=== PATIENT | male | born 1945 | race Hispanic/Latino ===

== ENCOUNTER 2018-07-27 11:45 | Inpatient (IN) | payer BC, MEDICARE ==
[2018-07-27] MEDS ORDERED: CARDIZEM IV ONE ×2 (12:07→12:38)
[2018-07-27] MEDS ORDERED: NACL 0.9% 1000 ML 1,000 ML ONE (12:19)
[2018-07-27 13:26] LABS: Hematocrit 40.7 % (35.5-45.6); Hemoglobin 13.1 gm/dl (11.8-15.2); Mean Corpuscular HGB Conc 32 % (32-34); Mean Corpuscular Volume 104 fl (84-94); Platelet Count 242 K/mm3 (140-440); Red Blood Count 3.91 M/mm3 (3.65-5.03); Red Cell Distribution Width 16.3 % (13.2-15.2)
[2018-07-27 13:32] LABS: INR 1.34 (0.87-1.13)
[2018-07-27 13:33] LABS: Partial Thromboplastin Time 34.3 Sec. (24.2-36.6)
[2018-07-27 13:53] LABS: Alanine Aminotransferase 16 units/L (7-56); Albumin 3.6 g/dL (3.9-5); BUN/Creatinine Ratio 24; Blood Urea Nitrogen 38 mg/dL (9-20); Calcium 9.9 mg/dL (8.4-10.2); Hemolysis Index 16
[2018-07-27] MEDS ORDERED: NACL 0.9% 1000 ML 1,000 ML IV ONE (13:55)
[2018-07-27] MEDS ORDERED: CARDIZEM/D5W 100MG/100ML 100 MG/100 ML BAG IV SCH (14:00)
[2018-07-27 14:11] LABS: Basophils % (Manual) 0 % (0.0-1.8); Eosinophils % (Manual) 0 % (0.0-4.3); Myelocytes # (Manual) 0.6 K/mm3; Total Cells Counted 100
[2018-07-27 14:12] LABS: Anisocytosis 1+; Platelet Estimate Consistent w Auto; Toxic Vacuolation Few
--- NOTE | 2018-07-27 14:32 | Emergency Department Report ---
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 Patient states for the last 2 days he's been short of breath and fatigue. Patient states he was at his steam frame operator's office today and received an echogram along with blood work and was told to come to the emergency department. Patient denies any chest pain, abdominal pain, headache. -: Gradual Severity scale (0 -10): 0 Consistency: constant Improves with: none Worsens with: none Associated Symptoms: denies other symptoms Treatments Prior to Arrival: none - Related Data Home Medications Medication Instructions Recorded Confirmed Last Taken Pravastatin Sodium 40 mg PO DAILY 12/12/13 07/27/18 07/27/18 Fluticasone/Salmeterol [Advair 1 puff IH BID 12/31/15 07/27/18 07/27/18 Diskus 250-50 mcg] ALBUTEROL Inhaler (OR & NICU) 2 puff IH QID PRN 07/27/18 07/27/18 Unknown [Proair] Aspirin [Aspirin BABY CHEW TAB] 81 mg PO DAILY 07/27/18 07/27/18 07/27/18 Cyanocobalamin (Vitamin B-12) 2,500 mcg PO DAILY 07/27/18 07/27/18 07/27/18 [Vitamin B12] [place]-3S/Dha/Epa/Fish Oil/D3 [Fish 1 each PO DAILY 07/27/18 07/27/18 07/27/18 Mie-Ycavi-2-Vit D Softgel] Previous Rx's Medication Instructions Recorded Last Taken Type Clopidogrel [Plavix] 75 mg PO DAILY #30 tablet 04/03/15 07/27/18 Rx amLODIPine [Norvasc] 10 mg PO DAILY #30 tablet 04/03/15 07/27/18 Rx Allergies Allergy/AdvReac Type Severity Reaction Status Date / Time No Known Allergies Allergy Verified 12/12/13 06:46 ED Review of Systems ROS: Stated complaint: SOB Other details as noted in HPI Constitutional: denies: chills, fever Eyes: denies: eye pain, eye discharge, vision change ENT: denies: ear pain, throat pain Respiratory: shortness of breath. denies: cough, wheezing Cardiovascular: palpitations. denies: chest pain Endocrine: no symptoms reported Gastrointestinal: denies: abdominal pain, nausea, diarrhea Genitourinary: denies: urgency, dysuria Musculoskeletal: denies: back pain, joint swelling, arthralgia Skin: denies: rash, lesions Neurological: denies: headache, weakness, paresthesias Psychiatric: denies: anxiety, depression Hematological/Lymphatic: denies: easy bleeding, easy bruising ED Past Medical Hx - Past Medical History Hx Hypertension: Yes (9yrs ago) Hx Heart Attack/AMI: No Hx Deep Vein Thrombosis: Yes Hx Liver Disease: No Hx Renal Disease: No Hx Sickle Cell Disease: No Hx Arthritis: Yes Hx Seizures: No Hx Asthma: No Hx COPD: Yes Additional medical history: Skin cancer - Surgical History Hx Pacemaker: No Hx Internal Defibrillator: No Additional Surgical History: Vein bypass- Right Leg - Social History Smoking Status: Former Smoker Substance Use Type: None - Medications Home Medications: Home Medications Medication Instructions Recorded Confirmed Last Taken Type Pravastatin Sodium 40 mg PO DAILY 12/12/13 07/27/18 07/27/18 History Clopidogrel [Plavix] 75 mg PO DAILY #30 tablet 04/03/15 07/27/18 07/27/18 Rx amLODIPine [Norvasc] 10 mg PO DAILY #30 tablet 04/03/15 07/27/18 07/27/18 Rx Fluticasone/Salmeterol [Advair 1 puff IH BID 12/31/15 07/27/18 07/27/18 History Diskus 250-50 mcg] ALBUTEROL Inhaler (OR & NICU) 2 puff IH QID PRN 07/27/18 07/27/18 Unknown History [Proair] Aspirin [Aspirin BABY CHEW TAB] 81 mg PO DAILY 07/27/18 07/27/18 07/27/18 History Cyanocobalamin (Vitamin B-12) 2,500 mcg PO DAILY 07/27/18 07/27/18 07/27/18 History [Vitamin B12] [place]-3S/Dha/Epa/Fish Oil/D3 [Fish 1 each PO DAILY 07/27/18 07/27/18 07/27/18 History Jfu-Jbvxq-0-Vit D Softgel] ED Physical Exam - General Limitations: No Limitations General appearance: alert, in no apparent distress - Head Head exam: Present: atraumatic, normocephalic - Eye Eye exam: Present: normal appearance, PERRL, EOMI - ENT ENT exam: Present: mucous membranes moist - Neck Neck exam: Present: normal inspection - Respiratory Respiratory exam: Present: normal lung sounds bilaterally. Absent: respiratory distress, wheezes, rales - Cardiovascular Cardiovascular Exam: Present: normal rhythm, tachycardia, other (irregularly irregular). Absent: systolic murmur, diastolic murmur, rubs, gallop - GI/Abdominal GI/Abdominal exam: Present: soft, normal bowel sounds. Absent: distended, tenderness - Rectal Rectal exam: Present: deferred - Extremities Exam Extremities exam: Present: normal inspection - Back Exam Back exam: Present: normal inspection - Neurological Exam Neurological exam: Present: alert, oriented X3, CN II-XII intact. Absent: motor sensory deficit - Psychiatric Psychiatric exam: Present: normal affect, normal mood - Skin Skin exam: Present: warm, dry, intact, normal color. Absent: rash ED Course Vital Signs 07/27/18 07/27/18 07/27/18 11:54 12:00 12:08 Temperature 98.0 F Pulse Rate 163 H 166 H Respiratory 35 H Rate Blood Pressure 111/89 111/89 O2 Sat by Pulse 87 81 L 78 L Oximetry 07/27/18 07/27/18 07/27/18 12:16 12:30 12:46 Temperature Pulse Rate 147 H 134 H 146 H Respiratory 34 H 32 H 30 H Rate Blood Pressure 98/53 98/53 98/53 O2 Sat by Pulse 73 L 73 L 74 L Oximetry 07/27/18 12:57 Temperature Pulse Rate 142 H Respiratory Rate Blood Pressure 98/61 O2 Sat by Pulse Oximetry ED Medical Decision Making - Lab Data Result diagrams: 07/27/18 12:59 07/27/18 12:59 Lab Results 07/27/18 07/27/18 07/27/18 Range/Units 12:59 12:59 12:59 WBC 15.8 H (4.5-11.0) K/mm3 RBC 3.91 (3.65-5.03) M/mm3 Hgb 13.1 (11.8-15.2) gm/dl Hct 40.7 (35.5-45.6) % MCV 104 H (84-94) fl MCH 34 H (28-32) pg MCHC 32 (32-34) % RDW 16.3 H (13.2-15.2) % Plt Count 242 (140-440) K/mm3 Add Manual Diff Complete Total Counted 100 Seg Neutrophils % Layout Operator Seg Neuts % (Manual) 88.0 H (40.0-70.0) % Band Neutrophils % 0 % Lymphocytes % (Manual) 3.0 L (13.4-35.0) % Reactive Lymphs % (Man) 0 % Monocytes % (Manual) 3.0 (0.0-7.3) % Eosinophils % (Manual) 0 (0.0-4.3) % Basophils % (Manual) 0 (0.0-1.8) % Metamyelocytes % 2.0 % Myelocytes % 4.0 % Promyelocytes % 0 % Blast Cells % 0 % Nucleated RBC % Not Reportable Seg Neutrophils # Man 13.9 H (1.8-7.7) K/mm3 Band Neutrophils # 0.0 K/mm3 Lymphocytes # (Manual) 0.5 L (1.2-5.4) K/mm3 Abs React Lymphs (Man) 0.0 K/mm3 Monocytes # (Manual) 0.5 (0.0-0.8) K/mm3 Eosinophils # (Manual) 0.0 (0.0-0.4) K/mm3 Basophils # (Manual) 0.0 (0.0-0.1) K/mm3 Metamyelocytes # 0.3 K/mm3 Myelocytes # 0.6 K/mm3 Promyelocytes # 0.0 K/mm3 Blast Cells # 0.0 K/mm3 WBC Morphology Not Reportable Hypersegmented Neuts Not Reportable Hyposegmented Neuts Not Reportable Hypogranular Neuts Not Reportable Smudge Cells Not Reportable Toxic Granulation Not Reportable Toxic Vacuolation Few Dohle Bodies Not Reportable Pelger-Huet Anomaly Not Reportable Janiya Rods Not Reportable Platelet Estimate Consistent w auto Clumped Platelets Not Reportable Plt Clumps, EDTA Not Reportable Large Platelets Not Reportable Giant Platelets Not Reportable Platelet Satelliting Not Reportable Plt Morphology Comment Not Reportable RBC Morphology Not Reportable Dimorphic RBCs Not Reportable Polychromasia Not Reportable Hypochromasia Not Reportable Poikilocytosis Not Reportable Anisocytosis 1+ Microcytosis Not Reportable Macrocytosis Not Reportable Spherocytes Not Reportable Pappenheimer Bodies Not Reportable Sickle Cells Not Reportable Target Cells Not Reportable Tear Drop Cells Not Reportable Ovalocytes Not Reportable Helmet Cells Not Reportable Lr-[place] Bodies Not Reportable [place] Rings Not Reportable [place] Cells Not Reportable Bite Cells Not Reportable Crenated Cell Not Reportable Elliptocytes Not Reportable Acanthocytes (Spur) Not Reportable Rouleaux Not Reportable Hemoglobin C Crystals Not Reportable Schistocytes Not Reportable Malaria parasites Not Reportable Jigar Bodies Not Reportable Hem Pathologist Commnt No PT 17.0 H (12.2-14.9) Sec. INR 1.34 H (0.87-1.13) APTT 34.3 (24.2-36.6) Sec. Sodium 139 (137-145) mmol/L Potassium 5.0 (3.6-5.0) mmol/L Chloride 100.0 (98-107) mmol/L Carbon Dioxide 21 L (22-30) mmol/L Anion Gap 23 mmol/L BUN 38 H (9-20) mg/dL Creatinine 1.6 H (0.8-1.5) mg/dL Estimated GFR 42 ml/min BUN/Creatinine Ratio 24 % Glucose 78 (75-100) mg/dL Calcium 9.9 (8.4-10.2) mg/dL Total Bilirubin 1.30 H (0.1-1.2) mg/dL AST 15 (5-40) units/L ALT 16 (7-56) units/L Alkaline Phosphatase 62 (35-129) units/L Troponin T < 0.010 (0.00-0.029) ng/mL NT-Pro-B Natriuret Pep 3913 H (0-900) pg/mL Total Protein 6.2 L (6.3-8.2) g/dL Albumin 3.6 L (3.9-5) g/dL Albumin/Globulin Ratio 1.4 % - EKG Data -: EKG Interpreted by Me Rate: tachycardia (irregularly irregular) - Medical Decision Making Patient given 2 boluses of Cardizem at 20 mg's heart rate decreasing from 180 to 130 patient was placed on a Cardizem drip Patient given Lasix IV Critical care attestation.: If time is entered above; I have spent that time in minutes in the direct care of this critically ill patient, excluding procedure time. ED Disposition Clinical Impression: Atrial fibrillation with RVR Disposition: OP ADMIT IP TO THIS HOSP Is pt being admited?: Yes Does the pt Need Aspirin: Yes Condition: Fair Referrals: PRIMARY CARE, [Primary Care Provider] - 3-5 Days
[2018-07-27] MEDS ORDERED: LASIX IV ONE (14:52)
[2018-07-27] MEDS ORDERED: BABY ASPIRIN PO ONE (15:16)
--- NOTE | 2018-07-27 15:38 | History and Physical Report ---
History of Present Illness Chief complaint: My chest is hurting, and my heart is beating fast History of present illness: 73 YO Male with H/O COPD, PVD, HTN, HLD, Seizure Disorder, Skin Cancer presents to ED for evaluation. Pt states that he has experienced shortness and chest palpitations over the past 2 days with worsening symptoms over the past 1 day. Pt acknowledges decreased exercise tolerance, as well as dypsnea on exertion. 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 Pt denies fever, chills, leg swelling, calf pain, CP with deep breathing, hemoptysis, Prolonged air/car travel, or immobility, Back Pain, Syncope, Lightheadedness, recent ill contacts, unintentional weight loss, night sweats, or bone pain. Pt seen and evaluated in ED and found to have Atrial Fib with RVR refractory to cardizem drip, but improved with Amiodarone Drip, Acute Hypoxemic Respiratory Failure, SIRS. Pt admitted to ICU. Cardiology consulted in ED. Pulmonary team consulted in ED. Past History Past Medical History: cancer, COPD, hypertension, PVD Past Surgical History: Other (Right leg surgery) Social history: , lives with family. denies: smoking, alcohol abuse, prescription drug abuse Family history: hypertension Medications and Allergies Allergies Allergy/AdvReac Type Severity Reaction Status Date / Time No Known Allergies Allergy Verified 12/12/13 06:46 Home Medications Medication Instructions Recorded Confirmed Last Taken Type Pravastatin Sodium 40 mg PO DAILY 12/12/13 07/27/18 07/27/18 History Clopidogrel [Plavix] 75 mg PO DAILY #30 tablet 04/03/15 07/27/18 07/27/18 Rx amLODIPine [Norvasc] 10 mg PO DAILY #30 tablet 04/03/15 07/27/18 07/27/18 Rx Fluticasone/Salmeterol [Advair 1 puff IH BID 12/31/15 07/27/18 07/27/18 History Diskus 250-50 mcg] ALBUTEROL Inhaler (OR & NICU) 2 puff IH QID PRN 07/27/18 07/27/18 Unknown Hi story [Proair] Aspirin [Aspirin BABY CHEW TAB] 81 mg PO DAILY 12/12/18 12/12/18 12/12/18 His tory Cyanocobalamin (Vitamin B-12) 2,500 mcg PO DAILY 07/27/18 07/27/18 07/27/18 History [Vitamin B12] [place]-3S/Dha/Epa/Fish Oil/D3 [Fish 1 each PO DAILY 07/27/18 07/27/18 07/27/18 History [place]-7-Vit D Softgel] Active Meds: Active Medications Diltiazem HCl (Cardizem/D5w 100mg/100ml) 100 mg in 100 mls @ 5 mls/hr IV DIRECT IGNACIO; Protocol Last Admin: 07/27/18 13:48 Dose: 5 mg/hr, 5 mls/hr Documented by: Review of Systems Constitutional: no weight loss, no weight gain, no fever Ears, nose, mouth and throat: no ear pain, no ear discharge, no tinnitis, no decreased hearing, no nose pain Cardiovascular: chest pain, palpitations, rapid/irregular heart beat, shortness of breath, decreased exercise tolerance Respiratory: no cough, no cough with sputum, no excessive sputum, no hemoptysis Gastrointestinal: no nausea, no vomiting, no diarrhea, no constipation Genitourinary Male: no hematuria, no flank pain, no discharge, no urinary frequency Rectal: no pain, no incontinence, no bleeding Musculoskeletal: no neck stiffness, no neck pain, no arm numbness/tingling, no low back pain Integumentary: no rash, no pruritis, no redness, no sores, no wounds Neurological: no paralysis, no weakness, no parathesias, no numbness, no tingling, no seizures Psychiatric: no anxiety, no memory loss, no change in sleep habits, no sleep disturbances, no insomnia, no hypersomnia, no change in appetite Endocrine: no cold intolerance, no heat intolerance, no polyphagia, no excessive thirst, no polydipsia, no polyuria Hematologic/Lymphatic: no easy bruising, no easy bleeding, no lymphadenopathy, no lymphedema Allergic/Immunologic: no urticaria, no allergic rhinitis, no wheezing, no pers istent infections, no anaphylaxis, no angioedema Exam - Constitutional Vitals: Temp Pulse Resp BP Pulse Ox 98.0 F 157 H 37 H 118/64 60 L 07/27/18 12:08 07/27/18 15:00 07/27/18 15:16 07/27/18 15:16 07/27/18 15:16 General appearance: Present: mild distress - EENT Eyes: Present: PERRL ENT: hearing intact, clear oral mucosa - Neck Neck: Present: supple, normal ROM - Respiratory Respiratory effort: normal Respiratory: bilateral: CTA - Cardiovascular Rhythm: irregularly irregular Heart Sounds: Present: S1 & S2. Absent: rub, click - Extremities Extremities: pulses symmetrical, No edema Peripheral Pulses: within normal limits - Abdominal General gastrointestinal: Present: soft, non-tender, non-distended, normal bowel sounds Male genitourinary: Present: normal - Integumentary Integumentary: Present: clear, warm, dry - Musculoskeletal Musculoskeletal: gait normal, strength equal bilaterally - Psychiatric Psychiatric: appropriate mood/affect, intact judgment & insight - Neurologic Neurologic: CNII-XII intact, moves all extremities Results - Labs CBC & Chem 7: 07/27/18 17:59 07/27/18 12:59 Labs: Abnormal lab results 07/27/18 07/27/18 07/27/18 Range/Units 12:59 12:59 12:59 WBC 15.8 H (4.5-11.0) K/mm3 MCV 104 H (84-94) fl MCH 34 H (28-32) pg RDW 16.3 H (13.2-15.2) % Seg Neuts % (Manual) 88.0 H (40.0-70.0) % Lymphocytes % (Manual) 3.0 L (13.4-35.0) % Seg Neutrophils # Man 13.9 H (1.8-7.7) K/mm3 Lymphocytes # (Manual) 0.5 L (1.2-5.4) K/mm3 PT 17.0 H (12.2-14.9) Sec. INR 1.34 H (0.87-1.13) Carbon Dioxide 21 L (22-30) mmol/L BUN 38 H (9-20) mg/dL Creatinine 1.6 H (0.8-1.5) mg/dL Total Bilirubin 1.30 H (0.1-1.2) mg/dL NT-Pro-B Natriuret Pep 3913 H (0-900) pg/mL Total Protein 6.2 L (6.3-8.2) g/dL Albumin 3.6 L (3.9-5) g/dL Assessment and Plan - Patient Problems (1) Acute respiratory failure Current Visit: No Status: Acute Qualifiers: Respiratory failure complication: hypoxia Qualified Code(s): J96.01 - Acute respiratory failure with hypoxia Plan to address problem: Admit to ICU, chest x ray, bnp, heparin drip, supplemental oxygen, pulse oximetry, ABG, NIPPV as clinically indicated, xopenex nebs, Pulmonary consulted in ED. The high probability of a clinically significant, sudden or life threatening deterioration of the [pulmonary, cardiac, renal] system(s) required my full and direct attention, intervention and personal management. The aggregate critical care time was [65] minutes. This time is in addition to time spent performing reported procedures but includes the following: [x] Data Review and interpretation [x] Patient assessment and monitoring of vital signs [x] Documentation [x] Medication orders and management (2) ARF (acute renal failure) with tubular necrosis Current Visit: Yes Status: Acute Plan to address problem: IVF resuscitation therapy as tolerated, serial bmp, monitor uop q shift, monitor serum creatnine (3) Atrial fibrillation Current Visit: Yes Status: Acute Qualifiers: Atrial fibrillation type: persistent Qualified Code(s): I48.1 - Persistent atrial fibrillation Plan to address problem: IV antiarrythmic therpay with amiodarone, supportive care, therapeutic anticoagulation, (4) CHF (congestive heart failure) Current Visit: Yes Status: Acute Qualifiers: Heart failure type: systolic Heart failure chronicity: acute Qualified Code(s): I50.21 - Acute systolic (congestive) heart failure Plan to address problem: Admit to ICU, supportive care, strict I/o, daily weight, cardiology consulted in ED, afterload reduction, (5) Sepsis Current Visit: Yes Status: Acute Qualifiers: Sepsis type: sepsis due to unspecified organism Qualified Code(s): A41.9 - Sepsis, unspecified organism Plan to address problem: IV antibiotic therpay, monitor uop q shift, gentle IVF resuscitation secondary to CHF, serial lactic acid level, chest x ray, urinalysis, blood cultures, (6) Acidosis Current Visit: Yes Status: Acute Plan to address problem: IVF resuscitation therapy, serial lactic acid level (7) DVT prophylaxis Current Visit: Yes Status: Acute Plan to address problem: SCD to BLE while in bed.
[2018-07-27] MEDS ORDERED: SODIUM CHLORIDE FLUSH SYRINGE 10 ML IV PRN (15:59)
--- NOTE | 2018-07-27 16:04 | XRay Report ---
FINAL REPORT EXAM: XR CHEST 1V AP HISTORY: SOB. TECHNIQUE: Frontal chest x-ray. PRIORS: None currently available. FINDINGS: Hypoaerated lungs accentuate the pulmonary markings and cardiac silhouette. Mild cardiomegaly. Aortic calcifications. Prominent central pulmonary markings. Ill-defined opacity left lung base suggest effusion with adjace nt infiltrate or subsegmental atelectasis. No pneumothorax. Focal infiltrate or subsegmental atelecta sis at the right lung base. There are no suspicious osseous lesions. IMPRESSION: Mild cardiomegaly. Pulmonary findings suggest pulmonary vascular congestion with edema. Please correlate for CHF. Small left pleural effusion. Mild bibasilar subsegmental atelectasis and or infiltrates.
[2018-07-27 16:35] LABS: Free T4 (Free Thyroxine) 1.28 ng/dL (0.76-1.46)
--- NOTE | 2018-07-27 16:36 | Event Note ---
Date: 07/27/18 Pt sent from our office for eval/management of atrial fibrillation with RVR. Pt reports SOB since Wednesday evening, no chest pain or SOB. Agree with amio gtt. Initiate PO cardizem. Initiate heparin gtt. Tx to CCU. Pt underwent echo in our office this AM - will obtain report. Pete WILLIAMSON NP / DR. SOLARES
[2018-07-27] MEDS: CORDARONE 900 MG in D5W 482 ML IV SCH (16:42)
[2018-07-27] MEDS ORDERED: CORDARONE 150 MG in D5W 97 ML IV ONE (16:58)
[2018-07-27] MEDS ORDERED: NACL 0.45% 1000 ML 2,000 ML IV SCH (17:00)
[2018-07-27] MEDS ORDERED: HEPARIN 10,000 UNITS/10 ML IV ONE (17:37)
[2018-07-27 17:52] LABS: INR 1.24 (0.87-1.13); Partial Thromboplastin Time 31.9 Sec. (24.2-36.6)
[2018-07-27 18:10] LABS: Hemoglobin 13.5 gm/dl (11.8-15.2)
[2018-07-27] MEDS: HEPARIN/ 0.45% NACL-25,000 UNIT/500 ML 25,000 UNIT/500 ML BAG IV SCH (18:10)
[2018-07-27] MEDS ORDERED: XOPENEX IH ONE ×2 (18:17→18:45)
[2018-07-27] MEDS ORDERED: DIPRIVAN 10 MG/ML 1,000 MG/100 ML BOTTLE IV ONE (20:06)
[2018-07-27] MEDS ORDERED: AMIDATE IV ONE ×2 (20:06→23:00)
[2018-07-27] MEDS ORDERED: ARTIFICIAL TEARS OPHTH OINT OU PRN (20:09)
[2018-07-27] MEDS ORDERED: QUELICIN IV ONE (20:13)
--- NOTE | 2018-07-27 20:16 | Procedure Note ---
Date of procedure: 07/27/18 Pre-op diagnosis: hypoxia. resp distress. Post-op diagnosis: same Procedure: Patient satting 60-70% on a nonrebreather. Patient having increased work to breathe. Patient having retractions. Discussed case with hospitalist. Hospitalist requested the patient to be intubated. Procedure note: 20 mg of etomidate and 100 mg succinylcholine given. Patient intubated with a fiberoptic scope. 7.5 tube placed at 22 at the lip. Patient today without problems. No difficulties or palpitations. Patient's oxygen saturation immediately increased after intubation. Patient satting 97% post procedure. Patient placed on sedation. Placement confirmation with chest x-ray. Disposition: ICU
[2018-07-27] MEDS: DIPRIVAN 10 MG/ML 1,000 MG/100 ML BOTTLE IV SCH (20:20)
[2018-07-27] MEDS: SODIUM CHLORIDE FLUSH SYRINGE 10 ML IV SCH (21:30)
[2018-07-27] MEDS: CARDIZEM PO SCH (21:37)
[2018-07-27] MEDS: PULMICORT IH SCH (21:46)
[2018-07-27] MEDS: BROVANA NEBU IH SCH (21:46)
[2018-07-27] MEDS ORDERED: NON-FORMULARY (Fluticasone/Salmeterol [Advair Diskus 250-50 Mcg] 1 PUFF) IH SCH (22:00)
--- NOTE | 2018-07-27 22:03 | XRay Report ---
FINAL REPORT EXAM: XR CHEST 1V AP HISTORY: ETT placement TECHNIQUE: AP portable view of the chest. PRIORS: Chest x-ray performed earlier on the same day FINDINGS: There is an endotracheal tube in place which appears adequately positioned in the distal trachea. The re is an NG tube in place which courses below the diaphragm and below the lower margin of the film. The cardiomediastinal silhouette appears normal. There is prominence of the bilateral interstitial ma rkings without change. There is a left basilar opacity consistent with pleural effusion without eric e. The bones and soft tissues are unremarkable. IMPRESSION: The endotracheal tube appears adequately positioned. There is a left basilar opacity consistent with a pleural effusion. Prominent interstitial markings suspicious for pulmonary edema.
[2018-07-27] MEDS ORDERED: QUELICIN ONE (23:00)
[2018-07-27] MEDS ORDERED: NACL 0.45% 1000 ML 1,000 ML IV SCH (23:15)
[2018-07-27] MEDS ORDERED: LASIX IV STA (23:18)
[2018-07-27] MEDS: ROCEPHIN/NS 2 GM/100 ML 2 GM/100 ML BAG IV SCH (23:51)
--- NOTE | 2018-07-28 03:34 | XRay Report ---
FINAL REPORT PROCEDURE: XR CHEST 1V AP TECHNIQUE: Chest radiograph anteroposterior view. CPT 88807 HISTORY: follow up respiratory failure COMPARISON: 07/27/2018 FINDINGS: Heart: Normal. Mediastinum/Vessels: Normal. Lungs/Pleural space: Left lower lobe infiltrates and effusion unchanged from prior study. Lungs are o therwise expanded. There are mild fibrotic changes. There is pleural thickening at the right lung ape x. There is no pneumothorax.. Bony thorax: No acute osseous abnormality. Life support devices: ET tube is in the distal trachea. NG tube is in the stomach.. IMPRESSION: The heart size is normal.. Left lower lobe infiltrates and effusion unchanged from prior study. Lungs are otherwise expanded. Th ere are mild fibrotic changes. There is pleural thickening at the right lung apex. There is no pneumo thorax.. ET tube is in the distal trachea. NG tube is in the stomach..
[2018-07-28] MEDS ORDERED: TYLENOL PR PRN (04:34)
[2018-07-28] MEDS: DIPRIVAN 10 MG/ML 1,000 MG/100 ML BOTTLE IV SCH ×2 (04:45→17:39)
[2018-07-28] MEDS ORDERED: NACL 0.9% 250ML 250 ML IV ONE ×2 (04:53→10:30)
[2018-07-28] MEDS ORDERED: VANCOMYCIN PHARMACY TO DOSE IV SCH (05:00)
[2018-07-28] MEDS ORDERED: VANCOMYCIN 1,750 MG in NACL 0.9% 500 ML 500 ML IV ONE (05:00)
[2018-07-28] MEDS: CARDIZEM PO SCH ×4 (05:29→17:40)
[2018-07-28] MEDS: CORDARONE 900 MG in D5W 482 ML IV SCH (05:46)
[2018-07-28 06:33] LABS: Hematocrit 36.4 % (35.5-45.6); Hemoglobin 11.5 gm/dl (11.8-15.2); Mean Corpuscular HGB Conc 32 % (32-34); Mean Corpuscular Volume 104 fl (84-94); Platelet Count 275 K/mm3 (140-440); Red Blood Count 3.51 M/mm3 (3.65-5.03); Red Cell Distribution Width 16.6 % (13.2-15.2)
[2018-07-28 06:44] LABS: Calcium 9.3 mg/dL (8.4-10.2)
[2018-07-28] MEDS: BROVANA NEBU IH SCH ×2 (08:22→20:06)
[2018-07-28] MEDS: PULMICORT IH SCH ×3 (08:23→20:06)
[2018-07-28 09:18] LABS: Band Neutrophils # (Manual) 3.4 K/mm3; Basophils % (Manual) 0 % (0.0-1.8); Eosinophils % (Manual) 0 % (0.0-4.3); Total Cells Counted 100
[2018-07-28 09:19] LABS: Anisocytosis 1+; Dohle Bodies 1+
[2018-07-28 09:20] LABS: Giant Platelets Few; Platelet Estimate Consistent w Auto
[2018-07-28] MEDS ORDERED: NON-FORMULARY (Cyanocobalamin (Vitamin B-12) [Vitamin B12] 2,500 MCG) PO SCH (10:00)
[2018-07-28] MEDS ORDERED: EPA PO SCH (10:00)
[2018-07-28] MEDS ORDERED: FISH OIL PO SCH (10:00)
[2018-07-28] MEDS ORDERED: D3 PO SCH (10:00)
[2018-07-28] MEDS ORDERED: OMEGA PO SCH (10:00)
[2018-07-28] MEDS ORDERED: DHA PO SCH (10:00)
--- NOTE | 2018-07-28 10:58 | Consultation ---
History of Present Illness Consult date: 07/28/18 Requesting physician: NARCISA MEJIA Reason for consult: other (Acute Hypoxemic Respiratory Failure; Sepsis Syndrome) History of present illness: PULMONARY/CCM CONSULT NOTE (Full dictation # [id number]) Please see dictated notes for full details Past History Past Medical History: cancer, COPD, hypertension, PVD Past Surgical History: Other (Right leg surgery) Social history: , lives with family. denies: smoking, alcohol abuse, prescription drug abuse Family history: hypertension Medications and Allergies Allergies Allergy/AdvReac Type Severity Reaction Status Date / Time No Known Allergies Allergy Verified 12/12/13 06:46 Home Medications Medication Instructions Recorded Confirmed Last Taken Type Pravastatin Sodium 40 mg PO DAILY 12/12/13 07/27/18 07/27/18 History Clopidogrel [Plavix] 75 mg PO DAILY #30 tablet 04/03/15 07/27/18 07/27/18 Rx amLODIPine [Norvasc] 10 mg PO DAILY #30 tablet 04/03/15 07/27/18 07/27/18 Rx Fluticasone/Salmeterol [Advair 1 puff IH BID 12/31/15 07/27/18 07/27/18 History Diskus 250-50 mcg] ALBUTEROL Inhaler (OR & NICU) 2 puff IH QID PRN 07/27/18 07/27/18 Unknown History [Proair] Aspirin [Aspirin BABY CHEW TAB] 81 mg PO DAILY 07/27/18 07/27/18 07/27/18 History Cyanocobalamin (Vitamin B-12) 2,500 mcg PO DAILY 07/27/18 07/27/18 07/27/18 History [Vitamin B12] [place]-3S/Dha/Epa/Fish Oil/D3 [Fish 1 each PO DAILY 07/27/18 07/27/18 07/27/18 History Bjx-Akjen-3-Vit D Softgel] Active Meds: Active Medications Acetaminophen (Tylenol) 650 mg ND Q4H PRN PRN Reason: Fever >101 Last Admin: 07/28/18 05:29 Dose: 650 mg Documented by: Amlodipine Besylate (Norvasc) 10 mg PO DAILY [facility] Arformoterol Tartrate (Brovana Nebu) 15 mcg IH Q12HRT [facility] Last Admin: 07/28/18 08:22 Dose: 15 mcg Documented by: Aspirin (Baby Aspirin) 81 mg PO DAILY [facility] Budesonide (Pulmicort) 0.5 mg IH Q12HRT [facility] Last Admin: 07/28/18 08:23 Dose: 0.5 mg Documented by: Clopidogrel Bisulfate (Plavix) 75 mg PO DAILY [facility] Cyanocobalamin (Vitamin B-12) 2,500 mcg PO QDAY [facility] Diltiazem HCl (Cardizem) 60 mg PO Q6HR [facility] Last Admin: 07/28/18 05:29 Dose: Not Given Documented by: Famotidine (Pepcid) 20 mg IV DAILY [facility] Hydrophilic Ointment (Vaseline Lip Therapy) 1 applic TP Q2HR PRN PRN Reason: Dry Lips Amiodarone HCl 900 mg/ (Dextrose) 500 mls @ 33.33 mls/hr IV DIRECT [facility]; Protocol Last Titration: 07/28/18 07:20 Dose: 0.5 mg/min, 16.67 mls/hr Documented by: Ceftriaxone Sodium (Rocephin/Ns 2 Gm/100 Ml) 2 gm in 100 mls @ 200 mls/hr IV Q24H [facility]; Protocol Last Infusion: 07/28/18 00:21 Dose: Infused Documented by: Heparin Sodium/Sodium Chloride (Heparin/ 0.45% Nacl-25,000 Unit/500 Ml) 25,000 unit in 500 mls @ 24 mls/hr IV TITR [facility]; Protocol Last Titration: 07/28/18 09:10 Dose: 1,450 units/hr, 29 mls/hr Documented by: Propofol (Diprivan 10 Mg/Ml) 1,000 mg in 100 mls @ 2.531 mls/hr IV TITR [facility]; Protocol Last Admin: 07/28/18 04:45 Dose: 15 mcg/kg/min, 7.593 mls/hr Documented by: Sodium Chloride (Nacl 0.45% 1000 Ml) 1,000 mls @ 20 mls/hr IV DIRECT [facility] Last Infusion: 07/28/18 00:21 Dose: 20 mls/hr Documented by: Multi-Ingred Cream/Lotion/Oil/Oint (Artificial Tears Ophth Oint) 1 applic OU Q4HR PRN PRN Reason: Dry Eye(s) Pravastatin Sodium (Pravachol) 40 mg PO DAILY [facility] Sodium Chloride (Sodium Chloride Flush Syringe 10 Ml) 10 ml IV BID [facility] Last Admin: 07/27/18 21:30 Dose: Not Given Documented by: Sodium Chloride (Sodium Chloride Flush Syringe 10 Ml) 10 ml IV PRN PRN PRN Reason: LINE FLUSH Physical Examination Vital signs: Vital Signs Pulse Ox 87 07/27/18 11:54 Results - Laboratory Findings CBC and BMP: 07/28/18 06:01 07/28/18 06:01 ABG POC ABG pH 7.186 (7.35-7.45) L 07/28/18 05:40 POC ABG pCO2 60.1 (35-45) H 07/28/18 05:40 POC ABG pO2 68 (80-105) L 07/28/18 05:40 POC ABG HCO3 22.7 07/28/18 05:40 POC ABG Total CO2 25 07/28/18 05:40 POC ABG O2 Sat 88 07/28/18 05:40 PT/INR, D-dimer PT 16.0 Sec. (12.2-14.9) H 07/27/18 17:09 INR 1.24 (0.87-1.13) H 07/27/18 17:09 D-Dimer 798.17 ng/mlDDU (0-234) H 07/27/18 15:52 Abnormal lab findings: Abnormal Labs 07/27/18 07/27/18 07/27/18 12:59 12:59 12:59 WBC 15.8 H RBC Hgb MCV 104 H MCH 34 H RDW 16.3 H Seg Neuts % (Manual) 88.0 H Lymphocytes % (Manual) 3.0 L Seg Neutrophils # Man 13.9 H Lymphocytes # (Manual) 0.5 L PT 17.0 H INR 1.34 H D-Dimer Heparin Anti-Xa Level POC ABG pH POC ABG pCO2 POC ABG pO2 Sodium Potassium Chloride Carbon Dioxide 21 L BUN 38 H Creatinine 1.6 H Lactic Acid Total Bilirubin 1.30 H NT-Pro-B Natriuret Pep 3913 H Total Protein 6.2 L Albumin 3.6 L 07/27/18 07/27/18 07/27/18 15:52 16:12 17:09 WBC RBC Hgb MCV MCH RDW Seg Neuts % (Manual) Lymphocytes % (Manual) Seg Neutrophils # Man Lymphocytes # (Manual) PT 16.0 H INR 1.24 H D-Dimer 798.17 H Heparin Anti-Xa Level POC ABG pH POC ABG pCO2 POC ABG pO2 Sodium Potassium Chloride Carbon Dioxide BUN Creatinine Lactic Acid 5.00 H* Total Bilirubin NT-Pro-B Natriuret Pep Total Protein Albumin 07/27/18 07/27/18 07/27/18 17:59 18:07 21:31 WBC RBC Hgb MCV MCH RDW Seg Neuts % (Manual) Lymphocytes % (Manual) Seg Neutrophils # Man Lymphocytes # (Manual) PT INR D-Dimer Heparin Anti-Xa Level POC ABG pH 7.344 L POC ABG pCO2 POC ABG pO2 36 L Sodium Potassium Chloride Carbon Dioxide BUN Creatinine Lactic Acid 5.20 H* 5.00 H* Total Bilirubin NT-Pro-B Natriuret Pep Total Protein Albumin 07/27/18 07/27/18 07/27/18 21:57 22:42 23:26 WBC RBC Hgb MCV MCH RDW Seg Neuts % (Manual) Lymphocytes % (Manual) Seg Neutrophils # Man Lymphocytes # (Manual) PT INR D-Dimer Heparin Anti-Xa Level POC ABG pH 7.199 L POC ABG pCO2 62.0 H POC ABG pO2 Sodium Potassium Chloride Carbon Dioxide BUN Creatinine Lactic Acid 4.70 H* 5.00 H* Total Bilirubin NT-Pro-B Natriuret Pep Total Protein Albumin 07/28/18 07/28/18 07/28/18 00:45 05:40 05:58 WBC RBC Hgb MCV MCH RDW Seg Neuts % (Manual) Lymphocytes % (Manual) Seg Neutrophils # Man Lymphocytes # (Manual) PT INR D-Dimer Heparin Anti-Xa Level 0.11 L POC ABG pH 7.186 L POC ABG pCO2 60.1 H POC ABG pO2 68 L Sodium Potassium Chloride Carbon Dioxide BUN Creatinine Lactic Acid 4.70 H* Total Bilirubin NT-Pro-B Natriuret Pep Total Protein Albumin 07/28/18 07/28/18 07/28/18 06:01 06:01 07:19 WBC 12.5 H RBC 3.51 L Hgb 11.5 L MCV 104 H MCH 33 H RDW 16.6 H Seg Neuts % (Manual) Lymphocytes % (Manual) Seg Neutrophils # Man Lymphocytes # (Manual) PT INR D-Dimer Heparin Anti-Xa Level 0.14 L POC ABG pH POC ABG pCO2 POC ABG pO2 Sodium 135 L Potassium 5.1 H Chloride 95.0 L Carbon Dioxide 21 L BUN 54 H Creatinine 2.6 H D Lactic Acid Total Bilirubin NT-Pro-B Natriuret Pep Total Protein Albumin 07/28/18 07/28/18 07:19 09:20 WBC RBC Hgb MCV MCH RDW Seg Neuts % (Manual) Lymphocytes % (Manual) Seg Neutrophils # Man Lymphocytes # (Manual) PT INR D-Dimer Heparin Anti-Xa Level POC ABG pH POC ABG pCO2 POC ABG pO2 Sodium Potassium Chloride Carbon Dioxide BUN Creatinine Lactic Acid 4.00 H* 3.90 H* Total Bilirubin NT-Pro-B Natriuret Pep Total Protein Albumin
[2018-07-28] MEDS: BABY ASPIRIN PO SCH (11:21)
[2018-07-28] MEDS: NORVASC PO SCH (11:21)
[2018-07-28] MEDS: PLAVIX PO SCH (11:22)
[2018-07-28] MEDS: PRAVACHOL PO SCH (11:22)
[2018-07-28] MEDS: VITAMIN B-12 PO SCH (11:22)
[2018-07-28] MEDS: SODIUM CHLORIDE FLUSH SYRINGE 10 ML IV SCH ×2 (12:10→21:51)
[2018-07-28] MEDS: PEPCID IV SCH (12:10)
--- NOTE | 2018-07-28 12:34 | Consultation ---
History of Present Illness Consult date: 07/28/18 Requesting physician: NARCISA MEJIA Consult reason: congestive heart failure History of present illness: The pt is a 73 YO male with a past medical history of PVD, COPD, on O2 at nighttime, nonobstructive CAD, HTN, HLP. He is followed in our office by Dr. Bender. Pt presented to our office yesterday for cardiac testing and c/o extreme SOB x 3 days. He was then sent from our office for further eval/management. Yesterday, pt was A&O on evaluation with c/o SOB, no chest pain or palpitations. Pt was noted to be in AFib with RVR and was initiated on amio and heparin gtts and tx to CCU. He developed respiratory failure overnight and was intubated. This AM, he remained intubated and sedated. He converted to NSR overnight. He remains on amio and heparin gtt. LHC done 12/2015 showed nonobstructive CAD, LAD calcified mid 60%, Diagonal 1 patent with mild LI, circ and OM2 patent, OM1 ostial 60% lesion, RCA mid 30% to rtuosity, normal LV function. Treat medically. Echo done 05/2017 showed EF 55-60%, grade 1 diastolic dysfunction, mild TR, RVSP 22mmHg. Past History Past Medical History: CAD, COPD, hypertension, hyperlipidemia, PVD Past Surgical History: Other (Right leg surgery) Social history: , lives with family. denies: smoking, alcohol abuse, prescription drug abuse Family history: hypertension Medications and Allergies Allergies Allergy/AdvReac Type Severity Reaction Status Date / Time No Known Allergies Allergy Verified 12/12/13 06:46 Home Medications Medication Instructions Recorded Confirmed Last Taken Type Pravastatin Sodium 40 mg PO DAILY 12/12/13 07/27/18 07/27/18 History Clopidogrel [Plavix] 75 mg PO DAILY #30 tablet 04/03/15 07/27/18 07/27/18 Rx amLODIPine [Norvasc] 10 mg PO DAILY #30 tablet 04/03/15 07/27/18 07/27/18 Rx Fluticasone/Salmeterol [Advair 1 puff IH BID 12/31/15 07/27/18 07/27/18 History Diskus 250-50 mcg] ALBUTEROL Inhaler (OR & NICU) 2 puff IH QID PRN 07/27/18 07/27/18 Unknown History [Proair] Aspirin [Aspirin BABY CHEW TAB] 81 mg PO DAILY 07/27/18 07/27/18 07/27/18 History Cyanocobalamin (Vitamin B-12) 2,500 mcg PO DAILY 07/27/18 07/27/18 07/27/18 History [Vitamin B12] [place]-3S/Dha/Epa/Fish Oil/D3 [Fish 1 each PO DAILY 07/27/18 07/27/18 07/27/18 History [place]by-Xucov-1-Vit D Softgel] Active Meds: Active Medications Acetaminophen (Tylenol) 650 mg NC Q4H PRN PRN Reason: Fever >101 Last Admin: 07/28/18 05:29 Dose: 650 mg Documented by: Amlodipine Besylate (Norvasc) 10 mg PO DAILY [facility] Last Admin: 07/28/18 11:21 Dose: Not Given Documented by: Arformoterol Tartrate (Brovana Nebu) 15 mcg IH Q12HRT [facility] Last Admin: 07/28/18 08:22 Dose: 15 mcg Documented by: Aspirin (Baby Aspirin) 81 mg PO DAILY [facility] Last Admin: 07/28/18 11:21 Dose: Not Given Documented by: Budesonide (Pulmicort) 0.5 mg IH Q12HRT [facility] Last Admin: 07/28/18 08:23 Dose: 0.5 mg Documented by: Clopidogrel Bisulfate (Plavix) 75 mg PO DAILY [facility] Last Admin: 07/28/18 11:22 Dose: Not Given Documented by: Cyanocobalamin (Vitamin B-12) 2,500 mcg PO QDAY [facility] Last Admin: 07/28/18 11:22 Dose: Not Given Documented by: Diltiazem HCl (Cardizem) 60 mg PO Q6HR [facility] Last Admin: 07/28/18 11:22 Dose: Not Given Documented by: Famotidine (Pepcid) 20 mg IV DAILY [facility] Hydrophilic Ointment (Vaseline Lip Therapy) 1 applic TP Q2HR PRN PRN Reason: Dry Lips Amiodarone HCl 900 mg/ (Dextrose) 500 mls @ 33.33 mls/hr IV DIRECT [facility]; Protocol Last Titration: 07/28/18 07:20 Dose: 0.5 mg/min, 16.67 mls/hr Documented by: Ceftriaxone Sodium (Rocephin/Ns 2 Gm/100 Ml) 2 gm in 100 mls @ 200 mls/hr IV Q 24H [facility]; Protocol Last Infusion: 07/28/18 00:21 Dose: Infused Documented by: Heparin Sodium/Sodium Chloride (Heparin/ 0.45% Nacl-25,000 Unit/500 Ml) 25,000 unit in 500 mls @ 24 mls/hr IV TITR [facility]; Protocol Last Titration: 07/28/18 09:10 Dose: 1,450 units/hr, 29 mls/hr Documented by: Propofol (Diprivan 10 Mg/Ml) 1,000 mg in 100 mls @ 2.531 mls/hr IV TITR [facility]; Protocol Last Admin: 07/28/18 04:45 Dose: 15 mcg/kg/min, 7.593 mls/hr Documented by: Azithromycin 500 mg/ Sodium (Chloride) 250 mls @ 250 mls/hr IV Q24HR [facility] Sodium Chloride (Nacl 0.9% 1000 Ml) 1,000 mls @ 75 mls/hr IV DIRECT [facility] Stop: 07/30/18 02:19 Multi-Ingred Cream/Lotion/Oil/Oint (Artificial Tears Ophth Oint) 1 applic OU Q4HR PRN PRN Reason: Dry Eye(s) Pravastatin Sodium (Pravachol) 40 mg PO DAILY [facility] Last Admin: 07/28/18 11:22 Dose: Not Given Documented by: Sodium Chloride (Sodium Chloride Flush Syringe 10 Ml) 10 ml IV BID [facility] Last Admin: 07/27/18 21:30 Dose: Not Given Documented by: Sodium Chloride (Sodium Chloride Flush Syringe 10 Ml) 10 ml IV PRN PRN PRN Reason: LINE FLUSH Review of Systems Constitutional: no fever, no chills, no sweats Ears, nose, mouth and throat: no ear pain, no nose pain, no sinus pressure, no sinus pain Cardiovascular: shortness of breath, no chest pain, no orthopnea, no palpitations, no rapid/irregular heart beat, no edema, no syncope, no lightheadedness Respiratory: shortness of breath, no cough, no congestion, no wheezing, no pain on inspiration Gastrointestinal: no abdominal pain, no nausea, no vomiting, no diarrhea, no constipation, no change in bowel habits Genitourinary Male: no dysuria, no hematuria, no flank pain, no discharge, no urinary frequency, no urinary hesitancy Musculoskeletal: no neck stiffness, no neck pain, no shooting arm pain, no arm numbness/tingling, no low back pain, no shooting leg pain Integumentary: no rash, no pruritis, no redness, no sores, no wounds Neurological: no head injury, no paralysis, no weakness, no parathesias, no numbness, no tingling, no seizures, no syncope Psychiatric: no anxiety Endocrine: no cold intolerance, no heat intolerance Hematologic/Lymphatic: no easy bruising, no easy bleeding Allergic/Immunologic: no urticaria, no wheezing Physical Examination Vital Signs Pulse Ox 87 07/27/18 11:54 General appearance: other (intubated, sedated) HEENT: Positive: Normocephaly, Mucus Membranes Moist Neck: Positive: neck supple, trachea midline Cardiac: Positive: Regular Rhythm, S1/S2 Lungs: Positive: Decreased Breath Sounds, Rhonchi, Oxygen, Ventilated Respirations Neuro: Positive: Other (intubated, sedated ) Skin: Negative: Rash, Wound Musculoskeletal: No Pain Extremities: Absent: edema Results 07/28/18 06:01 07/28/18 06:01 Cardiac Enzymes 07/27/18 Range/Units 12:59 AST 15 (5-40) units/L Coagulation 07/27/18 07/27/18 Range/Units 12:59 17:09 PT 17.0 H 16.0 H (12.2-14.9) Sec. INR 1.34 H 1.24 H (0.87-1.13) APTT 34.3 31.9 (24.2-36.6) Sec. CBC 07/27/18 07/27/18 07/28/18 Range/Units 12:59 17:59 06:01 WBC 15.8 H 12.5 H (4.5-11.0) K/mm3 RBC 3.91 3.51 L (3.65-5.03) M/mm3 Hgb 13.1 13.5 11.5 L (11.8-15.2) gm/dl Hct 40.7 42.0 36.4 (35.5-45.6) % Plt Count 242 276 275 (140-440) K/mm3 Comprehensive Metabolic Panel 07/27/18 07/28/18 Range/Units 12:59 06:01 Sodium 139 135 L (137-145) mmol/L Potassium 5.0 5.1 H (3.6-5.0) mmol/L Chloride 100.0 95.0 L (98-107) mmol/L Carbon Dioxide 21 L 21 L (22-30) mmol/L BUN 38 H 54 H (9-20) mg/dL Creatinine 1.6 H 2.6 H D (0.8-1.5) mg/dL Glucose 78 82 (75-100) mg/dL Calcium 9.9 9.3 (8.4-10.2) mg/dL AST 15 (5-40) units/L ALT 16 (7-56) units/L Alkaline Phosphatase 62 (35-129) units/L Total Protein 6.2 L (6.3-8.2) g/dL Albumin 3.6 L (3.9-5) g/dL - Imaging and Cardiology Echo: report reviewed (05/2017 showed EF 55-60%, grade 1 diastolic dysfunction, mild TR, RVSP 22mmHg. 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 Treat medically. ) EKG: report reviewed, image reviewed EKG interpretations - Telemetry EKG Rhythm: Sinus Rhythm - EKG Supraventricular dysrhythmia: atrial fibrillation Assessment and Plan Cont present cardiac management and supportive measures. Vent weaning per pulmonary. Pt underwent echo in our office yesterday AM. Will retrieve report. The patient has been seen in conjunction with Dr. Goodwin who agrees with the assessment and plan of care. - Patient Problems (1) Transient atrial fibrillation Current Visit: Yes Status: Acute (2) Acute respiratory failure Current Visit: Yes Status: Acute Qualifiers: Respiratory failure complication: hypoxia Qualified Code(s): J96.01 - Acute respiratory failure with hypoxia (3) COPD (chronic obstructive pulmonary disease) Current Visit: Yes Status: Chronic (4) Pneumonia Current Visit: Yes Status: Acute (5) Nonobstructive atherosclerosis of coronary artery Current Visit: Yes Status: Chronic (6) Hypertension Current Visit: Yes Status: Chronic Qualifiers: Hypertension type: essential hypertension (7) Hyperlipemia Current Visit: Yes Status: Chronic Qualifiers: Hyperlipidemia type: Mixed hyperlipidemia Qualified Code(s): E78.2 - Mixed hyperlipidemia (8) Peripheral vascular disease Current Visit: Yes Status: Chronic (9) CARLEE (acute kidney injury) Current Visit: Yes Status: Acute (10) Lactic acid acidosis Current Visit: Yes Status: Acute
--- NOTE | 2018-07-28 12:56 | Progress Note ---
Assessment and Plan Assessment and plan: Sepsis. Continue IV antibiotics and follow-up blood cultures. Patient with lactic acid levels in the 5 range but now trending downward. Left lower lobe pneumonia. Continue antibiotics and follow chest x-ray. Acute hypoxemic respiratory failure. Etiology secondary to above. Continue on mechanical ventilation and weaning per pulmonary. Follow-up serial chest x-ray and ABGs. Atrial fibrillation. Patient currently on IV amiodarone. Cardiology consultation pending. Check echocardiogram. Acute renal failure. Etiology likely secondary to sepsis/ATN. Check renal ultrasound. COPD exacerbation. Continue bronchodilators/nebulizers. Consider steroids if okay with pulmonary. Hypertension. Resume antihypertensive medications as needed. Hyperlipidemia. Peripheral vascular disease. The high probability of a clinically significant, sudden or life threatening deterioration of the [respiratory] system(s) required my full and direct attention, intervention and personal management. The aggregate critical care time was [32] minutes. This time is in addition to time spent performing rep orted procedures but includes the following: [x] Data Review and interpretation [x] Patient assessment and monitoring of vital signs [x] Documentation [x] Medication orders and management History Interval history: 73 YO Male with H/O COPD, PVD, HTN, HLD, Seizure Disorder, Skin Cancer presents to ED for evaluation. Pt states that he has experienced shortness and chest palpitations over the past 2 days with worsening symptoms over the past 1 day. P t acknowledges decreased exercise tolerance, as well as dyspnea on exertion. Pt was seen and evaluated by his digital product manager today and was sent to [facility] ED for further care and evaluation. Pt denies fever, chills, leg swelling, calf pain, CP with deep breathing, hemoptysis, Prolonged air/car travel, or immobility, Back Pain, Syncope, Lightheadedness, recent ill contacts, unintentional weight loss, night sweats, or bone pain. Pt seen and evaluated in ED and found to have Atrial Fib with RVR refractory to cardizem drip, but improved with Amiodarone Drip, Acute Hypoxemic Respiratory Failure, SIRS. Pt admitted to ICU. The patient later after admission had further decompensation with respiratory dis tress. Patient reportedly was satting 60-70% on a nonrebreather and had to be emergently intubated. The patient remains intubated on mechanical ventilation and to prevent drip. Patient also on amiodarone drip. Hospitalist Physical - Constitutional Vitals: Temp Pulse Resp BP Pulse Ox 99.7 F H 103 H 27 H 116/54 95 07/28/18 08:00 07/28/18 11:06 07/28/18 10:30 07/28/18 11:06 07/28/18 11:06 General appearance: Present: mild distress, other (intubated on mechanical ventilation) - EENT Eyes: Present: PERRL, EOM intact ENT: hearing intact, clear oral mucosa, dentition normal - Neck Neck: Present: supple, normal ROM - Respiratory Respiratory effort: normal Respiratory: bilateral: diminished, rales, rhonchi - Cardiovascular Rhythm: regular Heart Sounds: Present: S1 & S2. Absent: gallop, rub - Extremities Extremities: no ischemia, No edema, Full ROM - Abdominal General gastrointestinal: soft, non-tender, non-distended, normal bowel sounds - Integumentary Integumentary: Present: clear, warm, dry - Neurologic Neurologic: CNII-XII intact, moves all extremities Results - Labs CBC & Chem 7: 07/28/18 06:01 07/28/18 06:01 Labs: Laboratory Last Values WBC 12.5 K/mm3 (4.5-11.0) H 07/28/18 06:01 RBC 3.51 M/mm3 (3.65-5.03) L 07/28/18 06:01 Hgb 11.5 gm/dl (11.8-15.2) L 07/28/18 06:01 Hct 36.4 % (35.5-45.6) 07/28/18 06:01 MCV 104 fl (84-94) H 07/28/18 06:01 MCH 33 pg (28-32) H 07/28/18 06:01 MCHC 32 % (32-34) 07/28/18 06:01 RDW 16.6 % (13.2-15.2) H 07/28/18 06:01 Plt Count 275 K/mm3 (140-440) 07/28/18 06:01 Add Manual Diff Complete 07/28/18 06:01 Total Counted 100 07/28/18 06:01 Seg Neutrophils % Industrial Renderer 07/28/18 06:01 Seg Neuts % (Manual) 47.0 % (40.0-70.0) 07/28/18 06:01 Band Neutrophils % 27.0 % 07/28/18 06:01 Lymphocytes % (Manual) 16.0 % (13.4-35.0) 07/28/18 06:01 Reactive Lymphs % (Man) 0 % 07/28/18 06:01 Monocytes % (Manual) 1.0 % (0.0-7.3) 07/28/18 06:01 Eosinophils % (Manual) 0 % (0.0-4.3) 07/28/18 06:01 Basophils % (Manual) 0 % (0.0-1.8) 07/28/18 06:01 Metamyelocytes % 1.0 % 07/28/18 06:01 Myelocytes % 8.0 % 07/28/18 06:01 Promyelocytes % 0 % 07/28/18 06:01 Blast Cells % 0 % 07/28/18 06:01 Nucleated RBC % Not Reportable 07/28/18 06:01 Seg Neutrophils # Man 5.9 K/mm3 (1.8-7.7) 07/28/18 06:01 Band Neutrophils # 3.4 K/mm3 07/28/18 06:01 Lymphocytes # (Manual) 2.0 K/mm3 (1.2-5.4) 07/28/18 06:01 Abs React Lymphs (Man) 0.0 K/mm3 07/28/18 06:01 Monocytes # (Manual) 0.1 K/mm3 (0.0-0.8) 07/28/18 06:01 Eosinophils # (Manual) 0.0 K/mm3 (0.0-0.4) 07/28/18 06:01 Basophils # (Manual) 0.0 K/mm3 (0.0-0.1) 07/28/18 06:01 Metamyelocytes # 0.1 K/mm3 07/28/18 06:01 Myelocytes # 1.0 K/mm3 07/28/18 06:01 Promyelocytes # 0.0 K/mm3 07/28/18 06:01 Blast Cells # 0.0 K/mm3 07/28/18 06:01 Pathologist Review 07/28/18 06:01 WBC Morphology Not Reportable 07/28/18 06:01 Hypersegmented Neuts Not Reportable 07/28/18 06:01 Hyposegmented Neuts Not Reportable 07/28/18 06:01 Hypogranular Neuts Not Reportable 07/28/18 06:01 Smudge Cells Not Reportable 07/28/18 06:01 Toxic Granulation Not Reportable 07/28/18 06:01 Toxic Vacuolation Not Reportable 07/28/18 06:01 Dohle Bodies 1+ 07/28/18 06:01 Pelger-Huet Anomaly Not Reportable 07/28/18 06:01 Janiya Rods Not Reportable 07/28/18 06:01 Platelet Estimate Consistent w auto 07/28/18 06:01 Clumped Platelets Not Reportable 07/28/18 06:01 Plt Clumps, EDTA Not Reportable 07/28/18 06:01 Large Platelets Not Reportable 07/28/18 06:01 Giant Platelets Few 07/28/18 06:01 Platelet Satelliting Not Reportable 07/28/18 06:01 Plt Morphology Comment Not Reportable 07/28/18 06:01 RBC Morphology Not Reportable 07/28/18 06:01 Dimorphic RBCs Not Reportable 07/28/18 06:01 Polychromasia Not Reportable 07/28/18 06:01 Hypochromasia Not Reportable 07/28/18 06:01 Poikilocytosis Not Reportable 07/28/18 06:01 Anisocytosis 1+ 07/28/18 06:01 Microcytosis Not Reportable 07/28/18 06:01 Macrocytosis Not Reportable 07/28/18 06:01 Spherocytes Not Reportable 07/28/18 06:01 Pappenheimer Bodies Not Reportable 07/28/18 06:01 Sickle Cells Not Reportable 07/28/18 06:01 Target Cells Not Reportable 07/28/18 06:01 Tear Drop Cells Not Reportable 07/28/18 06:01 Ovalocytes Not Reportable 07/28/18 06:01 Helmet Cells Not Reportable 07/28/18 06:01 Lr-[place] Bodies Not Reportable 07/28/18 06:01 [place] Rings Not Reportable 07/28/18 06:01 [place] Cells Not Reportable 07/28/18 06:01 Bite Cells Not Reportable 07/28/18 06:01 Crenated Cell Not Reportable 07/28/18 06:01 Elliptocytes Not Reportable 07/28/18 06:01 Acanthocytes (Spur) Not Reportable 07/28/18 06:01 Rouleaux Not Reportable 07/28/18 06:01 Hemoglobin C Crystals Not Reportable 07/28/18 06:01 Schistocytes Not Reportable 07/28/18 06:01 Malaria parasites Not Reportable 07/28/18 06:01 Jigar Bodies Not Reportable 07/28/18 06:01 Hem Pathologist Commnt Sent to pathology 07/28/18 06:01 PT 16.0 Sec. (12.2-14.9) H 07/27/18 17:09 INR 1.24 (0.87-1.13) H 07/27/18 17:09 APTT 31.9 Sec. (24.2-36.6) 07/27/18 17:09 D-Dimer 798.17 ng/mlDDU (0-234) H 07/27/18 15:52 Heparin Anti-Xa Level 0.14 U.I./ml (0.3-0.7) L 07/28/18 07:19 POC ABG pH 7.266 (7.35-7.45) L 07/28/18 11:06 POC ABG pCO2 49.7 (35-45) H 07/28/18 11:06 POC ABG pO2 74 (80-105) L 07/28/18 11:06 POC ABG HCO3 22.6 07/28/18 11:06 POC ABG Total CO2 24 07/28/18 11:06 POC ABG O2 Sat 92 07/28/18 11:06 POC ABG Base Excess -4 07/28/18 11:06 FiO2 80 % 07/28/18 11:06 Sodium 135 mmol/L (137-145) L 07/28/18 06:01 Potassium 5.1 mmol/L (3.6-5.0) H 07/28/18 06:01 Chloride 95.0 mmol/L (98-107) L 07/28/18 06:01 Carbon Dioxide 21 mmol/L (22-30) L 07/28/18 06:01 Anion Gap 24 mmol/L 07/28/18 06:01 BUN 54 mg/dL (9-20) H 07/28/18 06:01 Creatinine 2.6 mg/dL (0.8-1.5) H D 07/28/18 06:01 Estimated GFR 24 ml/min 07/28/18 06:01 BUN/Creatinine Ratio 21 % 07/28/18 06:01 Glucose 82 mg/dL (75-100) 07/28/18 06:01 Lactic Acid 3.90 mmol/L (0.7-2.0) H* 07/28/18 09:20 Calcium 9.3 mg/dL (8.4-10.2) 07/28/18 06:01 Magnesium 1.80 mg/dL (1.7-2.3) 07/27/18 15:52 Total Bilirubin 1.30 mg/dL (0.1-1.2) H 07/27/18 12:59 AST 15 units/L (5-40) 07/27/18 12:59 ALT 16 units/L (7-56) 07/27/18 12:59 Alkaline Phosphatase 62 units/L (35-129) 07/27/18 12:59 Troponin T < 0.010 ng/mL (0.00-0.029) 07/27/18 12:59 NT-Pro-B Natriuret Pep 3913 pg/mL (0-900) H 07/27/18 12:59 Total Protein 6.2 g/dL (6.3-8.2) L 07/27/18 12:59 Albumin 3.6 g/dL (3.9-5) L 07/27/18 12:59 Albumin/Globulin Ratio 1.4 % 07/27/18 12:59 TSH 1.180 mlU/mL (0.270-4.200) 07/27/18 15:52 Free T4 1.28 ng/dL (0.76-1.46) 07/27/18 15:52 Nutrition/Malnutrition Assess - Dietary Evaluation Nutrition/Malnutrition Findings: Nutrition Notes Start: 07/28/18 10:54 Freq: Status: Active Protocol: Document 07/28/18 10:54 TW (Rec: 07/28/18 11:11 TW [id number]) Co-Sign 07/28/18 10:54 LP Nutrition Notes Need for Assessment generated from: MD Order Initial or Follow up Assessment Current Diagnoses Acute Kidney Injury COPD Sepsis Hypertension Heart Failure Respiratory Failure Other Pertinent Diagnosis Hx of Skin Cancer Current Diet NPO Labs/Tests Na: 135 K: 5.1 BUN: 54 Cr: 2.6 Medications Propofol Height 5 ft 8 in Weight 84.368 kg [place] Body Weight (lbs) 154.0 BMI 28.3 Subjective/Other Information MD consult for evaluation of nutritional intake. Pt on vent . Per pt friend in room, pt ate at [facility] 07/26. Burn Absent Trauma Absent #1 Nutrition Diagnoses Inadequate oral intake Etiology Mechanical Ventilation As Evidenced by Signs and Symptoms NPO Is patient on ventilator? Yes Is Patient Ambulatory and/or Out of Bed No [facility] 1870.008 Calculation Used for Recommendations [facility] Additional Notes Fluid needs: 1ml/kcal Protein needs (1.2-2 kg/g) 102 -169 g/day Nutrition Intervention Change Diet Order: Advance when medically feasible. Goal #1 Diet Advancement or TF Anticipated Discharge Needs: Unable to determine at this time Follow-Up By: 08/01/18 Additional Comments F/U for POC
[2018-07-28] MEDS: NACL 0.9% 1000 ML 1,000 ML IV SCH ×2 (13:30→21:52)
[2018-07-28] MEDS: ZITHROMAX 500 MG in NACL 0.9% 250ML 250 ML IV SCH (13:38)
[2018-07-28] MEDS ORDERED: PANCREAZE DR 10,500 UNIT FEEDTUBE PRN (13:57)
[2018-07-28] MEDS ORDERED: SODIUM BICARBONATE FEEDTUBE PRN (13:57)
[2018-07-28] MEDS ORDERED: SIMPLE SYRUP FEEDTUBE PRN ×2 (13:57)
--- NOTE | 2018-07-28 14:11 | Consultation ---
History of Present Illness - Reason for Consult Consult date: 07/28/18 acute renal failure, hyperkalemia - History of Present Illness The patient is a 73 YO male with history significant for HTN, HLD, PVD, COPD on O2 at nighttime, nonobstructive CAD and ?DM who presented from the Director Digital [employer] office with c/o extreme SOB. Pt was noted to be in AFib with RVR and was initiated on IV Amio and Heparin drip. He developed respiratory failure overnight and was intubated. He was converted to NSR overnight. BP is low. Creatinine increased from 1.6 to 2.6 today. Patient was not able to provide any history. Past History Past Medical History: CAD, COPD, hypertension, hyperlipidemia, PVD Past Surgical History: Other (Right leg surgery) Social history: , lives with family. denies: smoking, alcohol abuse, prescription drug abuse Family history: hypertension Medications and Allergies Allergies Allergy/AdvReac Type Severity Reaction Status Date / Time No Known Allergies Allergy Verified 12/12/13 06:46 Home Medications Medication Instructions Recorded Confirmed Last Taken Type Pravastatin Sodium 40 mg PO DAILY 12/12/13 07/27/18 07/27/18 History Clopidogrel [Plavix] 75 mg PO DAILY #30 tablet 04/03/15 07/27/18 07/27/18 Rx amLODIPine [Norvasc] 10 mg PO DAILY #30 tablet 04/03/15 07/27/18 07/27/18 Rx Fluticasone/Salmeterol [Advair 1 puff IH BID 12/31/15 07/27/18 07/27/18 History Diskus 250-50 mcg] ALBUTEROL Inhaler (OR & NICU) 2 puff IH QID PRN 07/27/18 07/27/18 Unknown History [Proair] Aspirin [Aspirin BABY CHEW TAB] 81 mg PO DAILY 07/27/18 07/27/18 07/27/18 History Cyanocobalamin (Vitamin B-12) 2,500 mcg PO DAILY 07/27/18 07/27/18 07/27/18 History [Vitamin B12] Adams-3S/Dha/Epa/Fish Oil/D3 [Fish 1 each PO DAILY 07/27/18 07/27/18 07/27/18 History Yar-Bcgnn-5-Vit D Softgel] Active Meds: Active Medications Acetaminophen (Tylenol) 650 mg IL Q4H PRN PRN Reason: Fever >101 Last Admin: 07/28/18 05:29 Dose: 650 mg Documented by: Amlodipine Besylate (Norvasc) 10 mg PO DAILY [facility] Last Admin: 07/28/18 11:21 Dose: Not Given Documented by: Lipase/Protease/Amylase (Sergo Mccarthy 10,500 Unit) 1 each FEEDTUBE PRN PRN PRN Reason: For Clogged Feeding Tube Arformoterol Tartrate (Brovana Nebu) 15 mcg IH Q12HRT [facility] Last Admin: 07/28/18 08:22 Dose: 15 mcg Documented by: Aspirin (Baby Aspirin) 81 mg PO DAILY [facility] Last Admin: 07/28/18 11:21 Dose: Not Given Documented by: Budesonide (Pulmicort) 0.5 mg IH Q12HRT [facility] Last Admin: 07/28/18 08:23 Dose: 0.5 mg Documented by: Clopidogrel Bisulfate (Plavix) 75 mg PO DAILY [facility] Last Admin: 07/28/18 11:22 Dose: Not Given Documented by: Cyanocobalamin (Vitamin B-12) 2,500 mcg PO QDAY [facility] Last Admin: 07/28/18 11:22 Dose: Not Given Documented by: Diltiazem HCl (Cardizem) 60 mg PO Q6HR [facility] Last Admin: 07/28/18 11:22 Dose: Not Given Documented by: Famotidine (Pepcid) 20 mg IV DAILY [facility] Last Admin: 07/28/18 12:10 Dose: 20 mg Documented by: Hydrophilic Ointment (Vaseline Lip Therapy) 1 applic TP Q2HR PRN PRN Reason: Dry Lips Amiodarone HCl 900 mg/ (Dextrose) 500 mls @ 33.33 mls/hr IV DIRECT IGNACIO; Protocol Last Titration: 07/28/18 07:20 Dose: 0.5 mg/min, 16.67 mls/hr Documented by: Ceftriaxone Sodium (Rocephin/Ns 2 Gm/100 Ml) 2 gm in 100 mls @ 200 mls/hr IV Q24H [facility]; Protocol Last Infusion: 07/28/18 00:21 Dose: Infused Documented by: Heparin Sodium/Sodium Chloride (Heparin/ 0.45% Nacl-25,000 Unit/500 Ml) 25,000 unit in 500 mls @ 24 mls/hr IV TITR IGNACIO; Protocol Last Titration: 07/28/18 09:10 Dose: 1,450 units/hr, 29 mls/hr Documented by: Propofol (Diprivan 10 Mg/Ml) 1,000 mg in 100 mls @ 2.531 mls/hr IV TITR IGNACIO; Protocol Last Admin: 07/28/18 04:45 Dose: 15 mcg/kg/min, 7.593 mls/hr Documented by: Azithromycin 500 mg/ Sodium (Chloride) 250 mls @ 250 mls/hr IV Q24HR IGNACIO Last Admin: 07/28/18 13:38 Dose: 250 mls/hr Documented by: Sodium Chloride (Nacl 0.9% 1000 Ml) 1,000 mls @ 75 mls/hr IV DIRECT IGNACIO Stop: 07/30/18 02:19 Last Admin: 07/28/18 13:30 Dose: 75 mls/hr Documented by: Methylprednisolone Sodium Succinate (Solu-Medrol) 40 mg IV Q8HR IGNACIO Multi-Ingred Cream/Lotion/Oil/Oint (Artificial Tears Ophth Oint) 1 applic OU Q4HR PRN PRN Reason: Dry Eye(s) Pravastatin Sodium (Pravachol) 40 mg PO DAILY [facility] Last Admin: 07/28/18 11:22 Dose: Not Given Documented by: Simple Syrup (Simple Syrup) 15 ml FEEDTUBE PRN PRN PRN Reason: Hypoglycemia Simple Syrup (Simple Syrup) 30 ml FEEDTUBE PRN PRN PRN Reason: Hypoglycemia Sodium Bicarbonate (Sodium Bicarbonate) 325 mg FEEDTUBE PRN PRN PRN Reason: For Clogged Feeding Tube Sodium Chloride (Sodium Chloride Flush Syringe 10 Ml) 10 ml IV BID [facility] Last Admin: 07/28/18 12:10 Dose: 10 ml Documented by: Sodium Chloride (Sodium Chloride Flush Syringe 10 Ml) 10 ml IV PRN PRN PRN Reason: LINE FLUSH Review of Systems ROS unobtainable: due to endotracheal tube Exam - Vital Signs Vital signs: Vital Signs Pulse Ox 87 07/27/18 11:54 - General Appearance General appearance: well-developed, appears stated age, intubated, other (on vent) EENT: ATNC, PERRL Neck: Present: neck supple, trachea midline Respiratory: Clear to Ascultation Heart: regular, tachycardia, S1S2, no murmurs Gastrointestinal: Present: normoactive bowel sounds. Absent: tenderness, distended Integumentary: no rash, warm and dry Neurologic: obtunded Musculoskeletal: Present: other (no edema) Results - Lab Results 07/29/18 04:21 07/29/18 04:21 Most recent lab results Calcium 9.3 mg/dL (8.4-10.2) 07/28/18 06:01 Magnesium 1.80 mg/dL (1.7-2.3) 07/27/18 15:52 - Image Kidney/bladder ultrasound: pending Assessment and Plan 1. Acute kidney injury: Likely Vasomotor / hemodynamic CARLEE in the setting of A.fib with RVR. Continue IV fluids. Urine studies and Renal US. Renal prognosis is guarded. 2. Hyperkalemia: Kayexalate ordered. Monitor. 3. A.fib with RVR. 4. Respiratory failure: On vent. 5. Sepsis. D/w his at the bedside.
[2018-07-28] MEDS: SOLU-Medrol IV SCH ×2 (15:00→21:53)
[2018-07-28] MEDS: HEPARIN/ 0.45% NACL-25,000 UNIT/500 ML 25,000 UNIT/500 ML BAG IV SCH (16:35)
--- NOTE | 2018-07-28 17:11 | Ultrasound Report ---
FINAL REPORT EXAM: US RENAL BILAT HISTORY: ARF TECHNIQUE: Ultrasound examination of the kidneys PRIORS: None. FINDINGS: Visualized right kidney: 11.8 x 6.9 x 6.9 cm. Visualized left kidney: 12.2 x 5.4 x 6.6 cm. Renal cortical thickness is 13 mm on the right and 17 mm on the left. Technologist reports suboptimal imaging due to patient position, body habitus, and difficulty positioning patient due to ventilator. No definite renal parenchymal abnormality noted after accounting for technical difficulties. Focal lesion: None visible Calculus: None visible Hydronephrosis: None Perinephric fluid: None Urinary bladder: No evidence of focal abnormality in visible portion. IMPRESSION: No definite sonographic evidence of renal pathology
[2018-07-28] MEDS: ROCEPHIN/NS 2 GM/100 ML 2 GM/100 ML BAG IV SCH (17:39)
--- NOTE | 2018-07-28 17:43 | Consultation ---
PULMONARY CRITICAL CARE NOTE CONSULTING PHYSICIAN: Dr. Birmingham. REASON FOR CONSULTATION: 1. Atrial fibrillation with rapid ventricular response. 2. Acute hypoxemic respiratory failure, on mechanical ventilatory support. 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 It had been going on for a couple of days. He apparently received an echocardiogram at the pulp bleacher's office and was told to come into the Emergency Room. Results are unclear. He had denied fevers, denied chills, denied new onset leg swelling or pain. He has a history of prior deep venous thrombosis, but no similar tongue symptoms. He denied any pleuritic or other chest pain. He denied hemoptysis. He denied upper respiratory tract type symptoms. He denied any significant immobility. In the Emergency Room, he was found to be in atrial fibrillation with a rapid ventricular response and ICU admission was requested and granted. Late yesterday evening, the Emergency Room physician was called up to the intensive care unit due to desaturations on 100% nonrebreather mask. He required rapid sequence intubation at the bedside and when I stopped by to see him today, he remained on mechanical ventilator. Assist control mode of ventilation, tidal volumes 500 mL, 6 on the PEEP and rate of 30. He was not breathing over the set rate. He did not have any history of vomiting or overt aspiration. The above is as much of the history of presentation as I have. PAST MEDICAL HISTORY: Again, significant for a diagnosis of chronic obstructive lung disease, hypertension, peripheral vascular disease, history of deep venous thrombosis, history of arthritis, history of skin cancer. PAST SURGICAL HISTORY: He has had bypass surgery to the right lower extremity. MEDICATIONS: He was on at the time I stopped by to see him were reviewed. Pertinent medications included the following: He was on amiodarone drip going at 0.5 mg per minute. He was on amlodipine 10 mg p.o. daily. All p.o. meds were via the feeding tube. Brovana 15 mcg nebulized q. 12 hours, aspirin 81 mg p.o. daily, Pulmicort 0.5 mg inhaled q. 12 hours. Rocephin 2 g IV daily, Plavix 75 mg p.o. daily, vitamin B12 2.5 mg p.o. daily, diltiazem 60 mg p.o. q. 6 hours, Pepcid 20 mg IV daily. IV heparin drip was going at 1200 units per hour titrated to the factor Xa level. Artificial tears to each eye p.r.n., pravastatin 40 mg p.o. daily, propofol drip was going at 5 mcg per kilogram per minute and half NS at 20 mL per hour TKVO. ALLERGIES: No known drug allergies. DIET: Well-built gentleman. Acute weight loss or gain history is unknown. FAMILY AND SOCIAL HISTORY: Apparently he lives in the community. He is and lives with his family. He had denied tobacco, alcohol, or illicit drug abuse or use at presentation. There is a family history of hypertension. REVIEW OF SYSTEMS: Difficult to obtain secondary to his medical and mental condition. He is able to shake his head, yes or no. Denied gross hematochezia or melena. Denied gross hematuria or dysuria. No hematemesis. No hemoptysis. He had shortness of breath. He had palpitations. He had dyspnea on exertion. Denied any new rash on his body. Denied polydipsia. Denied polyuria. Denied heat or cold intolerance. No new swelling. No new focal weakness. No new seizures. Complete 13-system review of systems is obtained. Pertinent positives and/or negatives as in the body of history above, otherwise they are noncontributory. PHYSICAL EXAMINATION: VITAL SIGNS: At presentation, he was afebrile, temperature 98 degrees Fahrenheit with a pulse of 163, respiratory rate of 35, blood pressure of 111/89, O2 sats were 81% at that time, inspired oxygen concentration was not recorded. Early this morning, his mean arterial pressure has dropped below 60. He also had a T-max of 101 degrees Fahrenheit. GENERAL: He is an elderly looking male, normocephalic, atraumatic, on the mechanical ventilator without significant patient-ventilator asynchrony. HEAD, EYES, EARS, NOSE, AND THROAT: He is anicteric. No conjunctival erythema. No gross jugular venous distention, no thyromegaly. Endotracheal tube is taped to the lips around 23-24 cm. Oropharynx is moist. LUNGS: Auscultation of both lung brooks, bibasilar inspiratory rales. No wheezing. CARDIOVASCULAR: Heart sounds 1 and 2 are heard. Irregular in rate and rhythm at the time of my evaluation without rubs or murmurs. ABDOMEN: Soft, full, bowel sounds are positive, nontender. No palpable hepatosplenomegaly. EXTREMITIES: Without overt digital clubbing or cyanosis and no pedal edema. Dorsalis pedis pulses are weakly palpable bilaterally. NEUROLOGIC: Pupils are equal, round, about 2-3 mm, reactive to light. Extraocular muscle movements are intact. He moves all 4 extremities spontaneously. SKIN: Poor turgor without overt cellulitis or rash and no pedal edema again. Neurologically as mentioned above. LABORATORY DATA: From my review are as follows: Admission white cell count 15,800 with a hemoglobin of 13.1, hematocrit of 40.7, platelet count of 242. No band forms are reported. INR was 1.34 at presentation. D-dimer was elevated at 798. Arterial blood gas at presentation showed a pH of 7.34, pCO2 of 43, pO2 of 36 that was on 4 liters nasal cannula. Serum sodium was 139, potassium 5.0, chloride 100, bicarbonate 21, BUN 38, creatinine 1.6, and glucose was 78. Lactic acid level was 5.2 at presentation. Total bilirubin 1.3. Otherwise, liver function tests essentially within normal limits. TSH and free T4 were within normal limits. Most recent blood gas shows a pH of 7.27, this is increased from 7.19 earlier this morning. PCO2 is at 50, this is down from 60 earlier this morning. PO2 is 74 on 80% FiO2 and the above-mentioned ventilator settings. Lactic acid level is down to 3.9. Blood cultures 4 sets have been drawn, no growth to date. A 2D echocardiogram is pending. Chest x-ray has been reviewed. Presentation chest x-ray essentially shows borderline cardiomegaly, likely small bilateral pleural effusions, left greater than right, increased interstitial markings with cephalization suggesting moderate to severe pulmonary edema. I cannot rule out an element of chronic lung disease. Most recent chest x-ray, endotracheal tube is in place, tip below the clavicular heads. It is a lordotic film. There appears to be some improvement in the interstitial edema pattern, but still a chronic looking interstitial markings are present. A CT angio has not been done. A V/Q scan was ordered, but cannot be done with him on the mechanical ventilator at this time. BUN is now 54 and creatinine is 2.6. ASSESSMENT: 1. Acute hypoxemic respiratory failure, on mechanical ventilatory support. 2. Atrial fibrillation with rapid ventricular response. 3. Possible congestive heart failure with an acute exacerbation. Certainly a cardiomyopathy. 4. 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 5. Elevated D-dimer. 6. Leukocytosis. 7. Sepsis syndrome with hypotension and fevers this morning. 8. Again, atrial fibrillation with rapid ventricular response. 9. Chronic obstructive lung disease with an acute exacerbation. 10. Hypertension. 11. Peripheral vascular disease. 12. Mixed acidosis, respiratory and metabolic. 13. Acute kidney injury. 14. Lactic acidosis. 15. Elevated BNP level of 3913. 16. History of hypertension. 17. History of arthritis. PLAN: We will keep him on full mechanical ventilatory support acutely. I will keep him on high minute ventilation. We will keep the rate at 30. I will, however, reduce the tidal volumes to 450. We will continue bronchodilators, both long and short acting bronchodilators. Oxygen will be weaned to keep sats greater than or equal to about 90%. Aspiration precautions will be maintained. Ventilator-associated pneumonia bundle has been instituted. We will begin daily spontaneous breathing trials as soon as possible. We will continue daily sedation assessment trials. We will titrate sedatives to RASS scale of 0 to -1. We have begun titrating down his propofol to improve the blood pressures. I do feel they were responsible for some of the hypotension. I do feel overall that clinically, he is euvolemic or dry and despite possible CHF history and the pulmonary edema in the septic state, we will continue with gentle hydration. We will continue IV normal saline at about 75 mL an hour just for about a couple of more liters while keeping an eye on the lactic acid levels and adjusting as necessary. We will continue empiric antibiotic therapy. He is on Rocephin. We will, however, go ahead and add azithromycin for community-acquired pneumonia treatment. Respiratory cultures will be sent and addressed as necessary. I will defer to Cardiology for further acute coronary syndrome workup. Bilateral lower extremity Dopplers will be ordered pulse or minus V/Q scan and once he is off the ventilator. He is on full anticoagulation. He is appropriately on GI prophylaxis. I will increase to double dose Pepcid while on the full anticoagulation. Flu and pneumonia vaccination will be addressed per protocol. The acute kidney injury is noted. Await on the results of the 2D echocardiogram. A Nephrology evaluation will be requested. Thank you very much for the consult, Dr. Birmingham. We will follow along. We will make further recommendations as picture progresses/becomes clearer. He is critically ill, on life-sustaining interventions including mechanical ventilatory support at high risk for deterioration in the cardiovascular and respiratory systems including the risk of . At this time, I spent about 40-45 minutes of critical care time without overlap and excluding any procedural time that may be necessary. JOB# [id number] SHERON/JIAN MORGAN
--- NOTE | 2018-07-28 18:44 | XRay Report ---
FINAL REPORT EXAM: XR ABDOMEN 1V AP HISTORY: gastric tube placement prior to feeding TECHNIQUE: KUB was performed Comparison: Chest x-ray earlier same day FINDINGS: The nasogastric tube tip projects at the GE junction. The side port projects approximately 8 centimet ers proximal to the GE junction. There is a layering left pleural effusion and bilateral fine reticular interface still Power infiltr ates. IMPRESSION: Nasogastric tube needs to be advanced 10 centimeters to be completely within the stomach including t he side port. Layering left pleural effusion with basal consolidation. Bilateral incompletely imaged fine reticular interstitial infiltrates or fibrosis.
[2018-07-28 21:24] LABS: Calcium 9.5 mg/dL (8.4-10.2)
--- NOTE | 2018-07-28 21:46 | XRay Report ---
FINAL REPORT PROCEDURE: XR ABDOMEN 1V AP TECHNIQUE: AP supine portable radiograph of the abdomen was obtained at 07/28/2018 20:58 (EST) . HISTORY: Confirm placement of OG tube COMPARISON: No prior studies are available for comparison. FINDINGS: Bowel gas pattern: Nonobstructive. Masses or calcifications: None. Bony structures: Normal. Other: There is an NG tube in the stomach.. There is a small left pleural effusion. IMPRESSION: No acute abnormality. NG tube is in the stomach.
[2018-07-28] MEDS ORDERED: KIONEX PO ONE (22:00)
[2018-07-29] MEDS: CARDIZEM PO SCH ×5 (00:03→23:32)
[2018-07-29] MEDS: DIPRIVAN 10 MG/ML 1,000 MG/100 ML BOTTLE IV SCH ×2 (03:34→15:33)
[2018-07-29 04:36] LABS: Hemoglobin 10.8 gm/dl (11.8-15.2); Mean Corpuscular HGB Conc 33 % (32-34); Mean Corpuscular Volume 103 fl (84-94); Platelet Count 260 K/mm3 (140-440); Red Blood Count 3.21 M/mm3 (3.65-5.03); Red Cell Distribution Width 16.4 % (13.2-15.2)
[2018-07-29 04:50] LABS: Calcium 9.9 mg/dL (8.4-10.2)
[2018-07-29] MEDS: SOLU-Medrol IV SCH ×3 (05:40→21:04)
[2018-07-29] MEDS ORDERED: VANCOMYCIN 1,250 MG in NACL 0.9% 250ML 250 ML IV SCH (06:00)
[2018-07-29] MEDS: HumaLOG SUB-Q SCH ×5 (06:23→21:42)
[2018-07-29 06:40] LABS: Basophils % (Manual) 0 % (0.0-1.8); Eosinophils % (Manual) 0 % (0.0-4.3); Myelocytes # (Manual) 0.2 K/mm3; Total Cells Counted 100
[2018-07-29 06:41] LABS: Anisocytosis 1+; Dohle Bodies 1+; Hypochromasia Few
--- NOTE | 2018-07-29 08:10 | XRay Report ---
Single view chest: Compared to 07/28/18. History: Followup of respiratory failure. Findings: Borderline cardiomegaly. Stable support system. Bilateral airspace opacities be more pronounced on the left side with left pleural effusion. No significant interval change. Impression: No significant interval change.
[2018-07-29] MEDS: PULMICORT IH SCH ×2 (08:15→20:07)
[2018-07-29] MEDS: BROVANA NEBU IH SCH ×2 (08:15→20:07)
[2018-07-29] MEDS ORDERED: VANCOMYCIN 1,250 MG in NACL 0.9% 250ML 250 ML IV ONE (10:00)
[2018-07-29] MEDS: PEPCID IV SCH (10:04)
[2018-07-29] MEDS: PRAVACHOL PO SCH (10:04)
[2018-07-29] MEDS: VITAMIN B-12 PO SCH (10:04)
[2018-07-29] MEDS: BABY ASPIRIN PO SCH (10:04)
[2018-07-29] MEDS: NORVASC PO SCH (10:36)
[2018-07-29] MEDS: SODIUM CHLORIDE FLUSH SYRINGE 10 ML IV SCH ×2 (10:36→21:04)
[2018-07-29] MEDS: PLAVIX PO SCH (10:37)
[2018-07-29] MEDS: ZITHROMAX 500 MG in NACL 0.9% 250ML 250 ML IV SCH (10:37)
[2018-07-29 10:38] LABS: Bacteria,Urine 1+ /HPF (Negative); Bilirubin,Urine NEG (Negative); Blood,Urine MOD (Negative); Color,Urine Yellow (Yellow); Mucus,Urine FEW /HPF; Urobilinogen,Urine < 2.0 mg/dL (<2.0)
[2018-07-29 10:45] LABS: Creatinine,Urine 72.3 mg/dL (0.1-20.0)
[2018-07-29] MEDS: CORDARONE 900 MG in D5W 482 ML IV SCH (10:47)
--- NOTE | 2018-07-29 12:19 | Progress Note ---
Assessment and Plan Assessment and plan: Sepsis. Continue IV antibiotics and follow-up blood cultures. Patient with lactic acid levels in the 5 range but now trending downward. Left lower lobe pneumonia. Continue antibiotics and follow chest x-ray. Acute hypoxemic respiratory failure. Etiology secondary to above. Continue on mechanical ventilation and weaning per pulmonary. Follow-up serial chest x-ray and ABGs. Continue sedation holidays --patient currently with Diprivan Atrial fibrillation. Patient currently on IV amiodarone and IV heparin. Cardiology following. Continue po diltiazem. Wean amiodarone drip. Check echocardiogram. Acute renal failure. Etiology likely secondary to sepsis/ATN. Renal ultrasound unremarkable. COPD exacerbation. Continue bronchodilators/nebulizers. IV steroids. Hypertension. Resume antihypertensive medications as needed. Hyperlipidemia. Peripheral vascular disease. The high probability of a clinically significant, sudden or life threatening deterioration of the [respiratory] system(s) required my full and direct attention, intervention and personal management. The aggregate critical care time was [31] minutes. This time is in addition to time spent performing reported procedures but includes the following: [x] Data Review and interpretation [x] Patient assessment and monitoring of vital signs [x] Documentation [x] Medication orders and management History Interval history: 73 YO Male with H/O COPD, PVD, HTN, HLD, Seizure Disorder, Skin Cancer presents to ED for evaluation. Pt states that he has experienced shortness and chest palpitations over the past 2 days with worsening symptoms over the past 1 day. Pt acknowledges decreased exercise tolerance, as well as dyspnea on exertion. 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 Pt denies fever, chills, leg swelling, calf pain, CP with deep breathing, hemoptysis, Prolonged air/car travel, or immobility, Back Pain, Syncope, Lightheadedness, recent ill contacts, unintentional weight loss, night sweats, or bone pain. Pt seen and evaluated in ED and found to have Atrial Fib with RVR refractory to cardizem drip, but improved with Amiodarone Drip, Acute Hypoxemic Respiratory Failure, SIRS. Pt admitted to ICU. The patient later after admission had further decompensation with respiratory distress. Patient reportedly was satting 60-70% on a nonrebreather and had to be emergently intubated. The patient remains intubated on mechanical ventilation and to prevent drip. Patient also on amiodarone drip. Hospitalist Physical - Constitutional Vitals: Temp Pulse Resp BP Pulse Ox 98.7 F 111 H 30 H 118/76 96 07/29/18 08:00 07/29/18 11:54 07/29/18 11:00 07/29/18 11:54 07/29/18 11:54 General appearance: Present: mild distress, other (intubated on mechanical ventilation) - EENT Eyes: Present: PERRL, EOM intact ENT: hearing intact, clear oral mucosa, dentition normal - Neck Neck: Present: supple, normal ROM - Respiratory Respiratory effort: normal Respiratory: bilateral: CTA - Cardiovascular Rhythm: regular Heart Sounds: Present: S1 & S2. Absent: gallop, rub - Extremities Extremities: no ischemia, No edema, Full ROM - Abdominal General gastrointestinal: soft, non-tender, non-distended, normal bowel sounds - Integumentary Integumentary: Present: clear, warm, dry - Neurologic Neurologic: CNII-XII intact, moves all extremities Results - Labs CBC & Chem 7: 07/29/18 04:21 07/29/18 04:21 Labs: Laboratory Last Values WBC 9.0 K/mm3 (4.5-11.0) 07/29/18 04:21 RBC 3.21 M/mm3 (3.65-5.03) L 07/29/18 04:21 Hgb 10.8 gm/dl (11.8-15.2) L 07/29/18 04:21 Hct 33.0 % (35.5-45.6) L 07/29/18 04:21 MCV 103 fl (84-94) H 07/29/18 04:21 MCH 34 pg (28-32) H 07/29/18 04:21 MCHC 33 % (32-34) 07/29/18 04:21 RDW 16.4 % (13.2-15.2) H 07/29/18 04:21 Plt Count 260 K/mm3 (140-440) 07/29/18 04:21 Add Manual Diff Complete 07/29/18 04:21 Total Counted 100 07/29/18 04:21 Seg Neutrophils % Repair Tech 07/29/18 04:21 Seg Neuts % (Manual) 59.0 % (40.0-70.0) 07/29/18 04:21 Band Neutrophils % 22.0 % 07/29/18 04:21 Lymphocytes % (Manual) 11.0 % (13.4-35.0) L 07/29/18 04:21 Reactive Lymphs % (Man) 0 % 07/29/18 04:21 Monocytes % (Manual) 6.0 % (0.0-7.3) 07/29/18 04:21 Eosinophils % (Manual) 0 % (0.0-4.3) 07/29/18 04:21 Basophils % (Manual) 0 % (0.0-1.8) 07/29/18 04:21 Metamyelocytes % 0 % 07/29/18 04:21 Myelocytes % 2.0 % 07/29/18 04:21 Promyelocytes % 0 % 07/29/18 04:21 Blast Cells % 0 % 07/29/18 04:21 Nucleated RBC % Not Reportable 07/29/18 04:21 Seg Neutrophils # Man 5.3 K/mm3 (1.8-7.7) 07/29/18 04:21 Band Neutrophils # 2.0 K/mm3 07/29/18 04:21 Lymphocytes # (Manual) 1.0 K/mm3 (1.2-5.4) L 07/29/18 04:21 Abs React Lymphs (Man) 0.0 K/mm3 07/29/18 04:21 Monocytes # (Manual) 0.5 K/mm3 (0.0-0.8) 07/29/18 04:21 Eosinophils # (Manual) 0.0 K/mm3 (0.0-0.4) 07/29/18 04:21 Basophils # (Manual) 0.0 K/mm3 (0.0-0.1) 07/29/18 04:21 Metamyelocytes # 0.0 K/mm3 07/29/18 04:21 Myelocytes # 0.2 K/mm3 07/29/18 04:21 Promyelocytes # 0.0 K/mm3 07/29/18 04:21 Blast Cells # 0.0 K/mm3 07/29/18 04:21 Pathologist Review 07/28/18 06:01 WBC Morphology Not Reportable 07/29/18 04:21 Hypersegmented Neuts Not Reportable 07/29/18 04:21 Hyposegmented Neuts Not Reportable 07/29/18 04:21 Hypogranular Neuts Not Reportable 07/29/18 04:21 Smudge Cells Not Reportable 07/29/18 04:21 Toxic Granulation Not Reportable 07/29/18 04:21 Toxic Vacuolation Not Reportable 07/29/18 04:21 Dohle Bodies 1+ 07/29/18 04:21 Pelger-Huet Anomaly Not Reportable 07/29/18 04:21 Janiya Rods Not Reportable 07/29/18 04:21 Platelet Estimate Appears normal 07/29/18 04:21 Clumped Platelets Not Reportable 07/29/18 04:21 Plt Clumps, EDTA Not Reportable 07/29/18 04:21 Large Platelets Not Reportable 07/29/18 04:21 Giant Platelets Not Reportable 07/29/18 04:21 Platelet Satelliting Not Reportable 07/29/18 04:21 Plt Morphology Comment Not Reportable 07/29/18 04:21 RBC Morphology Not Reportable 07/29/18 04:21 Dimorphic RBCs Not Reportable 07/29/18 04:21 Polychromasia Not Reportable 07/29/18 04:21 Hypochromasia Few 07/29/18 04:21 Poikilocytosis Not Reportable 07/29/18 04:21 Anisocytosis 1+ 07/29/18 04:21 Microcytosis Not Reportable 07/29/18 04:21 Macrocytosis Not Reportable 07/29/18 04:21 Spherocytes Not Reportable 07/29/18 04:21 Pappenheimer Bodies Not Reportable 07/29/18 04:21 Sickle Cells Not Reportable 07/29/18 04:21 Target Cells Not Reportable 07/29/18 04:21 Tear Drop Cells Not Reportable 07/29/18 04:21 Ovalocytes Not Reportable 07/29/18 04:21 Helmet Cells Not Reportable 07/29/18 04:21 [place] Bodies Not Reportable 07/29/18 04:21 [place] Rings Not Reportable 07/29/18 04:21 [place] Cells Not Reportable 07/29/18 04:21 Bite Cells Not Reportable 07/29/18 04:21 Crenated Cell Not Reportable 07/29/18 04:21 Elliptocytes Not Reportable 07/29/18 04:21 Acanthocytes (Spur) Not Reportable 07/29/18 04:21 Rouleaux Not Reportable 07/29/18 04:21 Hemoglobin C Crystals Not Reportable 07/29/18 04:21 Schistocytes Not Reportable 07/29/18 04:21 Malaria parasites Not Reportable 07/29/18 04:21 Jigar Bodies Not Reportable 07/29/18 04:21 Hem Pathologist Commnt No 07/29/18 04:21 PT 16.0 Sec. (12.2-14.9) H 07/27/18 17:09 INR 1.24 (0.87-1.13) H 07/27/18 17:09 APTT 31.9 Sec. (24.2-36.6) 07/27/18 17:09 D-Dimer 798.17 ng/mlDDU (0-234) H 07/27/18 15:52 Heparin Anti-Xa Level 0.25 U.I./ml (0.3-0.7) L 07/29/18 08:16 POC ABG pH 7.266 (7.35-7.45) L 07/28/18 11:06 POC ABG pCO2 49.7 (35-45) H 07/28/18 11:06 POC ABG pO2 74 (80-105) L 07/28/18 11:06 POC ABG HCO3 22.6 07/28/18 11:06 POC ABG Total CO2 24 07/28/18 11:06 POC ABG O2 Sat 92 07/28/18 11:06 POC ABG Base Excess -4 07/28/18 11:06 FiO2 80 % 07/28/18 11:06 Sodium 138 mmol/L (137-145) 07/29/18 04:21 Potassium 4.8 mmol/L (3.6-5.0) 07/29/18 04:21 Chloride 101.8 mmol/L (98-107) 07/29/18 04:21 Carbon Dioxide 24 mmol/L (22-30) 07/29/18 04:21 Anion Gap 17 mmol/L 07/29/18 04:21 BUN 48 mg/dL (9-20) H 07/29/18 04:21 Creatinine 1.6 mg/dL (0.8-1.5) H 07/29/18 04:21 Estimated GFR 42 ml/min 07/29/18 04:21 BUN/Creatinine Ratio 30 % 07/29/18 04:21 Glucose 166 mg/dL (75-100) H 07/29/18 04:21 POC Glucose 195 (70-105) H 07/29/18 10:00 Lactic Acid 3.90 mmol/L (0.7-2.0) H* 07/28/18 09:20 Calcium 9.9 mg/dL (8.4-10.2) 07/29/18 04:21 Magnesium 1.80 mg/dL (1.7-2.3) 07/27/18 15:52 Total Bilirubin 1.30 mg/dL (0.1-1.2) H 07/27/18 12:59 AST 15 units/L (5-40) 07/27/18 12:59 ALT 16 units/L (7-56) 07/27/18 12:59 Alkaline Phosphatase 62 units/L (35-129) 07/27/18 12:59 Troponin T < 0.010 ng/mL (0.00-0.029) 07/27/18 12:59 NT-Pro-B Natriuret Pep 3913 pg/mL (0-900) H 07/27/18 12:59 Total Protein 6.2 g/dL (6.3-8.2) L 07/27/18 12:59 Albumin 3.6 g/dL (3.9-5) L 07/27/18 12:59 Albumin/Globulin Ratio 1.4 % 07/27/18 12:59 TSH 1.180 mlU/mL (0.270-4.200) 07/27/18 15:52 Free T4 1.28 ng/dL (0.76-1.46) 07/27/18 15:52 Urine Color Yellow (Yellow) 07/29/18 09:24 Urine Turbidity Cloudy (Clear) 07/29/18 09:24 Urine pH 5.0 (5.0-7.0) 07/29/18 09:24 Ur Specific [place] 1.017 (1.003-1.030) 07/29/18 09:24 Urine Protein 30 mg/dl mg/dL (Negative) 07/29/18 09:24 Urine Glucose (UA) Neg mg/dL (Negative) 07/29/18 09:24 Urine Ketones Neg mg/dL (Negative) 07/29/18 09:24 Urine Blood Mod (Negative) 07/29/18 09:24 Urine Nitrite Neg (Negative) 07/29/18 09:24 Urine Bilirubin Neg (Negative) 07/29/18 09:24 Urine Urobilinogen < 2.0 mg/dL (<2.0) 07/29/18 09:24 Ur Leukocyte Esterase Mod (Negative) 07/29/18 09:24 Urine WBC (Auto) 29.0 /HPF (0.0-6.0) H 07/29/18 09:24 Urine RBC (Auto) 7.0 /HPF (0.0-6.0) 07/29/18 09:24 U Epithel Cells (Auto) 2.0 /HPF (0-13.0) 07/29/18 09:24 Urine Bacteria (Auto) 1+ /HPF (Negative) 07/29/18 09:24 Urine Mucus Few /HPF 07/29/18 09:24 Urine Yeast (Budding) 1+ /HPF 07/29/18 09:24 Urine Creatinine 72.3 mg/dL (0.1-20.0) H 07/29/18 09:24 Urine Sodium 12 mmol/L 07/29/18 09:24 Random Vancomycin 9.2 ug/mL (0-40.0) 07/29/18 04:21 Nutrition/Malnutrition Assess - Dietary Evaluation Nutrition/Malnutrition Findings: Nutrition Notes Start: 07/28/18 10:54 Freq: Status: Active Protocol: Document 07/28/18 10:54 TW (Rec: 07/28/18 11:11 TW [id number]) Co-Sign 07/28/18 10:54 LP Nutrition Notes Need for Assessment generated from: MD Order Initial or Follow up Assessment Current Diagnoses Acute Kidney Injury COPD Sepsis Hypertension Heart Failure Respiratory Failure Other Pertinent Diagnosis Hx of Skin Cancer Current Diet NPO Labs/Tests Na: 135 K: 5.1 BUN: 54 Cr: 2.6 Medications Propofol Height 5 ft 8 in Weight 84.368 kg [place] Body Weight (lbs) 154.0 BMI 28.3 Subjective/Other Information MD consult for evaluation of nutritional intake. Pt on vent . Per pt friend in room, pt ate at [facility] 07/26. verbally ordered TF. Burn Absent Trauma Absent #1 Nutrition Diagnoses Inadequate oral intake Etiology Mechanical Ventilation As Evidenced by Signs and Symptoms NPO Is patient on ventilator? Yes Is Patient Ambulatory and/or Out of Bed No REE-([facility]-confined to bed) 1870.008 Calculation Used for Recommendations [facility] Additional Notes Fluid needs: 1ml/kcal Protein needs (1.2-2 kg/g) 102 -169 g/day Nutrition Intervention Change Diet Order: TF Nutrition Support: Nepro at 45 ml/hr Water Flush: 200ml q4h. Kcal 1,944 Protein (gm) 87 Fluid (mL) 785 Goal #1 TF tolerance Goal #2 Meet at least 80% of kcal needs and 80-100% of protein needs. Follow-Up By: 07/29/18 Additional Comments F/U new TF
--- NOTE | 2018-07-29 13:57 | Progress Note ---
Assessment and Plan Echo from our office reviewed - 07/27/2018 EF 60-65%, asymmetric septal hypertrophy, mild TR. Initiate PO amio and d/c amio gtt following 2nd PO dose. Cont PO cardizem Q6H. Cont heparin gtt and plan to convert to OAC prior to hospital discharge. Pt's home medication regimen included ASA 81 and plavix for PAD. D/c ASA and consider discontinuation of Plavix once OAC is initiated. Vent weaning per pulmonary. The patient has been seen in conjunction with Dr. Goodwin who agrees with the assessment and plan of care. - Patient Problems (1) Transient atrial fibrillation Current Visit: Yes Status: Acute (2) Acute respiratory failure Current Visit: Yes Status: Acute Qualifiers: Respiratory failure complication: hypoxia Qualified Code(s): J96.01 - Acute respiratory failure with hypoxia (3) COPD (chronic obstructive pulmonary disease) Current Visit: Yes Status: Chronic (4) Pneumonia Current Visit: Yes Status: Acute (5) Nonobstructive atherosclerosis of coronary artery Current Visit: Yes Status: Chronic (6) Hypertension Current Visit: Yes Status: Chronic Qualifiers: Hypertension type: essential hypertension Qualified Code(s): I10 - Essential (primary) hypertension (7) Hyperlipemia Current Visit: Yes Status: Chronic Qualifiers: Hyperlipidemia type: Mixed hyperlipidemia (8) Peripheral vascular disease Current Visit: Yes Status: Chronic (9) CARLEE (acute kidney injury) Current Visit: Yes Status: Acute (10) Lactic acid acidosis Current Visit: Yes Status: Acute Subjective Date of service: 07/29/18 Principal diagnosis: AFib Interval history: pt remains intubated, in SR with freq PACs on telemetry. amio and heparin gtts infusing. Objective Last Vital Signs Temp 98.9 F 07/29/18 12:00 Pulse 97 H 07/29/18 13:30 Resp 34 H 07/29/18 13:30 BP 129/70 07/29/18 13:30 Pulse Ox 92 07/29/18 13:30 - Physical Examination General: Other (intubated, sedated) HEENT: Positive: Normocephaly, Mucus Membranes Moist Neck: Positive: neck supple, trachea midline Cardiac: Positive: Reg Rate and Rhythm, S1/S2 Lungs: Positive: Rhonchi, Oxygen, Ventilated Respirations Neuro: Positive: Other (intubated, sedated ) Skin: Negative: Rash, Wound Musculoskeletal: No Pain Extremities: Absent: edema - Labs and Meds CBC 07/29/18 Range/Units 04:21 WBC 9.0 (4.5-11.0) K/mm3 RBC 3.21 L (3.65-5.03) M/mm3 Hgb 10.8 L (11.8-15.2) gm/dl Hct 33.0 L (35.5-45.6) % Plt Count 260 (140-440) K/mm3 Comprehensive Metabolic Panel 07/28/18 07/29/18 Range/Units 20:45 04:21 Sodium 134 L 138 (137-145) mmol/L Potassium 5.2 H 4.8 (3.6-5.0) mmol/L Chloride 98.6 101.8 (98-107) mmol/L Carbon Dioxide 22 24 (22-30) mmol/L BUN 58 H 48 H (9-20) mg/dL Creatinine 2.1 H 1.6 H (0.8-1.5) mg/dL Glucose 110 H 166 H (75-100) mg/dL Calcium 9.5 9.9 (8.4-10.2) mg/dL - Imaging and Cardiology EKG: report reviewed, image reviewed Echo: report reviewed ( 07/27/2018 EF 60-65%, asymmetric septal hypertrophy, mild TR. 05/2017 showed EF 55-60%, grade 1 diastolic dysfunction, mild TR, RVSP 22mmHg. 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 Treat medically. ) - Telemetry EKG Rhythm: Sinus Rhythm
--- NOTE | 2018-07-29 14:12 | Progress Note ---
Assessment and Plan Acute hypoxemic respiratory failure, on mechanical ventilatory support. Atrial fibrillation with rapid ventricular response. Possible congestive heart failure with an acute exacerbation. 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 Elevated D-dimer. Leukocytosis. Sepsis syndrome with hypotension and fevers this morning. Chronic obstructive lung disease with an acute exacerbation. Hypertension. Peripheral vascular disease. Mixed acidosis, respiratory and metabolic. Acute kidney injury. Lactic acidosis. Elevated BNP level of 3913. History of hypertension. History of arthritis. - reduce set rate to 12 cmH20 and repeat ABG - begin daily SBT's from tomorrow if tolerates change - VAP bundle addressed - titrate sedatives for RASS 0 to -1 - continue enteral nutrition as tolerated - continue supplemental oxygen to keep sats > 90% - aspiration precautions - continue bronchodilators with pulmonary hygiene per RT - continue therapeutic anticoagulation - continue stress ulcer prophylaxis - continue Antibiotics to complete course - continue Mobility protocol for pressure ulcer prevention - continue pother care per attending / other consultants .... re-evaluate in am & prn FULL CODE STATUS CONDITION: CRITICAL The high probability of a clinically significant, sudden or life-threatening deterioration of the [respiratory, cardiovascular, renal] system(s) required my full and direct attention, intervention and personal management. The aggregate critical care time was [32] minutes without overlap. Time includes spent on; [x] Data Review and interpretation [x] Patient assessment and monitoring of vital signs [x] Documentation [x] Medication orders and management Subjective Date of service: 07/29/18 Principal diagnosis: AFib Interval history: Patient is seen today for: Acute hypoxemic respiratory failure on MVS; Atrial fibrillation with RVR; Possible congestive heart failure with an acute exacerbation; History of deep venous thrombosis; Elevated D-dimer. Seen and examined at bedside; 24hour events reviewed; nursing and respiratory care staff consulted; no adverse overnight events reported to me; remains on MVS; tolerating reduced rate of 12/min well so far; remains in Atrial Fibrillation but rate better controlled; no emesis or overt aspiration and tolerating tube feeds; no new issues otherwise Objective Vital Signs - 12hr 07/29/18 07/29/18 07/29/18 02:30 03:00 03:25 Temperature 99.3 F Pulse Rate 87 87 Pulse Rate [ Anterior Bilateral Throughout] Pulse Rate [ Apical] Pulse Rate [ From Monitor] Respiratory 30 H 19 Rate Respiratory Rate [Anterior Bilateral Throughout] Blood Pressure 136/70 138/68 O2 Sat by Pulse 97 97 Oximetry 07/29/18 07/29/18 07/29/18 03:30 03:54 03:57 Temperature Pulse Rate 90 91 H Pulse Rate [ Anterior Bilateral Throughout] Pulse Rate [ Apical] Pulse Rate [ 89 From Monitor] Respiratory 19 28 H Rate Respiratory Rate [Anterior Bilateral Throughout] Blood Pressure 131/70 O2 Sat by Pulse 97 97 Oximetry 07/29/18 07/29/18 07/29/18 04:00 04:30 05:00 Temperature 98.6 F Pulse Rate 90 85 82 Pulse Rate [ Anterior Bilateral Throughout] Pulse Rate [ Apical] Pulse Rate [ From Monitor] Respiratory 30 H 26 H 30 H Rate Respiratory Rate [Anterior Bilateral Throughout] Blood Pressure 135/70 128/70 113/64 O2 Sat by Pulse 96 97 97 Oximetry 07/29/18 07/29/18 07/29/18 05:04 05:30 05:37 Temperature Pulse Rate 82 83 83 Pulse Rate [ Anterior Bilateral Throughout] Pulse Rate [ Apical] Pulse Rate [ From Monitor] Respiratory 30 H Rate Respiratory Rate [Anterior Bilateral Throughout] Blood Pressure 113/64 132/68 131/71 O2 Sat by Pulse 97 98 Oximetry 07/29/18 07/29/18 07/29/18 06:00 06:30 07:00 Temperature Pulse Rate 82 84 84 Pulse Rate [ Anterior Bilateral Throughout] Pulse Rate [ Apical] Pulse Rate [ From Monitor] Respiratory 24 14 29 H Rate Respiratory Rate [Anterior Bilateral Throughout] Blood Pressure 126/64 126/63 129/67 O2 Sat by Pulse 96 95 94 Oximetry 07/29/18 07/29/18 07/29/18 07:30 08:00 08:01 Temperature 98.7 F Pulse Rate 78 81 81 Pulse Rate [ Anterior Bilateral Throughout] Pulse Rate [ 81 Apical] Pulse Rate [ 81 From Monitor] Respiratory 30 H 25 H 25 H Rate Respiratory Rate [Anterior Bilateral Throughout] Blood Pressure 110/65 129/66 O2 Sat by Pulse 95 93 93 Oximetry 07/29/18 07/29/18 07/29/18 08:10 08:15 08:30 Temperature Pulse Rate 108 H 101 H Pulse Rate [ 103 H Anterior Bilateral Throughout] Pulse Rate [ Apical] Pulse Rate [ From Monitor] Respiratory 30 H Rate Respiratory 30 H Rate [Anterior Bilateral Throughout] Blood Pressure 129/66 106/61 O2 Sat by Pulse 94 96 Oximetry 07/29/18 07/29/18 07/29/18 08:34 09:00 09:30 Temperature Pulse Rate 110 H 93 H Pulse Rate [ 95 H Anterior Bilateral Throughout] Pulse Rate [ Apical] Pulse Rate [ From Monitor] Respiratory 30 H 30 H Rate Respiratory 30 H Rate [Anterior Bilateral Throughout] Blood Pressure 107/65 114/65 O2 Sat by Pulse 95 96 Oximetry 07/29/18 07/29/18 07/29/18 10:00 10:01 10:31 Temperature Pulse Rate 113 H 113 H 118 H Pulse Rate [ Anterior Bilateral Throughout] Pulse Rate [ Apical] Pulse Rate [ From Monitor] Respiratory 30 H 29 H Rate Respiratory Rate [Anterior Bilateral Throughout] Blood Pressure 97/76 113/77 O2 Sat by Pulse 97 95 Oximetry 07/29/18 07/29/18 07/29/18 10:36 11:00 11:30 Temperature Pulse Rate 106 H 105 H 106 H Pulse Rate [ Anterior Bilateral Throughout] Pulse Rate [ Apical] Pulse Rate [ From Monitor] Respiratory 30 H 23 Rate Respiratory Rate [Anterior Bilateral Throughout] Blood Pressure 113/77 122/62 117/72 O2 Sat by Pulse 95 94 Oximetry 07/29/18 07/29/18 07/29/18 11:54 12:00 12:30 Temperature 98.9 F Pulse Rate 111 H 105 H 98 H Pulse Rate [ Anterior Bilateral Throughout] Pulse Rate [ 110 H Apical] Pulse Rate [ 110 H From Monitor] Respiratory 30 H 30 H Rate Respiratory Rate [Anterior Bilateral Throughout] Blood Pressure 118/76 104/65 109/63 O2 Sat by Pulse 96 93 94 Oximetry 07/29/18 07/29/18 07/29/18 12:32 13:01 13:30 Temperature Pulse Rate 102 H 98 H 97 H Pulse Rate [ Anterior Bilateral Throughout] Pulse Rate [ Apical] Pulse Rate [ From Monitor] Respiratory 35 H 34 H Rate Respiratory Rate [Anterior Bilateral Throughout] Blood Pressure 109/63 94/73 129/70 O2 Sat by Pulse 90 92 Oximetry Constitutional: appears uncomfortable, other (elderly looking CM, normocephalic and atraumatic with mildly increased respiratory effort) Eyes: non-icteric ENT: oropharynx moist, other (ETT 23 cm SUHAS) Neck: supple, no lymphadenopathy, no JVD, other (No thyromegaly) Effort: mildly labored Ascultation: Bilateral: diminished breath sounds, rhonchi Percussion: Bilateral: not dull Cardiovascular: irregular rhythm, other (+ systolic murmur) Gastrointestinal: hypoactive bowel sounds, soft, non-tender, non-distended, other (No palpable HSM) Integumentary: rash, other (poor [place]) Extremities: no cyanosis, pink and warm, pulses normal, no ischemia or petechiae Neurologic: normal mental status, non-focal exam (grossly), pupils equal and round, CN II-XII normal, motor strength normal and Psychiatric: mood appropriate, affect normal CBC and BMP: 07/31/18 03:14 08/01/18 04:13 ABG, PT/INR, D-dimer: ABG POC ABG pH 7.266 (7.35-7.45) L 07/28/18 11:06 POC ABG pCO2 49.7 (35-45) H 07/28/18 11:06 POC ABG pO2 74 (80-105) L 07/28/18 11:06 POC ABG HCO3 22.6 07/28/18 11:06 POC ABG Total CO2 24 07/28/18 11:06 POC ABG O2 Sat 92 07/28/18 11:06 PT/INR, D-dimer PT 16.0 Sec. (12.2-14.9) H 07/27/18 17:09 INR 1.24 (0.87-1.13) H 07/27/18 17:09 D-Dimer 798.17 ng/mlDDU (0-234) H 07/27/18 15:52 Abnormal lab findings: Abnormal Labs 07/27/18 07/27/18 07/27/18 12:59 12:59 12:59 WBC 15.8 H RBC Hgb Hct MCV 104 H MCH 34 H RDW 16.3 H Seg Neuts % (Manual) 88.0 H Lymphocytes % (Manual) 3.0 L Seg Neutrophils # Man 13.9 H Lymphocytes # (Manual) 0.5 L PT 17.0 H INR 1.34 H D-Dimer Heparin Anti-Xa Level POC ABG pH POC ABG pCO2 POC ABG pO2 Sodium Potassium Chloride Carbon Dioxide 21 L BUN 38 H Creatinine 1.6 H Glucose POC Glucose Lactic Acid Total Bilirubin 1.30 H NT-Pro-B Natriuret Pep 3913 H Total Protein 6.2 L Albumin 3.6 L Urine WBC (Auto) Urine Creatinine 07/27/18 07/27/18 07/27/18 15:52 16:12 17:09 WBC RBC Hgb Hct MCV MCH RDW Seg Neuts % (Manual) Lymphocytes % (Manual) Seg Neutrophils # Man Lymphocytes # (Manual) PT 16.0 H INR 1.24 H D-Dimer 798.17 H Heparin Anti-Xa Level POC ABG pH POC ABG pCO2 POC ABG pO2 Sodium Potassium Chloride Carbon Dioxide BUN Creatinine Glucose POC Glucose Lactic Acid 5.00 H* Total Bilirubin NT-Pro-B Natriuret Pep Total Protein Albumin Urine WBC (Auto) Urine Creatinine 07/27/18 07/27/18 07/27/18 17:59 18:07 21:31 WBC RBC Hgb Hct MCV MCH RDW Seg Neuts % (Manual) Lymphocytes % (Manual) Seg Neutrophils # Man Lymphocytes # (Manual) PT INR D-Dimer Heparin Anti-Xa Level POC ABG pH 7.344 L POC ABG pCO2 POC ABG pO2 36 L Sodium Potassium Chloride Carbon Dioxide BUN Creatinine Glucose POC Glucose Lactic Acid 5.20 H* 5.00 H* Total Bilirubin NT-Pro-B Natriuret Pep Total Protein Albumin Urine WBC (Auto) Urine Creatinine 07/27/18 07/27/18 07/27/18 21:57 22:42 23:26 WBC RBC Hgb Hct MCV MCH RDW Seg Neuts % (Manual) Lymphocytes % (Manual) Seg Neutrophils # Man Lymphocytes # (Manual) PT INR D-Dimer Heparin Anti-Xa Level POC ABG pH 7.199 L POC ABG pCO2 62.0 H POC ABG pO2 Sodium Potassium Chloride Carbon Dioxide BUN Creatinine Glucose POC Glucose Lactic Acid 4.70 H* 5.00 H* Total Bilirubin NT-Pro-B Natriuret Pep Total Protein Albumin Urine WBC (Auto) Urine Creatinine 07/28/18 07/28/18 07/28/18 00:45 05:40 05:58 WBC RBC Hgb Hct MCV MCH RDW Seg Neuts % (Manual) Lymphocytes % (Manual) Seg Neutrophils # Man Lymphocytes # (Manual) PT INR D-Dimer Heparin Anti-Xa Level 0.11 L POC ABG pH 7.186 L POC ABG pCO2 60.1 H POC ABG pO2 68 L Sodium Potassium Chloride Carbon Dioxide BUN Creatinine Glucose POC Glucose Lactic Acid 4.70 H* Total Bilirubin NT-Pro-B Natriuret Pep Total Protein Albumin Urine WBC (Auto) Urine Creatinine 07/28/18 07/28/18 07/28/18 06:01 06:01 07:19 WBC 12.5 H RBC 3.51 L Hgb 11.5 L Hct MCV 104 H MCH 33 H RDW 16.6 H Seg Neuts % (Manual) Lymphocytes % (Manual) Seg Neutrophils # Man Lymphocytes # (Manual) PT INR D-Dimer Heparin Anti-Xa Level 0.14 L POC ABG pH POC ABG pCO2 POC ABG pO2 Sodium 135 L Potassium 5.1 H Chloride 95.0 L Carbon Dioxide 21 L BUN 54 H Creatinine 2.6 H D Glucose POC Glucose Lactic Acid Total Bilirubin NT-Pro-B Natriuret Pep Total Protein Albumin Urine WBC (Auto) Urine Creatinine 07/28/18 07/28/18 07/28/18 07:19 09:20 11:06 WBC RBC Hgb Hct MCV MCH RDW Seg Neuts % (Manual) Lymphocytes % (Manual) Seg Neutrophils # Man Lymphocytes # (Manual) PT INR D-Dimer Heparin Anti-Xa Level POC ABG pH 7.266 L POC ABG pCO2 49.7 H POC ABG pO2 74 L Sodium Potassium Chloride Carbon Dioxide BUN Creatinine Glucose POC Glucose Lactic Acid 4.00 H* 3.90 H* Total Bilirubin NT-Pro-B Natriuret Pep Total Protein Albumin Urine WBC (Auto) Urine Creatinine 07/28/18 07/28/18 07/28/18 15:06 20:45 23:36 WBC RBC Hgb Hct MCV MCH RDW Seg Neuts % (Manual) Lymphocytes % (Manual) Seg Neutrophils # Man Lymphocytes # (Manual) PT INR D-Dimer Heparin Anti-Xa Level 0.15 L POC ABG pH POC ABG pCO2 POC ABG pO2 Sodium 134 L Potassium 5.2 H Chloride Carbon Dioxide BUN 58 H Creatinine 2.1 H Glucose 110 H POC Glucose 125 H Lactic Acid Total Bilirubin NT-Pro-B Natriuret Pep Total Protein Albumin Urine WBC (Auto) Urine Creatinine 07/29/18 07/29/18 07/29/18 01:12 04:21 04:21 WBC RBC 3.21 L Hgb 10.8 L Hct 33.0 L MCV 103 H MCH 34 H RDW 16.4 H Seg Neuts % (Manual) Lymphocytes % (Manual) 11.0 L Seg Neutrophils # Man Lymphocytes # (Manual) 1.0 L PT INR D-Dimer Heparin Anti-Xa Level 0.21 L POC ABG pH POC ABG pCO2 POC ABG pO2 Sodium Potassium Chloride Carbon Dioxide BUN 48 H Creatinine 1.6 H Glucose 166 H POC Glucose Lactic Acid Total Bilirubin NT-Pro-B Natriuret Pep Total Protein Albumin Urine WBC (Auto) Urine Creatinine 07/29/18 07/29/18 07/29/18 05:19 08:16 09:24 WBC RBC Hgb Hct MCV MCH RDW Seg Neuts % (Manual) Lymphocytes % (Manual) Seg Neutrophils # Man Lymphocytes # (Manual) PT INR D-Dimer Heparin Anti-Xa Level 0.25 L POC ABG pH POC ABG pCO2 POC ABG pO2 Sodium Potassium Chloride Carbon Dioxide BUN Creatinine Glucose POC Glucose 181 H Lactic Acid Total Bilirubin NT-Pro-B Natriuret Pep Total Protein Albumin Urine WBC (Auto) 29.0 H Urine Creatinine 07/29/18 07/29/18 09:24 10:00 WBC RBC Hgb Hct MCV MCH RDW Seg Neuts % (Manual) Lymphocytes % (Manual) Seg Neutrophils # Man Lymphocytes # (Manual) PT INR D-Dimer Heparin Anti-Xa Level POC ABG pH POC ABG pCO2 POC ABG pO2 Sodium Potassium Chloride Carbon Dioxide BUN Creatinine Glucose POC Glucose 195 H Lactic Acid Total Bilirubin NT-Pro-B Natriuret Pep Total Protein Albumin Urine WBC (Auto) Urine Creatinine 72.3 H Chest x-ray: image reviewed (stable patchy bilateral infiltrates; left pleral effusion; elevated right eliel-diaphragm likely) Allied health notes reviewed: nursing
[2018-07-29] MEDS: CORDARONE PO SCH ×2 (14:59→21:03)
[2018-07-29] MEDS: NACL 0.9% 1000 ML 1,000 ML IV SCH (15:29)
[2018-07-29] MEDS: ROCEPHIN/NS 2 GM/100 ML 2 GM/100 ML BAG IV SCH (20:17)
[2018-07-29] MEDS: HEPARIN/ 0.45% NACL-25,000 UNIT/500 ML 25,000 UNIT/500 ML BAG IV SCH (21:47)
--- NOTE | 2018-07-29 23:13 | Progress Note ---
Assessment and Plan 1. Acute kidney injury: Likely Vasomotor / hemodynamic CARLEE in the setting of A.fib with RVR. Continue IV fluids. Renal function is improving. 2. Hyperkalemia: Improved. Monitor. 3. A.fib: Amiodarone and Heparin drip. 4. Respiratory failure: On vent. 5. Sepsis. D/w his at the bedside. Subjective Date of service: 07/29/18 Principal diagnosis: AFib Interval history: Patient was seen and examined at the bedside. Objective - Vital Signs Vital signs: Vital Signs - 12hr 07/29/18 07/29/18 07/29/18 11:30 11:54 12:00 Temperature 98.9 F Pulse Rate 106 H 111 H 105 H Pulse Rate [ Anterior Bilateral Throughout] Pulse Rate [ 110 H Apical] Pulse Rate [ 110 H From Monitor] Respiratory 23 30 H Rate Respiratory Rate [Anterior Bilateral Throughout] Blood Pressure 117/72 118/76 104/65 O2 Sat by Pulse 94 96 93 Oximetry 07/29/18 07/29/18 07/29/18 12:30 12:32 13:01 Temperature Pulse Rate 98 H 102 H 98 H Pulse Rate [ Anterior Bilateral Throughout] Pulse Rate [ Apical] Pulse Rate [ From Monitor] Respiratory 30 H 35 H Rate Respiratory Rate [Anterior Bilateral Throughout] Blood Pressure 109/63 109/63 94/73 O2 Sat by Pulse 94 90 Oximetry 07/29/18 07/29/18 07/29/18 13:30 14:00 14:31 Temperature Pulse Rate 97 H 100 H 100 H Pulse Rate [ Anterior Bilateral Throughout] Pulse Rate [ Apical] Pulse Rate [ From Monitor] Respiratory 34 H 26 H 31 H Rate Respiratory Rate [Anterior Bilateral Throughout] Blood Pressure 129/70 129/75 109/63 O2 Sat by Pulse 92 93 94 Oximetry 07/29/18 07/29/18 07/29/18 15:00 15:30 16:00 Temperature Pulse Rate 95 H 96 H 91 H Pulse Rate [ Anterior Bilateral Throughout] Pulse Rate [ 97 H Apical] Pulse Rate [ 110 H From Monitor] Respiratory 30 H 30 H 30 H Rate Respiratory Rate [Anterior Bilateral Throughout] Blood Pressure 113/68 113/72 114/66 O2 Sat by Pulse 95 93 93 Oximetry 07/29/18 07/29/18 07/29/18 16:30 16:44 17:00 Temperature Pulse Rate 99 H 89 97 H Pulse Rate [ Anterior Bilateral Throughout] Pulse Rate [ Apical] Pulse Rate [ From Monitor] Respiratory 30 H 30 H Rate Respiratory Rate [Anterior Bilateral Throughout] Blood Pressure 118/71 120/79 121/72 O2 Sat by Pulse 93 94 93 Oximetry 07/29/18 07/29/18 07/29/18 17:30 18:00 18:03 Temperature Pulse Rate 97 H 108 H 95 H Pulse Rate [ Anterior Bilateral Throughout] Pulse Rate [ Apical] Pulse Rate [ From Monitor] Respiratory 30 H 30 H Rate Respiratory Rate [Anterior Bilateral Throughout] Blood Pressure 119/71 130/67 130/67 O2 Sat by Pulse 93 92 Oximetry 07/29/18 07/29/18 07/29/18 18:30 19:00 19:30 Temperature Pulse Rate 96 H 79 86 Pulse Rate [ Anterior Bilateral Throughout] Pulse Rate [ Apical] Pulse Rate [ From Monitor] Respiratory 28 H 30 H 30 H Rate Respiratory Rate [Anterior Bilateral Throughout] Blood Pressure 125/65 116/62 118/63 O2 Sat by Pulse 89 89 90 Oximetry 07/29/18 07/29/18 07/29/18 19:45 20:00 20:02 Temperature 98.4 F Pulse Rate 94 H Pulse Rate [ 92 H Anterior Bilateral Throughout] Pulse Rate [ Apical] Pulse Rate [ 97 H From Monitor] Respiratory 30 H 30 H Rate Respiratory 30 H Rate [Anterior Bilateral Throughout] Blood Pressure 118/66 O2 Sat by Pulse 92 92 Oximetry 07/29/18 07/29/18 07/29/18 20:10 20:30 21:00 Temperature Pulse Rate 103 H 95 H 90 Pulse Rate [ Anterior Bilateral Throughout] Pulse Rate [ Apical] Pulse Rate [ From Monitor] Respiratory 30 H 30 H Rate Respiratory Rate [Anterior Bilateral Throughout] Blood Pressure 118/66 113/69 111/70 O2 Sat by Pulse 93 93 92 Oximetry 07/29/18 07/29/18 07/29/18 21:30 22:00 22:30 Temperature Pulse Rate 88 74 76 Pulse Rate [ Anterior Bilateral Throughout] Pulse Rate [ Apical] Pulse Rate [ 74 From Monitor] Respiratory 30 H 30 H 30 H Rate Respiratory Rate [Anterior Bilateral Throughout] Blood Pressure 96/66 107/62 109/61 O2 Sat by Pulse 92 93 92 Oximetry 07/29/18 23:00 Temperature Pulse Rate 76 Pulse Rate [ Anterior Bilateral Throughout] Pulse Rate [ Apical] Pulse Rate [ From Monitor] Respiratory 30 H Rate Respiratory Rate [Anterior Bilateral Throughout] Blood Pressure 108/58 O2 Sat by Pulse 93 Oximetry - General Appearance General appearance: well-developed, well-nourished, appears stated age, intubated, other (on vent) EENT: ATNC Neck: supple Respiratory: Present: Clear to Ascultation Cardiology: regular, S1S2, no murmurs Gastrointestinal: normoactive bowel sounds, no tenderness, no distended Integumentary: no rash, warm and dry Neurologic: other (sedated) Musculoskeletal: other (no edema) - Lab 07/29/18 04:21 07/30/18 03:21 Most recent lab results Calcium 9.9 mg/dL (8.4-10.2) 07/29/18 04:21 Magnesium 1.80 mg/dL (1.7-2.3) 07/27/18 15:52 Urine Creatinine 72.3 mg/dL (0.1-20.0) H 07/29/18 09:24 Urine Sodium 12 mmol/L 07/29/18 09:24 Medications & Allergies - Medications Allergies/Adverse Reactions: Allergies No Known Allergies Allergy (Verified 12/12/13 06:46) Home Medications: Home Medications Medication Instructions Recorded Confirmed Last Taken Type Pravastatin Sodium 40 mg PO DAILY 12/12/13 07/27/18 07/27/18 History Clopidogrel [Plavix] 75 mg PO DAILY #30 tablet 04/03/15 07/27/18 07/27/18 Rx amLODIPine [Norvasc] 10 mg PO DAILY #30 tablet 04/03/15 07/27/18 07/27/18 Rx Fluticasone/Salmeterol [Advair 1 puff IH BID 12/31/15 07/27/18 07/27/18 History Diskus 250-50 mcg] ALBUTEROL Inhaler (OR & NICU) 2 puff IH QID PRN 07/27/18 07/27/18 Unknown Histo ry [Proair] Aspirin [Aspirin BABY CHEW TAB] 81 mg PO DAILY 07/27/18 07/27/18 07/27/18 Histor y Cyanocobalamin (Vitamin B-12) 2,500 mcg PO DAILY 07/27/18 07/27/18 07/27/18 History [Vitamin B12] [place]-3S/Dha/Epa/Fish Oil/D3 [Fish 1 each PO DAILY 07/27/18 07/27/18 07/27/18 History Eqs-Xomko-6-Vit D Softgel] Active Medications: Generic Name Dose Route Start Last Admin Trade Name Freq PRN Reason Stop Dose Admin Acetaminophen 650 mg 07/28/18 04:34 07/28/18 05:29 Tylenol [place] 650 mg Q4H PRN Administration Fever >101 Amiodarone HCl 200 mg 07/29/18 14:00 07/29/18 21:03 Cordarone PO 200 mg BID IGNACIO Administration Lipase/Protease/Amylase 1 each 07/28/18 13:57 Pancreaze 10,500 Unit FEEDTUBE PRN PRN For Clogged Feeding Tube Arformoterol Tartrate 15 mcg 07/27/18 20:00 07/29/18 20:07 Brovana Nebu IH 15 mcg Q12HRT IGNACIO Administration Budesonide 0.5 mg 07/27/18 20:00 07/29/18 20:07 Pulmicort IH 0.5 mg Q12HRT IGNACIO Administration Clopidogrel Bisulfate 75 mg 07/28/18 10:00 07/29/18 10:37 Plavix PO 75 mg DAILY IGNACIO Administration Cyanocobalamin 2,500 mcg 07/28/18 10:00 07/29/18 10:04 Vitamin B-12 PO 2,500 mcg QDAY IGNACIO Administration Diltiazem HCl 60 mg 07/27/18 18:00 07/29/18 18:03 Cardizem PO 60 mg Q6HR IGNACIO Administration Famotidine 20 mg 07/28/18 10:00 07/29/18 10:04 Pepcid IV 20 mg DAILY IGNACIO Administration Hydrophilic Ointment 1 applic 07/27/18 20:09 Vaseline Lip Therapy TP Q2HR PRN Dry Lips Amiodarone HCl 900 mg/ 500 mls @ 33.33 mls/hr 07/27/18 17:00 07/29/18 10:47 Dextrose IV 07/30/18 02:00 0.5 mg/min DIRECT IGNACIO 16.67 mls/hr Administration Protocol 1 MG/MIN Ceftriaxone Sodium 2 gm in 100 mls @ 200 mls/hr 07/27/18 18:00 07/29/18 20:17 Rocephin/Ns 2 Gm/100 Ml IV 200 mls/hr Q24H IGNACIO Administration Protocol Heparin Sodium/Sodium Chloride 25,000 unit in 500 mls @ 24 mls/hr 07/27/18 17:00 07/29/18 21:47 Heparin/ 0.45% Nacl-25,000 Unit/500 Ml IV 1,800 units/hr TITR IGNACIO 36 mls/hr Administration Protocol 1,200 UNITS/HR Propofol 1,000 mg in 100 mls @ 2.531 mls/hr 07/27/18 21:00 07/29/18 20:24 Diprivan 10 Mg/Ml IV 20 mcg/kg/min TITR IGNACIO 10.124 mls/hr Titration Protocol 5 MCG/KG/MIN Azithromycin 500 mg/ Sodium 250 mls @ 250 mls/hr 07/28/18 13:00 07/29/18 10:37 Chloride IV 250 mls/hr Q24HR IGNACIO Administration Sodium Chloride 1,000 mls @ 75 mls/hr 07/28/18 13:00 07/28/18 13:30 Nacl 0.9% 1000 Ml IV 07/30/18 02:19 75 mls/hr DIRECT IGNACIO Administration Sodium Chloride 1,000 mls @ 100 mls/hr 07/28/18 22:00 07/29/18 15:29 Nacl 0.9% 1000 Ml IV 100 mls/hr DIRECT IGNACIO Administration Insulin Human Lispro 0 unit 07/29/18 07:00 07/29/18 21:42 Humalog SUB-Q 2 unit Q4HR IGNACIO Administration Protocol Methylprednisolone Sodium Succinate 40 mg 07/28/18 14:00 07/29/18 21:04 Solu-Medrol IV 40 mg Q8HR IGNACIO Administration Multi-Ingred Cream/Lotion/Oil/Oint 1 applic 07/27/18 20:09 Artificial Tears Ophth Oint OU Q4HR PRN Dry Eye(s) Pravastatin Sodium 40 mg 07/28/18 10:00 07/29/18 10:04 Pravachol PO 40 mg DAILY IGNACIO Administration Simple Syrup 15 ml 07/28/18 13:57 Simple Syrup FEEDTUBE PRN PRN Hypoglycemia Simple Syrup 30 ml 07/28/18 13:57 Simple Syrup FEEDTUBE PRN PRN Hypoglycemia Sodium Bicarbonate 325 mg 07/28/18 13:57 Sodium Bicarbonate FEEDTUBE PRN PRN For Clogged Feeding Tube Sodium Chloride 10 ml 07/27/18 22:00 07/29/18 21:04 Sodium Chloride Flush Syringe 10 Ml IV 10 ml BID IGNACIO Administration Sodium Chloride 10 ml 07/27/18 15:59 Sodium Chloride Flush Syringe 10 Ml IV PRN PRN LINE FLUSH
[2018-07-30] MEDS: DIPRIVAN 10 MG/ML 1,000 MG/100 ML BOTTLE IV SCH ×3 (01:42→19:30)
[2018-07-30] MEDS: NACL 0.9% 1000 ML 1,000 ML IV SCH (02:09)
[2018-07-30] MEDS: HumaLOG SUB-Q SCH ×6 (02:10→22:05)
[2018-07-30] MEDS: CARDIZEM PO SCH ×3 (05:19→19:28)
[2018-07-30] MEDS: SOLU-Medrol IV SCH ×3 (05:22→22:29)
[2018-07-30 06:06] LABS: BUN/Creatinine Ratio 46; Blood Urea Nitrogen 41 mg/dL (9-20); Calcium 9.8 mg/dL (8.4-10.2); Hemolysis Index 10
[2018-07-30] MEDS: BROVANA NEBU IH SCH ×2 (07:14→21:02)
[2018-07-30] MEDS: PULMICORT IH SCH ×2 (07:14→21:02)
--- NOTE | 2018-07-30 09:35 | XRay Report ---
FINAL REPORT EXAM: XR CHEST 1V AP HISTORY: follow up respiratory failure TECHNIQUE: Chest, portable PRIORS: 07/28/2018 FINDINGS: No endotracheal tube tip is about 4.5 cm above the madi. A nasogastric tube extends below the GE ju nction. There is left lower lobe infiltrate and small left pleural effusion which is unchanged. There is a ri ght apical pleural and parenchymal opacity which remains stable. There is no pneumothorax. IMPRESSION: Unchanged left lower lobe infiltrate and small left pleural effusion. Unchanged pleural/parenchymal o pacity in right apex.
--- NOTE | 2018-07-30 10:21 | Progress Note ---
Assessment and Plan 1. Acute kidney injury: Likely Vasomotor / hemodynamic CARLEE in the setting of A.fib with RVR. Continue IV fluids. Renal function is better. 2. FEN: Hyperkalemia, improved. Appears euvolemic. On tube feeding. Monitor. 3. A.fib: Rate controlled. Amiodarone and Heparin drip. 4. Respiratory failure: On vent. 5. Sepsis. D/w his at the bedside. Subjective Date of service: 07/30/18 Principal diagnosis: AFib Interval history: Patient was seen and examined at the bedside. Objective - Vital Signs Vital signs: Vital Signs - 12hr 07/29/18 07/29/18 07/29/18 22:30 23:00 23:05 Temperature Pulse Rate 76 76 71 Pulse Rate [ Anterior Bilateral Throughout] Pulse Rate [ From Monitor] Respiratory 30 H 30 H 30 H Rate Respiratory Rate [Anterior Bilateral Throughout] Blood Pressure 109/61 108/58 108/58 O2 Sat by Pulse 92 93 94 Oximetry 07/29/18 07/29/18 07/29/18 23:30 23:32 23:42 Temperature Pulse Rate 70 72 Pulse Rate [ Anterior Bilateral Throughout] Pulse Rate [ 71 From Monitor] Respiratory 30 H 30 H Rate Respiratory Rate [Anterior Bilateral Throughout] Blood Pressure 111/64 111/64 O2 Sat by Pulse 93 94 Oximetry 07/29/18 07/30/18 07/30/18 23:57 00:00 00:31 Temperature Pulse Rate 83 82 82 Pulse Rate [ Anterior Bilateral Throughout] Pulse Rate [ From Monitor] Respiratory 30 H 32 H Rate Respiratory Rate [Anterior Bilateral Throughout] Blood Pressure 124/65 124/65 132/75 O2 Sat by Pulse 92 92 91 Oximetry 07/30/18 07/30/18 07/30/18 01:00 01:30 02:00 Temperature Pulse Rate 78 78 78 Pulse Rate [ Anterior Bilateral Throughout] Pulse Rate [ From Monitor] Respiratory 32 H 32 H 30 H Rate Respiratory Rate [Anterior Bilateral Throughout] Blood Pressure 149/75 140/67 138/69 O2 Sat by Pulse 92 91 92 Oximetry 07/30/18 07/30/18 07/30/18 02:30 03:00 03:16 Temperature Pulse Rate 69 76 Pulse Rate [ Anterior Bilateral Throughout] Pulse Rate [ 70 From Monitor] Respiratory 10 L 30 H 30 H Rate Respiratory Rate [Anterior Bilateral Throughout] Blood Pressure 103/60 121/66 O2 Sat by Pulse 93 95 94 Oximetry 07/30/18 07/30/18 07/30/18 03:30 03:59 04:00 Temperature Pulse Rate 65 78 68 Pulse Rate [ Anterior Bilateral Throughout] Pulse Rate [ 67 From Monitor] Respiratory 30 H 30 H Rate Respiratory Rate [Anterior Bilateral Throughout] Blood Pressure 107/66 117/67 O2 Sat by Pulse 94 94 Oximetry 07/30/18 07/30/18 07/30/18 04:30 05:00 05:19 Temperature Pulse Rate 68 70 72 Pulse Rate [ Anterior Bilateral Throughout] Pulse Rate [ From Monitor] Respiratory 30 H 30 H Rate Respiratory Rate [Anterior Bilateral Throughout] Blood Pressure 115/66 118/64 122/61 O2 Sat by Pulse 95 95 Oximetry 07/30/18 07/30/18 07/30/18 05:30 06:01 06:30 Temperature Pulse Rate 71 70 78 Pulse Rate [ Anterior Bilateral Throughout] Pulse Rate [ From Monitor] Respiratory 30 H 21 31 H Rate Respiratory Rate [Anterior Bilateral Throughout] Blood Pressure 125/68 128/70 108/66 O2 Sat by Pulse 94 90 91 Oximetry 07/30/18 07/30/18 07/30/18 07:14 07:15 07:25 Temperature Pulse Rate 71 Pulse Rate [ 67 62 Anterior Bilateral Throughout] Pulse Rate [ From Monitor] Respiratory Rate Respiratory 30 H 30 H Rate [Anterior Bilateral Throughout] Blood Pressure 117/65 O2 Sat by Pulse 93 Oximetry 07/30/18 08:01 Temperature 97.5 F L Pulse Rate Pulse Rate [ Anterior Bilateral Throughout] Pulse Rate [ From Monitor] Respiratory Rate Respiratory Rate [Anterior Bilateral Throughout] Blood Pressure O2 Sat by Pulse Oximetry - General Appearance General appearance: well-developed, well-nourished, appears stated age, sedated on ventilator, intubated EENT: ATNC Neck: supple Respiratory: Present: Clear to Ascultation Cardiology: irregular, S1S2, no murmurs Gastrointestinal: normoactive bowel sounds, no tenderness, no distended Integumentary: no rash, warm and dry Neurologic: other (sedated) Musculoskeletal: other (no edema) - Lab 07/29/18 04:21 07/30/18 03:21 Most recent lab results Calcium 9.8 mg/dL (8.4-10.2) 07/30/18 03:21 Magnesium 1.80 mg/dL (1.7-2.3) 07/27/18 15:52 Urine Creatinine 72.3 mg/dL (0.1-20.0) H 07/29/18 09:24 Urine Sodium 12 mmol/L 07/29/18 09:24 Medications & Allergies - Medications Allergies/Adverse Reactions: Allergies No Known Allergies Allergy (Verified 12/12/13 06:46) Home Medications: Home Medications Medication Instructions Recorded Confirmed Last Taken Type Pravastatin Sodium 40 mg PO DAILY 12/12/13 07/27/18 07/27/18 History Clopidogrel [Plavix] 75 mg PO DAILY #30 tablet 04/03/15 07/27/18 07/27/18 Rx amLODIPine [Norvasc] 10 mg PO DAILY #30 tablet 04/03/15 07/27/18 07/27/18 Rx Fluticasone/Salmeterol [Advair 1 puff IH BID 12/31/15 07/27/18 07/27/18 History Diskus 250-50 mcg] ALBUTEROL Inhaler (OR & NICU) 2 puff IH QID PRN 07/27/18 07/27/18 Unknown History [Proair] Aspirin [Aspirin BABY CHEW TAB] 81 mg PO DAILY 07/27/18 07/27/18 07/27/18 History Cyanocobalamin (Vitamin B-12) 2,500 mcg PO DAILY 07/27/18 07/27/18 07/27/18 History [Vitamin B12] [place]-3S/Dha/Epa/Fish Oil/D3 [Fish 1 each PO DAILY 07/27/18 07/27/18 07/27/18 History Sca-Hsrtq-6-Vit D Softgel] Active Medications: Generic Name Dose Route Start Last Admin Trade Name Freq PRN Reason Stop Dose Admin Acetaminophen 650 mg 07/28/18 04:34 07/28/18 05:29 Tylenol [place] 650 mg Q4H PRN Administration Fever >101 Amiodarone HCl 200 mg 07/29/18 14:00 07/29/18 21:03 Cordarone PO 200 mg BID IGNACIO Administration Lipase/Protease/Amylase 1 each 07/28/18 13:57 Pancreana [place] 10,500 Unit FEEDTUBE PRN PRN For Clogged Feeding Tube Arformoterol Tartrate 15 mcg 07/27/18 20:00 07/30/18 07:14 Brovana Nebu IH 15 mcg Q12HRT IGNACIO Administration Budesonide 0.5 mg 07/27/18 20:00 07/30/18 07:14 Pulmicort IH 0.5 mg Q12HRT IGNACIO Administration Clopidogrel Bisulfate 75 mg 07/28/18 10:00 07/29/18 10:37 Plavix PO 75 mg DAILY IGNACIO Administration Cyanocobalamin 2,500 mcg 07/28/18 10:00 07/29/18 10:04 Vitamin B-12 PO 2,500 mcg QDAY IGNACIO Administration Diltiazem HCl 60 mg 07/27/18 18:00 07/30/18 05:19 Cardizem PO 60 mg Q6HR IGNACIO Administration Famotidine 20 mg 07/30/18 10:00 Pepcid IV BID IGNACIO Hydrophilic Ointment 1 applic 07/27/18 20:09 Vaseline Lip Therapy TP Q2HR PRN Dry Lips Ceftriaxone Sodium 2 gm in 100 mls @ 200 mls/hr 07/27/18 18:00 07/29/18 20:17 Rocephin/Ns 2 Gm/100 Ml IV 200 mls/hr Q24H IGNACIO Administration Protocol Heparin Sodium/Sodium Chloride 25,000 unit in 500 mls @ 24 mls/hr 07/27/18 17:00 07/29/18 21:47 Heparin/ 0.45% Nacl-25,000 Unit/500 Ml IV 1,800 units/hr TITR IGNACIO 36 mls/hr Administration Protocol 1,200 UNITS/HR Propofol 1,000 mg in 100 mls @ 2.531 mls/hr 07/27/18 21:00 07/30/18 01:42 Diprivan 10 Mg/Ml IV 20 mcg/kg/min TITR IGNACIO 10.124 mls/hr Administration Protocol 5 MCG/KG/MIN Azithromycin 500 mg/ Sodium 250 mls @ 250 mls/hr 07/28/18 13:00 07/29/18 10:37 Chloride IV 250 mls/hr Q24HR IGNACIO Administration Sodium Chloride 1,000 mls @ 100 mls/hr 07/28/18 22:00 07/29/18 15:29 Nacl 0.9% 1000 Ml IV 100 mls/hr DIRECT IGNACIO Administration Vancomycin HCl 1,250 mg/ 275 mls @ 166.667 mls/hr 07/30/18 10:00 Sodium Chloride IV Q18H [facility] Insulin Human Lispro 0 unit 07/29/18 07:00 07/30/18 05:23 Humalog SUB-Q 1 unit Q4HR IGNACIO Administration Protocol Methylprednisolone Sodium Succinate 40 mg 07/28/18 14:00 07/30/18 05:22 Solu-Medrol IV 40 mg Q8HR IGNACIO Administration Multi-Ingred Cream/Lotion/Oil/Oint 1 applic 07/27/18 20:09 Artificial Tears Ophth Oint OU Q4HR PRN Dry Eye(s) Pravastatin Sodium 40 mg 07/28/18 10:00 07/29/18 10:04 Pravachol PO 40 mg DAILY IGNACIO Administration Simple Syrup 15 ml 07/28/18 13:57 Simple Syrup FEEDTUBE PRN PRN Hypoglycemia Simple Syrup 30 ml 07/28/18 13:57 Simple Syrup FEEDTUBE PRN PRN Hypoglycemia Sodium Bicarbonate 325 mg 07/28/18 13:57 Sodium Bicarbonate FEEDTUBE PRN PRN For Clogged Feeding Tube Sodium Chloride 10 ml 07/27/18 22:00 07/29/18 21:04 Sodium Chloride Flush Syringe 10 Ml IV 10 ml BID IGNACIO Administration Sodium Chloride 10 ml 07/27/18 15:59 Sodium Chloride Flush Syringe 10 Ml IV PRN PRN LINE FLUSH
[2018-07-30] MEDS: PEPCID IV SCH ×2 (10:33→22:29)
[2018-07-30] MEDS: VITAMIN B-12 PO SCH (10:33)
[2018-07-30] MEDS: CORDARONE PO SCH ×2 (10:34→22:29)
[2018-07-30] MEDS: SODIUM CHLORIDE FLUSH SYRINGE 10 ML IV SCH (10:35)
[2018-07-30] MEDS: ZITHROMAX 500 MG in NACL 0.9% 250ML 250 ML IV SCH (10:36)
[2018-07-30] MEDS: PLAVIX PO SCH (10:41)
[2018-07-30] MEDS: PRAVACHOL PO SCH (10:41)
--- NOTE | 2018-07-30 13:05 | Progress Note ---
Assessment and Plan clinically improved afib w/rvr --> sr cont amio/cardizem/heparin tte reviewed - nl lv fxn vent wean per pulm discussed with family at length - Patient Problems (1) CARLEE (acute kidney injury) Current Visit: Yes Status: Acute (2) ARF (acute renal failure) with tubular necrosis Current Visit: Yes Status: Acute (3) Acidosis Current Visit: Yes Status: Acute (4) Acute respiratory failure Current Visit: Yes Status: Acute Qualifiers: Respiratory failure complication: hypoxia Qualified Code(s): J96.01 - Acute respiratory failure with hypoxia (5) Atrial fibrillation with RVR Current Visit: Yes Status: Acute (6) SIRS (systemic inflammatory response syndrome) Current Visit: Yes Status: Acute (7) COPD (chronic obstructive pulmonary disease) Current Visit: Yes Status: Chronic (8) Nonobstructive atherosclerosis of coronary artery Current Visit: Yes Status: Chronic (9) Peripheral vascular disease Current Visit: Yes Status: Chronic (10) Hypoxemia Current Visit: No Status: Acute (11) S/P vascular surgery Current Visit: No Status: Acute Subjective Date of service: 07/30/18 Principal diagnosis: AFib Interval history: intubated/sedated family at bedside Objective Vital Signs Temp Pulse Pulse Pulse Pulse Resp Resp 07/30/18 10:30 84 07/30/18 08:01 97.5 F L 07/30/18 07:25 62 30 H 07/30/18 07:15 71 07/30/18 07:14 67 30 H 07/30/18 06:30 78 31 H 07/30/18 06:01 70 21 07/30/18 05:30 71 30 H 07/30/18 05:19 72 07/30/18 05:00 70 30 H 07/30/18 04:30 68 30 H 07/30/18 04:00 68 67 30 H 07/30/18 03:59 78 07/30/18 03:30 65 30 H 07/30/18 03:16 70 30 H 07/30/18 03:00 76 30 H 07/30/18 02:30 69 10 L 07/30/18 02:00 78 30 H 07/30/18 01:30 78 32 H 07/30/18 01:00 78 32 H 07/30/18 00:31 82 32 H 12/15/18 00:00 82 30 H 14/18 23:57 83 14/18 23:42 71 30 H 14/18 23:32 72 14/18 23:30 70 30 H 14/18 23:05 71 30 H 14/18 23:00 76 30 H 14/18 22:30 76 30 H 14/18 22:00 74 74 30 H 14/18 21:30 88 30 H 14/18 21:00 90 30 H 14/18 20:30 95 H 30 H 14/18 20:10 103 H 1418 20:02 97 H 30 H 14/18 20:00 94 H 92 H 30 H 30 H 14/18 19:45 98.4 F 1418 19:30 86 30 H 14/18 19:00 79 30 H 14/18 18:30 96 H 28 H 14/18 18:03 95 H 14/18 18:00 108 H 30 H 1418 17:30 97 H 30 H 14/18 17:00 97 H 30 H 14/18 16:44 89 14/18 16:30 99 H 30 H 14/18 16:00 91 H 97 H 110 H 30 H 14/18 15:30 96 H 30 H 14/18 15:00 95 H 30 H 14/18 14:31 100 H 31 H 14/18 14:00 100 H 26 H 14/18 13:30 97 H 34 H BP Pulse Ox 07/30/18 10:30 124/67 91 18 08:01 07/30/18 07:25 07/30/18 07:15 117/65 93 07/30/18 07:14 07/30/18 06:30 108/66 91 07/30/18 06:01 128/70 90 07/30/18 05:30 125/68 94 07/30/18 05:19 122/61 07/30/18 05:00 118/64 95 07/30/18 04:30 115/66 95 07/30/18 04:00 117/67 94 07/30/18 03:59 12/15/18 03:30 107/66 94 12/15/18 03:16 94 07/30/18 03:00 121/66 95 07/30/18 02:30 103/60 93 07/30/18 02:00 138/69 92 07/30/18 01:30 140/67 91 07/30/18 01:00 149/75 92 07/30/18 00:31 132/75 91 07/30/18 00:00 124/65 92 07/29/18 23:57 124/65 92 07/29/18 23:42 94 07/29/18 23:32 111/64 07/29/18 23:30 111/64 93 07/29/18 23:05 108/58 94 07/29/18 23:00 108/58 93 07/29/18 22:30 109/61 92 07/29/18 22:00 107/62 93 07/29/18 21:30 96/66 92 07/29/18 21:00 111/70 92 07/29/18 20:30 113/69 93 07/29/18 20:10 118/66 93 18 20:02 92 07/29/18 20:00 118/66 92 18 19:45 07/29/18 19:30 118/63 90 18 19:00 116/62 89 18 18:30 125/65 89 18 18:03 130/67 18 18:00 130/67 92 18 17:30 119/71 93 18 17:00 121/72 93 18 16:44 120/79 94 18 16:30 118/71 93 18 16:00 114/66 93 1418 15:30 113/72 93 14/18 15:00 113/68 95 1418 14:31 109/63 94 18 14:00 129/75 93 1418 13:30 129/70 92 - Physical Examination General: Other (intubated, sedated) HEENT: Positive: Normocephaly, Mucus Membranes Moist Neck: Positive: neck supple, trachea midline Neuro: Positive: Other (intubated, sedated ) Skin: Negative: Rash, Wound Musculoskeletal: No Pain Extremities: Absent: edema - Labs and Meds Comprehensive Metabolic Panel 07/30/18 Range/Units 03:21 Sodium 140 (137-145) mmol/L Potassium 4.6 (3.6-5.0) mmol/L Chloride 103.9 (98-107) mmol/L Carbon Dioxide 26 (22-30) mmol/L BUN 41 H (9-20) mg/dL Creatinine 0.9 (0.8-1.5) mg/dL Glucose 202 H (75-100) mg/dL Calcium 9.8 (8.4-10.2) mg/dL - Imaging and Cardiology EKG: report reviewed, image reviewed Echo: report reviewed ( 07/27/2018 EF 60-65%, asymmetric septal hypertrophy, mild TR. 05/2017 showed EF 55-60%, grade 1 diastolic dysfunction, mild TR, RVSP 22mmHg. 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 Treat medically. ) - Allied health notes Allied health notes reviewed: nursing
--- NOTE | 2018-07-30 13:36 | Progress Note ---
Assessment and Plan Acute hypoxemic respiratory failure, on mechanical ventilatory support. Atrial fibrillation with rapid ventricular response, now sinus. 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 Elevated D-dimer. Leukocytosis. Sepsis Chronic obstructive lung disease-acute exacerbation. Hypertension. Peripheral vascular disease. Mixed acidosis, respiratory and metabolic. Acute kidney injury. Lactic acidosis. Elevated BNP level of 3913. History of hypertension. History of arthritis. - reduce set rate to 12 cmH20 and PEEP to 6 - Daily SAT and SBT, initiate today, discussed with RT and RN at the bedside - VAP bundle addressed - titrate sedation for RASS 0 to -1 - continue enteric nutrition as tolerated - continue supplemental oxygen to keep sats > 90% - aspiration precautions - continue bronchodilators with pulmonary hygiene per RT -Therapeutic anticoagulation -Stress ulcer prophylaxis -Antibiotics to complete course -Mobility for pressure ulcer prevention Discussed extensively with girlfriend, sister and brother in law at the bedside. All their questions were answered FULL CODE CONDITION: CRITICAL The high probability of a clinically significant, sudden or life-threatening deterioration of the [respiratory, cardiovascular, renal] system(s) required my full and direct attention, intervention and personal management. The aggregate critical care time was [35] minutes without overlap. Time includes spent on; [x] Data Review and interpretation [x] Patient assessment and monitoring of vital signs [x] Documentation [x] Medication orders and management Subjective Date of service: 07/30/18 Principal diagnosis: AFib Interval history: Patient is seen today for: Acute hypoxemic respiratory failure on MVS; Atrial fibrillation with RVR; Possible congestive heart failure with an acute exacerbation; History of deep venous thrombosis; Elevated D-dimer. Seen and examined at bedside; 24hour events reviewed; vitals, labs, medications, chart notes reviewed; nursing and respiratory care staff consulted; no adverse overnight events reported to me; remains on MVS;currently in sinus rhythm; no emesis or overt aspiration and tolerating tube feeds; no new issues otherwise Family at the bedside. Vent settings: AC-VC 30/450/8/55% ABG 7.351/50/78/27.8 Echo: report reviewed ( 07/27/2018 EF 60-65%, asymmetric septal hypertrophy, mild TR. 05/2017 showed EF 55-60%, grade 1 diastolic dysfunction, mild TR, RVSP 22mmHg. ) Cardiac cath: per Cardiology documentation (12/2015 showed non obstructive CAD, LAD calcified mid 60%, Diagonal 1 patent with mild LI, circ and OM2 patent, OM1 ostial 60% lesion, RCA mid 30% tortuosity, normal LV function. Treat medically. ) Objective Vital Signs - 12hr 07/30/18 07/30/18 07/30/18 02:00 02:30 03:00 Temperature Pulse Rate 78 69 76 Pulse Rate [ Anterior Bilateral Throughout] Pulse Rate [ From Monitor] Respiratory 30 H 10 L 30 H Rate Respiratory Rate [Anterior Bilateral Throughout] Blood Pressure 138/69 103/60 121/66 O2 Sat by Pulse 92 93 95 Oximetry 07/30/18 07/30/18 07/30/18 03:16 03:30 03:59 Temperature Pulse Rate 65 78 Pulse Rate [ Anterior Bilateral Throughout] Pulse Rate [ 70 From Monitor] Respiratory 30 H 30 H Rate Respiratory Rate [Anterior Bilateral Throughout] Blood Pressure 107/66 O2 Sat by Pulse 94 94 Oximetry 07/30/18 07/30/18 07/30/18 04:00 04:30 05:00 Temperature Pulse Rate 68 68 70 Pulse Rate [ Anterior Bilateral Throughout] Pulse Rate [ 67 From Monitor] Respiratory 30 H 30 H 30 H Rate Respiratory Rate [Anterior Bilateral Throughout] Blood Pressure 117/67 115/66 118/64 O2 Sat by Pulse 94 95 95 Oximetry 07/30/18 07/30/18 07/30/18 05:19 05:30 06:01 Temperature Pulse Rate 72 71 70 Pulse Rate [ Anterior Bilateral Throughout] Pulse Rate [ From Monitor] Respiratory 30 H 21 Rate Respiratory Rate [Anterior Bilateral Throughout] Blood Pressure 122/61 125/68 128/70 O2 Sat by Pulse 94 90 Oximetry 07/30/18 07/30/18 07/30/18 06:30 07:14 07:15 Temperature Pulse Rate 78 71 Pulse Rate [ 67 Anterior Bilateral Throughout] Pulse Rate [ From Monitor] Respiratory 31 H Rate Respiratory 30 H Rate [Anterior Bilateral Throughout] Blood Pressure 108/66 117/65 O2 Sat by Pulse 91 93 Oximetry 07/30/18 07/30/18 07/30/18 07:25 08:01 10:30 Temperature 97.5 F L Pulse Rate 84 Pulse Rate [ 62 Anterior Bilateral Throughout] Pulse Rate [ From Monitor] Respiratory Rate Respiratory 30 H Rate [Anterior Bilateral Throughout] Blood Pressure 124/67 O2 Sat by Pulse 91 Oximetry 07/30/18 12:00 Temperature 99.6 F Pulse Rate Pulse Rate [ Anterior Bilateral Throughout] Pulse Rate [ From Monitor] Respiratory Rate Respiratory Rate [Anterior Bilateral Throughout] Blood Pressure O2 Sat by Pulse Oximetry Constitutional: appears uncomfortable, other (elderly looking CM, normocephalic and atraumatic with mildly increased respiratory effort) Eyes: non-icteric ENT: oropharynx moist, other (ETT 23 cm SUHAS) Neck: supple, no lymphadenopathy, no JVD, other (No thyromegaly) Effort: mildly labored Ascultation: Bilateral: diminished breath sounds, rhonchi Percussion: Bilateral: not dull Cardiovascular: regular rate and rhythm, other (+ systolic murmur) Gastrointestinal: hypoactive bowel sounds, soft, non-tender, non-distended, other (No palpable HSM) Integumentary: rash, other (poor turgor) Extremities: no cyanosis, pink and warm, pulses normal, no ischemia or petechiae Neurologic: non-focal exam, pupils equal and round, other (sedated, moves lower extremities) Psychiatric: other (unable to assess) CBC and BMP: 07/29/18 04:21 07/30/18 03:21 ABG, PT/INR, D-dimer: ABG POC ABG pH 7.351 (7.35-7.45) 07/30/18 10:18 POC ABG pCO2 50.3 (35-45) H 07/30/18 10:18 POC ABG pO2 78 (80-105) L 07/30/18 10:18 POC ABG HCO3 27.8 07/30/18 10:18 POC ABG Total CO2 29 07/30/18 10:18 POC ABG O2 Sat 95 07/30/18 10:18 PT/INR, D-dimer PT 16.0 Sec. (12.2-14.9) H 07/27/18 17:09 INR 1.24 (0.87-1.13) H 07/27/18 17:09 D-Dimer 798.17 ng/mlDDU (0-234) H 07/27/18 15:52 Abnormal lab findings: Abnormal Labs 07/27/18 07/27/18 07/27/18 12:59 12:59 12:59 WBC 15.8 H RBC Hgb Hct MCV 104 H MCH 34 H RDW 16.3 H Seg Neuts % (Manual) 88.0 H Lymphocytes % (Manual) 3.0 L Seg Neutrophils # Man 13.9 H Lymphocytes # (Manual) 0.5 L PT 17.0 H INR 1.34 H D-Dimer Heparin Anti-Xa Level POC ABG pH POC ABG pCO2 POC ABG pO2 Sodium Potassium Chloride Carbon Dioxide 21 L BUN 38 H Creatinine 1.6 H Glucose POC Glucose Lactic Acid Total Bilirubin 1.30 H NT-Pro-B Natriuret Pep 3913 H Total Protein 6.2 L Albumin 3.6 L Urine WBC (Auto) Urine Creatinine 07/27/18 07/27/18 07/27/18 15:52 16:12 17:09 WBC RBC Hgb Hct MCV MCH RDW Seg Neuts % (Manual) Lymphocytes % (Manual) Seg Neutrophils # Man Lymphocytes # (Manual) PT 16.0 H INR 1.24 H D-Dimer 798.17 H Heparin Anti-Xa Level POC ABG pH POC ABG pCO2 POC ABG pO2 Sodium Potassium Chloride Carbon Dioxide BUN Creatinine Glucose POC Glucose Lactic Acid 5.00 H* Total Bilirubin NT-Pro-B Natriuret Pep Total Protein Albumin Urine WBC (Auto) Urine Creatinine 07/27/18 07/27/18 07/27/18 17:59 18:07 21:31 WBC RBC Hgb Hct MCV MCH RDW Seg Neuts % (Manual) Lymphocytes % (Manual) Seg Neutrophils # Man Lymphocytes # (Manual) PT INR D-Dimer Heparin Anti-Xa Level POC ABG pH 7.344 L POC ABG pCO2 POC ABG pO2 36 L Sodium Potassium Chloride Carbon Dioxide BUN Creatinine Glucose POC Glucose Lactic Acid 5.20 H* 5.00 H* Total Bilirubin NT-Pro-B Natriuret Pep Total Protein Albumin Urine WBC (Auto) Urine Creatinine 07/27/18 07/27/18 07/27/18 21:57 22:42 23:26 WBC RBC Hgb Hct MCV MCH RDW Seg Neuts % (Manual) Lymphocytes % (Manual) Seg Neutrophils # Man Lymphocytes # (Manual) PT INR D-Dimer Heparin Anti-Xa Level POC ABG pH 7.199 L POC ABG pCO2 62.0 H POC ABG pO2 Sodium Potassium Chloride Carbon Dioxide BUN Creatinine Glucose POC Glucose Lactic Acid 4.70 H* 5.00 H* Total Bilirubin NT-Pro-B Natriuret Pep Total Protein Albumin Urine WBC (Auto) Urine Creatinine 07/28/18 07/28/18 07/28/18 00:45 05:40 05:58 WBC RBC Hgb Hct MCV MCH RDW Seg Neuts % (Manual) Lymphocytes % (Manual) Seg Neutrophils # Man Lymphocytes # (Manual) PT INR D-Dimer Heparin Anti-Xa Level 0.11 L POC ABG pH 7.186 L POC ABG pCO2 60.1 H POC ABG pO2 68 L Sodium Potassium Chloride Carbon Dioxide BUN Creatinine Glucose POC Glucose Lactic Acid 4.70 H* Total Bilirubin NT-Pro-B Natriuret Pep Total Protein Albumin Urine WBC (Auto) Urine Creatinine 07/28/18 07/28/18 07/28/18 06:01 06:01 07:19 WBC 12.5 H RBC 3.51 L Hgb 11.5 L Hct MCV 104 H MCH 33 H RDW 16.6 H Seg Neuts % (Manual) Lymphocytes % (Manual) Seg Neutrophils # Man Lymphocytes # (Manual) PT INR D-Dimer Heparin Anti-Xa Level 0.14 L POC ABG pH POC ABG pCO2 POC ABG pO2 Sodium 135 L Potassium 5.1 H Chloride 95.0 L Carbon Dioxide 21 L BUN 54 H Creatinine 2.6 H D Glucose POC Glucose Lactic Acid Total Bilirubin NT-Pro-B Natriuret Pep Total Protein Albumin Urine WBC (Auto) Urine Creatinine 07/28/18 07/28/18 07/28/18 07:19 09:20 11:06 WBC RBC Hgb Hct MCV MCH RDW Seg Neuts % (Manual) Lymphocytes % (Manual) Seg Neutrophils # Man Lymphocytes # (Manual) PT INR D-Dimer Heparin Anti-Xa Level POC ABG pH 7.266 L POC ABG pCO2 49.7 H POC ABG pO2 74 L Sodium Potassium Chloride Carbon Dioxide BUN Creatinine Glucose POC Glucose Lactic Acid 4.00 H* 3.90 H* Total Bilirubin NT-Pro-B Natriuret Pep Total Protein Albumin Urine WBC (Auto) Urine Creatinine 07/28/18 07/28/18 07/28/18 15:06 20:45 23:36 WBC RBC Hgb Hct MCV MCH RDW Seg Neuts % (Manual) Lymphocytes % (Manual) Seg Neutrophils # Man Lymphocytes # (Manual) PT INR D-Dimer Heparin Anti-Xa Level 0.15 L POC ABG pH POC ABG pCO2 POC ABG pO2 Sodium 134 L Potassium 5.2 H Chloride Carbon Dioxide BUN 58 H Creatinine 2.1 H Glucose 110 H POC Glucose 125 H Lactic Acid Total Bilirubin NT-Pro-B Natriuret Pep Total Protein Albumin Urine WBC (Auto) Urine Creatinine 07/29/18 07/29/18 07/29/18 01:12 04:21 04:21 WBC RBC 3.21 L Hgb 10.8 L Hct 33.0 L MCV 103 H MCH 34 H RDW 16.4 H Seg Neuts % (Manual) Lymphocytes % (Manual) 11.0 L Seg Neutrophils # Man Lymphocytes # (Manual) 1.0 L PT INR D-Dimer Heparin Anti-Xa Level 0.21 L POC ABG pH POC ABG pCO2 POC ABG pO2 Sodium Potassium Chloride Carbon Dioxide BUN 48 H Creatinine 1.6 H Glucose 166 H POC Glucose Lactic Acid Total Bilirubin NT-Pro-B Natriuret Pep Total Protein Albumin Urine WBC (Auto) Urine Creatinine 07/29/18 07/29/18 07/29/18 05:19 08:16 09:24 WBC RBC Hgb Hct MCV MCH RDW Seg Neuts % (Manual) Lymphocytes % (Manual) Seg Neutrophils # Man Lymphocytes # (Manual) PT INR D-Dimer Heparin Anti-Xa Level 0.25 L POC ABG pH POC ABG pCO2 POC ABG pO2 Sodium Potassium Chloride Carbon Dioxide BUN Creatinine Glucose POC Glucose 181 H Lactic Acid Total Bilirubin NT-Pro-B Natriuret Pep Total Protein Albumin Urine WBC (Auto) 29.0 H Urine Creatinine 07/29/18 07/29/18 07/29/18 09:24 10:00 15:03 WBC RBC Hgb Hct MCV MCH RDW Seg Neuts % (Manual) Lymphocytes % (Manual) Seg Neutrophils # Man Lymphocytes # (Manual) PT INR D-Dimer Heparin Anti-Xa Level POC ABG pH POC ABG pCO2 POC ABG pO2 Sodium Potassium Chloride Carbon Dioxide BUN Creatinine Glucose POC Glucose 195 H 167 H Lactic Acid Total Bilirubin NT-Pro-B Natriuret Pep Total Protein Albumin Urine WBC (Auto) Urine Creatinine 72.3 H 07/29/18 07/29/18 07/30/18 17:51 21:32 01:38 WBC RBC Hgb Hct MCV MCH RDW Seg Neuts % (Manual) Lymphocytes % (Manual) Seg Neutrophils # Man Lymphocytes # (Manual) PT INR D-Dimer Heparin Anti-Xa Level POC ABG pH POC ABG pCO2 POC ABG pO2 Sodium Potassium Chloride Carbon Dioxide BUN Creatinine Glucose POC Glucose 167 H 217 H 194 H Lactic Acid Total Bilirubin NT-Pro-B Natriuret Pep Total Protein Albumin Urine WBC (Auto) Urine Creatinine 07/30/18 07/30/18 07/30/18 03:21 05:13 10:18 WBC RBC Hgb Hct MCV MCH RDW Seg Neuts % (Manual) Lymphocytes % (Manual) Seg Neutrophils # Man Lymphocytes # (Manual) PT INR D-Dimer Heparin Anti-Xa Level POC ABG pH POC ABG pCO2 50.3 H POC ABG pO2 78 L Sodium Potassium Chloride Carbon Dioxide BUN 41 H Creatinine Glucose 202 H POC Glucose 151 H Lactic Acid Total Bilirubin NT-Pro-B Natriuret Pep Total Protein Albumin Urine WBC (Auto) Urine Creatinine 07/30/18 11:29 WBC RBC Hgb Hct MCV MCH RDW Seg Neuts % (Manual) Lymphocytes % (Manual) Seg Neutrophils # Man Lymphocytes # (Manual) PT INR D-Dimer Heparin Anti-Xa Level POC ABG pH POC ABG pCO2 POC ABG pO2 Sodium Potassium Chloride Carbon Dioxide BUN Creatinine Glucose POC Glucose 247 H Lactic Acid Total Bilirubin NT-Pro-B Natriuret Pep Total Protein Albumin Urine WBC (Auto) Urine Creatinine Chest x-ray: image reviewed Allied health notes reviewed: RT
--- NOTE | 2018-07-30 13:51 | Progress Note ---
Assessment and Plan Assessment and plan: Sepsis. Continue IV antibiotics and follow-up blood cultures. Patient with lactic acid levels in the 5 range but now trending downward. Left lower lobe pneumonia. Continue antibiotics and follow chest x-ray. Acute hypoxemic respiratory failure. Etiology secondary to above. Continue on mechanical ventilation and weaning per pulmonary. Follow-up serial chest x-ray and ABGs. Continue sedation holidays --patient currently with Diprivan Atrial fibrillation. Patient currently on IV amiodarone and IV heparin. Cardiology following. Continue po diltiazem. Wean amiodarone drip. Check echocardiogram. Acute renal failure. Etiology likely secondary to sepsis/ATN. Renal ultrasound unremarkable. COPD exacerbation. Continue bronchodilators/nebulizers. IV steroids. Hypertension. Resume antihypertensive medications as needed. Hyperlipidemia. Peripheral vascular disease. The high probability of a clinically significant, sudden or life threatening deterioration of the [respiratory] system(s) required my full and direct attention, intervention and personal management. The aggregate critical care time was [33] minutes. This time is in addition to time spent performing reported procedures but includes the following: [x] Data Review and interpretation [x] Patient assessment and monitoring of vital signs [x] Documentation [x] Medication orders and management History Interval history: 73 YO Male with H/O COPD, PVD, HTN, HLD, Seizure Disorder, Skin Cancer presents to ED for evaluation. Pt states that he has experienced shortness and chest palpitations over the past 2 days with worsening symptoms over the past 1 day. Pt acknowledges decreased exercise tolerance, as well as dyspnea on exertion. 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 Pt denies fever, chills, leg swelling, calf pain, CP with deep breathing, hemoptysis, Prolonged air/car travel, or immobility, Back Pain, Syncope, Lightheadedness, recent ill contacts, unintentional weight loss, night sweats, or bone pain. Pt seen and evaluated in ED and found to have Atrial Fib with RVR refractory to cardizem drip, but improved with Amiodarone Drip, Acute Hypoxemic Respiratory Failure, SIRS. Pt admitted to ICU. The patient later after admission had further decompensation with respiratory distress. Patient reportedly was satting 60-70% on a nonrebreather and had to be emergently intubated. The patient remains intubated on mechanical ventilation and to prevent drip. Patient also on amiodarone drip. Hospitalist Physical - Constitutional Vitals: Temp Pulse Resp BP Pulse Ox 99.6 F 84 30 H 124/67 91 07/30/18 12:00 07/30/18 10:30 07/30/18 07:25 07/30/18 10:30 07/30/18 10:30 General appearance: Present: mild distress, other (intubated on mechanical ventilation) - EENT Eyes: Present: PERRL, EOM intact ENT: hearing intact, clear oral mucosa, dentition normal - Neck Neck: Present: supple, normal ROM - Respiratory Respiratory effort: normal Respiratory: bilateral: CTA - Cardiovascular Rhythm: regular Heart Sounds: Present: S1 & S2. Absent: gallop, rub - Extremities Extremities: no ischemia, No edema, Full ROM - Abdominal General gastrointestinal: soft, non-tender, non-distended, normal bowel sounds - Integumentary Integumentary: Present: clear, warm, dry - Neurologic Neurologic: CNII-XII intact, moves all extremities Results - Labs CBC & Chem 7: 07/29/18 04:21 07/30/18 03:21 Labs: Laboratory Last Values WBC 9.0 K/mm3 (4.5-11.0) 07/29/18 04:21 RBC 3.21 M/mm3 (3.65-5.03) L 07/29/18 04:21 Hgb 10.8 gm/dl (11.8-15.2) L 07/29/18 04:21 Hct 33.0 % (35.5-45.6) L 07/29/18 04:21 MCV 103 fl (84-94) H 07/29/18 04:21 MCH 34 pg (28-32) H 07/29/18 04:21 MCHC 33 % (32-34) 07/29/18 04:21 RDW 16.4 % (13.2-15.2) H 07/29/18 04:21 Plt Count 260 K/mm3 (140-440) 07/29/18 04:21 Add Manual Diff Complete 07/29/18 04:21 Total Counted 100 07/29/18 04:21 Seg Neutrophils % Hydro Excavation Operator 07/29/18 04:21 Seg Neuts % (Manual) 59.0 % (40.0-70.0) 07/29/18 04:21 Band Neutrophils % 22.0 % 07/29/18 04:21 Lymphocytes % (Manual) 11.0 % (13.4-35.0) L 07/29/18 04:21 Reactive Lymphs % (Man) 0 % 07/29/18 04:21 Monocytes % (Manual) 6.0 % (0.0-7.3) 07/29/18 04:21 Eosinophils % (Manual) 0 % (0.0-4.3) 07/29/18 04:21 Basophils % (Manual) 0 % (0.0-1.8) 07/29/18 04:21 Metamyelocytes % 0 % 07/29/18 04:21 Myelocytes % 2.0 % 07/29/18 04:21 Promyelocytes % 0 % 07/29/18 04:21 Blast Cells % 0 % 07/29/18 04:21 Nucleated RBC % Not Reportable 07/29/18 04:21 Seg Neutrophils # Man 5.3 K/mm3 (1.8-7.7) 07/29/18 04:21 Band Neutrophils # 2.0 K/mm3 07/29/18 04:21 Lymphocytes # (Manual) 1.0 K/mm3 (1.2-5.4) L 07/29/18 04:21 Abs React Lymphs (Man) 0.0 K/mm3 07/29/18 04:21 Monocytes # (Manual) 0.5 K/mm3 (0.0-0.8) 07/29/18 04:21 Eosinophils # (Manual) 0.0 K/mm3 (0.0-0.4) 07/29/18 04:21 Basophils # (Manual) 0.0 K/mm3 (0.0-0.1) 07/29/18 04:21 Metamyelocytes # 0.0 K/mm3 07/29/18 04:21 Myelocytes # 0.2 K/mm3 07/29/18 04:21 Promyelocytes # 0.0 K/mm3 07/29/18 04:21 Blast Cells # 0.0 K/mm3 07/29/18 04:21 Pathologist Review 07/28/18 06:01 WBC Morphology Not Reportable 07/29/18 04:21 Hypersegmented Neuts Not Reportable 07/29/18 04:21 Hyposegmented Neuts Not Reportable 07/29/18 04:21 Hypogranular Neuts Not Reportable 07/29/18 04:21 Smudge Cells Not Reportable 07/29/18 04:21 Toxic Granulation Not Reportable 07/29/18 04:21 Toxic Vacuolation Not Reportable 07/29/18 04:21 Dohle Bodies 1+ 07/29/18 04:21 Pelger-Huet Anomaly Not Reportable 07/29/18 04:21 Janiya Rods Not Reportable 07/29/18 04:21 Platelet Estimate Appears normal 07/29/18 04:21 Clumped Platelets Not Reportable 07/29/18 04:21 Plt Clumps, EDTA Not Reportable 07/29/18 04:21 Large Platelets Not Reportable 07/29/18 04:21 Giant Platelets Not Reportable 07/29/18 04:21 Platelet Satelliting Not Reportable 07/29/18 04:21 Plt Morphology Comment Not Reportable 07/29/18 04:21 RBC Morphology Not Reportable 07/29/18 04:21 Dimorphic RBCs Not Reportable 07/29/18 04:21 Polychromasia Not Reportable 07/29/18 04:21 Hypochromasia Few 07/29/18 04:21 Poikilocytosis Not Reportable 07/29/18 04:21 Anisocytosis 1+ 07/29/18 04:21 Microcytosis Not Reportable 07/29/18 04:21 Macrocytosis Not Reportable 07/29/18 04:21 Spherocytes Not Reportable 07/29/18 04:21 Pappenheimer Bodies Not Reportable 07/29/18 04:21 Sickle Cells Not Reportable 07/29/18 04:21 Target Cells Not Reportable 07/29/18 04:21 Tear Drop Cells Not Reportable 07/29/18 04:21 Ovalocytes Not Reportable 07/29/18 04:21 Helmet Cells Not Reportable 07/29/18 04:21 Lr-[place] Bodies Not Reportable 07/29/18 04:21 Fallentimber Rings Not Reportable 07/29/18 04:21 Guston Cells Not Reportable 07/29/18 04:21 Bite Cells Not Reportable 07/29/18 04:21 Crenated Cell Not Reportable 07/29/18 04:21 Elliptocytes Not Reportable 07/29/18 04:21 Acanthocytes (Spur) Not Reportable 07/29/18 04:21 Rouleaux Not Reportable 07/29/18 04:21 Hemoglobin C Crystals Not Reportable 07/29/18 04:21 Schistocytes Not Reportable 07/29/18 04:21 Malaria parasites Not Reportable 07/29/18 04:21 Jigar Bodies Not Reportable 07/29/18 04:21 Hem Pathologist Commnt No 07/29/18 04:21 PT 16.0 Sec. (12.2-14.9) H 07/27/18 17:09 INR 1.24 (0.87-1.13) H 07/27/18 17:09 APTT 31.9 Sec. (24.2-36.6) 07/27/18 17:09 D-Dimer 798.17 ng/mlDDU (0-234) H 07/27/18 15:52 Heparin Anti-Xa Level 0.34 U.I./ml (0.3-0.7) 07/30/18 09:25 POC ABG pH 7.351 (7.35-7.45) 07/30/18 10:18 POC ABG pCO2 50.3 (35-45) H 07/30/18 10:18 POC ABG pO2 78 (80-105) L 07/30/18 10:18 POC ABG HCO3 27.8 07/30/18 10:18 POC ABG Total CO2 29 07/30/18 10:18 POC ABG O2 Sat 95 07/30/18 10:18 POC ABG Base Excess 2 07/30/18 10:18 FiO2 60 % 07/30/18 10:18 Sodium 140 mmol/L (137-145) 07/30/18 03:21 Potassium 4.6 mmol/L (3.6-5.0) 07/30/18 03:21 Chloride 103.9 mmol/L (98-107) 07/30/18 03:21 Carbon Dioxide 26 mmol/L (22-30) 07/30/18 03:21 Anion Gap 15 mmol/L 07/30/18 03:21 BUN 41 mg/dL (9-20) H 07/30/18 03:21 Creatinine 0.9 mg/dL (0.8-1.5) 07/30/18 03:21 Estimated GFR > 60 ml/min 07/30/18 03:21 BUN/Creatinine Ratio 46 % 07/30/18 03:21 Glucose 202 mg/dL (75-100) H 07/30/18 03:21 POC Glucose 247 (70-105) H 07/30/18 11:29 Lactic Acid 3.90 mmol/L (0.7-2.0) H* 07/28/18 09:20 Calcium 9.8 mg/dL (8.4-10.2) 07/30/18 03:21 Magnesium 1.80 mg/dL (1.7-2.3) 07/27/18 15:52 Total Bilirubin 1.30 mg/dL (0.1-1.2) H 07/27/18 12:59 AST 15 units/L (5-40) 07/27/18 12:59 ALT 16 units/L (7-56) 07/27/18 12:59 Alkaline Phosphatase 62 units/L (35-129) 07/27/18 12:59 Troponin T < 0.010 ng/mL (0.00-0.029) 07/27/18 12:59 NT-Pro-B Natriuret Pep 3913 pg/mL (0-900) H 07/27/18 12:59 Total Protein 6.2 g/dL (6.3-8.2) L 07/27/18 12:59 Albumin 3.6 g/dL (3.9-5) L 07/27/18 12:59 Albumin/Globulin Ratio 1.4 % 07/27/18 12:59 TSH 1.180 mlU/mL (0.270-4.200) 07/27/18 15:52 Free T4 1.28 ng/dL (0.76-1.46) 07/27/18 15:52 Urine Color Yellow (Yellow) 07/29/18 09:24 Urine Turbidity Cloudy (Clear) 07/29/18 09:24 Urine pH 5.0 (5.0-7.0) 07/29/18 09:24 Ur Specific [place] 1.017 (1.003-1.030) 07/29/18 09:24 Urine Protein 30 mg/dl mg/dL (Negative) 07/29/18 09:24 Urine Glucose (UA) Neg mg/dL (Negative) 07/29/18 09:24 Urine Ketones Neg mg/dL (Negative) 07/29/18 09:24 Urine Blood Mod (Negative) 07/29/18 09:24 Urine Nitrite Neg (Negative) 07/29/18 09:24 Urine Bilirubin Neg (Negative) 07/29/18 09:24 Urine Urobilinogen < 2.0 mg/dL (<2.0) 07/29/18 09:24 Ur Leukocyte Esterase Mod (Negative) 07/29/18 09:24 Urine WBC (Auto) 29.0 /HPF (0.0-6.0) H 07/29/18 09:24 Urine RBC (Auto) 7.0 /HPF (0.0-6.0) 07/29/18 09:24 U Epithel Cells (Auto) 2.0 /HPF (0-13.0) 07/29/18 09:24 Urine Bacteria (Auto) 1+ /HPF (Negative) 07/29/18 09:24 Urine Mucus Few /HPF 07/29/18 09:24 Urine Yeast (Budding) 1+ /HPF 07/29/18 09:24 Urine Creatinine 72.3 mg/dL (0.1-20.0) H 07/29/18 09:24 Urine Sodium 12 mmol/L 07/29/18 09:24 Random Vancomycin 9.2 ug/mL (0-40.0) 07/29/18 04:21 Nutrition/Malnutrition Assess - Dietary Evaluation Nutrition/Malnutrition Findings: Nutrition Notes Start: 07/28/18 10:54 Freq: Status: Active Protocol: Document 07/29/18 11:56 TW (Rec: 07/29/18 12:47 TW [id number]) Co-Sign 07/29/18 11:56 OL Nutrition Notes Need for Assessment generated from: MD Order Initial or Follow up Reassessment Current Diagnoses Acute Kidney Injury COPD Sepsis Hypertension Heart Failure Respiratory Failure Other Pertinent Diagnosis Hx of Skin Cancer Current Diet Nepro at 50ml/hr Labs/Tests BUN: 60 Cr: 1.6 B Medications Propofol at 10.124 ml/hr (267 kcal) Solu-Medrol Height 5 ft 8 in Weight 88.1 kg [place] Body Weight (lbs) 154.0 BMI 29.5 Subjective/Other Information Observed Nepro at 20ml/hr. Per RN, pt tolerating TF well. Pt . still on vent. Percent of energy/protein needs met: 45%/38% Burn Absent Trauma Absent #1 Nutrition Diagnoses Inadequate oral intake Diagnosis Progress(for reassessment Continues documentation) Is patient on ventilator? Yes Is Patient Ambulatory and/or Out of Bed No REE-([facility]-confined to bed) 6064.194 Calculation Used for Recommendations [facility] Additional Notes Fluid needs: 1ml/kcal Protein needs (1.2-2 kg/g) 106 -176 g/day Nutrition Intervention Change Diet Order: TF Nutrition Support: Nepro at 45 ml/hr Water Flush: 200ml q4h. Kcal 1,944 Protein (gm) 87 Fluid (mL) 785 Goal #1 TF tolerance and rate Goal #2 Meet at least 80% of kcal needs and 80-100% of protein needs. Follow-Up By: 08/01/18 Additional Comments F/U for TF to goal
[2018-07-30] MEDS: VANCOMYCIN 1,250 MG in NACL 0.9% 250ML 250 ML IV SCH (14:49)
[2018-07-30] MEDS: ROCEPHIN/NS 2 GM/100 ML 2 GM/100 ML BAG IV SCH (19:29)
[2018-07-31] MEDS: HEPARIN/ 0.45% NACL-25,000 UNIT/500 ML 25,000 UNIT/500 ML BAG IV SCH ×2 (02:56→19:06)
[2018-07-31] MEDS: SODIUM CHLORIDE FLUSH SYRINGE 10 ML IV SCH ×2 (02:59→14:34)
[2018-07-31] MEDS: CARDIZEM PO SCH ×4 (02:59→21:42)
[2018-07-31] MEDS: HumaLOG SUB-Q SCH ×4 (03:14→14:38)
[2018-07-31 04:11] LABS: BUN/Creatinine Ratio 51; Blood Urea Nitrogen 36 mg/dL (9-20); Calcium 10.3 mg/dL (8.4-10.2); Hemolysis Index 11
[2018-07-31 04:20] LABS: Hematocrit 33.2 % (35.5-45.6); Hemoglobin 10.6 gm/dl (11.8-15.2)
[2018-07-31] MEDS: SOLU-Medrol IV SCH ×3 (06:46→21:43)
[2018-07-31] MEDS: VANCOMYCIN 1,250 MG in NACL 0.9% 250ML 250 ML IV SCH ×2 (06:46→21:49)
[2018-07-31] MEDS: BROVANA NEBU IH SCH ×2 (07:29→20:27)
[2018-07-31] MEDS: PULMICORT IH SCH ×2 (07:29→20:27)
[2018-07-31] MEDS ORDERED: LASIX IV ONE (09:05)
--- NOTE | 2018-07-31 09:20 | Progress Note ---
Assessment and Plan Acute hypoxemic respiratory failure, on mechanical ventilatory support. Atrial fibrillation with rapid ventricular response, now sinus. 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 Elevated D-dimer. Leukocytosis. Sepsis Chronic obstructive lung disease-acute exacerbation. Hypertension. Peripheral vascular disease. Mixed acidosis, respiratory and metabolic. Acute kidney injury. Lactic acidosis. Elevated BNP level of 3913. History of hypertension. History of arthritis. Not tolerating SBT this morning, CXR shows pulmonary edema and effusion. Will initiate gentle diuresis, while monitoring renal function, hemodynamics and electrolyte profile. Place back on full support for today - Daily SAT and SBTas tolerated - VAP bundle addressed - titrate sedation for RASS 0 to -1 - continue enteric nutrition as tolerated - continue supplemental oxygen to keep sats > 90% - aspiration precautions - continue bronchodilators with pulmonary hygiene per RT -Therapeutic anticoagulation -Stress ulcer prophylaxis -Antibiotics to complete course -Mobility for pressure ulcer prevention FULL CODE CONDITION: CRITICAL PROGNOSIS: GUARDED The high probability of a clinically significant, sudden or life-threatening deterioration of the [respiratory, cardiovascular, renal] system(s) required my full and direct attention, intervention and personal management. The aggregate critical care time was [35] minutes without overlap. Time includes spent on; [x] Data Review and interpretation [x] Patient assessment and monitoring of vital signs [x] Documentation [x] Medication orders and management Subjective Date of service: 07/31/18 Principal diagnosis: AFib Interval history: Patient is seen today for: Acute hypoxemic respiratory failure on MVS; Atrial fibrillation with RVR; Possible congestive heart failure with an acute exacerbation; History of deep venous thrombosis; Elevated D-dimer. Seen and examined at bedside; 24hour events reviewed; vitals, labs, medications, chart notes reviewed; nursing and respiratory care staff consulted; no adverse overnight events reported to me; remains on MVS;currently in sinus rhythm; no emesis or overt aspiration and tolerating tube feeds; no new issues otherwise Currently on PSV trial, but tachypnic and hypertensive. In moderate respiratory distress Objective Vital Signs - 12hr 07/30/18 07/30/18 07/30/18 21:30 21:45 22:00 Temperature Pulse Rate 73 77 80 Pulse Rate [ Anterior Bilateral Throughout] Respiratory 12 12 15 Rate Respiratory Rate [Anterior Bilateral Throughout] Blood Pressure 115/57 118/59 131/60 O2 Sat by Pulse 97 92 93 Oximetry 07/30/18 07/30/18 07/30/18 22:15 22:30 22:45 Temperature Pulse Rate 83 83 84 Pulse Rate [ Anterior Bilateral Throughout] Respiratory 31 H 26 H 31 H Rate Respiratory Rate [Anterior Bilateral Throughout] Blood Pressure 138/63 135/58 144/65 O2 Sat by Pulse 93 93 93 Oximetry 07/30/18 07/30/18 07/30/18 23:00 23:16 23:30 Temperature Pulse Rate 81 86 83 Pulse Rate [ Anterior Bilateral Throughout] Respiratory 32 H 28 H 24 Rate Respiratory Rate [Anterior Bilateral Throughout] Blood Pressure 137/60 137/69 142/75 O2 Sat by Pulse 93 93 93 Oximetry 07/30/18 07/30/18 07/31/18 23:45 23:46 00:00 Temperature 99.1 F Pulse Rate 85 81 82 Pulse Rate [ Anterior Bilateral Throughout] Respiratory 29 H 27 H Rate Respiratory Rate [Anterior Bilateral Throughout] Blood Pressure 137/65 137/65 140/63 O2 Sat by Pulse 93 94 94 Oximetry 07/31/18 07/31/18 07/31/18 00:08 00:15 00:30 Temperature Pulse Rate 85 85 85 Pulse Rate [ Anterior Bilateral Throughout] Respiratory 10 L 31 H 34 H Rate Respiratory Rate [Anterior Bilateral Throughout] Blood Pressure 140/63 139/67 144/69 O2 Sat by Pulse 94 94 93 Oximetry 07/31/18 07/31/18 07/31/18 00:46 01:00 01:16 Temperature Pulse Rate 85 86 91 H Pulse Rate [ Anterior Bilateral Throughout] Respiratory 32 H 30 H 33 H Rate Respiratory Rate [Anterior Bilateral Throughout] Blood Pressure 140/64 145/70 136/63 O2 Sat by Pulse 94 94 94 Oximetry 07/31/18 07/31/18 07/31/18 01:30 01:46 02:00 Temperature Pulse Rate 81 93 H 89 Pulse Rate [ Anterior Bilateral Throughout] Respiratory 22 33 H 30 H Rate Respiratory Rate [Anterior Bilateral Throughout] Blood Pressure 141/65 138/64 138/64 O2 Sat by Pulse 94 94 94 Oximetry 07/31/18 07/31/18 07/31/18 02:15 02:30 02:46 Temperature Pulse Rate 90 94 H 81 Pulse Rate [ Anterior Bilateral Throughout] Respiratory 32 H 33 H 24 Rate Respiratory Rate [Anterior Bilateral Throughout] Blood Pressure 136/64 147/65 128/61 O2 Sat by Pulse 94 94 94 Oximetry 07/31/18 07/31/18 07/31/18 02:59 03:00 03:15 Temperature Pulse Rate 81 76 83 Pulse Rate [ Anterior Bilateral Throughout] Respiratory 18 20 Rate Respiratory Rate [Anterior Bilateral Throughout] Blood Pressure 128/61 129/61 126/65 O2 Sat by Pulse 95 95 Oximetry 07/31/18 07/31/18 07/31/18 03:30 03:45 04:00 Temperature 99.4 F Pulse Rate 81 77 76 Pulse Rate [ Anterior Bilateral Throughout] Respiratory 20 20 20 Rate Respiratory Rate [Anterior Bilateral Throughout] Blood Pressure 127/60 122/60 126/64 O2 Sat by Pulse 93 94 94 Oximetry 07/31/18 07/31/18 07/31/18 04:15 04:30 04:42 Temperature Pulse Rate 74 76 73 Pulse Rate [ Anterior Bilateral Throughout] Respiratory 19 21 Rate Respiratory Rate [Anterior Bilateral Throughout] Blood Pressure 120/59 124/62 124/62 O2 Sat by Pulse 94 94 94 Oximetry 07/31/18 07/31/18 07/31/18 04:45 05:00 05:15 Temperature Pulse Rate 77 75 75 Pulse Rate [ Anterior Bilateral Throughout] Respiratory 20 18 18 Rate Respiratory Rate [Anterior Bilateral Throughout] Blood Pressure 127/68 126/64 117/63 O2 Sat by Pulse 95 94 94 Oximetry 07/31/18 07/31/18 07/31/18 05:30 05:45 06:00 Temperature Pulse Rate 70 74 74 Pulse Rate [ Anterior Bilateral Throughout] Respiratory 18 19 21 Rate Respiratory Rate [Anterior Bilateral Throughout] Blood Pressure 125/61 122/62 126/62 O2 Sat by Pulse 94 94 94 Oximetry 07/31/18 07/31/18 07/31/18 06:15 06:30 06:45 Temperature Pulse Rate 76 78 77 Pulse Rate [ Anterior Bilateral Throughout] Respiratory 20 16 25 H Rate Respiratory Rate [Anterior Bilateral Throughout] Blood Pressure 132/67 133/72 143/68 O2 Sat by Pulse 95 94 95 Oximetry 07/31/18 07/31/18 07/31/18 07:00 07:13 07:16 Temperature Pulse Rate 86 83 83 Pulse Rate [ Anterior Bilateral Throughout] Respiratory 33 H 34 H Rate Respiratory Rate [Anterior Bilateral Throughout] Blood Pressure 153/73 147/71 147/71 O2 Sat by Pulse 94 94 94 Oximetry 07/31/18 07/31/18 07:29 08:00 Temperature 99 F Pulse Rate Pulse Rate [ 83 Anterior Bilateral Throughout] Respiratory Rate Respiratory 15 Rate [Anterior Bilateral Throughout] Blood Pressure O2 Sat by Pulse Oximetry Constitutional: appears uncomfortable, other (elderly looking CM, normocephalic and atraumatic with mildly increased respiratory effort) Eyes: non-icteric ENT: oropharynx moist, other (ETT 23 cm SUHAS) Neck: supple, no lymphadenopathy, no JVD, other (No thyromegaly) Effort: mildly labored Ascultation: Bilateral: diminished breath sounds, rhonchi Percussion: Bilateral: not dull Cardiovascular: regular rate and rhythm, other (+ systolic murmur) Gastrointestinal: hypoactive bowel sounds, soft, non-tender, non-distended, other (No palpable HSM) Integumentary: rash, other (poor turgor) Extremities: no cyanosis, pink and warm, pulses normal, no ischemia or petechiae Neurologic: non-focal exam, pupils equal and round, other (awake, alert, moves lower extremities) Psychiatric: other (unable to assess) CBC and BMP: 07/31/18 03:14 07/31/18 03:14 ABG, PT/INR, D-dimer: ABG POC ABG pH 7.331 (7.35-7.45) L 07/31/18 04:55 POC ABG pCO2 67.1 (35-45) H 07/31/18 04:55 POC ABG pO2 87 (80-105) 07/31/18 04:55 POC ABG HCO3 35.4 07/31/18 04:55 POC ABG Total CO2 37 07/31/18 04:55 POC ABG O2 Sat 95 07/31/18 04:55 PT/INR, D-dimer PT 16.0 Sec. (12.2-14.9) H 07/27/18 17:09 INR 1.24 (0.87-1.13) H 07/27/18 17:09 D-Dimer 798.17 ng/mlDDU (0-234) H 07/27/18 15:52 Abnormal lab findings: Abnormal Labs 07/27/18 07/27/18 07/27/18 12:59 12:59 12:59 WBC 15.8 H RBC Hgb Hct MCV 104 H MCH 34 H RDW 16.3 H Seg Neuts % (Manual) 88.0 H Lymphocytes % (Manual) 3.0 L Seg Neutrophils # Man 13.9 H Lymphocytes # (Manual) 0.5 L PT 17.0 H INR 1.34 H D-Dimer Heparin Anti-Xa Level POC ABG pH POC ABG pCO2 POC ABG pO2 Sodium Potassium Chloride Carbon Dioxide 21 L BUN 38 H Creatinine 1.6 H Glucose POC Glucose Lactic Acid Calcium Phosphorus Total Bilirubin 1.30 H NT-Pro-B Natriuret Pep 3913 H Total Protein 6.2 L Albumin 3.6 L Urine WBC (Auto) Urine Creatinine 07/27/18 07/27/18 07/27/18 15:52 16:12 17:09 WBC RBC Hgb Hct MCV MCH RDW Seg Neuts % (Manual) Lymphocytes % (Manual) Seg Neutrophils # Man Lymphocytes # (Manual) PT 16.0 H INR 1.24 H D-Dimer 798.17 H Heparin Anti-Xa Level POC ABG pH POC ABG pCO2 POC ABG pO2 Sodium Potassium Chloride Carbon Dioxide BUN Creatinine Glucose POC Glucose Lactic Acid 5.00 H* Calcium Phosphorus Total Bilirubin NT-Pro-B Natriuret Pep Total Protein Albumin Urine WBC (Auto) Urine Creatinine 07/27/18 07/27/18 07/27/18 17:59 18:07 21:31 WBC RBC Hgb Hct MCV MCH RDW Seg Neuts % (Manual) Lymphocytes % (Manual) Seg Neutrophils # Man Lymphocytes # (Manual) PT INR D-Dimer Heparin Anti-Xa Level POC ABG pH 7.344 L POC ABG pCO2 POC ABG pO2 36 L Sodium Potassium Chloride Carbon Dioxide BUN Creatinine Glucose POC Glucose Lactic Acid 5.20 H* 5.00 H* Calcium Phosphorus Total Bilirubin NT-Pro-B Natriuret Pep Total Protein Albumin Urine WBC (Auto) Urine Creatinine 07/27/18 07/27/18 07/27/18 21:57 22:42 23:26 WBC RBC Hgb Hct MCV MCH RDW Seg Neuts % (Manual) Lymphocytes % (Manual) Seg Neutrophils # Man Lymphocytes # (Manual) PT INR D-Dimer Heparin Anti-Xa Level POC ABG pH 7.199 L POC ABG pCO2 62.0 H POC ABG pO2 Sodium Potassium Chloride Carbon Dioxide BUN Creatinine Glucose POC Glucose Lactic Acid 4.70 H* 5.00 H* Calcium Phosphorus Total Bilirubin NT-Pro-B Natriuret Pep Total Protein Albumin Urine WBC (Auto) Urine Creatinine 07/28/18 07/28/18 07/28/18 00:45 05:40 05:58 WBC RBC Hgb Hct MCV MCH RDW Seg Neuts % (Manual) Lymphocytes % (Manual) Seg Neutrophils # Man Lymphocytes # (Manual) PT INR D-Dimer Heparin Anti-Xa Level 0.11 L POC ABG pH 7.186 L POC ABG pCO2 60.1 H POC ABG pO2 68 L Sodium Potassium Chloride Carbon Dioxide BUN Creatinine Glucose POC Glucose Lactic Acid 4.70 H* Calcium Phosphorus Total Bilirubin NT-Pro-B Natriuret Pep Total Protein Albumin Urine WBC (Auto) Urine Creatinine 07/28/18 07/28/18 07/28/18 06:01 06:01 07:19 WBC 12.5 H RBC 3.51 L Hgb 11.5 L Hct MCV 104 H MCH 33 H RDW 16.6 H Seg Neuts % (Manual) Lymphocytes % (Manual) Seg Neutrophils # Man Lymphocytes # (Manual) PT INR D-Dimer Heparin Anti-Xa Level 0.14 L POC ABG pH POC ABG pCO2 POC ABG pO2 Sodium 135 L Potassium 5.1 H Chloride 95.0 L Carbon Dioxide 21 L BUN 54 H Creatinine 2.6 H D Glucose POC Glucose Lactic Acid Calcium Phosphorus Total Bilirubin NT-Pro-B Natriuret Pep Total Protein Albumin Urine WBC (Auto) Urine Creatinine 07/28/18 07/28/18 07/28/18 07:19 09:20 11:06 WBC RBC Hgb Hct MCV MCH RDW Seg Neuts % (Manual) Lymphocytes % (Manual) Seg Neutrophils # Man Lymphocytes # (Manual) PT INR D-Dimer Heparin Anti-Xa Level POC ABG pH 7.266 L POC ABG pCO2 49.7 H POC ABG pO2 74 L Sodium Potassium Chloride Carbon Dioxide BUN Creatinine Glucose POC Glucose Lactic Acid 4.00 H* 3.90 H* Calcium Phosphorus Total Bilirubin NT-Pro-B Natriuret Pep Total Protein Albumin Urine WBC (Auto) Urine Creatinine 07/28/18 07/28/18 07/28/18 15:06 20:45 23:36 WBC RBC Hgb Hct MCV MCH RDW Seg Neuts % (Manual) Lymphocytes % (Manual) Seg Neutrophils # Man Lymphocytes # (Manual) PT INR D-Dimer Heparin Anti-Xa Level 0.15 L POC ABG pH POC ABG pCO2 POC ABG pO2 Sodium 134 L Potassium 5.2 H Chloride Carbon Dioxide BUN 58 H Creatinine 2.1 H Glucose 110 H POC Glucose 125 H Lactic Acid Calcium Phosphorus Total Bilirubin NT-Pro-B Natriuret Pep Total Protein Albumin Urine WBC (Auto) Urine Creatinine 07/29/18 07/29/18 07/29/18 01:12 04:21 04:21 WBC RBC 3.21 L Hgb 10.8 L Hct 33.0 L MCV 103 H MCH 34 H RDW 16.4 H Seg Neuts % (Manual) Lymphocytes % (Manual) 11.0 L Seg Neutrophils # Man Lymphocytes # (Manual) 1.0 L PT INR D-Dimer Heparin Anti-Xa Level 0.21 L POC ABG pH POC ABG pCO2 POC ABG pO2 Sodium Potassium Chloride Carbon Dioxide BUN 48 H Creatinine 1.6 H Glucose 166 H POC Glucose Lactic Acid Calcium Phosphorus Total Bilirubin NT-Pro-B Natriuret Pep Total Protein Albumin Urine WBC (Auto) Urine Creatinine 07/29/18 07/29/18 07/29/18 05:19 08:16 09:24 WBC RBC Hgb Hct MCV MCH RDW Seg Neuts % (Manual) Lymphocytes % (Manual) Seg Neutrophils # Man Lymphocytes # (Manual) PT INR D-Dimer Heparin Anti-Xa Level 0.25 L POC ABG pH POC ABG pCO2 POC ABG pO2 Sodium Potassium Chloride Carbon Dioxide BUN Creatinine Glucose POC Glucose 181 H Lactic Acid Calcium Phosphorus Total Bilirubin NT-Pro-B Natriuret Pep Total Protein Albumin Urine WBC (Auto) 29.0 H Urine Creatinine 07/29/18 07/29/18 07/29/18 09:24 10:00 15:03 WBC RBC Hgb Hct MCV MCH RDW Seg Neuts % (Manual) Lymphocytes % (Manual) Seg Neutrophils # Man Lymphocytes # (Manual) PT INR D-Dimer Heparin Anti-Xa Level POC ABG pH POC ABG pCO2 POC ABG pO2 Sodium Potassium Chloride Carbon Dioxide BUN Creatinine Glucose POC Glucose 195 H 167 H Lactic Acid Calcium Phosphorus Total Bilirubin NT-Pro-B Natriuret Pep Total Protein Albumin Urine WBC (Auto) Urine Creatinine 72.3 H 07/29/18 07/29/18 07/30/18 17:51 21:32 01:38 WBC RBC Hgb Hct MCV MCH RDW Seg Neuts % (Manual) Lymphocytes % (Manual) Seg Neutrophils # Man Lymphocytes # (Manual) PT INR D-Dimer Heparin Anti-Xa Level POC ABG pH POC ABG pCO2 POC ABG pO2 Sodium Potassium Chloride Carbon Dioxide BUN Creatinine Glucose POC Glucose 167 H 217 H 194 H Lactic Acid Calcium Phosphorus Total Bilirubin NT-Pro-B Natriuret Pep Total Protein Albumin Urine WBC (Auto) Urine Creatinine 07/30/18 07/30/18 07/30/18 03:21 05:13 10:18 WBC RBC Hgb Hct MCV MCH RDW Seg Neuts % (Manual) Lymphocytes % (Manual) Seg Neutrophils # Man Lymphocytes # (Manual) PT INR D-Dimer Heparin Anti-Xa Level POC ABG pH POC ABG pCO2 50.3 H POC ABG pO2 78 L Sodium Potassium Chloride Carbon Dioxide BUN 41 H Creatinine Glucose 202 H POC Glucose 151 H Lactic Acid Calcium Phosphorus Total Bilirubin NT-Pro-B Natriuret Pep Total Protein Albumin Urine WBC (Auto) Urine Creatinine 07/30/18 07/30/18 07/30/18 11:29 16:28 18:12 WBC RBC Hgb Hct MCV MCH RDW Seg Neuts % (Manual) Lymphocytes % (Manual) Seg Neutrophils # Man Lymphocytes # (Manual) PT INR D-Dimer Heparin Anti-Xa Level POC ABG pH 7.326 L POC ABG pCO2 53.2 H POC ABG pO2 70 L Sodium Potassium Chloride Carbon Dioxide BUN Creatinine Glucose POC Glucose 247 H 212 H Lactic Acid Calcium Phosphorus Total Bilirubin NT-Pro-B Natriuret Pep Total Protein Albumin Urine WBC (Auto) Urine Creatinine 07/30/18 07/30/18 07/31/18 20:08 21:52 01:59 WBC RBC Hgb Hct MCV MCH RDW Seg Neuts % (Manual) Lymphocytes % (Manual) Seg Neutrophils # Man Lymphocytes # (Manual) PT INR D-Dimer Heparin Anti-Xa Level POC ABG pH POC ABG pCO2 POC ABG pO2 Sodium Potassium Chloride Carbon Dioxide BUN Creatinine Glucose POC Glucose 205 H 215 H 242 H Lactic Acid Calcium Phosphorus Total Bilirubin NT-Pro-B Natriuret Pep Total Protein Albumin Urine WBC (Auto) Urine Creatinine 07/31/18 07/31/18 07/31/18 03:14 03:14 04:55 WBC RBC Hgb 10.6 L Hct 33.2 L MCV MCH RDW Seg Neuts % (Manual) Lymphocytes % (Manual) Seg Neutrophils # Man Lymphocytes # (Manual) PT INR D-Dimer Heparin Anti-Xa Level POC ABG pH 7.331 L POC ABG pCO2 67.1 H POC ABG pO2 Sodium Potassium Chloride Carbon Dioxide BUN 36 H Creatinine 0.7 L Glucose 242 H POC Glucose Lactic Acid Calcium 10.3 H Phosphorus 2.30 L Total Bilirubin NT-Pro-B Natriuret Pep Total Protein Albumin Urine WBC (Auto) Urine Creatinine 07/31/18 05:37 WBC RBC Hgb Hct MCV MCH RDW Seg Neuts % (Manual) Lymphocytes % (Manual) Seg Neutrophils # Man Lymphocytes # (Manual) PT INR D-Dimer Heparin Anti-Xa Level POC ABG pH POC ABG pCO2 POC ABG pO2 Sodium Potassium Chloride Carbon Dioxide BUN Creatinine Glucose POC Glucose 193 H Lactic Acid Calcium Phosphorus Total Bilirubin NT-Pro-B Natriuret Pep Total Protein Albumin Urine WBC (Auto) Urine Creatinine Allied health notes reviewed: RT
[2018-07-31] MEDS: PRAVACHOL PO SCH (11:00)
--- NOTE | 2018-07-31 11:31 | Progress Note ---
Assessment and Plan Assessment and plan: Sepsis. Continue IV antibiotics and follow-up blood cultures. Patient with lactic acid levels in the 5 range but now trending downward. Left lower lobe pneumonia. Continue antibiotics and follow chest x-ray. Acute hypoxemic respiratory failure. Etiology secondary to above. Continue on mechanical ventilation and weaning per pulmonary. Follow-up serial chest x-ray and ABGs. Atrial fibrillation. Continue amiodarone and diltiazem. Cardiology following. Check echocardiogram. Acute renal failure. Etiology likely secondary to sepsis/ATN. Renal ultrasound unremarkable. COPD exacerbation. Continue bronchodilators/nebulizers. IV steroids. Hypertension. Resume antihypertensive medications as needed. Hyperlipidemia. Peripheral vascular disease. The high probability of a clinically significant, sudden or life threatening deterioration of the [respiratory] system(s) required my full and direct attention, intervention and personal management. The aggregate critical care time was [32] minutes. This time is in addition to time spent performing reported procedures but includes the following: [x] Data Review and interpretation [x] Patient assessment and monitoring of vital signs [x] Documentation [x] Medication orders and management History Interval history: 73 YO Male with H/O COPD, PVD, HTN, HLD, Seizure Disorder, Skin Cancer presents to ED for evaluation. Pt states that he has experienced shortness and chest palpitations over the past 2 days with worsening symptoms over the past 1 day. Pt acknowledges decreased exercise tolerance, as well as dyspnea on exertion. Pt was seen and evaluated by his assistant manager of operations today and was sent to [facility] ED for further care and evaluation. Pt denies fever, chills, leg swelling, calf pain, CP with deep breathing, hemoptysis, Prolonged air/car travel, or immobility, Back Pain, Syncope, Lightheadedness, recent ill contacts, unintentional weight loss, night sweats, or bone pain. Pt seen and evaluated in ED and found to have Atrial Fib with RVR refractory to cardizem drip, but improved with Amiodarone Drip, Acute Hypoxemic Respiratory Failure, SIRS. Pt admitted to ICU. The patient later after admission had further decompensation with respiratory distress. Patient reportedly was satting 60-70% on a nonrebreather and had to be emergently intubated. The patient remains intubated on mechanical ventilation and to prevent drip. Patient also on amiodarone drip. Hospitalist Physical - Constitutional Vitals: Temp Pulse Resp BP Pulse Ox 99 F 76 24 143/71 95 07/31/18 08:00 07/31/18 10:15 07/31/18 10:15 07/31/18 10:15 07/31/18 10:15 General appearance: Present: no acute distress, other (intubated on mechanical ventilation) - EENT Eyes: Present: PERRL, EOM intact ENT: hearing intact, clear oral mucosa, dentition normal - Neck Neck: Present: supple, normal ROM - Respiratory Respiratory effort: normal Respiratory: bilateral: CTA - Cardiovascular Rhythm: regular Heart Sounds: Present: S1 & S2. Absent: gallop, rub - Extremities Extremities: no ischemia, No edema, Full ROM - Abdominal General gastrointestinal: soft, non-tender, non-distended, normal bowel sounds - Integumentary Integumentary: Present: clear, warm, dry - Neurologic Neurologic: CNII-XII intact, moves all extremities Results - Labs CBC & Chem 7: 07/31/18 03:14 07/31/18 03:14 Labs: Laboratory Last Values WBC 9.0 K/mm3 (4.5-11.0) 07/29/18 04:21 RBC 3.21 M/mm3 (3.65-5.03) L 07/29/18 04:21 Hgb 10.6 gm/dl (11.8-15.2) L 07/31/18 03:14 Hct 33.2 % (35.5-45.6) L 07/31/18 03:14 MCV 103 fl (84-94) H 07/29/18 04:21 MCH 34 pg (28-32) H 07/29/18 04:21 MCHC 33 % (32-34) 07/29/18 04:21 RDW 16.4 % (13.2-15.2) H 07/29/18 04:21 Plt Count 235 K/mm3 (140-440) 07/31/18 03:14 Add Manual Diff Complete 07/29/18 04:21 Total Counted 100 07/29/18 04:21 Seg Neutrophils % Application Development Intern 07/29/18 04:21 Seg Neuts % (Manual) 59.0 % (40.0-70.0) 07/29/18 04:21 Band Neutrophils % 22.0 % 07/29/18 04:21 Lymphocytes % (Manual) 11.0 % (13.4-35.0) L 07/29/18 04:21 Reactive Lymphs % (Man) 0 % 07/29/18 04:21 Monocytes % (Manual) 6.0 % (0.0-7.3) 07/29/18 04:21 Eosinophils % (Manual) 0 % (0.0-4.3) 07/29/18 04:21 Basophils % (Manual) 0 % (0.0-1.8) 07/29/18 04:21 Metamyelocytes % 0 % 07/29/18 04:21 Myelocytes % 2.0 % 07/29/18 04:21 Promyelocytes % 0 % 07/29/18 04:21 Blast Cells % 0 % 07/29/18 04:21 Nucleated RBC % Not Reportable 07/29/18 04:21 Seg Neutrophils # Man 5.3 K/mm3 (1.8-7.7) 07/29/18 04:21 Band Neutrophils # 2.0 K/mm3 07/29/18 04:21 Lymphocytes # (Manual) 1.0 K/mm3 (1.2-5.4) L 07/29/18 04:21 Abs React Lymphs (Man) 0.0 K/mm3 07/29/18 04:21 Monocytes # (Manual) 0.5 K/mm3 (0.0-0.8) 07/29/18 04:21 Eosinophils # (Manual) 0.0 K/mm3 (0.0-0.4) 07/29/18 04:21 Basophils # (Manual) 0.0 K/mm3 (0.0-0.1) 07/29/18 04:21 Metamyelocytes # 0.0 K/mm3 07/29/18 04:21 Myelocytes # 0.2 K/mm3 07/29/18 04:21 Promyelocytes # 0.0 K/mm3 07/29/18 04:21 Blast Cells # 0.0 K/mm3 07/29/18 04:21 Pathologist Review 07/28/18 06:01 WBC Morphology Not Reportable 07/29/18 04:21 Hypersegmented Neuts Not Reportable 07/29/18 04:21 Hyposegmented Neuts Not Reportable 07/29/18 04:21 Hypogranular Neuts Not Reportable 07/29/18 04:21 Smudge Cells Not Reportable 07/29/18 04:21 Toxic Granulation Not Reportable 07/29/18 04:21 Toxic Vacuolation Not Reportable 07/29/18 04:21 Dohle Bodies 1+ 07/29/18 04:21 Pelger-Huet Anomaly Not Reportable 07/29/18 04:21 Janiya Rods Not Reportable 07/29/18 04:21 Platelet Estimate Appears normal 07/29/18 04:21 Clumped Platelets Not Reportable 07/29/18 04:21 Plt Clumps, EDTA Not Reportable 07/29/18 04:21 Large Platelets Not Reportable 07/29/18 04:21 Giant Platelets Not Reportable 07/29/18 04:21 Platelet Satelliting Not Reportable 07/29/18 04:21 Plt Morphology Comment Not Reportable 07/29/18 04:21 RBC Morphology Not Reportable 07/29/18 04:21 Dimorphic RBCs Not Reportable 07/29/18 04:21 Polychromasia Not Reportable 07/29/18 04:21 Hypochromasia Few 07/29/18 04:21 Poikilocytosis Not Reportable 07/29/18 04:21 Anisocytosis 1+ 07/29/18 04:21 Microcytosis Not Reportable 07/29/18 04:21 Macrocytosis Not Reportable 07/29/18 04:21 Spherocytes Not Reportable 07/29/18 04:21 Pappenheimer Bodies Not Reportable 07/29/18 04:21 Sickle Cells Not Reportable 07/29/18 04:21 Target Cells Not Reportable 07/29/18 04:21 Tear Drop Cells Not Reportable 07/29/18 04:21 Ovalocytes Not Reportable 07/29/18 04:21 Helmet Cells Not Reportable 07/29/18 04:21 Lr-[place] Bodies Not Reportable 07/29/18 04:21 Phillips Rings Not Reportable 07/29/18 04:21 Armando Cells Not Reportable 07/29/18 04:21 Bite Cells Not Reportable 07/29/18 04:21 Crenated Cell Not Reportable 07/29/18 04:21 Elliptocytes Not Reportable 07/29/18 04:21 Acanthocytes (Spur) Not Reportable 07/29/18 04:21 Rouleaux Not Reportable 07/29/18 04:21 Hemoglobin C Crystals Not Reportable 07/29/18 04:21 Schistocytes Not Reportable 07/29/18 04:21 Malaria parasites Not Reportable 07/29/18 04:21 Jigar Bodies Not Reportable 07/29/18 04:21 Hem Pathologist Commnt No 07/29/18 04:21 PT 16.0 Sec. (12.2-14.9) H 07/27/18 17:09 INR 1.24 (0.87-1.13) H 07/27/18 17:09 APTT 31.9 Sec. (24.2-36.6) 07/27/18 17:09 D-Dimer 798.17 ng/mlDDU (0-234) H 07/27/18 15:52 Heparin Anti-Xa Level 0.34 U.I./ml (0.3-0.7) 07/30/18 09:25 POC ABG pH 7.331 (7.35-7.45) L 07/31/18 04:55 POC ABG pCO2 67.1 (35-45) H 07/31/18 04:55 POC ABG pO2 87 (80-105) 07/31/18 04:55 POC ABG HCO3 35.4 07/31/18 04:55 POC ABG Total CO2 37 07/31/18 04:55 POC ABG O2 Sat 95 07/31/18 04:55 POC ABG Base Excess 10 07/31/18 04:55 FiO2 55 % 07/31/18 04:55 Sodium 140 mmol/L (137-145) 07/31/18 03:14 Potassium 4.9 mmol/L (3.6-5.0) 07/31/18 03:14 Chloride 103.2 mmol/L (98-107) 07/31/18 03:14 Carbon Dioxide 28 mmol/L (22-30) 07/31/18 03:14 Anion Gap 14 mmol/L 07/31/18 03:14 BUN 36 mg/dL (9-20) H 07/31/18 03:14 Creatinine 0.7 mg/dL (0.8-1.5) L 07/31/18 03:14 Estimated GFR > 60 ml/min 07/31/18 03:14 BUN/Creatinine Ratio 51 % 07/31/18 03:14 Glucose 242 mg/dL (75-100) H 07/31/18 03:14 POC Glucose 247 (70-105) H 07/31/18 10:08 Lactic Acid 3.90 mmol/L (0.7-2.0) H* 07/28/18 09:20 Calcium 10.3 mg/dL (8.4-10.2) H 07/31/18 03:14 Phosphorus 2.30 mg/dL (2.5-4.5) L 07/31/18 03:14 Magnesium 2.20 mg/dL (1.7-2.3) 07/31/18 03:14 Total Bilirubin 1.30 mg/dL (0.1-1.2) H 07/27/18 12:59 AST 15 units/L (5-40) 07/27/18 12:59 ALT 16 units/L (7-56) 07/27/18 12:59 Alkaline Phosphatase 62 units/L (35-129) 07/27/18 12:59 Troponin T < 0.010 ng/mL (0.00-0.029) 07/27/18 12:59 NT-Pro-B Natriuret Pep 3913 pg/mL (0-900) H 07/27/18 12:59 Total Protein 6.2 g/dL (6.3-8.2) L 07/27/18 12:59 Albumin 3.6 g/dL (3.9-5) L 07/27/18 12:59 Albumin/Globulin Ratio 1.4 % 07/27/18 12:59 TSH 1.180 mlU/mL (0.270-4.200) 07/27/18 15:52 Free T4 1.28 ng/dL (0.76-1.46) 07/27/18 15:52 Urine Color Yellow (Yellow) 07/29/18 09:24 Urine Turbidity Cloudy (Clear) 07/29/18 09:24 Urine pH 5.0 (5.0-7.0) 07/29/18 09:24 Ur Specific [place] 1.017 (1.003-1.030) 07/29/18 09:24 Urine Protein 30 mg/dl mg/dL (Negative) 07/29/18 09:24 Urine Glucose (UA) Neg mg/dL (Negative) 07/29/18 09:24 Urine Ketones Neg mg/dL (Negative) 07/29/18 09:24 Urine Blood Mod (Negative) 07/29/18 09:24 Urine Nitrite Neg (Negative) 07/29/18 09:24 Urine Bilirubin Neg (Negative) 07/29/18 09:24 Urine Urobilinogen < 2.0 mg/dL (<2.0) 07/29/18 09:24 Ur Leukocyte Esterase Mod (Negative) 07/29/18 09:24 Urine WBC (Auto) 29.0 /HPF (0.0-6.0) H 07/29/18 09:24 Urine RBC (Auto) 7.0 /HPF (0.0-6.0) 07/29/18 09:24 U Epithel Cells (Auto) 2.0 /HPF (0-13.0) 07/29/18 09:24 Urine Bacteria (Auto) 1+ /HPF (Negative) 07/29/18 09:24 Urine Mucus Few /HPF 07/29/18 09:24 Urine Yeast (Budding) 1+ /HPF 07/29/18 09:24 Urine Creatinine 72.3 mg/dL (0.1-20.0) H 07/29/18 09:24 Urine Sodium 12 mmol/L 07/29/18 09:24 Random Vancomycin 9.2 ug/mL (0-40.0) 07/29/18 04:21 Nutrition/Malnutrition Assess - Dietary Evaluation Nutrition/Malnutrition Findings: Nutrition Notes Start: 07/28/18 10:54 Freq: Status: Active Protocol: Document 07/29/18 11:56 TW (Rec: 07/29/18 12:47 TW [id number]) Co-Sign 07/29/18 11:56 OL Nutrition Notes Need for Assessment generated from: MD Order Initial or Follow up Reassessment Current Diagnoses Acute Kidney Injury COPD Sepsis Hypertension Heart Failure Respiratory Failure Other Pertinent Diagnosis Hx of Skin Cancer Current Diet Nepro at 50ml/hr Labs/Tests BUN: 60 Cr: 1.6 B Medications Propofol at 10.124 ml/hr (267 kcal) Solu-Medrol Height 5 ft 8 in Weight 88.1 kg [place] Body Weight (lbs) 154.0 BMI 29.5 Subjective/Other Information Observed Nepro at 20ml/hr. Per RN, pt tolerating TF well. Pt . still on vent. Percent of energy/protein needs met: 45%/38% Burn Absent Trauma Absent #1 Nutrition Diagnoses Inadequate oral intake Diagnosis Progress(for reassessment Continues documentation) Is patient on ventilator? Yes Is Patient Ambulatory and/or Out of Bed No REE-([facility]-confined to bed) [phone] Calculation Used for Recommendations [facility] Additional Notes Fluid needs: 1ml/kcal Protein needs (1.2-2 kg/g) 106 -176 g/day Nutrition Intervention Change Diet Order: TF Nutrition Support: Nepro at 45 ml/hr Water Flush: 200ml q4h. Kcal 1,944 Protein (gm) 87 Fluid (mL) 785 Goal #1 TF tolerance and rate Goal #2 Meet at least 80% of kcal needs and 80-100% of protein needs. Follow-Up By: 08/01/18 Additional Comments F/U for TF to goal
--- NOTE | 2018-07-31 11:47 | Progress Note ---
Assessment and Plan clinically improved afib w/rvr --> sr cont amio/cardizem/heparin tte reviewed - nl lv fxn vent wean per pulm discussed with family at length - Patient Problems (1) CARLEE (acute kidney injury) Current Visit: Yes Status: Acute (2) ARF (acute renal failure) with tubular necrosis Current Visit: Yes Status: Acute (3) Acidosis Current Visit: Yes Status: Acute (4) Acute respiratory failure Current Visit: Yes Status: Acute Qualifiers: Respiratory failure complication: hypoxia Qualified Code(s): J96.01 - Acute respiratory failure with hypoxia (5) Atrial fibrillation with RVR Current Visit: Yes Status: Acute (6) SIRS (systemic inflammatory response syndrome) Current Visit: Yes Status: Acute (7) COPD (chronic obstructive pulmonary disease) Current Visit: Yes Status: Chronic (8) Nonobstructive atherosclerosis of coronary artery Current Visit: Yes Status: Chronic (9) Peripheral vascular disease Current Visit: Yes Status: Chronic (10) Hypoxemia Current Visit: No Status: Acute (11) S/P vascular surgery Current Visit: No Status: Acute Subjective Date of service: 07/31/18 Principal diagnosis: AFib Interval history: intubated/sedated family at bedside Objective Vital Signs Temp Pulse Pulse Pulse Resp Resp BP 07/31/18 10:15 76 24 143/71 07/31/18 10:00 72 20 133/67 07/31/18 09:45 82 35 H 150/80 07/31/18 09:30 80 35 H 154/78 07/31/18 09:15 71 20 130/65 07/31/18 09:00 91 H 37 H 161/76 07/31/18 08:46 87 40 H 150/75 07/31/18 08:30 92 H 33 H 138/65 07/31/18 08:16 91 H 37 H 143/67 07/31/18 08:00 99 F 79 35 H 146/72 07/31/18 07:45 81 20 141/69 07/31/18 07:30 90 35 H 147/71 07/31/18 07:29 83 15 07/31/18 07:16 83 34 H 147/71 07/31/18 07:13 83 147/71 07/31/18 07:00 86 33 H 153/73 07/31/18 06:45 77 25 H 143/68 12/16/18 06:30 78 16 133/72 1618 06:15 76 20 132/67 1618 06:00 74 21 126/62 1618 05:45 74 19 122/62 16/18 05:30 70 18 125/61 1618 05:15 75 18 117/63 1618 05:00 75 18 126/64 1618 04:45 77 20 127/68 1618 04:42 73 124/62 16/18 04:30 76 21 124/62 16/18 04:15 74 19 120/59 16/18 04:00 99.4 F 76 20 126/64 1618 03:45 77 20 122/60 18 03:30 81 20 127/60 18 03:15 83 20 126/65 18 03:00 76 18 129/61 18 02:59 81 128/61 18 02:46 81 24 128/61 18 02:30 94 H 33 H 147/65 18 02:15 90 32 H 136/64 18 02:00 89 30 H 138/64 18 01:46 93 H 33 H 138/64 18 01:30 81 22 141/65 07/31/18 01:16 91 H 33 H 136/63 18 01:00 86 30 H 145/70 07/31/18 00:46 85 32 H 140/64 1618 00:30 85 34 H 144/69 1618 00:15 85 31 H 139/67 1618 00:08 85 10 L 140/63 1618 00:00 99.1 F 82 27 H 140/63 18 23:46 81 29 H 137/65 18 23:45 85 137/65 1518 23:30 83 24 142/75 18 23:16 86 28 H 137/69 18 23:00 81 32 H 137/60 18 22:45 84 31 H 144/65 18 22:30 83 26 H 135/58 1518 22:15 83 31 H 138/63 1518 22:00 80 15 131/60 15/18 21:45 77 12 118/59 15/18 21:30 73 12 115/57 15/18 21:15 75 12 118/61 15/18 21:14 82 15 1518 21:02 76 79 15 127/62 15/18 21:00 73 20 121/56 1518 20:45 74 16 121/56 15/18 20:30 77 20 121/63 15/18 20:15 76 20 120/58 1518 20:01 86 34 H 119/62 15/18 20:00 98.8 F 18 19:30 78 24 131/61 1518 19:00 79 26 H 136/66 1518 18:31 85 21 139/73 18 18:00 82 31 H 139/73 18 17:30 82 36 H 138/72 1518 17:01 90 41 H 144/66 15/18 16:30 77 36 H 141/69 15/18 16:01 84 31 H 136/65 15/18 16:00 99.3 F 75 72 22 141/69 15/18 15:31 75 22 122/57 18 15:01 76 33 H 137/69 15/18 14:30 71 21 130/62 1518 14:01 75 28 H 130/61 18 13:30 69 103/67 1518 13:15 79 143/66 18 13:00 69 30 H 122/64 15/18 12:30 71 30 H 121/64 18 12:00 99.6 F 74 72 22 124/67 Pulse Ox 07/31/18 10:15 95 18 10:00 95 18 09:45 95 16/18 09:30 95 1618 09:15 95 18 09:00 95 18 08:46 95 18 08:30 94 12/16/18 08:16 93 12/16/18 08:00 94 12/16/18 07:45 97 12/16/18 07:30 94 12/16/18 07:29 12/16/18 07:16 94 12/16/18 07:13 94 12/16/18 07:00 94 12/16/18 06:45 95 12/16/18 06:30 94 12/16/18 06:15 95 12/16/18 06:00 94 12/16/18 05:45 94 12/16/18 05:30 94 12/16/18 05:15 94 12/16/18 05:00 94 12/16/18 04:45 95 12/16/18 04:42 94 12/16/18 04:30 94 12/16/18 04:15 94 12/16/18 04:00 94 12/16/18 03:45 94 12/16/18 03:30 93 12/16/18 03:15 95 12/16/18 03:00 95 12/16/18 02:59 12/16/18 02:46 94 12/16/18 02:30 94 12/16/18 02:15 94 12/16/18 02:00 94 12/16/18 01:46 94 12/16/18 01:30 94 12/16/18 01:16 94 12/16/18 01:00 94 12/16/18 00:46 94 12/16/18 00:30 93 12/16/18 00:15 94 12/16/18 00:08 94 12/16/18 00:00 94 12/15/18 23:46 94 12/15/18 23:45 93 12/15/18 23:30 93 12/15/18 23:16 93 12/15/18 23:00 93 12/15/18 22:45 93 12/15/18 22:30 93 12/15/18 22:15 93 12/15/18 22:00 93 12/15/18 21:45 92 12/15/18 21:30 97 12/15/18 21:15 97 12/15/18 21:14 12/15/18 21:02 93 12/15/18 21:00 94 12/15/18 20:45 95 12/15/18 20:30 94 12/15/18 20:15 94 07/30/18 20:01 94 07/30/18 20:00 07/30/18 19:30 95 07/30/18 19:00 94 07/30/18 18:31 92 07/30/18 18:00 91 07/30/18 17:30 91 07/30/18 17:01 92 07/30/18 16:30 92 07/30/18 16:01 92 07/30/18 16:00 92 07/30/18 15:31 91 07/30/18 15:01 92 07/30/18 14:30 92 07/30/18 14:01 92 07/30/18 13:30 90 07/30/18 13:15 93 07/30/18 13:00 93 07/30/18 12:30 92 07/30/18 12:00 92 - Physical Examination General: Other (intubated, sedated) HEENT: Positive: Normocephaly, Mucus Membranes Moist Neck: Positive: neck supple, trachea midline Neuro: Positive: Other (intubated, sedated ) Skin: Negative: Rash, Wound Musculoskeletal: No Pain Extremities: Absent: edema - Labs and Meds CBC 07/31/18 Range/Units 03:14 Hgb 10.6 L (11.8-15.2) gm/dl Hct 33.2 L (35.5-45.6) % Plt Count 235 (140-440) K/mm3 Comprehensive Metabolic Panel 07/31/18 Range/Units 03:14 Sodium 140 (137-145) mmol/L Potassium 4.9 (3.6-5.0) mmol/L Chloride 103.2 (98-107) mmol/L Carbon Dioxide 28 (22-30) mmol/L BUN 36 H (9-20) mg/dL Creatinine 0.7 L (0.8-1.5) mg/dL Glucose 242 H (75-100) mg/dL Calcium 10.3 H (8.4-10.2) mg/dL - Imaging and Cardiology EKG: report reviewed, image reviewed Echo: report reviewed ( 07/27/2018 EF 60-65%, asymmetric septal hypertrophy, mild TR. 05/2017 showed EF 55-60%, grade 1 diastolic dysfunction, mild TR, RVSP 22mmHg. 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 Treat medically. ) - Allied health notes Allied health notes reviewed: RT
[2018-07-31] MEDS: PLAVIX PO SCH (12:21)
[2018-07-31] MEDS: CORDARONE PO SCH ×2 (12:21→21:42)
[2018-07-31] MEDS: VITAMIN B-12 PO SCH (12:22)
[2018-07-31] MEDS: ZITHROMAX 500 MG in NACL 0.9% 250ML 250 ML IV SCH (12:23)
[2018-07-31] MEDS ORDERED: LASIX ONE (14:20)
[2018-07-31] MEDS: PEPCID IV SCH ×2 (14:34→21:43)
--- NOTE | 2018-07-31 15:29 | Progress Note ---
Assessment and Plan 1. Acute kidney injury: Likely Vasomotor / hemodynamic CARLEE in the setting of A.fib with RVR. Continue IV fluids. Renal function is better. 2. FEN: Hyperkalemia, improved. Appears euvolemic. On tube feeding. Monitor. 3. A.fib: Rate controlled. Amiodarone and Heparin drip. 4. Respiratory failure: On vent. 5. Sepsis. Subjective Date of service: 07/31/18 Principal diagnosis: AFib Interval history: Patient was seen and examined at the bedside. Objective - Vital Signs Vital signs: Vital Signs - 12hr 07/31/18 07/31/18 07/31/18 03:30 03:45 04:00 Temperature 99.4 F Pulse Rate 81 77 76 Pulse Rate [ Anterior Bilateral Throughout] Respiratory 20 20 20 Rate Respiratory Rate [Anterior Bilateral Throughout] Blood Pressure 127/60 122/60 126/64 O2 Sat by Pulse 93 94 94 Oximetry 07/31/18 07/31/18 07/31/18 04:15 04:30 04:42 Temperature Pulse Rate 74 76 73 Pulse Rate [ Anterior Bilateral Throughout] Respiratory 19 21 Rate Respiratory Rate [Anterior Bilateral Throughout] Blood Pressure 120/59 124/62 124/62 O2 Sat by Pulse 94 94 94 Oximetry 07/31/18 07/31/18 07/31/18 04:45 05:00 05:15 Temperature Pulse Rate 77 75 75 Pulse Rate [ Anterior Bilateral Throughout] Respiratory 20 18 18 Rate Respiratory Rate [Anterior Bilateral Throughout] Blood Pressure 127/68 126/64 117/63 O2 Sat by Pulse 95 94 94 Oximetry 07/31/18 07/31/18 07/31/18 05:30 05:45 06:00 Temperature Pulse Rate 70 74 74 Pulse Rate [ Anterior Bilateral Throughout] Respiratory 18 19 21 Rate Respiratory Rate [Anterior Bilateral Throughout] Blood Pressure 125/61 122/62 126/62 O2 Sat by Pulse 94 94 94 Oximetry 07/31/18 07/31/18 07/31/18 06:15 06:30 06:45 Temperature Pulse Rate 76 78 77 Pulse Rate [ Anterior Bilateral Throughout] Respiratory 20 16 25 H Rate Respiratory Rate [Anterior Bilateral Throughout] Blood Pressure 132/67 133/72 143/68 O2 Sat by Pulse 95 94 95 Oximetry 07/31/18 07/31/18 07/31/18 07:00 07:13 07:16 Temperature Pulse Rate 86 83 83 Pulse Rate [ Anterior Bilateral Throughout] Respiratory 33 H 34 H Rate Respiratory Rate [Anterior Bilateral Throughout] Blood Pressure 153/73 147/71 147/71 O2 Sat by Pulse 94 94 94 Oximetry 07/31/18 07/31/18 07/31/18 07:29 07:30 07:45 Temperature Pulse Rate 90 81 Pulse Rate [ 83 Anterior Bilateral Throughout] Respiratory 35 H 20 Rate Respiratory 15 Rate [Anterior Bilateral Throughout] Blood Pressure 147/71 141/69 O2 Sat by Pulse 94 97 Oximetry 07/31/18 07/31/18 07/31/18 08:00 08:16 08:30 Temperature 99 F Pulse Rate 79 91 H 92 H Pulse Rate [ Anterior Bilateral Throughout] Respiratory 35 H 37 H 33 H Rate Respiratory Rate [Anterior Bilateral Throughout] Blood Pressure 146/72 143/67 138/65 O2 Sat by Pulse 94 93 94 Oximetry 07/31/18 07/31/18 07/31/18 08:46 09:00 09:15 Temperature Pulse Rate 87 91 H 71 Pulse Rate [ Anterior Bilateral Throughout] Respiratory 40 H 37 H 20 Rate Respiratory Rate [Anterior Bilateral Throughout] Blood Pressure 150/75 161/76 130/65 O2 Sat by Pulse 95 95 95 Oximetry 07/31/18 07/31/18 07/31/18 09:30 09:45 10:00 Temperature Pulse Rate 80 82 72 Pulse Rate [ Anterior Bilateral Throughout] Respiratory 37 H 35 H 20 Rate Respiratory Rate [Anterior Bilateral Throughout] Blood Pressure 154/78 150/80 133/67 O2 Sat by Pulse 95 95 95 Oximetry 07/31/18 07/31/18 07/31/18 10:15 10:30 10:45 Temperature Pulse Rate 76 90 80 Pulse Rate [ Anterior Bilateral Throughout] Respiratory 24 33 H 22 Rate Respiratory Rate [Anterior Bilateral Throughout] Blood Pressure 143/71 142/76 142/73 O2 Sat by Pulse 95 95 95 Oximetry 07/31/18 07/31/18 07/31/18 11:00 11:16 11:30 Temperature Pulse Rate 80 86 78 Pulse Rate [ Anterior Bilateral Throughout] Respiratory 28 H 33 H 28 H Rate Respiratory Rate [Anterior Bilateral Throughout] Blood Pressure 138/73 129/108 145/76 O2 Sat by Pulse 94 96 96 Oximetry 07/31/18 07/31/18 07/31/18 11:46 12:00 12:21 Temperature 98.7 F Pulse Rate 98 H 86 Pulse Rate [ Anterior Bilateral Throughout] Respiratory 33 H Rate Respiratory Rate [Anterior Bilateral Throughout] Blood Pressure 107/85 145/75 O2 Sat by Pulse 96 Oximetry 07/31/18 13:00 Temperature Pulse Rate 77 Pulse Rate [ Anterior Bilateral Throughout] Respiratory Rate Respiratory Rate [Anterior Bilateral Throughout] Blood Pressure 132/73 O2 Sat by Pulse 96 Oximetry - General Appearance General appearance: well-developed, appears stated age, sedated on ventilator, intubated EENT: ATNC Neck: supple Respiratory: Present: Clear to Ascultation Cardiology: regular, S1S2, no murmurs Gastrointestinal: normoactive bowel sounds, no tenderness, no distended Integumentary: no rash, warm and dry Neurologic: other (grimaces) Musculoskeletal: other (no edema) - Lab 07/31/18 03:14 07/31/18 03:14 Most recent lab results Calcium 10.3 mg/dL (8.4-10.2) H 07/31/18 03:14 Phosphorus 2.30 mg/dL (2.5-4.5) L 07/31/18 03:14 Magnesium 2.20 mg/dL (1.7-2.3) 07/31/18 03:14 Urine Creatinine 72.3 mg/dL (0.1-20.0) H 07/29/18 09:24 Urine Sodium 12 mmol/L 07/29/18 09:24 Medications & Allergies - Medications Allergies/Adverse Reactions: Allergies No Known Allergies Allergy (Verified 12/12/13 06:46) Home Medications: Home Medications Medication Instructions Recorded Confirmed Last Taken Type Pravastatin Sodium 40 mg PO DAILY 12/12/13 07/27/18 07/27/18 History Clopidogrel [Plavix] 75 mg PO DAILY #30 tablet 04/03/15 07/27/18 07/27/18 Rx amLODIPine [Norvasc] 10 mg PO DAILY #30 tablet 04/03/15 07/27/18 07/27/18 Rx Fluticasone/Salmeterol [Advair 1 puff IH BID 12/31/15 07/27/18 07/27/18 History Diskus 250-50 mcg] ALBUTEROL Inhaler (OR & NICU) 2 puff IH QID PRN 07/27/18 07/27/18 Unknown History [Proair] Aspirin [Aspirin BABY CHEW TAB] 81 mg PO DAILY 07/27/18 07/27/18 07/27/18 History Cyanocobalamin (Vitamin B-12) 2,500 mcg PO DAILY 07/27/18 07/27/18 07/27/18 History [Vitamin B12] [place]-3S/Dha/Epa/Fish Oil/D3 [Fish 1 each PO DAILY 07/27/18 07/27/18 07/27/18 History Ppe-[id number]-0-Vit D Softgel] Active Medications: Generic Name Dose Route Start Last Admin Trade Name Freq PRN Reason Stop Dose Admin Acetaminophen 650 mg 07/28/18 04:34 07/28/18 05:29 Tylenol MS 650 mg Q4H PRN Administration Fever >101 Amiodarone HCl 200 mg 07/29/18 14:00 07/31/18 12:21 Cordarone PO 200 mg BID IGNACIO Administration Lipase/Protease/Amylase 1 each 07/28/18 13:57 Pancreazchava Mccarthy 10,500 Unit FEEDTUBE PRN PRN For Clogged Feeding Tube Arformoterol Tartrate 15 mcg 07/27/18 20:00 07/31/18 07:29 Brovana Nebu IH 15 mcg Q12HRT IGNACIO Administration Budesonide 0.5 mg 07/27/18 20:00 07/31/18 07:29 Pulmicort IH 0.5 mg Q12HRT IGNACIO Administration Clopidogrel Bisulfate 75 mg 07/28/18 10:00 07/31/18 12:21 Plavix PO 75 mg DAILY IGNACIO Administration Cyanocobalamin 2,500 mcg 07/28/18 10:00 07/31/18 12:22 Vitamin B-12 PO 2,500 mcg QDAY IGNACIO Administration Diltiazem HCl 60 mg 07/27/18 18:00 07/31/18 12:21 Cardizem PO 60 mg Q6HR IGNACIO Administration Famotidine 20 mg 07/30/18 10:00 07/31/18 14:34 Pepcid IV 20 mg BID IGNACIO Administration Hydrophilic Ointment 1 applic 07/27/18 20:09 Vaseline Lip Therapy TP Q2HR PRN Dry Lips Ceftriaxone Sodium 2 gm in 100 mls @ 200 mls/hr 07/27/18 18:00 07/30/18 19:29 Rocephin/Ns 2 Gm/100 Ml IV 200 mls/hr Q24H IGNACIO Administration Protocol Heparin Sodium/Sodium Chloride 25,000 unit in 500 mls @ 24 mls/hr 07/27/18 17:00 07/31/18 02:56 Heparin/ 0.45% Nacl-25,000 Unit/500 Ml IV 1,800 units/hr TITR IGNACIO 36 mls/hr Administration Protocol 1,200 UNITS/HR Propofol 1,000 mg in 100 mls @ 2.531 mls/hr 07/27/18 21:00 07/31/18 06:46 Diprivan 10 Mg/Ml IV Infused TITR IGNACIO Titration Protocol 5 MCG/KG/MIN Azithromycin 500 mg/ Sodium 250 mls @ 250 mls/hr 07/28/18 13:00 07/31/18 12:23 Chloride IV 250 mls/hr Q24HR IGNACIO Administration Sodium Chloride 1,000 mls @ 100 mls/hr 07/28/18 22:00 07/29/18 15:29 Nacl 0.9% 1000 Ml IV 100 mls/hr DIRECT IGNACIO Administration Vancomycin HCl 1,250 mg/ 275 mls @ 166.667 mls/hr 07/30/18 10:00 07/31/18 06:46 Sodium Chloride IV 166.667 mls/hr Q18H IGNACIO Administration Insulin Human Lispro 0 unit 07/29/18 07:00 07/31/18 14:38 Humalog SUB-Q 2 unit Q4HR IGNACIO Administration Protocol Methylprednisolone Sodium Succinate 40 mg 07/28/18 14:00 07/31/18 14:33 Solu-Medrol IV 40 mg Q8HR IGNACIO Administration Multi-Ingred Cream/Lotion/Oil/Oint 1 applic 07/27/18 20:09 Artificial Tears Ophth Oint OU Q4HR PRN Dry Eye(s) Pravastatin Sodium 40 mg 07/28/18 10:00 07/31/18 11:00 Pravachol PO 40 mg DAILY IGNACIO Administration Simple Syrup 15 ml 07/28/18 13:57 Simple Syrup FEEDTUBE PRN PRN Hypoglycemia Simple Syrup 30 ml 07/28/18 13:57 Simple Syrup FEEDTUBE PRN PRN Hypoglycemia Sodium Bicarbonate 325 mg 07/28/18 13:57 Sodium Bicarbonate FEEDTUBE PRN PRN For Clogged Feeding Tube Sodium Chloride 10 ml 07/27/18 22:00 07/31/18 14:34 Sodium Chloride Flush Syringe 10 Ml IV 10 ml BID IGNACIO Administration Sodium Chloride 10 ml 07/27/18 15:59 Sodium Chloride Flush Syringe 10 Ml IV PRN PRN LINE FLUSH
--- NOTE | 2018-07-31 16:23 | XRay Report ---
FINAL REPORT PROCEDURE: XR CHEST 1V AP TECHNIQUE: Chest radiograph anteroposterior view. CPT 16806 HISTORY: follow up respiratory failure COMPARISON: 07/30/2018 FINDINGS: Heart: Normal. Mediastinum/Vessels: Normal. Lungs/Pleural space: Stable left lower lobe airspace infiltrate and left pleural effusion. There is a gain seen right apical pleural thickening or fluid. Bony thorax: No acute osseous abnormality. Life support devices: The nasogastric tube tip is at the gastroesophageal junction and should be adva nced approximately 10 centimeters. The endotracheal tube tip is in the mid trachea. IMPRESSION: Stable left lower lobe airspace infiltrate and left pleural effusion. There is again seen right apica l pleural thickening or fluid Nasogastric tube tip is at the gastroesophageal junction and should be advanced approximately 10 cent imeters.
[2018-07-31] MEDS ORDERED: PHOS-NAK FEEDTUBE ONE ×2 (18:00→22:00)
[2018-07-31] MEDS: ROCEPHIN/NS 2 GM/100 ML 2 GM/100 ML BAG IV SCH (21:38)
[2018-08-01] MEDS: DIPRIVAN 10 MG/ML 1,000 MG/100 ML BOTTLE IV SCH ×3 (00:30→23:19)
--- NOTE | 2018-08-01 01:21 | XRay Report ---
FINAL REPORT EXAM: XR CXR CLINICAL INDICATIONS: ETT PLACEMENT FINDINGS: Single frontal view of the chest was acquired and compared to the prior examination of July 31. There is no endotracheal tube with its tip in appropriate position. There is a nasogastric tube whic h is coiled upon itself in the stomach and which terminates in the gastric fundus. There is a left m idlung and basilar infiltrate, similar to the prior exam. There is a right apical pleural-based dens ity, pleural thickening versus loculated pleural effusion, unchanged. IMPRESSION: THE ENDOTRACHEAL TUBE LIES IN APPROPRIATE POSITION
[2018-08-01] MEDS: HumaLOG SUB-Q SCH ×6 (03:03→21:57)
[2018-08-01 05:08] LABS: BUN/Creatinine Ratio 62; Blood Urea Nitrogen 37 mg/dL (9-20); Calcium 9.8 mg/dL (8.4-10.2); Hemolysis Index 4
[2018-08-01] MEDS: SODIUM CHLORIDE FLUSH SYRINGE 10 ML IV SCH ×3 (06:46→21:31)
[2018-08-01] MEDS: SOLU-Medrol IV SCH ×3 (06:53→21:32)
[2018-08-01] MEDS: CARDIZEM PO SCH ×4 (06:53→23:21)
[2018-08-01] MEDS: BROVANA NEBU IH SCH ×2 (07:30→20:00)
[2018-08-01] MEDS: PULMICORT IH SCH ×2 (07:30→19:59)
--- NOTE | 2018-08-01 07:54 | Progress Note ---
Assessment and Plan 1. Acute kidney injury: Likely Vasomotor / hemodynamic CARLEE in the setting of A.fib with RVR. Continue IV fluids. Renal function is better. 2. FEN: Hypernatremia, water flushes. Appears euvolemic. On tube feeding. Monitor. 3. A.fib: Rate controlled. Amiodarone and Heparin. 4. Respiratory failure: On vent. 5. Sepsis. Subjective Date of service: 08/01/18 Principal diagnosis: AFib Interval history: Patient was seen and examined at the bedside. Objective - Vital Signs Vital signs: Vital Signs - 12hr 07/31/18 07/31/18 07/31/18 20:00 20:15 20:30 Temperature 99.3 F Pulse Rate 84 94 H 83 Pulse Rate [ Anterior Bilateral Throughout] Pulse Rate [ 74 From Monitor] Respiratory 33 H 33 H 16 Rate Respiratory Rate [Anterior Bilateral Throughout] Blood Pressure 158/88 167/86 142/74 O2 Sat by Pulse 95 95 95 Oximetry 07/31/18 07/31/18 07/31/18 20:37 20:45 21:00 Temperature Pulse Rate 82 83 75 Pulse Rate [ 85 Anterior Bilateral Throughout] Pulse Rate [ From Monitor] Respiratory 12 12 Rate Respiratory 19 Rate [Anterior Bilateral Throughout] Blood Pressure 142/74 127/74 129/67 O2 Sat by Pulse 94 98 98 Oximetry 07/31/18 07/31/18 07/31/18 21:02 21:15 21:18 Temperature Pulse Rate 74 76 74 Pulse Rate [ Anterior Bilateral Throughout] Pulse Rate [ From Monitor] Respiratory 12 12 12 Rate Respiratory Rate [Anterior Bilateral Throughout] Blood Pressure 144/82 132/70 132/70 O2 Sat by Pulse 99 99 99 Oximetry 07/31/18 07/31/18 07/31/18 21:30 21:42 21:45 Temperature Pulse Rate 88 75 71 Pulse Rate [ Anterior Bilateral Throughout] Pulse Rate [ From Monitor] Respiratory 13 14 Rate Respiratory Rate [Anterior Bilateral Throughout] Blood Pressure 137/78 137/78 127/72 O2 Sat by Pulse 100 99 Oximetry 07/31/18 07/31/18 07/31/18 22:00 22:15 22:30 Temperature Pulse Rate 77 82 68 Pulse Rate [ Anterior Bilateral Throughout] Pulse Rate [ From Monitor] Respiratory 13 12 12 Rate Respiratory Rate [Anterior Bilateral Throughout] Blood Pressure 134/75 130/77 124/64 O2 Sat by Pulse 99 97 98 Oximetry 07/31/18 07/31/18 07/31/18 22:45 23:00 23:15 Temperature Pulse Rate 72 72 76 Pulse Rate [ Anterior Bilateral Throughout] Pulse Rate [ From Monitor] Respiratory 12 12 12 Rate Respiratory Rate [Anterior Bilateral Throughout] Blood Pressure 127/68 118/68 121/75 O2 Sat by Pulse 98 97 98 Oximetry 07/31/18 07/31/18 07/31/18 23:30 23:32 23:46 Temperature Pulse Rate 79 79 80 Pulse Rate [ Anterior Bilateral Throughout] Pulse Rate [ From Monitor] Respiratory 15 25 H Rate Respiratory Rate [Anterior Bilateral Throughout] Blood Pressure 138/77 138/77 142/80 O2 Sat by Pulse 97 95 92 Oximetry 08/01/18 08/01/18 08/01/18 00:00 00:15 00:30 Temperature 98.8 F Pulse Rate 82 87 72 Pulse Rate [ Anterior Bilateral Throughout] Pulse Rate [ 73 From Monitor] Respiratory 24 30 H 13 Rate Respiratory Rate [Anterior Bilateral Throughout] Blood Pressure 142/80 152/82 121/63 O2 Sat by Pulse 93 94 92 Oximetry 08/01/18 08/01/18 08/01/18 00:45 01:00 01:15 Temperature Pulse Rate 74 70 73 Pulse Rate [ Anterior Bilateral Throughout] Pulse Rate [ From Monitor] Respiratory 14 17 16 Rate Respiratory Rate [Anterior Bilateral Throughout] Blood Pressure 133/70 133/70 128/63 O2 Sat by Pulse 98 99 99 Oximetry 08/01/18 08/01/18 08/01/18 01:30 01:45 02:00 Temperature Pulse Rate 73 72 71 Pulse Rate [ Anterior Bilateral Throughout] Pulse Rate [ From Monitor] Respiratory 16 16 18 Rate Respiratory Rate [Anterior Bilateral Throughout] Blood Pressure 124/63 126/66 131/65 O2 Sat by Pulse 99 99 100 Oximetry 08/01/18 08/01/18 08/01/18 02:15 02:30 02:45 Temperature Pulse Rate 70 72 75 Pulse Rate [ Anterior Bilateral Throughout] Pulse Rate [ From Monitor] Respiratory 24 22 26 H Rate Respiratory Rate [Anterior Bilateral Throughout] Blood Pressure 135/70 138/69 140/74 O2 Sat by Pulse 99 100 99 Oximetry 08/01/18 08/01/18 08/01/18 03:00 03:16 03:30 Temperature Pulse Rate 76 76 70 Pulse Rate [ Anterior Bilateral Throughout] Pulse Rate [ From Monitor] Respiratory 24 16 17 Rate Respiratory Rate [Anterior Bilateral Throughout] Blood Pressure 140/76 131/70 134/64 O2 Sat by Pulse 99 98 99 Oximetry 08/01/18 08/01/18 08/01/18 03:45 03:57 04:00 Temperature 97.9 F Pulse Rate 69 68 Pulse Rate [ Anterior Bilateral Throughout] Pulse Rate [ 71 From Monitor] Respiratory 15 17 Rate Respiratory Rate [Anterior Bilateral Throughout] Blood Pressure 122/64 121/59 O2 Sat by Pulse 99 99 Oximetry 08/01/18 08/01/18 08/01/18 04:15 04:30 04:33 Temperature Pulse Rate 74 71 71 Pulse Rate [ Anterior Bilateral Throughout] Pulse Rate [ From Monitor] Respiratory 17 16 Rate Respiratory Rate [Anterior Bilateral Throughout] Blood Pressure 131/71 126/65 126/65 O2 Sat by Pulse 99 100 99 Oximetry 08/01/18 08/01/18 08/01/18 04:45 05:00 05:15 Temperature Pulse Rate 70 72 68 Pulse Rate [ Anterior Bilateral Throughout] Pulse Rate [ From Monitor] Respiratory 14 17 16 Rate Respiratory Rate [Anterior Bilateral Throughout] Blood Pressure 124/62 127/62 124/59 O2 Sat by Pulse 99 99 99 Oximetry 08/01/18 08/01/18 08/01/18 05:30 05:45 06:00 Temperature Pulse Rate 67 68 70 Pulse Rate [ Anterior Bilateral Throughout] Pulse Rate [ From Monitor] Respiratory 15 14 15 Rate Respiratory Rate [Anterior Bilateral Throughout] Blood Pressure 122/60 115/58 119/63 O2 Sat by Pulse 99 100 99 Oximetry 08/01/18 08/01/18 08/01/18 06:15 06:30 06:53 Temperature Pulse Rate 68 66 76 Pulse Rate [ Anterior Bilateral Throughout] Pulse Rate [ From Monitor] Respiratory 15 16 Rate Respiratory Rate [Anterior Bilateral Throughout] Blood Pressure 125/59 119/57 137/69 O2 Sat by Pulse 99 99 Oximetry 08/01/18 08/01/18 07:30 07:32 Temperature Pulse Rate 79 Pulse Rate [ 77 Anterior Bilateral Throughout] Pulse Rate [ From Monitor] Respiratory Rate Respiratory 20 Rate [Anterior Bilateral Throughout] Blood Pressure 143/77 O2 Sat by Pulse 93 Oximetry - General Appearance General appearance: well-developed, appears stated age, sedated on ventilator, intubated EENT: ATNC, PERRL Neck: supple Respiratory: Present: Clear to Ascultation Cardiology: S1S2, no murmurs Gastrointestinal: normoactive bowel sounds, no tenderness, no distended Integumentary: no rash, warm and dry Neurologic: other (barely arousable) Musculoskeletal: other (no edema) - Lab 07/31/18 03:14 08/01/18 04:13 Most recent lab results Calcium 9.8 mg/dL (8.4-10.2) 08/01/18 04:13 Phosphorus 2.30 mg/dL (2.5-4.5) L 07/31/18 03:14 Magnesium 2.20 mg/dL (1.7-2.3) 07/31/18 03:14 Urine Creatinine 72.3 mg/dL (0.1-20.0) H 07/29/18 09:24 Urine Sodium 12 mmol/L 07/29/18 09:24 Medications & Allergies - Medications Allergies/Adverse Reactions: Allergies No Known Allergies Allergy (Verified 12/12/13 06:46) Home Medications: Home Medications Medication Instructions Recorded Confirmed Last Taken Type Pravastatin Sodium 40 mg PO DAILY 12/12/13 07/27/18 07/27/18 History Clopidogrel [Plavix] 75 mg PO DAILY #30 tablet 04/03/15 07/27/18 07/27/18 Rx amLODIPine [Norvasc] 10 mg PO DAILY #30 tablet 04/03/15 07/27/18 07/27/18 Rx Fluticasone/Salmeterol [Advair 1 puff IH BID 12/31/15 07/27/18 07/27/18 History Diskus 250-50 mcg] ALBUTEROL Inhaler (OR & NICU) 2 puff IH QID PRN 07/27/18 07/27/18 Unknown History [Proair] Aspirin [Aspirin BABY CHEW TAB] 81 mg PO DAILY 07/27/18 07/27/18 07/27/18 History Cyanocobalamin (Vitamin B-12) 2,500 mcg PO DAILY 07/27/18 07/27/18 07/27/18 History [Vitamin B12] [place]-3S/Dha/Epa/Fish Oil/D3 [Fish 1 each PO DAILY 07/27/18 07/27/18 07/27/18 History Wtc-Ptgsa-2-Vit D Softgel] Active Medications: Generic Name Dose Route Start Last Admin Trade Name Freq PRN Reason Stop Dose Admin Acetaminophen 650 mg 07/28/18 04:34 07/28/18 05:29 Tylenol [place] 650 mg Q4H PRN Administration Fever >101 Amiodarone HCl 200 mg 07/29/18 14:00 07/31/18 21:42 Cordarone PO 200 mg BID IGNACIO Administration Lipase/Protease/Amylase 1 each 07/28/18 13:57 Pancreaze 10,500 Unit FEEDTUBE PRN PRN For Clogged Feeding Tube Arformoterol Tartrate 15 mcg 07/27/18 20:00 08/01/18 07:30 Brovana Nebu IH 15 mcg Q12HRT IGNACIO Administration Budesonide 0.5 mg 07/27/18 20:00 08/01/18 07:30 Pulmicort IH 0.5 mg Q12HRT IGNACIO Administration Clopidogrel Bisulfate 75 mg 07/28/18 10:00 07/31/18 12:21 Plavix PO 75 mg DAILY IGNACIO Administration Cyanocobalamin 2,500 mcg 07/28/18 10:00 07/31/18 12:22 Vitamin B-12 PO 2,500 mcg QDAY IGNACIO Administration Diltiazem HCl 60 mg 07/27/18 18:00 08/01/18 06:53 Cardizem PO 60 mg Q6HR IGNACIO Administration Famotidine 20 mg 07/30/18 10:00 07/31/18 21:43 Pepcid IV 20 mg BID IGNACIO Administration Hydrophilic Ointment 1 applic 07/27/18 20:09 Vaseline Lip Therapy TP Q2HR PRN Dry Lips Ceftriaxone Sodium 2 gm in 100 mls @ 200 mls/hr 07/27/18 18:00 07/31/18 21:38 Rocephin/Ns 2 Gm/100 Ml IV 200 mls/hr Q24H IGNACIO Administration Protocol Heparin Sodium/Sodium Chloride 25,000 unit in 500 mls @ 24 mls/hr 07/27/18 17:00 07/31/18 19:06 Heparin/ 0.45% Nacl-25,000 Unit/500 Ml IV 1,800 units/hr TITR IGNACIO 36 mls/hr Administration Protocol 1,200 UNITS/HR Propofol 1,000 mg in 100 mls @ 2.531 mls/hr 07/27/18 21:00 08/01/18 01:30 Diprivan 10 Mg/Ml IV 10 mcg/kg/min TITR IGNACIO 5.062 mls/hr Titration Protocol 5 MCG/KG/MIN Azithromycin 500 mg/ Sodium 250 mls @ 250 mls/hr 07/28/18 13:00 07/31/18 12:23 Chloride IV 250 mls/hr Q24HR IGNACIO Administration Sodium Chloride 1,000 mls @ 100 mls/hr 07/28/18 22:00 07/29/18 15:29 Nacl 0.9% 1000 Ml IV 100 mls/hr DIRECT IGNACIO Administration Vancomycin HCl 1,250 mg/ 275 mls @ 166.667 mls/hr 07/30/18 10:00 07/31/18 21:49 Sodium Chloride IV 166.667 mls/hr Q18H IGNACIO Administration Insulin Human Lispro 0 unit 07/29/18 07:00 08/01/18 03:03 Humalog SUB-Q 2 unit Q4HR IGNACIO Administration Protocol Methylprednisolone Sodium Succinate 40 mg 07/28/18 14:00 08/01/18 06:53 Solu-Medrol IV 40 mg Q8HR IGNACIO Administration Multi-Ingred Cream/Lotion/Oil/Oint 1 applic 07/27/18 20:09 Artificial Tears Ophth Oint OU Q4HR PRN Dry Eye(s) Pravastatin Sodium 40 mg 07/28/18 10:00 07/31/18 11:00 Pravachol PO 40 mg DAILY IGNACIO Administration Simple Syrup 15 ml 07/28/18 13:57 Simple Syrup FEEDTUBE PRN PRN Hypoglycemia Simple Syrup 30 ml 07/28/18 13:57 Simple Syrup FEEDTUBE PRN PRN Hypoglycemia Sodium Bicarbonate 325 mg 07/28/18 13:57 Sodium Bicarbonate FEEDTUBE PRN PRN For Clogged Feeding Tube Sodium Chloride 10 ml 07/27/18 22:00 08/01/18 06:46 Sodium Chloride Flush Syringe 10 Ml IV 10 ml BID IGNACIO Administration Sodium Chloride 10 ml 07/27/18 15:59 Sodium Chloride Flush Syringe 10 Ml IV PRN PRN LINE FLUSH
[2018-08-01] MEDS: HEPARIN/ 0.45% NACL-25,000 UNIT/500 ML 25,000 UNIT/500 ML BAG IV SCH ×2 (08:19→23:18)
--- NOTE | 2018-08-01 10:47 | Progress Note ---
Assessment and Plan Assessment and plan: Sepsis. Blood cultures reveal Streptococcus anginosus. Consult ID for further evaluation. Left lower lobe pneumonia. Continue antibiotics and follow chest x-ray. Sputum culture revealed Pseudomonas and staph Acute hypoxemic respiratory failure. Etiology secondary to above. Continue on mechanical ventilation and weaning per pulmonary. Follow-up serial chest x-ray and ABGs. Atrial fibrillation. Continue amiodarone and diltiazem. Cardiology following. Check echocardiogram. Acute renal failure. Etiology likely secondary to sepsis/ATN. Renal ultrasound unremarkable. COPD exacerbation. Continue bronchodilators/nebulizers. IV steroids. Hypertension. Resume antihypertensive medications as needed. Hyperlipidemia. Peripheral vascular disease. The high probability of a clinically significant, sudden or life threatening deterioration of the [respiratory] system(s) required my full and direct attention, intervention and personal management. The aggregate critical care time was [32] minutes. This time is in addition to time spent performing reported procedures but includes the following: [x] Data Review and interpretation [x] Patient assessment and monitoring of vital signs [x] Documentation [x] Medication orders and management History Interval history: 73 YO Male with H/O COPD, PVD, HTN, HLD, Seizure Disorder, Skin Cancer presents to ED for evaluation. Pt states that he has experienced shortness and chest palpitations over the past 2 days with worsening symptoms over the past 1 day. Pt acknowledges decreased exercise tolerance, as well as dyspnea on exertion. 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 Pt denies fever, chills, leg swelling, calf pain, CP with deep breathing, hemoptysis, Prolonged air/car travel, or immobility, Back Pain, Syncope, Lightheadedness, recent ill contacts, unintentional weight loss, night sweats, or bone pain. Pt seen and evaluated in ED and found to have Atrial Fib with RVR refractory to cardizem drip, but improved with Amiodarone Drip, Acute Hypoxemic Respiratory Failure, SIRS. Pt admitted to ICU. The patient later after admission had further decompensation with respiratory distress. Patient reportedly was satting 60-70% on a nonrebreather and had to be emergently intubated. The patient remains intubated on mechanical ventilation Hospitalist Physical - Constitutional Vitals: Temp Pulse Resp BP Pulse Ox 97.9 F 79 20 143/77 93 08/01/18 03:57 08/01/18 07:32 08/01/18 07:30 08/01/18 07:32 08/01/18 07:32 General appearance: Present: no acute distress, other (intubated on mechanical ventilation) - EENT Eyes: Present: PERRL, EOM intact ENT: hearing intact, clear oral mucosa, dentition normal - Neck Neck: Present: supple, normal ROM - Respiratory Respiratory effort: normal Respiratory: bilateral: CTA - Cardiovascular Rhythm: regular Heart Sounds: Present: S1 & S2. Absent: gallop, rub - Extremities Extremities: no ischemia, No edema, Full ROM - Abdominal General gastrointestinal: soft, non-tender, non-distended, normal bowel sounds - Integumentary Integumentary: Present: clear, warm, dry - Neurologic Neurologic: CNII-XII intact, moves all extremities Results - Labs CBC & Chem 7: 07/31/18 03:14 08/01/18 04:13 Labs: Laboratory Last Values WBC 9.0 K/mm3 (4.5-11.0) 07/29/18 04:21 RBC 3.21 M/mm3 (3.65-5.03) L 07/29/18 04:21 Hgb 10.6 gm/dl (11.8-15.2) L 07/31/18 03:14 Hct 33.2 % (35.5-45.6) L 07/31/18 03:14 MCV 103 fl (84-94) H 07/29/18 04:21 MCH 34 pg (28-32) H 07/29/18 04:21 MCHC 33 % (32-34) 07/29/18 04:21 RDW 16.4 % (13.2-15.2) H 07/29/18 04:21 Plt Count 235 K/mm3 (140-440) 07/31/18 03:14 Add Manual Diff Complete 07/29/18 04:21 Total Counted 100 07/29/18 04:21 Seg Neutrophils % Operator Lights 07/29/18 04:21 Seg Neuts % (Manual) 59.0 % (40.0-70.0) 07/29/18 04:21 Band Neutrophils % 22.0 % 07/29/18 04:21 Lymphocytes % (Manual) 11.0 % (13.4-35.0) L 07/29/18 04:21 Reactive Lymphs % (Man) 0 % 07/29/18 04:21 Monocytes % (Manual) 6.0 % (0.0-7.3) 07/29/18 04:21 Eosinophils % (Manual) 0 % (0.0-4.3) 07/29/18 04:21 Basophils % (Manual) 0 % (0.0-1.8) 07/29/18 04:21 Metamyelocytes % 0 % 07/29/18 04:21 Myelocytes % 2.0 % 07/29/18 04:21 Promyelocytes % 0 % 07/29/18 04:21 Blast Cells % 0 % 07/29/18 04:21 Nucleated RBC % Not Reportable 07/29/18 04:21 Seg Neutrophils # Man 5.3 K/mm3 (1.8-7.7) 07/29/18 04:21 Band Neutrophils # 2.0 K/mm3 07/29/18 04:21 Lymphocytes # (Manual) 1.0 K/mm3 (1.2-5.4) L 07/29/18 04:21 Abs React Lymphs (Man) 0.0 K/mm3 07/29/18 04:21 Monocytes # (Manual) 0.5 K/mm3 (0.0-0.8) 07/29/18 04:21 Eosinophils # (Manual) 0.0 K/mm3 (0.0-0.4) 07/29/18 04:21 Basophils # (Manual) 0.0 K/mm3 (0.0-0.1) 07/29/18 04:21 Metamyelocytes # 0.0 K/mm3 07/29/18 04:21 Myelocytes # 0.2 K/mm3 07/29/18 04:21 Promyelocytes # 0.0 K/mm3 07/29/18 04:21 Blast Cells # 0.0 K/mm3 07/29/18 04:21 Pathologist Review 07/28/18 06:01 WBC Morphology Not Reportable 07/29/18 04:21 Hypersegmented Neuts Not Reportable 07/29/18 04:21 Hyposegmented Neuts Not Reportable 07/29/18 04:21 Hypogranular Neuts Not Reportable 07/29/18 04:21 Smudge Cells Not Reportable 07/29/18 04:21 Toxic Granulation Not Reportable 07/29/18 04:21 Toxic Vacuolation Not Reportable 07/29/18 04:21 Dohle Bodies 1+ 07/29/18 04:21 Pelger-Huet Anomaly Not Reportable 07/29/18 04:21 Janiya Rods Not Reportable 07/29/18 04:21 Platelet Estimate Appears normal 07/29/18 04:21 Clumped Platelets Not Reportable 07/29/18 04:21 Plt Clumps, EDTA Not Reportable 07/29/18 04:21 Large Platelets Not Reportable 07/29/18 04:21 Giant Platelets Not Reportable 07/29/18 04:21 Platelet Satelliting Not Reportable 07/29/18 04:21 Plt Morphology Comment Not Reportable 07/29/18 04:21 RBC Morphology Not Reportable 07/29/18 04:21 Dimorphic RBCs Not Reportable 07/29/18 04:21 Polychromasia Not Reportable 07/29/18 04:21 Hypochromasia Few 07/29/18 04:21 Poikilocytosis Not Reportable 07/29/18 04:21 Anisocytosis 1+ 07/29/18 04:21 Microcytosis Not Reportable 07/29/18 04:21 Macrocytosis Not Reportable 07/29/18 04:21 Spherocytes Not Reportable 07/29/18 04:21 Pappenheimer Bodies Not Reportable 07/29/18 04:21 Sickle Cells Not Reportable 07/29/18 04:21 Target Cells Not Reportable 07/29/18 04:21 Tear Drop Cells Not Reportable 07/29/18 04:21 Ovalocytes Not Reportable 07/29/18 04:21 Helmet Cells Not Reportable 07/29/18 04:21 Lr-[place] Bodies Not Reportable 07/29/18 04:21 [place] Rings Not Reportable 07/29/18 04:21 Armando Cells Not Reportable 07/29/18 04:21 Bite Cells Not Reportable 07/29/18 04:21 Crenated Cell Not Reportable 07/29/18 04:21 Elliptocytes Not Reportable 07/29/18 04:21 Acanthocytes (Spur) Not Reportable 07/29/18 04:21 Rouleaux Not Reportable 07/29/18 04:21 Hemoglobin C Crystals Not Reportable 07/29/18 04:21 Schistocytes Not Reportable 07/29/18 04:21 Malaria parasites Not Reportable 07/29/18 04:21 Jigar Bodies Not Reportable 07/29/18 04:21 Hem Pathologist Commnt No 07/29/18 04:21 PT 16.0 Sec. (12.2-14.9) H 07/27/18 17:09 INR 1.24 (0.87-1.13) H 07/27/18 17:09 APTT 31.9 Sec. (24.2-36.6) 07/27/18 17:09 D-Dimer 798.17 ng/mlDDU (0-234) H 07/27/18 15:52 Heparin Anti-Xa Level 0.30 U.I./ml (0.3-0.7) 07/31/18 23:34 POC ABG pH 7.426 (7.35-7.45) 08/01/18 09:28 POC ABG pCO2 61.2 (35-45) H 08/01/18 09:28 POC ABG pO2 69 (80-105) L 08/01/18 09:28 POC ABG HCO3 40.3 08/01/18 09:28 POC ABG Total CO2 42 08/01/18 09:28 POC ABG O2 Sat 93 08/01/18 09:28 POC ABG Base Excess 16 08/01/18 09:28 FiO2 50 % 08/01/18 09:28 Sodium 150 mmol/L (137-145) H D 08/01/18 04:13 Potassium 4.4 mmol/L (3.6-5.0) 08/01/18 04:13 Chloride 105.3 mmol/L (98-107) 08/01/18 04:13 Carbon Dioxide 37 mmol/L (22-30) H D 08/01/18 04:13 Anion Gap 12 mmol/L 08/01/18 04:13 BUN 37 mg/dL (9-20) H 08/01/18 04:13 Creatinine 0.6 mg/dL (0.8-1.5) L 08/01/18 04:13 Estimated GFR > 60 ml/min 08/01/18 04:13 BUN/Creatinine Ratio 62 % 08/01/18 04:13 Glucose 223 mg/dL (75-100) H 08/01/18 04:13 POC Glucose 219 (70-105) H 08/01/18 05:29 Lactic Acid 3.90 mmol/L (0.7-2.0) H* 07/28/18 09:20 Calcium 9.8 mg/dL (8.4-10.2) 08/01/18 04:13 Phosphorus 2.30 mg/dL (2.5-4.5) L 07/31/18 03:14 Magnesium 2.20 mg/dL (1.7-2.3) 07/31/18 03:14 Total Bilirubin 1.30 mg/dL (0.1-1.2) H 07/27/18 12:59 AST 15 units/L (5-40) 07/27/18 12:59 ALT 16 units/L (7-56) 07/27/18 12:59 Alkaline Phosphatase 62 units/L (35-129) 07/27/18 12:59 Troponin T < 0.010 ng/mL (0.00-0.029) 07/27/18 12:59 NT-Pro-B Natriuret Pep 3913 pg/mL (0-900) H 07/27/18 12:59 Total Protein 6.2 g/dL (6.3-8.2) L 07/27/18 12:59 Albumin 3.6 g/dL (3.9-5) L 07/27/18 12:59 Albumin/Globulin Ratio 1.4 % 07/27/18 12:59 Triglycerides 142 mg/dL (2-149) 08/01/18 04:13 TSH 1.180 mlU/mL (0.270-4.200) 07/27/18 15:52 Free T4 1.28 ng/dL (0.76-1.46) 07/27/18 15:52 Urine Color Yellow (Yellow) 07/29/18 09:24 Urine Turbidity Cloudy (Clear) 07/29/18 09:24 Urine pH 5.0 (5.0-7.0) 07/29/18 09:24 Ur Specific [place] 1.017 (1.003-1.030) 07/29/18 09:24 Urine Protein 30 mg/dl mg/dL (Negative) 07/29/18 09:24 Urine Glucose (UA) Neg mg/dL (Negative) 07/29/18 09:24 Urine Ketones Neg mg/dL (Negative) 07/29/18 09:24 Urine Blood Mod (Negative) 07/29/18 09:24 Urine Nitrite Neg (Negative) 07/29/18 09:24 Urine Bilirubin Neg (Negative) 07/29/18 09:24 Urine Urobilinogen < 2.0 mg/dL (<2.0) 07/29/18 09:24 Ur Leukocyte Esterase Mod (Negative) 07/29/18 09:24 Urine WBC (Auto) 29.0 /HPF (0.0-6.0) H 07/29/18 09:24 Urine RBC (Auto) 7.0 /HPF (0.0-6.0) 07/29/18 09:24 U Epithel Cells (Auto) 2.0 /HPF (0-13.0) 07/29/18 09:24 Urine Bacteria (Auto) 1+ /HPF (Negative) 07/29/18 09:24 Urine Mucus Few /HPF 07/29/18 09:24 Urine Yeast (Budding) 1+ /HPF 07/29/18 09:24 Urine Creatinine 72.3 mg/dL (0.1-20.0) H 07/29/18 09:24 Urine Sodium 12 mmol/L 07/29/18 09:24 Random Vancomycin 9.2 ug/mL (0-40.0) 07/29/18 04:21 Nutrition/Malnutrition Assess - Dietary Evaluation Nutrition/Malnutrition Findings: Nutrition Notes Start: 07/28/18 10:54 Freq: Status: Active Protocol: Document 07/29/18 11:56 TW (Rec: 07/29/18 12:47 TW [id number]) Co-Sign 07/29/18 11:56 OL Nutrition Notes Need for Assessment generated from: MD Order Initial or Follow up Reassessment Current Diagnoses Acute Kidney Injury COPD Sepsis Hypertension Heart Failure Respiratory Failure Other Pertinent Diagnosis Hx of Skin Cancer Current Diet Nepro at 50ml/hr Labs/Tests BUN: 60 Cr: 1.6 B Medications Propofol at 10.124 ml/hr (267 kcal) Solu-Medrol Height 5 ft 8 in Weight 88.1 kg [place] Body Weight (lbs) 154.0 BMI 29.5 Subjective/Other Information Observed Nepro at 20ml/hr. Per RN, pt tolerating TF well. Pt . still on vent. Percent of energy/protein needs met: 45%/38% Burn Absent Trauma Absent #1 Nutrition Diagnoses Inadequate oral intake Diagnosis Progress(for reassessment Continues documentation) Is patient on ventilator? Yes Is Patient Ambulatory and/or Out of Bed No REE-([facility]-confined to bed) [phone] Calculation Used for Recommendations [facility] Additional Notes Fluid needs: 1ml/kcal Protein needs (1.2-2 kg/g) 106 -176 g/day Nutrition Intervention Change Diet Order: TF Nutrition Support: Nepro at 45 ml/hr Water Flush: 200ml q4h. Kcal 1,944 Protein (gm) 87 Fluid (mL) 785 Goal #1 TF tolerance and rate Goal #2 Meet at least 80% of kcal needs and 80-100% of protein needs. Follow-Up By: 08/01/18 Additional Comments F/U for TF to goal
[2018-08-01] MEDS: CORDARONE PO SCH ×2 (10:54→21:31)
[2018-08-01] MEDS: PRAVACHOL PO SCH (10:54)
[2018-08-01] MEDS: PEPCID PO SCH ×2 (10:54→21:31)
[2018-08-01] MEDS: PLAVIX PO SCH (10:54)
[2018-08-01] MEDS: ZITHROMAX 500 MG in NACL 0.9% 250ML 250 ML IV SCH (10:54)
[2018-08-01] MEDS: VITAMIN B-12 PO SCH (10:55)
--- NOTE | 2018-08-01 11:47 | Progress Note ---
Assessment and Plan Acute hypoxemic respiratory failure, on mechanical ventilatory support. Atrial fibrillation with rapid ventricular response. Possible congestive heart failure with an acute exacerbation. 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 Elevated D-dimer. Leukocytosis. Sepsis syndrome with hypotension and fevers this morning. Chronic obstructive lung disease with an acute exacerbation. Hypertension. Peripheral vascular disease. Mixed acidosis, respiratory and metabolic. Acute kidney injury. Lactic acidosis. Elevated BNP level of 3913. History of hypertension. History of arthritis. - continue set rate to 12 cmH20 and repeat ABG prn - free water started for hypernatremia - consider adding seroquel re: agitation / delirium - continue daily SBT's as tolerated (did not tolerate today) - VAP bundle addressed - titrate sedatives for RASS 0 to -1 - PT/OT consulted - continue enteral nutrition as tolerated - continue supplemental oxygen to keep sats > 90% - aspiration precautions - continue bronchodilators with pulmonary hygiene per RT - continue therapeutic anticoagulation - continue stress ulcer prophylaxis - continue Antibiotics to complete course - continue Mobility protocol for pressure ulcer prevention - continue pother care per attending / other consultants .... re-evaluate in am & prn FULL CODE STATUS CONDITION: CRITICAL The high probability of a clinically significant, sudden or life-threatening deterioration of the [respiratory, cardiovascular, renal] system(s) required my full and direct attention, intervention and personal management. The aggregate critical care time was [35] minutes without overlap. Time includes spent on; [x] Data Review and interpretation [x] Patient assessment and monitoring of vital signs [x] Documentation [x] Medication orders and management Subjective Date of service: 08/01/18 Principal diagnosis: Acute hypoxemic respiratory failure; A-fib with RVR; Possible CHF; H/O DVT Interval history: Patient is seen today for: Acute hypoxemic respiratory failure on MVS; Atrial fibrillation with RVR; Possible congestive heart failure with an acute exacerbation; History of deep venous thrombosis; Elevated D-dimer. Seen and examined at bedside; 24hour events reviewed; nursing and respiratory care staff consulted; no adverse overnight events reported to me; remains on MVS; remains a difficult wean; agitated during sedation holidays; now with hypernatremia also; no N/V/F/C otherwise Objective Vital Signs - 12hr 08/01/18 08/01/18 08/01/18 00:00 00:15 00:30 Temperature 98.8 F Pulse Rate 82 87 72 Pulse Rate [ Anterior Bilateral Throughout] Pulse Rate [ 73 From Monitor] Respiratory 24 30 H 13 Rate Respiratory Rate [Anterior Bilateral Throughout] Blood Pressure 142/80 152/82 121/63 O2 Sat by Pulse 93 94 92 Oximetry 08/01/18 08/01/18 08/01/18 00:45 01:00 01:15 Temperature Pulse Rate 74 70 73 Pulse Rate [ Anterior Bilateral Throughout] Pulse Rate [ From Monitor] Respiratory 14 17 16 Rate Respiratory Rate [Anterior Bilateral Throughout] Blood Pressure 133/70 133/70 128/63 O2 Sat by Pulse 98 99 99 Oximetry 08/01/18 08/01/18 08/01/18 01:30 01:45 02:00 Temperature Pulse Rate 73 72 71 Pulse Rate [ Anterior Bilateral Throughout] Pulse Rate [ From Monitor] Respiratory 16 16 18 Rate Respiratory Rate [Anterior Bilateral Throughout] Blood Pressure 124/63 126/66 131/65 O2 Sat by Pulse 99 99 100 Oximetry 08/01/18 08/01/18 08/01/18 02:15 02:30 02:45 Temperature Pulse Rate 70 72 75 Pulse Rate [ Anterior Bilateral Throughout] Pulse Rate [ From Monitor] Respiratory 24 22 26 H Rate Respiratory Rate [Anterior Bilateral Throughout] Blood Pressure 135/70 138/69 140/74 O2 Sat by Pulse 99 100 99 Oximetry 08/01/18 08/01/18 08/01/18 03:00 03:16 03:30 Temperature Pulse Rate 76 76 70 Pulse Rate [ Anterior Bilateral Throughout] Pulse Rate [ From Monitor] Respiratory 24 16 17 Rate Respiratory Rate [Anterior Bilateral Throughout] Blood Pressure 140/76 131/70 134/64 O2 Sat by Pulse 99 98 99 Oximetry 08/01/18 08/01/18 08/01/18 03:45 03:57 04:00 Temperature 97.9 F Pulse Rate 69 68 Pulse Rate [ Anterior Bilateral Throughout] Pulse Rate [ 71 From Monitor] Respiratory 15 17 Rate Respiratory Rate [Anterior Bilateral Throughout] Blood Pressure 122/64 121/59 O2 Sat by Pulse 99 99 Oximetry 08/01/18 08/01/18 08/01/18 04:15 04:30 04:33 Temperature Pulse Rate 74 71 71 Pulse Rate [ Anterior Bilateral Throughout] Pulse Rate [ From Monitor] Respiratory 17 16 Rate Respiratory Rate [Anterior Bilateral Throughout] Blood Pressure 131/71 126/65 126/65 O2 Sat by Pulse 99 100 99 Oximetry 08/01/18 08/01/18 08/01/18 04:45 05:00 05:15 Temperature Pulse Rate 70 72 68 Pulse Rate [ Anterior Bilateral Throughout] Pulse Rate [ From Monitor] Respiratory 14 17 16 Rate Respiratory Rate [Anterior Bilateral Throughout] Blood Pressure 124/62 127/62 124/59 O2 Sat by Pulse 99 99 99 Oximetry 08/01/18 08/01/18 08/01/18 05:30 05:45 06:00 Temperature Pulse Rate 67 68 70 Pulse Rate [ Anterior Bilateral Throughout] Pulse Rate [ From Monitor] Respiratory 15 14 15 Rate Respiratory Rate [Anterior Bilateral Throughout] Blood Pressure 122/60 115/58 119/63 O2 Sat by Pulse 99 100 99 Oximetry 08/01/18 08/01/18 08/01/18 06:15 06:30 06:53 Temperature Pulse Rate 68 66 76 Pulse Rate [ Anterior Bilateral Throughout] Pulse Rate [ From Monitor] Respiratory 15 16 Rate Respiratory Rate [Anterior Bilateral Throughout] Blood Pressure 125/59 119/57 137/69 O2 Sat by Pulse 99 99 Oximetry 08/01/18 08/01/18 07:30 07:32 Temperature Pulse Rate 79 Pulse Rate [ 77 Anterior Bilateral Throughout] Pulse Rate [ From Monitor] Respiratory Rate Respiratory 20 Rate [Anterior Bilateral Throughout] Blood Pressure 143/77 O2 Sat by Pulse 93 Oximetry Constitutional: appears uncomfortable, other (elderly looking CM, normocephalic and atraumatic with mildly increased respiratory effort) Eyes: non-icteric ENT: oropharynx moist, other (ETT 23 cm SUHAS) Neck: supple, no lymphadenopathy, no JVD, other (No thyromegaly) Effort: mildly labored Ascultation: Bilateral: diminished breath sounds, rhonchi Percussion: Bilateral: not dull Cardiovascular: irregular rhythm, other (+ systolic murmur) Gastrointestinal: hypoactive bowel sounds, soft, non-tender, non-distended, other (No palpable HSM) Integumentary: rash, other (poor [place]) Extremities: no cyanosis, pink and warm, pulses normal, no ischemia or petechiae Neurologic: normal mental status, non-focal exam (grossly), pupils equal and round, CN II-XII normal, motor strength normal and Psychiatric: mood appropriate, affect normal CBC and BMP: 08/02/18 04:45 08/02/18 04:45 ABG, PT/INR, D-dimer: ABG POC ABG pH 7.426 (7.35-7.45) 08/01/18 09:28 POC ABG pCO2 61.2 (35-45) H 08/01/18 09:28 POC ABG pO2 69 (80-105) L 08/01/18 09:28 POC ABG HCO3 40.3 08/01/18 09:28 POC ABG Total CO2 42 08/01/18 09:28 POC ABG O2 Sat 93 08/01/18 09:28 PT/INR, D-dimer PT 16.0 Sec. (12.2-14.9) H 07/27/18 17:09 INR 1.24 (0.87-1.13) H 07/27/18 17:09 D-Dimer 798.17 ng/mlDDU (0-234) H 07/27/18 15:52 Abnormal lab findings: Abnormal Labs 07/27/18 07/27/18 07/27/18 12:59 12:59 12:59 WBC 15.8 H RBC Hgb Hct MCV 104 H MCH 34 H RDW 16.3 H Seg Neuts % (Manual) 88.0 H Lymphocytes % (Manual) 3.0 L Seg Neutrophils # Man 13.9 H Lymphocytes # (Manual) 0.5 L PT 17.0 H INR 1.34 H D-Dimer Heparin Anti-Xa Level POC ABG pH POC ABG pCO2 POC ABG pO2 Sodium Potassium Chloride Carbon Dioxide 21 L BUN 38 H Creatinine 1.6 H Glucose POC Glucose Lactic Acid Calcium Phosphorus Total Bilirubin 1.30 H NT-Pro-B Natriuret Pep 3913 H Total Protein 6.2 L Albumin 3.6 L Urine WBC (Auto) Urine Creatinine 07/27/18 07/27/18 07/27/18 15:52 16:12 17:09 WBC RBC Hgb Hct MCV MCH RDW Seg Neuts % (Manual) Lymphocytes % (Manual) Seg Neutrophils # Man Lymphocytes # (Manual) PT 16.0 H INR 1.24 H D-Dimer 798.17 H Heparin Anti-Xa Level POC ABG pH POC ABG pCO2 POC ABG pO2 Sodium Potassium Chloride Carbon Dioxide BUN Creatinine Glucose POC Glucose Lactic Acid 5.00 H* Calcium Phosphorus Total Bilirubin NT-Pro-B Natriuret Pep Total Protein Albumin Urine WBC (Auto) Urine Creatinine 07/27/18 07/27/18 07/27/18 17:59 18:07 21:31 WBC RBC Hgb Hct MCV MCH RDW Seg Neuts % (Manual) Lymphocytes % (Manual) Seg Neutrophils # Man Lymphocytes # (Manual) PT INR D-Dimer Heparin Anti-Xa Level POC ABG pH 7.344 L POC ABG pCO2 POC ABG pO2 36 L Sodium Potassium Chloride Carbon Dioxide BUN Creatinine Glucose POC Glucose Lactic Acid 5.20 H* 5.00 H* Calcium Phosphorus Total Bilirubin NT-Pro-B Natriuret Pep Total Protein Albumin Urine WBC (Auto) Urine Creatinine 07/27/18 07/27/18 07/27/18 21:57 22:42 23:26 WBC RBC Hgb Hct MCV MCH RDW Seg Neuts % (Manual) Lymphocytes % (Manual) Seg Neutrophils # Man Lymphocytes # (Manual) PT INR D-Dimer Heparin Anti-Xa Level POC ABG pH 7.199 L POC ABG pCO2 62.0 H POC ABG pO2 Sodium Potassium Chloride Carbon Dioxide BUN Creatinine Glucose POC Glucose Lactic Acid 4.70 H* 5.00 H* Calcium Phosphorus Total Bilirubin NT-Pro-B Natriuret Pep Total Protein Albumin Urine WBC (Auto) Urine Creatinine 07/28/18 07/28/18 07/28/18 00:45 05:40 05:58 WBC RBC Hgb Hct MCV MCH RDW Seg Neuts % (Manual) Lymphocytes % (Manual) Seg Neutrophils # Man Lymphocytes # (Manual) PT INR D-Dimer Heparin Anti-Xa Level 0.11 L POC ABG pH 7.186 L POC ABG pCO2 60.1 H POC ABG pO2 68 L Sodium Potassium Chloride Carbon Dioxide BUN Creatinine Glucose POC Glucose Lactic Acid 4.70 H* Calcium Phosphorus Total Bilirubin NT-Pro-B Natriuret Pep Total Protein Albumin Urine WBC (Auto) Urine Creatinine 07/28/18 07/28/18 07/28/18 06:01 06:01 07:19 WBC 12.5 H RBC 3.51 L Hgb 11.5 L Hct MCV 104 H MCH 33 H RDW 16.6 H Seg Neuts % (Manual) Lymphocytes % (Manual) Seg Neutrophils # Man Lymphocytes # (Manual) PT INR D-Dimer Heparin Anti-Xa Level 0.14 L POC ABG pH POC ABG pCO2 POC ABG pO2 Sodium 135 L Potassium 5.1 H Chloride 95.0 L Carbon Dioxide 21 L BUN 54 H Creatinine 2.6 H D Glucose POC Glucose Lactic Acid Calcium Phosphorus Total Bilirubin NT-Pro-B Natriuret Pep Total Protein Albumin Urine WBC (Auto) Urine Creatinine 07/28/18 07/28/18 07/28/18 07:19 09:20 11:06 WBC RBC Hgb Hct MCV MCH RDW Seg Neuts % (Manual) Lymphocytes % (Manual) Seg Neutrophils # Man Lymphocytes # (Manual) PT INR D-Dimer Heparin Anti-Xa Level POC ABG pH 7.266 L POC ABG pCO2 49.7 H POC ABG pO2 74 L Sodium Potassium Chloride Carbon Dioxide BUN Creatinine Glucose POC Glucose Lactic Acid 4.00 H* 3.90 H* Calcium Phosphorus Total Bilirubin NT-Pro-B Natriuret Pep Total Protein Albumin Urine WBC (Auto) Urine Creatinine 07/28/18 07/28/18 07/28/18 15:06 20:45 23:36 WBC RBC Hgb Hct MCV MCH RDW Seg Neuts % (Manual) Lymphocytes % (Manual) Seg Neutrophils # Man Lymphocytes # (Manual) PT INR D-Dimer Heparin Anti-Xa Level 0.15 L POC ABG pH POC ABG pCO2 POC ABG pO2 Sodium 134 L Potassium 5.2 H Chloride Carbon Dioxide BUN 58 H Creatinine 2.1 H Glucose 110 H POC Glucose 125 H Lactic Acid Calcium Phosphorus Total Bilirubin NT-Pro-B Natriuret Pep Total Protein Albumin Urine WBC (Auto) Urine Creatinine 07/29/18 07/29/18 07/29/18 01:12 04:21 04:21 WBC RBC 3.21 L Hgb 10.8 L Hct 33.0 L MCV 103 H MCH 34 H RDW 16.4 H Seg Neuts % (Manual) Lymphocytes % (Manual) 11.0 L Seg Neutrophils # Man Lymphocytes # (Manual) 1.0 L PT INR D-Dimer Heparin Anti-Xa Level 0.21 L POC ABG pH POC ABG pCO2 POC ABG pO2 Sodium Potassium Chloride Carbon Dioxide BUN 48 H Creatinine 1.6 H Glucose 166 H POC Glucose Lactic Acid Calcium Phosphorus Total Bilirubin NT-Pro-B Natriuret Pep Total Protein Albumin Urine WBC (Auto) Urine Creatinine 07/29/18 07/29/18 07/29/18 05:19 08:16 09:24 WBC RBC Hgb Hct MCV MCH RDW Seg Neuts % (Manual) Lymphocytes % (Manual) Seg Neutrophils # Man Lymphocytes # (Manual) PT INR D-Dimer Heparin Anti-Xa Level 0.25 L POC ABG pH POC ABG pCO2 POC ABG pO2 Sodium Potassium Chloride Carbon Dioxide BUN Creatinine Glucose POC Glucose 181 H Lactic Acid Calcium Phosphorus Total Bilirubin NT-Pro-B Natriuret Pep Total Protein Albumin Urine WBC (Auto) 29.0 H Urine Creatinine 07/29/18 07/29/18 07/29/18 09:24 10:00 15:03 WBC RBC Hgb Hct MCV MCH RDW Seg Neuts % (Manual) Lymphocytes % (Manual) Seg Neutrophils # Man Lymphocytes # (Manual) PT INR D-Dimer Heparin Anti-Xa Level POC ABG pH POC ABG pCO2 POC ABG pO2 Sodium Potassium Chloride Carbon Dioxide BUN Creatinine Glucose POC Glucose 195 H 167 H Lactic Acid Calcium Phosphorus Total Bilirubin NT-Pro-B Natriuret Pep Total Protein Albumin Urine WBC (Auto) Urine Creatinine 72.3 H 07/29/18 07/29/18 07/30/18 17:51 21:32 01:38 WBC RBC Hgb Hct MCV MCH RDW Seg Neuts % (Manual) Lymphocytes % (Manual) Seg Neutrophils # Man Lymphocytes # (Manual) PT INR D-Dimer Heparin Anti-Xa Level POC ABG pH POC ABG pCO2 POC ABG pO2 Sodium Potassium Chloride Carbon Dioxide BUN Creatinine Glucose POC Glucose 167 H 217 H 194 H Lactic Acid Calcium Phosphorus Total Bilirubin NT-Pro-B Natriuret Pep Total Protein Albumin Urine WBC (Auto) Urine Creatinine 07/30/18 07/30/18 07/30/18 03:21 05:13 10:18 WBC RBC Hgb Hct MCV MCH RDW Seg Neuts % (Manual) Lymphocytes % (Manual) Seg Neutrophils # Man Lymphocytes # (Manual) PT INR D-Dimer Heparin Anti-Xa Level POC ABG pH POC ABG pCO2 50.3 H POC ABG pO2 78 L Sodium Potassium Chloride Carbon Dioxide BUN 41 H Creatinine Glucose 202 H POC Glucose 151 H Lactic Acid Calcium Phosphorus Total Bilirubin NT-Pro-B Natriuret Pep Total Protein Albumin Urine WBC (Auto) Urine Creatinine 07/30/18 07/30/18 07/30/18 11:29 16:28 18:12 WBC RBC Hgb Hct MCV MCH RDW Seg Neuts % (Manual) Lymphocytes % (Manual) Seg Neutrophils # Man Lymphocytes # (Manual) PT INR D-Dimer Heparin Anti-Xa Level POC ABG pH 7.326 L POC ABG pCO2 53.2 H POC ABG pO2 70 L Sodium Potassium Chloride Carbon Dioxide BUN Creatinine Glucose POC Glucose 247 H 212 H Lactic Acid Calcium Phosphorus Total Bilirubin NT-Pro-B Natriuret Pep Total Protein Albumin Urine WBC (Auto) Urine Creatinine 07/30/18 07/30/18 07/31/18 20:08 21:52 01:59 WBC RBC Hgb Hct MCV MCH RDW Seg Neuts % (Manual) Lymphocytes % (Manual) Seg Neutrophils # Man Lymphocytes # (Manual) PT INR D-Dimer Heparin Anti-Xa Level POC ABG pH POC ABG pCO2 POC ABG pO2 Sodium Potassium Chloride Carbon Dioxide BUN Creatinine Glucose POC Glucose 205 H 215 H 242 H Lactic Acid Calcium Phosphorus Total Bilirubin NT-Pro-B Natriuret Pep Total Protein Albumin Urine WBC (Auto) Urine Creatinine 07/31/18 07/31/18 07/31/18 03:14 03:14 04:55 WBC RBC Hgb 10.6 L Hct 33.2 L MCV MCH RDW Seg Neuts % (Manual) Lymphocytes % (Manual) Seg Neutrophils # Man Lymphocytes # (Manual) PT INR D-Dimer Heparin Anti-Xa Level POC ABG pH 7.331 L POC ABG pCO2 67.1 H POC ABG pO2 Sodium Potassium Chloride Carbon Dioxide BUN 36 H Creatinine 0.7 L Glucose 242 H POC Glucose Lactic Acid Calcium 10.3 H Phosphorus 2.30 L Total Bilirubin NT-Pro-B Natriuret Pep Total Protein Albumin Urine WBC (Auto) Urine Creatinine 07/31/18 07/31/18 07/31/18 05:37 10:08 14:07 WBC RBC Hgb Hct MCV MCH RDW Seg Neuts % (Manual) Lymphocytes % (Manual) Seg Neutrophils # Man Lymphocytes # (Manual) PT INR D-Dimer Heparin Anti-Xa Level POC ABG pH POC ABG pCO2 POC ABG pO2 Sodium Potassium Chloride Carbon Dioxide BUN Creatinine Glucose POC Glucose 193 H 247 H 225 H Lactic Acid Calcium Phosphorus Total Bilirubin NT-Pro-B Natriuret Pep Total Protein Albumin Urine WBC (Auto) Urine Creatinine 07/31/18 07/31/18 08/01/18 18:12 21:34 02:00 WBC RBC Hgb Hct MCV MCH RDW Seg Neuts % (Manual) Lymphocytes % (Manual) Seg Neutrophils # Man Lymphocytes # (Manual) PT INR D-Dimer Heparin Anti-Xa Level POC ABG pH POC ABG pCO2 POC ABG pO2 Sodium Potassium Chloride Carbon Dioxide BUN Creatinine Glucose POC Glucose 197 H 204 H 239 H Lactic Acid Calcium Phosphorus Total Bilirubin NT-Pro-B Natriuret Pep Total Protein Albumin Urine WBC (Auto) Urine Creatinine 08/01/18 08/01/18 08/01/18 04:13 04:37 05:29 WBC RBC Hgb Hct MCV MCH RDW Seg Neuts % (Manual) Lymphocytes % (Manual) Seg Neutrophils # Man Lymphocytes # (Manual) PT INR D-Dimer Heparin Anti-Xa Level POC ABG pH 7.296 L POC ABG pCO2 81.9 H POC ABG pO2 190 H Sodium 150 H D Potassium Chloride Carbon Dioxide 37 H D BUN 37 H Creatinine 0.6 L Glucose 223 H POC Glucose 219 H Lactic Acid Calcium Phosphorus Total Bilirubin NT-Pro-B Natriuret Pep Total Protein Albumin Urine WBC (Auto) Urine Creatinine 08/01/18 08/01/18 09:28 11:00 WBC RBC Hgb Hct MCV MCH RDW Seg Neuts % (Manual) Lymphocytes % (Manual) Seg Neutrophils # Man Lymphocytes # (Manual) PT INR D-Dimer Heparin Anti-Xa Level POC ABG pH POC ABG pCO2 61.2 H POC ABG pO2 69 L Sodium Potassium Chloride Carbon Dioxide BUN Creatinine Glucose POC Glucose 185 H Lactic Acid Calcium Phosphorus Total Bilirubin NT-Pro-B Natriuret Pep Total Protein Albumin Urine WBC (Auto) Urine Creatinine Chest x-ray: image reviewed (LLL infitrate; elevated right hemidiaphragm stable; ETT in good position) Allied health notes reviewed: nursing
--- NOTE | 2018-08-01 12:24 | Consultation ---
History of Present Illness - Reason for Consult Consult date: 08/01/18 Antibiotic management Requesting physician: ASTRID TATE - History of Present Illness The patient is a 73-year-old male with COPD, peripheral vascular disease, hypertension, hyperlipidemia, seizure disorder presented to the emergency room on 07/27/2018 with complaints of shortness of breath and chest palpitations. The symptoms had developed over 1-2 days prior to admission. Here, patient was noted to be in atrial fibrillation with rapid ventricular rate, had signs and symptoms suggestive of possible sepsis. He developed progressive respiratory failure requiring intubation and mechanical ventilation. He was initially started on ceftriaxone and vancomycin. Infectious diseases was consulted today for antibiotic recommendations. Patient was noted to have fevers up to 102F initially in the hospital stay, now afebrile. Patient is currently intubated on the ventilator, unable to provide history and review of systems. Chart was reviewed in detail and summarized. History was obtained also from his significant other at the bedside. Review of Systems: cannot be obtained due to sedation, intubation. Past History Past Medical History: CAD, COPD, hypertension, hyperlipidemia, PVD Past Surgical History: Other (Right leg surgery) Social history: , lives with family. denies: smoking, alcohol abuse, prescription drug abuse Family history: hypertension Medications and Allergies Allergies Allergy/AdvReac Type Severity Reaction Status Date / Time No Known Allergies Allergy Verified 12/12/13 06:46 Home Medications Medication Instructions Recorded Confirmed Last Taken Type Pravastatin Sodium 40 mg PO DAILY 12/12/13 07/27/18 07/27/18 History Clopidogrel [Plavix] 75 mg PO DAILY #30 tablet 04/03/15 07/27/18 07/27/18 Rx amLODIPine [Norvasc] 10 mg PO DAILY #30 tablet 04/03/15 07/27/18 07/27/18 Rx Fluticasone/Salmeterol [Advair 1 puff IH BID 12/31/15 07/27/18 07/27/18 History Diskus 250-50 mcg] ALBUTEROL Inhaler (OR & NICU) 2 puff IH QID PRN 07/27/18 07/27/18 Unknown History [Proair] Aspirin [Aspirin BABY CHEW TAB] 81 mg PO DAILY 07/27/18 07/27/18 07/27/18 History Cyanocobalamin (Vitamin B-12) 2,500 mcg PO DAILY 07/27/18 07/27/18 07/27/18 History [Vitamin B12] [place]-3S/Dha/Epa/Fish Oil/D3 [Fish 1 each PO DAILY 07/27/18 07/27/18 07/27/18 History Dbe-Zeuwq-2-Vit D Softgel] Active Meds: Active Medications Acetaminophen (Tylenol) 650 mg HI Q4H PRN PRN Reason: Fever >101 Last Admin: 07/28/18 05:29 Dose: 650 mg Documented by: Amiodarone HCl (Cordarone) 200 mg PO BID [facility] Last Admin: 08/01/18 10:54 Dose: 200 mg Documented by: Lipase/Protease/Amylase (Pancreaze Dr 10,500 Unit) 1 each FEEDTUBE PRN PRN PRN Reason: For Clogged Feeding Tube Arformoterol Tartrate (Brovana Nebu) 15 mcg IH Q12HRT [facility] Last Admin: 08/01/18 07:30 Dose: 15 mcg Documented by: Budesonide (Pulmicort) 0.5 mg IH Q12HRT [facility] Last Admin: 08/01/18 07:30 Dose: 0.5 mg Documented by: Clopidogrel Bisulfate (Plavix) 75 mg PO DAILY [facility] Last Admin: 08/01/18 10:54 Dose: 75 mg Documented by: Cyanocobalamin (Vitamin B-12) 2,500 mcg PO QDAY [facility] Last Admin: 08/01/18 10:55 Dose: 2,500 mcg Documented by: Diltiazem HCl (Cardizem) 60 mg PO Q6HR [facility] Last Admin: 08/01/18 06:53 Dose: 60 mg Documented by: Famotidine (Pepcid) 20 mg PO BID [facility] Last Admin: 08/01/18 10:54 Dose: 20 mg Documented by: Hydrophilic Ointment (Vaseline Lip Therapy) 1 applic TP Q2HR PRN PRN Reason: Dry Lips Heparin Sodium/Sodium Chloride (Heparin/ 0.45% Nacl-25,000 Unit/500 Ml) 25,000 unit in 500 mls @ 24 mls/hr IV TITR [facility]; Protocol Last Admin: 08/01/18 08:19 Dose: 1,800 units/hr, 36 mls/hr Documented by: Propofol (Diprivan 10 Mg/Ml) 1,000 mg in 100 mls @ 2.531 mls/hr IV TITR [facility]; Protocol Last Titration: 08/01/18 01:30 Dose: 10 mcg/kg/min, 5.062 mls/hr Documented by: Azithromycin 500 mg/ Sodium (Chloride) 250 mls @ 250 mls/hr IV Q24HR [facility] Last Admin: 08/01/18 10:54 Dose: 250 mls/hr Documented by: Cefepime HCl (Maxipime/Ns 2 Gm/100 Ml) 2 gm in 100 mls @ 200 mls/hr IV Q12HR [facility]; Protocol Insulin Human Lispro (Humalog) 0 unit SUB-Q Q4HR [facility]; Protocol Last Admin: 08/01/18 10:59 Dose: 1 unit Documented by: Methylprednisolone Sodium Succinate (Solu-Medrol) 40 mg IV Q8HR [facility] Last Admin: 08/01/18 06:53 Dose: 40 mg Documented by: Multi-Ingred Cream/Lotion/Oil/Oint (Artificial Tears Ophth Oint) 1 applic OU Q4HR PRN PRN Reason: Dry Eye(s) Pravastatin Sodium (Pravachol) 40 mg PO DAILY [facility] Last Admin: 08/01/18 10:54 Dose: 40 mg Documented by: Simple Syrup (Simple Syrup) 15 ml FEEDTUBE PRN PRN PRN Reason: Hypoglycemia Simple Syrup (Simple Syrup) 30 ml FEEDTUBE PRN PRN PRN Reason: Hypoglycemia Sodium Bicarbonate (Sodium Bicarbonate) 325 mg FEEDTUBE PRN PRN PRN Reason: For Clogged Feeding Tube Sodium Chloride (Sodium Chloride Flush Syringe 10 Ml) 10 ml IV BID [facility] Last Admin: 08/01/18 10:55 Dose: 10 ml Documented by: Sodium Chloride (Sodium Chloride Flush Syringe 10 Ml) 10 ml IV PRN PRN PRN Reason: LINE FLUSH Physical Examination - Physical Exam Narrative exam: Physical Exam: Constitutional: sedated, intubated Head, Ears, Nose: Normocephalic, atraumatic. External ears, nose normal Eyes: Conjunctivae/corneas clear. No icterus. No ptosis. Neck: Supple, no meningeal signs Oral: intubated Cardiovascular: S1, S2 normal. Respiratory: Good air entry, clear to auscultation bilaterally GI: Soft, non-tender; bowel sounds normal. No peritoneal signs Musculoskeletal: No pedal edema, no cyanosis. Skin: No rash or abscess Hem/Lymphatic: No palpable cervical or supraclavicular nodes. No lymphangitis Psych: sedated. no agitation Neurological: sedated, intubated, exam limited - Constitutional Vitals: Vital Signs Temp Pulse Resp BP Pulse Ox 97.9 F 76 20 143/77 93 08/01/18 03:57 08/01/18 08:52 08/01/18 07:30 08/01/18 07:32 08/01/18 07:32 Temperature -Last 24 Hours Temperature 97.9 F Temperature 98.8 F Temperature 99.3 F Temperature 99.4 F Results - Labs CBC & Chem 7: 07/31/18 03:14 08/01/18 04:13 Labs: Abnormal lab results 07/31/18 07/31/18 07/31/18 Range/Units 14:07 18:12 21:34 POC ABG pH (7.35-7.45) POC ABG pCO2 (35-45) POC ABG pO2 (80-105) Sodium (137-145) mmol/L Carbon Dioxide (22-30) mmol/L BUN (9-20) mg/dL Creatinine (0.8-1.5) mg/dL Glucose (75-100) mg/dL POC Glucose 225 H 197 H 204 H (70-105) 08/01/18 08/01/18 08/01/18 Range/Units 02:00 04:13 04:37 POC ABG pH 7.296 L (7.35-7.45) POC ABG pCO2 81.9 H (35-45) POC ABG pO2 190 H (80-105) Sodium 150 H D (137-145) mmol/L Carbon Dioxide 37 H D (22-30) mmol/L BUN 37 H (9-20) mg/dL Creatinine 0.6 L (0.8-1.5) mg/dL Glucose 223 H (75-100) mg/dL POC Glucose 239 H (70-105) 08/01/18 08/01/18 08/01/18 Range/Units 05:29 09:28 11:00 POC ABG pH (7.35-7.45) POC ABG pCO2 61.2 H (35-45) POC ABG pO2 69 L (80-105) Sodium (137-145) mmol/L Carbon Dioxide (22-30) mmol/L BUN (9-20) mg/dL Creatinine (0.8-1.5) mg/dL Glucose (75-100) mg/dL POC Glucose 219 H 185 H (70-105) - Imaging and Cardiology EKG: report reviewed, image reviewed Chest x-ray: report reviewed, image reviewed (ET tube +, shows evidence of CHF and also left sided pneumonia) Assessment and Plan Cultures: 08/04/2018 tracheal aspirate culture: Pseudomonas aeruginosa, MSSA 07/28/2018 blood culture: 4 out of 4 bottles positive for Streptococcus anginosus 07/28/2018 fungal blood culture: In progress 07/29/2018 urine culture: No growth A/P: 73-year-old male with COPD, peripheral vascular disease, hypertension, hyperlipidemia, seizure disorder admitted with: 1) Sepsis secondary to Streptococcus anginosus bacteremia: Present on admission. Source is unclear. Patient does have evidence of pneumonia however sputum cultures are not concordant and are growing pseudomonas aeruginosa and MSSA. 4 out of 4 bottles were positive, hence, recommend REGAN to evaluate heart valves. 2) Acute respiratory failure secondary to congestive heart failure and pneumonia: Will switch antibiotics to IV cefepime. Discontinue ceftriaxone and vancomycin. 3) CRALEE, present on admission, now resolved. Recs: Discontinue ceftriaxone and vancomycin Started IV cefepime 2 g every 12 hours repeat blood cultures ordered Recommend REGAN to evaluate heart valves given the high-grade bacteremia and unclear source Plan discussed with Dr. Tate. Will follow along. MD Ruth [facility] C: [phone] O: [phone] F: [phone]
--- NOTE | 2018-08-01 13:57 | Progress Note ---
Assessment and Plan Cont present cardiac management. Cont heparin gtt and plan to convert to OAC prior to hospital discharge. Vent weaning per pulmonary. The patient has been seen in conjunction with Dr. Echols who agrees with the assessment and plan of care. - Patient Problems (1) Atrial fibrillation with RVR Current Visit: Yes Status: Acute (2) Acute respiratory failure Current Visit: Yes Status: Acute Qualifiers: Respiratory failure complication: hypoxia Qualified Code(s): J96.01 - Acute respiratory failure with hypoxia (3) COPD (chronic obstructive pulmonary disease) Current Visit: Yes Status: Chronic (4) Pneumonia Current Visit: Yes Status: Acute (5) Nonobstructive atherosclerosis of coronary artery Current Visit: Yes Status: Chronic (6) Hypertension Current Visit: Yes Status: Chronic Qualifiers: Hypertension type: essential hypertension Qualified Code(s): I10 - Essential (primary) hypertension (7) Hyperlipemia Current Visit: Yes Status: Chronic Qualifiers: Hyperlipidemia type: Mixed hyperlipidemia (8) Peripheral vascular disease Current Visit: Yes Status: Chronic (9) CARLEE (acute kidney injury) Current Visit: Yes Status: Acute (10) Lactic acid acidosis Current Visit: Yes Status: Acute Subjective Date of service: 08/01/18 Principal diagnosis: Acute hypoxemic respiratory failure; A-fib with RVR; Possible CHF; H/O DVT Interval history: pt remains intubated, [facility]. heparin gtt infusing. Objective Last Vital Signs Temp 97.9 F 08/01/18 03:57 Pulse 76 08/01/18 08:52 Resp 20 08/01/18 07:30 BP 143/77 08/01/18 07:32 Pulse Ox 93 08/01/18 07:32 - Physical Examination General: Other (intubated, sedated) HEENT: Positive: Normocephaly, Mucus Membranes Moist Neck: Positive: neck supple, trachea midline Cardiac: Positive: Reg Rate and Rhythm, S1/S2 Lungs: Positive: Ventilated Respirations Neuro: Positive: Other (intubated, sedated ) Skin: Negative: Rash, Wound Musculoskeletal: No Pain Extremities: Absent: edema - Labs and Meds Lipids 08/01/18 Range/Units 04:13 Triglycerides 142 (2-149) mg/dL Comprehensive Metabolic Panel 08/01/18 Range/Units 04:13 Sodium 150 H D (137-145) mmol/L Potassium 4.4 (3.6-5.0) mmol/L Chloride 105.3 (98-107) mmol/L Carbon Dioxide 37 H D (22-30) mmol/L BUN 37 H (9-20) mg/dL Creatinine 0.6 L (0.8-1.5) mg/dL Glucose 223 H (75-100) mg/dL Calcium 9.8 (8.4-10.2) mg/dL - Imaging and Cardiology EKG: report reviewed, image reviewed Echo: report reviewed ( 07/27/2018 EF 60-65%, asymmetric septal hypertrophy, mi ld TR. 05/2017 showed EF 55-60%, grade 1 diastolic dysfunction, mild TR, RVSP 22mmHg. 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 Treat medically. ) - Telemetry EKG Rhythm: Sinus Rhythm - Allied health notes Allied health notes reviewed: nursing
[2018-08-01] MEDS: MAXIPIME/NS 2 GM/100 ML 2 GM/100 ML BAG IV SCH ×2 (16:20→21:31)
[2018-08-01] MEDS: fentaNYL DRIP Premix 2,000 MCG/100 ML BAG IV SCH (20:36)
[2018-08-01] MEDS ORDERED: LANTUS SUB-Q SCH (22:00)
--- NOTE | 2018-08-02 02:40 | XRay Report ---
FINAL REPORT EXAM: XR CHEST 1V AP HISTORY: follow up respiratory failure TECHNIQUE: A portable upright view the chest was obtained and compared to the study of 08/01/2018. FINDINGS: The heart is mildly enlarged. The lungs remain diffusely congested with bilateral effusions. There is stable right apical pleural thickening. The tip of the ET tube is 4 cm above the madi. The tip of the NG tube is in the upper stomach. The bones and soft tissues otherwise are unchanged IMPRESSION: Stable cardiomegaly with pulmonary vascular congestion and bilateral small effusions. Stable right apical pleural thickening.
[2018-08-02] MEDS: HumaLOG SUB-Q SCH ×6 (02:46→22:37)
[2018-08-02 05:13] LABS: Hematocrit 33.7 % (35.5-45.6); Hemoglobin 10.7 gm/dl (11.8-15.2)
[2018-08-02 05:39] LABS: BUN/Creatinine Ratio 63; Blood Urea Nitrogen 38 mg/dL (9-20); Calcium 9.8 mg/dL (8.4-10.2); Hemolysis Index 2
[2018-08-02] MEDS: CARDIZEM PO SCH ×3 (06:27→18:07)
[2018-08-02] MEDS: SOLU-Medrol IV SCH ×3 (06:32→22:29)
[2018-08-02] MEDS: PULMICORT IH SCH ×2 (07:28→20:30)
[2018-08-02] MEDS: BROVANA NEBU IH SCH ×2 (07:28→20:30)
--- NOTE | 2018-08-02 09:29 | Progress Note ---
Assessment and Plan 1. Acute kidney injury: Likely Vasomotor / hemodynamic CARLEE in the setting of A.fib with RVR. Continue IV fluids. Renal function is better. 2. FEN: Hypernatremia, continue water flushes. Appears euvolemic. On tube feeding. Monitor. 3. A.fib: Rate controlled. Amiodarone and Heparin. 4. Respiratory failure: On vent. 5. Sepsis. Subjective Date of service: 08/02/18 Principal diagnosis: AFib Interval history: Patient was seen and examined at the bedside. Objective - Vital Signs Vital signs: Vital Signs - 12hr 08/01/18 08/01/18 08/01/18 21:30 21:45 22:00 Pulse Rate 63 65 65 Pulse Rate [ Anterior Bilateral Throughout] Respiratory 12 12 12 Rate Respiratory Rate [Anterior Bilateral Throughout] Blood Pressure 106/54 108/55 106/53 O2 Sat by Pulse 97 96 97 Oximetry 08/01/18 08/01/18 08/01/18 22:15 22:30 22:45 Pulse Rate 66 64 64 Pulse Rate [ Anterior Bilateral Throughout] Respiratory 12 12 12 Rate Respiratory Rate [Anterior Bilateral Throughout] Blood Pressure 114/55 114/53 110/55 O2 Sat by Pulse 96 96 96 Oximetry 08/01/18 08/01/18 08/01/18 23:00 23:04 23:21 Pulse Rate 65 66 66 Pulse Rate [ Anterior Bilateral Throughout] Respiratory 12 12 Rate Respiratory Rate [Anterior Bilateral Throughout] Blood Pressure 110/54 110/54 110/54 O2 Sat by Pulse 96 96 Oximetry 08/01/18 08/01/18 08/02/18 23:30 23:48 00:00 Pulse Rate 66 70 75 Pulse Rate [ Anterior Bilateral Throughout] Respiratory 12 20 Rate Respiratory Rate [Anterior Bilateral Throughout] Blood Pressure 113/55 113/55 102/60 O2 Sat by Pulse 96 93 91 Oximetry 08/02/18 08/02/18 08/02/18 00:13 00:30 01:00 Pulse Rate 81 75 72 Pulse Rate [ Anterior Bilateral Throughout] Respiratory 22 21 Rate Respiratory Rate [Anterior Bilateral Throughout] Blood Pressure 102/60 131/62 O2 Sat by Pulse 90 90 Oximetry 08/02/18 08/02/18 08/02/18 01:30 02:00 02:30 Pulse Rate 72 69 65 Pulse Rate [ Anterior Bilateral Throughout] Respiratory 18 19 16 Rate Respiratory Rate [Anterior Bilateral Throughout] Blood Pressure 123/60 136/66 121/60 O2 Sat by Pulse 91 91 91 Oximetry 08/02/18 08/02/18 08/02/18 03:00 03:30 04:00 Pulse Rate 65 64 64 Pulse Rate [ Anterior Bilateral Throughout] Respiratory 19 16 15 Rate Respiratory Rate [Anterior Bilateral Throughout] Blood Pressure 117/58 117/58 115/60 O2 Sat by Pulse 92 91 91 Oximetry 08/02/18 08/02/18 08/02/18 04:30 05:00 05:30 Pulse Rate 64 63 64 Pulse Rate [ Anterior Bilateral Throughout] Respiratory 16 18 16 Rate Respiratory Rate [Anterior Bilateral Throughout] Blood Pressure 115/61 118/61 118/62 O2 Sat by Pulse 92 92 92 Oximetry 08/02/18 08/02/18 08/02/18 06:00 06:27 07:29 Pulse Rate 65 65 Pulse Rate [ 64 Anterior Bilateral Throughout] Respiratory 17 Rate Respiratory 13 Rate [Anterior Bilateral Throughout] Blood Pressure 121/63 121/63 O2 Sat by Pulse 93 Oximetry 08/02/18 07:32 Pulse Rate 65 Pulse Rate [ Anterior Bilateral Throughout] Respiratory Rate Respiratory Rate [Anterior Bilateral Throughout] Blood Pressure 121/63 O2 Sat by Pulse 952 H Oximetry - General Appearance General appearance: well-developed, appears stated age, sedated on ventilator, intubated EENT: ATNC, PERRL Neck: supple Respiratory: Present: Clear to Ascultation Cardiology: regular, S1S2, no murmurs Gastrointestinal: normoactive bowel sounds, no tenderness, no distended Integumentary: no rash, warm and dry Neurologic: other (sedated) Musculoskeletal: other (no edema) - Lab 08/02/18 04:45 08/02/18 04:45 Most recent lab results Calcium 9.8 mg/dL (8.4-10.2) 08/02/18 04:45 Phosphorus 3.60 mg/dL (2.5-4.5) 08/02/18 04:45 Magnesium 2.20 mg/dL (1.7-2.3) 07/31/18 03:14 Urine Creatinine 72.3 mg/dL (0.1-20.0) H 07/29/18 09:24 Urine Sodium 12 mmol/L 07/29/18 09:24 Medications & Allergies - Medications Allergies/Adverse Reactions: Allergies No Known Allergies Allergy (Verified 12/12/13 06:46) Home Medications: Home Medications Medication Instructions Recorded Confirmed Last Taken Type Pravastatin Sodium 40 mg PO DAILY 12/12/13 07/27/18 07/27/18 History Clopidogrel [Plavix] 75 mg PO DAILY #30 tablet 04/03/15 07/27/18 07/27/18 Rx amLODIPine [Norvasc] 10 mg PO DAILY #30 tablet 04/03/15 07/27/18 07/27/18 Rx Fluticasone/Salmeterol [Advair 1 puff IH BID 12/31/15 07/27/18 07/27/18 History Diskus 250-50 mcg] ALBUTEROL Inhaler (OR & NICU) 2 puff IH QID PRN 07/27/18 07/27/18 Unknown History [Proair] Aspirin [Aspirin BABY CHEW TAB] 81 mg PO DAILY 07/27/18 07/27/18 07/27/18 History Cyanocobalamin (Vitamin B-12) 2,500 mcg PO DAILY 07/27/18 07/27/18 07/27/18 History [Vitamin B12] [place]-3S/Dha/Epa/Fish Oil/D3 [Fish 1 each PO DAILY 07/27/18 07/27/18 07/27/18 History Sfj-Oekvk-1-Vit D Softgel] Active Medications: Generic Name Dose Route Start Last Admin Trade Name Freq PRN Reason Stop Dose Admin Acetaminophen 650 mg 07/28/18 04:34 07/28/18 05:29 Tylenol SC 650 mg Q4H PRN Administration Fever >101 Amiodarone HCl 200 mg 07/29/18 14:00 08/01/18 21:31 Cordarone PO 200 mg BID [facility] Administration Lipase/Protease/Amylase 1 each 07/28/18 13:57 Pancreana [place] 10,500 Unit FEEDTUBE PRN PRN For Clogged Feeding Tube Arformoterol Tartrate 15 mcg 07/27/18 20:00 08/02/18 07:28 Brovana Nebu IH 15 mcg Q12HRT [facility] Administration Budesonide 0.5 mg 07/27/18 20:00 08/02/18 07:28 Pulmicort IH 0.5 mg Q12HRT [facility] Administration Clopidogrel Bisulfate 75 mg 07/28/18 10:00 08/01/18 10:54 Plavix PO 75 mg DAILY [facility] Administration Cyanocobalamin 2,500 mcg 07/28/18 10:00 08/01/18 10:55 Vitamin B-12 PO 2,500 mcg QDAY [facility] Administration Diltiazem HCl 60 mg 07/27/18 18:00 08/02/18 06:27 Cardizem PO 60 mg Q6HR [facility] Administration Famotidine 20 mg 08/01/18 10:00 08/01/18 21:31 Pepcid PO 20 mg BID [facility] Administration Hydrophilic Ointment 1 applic 07/27/18 20:09 Vaseline Lip Therapy TP Q2HR PRN Dry Lips Heparin Sodium/Sodium Chloride 25,000 unit in 500 mls @ 24 mls/hr 07/27/18 17:00 08/02/18 01:50 Heparin/ 0.45% Nacl-25,000 Unit/500 Ml IV 2,000 units/hr TITR [facility] 40 mls/hr Titration Protocol 1,200 UNITS/HR Propofol 1,000 mg in 100 mls @ 2.531 mls/hr 07/27/18 21:00 08/01/18 23:19 Diprivan 10 Mg/Ml IV 10 mcg/kg/min TITR [facility] 5.062 mls/hr Administration Protocol 5 MCG/KG/MIN Azithromycin 500 mg/ Sodium 250 mls @ 250 mls/hr 07/28/18 13:00 08/01/18 10:54 Chloride IV 250 mls/hr Q24HR [facility] Administration Cefepime HCl 2 gm in 100 mls @ 200 mls/hr 08/01/18 14:00 08/01/18 21:31 Maxipime/Ns 2 Gm/100 Ml IV 200 mls/hr Q12HR [facility] Administration Protocol Fentanyl Citrate 2,000 mcg in 100 mls @ 2.285 mls/hr 08/01/18 14:00 08/02/18 00:14 Fentanyl Drip Premix IV 1 mcg/kg/hr TITR [facility] 4.57 mls/hr Titration Protocol 0.5 MCG/KG/HR Insulin Glargine 5 units 08/01/18 22:00 08/01/18 21:55 Lantus SUB-Q 5 units QHS [facility] Administration Insulin Human Lispro 0 unit 07/29/18 07:00 08/02/18 05:52 Humalog SUB-Q Not Given Q4HR [facility] Protocol Methylprednisolone Sodium Succinate 40 mg 07/28/18 14:00 08/02/18 06:32 Solu-Medrol IV 40 mg Q8HR [facility] Administration Multi-Ingred Cream/Lotion/Oil/Oint 1 applic 07/27/18 20:09 Artificial Tears Ophth Oint OU Q4HR PRN Dry Eye(s) Pravastatin Sodium 40 mg 07/28/18 10:00 08/01/18 10:54 Pravachol PO 40 mg DAILY [facility] Administration Simple Syrup 15 ml 07/28/18 13:57 Simple Syrup FEEDTUBE PRN PRN Hypoglycemia Simple Syrup 30 ml 07/28/18 13:57 Simple Syrup FEEDTUBE PRN PRN Hypoglycemia Sodium Bicarbonate 325 mg 07/28/18 13:57 Sodium Bicarbonate FEEDTUBE PRN PRN For Clogged Feeding Tube Sodium Chloride 10 ml 07/27/18 22:00 08/01/18 21:31 Sodium Chloride Flush Syringe 10 Ml IV 10 ml BID [facility] Administration Sodium Chloride 10 ml 07/27/18 15:59 Sodium Chloride Flush Syringe 10 Ml IV PRN PRN LINE FLUSH
[2018-08-02] MEDS ORDERED: HURRICAINE ONE 20% TOPICAL SPRAY MM SCH (11:00)
[2018-08-02] MEDS: MAXIPIME/NS 2 GM/100 ML 2 GM/100 ML BAG IV SCH ×2 (11:55→22:38)
[2018-08-02] MEDS: PLAVIX PO SCH (11:56)
[2018-08-02] MEDS: PEPCID PO SCH ×2 (11:56→22:27)
[2018-08-02] MEDS: VITAMIN B-12 PO SCH (11:56)
[2018-08-02] MEDS: ZITHROMAX 500 MG in NACL 0.9% 250ML 250 ML IV SCH (12:02)
--- NOTE | 2018-08-02 12:11 | Progress Note ---
Assessment and Plan S/p REGAN this AM which was negative for endocarditis. Cont present cardiac management. Cont heparin gtt and plan to convert to OAC prior to hospital discharge. Vent weaning per pulmonary. The patient has been seen in conjunction with Dr. Echols who agrees with the assessment and plan of care. - Patient Problems (1) Atrial fibrillation with RVR Current Visit: Yes Status: Acute (2) Acute respiratory failure Current Visit: Yes Status: Acute Qualifiers: Respiratory failure complication: hypoxia Qualified Code(s): J96.01 - Acute respiratory failure with hypoxia (3) COPD (chronic obstructive pulmonary disease) Current Visit: Yes Status: Chronic (4) Pneumonia Current Visit: Yes Status: Acute (5) Nonobstructive atherosclerosis of coronary artery Current Visit: Yes Status: Chronic (6) Hypertension Current Visit: Yes Status: Chronic Qualifiers: Hypertension type: essential hypertension Qualified Code(s): I10 - Essential (primary) hypertension (7) Hyperlipemia Current Visit: Yes Status: Chronic Qualifiers: Hyperlipidemia type: Mixed hyperlipidemia (8) Peripheral vascular disease Current Visit: Yes Status: Chronic (9) CARLEE (acute kidney injury) Current Visit: Yes Status: Acute (10) Lactic acid acidosis Current Visit: Yes Status: Acute Subjective Date of service: 08/02/18 Principal diagnosis: AFib Interval history: pt remains intubated, in SR with freq PACs on telemetry. heparin gtt infusing. Objective Last Vital Signs Temp 97.9 F 08/01/18 03:57 Pulse 66 08/02/18 11:48 Resp 16 08/02/18 11:48 BP 127/64 08/02/18 11:48 Pulse Ox 98 08/02/18 11:48 - Physical Examination General: Other (intubated, sedated) HEENT: Positive: Normocephaly, Mucus Membranes Moist Neck: Positive: neck supple, trachea midline Cardiac: Positive: Reg Rate and Rhythm, S1/S2 Lungs: Positive: Decreased Breath Sounds, Oxygen, Ventilated Respirations Neuro: Positive: Other (intubated, sedated ) Skin: Negative: Rash, Wound Musculoskeletal: No Pain Extremities: Absent: edema - Labs and Meds CBC 08/02/18 Range/Units 04:45 Hgb 10.7 L (11.8-15.2) gm/dl Hct 33.7 L (35.5-45.6) % Plt Count 261 (140-440) K/mm3 Comprehensive Metabolic Panel 08/02/18 Range/Units 04:45 Sodium 152 H (137-145) mmol/L Potassium 4.8 (3.6-5.0) mmol/L Chloride 108.1 H (98-107) mmol/L Carbon Dioxide 39 H (22-30) mmol/L BUN 38 H (9-20) mg/dL Creatinine 0.6 L (0.8-1.5) mg/dL Glucose 226 H (75-100) mg/dL Calcium 9.8 (8.4-10.2) mg/dL - Imaging and Cardiology EKG: report reviewed, image reviewed Echo: report reviewed ( 07/27/2018 EF 60-65%, asymmetric septal hypertrophy, mild TR. 05/2017 showed EF 55-60%, grade 1 diastolic dysfunction, mild TR, RVSP 22mmHg. 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 Treat medically. ) - Allied health notes Allied health notes reviewed: nursing
[2018-08-02] MEDS: CORDARONE PO SCH ×2 (12:12→22:27)
[2018-08-02] MEDS ORDERED: LANTUS SUB-Q ONE (13:00)
[2018-08-02] MEDS: DIPRIVAN 10 MG/ML 1,000 MG/100 ML BOTTLE IV SCH (13:30)
--- NOTE | 2018-08-02 14:02 | XRay Report ---
AP ABDOMEN: HISTORY: Dobbhoff tube placement. The nasogastric tube has been replaced with a Dobbhoff tube which terminates in the antrum of the stomach. The abdominal gas pattern is unremarkable. No masses or organomegaly is identified and there is no gross evidence of free air or fluid. No significant soft tissue calcifications are noted. IMPRESSION: Unremarkable abdomen. Dobbhoff tube as described.
--- NOTE | 2018-08-02 14:18 | Progress Note ---
Assessment and Plan Acute hypoxemic respiratory failure, on mechanical ventilatory support. Atrial fibrillation with rapid ventricular response. Possible congestive heart failure with an acute exacerbation. 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 Elevated D-dimer. Leukocytosis. Sepsis syndrome with hypotension and fevers this morning. Chronic obstructive lung disease with an acute exacerbation. Hypernatremia Peripheral vascular disease. Mixed acidosis, respiratory and metabolic. Acute kidney injury. Lactic acidosis. Elevated BNP level of 3913. History of hypertension. History of arthritis. - continue set rate to 12 cmH20 and repeat ABG prn - continue daily SBT's as tolerated (did not tolerate today) - continue free water started for hypernatremia (250 mls q4h X 72 hours) - Added seroquel re: agitation / delirium (100 mg bid) - VAP bundle addressed - titrate sedatives for RASS 0 to -1 - PT/OT evaluation ongoing (unable to treat today) - continue enteral nutrition as tolerated - continue supplemental oxygen to keep sats > 90% - aspiration precautions - continue bronchodilators with pulmonary hygiene per RT - continue therapeutic anticoagulation - continue stress ulcer prophylaxis - continue Antibiotics to complete course - continue Mobility protocol for pressure ulcer prevention - continue pother care per attending / other consultants .... re-evaluate in am & prn FULL CODE STATUS CONDITION: CRITICAL The high probability of a clinically significant, sudden or life-threatening deterioration of the [respiratory, cardiovascular, renal] system(s) required my full and direct attention, intervention and personal management. The aggregate critical care time was [32] minutes without overlap. Time includes spent on; [x] Data Review and interpretation [x] Patient assessment and monitoring of vital signs [x] Documentation [x] Medication orders and management Subjective Date of service: 08/01/18 Principal diagnosis: Acute hypoxemic respiratory failure; A-fib with RVR; Possible CHF; H/O DVT Interval history: Subjective Date of service: 08/02/18 Principal diagnosis: Acute hypoxemic respiratory failure; A-fib with RVR; Possible CHF; H/O DVT Interval history: Patient is seen today for: Acute hypoxemic respiratory failure on MVS; Atrial fibrillation with RVR; Possible congestive heart failure with an acute exacerbation; History of deep venous thrombosis; Elevated D-dimer. Seen and examined at bedside; 24hour events reviewed; nursing and respiratory care staff consulted; no adverse overnight events reported to me; remains on MVS; remains a difficult wean; continues to remains agitated during sedation holidays; tolerating tube feeds; No N/V/F/C reported Objective Vital Signs - 12hr 08/02/18 08/02/18 08/02/18 02:30 03:00 03:30 Pulse Rate 65 65 64 Pulse Rate [ Anterior Bilateral Throughout] Respiratory 16 19 16 Rate Respiratory Rate [Anterior Bilateral Throughout] Blood Pressure 121/60 117/58 117/58 O2 Sat by Pulse 91 92 91 Oximetry 08/02/18 08/02/18 08/02/18 04:00 04:30 05:00 Pulse Rate 64 64 63 Pulse Rate [ Anterior Bilateral Throughout] Respiratory 15 16 18 Rate Respiratory Rate [Anterior Bilateral Throughout] Blood Pressure 115/60 115/61 118/61 O2 Sat by Pulse 91 92 92 Oximetry 08/02/18 08/02/18 08/02/18 05:30 06:00 06:27 Pulse Rate 64 65 65 Pulse Rate [ Anterior Bilateral Throughout] Respiratory 16 17 Rate Respiratory Rate [Anterior Bilateral Throughout] Blood Pressure 118/62 121/63 121/63 O2 Sat by Pulse 92 93 Oximetry 08/02/18 08/02/18 08/02/18 06:30 07:00 07:29 Pulse Rate 65 64 Pulse Rate [ 64 Anterior Bilateral Throughout] Respiratory 16 16 Rate Respiratory 13 Rate [Anterior Bilateral Throughout] Blood Pressure 121/61 116/59 O2 Sat by Pulse 93 91 Oximetry 08/02/18 08/02/18 08/02/18 07:30 07:32 08:00 Pulse Rate 62 65 60 Pulse Rate [ Anterior Bilateral Throughout] Respiratory 12 12 Rate Respiratory Rate [Anterior Bilateral Throughout] Blood Pressure 115/59 121/63 102/56 O2 Sat by Pulse 94 95 94 Oximetry 08/02/18 08/02/18 08/02/18 08:30 09:00 09:30 Pulse Rate 62 61 61 Pulse Rate [ Anterior Bilateral Throughout] Respiratory 14 15 18 Rate Respiratory Rate [Anterior Bilateral Throughout] Blood Pressure 105/57 118/61 117/60 O2 Sat by Pulse 91 91 91 Oximetry 08/02/18 08/02/18 08/02/18 10:00 10:30 11:00 Pulse Rate 66 73 66 Pulse Rate [ Anterior Bilateral Throughout] Respiratory 21 29 H 12 Rate Respiratory Rate [Anterior Bilateral Throughout] Blood Pressure 117/60 117/60 127/64 O2 Sat by Pulse 93 89 98 Oximetry 08/02/18 08/02/18 08/02/18 11:48 12:13 13:44 Pulse Rate 66 65 65 Pulse Rate [ Anterior Bilateral Throughout] Respiratory Rate Respiratory Rate [Anterior Bilateral Throughout] Blood Pressure 127/64 140/65 140/65 O2 Sat by Pulse 98 98 Oximetry Constitutional: appears uncomfortable, other (elderly looking CM, normocephalic and atraumatic with mildly increased respiratory effort) Eyes: non-icteric ENT: oropharynx moist, other (ETT 23 cm SUHAS) Neck: supple, no lymphadenopathy, no JVD, other (No thyromegaly) Effort: mildly labored Ascultation: Bilateral: diminished breath sounds, rhonchi Percussion: Bilateral: not dull Cardiovascular: irregular rhythm, other (+ systolic murmur) Gastrointestinal: hypoactive bowel sounds, soft, non-tender, non-distended, other (No palpable HSM) Integumentary: rash, other (poor [place]) Extremities: no cyanosis, pink and warm, pulses normal, no ischemia or petechiae Neurologic: normal mental status, non-focal exam (grossly), pupils equal and round, CN II-XII normal, motor strength normal and Psychiatric: mood appropriate, affect normal CBC and BMP: 08/02/18 04:45 08/02/18 04:45 ABG, PT/INR, D-dimer: ABG POC ABG pH 7.378 (7.35-7.45) 08/02/18 00:44 POC ABG pCO2 66.4 (35-45) H 08/02/18 00:44 POC ABG pO2 64 (80-105) L 08/02/18 00:44 POC ABG HCO3 39.1 08/02/18 00:44 POC ABG Total CO2 41 08/02/18 00:44 POC ABG O2 Sat 91 08/02/18 00:44 PT/INR, D-dimer PT 16.0 Sec. (12.2-14.9) H 07/27/18 17:09 INR 1.24 (0.87-1.13) H 07/27/18 17:09 D-Dimer 798.17 ng/mlDDU (0-234) H 07/27/18 15:52 Abnormal lab findings: Abnormal Labs 07/27/1818 18 12:59 12:59 12:59 WBC 15.8 H RBC Hgb Hct MCV 104 H MCH 34 H RDW 16.3 H Seg Neuts % (Manual) 88.0 H Lymphocytes % (Manual) 3.0 L Seg Neutrophils # Man 13.9 H Lymphocytes # (Manual) 0.5 L PT 17.0 H INR 1.34 H D-Dimer Heparin Anti-Xa Level POC ABG pH POC ABG pCO2 POC ABG pO2 Sodium Potassium Chloride Carbon Dioxide 21 L BUN 38 H Creatinine 1.6 H Glucose POC Glucose Lactic Acid Calcium Phosphorus Total Bilirubin 1.30 H NT-Pro-B Natriuret Pep 3913 H Total Protein 6.2 L Albumin 3.6 L Urine WBC (Auto) Urine Creatinine 07/27/18 07/27/18 07/27/18 15:52 16:12 17:09 WBC RBC Hgb Hct MCV MCH RDW Seg Neuts % (Manual) Lymphocytes % (Manual) Seg Neutrophils # Man Lymphocytes # (Manual) PT 16.0 H INR 1.24 H D-Dimer 798.17 H Heparin Anti-Xa Level POC ABG pH POC ABG pCO2 POC ABG pO2 Sodium Potassium Chloride Carbon Dioxide BUN Creatinine Glucose POC Glucose Lactic Acid 5.00 H* Calcium Phosphorus Total Bilirubin NT-Pro-B Natriuret Pep Total Protein Albumin Urine WBC (Auto) Urine Creatinine 07/27/18 07/27/18 07/27/18 17:59 18:07 21:31 WBC RBC Hgb Hct MCV MCH RDW Seg Neuts % (Manual) Lymphocytes % (Manual) Seg Neutrophils # Man Lymphocytes # (Manual) PT INR D-Dimer Heparin Anti-Xa Level POC ABG pH 7.344 L POC ABG pCO2 POC ABG pO2 36 L Sodium Potassium Chloride Carbon Dioxide BUN Creatinine Glucose POC Glucose Lactic Acid 5.20 H* 5.00 H* Calcium Phosphorus Total Bilirubin NT-Pro-B Natriuret Pep Total Protein Albumin Urine WBC (Auto) Urine Creatinine 07/27/18 07/27/18 07/27/18 21:57 22:42 23:26 WBC RBC Hgb Hct MCV MCH RDW Seg Neuts % (Manual) Lymphocytes % (Manual) Seg Neutrophils # Man Lymphocytes # (Manual) PT INR D-Dimer Heparin Anti-Xa Level POC ABG pH 7.199 L POC ABG pCO2 62.0 H POC ABG pO2 Sodium Potassium Chloride Carbon Dioxide BUN Creatinine Glucose POC Glucose Lactic Acid 4.70 H* 5.00 H* Calcium Phosphorus Total Bilirubin NT-Pro-B Natriuret Pep Total Protein Albumin Urine WBC (Auto) Urine Creatinine 07/28/18 07/28/18 07/28/18 00:45 05:40 05:58 WBC RBC Hgb Hct MCV MCH RDW Seg Neuts % (Manual) Lymphocytes % (Manual) Seg Neutrophils # Man Lymphocytes # (Manual) PT INR D-Dimer Heparin Anti-Xa Level 0.11 L POC ABG pH 7.186 L POC ABG pCO2 60.1 H POC ABG pO2 68 L Sodium Potassium Chloride Carbon Dioxide BUN Creatinine Glucose POC Glucose Lactic Acid 4.70 H* Calcium Phosphorus Total Bilirubin NT-Pro-B Natriuret Pep Total Protein Albumin Urine WBC (Auto) Urine Creatinine 07/28/18 07/28/18 07/28/18 06:01 06:01 07:19 WBC 12.5 H RBC 3.51 L Hgb 11.5 L Hct MCV 104 H MCH 33 H RDW 16.6 H Seg Neuts % (Manual) Lymphocytes % (Manual) Seg Neutrophils # Man Lymphocytes # (Manual) PT INR D-Dimer Heparin Anti-Xa Level 0.14 L POC ABG pH POC ABG pCO2 POC ABG pO2 Sodium 135 L Potassium 5.1 H Chloride 95.0 L Carbon Dioxide 21 L BUN 54 H Creatinine 2.6 H D Glucose POC Glucose Lactic Acid Calcium Phosphorus Total Bilirubin NT-Pro-B Natriuret Pep Total Protein Albumin Urine WBC (Auto) Urine Creatinine 07/28/18 07/28/18 07/28/18 07:19 09:20 11:06 WBC RBC Hgb Hct MCV MCH RDW Seg Neuts % (Manual) Lymphocytes % (Manual) Seg Neutrophils # Man Lymphocytes # (Manual) PT INR D-Dimer Heparin Anti-Xa Level POC ABG pH 7.266 L POC ABG pCO2 49.7 H POC ABG pO2 74 L Sodium Potassium Chloride Carbon Dioxide BUN Creatinine Glucose POC Glucose Lactic Acid 4.00 H* 3.90 H* Calcium Phosphorus Total Bilirubin NT-Pro-B Natriuret Pep Total Protein Albumin Urine WBC (Auto) Urine Creatinine 07/28/18 07/28/18 07/28/18 15:06 20:45 23:36 WBC RBC Hgb Hct MCV MCH RDW Seg Neuts % (Manual) Lymphocytes % (Manual) Seg Neutrophils # Man Lymphocytes # (Manual) PT INR D-Dimer Heparin Anti-Xa Level 0.15 L POC ABG pH POC ABG pCO2 POC ABG pO2 Sodium 134 L Potassium 5.2 H Chloride Carbon Dioxide BUN 58 H Creatinine 2.1 H Glucose 110 H POC Glucose 125 H Lactic Acid Calcium Phosphorus Total Bilirubin NT-Pro-B Natriuret Pep Total Protein Albumin Urine WBC (Auto) Urine Creatinine 07/29/18 07/29/18 07/29/18 01:12 04:21 04:21 WBC RBC 3.21 L Hgb 10.8 L Hct 33.0 L MCV 103 H MCH 34 H RDW 16.4 H Seg Neuts % (Manual) Lymphocytes % (Manual) 11.0 L Seg Neutrophils # Man Lymphocytes # (Manual) 1.0 L PT INR D-Dimer Heparin Anti-Xa Level 0.21 L POC ABG pH POC ABG pCO2 POC ABG pO2 Sodium Potassium Chloride Carbon Dioxide BUN 48 H Creatinine 1.6 H Glucose 166 H POC Glucose Lactic Acid Calcium Phosphorus Total Bilirubin NT-Pro-B Natriuret Pep Total Protein Albumin Urine WBC (Auto) Urine Creatinine 07/29/18 07/29/18 07/29/18 05:19 08:16 09:24 WBC RBC Hgb Hct MCV MCH RDW Seg Neuts % (Manual) Lymphocytes % (Manual) Seg Neutrophils # Man Lymphocytes # (Manual) PT INR D-Dimer Heparin Anti-Xa Level 0.25 L POC ABG pH POC ABG pCO2 POC ABG pO2 Sodium Potassium Chloride Carbon Dioxide BUN Creatinine Glucose POC Glucose 181 H Lactic Acid Calcium Phosphorus Total Bilirubin NT-Pro-B Natriuret Pep Total Protein Albumin Urine WBC (Auto) 29.0 H Urine Creatinine 07/29/18 07/29/18 07/29/18 09:24 10:00 15:03 WBC RBC Hgb Hct MCV MCH RDW Seg Neuts % (Manual) Lymphocytes % (Manual) Seg Neutrophils # Man Lymphocytes # (Manual) PT INR D-Dimer Heparin Anti-Xa Level POC ABG pH POC ABG pCO2 POC ABG pO2 Sodium Potassium Chloride Carbon Dioxide BUN Creatinine Glucose POC Glucose 195 H 167 H Lactic Acid Calcium Phosphorus Total Bilirubin NT-Pro-B Natriuret Pep Total Protein Albumin Urine WBC (Auto) Urine Creatinine 72.3 H 07/29/18 07/29/1807/30/18 17:51 21:32 01:38 WBC RBC Hgb Hct MCV MCH RDW Seg Neuts % (Manual) Lymphocytes % (Manual) Seg Neutrophils # Man Lymphocytes # (Manual) PT INR D-Dimer Heparin Anti-Xa Level POC ABG pH POC ABG pCO2 POC ABG pO2 Sodium Potassium Chloride Carbon Dioxide BUN Creatinine Glucose POC Glucose 167 H 217 H 194 H Lactic Acid Calcium Phosphorus Total Bilirubin NT-Pro-B Natriuret Pep Total Protein Albumin Urine WBC (Auto) Urine Creatinine 07/30/18 07/30/18 07/30/18 03:21 05:13 10:18 WBC RBC Hgb Hct MCV MCH RDW Seg Neuts % (Manual) Lymphocytes % (Manual) Seg Neutrophils # Man Lymphocytes # (Manual) PT INR D-Dimer Heparin Anti-Xa Level POC ABG pH POC ABG pCO2 50.3 H POC ABG pO2 78 L Sodium Potassium Chloride Carbon Dioxide BUN 41 H Creatinine Glucose 202 H POC Glucose 151 H Lactic Acid Calcium Phosphorus Total Bilirubin NT-Pro-B Natriuret Pep Total Protein Albumin Urine WBC (Auto) Urine Creatinine 07/30/18 07/30/18 07/30/18 11:29 16:28 18:12 WBC RBC Hgb Hct MCV MCH RDW Seg Neuts % (Manual) Lymphocytes % (Manual) Seg Neutrophils # Man Lymphocytes # (Manual) PT INR D-Dimer Heparin Anti-Xa Level POC ABG pH 7.326 L POC ABG pCO2 53.2 H POC ABG pO2 70 L Sodium Potassium Chloride Carbon Dioxide BUN Creatinine Glucose POC Glucose 247 H 212 H Lactic Acid Calcium Phosphorus Total Bilirubin NT-Pro-B Natriuret Pep Total Protein Albumin Urine WBC (Auto) Urine Creatinine 07/30/18 07/30/18 07/31/18 20:08 21:52 01:59 WBC RBC Hgb Hct MCV MCH RDW Seg Neuts % (Manual) Lymphocytes % (Manual) Seg Neutrophils # Man Lymphocytes # (Manual) PT INR D-Dimer Heparin Anti-Xa Level POC ABG pH POC ABG pCO2 POC ABG pO2 Sodium Potassium Chloride Carbon Dioxide BUN Creatinine Glucose POC Glucose 205 H 215 H 242 H Lactic Acid Calcium Phosphorus Total Bilirubin NT-Pro-B Natriuret Pep Total Protein Albumin Urine WBC (Auto) Urine Creatinine 07/31/18 07/31/18 07/31/18 03:14 03:14 04:55 WBC RBC Hgb 10.6 L Hct 33.2 L MCV MCH RDW Seg Neuts % (Manual) Lymphocytes % (Manual) Seg Neutrophils # Man Lymphocytes # (Manual) PT INR D-Dimer Heparin Anti-Xa Level POC ABG pH 7.331 L POC ABG pCO2 67.1 H POC ABG pO2 Sodium Potassium Chloride Carbon Dioxide BUN 36 H Creatinine 0.7 L Glucose 242 H POC Glucose Lactic Acid Calcium 10.3 H Phosphorus 2.30 L Total Bilirubin NT-Pro-B Natriuret Pep Total Protein Albumin Urine WBC (Auto) Urine Creatinine 07/31/18 07/31/18 07/31/18 05:37 10:08 14:07 WBC RBC Hgb Hct MCV MCH RDW Seg Neuts % (Manual) Lymphocytes % (Manual) Seg Neutrophils # Man Lymphocytes # (Manual) PT INR D-Dimer Heparin Anti-Xa Level POC ABG pH POC ABG pCO2 POC ABG pO2 Sodium Potassium Chloride Carbon Dioxide BUN Creatinine Glucose POC Glucose 193 H 247 H 225 H Lactic Acid Calcium Phosphorus Total Bilirubin NT-Pro-B Natriuret Pep Total Protein Albumin Urine WBC (Auto) Urine Creatinine 07/31/18 07/31/18 08/01/18 18:12 21:34 02:00 WBC RBC Hgb Hct MCV MCH RDW Seg Neuts % (Manual) Lymphocytes % (Manual) Seg Neutrophils # Man Lymphocytes # (Manual) PT INR D-Dimer Heparin Anti-Xa Level POC ABG pH POC ABG pCO2 POC ABG pO2 Sodium Potassium Chloride Carbon Dioxide BUN Creatinine Glucose POC Glucose 197 H 204 H 239 H Lactic Acid Calcium Phosphorus Total Bilirubin NT-Pro-B Natriuret Pep Total Protein Albumin Urine WBC (Auto) Urine Creatinine 08/01/18 08/01/18 08/01/18 04:13 04:37 05:29 WBC RBC Hgb Hct MCV MCH RDW Seg Neuts % (Manual) Lymphocytes % (Manual) Seg Neutrophils # Man Lymphocytes # (Manual) PT INR D-Dimer Heparin Anti-Xa Level POC ABG pH 7.296 L POC ABG pCO2 81.9 H POC ABG pO2 190 H Sodium 150 H D Potassium Chloride Carbon Dioxide 37 H D BUN 37 H Creatinine 0.6 L Glucose 223 H POC Glucose 219 H Lactic Acid Calcium Phosphorus Total Bilirubin NT-Pro-B Natriuret Pep Total Protein Albumin Urine WBC (Auto) Urine Creatinine 08/01/18 08/01/18 08/01/18 09:28 11:00 17:36 WBC RBC Hgb Hct MCV MCH RDW Seg Neuts % (Manual) Lymphocytes % (Manual) Seg Neutrophils # Man Lymphocytes # (Manual) PT INR D-Dimer Heparin Anti-Xa Level POC ABG pH POC ABG pCO2 61.2 H POC ABG pO2 69 L Sodium Potassium Chloride Carbon Dioxide BUN Creatinine Glucose POC Glucose 185 H 234 H Lactic Acid Calcium Phosphorus Total Bilirubin NT-Pro-B Natriuret Pep Total Protein Albumin Urine WBC (Auto) Urine Creatinine 08/01/18 08/02/18 08/02/18 21:54 00:08 00:44 WBC RBC Hgb Hct MCV MCH RDW Seg Neuts % (Manual) Lymphocytes % (Manual) Seg Neutrophils # Man Lymphocytes # (Manual) PT INR D-Dimer Heparin Anti-Xa Level 0.77 H POC ABG pH POC ABG pCO2 66.4 H POC ABG pO2 64 L Sodium Potassium Chloride Carbon Dioxide BUN Creatinine Glucose POC Glucose 242 H Lactic Acid Calcium Phosphorus Total Bilirubin NT-Pro-B Natriuret Pep Total Protein Albumin Urine WBC (Auto) Urine Creatinine 08/02/18 08/02/18 08/02/18 02:46 04:45 04:45 WBC RBC Hgb 10.7 L Hct 33.7 L MCV MCH RDW Seg Neuts % (Manual) Lymphocytes % (Manual) Seg Neutrophils # Man Lymphocytes # (Manual) PT INR D-Dimer Heparin Anti-Xa Level POC ABG pH POC ABG pCO2 POC ABG pO2 Sodium 152 H Potassium Chloride 108.1 H Carbon Dioxide 39 H BUN 38 H Creatinine 0.6 L Glucose 226 H POC Glucose 206 H Lactic Acid Calcium Phosphorus Total Bilirubin NT-Pro-B Natriuret Pep Total Protein Albumin Urine WBC (Auto) Urine Creatinine 08/02/18 08/02/18 05:31 09:46 WBC RBC Hgb Hct MCV MCH RDW Seg Neuts % (Manual) Lymphocytes % (Manual) Seg Neutrophils # Man Lymphocytes # (Manual) PT INR D-Dimer Heparin Anti-Xa Level 0.91 H POC ABG pH POC ABG pCO2 POC ABG pO2 Sodium Potassium Chloride Carbon Dioxide BUN Creatinine Glucose POC Glucose 214 H Lactic Acid Calcium Phosphorus Total Bilirubin NT-Pro-B Natriuret Pep Total Protein Albumin Urine WBC (Auto) Urine Creatinine Allied health notes reviewed: nursing
--- NOTE | 2018-08-02 14:52 | Progress Note ---
Assessment and Plan Cultures: 07/27/2018 tracheal aspirate culture: Pseudomonas aeruginosa, MSSA 07/28/2018 blood culture: 4 out of 4 bottles positive for Streptococcus anginosus 07/28/2018 fungal blood culture: In progress but no growth thus far 07/29/2018 urine culture: No growth 08/01/2018 blood culture: negative thus far A/P: 73-year-old male with COPD, peripheral vascular disease, hypertension, hyperlipidemia, seizure disorder admitted with: 1) Sepsis secondary to Streptococcus anginosus bacteremia: Present on admission. Source is unclear. Patient does have evidence of pneumonia however sputum cultures are not concordant and are growing pseudomonas aeruginosa and MSSA. Reviewed cardiology note, REGAN was reportedly negative. Continue abx. 2) Acute respiratory failure secondary to congestive heart failure and pneumonia: Will switch antibiotics to IV cefepime. Discontinue ceftriaxone and vancomycin. 3) CARLEE, present on admission, now resolved. Recs: continue IV cefepime 2 g every 12 hours follow up repeat blood cultures, if remain negative, would complete 7 days of abx therapy, ending 08/08/2018 Will follow along. Rhea Ro MD [facility] C: [phone] O: [phone] F: [phone] Subjective Date of service: 08/02/18 Principal diagnosis: Acute hypoxemic respiratory failure; A-fib with RVR; Possible CHF; H/O DVT Interval history: No fever. Remains intubated, on the vent. Unable to provide history. Objective - Exam Narrative Exam: Physical Exam: Constitutional: sedated, intubated Head, Ears, Nose: Normocephalic, atraumatic. External ears, nose normal Eyes: Conjunctivae/corneas clear. No icterus. No ptosis. Neck: Supple, no meningeal signs Oral: intubated. Cardiovascular: S1, S2 normal. Respiratory: Good air entry, clear to auscultation bilaterally GI: Soft, non-tender; bowel sounds normal. No peritoneal signs Musculoskeletal: No pedal edema, no cyanosis. Skin: No rash or abscess Hem/Lymphatic: No palpable cervical or supraclavicular nodes. No lymphangitis Psych: calm, no agitation Neurological: sedated, intubated, exam limited - Constitutional Vitals: Vital Signs Temp Pulse Resp BP Pulse Ox 97.9 F 65 12 140/65 98 08/01/18 03:57 08/02/18 13:44 08/02/18 11:00 08/02/18 13:44 08/02/18 13:44 - Labs CBC & Chem 7: 08/02/18 04:45 08/02/18 04:45 Labs: Abnormal lab results 08/01/18 08/01/18 08/02/18 Range/Units 17:36 21:54 00:08 Hgb (11.8-15.2) gm/dl Hct (35.5-45.6) % Heparin Anti-Xa Level 0.77 H (0.3-0.7) U.I./ml POC ABG pCO2 (35-45) POC ABG pO2 (80-105) Sodium (137-145) mmol/L Chloride (98-107) mmol/L Carbon Dioxide (22-30) mmol/L BUN (9-20) mg/dL Creatinine (0.8-1.5) mg/dL Glucose (75-100) mg/dL POC Glucose 234 H 242 H (70-105) 08/02/18 08/02/18 08/02/18 Range/Units 00:44 02:46 04:45 Hgb 10.7 L (11.8-15.2) gm/dl Hct 33.7 L (35.5-45.6) % Heparin Anti-Xa Level (0.3-0.7) U.I./ml POC ABG pCO2 66.4 H (35-45) POC ABG pO2 64 L (80-105) Sodium (137-145) mmol/L Chloride (98-107) mmol/L Carbon Dioxide (22-30) mmol/L BUN (9-20) mg/dL Creatinine (0.8-1.5) mg/dL Glucose (75-100) mg/dL POC Glucose 206 H (70-105) 08/02/18 08/02/18 08/02/18 Range/Units 04:45 05:31 09:46 Hgb (11.8-15.2) gm/dl Hct (35.5-45.6) % Heparin Anti-Xa Level 0.91 H (0.3-0.7) U.I./ml POC ABG pCO2 (35-45) POC ABG pO2 (80-105) Sodium 152 H (137-145) mmol/L Chloride 108.1 H (98-107) mmol/L Carbon Dioxide 39 H (22-30) mmol/L BUN 38 H (9-20) mg/dL Creatinine 0.6 L (0.8-1.5) mg/dL Glucose 226 H (75-100) mg/dL POC Glucose 214 H (70-105) 12/18/18 Range/Units 14:23 Hgb (11.8-15.2) gm/dl Hct (35.5-45.6) % Heparin Anti-Xa Level (0.3-0.7) U.I./ml POC ABG pCO2 (35-45) POC ABG pO2 (80-105) Sodium (137-145) mmol/L Chloride (98-107) mmol/L Carbon Dioxide (22-30) mmol/L BUN (9-20) mg/dL Creatinine (0.8-1.5) mg/dL Glucose (75-100) mg/dL POC Glucose 210 H (70-105)
[2018-08-02] MEDS: HEPARIN/ 0.45% NACL-25,000 UNIT/500 ML 25,000 UNIT/500 ML BAG IV SCH (15:32)
[2018-08-02] MEDS: PRAVACHOL PO SCH (15:33)
[2018-08-02] MEDS: SODIUM CHLORIDE FLUSH SYRINGE 10 ML IV SCH ×2 (15:33→22:29)
--- NOTE | 2018-08-02 16:33 | Progress Note ---
Assessment and Plan Assessment and plan: Sepsis; - Blood cultures reveal Streptococcus anginosus. - ID consulted and change antibiotics to cefepime Left lower lobe pneumonia; - Continue antibiotics. - Sputum culture revealed Pseudomonas and staph Acute hypoxemic respiratory failure - Continue on mechanical ventilation and weaning per pulmonary - CXR showed vascular congestion Atrial fibrillation - Continue amiodarone and diltiazem. - Cardiology following. - Check echocardiogram. Acute renal failure - Etiology likely secondary to sepsis/ATN. - Renal ultrasound unremarkable. COPD exacerbation. - Continue bronchodilators/nebulizers. - IV steroids. Hypertension. - Resume antihypertensive medications as needed. Hyperlipidemia. - Peripheral vascular disease. The high probability of a clinically significant, sudden or life threatening deterioration of the [respiratory] system(s) required my full and direct attenti on, intervention and personal management. The aggregate critical care time was [32] minutes. This time is in addition to time spent performing reported procedures but includes the following: [x] Data Review and interpretation [x] Patient assessment and monitoring of vital signs [x] Documentation [x] Medication orders and management History Interval history: 73 YO Male with H/O COPD, PVD, HTN, HLD, Seizure Disorder, Skin Cancer presents to ED for evaluation. Pt states that he has experienced shortness and chest palpitations over the past 2 days with worsening symptoms over the past 1 day. Pt acknowledges decreased exercise tolerance, as well as dyspnea on exertion. 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 Pt denies fever, chills, leg swelling, calf pain, CP with deep breathing, hemoptysis, Prolonged air/car travel, or immobility, Back Pain, Syncope, Lightheadedness, recent ill contacts, unintentional weight loss, night sweats, or bone pain. Pt seen and evaluated in ED and found to have Atrial Fib with RVR refractory to cardizem drip, but improved with Amiodarone Drip, Acute Hypoxemic Respiratory Failure, SIRS. Pt admitted to ICU. The patient later after admission had further decompensation with respiratory distress. Patient reportedly was satting 60-70% on a nonrebreather and had to be emergently intubated. The patient remains intubated on mechanical ventilation History Interval history: Patient was seen and divided this morning, patient was not able to communicate. Intubated and on mechanical ventilation. Hospitalist Physical - Physical exam Narrative exam: Patient is intubated and on mechanical ventilation. The patient is obese. Vital signs as documented. Head exam is unremarkable. No scleral icterus . Neck is without jugular venous distension, thyromegaly, or carotid bruits. Lungs are clear to auscultation. Cardiac exam reveals regular rate and Rhythm. Abdominal exam reveals normal bowel sounds. Extremities are nonedematous and both femoral and pedal pulses are normal. 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 - Constitutional Vitals: Temp Pulse Resp BP Pulse Ox 97.9 F 65 12 140/65 98 08/01/18 03:57 08/02/18 15:48 08/02/18 11:00 08/02/18 15:48 08/02/18 15:48 General appearance: Present: no acute distress, other (intubated on mechanical ventilation) Results - Labs CBC & Chem 7: 08/02/18 04:45 08/02/18 04:45 Labs: Laboratory Last Values WBC 9.0 K/mm3 (4.5-11.0) 07/29/18 04:21 RBC 3.21 M/mm3 (3.65-5.03) L 07/29/18 04:21 Hgb 10.7 gm/dl (11.8-15.2) L 08/02/18 04:45 Hct 33.7 % (35.5-45.6) L 08/02/18 04:45 MCV 103 fl (84-94) H 07/29/18 04:21 MCH 34 pg (28-32) H 07/29/18 04:21 MCHC 33 % (32-34) 07/29/18 04:21 RDW 16.4 % (13.2-15.2) H 07/29/18 04:21 Plt Count 261 K/mm3 (140-440) 08/02/18 04:45 Add Manual Diff Complete 07/29/18 04:21 Total Counted 100 07/29/18 04:21 Seg Neutrophils % Director Emergency Services 07/29/18 04:21 Seg Neuts % (Manual) 59.0 % (40.0-70.0) 07/29/18 04:21 Band Neutrophils % 22.0 % 07/29/18 04:21 Lymphocytes % (Manual) 11.0 % (13.4-35.0) L 07/29/18 04:21 Reactive Lymphs % (Man) 0 % 07/29/18 04:21 Monocytes % (Manual) 6.0 % (0.0-7.3) 07/29/18 04:21 Eosinophils % (Manual) 0 % (0.0-4.3) 07/29/18 04:21 Basophils % (Manual) 0 % (0.0-1.8) 07/29/18 04:21 Metamyelocytes % 0 % 07/29/18 04:21 Myelocytes % 2.0 % 07/29/18 04:21 Promyelocytes % 0 % 07/29/18 04:21 Blast Cells % 0 % 07/29/18 04:21 Nucleated RBC % Not Reportable 07/29/18 04:21 Seg Neutrophils # Man 5.3 K/mm3 (1.8-7.7) 07/29/18 04:21 Band Neutrophils # 2.0 K/mm3 07/29/18 04:21 Lymphocytes # (Manual) 1.0 K/mm3 (1.2-5.4) L 07/29/18 04:21 Abs React Lymphs (Man) 0.0 K/mm3 07/29/18 04:21 Monocytes # (Manual) 0.5 K/mm3 (0.0-0.8) 07/29/18 04:21 Eosinophils # (Manual) 0.0 K/mm3 (0.0-0.4) 07/29/18 04:21 Basophils # (Manual) 0.0 K/mm3 (0.0-0.1) 07/29/18 04:21 Metamyelocytes # 0.0 K/mm3 07/29/18 04:21 Myelocytes # 0.2 K/mm3 07/29/18 04:21 Promyelocytes # 0.0 K/mm3 07/29/18 04:21 Blast Cells # 0.0 K/mm3 07/29/18 04:21 Pathologist Review 07/28/18 06:01 WBC Morphology Not Reportable 07/29/18 04:21 Hypersegmented Neuts Not Reportable 07/29/18 04:21 Hyposegmented Neuts Not Reportable 07/29/18 04:21 Hypogranular Neuts Not Reportable 07/29/18 04:21 Smudge Cells Not Reportable 07/29/18 04:21 Toxic Granulation Not Reportable 07/29/18 04:21 Toxic Vacuolation Not Reportable 07/29/18 04:21 Dohle Bodies 1+ 07/29/18 04:21 Pelger-Huet Anomaly Not Reportable 07/29/18 04:21 Janiya Rods Not Reportable 07/29/18 04:21 Platelet Estimate Appears normal 07/29/18 04:21 Clumped Platelets Not Reportable 07/29/18 04:21 Plt Clumps, EDTA Not Reportable 07/29/18 04:21 Large Platelets Not Reportable 07/29/18 04:21 Giant Platelets Not Reportable 07/29/18 04:21 Platelet Satelliting Not Reportable 07/29/18 04:21 Plt Morphology Comment Not Reportable 07/29/18 04:21 RBC Morphology Not Reportable 07/29/18 04:21 Dimorphic RBCs Not Reportable 07/29/18 04:21 Polychromasia Not Reportable 07/29/18 04:21 Hypochromasia Few 07/29/18 04:21 Poikilocytosis Not Reportable 07/29/18 04:21 Anisocytosis 1+ 07/29/18 04:21 Microcytosis Not Reportable 07/29/18 04:21 Macrocytosis Not Reportable 07/29/18 04:21 Spherocytes Not Reportable 07/29/18 04:21 Pappenheimer Bodies Not Reportable 07/29/18 04:21 Sickle Cells Not Reportable 07/29/18 04:21 Target Cells Not Reportable 07/29/18 04:21 Tear Drop Cells Not Reportable 07/29/18 04:21 Ovalocytes Not Reportable 07/29/18 04:21 Helmet Cells Not Reportable 07/29/18 04:21 Lr-[place] Bodies Not Reportable 07/29/18 04:21 [place] Rings Not Reportable 07/29/18 04:21 Armando Cells Not Reportable 07/29/18 04:21 Bite Cells Not Reportable 07/29/18 04:21 Crenated Cell Not Reportable 07/29/18 04:21 Elliptocytes Not Reportable 07/29/18 04:21 Acanthocytes (Spur) Not Reportable 07/29/18 04:21 Rouleaux Not Reportable 07/29/18 04:21 Hemoglobin C Crystals Not Reportable 07/29/18 04:21 Schistocytes Not Reportable 07/29/18 04:21 Malaria parasites Not Reportable 07/29/18 04:21 Jigar Bodies Not Reportable 07/29/18 04:21 Hem Pathologist Commnt No 07/29/18 04:21 PT 16.0 Sec. (12.2-14.9) H 07/27/18 17:09 INR 1.24 (0.87-1.13) H 07/27/18 17:09 APTT 31.9 Sec. (24.2-36.6) 07/27/18 17:09 D-Dimer 798.17 ng/mlDDU (0-234) H 07/27/18 15:52 Heparin Anti-Xa Level 0.99 U.I./ml (0.3-0.7) H 08/02/18 15:46 POC ABG pH 7.378 (7.35-7.45) 08/02/18 00:44 POC ABG pCO2 66.4 (35-45) H 08/02/18 00:44 POC ABG pO2 64 (80-105) L 08/02/18 00:44 POC ABG HCO3 39.1 08/02/18 00:44 POC ABG Total CO2 41 08/02/18 00:44 POC ABG O2 Sat 91 08/02/18 00:44 POC ABG Base Excess 14 08/02/18 00:44 FiO2 40 % 08/02/18 00:44 Sodium 152 mmol/L (137-145) H 08/02/18 04:45 Potassium 4.8 mmol/L (3.6-5.0) 08/02/18 04:45 Chloride 108.1 mmol/L (98-107) H 08/02/18 04:45 Carbon Dioxide 39 mmol/L (22-30) H 08/02/18 04:45 Anion Gap 10 mmol/L 08/02/18 04:45 BUN 38 mg/dL (9-20) H 08/02/18 04:45 Creatinine 0.6 mg/dL (0.8-1.5) L 08/02/18 04:45 Estimated GFR > 60 ml/min 08/02/18 04:45 BUN/Creatinine Ratio 63 % 08/02/18 04:45 Glucose 226 mg/dL (75-100) H 08/02/18 04:45 POC Glucose 210 (70-105) H 08/02/18 14:23 Lactic Acid 3.90 mmol/L (0.7-2.0) H* 07/28/18 09:20 Calcium 9.8 mg/dL (8.4-10.2) 08/02/18 04:45 Phosphorus 3.60 mg/dL (2.5-4.5) 08/02/18 04:45 Magnesium 2.20 mg/dL (1.7-2.3) 07/31/18 03:14 Total Bilirubin 1.30 mg/dL (0.1-1.2) H 07/27/18 12:59 AST 15 units/L (5-40) 07/27/18 12:59 ALT 16 units/L (7-56) 07/27/18 12:59 Alkaline Phosphatase 62 units/L (35-129) 07/27/18 12:59 Troponin T < 0.010 ng/mL (0.00-0.029) 07/27/18 12:59 NT-Pro-B Natriuret Pep 3913 pg/mL (0-900) H 07/27/18 12:59 Total Protein 6.2 g/dL (6.3-8.2) L 07/27/18 12:59 Albumin 3.6 g/dL (3.9-5) L 07/27/18 12:59 Albumin/Globulin Ratio 1.4 % 07/27/18 12:59 Triglycerides 142 mg/dL (2-149) 08/01/18 04:13 TSH 1.180 mlU/mL (0.270-4.200) 07/27/18 15:52 Free T4 1.28 ng/dL (0.76-1.46) 07/27/18 15:52 Urine Color Yellow (Yellow) 07/29/18 09:24 Urine Turbidity Cloudy (Clear) 07/29/18 09:24 Urine pH 5.0 (5.0-7.0) 07/29/18 09:24 Ur Specific [place] 1.017 (1.003-1.030) 07/29/18 09:24 Urine Protein 30 mg/dl mg/dL (Negative) 07/29/18 09:24 Urine Glucose (UA) Neg mg/dL (Negative) 07/29/18 09:24 Urine Ketones Neg mg/dL (Negative) 07/29/18 09:24 Urine Blood Mod (Negative) 07/29/18 09:24 Urine Nitrite Neg (Negative) 07/29/18 09:24 Urine Bilirubin Neg (Negative) 07/29/18 09:24 Urine Urobilinogen < 2.0 mg/dL (<2.0) 07/29/18 09:24 Ur Leukocyte Esterase Mod (Negative) 07/29/18 09:24 Urine WBC (Auto) 29.0 /HPF (0.0-6.0) H 07/29/18 09:24 Urine RBC (Auto) 7.0 /HPF (0.0-6.0) 07/29/18 09:24 U Epithel Cells (Auto) 2.0 /HPF (0-13.0) 07/29/18 09:24 Urine Bacteria (Auto) 1+ /HPF (Negative) 07/29/18 09:24 Urine Mucus Few /HPF 07/29/18 09:24 Urine Yeast (Budding) 1+ /HPF 07/29/18 09:24 Urine Creatinine 72.3 mg/dL (0.1-20.0) H 07/29/18 09:24 Urine Sodium 12 mmol/L 07/29/18 09:24 Random Vancomycin 9.2 ug/mL (0-40.0) 07/29/18 04:21 Nutrition/Malnutrition Assess - Dietary Evaluation Nutrition/Malnutrition Findings: Nutrition Notes Start: 07/28/18 10:54 Freq: Status: Active Protocol: Document 08/01/18 15:16 OL (Rec: 08/01/18 15:21 OL [id number]) Nutrition Notes Initial or Follow up Reassessment Current Diagnoses Acute Kidney Injury COPD Sepsis Hypertension Heart Failure Respiratory Failure Other Pertinent Diagnosis Hx of Skin Cancer Current Diet Nepro at 50ml/hr Labs/Tests BUN 37 Cr 0.6 Medications Propofol at 5.062mL/hr (113.64 lipid kcal) Solumedrol Height 5 ft 8 in Weight 91.4 kg [place] Body Weight (lbs) 154.0 BMI 30.6 Weight change and time frame Wt. change noted. Subjective/Other Information Nepro infusing at goal rate of 50mL/hr. Per RN, pt. tolerating TF well. Percent of energy/protein needs met: 100%/69% Burn Absent Trauma Absent #1 Nutrition Diagnoses Inadequate oral intake Diagnosis Progress(for reassessment Continues documentation) Is patient on ventilator? Yes Is Patient Ambulatory and/or Out of Bed No REE-([facility]-confined to bed) 1953.308 Kcal/Kg value to use for calculation 14 Approximate Energy Requirements Using 1280 kcal/Kg Calculation Used for Recommendations [facility] Additional Notes protein (2g/kg IBW): 140g daily fluid: 1mL/kcal or per MD Nutrition Intervention Change Diet Order: Continue TF Nutrition Support: Nepro at 50mL/hr 200mL free water flush q4h or per MD. Kcal 2,160 Protein (gm) 97 Fluid (mL) 872 Goal #1 TF tolerance and rate Goal #2 Meet at least 80% of kcal needs and 80-100% of protein needs. Follow-Up By: 08/04/18 Additional Comments f/u: stable TF
[2018-08-02] MEDS: fentaNYL DRIP Premix 2,000 MCG/100 ML BAG IV SCH (20:08)
[2018-08-02] MEDS ORDERED: LANTUS SUB-Q SCH (22:00)
[2018-08-03] MEDS: CARDIZEM PO SCH ×3 (00:31→12:51)
[2018-08-03] MEDS: DIPRIVAN 10 MG/ML 1,000 MG/100 ML BOTTLE IV SCH ×2 (00:32→19:21)
--- NOTE | 2018-08-03 02:28 | XRay Report ---
FINAL REPORT EXAM: XR CHEST 1V AP HISTORY: follow up respiratory failure TECHNIQUE: A portable upright view the chest was obtained and compared to the study of 08/02/2018. FINDINGS: The heart is mildly enlarged. There is stable pulmonary congestion with bilateral small effusions. Th e endotracheal tube and NG tube appear in good position. There is stable right-sided apical pleural t hickening. There are EKG leads overlying the chest wall. The bones and soft tissues otherwise are unc hanged. IMPRESSION: Stable pulmonary vascular congestion and bilateral pleural effusions. Satisfactory position of the ET tube and NG tube.
[2018-08-03] MEDS: HumaLOG SUB-Q SCH ×8 (02:33→22:14)
[2018-08-03] MEDS: HEPARIN/ 0.45% NACL-25,000 UNIT/500 ML 25,000 UNIT/500 ML BAG IV SCH ×2 (06:29→19:21)
[2018-08-03] MEDS: SOLU-Medrol IV SCH ×2 (06:41→22:05)
[2018-08-03] MEDS: BROVANA NEBU IH SCH ×2 (07:18→20:14)
[2018-08-03] MEDS: PULMICORT IH SCH ×2 (07:18→20:15)
[2018-08-03 07:25] LABS: BUN/Creatinine Ratio 70; Blood Urea Nitrogen 42 mg/dL (9-20); Calcium 9.8 mg/dL (8.4-10.2); Hemolysis Index 9
--- NOTE | 2018-08-03 09:29 | Progress Note ---
Assessment and Plan 1. Acute kidney injury: Likely Vasomotor / hemodynamic CARLEE in the setting of A.fib with RVR. Renal function is better. 2. FEN: Hypernatremia, continue water flushes. Appears euvolemic. On tube feeding. Monitor. 3. A.fib: Rate controlled. Amiodarone and Heparin. 4. Respiratory failure: On vent. 5. Sepsis. Subjective Date of service: 08/03/18 Principal diagnosis: AFib Interval history: Patient was seen and examined at the bedside. Objective - Vital Signs Vital signs: Vital Signs - 12hr 08/02/18 08/02/18 08/02/18 21:30 22:00 22:30 Temperature Pulse Rate 59 L 56 L 56 L Pulse Rate [ Anterior Bilateral Throughout] Pulse Rate [ Bilateral] Respiratory 12 12 12 Rate Respiratory Rate [Anterior Bilateral Throughout] Respiratory Rate [Bilateral ] Blood Pressure 103/56 99/54 96/58 O2 Sat by Pulse 98 98 98 Oximetry 08/02/18 08/02/18 08/02/18 23:00 23:22 23:30 Temperature Pulse Rate 58 L 58 L 60 Pulse Rate [ Anterior Bilateral Throughout] Pulse Rate [ Bilateral] Respiratory 12 12 Rate Respiratory Rate [Anterior Bilateral Throughout] Respiratory Rate [Bilateral ] Blood Pressure 97/54 97/54 101/56 O2 Sat by Pulse 98 94 91 Oximetry 08/03/18 08/03/18 08/03/18 00:00 00:06 00:30 Temperature 97.6 F Pulse Rate 66 68 75 Pulse Rate [ Anterior Bilateral Throughout] Pulse Rate [ Bilateral] Respiratory 17 16 19 Rate Respiratory Rate [Anterior Bilateral Throughout] Respiratory Rate [Bilateral ] Blood Pressure 118/55 101/56 113/59 O2 Sat by Pulse 93 93 91 Oximetry 08/03/18 08/03/18 08/03/18 00:31 01:00 01:30 Temperature Pulse Rate 74 69 68 Pulse Rate [ Anterior Bilateral Throughout] Pulse Rate [ Bilateral] Respiratory 17 16 Rate Respiratory Rate [Anterior Bilateral Throughout] Respiratory Rate [Bilateral ] Blood Pressure 113/59 118/56 115/57 O2 Sat by Pulse 91 88 Oximetry 08/03/18 08/03/18 08/03/18 02:00 02:30 03:00 Temperature Pulse Rate 68 67 70 Pulse Rate [ Anterior Bilateral Throughout] Pulse Rate [ Bilateral] Respiratory 19 16 18 Rate Respiratory Rate [Anterior Bilateral Throughout] Respiratory Rate [Bilateral ] Blood Pressure 114/56 116/57 111/59 O2 Sat by Pulse 91 92 91 Oximetry 08/03/18 08/03/18 08/03/18 03:30 03:54 04:00 Temperature 97.8 F Pulse Rate 68 69 Pulse Rate [ Anterior Bilateral Throughout] Pulse Rate [ Bilateral] Respiratory 18 17 Rate Respiratory Rate [Anterior Bilateral Throughout] Respiratory Rate [Bilateral ] Blood Pressure 122/58 119/61 O2 Sat by Pulse 91 92 Oximetry 08/03/18 08/03/18 08/03/18 04:30 05:00 05:30 Temperature Pulse Rate 69 66 69 Pulse Rate [ Anterior Bilateral Throughout] Pulse Rate [ Bilateral] Respiratory 19 17 17 Rate Respiratory Rate [Anterior Bilateral Throughout] Respiratory Rate [Bilateral ] Blood Pressure 119/58 128/61 117/56 O2 Sat by Pulse 92 91 90 Oximetry 08/03/18 08/03/18 08/03/18 06:00 06:29 06:30 Temperature Pulse Rate 69 70 75 Pulse Rate [ Anterior Bilateral Throughout] Pulse Rate [ Bilateral] Respiratory 17 18 Rate Respiratory Rate [Anterior Bilateral Throughout] Respiratory Rate [Bilateral ] Blood Pressure 117/58 117/58 121/59 O2 Sat by Pulse 90 91 Oximetry 08/03/18 08/03/18 08/03/18 07:00 07:20 07:21 Temperature Pulse Rate 69 69 Pulse Rate [ 74 Anterior Bilateral Throughout] Pulse Rate [ 70 Bilateral] Respiratory 18 Rate Respiratory 16 Rate [Anterior Bilateral Throughout] Respiratory 16 Rate [Bilateral ] Blood Pressure 125/57 125/57 O2 Sat by Pulse 92 92 Oximetry 08/03/18 08/03/18 08/03/18 07:30 08:00 08:30 Temperature Pulse Rate 69 70 72 Pulse Rate [ Anterior Bilateral Throughout] Pulse Rate [ Bilateral] Respiratory 12 17 18 Rate Respiratory Rate [Anterior Bilateral Throughout] Respiratory Rate [Bilateral ] Blood Pressure 114/54 126/52 121/55 O2 Sat by Pulse 96 91 90 Oximetry 08/03/18 08/03/18 09:00 09:14 Temperature 98.5 F Pulse Rate 72 Pulse Rate [ Anterior Bilateral Throughout] Pulse Rate [ Bilateral] Respiratory 19 Rate Respiratory Rate [Anterior Bilateral Throughout] Respiratory Rate [Bilateral ] Blood Pressure 127/56 O2 Sat by Pulse 90 Oximetry - General Appearance General appearance: well-developed, appears stated age, sedated on ventilator, intubated EENT: ATNC Neck: supple Respiratory: Present: Clear to Ascultation Cardiology: regular, S1S2, no murmurs Gastrointestinal: normoactive bowel sounds, no tenderness, no distended Integumentary: no rash, warm and dry Neurologic: other (sedated / not responding) Musculoskeletal: other (no edema) - Lab 08/02/18 04:45 08/03/18 05:25 Most recent lab results Calcium 9.8 mg/dL (8.4-10.2) 08/03/18 05:25 Phosphorus 3.60 mg/dL (2.5-4.5) 08/02/18 04:45 Magnesium 2.20 mg/dL (1.7-2.3) 07/31/18 03:14 Urine Creatinine 72.3 mg/dL (0.1-20.0) H 07/29/18 09:24 Urine Sodium 12 mmol/L 07/29/18 09:24 Medications & Allergies - Medications Allergies/Adverse Reactions: Allergies No Known Allergies Allergy (Verified 12/12/13 06:46) Home Medications: Home Medications Medication Instructions Recorded Confirmed Last Taken Type Pravastatin Sodium 40 mg PO DAILY 12/12/13 07/27/18 07/27/18 History Clopidogrel [Plavix] 75 mg PO DAILY #30 tablet 04/03/15 07/27/18 07/27/18 Rx amLODIPine [Norvasc] 10 mg PO DAILY #30 tablet 04/03/15 07/27/18 07/27/18 Rx Fluticasone/Salmeterol [Advair 1 puff IH BID 12/31/15 07/27/18 07/27/18 History Diskus 250-50 mcg] ALBUTEROL Inhaler (OR & NICU) 2 puff IH QID PRN 07/27/18 07/27/18 Unknown History [Proair] Aspirin [Aspirin BABY CHEW TAB] 81 mg PO DAILY 07/27/18 07/27/18 07/27/18 History Cyanocobalamin (Vitamin B-12) 2,500 mcg PO DAILY 07/27/18 07/27/18 07/27/18 History [Vitamin B12] [place]-3S/Dha/Epa/Fish Oil/D3 [Fish 1 each PO DAILY 07/27/18 07/27/18 07/27/18 Hi story [id number] D Softgel] Active Medications: Generic Name Dose Route Start Last Admin Trade Name Freq PRN Reason Stop Dose Admin Acetaminophen 650 mg 07/28/18 04:34 07/28/18 05:29 Tylenol [place] 650 mg Q4H PRN Administration Fever >101 Amiodarone HCl 200 mg 07/29/18 14:00 08/02/18 22:27 Cordarone PO 200 mg BID IGNACIO Administration Lipase/Protease/Amylase 1 each 07/28/18 13:57 Pancreaze 10,500 Unit FEEDTUBE PRN PRN For Clogged Feeding Tube Arformoterol Tartrate 15 mcg 07/27/18 20:00 08/03/18 07:18 Brovana Nebu IH 15 mcg Q12HRT IGNACIO Administration Benzocaine 1 spray 08/02/18 11:00 Hurricaine One 20% Topical [place] MM 08/04/18 11:01 PREOP IGNACIO Budesonide 0.5 mg 07/27/18 20:00 08/03/18 07:18 Pulmicort IH 0.5 mg Q12HRT IGNACIO Administration Clopidogrel Bisulfate 75 mg 07/28/18 10:00 08/02/18 11:56 Plavix PO 75 mg DAILY [facility] Administration Cyanocobalamin 2,500 mcg 07/28/18 10:00 08/02/18 11:56 Vitamin B-12 PO 2,500 mcg QDAY IGNACIO Administration Diltiazem HCl 60 mg 07/27/18 18:00 08/03/18 06:29 Cardizem PO 60 mg Q6HR IGNACIO Administration Famotidine 20 mg 08/01/18 10:00 08/02/18 22:27 Pepcid PO 20 mg BID [facility] Administration Hydrophilic Ointment 1 applic 07/27/18 20:09 Vaseline Lip Therapy TP Q2HR PRN Dry Lips Heparin Sodium/Sodium Chloride 25,000 unit in 500 mls @ 24 mls/hr 07/27/18 17:00 08/03/18 06:29 Heparin/ 0.45% Nacl-25,000 Unit/500 Ml IV 1,800 units/hr TITR IGNACIO 36 mls/hr Administration Protocol 1,200 UNITS/HR Propofol 1,000 mg in 100 mls @ 2.531 mls/hr 07/27/18 21:00 08/03/18 07:24 Diprivan 10 Mg/Ml IV 10 mcg/kg/min TITR IGNACIO 5.062 mls/hr Titration Protocol 5 MCG/KG/MIN Cefepime HCl 2 gm in 100 mls @ 200 mls/hr 08/01/18 14:00 08/02/18 22:38 Maxipime/Ns 2 Gm/100 Ml IV 200 mls/hr Q12HR IGNACIO Administration Protocol Fentanyl Citrate 2,000 mcg in 100 mls @ 2.285 mls/hr 08/01/18 14:00 08/03/18 07:25 Fentanyl Drip Premix IV 1 mcg/kg/hr TITR IGNACIO 4.57 mls/hr Titration Protocol 0.5 MCG/KG/HR Insulin Glargine 10 units 08/02/18 22:00 08/02/18 22:32 Lantus SUB-Q 10 units QHS IGNACIO Administration Insulin Human Lispro 0 unit 07/29/18 07:00 08/03/18 06:28 Humalog SUB-Q 2 unit Q4HR IGNACIO Administration Protocol Methylprednisolone Sodium Succinate 40 mg 07/28/18 14:00 08/03/18 06:41 Solu-Medrol IV 40 mg Q8HR IGNACIO Administration Multi-Ingred Cream/Lotion/Oil/Oint 1 applic 07/27/18 20:09 Artificial Tears Ophth Oint OU Q4HR PRN Dry Eye(s) Pravastatin Sodium 40 mg 07/28/18 10:00 08/02/18 15:33 Pravachol PO 40 mg DAILY IGNACIO Administration Quetiapine Fumarate 100 mg 08/02/18 15:00 08/02/18 22:28 Seroquel PO 100 mg BID IGNACIO Administration Simple Syrup 15 ml 07/28/18 13:57 Simple Syrup FEEDTUBE PRN PRN Hypoglycemia Simple Syrup 30 ml 07/28/18 13:57 Simple Syrup FEEDTUBE PRN PRN Hypoglycemia Sodium Bicarbonate 325 mg 07/28/18 13:57 Sodium Bicarbonate FEEDTUBE PRN PRN For Clogged Feeding Tube Sodium Chloride 10 ml 07/27/18 22:00 08/02/18 22:29 Sodium Chloride Flush Syringe 10 Ml IV 10 ml BID IGNACIO Administration Sodium Chloride 10 ml 07/27/18 15:59 Sodium Chloride Flush Syringe 10 Ml IV PRN PRN LINE FLUSH
[2018-08-03] MEDS: PEPCID PO SCH ×2 (09:52→22:06)
[2018-08-03] MEDS: CORDARONE PO SCH ×2 (09:52→22:06)
[2018-08-03] MEDS: PRAVACHOL PO SCH (09:52)
[2018-08-03] MEDS: PLAVIX PO SCH (09:53)
[2018-08-03] MEDS: VITAMIN B-12 PO SCH (09:53)
[2018-08-03] MEDS: MAXIPIME/NS 2 GM/100 ML 2 GM/100 ML BAG IV SCH ×2 (09:54→22:14)
[2018-08-03] MEDS: SODIUM CHLORIDE FLUSH SYRINGE 10 ML IV SCH ×2 (09:55→22:07)
--- NOTE | 2018-08-03 10:37 | Progress Note ---
Assessment and Plan Cultures: 07/27/2018 tracheal aspirate culture: Pseudomonas aeruginosa, MSSA 07/28/2018 blood culture: 4 out of 4 bottles positive for Streptococcus anginosus 07/28/2018 fungal blood culture: In progress but no growth thus far 07/29/2018 urine culture: No growth 08/01/2018 blood culture: negative thus far A/P: 73-year-old male with COPD, peripheral vascular disease, hypertension, hyperlipidemia, seizure disorder admitted with: 1) Sepsis secondary to Streptococcus anginosus bacteremia: Present on admission. Source is unclear. Patient does have evidence of pneumonia however sputum cultures are not concordant and are growing pseudomonas aeruginosa and MSSA. Reviewed cardiology note, REGAN was reportedly negative. Continue abx, previously received Ceftriaxone and Vancomycin, now Cefepime. 2) Acute respiratory failure secondary to congestive heart failure and pneumonia: Continue IV cefepime to cover both MSSA and Pseudomonas. 3) CARLEE, present on admission, now resolved. Recs: Continue IV cefepime 2 g every 12 hours, ending 08/08/2018 Will follow along. Rhea Ro MD [facility] C: [phone] O: [phone] F: [phone] Subjective Date of service: 08/03/18 Principal diagnosis: AFib Interval history: Remains on the vent. No fever. Hemodynamically stable. Objective - Exam Narrative Exam: Physical Exam: Constitutional: sedated, intubated Head, Ears, Nose: Normocephalic, atraumatic. External ears, nose normal Eyes: Conjunctivae/corneas clear. No icterus. No ptosis. Neck: Supple, no meningeal signs Oral: intubated. Cardiovascular: S1, S2 normal. Respiratory: Good air entry, clear to auscultation bilaterally, no rhonchi or crackles GI: Soft, non-tender; bowel sounds normal. No peritoneal signs Musculoskeletal: No pedal edema, no cyanosis. Skin: No rash or abscess Hem/Lymphatic: No palpable cervical or supraclavicular nodes. No lymphangitis Psych: no agitation Neurological: sedated, intubated, exam limited - Constitutional Vitals: Vital Signs Temp Pulse Resp BP Pulse Ox 98.5 F 72 19 127/56 90 08/03/18 09:14 08/03/18 09:00 08/03/18 09:00 08/03/18 09:00 08/03/18 09:00 Temperature -Last 24 Hours Temperature 98.5 F Temperature 97.8 F Temperature 97.6 F Temperature 97.7 F Temperature 98.4 F Temperature 98.3 F - Labs CBC & Chem 7: 08/02/18 04:45 08/03/18 05:25 Labs: Abnormal lab results 08/02/18 08/02/18 08/02/18 Range/Units 14:23 15:46 17:56 Heparin Anti-Xa Level 0.99 H (0.3-0.7) U.I./ml Sodium (137-145) mmol/L Chloride (98-107) mmol/L Carbon Dioxide (22-30) mmol/L BUN (9-20) mg/dL Creatinine (0.8-1.5) mg/dL Glucose (75-100) mg/dL POC Glucose 210 H 252 H (70-105) 08/02/18 08/03/18 08/03/18 Range/Units 21:50 02:18 05:21 Heparin Anti-Xa Level (0.3-0.7) U.I./ml Sodium (137-145) mmol/L Chloride (98-107) mmol/L Carbon Dioxide (22-30) mmol/L BUN (9-20) mg/dL Creatinine (0.8-1.5) mg/dL Glucose (75-100) mg/dL POC Glucose 222 H 241 H 241 H (70-105) 08/03/18 08/03/18 Range/Units 05:25 09:11 Heparin Anti-Xa Level (0.3-0.7) U.I./ml Sodium 151 H (137-145) mmol/L Chloride 107.3 H (98-107) mmol/L Carbon Dioxide 37 H (22-30) mmol/L BUN 42 H (9-20) mg/dL Creatinine 0.6 L (0.8-1.5) mg/dL Glucose 263 H (75-100) mg/dL POC Glucose 272 H (70-105) - Imaging and cardiology Chest x-ray: report reviewed, image reviewed (pulmonary vascular congestion, ET +, NG tube +, small b/l pleural effusions.)
--- NOTE | 2018-08-03 11:31 | Progress Note ---
Assessment and Plan Acute hypoxemic respiratory failure, on mechanical ventilatory support. Atrial fibrillation with rapid ventricular response. Possible congestive heart failure with an acute exacerbation. 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 Elevated D-dimer. Leukocytosis. Sepsis syndrome with hypotension and fevers this morning. Chronic obstructive lung disease with an acute exacerbation. Hypernatremia Peripheral vascular disease. Mixed acidosis, respiratory and metabolic. Acute kidney injury. Lactic acidosis. Elevated BNP level of 3913. History of hypertension. History of arthritis. (Discussed possible need for tracheostomy with caregiver in room who stated that she will talk to his sister as no or kids) - continue set rate of 12 cmH20 - ABG in am - continue daily SBT's as tolerated (did not tolerate today also) - increased free water started for hypernatremia (300 mls q4h X 72 hours) - continue seroquel re: agitation/delirium (increased to 200 mg bid) - increased Lantus insulin dose - reduced solumedrol frequency to 40 mg bid - VAP bundle addressed - titrate sedatives for RASS 0 to -1 (on propofol) - PT/OT evaluation ongoing (unable to treat today also) - continue enteral nutrition as tolerated - continue supplemental oxygen to keep sats >/= 90% - aspiration precautions - continue bronchodilators with pulmonary hygiene per RT - continue therapeutic anticoagulation - continue stress ulcer prophylaxis - continue Antibiotics to complete course - continue mobility protocol for pressure ulcer prevention - continue pother care per attending / other consultants .... re-evaluate in am & prn FULL CODE STATUS CONDITION: CRITICAL The high probability of a clinically significant, sudden or life-threatening deterioration of the [respiratory, cardiovascular, renal] system(s) required my full and direct attention, intervention and personal management. The aggregate critical care time was [40] minutes without overlap. Time includes spent on; [x] Data Review and interpretation [x] Patient assessment and monitoring of vital signs [x] Documentation [x] Medication orders and management Subjective Date of service: 08/03/18 Principal diagnosis: Acute hypoxemic respiratory failure; A-fib with RVR; Possible CHF; H/O DVT Interval history: Patient is seen today for: Acute hypoxemic respiratory failure on MVS; Atrial fibrillation with RVR; Possible congestive heart failure with an acute exacerbation; History of deep venous thrombosis; Elevated D-dimer. Seen and examined at bedside; 24hour events reviewed; nursing and respiratory care staff consulted; no adverse overnight events reported to me; remains on MVS; remains on MVS; still with some delirium; just about to begin daily sedation vacation; sugars running high Objective Vital Signs - 12hr 08/03/18 08/03/18 08/03/18 00:00 00:06 00:30 Temperature 97.6 F Pulse Rate 66 68 75 Pulse Rate [ Anterior Bilateral Throughout] Pulse Rate [ Bilateral] Respiratory 17 16 19 Rate Respiratory Rate [Anterior Bilateral Throughout] Respiratory Rate [Bilateral ] Blood Pressure 118/55 101/56 113/59 O2 Sat by Pulse 93 93 91 Oximetry 08/03/18 08/03/18 08/03/18 00:31 01:00 01:30 Temperature Pulse Rate 74 69 68 Pulse Rate [ Anterior Bilateral Throughout] Pulse Rate [ Bilateral] Respiratory 17 16 Rate Respiratory Rate [Anterior Bilateral Throughout] Respiratory Rate [Bilateral ] Blood Pressure 113/59 118/56 115/57 O2 Sat by Pulse 91 88 Oximetry 08/03/18 08/03/18 08/03/18 02:00 02:30 03:00 Temperature Pulse Rate 68 67 70 Pulse Rate [ Anterior Bilateral Throughout] Pulse Rate [ Bilateral] Respiratory 19 16 18 Rate Respiratory Rate [Anterior Bilateral Throughout] Respiratory Rate [Bilateral ] Blood Pressure 114/56 116/57 111/59 O2 Sat by Pulse 91 92 91 Oximetry 08/03/18 08/03/18 08/03/18 03:30 03:54 04:00 Temperature 97.8 F Pulse Rate 68 69 Pulse Rate [ Anterior Bilateral Throughout] Pulse Rate [ Bilateral] Respiratory 18 17 Rate Respiratory Rate [Anterior Bilateral Throughout] Respiratory Rate [Bilateral ] Blood Pressure 122/58 119/61 O2 Sat by Pulse 91 92 Oximetry 08/03/18 08/03/18 08/03/18 04:30 05:00 05:30 Temperature Pulse Rate 69 66 69 Pulse Rate [ Anterior Bilateral Throughout] Pulse Rate [ Bilateral] Respiratory 19 17 17 Rate Respiratory Rate [Anterior Bilateral Throughout] Respiratory Rate [Bilateral ] Blood Pressure 119/58 128/61 117/56 O2 Sat by Pulse 92 91 90 Oximetry 08/03/18 08/03/18 08/03/18 06:00 06:29 06:30 Temperature Pulse Rate 69 70 75 Pulse Rate [ Anterior Bilateral Throughout] Pulse Rate [ Bilateral] Respiratory 17 18 Rate Respiratory Rate [Anterior Bilateral Throughout] Respiratory Rate [Bilateral ] Blood Pressure 117/58 117/58 121/59 O2 Sat by Pulse 90 91 Oximetry 08/03/18 08/03/18 08/03/18 07:00 07:20 07:21 Temperature Pulse Rate 69 69 Pulse Rate [ 74 Anterior Bilateral Throughout] Pulse Rate [ 70 Bilateral] Respiratory 18 Rate Respiratory 16 Rate [Anterior Bilateral Throughout] Respiratory 16 Rate [Bilateral ] Blood Pressure 125/57 125/57 O2 Sat by Pulse 92 92 Oximetry 08/03/18 08/03/18 08/03/18 07:30 08:00 08:30 Temperature Pulse Rate 69 70 72 Pulse Rate [ Anterior Bilateral Throughout] Pulse Rate [ Bilateral] Respiratory 12 17 18 Rate Respiratory Rate [Anterior Bilateral Throughout] Respiratory Rate [Bilateral ] Blood Pressure 114/54 126/52 121/55 O2 Sat by Pulse 96 91 90 Oximetry 08/03/18 08/03/18 09:00 09:14 Temperature 98.5 F Pulse Rate 72 Pulse Rate [ Anterior Bilateral Throughout] Pulse Rate [ Bilateral] Respiratory 19 Rate Respiratory Rate [Anterior Bilateral Throughout] Respiratory Rate [Bilateral ] Blood Pressure 127/56 O2 Sat by Pulse 90 Oximetry Constitutional: appears uncomfortable, other (elderly looking CM, normocephalic and atraumatic with mildly increased respiratory effort) Eyes: non-icteric ENT: oropharynx moist, other (ETT 23 cm SUHAS) Neck: supple, no lymphadenopathy, no JVD, other (No thyromegaly) Effort: mildly labored Ascultation: Bilateral: diminished breath sounds, rhonchi Percussion: Bilateral: not dull Cardiovascular: irregular rhythm, other (+ systolic murmur) Gastrointestinal: hypoactive bowel sounds, soft, non-tender, non-distended, other (No palpable HSM) Integumentary: rash, other (poor [place]) Extremities: no cyanosis, pink and warm, pulses normal, no ischemia or petechiae Neurologic: normal mental status, non-focal exam (grossly), pupils equal and round, CN II-XII normal, motor strength normal and Psychiatric: mood appropriate, affect normal CBC and BMP: 08/02/18 04:45 08/03/18 05:25 ABG, PT/INR, D-dimer: ABG POC ABG pH 7.378 (7.35-7.45) 08/02/18 00:44 POC ABG pCO2 66.4 (35-45) H 08/02/18 00:44 POC ABG pO2 64 (80-105) L 08/02/18 00:44 POC ABG HCO3 39.1 08/02/18 00:44 POC ABG Total CO2 41 08/02/18 00:44 POC ABG O2 Sat 91 08/02/18 00:44 PT/INR, D-dimer PT 16.0 Sec. (12.2-14.9) H 07/27/18 17:09 INR 1.24 (0.87-1.13) H 07/27/18 17:09 D-Dimer 798.17 ng/mlDDU (0-234) H 07/27/18 15:52 Abnormal lab findings: Abnormal Labs 07/27/18 07/27/18 07/27/18 12:59 12:59 12:59 WBC 15.8 H RBC Hgb Hct MCV 104 H MCH 34 H RDW 16.3 H Seg Neuts % (Manual) 88.0 H Lymphocytes % (Manual) 3.0 L Seg Neutrophils # Man 13.9 H Lymphocytes # (Manual) 0.5 L PT 17.0 H INR 1.34 H D-Dimer Heparin Anti-Xa Level POC ABG pH POC ABG pCO2 POC ABG pO2 Sodium Potassium Chloride Carbon Dioxide 21 L BUN 38 H Creatinine 1.6 H Glucose POC Glucose Lactic Acid Calcium Phosphorus Total Bilirubin 1.30 H NT-Pro-B Natriuret Pep 3913 H Total Protein 6.2 L Albumin 3.6 L Urine WBC (Auto) Urine Creatinine 07/27/18 07/27/18 07/27/18 15:52 16:12 17:09 WBC RBC Hgb Hct MCV MCH RDW Seg Neuts % (Manual) Lymphocytes % (Manual) Seg Neutrophils # Man Lymphocytes # (Manual) PT 16.0 H INR 1.24 H D-Dimer 798.17 H Heparin Anti-Xa Level POC ABG pH POC ABG pCO2 POC ABG pO2 Sodium Potassium Chloride Carbon Dioxide BUN Creatinine Glucose POC Glucose Lactic Acid 5.00 H* Calcium Phosphorus Total Bilirubin NT-Pro-B Natriuret Pep Total Protein Albumin Urine WBC (Auto) Urine Creatinine 07/27/18 07/27/18 07/27/18 17:59 18:07 21:31 WBC RBC Hgb Hct MCV MCH RDW Seg Neuts % (Manual) Lymphocytes % (Manual) Seg Neutrophils # Man Lymphocytes # (Manual) PT INR D-Dimer Heparin Anti-Xa Level POC ABG pH 7.344 L POC ABG pCO2 POC ABG pO2 36 L Sodium Potassium Chloride Carbon Dioxide BUN Creatinine Glucose POC Glucose Lactic Acid 5.20 H* 5.00 H* Calcium Phosphorus Total Bilirubin NT-Pro-B Natriuret Pep Total Protein Albumin Urine WBC (Auto) Urine Creatinine 07/27/18 07/27/18 07/27/18 21:57 22:42 23:26 WBC RBC Hgb Hct MCV MCH RDW Seg Neuts % (Manual) Lymphocytes % (Manual) Seg Neutrophils # Man Lymphocytes # (Manual) PT INR D-Dimer Heparin Anti-Xa Level POC ABG pH 7.199 L POC ABG pCO2 62.0 H POC ABG pO2 Sodium Potassium Chloride Carbon Dioxide BUN Creatinine Glucose POC Glucose Lactic Acid 4.70 H* 5.00 H* Calcium Phosphorus Total Bilirubin NT-Pro-B Natriuret Pep Total Protein Albumin Urine WBC (Auto) Urine Creatinine 07/28/18 07/28/18 07/28/18 00:45 05:40 05:58 WBC RBC Hgb Hct MCV MCH RDW Seg Neuts % (Manual) Lymphocytes % (Manual) Seg Neutrophils # Man Lymphocytes # (Manual) PT INR D-Dimer Heparin Anti-Xa Level 0.11 L POC ABG pH 7.186 L POC ABG pCO2 60.1 H POC ABG pO2 68 L Sodium Potassium Chloride Carbon Dioxide BUN Creatinine Glucose POC Glucose Lactic Acid 4.70 H* Calcium Phosphorus Total Bilirubin NT-Pro-B Natriuret Pep Total Protein Albumin Urine WBC (Auto) Urine Creatinine 07/28/18 07/28/18 07/28/18 06:01 06:01 07:19 WBC 12.5 H RBC 3.51 L Hgb 11.5 L Hct MCV 104 H MCH 33 H RDW 16.6 H Seg Neuts % (Manual) Lymphocytes % (Manual) Seg Neutrophils # Man Lymphocytes # (Manual) PT INR D-Dimer Heparin Anti-Xa Level 0.14 L POC ABG pH POC ABG pCO2 POC ABG pO2 Sodium 135 L Potassium 5.1 H Chloride 95.0 L Carbon Dioxide 21 L BUN 54 H Creatinine 2.6 H D Glucose POC Glucose Lactic Acid Calcium Phosphorus Total Bilirubin NT-Pro-B Natriuret Pep Total Protein Albumin Urine WBC (Auto) Urine Creatinine 12/13/18 12/13/18 12/13/18 07:19 09:20 11:06 WBC RBC Hgb Hct MCV MCH RDW Seg Neuts % (Manual) Lymphocytes % (Manual) Seg Neutrophils # Man Lymphocytes # (Manual) PT INR D-Dimer Heparin Anti-Xa Level POC ABG pH 7.266 L POC ABG pCO2 49.7 H POC ABG pO2 74 L Sodium Potassium Chloride Carbon Dioxide BUN Creatinine Glucose POC Glucose Lactic Acid 4.00 H* 3.90 H* Calcium Phosphorus Total Bilirubin NT-Pro-B Natriuret Pep Total Protein Albumin Urine WBC (Auto) Urine Creatinine 07/28/18 07/28/18 07/28/18 15:06 20:45 23:36 WBC RBC Hgb Hct MCV MCH RDW Seg Neuts % (Manual) Lymphocytes % (Manual) Seg Neutrophils # Man Lymphocytes # (Manual) PT INR D-Dimer Heparin Anti-Xa Level 0.15 L POC ABG pH POC ABG pCO2 POC ABG pO2 Sodium 134 L Potassium 5.2 H Chloride Carbon Dioxide BUN 58 H Creatinine 2.1 H Glucose 110 H POC Glucose 125 H Lactic Acid Calcium Phosphorus Total Bilirubin NT-Pro-B Natriuret Pep Total Protein Albumin Urine WBC (Auto) Urine Creatinine 07/29/18 07/29/18 07/29/18 01:12 04:21 04:21 WBC RBC 3.21 L Hgb 10.8 L Hct 33.0 L MCV 103 H MCH 34 H RDW 16.4 H Seg Neuts % (Manual) Lymphocytes % (Manual) 11.0 L Seg Neutrophils # Man Lymphocytes # (Manual) 1.0 L PT INR D-Dimer Heparin Anti-Xa Level 0.21 L POC ABG pH POC ABG pCO2 POC ABG pO2 Sodium Potassium Chloride Carbon Dioxide BUN 48 H Creatinine 1.6 H Glucose 166 H POC Glucose Lactic Acid Calcium Phosphorus Total Bilirubin NT-Pro-B Natriuret Pep Total Protein Albumin Urine WBC (Auto) Urine Creatinine 07/29/18 07/29/18 07/29/18 05:19 08:16 09:24 WBC RBC Hgb Hct MCV MCH RDW Seg Neuts % (Manual) Lymphocytes % (Manual) Seg Neutrophils # Man Lymphocytes # (Manual) PT INR D-Dimer Heparin Anti-Xa Level 0.25 L POC ABG pH POC ABG pCO2 POC ABG pO2 Sodium Potassium Chloride Carbon Dioxide BUN Creatinine Glucose POC Glucose 181 H Lactic Acid Calcium Phosphorus Total Bilirubin NT-Pro-B Natriuret Pep Total Protein Albumin Urine WBC (Auto) 29.0 H Urine Creatinine 07/29/18 07/29/18 07/29/18 09:24 10:00 15:03 WBC RBC Hgb Hct MCV MCH RDW Seg Neuts % (Manual) Lymphocytes % (Manual) Seg Neutrophils # Man Lymphocytes # (Manual) PT INR D-Dimer Heparin Anti-Xa Level POC ABG pH POC ABG pCO2 POC ABG pO2 Sodium Potassium Chloride Carbon Dioxide BUN Creatinine Glucose POC Glucose 195 H 167 H Lactic Acid Calcium Phosphorus Total Bilirubin NT-Pro-B Natriuret Pep Total Protein Albumin Urine WBC (Auto) Urine Creatinine 72.3 H 07/29/18 07/29/18 07/30/18 17:51 21:32 01:38 WBC RBC Hgb Hct MCV MCH RDW Seg Neuts % (Manual) Lymphocytes % (Manual) Seg Neutrophils # Man Lymphocytes # (Manual) PT INR D-Dimer Heparin Anti-Xa Level POC ABG pH POC ABG pCO2 POC ABG pO2 Sodium Potassium Chloride Carbon Dioxide BUN Creatinine Glucose POC Glucose 167 H 217 H 194 H Lactic Acid Calcium Phosphorus Total Bilirubin NT-Pro-B Natriuret Pep Total Protein Albumin Urine WBC (Auto) Urine Creatinine 07/30/18 07/30/18 07/30/18 03:21 05:13 10:18 WBC RBC Hgb Hct MCV MCH RDW Seg Neuts % (Manual) Lymphocytes % (Manual) Seg Neutrophils # Man Lymphocytes # (Manual) PT INR D-Dimer Heparin Anti-Xa Level POC ABG pH POC ABG pCO2 50.3 H POC ABG pO2 78 L Sodium Potassium Chloride Carbon Dioxide BUN 41 H Creatinine Glucose 202 H POC Glucose 151 H Lactic Acid Calcium Phosphorus Total Bilirubin NT-Pro-B Natriuret Pep Total Protein Albumin Urine WBC (Auto) Urine Creatinine 07/30/18 07/30/18 07/30/18 11:29 16:28 18:12 WBC RBC Hgb Hct MCV MCH RDW Seg Neuts % (Manual) Lymphocytes % (Manual) Seg Neutrophils # Man Lymphocytes # (Manual) PT INR D-Dimer Heparin Anti-Xa Level POC ABG pH 7.326 L POC ABG pCO2 53.2 H POC ABG pO2 70 L Sodium Potassium Chloride Carbon Dioxide BUN Creatinine Glucose POC Glucose 247 H 212 H Lactic Acid Calcium Phosphorus Total Bilirubin NT-Pro-B Natriuret Pep Total Protein Albumin Urine WBC (Auto) Urine Creatinine 07/30/18 07/30/18 07/31/18 20:08 21:52 01:59 WBC RBC Hgb Hct MCV MCH RDW Seg Neuts % (Manual) Lymphocytes % (Manual) Seg Neutrophils # Man Lymphocytes # (Manual) PT INR D-Dimer Heparin Anti-Xa Level POC ABG pH POC ABG pCO2 POC ABG pO2 Sodium Potassium Chloride Carbon Dioxide BUN Creatinine Glucose POC Glucose 205 H 215 H 242 H Lactic Acid Calcium Phosphorus Total Bilirubin NT-Pro-B Natriuret Pep Total Protein Albumin Urine WBC (Auto) Urine Creatinine 07/31/18 07/31/18 07/31/18 03:14 03:14 04:55 WBC RBC Hgb 10.6 L Hct 33.2 L MCV MCH RDW Seg Neuts % (Manual) Lymphocytes % (Manual) Seg Neutrophils # Man Lymphocytes # (Manual) PT INR D-Dimer Heparin Anti-Xa Level POC ABG pH 7.331 L POC ABG pCO2 67.1 H POC ABG pO2 Sodium Potassium Chloride Carbon Dioxide BUN 36 H Creatinine 0.7 L Glucose 242 H POC Glucose Lactic Acid Calcium 10.3 H Phosphorus 2.30 L Total Bilirubin NT-Pro-B Natriuret Pep Total Protein Albumin Urine WBC (Auto) Urine Creatinine 07/31/18 07/31/18 07/31/18 05:37 10:08 14:07 WBC RBC Hgb Hct MCV MCH RDW Seg Neuts % (Manual) Lymphocytes % (Manual) Seg Neutrophils # Man Lymphocytes # (Manual) PT INR D-Dimer Heparin Anti-Xa Level POC ABG pH POC ABG pCO2 POC ABG pO2 Sodium Potassium Chloride Carbon Dioxide BUN Creatinine Glucose POC Glucose 193 H 247 H 225 H Lactic Acid Calcium Phosphorus Total Bilirubin NT-Pro-B Natriuret Pep Total Protein Albumin Urine WBC (Auto) Urine Creatinine 07/31/18 07/31/18 08/01/18 18:12 21:34 02:00 WBC RBC Hgb Hct MCV MCH RDW Seg Neuts % (Manual) Lymphocytes % (Manual) Seg Neutrophils # Man Lymphocytes # (Manual) PT INR D-Dimer Heparin Anti-Xa Level POC ABG pH POC ABG pCO2 POC ABG pO2 Sodium Potassium Chloride Carbon Dioxide BUN Creatinine Glucose POC Glucose 197 H 204 H 239 H Lactic Acid Calcium Phosphorus Total Bilirubin NT-Pro-B Natriuret Pep Total Protein Albumin Urine WBC (Auto) Urine Creatinine 08/01/18 08/01/18 08/01/18 04:13 04:37 05:29 WBC RBC Hgb Hct MCV MCH RDW Seg Neuts % (Manual) Lymphocytes % (Manual) Seg Neutrophils # Man Lymphocytes # (Manual) PT INR D-Dimer Heparin Anti-Xa Level POC ABG pH 7.296 L POC ABG pCO2 81.9 H POC ABG pO2 190 H Sodium 150 H D Potassium Chloride Carbon Dioxide 37 H D BUN 37 H Creatinine 0.6 L Glucose 223 H POC Glucose 219 H Lactic Acid Calcium Phosphorus Total Bilirubin NT-Pro-B Natriuret Pep Total Protein Albumin Urine WBC (Auto) Urine Creatinine 08/01/18 08/01/18 08/01/18 09:28 11:00 17:36 WBC RBC Hgb Hct MCV MCH RDW Seg Neuts % (Manual) Lymphocytes % (Manual) Seg Neutrophils # Man Lymphocytes # (Manual) PT INR D-Dimer Heparin Anti-Xa Level POC ABG pH POC ABG pCO2 61.2 H POC ABG pO2 69 L Sodium Potassium Chloride Carbon Dioxide BUN Creatinine Glucose POC Glucose 185 H 234 H Lactic Acid Calcium Phosphorus Total Bilirubin NT-Pro-B Natriuret Pep Total Protein Albumin Urine WBC (Auto) Urine Creatinine 08/01/18 08/02/18 08/02/18 21:54 00:08 00:44 WBC RBC Hgb Hct MCV MCH RDW Seg Neuts % (Manual) Lymphocytes % (Manual) Seg Neutrophils # Man Lymphocytes # (Manual) PT INR D-Dimer Heparin Anti-Xa Level 0.77 H POC ABG pH POC ABG pCO2 66.4 H POC ABG pO2 64 L Sodium Potassium Chloride Carbon Dioxide BUN Creatinine Glucose POC Glucose 242 H Lactic Acid Calcium Phosphorus Total Bilirubin NT-Pro-B Natriuret Pep Total Protein Albumin Urine WBC (Auto) Urine Creatinine 08/02/18 08/02/18 08/02/18 02:46 04:45 04:45 WBC RBC Hgb 10.7 L Hct 33.7 L MCV MCH RDW Seg Neuts % (Manual) Lymphocytes % (Manual) Seg Neutrophils # Man Lymphocytes # (Manual) PT INR D-Dimer Heparin Anti-Xa Level POC ABG pH POC ABG pCO2 POC ABG pO2 Sodium 152 H Potassium Chloride 108.1 H Carbon Dioxide 39 H BUN 38 H Creatinine 0.6 L Glucose 226 H POC Glucose 206 H Lactic Acid Calcium Phosphorus Total Bilirubin NT-Pro-B Natriuret Pep Total Protein Albumin Urine WBC (Auto) Urine Creatinine 08/02/18 08/02/18 08/02/18 05:31 09:46 14:23 WBC RBC Hgb Hct MCV MCH RDW Seg Neuts % (Manual) Lymphocytes % (Manual) Seg Neutrophils # Man Lymphocytes # (Manual) PT INR D-Dimer Heparin Anti-Xa Level 0.91 H POC ABG pH POC ABG pCO2 POC ABG pO2 Sodium Potassium Chloride Carbon Dioxide BUN Creatinine Glucose POC Glucose 214 H 210 H Lactic Acid Calcium Phosphorus Total Bilirubin NT-Pro-B Natriuret Pep Total Protein Albumin Urine WBC (Auto) Urine Creatinine 08/02/18 08/02/18 08/02/18 15:46 17:56 21:50 WBC RBC Hgb Hct MCV MCH RDW Seg Neuts % (Manual) Lymphocytes % (Manual) Seg Neutrophils # Man Lymphocytes # (Manual) PT INR D-Dimer Heparin Anti-Xa Level 0.99 H POC ABG pH POC ABG pCO2 POC ABG pO2 Sodium Potassium Chloride Carbon Dioxide BUN Creatinine Glucose POC Glucose 252 H 222 H Lactic Acid Calcium Phosphorus Total Bilirubin NT-Pro-B Natriuret Pep Total Protein Albumin Urine WBC (Auto) Urine Creatinine 08/03/18 08/03/18 08/03/18 02:18 05:21 05:25 WBC RBC Hgb Hct MCV MCH RDW Seg Neuts % (Manual) Lymphocytes % (Manual) Seg Neutrophils # Man Lymphocytes # (Manual) PT INR D-Dimer Heparin Anti-Xa Level POC ABG pH POC ABG pCO2 POC ABG pO2 Sodium 151 H Potassium Chloride 107.3 H Carbon Dioxide 37 H BUN 42 H Creatinine 0.6 L Glucose 263 H POC Glucose 241 H 241 H Lactic Acid Calcium Phosphorus Total Bilirubin NT-Pro-B Natriuret Pep Total Protein Albumin Urine WBC (Auto) Urine Creatinine 08/03/18 09:11 WBC RBC Hgb Hct MCV MCH RDW Seg Neuts % (Manual) Lymphocytes % (Manual) Seg Neutrophils # Man Lymphocytes # (Manual) PT INR D-Dimer Heparin Anti-Xa Level POC ABG pH POC ABG pCO2 POC ABG pO2 Sodium Potassium Chloride Carbon Dioxide BUN Creatinine Glucose POC Glucose 272 H Lactic Acid Calcium Phosphorus Total Bilirubin NT-Pro-B Natriuret Pep Total Protein Albumin Urine WBC (Auto) Urine Creatinine Chest x-ray: image reviewed (stable to slightly improved basilar infiltrates) Allied health notes reviewed: nursing
--- NOTE | 2018-08-03 11:31 | Progress Note ---
Assessment and Plan Cont present cardiac management. Cont heparin gtt and plan to convert to OAC prior to hospital discharge. Vent weaning per pulmonary. The patient has been seen in conjunction with Dr. Echols who agrees with the assessment and plan of care. - Patient Problems (1) Atrial fibrillation with RVR Current Visit: Yes Status: Acute (2) Acute respiratory failure Current Visit: Yes Status: Acute Qualifiers: Respiratory failure complication: hypoxia Qualified Code(s): J96.01 - Acute respiratory failure with hypoxia (3) COPD (chronic obstructive pulmonary disease) Current Visit: Yes Status: Chronic (4) Pneumonia Current Visit: Yes Status: Acute (5) Nonobstructive atherosclerosis of coronary artery Current Visit: Yes Status: Chronic (6) Hypertension Current Visit: Yes Status: Chronic Qualifiers: Hypertension type: essential hypertension Qualified Code(s): I10 - Essential (primary) hypertension (7) Hyperlipemia Current Visit: Yes Status: Chronic Qualifiers: Hyperlipidemia type: Mixed hyperlipidemia (8) Peripheral vascular disease Current Visit: Yes Status: Chronic (9) CARLEE (acute kidney injury) Current Visit: Yes Status: Acute (10) Lactic acid acidosis Current Visit: Yes Status: Acute Subjective Date of service: 08/03/18 Principal diagnosis: AFib Interval history: pt remains intubated, in SR with freq PACs on telemetry. heparin gtt infusing. Objective Last Vital Signs Temp 98.5 F 08/03/18 09:14 Pulse 72 08/03/18 09:00 Resp 19 08/03/18 09:00 BP 127/56 08/03/18 09:00 Pulse Ox 90 08/03/18 09:00 - Physical Examination General: Other (intubated, sedated) HEENT: Positive: Normocephaly, Mucus Membranes Moist Neck: Positive: neck supple, trachea midline Cardiac: Positive: Reg Rate and Rhythm, S1/S2 Lungs: Positive: Decreased Breath Sounds, Ventilated Respirations Neuro: Positive: Other (intubated, sedated ) Skin: Negative: Rash, Wound Musculoskeletal: No Pain Extremities: Absent: edema - Labs and Meds Comprehensive Metabolic Panel 08/03/18 Range/Units 05:25 Sodium 151 H (137-145) mmol/L Potassium 4.5 (3.6-5.0) mmol/L Chloride 107.3 H (98-107) mmol/L Carbon Dioxide 37 H (22-30) mmol/L BUN 42 H (9-20) mg/dL Creatinine 0.6 L (0.8-1.5) mg/dL Glucose 263 H (75-100) mg/dL Calcium 9.8 (8.4-10.2) mg/dL - Imaging and Cardiology EKG: report reviewed, image reviewed Echo: report reviewed ( 07/27/2018 EF 60-65%, asymmetric septal hypertrophy, mild TR. 05/2017 showed EF 55-60%, grade 1 diastolic dysfunction, mild TR, RVSP 22mmHg. 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 Treat medically. ) - Allied health notes Allied health notes reviewed: nursing
[2018-08-03] MEDS ORDERED: LANTUS SUB-Q ONE (12:00)
[2018-08-03] MEDS ORDERED: DIURIL IV ONE (13:00)
--- NOTE | 2018-08-03 16:19 | Progress Note ---
Assessment and Plan Assessment and plan: Sepsis; - Blood cultures reveal Streptococcus anginosus. - ID consulted and change antibiotics to cefepime Left lower lobe pneumonia; - Continue antibiotics. - Sputum culture revealed Pseudomonas and staph Acute hypoxemic respiratory failure - Continue on mechanical ventilation and weaning per pulmonary - CXR showed vascular congestion Atrial fibrillation - Continue amiodarone and diltiazem. - Cardiology following. - Check echocardiogram. Acute renal failure - Etiology likely secondary to sepsis/ATN. - Renal ultrasound unremarkable. COPD exacerbation. - Continue bronchodilators/nebulizers. - IV steroids. Hypertension. - Resume antihypertensive medications as needed. Hyperlipidemia. - Peripheral vascular disease. The high probability of a clinically significant, sudden or life threatening deterioration of the [respiratory] system(s) required my full and direct attenti on, intervention and personal management. The aggregate critical care time was [32] minutes. This time is in addition to time spent performing reported procedures but includes the following: [x] Data Review and interpretation [x] Patient assessment and monitoring of vital signs [x] Documentation [x] Medication orders and management History Interval history: 73 YO Male with H/O COPD, PVD, HTN, HLD, Seizure Disorder, Skin Cancer presents to ED for evaluation. Pt states that he has experienced shortness and chest palpitations over the past 2 days with worsening symptoms over the past 1 day. Pt acknowledges decreased exercise tolerance, as well as dyspnea on exertion. Pt was seen and evaluated by his support manager today and was sent to [facility] ED for further care and evaluation. Pt denies fever, chills, leg swelling, calf pain, CP with deep breathing, hemoptysis, Prolonged air/car travel, or immobility, Back Pain, Syncope, Lightheadedness, recent ill contacts, unintentional weight loss, night sweats, or bone pain. Pt seen and evaluated in ED and found to have Atrial Fib with RVR refractory to cardizem drip, but improved with Amiodarone Drip, Acute Hypoxemic Respiratory Failure, SIRS. Pt admitted to ICU. The patient later after admission had further decompensation with respiratory distress. Patient reportedly was satting 60-70% on a nonrebreather and had to be emergently intubated. The patient remains intubated on mechanical ventilation History Interval history: Patient was seen and divided this morning, patient was not able to communicate. Intubated and on mechanical ventilation. His significant other was in the room by the time of examination. Hospitalist Physical - Physical exam Narrative exam: Patient is intubated and on mechanical ventilation. The patient is obese. Vital signs as documented. Head exam is unremarkable. No scleral icterus . Neck is without jugular venous distension, thyromegaly, or carotid bruits. Lungs are clear to auscultation. Cardiac exam reveals regular rate and Rhythm. Abdominal exam reveals normal bowel sounds. Extremities are nonedematous and both femoral and pedal pulses are normal. 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 - Constitutional Vitals: Temp Pulse Resp BP Pulse Ox 99.6 F 75 20 127/56 95 08/03/18 12:00 08/03/18 16:00 08/03/18 15:30 08/03/18 16:00 08/03/18 16:00 General appearance: Present: no acute distress, other (intubated on mechanical ventilation) Results - Labs CBC & Chem 7: 08/02/18 04:45 08/03/18 05:25 Labs: Laboratory Last Values WBC 9.0 K/mm3 (4.5-11.0) 07/29/18 04:21 RBC 3.21 M/mm3 (3.65-5.03) L 07/29/18 04:21 Hgb 10.7 gm/dl (11.8-15.2) L 08/02/18 04:45 Hct 33.7 % (35.5-45.6) L 08/02/18 04:45 MCV 103 fl (84-94) H 07/29/18 04:21 MCH 34 pg (28-32) H 07/29/18 04:21 MCHC 33 % (32-34) 07/29/18 04:21 RDW 16.4 % (13.2-15.2) H 07/29/18 04:21 Plt Count 261 K/mm3 (140-440) 08/02/18 04:45 Add Manual Diff Complete 07/29/18 04:21 Total Counted 100 07/29/18 04:21 Seg Neutrophils % Scooter Mechanic 07/29/18 04:21 Seg Neuts % (Manual) 59.0 % (40.0-70.0) 07/29/18 04:21 Band Neutrophils % 22.0 % 07/29/18 04:21 Lymphocytes % (Manual) 11.0 % (13.4-35.0) L 07/29/18 04:21 Reactive Lymphs % (Man) 0 % 07/29/18 04:21 Monocytes % (Manual) 6.0 % (0.0-7.3) 07/29/18 04:21 Eosinophils % (Manual) 0 % (0.0-4.3) 07/29/18 04:21 Basophils % (Manual) 0 % (0.0-1.8) 07/29/18 04:21 Metamyelocytes % 0 % 07/29/18 04:21 Myelocytes % 2.0 % 07/29/18 04:21 Promyelocytes % 0 % 07/29/18 04:21 Blast Cells % 0 % 07/29/18 04:21 Nucleated RBC % Not Reportable 07/29/18 04:21 Seg Neutrophils # Man 5.3 K/mm3 (1.8-7.7) 07/29/18 04:21 Band Neutrophils # 2.0 K/mm3 07/29/18 04:21 Lymphocytes # (Manual) 1.0 K/mm3 (1.2-5.4) L 07/29/18 04:21 Abs React Lymphs (Man) 0.0 K/mm3 07/29/18 04:21 Monocytes # (Manual) 0.5 K/mm3 (0.0-0.8) 07/29/18 04:21 Eosinophils # (Manual) 0.0 K/mm3 (0.0-0.4) 07/29/18 04:21 Basophils # (Manual) 0.0 K/mm3 (0.0-0.1) 07/29/18 04:21 Metamyelocytes # 0.0 K/mm3 07/29/18 04:21 Myelocytes # 0.2 K/mm3 07/29/18 04:21 Promyelocytes # 0.0 K/mm3 07/29/18 04:21 Blast Cells # 0.0 K/mm3 07/29/18 04:21 Pathologist Review 07/28/18 06:01 WBC Morphology Not Reportable 07/29/18 04:21 Hypersegmented Neuts Not Reportable 07/29/18 04:21 Hyposegmented Neuts Not Reportable 07/29/18 04:21 Hypogranular Neuts Not Reportable 07/29/18 04:21 Smudge Cells Not Reportable 07/29/18 04:21 Toxic Granulation Not Reportable 07/29/18 04:21 Toxic Vacuolation Not Reportable 07/29/18 04:21 Dohle Bodies 1+ 07/29/18 04:21 Pelger-Huet Anomaly Not Reportable 07/29/18 04:21 Janiya Rods Not Reportable 07/29/18 04:21 Platelet Estimate Appears normal 07/29/18 04:21 Clumped Platelets Not Reportable 07/29/18 04:21 Plt Clumps, EDTA Not Reportable 07/29/18 04:21 Large Platelets Not Reportable 07/29/18 04:21 Giant Platelets Not Reportable 07/29/18 04:21 Platelet Satelliting Not Reportable 07/29/18 04:21 Plt Morphology Comment Not Reportable 07/29/18 04:21 RBC Morphology Not Reportable 07/29/18 04:21 Dimorphic RBCs Not Reportable 07/29/18 04:21 Polychromasia Not Reportable 07/29/18 04:21 Hypochromasia Few 07/29/18 04:21 Poikilocytosis Not Reportable 07/29/18 04:21 Anisocytosis 1+ 07/29/18 04:21 Microcytosis Not Reportable 07/29/18 04:21 Macrocytosis Not Reportable 07/29/18 04:21 Spherocytes Not Reportable 07/29/18 04:21 Pappenheimer Bodies Not Reportable 07/29/18 04:21 Sickle Cells Not Reportable 07/29/18 04:21 Target Cells Not Reportable 07/29/18 04:21 Tear Drop Cells Not Reportable 07/29/18 04:21 Ovalocytes Not Reportable 07/29/18 04:21 Helmet Cells Not Reportable 07/29/18 04:21 Lr[place] Bodies Not Reportable 07/29/18 04:21 Argillite Rings Not Reportable 07/29/18 04:21 Parlin Cells Not Reportable 07/29/18 04:21 Bite Cells Not Reportable 07/29/18 04:21 Crenated Cell Not Reportable 07/29/18 04:21 Elliptocytes Not Reportable 07/29/18 04:21 Acanthocytes (Spur) Not Reportable 07/29/18 04:21 Rouleaux Not Reportable 07/29/18 04:21 Hemoglobin C Crystals Not Reportable 07/29/18 04:21 Schistocytes Not Reportable 07/29/18 04:21 Malaria parasites Not Reportable 07/29/18 04:21 Jigar Bodies Not Reportable 07/29/18 04:21 Hem Pathologist Commnt No 07/29/18 04:21 PT 16.0 Sec. (12.2-14.9) H 07/27/18 17:09 INR 1.24 (0.87-1.13) H 07/27/18 17:09 APTT 31.9 Sec. (24.2-36.6) 07/27/18 17:09 D-Dimer 798.17 ng/mlDDU (0-234) H 07/27/18 15:52 Heparin Anti-Xa Level 0.65 U.I./ml (0.3-0.7) 08/03/18 01:34 POC ABG pH 7.378 (7.35-7.45) 08/02/18 00:44 POC ABG pCO2 66.4 (35-45) H 08/02/18 00:44 POC ABG pO2 64 (80-105) L 08/02/18 00:44 POC ABG HCO3 39.1 08/02/18 00:44 POC ABG Total CO2 41 08/02/18 00:44 POC ABG O2 Sat 91 08/02/18 00:44 POC ABG Base Excess 14 08/02/18 00:44 FiO2 40 % 08/02/18 00:44 Sodium 151 mmol/L (137-145) H 08/03/18 05:25 Potassium 4.5 mmol/L (3.6-5.0) 08/03/18 05:25 Chloride 107.3 mmol/L (98-107) H 08/03/18 05:25 Carbon Dioxide 37 mmol/L (22-30) H 08/03/18 05:25 Anion Gap 11 mmol/L 08/03/18 05:25 BUN 42 mg/dL (9-20) H 08/03/18 05:25 Creatinine 0.6 mg/dL (0.8-1.5) L 08/03/18 05:25 Estimated GFR > 60 ml/min 08/03/18 05:25 BUN/Creatinine Ratio 70 % 08/03/18 05:25 Glucose 263 mg/dL (75-100) H 08/03/18 05:25 POC Glucose 247 (70-105) H 08/03/18 14:33 Lactic Acid 3.90 mmol/L (0.7-2.0) H* 07/28/18 09:20 Calcium 9.8 mg/dL (8.4-10.2) 08/03/18 05:25 Phosphorus 3.60 mg/dL (2.5-4.5) 08/02/18 04:45 Magnesium 2.20 mg/dL (1.7-2.3) 07/31/18 03:14 Total Bilirubin 1.30 mg/dL (0.1-1.2) H 07/27/18 12:59 AST 15 units/L (5-40) 07/27/18 12:59 ALT 16 units/L (7-56) 07/27/18 12:59 Alkaline Phosphatase 62 units/L (35-129) 07/27/18 12:59 Troponin T < 0.010 ng/mL (0.00-0.029) 07/27/18 12:59 NT-Pro-B Natriuret Pep 3913 pg/mL (0-900) H 07/27/18 12:59 Total Protein 6.2 g/dL (6.3-8.2) L 07/27/18 12:59 Albumin 3.6 g/dL (3.9-5) L 07/27/18 12:59 Albumin/Globulin Ratio 1.4 % 07/27/18 12:59 Triglycerides 142 mg/dL (2-149) 08/01/18 04:13 TSH 1.180 mlU/mL (0.270-4.200) 07/27/18 15:52 Free T4 1.28 ng/dL (0.76-1.46) 07/27/18 15:52 Urine Color Yellow (Yellow) 07/29/18 09:24 Urine Turbidity Cloudy (Clear) 07/29/18 09:24 Urine pH 5.0 (5.0-7.0) 07/29/18 09:24 Ur Specific [place] 1.017 (1.003-1.030) 07/29/18 09:24 Urine Protein 30 mg/dl mg/dL (Negative) 07/29/18 09:24 Urine Glucose (UA) Neg mg/dL (Negative) 07/29/18 09:24 Urine Ketones Neg mg/dL (Negative) 07/29/18 09:24 Urine Blood Mod (Negative) 07/29/18 09:24 Urine Nitrite Neg (Negative) 07/29/18 09:24 Urine Bilirubin Neg (Negative) 07/29/18 09:24 Urine Urobilinogen < 2.0 mg/dL (<2.0) 07/29/18 09:24 Ur Leukocyte Esterase Mod (Negative) 07/29/18 09:24 Urine WBC (Auto) 29.0 /HPF (0.0-6.0) H 07/29/18 09:24 Urine RBC (Auto) 7.0 /HPF (0.0-6.0) 07/29/18 09:24 U Epithel Cells (Auto) 2.0 /HPF (0-13.0) 07/29/18 09:24 Urine Bacteria (Auto) 1+ /HPF (Negative) 07/29/18 09:24 Urine Mucus Few /HPF 07/29/18 09:24 Urine Yeast (Budding) 1+ /HPF 07/29/18 09:24 Urine Creatinine 72.3 mg/dL (0.1-20.0) H 07/29/18 09:24 Urine Sodium 12 mmol/L 07/29/18 09:24 Random Vancomycin 9.2 ug/mL (0-40.0) 07/29/18 04:21 Nutrition/Malnutrition Assess - Dietary Evaluation Nutrition/Malnutrition Findings: Nutrition Notes Start: 07/28/18 10:54 Freq: Status: Active Protocol: Document 08/01/18 15:16 OL (Rec: 08/01/18 15:21 OL [id number]) Nutrition Notes Initial or Follow up Reassessment Current Diagnoses Acute Kidney Injury COPD Sepsis Hypertension Heart Failure Respiratory Failure Other Pertinent Diagnosis Hx of Skin Cancer Current Diet Nepro at 50ml/hr Labs/Tests BUN 37 Cr 0.6 Medications Propofol at 5.062mL/hr (113.64 lipid kcal) Solumedrol Height 5 ft 8 in Weight 91.4 kg [place] Body Weight (lbs) 154.0 BMI 30.6 Weight change and time frame Wt. change noted. Subjective/Other Information Nepro infusing at goal rate of 50mL/hr. Per RN, pt. tolerating TF well. Percent of energy/protein needs met: 100%/69% Burn Absent Trauma Absent #1 Nutrition Diagnoses Inadequate oral intake Diagnosis Progress(for reassessment Continues documentation) Is patient on ventilator? Yes Is Patient Ambulatory and/or Out of Bed No REE-([facility]-confined to bed) 1953.308 Kcal/Kg value to use for calculation 14 Approximate Energy Requirements Using 1280 kcal/Kg Calculation Used for Recommendations [facility] Additional Notes protein (2g/kg IBW): 140g daily fluid: 1mL/kcal or per MD Nutrition Intervention Change Diet Order: Continue TF Nutrition Support: Nepro at 50mL/hr 200mL free water flush q4h or per MD. Kcal 2,160 Protein (gm) 97 Fluid (mL) 872 Goal #1 TF tolerance and rate Goal #2 Meet at least 80% of kcal needs and 80-100% of protein needs. Follow-Up By: 08/04/18 Additional Comments f/u: stable TF
[2018-08-03] MEDS: fentaNYL DRIP Premix 2,000 MCG/100 ML BAG IV SCH (19:13)
[2018-08-03] MEDS: LANTUS SUB-Q SCH (22:12)
[2018-08-04] MEDS: CARDIZEM PO SCH ×4 (00:27→18:10)
[2018-08-04] MEDS: HumaLOG SUB-Q SCH ×7 (02:05→22:15)
[2018-08-04 05:12] LABS: Hematocrit 34.1 % (35.5-45.6); Hemoglobin 10.8 gm/dl (11.8-15.2); Mean Corpuscular HGB Conc 32 % (32-34); Mean Corpuscular Volume 103 fl (84-94); Platelet Count 260 K/mm3 (140-440); Red Blood Count 3.31 M/mm3 (3.65-5.03)
[2018-08-04 05:37] LABS: BUN/Creatinine Ratio 58; Blood Urea Nitrogen 35 mg/dL (9-20); Calcium 9.4 mg/dL (8.4-10.2); Hemolysis Index 52
[2018-08-04 06:58] LABS: Anisocytosis 1+; Band Neutrophils # (Manual) 6.1 K/mm3; Basophils % (Manual) 0 % (0.0-1.8); Eosinophils % (Manual) 0 % (0.0-4.3); Total Cells Counted 100
[2018-08-04 06:59] LABS: Hypochromasia 1+; Smudge Cells Few
--- NOTE | 2018-08-04 08:00 | Progress Note ---
Assessment and Plan 1. Acute kidney injury: Likely Vasomotor / hemodynamic CARLEE in the setting of A.fib with RVR. Renal function is better. 2. FEN: Hypernatremia, continue water flushes. Diuril for volume overload. On tube feeding. Monitor. 3. A.fib: Amiodarone and Heparin. 4. Respiratory failure: On vent. 5. Sepsis. Subjective Date of service: 08/04/18 Principal diagnosis: AFib Interval history: Patient was seen and examined at the bedside. Objective - Vital Signs Vital signs: Vital Signs - 12hr 08/03/18 08/03/18 08/03/18 20:15 20:18 20:30 Temperature Pulse Rate 75 74 Pulse Rate [ 74 Anterior Bilateral Throughout] Pulse Rate [ 77 Bilateral] Pulse Rate [ From Monitor] Respiratory 18 Rate Respiratory 19 Rate [Anterior Bilateral Throughout] Respiratory 19 Rate [Bilateral ] Blood Pressure 148/59 128/56 O2 Sat by Pulse 94 91 Oximetry 08/03/18 08/03/18 08/03/18 21:00 21:31 22:01 Temperature Pulse Rate 81 Pulse Rate [ Anterior Bilateral Throughout] Pulse Rate [ Bilateral] Pulse Rate [ From Monitor] Respiratory 17 Rate Respiratory Rate [Anterior Bilateral Throughout] Respiratory Rate [Bilateral ] Blood Pressure 128/56 154/70 125/55 O2 Sat by Pulse 92 89 89 Oximetry 08/03/18 08/03/18 08/03/18 22:05 22:30 22:37 Temperature Pulse Rate 82 79 75 Pulse Rate [ Anterior Bilateral Throughout] Pulse Rate [ Bilateral] Pulse Rate [ From Monitor] Respiratory 16 16 Rate Respiratory Rate [Anterior Bilateral Throughout] Respiratory Rate [Bilateral ] Blood Pressure 131/55 131/55 O2 Sat by Pulse 90 90 90 Oximetry 08/03/18 08/03/18 08/03/18 23:00 23:30 23:49 Temperature Pulse Rate 79 85 90 Pulse Rate [ Anterior Bilateral Throughout] Pulse Rate [ Bilateral] Pulse Rate [ From Monitor] Respiratory 19 18 Rate Respiratory Rate [Anterior Bilateral Throughout] Respiratory Rate [Bilateral ] Blood Pressure 127/55 133/57 133/57 O2 Sat by Pulse 89 91 93 Oximetry 08/03/18 08/04/18 08/04/18 23:56 00:00 00:27 Temperature 98.5 F Pulse Rate 82 82 Pulse Rate [ Anterior Bilateral Throughout] Pulse Rate [ Bilateral] Pulse Rate [ 75 From Monitor] Respiratory 19 Rate Respiratory Rate [Anterior Bilateral Throughout] Respiratory Rate [Bilateral ] Blood Pressure 121/55 121/55 O2 Sat by Pulse 90 Oximetry 08/04/18 08/04/18 08/04/18 00:30 01:00 01:30 Temperature Pulse Rate 82 82 85 Pulse Rate [ Anterior Bilateral Throughout] Pulse Rate [ Bilateral] Pulse Rate [ From Monitor] Respiratory 19 20 22 Rate Respiratory Rate [Anterior Bilateral Throughout] Respiratory Rate [Bilateral ] Blood Pressure 122/55 120/54 125/55 O2 Sat by Pulse 90 90 91 Oximetry 08/04/18 08/04/18 08/04/18 02:00 02:30 03:00 Temperature Pulse Rate 82 84 84 Pulse Rate [ Anterior Bilateral Throughout] Pulse Rate [ Bilateral] Pulse Rate [ 85 From Monitor] Respiratory 22 21 21 Rate Respiratory Rate [Anterior Bilateral Throughout] Respiratory Rate [Bilateral ] Blood Pressure 125/57 124/54 124/54 O2 Sat by Pulse 90 90 91 Oximetry 08/04/18 08/04/18 08/04/18 03:30 03:48 04:00 Temperature 99.1 F Pulse Rate 82 81 Pulse Rate [ Anterior Bilateral Throughout] Pulse Rate [ Bilateral] Pulse Rate [ 85 From Monitor] Respiratory 19 19 Rate Respiratory Rate [Anterior Bilateral Throughout] Respiratory Rate [Bilateral ] Blood Pressure 123/57 121/54 O2 Sat by Pulse 91 91 Oximetry 08/04/18 08/04/18 08/04/18 04:30 04:44 05:00 Temperature Pulse Rate 80 83 80 Pulse Rate [ Anterior Bilateral Throughout] Pulse Rate [ Bilateral] Pulse Rate [ From Monitor] Respiratory 19 20 Rate Respiratory Rate [Anterior Bilateral Throughout] Respiratory Rate [Bilateral ] Blood Pressure 122/54 122/54 121/57 O2 Sat by Pulse 91 92 91 Oximetry 08/04/18 08/04/18 08/04/18 05:30 05:32 06:00 Temperature Pulse Rate 77 80 87 Pulse Rate [ Anterior Bilateral Throughout] Pulse Rate [ Bilateral] Pulse Rate [ 85 From Monitor] Respiratory 22 24 Rate Respiratory Rate [Anterior Bilateral Throughout] Respiratory Rate [Bilateral ] Blood Pressure 127/57 127/57 143/62 O2 Sat by Pulse 91 89 Oximetry 08/04/18 06:31 Temperature Pulse Rate 93 H Pulse Rate [ Anterior Bilateral Throughout] Pulse Rate [ Bilateral] Pulse Rate [ From Monitor] Respiratory 31 H Rate Respiratory Rate [Anterior Bilateral Throughout] Respiratory Rate [Bilateral ] Blood Pressure 138/64 O2 Sat by Pulse 86 Oximetry - General Appearance General appearance: well-developed, appears stated age, sedated on ventilator, intubated EENT: ATNC Neck: supple Respiratory: Present: Clear to Ascultation Cardiology: regular, S1S2, no murmurs Gastrointestinal: normoactive bowel sounds, no tenderness, no distended Integumentary: no rash Neurologic: other (sedated) Musculoskeletal: other (dependent edema noted) - Lab 08/04/18 05:05 08/04/18 05:05 Most recent lab results Calcium 9.4 mg/dL (8.4-10.2) 08/04/18 05:05 Phosphorus 3.60 mg/dL (2.5-4.5) 08/02/18 04:45 Magnesium 2.20 mg/dL (1.7-2.3) 07/31/18 03:14 Urine Creatinine 72.3 mg/dL (0.1-20.0) H 07/29/18 09:24 Urine Sodium 12 mmol/L 07/29/18 09:24 Medications & Allergies - Medications Allergies/Adverse Reactions: Allergies No Known Allergies Allergy (Verified 12/12/13 06:46) Home Medications: Home Medications Medication Instructions Recorded Confirmed Last Taken Type Pravastatin Sodium 40 mg PO DAILY 12/12/13 07/27/18 07/27/18 History Clopidogrel [Plavix] 75 mg PO DAILY #30 tablet 04/03/15 07/27/18 07/27/18 Rx amLODIPine [Norvasc] 10 mg PO DAILY #30 tablet 04/03/15 07/27/18 07/27/18 Rx Fluticasone/Salmeterol [Advair 1 puff IH BID 12/31/15 07/27/18 07/27/18 History Diskus 250-50 mcg] ALBUTEROL Inhaler (OR & NICU) 2 puff IH QID PRN 07/27/18 07/27/18 Unknown History [Proair] Aspirin [Aspirin BABY CHEW TAB] 81 mg PO DAILY 07/27/18 07/27/18 07/27/18 History Cyanocobalamin (Vitamin B-12) 2,500 mcg PO DAILY 07/27/18 07/27/18 07/27/18 History [Vitamin B12] Vinegar [place]-3S/Dha/Epa/Fish Oil/D3 [Fish 1 each PO DAILY 07/27/18 07/27/18 07/27/18 H istory Woo-[place]-8-Vit D Softgel] Active Medications: Generic Name Dose Route Start Last Admin Trade Name Freq PRN Reason Stop Dose Admin Acetaminophen 650 mg 07/28/18 04:34 07/28/18 05:29 Tylenol SC 650 mg Q4H PRN Administration Fever >101 Amiodarone HCl 200 mg 07/29/18 14:00 08/03/18 22:06 Cordarone PO 200 mg BID IGNACIO Administration Lipase/Protease/Amylase 1 each 07/28/18 13:57 Pancreaze 10,500 Unit FEEDTUBE PRN PRN For Clogged Feeding Tube Arformoterol Tartrate 15 mcg 07/27/18 20:00 08/03/18 20:14 Brovana Nebu IH 15 mcg Q12HRT IGNACIO Administration Benzocaine 1 spray 08/02/18 11:00 Hurricaine One 20% Topical [place] MM 08/04/18 11:01 PREOP IGNACIO Budesonide 0.5 mg 07/27/18 20:00 08/03/18 20:15 Pulmicort IH 0.5 mg Q12HRT IGNACIO Administration Clopidogrel Bisulfate 75 mg 07/28/18 10:00 08/03/18 09:53 Plavix PO 75 mg DAILY IGNACIO Administration Cyanocobalamin 2,500 mcg 07/28/18 10:00 08/03/18 09:53 Vitamin B-12 PO 2,500 mcg QDAY IGNACIO Administration Diltiazem HCl 60 mg 07/27/18 18:00 08/04/18 05:32 Cardizem PO 60 mg Q6HR IGNACIO Administration Famotidine 20 mg 08/01/18 10:00 08/03/18 22:06 Pepcid PO 20 mg BID IGNCAIO Administration Hydrophilic Ointment 1 applic 07/27/18 20:09 Vaseline Lip Therapy TP Q2HR PRN Dry Lips Heparin Sodium/Sodium Chloride 25,000 unit in 500 mls @ 24 mls/hr 07/27/18 17:00 08/04/18 02:46 Heparin/ 0.45% Nacl-25,000 Unit/500 Ml IV 1,700 units/hr TITR IGNACIO 34 mls/hr Titration Protocol 1,200 UNITS/HR Propofol 1,000 mg in 100 mls @ 2.531 mls/hr 07/27/18 21:00 08/03/18 19:21 Diprivan 10 Mg/Ml IV 5 mcg/kg/min TITR IGNACIO 2.531 mls/hr Administration Protocol 5 MCG/KG/MIN Cefepime HCl 2 gm in 100 mls @ 200 mls/hr 08/01/18 14:00 08/03/18 22:14 Maxipime/Ns 2 Gm/100 Ml IV 200 mls/hr Q12HR IGNACIO Administration Protocol Fentanyl Citrate 2,000 mcg in 100 mls @ 2.285 mls/hr 08/01/18 14:00 08/03/18 19:13 Fentanyl Drip Premix IV 1 mcg/kg/hr TITR IGNACIO 4.57 mls/hr Administration Protocol 0.5 MCG/KG/HR Insulin Glargine 15 units 08/03/18 22:00 08/03/18 22:12 Lantus SUB-Q 15 units QHS IGNACIO Administration Insulin Human Lispro 0 unit 07/29/18 07:00 08/04/18 05:33 Humalog SUB-Q 1 unit Q4HR IGNACIO Administration Protocol Methylprednisolone Sodium Succinate 40 mg 08/03/18 22:00 08/03/18 22:05 Solu-Medrol IV 40 mg Q12HR IGNACIO Administration Multi-Ingred Cream/Lotion/Oil/Oint 1 applic 07/27/18 20:09 Artificial Tears Ophth Oint OU Q4HR PRN Dry Eye(s) Pravastatin Sodium 40 mg 07/28/18 10:00 08/03/18 09:52 Pravachol PO 40 mg DAILY IGNACIO Administration Quetiapine Fumarate 100 mg 08/03/18 10:00 08/03/18 22:06 Seroquel PO 100 mg BID IGNACIO Administration Simple Syrup 15 ml 07/28/18 13:57 Simple Syrup FEEDTUBE PRN PRN Hypoglycemia Simple Syrup 30 ml 07/28/18 13:57 Simple Syrup FEEDTUBE PRN PRN Hypoglycemia Sodium Bicarbonate 325 mg 07/28/18 13:57 Sodium Bicarbonate FEEDTUBE PRN PRN For Clogged Feeding Tube Sodium Chloride 10 ml 07/27/18 22:00 08/03/18 22:07 Sodium Chloride Flush Syringe 10 Ml IV 10 ml BID IGNACIO Administration Sodium Chloride 10 ml 12/12/18 15:59 Sodium Chloride Flush Syringe 10 Ml IV PRN PRN LINE FLUSH
[2018-08-04] MEDS: BROVANA NEBU IH SCH ×2 (08:26→20:08)
[2018-08-04] MEDS: PULMICORT IH SCH ×2 (08:26→20:08)
--- NOTE | 2018-08-04 09:05 | Progress Note ---
Assessment and Plan Acute hypoxemic respiratory failure, on mechanical ventilatory support. Atrial fibrillation with rapid ventricular response, now sinus. 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 Elevated D-dimer. Leukocytosis. Sepsis Chronic obstructive lung disease-acute exacerbation. Hypertension. Peripheral vascular disease. Mixed acidosis, respiratory and metabolic. Acute kidney injury. Lactic acidosis. Elevated BNP level of 3913. History of hypertension. History of arthritis. - Daily SAT and SBTas tolerated - VAP bundle addressed - titrate sedation for RASS 0 to -1 -Avoid delirium - continue enteric nutrition as tolerated - continue supplemental oxygen to keep sats > 90% - aspiration precautions - continue bronchodilators with pulmonary hygiene per RT -Therapeutic anticoagulation -Stress ulcer prophylaxis -Antibiotics to complete course -Mobility for pressure ulcer prevention -PT/OT to treat Discussed in ICU-IDT rounds FULL CODE CONDITION: CRITICAL PROGNOSIS: GUARDED The high probability of a clinically significant, sudden or life-threatening deterioration of the [respiratory, cardiovascular, renal] system(s) required my full and direct attention, intervention and personal management. The aggregate critical care time was [35] minutes without overlap. Time includes spent on; [x] Data Review and interpretation [x] Patient assessment and monitoring of vital signs [x] Documentation [x] Medication orders and management Subjective Date of service: 08/04/18 Principal diagnosis: AFib Interval history: Patient is seen today for: Acute hypoxemic respiratory failure on MVS; Atrial fibrillation with RVR; Possible congestive heart failure with an acute exacerbation; History of deep venous thrombosis; Elevated D-dimer. Seen and examined at bedside; 24hour events reviewed; vitals, labs, medications, chart notes reviewed; nursing and respiratory care staff consulted; no adverse overnight events reported to me; remains on MVS;currently in sinus rhythm; no emesis or overt aspiration and tolerating tube feeds; no new issues otherwise, some agitation during the day Objective Vital Signs - 12hr 08/03/18 08/03/18 08/03/18 21:31 22:01 22:05 Temperature Pulse Rate 81 82 Pulse Rate [ Bilateral] Pulse Rate [ From Monitor] Respiratory 17 Rate Respiratory Rate [Bilateral ] Blood Pressure 154/70 125/55 O2 Sat by Pulse 89 89 90 Oximetry 08/03/18 08/03/18 08/03/18 22:30 22:37 23:00 Temperature Pulse Rate 79 75 79 Pulse Rate [ Bilateral] Pulse Rate [ From Monitor] Respiratory 16 16 19 Rate Respiratory Rate [Bilateral ] Blood Pressure 131/55 131/55 127/55 O2 Sat by Pulse 90 90 89 Oximetry 08/03/18 08/03/18 08/03/18 23:30 23:49 23:56 Temperature 98.5 F Pulse Rate 85 90 Pulse Rate [ Bilateral] Pulse Rate [ From Monitor] Respiratory 18 Rate Respiratory Rate [Bilateral ] Blood Pressure 133/57 133/57 O2 Sat by Pulse 91 93 Oximetry 08/04/18 08/04/18 08/04/18 00:00 00:27 00:30 Temperature Pulse Rate 82 82 82 Pulse Rate [ Bilateral] Pulse Rate [ 75 From Monitor] Respiratory 19 19 Rate Respiratory Rate [Bilateral ] Blood Pressure 121/55 121/55 122/55 O2 Sat by Pulse 90 90 Oximetry 08/04/18 08/04/18 08/04/18 01:00 01:30 02:00 Temperature Pulse Rate 82 85 82 Pulse Rate [ Bilateral] Pulse Rate [ 85 From Monitor] Respiratory 20 22 22 Rate Respiratory Rate [Bilateral ] Blood Pressure 120/54 125/55 125/57 O2 Sat by Pulse 90 91 90 Oximetry 08/04/18 08/04/18 08/04/18 02:30 03:00 03:30 Temperature Pulse Rate 84 84 82 Pulse Rate [ Bilateral] Pulse Rate [ From Monitor] Respiratory 21 21 19 Rate Respiratory Rate [Bilateral ] Blood Pressure 124/54 124/54 123/57 O2 Sat by Pulse 90 91 91 Oximetry 08/04/18 08/04/18 08/04/18 03:48 04:00 04:30 Temperature 99.1 F Pulse Rate 81 80 Pulse Rate [ Bilateral] Pulse Rate [ 85 From Monitor] Respiratory 19 19 Rate Respiratory Rate [Bilateral ] Blood Pressure 121/54 122/54 O2 Sat by Pulse 91 91 Oximetry 08/04/18 08/04/18 08/04/18 04:44 05:00 05:30 Temperature Pulse Rate 83 80 77 Pulse Rate [ Bilateral] Pulse Rate [ From Monitor] Respiratory 20 22 Rate Respiratory Rate [Bilateral ] Blood Pressure 122/54 121/57 127/57 O2 Sat by Pulse 92 91 91 Oximetry 08/04/18 08/04/18 08/04/18 05:32 06:00 06:31 Temperature Pulse Rate 80 87 93 H Pulse Rate [ Bilateral] Pulse Rate [ 85 From Monitor] Respiratory 24 31 H Rate Respiratory Rate [Bilateral ] Blood Pressure 127/57 143/62 138/64 O2 Sat by Pulse 89 86 Oximetry 08/04/18 08/04/18 08:26 08:33 Temperature Pulse Rate 90 Pulse Rate [ 82 Bilateral] Pulse Rate [ From Monitor] Respiratory Rate Respiratory 13 Rate [Bilateral ] Blood Pressure 138/76 O2 Sat by Pulse 90 Oximetry Constitutional: appears uncomfortable, other (elderly looking CM, normocephalic and atraumatic with mildly increased respiratory effort) Eyes: non-icteric ENT: oropharynx moist, other (ETT 23 cm SUHAS) Neck: supple, no lymphadenopathy, no JVD, other (No thyromegaly) Effort: mildly labored Ascultation: Bilateral: diminished breath sounds, rhonchi Percussion: Bilateral: not dull Cardiovascular: irregular rhythm, other (+ systolic murmur) Gastrointestinal: hypoactive bowel sounds, soft, non-tender, non-distended, other (No palpable HSM) Integumentary: rash, other (upper extremity edema) Extremities: no cyanosis, pink and warm, pulses normal, no ischemia or petechiae Neurologic: non-focal exam (grossly), pupils equal and round, other (moves all extemities, was able to tolerate sitting up at the bedside with PT) Psychiatric: mood appropriate, affect normal CBC and BMP: 08/04/18 05:05 08/04/18 05:05 ABG, PT/INR, D-dimer: ABG POC ABG pH 7.422 (7.35-7.45) 08/04/18 05:33 POC ABG pCO2 65.7 (35-45) H 08/04/18 05:33 POC ABG pO2 63 (80-105) L 08/04/18 05:33 POC ABG HCO3 42.8 08/04/18 05:33 POC ABG Total CO2 45 08/04/18 05:33 POC ABG O2 Sat 91 08/04/18 05:33 PT/INR, D-dimer PT 16.0 Sec. (12.2-14.9) H 07/27/18 17:09 INR 1.24 (0.87-1.13) H 07/27/18 17:09 D-Dimer 798.17 ng/mlDDU (0-234) H 07/27/18 15:52 Abnormal lab findings: Abnormal Labs 07/27/1818 07/27/18 12:59 12:59 12:59 WBC 15.8 H RBC Hgb Hct MCV 104 H MCH 34 H RDW 16.3 H Seg Neuts % (Manual) 88.0 H Lymphocytes % (Manual) 3.0 L Nucleated RBC % Seg Neutrophils # Man 13.9 H Lymphocytes # (Manual) 0.5 L Monocytes # (Manual) PT 17.0 H INR 1.34 H D-Dimer Heparin Anti-Xa Level POC ABG pH POC ABG pCO2 POC ABG pO2 Sodium Potassium Chloride Carbon Dioxide 21 L BUN 38 H Creatinine 1.6 H Glucose POC Glucose Lactic Acid Calcium Phosphorus Total Bilirubin 1.30 H C-Reactive Protein NT-Pro-B Natriuret Pep 3913 H Total Protein 6.2 L Albumin 3.6 L Urine WBC (Auto) Urine Creatinine 07/27/18 07/27/18 07/27/18 15:52 16:12 17:09 WBC RBC Hgb Hct MCV MCH RDW Seg Neuts % (Manual) Lymphocytes % (Manual) Nucleated RBC % Seg Neutrophils # Man Lymphocytes # (Manual) Monocytes # (Manual) PT 16.0 H INR 1.24 H D-Dimer 798.17 H Heparin Anti-Xa Level POC ABG pH POC ABG pCO2 POC ABG pO2 Sodium Potassium Chloride Carbon Dioxide BUN Creatinine Glucose POC Glucose Lactic Acid 5.00 H* Calcium Phosphorus Total Bilirubin C-Reactive Protein NT-Pro-B Natriuret Pep Total Protein Albumin Urine WBC (Auto) Urine Creatinine 07/27/18 07/27/18 07/27/18 17:59 18:07 21:31 WBC RBC Hgb Hct MCV MCH RDW Seg Neuts % (Manual) Lymphocytes % (Manual) Nucleated RBC % Seg Neutrophils # Man Lymphocytes # (Manual) Monocytes # (Manual) PT INR D-Dimer Heparin Anti-Xa Level POC ABG pH 7.344 L POC ABG pCO2 POC ABG pO2 36 L Sodium Potassium Chloride Carbon Dioxide BUN Creatinine Glucose POC Glucose Lactic Acid 5.20 H* 5.00 H* Calcium Phosphorus Total Bilirubin C-Reactive Protein NT-Pro-B Natriuret Pep Total Protein Albumin Urine WBC (Auto) Urine Creatinine 07/27/18 07/27/18 07/27/18 21:57 22:42 23:26 WBC RBC Hgb Hct MCV MCH RDW Seg Neuts % (Manual) Lymphocytes % (Manual) Nucleated RBC % Seg Neutrophils # Man Lymphocytes # (Manual) Monocytes # (Manual) PT INR D-Dimer Heparin Anti-Xa Level POC ABG pH 7.199 L POC ABG pCO2 62.0 H POC ABG pO2 Sodium Potassium Chloride Carbon Dioxide BUN Creatinine Glucose POC Glucose Lactic Acid 4.70 H* 5.00 H* Calcium Phosphorus Total Bilirubin C-Reactive Protein NT-Pro-B Natriuret Pep Total Protein Albumin Urine WBC (Auto) Urine Creatinine 07/28/18 07/28/18 07/28/18 00:45 05:40 05:58 WBC RBC Hgb Hct MCV MCH RDW Seg Neuts % (Manual) Lymphocytes % (Manual) Nucleated RBC % Seg Neutrophils # Man Lymphocytes # (Manual) Monocytes # (Manual) PT INR D-Dimer Heparin Anti-Xa Level 0.11 L POC ABG pH 7.186 L POC ABG pCO2 60.1 H POC ABG pO2 68 L Sodium Potassium Chloride Carbon Dioxide BUN Creatinine Glucose POC Glucose Lactic Acid 4.70 H* Calcium Phosphorus Total Bilirubin C-Reactive Protein NT-Pro-B Natriuret Pep Total Protein Albumin Urine WBC (Auto) Urine Creatinine 07/28/18 07/28/18 07/28/18 06:01 06:01 07:19 WBC 12.5 H RBC 3.51 L Hgb 11.5 L Hct MCV 104 H MCH 33 H RDW 16.6 H Seg Neuts % (Manual) Lymphocytes % (Manual) Nucleated RBC % Seg Neutrophils # Man Lymphocytes # (Manual) Monocytes # (Manual) PT INR D-Dimer Heparin Anti-Xa Level 0.14 L POC ABG pH POC ABG pCO2 POC ABG pO2 Sodium 135 L Potassium 5.1 H Chloride 95.0 L Carbon Dioxide 21 L BUN 54 H Creatinine 2.6 H D Glucose POC Glucose Lactic Acid Calcium Phosphorus Total Bilirubin C-Reactive Protein NT-Pro-B Natriuret Pep Total Protein Albumin Urine WBC (Auto) Urine Creatinine 07/28/18 07/28/18 07/28/18 07:19 09:20 11:06 WBC RBC Hgb Hct MCV MCH RDW Seg Neuts % (Manual) Lymphocytes % (Manual) Nucleated RBC % Seg Neutrophils # Man Lymphocytes # (Manual) Monocytes # (Manual) PT INR D-Dimer Heparin Anti-Xa Level POC ABG pH 7.266 L POC ABG pCO2 49.7 H POC ABG pO2 74 L Sodium Potassium Chloride Carbon Dioxide BUN Creatinine Glucose POC Glucose Lactic Acid 4.00 H* 3.90 H* Calcium Phosphorus Total Bilirubin C-Reactive Protein NT-Pro-B Natriuret Pep Total Protein Albumin Urine WBC (Auto) Urine Creatinine 07/28/18 07/28/18 07/28/18 15:06 20:45 23:36 WBC RBC Hgb Hct MCV MCH RDW Seg Neuts % (Manual) Lymphocytes % (Manual) Nucleated RBC % Seg Neutrophils # Man Lymphocytes # (Manual) Monocytes # (Manual) PT INR D-Dimer Heparin Anti-Xa Level 0.15 L POC ABG pH POC ABG pCO2 POC ABG pO2 Sodium 134 L Potassium 5.2 H Chloride Carbon Dioxide BUN 58 H Creatinine 2.1 H Glucose 110 H POC Glucose 125 H Lactic Acid Calcium Phosphorus Total Bilirubin C-Reactive Protein NT-Pro-B Natriuret Pep Total Protein Albumin Urine WBC (Auto) Urine Creatinine 07/29/18 07/29/18 07/29/18 01:12 04:21 04:21 WBC RBC 3.21 L Hgb 10.8 L Hct 33.0 L MCV 103 H MCH 34 H RDW 16.4 H Seg Neuts % (Manual) Lymphocytes % (Manual) 11.0 L Nucleated RBC % Seg Neutrophils # Man Lymphocytes # (Manual) 1.0 L Monocytes # (Manual) PT INR D-Dimer Heparin Anti-Xa Level 0.21 L POC ABG pH POC ABG pCO2 POC ABG pO2 Sodium Potassium Chloride Carbon Dioxide BUN 48 H Creatinine 1.6 H Glucose 166 H POC Glucose Lactic Acid Calcium Phosphorus Total Bilirubin C-Reactive Protein NT-Pro-B Natriuret Pep Total Protein Albumin Urine WBC (Auto) Urine Creatinine 07/29/18 07/29/18 07/29/18 05:19 08:16 09:24 WBC RBC Hgb Hct MCV MCH RDW Seg Neuts % (Manual) Lymphocytes % (Manual) Nucleated RBC % Seg Neutrophils # Man Lymphocytes # (Manual) Monocytes # (Manual) PT INR D-Dimer Heparin Anti-Xa Level 0.25 L POC ABG pH POC ABG pCO2 POC ABG pO2 Sodium Potassium Chloride Carbon Dioxide BUN Creatinine Glucose POC Glucose 181 H Lactic Acid Calcium Phosphorus Total Bilirubin C-Reactive Protein NT-Pro-B Natriuret Pep Total Protein Albumin Urine WBC (Auto) 29.0 H Urine Creatinine 07/29/18 07/29/18 07/29/18 09:24 10:00 15:03 WBC RBC Hgb Hct MCV MCH RDW Seg Neuts % (Manual) Lymphocytes % (Manual) Nucleated RBC % Seg Neutrophils # Man Lymphocytes # (Manual) Monocytes # (Manual) PT INR D-Dimer Heparin Anti-Xa Level POC ABG pH POC ABG pCO2 POC ABG pO2 Sodium Potassium Chloride Carbon Dioxide BUN Creatinine Glucose POC Glucose 195 H 167 H Lactic Acid Calcium Phosphorus Total Bilirubin C-Reactive Protein NT-Pro-B Natriuret Pep Total Protein Albumin Urine WBC (Auto) Urine Creatinine 72.3 H 07/29/18 07/29/18 07/30/18 17:51 21:32 01:38 WBC RBC Hgb Hct MCV MCH RDW Seg Neuts % (Manual) Lymphocytes % (Manual) Nucleated RBC % Seg Neutrophils # Man Lymphocytes # (Manual) Monocytes # (Manual) PT INR D-Dimer Heparin Anti-Xa Level POC ABG pH POC ABG pCO2 POC ABG pO2 Sodium Potassium Chloride Carbon Dioxide BUN Creatinine Glucose POC Glucose 167 H 217 H 194 H Lactic Acid Calcium Phosphorus Total Bilirubin C-Reactive Protein NT-Pro-B Natriuret Pep Total Protein Albumin Urine WBC (Auto) Urine Creatinine 07/30/18 07/30/18 07/30/18 03:21 05:13 10:18 WBC RBC Hgb Hct MCV MCH RDW Seg Neuts % (Manual) Lymphocytes % (Manual) Nucleated RBC % Seg Neutrophils # Man Lymphocytes # (Manual) Monocytes # (Manual) PT INR D-Dimer Heparin Anti-Xa Level POC ABG pH POC ABG pCO2 50.3 H POC ABG pO2 78 L Sodium Potassium Chloride Carbon Dioxide BUN 41 H Creatinine Glucose 202 H POC Glucose 151 H Lactic Acid Calcium Phosphorus Total Bilirubin C-Reactive Protein NT-Pro-B Natriuret Pep Total Protein Albumin Urine WBC (Auto) Urine Creatinine 07/30/18 07/30/18 07/30/18 11:29 16:28 18:12 WBC RBC Hgb Hct MCV MCH RDW Seg Neuts % (Manual) Lymphocytes % (Manual) Nucleated RBC % Seg Neutrophils # Man Lymphocytes # (Manual) Monocytes # (Manual) PT INR D-Dimer Heparin Anti-Xa Level POC ABG pH 7.326 L POC ABG pCO2 53.2 H POC ABG pO2 70 L Sodium Potassium Chloride Carbon Dioxide BUN Creatinine Glucose POC Glucose 247 H 212 H Lactic Acid Calcium Phosphorus Total Bilirubin C-Reactive Protein NT-Pro-B Natriuret Pep Total Protein Albumin Urine WBC (Auto) Urine Creatinine 07/30/18 07/30/18 07/31/18 20:08 21:52 01:59 WBC RBC Hgb Hct MCV MCH RDW Seg Neuts % (Manual) Lymphocytes % (Manual) Nucleated RBC % Seg Neutrophils # Man Lymphocytes # (Manual) Monocytes # (Manual) PT INR D-Dimer Heparin Anti-Xa Level POC ABG pH POC ABG pCO2 POC ABG pO2 Sodium Potassium Chloride Carbon Dioxide BUN Creatinine Glucose POC Glucose 205 H 215 H 242 H Lactic Acid Calcium Phosphorus Total Bilirubin C-Reactive Protein NT-Pro-B Natriuret Pep Total Protein Albumin Urine WBC (Auto) Urine Creatinine 07/31/18 07/31/18 07/31/18 03:14 03:14 04:55 WBC RBC Hgb 10.6 L Hct 33.2 L MCV MCH RDW Seg Neuts % (Manual) Lymphocytes % (Manual) Nucleated RBC % Seg Neutrophils # Man Lymphocytes # (Manual) Monocytes # (Manual) PT INR D-Dimer Heparin Anti-Xa Level POC ABG pH 7.331 L POC ABG pCO2 67.1 H POC ABG pO2 Sodium Potassium Chloride Carbon Dioxide BUN 36 H Creatinine 0.7 L Glucose 242 H POC Glucose Lactic Acid Calcium 10.3 H Phosphorus 2.30 L Total Bilirubin C-Reactive Protein NT-Pro-B Natriuret Pep Total Protein Albumin Urine WBC (Auto) Urine Creatinine 07/31/18 07/31/18 07/31/18 05:37 10:08 14:07 WBC RBC Hgb Hct MCV MCH RDW Seg Neuts % (Manual) Lymphocytes % (Manual) Nucleated RBC % Seg Neutrophils # Man Lymphocytes # (Manual) Monocytes # (Manual) PT INR D-Dimer Heparin Anti-Xa Level POC ABG pH POC ABG pCO2 POC ABG pO2 Sodium Potassium Chloride Carbon Dioxide BUN Creatinine Glucose POC Glucose 193 H 247 H 225 H Lactic Acid Calcium Phosphorus Total Bilirubin C-Reactive Protein NT-Pro-B Natriuret Pep Total Protein Albumin Urine WBC (Auto) Urine Creatinine 07/31/18 07/31/18 08/01/18 18:12 21:34 02:00 WBC RBC Hgb Hct MCV MCH RDW Seg Neuts % (Manual) Lymphocytes % (Manual) Nucleated RBC % Seg Neutrophils # Man Lymphocytes # (Manual) Monocytes # (Manual) PT INR D-Dimer Heparin Anti-Xa Level POC ABG pH POC ABG pCO2 POC ABG pO2 Sodium Potassium Chloride Carbon Dioxide BUN Creatinine Glucose POC Glucose 197 H 204 H 239 H Lactic Acid Calcium Phosphorus Total Bilirubin C-Reactive Protein NT-Pro-B Natriuret Pep Total Protein Albumin Urine WBC (Auto) Urine Creatinine 08/01/18 08/01/18 08/01/18 04:13 04:37 05:29 WBC RBC Hgb Hct MCV MCH RDW Seg Neuts % (Manual) Lymphocytes % (Manual) Nucleated RBC % Seg Neutrophils # Man Lymphocytes # (Manual) Monocytes # (Manual) PT INR D-Dimer Heparin Anti-Xa Level POC ABG pH 7.296 L POC ABG pCO2 81.9 H POC ABG pO2 190 H Sodium 150 H D Potassium Chloride Carbon Dioxide 37 H D BUN 37 H Creatinine 0.6 L Glucose 223 H POC Glucose 219 H Lactic Acid Calcium Phosphorus Total Bilirubin C-Reactive Protein NT-Pro-B Natriuret Pep Total Protein Albumin Urine WBC (Auto) Urine Creatinine 08/01/18 08/01/18 08/01/18 09:28 11:00 17:36 WBC RBC Hgb Hct MCV MCH RDW Seg Neuts % (Manual) Lymphocytes % (Manual) Nucleated RBC % Seg Neutrophils # Man Lymphocytes # (Manual) Monocytes # (Manual) PT INR D-Dimer Heparin Anti-Xa Level POC ABG pH POC ABG pCO2 61.2 H POC ABG pO2 69 L Sodium Potassium Chloride Carbon Dioxide BUN Creatinine Glucose POC Glucose 185 H 234 H Lactic Acid Calcium Phosphorus Total Bilirubin C-Reactive Protein NT-Pro-B Natriuret Pep Total Protein Albumin Urine WBC (Auto) Urine Creatinine 08/01/18 08/02/18 08/02/18 21:54 00:08 00:44 WBC RBC Hgb Hct MCV MCH RDW Seg Neuts % (Manual) Lymphocytes % (Manual) Nucleated RBC % Seg Neutrophils # Man Lymphocytes # (Manual) Monocytes # (Manual) PT INR D-Dimer Heparin Anti-Xa Level 0.77 H POC ABG pH POC ABG pCO2 66.4 H POC ABG pO2 64 L Sodium Potassium Chloride Carbon Dioxide BUN Creatinine Glucose POC Glucose 242 H Lactic Acid Calcium Phosphorus Total Bilirubin C-Reactive Protein NT-Pro-B Natriuret Pep Total Protein Albumin Urine WBC (Auto) Urine Creatinine 08/02/18 08/02/18 08/02/18 02:46 04:45 04:45 WBC RBC Hgb 10.7 L Hct 33.7 L MCV MCH RDW Seg Neuts % (Manual) Lymphocytes % (Manual) Nucleated RBC % Seg Neutrophils # Man Lymphocytes # (Manual) Monocytes # (Manual) PT INR D-Dimer Heparin Anti-Xa Level POC ABG pH POC ABG pCO2 POC ABG pO2 Sodium 152 H Potassium Chloride 108.1 H Carbon Dioxide 39 H BUN 38 H Creatinine 0.6 L Glucose 226 H POC Glucose 206 H Lactic Acid Calcium Phosphorus Total Bilirubin C-Reactive Protein NT-Pro-B Natriuret Pep Total Protein Albumin Urine WBC (Auto) Urine Creatinine 08/02/18 08/02/18 08/02/18 05:31 09:46 14:23 WBC RBC Hgb Hct MCV MCH RDW Seg Neuts % (Manual) Lymphocytes % (Manual) Nucleated RBC % Seg Neutrophils # Man Lymphocytes # (Manual) Monocytes # (Manual) PT INR D-Dimer Heparin Anti-Xa Level 0.91 H POC ABG pH POC ABG pCO2 POC ABG pO2 Sodium Potassium Chloride Carbon Dioxide BUN Creatinine Glucose POC Glucose 214 H 210 H Lactic Acid Calcium Phosphorus Total Bilirubin C-Reactive Protein NT-Pro-B Natriuret Pep Total Protein Albumin Urine WBC (Auto) Urine Creatinine 08/02/18 08/02/18 08/02/18 15:46 17:56 21:50 WBC RBC Hgb Hct MCV MCH RDW Seg Neuts % (Manual) Lymphocytes % (Manual) Nucleated RBC % Seg Neutrophils # Man Lymphocytes # (Manual) Monocytes # (Manual) PT INR D-Dimer Heparin Anti-Xa Level 0.99 H POC ABG pH POC ABG pCO2 POC ABG pO2 Sodium Potassium Chloride Carbon Dioxide BUN Creatinine Glucose POC Glucose 252 H 222 H Lactic Acid Calcium Phosphorus Total Bilirubin C-Reactive Protein NT-Pro-B Natriuret Pep Total Protein Albumin Urine WBC (Auto) Urine Creatinine 08/03/18 08/03/18 08/03/18 02:18 05:21 05:25 WBC RBC Hgb Hct MCV MCH RDW Seg Neuts % (Manual) Lymphocytes % (Manual) Nucleated RBC % Seg Neutrophils # Man Lymphocytes # (Manual) Monocytes # (Manual) PT INR D-Dimer Heparin Anti-Xa Level POC ABG pH POC ABG pCO2 POC ABG pO2 Sodium 151 H Potassium Chloride 107.3 H Carbon Dioxide 37 H BUN 42 H Creatinine 0.6 L Glucose 263 H POC Glucose 241 H 241 H Lactic Acid Calcium Phosphorus Total Bilirubin C-Reactive Protein NT-Pro-B Natriuret Pep Total Protein Albumin Urine WBC (Auto) Urine Creatinine 08/03/18 08/03/18 08/03/18 09:11 12:20 14:33 WBC RBC Hgb Hct MCV MCH RDW Seg Neuts % (Manual) Lymphocytes % (Manual) Nucleated RBC % Seg Neutrophils # Man Lymphocytes # (Manual) Monocytes # (Manual) PT INR D-Dimer Heparin Anti-Xa Level POC ABG pH POC ABG pCO2 POC ABG pO2 Sodium Potassium Chloride Carbon Dioxide BUN Creatinine Glucose POC Glucose 272 H 234 H 247 H Lactic Acid Calcium Phosphorus Total Bilirubin C-Reactive Protein NT-Pro-B Natriuret Pep Total Protein Albumin Urine WBC (Auto) Urine Creatinine 08/03/18 08/03/18 08/04/18 16:48 21:21 01:56 WBC RBC Hgb Hct MCV MCH RDW Seg Neuts % (Manual) Lymphocytes % (Manual) Nucleated RBC % Seg Neutrophils # Man Lymphocytes # (Manual) Monocytes # (Manual) PT INR D-Dimer Heparin Anti-Xa Level POC ABG pH POC ABG pCO2 POC ABG pO2 Sodium Potassium Chloride Carbon Dioxide BUN Creatinine Glucose POC Glucose 180 H 189 H Lactic Acid Calcium Phosphorus Total Bilirubin C-Reactive Protein 2.30 H NT-Pro-B Natriuret Pep Total Protein Albumin Urine WBC (Auto) Urine Creatinine 08/04/18 08/04/18 08/04/18 01:58 05:05 05:05 WBC 25.5 H RBC 3.31 L Hgb 10.8 L Hct 34.1 L MCV 103 H MCH 33 H RDW 16.0 H Seg Neuts % (Manual) Lymphocytes % (Manual) 8.0 L Nucleated RBC % 2.0 H Seg Neutrophils # Man 16.3 H Lymphocytes # (Manual) Monocytes # (Manual) 1.0 H PT INR D-Dimer Heparin Anti-Xa Level 0.79 H POC ABG pH POC ABG pCO2 POC ABG pO2 Sodium 148 H Potassium Chloride Carbon Dioxide 36 H BUN 35 H Creatinine 0.6 L Glucose 160 H POC Glucose Lactic Acid Calcium Phosphorus Total Bilirubin C-Reactive Protein NT-Pro-B Natriuret Pep Total Protein Albumin Urine WBC (Auto) Urine Creatinine 08/04/18 08/04/18 05:24 05:33 WBC RBC Hgb Hct MCV MCH RDW Seg Neuts % (Manual) Lymphocytes % (Manual) Nucleated RBC % Seg Neutrophils # Man Lymphocytes # (Manual) Monocytes # (Manual) PT INR D-Dimer Heparin Anti-Xa Level POC ABG pH POC ABG pCO2 65.7 H POC ABG pO2 63 L Sodium Potassium Chloride Carbon Dioxide BUN Creatinine Glucose POC Glucose 159 H Lactic Acid Calcium Phosphorus Total Bilirubin C-Reactive Protein NT-Pro-B Natriuret Pep Total Protein Albumin Urine WBC (Auto) Urine Creatinine Chest x-ray: image reviewed (right lower lobe infiltrate, right upper lobe atelectasis, ET in good position) Allied health notes reviewed: nursing
[2018-08-04] MEDS ORDERED: DIURIL IV ONE (10:00)
[2018-08-04] MEDS: SOLU-Medrol IV SCH ×2 (10:19→21:18)
[2018-08-04] MEDS: PRAVACHOL PO SCH (10:20)
[2018-08-04] MEDS: PLAVIX PO SCH (10:20)
[2018-08-04] MEDS: SODIUM CHLORIDE FLUSH SYRINGE 10 ML IV SCH ×2 (10:20→21:19)
[2018-08-04] MEDS: VITAMIN B-12 PO SCH (10:21)
[2018-08-04] MEDS: CORDARONE PO SCH ×2 (10:22→21:18)
[2018-08-04] MEDS: MAXIPIME/NS 2 GM/100 ML 2 GM/100 ML BAG IV SCH ×2 (10:24→21:17)
[2018-08-04] MEDS: PEPCID PO SCH ×2 (10:24→21:19)
--- NOTE | 2018-08-04 11:29 | Progress Note ---
Assessment and Plan Cultures: 07/27/2018 tracheal aspirate culture: Pseudomonas aeruginosa, MSSA 07/28/2018 blood culture: 4 out of 4 bottles positive for Streptococcus anginosus 07/28/2018 fungal blood culture: In progress but no growth thus far 07/29/2018 urine culture: No growth 08/01/2018 blood culture: negative thus far A/P: 73-year-old male with COPD, peripheral vascular disease, hypertension, hyperlipidemia, seizure disorder admitted with: 1) Sepsis secondary to Streptococcus anginosus bacteremia: Present on admission. Source is unclear. Patient does have evidence of pneumonia however sputum cultures are not concordant and are growing pseudomonas aeruginosa and MSSA. Reviewed cardiology note, REGAN was reportedly negative. Continue abx, previously received Ceftriaxone and Vancomycin, now Cefepime. 2) Acute respiratory failure secondary to congestive heart failure and pneumonia: Continue IV cefepime to cover both MSSA and Pseudomonas. 3) CARLEE, present on admission, now resolved. 4) Leucocytosis: ?multifactorial. patient on steroids. No new fever. Recs: Continue IV cefepime 2 g every 12 hours, ending 08/08/2018 Monitor WBC Will follow along. Rhea Ro MD [facility] C: [phone] O: [phone] F: [phone] Subjective Date of service: 08/04/18 Principal diagnosis: AFib Interval history: More awake, on the vent. No fever. Denies abdominal pain. Objective - Exam Narrative Exam: Physical Exam: Constitutional: more awake, intubated Head, Ears, Nose: Normocephalic, atraumatic. External ears, nose normal Eyes: Conjunctivae/corneas clear. No icterus. No ptosis. Neck: Supple, no meningeal signs Oral: intubated Cardiovascular: S1, S2 normal Respiratory: Good air entry, clear to auscultation bilaterally, no rhonchi or crackles GI: Soft, non-tender; bowel sounds normal. No peritoneal signs Musculoskeletal: trace pedal edema, b/l UE with edema, no cyanosis. Skin: No rash or abscess Hem/Lymphatic: No palpable cervical or supraclavicular nodes. No lymphangitis Psych: no agitation Neurological: more awake, intubated, exam limited - Constitutional Vitals: Vital Signs Temp Pulse Resp BP Pulse Ox 97.4 F L 85 10 L 137/64 95 08/04/18 08:00 08/04/18 11:00 08/04/18 11:00 08/04/18 11:00 08/04/18 11:00 Temperature -Last 24 Hours Temperature 97.4 F Temperature 99.1 F Temperature 98.5 F Temperature 98.7 F Temperature 98.5 F Temperature 99.6 F - Labs CBC & Chem 7: 08/04/18 05:05 08/04/18 05:05 Labs: Abnormal lab results 08/03/18 08/03/18 08/03/18 Range/Units 12:20 14:33 16:48 WBC (4.5-11.0) K/mm3 RBC (3.65-5.03) M/mm3 Hgb (11.8-15.2) gm/dl Hct (35.5-45.6) % MCV (84-94) fl MCH (28-32) pg RDW (13.2-15.2) % Lymphocytes % (Manual) (13.4-35.0) % Nucleated RBC % (0.0-0.9) % Seg Neutrophils # Man (1.8-7.7) K/mm3 Monocytes # (Manual) (0.0-0.8) K/mm3 Heparin Anti-Xa Level (0.3-0.7) U.I./ml POC ABG pCO2 (35-45) POC ABG pO2 (80-105) Sodium (137-145) mmol/L Carbon Dioxide (22-30) mmol/L BUN (9-20) mg/dL Creatinine (0.8-1.5) mg/dL Glucose (75-100) mg/dL POC Glucose 234 H 247 H (70-105) C-Reactive Protein 2.30 H (0.00-1.30) mg/dL 08/03/18 08/04/18 08/04/18 Range/Units 21:21 01:56 01:58 WBC (4.5-11.0) K/mm3 RBC (3.65-5.03) M/mm3 Hgb (11.8-15.2) gm/dl Hct (35.5-45.6) % MCV (84-94) fl MCH (28-32) pg RDW (13.2-15.2) % Lymphocytes % (Manual) (13.4-35.0) % Nucleated RBC % (0.0-0.9) % Seg Neutrophils # Man (1.8-7.7) K/mm3 Monocytes # (Manual) (0.0-0.8) K/mm3 Heparin Anti-Xa Level 0.79 H (0.3-0.7) U.I./ml POC ABG pCO2 (35-45) POC ABG pO2 (80-105) Sodium (137-145) mmol/L Carbon Dioxide (22-30) mmol/L BUN (9-20) mg/dL Creatinine (0.8-1.5) mg/dL Glucose (75-100) mg/dL POC Glucose 180 H 189 H (70-105) C-Reactive Protein (0.00-1.30) mg/dL 08/04/18 08/04/18 08/04/18 Range/Units 05:05 05:05 05:24 WBC 25.5 H (4.5-11.0) K/mm3 RBC 3.31 L (3.65-5.03) M/mm3 Hgb 10.8 L (11.8-15.2) gm/dl Hct 34.1 L (35.5-45.6) % MCV 103 H (84-94) fl MCH 33 H (28-32) pg RDW 16.0 H (13.2-15.2) % Lymphocytes % (Manual) 8.0 L (13.4-35.0) % Nucleated RBC % 2.0 H (0.0-0.9) % Seg Neutrophils # Man 16.3 H (1.8-7.7) K/mm3 Monocytes # (Manual) 1.0 H (0.0-0.8) K/mm3 Heparin Anti-Xa Level (0.3-0.7) U.I./ml POC ABG pCO2 (35-45) POC ABG pO2 (80-105) Sodium 148 H (137-145) mmol/L Carbon Dioxide 36 H (22-30) mmol/L BUN 35 H (9-20) mg/dL Creatinine 0.6 L (0.8-1.5) mg/dL Glucose 160 H (75-100) mg/dL POC Glucose 159 H (70-105) C-Reactive Protein (0.00-1.30) mg/dL 08/04/18 08/04/18 08/04/18 Range/Units 05:33 08:46 09:12 WBC (4.5-11.0) K/mm3 RBC (3.65-5.03) M/mm3 Hgb (11.8-15.2) gm/dl Hct (35.5-45.6) % MCV (84-94) fl MCH (28-32) pg RDW (13.2-15.2) % Lymphocytes % (Manual) (13.4-35.0) % Nucleated RBC % (0.0-0.9) % Seg Neutrophils # Man (1.8-7.7) K/mm3 Monocytes # (Manual) (0.0-0.8) K/mm3 Heparin Anti-Xa Level 0.76 H (0.3-0.7) U.I./ml POC ABG pCO2 65.7 H (35-45) POC ABG pO2 63 L (80-105) Sodium (137-145) mmol/L Carbon Dioxide (22-30) mmol/L BUN (9-20) mg/dL Creatinine (0.8-1.5) mg/dL Glucose (75-100) mg/dL POC Glucose 140 H (70-105) C-Reactive Protein (0.00-1.30) mg/dL - Imaging and cardiology Chest x-ray: report reviewed, image reviewed (stable findings.)
[2018-08-04] MEDS ORDERED: BUMEX IV ONE (12:30)
--- NOTE | 2018-08-04 14:03 | Progress Note ---
Assessment and Plan Cont present cardiac management. Cont heparin gtt and plan to convert to OAC prior to hospital discharge. Vent weaning per pulmonary. The patient has been seen in conjunction with Dr. Echols who agrees with the assessment and plan of care. - Patient Problems (1) Atrial fibrillation with RVR Current Visit: Yes Status: Acute (2) Acute respiratory failure Current Visit: Yes Status: Acute Qualifiers: Respiratory failure complication: hypoxia Qualified Code(s): J96.01 - Acute respiratory failure with hypoxia (3) COPD (chronic obstructive pulmonary disease) Current Visit: Yes Status: Chronic (4) Pneumonia Current Visit: Yes Status: Acute (5) Nonobstructive atherosclerosis of coronary artery Current Visit: Yes Status: Chronic (6) Hypertension Current Visit: Yes Status: Chronic Qualifiers: Hypertension type: essential hypertension Qualified Code(s): I10 - Essential (primary) hypertension (7) Hyperlipemia Current Visit: Yes Status: Chronic Qualifiers: Hyperlipidemia type: Mixed hyperlipidemia (8) Peripheral vascular disease Current Visit: Yes Status: Chronic (9) CARLEE (acute kidney injury) Current Visit: Yes Status: Acute (10) Lactic acid acidosis Current Visit: Yes Status: Acute Subjective Date of service: 08/04/18 Principal diagnosis: AFib Interval history: pt remains intubated, in SR with freq PACs on telemetry. heparin gtt infusing. Objective Last Vital Signs Temp 97.4 F L 08/04/18 08:00 Pulse 85 08/04/18 11:00 Resp 10 L 08/04/18 11:00 BP 137/64 08/04/18 11:00 Pulse Ox 95 08/04/18 11:00 - Physical Examination General: Other (intubated, sedated) HEENT: Positive: Normocephaly, Mucus Membranes Moist Neck: Positive: neck supple, trachea midline Cardiac: Positive: Reg Rate and Rhythm, S1/S2 Lungs: Positive: Decreased Breath Sounds, Ventilated Respirations Neuro: Positive: Other (intubated, sedated ) Skin: Negative: Rash, Wound Musculoskeletal: No Pain Extremities: Absent: edema - Labs and Meds CBC 08/04/18 Range/Units 05:05 WBC 25.5 H (4.5-11.0) K/mm3 RBC 3.31 L (3.65-5.03) M/mm3 Hgb 10.8 L (11.8-15.2) gm/dl Hct 34.1 L (35.5-45.6) % Plt Count 260 (140-440) K/mm3 Comprehensive Metabolic Panel 08/04/18 Range/Units 05:05 Sodium 148 H (137-145) mmol/L Potassium 4.8 (3.6-5.0) mmol/L Chloride 105.7 (98-107) mmol/L Carbon Dioxide 36 H (22-30) mmol/L BUN 35 H (9-20) mg/dL Creatinine 0.6 L (0.8-1.5) mg/dL Glucose 160 H (75-100) mg/dL Calcium 9.4 (8.4-10.2) mg/dL - Imaging and Cardiology EKG: report reviewed, image reviewed Echo: report reviewed ( 07/27/2018 EF 60-65%, asymmetric septal hypertrophy, mild TR. 05/2017 showed EF 55-60%, grade 1 diastolic dysfunction, mild TR, RVSP 22mmHg. 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 Treat medically. ) - Telemetry EKG Rhythm: Sinus Rhythm - Allied health notes Allied health notes reviewed: nursing
[2018-08-04] MEDS ORDERED: WATER FOR INJ Sterile (PF) 10 ML ONE (16:17)
--- NOTE | 2018-08-04 17:27 | Progress Note ---
Assessment and Plan Assessment and plan: Sepsis; - Blood cultures reveal Streptococcus anginosus. - ID consulted and change antibiotics to cefepime Left lower lobe pneumonia; - Continue antibiotics. - Sputum culture revealed Pseudomonas and staph Acute hypoxemic respiratory failure - Continue on mechanical ventilation and weaning per pulmonary - CXR showed vascular congestion Atrial fibrillation - Continue amiodarone and diltiazem. - Cardiology following. - Check echocardiogram. Acute renal failure - Etiology likely secondary to sepsis/ATN. - Renal ultrasound unremarkable. COPD exacerbation. - Continue bronchodilators/nebulizers. - IV steroids. Hypertension. - Resume antihypertensive medications as needed. Hyperlipidemia. - Peripheral vascular disease. The high probability of a clinically significant, sudden or life threatening deterioration of the [respiratory] system(s) required my full and direct attenti on, intervention and personal management. The aggregate critical care time was [32] minutes. This time is in addition to time spent performing reported procedures but includes the following: [x] Data Review and interpretation [x] Patient assessment and monitoring of vital signs [x] Documentation [x] Medication orders and management History Interval history: 73 YO Male with H/O COPD, PVD, HTN, HLD, Seizure Disorder, Skin Cancer presents to ED for evaluation. Pt states that he has experienced shortness and chest palpitations over the past 2 days with worsening symptoms over the past 1 day. Pt acknowledges decreased exercise tolerance, as well as dyspnea on exertion. Pt was seen and evaluated by his tear down matcher today and was sent to [facility] ED for further care and evaluation. Pt denies fever, chills, leg swelling, calf pain, CP with deep breathing, hemoptysis, Prolonged air/car travel, or immobility, Back Pain, Syncope, Lightheadedness, recent ill contacts, unintentional weight loss, night sweats, or bone pain. Pt seen and evaluated in ED and found to have Atrial Fib with RVR refractory to cardizem drip, but improved with Amiodarone Drip, Acute Hypoxemic Respiratory Failure, SIRS. Pt admitted to ICU. The patient later after admission had further decompensation with respiratory distress. Patient reportedly was satting 60-70% on a nonrebreather and had to be emergently intubated. The patient remains intubated on mechanical ventilation History Interval history: Patient was seen and divided this morning, patient was not able to communicate. Intubated and on mechanical ventilation. His significant other was in the room by the time of examination. Hospitalist Physical - Physical exam Narrative exam: Patient is intubated and on mechanical ventilation. The patient is obese. Vital signs as documented. Head exam is unremarkable. No scleral icterus . Neck is without jugular venous distension, thyromegaly, or carotid bruits. Lungs are clear to auscultation. Cardiac exam reveals regular rate and Rhythm. Abdominal exam reveals normal bowel sounds. Extremities are nonedematous and both femoral and pedal pulses are normal. 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 - Constitutional Vitals: Temp Pulse Resp BP Pulse Ox 99.7 F H 99 H 32 H 154/92 96 08/04/18 16:00 08/04/18 16:00 08/04/18 16:00 08/04/18 16:00 08/04/18 16:00 General appearance: Present: no acute distress, other (intubated on mechanical ventilation) Results - Labs CBC & Chem 7: 08/04/18 05:05 08/04/18 05:05 Labs: Laboratory Last Values WBC 25.5 K/mm3 (4.5-11.0) H 08/04/18 05:05 RBC 3.31 M/mm3 (3.65-5.03) L 08/04/18 05:05 Hgb 10.8 gm/dl (11.8-15.2) L 08/04/18 05:05 Hct 34.1 % (35.5-45.6) L 08/04/18 05:05 MCV 103 fl (84-94) H 08/04/18 05:05 MCH 33 pg (28-32) H 08/04/18 05:05 MCHC 32 % (32-34) 08/04/18 05:05 RDW 16.0 % (13.2-15.2) H 08/04/18 05:05 Plt Count 260 K/mm3 (140-440) 08/04/18 05:05 Add Manual Diff Complete 08/04/18 05:05 Total Counted 100 08/04/18 05:05 Seg Neutrophils % [place] 08/04/18 05:05 Seg Neuts % (Manual) 64.0 % (40.0-70.0) 08/04/18 05:05 Band Neutrophils % 24.0 % 08/04/18 05:05 Lymphocytes % (Manual) 8.0 % (13.4-35.0) L 08/04/18 05:05 Reactive Lymphs % (Man) 0 % 08/04/18 05:05 Monocytes % (Manual) 4.0 % (0.0-7.3) 08/04/18 05:05 Eosinophils % (Manual) 0 % (0.0-4.3) 08/04/18 05:05 Basophils % (Manual) 0 % (0.0-1.8) 08/04/18 05:05 Metamyelocytes % 0 % 08/04/18 05:05 Myelocytes % 0 % 08/04/18 05:05 Promyelocytes % 0 % 08/04/18 05:05 Blast Cells % 0 % 08/04/18 05:05 Nucleated RBC % 2.0 % (0.0-0.9) H 08/04/18 05:05 Seg Neutrophils # Man 16.3 K/mm3 (1.8-7.7) H 08/04/18 05:05 Band Neutrophils # 6.1 K/mm3 08/04/18 05:05 Lymphocytes # (Manual) 2.0 K/mm3 (1.2-5.4) 08/04/18 05:05 Abs React Lymphs (Man) 0.0 K/mm3 08/04/18 05:05 Monocytes # (Manual) 1.0 K/mm3 (0.0-0.8) H 08/04/18 05:05 Eosinophils # (Manual) 0.0 K/mm3 (0.0-0.4) 08/04/18 05:05 Basophils # (Manual) 0.0 K/mm3 (0.0-0.1) 08/04/18 05:05 Metamyelocytes # 0.0 K/mm3 08/04/18 05:05 Myelocytes # 0.0 K/mm3 08/04/18 05:05 Promyelocytes # 0.0 K/mm3 08/04/18 05:05 Blast Cells # 0.0 K/mm3 08/04/18 05:05 Pathologist Review 07/28/18 06:01 WBC Morphology Not Reportable 08/04/18 05:05 Hypersegmented Neuts Not Reportable 08/04/18 05:05 Hyposegmented Neuts Not Reportable 08/04/18 05:05 Hypogranular Neuts Not Reportable 08/04/18 05:05 Smudge Cells Few 08/04/18 05:05 Toxic Granulation Not Reportable 08/04/18 05:05 Toxic Vacuolation Not Reportable 08/04/18 05:05 Dohle Bodies Not Reportable 08/04/18 05:05 Pelger-Huet Anomaly Not Reportable 08/04/18 05:05 Janiya Rods Not Reportable 08/04/18 05:05 Platelet Estimate Appears normal 08/04/18 05:05 Clumped Platelets Not Reportable 08/04/18 05:05 Plt Clumps, EDTA Not Reportable 08/04/18 05:05 Large Platelets Not Reportable 08/04/18 05:05 Giant Platelets Not Reportable 08/04/18 05:05 Platelet Satelliting Not Reportable 08/04/18 05:05 Plt Morphology Comment Not Reportable 08/04/18 05:05 RBC Morphology Not Reportable 08/04/18 05:05 Dimorphic RBCs Not Reportable 08/04/18 05:05 Polychromasia Few 08/04/18 05:05 Hypochromasia 1+ 08/04/18 05:05 Poikilocytosis Not Reportable 08/04/18 05:05 Anisocytosis 1+ 08/04/18 05:05 Microcytosis Not Reportable 08/04/18 05:05 Macrocytosis Not Reportable 08/04/18 05:05 Spherocytes Not Reportable 08/04/18 05:05 Pappenheimer Bodies Not Reportable 08/04/18 05:05 Sickle Cells Not Reportable 08/04/18 05:05 Target Cells Not Reportable 08/04/18 05:05 Tear Drop Cells Not Reportable 08/04/18 05:05 Ovalocytes Not Reportable 08/04/18 05:05 Helmet Cells Not Reportable 08/04/18 05:05 Lr-Ezel Bodies Not Reportable 08/04/18 05:05 [place] Rings Not Reportable 08/04/18 05:05 [place] Cells Not Reportable 08/04/18 05:05 Bite Cells Not Reportable 08/04/18 05:05 Crenated Cell Not Reportable 08/04/18 05:05 Elliptocytes Not Reportable 08/04/18 05:05 Acanthocytes (Spur) Not Reportable 08/04/18 05:05 Rouleaux Not Reportable 08/04/18 05:05 Hemoglobin C Crystals Not Reportable 08/04/18 05:05 Schistocytes Not Reportable 08/04/18 05:05 Malaria parasites Not Reportable 08/04/18 05:05 Jigar Bodies Not Reportable 08/04/18 05:05 Hem Pathologist Commnt No 08/04/18 05:05 PT 16.0 Sec. (12.2-14.9) H 07/27/18 17:09 INR 1.24 (0.87-1.13) H 07/27/18 17:09 APTT 31.9 Sec. (24.2-36.6) 07/27/18 17:09 D-Dimer 798.17 ng/mlDDU (0-234) H 07/27/18 15:52 Heparin Anti-Xa Level 0.76 U.I./ml (0.3-0.7) H 08/04/18 08:46 POC ABG pH 7.422 (7.35-7.45) 08/04/18 05:33 POC ABG pCO2 65.7 (35-45) H 08/04/18 05:33 POC ABG pO2 63 (80-105) L 08/04/18 05:33 POC ABG HCO3 42.8 08/04/18 05:33 POC ABG Total CO2 45 08/04/18 05:33 POC ABG O2 Sat 91 08/04/18 05:33 POC ABG Base Excess 18 08/04/18 05:33 FiO2 45 % 08/04/18 05:33 Sodium 148 mmol/L (137-145) H 08/04/18 05:05 Potassium 4.8 mmol/L (3.6-5.0) 08/04/18 05:05 Chloride 105.7 mmol/L (98-107) 08/04/18 05:05 Carbon Dioxide 36 mmol/L (22-30) H 08/04/18 05:05 Anion Gap 11 mmol/L 08/04/18 05:05 BUN 35 mg/dL (9-20) H 08/04/18 05:05 Creatinine 0.6 mg/dL (0.8-1.5) L 08/04/18 05:05 Estimated GFR > 60 ml/min 08/04/18 05:05 BUN/Creatinine Ratio 58 % 08/04/18 05:05 Glucose 160 mg/dL (75-100) H 08/04/18 05:05 POC Glucose 267 (70-105) H 08/04/18 15:38 Lactic Acid 1.30 mmol/L (0.7-2.0) 08/03/18 16:48 Calcium 9.4 mg/dL (8.4-10.2) 08/04/18 05:05 Phosphorus 3.60 mg/dL (2.5-4.5) 08/02/18 04:45 Magnesium 2.20 mg/dL (1.7-2.3) 07/31/18 03:14 Total Bilirubin 1.30 mg/dL (0.1-1.2) H 07/27/18 12:59 AST 15 units/L (5-40) 07/27/18 12:59 ALT 16 units/L (7-56) 07/27/18 12:59 Alkaline Phosphatase 62 units/L (35-129) 07/27/18 12:59 Troponin T < 0.010 ng/mL (0.00-0.029) 07/27/18 12:59 C-Reactive Protein 2.30 mg/dL (0.00-1.30) H 08/03/18 16:48 NT-Pro-B Natriuret Pep 3913 pg/mL (0-900) H 07/27/18 12:59 Total Protein 6.2 g/dL (6.3-8.2) L 07/27/18 12:59 Albumin 3.6 g/dL (3.9-5) L 07/27/18 12:59 Albumin/Globulin Ratio 1.4 % 07/27/18 12:59 Triglycerides 142 mg/dL (2-149) 08/01/18 04:13 TSH 1.180 mlU/mL (0.270-4.200) 07/27/18 15:52 Free T4 1.28 ng/dL (0.76-1.46) 07/27/18 15:52 Urine Color Yellow (Yellow) 07/29/18 09:24 Urine Turbidity Cloudy (Clear) 07/29/18 09:24 Urine pH 5.0 (5.0-7.0) 07/29/18 09:24 Ur Specific Christopher 1.017 (1.003-1.030) 07/29/18 09:24 Urine Protein 30 mg/dl mg/dL (Negative) 07/29/18 09:24 Urine Glucose (UA) Neg mg/dL (Negative) 07/29/18 09:24 Urine Ketones Neg mg/dL (Negative) 07/29/18 09:24 Urine Blood Mod (Negative) 07/29/18 09:24 Urine Nitrite Neg (Negative) 07/29/18 09:24 Urine Bilirubin Neg (Negative) 07/29/18 09:24 Urine Urobilinogen < 2.0 mg/dL (<2.0) 07/29/18 09:24 Ur Leukocyte Esterase Mod (Negative) 07/29/18 09:24 Urine WBC (Auto) 29.0 /HPF (0.0-6.0) H 07/29/18 09:24 Urine RBC (Auto) 7.0 /HPF (0.0-6.0) 07/29/18 09:24 U Epithel Cells (Auto) 2.0 /HPF (0-13.0) 07/29/18 09:24 Urine Bacteria (Auto) 1+ /HPF (Negative) 07/29/18 09:24 Urine Mucus Few /HPF 07/29/18 09:24 Urine Yeast (Budding) 1+ /HPF 07/29/18 09:24 Urine Creatinine 72.3 mg/dL (0.1-20.0) H 07/29/18 09:24 Urine Sodium 12 mmol/L 07/29/18 09:24 Random Vancomycin 9.2 ug/mL (0-40.0) 07/29/18 04:21 Nutrition/Malnutrition Assess - Dietary Evaluation Nutrition/Malnutrition Findings: Nutrition Notes Start: 07/28/18 10:54 Freq: Status: Active Protocol: Document 08/04/18 10:13 TW (Rec: 08/04/18 10:46 TW [id number]) Co-Sign 08/04/18 10:13 LP Nutrition Notes Initial or Follow up Reassessment Current Diagnoses Acute Kidney Injury COPD Sepsis Hypertension Heart Failure Respiratory Failure Other Pertinent Diagnosis Hx of Skin Cancer Current Diet Nepro at 50ml/hr Labs/Tests BUN: 35 Cr: 0.6 Medications Propofol at 2.53mL/hr (67 lipid kcal) Solumedrol Height 5 ft 8 in Weight 87.6 kg [place] Body Weight (lbs) 154.0 BMI 29.3 Weight change and time frame Wt. change noted. Subjective/Other Information Nepro infusing at goal rate of 50mL/hr. Per RN, pt. tolerating TF well. Percent of energy/protein needs met: 100%/69% Burn Absent Trauma Absent #1 Nutrition Diagnoses Inadequate oral intake Diagnosis Progress(for reassessment Continues documentation) Is patient on ventilator? Yes Is Patient Ambulatory and/or Out of Bed No REE-([place]-confined to bed) 9050.958 Calculation Used for Recommendations [place] Additional Notes protein (2g/kg IBW): 140g daily fluid: 1mL/kcal Nutrition Intervention Change Diet Order: Continue TF Nutrition Support: Nepro at 50mL/hr 250 mL free water flush q4h or per MD. Kcal 2,160 Protein (gm) 97 Fluid (mL) 872 Goal #1 TF tolerance and rate Goal #2 Meet at least 80% of kcal needs and 80-100% of protein needs. Anticipated Discharge Needs: unable to determine at this time Follow-Up By: 08/10/18 Additional Comments F/U for stable TF
[2018-08-04] MEDS: LANTUS SUB-Q SCH (21:20)
[2018-08-04] MEDS: DIPRIVAN 10 MG/ML 1,000 MG/100 ML BOTTLE IV SCH (23:39)
[2018-08-05] MEDS ORDERED: WATER FOR IRRIG STERILE IR ONE
[2018-08-05] MEDS: CARDIZEM PO SCH ×7 (00:06→22:20)
[2018-08-05] MEDS: HEPARIN/ 0.45% NACL-25,000 UNIT/500 ML 25,000 UNIT/500 ML BAG IV SCH (01:56)
[2018-08-05] MEDS: HumaLOG SUB-Q SCH ×5 (02:30→18:37)
[2018-08-05] MEDS: PULMICORT IH SCH ×2 (08:56→19:53)
[2018-08-05] MEDS: BROVANA NEBU IH SCH ×2 (08:56→19:53)
--- NOTE | 2018-08-05 09:14 | Progress Note ---
Assessment and Plan Acute hypoxemic respiratory failure, on mechanical ventilatory support. Atrial fibrillation with rapid ventricular response, now sinus. 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 Elevated D-dimer. Leukocytosis, worsening Hematuria. Sepsis Chronic obstructive lung disease-acute exacerbation. Hypertension. Peripheral vascular disease. Mixed acidosis, respiratory and metabolic. Acute kidney injury. Lactic acidosis. Elevated BNP level of 3913. History of hypertension. History of arthritis. - Daily SAT and SBTas tolerated - VAP bundle addressed - titrate sedation for RASS 0 to -1 -Avoid delirium - continue enteric nutrition as tolerated - continue supplemental oxygen to keep sats > 90% - aspiration precautions - continue bronchodilators with pulmonary hygiene per RT -Therapeutic anticoagulation, will hold in view of hematuria Urology consult ordered, get bladder scan. Patient appears to have urinary retention on clinical exam -Stress ulcer prophylaxis -Antibiotics to complete course -Mobility for pressure ulcer prevention -PT/OT to treat Discussed in ICU-IDT rounds FULL CODE CONDITION: CRITICAL PROGNOSIS: GUARDED The high probability of a clinically significant, sudden or life-threatening deterioration of the [respiratory, cardiovascular, renal] system(s) required my full and direct attention, intervention and personal management. The aggregate critical care time was [35] minutes without overlap. Time includes spent on; [x] Data Review and interpretation [x] Patient assessment and monitoring of vital signs [x] Documentation [x] Medication orders and management Subjective Date of service: 08/05/18 Principal diagnosis: AFib Interval history: Patient is seen today for: Acute hypoxemic respiratory failure on MVS; Atrial fibrillation with RVR; Possible congestive heart failure with an acute exacerbation; History of deep venous thrombosis; Elevated D-dimer. Seen and examined at bedside; 24hour events reviewed; vitals, labs, medications, chart notes reviewed; nursing and respiratory care staff consulted; no adverse overnight events reported to me; remains on MVS;currently in sinus rhythm; no emesis or overt aspiration and tolerating tube feeds; hematuria today. More awak e and alert. Objective Vital Signs - 12hr 08/04/18 08/04/18 08/04/18 21:30 22:00 22:18 Temperature Pulse Rate 81 77 85 Pulse Rate [ From Monitor] Respiratory 31 H 28 H Rate Respiratory 15 Rate [Head] Blood Pressure 142/64 145/66 O2 Sat by Pulse 94 94 Oximetry 08/04/18 08/04/18 08/04/18 22:30 23:00 23:30 Temperature Pulse Rate 79 79 83 Pulse Rate [ From Monitor] Respiratory 26 H 28 H 29 H Rate Respiratory Rate [Head] Blood Pressure 123/53 123/60 150/64 O2 Sat by Pulse 94 95 94 Oximetry 08/04/18 08/05/18 08/05/18 23:49 00:00 00:01 Temperature 98.5 F Pulse Rate 83 82 80 Pulse Rate [ 75 From Monitor] Respiratory 24 Rate Respiratory Rate [Head] Blood Pressure 137/64 O2 Sat by Pulse 95 95 Oximetry 08/05/18 08/05/18 08/05/18 00:06 00:30 01:00 Temperature Pulse Rate 80 76 75 Pulse Rate [ From Monitor] Respiratory 21 26 H Rate Respiratory Rate [Head] Blood Pressure 137/64 124/60 137/64 O2 Sat by Pulse 96 93 Oximetry 08/05/18 08/05/18 08/05/18 01:31 02:00 02:30 Temperature Pulse Rate 73 78 76 Pulse Rate [ From Monitor] Respiratory 24 26 H 29 H Rate Respiratory Rate [Head] Blood Pressure 137/64 137/64 137/66 O2 Sat by Pulse 96 93 93 Oximetry 08/05/18 08/05/18 08/05/18 03:00 03:30 04:00 Temperature 98.9 F Pulse Rate 75 73 73 Pulse Rate [ 79 From Monitor] Respiratory 28 H 25 H 23 Rate Respiratory Rate [Head] Blood Pressure 125/67 122/60 124/64 O2 Sat by Pulse 93 91 98 Oximetry 08/05/18 08/05/18 08/05/18 04:30 04:50 05:00 Temperature Pulse Rate 75 79 88 Pulse Rate [ From Monitor] Respiratory 25 H 30 H Rate Respiratory Rate [Head] Blood Pressure 111/69 111/69 136/67 O2 Sat by Pulse 89 95 97 Oximetry 08/05/18 08/05/18 08/05/18 05:22 05:30 06:00 Temperature Pulse Rate 86 82 70 Pulse Rate [ From Monitor] Respiratory 30 H 24 Rate Respiratory Rate [Head] Blood Pressure 136/67 147/70 117/61 O2 Sat by Pulse 93 96 Oximetry 08/05/18 08:00 Temperature Pulse Rate 71 Pulse Rate [ From Monitor] Respiratory Rate Respiratory Rate [Head] Blood Pressure 135/64 O2 Sat by Pulse 95 Oximetry Constitutional: appears uncomfortable, other (elderly looking CM, normocephalic and atraumatic with mildly increased respiratory effort) Eyes: non-icteric ENT: oropharynx moist, other (ETT 23 cm SUHAS) Neck: supple, no lymphadenopathy, no JVD, other (No thyromegaly) Effort: mildly labored Ascultation: Bilateral: diminished breath sounds, rhonchi Percussion: Bilateral: not dull Cardiovascular: irregular rhythm, other (+ systolic murmur) Gastrointestinal: hypoactive bowel sounds, soft, non-tender, non-distended, other (No palpable HSM) Integumentary: rash, other (upper extremity edema) Extremities: no cyanosis, pink and warm, pulses normal, no ischemia or petechiae Neurologic: non-focal exam (grossly), pupils equal and round, other (moves all extemities) Psychiatric: mood appropriate, affect normal CBC and BMP: 08/04/18 05:05 08/04/18 05:05 ABG, PT/INR, D-dimer: ABG POC ABG pH 7.506 (7.35-7.45) H 08/05/18 04:55 POC ABG pCO2 56.0 (35-45) H 08/05/18 04:55 POC ABG pO2 63 (80-105) L 08/05/18 04:55 POC ABG HCO3 44.3 08/05/18 04:55 POC ABG Total CO2 46 08/05/18 04:55 POC ABG O2 Sat 93 08/05/18 04:55 PT/INR, D-dimer PT 16.0 Sec. (12.2-14.9) H 07/27/18 17:09 INR 1.24 (0.87-1.13) H 07/27/18 17:09 D-Dimer 798.17 ng/mlDDU (0-234) H 07/27/18 15:52 Abnormal lab findings: Abnormal Labs 07/27/18 07/27/18 07/27/18 12:59 12:59 12:59 WBC 15.8 H RBC Hgb Hct MCV 104 H MCH 34 H RDW 16.3 H Seg Neuts % (Manual) 88.0 H Lymphocytes % (Manual) 3.0 L Nucleated RBC % Seg Neutrophils # Man 13.9 H Lymphocytes # (Manual) 0.5 L Monocytes # (Manual) PT 17.0 H INR 1.34 H D-Dimer Heparin Anti-Xa Level POC ABG pH POC ABG pCO2 POC ABG pO2 Sodium Potassium Chloride Carbon Dioxide 21 L BUN 38 H Creatinine 1.6 H Glucose POC Glucose Lactic Acid Calcium Phosphorus Total Bilirubin 1.30 H C-Reactive Protein NT-Pro-B Natriuret Pep 3913 H Total Protein 6.2 L Albumin 3.6 L Urine WBC (Auto) Urine Creatinine 07/27/18 07/27/18 07/27/18 15:52 16:12 17:09 WBC RBC Hgb Hct MCV MCH RDW Seg Neuts % (Manual) Lymphocytes % (Manual) Nucleated RBC % Seg Neutrophils # Man Lymphocytes # (Manual) Monocytes # (Manual) PT 16.0 H INR 1.24 H D-Dimer 798.17 H Heparin Anti-Xa Level POC ABG pH POC ABG pCO2 POC ABG pO2 Sodium Potassium Chloride Carbon Dioxide BUN Creatinine Glucose POC Glucose Lactic Acid 5.00 H* Calcium Phosphorus Total Bilirubin C-Reactive Protein NT-Pro-B Natriuret Pep Total Protein Albumin Urine WBC (Auto) Urine Creatinine 07/27/18 07/27/18 07/27/18 17:59 18:07 21:31 WBC RBC Hgb Hct MCV MCH RDW Seg Neuts % (Manual) Lymphocytes % (Manual) Nucleated RBC % Seg Neutrophils # Man Lymphocytes # (Manual) Monocytes # (Manual) PT INR D-Dimer Heparin Anti-Xa Level POC ABG pH 7.344 L POC ABG pCO2 POC ABG pO2 36 L Sodium Potassium Chloride Carbon Dioxide BUN Creatinine Glucose POC Glucose Lactic Acid 5.20 H* 5.00 H* Calcium Phosphorus Total Bilirubin C-Reactive Protein NT-Pro-B Natriuret Pep Total Protein Albumin Urine WBC (Auto) Urine Creatinine 07/27/18 07/27/18 07/27/18 21:57 22:42 23:26 WBC RBC Hgb Hct MCV MCH RDW Seg Neuts % (Manual) Lymphocytes % (Manual) Nucleated RBC % Seg Neutrophils # Man Lymphocytes # (Manual) Monocytes # (Manual) PT INR D-Dimer Heparin Anti-Xa Level POC ABG pH 7.199 L POC ABG pCO2 62.0 H POC ABG pO2 Sodium Potassium Chloride Carbon Dioxide BUN Creatinine Glucose POC Glucose Lactic Acid 4.70 H* 5.00 H* Calcium Phosphorus Total Bilirubin C-Reactive Protein NT-Pro-B Natriuret Pep Total Protein Albumin Urine WBC (Auto) Urine Creatinine 07/28/18 07/28/18 07/28/18 00:45 05:40 05:58 WBC RBC Hgb Hct MCV MCH RDW Seg Neuts % (Manual) Lymphocytes % (Manual) Nucleated RBC % Seg Neutrophils # Man Lymphocytes # (Manual) Monocytes # (Manual) PT INR D-Dimer Heparin Anti-Xa Level 0.11 L POC ABG pH 7.186 L POC ABG pCO2 60.1 H POC ABG pO2 68 L Sodium Potassium Chloride Carbon Dioxide BUN Creatinine Glucose POC Glucose Lactic Acid 4.70 H* Calcium Phosphorus Total Bilirubin C-Reactive Protein NT-Pro-B Natriuret Pep Total Protein Albumin Urine WBC (Auto) Urine Creatinine 07/28/18 07/28/18 07/28/18 06:01 06:01 07:19 WBC 12.5 H RBC 3.51 L Hgb 11.5 L Hct MCV 104 H MCH 33 H RDW 16.6 H Seg Neuts % (Manual) Lymphocytes % (Manual) Nucleated RBC % Seg Neutrophils # Man Lymphocytes # (Manual) Monocytes # (Manual) PT INR D-Dimer Heparin Anti-Xa Level 0.14 L POC ABG pH POC ABG pCO2 POC ABG pO2 Sodium 135 L Potassium 5.1 H Chloride 95.0 L Carbon Dioxide 21 L BUN 54 H Creatinine 2.6 H D Glucose POC Glucose Lactic Acid Calcium Phosphorus Total Bilirubin C-Reactive Protein NT-Pro-B Natriuret Pep Total Protein Albumin Urine WBC (Auto) Urine Creatinine 07/28/18 07/28/18 07/28/18 07:19 09:20 11:06 WBC RBC Hgb Hct MCV MCH RDW Seg Neuts % (Manual) Lymphocytes % (Manual) Nucleated RBC % Seg Neutrophils # Man Lymphocytes # (Manual) Monocytes # (Manual) PT INR D-Dimer Heparin Anti-Xa Level POC ABG pH 7.266 L POC ABG pCO2 49.7 H POC ABG pO2 74 L Sodium Potassium Chloride Carbon Dioxide BUN Creatinine Glucose POC Glucose Lactic Acid 4.00 H* 3.90 H* Calcium Phosphorus Total Bilirubin C-Reactive Protein NT-Pro-B Natriuret Pep Total Protein Albumin Urine WBC (Auto) Urine Creatinine 07/28/18 07/28/18 07/28/18 15:06 20:45 23:36 WBC RBC Hgb Hct MCV MCH RDW Seg Neuts % (Manual) Lymphocytes % (Manual) Nucleated RBC % Seg Neutrophils # Man Lymphocytes # (Manual) Monocytes # (Manual) PT INR D-Dimer Heparin Anti-Xa Level 0.15 L POC ABG pH POC ABG pCO2 POC ABG pO2 Sodium 134 L Potassium 5.2 H Chloride Carbon Dioxide BUN 58 H Creatinine 2.1 H Glucose 110 H POC Glucose 125 H Lactic Acid Calcium Phosphorus Total Bilirubin C-Reactive Protein NT-Pro-B Natriuret Pep Total Protein Albumin Urine WBC (Auto) Urine Creatinine 07/29/18 07/29/18 07/29/18 01:12 04:21 04:21 WBC RBC 3.21 L Hgb 10.8 L Hct 33.0 L MCV 103 H MCH 34 H RDW 16.4 H Seg Neuts % (Manual) Lymphocytes % (Manual) 11.0 L Nucleated RBC % Seg Neutrophils # Man Lymphocytes # (Manual) 1.0 L Monocytes # (Manual) PT INR D-Dimer Heparin Anti-Xa Level 0.21 L POC ABG pH POC ABG pCO2 POC ABG pO2 Sodium Potassium Chloride Carbon Dioxide BUN 48 H Creatinine 1.6 H Glucose 166 H POC Glucose Lactic Acid Calcium Phosphorus Total Bilirubin C-Reactive Protein NT-Pro-B Natriuret Pep Total Protein Albumin Urine WBC (Auto) Urine Creatinine 07/29/18 07/29/18 07/29/18 05:19 08:16 09:24 WBC RBC Hgb Hct MCV MCH RDW Seg Neuts % (Manual) Lymphocytes % (Manual) Nucleated RBC % Seg Neutrophils # Man Lymphocytes # (Manual) Monocytes # (Manual) PT INR D-Dimer Heparin Anti-Xa Level 0.25 L POC ABG pH POC ABG pCO2 POC ABG pO2 Sodium Potassium Chloride Carbon Dioxide BUN Creatinine Glucose POC Glucose 181 H Lactic Acid Calcium Phosphorus Total Bilirubin C-Reactive Protein NT-Pro-B Natriuret Pep Total Protein Albumin Urine WBC (Auto) 29.0 H Urine Creatinine 07/29/18 07/29/18 07/29/18 09:24 10:00 15:03 WBC RBC Hgb Hct MCV MCH RDW Seg Neuts % (Manual) Lymphocytes % (Manual) Nucleated RBC % Seg Neutrophils # Man Lymphocytes # (Manual) Monocytes # (Manual) PT INR D-Dimer Heparin Anti-Xa Level POC ABG pH POC ABG pCO2 POC ABG pO2 Sodium Potassium Chloride Carbon Dioxide BUN Creatinine Glucose POC Glucose 195 H 167 H Lactic Acid Calcium Phosphorus Total Bilirubin C-Reactive Protein NT-Pro-B Natriuret Pep Total Protein Albumin Urine WBC (Auto) Urine Creatinine 72.3 H 07/29/18 07/29/18 07/30/18 17:51 21:32 01:38 WBC RBC Hgb Hct MCV MCH RDW Seg Neuts % (Manual) Lymphocytes % (Manual) Nucleated RBC % Seg Neutrophils # Man Lymphocytes # (Manual) Monocytes # (Manual) PT INR D-Dimer Heparin Anti-Xa Level POC ABG pH POC ABG pCO2 POC ABG pO2 Sodium Potassium Chloride Carbon Dioxide BUN Creatinine Glucose POC Glucose 167 H 217 H 194 H Lactic Acid Calcium Phosphorus Total Bilirubin C-Reactive Protein NT-Pro-B Natriuret Pep Total Protein Albumin Urine WBC (Auto) Urine Creatinine 07/30/18 07/30/18 07/30/18 03:21 05:13 10:18 WBC RBC Hgb Hct MCV MCH RDW Seg Neuts % (Manual) Lymphocytes % (Manual) Nucleated RBC % Seg Neutrophils # Man Lymphocytes # (Manual) Monocytes # (Manual) PT INR D-Dimer Heparin Anti-Xa Level POC ABG pH POC ABG pCO2 50.3 H POC ABG pO2 78 L Sodium Potassium Chloride Carbon Dioxide BUN 41 H Creatinine Glucose 202 H POC Glucose 151 H Lactic Acid Calcium Phosphorus Total Bilirubin C-Reactive Protein NT-Pro-B Natriuret Pep Total Protein Albumin Urine WBC (Auto) Urine Creatinine 07/30/18 07/30/18 07/30/18 11:29 16:28 18:12 WBC RBC Hgb Hct MCV MCH RDW Seg Neuts % (Manual) Lymphocytes % (Manual) Nucleated RBC % Seg Neutrophils # Man Lymphocytes # (Manual) Monocytes # (Manual) PT INR D-Dimer Heparin Anti-Xa Level POC ABG pH 7.326 L POC ABG pCO2 53.2 H POC ABG pO2 70 L Sodium Potassium Chloride Carbon Dioxide BUN Creatinine Glucose POC Glucose 247 H 212 H Lactic Acid Calcium Phosphorus Total Bilirubin C-Reactive Protein NT-Pro-B Natriuret Pep Total Protein Albumin Urine WBC (Auto) Urine Creatinine 07/30/18 07/30/18 07/31/18 20:08 21:52 01:59 WBC RBC Hgb Hct MCV MCH RDW Seg Neuts % (Manual) Lymphocytes % (Manual) Nucleated RBC % Seg Neutrophils # Man Lymphocytes # (Manual) Monocytes # (Manual) PT INR D-Dimer Heparin Anti-Xa Level POC ABG pH POC ABG pCO2 POC ABG pO2 Sodium Potassium Chloride Carbon Dioxide BUN Creatinine Glucose POC Glucose 205 H 215 H 242 H Lactic Acid Calcium Phosphorus Total Bilirubin C-Reactive Protein NT-Pro-B Natriuret Pep Total Protein Albumin Urine WBC (Auto) Urine Creatinine 07/31/18 07/31/18 07/31/18 03:14 03:14 04:55 WBC RBC Hgb 10.6 L Hct 33.2 L MCV MCH RDW Seg Neuts % (Manual) Lymphocytes % (Manual) Nucleated RBC % Seg Neutrophils # Man Lymphocytes # (Manual) Monocytes # (Manual) PT INR D-Dimer Heparin Anti-Xa Level POC ABG pH 7.331 L POC ABG pCO2 67.1 H POC ABG pO2 Sodium Potassium Chloride Carbon Dioxide BUN 36 H Creatinine 0.7 L Glucose 242 H POC Glucose Lactic Acid Calcium 10.3 H Phosphorus 2.30 L Total Bilirubin C-Reactive Protein NT-Pro-B Natriuret Pep Total Protein Albumin Urine WBC (Auto) Urine Creatinine 07/31/18 07/31/18 07/31/18 05:37 10:08 14:07 WBC RBC Hgb Hct MCV MCH RDW Seg Neuts % (Manual) Lymphocytes % (Manual) Nucleated RBC % Seg Neutrophils # Man Lymphocytes # (Manual) Monocytes # (Manual) PT INR D-Dimer Heparin Anti-Xa Level POC ABG pH POC ABG pCO2 POC ABG pO2 Sodium Potassium Chloride Carbon Dioxide BUN Creatinine Glucose POC Glucose 193 H 247 H 225 H Lactic Acid Calcium Phosphorus Total Bilirubin C-Reactive Protein NT-Pro-B Natriuret Pep Total Protein Albumin Urine WBC (Auto) Urine Creatinine 07/31/18 07/31/18 08/01/18 18:12 21:34 02:00 WBC RBC Hgb Hct MCV MCH RDW Seg Neuts % (Manual) Lymphocytes % (Manual) Nucleated RBC % Seg Neutrophils # Man Lymphocytes # (Manual) Monocytes # (Manual) PT INR D-Dimer Heparin Anti-Xa Level POC ABG pH POC ABG pCO2 POC ABG pO2 Sodium Potassium Chloride Carbon Dioxide BUN Creatinine Glucose POC Glucose 197 H 204 H 239 H Lactic Acid Calcium Phosphorus Total Bilirubin C-Reactive Protein NT-Pro-B Natriuret Pep Total Protein Albumin Urine WBC (Auto) Urine Creatinine 08/01/18 08/01/18 08/01/18 04:13 04:37 05:29 WBC RBC Hgb Hct MCV MCH RDW Seg Neuts % (Manual) Lymphocytes % (Manual) Nucleated RBC % Seg Neutrophils # Man Lymphocytes # (Manual) Monocytes # (Manual) PT INR D-Dimer Heparin Anti-Xa Level POC ABG pH 7.296 L POC ABG pCO2 81.9 H POC ABG pO2 190 H Sodium 150 H D Potassium Chloride Carbon Dioxide 37 H D BUN 37 H Creatinine 0.6 L Glucose 223 H POC Glucose 219 H Lactic Acid Calcium Phosphorus Total Bilirubin C-Reactive Protein NT-Pro-B Natriuret Pep Total Protein Albumin Urine WBC (Auto) Urine Creatinine 08/01/18 08/01/18 08/01/18 09:28 11:00 17:36 WBC RBC Hgb Hct MCV MCH RDW Seg Neuts % (Manual) Lymphocytes % (Manual) Nucleated RBC % Seg Neutrophils # Man Lymphocytes # (Manual) Monocytes # (Manual) PT INR D-Dimer Heparin Anti-Xa Level POC ABG pH POC ABG pCO2 61.2 H POC ABG pO2 69 L Sodium Potassium Chloride Carbon Dioxide BUN Creatinine Glucose POC Glucose 185 H 234 H Lactic Acid Calcium Phosphorus Total Bilirubin C-Reactive Protein NT-Pro-B Natriuret Pep Total Protein Albumin Urine WBC (Auto) Urine Creatinine 08/01/18 08/02/18 08/02/18 21:54 00:08 00:44 WBC RBC Hgb Hct MCV MCH RDW Seg Neuts % (Manual) Lymphocytes % (Manual) Nucleated RBC % Seg Neutrophils # Man Lymphocytes # (Manual) Monocytes # (Manual) PT INR D-Dimer Heparin Anti-Xa Level 0.77 H POC ABG pH POC ABG pCO2 66.4 H POC ABG pO2 64 L Sodium Potassium Chloride Carbon Dioxide BUN Creatinine Glucose POC Glucose 242 H Lactic Acid Calcium Phosphorus Total Bilirubin C-Reactive Protein NT-Pro-B Natriuret Pep Total Protein Albumin Urine WBC (Auto) Urine Creatinine 08/02/18 08/02/18 08/02/18 02:46 04:45 04:45 WBC RBC Hgb 10.7 L Hct 33.7 L MCV MCH RDW Seg Neuts % (Manual) Lymphocytes % (Manual) Nucleated RBC % Seg Neutrophils # Man Lymphocytes # (Manual) Monocytes # (Manual) PT INR D-Dimer Heparin Anti-Xa Level POC ABG pH POC ABG pCO2 POC ABG pO2 Sodium 152 H Potassium Chloride 108.1 H Carbon Dioxide 39 H BUN 38 H Creatinine 0.6 L Glucose 226 H POC Glucose 206 H Lactic Acid Calcium Phosphorus Total Bilirubin C-Reactive Protein NT-Pro-B Natriuret Pep Total Protein Albumin Urine WBC (Auto) Urine Creatinine 08/02/18 08/02/18 08/02/18 05:31 09:46 14:23 WBC RBC Hgb Hct MCV MCH RDW Seg Neuts % (Manual) Lymphocytes % (Manual) Nucleated RBC % Seg Neutrophils # Man Lymphocytes # (Manual) Monocytes # (Manual) PT INR D-Dimer Heparin Anti-Xa Level 0.91 H POC ABG pH POC ABG pCO2 POC ABG pO2 Sodium Potassium Chloride Carbon Dioxide BUN Creatinine Glucose POC Glucose 214 H 210 H Lactic Acid Calcium Phosphorus Total Bilirubin C-Reactive Protein NT-Pro-B Natriuret Pep Total Protein Albumin Urine WBC (Auto) Urine Creatinine 08/02/18 08/02/18 08/02/18 15:46 17:56 21:50 WBC RBC Hgb Hct MCV MCH RDW Seg Neuts % (Manual) Lymphocytes % (Manual) Nucleated RBC % Seg Neutrophils # Man Lymphocytes # (Manual) Monocytes # (Manual) PT INR D-Dimer Heparin Anti-Xa Level 0.99 H POC ABG pH POC ABG pCO2 POC ABG pO2 Sodium Potassium Chloride Carbon Dioxide BUN Creatinine Glucose POC Glucose 252 H 222 H Lactic Acid Calcium Phosphorus Total Bilirubin C-Reactive Protein NT-Pro-B Natriuret Pep Total Protein Albumin Urine WBC (Auto) Urine Creatinine 08/03/18 08/03/18 08/03/18 02:18 05:21 05:25 WBC RBC Hgb Hct MCV MCH RDW Seg Neuts % (Manual) Lymphocytes % (Manual) Nucleated RBC % Seg Neutrophils # Man Lymphocytes # (Manual) Monocytes # (Manual) PT INR D-Dimer Heparin Anti-Xa Level POC ABG pH POC ABG pCO2 POC ABG pO2 Sodium 151 H Potassium Chloride 107.3 H Carbon Dioxide 37 H BUN 42 H Creatinine 0.6 L Glucose 263 H POC Glucose 241 H 241 H Lactic Acid Calcium Phosphorus Total Bilirubin C-Reactive Protein NT-Pro-B Natriuret Pep Total Protein Albumin Urine WBC (Auto) Urine Creatinine 08/03/18 08/03/18 08/03/18 09:11 12:20 14:33 WBC RBC Hgb Hct MCV MCH RDW Seg Neuts % (Manual) Lymphocytes % (Manual) Nucleated RBC % Seg Neutrophils # Man Lymphocytes # (Manual) Monocytes # (Manual) PT INR D-Dimer Heparin Anti-Xa Level POC ABG pH POC ABG pCO2 POC ABG pO2 Sodium Potassium Chloride Carbon Dioxide BUN Creatinine Glucose POC Glucose 272 H 234 H 247 H Lactic Acid Calcium Phosphorus Total Bilirubin C-Reactive Protein NT-Pro-B Natriuret Pep Total Protein Albumin Urine WBC (Auto) Urine Creatinine 08/03/18 08/03/18 08/04/18 16:48 21:21 01:56 WBC RBC Hgb Hct MCV MCH RDW Seg Neuts % (Manual) Lymphocytes % (Manual) Nucleated RBC % Seg Neutrophils # Man Lymphocytes # (Manual) Monocytes # (Manual) PT INR D-Dimer Heparin Anti-Xa Level POC ABG pH POC ABG pCO2 POC ABG pO2 Sodium Potassium Chloride Carbon Dioxide BUN Creatinine Glucose POC Glucose 180 H 189 H Lactic Acid Calcium Phosphorus Total Bilirubin C-Reactive Protein 2.30 H NT-Pro-B Natriuret Pep Total Protein Albumin Urine WBC (Auto) Urine Creatinine 08/04/18 08/04/18 08/04/18 01:58 05:05 05:05 WBC 25.5 H RBC 3.31 L Hgb 10.8 L Hct 34.1 L MCV 103 H MCH 33 H RDW 16.0 H Seg Neuts % (Manual) Lymphocytes % (Manual) 8.0 L Nucleated RBC % 2.0 H Seg Neutrophils # Man 16.3 H Lymphocytes # (Manual) Monocytes # (Manual) 1.0 H PT INR D-Dimer Heparin Anti-Xa Level 0.79 H POC ABG pH POC ABG pCO2 POC ABG pO2 Sodium 148 H Potassium Chloride Carbon Dioxide 36 H BUN 35 H Creatinine 0.6 L Glucose 160 H POC Glucose Lactic Acid Calcium Phosphorus Total Bilirubin C-Reactive Protein NT-Pro-B Natriuret Pep Total Protein Albumin Urine WBC (Auto) Urine Creatinine 08/04/18 08/04/18 08/04/18 05:24 05:33 08:46 WBC RBC Hgb Hct MCV MCH RDW Seg Neuts % (Manual) Lymphocytes % (Manual) Nucleated RBC % Seg Neutrophils # Man Lymphocytes # (Manual) Monocytes # (Manual) PT INR D-Dimer Heparin Anti-Xa Level 0.76 H POC ABG pH POC ABG pCO2 65.7 H POC ABG pO2 63 L Sodium Potassium Chloride Carbon Dioxide BUN Creatinine Glucose POC Glucose 159 H Lactic Acid Calcium Phosphorus Total Bilirubin C-Reactive Protein NT-Pro-B Natriuret Pep Total Protein Albumin Urine WBC (Auto) Urine Creatinine 08/04/18 08/04/18 08/04/18 09:12 15:38 18:20 WBC RBC Hgb Hct MCV MCH RDW Seg Neuts % (Manual) Lymphocytes % (Manual) Nucleated RBC % Seg Neutrophils # Man Lymphocytes # (Manual) Monocytes # (Manual) PT INR D-Dimer Heparin Anti-Xa Level POC ABG pH POC ABG pCO2 POC ABG pO2 Sodium Potassium Chloride Carbon Dioxide BUN Creatinine Glucose POC Glucose 140 H 267 H 252 H Lactic Acid Calcium Phosphorus Total Bilirubin C-Reactive Protein NT-Pro-B Natriuret Pep Total Protein Albumin Urine WBC (Auto) Urine Creatinine 08/04/18 08/05/18 08/05/18 21:17 02:51 04:36 WBC RBC Hgb Hct MCV MCH RDW Seg Neuts % (Manual) Lymphocytes % (Manual) Nucleated RBC % Seg Neutrophils # Man Lymphocytes # (Manual) Monocytes # (Manual) PT INR D-Dimer Heparin Anti-Xa Level POC ABG pH POC ABG pCO2 POC ABG pO2 Sodium Potassium Chloride Carbon Dioxide BUN Creatinine Glucose POC Glucose 181 H 240 H 255 H Lactic Acid Calcium Phosphorus Total Bilirubin C-Reactive Protein NT-Pro-B Natriuret Pep Total Protein Albumin Urine WBC (Auto) Urine Creatinine 08/05/18 04:55 WBC RBC Hgb Hct MCV MCH RDW Seg Neuts % (Manual) Lymphocytes % (Manual) Nucleated RBC % Seg Neutrophils # Man Lymphocytes # (Manual) Monocytes # (Manual) PT INR D-Dimer Heparin Anti-Xa Level POC ABG pH 7.506 H POC ABG pCO2 56.0 H POC ABG pO2 63 L Sodium Potassium Chloride Carbon Dioxide BUN Creatinine Glucose POC Glucose Lactic Acid Calcium Phosphorus Total Bilirubin C-Reactive Protein NT-Pro-B Natriuret Pep Total Protein Albumin Urine WBC (Auto) Urine Creatinine Allied health notes reviewed: nursing
[2018-08-05] MEDS: MAXIPIME/NS 2 GM/100 ML 2 GM/100 ML BAG IV SCH ×2 (10:00→22:00)
[2018-08-05] MEDS ORDERED: LANTUS SUB-Q ONE (10:00)
--- NOTE | 2018-08-05 10:20 | Progress Note ---
Assessment and Plan 1. Acute kidney injury: Likely Vasomotor / hemodynamic CARLEE in the setting of A.fib with RVR. Renal function is better. 2. FEN: Hypernatremia, continue water flushes. Monitor. 3. A.fib: On Amiodarone. Heparin drip on hold. 4. Respiratory failure: On vent. 5. Hematuria: S/p Cysto. Subjective Date of service: 08/05/18 Principal diagnosis: AFib Interval history: Patient was seen and examined at the bedside. Objective - Vital Signs Vital signs: Vital Signs - 12hr 08/04/18 08/04/18 08/04/18 22:30 23:00 23:30 Temperature Pulse Rate 79 79 83 Pulse Rate [ Anterior Bilateral Throughout] Pulse Rate [ From Monitor] Respiratory 26 H 28 H 29 H Rate Respiratory Rate [Anterior Bilateral Throughout] Blood Pressure 123/53 123/60 150/64 O2 Sat by Pulse 94 95 94 Oximetry 08/04/18 08/05/18 08/05/18 23:49 00:00 00:01 Temperature 98.5 F Pulse Rate 83 82 80 Pulse Rate [ Anterior Bilateral Throughout] Pulse Rate [ 75 From Monitor] Respiratory 24 Rate Respiratory Rate [Anterior Bilateral Throughout] Blood Pressure 137/64 O2 Sat by Pulse 95 95 Oximetry 08/05/18 08/05/18 08/05/18 00:06 00:30 01:00 Temperature Pulse Rate 80 76 75 Pulse Rate [ Anterior Bilateral Throughout] Pulse Rate [ From Monitor] Respiratory 21 26 H Rate Respiratory Rate [Anterior Bilateral Throughout] Blood Pressure 137/64 124/60 137/64 O2 Sat by Pulse 96 93 Oximetry 08/05/18 08/05/18 08/05/18 01:31 02:00 02:30 Temperature Pulse Rate 73 78 76 Pulse Rate [ Anterior Bilateral Throughout] Pulse Rate [ From Monitor] Respiratory 24 26 H 29 H Rate Respiratory Rate [Anterior Bilateral Throughout] Blood Pressure 137/64 137/64 137/66 O2 Sat by Pulse 96 93 93 Oximetry 08/05/18 08/05/18 08/05/18 03:00 03:30 04:00 Temperature 98.9 F Pulse Rate 75 73 73 Pulse Rate [ Anterior Bilateral Throughout] Pulse Rate [ 79 From Monitor] Respiratory 28 H 25 H 23 Rate Respiratory Rate [Anterior Bilateral Throughout] Blood Pressure 125/67 122/60 124/64 O2 Sat by Pulse 93 91 98 Oximetry 08/05/18 08/05/18 08/05/18 04:30 04:50 05:00 Temperature Pulse Rate 75 79 88 Pulse Rate [ Anterior Bilateral Throughout] Pulse Rate [ From Monitor] Respiratory 25 H 30 H Rate Respiratory Rate [Anterior Bilateral Throughout] Blood Pressure 111/69 111/69 136/67 O2 Sat by Pulse 89 95 97 Oximetry 08/05/18 08/05/18 08/05/18 05:22 05:30 06:00 Temperature Pulse Rate 86 82 70 Pulse Rate [ Anterior Bilateral Throughout] Pulse Rate [ From Monitor] Respiratory 30 H 24 Rate Respiratory Rate [Anterior Bilateral Throughout] Blood Pressure 136/67 147/70 117/61 O2 Sat by Pulse 93 96 Oximetry 08/05/18 08/05/18 08/05/18 06:30 07:00 07:30 Temperature Pulse Rate 67 76 78 Pulse Rate [ Anterior Bilateral Throughout] Pulse Rate [ From Monitor] Respiratory 24 29 H 31 H Rate Respiratory Rate [Anterior Bilateral Throughout] Blood Pressure 126/62 137/71 147/72 O2 Sat by Pulse 94 92 91 Oximetry 08/05/18 08/05/18 08/05/18 08:00 08:30 08:56 Temperature 98.7 F Pulse Rate 78 76 Pulse Rate [ 83 Anterior Bilateral Throughout] Pulse Rate [ From Monitor] Respiratory 28 H 30 H Rate Respiratory 20 Rate [Anterior Bilateral Throughout] Blood Pressure 136/57 145/67 O2 Sat by Pulse 93 92 Oximetry 08/05/18 09:00 Temperature Pulse Rate 75 Pulse Rate [ Anterior Bilateral Throughout] Pulse Rate [ From Monitor] Respiratory 27 H Rate Respiratory Rate [Anterior Bilateral Throughout] Blood Pressure 135/64 O2 Sat by Pulse 93 Oximetry - General Appearance General appearance: well-developed, appears stated age, intubated, other (on vent) EENT: ATNC, PERRL Respiratory: Present: Clear to Ascultation Cardiology: regular, S1S2, no murmurs Gastrointestinal: normoactive bowel sounds, no tenderness, no distended Integumentary: no rash Neurologic: other (restless, appears agitated) Musculoskeletal: other (tarce LE edema noted) - Lab 08/05/18 12:39 08/05/18 12:39 Most recent lab results Calcium 9.4 mg/dL (8.4-10.2) 08/04/18 05:05 Phosphorus 3.60 mg/dL (2.5-4.5) 08/02/18 04:45 Magnesium 2.20 mg/dL (1.7-2.3) 07/31/18 03:14 Urine Creatinine 72.3 mg/dL (0.1-20.0) H 07/29/18 09:24 Urine Sodium 12 mmol/L 07/29/18 09:24 Medications & Allergies - Medications Allergies/Adverse Reactions: Allergies No Known Allergies Allergy (Verified 12/12/13 06:46) Home Medications: Home Medications Medication Instructions Recorded Confirmed Last Taken Type Pravastatin Sodium 40 mg PO DAILY 12/12/13 07/27/18 07/27/18 History Clopidogrel [Plavix] 75 mg PO DAILY #30 tablet 04/03/15 07/27/18 07/27/18 Rx amLODIPine [Norvasc] 10 mg PO DAILY #30 tablet 04/03/15 07/27/18 07/27/18 Rx Fluticasone/Salmeterol [Advair 1 puff IH BID 12/31/15 07/27/18 07/27/18 History Diskus 250-50 mcg] ALBUTEROL Inhaler (OR & NICU) 2 puff IH QID PRN 07/27/18 07/27/18 Unknown History [Proair] Aspirin [Aspirin BABY CHEW TAB] 81 mg PO DAILY 07/27/18 07/27/18 07/27/18 History Cyanocobalamin (Vitamin B-12) 2,500 mcg PO DAILY 07/27/18 07/27/18 07/27/18 History [Vitamin B12] [place]-3S/Dha/Epa/Fish Oil/D3 [Fish 1 each PO DAILY 07/27/18 07/27/18 07/27/18 History [id number]-Vit D Softgel] Active Medications: Generic Name Dose Route Start Last Admin Trade Name Freq PRN Reason Stop Dose Admin Acetaminophen 650 mg 07/28/18 04:34 07/28/18 05:29 Tylenol [place] 650 mg Q4H PRN Administration Fever >101 Amiodarone HCl 200 mg 07/29/18 14:00 08/04/18 21:18 Cordarone PO 200 mg BID IGNACIO Administration Lipase/Protease/Amylase 1 each 07/28/18 13:[address] 10,500 Unit FEEDTUBE PRN PRN For Clogged Feeding Tube Arformoterol Tartrate 15 mcg 07/27/18 20:00 08/05/18 08:56 Brovana Nebu IH 15 mcg Q12HRT IGNACIO Administration Budesonide 0.5 mg 07/27/18 20:00 08/05/18 08:56 Pulmicort IH 0.5 mg Q12HRT IGNACIO Administration Clopidogrel Bisulfate 75 mg 07/28/18 10:00 08/04/18 10:20 Plavix PO 75 mg DAILY IGNACIO Administration Cyanocobalamin 2,500 mcg 07/28/18 10:00 08/04/18 10:21 Vitamin B-12 PO 2,500 mcg QDAY IGNACIO Administration Diltiazem HCl 60 mg 07/27/18 18:00 08/05/18 10:11 Cardizem PO Not Given Q6HR IGNACIO Famotidine 20 mg 08/01/18 10:00 08/04/18 21:19 Pepcid PO 20 mg BID IGNACIO Administration Hydrophilic Ointment 1 applic 07/27/18 20:09 Vaseline Lip Therapy TP Q2HR PRN Dry Lips Heparin Sodium/Sodium Chloride 25,000 unit in 500 mls @ 24 mls/hr 07/27/18 17 :00 08/05/18 01:56 Heparin/ 0.45% Nacl-25,000 Unit/500 Ml IV 1,600 units/hr TITR IGNACIO 32 mls/hr Administration Protocol 1,200 UNITS/HR Propofol 1,000 mg in 100 mls @ 2.531 mls/hr 07/27/18 21:00 08/05/18 08:40 Diprivan 10 Mg/Ml IV 0 mcg/kg/min TITR IGNACIO 0 mls/hr Titration Protocol 5 MCG/KG/MIN Cefepime HCl 2 gm in 100 mls @ 200 mls/hr 08/01/18 14:00 18 21:17 Maxipime/Ns 2 Gm/100 Ml IV 200 mls/hr Q12HR IGNACIO Administration Protocol Fentanyl Citrate 2,000 mcg in 100 mls @ 2.285 mls/hr 08/01/18 14:00 08/03/18 19:13 Fentanyl Drip Premix IV 1 mcg/kg/hr TITR IGNACIO 4.57 mls/hr Administration Protocol 0.5 MCG/KG/HR Insulin Glargine 20 units 08/05/18 22:00 Lantus SUB-Q QHS IGNACIO Insulin Human Lispro 0 unit 07/29/18 07:00 08/05/18 05:25 Humalog SUB-Q 3 unit Q4HR IGNACIO Administration Protocol Methylprednisolone Sodium Succinate 40 mg 08/03/18 22:00 08/04/18 21:18 Solu-Medrol IV 40 mg Q12HR IGNACIO Administration Multi-Ingred Cream/Lotion/Oil/Oint 1 applic 07/27/18 20:09 Artificial Tears Ophth Oint OU Q4HR PRN Dry Eye(s) Pravastatin Sodium 40 mg 07/28/18 10:00 08/04/18 10:20 Pravachol PO 40 mg DAILY IGNACIO Administration Quetiapine Fumarate 100 mg 08/03/18 10:00 08/04/18 21:18 Seroquel PO 100 mg BID IGNACIO Administration Simple Syrup 15 ml 07/28/18 13:57 Simple Syrup FEEDTUBE PRN PRN Hypoglycemia Simple Syrup 30 ml 07/28/18 13:57 Simple Syrup FEEDTUBE PRN PRN Hypoglycemia Sodium Bicarbonate 325 mg 07/28/18 13:57 Sodium Bicarbonate FEEDTUBE PRN PRN For Clogged Feeding Tube Sodium Chloride 10 ml 07/27/18 22:00 08/04/18 21:19 Sodium Chloride Flush Syringe 10 Ml IV 10 ml BID IGNACIO Administration Sodium Chloride 10 ml 07/27/18 15:59 Sodium Chloride Flush Syringe 10 Ml IV PRN PRN LINE FLUSH
[2018-08-05] MEDS: VITAMIN B-12 PO SCH (10:36)
[2018-08-05] MEDS: PLAVIX PO SCH (10:37)
[2018-08-05] MEDS: PEPCID PO SCH ×2 (10:37→22:10)
[2018-08-05] MEDS: CORDARONE PO SCH ×2 (10:37→22:10)
[2018-08-05] MEDS: SODIUM CHLORIDE FLUSH SYRINGE 10 ML IV SCH ×2 (10:38→22:00)
[2018-08-05] MEDS: SOLU-Medrol IV SCH (10:38)
[2018-08-05] MEDS: PRAVACHOL PO SCH (10:38)
--- NOTE | 2018-08-05 10:51 | Progress Note ---
Assessment and Plan Optimize BPs - increase cardizem. Pt with new development of hematuria today. Hold heparin gtt and recommend further eval/management per primary. Follow up CBC. Consider initiation of NOAC once hematuria resolved. Vent weaning per pulmonary. The patient has been seen in conjunction with Dr. Echols who agrees with the assessment and plan of care. - Patient Problems (1) Atrial fibrillation with RVR Current Visit: Yes Status: Acute (2) Acute respiratory failure Current Visit: Yes Status: Acute Qualifiers: Respiratory failure complication: hypoxia Qualified Code(s): J96.01 - Acute respiratory failure with hypoxia (3) COPD (chronic obstructive pulmonary disease) Current Visit: Yes Status: Chronic (4) Pneumonia Current Visit: Yes Status: Acute (5) Nonobstructive atherosclerosis of coronary artery Current Visit: Yes Status: Chronic (6) Hypertension Current Visit: Yes Status: Chronic Qualifiers: Hypertension type: essential hypertension Qualified Code(s): I10 - Essential (primary) hypertension (7) Hyperlipemia Current Visit: Yes Status: Chronic Qualifiers: Hyperlipidemia type: Mixed hyperlipidemia (8) Peripheral vascular disease Current Visit: Yes Status: Chronic (9) CARLEE (acute kidney injury) Current Visit: Yes Status: Acute (10) Lactic acid acidosis Current Visit: Yes Status: Acute (11) Hematuria Current Visit: Yes Status: Acute Subjective Date of service: 08/05/18 Principal diagnosis: AFib Interval history: pt remains intubated, alert, in SR with freq PACs on telemetry. heparin gtt infusing. Objective Last Vital Signs Temp 98.7 F 08/05/18 08:00 Pulse 75 08/05/18 09:00 Resp 27 H 08/05/18 09:00 BP 135/64 08/05/18 09:00 Pulse Ox 93 08/05/18 09:00 - Physical Examination General: Other (intubated, alert) HEENT: Positive: Normocephaly, Mucus Membranes Moist Neck: Positive: neck supple, trachea midline Cardiac: Positive: Reg Rate and Rhythm, S1/S2 Lungs: Positive: Decreased Breath Sounds, Ventilated Respirations Neuro: Positive: Other (intubated, alert) Skin: Negative: Rash, Wound Musculoskeletal: No Pain Extremities: Absent: edema - Imaging and Cardiology EKG: report reviewed, image reviewed Echo: report reviewed ( 07/27/2018 EF 60-65%, asymmetric septal hypertrophy, mild TR. 05/2017 showed EF 55-60%, grade 1 diastolic dysfunction, mild TR, RVSP 22mmHg. 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 Treat medically. ) - Telemetry EKG Rhythm: Sinus Rhythm - Allied health notes Allied health notes reviewed: nursing
--- NOTE | 2018-08-05 11:00 | Progress Note ---
Assessment and Plan Cultures: 07/27/2018 tracheal aspirate culture: Pseudomonas aeruginosa, MSSA 07/28/2018 blood culture: 4 out of 4 bottles positive for Streptococcus anginosus 07/28/2018 fungal blood culture: In progress but no growth thus far 07/29/2018 urine culture: No growth 08/01/2018 blood culture: negative thus far A/P: 73-year-old male with COPD, peripheral vascular disease, hypertension, hyperlipidemia, seizure disorder admitted with: 1) Sepsis secondary to Streptococcus anginosus bacteremia: Present on admission. Source is unclear. Patient does have evidence of pneumonia however sputum cultures are not concordant and are growing pseudomonas aeruginosa and MSSA. Reviewed cardiology note, REGAN was reportedly negative. Continue abx, previously received Ceftriaxone and Vancomycin, now Cefepime. 2) Acute respiratory failure secondary to congestive heart failure and pneumonia: Continue IV cefepime to cover both MSSA and Pseudomonas. 3) CARLEE, present on admission, now resolved. 4) Leucocytosis: ?multifactorial. patient on steroids. No new fever. Recs: Continue IV cefepime 2 g every 12 hours, ending 08/08/2018 repeat CBC ordered Will follow along. Rhea Ro MD [facility] C: [phone] O: [phone] F: [phone] Subjective Date of service: 08/05/18 Principal diagnosis: AFib Interval history: No fever. More awake, still on the vent. Discussed with RN, reports of hematuria. No diarrhea. Objective - Exam Narrative Exam: Physical Exam: Constitutional: awake, remains intubated Head, Ears, Nose: Normocephalic, atraumatic. External ears, nose normal Eyes: Conjunctivae/corneas clear. No icterus. No ptosis. Neck: Supple, no meningeal signs Oral: intubated Cardiovascular: S1, S2 normal Respiratory: Good air entry, clear to auscultation bilaterally, no rhonchi or crackles GI: Soft, non-tender; bowel sounds normal. No peritoneal signs Musculoskeletal: trace pedal edema, no cyanosis. Skin: No rash or abscess Hem/Lymphatic: No palpable cervical or supraclavicular nodes. No lymphangitis Psych: no agitation Neurological: more awake, intubated, exam limited - Constitutional Vitals: Vital Signs Temp Pulse Resp BP Pulse Ox 98.7 F 75 27 H 135/64 93 08/05/18 08:00 08/05/18 09:00 08/05/18 09:00 08/05/18 09:00 08/05/18 09:00 Temperature -Last 24 Hours Temperature 98.7 F Temperature 98.9 F Temperature 98.5 F Temperature 98.5 F Temperature 98.5 F Temperature 99.7 F Temperature 99.7 F - Labs CBC & Chem 7: 08/04/18 05:05 08/04/18 05:05 Labs: Abnormal lab results 08/04/18 08/04/18 08/04/18 Range/Units 15:38 18:20 21:17 POC ABG pH (7.35-7.45) POC ABG pCO2 (35-45) POC ABG pO2 (80-105) POC Glucose 267 H 252 H 181 H (70-105) 08/05/18 08/05/18 08/05/18 Range/Units 02:51 04:36 04:55 POC ABG pH 7.506 H (7.35-7.45) POC ABG pCO2 56.0 H (35-45) POC ABG pO2 63 L (80-105) POC Glucose 240 H 255 H (70-105) 08/05/18 Range/Units 10:21 POC ABG pH (7.35-7.45) POC ABG pCO2 (35-45) POC ABG pO2 (80-105) POC Glucose 227 H (70-105)
[2018-08-05] MEDS: DIPRIVAN 10 MG/ML 1,000 MG/100 ML BOTTLE IV SCH (11:45)
[2018-08-05 12:55] LABS: Hematocrit 32.6 % (35.5-45.6); Hemoglobin 10.3 gm/dl (11.8-15.2); Mean Corpuscular HGB Conc 32 % (32-34); Mean Corpuscular Volume 103 fl (84-94); Platelet Count 245 K/mm3 (140-440); Red Blood Count 3.18 M/mm3 (3.65-5.03); Red Cell Distribution Width 16.3 % (13.2-15.2)
[2018-08-05 13:13] LABS: BUN/Creatinine Ratio 60; Blood Urea Nitrogen 36 mg/dL (9-20); Calcium 9.4 mg/dL (8.4-10.2); Hemolysis Index 11
[2018-08-05 14:02] LABS: Band Neutrophils # (Manual) 0.4 K/mm3; Basophils % (Manual) 0 % (0.0-1.8); Eosinophils % (Manual) 0 % (0.0-4.3); Myelocytes # (Manual) 0.2 K/mm3; Total Cells Counted 100
[2018-08-05 14:04] LABS: Anisocytosis 1+; Hypochromasia 1+; Macrocytosis 1+; Platelet Estimate Consistent w Auto; Target Cells Few
--- NOTE | 2018-08-05 14:31 | Anesthesia Consultation ---
Anesthesia Consult and Med Hx Date of service: 08/05/18 - Pre-Operative Health Status ASA Pre-Surgery Classification: ASA3, Emergency Proposed Anesthetic Plan: General - Pulmonary Hx Smoking: Yes (Quit 2011) Hx Asthma: No Hx Respiratory Symptoms: No SOB: Yes COPD: Yes Hx Pneumonia: Yes (03/2014, currently also, per POA) Hx Sleep Apnea: No - Cardiovascular System Hx Hypertension: Yes Hx Coronary Artery Disease: No Hx Heart Attack/AMI: No Hx Angina: No Hx Percutaneous Transluminal Coronary Angioplasty (PTCA): No Hx Cardia Arrhythmia: No Hx Pacemaker: No Hx Internal Defibrillator: No Hx Valvular Heart Disease: Yes (moderate TR) Hx Heart Murmur: No Hx Peripheral Vascular Disease: Yes (lower extremities) - Central Nervous System Hx Neuromuscular Disorder: No Hx Seizures: No CVA: No Hx Back Pain: No Hx Psychiatric Problems: No - Gastrointestinal Hx Ulcer: No Hx Gastroesophageal Reflux Disease: Yes (food related) - Endocrine Hx Renal Disease: No Hx End Stage Renal Disease: No Hx Cirrhosis: No Hx Liver Disease: No Hx Insulin Dependent Diabetes: No Hx Non-Insulin Dependent Diabetes: No Hx Thyroid Disease: No Hx Hypothyroidism: No Hx Hyperthyroidism: No - Hematic Hx Anemia: No Hx Sickle Cell Disease: No - Other Systems Hx Alcohol Use: Yes Hx Substance Use: No Hx Cancer: Yes (SKIN(FACE,CHIN, NECK, NOSE, ARMS) REMOVED) Hx Obesity: No - Additional Comments Anesthesia Medical History Comments: Hx clots, per POA (could not specify where).
--- NOTE | 2018-08-05 15:16 | Progress Note ---
Assessment and Plan Assessment and plan: Sepsis; - Blood cultures reveal Streptococcus anginosus. - ID consulted and change antibiotics to cefepime to be completed on08/08 Left lower lobe pneumonia; - Continue antibiotics. - Sputum culture revealed Pseudomonas and staph Acute hypoxemic respiratory failure - Continue on mechanical ventilation and weaning per pulmonary - CXR showed vascular congestion Atrial fibrillation - Continue amiodarone and diltiazem. - Cardiology following. - Check echocardiogram. Acute renal failure - Etiology likely secondary to sepsis/ATN. - Renal ultrasound unremarkable. COPD exacerbation. - Continue bronchodilators/nebulizers. - IV steroids. Hypertension. - Resume antihypertensive medications as needed. Hyperlipidemia. - Peripheral vascular disease. The high probability of a clinically significant, sudden or life threatening deterioration of the [respiratory] system(s) required my full and direct attention, intervention and personal management. The aggregate critical care time was [32] minutes. This time is in addition to time spent performing reported procedures but includes the following: [x] Data Review and interpretation [x] Patient assessment and monitoring of vital signs [x] Documentation [x] Medication orders and management History Interval history: 73 YO Male with H/O COPD, PVD, HTN, HLD, Seizure Disorder, Skin Cancer presents to ED for evaluation. Pt states that he has experienced shortness and chest palpitations over the past 2 days with worsening symptoms over the past 1 day. Pt acknowledges decreased exercise tolerance, as well as dyspnea on exertion. 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 Pt denies fever, chills, leg swelling, calf pain, CP with deep breathing, hemoptysis, Prolonged air/car travel, or immobility, Back Pain, Syncope, Lightheadedness, recent ill contacts, unintentional weight loss, night sweats, or bone pain. Pt seen and evaluated in ED and found to have Atrial Fib with RVR refractory to cardizem drip, but improved with Amiodarone Drip, Acute Hypoxemic Respiratory Failure, SIRS. Pt admitted to ICU. The patient later after admission had further decompensation with respiratory distress. Patient reportedly was satting 60-70% on a nonrebreather and had to be emergently intubated. The patient remains intubated on mechanical ventilation History Interval history: Patient was seen and evaluated this morning, patient was not able to communicate. Intubated and on mechanical ventilation. Hospitalist Physical - Physical exam Narrative exam: Patient is intubated and on mechanical ventilation. The patient is obese. Vital signs as documented. Head exam is unremarkable. No scleral icterus . Neck is without jugular venous distension, thyromegaly, or carotid bruits. Lungs are clear to auscultation. Cardiac exam reveals regular rate and Rhythm. Abdominal exam reveals normal bowel sounds. Extremities are nonedematous and both femoral and pedal pulses are normal. SKEIN BANDER: Sedated. - Constitutional Vitals: Temp Pulse Resp BP Pulse Ox 98.5 F 69 22 113/53 91 08/05/18 12:00 08/05/18 14:00 08/05/18 14:00 08/05/18 14:00 08/05/18 14:00 General appearance: Present: no acute distress, other (intubated on mechanical ventilation) Results - Labs CBC & Chem 7: 08/05/18 12:39 08/05/18 12:39 Labs: Laboratory Last Values WBC 21.8 K/mm3 (4.5-11.0) H 08/05/18 12:39 RBC 3.18 M/mm3 (3.65-5.03) L 08/05/18 12:39 Hgb 10.3 gm/dl (11.8-15.2) L 08/05/18 12:39 Hct 32.6 % (35.5-45.6) L 08/05/18 12:39 MCV 103 fl (84-94) H 08/05/18 12:39 MCH 33 pg (28-32) H 08/05/18 12:39 MCHC 32 % (32-34) 08/05/18 12:39 RDW 16.3 % (13.2-15.2) H 08/05/18 12:39 Plt Count 245 K/mm3 (140-440) 08/05/18 12:39 Add Manual Diff Complete 08/05/18 12:39 Total Counted 100 08/05/18 12:39 Seg Neutrophils % Yarn Weigher 08/05/18 12:39 Seg Neuts % (Manual) 88.0 % (40.0-70.0) H 08/05/18 12:39 Band Neutrophils % 2.0 % 08/05/18 12:39 Lymphocytes % (Manual) 4.0 % (13.4-35.0) L 08/05/18 12:39 Reactive Lymphs % (Man) 0 % 08/05/18 12:39 Monocytes % (Manual) 3.0 % (0.0-7.3) 08/05/18 12:39 Eosinophils % (Manual) 0 % (0.0-4.3) 08/05/18 12:39 Basophils % (Manual) 0 % (0.0-1.8) 08/05/18 12:39 Metamyelocytes % 2.0 % 08/05/18 12:39 Myelocytes % 1.0 % 08/05/18 12:39 Promyelocytes % 0 % 08/05/18 12:39 Blast Cells % 0 % 08/05/18 12:39 Nucleated RBC % Not Reportable 08/05/18 12:39 Seg Neutrophils # Man 19.2 K/mm3 (1.8-7.7) H 08/05/18 12:39 Band Neutrophils # 0.4 K/mm3 08/05/18 12:39 Lymphocytes # (Manual) 0.9 K/mm3 (1.2-5.4) L 08/05/18 12:39 Abs React Lymphs (Man) 0.0 K/mm3 08/05/18 12:39 Monocytes # (Manual) 0.7 K/mm3 (0.0-0.8) 08/05/18 12:39 Eosinophils # (Manual) 0.0 K/mm3 (0.0-0.4) 08/05/18 12:39 Basophils # (Manual) 0.0 K/mm3 (0.0-0.1) 08/05/18 12:39 Metamyelocytes # 0.4 K/mm3 08/05/18 12:39 Myelocytes # 0.2 K/mm3 08/05/18 12:39 Promyelocytes # 0.0 K/mm3 08/05/18 12:39 Blast Cells # 0.0 K/mm3 08/05/18 12:39 Pathologist Review 07/28/18 06:01 WBC Morphology Not Reportable 08/05/18 12:39 Hypersegmented Neuts Not Reportable 08/05/18 12:39 Hyposegmented Neuts Not Reportable 08/05/18 12:39 Hypogranular Neuts Not Reportable 08/05/18 12:39 Smudge Cells Not Reportable 08/05/18 12:39 Toxic Granulation Not Reportable 08/05/18 12:39 Toxic Vacuolation Not Reportable 08/05/18 12:39 Dohle Bodies Not Reportable 08/05/18 12:39 Pelger-Huet Anomaly Not Reportable 08/05/18 12:39 Janiya Rods Not Reportable 08/05/18 12:39 Platelet Estimate Consistent w auto 08/05/18 12:39 Clumped Platelets Not Reportable 08/05/18 12:39 Plt Clumps, EDTA Not Reportable 08/05/18 12:39 Large Platelets Not Reportable 08/05/18 12:39 Giant Platelets Not Reportable 08/05/18 12:39 Platelet Satelliting Not Reportable 08/05/18 12:39 Plt Morphology Comment Not Reportable 08/05/18 12:39 RBC Morphology Not Reportable 08/05/18 12:39 Dimorphic RBCs Not Reportable 08/05/18 12:39 Polychromasia Not Reportable 08/05/18 12:39 Hypochromasia 1+ 08/05/18 12:39 Poikilocytosis Not Reportable 08/05/18 12:39 Anisocytosis 1+ 08/05/18 12:39 Microcytosis Not Reportable 08/05/18 12:39 Macrocytosis 1+ 08/05/18 12:39 Spherocytes Not Reportable 08/05/18 12:39 Pappenheimer Bodies Not Reportable 08/05/18 12:39 Sickle Cells Not Reportable 08/05/18 12:39 Target Cells Few 08/05/18 12:39 Tear Drop Cells Not Reportable 08/05/18 12:39 Ovalocytes Not Reportable 08/05/18 12:39 Helmet Cells Not Reportable 08/05/18 12:39 Lr-[place] Bodies Not Reportable 08/05/18 12:39 Sand[place] Rings Not Reportable 08/05/18 12:39 Drums Cells Not Reportable 08/05/18 12:39 Bite Cells Not Reportable 08/05/18 12:39 Crenated Cell Not Reportable 08/05/18 12:39 Elliptocytes Not Reportable 08/05/18 12:39 Acanthocytes (Spur) Not Reportable 08/05/18 12:39 Rouleaux Not Reportable 08/05/18 12:39 Hemoglobin C Crystals Not Reportable 08/05/18 12:39 Schistocytes Not Reportable 08/05/18 12:39 Malaria parasites Not Reportable 08/05/18 12:39 Jigar Bodies Not Reportable 08/05/18 12:39 Hem Pathologist Commnt No 08/05/18 12:39 PT 16.0 Sec. (12.2-14.9) H 07/27/18 17:09 INR 1.24 (0.87-1.13) H 07/27/18 17:09 APTT 31.9 Sec. (24.2-36.6) 07/27/18 17:09 D-Dimer 798.17 ng/mlDDU (0-234) H 07/27/18 15:52 Heparin Anti-Xa Level 0.58 U.I./ml (0.3-0.7) 08/04/18 17:58 POC ABG pH 7.506 (7.35-7.45) H 08/05/18 04:55 POC ABG pCO2 56.0 (35-45) H 08/05/18 04:55 POC ABG pO2 63 (80-105) L 08/05/18 04:55 POC ABG HCO3 44.3 08/05/18 04:55 POC ABG Total CO2 46 08/05/18 04:55 POC ABG O2 Sat 93 08/05/18 04:55 POC ABG Base Excess 21 08/05/18 04:55 FiO2 40 % 08/05/18 04:55 Sodium 143 mmol/L (137-145) 08/05/18 12:39 Potassium 4.2 mmol/L (3.6-5.0) 08/05/18 12:39 Chloride 96.8 mmol/L (98-107) L 08/05/18 12:39 Carbon Dioxide 38 mmol/L (22-30) H 08/05/18 12:39 Anion Gap 12 mmol/L 08/05/18 12:39 BUN 36 mg/dL (9-20) H 08/05/18 12:39 Creatinine 0.6 mg/dL (0.8-1.5) L 08/05/18 12:39 Estimated GFR > 60 ml/min 08/05/18 12:39 BUN/Creatinine Ratio 60 % 08/05/18 12:39 Glucose 218 mg/dL (75-100) H 08/05/18 12:39 POC Glucose 221 (70-105) H 08/05/18 14:10 Lactic Acid 1.30 mmol/L (0.7-2.0) 08/03/18 16:48 Calcium 9.4 mg/dL (8.4-10.2) 08/05/18 12:39 Phosphorus 3.60 mg/dL (2.5-4.5) 08/02/18 04:45 Magnesium 2.20 mg/dL (1.7-2.3) 07/31/18 03:14 Total Bilirubin 1.30 mg/dL (0.1-1.2) H 07/27/18 12:59 AST 15 units/L (5-40) 07/27/18 12:59 ALT 16 units/L (7-56) 07/27/18 12:59 Alkaline Phosphatase 62 units/L (35-129) 07/27/18 12:59 Troponin T < 0.010 ng/mL (0.00-0.029) 07/27/18 12:59 C-Reactive Protein 2.30 mg/dL (0.00-1.30) H 08/03/18 16:48 NT-Pro-B Natriuret Pep 3913 pg/mL (0-900) H 07/27/18 12:59 Total Protein 6.2 g/dL (6.3-8.2) L 07/27/18 12:59 Albumin 3.6 g/dL (3.9-5) L 07/27/18 12:59 Albumin/Globulin Ratio 1.4 % 07/27/18 12:59 Triglycerides 142 mg/dL (2-149) 08/01/18 04:13 TSH 1.180 mlU/mL (0.270-4.200) 07/27/18 15:52 Free T4 1.28 ng/dL (0.76-1.46) 07/27/18 15:52 Urine Color Yellow (Yellow) 07/29/18 09:24 Urine Turbidity Cloudy (Clear) 07/29/18 09:24 Urine pH 5.0 (5.0-7.0) 07/29/18 09:24 Ur Specific [place] 1.017 (1.003-1.030) 07/29/18 09:24 Urine Protein 30 mg/dl mg/dL (Negative) 07/29/18 09:24 Urine Glucose (UA) Neg mg/dL (Negative) 07/29/18 09:24 Urine Ketones Neg mg/dL (Negative) 07/29/18 09:24 Urine Blood Mod (Negative) 07/29/18 09:24 Urine Nitrite Neg (Negative) 07/29/18 09:24 Urine Bilirubin Neg (Negative) 07/29/18 09:24 Urine Urobilinogen < 2.0 mg/dL (<2.0) 07/29/18 09:24 Ur Leukocyte Esterase Mod (Negative) 07/29/18 09:24 Urine WBC (Auto) 29.0 /HPF (0.0-6.0) H 07/29/18 09:24 Urine RBC (Auto) 7.0 /HPF (0.0-6.0) 07/29/18 09:24 U Epithel Cells (Auto) 2.0 /HPF (0-13.0) 07/29/18 09:24 Urine Bacteria (Auto) 1+ /HPF (Negative) 07/29/18 09:24 Urine Mucus Few /HPF 07/29/18 09:24 Urine Yeast (Budding) 1+ /HPF 07/29/18 09:24 Urine Creatinine 72.3 mg/dL (0.1-20.0) H 07/29/18 09:24 Urine Sodium 12 mmol/L 07/29/18 09:24 Random Vancomycin 9.2 ug/mL (0-40.0) 07/29/18 04:21 Nutrition/Malnutrition Assess - Dietary Evaluation Nutrition/Malnutrition Findings: Nutrition Notes Start: 07/28/18 10:54 Freq: Status: Active Protocol: Document 08/04/18 10:13 TW (Rec: 08/04/18 10:46 TW [id number]) Co-Sign 08/04/18 10:13 LP Nutrition Notes Initial or Follow up Reassessment Current Diagnoses Acute Kidney Injury COPD Sepsis Hypertension Heart Failure Respiratory Failure Other Pertinent Diagnosis Hx of Skin Cancer Current Diet Nepro at 50ml/hr Labs/Tests BUN: 35 Cr: 0.6 Medications Propofol at 2.53mL/hr (67 lipid kcal) Solumedrol Height 5 ft 8 in Weight 87.6 kg [place] Body Weight (lbs) 154.0 BMI 29.3 Weight change and time frame Wt. change noted. Subjective/Other Information Nepro infusing at goal rate of 50mL/hr. Per RN, pt. tolerating TF well. Percent of energy/protein needs met: 100%/69% Burn Absent Trauma Absent #1 Nutrition Diagnoses Inadequate oral intake Diagnosis Progress(for reassessment Continues documentation) Is patient on ventilator? Yes Is Patient Ambulatory and/or Out of Bed No REE-([facility]-confined to bed) [phone] Calculation Used for Recommendations [facility] Additional Notes protein (2g/kg IBW): 140g daily fluid: 1mL/kcal Nutrition Intervention Change Diet Order: Continue TF Nutrition Support: Nepro at 50mL/hr 250 mL free water flush q4h or per MD. Kcal 2,160 Protein (gm) 97 Fluid (mL) 872 Goal #1 TF tolerance and rate Goal #2 Meet at least 80% of kcal needs and 80-100% of protein needs. Anticipated Discharge Needs: unable to determine at this time Follow-Up By: 08/10/18 Additional Comments F/U for stable TF
--- NOTE | 2018-08-05 15:55 | Post Operative Note ---
Date of procedure: 08/05/18 Pre-op diagnosis: gross hematuria, stricture Procedure: cysto, cystogram, 16 F [place] tip cath Surgeon: JOMAR ROBERTS Condition: stable Disposition: ICU
[2018-08-05] MEDS ORDERED: NACL 0.9% 1000 ML 1,000 ML ONE (16:03)
[2018-08-05] MEDS: LANTUS SUB-Q SCH (22:10)
[2018-08-06] MEDS: CARDIZEM PO SCH ×5 (01:09→17:00)
[2018-08-06] MEDS: HumaLOG SUB-Q SCH ×6 (02:00→18:19)
[2018-08-06 05:37] LABS: Hematocrit 31.3 % (35.5-45.6); Hemoglobin 10.2 gm/dl (11.8-15.2); Mean Corpuscular HGB Conc 33 % (32-34); Mean Corpuscular Volume 102 fl (84-94); Platelet Count 237 K/mm3 (140-440); Red Blood Count 3.06 M/mm3 (3.65-5.03); Red Cell Distribution Width 16.1 % (13.2-15.2)
[2018-08-06 06:01] LABS: BUN/Creatinine Ratio 74; Blood Urea Nitrogen 37 mg/dL (9-20); Calcium 9.4 mg/dL (8.4-10.2); Hemolysis Index 15
[2018-08-06] MEDS: fentaNYL DRIP Premix 2,000 MCG/100 ML BAG IV SCH (07:59)
[2018-08-06] MEDS: BROVANA NEBU IH SCH ×2 (09:01→19:46)
[2018-08-06] MEDS: PULMICORT IH SCH ×2 (09:01→19:46)
--- NOTE | 2018-08-06 09:20 | Progress Note ---
Assessment and Plan Acute hypoxemic respiratory failure, on mechanical ventilatory support. Atrial fibrillation with rapid ventricular response, now sinus. 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 Elevated D-dimer. Leukocytosis, worsening Hematuria. Sepsis Chronic obstructive lung disease-acute exacerbation. Hypertension. Peripheral vascular disease. Mixed acidosis, respiratory and metabolic. Acute kidney injury. Lactic acidosis. Elevated BNP level of 3913. History of hypertension. History of arthritis. - Daily SAT and SBTas tolerated - VAP bundle addressed - titrate sedation for RASS 0 to -1 -Avoid delirium - continue enteric nutrition as tolerated - continue supplemental oxygen to keep sats > 90% - aspiration precautions - continue bronchodilators with pulmonary hygiene per RT -Therapeutic anticoagulation- per Cardiology. Statr VTE prophylaxis with heparin -Stress ulcer prophylaxis -Antibiotics to complete course -Mobility for pressure ulcer prevention -Continue PT/OT Discussed with sister at the bedside, family is OK with tracheostomy placement. Will get General surgery consult for trachesotomy FULL CODE CONDITION: CRITICAL PROGNOSIS: GUARDED The high probability of a clinically significant, sudden or life-threatening deterioration of the [respiratory, cardiovascular, renal] system(s) required my full and direct attention, intervention and personal management. The aggregate critical care time was [35] minutes without overlap. Time includes spent on; [x] Data Review and interpretation [x] Patient assessment and monitoring of vital signs [x] Documentation [x] Medication orders and management Subjective Date of service: 08/06/18 Principal diagnosis: AFib Interval history: Patient is seen today for: Acute hypoxemic respiratory failure on MVS; Atrial fibrillation with RVR; Possible congestive heart failure with an acute exacerbation; History of deep venous thrombosis; Elevated D-dimer. Seen and examined at bedside; 24hour events reviewed; vitals, labs, medications, chart notes reviewed; nursing and respiratory care staff consulted; no adverse overnight events reported to me; remains on MVS;currently in sinus rhythm; no emesis or overt aspiration and tolerating tube feeds; hematuria today s/p zuniga placement in OR by urology. Currently has clear urine with zuniga in place. More awake and alert. Family at the bedside Objective Vital Signs - 12hr 08/05/18 08/05/18 08/05/18 21:30 22:00 22:20 Temperature Pulse Rate 64 67 76 Pulse Rate [ Bilateral] Pulse Rate [ From Monitor] Respiratory 22 26 H Rate Respiratory Rate [Bilateral ] Blood Pressure 116/62 116/59 129/66 O2 Sat by Pulse 93 93 Oximetry 08/05/18 08/05/18 08/05/18 22:30 23:00 23:19 Temperature Pulse Rate 66 74 72 Pulse Rate [ Bilateral] Pulse Rate [ From Monitor] Respiratory 22 19 Rate Respiratory Rate [Bilateral ] Blood Pressure 136/58 139/55 123/59 O2 Sat by Pulse 94 93 94 Oximetry 08/05/18 08/06/18 08/06/18 23:30 00:00 00:30 Temperature 98.3 F Pulse Rate 71 84 85 Pulse Rate [ Bilateral] Pulse Rate [ 86 From Monitor] Respiratory 18 30 H 33 H Rate Respiratory Rate [Bilateral ] Blood Pressure 128/62 134/63 151/46 O2 Sat by Pulse 94 93 91 Oximetry 08/06/18 08/06/18 08/06/18 01:00 01:09 01:30 Temperature Pulse Rate 82 86 71 Pulse Rate [ Bilateral] Pulse Rate [ From Monitor] Respiratory 19 22 Rate Respiratory Rate [Bilateral ] Blood Pressure 128/60 145/75 119/56 O2 Sat by Pulse 91 92 Oximetry 08/06/18 08/06/18 08/06/18 02:00 02:30 03:00 Temperature Pulse Rate 77 75 79 Pulse Rate [ Bilateral] Pulse Rate [ From Monitor] Respiratory 19 25 H 17 Rate Respiratory Rate [Bilateral ] Blood Pressure 121/56 125/62 112/56 O2 Sat by Pulse 92 93 95 Oximetry 08/06/18 08/06/18 08/06/18 03:30 04:00 04:05 Temperature 98.5 F Pulse Rate 70 78 75 Pulse Rate [ Bilateral] Pulse Rate [ 76 From Monitor] Respiratory 21 18 Rate Respiratory Rate [Bilateral ] Blood Pressure 120/55 141/54 141/54 O2 Sat by Pulse 94 92 93 Oximetry 08/06/18 08/06/18 08/06/18 04:30 05:00 05:30 Temperature Pulse Rate 72 75 74 Pulse Rate [ Bilateral] Pulse Rate [ From Monitor] Respiratory 21 25 H 26 H Rate Respiratory Rate [Bilateral ] Blood Pressure 123/55 124/57 125/58 O2 Sat by Pulse 93 93 92 Oximetry 08/06/18 08/06/18 08/06/18 06:00 06:30 07:00 Temperature Pulse Rate 72 70 74 Pulse Rate [ Bilateral] Pulse Rate [ From Monitor] Respiratory 25 H 24 23 Rate Respiratory Rate [Bilateral ] Blood Pressure 118/59 124/60 136/64 O2 Sat by Pulse 91 92 92 Oximetry 08/06/18 08/06/18 08/06/18 07:30 07:58 08:00 Temperature Pulse Rate 82 94 H 77 Pulse Rate [ Bilateral] Pulse Rate [ From Monitor] Respiratory 26 H 31 H Rate Respiratory Rate [Bilateral ] Blood Pressure 150/63 137/71 128/57 O2 Sat by Pulse 91 92 Oximetry 08/06/18 08/06/18 08:30 09:00 Temperature Pulse Rate 81 75 Pulse Rate [ 77 Bilateral] Pulse Rate [ From Monitor] Respiratory 22 25 H Rate Respiratory 29 H Rate [Bilateral ] Blood Pressure 142/58 128/57 O2 Sat by Pulse 90 90 Oximetry Constitutional: appears uncomfortable, other (elderly looking CM, normocephalic and atraumatic with normal increased respiratory effort) Eyes: non-icteric ENT: oropharynx moist, other (ETT 23 cm SUHAS) Neck: supple, no lymphadenopathy, no JVD, other (No thyromegaly) Effort: mildly labored Ascultation: Bilateral: diminished breath sounds, rhonchi Percussion: Bilateral: not dull Cardiovascular: irregular rhythm, other (+ systolic murmur) Gastrointestinal: hypoactive bowel sounds, soft, non-tender, non-distended, other (No palpable HSM) Integumentary: rash, other (upper extremity edema) Extremities: no cyanosis, pink and warm, pulses normal, no ischemia or petechiae Neurologic: non-focal exam (grossly), pupils equal and round, other (moves all extemities) Psychiatric: mood appropriate, affect normal CBC and BMP: 08/06/18 05:17 08/06/18 05:17 ABG, PT/INR, D-dimer: ABG POC ABG pH 7.468 (7.35-7.45) H 08/06/18 05:32 POC ABG pCO2 59.5 (35-45) H 08/06/18 05:32 POC ABG pO2 64 (80-105) L 08/06/18 05:32 POC ABG HCO3 43.1 08/06/18 05:32 POC ABG Total CO2 45 08/06/18 05:32 POC ABG O2 Sat 93 08/06/18 05:32 PT/INR, D-dimer PT 16.0 Sec. (12.2-14.9) H 07/27/18 17:09 INR 1.24 (0.87-1.13) H 07/27/18 17:09 D-Dimer 798.17 ng/mlDDU (0-234) H 07/27/18 15:52 Abnormal lab findings: Abnormal Labs 07/27/18 07/27/18 07/27/18 12:59 12:59 12:59 WBC 15.8 H RBC Hgb Hct MCV 104 H MCH 34 H RDW 16.3 H Seg Neuts % (Manual) 88.0 H Lymphocytes % (Manual) 3.0 L Nucleated RBC % Seg Neutrophils # Man 13.9 H Lymphocytes # (Manual) 0.5 L Monocytes # (Manual) PT 17.0 H INR 1.34 H D-Dimer Heparin Anti-Xa Level POC ABG pH POC ABG pCO2 POC ABG pO2 Sodium Potassium Chloride Carbon Dioxide 21 L BUN 38 H Creatinine 1.6 H Glucose POC Glucose Lactic Acid Calcium Phosphorus Total Bilirubin 1.30 H C-Reactive Protein NT-Pro-B Natriuret Pep 3913 H Total Protein 6.2 L Albumin 3.6 L Urine WBC (Auto) Urine Creatinine 07/27/18 07/27/18 07/27/18 15:52 16:12 17:09 WBC RBC Hgb Hct MCV MCH RDW Seg Neuts % (Manual) Lymphocytes % (Manual) Nucleated RBC % Seg Neutrophils # Man Lymphocytes # (Manual) Monocytes # (Manual) PT 16.0 H INR 1.24 H D-Dimer 798.17 H Heparin Anti-Xa Level POC ABG pH POC ABG pCO2 POC ABG pO2 Sodium Potassium Chloride Carbon Dioxide BUN Creatinine Glucose POC Glucose Lactic Acid 5.00 H* Calcium Phosphorus Total Bilirubin C-Reactive Protein NT-Pro-B Natriuret Pep Total Protein Albumin Urine WBC (Auto) Urine Creatinine 07/27/1818 07/27/18 17:59 18:07 21:31 WBC RBC Hgb Hct MCV MCH RDW Seg Neuts % (Manual) Lymphocytes % (Manual) Nucleated RBC % Seg Neutrophils # Man Lymphocytes # (Manual) Monocytes # (Manual) PT INR D-Dimer Heparin Anti-Xa Level POC ABG pH 7.344 L POC ABG pCO2 POC ABG pO2 36 L Sodium Potassium Chloride Carbon Dioxide BUN Creatinine Glucose POC Glucose Lactic Acid 5.20 H* 5.00 H* Calcium Phosphorus Total Bilirubin C-Reactive Protein NT-Pro-B Natriuret Pep Total Protein Albumin Urine WBC (Auto) Urine Creatinine 07/27/18 07/27/18 07/27/18 21:57 22:42 23:26 WBC RBC Hgb Hct MCV MCH RDW Seg Neuts % (Manual) Lymphocytes % (Manual) Nucleated RBC % Seg Neutrophils # Man Lymphocytes # (Manual) Monocytes # (Manual) PT INR D-Dimer Heparin Anti-Xa Level POC ABG pH 7.199 L POC ABG pCO2 62.0 H POC ABG pO2 Sodium Potassium Chloride Carbon Dioxide BUN Creatinine Glucose POC Glucose Lactic Acid 4.70 H* 5.00 H* Calcium Phosphorus Total Bilirubin C-Reactive Protein NT-Pro-B Natriuret Pep Total Protein Albumin Urine WBC (Auto) Urine Creatinine 07/28/18 07/28/18 07/28/18 00:45 05:40 05:58 WBC RBC Hgb Hct MCV MCH RDW Seg Neuts % (Manual) Lymphocytes % (Manual) Nucleated RBC % Seg Neutrophils # Man Lymphocytes # (Manual) Monocytes # (Manual) PT INR D-Dimer Heparin Anti-Xa Level 0.11 L POC ABG pH 7.186 L POC ABG pCO2 60.1 H POC ABG pO2 68 L Sodium Potassium Chloride Carbon Dioxide BUN Creatinine Glucose POC Glucose Lactic Acid 4.70 H* Calcium Phosphorus Total Bilirubin C-Reactive Protein NT-Pro-B Natriuret Pep Total Protein Albumin Urine WBC (Auto) Urine Creatinine 07/28/18 07/28/18 07/28/18 06:01 06:01 07:19 WBC 12.5 H RBC 3.51 L Hgb 11.5 L Hct MCV 104 H MCH 33 H RDW 16.6 H Seg Neuts % (Manual) Lymphocytes % (Manual) Nucleated RBC % Seg Neutrophils # Man Lymphocytes # (Manual) Monocytes # (Manual) PT INR D-Dimer Heparin Anti-Xa Level 0.14 L POC ABG pH POC ABG pCO2 POC ABG pO2 Sodium 135 L Potassium 5.1 H Chloride 95.0 L Carbon Dioxide 21 L BUN 54 H Creatinine 2.6 H D Glucose POC Glucose Lactic Acid Calcium Phosphorus Total Bilirubin C-Reactive Protein NT-Pro-B Natriuret Pep Total Protein Albumin Urine WBC (Auto) Urine Creatinine 07/28/18 07/28/18 07/28/18 07:19 09:20 11:06 WBC RBC Hgb Hct MCV MCH RDW Seg Neuts % (Manual) Lymphocytes % (Manual) Nucleated RBC % Seg Neutrophils # Man Lymphocytes # (Manual) Monocytes # (Manual) PT INR D-Dimer Heparin Anti-Xa Level POC ABG pH 7.266 L POC ABG pCO2 49.7 H POC ABG pO2 74 L Sodium Potassium Chloride Carbon Dioxide BUN Creatinine Glucose POC Glucose Lactic Acid 4.00 H* 3.90 H* Calcium Phosphorus Total Bilirubin C-Reactive Protein NT-Pro-B Natriuret Pep Total Protein Albumin Urine WBC (Auto) Urine Creatinine 07/28/18 07/28/18 07/28/18 15:06 20:45 23:36 WBC RBC Hgb Hct MCV MCH RDW Seg Neuts % (Manual) Lymphocytes % (Manual) Nucleated RBC % Seg Neutrophils # Man Lymphocytes # (Manual) Monocytes # (Manual) PT INR D-Dimer Heparin Anti-Xa Level 0.15 L POC ABG pH POC ABG pCO2 POC ABG pO2 Sodium 134 L Potassium 5.2 H Chloride Carbon Dioxide BUN 58 H Creatinine 2.1 H Glucose 110 H POC Glucose 125 H Lactic Acid Calcium Phosphorus Total Bilirubin C-Reactive Protein NT-Pro-B Natriuret Pep Total Protein Albumin Urine WBC (Auto) Urine Creatinine 07/29/18 07/29/18 07/29/18 01:12 04:21 04:21 WBC RBC 3.21 L Hgb 10.8 L Hct 33.0 L MCV 103 H MCH 34 H RDW 16.4 H Seg Neuts % (Manual) Lymphocytes % (Manual) 11.0 L Nucleated RBC % Seg Neutrophils # Man Lymphocytes # (Manual) 1.0 L Monocytes # (Manual) PT INR D-Dimer Heparin Anti-Xa Level 0.21 L POC ABG pH POC ABG pCO2 POC ABG pO2 Sodium Potassium Chloride Carbon Dioxide BUN 48 H Creatinine 1.6 H Glucose 166 H POC Glucose Lactic Acid Calcium Phosphorus Total Bilirubin C-Reactive Protein NT-Pro-B Natriuret Pep Total Protein Albumin Urine WBC (Auto) Urine Creatinine 07/29/18 07/29/18 07/29/18 05:19 08:16 09:24 WBC RBC Hgb Hct MCV MCH RDW Seg Neuts % (Manual) Lymphocytes % (Manual) Nucleated RBC % Seg Neutrophils # Man Lymphocytes # (Manual) Monocytes # (Manual) PT INR D-Dimer Heparin Anti-Xa Level 0.25 L POC ABG pH POC ABG pCO2 POC ABG pO2 Sodium Potassium Chloride Carbon Dioxide BUN Creatinine Glucose POC Glucose 181 H Lactic Acid Calcium Phosphorus Total Bilirubin C-Reactive Protein NT-Pro-B Natriuret Pep Total Protein Albumin Urine WBC (Auto) 29.0 H Urine Creatinine 07/29/18 07/29/18 07/29/18 09:24 10:00 15:03 WBC RBC Hgb Hct MCV MCH RDW Seg Neuts % (Manual) Lymphocytes % (Manual) Nucleated RBC % Seg Neutrophils # Man Lymphocytes # (Manual) Monocytes # (Manual) PT INR D-Dimer Heparin Anti-Xa Level POC ABG pH POC ABG pCO2 POC ABG pO2 Sodium Potassium Chloride Carbon Dioxide BUN Creatinine Glucose POC Glucose 195 H 167 H Lactic Acid Calcium Phosphorus Total Bilirubin C-Reactive Protein NT-Pro-B Natriuret Pep Total Protein Albumin Urine WBC (Auto) Urine Creatinine 72.3 H 07/29/18 07/29/18 07/30/18 17:51 21:32 01:38 WBC RBC Hgb Hct MCV MCH RDW Seg Neuts % (Manual) Lymphocytes % (Manual) Nucleated RBC % Seg Neutrophils # Man Lymphocytes # (Manual) Monocytes # (Manual) PT INR D-Dimer Heparin Anti-Xa Level POC ABG pH POC ABG pCO2 POC ABG pO2 Sodium Potassium Chloride Carbon Dioxide BUN Creatinine Glucose POC Glucose 167 H 217 H 194 H Lactic Acid Calcium Phosphorus Total Bilirubin C-Reactive Protein NT-Pro-B Natriuret Pep Total Protein Albumin Urine WBC (Auto) Urine Creatinine 07/30/18 07/30/18 07/30/18 03:21 05:13 10:18 WBC RBC Hgb Hct MCV MCH RDW Seg Neuts % (Manual) Lymphocytes % (Manual) Nucleated RBC % Seg Neutrophils # Man Lymphocytes # (Manual) Monocytes # (Manual) PT INR D-Dimer Heparin Anti-Xa Level POC ABG pH POC ABG pCO2 50.3 H POC ABG pO2 78 L Sodium Potassium Chloride Carbon Dioxide BUN 41 H Creatinine Glucose 202 H POC Glucose 151 H Lactic Acid Calcium Phosphorus Total Bilirubin C-Reactive Protein NT-Pro-B Natriuret Pep Total Protein Albumin Urine WBC (Auto) Urine Creatinine 07/30/18 07/30/18 07/30/18 11:29 16:28 18:12 WBC RBC Hgb Hct MCV MCH RDW Seg Neuts % (Manual) Lymphocytes % (Manual) Nucleated RBC % Seg Neutrophils # Man Lymphocytes # (Manual) Monocytes # (Manual) PT INR D-Dimer Heparin Anti-Xa Level POC ABG pH 7.326 L POC ABG pCO2 53.2 H POC ABG pO2 70 L Sodium Potassium Chloride Carbon Dioxide BUN Creatinine Glucose POC Glucose 247 H 212 H Lactic Acid Calcium Phosphorus Total Bilirubin C-Reactive Protein NT-Pro-B Natriuret Pep Total Protein Albumin Urine WBC (Auto) Urine Creatinine 07/30/18 07/30/18 07/31/18 20:08 21:52 01:59 WBC RBC Hgb Hct MCV MCH RDW Seg Neuts % (Manual) Lymphocytes % (Manual) Nucleated RBC % Seg Neutrophils # Man Lymphocytes # (Manual) Monocytes # (Manual) PT INR D-Dimer Heparin Anti-Xa Level POC ABG pH POC ABG pCO2 POC ABG pO2 Sodium Potassium Chloride Carbon Dioxide BUN Creatinine Glucose POC Glucose 205 H 215 H 242 H Lactic Acid Calcium Phosphorus Total Bilirubin C-Reactive Protein NT-Pro-B Natriuret Pep Total Protein Albumin Urine WBC (Auto) Urine Creatinine 07/31/18 07/31/18 07/31/18 03:14 03:14 04:55 WBC RBC Hgb 10.6 L Hct 33.2 L MCV MCH RDW Seg Neuts % (Manual) Lymphocytes % (Manual) Nucleated RBC % Seg Neutrophils # Man Lymphocytes # (Manual) Monocytes # (Manual) PT INR D-Dimer Heparin Anti-Xa Level POC ABG pH 7.331 L POC ABG pCO2 67.1 H POC ABG pO2 Sodium Potassium Chloride Carbon Dioxide BUN 36 H Creatinine 0.7 L Glucose 242 H POC Glucose Lactic Acid Calcium 10.3 H Phosphorus 2.30 L Total Bilirubin C-Reactive Protein NT-Pro-B Natriuret Pep Total Protein Albumin Urine WBC (Auto) Urine Creatinine 07/31/18 07/31/18 07/31/18 05:37 10:08 14:07 WBC RBC Hgb Hct MCV MCH RDW Seg Neuts % (Manual) Lymphocytes % (Manual) Nucleated RBC % Seg Neutrophils # Man Lymphocytes # (Manual) Monocytes # (Manual) PT INR D-Dimer Heparin Anti-Xa Level POC ABG pH POC ABG pCO2 POC ABG pO2 Sodium Potassium Chloride Carbon Dioxide BUN Creatinine Glucose POC Glucose 193 H 247 H 225 H Lactic Acid Calcium Phosphorus Total Bilirubin C-Reactive Protein NT-Pro-B Natriuret Pep Total Protein Albumin Urine WBC (Auto) Urine Creatinine 07/31/18 07/31/18 08/01/18 18:12 21:34 02:00 WBC RBC Hgb Hct MCV MCH RDW Seg Neuts % (Manual) Lymphocytes % (Manual) Nucleated RBC % Seg Neutrophils # Man Lymphocytes # (Manual) Monocytes # (Manual) PT INR D-Dimer Heparin Anti-Xa Level POC ABG pH POC ABG pCO2 POC ABG pO2 Sodium Potassium Chloride Carbon Dioxide BUN Creatinine Glucose POC Glucose 197 H 204 H 239 H Lactic Acid Calcium Phosphorus Total Bilirubin C-Reactive Protein NT-Pro-B Natriuret Pep Total Protein Albumin Urine WBC (Auto) Urine Creatinine 08/01/18 08/01/18 08/01/18 04:13 04:37 05:29 WBC RBC Hgb Hct MCV MCH RDW Seg Neuts % (Manual) Lymphocytes % (Manual) Nucleated RBC % Seg Neutrophils # Man Lymphocytes # (Manual) Monocytes # (Manual) PT INR D-Dimer Heparin Anti-Xa Level POC ABG pH 7.296 L POC ABG pCO2 81.9 H POC ABG pO2 190 H Sodium 150 H D Potassium Chloride Carbon Dioxide 37 H D BUN 37 H Creatinine 0.6 L Glucose 223 H POC Glucose 219 H Lactic Acid Calcium Phosphorus Total Bilirubin C-Reactive Protein NT-Pro-B Natriuret Pep Total Protein Albumin Urine WBC (Auto) Urine Creatinine 08/01/18 08/01/18 08/01/18 09:28 11:00 17:36 WBC RBC Hgb Hct MCV MCH RDW Seg Neuts % (Manual) Lymphocytes % (Manual) Nucleated RBC % Seg Neutrophils # Man Lymphocytes # (Manual) Monocytes # (Manual) PT INR D-Dimer Heparin Anti-Xa Level POC ABG pH POC ABG pCO2 61.2 H POC ABG pO2 69 L Sodium Potassium Chloride Carbon Dioxide BUN Creatinine Glucose POC Glucose 185 H 234 H Lactic Acid Calcium Phosphorus Total Bilirubin C-Reactive Protein NT-Pro-B Natriuret Pep Total Protein Albumin Urine WBC (Auto) Urine Creatinine 08/01/18 08/02/18 08/02/18 21:54 00:08 00:44 WBC RBC Hgb Hct MCV MCH RDW Seg Neuts % (Manual) Lymphocytes % (Manual) Nucleated RBC % Seg Neutrophils # Man Lymphocytes # (Manual) Monocytes # (Manual) PT INR D-Dimer Heparin Anti-Xa Level 0.77 H POC ABG pH POC ABG pCO2 66.4 H POC ABG pO2 64 L Sodium Potassium Chloride Carbon Dioxide BUN Creatinine Glucose POC Glucose 242 H Lactic Acid Calcium Phosphorus Total Bilirubin C-Reactive Protein NT-Pro-B Natriuret Pep Total Protein Albumin Urine WBC (Auto) Urine Creatinine 08/02/18 08/02/18 08/02/18 02:46 04:45 04:45 WBC RBC Hgb 10.7 L Hct 33.7 L MCV MCH RDW Seg Neuts % (Manual) Lymphocytes % (Manual) Nucleated RBC % Seg Neutrophils # Man Lymphocytes # (Manual) Monocytes # (Manual) PT INR D-Dimer Heparin Anti-Xa Level POC ABG pH POC ABG pCO2 POC ABG pO2 Sodium 152 H Potassium Chloride 108.1 H Carbon Dioxide 39 H BUN 38 H Creatinine 0.6 L Glucose 226 H POC Glucose 206 H Lactic Acid Calcium Phosphorus Total Bilirubin C-Reactive Protein NT-Pro-B Natriuret Pep Total Protein Albumin Urine WBC (Auto) Urine Creatinine 08/02/18 08/02/18 08/02/18 05:31 09:46 14:23 WBC RBC Hgb Hct MCV MCH RDW Seg Neuts % (Manual) Lymphocytes % (Manual) Nucleated RBC % Seg Neutrophils # Man Lymphocytes # (Manual) Monocytes # (Manual) PT INR D-Dimer Heparin Anti-Xa Level 0.91 H POC ABG pH POC ABG pCO2 POC ABG pO2 Sodium Potassium Chloride Carbon Dioxide BUN Creatinine Glucose POC Glucose 214 H 210 H Lactic Acid Calcium Phosphorus Total Bilirubin C-Reactive Protein NT-Pro-B Natriuret Pep Total Protein Albumin Urine WBC (Auto) Urine Creatinine 08/02/18 08/02/18 08/02/18 15:46 17:56 21:50 WBC RBC Hgb Hct MCV MCH RDW Seg Neuts % (Manual) Lymphocytes % (Manual) Nucleated RBC % Seg Neutrophils # Man Lymphocytes # (Manual) Monocytes # (Manual) PT INR D-Dimer Heparin Anti-Xa Level 0.99 H POC ABG pH POC ABG pCO2 POC ABG pO2 Sodium Potassium Chloride Carbon Dioxide BUN Creatinine Glucose POC Glucose 252 H 222 H Lactic Acid Calcium Phosphorus Total Bilirubin C-Reactive Protein NT-Pro-B Natriuret Pep Total Protein Albumin Urine WBC (Auto) Urine Creatinine 08/03/18 08/03/18 08/03/18 02:18 05:21 05:25 WBC RBC Hgb Hct MCV MCH RDW Seg Neuts % (Manual) Lymphocytes % (Manual) Nucleated RBC % Seg Neutrophils # Man Lymphocytes # (Manual) Monocytes # (Manual) PT INR D-Dimer Heparin Anti-Xa Level POC ABG pH POC ABG pCO2 POC ABG pO2 Sodium 151 H Potassium Chloride 107.3 H Carbon Dioxide 37 H BUN 42 H Creatinine 0.6 L Glucose 263 H POC Glucose 241 H 241 H Lactic Acid Calcium Phosphorus Total Bilirubin C-Reactive Protein NT-Pro-B Natriuret Pep Total Protein Albumin Urine WBC (Auto) Urine Creatinine 08/03/18 08/03/18 08/03/18 09:11 12:20 14:33 WBC RBC Hgb Hct MCV MCH RDW Seg Neuts % (Manual) Lymphocytes % (Manual) Nucleated RBC % Seg Neutrophils # Man Lymphocytes # (Manual) Monocytes # (Manual) PT INR D-Dimer Heparin Anti-Xa Level POC ABG pH POC ABG pCO2 POC ABG pO2 Sodium Potassium Chloride Carbon Dioxide BUN Creatinine Glucose POC Glucose 272 H 234 H 247 H Lactic Acid Calcium Phosphorus Total Bilirubin C-Reactive Protein NT-Pro-B Natriuret Pep Total Protein Albumin Urine WBC (Auto) Urine Creatinine 08/03/18 08/03/18 08/04/18 16:48 21:21 01:56 WBC RBC Hgb Hct MCV MCH RDW Seg Neuts % (Manual) Lymphocytes % (Manual) Nucleated RBC % Seg Neutrophils # Man Lymphocytes # (Manual) Monocytes # (Manual) PT INR D-Dimer Heparin Anti-Xa Level POC ABG pH POC ABG pCO2 POC ABG pO2 Sodium Potassium Chloride Carbon Dioxide BUN Creatinine Glucose POC Glucose 180 H 189 H Lactic Acid Calcium Phosphorus Total Bilirubin C-Reactive Protein 2.30 H NT-Pro-B Natriuret Pep Total Protein Albumin Urine WBC (Auto) Urine Creatinine 08/04/18 08/04/18 08/04/18 01:58 05:05 05:05 WBC 25.5 H RBC 3.31 L Hgb 10.8 L Hct 34.1 L MCV 103 H MCH 33 H RDW 16.0 H Seg Neuts % (Manual) Lymphocytes % (Manual) 8.0 L Nucleated RBC % 2.0 H Seg Neutrophils # Man 16.3 H Lymphocytes # (Manual) Monocytes # (Manual) 1.0 H PT INR D-Dimer Heparin Anti-Xa Level 0.79 H POC ABG pH POC ABG pCO2 POC ABG pO2 Sodium 148 H Potassium Chloride Carbon Dioxide 36 H BUN 35 H Creatinine 0.6 L Glucose 160 H POC Glucose Lactic Acid Calcium Phosphorus Total Bilirubin C-Reactive Protein NT-Pro-B Natriuret Pep Total Protein Albumin Urine WBC (Auto) Urine Creatinine 08/04/18 08/04/18 08/04/18 05:24 05:33 08:46 WBC RBC Hgb Hct MCV MCH RDW Seg Neuts % (Manual) Lymphocytes % (Manual) Nucleated RBC % Seg Neutrophils # Man Lymphocytes # (Manual) Monocytes # (Manual) PT INR D-Dimer Heparin Anti-Xa Level 0.76 H POC ABG pH POC ABG pCO2 65.7 H POC ABG pO2 63 L Sodium Potassium Chloride Carbon Dioxide BUN Creatinine Glucose POC Glucose 159 H Lactic Acid Calcium Phosphorus Total Bilirubin C-Reactive Protein NT-Pro-B Natriuret Pep Total Protein Albumin Urine WBC (Auto) Urine Creatinine 08/04/18 08/04/18 08/04/18 09:12 15:38 18:20 WBC RBC Hgb Hct MCV MCH RDW Seg Neuts % (Manual) Lymphocytes % (Manual) Nucleated RBC % Seg Neutrophils # Man Lymphocytes # (Manual) Monocytes # (Manual) PT INR D-Dimer Heparin Anti-Xa Level POC ABG pH POC ABG pCO2 POC ABG pO2 Sodium Potassium Chloride Carbon Dioxide BUN Creatinine Glucose POC Glucose 140 H 267 H 252 H Lactic Acid Calcium Phosphorus Total Bilirubin C-Reactive Protein NT-Pro-B Natriuret Pep Total Protein Albumin Urine WBC (Auto) Urine Creatinine 08/04/18 08/05/18 08/05/18 21:17 02:51 04:36 WBC RBC Hgb Hct MCV MCH RDW Seg Neuts % (Manual) Lymphocytes % (Manual) Nucleated RBC % Seg Neutrophils # Man Lymphocytes # (Manual) Monocytes # (Manual) PT INR D-Dimer Heparin Anti-Xa Level POC ABG pH POC ABG pCO2 POC ABG pO2 Sodium Potassium Chloride Carbon Dioxide BUN Creatinine Glucose POC Glucose 181 H 240 H 255 H Lactic Acid Calcium Phosphorus Total Bilirubin C-Reactive Protein NT-Pro-B Natriuret Pep Total Protein Albumin Urine WBC (Auto) Urine Creatinine 08/05/18 08/05/18 08/05/18 04:55 10:21 12:39 WBC 21.8 H RBC 3.18 L Hgb 10.3 L Hct 32.6 L MCV 103 H MCH 33 H RDW 16.3 H Seg Neuts % (Manual) 88.0 H Lymphocytes % (Manual) 4.0 L Nucleated RBC % Seg Neutrophils # Man 19.2 H Lymphocytes # (Manual) 0.9 L Monocytes # (Manual) PT INR D-Dimer Heparin Anti-Xa Level POC ABG pH 7.506 H POC ABG pCO2 56.0 H POC ABG pO2 63 L Sodium Potassium Chloride Carbon Dioxide BUN Creatinine Glucose POC Glucose 227 H Lactic Acid Calcium Phosphorus Total Bilirubin C-Reactive Protein NT-Pro-B Natriuret Pep Total Protein Albumin Urine WBC (Auto) Urine Creatinine 08/05/18 08/05/18 08/05/18 12:39 14:10 17:30 WBC RBC Hgb Hct MCV MCH RDW Seg Neuts % (Manual) Lymphocytes % (Manual) Nucleated RBC % Seg Neutrophils # Man Lymphocytes # (Manual) Monocytes # (Manual) PT INR D-Dimer Heparin Anti-Xa Level < 0.10 L POC ABG pH POC ABG pCO2 POC ABG pO2 Sodium Potassium Chloride 96.8 L Carbon Dioxide 38 H BUN 36 H Creatinine 0.6 L Glucose 218 H POC Glucose 221 H Lactic Acid Calcium Phosphorus Total Bilirubin C-Reactive Protein NT-Pro-B Natriuret Pep Total Protein Albumin Urine WBC (Auto) Urine Creatinine 08/05/18 08/05/18 08/06/18 18:32 23:32 02:26 WBC RBC Hgb Hct MCV MCH RDW Seg Neuts % (Manual) Lymphocytes % (Manual) Nucleated RBC % Seg Neutrophils # Man Lymphocytes # (Manual) Monocytes # (Manual) PT INR D-Dimer Heparin Anti-Xa Level POC ABG pH POC ABG pCO2 POC ABG pO2 Sodium Potassium Chloride Carbon Dioxide BUN Creatinine Glucose POC Glucose 253 H 215 H 227 H Lactic Acid Calcium Phosphorus Total Bilirubin C-Reactive Protein NT-Pro-B Natriuret Pep Total Protein Albumin Urine WBC (Auto) Urine Creatinine 08/06/18 08/06/18 08/06/18 05:17 05:17 05:32 WBC 18.9 H RBC 3.06 L Hgb 10.2 L Hct 31.3 L MCV 102 H MCH 33 H RDW 16.1 H Seg Neuts % (Manual) Lymphocytes % (Manual) Nucleated RBC % Seg Neutrophils # Man Lymphocytes # (Manual) Monocytes # (Manual) PT INR D-Dimer Heparin Anti-Xa Level POC ABG pH 7.468 H POC ABG pCO2 59.5 H POC ABG pO2 64 L Sodium Potassium Chloride Carbon Dioxide 37 H BUN 37 H Creatinine 0.5 L Glucose 226 H POC Glucose Lactic Acid Calcium Phosphorus Total Bilirubin C-Reactive Protein NT-Pro-B Natriuret Pep Total Protein Albumin Urine WBC (Auto) Urine Creatinine Allied health notes reviewed: nursing
--- NOTE | 2018-08-06 09:37 | Progress Note ---
Assessment and Plan 1. Acute kidney injury: Likely Vasomotor / hemodynamic CARLEE in the setting of A.fib with RVR. Renal function is better. 2. FEN: Hypernatremia, improved. Continue water flushes. Monitor. 3. A.fib: On Cardizem. 4. Respiratory failure: On vent. 5. Hematuria: S/p Cysto. Subjective Date of service: 08/06/18 Principal diagnosis: AFib Interval history: Patient was seen and examined at the bedside. Objective - Vital Signs Vital signs: Vital Signs - 12hr 08/05/18 08/05/18 08/05/18 22:00 22:20 22:30 Temperature Pulse Rate 67 76 66 Pulse Rate [ Bilateral] Pulse Rate [ From Monitor] Respiratory 26 H 22 Rate Respiratory Rate [Bilateral ] Blood Pressure 116/59 129/66 136/58 O2 Sat by Pulse 93 94 Oximetry 08/05/18 08/05/18 08/05/18 23:00 23:19 23:30 Temperature Pulse Rate 74 72 71 Pulse Rate [ Bilateral] Pulse Rate [ From Monitor] Respiratory 19 18 Rate Respiratory Rate [Bilateral ] Blood Pressure 139/55 123/59 128/62 O2 Sat by Pulse 93 94 94 Oximetry 08/06/18 08/06/18 08/06/18 00:00 00:30 01:00 Temperature 98.3 F Pulse Rate 84 85 82 Pulse Rate [ Bilateral] Pulse Rate [ 86 From Monitor] Respiratory 30 H 33 H 19 Rate Respiratory Rate [Bilateral ] Blood Pressure 134/63 151/46 128/60 O2 Sat by Pulse 93 91 91 Oximetry 08/06/18 08/06/18 08/06/18 01:09 01:30 02:00 Temperature Pulse Rate 86 71 77 Pulse Rate [ Bilateral] Pulse Rate [ From Monitor] Respiratory 22 19 Rate Respiratory Rate [Bilateral ] Blood Pressure 145/75 119/56 121/56 O2 Sat by Pulse 92 92 Oximetry 08/06/18 08/06/18 08/06/18 02:30 03:00 03:30 Temperature Pulse Rate 75 79 70 Pulse Rate [ Bilateral] Pulse Rate [ From Monitor] Respiratory 25 H 17 21 Rate Respiratory Rate [Bilateral ] Blood Pressure 125/62 112/56 120/55 O2 Sat by Pulse 93 95 94 Oximetry 08/06/18 08/06/18 08/06/18 04:00 04:05 04:30 Temperature 98.5 F Pulse Rate 78 75 72 Pulse Rate [ Bilateral] Pulse Rate [ 76 From Monitor] Respiratory 18 21 Rate Respiratory Rate [Bilateral ] Blood Pressure 141/54 141/54 123/55 O2 Sat by Pulse 92 93 93 Oximetry 08/06/18 08/06/18 08/06/18 05:00 05:30 06:00 Temperature Pulse Rate 75 74 72 Pulse Rate [ Bilateral] Pulse Rate [ From Monitor] Respiratory 25 H 26 H 25 H Rate Respiratory Rate [Bilateral ] Blood Pressure 124/57 125/58 118/59 O2 Sat by Pulse 93 92 91 Oximetry 08/06/18 08/06/18 08/06/18 06:30 07:00 07:30 Temperature Pulse Rate 70 74 82 Pulse Rate [ Bilateral] Pulse Rate [ From Monitor] Respiratory 24 23 26 H Rate Respiratory Rate [Bilateral ] Blood Pressure 124/60 136/64 150/63 O2 Sat by Pulse 92 92 91 Oximetry 08/06/18 08/06/18 08/06/18 07:58 08:00 08:30 Temperature 98.9 F Pulse Rate 94 H 77 81 Pulse Rate [ Bilateral] Pulse Rate [ From Monitor] Respiratory 31 H 22 Rate Respiratory Rate [Bilateral ] Blood Pressure 137/71 128/57 142/58 O2 Sat by Pulse 92 90 Oximetry 08/06/18 08/06/18 08/06/18 09:00 09:21 09:23 Temperature Pulse Rate 75 75 Pulse Rate [ 77 75 Bilateral] Pulse Rate [ From Monitor] Respiratory 25 H Rate Respiratory 29 H 13 Rate [Bilateral ] Blood Pressure 128/57 138/61 O2 Sat by Pulse 90 97 Oximetry - General Appearance General appearance: well-developed, appears stated age, intubated, other (on vent, agitated) EENT: ATNC Neck: supple Respiratory: Present: Clear to Ascultation Cardiology: regular, S1S2, no murmurs Gastrointestinal: normoactive bowel sounds, no tenderness, no distended Integumentary: no rash, warm and dry Neurologic: other (not following any command) Musculoskeletal: other (trace LE edema noted) - Lab 08/06/18 05:17 08/06/18 05:17 Most recent lab results Calcium 9.4 mg/dL (8.4-10.2) 08/06/18 05:17 Phosphorus 2.80 mg/dL (2.5-4.5) 08/06/18 05:17 Magnesium 2.30 mg/dL (1.7-2.3) 08/06/18 05:17 Urine Creatinine 72.3 mg/dL (0.1-20.0) H 07/29/18 09:24 Urine Sodium 12 mmol/L 07/29/18 09:24 Medications & Allergies - Medications Allergies/Adverse Reactions: Allergies No Known Allergies Allergy (Verified 12/12/13 06:46) Home Medications: Home Medications Medication Instructions Recorded Confirmed Last Taken Type Pravastatin Sodium 40 mg PO DAILY 12/12/13 07/27/18 07/27/18 History Clopidogrel [Plavix] 75 mg PO DAILY #30 tablet 04/03/15 07/27/18 07/27/18 Rx amLODIPine [Norvasc] 10 mg PO DAILY #30 tablet 04/03/15 07/27/18 07/27/18 Rx Fluticasone/Salmeterol [Advair 1 puff IH BID 12/31/15 07/27/18 07/27/18 History Diskus 250-50 mcg] ALBUTEROL Inhaler (OR & NICU) 2 puff IH QID PRN 07/27/18 07/27/18 Unknown History [Proair] Aspirin [Aspirin BABY CHEW TAB] 81 mg PO DAILY 07/27/18 07/27/18 07/27/18 History Cyanocobalamin (Vitamin B-12) 2,500 mcg PO DAILY 07/27/18 07/27/18 07/27/18 History [Vitamin B12] Sumpter-3S/Dha/Epa/Fish Oil/D3 [Fish 1 each PO DAILY 07/27/18 07/27/18 07/27/18 History [id number]-Vit D Softgel] Active Medications: Generic Name Dose Route Start Last Admin Trade Name Freq PRN Reason Stop Dose Admin Acetaminophen 650 mg 07/28/18 04:34 07/28/18 05:29 Tylenol VT 650 mg Q4H PRN Administration Fever >101 Amiodarone HCl 200 mg 07/29/18 14:00 08/05/18 22:10 Cordarone PO 200 mg BID IGNACIO Administration Lipase/Protease/Amylase 1 each 07/28/18 13:[address] 10,500 Unit FEEDTUBE PRN PRN For Clogged Feeding Tube Arformoterol Tartrate 15 mcg 07/27/18 20:00 08/06/18 09:01 Brovana Nebu IH 15 mcg Q12HRT IGNACIO Administration Budesonide 0.5 mg 07/27/18 20:00 08/06/18 09:01 Pulmicort IH 0.5 mg Q12HRT IGNACIO Administration Clopidogrel Bisulfate 75 mg 07/28/18 10:00 08/05/18 10:37 Plavix PO 75 mg DAILY IGNACIO Administration Cyanocobalamin 2,500 mcg 07/28/18 10:00 08/05/18 10:36 Vitamin B-12 PO 2,500 mcg QDAY IGNACIO Administration Diltiazem HCl 60 mg 08/05/18 12:00 08/06/18 07:58 Cardizem PO 60 mg Q4H IGNACIO Administration Famotidine 20 mg 08/01/18 10:00 08/05/18 22:10 Pepcid PO 20 mg BID IGNACIO Administration Hydrophilic Ointment 1 applic 07/27/18 20:09 Vaseline Lip Therapy TP Q2HR PRN Dry Lips Propofol 1,000 mg in 100 mls @ 2.531 mls/hr 07/27/18 21:00 08/06/18 05:50 Diprivan 10 Mg/Ml IV 8 mcg/kg/min TITR IGNACIO 4.05 mls/hr Titration Protocol 5 MCG/KG/MIN Cefepime HCl 2 gm in 100 mls @ 200 mls/hr 08/01/18 14:00 08/05/18 22:00 Maxipime/Ns 2 Gm/100 Ml IV 200 mls/hr Q12HR IGNACIO Administration Protocol Fentanyl Citrate 2,000 mcg in 100 mls @ 2.285 mls/hr 08/01/18 14:00 08/06/18 07:59 Fentanyl Drip Premix IV 1 mcg/kg/hr TITR IGNACIO 4.57 mls/hr Administration Protocol 0.5 MCG/KG/HR Insulin Glargine 20 units 08/05/18 22:00 08/05/18 22:10 Lantus SUB-Q 20 units QHS IGNACIO Administration Insulin Human Lispro 0 unit 07/29/18 07:00 08/06/18 07:58 Humalog SUB-Q 2 unit Q4HR [facility] Administration Protocol Multi-Ingred Cream/Lotion/Oil/Oint 1 applic 07/27/18 20:09 Artificial Tears Ophth Oint OU Q4HR PRN Dry Eye(s) Pravastatin Sodium 40 mg 07/28/18 10:00 08/05/18 10:38 Pravachol PO 40 mg DAILY IGNACIO Administration Prednisone 20 mg 08/06/18 10:00 Deltasone PO 08/06/18 10:01 QDAY IGNACIO Prednisone 10 mg 08/07/18 10:00 Deltasone PO 08/07/18 10:01 QDAY IGNACIO Prednisone 5 mg 08/08/18 10:00 Deltasone PO 08/08/18 10:01 QDAY IGNACIO Quetiapine Fumarate 100 mg 08/03/18 10:00 08/06/18 01:11 Seroquel PO 100 mg BID IGNACIO Administration Simple Syrup 15 ml 07/28/18 13:57 Simple Syrup FEEDTUBE PRN PRN Hypoglycemia Simple Syrup 30 ml 07/28/18 13:57 Simple Syrup FEEDTUBE PRN PRN Hypoglycemia Sodium Bicarbonate 325 mg 07/28/18 13:57 Sodium Bicarbonate FEEDTUBE PRN PRN For Clogged Feeding Tube Sodium Chloride 10 ml 07/27/18 22:00 08/05/18 22:00 Sodium Chloride Flush Syringe 10 Ml IV 10 ml BID IGNACIO Administration Sodium Chloride 10 ml 07/27/18 15:59 Sodium Chloride Flush Syringe 10 Ml IV PRN PRN LINE FLUSH
[2018-08-06] MEDS ORDERED: DELTASONE PO SCH (10:00)
[2018-08-06] MEDS: CORDARONE PO SCH ×2 (10:23→22:00)
[2018-08-06] MEDS: PEPCID PO SCH ×2 (10:23→22:00)
[2018-08-06] MEDS: VITAMIN B-12 PO SCH (10:23)
[2018-08-06] MEDS: PLAVIX PO SCH (10:23)
[2018-08-06] MEDS: SODIUM CHLORIDE FLUSH SYRINGE 10 ML IV SCH ×2 (10:25→22:00)
[2018-08-06] MEDS: PRAVACHOL PO SCH (10:25)
[2018-08-06] MEDS: MAXIPIME/NS 2 GM/100 ML 2 GM/100 ML BAG IV SCH ×2 (10:43→22:00)
--- NOTE | 2018-08-06 15:25 | Progress Note ---
Assessment and Plan Present management. ventilatory support.Anticoagulation (NOAC) if there is no more hematuria. - Patient Problems (1) CARLEE (acute kidney injury) Current Visit: Yes Status: Resolved (2) Acidosis Current Visit: Yes Status: Resolved (3) Acute respiratory failure Current Visit: Yes Status: Acute Qualifiers: Respiratory failure complication: hypoxia Qualified Code(s): J96.01 - Acute respiratory failure with hypoxia (4) Atrial fibrillation Current Visit: Yes Status: Resolved Qualifiers: Atrial fibrillation type: persistent Qualified Code(s): I48.1 - Persistent atrial fibrillation (5) CHF (congestive heart failure) Current Visit: Yes Status: Acute Qualifiers: Heart failure type: systolic Heart failure chronicity: acute Qualified Code(s): I50.21 - Acute systolic (congestive) heart failure (6) Hematuria Current Visit: Yes Status: Resolved (7) Lactic acid acidosis Current Visit: Yes Status: Resolved (8) Pneumonia Current Visit: Yes Status: Acute (9) SIRS (systemic inflammatory response syndrome) Current Visit: Yes Status: Acute (10) COPD (chronic obstructive pulmonary disease) Current Visit: Yes Status: Chronic (11) Hyperlipemia Current Visit: Yes Status: Chronic Qualifiers: Hyperlipidemia type: Mixed hyperlipidemia (12) Hypertension Current Visit: Yes Status: Chronic Qualifiers: Hypertension type: essential hypertension Qualified Code(s): I10 - Essential (primary) hypertension (13) Nonobstructive atherosclerosis of coronary artery Current Visit: Yes Status: Chronic (14) Peripheral vascular disease Current Visit: Yes Status: Chronic (15) Acute blood loss anemia Current Visit: No Status: Acute (16) COPD exacerbation Current Visit: No Status: Acute (17) Cavitary pneumonia Current Visit: No Status: Acute (18) Respiratory failure Current Visit: No Status: Acute (19) S/P vascular surgery Current Visit: No Status: Acute (20) Atherosclerosis of [place] arteries of the extremities with intermittent claudication Current Visit: No Status: Chronic Subjective Date of service: 08/06/18 Principal diagnosis: AFib Interval history: Intubated,sedated. Rhythm: NSR with frequent APCs. Hematuria - clearing. Objective Vital Signs Temp Pulse Pulse Pulse Resp Resp BP 08/06/18 15:03 83 131/62 08/06/18 13:33 86 152/68 08/06/18 12:30 84 28 H 138/63 08/06/18 12:00 98.9 F 77 76 27 H 133/60 08/06/18 11:30 76 19 114/55 08/06/18 11:00 85 31 H 132/57 08/06/18 10:30 79 28 H 158/69 08/06/18 10:00 74 11 L 114/61 08/06/18 09:30 78 9 L 122/64 08/06/18 09:23 75 13 08/06/18 09:21 75 138/61 08/06/18 09:00 75 77 25 H 29 H 128/57 08/06/18 08:30 81 22 142/58 08/06/18 08:00 98.9 F 77 76 31 H 128/57 08/06/18 07:58 94 H 137/71 08/06/18 07:30 82 26 H 150/63 08/06/18 07:00 74 23 136/64 08/06/18 06:30 70 24 124/60 08/06/18 06:00 72 25 H 118/59 08/06/18 05:30 74 26 H 125/58 08/06/18 05:00 75 25 H 124/57 08/06/18 04:30 72 21 123/55 08/06/18 04:05 75 141/54 08/06/18 04:00 98.5 F 78 76 18 141/54 08/06/18 03:30 70 21 120/55 08/06/18 03:00 79 17 112/56 08/06/18 02:30 75 25 H 125/62 08/06/18 02:00 77 19 121/56 08/06/18 01:30 71 22 119/56 08/06/18 01:09 86 145/75 08/06/18 01:00 82 19 128/60 08/06/18 00:30 85 33 H 151/46 08/06/18 00:00 98.3 F 84 86 30 H 134/63 08/05/18 23:30 71 18 128/62 18 23:19 72 123/59 18 23:00 74 19 139/55 18 22:30 66 22 136/58 08/05/18 22:20 76 129/66 08/05/18 22:00 67 26 H 116/59 18 21:30 64 22 116/62 12/21/18 21:00 64 22 112/58 08/05/18 20:30 64 24 113/56 08/05/18 20:05 68 19 08/05/18 20:00 97.1 F L 67 66 12 102/54 18 19:53 66 66 19 111/57 08/05/18 19:38 64 20 110/54 18 19:30 66 21 110/54 08/05/18 19:00 75 28 H 148/70 18 18:37 74 136/65 18 18:30 71 20 136/65 18 18:00 74 24 144/68 08/05/18 17:30 79 27 H 154/71 08/05/18 17:00 71 24 156/69 08/05/18 16:40 69 152/70 08/05/18 16:30 66 23 152/70 08/05/18 16:14 67 21 128/65 08/05/18 16:00 98.9 F 86 20 Pulse Ox 08/06/18 15:03 08/06/18 13:33 93 08/06/18 12:30 91 08/06/18 12:00 92 08/06/18 11:30 91 08/06/18 11:00 90 08/06/18 10:30 93 08/06/18 10:00 94 08/06/18 09:30 93 08/06/18 09:23 08/06/18 09:21 97 08/06/18 09:00 90 08/06/18 08:30 90 08/06/18 08:00 92 08/06/18 07:58 18 07:30 91 08/06/18 07:00 92 08/06/18 06:30 92 08/06/18 06:00 91 08/06/18 05:30 92 08/06/18 05:00 93 08/06/18 04:30 93 08/06/18 04:05 93 08/06/18 04:00 92 08/06/18 03:30 94 08/06/18 03:00 95 08/06/18 02:30 93 08/06/18 02:00 92 08/06/18 01:30 92 08/06/18 01:09 08/06/18 01:00 91 08/06/18 00:30 91 08/06/18 00:00 93 08/05/18 23:30 94 08/05/18 23:19 94 08/05/18 23:00 93 08/05/18 22:30 94 08/05/18 22:20 08/05/18 22:00 93 08/05/18 21:30 93 08/05/18 21:00 93 08/05/18 20:30 93 08/05/18 20:05 08/05/18 20:00 96 08/05/18 19:53 95 08/05/18 19:38 94 08/05/18 19:30 93 08/05/18 19:00 95 08/05/18 18:37 08/05/18 18:30 93 08/05/18 18:00 93 08/05/18 17:30 90 08/05/18 17:00 89 08/05/18 16:40 93 08/05/18 16:30 08/05/18 16:14 98 08/05/18 16:00 93 - Physical Examination General: Other (intubated, sedated) HEENT: Positive: EOMI, Normocephaly, Mucus Membranes Moist Neck: Positive: neck supple, trachea midline Cardiac: Positive: Irregularly Regular, Other (ApCs) Lungs: Positive: clear to auscultation, No Wheeze, Rales, Rhonchi Neuro: Positive: Other (intubated, sedated) Abdomen: Positive: Soft, Active Bowel Sounds Skin: Negative: Rash, Wound Musculoskeletal: No Fluid Collection, No Pain, Normal Range of Motion Extremities: Present: upper extr. pulses, lower extr. pulses. Absent: edema - Labs and Meds CBC 08/06/18 Range/Units 05:17 WBC 18.9 H (4.5-11.0) K/mm3 RBC 3.06 L (3.65-5.03) M/mm3 Hgb 10.2 L (11.8-15.2) gm/dl Hct 31.3 L (35.5-45.6) % Plt Count 237 (140-440) K/mm3 Comprehensive Metabolic Panel 08/06/18 Range/Units 05:17 Sodium 142 (137-145) mmol/L Potassium 4.1 (3.6-5.0) mmol/L Chloride 98.0 (98-107) mmol/L Carbon Dioxide 37 H (22-30) mmol/L BUN 37 H (9-20) mg/dL Creatinine 0.5 L (0.8-1.5) mg/dL Glucose 226 H (75-100) mg/dL Calcium 9.4 (8.4-10.2) mg/dL - Imaging and Cardiology EKG: report reviewed, image reviewed Echo: report reviewed ( 07/27/2018 EF 60-65%, asymmetric septal hypertrophy, mild TR. 05/2017 showed EF 55-60%, grade 1 diastolic dysfunction, mild TR, RVSP 22mmHg. 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 Treat medically. ) - Telemetry EKG Rhythm: Sinus Rhythm - EKG Supraventricular dysrhythmia: atrial premature complexe - Allied health notes Allied health notes reviewed: nursing
--- NOTE | 2018-08-06 16:12 | Progress Note ---
Assessment and Plan Assessment and plan: Sepsis; - Blood cultures reveal Streptococcus anginosus. - ID consulted and change antibiotics to cefepime to be completed on08/08 Left lower lobe pneumonia; - Continue antibiotics. - Sputum culture revealed Pseudomonas and staph Acute hypoxemic respiratory failure - Continue on mechanical ventilation and weaning per pulmonary - CXR showed vascular congestion Atrial fibrillation - Continue amiodarone and diltiazem. - Cardiology following. - Check echocardiogram. Acute renal failure - Etiology likely secondary to sepsis/ATN. - Renal ultrasound unremarkable. COPD exacerbation. - Continue bronchodilators/nebulizers. - IV steroids. Hypertension. - Resume antihypertensive medications as needed. Hyperlipidemia. - Peripheral vascular disease. The high probability of a clinically significant, sudden or life threatening deterioration of the [respiratory] system(s) required my full and direct attention, intervention and personal management. The aggregate critical care time was [32] minutes. This time is in addition to time spent performing reported procedures but includes the following: [x] Data Review and interpretation [x] Patient assessment and monitoring of vital signs [x] Documentation [x] Medication orders and management History Interval history: 73 YO Male with H/O COPD, PVD, HTN, HLD, Seizure Disorder, Skin Cancer presents to ED for evaluation. Pt states that he has experienced shortness and chest palpitations over the past 2 days with worsening symptoms over the past 1 day. Pt acknowledges decreased exercise tolerance, as well as dyspnea on exertion. Pt was seen and evaluated by his public health aide today and was sent to [facility] ED for further care and evaluation. Pt denies fever, chills, leg swelling, calf pain, CP with deep breathing, hemoptysis, Prolonged air/car travel, or immobility, Back Pain, Syncope, Lightheadedness, recent ill contacts, unintentional weight loss, night sweats, or bone pain. Pt seen and evaluated in ED and found to have Atrial Fib with RVR refractory to cardizem drip, but improved with Amiodarone Drip, Acute Hypoxemic Respiratory Failure, SIRS. Pt admitted to ICU. The patient later after admission had further decompensation with respiratory distress. Patient reportedly was satting 60-70% on a nonrebreather and had to be emergently intubated. The patient remains intubated on mechanical ventilation History Interval history: Patient was seen and evaluated this morning, patient was not able to communicate. Intubated and on mechanical ventilation. Hospitalist Physical - Physical exam Narrative exam: Patient is intubated and on mechanical ventilation. The patient is obese. Vital signs as documented. Head exam is unremarkable. No scleral icterus . Neck is without jugular venous distension, thyromegaly, or carotid bruits. Lungs are clear to auscultation. Cardiac exam reveals regular rate and Rhythm. Abdominal exam reveals normal bowel sounds. Extremities are nonedematous and both femoral and pedal pulses are normal. 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 - Constitutional Vitals: Temp Pulse Resp BP Pulse Ox 98.9 F 83 28 H 131/62 93 08/06/18 12:00 08/06/18 15:03 08/06/18 12:30 08/06/18 15:03 08/06/18 13:33 General appearance: Present: no acute distress, other (intubated on mechanical ventilation) Results - Labs CBC & Chem 7: 08/06/18 05:17 08/06/18 05:17 Labs: Laboratory Last Values WBC 18.9 K/mm3 (4.5-11.0) H 08/06/18 05:17 RBC 3.06 M/mm3 (3.65-5.03) L 08/06/18 05:17 Hgb 10.2 gm/dl (11.8-15.2) L 08/06/18 05:17 Hct 31.3 % (35.5-45.6) L 08/06/18 05:17 MCV 102 fl (84-94) H 08/06/18 05:17 MCH 33 pg (28-32) H 08/06/18 05:17 MCHC 33 % (32-34) 08/06/18 05:17 RDW 16.1 % (13.2-15.2) H 08/06/18 05:17 Plt Count 237 K/mm3 (140-440) 08/06/18 05:17 Add Manual Diff Complete 08/05/18 12:39 Total Counted 100 08/05/18 12:39 Seg Neutrophils % Jumpbasting Armhole Baster 08/05/18 12:39 Seg Neuts % (Manual) 88.0 % (40.0-70.0) H 08/05/18 12:39 Band Neutrophils % 2.0 % 08/05/18 12:39 Lymphocytes % (Manual) 4.0 % (13.4-35.0) L 08/05/18 12:39 Reactive Lymphs % (Man) 0 % 08/05/18 12:39 Monocytes % (Manual) 3.0 % (0.0-7.3) 08/05/18 12:39 Eosinophils % (Manual) 0 % (0.0-4.3) 08/05/18 12:39 Basophils % (Manual) 0 % (0.0-1.8) 08/05/18 12:39 Metamyelocytes % 2.0 % 08/05/18 12:39 Myelocytes % 1.0 % 08/05/18 12:39 Promyelocytes % 0 % 08/05/18 12:39 Blast Cells % 0 % 08/05/18 12:39 Nucleated RBC % Not Reportable 08/05/18 12:39 Seg Neutrophils # Man 19.2 K/mm3 (1.8-7.7) H 08/05/18 12:39 Band Neutrophils # 0.4 K/mm3 08/05/18 12:39 Lymphocytes # (Manual) 0.9 K/mm3 (1.2-5.4) L 08/05/18 12:39 Abs React Lymphs (Man) 0.0 K/mm3 08/05/18 12:39 Monocytes # (Manual) 0.7 K/mm3 (0.0-0.8) 08/05/18 12:39 Eosinophils # (Manual) 0.0 K/mm3 (0.0-0.4) 08/05/18 12:39 Basophils # (Manual) 0.0 K/mm3 (0.0-0.1) 08/05/18 12:39 Metamyelocytes # 0.4 K/mm3 08/05/18 12:39 Myelocytes # 0.2 K/mm3 08/05/18 12:39 Promyelocytes # 0.0 K/mm3 08/05/18 12:39 Blast Cells # 0.0 K/mm3 08/05/18 12:39 Pathologist Review 07/28/18 06:01 WBC Morphology Not Reportable 08/05/18 12:39 Hypersegmented Neuts Not Reportable 08/05/18 12:39 Hyposegmented Neuts Not Reportable 08/05/18 12:39 Hypogranular Neuts Not Reportable 08/05/18 12:39 Smudge Cells Not Reportable 08/05/18 12:39 Toxic Granulation Not Reportable 08/05/18 12:39 Toxic Vacuolation Not Reportable 08/05/18 12:39 Dohle Bodies Not Reportable 08/05/18 12:39 Pelger-Huet Anomaly Not Reportable 08/05/18 12:39 Janiya Rods Not Reportable 08/05/18 12:39 Platelet Estimate Consistent w auto 08/05/18 12:39 Clumped Platelets Not Reportable 08/05/18 12:39 Plt Clumps, EDTA Not Reportable 08/05/18 12:39 Large Platelets Not Reportable 08/05/18 12:39 Giant Platelets Not Reportable 08/05/18 12:39 Platelet Satelliting Not Reportable 08/05/18 12:39 Plt Morphology Comment Not Reportable 08/05/18 12:39 RBC Morphology Not Reportable 08/05/18 12:39 Dimorphic RBCs Not Reportable 08/05/18 12:39 Polychromasia Not Reportable 08/05/18 12:39 Hypochromasia 1+ 08/05/18 12:39 Poikilocytosis Not Reportable 08/05/18 12:39 Anisocytosis 1+ 08/05/18 12:39 Microcytosis Not Reportable 08/05/18 12:39 Macrocytosis 1+ 08/05/18 12:39 Spherocytes Not Reportable 08/05/18 12:39 Pappenheimer Bodies Not Reportable 08/05/18 12:39 Sickle Cells Not Reportable 08/05/18 12:39 Target Cells Few 08/05/18 12:39 Tear Drop Cells Not Reportable 08/05/18 12:39 Ovalocytes Not Reportable 08/05/18 12:39 Helmet Cells Not Reportable 08/05/18 12:39 Lr-[place] Bodies Not Reportable 08/05/18 12:39 [place] Rings Not Reportable 08/05/18 12:39 Armando Cells Not Reportable 08/05/18 12:39 Bite Cells Not Reportable 08/05/18 12:39 Crenated Cell Not Reportable 08/05/18 12:39 Elliptocytes Not Reportable 08/05/18 12:39 Acanthocytes (Spur) Not Reportable 08/05/18 12:39 Rouleaux Not Reportable 08/05/18 12:39 Hemoglobin C Crystals Not Reportable 08/05/18 12:39 Schistocytes Not Reportable 08/05/18 12:39 Malaria parasites Not Reportable 08/05/18 12:39 Jigar Bodies Not Reportable 08/05/18 12:39 Hem Pathologist Commnt No 08/05/18 12:39 PT 16.0 Sec. (12.2-14.9) H 07/27/18 17:09 INR 1.24 (0.87-1.13) H 07/27/18 17:09 APTT 31.9 Sec. (24.2-36.6) 07/27/18 17:09 D-Dimer 798.17 ng/mlDDU (0-234) H 07/27/18 15:52 Heparin Anti-Xa Level < 0.10 U.I./ml (0.3-0.7) L 08/05/18 17:30 POC ABG pH 7.468 (7.35-7.45) H 08/06/18 05:32 POC ABG pCO2 59.5 (35-45) H 08/06/18 05:32 POC ABG pO2 64 (80-105) L 08/06/18 05:32 POC ABG HCO3 43.1 08/06/18 05:32 POC ABG Total CO2 45 08/06/18 05:32 POC ABG O2 Sat 93 08/06/18 05:32 POC ABG Base Excess 19 08/06/18 05:32 FiO2 40 % 08/06/18 05:32 Sodium 142 mmol/L (137-145) 08/06/18 05:17 Potassium 4.1 mmol/L (3.6-5.0) 08/06/18 05:17 Chloride 98.0 mmol/L (98-107) 08/06/18 05:17 Carbon Dioxide 37 mmol/L (22-30) H 08/06/18 05:17 Anion Gap 11 mmol/L 08/06/18 05:17 BUN 37 mg/dL (9-20) H 08/06/18 05:17 Creatinine 0.5 mg/dL (0.8-1.5) L 08/06/18 05:17 Estimated GFR > 60 ml/min 08/06/18 05:17 BUN/Creatinine Ratio 74 % 08/06/18 05:17 Glucose 226 mg/dL (75-100) H 08/06/18 05:17 POC Glucose 229 (70-105) H 08/06/18 15:03 Lactic Acid 1.30 mmol/L (0.7-2.0) 08/03/18 16:48 Calcium 9.4 mg/dL (8.4-10.2) 08/06/18 05:17 Phosphorus 2.80 mg/dL (2.5-4.5) 08/06/18 05:17 Magnesium 2.30 mg/dL (1.7-2.3) 08/06/18 05:17 Total Bilirubin 1.30 mg/dL (0.1-1.2) H 07/27/18 12:59 AST 15 units/L (5-40) 07/27/18 12:59 ALT 16 units/L (7-56) 07/27/18 12:59 Alkaline Phosphatase 62 units/L (35-129) 07/27/18 12:59 Troponin T < 0.010 ng/mL (0.00-0.029) 07/27/18 12:59 C-Reactive Protein 2.30 mg/dL (0.00-1.30) H 08/03/18 16:48 NT-Pro-B Natriuret Pep 3913 pg/mL (0-900) H 07/27/18 12:59 Total Protein 6.2 g/dL (6.3-8.2) L 07/27/18 12:59 Albumin 3.6 g/dL (3.9-5) L 07/27/18 12:59 Albumin/Globulin Ratio 1.4 % 07/27/18 12:59 Triglycerides 142 mg/dL (2-149) 08/01/18 04:13 TSH 1.180 mlU/mL (0.270-4.200) 07/27/18 15:52 Free T4 1.28 ng/dL (0.76-1.46) 07/27/18 15:52 Urine Color Yellow (Yellow) 07/29/18 09:24 Urine Turbidity Cloudy (Clear) 07/29/18 09:24 Urine pH 5.0 (5.0-7.0) 07/29/18 09:24 Ur Specific [place] 1.017 (1.003-1.030) 07/29/18 09:24 Urine Protein 30 mg/dl mg/dL (Negative) 07/29/18 09:24 Urine Glucose (UA) Neg mg/dL (Negative) 07/29/18 09:24 Urine Ketones Neg mg/dL (Negative) 07/29/18 09:24 Urine Blood Mod (Negative) 07/29/18 09:24 Urine Nitrite Neg (Negative) 07/29/18 09:24 Urine Bilirubin Neg (Negative) 07/29/18 09:24 Urine Urobilinogen < 2.0 mg/dL (<2.0) 07/29/18 09:24 Ur Leukocyte Esterase Mod (Negative) 07/29/18 09:24 Urine WBC (Auto) 29.0 /HPF (0.0-6.0) H 07/29/18 09:24 Urine RBC (Auto) 7.0 /HPF (0.0-6.0) 07/29/18 09:24 U Epithel Cells (Auto) 2.0 /HPF (0-13.0) 07/29/18 09:24 Urine Bacteria (Auto) 1+ /HPF (Negative) 07/29/18 09:24 Urine Mucus Few /HPF 07/29/18 09:24 Urine Yeast (Budding) 1+ /HPF 07/29/18 09:24 Urine Creatinine 72.3 mg/dL (0.1-20.0) H 07/29/18 09:24 Urine Sodium 12 mmol/L 07/29/18 09:24 Random Vancomycin 9.2 ug/mL (0-40.0) 07/29/18 04:21 Nutrition/Malnutrition Assess - Dietary Evaluation Nutrition/Malnutrition Findings: Nutrition Notes Start: 07/28/18 10:54 Freq: Status: Active Protocol: Document 08/04/18 10:13 TW (Rec: 08/04/18 10:46 TW [id number]) Co-Sign 08/04/18 10:13 LP Nutrition Notes Initial or Follow up Reassessment Current Diagnoses Acute Kidney Injury COPD Sepsis Hypertension Heart Failure Respiratory Failure Other Pertinent Diagnosis Hx of Skin Cancer Current Diet Nepro at 50ml/hr Labs/Tests BUN: 35 Cr: 0.6 Medications Propofol at 2.53mL/hr (67 lipid kcal) Solumedrol Height 5 ft 8 in Weight 87.6 kg [place] Body Weight (lbs) 154.0 BMI 29.3 Weight change and time frame Wt. change noted. Subjective/Other Information Nepro infusing at goal rate of 50mL/hr. Per RN, pt. tolerating TF well. Percent of energy/protein needs met: 100%/69% Burn Absent Trauma Absent #1 Nutrition Diagnoses Inadequate oral intake Diagnosis Progress(for reassessment Continues documentation) Is patient on ventilator? Yes Is Patient Ambulatory and/or Out of Bed No REE-([facility]-confined to bed) 0869.348 Calculation Used for Recommendations [facility] Additional Notes protein (2g/kg IBW): 140g daily fluid: 1mL/kcal Nutrition Intervention Change Diet Order: Continue TF Nutrition Support: Nepro at 50mL/hr 250 mL free water flush q4h or per MD. Kcal 2,160 Protein (gm) 97 Fluid (mL) 872 Goal #1 TF tolerance and rate Goal #2 Meet at least 80% of kcal needs and 80-100% of protein needs. Anticipated Discharge Needs: unable to determine at this time Follow-Up By: 08/10/18 Additional Comments F/U for stable TF
--- NOTE | 2018-08-06 16:12 | Consultation ---
History of Present Illness Consult date: 08/06/18 Reason for consult: other (trach/PEG eval) Requesting physician: LATONYA CORDOBA Chief complaint: Respiratory Failure - History of present illness History of present illness: 73yo M with multiple medical problems was admitted for SOB. Pt ultimately required intubation. He is unable to be extubated safely at this time. We are being asked to see the patient for trach/PEG placement. Past History Past Medical History: CAD, COPD, hypertension, hyperlipidemia, PVD Past Surgical History: Other (Right leg surgery) Social history: , lives with family. denies: smoking, alcohol abuse, prescription drug abuse Family history: hypertension Medications and Allergies Allergies Allergy/AdvReac Type Severity Reaction Status Date / Time No Known Allergies Allergy Verified 12/12/13 06:46 Home Medications Medication Instructions Recorded Confirmed Last Taken Type Pravastatin Sodium 40 mg PO DAILY 12/12/13 07/27/18 07/27/18 History Clopidogrel [Plavix] 75 mg PO DAILY #30 tablet 04/03/15 07/27/18 07/27/18 Rx amLODIPine [Norvasc] 10 mg PO DAILY #30 tablet 04/03/15 07/27/18 07/27/18 Rx Fluticasone/Salmeterol [Advair 1 puff IH BID 12/31/15 07/27/18 07/27/18 History Diskus 250-50 mcg] ALBUTEROL Inhaler (OR & NICU) 2 puff IH QID PRN 07/27/18 07/27/18 Unknown History [Proair] Aspirin [Aspirin BABY CHEW TAB] 81 mg PO DAILY 07/27/18 07/27/18 07/27/18 H istory Cyanocobalamin (Vitamin B-12) 2,500 mcg PO DAILY 07/27/18 07/27/18 07/27/18 History [Vitamin B12] [place]-3S/Dha/Epa/Fish Oil/D3 [Fish 1 each PO DAILY 07/27/18 07/27/18 07/27/18 History Hji-Crrbs-2-Vit D Softgel] Active Meds: Active Medications Acetaminophen (Tylenol) 650 mg [place] Q4H PRN PRN Reason: Fever >101 Last Admin: 07/28/18 05:29 Dose: 650 mg Documented by: Amiodarone HCl (Cordarone) 200 mg PO BID [facility] Last Admin: 08/06/18 10:23 Dose: 200 mg Documented by: Lipase/Protease/Amylase (Pancreaze Dr 10,500 Unit) 1 each FEEDTUBE PRN PRN PRN Reason: For Clogged Feeding Tube Arformoterol Tartrate (Brovana Nebu) 15 mcg IH Q12HRT IGNACIO Last Admin: 08/06/18 09:01 Dose: 15 mcg Documented by: Budesonide (Pulmicort) 0.5 mg IH Q12HRT IGNACIO Last Admin: 08/06/18 09:01 Dose: 0.5 mg Documented by: Cyanocobalamin (Vitamin B-12) 2,500 mcg PO QDAY [facility] Last Admin: 08/06/18 10:23 Dose: 2,500 mcg Documented by: Diltiazem HCl (Cardizem) 60 mg PO Q4H [facility] Last Admin: 08/06/18 15:03 Dose: 60 mg Documented by: Famotidine (Pepcid) 20 mg PO BID [facility] Last Admin: 08/06/18 10:23 Dose: 20 mg Documented by: Hydrophilic Ointment (Vaseline Lip Therapy) 1 applic TP Q2HR PRN PRN Reason: Dry Lips Propofol (Diprivan 10 Mg/Ml) 1,000 mg in 100 mls @ 2.531 mls/hr IV TITR [facility]; Protocol Last Titration: 08/06/18 05:50 Dose: 8 mcg/kg/min, 4.05 mls/hr Documented by: Cefepime HCl (Maxipime/Ns 2 Gm/100 Ml) 2 gm in 100 mls @ 200 mls/hr IV Q12HR IGNACIO; Protocol Last Admin: 08/06/18 10:43 Dose: 200 mls/hr Documented by: Fentanyl Citrate (Fentanyl Drip Premix) 2,000 mcg in 100 mls @ 2.285 mls/hr IV TITR [facility]; Protocol Last Admin: 08/06/18 07:59 Dose: 1 mcg/kg/hr, 4.57 mls/hr Documented by: Insulin Glargine (Lantus) 20 units SUB-Q QHS [facility] Last Admin: 08/05/18 22:10 Dose: 20 units Documented by: Insulin Human Lispro (Humalog) 0 unit SUB-Q Q4HR [facility]; Protocol Last Admin: 08/06/18 15:05 Dose: 2 unit Documented by: Multi-Ingred Cream/Lotion/Oil/Oint (Artificial Tears Ophth Oint) 1 applic OU Q4HR PRN PRN Reason: Dry Eye(s) Pravastatin Sodium (Pravachol) 40 mg PO DAILY [facility] Last Admin: 08/06/18 10:25 Dose: 40 mg Documented by: Prednisone (Deltasone) 10 mg PO QDAY [facility] Stop: 08/07/18 10:01 Prednisone (Deltasone) 5 mg PO QDAY [facility] Stop: 08/08/18 10:01 Quetiapine Fumarate (Seroquel) 100 mg PO BID [facility] Last Admin: 08/06/18 10:23 Dose: 100 mg Documented by: Simple Syrup (Simple Syrup) 15 ml FEEDTUBE PRN PRN PRN Reason: Hypoglycemia Simple Syrup (Simple Syrup) 30 ml FEEDTUBE PRN PRN PRN Reason: Hypoglycemia Sodium Bicarbonate (Sodium Bicarbonate) 325 mg FEEDTUBE PRN PRN PRN Reason: For Clogged Feeding Tube Sodium Chloride (Sodium Chloride Flush Syringe 10 Ml) 10 ml IV BID [facility] Last Admin: 08/06/18 10:25 Dose: 10 ml Documented by: Sodium Chloride (Sodium Chloride Flush Syringe 10 Ml) 10 ml IV PRN PRN PRN Reason: LINE FLUSH Review of Systems ROS unobtainable: due to endotracheal tube Exam Vital Signs Pulse Ox 87 07/27/18 11:54 - General physical appearance Positive: no distress, no pain - Neck Positive: no masses, trachea midline, no lymphadectomy, no venous distension, other (no incisions or infections. trachea dives down near sternal notch. ) - Respiratory Positive: normal expansion, normal respiratory effort - Cardiovascular Rhythm: irregularly irregular - Abdomen Abdomen: Present: soft. Absent: distended, surgical scars - Integumentary no rash, no growths, no abnormal pigmentation Results - Labs 08/06/18 05:17 08/06/18 05:17 Abnormal lab results 08/05/18 08/05/18 08/05/18 Range/Units 17:30 18:32 23:32 WBC (4.5-11.0) K/mm3 RBC (3.65-5.03) M/mm3 Hgb (11.8-15.2) gm/dl Hct (35.5-45.6) % MCV (84-94) fl MCH (28-32) pg RDW (13.2-15.2) % Heparin Anti-Xa Level < 0.10 L (0.3-0.7) U.I./ml POC ABG pH (7.35-7.45) POC ABG pCO2 (35-45) POC ABG pO2 (80-105) Carbon Dioxide (22-30) mmol/L BUN (9-20) mg/dL Creatinine (0.8-1.5) mg/dL Glucose (75-100) mg/dL POC Glucose 253 H 215 H (70-105) 08/06/18 08/06/18 08/06/18 Range/Units 02:26 05:17 05:17 WBC 18.9 H (4.5-11.0) K/mm3 RBC 3.06 L (3.65-5.03) M/mm3 Hgb 10.2 L (11.8-15.2) gm/dl Hct 31.3 L (35.5-45.6) % MCV 102 H (84-94) fl MCH 33 H (28-32) pg RDW 16.1 H (13.2-15.2) % Heparin Anti-Xa Level (0.3-0.7) U.I./ml POC ABG pH (7.35-7.45) POC ABG pCO2 (35-45) POC ABG pO2 (80-105) Carbon Dioxide 37 H (22-30) mmol/L BUN 37 H (9-20) mg/dL Creatinine 0.5 L (0.8-1.5) mg/dL Glucose 226 H (75-100) mg/dL POC Glucose 227 H (70-105) 08/06/18 08/06/18 08/06/18 Range/Units 05:32 10:11 15:03 WBC (4.5-11.0) K/mm3 RBC (3.65-5.03) M/mm3 Hgb (11.8-15.2) gm/dl Hct (35.5-45.6) % MCV (84-94) fl MCH (28-32) pg RDW (13.2-15.2) % Heparin Anti-Xa Level (0.3-0.7) U.I./ml POC ABG pH 7.468 H (7.35-7.45) POC ABG pCO2 59.5 H (35-45) POC ABG pO2 64 L (80-105) Carbon Dioxide (22-30) mmol/L BUN (9-20) mg/dL Creatinine (0.8-1.5) mg/dL Glucose (75-100) mg/dL POC Glucose 207 H 229 H (70-105) Diabetes panel 08/06/18 Range/Units 05:17 Sodium 142 (137-145) mmol/L Potassium 4.1 (3.6-5.0) mmol/L Chloride 98.0 (98-107) mmol/L Carbon Dioxide 37 H (22-30) mmol/L BUN 37 H (9-20) mg/dL Creatinine 0.5 L (0.8-1.5) mg/dL Glucose 226 H (75-100) mg/dL Calcium 9.4 (8.4-10.2) mg/dL Calcium panel 08/06/18 Range/Units 05:17 Calcium 9.4 (8.4-10.2) mg/dL Phosphorus 2.80 (2.5-4.5) mg/dL Pituitary panel 08/06/18 Range/Units 05:17 Sodium 142 (137-145) mmol/L Potassium 4.1 (3.6-5.0) mmol/L Chloride 98.0 (98-107) mmol/L Carbon Dioxide 37 H (22-30) mmol/L BUN 37 H (9-20) mg/dL Creatinine 0.5 L (0.8-1.5) mg/dL Glucose 226 H (75-100) mg/dL Calcium 9.4 (8.4-10.2) mg/dL Adrenal panel 08/06/18 Range/Units 05:17 Sodium 142 (137-145) mmol/L Potassium 4.1 (3.6-5.0) mmol/L Chloride 98.0 (98-107) mmol/L Carbon Dioxide 37 H (22-30) mmol/L BUN 37 H (9-20) mg/dL Creatinine 0.5 L (0.8-1.5) mg/dL Glucose 226 H (75-100) mg/dL Calcium 9.4 (8.4-10.2) mg/dL - Imaging Chest x-ray: report reviewed, image reviewed Assessment and Plan - Patient Problems (1) Acute respiratory failure Current Visit: Yes Status: Acute Qualifiers: Respiratory failure complication: hypoxia Qualified Code(s): J96.01 - Acute respiratory failure with hypoxia Plan to address problem: Pt in need of custodial vent support. Slightly increased risk for open procedure as trachea dives down near sternal notch. May need proximal XLT trach. Discussed with sister (Surekha Morin - [phone]). Indications, procedures, risks, benefits discussed. all questions answered. Ok will proceeding. Will get telephone consent tomorrow as she is in [place] right now. Need to hold plavix. Discussed Dr. Cordoba. She was ok with holding it. Will try to schedule on the . Please call with questions. time=45min
[2018-08-06] MEDS: DIPRIVAN 10 MG/ML 1,000 MG/100 ML BOTTLE IV SCH (19:15)
[2018-08-06] MEDS: LANTUS SUB-Q SCH (22:00)
[2018-08-07] MEDS: CARDIZEM PO SCH ×7 (00:20→21:40)
[2018-08-07] MEDS: HumaLOG SUB-Q SCH ×7 (01:42→22:00)
[2018-08-07] MEDS: DIPRIVAN 10 MG/ML 1,000 MG/100 ML BOTTLE IV SCH (04:32)
[2018-08-07] MEDS: PULMICORT IH SCH ×2 (08:45→19:30)
[2018-08-07] MEDS: BROVANA NEBU IH SCH ×2 (08:45→19:30)
[2018-08-07] MEDS: MAXIPIME/NS 2 GM/100 ML 2 GM/100 ML BAG IV SCH ×2 (10:00→22:00)
[2018-08-07] MEDS ORDERED: DELTASONE PO SCH (10:00)
[2018-08-07] MEDS: PRAVACHOL PO SCH (10:01)
[2018-08-07] MEDS: VITAMIN B-12 PO SCH (10:01)
[2018-08-07] MEDS: PEPCID PO SCH ×2 (10:02→22:00)
[2018-08-07] MEDS: CORDARONE PO SCH ×2 (10:16→21:41)
[2018-08-07] MEDS: SODIUM CHLORIDE FLUSH SYRINGE 10 ML IV SCH ×2 (10:28→22:00)
--- NOTE | 2018-08-07 10:34 | Progress Note ---
Assessment and Plan 1. Acute kidney injury: Likely Vasomotor / hemodynamic CARLEE in the setting of A.fib with RVR. Renal function is better. 2. FEN: Hypernatremia, improved. Continue water flushes. Monitor. 3. A.fib: On Amiodarone and Cardizem. 4. Respiratory failure: On vent. 5. Hematuria: S/p Cysto. Subjective Date of service: 08/07/18 Principal diagnosis: AFib Interval history: Patient was seen and examined at the bedside. Objective - Vital Signs Vital signs: Vital Signs - 12hr 08/06/18 08/06/18 08/06/18 23:00 23:05 23:30 Temperature Pulse Rate 68 69 65 Pulse Rate [ Bilateral] Pulse Rate [ From Monitor] Pulse Rate [ Right Radial] Respiratory 19 23 Rate Respiratory Rate [Bilateral ] Blood Pressure 113/58 113/58 120/57 O2 Sat by Pulse 94 93 93 Oximetry 08/07/18 08/07/18 08/07/18 00:00 00:20 00:30 Temperature 98.3 F Pulse Rate 68 67 67 Pulse Rate [ Bilateral] Pulse Rate [ 67 From Monitor] Pulse Rate [ 67 Right Radial] Respiratory 19 16 Rate Respiratory Rate [Bilateral ] Blood Pressure 126/54 122/57 122/59 O2 Sat by Pulse 92 91 Oximetry 08/07/18 08/07/18 08/07/18 01:00 01:30 01:40 Temperature Pulse Rate 66 67 72 Pulse Rate [ Bilateral] Pulse Rate [ From Monitor] Pulse Rate [ Right Radial] Respiratory 19 17 Rate Respiratory Rate [Bilateral ] Blood Pressure 122/61 122/57 136/64 O2 Sat by Pulse 92 92 Oximetry 08/07/18 08/07/18 08/07/18 02:00 02:30 03:00 Temperature Pulse Rate 67 68 67 Pulse Rate [ Bilateral] Pulse Rate [ From Monitor] Pulse Rate [ Right Radial] Respiratory 19 20 18 Rate Respiratory Rate [Bilateral ] Blood Pressure 120/58 119/62 116/60 O2 Sat by Pulse 89 91 92 Oximetry 08/07/18 08/07/18 08/07/18 03:30 04:00 04:30 Temperature 98.3 F Pulse Rate 66 68 68 Pulse Rate [ Bilateral] Pulse Rate [ 84 From Monitor] Pulse Rate [ 84 Right Radial] Respiratory 14 18 22 Rate Respiratory Rate [Bilateral ] Blood Pressure 114/59 115/60 128/61 O2 Sat by Pulse 93 95 91 Oximetry 08/07/18 08/07/18 08/07/18 05:00 05:02 05:30 Temperature Pulse Rate 67 68 Pulse Rate [ Bilateral] Pulse Rate [ From Monitor] Pulse Rate [ Right Radial] Respiratory 18 16 18 Rate Respiratory Rate [Bilateral ] Blood Pressure 110/58 112/58 O2 Sat by Pulse 92 Oximetry 08/07/18 08/07/18 08/07/18 06:00 06:30 07:00 Temperature Pulse Rate 68 69 69 Pulse Rate [ Bilateral] Pulse Rate [ From Monitor] Pulse Rate [ Right Radial] Respiratory 14 22 20 Rate Respiratory Rate [Bilateral ] Blood Pressure 113/59 110/58 118/53 O2 Sat by Pulse 92 97 94 Oximetry 08/07/18 08/07/18 08/07/18 07:30 08:00 08:35 Temperature 98.2 F Pulse Rate 71 74 75 Pulse Rate [ Bilateral] Pulse Rate [ 72 From Monitor] Pulse Rate [ Right Radial] Respiratory 21 16 Rate Respiratory Rate [Bilateral ] Blood Pressure 121/56 121/52 124/61 O2 Sat by Pulse 97 97 Oximetry 08/07/18 08:48 Temperature Pulse Rate Pulse Rate [ 76 Bilateral] Pulse Rate [ From Monitor] Pulse Rate [ Right Radial] Respiratory Rate Respiratory 21 Rate [Bilateral ] Blood Pressure O2 Sat by Pulse Oximetry - General Appearance General appearance: well-developed, appears stated age, intubated, other (on restrains) EENT: ATNC, PERRL Neck: supple Respiratory: Present: Clear to Ascultation Cardiology: S1S2, no murmurs Gastrointestinal: normoactive bowel sounds, no tenderness, no distended Integumentary: no rash, warm and dry Neurologic: other (not following any command) Musculoskeletal: other (trace LE edema) - Lab 08/08/18 02:09 08/08/18 02:09 Most recent lab results Calcium 9.4 mg/dL (8.4-10.2) 08/06/18 05:17 Phosphorus 2.80 mg/dL (2.5-4.5) 08/06/18 05:17 Magnesium 2.30 mg/dL (1.7-2.3) 08/06/18 05:17 Urine Creatinine 72.3 mg/dL (0.1-20.0) H 07/29/18 09:24 Urine Sodium 12 mmol/L 07/29/18 09:24 Medications & Allergies - Medications Allergies/Adverse Reactions: Allergies No Known Allergies Allergy (Verified 12/12/13 06:46) Home Medications: Home Medications Medication Instructions Recorded Confirmed Last Taken Type Pravastatin Sodium 40 mg PO DAILY 12/12/13 07/27/18 07/27/18 History Clopidogrel [Plavix] 75 mg PO DAILY #30 tablet 04/03/15 07/27/18 07/27/18 Rx amLODIPine [Norvasc] 10 mg PO DAILY #30 tablet 04/03/15 07/27/18 07/27/18 Rx Fluticasone/Salmeterol [Advair 1 puff IH BID 12/31/15 07/27/18 07/27/18 History Diskus 250-50 mcg] ALBUTEROL Inhaler (OR & NICU) 2 puff IH QID PRN 07/27/18 07/27/18 Unknown History [Proair] Aspirin [Aspirin BABY CHEW TAB] 81 mg PO DAILY 07/27/18 07/27/18 07/27/18 History Cyanocobalamin (Vitamin B-12) 2,500 mcg PO DAILY 07/27/18 07/27/18 07/27/18 History [Vitamin B12] Seymour-3S/Dha/Epa/Fish Oil/D3 [Fish 1 each PO DAILY 07/27/18 07/27/18 07/27/18 History [id number]-Vit D Softgel] Active Medications: Generic Name Dose Route Start Last Admin Trade Name Freq PRN Reason Stop Dose Admin Acetaminophen 650 mg 07/28/18 04:34 07/28/18 05:29 Tylenol NV 650 mg Q4H PRN Administration Fever >101 Amiodarone HCl 200 mg 07/29/18 14:00 08/07/18 10:16 Cordarone PO 200 mg BID IGNACIO Administration Lipase/Protease/Amylase 1 each 07/28/18 13:57 Pancreana Mccarthy 10,500 Unit FEEDTUBE PRN PRN For Clogged Feeding Tube Arformoterol Tartrate 15 mcg 07/27/18 20:00 08/07/18 08:45 Brovana Nebu IH 15 mcg Q12HRT IGNACIO Administration Budesonide 0.5 mg 07/27/18 20:00 08/07/18 08:45 Pulmicort IH 0.5 mg Q12HRT IGNACIO Administration Cyanocobalamin 2,500 mcg 07/28/18 10:00 08/07/18 10:01 Vitamin B-12 PO 2,500 mcg QDAY IGNACIO Administration Diltiazem HCl 60 mg 08/05/18 12:00 08/07/18 08:35 Cardizem PO 60 mg Q4H IGNACIO Administration Famotidine 20 mg 08/01/18 10:00 08/07/18 10:02 Pepcid PO 20 mg BID IGNACIO Administration Hydrophilic Ointment 1 applic 07/27/18 20:09 Vaseline Lip Therapy TP Q2HR PRN Dry Lips Propofol 1,000 mg in 100 mls @ 2.531 mls/hr 07/27/18 21:00 08/07/18 08:58 Diprivan 10 Mg/Ml IV 0 mcg/kg/min TITR IGNACIO 0 mls/hr Titration Protocol 5 MCG/KG/MIN Cefepime HCl 2 gm in 100 mls @ 200 mls/hr 08/01/18 14:00 08/06/18 22:00 Maxipime/Ns 2 Gm/100 Ml IV 200 mls/hr Q12HR IGNACIO Administration Protocol Fentanyl Citrate 2,000 mcg in 100 mls @ 2.285 mls/hr 08/01/18 14:00 08/07/18 08:30 Fentanyl Drip Premix IV Infused TITR [facility] Titration Protocol 0.5 MCG/KG/HR Insulin Glargine 20 units 08/05/18 22:00 08/06/18 22:00 Lantus SUB-Q 20 units QHS IGNACIO Administration Insulin Human Lispro 0 unit 07/29/18 07:00 08/07/18 10:16 Humalog SUB-Q 1 unit Q4HR [facility] Administration Protocol Multi-Ingred Cream/Lotion/Oil/Oint 1 applic 07/27/18 20:09 Artificial Tears Ophth Oint OU Q4HR PRN Dry Eye(s) Pravastatin Sodium 40 mg 07/28/18 10:00 08/07/18 10:01 Pravachol PO 40 mg DAILY IGNACIO Administration Prednisone 5 mg 08/08/18 10:00 Deltasone PO 08/08/18 10:01 QDAY IGNACIO Quetiapine Fumarate 100 mg 08/03/18 10:00 08/07/18 10:02 Seroquel PO 100 mg BID IGNACIO Administration Simple Syrup 15 ml 07/28/18 13:57 Simple Syrup FEEDTUBE PRN PRN Hypoglycemia Simple Syrup 30 ml 07/28/18 13:57 Simple Syrup FEEDTUBE PRN PRN Hypoglycemia Sodium Bicarbonate 325 mg 07/28/18 13:57 Sodium Bicarbonate FEEDTUBE PRN PRN For Clogged Feeding Tube Sodium Chloride 10 ml 07/27/18 22:00 08/07/18 10:28 Sodium Chloride Flush Syringe 10 Ml IV 10 ml BID IGNACIO Administration Sodium Chloride 10 ml 07/27/18 15:59 Sodium Chloride Flush Syringe 10 Ml IV PRN PRN LINE FLUSH
--- NOTE | 2018-08-07 11:18 | Progress Note ---
Assessment and Plan Acute hypoxemic respiratory failure, on mechanical ventilatory support. Atrial fibrillation with rapid ventricular response, now sinus. 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 Elevated D-dimer. Leukocytosis Hematuria, resolved. Sepsis Chronic obstructive lung disease-acute exacerbation. Hypertension. Peripheral vascular disease. Mixed acidosis, respiratory and metabolic. Acute kidney injury. Lactic acidosis. Elevated BNP level of 3913. - Daily SAT and SBT as tolerated - VAP bundle addressed - titrate sedation for RASS 0 to -1 -Avoid delirium - continue enteric nutrition as tolerated - continue supplemental oxygen to keep sats > 90% - aspiration precautions - continue bronchodilators with pulmonary hygiene per RT -Therapeutic anticoagulation, resume heparin infusion and monitor for bleeding -Stress ulcer prophylaxis -Antibiotics to complete course -Mobility for pressure ulcer prevention -Continue PT/OT Discussed with girlfriend at the bedside, OK with tracheostomy and PEG placement. Discussed with General surgery--plans for trachesotomy and PEG on 07/31/18. Plavix currently on hold. FULL CODE CONDITION: CRITICAL PROGNOSIS: GUARDED The high probability of a clinically significant, sudden or life-threatening deterioration of the [respiratory, cardiovascular, renal] system(s) required my full and direct attention, intervention and personal management. The aggregate critical care time was [35] minutes without overlap. Time includes spent on; [x] Data Review and interpretation [x] Patient assessment and monitoring of vital signs [x] Documentation [x] Medication orders and management Subjective Date of service: 08/07/18 Principal diagnosis: AFib Interval history: Patient is seen today for: Acute hypoxemic respiratory failure on MVS; Atrial fibrillation with RVR; Possible congestive heart failure with an acute exacerbation; History of deep venous thrombosis; Elevated D-dimer. Seen and examined at bedside; 24hour events reviewed; vitals, labs, medications, chart notes reviewed; nursing and respiratory care staff consulted; no adverse overnight events reported to me; remains on MVS;currently in sinus rhythm; no emesis or overt aspiration and tolerating tube feeds; hematuria s/p zuniga placement in OR by urology. Currently has clear urine with zuniga in place. More awake and alert, participating in PT. Girlfriend at the bedside Objective Vital Signs - 12hr 08/06/18 08/07/18 08/07/18 23:30 00:00 00:20 Temperature 98.3 F Pulse Rate 65 68 67 Pulse Rate [ Bilateral] Pulse Rate [ 67 From Monitor] Pulse Rate [ 67 Right Radial] Respiratory 23 19 Rate Respiratory Rate [Bilateral ] Respiratory Rate [Head] Blood Pressure 120/57 126/54 122/57 O2 Sat by Pulse 93 92 Oximetry 08/07/18 08/07/18 08/07/18 00:30 01:00 01:30 Temperature Pulse Rate 67 66 67 Pulse Rate [ Bilateral] Pulse Rate [ From Monitor] Pulse Rate [ Right Radial] Respiratory 16 19 17 Rate Respiratory Rate [Bilateral ] Respiratory Rate [Head] Blood Pressure 122/59 122/61 122/57 O2 Sat by Pulse 91 92 92 Oximetry 08/07/18 08/07/18 08/07/18 01:40 02:00 02:30 Temperature Pulse Rate 72 67 68 Pulse Rate [ Bilateral] Pulse Rate [ From Monitor] Pulse Rate [ Right Radial] Respiratory 19 20 Rate Respiratory Rate [Bilateral ] Respiratory Rate [Head] Blood Pressure 136/64 120/58 119/62 O2 Sat by Pulse 89 91 Oximetry 08/07/18 08/07/18 08/07/18 03:00 03:30 04:00 Temperature 98.3 F Pulse Rate 67 66 68 Pulse Rate [ Bilateral] Pulse Rate [ 84 From Monitor] Pulse Rate [ 84 Right Radial] Respiratory 18 14 18 Rate Respiratory Rate [Bilateral ] Respiratory Rate [Head] Blood Pressure 116/60 114/59 115/60 O2 Sat by Pulse 92 93 95 Oximetry 08/07/18 08/07/18 08/07/18 04:30 05:00 05:02 Temperature Pulse Rate 68 67 Pulse Rate [ Bilateral] Pulse Rate [ From Monitor] Pulse Rate [ Right Radial] Respiratory 22 18 16 Rate Respiratory Rate [Bilateral ] Respiratory Rate [Head] Blood Pressure 128/61 110/58 O2 Sat by Pulse 91 Oximetry 08/07/18 08/07/18 08/07/18 05:30 06:00 06:30 Temperature Pulse Rate 68 68 69 Pulse Rate [ Bilateral] Pulse Rate [ From Monitor] Pulse Rate [ Right Radial] Respiratory 18 14 22 Rate Respiratory Rate [Bilateral ] Respiratory Rate [Head] Blood Pressure 112/58 113/59 110/58 O2 Sat by Pulse 92 92 97 Oximetry 08/07/18 08/07/18 08/07/18 07:00 07:30 08:00 Temperature 98.2 F Pulse Rate 69 71 74 Pulse Rate [ Bilateral] Pulse Rate [ 72 From Monitor] Pulse Rate [ Right Radial] Respiratory 20 21 16 Rate Respiratory Rate [Bilateral ] Respiratory Rate [Head] Blood Pressure 118/53 121/56 121/52 O2 Sat by Pulse 94 97 97 Oximetry 08/07/18 08/07/18 08/07/18 08:30 08:35 08:48 Temperature Pulse Rate 74 75 Pulse Rate [ 76 Bilateral] Pulse Rate [ From Monitor] Pulse Rate [ Right Radial] Respiratory 23 Rate Respiratory 21 Rate [Bilateral ] Respiratory Rate [Head] Blood Pressure 124/61 124/61 O2 Sat by Pulse 89 Oximetry 08/07/18 08/07/18 08/07/18 09:00 09:30 10:00 Temperature Pulse Rate 73 67 81 Pulse Rate [ Bilateral] Pulse Rate [ From Monitor] Pulse Rate [ Right Radial] Respiratory 16 16 30 H Rate Respiratory Rate [Bilateral ] Respiratory 19 Rate [Head] Blood Pressure 104/51 103/52 113/54 O2 Sat by Pulse 96 93 Oximetry 08/07/18 08/07/18 10:30 11:00 Temperature Pulse Rate 86 91 H Pulse Rate [ Bilateral] Pulse Rate [ From Monitor] Pulse Rate [ Right Radial] Respiratory 32 H 33 H Rate Respiratory Rate [Bilateral ] Respiratory Rate [Head] Blood Pressure 139/64 140/62 O2 Sat by Pulse 91 91 Oximetry Constitutional: appears uncomfortable, other (elderly looking CM, normocephalic and atraumatic with normal respiratory effort) Eyes: non-icteric ENT: oropharynx moist, other (ETT 23 cm SUHAS) Neck: supple, no lymphadenopathy, no JVD, other (No thyromegaly) Effort: mildly labored Ascultation: Bilateral: diminished breath sounds, rhonchi Percussion: Bilateral: not dull Cardiovascular: irregular rhythm, other (+ systolic murmur) Gastrointestinal: hypoactive bowel sounds, soft, non-tender, non-distended, other (No palpable HSM) Integumentary: rash, other (upper extremity edema) Extremities: no cyanosis, pink and warm, pulses normal, no ischemia or petechiae Neurologic: non-focal exam (grossly), pupils equal and round, other (moves all extemities) Psychiatric: mood appropriate, affect normal CBC and BMP: 08/07/18 15:08 08/06/18 05:17 ABG, PT/INR, D-dimer: ABG POC ABG pH 7.410 (7.35-7.45) 08/07/18 05:30 POC ABG pCO2 69.6 (35-45) H 08/07/18 05:30 POC ABG pO2 64 (80-105) L 08/07/18 05:30 POC ABG HCO3 44.1 08/07/18 05:30 POC ABG Total CO2 46 08/07/18 05:30 POC ABG O2 Sat 91 08/07/18 05:30 PT/INR, D-dimer PT 16.0 Sec. (12.2-14.9) H 07/27/18 17:09 INR 1.24 (0.87-1.13) H 07/27/18 17:09 D-Dimer 798.17 ng/mlDDU (0-234) H 07/27/18 15:52 Abnormal lab findings: Abnormal Labs 07/27/18 07/27/18 07/27/18 12:59 12:59 12:59 WBC 15.8 H RBC Hgb Hct MCV 104 H MCH 34 H RDW 16.3 H Seg Neuts % (Manual) 88.0 H Lymphocytes % (Manual) 3.0 L Nucleated RBC % Seg Neutrophils # Man 13.9 H Lymphocytes # (Manual) 0.5 L Monocytes # (Manual) PT 17.0 H INR 1.34 H D-Dimer Heparin Anti-Xa Level POC ABG pH POC ABG pCO2 POC ABG pO2 Sodium Potassium Chloride Carbon Dioxide 21 L BUN 38 H Creatinine 1.6 H Glucose POC Glucose Lactic Acid Calcium Phosphorus Total Bilirubin 1.30 H C-Reactive Protein NT-Pro-B Natriuret Pep 3913 H Total Protein 6.2 L Albumin 3.6 L Urine WBC (Auto) Urine Creatinine 07/27/18 07/27/18 07/27/18 15:52 16:12 17:09 WBC RBC Hgb Hct MCV MCH RDW Seg Neuts % (Manual) Lymphocytes % (Manual) Nucleated RBC % Seg Neutrophils # Man Lymphocytes # (Manual) Monocytes # (Manual) PT 16.0 H INR 1.24 H D-Dimer 798.17 H Heparin Anti-Xa Level POC ABG pH POC ABG pCO2 POC ABG pO2 Sodium Potassium Chloride Carbon Dioxide BUN Creatinine Glucose POC Glucose Lactic Acid 5.00 H* Calcium Phosphorus Total Bilirubin C-Reactive Protein NT-Pro-B Natriuret Pep Total Protein Albumin Urine WBC (Auto) Urine Creatinine 07/27/18 07/27/18 07/27/18 17:59 18:07 21:31 WBC RBC Hgb Hct MCV MCH RDW Seg Neuts % (Manual) Lymphocytes % (Manual) Nucleated RBC % Seg Neutrophils # Man Lymphocytes # (Manual) Monocytes # (Manual) PT INR D-Dimer Heparin Anti-Xa Level POC ABG pH 7.344 L POC ABG pCO2 POC ABG pO2 36 L Sodium Potassium Chloride Carbon Dioxide BUN Creatinine Glucose POC Glucose Lactic Acid 5.20 H* 5.00 H* Calcium Phosphorus Total Bilirubin C-Reactive Protein NT-Pro-B Natriuret Pep Total Protein Albumin Urine WBC (Auto) Urine Creatinine 07/27/18 07/27/18 07/27/18 21:57 22:42 23:26 WBC RBC Hgb Hct MCV MCH RDW Seg Neuts % (Manual) Lymphocytes % (Manual) Nucleated RBC % Seg Neutrophils # Man Lymphocytes # (Manual) Monocytes # (Manual) PT INR D-Dimer Heparin Anti-Xa Level POC ABG pH 7.199 L POC ABG pCO2 62.0 H POC ABG pO2 Sodium Potassium Chloride Carbon Dioxide BUN Creatinine Glucose POC Glucose Lactic Acid 4.70 H* 5.00 H* Calcium Phosphorus Total Bilirubin C-Reactive Protein NT-Pro-B Natriuret Pep Total Protein Albumin Urine WBC (Auto) Urine Creatinine 07/28/18 07/28/18 07/28/18 00:45 05:40 05:58 WBC RBC Hgb Hct MCV MCH RDW Seg Neuts % (Manual) Lymphocytes % (Manual) Nucleated RBC % Seg Neutrophils # Man Lymphocytes # (Manual) Monocytes # (Manual) PT INR D-Dimer Heparin Anti-Xa Level 0.11 L POC ABG pH 7.186 L POC ABG pCO2 60.1 H POC ABG pO2 68 L Sodium Potassium Chloride Carbon Dioxide BUN Creatinine Glucose POC Glucose Lactic Acid 4.70 H* Calcium Phosphorus Total Bilirubin C-Reactive Protein NT-Pro-B Natriuret Pep Total Protein Albumin Urine WBC (Auto) Urine Creatinine 07/28/18 07/28/18 07/28/18 06:01 06:01 07:19 WBC 12.5 H RBC 3.51 L Hgb 11.5 L Hct MCV 104 H MCH 33 H RDW 16.6 H Seg Neuts % (Manual) Lymphocytes % (Manual) Nucleated RBC % Seg Neutrophils # Man Lymphocytes # (Manual) Monocytes # (Manual) PT INR D-Dimer Heparin Anti-Xa Level 0.14 L POC ABG pH POC ABG pCO2 POC ABG pO2 Sodium 135 L Potassium 5.1 H Chloride 95.0 L Carbon Dioxide 21 L BUN 54 H Creatinine 2.6 H D Glucose POC Glucose Lactic Acid Calcium Phosphorus Total Bilirubin C-Reactive Protein NT-Pro-B Natriuret Pep Total Protein Albumin Urine WBC (Auto) Urine Creatinine 07/28/18 07/28/18 07/28/18 07:19 09:20 11:06 WBC RBC Hgb Hct MCV MCH RDW Seg Neuts % (Manual) Lymphocytes % (Manual) Nucleated RBC % Seg Neutrophils # Man Lymphocytes # (Manual) Monocytes # (Manual) PT INR D-Dimer Heparin Anti-Xa Level POC ABG pH 7.266 L POC ABG pCO2 49.7 H POC ABG pO2 74 L Sodium Potassium Chloride Carbon Dioxide BUN Creatinine Glucose POC Glucose Lactic Acid 4.00 H* 3.90 H* Calcium Phosphorus Total Bilirubin C-Reactive Protein NT-Pro-B Natriuret Pep Total Protein Albumin Urine WBC (Auto) Urine Creatinine 07/28/18 07/28/18 07/28/18 15:06 20:45 23:36 WBC RBC Hgb Hct MCV MCH RDW Seg Neuts % (Manual) Lymphocytes % (Manual) Nucleated RBC % Seg Neutrophils # Man Lymphocytes # (Manual) Monocytes # (Manual) PT INR D-Dimer Heparin Anti-Xa Level 0.15 L POC ABG pH POC ABG pCO2 POC ABG pO2 Sodium 134 L Potassium 5.2 H Chloride Carbon Dioxide BUN 58 H Creatinine 2.1 H Glucose 110 H POC Glucose 125 H Lactic Acid Calcium Phosphorus Total Bilirubin C-Reactive Protein NT-Pro-B Natriuret Pep Total Protein Albumin Urine WBC (Auto) Urine Creatinine 07/29/18 07/29/18 07/29/18 01:12 04:21 04:21 WBC RBC 3.21 L Hgb 10.8 L Hct 33.0 L MCV 103 H MCH 34 H RDW 16.4 H Seg Neuts % (Manual) Lymphocytes % (Manual) 11.0 L Nucleated RBC % Seg Neutrophils # Man Lymphocytes # (Manual) 1.0 L Monocytes # (Manual) PT INR D-Dimer Heparin Anti-Xa Level 0.21 L POC ABG pH POC ABG pCO2 POC ABG pO2 Sodium Potassium Chloride Carbon Dioxide BUN 48 H Creatinine 1.6 H Glucose 166 H POC Glucose Lactic Acid Calcium Phosphorus Total Bilirubin C-Reactive Protein NT-Pro-B Natriuret Pep Total Protein Albumin Urine WBC (Auto) Urine Creatinine 07/29/18 07/29/18 07/29/18 05:19 08:16 09:24 WBC RBC Hgb Hct MCV MCH RDW Seg Neuts % (Manual) Lymphocytes % (Manual) Nucleated RBC % Seg Neutrophils # Man Lymphocytes # (Manual) Monocytes # (Manual) PT INR D-Dimer Heparin Anti-Xa Level 0.25 L POC ABG pH POC ABG pCO2 POC ABG pO2 Sodium Potassium Chloride Carbon Dioxide BUN Creatinine Glucose POC Glucose 181 H Lactic Acid Calcium Phosphorus Total Bilirubin C-Reactive Protein NT-Pro-B Natriuret Pep Total Protein Albumin Urine WBC (Auto) 29.0 H Urine Creatinine 07/29/18 07/29/18 07/29/18 09:24 10:00 15:03 WBC RBC Hgb Hct MCV MCH RDW Seg Neuts % (Manual) Lymphocytes % (Manual) Nucleated RBC % Seg Neutrophils # Man Lymphocytes # (Manual) Monocytes # (Manual) PT INR D-Dimer Heparin Anti-Xa Level POC ABG pH POC ABG pCO2 POC ABG pO2 Sodium Potassium Chloride Carbon Dioxide BUN Creatinine Glucose POC Glucose 195 H 167 H Lactic Acid Calcium Phosphorus Total Bilirubin C-Reactive Protein NT-Pro-B Natriuret Pep Total Protein Albumin Urine WBC (Auto) Urine Creatinine 72.3 H 07/29/18 07/29/18 07/30/18 17:51 21:32 01:38 WBC RBC Hgb Hct MCV MCH RDW Seg Neuts % (Manual) Lymphocytes % (Manual) Nucleated RBC % Seg Neutrophils # Man Lymphocytes # (Manual) Monocytes # (Manual) PT INR D-Dimer Heparin Anti-Xa Level POC ABG pH POC ABG pCO2 POC ABG pO2 Sodium Potassium Chloride Carbon Dioxide BUN Creatinine Glucose POC Glucose 167 H 217 H 194 H Lactic Acid Calcium Phosphorus Total Bilirubin C-Reactive Protein NT-Pro-B Natriuret Pep Total Protein Albumin Urine WBC (Auto) Urine Creatinine 07/30/18 07/30/18 07/30/18 03:21 05:13 10:18 WBC RBC Hgb Hct MCV MCH RDW Seg Neuts % (Manual) Lymphocytes % (Manual) Nucleated RBC % Seg Neutrophils # Man Lymphocytes # (Manual) Monocytes # (Manual) PT INR D-Dimer Heparin Anti-Xa Level POC ABG pH POC ABG pCO2 50.3 H POC ABG pO2 78 L Sodium Potassium Chloride Carbon Dioxide BUN 41 H Creatinine Glucose 202 H POC Glucose 151 H Lactic Acid Calcium Phosphorus Total Bilirubin C-Reactive Protein NT-Pro-B Natriuret Pep Total Protein Albumin Urine WBC (Auto) Urine Creatinine 07/30/18 07/30/18 07/30/18 11:29 16:28 18:12 WBC RBC Hgb Hct MCV MCH RDW Seg Neuts % (Manual) Lymphocytes % (Manual) Nucleated RBC % Seg Neutrophils # Man Lymphocytes # (Manual) Monocytes # (Manual) PT INR D-Dimer Heparin Anti-Xa Level POC ABG pH 7.326 L POC ABG pCO2 53.2 H POC ABG pO2 70 L Sodium Potassium Chloride Carbon Dioxide BUN Creatinine Glucose POC Glucose 247 H 212 H Lactic Acid Calcium Phosphorus Total Bilirubin C-Reactive Protein NT-Pro-B Natriuret Pep Total Protein Albumin Urine WBC (Auto) Urine Creatinine 07/30/18 07/30/18 07/31/18 20:08 21:52 01:59 WBC RBC Hgb Hct MCV MCH RDW Seg Neuts % (Manual) Lymphocytes % (Manual) Nucleated RBC % Seg Neutrophils # Man Lymphocytes # (Manual) Monocytes # (Manual) PT INR D-Dimer Heparin Anti-Xa Level POC ABG pH POC ABG pCO2 POC ABG pO2 Sodium Potassium Chloride Carbon Dioxide BUN Creatinine Glucose POC Glucose 205 H 215 H 242 H Lactic Acid Calcium Phosphorus Total Bilirubin C-Reactive Protein NT-Pro-B Natriuret Pep Total Protein Albumin Urine WBC (Auto) Urine Creatinine 07/31/18 07/31/18 07/31/18 03:14 03:14 04:55 WBC RBC Hgb 10.6 L Hct 33.2 L MCV MCH RDW Seg Neuts % (Manual) Lymphocytes % (Manual) Nucleated RBC % Seg Neutrophils # Man Lymphocytes # (Manual) Monocytes # (Manual) PT INR D-Dimer Heparin Anti-Xa Level POC ABG pH 7.331 L POC ABG pCO2 67.1 H POC ABG pO2 Sodium Potassium Chloride Carbon Dioxide BUN 36 H Creatinine 0.7 L Glucose 242 H POC Glucose Lactic Acid Calcium 10.3 H Phosphorus 2.30 L Total Bilirubin C-Reactive Protein NT-Pro-B Natriuret Pep Total Protein Albumin Urine WBC (Auto) Urine Creatinine 07/31/18 07/31/18 07/31/18 05:37 10:08 14:07 WBC RBC Hgb Hct MCV MCH RDW Seg Neuts % (Manual) Lymphocytes % (Manual) Nucleated RBC % Seg Neutrophils # Man Lymphocytes # (Manual) Monocytes # (Manual) PT INR D-Dimer Heparin Anti-Xa Level POC ABG pH POC ABG pCO2 POC ABG pO2 Sodium Potassium Chloride Carbon Dioxide BUN Creatinine Glucose POC Glucose 193 H 247 H 225 H Lactic Acid Calcium Phosphorus Total Bilirubin C-Reactive Protein NT-Pro-B Natriuret Pep Total Protein Albumin Urine WBC (Auto) Urine Creatinine 07/31/18 07/31/18 08/01/18 18:12 21:34 02:00 WBC RBC Hgb Hct MCV MCH RDW Seg Neuts % (Manual) Lymphocytes % (Manual) Nucleated RBC % Seg Neutrophils # Man Lymphocytes # (Manual) Monocytes # (Manual) PT INR D-Dimer Heparin Anti-Xa Level POC ABG pH POC ABG pCO2 POC ABG pO2 Sodium Potassium Chloride Carbon Dioxide BUN Creatinine Glucose POC Glucose 197 H 204 H 239 H Lactic Acid Calcium Phosphorus Total Bilirubin C-Reactive Protein NT-Pro-B Natriuret Pep Total Protein Albumin Urine WBC (Auto) Urine Creatinine 08/01/18 08/01/18 08/01/18 04:13 04:37 05:29 WBC RBC Hgb Hct MCV MCH RDW Seg Neuts % (Manual) Lymphocytes % (Manual) Nucleated RBC % Seg Neutrophils # Man Lymphocytes # (Manual) Monocytes # (Manual) PT INR D-Dimer Heparin Anti-Xa Level POC ABG pH 7.296 L POC ABG pCO2 81.9 H POC ABG pO2 190 H Sodium 150 H D Potassium Chloride Carbon Dioxide 37 H D BUN 37 H Creatinine 0.6 L Glucose 223 H POC Glucose 219 H Lactic Acid Calcium Phosphorus Total Bilirubin C-Reactive Protein NT-Pro-B Natriuret Pep Total Protein Albumin Urine WBC (Auto) Urine Creatinine 08/01/18 08/01/18 08/01/18 09:28 11:00 17:36 WBC RBC Hgb Hct MCV MCH RDW Seg Neuts % (Manual) Lymphocytes % (Manual) Nucleated RBC % Seg Neutrophils # Man Lymphocytes # (Manual) Monocytes # (Manual) PT INR D-Dimer Heparin Anti-Xa Level POC ABG pH POC ABG pCO2 61.2 H POC ABG pO2 69 L Sodium Potassium Chloride Carbon Dioxide BUN Creatinine Glucose POC Glucose 185 H 234 H Lactic Acid Calcium Phosphorus Total Bilirubin C-Reactive Protein NT-Pro-B Natriuret Pep Total Protein Albumin Urine WBC (Auto) Urine Creatinine 08/01/18 08/02/18 08/02/18 21:54 00:08 00:44 WBC RBC Hgb Hct MCV MCH RDW Seg Neuts % (Manual) Lymphocytes % (Manual) Nucleated RBC % Seg Neutrophils # Man Lymphocytes # (Manual) Monocytes # (Manual) PT INR D-Dimer Heparin Anti-Xa Level 0.77 H POC ABG pH POC ABG pCO2 66.4 H POC ABG pO2 64 L Sodium Potassium Chloride Carbon Dioxide BUN Creatinine Glucose POC Glucose 242 H Lactic Acid Calcium Phosphorus Total Bilirubin C-Reactive Protein NT-Pro-B Natriuret Pep Total Protein Albumin Urine WBC (Auto) Urine Creatinine 08/02/18 08/02/18 08/02/18 02:46 04:45 04:45 WBC RBC Hgb 10.7 L Hct 33.7 L MCV MCH RDW Seg Neuts % (Manual) Lymphocytes % (Manual) Nucleated RBC % Seg Neutrophils # Man Lymphocytes # (Manual) Monocytes # (Manual) PT INR D-Dimer Heparin Anti-Xa Level POC ABG pH POC ABG pCO2 POC ABG pO2 Sodium 152 H Potassium Chloride 108.1 H Carbon Dioxide 39 H BUN 38 H Creatinine 0.6 L Glucose 226 H POC Glucose 206 H Lactic Acid Calcium Phosphorus Total Bilirubin C-Reactive Protein NT-Pro-B Natriuret Pep Total Protein Albumin Urine WBC (Auto) Urine Creatinine 08/02/18 08/02/18 08/02/18 05:31 09:46 14:23 WBC RBC Hgb Hct MCV MCH RDW Seg Neuts % (Manual) Lymphocytes % (Manual) Nucleated RBC % Seg Neutrophils # Man Lymphocytes # (Manual) Monocytes # (Manual) PT INR D-Dimer Heparin Anti-Xa Level 0.91 H POC ABG pH POC ABG pCO2 POC ABG pO2 Sodium Potassium Chloride Carbon Dioxide BUN Creatinine Glucose POC Glucose 214 H 210 H Lactic Acid Calcium Phosphorus Total Bilirubin C-Reactive Protein NT-Pro-B Natriuret Pep Total Protein Albumin Urine WBC (Auto) Urine Creatinine 08/02/18 08/02/18 08/02/18 15:46 17:56 21:50 WBC RBC Hgb Hct MCV MCH RDW Seg Neuts % (Manual) Lymphocytes % (Manual) Nucleated RBC % Seg Neutrophils # Man Lymphocytes # (Manual) Monocytes # (Manual) PT INR D-Dimer Heparin Anti-Xa Level 0.99 H POC ABG pH POC ABG pCO2 POC ABG pO2 Sodium Potassium Chloride Carbon Dioxide BUN Creatinine Glucose POC Glucose 252 H 222 H Lactic Acid Calcium Phosphorus Total Bilirubin C-Reactive Protein NT-Pro-B Natriuret Pep Total Protein Albumin Urine WBC (Auto) Urine Creatinine 08/03/18 08/03/18 08/03/18 02:18 05:21 05:25 WBC RBC Hgb Hct MCV MCH RDW Seg Neuts % (Manual) Lymphocytes % (Manual) Nucleated RBC % Seg Neutrophils # Man Lymphocytes # (Manual) Monocytes # (Manual) PT INR D-Dimer Heparin Anti-Xa Level POC ABG pH POC ABG pCO2 POC ABG pO2 Sodium 151 H Potassium Chloride 107.3 H Carbon Dioxide 37 H BUN 42 H Creatinine 0.6 L Glucose 263 H POC Glucose 241 H 241 H Lactic Acid Calcium Phosphorus Total Bilirubin C-Reactive Protein NT-Pro-B Natriuret Pep Total Protein Albumin Urine WBC (Auto) Urine Creatinine 08/03/18 08/03/18 08/03/18 09:11 12:20 14:33 WBC RBC Hgb Hct MCV MCH RDW Seg Neuts % (Manual) Lymphocytes % (Manual) Nucleated RBC % Seg Neutrophils # Man Lymphocytes # (Manual) Monocytes # (Manual) PT INR D-Dimer Heparin Anti-Xa Level POC ABG pH POC ABG pCO2 POC ABG pO2 Sodium Potassium Chloride Carbon Dioxide BUN Creatinine Glucose POC Glucose 272 H 234 H 247 H Lactic Acid Calcium Phosphorus Total Bilirubin C-Reactive Protein NT-Pro-B Natriuret Pep Total Protein Albumin Urine WBC (Auto) Urine Creatinine 08/03/18 08/03/18 08/04/18 16:48 21:21 01:56 WBC RBC Hgb Hct MCV MCH RDW Seg Neuts % (Manual) Lymphocytes % (Manual) Nucleated RBC % Seg Neutrophils # Man Lymphocytes # (Manual) Monocytes # (Manual) PT INR D-Dimer Heparin Anti-Xa Level POC ABG pH POC ABG pCO2 POC ABG pO2 Sodium Potassium Chloride Carbon Dioxide BUN Creatinine Glucose POC Glucose 180 H 189 H Lactic Acid Calcium Phosphorus Total Bilirubin C-Reactive Protein 2.30 H NT-Pro-B Natriuret Pep Total Protein Albumin Urine WBC (Auto) Urine Creatinine 08/04/18 08/04/1818 01:58 05:05 05:05 WBC 25.5 H RBC 3.31 L Hgb 10.8 L Hct 34.1 L MCV 103 H MCH 33 H RDW 16.0 H Seg Neuts % (Manual) Lymphocytes % (Manual) 8.0 L Nucleated RBC % 2.0 H Seg Neutrophils # Man 16.3 H Lymphocytes # (Manual) Monocytes # (Manual) 1.0 H PT INR D-Dimer Heparin Anti-Xa Level 0.79 H POC ABG pH POC ABG pCO2 POC ABG pO2 Sodium 148 H Potassium Chloride Carbon Dioxide 36 H BUN 35 H Creatinine 0.6 L Glucose 160 H POC Glucose Lactic Acid Calcium Phosphorus Total Bilirubin C-Reactive Protein NT-Pro-B Natriuret Pep Total Protein Albumin Urine WBC (Auto) Urine Creatinine 08/04/18 08/04/18 08/04/18 05:24 05:33 08:46 WBC RBC Hgb Hct MCV MCH RDW Seg Neuts % (Manual) Lymphocytes % (Manual) Nucleated RBC % Seg Neutrophils # Man Lymphocytes # (Manual) Monocytes # (Manual) PT INR D-Dimer Heparin Anti-Xa Level 0.76 H POC ABG pH POC ABG pCO2 65.7 H POC ABG pO2 63 L Sodium Potassium Chloride Carbon Dioxide BUN Creatinine Glucose POC Glucose 159 H Lactic Acid Calcium Phosphorus Total Bilirubin C-Reactive Protein NT-Pro-B Natriuret Pep Total Protein Albumin Urine WBC (Auto) Urine Creatinine 08/04/18 08/04/18 08/04/18 09:12 15:38 18:20 WBC RBC Hgb Hct MCV MCH RDW Seg Neuts % (Manual) Lymphocytes % (Manual) Nucleated RBC % Seg Neutrophils # Man Lymphocytes # (Manual) Monocytes # (Manual) PT INR D-Dimer Heparin Anti-Xa Level POC ABG pH POC ABG pCO2 POC ABG pO2 Sodium Potassium Chloride Carbon Dioxide BUN Creatinine Glucose POC Glucose 140 H 267 H 252 H Lactic Acid Calcium Phosphorus Total Bilirubin C-Reactive Protein NT-Pro-B Natriuret Pep Total Protein Albumin Urine WBC (Auto) Urine Creatinine 08/04/18 08/05/18 08/05/18 21:17 02:51 04:36 WBC RBC Hgb Hct MCV MCH RDW Seg Neuts % (Manual) Lymphocytes % (Manual) Nucleated RBC % Seg Neutrophils # Man Lymphocytes # (Manual) Monocytes # (Manual) PT INR D-Dimer Heparin Anti-Xa Level POC ABG pH POC ABG pCO2 POC ABG pO2 Sodium Potassium Chloride Carbon Dioxide BUN Creatinine Glucose POC Glucose 181 H 240 H 255 H Lactic Acid Calcium Phosphorus Total Bilirubin C-Reactive Protein NT-Pro-B Natriuret Pep Total Protein Albumin Urine WBC (Auto) Urine Creatinine 08/05/18 08/05/18 08/05/18 04:55 10:21 12:39 WBC 21.8 H RBC 3.18 L Hgb 10.3 L Hct 32.6 L MCV 103 H MCH 33 H RDW 16.3 H Seg Neuts % (Manual) 88.0 H Lymphocytes % (Manual) 4.0 L Nucleated RBC % Seg Neutrophils # Man 19.2 H Lymphocytes # (Manual) 0.9 L Monocytes # (Manual) PT INR D-Dimer Heparin Anti-Xa Level POC ABG pH 7.506 H POC ABG pCO2 56.0 H POC ABG pO2 63 L Sodium Potassium Chloride Carbon Dioxide BUN Creatinine Glucose POC Glucose 227 H Lactic Acid Calcium Phosphorus Total Bilirubin C-Reactive Protein NT-Pro-B Natriuret Pep Total Protein Albumin Urine WBC (Auto) Urine Creatinine 08/05/18 08/05/18 08/05/18 12:39 14:10 17:30 WBC RBC Hgb Hct MCV MCH RDW Seg Neuts % (Manual) Lymphocytes % (Manual) Nucleated RBC % Seg Neutrophils # Man Lymphocytes # (Manual) Monocytes # (Manual) PT INR D-Dimer Heparin Anti-Xa Level < 0.10 L POC ABG pH POC ABG pCO2 POC ABG pO2 Sodium Potassium Chloride 96.8 L Carbon Dioxide 38 H BUN 36 H Creatinine 0.6 L Glucose 218 H POC Glucose 221 H Lactic Acid Calcium Phosphorus Total Bilirubin C-Reactive Protein NT-Pro-B Natriuret Pep Total Protein Albumin Urine WBC (Auto) Urine Creatinine 08/05/18 08/05/18 08/06/18 18:32 23:32 02:26 WBC RBC Hgb Hct MCV MCH RDW Seg Neuts % (Manual) Lymphocytes % (Manual) Nucleated RBC % Seg Neutrophils # Man Lymphocytes # (Manual) Monocytes # (Manual) PT INR D-Dimer Heparin Anti-Xa Level POC ABG pH POC ABG pCO2 POC ABG pO2 Sodium Potassium Chloride Carbon Dioxide BUN Creatinine Glucose POC Glucose 253 H 215 H 227 H Lactic Acid Calcium Phosphorus Total Bilirubin C-Reactive Protein NT-Pro-B Natriuret Pep Total Protein Albumin Urine WBC (Auto) Urine Creatinine 08/06/18 08/06/18 08/06/18 05:17 05:17 05:32 WBC 18.9 H RBC 3.06 L Hgb 10.2 L Hct 31.3 L MCV 102 H MCH 33 H RDW 16.1 H Seg Neuts % (Manual) Lymphocytes % (Manual) Nucleated RBC % Seg Neutrophils # Man Lymphocytes # (Manual) Monocytes # (Manual) PT INR D-Dimer Heparin Anti-Xa Level POC ABG pH 7.468 H POC ABG pCO2 59.5 H POC ABG pO2 64 L Sodium Potassium Chloride Carbon Dioxide 37 H BUN 37 H Creatinine 0.5 L Glucose 226 H POC Glucose Lactic Acid Calcium Phosphorus Total Bilirubin C-Reactive Protein NT-Pro-B Natriuret Pep Total Protein Albumin Urine WBC (Auto) Urine Creatinine 08/06/18 08/06/18 08/06/18 10:11 15:03 17:48 WBC RBC Hgb Hct MCV MCH RDW Seg Neuts % (Manual) Lymphocytes % (Manual) Nucleated RBC % Seg Neutrophils # Man Lymphocytes # (Manual) Monocytes # (Manual) PT INR D-Dimer Heparin Anti-Xa Level POC ABG pH POC ABG pCO2 POC ABG pO2 Sodium Potassium Chloride Carbon Dioxide BUN Creatinine Glucose POC Glucose 207 H 229 H 188 H Lactic Acid Calcium Phosphorus Total Bilirubin C-Reactive Protein NT-Pro-B Natriuret Pep Total Protein Albumin Urine WBC (Auto) Urine Creatinine 08/06/18 08/07/18 08/07/18 22:53 01:55 05:30 WBC RBC Hgb Hct MCV MCH RDW Seg Neuts % (Manual) Lymphocytes % (Manual) Nucleated RBC % Seg Neutrophils # Man Lymphocytes # (Manual) Monocytes # (Manual) PT INR D-Dimer Heparin Anti-Xa Level POC ABG pH POC ABG pCO2 69.6 H POC ABG pO2 64 L Sodium Potassium Chloride Carbon Dioxide BUN Creatinine Glucose POC Glucose 146 H 143 H Lactic Acid Calcium Phosphorus Total Bilirubin C-Reactive Protein NT-Pro-B Natriuret Pep Total Protein Albumin Urine WBC (Auto) Urine Creatinine 08/07/18 09:59 WBC RBC Hgb Hct MCV MCH RDW Seg Neuts % (Manual) Lymphocytes % (Manual) Nucleated RBC % Seg Neutrophils # Man Lymphocytes # (Manual) Monocytes # (Manual) PT INR D-Dimer Heparin Anti-Xa Level POC ABG pH POC ABG pCO2 POC ABG pO2 Sodium Potassium Chloride Carbon Dioxide BUN Creatinine Glucose POC Glucose 188 H Lactic Acid Calcium Phosphorus Total Bilirubin C-Reactive Protein NT-Pro-B Natriuret Pep Total Protein Albumin Urine WBC (Auto) Urine Creatinine Allied health notes reviewed: PT
--- NOTE | 2018-08-07 11:24 | Consultation ---
History of Present Illness - Reason for Consult Consult date: 08/05/18 - History of Present Illness 73 YO Male with H/O COPD, PVD, HTN, HLD, Seizure Disorder, Skin Cancer presents to ED for evaluation. Pt states that he has experienced shortness and chest palpitations over the past 2 days with worsening symptoms over the past 1 day. Pt acknowledges decreased exercise tolerance, as well as dyspnea on exertion. . The patient remains intubated on mechanical ventilation abd soft condom cath A/P gross hematuria anticoagulated needs cysto in operating room (clot evacuation) consent obtained from family Past History Past Medical History: CAD, COPD, hypertension, hyperlipidemia, PVD Past Surgical History: Other (Right leg surgery) Social history: , lives with family. denies: smoking, alcohol abuse, prescription drug abuse Family history: hypertension Medications and Allergies Allergies Allergy/AdvReac Type Severity Reaction Status Date / Time No Known Allergies Allergy Verified 12/12/13 06:46 Home Medications Medication Instructions Recorded Confirmed Last Taken Type Pravastatin Sodium 40 mg PO DAILY 12/12/13 07/27/18 07/27/18 History Clopidogrel [Plavix] 75 mg PO DAILY #30 tablet 04/03/15 07/27/18 07/27/18 Rx amLODIPine [Norvasc] 10 mg PO DAILY #30 tablet 04/03/15 07/27/18 07/27/18 Rx Fluticasone/Salmeterol [Advair 1 puff IH BID 12/31/15 07/27/18 07/27/18 History Diskus 250-50 mcg] ALBUTEROL Inhaler (OR & NICU) 2 puff IH QID PRN 07/27/18 07/27/18 Unknown History [Proair] Aspirin [Aspirin BABY CHEW TAB] 81 mg PO DAILY 07/27/18 07/27/18 07/27/18 History Cyanocobalamin (Vitamin B-12) 2,500 mcg PO DAILY 07/27/18 07/27/18 07/27/18 History [Vitamin B12] [place]-3S/Dha/Epa/Fish Oil/D3 [Fish 1 each PO DAILY 07/27/18 07/27/18 07/27/18 History Ixn-Rtrur-1-Vit D Softgel] Active Meds: Active Medications Acetaminophen (Tylenol) 650 mg OK Q4H PRN PRN Reason: Fever >101 Last Admin: 07/28/18 05:29 Dose: 650 mg Documented by: Amiodarone HCl (Cordarone) 200 mg PO BID [facility] Last Admin: 08/07/18 10:16 Dose: 200 mg Documented by: Lipase/Protease/Amylase (Pancreaze Dr 10,500 Unit) 1 each FEEDTUBE PRN PRN PRN Reason: For Clogged Feeding Tube Arformoterol Tartrate (Brovana Nebu) 15 mcg IH Q12HRT [facility] Last Admin: 08/07/18 08:45 Dose: 15 mcg Documented by: Budesonide (Pulmicort) 0.5 mg IH Q12HRT [facility] Last Admin: 08/07/18 08:45 Dose: 0.5 mg Documented by: Cyanocobalamin (Vitamin B-12) 2,500 mcg PO QDAY [facility] Last Admin: 08/07/18 10:01 Dose: 2,500 mcg Documented by: Diltiazem HCl (Cardizem) 60 mg PO Q4H [facility] Last Admin: 08/07/18 08:35 Dose: 60 mg Documented by: Famotidine (Pepcid) 20 mg PO BID [facility] Last Admin: 08/07/18 10:02 Dose: 20 mg Documented by: Hydrophilic Ointment (Vaseline Lip Therapy) 1 applic TP Q2HR PRN PRN Reason: Dry Lips Propofol (Diprivan 10 Mg/Ml) 1,000 mg in 100 mls @ 2.531 mls/hr IV TITR [facility]; Protocol Last Titration: 08/07/18 08:58 Dose: 0 mcg/kg/min, 0 mls/hr Documented by: Cefepime HCl (Maxipime/Ns 2 Gm/100 Ml) 2 gm in 100 mls @ 200 mls/hr IV Q12HR [facility]; Protocol Last Admin: 08/06/18 22:00 Dose: 200 mls/hr Documented by: Fentanyl Citrate (Fentanyl Drip Premix) 2,000 mcg in 100 mls @ 2.285 mls/hr IV TITR [facility]; Protocol Last Titration: 08/07/18 08:30 Dose: Infused Documented by: Insulin Glargine (Lantus) 20 units SUB-Q QHS [facility] Last Admin: 08/06/18 22:00 Dose: 20 units Documented by: Insulin Human Lispro (Humalog) 0 unit SUB-Q Q4HR [facility]; Protocol Last Admin: 08/07/18 10:16 Dose: 1 unit Documented by: Multi-Ingred Cream/Lotion/Oil/Oint (Artificial Tears Ophth Oint) 1 applic OU Q4HR PRN PRN Reason: Dry Eye(s) Pravastatin Sodium (Pravachol) 40 mg PO DAILY [facility] Last Admin: 08/07/18 10:01 Dose: 40 mg Documented by: Prednisone (Deltasone) 5 mg PO QDAY [facility] Stop: 08/08/18 10:01 Quetiapine Fumarate (Seroquel) 100 mg PO BID [facility] Last Admin: 08/07/18 10:02 Dose: 100 mg Documented by: Simple Syrup (Simple Syrup) 15 ml FEEDTUBE PRN PRN PRN Reason: Hypoglycemia Simple Syrup (Simple Syrup) 30 ml FEEDTUBE PRN PRN PRN Reason: Hypoglycemia Sodium Bicarbonate (Sodium Bicarbonate) 325 mg FEEDTUBE PRN PRN PRN Reason: For Clogged Feeding Tube Sodium Chloride (Sodium Chloride Flush Syringe 10 Ml) 10 ml IV BID [facility] Last Admin: 08/07/18 10:28 Dose: 10 ml Documented by: Sodium Chloride (Sodium Chloride Flush Syringe 10 Ml) 10 ml IV PRN PRN PRN Reason: LINE FLUSH Exam - Constitutional Vitals: Temp Pulse Resp BP Pulse Ox 98.2 F 91 H 33 H 140/62 91 08/07/18 08:00 08/07/18 11:00 08/07/18 11:00 08/07/18 11:00 08/07/18 11:00 Results - Labs CBC & Chem 7: 08/06/18 05:17 08/06/18 05:17 Labs: Abnormal lab results 08/06/18 08/06/18 08/06/18 Range/Units 15:03 17:48 22:53 POC ABG pCO2 (35-45) POC ABG pO2 (80-105) POC Glucose 229 H 188 H 146 H (70-105) 08/07/18 08/07/18 08/07/18 Range/Units 01:55 05:30 09:59 POC ABG pCO2 69.6 H (35-45) POC ABG pO2 64 L (80-105) POC Glucose 143 H 188 H (70-105)
[2018-08-07] MEDS: fentaNYL DRIP Premix 2,000 MCG/100 ML BAG IV SCH (12:05)
--- NOTE | 2018-08-07 13:08 | Progress Note ---
Assessment and Plan - Patient Problems (1) Acute respiratory failure Current Visit: Yes Status: Acute Qualifiers: Respiratory failure complication: hypoxia Qualified Code(s): J96.01 - Acute respiratory failure with hypoxia Plan to address problem: 08/06 - Pt in need of jail vent support. Slightly increased risk for open procedure as trachea dives down near sternal notch. May need proximal XLT trach. Discussed with sister (Surekha Morin - [phone]). Indications, procedures, risks, benefits discussed. all questions answered. Ok will proceeding. Will get telephone consent tomorrow as she is in [place] right now. Need to hold plavix. Discussed Dr. Frederick. She was ok with holding it. Will try to schedule on the . No new events today. Unable to reach sister today for phone consent. Will try again another time. Briefly discussed plan with Rosario (girlfriend). She had no objections. Still trying to make arrangements for Wednesday. Please call with questions. time=10min Subjective Date of service: 08/07/18 Patient Reports: Positive: other (no new events) Objective Vital Signs - 12hr 08/07/18 08/07/18 08/07/18 01:30 01:40 02:00 Temperature Pulse Rate 67 72 67 Pulse Rate [ Bilateral] Pulse Rate [ From Monitor] Pulse Rate [ Right Radial] Respiratory 17 19 Rate Respiratory Rate [Bilateral ] Respiratory Rate [Head] Blood Pressure 122/57 136/64 120/58 O2 Sat by Pulse 92 89 Oximetry 08/07/18 08/07/18 08/07/18 02:30 03:00 03:30 Temperature Pulse Rate 68 67 66 Pulse Rate [ Bilateral] Pulse Rate [ From Monitor] Pulse Rate [ Right Radial] Respiratory 20 18 14 Rate Respiratory Rate [Bilateral ] Respiratory Rate [Head] Blood Pressure 119/62 116/60 114/59 O2 Sat by Pulse 91 92 93 Oximetry 08/07/18 08/07/18 08/07/18 04:00 04:30 05:00 Temperature 98.3 F Pulse Rate 68 68 67 Pulse Rate [ Bilateral] Pulse Rate [ 84 From Monitor] Pulse Rate [ 84 Right Radial] Respiratory 18 22 18 Rate Respiratory Rate [Bilateral ] Respiratory Rate [Head] Blood Pressure 115/60 128/61 110/58 O2 Sat by Pulse 95 91 Oximetry 12/08/07/18 08/07/18 05:02 05:30 06:00 Temperature Pulse Rate 68 68 Pulse Rate [ Bilateral] Pulse Rate [ From Monitor] Pulse Rate [ Right Radial] Respiratory 16 18 14 Rate Respiratory Rate [Bilateral ] Respiratory Rate [Head] Blood Pressure 112/58 113/59 O2 Sat by Pulse 92 92 Oximetry 08/07/18 08/07/18 08/07/18 06:30 07:00 07:30 Temperature Pulse Rate 69 69 71 Pulse Rate [ Bilateral] Pulse Rate [ From Monitor] Pulse Rate [ Right Radial] Respiratory 22 20 21 Rate Respiratory Rate [Bilateral ] Respiratory Rate [Head] Blood Pressure 110/58 118/53 121/56 O2 Sat by Pulse 97 94 97 Oximetry 08/07/18 08/07/18 08/07/18 08:00 08:30 08:35 Temperature 98.2 F Pulse Rate 74 74 75 Pulse Rate [ Bilateral] Pulse Rate [ 72 From Monitor] Pulse Rate [ Right Radial] Respiratory 16 23 Rate Respiratory Rate [Bilateral ] Respiratory Rate [Head] Blood Pressure 121/52 124/61 124/61 O2 Sat by Pulse 97 89 Oximetry 08/07/18 08/07/18 08/07/18 08:48 09:00 09:30 Temperature Pulse Rate 73 67 Pulse Rate [ 76 Bilateral] Pulse Rate [ From Monitor] Pulse Rate [ Right Radial] Respiratory 16 16 Rate Respiratory 21 Rate [Bilateral ] Respiratory Rate [Head] Blood Pressure 104/51 103/52 O2 Sat by Pulse 96 Oximetry 08/07/18 08/07/18 08/07/18 10:00 10:30 11:00 Temperature Pulse Rate 81 86 91 H Pulse Rate [ Bilateral] Pulse Rate [ From Monitor] Pulse Rate [ Right Radial] Respiratory 30 H 32 H 33 H Rate Respiratory Rate [Bilateral ] Respiratory 19 Rate [Head] Blood Pressure 113/54 139/64 140/62 O2 Sat by Pulse 93 91 91 Oximetry 08/07/18 12:00 Temperature 99.4 F Pulse Rate Pulse Rate [ Bilateral] Pulse Rate [ From Monitor] Pulse Rate [ Right Radial] Respiratory Rate Respiratory Rate [Bilateral ] Respiratory Rate [Head] Blood Pressure O2 Sat by Pulse Oximetry - General physical appearance no distress, no pain - ENT other (ETT and feeding tubes in place) - Respiratory normal expansion, normal respiratory effort - Abdomen soft - Labs 08/06/18 05:17 08/06/18 05:17
--- NOTE | 2018-08-07 14:00 | Progress Note ---
Assessment and Plan Awaiting PEG and trach. No anticoagulation at this time. - Patient Problems (1) CARLEE (acute kidney injury) Current Visit: Yes Status: Resolved (2) Acidosis Current Visit: Yes Status: Resolved (3) Acute respiratory failure Current Visit: Yes Status: Acute Qualifiers: Respiratory failure complication: hypoxia Qualified Code(s): J96.01 - Acute respiratory failure with hypoxia (4) Atrial fibrillation Current Visit: Yes Status: Resolved Qualifiers: Atrial fibrillation type: persistent Qualified Code(s): I48.1 - Persistent atrial fibrillation (5) CHF (congestive heart failure) Current Visit: Yes Status: Acute Qualifiers: Heart failure type: systolic Heart failure chronicity: acute Qualified Code(s): I50.21 - Acute systolic (congestive) heart failure (6) Hematuria Current Visit: Yes Status: Resolved (7) Lactic acid acidosis Current Visit: Yes Status: Resolved (8) Pneumonia Current Visit: Yes Status: Acute (9) SIRS (systemic inflammatory response syndrome) Current Visit: Yes Status: Acute (10) COPD (chronic obstructive pulmonary disease) Current Visit: Yes Status: Chronic (11) Hyperlipemia Current Visit: Yes Status: Chronic Qualifiers: Hyperlipidemia type: Mixed hyperlipidemia (12) Hypertension Current Visit: Yes Status: Chronic Qualifiers: Hypertension type: essential hypertension Qualified Code(s): I10 - Essential (primary) hypertension (13) Nonobstructive atherosclerosis of coronary artery Current Visit: Yes Status: Chronic (14) Peripheral vascular disease Current Visit: Yes Status: Chronic (15) Acute blood loss anemia Current Visit: No Status: Acute (16) COPD exacerbation Current Visit: No Status: Acute (17) Cavitary pneumonia Current Visit: No Status: Acute (18) Respiratory failure Current Visit: No Status: Acute (19) S/P vascular surgery Current Visit: No Status: Acute (20) Atherosclerosis of [place] arteries of the extremities with intermittent claudication Current Visit: No Status: Chronic Subjective Date of service: 08/07/18 Principal diagnosis: AFib Interval history: Intubated,sedated, NSR with APCs. Evaluated by Surgeryfor PEG and Tracheostomy. Objective Vital Signs Temp Pulse Pulse Pulse Pulse Resp Resp 08/07/18 13:30 80 08/07/18 12:00 99.4 F 08/07/18 11:00 91 H 33 H 08/07/18 10:30 86 32 H 08/07/18 10:00 81 30 H 18 09:30 67 16 18 09:00 73 16 18 08:48 76 21 18 08:35 75 18 08:30 74 23 18 08:00 98.2 F 74 72 16 08/07/18 07:30 71 21 08/07/18 07:00 69 20 08/07/18 06:30 69 22 08/07/18 06:00 68 14 08/07/18 05:30 68 18 08/07/18 05:02 16 08/07/18 05:00 67 18 08/07/18 04:30 68 22 08/07/18 04:00 98.3 F 68 84 84 18 08/07/18 03:30 66 14 08/07/18 03:00 67 18 08/07/18 02:30 68 20 08/07/18 02:00 67 19 08/07/18 01:40 72 08/07/18 01:30 67 17 08/07/18 01:00 66 19 08/07/18 00:30 67 16 08/07/18 00:20 67 08/07/18 00:00 98.3 F 68 67 67 19 18 23:30 65 23 18 23:05 69 08/06/18 23:00 68 19 18 22:30 74 21 18 22:00 67 22 18 21:30 71 20 18 21:00 70 14 18 20:30 78 27 H 08/06/18 20:00 99.3 F 75 84 84 18 08/06/18 19:56 83 18 18 19:46 81 81 18 08/06/18 19:45 19 08/06/18 19:30 67 12 08/06/18 19:00 73 21 08/06/18 18:30 75 17 08/06/18 18:10 76 20 08/06/18 18:00 73 19 18 17:30 75 23 08/06/18 17:12 74 08/06/18 17:00 76 24 08/06/18 16:30 79 21 18 16:00 98.2 F 82 76 18 08/06/18 15:30 80 20 08/06/18 15:00 85 22 08/06/18 14:30 84 16 08/06/18 14:00 86 29 H Resp BP Pulse Ox 08/07/18 13:30 121/57 08/07/18 12:00 08/07/18 11:00 140/62 91 08/07/18 10:30 139/64 91 08/07/18 10:00 19 113/54 93 08/07/18 09:30 103/52 08/07/18 09:00 104/51 96 08/07/18 08:48 08/07/18 08:35 124/61 08/07/18 08:30 124/61 89 08/07/18 08:00 121/52 97 08/07/18 07:30 121/56 97 08/07/18 07:00 118/53 94 08/07/18 06:30 110/58 97 08/07/18 06:00 113/59 92 08/07/18 05:30 112/58 92 08/07/18 05:02 08/07/18 05:00 110/58 08/07/18 04:30 128/61 91 08/07/18 04:00 115/60 95 08/07/18 03:30 114/59 93 08/07/18 03:00 116/60 92 08/07/18 02:30 119/62 91 08/07/18 02:00 120/58 89 08/07/18 01:40 136/64 08/07/18 01:30 122/57 92 08/07/18 01:00 122/61 92 08/07/18 00:30 122/59 91 18 00:20 122/57 08/07/18 00:00 126/54 92 18 23:30 120/57 93 18 23:05 113/58 93 18 23:00 113/58 94 08/06/18 22:30 116/52 92 18 22:00 107/51 95 08/06/18 21:30 109/50 94 18 21:00 114/57 95 08/06/18 20:30 140/61 97 08/06/18 20:00 138/67 95 08/06/18 19:56 08/06/18 19:46 116/53 95 08/06/18 19:45 08/06/18 19:30 117/53 95 08/06/18 19:00 117/48 92 08/06/18 18:30 103/48 92 08/06/18 18:10 109/50 93 08/06/18 18:00 109/50 92 08/06/18 17:30 110/53 92 08/06/18 17:12 113/52 93 08/06/18 17:00 113/52 92 08/06/18 16:30 120/54 95 08/06/18 16:00 114/53 93 08/06/18 15:30 126/56 93 08/06/18 15:00 131/62 92 08/06/18 14:30 120/59 93 08/06/18 14:00 134/59 93 - Physical Examination General: Other (intubated, sedated) HEENT: Positive: EOMI, Normocephaly, Mucus Membranes Moist Neck: Positive: neck supple, trachea midline Cardiac: Positive: Reg Rate and Rhythm Lungs: Positive: clear to auscultation, Normal Breath Sounds, Other (On vent 40% FIO2, PEEP 8) Neuro: Positive: Other (intubated, sedated) Abdomen: Positive: Soft, Active Bowel Sounds Skin: Negative: Rash, Wound Musculoskeletal: No Fluid Collection, No Pain, Normal Range of Motion Extremities: Present: upper extr. pulses, lower extr. pulses. Absent: edema - Imaging and Cardiology EKG: report reviewed, image reviewed Echo: report reviewed ( 07/27/2018 EF 60-65%, asymmetric septal hypertrophy, mild TR. 05/2017 showed EF 55-60%, grade 1 diastolic dysfunction, mild TR, RVSP 22mmHg. 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 Treat medically. ) - Telemetry EKG Rhythm: Sinus Rhythm - EKG Supraventricular dysrhythmia: atrial premature complexe - Allied health notes Allied health notes reviewed: nursing
--- NOTE | 2018-08-07 14:33 | Event Note ---
Date: 08/07/18 Able to reach sister (Lucretia). Telephone consent completed. Consent on chart.
[2018-08-07 15:18] LABS: Hematocrit 32.2 % (35.5-45.6); Hemoglobin 10.3 gm/dl (11.8-15.2)
[2018-08-07 15:28] LABS: INR 0.98 (0.87-1.13)
[2018-08-07 15:29] LABS: Partial Thromboplastin Time 23.2 Sec. (24.2-36.6)
[2018-08-07] MEDS: HEPARIN/ 0.45% NACL-25,000 UNIT/500 ML 25,000 UNIT/500 ML BAG IV SCH (16:32)
--- NOTE | 2018-08-07 16:57 | Progress Note ---
Assessment and Plan Assessment and plan: Sepsis; - Blood cultures reveal Streptococcus anginosus. - ID consulted and change antibiotics to cefepime to be completed on08/08 Left lower lobe pneumonia; - Continue antibiotics. - Sputum culture revealed Pseudomonas and staph Acute hypoxemic respiratory failure - Continue on mechanical ventilation and weaning per pulmonary - CXR showed vascular congestion Atrial fibrillation - Continue amiodarone and diltiazem. - Cardiology following. - Check echocardiogram. Acute renal failure - Etiology likely secondary to sepsis/ATN. - Renal ultrasound unremarkable. COPD exacerbation. - Continue bronchodilators/nebulizers. - IV steroids. Hypertension. - Resume antihypertensive medications as needed. Hyperlipidemia. - Peripheral vascular disease. The high probability of a clinically significant, sudden or life threatening deterioration of the [respiratory] system(s) required my full and direct attention, intervention and personal management. The aggregate critical care time was [32] minutes. This time is in addition to time spent performing reported procedures but includes the following: [x] Data Review and interpretation [x] Patient assessment and monitoring of vital signs [x] Documentation [x] Medication orders and management History Interval history: 73 YO Male with H/O COPD, PVD, HTN, HLD, Seizure Disorder, Skin Cancer presents to ED for evaluation. Pt states that he has experienced shortness and chest palpitations over the past 2 days with worsening symptoms over the past 1 day. Pt acknowledges decreased exercise tolerance, as well as dyspnea on exertion. Pt was seen and evaluated by his magnetic locater today and was sent to [facility] ED for further care and evaluation. Pt denies fever, chills, leg swelling, calf pain, CP with deep breathing, hemoptysis, Prolonged air/car travel, or immobility, Back Pain, Syncope, Lightheadedness, recent ill contacts, unintentional weight loss, night sweats, or bone pain. Pt seen and evaluated in ED and found to have Atrial Fib with RVR refractory to cardizem drip, but improved with Amiodarone Drip, Acute Hypoxemic Respiratory Failure, SIRS. Pt admitted to ICU. The patient later after admission had further decompensation with respiratory distress. Patient reportedly was satting 60-70% on a nonrebreather and had to be emergently intubated. The patient remains intubated on mechanical ventilation History Interval history: Patient was seen and evaluated this morning, patient was not able to communicate. Intubated and on mechanical ventilation. Hospitalist Physical - Physical exam Narrative exam: Patient is intubated and on mechanical ventilation. The patient is obese. Vital signs as documented. Head exam is unremarkable. No scleral icterus . Neck is without jugular venous distension, thyromegaly, or carotid bruits. Lungs are clear to auscultation. Cardiac exam reveals regular rate and Rhythm. Abdominal exam reveals normal bowel sounds. Extremities are nonedematous and both femoral and pedal pulses are normal. 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 - Constitutional Vitals: Temp Pulse Resp BP Pulse Ox 99 F 82 30 H 118/55 95 08/07/18 16:00 08/07/18 16:46 08/07/18 12:00 08/07/18 16:46 08/07/18 12:50 General appearance: Present: no acute distress, other (intubated on mechanical ventilation) Results - Labs CBC & Chem 7: 08/07/18 15:08 08/06/18 05:17 Labs: Laboratory Last Values WBC 18.9 K/mm3 (4.5-11.0) H 08/06/18 05:17 RBC 3.06 M/mm3 (3.65-5.03) L 08/06/18 05:17 Hgb 10.3 gm/dl (11.8-15.2) L 08/07/18 15:08 Hct 32.2 % (35.5-45.6) L 08/07/18 15:08 MCV 102 fl (84-94) H 08/06/18 05:17 MCH 33 pg (28-32) H 08/06/18 05:17 MCHC 33 % (32-34) 08/06/18 05:17 RDW 16.1 % (13.2-15.2) H 08/06/18 05:17 Plt Count 221 K/mm3 (140-440) 08/07/18 15:08 Add Manual Diff Complete 08/05/18 12:39 Total Counted 100 08/05/18 12:39 Seg Neutrophils % Pc Analyst 08/05/18 12:39 Seg Neuts % (Manual) 88.0 % (40.0-70.0) H 08/05/18 12:39 Band Neutrophils % 2.0 % 08/05/18 12:39 Lymphocytes % (Manual) 4.0 % (13.4-35.0) L 08/05/18 12:39 Reactive Lymphs % (Man) 0 % 08/05/18 12:39 Monocytes % (Manual) 3.0 % (0.0-7.3) 08/05/18 12:39 Eosinophils % (Manual) 0 % (0.0-4.3) 08/05/18 12:39 Basophils % (Manual) 0 % (0.0-1.8) 08/05/18 12:39 Metamyelocytes % 2.0 % 08/05/18 12:39 Myelocytes % 1.0 % 08/05/18 12:39 Promyelocytes % 0 % 08/05/18 12:39 Blast Cells % 0 % 08/05/18 12:39 Nucleated RBC % Not Reportable 08/05/18 12:39 Seg Neutrophils # Man 19.2 K/mm3 (1.8-7.7) H 08/05/18 12:39 Band Neutrophils # 0.4 K/mm3 08/05/18 12:39 Lymphocytes # (Manual) 0.9 K/mm3 (1.2-5.4) L 08/05/18 12:39 Abs React Lymphs (Man) 0.0 K/mm3 08/05/18 12:39 Monocytes # (Manual) 0.7 K/mm3 (0.0-0.8) 08/05/18 12:39 Eosinophils # (Manual) 0.0 K/mm3 (0.0-0.4) 08/05/18 12:39 Basophils # (Manual) 0.0 K/mm3 (0.0-0.1) 08/05/18 12:39 Metamyelocytes # 0.4 K/mm3 08/05/18 12:39 Myelocytes # 0.2 K/mm3 08/05/18 12:39 Promyelocytes # 0.0 K/mm3 08/05/18 12:39 Blast Cells # 0.0 K/mm3 08/05/18 12:39 Pathologist Review 07/28/18 06:01 WBC Morphology Not Reportable 08/05/18 12:39 Hypersegmented Neuts Not Reportable 08/05/18 12:39 Hyposegmented Neuts Not Reportable 08/05/18 12:39 Hypogranular Neuts Not Reportable 08/05/18 12:39 Smudge Cells Not Reportable 08/05/18 12:39 Toxic Granulation Not Reportable 08/05/18 12:39 Toxic Vacuolation Not Reportable 08/05/18 12:39 Dohle Bodies Not Reportable 08/05/18 12:39 Pelger-Huet Anomaly Not Reportable 08/05/18 12:39 Janiya Rods Not Reportable 08/05/18 12:39 Platelet Estimate Consistent w auto 08/05/18 12:39 Clumped Platelets Not Reportable 08/05/18 12:39 Plt Clumps, EDTA Not Reportable 08/05/18 12:39 Large Platelets Not Reportable 08/05/18 12:39 Giant Platelets Not Reportable 08/05/18 12:39 Platelet Satelliting Not Reportable 08/05/18 12:39 Plt Morphology Comment Not Reportable 08/05/18 12:39 RBC Morphology Not Reportable 08/05/18 12:39 Dimorphic RBCs Not Reportable 08/05/18 12:39 Polychromasia Not Reportable 08/05/18 12:39 Hypochromasia 1+ 08/05/18 12:39 Poikilocytosis Not Reportable 08/05/18 12:39 Anisocytosis 1+ 08/05/18 12:39 Microcytosis Not Reportable 08/05/18 12:39 Macrocytosis 1+ 08/05/18 12:39 Spherocytes Not Reportable 08/05/18 12:39 Pappenheimer Bodies Not Reportable 08/05/18 12:39 Sickle Cells Not Reportable 08/05/18 12:39 Target Cells Few 08/05/18 12:39 Tear Drop Cells Not Reportable 08/05/18 12:39 Ovalocytes Not Reportable 08/05/18 12:39 Helmet Cells Not Reportable 08/05/18 12:39 Lr-[place] Bodies Not Reportable 08/05/18 12:39 [place] Rings Not Reportable 08/05/18 12:39 [place] Cells Not Reportable 08/05/18 12:39 Bite Cells Not Reportable 08/05/18 12:39 Crenated Cell Not Reportable 08/05/18 12:39 Elliptocytes Not Reportable 08/05/18 12:39 Acanthocytes (Spur) Not Reportable 08/05/18 12:39 Rouleaux Not Reportable 08/05/18 12:39 Hemoglobin C Crystals Not Reportable 08/05/18 12:39 Schistocytes Not Reportable 08/05/18 12:39 Malaria parasites Not Reportable 08/05/18 12:39 Jigar Bodies Not Reportable 08/05/18 12:39 Hem Pathologist Commnt No 08/05/18 12:39 PT 13.4 Sec. (12.2-14.9) 08/07/18 15:08 INR 0.98 (0.87-1.13) 08/07/18 15:08 APTT 23.2 Sec. (24.2-36.6) L 08/07/18 15:08 D-Dimer 798.17 ng/mlDDU (0-234) H 07/27/18 15:52 Heparin Anti-Xa Level < 0.10 U.I./ml (0.3-0.7) L 08/05/18 17:30 POC ABG pH 7.410 (7.35-7.45) 08/07/18 05:30 POC ABG pCO2 69.6 (35-45) H 08/07/18 05:30 POC ABG pO2 64 (80-105) L 08/07/18 05:30 POC ABG HCO3 44.1 08/07/18 05:30 POC ABG Total CO2 46 08/07/18 05:30 POC ABG O2 Sat 91 08/07/18 05:30 POC ABG Base Excess 19 08/07/18 05:30 FiO2 40 % 08/07/18 05:30 Sodium 142 mmol/L (137-145) 08/06/18 05:17 Potassium 4.1 mmol/L (3.6-5.0) 08/06/18 05:17 Chloride 98.0 mmol/L (98-107) 08/06/18 05:17 Carbon Dioxide 37 mmol/L (22-30) H 08/06/18 05:17 Anion Gap 11 mmol/L 08/06/18 05:17 BUN 37 mg/dL (9-20) H 08/06/18 05:17 Creatinine 0.5 mg/dL (0.8-1.5) L 08/06/18 05:17 Estimated GFR > 60 ml/min 08/06/18 05:17 BUN/Creatinine Ratio 74 % 08/06/18 05:17 Glucose 226 mg/dL (75-100) H 08/06/18 05:17 POC Glucose 223 (70-105) H 08/07/18 14:16 Lactic Acid 1.30 mmol/L (0.7-2.0) 08/03/18 16:48 Calcium 9.4 mg/dL (8.4-10.2) 08/06/18 05:17 Phosphorus 2.80 mg/dL (2.5-4.5) 08/06/18 05:17 Magnesium 2.30 mg/dL (1.7-2.3) 08/06/18 05:17 Total Bilirubin 1.30 mg/dL (0.1-1.2) H 07/27/18 12:59 AST 15 units/L (5-40) 07/27/18 12:59 ALT 16 units/L (7-56) 07/27/18 12:59 Alkaline Phosphatase 62 units/L (35-129) 07/27/18 12:59 Troponin T < 0.010 ng/mL (0.00-0.029) 07/27/18 12:59 C-Reactive Protein 2.30 mg/dL (0.00-1.30) H 08/03/18 16:48 NT-Pro-B Natriuret Pep 3913 pg/mL (0-900) H 07/27/18 12:59 Total Protein 6.2 g/dL (6.3-8.2) L 07/27/18 12:59 Albumin 3.6 g/dL (3.9-5) L 07/27/18 12:59 Albumin/Globulin Ratio 1.4 % 07/27/18 12:59 Triglycerides 142 mg/dL (2-149) 08/01/18 04:13 TSH 1.180 mlU/mL (0.270-4.200) 07/27/18 15:52 Free T4 1.28 ng/dL (0.76-1.46) 07/27/18 15:52 Urine Color Yellow (Yellow) 07/29/18 09:24 Urine Turbidity Cloudy (Clear) 07/29/18 09:24 Urine pH 5.0 (5.0-7.0) 07/29/18 09:24 Ur Specific [place] 1.017 (1.003-1.030) 07/29/18 09:24 Urine Protein 30 mg/dl mg/dL (Negative) 07/29/18 09:24 Urine Glucose (UA) Neg mg/dL (Negative) 07/29/18 09:24 Urine Ketones Neg mg/dL (Negative) 07/29/18 09:24 Urine Blood Mod (Negative) 07/29/18 09:24 Urine Nitrite Neg (Negative) 07/29/18 09:24 Urine Bilirubin Neg (Negative) 07/29/18 09:24 Urine Urobilinogen < 2.0 mg/dL (<2.0) 07/29/18 09:24 Ur Leukocyte Esterase Mod (Negative) 07/29/18 09:24 Urine WBC (Auto) 29.0 /HPF (0.0-6.0) H 07/29/18 09:24 Urine RBC (Auto) 7.0 /HPF (0.0-6.0) 07/29/18 09:24 U Epithel Cells (Auto) 2.0 /HPF (0-13.0) 07/29/18 09:24 Urine Bacteria (Auto) 1+ /HPF (Negative) 07/29/18 09:24 Urine Mucus Few /HPF 07/29/18 09:24 Urine Yeast (Budding) 1+ /HPF 07/29/18 09:24 Urine Creatinine 72.3 mg/dL (0.1-20.0) H 07/29/18 09:24 Urine Sodium 12 mmol/L 07/29/18 09:24 Random Vancomycin 9.2 ug/mL (0-40.0) 07/29/18 04:21 Nutrition/Malnutrition Assess - Dietary Evaluation Nutrition/Malnutrition Findings: Nutrition Notes Start: 07/28/18 10:54 Freq: Status: Active Protocol: Document 08/04/18 10:13 TW (Rec: 08/04/18 10:46 TW [id number]) Co-Sign 08/04/18 10:13 LP Nutrition Notes Initial or Follow up Reassessment Current Diagnoses Acute Kidney Injury COPD Sepsis Hypertension Heart Failure Respiratory Failure Other Pertinent Diagnosis Hx of Skin Cancer Current Diet Nepro at 50ml/hr Labs/Tests BUN: 35 Cr: 0.6 Medications Propofol at 2.53mL/hr (67 lipid kcal) Solumedrol Height 5 ft 8 in Weight 87.6 kg [place] Body Weight (lbs) 154.0 BMI 29.3 Weight change and time frame Wt. change noted. Subjective/Other Information Nepro infusing at goal rate of 50mL/hr. Per RN, pt. tolerating TF well. Percent of energy/protein needs met: 100%/69% Burn Absent Trauma Absent #1 Nutrition Diagnoses Inadequate oral intake Diagnosis Progress(for reassessment Continues documentation) Is patient on ventilator? Yes Is Patient Ambulatory and/or Out of Bed No REE-([facility]-confined to bed) [phone] Calculation Used for Recommendations [facility] Additional Notes protein (2g/kg IBW): 140g daily fluid: 1mL/kcal Nutrition Intervention Change Diet Order: Continue TF Nutrition Support: Nepro at 50mL/hr 250 mL free water flush q4h or per MD. Kcal 2,160 Protein (gm) 97 Fluid (mL) 872 Goal #1 TF tolerance and rate Goal #2 Meet at least 80% of kcal needs and 80-100% of protein needs. Anticipated Discharge Needs: unable to determine at this time Follow-Up By: 08/10/18 Additional Comments F/U for stable TF
[2018-08-08] MEDS: CARDIZEM PO SCH ×6 (00:10→22:23)
[2018-08-08] MEDS: LANTUS SUB-Q SCH ×2 (00:38→22:24)
[2018-08-08] MEDS: HumaLOG SUB-Q SCH ×5 (02:00→18:00)
[2018-08-08 02:50] LABS: Hematocrit 29.9 % (35.5-45.6); Hemoglobin 9.5 gm/dl (11.8-15.2); Mean Corpuscular HGB Conc 32 % (32-34); Mean Corpuscular Volume 104 fl (84-94); Platelet Count 205 K/mm3 (140-440); Red Blood Count 2.88 M/mm3 (3.65-5.03); Red Cell Distribution Width 16.8 % (13.2-15.2)
[2018-08-08 03:11] LABS: BUN/Creatinine Ratio 58; Blood Urea Nitrogen 29 mg/dL (9-20); Calcium 8.9 mg/dL (8.4-10.2); Hemolysis Index 23
[2018-08-08 07:02] LABS: Band Neutrophils # (Manual) 0.7 K/mm3; Eosinophils % (Manual) 0 % (0.0-4.3); Total Cells Counted 100
[2018-08-08 07:03] LABS: Anisocytosis 1+; Basophils % (Manual) 0 % (0.0-1.8); Hypochromasia Few; Stomatocytes Few
[2018-08-08] MEDS: PULMICORT IH SCH ×2 (07:20→19:55)
[2018-08-08] MEDS: BROVANA NEBU IH SCH ×2 (07:20→19:55)
--- NOTE | 2018-08-08 08:13 | Fluoroscopy Report ---
Static cystogram in OR: Gross hematuria. The initial images demonstrate what appears to be a pelvic mass like area centrally. Following placement of a transurethral catheter injection of contrast was made filling a distended bladder consistent with the pelvic opacity seen on the initial image. There is some overlying bowel gas but no other filling defect is identified on this rather limited visualization. A post drainage image demonstrates a significant residual of contrast with moderate bladder distention. Impressions: Bladder distention with significant drainage residual.
--- NOTE | 2018-08-08 08:34 | Progress Note ---
Assessment and Plan 1. Acute kidney injury: Likely Vasomotor / hemodynamic CARLEE in the setting of A.fib with RVR. Renal function has improved and stable. 2. FEN: Hypernatremia, improved. Continue water flushes. Monitor. 3. A.fib: On Amiodarone and Cardizem. 4. Respiratory failure: On vent. 5. Hematuria: S/p Cysto. Will see him again as needed. Subjective Date of service: 08/08/18 Principal diagnosis: AFib Interval history: Patient was seen and examined at the bedside. Objective - Vital Signs Vital signs: Vital Signs - 12hr 08/07/18 08/07/18 08/07/18 20:45 21:00 21:15 Temperature Pulse Rate 77 82 82 Pulse Rate [ Anterior Bilateral Throughout] Pulse Rate [ From Monitor] Respiratory 27 H 29 H 28 H Rate Respiratory Rate [Anterior Bilateral Throughout] Blood Pressure 109/47 110/48 107/51 O2 Sat by Pulse 87 87 87 Oximetry 08/07/18 08/07/18 08/07/18 21:30 21:40 21:45 Temperature Pulse Rate 83 70 81 Pulse Rate [ Anterior Bilateral Throughout] Pulse Rate [ From Monitor] Respiratory 25 H 21 Rate Respiratory Rate [Anterior Bilateral Throughout] Blood Pressure 110/50 109/64 105/51 O2 Sat by Pulse 88 89 Oximetry 08/07/18 08/07/18 08/07/18 22:00 22:15 22:30 Temperature Pulse Rate 86 85 81 Pulse Rate [ Anterior Bilateral Throughout] Pulse Rate [ From Monitor] Respiratory 25 H 24 26 H Rate Respiratory Rate [Anterior Bilateral Throughout] Blood Pressure 107/55 117/54 111/54 O2 Sat by Pulse 90 91 92 Oximetry 08/07/18 08/07/18 08/07/18 22:45 23:00 23:15 Temperature Pulse Rate 80 83 82 Pulse Rate [ Anterior Bilateral Throughout] Pulse Rate [ From Monitor] Respiratory 21 18 21 Rate Respiratory Rate [Anterior Bilateral Throughout] Blood Pressure 115/51 112/52 121/55 O2 Sat by Pulse 93 93 92 Oximetry 08/07/18 08/07/18 08/07/18 23:23 23:30 23:45 Temperature 100 F H Pulse Rate 79 83 Pulse Rate [ Anterior Bilateral Throughout] Pulse Rate [ From Monitor] Respiratory 22 21 Rate Respiratory Rate [Anterior Bilateral Throughout] Blood Pressure 119/57 127/53 O2 Sat by Pulse 91 92 Oximetry 12/23/18 12/23/18 12/24/18 23:47 23:50 00:00 Temperature Pulse Rate 86 85 Pulse Rate [ Anterior Bilateral Throughout] Pulse Rate [ 67 From Monitor] Respiratory 22 18 22 Rate Respiratory Rate [Anterior Bilateral Throughout] Blood Pressure 127/53 124/53 O2 Sat by Pulse 94 93 92 Oximetry 08/08/18 08/08/18 08/08/18 00:06 00:10 00:15 Temperature Pulse Rate 84 68 84 Pulse Rate [ Anterior Bilateral Throughout] Pulse Rate [ From Monitor] Respiratory 22 23 Rate Respiratory Rate [Anterior Bilateral Throughout] Blood Pressure 124/53 124/65 122/53 O2 Sat by Pulse 93 91 Oximetry 08/08/18 08/08/18 08/08/18 00:30 00:35 00:46 Temperature Pulse Rate 81 82 85 Pulse Rate [ Anterior Bilateral Throughout] Pulse Rate [ From Monitor] Respiratory 24 26 H Rate Respiratory Rate [Anterior Bilateral Throughout] Blood Pressure 128/57 115/51 132/56 O2 Sat by Pulse 92 94 93 Oximetry 08/08/18 08/08/18 08/08/18 01:00 01:15 01:30 Temperature Pulse Rate 87 85 87 Pulse Rate [ Anterior Bilateral Throughout] Pulse Rate [ From Monitor] Respiratory 24 21 23 Rate Respiratory Rate [Anterior Bilateral Throughout] Blood Pressure 124/50 125/50 121/57 O2 Sat by Pulse 93 92 91 Oximetry 08/08/18 08/08/18 08/08/18 01:45 02:00 02:15 Temperature Pulse Rate 84 82 84 Pulse Rate [ Anterior Bilateral Throughout] Pulse Rate [ From Monitor] Respiratory 17 22 24 Rate Respiratory Rate [Anterior Bilateral Throughout] Blood Pressure 124/57 125/54 124/57 O2 Sat by Pulse 91 90 91 Oximetry 08/08/18 08/08/18 08/08/18 02:30 02:45 03:00 Temperature Pulse Rate 83 82 83 Pulse Rate [ Anterior Bilateral Throughout] Pulse Rate [ From Monitor] Respiratory 22 18 20 Rate Respiratory Rate [Anterior Bilateral Throughout] Blood Pressure 121/57 124/58 122/57 O2 Sat by Pulse 91 93 92 Oximetry 08/08/18 08/08/18 08/08/18 03:14 03:15 03:30 Temperature 100.2 F H Pulse Rate 83 81 Pulse Rate [ Anterior Bilateral Throughout] Pulse Rate [ From Monitor] Respiratory 20 21 Rate Respiratory Rate [Anterior Bilateral Throughout] Blood Pressure 123/57 117/54 O2 Sat by Pulse 92 92 Oximetry 08/08/18 08/08/18 08/08/18 03:45 04:00 04:05 Temperature Pulse Rate 81 81 82 Pulse Rate [ Anterior Bilateral Throughout] Pulse Rate [ 88 From Monitor] Respiratory 19 18 Rate Respiratory Rate [Anterior Bilateral Throughout] Blood Pressure 120/59 124/58 124/58 O2 Sat by Pulse 91 91 92 Oximetry 08/08/18 08/08/18 08/08/18 04:15 04:19 04:30 Temperature Pulse Rate 81 85 85 Pulse Rate [ Anterior Bilateral Throughout] Pulse Rate [ From Monitor] Respiratory 22 27 H Rate Respiratory Rate [Anterior Bilateral Throughout] Blood Pressure 117/68 117/68 128/61 O2 Sat by Pulse 90 91 Oximetry 08/08/18 08/08/18 08/08/18 04:45 05:00 05:15 Temperature Pulse Rate 89 90 86 Pulse Rate [ Anterior Bilateral Throughout] Pulse Rate [ From Monitor] Respiratory 27 H 17 28 H Rate Respiratory Rate [Anterior Bilateral Throughout] Blood Pressure 128/61 131/62 126/63 O2 Sat by Pulse 90 89 91 Oximetry 08/08/18 08/08/18 08/08/18 05:30 05:45 06:00 Temperature Pulse Rate 85 82 82 Pulse Rate [ Anterior Bilateral Throughout] Pulse Rate [ From Monitor] Respiratory 21 24 20 Rate Respiratory Rate [Anterior Bilateral Throughout] Blood Pressure 111/55 117/55 116/54 O2 Sat by Pulse 90 89 Oximetry 08/08/18 08/08/18 08/08/18 06:15 06:30 06:45 Temperature Pulse Rate 81 82 82 Pulse Rate [ Anterior Bilateral Throughout] Pulse Rate [ From Monitor] Respiratory 20 21 22 Rate Respiratory Rate [Anterior Bilateral Throughout] Blood Pressure 119/56 113/56 120/57 O2 Sat by Pulse 89 89 88 Oximetry 08/08/18 08/08/18 07:20 08:27 Temperature Pulse Rate 85 86 Pulse Rate [ 83 Anterior Bilateral Throughout] Pulse Rate [ From Monitor] Respiratory Rate Respiratory 20 Rate [Anterior Bilateral Throughout] Blood Pressure 135/61 115/58 O2 Sat by Pulse 94 Oximetry - General Appearance General appearance: well-developed, appears stated age, intubated, other (on vent) EENT: ATNC, PERRL Neck: supple Respiratory: Present: Clear to Ascultation Cardiology: S1S2, no murmurs Gastrointestinal: normoactive bowel sounds, no tenderness, no distended Integumentary: no rash, warm and dry Neurologic: other (on restrains, not following any command) Musculoskeletal: other (no edema) - Lab 08/08/18 02:09 08/08/18 02:09 Most recent lab results Calcium 8.9 mg/dL (8.4-10.2) 08/08/18 02:09 Phosphorus 2.80 mg/dL (2.5-4.5) 08/06/18 05:17 Magnesium 2.30 mg/dL (1.7-2.3) 08/06/18 05:17 Urine Creatinine 72.3 mg/dL (0.1-20.0) H 07/29/18 09:24 Urine Sodium 12 mmol/L 07/29/18 09:24 Medications & Allergies - Medications Allergies/Adverse Reactions: Allergies No Known Allergies Allergy (Verified 12/12/13 06:46) Home Medications: Home Medications Medication Instructions Recorded Confirmed Last Taken Type Pravastatin Sodium 40 mg PO DAILY 12/12/13 07/27/18 07/27/18 History Clopidogrel [Plavix] 75 mg PO DAILY #30 tablet 04/03/15 07/27/18 07/27/18 Rx amLODIPine [Norvasc] 10 mg PO DAILY #30 tablet 04/03/15 07/27/18 07/27/18 Rx Fluticasone/Salmeterol [Advair 1 puff IH BID 12/31/15 07/27/18 07/27/18 History Diskus 250-50 mcg] ALBUTEROL Inhaler (OR & NICU) 2 puff IH QID PRN 07/27/18 07/27/18 Unknown History [Proair] Aspirin [Aspirin BABY CHEW TAB] 81 mg PO DAILY 07/27/18 07/27/18 07/27/18 History Cyanocobalamin (Vitamin B-12) 2,500 mcg PO DAILY 07/27/18 07/27/18 07/27/18 History [Vitamin B12] [place]-3S/Dha/Epa/Fish Oil/D3 [Fish 1 each PO DAILY 07/27/18 07/27/18 07/27/18 History Juc-Wvooi-0-Vit D Softgel] Active Medications: Generic Name Dose Route Start Last Admin Trade Name Fre PRN Reason Stop Dose Admin Acetaminophen 650 mg 07/28/18 04:34 07/28/18 05:[address] 650 mg Q4H PRN Administration Fever >101 Amiodarone HCl 200 mg 07/29/18 14:00 08/07/18 21:41 Cordarone PO 200 mg BID IGNACIO Administration Lipase/Protease/Amylase 1 each 07/28/18 13:[address] 10,500 Unit FEEDTUBE PRN PRN For Clogged Feeding Tube Arformoterol Tartrate 15 mcg 07/27/18 20:00 08/08/18 07:20 Brovana Nebu IH 15 mcg Q12HRT IGNACIO Administration Budesonide 0.5 mg 07/27/18 20:00 08/08/18 07:20 Pulmicort IH 0.5 mg Q12HRT IGNACIO Administration Cyanocobalamin 2,500 mcg 07/28/18 10:00 08/07/18 10:01 Vitamin B-12 PO 2,500 mcg QDAY IGNACIO Administration Diltiazem HCl 60 mg 08/05/18 12:00 08/08/18 08:27 Cardizem PO 60 mg Q4H IGNACIO Administration Famotidine 20 mg 08/01/18 10:00 08/07/18 22:00 Pepcid PO 20 mg BID IGNACIO Administration Hydrophilic Ointment 1 applic 07/27/18 20:09 Vaseline Lip Therapy TP Q2HR PRN Dry Lips Propofol 1,000 mg in 100 mls @ 2.531 mls/hr 07/27/18 21:00 08/08/18 07:55 Diprivan 10 Mg/Ml IV 0 mcg/kg/min TITR IGNACIO 0 mls/hr Titration Protocol 5 MCG/KG/MIN Cefepime HCl 2 gm in 100 mls @ 200 mls/hr 08/01/18 14:00 08/07/18 22:00 Maxipime/Ns 2 Gm/100 Ml IV 200 mls/hr Q12HR IGNACIO Administration Protocol Fentanyl Citrate 2,000 mcg in 100 mls @ 2.285 mls/hr 08/01/18 14:00 08/08/18 07:55 Fentanyl Drip Premix IV 0 mcg/kg/hr TITR IGNACIO 0 mls/hr Titration Protocol 0.5 MCG/KG/HR Heparin Sodium/Sodium Chloride 25,000 unit in 500 mls @ 26 mls/hr 08/07/18 15:00 08/08/18 00:31 Heparin/ 0.45% Nacl-25,000 Unit/500 Ml IV 1,400 units/hr TITR IGNACIO 28 mls/hr Titration Protocol 1,300 UNITS/HR Insulin Glargine 20 units 08/05/18 22:00 08/08/18 00:38 Lantus SUB-Q 20 units QHS IGNACIO Administration Insulin Human Lispro 0 unit 07/29/18 07:00 08/08/18 06:00 Humalog SUB-Q Not Given Q4HR [facility] Protocol Multi-Ingred Cream/Lotion/Oil/Oint 1 applic 07/27/18 20:09 Artificial Tears Ophth Oint OU Q4HR PRN Dry Eye(s) Pravastatin Sodium 40 mg 07/28/18 10:00 08/07/18 10:01 Pravachol PO 40 mg DAILY IGNACIO Administration Prednisone 5 mg 08/08/18 10:00 Deltasone PO 08/08/18 10:01 QDAY IGNACIO Quetiapine Fumarate 100 mg 08/03/18 10:00 08/07/18 22:00 Seroquel PO 100 mg BID IGNACIO Administration Simple Syrup 15 ml 07/28/18 13:57 Simple Syrup FEEDTUBE PRN PRN Hypoglycemia Simple Syrup 30 ml 07/28/18 13:57 Simple Syrup FEEDTUBE PRN PRN Hypoglycemia Sodium Bicarbonate 325 mg 07/28/18 13:57 Sodium Bicarbonate FEEDTUBE PRN PRN For Clogged Feeding Tube Sodium Chloride 10 ml 07/27/18 22:00 08/07/18 22:00 Sodium Chloride Flush Syringe 10 Ml IV 10 ml BID IGNACIO Administration Sodium Chloride 10 ml 07/27/18 15:59 Sodium Chloride Flush Syringe 10 Ml IV PRN PRN LINE FLUSH
[2018-08-08] MEDS ORDERED: DELTASONE PO SCH (10:00)
[2018-08-08] MEDS: VITAMIN B-12 PO SCH (10:14)
[2018-08-08] MEDS: PRAVACHOL PO SCH (10:15)
[2018-08-08] MEDS: PEPCID PO SCH ×2 (10:15→22:19)
[2018-08-08] MEDS: CORDARONE PO SCH ×2 (10:15→22:20)
[2018-08-08] MEDS: MAXIPIME/NS 2 GM/100 ML 2 GM/100 ML BAG IV SCH (10:18)
[2018-08-08] MEDS: SODIUM CHLORIDE FLUSH SYRINGE 10 ML IV SCH (10:26)
--- NOTE | 2018-08-08 11:02 | Progress Note ---
Assessment and Plan Cultures: 07/27/2018 tracheal aspirate culture: Pseudomonas aeruginosa, MSSA 07/28/2018 blood culture: 4 out of 4 bottles positive for Streptococcus anginosus 07/28/2018 fungal blood culture: In progress but no growth thus far 07/29/2018 urine culture: No growth 08/01/2018 blood culture: negative thus far A/P: 73-year-old male with COPD, peripheral vascular disease, hypertension, hyperlipidemia, seizure disorder admitted with: 1) Sepsis secondary to Streptococcus anginosus bacteremia: Present on admission. Source is unclear. Patient does have evidence of pneumonia however sputum cultures are not concordant and are growing pseudomonas aeruginosa and MSSA. Reviewed cardiology note, REGAN was reportedly negative. Continue abx, previously received Ceftriaxone and Vancomycin, now Cefepime, completes abx today. 2) Acute respiratory failure secondary to congestive heart failure and pneumonia: completes IV cefepime to cover both MSSA and Pseudomonas today. Awaiting trach. 3) CARLEE, present on admission, now resolved. 4) Leucocytosis: ?multifactorial. patient on steroids. No new fever. Recs: discontinued Cefepime today monitor off antibiotics awaiting trach Will follow along. Rhea Ro MD [facility] C: [phone] O: [phone] F: [phone] Subjective Date of service: 08/08/18 Principal diagnosis: AFib Interval history: More awake, still on vent, awaiting trach. Able to respond. Denies any specific complaints. No diarrhea or fever per RN. Objective - Exam Narrative Exam: Physical Exam: Constitutional: awake, remains intubated, more responsive Head, Ears, Nose: Normocephalic, atraumatic. External ears, nose normal Eyes: Conjunctivae/corneas clear. No icterus. No ptosis. Neck: Supple, no meningeal signs Oral: intubated Cardiovascular: S1, S2 normal Respiratory: Good air entry, clear to auscultation bilaterally, no rhonchi or crackles GI: Soft, non-tender; bowel sounds normal. No peritoneal signs Musculoskeletal: trace pedal edema, no cyanosis. Skin: No rash or abscess Hem/Lymphatic: No palpable cervical or supraclavicular nodes. No lymphangitis Psych: no agitation Neurological: more awake, responsive, intubated, exam limited - Constitutional Vitals: Vital Signs Temp Pulse Resp BP Pulse Ox 100.2 F H 86 20 115/58 94 08/08/18 03:14 08/08/18 08:27 08/08/18 07:20 08/08/18 08:27 08/08/18 07:20 Temperature -Last 24 Hours Temperature 100.2 F Temperature 100 F Temperature 99.9 F Temperature 99 F Temperature 99.4 F - Labs CBC & Chem 7: 08/08/18 02:09 08/08/18 02:09 Labs: Abnormal lab results 08/07/18 08/07/18 08/07/18 Range/Units 14:16 15:08 15:08 WBC (4.5-11.0) K/mm3 RBC (3.65-5.03) M/mm3 Hgb 10.3 L (11.8-15.2) gm/dl Hct 32.2 L (35.5-45.6) % MCV (84-94) fl MCH (28-32) pg RDW (13.2-15.2) % Seg Neuts % (Manual) (40.0-70.0) % Lymphocytes % (Manual) (13.4-35.0) % Monocytes % (Manual) (0.0-7.3) % Seg Neutrophils # Man (1.8-7.7) K/mm3 Monocytes # (Manual) (0.0-0.8) K/mm3 APTT 23.2 L (24.2-36.6) Sec. Heparin Anti-Xa Level (0.3-0.7) U.I./ml POC ABG pH (7.35-7.45) POC ABG pCO2 (35-45) POC ABG pO2 (80-105) Carbon Dioxide (22-30) mmol/L BUN (9-20) mg/dL Creatinine (0.8-1.5) mg/dL Glucose (75-100) mg/dL POC Glucose 223 H (70-105) 08/07/18 08/07/18 08/07/18 Range/Units 17:39 22:04 22:30 WBC (4.5-11.0) K/mm3 RBC (3.65-5.03) M/mm3 Hgb (11.8-15.2) gm/dl Hct (35.5-45.6) % MCV (84-94) fl MCH (28-32) pg RDW (13.2-15.2) % Seg Neuts % (Manual) (40.0-70.0) % Lymphocytes % (Manual) (13.4-35.0) % Monocytes % (Manual) (0.0-7.3) % Seg Neutrophils # Man (1.8-7.7) K/mm3 Monocytes # (Manual) (0.0-0.8) K/mm3 APTT (24.2-36.6) Sec. Heparin Anti-Xa Level 0.25 L (0.3-0.7) U.I./ml POC ABG pH (7.35-7.45) POC ABG pCO2 (35-45) POC ABG pO2 (80-105) Carbon Dioxide (22-30) mmol/L BUN (9-20) mg/dL Creatinine (0.8-1.5) mg/dL Glucose (75-100) mg/dL POC Glucose 208 H 163 H (70-105) 08/08/18 08/08/18 08/08/18 Range/Units 01:57 02:09 02:09 WBC 14.6 H (4.5-11.0) K/mm3 RBC 2.88 L (3.65-5.03) M/mm3 Hgb 9.5 L (11.8-15.2) gm/dl Hct 29.9 L (35.5-45.6) % MCV 104 H (84-94) fl MCH 33 H (28-32) pg RDW 16.8 H (13.2-15.2) % Seg Neuts % (Manual) 73.0 H (40.0-70.0) % Lymphocytes % (Manual) 9.0 L (13.4-35.0) % Monocytes % (Manual) 10.0 H (0.0-7.3) % Seg Neutrophils # Man 10.7 H (1.8-7.7) K/mm3 Monocytes # (Manual) 1.5 H (0.0-0.8) K/mm3 APTT (24.2-36.6) Sec. Heparin Anti-Xa Level (0.3-0.7) U.I./ml POC ABG pH (7.35-7.45) POC ABG pCO2 (35-45) POC ABG pO2 (80-105) Carbon Dioxide 39 H (22-30) mmol/L BUN 29 H (9-20) mg/dL Creatinine 0.5 L (0.8-1.5) mg/dL Glucose 124 H (75-100) mg/dL POC Glucose 120 H (70-105) 08/08/18 08/08/18 08/08/18 Range/Units 04:58 05:19 10:22 WBC (4.5-11.0) K/mm3 RBC (3.65-5.03) M/mm3 Hgb (11.8-15.2) gm/dl Hct (35.5-45.6) % MCV (84-94) fl MCH (28-32) pg RDW (13.2-15.2) % Seg Neuts % (Manual) (40.0-70.0) % Lymphocytes % (Manual) (13.4-35.0) % Monocytes % (Manual) (0.0-7.3) % Seg Neutrophils # Man (1.8-7.7) K/mm3 Monocytes # (Manual) (0.0-0.8) K/mm3 APTT (24.2-36.6) Sec. Heparin Anti-Xa Level (0.3-0.7) U.I./ml POC ABG pH 7.461 H (7.35-7.45) POC ABG pCO2 57.3 H (35-45) POC ABG pO2 62 L (80-105) Carbon Dioxide (22-30) mmol/L BUN (9-20) mg/dL Creatinine (0.8-1.5) mg/dL Glucose (75-100) mg/dL POC Glucose 139 H 169 H (70-105)
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
[2018-08-08] MEDS: HEPARIN/ 0.45% NACL-25,000 UNIT/500 ML 25,000 UNIT/500 ML BAG IV SCH (12:04)
--- NOTE | 2018-08-08 12:28 | Progress Note ---
Assessment and Plan Acute hypoxemic respiratory failure, on mechanical ventilatory support. Atrial fibrillation with rapid ventricular response. Possible congestive heart failure with an acute exacerbation. 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 Elevated D-dimer. Leukocytosis. Sepsis syndrome with hypotension and fevers this morning. Chronic obstructive lung disease with an acute exacerbation. Hypernatremia Peripheral vascular disease. Mixed acidosis, respiratory and metabolic. Acute kidney injury. Lactic acidosis. Elevated BNP level of 3913. History of hypertension. History of arthritis. (Discussed possible need for tracheostomy with caregiver in room who stated that she will talk to his sister as no or kids) - continue MVS while awaiting tracheostomy - continue daily SBT's as tolerated (should do better post trach) - continue free water started for hypernatremia - continue seroquel re: agitation/delirium (increased to 200 mg bid) - increased Lantus insulin dose - contiue solumedrol - VAP bundle addressed - titrate sedatives for RASS 0 to -1 - continue seroquel - PT/OT evaluation ongoing (unable to treat today also) - continue enteral nutrition as tolerated - continue supplemental oxygen to keep sats >/= 90% - aspiration precautions - continue bronchodilators with pulmonary hygiene per RT - continue therapeutic anticoagulation - continue stress ulcer prophylaxis - continue Antibiotics to complete course - continue mobility protocol for pressure ulcer prevention - continue pother care per attending / other consultants .... re-evaluate in am & prn FULL CODE STATUS CONDITION: CRITICAL The high probability of a clinically significant, sudden or life-threatening deterioration of the [respiratory, cardiovascular, renal] system(s) required my full and direct attention, intervention and personal management. The aggregate c ritical care time was [32] minutes without overlap. Time includes spent on; [x] Data Review and interpretation [x] Patient assessment and monitoring of vital signs [x] Documentation [x] Medication orders and management Subjective Date of service: 08/08/18 Principal diagnosis: Acute hypoxemic respiratory failure; A-fib with RVR; Possible CHF; H/O DVT Interval history: Patient is seen today for: Acute hypoxemic respiratory failure on MVS; Atrial fibrillation with RVR; Possible congestive heart failure with an acute exacerbation; History of deep venous thrombosis; Elevated D-dimer. Seen and examined at bedside; 24hour events reviewed; nursing and respiratory care staff consulted; no adverse overnight events reported to me; remains on MVS; still not tolerating weaning well; confused still; no emesis or overt aspiration; remains in A-fib Objective Vital Signs - 12hr 08/08/18 08/08/18 08/08/18 00:30 00:35 00:46 Temperature Pulse Rate 81 82 85 Pulse Rate [ Anterior Bilateral Throughout] Pulse Rate [ From Monitor] Respiratory 24 26 H Rate Respiratory Rate [Anterior Bilateral Throughout] Blood Pressure 128/57 115/51 132/56 O2 Sat by Pulse 92 94 93 Oximetry 08/08/18 08/08/18 08/08/18 01:00 01:15 01:30 Temperature Pulse Rate 87 85 87 Pulse Rate [ Anterior Bilateral Throughout] Pulse Rate [ From Monitor] Respiratory 24 21 23 Rate Respiratory Rate [Anterior Bilateral Throughout] Blood Pressure 124/50 125/50 121/57 O2 Sat by Pulse 93 92 91 Oximetry 08/08/18 08/08/18 08/08/18 01:45 02:00 02:15 Temperature Pulse Rate 84 82 84 Pulse Rate [ Anterior Bilateral Throughout] Pulse Rate [ From Monitor] Respiratory 17 22 24 Rate Respiratory Rate [Anterior Bilateral Throughout] Blood Pressure 124/57 125/54 124/57 O2 Sat by Pulse 91 90 91 Oximetry 08/08/18 08/08/18 08/08/18 02:30 02:45 03:00 Temperature Pulse Rate 83 82 83 Pulse Rate [ Anterior Bilateral Throughout] Pulse Rate [ From Monitor] Respiratory 22 18 20 Rate Respiratory Rate [Anterior Bilateral Throughout] Blood Pressure 121/57 124/58 122/57 O2 Sat by Pulse 91 93 92 Oximetry 08/08/18 08/08/18 08/08/18 03:14 03:15 03:30 Temperature 100.2 F H Pulse Rate 83 81 Pulse Rate [ Anterior Bilateral Throughout] Pulse Rate [ From Monitor] Respiratory 20 21 Rate Respiratory Rate [Anterior Bilateral Throughout] Blood Pressure 123/57 117/54 O2 Sat by Pulse 92 92 Oximetry 08/08/18 08/08/18 08/08/18 03:45 04:00 04:05 Temperature Pulse Rate 81 81 82 Pulse Rate [ Anterior Bilateral Throughout] Pulse Rate [ 88 From Monitor] Respiratory 19 18 Rate Respiratory Rate [Anterior Bilateral Throughout] Blood Pressure 120/59 124/58 124/58 O2 Sat by Pulse 91 91 92 Oximetry 12/24/18 12/24/18 12/24/18 04:15 04:19 04:30 Temperature Pulse Rate 81 85 85 Pulse Rate [ Anterior Bilateral Throughout] Pulse Rate [ From Monitor] Respiratory 22 27 H Rate Respiratory Rate [Anterior Bilateral Throughout] Blood Pressure 117/68 117/68 128/61 O2 Sat by Pulse 90 91 Oximetry 08/08/18 08/08/18 08/08/18 04:45 05:00 05:15 Temperature Pulse Rate 89 90 86 Pulse Rate [ Anterior Bilateral Throughout] Pulse Rate [ From Monitor] Respiratory 27 H 17 28 H Rate Respiratory Rate [Anterior Bilateral Throughout] Blood Pressure 128/61 131/62 126/63 O2 Sat by Pulse 90 89 91 Oximetry 08/08/18 08/08/18 08/08/18 05:30 05:45 06:00 Temperature Pulse Rate 85 82 82 Pulse Rate [ Anterior Bilateral Throughout] Pulse Rate [ From Monitor] Respiratory 21 24 20 Rate Respiratory Rate [Anterior Bilateral Throughout] Blood Pressure 111/55 117/55 116/54 O2 Sat by Pulse 90 89 Oximetry 08/08/18 08/08/18 08/08/18 06:15 06:30 06:45 Temperature Pulse Rate 81 82 82 Pulse Rate [ Anterior Bilateral Throughout] Pulse Rate [ From Monitor] Respiratory 20 21 22 Rate Respiratory Rate [Anterior Bilateral Throughout] Blood Pressure 119/56 113/56 120/57 O2 Sat by Pulse 89 89 88 Oximetry 08/08/18 08/08/18 08/08/18 07:20 08:20 08:27 Temperature Pulse Rate 85 90 86 Pulse Rate [ 83 Anterior Bilateral Throughout] Pulse Rate [ From Monitor] Respiratory 45 H Rate Respiratory 20 Rate [Anterior Bilateral Throughout] Blood Pressure 135/61 115/58 O2 Sat by Pulse 94 85 Oximetry Constitutional: appears uncomfortable, other (elderly looking CM, normocephalic and atraumatic with normal respiratory effort) Eyes: non-icteric ENT: oropharynx moist, other (ETT 23 cm SUHAS) Neck: supple, no lymphadenopathy, no JVD, other (No thyromegaly) Effort: mildly labored Ascultation: Bilateral: diminished breath sounds, rhonchi Percussion: Bilateral: not dull Cardiovascular: irregular rhythm, other (+ systolic murmur) Gastrointestinal: hypoactive bowel sounds, soft, non-tender, non-distended, other (No palpable HSM) Integumentary: rash, other (upper extremity edema) Extremities: no cyanosis, pink and warm, pulses normal, no ischemia or petechiae Neurologic: non-focal exam (grossly), pupils equal and round, other (moves all extemities) Psychiatric: mood appropriate, affect normal CBC and BMP: 08/09/18 03:52 08/09/18 03:52 ABG, PT/INR, D-dimer: ABG POC ABG pH 7.461 (7.35-7.45) H 08/08/18 05:19 POC ABG pCO2 57.3 (35-45) H 08/08/18 05:19 POC ABG pO2 62 (80-105) L 08/08/18 05:19 POC ABG HCO3 40.8 08/08/18 05:19 POC ABG Total CO2 43 08/08/18 05:19 POC ABG O2 Sat 92 08/08/18 05:19 PT/INR, D-dimer PT 13.4 Sec. (12.2-14.9) 08/07/18 15:08 INR 0.98 (0.87-1.13) 08/07/18 15:08 D-Dimer 798.17 ng/mlDDU (0-234) H 07/27/18 15:52 Abnormal lab findings: Abnormal Labs 07/27/18 07/27/18 07/27/18 12:59 12:59 12:59 WBC 15.8 H RBC Hgb Hct MCV 104 H MCH 34 H RDW 16.3 H Seg Neuts % (Manual) 88.0 H Lymphocytes % (Manual) 3.0 L Monocytes % (Manual) Nucleated RBC % Seg Neutrophils # Man 13.9 H Lymphocytes # (Manual) 0.5 L Monocytes # (Manual) PT 17.0 H INR 1.34 H APTT D-Dimer Heparin Anti-Xa Level POC ABG pH POC ABG pCO2 POC ABG pO2 Sodium Potassium Chloride Carbon Dioxide 21 L BUN 38 H Creatinine 1.6 H Glucose POC Glucose Lactic Acid Calcium Phosphorus Total Bilirubin 1.30 H C-Reactive Protein NT-Pro-B Natriuret Pep 3913 H Total Protein 6.2 L Albumin 3.6 L Urine WBC (Auto) Urine Creatinine 07/27/18 07/27/18 07/27/18 15:52 16:12 17:09 WBC RBC Hgb Hct MCV MCH RDW Seg Neuts % (Manual) Lymphocytes % (Manual) Monocytes % (Manual) Nucleated RBC % Seg Neutrophils # Man Lymphocytes # (Manual) Monocytes # (Manual) PT 16.0 H INR 1.24 H APTT D-Dimer 798.17 H Heparin Anti-Xa Level POC ABG pH POC ABG pCO2 POC ABG pO2 Sodium Potassium Chloride Carbon Dioxide BUN Creatinine Glucose POC Glucose Lactic Acid 5.00 H* Calcium Phosphorus Total Bilirubin C-Reactive Protein NT-Pro-B Natriuret Pep Total Protein Albumin Urine WBC (Auto) Urine Creatinine 07/27/18 07/27/18 07/27/18 17:59 18:07 21:31 WBC RBC Hgb Hct MCV MCH RDW Seg Neuts % (Manual) Lymphocytes % (Manual) Monocytes % (Manual) Nucleated RBC % Seg Neutrophils # Man Lymphocytes # (Manual) Monocytes # (Manual) PT INR APTT D-Dimer Heparin Anti-Xa Level POC ABG pH 7.344 L POC ABG pCO2 POC ABG pO2 36 L Sodium Potassium Chloride Carbon Dioxide BUN Creatinine Glucose POC Glucose Lactic Acid 5.20 H* 5.00 H* Calcium Phosphorus Total Bilirubin C-Reactive Protein NT-Pro-B Natriuret Pep Total Protein Albumin Urine WBC (Auto) Urine Creatinine 07/27/18 07/27/18 07/27/18 21:57 22:42 23:26 WBC RBC Hgb Hct MCV MCH RDW Seg Neuts % (Manual) Lymphocytes % (Manual) Monocytes % (Manual) Nucleated RBC % Seg Neutrophils # Man Lymphocytes # (Manual) Monocytes # (Manual) PT INR APTT D-Dimer Heparin Anti-Xa Level POC ABG pH 7.199 L POC ABG pCO2 62.0 H POC ABG pO2 Sodium Potassium Chloride Carbon Dioxide BUN Creatinine Glucose POC Glucose Lactic Acid 4.70 H* 5.00 H* Calcium Phosphorus Total Bilirubin C-Reactive Protein NT-Pro-B Natriuret Pep Total Protein Albumin Urine WBC (Auto) Urine Creatinine 07/28/18 07/28/18 07/28/18 00:45 05:40 05:58 WBC RBC Hgb Hct MCV MCH RDW Seg Neuts % (Manual) Lymphocytes % (Manual) Monocytes % (Manual) Nucleated RBC % Seg Neutrophils # Man Lymphocytes # (Manual) Monocytes # (Manual) PT INR APTT D-Dimer Heparin Anti-Xa Level 0.11 L POC ABG pH 7.186 L POC ABG pCO2 60.1 H POC ABG pO2 68 L Sodium Potassium Chloride Carbon Dioxide BUN Creatinine Glucose POC Glucose Lactic Acid 4.70 H* Calcium Phosphorus Total Bilirubin C-Reactive Protein NT-Pro-B Natriuret Pep Total Protein Albumin Urine WBC (Auto) Urine Creatinine 07/28/18 07/28/18 07/28/18 06:01 06:01 07:19 WBC 12.5 H RBC 3.51 L Hgb 11.5 L Hct MCV 104 H MCH 33 H RDW 16.6 H Seg Neuts % (Manual) Lymphocytes % (Manual) Monocytes % (Manual) Nucleated RBC % Seg Neutrophils # Man Lymphocytes # (Manual) Monocytes # (Manual) PT INR APTT D-Dimer Heparin Anti-Xa Level 0.14 L POC ABG pH POC ABG pCO2 POC ABG pO2 Sodium 135 L Potassium 5.1 H Chloride 95.0 L Carbon Dioxide 21 L BUN 54 H Creatinine 2.6 H D Glucose POC Glucose Lactic Acid Calcium Phosphorus Total Bilirubin C-Reactive Protein NT-Pro-B Natriuret Pep Total Protein Albumin Urine WBC (Auto) Urine Creatinine 07/28/18 07/28/18 07/28/18 07:19 09:20 11:06 WBC RBC Hgb Hct MCV MCH RDW Seg Neuts % (Manual) Lymphocytes % (Manual) Monocytes % (Manual) Nucleated RBC % Seg Neutrophils # Man Lymphocytes # (Manual) Monocytes # (Manual) PT INR APTT D-Dimer Heparin Anti-Xa Level POC ABG pH 7.266 L POC ABG pCO2 49.7 H POC ABG pO2 74 L Sodium Potassium Chloride Carbon Dioxide BUN Creatinine Glucose POC Glucose Lactic Acid 4.00 H* 3.90 H* Calcium Phosphorus Total Bilirubin C-Reactive Protein NT-Pro-B Natriuret Pep Total Protein Albumin Urine WBC (Auto) Urine Creatinine 07/28/18 07/28/18 07/28/18 15:06 20:45 23:36 WBC RBC Hgb Hct MCV MCH RDW Seg Neuts % (Manual) Lymphocytes % (Manual) Monocytes % (Manual) Nucleated RBC % Seg Neutrophils # Man Lymphocytes # (Manual) Monocytes # (Manual) PT INR APTT D-Dimer Heparin Anti-Xa Level 0.15 L POC ABG pH POC ABG pCO2 POC ABG pO2 Sodium 134 L Potassium 5.2 H Chloride Carbon Dioxide BUN 58 H Creatinine 2.1 H Glucose 110 H POC Glucose 125 H Lactic Acid Calcium Phosphorus Total Bilirubin C-Reactive Protein NT-Pro-B Natriuret Pep Total Protein Albumin Urine WBC (Auto) Urine Creatinine 07/29/18 07/29/18 07/29/18 01:12 04:21 04:21 WBC RBC 3.21 L Hgb 10.8 L Hct 33.0 L MCV 103 H MCH 34 H RDW 16.4 H Seg Neuts % (Manual) Lymphocytes % (Manual) 11.0 L Monocytes % (Manual) Nucleated RBC % Seg Neutrophils # Man Lymphocytes # (Manual) 1.0 L Monocytes # (Manual) PT INR APTT D-Dimer Heparin Anti-Xa Level 0.21 L POC ABG pH POC ABG pCO2 POC ABG pO2 Sodium Potassium Chloride Carbon Dioxide BUN 48 H Creatinine 1.6 H Glucose 166 H POC Glucose Lactic Acid Calcium Phosphorus Total Bilirubin C-Reactive Protein NT-Pro-B Natriuret Pep Total Protein Albumin Urine WBC (Auto) Urine Creatinine 07/29/18 07/29/18 07/29/18 05:19 08:16 09:24 WBC RBC Hgb Hct MCV MCH RDW Seg Neuts % (Manual) Lymphocytes % (Manual) Monocytes % (Manual) Nucleated RBC % Seg Neutrophils # Man Lymphocytes # (Manual) Monocytes # (Manual) PT INR APTT D-Dimer Heparin Anti-Xa Level 0.25 L POC ABG pH POC ABG pCO2 POC ABG pO2 Sodium Potassium Chloride Carbon Dioxide BUN Creatinine Glucose POC Glucose 181 H Lactic Acid Calcium Phosphorus Total Bilirubin C-Reactive Protein NT-Pro-B Natriuret Pep Total Protein Albumin Urine WBC (Auto) 29.0 H Urine Creatinine 07/29/18 07/29/18 07/29/18 09:24 10:00 15:03 WBC RBC Hgb Hct MCV MCH RDW Seg Neuts % (Manual) Lymphocytes % (Manual) Monocytes % (Manual) Nucleated RBC % Seg Neutrophils # Man Lymphocytes # (Manual) Monocytes # (Manual) PT INR APTT D-Dimer Heparin Anti-Xa Level POC ABG pH POC ABG pCO2 POC ABG pO2 Sodium Potassium Chloride Carbon Dioxide BUN Creatinine Glucose POC Glucose 195 H 167 H Lactic Acid Calcium Phosphorus Total Bilirubin C-Reactive Protein NT-Pro-B Natriuret Pep Total Protein Albumin Urine WBC (Auto) Urine Creatinine 72.3 H 07/29/18 07/29/18 07/30/18 17:51 21:32 01:38 WBC RBC Hgb Hct MCV MCH RDW Seg Neuts % (Manual) Lymphocytes % (Manual) Monocytes % (Manual) Nucleated RBC % Seg Neutrophils # Man Lymphocytes # (Manual) Monocytes # (Manual) PT INR APTT D-Dimer Heparin Anti-Xa Level POC ABG pH POC ABG pCO2 POC ABG pO2 Sodium Potassium Chloride Carbon Dioxide BUN Creatinine Glucose POC Glucose 167 H 217 H 194 H Lactic Acid Calcium Phosphorus Total Bilirubin C-Reactive Protein NT-Pro-B Natriuret Pep Total Protein Albumin Urine WBC (Auto) Urine Creatinine 07/30/18 07/30/18 07/30/18 03:21 05:13 10:18 WBC RBC Hgb Hct MCV MCH RDW Seg Neuts % (Manual) Lymphocytes % (Manual) Monocytes % (Manual) Nucleated RBC % Seg Neutrophils # Man Lymphocytes # (Manual) Monocytes # (Manual) PT INR APTT D-Dimer Heparin Anti-Xa Level POC ABG pH POC ABG pCO2 50.3 H POC ABG pO2 78 L Sodium Potassium Chloride Carbon Dioxide BUN 41 H Creatinine Glucose 202 H POC Glucose 151 H Lactic Acid Calcium Phosphorus Total Bilirubin C-Reactive Protein NT-Pro-B Natriuret Pep Total Protein Albumin Urine WBC (Auto) Urine Creatinine 07/30/18 07/30/18 07/30/18 11:29 16:28 18:12 WBC RBC Hgb Hct MCV MCH RDW Seg Neuts % (Manual) Lymphocytes % (Manual) Monocytes % (Manual) Nucleated RBC % Seg Neutrophils # Man Lymphocytes # (Manual) Monocytes # (Manual) PT INR APTT D-Dimer Heparin Anti-Xa Level POC ABG pH 7.326 L POC ABG pCO2 53.2 H POC ABG pO2 70 L Sodium Potassium Chloride Carbon Dioxide BUN Creatinine Glucose POC Glucose 247 H 212 H Lactic Acid Calcium Phosphorus Total Bilirubin C-Reactive Protein NT-Pro-B Natriuret Pep Total Protein Albumin Urine WBC (Auto) Urine Creatinine 07/30/18 07/30/18 07/31/18 20:08 21:52 01:59 WBC RBC Hgb Hct MCV MCH RDW Seg Neuts % (Manual) Lymphocytes % (Manual) Monocytes % (Manual) Nucleated RBC % Seg Neutrophils # Man Lymphocytes # (Manual) Monocytes # (Manual) PT INR APTT D-Dimer Heparin Anti-Xa Level POC ABG pH POC ABG pCO2 POC ABG pO2 Sodium Potassium Chloride Carbon Dioxide BUN Creatinine Glucose POC Glucose 205 H 215 H 242 H Lactic Acid Calcium Phosphorus Total Bilirubin C-Reactive Protein NT-Pro-B Natriuret Pep Total Protein Albumin Urine WBC (Auto) Urine Creatinine 07/31/18 07/31/18 07/31/18 03:14 03:14 04:55 WBC RBC Hgb 10.6 L Hct 33.2 L MCV MCH RDW Seg Neuts % (Manual) Lymphocytes % (Manual) Monocytes % (Manual) Nucleated RBC % Seg Neutrophils # Man Lymphocytes # (Manual) Monocytes # (Manual) PT INR APTT D-Dimer Heparin Anti-Xa Level POC ABG pH 7.331 L POC ABG pCO2 67.1 H POC ABG pO2 Sodium Potassium Chloride Carbon Dioxide BUN 36 H Creatinine 0.7 L Glucose 242 H POC Glucose Lactic Acid Calcium 10.3 H Phosphorus 2.30 L Total Bilirubin C-Reactive Protein NT-Pro-B Natriuret Pep Total Protein Albumin Urine WBC (Auto) Urine Creatinine 07/31/18 07/31/18 07/31/18 05:37 10:08 14:07 WBC RBC Hgb Hct MCV MCH RDW Seg Neuts % (Manual) Lymphocytes % (Manual) Monocytes % (Manual) Nucleated RBC % Seg Neutrophils # Man Lymphocytes # (Manual) Monocytes # (Manual) PT INR APTT D-Dimer Heparin Anti-Xa Level POC ABG pH POC ABG pCO2 POC ABG pO2 Sodium Potassium Chloride Carbon Dioxide BUN Creatinine Glucose POC Glucose 193 H 247 H 225 H Lactic Acid Calcium Phosphorus Total Bilirubin C-Reactive Protein NT-Pro-B Natriuret Pep Total Protein Albumin Urine WBC (Auto) Urine Creatinine 07/31/18 07/31/18 08/01/18 18:12 21:34 02:00 WBC RBC Hgb Hct MCV MCH RDW Seg Neuts % (Manual) Lymphocytes % (Manual) Monocytes % (Manual) Nucleated RBC % Seg Neutrophils # Man Lymphocytes # (Manual) Monocytes # (Manual) PT INR APTT D-Dimer Heparin Anti-Xa Level POC ABG pH POC ABG pCO2 POC ABG pO2 Sodium Potassium Chloride Carbon Dioxide BUN Creatinine Glucose POC Glucose 197 H 204 H 239 H Lactic Acid Calcium Phosphorus Total Bilirubin C-Reactive Protein NT-Pro-B Natriuret Pep Total Protein Albumin Urine WBC (Auto) Urine Creatinine 08/01/18 08/01/18 08/01/18 04:13 04:37 05:29 WBC RBC Hgb Hct MCV MCH RDW Seg Neuts % (Manual) Lymphocytes % (Manual) Monocytes % (Manual) Nucleated RBC % Seg Neutrophils # Man Lymphocytes # (Manual) Monocytes # (Manual) PT INR APTT D-Dimer Heparin Anti-Xa Level POC ABG pH 7.296 L POC ABG pCO2 81.9 H POC ABG pO2 190 H Sodium 150 H D Potassium Chloride Carbon Dioxide 37 H D BUN 37 H Creatinine 0.6 L Glucose 223 H POC Glucose 219 H Lactic Acid Calcium Phosphorus Total Bilirubin C-Reactive Protein NT-Pro-B Natriuret Pep Total Protein Albumin Urine WBC (Auto) Urine Creatinine 08/01/18 08/01/18 08/01/18 09:28 11:00 17:36 WBC RBC Hgb Hct MCV MCH RDW Seg Neuts % (Manual) Lymphocytes % (Manual) Monocytes % (Manual) Nucleated RBC % Seg Neutrophils # Man Lymphocytes # (Manual) Monocytes # (Manual) PT INR APTT D-Dimer Heparin Anti-Xa Level POC ABG pH POC ABG pCO2 61.2 H POC ABG pO2 69 L Sodium Potassium Chloride Carbon Dioxide BUN Creatinine Glucose POC Glucose 185 H 234 H Lactic Acid Calcium Phosphorus Total Bilirubin C-Reactive Protein NT-Pro-B Natriuret Pep Total Protein Albumin Urine WBC (Auto) Urine Creatinine 08/01/18 08/02/18 08/02/18 21:54 00:08 00:44 WBC RBC Hgb Hct MCV MCH RDW Seg Neuts % (Manual) Lymphocytes % (Manual) Monocytes % (Manual) Nucleated RBC % Seg Neutrophils # Man Lymphocytes # (Manual) Monocytes # (Manual) PT INR APTT D-Dimer Heparin Anti-Xa Level 0.77 H POC ABG pH POC ABG pCO2 66.4 H POC ABG pO2 64 L Sodium Potassium Chloride Carbon Dioxide BUN Creatinine Glucose POC Glucose 242 H Lactic Acid Calcium Phosphorus Total Bilirubin C-Reactive Protein NT-Pro-B Natriuret Pep Total Protein Albumin Urine WBC (Auto) Urine Creatinine 08/02/18 08/02/18 08/02/18 02:46 04:45 04:45 WBC RBC Hgb 10.7 L Hct 33.7 L MCV MCH RDW Seg Neuts % (Manual) Lymphocytes % (Manual) Monocytes % (Manual) Nucleated RBC % Seg Neutrophils # Man Lymphocytes # (Manual) Monocytes # (Manual) PT INR APTT D-Dimer Heparin Anti-Xa Level POC ABG pH POC ABG pCO2 POC ABG pO2 Sodium 152 H Potassium Chloride 108.1 H Carbon Dioxide 39 H BUN 38 H Creatinine 0.6 L Glucose 226 H POC Glucose 206 H Lactic Acid Calcium Phosphorus Total Bilirubin C-Reactive Protein NT-Pro-B Natriuret Pep Total Protein Albumin Urine WBC (Auto) Urine Creatinine 08/02/18 08/02/18 08/02/18 05:31 09:46 14:23 WBC RBC Hgb Hct MCV MCH RDW Seg Neuts % (Manual) Lymphocytes % (Manual) Monocytes % (Manual) Nucleated RBC % Seg Neutrophils # Man Lymphocytes # (Manual) Monocytes # (Manual) PT INR APTT D-Dimer Heparin Anti-Xa Level 0.91 H POC ABG pH POC ABG pCO2 POC ABG pO2 Sodium Potassium Chloride Carbon Dioxide BUN Creatinine Glucose POC Glucose 214 H 210 H Lactic Acid Calcium Phosphorus Total Bilirubin C-Reactive Protein NT-Pro-B Natriuret Pep Total Protein Albumin Urine WBC (Auto) Urine Creatinine 08/02/18 08/02/18 08/02/18 15:46 17:56 21:50 WBC RBC Hgb Hct MCV MCH RDW Seg Neuts % (Manual) Lymphocytes % (Manual) Monocytes % (Manual) Nucleated RBC % Seg Neutrophils # Man Lymphocytes # (Manual) Monocytes # (Manual) PT INR APTT D-Dimer Heparin Anti-Xa Level 0.99 H POC ABG pH POC ABG pCO2 POC ABG pO2 Sodium Potassium Chloride Carbon Dioxide BUN Creatinine Glucose POC Glucose 252 H 222 H Lactic Acid Calcium Phosphorus Total Bilirubin C-Reactive Protein NT-Pro-B Natriuret Pep Total Protein Albumin Urine WBC (Auto) Urine Creatinine 08/03/18 08/03/18 08/03/18 02:18 05:21 05:25 WBC RBC Hgb Hct MCV MCH RDW Seg Neuts % (Manual) Lymphocytes % (Manual) Monocytes % (Manual) Nucleated RBC % Seg Neutrophils # Man Lymphocytes # (Manual) Monocytes # (Manual) PT INR APTT D-Dimer Heparin Anti-Xa Level POC ABG pH POC ABG pCO2 POC ABG pO2 Sodium 151 H Potassium Chloride 107.3 H Carbon Dioxide 37 H BUN 42 H Creatinine 0.6 L Glucose 263 H POC Glucose 241 H 241 H Lactic Acid Calcium Phosphorus Total Bilirubin C-Reactive Protein NT-Pro-B Natriuret Pep Total Protein Albumin Urine WBC (Auto) Urine Creatinine 08/03/18 08/03/18 08/03/18 09:11 12:20 14:33 WBC RBC Hgb Hct MCV MCH RDW Seg Neuts % (Manual) Lymphocytes % (Manual) Monocytes % (Manual) Nucleated RBC % Seg Neutrophils # Man Lymphocytes # (Manual) Monocytes # (Manual) PT INR APTT D-Dimer Heparin Anti-Xa Level POC ABG pH POC ABG pCO2 POC ABG pO2 Sodium Potassium Chloride Carbon Dioxide BUN Creatinine Glucose POC Glucose 272 H 234 H 247 H Lactic Acid Calcium Phosphorus Total Bilirubin C-Reactive Protein NT-Pro-B Natriuret Pep Total Protein Albumin Urine WBC (Auto) Urine Creatinine 08/03/18 08/03/18 08/04/18 16:48 21:21 01:56 WBC RBC Hgb Hct MCV MCH RDW Seg Neuts % (Manual) Lymphocytes % (Manual) Monocytes % (Manual) Nucleated RBC % Seg Neutrophils # Man Lymphocytes # (Manual) Monocytes # (Manual) PT INR APTT D-Dimer Heparin Anti-Xa Level POC ABG pH POC ABG pCO2 POC ABG pO2 Sodium Potassium Chloride Carbon Dioxide BUN Creatinine Glucose POC Glucose 180 H 189 H Lactic Acid Calcium Phosphorus Total Bilirubin C-Reactive Protein 2.30 H NT-Pro-B Natriuret Pep Total Protein Albumin Urine WBC (Auto) Urine Creatinine 08/04/18 08/04/18 08/04/18 01:58 05:05 05:05 WBC 25.5 H RBC 3.31 L Hgb 10.8 L Hct 34.1 L MCV 103 H MCH 33 H RDW 16.0 H Seg Neuts % (Manual) Lymphocytes % (Manual) 8.0 L Monocytes % (Manual) Nucleated RBC % 2.0 H Seg Neutrophils # Man 16.3 H Lymphocytes # (Manual) Monocytes # (Manual) 1.0 H PT INR APTT D-Dimer Heparin Anti-Xa Level 0.79 H POC ABG pH POC ABG pCO2 POC ABG pO2 Sodium 148 H Potassium Chloride Carbon Dioxide 36 H BUN 35 H Creatinine 0.6 L Glucose 160 H POC Glucose Lactic Acid Calcium Phosphorus Total Bilirubin C-Reactive Protein NT-Pro-B Natriuret Pep Total Protein Albumin Urine WBC (Auto) Urine Creatinine 08/04/18 08/04/18 08/04/18 05:24 05:33 08:46 WBC RBC Hgb Hct MCV MCH RDW Seg Neuts % (Manual) Lymphocytes % (Manual) Monocytes % (Manual) Nucleated RBC % Seg Neutrophils # Man Lymphocytes # (Manual) Monocytes # (Manual) PT INR APTT D-Dimer Heparin Anti-Xa Level 0.76 H POC ABG pH POC ABG pCO2 65.7 H POC ABG pO2 63 L Sodium Potassium Chloride Carbon Dioxide BUN Creatinine Glucose POC Glucose 159 H Lactic Acid Calcium Phosphorus Total Bilirubin C-Reactive Protein NT-Pro-B Natriuret Pep Total Protein Albumin Urine WBC (Auto) Urine Creatinine 08/04/18 08/04/18 08/04/18 09:12 15:38 18:20 WBC RBC Hgb Hct MCV MCH RDW Seg Neuts % (Manual) Lymphocytes % (Manual) Monocytes % (Manual) Nucleated RBC % Seg Neutrophils # Man Lymphocytes # (Manual) Monocytes # (Manual) PT INR APTT D-Dimer Heparin Anti-Xa Level POC ABG pH POC ABG pCO2 POC ABG pO2 Sodium Potassium Chloride Carbon Dioxide BUN Creatinine Glucose POC Glucose 140 H 267 H 252 H Lactic Acid Calcium Phosphorus Total Bilirubin C-Reactive Protein NT-Pro-B Natriuret Pep Total Protein Albumin Urine WBC (Auto) Urine Creatinine 08/04/18 08/05/18 08/05/18 21:17 02:51 04:36 WBC RBC Hgb Hct MCV MCH RDW Seg Neuts % (Manual) Lymphocytes % (Manual) Monocytes % (Manual) Nucleated RBC % Seg Neutrophils # Man Lymphocytes # (Manual) Monocytes # (Manual) PT INR APTT D-Dimer Heparin Anti-Xa Level POC ABG pH POC ABG pCO2 POC ABG pO2 Sodium Potassium Chloride Carbon Dioxide BUN Creatinine Glucose POC Glucose 181 H 240 H 255 H Lactic Acid Calcium Phosphorus Total Bilirubin C-Reactive Protein NT-Pro-B Natriuret Pep Total Protein Albumin Urine WBC (Auto) Urine Creatinine 08/05/18 08/05/18 08/05/18 04:55 10:21 12:39 WBC 21.8 H RBC 3.18 L Hgb 10.3 L Hct 32.6 L MCV 103 H MCH 33 H RDW 16.3 H Seg Neuts % (Manual) 88.0 H Lymphocytes % (Manual) 4.0 L Monocytes % (Manual) Nucleated RBC % Seg Neutrophils # Man 19.2 H Lymphocytes # (Manual) 0.9 L Monocytes # (Manual) PT INR APTT D-Dimer Heparin Anti-Xa Level POC ABG pH 7.506 H POC ABG pCO2 56.0 H POC ABG pO2 63 L Sodium Potassium Chloride Carbon Dioxide BUN Creatinine Glucose POC Glucose 227 H Lactic Acid Calcium Phosphorus Total Bilirubin C-Reactive Protein NT-Pro-B Natriuret Pep Total Protein Albumin Urine WBC (Auto) Urine Creatinine 08/05/18 08/05/18 08/05/18 12:39 14:10 17:30 WBC RBC Hgb Hct MCV MCH RDW Seg Neuts % (Manual) Lymphocytes % (Manual) Monocytes % (Manual) Nucleated RBC % Seg Neutrophils # Man Lymphocytes # (Manual) Monocytes # (Manual) PT INR APTT D-Dimer Heparin Anti-Xa Level < 0.10 L POC ABG pH POC ABG pCO2 POC ABG pO2 Sodium Potassium Chloride 96.8 L Carbon Dioxide 38 H BUN 36 H Creatinine 0.6 L Glucose 218 H POC Glucose 221 H Lactic Acid Calcium Phosphorus Total Bilirubin C-Reactive Protein NT-Pro-B Natriuret Pep Total Protein Albumin Urine WBC (Auto) Urine Creatinine 08/05/18 08/05/18 08/06/18 18:32 23:32 02:26 WBC RBC Hgb Hct MCV MCH RDW Seg Neuts % (Manual) Lymphocytes % (Manual) Monocytes % (Manual) Nucleated RBC % Seg Neutrophils # Man Lymphocytes # (Manual) Monocytes # (Manual) PT INR APTT D-Dimer Heparin Anti-Xa Level POC ABG pH POC ABG pCO2 POC ABG pO2 Sodium Potassium Chloride Carbon Dioxide BUN Creatinine Glucose POC Glucose 253 H 215 H 227 H Lactic Acid Calcium Phosphorus Total Bilirubin C-Reactive Protein NT-Pro-B Natriuret Pep Total Protein Albumin Urine WBC (Auto) Urine Creatinine 08/06/18 08/06/18 08/06/18 05:17 05:17 05:32 WBC 18.9 H RBC 3.06 L Hgb 10.2 L Hct 31.3 L MCV 102 H MCH 33 H RDW 16.1 H Seg Neuts % (Manual) Lymphocytes % (Manual) Monocytes % (Manual) Nucleated RBC % Seg Neutrophils # Man Lymphocytes # (Manual) Monocytes # (Manual) PT INR APTT D-Dimer Heparin Anti-Xa Level POC ABG pH 7.468 H POC ABG pCO2 59.5 H POC ABG pO2 64 L Sodium Potassium Chloride Carbon Dioxide 37 H BUN 37 H Creatinine 0.5 L Glucose 226 H POC Glucose Lactic Acid Calcium Phosphorus Total Bilirubin C-Reactive Protein NT-Pro-B Natriuret Pep Total Protein Albumin Urine WBC (Auto) Urine Creatinine 08/06/18 08/06/18 08/06/18 10:11 15:03 17:48 WBC RBC Hgb Hct MCV MCH RDW Seg Neuts % (Manual) Lymphocytes % (Manual) Monocytes % (Manual) Nucleated RBC % Seg Neutrophils # Man Lymphocytes # (Manual) Monocytes # (Manual) PT INR APTT D-Dimer Heparin Anti-Xa Level POC ABG pH POC ABG pCO2 POC ABG pO2 Sodium Potassium Chloride Carbon Dioxide BUN Creatinine Glucose POC Glucose 207 H 229 H 188 H Lactic Acid Calcium Phosphorus Total Bilirubin C-Reactive Protein NT-Pro-B Natriuret Pep Total Protein Albumin Urine WBC (Auto) Urine Creatinine 08/06/18 08/07/18 08/07/18 22:53 01:55 05:30 WBC RBC Hgb Hct MCV MCH RDW Seg Neuts % (Manual) Lymphocytes % (Manual) Monocytes % (Manual) Nucleated RBC % Seg Neutrophils # Man Lymphocytes # (Manual) Monocytes # (Manual) PT INR APTT D-Dimer Heparin Anti-Xa Level POC ABG pH POC ABG pCO2 69.6 H POC ABG pO2 64 L Sodium Potassium Chloride Carbon Dioxide BUN Creatinine Glucose POC Glucose 146 H 143 H Lactic Acid Calcium Phosphorus Total Bilirubin C-Reactive Protein NT-Pro-B Natriuret Pep Total Protein Albumin Urine WBC (Auto) Urine Creatinine 08/07/18 08/07/18 08/07/18 09:59 14:16 15:08 WBC RBC Hgb 10.3 L Hct 32.2 L MCV MCH RDW Seg Neuts % (Manual) Lymphocytes % (Manual) Monocytes % (Manual) Nucleated RBC % Seg Neutrophils # Man Lymphocytes # (Manual) Monocytes # (Manual) PT INR APTT D-Dimer Heparin Anti-Xa Level POC ABG pH POC ABG pCO2 POC ABG pO2 Sodium Potassium Chloride Carbon Dioxide BUN Creatinine Glucose POC Glucose 188 H 223 H Lactic Acid Calcium Phosphorus Total Bilirubin C-Reactive Protein NT-Pro-B Natriuret Pep Total Protein Albumin Urine WBC (Auto) Urine Creatinine 08/07/18 08/07/18 08/07/18 15:08 17:39 22:04 WBC RBC Hgb Hct MCV MCH RDW Seg Neuts % (Manual) Lymphocytes % (Manual) Monocytes % (Manual) Nucleated RBC % Seg Neutrophils # Man Lymphocytes # (Manual) Monocytes # (Manual) PT INR APTT 23.2 L D-Dimer Heparin Anti-Xa Level POC ABG pH POC ABG pCO2 POC ABG pO2 Sodium Potassium Chloride Carbon Dioxide BUN Creatinine Glucose POC Glucose 208 H 163 H Lactic Acid Calcium Phosphorus Total Bilirubin C-Reactive Protein NT-Pro-B Natriuret Pep Total Protein Albumin Urine WBC (Auto) Urine Creatinine 08/07/18 08/08/18 08/08/18 22:30 01:57 02:09 WBC 14.6 H RBC 2.88 L Hgb 9.5 L Hct 29.9 L MCV 104 H MCH 33 H RDW 16.8 H Seg Neuts % (Manual) 73.0 H Lymphocytes % (Manual) 9.0 L Monocytes % (Manual) 10.0 H Nucleated RBC % Seg Neutrophils # Man 10.7 H Lymphocytes # (Manual) Monocytes # (Manual) 1.5 H PT INR APTT D-Dimer Heparin Anti-Xa Level 0.25 L POC ABG pH POC ABG pCO2 POC ABG pO2 Sodium Potassium Chloride Carbon Dioxide BUN Creatinine Glucose POC Glucose 120 H Lactic Acid Calcium Phosphorus Total Bilirubin C-Reactive Protein NT-Pro-B Natriuret Pep Total Protein Albumin Urine WBC (Auto) Urine Creatinine 08/08/18 08/08/18 08/08/18 02:09 04:58 05:19 WBC RBC Hgb Hct MCV MCH RDW Seg Neuts % (Manual) Lymphocytes % (Manual) Monocytes % (Manual) Nucleated RBC % Seg Neutrophils # Man Lymphocytes # (Manual) Monocytes # (Manual) PT INR APTT D-Dimer Heparin Anti-Xa Level POC ABG pH 7.461 H POC ABG pCO2 57.3 H POC ABG pO2 62 L Sodium Potassium Chloride Carbon Dioxide 39 H BUN 29 H Creatinine 0.5 L Glucose 124 H POC Glucose 139 H Lactic Acid Calcium Phosphorus Total Bilirubin C-Reactive Protein NT-Pro-B Natriuret Pep Total Protein Albumin Urine WBC (Auto) Urine Creatinine 08/08/18 10:22 WBC RBC Hgb Hct MCV MCH RDW Seg Neuts % (Manual) Lymphocytes % (Manual) Monocytes % (Manual) Nucleated RBC % Seg Neutrophils # Man Lymphocytes # (Manual) Monocytes # (Manual) PT INR APTT D-Dimer Heparin Anti-Xa Level POC ABG pH POC ABG pCO2 POC ABG pO2 Sodium Potassium Chloride Carbon Dioxide BUN Creatinine Glucose POC Glucose 169 H Lactic Acid Calcium Phosphorus Total Bilirubin C-Reactive Protein NT-Pro-B Natriuret Pep Total Protein Albumin Urine WBC (Auto) Urine Creatinine Chest x-ray: image reviewed Allied health notes reviewed: PT
--- NOTE | 2018-08-08 12:48 | Progress Note ---
Assessment and Plan No change in his overall condition. Awaiting PEG and tracheostomy. Hold IV heparin 4 hours before the procedure.Will follow. - Patient Problems (1) CARLEE (acute kidney injury) Current Visit: Yes Status: Resolved (2) Acidosis Current Visit: Yes Status: Resolved (3) Acute respiratory failure Current Visit: Yes Status: Acute Qualifiers: Respiratory failure complication: hypoxia Qualified Code(s): J96.01 - Acute respiratory failure with hypoxia (4) Atrial fibrillation Current Visit: Yes Status: Resolved Qualifiers: Atrial fibrillation type: persistent Qualified Code(s): I48.1 - Persistent atrial fibrillation (5) CHF (congestive heart failure) Current Visit: Yes Status: Acute Qualifiers: Heart failure type: systolic Heart failure chronicity: acute Qualified Code(s): I50.21 - Acute systolic (congestive) heart failure (6) Hematuria Current Visit: Yes Status: Resolved (7) Lactic acid acidosis Current Visit: Yes Status: Resolved (8) Pneumonia Current Visit: Yes Status: Acute (9) SIRS (systemic inflammatory response syndrome) Current Visit: Yes Status: Acute (10) COPD (chronic obstructive pulmonary disease) Current Visit: Yes Status: Chronic (11) Hyperlipemia Current Visit: Yes Status: Chronic Qualifiers: Hyperlipidemia type: Mixed hyperlipidemia (12) Hypertension Current Visit: Yes Status: Chronic Qualifiers: Hypertension type: essential hypertension Qualified Code(s): I10 - Essential (primary) hypertension (13) Nonobstructive atherosclerosis of coronary artery Current Visit: Yes Status: Chronic (14) Peripheral vascular disease Current Visit: Yes Status: Chronic (15) Acute blood loss anemia Current Visit: No Status: Acute (16) COPD exacerbation Current Visit: No Status: Acute (17) Cavitary pneumonia Current Visit: No Status: Acute (18) Respiratory failure Current Visit: No Status: Acute (19) S/P vascular surgery Current Visit: No Status: Acute (20) Atherosclerosis of [place] arteries of the extremities with intermittent claudication Current Visit: No Status: Chronic Subjective Date of service: 08/08/18 Principal diagnosis: Acute hypoxemic respiratory failure; A-fib with RVR; Possible CHF; H/O DVT Interval history: Intubated,sedated, NSR with APCs.Awaiting PEG and Tracheostomy.BP stable. Objective Vital Signs Temp Pulse Pulse Pulse Pulse Resp Resp 08/08/18 12:21 81 08/08/18 08:27 86 18 08:20 90 45 H 08/08/18 07:20 85 83 20 08/08/18 06:45 82 22 08/08/18 06:30 82 21 08/08/18 06:15 81 20 08/08/18 06:00 82 20 08/08/18 05:45 82 24 08/08/18 05:30 85 21 08/08/18 05:15 86 28 H 08/08/18 05:00 90 17 08/08/18 04:45 89 27 H 08/08/18 04:30 85 27 H 08/08/18 04:19 85 08/08/18 04:15 81 22 08/08/18 04:05 82 08/08/18 04:00 81 88 18 08/08/18 03:45 81 19 08/08/18 03:30 81 21 08/08/18 03:15 83 20 08/08/18 03:14 100.2 F H 08/08/18 03:00 83 20 08/08/18 02:45 82 18 08/08/18 02:30 83 22 08/08/18 02:15 84 24 08/08/18 02:00 82 22 08/08/18 01:45 84 17 08/08/18 01:30 87 23 08/08/18 01:15 85 21 08/08/18 01:00 87 24 08/08/18 00:46 85 26 H 08/08/18 00:35 82 08/08/18 00:30 81 24 08/08/18 00:15 84 23 08/08/18 00:10 68 08/08/18 00:06 84 22 08/08/18 00:00 85 22 18 23:50 67 18 08/07/18 23:47 86 22 18 23:45 83 21 08/07/18 23:30 79 22 08/07/18 23:23 100 F H 08/07/18 23:15 82 21 08/07/18 23:00 83 18 08/07/18 22:45 80 21 08/07/18 22:30 81 26 H 08/07/18 22:15 85 24 08/07/18 22:00 86 25 H 08/07/18 21:45 81 21 08/07/18 21:40 70 08/07/18 21:30 83 25 H 08/07/18 21:15 82 28 H 08/07/18 21:00 82 29 H 08/07/18 20:45 77 27 H 08/07/18 20:30 82 26 H 08/07/18 20:15 74 23 08/07/18 20:00 99.9 F H 76 74 24 08/07/18 19:45 69 16 08/07/18 19:38 76 08/07/18 19:30 76 74 24 08/07/18 19:25 74 08/07/18 19:15 77 27 H 08/07/18 19:00 73 24 08/07/18 18:46 80 31 H 08/07/18 18:30 85 25 H 08/07/18 18:15 71 17 08/07/18 18:00 69 21 08/07/18 17:45 72 20 08/07/18 17:30 72 25 H 08/07/18 17:15 74 23 08/07/18 17:00 76 21 08/07/18 16:50 77 08/07/18 16:46 82 08/07/18 16:45 80 20 08/07/18 16:30 76 19 08/07/18 16:15 77 18 08/07/18 16:00 99 F 74 82 20 08/07/18 15:45 74 19 08/07/18 15:30 75 22 08/07/18 15:15 76 24 08/07/18 15:00 75 25 H 08/07/18 14:45 76 23 08/07/18 14:30 82 24 08/07/18 14:15 82 22 08/07/18 14:00 88 22 08/07/18 13:45 85 24 08/07/18 13:30 91 H 24 08/07/18 13:15 88 28 H 08/07/18 13:00 98 H 36 H 08/07/18 12:50 97 H 08/07/18 12:45 94 H 33 H Resp BP Pulse Ox 08/08/18 12:21 109/54 92 08/08/18 08:27 115/58 08/08/18 08:20 85 08/08/18 07:20 135/61 94 08/08/18 06:45 120/57 88 12/24/18 06:30 113/56 89 12/24/18 06:15 119/56 89 18 06:00 116/54 89 18 05:45 117/55 18 05:30 111/55 90 18 05:15 126/63 91 18 05:00 131/62 89 18 04:45 128/61 90 18 04:30 128/61 91 18 04:19 117/68 18 04:15 117/68 90 18 04:05 124/58 92 18 04:00 124/58 91 18 03:45 120/59 91 08/08/18 03:30 117/54 92 18 03:15 123/57 92 18 03:14 08/08/18 03:00 122/57 92 18 02:45 124/58 93 08/08/18 02:30 121/57 91 18 02:15 124/57 91 18 02:00 125/54 90 18 01:45 124/57 91 18 01:30 121/57 91 18 01:15 125/50 92 18 01:00 124/50 93 18 00:46 132/56 93 18 00:35 115/51 94 18 00:30 128/57 92 18 00:15 122/53 91 18 00:10 124/65 18 00:06 124/53 93 18 00:00 124/53 92 08/07/18 23:50 93 23/18 23:47 127/53 94 23/18 23:45 127/53 92 23/18 23:30 119/57 91 08/07/18 23:23 08/07/18 23:15 121/55 92 08/07/18 23:00 112/52 93 23/18 22:45 115/51 93 23/18 22:30 111/54 92 08/07/18 22:15 117/54 91 18 22:00 107/55 90 18 21:45 105/51 89 18 21:40 109/64 18 21:30 110/50 88 18 21:15 107/51 87 18 21:00 110/48 87 18 20:45 109/47 87 18 20:30 107/59 92 18 20:15 114/55 93 18 20:00 117/54 95 18 19:45 104/51 95 18 19:38 25 H 08/07/18 19:30 25 H 117/52 93 08/07/18 19:25 122/61 94 08/07/18 19:15 122/61 91 08/07/18 19:00 118/52 92 18 18:46 116/57 92 18 18:30 121/51 94 18 18:15 111/53 08/07/18 18:00 118/54 93 08/07/18 17:45 114/53 92 08/07/18 17:30 120/56 93 08/07/18 17:15 114/57 93 08/07/18 17:00 116/56 93 08/07/18 16:50 118/55 95 08/07/18 16:46 118/55 08/07/18 16:45 118/55 93 08/07/18 16:30 114/59 92 18 16:15 114/57 93 18 16:00 118/57 95 08/07/18 15:45 116/60 93 18 15:30 118/57 92 18 15:15 116/57 92 18 15:00 117/55 97 18 14:45 119/57 91 18 14:30 119/60 90 18 14:15 117/52 91 18 14:00 116/58 92 18 13:45 112/52 89 18 13:30 121/57 88 18 13:15 127/64 93 18 13:00 123/58 91 08/07/18 12:50 132/56 95 08/07/18 12:45 132/56 92 - Physical Examination General: Other (intubated, sedated) HEENT: Positive: EOMI, Normocephaly, Mucus Membranes Moist Neck: Positive: neck supple, trachea midline. Negative: JVD/HJR Cardiac: Positive: Reg Rate and Rhythm Lungs: Positive: clear to auscultation Neuro: Positive: Other (intubated, sedated) Abdomen: Positive: Soft, Active Bowel Sounds Skin: Positive: Clear. Negative: Rash, Wound Musculoskeletal: No Fluid Collection, Normal Range of Motion Extremities: Present: upper extr. pulses, lower extr. pulses. Absent: edema - Labs and Meds Coagulation 08/07/18 Range/Units 15:08 PT 13.4 (12.2-14.9) Sec. INR 0.98 (0.87-1.13) APTT 23.2 L (24.2-36.6) Sec. CBC 08/07/18 08/08/18 Range/Units 15:08 02:09 WBC 14.6 H (4.5-11.0) K/mm3 RBC 2.88 L (3.65-5.03) M/mm3 Hgb 10.3 L 9.5 L (11.8-15.2) gm/dl Hct 32.2 L 29.9 L (35.5-45.6) % Plt Count 221 205 (140-440) K/mm3 Comprehensive Metabolic Panel 08/08/18 Range/Units 02:09 Sodium 145 (137-145) mmol/L Potassium 4.1 (3.6-5.0) mmol/L Chloride 100.4 (98-107) mmol/L Carbon Dioxide 39 H (22-30) mmol/L BUN 29 H (9-20) mg/dL Creatinine 0.5 L (0.8-1.5) mg/dL Glucose 124 H (75-100) mg/dL Calcium 8.9 (8.4-10.2) mg/dL - Imaging and Cardiology EKG: report reviewed, image reviewed Echo: report reviewed ( 07/27/2018 EF 60-65%, asymmetric septal hypertrophy, mild TR. 05/2017 showed EF 55-60%, grade 1 diastolic dysfunction, mild TR, RVSP 22mmHg. 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 Treat medically. ) - Telemetry EKG Rhythm: Sinus Rhythm - EKG Supraventricular dysrhythmia: atrial premature complexe - Allied health notes Allied health notes reviewed: PT
[2018-08-08] MEDS: fentaNYL DRIP Premix 2,000 MCG/100 ML BAG IV SCH (14:04)
[2018-08-08] MEDS: DIPRIVAN 10 MG/ML 1,000 MG/100 ML BOTTLE IV SCH (14:05)
--- NOTE | 2018-08-08 16:14 | Progress Note ---
Assessment and Plan Assessment and plan: 73 YO Male with H/O COPD, PVD, HTN, HLD, Seizure Disorder, Skin Cancer presents to ED for evaluation. Pt states that he has experienced shortness and chest palpitations over the past 2 days with worsening symptoms over the past 1 day. Pt acknowledges decreased exercise tolerance, as well as dyspnea on exertion. Pt was seen and evaluated by his unit technician today and was sent to [facility] ED for further care and evaluation. Pt denies fever, chills, leg swelling, calf pain, CP with deep breathing, hemoptysis, Prolonged air/car travel, or immobility, Back Pain, Syncope, Lightheadedness, recent ill contacts, unintentional weight loss, night sweats, or bone pain. Pt seen and evaluated in ED and found to have Atrial Fib with RVR refractory to cardizem drip, but improved with Amiodarone Drip, Acute Hypoxemic Respiratory Failure, SIRS. Pt admitted to ICU. The patient later after admission had further decompensation with respiratory distress. Patient reportedly was satting 60-70% on a nonrebreather and had to be emergently intubated. The patient remains intubated on mechanical ventilation Sepsis; - Blood cultures reveal Streptococcus anginosus. - ID consulted and change antibiotics to cefepime completed today 08/08 Left lower lobe pneumonia; - Continue antibiotics. - Sputum culture revealed Pseudomonas and MSSA Acute hypoxemic respiratory failure - Continue on mechanical ventilation and weaning per pulmonary - CXR showed vascular congestion Atrial fibrillation - Continue amiodarone - Cardiology following. - REGAN negative Acute renal failure - Etiology likely secondary to sepsis/ATN. - Renal ultrasound unremarkable. - Resolved Hypernatremia - increase tubefeeding COPD exacerbation. - Continue bronchodilators/nebulizers. - D/C steroids Hypertension. - Resume antihypertensive medications as needed. Hyperlipidemia. - Peripheral vascular disease. The high probability of a clinically significant, sudden or life threatening deterioration of the [respiratory] system(s) required my full and direct attention, intervention and personal management. The aggregate critical care time was [32] minutes. This time is in addition to time spent performing reported procedures but includes the following: [x] Data Review and interpretation [x] Patient assessment and monitoring of vital signs [x] Documentation [x] Medication orders and management History Interval history: Patient was seen and evaluated this morning, patient was alert and sitting on the chair. Intubated and on mechanical ventilation. Hospitalist Physical - Physical exam Narrative exam: Patient is intubated and on mechanical ventilation. The patient is obese. Vital signs as documented. Head exam is unremarkable. No scleral icterus . Neck is without jugular venous distension, thyromegaly, or carotid bruits. Lungs are clear to auscultation. Cardiac exam reveals regular rate and Rhythm. Abdominal exam reveals normal bowel sounds. Extremities are nonedematous and both femoral and pedal pulses are normal. 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 - Constitutional Vitals: Temp Pulse Resp BP Pulse Ox 99.2 F 74 21 108/57 90 08/08/18 12:00 08/08/18 15:30 08/08/18 15:30 08/08/18 15:30 08/08/18 15:30 General appearance: Present: no acute distress, other (intubated on mechanical ventilation) Results - Labs CBC & Chem 7: 08/08/18 02:09 08/08/18 02:09 Labs: Laboratory Last Values WBC 14.6 K/mm3 (4.5-11.0) H 08/08/18 02:09 RBC 2.88 M/mm3 (3.65-5.03) L 08/08/18 02:09 Hgb 9.5 gm/dl (11.8-15.2) L 08/08/18 02:09 Hct 29.9 % (35.5-45.6) L 08/08/18 02:09 MCV 104 fl (84-94) H 08/08/18 02:09 MCH 33 pg (28-32) H 08/08/18 02:09 MCHC 32 % (32-34) 08/08/18 02:09 RDW 16.8 % (13.2-15.2) H 08/08/18 02:09 Plt Count 205 K/mm3 (140-440) 08/08/18 02:09 Add Manual Diff Complete 08/08/18 02:09 Total Counted 100 08/08/18 02:09 Seg Neutrophils % Irrigator Head 08/05/18 12:39 Seg Neuts % (Manual) 73.0 % (40.0-70.0) H 08/08/18 02:09 Band Neutrophils % 5.0 % 08/08/18 02:09 Lymphocytes % (Manual) 9.0 % (13.4-35.0) L 08/08/18 02:09 Reactive Lymphs % (Man) 0 % 08/08/18 02:09 Monocytes % (Manual) 10.0 % (0.0-7.3) H 08/08/18 02:09 Eosinophils % (Manual) 0 % (0.0-4.3) 08/08/18 02:09 Basophils % (Manual) 0 % (0.0-1.8) 08/08/18 02:09 Metamyelocytes % 3.0 % 08/08/18 02:09 Myelocytes % 0 % 08/08/18 02:09 Promyelocytes % 0 % 08/08/18 02:09 Blast Cells % 0 % 08/08/18 02:09 Nucleated RBC % Not Reportable 08/08/18 02:09 Seg Neutrophils # Man 10.7 K/mm3 (1.8-7.7) H 08/08/18 02:09 Band Neutrophils # 0.7 K/mm3 08/08/18 02:09 Lymphocytes # (Manual) 1.3 K/mm3 (1.2-5.4) 08/08/18 02:09 Abs React Lymphs (Man) 0.0 K/mm3 08/08/18 02:09 Monocytes # (Manual) 1.5 K/mm3 (0.0-0.8) H 08/08/18 02:09 Eosinophils # (Manual) 0.0 K/mm3 (0.0-0.4) 08/08/18 02:09 Basophils # (Manual) 0.0 K/mm3 (0.0-0.1) 08/08/18 02:09 Metamyelocytes # 0.4 K/mm3 08/08/18 02:09 Myelocytes # 0.0 K/mm3 08/08/18 02:09 Promyelocytes # 0.0 K/mm3 08/08/18 02:09 Blast Cells # 0.0 K/mm3 08/08/18 02:09 Pathologist Review 07/28/18 06:01 WBC Morphology Not Reportable 08/08/18 02:09 Hypersegmented Neuts Not Reportable 08/08/18 02:09 Hyposegmented Neuts Not Reportable 08/08/18 02:09 Hypogranular Neuts Not Reportable 08/08/18 02:09 Smudge Cells Not Reportable 08/08/18 02:09 Toxic Granulation Not Reportable 08/08/18 02:09 Toxic Vacuolation Not Reportable 08/08/18 02:09 Dohle Bodies Not Reportable 08/08/18 02:09 Pelger-Huet Anomaly Not Reportable 08/08/18 02:09 Janiya Rods Not Reportable 08/08/18 02:09 Platelet Estimate Appears normal 08/08/18 02:09 Clumped Platelets Not Reportable 08/08/18 02:09 Plt Clumps, EDTA Not Reportable 08/08/18 02:09 Large Platelets Not Reportable 08/08/18 02:09 Giant Platelets Not Reportable 08/08/18 02:09 Platelet Satelliting Not Reportable 08/08/18 02:09 Plt Morphology Comment Not Reportable 08/08/18 02:09 RBC Morphology Not Reportable 08/08/18 02:09 Dimorphic RBCs Not Reportable 08/08/18 02:09 Polychromasia Not Reportable 08/08/18 02:09 Hypochromasia Few 08/08/18 02:09 Poikilocytosis Not Reportable 08/08/18 02:09 Anisocytosis 1+ 08/08/18 02:09 Microcytosis Not Reportable 08/08/18 02:09 Macrocytosis Not Reportable 08/08/18 02:09 Spherocytes Not Reportable 08/08/18 02:09 Pappenheimer Bodies Not Reportable 08/08/18 02:09 Sickle Cells Not Reportable 08/08/18 02:09 Target Cells Not Reportable 08/08/18 02:09 Tear Drop Cells Not Reportable 08/08/18 02:09 Ovalocytes Not Reportable 08/08/18 02:09 Stomatocytes Few 08/08/18 02:09 Helmet Cells Not Reportable 08/08/18 02:09 [place] Bodies Not Reportable 08/08/18 02:09 [place] Rings Not Reportable 08/08/18 02:09 [place] Cells Not Reportable 08/08/18 02:09 Bite Cells Not Reportable 08/08/18 02:09 Crenated Cell Not Reportable 08/08/18 02:09 Elliptocytes Not Reportable 08/08/18 02:09 Acanthocytes (Spur) Not Reportable 08/08/18 02:09 Rouleaux Not Reportable 08/08/18 02:09 Hemoglobin C Crystals Not Reportable 08/08/18 02:09 Schistocytes Not Reportable 08/08/18 02:09 Malaria parasites Not Reportable 08/08/18 02:09 Jigar Bodies Not Reportable 08/08/18 02:09 Hem Pathologist Commnt No 08/08/18 02:09 PT 13.4 Sec. (12.2-14.9) 08/07/18 15:08 INR 0.98 (0.87-1.13) 08/07/18 15:08 APTT 23.2 Sec. (24.2-36.6) L 08/07/18 15:08 D-Dimer 798.17 ng/mlDDU (0-234) H 07/27/18 15:52 Heparin Anti-Xa Level 0.35 U.I./ml (0.3-0.7) 08/08/18 07:12 POC ABG pH 7.461 (7.35-7.45) H 08/08/18 05:19 POC ABG pCO2 57.3 (35-45) H 08/08/18 05:19 POC ABG pO2 62 (80-105) L 08/08/18 05:19 POC ABG HCO3 40.8 08/08/18 05:19 POC ABG Total CO2 43 08/08/18 05:19 POC ABG O2 Sat 92 08/08/18 05:19 POC ABG Base Excess 17 08/08/18 05:19 FiO2 40 % 08/08/18 05:19 Sodium 145 mmol/L (137-145) 08/08/18 02:09 Potassium 4.1 mmol/L (3.6-5.0) 08/08/18 02:09 Chloride 100.4 mmol/L (98-107) 08/08/18 02:09 Carbon Dioxide 39 mmol/L (22-30) H 08/08/18 02:09 Anion Gap 10 mmol/L 08/08/18 02:09 BUN 29 mg/dL (9-20) H 08/08/18 02:09 Creatinine 0.5 mg/dL (0.8-1.5) L 08/08/18 02:09 Estimated GFR > 60 ml/min 08/08/18 02:09 BUN/Creatinine Ratio 58 % 08/08/18 02:09 Glucose 124 mg/dL (75-100) H 08/08/18 02:09 POC Glucose 149 (70-105) H 08/08/18 14:52 Lactic Acid 1.30 mmol/L (0.7-2.0) 08/03/18 16:48 Calcium 8.9 mg/dL (8.4-10.2) 08/08/18 02:09 Phosphorus 2.80 mg/dL (2.5-4.5) 08/06/18 05:17 Magnesium 2.30 mg/dL (1.7-2.3) 08/06/18 05:17 Total Bilirubin 1.30 mg/dL (0.1-1.2) H 07/27/18 12:59 AST 15 units/L (5-40) 07/27/18 12:59 ALT 16 units/L (7-56) 07/27/18 12:59 Alkaline Phosphatase 62 units/L (35-129) 07/27/18 12:59 Troponin T < 0.010 ng/mL (0.00-0.029) 07/27/18 12:59 C-Reactive Protein 2.30 mg/dL (0.00-1.30) H 08/03/18 16:48 NT-Pro-B Natriuret Pep 3913 pg/mL (0-900) H 07/27/18 12:59 Total Protein 6.2 g/dL (6.3-8.2) L 07/27/18 12:59 Albumin 3.6 g/dL (3.9-5) L 07/27/18 12:59 Albumin/Globulin Ratio 1.4 % 07/27/18 12:59 Triglycerides 64 mg/dL (2-149) 08/08/18 14:02 TSH 1.180 mlU/mL (0.270-4.200) 07/27/18 15:52 Free T4 1.28 ng/dL (0.76-1.46) 07/27/18 15:52 Urine Color Yellow (Yellow) 07/29/18 09:24 Urine Turbidity Cloudy (Clear) 07/29/18 09:24 Urine pH 5.0 (5.0-7.0) 07/29/18 09:24 Ur Specific [place] 1.017 (1.003-1.030) 07/29/18 09:24 Urine Protein 30 mg/dl mg/dL (Negative) 07/29/18 09:24 Urine Glucose (UA) Neg mg/dL (Negative) 07/29/18 09:24 Urine Ketones Neg mg/dL (Negative) 07/29/18 09:24 Urine Blood Mod (Negative) 07/29/18 09:24 Urine Nitrite Neg (Negative) 07/29/18 09:24 Urine Bilirubin Neg (Negative) 07/29/18 09:24 Urine Urobilinogen < 2.0 mg/dL (<2.0) 07/29/18 09:24 Ur Leukocyte Esterase Mod (Negative) 07/29/18 09:24 Urine WBC (Auto) 29.0 /HPF (0.0-6.0) H 07/29/18 09:24 Urine RBC (Auto) 7.0 /HPF (0.0-6.0) 07/29/18 09:24 U Epithel Cells (Auto) 2.0 /HPF (0-13.0) 07/29/18 09:24 Urine Bacteria (Auto) 1+ /HPF (Negative) 07/29/18 09:24 Urine Mucus Few /HPF 07/29/18 09:24 Urine Yeast (Budding) 1+ /HPF 07/29/18 09:24 Urine Creatinine 72.3 mg/dL (0.1-20.0) H 07/29/18 09:24 Urine Sodium 12 mmol/L 07/29/18 09:24 Random Vancomycin 9.2 ug/mL (0-40.0) 07/29/18 04:21 Nutrition/Malnutrition Assess - Dietary Evaluation Nutrition/Malnutrition Findings: Nutrition Notes Start: 07/28/18 10:54 Freq: Status: Active Protocol: Document 08/04/18 10:13 TW (Rec: 08/04/18 10:46 TW [id number]) Co-Sign 08/04/18 10:13 LP Nutrition Notes Initial or Follow up Reassessment Current Diagnoses Acute Kidney Injury COPD Sepsis Hypertension Heart Failure Respiratory Failure Other Pertinent Diagnosis Hx of Skin Cancer Current Diet Nepro at 50ml/hr Labs/Tests BUN: 35 Cr: 0.6 Medications Propofol at 2.53mL/hr (67 lipid kcal) Solumedrol Height 5 ft 8 in Weight 87.6 kg [place] Body Weight (lbs) 154.0 BMI 29.3 Weight change and time frame Wt. change noted. Subjective/Other Information Nepro infusing at goal rate of 50mL/hr. Per RN, pt. tolerating TF well. Percent of energy/protein needs met: 100%/69% Burn Absent Trauma Absent #1 Nutrition Diagnoses Inadequate oral intake Diagnosis Progress(for reassessment Continues documentation) Is patient on ventilator? Yes Is Patient Ambulatory and/or Out of Bed No REE-([place]-confined to bed) 7838.428 Calculation Used [facility] Recommendations [facility] Additional Notes protein (2g/kg IBW): 140g daily fluid: 1mL/kcal Nutrition Intervention Change Diet Order: Continue TF Nutrition Support: Nepro at 50mL/hr 250 mL free water flush q4h or per MD. Kcal 2,160 Protein (gm) 97 Fluid (mL) 872 Goal #1 TF tolerance and rate Goal #2 Meet at least 80% of kcal needs and 80-100% of protein needs. Anticipated Discharge Needs: unable to determine at this time Follow-Up By: 08/10/18 Additional Comments F/U for stable TF
[2018-08-09] MEDS: HumaLOG SUB-Q SCH ×7 (00:24→23:40)
[2018-08-09] MEDS: CARDIZEM PO SCH ×6 (00:25→23:40)
[2018-08-09] MEDS: SODIUM CHLORIDE FLUSH SYRINGE 10 ML IV SCH ×3 (00:26→23:06)
[2018-08-09 05:00] LABS: Basophils % (Auto) 0.1 % (0.0-1.8); Eosinophils # (Auto) 0.1 K/mm3 (0.0-0.4); Eosinophils % (Auto) 0.8 % (0.0-4.3); Hematocrit 30.7 % (35.5-45.6); Hemoglobin 9.6 gm/dl (11.8-15.2); Lymphocytes # (Auto) 0.6 K/mm3 (1.2-5.4); Lymphocytes % (Auto) 3.9 % (13.4-35.0); Mean Corpuscular HGB Conc 31 % (32-34); Mean Corpuscular Volume 107 fl (84-94); Monocytes # (Auto) 1.3 K/mm3 (0.0-0.8); Monocytes % (Auto) 8.1 % (0.0-7.3); Platelet Count 205 K/mm3 (140-440); Red Blood Count 2.87 M/mm3 (3.65-5.03); Red Cell Distribution Width 17.8 % (13.2-15.2)
[2018-08-09 05:15] LABS: BUN/Creatinine Ratio 52; Blood Urea Nitrogen 26 mg/dL (9-20); Calcium 8.7 mg/dL (8.4-10.2); Hemolysis Index 10
[2018-08-09] MEDS: DIPRIVAN 10 MG/ML 1,000 MG/100 ML BOTTLE IV SCH (06:58)
[2018-08-09] MEDS: BROVANA NEBU IH SCH ×2 (07:53→19:50)
[2018-08-09] MEDS: PULMICORT IH SCH ×2 (07:53→19:50)
[2018-08-09] MEDS: HEPARIN/ 0.45% NACL-25,000 UNIT/500 ML 25,000 UNIT/500 ML BAG IV SCH ×2 (08:30→23:36)
[2018-08-09] MEDS: CORDARONE PO SCH ×2 (09:55→23:06)
[2018-08-09] MEDS: PRAVACHOL PO SCH (09:55)
[2018-08-09] MEDS: VITAMIN B-12 PO SCH (09:56)
[2018-08-09] MEDS: PEPCID PO SCH ×2 (10:00→23:06)
--- NOTE | 2018-08-09 11:21 | Progress Note ---
Assessment and Plan Cultures: 07/27/2018 tracheal aspirate culture: Pseudomonas aeruginosa, MSSA 07/28/2018 blood culture: 4 out of 4 bottles positive for Streptococcus anginosus 07/28/2018 fungal blood culture: In progress but no growth thus far 07/29/2018 urine culture: No growth 08/01/2018 blood culture: negative thus far A/P: 73-year-old male with COPD, peripheral vascular disease, hypertension, hyperlipidemia, seizure disorder admitted with: 1) Sepsis secondary to Streptococcus anginosus bacteremia: Present on admission. Source is unclear. Patient does have evidence of pneumonia however sputum cultures are not concordant and are growing pseudomonas aeruginosa and MSSA. Reviewed cardiology note, REGAN was reportedly negative. Continue abx, previously received Ceftriaxone and Vancomycin, now Cefepime, completes abx today. 2) Acute respiratory failure secondary to congestive heart failure and pneumonia: completed IV cefepime to cover both MSSA and Pseudomonas. Awaiting trach. 3) CARLEE, present on admission, now resolved. 4) Leucocytosis: ?multifactorial. patient was on steroids. No new fever. Will monitor for now. Recs: monitor off antibiotics awaiting trach/PEG Will follow along. d/w Dr. Stewart. Rhea Ro MD [facility] C: [phone] O: [phone] F: [phone] Subjective Date of service: 08/09/18 Principal diagnosis: AFib Interval history: Low grade temperatures +, no high fever. no new complaints. Remains on the vent, awaiting trach/PEG. Objective - Exam Narrative Exam: Physical Exam: Constitutional: drowsy but can easily be awakened, still intubated Head, Ears, Nose: Normocephalic, atraumatic. External ears, nose normal Eyes: Conjunctivae/corneas clear. No icterus. No ptosis. Neck: Supple, no meningeal signs Oral: intubated Cardiovascular: S1, S2 normal Respiratory: no rhonchi or crackles GI: Soft, non-tender; bowel sounds normal. No peritoneal signs Musculoskeletal: trace pedal edema, no cyanosis. Skin: No rash or abscess Hem/Lymphatic: No palpable cervical or supraclavicular nodes. No lymphangitis Psych: no agitation Neurological: drowsy but can easily be awakened, intubated - Constitutional Vitals: Vital Signs Temp Pulse Resp BP Pulse Ox 99.2 F 83 28 H 138/57 93 08/09/18 08:00 08/09/18 08:51 08/09/18 07:53 08/09/18 08:51 08/09/18 07:56 Temperature -Last 24 Hours Temperature 99.2 F Temperature 100.4 F Temperature 99 F Temperature 98.8 F Temperature 99.2 F - Labs CBC & Chem 7: 08/09/18 03:52 08/09/18 03:52 Labs: Abnormal lab results 08/08/18 08/08/18 08/09/18 Range/Units 14:52 16:12 02:26 WBC (4.5-11.0) K/mm3 RBC (3.65-5.03) M/mm3 Hgb (11.8-15.2) gm/dl Hct (35.5-45.6) % MCV (84-94) fl MCH (28-32) pg MCHC (32-34) % RDW (13.2-15.2) % Lymph % (Auto) (13.4-35.0) % [place] % (Auto) (0.0-7.3) % Lymph # (1.2-5.4) K/mm3 [place] # (0.0-0.8) K/mm3 Seg Neutrophils % (40.0-70.0) % Seg Neutrophils # (1.8-7.7) K/mm3 Heparin Anti-Xa Level (0.3-0.7) U.I./ml POC ABG pCO2 (35-45) POC ABG pO2 (80-105) Carbon Dioxide (22-30) mmol/L BUN (9-20) mg/dL Creatinine (0.8-1.5) mg/dL Glucose (75-100) mg/dL POC Glucose 149 H 136 H 126 H (70-105) 08/09/18 08/09/18 08/09/18 Range/Units 03:52 03:52 03:52 WBC 15.9 H (4.5-11.0) K/mm3 RBC 2.87 L (3.65-5.03) M/mm3 Hgb 9.6 L (11.8-15.2) gm/dl Hct 30.7 L (35.5-45.6) % MCV 107 H (84-94) fl MCH 34 H (28-32) pg MCHC 31 L (32-34) % RDW 17.8 H (13.2-15.2) % Lymph % (Auto) 3.9 L (13.4-35.0) % [place] % (Auto) 8.1 H (0.0-7.3) % Lymph # 0.6 L (1.2-5.4) K/mm3 [place] # 1.3 H (0.0-0.8) K/mm3 Seg Neutrophils % 87.1 H (40.0-70.0) % Seg Neutrophils # 13.9 H (1.8-7.7) K/mm3 Heparin Anti-Xa Level 0.25 L (0.3-0.7) U.I./ml POC ABG pCO2 (35-45) POC ABG pO2 (80-105) Carbon Dioxide 39 H (22-30) mmol/L BUN 26 H (9-20) mg/dL Creatinine 0.5 L (0.8-1.5) mg/dL Glucose 128 H (75-100) mg/dL POC Glucose (70-105) 08/09/18 08/09/18 08/09/18 Range/Units 05:34 06:48 09:28 WBC (4.5-11.0) K/mm3 RBC (3.65-5.03) M/mm3 Hgb (11.8-15.2) gm/dl Hct (35.5-45.6) % MCV (84-94) fl MCH (28-32) pg MCHC (32-34) % RDW (13.2-15.2) % Lymph % (Auto) (13.4-35.0) % [place] % (Auto) (0.0-7.3) % Lymph # (1.2-5.4) K/mm3 [place] # (0.0-0.8) K/mm3 Seg Neutrophils % (40.0-70.0) % Seg Neutrophils # (1.8-7.7) K/mm3 Heparin Anti-Xa Level (0.3-0.7) U.I./ml POC ABG pCO2 57.5 H (35-45) POC ABG pO2 58 L (80-105) Carbon Dioxide (22-30) mmol/L BUN (9-20) mg/dL Creatinine (0.8-1.5) mg/dL Glucose (75-100) mg/dL POC Glucose 171 H 183 H (70-105) //18 Range/Units 09:36 WBC (4.5-11.0) K/mm3 RBC (3.65-5.03) M/mm3 Hgb (11.8-15.2) gm/dl Hct (35.5-45.6) % MCV (84-94) fl MCH (28-32) pg MCHC (32-34) % RDW (13.2-15.2) % Lymph % (Auto) (13.4-35.0) % [place] % (Auto) (0.0-7.3) % Lymph # (1.2-5.4) K/mm3 [place] # (0.0-0.8) K/mm3 Seg Neutrophils % (40.0-70.0) % Seg Neutrophils # (1.8-7.7) K/mm3 Heparin Anti-Xa Level 0.26 L (0.3-0.7) U.I./ml POC ABG pCO2 (35-45) POC ABG pO2 (80-105) Carbon Dioxide (22-30) mmol/L BUN (9-20) mg/dL Creatinine (0.8-1.5) mg/dL Glucose (75-100) mg/dL POC Glucose (70-105)
--- NOTE | 2018-08-09 11:25 | Event Note ---
Date: 08/09/18 Pt is scheduled for tracheostomy and PEG tube placement tomorrow 08/10/18 at 11am. Chart reviewed. VSS. Vent settings: AC RR:16 TV:450 Fio2:40 PEEP:8. Orders placed to obtain tracheostomy tray, hold TF after midnight tonight, and to hold heparin gtt at 5am on 07/31/18. Consent on chart. Please call with questions.
--- NOTE | 2018-08-09 11:54 | Progress Note ---
Assessment and Plan No change in his overall condition. Awaiting PEG and tracheostomy. Hold IV heparin 4 hours before the procedure.Will follow. - Patient Problems (1) CARLEE (acute kidney injury) Current Visit: Yes Status: Resolved (2) Acidosis Current Visit: Yes Status: Resolved (3) Acute respiratory failure Current Visit: Yes Status: Acute Qualifiers: Respiratory failure complication: hypoxia Qualified Code(s): J96.01 - Acute respiratory failure with hypoxia (4) Atrial fibrillation Current Visit: Yes Status: Resolved Qualifiers: Atrial fibrillation type: persistent Qualified Code(s): I48.1 - Persistent atrial fibrillation (5) CHF (congestive heart failure) Current Visit: Yes Status: Acute Qualifiers: Heart failure type: systolic Heart failure chronicity: acute Qualified Code(s): I50.21 - Acute systolic (congestive) heart failure (6) Hematuria Current Visit: Yes Status: Resolved (7) Lactic acid acidosis Current Visit: Yes Status: Resolved (8) Pneumonia Current Visit: Yes Status: Acute (9) SIRS (systemic inflammatory response syndrome) Current Visit: Yes Status: Chronic (10) COPD (chronic obstructive pulmonary disease) Current Visit: Yes Status: Chronic (11) Hyperlipemia Current Visit: Yes Status: Chronic Qualifiers: Hyperlipidemia type: Mixed hyperlipidemia (12) Hypertension Current Visit: Yes Status: Chronic Qualifiers: Hypertension type: essential hypertension Qualified Code(s): I10 - Essential (primary) hypertension (13) Nonobstructive atherosclerosis of coronary artery Current Visit: Yes Status: Chronic (14) Peripheral vascular disease Current Visit: Yes Status: Chronic (15) Acute blood loss anemia Current Visit: No Status: Acute (16) COPD exacerbation Current Visit: No Status: Acute (17) Cavitary pneumonia Current Visit: No Status: Acute (18) Respiratory failure Current Visit: No Status: Acute (19) S/P vascular surgery Current Visit: No Status: Acute (20) 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 Objective Vital Signs Temp Pulse Pulse Pulse Resp Resp BP 08/09/18 08:51 83 138/57 08/09/18 08:00 99.2 F 08/09/18 07:56 73 120/56 12/25/18 07:53 70 28 H 08/09/18 06:30 70 19 102/54 08/09/18 06:15 67 17 106/56 08/09/18 06:00 66 21 105/54 18 05:45 68 22 94/57 18 05:30 72 15 118/59 18 05:21 72 105/49 08/09/18 05:15 74 25 H 105/49 18 05:00 70 22 112/56 18 04:45 73 21 113/56 08/09/18 04:41 76 114/53 08/09/18 04:30 71 21 114/53 08/09/18 04:15 75 22 111/52 08/09/18 04:00 100.4 F H 71 74 19 113/53 18 03:45 69 20 115/56 08/09/18 03:30 78 20 106/51 08/09/18 03:15 74 22 106/52 08/09/18 03:00 69 21 108/55 18 02:45 70 20 107/54 08/09/18 02:30 68 22 121/52 08/09/18 02:15 75 22 117/55 08/09/18 02:00 77 21 112/52 08/09/18 01:45 73 21 106/49 18 01:30 76 22 106/54 08/09/18 01:15 77 26 H 106/50 18 01:00 87 24 99/49 18 00:45 94 H 20 99/49 18 00:30 84 22 106/52 18 00:25 83 106/52 18 00:15 85 27 H 106/52 18 00:00 99 F 74 74 30 H 125/53 18 23:46 76 30 H 120/57 18 23:30 82 26 H 114/55 18 23:26 77 108/49 18 23:15 76 27 H 108/49 18 23:00 79 25 H 101/52 18 22:45 74 18 107/47 12/24/18 22:36 72 22 102/60 18 22:30 80 19 102/60 18 22:28 69 19 101/56 18 22:23 78 104/51 18 22:15 81 25 H 104/51 18 22:00 70 21 111/60 18 21:45 71 20 104/53 18 21:30 73 28 H 112/56 18 21:15 71 20 113/52 18 21:00 73 21 103/53 18 20:45 74 23 107/55 18 20:30 66 16 101/52 18 20:15 66 16 101/56 18 20:10 86 17 18 20:00 70 70 16 113/53 18 19:56 84 105/57 18 19:55 84 17 08/08/18 19:45 68 19 105/57 18 19:30 69 19 103/54 18 19:15 68 19 111/58 18 19:00 69 19 104/53 18 18:45 72 18 103/53 18 18:30 68 18 98/53 18 18:15 67 20 103/54 18 18:00 69 21 106/56 18 17:45 72 19 104/55 18 17:30 68 22 107/56 18 17:27 71 107/56 18 17:15 72 19 101/55 18 17:00 71 18 106/53 18 16:45 83 17 100/50 18 16:30 70 20 101/54 18 16:15 75 20 103/58 18 16:00 98.8 F 74 70 20 99/49 18 15:45 75 21 102/59 18 15:30 74 21 108/57 18 15:15 72 19 108/55 18 15:00 74 20 105/56 18 14:45 78 22 106/54 08/08/18 14:30 80 22 122/57 08/08/18 14:15 82 24 122/57 08/08/18 14:00 81 26 H 129/55 08/08/18 13:45 87 23 121/67 08/08/18 13:30 78 24 119/58 08/08/18 13:15 78 24 116/56 08/08/18 13:00 78 21 112/57 08/08/18 12:45 76 22 110/58 08/08/18 12:30 78 22 109/54 08/08/18 12:21 81 109/54 08/08/18 12:15 79 22 109/54 08/08/18 12:00 99.2 F 78 86 21 101/51 Pulse Ox 08/09/18 08:51 08/09/18 08:00 08/09/18 07:56 93 08/09/18 07:53 08/09/18 06:30 95 08/09/18 06:15 95 08/09/18 06:00 08/09/18 05:45 95 08/09/18 05:30 100 08/09/18 05:21 92 08/09/18 05:15 92 08/09/18 05:00 95 08/09/18 04:45 93 08/09/18 04:41 08/09/18 04:30 94 08/09/18 04:15 94 08/09/18 04:00 100 08/09/18 03:45 100 08/09/18 03:30 100 08/09/18 03:15 96 08/09/18 03:00 97 08/09/18 02:45 96 08/09/18 02:30 96 08/09/18 02:15 100 08/09/18 02:00 95 08/09/18 01:45 95 08/09/18 01:30 95 08/09/18 01:15 95 08/09/18 01:00 93 08/09/18 00:45 94 08/09/18 00:30 08/09/18 00:25 08/09/18 00:15 92 08/09/18 00:00 87 08/08/18 23:46 88 08/08/18 23:30 95 08/08/18 23:26 96 08/08/18 23:15 90 08/08/18 23:00 89 08/08/18 22:45 93 08/08/18 22:36 92 08/08/18 22:30 92 08/08/18 22:28 91 08/08/18 22:23 08/08/18 22:15 89 08/08/18 22:00 90 08/08/18 21:45 90 08/08/18 21:30 90 08/08/18 21:15 92 08/08/18 21:00 91 08/08/18 20:45 90 08/08/18 20:30 91 08/08/18 20:15 96 08/08/18 20:10 08/08/18 20:00 96 08/08/18 19:56 92 08/08/18 19:55 08/08/18 19:45 90 08/08/18 19:30 92 08/08/18 19:15 08/08/18 19:00 91 08/08/18 18:45 91 08/08/18 18:30 91 08/08/18 18:15 90 08/08/18 18:00 90 08/08/18 17:45 91 08/08/18 17:30 94 08/08/18 17:27 92 08/08/18 17:15 90 08/08/18 17:00 89 08/08/18 16:45 91 08/08/18 16:30 90 08/08/18 16:15 89 08/08/18 16:00 90 08/08/18 15:45 91 08/08/18 15:30 90 08/08/18 15:15 93 08/08/18 15:00 08/08/18 14:45 90 08/08/18 14:30 08/08/18 14:15 89 08/08/18 14:00 89 08/08/18 13:45 90 08/08/18 13:30 90 08/08/18 13:15 90 08/08/18 13:00 90 08/08/18 12:45 90 08/08/18 12:30 08/08/18 12:21 92 08/08/18 12:15 08/08/18 12:00 89 - Physical Examination General: Other (intubated, sedated) HEENT: Positive: EOMI, Normocephaly, Mucus Membranes Moist Neck: Positive: neck supple, trachea midline. Negative: JVD/HJR Cardiac: Positive: Reg Rate and Rhythm Lungs: Positive: clear to auscultation Neuro: Positive: Other (intubated, sedated) Abdomen: Positive: Soft, Active Bowel Sounds Skin: Positive: Clear. Negative: Rash, Wound Musculoskeletal: No Fluid Collection, Normal Range of Motion Extremities: Present: upper extr. pulses, lower extr. pulses. Absent: edema - Labs and Meds Lipids 08/08/18 Range/Units 14:02 Triglycerides 64 (2-149) mg/dL CBC 08/09/18 Range/Units 03:52 WBC 15.9 H (4.5-11.0) K/mm3 RBC 2.87 L (3.65-5.03) M/mm3 Hgb 9.6 L (11.8-15.2) gm/dl Hct 30.7 L (35.5-45.6) % Plt Count 205 (140-440) K/mm3 Lymph # 0.6 L (1.2-5.4) K/mm3 [place] # 1.3 H (0.0-0.8) K/mm3 Eos # 0.1 (0.0-0.4) K/mm3 Baso # 0.0 (0.0-0.1) K/mm3 Comprehensive Metabolic Panel 08/09/18 Range/Units 03:52 Sodium 142 (137-145) mmol/L Potassium 4.3 (3.6-5.0) mmol/L Chloride 99.2 (98-107) mmol/L Carbon Dioxide 39 H (22-30) mmol/L BUN 26 H (9-20) mg/dL Creatinine 0.5 L (0.8-1.5) mg/dL Glucose 128 H (75-100) mg/dL Calcium 8.7 (8.4-10.2) mg/dL - Imaging and Cardiology EKG: report reviewed, image reviewed Echo: report reviewed ( 07/27/2018 EF 60-65%, asymmetric septal hypertrophy, mild TR. 05/2017 showed EF 55-60%, grade 1 diastolic dysfunction, mild TR, RVSP 22mmHg. 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 Treat medically. ) - Telemetry EKG Rhythm: Sinus Rhythm - EKG Supraventricular dysrhythmia: atrial fibrillation - Allied health notes Allied health notes reviewed: PT
--- NOTE | 2018-08-09 11:56 | Progress Note ---
Assessment and Plan Assessment and plan: Sepsis. Blood cultures reveal Streptococcus anginosus. Continue antibiotics per ID--completed cefepime Acute kidney injury. Etiology secondary to above. Continue to monitor creatinine. Left lower lobe pneumonia. Continue antibiotics and follow chest x-ray. Sputum culture revealed Pseudomonas and MSSA Acute hypoxemic respiratory failure. Etiology secondary to above. Continue on mechanical ventilation and weaning per pulmonary. Follow-up serial chest x-ray and ABGs. Pt is scheduled for tracheostomy and PEG tube placement tomorrow 08/10/18 at 11am. Atrial fibrillation. Continue amiodarone and diltiazem. Cardiology following. REGAN negative Acute renal failure. Etiology likely secondary to sepsis/ATN. Renal ultrasound unremarkable. COPD exacerbation. Continue bronchodilators/nebulizers. IV steroids. Hypertension. Resume antihypertensive medications as needed. Hyperlipidemia. Peripheral vascular disease. The high probability of a clinically significant, sudden or life threatening deterioration of the [respiratory] system(s) required my full and direct attention, intervention and personal management. The aggregate critical care time was [32] minutes. This time is in addition to time spent performing reported procedures but includes the following: [x] Data Review and interpretation [x] Patient assessment and monitoring of vital signs [x] Documentation [x] Medication orders and management History Interval history: 73 YO Male with H/O COPD, PVD, HTN, HLD, Seizure Disorder, Skin Cancer presents to ED for evaluation. Pt states that he has experienced shortness and chest palpitations over the past 2 days with worsening symptoms over the past 1 day. Pt acknowledges decreased exercise tolerance, as well as dyspnea on exertion. 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 Pt denies fever, chills, leg swelling, calf pain, CP with deep breathing, hemoptysis, Prolonged air/car travel, or immobility, Back Pain, Syncope, Lightheadedness, recent ill contacts, unintentional weight loss, night sweats, or bone pain. Pt seen and evaluated in ED and found to have Atrial Fib with RVR refractory to cardizem drip, but improved with Amiodarone Drip, Acute Hypoxemic Respiratory Failure, SIRS. Pt admitted to ICU. The patient later after admission had further decompensation with respiratory distress. Patient reportedly was satting 60-70% on a nonrebreather and had to be emergently intubated. The patient remains intubated on mechanical ventilation Hospitalist Physical - Constitutional Vitals: Temp Pulse Resp BP Pulse Ox 99.2 F 83 28 H 138/57 93 08/09/18 08:00 08/09/18 08:51 08/09/18 07:53 08/09/18 08:51 08/09/18 07:56 General appearance: Present: no acute distress, other (intubated on mechanical ventilation) - EENT Eyes: Present: PERRL, EOM intact ENT: hearing intact, clear oral mucosa, dentition normal - Neck Neck: Present: supple, normal ROM - Respiratory Respiratory effort: normal Respiratory: bilateral: CTA - Cardiovascular Rhythm: regular Heart Sounds: Present: S1 & S2. Absent: gallop, rub - Extremities Extremities: no ischemia, No edema, Full ROM - Abdominal General gastrointestinal: soft, non-tender, non-distended, normal bowel sounds - Integumentary Integumentary: Present: clear, warm, dry - Neurologic Neurologic: CNII-XII intact, moves all extremities Results - Labs CBC & Chem 7: 08/09/18 03:52 08/09/18 03:52 Labs: Laboratory Last Values WBC 15.9 K/mm3 (4.5-11.0) H 08/09/18 03:52 RBC 2.87 M/mm3 (3.65-5.03) L 08/09/18 03:52 Hgb 9.6 gm/dl (11.8-15.2) L 08/09/18 03:52 Hct 30.7 % (35.5-45.6) L 08/09/18 03:52 MCV 107 fl (84-94) H 08/09/18 03:52 MCH 34 pg (28-32) H 08/09/18 03:52 MCHC 31 % (32-34) L 08/09/18 03:52 RDW 17.8 % (13.2-15.2) H 08/09/18 03:52 Plt Count 205 K/mm3 (140-440) 08/09/18 03:52 Lymph % (Auto) 3.9 % (13.4-35.0) L 08/09/18 03:52 [place] % (Auto) 8.1 % (0.0-7.3) H 08/09/18 03:52 Eos % (Auto) 0.8 % (0.0-4.3) 08/09/18 03:52 Baso % (Auto) 0.1 % (0.0-1.8) 08/09/18 03:52 Lymph # 0.6 K/mm3 (1.2-5.4) L 08/09/18 03:52 [place] # 1.3 K/mm3 (0.0-0.8) H 08/09/18 03:52 Eos # 0.1 K/mm3 (0.0-0.4) 08/09/18 03:52 Baso # 0.0 K/mm3 (0.0-0.1) 08/09/18 03:52 Add Manual Diff Complete 08/08/18 02:09 Total Counted 100 08/08/18 02:09 Seg Neutrophils % 87.1 % (40.0-70.0) H 08/09/18 03:52 Seg Neuts % (Manual) 73.0 % (40.0-70.0) H 08/08/18 02:09 Band Neutrophils % 5.0 % 08/08/18 02:09 Lymphocytes % (Manual) 9.0 % (13.4-35.0) L 08/08/18 02:09 Reactive Lymphs % (Man) 0 % 08/08/18 02:09 Monocytes % (Manual) 10.0 % (0.0-7.3) H 08/08/18 02:09 Eosinophils % (Manual) 0 % (0.0-4.3) 08/08/18 02:09 Basophils % (Manual) 0 % (0.0-1.8) 08/08/18 02:09 Metamyelocytes % 3.0 % 08/08/18 02:09 Myelocytes % 0 % 08/08/18 02:09 Promyelocytes % 0 % 08/08/18 02:09 Blast Cells % 0 % 08/08/18 02:09 Nucleated RBC % Not Reportable 08/08/18 02:09 Seg Neutrophils # 13.9 K/mm3 (1.8-7.7) H 08/09/18 03:52 Seg Neutrophils # Man 10.7 K/mm3 (1.8-7.7) H 08/08/18 02:09 Band Neutrophils # 0.7 K/mm3 08/08/18 02:09 Lymphocytes # (Manual) 1.3 K/mm3 (1.2-5.4) 08/08/18 02:09 Abs React Lymphs (Man) 0.0 K/mm3 08/08/18 02:09 Monocytes # (Manual) 1.5 K/mm3 (0.0-0.8) H 08/08/18 02:09 Eosinophils # (Manual) 0.0 K/mm3 (0.0-0.4) 08/08/18 02:09 Basophils # (Manual) 0.0 K/mm3 (0.0-0.1) 08/08/18 02:09 Metamyelocytes # 0.4 K/mm3 08/08/18 02:09 Myelocytes # 0.0 K/mm3 08/08/18 02:09 Promyelocytes # 0.0 K/mm3 08/08/18 02:09 Blast Cells # 0.0 K/mm3 08/08/18 02:09 Pathologist Review 07/28/18 06:01 WBC Morphology Not Reportable 08/08/18 02:09 Hypersegmented Neuts Not Reportable 08/08/18 02:09 Hyposegmented Neuts Not Reportable 08/08/18 02:09 Hypogranular Neuts Not Reportable 08/08/18 02:09 Smudge Cells Not Reportable 08/08/18 02:09 Toxic Granulation Not Reportable 08/08/18 02:09 Toxic Vacuolation Not Reportable 08/08/18 02:09 Dohle Bodies Not Reportable 08/08/18 02:09 Pelger-Huet Anomaly Not Reportable 08/08/18 02:09 Janiya Rods Not Reportable 08/08/18 02:09 Platelet Estimate Appears normal 08/08/18 02:09 Clumped Platelets Not Reportable 08/08/18 02:09 Plt Clumps, EDTA Not Reportable 08/08/18 02:09 Large Platelets Not Reportable 08/08/18 02:09 Giant Platelets Not Reportable 08/08/18 02:09 Platelet Satelliting Not Reportable 08/08/18 02:09 Plt Morphology Comment Not Reportable 08/08/18 02:09 RBC Morphology Not Reportable 08/08/18 02:09 Dimorphic RBCs Not Reportable 08/08/18 02:09 Polychromasia Not Reportable 08/08/18 02:09 Hypochromasia Few 08/08/18 02:09 Poikilocytosis Not Reportable 08/08/18 02:09 Anisocytosis 1+ 08/08/18 02:09 Microcytosis Not Reportable 08/08/18 02:09 Macrocytosis Not Reportable 08/08/18 02:09 Spherocytes Not Reportable 08/08/18 02:09 Pappenheimer Bodies Not Reportable 08/08/18 02:09 Sickle Cells Not Reportable 08/08/18 02:09 Target Cells Not Reportable 08/08/18 02:09 Tear Drop Cells Not Reportable 08/08/18 02:09 Ovalocytes Not Reportable 08/08/18 02:09 Stomatocytes Few 08/08/18 02:09 Helmet Cells Not Reportable 08/08/18 02:09 Lr-Homer C Jones Bodies Not Reportable 08/08/18 02:09 [place] Rings Not Reportable 08/08/18 02:09 Armando Cells Not Reportable 08/08/18 02:09 Bite Cells Not Reportable 08/08/18 02:09 Crenated Cell Not Reportable 08/08/18 02:09 Elliptocytes Not Reportable 08/08/18 02:09 Acanthocytes (Spur) Not Reportable 08/08/18 02:09 Rouleaux Not Reportable 08/08/18 02:09 Hemoglobin C Crystals Not Reportable 08/08/18 02:09 Schistocytes Not Reportable 08/08/18 02:09 Malaria parasites Not Reportable 08/08/18 02:09 Jigar Bodies Not Reportable 08/08/18 02:09 Hem Pathologist Commnt No 08/08/18 02:09 PT 13.4 Sec. (12.2-14.9) 08/07/18 15:08 INR 0.98 (0.87-1.13) 08/07/18 15:08 APTT 23.2 Sec. (24.2-36.6) L 08/07/18 15:08 D-Dimer 798.17 ng/mlDDU (0-234) H 07/27/18 15:52 Heparin Anti-Xa Level 0.26 U.I./ml (0.3-0.7) L 08/09/18 09:36 POC ABG pH 7.428 (7.35-7.45) 08/09/18 05:34 POC ABG pCO2 57.5 (35-45) H 08/09/18 05:34 POC ABG pO2 58 (80-105) L 08/09/18 05:34 POC ABG HCO3 38.0 08/09/18 05:34 POC ABG Total CO2 40 08/09/18 05:34 POC ABG O2 Sat 90 08/09/18 05:34 POC ABG Base Excess 14 08/09/18 05:34 FiO2 40 % 08/08/18 05:19 Sodium 142 mmol/L (137-145) 08/09/18 03:52 Potassium 4.3 mmol/L (3.6-5.0) 08/09/18 03:52 Chloride 99.2 mmol/L (98-107) 08/09/18 03:52 Carbon Dioxide 39 mmol/L (22-30) H 08/09/18 03:52 Anion Gap 8 mmol/L 08/09/18 03:52 BUN 26 mg/dL (9-20) H 08/09/18 03:52 Creatinine 0.5 mg/dL (0.8-1.5) L 08/09/18 03:52 Estimated GFR > 60 ml/min 08/09/18 03:52 BUN/Creatinine Ratio 52 % 08/09/18 03:52 Glucose 128 mg/dL (75-100) H 08/09/18 03:52 POC Glucose 183 (70-105) H 08/09/18 09:28 Lactic Acid 1.30 mmol/L (0.7-2.0) 08/03/18 16:48 Calcium 8.7 mg/dL (8.4-10.2) 08/09/18 03:52 Phosphorus 2.80 mg/dL (2.5-4.5) 08/06/18 05:17 Magnesium 2.30 mg/dL (1.7-2.3) 08/06/18 05:17 Total Bilirubin 1.30 mg/dL (0.1-1.2) H 07/27/18 12:59 AST 15 units/L (5-40) 07/27/18 12:59 ALT 16 units/L (7-56) 07/27/18 12:59 Alkaline Phosphatase 62 units/L (35-129) 07/27/18 12:59 Troponin T < 0.010 ng/mL (0.00-0.029) 07/27/18 12:59 C-Reactive Protein 2.30 mg/dL (0.00-1.30) H 08/03/18 16:48 NT-Pro-B Natriuret Pep 3913 pg/mL (0-900) H 07/27/18 12:59 Total Protein 6.2 g/dL (6.3-8.2) L 07/27/18 12:59 Albumin 3.6 g/dL (3.9-5) L 07/27/18 12:59 Albumin/Globulin Ratio 1.4 % 07/27/18 12:59 Triglycerides 64 mg/dL (2-149) 08/08/18 14:02 TSH 1.180 mlU/mL (0.270-4.200) 07/27/18 15:52 Free T4 1.28 ng/dL (0.76-1.46) 07/27/18 15:52 Urine Color Yellow (Yellow) 07/29/18 09:24 Urine Turbidity Cloudy (Clear) 07/29/18 09:24 Urine pH 5.0 (5.0-7.0) 07/29/18 09:24 Ur Specific [place] 1.017 (1.003-1.030) 07/29/18 09:24 Urine Protein 30 mg/dl mg/dL (Negative) 07/29/18 09:24 Urine Glucose (UA) Neg mg/dL (Negative) 07/29/18 09:24 Urine Ketones Neg mg/dL (Negative) 07/29/18 09:24 Urine Blood Mod (Negative) 07/29/18 09:24 Urine Nitrite Neg (Negative) 07/29/18 09:24 Urine Bilirubin Neg (Negative) 07/29/18 09:24 Urine Urobilinogen < 2.0 mg/dL (<2.0) 07/29/18 09:24 Ur Leukocyte Esterase Mod (Negative) 07/29/18 09:24 Urine WBC (Auto) 29.0 /HPF (0.0-6.0) H 07/29/18 09:24 Urine RBC (Auto) 7.0 /HPF (0.0-6.0) 07/29/18 09:24 U Epithel Cells (Auto) 2.0 /HPF (0-13.0) 07/29/18 09:24 Urine Bacteria (Auto) 1+ /HPF (Negative) 07/29/18 09:24 Urine Mucus Few /HPF 07/29/18 09:24 Urine Yeast (Budding) 1+ /HPF 07/29/18 09:24 Urine Creatinine 72.3 mg/dL (0.1-20.0) H 07/29/18 09:24 Urine Sodium 12 mmol/L 07/29/18 09:24 Random Vancomycin 9.2 ug/mL (0-40.0) 07/29/18 04:21 Nutrition/Malnutrition Assess - Dietary Evaluation Nutrition/Malnutrition Findings: Nutrition Notes Start: 07/28/18 10:54 Freq: Status: Active Protocol: Document 08/04/18 10:13 TW (Rec: 08/04/18 10:46 TW [id number]) Co-Sign 08/04/18 10:13 LP Nutrition Notes Initial or Follow up Reassessment Current Diagnoses Acute Kidney Injury COPD Sepsis Hypertension Heart Failure Respiratory Failure Other Pertinent Diagnosis Hx of Skin Cancer Current Diet Nepro at 50ml/hr Labs/Tests BUN: 35 Cr: 0.6 Medications Propofol at 2.53mL/hr (67 lipid kcal) Solumedrol Height 5 ft 8 in Weight 87.6 kg [place] Body Weight (lbs) 154.0 BMI 29.3 Weight change and time frame Wt. change noted. Subjective/Other Information Nepro infusing at goal rate of 50mL/hr. Per RN, pt. tolerating TF well. Percent of energy/protein needs met: 100%/69% Burn Absent Trauma Absent #1 Nutrition Diagnoses Inadequate oral intake Diagnosis Progress(for reassessment Continues documentation) Is patient on ventilator? Yes Is Patient Ambulatory and/or Out of Bed No REE-([facility]-confined to bed) 9612.354 Calculation Used for Recommendations [facility] Additional Notes protein (2g/kg IBW): 140g daily fluid: 1mL/kcal Nutrition Intervention Change Diet Order: Continue TF Nutrition Support: Nepro at 50mL/hr 250 mL free water flush q4h or per MD. Kcal 2,160 Protein (gm) 97 Fluid (mL) 872 Goal #1 TF tolerance and rate Goal #2 Meet at least 80% of kcal needs and 80-100% of protein needs. Anticipated Discharge Needs: unable to determine at this time Follow-Up By: 08/10/18 Additional Comments F/U for stable TF
[2018-08-09] MEDS: fentaNYL DRIP Premix 2,000 MCG/100 ML BAG IV SCH (13:16)
--- NOTE | 2018-08-09 17:48 | Progress Note ---
Assessment and Plan Acute hypoxemic respiratory failure, on mechanical ventilatory support. Atrial fibrillation with rapid ventricular response. Possible congestive heart failure with an acute exacerbation. 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 Elevated D-dimer. Leukocytosis. Sepsis syndrome with hypotension and fevers this morning. Chronic obstructive lung disease with an acute exacerbation. Hypernatremia Peripheral vascular disease. Mixed acidosis, respiratory and metabolic. Acute kidney injury. Lactic acidosis. Elevated BNP level of 3913. History of hypertension. History of arthritis. (Discussed possible need for tracheostomy with caregiver in room who stated that she will talk to his sister as no or kids) - continue MVS while awaiting tracheostomy - continue daily SBT's as tolerated (should do better post trach) - continue free water started for hypernatremia - continue seroquel re: agitation/delirium (increased to 200 mg bid) - increased Lantus insulin dose - continue solumedrol - VAP bundle addressed - titrate sedatives for RASS 0 to -1 - continue seroquel - PT/OT evaluation ongoing (unable to treat today also) - continue enteral nutrition as tolerated - continue supplemental oxygen to keep sats >/= 90% - aspiration precautions - continue bronchodilators with pulmonary hygiene per RT - continue therapeutic anticoagulation - continue stress ulcer prophylaxis - continue Antibiotics to complete course - continue mobility protocol for pressure ulcer prevention - continue pother care per attending / other consultants .... re-evaluate in am & prn FULL CODE STATUS CONDITION: CRITICAL The high probability of a clinically significant, sudden or life-threatening deterioration of the [respiratory, cardiovascular, renal] system(s) required my full and direct attention, intervention and personal management. The aggregate critical care time was [32] minutes without overlap. Time includes spent on; [x] Data Review and interpretation [x] Patient assessment and monitoring of vital signs [x] Documentation [x] Medication orders and management Subjective Date of service: 08/09/18 Principal diagnosis: Acute hypoxemic respiratory failure; A-fib with RVR; Possible CHF; H/O DVT Interval history: Patient is seen today for: Acute hypoxemic respiratory failure on MVS; Atrial fibrillation with RVR; Possible congestive heart failure with an acute exacerbation; History of deep venous thrombosis; Elevated D-dimer. Seen and examined at bedside; 24hour events reviewed; nursing and respiratory care staff consulted; no adverse overnight events reported to me; remains on MVS; awaiting tracheostomy; still weaning tenuously; no new issues otherwise Objective Vital Signs - 12hr 08/09/18 08/09/18 08/09/18 06:00 06:15 06:30 Temperature Pulse Rate 66 67 70 Pulse Rate [ Bilateral] Pulse Rate [ From Monitor] Respiratory 21 17 19 Rate Respiratory Rate [Bilateral ] Respiratory Rate [Head] Blood Pressure 105/54 106/56 102/54 O2 Sat by Pulse 95 95 Oximetry 08/09/18 08/09/18 08/09/18 06:45 07:00 07:15 Temperature Pulse Rate 71 73 69 Pulse Rate [ Bilateral] Pulse Rate [ From Monitor] Respiratory 21 24 20 Rate Respiratory Rate [Bilateral ] Respiratory Rate [Head] Blood Pressure 93/57 121/57 121/54 O2 Sat by Pulse 96 95 98 Oximetry 08/09/18 08/09/18 08/09/18 07:30 07:45 07:53 Temperature Pulse Rate 74 71 Pulse Rate [ 70 Bilateral] Pulse Rate [ From Monitor] Respiratory 24 27 H Rate Respiratory 28 H Rate [Bilateral ] Respiratory Rate [Head] Blood Pressure 125/60 120/56 O2 Sat by Pulse 95 93 Oximetry 08/09/18 08/09/18 08/09/18 07:56 08:00 08:10 Temperature 99.2 F Pulse Rate 73 74 Pulse Rate [ 76 Bilateral] Pulse Rate [ 73 From Monitor] Respiratory 23 Rate Respiratory 24 Rate [Bilateral ] Respiratory Rate [Head] Blood Pressure 120/56 116/58 O2 Sat by Pulse 93 93 Oximetry 08/09/18 08/09/18 08/09/18 08:16 08:30 08:46 Temperature Pulse Rate 71 70 79 Pulse Rate [ Bilateral] Pulse Rate [ From Monitor] Respiratory 31 H 12 21 Rate Respiratory Rate [Bilateral ] Respiratory Rate [Head] Blood Pressure 120/60 112/54 112/54 O2 Sat by Pulse 94 94 96 Oximetry 08/09/18 08/09/18 08/09/18 08:51 09:00 09:16 Temperature Pulse Rate 83 81 98 H Pulse Rate [ Bilateral] Pulse Rate [ From Monitor] Respiratory 22 37 H Rate Respiratory Rate [Bilateral ] Respiratory Rate [Head] Blood Pressure 138/57 112/54 150/66 O2 Sat by Pulse 89 91 Oximetry 08/09/18 08/09/18 08/09/18 09:30 09:45 10:00 Temperature Pulse Rate 94 H 84 81 Pulse Rate [ Bilateral] Pulse Rate [ From Monitor] Respiratory 20 30 H 24 Rate Respiratory Rate [Bilateral ] Respiratory 23 Rate [Head] Blood Pressure 148/67 125/57 117/55 O2 Sat by Pulse 91 90 89 Oximetry 08/09/18 08/09/18 08/09/18 10:15 10:30 10:45 Temperature Pulse Rate 77 77 77 Pulse Rate [ Bilateral] Pulse Rate [ From Monitor] Respiratory 21 20 21 Rate Respiratory Rate [Bilateral ] Respiratory Rate [Head] Blood Pressure 109/50 109/50 114/51 O2 Sat by Pulse 89 91 91 Oximetry 08/09/18 08/09/18 08/09/18 11:00 11:15 11:30 Temperature Pulse Rate 78 78 77 Pulse Rate [ Bilateral] Pulse Rate [ From Monitor] Respiratory 21 26 H 23 Rate Respiratory Rate [Bilateral ] Respiratory Rate [Head] Blood Pressure 114/56 116/53 122/57 O2 Sat by Pulse 93 93 95 Oximetry 08/09/18 08/09/18 08/09/18 11:45 12:00 12:13 Temperature 99.8 F H Pulse Rate 83 74 73 Pulse Rate [ Bilateral] Pulse Rate [ 82 From Monitor] Respiratory 24 22 Rate Respiratory Rate [Bilateral ] Respiratory Rate [Head] Blood Pressure 129/58 110/52 110/52 O2 Sat by Pulse 97 92 94 Oximetry 08/09/18 08/09/18 08/09/18 12:15 12:30 12:46 Temperature Pulse Rate 84 82 87 Pulse Rate [ Bilateral] Pulse Rate [ From Monitor] Respiratory 17 22 18 Rate Respiratory Rate [Bilateral ] Respiratory Rate [Head] Blood Pressure 107/48 106/50 112/48 O2 Sat by Pulse 91 94 94 Oximetry 08/09/18 08/09/18 08/09/18 13:00 13:16 13:30 Temperature Pulse Rate 85 80 78 Pulse Rate [ Bilateral] Pulse Rate [ From Monitor] Respiratory 22 18 21 Rate Respiratory Rate [Bilateral ] Respiratory Rate [Head] Blood Pressure 112/48 111/46 107/54 O2 Sat by Pulse 93 94 94 Oximetry 08/09/18 08/09/18 08/09/18 13:45 14:00 14:15 Temperature Pulse Rate 88 86 77 Pulse Rate [ Bilateral] Pulse Rate [ From Monitor] Respiratory 19 21 21 Rate Respiratory Rate [Bilateral ] Respiratory Rate [Head] Blood Pressure 115/51 109/49 118/54 O2 Sat by Pulse 94 93 93 Oximetry 08/09/18 08/09/18 08/09/18 14:30 14:45 15:00 Temperature Pulse Rate 72 73 71 Pulse Rate [ Bilateral] Pulse Rate [ From Monitor] Respiratory 21 20 18 Rate Respiratory Rate [Bilateral ] Respiratory Rate [Head] Blood Pressure 111/56 108/51 108/54 O2 Sat by Pulse 94 95 95 Oximetry 08/09/18 08/09/18 08/09/18 15:15 15:30 15:45 Temperature Pulse Rate 70 75 71 Pulse Rate [ Bilateral] Pulse Rate [ From Monitor] Respiratory 20 20 20 Rate Respiratory Rate [Bilateral ] Respiratory Rate [Head] Blood Pressure 111/52 114/50 113/55 O2 Sat by Pulse 94 92 95 Oximetry 08/09/18 08/09/18 08/09/18 16:00 16:15 16:30 Temperature 98.8 F Pulse Rate 73 73 78 Pulse Rate [ Bilateral] Pulse Rate [ 71 From Monitor] Respiratory 21 25 H 25 H Rate Respiratory Rate [Bilateral ] Respiratory Rate [Head] Blood Pressure 114/55 117/57 119/58 O2 Sat by Pulse 92 94 92 Oximetry 08/09/18 08/09/18 08/09/18 16:36 16:46 16:47 Temperature Pulse Rate 77 81 78 Pulse Rate [ Bilateral] Pulse Rate [ From Monitor] Respiratory 22 Rate Respiratory Rate [Bilateral ] Respiratory Rate [Head] Blood Pressure 119/58 119/57 119/57 O2 Sat by Pulse 93 94 Oximetry Constitutional: appears uncomfortable, other (elderly looking CM, normocephalic and atraumatic with normal respiratory effort) Eyes: non-icteric ENT: oropharynx moist, other (ETT 23 cm SUHAS) Neck: supple, no lymphadenopathy, no JVD, other (No thyromegaly) Effort: mildly labored Ascultation: Bilateral: diminished breath sounds, rhonchi Percussion: Bilateral: not dull Cardiovascular: irregular rhythm, other (+ systolic murmur) Gastrointestinal: hypoactive bowel sounds, soft, non-tender, non-distended, other (No palpable HSM) Integumentary: rash, other (upper extremity edema) Extremities: no cyanosis, pink and warm, pulses normal, no ischemia or petechiae Neurologic: non-focal exam (grossly), pupils equal and round, other (moves all extemities) Psychiatric: mood appropriate, affect normal CBC and BMP: 08/11/18 04:17 08/09/18 03:52 ABG, PT/INR, D-dimer: ABG POC ABG pH 7.428 (7.35-7.45) 08/09/18 05:34 POC ABG pCO2 57.5 (35-45) H 08/09/18 05:34 POC ABG pO2 58 (80-105) L 08/09/18 05:34 POC ABG HCO3 38.0 08/09/18 05:34 POC ABG Total CO2 40 08/09/18 05:34 POC ABG O2 Sat 90 08/09/18 05:34 PT/INR, D-dimer PT 13.4 Sec. (12.2-14.9) 08/07/18 15:08 INR 0.98 (0.87-1.13) 08/07/18 15:08 D-Dimer 798.17 ng/mlDDU (0-234) H 07/27/18 15:52 Abnormal lab findings: Abnormal Labs 07/27/18 07/27/18 07/27/18 12:59 12:59 12:59 WBC 15.8 H RBC Hgb Hct MCV 104 H MCH 34 H MCHC RDW 16.3 H Lymph % (Auto) [place] % (Auto) Lymph # [place] # Seg Neutrophils % Seg Neuts % (Manual) 88.0 H Lymphocytes % (Manual) 3.0 L Monocytes % (Manual) Nucleated RBC % Seg Neutrophils # Seg Neutrophils # Man 13.9 H Lymphocytes # (Manual) 0.5 L Monocytes # (Manual) PT 17.0 H INR 1.34 H APTT D-Dimer Heparin Anti-Xa Level POC ABG pH POC ABG pCO2 POC ABG pO2 Sodium Potassium Chloride Carbon Dioxide 21 L BUN 38 H Creatinine 1.6 H Glucose POC Glucose Lactic Acid Calcium Phosphorus Total Bilirubin 1.30 H C-Reactive Protein NT-Pro-B Natriuret Pep 3913 H Total Protein 6.2 L Albumin 3.6 L Urine WBC (Auto) Urine Creatinine 07/27/18 07/27/18 07/27/18 15:52 16:12 17:09 WBC RBC Hgb Hct MCV MCH MCHC RDW Lymph % (Auto) [place] % (Auto) Lymph # [place] # Seg Neutrophils % Seg Neuts % (Manual) Lymphocytes % (Manual) Monocytes % (Manual) Nucleated RBC % Seg Neutrophils # Seg Neutrophils # Man Lymphocytes # (Manual) Monocytes # (Manual) PT 16.0 H INR 1.24 H APTT D-Dimer 798.17 H Heparin Anti-Xa Level POC ABG pH POC ABG pCO2 POC ABG pO2 Sodium Potassium Chloride Carbon Dioxide BUN Creatinine Glucose POC Glucose Lactic Acid 5.00 H* Calcium Phosphorus Total Bilirubin C-Reactive Protein NT-Pro-B Natriuret Pep Total Protein Albumin Urine WBC (Auto) Urine Creatinine 07/27/18 07/27/18 07/27/18 17:59 18:07 21:31 WBC RBC Hgb Hct MCV MCH MCHC RDW Lymph % (Auto) [place] % (Auto) Lymph # [place] # Seg Neutrophils % Seg Neuts % (Manual) Lymphocytes % (Manual) Monocytes % (Manual) Nucleated RBC % Seg Neutrophils # Seg Neutrophils # Man Lymphocytes # (Manual) Monocytes # (Manual) PT INR APTT D-Dimer Heparin Anti-Xa Level POC ABG pH 7.344 L POC ABG pCO2 POC ABG pO2 36 L Sodium Potassium Chloride Carbon Dioxide BUN Creatinine Glucose POC Glucose Lactic Acid 5.20 H* 5.00 H* Calcium Phosphorus Total Bilirubin C-Reactive Protein NT-Pro-B Natriuret Pep Total Protein Albumin Urine WBC (Auto) Urine Creatinine 07/27/18 07/27/18 07/27/18 21:57 22:42 23:26 WBC RBC Hgb Hct MCV MCH MCHC RDW Lymph % (Auto) [place] % (Auto) Lymph # [place] # Seg Neutrophils % Seg Neuts % (Manual) Lymphocytes % (Manual) Monocytes % (Manual) Nucleated RBC % Seg Neutrophils # Seg Neutrophils # Man Lymphocytes # (Manual) Monocytes # (Manual) PT INR APTT D-Dimer Heparin Anti-Xa Level POC ABG pH 7.199 L POC ABG pCO2 62.0 H POC ABG pO2 Sodium Potassium Chloride Carbon Dioxide BUN Creatinine Glucose POC Glucose Lactic Acid 4.70 H* 5.00 H* Calcium Phosphorus Total Bilirubin C-Reactive Protein NT-Pro-B Natriuret Pep Total Protein Albumin Urine WBC (Auto) Urine Creatinine 07/28/18 07/28/18 07/28/18 00:45 05:40 05:58 WBC RBC Hgb Hct MCV MCH MCHC RDW Lymph % (Auto) [place] % (Auto) Lymph # [place] # Seg Neutrophils % Seg Neuts % (Manual) Lymphocytes % (Manual) Monocytes % (Manual) Nucleated RBC % Seg Neutrophils # Seg Neutrophils # Man Lymphocytes # (Manual) Monocytes # (Manual) PT INR APTT D-Dimer Heparin Anti-Xa Level 0.11 L POC ABG pH 7.186 L POC ABG pCO2 60.1 H POC ABG pO2 68 L Sodium Potassium Chloride Carbon Dioxide BUN Creatinine Glucose POC Glucose Lactic Acid 4.70 H* Calcium Phosphorus Total Bilirubin C-Reactive Protein NT-Pro-B Natriuret Pep Total Protein Albumin Urine WBC (Auto) Urine Creatinine 07/28/18 07/28/18 07/28/18 06:01 06:01 07:19 WBC 12.5 H RBC 3.51 L Hgb 11.5 L Hct MCV 104 H MCH 33 H MCHC RDW 16.6 H Lymph % (Auto) [place] % (Auto) Lymph # [place] # Seg Neutrophils % Seg Neuts % (Manual) Lymphocytes % (Manual) Monocytes % (Manual) Nucleated RBC % Seg Neutrophils # Seg Neutrophils # Man Lymphocytes # (Manual) Monocytes # (Manual) PT INR APTT D-Dimer Heparin Anti-Xa Level 0.14 L POC ABG pH POC ABG pCO2 POC ABG pO2 Sodium 135 L Potassium 5.1 H Chloride 95.0 L Carbon Dioxide 21 L BUN 54 H Creatinine 2.6 H D Glucose POC Glucose Lactic Acid Calcium Phosphorus Total Bilirubin C-Reactive Protein NT-Pro-B Natriuret Pep Total Protein Albumin Urine WBC (Auto) Urine Creatinine 07/28/18 07/28/18 07/28/18 07:19 09:20 11:06 WBC RBC Hgb Hct MCV MCH MCHC RDW Lymph % (Auto) [place] % (Auto) Lymph # [place] # Seg Neutrophils % Seg Neuts % (Manual) Lymphocytes % (Manual) Monocytes % (Manual) Nucleated RBC % Seg Neutrophils # Seg Neutrophils # Man Lymphocytes # (Manual) Monocytes # (Manual) PT INR APTT D-Dimer Heparin Anti-Xa Level POC ABG pH 7.266 L POC ABG pCO2 49.7 H POC ABG pO2 74 L Sodium Potassium Chloride Carbon Dioxide BUN Creatinine Glucose POC Glucose Lactic Acid 4.00 H* 3.90 H* Calcium Phosphorus Total Bilirubin C-Reactive Protein NT-Pro-B Natriuret Pep Total Protein Albumin Urine WBC (Auto) Urine Creatinine 07/28/18 07/28/18 07/28/18 15:06 20:45 23:36 WBC RBC Hgb Hct MCV MCH MCHC RDW Lymph % (Auto) [place] % (Auto) Lymph # [place] # Seg Neutrophils % Seg Neuts % (Manual) Lymphocytes % (Manual) Monocytes % (Manual) Nucleated RBC % Seg Neutrophils # Seg Neutrophils # Man Lymphocytes # (Manual) Monocytes # (Manual) PT INR APTT D-Dimer Heparin Anti-Xa Level 0.15 L POC ABG pH POC ABG pCO2 POC ABG pO2 Sodium 134 L Potassium 5.2 H Chloride Carbon Dioxide BUN 58 H Creatinine 2.1 H Glucose 110 H POC Glucose 125 H Lactic Acid Calcium Phosphorus Total Bilirubin C-Reactive Protein NT-Pro-B Natriuret Pep Total Protein Albumin Urine WBC (Auto) Urine Creatinine 07/29/18 07/29/18 07/29/18 01:12 04:21 04:21 WBC RBC 3.21 L Hgb 10.8 L Hct 33.0 L MCV 103 H MCH 34 H MCHC RDW 16.4 H Lymph % (Auto) [place] % (Auto) Lymph # [place] # Seg Neutrophils % Seg Neuts % (Manual) Lymphocytes % (Manual) 11.0 L Monocytes % (Manual) Nucleated RBC % Seg Neutrophils # Seg Neutrophils # Man Lymphocytes # (Manual) 1.0 L Monocytes # (Manual) PT INR APTT D-Dimer Heparin Anti-Xa Level 0.21 L POC ABG pH POC ABG pCO2 POC ABG pO2 Sodium Potassium Chloride Carbon Dioxide BUN 48 H Creatinine 1.6 H Glucose 166 H POC Glucose Lactic Acid Calcium Phosphorus Total Bilirubin C-Reactive Protein NT-Pro-B Natriuret Pep Total Protein Albumin Urine WBC (Auto) Urine Creatinine 07/29/18 07/29/18 07/29/18 05:19 08:16 09:24 WBC RBC Hgb Hct MCV MCH MCHC RDW Lymph % (Auto) [place] % (Auto) Lymph # [place] # Seg Neutrophils % Seg Neuts % (Manual) Lymphocytes % (Manual) Monocytes % (Manual) Nucleated RBC % Seg Neutrophils # Seg Neutrophils # Man Lymphocytes # (Manual) Monocytes # (Manual) PT INR APTT D-Dimer Heparin Anti-Xa Level 0.25 L POC ABG pH POC ABG pCO2 POC ABG pO2 Sodium Potassium Chloride Carbon Dioxide BUN Creatinine Glucose POC Glucose 181 H Lactic Acid Calcium Phosphorus Total Bilirubin C-Reactive Protein NT-Pro-B Natriuret Pep Total Protein Albumin Urine WBC (Auto) 29.0 H Urine Creatinine 07/29/18 07/29/18 07/29/18 09:24 10:00 15:03 WBC RBC Hgb Hct MCV MCH MCHC RDW Lymph % (Auto) [place] % (Auto) Lymph # [place] # Seg Neutrophils % Seg Neuts % (Manual) Lymphocytes % (Manual) Monocytes % (Manual) Nucleated RBC % Seg Neutrophils # Seg Neutrophils # Man Lymphocytes # (Manual) Monocytes # (Manual) PT INR APTT D-Dimer Heparin Anti-Xa Level POC ABG pH POC ABG pCO2 POC ABG pO2 Sodium Potassium Chloride Carbon Dioxide BUN Creatinine Glucose POC Glucose 195 H 167 H Lactic Acid Calcium Phosphorus Total Bilirubin C-Reactive Protein NT-Pro-B Natriuret Pep Total Protein Albumin Urine WBC (Auto) Urine Creatinine 72.3 H 07/29/18 07/29/18 07/30/18 17:51 21:32 01:38 WBC RBC Hgb Hct MCV MCH MCHC RDW Lymph % (Auto) [place] % (Auto) Lymph # [place] # Seg Neutrophils % Seg Neuts % (Manual) Lymphocytes % (Manual) Monocytes % (Manual) Nucleated RBC % Seg Neutrophils # Seg Neutrophils # Man Lymphocytes # (Manual) Monocytes # (Manual) PT INR APTT D-Dimer Heparin Anti-Xa Level POC ABG pH POC ABG pCO2 POC ABG pO2 Sodium Potassium Chloride Carbon Dioxide BUN Creatinine Glucose POC Glucose 167 H 217 H 194 H Lactic Acid Calcium Phosphorus Total Bilirubin C-Reactive Protein NT-Pro-B Natriuret Pep Total Protein Albumin Urine WBC (Auto) Urine Creatinine 07/30/18 07/30/18 07/30/18 03:21 05:13 10:18 WBC RBC Hgb Hct MCV MCH MCHC RDW Lymph % (Auto) [place] % (Auto) Lymph # [place] # Seg Neutrophils % Seg Neuts % (Manual) Lymphocytes % (Manual) Monocytes % (Manual) Nucleated RBC % Seg Neutrophils # Seg Neutrophils # Man Lymphocytes # (Manual) Monocytes # (Manual) PT INR APTT D-Dimer Heparin Anti-Xa Level POC ABG pH POC ABG pCO2 50.3 H POC ABG pO2 78 L Sodium Potassium Chloride Carbon Dioxide BUN 41 H Creatinine Glucose 202 H POC Glucose 151 H Lactic Acid Calcium Phosphorus Total Bilirubin C-Reactive Protein NT-Pro-B Natriuret Pep Total Protein Albumin Urine WBC (Auto) Urine Creatinine 07/30/18 07/30/18 07/30/18 11:29 16:28 18:12 WBC RBC Hgb Hct MCV MCH MCHC RDW Lymph % (Auto) [place] % (Auto) Lymph # [place] # Seg Neutrophils % Seg Neuts % (Manual) Lymphocytes % (Manual) Monocytes % (Manual) Nucleated RBC % Seg Neutrophils # Seg Neutrophils # Man Lymphocytes # (Manual) Monocytes # (Manual) PT INR APTT D-Dimer Heparin Anti-Xa Level POC ABG pH 7.326 L POC ABG pCO2 53.2 H POC ABG pO2 70 L Sodium Potassium Chloride Carbon Dioxide BUN Creatinine Glucose POC Glucose 247 H 212 H Lactic Acid Calcium Phosphorus Total Bilirubin C-Reactive Protein NT-Pro-B Natriuret Pep Total Protein Albumin Urine WBC (Auto) Urine Creatinine 07/30/18 07/30/18 07/31/18 20:08 21:52 01:59 WBC RBC Hgb Hct MCV MCH MCHC RDW Lymph % (Auto) [place] % (Auto) Lymph # [place] # Seg Neutrophils % Seg Neuts % (Manual) Lymphocytes % (Manual) Monocytes % (Manual) Nucleated RBC % Seg Neutrophils # Seg Neutrophils # Man Lymphocytes # (Manual) Monocytes # (Manual) PT INR APTT D-Dimer Heparin Anti-Xa Level POC ABG pH POC ABG pCO2 POC ABG pO2 Sodium Potassium Chloride Carbon Dioxide BUN Creatinine Glucose POC Glucose 205 H 215 H 242 H Lactic Acid Calcium Phosphorus Total Bilirubin C-Reactive Protein NT-Pro-B Natriuret Pep Total Protein Albumin Urine WBC (Auto) Urine Creatinine 07/31/18 07/31/18 07/31/18 03:14 03:14 04:55 WBC RBC Hgb 10.6 L Hct 33.2 L MCV MCH MCHC RDW Lymph % (Auto) [place] % (Auto) Lymph # [place] # Seg Neutrophils % Seg Neuts % (Manual) Lymphocytes % (Manual) Monocytes % (Manual) Nucleated RBC % Seg Neutrophils # Seg Neutrophils # Man Lymphocytes # (Manual) Monocytes # (Manual) PT INR APTT D-Dimer Heparin Anti-Xa Level POC ABG pH 7.331 L POC ABG pCO2 67.1 H POC ABG pO2 Sodium Potassium Chloride Carbon Dioxide BUN 36 H Creatinine 0.7 L Glucose 242 H POC Glucose Lactic Acid Calcium 10.3 H Phosphorus 2.30 L Total Bilirubin C-Reactive Protein NT-Pro-B Natriuret Pep Total Protein Albumin Urine WBC (Auto) Urine Creatinine 07/31/18 07/31/18 07/31/18 05:37 10:08 14:07 WBC RBC Hgb Hct MCV MCH MCHC RDW Lymph % (Auto) [place] % (Auto) Lymph # [place] # Seg Neutrophils % Seg Neuts % (Manual) Lymphocytes % (Manual) Monocytes % (Manual) Nucleated RBC % Seg Neutrophils # Seg Neutrophils # Man Lymphocytes # (Manual) Monocytes # (Manual) PT INR APTT D-Dimer Heparin Anti-Xa Level POC ABG pH POC ABG pCO2 POC ABG pO2 Sodium Potassium Chloride Carbon Dioxide BUN Creatinine Glucose POC Glucose 193 H 247 H 225 H Lactic Acid Calcium Phosphorus Total Bilirubin C-Reactive Protein NT-Pro-B Natriuret Pep Total Protein Albumin Urine WBC (Auto) Urine Creatinine 07/31/1818 08/01/18 18:12 21:34 02:00 WBC RBC Hgb Hct MCV MCH MCHC RDW Lymph % (Auto) [place] % (Auto) Lymph # [place] # Seg Neutrophils % Seg Neuts % (Manual) Lymphocytes % (Manual) Monocytes % (Manual) Nucleated RBC % Seg Neutrophils # Seg Neutrophils # Man Lymphocytes # (Manual) Monocytes # (Manual) PT INR APTT D-Dimer Heparin Anti-Xa Level POC ABG pH POC ABG pCO2 POC ABG pO2 Sodium Potassium Chloride Carbon Dioxide BUN Creatinine Glucose POC Glucose 197 H 204 H 239 H Lactic Acid Calcium Phosphorus Total Bilirubin C-Reactive Protein NT-Pro-B Natriuret Pep Total Protein Albumin Urine WBC (Auto) Urine Creatinine 08/01/18 08/01/18 08/01/18 04:13 04:37 05:29 WBC RBC Hgb Hct MCV MCH MCHC RDW Lymph % (Auto) [place] % (Auto) Lymph # [place] # Seg Neutrophils % Seg Neuts % (Manual) Lymphocytes % (Manual) Monocytes % (Manual) Nucleated RBC % Seg Neutrophils # Seg Neutrophils # Man Lymphocytes # (Manual) Monocytes # (Manual) PT INR APTT D-Dimer Heparin Anti-Xa Level POC ABG pH 7.296 L POC ABG pCO2 81.9 H POC ABG pO2 190 H Sodium 150 H D Potassium Chloride Carbon Dioxide 37 H D BUN 37 H Creatinine 0.6 L Glucose 223 H POC Glucose 219 H Lactic Acid Calcium Phosphorus Total Bilirubin C-Reactive Protein NT-Pro-B Natriuret Pep Total Protein Albumin Urine WBC (Auto) Urine Creatinine 08/01/18 08/01/18 08/01/18 09:28 11:00 17:36 WBC RBC Hgb Hct MCV MCH MCHC RDW Lymph % (Auto) [place] % (Auto) Lymph # [place] # Seg Neutrophils % Seg Neuts % (Manual) Lymphocytes % (Manual) Monocytes % (Manual) Nucleated RBC % Seg Neutrophils # Seg Neutrophils # Man Lymphocytes # (Manual) Monocytes # (Manual) PT INR APTT D-Dimer Heparin Anti-Xa Level POC ABG pH POC ABG pCO2 61.2 H POC ABG pO2 69 L Sodium Potassium Chloride Carbon Dioxide BUN Creatinine Glucose POC Glucose 185 H 234 H Lactic Acid Calcium Phosphorus Total Bilirubin C-Reactive Protein NT-Pro-B Natriuret Pep Total Protein Albumin Urine WBC (Auto) Urine Creatinine 08/01/18 08/02/18 08/02/18 21:54 00:08 00:44 WBC RBC Hgb Hct MCV MCH MCHC RDW Lymph % (Auto) [place] % (Auto) Lymph # [place] # Seg Neutrophils % Seg Neuts % (Manual) Lymphocytes % (Manual) Monocytes % (Manual) Nucleated RBC % Seg Neutrophils # Seg Neutrophils # Man Lymphocytes # (Manual) Monocytes # (Manual) PT INR APTT D-Dimer Heparin Anti-Xa Level 0.77 H POC ABG pH POC ABG pCO2 66.4 H POC ABG pO2 64 L Sodium Potassium Chloride Carbon Dioxide BUN Creatinine Glucose POC Glucose 242 H Lactic Acid Calcium Phosphorus Total Bilirubin C-Reactive Protein NT-Pro-B Natriuret Pep Total Protein Albumin Urine WBC (Auto) Urine Creatinine 08/02/18 08/02/18 08/02/18 02:46 04:45 04:45 WBC RBC Hgb 10.7 L Hct 33.7 L MCV MCH MCHC RDW Lymph % (Auto) [place] % (Auto) Lymph # [place] # Seg Neutrophils % Seg Neuts % (Manual) Lymphocytes % (Manual) Monocytes % (Manual) Nucleated RBC % Seg Neutrophils # Seg Neutrophils # Man Lymphocytes # (Manual) Monocytes # (Manual) PT INR APTT D-Dimer Heparin Anti-Xa Level POC ABG pH POC ABG pCO2 POC ABG pO2 Sodium 152 H Potassium Chloride 108.1 H Carbon Dioxide 39 H BUN 38 H Creatinine 0.6 L Glucose 226 H POC Glucose 206 H Lactic Acid Calcium Phosphorus Total Bilirubin C-Reactive Protein NT-Pro-B Natriuret Pep Total Protein Albumin Urine WBC (Auto) Urine Creatinine 08/02/18 08/02/18 08/02/18 05:31 09:46 14:23 WBC RBC Hgb Hct MCV MCH MCHC RDW Lymph % (Auto) [place] % (Auto) Lymph # [place] # Seg Neutrophils % Seg Neuts % (Manual) Lymphocytes % (Manual) Monocytes % (Manual) Nucleated RBC % Seg Neutrophils # Seg Neutrophils # Man Lymphocytes # (Manual) Monocytes # (Manual) PT INR APTT D-Dimer Heparin Anti-Xa Level 0.91 H POC ABG pH POC ABG pCO2 POC ABG pO2 Sodium Potassium Chloride Carbon Dioxide BUN Creatinine Glucose POC Glucose 214 H 210 H Lactic Acid Calcium Phosphorus Total Bilirubin C-Reactive Protein NT-Pro-B Natriuret Pep Total Protein Albumin Urine WBC (Auto) Urine Creatinine 08/02/18 08/02/18 08/02/18 15:46 17:56 21:50 WBC RBC Hgb Hct MCV MCH MCHC RDW Lymph % (Auto) [place] % (Auto) Lymph # [place] # Seg Neutrophils % Seg Neuts % (Manual) Lymphocytes % (Manual) Monocytes % (Manual) Nucleated RBC % Seg Neutrophils # Seg Neutrophils # Man Lymphocytes # (Manual) Monocytes # (Manual) PT INR APTT D-Dimer Heparin Anti-Xa Level 0.99 H POC ABG pH POC ABG pCO2 POC ABG pO2 Sodium Potassium Chloride Carbon Dioxide BUN Creatinine Glucose POC Glucose 252 H 222 H Lactic Acid Calcium Phosphorus Total Bilirubin C-Reactive Protein NT-Pro-B Natriuret Pep Total Protein Albumin Urine WBC (Auto) Urine Creatinine 08/03/18 08/03/18 08/03/18 02:18 05:21 05:25 WBC RBC Hgb Hct MCV MCH MCHC RDW Lymph % (Auto) [place] % (Auto) Lymph # [place] # Seg Neutrophils % Seg Neuts % (Manual) Lymphocytes % (Manual) Monocytes % (Manual) Nucleated RBC % Seg Neutrophils # Seg Neutrophils # Man Lymphocytes # (Manual) Monocytes # (Manual) PT INR APTT D-Dimer Heparin Anti-Xa Level POC ABG pH POC ABG pCO2 POC ABG pO2 Sodium 151 H Potassium Chloride 107.3 H Carbon Dioxide 37 H BUN 42 H Creatinine 0.6 L Glucose 263 H POC Glucose 241 H 241 H Lactic Acid Calcium Phosphorus Total Bilirubin C-Reactive Protein NT-Pro-B Natriuret Pep Total Protein Albumin Urine WBC (Auto) Urine Creatinine 12/19/18 12/19/18 12/19/18 09:11 12:20 14:33 WBC RBC Hgb Hct MCV MCH MCHC RDW Lymph % (Auto) [place] % (Auto) Lymph # [place] # Seg Neutrophils % Seg Neuts % (Manual) Lymphocytes % (Manual) Monocytes % (Manual) Nucleated RBC % Seg Neutrophils # Seg Neutrophils # Man Lymphocytes # (Manual) Monocytes # (Manual) PT INR APTT D-Dimer Heparin Anti-Xa Level POC ABG pH POC ABG pCO2 POC ABG pO2 Sodium Potassium Chloride Carbon Dioxide BUN Creatinine Glucose POC Glucose 272 H 234 H 247 H Lactic Acid Calcium Phosphorus Total Bilirubin C-Reactive Protein NT-Pro-B Natriuret Pep Total Protein Albumin Urine WBC (Auto) Urine Creatinine 08/03/18 08/03/18 08/04/18 16:48 21:21 01:56 WBC RBC Hgb Hct MCV MCH MCHC RDW Lymph % (Auto) [place] % (Auto) Lymph # [place] # Seg Neutrophils % Seg Neuts % (Manual) Lymphocytes % (Manual) Monocytes % (Manual) Nucleated RBC % Seg Neutrophils # Seg Neutrophils # Man Lymphocytes # (Manual) Monocytes # (Manual) PT INR APTT D-Dimer Heparin Anti-Xa Level POC ABG pH POC ABG pCO2 POC ABG pO2 Sodium Potassium Chloride Carbon Dioxide BUN Creatinine Glucose POC Glucose 180 H 189 H Lactic Acid Calcium Phosphorus Total Bilirubin C-Reactive Protein 2.30 H NT-Pro-B Natriuret Pep Total Protein Albumin Urine WBC (Auto) Urine Creatinine 08/04/18 08/04/18 08/04/18 01:58 05:05 05:05 WBC 25.5 H RBC 3.31 L Hgb 10.8 L Hct 34.1 L MCV 103 H MCH 33 H MCHC RDW 16.0 H Lymph % (Auto) [place] % (Auto) Lymph # [place] # Seg Neutrophils % Seg Neuts % (Manual) Lymphocytes % (Manual) 8.0 L Monocytes % (Manual) Nucleated RBC % 2.0 H Seg Neutrophils # Seg Neutrophils # Man 16.3 H Lymphocytes # (Manual) Monocytes # (Manual) 1.0 H PT INR APTT D-Dimer Heparin Anti-Xa Level 0.79 H POC ABG pH POC ABG pCO2 POC ABG pO2 Sodium 148 H Potassium Chloride Carbon Dioxide 36 H BUN 35 H Creatinine 0.6 L Glucose 160 H POC Glucose Lactic Acid Calcium Phosphorus Total Bilirubin C-Reactive Protein NT-Pro-B Natriuret Pep Total Protein Albumin Urine WBC (Auto) Urine Creatinine 08/04/18 08/04/18 08/04/18 05:24 05:33 08:46 WBC RBC Hgb Hct MCV MCH MCHC RDW Lymph % (Auto) [place] % (Auto) Lymph # [place] # Seg Neutrophils % Seg Neuts % (Manual) Lymphocytes % (Manual) Monocytes % (Manual) Nucleated RBC % Seg Neutrophils # Seg Neutrophils # Man Lymphocytes # (Manual) Monocytes # (Manual) PT INR APTT D-Dimer Heparin Anti-Xa Level 0.76 H POC ABG pH POC ABG pCO2 65.7 H POC ABG pO2 63 L Sodium Potassium Chloride Carbon Dioxide BUN Creatinine Glucose POC Glucose 159 H Lactic Acid Calcium Phosphorus Total Bilirubin C-Reactive Protein NT-Pro-B Natriuret Pep Total Protein Albumin Urine WBC (Auto) Urine Creatinine 08/04/18 08/04/18 08/04/18 09:12 15:38 18:20 WBC RBC Hgb Hct MCV MCH MCHC RDW Lymph % (Auto) [place] % (Auto) Lymph # [place] # Seg Neutrophils % Seg Neuts % (Manual) Lymphocytes % (Manual) Monocytes % (Manual) Nucleated RBC % Seg Neutrophils # Seg Neutrophils # Man Lymphocytes # (Manual) Monocytes # (Manual) PT INR APTT D-Dimer Heparin Anti-Xa Level POC ABG pH POC ABG pCO2 POC ABG pO2 Sodium Potassium Chloride Carbon Dioxide BUN Creatinine Glucose POC Glucose 140 H 267 H 252 H Lactic Acid Calcium Phosphorus Total Bilirubin C-Reactive Protein NT-Pro-B Natriuret Pep Total Protein Albumin Urine WBC (Auto) Urine Creatinine 08/04/18 08/05/18 08/05/18 21:17 02:51 04:36 WBC RBC Hgb Hct MCV MCH MCHC RDW Lymph % (Auto) [place] % (Auto) Lymph # [place] # Seg Neutrophils % Seg Neuts % (Manual) Lymphocytes % (Manual) Monocytes % (Manual) Nucleated RBC % Seg Neutrophils # Seg Neutrophils # Man Lymphocytes # (Manual) Monocytes # (Manual) PT INR APTT D-Dimer Heparin Anti-Xa Level POC ABG pH POC ABG pCO2 POC ABG pO2 Sodium Potassium Chloride Carbon Dioxide BUN Creatinine Glucose POC Glucose 181 H 240 H 255 H Lactic Acid Calcium Phosphorus Total Bilirubin C-Reactive Protein NT-Pro-B Natriuret Pep Total Protein Albumin Urine WBC (Auto) Urine Creatinine 08/05/18 08/05/18 08/05/18 04:55 10:21 12:39 WBC 21.8 H RBC 3.18 L Hgb 10.3 L Hct 32.6 L MCV 103 H MCH 33 H MCHC RDW 16.3 H Lymph % (Auto) [place] % (Auto) Lymph # [place] # Seg Neutrophils % Seg Neuts % (Manual) 88.0 H Lymphocytes % (Manual) 4.0 L Monocytes % (Manual) Nucleated RBC % Seg Neutrophils # Seg Neutrophils # Man 19.2 H Lymphocytes # (Manual) 0.9 L Monocytes # (Manual) PT INR APTT D-Dimer Heparin Anti-Xa Level POC ABG pH 7.506 H POC ABG pCO2 56.0 H POC ABG pO2 63 L Sodium Potassium Chloride Carbon Dioxide BUN Creatinine Glucose POC Glucose 227 H Lactic Acid Calcium Phosphorus Total Bilirubin C-Reactive Protein NT-Pro-B Natriuret Pep Total Protein Albumin Urine WBC (Auto) Urine Creatinine 08/05/18 08/05/18 08/05/18 12:39 14:10 17:30 WBC RBC Hgb Hct MCV MCH MCHC RDW Lymph % (Auto) [place] % (Auto) Lymph # [place] # Seg Neutrophils % Seg Neuts % (Manual) Lymphocytes % (Manual) Monocytes % (Manual) Nucleated RBC % Seg Neutrophils # Seg Neutrophils # Man Lymphocytes # (Manual) Monocytes # (Manual) PT INR APTT D-Dimer Heparin Anti-Xa Level < 0.10 L POC ABG pH POC ABG pCO2 POC ABG pO2 Sodium Potassium Chloride 96.8 L Carbon Dioxide 38 H BUN 36 H Creatinine 0.6 L Glucose 218 H POC Glucose 221 H Lactic Acid Calcium Phosphorus Total Bilirubin C-Reactive Protein NT-Pro-B Natriuret Pep Total Protein Albumin Urine WBC (Auto) Urine Creatinine 08/05/18 08/05/18 08/06/18 18:32 23:32 02:26 WBC RBC Hgb Hct MCV MCH MCHC RDW Lymph % (Auto) [place] % (Auto) Lymph # [place] # Seg Neutrophils % Seg Neuts % (Manual) Lymphocytes % (Manual) Monocytes % (Manual) Nucleated RBC % Seg Neutrophils # Seg Neutrophils # Man Lymphocytes # (Manual) Monocytes # (Manual) PT INR APTT D-Dimer Heparin Anti-Xa Level POC ABG pH POC ABG pCO2 POC ABG pO2 Sodium Potassium Chloride Carbon Dioxide BUN Creatinine Glucose POC Glucose 253 H 215 H 227 H Lactic Acid Calcium Phosphorus Total Bilirubin C-Reactive Protein NT-Pro-B Natriuret Pep Total Protein Albumin Urine WBC (Auto) Urine Creatinine 08/06/18 08/06/18 08/06/18 05:17 05:17 05:32 WBC 18.9 H RBC 3.06 L Hgb 10.2 L Hct 31.3 L MCV 102 H MCH 33 H MCHC RDW 16.1 H Lymph % (Auto) [place] % (Auto) Lymph # [place] # Seg Neutrophils % Seg Neuts % (Manual) Lymphocytes % (Manual) Monocytes % (Manual) Nucleated RBC % Seg Neutrophils # Seg Neutrophils # Man Lymphocytes # (Manual) Monocytes # (Manual) PT INR APTT D-Dimer Heparin Anti-Xa Level POC ABG pH 7.468 H POC ABG pCO2 59.5 H POC ABG pO2 64 L Sodium Potassium Chloride Carbon Dioxide 37 H BUN 37 H Creatinine 0.5 L Glucose 226 H POC Glucose Lactic Acid Calcium Phosphorus Total Bilirubin C-Reactive Protein NT-Pro-B Natriuret Pep Total Protein Albumin Urine WBC (Auto) Urine Creatinine 08/06/18 08/06/18 08/06/18 10:11 15:03 17:48 WBC RBC Hgb Hct MCV MCH MCHC RDW Lymph % (Auto) [place] % (Auto) Lymph # [place] # Seg Neutrophils % Seg Neuts % (Manual) Lymphocytes % (Manual) Monocytes % (Manual) Nucleated RBC % Seg Neutrophils # Seg Neutrophils # Man Lymphocytes # (Manual) Monocytes # (Manual) PT INR APTT D-Dimer Heparin Anti-Xa Level POC ABG pH POC ABG pCO2 POC ABG pO2 Sodium Potassium Chloride Carbon Dioxide BUN Creatinine Glucose POC Glucose 207 H 229 H 188 H Lactic Acid Calcium Phosphorus Total Bilirubin C-Reactive Protein NT-Pro-B Natriuret Pep Total Protein Albumin Urine WBC (Auto) Urine Creatinine 08/06/18 08/07/18 08/07/18 22:53 01:55 05:30 WBC RBC Hgb Hct MCV MCH MCHC RDW Lymph % (Auto) [place] % (Auto) Lymph # [place] # Seg Neutrophils % Seg Neuts % (Manual) Lymphocytes % (Manual) Monocytes % (Manual) Nucleated RBC % Seg Neutrophils # Seg Neutrophils # Man Lymphocytes # (Manual) Monocytes # (Manual) PT INR APTT D-Dimer Heparin Anti-Xa Level POC ABG pH POC ABG pCO2 69.6 H POC ABG pO2 64 L Sodium Potassium Chloride Carbon Dioxide BUN Creatinine Glucose POC Glucose 146 H 143 H Lactic Acid Calcium Phosphorus Total Bilirubin C-Reactive Protein NT-Pro-B Natriuret Pep Total Protein Albumin Urine WBC (Auto) Urine Creatinine 08/07/18 08/07/18 08/07/18 09:59 14:16 15:08 WBC RBC Hgb 10.3 L Hct 32.2 L MCV MCH MCHC RDW Lymph % (Auto) [place] % (Auto) Lymph # [place] # Seg Neutrophils % Seg Neuts % (Manual) Lymphocytes % (Manual) Monocytes % (Manual) Nucleated RBC % Seg Neutrophils # Seg Neutrophils # Man Lymphocytes # (Manual) Monocytes # (Manual) PT INR APTT D-Dimer Heparin Anti-Xa Level POC ABG pH POC ABG pCO2 POC ABG pO2 Sodium Potassium Chloride Carbon Dioxide BUN Creatinine Glucose POC Glucose 188 H 223 H Lactic Acid Calcium Phosphorus Total Bilirubin C-Reactive Protein NT-Pro-B Natriuret Pep Total Protein Albumin Urine WBC (Auto) Urine Creatinine 08/07/18 08/07/18 08/07/18 15:08 17:39 22:04 WBC RBC Hgb Hct MCV MCH MCHC RDW Lymph % (Auto) [place] % (Auto) Lymph # [place] # Seg Neutrophils % Seg Neuts % (Manual) Lymphocytes % (Manual) Monocytes % (Manual) Nucleated RBC % Seg Neutrophils # Seg Neutrophils # Man Lymphocytes # (Manual) Monocytes # (Manual) PT INR APTT 23.2 L D-Dimer Heparin Anti-Xa Level POC ABG pH POC ABG pCO2 POC ABG pO2 Sodium Potassium Chloride Carbon Dioxide BUN Creatinine Glucose POC Glucose 208 H 163 H Lactic Acid Calcium Phosphorus Total Bilirubin C-Reactive Protein NT-Pro-B Natriuret Pep Total Protein Albumin Urine WBC (Auto) Urine Creatinine 08/07/18 08/08/18 08/08/18 22:30 01:57 02:09 WBC 14.6 H RBC 2.88 L Hgb 9.5 L Hct 29.9 L MCV 104 H MCH 33 H MCHC RDW 16.8 H Lymph % (Auto) [place] % (Auto) Lymph # [place] # Seg Neutrophils % Seg Neuts % (Manual) 73.0 H Lymphocytes % (Manual) 9.0 L Monocytes % (Manual) 10.0 H Nucleated RBC % Seg Neutrophils # Seg Neutrophils # Man 10.7 H Lymphocytes # (Manual) Monocytes # (Manual) 1.5 H PT INR APTT D-Dimer Heparin Anti-Xa Level 0.25 L POC ABG pH POC ABG pCO2 POC ABG pO2 Sodium Potassium Chloride Carbon Dioxide BUN Creatinine Glucose POC Glucose 120 H Lactic Acid Calcium Phosphorus Total Bilirubin C-Reactive Protein NT-Pro-B Natriuret Pep Total Protein Albumin Urine WBC (Auto) Urine Creatinine 08/08/18 08/08/18 08/08/18 02:09 04:58 05:19 WBC RBC Hgb Hct MCV MCH MCHC RDW Lymph % (Auto) [place] % (Auto) Lymph # [place] # Seg Neutrophils % Seg Neuts % (Manual) Lymphocytes % (Manual) Monocytes % (Manual) Nucleated RBC % Seg Neutrophils # Seg Neutrophils # Man Lymphocytes # (Manual) Monocytes # (Manual) PT INR APTT D-Dimer Heparin Anti-Xa Level POC ABG pH 7.461 H POC ABG pCO2 57.3 H POC ABG pO2 62 L Sodium Potassium Chloride Carbon Dioxide 39 H BUN 29 H Creatinine 0.5 L Glucose 124 H POC Glucose 139 H Lactic Acid Calcium Phosphorus Total Bilirubin C-Reactive Protein NT-Pro-B Natriuret Pep Total Protein Albumin Urine WBC (Auto) Urine Creatinine 08/08/18 08/08/18 08/08/18 10:22 14:52 16:12 WBC RBC Hgb Hct MCV MCH MCHC RDW Lymph % (Auto) [place] % (Auto) Lymph # [place] # Seg Neutrophils % Seg Neuts % (Manual) Lymphocytes % (Manual) Monocytes % (Manual) Nucleated RBC % Seg Neutrophils # Seg Neutrophils # Man Lymphocytes # (Manual) Monocytes # (Manual) PT INR APTT D-Dimer Heparin Anti-Xa Level POC ABG pH POC ABG pCO2 POC ABG pO2 Sodium Potassium Chloride Carbon Dioxide BUN Creatinine Glucose POC Glucose 169 H 149 H 136 H Lactic Acid Calcium Phosphorus Total Bilirubin C-Reactive Protein NT-Pro-B Natriuret Pep Total Protein Albumin Urine WBC (Auto) Urine Creatinine 08/09/18 08/09/18 08/09/18 02:26 03:52 03:52 WBC 15.9 H RBC 2.87 L Hgb 9.6 L Hct 30.7 L MCV 107 H MCH 34 H MCHC 31 L RDW 17.8 H Lymph % (Auto) 3.9 L [place] % (Auto) 8.1 H Lymph # 0.6 L [place] # 1.3 H Seg Neutrophils % 87.1 H Seg Neuts % (Manual) Lymphocytes % (Manual) Monocytes % (Manual) Nucleated RBC % Seg Neutrophils # 13.9 H Seg Neutrophils # Man Lymphocytes # (Manual) Monocytes # (Manual) PT INR APTT D-Dimer Heparin Anti-Xa Level 0.25 L POC ABG pH POC ABG pCO2 POC ABG pO2 Sodium Potassium Chloride Carbon Dioxide BUN Creatinine Glucose POC Glucose 126 H Lactic Acid Calcium Phosphorus Total Bilirubin C-Reactive Protein NT-Pro-B Natriuret Pep Total Protein Albumin Urine WBC (Auto) Urine Creatinine 08/09/18 08/09/18 08/09/18 03:52 05:34 06:48 WBC RBC Hgb Hct MCV MCH MCHC RDW Lymph % (Auto) [place] % (Auto) Lymph # [place] # Seg Neutrophils % Seg Neuts % (Manual) Lymphocytes % (Manual) Monocytes % (Manual) Nucleated RBC % Seg Neutrophils # Seg Neutrophils # Man Lymphocytes # (Manual) Monocytes # (Manual) PT INR APTT D-Dimer Heparin Anti-Xa Level POC ABG pH POC ABG pCO2 57.5 H POC ABG pO2 58 L Sodium Potassium Chloride Carbon Dioxide 39 H BUN 26 H Creatinine 0.5 L Glucose 128 H POC Glucose 171 H Lactic Acid Calcium Phosphorus Total Bilirubin C-Reactive Protein NT-Pro-B Natriuret Pep Total Protein Albumin Urine WBC (Auto) Urine Creatinine 08/09/18 08/09/18 08/09/18 09:28 09:36 13:44 WBC RBC Hgb Hct MCV MCH MCHC RDW Lymph % (Auto) [place] % (Auto) Lymph # [place] # Seg Neutrophils % Seg Neuts % (Manual) Lymphocytes % (Manual) Monocytes % (Manual) Nucleated RBC % Seg Neutrophils # Seg Neutrophils # Man Lymphocytes # (Manual) Monocytes # (Manual) PT INR APTT D-Dimer Heparin Anti-Xa Level 0.26 L POC ABG pH POC ABG pCO2 POC ABG pO2 Sodium Potassium Chloride Carbon Dioxide BUN Creatinine Glucose POC Glucose 183 H 184 H Lactic Acid Calcium Phosphorus Total Bilirubin C-Reactive Protein NT-Pro-B Natriuret Pep Total Protein Albumin Urine WBC (Auto) Urine Creatinine Allied health notes reviewed: PT
[2018-08-09] MEDS: LANTUS SUB-Q SCH (23:39)
[2018-08-10] MEDS: CARDIZEM PO SCH ×6 (01:24→22:36)
[2018-08-10] MEDS: DIPRIVAN 10 MG/ML 1,000 MG/100 ML BOTTLE IV SCH ×2 (01:25→14:00)
[2018-08-10] MEDS: HumaLOG SUB-Q SCH ×6 (04:04→22:30)
[2018-08-10] MEDS ORDERED: D50W (25GM) Syringe IV ONE (05:23)
[2018-08-10] MEDS ORDERED: D50W (25GM) Syringe IV PRN (05:31)
[2018-08-10] MEDS: BROVANA NEBU IH SCH ×2 (08:18→21:02)
[2018-08-10] MEDS: PULMICORT IH SCH ×2 (08:18→21:02)
[2018-08-10] MEDS ORDERED: ZEMURON IV ONE (10:19)
[2018-08-10] MEDS ORDERED: NEO SYNEPHRINE/NS Syringe(OR USE) IV ONE (10:20)
[2018-08-10] MEDS ORDERED: WATER FOR IRRIG STERILE IR ONE (10:33)
[2018-08-10] MEDS ORDERED: NACL 0.9% 1000 ML 1,000 ML ONE (10:34)
[2018-08-10] MEDS ORDERED: SUBLIMAZE ONE (10:45)
[2018-08-10] MEDS: PRAVACHOL PO SCH (10:46)
[2018-08-10] MEDS: PEPCID PO SCH ×2 (10:46→21:15)
[2018-08-10] MEDS: CORDARONE PO SCH ×2 (10:46→21:15)
[2018-08-10] MEDS: VITAMIN B-12 PO SCH (10:46)
--- NOTE | 2018-08-10 10:56 | Progress Note ---
Assessment and Plan Currently stable cardiac status. Pt for trach and PEG today. Heparin gtt held. The patient has been seen in conjunction with Dr. JULIA Kearney who agrees with the assessment and plan of care. - Patient Problems (1) Atrial fibrillation with RVR Current Visit: Yes Status: Acute (2) Acute respiratory failure Current Visit: Yes Status: Acute Qualifiers: Respiratory failure complication: hypoxia Qualified Code(s): J96.01 - Acute respiratory failure with hypoxia (3) COPD (chronic obstructive pulmonary disease) Current Visit: Yes Status: Chronic (4) Pneumonia Current Visit: Yes Status: Acute (5) Nonobstructive atherosclerosis of coronary artery Current Visit: Yes Status: Chronic (6) Hypertension Current Visit: Yes Status: Chronic Qualifiers: Hypertension type: essential hypertension Qualified Code(s): I10 - Essential (primary) hypertension (7) Hyperlipemia Current Visit: Yes Status: Chronic Qualifiers: Hyperlipidemia type: Mixed hyperlipidemia (8) Peripheral vascular disease Current Visit: Yes Status: Chronic (9) CARLEE (acute kidney injury) Current Visit: Yes Status: Resolved (10) Lactic acid acidosis Current Visit: Yes Status: Resolved (11) Hematuria Current Visit: Yes Status: Resolved Subjective Date of service: 08/10/18 Principal diagnosis: Acute hypoxemic respiratory failure; A-fib with RVR; Possible CHF; H/O DVT Interval history: pt remains intubated, alert, in SR with fre PACs on telemetry. Objective Last Vital Signs Temp 98.9 F 08/10/18 03:43 Pulse 78 08/10/18 10:30 Resp 23 08/10/18 10:30 BP 119/51 08/10/18 10:30 Pulse Ox 90 08/10/18 10:30 - Physical Examination General: Other (intubated, sedated) HEENT: Positive: EOMI, Normocephaly, Mucus Membranes Moist Neck: Positive: neck supple, trachea midline. Negative: JVD/HJR Cardiac: Positive: Reg Rate and Rhythm, S1/S2 Lungs: Positive: Decreased Breath Sounds, Ventilated Respirations Neuro: Positive: Other (intubated, sedated) Abdomen: Positive: Soft, Active Bowel Sounds Skin: Positive: Clear. Negative: Rash, Wound Musculoskeletal: No Fluid Collection, Normal Range of Motion Extremities: Present: upper extr. pulses, lower extr. pulses. Absent: edema - Imaging and Cardiology EKG: report reviewed, image reviewed Echo: report reviewed ( 07/27/2018 EF 60-65%, asymmetric septal hypertrophy, mild TR. 05/2017 showed EF 55-60%, grade 1 diastolic dysfunction, mild TR, RVSP 22mmHg. 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 Treat medically. ) - Telemetry EKG Rhythm: Sinus Rhythm - Allied health notes Allied health notes reviewed: PT
--- NOTE | 2018-08-10 11:02 | Progress Note ---
Assessment and Plan Acute hypoxemic respiratory failure, on mechanical ventilatory support. Atrial fibrillation with rapid ventricular response, now sinus. 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 Elevated D-dimer. Leukocytosis Hematuria, resolved. Sepsis Chronic obstructive lung disease-acute exacerbation. Hypertension. Peripheral vascular disease. Mixed acidosis, respiratory and metabolic. Acute kidney injury. Lactic acidosis. Elevated BNP level of 3913. - Daily SAT and SBT as tolerated - VAP bundle addressed - titrate sedation for RASS 0 to -1 -Avoid delirium - continue enteric nutrition as tolerated - continue supplemental oxygen to keep sats > 90% - aspiration precautions - continue bronchodilators with pulmonary hygiene per RT -Therapeutic anticoagulation, resume heparin infusion and monitor for bleeding -Stress ulcer prophylaxis -Antibiotics to complete course -Mobility for pressure ulcer prevention Trachesotomy and PEG today Plavix currently on hold, will resume 24 hhours post tracheostomy FULL CODE CONDITION: CRITICAL PROGNOSIS: GUARDED The high probability of a clinically significant, sudden or life-threatening deterioration of the [respiratory, cardiovascular, renal] system(s) required my full and direct attention, intervention and personal management. The aggregate critical care time was [35] minutes without overlap. Time includes spent on; [x] Data Review and interpretation [x] Patient assessment and monitoring of vital signs [x] Documentation [x] Medication orders and management Subjective Date of service: 08/10/18 Principal diagnosis: Acute hypoxemic respiratory failure; A-fib with RVR; Possible CHF; H/O DVT Interval history: Patient is seen today for: Acute hypoxemic respiratory failure on MVS; Atrial fibrillation with RVR; Possible congestive heart failure with an acute exacerbation; History of deep venous thrombosis; Elevated D-dimer. Seen and examined at bedside; 24hour events reviewed; vitals, labs, medications, chart notes reviewed; nursing and respiratory care staff consulted; no adverse overnight events reported to me; remains on MVS;currently in sinus rhythm; no emesis or overt aspiration and tolerating tube feeds; hematuria s/p zuniga placement in OR by urology. Currently has clear urine with zuniga in place. More awake and alert, participating in PT. For trachesotomy and PEG placement today Objective Vital Signs - 12hr 08/09/18 08/09/18 08/09/18 23:15 23:18 23:30 Temperature Pulse Rate 74 75 74 Pulse Rate [ Bilateral] Pulse Rate [ From Monitor] Respiratory 21 21 22 Rate Respiratory Rate [Bilateral ] Blood Pressure 122/57 122/57 111/52 O2 Sat by Pulse 96 95 97 Oximetry 08/09/18 08/09/18 08/10/18 23:40 23:45 00:00 Temperature 98.1 F Pulse Rate 75 79 Pulse Rate [ Bilateral] Pulse Rate [ 71 From Monitor] Respiratory 22 24 Rate Respiratory Rate [Bilateral ] Blood Pressure 111/52 113/53 111/52 O2 Sat by Pulse 96 95 Oximetry 08/10/18 08/10/18 08/10/18 00:16 00:30 00:31 Temperature Pulse Rate 83 84 82 Pulse Rate [ Bilateral] Pulse Rate [ From Monitor] Respiratory 28 H 31 H Rate Respiratory Rate [Bilateral ] Blood Pressure 111/52 126/60 126/60 O2 Sat by Pulse 90 96 94 Oximetry 08/10/18 08/10/18 08/10/18 00:46 01:00 01:16 Temperature Pulse Rate 78 79 77 Pulse Rate [ Bilateral] Pulse Rate [ From Monitor] Respiratory 24 13 22 Rate Respiratory Rate [Bilateral ] Blood Pressure 126/60 107/50 107/50 O2 Sat by Pulse 93 100 88 Oximetry 08/10/18 08/10/18 08/10/18 01:30 02:00 02:30 Temperature Pulse Rate 79 77 77 Pulse Rate [ Bilateral] Pulse Rate [ From Monitor] Respiratory 25 H 23 16 Rate Respiratory Rate [Bilateral ] Blood Pressure 101/50 102/47 95/46 O2 Sat by Pulse 88 94 Oximetry 08/10/18 08/10/18 08/10/18 03:00 03:30 03:43 Temperature 98.9 F Pulse Rate 77 75 Pulse Rate [ Bilateral] Pulse Rate [ From Monitor] Respiratory 20 21 Rate Respiratory Rate [Bilateral ] Blood Pressure 97/50 94/48 O2 Sat by Pulse 92 92 Oximetry 08/10/18 08/10/18 08/10/18 04:00 04:30 04:45 Temperature Pulse Rate 76 74 76 Pulse Rate [ Bilateral] Pulse Rate [ 71 From Monitor] Respiratory 18 19 Rate Respiratory Rate [Bilateral ] Blood Pressure 95/45 95/45 95/45 O2 Sat by Pulse 92 92 93 Oximetry 08/10/18 08/10/18 08/10/18 05:00 05:30 06:00 Temperature Pulse Rate 76 74 78 Pulse Rate [ Bilateral] Pulse Rate [ From Monitor] Respiratory 21 17 20 Rate Respiratory Rate [Bilateral ] Blood Pressure 97/46 104/48 94/45 O2 Sat by Pulse 92 95 92 Oximetry 08/10/18 08/10/18 08/10/18 06:30 07:00 07:30 Temperature Pulse Rate 76 76 76 Pulse Rate [ Bilateral] Pulse Rate [ From Monitor] Respiratory 20 18 20 Rate Respiratory Rate [Bilateral ] Blood Pressure 100/49 95/45 92/45 O2 Sat by Pulse 92 92 93 Oximetry 08/10/18 08/10/18 08/10/18 08:00 08:18 08:19 Temperature 100.1 F H Pulse Rate 74 72 Pulse Rate [ 74 Bilateral] Pulse Rate [ From Monitor] Respiratory 20 Rate Respiratory 18 Rate [Bilateral ] Blood Pressure 93/48 93/48 O2 Sat by Pulse 94 96 Oximetry 08/10/18 08/10/18 08/10/18 08:30 08:35 09:00 Temperature Pulse Rate 75 74 Pulse Rate [ 80 Bilateral] Pulse Rate [ From Monitor] Respiratory 16 22 Rate Respiratory 18 Rate [Bilateral ] Blood Pressure 92/47 112/47 O2 Sat by Pulse 97 93 Oximetry 08/10/18 08/10/18 08/10/18 09:30 10:00 10:30 Temperature Pulse Rate 77 84 78 Pulse Rate [ Bilateral] Pulse Rate [ From Monitor] Respiratory 20 25 H 23 Rate Respiratory Rate [Bilateral ] Blood Pressure 115/52 105/52 119/51 O2 Sat by Pulse 92 94 90 Oximetry Constitutional: appears uncomfortable, other (elderly looking CM, normocephalic and atraumatic with normal respiratory effort) Eyes: non-icteric ENT: oropharynx moist, other (ETT 23 cm SUHAS) Neck: supple, no lymphadenopathy, no JVD, other (No thyromegaly) Effort: mildly labored Ascultation: Bilateral: diminished breath sounds, rhonchi Percussion: Bilateral: not dull Cardiovascular: irregular rhythm, other (+ systolic murmur) Gastrointestinal: hypoactive bowel sounds, soft, non-tender, non-distended, other (No palpable HSM) Integumentary: rash, other (upper extremity edema) Extremities: no cyanosis, pink and warm, pulses normal, no ischemia or petechiae Neurologic: non-focal exam (grossly), pupils equal and round, other (moves all extemities) Psychiatric: mood appropriate, affect normal CBC and BMP: 08/11/18 Unknown 08/11/18 Unknown ABG, PT/INR, D-dimer: ABG POC ABG pH 7.416 (7.35-7.45) 08/10/18 04:49 POC ABG pCO2 59.9 (35-45) H 08/10/18 04:49 POC ABG pO2 59 (80-105) L 08/10/18 04:49 POC ABG HCO3 38.5 08/10/18 04:49 POC ABG Total CO2 40 08/10/18 04:49 POC ABG O2 Sat 90 08/10/18 04:49 PT/INR, D-dimer PT 13.4 Sec. (12.2-14.9) 08/07/18 15:08 INR 0.98 (0.87-1.13) 08/07/18 15:08 D-Dimer 798.17 ng/mlDDU (0-234) H 07/27/18 15:52 Abnormal lab findings: Abnormal Labs 07/27/18 07/27/18 07/27/18 12:59 12:59 12:59 WBC 15.8 H RBC Hgb Hct MCV 104 H MCH 34 H MCHC RDW 16.3 H Lymph % (Auto) [place] % (Auto) Lymph # [place] # Seg Neutrophils % Seg Neuts % (Manual) 88.0 H Lymphocytes % (Manual) 3.0 L Monocytes % (Manual) Nucleated RBC % Seg Neutrophils # Seg Neutrophils # Man 13.9 H Lymphocytes # (Manual) 0.5 L Monocytes # (Manual) PT 17.0 H INR 1.34 H APTT D-Dimer Heparin Anti-Xa Level POC ABG pH POC ABG pCO2 POC ABG pO2 Sodium Potassium Chloride Carbon Dioxide 21 L BUN 38 H Creatinine 1.6 H Glucose POC Glucose Lactic Acid Calcium Phosphorus Total Bilirubin 1.30 H C-Reactive Protein NT-Pro-B Natriuret Pep 3913 H Total Protein 6.2 L Albumin 3.6 L Urine WBC (Auto) Urine Creatinine 07/27/18 07/27/18 07/27/18 15:52 16:12 17:09 WBC RBC Hgb Hct MCV MCH MCHC RDW Lymph % (Auto) [place] % (Auto) Lymph # [place] # Seg Neutrophils % Seg Neuts % (Manual) Lymphocytes % (Manual) Monocytes % (Manual) Nucleated RBC % Seg Neutrophils # Seg Neutrophils # Man Lymphocytes # (Manual) Monocytes # (Manual) PT 16.0 H INR 1.24 H APTT D-Dimer 798.17 H Heparin Anti-Xa Level POC ABG pH POC ABG pCO2 POC ABG pO2 Sodium Potassium Chloride Carbon Dioxide BUN Creatinine Glucose POC Glucose Lactic Acid 5.00 H* Calcium Phosphorus Total Bilirubin C-Reactive Protein NT-Pro-B Natriuret Pep Total Protein Albumin Urine WBC (Auto) Urine Creatinine 07/27/18 07/27/18 07/27/18 17:59 18:07 21:31 WBC RBC Hgb Hct MCV MCH MCHC RDW Lymph % (Auto) [place] % (Auto) Lymph # [place] # Seg Neutrophils % Seg Neuts % (Manual) Lymphocytes % (Manual) Monocytes % (Manual) Nucleated RBC % Seg Neutrophils # Seg Neutrophils # Man Lymphocytes # (Manual) Monocytes # (Manual) PT INR APTT D-Dimer Heparin Anti-Xa Level POC ABG pH 7.344 L POC ABG pCO2 POC ABG pO2 36 L Sodium Potassium Chloride Carbon Dioxide BUN Creatinine Glucose POC Glucose Lactic Acid 5.20 H* 5.00 H* Calcium Phosphorus Total Bilirubin C-Reactive Protein NT-Pro-B Natriuret Pep Total Protein Albumin Urine WBC (Auto) Urine Creatinine 07/27/18 07/27/18 07/27/18 21:57 22:42 23:26 WBC RBC Hgb Hct MCV MCH MCHC RDW Lymph % (Auto) [place] % (Auto) Lymph # [place] # Seg Neutrophils % Seg Neuts % (Manual) Lymphocytes % (Manual) Monocytes % (Manual) Nucleated RBC % Seg Neutrophils # Seg Neutrophils # Man Lymphocytes # (Manual) Monocytes # (Manual) PT INR APTT D-Dimer Heparin Anti-Xa Level POC ABG pH 7.199 L POC ABG pCO2 62.0 H POC ABG pO2 Sodium Potassium Chloride Carbon Dioxide BUN Creatinine Glucose POC Glucose Lactic Acid 4.70 H* 5.00 H* Calcium Phosphorus Total Bilirubin C-Reactive Protein NT-Pro-B Natriuret Pep Total Protein Albumin Urine WBC (Auto) Urine Creatinine 07/28/18 07/28/18 07/28/18 00:45 05:40 05:58 WBC RBC Hgb Hct MCV MCH MCHC RDW Lymph % (Auto) [place] % (Auto) Lymph # [place] # Seg Neutrophils % Seg Neuts % (Manual) Lymphocytes % (Manual) Monocytes % (Manual) Nucleated RBC % Seg Neutrophils # Seg Neutrophils # Man Lymphocytes # (Manual) Monocytes # (Manual) PT INR APTT D-Dimer Heparin Anti-Xa Level 0.11 L POC ABG pH 7.186 L POC ABG pCO2 60.1 H POC ABG pO2 68 L Sodium Potassium Chloride Carbon Dioxide BUN Creatinine Glucose POC Glucose Lactic Acid 4.70 H* Calcium Phosphorus Total Bilirubin C-Reactive Protein NT-Pro-B Natriuret Pep Total Protein Albumin Urine WBC (Auto) Urine Creatinine 07/28/18 07/28/18 07/28/18 06:01 06:01 07:19 WBC 12.5 H RBC 3.51 L Hgb 11.5 L Hct MCV 104 H MCH 33 H MCHC RDW 16.6 H Lymph % (Auto) [place] % (Auto) Lymph # [place] # Seg Neutrophils % Seg Neuts % (Manual) Lymphocytes % (Manual) Monocytes % (Manual) Nucleated RBC % Seg Neutrophils # Seg Neutrophils # Man Lymphocytes # (Manual) Monocytes # (Manual) PT INR APTT D-Dimer Heparin Anti-Xa Level 0.14 L POC ABG pH POC ABG pCO2 POC ABG pO2 Sodium 135 L Potassium 5.1 H Chloride 95.0 L Carbon Dioxide 21 L BUN 54 H Creatinine 2.6 H D Glucose POC Glucose Lactic Acid Calcium Phosphorus Total Bilirubin C-Reactive Protein NT-Pro-B Natriuret Pep Total Protein Albumin Urine WBC (Auto) Urine Creatinine 07/28/18 07/28/18 07/28/18 07:19 09:20 11:06 WBC RBC Hgb Hct MCV MCH MCHC RDW Lymph % (Auto) [place] % (Auto) Lymph # [place] # Seg Neutrophils % Seg Neuts % (Manual) Lymphocytes % (Manual) Monocytes % (Manual) Nucleated RBC % Seg Neutrophils # Seg Neutrophils # Man Lymphocytes # (Manual) Monocytes # (Manual) PT INR APTT D-Dimer Heparin Anti-Xa Level POC ABG pH 7.266 L POC ABG pCO2 49.7 H POC ABG pO2 74 L Sodium Potassium Chloride Carbon Dioxide BUN Creatinine Glucose POC Glucose Lactic Acid 4.00 H* 3.90 H* Calcium Phosphorus Total Bilirubin C-Reactive Protein NT-Pro-B Natriuret Pep Total Protein Albumin Urine WBC (Auto) Urine Creatinine 07/28/18 07/28/18 07/28/18 15:06 20:45 23:36 WBC RBC Hgb Hct MCV MCH MCHC RDW Lymph % (Auto) [place] % (Auto) Lymph # [place] # Seg Neutrophils % Seg Neuts % (Manual) Lymphocytes % (Manual) Monocytes % (Manual) Nucleated RBC % Seg Neutrophils # Seg Neutrophils # Man Lymphocytes # (Manual) Monocytes # (Manual) PT INR APTT D-Dimer Heparin Anti-Xa Level 0.15 L POC ABG pH POC ABG pCO2 POC ABG pO2 Sodium 134 L Potassium 5.2 H Chloride Carbon Dioxide BUN 58 H Creatinine 2.1 H Glucose 110 H POC Glucose 125 H Lactic Acid Calcium Phosphorus Total Bilirubin C-Reactive Protein NT-Pro-B Natriuret Pep Total Protein Albumin Urine WBC (Auto) Urine Creatinine 07/29/18 07/29/18 07/29/18 01:12 04:21 04:21 WBC RBC 3.21 L Hgb 10.8 L Hct 33.0 L MCV 103 H MCH 34 H MCHC RDW 16.4 H Lymph % (Auto) [place] % (Auto) Lymph # [place] # Seg Neutrophils % Seg Neuts % (Manual) Lymphocytes % (Manual) 11.0 L Monocytes % (Manual) Nucleated RBC % Seg Neutrophils # Seg Neutrophils # Man Lymphocytes # (Manual) 1.0 L Monocytes # (Manual) PT INR APTT D-Dimer Heparin Anti-Xa Level 0.21 L POC ABG pH POC ABG pCO2 POC ABG pO2 Sodium Potassium Chloride Carbon Dioxide BUN 48 H Creatinine 1.6 H Glucose 166 H POC Glucose Lactic Acid Calcium Phosphorus Total Bilirubin C-Reactive Protein NT-Pro-B Natriuret Pep Total Protein Albumin Urine WBC (Auto) Urine Creatinine 07/29/18 07/29/18 07/29/18 05:19 08:16 09:24 WBC RBC Hgb Hct MCV MCH MCHC RDW Lymph % (Auto) [place] % (Auto) Lymph # [place] # Seg Neutrophils % Seg Neuts % (Manual) Lymphocytes % (Manual) Monocytes % (Manual) Nucleated RBC % Seg Neutrophils # Seg Neutrophils # Man Lymphocytes # (Manual) Monocytes # (Manual) PT INR APTT D-Dimer Heparin Anti-Xa Level 0.25 L POC ABG pH POC ABG pCO2 POC ABG pO2 Sodium Potassium Chloride Carbon Dioxide BUN Creatinine Glucose POC Glucose 181 H Lactic Acid Calcium Phosphorus Total Bilirubin C-Reactive Protein NT-Pro-B Natriuret Pep Total Protein Albumin Urine WBC (Auto) 29.0 H Urine Creatinine 07/29/18 07/29/18 07/29/18 09:24 10:00 15:03 WBC RBC Hgb Hct MCV MCH MCHC RDW Lymph % (Auto) [place] % (Auto) Lymph # [place] # Seg Neutrophils % Seg Neuts % (Manual) Lymphocytes % (Manual) Monocytes % (Manual) Nucleated RBC % Seg Neutrophils # Seg Neutrophils # Man Lymphocytes # (Manual) Monocytes # (Manual) PT INR APTT D-Dimer Heparin Anti-Xa Level POC ABG pH POC ABG pCO2 POC ABG pO2 Sodium Potassium Chloride Carbon Dioxide BUN Creatinine Glucose POC Glucose 195 H 167 H Lactic Acid Calcium Phosphorus Total Bilirubin C-Reactive Protein NT-Pro-B Natriuret Pep Total Protein Albumin Urine WBC (Auto) Urine Creatinine 72.3 H 07/29/18 07/29/18 07/30/18 17:51 21:32 01:38 WBC RBC Hgb Hct MCV MCH MCHC RDW Lymph % (Auto) [place] % (Auto) Lymph # [place] # Seg Neutrophils % Seg Neuts % (Manual) Lymphocytes % (Manual) Monocytes % (Manual) Nucleated RBC % Seg Neutrophils # Seg Neutrophils # Man Lymphocytes # (Manual) Monocytes # (Manual) PT INR APTT D-Dimer Heparin Anti-Xa Level POC ABG pH POC ABG pCO2 POC ABG pO2 Sodium Potassium Chloride Carbon Dioxide BUN Creatinine Glucose POC Glucose 167 H 217 H 194 H Lactic Acid Calcium Phosphorus Total Bilirubin C-Reactive Protein NT-Pro-B Natriuret Pep Total Protein Albumin Urine WBC (Auto) Urine Creatinine 07/30/18 07/30/18 07/30/18 03:21 05:13 10:18 WBC RBC Hgb Hct MCV MCH MCHC RDW Lymph % (Auto) [place] % (Auto) Lymph # [place] # Seg Neutrophils % Seg Neuts % (Manual) Lymphocytes % (Manual) Monocytes % (Manual) Nucleated RBC % Seg Neutrophils # Seg Neutrophils # Man Lymphocytes # (Manual) Monocytes # (Manual) PT INR APTT D-Dimer Heparin Anti-Xa Level POC ABG pH POC ABG pCO2 50.3 H POC ABG pO2 78 L Sodium Potassium Chloride Carbon Dioxide BUN 41 H Creatinine Glucose 202 H POC Glucose 151 H Lactic Acid Calcium Phosphorus Total Bilirubin C-Reactive Protein NT-Pro-B Natriuret Pep Total Protein Albumin Urine WBC (Auto) Urine Creatinine 07/30/18 07/30/18 07/30/18 11:29 16:28 18:12 WBC RBC Hgb Hct MCV MCH MCHC RDW Lymph % (Auto) [place] % (Auto) Lymph # [place] # Seg Neutrophils % Seg Neuts % (Manual) Lymphocytes % (Manual) Monocytes % (Manual) Nucleated RBC % Seg Neutrophils # Seg Neutrophils # Man Lymphocytes # (Manual) Monocytes # (Manual) PT INR APTT D-Dimer Heparin Anti-Xa Level POC ABG pH 7.326 L POC ABG pCO2 53.2 H POC ABG pO2 70 L Sodium Potassium Chloride Carbon Dioxide BUN Creatinine Glucose POC Glucose 247 H 212 H Lactic Acid Calcium Phosphorus Total Bilirubin C-Reactive Protein NT-Pro-B Natriuret Pep Total Protein Albumin Urine WBC (Auto) Urine Creatinine 07/30/18 07/30/18 07/31/18 20:08 21:52 01:59 WBC RBC Hgb Hct MCV MCH MCHC RDW Lymph % (Auto) [place] % (Auto) Lymph # [place] # Seg Neutrophils % Seg Neuts % (Manual) Lymphocytes % (Manual) Monocytes % (Manual) Nucleated RBC % Seg Neutrophils # Seg Neutrophils # Man Lymphocytes # (Manual) Monocytes # (Manual) PT INR APTT D-Dimer Heparin Anti-Xa Level POC ABG pH POC ABG pCO2 POC ABG pO2 Sodium Potassium Chloride Carbon Dioxide BUN Creatinine Glucose POC Glucose 205 H 215 H 242 H Lactic Acid Calcium Phosphorus Total Bilirubin C-Reactive Protein NT-Pro-B Natriuret Pep Total Protein Albumin Urine WBC (Auto) Urine Creatinine 07/31/18 07/31/18 07/31/18 03:14 03:14 04:55 WBC RBC Hgb 10.6 L Hct 33.2 L MCV MCH MCHC RDW Lymph % (Auto) [place] % (Auto) Lymph # [place] # Seg Neutrophils % Seg Neuts % (Manual) Lymphocytes % (Manual) Monocytes % (Manual) Nucleated RBC % Seg Neutrophils # Seg Neutrophils # Man Lymphocytes # (Manual) Monocytes # (Manual) PT INR APTT D-Dimer Heparin Anti-Xa Level POC ABG pH 7.331 L POC ABG pCO2 67.1 H POC ABG pO2 Sodium Potassium Chloride Carbon Dioxide BUN 36 H Creatinine 0.7 L Glucose 242 H POC Glucose Lactic Acid Calcium 10.3 H Phosphorus 2.30 L Total Bilirubin C-Reactive Protein NT-Pro-B Natriuret Pep Total Protein Albumin Urine WBC (Auto) Urine Creatinine 07/31/18 07/31/1818 05:37 10:08 14:07 WBC RBC Hgb Hct MCV MCH MCHC RDW Lymph % (Auto) [place] % (Auto) Lymph # [place] # Seg Neutrophils % Seg Neuts % (Manual) Lymphocytes % (Manual) Monocytes % (Manual) Nucleated RBC % Seg Neutrophils # Seg Neutrophils # Man Lymphocytes # (Manual) Monocytes # (Manual) PT INR APTT D-Dimer Heparin Anti-Xa Level POC ABG pH POC ABG pCO2 POC ABG pO2 Sodium Potassium Chloride Carbon Dioxide BUN Creatinine Glucose POC Glucose 193 H 247 H 225 H Lactic Acid Calcium Phosphorus Total Bilirubin C-Reactive Protein NT-Pro-B Natriuret Pep Total Protein Albumin Urine WBC (Auto) Urine Creatinine 07/31/18 07/31/18 08/01/18 18:12 21:34 02:00 WBC RBC Hgb Hct MCV MCH MCHC RDW Lymph % (Auto) [place] % (Auto) Lymph # [place] # Seg Neutrophils % Seg Neuts % (Manual) Lymphocytes % (Manual) Monocytes % (Manual) Nucleated RBC % Seg Neutrophils # Seg Neutrophils # Man Lymphocytes # (Manual) Monocytes # (Manual) PT INR APTT D-Dimer Heparin Anti-Xa Level POC ABG pH POC ABG pCO2 POC ABG pO2 Sodium Potassium Chloride Carbon Dioxide BUN Creatinine Glucose POC Glucose 197 H 204 H 239 H Lactic Acid Calcium Phosphorus Total Bilirubin C-Reactive Protein NT-Pro-B Natriuret Pep Total Protein Albumin Urine WBC (Auto) Urine Creatinine 08/01/18 08/01/18 08/01/18 04:13 04:37 05:29 WBC RBC Hgb Hct MCV MCH MCHC RDW Lymph % (Auto) [place] % (Auto) Lymph # [place] # Seg Neutrophils % Seg Neuts % (Manual) Lymphocytes % (Manual) Monocytes % (Manual) Nucleated RBC % Seg Neutrophils # Seg Neutrophils # Man Lymphocytes # (Manual) Monocytes # (Manual) PT INR APTT D-Dimer Heparin Anti-Xa Level POC ABG pH 7.296 L POC ABG pCO2 81.9 H POC ABG pO2 190 H Sodium 150 H D Potassium Chloride Carbon Dioxide 37 H D BUN 37 H Creatinine 0.6 L Glucose 223 H POC Glucose 219 H Lactic Acid Calcium Phosphorus Total Bilirubin C-Reactive Protein NT-Pro-B Natriuret Pep Total Protein Albumin Urine WBC (Auto) Urine Creatinine 08/01/18 08/01/18 08/01/18 09:28 11:00 17:36 WBC RBC Hgb Hct MCV MCH MCHC RDW Lymph % (Auto) [place] % (Auto) Lymph # [place] # Seg Neutrophils % Seg Neuts % (Manual) Lymphocytes % (Manual) Monocytes % (Manual) Nucleated RBC % Seg Neutrophils # Seg Neutrophils # Man Lymphocytes # (Manual) Monocytes # (Manual) PT INR APTT D-Dimer Heparin Anti-Xa Level POC ABG pH POC ABG pCO2 61.2 H POC ABG pO2 69 L Sodium Potassium Chloride Carbon Dioxide BUN Creatinine Glucose POC Glucose 185 H 234 H Lactic Acid Calcium Phosphorus Total Bilirubin C-Reactive Protein NT-Pro-B Natriuret Pep Total Protein Albumin Urine WBC (Auto) Urine Creatinine 08/01/18 08/02/18 08/02/18 21:54 00:08 00:44 WBC RBC Hgb Hct MCV MCH MCHC RDW Lymph % (Auto) [place] % (Auto) Lymph # [place] # Seg Neutrophils % Seg Neuts % (Manual) Lymphocytes % (Manual) Monocytes % (Manual) Nucleated RBC % Seg Neutrophils # Seg Neutrophils # Man Lymphocytes # (Manual) Monocytes # (Manual) PT INR APTT D-Dimer Heparin Anti-Xa Level 0.77 H POC ABG pH POC ABG pCO2 66.4 H POC ABG pO2 64 L Sodium Potassium Chloride Carbon Dioxide BUN Creatinine Glucose POC Glucose 242 H Lactic Acid Calcium Phosphorus Total Bilirubin C-Reactive Protein NT-Pro-B Natriuret Pep Total Protein Albumin Urine WBC (Auto) Urine Creatinine 08/02/18 08/02/18 08/02/18 02:46 04:45 04:45 WBC RBC Hgb 10.7 L Hct 33.7 L MCV MCH MCHC RDW Lymph % (Auto) [place] % (Auto) Lymph # [place] # Seg Neutrophils % Seg Neuts % (Manual) Lymphocytes % (Manual) Monocytes % (Manual) Nucleated RBC % Seg Neutrophils # Seg Neutrophils # Man Lymphocytes # (Manual) Monocytes # (Manual) PT INR APTT D-Dimer Heparin Anti-Xa Level POC ABG pH POC ABG pCO2 POC ABG pO2 Sodium 152 H Potassium Chloride 108.1 H Carbon Dioxide 39 H BUN 38 H Creatinine 0.6 L Glucose 226 H POC Glucose 206 H Lactic Acid Calcium Phosphorus Total Bilirubin C-Reactive Protein NT-Pro-B Natriuret Pep Total Protein Albumin Urine WBC (Auto) Urine Creatinine 08/02/18 08/02/18 08/02/18 05:31 09:46 14:23 WBC RBC Hgb Hct MCV MCH MCHC RDW Lymph % (Auto) [place] % (Auto) Lymph # [place] # Seg Neutrophils % Seg Neuts % (Manual) Lymphocytes % (Manual) Monocytes % (Manual) Nucleated RBC % Seg Neutrophils # Seg Neutrophils # Man Lymphocytes # (Manual) Monocytes # (Manual) PT INR APTT D-Dimer Heparin Anti-Xa Level 0.91 H POC ABG pH POC ABG pCO2 POC ABG pO2 Sodium Potassium Chloride Carbon Dioxide BUN Creatinine Glucose POC Glucose 214 H 210 H Lactic Acid Calcium Phosphorus Total Bilirubin C-Reactive Protein NT-Pro-B Natriuret Pep Total Protein Albumin Urine WBC (Auto) Urine Creatinine 08/02/18 08/02/18 08/02/18 15:46 17:56 21:50 WBC RBC Hgb Hct MCV MCH MCHC RDW Lymph % (Auto) [place] % (Auto) Lymph # [place] # Seg Neutrophils % Seg Neuts % (Manual) Lymphocytes % (Manual) Monocytes % (Manual) Nucleated RBC % Seg Neutrophils # Seg Neutrophils # Man Lymphocytes # (Manual) Monocytes # (Manual) PT INR APTT D-Dimer Heparin Anti-Xa Level 0.99 H POC ABG pH POC ABG pCO2 POC ABG pO2 Sodium Potassium Chloride Carbon Dioxide BUN Creatinine Glucose POC Glucose 252 H 222 H Lactic Acid Calcium Phosphorus Total Bilirubin C-Reactive Protein NT-Pro-B Natriuret Pep Total Protein Albumin Urine WBC (Auto) Urine Creatinine 08/03/18 08/03/18 08/03/18 02:18 05:21 05:25 WBC RBC Hgb Hct MCV MCH MCHC RDW Lymph % (Auto) [place] % (Auto) Lymph # [place] # Seg Neutrophils % Seg Neuts % (Manual) Lymphocytes % (Manual) Monocytes % (Manual) Nucleated RBC % Seg Neutrophils # Seg Neutrophils # Man Lymphocytes # (Manual) Monocytes # (Manual) PT INR APTT D-Dimer Heparin Anti-Xa Level POC ABG pH POC ABG pCO2 POC ABG pO2 Sodium 151 H Potassium Chloride 107.3 H Carbon Dioxide 37 H BUN 42 H Creatinine 0.6 L Glucose 263 H POC Glucose 241 H 241 H Lactic Acid Calcium Phosphorus Total Bilirubin C-Reactive Protein NT-Pro-B Natriuret Pep Total Protein Albumin Urine WBC (Auto) Urine Creatinine 12/19/18 12/19/18 12/19/18 09:11 12:20 14:33 WBC RBC Hgb Hct MCV MCH MCHC RDW Lymph % (Auto) [place] % (Auto) Lymph # [place] # Seg Neutrophils % Seg Neuts % (Manual) Lymphocytes % (Manual) Monocytes % (Manual) Nucleated RBC % Seg Neutrophils # Seg Neutrophils # Man Lymphocytes # (Manual) Monocytes # (Manual) PT INR APTT D-Dimer Heparin Anti-Xa Level POC ABG pH POC ABG pCO2 POC ABG pO2 Sodium Potassium Chloride Carbon Dioxide BUN Creatinine Glucose POC Glucose 272 H 234 H 247 H Lactic Acid Calcium Phosphorus Total Bilirubin C-Reactive Protein NT-Pro-B Natriuret Pep Total Protein Albumin Urine WBC (Auto) Urine Creatinine 08/03/18 08/03/18 08/04/18 16:48 21:21 01:56 WBC RBC Hgb Hct MCV MCH MCHC RDW Lymph % (Auto) [place] % (Auto) Lymph # [place] # Seg Neutrophils % Seg Neuts % (Manual) Lymphocytes % (Manual) Monocytes % (Manual) Nucleated RBC % Seg Neutrophils # Seg Neutrophils # Man Lymphocytes # (Manual) Monocytes # (Manual) PT INR APTT D-Dimer Heparin Anti-Xa Level POC ABG pH POC ABG pCO2 POC ABG pO2 Sodium Potassium Chloride Carbon Dioxide BUN Creatinine Glucose POC Glucose 180 H 189 H Lactic Acid Calcium Phosphorus Total Bilirubin C-Reactive Protein 2.30 H NT-Pro-B Natriuret Pep Total Protein Albumin Urine WBC (Auto) Urine Creatinine 08/04/18 08/04/18 08/04/18 01:58 05:05 05:05 WBC 25.5 H RBC 3.31 L Hgb 10.8 L Hct 34.1 L MCV 103 H MCH 33 H MCHC RDW 16.0 H Lymph % (Auto) [place] % (Auto) Lymph # [place] # Seg Neutrophils % Seg Neuts % (Manual) Lymphocytes % (Manual) 8.0 L Monocytes % (Manual) Nucleated RBC % 2.0 H Seg Neutrophils # Seg Neutrophils # Man 16.3 H Lymphocytes # (Manual) Monocytes # (Manual) 1.0 H PT INR APTT D-Dimer Heparin Anti-Xa Level 0.79 H POC ABG pH POC ABG pCO2 POC ABG pO2 Sodium 148 H Potassium Chloride Carbon Dioxide 36 H BUN 35 H Creatinine 0.6 L Glucose 160 H POC Glucose Lactic Acid Calcium Phosphorus Total Bilirubin C-Reactive Protein NT-Pro-B Natriuret Pep Total Protein Albumin Urine WBC (Auto) Urine Creatinine 08/04/18 08/04/18 08/04/18 05:24 05:33 08:46 WBC RBC Hgb Hct MCV MCH MCHC RDW Lymph % (Auto) [place] % (Auto) Lymph # [place] # Seg Neutrophils % Seg Neuts % (Manual) Lymphocytes % (Manual) Monocytes % (Manual) Nucleated RBC % Seg Neutrophils # Seg Neutrophils # Man Lymphocytes # (Manual) Monocytes # (Manual) PT INR APTT D-Dimer Heparin Anti-Xa Level 0.76 H POC ABG pH POC ABG pCO2 65.7 H POC ABG pO2 63 L Sodium Potassium Chloride Carbon Dioxide BUN Creatinine Glucose POC Glucose 159 H Lactic Acid Calcium Phosphorus Total Bilirubin C-Reactive Protein NT-Pro-B Natriuret Pep Total Protein Albumin Urine WBC (Auto) Urine Creatinine 08/04/18 08/04/18 08/04/18 09:12 15:38 18:20 WBC RBC Hgb Hct MCV MCH MCHC RDW Lymph % (Auto) [place] % (Auto) Lymph # [place] # Seg Neutrophils % Seg Neuts % (Manual) Lymphocytes % (Manual) Monocytes % (Manual) Nucleated RBC % Seg Neutrophils # Seg Neutrophils # Man Lymphocytes # (Manual) Monocytes # (Manual) PT INR APTT D-Dimer Heparin Anti-Xa Level POC ABG pH POC ABG pCO2 POC ABG pO2 Sodium Potassium Chloride Carbon Dioxide BUN Creatinine Glucose POC Glucose 140 H 267 H 252 H Lactic Acid Calcium Phosphorus Total Bilirubin C-Reactive Protein NT-Pro-B Natriuret Pep Total Protein Albumin Urine WBC (Auto) Urine Creatinine 08/04/18 08/05/18 08/05/18 21:17 02:51 04:36 WBC RBC Hgb Hct MCV MCH MCHC RDW Lymph % (Auto) [place] % (Auto) Lymph # [place] # Seg Neutrophils % Seg Neuts % (Manual) Lymphocytes % (Manual) Monocytes % (Manual) Nucleated RBC % Seg Neutrophils # Seg Neutrophils # Man Lymphocytes # (Manual) Monocytes # (Manual) PT INR APTT D-Dimer Heparin Anti-Xa Level POC ABG pH POC ABG pCO2 POC ABG pO2 Sodium Potassium Chloride Carbon Dioxide BUN Creatinine Glucose POC Glucose 181 H 240 H 255 H Lactic Acid Calcium Phosphorus Total Bilirubin C-Reactive Protein NT-Pro-B Natriuret Pep Total Protein Albumin Urine WBC (Auto) Urine Creatinine 08/05/18 08/05/18 08/05/18 04:55 10:21 12:39 WBC 21.8 H RBC 3.18 L Hgb 10.3 L Hct 32.6 L MCV 103 H MCH 33 H MCHC RDW 16.3 H Lymph % (Auto) [place] % (Auto) Lymph # [place] # Seg Neutrophils % Seg Neuts % (Manual) 88.0 H Lymphocytes % (Manual) 4.0 L Monocytes % (Manual) Nucleated RBC % Seg Neutrophils # Seg Neutrophils # Man 19.2 H Lymphocytes # (Manual) 0.9 L Monocytes # (Manual) PT INR APTT D-Dimer Heparin Anti-Xa Level POC ABG pH 7.506 H POC ABG pCO2 56.0 H POC ABG pO2 63 L Sodium Potassium Chloride Carbon Dioxide BUN Creatinine Glucose POC Glucose 227 H Lactic Acid Calcium Phosphorus Total Bilirubin C-Reactive Protein NT-Pro-B Natriuret Pep Total Protein Albumin Urine WBC (Auto) Urine Creatinine 08/05/18 08/05/18 08/05/18 12:39 14:10 17:30 WBC RBC Hgb Hct MCV MCH MCHC RDW Lymph % (Auto) [place] % (Auto) Lymph # [place] # Seg Neutrophils % Seg Neuts % (Manual) Lymphocytes % (Manual) Monocytes % (Manual) Nucleated RBC % Seg Neutrophils # Seg Neutrophils # Man Lymphocytes # (Manual) Monocytes # (Manual) PT INR APTT D-Dimer Heparin Anti-Xa Level < 0.10 L POC ABG pH POC ABG pCO2 POC ABG pO2 Sodium Potassium Chloride 96.8 L Carbon Dioxide 38 H BUN 36 H Creatinine 0.6 L Glucose 218 H POC Glucose 221 H Lactic Acid Calcium Phosphorus Total Bilirubin C-Reactive Protein NT-Pro-B Natriuret Pep Total Protein Albumin Urine WBC (Auto) Urine Creatinine 08/05/18 08/05/18 08/06/18 18:32 23:32 02:26 WBC RBC Hgb Hct MCV MCH MCHC RDW Lymph % (Auto) [place] % (Auto) Lymph # [place] # Seg Neutrophils % Seg Neuts % (Manual) Lymphocytes % (Manual) Monocytes % (Manual) Nucleated RBC % Seg Neutrophils # Seg Neutrophils # Man Lymphocytes # (Manual) Monocytes # (Manual) PT INR APTT D-Dimer Heparin Anti-Xa Level POC ABG pH POC ABG pCO2 POC ABG pO2 Sodium Potassium Chloride Carbon Dioxide BUN Creatinine Glucose POC Glucose 253 H 215 H 227 H Lactic Acid Calcium Phosphorus Total Bilirubin C-Reactive Protein NT-Pro-B Natriuret Pep Total Protein Albumin Urine WBC (Auto) Urine Creatinine 08/06/18 08/06/18 08/06/18 05:17 05:17 05:32 WBC 18.9 H RBC 3.06 L Hgb 10.2 L Hct 31.3 L MCV 102 H MCH 33 H MCHC RDW 16.1 H Lymph % (Auto) [place] % (Auto) Lymph # [place] # Seg Neutrophils % Seg Neuts % (Manual) Lymphocytes % (Manual) Monocytes % (Manual) Nucleated RBC % Seg Neutrophils # Seg Neutrophils # Man Lymphocytes # (Manual) Monocytes # (Manual) PT INR APTT D-Dimer Heparin Anti-Xa Level POC ABG pH 7.468 H POC ABG pCO2 59.5 H POC ABG pO2 64 L Sodium Potassium Chloride Carbon Dioxide 37 H BUN 37 H Creatinine 0.5 L Glucose 226 H POC Glucose Lactic Acid Calcium Phosphorus Total Bilirubin C-Reactive Protein NT-Pro-B Natriuret Pep Total Protein Albumin Urine WBC (Auto) Urine Creatinine 08/06/18 08/06/18 08/06/18 10:11 15:03 17:48 WBC RBC Hgb Hct MCV MCH MCHC RDW Lymph % (Auto) [place] % (Auto) Lymph # [place] # Seg Neutrophils % Seg Neuts % (Manual) Lymphocytes % (Manual) Monocytes % (Manual) Nucleated RBC % Seg Neutrophils # Seg Neutrophils # Man Lymphocytes # (Manual) Monocytes # (Manual) PT INR APTT D-Dimer Heparin Anti-Xa Level POC ABG pH POC ABG pCO2 POC ABG pO2 Sodium Potassium Chloride Carbon Dioxide BUN Creatinine Glucose POC Glucose 207 H 229 H 188 H Lactic Acid Calcium Phosphorus Total Bilirubin C-Reactive Protein NT-Pro-B Natriuret Pep Total Protein Albumin Urine WBC (Auto) Urine Creatinine 08/06/18 08/07/18 08/07/18 22:53 01:55 05:30 WBC RBC Hgb Hct MCV MCH MCHC RDW Lymph % (Auto) [place] % (Auto) Lymph # [place] # Seg Neutrophils % Seg Neuts % (Manual) Lymphocytes % (Manual) Monocytes % (Manual) Nucleated RBC % Seg Neutrophils # Seg Neutrophils # Man Lymphocytes # (Manual) Monocytes # (Manual) PT INR APTT D-Dimer Heparin Anti-Xa Level POC ABG pH POC ABG pCO2 69.6 H POC ABG pO2 64 L Sodium Potassium Chloride Carbon Dioxide BUN Creatinine Glucose POC Glucose 146 H 143 H Lactic Acid Calcium Phosphorus Total Bilirubin C-Reactive Protein NT-Pro-B Natriuret Pep Total Protein Albumin Urine WBC (Auto) Urine Creatinine 08/07/18 08/07/18 08/07/18 09:59 14:16 15:08 WBC RBC Hgb 10.3 L Hct 32.2 L MCV MCH MCHC RDW Lymph % (Auto) [place] % (Auto) Lymph # [place] # Seg Neutrophils % Seg Neuts % (Manual) Lymphocytes % (Manual) Monocytes % (Manual) Nucleated RBC % Seg Neutrophils # Seg Neutrophils # Man Lymphocytes # (Manual) Monocytes # (Manual) PT INR APTT D-Dimer Heparin Anti-Xa Level POC ABG pH POC ABG pCO2 POC ABG pO2 Sodium Potassium Chloride Carbon Dioxide BUN Creatinine Glucose POC Glucose 188 H 223 H Lactic Acid Calcium Phosphorus Total Bilirubin C-Reactive Protein NT-Pro-B Natriuret Pep Total Protein Albumin Urine WBC (Auto) Urine Creatinine 08/07/18 08/07/18 08/07/18 15:08 17:39 22:04 WBC RBC Hgb Hct MCV MCH MCHC RDW Lymph % (Auto) [place] % (Auto) Lymph # [place] # Seg Neutrophils % Seg Neuts % (Manual) Lymphocytes % (Manual) Monocytes % (Manual) Nucleated RBC % Seg Neutrophils # Seg Neutrophils # Man Lymphocytes # (Manual) Monocytes # (Manual) PT INR APTT 23.2 L D-Dimer Heparin Anti-Xa Level POC ABG pH POC ABG pCO2 POC ABG pO2 Sodium Potassium Chloride Carbon Dioxide BUN Creatinine Glucose POC Glucose 208 H 163 H Lactic Acid Calcium Phosphorus Total Bilirubin C-Reactive Protein NT-Pro-B Natriuret Pep Total Protein Albumin Urine WBC (Auto) Urine Creatinine 08/07/18 08/08/18 08/08/18 22:30 01:57 02:09 WBC 14.6 H RBC 2.88 L Hgb 9.5 L Hct 29.9 L MCV 104 H MCH 33 H MCHC RDW 16.8 H Lymph % (Auto) [place] % (Auto) Lymph # [place] # Seg Neutrophils % Seg Neuts % (Manual) 73.0 H Lymphocytes % (Manual) 9.0 L Monocytes % (Manual) 10.0 H Nucleated RBC % Seg Neutrophils # Seg Neutrophils # Man 10.7 H Lymphocytes # (Manual) Monocytes # (Manual) 1.5 H PT INR APTT D-Dimer Heparin Anti-Xa Level 0.25 L POC ABG pH POC ABG pCO2 POC ABG pO2 Sodium Potassium Chloride Carbon Dioxide BUN Creatinine Glucose POC Glucose 120 H Lactic Acid Calcium Phosphorus Total Bilirubin C-Reactive Protein NT-Pro-B Natriuret Pep Total Protein Albumin Urine WBC (Auto) Urine Creatinine 08/08/18 08/08/18 08/08/18 02:09 04:58 05:19 WBC RBC Hgb Hct MCV MCH MCHC RDW Lymph % (Auto) [place] % (Auto) Lymph # [place] # Seg Neutrophils % Seg Neuts % (Manual) Lymphocytes % (Manual) Monocytes % (Manual) Nucleated RBC % Seg Neutrophils # Seg Neutrophils # Man Lymphocytes # (Manual) Monocytes # (Manual) PT INR APTT D-Dimer Heparin Anti-Xa Level POC ABG pH 7.461 H POC ABG pCO2 57.3 H POC ABG pO2 62 L Sodium Potassium Chloride Carbon Dioxide 39 H BUN 29 H Creatinine 0.5 L Glucose 124 H POC Glucose 139 H Lactic Acid Calcium Phosphorus Total Bilirubin C-Reactive Protein NT-Pro-B Natriuret Pep Total Protein Albumin Urine WBC (Auto) Urine Creatinine 08/08/18 08/08/18 08/08/18 10:22 14:52 16:12 WBC RBC Hgb Hct MCV MCH MCHC RDW Lymph % (Auto) [place] % (Auto) Lymph # [place] # Seg Neutrophils % Seg Neuts % (Manual) Lymphocytes % (Manual) Monocytes % (Manual) Nucleated RBC % Seg Neutrophils # Seg Neutrophils # Man Lymphocytes # (Manual) Monocytes # (Manual) PT INR APTT D-Dimer Heparin Anti-Xa Level POC ABG pH POC ABG pCO2 POC ABG pO2 Sodium Potassium Chloride Carbon Dioxide BUN Creatinine Glucose POC Glucose 169 H 149 H 136 H Lactic Acid Calcium Phosphorus Total Bilirubin C-Reactive Protein NT-Pro-B Natriuret Pep Total Protein Albumin Urine WBC (Auto) Urine Creatinine 08/09/18 08/09/18 08/09/18 02:26 03:52 03:52 WBC 15.9 H RBC 2.87 L Hgb 9.6 L Hct 30.7 L MCV 107 H MCH 34 H MCHC 31 L RDW 17.8 H Lymph % (Auto) 3.9 L [place] % (Auto) 8.1 H Lymph # 0.6 L [place] # 1.3 H Seg Neutrophils % 87.1 H Seg Neuts % (Manual) Lymphocytes % (Manual) Monocytes % (Manual) Nucleated RBC % Seg Neutrophils # 13.9 H Seg Neutrophils # Man Lymphocytes # (Manual) Monocytes # (Manual) PT INR APTT D-Dimer Heparin Anti-Xa Level 0.25 L POC ABG pH POC ABG pCO2 POC ABG pO2 Sodium Potassium Chloride Carbon Dioxide BUN Creatinine Glucose POC Glucose 126 H Lactic Acid Calcium Phosphorus Total Bilirubin C-Reactive Protein NT-Pro-B Natriuret Pep Total Protein Albumin Urine WBC (Auto) Urine Creatinine 08/09/18 08/09/18 08/09/18 03:52 05:34 06:48 WBC RBC Hgb Hct MCV MCH MCHC RDW Lymph % (Auto) [place] % (Auto) Lymph # [place] # Seg Neutrophils % Seg Neuts % (Manual) Lymphocytes % (Manual) Monocytes % (Manual) Nucleated RBC % Seg Neutrophils # Seg Neutrophils # Man Lymphocytes # (Manual) Monocytes # (Manual) PT INR APTT D-Dimer Heparin Anti-Xa Level POC ABG pH POC ABG pCO2 57.5 H POC ABG pO2 58 L Sodium Potassium Chloride Carbon Dioxide 39 H BUN 26 H Creatinine 0.5 L Glucose 128 H POC Glucose 171 H Lactic Acid Calcium Phosphorus Total Bilirubin C-Reactive Protein NT-Pro-B Natriuret Pep Total Protein Albumin Urine WBC (Auto) Urine Creatinine 08/09/18 08/09/18 08/09/18 09:28 09:36 13:44 WBC RBC Hgb Hct MCV MCH MCHC RDW Lymph % (Auto) [place] % (Auto) Lymph # [place] # Seg Neutrophils % Seg Neuts % (Manual) Lymphocytes % (Manual) Monocytes % (Manual) Nucleated RBC % Seg Neutrophils # Seg Neutrophils # Man Lymphocytes # (Manual) Monocytes # (Manual) PT INR APTT D-Dimer Heparin Anti-Xa Level 0.26 L POC ABG pH POC ABG pCO2 POC ABG pO2 Sodium Potassium Chloride Carbon Dioxide BUN Creatinine Glucose POC Glucose 183 H 184 H Lactic Acid Calcium Phosphorus Total Bilirubin C-Reactive Protein NT-Pro-B Natriuret Pep Total Protein Albumin Urine WBC (Auto) Urine Creatinine 08/09/18 08/10/18 08/10/18 17:55 04:49 05:20 WBC RBC Hgb Hct MCV MCH MCHC RDW Lymph % (Auto) [place] % (Auto) Lymph # [place] # Seg Neutrophils % Seg Neuts % (Manual) Lymphocytes % (Manual) Monocytes % (Manual) Nucleated RBC % Seg Neutrophils # Seg Neutrophils # Man Lymphocytes # (Manual) Monocytes # (Manual) PT INR APTT D-Dimer Heparin Anti-Xa Level POC ABG pH POC ABG pCO2 59.9 H POC ABG pO2 59 L Sodium Potassium Chloride Carbon Dioxide BUN Creatinine Glucose POC Glucose 148 H 59 L Lactic Acid Calcium Phosphorus Total Bilirubin C-Reactive Protein NT-Pro-B Natriuret Pep Total Protein Albumin Urine WBC (Auto) Urine Creatinine 08/10/18 05:53 WBC RBC Hgb Hct MCV MCH MCHC RDW Lymph % (Auto) [place] % (Auto) Lymph # [place] # Seg Neutrophils % Seg Neuts % (Manual) Lymphocytes % (Manual) Monocytes % (Manual) Nucleated RBC % Seg Neutrophils # Seg Neutrophils # Man Lymphocytes # (Manual) Monocytes # (Manual) PT INR APTT D-Dimer Heparin Anti-Xa Level POC ABG pH POC ABG pCO2 POC ABG pO2 Sodium Potassium Chloride Carbon Dioxide BUN Creatinine Glucose POC Glucose 128 H Lactic Acid Calcium Phosphorus Total Bilirubin C-Reactive Protein NT-Pro-B Natriuret Pep Total Protein Albumin Urine WBC (Auto) Urine Creatinine Allied health notes reviewed: RT
--- NOTE | 2018-08-10 11:55 | Procedure Note ---
Date of procedure: 08/10/18 Pre-op diagnosis: VDRF Post-op diagnosis: same Procedure: PEG tube placement Findings: Pt positioned in supine postion. Time out performed at the start of the procedure. The endoscope was placed through the patient's mouth and into the esophagus under direct visualization. The dobhoff tube was used a guide and seen throughout. The endoscope was advanced into the stomach and a position in the body of the stomach was chosen for PEG placement as there was good transillumination through the abdominal wall. The abdominal skin was prepped and draped in the usual sterile fashion. Dr. Soto performed this part of the procedure. The skin was anesthetized with 1% lidocaine and a small incision was made in the skin. The introducer needle and sheath were inserted under direct endoscopic visualization into the stomach. The needle was withdrawn and the wire threaded into the stomach. This was grasped using a snare and pulled out through the mouth along with the endoscope. The PEG tube was attached in the usual fashion and then pulled through the mouth and into the stomach. The outer bumper was positioned at 3.5cm at the skin. The endoscope was once again passed through the mouth and into the stomach. The stomach, pylorus, duodenum were examined and unremarkable. The dobhoff tube was removed. The PEG tube inner bumper was seen to lay flush against the stomach wall without tension. The stomach was desufflated and the endoscope withdrawn into the esophagus. The entire esophagus was examined and was unremarkable. The endoscope was withdrawn from the mouth. The dobhoff tube was removed. The PEG tube was assembled and secured in the usual fashion. The patient tolerated the procedure well. All sharps were disposed of appropriately. Implants: PEG tube Anesthesia: ALBERT, local Surgeon: NATI OWUSU Industrial Refrigeration Mechanic: ANIKA SOTO (cosurgeon) Estimated blood loss: minimal Pathology: none Condition: stable Disposition: ICU
--- NOTE | 2018-08-10 11:55 | Procedure Note ---
Date of procedure: 08/10/18 Pre-op diagnosis: Respiratory Failure Post-op diagnosis: same Procedure: Perc Trach Consent was on the chart. Time out was performed. Sterile prep and drape was done. Anesthesia was managed by anesthesia provider. Lidocaine was used to anesthetize an area about two finger breadths above the sternal notch. Transverse incision was made. Blunt dissection was carried down to trachea. Under bronchoscopic guidance, a finder needle was used to enter the trachea. Thereafter, the introducer needle was inserted. It was approximately at the second tracheal ring. Tract was dilated and tracheostomy tube was inserted. Balloon was inflated. Position was rechecked via bronchoscopy through the tracheostomy tube. We were at least 1 cm above the madi. We had good inspiratory and expiratory volumes. CXR shows the tube to be in good position (unofficial read). There were no apparent complications at the end of the case. Anesthesia: MAC Surgeon: ANIKA SOTO Pumper Head: NATI OWUSU (Bronchoscopy) Estimated blood loss: minimal Pathology: none Condition: stable Disposition: ICU
--- NOTE | 2018-08-10 11:57 | Procedure Note ---
Date of procedure: 08/10/18 Pre-op diagnosis: VDRF Post-op diagnosis: same Procedure: Fiberoptic bronchoscopy Findings: Time out taken. The patient was in supine position. The bronchoscope was passed through the adapter attached to the endotracheal tube. The madi was visualized. There was some frothy white sputum in the mainstem bronchi which was suctioned. Otherwise, the airway was clean without inflammation. Dr. Palacio performed the tracheostomy (please see separate report). The endotracheal tube was withdrawn slowly by the respiratory therapist. The percutaneous tracheostomy was performed under direct visualization. Once the tracheostomy was placed, the bronchoscope was withdrawn from the ET tube and placed through the tracheostomy. The tip of the tracheostomy tube was 2 cm from the madi. There was no bleeding. There was some thick sputum in the mainstem bronchi which was suctioned. The bronchoscope was withdrawn and the patient was hooked up to the ventilator. Tidal volumes were satisfactory. The patient tolerated the procedure well. Implants: 8F proximal XLT Anesthesia: LEROYA, local Surgeon: NATI OWUSU Estimated blood loss: minimal Pathology: none Condition: stable Disposition: ICU
--- NOTE | 2018-08-10 12:33 | Progress Note ---
Assessment and Plan Assessment and plan: Sepsis. Blood cultures reveal Streptococcus anginosus. Continue antibiotics per ID--completed cefepime Acute kidney injury. Etiology secondary to above. Continue to monitor creatinine. Left lower lobe pneumonia. Continue antibiotics and follow chest x-ray. Sputum culture revealed Pseudomonas and MSSA Acute hypoxemic respiratory failure. Etiology secondary to above. Continue on mechanical ventilation and weaning per pulmonary. Follow-up serial chest x-ray and ABGs. Pt is scheduled for tracheostomy and PEG tube placement this am Atrial fibrillation. Continue amiodarone and diltiazem. Cardiology following. REGAN negative Acute renal failure. Etiology likely secondary to sepsis/ATN. Renal ultrasound unremarkable. COPD exacerbation. Continue bronchodilators/nebulizers. IV steroids. Hypertension. Resume antihypertensive medications as needed. Hyperlipidemia. Peripheral vascular disease. The high probability of a clinically significant, sudden or life threatening deterioration of the [respiratory] system(s) required my full and direct attention, intervention and personal management. The aggregate critical care time was [33] minutes. This time is in addition to time spent performing reported procedures but includes the following: [x] Data Review and interpretation [x] Patient assessment and monitoring of vital signs [x] Documentation [x] Medication orders and management History Interval history: 73 YO Male with H/O COPD, PVD, HTN, HLD, Seizure Disorder, Skin Cancer presents to ED for evaluation. Pt states that he has experienced shortness and chest palpitations over the past 2 days with worsening symptoms over the past 1 day. Pt acknowledges decreased exercise tolerance, as well as dyspnea on exertion. Pt was seen and evaluated by his training executive today and was sent to [facility] ED for further care and evaluation. Pt denies fever, chills, leg swelling, calf pain, CP with deep breathing, hemoptysis, Prolonged air/car travel, or immobility, Back Pain, Syncope, Lightheadedness, recent ill contacts, unintentional weight loss, night sweats, or bone pain. Pt seen and evaluated in ED and found to have Atrial Fib with RVR refractory to cardizem drip, but improved with Amiodarone Drip, Acute Hypoxemic Respiratory Failure, SIRS. Pt admitted to ICU. The patient later after admission had further decompensation with respiratory distress. Patient reportedly was satting 60-70% on a nonrebreather and had to be emergently intubated. The patient remains intubated on mechanical ventilation Hospitalist Physical - Constitutional Vitals: Temp Pulse Resp BP Pulse Ox 100.1 F H 73 23 95/50 100 08/10/18 08:00 08/10/18 12:04 08/10/18 10:30 08/10/18 12:04 08/10/18 12:04 General appearance: Present: no acute distress, other (intubated on mechanical ventilation) - EENT Eyes: Present: PERRL, EOM intact ENT: hearing intact, clear oral mucosa, dentition normal - Neck Neck: Present: supple, normal ROM - Respiratory Respiratory effort: normal Respiratory: bilateral: CTA - Cardiovascular Rhythm: regular Heart Sounds: Present: S1 & S2. Absent: gallop, rub - Extremities Extremities: no ischemia, No edema, Full ROM - Abdominal General gastrointestinal: soft, non-tender, non-distended, normal bowel sounds - Integumentary Integumentary: Present: clear, warm, dry - Neurologic Neurologic: CNII-XII intact, moves all extremities Results - Labs CBC & Chem 7: 08/09/18 03:52 08/09/18 03:52 Labs: Laboratory Last Values WBC 15.9 K/mm3 (4.5-11.0) H 08/09/18 03:52 RBC 2.87 M/mm3 (3.65-5.03) L 08/09/18 03:52 Hgb 9.6 gm/dl (11.8-15.2) L 08/09/18 03:52 Hct 30.7 % (35.5-45.6) L 08/09/18 03:52 MCV 107 fl (84-94) H 08/09/18 03:52 MCH 34 pg (28-32) H 08/09/18 03:52 MCHC 31 % (32-34) L 08/09/18 03:52 RDW 17.8 % (13.2-15.2) H 08/09/18 03:52 Plt Count 205 K/mm3 (140-440) 08/09/18 03:52 Lymph % (Auto) 3.9 % (13.4-35.0) L 08/09/18 03:52 [place] % (Auto) 8.1 % (0.0-7.3) H 08/09/18 03:52 Eos % (Auto) 0.8 % (0.0-4.3) 08/09/18 03:52 Baso % (Auto) 0.1 % (0.0-1.8) 08/09/18 03:52 Lymph # 0.6 K/mm3 (1.2-5.4) L 08/09/18 03:52 [place] # 1.3 K/mm3 (0.0-0.8) H 08/09/18 03:52 Eos # 0.1 K/mm3 (0.0-0.4) 08/09/18 03:52 Baso # 0.0 K/mm3 (0.0-0.1) 08/09/18 03:52 Add Manual Diff Complete 08/08/18 02:09 Total Counted 100 08/08/18 02:09 Seg Neutrophils % 87.1 % (40.0-70.0) H 08/09/18 03:52 Seg Neuts % (Manual) 73.0 % (40.0-70.0) H 08/08/18 02:09 Band Neutrophils % 5.0 % 08/08/18 02:09 Lymphocytes % (Manual) 9.0 % (13.4-35.0) L 08/08/18 02:09 Reactive Lymphs % (Man) 0 % 08/08/18 02:09 Monocytes % (Manual) 10.0 % (0.0-7.3) H 08/08/18 02:09 Eosinophils % (Manual) 0 % (0.0-4.3) 08/08/18 02:09 Basophils % (Manual) 0 % (0.0-1.8) 08/08/18 02:09 Metamyelocytes % 3.0 % 08/08/18 02:09 Myelocytes % 0 % 08/08/18 02:09 Promyelocytes % 0 % 08/08/18 02:09 Blast Cells % 0 % 08/08/18 02:09 Nucleated RBC % Not Reportable 08/08/18 02:09 Seg Neutrophils # 13.9 K/mm3 (1.8-7.7) H 08/09/18 03:52 Seg Neutrophils # Man 10.7 K/mm3 (1.8-7.7) H 08/08/18 02:09 Band Neutrophils # 0.7 K/mm3 08/08/18 02:09 Lymphocytes # (Manual) 1.3 K/mm3 (1.2-5.4) 08/08/18 02:09 Abs React Lymphs (Man) 0.0 K/mm3 08/08/18 02:09 Monocytes # (Manual) 1.5 K/mm3 (0.0-0.8) H 08/08/18 02:09 Eosinophils # (Manual) 0.0 K/mm3 (0.0-0.4) 08/08/18 02:09 Basophils # (Manual) 0.0 K/mm3 (0.0-0.1) 08/08/18 02:09 Metamyelocytes # 0.4 K/mm3 08/08/18 02:09 Myelocytes # 0.0 K/mm3 08/08/18 02:09 Promyelocytes # 0.0 K/mm3 08/08/18 02:09 Blast Cells # 0.0 K/mm3 08/08/18 02:09 Pathologist Review 07/28/18 06:01 WBC Morphology Not Reportable 08/08/18 02:09 Hypersegmented Neuts Not Reportable 08/08/18 02:09 Hyposegmented Neuts Not Reportable 08/08/18 02:09 Hypogranular Neuts Not Reportable 08/08/18 02:09 Smudge Cells Not Reportable 08/08/18 02:09 Toxic Granulation Not Reportable 08/08/18 02:09 Toxic Vacuolation Not Reportable 08/08/18 02:09 Dohle Bodies Not Reportable 08/08/18 02:09 Pelger-Huet Anomaly Not Reportable 08/08/18 02:09 Janiya Rods Not Reportable 08/08/18 02:09 Platelet Estimate Appears normal 08/08/18 02:09 Clumped Platelets Not Reportable 08/08/18 02:09 Plt Clumps, EDTA Not Reportable 08/08/18 02:09 Large Platelets Not Reportable 08/08/18 02:09 Giant Platelets Not Reportable 08/08/18 02:09 Platelet Satelliting Not Reportable 08/08/18 02:09 Plt Morphology Comment Not Reportable 08/08/18 02:09 RBC Morphology Not Reportable 08/08/18 02:09 Dimorphic RBCs Not Reportable 08/08/18 02:09 Polychromasia Not Reportable 08/08/18 02:09 Hypochromasia Few 08/08/18 02:09 Poikilocytosis Not Reportable 08/08/18 02:09 Anisocytosis 1+ 08/08/18 02:09 Microcytosis Not Reportable 08/08/18 02:09 Macrocytosis Not Reportable 08/08/18 02:09 Spherocytes Not Reportable 08/08/18 02:09 Pappenheimer Bodies Not Reportable 08/08/18 02:09 Sickle Cells Not Reportable 08/08/18 02:09 Target Cells Not Reportable 08/08/18 02:09 Tear Drop Cells Not Reportable 08/08/18 02:09 Ovalocytes Not Reportable 08/08/18 02:09 Stomatocytes Few 08/08/18 02:09 Helmet Cells Not Reportable 08/08/18 02:09 [place] Bodies Not Reportable 08/08/18 02:09 [place] Rings Not Reportable 08/08/18 02:09 Elkins Cells Not Reportable 08/08/18 02:09 Bite Cells Not Reportable 08/08/18 02:09 Crenated Cell Not Reportable 08/08/18 02:09 Elliptocytes Not Reportable 08/08/18 02:09 Acanthocytes (Spur) Not Reportable 08/08/18 02:09 Rouleaux Not Reportable 08/08/18 02:09 Hemoglobin C Crystals Not Reportable 08/08/18 02:09 Schistocytes Not Reportable 08/08/18 02:09 Malaria parasites Not Reportable 08/08/18 02:09 Jigar Bodies Not Reportable 08/08/18 02:09 Hem Pathologist Commnt No 08/08/18 02:09 PT 13.4 Sec. (12.2-14.9) 08/07/18 15:08 INR 0.98 (0.87-1.13) 08/07/18 15:08 APTT 23.2 Sec. (24.2-36.6) L 08/07/18 15:08 D-Dimer 798.17 ng/mlDDU (0-234) H 07/27/18 15:52 Heparin Anti-Xa Level 0.38 U.I./ml (0.3-0.7) 08/09/18 18:26 POC ABG pH 7.416 (7.35-7.45) 08/10/18 04:49 POC ABG pCO2 59.9 (35-45) H 08/10/18 04:49 POC ABG pO2 59 (80-105) L 08/10/18 04:49 POC ABG HCO3 38.5 08/10/18 04:49 POC ABG Total CO2 40 08/10/18 04:49 POC ABG O2 Sat 90 08/10/18 04:49 POC ABG Base Excess 14 08/10/18 04:49 FiO2 40 % 08/10/18 04:49 Sodium 142 mmol/L (137-145) 08/09/18 03:52 Potassium 4.3 mmol/L (3.6-5.0) 08/09/18 03:52 Chloride 99.2 mmol/L (98-107) 08/09/18 03:52 Carbon Dioxide 39 mmol/L (22-30) H 08/09/18 03:52 Anion Gap 8 mmol/L 08/09/18 03:52 BUN 26 mg/dL (9-20) H 08/09/18 03:52 Creatinine 0.5 mg/dL (0.8-1.5) L 08/09/18 03:52 Estimated GFR > 60 ml/min 08/09/18 03:52 BUN/Creatinine Ratio 52 % 08/09/18 03:52 Glucose 128 mg/dL (75-100) H 08/09/18 03:52 POC Glucose 82 (70-105) 08/10/18 09:32 Lactic Acid 1.30 mmol/L (0.7-2.0) 08/03/18 16:48 Calcium 8.7 mg/dL (8.4-10.2) 08/09/18 03:52 Phosphorus 2.80 mg/dL (2.5-4.5) 08/06/18 05:17 Magnesium 2.30 mg/dL (1.7-2.3) 08/06/18 05:17 Total Bilirubin 1.30 mg/dL (0.1-1.2) H 07/27/18 12:59 AST 15 units/L (5-40) 07/27/18 12:59 ALT 16 units/L (7-56) 07/27/18 12:59 Alkaline Phosphatase 62 units/L (35-129) 07/27/18 12:59 Troponin T < 0.010 ng/mL (0.00-0.029) 07/27/18 12:59 C-Reactive Protein 2.30 mg/dL (0.00-1.30) H 08/03/18 16:48 NT-Pro-B Natriuret Pep 3913 pg/mL (0-900) H 07/27/18 12:59 Total Protein 6.2 g/dL (6.3-8.2) L 07/27/18 12:59 Albumin 3.6 g/dL (3.9-5) L 07/27/18 12:59 Albumin/Globulin Ratio 1.4 % 07/27/18 12:59 Triglycerides 64 mg/dL (2-149) 08/08/18 14:02 TSH 1.180 mlU/mL (0.270-4.200) 07/27/18 15:52 Free T4 1.28 ng/dL (0.76-1.46) 07/27/18 15:52 Urine Color Yellow (Yellow) 07/29/18 09:24 Urine Turbidity Cloudy (Clear) 07/29/18 09:24 Urine pH 5.0 (5.0-7.0) 07/29/18 09:24 Ur Specific [place] 1.017 (1.003-1.030) 07/29/18 09:24 Urine Protein 30 mg/dl mg/dL (Negative) 07/29/18 09:24 Urine Glucose (UA) Neg mg/dL (Negative) 07/29/18 09:24 Urine Ketones Neg mg/dL (Negative) 07/29/18 09:24 Urine Blood Mod (Negative) 07/29/18 09:24 Urine Nitrite Neg (Negative) 07/29/18 09:24 Urine Bilirubin Neg (Negative) 07/29/18 09:24 Urine Urobilinogen < 2.0 mg/dL (<2.0) 07/29/18 09:24 Ur Leukocyte Esterase Mod (Negative) 07/29/18 09:24 Urine WBC (Auto) 29.0 /HPF (0.0-6.0) H 07/29/18 09:24 Urine RBC (Auto) 7.0 /HPF (0.0-6.0) 07/29/18 09:24 U Epithel Cells (Auto) 2.0 /HPF (0-13.0) 07/29/18 09:24 Urine Bacteria (Auto) 1+ /HPF (Negative) 07/29/18 09:24 Urine Mucus Few /HPF 07/29/18 09:24 Urine Yeast (Budding) 1+ /HPF 07/29/18 09:24 Urine Creatinine 72.3 mg/dL (0.1-20.0) H 07/29/18 09:24 Urine Sodium 12 mmol/L 07/29/18 09:24 Random Vancomycin 9.2 ug/mL (0-40.0) 07/29/18 04:21 Nutrition/Malnutrition Assess - Dietary Evaluation Nutrition/Malnutrition Findings: Nutrition Notes Start: 07/28/18 10:54 Freq: Status: Active Protocol: Document 08/04/18 10:13 TW (Rec: 08/04/18 10:46 TW [id number]) Co-Sign 08/04/18 10:13 LP Nutrition Notes Initial or Follow up Reassessment Current Diagnoses Acute Kidney Injury COPD Sepsis Hypertension Heart Failure Respiratory Failure Other Pertinent Diagnosis Hx of Skin Cancer Current Diet Nepro at 50ml/hr Labs/Tests BUN: 35 Cr: 0.6 Medications Propofol at 2.53mL/hr (67 lipid kcal) Solumedrol Height 5 ft 8 in Weight 87.6 kg [place] Body Weight (lbs) 154.0 BMI 29.3 Weight change and time frame Wt. change noted. Subjective/Other Information Nepro infusing at goal rate of 50mL/hr. Per RN, pt. tolerating TF well. Percent of energy/protein needs met: 100%/69% Burn Absent Trauma Absent #1 Nutrition Diagnoses Inadequate oral intake Diagnosis Progress(for reassessment Continues documentation) Is patient on ventilator? Yes Is Patient Ambulatory and/or Out of Bed No REE-([place] Jeor-confined to bed) 9320.733 Calculation Used for Recommendations [place] Jeor Additional Notes protein (2g/kg IBW): 140g daily fluid: 1mL/kcal Nutrition Intervention Change Diet Order: Continue TF Nutrition Support: Nepro at 50mL/hr 250 mL free water flush q4h or per MD. Kcal 2,160 Protein (gm) 97 Fluid (mL) 872 Goal #1 TF tolerance and rate Goal #2 Meet at least 80% of kcal needs and 80-100% of protein needs. Anticipated Discharge Needs: unable to determine at this time Follow-Up By: 08/10/18 Additional Comments F/U for stable TF
--- NOTE | 2018-08-10 13:39 | XRay Report ---
AP CHEST 08/10/18 12:19 CLINICAL: Tracheostomy placement. COMPARISON:08/03/18 FINDINGS: Since the last exam, an endotracheal tube has been removed and a tracheostomy tube has been inserted. The tracheostomy tube is in satisfactory position above the madi. No other tubes or lines. The heart and lungs are unchanged. No pneumothorax. IMPRESSION: Satisfactory placement of tracheostomy tube.
--- NOTE | 2018-08-10 13:51 | Anesthesia Consultation ---
Anesthesia Consult and Med Hx Date of service: 08/10/18 - Airway ROM Head & Neck: Adequate Mental/Hyoid Distance: Adequate Intubation Access Assessment: Good - Pulmonary Exam CTA: Yes - Cardiac Exam Cardiac Exam: RRR - Pre-Operative Health Status ASA Pre-Surgery Classification: ASA4 Proposed Anesthetic Plan: General - Pulmonary Hx Smoking: Yes (Quit 2011) Hx Asthma: No Hx Respiratory Symptoms: No SOB: Yes COPD: Yes Hx Pneumonia: Yes (03/2014, currently also, per POA) Hx Sleep Apnea: No - Cardiovascular System Hx Hypertension: Yes Hx Coronary Artery Disease: No Hx Heart Attack/AMI: No Hx Angina: No Hx Percutaneous Transluminal Coronary Angioplasty (PTCA): No Hx Cardia Arrhythmia: No Hx Pacemaker: No Hx Internal Defibrillator: No Hx Valvular Heart Disease: Yes (moderate TR) Hx Heart Murmur: No Hx Peripheral Vascular Disease: Yes (lower extremities) - Central Nervous System Hx Neuromuscular Disorder: No Hx Seizures: No CVA: No Hx Back Pain: No Hx Psychiatric Problems: No - Gastrointestinal Hx Ulcer: No Hx Gastroesophageal Reflux Disease: Yes (food related) - Endocrine Hx Renal Disease: No Hx End Stage Renal Disease: No Hx Cirrhosis: No Hx Liver Disease: No Hx Insulin Dependent Diabetes: No Hx Non-Insulin Dependent Diabetes: No Hx Thyroid Disease: No Hx Hypothyroidism: No Hx Hyperthyroidism: No - Hematic Hx Anemia: No Hx Sickle Cell Disease: No - Other Systems Hx Alcohol Use: Yes Hx Substance Use: No Hx Cancer: Yes (SKIN(FACE,CHIN, NECK, NOSE, ARMS) REMOVED) Hx Obesity: No - Additional Comments Anesthesia Medical History Comments: Hx clots, per POA (could not specify where).
--- NOTE | 2018-08-10 13:51 | Anesthesia Day of Surgery ---
Anesthesia Day of Surgery - Day of Surgery Patient Examined: Yes Patient H&P Reviewed: Yes Patient is NPO: Yes
[2018-08-10] MEDS: fentaNYL DRIP Premix 2,000 MCG/100 ML BAG IV SCH (14:02)
[2018-08-10] MEDS: SODIUM CHLORIDE FLUSH SYRINGE 10 ML IV SCH ×2 (14:03→21:15)
--- NOTE | 2018-08-10 14:53 | Progress Note ---
Assessment and Plan Cultures: 07/27/2018 tracheal aspirate culture: Pseudomonas aeruginosa, MSSA 07/28/2018 blood culture: 4 out of 4 bottles positive for Streptococcus anginosus 07/28/2018 fungal blood culture: In progress but no growth thus far 07/29/2018 urine culture: No growth 08/01/2018 blood culture: negative thus far A/P: 73-year-old male with COPD, peripheral vascular disease, hypertension, hyperlipidemia, seizure disorder admitted with: 1) Sepsis secondary to Streptococcus anginosus bacteremia: Present on admission. Source is unclear. Patient does have evidence of pneumonia however sputum cultures are not concordant and are growing pseudomonas aeruginosa and MSSA. Reviewed cardiology note, REGAN was reportedly negative. Continue abx, previously received Ceftriaxone and Vancomycin, followed by Cefepime, completed and now off abx. 2) Acute respiratory failure secondary to congestive heart failure and pneumonia: completed IV cefepime to cover both MSSA and Pseudomonas. now s/p trach and PEG. 3) CARLEE, present on admission, now resolved. 4) Leucocytosis: ?reactive. stable. No new fever. Will monitor for now. Off abx. Recs: monitor off antibiotics Rhea Ro MD [facility] C: [phone] O: [phone] F: [phone] Subjective Date of service: 08/10/18 Principal diagnosis: Acute hypoxemic respiratory failure; A-fib with RVR; Possible CHF; H/O DVT Interval history: Had trach and PEG today. Doing well. Low grade fevers +. currently sleepy. Objective - Exam Narrative Exam: Physical Exam: Constitutional: drowsy but can easily be awakened, on vent Head, Ears, Nose: Normocephalic, atraumatic. External ears, nose normal Eyes: Conjunctivae/corneas clear. No icterus. No ptosis. Neck: trach + Oral:no thrush, no ulcers Cardiovascular: S1, S2 normal Respiratory: no rhonchi or crackles GI: Soft, non-tender; bowel sounds normal. No peritoneal signs. PEG tube + Musculoskeletal: trace pedal edema, no cyanosis. Skin: No rash or abscess Hem/Lymphatic: No palpable cervical or supraclavicular nodes. No lymphangitis Psych: no agitation Neurological: drowsy but can easily be awakened, on vent - Constitutional Vitals: Vital Signs Temp Pulse Resp BP Pulse Ox 98.2 F 75 16 100/53 100 08/10/18 12:00 08/10/18 14:00 08/10/18 14:00 08/10/18 14:00 08/10/18 14:00 Temperature -Last 24 Hours Temperature 98.2 F Temperature 100.1 F Temperature 98.9 F Temperature 98.1 F Temperature 98.8 F Temperature 98.8 F - Labs CBC & Chem 7: 08/09/18 03:52 08/09/18 03:52 Labs: Abnormal lab results 08/09/18 08/10/18 08/10/18 Range/Units 17:55 04:49 05:20 POC ABG pCO2 59.9 H (35-45) POC ABG pO2 59 L (80-105) POC Glucose 148 H 59 L (70-105) 08/10/18 Range/Units 05:53 POC ABG pCO2 (35-45) POC ABG pO2 (80-105) POC Glucose 128 H (70-105)
[2018-08-10] MEDS: LANTUS SUB-Q SCH (21:35)
[2018-08-11] MEDS: CARDIZEM PO SCH ×6 (00:38→22:30)
[2018-08-11] MEDS: HumaLOG SUB-Q SCH ×5 (04:04→22:31)
[2018-08-11] MEDS: HEPARIN/ 0.45% NACL-25,000 UNIT/500 ML 25,000 UNIT/500 ML BAG IV SCH ×3 (04:15→19:20)
[2018-08-11 04:31] LABS: Hematocrit 24.1 % (35.5-45.6); Hemoglobin 7.8 gm/dl (11.8-15.2)
[2018-08-11] MEDS: DIPRIVAN 10 MG/ML 1,000 MG/100 ML BOTTLE IV SCH ×2 (04:47→22:31)
[2018-08-11] MEDS: BROVANA NEBU IH SCH ×2 (09:14→20:42)
[2018-08-11] MEDS: PULMICORT IH SCH ×2 (09:14→20:41)
--- NOTE | 2018-08-11 09:18 | Progress Note ---
Assessment and Plan - Patient Problems (1) Acute respiratory failure Current Visit: Yes Status: Acute Qualifiers: Respiratory failure complication: hypoxia Qualified Code(s): J96.01 - Acute respiratory failure with hypoxia Plan to address problem: Pt stable. s/p trach/PEG - 08/11/18 - POD#1. No signs of complications to account for drop in hemoglobin. Very minimal bleeding during procedure. If there is a concern for bleeding from the PEG, would aspirate stomach and check for gross blood. No bleeding noted from PEG at time of surgery. Please call with questions. Subjective Date of service: 08/11/18 Patient Reports: Positive: other (no events related to trach/PEG) Objective Vital Signs - 12hr 08/10/18 08/10/18 08/10/18 21:30 22:00 22:30 Temperature Pulse Rate 92 H 90 92 H Pulse Rate [ Bilateral] Pulse Rate [ From Monitor] Respiratory 21 18 26 H Rate Respiratory Rate [Bilateral ] Blood Pressure 138/67 116/52 114/54 O2 Sat by Pulse 100 95 97 Oximetry 08/10/18 08/10/18 08/10/18 22:36 23:00 23:30 Temperature Pulse Rate 88 82 93 H Pulse Rate [ Bilateral] Pulse Rate [ From Monitor] Respiratory 20 20 Rate Respiratory Rate [Bilateral ] Blood Pressure 114/52 105/51 111/58 O2 Sat by Pulse 98 Oximetry 08/11/18 08/11/18 08/11/18 00:00 00:30 00:38 Temperature 100.0 F H Pulse Rate 79 77 77 Pulse Rate [ Bilateral] Pulse Rate [ 76 From Monitor] Respiratory 17 18 Rate Respiratory Rate [Bilateral ] Blood Pressure 98/49 100/50 103/52 O2 Sat by Pulse 100 Oximetry 08/11/18 08/11/18 08/11/18 01:00 01:30 02:00 Temperature Pulse Rate 77 76 77 Pulse Rate [ Bilateral] Pulse Rate [ From Monitor] Respiratory 18 18 20 Rate Respiratory Rate [Bilateral ] Blood Pressure 100/48 104/49 104/46 O2 Sat by Pulse 98 98 98 Oximetry 08/11/18 08/11/18 08/11/18 02:30 03:00 03:30 Temperature Pulse Rate 75 78 77 Pulse Rate [ Bilateral] Pulse Rate [ From Monitor] Respiratory 18 17 17 Rate Respiratory Rate [Bilateral ] Blood Pressure 99/50 101/48 98/49 O2 Sat by Pulse 97 99 97 Oximetry 08/11/18 08/11/18 08/11/18 03:45 04:00 04:30 Temperature 99.1 F Pulse Rate 75 72 78 Pulse Rate [ Bilateral] Pulse Rate [ 73 From Monitor] Respiratory 18 15 Rate Respiratory Rate [Bilateral ] Blood Pressure 99/51 95/46 106/52 O2 Sat by Pulse 99 97 95 Oximetry 08/11/18 08/11/18 08/11/18 05:00 05:30 06:00 Temperature Pulse Rate 74 72 72 Pulse Rate [ Bilateral] Pulse Rate [ From Monitor] Respiratory 20 19 20 Rate Respiratory Rate [Bilateral ] Blood Pressure 99/48 97/50 107/51 O2 Sat by Pulse 92 95 97 Oximetry 08/11/18 08/11/18 08/11/18 08:00 09:06 09:14 Temperature 100.9 F H Pulse Rate 82 Pulse Rate [ 83 Bilateral] Pulse Rate [ From Monitor] Respiratory 21 Rate Respiratory 12 Rate [Bilateral ] Blood Pressure 117/49 O2 Sat by Pulse 94 Oximetry - General physical appearance no distress, no pain - Neck no masses, trachea midline, other (Trach in place. No bleeding or hematoma formation) - Respiratory normal expansion, other (equal breath sounds) - Abdomen soft, distended (slight), other (PEG in place. No drainage. Tube feeds currently running. ) - Labs 08/11/18 04:17 08/09/18 03:52 - Imaging Chest x-ray: report reviewed, image reviewed
[2018-08-11] MEDS: PEPCID PO SCH ×2 (09:37→22:30)
[2018-08-11] MEDS: VITAMIN B-12 PO SCH (09:37)
[2018-08-11] MEDS: PRAVACHOL PO SCH (09:37)
[2018-08-11] MEDS: CORDARONE PO SCH ×2 (09:37→22:29)
[2018-08-11] MEDS: SODIUM CHLORIDE FLUSH SYRINGE 10 ML IV SCH ×2 (09:38→22:42)
[2018-08-11] MEDS: fentaNYL DRIP Premix 2,000 MCG/100 ML BAG IV SCH (11:26)
--- NOTE | 2018-08-11 11:27 | Progress Note ---
Assessment and Plan Cultures: 07/27/2018 tracheal aspirate culture: Pseudomonas aeruginosa, MSSA 07/28/2018 blood culture: 4 out of 4 bottles positive for Streptococcus anginosus 07/28/2018 fungal blood culture: In progress but no growth thus far 07/29/2018 urine culture: No growth 08/01/2018 blood culture: negative thus far A/P: 73-year-old male with COPD, peripheral vascular disease, hypertension, hyperlipidemia, seizure disorder admitted with: 1) Sepsis secondary to Streptococcus anginosus bacteremia: 4/4 bottles, present on admission. Source unclear. Patient does have evidence of pneumonia however sputum cultures not concordant and grew pseudomonas aeruginosa and MSSA. Reviewed cardiology note, REGAN was negative. Previously received Ceftriaxone and Vancomycin, followed by Cefepime, completed. 2) Acute respiratory failure secondary to congestive heart failure and pneumonia: completed IV cefepime x 10 days to cover both MSSA and Pseudomonas. now s/p trach and PEG. 3) CARLEE, present on admission, now resolved. 4) New fever today with leucocytosis: Unclear etiology. Will order CXR, UA, urine culture, blood cultures. Patient also dropped Hb, monitor off abx for now. Recs: new fever today, also dropped Hb Will order CXR, UA, urine culture, blood cultures x 2 along with CBC monitor off antibiotics. If patient develops any hemodynamic instability and another fever >101.5F, start empiric IV Cefepime and vancomycin Will follow. Dr. Mathur will be rounding tomorrow Rhea Ro MD [facility] C: [phone] O: [phone] F: [phone] Subjective Date of service: 08/11/18 Principal diagnosis: Acute hypoxemic respiratory failure; A-fib with RVR; Possible CHF; H/O DVT Interval history: More sleepy today. Remains on the vent via trach. No report of diarrhea per discussion with RN. Dropped Hb. Objective - Exam Narrative Exam: Physical Exam: Constitutional: drowsy, on vent Head, Ears, Nose: Normocephalic, atraumatic. External ears, nose normal Eyes: Conjunctivae/corneas clear. No icterus. No ptosis. Neck: trach + Oral:no thrush, no ulcers Cardiovascular: S1, S2 normal Respiratory: few scattered rhonchi, no crackles or wheeze GI: Soft, bowel sounds normal. No peritoneal signs. PEG tube + Musculoskeletal: trace pedal edema, no cyanosis. Skin: No rash or abscess Hem/Lymphatic: No palpable cervical or supraclavicular nodes. No lymphangitis Psych: no agitation Neurological: drowsy, on vent - Constitutional Vitals: Vital Signs Temp Pulse Resp BP Pulse Ox 100.9 F H 82 12 117/55 94 08/11/18 08:00 08/11/18 09:38 08/11/18 09:32 08/11/18 09:38 08/11/18 09:33 Temperature -Last 24 Hours Temperature 100.9 F Temperature 99.1 F Temperature 100.0 F Temperature 99.3 F Temperature 98.6 F Temperature 98.2 F Temperature 98.7 F - Labs CBC & Chem 7: 08/11/18 04:17 08/09/18 03:52 Labs: Abnormal lab results 08/10/18 08/10/18 08/11/18 Range/Units 17:12 21:17 00:54 Hgb (11.8-15.2) gm/dl Hct (35.5-45.6) % Heparin Anti-Xa Level 0.19 L (0.3-0.7) U.I./ml POC Glucose 110 H 109 H (70-105) 08/11/18 08/11/18 08/11/18 Range/Units 02:28 04:17 05:10 Hgb 7.8 L (11.8-15.2) gm/dl Hct 24.1 L D (35.5-45.6) % Heparin Anti-Xa Level (0.3-0.7) U.I./ml POC Glucose 124 H 150 H (70-105) 08/11/18 08/11/18 Range/Units 07:42 10:27 Hgb (11.8-15.2) gm/dl Hct (35.5-45.6) % Heparin Anti-Xa Level 0.20 L (0.3-0.7) U.I./ml POC Glucose 156 H (70-105)
--- NOTE | 2018-08-11 11:38 | Progress Note ---
Assessment and Plan Currently stable cardiac status. S/p trach and PEG. H/H noted to be trending downwards - monitor closely. Recommend d/c heparin gtt and initiate NOAC (Eliquis) when okay per general surgery. The patient has been seen in conjunction with Dr. JULIA Kearney who agrees with the assessment and plan of care. - Patient Problems (1) Atrial fibrillation with RVR Current Visit: Yes Status: Acute (2) Acute respiratory failure Current Visit: Yes Status: Acute Qualifiers: Respiratory failure complication: hypoxia Qualified Code(s): J96.01 - Acute respiratory failure with hypoxia (3) COPD (chronic obstructive pulmonary disease) Current Visit: Yes Status: Chronic (4) Pneumonia Current Visit: Yes Status: Acute (5) Nonobstructive atherosclerosis of coronary artery Current Visit: Yes Status: Chronic (6) Hypertension Current Visit: Yes Status: Chronic Qualifiers: Hypertension type: essential hypertension Qualified Code(s): I10 - Essential (primary) hypertension (7) Hyperlipemia Current Visit: Yes Status: Chronic Qualifiers: Hyperlipidemia type: Mixed hyperlipidemia (8) Peripheral vascular disease Current Visit: Yes Status: Chronic (9) CARLEE (acute kidney injury) Current Visit: Yes Status: Resolved (10) Bacteremia Current Visit: Yes Status: Acute (11) Sepsis Current Visit: Yes Status: Acute Qualifiers: Sepsis type: sepsis due to unspecified organism Qualified Code(s): A41.9 - Sepsis, unspecified organism Subjective Date of service: 08/11/18 Principal diagnosis: Acute hypoxemic respiratory failure; A-fib with RVR; Possible CHF; H/O DVT Interval history: pt trached, sedated but arousable, in SR with freq PACs on telemetry. heparin gtt infusing. Objective Last Vital Signs Temp 100.9 F H 08/11/18 08:00 Pulse 82 08/11/18 09:38 Resp 12 08/11/18 09:32 BP 117/55 08/11/18 09:38 Pulse Ox 94 08/11/18 09:33 - Physical Examination General: No Apparent Distress, Other (trached, sedated) HEENT: Positive: EOMI, Normocephaly, Mucus Membranes Moist Neck: Positive: neck supple, trachea midline. Negative: JVD/HJR Cardiac: Positive: Reg Rate and Rhythm, S1/S2 Lungs: Positive: Decreased Breath Sounds Neuro: Positive: Other (trached, sedated) Abdomen: Positive: Soft, Active Bowel Sounds Skin: Positive: Clear. Negative: Rash, Wound Musculoskeletal: No Fluid Collection, Normal Range of Motion Extremities: Present: upper extr. pulses, lower extr. pulses. Absent: edema - Labs and Meds CBC 08/11/18 Range/Units 04:17 Hgb 7.8 L (11.8-15.2) gm/dl Hct 24.1 L D (35.5-45.6) % Plt Count 244 (140-440) K/mm3 - Imaging and Cardiology EKG: report reviewed, image reviewed Echo: report reviewed ( 07/27/2018 EF 60-65%, asymmetric septal hypertrophy, mild TR. 05/2017 showed EF 55-60%, grade 1 diastolic dysfunction, mild TR, RVSP 22mmHg. 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 Treat medically. ) - Telemetry EKG Rhythm: Sinus Rhythm - Allied health notes Allied health notes reviewed: PT
--- NOTE | 2018-08-11 12:23 | Progress Note ---
Assessment and Plan Assessment and plan: Sepsis. Blood cultures reveal Streptococcus anginosus. Continue antibiotics per ID--completed cefepime. Patient with no fever today. ID to perform CXR, UA, urine culture, blood cultures x 2 along with CBC Acute kidney injury. Etiology secondary to above. Continue to monitor creatinine. Left lower lobe pneumonia. Continue antibiotics and follow chest x-ray. Sputum culture revealed Pseudomonas and MSSA Acute hypoxemic respiratory failure. Etiology secondary to above. Continue on mechanical ventilation and weaning per pulmonary. Follow-up serial chest x-ray and ABGs. Pt is scheduled for tracheostomy and PEG tube placement this am Atrial fibrillation. Continue amiodarone and diltiazem. Cardiology following. REGAN negative Acute renal failure. Etiology likely secondary to sepsis/ATN. Renal ultrasound unremarkable. COPD exacerbation. Continue bronchodilators/nebulizers. IV steroids. Hypertension. Resume antihypertensive medications as needed. Hyperlipidemia. Peripheral vascular disease. The high probability of a clinically significant, sudden or life threatening d eterioration of the [respiratory] system(s) required my full and direct attention, intervention and personal management. The aggregate critical care time was [32] minutes. This time is in addition to time spent performing reported procedures but includes the following: [x] Data Review and interpretation [x] Patient assessment and monitoring of vital signs [x] Documentation [x] Medication orders and management History Interval history: 73 YO Male with H/O COPD, PVD, HTN, HLD, Seizure Disorder, Skin Cancer presents to ED for evaluation. Pt states that he has experienced shortness and chest palpitations over the past 2 days with worsening symptoms over the past 1 day. Pt acknowledges decreased exercise tolerance, as well as dyspnea on exertion. Pt was seen and evaluated by his floral designer today and was sent to [facility] ED for further care and evaluation. Pt denies fever, chills, leg swelling, calf pain, CP with deep breathing, hemoptysis, Prolonged air/car travel, or immobility, Back Pain, Syncope, Lightheadedness, recent ill contacts, unintentional weight loss, night sweats, or bone pain. Pt seen and evaluated in ED and found to have Atrial Fib with RVR refractory to cardizem drip, but improved with Amiodarone Drip, Acute Hypoxemic Respiratory Failure, SIRS. Pt admitted to ICU. The patient later after admission had further decompensation with respiratory distress. Patient reportedly was satting 60-70% on a nonrebreather and had to be emergently intubated. The patient remains intubated on mechanical ventilation Hospitalist Physical - Constitutional Vitals: Temp Pulse Resp BP Pulse Ox 101.7 F H 82 24 108/50 91 08/11/18 12:00 08/11/18 12:00 08/11/18 12:00 08/11/18 12:00 08/11/18 12:00 General appearance: Present: no acute distress, other (intubated on mechanical ventilation) - EENT Eyes: Present: PERRL, EOM intact ENT: hearing intact, clear oral mucosa, dentition normal - Neck Neck: Present: supple, normal ROM - Respiratory Respiratory effort: normal Respiratory: bilateral: CTA - Cardiovascular Rhythm: regular Heart Sounds: Present: S1 & S2. Absent: gallop, rub - Extremities Extremities: no ischemia, No edema, Full ROM - Abdominal General gastrointestinal: soft, non-tender, non-distended, normal bowel sounds - Integumentary Integumentary: Present: clear, warm, dry - Neurologic Neurologic: CNII-XII intact, moves all extremities Results - Labs CBC & Chem 7: 08/11/18 04:17 08/09/18 03:52 Labs: Laboratory Last Values WBC 15.9 K/mm3 (4.5-11.0) H 08/09/18 03:52 RBC 2.87 M/mm3 (3.65-5.03) L 08/09/18 03:52 Hgb 7.8 gm/dl (11.8-15.2) L 08/11/18 04:17 Hct 24.1 % (35.5-45.6) L D 08/11/18 04:17 MCV 107 fl (84-94) H 08/09/18 03:52 MCH 34 pg (28-32) H 08/09/18 03:52 MCHC 31 % (32-34) L 08/09/18 03:52 RDW 17.8 % (13.2-15.2) H 08/09/18 03:52 Plt Count 244 K/mm3 (140-440) 08/11/18 04:17 Lymph % (Auto) 3.9 % (13.4-35.0) L 08/09/18 03:52 [place] % (Auto) 8.1 % (0.0-7.3) H 08/09/18 03:52 Eos % (Auto) 0.8 % (0.0-4.3) 08/09/18 03:52 Baso % (Auto) 0.1 % (0.0-1.8) 08/09/18 03:52 Lymph # 0.6 K/mm3 (1.2-5.4) L 08/09/18 03:52 [place] # 1.3 K/mm3 (0.0-0.8) H 08/09/18 03:52 Eos # 0.1 K/mm3 (0.0-0.4) 08/09/18 03:52 Baso # 0.0 K/mm3 (0.0-0.1) 08/09/18 03:52 Add Manual Diff Complete 08/08/18 02:09 Total Counted 100 08/08/18 02:09 Seg Neutrophils % 87.1 % (40.0-70.0) H 08/09/18 03:52 Seg Neuts % (Manual) 73.0 % (40.0-70.0) H 08/08/18 02:09 Band Neutrophils % 5.0 % 08/08/18 02:09 Lymphocytes % (Manual) 9.0 % (13.4-35.0) L 08/08/18 02:09 Reactive Lymphs % (Man) 0 % 08/08/18 02:09 Monocytes % (Manual) 10.0 % (0.0-7.3) H 08/08/18 02:09 Eosinophils % (Manual) 0 % (0.0-4.3) 08/08/18 02:09 Basophils % (Manual) 0 % (0.0-1.8) 08/08/18 02:09 Metamyelocytes % 3.0 % 08/08/18 02:09 Myelocytes % 0 % 08/08/18 02:09 Promyelocytes % 0 % 08/08/18 02:09 Blast Cells % 0 % 08/08/18 02:09 Nucleated RBC % Not Reportable 08/08/18 02:09 Seg Neutrophils # 13.9 K/mm3 (1.8-7.7) H 08/09/18 03:52 Seg Neutrophils # Man 10.7 K/mm3 (1.8-7.7) H 08/08/18 02:09 Band Neutrophils # 0.7 K/mm3 08/08/18 02:09 Lymphocytes # (Manual) 1.3 K/mm3 (1.2-5.4) 08/08/18 02:09 Abs React Lymphs (Man) 0.0 K/mm3 08/08/18 02:09 Monocytes # (Manual) 1.5 K/mm3 (0.0-0.8) H 08/08/18 02:09 Eosinophils # (Manual) 0.0 K/mm3 (0.0-0.4) 08/08/18 02:09 Basophils # (Manual) 0.0 K/mm3 (0.0-0.1) 08/08/18 02:09 Metamyelocytes # 0.4 K/mm3 08/08/18 02:09 Myelocytes # 0.0 K/mm3 08/08/18 02:09 Promyelocytes # 0.0 K/mm3 08/08/18 02:09 Blast Cells # 0.0 K/mm3 08/08/18 02:09 Pathologist Review 07/28/18 06:01 WBC Morphology Not Reportable 08/08/18 02:09 Hypersegmented Neuts Not Reportable 08/08/18 02:09 Hyposegmented Neuts Not Reportable 08/08/18 02:09 Hypogranular Neuts Not Reportable 08/08/18 02:09 Smudge Cells Not Reportable 08/08/18 02:09 Toxic Granulation Not Reportable 08/08/18 02:09 Toxic Vacuolation Not Reportable 08/08/18 02:09 Dohle Bodies Not Reportable 08/08/18 02:09 Pelger-Huet Anomaly Not Reportable 08/08/18 02:09 Janiya Rods Not Reportable 08/08/18 02:09 Platelet Estimate Appears normal 08/08/18 02:09 Clumped Platelets Not Reportable 08/08/18 02:09 Plt Clumps, EDTA Not Reportable 08/08/18 02:09 Large Platelets Not Reportable 08/08/18 02:09 Giant Platelets Not Reportable 08/08/18 02:09 Platelet Satelliting Not Reportable 08/08/18 02:09 Plt Morphology Comment Not Reportable 08/08/18 02:09 RBC Morphology Not Reportable 08/08/18 02:09 Dimorphic RBCs Not Reportable 08/08/18 02:09 Polychromasia Not Reportable 08/08/18 02:09 Hypochromasia Few 08/08/18 02:09 Poikilocytosis Not Reportable 08/08/18 02:09 Anisocytosis 1+ 08/08/18 02:09 Microcytosis Not Reportable 08/08/18 02:09 Macrocytosis Not Reportable 08/08/18 02:09 Spherocytes Not Reportable 08/08/18 02:09 Pappenheimer Bodies Not Reportable 08/08/18 02:09 Sickle Cells Not Reportable 08/08/18 02:09 Target Cells Not Reportable 08/08/18 02:09 Tear Drop Cells Not Reportable 08/08/18 02:09 Ovalocytes Not Reportable 08/08/18 02:09 Stomatocytes Few 08/08/18 02:09 Helmet Cells Not Reportable 08/08/18 02:09 Lr-[place] Bodies Not Reportable 08/08/18 02:09 [place] Rings Not Reportable 08/08/18 02:09 [place] Cells Not Reportable 08/08/18 02:09 Bite Cells Not Reportable 08/08/18 02:09 Crenated Cell Not Reportable 08/08/18 02:09 Elliptocytes Not Reportable 08/08/18 02:09 Acanthocytes (Spur) Not Reportable 08/08/18 02:09 Rouleaux Not Reportable 08/08/18 02:09 Hemoglobin C Crystals Not Reportable 08/08/18 02:09 Schistocytes Not Reportable 08/08/18 02:09 Malaria parasites Not Reportable 08/08/18 02:09 Jigar Bodies Not Reportable 08/08/18 02:09 Hem Pathologist Commnt No 08/08/18 02:09 PT 13.4 Sec. (12.2-14.9) 08/07/18 15:08 INR 0.98 (0.87-1.13) 08/07/18 15:08 APTT 23.2 Sec. (24.2-36.6) L 08/07/18 15:08 D-Dimer 798.17 ng/mlDDU (0-234) H 07/27/18 15:52 Heparin Anti-Xa Level 0.20 U.I./ml (0.3-0.7) L 08/11/18 07:42 POC ABG pH 7.416 (7.35-7.45) 08/10/18 04:49 POC ABG pCO2 59.9 (35-45) H 08/10/18 04:49 POC ABG pO2 59 (80-105) L 08/10/18 04:49 POC ABG HCO3 38.5 08/10/18 04:49 POC ABG Total CO2 40 08/10/18 04:49 POC ABG O2 Sat 90 08/10/18 04:49 POC ABG Base Excess 14 08/10/18 04:49 FiO2 40 % 08/10/18 04:49 Sodium 142 mmol/L (137-145) 08/09/18 03:52 Potassium 4.3 mmol/L (3.6-5.0) 08/09/18 03:52 Chloride 99.2 mmol/L (98-107) 08/09/18 03:52 Carbon Dioxide 39 mmol/L (22-30) H 08/09/18 03:52 Anion Gap 8 mmol/L 08/09/18 03:52 BUN 26 mg/dL (9-20) H 08/09/18 03:52 Creatinine 0.5 mg/dL (0.8-1.5) L 08/09/18 03:52 Estimated GFR > 60 ml/min 08/09/18 03:52 BUN/Creatinine Ratio 52 % 08/09/18 03:52 Glucose 128 mg/dL (75-100) H 08/09/18 03:52 POC Glucose 156 (70-105) H 08/11/18 10:27 Lactic Acid 1.30 mmol/L (0.7-2.0) 08/03/18 16:48 Calcium 8.7 mg/dL (8.4-10.2) 08/09/18 03:52 Phosphorus 2.80 mg/dL (2.5-4.5) 08/06/18 05:17 Magnesium 2.30 mg/dL (1.7-2.3) 08/06/18 05:17 Total Bilirubin 1.30 mg/dL (0.1-1.2) H 07/27/18 12:59 AST 15 units/L (5-40) 07/27/18 12:59 ALT 16 units/L (7-56) 07/27/18 12:59 Alkaline Phosphatase 62 units/L (35-129) 07/27/18 12:59 Troponin T < 0.010 ng/mL (0.00-0.029) 07/27/18 12:59 C-Reactive Protein 2.30 mg/dL (0.00-1.30) H 08/03/18 16:48 NT-Pro-B Natriuret Pep 3913 pg/mL (0-900) H 07/27/18 12:59 Total Protein 6.2 g/dL (6.3-8.2) L 07/27/18 12:59 Albumin 3.6 g/dL (3.9-5) L 07/27/18 12:59 Albumin/Globulin Ratio 1.4 % 07/27/18 12:59 Triglycerides 64 mg/dL (2-149) 08/08/18 14:02 TSH 1.180 mlU/mL (0.270-4.200) 07/27/18 15:52 Free T4 1.28 ng/dL (0.76-1.46) 07/27/18 15:52 Urine Color Yellow (Yellow) 07/29/18 09:24 Urine Turbidity Cloudy (Clear) 07/29/18 09:24 Urine pH 5.0 (5.0-7.0) 07/29/18 09:24 Ur Specific [place] 1.017 (1.003-1.030) 07/29/18 09:24 Urine Protein 30 mg/dl mg/dL (Negative) 07/29/18 09:24 Urine Glucose (UA) Neg mg/dL (Negative) 07/29/18 09:24 Urine Ketones Neg mg/dL (Negative) 07/29/18 09:24 Urine Blood Mod (Negative) 07/29/18 09:24 Urine Nitrite Neg (Negative) 07/29/18 09:24 Urine Bilirubin Neg (Negative) 07/29/18 09:24 Urine Urobilinogen < 2.0 mg/dL (<2.0) 07/29/18 09:24 Ur Leukocyte Esterase Mod (Negative) 07/29/18 09:24 Urine WBC (Auto) 29.0 /HPF (0.0-6.0) H 07/29/18 09:24 Urine RBC (Auto) 7.0 /HPF (0.0-6.0) 07/29/18 09:24 U Epithel Cells (Auto) 2.0 /HPF (0-13.0) 07/29/18 09:24 Urine Bacteria (Auto) 1+ /HPF (Negative) 07/29/18 09:24 Urine Mucus Few /HPF 07/29/18 09:24 Urine Yeast (Budding) 1+ /HPF 07/29/18 09:24 Urine Creatinine 72.3 mg/dL (0.1-20.0) H 07/29/18 09:24 Urine Sodium 12 mmol/L 07/29/18 09:24 Random Vancomycin 9.2 ug/mL (0-40.0) 07/29/18 04:21 Nutrition/Malnutrition Assess - Dietary Evaluation Nutrition/Malnutrition Findings: Nutrition Notes Start: 07/28/18 10:54 Freq: Status: Active Protocol: Document 08/10/18 15:05 OL (Rec: 08/10/18 15:09 OL [id number]) Nutrition Notes Initial or Follow up Reassessment Current Diagnoses Acute Kidney Injury COPD Sepsis Hypertension Heart Failure Respiratory Failure Other Pertinent Diagnosis Hx of Skin Cancer Current Diet Nepro at 50ml/hr Labs/Tests BUN 26 Cr 0.5 Medications propofol at 5.062mL/hr (113.64 lipid kcal ) Height 5 ft 8 in Weight 84.1 kg Kyle Body Weight (lbs) 154.0 BMI 28.1 Subjective/Other Information Nepro on hold at time of visit 2/2 pt. having PEG placed. TF to restart later this afternoon. Per RN, pt. had been tolerating TF well at goal rate prior to PEG placement. Burn Absent Trauma Absent #1 Nutrition Diagnoses Inadequate oral intake Diagnosis Progress(for reassessment Continues documentation) Is patient on ventilator? Yes Is Patient Ambulatory and/or Out of Bed No REE-([facility]-confined to bed) 1224.312 Calculation Used for Recommendations [facility] Additional Notes protein (1.2-2g/kg): 101-168g fluid: 1mL/kcal Nutrition Intervention Change Diet Order: Continue TF Nutrition Support: Nepro at 50mL/hr 250 mL free water flush q4h or per MD. Kcal 2,160 Protein (gm) 97 Fluid (mL) 872 Goal #1 TF tolerance and rate Goal #2 Meet at least 80% of kcal needs and 80-100% of protein needs. Follow-Up By: 08/16/18 Additional Comments Peg and Trach done. Patient remain in stable condition
--- NOTE | 2018-08-11 12:24 | Progress Note ---
Assessment and Plan Acute hypoxemic respiratory failure, on mechanical ventilatory support. Atrial fibrillation with rapid ventricular response. Possible congestive heart failure with an acute exacerbation. 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 Elevated D-dimer. Leukocytosis. Sepsis syndrome with hypotension and fevers this morning. Chronic obstructive lung disease with an acute exacerbation. Hypernatremia Peripheral vascular disease. Mixed acidosis, respiratory and metabolic. Acute kidney injury. Lactic acidosis. Elevated BNP level of 3913. History of hypertension. History of arthritis. (Discussed possible need for tracheostomy with caregiver in room who stated that she will talk to his sister as no or kids) - continue daily SBT's as tolerated (should do better post trach) - ABG after 2 hours on PSV today - continue seroquel but increase dose slightly - repeat CBC in am +/- transfusion - reduce free water (started for hypernatremia) - continue Lantus insulin with SSI for glycemic control - tapered off solumedrol - VAP bundle addressed - titrate sedatives for RASS 0 to -1 - PT/OT evaluation ongoing (unable to treat today also) - continue enteral nutrition as tolerated - continue supplemental oxygen to keep sats >/= 90% - aspiration precautions - continue bronchodilators with pulmonary hygiene per RT - continue therapeutic anticoagulation - continue stress ulcer prophylaxis - continue Antibiotics to complete course - continue mobility protocol for pressure ulcer prevention - continue pother care per attending / other consultants .... re-evaluate in am & prn ... care plan discussed with patient and caregiver in room FULL CODE STATUS CONDITION: CRITICAL The high probability of a clinically significant, sudden or life-threatening deterioration of the [respiratory, cardiovascular, renal] system(s) required my full and direct attention, intervention and personal management. The aggregate critical care time was [36] minutes without overlap. Time includes spent on; [x] Data Review and interpretation [x] Patient assessment and monitoring of vital signs [x] Documentation [x] Medication orders and management Subjective Date of service: 08/11/18 Principal diagnosis: Acute hypoxemic respiratory failure; A-fib with RVR; Possible CHF; H/O DVT Interval history: Patient is seen today for: Acute hypoxemic respiratory failure on MVS; Atrial fibrillation with RVR; Possible congestive heart failure with an acute exacerbation; History of deep venous thrombosis; Elevated D-dimer. Seen and examined at bedside; 24hour events reviewed; nursing and respiratory care staff consulted; no adverse overnight events reported to me; remains on MVS; remains ventilator dependent; s/p trach and PEG and tolerating PSV trial now; he is responsive and denies chest pain or palpitations Objective Vital Signs - 12hr 08/11/18 08/11/18 08/11/18 00:30 00:38 01:00 Temperature Pulse Rate 77 77 77 Pulse Rate [ Bilateral] Pulse Rate [ From Monitor] Respiratory 18 18 Rate Respiratory Rate [Bilateral ] Blood Pressure 100/50 103/52 100/48 O2 Sat by Pulse 98 Oximetry 08/11/18 08/11/18 08/11/18 01:30 02:00 02:30 Temperature Pulse Rate 76 77 75 Pulse Rate [ Bilateral] Pulse Rate [ From Monitor] Respiratory 18 20 18 Rate Respiratory Rate [Bilateral ] Blood Pressure 104/49 104/46 99/50 O2 Sat by Pulse 98 98 97 Oximetry 08/11/18 08/11/18 08/11/18 03:00 03:30 03:45 Temperature Pulse Rate 78 77 75 Pulse Rate [ Bilateral] Pulse Rate [ From Monitor] Respiratory 17 17 Rate Respiratory Rate [Bilateral ] Blood Pressure 101/48 98/49 99/51 O2 Sat by Pulse 99 97 99 Oximetry 08/11/18 08/11/18 08/11/18 04:00 04:30 05:00 Temperature 99.1 F Pulse Rate 72 78 74 Pulse Rate [ Bilateral] Pulse Rate [ 73 From Monitor] Respiratory 18 15 20 Rate Respiratory Rate [Bilateral ] Blood Pressure 95/46 106/52 99/48 O2 Sat by Pulse 97 95 92 Oximetry 08/11/18 08/11/18 08/11/18 05:30 06:00 06:30 Temperature Pulse Rate 72 72 73 Pulse Rate [ Bilateral] Pulse Rate [ From Monitor] Respiratory 19 20 19 Rate Respiratory Rate [Bilateral ] Blood Pressure 97/50 107/51 108/50 O2 Sat by Pulse 95 97 97 Oximetry 08/11/18 08/11/18 08/11/18 07:00 07:30 08:00 Temperature 100.9 F H Pulse Rate 72 81 77 Pulse Rate [ Bilateral] Pulse Rate [ From Monitor] Respiratory 21 21 21 Rate Respiratory Rate [Bilateral ] Blood Pressure 109/50 110/50 110/49 O2 Sat by Pulse 96 93 94 Oximetry 08/11/18 08/11/18 08/11/18 08:30 09:00 09:06 Temperature Pulse Rate 78 78 82 Pulse Rate [ Bilateral] Pulse Rate [ From Monitor] Respiratory 25 H 21 21 Rate Respiratory Rate [Bilateral ] Blood Pressure 109/53 112/51 117/49 O2 Sat by Pulse 95 96 94 Oximetry 08/11/18 08/11/18 08/11/18 09:14 09:30 09:32 Temperature Pulse Rate 77 Pulse Rate [ 83 80 Bilateral] Pulse Rate [ From Monitor] Respiratory 9 L Rate Respiratory 12 12 Rate [Bilateral ] Blood Pressure 98/51 O2 Sat by Pulse 94 Oximetry 08/11/18 08/11/18 08/11/18 09:33 09:38 10:00 Temperature Pulse Rate 84 82 84 Pulse Rate [ Bilateral] Pulse Rate [ From Monitor] Respiratory 24 Rate Respiratory Rate [Bilateral ] Blood Pressure 115/52 117/55 115/51 O2 Sat by Pulse 94 92 Oximetry 08/11/18 08/11/18 08/11/18 10:30 11:00 11:30 Temperature Pulse Rate 83 85 90 Pulse Rate [ Bilateral] Pulse Rate [ From Monitor] Respiratory 29 H 31 H 31 H Rate Respiratory Rate [Bilateral ] Blood Pressure 111/52 111/52 119/52 O2 Sat by Pulse 90 92 91 Oximetry 08/11/18 08/11/18 11:51 12:00 Temperature 101.7 F H Pulse Rate 81 82 Pulse Rate [ Bilateral] Pulse Rate [ From Monitor] Respiratory 24 Rate Respiratory Rate [Bilateral ] Blood Pressure 106/50 108/50 O2 Sat by Pulse 90 91 Oximetry Constitutional: appears uncomfortable, other (elderly looking CM, normocephalic and atraumatic with normal respiratory effort) Eyes: non-icteric ENT: oropharynx moist, other (ETT 23 cm SUHAS) Neck: supple, no lymphadenopathy, no JVD, other (No thyromegaly) Effort: mildly labored Ascultation: Bilateral: diminished breath sounds, rhonchi Percussion: Bilateral: not dull Cardiovascular: irregular rhythm, other (+ systolic murmur) Gastrointestinal: hypoactive bowel sounds, soft, non-tender, non-distended, other (No palpable HSM) Integumentary: rash, other (upper extremity edema) Extremities: no cyanosis, pink and warm, pulses normal, no ischemia or petechiae Neurologic: non-focal exam (grossly), pupils equal and round, other (moves all extemities) Psychiatric: mood appropriate, affect normal CBC and BMP: 08/11/18 Unknown 08/11/18 Unknown ABG, PT/INR, D-dimer: ABG POC ABG pH 7.416 (7.35-7.45) 08/10/18 04:49 POC ABG pCO2 59.9 (35-45) H 08/10/18 04:49 POC ABG pO2 59 (80-105) L 08/10/18 04:49 POC ABG HCO3 38.5 08/10/18 04:49 POC ABG Total CO2 40 08/10/18 04:49 POC ABG O2 Sat 90 08/10/18 04:49 PT/INR, D-dimer PT 13.4 Sec. (12.2-14.9) 08/07/18 15:08 INR 0.98 (0.87-1.13) 08/07/18 15:08 D-Dimer 798.17 ng/mlDDU (0-234) H 07/27/18 15:52 Abnormal lab findings: Abnormal Labs 07/27/18 07/27/18 07/27/18 12:59 12:59 12:59 WBC 15.8 H RBC Hgb Hct MCV 104 H MCH 34 H MCHC RDW 16.3 H Lymph % (Auto) Roberts % (Auto) Lymph # Roberts # Seg Neutrophils % Seg Neuts % (Manual) 88.0 H Lymphocytes % (Manual) 3.0 L Monocytes % (Manual) Nucleated RBC % Seg Neutrophils # Seg Neutrophils # Man 13.9 H Lymphocytes # (Manual) 0.5 L Monocytes # (Manual) PT 17.0 H INR 1.34 H APTT D-Dimer Heparin Anti-Xa Level POC ABG pH POC ABG pCO2 POC ABG pO2 Sodium Potassium Chloride Carbon Dioxide 21 L BUN 38 H Creatinine 1.6 H Glucose POC Glucose Lactic Acid Calcium Phosphorus Total Bilirubin 1.30 H C-Reactive Protein NT-Pro-B Natriuret Pep 3913 H Total Protein 6.2 L Albumin 3.6 L Urine WBC (Auto) Urine Creatinine 07/27/18 07/27/18 07/27/18 15:52 16:12 17:09 WBC RBC Hgb Hct MCV MCH MCHC RDW Lymph % (Auto) Roberts % (Auto) Lymph # Roberts # Seg Neutrophils % Seg Neuts % (Manual) Lymphocytes % (Manual) Monocytes % (Manual) Nucleated RBC % Seg Neutrophils # Seg Neutrophils # Man Lymphocytes # (Manual) Monocytes # (Manual) PT 16.0 H INR 1.24 H APTT D-Dimer 798.17 H Heparin Anti-Xa Level POC ABG pH POC ABG pCO2 POC ABG pO2 Sodium Potassium Chloride Carbon Dioxide BUN Creatinine Glucose POC Glucose Lactic Acid 5.00 H* Calcium Phosphorus Total Bilirubin C-Reactive Protein NT-Pro-B Natriuret Pep Total Protein Albumin Urine WBC (Auto) Urine Creatinine 07/27/18 07/27/18 07/27/18 17:59 18:07 21:31 WBC RBC Hgb Hct MCV MCH MCHC RDW Lymph % (Auto) Roberts % (Auto) Lymph # Roberts # Seg Neutrophils % Seg Neuts % (Manual) Lymphocytes % (Manual) Monocytes % (Manual) Nucleated RBC % Seg Neutrophils # Seg Neutrophils # Man Lymphocytes # (Manual) Monocytes # (Manual) PT INR APTT D-Dimer Heparin Anti-Xa Level POC ABG pH 7.344 L POC ABG pCO2 POC ABG pO2 36 L Sodium Potassium Chloride Carbon Dioxide BUN Creatinine Glucose POC Glucose Lactic Acid 5.20 H* 5.00 H* Calcium Phosphorus Total Bilirubin C-Reactive Protein NT-Pro-B Natriuret Pep Total Protein Albumin Urine WBC (Auto) Urine Creatinine 07/27/18 07/27/18 07/27/18 21:57 22:42 23:26 WBC RBC Hgb Hct MCV MCH MCHC RDW Lymph % (Auto) Roberts % (Auto) Lymph # Roberts # Seg Neutrophils % Seg Neuts % (Manual) Lymphocytes % (Manual) Monocytes % (Manual) Nucleated RBC % Seg Neutrophils # Seg Neutrophils # Man Lymphocytes # (Manual) Monocytes # (Manual) PT INR APTT D-Dimer Heparin Anti-Xa Level POC ABG pH 7.199 L POC ABG pCO2 62.0 H POC ABG pO2 Sodium Potassium Chloride Carbon Dioxide BUN Creatinine Glucose POC Glucose Lactic Acid 4.70 H* 5.00 H* Calcium Phosphorus Total Bilirubin C-Reactive Protein NT-Pro-B Natriuret Pep Total Protein Albumin Urine WBC (Auto) Urine Creatinine 07/28/18 07/28/18 07/28/18 00:45 05:40 05:58 WBC RBC Hgb Hct MCV MCH MCHC RDW Lymph % (Auto) Roberts % (Auto) Lymph # Roberts # Seg Neutrophils % Seg Neuts % (Manual) Lymphocytes % (Manual) Monocytes % (Manual) Nucleated RBC % Seg Neutrophils # Seg Neutrophils # Man Lymphocytes # (Manual) Monocytes # (Manual) PT INR APTT D-Dimer Heparin Anti-Xa Level 0.11 L POC ABG pH 7.186 L POC ABG pCO2 60.1 H POC ABG pO2 68 L Sodium Potassium Chloride Carbon Dioxide BUN Creatinine Glucose POC Glucose Lactic Acid 4.70 H* Calcium Phosphorus Total Bilirubin C-Reactive Protein NT-Pro-B Natriuret Pep Total Protein Albumin Urine WBC (Auto) Urine Creatinine 07/28/18 07/28/18 07/28/18 06:01 06:01 07:19 WBC 12.5 H RBC 3.51 L Hgb 11.5 L Hct MCV 104 H MCH 33 H MCHC RDW 16.6 H Lymph % (Auto) Roberts % (Auto) Lymph # Roberts # Seg Neutrophils % Seg Neuts % (Manual) Lymphocytes % (Manual) Monocytes % (Manual) Nucleated RBC % Seg Neutrophils # Seg Neutrophils # Man Lymphocytes # (Manual) Monocytes # (Manual) PT INR APTT D-Dimer Heparin Anti-Xa Level 0.14 L POC ABG pH POC ABG pCO2 POC ABG pO2 Sodium 135 L Potassium 5.1 H Chloride 95.0 L Carbon Dioxide 21 L BUN 54 H Creatinine 2.6 H D Glucose POC Glucose Lactic Acid Calcium Phosphorus Total Bilirubin C-Reactive Protein NT-Pro-B Natriuret Pep Total Protein Albumin Urine WBC (Auto) Urine Creatinine 07/28/18 07/28/18 07/28/18 07:19 09:20 11:06 WBC RBC Hgb Hct MCV MCH MCHC RDW Lymph % (Auto) Roberts % (Auto) Lymph # Roberts # Seg Neutrophils % Seg Neuts % (Manual) Lymphocytes % (Manual) Monocytes % (Manual) Nucleated RBC % Seg Neutrophils # Seg Neutrophils # Man Lymphocytes # (Manual) Monocytes # (Manual) PT INR APTT D-Dimer Heparin Anti-Xa Level POC ABG pH 7.266 L POC ABG pCO2 49.7 H POC ABG pO2 74 L Sodium Potassium Chloride Carbon Dioxide BUN Creatinine Glucose POC Glucose Lactic Acid 4.00 H* 3.90 H* Calcium Phosphorus Total Bilirubin C-Reactive Protein NT-Pro-B Natriuret Pep Total Protein Albumin Urine WBC (Auto) Urine Creatinine 07/28/18 07/28/1807/28/18 15:06 20:45 23:36 WBC RBC Hgb Hct MCV MCH MCHC RDW Lymph % (Auto) Roberts % (Auto) Lymph # Roberts # Seg Neutrophils % Seg Neuts % (Manual) Lymphocytes % (Manual) Monocytes % (Manual) Nucleated RBC % Seg Neutrophils # Seg Neutrophils # Man Lymphocytes # (Manual) Monocytes # (Manual) PT INR APTT D-Dimer Heparin Anti-Xa Level 0.15 L POC ABG pH POC ABG pCO2 POC ABG pO2 Sodium 134 L Potassium 5.2 H Chloride Carbon Dioxide BUN 58 H Creatinine 2.1 H Glucose 110 H POC Glucose 125 H Lactic Acid Calcium Phosphorus Total Bilirubin C-Reactive Protein NT-Pro-B Natriuret Pep Total Protein Albumin Urine WBC (Auto) Urine Creatinine 07/29/18 07/29/18 07/29/18 01:12 04:21 04:21 WBC RBC 3.21 L Hgb 10.8 L Hct 33.0 L MCV 103 H MCH 34 H MCHC RDW 16.4 H Lymph % (Auto) Roberts % (Auto) Lymph # Roberts # Seg Neutrophils % Seg Neuts % (Manual) Lymphocytes % (Manual) 11.0 L Monocytes % (Manual) Nucleated RBC % Seg Neutrophils # Seg Neutrophils # Man Lymphocytes # (Manual) 1.0 L Monocytes # (Manual) PT INR APTT D-Dimer Heparin Anti-Xa Level 0.21 L POC ABG pH POC ABG pCO2 POC ABG pO2 Sodium Potassium Chloride Carbon Dioxide BUN 48 H Creatinine 1.6 H Glucose 166 H POC Glucose Lactic Acid Calcium Phosphorus Total Bilirubin C-Reactive Protein NT-Pro-B Natriuret Pep Total Protein Albumin Urine WBC (Auto) Urine Creatinine 07/29/18 07/29/18 07/29/18 05:19 08:16 09:24 WBC RBC Hgb Hct MCV MCH MCHC RDW Lymph % (Auto) Roberts % (Auto) Lymph # Roberts # Seg Neutrophils % Seg Neuts % (Manual) Lymphocytes % (Manual) Monocytes % (Manual) Nucleated RBC % Seg Neutrophils # Seg Neutrophils # Man Lymphocytes # (Manual) Monocytes # (Manual) PT INR APTT D-Dimer Heparin Anti-Xa Level 0.25 L POC ABG pH POC ABG pCO2 POC ABG pO2 Sodium Potassium Chloride Carbon Dioxide BUN Creatinine Glucose POC Glucose 181 H Lactic Acid Calcium Phosphorus Total Bilirubin C-Reactive Protein NT-Pro-B Natriuret Pep Total Protein Albumin Urine WBC (Auto) 29.0 H Urine Creatinine 07/29/18 07/29/18 07/29/18 09:24 10:00 15:03 WBC RBC Hgb Hct MCV MCH MCHC RDW Lymph % (Auto) Roberts % (Auto) Lymph # Roberts # Seg Neutrophils % Seg Neuts % (Manual) Lymphocytes % (Manual) Monocytes % (Manual) Nucleated RBC % Seg Neutrophils # Seg Neutrophils # Man Lymphocytes # (Manual) Monocytes # (Manual) PT INR APTT D-Dimer Heparin Anti-Xa Level POC ABG pH POC ABG pCO2 POC ABG pO2 Sodium Potassium Chloride Carbon Dioxide BUN Creatinine Glucose POC Glucose 195 H 167 H Lactic Acid Calcium Phosphorus Total Bilirubin C-Reactive Protein NT-Pro-B Natriuret Pep Total Protein Albumin Urine WBC (Auto) Urine Creatinine 72.3 H 07/29/18 07/29/18 07/30/18 17:51 21:32 01:38 WBC RBC Hgb Hct MCV MCH MCHC RDW Lymph % (Auto) Roberts % (Auto) Lymph # Roberts # Seg Neutrophils % Seg Neuts % (Manual) Lymphocytes % (Manual) Monocytes % (Manual) Nucleated RBC % Seg Neutrophils # Seg Neutrophils # Man Lymphocytes # (Manual) Monocytes # (Manual) PT INR APTT D-Dimer Heparin Anti-Xa Level POC ABG pH POC ABG pCO2 POC ABG pO2 Sodium Potassium Chloride Carbon Dioxide BUN Creatinine Glucose POC Glucose 167 H 217 H 194 H Lactic Acid Calcium Phosphorus Total Bilirubin C-Reactive Protein NT-Pro-B Natriuret Pep Total Protein Albumin Urine WBC (Auto) Urine Creatinine 07/30/18 07/30/18 07/30/18 03:21 05:13 10:18 WBC RBC Hgb Hct MCV MCH MCHC RDW Lymph % (Auto) Roberts % (Auto) Lymph # Roberts # Seg Neutrophils % Seg Neuts % (Manual) Lymphocytes % (Manual) Monocytes % (Manual) Nucleated RBC % Seg Neutrophils # Seg Neutrophils # Man Lymphocytes # (Manual) Monocytes # (Manual) PT INR APTT D-Dimer Heparin Anti-Xa Level POC ABG pH POC ABG pCO2 50.3 H POC ABG pO2 78 L Sodium Potassium Chloride Carbon Dioxide BUN 41 H Creatinine Glucose 202 H POC Glucose 151 H Lactic Acid Calcium Phosphorus Total Bilirubin C-Reactive Protein NT-Pro-B Natriuret Pep Total Protein Albumin Urine WBC (Auto) Urine Creatinine 07/30/18 07/30/18 07/30/18 11:29 16:28 18:12 WBC RBC Hgb Hct MCV MCH MCHC RDW Lymph % (Auto) Roberts % (Auto) Lymph # Roberts # Seg Neutrophils % Seg Neuts % (Manual) Lymphocytes % (Manual) Monocytes % (Manual) Nucleated RBC % Seg Neutrophils # Seg Neutrophils # Man Lymphocytes # (Manual) Monocytes # (Manual) PT INR APTT D-Dimer Heparin Anti-Xa Level POC ABG pH 7.326 L POC ABG pCO2 53.2 H POC ABG pO2 70 L Sodium Potassium Chloride Carbon Dioxide BUN Creatinine Glucose POC Glucose 247 H 212 H Lactic Acid Calcium Phosphorus Total Bilirubin C-Reactive Protein NT-Pro-B Natriuret Pep Total Protein Albumin Urine WBC (Auto) Urine Creatinine 07/30/18 07/30/18 07/31/18 20:08 21:52 01:59 WBC RBC Hgb Hct MCV MCH MCHC RDW Lymph % (Auto) Roberts % (Auto) Lymph # Roberts # Seg Neutrophils % Seg Neuts % (Manual) Lymphocytes % (Manual) Monocytes % (Manual) Nucleated RBC % Seg Neutrophils # Seg Neutrophils # Man Lymphocytes # (Manual) Monocytes # (Manual) PT INR APTT D-Dimer Heparin Anti-Xa Level POC ABG pH POC ABG pCO2 POC ABG pO2 Sodium Potassium Chloride Carbon Dioxide BUN Creatinine Glucose POC Glucose 205 H 215 H 242 H Lactic Acid Calcium Phosphorus Total Bilirubin C-Reactive Protein NT-Pro-B Natriuret Pep Total Protein Albumin Urine WBC (Auto) Urine Creatinine 07/31/18 07/31/18 07/31/18 03:14 03:14 04:55 WBC RBC Hgb 10.6 L Hct 33.2 L MCV MCH MCHC RDW Lymph % (Auto) Roberts % (Auto) Lymph # Roberts # Seg Neutrophils % Seg Neuts % (Manual) Lymphocytes % (Manual) Monocytes % (Manual) Nucleated RBC % Seg Neutrophils # Seg Neutrophils # Man Lymphocytes # (Manual) Monocytes # (Manual) PT INR APTT D-Dimer Heparin Anti-Xa Level POC ABG pH 7.331 L POC ABG pCO2 67.1 H POC ABG pO2 Sodium Potassium Chloride Carbon Dioxide BUN 36 H Creatinine 0.7 L Glucose 242 H POC Glucose Lactic Acid Calcium 10.3 H Phosphorus 2.30 L Total Bilirubin C-Reactive Protein NT-Pro-B Natriuret Pep Total Protein Albumin Urine WBC (Auto) Urine Creatinine 07/31/18 07/31/18 07/31/18 05:37 10:08 14:07 WBC RBC Hgb Hct MCV MCH MCHC RDW Lymph % (Auto) Roberts % (Auto) Lymph # Roberts # Seg Neutrophils % Seg Neuts % (Manual) Lymphocytes % (Manual) Monocytes % (Manual) Nucleated RBC % Seg Neutrophils # Seg Neutrophils # Man Lymphocytes # (Manual) Monocytes # (Manual) PT INR APTT D-Dimer Heparin Anti-Xa Level POC ABG pH POC ABG pCO2 POC ABG pO2 Sodium Potassium Chloride Carbon Dioxide BUN Creatinine Glucose POC Glucose 193 H 247 H 225 H Lactic Acid Calcium Phosphorus Total Bilirubin C-Reactive Protein NT-Pro-B Natriuret Pep Total Protein Albumin Urine WBC (Auto) Urine Creatinine 07/31/18 07/31/18 08/01/18 18:12 21:34 02:00 WBC RBC Hgb Hct MCV MCH MCHC RDW Lymph % (Auto) Roberts % (Auto) Lymph # Roberts # Seg Neutrophils % Seg Neuts % (Manual) Lymphocytes % (Manual) Monocytes % (Manual) Nucleated RBC % Seg Neutrophils # Seg Neutrophils # Man Lymphocytes # (Manual) Monocytes # (Manual) PT INR APTT D-Dimer Heparin Anti-Xa Level POC ABG pH POC ABG pCO2 POC ABG pO2 Sodium Potassium Chloride Carbon Dioxide BUN Creatinine Glucose POC Glucose 197 H 204 H 239 H Lactic Acid Calcium Phosphorus Total Bilirubin C-Reactive Protein NT-Pro-B Natriuret Pep Total Protein Albumin Urine WBC (Auto) Urine Creatinine 08/01/18 08/01/18 08/01/18 04:13 04:37 05:29 WBC RBC Hgb Hct MCV MCH MCHC RDW Lymph % (Auto) Roberts % (Auto) Lymph # Roberts # Seg Neutrophils % Seg Neuts % (Manual) Lymphocytes % (Manual) Monocytes % (Manual) Nucleated RBC % Seg Neutrophils # Seg Neutrophils # Man Lymphocytes # (Manual) Monocytes # (Manual) PT INR APTT D-Dimer Heparin Anti-Xa Level POC ABG pH 7.296 L POC ABG pCO2 81.9 H POC ABG pO2 190 H Sodium 150 H D Potassium Chloride Carbon Dioxide 37 H D BUN 37 H Creatinine 0.6 L Glucose 223 H POC Glucose 219 H Lactic Acid Calcium Phosphorus Total Bilirubin C-Reactive Protein NT-Pro-B Natriuret Pep Total Protein Albumin Urine WBC (Auto) Urine Creatinine 08/01/18 08/01/18 08/01/18 09:28 11:00 17:36 WBC RBC Hgb Hct MCV MCH MCHC RDW Lymph % (Auto) Roberts % (Auto) Lymph # Roberts # Seg Neutrophils % Seg Neuts % (Manual) Lymphocytes % (Manual) Monocytes % (Manual) Nucleated RBC % Seg Neutrophils # Seg Neutrophils # Man Lymphocytes # (Manual) Monocytes # (Manual) PT INR APTT D-Dimer Heparin Anti-Xa Level POC ABG pH POC ABG pCO2 61.2 H POC ABG pO2 69 L Sodium Potassium Chloride Carbon Dioxide BUN Creatinine Glucose POC Glucose 185 H 234 H Lactic Acid Calcium Phosphorus Total Bilirubin C-Reactive Protein NT-Pro-B Natriuret Pep Total Protein Albumin Urine WBC (Auto) Urine Creatinine 08/01/18 08/02/18 08/02/18 21:54 00:08 00:44 WBC RBC Hgb Hct MCV MCH MCHC RDW Lymph % (Auto) Roberts % (Auto) Lymph # Roberts # Seg Neutrophils % Seg Neuts % (Manual) Lymphocytes % (Manual) Monocytes % (Manual) Nucleated RBC % Seg Neutrophils # Seg Neutrophils # Man Lymphocytes # (Manual) Monocytes # (Manual) PT INR APTT D-Dimer Heparin Anti-Xa Level 0.77 H POC ABG pH POC ABG pCO2 66.4 H POC ABG pO2 64 L Sodium Potassium Chloride Carbon Dioxide BUN Creatinine Glucose POC Glucose 242 H Lactic Acid Calcium Phosphorus Total Bilirubin C-Reactive Protein NT-Pro-B Natriuret Pep Total Protein Albumin Urine WBC (Auto) Urine Creatinine 08/02/18 08/02/18 08/02/18 02:46 04:45 04:45 WBC RBC Hgb 10.7 L Hct 33.7 L MCV MCH MCHC RDW Lymph % (Auto) Roberts % (Auto) Lymph # Roberts # Seg Neutrophils % Seg Neuts % (Manual) Lymphocytes % (Manual) Monocytes % (Manual) Nucleated RBC % Seg Neutrophils # Seg Neutrophils # Man Lymphocytes # (Manual) Monocytes # (Manual) PT INR APTT D-Dimer Heparin Anti-Xa Level POC ABG pH POC ABG pCO2 POC ABG pO2 Sodium 152 H Potassium Chloride 108.1 H Carbon Dioxide 39 H BUN 38 H Creatinine 0.6 L Glucose 226 H POC Glucose 206 H Lactic Acid Calcium Phosphorus Total Bilirubin C-Reactive Protein NT-Pro-B Natriuret Pep Total Protein Albumin Urine WBC (Auto) Urine Creatinine 08/02/18 08/02/18 08/02/18 05:31 09:46 14:23 WBC RBC Hgb Hct MCV MCH MCHC RDW Lymph % (Auto) Roberts % (Auto) Lymph # Roberts # Seg Neutrophils % Seg Neuts % (Manual) Lymphocytes % (Manual) Monocytes % (Manual) Nucleated RBC % Seg Neutrophils # Seg Neutrophils # Man Lymphocytes # (Manual) Monocytes # (Manual) PT INR APTT D-Dimer Heparin Anti-Xa Level 0.91 H POC ABG pH POC ABG pCO2 POC ABG pO2 Sodium Potassium Chloride Carbon Dioxide BUN Creatinine Glucose POC Glucose 214 H 210 H Lactic Acid Calcium Phosphorus Total Bilirubin C-Reactive Protein NT-Pro-B Natriuret Pep Total Protein Albumin Urine WBC (Auto) Urine Creatinine 08/02/18 08/02/18 08/02/18 15:46 17:56 21:50 WBC RBC Hgb Hct MCV MCH MCHC RDW Lymph % (Auto) Roberts % (Auto) Lymph # Roberts # Seg Neutrophils % Seg Neuts % (Manual) Lymphocytes % (Manual) Monocytes % (Manual) Nucleated RBC % Seg Neutrophils # Seg Neutrophils # Man Lymphocytes # (Manual) Monocytes # (Manual) PT INR APTT D-Dimer Heparin Anti-Xa Level 0.99 H POC ABG pH POC ABG pCO2 POC ABG pO2 Sodium Potassium Chloride Carbon Dioxide BUN Creatinine Glucose POC Glucose 252 H 222 H Lactic Acid Calcium Phosphorus Total Bilirubin C-Reactive Protein NT-Pro-B Natriuret Pep Total Protein Albumin Urine WBC (Auto) Urine Creatinine 08/03/18 08/03/18 08/03/18 02:18 05:21 05:25 WBC RBC Hgb Hct MCV MCH MCHC RDW Lymph % (Auto) Roberts % (Auto) Lymph # Roberts # Seg Neutrophils % Seg Neuts % (Manual) Lymphocytes % (Manual) Monocytes % (Manual) Nucleated RBC % Seg Neutrophils # Seg Neutrophils # Man Lymphocytes # (Manual) Monocytes # (Manual) PT INR APTT D-Dimer Heparin Anti-Xa Level POC ABG pH POC ABG pCO2 POC ABG pO2 Sodium 151 H Potassium Chloride 107.3 H Carbon Dioxide 37 H BUN 42 H Creatinine 0.6 L Glucose 263 H POC Glucose 241 H 241 H Lactic Acid Calcium Phosphorus Total Bilirubin C-Reactive Protein NT-Pro-B Natriuret Pep Total Protein Albumin Urine WBC (Auto) Urine Creatinine 08/03/18 08/03/18 08/03/18 09:11 12:20 14:33 WBC RBC Hgb Hct MCV MCH MCHC RDW Lymph % (Auto) Roberts % (Auto) Lymph # Roberts # Seg Neutrophils % Seg Neuts % (Manual) Lymphocytes % (Manual) Monocytes % (Manual) Nucleated RBC % Seg Neutrophils # Seg Neutrophils # Man Lymphocytes # (Manual) Monocytes # (Manual) PT INR APTT D-Dimer Heparin Anti-Xa Level POC ABG pH POC ABG pCO2 POC ABG pO2 Sodium Potassium Chloride Carbon Dioxide BUN Creatinine Glucose POC Glucose 272 H 234 H 247 H Lactic Acid Calcium Phosphorus Total Bilirubin C-Reactive Protein NT-Pro-B Natriuret Pep Total Protein Albumin Urine WBC (Auto) Urine Creatinine 08/03/18 08/03/18 08/04/18 16:48 21:21 01:56 WBC RBC Hgb Hct MCV MCH MCHC RDW Lymph % (Auto) Roberts % (Auto) Lymph # Roberts # Seg Neutrophils % Seg Neuts % (Manual) Lymphocytes % (Manual) Monocytes % (Manual) Nucleated RBC % Seg Neutrophils # Seg Neutrophils # Man Lymphocytes # (Manual) Monocytes # (Manual) PT INR APTT D-Dimer Heparin Anti-Xa Level POC ABG pH POC ABG pCO2 POC ABG pO2 Sodium Potassium Chloride Carbon Dioxide BUN Creatinine Glucose POC Glucose 180 H 189 H Lactic Acid Calcium Phosphorus Total Bilirubin C-Reactive Protein 2.30 H NT-Pro-B Natriuret Pep Total Protein Albumin Urine WBC (Auto) Urine Creatinine 08/04/18 08/04/18 08/04/18 01:58 05:05 05:05 WBC 25.5 H RBC 3.31 L Hgb 10.8 L Hct 34.1 L MCV 103 H MCH 33 H MCHC RDW 16.0 H Lymph % (Auto) Roberts % (Auto) Lymph # Roberts # Seg Neutrophils % Seg Neuts % (Manual) Lymphocytes % (Manual) 8.0 L Monocytes % (Manual) Nucleated RBC % 2.0 H Seg Neutrophils # Seg Neutrophils # Man 16.3 H Lymphocytes # (Manual) Monocytes # (Manual) 1.0 H PT INR APTT D-Dimer Heparin Anti-Xa Level 0.79 H POC ABG pH POC ABG pCO2 POC ABG pO2 Sodium 148 H Potassium Chloride Carbon Dioxide 36 H BUN 35 H Creatinine 0.6 L Glucose 160 H POC Glucose Lactic Acid Calcium Phosphorus Total Bilirubin C-Reactive Protein NT-Pro-B Natriuret Pep Total Protein Albumin Urine WBC (Auto) Urine Creatinine 08/04/18 08/04/18 08/04/18 05:24 05:33 08:46 WBC RBC Hgb Hct MCV MCH MCHC RDW Lymph % (Auto) Roberts % (Auto) Lymph # Roberts # Seg Neutrophils % Seg Neuts % (Manual) Lymphocytes % (Manual) Monocytes % (Manual) Nucleated RBC % Seg Neutrophils # Seg Neutrophils # Man Lymphocytes # (Manual) Monocytes # (Manual) PT INR APTT D-Dimer Heparin Anti-Xa Level 0.76 H POC ABG pH POC ABG pCO2 65.7 H POC ABG pO2 63 L Sodium Potassium Chloride Carbon Dioxide BUN Creatinine Glucose POC Glucose 159 H Lactic Acid Calcium Phosphorus Total Bilirubin C-Reactive Protein NT-Pro-B Natriuret Pep Total Protein Albumin Urine WBC (Auto) Urine Creatinine 08/04/18 08/04/18 08/04/18 09:12 15:38 18:20 WBC RBC Hgb Hct MCV MCH MCHC RDW Lymph % (Auto) Roberts % (Auto) Lymph # Roberts # Seg Neutrophils % Seg Neuts % (Manual) Lymphocytes % (Manual) Monocytes % (Manual) Nucleated RBC % Seg Neutrophils # Seg Neutrophils # Man Lymphocytes # (Manual) Monocytes # (Manual) PT INR APTT D-Dimer Heparin Anti-Xa Level POC ABG pH POC ABG pCO2 POC ABG pO2 Sodium Potassium Chloride Carbon Dioxide BUN Creatinine Glucose POC Glucose 140 H 267 H 252 H Lactic Acid Calcium Phosphorus Total Bilirubin C-Reactive Protein NT-Pro-B Natriuret Pep Total Protein Albumin Urine WBC (Auto) Urine Creatinine 08/04/18 08/05/18 08/05/18 21:17 02:51 04:36 WBC RBC Hgb Hct MCV MCH MCHC RDW Lymph % (Auto) Roberts % (Auto) Lymph # Roberts # Seg Neutrophils % Seg Neuts % (Manual) Lymphocytes % (Manual) Monocytes % (Manual) Nucleated RBC % Seg Neutrophils # Seg Neutrophils # Man Lymphocytes # (Manual) Monocytes # (Manual) PT INR APTT D-Dimer Heparin Anti-Xa Level POC ABG pH POC ABG pCO2 POC ABG pO2 Sodium Potassium Chloride Carbon Dioxide BUN Creatinine Glucose POC Glucose 181 H 240 H 255 H Lactic Acid Calcium Phosphorus Total Bilirubin C-Reactive Protein NT-Pro-B Natriuret Pep Total Protein Albumin Urine WBC (Auto) Urine Creatinine 12/21/18 12/21/18 12/21/18 04:55 10:21 12:39 WBC 21.8 H RBC 3.18 L Hgb 10.3 L Hct 32.6 L MCV 103 H MCH 33 H MCHC RDW 16.3 H Lymph % (Auto) Roberts % (Auto) Lymph # Roberts # Seg Neutrophils % Seg Neuts % (Manual) 88.0 H Lymphocytes % (Manual) 4.0 L Monocytes % (Manual) Nucleated RBC % Seg Neutrophils # Seg Neutrophils # Man 19.2 H Lymphocytes # (Manual) 0.9 L Monocytes # (Manual) PT INR APTT D-Dimer Heparin Anti-Xa Level POC ABG pH 7.506 H POC ABG pCO2 56.0 H POC ABG pO2 63 L Sodium Potassium Chloride Carbon Dioxide BUN Creatinine Glucose POC Glucose 227 H Lactic Acid Calcium Phosphorus Total Bilirubin C-Reactive Protein NT-Pro-B Natriuret Pep Total Protein Albumin Urine WBC (Auto) Urine Creatinine 08/05/18 08/05/18 08/05/18 12:39 14:10 17:30 WBC RBC Hgb Hct MCV MCH MCHC RDW Lymph % (Auto) Roberts % (Auto) Lymph # Roberts # Seg Neutrophils % Seg Neuts % (Manual) Lymphocytes % (Manual) Monocytes % (Manual) Nucleated RBC % Seg Neutrophils # Seg Neutrophils # Man Lymphocytes # (Manual) Monocytes # (Manual) PT INR APTT D-Dimer Heparin Anti-Xa Level < 0.10 L POC ABG pH POC ABG pCO2 POC ABG pO2 Sodium Potassium Chloride 96.8 L Carbon Dioxide 38 H BUN 36 H Creatinine 0.6 L Glucose 218 H POC Glucose 221 H Lactic Acid Calcium Phosphorus Total Bilirubin C-Reactive Protein NT-Pro-B Natriuret Pep Total Protein Albumin Urine WBC (Auto) Urine Creatinine 08/05/18 08/05/18 08/06/18 18:32 23:32 02:26 WBC RBC Hgb Hct MCV MCH MCHC RDW Lymph % (Auto) Roberts % (Auto) Lymph # Roberts # Seg Neutrophils % Seg Neuts % (Manual) Lymphocytes % (Manual) Monocytes % (Manual) Nucleated RBC % Seg Neutrophils # Seg Neutrophils # Man Lymphocytes # (Manual) Monocytes # (Manual) PT INR APTT D-Dimer Heparin Anti-Xa Level POC ABG pH POC ABG pCO2 POC ABG pO2 Sodium Potassium Chloride Carbon Dioxide BUN Creatinine Glucose POC Glucose 253 H 215 H 227 H Lactic Acid Calcium Phosphorus Total Bilirubin C-Reactive Protein NT-Pro-B Natriuret Pep Total Protein Albumin Urine WBC (Auto) Urine Creatinine 08/06/18 08/06/18 08/06/18 05:17 05:17 05:32 WBC 18.9 H RBC 3.06 L Hgb 10.2 L Hct 31.3 L MCV 102 H MCH 33 H MCHC RDW 16.1 H Lymph % (Auto) Roberts % (Auto) Lymph # Roberts # Seg Neutrophils % Seg Neuts % (Manual) Lymphocytes % (Manual) Monocytes % (Manual) Nucleated RBC % Seg Neutrophils # Seg Neutrophils # Man Lymphocytes # (Manual) Monocytes # (Manual) PT INR APTT D-Dimer Heparin Anti-Xa Level POC ABG pH 7.468 H POC ABG pCO2 59.5 H POC ABG pO2 64 L Sodium Potassium Chloride Carbon Dioxide 37 H BUN 37 H Creatinine 0.5 L Glucose 226 H POC Glucose Lactic Acid Calcium Phosphorus Total Bilirubin C-Reactive Protein NT-Pro-B Natriuret Pep Total Protein Albumin Urine WBC (Auto) Urine Creatinine 08/06/18 08/06/18 08/06/18 10:11 15:03 17:48 WBC RBC Hgb Hct MCV MCH MCHC RDW Lymph % (Auto) Roberts % (Auto) Lymph # Roberts # Seg Neutrophils % Seg Neuts % (Manual) Lymphocytes % (Manual) Monocytes % (Manual) Nucleated RBC % Seg Neutrophils # Seg Neutrophils # Man Lymphocytes # (Manual) Monocytes # (Manual) PT INR APTT D-Dimer Heparin Anti-Xa Level POC ABG pH POC ABG pCO2 POC ABG pO2 Sodium Potassium Chloride Carbon Dioxide BUN Creatinine Glucose POC Glucose 207 H 229 H 188 H Lactic Acid Calcium Phosphorus Total Bilirubin C-Reactive Protein NT-Pro-B Natriuret Pep Total Protein Albumin Urine WBC (Auto) Urine Creatinine 08/06/18 08/07/18 08/07/18 22:53 01:55 05:30 WBC RBC Hgb Hct MCV MCH MCHC RDW Lymph % (Auto) Roberts % (Auto) Lymph # Roberts # Seg Neutrophils % Seg Neuts % (Manual) Lymphocytes % (Manual) Monocytes % (Manual) Nucleated RBC % Seg Neutrophils # Seg Neutrophils # Man Lymphocytes # (Manual) Monocytes # (Manual) PT INR APTT D-Dimer Heparin Anti-Xa Level POC ABG pH POC ABG pCO2 69.6 H POC ABG pO2 64 L Sodium Potassium Chloride Carbon Dioxide BUN Creatinine Glucose POC Glucose 146 H 143 H Lactic Acid Calcium Phosphorus Total Bilirubin C-Reactive Protein NT-Pro-B Natriuret Pep Total Protein Albumin Urine WBC (Auto) Urine Creatinine 08/07/18 08/07/18 08/07/18 09:59 14:16 15:08 WBC RBC Hgb 10.3 L Hct 32.2 L MCV MCH MCHC RDW Lymph % (Auto) Roberts % (Auto) Lymph # Roberts # Seg Neutrophils % Seg Neuts % (Manual) Lymphocytes % (Manual) Monocytes % (Manual) Nucleated RBC % Seg Neutrophils # Seg Neutrophils # Man Lymphocytes # (Manual) Monocytes # (Manual) PT INR APTT D-Dimer Heparin Anti-Xa Level POC ABG pH POC ABG pCO2 POC ABG pO2 Sodium Potassium Chloride Carbon Dioxide BUN Creatinine Glucose POC Glucose 188 H 223 H Lactic Acid Calcium Phosphorus Total Bilirubin C-Reactive Protein NT-Pro-B Natriuret Pep Total Protein Albumin Urine WBC (Auto) Urine Creatinine 08/07/18 08/07/18 08/07/18 15:08 17:39 22:04 WBC RBC Hgb Hct MCV MCH MCHC RDW Lymph % (Auto) Roberts % (Auto) Lymph # Roberts # Seg Neutrophils % Seg Neuts % (Manual) Lymphocytes % (Manual) Monocytes % (Manual) Nucleated RBC % Seg Neutrophils # Seg Neutrophils # Man Lymphocytes # (Manual) Monocytes # (Manual) PT INR APTT 23.2 L D-Dimer Heparin Anti-Xa Level POC ABG pH POC ABG pCO2 POC ABG pO2 Sodium Potassium Chloride Carbon Dioxide BUN Creatinine Glucose POC Glucose 208 H 163 H Lactic Acid Calcium Phosphorus Total Bilirubin C-Reactive Protein NT-Pro-B Natriuret Pep Total Protein Albumin Urine WBC (Auto) Urine Creatinine 08/07/18 08/08/18 08/08/18 22:30 01:57 02:09 WBC 14.6 H RBC 2.88 L Hgb 9.5 L Hct 29.9 L MCV 104 H MCH 33 H MCHC RDW 16.8 H Lymph % (Auto) Roberts % (Auto) Lymph # Roberts # Seg Neutrophils % Seg Neuts % (Manual) 73.0 H Lymphocytes % (Manual) 9.0 L Monocytes % (Manual) 10.0 H Nucleated RBC % Seg Neutrophils # Seg Neutrophils # Man 10.7 H Lymphocytes # (Manual) Monocytes # (Manual) 1.5 H PT INR APTT D-Dimer Heparin Anti-Xa Level 0.25 L POC ABG pH POC ABG pCO2 POC ABG pO2 Sodium Potassium Chloride Carbon Dioxide BUN Creatinine Glucose POC Glucose 120 H Lactic Acid Calcium Phosphorus Total Bilirubin C-Reactive Protein NT-Pro-B Natriuret Pep Total Protein Albumin Urine WBC (Auto) Urine Creatinine 08/08/18 08/08/18 08/08/18 02:09 04:58 05:19 WBC RBC Hgb Hct MCV MCH MCHC RDW Lymph % (Auto) Roberts % (Auto) Lymph # Roberts # Seg Neutrophils % Seg Neuts % (Manual) Lymphocytes % (Manual) Monocytes % (Manual) Nucleated RBC % Seg Neutrophils # Seg Neutrophils # Man Lymphocytes # (Manual) Monocytes # (Manual) PT INR APTT D-Dimer Heparin Anti-Xa Level POC ABG pH 7.461 H POC ABG pCO2 57.3 H POC ABG pO2 62 L Sodium Potassium Chloride Carbon Dioxide 39 H BUN 29 H Creatinine 0.5 L Glucose 124 H POC Glucose 139 H Lactic Acid Calcium Phosphorus Total Bilirubin C-Reactive Protein NT-Pro-B Natriuret Pep Total Protein Albumin Urine WBC (Auto) Urine Creatinine 08/08/18 08/08/18 08/08/18 10:22 14:52 16:12 WBC RBC Hgb Hct MCV MCH MCHC RDW Lymph % (Auto) Roberts % (Auto) Lymph # Roberts # Seg Neutrophils % Seg Neuts % (Manual) Lymphocytes % (Manual) Monocytes % (Manual) Nucleated RBC % Seg Neutrophils # Seg Neutrophils # Man Lymphocytes # (Manual) Monocytes # (Manual) PT INR APTT D-Dimer Heparin Anti-Xa Level POC ABG pH POC ABG pCO2 POC ABG pO2 Sodium Potassium Chloride Carbon Dioxide BUN Creatinine Glucose POC Glucose 169 H 149 H 136 H Lactic Acid Calcium Phosphorus Total Bilirubin C-Reactive Protein NT-Pro-B Natriuret Pep Total Protein Albumin Urine WBC (Auto) Urine Creatinine 08/09/18 08/09/18 08/09/18 02:26 03:52 03:52 WBC 15.9 H RBC 2.87 L Hgb 9.6 L Hct 30.7 L MCV 107 H MCH 34 H MCHC 31 L RDW 17.8 H Lymph % (Auto) 3.9 L Roberts % (Auto) 8.1 H Lymph # 0.6 L Roberts # 1.3 H Seg Neutrophils % 87.1 H Seg Neuts % (Manual) Lymphocytes % (Manual) Monocytes % (Manual) Nucleated RBC % Seg Neutrophils # 13.9 H Seg Neutrophils # Man Lymphocytes # (Manual) Monocytes # (Manual) PT INR APTT D-Dimer Heparin Anti-Xa Level 0.25 L POC ABG pH POC ABG pCO2 POC ABG pO2 Sodium Potassium Chloride Carbon Dioxide BUN Creatinine Glucose POC Glucose 126 H Lactic Acid Calcium Phosphorus Total Bilirubin C-Reactive Protein NT-Pro-B Natriuret Pep Total Protein Albumin Urine WBC (Auto) Urine Creatinine 08/09/18 08/09/18 08/09/18 03:52 05:34 06:48 WBC RBC Hgb Hct MCV MCH MCHC RDW Lymph % (Auto) Roberts % (Auto) Lymph # Roberts # Seg Neutrophils % Seg Neuts % (Manual) Lymphocytes % (Manual) Monocytes % (Manual) Nucleated RBC % Seg Neutrophils # Seg Neutrophils # Man Lymphocytes # (Manual) Monocytes # (Manual) PT INR APTT D-Dimer Heparin Anti-Xa Level POC ABG pH POC ABG pCO2 57.5 H POC ABG pO2 58 L Sodium Potassium Chloride Carbon Dioxide 39 H BUN 26 H Creatinine 0.5 L Glucose 128 H POC Glucose 171 H Lactic Acid Calcium Phosphorus Total Bilirubin C-Reactive Protein NT-Pro-B Natriuret Pep Total Protein Albumin Urine WBC (Auto) Urine Creatinine 08/09/18 08/09/18 08/09/18 09:28 09:36 13:44 WBC RBC Hgb Hct MCV MCH MCHC RDW Lymph % (Auto) Roberts % (Auto) Lymph # Roberts # Seg Neutrophils % Seg Neuts % (Manual) Lymphocytes % (Manual) Monocytes % (Manual) Nucleated RBC % Seg Neutrophils # Seg Neutrophils # Man Lymphocytes # (Manual) Monocytes # (Manual) PT INR APTT D-Dimer Heparin Anti-Xa Level 0.26 L POC ABG pH POC ABG pCO2 POC ABG pO2 Sodium Potassium Chloride Carbon Dioxide BUN Creatinine Glucose POC Glucose 183 H 184 H Lactic Acid Calcium Phosphorus Total Bilirubin C-Reactive Protein NT-Pro-B Natriuret Pep Total Protein Albumin Urine WBC (Auto) Urine Creatinine 08/09/18 08/10/18 08/10/18 17:55 04:49 05:20 WBC RBC Hgb Hct MCV MCH MCHC RDW Lymph % (Auto) Roberts % (Auto) Lymph # Roberts # Seg Neutrophils % Seg Neuts % (Manual) Lymphocytes % (Manual) Monocytes % (Manual) Nucleated RBC % Seg Neutrophils # Seg Neutrophils # Man Lymphocytes # (Manual) Monocytes # (Manual) PT INR APTT D-Dimer Heparin Anti-Xa Level POC ABG pH POC ABG pCO2 59.9 H POC ABG pO2 59 L Sodium Potassium Chloride Carbon Dioxide BUN Creatinine Glucose POC Glucose 148 H 59 L Lactic Acid Calcium Phosphorus Total Bilirubin C-Reactive Protein NT-Pro-B Natriuret Pep Total Protein Albumin Urine WBC (Auto) Urine Creatinine 08/10/18 08/10/18 08/10/18 05:53 17:12 21:17 WBC RBC Hgb Hct MCV MCH MCHC RDW Lymph % (Auto) Roberts % (Auto) Lymph # Roberts # Seg Neutrophils % Seg Neuts % (Manual) Lymphocytes % (Manual) Monocytes % (Manual) Nucleated RBC % Seg Neutrophils # Seg Neutrophils # Man Lymphocytes # (Manual) Monocytes # (Manual) PT INR APTT D-Dimer Heparin Anti-Xa Level POC ABG pH POC ABG pCO2 POC ABG pO2 Sodium Potassium Chloride Carbon Dioxide BUN Creatinine Glucose POC Glucose 128 H 110 H 109 H Lactic Acid Calcium Phosphorus Total Bilirubin C-Reactive Protein NT-Pro-B Natriuret Pep Total Protein Albumin Urine WBC (Auto) Urine Creatinine 08/11/18 08/11/18 08/11/18 00:54 02:28 04:17 WBC RBC Hgb 7.8 L Hct 24.1 L D MCV MCH MCHC RDW Lymph % (Auto) Roberts % (Auto) Lymph # Roberts # Seg Neutrophils % Seg Neuts % (Manual) Lymphocytes % (Manual) Monocytes % (Manual) Nucleated RBC % Seg Neutrophils # Seg Neutrophils # Man Lymphocytes # (Manual) Monocytes # (Manual) PT INR APTT D-Dimer Heparin Anti-Xa Level 0.19 L POC ABG pH POC ABG pCO2 POC ABG pO2 Sodium Potassium Chloride Carbon Dioxide BUN Creatinine Glucose POC Glucose 124 H Lactic Acid Calcium Phosphorus Total Bilirubin C-Reactive Protein NT-Pro-B Natriuret Pep Total Protein Albumin Urine WBC (Auto) Urine Creatinine 08/11/18 08/11/18 08/11/18 05:10 07:42 10:27 WBC RBC Hgb Hct MCV MCH MCHC RDW Lymph % (Auto) Roberts % (Auto) Lymph # Roberts # Seg Neutrophils % Seg Neuts % (Manual) Lymphocytes % (Manual) Monocytes % (Manual) Nucleated RBC % Seg Neutrophils # Seg Neutrophils # Man Lymphocytes # (Manual) Monocytes # (Manual) PT INR APTT D-Dimer Heparin Anti-Xa Level 0.20 L POC ABG pH POC ABG pCO2 POC ABG pO2 Sodium Potassium Chloride Carbon Dioxide BUN Creatinine Glucose POC Glucose 150 H 156 H Lactic Acid Calcium Phosphorus Total Bilirubin C-Reactive Protein NT-Pro-B Natriuret Pep Total Protein Albumin Urine WBC (Auto) Urine Creatinine Allied health notes reviewed: PT
[2018-08-11] MEDS: TYLENOL FEEDTUBE PRN (12:41)
--- NOTE | 2018-08-11 13:09 | XRay Report ---
AP CHEST: HISTORY: Fever on ventilator Tracheostomy is unchanged since 08/10/18. Heart size remains within normal limits. Pulmonary venous congestion has decreased and is near normal. Mild bibasilar atelectatic changes are suspected but no obvious infiltrate. Pleural thickening at the right apex is unchanged. IMPRESSION: No acute cardiopulmonary process is identified. Decreased pulmonary venous congestion since yesterday's exam. Mild bibasilar atelectasis.
[2018-08-11 13:17] LABS: Bacteria,Urine 1+ /HPF (Negative); Bilirubin,Urine NEG (Negative); Blood,Urine NEG (Negative); Color,Urine Yellow (Yellow); Mucus,Urine FEW /HPF; Protein,Urine <15 mg/dL mg/dL (Negative)
[2018-08-11 14:22] LABS: Basophils % (Auto) 0.3 % (0.0-1.8); Eosinophils % (Auto) 0.3 % (0.0-4.3); Hematocrit 25.7 % (35.5-45.6); Hemoglobin 8.2 gm/dl (11.8-15.2); Lymphocytes # (Auto) 0.6 K/mm3 (1.2-5.4); Lymphocytes % (Auto) 5.1 % (13.4-35.0); Mean Corpuscular HGB Conc 32 % (32-34); Mean Corpuscular Volume 103 fl (84-94); Monocytes # (Auto) 1.2 K/mm3 (0.0-0.8); Monocytes % (Auto) 9.5 % (0.0-7.3); Platelet Count 259 K/mm3 (140-440)
[2018-08-11 14:32] LABS: BUN/Creatinine Ratio 32; Blood Urea Nitrogen 16 mg/dL (9-20); Calcium 8.4 mg/dL (8.4-10.2); Hemolysis Index 1
[2018-08-11] MEDS: LANTUS SUB-Q SCH (22:29)
[2018-08-12] MEDS: CARDIZEM PO SCH ×6 (01:13→20:05)
[2018-08-12] MEDS: HumaLOG SUB-Q SCH ×7 (03:01→22:21)
[2018-08-12] MEDS: HEPARIN/ 0.45% NACL-25,000 UNIT/500 ML 25,000 UNIT/500 ML BAG IV SCH (07:13)
[2018-08-12] MEDS: PULMICORT IH SCH ×2 (08:02→20:20)
[2018-08-12] MEDS: BROVANA NEBU IH SCH ×2 (08:02→20:20)
[2018-08-12] MEDS: PRAVACHOL PO SCH (09:17)
[2018-08-12] MEDS: TYLENOL FEEDTUBE PRN ×2 (09:17→16:52)
[2018-08-12] MEDS: PEPCID PO SCH ×2 (09:18→22:19)
[2018-08-12] MEDS: VITAMIN B-12 PO SCH (09:18)
[2018-08-12] MEDS: CORDARONE PO SCH ×2 (09:18→22:19)
[2018-08-12] MEDS: SODIUM CHLORIDE FLUSH SYRINGE 10 ML IV SCH ×2 (09:19→22:23)
--- NOTE | 2018-08-12 11:32 | Progress Note ---
Assessment and Plan Acute hypoxemic respiratory failure, on mechanical ventilatory support. Atrial fibrillation with rapid ventricular response. Possible congestive heart failure with an acute exacerbation. 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 Elevated D-dimer. Leukocytosis. Sepsis syndrome with hypotension and fevers this morning. Chronic obstructive lung disease with an acute exacerbation. Hypernatremia Peripheral vascular disease. Mixed acidosis, respiratory and metabolic. Acute kidney injury. Lactic acidosis. Elevated BNP level of 3913. History of hypertension. History of arthritis. - continue daily SBT's as tolerated - ABG prn at this point - continue seroquel but increased dose slightly - reduce free water (started for hypernatremia) - continue Lantus insulin with SSI for glycemic control - tapered off solumedrol - VAP bundle addressed - titrate sedatives for RASS 0 to -1 - PT/OT evaluation ongoing (unable to treat today also) - continue enteral nutrition as tolerated - continue supplemental oxygen to keep sats >/= 90% - aspiration precautions - continue bronchodilators with pulmonary hygiene per RT - continue therapeutic anticoagulation - continue stress ulcer prophylaxis - continue Antibiotics to complete course - continue mobility protocol for pressure ulcer prevention - continue pother care per attending / other consultants .... re-evaluate in am & prn ... care plan discussed with patient and caregiver in room FULL CODE STATUS CONDITION: CRITICAL The high probability of a clinically significant, sudden or life-threatening deterioration of the [respiratory, cardiovascular, renal] system(s) required my full and direct attention, intervention and personal management. The aggregate critical care time was [32] minutes without overlap. Time includes spent on; [x] Data Review and interpretation [x] Patient assessment and monitoring of vital signs [x] Documentation [x] Medication orders and management Subjective Date of service: 08/12/18 Principal diagnosis: Acute hypoxemic respiratory failure; A-fib with RVR; Possible CHF; H/O DVT Interval history: Patient is seen today for: Acute hypoxemic respiratory failure on MVS; Atrial fibrillation with RVR; Possible congestive heart failure with an acute exacerbation; History of deep venous thrombosis; Elevated D-dimer. 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 Objective Vital Signs - 12hr 08/11/18 08/12/18 08/12/18 23:44 00:00 00:30 Temperature Pulse Rate 82 79 76 Pulse Rate [ Bilateral] Pulse Rate [ 79 From Monitor] Respiratory 21 21 21 Rate Respiratory Rate [Bilateral ] Blood Pressure 112/53 98/48 96/47 O2 Sat by Pulse 93 93 92 Oximetry O2 Sat by Pulse Oximetry [ Assessment] 08/12/18 08/12/18 08/12/18 01:00 01:30 01:45 Temperature Pulse Rate 76 76 75 Pulse Rate [ Bilateral] Pulse Rate [ From Monitor] Respiratory 22 19 22 Rate Respiratory Rate [Bilateral ] Blood Pressure 100/48 100/47 98/48 O2 Sat by Pulse 95 95 91 Oximetry O2 Sat by Pulse Oximetry [ Assessment] 08/12/18 08/12/18 08/12/18 02:00 02:16 02:30 Temperature Pulse Rate 81 77 76 Pulse Rate [ Bilateral] Pulse Rate [ From Monitor] Respiratory 22 23 20 Rate Respiratory Rate [Bilateral ] Blood Pressure 116/54 106/50 106/50 O2 Sat by Pulse 94 93 94 Oximetry O2 Sat by Pulse Oximetry [ Assessment] 08/12/18 08/12/18 08/12/18 02:46 03:00 03:16 Temperature Pulse Rate 75 75 74 Pulse Rate [ Bilateral] Pulse Rate [ From Monitor] Respiratory 20 21 21 Rate Respiratory Rate [Bilateral ] Blood Pressure 106/50 103/52 108/57 O2 Sat by Pulse 98 93 93 Oximetry O2 Sat by Pulse Oximetry [ Assessment] 08/12/18 08/12/18 08/12/18 03:24 03:30 03:46 Temperature 99.9 F H Pulse Rate 79 Pulse Rate [ Bilateral] Pulse Rate [ From Monitor] Respiratory 28 H Rate Respiratory Rate [Bilateral ] Blood Pressure 108/57 108/57 O2 Sat by Pulse 95 94 Oximetry O2 Sat by Pulse Oximetry [ Assessment] 08/12/18 08/12/18 08/12/18 04:00 04:15 04:28 Temperature Pulse Rate 75 75 80 Pulse Rate [ Bilateral] Pulse Rate [ 75 From Monitor] Respiratory 23 23 Rate Respiratory Rate [Bilateral ] Blood Pressure 104/53 103/52 99/53 O2 Sat by Pulse 96 93 Oximetry O2 Sat by Pulse Oximetry [ Assessment] 08/12/18 08/12/18 08/12/18 04:30 04:45 05:00 Temperature Pulse Rate 74 73 71 Pulse Rate [ Bilateral] Pulse Rate [ From Monitor] Respiratory 21 25 H 26 H Rate Respiratory Rate [Bilateral ] Blood Pressure 104/55 100/53 100/53 O2 Sat by Pulse 94 95 96 Oximetry O2 Sat by Pulse Oximetry [ Assessment] 08/12/18 08/12/18 08/12/18 05:16 05:30 05:45 Temperature Pulse Rate 74 72 71 Pulse Rate [ Bilateral] Pulse Rate [ From Monitor] Respiratory 24 24 25 H Rate Respiratory Rate [Bilateral ] Blood Pressure 100/53 101/53 105/53 O2 Sat by Pulse 97 95 Oximetry O2 Sat by Pulse Oximetry [ Assessment] 08/12/18 08/12/18 08/12/18 06:00 06:15 06:30 Temperature Pulse Rate 71 71 73 Pulse Rate [ Bilateral] Pulse Rate [ From Monitor] Respiratory 26 H 27 H 25 H Rate Respiratory Rate [Bilateral ] Blood Pressure 101/53 101/52 104/55 O2 Sat by Pulse 97 98 95 Oximetry O2 Sat by Pulse Oximetry [ Assessment] 08/12/18 08/12/18 08/12/18 06:45 07:00 07:15 Temperature Pulse Rate 72 72 74 Pulse Rate [ Bilateral] Pulse Rate [ From Monitor] Respiratory 21 24 26 H Rate Respiratory Rate [Bilateral ] Blood Pressure 100/51 104/53 107/51 O2 Sat by Pulse 99 95 Oximetry O2 Sat by Pulse Oximetry [ Assessment] 08/12/18 08/12/18 08/12/18 07:30 07:38 07:45 Temperature 99.5 F Pulse Rate 80 77 Pulse Rate [ Bilateral] Pulse Rate [ From Monitor] Respiratory 28 H 24 Rate Respiratory Rate [Bilateral ] Blood Pressure 106/53 109/48 O2 Sat by Pulse 95 89 Oximetry O2 Sat by Pulse Oximetry [ Assessment] 08/12/18 08/12/18 08/12/18 08:00 08:03 08:15 Temperature 99.5 F Pulse Rate 75 75 75 Pulse Rate [ 76 72 Bilateral] Pulse Rate [ 72 From Monitor] Respiratory 16 16 Rate Respiratory 25 H 16 Rate [Bilateral ] Blood Pressure 105/49 105/49 102/51 O2 Sat by Pulse 98 93 92 Oximetry O2 Sat by Pulse Oximetry [ Assessment] 08/12/18 08/12/18 08/12/18 08:30 08:45 09:00 Temperature Pulse Rate 72 72 71 Pulse Rate [ Bilateral] Pulse Rate [ From Monitor] Respiratory 16 16 16 Rate Respiratory Rate [Bilateral ] Blood Pressure 99/49 97/48 110/53 O2 Sat by Pulse 97 98 100 Oximetry O2 Sat by Pulse Oximetry [ Assessment] 08/12/18 08/12/18 08/12/18 09:14 09:15 09:17 Temperature Pulse Rate 77 76 Pulse Rate [ Bilateral] Pulse Rate [ From Monitor] Respiratory 17 Rate Respiratory Rate [Bilateral ] Blood Pressure 111/54 111/54 O2 Sat by Pulse 100 96 Oximetry O2 Sat by Pulse 94 Oximetry [ Assessment] 08/12/18 08/12/18 08/12/18 09:30 09:45 10:00 Temperature Pulse Rate 76 80 82 Pulse Rate [ Bilateral] Pulse Rate [ From Monitor] Respiratory 10 L 15 12 Rate Respiratory Rate [Bilateral ] Blood Pressure 109/49 99/47 102/50 O2 Sat by Pulse 91 93 92 Oximetry O2 Sat by Pulse Oximetry [ Assessment] 08/12/18 08/12/18 08/12/18 10:16 10:30 10:46 Temperature Pulse Rate 88 86 80 Pulse Rate [ Bilateral] Pulse Rate [ From Monitor] Respiratory 15 33 H 17 Rate Respiratory Rate [Bilateral ] Blood Pressure 106/55 112/58 114/49 O2 Sat by Pulse 87 91 88 Oximetry O2 Sat by Pulse Oximetry [ Assessment] 08/12/18 11:00 Temperature Pulse Rate 73 Pulse Rate [ Bilateral] Pulse Rate [ From Monitor] Respiratory 12 Rate Respiratory Rate [Bilateral ] Blood Pressure 105/50 O2 Sat by Pulse 90 Oximetry O2 Sat by Pulse Oximetry [ Assessment] Constitutional: appears uncomfortable, other (elderly looking CM, normocephalic and atraumatic with normal respiratory effort) Eyes: non-icteric ENT: oropharynx moist, other (ETT 23 cm SUHAS) Neck: supple, no lymphadenopathy, no JVD, other (No thyromegaly) Effort: mildly labored Ascultation: Bilateral: diminished breath sounds, rhonchi Percussion: Bilateral: not dull Cardiovascular: irregular rhythm, other (+ systolic murmur) Gastrointestinal: hypoactive bowel sounds, soft, non-tender, non-distended, other (No palpable HSM) Integumentary: rash, other (upper extremity edema) Extremities: no cyanosis, pink and warm, pulses normal, no ischemia or petechiae Neurologic: non-focal exam (grossly), pupils equal and round, other (moves all extemities) Psychiatric: mood appropriate, affect normal CBC and BMP: 08/13/18 05:20 08/14/18 05:22 ABG, PT/INR, D-dimer: ABG POC ABG pH 7.471 (7.35-7.45) H 08/11/18 15:06 POC ABG pCO2 45.5 (35-45) H 08/11/18 15:06 POC ABG pO2 79 (80-105) L 08/11/18 15:06 POC ABG HCO3 33.2 08/11/18 15:06 POC ABG Total CO2 35 08/11/18 15:06 POC ABG O2 Sat 96 08/11/18 15:06 PT/INR, D-dimer PT 13.4 Sec. (12.2-14.9) 08/07/18 15:08 INR 0.98 (0.87-1.13) 08/07/18 15:08 D-Dimer 798.17 ng/mlDDU (0-234) H 07/27/18 15:52 Abnormal lab findings: Abnormal Labs 07/27/18 07/27/18 07/27/18 12:59 12:59 12:59 WBC 15.8 H RBC Hgb Hct MCV 104 H MCH 34 H MCHC RDW 16.3 H Lymph % (Auto) [place] % (Auto) Lymph # [place] # Seg Neutrophils % Seg Neuts % (Manual) 88.0 H Lymphocytes % (Manual) 3.0 L Monocytes % (Manual) Nucleated RBC % Seg Neutrophils # Seg Neutrophils # Man 13.9 H Lymphocytes # (Manual) 0.5 L Monocytes # (Manual) PT 17.0 H INR 1.34 H APTT D-Dimer Heparin Anti-Xa Level POC ABG pH POC ABG pCO2 POC ABG pO2 Sodium Potassium Chloride Carbon Dioxide 21 L BUN 38 H Creatinine 1.6 H Glucose POC Glucose Lactic Acid Calcium Phosphorus Total Bilirubin 1.30 H C-Reactive Protein NT-Pro-B Natriuret Pep 3913 H Total Protein 6.2 L Albumin 3.6 L Urine WBC (Auto) Urine Creatinine 07/27/18 07/27/18 07/27/18 15:52 16:12 17:09 WBC RBC Hgb Hct MCV MCH MCHC RDW Lymph % (Auto) [place] % (Auto) Lymph # [place] # Seg Neutrophils % Seg Neuts % (Manual) Lymphocytes % (Manual) Monocytes % (Manual) Nucleated RBC % Seg Neutrophils # Seg Neutrophils # Man Lymphocytes # (Manual) Monocytes # (Manual) PT 16.0 H INR 1.24 H APTT D-Dimer 798.17 H Heparin Anti-Xa Level POC ABG pH POC ABG pCO2 POC ABG pO2 Sodium Potassium Chloride Carbon Dioxide BUN Creatinine Glucose POC Glucose Lactic Acid 5.00 H* Calcium Phosphorus Total Bilirubin C-Reactive Protein NT-Pro-B Natriuret Pep Total Protein Albumin Urine WBC (Auto) Urine Creatinine 07/27/18 07/27/18 07/27/18 17:59 18:07 21:31 WBC RBC Hgb Hct MCV MCH MCHC RDW Lymph % (Auto) [place] % (Auto) Lymph # [place] # Seg Neutrophils % Seg Neuts % (Manual) Lymphocytes % (Manual) Monocytes % (Manual) Nucleated RBC % Seg Neutrophils # Seg Neutrophils # Man Lymphocytes # (Manual) Monocytes # (Manual) PT INR APTT D-Dimer Heparin Anti-Xa Level POC ABG pH 7.344 L POC ABG pCO2 POC ABG pO2 36 L Sodium Potassium Chloride Carbon Dioxide BUN Creatinine Glucose POC Glucose Lactic Acid 5.20 H* 5.00 H* Calcium Phosphorus Total Bilirubin C-Reactive Protein NT-Pro-B Natriuret Pep Total Protein Albumin Urine WBC (Auto) Urine Creatinine 07/27/18 07/27/18 07/27/18 21:57 22:42 23:26 WBC RBC Hgb Hct MCV MCH MCHC RDW Lymph % (Auto) [place] % (Auto) Lymph # [place] # Seg Neutrophils % Seg Neuts % (Manual) Lymphocytes % (Manual) Monocytes % (Manual) Nucleated RBC % Seg Neutrophils # Seg Neutrophils # Man Lymphocytes # (Manual) Monocytes # (Manual) PT INR APTT D-Dimer Heparin Anti-Xa Level POC ABG pH 7.199 L POC ABG pCO2 62.0 H POC ABG pO2 Sodium Potassium Chloride Carbon Dioxide BUN Creatinine Glucose POC Glucose Lactic Acid 4.70 H* 5.00 H* Calcium Phosphorus Total Bilirubin C-Reactive Protein NT-Pro-B Natriuret Pep Total Protein Albumin Urine WBC (Auto) Urine Creatinine 07/28/18 07/28/18 07/28/18 00:45 05:40 05:58 WBC RBC Hgb Hct MCV MCH MCHC RDW Lymph % (Auto) [place] % (Auto) Lymph # [place] # Seg Neutrophils % Seg Neuts % (Manual) Lymphocytes % (Manual) Monocytes % (Manual) Nucleated RBC % Seg Neutrophils # Seg Neutrophils # Man Lymphocytes # (Manual) Monocytes # (Manual) PT INR APTT D-Dimer Heparin Anti-Xa Level 0.11 L POC ABG pH 7.186 L POC ABG pCO2 60.1 H POC ABG pO2 68 L Sodium Potassium Chloride Carbon Dioxide BUN Creatinine Glucose POC Glucose Lactic Acid 4.70 H* Calcium Phosphorus Total Bilirubin C-Reactive Protein NT-Pro-B Natriuret Pep Total Protein Albumin Urine WBC (Auto) Urine Creatinine 07/28/18 07/28/18 07/28/18 06:01 06:01 07:19 WBC 12.5 H RBC 3.51 L Hgb 11.5 L Hct MCV 104 H MCH 33 H MCHC RDW 16.6 H Lymph % (Auto) [place] % (Auto) Lymph # [place] # Seg Neutrophils % Seg Neuts % (Manual) Lymphocytes % (Manual) Monocytes % (Manual) Nucleated RBC % Seg Neutrophils # Seg Neutrophils # Man Lymphocytes # (Manual) Monocytes # (Manual) PT INR APTT D-Dimer Heparin Anti-Xa Level 0.14 L POC ABG pH POC ABG pCO2 POC ABG pO2 Sodium 135 L Potassium 5.1 H Chloride 95.0 L Carbon Dioxide 21 L BUN 54 H Creatinine 2.6 H D Glucose POC Glucose Lactic Acid Calcium Phosphorus Total Bilirubin C-Reactive Protein NT-Pro-B Natriuret Pep Total Protein Albumin Urine WBC (Auto) Urine Creatinine 07/28/18 07/28/18 07/28/18 07:19 09:20 11:06 WBC RBC Hgb Hct MCV MCH MCHC RDW Lymph % (Auto) [place] % (Auto) Lymph # [place] # Seg Neutrophils % Seg Neuts % (Manual) Lymphocytes % (Manual) Monocytes % (Manual) Nucleated RBC % Seg Neutrophils # Seg Neutrophils # Man Lymphocytes # (Manual) Monocytes # (Manual) PT INR APTT D-Dimer Heparin Anti-Xa Level POC ABG pH 7.266 L POC ABG pCO2 49.7 H POC ABG pO2 74 L Sodium Potassium Chloride Carbon Dioxide BUN Creatinine Glucose POC Glucose Lactic Acid 4.00 H* 3.90 H* Calcium Phosphorus Total Bilirubin C-Reactive Protein NT-Pro-B Natriuret Pep Total Protein Albumin Urine WBC (Auto) Urine Creatinine 07/28/18 07/28/18 07/28/18 15:06 20:45 23:36 WBC RBC Hgb Hct MCV MCH MCHC RDW Lymph % (Auto) [place] % (Auto) Lymph # [place] # Seg Neutrophils % Seg Neuts % (Manual) Lymphocytes % (Manual) Monocytes % (Manual) Nucleated RBC % Seg Neutrophils # Seg Neutrophils # Man Lymphocytes # (Manual) Monocytes # (Manual) PT INR APTT D-Dimer Heparin Anti-Xa Level 0.15 L POC ABG pH POC ABG pCO2 POC ABG pO2 Sodium 134 L Potassium 5.2 H Chloride Carbon Dioxide BUN 58 H Creatinine 2.1 H Glucose 110 H POC Glucose 125 H Lactic Acid Calcium Phosphorus Total Bilirubin C-Reactive Protein NT-Pro-B Natriuret Pep Total Protein Albumin Urine WBC (Auto) Urine Creatinine 07/29/18 07/29/18 07/29/18 01:12 04:21 04:21 WBC RBC 3.21 L Hgb 10.8 L Hct 33.0 L MCV 103 H MCH 34 H MCHC RDW 16.4 H Lymph % (Auto) [place] % (Auto) Lymph # [place] # Seg Neutrophils % Seg Neuts % (Manual) Lymphocytes % (Manual) 11.0 L Monocytes % (Manual) Nucleated RBC % Seg Neutrophils # Seg Neutrophils # Man Lymphocytes # (Manual) 1.0 L Monocytes # (Manual) PT INR APTT D-Dimer Heparin Anti-Xa Level 0.21 L POC ABG pH POC ABG pCO2 POC ABG pO2 Sodium Potassium Chloride Carbon Dioxide BUN 48 H Creatinine 1.6 H Glucose 166 H POC Glucose Lactic Acid Calcium Phosphorus Total Bilirubin C-Reactive Protein NT-Pro-B Natriuret Pep Total Protein Albumin Urine WBC (Auto) Urine Creatinine 07/29/18 07/29/18 07/29/18 05:19 08:16 09:24 WBC RBC Hgb Hct MCV MCH MCHC RDW Lymph % (Auto) [place] % (Auto) Lymph # [place] # Seg Neutrophils % Seg Neuts % (Manual) Lymphocytes % (Manual) Monocytes % (Manual) Nucleated RBC % Seg Neutrophils # Seg Neutrophils # Man Lymphocytes # (Manual) Monocytes # (Manual) PT INR APTT D-Dimer Heparin Anti-Xa Level 0.25 L POC ABG pH POC ABG pCO2 POC ABG pO2 Sodium Potassium Chloride Carbon Dioxide BUN Creatinine Glucose POC Glucose 181 H Lactic Acid Calcium Phosphorus Total Bilirubin C-Reactive Protein NT-Pro-B Natriuret Pep Total Protein Albumin Urine WBC (Auto) 29.0 H Urine Creatinine 07/29/18 07/29/18 07/29/18 09:24 10:00 15:03 WBC RBC Hgb Hct MCV MCH MCHC RDW Lymph % (Auto) [place] % (Auto) Lymph # [place] # Seg Neutrophils % Seg Neuts % (Manual) Lymphocytes % (Manual) Monocytes % (Manual) Nucleated RBC % Seg Neutrophils # Seg Neutrophils # Man Lymphocytes # (Manual) Monocytes # (Manual) PT INR APTT D-Dimer Heparin Anti-Xa Level POC ABG pH POC ABG pCO2 POC ABG pO2 Sodium Potassium Chloride Carbon Dioxide BUN Creatinine Glucose POC Glucose 195 H 167 H Lactic Acid Calcium Phosphorus Total Bilirubin C-Reactive Protein NT-Pro-B Natriuret Pep Total Protein Albumin Urine WBC (Auto) Urine Creatinine 72.3 H 07/29/18 07/29/18 07/30/18 17:51 21:32 01:38 WBC RBC Hgb Hct MCV MCH MCHC RDW Lymph % (Auto) [place] % (Auto) Lymph # [place] # Seg Neutrophils % Seg Neuts % (Manual) Lymphocytes % (Manual) Monocytes % (Manual) Nucleated RBC % Seg Neutrophils # Seg Neutrophils # Man Lymphocytes # (Manual) Monocytes # (Manual) PT INR APTT D-Dimer Heparin Anti-Xa Level POC ABG pH POC ABG pCO2 POC ABG pO2 Sodium Potassium Chloride Carbon Dioxide BUN Creatinine Glucose POC Glucose 167 H 217 H 194 H Lactic Acid Calcium Phosphorus Total Bilirubin C-Reactive Protein NT-Pro-B Natriuret Pep Total Protein Albumin Urine WBC (Auto) Urine Creatinine 07/30/18 07/30/18 07/30/18 03:21 05:13 10:18 WBC RBC Hgb Hct MCV MCH MCHC RDW Lymph % (Auto) [place] % (Auto) Lymph # [place] # Seg Neutrophils % Seg Neuts % (Manual) Lymphocytes % (Manual) Monocytes % (Manual) Nucleated RBC % Seg Neutrophils # Seg Neutrophils # Man Lymphocytes # (Manual) Monocytes # (Manual) PT INR APTT D-Dimer Heparin Anti-Xa Level POC ABG pH POC ABG pCO2 50.3 H POC ABG pO2 78 L Sodium Potassium Chloride Carbon Dioxide BUN 41 H Creatinine Glucose 202 H POC Glucose 151 H Lactic Acid Calcium Phosphorus Total Bilirubin C-Reactive Protein NT-Pro-B Natriuret Pep Total Protein Albumin Urine WBC (Auto) Urine Creatinine 07/30/18 07/30/18 07/30/18 11:29 16:28 18:12 WBC RBC Hgb Hct MCV MCH MCHC RDW Lymph % (Auto) [place] % (Auto) Lymph # [place] # Seg Neutrophils % Seg Neuts % (Manual) Lymphocytes % (Manual) Monocytes % (Manual) Nucleated RBC % Seg Neutrophils # Seg Neutrophils # Man Lymphocytes # (Manual) Monocytes # (Manual) PT INR APTT D-Dimer Heparin Anti-Xa Level POC ABG pH 7.326 L POC ABG pCO2 53.2 H POC ABG pO2 70 L Sodium Potassium Chloride Carbon Dioxide BUN Creatinine Glucose POC Glucose 247 H 212 H Lactic Acid Calcium Phosphorus Total Bilirubin C-Reactive Protein NT-Pro-B Natriuret Pep Total Protein Albumin Urine WBC (Auto) Urine Creatinine 07/30/18 07/30/18 07/31/18 20:08 21:52 01:59 WBC RBC Hgb Hct MCV MCH MCHC RDW Lymph % (Auto) [place] % (Auto) Lymph # [place] # Seg Neutrophils % Seg Neuts % (Manual) Lymphocytes % (Manual) Monocytes % (Manual) Nucleated RBC % Seg Neutrophils # Seg Neutrophils # Man Lymphocytes # (Manual) Monocytes # (Manual) PT INR APTT D-Dimer Heparin Anti-Xa Level POC ABG pH POC ABG pCO2 POC ABG pO2 Sodium Potassium Chloride Carbon Dioxide BUN Creatinine Glucose POC Glucose 205 H 215 H 242 H Lactic Acid Calcium Phosphorus Total Bilirubin C-Reactive Protein NT-Pro-B Natriuret Pep Total Protein Albumin Urine WBC (Auto) Urine Creatinine 07/31/18 07/31/18 07/31/18 03:14 03:14 04:55 WBC RBC Hgb 10.6 L Hct 33.2 L MCV MCH MCHC RDW Lymph % (Auto) [place] % (Auto) Lymph # [place] # Seg Neutrophils % Seg Neuts % (Manual) Lymphocytes % (Manual) Monocytes % (Manual) Nucleated RBC % Seg Neutrophils # Seg Neutrophils # Man Lymphocytes # (Manual) Monocytes # (Manual) PT INR APTT D-Dimer Heparin Anti-Xa Level POC ABG pH 7.331 L POC ABG pCO2 67.1 H POC ABG pO2 Sodium Potassium Chloride Carbon Dioxide BUN 36 H Creatinine 0.7 L Glucose 242 H POC Glucose Lactic Acid Calcium 10.3 H Phosphorus 2.30 L Total Bilirubin C-Reactive Protein NT-Pro-B Natriuret Pep Total Protein Albumin Urine WBC (Auto) Urine Creatinine 07/31/18 07/31/18 07/31/18 05:37 10:08 14:07 WBC RBC Hgb Hct MCV MCH MCHC RDW Lymph % (Auto) [place] % (Auto) Lymph # [place] # Seg Neutrophils % Seg Neuts % (Manual) Lymphocytes % (Manual) Monocytes % (Manual) Nucleated RBC % Seg Neutrophils # Seg Neutrophils # Man Lymphocytes # (Manual) Monocytes # (Manual) PT INR APTT D-Dimer Heparin Anti-Xa Level POC ABG pH POC ABG pCO2 POC ABG pO2 Sodium Potassium Chloride Carbon Dioxide BUN Creatinine Glucose POC Glucose 193 H 247 H 225 H Lactic Acid Calcium Phosphorus Total Bilirubin C-Reactive Protein NT-Pro-B Natriuret Pep Total Protein Albumin Urine WBC (Auto) Urine Creatinine 07/31/18 07/31/18 08/01/18 18:12 21:34 02:00 WBC RBC Hgb Hct MCV MCH MCHC RDW Lymph % (Auto) [place] % (Auto) Lymph # [place] # Seg Neutrophils % Seg Neuts % (Manual) Lymphocytes % (Manual) Monocytes % (Manual) Nucleated RBC % Seg Neutrophils # Seg Neutrophils # Man Lymphocytes # (Manual) Monocytes # (Manual) PT INR APTT D-Dimer Heparin Anti-Xa Level POC ABG pH POC ABG pCO2 POC ABG pO2 Sodium Potassium Chloride Carbon Dioxide BUN Creatinine Glucose POC Glucose 197 H 204 H 239 H Lactic Acid Calcium Phosphorus Total Bilirubin C-Reactive Protein NT-Pro-B Natriuret Pep Total Protein Albumin Urine WBC (Auto) Urine Creatinine 08/01/18 08/01/18 08/01/18 04:13 04:37 05:29 WBC RBC Hgb Hct MCV MCH MCHC RDW Lymph % (Auto) [place] % (Auto) Lymph # [place] # Seg Neutrophils % Seg Neuts % (Manual) Lymphocytes % (Manual) Monocytes % (Manual) Nucleated RBC % Seg Neutrophils # Seg Neutrophils # Man Lymphocytes # (Manual) Monocytes # (Manual) PT INR APTT D-Dimer Heparin Anti-Xa Level POC ABG pH 7.296 L POC ABG pCO2 81.9 H POC ABG pO2 190 H Sodium 150 H D Potassium Chloride Carbon Dioxide 37 H D BUN 37 H Creatinine 0.6 L Glucose 223 H POC Glucose 219 H Lactic Acid Calcium Phosphorus Total Bilirubin C-Reactive Protein NT-Pro-B Natriuret Pep Total Protein Albumin Urine WBC (Auto) Urine Creatinine 08/01/18 08/01/18 08/01/18 09:28 11:00 17:36 WBC RBC Hgb Hct MCV MCH MCHC RDW Lymph % (Auto) [place] % (Auto) Lymph # [place] # Seg Neutrophils % Seg Neuts % (Manual) Lymphocytes % (Manual) Monocytes % (Manual) Nucleated RBC % Seg Neutrophils # Seg Neutrophils # Man Lymphocytes # (Manual) Monocytes # (Manual) PT INR APTT D-Dimer Heparin Anti-Xa Level POC ABG pH POC ABG pCO2 61.2 H POC ABG pO2 69 L Sodium Potassium Chloride Carbon Dioxide BUN Creatinine Glucose POC Glucose 185 H 234 H Lactic Acid Calcium Phosphorus Total Bilirubin C-Reactive Protein NT-Pro-B Natriuret Pep Total Protein Albumin Urine WBC (Auto) Urine Creatinine 08/01/18 08/02/18 08/02/18 21:54 00:08 00:44 WBC RBC Hgb Hct MCV MCH MCHC RDW Lymph % (Auto) [place] % (Auto) Lymph # [place] # Seg Neutrophils % Seg Neuts % (Manual) Lymphocytes % (Manual) Monocytes % (Manual) Nucleated RBC % Seg Neutrophils # Seg Neutrophils # Man Lymphocytes # (Manual) Monocytes # (Manual) PT INR APTT D-Dimer Heparin Anti-Xa Level 0.77 H POC ABG pH POC ABG pCO2 66.4 H POC ABG pO2 64 L Sodium Potassium Chloride Carbon Dioxide BUN Creatinine Glucose POC Glucose 242 H Lactic Acid Calcium Phosphorus Total Bilirubin C-Reactive Protein NT-Pro-B Natriuret Pep Total Protein Albumin Urine WBC (Auto) Urine Creatinine 08/02/18 08/02/18 08/02/18 02:46 04:45 04:45 WBC RBC Hgb 10.7 L Hct 33.7 L MCV MCH MCHC RDW Lymph % (Auto) [place] % (Auto) Lymph # [place] # Seg Neutrophils % Seg Neuts % (Manual) Lymphocytes % (Manual) Monocytes % (Manual) Nucleated RBC % Seg Neutrophils # Seg Neutrophils # Man Lymphocytes # (Manual) Monocytes # (Manual) PT INR APTT D-Dimer Heparin Anti-Xa Level POC ABG pH POC ABG pCO2 POC ABG pO2 Sodium 152 H Potassium Chloride 108.1 H Carbon Dioxide 39 H BUN 38 H Creatinine 0.6 L Glucose 226 H POC Glucose 206 H Lactic Acid Calcium Phosphorus Total Bilirubin C-Reactive Protein NT-Pro-B Natriuret Pep Total Protein Albumin Urine WBC (Auto) Urine Creatinine 08/02/18 08/02/18 08/02/18 05:31 09:46 14:23 WBC RBC Hgb Hct MCV MCH MCHC RDW Lymph % (Auto) [place] % (Auto) Lymph # [place] # Seg Neutrophils % Seg Neuts % (Manual) Lymphocytes % (Manual) Monocytes % (Manual) Nucleated RBC % Seg Neutrophils # Seg Neutrophils # Man Lymphocytes # (Manual) Monocytes # (Manual) PT INR APTT D-Dimer Heparin Anti-Xa Level 0.91 H POC ABG pH POC ABG pCO2 POC ABG pO2 Sodium Potassium Chloride Carbon Dioxide BUN Creatinine Glucose POC Glucose 214 H 210 H Lactic Acid Calcium Phosphorus Total Bilirubin C-Reactive Protein NT-Pro-B Natriuret Pep Total Protein Albumin Urine WBC (Auto) Urine Creatinine 08/02/18 08/02/18 08/02/18 15:46 17:56 21:50 WBC RBC Hgb Hct MCV MCH MCHC RDW Lymph % (Auto) [place] % (Auto) Lymph # [place] # Seg Neutrophils % Seg Neuts % (Manual) Lymphocytes % (Manual) Monocytes % (Manual) Nucleated RBC % Seg Neutrophils # Seg Neutrophils # Man Lymphocytes # (Manual) Monocytes # (Manual) PT INR APTT D-Dimer Heparin Anti-Xa Level 0.99 H POC ABG pH POC ABG pCO2 POC ABG pO2 Sodium Potassium Chloride Carbon Dioxide BUN Creatinine Glucose POC Glucose 252 H 222 H Lactic Acid Calcium Phosphorus Total Bilirubin C-Reactive Protein NT-Pro-B Natriuret Pep Total Protein Albumin Urine WBC (Auto) Urine Creatinine 08/03/18 08/03/18 08/03/18 02:18 05:21 05:25 WBC RBC Hgb Hct MCV MCH MCHC RDW Lymph % (Auto) [place] % (Auto) Lymph # [place] # Seg Neutrophils % Seg Neuts % (Manual) Lymphocytes % (Manual) Monocytes % (Manual) Nucleated RBC % Seg Neutrophils # Seg Neutrophils # Man Lymphocytes # (Manual) Monocytes # (Manual) PT INR APTT D-Dimer Heparin Anti-Xa Level POC ABG pH POC ABG pCO2 POC ABG pO2 Sodium 151 H Potassium Chloride 107.3 H Carbon Dioxide 37 H BUN 42 H Creatinine 0.6 L Glucose 263 H POC Glucose 241 H 241 H Lactic Acid Calcium Phosphorus Total Bilirubin C-Reactive Protein NT-Pro-B Natriuret Pep Total Protein Albumin Urine WBC (Auto) Urine Creatinine 08/03/18 08/03/18 08/03/18 09:11 12:20 14:33 WBC RBC Hgb Hct MCV MCH MCHC RDW Lymph % (Auto) [place] % (Auto) Lymph # [place] # Seg Neutrophils % Seg Neuts % (Manual) Lymphocytes % (Manual) Monocytes % (Manual) Nucleated RBC % Seg Neutrophils # Seg Neutrophils # Man Lymphocytes # (Manual) Monocytes # (Manual) PT INR APTT D-Dimer Heparin Anti-Xa Level POC ABG pH POC ABG pCO2 POC ABG pO2 Sodium Potassium Chloride Carbon Dioxide BUN Creatinine Glucose POC Glucose 272 H 234 H 247 H Lactic Acid Calcium Phosphorus Total Bilirubin C-Reactive Protein NT-Pro-B Natriuret Pep Total Protein Albumin Urine WBC (Auto) Urine Creatinine 08/03/18 08/03/18 08/04/18 16:48 21:21 01:56 WBC RBC Hgb Hct MCV MCH MCHC RDW Lymph % (Auto) [place] % (Auto) Lymph # [place] # Seg Neutrophils % Seg Neuts % (Manual) Lymphocytes % (Manual) Monocytes % (Manual) Nucleated RBC % Seg Neutrophils # Seg Neutrophils # Man Lymphocytes # (Manual) Monocytes # (Manual) PT INR APTT D-Dimer Heparin Anti-Xa Level POC ABG pH POC ABG pCO2 POC ABG pO2 Sodium Potassium Chloride Carbon Dioxide BUN Creatinine Glucose POC Glucose 180 H 189 H Lactic Acid Calcium Phosphorus Total Bilirubin C-Reactive Protein 2.30 H NT-Pro-B Natriuret Pep Total Protein Albumin Urine WBC (Auto) Urine Creatinine 08/04/18 08/04/18 08/04/18 01:58 05:05 05:05 WBC 25.5 H RBC 3.31 L Hgb 10.8 L Hct 34.1 L MCV 103 H MCH 33 H MCHC RDW 16.0 H Lymph % (Auto) [place] % (Auto) Lymph # [place] # Seg Neutrophils % Seg Neuts % (Manual) Lymphocytes % (Manual) 8.0 L Monocytes % (Manual) Nucleated RBC % 2.0 H Seg Neutrophils # Seg Neutrophils # Man 16.3 H Lymphocytes # (Manual) Monocytes # (Manual) 1.0 H PT INR APTT D-Dimer Heparin Anti-Xa Level 0.79 H POC ABG pH POC ABG pCO2 POC ABG pO2 Sodium 148 H Potassium Chloride Carbon Dioxide 36 H BUN 35 H Creatinine 0.6 L Glucose 160 H POC Glucose Lactic Acid Calcium Phosphorus Total Bilirubin C-Reactive Protein NT-Pro-B Natriuret Pep Total Protein Albumin Urine WBC (Auto) Urine Creatinine 08/04/18 08/04/18 08/04/18 05:24 05:33 08:46 WBC RBC Hgb Hct MCV MCH MCHC RDW Lymph % (Auto) [place] % (Auto) Lymph # [place] # Seg Neutrophils % Seg Neuts % (Manual) Lymphocytes % (Manual) Monocytes % (Manual) Nucleated RBC % Seg Neutrophils # Seg Neutrophils # Man Lymphocytes # (Manual) Monocytes # (Manual) PT INR APTT D-Dimer Heparin Anti-Xa Level 0.76 H POC ABG pH POC ABG pCO2 65.7 H POC ABG pO2 63 L Sodium Potassium Chloride Carbon Dioxide BUN Creatinine Glucose POC Glucose 159 H Lactic Acid Calcium Phosphorus Total Bilirubin C-Reactive Protein NT-Pro-B Natriuret Pep Total Protein Albumin Urine WBC (Auto) Urine Creatinine 08/04/18 08/04/18 08/04/18 09:12 15:38 18:20 WBC RBC Hgb Hct MCV MCH MCHC RDW Lymph % (Auto) [place] % (Auto) Lymph # [place] # Seg Neutrophils % Seg Neuts % (Manual) Lymphocytes % (Manual) Monocytes % (Manual) Nucleated RBC % Seg Neutrophils # Seg Neutrophils # Man Lymphocytes # (Manual) Monocytes # (Manual) PT INR APTT D-Dimer Heparin Anti-Xa Level POC ABG pH POC ABG pCO2 POC ABG pO2 Sodium Potassium Chloride Carbon Dioxide BUN Creatinine Glucose POC Glucose 140 H 267 H 252 H Lactic Acid Calcium Phosphorus Total Bilirubin C-Reactive Protein NT-Pro-B Natriuret Pep Total Protein Albumin Urine WBC (Auto) Urine Creatinine 08/04/18 08/05/18 08/05/18 21:17 02:51 04:36 WBC RBC Hgb Hct MCV MCH MCHC RDW Lymph % (Auto) [place] % (Auto) Lymph # [place] # Seg Neutrophils % Seg Neuts % (Manual) Lymphocytes % (Manual) Monocytes % (Manual) Nucleated RBC % Seg Neutrophils # Seg Neutrophils # Man Lymphocytes # (Manual) Monocytes # (Manual) PT INR APTT D-Dimer Heparin Anti-Xa Level POC ABG pH POC ABG pCO2 POC ABG pO2 Sodium Potassium Chloride Carbon Dioxide BUN Creatinine Glucose POC Glucose 181 H 240 H 255 H Lactic Acid Calcium Phosphorus Total Bilirubin C-Reactive Protein NT-Pro-B Natriuret Pep Total Protein Albumin Urine WBC (Auto) Urine Creatinine 08/05/18 08/05/18 08/05/18 04:55 10:21 12:39 WBC 21.8 H RBC 3.18 L Hgb 10.3 L Hct 32.6 L MCV 103 H MCH 33 H MCHC RDW 16.3 H Lymph % (Auto) [place] % (Auto) Lymph # [place] # Seg Neutrophils % Seg Neuts % (Manual) 88.0 H Lymphocytes % (Manual) 4.0 L Monocytes % (Manual) Nucleated RBC % Seg Neutrophils # Seg Neutrophils # Man 19.2 H Lymphocytes # (Manual) 0.9 L Monocytes # (Manual) PT INR APTT D-Dimer Heparin Anti-Xa Level POC ABG pH 7.506 H POC ABG pCO2 56.0 H POC ABG pO2 63 L Sodium Potassium Chloride Carbon Dioxide BUN Creatinine Glucose POC Glucose 227 H Lactic Acid Calcium Phosphorus Total Bilirubin C-Reactive Protein NT-Pro-B Natriuret Pep Total Protein Albumin Urine WBC (Auto) Urine Creatinine 08/05/18 08/05/18 08/05/18 12:39 14:10 17:30 WBC RBC Hgb Hct MCV MCH MCHC RDW Lymph % (Auto) [place] % (Auto) Lymph # [place] # Seg Neutrophils % Seg Neuts % (Manual) Lymphocytes % (Manual) Monocytes % (Manual) Nucleated RBC % Seg Neutrophils # Seg Neutrophils # Man Lymphocytes # (Manual) Monocytes # (Manual) PT INR APTT D-Dimer Heparin Anti-Xa Level < 0.10 L POC ABG pH POC ABG pCO2 POC ABG pO2 Sodium Potassium Chloride 96.8 L Carbon Dioxide 38 H BUN 36 H Creatinine 0.6 L Glucose 218 H POC Glucose 221 H Lactic Acid Calcium Phosphorus Total Bilirubin C-Reactive Protein NT-Pro-B Natriuret Pep Total Protein Albumin Urine WBC (Auto) Urine Creatinine 08/05/18 08/05/18 08/06/18 18:32 23:32 02:26 WBC RBC Hgb Hct MCV MCH MCHC RDW Lymph % (Auto) [place] % (Auto) Lymph # [place] # Seg Neutrophils % Seg Neuts % (Manual) Lymphocytes % (Manual) Monocytes % (Manual) Nucleated RBC % Seg Neutrophils # Seg Neutrophils # Man Lymphocytes # (Manual) Monocytes # (Manual) PT INR APTT D-Dimer Heparin Anti-Xa Level POC ABG pH POC ABG pCO2 POC ABG pO2 Sodium Potassium Chloride Carbon Dioxide BUN Creatinine Glucose POC Glucose 253 H 215 H 227 H Lactic Acid Calcium Phosphorus Total Bilirubin C-Reactive Protein NT-Pro-B Natriuret Pep Total Protein Albumin Urine WBC (Auto) Urine Creatinine 08/06/18 08/06/18 08/06/18 05:17 05:17 05:32 WBC 18.9 H RBC 3.06 L Hgb 10.2 L Hct 31.3 L MCV 102 H MCH 33 H MCHC RDW 16.1 H Lymph % (Auto) [place] % (Auto) Lymph # [place] # Seg Neutrophils % Seg Neuts % (Manual) Lymphocytes % (Manual) Monocytes % (Manual) Nucleated RBC % Seg Neutrophils # Seg Neutrophils # Man Lymphocytes # (Manual) Monocytes # (Manual) PT INR APTT D-Dimer Heparin Anti-Xa Level POC ABG pH 7.468 H POC ABG pCO2 59.5 H POC ABG pO2 64 L Sodium Potassium Chloride Carbon Dioxide 37 H BUN 37 H Creatinine 0.5 L Glucose 226 H POC Glucose Lactic Acid Calcium Phosphorus Total Bilirubin C-Reactive Protein NT-Pro-B Natriuret Pep Total Protein Albumin Urine WBC (Auto) Urine Creatinine 08/06/18 08/06/18 08/06/18 10:11 15:03 17:48 WBC RBC Hgb Hct MCV MCH MCHC RDW Lymph % (Auto) [place] % (Auto) Lymph # [place] # Seg Neutrophils % Seg Neuts % (Manual) Lymphocytes % (Manual) Monocytes % (Manual) Nucleated RBC % Seg Neutrophils # Seg Neutrophils # Man Lymphocytes # (Manual) Monocytes # (Manual) PT INR APTT D-Dimer Heparin Anti-Xa Level POC ABG pH POC ABG pCO2 POC ABG pO2 Sodium Potassium Chloride Carbon Dioxide BUN Creatinine Glucose POC Glucose 207 H 229 H 188 H Lactic Acid Calcium Phosphorus Total Bilirubin C-Reactive Protein NT-Pro-B Natriuret Pep Total Protein Albumin Urine WBC (Auto) Urine Creatinine 08/06/18 08/07/18 08/07/18 22:53 01:55 05:30 WBC RBC Hgb Hct MCV MCH MCHC RDW Lymph % (Auto) [place] % (Auto) Lymph # [place] # Seg Neutrophils % Seg Neuts % (Manual) Lymphocytes % (Manual) Monocytes % (Manual) Nucleated RBC % Seg Neutrophils # Seg Neutrophils # Man Lymphocytes # (Manual) Monocytes # (Manual) PT INR APTT D-Dimer Heparin Anti-Xa Level POC ABG pH POC ABG pCO2 69.6 H POC ABG pO2 64 L Sodium Potassium Chloride Carbon Dioxide BUN Creatinine Glucose POC Glucose 146 H 143 H Lactic Acid Calcium Phosphorus Total Bilirubin C-Reactive Protein NT-Pro-B Natriuret Pep Total Protein Albumin Urine WBC (Auto) Urine Creatinine 08/07/18 08/07/18 08/07/18 09:59 14:16 15:08 WBC RBC Hgb 10.3 L Hct 32.2 L MCV MCH MCHC RDW Lymph % (Auto) [place] % (Auto) Lymph # [place] # Seg Neutrophils % Seg Neuts % (Manual) Lymphocytes % (Manual) Monocytes % (Manual) Nucleated RBC % Seg Neutrophils # Seg Neutrophils # Man Lymphocytes # (Manual) Monocytes # (Manual) PT INR APTT D-Dimer Heparin Anti-Xa Level POC ABG pH POC ABG pCO2 POC ABG pO2 Sodium Potassium Chloride Carbon Dioxide BUN Creatinine Glucose POC Glucose 188 H 223 H Lactic Acid Calcium Phosphorus Total Bilirubin C-Reactive Protein NT-Pro-B Natriuret Pep Total Protein Albumin Urine WBC (Auto) Urine Creatinine 08/07/18 08/07/18 08/07/18 15:08 17:39 22:04 WBC RBC Hgb Hct MCV MCH MCHC RDW Lymph % (Auto) [place] % (Auto) Lymph # [place] # Seg Neutrophils % Seg Neuts % (Manual) Lymphocytes % (Manual) Monocytes % (Manual) Nucleated RBC % Seg Neutrophils # Seg Neutrophils # Man Lymphocytes # (Manual) Monocytes # (Manual) PT INR APTT 23.2 L D-Dimer Heparin Anti-Xa Level POC ABG pH POC ABG pCO2 POC ABG pO2 Sodium Potassium Chloride Carbon Dioxide BUN Creatinine Glucose POC Glucose 208 H 163 H Lactic Acid Calcium Phosphorus Total Bilirubin C-Reactive Protein NT-Pro-B Natriuret Pep Total Protein Albumin Urine WBC (Auto) Urine Creatinine 08/07/18 08/08/18 08/08/18 22:30 01:57 02:09 WBC 14.6 H RBC 2.88 L Hgb 9.5 L Hct 29.9 L MCV 104 H MCH 33 H MCHC RDW 16.8 H Lymph % (Auto) [place] % (Auto) Lymph # [place] # Seg Neutrophils % Seg Neuts % (Manual) 73.0 H Lymphocytes % (Manual) 9.0 L Monocytes % (Manual) 10.0 H Nucleated RBC % Seg Neutrophils # Seg Neutrophils # Man 10.7 H Lymphocytes # (Manual) Monocytes # (Manual) 1.5 H PT INR APTT D-Dimer Heparin Anti-Xa Level 0.25 L POC ABG pH POC ABG pCO2 POC ABG pO2 Sodium Potassium Chloride Carbon Dioxide BUN Creatinine Glucose POC Glucose 120 H Lactic Acid Calcium Phosphorus Total Bilirubin C-Reactive Protein NT-Pro-B Natriuret Pep Total Protein Albumin Urine WBC (Auto) Urine Creatinine 08/08/18 08/08/18 08/08/18 02:09 04:58 05:19 WBC RBC Hgb Hct MCV MCH MCHC RDW Lymph % (Auto) [place] % (Auto) Lymph # [place] # Seg Neutrophils % Seg Neuts % (Manual) Lymphocytes % (Manual) Monocytes % (Manual) Nucleated RBC % Seg Neutrophils # Seg Neutrophils # Man Lymphocytes # (Manual) Monocytes # (Manual) PT INR APTT D-Dimer Heparin Anti-Xa Level POC ABG pH 7.461 H POC ABG pCO2 57.3 H POC ABG pO2 62 L Sodium Potassium Chloride Carbon Dioxide 39 H BUN 29 H Creatinine 0.5 L Glucose 124 H POC Glucose 139 H Lactic Acid Calcium Phosphorus Total Bilirubin C-Reactive Protein NT-Pro-B Natriuret Pep Total Protein Albumin Urine WBC (Auto) Urine Creatinine 08/08/18 08/08/18 08/08/18 10:22 14:52 16:12 WBC RBC Hgb Hct MCV MCH MCHC RDW Lymph % (Auto) [place] % (Auto) Lymph # [place] # Seg Neutrophils % Seg Neuts % (Manual) Lymphocytes % (Manual) Monocytes % (Manual) Nucleated RBC % Seg Neutrophils # Seg Neutrophils # Man Lymphocytes # (Manual) Monocytes # (Manual) PT INR APTT D-Dimer Heparin Anti-Xa Level POC ABG pH POC ABG pCO2 POC ABG pO2 Sodium Potassium Chloride Carbon Dioxide BUN Creatinine Glucose POC Glucose 169 H 149 H 136 H Lactic Acid Calcium Phosphorus Total Bilirubin C-Reactive Protein NT-Pro-B Natriuret Pep Total Protein Albumin Urine WBC (Auto) Urine Creatinine 08/09/18 08/09/18 08/09/18 02:26 03:52 03:52 WBC 15.9 H RBC 2.87 L Hgb 9.6 L Hct 30.7 L MCV 107 H MCH 34 H MCHC 31 L RDW 17.8 H Lymph % (Auto) 3.9 L [place] % (Auto) 8.1 H Lymph # 0.6 L [place] # 1.3 H Seg Neutrophils % 87.1 H Seg Neuts % (Manual) Lymphocytes % (Manual) Monocytes % (Manual) Nucleated RBC % Seg Neutrophils # 13.9 H Seg Neutrophils # Man Lymphocytes # (Manual) Monocytes # (Manual) PT INR APTT D-Dimer Heparin Anti-Xa Level 0.25 L POC ABG pH POC ABG pCO2 POC ABG pO2 Sodium Potassium Chloride Carbon Dioxide BUN Creatinine Glucose POC Glucose 126 H Lactic Acid Calcium Phosphorus Total Bilirubin C-Reactive Protein NT-Pro-B Natriuret Pep Total Protein Albumin Urine WBC (Auto) Urine Creatinine 08/09/18 08/09/18 08/09/18 03:52 05:34 06:48 WBC RBC Hgb Hct MCV MCH MCHC RDW Lymph % (Auto) [place] % (Auto) Lymph # [place] # Seg Neutrophils % Seg Neuts % (Manual) Lymphocytes % (Manual) Monocytes % (Manual) Nucleated RBC % Seg Neutrophils # Seg Neutrophils # Man Lymphocytes # (Manual) Monocytes # (Manual) PT INR APTT D-Dimer Heparin Anti-Xa Level POC ABG pH POC ABG pCO2 57.5 H POC ABG pO2 58 L Sodium Potassium Chloride Carbon Dioxide 39 H BUN 26 H Creatinine 0.5 L Glucose 128 H POC Glucose 171 H Lactic Acid Calcium Phosphorus Total Bilirubin C-Reactive Protein NT-Pro-B Natriuret Pep Total Protein Albumin Urine WBC (Auto) Urine Creatinine 08/09/18 08/09/18 08/09/18 09:28 09:36 13:44 WBC RBC Hgb Hct MCV MCH MCHC RDW Lymph % (Auto) [place] % (Auto) Lymph # [place] # Seg Neutrophils % Seg Neuts % (Manual) Lymphocytes % (Manual) Monocytes % (Manual) Nucleated RBC % Seg Neutrophils # Seg Neutrophils # Man Lymphocytes # (Manual) Monocytes # (Manual) PT INR APTT D-Dimer Heparin Anti-Xa Level 0.26 L POC ABG pH POC ABG pCO2 POC ABG pO2 Sodium Potassium Chloride Carbon Dioxide BUN Creatinine Glucose POC Glucose 183 H 184 H Lactic Acid Calcium Phosphorus Total Bilirubin C-Reactive Protein NT-Pro-B Natriuret Pep Total Protein Albumin Urine WBC (Auto) Urine Creatinine 08/09/18 08/10/18 08/10/18 17:55 04:49 05:20 WBC RBC Hgb Hct MCV MCH MCHC RDW Lymph % (Auto) [place] % (Auto) Lymph # [place] # Seg Neutrophils % Seg Neuts % (Manual) Lymphocytes % (Manual) Monocytes % (Manual) Nucleated RBC % Seg Neutrophils # Seg Neutrophils # Man Lymphocytes # (Manual) Monocytes # (Manual) PT INR APTT D-Dimer Heparin Anti-Xa Level POC ABG pH POC ABG pCO2 59.9 H POC ABG pO2 59 L Sodium Potassium Chloride Carbon Dioxide BUN Creatinine Glucose POC Glucose 148 H 59 L Lactic Acid Calcium Phosphorus Total Bilirubin C-Reactive Protein NT-Pro-B Natriuret Pep Total Protein Albumin Urine WBC (Auto) Urine Creatinine 08/10/18 08/10/18 08/10/18 05:53 17:12 21:17 WBC RBC Hgb Hct MCV MCH MCHC RDW Lymph % (Auto) [place] % (Auto) Lymph # [place] # Seg Neutrophils % Seg Neuts % (Manual) Lymphocytes % (Manual) Monocytes % (Manual) Nucleated RBC % Seg Neutrophils # Seg Neutrophils # Man Lymphocytes # (Manual) Monocytes # (Manual) PT INR APTT D-Dimer Heparin Anti-Xa Level POC ABG pH POC ABG pCO2 POC ABG pO2 Sodium Potassium Chloride Carbon Dioxide BUN Creatinine Glucose POC Glucose 128 H 110 H 109 H Lactic Acid Calcium Phosphorus Total Bilirubin C-Reactive Protein NT-Pro-B Natriuret Pep Total Protein Albumin Urine WBC (Auto) Urine Creatinine 08/11/18 08/11/18 08/11/18 00:54 02:28 04:17 WBC RBC Hgb 7.8 L Hct 24.1 L D MCV MCH MCHC RDW Lymph % (Auto) [place] % (Auto) Lymph # [place] # Seg Neutrophils % Seg Neuts % (Manual) Lymphocytes % (Manual) Monocytes % (Manual) Nucleated RBC % Seg Neutrophils # Seg Neutrophils # Man Lymphocytes # (Manual) Monocytes # (Manual) PT INR APTT D-Dimer Heparin Anti-Xa Level 0.19 L POC ABG pH POC ABG pCO2 POC ABG pO2 Sodium Potassium Chloride Carbon Dioxide BUN Creatinine Glucose POC Glucose 124 H Lactic Acid Calcium Phosphorus Total Bilirubin C-Reactive Protein NT-Pro-B Natriuret Pep Total Protein Albumin Urine WBC (Auto) Urine Creatinine 08/11/18 08/11/18 08/11/18 05:10 07:42 10:27 WBC RBC Hgb Hct MCV MCH MCHC RDW Lymph % (Auto) [place] % (Auto) Lymph # [place] # Seg Neutrophils % Seg Neuts % (Manual) Lymphocytes % (Manual) Monocytes % (Manual) Nucleated RBC % Seg Neutrophils # Seg Neutrophils # Man Lymphocytes # (Manual) Monocytes # (Manual) PT INR APTT D-Dimer Heparin Anti-Xa Level 0.20 L POC ABG pH POC ABG pCO2 POC ABG pO2 Sodium Potassium Chloride Carbon Dioxide BUN Creatinine Glucose POC Glucose 150 H 156 H Lactic Acid Calcium Phosphorus Total Bilirubin C-Reactive Protein NT-Pro-B Natriuret Pep Total Protein Albumin Urine WBC (Auto) Urine Creatinine 08/11/18 08/11/18 08/11/18 13:54 15:06 18:13 WBC RBC Hgb Hct MCV MCH MCHC RDW Lymph % (Auto) [place] % (Auto) Lymph # [place] # Seg Neutrophils % Seg Neuts % (Manual) Lymphocytes % (Manual) Monocytes % (Manual) Nucleated RBC % Seg Neutrophils # Seg Neutrophils # Man Lymphocytes # (Manual) Monocytes # (Manual) PT INR APTT D-Dimer Heparin Anti-Xa Level POC ABG pH 7.471 H POC ABG pCO2 45.5 H POC ABG pO2 79 L Sodium Potassium Chloride Carbon Dioxide BUN Creatinine Glucose POC Glucose 177 H 143 H Lactic Acid Calcium Phosphorus Total Bilirubin C-Reactive Protein NT-Pro-B Natriuret Pep Total Protein Albumin Urine WBC (Auto) Urine Creatinine 08/11/18 08/11/18 08/11/18 18:33 21:22 Unknown WBC RBC Hgb Hct MCV MCH MCHC RDW Lymph % (Auto) [place] % (Auto) Lymph # [place] # Seg Neutrophils % Seg Neuts % (Manual) Lymphocytes % (Manual) Monocytes % (Manual) Nucleated RBC % Seg Neutrophils # Seg Neutrophils # Man Lymphocytes # (Manual) Monocytes # (Manual) PT INR APTT D-Dimer Heparin Anti-Xa Level 0.29 L POC ABG pH POC ABG pCO2 POC ABG pO2 Sodium 136 L Potassium Chloride 96.5 L Carbon Dioxide 32 H D BUN Creatinine 0.5 L Glucose 186 H POC Glucose 151 H Lactic Acid Calcium Phosphorus Total Bilirubin C-Reactive Protein NT-Pro-B Natriuret Pep Total Protein Albumin Urine WBC (Auto) Urine Creatinine 08/11/18 08/12/18 08/12/18 Unknown 02:09 05:29 WBC 12.1 H RBC 2.50 L Hgb 8.2 L Hct 25.7 L MCV 103 H MCH 33 H MCHC RDW 17.0 H Lymph % (Auto) 5.1 L [place] % (Auto) 9.5 H Lymph # 0.6 L [place] # 1.2 H Seg Neutrophils % 84.8 H Seg Neuts % (Manual) Lymphocytes % (Manual) Monocytes % (Manual) Nucleated RBC % Seg Neutrophils # 10.3 H Seg Neutrophils # Man Lymphocytes # (Manual) Monocytes # (Manual) PT INR APTT D-Dimer Heparin Anti-Xa Level POC ABG pH POC ABG pCO2 POC ABG pO2 Sodium Potassium Chloride Carbon Dioxide BUN Creatinine Glucose POC Glucose 159 H 136 H Lactic Acid Calcium Phosphorus Total Bilirubin C-Reactive Protein NT-Pro-B Natriuret Pep Total Protein Albumin Urine WBC (Auto) Urine Creatinine 08/12/18 08/12/18 07:33 09:59 WBC RBC Hgb Hct MCV MCH MCHC RDW Lymph % (Auto) [place] % (Auto) Lymph # [place] # Seg Neutrophils % Seg Neuts % (Manual) Lymphocytes % (Manual) Monocytes % (Manual) Nucleated RBC % Seg Neutrophils # Seg Neutrophils # Man Lymphocytes # (Manual) Monocytes # (Manual) PT INR APTT D-Dimer Heparin Anti-Xa Level POC ABG pH POC ABG pCO2 POC ABG pO2 Sodium Potassium Chloride Carbon Dioxide BUN Creatinine Glucose POC Glucose 138 H 157 H Lactic Acid Calcium Phosphorus Total Bilirubin C-Reactive Protein NT-Pro-B Natriuret Pep Total Protein Albumin Urine WBC (Auto) Urine Creatinine Allied health notes reviewed: RT
--- NOTE | 2018-08-12 12:23 | Progress Note ---
Assessment and Plan Patient is comfortable today and more alert. Denies any cardiac symptoms. Cardiac rhythm is stable cardiac status is stable. Heparin can be changed to a elliquis5 mg by mouth twice a day. - Patient Problems (1) Atrial fibrillation with RVR Status: Acute (2) CHF (congestive heart failure) Status: Acute Qualifiers: Heart failure type: systolic Heart failure chronicity: acute Qualified Code(s): I50.21 - Acute systolic (congestive) heart failure (3) COPD (chronic obstructive pulmonary disease) Status: Chronic (4) Hyperlipemia Status: Chronic Qualifiers: Hyperlipidemia type: Mixed hyperlipidemia (5) Hypertension Status: Chronic Qualifiers: Hypertension type: essential hypertension Qualified Code(s): I10 - Essential (primary) hypertension Subjective Date of service: 08/12/18 Principal diagnosis: Acute hypoxemic respiratory failure; A-fib with RVR; Possible CHF; H/O DVT Interval history: Patient is alert in no distress. No significant cardiac symptoms. Objective Vital Signs Temp Pulse Pulse Pulse Resp Resp BP 08/12/18 12:13 74 106/53 08/12/18 12:00 72 74 12 106/53 08/12/18 11:45 71 10 L 105/50 08/12/18 11:30 81 14 116/55 08/12/18 11:15 74 13 108/52 08/12/18 11:00 73 12 105/50 08/12/18 10:46 80 17 114/49 08/12/18 10:30 86 33 H 112/58 08/12/18 10:16 88 15 106/55 08/12/18 10:00 82 12 102/50 08/12/18 09:45 80 15 99/47 08/12/18 09:30 76 10 L 109/49 08/12/18 09:17 76 111/54 08/12/18 09:15 77 17 111/54 08/12/18 09:14 08/12/18 09:00 71 16 110/53 08/12/18 08:45 72 16 97/48 08/12/18 08:30 72 16 99/49 08/12/18 08:15 75 72 16 16 102/51 08/12/18 08:03 75 76 25 H 105/49 08/12/18 08:00 99.5 F 75 72 16 105/49 08/12/18 07:45 77 24 109/48 08/12/18 07:38 99.5 F 08/12/18 07:30 80 28 H 106/53 08/12/18 07:15 74 26 H 107/51 08/12/18 07:00 72 24 104/53 08/12/18 06:45 72 21 100/51 08/12/18 06:30 73 25 H 104/55 08/12/18 06:15 71 27 H 101/52 08/12/18 06:00 71 26 H 101/53 08/12/18 05:45 71 25 H 105/53 08/12/18 05:30 72 24 101/53 08/12/18 05:16 74 24 100/53 08/12/18 05:00 71 26 H 100/53 08/12/18 04:45 73 25 H 100/53 08/12/18 04:30 74 21 104/55 08/12/18 04:28 80 99/53 08/12/18 04:15 75 23 103/52 08/12/18 04:00 75 75 23 104/53 08/12/18 03:46 79 28 H 108/57 08/12/18 03:30 108/57 08/12/18 03:24 99.9 F H 08/12/18 03:16 74 21 108/57 08/12/18 03:00 75 21 103/52 08/12/18 02:46 75 20 106/50 08/12/18 02:30 76 20 106/50 08/12/18 02:16 77 23 106/50 08/12/18 02:00 81 22 116/54 08/12/18 01:45 75 22 98/48 08/12/18 01:30 76 19 100/47 08/12/18 01:00 76 22 100/48 08/12/18 00:30 76 21 96/47 08/12/18 00:00 79 79 21 98/48 08/11/18 23:44 82 21 112/53 08/11/18 23:30 84 25 H 106/49 08/11/18 23:26 84 25 H 104/49 08/11/18 23:00 93 H 25 H 118/54 08/11/18 22:42 101.6 F H 08/11/18 22:30 91 H 12 115/56 08/11/18 22:00 8 L 118/79 08/11/18 21:52 88 14 08/11/18 21:30 109 H 15 124/71 08/11/18 21:00 108 H 26 H 141/64 08/11/18 20:42 87 87 12 12 124/69 08/11/18 20:30 121 H 22 166/58 08/11/18 20:00 101 F H 85 90 10 L 113/52 08/11/18 19:41 87 08/11/18 19:30 87 12 137/30 08/11/18 19:00 87 18 112/62 08/11/18 18:30 80 10 L 114/54 08/11/18 18:00 78 9 L 112/51 08/11/18 17:37 82 16 116/53 08/11/18 17:36 08/11/18 17:30 83 14 111/53 08/11/18 17:00 80 11 L 114/53 08/11/18 16:30 77 12 102/51 08/11/18 16:00 99.7 F H 76 8 L 107/48 08/11/18 15:51 99.7 F H 08/11/18 15:30 78 9 L 101/47 08/11/18 15:00 83 8 L 109/49 08/11/18 14:30 83 10 L 111/45 08/11/18 14:00 80 10 L 102/46 08/11/18 13:30 85 13 115/52 08/11/18 13:07 89 14 124/52 08/11/18 13:00 82 23 103/51 08/11/18 12:30 81 21 100/48 Pulse Ox Pulse Ox 08/12/18 12:13 92 08/12/18 12:00 95 08/12/18 11:45 91 08/12/18 11:30 91 08/12/18 11:15 90 08/12/18 11:00 90 08/12/18 10:46 88 08/12/18 10:30 91 08/12/18 10:16 87 08/12/18 10:00 92 08/12/18 09:45 93 08/12/18 09:30 91 08/12/18 09:17 96 08/12/18 09:15 100 08/12/18 09:14 94 08/12/18 09:00 100 08/12/18 08:45 98 08/12/18 08:30 97 08/12/18 08:15 92 08/12/18 08:03 93 08/12/18 08:00 98 08/12/18 07:45 89 08/12/18 07:38 08/12/18 07:30 95 08/12/18 07:15 08/12/18 07:00 95 08/12/18 06:45 99 08/12/18 06:30 95 08/12/18 06:15 98 08/12/18 06:00 97 08/12/18 05:45 95 08/12/18 05:30 08/12/18 05:16 97 08/12/18 05:00 96 08/12/18 04:45 95 08/12/18 04:30 94 08/12/18 04:28 08/12/18 04:15 93 08/12/18 04:00 96 08/12/18 03:46 94 08/12/18 03:30 95 08/12/18 03:24 08/12/18 03:16 93 08/12/18 03:00 93 08/12/18 02:46 98 08/12/18 02:30 94 08/12/18 02:16 93 08/12/18 02:00 94 08/12/18 01:45 91 08/12/18 01:30 95 08/12/18 01:00 95 08/12/18 00:30 92 08/12/18 00:00 93 08/11/18 23:44 93 08/11/18 23:30 08/11/18 23:26 92 08/11/18 23:00 97 08/11/18 22:42 08/11/18 22:30 98 08/11/18 22:00 95 08/11/18 21:52 08/11/18 21:30 93 08/11/18 21:00 93 08/11/18 20:42 92 08/11/18 20:30 86 08/11/18 20:00 94 08/11/18 19:41 08/11/18 19:30 94 08/11/18 19:00 93 08/11/18 18:30 96 08/11/18 18:00 94 08/11/18 17:37 94 08/11/18 17:36 93 08/11/18 17:30 95 08/11/18 17:00 94 08/11/18 16:30 95 08/11/18 16:00 95 08/11/18 15:51 08/11/18 15:30 94 08/11/18 15:00 93 08/11/18 14:30 91 08/11/18 14:00 91 08/11/18 13:30 92 08/11/18 13:07 92 08/11/18 13:00 93 08/11/18 12:30 93 - Physical Examination General: No Apparent Distress, Other (tracheostomy in place. Patient is alert and appears comfortable) HEENT: Positive: EOMI, Normocephaly, Mucus Membranes Moist Neck: Positive: neck supple, trachea midline. Negative: JVD/HJR Cardiac: Positive: Regular Rhythm Lungs: Positive: clear to auscultation Neuro: Positive: Other (trached, sedated) Abdomen: Positive: Soft, Active Bowel Sounds Skin: Positive: Clear. Negative: Rash, Wound Musculoskeletal: No Fluid Collection, Normal Range of Motion Extremities: Present: upper extr. pulses, lower extr. pulses. Absent: edema - Labs and Meds CBC 08/11/18 Range/Units Unknown WBC 12.1 H (4.5-11.0) K/mm3 RBC 2.50 L (3.65-5.03) M/mm3 Hgb 8.2 L (11.8-15.2) gm/dl Hct 25.7 L (35.5-45.6) % Plt Count 259 (140-440) K/mm3 Lymph # 0.6 L (1.2-5.4) K/mm3 [place] # 1.2 H (0.0-0.8) K/mm3 Eos # 0.0 (0.0-0.4) K/mm3 Baso # 0.0 (0.0-0.1) K/mm3 Comprehensive Metabolic Panel 08/11/18 Range/Units Unknown Sodium 136 L (137-145) mmol/L Potassium 4.1 (3.6-5.0) mmol/L Chloride 96.5 L (98-107) mmol/L Carbon Dioxide 32 H D (22-30) mmol/L BUN 16 (9-20) mg/dL Creatinine 0.5 L (0.8-1.5) mg/dL Glucose 186 H (75-100) mg/dL Calcium 8.4 (8.4-10.2) mg/dL - Imaging and Cardiology EKG: report reviewed, image reviewed Echo: report reviewed ( 07/27/2018 EF 60-65%, asymmetric septal hypertrophy, mild TR. 05/2017 showed EF 55-60%, grade 1 diastolic dysfunction, mild TR, RVSP 22mmHg. 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 Treat medically. ) - Allied health notes Allied health notes reviewed: RT
--- NOTE | 2018-08-12 12:27 | Progress Note ---
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 Source unclear. Patient does have evidence of pneumonia however sputum cultures not concordant and grew pseudomonas aeruginosa and MSSA. R charles cardiology note, REGAN was negative. Previously received Ceftriaxone and Vancomycin, followed by Cefepime, completed. 2) Acute respiratory failure secondary to congestive heart failure and pneu monia: completed IV cefepime x 10 days to cover both MSSA and Pseudomonas. now s/p trach and PEG. 3) CARLEE, present on admission, now resolved. 4) New sepsis, fever with leucocytosis: Unclear etiology. UA without infection, CXR unchanged, WBC stable to slightly improving, blood cultures negative thus far. Continue to monitor off abx for now. Recs: clinically appears stable UA without infection, CXR unchanged, WBC stable to slightly improving, blood cultures negative thus far. Continue to monitor off abx for now. Will follow. Rhea Ro MD [facility] C: [phone] O: [phone] F: [phone] Subjective Date of service: 08/12/18 Principal diagnosis: Acute hypoxemic respiratory failure; A-fib with RVR; Possible CHF; H/O DVT Interval history: appears more awake today. Low grade temps +, on tylenol. Denies any pain, able to respond to basic commands. Objective - Exam Narrative Exam: Physical Exam: Constitutional: more awake, on vent Head, Ears, Nose: Normocephalic, atraumatic. External ears, nose normal Eyes: Conjunctivae/corneas clear. No icterus. No ptosis. Neck: trach + Oral:no thrush, no ulcers Cardiovascular: S1, S2 normal Respiratory: rare scattered rhonchi, no crackles or wheeze GI: Soft, bowel sounds normal. No peritoneal signs. PEG tube + Musculoskeletal: trace pedal edema, no cyanosis. Skin: No rash or abscess Hem/Lymphatic: No palpable cervical or supraclavicular nodes. No lymphangitis Psych: calm, no agitation Neurological: more awake, on vent, able to follow basic commands - Constitutional Vitals: Vital Signs Temp Pulse Resp BP Pulse Ox 99.5 F 74 28 H 106/53 92 08/12/18 08:00 08/12/18 12:13 08/12/18 12:00 08/12/18 12:13 08/12/18 12:13 Temperature -Last 24 Hours Temperature 99.5 F Temperature 99.5 F Temperature 99.9 F Temperature 101.6 F Temperature 101 F Temperature 99.7 F Temperature 99.7 F - Labs CBC & Chem 7: 08/11/18 Unknown 08/11/18 Unknown Labs: Abnormal lab results 08/11/18 08/11/18 08/11/18 Range/Units 13:54 15:06 18:13 WBC (4.5-11.0) K/mm3 RBC (3.65-5.03) M/mm3 Hgb (11.8-15.2) gm/dl Hct (35.5-45.6) % MCV (84-94) fl MCH (28-32) pg RDW (13.2-15.2) % Lymph % (Auto) (13.4-35.0) % [place] % (Auto) (0.0-7.3) % Lymph # (1.2-5.4) K/mm3 [place] # (0.0-0.8) K/mm3 Seg Neutrophils % (40.0-70.0) % Seg Neutrophils # (1.8-7.7) K/mm3 Heparin Anti-Xa Level (0.3-0.7) U.I./ml POC ABG pH 7.471 H (7.35-7.45) POC ABG pCO2 45.5 H (35-45) POC ABG pO2 79 L (80-105) Sodium (137-145) mmol/L Chloride (98-107) mmol/L Carbon Dioxide (22-30) mmol/L Creatinine (0.8-1.5) mg/dL Glucose (75-100) mg/dL POC Glucose 177 H 143 H (70-105) 08/11/18 08/11/18 08/11/18 Range/Units 18:33 21:22 Unknown WBC (4.5-11.0) K/mm3 RBC (3.65-5.03) M/mm3 Hgb (11.8-15.2) gm/dl Hct (35.5-45.6) % MCV (84-94) fl MCH (28-32) pg RDW (13.2-15.2) % Lymph % (Auto) (13.4-35.0) % [place] % (Auto) (0.0-7.3) % Lymph # (1.2-5.4) K/mm3 [place] # (0.0-0.8) K/mm3 Seg Neutrophils % (40.0-70.0) % Seg Neutrophils # (1.8-7.7) K/mm3 Heparin Anti-Xa Level 0.29 L (0.3-0.7) U.I./ml POC ABG pH (7.35-7.45) POC ABG pCO2 (35-45) POC ABG pO2 (80-105) Sodium 136 L (137-145) mmol/L Chloride 96.5 L (98-107) mmol/L Carbon Dioxide 32 H D (22-30) mmol/L Creatinine 0.5 L (0.8-1.5) mg/dL Glucose 186 H (75-100) mg/dL POC Glucose 151 H (70-105) 08/11/18 08/12/18 08/12/18 Range/Units Unknown 02:09 05:29 WBC 12.1 H (4.5-11.0) K/mm3 RBC 2.50 L (3.65-5.03) M/mm3 Hgb 8.2 L (11.8-15.2) gm/dl Hct 25.7 L (35.5-45.6) % MCV 103 H (84-94) fl MCH 33 H (28-32) pg RDW 17.0 H (13.2-15.2) % Lymph % (Auto) 5.1 L (13.4-35.0) % [place] % (Auto) 9.5 H (0.0-7.3) % Lymph # 0.6 L (1.2-5.4) K/mm3 [place] # 1.2 H (0.0-0.8) K/mm3 Seg Neutrophils % 84.8 H (40.0-70.0) % Seg Neutrophils # 10.3 H (1.8-7.7) K/mm3 Heparin Anti-Xa Level (0.3-0.7) U.I./ml POC ABG pH (7.35-7.45) POC ABG pCO2 (35-45) POC ABG pO2 (80-105) Sodium (137-145) mmol/L Chloride (98-107) mmol/L Carbon Dioxide (22-30) mmol/L Creatinine (0.8-1.5) mg/dL Glucose (75-100) mg/dL POC Glucose 159 H 136 H (70-105) 08/12/18 08/12/18 Range/Units 07:33 09:59 WBC (4.5-11.0) K/mm3 RBC (3.65-5.03) M/mm3 Hgb (11.8-15.2) gm/dl Hct (35.5-45.6) % MCV (84-94) fl MCH (28-32) pg RDW (13.2-15.2) % Lymph % (Auto) (13.4-35.0) % [place] % (Auto) (0.0-7.3) % Lymph # (1.2-5.4) K/mm3 [place] # (0.0-0.8) K/mm3 Seg Neutrophils % (40.0-70.0) % Seg Neutrophils # (1.8-7.7) K/mm3 Heparin Anti-Xa Level (0.3-0.7) U.I./ml POC ABG pH (7.35-7.45) POC ABG pCO2 (35-45) POC ABG pO2 (80-105) Sodium (137-145) mmol/L Chloride (98-107) mmol/L Carbon Dioxide (22-30) mmol/L Creatinine (0.8-1.5) mg/dL Glucose (75-100) mg/dL POC Glucose 138 H 157 H (70-105) - Imaging and cardiology Chest x-ray: report reviewed, image reviewed (stable findings, trach +)
--- NOTE | 2018-08-12 13:57 | Progress Note ---
Assessment and Plan Assessment and plan: Sepsis. Previous Blood cultures reveal Streptococcus anginosus. New sepsis, fever with leucocytosis: Unclear etiology. UA without infection, CXR unchanged, WBC stable to slightly improving, blood cultures negative thus far. Continue to monitor off abx for now. Acute kidney injury. Etiology secondary to above. Continue to monitor creatinine. Left lower lobe pneumonia. Continue antibiotics and follow chest x-ray. Sputum culture revealed Pseudomonas and MSSA Acute hypoxemic respiratory failure. Etiology secondary to above. Continue on mechanical ventilation and weaning per pulmonary. Follow-up serial chest x-ray and ABGs. Pt is scheduled for tracheostomy and PEG tube placement this am Atrial fibrillation. Continue amiodarone and diltiazem. Cardiology following. REGAN negative Acute renal failure. Etiology likely secondary to sepsis/ATN. Renal ultrasound unremarkable. COPD exacerbation. Continue bronchodilators/nebulizers. IV steroids. Hypertension. Resume antihypertensive medications as needed. Hyperlipidemia. Peripheral vascular disease. The high probability of a clinically significant, sudden or life threatening deterioration of the [respiratory] system(s) required my full and direct attention, intervention and personal management. The aggregate critical care time was [33] minutes. This time is in addition to time spent performing reported procedures but includes the following: [x] Data Review and interpretation [x] Patient assessment and monitoring of vital signs [x] Documentation [x] Medication orders and management History Interval history: 73 YO Male with H/O COPD, PVD, HTN, HLD, Seizure Disorder, Skin Cancer presents to ED for evaluation. Pt states that he has experienced shortness and chest pa lpitations over the past 2 days with worsening symptoms over the past 1 day. Pt acknowledges decreased exercise tolerance, as well as dyspnea on exertion. Pt was seen and evaluated by his nail kegger today and was sent to [facility] ED for further care and evaluation. Pt denies fever, chills, leg swelling, calf pain, CP with deep breathing, hemoptysis, Prolonged air/car travel, or immobility, Back Pain, Syncope, Lightheadedness, recent ill contacts, unintentional weight loss, night sweats, or bone pain. Pt seen and evaluated in ED and found to have Atrial Fib with RVR refractory to cardizem drip, but improved with Amiodarone Drip, Acute Hypoxemic Respiratory Failure, SIRS. Pt admitted to ICU. The patient later after admission had further decompensation with respiratory distress. Patient reportedly was satting 60-70% on a nonrebreather and had to be emergently intubated. The patient remains intubated on mechanical ventilation Hospitalist Physical - Constitutional Vitals: Temp Pulse Resp BP Pulse Ox 99.5 F 76 28 H 110/54 92 08/12/18 08:00 08/12/18 12:38 08/12/18 12:00 08/12/18 12:38 08/12/18 12:13 General appearance: Present: other (intubated on mechanical ventilation) - Neck Neck: Present: supple, normal ROM - Respiratory Respiratory effort: normal Respiratory: bilateral: CTA - Cardiovascular Rhythm: regular Heart Sounds: Present: S1 & S2. Absent: gallop, rub - Extremities Extremities: no ischemia, No edema, Full ROM - Abdominal General gastrointestinal: soft, non-tender, non-distended, normal bowel sounds - Integumentary Integumentary: Present: clear, warm, dry Results - Labs CBC & Chem 7: 08/11/18 Unknown 08/11/18 Unknown Labs: Laboratory Last Values WBC 12.1 K/mm3 (4.5-11.0) H 08/11/18 Unknown RBC 2.50 M/mm3 (3.65-5.03) L 08/11/18 Unknown Hgb 8.2 gm/dl (11.8-15.2) L 08/11/18 Unknown Hct 25.7 % (35.5-45.6) L 08/11/18 Unknown MCV 103 fl (84-94) H 08/11/18 Unknown MCH 33 pg (28-32) H 08/11/18 Unknown MCHC 32 % (32-34) 08/11/18 Unknown RDW 17.0 % (13.2-15.2) H 08/11/18 Unknown Plt Count 259 K/mm3 (140-440) 08/11/18 Unknown Lymph % (Auto) 5.1 % (13.4-35.0) L 08/11/18 Unknown Hamblen % (Auto) 9.5 % (0.0-7.3) H 08/11/18 Unknown Eos % (Auto) 0.3 % (0.0-4.3) 08/11/18 Unknown Baso % (Auto) 0.3 % (0.0-1.8) 08/11/18 Unknown Lymph # 0.6 K/mm3 (1.2-5.4) L 08/11/18 Unknown Hamblen # 1.2 K/mm3 (0.0-0.8) H 08/11/18 Unknown Eos # 0.0 K/mm3 (0.0-0.4) 08/11/18 Unknown Baso # 0.0 K/mm3 (0.0-0.1) 08/11/18 Unknown Add Manual Diff Complete 08/08/18 02:09 Total Counted 100 08/08/18 02:09 Seg Neutrophils % 84.8 % (40.0-70.0) H 08/11/18 Unknown Seg Neuts % (Manual) 73.0 % (40.0-70.0) H 08/08/18 02:09 Band Neutrophils % 5.0 % 08/08/18 02:09 Lymphocytes % (Manual) 9.0 % (13.4-35.0) L 08/08/18 02:09 Reactive Lymphs % (Man) 0 % 08/08/18 02:09 Monocytes % (Manual) 10.0 % (0.0-7.3) H 08/08/18 02:09 Eosinophils % (Manual) 0 % (0.0-4.3) 08/08/18 02:09 Basophils % (Manual) 0 % (0.0-1.8) 08/08/18 02:09 Metamyelocytes % 3.0 % 08/08/18 02:09 Myelocytes % 0 % 08/08/18 02:09 Promyelocytes % 0 % 08/08/18 02:09 Blast Cells % 0 % 08/08/18 02:09 Nucleated RBC % Not Reportable 08/08/18 02:09 Seg Neutrophils # 10.3 K/mm3 (1.8-7.7) H 08/11/18 Unknown Seg Neutrophils # Man 10.7 K/mm3 (1.8-7.7) H 08/08/18 02:09 Band Neutrophils # 0.7 K/mm3 08/08/18 02:09 Lymphocytes # (Manual) 1.3 K/mm3 (1.2-5.4) 08/08/18 02:09 Abs React Lymphs (Man) 0.0 K/mm3 08/08/18 02:09 Monocytes # (Manual) 1.5 K/mm3 (0.0-0.8) H 08/08/18 02:09 Eosinophils # (Manual) 0.0 K/mm3 (0.0-0.4) 08/08/18 02:09 Basophils # (Manual) 0.0 K/mm3 (0.0-0.1) 08/08/18 02:09 Metamyelocytes # 0.4 K/mm3 08/08/18 02:09 Myelocytes # 0.0 K/mm3 08/08/18 02:09 Promyelocytes # 0.0 K/mm3 08/08/18 02:09 Blast Cells # 0.0 K/mm3 08/08/18 02:09 Pathologist Review 07/28/18 06:01 WBC Morphology Not Reportable 08/08/18 02:09 Hypersegmented Neuts Not Reportable 08/08/18 02:09 Hyposegmented Neuts Not Reportable 08/08/18 02:09 Hypogranular Neuts Not Reportable 08/08/18 02:09 Smudge Cells Not Reportable 08/08/18 02:09 Toxic Granulation Not Reportable 08/08/18 02:09 Toxic Vacuolation Not Reportable 08/08/18 02:09 Dohle Bodies Not Reportable 08/08/18 02:09 Pelger-Huet Anomaly Not Reportable 08/08/18 02:09 Janiya Rods Not Reportable 08/08/18 02:09 Platelet Estimate Appears normal 08/08/18 02:09 Clumped Platelets Not Reportable 08/08/18 02:09 Plt Clumps, EDTA Not Reportable 08/08/18 02:09 Large Platelets Not Reportable 08/08/18 02:09 Giant Platelets Not Reportable 08/08/18 02:09 Platelet Satelliting Not Reportable 08/08/18 02:09 Plt Morphology Comment Not Reportable 08/08/18 02:09 RBC Morphology Not Reportable 08/08/18 02:09 Dimorphic RBCs Not Reportable 08/08/18 02:09 Polychromasia Not Reportable 08/08/18 02:09 Hypochromasia Few 08/08/18 02:09 Poikilocytosis Not Reportable 08/08/18 02:09 Anisocytosis 1+ 08/08/18 02:09 Microcytosis Not Reportable 08/08/18 02:09 Macrocytosis Not Reportable 08/08/18 02:09 Spherocytes Not Reportable 08/08/18 02:09 Pappenheimer Bodies Not Reportable 08/08/18 02:09 Sickle Cells Not Reportable 08/08/18 02:09 Target Cells Not Reportable 08/08/18 02:09 Tear Drop Cells Not Reportable 08/08/18 02:09 Ovalocytes Not Reportable 08/08/18 02:09 Stomatocytes Few 08/08/18 02:09 Helmet Cells Not Reportable 08/08/18 02:09 Lr-[place] Bodies Not Reportable 08/08/18 02:09 Sieper Rings Not Reportable 08/08/18 02:09 Armando Cells Not Reportable 08/08/18 02:09 Bite Cells Not Reportable 08/08/18 02:09 Crenated Cell Not Reportable 08/08/18 02:09 Elliptocytes Not Reportable 08/08/18 02:09 Acanthocytes (Spur) Not Reportable 08/08/18 02:09 Rouleaux Not Reportable 08/08/18 02:09 Hemoglobin C Crystals Not Reportable 08/08/18 02:09 Schistocytes Not Reportable 08/08/18 02:09 Malaria parasites Not Reportable 08/08/18 02:09 Jigar Bodies Not Reportable 08/08/18 02:09 Hem Pathologist Commnt No 08/08/18 02:09 PT 13.4 Sec. (12.2-14.9) 08/07/18 15:08 INR 0.98 (0.87-1.13) 08/07/18 15:08 APTT 23.2 Sec. (24.2-36.6) L 08/07/18 15:08 D-Dimer 798.17 ng/mlDDU (0-234) H 07/27/18 15:52 Heparin Anti-Xa Level 0.30 U.I./ml (0.3-0.7) 08/12/18 01:44 POC ABG pH 7.471 (7.35-7.45) H 08/11/18 15:06 POC ABG pCO2 45.5 (35-45) H 08/11/18 15:06 POC ABG pO2 79 (80-105) L 08/11/18 15:06 POC ABG HCO3 33.2 08/11/18 15:06 POC ABG Total CO2 35 08/11/18 15:06 POC ABG O2 Sat 96 08/11/18 15:06 POC ABG Base Excess 10 08/11/18 15:06 FiO2 45 % 08/11/18 15:06 Sodium 136 mmol/L (137-145) L 08/11/18 Unknown Potassium 4.1 mmol/L (3.6-5.0) 08/11/18 Unknown Chloride 96.5 mmol/L (98-107) L 08/11/18 Unknown Carbon Dioxide 32 mmol/L (22-30) H D 08/11/18 Unknown Anion Gap 12 mmol/L 08/11/18 Unknown BUN 16 mg/dL (9-20) 08/11/18 Unknown Creatinine 0.5 mg/dL (0.8-1.5) L 08/11/18 Unknown Estimated GFR > 60 ml/min 08/11/18 Unknown BUN/Creatinine Ratio 32 % 08/11/18 Unknown Glucose 186 mg/dL (75-100) H 08/11/18 Unknown POC Glucose 157 (70-105) H 08/12/18 09:59 Lactic Acid 1.30 mmol/L (0.7-2.0) 08/03/18 16:48 Calcium 8.4 mg/dL (8.4-10.2) 08/11/18 Unknown Phosphorus 2.80 mg/dL (2.5-4.5) 08/06/18 05:17 Magnesium 2.30 mg/dL (1.7-2.3) 08/06/18 05:17 Total Bilirubin 1.30 mg/dL (0.1-1.2) H 07/27/18 12:59 AST 15 units/L (5-40) 07/27/18 12:59 ALT 16 units/L (7-56) 07/27/18 12:59 Alkaline Phosphatase 62 units/L (35-129) 07/27/18 12:59 Troponin T < 0.010 ng/mL (0.00-0.029) 07/27/18 12:59 C-Reactive Protein 2.30 mg/dL (0.00-1.30) H 08/03/18 16:48 NT-Pro-B Natriuret Pep 3913 pg/mL (0-900) H 07/27/18 12:59 Total Protein 6.2 g/dL (6.3-8.2) L 07/27/18 12:59 Albumin 3.6 g/dL (3.9-5) L 07/27/18 12:59 Albumin/Globulin Ratio 1.4 % 07/27/18 12:59 Triglycerides 64 mg/dL (2-149) 08/08/18 14:02 TSH 1.180 mlU/mL (0.270-4.200) 07/27/18 15:52 Free T4 1.28 ng/dL (0.76-1.46) 07/27/18 15:52 Urine Color Yellow (Yellow) 08/11/18 12:50 Urine Turbidity Clear (Clear) 08/11/18 12:50 Urine pH 6.0 (5.0-7.0) 08/11/18 12:50 Ur Specific Aston 1.015 (1.003-1.030) 08/11/18 12:50 Urine Protein <15 mg/dl mg/dL (Negative) 08/11/18 12:50 Urine Glucose (UA) 50 mg/dL (Negative) 08/11/18 12:50 Urine Ketones Neg mg/dL (Negative) 08/11/18 12:50 Urine Blood Neg (Negative) 08/11/18 12:50 Urine Nitrite Neg (Negative) 08/11/18 12:50 Urine Bilirubin Neg (Negative) 08/11/18 12:50 Urine Urobilinogen 4.0 mg/dL (<2.0) 08/11/18 12:50 Ur Leukocyte Esterase Neg (Negative) 08/11/18 12:50 Urine WBC (Auto) 2.0 /HPF (0.0-6.0) 08/11/18 12:50 Urine RBC (Auto) 2.0 /HPF (0.0-6.0) 08/11/18 12:50 U Epithel Cells (Auto) 2.0 /HPF (0-13.0) 07/29/18 09:24 Urine Bacteria (Auto) 1+ /HPF (Negative) 08/11/18 12:50 Urine Mucus Few /HPF 08/11/18 12:50 Urine Yeast (Budding) 1+ /HPF 07/29/18 09:24 Urine Creatinine 72.3 mg/dL (0.1-20.0) H 07/29/18 09:24 Urine Sodium 12 mmol/L 07/29/18 09:24 Random Vancomycin 9.2 ug/mL (0-40.0) 07/29/18 04:21 Nutrition/Malnutrition Assess - Dietary Evaluation Nutrition/Malnutrition Findings: Nutrition Notes Start: 07/28/18 10:54 Freq: Status: Active Protocol: Document 08/10/18 15:05 OL (Rec: 08/10/18 15:09 OL [id number]) Nutrition Notes Initial or Follow up Reassessment Current Diagnoses Acute Kidney Injury COPD Sepsis Hypertension Heart Failure Respiratory Failure Other Pertinent Diagnosis Hx of Skin Cancer Current Diet Nepro at 50ml/hr Labs/Tests BUN 26 Cr 0.5 Medications propofol at 5.062mL/hr (113.64 lipid kcal ) Height 5 ft 8 in Weight 84.1 kg [place] Body Weight (lbs) 154.0 BMI 28.1 Subjective/Other Information Nepro on hold at time of visit 2/2 pt. having PEG placed. TF to restart later this afternoon. Per RN, pt. had been tolerating TF well at goal rate prior to PEG placement. Burn Absent Trauma Absent #1 Nutrition Diagnoses Inadequate oral intake Diagnosis Progress(for reassessment Continues documentation) Is patient on ventilator? Yes Is Patient Ambulatory and/or Out of Bed No REE-([facility]-confined to bed) [phone] Calculation Used for Recommendations [facility] Additional Notes protein (1.2-2g/kg): 101-168g fluid: 1mL/kcal Nutrition Intervention Change Diet Order: Continue TF Nutrition Support: Nepro at 50mL/hr 250 mL free water flush q4h or per MD. Kcal 2,160 Protein (gm) 97 Fluid (mL) 872 Goal #1 TF tolerance and rate Goal #2 Meet at least 80% of kcal needs and 80-100% of protein needs. Follow-Up By: 08/16/18 Additional Comments Peg and Trach done. Patient remain in stable condition
[2018-08-12] MEDS: ELIQUIS PO SCH (14:05)
[2018-08-12] MEDS ORDERED: SIMPLE SYRUP FEEDTUBE PRN ×2 (14:11)
[2018-08-12] MEDS ORDERED: PANCREAZE DR 10,500 UNIT FEEDTUBE PRN (14:11)
[2018-08-12] MEDS ORDERED: SODIUM BICARBONATE FEEDTUBE PRN (14:11)
--- NOTE | 2018-08-12 16:01 | Progress Note ---
Assessment and Plan - Patient Problems (1) Acute respiratory failure Current Visit: Yes Status: Acute Qualifiers: Respiratory failure complication: hypoxia Qualified Code(s): J96.01 - Acute respiratory failure with hypoxia Plan to address problem: Pt stable. s/p trach/PEG - 08/11/18 - POD#2. No signs of complications. Hgb stable while on anticoagulation. Ok for full anticoagulation from our standpoint. Will sign off. Please call with questions. Subjective Date of service: 08/12/18 Patient Reports: Positive: other (no new events) Objective Vital Signs - 12hr 08/12/18 08/12/18 08/12/18 04:15 04:28 04:30 Temperature Pulse Rate 75 80 74 Pulse Rate [ Bilateral] Pulse Rate [ From Monitor] Respiratory 23 21 Rate Respiratory Rate [Bilateral ] Blood Pressure 103/52 99/53 104/55 O2 Sat by Pulse 93 94 Oximetry O2 Sat by Pulse Oximetry [ Assessment] 08/12/18 08/12/18 08/12/18 04:45 05:00 05:16 Temperature Pulse Rate 73 71 74 Pulse Rate [ Bilateral] Pulse Rate [ From Monitor] Respiratory 25 H 26 H 24 Rate Respiratory Rate [Bilateral ] Blood Pressure 100/53 100/53 100/53 O2 Sat by Pulse 95 96 97 Oximetry O2 Sat by Pulse Oximetry [ Assessment] 08/12/18 08/12/18 08/12/18 05:30 05:45 06:00 Temperature Pulse Rate 72 71 71 Pulse Rate [ Bilateral] Pulse Rate [ From Monitor] Respiratory 24 25 H 26 H Rate Respiratory Rate [Bilateral ] Blood Pressure 101/53 105/53 101/53 O2 Sat by Pulse 95 97 Oximetry O2 Sat by Pulse Oximetry [ Assessment] 08/12/18 08/12/18 08/12/18 06:15 06:30 06:45 Temperature Pulse Rate 71 73 72 Pulse Rate [ Bilateral] Pulse Rate [ From Monitor] Respiratory 27 H 25 H 21 Rate Respiratory Rate [Bilateral ] Blood Pressure 101/52 104/55 100/51 O2 Sat by Pulse 98 95 99 Oximetry O2 Sat by Pulse Oximetry [ Assessment] 08/12/18 08/12/18 08/12/18 07:00 07:15 07:30 Temperature Pulse Rate 72 74 80 Pulse Rate [ Bilateral] Pulse Rate [ From Monitor] Respiratory 24 26 H 28 H Rate Respiratory Rate [Bilateral ] Blood Pressure 104/53 107/51 106/53 O2 Sat by Pulse 95 95 Oximetry O2 Sat by Pulse Oximetry [ Assessment] 08/12/18 08/12/18 08/12/18 07:38 07:45 08:00 Temperature 99.5 F 99.5 F Pulse Rate 77 75 Pulse Rate [ Bilateral] Pulse Rate [ 72 From Monitor] Respiratory 24 16 Rate Respiratory Rate [Bilateral ] Blood Pressure 109/48 105/49 O2 Sat by Pulse 89 98 Oximetry O2 Sat by Pulse Oximetry [ Assessment] 08/12/18 08/12/18 08/12/18 08:03 08:15 08:30 Temperature Pulse Rate 75 75 72 Pulse Rate [ 76 72 Bilateral] Pulse Rate [ From Monitor] Respiratory 16 16 Rate Respiratory 25 H 16 Rate [Bilateral ] Blood Pressure 105/49 102/51 99/49 O2 Sat by Pulse 93 92 97 Oximetry O2 Sat by Pulse Oximetry [ Assessment] 08/12/18 08/12/18 08/12/18 08:45 09:00 09:14 Temperature Pulse Rate 72 71 Pulse Rate [ Bilateral] Pulse Rate [ From Monitor] Respiratory 16 16 Rate Respiratory Rate [Bilateral ] Blood Pressure 97/48 110/53 O2 Sat by Pulse 98 100 Oximetry O2 Sat by Pulse 94 Oximetry [ Assessment] 08/12/18 08/12/18 08/12/18 09:15 09:17 09:30 Temperature Pulse Rate 77 76 76 Pulse Rate [ Bilateral] Pulse Rate [ From Monitor] Respiratory 17 10 L Rate Respiratory Rate [Bilateral ] Blood Pressure 111/54 111/54 109/49 O2 Sat by Pulse 100 96 91 Oximetry O2 Sat by Pulse Oximetry [ Assessment] 08/12/18 08/12/18 08/12/18 09:45 10:00 10:16 Temperature Pulse Rate 80 82 88 Pulse Rate [ Bilateral] Pulse Rate [ From Monitor] Respiratory 15 12 15 Rate Respiratory Rate [Bilateral ] Blood Pressure 99/47 102/50 106/55 O2 Sat by Pulse 93 92 87 Oximetry O2 Sat by Pulse Oximetry [ Assessment] 08/12/18 08/12/18 08/12/18 10:30 10:46 11:00 Temperature Pulse Rate 86 80 73 Pulse Rate [ Bilateral] Pulse Rate [ From Monitor] Respiratory 33 H 17 12 Rate Respiratory Rate [Bilateral ] Blood Pressure 112/58 114/49 105/50 O2 Sat by Pulse 91 88 90 Oximetry O2 Sat by Pulse Oximetry [ Assessment] 08/12/18 08/12/18 08/12/18 11:15 11:30 11:45 Temperature Pulse Rate 74 81 71 Pulse Rate [ Bilateral] Pulse Rate [ From Monitor] Respiratory 13 14 10 L Rate Respiratory Rate [Bilateral ] Blood Pressure 108/52 116/55 105/50 O2 Sat by Pulse 90 91 91 Oximetry O2 Sat by Pulse Oximetry [ Assessment] 08/12/18 08/12/18 08/12/18 12:00 12:13 12:15 Temperature 98.4 F Pulse Rate 72 74 74 Pulse Rate [ Bilateral] Pulse Rate [ 74 From Monitor] Respiratory 12 29 H Rate Respiratory Rate [Bilateral ] Blood Pressure 106/53 106/53 115/52 O2 Sat by Pulse 95 92 93 Oximetry O2 Sat by Pulse Oximetry [ Assessment] 08/12/18 08/12/18 08/12/18 12:30 12:38 12:45 Temperature Pulse Rate 76 76 75 Pulse Rate [ Bilateral] Pulse Rate [ From Monitor] Respiratory 30 H 31 H Rate Respiratory Rate [Bilateral ] Blood Pressure 110/54 110/54 116/54 O2 Sat by Pulse 92 91 Oximetry O2 Sat by Pulse Oximetry [ Assessment] 08/12/18 08/12/18 08/12/18 13:00 13:15 13:30 Temperature Pulse Rate 78 80 75 Pulse Rate [ Bilateral] Pulse Rate [ From Monitor] Respiratory 31 H 24 29 H Rate Respiratory Rate [Bilateral ] Blood Pressure 115/54 116/64 107/53 O2 Sat by Pulse 91 90 89 Oximetry O2 Sat by Pulse Oximetry [ Assessment] 08/12/18 08/12/18 08/12/18 13:46 14:09 14:15 Temperature Pulse Rate 80 78 77 Pulse Rate [ Bilateral] Pulse Rate [ From Monitor] Respiratory 29 H 34 H 33 H Rate Respiratory Rate [Bilateral ] Blood Pressure 117/57 121/57 O2 Sat by Pulse 92 92 89 Oximetry O2 Sat by Pulse Oximetry [ Assessment] 08/12/18 08/12/18 08/12/18 14:27 14:30 14:45 Temperature Pulse Rate 77 81 79 Pulse Rate [ Bilateral] Pulse Rate [ From Monitor] Respiratory 26 H 34 H Rate Respiratory Rate [Bilateral ] Blood Pressure 121/57 124/56 116/54 O2 Sat by Pulse 92 93 88 Oximetry O2 Sat by Pulse Oximetry [ Assessment] 08/12/18 15:00 Temperature Pulse Rate 76 Pulse Rate [ Bilateral] Pulse Rate [ From Monitor] Respiratory 33 H Rate Respiratory Rate [Bilateral ] Blood Pressure 119/53 O2 Sat by Pulse 92 Oximetry O2 Sat by Pulse Oximetry [ Assessment] - General physical appearance no distress, no pain, other (awake) - Neck trachea midline, other (trach in place. No drainage. no hematoma/bleeding noted) - Respiratory normal expansion, normal respiratory effort - Abdomen soft, not tender, not distended, other (PEG in place. No drainage. No bleeding) - Labs 08/11/18 Unknown 08/11/18 Unknown
[2018-08-12] MEDS: SUBLIMAZE IV PRN ×2 (20:05→22:45)
[2018-08-12] MEDS: VASELINE LIP THERAPY TP PRN ×2 (20:15→22:46)
[2018-08-12] MEDS: LANTUS SUB-Q SCH (22:21)
[2018-08-13] MEDS: CARDIZEM PO SCH ×6 (00:44→19:23)
[2018-08-13] MEDS: DIPRIVAN 10 MG/ML 1,000 MG/100 ML BOTTLE IV SCH (00:56)
[2018-08-13] MEDS: ELIQUIS PO SCH ×3 (01:18→22:01)
[2018-08-13] MEDS: HumaLOG SUB-Q SCH ×6 (02:17→22:26)
[2018-08-13] MEDS: VASELINE LIP THERAPY TP PRN (04:25)
[2018-08-13 05:53] LABS: Hematocrit 24.5 % (35.5-45.6)
[2018-08-13] MEDS: BROVANA NEBU IH SCH ×2 (08:27→19:39)
[2018-08-13] MEDS: PULMICORT IH SCH ×2 (08:28→19:39)
--- NOTE | 2018-08-13 09:18 | Progress Note ---
Assessment and Plan cont current cardiac meds, awaiting ltac - Patient Problems (1) ARF (acute renal failure) with tubular necrosis Current Visit: Yes Status: Acute (2) Acute respiratory failure Current Visit: Yes Status: Acute Qualifiers: Respiratory failure complication: hypoxia Qualified Code(s): J96.01 - Acute respiratory failure with hypoxia (3) DVT prophylaxis Current Visit: Yes Status: Acute (4) Transient atrial fibrillation Current Visit: Yes Status: Acute (5) COPD (chronic obstructive pulmonary disease) Current Visit: Yes Status: Chronic (6) Hyperlipemia Current Visit: Yes Status: Chronic Qualifiers: Hyperlipidemia type: Mixed hyperlipidemia (7) Hypertension Current Visit: Yes Status: Chronic Qualifiers: Hypertension type: essential hypertension Qualified Code(s): I10 - Essential (primary) hypertension (8) Nonobstructive atherosclerosis of coronary artery Current Visit: Yes Status: Chronic (9) Peripheral vascular disease Current Visit: Yes Status: Chronic Subjective Date of service: 08/13/18 Principal diagnosis: Acute hypoxemic respiratory failure; A-fib with RVR; Possible CHF; H/O DVT Interval history: pt on sedation Objective Vital Signs Temp Pulse Pulse Pulse Resp Resp BP 08/13/18 08:34 78 26 H 08/13/18 08:29 75 28 H 08/13/18 08:00 92 H 76 21 127/53 08/13/18 07:54 08/13/18 07:48 90 30 H 08/13/18 07:46 95 H 15 117/64 08/13/18 07:30 95 H 13 117/64 08/13/18 07:16 89 28 H 127/53 08/13/18 07:00 90 35 H 103/44 08/13/18 06:45 76 14 103/44 08/13/18 06:30 76 27 H 102/46 08/13/18 06:17 74 19 100/49 08/13/18 06:15 74 19 100/49 08/13/18 06:00 99.2 F 74 22 95/46 08/13/18 05:45 73 19 100/44 08/13/18 05:30 74 21 101/42 08/13/18 05:15 74 24 96/44 08/13/18 05:00 75 22 99/45 08/13/18 04:45 76 23 103/42 12/29/18 04:30 89 29 H 123/51 08/13/18 04:24 94 H 125/47 08/13/18 04:16 91 H 21 106/45 08/13/18 04:08 75 103/46 08/13/18 04:00 74 74 18 102/46 08/13/18 03:00 74 25 H 103/48 08/13/18 02:00 76 23 104/52 08/13/18 01:26 30 H 08/13/18 01:00 106 H 36 H 155/62 08/13/18 00:44 107 H 155/62 08/13/18 00:27 99.4 F 08/13/18 00:11 54 L 08/13/18 00:00 100 H 100 H 44 H 116/53 08/12/18 23:00 83 32 H 116/53 08/12/18 22:54 81 08/12/18 22:45 35 H 08/12/18 22:08 84 22 138/77 08/12/18 22:00 84 27 H 138/77 08/12/18 21:51 81 25 H 138/77 08/12/18 21:00 92 H 33 H 121/57 08/12/18 20:35 16 08/12/18 20:31 78 21 08/12/18 20:21 82 85 23 121/57 08/12/18 20:05 85 24 137/63 08/12/18 20:00 99.2 F 86 75 35 H 130/60 08/12/18 19:30 88 21 123/56 08/12/18 19:00 79 19 121/56 08/12/18 18:30 88 28 H 120/58 08/12/18 18:00 79 33 H 130/57 08/12/18 17:45 87 38 H 130/57 08/12/18 17:30 93 H 27 H 110/56 08/12/18 17:15 72 33 H 110/56 08/12/18 17:00 71 31 H 108/54 08/12/18 16:45 82 36 H 122/59 08/12/18 16:43 08/12/18 16:34 83 125/63 08/12/18 16:31 82 125/63 08/12/18 16:30 81 33 H 125/63 08/12/18 16:15 83 35 H 119/60 08/12/18 16:00 101.4 F H 78 84 33 H 117/55 08/12/18 15:45 77 33 H 114/54 08/12/18 15:30 76 32 H 113/54 08/12/18 15:15 78 32 H 123/56 08/12/18 15:00 76 33 H 119/53 08/12/18 14:45 79 34 H 116/54 08/12/18 14:30 81 26 H 124/56 08/12/18 14:27 77 121/57 08/12/18 14:15 77 33 H 121/57 08/12/18 14:09 78 34 H 08/12/18 13:46 80 29 H 117/57 08/12/18 13:30 75 29 H 107/53 08/12/18 13:15 80 24 116/64 08/12/18 13:00 78 31 H 115/54 08/12/18 12:45 75 31 H 116/54 08/12/18 12:38 76 110/54 08/12/18 12:30 76 30 H 110/54 08/12/18 12:15 74 29 H 115/52 08/12/18 12:13 74 106/53 08/12/18 12:00 98.4 F 72 74 12 106/53 08/12/18 11:45 71 10 L 105/50 08/12/18 11:30 81 14 116/55 08/12/18 11:15 74 13 108/52 08/12/18 11:00 73 12 105/50 08/12/18 10:46 80 17 114/49 08/12/18 10:30 86 33 H 112/58 08/12/18 10:16 88 15 106/55 08/12/18 10:00 82 12 102/50 08/12/18 09:45 80 15 99/47 08/12/18 09:30 76 10 L 109/49 08/12/18 09:17 76 111/54 Pulse Ox Pulse Ox 08/13/18 08:34 08/13/18 08:29 08/13/18 08:00 95 08/13/18 07:54 95 08/13/18 07:48 95 08/13/18 07:46 96 08/13/18 07:30 95 08/13/18 07:16 97 08/13/18 07:00 96 08/13/18 06:45 97 08/13/18 06:30 96 08/13/18 06:17 96 08/13/18 06:15 97 08/13/18 06:00 97 08/13/18 05:45 96 08/13/18 05:30 96 08/13/18 05:15 96 08/13/18 05:00 96 08/13/18 04:45 96 08/13/18 04:30 96 08/13/18 04:24 08/13/18 04:16 96 08/13/18 04:08 99 08/13/18 04:00 98 08/13/18 03:00 98 08/13/18 02:00 96 08/13/18 01:26 08/13/18 01:00 97 08/13/18 00:44 08/13/18 00:27 08/13/18 00:11 96 08/13/18 00:00 96 08/12/18 23:00 94 08/12/18 22:54 08/12/18 22:45 08/12/18 22:08 95 08/12/18 22:00 97 08/12/18 21:51 96 08/12/18 21:00 95 08/12/18 20:35 08/12/18 20:31 08/12/18 20:21 95 100 08/12/18 20:05 08/12/18 20:00 96 08/12/18 19:30 95 08/12/18 19:00 94 08/12/18 18:30 96 08/12/18 18:00 96 08/12/18 17:45 08/12/18 17:30 96 08/12/18 17:15 96 08/12/18 17:00 94 08/12/18 16:45 94 08/12/18 16:43 96 08/12/18 16:34 95 08/12/18 16:31 08/12/18 16:30 95 08/12/18 16:15 93 08/12/18 16:00 92 08/12/18 15:45 93 08/12/18 15:30 93 08/12/18 15:15 91 08/12/18 15:00 92 08/12/18 14:45 88 08/12/18 14:30 93 08/12/18 14:27 92 08/12/18 14:15 89 08/12/18 14:09 92 08/12/18 13:46 92 08/12/18 13:30 89 08/12/18 13:15 90 08/12/18 13:00 91 08/12/18 12:45 91 08/12/18 12:38 08/12/18 12:30 92 08/12/18 12:15 93 08/12/18 12:13 92 08/12/18 12:00 95 08/12/18 11:45 91 08/12/18 11:30 91 08/12/18 11:15 90 08/12/18 11:00 90 08/12/18 10:46 88 08/12/18 10:30 91 08/12/18 10:16 87 08/12/18 10:00 92 08/12/18 09:45 93 08/12/18 09:30 91 08/12/18 09:17 96 - Physical Examination General: No Apparent Distress, Other (tracheostomy in place. Patient is alert and appears comfortable) HEENT: Positive: EOMI, Normocephaly, Mucus Membranes Moist Neck: Positive: neck supple, trachea midline. Negative: JVD/HJR Cardiac: Positive: Reg Rate and Rhythm Lungs: Positive: Decreased Breath Sounds Neuro: Positive: Other (trached, sedated) Abdomen: Positive: Soft, Active Bowel Sounds Skin: Positive: Clear. Negative: Rash, Wound Musculoskeletal: No Fluid Collection, Normal Range of Motion Extremities: Present: upper extr. pulses, lower extr. pulses. Absent: edema - Labs and Meds CBC 08/13/18 Range/Units 05:20 Hgb 8.0 L (11.8-15.2) gm/dl Hct 24.5 L (35.5-45.6) % Plt Count 246 (140-440) K/mm3 - Imaging and Cardiology EKG: report reviewed, image reviewed Echo: report reviewed ( 07/27/2018 EF 60-65%, asymmetric septal hypertrophy, mild TR. 05/2017 showed EF 55-60%, grade 1 diastolic dysfunction, mild TR, RVSP 22mmHg. ) REGAN: report reviewed (normal lv function no vegatations) Cardiac cath: report reviewed (12/2015 showed nonobstructive CAD, LAD calcified mid 60%, Diagonal 1 patent with mild LI, circ and OM2 patent, OM1 ostial 60% lesion, RCA mid 30% tortuosity, normal LV function. Treat medically. ) - Telemetry EKG Rhythm: Sinus Rhythm - Allied health notes Allied health notes reviewed: RT
[2018-08-13] MEDS: VITAMIN B-12 PO SCH (09:34)
[2018-08-13] MEDS: CORDARONE PO SCH ×2 (09:35→22:01)
[2018-08-13] MEDS: PRAVACHOL PO SCH (09:35)
[2018-08-13] MEDS: PEPCID PO SCH ×2 (09:36→22:02)
[2018-08-13] MEDS: SODIUM CHLORIDE FLUSH SYRINGE 10 ML IV SCH (10:21)
--- NOTE | 2018-08-13 13:44 | Progress Note ---
Assessment and Plan Assessment and plan: Sepsis. Previous Blood cultures reveal Streptococcus anginosus. New sepsis, fever with leucocytosis: Unclear etiology. UA without infection, CXR unchanged, WBC stable to slightly improving, blood cultures negative thus far. Continue to monitor off abx for now. Acute kidney injury. Etiology secondary to above. Continue to monitor creatinine. Left lower lobe pneumonia. Continue antibiotics and follow chest x-ray. Sputum culture revealed Pseudomonas and MSSA Acute hypoxemic respiratory failure. Etiology secondary to above. Continue on mechanical ventilation and weaning per pulmonary. Follow-up serial chest x-ray and ABGs. Pt is scheduled for tracheostomy and PEG tube placement this am Atrial fibrillation. Continue amiodarone and diltiazem. Cardiology following. REGAN negative Acute renal failure. Etiology likely secondary to sepsis/ATN. Renal ultrasound unremarkable. COPD exacerbation. Continue bronchodilators/nebulizers. IV steroids. Hypertension. Resume antihypertensive medications as needed. Hyperlipidemia. Peripheral vascular disease. The high probability of a clinically significant, sudden or life threatening deterioration of the [respiratory] system(s) required my full and direct attention, intervention and personal management. The aggregate critical care time was [33] minutes. This time is in addition to time spent performing reported procedures but includes the following: [x] Data Review and interpretation [x] Patient assessment and monitoring of vital signs [x] Documentation [x] Medication orders and management History Interval history: 73 YO Male with H/O COPD, PVD, HTN, HLD, Seizure Disorder, Skin Cancer presents to ED for evaluation. Pt states that he has experienced shortness and chest pa lpitations over the past 2 days with worsening symptoms over the past 1 day. Pt acknowledges decreased exercise tolerance, as well as dyspnea on exertion. Pt was seen and evaluated by his senior revenue accountant today and was sent to [facility] ED for further care and evaluation. Pt denies fever, chills, leg swelling, calf pain, CP with deep breathing, hemoptysis, Prolonged air/car travel, or immobility, Back Pain, Syncope, Lightheadedness, recent ill contacts, unintentional weight loss, night sweats, or bone pain. Pt seen and evaluated in ED and found to have Atrial Fib with RVR refractory to cardizem drip, but improved with Amiodarone Drip, Acute Hypoxemic Respiratory Failure, SIRS. Pt admitted to ICU. The patient later after admission had further decompensation with respiratory distress. Patient reportedly was satting 60-70% on a nonrebreather and had to be emergently intubated. The patient remains intubated on mechanical ventilation Hospitalist Physical - Constitutional Vitals: Temp Pulse Resp BP Pulse Ox 97.6 F 63 21 104/47 97 08/13/18 12:00 08/13/18 12:00 08/13/18 12:00 08/13/18 12:00 08/13/18 12:00 General appearance: Present: other (intubated on mechanical ventilation) - EENT Eyes: Present: PERRL, EOM intact ENT: hearing intact, clear oral mucosa, dentition normal - Neck Neck: Present: supple, normal ROM - Respiratory Respiratory effort: normal Respiratory: bilateral: CTA - Cardiovascular Rhythm: regular Heart Sounds: Present: S1 & S2. Absent: gallop, rub - Extremities Extremities: no ischemia, No edema, Full ROM - Abdominal General gastrointestinal: soft, non-tender, non-distended, normal bowel sounds - Integumentary Integumentary: Present: clear, warm, dry - Neurologic Neurologic: CNII-XII intact, moves all extremities Results - Labs CBC & Chem 7: 08/13/18 05:20 08/11/18 Unknown Labs: Laboratory Last Values WBC 12.1 K/mm3 (4.5-11.0) H 08/11/18 Unknown RBC 2.50 M/mm3 (3.65-5.03) L 08/11/18 Unknown Hgb 8.0 gm/dl (11.8-15.2) L 08/13/18 05:20 Hct 24.5 % (35.5-45.6) L 08/13/18 05:20 MCV 103 fl (84-94) H 08/11/18 Unknown MCH 33 pg (28-32) H 08/11/18 Unknown MCHC 32 % (32-34) 08/11/18 Unknown RDW 17.0 % (13.2-15.2) H 08/11/18 Unknown Plt Count 246 K/mm3 (140-440) 08/13/18 05:20 Lymph % (Auto) 5.1 % (13.4-35.0) L 08/11/18 Unknown [place] % (Auto) 9.5 % (0.0-7.3) H 08/11/18 Unknown Eos % (Auto) 0.3 % (0.0-4.3) 08/11/18 Unknown Baso % (Auto) 0.3 % (0.0-1.8) 08/11/18 Unknown Lymph # 0.6 K/mm3 (1.2-5.4) L 08/11/18 Unknown [place] # 1.2 K/mm3 (0.0-0.8) H 08/11/18 Unknown Eos # 0.0 K/mm3 (0.0-0.4) 08/11/18 Unknown Baso # 0.0 K/mm3 (0.0-0.1) 08/11/18 Unknown Add Manual Diff Complete 08/08/18 02:09 Total Counted 100 08/08/18 02:09 Seg Neutrophils % 84.8 % (40.0-70.0) H 08/11/18 Unknown Seg Neuts % (Manual) 73.0 % (40.0-70.0) H 08/08/18 02:09 Band Neutrophils % 5.0 % 08/08/18 02:09 Lymphocytes % (Manual) 9.0 % (13.4-35.0) L 08/08/18 02:09 Reactive Lymphs % (Man) 0 % 08/08/18 02:09 Monocytes % (Manual) 10.0 % (0.0-7.3) H 08/08/18 02:09 Eosinophils % (Manual) 0 % (0.0-4.3) 08/08/18 02:09 Basophils % (Manual) 0 % (0.0-1.8) 08/08/18 02:09 Metamyelocytes % 3.0 % 08/08/18 02:09 Myelocytes % 0 % 08/08/18 02:09 Promyelocytes % 0 % 08/08/18 02:09 Blast Cells % 0 % 08/08/18 02:09 Nucleated RBC % Not Reportable 08/08/18 02:09 Seg Neutrophils # 10.3 K/mm3 (1.8-7.7) H 08/11/18 Unknown Seg Neutrophils # Man 10.7 K/mm3 (1.8-7.7) H 08/08/18 02:09 Band Neutrophils # 0.7 K/mm3 08/08/18 02:09 Lymphocytes # (Manual) 1.3 K/mm3 (1.2-5.4) 08/08/18 02:09 Abs React Lymphs (Man) 0.0 K/mm3 08/08/18 02:09 Monocytes # (Manual) 1.5 K/mm3 (0.0-0.8) H 08/08/18 02:09 Eosinophils # (Manual) 0.0 K/mm3 (0.0-0.4) 08/08/18 02:09 Basophils # (Manual) 0.0 K/mm3 (0.0-0.1) 08/08/18 02:09 Metamyelocytes # 0.4 K/mm3 08/08/18 02:09 Myelocytes # 0.0 K/mm3 08/08/18 02:09 Promyelocytes # 0.0 K/mm3 08/08/18 02:09 Blast Cells # 0.0 K/mm3 08/08/18 02:09 Pathologist Review 07/28/18 06:01 WBC Morphology Not Reportable 08/08/18 02:09 Hypersegmented Neuts Not Reportable 08/08/18 02:09 Hyposegmented Neuts Not Reportable 08/08/18 02:09 Hypogranular Neuts Not Reportable 08/08/18 02:09 Smudge Cells Not Reportable 08/08/18 02:09 Toxic Granulation Not Reportable 08/08/18 02:09 Toxic Vacuolation Not Reportable 08/08/18 02:09 Dohle Bodies Not Reportable 08/08/18 02:09 Pelger-Huet Anomaly Not Reportable 08/08/18 02:09 Janiya Rods Not Reportable 08/08/18 02:09 Platelet Estimate Appears normal 08/08/18 02:09 Clumped Platelets Not Reportable 08/08/18 02:09 Plt Clumps, EDTA Not Reportable 08/08/18 02:09 Large Platelets Not Reportable 08/08/18 02:09 Giant Platelets Not Reportable 08/08/18 02:09 Platelet Satelliting Not Reportable 08/08/18 02:09 Plt Morphology Comment Not Reportable 08/08/18 02:09 RBC Morphology Not Reportable 08/08/18 02:09 Dimorphic RBCs Not Reportable 08/08/18 02:09 Polychromasia Not Reportable 08/08/18 02:09 Hypochromasia Few 08/08/18 02:09 Poikilocytosis Not Reportable 08/08/18 02:09 Anisocytosis 1+ 08/08/18 02:09 Microcytosis Not Reportable 08/08/18 02:09 Macrocytosis Not Reportable 08/08/18 02:09 Spherocytes Not Reportable 08/08/18 02:09 Pappenheimer Bodies Not Reportable 08/08/18 02:09 Sickle Cells Not Reportable 08/08/18 02:09 Target Cells Not Reportable 08/08/18 02:09 Tear Drop Cells Not Reportable 08/08/18 02:09 Ovalocytes Not Reportable 08/08/18 02:09 Stomatocytes Few 08/08/18 02:09 Helmet Cells Not Reportable 08/08/18 02:09 Lr-[place] Bodies Not Reportable 08/08/18 02:09 [place] Rings Not Reportable 08/08/18 02:09 [place] Cells Not Reportable 08/08/18 02:09 Bite Cells Not Reportable 08/08/18 02:09 Crenated Cell Not Reportable 08/08/18 02:09 Elliptocytes Not Reportable 08/08/18 02:09 Acanthocytes (Spur) Not Reportable 08/08/18 02:09 Rouleaux Not Reportable 08/08/18 02:09 Hemoglobin C Crystals Not Reportable 08/08/18 02:09 Schistocytes Not Reportable 08/08/18 02:09 Malaria parasites Not Reportable 08/08/18 02:09 Jigar Bodies Not Reportable 08/08/18 02:09 Hem Pathologist Commnt No 08/08/18 02:09 PT 13.4 Sec. (12.2-14.9) 08/07/18 15:08 INR 0.98 (0.87-1.13) 08/07/18 15:08 APTT 23.2 Sec. (24.2-36.6) L 08/07/18 15:08 D-Dimer 798.17 ng/mlDDU (0-234) H 07/27/18 15:52 Heparin Anti-Xa Level 1.18 U.I./ml (0.3-0.7) H 08/12/18 14:56 POC ABG pH 7.453 (7.35-7.45) H 08/13/18 09:28 POC ABG pCO2 47.5 (35-45) H 08/13/18 09:28 POC ABG pO2 84 (80-105) 08/13/18 09:28 POC ABG HCO3 33.3 08/13/18 09:28 POC ABG Total CO2 35 08/13/18 09:28 POC ABG O2 Sat 97 08/13/18 09:28 POC ABG Base Excess 9 08/13/18 09:28 FiO2 45 % 08/13/18 09:28 Sodium 136 mmol/L (137-145) L 08/11/18 Unknown Potassium 4.1 mmol/L (3.6-5.0) 08/11/18 Unknown Chloride 96.5 mmol/L (98-107) L 08/11/18 Unknown Carbon Dioxide 32 mmol/L (22-30) H D 08/11/18 Unknown Anion Gap 12 mmol/L 08/11/18 Unknown BUN 16 mg/dL (9-20) 08/11/18 Unknown Creatinine 0.5 mg/dL (0.8-1.5) L 08/11/18 Unknown Estimated GFR > 60 ml/min 08/11/18 Unknown BUN/Creatinine Ratio 32 % 08/11/18 Unknown Glucose 186 mg/dL (75-100) H 08/11/18 Unknown POC Glucose 177 (70-105) H 08/13/18 10:07 Lactic Acid 1.30 mmol/L (0.7-2.0) 08/03/18 16:48 Calcium 8.4 mg/dL (8.4-10.2) 08/11/18 Unknown Phosphorus 2.80 mg/dL (2.5-4.5) 08/06/18 05:17 Magnesium 2.30 mg/dL (1.7-2.3) 08/06/18 05:17 Total Bilirubin 1.30 mg/dL (0.1-1.2) H 07/27/18 12:59 AST 15 units/L (5-40) 07/27/18 12:59 ALT 16 units/L (7-56) 07/27/18 12:59 Alkaline Phosphatase 62 units/L (35-129) 07/27/18 12:59 Troponin T < 0.010 ng/mL (0.00-0.029) 07/27/18 12:59 C-Reactive Protein 2.30 mg/dL (0.00-1.30) H 08/03/18 16:48 NT-Pro-B Natriuret Pep 3913 pg/mL (0-900) H 07/27/18 12:59 Total Protein 6.2 g/dL (6.3-8.2) L 07/27/18 12:59 Albumin 3.6 g/dL (3.9-5) L 07/27/18 12:59 Albumin/Globulin Ratio 1.4 % 07/27/18 12:59 Triglycerides 64 mg/dL (2-149) 08/08/18 14:02 TSH 1.180 mlU/mL (0.270-4.200) 07/27/18 15:52 Free T4 1.28 ng/dL (0.76-1.46) 07/27/18 15:52 Urine Color Yellow (Yellow) 08/11/18 12:50 Urine Turbidity Clear (Clear) 08/11/18 12:50 Urine pH 6.0 (5.0-7.0) 08/11/18 12:50 Ur Specific [place] 1.015 (1.003-1.030) 08/11/18 12:50 Urine Protein <15 mg/dl mg/dL (Negative) 08/11/18 12:50 Urine Glucose (UA) 50 mg/dL (Negative) 08/11/18 12:50 Urine Ketones Neg mg/dL (Negative) 08/11/18 12:50 Urine Blood Neg (Negative) 08/11/18 12:50 Urine Nitrite Neg (Negative) 08/11/18 12:50 Urine Bilirubin Neg (Negative) 08/11/18 12:50 Urine Urobilinogen 4.0 mg/dL (<2.0) 08/11/18 12:50 Ur Leukocyte Esterase Neg (Negative) 08/11/18 12:50 Urine WBC (Auto) 2.0 /HPF (0.0-6.0) 08/11/18 12:50 Urine RBC (Auto) 2.0 /HPF (0.0-6.0) 08/11/18 12:50 U Epithel Cells (Auto) 2.0 /HPF (0-13.0) 07/29/18 09:24 Urine Bacteria (Auto) 1+ /HPF (Negative) 08/11/18 12:50 Urine Mucus Few /HPF 08/11/18 12:50 Urine Yeast (Budding) 1+ /HPF 07/29/18 09:24 Urine Creatinine 72.3 mg/dL (0.1-20.0) H 07/29/18 09:24 Urine Sodium 12 mmol/L 07/29/18 09:24 Random Vancomycin 9.2 ug/mL (0-40.0) 07/29/18 04:21 Nutrition/Malnutrition Assess - Dietary Evaluation Nutrition/Malnutrition Findings: Nutrition Notes Start: 07/28/18 10:54 Freq: Status: Active Protocol: Document 08/10/18 15:05 OL (Rec: 08/10/18 15:09 OL [id number]) Nutrition Notes Initial or Follow up Reassessment Current Diagnoses Acute Kidney Injury COPD Sepsis Hypertension Heart Failure Respiratory Failure Other Pertinent Diagnosis Hx of Skin Cancer Current Diet Nepro at 50ml/hr Labs/Tests BUN 26 Cr 0.5 Medications propofol at 5.062mL/hr (113.64 lipid kcal ) Height 5 ft 8 in Weight 84.1 kg [place] Body Weight (lbs) 154.0 BMI 28.1 Subjective/Other Information Nepro on hold at time of visit 2/2 pt. having PEG placed. TF to restart later this afternoon. Per RN, pt. had been tolerating TF well at goal rate prior to PEG placement. Burn Absent Trauma Absent #1 Nutrition Diagnoses Inadequate oral intake Diagnosis Progress(for reassessment Continues documentation) Is patient on ventilator? Yes Is Patient Ambulatory and/or Out of Bed No REE-([facility]-confined to bed) 0197.738 Calculation Used for Recommendations [facility] Additional Notes protein (1.2-2g/kg): 101-168g fluid: 1mL/kcal Nutrition Intervention Change Diet Order: Continue TF Nutrition Support: Nepro at 50mL/hr 250 mL free water flush q4h or per MD. Kcal 2,160 Protein (gm) 97 Fluid (mL) 872 Goal #1 TF tolerance and rate Goal #2 Meet at least 80% of kcal needs and 80-100% of protein needs. Follow-Up By: 08/16/18 Additional Comments Peg and Trach done. Patient remain in stable condition
[2018-08-13] MEDS: SUBLIMAZE IV PRN ×2 (14:00→18:15)
[2018-08-13] MEDS ORDERED: HALDOL IV PRN (17:55)
--- NOTE | 2018-08-13 17:55 | Progress Note ---
Assessment and Plan Acute hypoxemic respiratory failure, on mechanical ventilatory support. Atrial fibrillation with rapid ventricular response. Possible congestive heart failure with an acute exacerbation. 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 Elevated D-dimer. Leukocytosis. Sepsis syndrome with hypotension and fevers this morning. Chronic obstructive lung disease with an acute exacerbation. Hypernatremia Peripheral vascular disease. Mixed acidosis, respiratory and metabolic. Acute kidney injury. Lactic acidosis. Elevated BNP level of 3913. History of hypertension. History of arthritis. (Discussed possible need for tracheostomy with caregiver in room who stated that she will talk to his sister as no or kids) - continue daily SBT's as tolerated (should do better post trach) - continue seroquel at current dose - repeat CBC acceptable and no need for transfusion - reduced free water flushes (started for hypernatremia) - continue Lantus insulin with SSI for glycemic control - tapered off solumedrol - VAP bundle addressed - titrate sedatives for RASS 0 to -1 - PT/OT evaluation ongoing (unable to treat today also) - continue enteral nutrition as tolerated - continue supplemental oxygen to keep sats >/= 90% - aspiration precautions - continue bronchodilators with pulmonary hygiene per RT - continue therapeutic anticoagulation - continue stress ulcer prophylaxis - continue Antibiotics to complete course - continue mobility protocol for pressure ulcer prevention - continue pother care per attending / other consultants .... re-evaluate in am & prn ... care plan discussed with patient and caregiver in room FULL CODE STATUS CONDITION: CRITICAL The high probability of a clinically significant, sudden or life-threatening deterioration of the [respiratory, cardiovascular, renal] system(s) required my full and direct attention, intervention and personal management. The aggregate critical care time was [32] minutes without overlap. Time includes spent on; [x] Data Review and interpretation [x] Patient assessment and monitoring of vital signs [x] Documentation [x] Medication orders and management Subjective Date of service: 08/13/18 Principal diagnosis: Acute hypoxemic respiratory failure; A-fib with RVR; Possible CHF; H/O DVT Interval history: Patient is seen today for: Acute hypoxemic respiratory failure on MVS; Atrial fibrillation with RVR; Possible congestive heart failure with an acute e xacerbation; History of deep venous thrombosis; Elevated D-dimer. Seen and examined at bedside; 24hour events reviewed; nursing and respiratory care staff consulted; no adverse overnight events reported to me; remains on MVS; still a tenuous wean; less agitated; No N/V/F/C Objective Vital Signs - 12hr 08/13/18 08/13/18 08/13/18 06:00 06:15 06:17 Temperature 99.2 F Pulse Rate 74 74 74 Pulse Rate [ Bilateral] Pulse Rate [ From Monitor] Respiratory 22 19 19 Rate Respiratory Rate [Bilateral ] Blood Pressure 95/46 100/49 100/49 O2 Sat by Pulse 97 97 96 Oximetry O2 Sat by Pulse Oximetry [ Assessment] 08/13/18 08/13/18 08/13/18 06:30 06:45 07:00 Temperature Pulse Rate 76 76 90 Pulse Rate [ Bilateral] Pulse Rate [ From Monitor] Respiratory 27 H 14 35 H Rate Respiratory Rate [Bilateral ] Blood Pressure 102/46 103/44 103/44 O2 Sat by Pulse 96 97 96 Oximetry O2 Sat by Pulse Oximetry [ Assessment] 08/13/18 08/13/18 08/13/18 07:16 07:30 07:46 Temperature Pulse Rate 89 95 H 95 H Pulse Rate [ Bilateral] Pulse Rate [ From Monitor] Respiratory 28 H 13 15 Rate Respiratory Rate [Bilateral ] Blood Pressure 127/53 117/64 117/64 O2 Sat by Pulse 97 95 96 Oximetry O2 Sat by Pulse Oximetry [ Assessment] 08/13/18 08/13/18 08/13/18 07:48 07:54 08:00 Temperature 97.6 F Pulse Rate 90 92 H Pulse Rate [ Bilateral] Pulse Rate [ 76 From Monitor] Respiratory 30 H 21 Rate Respiratory Rate [Bilateral ] Blood Pressure 127/53 O2 Sat by Pulse 95 95 Oximetry O2 Sat by Pulse 95 Oximetry [ Assessment] 08/13/18 08/13/18 08/13/18 08:16 08:29 08:30 Temperature Pulse Rate 77 75 Pulse Rate [ 75 Bilateral] Pulse Rate [ From Monitor] Respiratory 17 23 Rate Respiratory 28 H Rate [Bilateral ] Blood Pressure 112/54 112/54 O2 Sat by Pulse 94 98 Oximetry O2 Sat by Pulse Oximetry [ Assessment] 08/13/18 08/13/18 08/13/18 08:34 08:46 09:00 Temperature Pulse Rate 74 75 Pulse Rate [ 78 Bilateral] Pulse Rate [ From Monitor] Respiratory 18 31 H Rate Respiratory 26 H Rate [Bilateral ] Blood Pressure 112/54 112/54 O2 Sat by Pulse 97 96 Oximetry O2 Sat by Pulse Oximetry [ Assessment] 08/13/18 08/13/18 08/13/18 09:16 09:30 09:35 Temperature Pulse Rate 73 72 70 Pulse Rate [ Bilateral] Pulse Rate [ From Monitor] Respiratory 22 13 Rate Respiratory Rate [Bilateral ] Blood Pressure 102/46 102/46 102/46 O2 Sat by Pulse 97 96 Oximetry O2 Sat by Pulse Oximetry [ Assessment] 08/13/18 08/13/18 08/13/18 09:46 10:00 10:16 Temperature Pulse Rate 69 69 66 Pulse Rate [ Bilateral] Pulse Rate [ From Monitor] Respiratory 19 14 32 H Rate Respiratory Rate [Bilateral ] Blood Pressure 102/46 102/46 91/44 O2 Sat by Pulse 97 96 96 Oximetry O2 Sat by Pulse Oximetry [ Assessment] 08/13/18 08/13/18 08/13/18 10:30 10:46 11:00 Temperature Pulse Rate 79 68 77 Pulse Rate [ Bilateral] Pulse Rate [ From Monitor] Respiratory 29 H 32 H 32 H Rate Respiratory Rate [Bilateral ] Blood Pressure 91/44 91/44 102/49 O2 Sat by Pulse 93 93 95 Oximetry O2 Sat by Pulse Oximetry [ Assessment] 08/13/18 08/13/18 08/13/18 11:15 11:16 11:30 Temperature Pulse Rate 84 82 77 Pulse Rate [ Bilateral] Pulse Rate [ From Monitor] Respiratory 25 H 32 H 32 H Rate Respiratory Rate [Bilateral ] Blood Pressure 102/49 102/49 O2 Sat by Pulse 95 95 94 Oximetry O2 Sat by Pulse Oximetry [ Assessment] 08/13/18 08/13/18 08/13/18 11:46 11:59 12:00 Temperature 97.6 F Pulse Rate 67 67 66 Pulse Rate [ Bilateral] Pulse Rate [ 63 From Monitor] Respiratory 26 H 27 H Rate Respiratory Rate [Bilateral ] Blood Pressure 102/49 102/49 104/47 O2 Sat by Pulse 96 96 Oximetry O2 Sat by Pulse Oximetry [ Assessment] 08/13/18 08/13/18 08/13/18 12:16 12:30 12:46 Temperature Pulse Rate 65 66 63 Pulse Rate [ Bilateral] Pulse Rate [ From Monitor] Respiratory 20 31 H 32 H Rate Respiratory Rate [Bilateral ] Blood Pressure 104/47 104/47 104/47 O2 Sat by Pulse 96 96 96 Oximetry O2 Sat by Pulse Oximetry [ Assessment] 08/13/18 08/13/18 08/13/18 13:00 13:16 13:30 Temperature Pulse Rate 100 H 92 H 86 Pulse Rate [ Bilateral] Pulse Rate [ From Monitor] Respiratory 22 17 28 H Rate Respiratory Rate [Bilateral ] Blood Pressure 104/47 104/47 104/47 O2 Sat by Pulse 87 88 92 Oximetry O2 Sat by Pulse Oximetry [ Assessment] 08/13/18 08/13/18 08/13/18 13:46 14:00 14:16 Temperature Pulse Rate 79 76 69 Pulse Rate [ Bilateral] Pulse Rate [ From Monitor] Respiratory 28 H 25 H 25 H Rate Respiratory Rate [Bilateral ] Blood Pressure 104/47 113/48 113/48 O2 Sat by Pulse 95 94 96 Oximetry O2 Sat by Pulse Oximetry [ Assessment] 08/13/18 08/13/18 08/13/18 14:30 14:46 15:00 Temperature Pulse Rate 68 67 66 Pulse Rate [ Bilateral] Pulse Rate [ From Monitor] Respiratory 25 H 26 H 24 Rate Respiratory Rate [Bilateral ] Blood Pressure 113/48 113/48 113/48 O2 Sat by Pulse 96 97 98 Oximetry O2 Sat by Pulse Oximetry [ Assessment] 08/13/18 08/13/18 08/13/18 15:15 15:16 15:30 Temperature Pulse Rate 64 65 Pulse Rate [ Bilateral] Pulse Rate [ From Monitor] Respiratory 23 23 Rate Respiratory Rate [Bilateral ] Blood Pressure 112/49 112/49 O2 Sat by Pulse 98 98 Oximetry O2 Sat by Pulse 95 Oximetry [ Assessment] 08/13/18 08/13/18 08/13/18 15:46 16:00 16:16 Temperature 98.3 F Pulse Rate 66 65 66 Pulse Rate [ Bilateral] Pulse Rate [ 80 From Monitor] Respiratory 27 H 23 22 Rate Respiratory Rate [Bilateral ] Blood Pressure 112/49 112/49 110/48 O2 Sat by Pulse 95 96 98 Oximetry O2 Sat by Pulse Oximetry [ Assessment] 08/13/18 08/13/18 08/13/18 16:30 16:46 17:00 Temperature Pulse Rate 65 71 67 Pulse Rate [ Bilateral] Pulse Rate [ From Monitor] Respiratory 26 H 25 H 28 H Rate Respiratory Rate [Bilateral ] Blood Pressure 110/48 110/48 108/49 O2 Sat by Pulse 96 97 95 Oximetry O2 Sat by Pulse Oximetry [ Assessment] Constitutional: appears uncomfortable, other (elderly looking CM, normocephalic and atraumatic with normal respiratory effort) Eyes: non-icteric ENT: oropharynx moist, other (ETT 23 cm SUHAS) Neck: supple, no lymphadenopathy, no JVD, other (No thyromegaly) Effort: mildly labored Ascultation: Bilateral: diminished breath sounds, rhonchi Percussion: Bilateral: not dull Cardiovascular: irregular rhythm, other (+ systolic murmur) Gastrointestinal: hypoactive bowel sounds, soft, non-tender, non-distended, other (No palpable HSM) Integumentary: rash, other (upper extremity edema) Extremities: no cyanosis, pink and warm, pulses normal, no ischemia or petechiae Neurologic: non-focal exam (grossly), pupils equal and round, other (moves all extemities) Psychiatric: mood appropriate, affect normal CBC and BMP: 08/15/18 11:45 08/14/18 05:22 ABG, PT/INR, D-dimer: ABG POC ABG pH 7.453 (7.35-7.45) H 08/13/18 09:28 POC ABG pCO2 47.5 (35-45) H 08/13/18 09:28 POC ABG pO2 84 (80-105) 08/13/18 09:28 POC ABG HCO3 33.3 08/13/18 09:28 POC ABG Total CO2 35 08/13/18 09:28 POC ABG O2 Sat 97 08/13/18 09:28 PT/INR, D-dimer PT 13.4 Sec. (12.2-14.9) 08/07/18 15:08 INR 0.98 (0.87-1.13) 08/07/18 15:08 D-Dimer 798.17 ng/mlDDU (0-234) H 07/27/18 15:52 Abnormal lab findings: Abnormal Labs 07/27/18 07/27/18 07/27/18 12:59 12:59 12:59 WBC 15.8 H RBC Hgb Hct MCV 104 H MCH 34 H MCHC RDW 16.3 H Lymph % (Auto) [place] % (Auto) Lymph # [place] # Seg Neutrophils % Seg Neuts % (Manual) 88.0 H Lymphocytes % (Manual) 3.0 L Monocytes % (Manual) Nucleated RBC % Seg Neutrophils # Seg Neutrophils # Man 13.9 H Lymphocytes # (Manual) 0.5 L Monocytes # (Manual) PT 17.0 H INR 1.34 H APTT D-Dimer Heparin Anti-Xa Level POC ABG pH POC ABG pCO2 POC ABG pO2 Sodium Potassium Chloride Carbon Dioxide 21 L BUN 38 H Creatinine 1.6 H Glucose POC Glucose Lactic Acid Calcium Phosphorus Total Bilirubin 1.30 H C-Reactive Protein NT-Pro-B Natriuret Pep 3913 H Total Protein 6.2 L Albumin 3.6 L Urine WBC (Auto) Urine Creatinine 07/27/18 07/27/18 07/27/18 15:52 16:12 17:09 WBC RBC Hgb Hct MCV MCH MCHC RDW Lymph % (Auto) [place] % (Auto) Lymph # [place] # Seg Neutrophils % Seg Neuts % (Manual) Lymphocytes % (Manual) Monocytes % (Manual) Nucleated RBC % Seg Neutrophils # Seg Neutrophils # Man Lymphocytes # (Manual) Monocytes # (Manual) PT 16.0 H INR 1.24 H APTT D-Dimer 798.17 H Heparin Anti-Xa Level POC ABG pH POC ABG pCO2 POC ABG pO2 Sodium Potassium Chloride Carbon Dioxide BUN Creatinine Glucose POC Glucose Lactic Acid 5.00 H* Calcium Phosphorus Total Bilirubin C-Reactive Protein NT-Pro-B Natriuret Pep Total Protein Albumin Urine WBC (Auto) Urine Creatinine 07/27/18 07/27/18 07/27/18 17:59 18:07 21:31 WBC RBC Hgb Hct MCV MCH MCHC RDW Lymph % (Auto) [place] % (Auto) Lymph # [place] # Seg Neutrophils % Seg Neuts % (Manual) Lymphocytes % (Manual) Monocytes % (Manual) Nucleated RBC % Seg Neutrophils # Seg Neutrophils # Man Lymphocytes # (Manual) Monocytes # (Manual) PT INR APTT D-Dimer Heparin Anti-Xa Level POC ABG pH 7.344 L POC ABG pCO2 POC ABG pO2 36 L Sodium Potassium Chloride Carbon Dioxide BUN Creatinine Glucose POC Glucose Lactic Acid 5.20 H* 5.00 H* Calcium Phosphorus Total Bilirubin C-Reactive Protein NT-Pro-B Natriuret Pep Total Protein Albumin Urine WBC (Auto) Urine Creatinine 07/27/18 07/27/18 07/27/18 21:57 22:42 23:26 WBC RBC Hgb Hct MCV MCH MCHC RDW Lymph % (Auto) [place] % (Auto) Lymph # [place] # Seg Neutrophils % Seg Neuts % (Manual) Lymphocytes % (Manual) Monocytes % (Manual) Nucleated RBC % Seg Neutrophils # Seg Neutrophils # Man Lymphocytes # (Manual) Monocytes # (Manual) PT INR APTT D-Dimer Heparin Anti-Xa Level POC ABG pH 7.199 L POC ABG pCO2 62.0 H POC ABG pO2 Sodium Potassium Chloride Carbon Dioxide BUN Creatinine Glucose POC Glucose Lactic Acid 4.70 H* 5.00 H* Calcium Phosphorus Total Bilirubin C-Reactive Protein NT-Pro-B Natriuret Pep Total Protein Albumin Urine WBC (Auto) Urine Creatinine 07/28/18 07/28/18 07/28/18 00:45 05:40 05:58 WBC RBC Hgb Hct MCV MCH MCHC RDW Lymph % (Auto) [place] % (Auto) Lymph # [place] # Seg Neutrophils % Seg Neuts % (Manual) Lymphocytes % (Manual) Monocytes % (Manual) Nucleated RBC % Seg Neutrophils # Seg Neutrophils # Man Lymphocytes # (Manual) Monocytes # (Manual) PT INR APTT D-Dimer Heparin Anti-Xa Level 0.11 L POC ABG pH 7.186 L POC ABG pCO2 60.1 H POC ABG pO2 68 L Sodium Potassium Chloride Carbon Dioxide BUN Creatinine Glucose POC Glucose Lactic Acid 4.70 H* Calcium Phosphorus Total Bilirubin C-Reactive Protein NT-Pro-B Natriuret Pep Total Protein Albumin Urine WBC (Auto) Urine Creatinine 07/28/18 07/28/18 07/28/18 06:01 06:01 07:19 WBC 12.5 H RBC 3.51 L Hgb 11.5 L Hct MCV 104 H MCH 33 H MCHC RDW 16.6 H Lymph % (Auto) [place] % (Auto) Lymph # [place] # Seg Neutrophils % Seg Neuts % (Manual) Lymphocytes % (Manual) Monocytes % (Manual) Nucleated RBC % Seg Neutrophils # Seg Neutrophils # Man Lymphocytes # (Manual) Monocytes # (Manual) PT INR APTT D-Dimer Heparin Anti-Xa Level 0.14 L POC ABG pH POC ABG pCO2 POC ABG pO2 Sodium 135 L Potassium 5.1 H Chloride 95.0 L Carbon Dioxide 21 L BUN 54 H Creatinine 2.6 H D Glucose POC Glucose Lactic Acid Calcium Phosphorus Total Bilirubin C-Reactive Protein NT-Pro-B Natriuret Pep Total Protein Albumin Urine WBC (Auto) Urine Creatinine 07/28/18 07/28/18 07/28/18 07:19 09:20 11:06 WBC RBC Hgb Hct MCV MCH MCHC RDW Lymph % (Auto) [place] % (Auto) Lymph # [place] # Seg Neutrophils % Seg Neuts % (Manual) Lymphocytes % (Manual) Monocytes % (Manual) Nucleated RBC % Seg Neutrophils # Seg Neutrophils # Man Lymphocytes # (Manual) Monocytes # (Manual) PT INR APTT D-Dimer Heparin Anti-Xa Level POC ABG pH 7.266 L POC ABG pCO2 49.7 H POC ABG pO2 74 L Sodium Potassium Chloride Carbon Dioxide BUN Creatinine Glucose POC Glucose Lactic Acid 4.00 H* 3.90 H* Calcium Phosphorus Total Bilirubin C-Reactive Protein NT-Pro-B Natriuret Pep Total Protein Albumin Urine WBC (Auto) Urine Creatinine 07/28/18 07/28/18 07/28/18 15:06 20:45 23:36 WBC RBC Hgb Hct MCV MCH MCHC RDW Lymph % (Auto) [place] % (Auto) Lymph # [place] # Seg Neutrophils % Seg Neuts % (Manual) Lymphocytes % (Manual) Monocytes % (Manual) Nucleated RBC % Seg Neutrophils # Seg Neutrophils # Man Lymphocytes # (Manual) Monocytes # (Manual) PT INR APTT D-Dimer Heparin Anti-Xa Level 0.15 L POC ABG pH POC ABG pCO2 POC ABG pO2 Sodium 134 L Potassium 5.2 H Chloride Carbon Dioxide BUN 58 H Creatinine 2.1 H Glucose 110 H POC Glucose 125 H Lactic Acid Calcium Phosphorus Total Bilirubin C-Reactive Protein NT-Pro-B Natriuret Pep Total Protein Albumin Urine WBC (Auto) Urine Creatinine 07/29/18 07/29/18 07/29/18 01:12 04:21 04:21 WBC RBC 3.21 L Hgb 10.8 L Hct 33.0 L MCV 103 H MCH 34 H MCHC RDW 16.4 H Lymph % (Auto) [place] % (Auto) Lymph # [place] # Seg Neutrophils % Seg Neuts % (Manual) Lymphocytes % (Manual) 11.0 L Monocytes % (Manual) Nucleated RBC % Seg Neutrophils # Seg Neutrophils # Man Lymphocytes # (Manual) 1.0 L Monocytes # (Manual) PT INR APTT D-Dimer Heparin Anti-Xa Level 0.21 L POC ABG pH POC ABG pCO2 POC ABG pO2 Sodium Potassium Chloride Carbon Dioxide BUN 48 H Creatinine 1.6 H Glucose 166 H POC Glucose Lactic Acid Calcium Phosphorus Total Bilirubin C-Reactive Protein NT-Pro-B Natriuret Pep Total Protein Albumin Urine WBC (Auto) Urine Creatinine 07/29/18 07/29/18 07/29/18 05:19 08:16 09:24 WBC RBC Hgb Hct MCV MCH MCHC RDW Lymph % (Auto) [place] % (Auto) Lymph # [place] # Seg Neutrophils % Seg Neuts % (Manual) Lymphocytes % (Manual) Monocytes % (Manual) Nucleated RBC % Seg Neutrophils # Seg Neutrophils # Man Lymphocytes # (Manual) Monocytes # (Manual) PT INR APTT D-Dimer Heparin Anti-Xa Level 0.25 L POC ABG pH POC ABG pCO2 POC ABG pO2 Sodium Potassium Chloride Carbon Dioxide BUN Creatinine Glucose POC Glucose 181 H Lactic Acid Calcium Phosphorus Total Bilirubin C-Reactive Protein NT-Pro-B Natriuret Pep Total Protein Albumin Urine WBC (Auto) 29.0 H Urine Creatinine 07/29/18 07/29/18 07/29/18 09:24 10:00 15:03 WBC RBC Hgb Hct MCV MCH MCHC RDW Lymph % (Auto) [place] % (Auto) Lymph # [place] # Seg Neutrophils % Seg Neuts % (Manual) Lymphocytes % (Manual) Monocytes % (Manual) Nucleated RBC % Seg Neutrophils # Seg Neutrophils # Man Lymphocytes # (Manual) Monocytes # (Manual) PT INR APTT D-Dimer Heparin Anti-Xa Level POC ABG pH POC ABG pCO2 POC ABG pO2 Sodium Potassium Chloride Carbon Dioxide BUN Creatinine Glucose POC Glucose 195 H 167 H Lactic Acid Calcium Phosphorus Total Bilirubin C-Reactive Protein NT-Pro-B Natriuret Pep Total Protein Albumin Urine WBC (Auto) Urine Creatinine 72.3 H 07/29/18 07/29/18 07/30/18 17:51 21:32 01:38 WBC RBC Hgb Hct MCV MCH MCHC RDW Lymph % (Auto) [place] % (Auto) Lymph # [place] # Seg Neutrophils % Seg Neuts % (Manual) Lymphocytes % (Manual) Monocytes % (Manual) Nucleated RBC % Seg Neutrophils # Seg Neutrophils # Man Lymphocytes # (Manual) Monocytes # (Manual) PT INR APTT D-Dimer Heparin Anti-Xa Level POC ABG pH POC ABG pCO2 POC ABG pO2 Sodium Potassium Chloride Carbon Dioxide BUN Creatinine Glucose POC Glucose 167 H 217 H 194 H Lactic Acid Calcium Phosphorus Total Bilirubin C-Reactive Protein NT-Pro-B Natriuret Pep Total Protein Albumin Urine WBC (Auto) Urine Creatinine 07/30/18 07/30/18 07/30/18 03:21 05:13 10:18 WBC RBC Hgb Hct MCV MCH MCHC RDW Lymph % (Auto) [place] % (Auto) Lymph # [place] # Seg Neutrophils % Seg Neuts % (Manual) Lymphocytes % (Manual) Monocytes % (Manual) Nucleated RBC % Seg Neutrophils # Seg Neutrophils # Man Lymphocytes # (Manual) Monocytes # (Manual) PT INR APTT D-Dimer Heparin Anti-Xa Level POC ABG pH POC ABG pCO2 50.3 H POC ABG pO2 78 L Sodium Potassium Chloride Carbon Dioxide BUN 41 H Creatinine Glucose 202 H POC Glucose 151 H Lactic Acid Calcium Phosphorus Total Bilirubin C-Reactive Protein NT-Pro-B Natriuret Pep Total Protein Albumin Urine WBC (Auto) Urine Creatinine 07/30/18 07/30/18 07/30/18 11:29 16:28 18:12 WBC RBC Hgb Hct MCV MCH MCHC RDW Lymph % (Auto) [place] % (Auto) Lymph # [place] # Seg Neutrophils % Seg Neuts % (Manual) Lymphocytes % (Manual) Monocytes % (Manual) Nucleated RBC % Seg Neutrophils # Seg Neutrophils # Man Lymphocytes # (Manual) Monocytes # (Manual) PT INR APTT D-Dimer Heparin Anti-Xa Level POC ABG pH 7.326 L POC ABG pCO2 53.2 H POC ABG pO2 70 L Sodium Potassium Chloride Carbon Dioxide BUN Creatinine Glucose POC Glucose 247 H 212 H Lactic Acid Calcium Phosphorus Total Bilirubin C-Reactive Protein NT-Pro-B Natriuret Pep Total Protein Albumin Urine WBC (Auto) Urine Creatinine 07/30/18 07/30/18 07/31/18 20:08 21:52 01:59 WBC RBC Hgb Hct MCV MCH MCHC RDW Lymph % (Auto) [place] % (Auto) Lymph # [place] # Seg Neutrophils % Seg Neuts % (Manual) Lymphocytes % (Manual) Monocytes % (Manual) Nucleated RBC % Seg Neutrophils # Seg Neutrophils # Man Lymphocytes # (Manual) Monocytes # (Manual) PT INR APTT D-Dimer Heparin Anti-Xa Level POC ABG pH POC ABG pCO2 POC ABG pO2 Sodium Potassium Chloride Carbon Dioxide BUN Creatinine Glucose POC Glucose 205 H 215 H 242 H Lactic Acid Calcium Phosphorus Total Bilirubin C-Reactive Protein NT-Pro-B Natriuret Pep Total Protein Albumin Urine WBC (Auto) Urine Creatinine 07/31/18 07/31/18 07/31/18 03:14 03:14 04:55 WBC RBC Hgb 10.6 L Hct 33.2 L MCV MCH MCHC RDW Lymph % (Auto) [place] % (Auto) Lymph # [place] # Seg Neutrophils % Seg Neuts % (Manual) Lymphocytes % (Manual) Monocytes % (Manual) Nucleated RBC % Seg Neutrophils # Seg Neutrophils # Man Lymphocytes # (Manual) Monocytes # (Manual) PT INR APTT D-Dimer Heparin Anti-Xa Level POC ABG pH 7.331 L POC ABG pCO2 67.1 H POC ABG pO2 Sodium Potassium Chloride Carbon Dioxide BUN 36 H Creatinine 0.7 L Glucose 242 H POC Glucose Lactic Acid Calcium 10.3 H Phosphorus 2.30 L Total Bilirubin C-Reactive Protein NT-Pro-B Natriuret Pep Total Protein Albumin Urine WBC (Auto) Urine Creatinine 07/31/18 07/31/18 07/31/18 05:37 10:08 14:07 WBC RBC Hgb Hct MCV MCH MCHC RDW Lymph % (Auto) [place] % (Auto) Lymph # [place] # Seg Neutrophils % Seg Neuts % (Manual) Lymphocytes % (Manual) Monocytes % (Manual) Nucleated RBC % Seg Neutrophils # Seg Neutrophils # Man Lymphocytes # (Manual) Monocytes # (Manual) PT INR APTT D-Dimer Heparin Anti-Xa Level POC ABG pH POC ABG pCO2 POC ABG pO2 Sodium Potassium Chloride Carbon Dioxide BUN Creatinine Glucose POC Glucose 193 H 247 H 225 H Lactic Acid Calcium Phosphorus Total Bilirubin C-Reactive Protein NT-Pro-B Natriuret Pep Total Protein Albumin Urine WBC (Auto) Urine Creatinine 07/31/18 07/31/18 08/01/18 18:12 21:34 02:00 WBC RBC Hgb Hct MCV MCH MCHC RDW Lymph % (Auto) [place] % (Auto) Lymph # [place] # Seg Neutrophils % Seg Neuts % (Manual) Lymphocytes % (Manual) Monocytes % (Manual) Nucleated RBC % Seg Neutrophils # Seg Neutrophils # Man Lymphocytes # (Manual) Monocytes # (Manual) PT INR APTT D-Dimer Heparin Anti-Xa Level POC ABG pH POC ABG pCO2 POC ABG pO2 Sodium Potassium Chloride Carbon Dioxide BUN Creatinine Glucose POC Glucose 197 H 204 H 239 H Lactic Acid Calcium Phosphorus Total Bilirubin C-Reactive Protein NT-Pro-B Natriuret Pep Total Protein Albumin Urine WBC (Auto) Urine Creatinine 08/01/18 08/01/18 08/01/18 04:13 04:37 05:29 WBC RBC Hgb Hct MCV MCH MCHC RDW Lymph % (Auto) [place] % (Auto) Lymph # [place] # Seg Neutrophils % Seg Neuts % (Manual) Lymphocytes % (Manual) Monocytes % (Manual) Nucleated RBC % Seg Neutrophils # Seg Neutrophils # Man Lymphocytes # (Manual) Monocytes # (Manual) PT INR APTT D-Dimer Heparin Anti-Xa Level POC ABG pH 7.296 L POC ABG pCO2 81.9 H POC ABG pO2 190 H Sodium 150 H D Potassium Chloride Carbon Dioxide 37 H D BUN 37 H Creatinine 0.6 L Glucose 223 H POC Glucose 219 H Lactic Acid Calcium Phosphorus Total Bilirubin C-Reactive Protein NT-Pro-B Natriuret Pep Total Protein Albumin Urine WBC (Auto) Urine Creatinine 08/01/18 08/01/18 08/01/18 09:28 11:00 17:36 WBC RBC Hgb Hct MCV MCH MCHC RDW Lymph % (Auto) [place] % (Auto) Lymph # [place] # Seg Neutrophils % Seg Neuts % (Manual) Lymphocytes % (Manual) Monocytes % (Manual) Nucleated RBC % Seg Neutrophils # Seg Neutrophils # Man Lymphocytes # (Manual) Monocytes # (Manual) PT INR APTT D-Dimer Heparin Anti-Xa Level POC ABG pH POC ABG pCO2 61.2 H POC ABG pO2 69 L Sodium Potassium Chloride Carbon Dioxide BUN Creatinine Glucose POC Glucose 185 H 234 H Lactic Acid Calcium Phosphorus Total Bilirubin C-Reactive Protein NT-Pro-B Natriuret Pep Total Protein Albumin Urine WBC (Auto) Urine Creatinine 08/01/18 08/02/18 08/02/18 21:54 00:08 00:44 WBC RBC Hgb Hct MCV MCH MCHC RDW Lymph % (Auto) [place] % (Auto) Lymph # [place] # Seg Neutrophils % Seg Neuts % (Manual) Lymphocytes % (Manual) Monocytes % (Manual) Nucleated RBC % Seg Neutrophils # Seg Neutrophils # Man Lymphocytes # (Manual) Monocytes # (Manual) PT INR APTT D-Dimer Heparin Anti-Xa Level 0.77 H POC ABG pH POC ABG pCO2 66.4 H POC ABG pO2 64 L Sodium Potassium Chloride Carbon Dioxide BUN Creatinine Glucose POC Glucose 242 H Lactic Acid Calcium Phosphorus Total Bilirubin C-Reactive Protein NT-Pro-B Natriuret Pep Total Protein Albumin Urine WBC (Auto) Urine Creatinine 08/02/18 08/02/18 08/02/18 02:46 04:45 04:45 WBC RBC Hgb 10.7 L Hct 33.7 L MCV MCH MCHC RDW Lymph % (Auto) [place] % (Auto) Lymph # [place] # Seg Neutrophils % Seg Neuts % (Manual) Lymphocytes % (Manual) Monocytes % (Manual) Nucleated RBC % Seg Neutrophils # Seg Neutrophils # Man Lymphocytes # (Manual) Monocytes # (Manual) PT INR APTT D-Dimer Heparin Anti-Xa Level POC ABG pH POC ABG pCO2 POC ABG pO2 Sodium 152 H Potassium Chloride 108.1 H Carbon Dioxide 39 H BUN 38 H Creatinine 0.6 L Glucose 226 H POC Glucose 206 H Lactic Acid Calcium Phosphorus Total Bilirubin C-Reactive Protein NT-Pro-B Natriuret Pep Total Protein Albumin Urine WBC (Auto) Urine Creatinine 08/02/18 08/02/18 08/02/18 05:31 09:46 14:23 WBC RBC Hgb Hct MCV MCH MCHC RDW Lymph % (Auto) [place] % (Auto) Lymph # [place] # Seg Neutrophils % Seg Neuts % (Manual) Lymphocytes % (Manual) Monocytes % (Manual) Nucleated RBC % Seg Neutrophils # Seg Neutrophils # Man Lymphocytes # (Manual) Monocytes # (Manual) PT INR APTT D-Dimer Heparin Anti-Xa Level 0.91 H POC ABG pH POC ABG pCO2 POC ABG pO2 Sodium Potassium Chloride Carbon Dioxide BUN Creatinine Glucose POC Glucose 214 H 210 H Lactic Acid Calcium Phosphorus Total Bilirubin C-Reactive Protein NT-Pro-B Natriuret Pep Total Protein Albumin Urine WBC (Auto) Urine Creatinine 08/02/18 08/02/18 08/02/18 15:46 17:56 21:50 WBC RBC Hgb Hct MCV MCH MCHC RDW Lymph % (Auto) [place] % (Auto) Lymph # [place] # Seg Neutrophils % Seg Neuts % (Manual) Lymphocytes % (Manual) Monocytes % (Manual) Nucleated RBC % Seg Neutrophils # Seg Neutrophils # Man Lymphocytes # (Manual) Monocytes # (Manual) PT INR APTT D-Dimer Heparin Anti-Xa Level 0.99 H POC ABG pH POC ABG pCO2 POC ABG pO2 Sodium Potassium Chloride Carbon Dioxide BUN Creatinine Glucose POC Glucose 252 H 222 H Lactic Acid Calcium Phosphorus Total Bilirubin C-Reactive Protein NT-Pro-B Natriuret Pep Total Protein Albumin Urine WBC (Auto) Urine Creatinine 08/03/18 08/03/18 08/03/18 02:18 05:21 05:25 WBC RBC Hgb Hct MCV MCH MCHC RDW Lymph % (Auto) [place] % (Auto) Lymph # [place] # Seg Neutrophils % Seg Neuts % (Manual) Lymphocytes % (Manual) Monocytes % (Manual) Nucleated RBC % Seg Neutrophils # Seg Neutrophils # Man Lymphocytes # (Manual) Monocytes # (Manual) PT INR APTT D-Dimer Heparin Anti-Xa Level POC ABG pH POC ABG pCO2 POC ABG pO2 Sodium 151 H Potassium Chloride 107.3 H Carbon Dioxide 37 H BUN 42 H Creatinine 0.6 L Glucose 263 H POC Glucose 241 H 241 H Lactic Acid Calcium Phosphorus Total Bilirubin C-Reactive Protein NT-Pro-B Natriuret Pep Total Protein Albumin Urine WBC (Auto) Urine Creatinine 08/03/18 08/03/18 08/03/18 09:11 12:20 14:33 WBC RBC Hgb Hct MCV MCH MCHC RDW Lymph % (Auto) [place] % (Auto) Lymph # [place] # Seg Neutrophils % Seg Neuts % (Manual) Lymphocytes % (Manual) Monocytes % (Manual) Nucleated RBC % Seg Neutrophils # Seg Neutrophils # Man Lymphocytes # (Manual) Monocytes # (Manual) PT INR APTT D-Dimer Heparin Anti-Xa Level POC ABG pH POC ABG pCO2 POC ABG pO2 Sodium Potassium Chloride Carbon Dioxide BUN Creatinine Glucose POC Glucose 272 H 234 H 247 H Lactic Acid Calcium Phosphorus Total Bilirubin C-Reactive Protein NT-Pro-B Natriuret Pep Total Protein Albumin Urine WBC (Auto) Urine Creatinine 08/03/18 08/03/18 08/04/18 16:48 21:21 01:56 WBC RBC Hgb Hct MCV MCH MCHC RDW Lymph % (Auto) [place] % (Auto) Lymph # [place] # Seg Neutrophils % Seg Neuts % (Manual) Lymphocytes % (Manual) Monocytes % (Manual) Nucleated RBC % Seg Neutrophils # Seg Neutrophils # Man Lymphocytes # (Manual) Monocytes # (Manual) PT INR APTT D-Dimer Heparin Anti-Xa Level POC ABG pH POC ABG pCO2 POC ABG pO2 Sodium Potassium Chloride Carbon Dioxide BUN Creatinine Glucose POC Glucose 180 H 189 H Lactic Acid Calcium Phosphorus Total Bilirubin C-Reactive Protein 2.30 H NT-Pro-B Natriuret Pep Total Protein Albumin Urine WBC (Auto) Urine Creatinine 08/04/18 08/04/18 08/04/18 01:58 05:05 05:05 WBC 25.5 H RBC 3.31 L Hgb 10.8 L Hct 34.1 L MCV 103 H MCH 33 H MCHC RDW 16.0 H Lymph % (Auto) [place] % (Auto) Lymph # [place] # Seg Neutrophils % Seg Neuts % (Manual) Lymphocytes % (Manual) 8.0 L Monocytes % (Manual) Nucleated RBC % 2.0 H Seg Neutrophils # Seg Neutrophils # Man 16.3 H Lymphocytes # (Manual) Monocytes # (Manual) 1.0 H PT INR APTT D-Dimer Heparin Anti-Xa Level 0.79 H POC ABG pH POC ABG pCO2 POC ABG pO2 Sodium 148 H Potassium Chloride Carbon Dioxide 36 H BUN 35 H Creatinine 0.6 L Glucose 160 H POC Glucose Lactic Acid Calcium Phosphorus Total Bilirubin C-Reactive Protein NT-Pro-B Natriuret Pep Total Protein Albumin Urine WBC (Auto) Urine Creatinine 08/04/18 08/04/18 08/04/18 05:24 05:33 08:46 WBC RBC Hgb Hct MCV MCH MCHC RDW Lymph % (Auto) [place] % (Auto) Lymph # [place] # Seg Neutrophils % Seg Neuts % (Manual) Lymphocytes % (Manual) Monocytes % (Manual) Nucleated RBC % Seg Neutrophils # Seg Neutrophils # Man Lymphocytes # (Manual) Monocytes # (Manual) PT INR APTT D-Dimer Heparin Anti-Xa Level 0.76 H POC ABG pH POC ABG pCO2 65.7 H POC ABG pO2 63 L Sodium Potassium Chloride Carbon Dioxide BUN Creatinine Glucose POC Glucose 159 H Lactic Acid Calcium Phosphorus Total Bilirubin C-Reactive Protein NT-Pro-B Natriuret Pep Total Protein Albumin Urine WBC (Auto) Urine Creatinine 08/04/18 08/04/18 08/04/18 09:12 15:38 18:20 WBC RBC Hgb Hct MCV MCH MCHC RDW Lymph % (Auto) [place] % (Auto) Lymph # [place] # Seg Neutrophils % Seg Neuts % (Manual) Lymphocytes % (Manual) Monocytes % (Manual) Nucleated RBC % Seg Neutrophils # Seg Neutrophils # Man Lymphocytes # (Manual) Monocytes # (Manual) PT INR APTT D-Dimer Heparin Anti-Xa Level POC ABG pH POC ABG pCO2 POC ABG pO2 Sodium Potassium Chloride Carbon Dioxide BUN Creatinine Glucose POC Glucose 140 H 267 H 252 H Lactic Acid Calcium Phosphorus Total Bilirubin C-Reactive Protein NT-Pro-B Natriuret Pep Total Protein Albumin Urine WBC (Auto) Urine Creatinine 08/04/18 08/05/18 08/05/18 21:17 02:51 04:36 WBC RBC Hgb Hct MCV MCH MCHC RDW Lymph % (Auto) [place] % (Auto) Lymph # [place] # Seg Neutrophils % Seg Neuts % (Manual) Lymphocytes % (Manual) Monocytes % (Manual) Nucleated RBC % Seg Neutrophils # Seg Neutrophils # Man Lymphocytes # (Manual) Monocytes # (Manual) PT INR APTT D-Dimer Heparin Anti-Xa Level POC ABG pH POC ABG pCO2 POC ABG pO2 Sodium Potassium Chloride Carbon Dioxide BUN Creatinine Glucose POC Glucose 181 H 240 H 255 H Lactic Acid Calcium Phosphorus Total Bilirubin C-Reactive Protein NT-Pro-B Natriuret Pep Total Protein Albumin Urine WBC (Auto) Urine Creatinine 08/05/18 08/05/18 08/05/18 04:55 10:21 12:39 WBC 21.8 H RBC 3.18 L Hgb 10.3 L Hct 32.6 L MCV 103 H MCH 33 H MCHC RDW 16.3 H Lymph % (Auto) [place] % (Auto) Lymph # [place] # Seg Neutrophils % Seg Neuts % (Manual) 88.0 H Lymphocytes % (Manual) 4.0 L Monocytes % (Manual) Nucleated RBC % Seg Neutrophils # Seg Neutrophils # Man 19.2 H Lymphocytes # (Manual) 0.9 L Monocytes # (Manual) PT INR APTT D-Dimer Heparin Anti-Xa Level POC ABG pH 7.506 H POC ABG pCO2 56.0 H POC ABG pO2 63 L Sodium Potassium Chloride Carbon Dioxide BUN Creatinine Glucose POC Glucose 227 H Lactic Acid Calcium Phosphorus Total Bilirubin C-Reactive Protein NT-Pro-B Natriuret Pep Total Protein Albumin Urine WBC (Auto) Urine Creatinine 08/05/18 08/05/18 08/05/18 12:39 14:10 17:30 WBC RBC Hgb Hct MCV MCH MCHC RDW Lymph % (Auto) [place] % (Auto) Lymph # [place] # Seg Neutrophils % Seg Neuts % (Manual) Lymphocytes % (Manual) Monocytes % (Manual) Nucleated RBC % Seg Neutrophils # Seg Neutrophils # Man Lymphocytes # (Manual) Monocytes # (Manual) PT INR APTT D-Dimer Heparin Anti-Xa Level < 0.10 L POC ABG pH POC ABG pCO2 POC ABG pO2 Sodium Potassium Chloride 96.8 L Carbon Dioxide 38 H BUN 36 H Creatinine 0.6 L Glucose 218 H POC Glucose 221 H Lactic Acid Calcium Phosphorus Total Bilirubin C-Reactive Protein NT-Pro-B Natriuret Pep Total Protein Albumin Urine WBC (Auto) Urine Creatinine 08/05/18 08/05/18 08/06/18 18:32 23:32 02:26 WBC RBC Hgb Hct MCV MCH MCHC RDW Lymph % (Auto) [place] % (Auto) Lymph # [place] # Seg Neutrophils % Seg Neuts % (Manual) Lymphocytes % (Manual) Monocytes % (Manual) Nucleated RBC % Seg Neutrophils # Seg Neutrophils # Man Lymphocytes # (Manual) Monocytes # (Manual) PT INR APTT D-Dimer Heparin Anti-Xa Level POC ABG pH POC ABG pCO2 POC ABG pO2 Sodium Potassium Chloride Carbon Dioxide BUN Creatinine Glucose POC Glucose 253 H 215 H 227 H Lactic Acid Calcium Phosphorus Total Bilirubin C-Reactive Protein NT-Pro-B Natriuret Pep Total Protein Albumin Urine WBC (Auto) Urine Creatinine 08/06/18 08/06/18 08/06/18 05:17 05:17 05:32 WBC 18.9 H RBC 3.06 L Hgb 10.2 L Hct 31.3 L MCV 102 H MCH 33 H MCHC RDW 16.1 H Lymph % (Auto) [place] % (Auto) Lymph # [place] # Seg Neutrophils % Seg Neuts % (Manual) Lymphocytes % (Manual) Monocytes % (Manual) Nucleated RBC % Seg Neutrophils # Seg Neutrophils # Man Lymphocytes # (Manual) Monocytes # (Manual) PT INR APTT D-Dimer Heparin Anti-Xa Level POC ABG pH 7.468 H POC ABG pCO2 59.5 H POC ABG pO2 64 L Sodium Potassium Chloride Carbon Dioxide 37 H BUN 37 H Creatinine 0.5 L Glucose 226 H POC Glucose Lactic Acid Calcium Phosphorus Total Bilirubin C-Reactive Protein NT-Pro-B Natriuret Pep Total Protein Albumin Urine WBC (Auto) Urine Creatinine 08/06/18 08/06/18 08/06/18 10:11 15:03 17:48 WBC RBC Hgb Hct MCV MCH MCHC RDW Lymph % (Auto) [place] % (Auto) Lymph # [place] # Seg Neutrophils % Seg Neuts % (Manual) Lymphocytes % (Manual) Monocytes % (Manual) Nucleated RBC % Seg Neutrophils # Seg Neutrophils # Man Lymphocytes # (Manual) Monocytes # (Manual) PT INR APTT D-Dimer Heparin Anti-Xa Level POC ABG pH POC ABG pCO2 POC ABG pO2 Sodium Potassium Chloride Carbon Dioxide BUN Creatinine Glucose POC Glucose 207 H 229 H 188 H Lactic Acid Calcium Phosphorus Total Bilirubin C-Reactive Protein NT-Pro-B Natriuret Pep Total Protein Albumin Urine WBC (Auto) Urine Creatinine 08/06/18 08/07/18 08/07/18 22:53 01:55 05:30 WBC RBC Hgb Hct MCV MCH MCHC RDW Lymph % (Auto) [place] % (Auto) Lymph # [place] # Seg Neutrophils % Seg Neuts % (Manual) Lymphocytes % (Manual) Monocytes % (Manual) Nucleated RBC % Seg Neutrophils # Seg Neutrophils # Man Lymphocytes # (Manual) Monocytes # (Manual) PT INR APTT D-Dimer Heparin Anti-Xa Level POC ABG pH POC ABG pCO2 69.6 H POC ABG pO2 64 L Sodium Potassium Chloride Carbon Dioxide BUN Creatinine Glucose POC Glucose 146 H 143 H Lactic Acid Calcium Phosphorus Total Bilirubin C-Reactive Protein NT-Pro-B Natriuret Pep Total Protein Albumin Urine WBC (Auto) Urine Creatinine 08/07/18 08/07/18 08/07/18 09:59 14:16 15:08 WBC RBC Hgb 10.3 L Hct 32.2 L MCV MCH MCHC RDW Lymph % (Auto) [place] % (Auto) Lymph # [place] # Seg Neutrophils % Seg Neuts % (Manual) Lymphocytes % (Manual) Monocytes % (Manual) Nucleated RBC % Seg Neutrophils # Seg Neutrophils # Man Lymphocytes # (Manual) Monocytes # (Manual) PT INR APTT D-Dimer Heparin Anti-Xa Level POC ABG pH POC ABG pCO2 POC ABG pO2 Sodium Potassium Chloride Carbon Dioxide BUN Creatinine Glucose POC Glucose 188 H 223 H Lactic Acid Calcium Phosphorus Total Bilirubin C-Reactive Protein NT-Pro-B Natriuret Pep Total Protein Albumin Urine WBC (Auto) Urine Creatinine 08/07/18 08/07/18 08/07/18 15:08 17:39 22:04 WBC RBC Hgb Hct MCV MCH MCHC RDW Lymph % (Auto) [place] % (Auto) Lymph # [place] # Seg Neutrophils % Seg Neuts % (Manual) Lymphocytes % (Manual) Monocytes % (Manual) Nucleated RBC % Seg Neutrophils # Seg Neutrophils # Man Lymphocytes # (Manual) Monocytes # (Manual) PT INR APTT 23.2 L D-Dimer Heparin Anti-Xa Level POC ABG pH POC ABG pCO2 POC ABG pO2 Sodium Potassium Chloride Carbon Dioxide BUN Creatinine Glucose POC Glucose 208 H 163 H Lactic Acid Calcium Phosphorus Total Bilirubin C-Reactive Protein NT-Pro-B Natriuret Pep Total Protein Albumin Urine WBC (Auto) Urine Creatinine 08/07/18 08/08/18 08/08/18 22:30 01:57 02:09 WBC 14.6 H RBC 2.88 L Hgb 9.5 L Hct 29.9 L MCV 104 H MCH 33 H MCHC RDW 16.8 H Lymph % (Auto) [place] % (Auto) Lymph # [place] # Seg Neutrophils % Seg Neuts % (Manual) 73.0 H Lymphocytes % (Manual) 9.0 L Monocytes % (Manual) 10.0 H Nucleated RBC % Seg Neutrophils # Seg Neutrophils # Man 10.7 H Lymphocytes # (Manual) Monocytes # (Manual) 1.5 H PT INR APTT D-Dimer Heparin Anti-Xa Level 0.25 L POC ABG pH POC ABG pCO2 POC ABG pO2 Sodium Potassium Chloride Carbon Dioxide BUN Creatinine Glucose POC Glucose 120 H Lactic Acid Calcium Phosphorus Total Bilirubin C-Reactive Protein NT-Pro-B Natriuret Pep Total Protein Albumin Urine WBC (Auto) Urine Creatinine 08/08/18 08/08/18 08/08/18 02:09 04:58 05:19 WBC RBC Hgb Hct MCV MCH MCHC RDW Lymph % (Auto) [place] % (Auto) Lymph # [place] # Seg Neutrophils % Seg Neuts % (Manual) Lymphocytes % (Manual) Monocytes % (Manual) Nucleated RBC % Seg Neutrophils # Seg Neutrophils # Man Lymphocytes # (Manual) Monocytes # (Manual) PT INR APTT D-Dimer Heparin Anti-Xa Level POC ABG pH 7.461 H POC ABG pCO2 57.3 H POC ABG pO2 62 L Sodium Potassium Chloride Carbon Dioxide 39 H BUN 29 H Creatinine 0.5 L Glucose 124 H POC Glucose 139 H Lactic Acid Calcium Phosphorus Total Bilirubin C-Reactive Protein NT-Pro-B Natriuret Pep Total Protein Albumin Urine WBC (Auto) Urine Creatinine 08/08/18 08/08/18 08/08/18 10:22 14:52 16:12 WBC RBC Hgb Hct MCV MCH MCHC RDW Lymph % (Auto) [place] % (Auto) Lymph # [place] # Seg Neutrophils % Seg Neuts % (Manual) Lymphocytes % (Manual) Monocytes % (Manual) Nucleated RBC % Seg Neutrophils # Seg Neutrophils # Man Lymphocytes # (Manual) Monocytes # (Manual) PT INR APTT D-Dimer Heparin Anti-Xa Level POC ABG pH POC ABG pCO2 POC ABG pO2 Sodium Potassium Chloride Carbon Dioxide BUN Creatinine Glucose POC Glucose 169 H 149 H 136 H Lactic Acid Calcium Phosphorus Total Bilirubin C-Reactive Protein NT-Pro-B Natriuret Pep Total Protein Albumin Urine WBC (Auto) Urine Creatinine 08/09/18 08/09/18 08/09/18 02:26 03:52 03:52 WBC 15.9 H RBC 2.87 L Hgb 9.6 L Hct 30.7 L MCV 107 H MCH 34 H MCHC 31 L RDW 17.8 H Lymph % (Auto) 3.9 L [place] % (Auto) 8.1 H Lymph # 0.6 L [place] # 1.3 H Seg Neutrophils % 87.1 H Seg Neuts % (Manual) Lymphocytes % (Manual) Monocytes % (Manual) Nucleated RBC % Seg Neutrophils # 13.9 H Seg Neutrophils # Man Lymphocytes # (Manual) Monocytes # (Manual) PT INR APTT D-Dimer Heparin Anti-Xa Level 0.25 L POC ABG pH POC ABG pCO2 POC ABG pO2 Sodium Potassium Chloride Carbon Dioxide BUN Creatinine Glucose POC Glucose 126 H Lactic Acid Calcium Phosphorus Total Bilirubin C-Reactive Protein NT-Pro-B Natriuret Pep Total Protein Albumin Urine WBC (Auto) Urine Creatinine 08/09/18 08/09/18 08/09/18 03:52 05:34 06:48 WBC RBC Hgb Hct MCV MCH MCHC RDW Lymph % (Auto) [place] % (Auto) Lymph # [place] # Seg Neutrophils % Seg Neuts % (Manual) Lymphocytes % (Manual) Monocytes % (Manual) Nucleated RBC % Seg Neutrophils # Seg Neutrophils # Man Lymphocytes # (Manual) Monocytes # (Manual) PT INR APTT D-Dimer Heparin Anti-Xa Level POC ABG pH POC ABG pCO2 57.5 H POC ABG pO2 58 L Sodium Potassium Chloride Carbon Dioxide 39 H BUN 26 H Creatinine 0.5 L Glucose 128 H POC Glucose 171 H Lactic Acid Calcium Phosphorus Total Bilirubin C-Reactive Protein NT-Pro-B Natriuret Pep Total Protein Albumin Urine WBC (Auto) Urine Creatinine 08/09/18 08/09/18 08/09/18 09:28 09:36 13:44 WBC RBC Hgb Hct MCV MCH MCHC RDW Lymph % (Auto) [place] % (Auto) Lymph # [place] # Seg Neutrophils % Seg Neuts % (Manual) Lymphocytes % (Manual) Monocytes % (Manual) Nucleated RBC % Seg Neutrophils # Seg Neutrophils # Man Lymphocytes # (Manual) Monocytes # (Manual) PT INR APTT D-Dimer Heparin Anti-Xa Level 0.26 L POC ABG pH POC ABG pCO2 POC ABG pO2 Sodium Potassium Chloride Carbon Dioxide BUN Creatinine Glucose POC Glucose 183 H 184 H Lactic Acid Calcium Phosphorus Total Bilirubin C-Reactive Protein NT-Pro-B Natriuret Pep Total Protein Albumin Urine WBC (Auto) Urine Creatinine 08/09/18 08/10/18 08/10/18 17:55 04:49 05:20 WBC RBC Hgb Hct MCV MCH MCHC RDW Lymph % (Auto) [place] % (Auto) Lymph # [place] # Seg Neutrophils % Seg Neuts % (Manual) Lymphocytes % (Manual) Monocytes % (Manual) Nucleated RBC % Seg Neutrophils # Seg Neutrophils # Man Lymphocytes # (Manual) Monocytes # (Manual) PT INR APTT D-Dimer Heparin Anti-Xa Level POC ABG pH POC ABG pCO2 59.9 H POC ABG pO2 59 L Sodium Potassium Chloride Carbon Dioxide BUN Creatinine Glucose POC Glucose 148 H 59 L Lactic Acid Calcium Phosphorus Total Bilirubin C-Reactive Protein NT-Pro-B Natriuret Pep Total Protein Albumin Urine WBC (Auto) Urine Creatinine 08/10/18 08/10/18 08/10/18 05:53 17:12 21:17 WBC RBC Hgb Hct MCV MCH MCHC RDW Lymph % (Auto) [place] % (Auto) Lymph # [place] # Seg Neutrophils % Seg Neuts % (Manual) Lymphocytes % (Manual) Monocytes % (Manual) Nucleated RBC % Seg Neutrophils # Seg Neutrophils # Man Lymphocytes # (Manual) Monocytes # (Manual) PT INR APTT D-Dimer Heparin Anti-Xa Level POC ABG pH POC ABG pCO2 POC ABG pO2 Sodium Potassium Chloride Carbon Dioxide BUN Creatinine Glucose POC Glucose 128 H 110 H 109 H Lactic Acid Calcium Phosphorus Total Bilirubin C-Reactive Protein NT-Pro-B Natriuret Pep Total Protein Albumin Urine WBC (Auto) Urine Creatinine 08/11/18 08/11/18 08/11/18 00:54 02:28 04:17 WBC RBC Hgb 7.8 L Hct 24.1 L D MCV MCH MCHC RDW Lymph % (Auto) [place] % (Auto) Lymph # [place] # Seg Neutrophils % Seg Neuts % (Manual) Lymphocytes % (Manual) Monocytes % (Manual) Nucleated RBC % Seg Neutrophils # Seg Neutrophils # Man Lymphocytes # (Manual) Monocytes # (Manual) PT INR APTT D-Dimer Heparin Anti-Xa Level 0.19 L POC ABG pH POC ABG pCO2 POC ABG pO2 Sodium Potassium Chloride Carbon Dioxide BUN Creatinine Glucose POC Glucose 124 H Lactic Acid Calcium Phosphorus Total Bilirubin C-Reactive Protein NT-Pro-B Natriuret Pep Total Protein Albumin Urine WBC (Auto) Urine Creatinine 08/11/18 08/11/18 08/11/18 05:10 07:42 10:27 WBC RBC Hgb Hct MCV MCH MCHC RDW Lymph % (Auto) [place] % (Auto) Lymph # [place] # Seg Neutrophils % Seg Neuts % (Manual) Lymphocytes % (Manual) Monocytes % (Manual) Nucleated RBC % Seg Neutrophils # Seg Neutrophils # Man Lymphocytes # (Manual) Monocytes # (Manual) PT INR APTT D-Dimer Heparin Anti-Xa Level 0.20 L POC ABG pH POC ABG pCO2 POC ABG pO2 Sodium Potassium Chloride Carbon Dioxide BUN Creatinine Glucose POC Glucose 150 H 156 H Lactic Acid Calcium Phosphorus Total Bilirubin C-Reactive Protein NT-Pro-B Natriuret Pep Total Protein Albumin Urine WBC (Auto) Urine Creatinine 08/11/18 08/11/18 08/11/18 13:54 15:06 18:13 WBC RBC Hgb Hct MCV MCH MCHC RDW Lymph % (Auto) [place] % (Auto) Lymph # [place] # Seg Neutrophils % Seg Neuts % (Manual) Lymphocytes % (Manual) Monocytes % (Manual) Nucleated RBC % Seg Neutrophils # Seg Neutrophils # Man Lymphocytes # (Manual) Monocytes # (Manual) PT INR APTT D-Dimer Heparin Anti-Xa Level POC ABG pH 7.471 H POC ABG pCO2 45.5 H POC ABG pO2 79 L Sodium Potassium Chloride Carbon Dioxide BUN Creatinine Glucose POC Glucose 177 H 143 H Lactic Acid Calcium Phosphorus Total Bilirubin C-Reactive Protein NT-Pro-B Natriuret Pep Total Protein Albumin Urine WBC (Auto) Urine Creatinine 08/11/18 08/11/18 08/11/18 18:33 21:22 Unknown WBC RBC Hgb Hct MCV MCH MCHC RDW Lymph % (Auto) [place] % (Auto) Lymph # [place] # Seg Neutrophils % Seg Neuts % (Manual) Lymphocytes % (Manual) Monocytes % (Manual) Nucleated RBC % Seg Neutrophils # Seg Neutrophils # Man Lymphocytes # (Manual) Monocytes # (Manual) PT INR APTT D-Dimer Heparin Anti-Xa Level 0.29 L POC ABG pH POC ABG pCO2 POC ABG pO2 Sodium 136 L Potassium Chloride 96.5 L Carbon Dioxide 32 H D BUN Creatinine 0.5 L Glucose 186 H POC Glucose 151 H Lactic Acid Calcium Phosphorus Total Bilirubin C-Reactive Protein NT-Pro-B Natriuret Pep Total Protein Albumin Urine WBC (Auto) Urine Creatinine 08/11/18 08/12/18 08/12/18 Unknown 02:09 05:29 WBC 12.1 H RBC 2.50 L Hgb 8.2 L Hct 25.7 L MCV 103 H MCH 33 H MCHC RDW 17.0 H Lymph % (Auto) 5.1 L [place] % (Auto) 9.5 H Lymph # 0.6 L [place] # 1.2 H Seg Neutrophils % 84.8 H Seg Neuts % (Manual) Lymphocytes % (Manual) Monocytes % (Manual) Nucleated RBC % Seg Neutrophils # 10.3 H Seg Neutrophils # Man Lymphocytes # (Manual) Monocytes # (Manual) PT INR APTT D-Dimer Heparin Anti-Xa Level POC ABG pH POC ABG pCO2 POC ABG pO2 Sodium Potassium Chloride Carbon Dioxide BUN Creatinine Glucose POC Glucose 159 H 136 H Lactic Acid Calcium Phosphorus Total Bilirubin C-Reactive Protein NT-Pro-B Natriuret Pep Total Protein Albumin Urine WBC (Auto) Urine Creatinine 08/12/18 08/12/18 08/12/18 07:33 09:59 13:59 WBC RBC Hgb Hct MCV MCH MCHC RDW Lymph % (Auto) [place] % (Auto) Lymph # [place] # Seg Neutrophils % Seg Neuts % (Manual) Lymphocytes % (Manual) Monocytes % (Manual) Nucleated RBC % Seg Neutrophils # Seg Neutrophils # Man Lymphocytes # (Manual) Monocytes # (Manual) PT INR APTT D-Dimer Heparin Anti-Xa Level POC ABG pH POC ABG pCO2 POC ABG pO2 Sodium Potassium Chloride Carbon Dioxide BUN Creatinine Glucose POC Glucose 138 H 157 H 167 H Lactic Acid Calcium Phosphorus Total Bilirubin C-Reactive Protein NT-Pro-B Natriuret Pep Total Protein Albumin Urine WBC (Auto) Urine Creatinine 08/12/18 08/12/18 08/12/18 14:31 14:56 17:39 WBC RBC Hgb Hct MCV MCH MCHC RDW Lymph % (Auto) [place] % (Auto) Lymph # [place] # Seg Neutrophils % Seg Neuts % (Manual) Lymphocytes % (Manual) Monocytes % (Manual) Nucleated RBC % Seg Neutrophils # Seg Neutrophils # Man Lymphocytes # (Manual) Monocytes # (Manual) PT INR APTT D-Dimer Heparin Anti-Xa Level 1.18 H POC ABG pH 7.466 H POC ABG pCO2 POC ABG pO2 58 L Sodium Potassium Chloride Carbon Dioxide BUN Creatinine Glucose POC Glucose 168 H Lactic Acid Calcium Phosphorus Total Bilirubin C-Reactive Protein NT-Pro-B Natriuret Pep Total Protein Albumin Urine WBC (Auto) Urine Creatinine 08/12/18 08/13/18 08/13/18 21:38 02:17 05:20 WBC RBC Hgb 8.0 L Hct 24.5 L MCV MCH MCHC RDW Lymph % (Auto) [place] % (Auto) Lymph # [place] # Seg Neutrophils % Seg Neuts % (Manual) Lymphocytes % (Manual) Monocytes % (Manual) Nucleated RBC % Seg Neutrophils # Seg Neutrophils # Man Lymphocytes # (Manual) Monocytes # (Manual) PT INR APTT D-Dimer Heparin Anti-Xa Level POC ABG pH POC ABG pCO2 POC ABG pO2 Sodium Potassium Chloride Carbon Dioxide BUN Creatinine Glucose POC Glucose 168 H 157 H Lactic Acid Calcium Phosphorus Total Bilirubin C-Reactive Protein NT-Pro-B Natriuret Pep Total Protein Albumin Urine WBC (Auto) Urine Creatinine 08/13/18 08/13/18 09:28 10:07 WBC RBC Hgb Hct MCV MCH MCHC RDW Lymph % (Auto) [place] % (Auto) Lymph # [place] # Seg Neutrophils % Seg Neuts % (Manual) Lymphocytes % (Manual) Monocytes % (Manual) Nucleated RBC % Seg Neutrophils # Seg Neutrophils # Man Lymphocytes # (Manual) Monocytes # (Manual) PT INR APTT D-Dimer Heparin Anti-Xa Level POC ABG pH 7.453 H POC ABG pCO2 47.5 H POC ABG pO2 Sodium Potassium Chloride Carbon Dioxide BUN Creatinine Glucose POC Glucose 177 H Lactic Acid Calcium Phosphorus Total Bilirubin C-Reactive Protein NT-Pro-B Natriuret Pep Total Protein Albumin Urine WBC (Auto) Urine Creatinine Allied health notes reviewed: RT
[2018-08-13] MEDS: LANTUS SUB-Q SCH (22:02)
[2018-08-14] MEDS: CARDIZEM PO SCH ×5 (00:26→19:50)
[2018-08-14] MEDS: SODIUM CHLORIDE FLUSH SYRINGE 10 ML IV SCH ×2 (00:28→22:25)
[2018-08-14] MEDS: HumaLOG SUB-Q SCH ×5 (04:19→22:19)
[2018-08-14 06:04] LABS: BUN/Creatinine Ratio 22; Blood Urea Nitrogen 11 mg/dL (9-20); Calcium 8.7 mg/dL (8.4-10.2); Hemolysis Index 3
--- NOTE | 2018-08-14 08:48 | Progress Note ---
Assessment and Plan cont current cardiac meds, awaiting ltac, pt awake today and responding, discuss with yesterday, ltac placement - Patient Problems (1) ARF (acute renal failure) with tubular necrosis Current Visit: Yes Status: Acute (2) Acute respiratory failure Current Visit: Yes Status: Acute Qualifiers: Respiratory failure complication: hypoxia Qualified Code(s): J96.01 - Acute respiratory failure with hypoxia (3) DVT prophylaxis Current Visit: Yes Status: Acute (4) Transient atrial fibrillation Current Visit: Yes Status: Acute (5) COPD (chronic obstructive pulmonary disease) Current Visit: Yes Status: Chronic (6) Hyperlipemia Current Visit: Yes Status: Chronic Qualifiers: Hyperlipidemia type: Mixed hyperlipidemia (7) Hypertension Current Visit: Yes Status: Chronic Qualifiers: Hypertension type: essential hypertension Qualified Code(s): I10 - Essential (primary) hypertension (8) Nonobstructive atherosclerosis of coronary artery Current Visit: Yes Status: Chronic (9) Peripheral vascular disease Current Visit: Yes Status: Chronic Subjective Date of service: 08/14/18 Principal diagnosis: Acute hypoxemic respiratory failure; A-fib with RVR; Possible CHF; H/O DVT Interval history: pt is awake today, on vent , no compliants Objective Vital Signs Temp Pulse Pulse Pulse Resp Resp BP 08/14/18 08:00 99.3 F 91 H 21 114/75 08/14/18 07:46 86 30 H 114/75 08/14/18 07:30 89 27 H 114/75 08/14/18 07:16 96 H 28 H 114/75 08/14/18 07:00 101 H 22 128/81 08/14/18 06:46 101 H 14 128/81 08/14/18 06:30 98 H 22 128/81 08/14/18 06:16 87 25 H 08/14/18 06:00 95 H 31 H 145/71 08/14/18 05:46 101 H 24 145/71 08/14/18 05:30 97 H 34 H 145/71 08/14/18 05:16 95 H 28 H 145/71 08/14/18 05:00 85 24 145/71 08/14/18 04:46 85 24 145/70 08/14/18 04:30 84 22 145/70 08/14/18 04:20 86 145/70 08/14/18 04:16 84 26 H 112/56 08/14/18 04:00 99.4 F 93 H 24 141/74 08/14/18 03:54 88 141/74 08/14/18 03:46 96 H 16 141/74 08/14/18 03:30 86 27 H 141/74 08/14/18 03:16 90 18 141/74 08/14/18 03:00 96 H 19 132/61 08/14/18 02:46 91 H 30 H 132/61 08/14/18 02:30 80 28 H 132/61 08/14/18 02:16 86 21 132/61 08/14/18 02:00 82 25 H 132/61 08/14/18 01:46 81 26 H 123/59 08/14/18 01:30 82 27 H 123/59 08/14/18 01:16 82 25 H 123/59 08/14/18 01:00 84 26 H 123/59 08/14/18 00:46 85 26 H 125/68 08/14/18 00:30 87 84 21 125/68 08/14/18 00:26 88 125/68 08/14/18 00:16 87 25 H 125/84 08/14/18 00:14 87 08/14/18 00:04 08/14/18 00:00 100.0 F H 88 17 118/52 08/13/18 23:46 91 H 18 118/52 08/13/18 23:30 89 25 H 118/52 18 23:16 87 22 118/52 08/13/18 23:03 87 27 H 118/52 08/13/18 23:00 98 H 28 H 140/65 18 22:57 98 H 140/65 08/13/18 22:46 89 33 H 140/65 08/13/18 22:36 90 26 H 140/65 08/13/18 22:30 89 34 H 140/65 08/13/18 22:16 82 21 140/65 08/13/18 22:00 89 28 H 133/61 08/13/18 21:46 87 30 H 133/61 18 21:30 92 H 20 133/61 08/13/18 21:16 91 H 18 133/61 08/13/18 21:00 83 25 H 110/56 08/13/18 20:46 83 31 H 110/56 08/13/18 20:30 83 36 H 114/49 08/13/18 20:16 80 28 H 114/49 08/13/18 20:00 99.2 F 76 29 H 114/49 08/13/18 19:46 79 26 H 114/49 08/13/18 19:42 80 79 19 114/49 08/13/18 19:30 76 26 H 114/49 08/13/18 19:23 74 114/49 08/13/18 19:16 72 25 H 101/57 08/13/18 19:11 74 74 24 08/13/18 19:00 76 27 H 101/57 08/13/18 18:46 72 28 H 101/57 08/13/18 18:30 72 26 H 101/57 08/13/18 18:15 78 25 H 101/57 08/13/18 18:00 77 25 H 108/49 08/13/18 17:46 84 31 H 108/49 08/13/18 17:30 72 30 H 108/49 08/13/18 17:16 64 26 H 108/49 08/13/18 17:00 67 28 H 108/49 08/13/18 16:46 71 25 H 110/48 08/13/18 16:30 65 26 H 110/48 08/13/18 16:16 66 22 110/48 08/13/18 16:00 98.3 F 65 80 23 112/49 08/13/18 15:46 66 27 H 112/49 08/13/18 15:30 65 23 112/49 08/13/18 15:16 64 23 112/49 08/13/18 15:15 08/13/18 15:00 66 24 113/48 08/13/18 14:46 67 26 H 113/48 08/13/18 14:30 68 25 H 113/48 08/13/18 14:16 69 25 H 113/48 08/13/18 14:00 76 25 H 113/48 08/13/18 13:46 79 28 H 104/47 08/13/18 13:30 86 28 H 104/47 08/13/18 13:16 92 H 17 104/47 08/13/18 13:00 100 H 22 104/47 08/13/18 12:46 63 32 H 104/47 08/13/18 12:30 66 31 H 104/47 08/13/18 12:16 65 20 104/47 08/13/18 12:00 97.6 F 66 63 27 H 104/47 08/13/18 11:59 67 102/49 08/13/18 11:46 67 26 H 102/49 08/13/18 11:30 77 32 H 102/49 08/13/18 11:16 82 32 H 102/49 08/13/18 11:15 84 25 H 08/13/18 11:00 77 32 H 102/49 08/13/18 10:46 68 32 H 91/44 08/13/18 10:30 79 29 H 91/44 08/13/18 10:16 66 32 H 91/44 08/13/18 10:00 69 14 102/46 08/13/18 09:46 69 19 102/46 08/13/18 09:35 70 102/46 08/13/18 09:30 72 13 102/46 08/13/18 09:16 73 22 102/46 08/13/18 09:00 75 31 H 112/54 Pulse Ox Pulse Ox 08/14/18 08:00 96 08/14/18 07:46 94 08/14/18 07:30 95 08/14/18 07:16 91 08/14/18 07:00 08/14/18 06:46 08/14/18 06:30 08/14/18 06:16 08/14/18 06:00 08/14/18 05:46 91 08/14/18 05:30 93 08/14/18 05:16 95 08/14/18 05:00 96 08/14/18 04:46 97 08/14/18 04:30 97 08/14/18 04:20 08/14/18 04:16 96 08/14/18 04:00 99 08/14/18 03:54 95 08/14/18 03:46 97 08/14/18 03:30 95 08/14/18 03:16 96 08/14/18 03:00 94 08/14/18 02:46 94 08/14/18 02:30 96 08/14/18 02:16 97 08/14/18 02:00 96 08/14/18 01:46 98 08/14/18 01:30 98 08/14/18 01:16 98 08/14/18 01:00 98 08/14/18 00:46 99 08/14/18 00:30 98 08/14/18 00:26 08/14/18 00:16 98 08/14/18 00:14 08/14/18 00:04 100 08/14/18 00:00 96 08/13/18 23:46 85 08/13/18 23:30 97 08/13/18 23:16 97 08/13/18 23:03 98 08/13/18 23:00 97 100 08/13/18 22:57 97 08/13/18 22:46 95 08/13/18 22:36 54 L 08/13/18 22:30 92 08/13/18 22:16 91 08/13/18 22:00 91 08/13/18 21:46 90 08/13/18 21:30 93 08/13/18 21:16 92 08/13/18 21:00 96 08/13/18 20:46 93 08/13/18 20:30 95 08/13/18 20:16 93 08/13/18 20:00 95 08/13/18 19:46 93 08/13/18 19:42 94 08/13/18 19:30 95 08/13/18 19:23 08/13/18 19:16 94 08/13/18 19:11 94 08/13/18 19:00 95 08/13/18 18:46 95 08/13/18 18:30 96 08/13/18 18:15 94 08/13/18 18:00 95 08/13/18 17:46 93 08/13/18 17:30 95 08/13/18 17:16 94 08/13/18 17:00 95 08/13/18 16:46 97 08/13/18 16:30 96 08/13/18 16:16 98 08/13/18 16:00 96 08/13/18 15:46 95 08/13/18 15:30 98 18 15:16 98 08/13/18 15:15 95 08/13/18 15:00 98 08/13/18 14:46 97 08/13/18 14:30 96 08/13/18 14:16 96 08/13/18 14:00 94 08/13/18 13:46 95 08/13/18 13:30 92 08/13/18 13:16 88 08/13/18 13:00 87 08/13/18 12:46 96 08/13/18 12:30 96 08/13/18 12:16 96 08/13/18 12:00 96 08/13/18 11:59 08/13/18 11:46 96 08/13/18 11:30 94 08/13/18 11:16 95 08/13/18 11:15 95 08/13/18 11:00 95 08/13/18 10:46 93 08/13/18 10:30 93 08/13/18 10:16 96 08/13/18 10:00 96 08/13/18 09:46 97 08/13/18 09:35 08/13/18 09:30 96 08/13/18 09:16 97 08/13/18 09:00 96 - Physical Examination General: No Apparent Distress, Other (tracheostomy in place. Patient is alert and appears comfortable) HEENT: Positive: EOMI, Normocephaly, Mucus Membranes Moist Neck: Positive: neck supple, trachea midline. Negative: JVD/HJR Cardiac: Positive: Reg Rate and Rhythm Lungs: Positive: Decreased Breath Sounds Neuro: Positive: Grossly Intact Abdomen: Positive: Soft, Active Bowel Sounds Skin: Positive: Clear. Negative: Rash, Wound Musculoskeletal: No Fluid Collection, Normal Range of Motion Extremities: Present: upper extr. pulses, lower extr. pulses. Absent: edema - Labs and Meds Comprehensive Metabolic Panel 08/14/18 Range/Units 05:22 Sodium 140 (137-145) mmol/L Potassium 3.7 (3.6-5.0) mmol/L Chloride 99.3 (98-107) mmol/L Carbon Dioxide 30 (22-30) mmol/L BUN 11 (9-20) mg/dL Creatinine 0.5 L (0.8-1.5) mg/dL Glucose 125 H (75-100) mg/dL Calcium 8.7 (8.4-10.2) mg/dL - Imaging and Cardiology EKG: report reviewed, image reviewed Echo: report reviewed ( 07/27/2018 EF 60-65%, asymmetric septal hypertrophy, mild TR. 05/2017 showed EF 55-60%, grade 1 diastolic dysfunction, mild TR, RVSP 22mmHg. 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 Treat medically. ) - Telemetry EKG Rhythm: Sinus Rhythm - Allied health notes Allied health notes reviewed: RT
[2018-08-14] MEDS: PULMICORT IH SCH ×2 (09:07→20:02)
[2018-08-14] MEDS: BROVANA NEBU IH SCH ×2 (09:07→20:02)
[2018-08-14] MEDS: PEPCID PO SCH ×2 (10:07→21:39)
[2018-08-14] MEDS: VITAMIN B-12 PO SCH (10:07)
[2018-08-14] MEDS: CORDARONE PO SCH ×2 (10:08→21:39)
[2018-08-14] MEDS: PRAVACHOL PO SCH (10:08)
[2018-08-14] MEDS: ELIQUIS PO SCH ×2 (10:08→21:39)
--- NOTE | 2018-08-14 11:37 | Progress Note ---
Assessment and Plan Assessment and plan: Sepsis. Previous Blood cultures reveal Streptococcus anginosus. New sepsis, fever with leucocytosis: Unclear etiology. UA without infection, CXR unchanged, WBC stable to slightly improving, blood cultures negative thus far. Continue to monitor off abx for now. Acute kidney injury. Etiology secondary to above. Continue to monitor creatinine. Left lower lobe pneumonia. Continue antibiotics and follow chest x-ray. Sputum culture revealed Pseudomonas and MSSA Acute hypoxemic respiratory failure. Etiology secondary to above. Continue on mechanical ventilation and weaning per pulmonary. Patient is status post trach and PEG on 08/11/18. Patient tolerating CPAP this morning. Atrial fibrillation. Continue amiodarone and diltiazem. Cardiology following. REGAN negative. Cont. Eliquis Acute renal failure. Etiology likely secondary to sepsis/ATN. Renal ultrasound unremarkable. COPD exacerbation. Continue bronchodilators/nebulizers. IV steroids. Hypertension. Resume antihypertensive medications as needed. Hyperlipidemia. Peripheral vascular disease. The high probability of a clinically significant, sudden or life threatening deterioration of the [respiratory] system(s) required my full and direct attention, intervention and personal management. The aggregate critical care time was [32] minutes. This time is in addition to time spent performing reported procedures but includes the following: [x] Data Review and interpretation [x] Patient assessment and monitoring of vital signs [x] Documentation [x] Medication orders and management History Interval history: 73 YO Male with H/O COPD, PVD, HTN, HLD, Seizure Disorder, Skin Cancer presents to ED for evaluation. Pt states that he has experienced shortness and chest p alpitations over the past 2 days with worsening symptoms over the past 1 day. Pt acknowledges decreased exercise tolerance, as well as dyspnea on exertion. 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 Pt denies fever, chills, leg swelling, calf pain, CP with deep breathing, hemoptysis, Prolonged air/car travel, or immobility, Back Pain, Syncope, Lightheadedness, recent ill contacts, unintentional weight loss, night sweats, or bone pain. Pt seen and evaluated in ED and found to have Atrial Fib with RVR refractory to cardizem drip, but improved with Amiodarone Drip, Acute Hypoxemic Respiratory Failure, SIRS. Pt admitted to ICU. The patient later after admission had further decompensation with respiratory distress. Patient reportedly was satting 60-70% on a nonrebreather and had to be emergently intubated. The patient remains intubated on mechanical ventilation Hospitalist Physical - Constitutional Vitals: Temp Pulse Resp BP Pulse Ox 99.3 F 77 13 110/62 97 08/14/18 08:00 08/14/18 11:23 08/14/18 11:23 08/14/18 11:23 08/14/18 11:23 General appearance: Present: other (intubated on mechanical ventilation) - EENT Eyes: Present: PERRL, EOM intact ENT: hearing intact, clear oral mucosa, dentition normal - Neck Neck: Present: supple, normal ROM - Respiratory Respiratory effort: normal Respiratory: bilateral: CTA - Cardiovascular Rhythm: regular Heart Sounds: Present: S1 & S2. Absent: gallop, rub - Extremities Extremities: no ischemia, No edema, Full ROM - Abdominal General gastrointestinal: soft, non-tender, non-distended, normal bowel sounds - Integumentary Integumentary: Present: clear, warm, dry - Neurologic Neurologic: CNII-XII intact, moves all extremities Results - Labs CBC & Chem 7: 08/13/18 05:20 08/14/18 05:22 Labs: Laboratory Last Values WBC 12.1 K/mm3 (4.5-11.0) H 08/11/18 Unknown RBC 2.50 M/mm3 (3.65-5.03) L 08/11/18 Unknown Hgb 8.0 gm/dl (11.8-15.2) L 08/13/18 05:20 Hct 24.5 % (35.5-45.6) L 08/13/18 05:20 MCV 103 fl (84-94) H 08/11/18 Unknown MCH 33 pg (28-32) H 08/11/18 Unknown MCHC 32 % (32-34) 08/11/18 Unknown RDW 17.0 % (13.2-15.2) H 08/11/18 Unknown Plt Count 246 K/mm3 (140-440) 08/13/18 05:20 Lymph % (Auto) 5.1 % (13.4-35.0) L 08/11/18 Unknown [place] % (Auto) 9.5 % (0.0-7.3) H 08/11/18 Unknown Eos % (Auto) 0.3 % (0.0-4.3) 08/11/18 Unknown Baso % (Auto) 0.3 % (0.0-1.8) 08/11/18 Unknown Lymph # 0.6 K/mm3 (1.2-5.4) L 08/11/18 Unknown [place] # 1.2 K/mm3 (0.0-0.8) H 08/11/18 Unknown Eos # 0.0 K/mm3 (0.0-0.4) 08/11/18 Unknown Baso # 0.0 K/mm3 (0.0-0.1) 08/11/18 Unknown Add Manual Diff Complete 08/08/18 02:09 Total Counted 100 08/08/18 02:09 Seg Neutrophils % 84.8 % (40.0-70.0) H 08/11/18 Unknown Seg Neuts % (Manual) 73.0 % (40.0-70.0) H 08/08/18 02:09 Band Neutrophils % 5.0 % 08/08/18 02:09 Lymphocytes % (Manual) 9.0 % (13.4-35.0) L 08/08/18 02:09 Reactive Lymphs % (Man) 0 % 08/08/18 02:09 Monocytes % (Manual) 10.0 % (0.0-7.3) H 08/08/18 02:09 Eosinophils % (Manual) 0 % (0.0-4.3) 08/08/18 02:09 Basophils % (Manual) 0 % (0.0-1.8) 08/08/18 02:09 Metamyelocytes % 3.0 % 08/08/18 02:09 Myelocytes % 0 % 08/08/18 02:09 Promyelocytes % 0 % 08/08/18 02:09 Blast Cells % 0 % 08/08/18 02:09 Nucleated RBC % Not Reportable 08/08/18 02:09 Seg Neutrophils # 10.3 K/mm3 (1.8-7.7) H 08/11/18 Unknown Seg Neutrophils # Man 10.7 K/mm3 (1.8-7.7) H 08/08/18 02:09 Band Neutrophils # 0.7 K/mm3 08/08/18 02:09 Lymphocytes # (Manual) 1.3 K/mm3 (1.2-5.4) 08/08/18 02:09 Abs React Lymphs (Man) 0.0 K/mm3 08/08/18 02:09 Monocytes # (Manual) 1.5 K/mm3 (0.0-0.8) H 08/08/18 02:09 Eosinophils # (Manual) 0.0 K/mm3 (0.0-0.4) 08/08/18 02:09 Basophils # (Manual) 0.0 K/mm3 (0.0-0.1) 08/08/18 02:09 Metamyelocytes # 0.4 K/mm3 08/08/18 02:09 Myelocytes # 0.0 K/mm3 08/08/18 02:09 Promyelocytes # 0.0 K/mm3 08/08/18 02:09 Blast Cells # 0.0 K/mm3 08/08/18 02:09 Pathologist Review 07/28/18 06:01 WBC Morphology Not Reportable 08/08/18 02:09 Hypersegmented Neuts Not Reportable 08/08/18 02:09 Hyposegmented Neuts Not Reportable 08/08/18 02:09 Hypogranular Neuts Not Reportable 08/08/18 02:09 Smudge Cells Not Reportable 08/08/18 02:09 Toxic Granulation Not Reportable 08/08/18 02:09 Toxic Vacuolation Not Reportable 08/08/18 02:09 Dohle Bodies Not Reportable 08/08/18 02:09 Pelger-Huet Anomaly Not Reportable 08/08/18 02:09 Janiya Rods Not Reportable 08/08/18 02:09 Platelet Estimate Appears normal 08/08/18 02:09 Clumped Platelets Not Reportable 08/08/18 02:09 Plt Clumps, EDTA Not Reportable 08/08/18 02:09 Large Platelets Not Reportable 08/08/18 02:09 Giant Platelets Not Reportable 08/08/18 02:09 Platelet Satelliting Not Reportable 08/08/18 02:09 Plt Morphology Comment Not Reportable 08/08/18 02:09 RBC Morphology Not Reportable 08/08/18 02:09 Dimorphic RBCs Not Reportable 08/08/18 02:09 Polychromasia Not Reportable 08/08/18 02:09 Hypochromasia Few 08/08/18 02:09 Poikilocytosis Not Reportable 08/08/18 02:09 Anisocytosis 1+ 08/08/18 02:09 Microcytosis Not Reportable 08/08/18 02:09 Macrocytosis Not Reportable 08/08/18 02:09 Spherocytes Not Reportable 08/08/18 02:09 Pappenheimer Bodies Not Reportable 08/08/18 02:09 Sickle Cells Not Reportable 08/08/18 02:09 Target Cells Not Reportable 08/08/18 02:09 Tear Drop Cells Not Reportable 08/08/18 02:09 Ovalocytes Not Reportable 08/08/18 02:09 Stomatocytes Few 08/08/18 02:09 Helmet Cells Not Reportable 08/08/18 02:09 Lr-[place] Bodies Not Reportable 08/08/18 02:09 Jber Rings Not Reportable 08/08/18 02:09 [place] Cells Not Reportable 08/08/18 02:09 Bite Cells Not Reportable 08/08/18 02:09 Crenated Cell Not Reportable 08/08/18 02:09 Elliptocytes Not Reportable 08/08/18 02:09 Acanthocytes (Spur) Not Reportable 08/08/18 02:09 Rouleaux Not Reportable 08/08/18 02:09 Hemoglobin C Crystals Not Reportable 08/08/18 02:09 Schistocytes Not Reportable 08/08/18 02:09 Malaria parasites Not Reportable 08/08/18 02:09 Jigar Bodies Not Reportable 08/08/18 02:09 Hem Pathologist Commnt No 08/08/18 02:09 PT 13.4 Sec. (12.2-14.9) 08/07/18 15:08 INR 0.98 (0.87-1.13) 08/07/18 15:08 APTT 23.2 Sec. (24.2-36.6) L 08/07/18 15:08 D-Dimer 798.17 ng/mlDDU (0-234) H 07/27/18 15:52 Heparin Anti-Xa Level 1.18 U.I./ml (0.3-0.7) H 08/12/18 14:56 POC ABG pH 7.453 (7.35-7.45) H 08/13/18 09:28 POC ABG pCO2 47.5 (35-45) H 08/13/18 09:28 POC ABG pO2 84 (80-105) 08/13/18 09:28 POC ABG HCO3 33.3 08/13/18 09:28 POC ABG Total CO2 35 08/13/18 09:28 POC ABG O2 Sat 97 08/13/18 09:28 POC ABG Base Excess 9 08/13/18 09:28 FiO2 45 % 08/13/18 09:28 Sodium 140 mmol/L (137-145) 08/14/18 05:22 Potassium 3.7 mmol/L (3.6-5.0) 08/14/18 05:22 Chloride 99.3 mmol/L (98-107) 08/14/18 05:22 Carbon Dioxide 30 mmol/L (22-30) 08/14/18 05:22 Anion Gap 14 mmol/L 08/14/18 05:22 BUN 11 mg/dL (9-20) 08/14/18 05:22 Creatinine 0.5 mg/dL (0.8-1.5) L 08/14/18 05:22 Estimated GFR > 60 ml/min 08/14/18 05:22 BUN/Creatinine Ratio 22 % 08/14/18 05:22 Glucose 125 mg/dL (75-100) H 08/14/18 05:22 POC Glucose 107 (70-105) H 08/14/18 09:59 Lactic Acid 1.30 mmol/L (0.7-2.0) 08/03/18 16:48 Calcium 8.7 mg/dL (8.4-10.2) 08/14/18 05:22 Phosphorus 2.80 mg/dL (2.5-4.5) 08/06/18 05:17 Magnesium 2.30 mg/dL (1.7-2.3) 08/06/18 05:17 Total Bilirubin 1.30 mg/dL (0.1-1.2) H 07/27/18 12:59 AST 15 units/L (5-40) 07/27/18 12:59 ALT 16 units/L (7-56) 07/27/18 12:59 Alkaline Phosphatase 62 units/L (35-129) 07/27/18 12:59 Troponin T < 0.010 ng/mL (0.00-0.029) 07/27/18 12:59 C-Reactive Protein 2.30 mg/dL (0.00-1.30) H 08/03/18 16:48 NT-Pro-B Natriuret Pep 3913 pg/mL (0-900) H 07/27/18 12:59 Total Protein 6.2 g/dL (6.3-8.2) L 07/27/18 12:59 Albumin 3.6 g/dL (3.9-5) L 07/27/18 12:59 Albumin/Globulin Ratio 1.4 % 07/27/18 12:59 Triglycerides 64 mg/dL (2-149) 08/08/18 14:02 TSH 1.180 mlU/mL (0.270-4.200) 07/27/18 15:52 Free T4 1.28 ng/dL (0.76-1.46) 07/27/18 15:52 Urine Color Yellow (Yellow) 08/11/18 12:50 Urine Turbidity Clear (Clear) 08/11/18 12:50 Urine pH 6.0 (5.0-7.0) 08/11/18 12:50 Ur Specific [place] 1.015 (1.003-1.030) 08/11/18 12:50 Urine Protein <15 mg/dl mg/dL (Negative) 08/11/18 12:50 Urine Glucose (UA) 50 mg/dL (Negative) 08/11/18 12:50 Urine Ketones Neg mg/dL (Negative) 08/11/18 12:50 Urine Blood Neg (Negative) 08/11/18 12:50 Urine Nitrite Neg (Negative) 08/11/18 12:50 Urine Bilirubin Neg (Negative) 08/11/18 12:50 Urine Urobilinogen 4.0 mg/dL (<2.0) 08/11/18 12:50 Ur Leukocyte Esterase Neg (Negative) 08/11/18 12:50 Urine WBC (Auto) 2.0 /HPF (0.0-6.0) 08/11/18 12:50 Urine RBC (Auto) 2.0 /HPF (0.0-6.0) 08/11/18 12:50 U Epithel Cells (Auto) 2.0 /HPF (0-13.0) 07/29/18 09:24 Urine Bacteria (Auto) 1+ /HPF (Negative) 08/11/18 12:50 Urine Mucus Few /HPF 08/11/18 12:50 Urine Yeast (Budding) 1+ /HPF 07/29/18 09:24 Urine Creatinine 72.3 mg/dL (0.1-20.0) H 07/29/18 09:24 Urine Sodium 12 mmol/L 07/29/18 09:24 Random Vancomycin 9.2 ug/mL (0-40.0) 07/29/18 04:21 Nutrition/Malnutrition Assess - Dietary Evaluation Nutrition/Malnutrition Findings: Nutrition Notes Start: 07/28/18 10:54 Freq: Status: Active Protocol: Document 08/10/18 15:05 OL (Rec: 08/10/18 15:09 OL [id number]) Nutrition Notes Initial or Follow up Reassessment Current Diagnoses Acute Kidney Injury COPD Sepsis Hypertension Heart Failure Respiratory Failure Other Pertinent Diagnosis Hx of Skin Cancer Current Diet Nepro at 50ml/hr Labs/Tests BUN 26 Cr 0.5 Medications propofol at 5.062mL/hr (113.64 lipid kcal ) Height 5 ft 8 in Weight 84.1 kg [place] Body Weight (lbs) 154.0 BMI 28.1 Subjective/Other Information Nepro on hold at time of visit 2/2 pt. having PEG placed. TF to restart later this afternoon. Per RN, pt. had been tolerating TF well at goal rate prior to PEG placement. Burn Absent Trauma Absent #1 Nutrition Diagnoses Inadequate oral intake Diagnosis Progress(for reassessment Continues documentation) Is patient on ventilator? Yes Is Patient Ambulatory and/or Out of Bed No REE-(Dighton-St. Jeor-confined to bed) 4802.665 Calculation Used for Recommendations Dighton-St Jeor Additional Notes protein (1.2-2g/kg): 101-168g fluid: 1mL/kcal Nutrition Intervention Change Diet Order: Continue TF Nutrition Support: Nepro at 50mL/hr 250 mL free water flush q4h or per MD. Kcal 2,160 Protein (gm) 97 Fluid (mL) 872 Goal #1 TF tolerance and rate Goal #2 Meet at least 80% of kcal needs and 80-100% of protein needs. Follow-Up By: 08/16/18 Additional Comments Peg and Trach done. Patient remain in stable condition
--- NOTE | 2018-08-14 12:49 | Progress Note ---
Assessment and Plan 1. Acute kidney injury: Likely Vasomotor / hemodynamic CARLEE in the setting of A.fib with RVR. Renal function has improved and stable. 2. FEN: Hypernatremia, improved. Continue water flushes. Replete K. Monitor. 3. A.fib: On Amiodarone and Cardizem. 4. Respiratory failure: On vent. 5. Hematuria: S/p Cysto. Subjective Date of service: 08/14/18 Principal diagnosis: Acute hypoxemic respiratory failure; A-fib with RVR; P ossible CHF; H/O DVT Interval history: Patient was seen and examined at the bedside. Objective - Vital Signs Vital signs: Vital Signs - 12hr 08/14/18 08/14/18 08/14/18 01:00 01:16 01:30 Temperature Pulse Rate 84 82 82 Pulse Rate [ Bilateral] Respiratory 26 H 25 H 27 H Rate Respiratory Rate [Bilateral ] Blood Pressure 123/59 123/59 123/59 O2 Sat by Pulse 98 98 98 Oximetry O2 Sat by Pulse Oximetry [ Assessment] 08/14/18 08/14/18 08/14/18 01:46 02:00 02:16 Temperature Pulse Rate 81 82 86 Pulse Rate [ Bilateral] Respiratory 26 H 25 H 21 Rate Respiratory Rate [Bilateral ] Blood Pressure 123/59 132/61 132/61 O2 Sat by Pulse 98 96 97 Oximetry O2 Sat by Pulse Oximetry [ Assessment] 08/14/18 08/14/18 08/14/18 02:30 02:46 03:00 Temperature Pulse Rate 80 91 H 96 H Pulse Rate [ Bilateral] Respiratory 28 H 30 H 19 Rate Respiratory Rate [Bilateral ] Blood Pressure 132/61 132/61 132/61 O2 Sat by Pulse 96 94 94 Oximetry O2 Sat by Pulse Oximetry [ Assessment] 08/14/18 08/14/18 08/14/18 03:16 03:30 03:46 Temperature Pulse Rate 90 86 96 H Pulse Rate [ Bilateral] Respiratory 18 27 H 16 Rate Respiratory Rate [Bilateral ] Blood Pressure 141/74 141/74 141/74 O2 Sat by Pulse 96 95 97 Oximetry O2 Sat by Pulse Oximetry [ Assessment] 08/14/18 08/14/18 08/14/18 03:54 04:00 04:16 Temperature 99.4 F Pulse Rate 88 93 H 84 Pulse Rate [ Bilateral] Respiratory 24 26 H Rate Respiratory Rate [Bilateral ] Blood Pressure 141/74 141/74 112/56 O2 Sat by Pulse 95 99 96 Oximetry O2 Sat by Pulse Oximetry [ Assessment] 08/14/18 08/14/18 08/14/18 04:20 04:30 04:46 Temperature Pulse Rate 86 84 85 Pulse Rate [ Bilateral] Respiratory 22 24 Rate Respiratory Rate [Bilateral ] Blood Pressure 145/70 145/70 145/70 O2 Sat by Pulse 97 97 Oximetry O2 Sat by Pulse Oximetry [ Assessment] 08/14/18 08/14/18 08/14/18 05:00 05:16 05:30 Temperature Pulse Rate 85 95 H 97 H Pulse Rate [ Bilateral] Respiratory 24 28 H 34 H Rate Respiratory Rate [Bilateral ] Blood Pressure 145/71 145/71 145/71 O2 Sat by Pulse 96 95 93 Oximetry O2 Sat by Pulse Oximetry [ Assessment] 08/14/18 08/14/18 08/14/18 05:46 06:00 06:16 Temperature Pulse Rate 101 H 95 H 87 Pulse Rate [ Bilateral] Respiratory 24 31 H 25 H Rate Respiratory Rate [Bilateral ] Blood Pressure 145/71 145/71 O2 Sat by Pulse 91 Oximetry O2 Sat by Pulse Oximetry [ Assessment] 08/14/18 08/14/18 08/14/18 06:30 06:46 07:00 Temperature Pulse Rate 98 H 101 H 101 H Pulse Rate [ Bilateral] Respiratory 22 14 22 Rate Respiratory Rate [Bilateral ] Blood Pressure 128/81 128/81 128/81 O2 Sat by Pulse Oximetry O2 Sat by Pulse Oximetry [ Assessment] 08/14/18 08/14/18 08/14/18 07:16 07:30 07:46 Temperature Pulse Rate 96 H 89 86 Pulse Rate [ Bilateral] Respiratory 28 H 27 H 30 H Rate Respiratory Rate [Bilateral ] Blood Pressure 114/75 114/75 114/75 O2 Sat by Pulse 91 95 94 Oximetry O2 Sat by Pulse Oximetry [ Assessment] 08/14/18 08/14/18 08/14/18 08:00 08:16 08:30 Temperature 99.3 F Pulse Rate 91 H 84 83 Pulse Rate [ Bilateral] Respiratory 21 22 24 Rate Respiratory Rate [Bilateral ] Blood Pressure 114/75 130/90 130/90 O2 Sat by Pulse 96 96 97 Oximetry O2 Sat by Pulse Oximetry [ Assessment] 08/14/18 08/14/18 08/14/18 08:46 08:58 08:59 Temperature Pulse Rate 89 90 Pulse Rate [ Bilateral] Respiratory 25 H Rate Respiratory Rate [Bilateral ] Blood Pressure 130/90 153/71 O2 Sat by Pulse 96 96 Oximetry O2 Sat by Pulse 96 Oximetry [ Assessment] 08/14/18 08/14/18 08/14/18 09:00 09:03 09:07 Temperature Pulse Rate 92 H 85 Pulse Rate [ 86 Bilateral] Respiratory 21 16 Rate Respiratory 12 Rate [Bilateral ] Blood Pressure 130/90 153/71 O2 Sat by Pulse 96 96 Oximetry O2 Sat by Pulse Oximetry [ Assessment] 08/14/18 08/14/18 08/14/18 09:16 09:29 09:30 Temperature Pulse Rate 84 80 Pulse Rate [ 80 Bilateral] Respiratory 10 L 10 L Rate Respiratory 12 Rate [Bilateral ] Blood Pressure 153/71 153/71 O2 Sat by Pulse 97 98 Oximetry O2 Sat by Pulse Oximetry [ Assessment] 08/14/18 08/14/18 08/14/18 10:00 10:07 11:00 Temperature Pulse Rate 82 82 86 Pulse Rate [ Bilateral] Respiratory 11 L 12 Rate Respiratory Rate [Bilateral ] Blood Pressure 130/66 130/66 153/71 O2 Sat by Pulse 96 97 Oximetry O2 Sat by Pulse Oximetry [ Assessment] 08/14/18 08/14/18 11:23 12:00 Temperature 99.3 F Pulse Rate 77 Pulse Rate [ Bilateral] Respiratory 13 Rate Respiratory Rate [Bilateral ] Blood Pressure 110/62 O2 Sat by Pulse 97 Oximetry O2 Sat by Pulse Oximetry [ Assessment] - General Appearance General appearance: well-developed, appears stated age, other (not in distress) EENT: ATNC, PERRL, hearing intact Neck: other (Trached) Respiratory: Present: Clear to Ascultation Cardiology: S1S2 Gastrointestinal: normoactive bowel sounds, no tenderness, no distended, other (PEG tube noted) Integumentary: no rash Neurologic: other (able to move extremities) Musculoskeletal: other (no edema) - Lab 08/13/18 05:20 08/14/18 05:22 Most recent lab results Calcium 8.7 mg/dL (8.4-10.2) 08/14/18 05:22 Phosphorus 2.80 mg/dL (2.5-4.5) 08/06/18 05:17 Magnesium 2.30 mg/dL (1.7-2.3) 08/06/18 05:17 Urine Creatinine 72.3 mg/dL (0.1-20.0) H 07/29/18 09:24 Urine Sodium 12 mmol/L 07/29/18 09:24 Medications & Allergies - Medications Allergies/Adverse Reactions: Allergies No Known Allergies Allergy (Verified 12/12/13 06:46) Home Medications: Home Medications Medication Instructions Recorded Confirmed Last Taken Type Pravastatin Sodium 40 mg PO DAILY 12/12/13 07/27/18 07/27/18 History Clopidogrel [Plavix] 75 mg PO DAILY #30 tablet 04/03/15 07/27/18 07/27/18 Rx amLODIPine [Norvasc] 10 mg PO DAILY #30 tablet 04/03/15 07/27/18 07/27/18 Rx Fluticasone/Salmeterol [Advair 1 puff IH BID 12/31/15 07/27/18 07/27/18 History Diskus 250-50 mcg] ALBUTEROL Inhaler (OR & NICU) 2 puff IH QID PRN 07/27/18 07/27/18 Unknown History [Proair] Aspirin [Aspirin BABY CHEW TAB] 81 mg PO DAILY 07/27/18 07/27/18 07/27/18 History Cyanocobalamin (Vitamin B-12) 2,500 mcg PO DAILY 07/27/18 07/27/18 07/27/18 History [Vitamin B12] [place]-3S/Dha/Epa/Fish Oil/D3 [Fish 1 each PO DAILY 07/27/18 07/27/18 07/27/18 History Lya-Cdvap-4-Vit D Softgel] Active Medications: Generic Name Dose Route Start Last Admin Trade Name Freq PRN Reason Stop Dose Admin Acetaminophen 650 mg 08/11/18 12:07 08/12/18 16:52 Tylenol FEEDTUBE 650 mg Q6H PRN Administration Temp > or = 100.4 Amiodarone HCl 200 mg 07/29/18 14:00 08/14/18 10:08 Cordarone PO 200 mg BID IGNACIO Administration Lipase/Protease/Amylase 1 each 08/12/18 14:11 Pancreana Mccarthy 10,500 Unit FEEDTUBE PRN PRN For Clogged Feeding Tube Apixaban 5 mg 08/12/18 14:00 08/14/18 10:08 Eliquis PO 5 mg Q12HR IGNACIO Administration Protocol Arformoterol Tartrate 15 mcg 07/27/18 20:00 08/14/18 09:07 Brovana Nebu IH 15 mcg Q12HRT IGNACIO Administration Budesonide 0.5 mg 07/27/18 20:00 08/14/18 09:07 Pulmicort IH 0.5 mg Q12HRT IGNACIO Administration Cyanocobalamin 2,500 mcg 07/28/18 10:00 08/14/18 10:07 Vitamin B-12 PO 2,500 mcg QDAY IGNACIO Administration Dextrose 50 ml 08/10/18 05:31 08/10/18 05:23 D50w (25gm) Syringe IV 50 ml PRN PRN Administration Hypoglycemia Diltiazem HCl 60 mg 08/05/18 12:00 08/14/18 10:07 Cardizem PO 60 mg Q4H IGNACIO Administration Famotidine 20 mg 08/01/18 10:00 08/14/18 10:07 Pepcid PO 20 mg BID IGNACIO Administration Fentanyl 50 mcg 08/12/18 13:01 08/13/18 18:15 Sublimaze IV 50 mcg Q2H PRN Administration Pain , Severe (7-10) Haloperidol Lactate 5 mg 08/13/18 17:55 Haldol IV 08/16/18 17:54 Q6H PRN Agitation Hydrophilic Ointment 1 applic 07/27/18 20:09 08/13/18 04:25 Vaseline Lip Therapy TP 1 applic Q2HR PRN Administration Dry Lips Fentanyl Citrate 2,000 mcg in 100 mls @ 2.285 mls/hr 08/01/18 14:00 08/12/18 10:50 Fentanyl Drip Premix IV Infused TITR IGNACIO Titration Protocol 0.5 MCG/KG/HR Heparin Sodium/Sodium Chloride 25,000 unit in 500 mls @ 26 mls/hr 08/07/18 15:00 08/12/18 14:12 Heparin/ 0.45% Nacl-25,000 Unit/500 Ml IV 0 units/hr TITR IGNACIO 0 mls/hr Titration Protocol 1,300 UNITS/HR Insulin Glargine 20 units 08/05/18 22:00 08/13/18 22:02 Lantus SUB-Q 20 units QHS IGNACIO Administration Insulin Human Lispro 0 unit 07/29/18 07:00 08/14/18 06:49 Humalog SUB-Q Not Given Q4HR [facility] Protocol Multi-Ingred Cream/Lotion/Oil/Oint 1 applic 07/27/18 20:09 Artificial Tears Ophth Oint OU Q4HR PRN Dry Eye(s) Pravastatin Sodium 40 mg 07/28/18 10:00 08/14/18 10:08 Pravachol PO 40 mg DAILY IGNACIO Administration Quetiapine Fumarate 200 mg 08/13/18 22:00 08/14/18 10:07 Seroquel PO 200 mg BID IGNACIO Administration Quetiapine Fumarate 100 mg 08/13/18 22:00 08/13/18 22:01 Seroquel PO 100 mg QHS IGNACIO Administration Simple Syrup 15 ml 08/12/18 14:11 Simple Syrup FEEDTUBE PRN PRN Hypoglycemia Simple Syrup 30 ml 08/12/18 14:11 Simple Syrup FEEDTUBE PRN PRN Hypoglycemia Sodium Bicarbonate 325 mg 08/12/18 14:11 Sodium Bicarbonate FEEDTUBE PRN PRN For Clogged Feeding Tube Sodium Chloride 10 ml 07/27/18 22:00 08/14/18 00:28 Sodium Chloride Flush Syringe 10 Ml IV 10 ml BID IGNACIO Administration Sodium Chloride 10 ml 07/27/18 15:59 Sodium Chloride Flush Syringe 10 Ml IV PRN PRN LINE FLUSH
[2018-08-14] MEDS ORDERED: POTASSIUM CHLORIDE FEEDTUBE ONE ×3 (13:00→23:00)
--- NOTE | 2018-08-14 15:12 | Progress Note ---
Assessment and Plan Acute hypoxemic respiratory failure, on mechanical ventilatory support. s/p trachesotomy Atrial fibrillation with rapid ventricular response, now sinus. 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 Elevated D-dimer. Leukocytosis Hematuria, resolved. Sepsis Chronic obstructive lung disease-acute exacerbation. Hypertension. Peripheral vascular disease. Mixed acidosis, respiratory and metabolic. Acute kidney injury. Lactic acidosis. Elevated BNP level of 3913. - Daily SAT and SBT as tolerated -Trach care, airway clearance, secretion managmenet - VAP bundle addressed - titrate sedation for RASS 0 to -1 -Avoid delirium - continue enteric nutrition as tolerated - continue supplemental oxygen to keep sats > 90% - aspiration precautions - continue bronchodilators with pulmonary hygiene per RT -Therapeutic anticoagulation, resume heparin infusion and monitor for bleeding -Stress ulcer prophylaxis -Antibiotics to complete course -Mobility for pressure ulcer prevention Evaluation for LTACH for weaning and low level rehab Updated girlfriend at the bedside FULL CODE CONDITION: CRITICAL PROGNOSIS: GUARDED The high probability of a clinically significant, sudden or life-threatening deterioration of the [respiratory, cardiovascular, renal] system(s) required my full and direct attention, intervention and personal management. The aggregate critical care time was [31] minutes without overlap. Time includes spent on; [x] Data Review and interpretation [x] Patient assessment and monitoring of vital signs [x] Documentation [x] Medication orders and management Subjective Date of service: 08/14/18 Principal diagnosis: Acute hypoxemic respiratory failure; A-fib with RVR; Possible CHF; H/O DVT Interval history: Patient is seen today for: Acute hypoxemic respiratory failure on MVS; Atrial fibrillation with RVR; Possible congestive heart failure with an acute exacerbation; History of deep venous thrombosis; Elevated D-dimer. Seen and examined at bedside; 24hour events reviewed; vitals, labs, medications, chart notes reviewed; nursing and respiratory care staff consulted; no adverse overnight events reported to me; remains on MVS;currently in sinus rhythm; no emesis or overt aspiration and tolerating tube feeds; hematuria s/p zuniga placement in OR by urology. s/p trachesotomy and PEG placement Girlfriend at the bedside Objective Vital Signs - 12hr 08/14/18 08/14/18 08/14/18 03:16 03:30 03:46 Temperature Pulse Rate 90 86 96 H Pulse Rate [ Bilateral] Respiratory 18 27 H 16 Rate Respiratory Rate [Bilateral ] Blood Pressure 141/74 141/74 141/74 O2 Sat by Pulse 96 95 97 Oximetry O2 Sat by Pulse Oximetry [ Assessment] 08/14/18 08/14/18 08/14/18 03:54 04:00 04:16 Temperature 99.4 F Pulse Rate 88 93 H 84 Pulse Rate [ Bilateral] Respiratory 24 26 H Rate Respiratory Rate [Bilateral ] Blood Pressure 141/74 141/74 112/56 O2 Sat by Pulse 95 99 96 Oximetry O2 Sat by Pulse Oximetry [ Assessment] 08/14/18 08/14/18 08/14/18 04:20 04:30 04:46 Temperature Pulse Rate 86 84 85 Pulse Rate [ Bilateral] Respiratory 22 24 Rate Respiratory Rate [Bilateral ] Blood Pressure 145/70 145/70 145/70 O2 Sat by Pulse 97 97 Oximetry O2 Sat by Pulse Oximetry [ Assessment] 08/14/18 08/14/18 08/14/18 05:00 05:16 05:30 Temperature Pulse Rate 85 95 H 97 H Pulse Rate [ Bilateral] Respiratory 24 28 H 34 H Rate Respiratory Rate [Bilateral ] Blood Pressure 145/71 145/71 145/71 O2 Sat by Pulse 96 95 93 Oximetry O2 Sat by Pulse Oximetry [ Assessment] 08/14/18 08/14/18 08/14/18 05:46 06:00 06:16 Temperature Pulse Rate 101 H 95 H 87 Pulse Rate [ Bilateral] Respiratory 24 31 H 25 H Rate Respiratory Rate [Bilateral ] Blood Pressure 145/71 145/71 O2 Sat by Pulse 91 Oximetry O2 Sat by Pulse Oximetry [ Assessment] 08/14/18 08/14/18 08/14/18 06:30 06:46 07:00 Temperature Pulse Rate 98 H 101 H 101 H Pulse Rate [ Bilateral] Respiratory 22 14 22 Rate Respiratory Rate [Bilateral ] Blood Pressure 128/81 128/81 128/81 O2 Sat by Pulse Oximetry O2 Sat by Pulse Oximetry [ Assessment] 08/14/18 08/14/18 08/14/18 07:16 07:30 07:46 Temperature Pulse Rate 96 H 89 86 Pulse Rate [ Bilateral] Respiratory 28 H 27 H 30 H Rate Respiratory Rate [Bilateral ] Blood Pressure 114/75 114/75 114/75 O2 Sat by Pulse 91 95 94 Oximetry O2 Sat by Pulse Oximetry [ Assessment] 08/14/18 08/14/18 08/14/18 08:00 08:16 08:30 Temperature 99.3 F Pulse Rate 91 H 84 83 Pulse Rate [ Bilateral] Respiratory 21 22 24 Rate Respiratory Rate [Bilateral ] Blood Pressure 114/75 130/90 130/90 O2 Sat by Pulse 96 96 97 Oximetry O2 Sat by Pulse Oximetry [ Assessment] 08/14/18 08/14/18 08/14/18 08:46 08:58 08:59 Temperature Pulse Rate 89 90 Pulse Rate [ Bilateral] Respiratory 25 H Rate Respiratory Rate [Bilateral ] Blood Pressure 130/90 153/71 O2 Sat by Pulse 96 96 Oximetry O2 Sat by Pulse 96 Oximetry [ Assessment] 08/14/18 08/14/18 08/14/18 09:00 09:03 09:07 Temperature Pulse Rate 92 H 85 Pulse Rate [ 86 Bilateral] Respiratory 21 16 Rate Respiratory 12 Rate [Bilateral ] Blood Pressure 130/90 153/71 O2 Sat by Pulse 96 96 Oximetry O2 Sat by Pulse Oximetry [ Assessment] 08/14/18 08/14/18 08/14/18 09:16 09:29 09:30 Temperature Pulse Rate 84 80 Pulse Rate [ 80 Bilateral] Respiratory 10 L 10 L Rate Respiratory 12 Rate [Bilateral ] Blood Pressure 153/71 153/71 O2 Sat by Pulse 97 98 Oximetry O2 Sat by Pulse Oximetry [ Assessment] 08/14/18 08/14/18 08/14/18 10:00 10:07 11:00 Temperature Pulse Rate 82 82 86 Pulse Rate [ Bilateral] Respiratory 11 L 12 Rate Respiratory Rate [Bilateral ] Blood Pressure 130/66 130/66 153/71 O2 Sat by Pulse 96 97 Oximetry O2 Sat by Pulse Oximetry [ Assessment] 08/14/18 08/14/18 08/14/18 11:23 12:00 13:00 Temperature 99.3 F Pulse Rate 77 78 75 Pulse Rate [ Bilateral] Respiratory 13 15 13 Rate Respiratory Rate [Bilateral ] Blood Pressure 110/62 99/60 99/60 O2 Sat by Pulse 97 94 97 Oximetry O2 Sat by Pulse Oximetry [ Assessment] 08/14/18 08/14/18 14:00 15:00 Temperature Pulse Rate 78 84 Pulse Rate [ Bilateral] Respiratory 13 11 L Rate Respiratory Rate [Bilateral ] Blood Pressure 99/60 133/55 O2 Sat by Pulse 98 97 Oximetry O2 Sat by Pulse Oximetry [ Assessment] Constitutional: appears uncomfortable, other (elderly looking CM, normocephalic and atraumatic with normal respiratory effort) Eyes: non-icteric ENT: oropharynx moist, other (s/p trachesotomy to MVS) Neck: supple, no lymphadenopathy, no JVD, other (No thyromegaly) Effort: mildly labored Ascultation: Bilateral: diminished breath sounds, rhonchi Percussion: Bilateral: not dull Cardiovascular: irregular rhythm, other (+ systolic murmur) Gastrointestinal: hypoactive bowel sounds, soft, non-tender, non-distended, other (No palpable HSM, PEG in place) Integumentary: rash, other (upper extremity edema) Extremities: no cyanosis, pink and warm, pulses normal, no ischemia or petechiae Neurologic: non-focal exam (grossly), pupils equal and round, other (moves all extemities) Psychiatric: other CBC and BMP: 08/15/18 11:45 08/14/18 05:22 ABG, PT/INR, D-dimer: ABG POC ABG pH 7.453 (7.35-7.45) H 08/13/18 09:28 POC ABG pCO2 47.5 (35-45) H 08/13/18 09:28 POC ABG pO2 84 (80-105) 08/13/18 09:28 POC ABG HCO3 33.3 08/13/18 09:28 POC ABG Total CO2 35 08/13/18 09:28 POC ABG O2 Sat 97 08/13/18 09:28 PT/INR, D-dimer PT 13.4 Sec. (12.2-14.9) 08/07/18 15:08 INR 0.98 (0.87-1.13) 08/07/18 15:08 D-Dimer 798.17 ng/mlDDU (0-234) H 07/27/18 15:52 Abnormal lab findings: Abnormal Labs 07/27/18 07/27/18 07/27/18 12:59 12:59 12:59 WBC 15.8 H RBC Hgb Hct MCV 104 H MCH 34 H MCHC RDW 16.3 H Lymph % (Auto) [place] % (Auto) Lymph # [place] # Seg Neutrophils % Seg Neuts % (Manual) 88.0 H Lymphocytes % (Manual) 3.0 L Monocytes % (Manual) Nucleated RBC % Seg Neutrophils # Seg Neutrophils # Man 13.9 H Lymphocytes # (Manual) 0.5 L Monocytes # (Manual) PT 17.0 H INR 1.34 H APTT D-Dimer Heparin Anti-Xa Level POC ABG pH POC ABG pCO2 POC ABG pO2 Sodium Potassium Chloride Carbon Dioxide 21 L BUN 38 H Creatinine 1.6 H Glucose POC Glucose Lactic Acid Calcium Phosphorus Total Bilirubin 1.30 H C-Reactive Protein NT-Pro-B Natriuret Pep 3913 H Total Protein 6.2 L Albumin 3.6 L Urine WBC (Auto) Urine Creatinine 07/27/18 07/27/18 07/27/18 15:52 16:12 17:09 WBC RBC Hgb Hct MCV MCH MCHC RDW Lymph % (Auto) [place] % (Auto) Lymph # [place] # Seg Neutrophils % Seg Neuts % (Manual) Lymphocytes % (Manual) Monocytes % (Manual) Nucleated RBC % Seg Neutrophils # Seg Neutrophils # Man Lymphocytes # (Manual) Monocytes # (Manual) PT 16.0 H INR 1.24 H APTT D-Dimer 798.17 H Heparin Anti-Xa Level POC ABG pH POC ABG pCO2 POC ABG pO2 Sodium Potassium Chloride Carbon Dioxide BUN Creatinine Glucose POC Glucose Lactic Acid 5.00 H* Calcium Phosphorus Total Bilirubin C-Reactive Protein NT-Pro-B Natriuret Pep Total Protein Albumin Urine WBC (Auto) Urine Creatinine 07/27/18 07/27/18 07/27/18 17:59 18:07 21:31 WBC RBC Hgb Hct MCV MCH MCHC RDW Lymph % (Auto) [place] % (Auto) Lymph # [place] # Seg Neutrophils % Seg Neuts % (Manual) Lymphocytes % (Manual) Monocytes % (Manual) Nucleated RBC % Seg Neutrophils # Seg Neutrophils # Man Lymphocytes # (Manual) Monocytes # (Manual) PT INR APTT D-Dimer Heparin Anti-Xa Level POC ABG pH 7.344 L POC ABG pCO2 POC ABG pO2 36 L Sodium Potassium Chloride Carbon Dioxide BUN Creatinine Glucose POC Glucose Lactic Acid 5.20 H* 5.00 H* Calcium Phosphorus Total Bilirubin C-Reactive Protein NT-Pro-B Natriuret Pep Total Protein Albumin Urine WBC (Auto) Urine Creatinine 07/27/18 07/27/18 07/27/18 21:57 22:42 23:26 WBC RBC Hgb Hct MCV MCH MCHC RDW Lymph % (Auto) [place] % (Auto) Lymph # [place] # Seg Neutrophils % Seg Neuts % (Manual) Lymphocytes % (Manual) Monocytes % (Manual) Nucleated RBC % Seg Neutrophils # Seg Neutrophils # Man Lymphocytes # (Manual) Monocytes # (Manual) PT INR APTT D-Dimer Heparin Anti-Xa Level POC ABG pH 7.199 L POC ABG pCO2 62.0 H POC ABG pO2 Sodium Potassium Chloride Carbon Dioxide BUN Creatinine Glucose POC Glucose Lactic Acid 4.70 H* 5.00 H* Calcium Phosphorus Total Bilirubin C-Reactive Protein NT-Pro-B Natriuret Pep Total Protein Albumin Urine WBC (Auto) Urine Creatinine 07/28/18 07/28/18 07/28/18 00:45 05:40 05:58 WBC RBC Hgb Hct MCV MCH MCHC RDW Lymph % (Auto) [place] % (Auto) Lymph # [place] # Seg Neutrophils % Seg Neuts % (Manual) Lymphocytes % (Manual) Monocytes % (Manual) Nucleated RBC % Seg Neutrophils # Seg Neutrophils # Man Lymphocytes # (Manual) Monocytes # (Manual) PT INR APTT D-Dimer Heparin Anti-Xa Level 0.11 L POC ABG pH 7.186 L POC ABG pCO2 60.1 H POC ABG pO2 68 L Sodium Potassium Chloride Carbon Dioxide BUN Creatinine Glucose POC Glucose Lactic Acid 4.70 H* Calcium Phosphorus Total Bilirubin C-Reactive Protein NT-Pro-B Natriuret Pep Total Protein Albumin Urine WBC (Auto) Urine Creatinine 07/28/18 07/28/18 07/28/18 06:01 06:01 07:19 WBC 12.5 H RBC 3.51 L Hgb 11.5 L Hct MCV 104 H MCH 33 H MCHC RDW 16.6 H Lymph % (Auto) [place] % (Auto) Lymph # [place] # Seg Neutrophils % Seg Neuts % (Manual) Lymphocytes % (Manual) Monocytes % (Manual) Nucleated RBC % Seg Neutrophils # Seg Neutrophils # Man Lymphocytes # (Manual) Monocytes # (Manual) PT INR APTT D-Dimer Heparin Anti-Xa Level 0.14 L POC ABG pH POC ABG pCO2 POC ABG pO2 Sodium 135 L Potassium 5.1 H Chloride 95.0 L Carbon Dioxide 21 L BUN 54 H Creatinine 2.6 H D Glucose POC Glucose Lactic Acid Calcium Phosphorus Total Bilirubin C-Reactive Protein NT-Pro-B Natriuret Pep Total Protein Albumin Urine WBC (Auto) Urine Creatinine 07/28/18 07/28/18 07/28/18 07:19 09:20 11:06 WBC RBC Hgb Hct MCV MCH MCHC RDW Lymph % (Auto) [place] % (Auto) Lymph # [place] # Seg Neutrophils % Seg Neuts % (Manual) Lymphocytes % (Manual) Monocytes % (Manual) Nucleated RBC % Seg Neutrophils # Seg Neutrophils # Man Lymphocytes # (Manual) Monocytes # (Manual) PT INR APTT D-Dimer Heparin Anti-Xa Level POC ABG pH 7.266 L POC ABG pCO2 49.7 H POC ABG pO2 74 L Sodium Potassium Chloride Carbon Dioxide BUN Creatinine Glucose POC Glucose Lactic Acid 4.00 H* 3.90 H* Calcium Phosphorus Total Bilirubin C-Reactive Protein NT-Pro-B Natriuret Pep Total Protein Albumin Urine WBC (Auto) Urine Creatinine 07/28/18 07/28/18 07/28/18 15:06 20:45 23:36 WBC RBC Hgb Hct MCV MCH MCHC RDW Lymph % (Auto) [place] % (Auto) Lymph # [place] # Seg Neutrophils % Seg Neuts % (Manual) Lymphocytes % (Manual) Monocytes % (Manual) Nucleated RBC % Seg Neutrophils # Seg Neutrophils # Man Lymphocytes # (Manual) Monocytes # (Manual) PT INR APTT D-Dimer Heparin Anti-Xa Level 0.15 L POC ABG pH POC ABG pCO2 POC ABG pO2 Sodium 134 L Potassium 5.2 H Chloride Carbon Dioxide BUN 58 H Creatinine 2.1 H Glucose 110 H POC Glucose 125 H Lactic Acid Calcium Phosphorus Total Bilirubin C-Reactive Protein NT-Pro-B Natriuret Pep Total Protein Albumin Urine WBC (Auto) Urine Creatinine 07/29/18 07/29/18 07/29/18 01:12 04:21 04:21 WBC RBC 3.21 L Hgb 10.8 L Hct 33.0 L MCV 103 H MCH 34 H MCHC RDW 16.4 H Lymph % (Auto) [place] % (Auto) Lymph # [place] # Seg Neutrophils % Seg Neuts % (Manual) Lymphocytes % (Manual) 11.0 L Monocytes % (Manual) Nucleated RBC % Seg Neutrophils # Seg Neutrophils # Man Lymphocytes # (Manual) 1.0 L Monocytes # (Manual) PT INR APTT D-Dimer Heparin Anti-Xa Level 0.21 L POC ABG pH POC ABG pCO2 POC ABG pO2 Sodium Potassium Chloride Carbon Dioxide BUN 48 H Creatinine 1.6 H Glucose 166 H POC Glucose Lactic Acid Calcium Phosphorus Total Bilirubin C-Reactive Protein NT-Pro-B Natriuret Pep Total Protein Albumin Urine WBC (Auto) Urine Creatinine 07/29/18 07/29/18 07/29/18 05:19 08:16 09:24 WBC RBC Hgb Hct MCV MCH MCHC RDW Lymph % (Auto) [place] % (Auto) Lymph # [place] # Seg Neutrophils % Seg Neuts % (Manual) Lymphocytes % (Manual) Monocytes % (Manual) Nucleated RBC % Seg Neutrophils # Seg Neutrophils # Man Lymphocytes # (Manual) Monocytes # (Manual) PT INR APTT D-Dimer Heparin Anti-Xa Level 0.25 L POC ABG pH POC ABG pCO2 POC ABG pO2 Sodium Potassium Chloride Carbon Dioxide BUN Creatinine Glucose POC Glucose 181 H Lactic Acid Calcium Phosphorus Total Bilirubin C-Reactive Protein NT-Pro-B Natriuret Pep Total Protein Albumin Urine WBC (Auto) 29.0 H Urine Creatinine 07/29/18 07/29/18 07/29/18 09:24 10:00 15:03 WBC RBC Hgb Hct MCV MCH MCHC RDW Lymph % (Auto) [place] % (Auto) Lymph # [place] # Seg Neutrophils % Seg Neuts % (Manual) Lymphocytes % (Manual) Monocytes % (Manual) Nucleated RBC % Seg Neutrophils # Seg Neutrophils # Man Lymphocytes # (Manual) Monocytes # (Manual) PT INR APTT D-Dimer Heparin Anti-Xa Level POC ABG pH POC ABG pCO2 POC ABG pO2 Sodium Potassium Chloride Carbon Dioxide BUN Creatinine Glucose POC Glucose 195 H 167 H Lactic Acid Calcium Phosphorus Total Bilirubin C-Reactive Protein NT-Pro-B Natriuret Pep Total Protein Albumin Urine WBC (Auto) Urine Creatinine 72.3 H 07/29/18 07/29/18 07/30/18 17:51 21:32 01:38 WBC RBC Hgb Hct MCV MCH MCHC RDW Lymph % (Auto) [place] % (Auto) Lymph # [place] # Seg Neutrophils % Seg Neuts % (Manual) Lymphocytes % (Manual) Monocytes % (Manual) Nucleated RBC % Seg Neutrophils # Seg Neutrophils # Man Lymphocytes # (Manual) Monocytes # (Manual) PT INR APTT D-Dimer Heparin Anti-Xa Level POC ABG pH POC ABG pCO2 POC ABG pO2 Sodium Potassium Chloride Carbon Dioxide BUN Creatinine Glucose POC Glucose 167 H 217 H 194 H Lactic Acid Calcium Phosphorus Total Bilirubin C-Reactive Protein NT-Pro-B Natriuret Pep Total Protein Albumin Urine WBC (Auto) Urine Creatinine 07/30/18 07/30/18 07/30/18 03:21 05:13 10:18 WBC RBC Hgb Hct MCV MCH MCHC RDW Lymph % (Auto) [place] % (Auto) Lymph # [place] # Seg Neutrophils % Seg Neuts % (Manual) Lymphocytes % (Manual) Monocytes % (Manual) Nucleated RBC % Seg Neutrophils # Seg Neutrophils # Man Lymphocytes # (Manual) Monocytes # (Manual) PT INR APTT D-Dimer Heparin Anti-Xa Level POC ABG pH POC ABG pCO2 50.3 H POC ABG pO2 78 L Sodium Potassium Chloride Carbon Dioxide BUN 41 H Creatinine Glucose 202 H POC Glucose 151 H Lactic Acid Calcium Phosphorus Total Bilirubin C-Reactive Protein NT-Pro-B Natriuret Pep Total Protein Albumin Urine WBC (Auto) Urine Creatinine 07/30/18 07/30/18 07/30/18 11:29 16:28 18:12 WBC RBC Hgb Hct MCV MCH MCHC RDW Lymph % (Auto) [place] % (Auto) Lymph # [place] # Seg Neutrophils % Seg Neuts % (Manual) Lymphocytes % (Manual) Monocytes % (Manual) Nucleated RBC % Seg Neutrophils # Seg Neutrophils # Man Lymphocytes # (Manual) Monocytes # (Manual) PT INR APTT D-Dimer Heparin Anti-Xa Level POC ABG pH 7.326 L POC ABG pCO2 53.2 H POC ABG pO2 70 L Sodium Potassium Chloride Carbon Dioxide BUN Creatinine Glucose POC Glucose 247 H 212 H Lactic Acid Calcium Phosphorus Total Bilirubin C-Reactive Protein NT-Pro-B Natriuret Pep Total Protein Albumin Urine WBC (Auto) Urine Creatinine 07/30/18 07/30/18 07/31/18 20:08 21:52 01:59 WBC RBC Hgb Hct MCV MCH MCHC RDW Lymph % (Auto) [place] % (Auto) Lymph # [place] # Seg Neutrophils % Seg Neuts % (Manual) Lymphocytes % (Manual) Monocytes % (Manual) Nucleated RBC % Seg Neutrophils # Seg Neutrophils # Man Lymphocytes # (Manual) Monocytes # (Manual) PT INR APTT D-Dimer Heparin Anti-Xa Level POC ABG pH POC ABG pCO2 POC ABG pO2 Sodium Potassium Chloride Carbon Dioxide BUN Creatinine Glucose POC Glucose 205 H 215 H 242 H Lactic Acid Calcium Phosphorus Total Bilirubin C-Reactive Protein NT-Pro-B Natriuret Pep Total Protein Albumin Urine WBC (Auto) Urine Creatinine 07/31/18 07/31/18 07/31/18 03:14 03:14 04:55 WBC RBC Hgb 10.6 L Hct 33.2 L MCV MCH MCHC RDW Lymph % (Auto) [place] % (Auto) Lymph # [place] # Seg Neutrophils % Seg Neuts % (Manual) Lymphocytes % (Manual) Monocytes % (Manual) Nucleated RBC % Seg Neutrophils # Seg Neutrophils # Man Lymphocytes # (Manual) Monocytes # (Manual) PT INR APTT D-Dimer Heparin Anti-Xa Level POC ABG pH 7.331 L POC ABG pCO2 67.1 H POC ABG pO2 Sodium Potassium Chloride Carbon Dioxide BUN 36 H Creatinine 0.7 L Glucose 242 H POC Glucose Lactic Acid Calcium 10.3 H Phosphorus 2.30 L Total Bilirubin C-Reactive Protein NT-Pro-B Natriuret Pep Total Protein Albumin Urine WBC (Auto) Urine Creatinine 07/31/18 07/31/18 07/31/18 05:37 10:08 14:07 WBC RBC Hgb Hct MCV MCH MCHC RDW Lymph % (Auto) [place] % (Auto) Lymph # [place] # Seg Neutrophils % Seg Neuts % (Manual) Lymphocytes % (Manual) Monocytes % (Manual) Nucleated RBC % Seg Neutrophils # Seg Neutrophils # Man Lymphocytes # (Manual) Monocytes # (Manual) PT INR APTT D-Dimer Heparin Anti-Xa Level POC ABG pH POC ABG pCO2 POC ABG pO2 Sodium Potassium Chloride Carbon Dioxide BUN Creatinine Glucose POC Glucose 193 H 247 H 225 H Lactic Acid Calcium Phosphorus Total Bilirubin C-Reactive Protein NT-Pro-B Natriuret Pep Total Protein Albumin Urine WBC (Auto) Urine Creatinine 07/31/18 07/31/18 08/01/18 18:12 21:34 02:00 WBC RBC Hgb Hct MCV MCH MCHC RDW Lymph % (Auto) [place] % (Auto) Lymph # [place] # Seg Neutrophils % Seg Neuts % (Manual) Lymphocytes % (Manual) Monocytes % (Manual) Nucleated RBC % Seg Neutrophils # Seg Neutrophils # Man Lymphocytes # (Manual) Monocytes # (Manual) PT INR APTT D-Dimer Heparin Anti-Xa Level POC ABG pH POC ABG pCO2 POC ABG pO2 Sodium Potassium Chloride Carbon Dioxide BUN Creatinine Glucose POC Glucose 197 H 204 H 239 H Lactic Acid Calcium Phosphorus Total Bilirubin C-Reactive Protein NT-Pro-B Natriuret Pep Total Protein Albumin Urine WBC (Auto) Urine Creatinine 08/01/18 08/01/18 08/01/18 04:13 04:37 05:29 WBC RBC Hgb Hct MCV MCH MCHC RDW Lymph % (Auto) [place] % (Auto) Lymph # [place] # Seg Neutrophils % Seg Neuts % (Manual) Lymphocytes % (Manual) Monocytes % (Manual) Nucleated RBC % Seg Neutrophils # Seg Neutrophils # Man Lymphocytes # (Manual) Monocytes # (Manual) PT INR APTT D-Dimer Heparin Anti-Xa Level POC ABG pH 7.296 L POC ABG pCO2 81.9 H POC ABG pO2 190 H Sodium 150 H D Potassium Chloride Carbon Dioxide 37 H D BUN 37 H Creatinine 0.6 L Glucose 223 H POC Glucose 219 H Lactic Acid Calcium Phosphorus Total Bilirubin C-Reactive Protein NT-Pro-B Natriuret Pep Total Protein Albumin Urine WBC (Auto) Urine Creatinine 08/01/18 08/01/18 08/01/18 09:28 11:00 17:36 WBC RBC Hgb Hct MCV MCH MCHC RDW Lymph % (Auto) [place] % (Auto) Lymph # [place] # Seg Neutrophils % Seg Neuts % (Manual) Lymphocytes % (Manual) Monocytes % (Manual) Nucleated RBC % Seg Neutrophils # Seg Neutrophils # Man Lymphocytes # (Manual) Monocytes # (Manual) PT INR APTT D-Dimer Heparin Anti-Xa Level POC ABG pH POC ABG pCO2 61.2 H POC ABG pO2 69 L Sodium Potassium Chloride Carbon Dioxide BUN Creatinine Glucose POC Glucose 185 H 234 H Lactic Acid Calcium Phosphorus Total Bilirubin C-Reactive Protein NT-Pro-B Natriuret Pep Total Protein Albumin Urine WBC (Auto) Urine Creatinine 08/01/18 08/02/18 08/02/18 21:54 00:08 00:44 WBC RBC Hgb Hct MCV MCH MCHC RDW Lymph % (Auto) [place] % (Auto) Lymph # [place] # Seg Neutrophils % Seg Neuts % (Manual) Lymphocytes % (Manual) Monocytes % (Manual) Nucleated RBC % Seg Neutrophils # Seg Neutrophils # Man Lymphocytes # (Manual) Monocytes # (Manual) PT INR APTT D-Dimer Heparin Anti-Xa Level 0.77 H POC ABG pH POC ABG pCO2 66.4 H POC ABG pO2 64 L Sodium Potassium Chloride Carbon Dioxide BUN Creatinine Glucose POC Glucose 242 H Lactic Acid Calcium Phosphorus Total Bilirubin C-Reactive Protein NT-Pro-B Natriuret Pep Total Protein Albumin Urine WBC (Auto) Urine Creatinine 08/02/18 08/02/18 08/02/18 02:46 04:45 04:45 WBC RBC Hgb 10.7 L Hct 33.7 L MCV MCH MCHC RDW Lymph % (Auto) [place] % (Auto) Lymph # [place] # Seg Neutrophils % Seg Neuts % (Manual) Lymphocytes % (Manual) Monocytes % (Manual) Nucleated RBC % Seg Neutrophils # Seg Neutrophils # Man Lymphocytes # (Manual) Monocytes # (Manual) PT INR APTT D-Dimer Heparin Anti-Xa Level POC ABG pH POC ABG pCO2 POC ABG pO2 Sodium 152 H Potassium Chloride 108.1 H Carbon Dioxide 39 H BUN 38 H Creatinine 0.6 L Glucose 226 H POC Glucose 206 H Lactic Acid Calcium Phosphorus Total Bilirubin C-Reactive Protein NT-Pro-B Natriuret Pep Total Protein Albumin Urine WBC (Auto) Urine Creatinine 08/02/18 08/02/18 08/02/18 05:31 09:46 14:23 WBC RBC Hgb Hct MCV MCH MCHC RDW Lymph % (Auto) [place] % (Auto) Lymph # [place] # Seg Neutrophils % Seg Neuts % (Manual) Lymphocytes % (Manual) Monocytes % (Manual) Nucleated RBC % Seg Neutrophils # Seg Neutrophils # Man Lymphocytes # (Manual) Monocytes # (Manual) PT INR APTT D-Dimer Heparin Anti-Xa Level 0.91 H POC ABG pH POC ABG pCO2 POC ABG pO2 Sodium Potassium Chloride Carbon Dioxide BUN Creatinine Glucose POC Glucose 214 H 210 H Lactic Acid Calcium Phosphorus Total Bilirubin C-Reactive Protein NT-Pro-B Natriuret Pep Total Protein Albumin Urine WBC (Auto) Urine Creatinine 08/02/18 08/02/18 08/02/18 15:46 17:56 21:50 WBC RBC Hgb Hct MCV MCH MCHC RDW Lymph % (Auto) [place] % (Auto) Lymph # [place] # Seg Neutrophils % Seg Neuts % (Manual) Lymphocytes % (Manual) Monocytes % (Manual) Nucleated RBC % Seg Neutrophils # Seg Neutrophils # Man Lymphocytes # (Manual) Monocytes # (Manual) PT INR APTT D-Dimer Heparin Anti-Xa Level 0.99 H POC ABG pH POC ABG pCO2 POC ABG pO2 Sodium Potassium Chloride Carbon Dioxide BUN Creatinine Glucose POC Glucose 252 H 222 H Lactic Acid Calcium Phosphorus Total Bilirubin C-Reactive Protein NT-Pro-B Natriuret Pep Total Protein Albumin Urine WBC (Auto) Urine Creatinine 12/19/18 12/19/18 12/19/18 02:18 05:21 05:25 WBC RBC Hgb Hct MCV MCH MCHC RDW Lymph % (Auto) [place] % (Auto) Lymph # [place] # Seg Neutrophils % Seg Neuts % (Manual) Lymphocytes % (Manual) Monocytes % (Manual) Nucleated RBC % Seg Neutrophils # Seg Neutrophils # Man Lymphocytes # (Manual) Monocytes # (Manual) PT INR APTT D-Dimer Heparin Anti-Xa Level POC ABG pH POC ABG pCO2 POC ABG pO2 Sodium 151 H Potassium Chloride 107.3 H Carbon Dioxide 37 H BUN 42 H Creatinine 0.6 L Glucose 263 H POC Glucose 241 H 241 H Lactic Acid Calcium Phosphorus Total Bilirubin C-Reactive Protein NT-Pro-B Natriuret Pep Total Protein Albumin Urine WBC (Auto) Urine Creatinine 08/03/18 08/03/18 08/03/18 09:11 12:20 14:33 WBC RBC Hgb Hct MCV MCH MCHC RDW Lymph % (Auto) [place] % (Auto) Lymph # [place] # Seg Neutrophils % Seg Neuts % (Manual) Lymphocytes % (Manual) Monocytes % (Manual) Nucleated RBC % Seg Neutrophils # Seg Neutrophils # Man Lymphocytes # (Manual) Monocytes # (Manual) PT INR APTT D-Dimer Heparin Anti-Xa Level POC ABG pH POC ABG pCO2 POC ABG pO2 Sodium Potassium Chloride Carbon Dioxide BUN Creatinine Glucose POC Glucose 272 H 234 H 247 H Lactic Acid Calcium Phosphorus Total Bilirubin C-Reactive Protein NT-Pro-B Natriuret Pep Total Protein Albumin Urine WBC (Auto) Urine Creatinine 08/03/18 08/03/18 08/04/18 16:48 21:21 01:56 WBC RBC Hgb Hct MCV MCH MCHC RDW Lymph % (Auto) [place] % (Auto) Lymph # [place] # Seg Neutrophils % Seg Neuts % (Manual) Lymphocytes % (Manual) Monocytes % (Manual) Nucleated RBC % Seg Neutrophils # Seg Neutrophils # Man Lymphocytes # (Manual) Monocytes # (Manual) PT INR APTT D-Dimer Heparin Anti-Xa Level POC ABG pH POC ABG pCO2 POC ABG pO2 Sodium Potassium Chloride Carbon Dioxide BUN Creatinine Glucose POC Glucose 180 H 189 H Lactic Acid Calcium Phosphorus Total Bilirubin C-Reactive Protein 2.30 H NT-Pro-B Natriuret Pep Total Protein Albumin Urine WBC (Auto) Urine Creatinine 1208/04/18 08/04/18 01:58 05:05 05:05 WBC 25.5 H RBC 3.31 L Hgb 10.8 L Hct 34.1 L MCV 103 H MCH 33 H MCHC RDW 16.0 H Lymph % (Auto) [place] % (Auto) Lymph # [place] # Seg Neutrophils % Seg Neuts % (Manual) Lymphocytes % (Manual) 8.0 L Monocytes % (Manual) Nucleated RBC % 2.0 H Seg Neutrophils # Seg Neutrophils # Man 16.3 H Lymphocytes # (Manual) Monocytes # (Manual) 1.0 H PT INR APTT D-Dimer Heparin Anti-Xa Level 0.79 H POC ABG pH POC ABG pCO2 POC ABG pO2 Sodium 148 H Potassium Chloride Carbon Dioxide 36 H BUN 35 H Creatinine 0.6 L Glucose 160 H POC Glucose Lactic Acid Calcium Phosphorus Total Bilirubin C-Reactive Protein NT-Pro-B Natriuret Pep Total Protein Albumin Urine WBC (Auto) Urine Creatinine 08/04/18 08/04/18 08/04/18 05:24 05:33 08:46 WBC RBC Hgb Hct MCV MCH MCHC RDW Lymph % (Auto) [place] % (Auto) Lymph # [place] # Seg Neutrophils % Seg Neuts % (Manual) Lymphocytes % (Manual) Monocytes % (Manual) Nucleated RBC % Seg Neutrophils # Seg Neutrophils # Man Lymphocytes # (Manual) Monocytes # (Manual) PT INR APTT D-Dimer Heparin Anti-Xa Level 0.76 H POC ABG pH POC ABG pCO2 65.7 H POC ABG pO2 63 L Sodium Potassium Chloride Carbon Dioxide BUN Creatinine Glucose POC Glucose 159 H Lactic Acid Calcium Phosphorus Total Bilirubin C-Reactive Protein NT-Pro-B Natriuret Pep Total Protein Albumin Urine WBC (Auto) Urine Creatinine 08/04/18 08/04/18 08/04/18 09:12 15:38 18:20 WBC RBC Hgb Hct MCV MCH MCHC RDW Lymph % (Auto) [place] % (Auto) Lymph # [place] # Seg Neutrophils % Seg Neuts % (Manual) Lymphocytes % (Manual) Monocytes % (Manual) Nucleated RBC % Seg Neutrophils # Seg Neutrophils # Man Lymphocytes # (Manual) Monocytes # (Manual) PT INR APTT D-Dimer Heparin Anti-Xa Level POC ABG pH POC ABG pCO2 POC ABG pO2 Sodium Potassium Chloride Carbon Dioxide BUN Creatinine Glucose POC Glucose 140 H 267 H 252 H Lactic Acid Calcium Phosphorus Total Bilirubin C-Reactive Protein NT-Pro-B Natriuret Pep Total Protein Albumin Urine WBC (Auto) Urine Creatinine 08/04/18 08/05/18 08/05/18 21:17 02:51 04:36 WBC RBC Hgb Hct MCV MCH MCHC RDW Lymph % (Auto) [place] % (Auto) Lymph # [place] # Seg Neutrophils % Seg Neuts % (Manual) Lymphocytes % (Manual) Monocytes % (Manual) Nucleated RBC % Seg Neutrophils # Seg Neutrophils # Man Lymphocytes # (Manual) Monocytes # (Manual) PT INR APTT D-Dimer Heparin Anti-Xa Level POC ABG pH POC ABG pCO2 POC ABG pO2 Sodium Potassium Chloride Carbon Dioxide BUN Creatinine Glucose POC Glucose 181 H 240 H 255 H Lactic Acid Calcium Phosphorus Total Bilirubin C-Reactive Protein NT-Pro-B Natriuret Pep Total Protein Albumin Urine WBC (Auto) Urine Creatinine 08/05/18 08/05/18 08/05/18 04:55 10:21 12:39 WBC 21.8 H RBC 3.18 L Hgb 10.3 L Hct 32.6 L MCV 103 H MCH 33 H MCHC RDW 16.3 H Lymph % (Auto) [place] % (Auto) Lymph # [place] # Seg Neutrophils % Seg Neuts % (Manual) 88.0 H Lymphocytes % (Manual) 4.0 L Monocytes % (Manual) Nucleated RBC % Seg Neutrophils # Seg Neutrophils # Man 19.2 H Lymphocytes # (Manual) 0.9 L Monocytes # (Manual) PT INR APTT D-Dimer Heparin Anti-Xa Level POC ABG pH 7.506 H POC ABG pCO2 56.0 H POC ABG pO2 63 L Sodium Potassium Chloride Carbon Dioxide BUN Creatinine Glucose POC Glucose 227 H Lactic Acid Calcium Phosphorus Total Bilirubin C-Reactive Protein NT-Pro-B Natriuret Pep Total Protein Albumin Urine WBC (Auto) Urine Creatinine 08/05/18 08/05/18 08/05/18 12:39 14:10 17:30 WBC RBC Hgb Hct MCV MCH MCHC RDW Lymph % (Auto) [place] % (Auto) Lymph # [place] # Seg Neutrophils % Seg Neuts % (Manual) Lymphocytes % (Manual) Monocytes % (Manual) Nucleated RBC % Seg Neutrophils # Seg Neutrophils # Man Lymphocytes # (Manual) Monocytes # (Manual) PT INR APTT D-Dimer Heparin Anti-Xa Level < 0.10 L POC ABG pH POC ABG pCO2 POC ABG pO2 Sodium Potassium Chloride 96.8 L Carbon Dioxide 38 H BUN 36 H Creatinine 0.6 L Glucose 218 H POC Glucose 221 H Lactic Acid Calcium Phosphorus Total Bilirubin C-Reactive Protein NT-Pro-B Natriuret Pep Total Protein Albumin Urine WBC (Auto) Urine Creatinine 08/05/18 08/05/18 08/06/18 18:32 23:32 02:26 WBC RBC Hgb Hct MCV MCH MCHC RDW Lymph % (Auto) [place] % (Auto) Lymph # [place] # Seg Neutrophils % Seg Neuts % (Manual) Lymphocytes % (Manual) Monocytes % (Manual) Nucleated RBC % Seg Neutrophils # Seg Neutrophils # Man Lymphocytes # (Manual) Monocytes # (Manual) PT INR APTT D-Dimer Heparin Anti-Xa Level POC ABG pH POC ABG pCO2 POC ABG pO2 Sodium Potassium Chloride Carbon Dioxide BUN Creatinine Glucose POC Glucose 253 H 215 H 227 H Lactic Acid Calcium Phosphorus Total Bilirubin C-Reactive Protein NT-Pro-B Natriuret Pep Total Protein Albumin Urine WBC (Auto) Urine Creatinine 08/06/18 08/06/18 08/06/18 05:17 05:17 05:32 WBC 18.9 H RBC 3.06 L Hgb 10.2 L Hct 31.3 L MCV 102 H MCH 33 H MCHC RDW 16.1 H Lymph % (Auto) [place] % (Auto) Lymph # [place] # Seg Neutrophils % Seg Neuts % (Manual) Lymphocytes % (Manual) Monocytes % (Manual) Nucleated RBC % Seg Neutrophils # Seg Neutrophils # Man Lymphocytes # (Manual) Monocytes # (Manual) PT INR APTT D-Dimer Heparin Anti-Xa Level POC ABG pH 7.468 H POC ABG pCO2 59.5 H POC ABG pO2 64 L Sodium Potassium Chloride Carbon Dioxide 37 H BUN 37 H Creatinine 0.5 L Glucose 226 H POC Glucose Lactic Acid Calcium Phosphorus Total Bilirubin C-Reactive Protein NT-Pro-B Natriuret Pep Total Protein Albumin Urine WBC (Auto) Urine Creatinine 08/06/18 08/06/18 08/06/18 10:11 15:03 17:48 WBC RBC Hgb Hct MCV MCH MCHC RDW Lymph % (Auto) [place] % (Auto) Lymph # [place] # Seg Neutrophils % Seg Neuts % (Manual) Lymphocytes % (Manual) Monocytes % (Manual) Nucleated RBC % Seg Neutrophils # Seg Neutrophils # Man Lymphocytes # (Manual) Monocytes # (Manual) PT INR APTT D-Dimer Heparin Anti-Xa Level POC ABG pH POC ABG pCO2 POC ABG pO2 Sodium Potassium Chloride Carbon Dioxide BUN Creatinine Glucose POC Glucose 207 H 229 H 188 H Lactic Acid Calcium Phosphorus Total Bilirubin C-Reactive Protein NT-Pro-B Natriuret Pep Total Protein Albumin Urine WBC (Auto) Urine Creatinine 08/06/18 08/07/18 08/07/18 22:53 01:55 05:30 WBC RBC Hgb Hct MCV MCH MCHC RDW Lymph % (Auto) [place] % (Auto) Lymph # [place] # Seg Neutrophils % Seg Neuts % (Manual) Lymphocytes % (Manual) Monocytes % (Manual) Nucleated RBC % Seg Neutrophils # Seg Neutrophils # Man Lymphocytes # (Manual) Monocytes # (Manual) PT INR APTT D-Dimer Heparin Anti-Xa Level POC ABG pH POC ABG pCO2 69.6 H POC ABG pO2 64 L Sodium Potassium Chloride Carbon Dioxide BUN Creatinine Glucose POC Glucose 146 H 143 H Lactic Acid Calcium Phosphorus Total Bilirubin C-Reactive Protein NT-Pro-B Natriuret Pep Total Protein Albumin Urine WBC (Auto) Urine Creatinine 08/07/18 08/07/18 08/07/18 09:59 14:16 15:08 WBC RBC Hgb 10.3 L Hct 32.2 L MCV MCH MCHC RDW Lymph % (Auto) [place] % (Auto) Lymph # [place] # Seg Neutrophils % Seg Neuts % (Manual) Lymphocytes % (Manual) Monocytes % (Manual) Nucleated RBC % Seg Neutrophils # Seg Neutrophils # Man Lymphocytes # (Manual) Monocytes # (Manual) PT INR APTT D-Dimer Heparin Anti-Xa Level POC ABG pH POC ABG pCO2 POC ABG pO2 Sodium Potassium Chloride Carbon Dioxide BUN Creatinine Glucose POC Glucose 188 H 223 H Lactic Acid Calcium Phosphorus Total Bilirubin C-Reactive Protein NT-Pro-B Natriuret Pep Total Protein Albumin Urine WBC (Auto) Urine Creatinine 08/07/18 08/07/18 08/07/18 15:08 17:39 22:04 WBC RBC Hgb Hct MCV MCH MCHC RDW Lymph % (Auto) [place] % (Auto) Lymph # [place] # Seg Neutrophils % Seg Neuts % (Manual) Lymphocytes % (Manual) Monocytes % (Manual) Nucleated RBC % Seg Neutrophils # Seg Neutrophils # Man Lymphocytes # (Manual) Monocytes # (Manual) PT INR APTT 23.2 L D-Dimer Heparin Anti-Xa Level POC ABG pH POC ABG pCO2 POC ABG pO2 Sodium Potassium Chloride Carbon Dioxide BUN Creatinine Glucose POC Glucose 208 H 163 H Lactic Acid Calcium Phosphorus Total Bilirubin C-Reactive Protein NT-Pro-B Natriuret Pep Total Protein Albumin Urine WBC (Auto) Urine Creatinine 08/07/18 08/08/18 08/08/18 22:30 01:57 02:09 WBC 14.6 H RBC 2.88 L Hgb 9.5 L Hct 29.9 L MCV 104 H MCH 33 H MCHC RDW 16.8 H Lymph % (Auto) [place] % (Auto) Lymph # [place] # Seg Neutrophils % Seg Neuts % (Manual) 73.0 H Lymphocytes % (Manual) 9.0 L Monocytes % (Manual) 10.0 H Nucleated RBC % Seg Neutrophils # Seg Neutrophils # Man 10.7 H Lymphocytes # (Manual) Monocytes # (Manual) 1.5 H PT INR APTT D-Dimer Heparin Anti-Xa Level 0.25 L POC ABG pH POC ABG pCO2 POC ABG pO2 Sodium Potassium Chloride Carbon Dioxide BUN Creatinine Glucose POC Glucose 120 H Lactic Acid Calcium Phosphorus Total Bilirubin C-Reactive Protein NT-Pro-B Natriuret Pep Total Protein Albumin Urine WBC (Auto) Urine Creatinine 08/08/18 08/08/18 08/08/18 02:09 04:58 05:19 WBC RBC Hgb Hct MCV MCH MCHC RDW Lymph % (Auto) [place] % (Auto) Lymph # [place] # Seg Neutrophils % Seg Neuts % (Manual) Lymphocytes % (Manual) Monocytes % (Manual) Nucleated RBC % Seg Neutrophils # Seg Neutrophils # Man Lymphocytes # (Manual) Monocytes # (Manual) PT INR APTT D-Dimer Heparin Anti-Xa Level POC ABG pH 7.461 H POC ABG pCO2 57.3 H POC ABG pO2 62 L Sodium Potassium Chloride Carbon Dioxide 39 H BUN 29 H Creatinine 0.5 L Glucose 124 H POC Glucose 139 H Lactic Acid Calcium Phosphorus Total Bilirubin C-Reactive Protein NT-Pro-B Natriuret Pep Total Protein Albumin Urine WBC (Auto) Urine Creatinine 08/08/18 08/08/18 08/08/18 10:22 14:52 16:12 WBC RBC Hgb Hct MCV MCH MCHC RDW Lymph % (Auto) [place] % (Auto) Lymph # [place] # Seg Neutrophils % Seg Neuts % (Manual) Lymphocytes % (Manual) Monocytes % (Manual) Nucleated RBC % Seg Neutrophils # Seg Neutrophils # Man Lymphocytes # (Manual) Monocytes # (Manual) PT INR APTT D-Dimer Heparin Anti-Xa Level POC ABG pH POC ABG pCO2 POC ABG pO2 Sodium Potassium Chloride Carbon Dioxide BUN Creatinine Glucose POC Glucose 169 H 149 H 136 H Lactic Acid Calcium Phosphorus Total Bilirubin C-Reactive Protein NT-Pro-B Natriuret Pep Total Protein Albumin Urine WBC (Auto) Urine Creatinine 08/09/18 08/09/18 08/09/18 02:26 03:52 03:52 WBC 15.9 H RBC 2.87 L Hgb 9.6 L Hct 30.7 L MCV 107 H MCH 34 H MCHC 31 L RDW 17.8 H Lymph % (Auto) 3.9 L [place] % (Auto) 8.1 H Lymph # 0.6 L [place] # 1.3 H Seg Neutrophils % 87.1 H Seg Neuts % (Manual) Lymphocytes % (Manual) Monocytes % (Manual) Nucleated RBC % Seg Neutrophils # 13.9 H Seg Neutrophils # Man Lymphocytes # (Manual) Monocytes # (Manual) PT INR APTT D-Dimer Heparin Anti-Xa Level 0.25 L POC ABG pH POC ABG pCO2 POC ABG pO2 Sodium Potassium Chloride Carbon Dioxide BUN Creatinine Glucose POC Glucose 126 H Lactic Acid Calcium Phosphorus Total Bilirubin C-Reactive Protein NT-Pro-B Natriuret Pep Total Protein Albumin Urine WBC (Auto) Urine Creatinine 08/09/18 08/09/18 08/09/18 03:52 05:34 06:48 WBC RBC Hgb Hct MCV MCH MCHC RDW Lymph % (Auto) [place] % (Auto) Lymph # [place] # Seg Neutrophils % Seg Neuts % (Manual) Lymphocytes % (Manual) Monocytes % (Manual) Nucleated RBC % Seg Neutrophils # Seg Neutrophils # Man Lymphocytes # (Manual) Monocytes # (Manual) PT INR APTT D-Dimer Heparin Anti-Xa Level POC ABG pH POC ABG pCO2 57.5 H POC ABG pO2 58 L Sodium Potassium Chloride Carbon Dioxide 39 H BUN 26 H Creatinine 0.5 L Glucose 128 H POC Glucose 171 H Lactic Acid Calcium Phosphorus Total Bilirubin C-Reactive Protein NT-Pro-B Natriuret Pep Total Protein Albumin Urine WBC (Auto) Urine Creatinine 08/09/18 08/09/18 08/09/18 09:28 09:36 13:44 WBC RBC Hgb Hct MCV MCH MCHC RDW Lymph % (Auto) [place] % (Auto) Lymph # [place] # Seg Neutrophils % Seg Neuts % (Manual) Lymphocytes % (Manual) Monocytes % (Manual) Nucleated RBC % Seg Neutrophils # Seg Neutrophils # Man Lymphocytes # (Manual) Monocytes # (Manual) PT INR APTT D-Dimer Heparin Anti-Xa Level 0.26 L POC ABG pH POC ABG pCO2 POC ABG pO2 Sodium Potassium Chloride Carbon Dioxide BUN Creatinine Glucose POC Glucose 183 H 184 H Lactic Acid Calcium Phosphorus Total Bilirubin C-Reactive Protein NT-Pro-B Natriuret Pep Total Protein Albumin Urine WBC (Auto) Urine Creatinine 08/09/18 08/10/18 08/10/18 17:55 04:49 05:20 WBC RBC Hgb Hct MCV MCH MCHC RDW Lymph % (Auto) [place] % (Auto) Lymph # [place] # Seg Neutrophils % Seg Neuts % (Manual) Lymphocytes % (Manual) Monocytes % (Manual) Nucleated RBC % Seg Neutrophils # Seg Neutrophils # Man Lymphocytes # (Manual) Monocytes # (Manual) PT INR APTT D-Dimer Heparin Anti-Xa Level POC ABG pH POC ABG pCO2 59.9 H POC ABG pO2 59 L Sodium Potassium Chloride Carbon Dioxide BUN Creatinine Glucose POC Glucose 148 H 59 L Lactic Acid Calcium Phosphorus Total Bilirubin C-Reactive Protein NT-Pro-B Natriuret Pep Total Protein Albumin Urine WBC (Auto) Urine Creatinine 08/10/18 08/10/18 08/10/18 05:53 17:12 21:17 WBC RBC Hgb Hct MCV MCH MCHC RDW Lymph % (Auto) [place] % (Auto) Lymph # [place] # Seg Neutrophils % Seg Neuts % (Manual) Lymphocytes % (Manual) Monocytes % (Manual) Nucleated RBC % Seg Neutrophils # Seg Neutrophils # Man Lymphocytes # (Manual) Monocytes # (Manual) PT INR APTT D-Dimer Heparin Anti-Xa Level POC ABG pH POC ABG pCO2 POC ABG pO2 Sodium Potassium Chloride Carbon Dioxide BUN Creatinine Glucose POC Glucose 128 H 110 H 109 H Lactic Acid Calcium Phosphorus Total Bilirubin C-Reactive Protein NT-Pro-B Natriuret Pep Total Protein Albumin Urine WBC (Auto) Urine Creatinine 08/11/18 08/11/18 08/11/18 00:54 02:28 04:17 WBC RBC Hgb 7.8 L Hct 24.1 L D MCV MCH MCHC RDW Lymph % (Auto) [place] % (Auto) Lymph # [place] # Seg Neutrophils % Seg Neuts % (Manual) Lymphocytes % (Manual) Monocytes % (Manual) Nucleated RBC % Seg Neutrophils # Seg Neutrophils # Man Lymphocytes # (Manual) Monocytes # (Manual) PT INR APTT D-Dimer Heparin Anti-Xa Level 0.19 L POC ABG pH POC ABG pCO2 POC ABG pO2 Sodium Potassium Chloride Carbon Dioxide BUN Creatinine Glucose POC Glucose 124 H Lactic Acid Calcium Phosphorus Total Bilirubin C-Reactive Protein NT-Pro-B Natriuret Pep Total Protein Albumin Urine WBC (Auto) Urine Creatinine 08/11/18 08/11/18 08/11/18 05:10 07:42 10:27 WBC RBC Hgb Hct MCV MCH MCHC RDW Lymph % (Auto) [place] % (Auto) Lymph # [place] # Seg Neutrophils % Seg Neuts % (Manual) Lymphocytes % (Manual) Monocytes % (Manual) Nucleated RBC % Seg Neutrophils # Seg Neutrophils # Man Lymphocytes # (Manual) Monocytes # (Manual) PT INR APTT D-Dimer Heparin Anti-Xa Level 0.20 L POC ABG pH POC ABG pCO2 POC ABG pO2 Sodium Potassium Chloride Carbon Dioxide BUN Creatinine Glucose POC Glucose 150 H 156 H Lactic Acid Calcium Phosphorus Total Bilirubin C-Reactive Protein NT-Pro-B Natriuret Pep Total Protein Albumin Urine WBC (Auto) Urine Creatinine 08/11/18 08/11/18 08/11/18 13:54 15:06 18:13 WBC RBC Hgb Hct MCV MCH MCHC RDW Lymph % (Auto) [place] % (Auto) Lymph # [place] # Seg Neutrophils % Seg Neuts % (Manual) Lymphocytes % (Manual) Monocytes % (Manual) Nucleated RBC % Seg Neutrophils # Seg Neutrophils # Man Lymphocytes # (Manual) Monocytes # (Manual) PT INR APTT D-Dimer Heparin Anti-Xa Level POC ABG pH 7.471 H POC ABG pCO2 45.5 H POC ABG pO2 79 L Sodium Potassium Chloride Carbon Dioxide BUN Creatinine Glucose POC Glucose 177 H 143 H Lactic Acid Calcium Phosphorus Total Bilirubin C-Reactive Protein NT-Pro-B Natriuret Pep Total Protein Albumin Urine WBC (Auto) Urine Creatinine 08/11/18 08/11/18 08/11/18 18:33 21:22 Unknown WBC RBC Hgb Hct MCV MCH MCHC RDW Lymph % (Auto) [place] % (Auto) Lymph # [place] # Seg Neutrophils % Seg Neuts % (Manual) Lymphocytes % (Manual) Monocytes % (Manual) Nucleated RBC % Seg Neutrophils # Seg Neutrophils # Man Lymphocytes # (Manual) Monocytes # (Manual) PT INR APTT D-Dimer Heparin Anti-Xa Level 0.29 L POC ABG pH POC ABG pCO2 POC ABG pO2 Sodium 136 L Potassium Chloride 96.5 L Carbon Dioxide 32 H D BUN Creatinine 0.5 L Glucose 186 H POC Glucose 151 H Lactic Acid Calcium Phosphorus Total Bilirubin C-Reactive Protein NT-Pro-B Natriuret Pep Total Protein Albumin Urine WBC (Auto) Urine Creatinine 08/11/18 08/12/18 08/12/18 Unknown 02:09 05:29 WBC 12.1 H RBC 2.50 L Hgb 8.2 L Hct 25.7 L MCV 103 H MCH 33 H MCHC RDW 17.0 H Lymph % (Auto) 5.1 L [place] % (Auto) 9.5 H Lymph # 0.6 L [place] # 1.2 H Seg Neutrophils % 84.8 H Seg Neuts % (Manual) Lymphocytes % (Manual) Monocytes % (Manual) Nucleated RBC % Seg Neutrophils # 10.3 H Seg Neutrophils # Man Lymphocytes # (Manual) Monocytes # (Manual) PT INR APTT D-Dimer Heparin Anti-Xa Level POC ABG pH POC ABG pCO2 POC ABG pO2 Sodium Potassium Chloride Carbon Dioxide BUN Creatinine Glucose POC Glucose 159 H 136 H Lactic Acid Calcium Phosphorus Total Bilirubin C-Reactive Protein NT-Pro-B Natriuret Pep Total Protein Albumin Urine WBC (Auto) Urine Creatinine 08/12/18 08/12/18 08/12/18 07:33 09:59 13:59 WBC RBC Hgb Hct MCV MCH MCHC RDW Lymph % (Auto) [place] % (Auto) Lymph # [place] # Seg Neutrophils % Seg Neuts % (Manual) Lymphocytes % (Manual) Monocytes % (Manual) Nucleated RBC % Seg Neutrophils # Seg Neutrophils # Man Lymphocytes # (Manual) Monocytes # (Manual) PT INR APTT D-Dimer Heparin Anti-Xa Level POC ABG pH POC ABG pCO2 POC ABG pO2 Sodium Potassium Chloride Carbon Dioxide BUN Creatinine Glucose POC Glucose 138 H 157 H 167 H Lactic Acid Calcium Phosphorus Total Bilirubin C-Reactive Protein NT-Pro-B Natriuret Pep Total Protein Albumin Urine WBC (Auto) Urine Creatinine 08/12/18 08/12/18 08/12/18 14:31 14:56 17:39 WBC RBC Hgb Hct MCV MCH MCHC RDW Lymph % (Auto) [place] % (Auto) Lymph # [place] # Seg Neutrophils % Seg Neuts % (Manual) Lymphocytes % (Manual) Monocytes % (Manual) Nucleated RBC % Seg Neutrophils # Seg Neutrophils # Man Lymphocytes # (Manual) Monocytes # (Manual) PT INR APTT D-Dimer Heparin Anti-Xa Level 1.18 H POC ABG pH 7.466 H POC ABG pCO2 POC ABG pO2 58 L Sodium Potassium Chloride Carbon Dioxide BUN Creatinine Glucose POC Glucose 168 H Lactic Acid Calcium Phosphorus Total Bilirubin C-Reactive Protein NT-Pro-B Natriuret Pep Total Protein Albumin Urine WBC (Auto) Urine Creatinine 08/12/18 08/13/18 08/13/18 21:38 02:17 05:20 WBC RBC Hgb 8.0 L Hct 24.5 L MCV MCH MCHC RDW Lymph % (Auto) [place] % (Auto) Lymph # [place] # Seg Neutrophils % Seg Neuts % (Manual) Lymphocytes % (Manual) Monocytes % (Manual) Nucleated RBC % Seg Neutrophils # Seg Neutrophils # Man Lymphocytes # (Manual) Monocytes # (Manual) PT INR APTT D-Dimer Heparin Anti-Xa Level POC ABG pH POC ABG pCO2 POC ABG pO2 Sodium Potassium Chloride Carbon Dioxide BUN Creatinine Glucose POC Glucose 168 H 157 H Lactic Acid Calcium Phosphorus Total Bilirubin C-Reactive Protein NT-Pro-B Natriuret Pep Total Protein Albumin Urine WBC (Auto) Urine Creatinine 08/13/18 08/13/18 08/13/18 09:28 10:07 14:09 WBC RBC Hgb Hct MCV MCH MCHC RDW Lymph % (Auto) [place] % (Auto) Lymph # [place] # Seg Neutrophils % Seg Neuts % (Manual) Lymphocytes % (Manual) Monocytes % (Manual) Nucleated RBC % Seg Neutrophils # Seg Neutrophils # Man Lymphocytes # (Manual) Monocytes # (Manual) PT INR APTT D-Dimer Heparin Anti-Xa Level POC ABG pH 7.453 H POC ABG pCO2 47.5 H POC ABG pO2 Sodium Potassium Chloride Carbon Dioxide BUN Creatinine Glucose POC Glucose 177 H 178 H Lactic Acid Calcium Phosphorus Total Bilirubin C-Reactive Protein NT-Pro-B Natriuret Pep Total Protein Albumin Urine WBC (Auto) Urine Creatinine 08/13/18 08/13/18 08/14/18 17:33 21:28 01:58 WBC RBC Hgb Hct MCV MCH MCHC RDW Lymph % (Auto) [place] % (Auto) Lymph # [place] # Seg Neutrophils % Seg Neuts % (Manual) Lymphocytes % (Manual) Monocytes % (Manual) Nucleated RBC % Seg Neutrophils # Seg Neutrophils # Man Lymphocytes # (Manual) Monocytes # (Manual) PT INR APTT D-Dimer Heparin Anti-Xa Level POC ABG pH POC ABG pCO2 POC ABG pO2 Sodium Potassium Chloride Carbon Dioxide BUN Creatinine Glucose POC Glucose 130 H 145 H 161 H Lactic Acid Calcium Phosphorus Total Bilirubin C-Reactive Protein NT-Pro-B Natriuret Pep Total Protein Albumin Urine WBC (Auto) Urine Creatinine 08/14/18 08/14/18 08/14/18 05:22 06:10 09:59 WBC RBC Hgb Hct MCV MCH MCHC RDW Lymph % (Auto) [place] % (Auto) Lymph # [place] # Seg Neutrophils % Seg Neuts % (Manual) Lymphocytes % (Manual) Monocytes % (Manual) Nucleated RBC % Seg Neutrophils # Seg Neutrophils # Man Lymphocytes # (Manual) Monocytes # (Manual) PT INR APTT D-Dimer Heparin Anti-Xa Level POC ABG pH POC ABG pCO2 POC ABG pO2 Sodium Potassium Chloride Carbon Dioxide BUN Creatinine 0.5 L Glucose 125 H POC Glucose 117 H 107 H Lactic Acid Calcium Phosphorus Total Bilirubin C-Reactive Protein NT-Pro-B Natriuret Pep Total Protein Albumin Urine WBC (Auto) Urine Creatinine 08/14/18 14:04 WBC RBC Hgb Hct MCV MCH MCHC RDW Lymph % (Auto) [place] % (Auto) Lymph # [place] # Seg Neutrophils % Seg Neuts % (Manual) Lymphocytes % (Manual) Monocytes % (Manual) Nucleated RBC % Seg Neutrophils # Seg Neutrophils # Man Lymphocytes # (Manual) Monocytes # (Manual) PT INR APTT D-Dimer Heparin Anti-Xa Level POC ABG pH POC ABG pCO2 POC ABG pO2 Sodium Potassium Chloride Carbon Dioxide BUN Creatinine Glucose POC Glucose 137 H Lactic Acid Calcium Phosphorus Total Bilirubin C-Reactive Protein NT-Pro-B Natriuret Pep Total Protein Albumin Urine WBC (Auto) Urine Creatinine Chest x-ray: image reviewed Allied health notes reviewed: RT
[2018-08-14] MEDS: LANTUS SUB-Q SCH (21:42)
[2018-08-14 22:18] LABS: Hematocrit 28.6 % (35.5-45.6); Hemoglobin 9.3 gm/dl (11.8-15.2); Mean Corpuscular HGB Conc 33 % (32-34); Mean Corpuscular Volume 102 fl (84-94); Platelet Count 318 K/mm3 (140-440); Red Blood Count 2.79 M/mm3 (3.65-5.03); Red Cell Distribution Width 16.6 % (13.2-15.2)
[2018-08-14] MEDS: SUBLIMAZE IV PRN (22:46)
[2018-08-14] MEDS ORDERED: CARDIZEM/D5W 100MG/100ML 100 MG/100 ML BAG IV SCH (23:00)
[2018-08-15] MEDS: HumaLOG SUB-Q SCH ×5 (03:03→22:05)
[2018-08-15 04:21] LABS: Hematocrit 25.7 % (35.5-45.6); Hemoglobin 8.4 gm/dl (11.8-15.2)
[2018-08-15] MEDS: PULMICORT IH SCH ×2 (07:27→19:39)
[2018-08-15] MEDS: BROVANA NEBU IH SCH ×2 (07:27→19:40)
--- NOTE | 2018-08-15 09:27 | Progress Note ---
Addendum entered and electronically signed by ASHTYN-EULALIO DOWNING MD 08/15/18 10:22: Patient is S/P Tracheostomy and PEG placement. Original Note: <CLAYKELSI SMITH - Last Filed: 08/15/18 10:17> Assessment and Plan cont current cardiac meds, awaiting ltac. The patient has been seen in conjunction with Dr. Downing who agrees with the assessment and plan of care. - Patient Problems (1) Atrial fibrillation with RVR Current Visit: Yes Status: Acute (2) Acute respiratory failure Current Visit: Yes Status: Acute Qualifiers: Respiratory failure complication: hypoxia Qualified Code(s): J96.01 - Acute respiratory failure with hypoxia (3) COPD (chronic obstructive pulmonary disease) Current Visit: Yes Status: Chronic (4) Pneumonia Current Visit: Yes Status: Acute (5) Nonobstructive atherosclerosis of coronary artery Current Visit: Yes Status: Chronic (6) Hypertension Current Visit: Yes Status: Chronic Qualifiers: Hypertension type: essential hypertension Qualified Code(s): I10 - Essential (primary) hypertension (7) Hyperlipemia Current Visit: Yes Status: Chronic Qualifiers: Hyperlipidemia type: Mixed hyperlipidemia (8) Peripheral vascular disease Current Visit: Yes Status: Chronic (9) CARLEE (acute kidney injury) Current Visit: Yes Status: Resolved (10) Bacteremia Current Visit: Yes Status: Acute (11) Sepsis Current Visit: Yes Status: Acute Qualifiers: Sepsis type: sepsis due to unspecified organism Qualified Code(s): A41.9 - Sepsis, unspecified organism Subjective Date of service: 08/15/18 Principal diagnosis: Acute hypoxemic respiratory failure; A-fib with RVR; Possible CHF; H/O DVT Interval history: pt trached, no apparent distress, in SR with freq PACs on telemetry. Objective Last Vital Signs Temp 99 F 08/15/18 08:00 Pulse 73 08/15/18 08:30 Resp 20 08/15/18 08:30 BP 101/52 08/15/18 08:30 Pulse Ox 99 08/15/18 08:30 - Physical Examination General: No Apparent Distress, Other (tracheostomy in place. Patient is alert and appears comfortable) HEENT: Positive: EOMI, Normocephaly, Mucus Membranes Moist Neck: Positive: neck supple, trachea midline. Negative: JVD/HJR Cardiac: Positive: Reg Rate and Rhythm, S1/S2 Lungs: Positive: Decreased Breath Sounds Neuro: Positive: Grossly Intact Abdomen: Positive: Soft, Active Bowel Sounds Skin: Positive: Clear. Negative: Rash, Wound Musculoskeletal: No Fluid Collection, Normal Range of Motion Extremities: Present: upper extr. pulses, lower extr. pulses. Absent: edema - Labs and Meds CBC 08/14/18 08/15/18 Range/Units 21:55 03:12 WBC 13.3 H (4.5-11.0) K/mm3 RBC 2.79 L (3.65-5.03) M/mm3 Hgb 9.3 L 8.4 L (11.8-15.2) gm/dl Hct 28.6 L 25.7 L (35.5-45.6) % Plt Count 318 293 (140-440) K/mm3 - Imaging and Cardiology EKG: report reviewed, image reviewed Echo: report reviewed ( 07/27/2018 EF 60-65%, asymmetric septal hypertrophy, mild TR. 05/2017 showed EF 55-60%, grade 1 diastolic dysfunction, mild TR, RVSP 22mmHg. 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 Treat medically. ) - Allied health notes Allied health notes reviewed: RT <EULALIO CASTRO N - Last Filed: 08/15/18 10:21> Assessment and Plan - Patient Problems (1) CARLEE (acute kidney injury) Current Visit: Yes Status: Resolved (2) Acidosis Current Visit: Yes Status: Resolved (3) Acute respiratory failure Current Visit: Yes Status: Acute Qualifiers: Respiratory failure complication: hypoxia Qualified Code(s): J96.01 - Acute respiratory failure with hypoxia (4) Atrial fibrillation Current Visit: Yes Status: Resolved Qualifiers: Atrial fibrillation type: persistent Qualified Code(s): I48.1 - Persistent atrial fibrillation (5) CHF (congestive heart failure) Current Visit: Yes Status: Acute Qualifiers: Heart failure type: systolic Heart failure chronicity: acute Qualified Code(s): I50.21 - Acute systolic (congestive) heart failure (6) Hematuria Current Visit: Yes Status: Resolved (7) Lactic acid acidosis Current Visit: Yes Status: Resolved (8) Pneumonia Current Visit: Yes Status: Acute (9) SIRS (systemic inflammatory response syndrome) Current Visit: Yes Status: Chronic (10) COPD (chronic obstructive pulmonary disease) Current Visit: Yes Status: Chronic (11) Hyperlipemia Current Visit: Yes Status: Chronic Qualifiers: Hyperlipidemia type: Mixed hyperlipidemia (12) Hypertension Current Visit: Yes Status: Chronic Qualifiers: Hypertension type: essential hypertension Qualified Code(s): I10 - Essential (primary) hypertension (13) Nonobstructive atherosclerosis of coronary artery Current Visit: Yes Status: Chronic (14) Peripheral vascular disease Current Visit: Yes Status: Chronic (15) Acute blood loss anemia Current Visit: No Status: Acute (16) COPD exacerbation Current Visit: No Status: Acute (17) Cavitary pneumonia Current Visit: No Status: Acute (18) Respiratory failure Current Visit: No Status: Acute (19) S/P vascular surgery Current Visit: No Status: Acute (20) Atherosclerosis of [place] arteries of the extremities with intermittent claudication Current Visit: No Status: Chronic (21) Status post tracheostomy Current Visit: Yes Status: Acute (22) S/P percutaneous endoscopic gastrostomy (PEG) tube placement Current Visit: Yes Status: Acute Objective Vital Signs Temp Pulse Pulse Pulse Resp Resp Resp 08/15/18 08:30 73 20 08/15/18 08:00 99 F 73 21 08/15/18 07:43 08/15/18 07:28 75 76 20 20 08/15/18 07:00 71 16 08/15/18 06:00 75 22 08/15/18 05:00 71 22 08/15/18 04:00 99.2 F 101 H 26 H 08/15/18 03:00 95 H 24 08/15/18 02:00 126 H 22 08/15/18 01:00 142 H 19 08/15/18 00:00 101.7 F H 142 H 22 08/14/18 23:38 08/14/18 23:30 87 25 H 08/14/18 23:00 147 H 29 H 08/14/18 22:36 145 H 28 H 08/14/18 22:00 94 H 25 H 08/14/18 21:00 92 H 18 08/14/18 20:00 99.6 F 99 H 34 H 08/14/18 19:57 96 H 30 H 08/14/18 19:50 100 H 08/14/18 19:00 96 H 14 08/14/18 18:00 93 H 26 H 08/14/18 17:00 97 H 32 H 08/14/18 16:42 87 15 08/14/18 16:41 08/14/18 16:00 99.8 F H 94 H 14 08/14/18 15:00 99.8 F H 84 11 L 08/14/18 14:00 78 13 08/14/18 13:00 75 13 08/14/18 12:00 99.3 F 78 15 08/14/18 11:23 77 13 08/14/18 11:00 86 12 BP Pulse Ox Pulse Ox 08/15/18 08:30 101/52 99 08/15/18 08:00 101/52 99 08/15/18 07:43 97 08/15/18 07:28 08/15/18 07:00 105/54 99 08/15/18 06:00 101/52 97 08/15/18 05:00 93/52 98 08/15/18 04:00 102/54 99 08/15/18 03:00 100/53 98 08/15/18 02:00 118/67 97 08/15/18 01:00 123/74 94 08/15/18 00:00 121/68 96 08/14/18 23:38 97 08/14/18 23:30 117/63 142 H 08/14/18 23:00 117/63 95 08/14/18 22:36 121/68 95 08/14/18 22:00 135/61 96 08/14/18 21:00 143/63 100 08/14/18 20:00 143/63 96 08/14/18 19:57 08/14/18 19:50 125/109 08/14/18 19:00 132/83 98 08/14/18 18:00 142/83 97 08/14/18 17:00 142/83 96 08/14/18 16:42 142/49 97 08/14/18 16:41 96 08/14/18 16:00 143/63 97 08/14/18 15:00 133/55 97 08/14/18 14:00 99/60 98 08/14/18 13:00 99/60 97 08/14/18 12:00 99/60 94 08/14/18 11:23 110/62 97 08/14/18 11:00 153/71 97 - Labs and Meds CBC 08/14/18 08/15/18 Range/Units 21:55 03:12 WBC 13.3 H (4.5-11.0) K/mm3 RBC 2.79 L (3.65-5.03) M/mm3 Hgb 9.3 L 8.4 L (11.8-15.2) gm/dl Hct 28.6 L 25.7 L (35.5-45.6) % Plt Count 318 293 (140-440) K/mm3
[2018-08-15] MEDS: SODIUM CHLORIDE FLUSH SYRINGE 10 ML IV SCH (09:46)
[2018-08-15] MEDS: ELIQUIS PO SCH ×2 (09:46→22:03)
[2018-08-15] MEDS: PEPCID PO SCH ×2 (09:47→22:03)
[2018-08-15] MEDS: CORDARONE PO SCH ×2 (09:47→22:03)
[2018-08-15] MEDS: VITAMIN B-12 PO SCH (09:47)
[2018-08-15] MEDS: PRAVACHOL PO SCH (09:47)
--- NOTE | 2018-08-15 11:42 | Progress Note ---
Assessment and Plan Assessment and plan: Sepsis. Previous Blood cultures reveal Streptococcus anginosus. New sepsis, fever with leucocytosis: Unclear etiology. UA without infection, CXR unchanged, WBC stable to slightly improving, blood cultures negative thus far. Continue to monitor off abx for now. Acute kidney injury. Etiology secondary to above. Continue to monitor creatinine. Left lower lobe pneumonia. Continue antibiotics and follow chest x-ray. Sputum culture revealed Pseudomonas and MSSA Acute hypoxemic respiratory failure. Etiology secondary to above. Continue on mechanical ventilation and weaning per pulmonary. Patient is status post trach and PEG on 08/11/18. Patient tolerating CPAP this morning. Atrial fibrillation. Continue amiodarone and diltiazem. Cardiology following. REGAN negative. Cont. Eliquis Acute renal failure. Etiology likely secondary to sepsis/ATN. Renal ultrasound unremarkable. COPD exacerbation. Continue bronchodilators/nebulizers. IV steroids. Hypertension. Resume antihypertensive medications as needed. Hyperlipidemia. Peripheral vascular disease. The high probability of a clinically significant, sudden or life threatening deterioration of the [respiratory] system(s) required my full and direct attention, intervention and personal management. The aggregate critical care time was [34] minutes. This time is in addition to time spent performing reported procedures but includes the following: [x] Data Review and interpretation [x] Patient assessment and monitoring of vital signs [x] Documentation [x] Medication orders and management History Interval history: 73 YO Male with H/O COPD, PVD, HTN, HLD, Seizure Disorder, Skin Cancer presents to ED for evaluation. Pt states that he has experienced shortness and chest p alpitations over the past 2 days with worsening symptoms over the past 1 day. Pt acknowledges decreased exercise tolerance, as well as dyspnea on exertion. Pt was seen and evaluated by his biomed tech today and was sent to [facility] ED for further care and evaluation. Pt denies fever, chills, leg swelling, calf pain, CP with deep breathing, hemoptysis, Prolonged air/car travel, or immobility, Back Pain, Syncope, Lightheadedness, recent ill contacts, unintentional weight loss, night sweats, or bone pain. Pt seen and evaluated in ED and found to have Atrial Fib with RVR refractory to cardizem drip, but improved with Amiodarone Drip, Acute Hypoxemic Respiratory Failure, SIRS. Pt admitted to ICU. The patient later after admission had further decompensation with respiratory distress. Patient reportedly was satting 60-70% on a nonrebreather and had to be emergently intubated. Hospitalist Physical - Constitutional Vitals: Temp Pulse Resp BP Pulse Ox 99 F 73 20 101/52 99 08/15/18 08:00 08/15/18 08:30 08/15/18 08:30 08/15/18 08:30 08/15/18 08:30 General appearance: Present: other (intubated on mechanical ventilation) - EENT Eyes: Present: PERRL, EOM intact ENT: hearing intact, clear oral mucosa, dentition normal - Neck Neck: Present: supple, normal ROM - Respiratory Respiratory effort: normal Respiratory: bilateral: CTA - Cardiovascular Rhythm: regular Heart Sounds: Present: S1 & S2. Absent: gallop, rub - Extremities Extremities: no ischemia, No edema, Full ROM - Abdominal General gastrointestinal: soft, non-tender, non-distended, normal bowel sounds - Integumentary Integumentary: Present: clear, warm, dry - Neurologic Neurologic: CNII-XII intact, moves all extremities Results - Labs CBC & Chem 7: 08/15/18 03:12 08/14/18 05:22 Labs: Laboratory Last Values WBC 13.3 K/mm3 (4.5-11.0) H 08/14/18 21:55 RBC 2.79 M/mm3 (3.65-5.03) L 08/14/18 21:55 Hgb 8.4 gm/dl (11.8-15.2) L 08/15/18 03:12 Hct 25.7 % (35.5-45.6) L 08/15/18 03:12 MCV 102 fl (84-94) H 08/14/18 21:55 MCH 33 pg (28-32) H 08/14/18 21:55 MCHC 33 % (32-34) 08/14/18 21:55 RDW 16.6 % (13.2-15.2) H 08/14/18 21:55 Plt Count 293 K/mm3 (140-440) 08/15/18 03:12 Lymph % (Auto) 5.1 % (13.4-35.0) L 08/11/18 Unknown [place] % (Auto) 9.5 % (0.0-7.3) H 08/11/18 Unknown Eos % (Auto) 0.3 % (0.0-4.3) 08/11/18 Unknown Baso % (Auto) 0.3 % (0.0-1.8) 08/11/18 Unknown Lymph # 0.6 K/mm3 (1.2-5.4) L 08/11/18 Unknown [place] # 1.2 K/mm3 (0.0-0.8) H 08/11/18 Unknown Eos # 0.0 K/mm3 (0.0-0.4) 08/11/18 Unknown Baso # 0.0 K/mm3 (0.0-0.1) 08/11/18 Unknown Add Manual Diff Complete 08/08/18 02:09 Total Counted 100 08/08/18 02:09 Seg Neutrophils % 84.8 % (40.0-70.0) H 08/11/18 Unknown Seg Neuts % (Manual) 73.0 % (40.0-70.0) H 08/08/18 02:09 Band Neutrophils % 5.0 % 08/08/18 02:09 Lymphocytes % (Manual) 9.0 % (13.4-35.0) L 08/08/18 02:09 Reactive Lymphs % (Man) 0 % 08/08/18 02:09 Monocytes % (Manual) 10.0 % (0.0-7.3) H 08/08/18 02:09 Eosinophils % (Manual) 0 % (0.0-4.3) 08/08/18 02:09 Basophils % (Manual) 0 % (0.0-1.8) 08/08/18 02:09 Metamyelocytes % 3.0 % 08/08/18 02:09 Myelocytes % 0 % 08/08/18 02:09 Promyelocytes % 0 % 08/08/18 02:09 Blast Cells % 0 % 08/08/18 02:09 Nucleated RBC % Not Reportable 08/08/18 02:09 Seg Neutrophils # 10.3 K/mm3 (1.8-7.7) H 08/11/18 Unknown Seg Neutrophils # Man 10.7 K/mm3 (1.8-7.7) H 08/08/18 02:09 Band Neutrophils # 0.7 K/mm3 08/08/18 02:09 Lymphocytes # (Manual) 1.3 K/mm3 (1.2-5.4) 08/08/18 02:09 Abs React Lymphs (Man) 0.0 K/mm3 08/08/18 02:09 Monocytes # (Manual) 1.5 K/mm3 (0.0-0.8) H 08/08/18 02:09 Eosinophils # (Manual) 0.0 K/mm3 (0.0-0.4) 08/08/18 02:09 Basophils # (Manual) 0.0 K/mm3 (0.0-0.1) 08/08/18 02:09 Metamyelocytes # 0.4 K/mm3 08/08/18 02:09 Myelocytes # 0.0 K/mm3 08/08/18 02:09 Promyelocytes # 0.0 K/mm3 08/08/18 02:09 Blast Cells # 0.0 K/mm3 08/08/18 02:09 Pathologist Review 07/28/18 06:01 WBC Morphology Not Reportable 08/08/18 02:09 Hypersegmented Neuts Not Reportable 08/08/18 02:09 Hyposegmented Neuts Not Reportable 08/08/18 02:09 Hypogranular Neuts Not Reportable 08/08/18 02:09 Smudge Cells Not Reportable 08/08/18 02:09 Toxic Granulation Not Reportable 08/08/18 02:09 Toxic Vacuolation Not Reportable 08/08/18 02:09 Dohle Bodies Not Reportable 08/08/18 02:09 Pelger-Huet Anomaly Not Reportable 08/08/18 02:09 Janiya Rods Not Reportable 08/08/18 02:09 Platelet Estimate Appears normal 08/08/18 02:09 Clumped Platelets Not Reportable 08/08/18 02:09 Plt Clumps, EDTA Not Reportable 08/08/18 02:09 Large Platelets Not Reportable 08/08/18 02:09 Giant Platelets Not Reportable 08/08/18 02:09 Platelet Satelliting Not Reportable 08/08/18 02:09 Plt Morphology Comment Not Reportable 08/08/18 02:09 RBC Morphology Not Reportable 08/08/18 02:09 Dimorphic RBCs Not Reportable 08/08/18 02:09 Polychromasia Not Reportable 08/08/18 02:09 Hypochromasia Few 08/08/18 02:09 Poikilocytosis Not Reportable 08/08/18 02:09 Anisocytosis 1+ 08/08/18 02:09 Microcytosis Not Reportable 08/08/18 02:09 Macrocytosis Not Reportable 08/08/18 02:09 Spherocytes Not Reportable 08/08/18 02:09 Pappenheimer Bodies Not Reportable 08/08/18 02:09 Sickle Cells Not Reportable 08/08/18 02:09 Target Cells Not Reportable 08/08/18 02:09 Tear Drop Cells Not Reportable 08/08/18 02:09 Ovalocytes Not Reportable 08/08/18 02:09 Stomatocytes Few 08/08/18 02:09 Helmet Cells Not Reportable 08/08/18 02:09 Lr-[place] Bodies Not Reportable 08/08/18 02:09 [place] Rings Not Reportable 08/08/18 02:09 [place] Cells Not Reportable 08/08/18 02:09 Bite Cells Not Reportable 08/08/18 02:09 Crenated Cell Not Reportable 08/08/18 02:09 Elliptocytes Not Reportable 08/08/18 02:09 Acanthocytes (Spur) Not Reportable 08/08/18 02:09 Rouleaux Not Reportable 08/08/18 02:09 Hemoglobin C Crystals Not Reportable 08/08/18 02:09 Schistocytes Not Reportable 08/08/18 02:09 [place] parasites Not Reportable 08/08/18 02:09 Jigar Bodies Not Reportable 08/08/18 02:09 Hem Pathologist Commnt No 08/08/18 02:09 PT 13.4 Sec. (12.2-14.9) 08/07/18 15:08 INR 0.98 (0.87-1.13) 08/07/18 15:08 APTT 23.2 Sec. (24.2-36.6) L 08/07/18 15:08 D-Dimer 798.17 ng/mlDDU (0-234) H 07/27/18 15:52 Heparin Anti-Xa Level 1.18 U.I./ml (0.3-0.7) H 08/12/18 14:56 POC ABG pH 7.453 (7.35-7.45) H 08/13/18 09:28 POC ABG pCO2 47.5 (35-45) H 08/13/18 09:28 POC ABG pO2 84 (80-105) 08/13/18 09:28 POC ABG HCO3 33.3 08/13/18 09:28 POC ABG Total CO2 35 08/13/18 09:28 POC ABG O2 Sat 97 08/13/18 09:28 POC ABG Base Excess 9 08/13/18 09:28 FiO2 45 % 08/13/18 09:28 Sodium 140 mmol/L (137-145) 08/14/18 05:22 Potassium 3.7 mmol/L (3.6-5.0) 08/14/18 05:22 Chloride 99.3 mmol/L (98-107) 08/14/18 05:22 Carbon Dioxide 30 mmol/L (22-30) 08/14/18 05:22 Anion Gap 14 mmol/L 08/14/18 05:22 BUN 11 mg/dL (9-20) 08/14/18 05:22 Creatinine 0.5 mg/dL (0.8-1.5) L 08/14/18 05:22 Estimated GFR > 60 ml/min 08/14/18 05:22 BUN/Creatinine Ratio 22 % 08/14/18 05:22 Glucose 125 mg/dL (75-100) H 08/14/18 05:22 POC Glucose 133 (70-105) H 08/15/18 09:55 Lactic Acid 1.30 mmol/L (0.7-2.0) 08/03/18 16:48 Calcium 8.7 mg/dL (8.4-10.2) 08/14/18 05:22 Phosphorus 2.80 mg/dL (2.5-4.5) 08/06/18 05:17 Magnesium 2.30 mg/dL (1.7-2.3) 08/06/18 05:17 Total Bilirubin 1.30 mg/dL (0.1-1.2) H 07/27/18 12:59 AST 15 units/L (5-40) 07/27/18 12:59 ALT 16 units/L (7-56) 07/27/18 12:59 Alkaline Phosphatase 62 units/L (35-129) 07/27/18 12:59 Troponin T < 0.010 ng/mL (0.00-0.029) 07/27/18 12:59 C-Reactive Protein 2.30 mg/dL (0.00-1.30) H 08/03/18 16:48 NT-Pro-B Natriuret Pep 3913 pg/mL (0-900) H 07/27/18 12:59 Total Protein 6.2 g/dL (6.3-8.2) L 07/27/18 12:59 Albumin 3.6 g/dL (3.9-5) L 07/27/18 12:59 Albumin/Globulin Ratio 1.4 % 07/27/18 12:59 Triglycerides 64 mg/dL (2-149) 08/08/18 14:02 TSH 1.180 mlU/mL (0.270-4.200) 07/27/18 15:52 Free T4 1.28 ng/dL (0.76-1.46) 07/27/18 15:52 Urine Color Yellow (Yellow) 08/11/18 12:50 Urine Turbidity Clear (Clear) 08/11/18 12:50 Urine pH 6.0 (5.0-7.0) 08/11/18 12:50 Ur Specific [place] 1.015 (1.003-1.030) 08/11/18 12:50 Urine Protein <15 mg/dl mg/dL (Negative) 08/11/18 12:50 Urine Glucose (UA) 50 mg/dL (Negative) 08/11/18 12:50 Urine Ketones Neg mg/dL (Negative) 08/11/18 12:50 Urine Blood Neg (Negative) 08/11/18 12:50 Urine Nitrite Neg (Negative) 08/11/18 12:50 Urine Bilirubin Neg (Negative) 08/11/18 12:50 Urine Urobilinogen 4.0 mg/dL (<2.0) 08/11/18 12:50 Ur Leukocyte Esterase Neg (Negative) 08/11/18 12:50 Urine WBC (Auto) 2.0 /HPF (0.0-6.0) 08/11/18 12:50 Urine RBC (Auto) 2.0 /HPF (0.0-6.0) 08/11/18 12:50 U Epithel Cells (Auto) 2.0 /HPF (0-13.0) 07/29/18 09:24 Urine Bacteria (Auto) 1+ /HPF (Negative) 08/11/18 12:50 Urine Mucus Few /HPF 08/11/18 12:50 Urine Yeast ([place]) 1+ /HPF 07/29/18 09:24 Urine Creatinine 72.3 mg/dL (0.1-20.0) H 07/29/18 09:24 Urine Sodium 12 mmol/L 07/29/18 09:24 Random Vancomycin 9.2 ug/mL (0-40.0) 07/29/18 04:21 Nutrition/Malnutrition Assess - Dietary Evaluation Nutrition/Malnutrition Findings: Nutrition Notes Start: 07/28/18 10:54 Freq: Status: Active Protocol: Document 08/10/18 15:05 OL (Rec: 08/10/18 15:09 OL [id number]) Nutrition Notes Initial or Follow up Reassessment Current Diagnoses Acute Kidney Injury COPD Sepsis Hypertension Heart Failure Respiratory Failure Other Pertinent Diagnosis Hx of Skin Cancer Current Diet Nepro at 50ml/hr Labs/Tests BUN 26 Cr 0.5 Medications propofol at 5.062mL/hr (113.64 lipid kcal ) Height 5 ft 8 in Weight 84.1 kg [place] Body Weight (lbs) 154.0 BMI 28.1 Subjective/Other Information Nepro on hold at time of visit 2/2 pt. having PEG placed. TF to restart later this afternoon. Per RN, pt. had been tolerating TF well at goal rate prior to PEG placement. Burn Absent Trauma Absent #1 Nutrition Diagnoses Inadequate oral intake Diagnosis Progress(for reassessment Continues documentation) Is patient on ventilator? Yes Is Patient Ambulatory and/or Out of Bed No REE-([place]-St[place] Jeor-confined to bed) [phone] Calculation Used for Recommendations [place] Jeor Additional Notes protein (1.2-2g/kg): 101-168g fluid: 1mL/kcal Nutrition Intervention Change Diet Order: Continue TF Nutrition Support: Nepro at 50mL/hr 250 mL free water flush q4h or per MD. Kcal 2,160 Protein (gm) 97 Fluid (mL) 872 Goal #1 TF tolerance and rate Goal #2 Meet at least 80% of kcal needs and 80-100% of protein needs. Follow-Up By: 08/16/18 Additional Comments Peg and Trach done. Patient remain in stable condition
--- NOTE | 2018-08-15 12:09 | Progress Note ---
Assessment and Plan Acute hypoxemic respiratory failure, on mechanical ventilatory support. Atrial fibrillation with rapid ventricular response. Possible congestive heart failure with an acute exacerbation. 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 Elevated D-dimer. Leukocytosis. Sepsis syndrome with hypotension and fevers this morning. Chronic obstructive lung disease with an acute exacerbation. Hypernatremia Peripheral vascular disease. Mixed acidosis, respiratory and metabolic. Acute kidney injury. Lactic acidosis. Elevated BNP level of 3913. History of hypertension. History of arthritis. - continue daily SBT's as tolerated now s/post tracheostomy - ABG on t-piece once tolerating - continue seroquel at increased dose - repeat CBC prn - hypernatremia resolved - continue Lantus insulin with SSI for glycemic control - tapered off solumedrol - VAP bundle addressed - titrate sedatives for RASS 0 to -1 - PT/OT evaluation ongoing (up in chair daily) - continue enteral nutrition as tolerated - continue supplemental oxygen to keep sats >/= 90% - aspiration precautions - continue bronchodilators with routine trach care and pulmonary hygiene per RT - continue therapeutic anticoagulation - continue stress ulcer prophylaxis - continue Antibiotics to complete course - continue mobility protocol for pressure ulcer prevention - continue pother care per attending / other consultants .... re-evaluate in am & prn ... care plan discussed with patient and caregiver in room FULL CODE STATUS CONDITION: CRITICAL The high probability of a clinically significant, sudden or life-threatening deterioration of the [respiratory, cardiovascular, renal] system(s) required my full and direct attention, intervention and personal management. The aggregate critical care time was [32] minutes without overlap. Time includes spent on; [x] Data Review and interpretation [x] Patient assessment and monitoring of vital signs [x] Documentation [x] Medication orders and management Subjective Date of service: 08/15/18 Principal diagnosis: Acute hypoxemic respiratory failure; A-fib with RVR; Possible CHF; H/O DVT Interval history: Patient is seen today for: Acute hypoxemic respiratory failure on MVS; Atrial fibrillation with RVR; Possible congestive heart failure with an acute exacerbation; History of deep venous thrombosis; Elevated D-dimer. Seen and examined at bedside; 24hour events reviewed; nursing and respiratory care staff consulted; no adverse overnight events reported to me; remains on MVS; more coherent and less agitated overall; denies acute chest pains or palpitations; on PSV trial and tolerating well; No N/V/F/C; no tracheostomy dysfunction Objective Vital Signs - 12hr 08/15/18 08/15/18 08/15/18 01:00 02:00 03:00 Temperature Pulse Rate 142 H 126 H 95 H Pulse Rate [ Anterior Bilateral Throughout] Pulse Rate [ Bilateral] Respiratory 19 22 24 Rate Respiratory Rate [Anterior Bilateral Throughout] Respiratory Rate [Bilateral ] Blood Pressure 123/74 118/67 100/53 O2 Sat by Pulse 94 97 98 Oximetry O2 Sat by Pulse Oximetry [ Assessment] 08/15/18 08/15/18 08/15/18 04:00 05:00 06:00 Temperature 99.2 F Pulse Rate 101 H 71 75 Pulse Rate [ Anterior Bilateral Throughout] Pulse Rate [ Bilateral] Respiratory 26 H 22 22 Rate Respiratory Rate [Anterior Bilateral Throughout] Respiratory Rate [Bilateral ] Blood Pressure 102/54 93/52 101/52 O2 Sat by Pulse 99 98 97 Oximetry O2 Sat by Pulse Oximetry [ Assessment] 08/15/18 08/15/18 08/15/18 07:00 07:28 07:43 Temperature Pulse Rate 71 Pulse Rate [ 75 Anterior Bilateral Throughout] Pulse Rate [ 76 Bilateral] Respiratory 16 Rate Respiratory 20 Rate [Anterior Bilateral Throughout] Respiratory 20 Rate [Bilateral ] Blood Pressure 105/54 O2 Sat by Pulse 99 Oximetry O2 Sat by Pulse 97 Oximetry [ Assessment] 08/15/18 08/15/18 08:00 08:30 Temperature 99 F Pulse Rate 73 73 Pulse Rate [ Anterior Bilateral Throughout] Pulse Rate [ Bilateral] Respiratory 21 20 Rate Respiratory Rate [Anterior Bilateral Throughout] Respiratory Rate [Bilateral ] Blood Pressure 101/52 101/52 O2 Sat by Pulse 99 99 Oximetry O2 Sat by Pulse Oximetry [ Assessment] Constitutional: appears uncomfortable, other (elderly looking CM, normocephalic and atraumatic with normal respiratory effort) Eyes: non-icteric ENT: oropharynx moist, other (s/p tracheostomy) Neck: supple, no lymphadenopathy, no JVD, other (No thyromegaly) Effort: mildly labored Ascultation: Bilateral: diminished breath sounds, rhonchi Percussion: Bilateral: not dull Cardiovascular: irregular rhythm, other (+ systolic murmur) Gastrointestinal: hypoactive bowel sounds, soft, non-tender, non-distended, other (No palpable HSM) Integumentary: rash, other (upper extremity edema) Extremities: no cyanosis, pink and warm, pulses normal, no ischemia or petechiae Neurologic: normal mental status, non-focal exam (grossly), pupils equal and round, other (moves all extemities) Psychiatric: mood appropriate, affect normal CBC and BMP: 08/16/18 11:06 08/14/18 05:22 ABG, PT/INR, D-dimer: ABG POC ABG pH 7.453 (7.35-7.45) H 08/13/18 09:28 POC ABG pCO2 47.5 (35-45) H 08/13/18 09:28 POC ABG pO2 84 (80-105) 08/13/18 09:28 POC ABG HCO3 33.3 08/13/18 09:28 POC ABG Total CO2 35 08/13/18 09:28 POC ABG O2 Sat 97 08/13/18 09:28 PT/INR, D-dimer PT 13.4 Sec. (12.2-14.9) 08/07/18 15:08 INR 0.98 (0.87-1.13) 08/07/18 15:08 D-Dimer 798.17 ng/mlDDU (0-234) H 07/27/18 15:52 Abnormal lab findings: Abnormal Labs 07/27/18 07/27/18 07/27/18 12:59 12:59 12:59 WBC 15.8 H RBC Hgb Hct MCV 104 H MCH 34 H MCHC RDW 16.3 H Lymph % (Auto) Bell % (Auto) Lymph # Bell # Seg Neutrophils % Seg Neuts % (Manual) 88.0 H Lymphocytes % (Manual) 3.0 L Monocytes % (Manual) Nucleated RBC % Seg Neutrophils # Seg Neutrophils # Man 13.9 H Lymphocytes # (Manual) 0.5 L Monocytes # (Manual) PT 17.0 H INR 1.34 H APTT D-Dimer Heparin Anti-Xa Level POC ABG pH POC ABG pCO2 POC ABG pO2 Sodium Potassium Chloride Carbon Dioxide 21 L BUN 38 H Creatinine 1.6 H Glucose POC Glucose Lactic Acid Calcium Phosphorus Total Bilirubin 1.30 H C-Reactive Protein NT-Pro-B Natriuret Pep 3913 H Total Protein 6.2 L Albumin 3.6 L Urine WBC (Auto) Urine Creatinine 07/27/18 07/27/18 07/27/18 15:52 16:12 17:09 WBC RBC Hgb Hct MCV MCH MCHC RDW Lymph % (Auto) Bell % (Auto) Lymph # Bell # Seg Neutrophils % Seg Neuts % (Manual) Lymphocytes % (Manual) Monocytes % (Manual) Nucleated RBC % Seg Neutrophils # Seg Neutrophils # Man Lymphocytes # (Manual) Monocytes # (Manual) PT 16.0 H INR 1.24 H APTT D-Dimer 798.17 H Heparin Anti-Xa Level POC ABG pH POC ABG pCO2 POC ABG pO2 Sodium Potassium Chloride Carbon Dioxide BUN Creatinine Glucose POC Glucose Lactic Acid 5.00 H* Calcium Phosphorus Total Bilirubin C-Reactive Protein NT-Pro-B Natriuret Pep Total Protein Albumin Urine WBC (Auto) Urine Creatinine 07/27/18 07/27/18 07/27/18 17:59 18:07 21:31 WBC RBC Hgb Hct MCV MCH MCHC RDW Lymph % (Auto) Bell % (Auto) Lymph # Bell # Seg Neutrophils % Seg Neuts % (Manual) Lymphocytes % (Manual) Monocytes % (Manual) Nucleated RBC % Seg Neutrophils # Seg Neutrophils # Man Lymphocytes # (Manual) Monocytes # (Manual) PT INR APTT D-Dimer Heparin Anti-Xa Level POC ABG pH 7.344 L POC ABG pCO2 POC ABG pO2 36 L Sodium Potassium Chloride Carbon Dioxide BUN Creatinine Glucose POC Glucose Lactic Acid 5.20 H* 5.00 H* Calcium Phosphorus Total Bilirubin C-Reactive Protein NT-Pro-B Natriuret Pep Total Protein Albumin Urine WBC (Auto) Urine Creatinine 07/27/18 07/27/18 07/27/18 21:57 22:42 23:26 WBC RBC Hgb Hct MCV MCH MCHC RDW Lymph % (Auto) Bell % (Auto) Lymph # Bell # Seg Neutrophils % Seg Neuts % (Manual) Lymphocytes % (Manual) Monocytes % (Manual) Nucleated RBC % Seg Neutrophils # Seg Neutrophils # Man Lymphocytes # (Manual) Monocytes # (Manual) PT INR APTT D-Dimer Heparin Anti-Xa Level POC ABG pH 7.199 L POC ABG pCO2 62.0 H POC ABG pO2 Sodium Potassium Chloride Carbon Dioxide BUN Creatinine Glucose POC Glucose Lactic Acid 4.70 H* 5.00 H* Calcium Phosphorus Total Bilirubin C-Reactive Protein NT-Pro-B Natriuret Pep Total Protein Albumin Urine WBC (Auto) Urine Creatinine 07/28/18 07/28/18 07/28/18 00:45 05:40 05:58 WBC RBC Hgb Hct MCV MCH MCHC RDW Lymph % (Auto) Bell % (Auto) Lymph # Bell # Seg Neutrophils % Seg Neuts % (Manual) Lymphocytes % (Manual) Monocytes % (Manual) Nucleated RBC % Seg Neutrophils # Seg Neutrophils # Man Lymphocytes # (Manual) Monocytes # (Manual) PT INR APTT D-Dimer Heparin Anti-Xa Level 0.11 L POC ABG pH 7.186 L POC ABG pCO2 60.1 H POC ABG pO2 68 L Sodium Potassium Chloride Carbon Dioxide BUN Creatinine Glucose POC Glucose Lactic Acid 4.70 H* Calcium Phosphorus Total Bilirubin C-Reactive Protein NT-Pro-B Natriuret Pep Total Protein Albumin Urine WBC (Auto) Urine Creatinine 07/28/18 07/28/18 07/28/18 06:01 06:01 07:19 WBC 12.5 H RBC 3.51 L Hgb 11.5 L Hct MCV 104 H MCH 33 H MCHC RDW 16.6 H Lymph % (Auto) Bell % (Auto) Lymph # Bell # Seg Neutrophils % Seg Neuts % (Manual) Lymphocytes % (Manual) Monocytes % (Manual) Nucleated RBC % Seg Neutrophils # Seg Neutrophils # Man Lymphocytes # (Manual) Monocytes # (Manual) PT INR APTT D-Dimer Heparin Anti-Xa Level 0.14 L POC ABG pH POC ABG pCO2 POC ABG pO2 Sodium 135 L Potassium 5.1 H Chloride 95.0 L Carbon Dioxide 21 L BUN 54 H Creatinine 2.6 H D Glucose POC Glucose Lactic Acid Calcium Phosphorus Total Bilirubin C-Reactive Protein NT-Pro-B Natriuret Pep Total Protein Albumin Urine WBC (Auto) Urine Creatinine 07/28/18 07/28/18 07/28/18 07:19 09:20 11:06 WBC RBC Hgb Hct MCV MCH MCHC RDW Lymph % (Auto) Bell % (Auto) Lymph # Bell # Seg Neutrophils % Seg Neuts % (Manual) Lymphocytes % (Manual) Monocytes % (Manual) Nucleated RBC % Seg Neutrophils # Seg Neutrophils # Man Lymphocytes # (Manual) Monocytes # (Manual) PT INR APTT D-Dimer Heparin Anti-Xa Level POC ABG pH 7.266 L POC ABG pCO2 49.7 H POC ABG pO2 74 L Sodium Potassium Chloride Carbon Dioxide BUN Creatinine Glucose POC Glucose Lactic Acid 4.00 H* 3.90 H* Calcium Phosphorus Total Bilirubin C-Reactive Protein NT-Pro-B Natriuret Pep Total Protein Albumin Urine WBC (Auto) Urine Creatinine 07/28/18 07/28/18 07/28/18 15:06 20:45 23:36 WBC RBC Hgb Hct MCV MCH MCHC RDW Lymph % (Auto) Bell % (Auto) Lymph # Bell # Seg Neutrophils % Seg Neuts % (Manual) Lymphocytes % (Manual) Monocytes % (Manual) Nucleated RBC % Seg Neutrophils # Seg Neutrophils # Man Lymphocytes # (Manual) Monocytes # (Manual) PT INR APTT D-Dimer Heparin Anti-Xa Level 0.15 L POC ABG pH POC ABG pCO2 POC ABG pO2 Sodium 134 L Potassium 5.2 H Chloride Carbon Dioxide BUN 58 H Creatinine 2.1 H Glucose 110 H POC Glucose 125 H Lactic Acid Calcium Phosphorus Total Bilirubin C-Reactive Protein NT-Pro-B Natriuret Pep Total Protein Albumin Urine WBC (Auto) Urine Creatinine 07/29/18 07/29/18 07/29/18 01:12 04:21 04:21 WBC RBC 3.21 L Hgb 10.8 L Hct 33.0 L MCV 103 H MCH 34 H MCHC RDW 16.4 H Lymph % (Auto) Bell % (Auto) Lymph # Bell # Seg Neutrophils % Seg Neuts % (Manual) Lymphocytes % (Manual) 11.0 L Monocytes % (Manual) Nucleated RBC % Seg Neutrophils # Seg Neutrophils # Man Lymphocytes # (Manual) 1.0 L Monocytes # (Manual) PT INR APTT D-Dimer Heparin Anti-Xa Level 0.21 L POC ABG pH POC ABG pCO2 POC ABG pO2 Sodium Potassium Chloride Carbon Dioxide BUN 48 H Creatinine 1.6 H Glucose 166 H POC Glucose Lactic Acid Calcium Phosphorus Total Bilirubin C-Reactive Protein NT-Pro-B Natriuret Pep Total Protein Albumin Urine WBC (Auto) Urine Creatinine 07/29/18 07/29/18 07/29/18 05:19 08:16 09:24 WBC RBC Hgb Hct MCV MCH MCHC RDW Lymph % (Auto) Bell % (Auto) Lymph # Bell # Seg Neutrophils % Seg Neuts % (Manual) Lymphocytes % (Manual) Monocytes % (Manual) Nucleated RBC % Seg Neutrophils # Seg Neutrophils # Man Lymphocytes # (Manual) Monocytes # (Manual) PT INR APTT D-Dimer Heparin Anti-Xa Level 0.25 L POC ABG pH POC ABG pCO2 POC ABG pO2 Sodium Potassium Chloride Carbon Dioxide BUN Creatinine Glucose POC Glucose 181 H Lactic Acid Calcium Phosphorus Total Bilirubin C-Reactive Protein NT-Pro-B Natriuret Pep Total Protein Albumin Urine WBC (Auto) 29.0 H Urine Creatinine 07/29/18 07/29/18 07/29/18 09:24 10:00 15:03 WBC RBC Hgb Hct MCV MCH MCHC RDW Lymph % (Auto) Bell % (Auto) Lymph # Bell # Seg Neutrophils % Seg Neuts % (Manual) Lymphocytes % (Manual) Monocytes % (Manual) Nucleated RBC % Seg Neutrophils # Seg Neutrophils # Man Lymphocytes # (Manual) Monocytes # (Manual) PT INR APTT D-Dimer Heparin Anti-Xa Level POC ABG pH POC ABG pCO2 POC ABG pO2 Sodium Potassium Chloride Carbon Dioxide BUN Creatinine Glucose POC Glucose 195 H 167 H Lactic Acid Calcium Phosphorus Total Bilirubin C-Reactive Protein NT-Pro-B Natriuret Pep Total Protein Albumin Urine WBC (Auto) Urine Creatinine 72.3 H 07/29/18 07/29/18 07/30/18 17:51 21:32 01:38 WBC RBC Hgb Hct MCV MCH MCHC RDW Lymph % (Auto) Bell % (Auto) Lymph # Bell # Seg Neutrophils % Seg Neuts % (Manual) Lymphocytes % (Manual) Monocytes % (Manual) Nucleated RBC % Seg Neutrophils # Seg Neutrophils # Man Lymphocytes # (Manual) Monocytes # (Manual) PT INR APTT D-Dimer Heparin Anti-Xa Level POC ABG pH POC ABG pCO2 POC ABG pO2 Sodium Potassium Chloride Carbon Dioxide BUN Creatinine Glucose POC Glucose 167 H 217 H 194 H Lactic Acid Calcium Phosphorus Total Bilirubin C-Reactive Protein NT-Pro-B Natriuret Pep Total Protein Albumin Urine WBC (Auto) Urine Creatinine 07/30/18 07/30/18 07/30/18 03:21 05:13 10:18 WBC RBC Hgb Hct MCV MCH MCHC RDW Lymph % (Auto) Bell % (Auto) Lymph # Bell # Seg Neutrophils % Seg Neuts % (Manual) Lymphocytes % (Manual) Monocytes % (Manual) Nucleated RBC % Seg Neutrophils # Seg Neutrophils # Man Lymphocytes # (Manual) Monocytes # (Manual) PT INR APTT D-Dimer Heparin Anti-Xa Level POC ABG pH POC ABG pCO2 50.3 H POC ABG pO2 78 L Sodium Potassium Chloride Carbon Dioxide BUN 41 H Creatinine Glucose 202 H POC Glucose 151 H Lactic Acid Calcium Phosphorus Total Bilirubin C-Reactive Protein NT-Pro-B Natriuret Pep Total Protein Albumin Urine WBC (Auto) Urine Creatinine 07/30/18 07/30/18 07/30/18 11:29 16:28 18:12 WBC RBC Hgb Hct MCV MCH MCHC RDW Lymph % (Auto) Bell % (Auto) Lymph # Bell # Seg Neutrophils % Seg Neuts % (Manual) Lymphocytes % (Manual) Monocytes % (Manual) Nucleated RBC % Seg Neutrophils # Seg Neutrophils # Man Lymphocytes # (Manual) Monocytes # (Manual) PT INR APTT D-Dimer Heparin Anti-Xa Level POC ABG pH 7.326 L POC ABG pCO2 53.2 H POC ABG pO2 70 L Sodium Potassium Chloride Carbon Dioxide BUN Creatinine Glucose POC Glucose 247 H 212 H Lactic Acid Calcium Phosphorus Total Bilirubin C-Reactive Protein NT-Pro-B Natriuret Pep Total Protein Albumin Urine WBC (Auto) Urine Creatinine 07/30/18 07/30/18 07/31/18 20:08 21:52 01:59 WBC RBC Hgb Hct MCV MCH MCHC RDW Lymph % (Auto) Bell % (Auto) Lymph # Bell # Seg Neutrophils % Seg Neuts % (Manual) Lymphocytes % (Manual) Monocytes % (Manual) Nucleated RBC % Seg Neutrophils # Seg Neutrophils # Man Lymphocytes # (Manual) Monocytes # (Manual) PT INR APTT D-Dimer Heparin Anti-Xa Level POC ABG pH POC ABG pCO2 POC ABG pO2 Sodium Potassium Chloride Carbon Dioxide BUN Creatinine Glucose POC Glucose 205 H 215 H 242 H Lactic Acid Calcium Phosphorus Total Bilirubin C-Reactive Protein NT-Pro-B Natriuret Pep Total Protein Albumin Urine WBC (Auto) Urine Creatinine 07/31/18 07/31/18 07/31/18 03:14 03:14 04:55 WBC RBC Hgb 10.6 L Hct 33.2 L MCV MCH MCHC RDW Lymph % (Auto) Bell % (Auto) Lymph # Bell # Seg Neutrophils % Seg Neuts % (Manual) Lymphocytes % (Manual) Monocytes % (Manual) Nucleated RBC % Seg Neutrophils # Seg Neutrophils # Man Lymphocytes # (Manual) Monocytes # (Manual) PT INR APTT D-Dimer Heparin Anti-Xa Level POC ABG pH 7.331 L POC ABG pCO2 67.1 H POC ABG pO2 Sodium Potassium Chloride Carbon Dioxide BUN 36 H Creatinine 0.7 L Glucose 242 H POC Glucose Lactic Acid Calcium 10.3 H Phosphorus 2.30 L Total Bilirubin C-Reactive Protein NT-Pro-B Natriuret Pep Total Protein Albumin Urine WBC (Auto) Urine Creatinine 07/31/18 07/31/18 07/31/18 05:37 10:08 14:07 WBC RBC Hgb Hct MCV MCH MCHC RDW Lymph % (Auto) Bell % (Auto) Lymph # Bell # Seg Neutrophils % Seg Neuts % (Manual) Lymphocytes % (Manual) Monocytes % (Manual) Nucleated RBC % Seg Neutrophils # Seg Neutrophils # Man Lymphocytes # (Manual) Monocytes # (Manual) PT INR APTT D-Dimer Heparin Anti-Xa Level POC ABG pH POC ABG pCO2 POC ABG pO2 Sodium Potassium Chloride Carbon Dioxide BUN Creatinine Glucose POC Glucose 193 H 247 H 225 H Lactic Acid Calcium Phosphorus Total Bilirubin C-Reactive Protein NT-Pro-B Natriuret Pep Total Protein Albumin Urine WBC (Auto) Urine Creatinine 07/31/18 07/31/18 08/01/18 18:12 21:34 02:00 WBC RBC Hgb Hct MCV MCH MCHC RDW Lymph % (Auto) Bell % (Auto) Lymph # Bell # Seg Neutrophils % Seg Neuts % (Manual) Lymphocytes % (Manual) Monocytes % (Manual) Nucleated RBC % Seg Neutrophils # Seg Neutrophils # Man Lymphocytes # (Manual) Monocytes # (Manual) PT INR APTT D-Dimer Heparin Anti-Xa Level POC ABG pH POC ABG pCO2 POC ABG pO2 Sodium Potassium Chloride Carbon Dioxide BUN Creatinine Glucose POC Glucose 197 H 204 H 239 H Lactic Acid Calcium Phosphorus Total Bilirubin C-Reactive Protein NT-Pro-B Natriuret Pep Total Protein Albumin Urine WBC (Auto) Urine Creatinine 08/01/18 08/01/18 08/01/18 04:13 04:37 05:29 WBC RBC Hgb Hct MCV MCH MCHC RDW Lymph % (Auto) Bell % (Auto) Lymph # Bell # Seg Neutrophils % Seg Neuts % (Manual) Lymphocytes % (Manual) Monocytes % (Manual) Nucleated RBC % Seg Neutrophils # Seg Neutrophils # Man Lymphocytes # (Manual) Monocytes # (Manual) PT INR APTT D-Dimer Heparin Anti-Xa Level POC ABG pH 7.296 L POC ABG pCO2 81.9 H POC ABG pO2 190 H Sodium 150 H D Potassium Chloride Carbon Dioxide 37 H D BUN 37 H Creatinine 0.6 L Glucose 223 H POC Glucose 219 H Lactic Acid Calcium Phosphorus Total Bilirubin C-Reactive Protein NT-Pro-B Natriuret Pep Total Protein Albumin Urine WBC (Auto) Urine Creatinine 08/01/18 08/01/18 08/01/18 09:28 11:00 17:36 WBC RBC Hgb Hct MCV MCH MCHC RDW Lymph % (Auto) Bell % (Auto) Lymph # Bell # Seg Neutrophils % Seg Neuts % (Manual) Lymphocytes % (Manual) Monocytes % (Manual) Nucleated RBC % Seg Neutrophils # Seg Neutrophils # Man Lymphocytes # (Manual) Monocytes # (Manual) PT INR APTT D-Dimer Heparin Anti-Xa Level POC ABG pH POC ABG pCO2 61.2 H POC ABG pO2 69 L Sodium Potassium Chloride Carbon Dioxide BUN Creatinine Glucose POC Glucose 185 H 234 H Lactic Acid Calcium Phosphorus Total Bilirubin C-Reactive Protein NT-Pro-B Natriuret Pep Total Protein Albumin Urine WBC (Auto) Urine Creatinine 08/01/18 08/02/18 08/02/18 21:54 00:08 00:44 WBC RBC Hgb Hct MCV MCH MCHC RDW Lymph % (Auto) Bell % (Auto) Lymph # Bell # Seg Neutrophils % Seg Neuts % (Manual) Lymphocytes % (Manual) Monocytes % (Manual) Nucleated RBC % Seg Neutrophils # Seg Neutrophils # Man Lymphocytes # (Manual) Monocytes # (Manual) PT INR APTT D-Dimer Heparin Anti-Xa Level 0.77 H POC ABG pH POC ABG pCO2 66.4 H POC ABG pO2 64 L Sodium Potassium Chloride Carbon Dioxide BUN Creatinine Glucose POC Glucose 242 H Lactic Acid Calcium Phosphorus Total Bilirubin C-Reactive Protein NT-Pro-B Natriuret Pep Total Protein Albumin Urine WBC (Auto) Urine Creatinine 08/02/18 08/02/18 08/02/18 02:46 04:45 04:45 WBC RBC Hgb 10.7 L Hct 33.7 L MCV MCH MCHC RDW Lymph % (Auto) Bell % (Auto) Lymph # Bell # Seg Neutrophils % Seg Neuts % (Manual) Lymphocytes % (Manual) Monocytes % (Manual) Nucleated RBC % Seg Neutrophils # Seg Neutrophils # Man Lymphocytes # (Manual) Monocytes # (Manual) PT INR APTT D-Dimer Heparin Anti-Xa Level POC ABG pH POC ABG pCO2 POC ABG pO2 Sodium 152 H Potassium Chloride 108.1 H Carbon Dioxide 39 H BUN 38 H Creatinine 0.6 L Glucose 226 H POC Glucose 206 H Lactic Acid Calcium Phosphorus Total Bilirubin C-Reactive Protein NT-Pro-B Natriuret Pep Total Protein Albumin Urine WBC (Auto) Urine Creatinine 08/02/18 08/02/18 08/02/18 05:31 09:46 14:23 WBC RBC Hgb Hct MCV MCH MCHC RDW Lymph % (Auto) Bell % (Auto) Lymph # Bell # Seg Neutrophils % Seg Neuts % (Manual) Lymphocytes % (Manual) Monocytes % (Manual) Nucleated RBC % Seg Neutrophils # Seg Neutrophils # Man Lymphocytes # (Manual) Monocytes # (Manual) PT INR APTT D-Dimer Heparin Anti-Xa Level 0.91 H POC ABG pH POC ABG pCO2 POC ABG pO2 Sodium Potassium Chloride Carbon Dioxide BUN Creatinine Glucose POC Glucose 214 H 210 H Lactic Acid Calcium Phosphorus Total Bilirubin C-Reactive Protein NT-Pro-B Natriuret Pep Total Protein Albumin Urine WBC (Auto) Urine Creatinine 08/02/18 08/02/18 08/02/18 15:46 17:56 21:50 WBC RBC Hgb Hct MCV MCH MCHC RDW Lymph % (Auto) Bell % (Auto) Lymph # Bell # Seg Neutrophils % Seg Neuts % (Manual) Lymphocytes % (Manual) Monocytes % (Manual) Nucleated RBC % Seg Neutrophils # Seg Neutrophils # Man Lymphocytes # (Manual) Monocytes # (Manual) PT INR APTT D-Dimer Heparin Anti-Xa Level 0.99 H POC ABG pH POC ABG pCO2 POC ABG pO2 Sodium Potassium Chloride Carbon Dioxide BUN Creatinine Glucose POC Glucose 252 H 222 H Lactic Acid Calcium Phosphorus Total Bilirubin C-Reactive Protein NT-Pro-B Natriuret Pep Total Protein Albumin Urine WBC (Auto) Urine Creatinine 08/03/18 08/03/18 08/03/18 02:18 05:21 05:25 WBC RBC Hgb Hct MCV MCH MCHC RDW Lymph % (Auto) Bell % (Auto) Lymph # Bell # Seg Neutrophils % Seg Neuts % (Manual) Lymphocytes % (Manual) Monocytes % (Manual) Nucleated RBC % Seg Neutrophils # Seg Neutrophils # Man Lymphocytes # (Manual) Monocytes # (Manual) PT INR APTT D-Dimer Heparin Anti-Xa Level POC ABG pH POC ABG pCO2 POC ABG pO2 Sodium 151 H Potassium Chloride 107.3 H Carbon Dioxide 37 H BUN 42 H Creatinine 0.6 L Glucose 263 H POC Glucose 241 H 241 H Lactic Acid Calcium Phosphorus Total Bilirubin C-Reactive Protein NT-Pro-B Natriuret Pep Total Protein Albumin Urine WBC (Auto) Urine Creatinine 08/03/18 08/03/18 08/03/18 09:11 12:20 14:33 WBC RBC Hgb Hct MCV MCH MCHC RDW Lymph % (Auto) Bell % (Auto) Lymph # Bell # Seg Neutrophils % Seg Neuts % (Manual) Lymphocytes % (Manual) Monocytes % (Manual) Nucleated RBC % Seg Neutrophils # Seg Neutrophils # Man Lymphocytes # (Manual) Monocytes # (Manual) PT INR APTT D-Dimer Heparin Anti-Xa Level POC ABG pH POC ABG pCO2 POC ABG pO2 Sodium Potassium Chloride Carbon Dioxide BUN Creatinine Glucose POC Glucose 272 H 234 H 247 H Lactic Acid Calcium Phosphorus Total Bilirubin C-Reactive Protein NT-Pro-B Natriuret Pep Total Protein Albumin Urine WBC (Auto) Urine Creatinine 08/03/18 08/03/18 08/04/18 16:48 21:21 01:56 WBC RBC Hgb Hct MCV MCH MCHC RDW Lymph % (Auto) Bell % (Auto) Lymph # Bell # Seg Neutrophils % Seg Neuts % (Manual) Lymphocytes % (Manual) Monocytes % (Manual) Nucleated RBC % Seg Neutrophils # Seg Neutrophils # Man Lymphocytes # (Manual) Monocytes # (Manual) PT INR APTT D-Dimer Heparin Anti-Xa Level POC ABG pH POC ABG pCO2 POC ABG pO2 Sodium Potassium Chloride Carbon Dioxide BUN Creatinine Glucose POC Glucose 180 H 189 H Lactic Acid Calcium Phosphorus Total Bilirubin C-Reactive Protein 2.30 H NT-Pro-B Natriuret Pep Total Protein Albumin Urine WBC (Auto) Urine Creatinine 08/04/18 08/04/18 08/04/18 01:58 05:05 05:05 WBC 25.5 H RBC 3.31 L Hgb 10.8 L Hct 34.1 L MCV 103 H MCH 33 H MCHC RDW 16.0 H Lymph % (Auto) Bell % (Auto) Lymph # Bell # Seg Neutrophils % Seg Neuts % (Manual) Lymphocytes % (Manual) 8.0 L Monocytes % (Manual) Nucleated RBC % 2.0 H Seg Neutrophils # Seg Neutrophils # Man 16.3 H Lymphocytes # (Manual) Monocytes # (Manual) 1.0 H PT INR APTT D-Dimer Heparin Anti-Xa Level 0.79 H POC ABG pH POC ABG pCO2 POC ABG pO2 Sodium 148 H Potassium Chloride Carbon Dioxide 36 H BUN 35 H Creatinine 0.6 L Glucose 160 H POC Glucose Lactic Acid Calcium Phosphorus Total Bilirubin C-Reactive Protein NT-Pro-B Natriuret Pep Total Protein Albumin Urine WBC (Auto) Urine Creatinine 08/04/18 08/04/18 08/04/18 05:24 05:33 08:46 WBC RBC Hgb Hct MCV MCH MCHC RDW Lymph % (Auto) Bell % (Auto) Lymph # Bell # Seg Neutrophils % Seg Neuts % (Manual) Lymphocytes % (Manual) Monocytes % (Manual) Nucleated RBC % Seg Neutrophils # Seg Neutrophils # Man Lymphocytes # (Manual) Monocytes # (Manual) PT INR APTT D-Dimer Heparin Anti-Xa Level 0.76 H POC ABG pH POC ABG pCO2 65.7 H POC ABG pO2 63 L Sodium Potassium Chloride Carbon Dioxide BUN Creatinine Glucose POC Glucose 159 H Lactic Acid Calcium Phosphorus Total Bilirubin C-Reactive Protein NT-Pro-B Natriuret Pep Total Protein Albumin Urine WBC (Auto) Urine Creatinine 08/04/18 08/04/18 08/04/18 09:12 15:38 18:20 WBC RBC Hgb Hct MCV MCH MCHC RDW Lymph % (Auto) Bell % (Auto) Lymph # Bell # Seg Neutrophils % Seg Neuts % (Manual) Lymphocytes % (Manual) Monocytes % (Manual) Nucleated RBC % Seg Neutrophils # Seg Neutrophils # Man Lymphocytes # (Manual) Monocytes # (Manual) PT INR APTT D-Dimer Heparin Anti-Xa Level POC ABG pH POC ABG pCO2 POC ABG pO2 Sodium Potassium Chloride Carbon Dioxide BUN Creatinine Glucose POC Glucose 140 H 267 H 252 H Lactic Acid Calcium Phosphorus Total Bilirubin C-Reactive Protein NT-Pro-B Natriuret Pep Total Protein Albumin Urine WBC (Auto) Urine Creatinine 08/04/18 08/05/18 08/05/18 21:17 02:51 04:36 WBC RBC Hgb Hct MCV MCH MCHC RDW Lymph % (Auto) Bell % (Auto) Lymph # Bell # Seg Neutrophils % Seg Neuts % (Manual) Lymphocytes % (Manual) Monocytes % (Manual) Nucleated RBC % Seg Neutrophils # Seg Neutrophils # Man Lymphocytes # (Manual) Monocytes # (Manual) PT INR APTT D-Dimer Heparin Anti-Xa Level POC ABG pH POC ABG pCO2 POC ABG pO2 Sodium Potassium Chloride Carbon Dioxide BUN Creatinine Glucose POC Glucose 181 H 240 H 255 H Lactic Acid Calcium Phosphorus Total Bilirubin C-Reactive Protein NT-Pro-B Natriuret Pep Total Protein Albumin Urine WBC (Auto) Urine Creatinine 08/05/18 08/05/18 08/05/18 04:55 10:21 12:39 WBC 21.8 H RBC 3.18 L Hgb 10.3 L Hct 32.6 L MCV 103 H MCH 33 H MCHC RDW 16.3 H Lymph % (Auto) Bell % (Auto) Lymph # Bell # Seg Neutrophils % Seg Neuts % (Manual) 88.0 H Lymphocytes % (Manual) 4.0 L Monocytes % (Manual) Nucleated RBC % Seg Neutrophils # Seg Neutrophils # Man 19.2 H Lymphocytes # (Manual) 0.9 L Monocytes # (Manual) PT INR APTT D-Dimer Heparin Anti-Xa Level POC ABG pH 7.506 H POC ABG pCO2 56.0 H POC ABG pO2 63 L Sodium Potassium Chloride Carbon Dioxide BUN Creatinine Glucose POC Glucose 227 H Lactic Acid Calcium Phosphorus Total Bilirubin C-Reactive Protein NT-Pro-B Natriuret Pep Total Protein Albumin Urine WBC (Auto) Urine Creatinine 08/05/18 08/05/18 08/05/18 12:39 14:10 17:30 WBC RBC Hgb Hct MCV MCH MCHC RDW Lymph % (Auto) Bell % (Auto) Lymph # Bell # Seg Neutrophils % Seg Neuts % (Manual) Lymphocytes % (Manual) Monocytes % (Manual) Nucleated RBC % Seg Neutrophils # Seg Neutrophils # Man Lymphocytes # (Manual) Monocytes # (Manual) PT INR APTT D-Dimer Heparin Anti-Xa Level < 0.10 L POC ABG pH POC ABG pCO2 POC ABG pO2 Sodium Potassium Chloride 96.8 L Carbon Dioxide 38 H BUN 36 H Creatinine 0.6 L Glucose 218 H POC Glucose 221 H Lactic Acid Calcium Phosphorus Total Bilirubin C-Reactive Protein NT-Pro-B Natriuret Pep Total Protein Albumin Urine WBC (Auto) Urine Creatinine 08/05/18 08/05/18 08/06/18 18:32 23:32 02:26 WBC RBC Hgb Hct MCV MCH MCHC RDW Lymph % (Auto) Bell % (Auto) Lymph # Bell # Seg Neutrophils % Seg Neuts % (Manual) Lymphocytes % (Manual) Monocytes % (Manual) Nucleated RBC % Seg Neutrophils # Seg Neutrophils # Man Lymphocytes # (Manual) Monocytes # (Manual) PT INR APTT D-Dimer Heparin Anti-Xa Level POC ABG pH POC ABG pCO2 POC ABG pO2 Sodium Potassium Chloride Carbon Dioxide BUN Creatinine Glucose POC Glucose 253 H 215 H 227 H Lactic Acid Calcium Phosphorus Total Bilirubin C-Reactive Protein NT-Pro-B Natriuret Pep Total Protein Albumin Urine WBC (Auto) Urine Creatinine 08/06/18 08/06/18 08/06/18 05:17 05:17 05:32 WBC 18.9 H RBC 3.06 L Hgb 10.2 L Hct 31.3 L MCV 102 H MCH 33 H MCHC RDW 16.1 H Lymph % (Auto) Bell % (Auto) Lymph # Bell # Seg Neutrophils % Seg Neuts % (Manual) Lymphocytes % (Manual) Monocytes % (Manual) Nucleated RBC % Seg Neutrophils # Seg Neutrophils # Man Lymphocytes # (Manual) Monocytes # (Manual) PT INR APTT D-Dimer Heparin Anti-Xa Level POC ABG pH 7.468 H POC ABG pCO2 59.5 H POC ABG pO2 64 L Sodium Potassium Chloride Carbon Dioxide 37 H BUN 37 H Creatinine 0.5 L Glucose 226 H POC Glucose Lactic Acid Calcium Phosphorus Total Bilirubin C-Reactive Protein NT-Pro-B Natriuret Pep Total Protein Albumin Urine WBC (Auto) Urine Creatinine 08/06/18 08/06/18 08/06/18 10:11 15:03 17:48 WBC RBC Hgb Hct MCV MCH MCHC RDW Lymph % (Auto) Bell % (Auto) Lymph # Bell # Seg Neutrophils % Seg Neuts % (Manual) Lymphocytes % (Manual) Monocytes % (Manual) Nucleated RBC % Seg Neutrophils # Seg Neutrophils # Man Lymphocytes # (Manual) Monocytes # (Manual) PT INR APTT D-Dimer Heparin Anti-Xa Level POC ABG pH POC ABG pCO2 POC ABG pO2 Sodium Potassium Chloride Carbon Dioxide BUN Creatinine Glucose POC Glucose 207 H 229 H 188 H Lactic Acid Calcium Phosphorus Total Bilirubin C-Reactive Protein NT-Pro-B Natriuret Pep Total Protein Albumin Urine WBC (Auto) Urine Creatinine 08/06/18 08/07/18 08/07/18 22:53 01:55 05:30 WBC RBC Hgb Hct MCV MCH MCHC RDW Lymph % (Auto) Bell % (Auto) Lymph # Bell # Seg Neutrophils % Seg Neuts % (Manual) Lymphocytes % (Manual) Monocytes % (Manual) Nucleated RBC % Seg Neutrophils # Seg Neutrophils # Man Lymphocytes # (Manual) Monocytes # (Manual) PT INR APTT D-Dimer Heparin Anti-Xa Level POC ABG pH POC ABG pCO2 69.6 H POC ABG pO2 64 L Sodium Potassium Chloride Carbon Dioxide BUN Creatinine Glucose POC Glucose 146 H 143 H Lactic Acid Calcium Phosphorus Total Bilirubin C-Reactive Protein NT-Pro-B Natriuret Pep Total Protein Albumin Urine WBC (Auto) Urine Creatinine 08/07/18 08/07/18 08/07/18 09:59 14:16 15:08 WBC RBC Hgb 10.3 L Hct 32.2 L MCV MCH MCHC RDW Lymph % (Auto) Bell % (Auto) Lymph # Bell # Seg Neutrophils % Seg Neuts % (Manual) Lymphocytes % (Manual) Monocytes % (Manual) Nucleated RBC % Seg Neutrophils # Seg Neutrophils # Man Lymphocytes # (Manual) Monocytes # (Manual) PT INR APTT D-Dimer Heparin Anti-Xa Level POC ABG pH POC ABG pCO2 POC ABG pO2 Sodium Potassium Chloride Carbon Dioxide BUN Creatinine Glucose POC Glucose 188 H 223 H Lactic Acid Calcium Phosphorus Total Bilirubin C-Reactive Protein NT-Pro-B Natriuret Pep Total Protein Albumin Urine WBC (Auto) Urine Creatinine 08/07/18 08/07/18 08/07/18 15:08 17:39 22:04 WBC RBC Hgb Hct MCV MCH MCHC RDW Lymph % (Auto) Bell % (Auto) Lymph # Bell # Seg Neutrophils % Seg Neuts % (Manual) Lymphocytes % (Manual) Monocytes % (Manual) Nucleated RBC % Seg Neutrophils # Seg Neutrophils # Man Lymphocytes # (Manual) Monocytes # (Manual) PT INR APTT 23.2 L D-Dimer Heparin Anti-Xa Level POC ABG pH POC ABG pCO2 POC ABG pO2 Sodium Potassium Chloride Carbon Dioxide BUN Creatinine Glucose POC Glucose 208 H 163 H Lactic Acid Calcium Phosphorus Total Bilirubin C-Reactive Protein NT-Pro-B Natriuret Pep Total Protein Albumin Urine WBC (Auto) Urine Creatinine 08/07/18 08/08/18 08/08/18 22:30 01:57 02:09 WBC 14.6 H RBC 2.88 L Hgb 9.5 L Hct 29.9 L MCV 104 H MCH 33 H MCHC RDW 16.8 H Lymph % (Auto) Bell % (Auto) Lymph # Bell # Seg Neutrophils % Seg Neuts % (Manual) 73.0 H Lymphocytes % (Manual) 9.0 L Monocytes % (Manual) 10.0 H Nucleated RBC % Seg Neutrophils # Seg Neutrophils # Man 10.7 H Lymphocytes # (Manual) Monocytes # (Manual) 1.5 H PT INR APTT D-Dimer Heparin Anti-Xa Level 0.25 L POC ABG pH POC ABG pCO2 POC ABG pO2 Sodium Potassium Chloride Carbon Dioxide BUN Creatinine Glucose POC Glucose 120 H Lactic Acid Calcium Phosphorus Total Bilirubin C-Reactive Protein NT-Pro-B Natriuret Pep Total Protein Albumin Urine WBC (Auto) Urine Creatinine 08/08/18 08/08/18 08/08/18 02:09 04:58 05:19 WBC RBC Hgb Hct MCV MCH MCHC RDW Lymph % (Auto) Bell % (Auto) Lymph # Bell # Seg Neutrophils % Seg Neuts % (Manual) Lymphocytes % (Manual) Monocytes % (Manual) Nucleated RBC % Seg Neutrophils # Seg Neutrophils # Man Lymphocytes # (Manual) Monocytes # (Manual) PT INR APTT D-Dimer Heparin Anti-Xa Level POC ABG pH 7.461 H POC ABG pCO2 57.3 H POC ABG pO2 62 L Sodium Potassium Chloride Carbon Dioxide 39 H BUN 29 H Creatinine 0.5 L Glucose 124 H POC Glucose 139 H Lactic Acid Calcium Phosphorus Total Bilirubin C-Reactive Protein NT-Pro-B Natriuret Pep Total Protein Albumin Urine WBC (Auto) Urine Creatinine 08/08/18 08/08/18 08/08/18 10:22 14:52 16:12 WBC RBC Hgb Hct MCV MCH MCHC RDW Lymph % (Auto) Bell % (Auto) Lymph # Bell # Seg Neutrophils % Seg Neuts % (Manual) Lymphocytes % (Manual) Monocytes % (Manual) Nucleated RBC % Seg Neutrophils # Seg Neutrophils # Man Lymphocytes # (Manual) Monocytes # (Manual) PT INR APTT D-Dimer Heparin Anti-Xa Level POC ABG pH POC ABG pCO2 POC ABG pO2 Sodium Potassium Chloride Carbon Dioxide BUN Creatinine Glucose POC Glucose 169 H 149 H 136 H Lactic Acid Calcium Phosphorus Total Bilirubin C-Reactive Protein NT-Pro-B Natriuret Pep Total Protein Albumin Urine WBC (Auto) Urine Creatinine 08/09/18 08/09/18 08/09/18 02:26 03:52 03:52 WBC 15.9 H RBC 2.87 L Hgb 9.6 L Hct 30.7 L MCV 107 H MCH 34 H MCHC 31 L RDW 17.8 H Lymph % (Auto) 3.9 L Bell % (Auto) 8.1 H Lymph # 0.6 L Bell # 1.3 H Seg Neutrophils % 87.1 H Seg Neuts % (Manual) Lymphocytes % (Manual) Monocytes % (Manual) Nucleated RBC % Seg Neutrophils # 13.9 H Seg Neutrophils # Man Lymphocytes # (Manual) Monocytes # (Manual) PT INR APTT D-Dimer Heparin Anti-Xa Level 0.25 L POC ABG pH POC ABG pCO2 POC ABG pO2 Sodium Potassium Chloride Carbon Dioxide BUN Creatinine Glucose POC Glucose 126 H Lactic Acid Calcium Phosphorus Total Bilirubin C-Reactive Protein NT-Pro-B Natriuret Pep Total Protein Albumin Urine WBC (Auto) Urine Creatinine 08/09/18 08/09/18 08/09/18 03:52 05:34 06:48 WBC RBC Hgb Hct MCV MCH MCHC RDW Lymph % (Auto) Bell % (Auto) Lymph # Bell # Seg Neutrophils % Seg Neuts % (Manual) Lymphocytes % (Manual) Monocytes % (Manual) Nucleated RBC % Seg Neutrophils # Seg Neutrophils # Man Lymphocytes # (Manual) Monocytes # (Manual) PT INR APTT D-Dimer Heparin Anti-Xa Level POC ABG pH POC ABG pCO2 57.5 H POC ABG pO2 58 L Sodium Potassium Chloride Carbon Dioxide 39 H BUN 26 H Creatinine 0.5 L Glucose 128 H POC Glucose 171 H Lactic Acid Calcium Phosphorus Total Bilirubin C-Reactive Protein NT-Pro-B Natriuret Pep Total Protein Albumin Urine WBC (Auto) Urine Creatinine 08/09/18 08/09/18 08/09/18 09:28 09:36 13:44 WBC RBC Hgb Hct MCV MCH MCHC RDW Lymph % (Auto) Bell % (Auto) Lymph # Bell # Seg Neutrophils % Seg Neuts % (Manual) Lymphocytes % (Manual) Monocytes % (Manual) Nucleated RBC % Seg Neutrophils # Seg Neutrophils # Man Lymphocytes # (Manual) Monocytes # (Manual) PT INR APTT D-Dimer Heparin Anti-Xa Level 0.26 L POC ABG pH POC ABG pCO2 POC ABG pO2 Sodium Potassium Chloride Carbon Dioxide BUN Creatinine Glucose POC Glucose 183 H 184 H Lactic Acid Calcium Phosphorus Total Bilirubin C-Reactive Protein NT-Pro-B Natriuret Pep Total Protein Albumin Urine WBC (Auto) Urine Creatinine 08/09/18 08/10/18 08/10/18 17:55 04:49 05:20 WBC RBC Hgb Hct MCV MCH MCHC RDW Lymph % (Auto) Bell % (Auto) Lymph # Bell # Seg Neutrophils % Seg Neuts % (Manual) Lymphocytes % (Manual) Monocytes % (Manual) Nucleated RBC % Seg Neutrophils # Seg Neutrophils # Man Lymphocytes # (Manual) Monocytes # (Manual) PT INR APTT D-Dimer Heparin Anti-Xa Level POC ABG pH POC ABG pCO2 59.9 H POC ABG pO2 59 L Sodium Potassium Chloride Carbon Dioxide BUN Creatinine Glucose POC Glucose 148 H 59 L Lactic Acid Calcium Phosphorus Total Bilirubin C-Reactive Protein NT-Pro-B Natriuret Pep Total Protein Albumin Urine WBC (Auto) Urine Creatinine 08/10/18 08/10/18 08/10/18 05:53 17:12 21:17 WBC RBC Hgb Hct MCV MCH MCHC RDW Lymph % (Auto) Bell % (Auto) Lymph # Bell # Seg Neutrophils % Seg Neuts % (Manual) Lymphocytes % (Manual) Monocytes % (Manual) Nucleated RBC % Seg Neutrophils # Seg Neutrophils # Man Lymphocytes # (Manual) Monocytes # (Manual) PT INR APTT D-Dimer Heparin Anti-Xa Level POC ABG pH POC ABG pCO2 POC ABG pO2 Sodium Potassium Chloride Carbon Dioxide BUN Creatinine Glucose POC Glucose 128 H 110 H 109 H Lactic Acid Calcium Phosphorus Total Bilirubin C-Reactive Protein NT-Pro-B Natriuret Pep Total Protein Albumin Urine WBC (Auto) Urine Creatinine 08/11/18 08/11/18 08/11/18 00:54 02:28 04:17 WBC RBC Hgb 7.8 L Hct 24.1 L D MCV MCH MCHC RDW Lymph % (Auto) Bell % (Auto) Lymph # Bell # Seg Neutrophils % Seg Neuts % (Manual) Lymphocytes % (Manual) Monocytes % (Manual) Nucleated RBC % Seg Neutrophils # Seg Neutrophils # Man Lymphocytes # (Manual) Monocytes # (Manual) PT INR APTT D-Dimer Heparin Anti-Xa Level 0.19 L POC ABG pH POC ABG pCO2 POC ABG pO2 Sodium Potassium Chloride Carbon Dioxide BUN Creatinine Glucose POC Glucose 124 H Lactic Acid Calcium Phosphorus Total Bilirubin C-Reactive Protein NT-Pro-B Natriuret Pep Total Protein Albumin Urine WBC (Auto) Urine Creatinine 12/08/11/18 08/11/18 05:10 07:42 10:27 WBC RBC Hgb Hct MCV MCH MCHC RDW Lymph % (Auto) Bell % (Auto) Lymph # Bell # Seg Neutrophils % Seg Neuts % (Manual) Lymphocytes % (Manual) Monocytes % (Manual) Nucleated RBC % Seg Neutrophils # Seg Neutrophils # Man Lymphocytes # (Manual) Monocytes # (Manual) PT INR APTT D-Dimer Heparin Anti-Xa Level 0.20 L POC ABG pH POC ABG pCO2 POC ABG pO2 Sodium Potassium Chloride Carbon Dioxide BUN Creatinine Glucose POC Glucose 150 H 156 H Lactic Acid Calcium Phosphorus Total Bilirubin C-Reactive Protein NT-Pro-B Natriuret Pep Total Protein Albumin Urine WBC (Auto) Urine Creatinine 08/11/18 08/11/18 08/11/18 13:54 15:06 18:13 WBC RBC Hgb Hct MCV MCH MCHC RDW Lymph % (Auto) Bell % (Auto) Lymph # Bell # Seg Neutrophils % Seg Neuts % (Manual) Lymphocytes % (Manual) Monocytes % (Manual) Nucleated RBC % Seg Neutrophils # Seg Neutrophils # Man Lymphocytes # (Manual) Monocytes # (Manual) PT INR APTT D-Dimer Heparin Anti-Xa Level POC ABG pH 7.471 H POC ABG pCO2 45.5 H POC ABG pO2 79 L Sodium Potassium Chloride Carbon Dioxide BUN Creatinine Glucose POC Glucose 177 H 143 H Lactic Acid Calcium Phosphorus Total Bilirubin C-Reactive Protein NT-Pro-B Natriuret Pep Total Protein Albumin Urine WBC (Auto) Urine Creatinine 08/11/18 08/11/18 08/11/18 18:33 21:22 Unknown WBC RBC Hgb Hct MCV MCH MCHC RDW Lymph % (Auto) Bell % (Auto) Lymph # Bell # Seg Neutrophils % Seg Neuts % (Manual) Lymphocytes % (Manual) Monocytes % (Manual) Nucleated RBC % Seg Neutrophils # Seg Neutrophils # Man Lymphocytes # (Manual) Monocytes # (Manual) PT INR APTT D-Dimer Heparin Anti-Xa Level 0.29 L POC ABG pH POC ABG pCO2 POC ABG pO2 Sodium 136 L Potassium Chloride 96.5 L Carbon Dioxide 32 H D BUN Creatinine 0.5 L Glucose 186 H POC Glucose 151 H Lactic Acid Calcium Phosphorus Total Bilirubin C-Reactive Protein NT-Pro-B Natriuret Pep Total Protein Albumin Urine WBC (Auto) Urine Creatinine 08/11/18 08/12/1818 Unknown 02:09 05:29 WBC 12.1 H RBC 2.50 L Hgb 8.2 L Hct 25.7 L MCV 103 H MCH 33 H MCHC RDW 17.0 H Lymph % (Auto) 5.1 L Bell % (Auto) 9.5 H Lymph # 0.6 L Bell # 1.2 H Seg Neutrophils % 84.8 H Seg Neuts % (Manual) Lymphocytes % (Manual) Monocytes % (Manual) Nucleated RBC % Seg Neutrophils # 10.3 H Seg Neutrophils # Man Lymphocytes # (Manual) Monocytes # (Manual) PT INR APTT D-Dimer Heparin Anti-Xa Level POC ABG pH POC ABG pCO2 POC ABG pO2 Sodium Potassium Chloride Carbon Dioxide BUN Creatinine Glucose POC Glucose 159 H 136 H Lactic Acid Calcium Phosphorus Total Bilirubin C-Reactive Protein NT-Pro-B Natriuret Pep Total Protein Albumin Urine WBC (Auto) Urine Creatinine 08/12/18 08/12/18 08/12/18 07:33 09:59 13:59 WBC RBC Hgb Hct MCV MCH MCHC RDW Lymph % (Auto) Bell % (Auto) Lymph # Bell # Seg Neutrophils % Seg Neuts % (Manual) Lymphocytes % (Manual) Monocytes % (Manual) Nucleated RBC % Seg Neutrophils # Seg Neutrophils # Man Lymphocytes # (Manual) Monocytes # (Manual) PT INR APTT D-Dimer Heparin Anti-Xa Level POC ABG pH POC ABG pCO2 POC ABG pO2 Sodium Potassium Chloride Carbon Dioxide BUN Creatinine Glucose POC Glucose 138 H 157 H 167 H Lactic Acid Calcium Phosphorus Total Bilirubin C-Reactive Protein NT-Pro-B Natriuret Pep Total Protein Albumin Urine WBC (Auto) Urine Creatinine 08/12/18 08/12/18 08/12/18 14:31 14:56 17:39 WBC RBC Hgb Hct MCV MCH MCHC RDW Lymph % (Auto) Bell % (Auto) Lymph # Bell # Seg Neutrophils % Seg Neuts % (Manual) Lymphocytes % (Manual) Monocytes % (Manual) Nucleated RBC % Seg Neutrophils # Seg Neutrophils # Man Lymphocytes # (Manual) Monocytes # (Manual) PT INR APTT D-Dimer Heparin Anti-Xa Level 1.18 H POC ABG pH 7.466 H POC ABG pCO2 POC ABG pO2 58 L Sodium Potassium Chloride Carbon Dioxide BUN Creatinine Glucose POC Glucose 168 H Lactic Acid Calcium Phosphorus Total Bilirubin C-Reactive Protein NT-Pro-B Natriuret Pep Total Protein Albumin Urine WBC (Auto) Urine Creatinine 08/12/18 08/13/18 08/13/18 21:38 02:17 05:20 WBC RBC Hgb 8.0 L Hct 24.5 L MCV MCH MCHC RDW Lymph % (Auto) Bell % (Auto) Lymph # Bell # Seg Neutrophils % Seg Neuts % (Manual) Lymphocytes % (Manual) Monocytes % (Manual) Nucleated RBC % Seg Neutrophils # Seg Neutrophils # Man Lymphocytes # (Manual) Monocytes # (Manual) PT INR APTT D-Dimer Heparin Anti-Xa Level POC ABG pH POC ABG pCO2 POC ABG pO2 Sodium Potassium Chloride Carbon Dioxide BUN Creatinine Glucose POC Glucose 168 H 157 H Lactic Acid Calcium Phosphorus Total Bilirubin C-Reactive Protein NT-Pro-B Natriuret Pep Total Protein Albumin Urine WBC (Auto) Urine Creatinine 08/13/18 08/13/18 08/13/18 09:28 10:07 14:09 WBC RBC Hgb Hct MCV MCH MCHC RDW Lymph % (Auto) Bell % (Auto) Lymph # Bell # Seg Neutrophils % Seg Neuts % (Manual) Lymphocytes % (Manual) Monocytes % (Manual) Nucleated RBC % Seg Neutrophils # Seg Neutrophils # Man Lymphocytes # (Manual) Monocytes # (Manual) PT INR APTT D-Dimer Heparin Anti-Xa Level POC ABG pH 7.453 H POC ABG pCO2 47.5 H POC ABG pO2 Sodium Potassium Chloride Carbon Dioxide BUN Creatinine Glucose POC Glucose 177 H 178 H Lactic Acid Calcium Phosphorus Total Bilirubin C-Reactive Protein NT-Pro-B Natriuret Pep Total Protein Albumin Urine WBC (Auto) Urine Creatinine 08/13/18 08/13/18 08/14/18 17:33 21:28 01:58 WBC RBC Hgb Hct MCV MCH MCHC RDW Lymph % (Auto) Bell % (Auto) Lymph # Bell # Seg Neutrophils % Seg Neuts % (Manual) Lymphocytes % (Manual) Monocytes % (Manual) Nucleated RBC % Seg Neutrophils # Seg Neutrophils # Man Lymphocytes # (Manual) Monocytes # (Manual) PT INR APTT D-Dimer Heparin Anti-Xa Level POC ABG pH POC ABG pCO2 POC ABG pO2 Sodium Potassium Chloride Carbon Dioxide BUN Creatinine Glucose POC Glucose 130 H 145 H 161 H Lactic Acid Calcium Phosphorus Total Bilirubin C-Reactive Protein NT-Pro-B Natriuret Pep Total Protein Albumin Urine WBC (Auto) Urine Creatinine 08/14/18 08/14/18 08/14/18 05:22 06:10 09:59 WBC RBC Hgb Hct MCV MCH MCHC RDW Lymph % (Auto) Bell % (Auto) Lymph # Bell # Seg Neutrophils % Seg Neuts % (Manual) Lymphocytes % (Manual) Monocytes % (Manual) Nucleated RBC % Seg Neutrophils # Seg Neutrophils # Man Lymphocytes # (Manual) Monocytes # (Manual) PT INR APTT D-Dimer Heparin Anti-Xa Level POC ABG pH POC ABG pCO2 POC ABG pO2 Sodium Potassium Chloride Carbon Dioxide BUN Creatinine 0.5 L Glucose 125 H POC Glucose 117 H 107 H Lactic Acid Calcium Phosphorus Total Bilirubin C-Reactive Protein NT-Pro-B Natriuret Pep Total Protein Albumin Urine WBC (Auto) Urine Creatinine 08/14/18 08/14/18 08/14/18 14:04 17:49 21:27 WBC RBC Hgb Hct MCV MCH MCHC RDW Lymph % (Auto) Bell % (Auto) Lymph # Bell # Seg Neutrophils % Seg Neuts % (Manual) Lymphocytes % (Manual) Monocytes % (Manual) Nucleated RBC % Seg Neutrophils # Seg Neutrophils # Man Lymphocytes # (Manual) Monocytes # (Manual) PT INR APTT D-Dimer Heparin Anti-Xa Level POC ABG pH POC ABG pCO2 POC ABG pO2 Sodium Potassium Chloride Carbon Dioxide BUN Creatinine Glucose POC Glucose 137 H 150 H 149 H Lactic Acid Calcium Phosphorus Total Bilirubin C-Reactive Protein NT-Pro-B Natriuret Pep Total Protein Albumin Urine WBC (Auto) Urine Creatinine 08/14/18 08/15/18 08/15/18 21:55 01:50 03:12 WBC 13.3 H RBC 2.79 L Hgb 9.3 L 8.4 L Hct 28.6 L 25.7 L MCV 102 H MCH 33 H MCHC RDW 16.6 H Lymph % (Auto) Bell % (Auto) Lymph # Bell # Seg Neutrophils % Seg Neuts % (Manual) Lymphocytes % (Manual) Monocytes % (Manual) Nucleated RBC % Seg Neutrophils # Seg Neutrophils # Man Lymphocytes # (Manual) Monocytes # (Manual) PT INR APTT D-Dimer Heparin Anti-Xa Level POC ABG pH POC ABG pCO2 POC ABG pO2 Sodium Potassium Chloride Carbon Dioxide BUN Creatinine Glucose POC Glucose 186 H Lactic Acid Calcium Phosphorus Total Bilirubin C-Reactive Protein NT-Pro-B Natriuret Pep Total Protein Albumin Urine WBC (Auto) Urine Creatinine 08/15/18 09:55 WBC RBC Hgb Hct MCV MCH MCHC RDW Lymph % (Auto) Bell % (Auto) Lymph # Bell # Seg Neutrophils % Seg Neuts % (Manual) Lymphocytes % (Manual) Monocytes % (Manual) Nucleated RBC % Seg Neutrophils # Seg Neutrophils # Man Lymphocytes # (Manual) Monocytes # (Manual) PT INR APTT D-Dimer Heparin Anti-Xa Level POC ABG pH POC ABG pCO2 POC ABG pO2 Sodium Potassium Chloride Carbon Dioxide BUN Creatinine Glucose POC Glucose 133 H Lactic Acid Calcium Phosphorus Total Bilirubin C-Reactive Protein NT-Pro-B Natriuret Pep Total Protein Albumin Urine WBC (Auto) Urine Creatinine Chest x-ray: image reviewed (Trach in good position) Allied health notes reviewed: RT
--- NOTE | 2018-08-15 16:13 | Progress Note ---
Assessment and Plan Cultures: 07/27/2018 tracheal aspirate culture: Pseudomonas aeruginosa, MSSA 07/28/2018 blood culture: 4 out of 4 bottles positive for Streptococcus anginosus 07/28/2018 fungal blood culture: In progress but no growth thus far 07/29/2018 urine culture: No growth 08/01/2018 blood culture: negative thus far 08/11/2018 blood culture: in process 08/11/2018 urine culture: no growth A/P: 73-year-old male with COPD, peripheral vascular disease, hypertension, hyperlipidemia, seizure disorder admitted with: 1) Streptococcus anginosus bacteremia: 4/4 bottles, present on admission. Source unclear. Patient does have evidence of pneumonia however sputum cultures not concordant and grew pseudomonas aeruginosa and MSSA. REGAN was negative. Pre viously received Ceftriaxone and Vancomycin, followed by Cefepime, completed. 2) Acute respiratory failure secondary to congestive heart failure and pneumonia: completed IV cefepime x 10 days to cover both MSSA and Pseudomonas. now s/p trach and PEG. 3) CARLEE, present on admission, now resolved. 4) New sepsis, fever with leucocytosis: Unclear etiology. UA without infection, CXR unchanged, WBC elevated, blood cultures negative thus far. Will order repeat CXR and sputum culture and start empiric IV Cefepime and assess response. Recs: Will order repeat CXR and sputum culture started empiric IV Cefepime and will assess response Will follow. Rhea Ro MD [facility] C: [phone] O: [phone] F: [phone] Subjective Date of service: 08/15/18 Principal diagnosis: Acute hypoxemic respiratory failure; A-fib with RVR; Possible CHF; H/O DVT Interval history: new fever today. Is up sitting in a chair. Reports some headache, no other complaints. Objective - Exam Narrative Exam: Physical Exam: Constitutional: awake, communicative Head, Ears, Nose: Normocephalic, atraumatic. External ears, nose normal Eyes: Conjunctivae/corneas clear. No icterus. No ptosis. Neck: trach + Oral:no thrush, no ulcers Cardiovascular: S1, S2 normal Respiratory: few scattered rhonchi, no crackles GI: Soft, bowel sounds normal. No peritoneal signs. PEG tube + Musculoskeletal: no pedal edema, no cyanosis. Skin: No rash or abscess Hem/Lymphatic: No palpable cervical or supraclavicular nodes. No lymphangitis Psych: calm, no agitation Neurological: awake, able to communicate, follow commands - Constitutional Vitals: Vital Signs Temp Pulse Resp BP Pulse Ox 98.9 F 87 20 113/52 98 08/15/18 12:00 08/15/18 12:10 08/15/18 12:10 08/15/18 12:10 08/15/18 12:10 Temperature -Last 24 Hours Temperature 98.9 F Temperature 99 F Temperature 99.2 F Temperature 101.7 F Temperature 99.6 F - Labs CBC & Chem 7: 08/15/18 03:12 08/14/18 05:22 Labs: Abnormal lab results 08/14/18 08/14/18 08/14/18 Range/Units 17:49 21:27 21:55 WBC 13.3 H (4.5-11.0) K/mm3 RBC 2.79 L (3.65-5.03) M/mm3 Hgb 9.3 L (11.8-15.2) gm/dl Hct 28.6 L (35.5-45.6) % MCV 102 H (84-94) fl MCH 33 H (28-32) pg RDW 16.6 H (13.2-15.2) % POC Glucose 150 H 149 H (70-105) 08/15/18 08/15/18 08/15/18 Range/Units 01:50 03:12 09:55 WBC (4.5-11.0) K/mm3 RBC (3.65-5.03) M/mm3 Hgb 8.4 L (11.8-15.2) gm/dl Hct 25.7 L (35.5-45.6) % MCV (84-94) fl MCH (28-32) pg RDW (13.2-15.2) % POC Glucose 186 H 133 H (70-105) 08/15/18 Range/Units 13:47 WBC (4.5-11.0) K/mm3 RBC (3.65-5.03) M/mm3 Hgb (11.8-15.2) gm/dl Hct (35.5-45.6) % MCV (84-94) fl MCH (28-32) pg RDW (13.2-15.2) % POC Glucose 142 H (70-105)
[2018-08-15] MEDS: MAXIPIME/NS 2 GM/100 ML 2 GM/100 ML BAG IV SCH ×2 (19:26→22:03)
[2018-08-15 20:08] LABS: Basophils % (Auto) 0.4 % (0.0-1.8); Eosinophils % (Auto) 0.4 % (0.0-4.3); Hematocrit 24.5 % (35.5-45.6); Lymphocytes # (Auto) 0.5 K/mm3 (1.2-5.4); Lymphocytes % (Auto) 4.9 % (13.4-35.0); Mean Corpuscular HGB Conc 33 % (32-34); Mean Corpuscular Volume 103 fl (84-94); Monocytes # (Auto) 0.7 K/mm3 (0.0-0.8); Monocytes % (Auto) 6.2 % (0.0-7.3); Platelet Count 269 K/mm3 (140-440); Red Blood Count 2.38 M/mm3 (3.65-5.03); Red Cell Distribution Width 16.8 % (13.2-15.2)
[2018-08-15] MEDS: LANTUS SUB-Q SCH (22:05)
--- NOTE | 2018-08-16 00:03 | XRay Report ---
FINAL REPORT EXAM: XR CHEST 1V AP HISTORY: fever and leucocytosis. TECHNIQUE: Frontal portable view of the chest Comparison: Chest x-ray dated August 03, 2018 FINDINGS: There has been interval placement of a tracheostomy tube. There is elevation the right hemidiaphragm similar in appearance to the previous study. There are areas of pulmonary consolidation in the right upper lung field and left lung base suggestiv e of pulmonary infiltrates. There is the appearance of pleural effusion or pleural thickening in the right lung apex. The cardiac silhouette appears to be normal size. The thoracic aorta and bony structures are unremarkable. Visualization detail of the thoracic spine i s limited. IMPRESSION: 1. Areas of pulmonary consolidation suggestive of pulmonary infiltrates right upper lung field and le ft lung base. The left lung base pulmonary consolidation was demonstrated on the previous study. The right upper lung field pulmonary consolidation is new in the interval. 2. Loculated pleural effusion versus pleural thickening right lung apex. 3. Interval placement of tracheostomy tube.
[2018-08-16] MEDS: SODIUM CHLORIDE FLUSH SYRINGE 10 ML IV SCH ×4 (00:30→22:09)
[2018-08-16] MEDS: HumaLOG SUB-Q SCH ×3 (02:00→22:06)
[2018-08-16] MEDS: MAXIPIME/NS 2 GM/100 ML 2 GM/100 ML BAG IV SCH ×3 (05:56→22:07)
[2018-08-16] MEDS: BROVANA NEBU IH SCH ×2 (07:54→20:12)
[2018-08-16] MEDS: PULMICORT IH SCH ×2 (07:54→20:12)
[2018-08-16] MEDS: TYLENOL FEEDTUBE PRN (09:01)
[2018-08-16] MEDS: VITAMIN B-12 PO SCH (09:02)
[2018-08-16] MEDS: PRAVACHOL PO SCH (09:03)
[2018-08-16] MEDS: CORDARONE PO SCH ×2 (09:03→22:08)
[2018-08-16] MEDS: PEPCID PO SCH ×2 (09:03→22:08)
[2018-08-16] MEDS: ELIQUIS PO SCH ×2 (09:03→22:07)
--- NOTE | 2018-08-16 12:05 | Progress Note ---
Assessment and Plan Acute hypoxemic respiratory failure, on mechanical ventilatory support. Atrial fibrillation with rapid ventricular response. Possible congestive heart failure with an acute exacerbation. 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 Elevated D-dimer. Leukocytosis. Sepsis syndrome with hypotension and fevers this morning. Chronic obstructive lung disease with an acute exacerbation. Hypernatremia Peripheral vascular disease. Mixed acidosis, respiratory and metabolic. Acute kidney injury. Lactic acidosis. Elevated BNP level of 3913. History of hypertension. History of arthritis. - continue daily SBT's as tolerated now s/post tracheostomy - ABG on t-piece acceptable and continues on t-piece - rest on AC overnight then RTC t-piece as tolerated from tomorrow - continue seroquel at current dose - hypernatremia resolved - continue Lantus insulin with SSI for glycemic control - tapered off solumedrol - VAP bundle addressed - titrate sedatives for RASS 0 to -1 - PT/OT evaluation ongoing (up in chair daily) - continue enteral nutrition as tolerated - continue supplemental oxygen to keep sats >/= 90% - aspiration precautions - continue bronchodilators with routine trach care and pulmonary hygiene per RT - continue therapeutic anticoagulation - continue stress ulcer prophylaxis - continue Antibiotics to complete course - continue mobility protocol for pressure ulcer prevention - continue pother care per attending / other consultants - d/c planning for LTAC care is appropriate .... re-evaluate in am & prn ... care plan discussed with patient and caregiver in room FULL CODE STATUS CONDITION: CRITICAL The high probability of a clinically significant, sudden or life-threatening deterioration of the [respiratory, cardiovascular, renal] system(s) required my full and direct attention, intervention and personal management. The aggregate critical care time was [35] minutes without overlap. Time includes spent on; [x] Data Review and interpretation [x] Patient assessment and monitoring of vital signs [x] Documentation [x] Medication orders and management Subjective Date of service: 08/16/18 Principal diagnosis: Acute hypoxemic respiratory failure; A-fib with RVR; Possible CHF; H/O DVT Interval history: Patient is seen today for: Acute hypoxemic respiratory failure on MVS; Atrial fibrillation with RVR; Possible congestive heart failure with an acute exacerbation; History of deep venous thrombosis; Elevated D-dimer. Seen and examined at bedside; 24hour events reviewed; nursing and respiratory care staff consulted; no adverse overnight events reported to me; remains on MVS; remains more coherent and less agitated overall; up in chair and tolerating t-piece well; smiling and in good spirits; no emesis or overt aspiration; no gross bleeding Objective Vital Signs - 12hr 08/16/18 08/16/18 08/16/18 01:00 02:00 03:00 Temperature Pulse Rate 83 85 87 Pulse Rate [ Anterior Bilateral Throughout] Pulse Rate [ Bilateral] Respiratory 20 20 27 H Rate Respiratory Rate [Anterior Bilateral Throughout] Respiratory Rate [Bilateral ] Blood Pressure 113/58 116/63 113/60 O2 Sat by Pulse 100 98 96 Oximetry O2 Sat by Pulse Oximetry [ Assessment] 08/16/18 08/16/18 08/16/18 03:51 04:00 05:00 Temperature 99.2 F Pulse Rate 91 H 88 Pulse Rate [ Anterior Bilateral Throughout] Pulse Rate [ Bilateral] Respiratory 27 H 15 Rate Respiratory Rate [Anterior Bilateral Throughout] Respiratory Rate [Bilateral ] Blood Pressure 118/60 118/60 O2 Sat by Pulse 97 99 Oximetry O2 Sat by Pulse Oximetry [ Assessment] 08/16/18 08/16/18 08/16/18 06:00 07:00 07:55 Temperature Pulse Rate 88 92 H Pulse Rate [ 88 Anterior Bilateral Throughout] Pulse Rate [ 87 Bilateral] Respiratory 15 18 Rate Respiratory 16 Rate [Anterior Bilateral Throughout] Respiratory 16 Rate [Bilateral ] Blood Pressure 119/59 119/59 O2 Sat by Pulse 98 98 Oximetry O2 Sat by Pulse Oximetry [ Assessment] 08/16/18 08/16/18 08/16/18 08:00 08:28 09:00 Temperature 99.3 F Pulse Rate 89 97 H Pulse Rate [ Anterior Bilateral Throughout] Pulse Rate [ Bilateral] Respiratory 12 11 L Rate Respiratory Rate [Anterior Bilateral Throughout] Respiratory Rate [Bilateral ] Blood Pressure 117/67 120/63 O2 Sat by Pulse 99 96 93 Oximetry O2 Sat by Pulse 96 Oximetry [ Assessment] 08/16/18 08/16/18 10:00 11:00 Temperature Pulse Rate 106 H 92 H Pulse Rate [ Anterior Bilateral Throughout] Pulse Rate [ Bilateral] Respiratory 21 Rate Respiratory Rate [Anterior Bilateral Throughout] Respiratory Rate [Bilateral ] Blood Pressure 142/74 115/58 O2 Sat by Pulse 94 96 Oximetry O2 Sat by Pulse Oximetry [ Assessment] Constitutional: appears uncomfortable, other (elderly looking CM, normocephalic and atraumatic with normal respiratory effort) Eyes: non-icteric ENT: oropharynx moist, other (s/p tracheosomy) Neck: supple, no lymphadenopathy, no JVD, other (No thyromegaly) Effort: mildly labored Ascultation: Bilateral: diminished breath sounds, rhonchi Percussion: Bilateral: not dull Cardiovascular: irregular rhythm, other (+ systolic murmur) Gastrointestinal: hypoactive bowel sounds, soft, non-tender, non-distended, other (No palpable HSM) Integumentary: rash, other (upper extremity edema) Extremities: no cyanosis, pink and warm, pulses normal, no ischemia or petechiae Neurologic: normal mental status, non-focal exam (grossly), pupils equal and round, other (moves all extemities) Psychiatric: mood appropriate, affect normal CBC and BMP: 08/16/18 11:06 08/14/18 05:22 ABG, PT/INR, D-dimer: ABG POC ABG pH 7.432 (7.35-7.45) 08/16/18 10:23 POC ABG pCO2 44.9 (35-45) 08/16/18 10:23 POC ABG pO2 63 (80-105) L 08/16/18 10:23 POC ABG HCO3 29.9 08/16/18 10:23 POC ABG Total CO2 31 08/16/18 10:23 POC ABG O2 Sat 92 08/16/18 10:23 PT/INR, D-dimer PT 13.4 Sec. (12.2-14.9) 08/07/18 15:08 INR 0.98 (0.87-1.13) 08/07/18 15:08 D-Dimer 798.17 ng/mlDDU (0-234) H 07/27/18 15:52 Abnormal lab findings: Abnormal Labs 07/27/18 07/27/18 07/27/18 12:59 12:59 12:59 WBC 15.8 H RBC Hgb Hct MCV 104 H MCH 34 H MCHC RDW 16.3 H Lymph % (Auto) [place] % (Auto) Lymph # [place] # Seg Neutrophils % Seg Neuts % (Manual) 88.0 H Lymphocytes % (Manual) 3.0 L Monocytes % (Manual) Nucleated RBC % Seg Neutrophils # Seg Neutrophils # Man 13.9 H Lymphocytes # (Manual) 0.5 L Monocytes # (Manual) PT 17.0 H INR 1.34 H APTT D-Dimer Heparin Anti-Xa Level POC ABG pH POC ABG pCO2 POC ABG pO2 Sodium Potassium Chloride Carbon Dioxide 21 L BUN 38 H Creatinine 1.6 H Glucose POC Glucose Lactic Acid Calcium Phosphorus Total Bilirubin 1.30 H C-Reactive Protein NT-Pro-B Natriuret Pep 3913 H Total Protein 6.2 L Albumin 3.6 L Urine WBC (Auto) Urine Creatinine 07/27/18 07/27/18 07/27/18 15:52 16:12 17:09 WBC RBC Hgb Hct MCV MCH MCHC RDW Lymph % (Auto) [place] % (Auto) Lymph # [place] # Seg Neutrophils % Seg Neuts % (Manual) Lymphocytes % (Manual) Monocytes % (Manual) Nucleated RBC % Seg Neutrophils # Seg Neutrophils # Man Lymphocytes # (Manual) Monocytes # (Manual) PT 16.0 H INR 1.24 H APTT D-Dimer 798.17 H Heparin Anti-Xa Level POC ABG pH POC ABG pCO2 POC ABG pO2 Sodium Potassium Chloride Carbon Dioxide BUN Creatinine Glucose POC Glucose Lactic Acid 5.00 H* Calcium Phosphorus Total Bilirubin C-Reactive Protein NT-Pro-B Natriuret Pep Total Protein Albumin Urine WBC (Auto) Urine Creatinine 07/27/18 07/27/18 07/27/18 17:59 18:07 21:31 WBC RBC Hgb Hct MCV MCH MCHC RDW Lymph % (Auto) [place] % (Auto) Lymph # [place] # Seg Neutrophils % Seg Neuts % (Manual) Lymphocytes % (Manual) Monocytes % (Manual) Nucleated RBC % Seg Neutrophils # Seg Neutrophils # Man Lymphocytes # (Manual) Monocytes # (Manual) PT INR APTT D-Dimer Heparin Anti-Xa Level POC ABG pH 7.344 L POC ABG pCO2 POC ABG pO2 36 L Sodium Potassium Chloride Carbon Dioxide BUN Creatinine Glucose POC Glucose Lactic Acid 5.20 H* 5.00 H* Calcium Phosphorus Total Bilirubin C-Reactive Protein NT-Pro-B Natriuret Pep Total Protein Albumin Urine WBC (Auto) Urine Creatinine 07/27/18 07/27/18 07/27/18 21:57 22:42 23:26 WBC RBC Hgb Hct MCV MCH MCHC RDW Lymph % (Auto) [place] % (Auto) Lymph # [place] # Seg Neutrophils % Seg Neuts % (Manual) Lymphocytes % (Manual) Monocytes % (Manual) Nucleated RBC % Seg Neutrophils # Seg Neutrophils # Man Lymphocytes # (Manual) Monocytes # (Manual) PT INR APTT D-Dimer Heparin Anti-Xa Level POC ABG pH 7.199 L POC ABG pCO2 62.0 H POC ABG pO2 Sodium Potassium Chloride Carbon Dioxide BUN Creatinine Glucose POC Glucose Lactic Acid 4.70 H* 5.00 H* Calcium Phosphorus Total Bilirubin C-Reactive Protein NT-Pro-B Natriuret Pep Total Protein Albumin Urine WBC (Auto) Urine Creatinine 07/28/18 07/28/18 07/28/18 00:45 05:40 05:58 WBC RBC Hgb Hct MCV MCH MCHC RDW Lymph % (Auto) [place] % (Auto) Lymph # [place] # Seg Neutrophils % Seg Neuts % (Manual) Lymphocytes % (Manual) Monocytes % (Manual) Nucleated RBC % Seg Neutrophils # Seg Neutrophils # Man Lymphocytes # (Manual) Monocytes # (Manual) PT INR APTT D-Dimer Heparin Anti-Xa Level 0.11 L POC ABG pH 7.186 L POC ABG pCO2 60.1 H POC ABG pO2 68 L Sodium Potassium Chloride Carbon Dioxide BUN Creatinine Glucose POC Glucose Lactic Acid 4.70 H* Calcium Phosphorus Total Bilirubin C-Reactive Protein NT-Pro-B Natriuret Pep Total Protein Albumin Urine WBC (Auto) Urine Creatinine 07/28/18 07/28/18 07/28/18 06:01 06:01 07:19 WBC 12.5 H RBC 3.51 L Hgb 11.5 L Hct MCV 104 H MCH 33 H MCHC RDW 16.6 H Lymph % (Auto) [place] % (Auto) Lymph # [place] # Seg Neutrophils % Seg Neuts % (Manual) Lymphocytes % (Manual) Monocytes % (Manual) Nucleated RBC % Seg Neutrophils # Seg Neutrophils # Man Lymphocytes # (Manual) Monocytes # (Manual) PT INR APTT D-Dimer Heparin Anti-Xa Level 0.14 L POC ABG pH POC ABG pCO2 POC ABG pO2 Sodium 135 L Potassium 5.1 H Chloride 95.0 L Carbon Dioxide 21 L BUN 54 H Creatinine 2.6 H D Glucose POC Glucose Lactic Acid Calcium Phosphorus Total Bilirubin C-Reactive Protein NT-Pro-B Natriuret Pep Total Protein Albumin Urine WBC (Auto) Urine Creatinine 07/28/18 07/28/18 07/28/18 07:19 09:20 11:06 WBC RBC Hgb Hct MCV MCH MCHC RDW Lymph % (Auto) [place] % (Auto) Lymph # [place] # Seg Neutrophils % Seg Neuts % (Manual) Lymphocytes % (Manual) Monocytes % (Manual) Nucleated RBC % Seg Neutrophils # Seg Neutrophils # Man Lymphocytes # (Manual) Monocytes # (Manual) PT INR APTT D-Dimer Heparin Anti-Xa Level POC ABG pH 7.266 L POC ABG pCO2 49.7 H POC ABG pO2 74 L Sodium Potassium Chloride Carbon Dioxide BUN Creatinine Glucose POC Glucose Lactic Acid 4.00 H* 3.90 H* Calcium Phosphorus Total Bilirubin C-Reactive Protein NT-Pro-B Natriuret Pep Total Protein Albumin Urine WBC (Auto) Urine Creatinine 07/28/18 07/28/18 07/28/18 15:06 20:45 23:36 WBC RBC Hgb Hct MCV MCH MCHC RDW Lymph % (Auto) [place] % (Auto) Lymph # [place] # Seg Neutrophils % Seg Neuts % (Manual) Lymphocytes % (Manual) Monocytes % (Manual) Nucleated RBC % Seg Neutrophils # Seg Neutrophils # Man Lymphocytes # (Manual) Monocytes # (Manual) PT INR APTT D-Dimer Heparin Anti-Xa Level 0.15 L POC ABG pH POC ABG pCO2 POC ABG pO2 Sodium 134 L Potassium 5.2 H Chloride Carbon Dioxide BUN 58 H Creatinine 2.1 H Glucose 110 H POC Glucose 125 H Lactic Acid Calcium Phosphorus Total Bilirubin C-Reactive Protein NT-Pro-B Natriuret Pep Total Protein Albumin Urine WBC (Auto) Urine Creatinine 07/29/18 07/29/18 07/29/18 01:12 04:21 04:21 WBC RBC 3.21 L Hgb 10.8 L Hct 33.0 L MCV 103 H MCH 34 H MCHC RDW 16.4 H Lymph % (Auto) [place] % (Auto) Lymph # [place] # Seg Neutrophils % Seg Neuts % (Manual) Lymphocytes % (Manual) 11.0 L Monocytes % (Manual) Nucleated RBC % Seg Neutrophils # Seg Neutrophils # Man Lymphocytes # (Manual) 1.0 L Monocytes # (Manual) PT INR APTT D-Dimer Heparin Anti-Xa Level 0.21 L POC ABG pH POC ABG pCO2 POC ABG pO2 Sodium Potassium Chloride Carbon Dioxide BUN 48 H Creatinine 1.6 H Glucose 166 H POC Glucose Lactic Acid Calcium Phosphorus Total Bilirubin C-Reactive Protein NT-Pro-B Natriuret Pep Total Protein Albumin Urine WBC (Auto) Urine Creatinine 07/29/18 07/29/18 07/29/18 05:19 08:16 09:24 WBC RBC Hgb Hct MCV MCH MCHC RDW Lymph % (Auto) [place] % (Auto) Lymph # [place] # Seg Neutrophils % Seg Neuts % (Manual) Lymphocytes % (Manual) Monocytes % (Manual) Nucleated RBC % Seg Neutrophils # Seg Neutrophils # Man Lymphocytes # (Manual) Monocytes # (Manual) PT INR APTT D-Dimer Heparin Anti-Xa Level 0.25 L POC ABG pH POC ABG pCO2 POC ABG pO2 Sodium Potassium Chloride Carbon Dioxide BUN Creatinine Glucose POC Glucose 181 H Lactic Acid Calcium Phosphorus Total Bilirubin C-Reactive Protein NT-Pro-B Natriuret Pep Total Protein Albumin Urine WBC (Auto) 29.0 H Urine Creatinine 07/29/18 07/29/18 07/29/18 09:24 10:00 15:03 WBC RBC Hgb Hct MCV MCH MCHC RDW Lymph % (Auto) [place] % (Auto) Lymph # [place] # Seg Neutrophils % Seg Neuts % (Manual) Lymphocytes % (Manual) Monocytes % (Manual) Nucleated RBC % Seg Neutrophils # Seg Neutrophils # Man Lymphocytes # (Manual) Monocytes # (Manual) PT INR APTT D-Dimer Heparin Anti-Xa Level POC ABG pH POC ABG pCO2 POC ABG pO2 Sodium Potassium Chloride Carbon Dioxide BUN Creatinine Glucose POC Glucose 195 H 167 H Lactic Acid Calcium Phosphorus Total Bilirubin C-Reactive Protein NT-Pro-B Natriuret Pep Total Protein Albumin Urine WBC (Auto) Urine Creatinine 72.3 H 07/29/18 07/29/18 07/30/18 17:51 21:32 01:38 WBC RBC Hgb Hct MCV MCH MCHC RDW Lymph % (Auto) [place] % (Auto) Lymph # [place] # Seg Neutrophils % Seg Neuts % (Manual) Lymphocytes % (Manual) Monocytes % (Manual) Nucleated RBC % Seg Neutrophils # Seg Neutrophils # Man Lymphocytes # (Manual) Monocytes # (Manual) PT INR APTT D-Dimer Heparin Anti-Xa Level POC ABG pH POC ABG pCO2 POC ABG pO2 Sodium Potassium Chloride Carbon Dioxide BUN Creatinine Glucose POC Glucose 167 H 217 H 194 H Lactic Acid Calcium Phosphorus Total Bilirubin C-Reactive Protein NT-Pro-B Natriuret Pep Total Protein Albumin Urine WBC (Auto) Urine Creatinine 07/30/18 07/30/18 07/30/18 03:21 05:13 10:18 WBC RBC Hgb Hct MCV MCH MCHC RDW Lymph % (Auto) [place] % (Auto) Lymph # [place] # Seg Neutrophils % Seg Neuts % (Manual) Lymphocytes % (Manual) Monocytes % (Manual) Nucleated RBC % Seg Neutrophils # Seg Neutrophils # Man Lymphocytes # (Manual) Monocytes # (Manual) PT INR APTT D-Dimer Heparin Anti-Xa Level POC ABG pH POC ABG pCO2 50.3 H POC ABG pO2 78 L Sodium Potassium Chloride Carbon Dioxide BUN 41 H Creatinine Glucose 202 H POC Glucose 151 H Lactic Acid Calcium Phosphorus Total Bilirubin C-Reactive Protein NT-Pro-B Natriuret Pep Total Protein Albumin Urine WBC (Auto) Urine Creatinine 07/30/18 07/30/18 07/30/18 11:29 16:28 18:12 WBC RBC Hgb Hct MCV MCH MCHC RDW Lymph % (Auto) [place] % (Auto) Lymph # [place] # Seg Neutrophils % Seg Neuts % (Manual) Lymphocytes % (Manual) Monocytes % (Manual) Nucleated RBC % Seg Neutrophils # Seg Neutrophils # Man Lymphocytes # (Manual) Monocytes # (Manual) PT INR APTT D-Dimer Heparin Anti-Xa Level POC ABG pH 7.326 L POC ABG pCO2 53.2 H POC ABG pO2 70 L Sodium Potassium Chloride Carbon Dioxide BUN Creatinine Glucose POC Glucose 247 H 212 H Lactic Acid Calcium Phosphorus Total Bilirubin C-Reactive Protein NT-Pro-B Natriuret Pep Total Protein Albumin Urine WBC (Auto) Urine Creatinine 07/30/18 07/30/18 07/31/18 20:08 21:52 01:59 WBC RBC Hgb Hct MCV MCH MCHC RDW Lymph % (Auto) [place] % (Auto) Lymph # [place] # Seg Neutrophils % Seg Neuts % (Manual) Lymphocytes % (Manual) Monocytes % (Manual) Nucleated RBC % Seg Neutrophils # Seg Neutrophils # Man Lymphocytes # (Manual) Monocytes # (Manual) PT INR APTT D-Dimer Heparin Anti-Xa Level POC ABG pH POC ABG pCO2 POC ABG pO2 Sodium Potassium Chloride Carbon Dioxide BUN Creatinine Glucose POC Glucose 205 H 215 H 242 H Lactic Acid Calcium Phosphorus Total Bilirubin C-Reactive Protein NT-Pro-B Natriuret Pep Total Protein Albumin Urine WBC (Auto) Urine Creatinine 07/31/18 07/31/18 07/31/18 03:14 03:14 04:55 WBC RBC Hgb 10.6 L Hct 33.2 L MCV MCH MCHC RDW Lymph % (Auto) [place] % (Auto) Lymph # [place] # Seg Neutrophils % Seg Neuts % (Manual) Lymphocytes % (Manual) Monocytes % (Manual) Nucleated RBC % Seg Neutrophils # Seg Neutrophils # Man Lymphocytes # (Manual) Monocytes # (Manual) PT INR APTT D-Dimer Heparin Anti-Xa Level POC ABG pH 7.331 L POC ABG pCO2 67.1 H POC ABG pO2 Sodium Potassium Chloride Carbon Dioxide BUN 36 H Creatinine 0.7 L Glucose 242 H POC Glucose Lactic Acid Calcium 10.3 H Phosphorus 2.30 L Total Bilirubin C-Reactive Protein NT-Pro-B Natriuret Pep Total Protein Albumin Urine WBC (Auto) Urine Creatinine 07/31/18 07/31/18 07/31/18 05:37 10:08 14:07 WBC RBC Hgb Hct MCV MCH MCHC RDW Lymph % (Auto) [place] % (Auto) Lymph # [place] # Seg Neutrophils % Seg Neuts % (Manual) Lymphocytes % (Manual) Monocytes % (Manual) Nucleated RBC % Seg Neutrophils # Seg Neutrophils # Man Lymphocytes # (Manual) Monocytes # (Manual) PT INR APTT D-Dimer Heparin Anti-Xa Level POC ABG pH POC ABG pCO2 POC ABG pO2 Sodium Potassium Chloride Carbon Dioxide BUN Creatinine Glucose POC Glucose 193 H 247 H 225 H Lactic Acid Calcium Phosphorus Total Bilirubin C-Reactive Protein NT-Pro-B Natriuret Pep Total Protein Albumin Urine WBC (Auto) Urine Creatinine 07/31/18 07/31/18 08/01/18 18:12 21:34 02:00 WBC RBC Hgb Hct MCV MCH MCHC RDW Lymph % (Auto) [place] % (Auto) Lymph # [place] # Seg Neutrophils % Seg Neuts % (Manual) Lymphocytes % (Manual) Monocytes % (Manual) Nucleated RBC % Seg Neutrophils # Seg Neutrophils # Man Lymphocytes # (Manual) Monocytes # (Manual) PT INR APTT D-Dimer Heparin Anti-Xa Level POC ABG pH POC ABG pCO2 POC ABG pO2 Sodium Potassium Chloride Carbon Dioxide BUN Creatinine Glucose POC Glucose 197 H 204 H 239 H Lactic Acid Calcium Phosphorus Total Bilirubin C-Reactive Protein NT-Pro-B Natriuret Pep Total Protein Albumin Urine WBC (Auto) Urine Creatinine 08/01/18 08/01/18 08/01/18 04:13 04:37 05:29 WBC RBC Hgb Hct MCV MCH MCHC RDW Lymph % (Auto) [place] % (Auto) Lymph # [place] # Seg Neutrophils % Seg Neuts % (Manual) Lymphocytes % (Manual) Monocytes % (Manual) Nucleated RBC % Seg Neutrophils # Seg Neutrophils # Man Lymphocytes # (Manual) Monocytes # (Manual) PT INR APTT D-Dimer Heparin Anti-Xa Level POC ABG pH 7.296 L POC ABG pCO2 81.9 H POC ABG pO2 190 H Sodium 150 H D Potassium Chloride Carbon Dioxide 37 H D BUN 37 H Creatinine 0.6 L Glucose 223 H POC Glucose 219 H Lactic Acid Calcium Phosphorus Total Bilirubin C-Reactive Protein NT-Pro-B Natriuret Pep Total Protein Albumin Urine WBC (Auto) Urine Creatinine 08/01/18 08/01/18 08/01/18 09:28 11:00 17:36 WBC RBC Hgb Hct MCV MCH MCHC RDW Lymph % (Auto) [place] % (Auto) Lymph # [place] # Seg Neutrophils % Seg Neuts % (Manual) Lymphocytes % (Manual) Monocytes % (Manual) Nucleated RBC % Seg Neutrophils # Seg Neutrophils # Man Lymphocytes # (Manual) Monocytes # (Manual) PT INR APTT D-Dimer Heparin Anti-Xa Level POC ABG pH POC ABG pCO2 61.2 H POC ABG pO2 69 L Sodium Potassium Chloride Carbon Dioxide BUN Creatinine Glucose POC Glucose 185 H 234 H Lactic Acid Calcium Phosphorus Total Bilirubin C-Reactive Protein NT-Pro-B Natriuret Pep Total Protein Albumin Urine WBC (Auto) Urine Creatinine 08/01/18 08/02/18 08/02/18 21:54 00:08 00:44 WBC RBC Hgb Hct MCV MCH MCHC RDW Lymph % (Auto) [place] % (Auto) Lymph # [place] # Seg Neutrophils % Seg Neuts % (Manual) Lymphocytes % (Manual) Monocytes % (Manual) Nucleated RBC % Seg Neutrophils # Seg Neutrophils # Man Lymphocytes # (Manual) Monocytes # (Manual) PT INR APTT D-Dimer Heparin Anti-Xa Level 0.77 H POC ABG pH POC ABG pCO2 66.4 H POC ABG pO2 64 L Sodium Potassium Chloride Carbon Dioxide BUN Creatinine Glucose POC Glucose 242 H Lactic Acid Calcium Phosphorus Total Bilirubin C-Reactive Protein NT-Pro-B Natriuret Pep Total Protein Albumin Urine WBC (Auto) Urine Creatinine 1208/02/18 08/02/18 02:46 04:45 04:45 WBC RBC Hgb 10.7 L Hct 33.7 L MCV MCH MCHC RDW Lymph % (Auto) [place] % (Auto) Lymph # [place] # Seg Neutrophils % Seg Neuts % (Manual) Lymphocytes % (Manual) Monocytes % (Manual) Nucleated RBC % Seg Neutrophils # Seg Neutrophils # Man Lymphocytes # (Manual) Monocytes # (Manual) PT INR APTT D-Dimer Heparin Anti-Xa Level POC ABG pH POC ABG pCO2 POC ABG pO2 Sodium 152 H Potassium Chloride 108.1 H Carbon Dioxide 39 H BUN 38 H Creatinine 0.6 L Glucose 226 H POC Glucose 206 H Lactic Acid Calcium Phosphorus Total Bilirubin C-Reactive Protein NT-Pro-B Natriuret Pep Total Protein Albumin Urine WBC (Auto) Urine Creatinine 08/02/18 08/02/18 08/02/18 05:31 09:46 14:23 WBC RBC Hgb Hct MCV MCH MCHC RDW Lymph % (Auto) [place] % (Auto) Lymph # [place] # Seg Neutrophils % Seg Neuts % (Manual) Lymphocytes % (Manual) Monocytes % (Manual) Nucleated RBC % Seg Neutrophils # Seg Neutrophils # Man Lymphocytes # (Manual) Monocytes # (Manual) PT INR APTT D-Dimer Heparin Anti-Xa Level 0.91 H POC ABG pH POC ABG pCO2 POC ABG pO2 Sodium Potassium Chloride Carbon Dioxide BUN Creatinine Glucose POC Glucose 214 H 210 H Lactic Acid Calcium Phosphorus Total Bilirubin C-Reactive Protein NT-Pro-B Natriuret Pep Total Protein Albumin Urine WBC (Auto) Urine Creatinine 08/02/18 08/02/18 08/02/18 15:46 17:56 21:50 WBC RBC Hgb Hct MCV MCH MCHC RDW Lymph % (Auto) [place] % (Auto) Lymph # [place] # Seg Neutrophils % Seg Neuts % (Manual) Lymphocytes % (Manual) Monocytes % (Manual) Nucleated RBC % Seg Neutrophils # Seg Neutrophils # Man Lymphocytes # (Manual) Monocytes # (Manual) PT INR APTT D-Dimer Heparin Anti-Xa Level 0.99 H POC ABG pH POC ABG pCO2 POC ABG pO2 Sodium Potassium Chloride Carbon Dioxide BUN Creatinine Glucose POC Glucose 252 H 222 H Lactic Acid Calcium Phosphorus Total Bilirubin C-Reactive Protein NT-Pro-B Natriuret Pep Total Protein Albumin Urine WBC (Auto) Urine Creatinine 08/03/18 08/03/1808/03/18 02:18 05:21 05:25 WBC RBC Hgb Hct MCV MCH MCHC RDW Lymph % (Auto) [place] % (Auto) Lymph # [place] # Seg Neutrophils % Seg Neuts % (Manual) Lymphocytes % (Manual) Monocytes % (Manual) Nucleated RBC % Seg Neutrophils # Seg Neutrophils # Man Lymphocytes # (Manual) Monocytes # (Manual) PT INR APTT D-Dimer Heparin Anti-Xa Level POC ABG pH POC ABG pCO2 POC ABG pO2 Sodium 151 H Potassium Chloride 107.3 H Carbon Dioxide 37 H BUN 42 H Creatinine 0.6 L Glucose 263 H POC Glucose 241 H 241 H Lactic Acid Calcium Phosphorus Total Bilirubin C-Reactive Protein NT-Pro-B Natriuret Pep Total Protein Albumin Urine WBC (Auto) Urine Creatinine 08/03/18 08/03/18 08/03/18 09:11 12:20 14:33 WBC RBC Hgb Hct MCV MCH MCHC RDW Lymph % (Auto) [place] % (Auto) Lymph # [place] # Seg Neutrophils % Seg Neuts % (Manual) Lymphocytes % (Manual) Monocytes % (Manual) Nucleated RBC % Seg Neutrophils # Seg Neutrophils # Man Lymphocytes # (Manual) Monocytes # (Manual) PT INR APTT D-Dimer Heparin Anti-Xa Level POC ABG pH POC ABG pCO2 POC ABG pO2 Sodium Potassium Chloride Carbon Dioxide BUN Creatinine Glucose POC Glucose 272 H 234 H 247 H Lactic Acid Calcium Phosphorus Total Bilirubin C-Reactive Protein NT-Pro-B Natriuret Pep Total Protein Albumin Urine WBC (Auto) Urine Creatinine 08/03/18 08/03/18 08/04/18 16:48 21:21 01:56 WBC RBC Hgb Hct MCV MCH MCHC RDW Lymph % (Auto) [place] % (Auto) Lymph # [place] # Seg Neutrophils % Seg Neuts % (Manual) Lymphocytes % (Manual) Monocytes % (Manual) Nucleated RBC % Seg Neutrophils # Seg Neutrophils # Man Lymphocytes # (Manual) Monocytes # (Manual) PT INR APTT D-Dimer Heparin Anti-Xa Level POC ABG pH POC ABG pCO2 POC ABG pO2 Sodium Potassium Chloride Carbon Dioxide BUN Creatinine Glucose POC Glucose 180 H 189 H Lactic Acid Calcium Phosphorus Total Bilirubin C-Reactive Protein 2.30 H NT-Pro-B Natriuret Pep Total Protein Albumin Urine WBC (Auto) Urine Creatinine 08/04/18 08/04/18 08/04/18 01:58 05:05 05:05 WBC 25.5 H RBC 3.31 L Hgb 10.8 L Hct 34.1 L MCV 103 H MCH 33 H MCHC RDW 16.0 H Lymph % (Auto) [place] % (Auto) Lymph # [place] # Seg Neutrophils % Seg Neuts % (Manual) Lymphocytes % (Manual) 8.0 L Monocytes % (Manual) Nucleated RBC % 2.0 H Seg Neutrophils # Seg Neutrophils # Man 16.3 H Lymphocytes # (Manual) Monocytes # (Manual) 1.0 H PT INR APTT D-Dimer Heparin Anti-Xa Level 0.79 H POC ABG pH POC ABG pCO2 POC ABG pO2 Sodium 148 H Potassium Chloride Carbon Dioxide 36 H BUN 35 H Creatinine 0.6 L Glucose 160 H POC Glucose Lactic Acid Calcium Phosphorus Total Bilirubin C-Reactive Protein NT-Pro-B Natriuret Pep Total Protein Albumin Urine WBC (Auto) Urine Creatinine 08/04/18 08/04/18 08/04/18 05:24 05:33 08:46 WBC RBC Hgb Hct MCV MCH MCHC RDW Lymph % (Auto) [place] % (Auto) Lymph # [place] # Seg Neutrophils % Seg Neuts % (Manual) Lymphocytes % (Manual) Monocytes % (Manual) Nucleated RBC % Seg Neutrophils # Seg Neutrophils # Man Lymphocytes # (Manual) Monocytes # (Manual) PT INR APTT D-Dimer Heparin Anti-Xa Level 0.76 H POC ABG pH POC ABG pCO2 65.7 H POC ABG pO2 63 L Sodium Potassium Chloride Carbon Dioxide BUN Creatinine Glucose POC Glucose 159 H Lactic Acid Calcium Phosphorus Total Bilirubin C-Reactive Protein NT-Pro-B Natriuret Pep Total Protein Albumin Urine WBC (Auto) Urine Creatinine 08/04/18 08/04/18 08/04/18 09:12 15:38 18:20 WBC RBC Hgb Hct MCV MCH MCHC RDW Lymph % (Auto) [place] % (Auto) Lymph # [place] # Seg Neutrophils % Seg Neuts % (Manual) Lymphocytes % (Manual) Monocytes % (Manual) Nucleated RBC % Seg Neutrophils # Seg Neutrophils # Man Lymphocytes # (Manual) Monocytes # (Manual) PT INR APTT D-Dimer Heparin Anti-Xa Level POC ABG pH POC ABG pCO2 POC ABG pO2 Sodium Potassium Chloride Carbon Dioxide BUN Creatinine Glucose POC Glucose 140 H 267 H 252 H Lactic Acid Calcium Phosphorus Total Bilirubin C-Reactive Protein NT-Pro-B Natriuret Pep Total Protein Albumin Urine WBC (Auto) Urine Creatinine 08/04/18 08/05/18 08/05/18 21:17 02:51 04:36 WBC RBC Hgb Hct MCV MCH MCHC RDW Lymph % (Auto) [place] % (Auto) Lymph # [place] # Seg Neutrophils % Seg Neuts % (Manual) Lymphocytes % (Manual) Monocytes % (Manual) Nucleated RBC % Seg Neutrophils # Seg Neutrophils # Man Lymphocytes # (Manual) Monocytes # (Manual) PT INR APTT D-Dimer Heparin Anti-Xa Level POC ABG pH POC ABG pCO2 POC ABG pO2 Sodium Potassium Chloride Carbon Dioxide BUN Creatinine Glucose POC Glucose 181 H 240 H 255 H Lactic Acid Calcium Phosphorus Total Bilirubin C-Reactive Protein NT-Pro-B Natriuret Pep Total Protein Albumin Urine WBC (Auto) Urine Creatinine 08/05/18 08/05/18 08/05/18 04:55 10:21 12:39 WBC 21.8 H RBC 3.18 L Hgb 10.3 L Hct 32.6 L MCV 103 H MCH 33 H MCHC RDW 16.3 H Lymph % (Auto) [place] % (Auto) Lymph # [place] # Seg Neutrophils % Seg Neuts % (Manual) 88.0 H Lymphocytes % (Manual) 4.0 L Monocytes % (Manual) Nucleated RBC % Seg Neutrophils # Seg Neutrophils # Man 19.2 H Lymphocytes # (Manual) 0.9 L Monocytes # (Manual) PT INR APTT D-Dimer Heparin Anti-Xa Level POC ABG pH 7.506 H POC ABG pCO2 56.0 H POC ABG pO2 63 L Sodium Potassium Chloride Carbon Dioxide BUN Creatinine Glucose POC Glucose 227 H Lactic Acid Calcium Phosphorus Total Bilirubin C-Reactive Protein NT-Pro-B Natriuret Pep Total Protein Albumin Urine WBC (Auto) Urine Creatinine 08/05/18 08/05/18 08/05/18 12:39 14:10 17:30 WBC RBC Hgb Hct MCV MCH MCHC RDW Lymph % (Auto) [place] % (Auto) Lymph # [place] # Seg Neutrophils % Seg Neuts % (Manual) Lymphocytes % (Manual) Monocytes % (Manual) Nucleated RBC % Seg Neutrophils # Seg Neutrophils # Man Lymphocytes # (Manual) Monocytes # (Manual) PT INR APTT D-Dimer Heparin Anti-Xa Level < 0.10 L POC ABG pH POC ABG pCO2 POC ABG pO2 Sodium Potassium Chloride 96.8 L Carbon Dioxide 38 H BUN 36 H Creatinine 0.6 L Glucose 218 H POC Glucose 221 H Lactic Acid Calcium Phosphorus Total Bilirubin C-Reactive Protein NT-Pro-B Natriuret Pep Total Protein Albumin Urine WBC (Auto) Urine Creatinine 08/05/18 08/05/18 08/06/18 18:32 23:32 02:26 WBC RBC Hgb Hct MCV MCH MCHC RDW Lymph % (Auto) [place] % (Auto) Lymph # [place] # Seg Neutrophils % Seg Neuts % (Manual) Lymphocytes % (Manual) Monocytes % (Manual) Nucleated RBC % Seg Neutrophils # Seg Neutrophils # Man Lymphocytes # (Manual) Monocytes # (Manual) PT INR APTT D-Dimer Heparin Anti-Xa Level POC ABG pH POC ABG pCO2 POC ABG pO2 Sodium Potassium Chloride Carbon Dioxide BUN Creatinine Glucose POC Glucose 253 H 215 H 227 H Lactic Acid Calcium Phosphorus Total Bilirubin C-Reactive Protein NT-Pro-B Natriuret Pep Total Protein Albumin Urine WBC (Auto) Urine Creatinine 08/06/18 08/06/18 08/06/18 05:17 05:17 05:32 WBC 18.9 H RBC 3.06 L Hgb 10.2 L Hct 31.3 L MCV 102 H MCH 33 H MCHC RDW 16.1 H Lymph % (Auto) [place] % (Auto) Lymph # [place] # Seg Neutrophils % Seg Neuts % (Manual) Lymphocytes % (Manual) Monocytes % (Manual) Nucleated RBC % Seg Neutrophils # Seg Neutrophils # Man Lymphocytes # (Manual) Monocytes # (Manual) PT INR APTT D-Dimer Heparin Anti-Xa Level POC ABG pH 7.468 H POC ABG pCO2 59.5 H POC ABG pO2 64 L Sodium Potassium Chloride Carbon Dioxide 37 H BUN 37 H Creatinine 0.5 L Glucose 226 H POC Glucose Lactic Acid Calcium Phosphorus Total Bilirubin C-Reactive Protein NT-Pro-B Natriuret Pep Total Protein Albumin Urine WBC (Auto) Urine Creatinine 08/06/18 08/06/18 08/06/18 10:11 15:03 17:48 WBC RBC Hgb Hct MCV MCH MCHC RDW Lymph % (Auto) [place] % (Auto) Lymph # [place] # Seg Neutrophils % Seg Neuts % (Manual) Lymphocytes % (Manual) Monocytes % (Manual) Nucleated RBC % Seg Neutrophils # Seg Neutrophils # Man Lymphocytes # (Manual) Monocytes # (Manual) PT INR APTT D-Dimer Heparin Anti-Xa Level POC ABG pH POC ABG pCO2 POC ABG pO2 Sodium Potassium Chloride Carbon Dioxide BUN Creatinine Glucose POC Glucose 207 H 229 H 188 H Lactic Acid Calcium Phosphorus Total Bilirubin C-Reactive Protein NT-Pro-B Natriuret Pep Total Protein Albumin Urine WBC (Auto) Urine Creatinine 08/06/18 08/07/18 08/07/18 22:53 01:55 05:30 WBC RBC Hgb Hct MCV MCH MCHC RDW Lymph % (Auto) [place] % (Auto) Lymph # [place] # Seg Neutrophils % Seg Neuts % (Manual) Lymphocytes % (Manual) Monocytes % (Manual) Nucleated RBC % Seg Neutrophils # Seg Neutrophils # Man Lymphocytes # (Manual) Monocytes # (Manual) PT INR APTT D-Dimer Heparin Anti-Xa Level POC ABG pH POC ABG pCO2 69.6 H POC ABG pO2 64 L Sodium Potassium Chloride Carbon Dioxide BUN Creatinine Glucose POC Glucose 146 H 143 H Lactic Acid Calcium Phosphorus Total Bilirubin C-Reactive Protein NT-Pro-B Natriuret Pep Total Protein Albumin Urine WBC (Auto) Urine Creatinine 08/07/18 08/07/18 08/07/18 09:59 14:16 15:08 WBC RBC Hgb 10.3 L Hct 32.2 L MCV MCH MCHC RDW Lymph % (Auto) [place] % (Auto) Lymph # [place] # Seg Neutrophils % Seg Neuts % (Manual) Lymphocytes % (Manual) Monocytes % (Manual) Nucleated RBC % Seg Neutrophils # Seg Neutrophils # Man Lymphocytes # (Manual) Monocytes # (Manual) PT INR APTT D-Dimer Heparin Anti-Xa Level POC ABG pH POC ABG pCO2 POC ABG pO2 Sodium Potassium Chloride Carbon Dioxide BUN Creatinine Glucose POC Glucose 188 H 223 H Lactic Acid Calcium Phosphorus Total Bilirubin C-Reactive Protein NT-Pro-B Natriuret Pep Total Protein Albumin Urine WBC (Auto) Urine Creatinine 08/07/18 08/07/18 08/07/18 15:08 17:39 22:04 WBC RBC Hgb Hct MCV MCH MCHC RDW Lymph % (Auto) [place] % (Auto) Lymph # [place] # Seg Neutrophils % Seg Neuts % (Manual) Lymphocytes % (Manual) Monocytes % (Manual) Nucleated RBC % Seg Neutrophils # Seg Neutrophils # Man Lymphocytes # (Manual) Monocytes # (Manual) PT INR APTT 23.2 L D-Dimer Heparin Anti-Xa Level POC ABG pH POC ABG pCO2 POC ABG pO2 Sodium Potassium Chloride Carbon Dioxide BUN Creatinine Glucose POC Glucose 208 H 163 H Lactic Acid Calcium Phosphorus Total Bilirubin C-Reactive Protein NT-Pro-B Natriuret Pep Total Protein Albumin Urine WBC (Auto) Urine Creatinine 08/07/18 08/08/18 08/08/18 22:30 01:57 02:09 WBC 14.6 H RBC 2.88 L Hgb 9.5 L Hct 29.9 L MCV 104 H MCH 33 H MCHC RDW 16.8 H Lymph % (Auto) [place] % (Auto) Lymph # [place] # Seg Neutrophils % Seg Neuts % (Manual) 73.0 H Lymphocytes % (Manual) 9.0 L Monocytes % (Manual) 10.0 H Nucleated RBC % Seg Neutrophils # Seg Neutrophils # Man 10.7 H Lymphocytes # (Manual) Monocytes # (Manual) 1.5 H PT INR APTT D-Dimer Heparin Anti-Xa Level 0.25 L POC ABG pH POC ABG pCO2 POC ABG pO2 Sodium Potassium Chloride Carbon Dioxide BUN Creatinine Glucose POC Glucose 120 H Lactic Acid Calcium Phosphorus Total Bilirubin C-Reactive Protein NT-Pro-B Natriuret Pep Total Protein Albumin Urine WBC (Auto) Urine Creatinine 08/08/18 08/08/18 08/08/18 02:09 04:58 05:19 WBC RBC Hgb Hct MCV MCH MCHC RDW Lymph % (Auto) [place] % (Auto) Lymph # [place] # Seg Neutrophils % Seg Neuts % (Manual) Lymphocytes % (Manual) Monocytes % (Manual) Nucleated RBC % Seg Neutrophils # Seg Neutrophils # Man Lymphocytes # (Manual) Monocytes # (Manual) PT INR APTT D-Dimer Heparin Anti-Xa Level POC ABG pH 7.461 H POC ABG pCO2 57.3 H POC ABG pO2 62 L Sodium Potassium Chloride Carbon Dioxide 39 H BUN 29 H Creatinine 0.5 L Glucose 124 H POC Glucose 139 H Lactic Acid Calcium Phosphorus Total Bilirubin C-Reactive Protein NT-Pro-B Natriuret Pep Total Protein Albumin Urine WBC (Auto) Urine Creatinine 08/08/18 08/08/18 08/08/18 10:22 14:52 16:12 WBC RBC Hgb Hct MCV MCH MCHC RDW Lymph % (Auto) [place] % (Auto) Lymph # [place] # Seg Neutrophils % Seg Neuts % (Manual) Lymphocytes % (Manual) Monocytes % (Manual) Nucleated RBC % Seg Neutrophils # Seg Neutrophils # Man Lymphocytes # (Manual) Monocytes # (Manual) PT INR APTT D-Dimer Heparin Anti-Xa Level POC ABG pH POC ABG pCO2 POC ABG pO2 Sodium Potassium Chloride Carbon Dioxide BUN Creatinine Glucose POC Glucose 169 H 149 H 136 H Lactic Acid Calcium Phosphorus Total Bilirubin C-Reactive Protein NT-Pro-B Natriuret Pep Total Protein Albumin Urine WBC (Auto) Urine Creatinine 08/09/18 08/09/18 08/09/18 02:26 03:52 03:52 WBC 15.9 H RBC 2.87 L Hgb 9.6 L Hct 30.7 L MCV 107 H MCH 34 H MCHC 31 L RDW 17.8 H Lymph % (Auto) 3.9 L [place] % (Auto) 8.1 H Lymph # 0.6 L [place] # 1.3 H Seg Neutrophils % 87.1 H Seg Neuts % (Manual) Lymphocytes % (Manual) Monocytes % (Manual) Nucleated RBC % Seg Neutrophils # 13.9 H Seg Neutrophils # Man Lymphocytes # (Manual) Monocytes # (Manual) PT INR APTT D-Dimer Heparin Anti-Xa Level 0.25 L POC ABG pH POC ABG pCO2 POC ABG pO2 Sodium Potassium Chloride Carbon Dioxide BUN Creatinine Glucose POC Glucose 126 H Lactic Acid Calcium Phosphorus Total Bilirubin C-Reactive Protein NT-Pro-B Natriuret Pep Total Protein Albumin Urine WBC (Auto) Urine Creatinine 08/09/18 08/09/18 08/09/18 03:52 05:34 06:48 WBC RBC Hgb Hct MCV MCH MCHC RDW Lymph % (Auto) [place] % (Auto) Lymph # [place] # Seg Neutrophils % Seg Neuts % (Manual) Lymphocytes % (Manual) Monocytes % (Manual) Nucleated RBC % Seg Neutrophils # Seg Neutrophils # Man Lymphocytes # (Manual) Monocytes # (Manual) PT INR APTT D-Dimer Heparin Anti-Xa Level POC ABG pH POC ABG pCO2 57.5 H POC ABG pO2 58 L Sodium Potassium Chloride Carbon Dioxide 39 H BUN 26 H Creatinine 0.5 L Glucose 128 H POC Glucose 171 H Lactic Acid Calcium Phosphorus Total Bilirubin C-Reactive Protein NT-Pro-B Natriuret Pep Total Protein Albumin Urine WBC (Auto) Urine Creatinine 08/09/18 08/09/18 08/09/18 09:28 09:36 13:44 WBC RBC Hgb Hct MCV MCH MCHC RDW Lymph % (Auto) [place] % (Auto) Lymph # [place] # Seg Neutrophils % Seg Neuts % (Manual) Lymphocytes % (Manual) Monocytes % (Manual) Nucleated RBC % Seg Neutrophils # Seg Neutrophils # Man Lymphocytes # (Manual) Monocytes # (Manual) PT INR APTT D-Dimer Heparin Anti-Xa Level 0.26 L POC ABG pH POC ABG pCO2 POC ABG pO2 Sodium Potassium Chloride Carbon Dioxide BUN Creatinine Glucose POC Glucose 183 H 184 H Lactic Acid Calcium Phosphorus Total Bilirubin C-Reactive Protein NT-Pro-B Natriuret Pep Total Protein Albumin Urine WBC (Auto) Urine Creatinine 08/09/18 08/10/18 08/10/18 17:55 04:49 05:20 WBC RBC Hgb Hct MCV MCH MCHC RDW Lymph % (Auto) [place] % (Auto) Lymph # [place] # Seg Neutrophils % Seg Neuts % (Manual) Lymphocytes % (Manual) Monocytes % (Manual) Nucleated RBC % Seg Neutrophils # Seg Neutrophils # Man Lymphocytes # (Manual) Monocytes # (Manual) PT INR APTT D-Dimer Heparin Anti-Xa Level POC ABG pH POC ABG pCO2 59.9 H POC ABG pO2 59 L Sodium Potassium Chloride Carbon Dioxide BUN Creatinine Glucose POC Glucose 148 H 59 L Lactic Acid Calcium Phosphorus Total Bilirubin C-Reactive Protein NT-Pro-B Natriuret Pep Total Protein Albumin Urine WBC (Auto) Urine Creatinine 08/10/18 08/10/18 08/10/18 05:53 17:12 21:17 WBC RBC Hgb Hct MCV MCH MCHC RDW Lymph % (Auto) [place] % (Auto) Lymph # [place] # Seg Neutrophils % Seg Neuts % (Manual) Lymphocytes % (Manual) Monocytes % (Manual) Nucleated RBC % Seg Neutrophils # Seg Neutrophils # Man Lymphocytes # (Manual) Monocytes # (Manual) PT INR APTT D-Dimer Heparin Anti-Xa Level POC ABG pH POC ABG pCO2 POC ABG pO2 Sodium Potassium Chloride Carbon Dioxide BUN Creatinine Glucose POC Glucose 128 H 110 H 109 H Lactic Acid Calcium Phosphorus Total Bilirubin C-Reactive Protein NT-Pro-B Natriuret Pep Total Protein Albumin Urine WBC (Auto) Urine Creatinine 08/11/18 08/11/18 08/11/18 00:54 02:28 04:17 WBC RBC Hgb 7.8 L Hct 24.1 L D MCV MCH MCHC RDW Lymph % (Auto) [place] % (Auto) Lymph # [place] # Seg Neutrophils % Seg Neuts % (Manual) Lymphocytes % (Manual) Monocytes % (Manual) Nucleated RBC % Seg Neutrophils # Seg Neutrophils # Man Lymphocytes # (Manual) Monocytes # (Manual) PT INR APTT D-Dimer Heparin Anti-Xa Level 0.19 L POC ABG pH POC ABG pCO2 POC ABG pO2 Sodium Potassium Chloride Carbon Dioxide BUN Creatinine Glucose POC Glucose 124 H Lactic Acid Calcium Phosphorus Total Bilirubin C-Reactive Protein NT-Pro-B Natriuret Pep Total Protein Albumin Urine WBC (Auto) Urine Creatinine 08/11/18 08/11/18 08/11/18 05:10 07:42 10:27 WBC RBC Hgb Hct MCV MCH MCHC RDW Lymph % (Auto) [place] % (Auto) Lymph # [place] # Seg Neutrophils % Seg Neuts % (Manual) Lymphocytes % (Manual) Monocytes % (Manual) Nucleated RBC % Seg Neutrophils # Seg Neutrophils # Man Lymphocytes # (Manual) Monocytes # (Manual) PT INR APTT D-Dimer Heparin Anti-Xa Level 0.20 L POC ABG pH POC ABG pCO2 POC ABG pO2 Sodium Potassium Chloride Carbon Dioxide BUN Creatinine Glucose POC Glucose 150 H 156 H Lactic Acid Calcium Phosphorus Total Bilirubin C-Reactive Protein NT-Pro-B Natriuret Pep Total Protein Albumin Urine WBC (Auto) Urine Creatinine 08/11/18 08/11/18 08/11/18 13:54 15:06 18:13 WBC RBC Hgb Hct MCV MCH MCHC RDW Lymph % (Auto) [place] % (Auto) Lymph # [place] # Seg Neutrophils % Seg Neuts % (Manual) Lymphocytes % (Manual) Monocytes % (Manual) Nucleated RBC % Seg Neutrophils # Seg Neutrophils # Man Lymphocytes # (Manual) Monocytes # (Manual) PT INR APTT D-Dimer Heparin Anti-Xa Level POC ABG pH 7.471 H POC ABG pCO2 45.5 H POC ABG pO2 79 L Sodium Potassium Chloride Carbon Dioxide BUN Creatinine Glucose POC Glucose 177 H 143 H Lactic Acid Calcium Phosphorus Total Bilirubin C-Reactive Protein NT-Pro-B Natriuret Pep Total Protein Albumin Urine WBC (Auto) Urine Creatinine 08/11/18 08/11/18 08/11/18 18:33 21:22 Unknown WBC RBC Hgb Hct MCV MCH MCHC RDW Lymph % (Auto) [place] % (Auto) Lymph # [place] # Seg Neutrophils % Seg Neuts % (Manual) Lymphocytes % (Manual) Monocytes % (Manual) Nucleated RBC % Seg Neutrophils # Seg Neutrophils # Man Lymphocytes # (Manual) Monocytes # (Manual) PT INR APTT D-Dimer Heparin Anti-Xa Level 0.29 L POC ABG pH POC ABG pCO2 POC ABG pO2 Sodium 136 L Potassium Chloride 96.5 L Carbon Dioxide 32 H D BUN Creatinine 0.5 L Glucose 186 H POC Glucose 151 H Lactic Acid Calcium Phosphorus Total Bilirubin C-Reactive Protein NT-Pro-B Natriuret Pep Total Protein Albumin Urine WBC (Auto) Urine Creatinine 08/11/18 08/12/18 08/12/18 Unknown 02:09 05:29 WBC 12.1 H RBC 2.50 L Hgb 8.2 L Hct 25.7 L MCV 103 H MCH 33 H MCHC RDW 17.0 H Lymph % (Auto) 5.1 L [place] % (Auto) 9.5 H Lymph # 0.6 L [place] # 1.2 H Seg Neutrophils % 84.8 H Seg Neuts % (Manual) Lymphocytes % (Manual) Monocytes % (Manual) Nucleated RBC % Seg Neutrophils # 10.3 H Seg Neutrophils # Man Lymphocytes # (Manual) Monocytes # (Manual) PT INR APTT D-Dimer Heparin Anti-Xa Level POC ABG pH POC ABG pCO2 POC ABG pO2 Sodium Potassium Chloride Carbon Dioxide BUN Creatinine Glucose POC Glucose 159 H 136 H Lactic Acid Calcium Phosphorus Total Bilirubin C-Reactive Protein NT-Pro-B Natriuret Pep Total Protein Albumin Urine WBC (Auto) Urine Creatinine 08/12/18 08/12/18 08/12/18 07:33 09:59 13:59 WBC RBC Hgb Hct MCV MCH MCHC RDW Lymph % (Auto) [place] % (Auto) Lymph # [place] # Seg Neutrophils % Seg Neuts % (Manual) Lymphocytes % (Manual) Monocytes % (Manual) Nucleated RBC % Seg Neutrophils # Seg Neutrophils # Man Lymphocytes # (Manual) Monocytes # (Manual) PT INR APTT D-Dimer Heparin Anti-Xa Level POC ABG pH POC ABG pCO2 POC ABG pO2 Sodium Potassium Chloride Carbon Dioxide BUN Creatinine Glucose POC Glucose 138 H 157 H 167 H Lactic Acid Calcium Phosphorus Total Bilirubin C-Reactive Protein NT-Pro-B Natriuret Pep Total Protein Albumin Urine WBC (Auto) Urine Creatinine 08/12/18 08/12/18 08/12/18 14:31 14:56 17:39 WBC RBC Hgb Hct MCV MCH MCHC RDW Lymph % (Auto) [place] % (Auto) Lymph # [place] # Seg Neutrophils % Seg Neuts % (Manual) Lymphocytes % (Manual) Monocytes % (Manual) Nucleated RBC % Seg Neutrophils # Seg Neutrophils # Man Lymphocytes # (Manual) Monocytes # (Manual) PT INR APTT D-Dimer Heparin Anti-Xa Level 1.18 H POC ABG pH 7.466 H POC ABG pCO2 POC ABG pO2 58 L Sodium Potassium Chloride Carbon Dioxide BUN Creatinine Glucose POC Glucose 168 H Lactic Acid Calcium Phosphorus Total Bilirubin C-Reactive Protein NT-Pro-B Natriuret Pep Total Protein Albumin Urine WBC (Auto) Urine Creatinine 08/12/18 08/13/18 08/13/18 21:38 02:17 05:20 WBC RBC Hgb 8.0 L Hct 24.5 L MCV MCH MCHC RDW Lymph % (Auto) [place] % (Auto) Lymph # [place] # Seg Neutrophils % Seg Neuts % (Manual) Lymphocytes % (Manual) Monocytes % (Manual) Nucleated RBC % Seg Neutrophils # Seg Neutrophils # Man Lymphocytes # (Manual) Monocytes # (Manual) PT INR APTT D-Dimer Heparin Anti-Xa Level POC ABG pH POC ABG pCO2 POC ABG pO2 Sodium Potassium Chloride Carbon Dioxide BUN Creatinine Glucose POC Glucose 168 H 157 H Lactic Acid Calcium Phosphorus Total Bilirubin C-Reactive Protein NT-Pro-B Natriuret Pep Total Protein Albumin Urine WBC (Auto) Urine Creatinine 08/13/18 08/13/18 08/13/18 09:28 10:07 14:09 WBC RBC Hgb Hct MCV MCH MCHC RDW Lymph % (Auto) [place] % (Auto) Lymph # [place] # Seg Neutrophils % Seg Neuts % (Manual) Lymphocytes % (Manual) Monocytes % (Manual) Nucleated RBC % Seg Neutrophils # Seg Neutrophils # Man Lymphocytes # (Manual) Monocytes # (Manual) PT INR APTT D-Dimer Heparin Anti-Xa Level POC ABG pH 7.453 H POC ABG pCO2 47.5 H POC ABG pO2 Sodium Potassium Chloride Carbon Dioxide BUN Creatinine Glucose POC Glucose 177 H 178 H Lactic Acid Calcium Phosphorus Total Bilirubin C-Reactive Protein NT-Pro-B Natriuret Pep Total Protein Albumin Urine WBC (Auto) Urine Creatinine 08/13/18 08/13/18 08/14/18 17:33 21:28 01:58 WBC RBC Hgb Hct MCV MCH MCHC RDW Lymph % (Auto) [place] % (Auto) Lymph # [place] # Seg Neutrophils % Seg Neuts % (Manual) Lymphocytes % (Manual) Monocytes % (Manual) Nucleated RBC % Seg Neutrophils # Seg Neutrophils # Man Lymphocytes # (Manual) Monocytes # (Manual) PT INR APTT D-Dimer Heparin Anti-Xa Level POC ABG pH POC ABG pCO2 POC ABG pO2 Sodium Potassium Chloride Carbon Dioxide BUN Creatinine Glucose POC Glucose 130 H 145 H 161 H Lactic Acid Calcium Phosphorus Total Bilirubin C-Reactive Protein NT-Pro-B Natriuret Pep Total Protein Albumin Urine WBC (Auto) Urine Creatinine 08/14/18 08/14/18 08/14/18 05:22 06:10 09:59 WBC RBC Hgb Hct MCV MCH MCHC RDW Lymph % (Auto) [place] % (Auto) Lymph # [place] # Seg Neutrophils % Seg Neuts % (Manual) Lymphocytes % (Manual) Monocytes % (Manual) Nucleated RBC % Seg Neutrophils # Seg Neutrophils # Man Lymphocytes # (Manual) Monocytes # (Manual) PT INR APTT D-Dimer Heparin Anti-Xa Level POC ABG pH POC ABG pCO2 POC ABG pO2 Sodium Potassium Chloride Carbon Dioxide BUN Creatinine 0.5 L Glucose 125 H POC Glucose 117 H 107 H Lactic Acid Calcium Phosphorus Total Bilirubin C-Reactive Protein NT-Pro-B Natriuret Pep Total Protein Albumin Urine WBC (Auto) Urine Creatinine 08/14/18 08/14/18 08/14/18 14:04 17:49 21:27 WBC RBC Hgb Hct MCV MCH MCHC RDW Lymph % (Auto) [place] % (Auto) Lymph # [place] # Seg Neutrophils % Seg Neuts % (Manual) Lymphocytes % (Manual) Monocytes % (Manual) Nucleated RBC % Seg Neutrophils # Seg Neutrophils # Man Lymphocytes # (Manual) Monocytes # (Manual) PT INR APTT D-Dimer Heparin Anti-Xa Level POC ABG pH POC ABG pCO2 POC ABG pO2 Sodium Potassium Chloride Carbon Dioxide BUN Creatinine Glucose POC Glucose 137 H 150 H 149 H Lactic Acid Calcium Phosphorus Total Bilirubin C-Reactive Protein NT-Pro-B Natriuret Pep Total Protein Albumin Urine WBC (Auto) Urine Creatinine 08/14/18 08/15/18 08/15/18 21:55 01:50 03:12 WBC 13.3 H RBC 2.79 L Hgb 9.3 L 8.4 L Hct 28.6 L 25.7 L MCV 102 H MCH 33 H MCHC RDW 16.6 H Lymph % (Auto) [place] % (Auto) Lymph # [place] # Seg Neutrophils % Seg Neuts % (Manual) Lymphocytes % (Manual) Monocytes % (Manual) Nucleated RBC % Seg Neutrophils # Seg Neutrophils # Man Lymphocytes # (Manual) Monocytes # (Manual) PT INR APTT D-Dimer Heparin Anti-Xa Level POC ABG pH POC ABG pCO2 POC ABG pO2 Sodium Potassium Chloride Carbon Dioxide BUN Creatinine Glucose POC Glucose 186 H Lactic Acid Calcium Phosphorus Total Bilirubin C-Reactive Protein NT-Pro-B Natriuret Pep Total Protein Albumin Urine WBC (Auto) Urine Creatinine 08/15/18 08/15/18 08/15/18 09:55 11:45 13:47 WBC RBC 2.38 L Hgb 8.0 L Hct 24.5 L MCV 103 H MCH 34 H MCHC RDW 16.8 H Lymph % (Auto) 4.9 L [place] % (Auto) Lymph # 0.5 L [place] # Seg Neutrophils % 88.1 H Seg Neuts % (Manual) Lymphocytes % (Manual) Monocytes % (Manual) Nucleated RBC % Seg Neutrophils # 9.6 H Seg Neutrophils # Man Lymphocytes # (Manual) Monocytes # (Manual) PT INR APTT D-Dimer Heparin Anti-Xa Level POC ABG pH POC ABG pCO2 POC ABG pO2 Sodium Potassium Chloride Carbon Dioxide BUN Creatinine Glucose POC Glucose 133 H 142 H Lactic Acid Calcium Phosphorus Total Bilirubin C-Reactive Protein NT-Pro-B Natriuret Pep Total Protein Albumin Urine WBC (Auto) Urine Creatinine 08/15/18 08/15/18 08/16/18 17:54 21:58 02:20 WBC RBC Hgb Hct MCV MCH MCHC RDW Lymph % (Auto) [place] % (Auto) Lymph # [place] # Seg Neutrophils % Seg Neuts % (Manual) Lymphocytes % (Manual) Monocytes % (Manual) Nucleated RBC % Seg Neutrophils # Seg Neutrophils # Man Lymphocytes # (Manual) Monocytes # (Manual) PT INR APTT D-Dimer Heparin Anti-Xa Level POC ABG pH POC ABG pCO2 POC ABG pO2 Sodium Potassium Chloride Carbon Dioxide BUN Creatinine Glucose POC Glucose 131 H 157 H 108 H Lactic Acid Calcium Phosphorus Total Bilirubin C-Reactive Protein NT-Pro-B Natriuret Pep Total Protein Albumin Urine WBC (Auto) Urine Creatinine 08/16/18 08/16/18 08/16/18 05:16 10:20 10:23 WBC RBC Hgb Hct MCV MCH MCHC RDW Lymph % (Auto) [place] % (Auto) Lymph # [place] # Seg Neutrophils % Seg Neuts % (Manual) Lymphocytes % (Manual) Monocytes % (Manual) Nucleated RBC % Seg Neutrophils # Seg Neutrophils # Man Lymphocytes # (Manual) Monocytes # (Manual) PT INR APTT D-Dimer Heparin Anti-Xa Level POC ABG pH POC ABG pCO2 POC ABG pO2 63 L Sodium Potassium Chloride Carbon Dioxide BUN Creatinine Glucose POC Glucose 115 H 146 H Lactic Acid Calcium Phosphorus Total Bilirubin C-Reactive Protein NT-Pro-B Natriuret Pep Total Protein Albumin Urine WBC (Auto) Urine Creatinine Chest x-ray: image reviewed (stable RUL apical scarring and riht mid lung infiltrate) Allied health notes reviewed: RT
--- NOTE | 2018-08-16 12:49 | Progress Note ---
Assessment and Plan Assessment and plan: Sepsis. Previous Blood cultures reveal Streptococcus anginosus. New sepsis, fever with leucocytosis. ID started empiric IV Cefepime and will assess response Acute kidney injury. Etiology secondary to above. Continue to monitor creatinine. Left lower lobe pneumonia. Continue antibiotics and follow repeat chest x-ray. Sputum culture revealed Pseudomonas and MSSA Acute hypoxemic respiratory failure. Etiology secondary to above. Continue on mechanical ventilation and weaning per pulmonary. Patient is status post trach and PEG on 08/11/18. Patient tolerating CPAP this morning. Atrial fibrillation. Continue amiodarone and diltiazem. Cardiology following. REGAN negative. Cont. Eliquis Acute renal failure. Etiology likely secondary to sepsis/ATN. Renal ultrasound unremarkable. COPD exacerbation. Continue bronchodilators/nebulizers. IV steroids. Hypertension. Resume antihypertensive medications as needed. Hyperlipidemia. Peripheral vascular disease. The high probability of a clinically significant, sudden or life threatening deterioration of the [respiratory] system(s) required my full and direct attention, intervention and personal management. The aggregate critical care time was [32] minutes. This time is in addition to time spent performing reported procedures but includes the following: [x] Data Review and interpretation [x] Patient assessment and monitoring of vital signs [x] Documentation [x] Medication orders and management History Interval history: 73 YO Male with H/O COPD, PVD, HTN, HLD, Seizure Disorder, Skin Cancer presents to ED for evaluation. Pt states that he has experienced shortness and chest palpitations over the past 2 days with worsening symptoms over the past 1 day. Pt acknowledges decreased exercise tolerance, as well as dyspnea on exertion. 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 Pt denies fever, chills, leg swelling, calf pain, CP with deep breathing, hemoptysis, Prolonged air/car travel, or immobility, Back Pain, Syncope, Lightheadedness, recent ill contacts, unintentional weight loss, night sweats, or bone pain. Pt seen and evaluated in ED and found to have Atrial Fib with RVR refractory to cardizem drip, but improved with Amiodarone Drip, Acute Hypoxemic Respiratory Failure, SIRS. Pt admitted to ICU. The patient later after admission had further decompensation with respiratory distress. Patient reportedly was satting 60-70% on a nonrebreather and had to be emergently intubated. Hospitalist Physical - Constitutional Vitals: Temp Pulse Resp BP Pulse Ox 98.9 F 92 H 21 115/58 96 08/16/18 12:00 08/16/18 11:00 08/16/18 10:00 08/16/18 11:00 08/16/18 11:00 General appearance: Present: other (intubated on mechanical ventilation) - EENT Eyes: Present: PERRL, EOM intact ENT: hearing intact, clear oral mucosa, dentition normal - Neck Neck: Present: supple, normal ROM - Respiratory Respiratory effort: normal Respiratory: bilateral: CTA - Cardiovascular Rhythm: regular Heart Sounds: Present: S1 & S2. Absent: gallop, rub - Extremities Extremities: no ischemia, No edema, Full ROM - Abdominal General gastrointestinal: soft, non-tender, non-distended, normal bowel sounds - Integumentary Integumentary: Present: clear, warm, dry - Neurologic Neurologic: CNII-XII intact, moves all extremities Results - Labs CBC & Chem 7: 08/15/18 11:45 08/14/18 05:22 Labs: Laboratory Last Values WBC 10.9 K/mm3 (4.5-11.0) 08/15/18 11:45 RBC 2.38 M/mm3 (3.65-5.03) L 08/15/18 11:45 Hgb 8.0 gm/dl (11.8-15.2) L 08/15/18 11:45 Hct 24.5 % (35.5-45.6) L 08/15/18 11:45 MCV 103 fl (84-94) H 08/15/18 11:45 MCH 34 pg (28-32) H 08/15/18 11:45 MCHC 33 % (32-34) 08/15/18 11:45 RDW 16.8 % (13.2-15.2) H 08/15/18 11:45 Plt Count 269 K/mm3 (140-440) 08/15/18 11:45 Lymph % (Auto) 4.9 % (13.4-35.0) L 08/15/18 11:45 [place] % (Auto) 6.2 % (0.0-7.3) 08/15/18 11:45 Eos % (Auto) 0.4 % (0.0-4.3) 08/15/18 11:45 Baso % (Auto) 0.4 % (0.0-1.8) 08/15/18 11:45 Lymph # 0.5 K/mm3 (1.2-5.4) L 08/15/18 11:45 [place] # 0.7 K/mm3 (0.0-0.8) 08/15/18 11:45 Eos # 0.0 K/mm3 (0.0-0.4) 08/15/18 11:45 Baso # 0.0 K/mm3 (0.0-0.1) 08/15/18 11:45 Add Manual Diff Complete 08/08/18 02:09 Total Counted 100 08/08/18 02:09 Seg Neutrophils % 88.1 % (40.0-70.0) H 08/15/18 11:45 Seg Neuts % (Manual) 73.0 % (40.0-70.0) H 08/08/18 02:09 Band Neutrophils % 5.0 % 08/08/18 02:09 Lymphocytes % (Manual) 9.0 % (13.4-35.0) L 08/08/18 02:09 Reactive Lymphs % (Man) 0 % 08/08/18 02:09 Monocytes % (Manual) 10.0 % (0.0-7.3) H 08/08/18 02:09 Eosinophils % (Manual) 0 % (0.0-4.3) 08/08/18 02:09 Basophils % (Manual) 0 % (0.0-1.8) 08/08/18 02:09 Metamyelocytes % 3.0 % 08/08/18 02:09 Myelocytes % 0 % 08/08/18 02:09 Promyelocytes % 0 % 08/08/18 02:09 Blast Cells % 0 % 08/08/18 02:09 Nucleated RBC % Not Reportable 08/08/18 02:09 Seg Neutrophils # 9.6 K/mm3 (1.8-7.7) H 08/15/18 11:45 Seg Neutrophils # Man 10.7 K/mm3 (1.8-7.7) H 08/08/18 02:09 Band Neutrophils # 0.7 K/mm3 08/08/18 02:09 Lymphocytes # (Manual) 1.3 K/mm3 (1.2-5.4) 08/08/18 02:09 Abs React Lymphs (Man) 0.0 K/mm3 08/08/18 02:09 Monocytes # (Manual) 1.5 K/mm3 (0.0-0.8) H 08/08/18 02:09 Eosinophils # (Manual) 0.0 K/mm3 (0.0-0.4) 08/08/18 02:09 Basophils # (Manual) 0.0 K/mm3 (0.0-0.1) 08/08/18 02:09 Metamyelocytes # 0.4 K/mm3 08/08/18 02:09 Myelocytes # 0.0 K/mm3 08/08/18 02:09 Promyelocytes # 0.0 K/mm3 08/08/18 02:09 Blast Cells # 0.0 K/mm3 08/08/18 02:09 Pathologist Review 07/28/18 06:01 WBC Morphology Not Reportable 08/08/18 02:09 Hypersegmented Neuts Not Reportable 08/08/18 02:09 Hyposegmented Neuts Not Reportable 08/08/18 02:09 Hypogranular Neuts Not Reportable 08/08/18 02:09 Smudge Cells Not Reportable 08/08/18 02:09 Toxic Granulation Not Reportable 08/08/18 02:09 Toxic Vacuolation Not Reportable 08/08/18 02:09 Dohle Bodies Not Reportable 08/08/18 02:09 Pelger-Huet Anomaly Not Reportable 08/08/18 02:09 Janiya Rods Not Reportable 08/08/18 02:09 Platelet Estimate Appears normal 08/08/18 02:09 Clumped Platelets Not Reportable 08/08/18 02:09 Plt Clumps, EDTA Not Reportable 08/08/18 02:09 Large Platelets Not Reportable 08/08/18 02:09 Giant Platelets Not Reportable 08/08/18 02:09 Platelet Satelliting Not Reportable 08/08/18 02:09 Plt Morphology Comment Not Reportable 08/08/18 02:09 RBC Morphology Not Reportable 08/08/18 02:09 Dimorphic RBCs Not Reportable 08/08/18 02:09 Polychromasia Not Reportable 08/08/18 02:09 Hypochromasia Few 08/08/18 02:09 Poikilocytosis Not Reportable 08/08/18 02:09 Anisocytosis 1+ 08/08/18 02:09 Microcytosis Not Reportable 08/08/18 02:09 Macrocytosis Not Reportable 08/08/18 02:09 Spherocytes Not Reportable 08/08/18 02:09 Pappenheimer Bodies Not Reportable 08/08/18 02:09 Sickle Cells Not Reportable 08/08/18 02:09 Target Cells Not Reportable 08/08/18 02:09 Tear Drop Cells Not Reportable 08/08/18 02:09 Ovalocytes Not Reportable 08/08/18 02:09 Stomatocytes Few 08/08/18 02:09 Helmet Cells Not Reportable 08/08/18 02:09 Lr-[place] Bodies Not Reportable 08/08/18 02:09 [place] Rings Not Reportable 08/08/18 02:09 [place] Cells Not Reportable 08/08/18 02:09 Bite Cells Not Reportable 08/08/18 02:09 Crenated Cell Not Reportable 08/08/18 02:09 Elliptocytes Not Reportable 08/08/18 02:09 Acanthocytes (Spur) Not Reportable 08/08/18 02:09 Rouleaux Not Reportable 08/08/18 02:09 Hemoglobin C Crystals Not Reportable 08/08/18 02:09 Schistocytes Not Reportable 08/08/18 02:09 Malaria parasites Not Reportable 08/08/18 02:09 Jigar Bodies Not Reportable 08/08/18 02:09 Hem Pathologist Commnt No 08/08/18 02:09 PT 13.4 Sec. (12.2-14.9) 08/07/18 15:08 INR 0.98 (0.87-1.13) 08/07/18 15:08 APTT 23.2 Sec. (24.2-36.6) L 08/07/18 15:08 D-Dimer 798.17 ng/mlDDU (0-234) H 07/27/18 15:52 Heparin Anti-Xa Level 1.18 U.I./ml (0.3-0.7) H 08/12/18 14:56 POC ABG pH 7.432 (7.35-7.45) 08/16/18 10:23 POC ABG pCO2 44.9 (35-45) 08/16/18 10:23 POC ABG pO2 63 (80-105) L 08/16/18 10:23 POC ABG HCO3 29.9 08/16/18 10:23 POC ABG Total CO2 31 08/16/18 10:23 POC ABG O2 Sat 92 08/16/18 10:23 POC ABG Base Excess 6 08/16/18 10:23 FiO2 45 % 08/13/18 09:28 Sodium 140 mmol/L (137-145) 08/14/18 05:22 Potassium 3.7 mmol/L (3.6-5.0) 08/14/18 05:22 Chloride 99.3 mmol/L (98-107) 08/14/18 05:22 Carbon Dioxide 30 mmol/L (22-30) 08/14/18 05:22 Anion Gap 14 mmol/L 08/14/18 05:22 BUN 11 mg/dL (9-20) 08/14/18 05:22 Creatinine 0.5 mg/dL (0.8-1.5) L 08/14/18 05:22 Estimated GFR > 60 ml/min 08/14/18 05:22 BUN/Creatinine Ratio 22 % 08/14/18 05:22 Glucose 125 mg/dL (75-100) H 08/14/18 05:22 POC Glucose 146 (70-105) H 08/16/18 10:20 Lactic Acid 1.30 mmol/L (0.7-2.0) 08/03/18 16:48 Calcium 8.7 mg/dL (8.4-10.2) 08/14/18 05:22 Phosphorus 2.80 mg/dL (2.5-4.5) 08/06/18 05:17 Magnesium 2.30 mg/dL (1.7-2.3) 08/06/18 05:17 Total Bilirubin 1.30 mg/dL (0.1-1.2) H 07/27/18 12:59 AST 15 units/L (5-40) 07/27/18 12:59 ALT 16 units/L (7-56) 07/27/18 12:59 Alkaline Phosphatase 62 units/L (35-129) 07/27/18 12:59 Troponin T < 0.010 ng/mL (0.00-0.029) 07/27/18 12:59 C-Reactive Protein 2.30 mg/dL (0.00-1.30) H 08/03/18 16:48 NT-Pro-B Natriuret Pep 3913 pg/mL (0-900) H 07/27/18 12:59 Total Protein 6.2 g/dL (6.3-8.2) L 07/27/18 12:59 Albumin 3.6 g/dL (3.9-5) L 07/27/18 12:59 Albumin/Globulin Ratio 1.4 % 07/27/18 12:59 Triglycerides 64 mg/dL (2-149) 08/08/18 14:02 TSH 1.180 mlU/mL (0.270-4.200) 07/27/18 15:52 Free T4 1.28 ng/dL (0.76-1.46) 07/27/18 15:52 Urine Color Yellow (Yellow) 08/11/18 12:50 Urine Turbidity Clear (Clear) 08/11/18 12:50 Urine pH 6.0 (5.0-7.0) 08/11/18 12:50 Ur Specific [place] 1.015 (1.003-1.030) 08/11/18 12:50 Urine Protein <15 mg/dl mg/dL (Negative) 08/11/18 12:50 Urine Glucose (UA) 50 mg/dL (Negative) 08/11/18 12:50 Urine Ketones Neg mg/dL (Negative) 08/11/18 12:50 Urine Blood Neg (Negative) 08/11/18 12:50 Urine Nitrite Neg (Negative) 08/11/18 12:50 Urine Bilirubin Neg (Negative) 08/11/18 12:50 Urine Urobilinogen 4.0 mg/dL (<2.0) 08/11/18 12:50 Ur Leukocyte Esterase Neg (Negative) 08/11/18 12:50 Urine WBC (Auto) 2.0 /HPF (0.0-6.0) 08/11/18 12:50 Urine RBC (Auto) 2.0 /HPF (0.0-6.0) 08/11/18 12:50 U Epithel Cells (Auto) 2.0 /HPF (0-13.0) 07/29/18 09:24 Urine Bacteria (Auto) 1+ /HPF (Negative) 08/11/18 12:50 Urine Mucus Few /HPF 08/11/18 12:50 Urine Yeast (Budding) 1+ /HPF 07/29/18 09:24 Urine Creatinine 72.3 mg/dL (0.1-20.0) H 07/29/18 09:24 Urine Sodium 12 mmol/L 07/29/18 09:24 Random Vancomycin 9.2 ug/mL (0-40.0) 07/29/18 04:21 Nutrition/Malnutrition Assess - Dietary Evaluation Nutrition/Malnutrition Findings: Nutrition Notes Start: 07/28/18 10:54 Freq: Status: Active Protocol: Document 08/16/18 10:40 OL (Rec: 08/16/18 10:42 OL [id number]) Nutrition Notes Initial or Follow up Reassessment Current Diagnoses Acute Kidney Injury COPD Sepsis Hypertension Heart Failure Respiratory Failure Other Pertinent Diagnosis Hx of Skin Cancer Current Diet Nepro at 50ml/hr Labs/Tests Reviewed Medications Reviewed Height 5 ft 8 in Weight 85.1 kg [place] Body Weight (lbs) 154.0 BMI 28.5 Subjective/Other Information Nepro infusing at goal rate of 50mL/hr, well tolerated Burn Absent Trauma Absent #1 Nutrition Diagnoses Inadequate oral intake Diagnosis Progress(for reassessment Continues documentation) Is patient on ventilator? Yes Is Patient Ambulatory and/or Out of Bed No REE-([facility]-confined to bed) [phone] Calculation Used for Recommendations [facility] Additional Notes protein (1.2-2g/kg): 102-170g fluid: 1mL/kcal Nutrition Intervention Change Diet Order: Continue TF Nutrition Support: Nepro at 50mL/hr 250 mL free water flush q4h or per MD. Kcal 2,160 Protein (gm) 97 Fluid (mL) 872 Goal #1 TF tolerance and rate Goal #2 Meet at least 80% of kcal needs and 80-100% of protein needs. Follow-Up By: 08/23/18 Additional Comments f/u: stable TF
[2018-08-16 12:56] LABS: Basophils % (Auto) 0.4 % (0.0-1.8); Eosinophils # (Auto) 0.1 K/mm3 (0.0-0.4); Eosinophils % (Auto) 0.6 % (0.0-4.3); Hematocrit 28.8 % (35.5-45.6); Hemoglobin 9.2 gm/dl (11.8-15.2); Lymphocytes # (Auto) 0.4 K/mm3 (1.2-5.4); Lymphocytes % (Auto) 3.8 % (13.4-35.0); Mean Corpuscular HGB Conc 32 % (32-34); Mean Corpuscular Volume 102 fl (84-94); Monocytes # (Auto) 0.6 K/mm3 (0.0-0.8); Monocytes % (Auto) 5.7 % (0.0-7.3); Platelet Count 292 K/mm3 (140-440); Red Blood Count 2.82 M/mm3 (3.65-5.03); Red Cell Distribution Width 16.4 % (13.2-15.2)
--- NOTE | 2018-08-16 13:24 | Event Note ---
Date: 08/16/18 no new cardiac complaints/issues vss chest diminished breath sounds cor rrr cardiac status stable awaiting ltac no new cardiac rec at this time. per pulmonary
--- NOTE | 2018-08-16 14:40 | Progress Note ---
Assessment and Plan Cultures: 07/27/2018 tracheal aspirate culture: Pseudomonas aeruginosa, MSSA 07/28/2018 blood culture: 4 out of 4 bottles positive for Streptococcus anginosus 07/28/2018 fungal blood culture: In progress but no growth thus far 07/29/2018 urine culture: No growth 08/01/2018 blood culture: negative thus far 08/11/2018 blood culture: in process 08/11/2018 urine culture: no growth 08/15/2018 sputum culture: pending. A/P: 73-year-old male with COPD, peripheral vascular disease, hypertension, hyperlipidemia, seizure disorder admitted with: 1) Streptococcus anginosus bacteremia: 4/4 bottles, present on admission. Source unclear. Patient does have evidence of pneumonia however sputum cultures not concordant and grew pseudomonas aeruginosa and MSSA. REGAN was negative. Previously received Ceftriaxone and Vancomycin, followed by Cefepime, completed. 2) Acute respiratory failure secondary to congestive heart failure and pneumonia: completed IV cefepime x 10 days to cover both MSSA and Pseudomonas. now s/p trach and PEG. 3) CARLEE, present on admission, now resolved. 4) New sepsis, fever with leucocytosis: Likely from new right sided pneumonia. Continue empiric IV Cefepime and follow up sputum culture results. WBC and fever improving. Recs: Continue empiric IV Cefepime and follow up sputum culture results WBC and fever improving. Will follow. Rhea Ro MD [facility] C: [phone] O: [phone] F: [phone] Subjective Date of service: 08/16/18 Principal diagnosis: Acute hypoxemic respiratory failure; A-fib with RVR; Possible CHF; H/O DVT Interval history: Up sitting in a chair. Feeling better. Cough +, trach secretions +. Objective - Exam Narrative Exam: Physical Exam: Constitutional: awake, communicative, sitting in a chair. Head, Ears, Nose: Normocephalic, atraumatic. External ears, nose normal Eyes: Conjunctivae/corneas clear. No icterus. No ptosis. Neck: trach + Oral:no thrush, no ulcers Cardiovascular: S1, S2 normal Respiratory: few scattered rhonchi, no crackles GI: Soft, bowel sounds normal. No peritoneal signs. PEG tube + Musculoskeletal: no pedal edema, no cyanosis. Skin: No rash or abscess Hem/Lymphatic: No palpable cervical or supraclavicular nodes. No lymphangitis Psych: no agitation Neurological: awake, able to communicate, follow commands - Constitutional Vitals: Vital Signs Temp Pulse Resp BP Pulse Ox 98.9 F 92 H 21 115/58 96 08/16/18 12:00 08/16/18 11:00 08/16/18 10:00 08/16/18 11:00 08/16/18 11:00 Temperature -Last 24 Hours Temperature 98.9 F Temperature 99.3 F Temperature 99.2 F Temperature 98.9 F Temperature 99.4 F Temperature 98.8 F Temperature 98.8 F - Labs CBC & Chem 7: 08/16/18 11:06 08/14/18 05:22 Labs: Abnormal lab results 08/15/18 08/15/18 08/15/18 Range/Units 11:45 17:54 21:58 RBC 2.38 L (3.65-5.03) M/mm3 Hgb 8.0 L (11.8-15.2) gm/dl Hct 24.5 L (35.5-45.6) % MCV 103 H (84-94) fl MCH 34 H (28-32) pg RDW 16.8 H (13.2-15.2) % Lymph % (Auto) 4.9 L (13.4-35.0) % Lymph # 0.5 L (1.2-5.4) K/mm3 Seg Neutrophils % 88.1 H (40.0-70.0) % Seg Neutrophils # 9.6 H (1.8-7.7) K/mm3 POC ABG pO2 (80-105) POC Glucose 131 H 157 H (70-105) 08/16/18 08/16/18 08/16/18 Range/Units 02:20 05:16 10:20 RBC (3.65-5.03) M/mm3 Hgb (11.8-15.2) gm/dl Hct (35.5-45.6) % MCV (84-94) fl MCH (28-32) pg RDW (13.2-15.2) % Lymph % (Auto) (13.4-35.0) % Lymph # (1.2-5.4) K/mm3 Seg Neutrophils % (40.0-70.0) % Seg Neutrophils # (1.8-7.7) K/mm3 POC ABG pO2 (80-105) POC Glucose 108 H 115 H 146 H (70-105) 08/16/18 08/16/18 08/16/18 Range/Units 10:23 11:06 14:05 RBC 2.82 L (3.65-5.03) M/mm3 Hgb 9.2 L (11.8-15.2) gm/dl Hct 28.8 L (35.5-45.6) % MCV 102 H (84-94) fl MCH 33 H (28-32) pg RDW 16.4 H (13.2-15.2) % Lymph % (Auto) 3.8 L (13.4-35.0) % Lymph # 0.4 L (1.2-5.4) K/mm3 Seg Neutrophils % 89.5 H (40.0-70.0) % Seg Neutrophils # 9.1 H (1.8-7.7) K/mm3 POC ABG pO2 63 L (80-105) POC Glucose 139 H (70-105) - Imaging and cardiology Chest x-ray: report reviewed, image reviewed (bilateral pneumonia, right seems new.)
[2018-08-16] MEDS: LANTUS SUB-Q SCH (22:05)
[2018-08-17 05:38] LABS: BUN/Creatinine Ratio 28; Blood Urea Nitrogen 14 mg/dL (9-20); Calcium 8.9 mg/dL (8.4-10.2); Hemolysis Index 5
[2018-08-17] MEDS: HumaLOG SUB-Q SCH ×6 (06:49→22:08)
[2018-08-17] MEDS: MAXIPIME/NS 2 GM/100 ML 2 GM/100 ML BAG IV SCH ×3 (06:50→21:59)
[2018-08-17] MEDS: PULMICORT IH SCH ×2 (09:45→19:50)
[2018-08-17] MEDS: BROVANA NEBU IH SCH ×2 (09:45→19:50)
--- NOTE | 2018-08-17 09:50 | Progress Note ---
Assessment and Plan 1. Acute kidney injury: Likely Vasomotor / hemodynamic CARLEE in the setting of A.fib with RVR. Renal function has improved and stable. 2. FEN: Hypernatremia, improved. Continue water flushes. Monitor. 3. A.fib: On Amiodarone and Cardizem. 4. Respiratory failure: S/p Trach. 5. Hematuria: S/p Cysto. Subjective Date of service: 08/17/18 Principal diagnosis: Acute hypoxemic respiratory failure; A-fib with RVR; Possible CHF; H/O DVT Interval history: Patient was seen and examined at the bedside. Objective - Vital Signs Vital signs: Vital Signs - 12hr 08/16/18 08/16/18 08/16/18 22:00 22:46 23:00 Temperature Pulse Rate 81 78 93 H Pulse Rate [ Bilateral] Pulse Rate [ From Monitor] Respiratory 20 18 25 H Rate Respiratory Rate [Bilateral ] Blood Pressure 104/56 104/56 136/71 O2 Sat by Pulse 94 96 97 Oximetry 08/16/18 08/16/18 08/17/18 23:40 23:47 00:00 Temperature 99 F Pulse Rate 93 H 81 Pulse Rate [ Bilateral] Pulse Rate [ From Monitor] Respiratory 20 Rate Respiratory Rate [Bilateral ] Blood Pressure 104/56 112/59 O2 Sat by Pulse 98 95 Oximetry 08/17/18 08/17/18 08/17/18 00:25 01:00 02:00 Temperature Pulse Rate 81 79 Pulse Rate [ Bilateral] Pulse Rate [ 81 From Monitor] Respiratory 19 22 19 Rate Respiratory Rate [Bilateral ] Blood Pressure 117/61 110/58 O2 Sat by Pulse 96 95 96 Oximetry 08/17/18 08/17/18 08/17/18 03:00 03:20 03:29 Temperature 98.7 F Pulse Rate 80 97 H Pulse Rate [ Bilateral] Pulse Rate [ From Monitor] Respiratory 20 Rate Respiratory Rate [Bilateral ] Blood Pressure 113/61 113/61 O2 Sat by Pulse 95 97 Oximetry 08/17/18 08/17/18 08/17/18 04:00 05:00 06:00 Temperature Pulse Rate 79 114 H 117 H Pulse Rate [ Bilateral] Pulse Rate [ 79 From Monitor] Respiratory 19 22 25 H Rate Respiratory Rate [Bilateral ] Blood Pressure 119/60 118/63 117/65 O2 Sat by Pulse 95 93 94 Oximetry 01/10/0408/17/18 08/17/18 07:54 09:45 09:46 Temperature 99.3 F Pulse Rate 86 Pulse Rate [ 88 Bilateral] Pulse Rate [ From Monitor] Respiratory Rate Respiratory 12 Rate [Bilateral ] Blood Pressure 118/67 O2 Sat by Pulse 96 Oximetry - General Appearance General appearance: well-developed, appears stated age, other (trached, on T- piece) EENT: ATNC, PERRL, hearing intact Neck: supple Respiratory: Present: Clear to Ascultation Cardiology: regular, S1S2, no murmurs Gastrointestinal: normoactive bowel sounds, no tenderness, no distended, other (PEG tube) Integumentary: other (no edema) Neurologic: other (able to move extremities) Musculoskeletal: other (no edema) - Lab 08/16/18 11:06 08/17/18 03:51 Most recent lab results Calcium 8.9 mg/dL (8.4-10.2) 08/17/18 03:51 Phosphorus 2.80 mg/dL (2.5-4.5) 08/06/18 05:17 Magnesium 2.30 mg/dL (1.7-2.3) 08/06/18 05:17 Urine Creatinine 72.3 mg/dL (0.1-20.0) H 07/29/18 09:24 Urine Sodium 12 mmol/L 07/29/18 09:24 Medications & Allergies - Medications Allergies/Adverse Reactions: Allergies No Known Allergies Allergy (Verified 12/12/13 06:46) Home Medications: Home Medications Medication Instructions Recorded Confirmed Last Taken Type Pravastatin Sodium 40 mg PO DAILY 12/12/13 07/27/18 07/27/18 History Clopidogrel [Plavix] 75 mg PO DAILY #30 tablet 04/03/15 07/27/18 07/27/18 Rx amLODIPine [Norvasc] 10 mg PO DAILY #30 tablet 04/03/15 07/27/18 07/27/18 Rx Fluticasone/Salmeterol [Advair 1 puff IH BID 12/31/15 07/27/18 07/27/18 History Diskus 250-50 mcg] ALBUTEROL Inhaler (OR & NICU) 2 puff IH QID PRN 07/27/18 07/27/18 Unknown History [Proair] Aspirin [Aspirin BABY CHEW TAB] 81 mg PO DAILY 07/27/18 07/27/18 07/27/18 History Cyanocobalamin (Vitamin B-12) 2,500 mcg PO DAILY 07/27/18 07/27/18 07/27/18 History [Vitamin B12] [place]-3S/Dha/Epa/Fish Oil/D3 [Fish 1 each PO DAILY 07/27/18 07/27/18 07/27/18 History Nuq-Sizty-0-Vit D Softgel] Active Medications: Generic Name Dose Route Start Last Admin Trade Name Freq PRN Reason Stop Dose Admin Acetaminophen 650 mg 08/11/18 12:07 08/16/18 09:01 Tylenol FEEDTUBE 650 mg Q6H PRN Administration Temp > or = 100.4 Amiodarone HCl 200 mg 07/29/18 14:00 08/16/18 22:08 Cordarone PO 200 mg BID IGNACIO Administration Lipase/Protease/Amylase 1 each 08/12/18 14:11 Pancreazchava Mccarthy 10,500 Unit FEEDTUBE PRN PRN For Clogged Feeding Tube Apixaban 5 mg 08/12/18 14:00 08/16/18 22:07 Eliquis PO 5 mg Q12HR IGNACIO Administration Protocol Arformoterol Tartrate 15 mcg 07/27/18 20:00 08/17/18 09:45 Brovana Nebu IH 15 mcg Q12HRT IGNACIO Administration Budesonide 0.5 mg 07/27/18 20:00 08/17/18 09:45 Pulmicort IH 0.5 mg Q12HRT IGNACIO Administration Cyanocobalamin 2,500 mcg 07/28/18 10:00 08/16/18 09:02 Vitamin B-12 PO 2,500 mcg QDAY IGNACIO Administration Dextrose 50 ml 08/10/18 05:31 08/10/18 05:23 D50w (25gm) Syringe IV 50 ml PRN PRN Administration Hypoglycemia Diltiazem HCl 60 mg 08/05/18 12:00 08/14/18 19:50 Cardizem PO 60 mg Q4H IGNACIO Administration Famotidine 20 mg 08/01/18 10:00 08/16/18 22:08 Pepcid PO 20 mg BID IGNACIO Administration Fentanyl 50 mcg 08/12/18 13:01 08/14/18 22:46 Sublimaze IV 50 mcg Q2H PRN Administration Pain , Severe (7-10) Hydrophilic Ointment 1 applic 07/27/18 20:09 08/13/18 04:25 Vaseline Lip Therapy TP 1 applic Q2HR PRN Administration Dry Lips Cefepime HCl 2 gm in 100 mls @ 200 mls/hr 08/15/18 17:00 08/17/18 06:50 Maxipime/Ns 2 Gm/100 Ml IV 200 mls/hr Q8HR IGNACIO Administration Protocol Insulin Glargine 20 units 08/05/18 22:00 08/16/18 22:05 Lantus SUB-Q 20 units QHS IGNACIO Administration Insulin Human Lispro 0 unit 07/29/18 07:00 08/17/18 06:50 Humalog SUB-Q Not Given Q4HR [facility] Protocol Multi-Ingred Cream/Lotion/Oil/Oint 1 applic 07/27/18 20:09 Artificial Tears Ophth Oint OU Q4HR PRN Dry Eye(s) Pravastatin Sodium 40 mg 07/28/18 10:00 08/16/18 09:03 Pravachol PO 40 mg DAILY IGNACIO Administration Quetiapine Fumarate 200 mg 08/13/18 22:00 08/16/18 22:08 Seroquel PO 200 mg BID IGNACIO Administration Quetiapine Fumarate 100 mg 08/13/18 22:00 08/16/18 22:08 Seroquel PO 100 mg QHS IGNACIO Administration Simple Syrup 15 ml 08/12/18 14:11 Simple Syrup FEEDTUBE PRN PRN Hypoglycemia Simple Syrup 30 ml 08/12/18 14:11 Simple Syrup FEEDTUBE PRN PRN Hypoglycemia Sodium Bicarbonate 325 mg 08/12/18 14:11 Sodium Bicarbonate FEEDTUBE PRN PRN For Clogged Feeding Tube Sodium Chloride 10 ml 07/27/18 22:00 08/16/18 22:09 Sodium Chloride Flush Syringe 10 Ml IV 10 ml BID IGNACIO Administration Sodium Chloride 10 ml 07/27/18 15:59 Sodium Chloride Flush Syringe 10 Ml IV PRN PRN LINE FLUSH
--- NOTE | 2018-08-17 11:16 | Progress Note ---
Assessment and Plan Acute hypoxemic respiratory failure, on mechanical ventilatory support. Atrial fibrillation with rapid ventricular response. Possible congestive heart failure with an acute exacerbation. 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 Elevated D-dimer. Leukocytosis. Sepsis syndrome with hypotension and fevers this morning. Chronic obstructive lung disease with an acute exacerbation. Hypernatremia Peripheral vascular disease. Mixed acidosis, respiratory and metabolic. Acute kidney injury. Lactic acidosis. Elevated BNP level of 3913. History of hypertension. History of arthritis. - continue RTC t-piece as tolerated henceforth - rest on MVS if tires out - continue seroquel at current dose - hypernatremia resolved - continue Lantus insulin with SSI for glycemic control - tapered off solumedrol - VAP bundle addressed - titrate sedatives for RASS 0 to -1 - PT/OT evaluation ongoing (up in chair daily) - continue enteral nutrition as tolerated - continue supplemental oxygen to keep sats >/= 90% - aspiration precautions - continue bronchodilators with routine trach care and pulmonary hygiene per RT - continue therapeutic anticoagulation - continue stress ulcer prophylaxis - continue Antibiotics to complete course - continue mobility protocol for pressure ulcer prevention - continue pother care per attending / other consultants - d/c planning for LTAC care is appropriate .... re-evaluate in am & prn ... care plan discussed with patient and caregiver in room FULL CODE STATUS CONDITION: CRITICAL The high probability of a clinically significant, sudden or life-threatening deterioration of the [respiratory, cardiovascular, renal] system(s) required my full and direct attention, intervention and personal management. The aggregate critical care time was [32] minutes without overlap. Time includes spent on; [x] Data Review and interpretation [x] Patient assessment and monitoring of vital signs [x] Documentation [x] Medication orders and management Subjective Date of service: 08/17/18 Principal diagnosis: Acute hypoxemic respiratory failure; A-fib with RVR; Possible CHF; H/O DVT Interval history: Patient is seen today for: Acute hypoxemic respiratory failure on MVS; Atrial fibrillation with RVR; Possible congestive heart failure with an acute exacerbation; History of deep venous thrombosis; Elevated D-dimer. Seen and examined at bedside; 24hour events reviewed; nursing and respiratory care staff consulted; no adverse overnight events reported to me; placed on t-pi juan r and tolerating well so far; denies acute chest pains or palpitations; no gross bleeding Objective Vital Signs - 12hr 08/16/18 08/16/18 08/17/18 23:40 23:47 00:00 Temperature 99 F Pulse Rate 93 H 81 Pulse Rate [ Bilateral] Pulse Rate [ From Monitor] Respiratory 20 Rate Respiratory Rate [Bilateral ] Blood Pressure 104/56 112/59 O2 Sat by Pulse 98 95 Oximetry 08/17/18 08/17/18 08/17/18 00:25 01:00 02:00 Temperature Pulse Rate 81 79 Pulse Rate [ Bilateral] Pulse Rate [ 81 From Monitor] Respiratory 19 22 19 Rate Respiratory Rate [Bilateral ] Blood Pressure 117/61 110/58 O2 Sat by Pulse 96 95 96 Oximetry 08/17/18 08/17/18 08/17/18 03:00 03:20 03:29 Temperature 98.7 F Pulse Rate 80 97 H Pulse Rate [ Bilateral] Pulse Rate [ From Monitor] Respiratory 20 Rate Respiratory Rate [Bilateral ] Blood Pressure 113/61 113/61 O2 Sat by Pulse 95 97 Oximetry 08/17/18 08/17/18 08/17/18 04:00 05:00 06:00 Temperature Pulse Rate 79 114 H 117 H Pulse Rate [ Bilateral] Pulse Rate [ 79 From Monitor] Respiratory 19 22 25 H Rate Respiratory Rate [Bilateral ] Blood Pressure 119/60 118/63 117/65 O2 Sat by Pulse 95 93 94 Oximetry 08/17/18 08/17/18 08/17/18 07:00 07:54 08:00 Temperature 99.3 F Pulse Rate 85 88 Pulse Rate [ Bilateral] Pulse Rate [ From Monitor] Respiratory 18 13 Rate Respiratory Rate [Bilateral ] Blood Pressure 109/61 121/64 O2 Sat by Pulse 98 94 Oximetry 08/17/18 08/17/18 08/17/18 09:00 09:45 09:46 Temperature Pulse Rate 85 86 Pulse Rate [ 88 Bilateral] Pulse Rate [ From Monitor] Respiratory 19 Rate Respiratory 12 Rate [Bilateral ] Blood Pressure 118/67 118/67 O2 Sat by Pulse 96 Oximetry 08/17/18 08/17/18 09:53 10:00 Temperature Pulse Rate 89 Pulse Rate [ Bilateral] Pulse Rate [ From Monitor] Respiratory 36 H Rate Respiratory Rate [Bilateral ] Blood Pressure 130/66 O2 Sat by Pulse 96 94 Oximetry Constitutional: appears uncomfortable, other (elderly looking CM, normocephalic and atraumatic with normal respiratory effort) Eyes: non-icteric ENT: oropharynx moist, other (s/p tracheosomy) Neck: supple, no lymphadenopathy, no JVD, other (No thyromegaly) Effort: mildly labored Ascultation: Bilateral: diminished breath sounds, rhonchi Percussion: Bilateral: not dull Cardiovascular: irregular rhythm, other (+ systolic murmur) Gastrointestinal: hypoactive bowel sounds, soft, non-tender, non-distended, other (No palpable HSM) Integumentary: rash, other (upper extremity edema) Extremities: no cyanosis, pink and warm, pulses normal, no ischemia or petechiae Neurologic: normal mental status, non-focal exam (grossly), pupils equal and round, other (moves all extemities) Psychiatric: mood appropriate, affect normal CBC and BMP: 08/19/18 04:55 08/19/18 04:55 ABG, PT/INR, D-dimer: ABG POC ABG pH 7.432 (7.35-7.45) 08/16/18 10:23 POC ABG pCO2 44.9 (35-45) 08/16/18 10:23 POC ABG pO2 63 (80-105) L 08/16/18 10:23 POC ABG HCO3 29.9 08/16/18 10:23 POC ABG Total CO2 31 08/16/18 10:23 POC ABG O2 Sat 92 08/16/18 10:23 PT/INR, D-dimer PT 13.4 Sec. (12.2-14.9) 08/07/18 15:08 INR 0.98 (0.87-1.13) 08/07/18 15:08 D-Dimer 798.17 ng/mlDDU (0-234) H 07/27/18 15:52 Abnormal lab findings: Abnormal Labs 07/27/18 07/27/18 07/27/18 12:59 12:59 12:59 WBC 15.8 H RBC Hgb Hct MCV 104 H MCH 34 H MCHC RDW 16.3 H Lymph % (Auto) [place] % (Auto) Lymph # [place] # Seg Neutrophils % Seg Neuts % (Manual) 88.0 H Lymphocytes % (Manual) 3.0 L Monocytes % (Manual) Nucleated RBC % Seg Neutrophils # Seg Neutrophils # Man 13.9 H Lymphocytes # (Manual) 0.5 L Monocytes # (Manual) PT 17.0 H INR 1.34 H APTT D-Dimer Heparin Anti-Xa Level POC ABG pH POC ABG pCO2 POC ABG pO2 Sodium Potassium Chloride Carbon Dioxide 21 L BUN 38 H Creatinine 1.6 H Glucose POC Glucose Lactic Acid Calcium Phosphorus Total Bilirubin 1.30 H C-Reactive Protein NT-Pro-B Natriuret Pep 3913 H Total Protein 6.2 L Albumin 3.6 L Urine WBC (Auto) Urine Creatinine 07/27/18 07/27/18 07/27/18 15:52 16:12 17:09 WBC RBC Hgb Hct MCV MCH MCHC RDW Lymph % (Auto) [place] % (Auto) Lymph # [place] # Seg Neutrophils % Seg Neuts % (Manual) Lymphocytes % (Manual) Monocytes % (Manual) Nucleated RBC % Seg Neutrophils # Seg Neutrophils # Man Lymphocytes # (Manual) Monocytes # (Manual) PT 16.0 H INR 1.24 H APTT D-Dimer 798.17 H Heparin Anti-Xa Level POC ABG pH POC ABG pCO2 POC ABG pO2 Sodium Potassium Chloride Carbon Dioxide BUN Creatinine Glucose POC Glucose Lactic Acid 5.00 H* Calcium Phosphorus Total Bilirubin C-Reactive Protein NT-Pro-B Natriuret Pep Total Protein Albumin Urine WBC (Auto) Urine Creatinine 07/27/18 07/27/18 07/27/18 17:59 18:07 21:31 WBC RBC Hgb Hct MCV MCH MCHC RDW Lymph % (Auto) [place] % (Auto) Lymph # [place] # Seg Neutrophils % Seg Neuts % (Manual) Lymphocytes % (Manual) Monocytes % (Manual) Nucleated RBC % Seg Neutrophils # Seg Neutrophils # Man Lymphocytes # (Manual) Monocytes # (Manual) PT INR APTT D-Dimer Heparin Anti-Xa Level POC ABG pH 7.344 L POC ABG pCO2 POC ABG pO2 36 L Sodium Potassium Chloride Carbon Dioxide BUN Creatinine Glucose POC Glucose Lactic Acid 5.20 H* 5.00 H* Calcium Phosphorus Total Bilirubin C-Reactive Protein NT-Pro-B Natriuret Pep Total Protein Albumin Urine WBC (Auto) Urine Creatinine 07/27/18 07/27/18 07/27/18 21:57 22:42 23:26 WBC RBC Hgb Hct MCV MCH MCHC RDW Lymph % (Auto) [place] % (Auto) Lymph # [place] # Seg Neutrophils % Seg Neuts % (Manual) Lymphocytes % (Manual) Monocytes % (Manual) Nucleated RBC % Seg Neutrophils # Seg Neutrophils # Man Lymphocytes # (Manual) Monocytes # (Manual) PT INR APTT D-Dimer Heparin Anti-Xa Level POC ABG pH 7.199 L POC ABG pCO2 62.0 H POC ABG pO2 Sodium Potassium Chloride Carbon Dioxide BUN Creatinine Glucose POC Glucose Lactic Acid 4.70 H* 5.00 H* Calcium Phosphorus Total Bilirubin C-Reactive Protein NT-Pro-B Natriuret Pep Total Protein Albumin Urine WBC (Auto) Urine Creatinine 07/28/18 07/28/18 07/28/18 00:45 05:40 05:58 WBC RBC Hgb Hct MCV MCH MCHC RDW Lymph % (Auto) [place] % (Auto) Lymph # [place] # Seg Neutrophils % Seg Neuts % (Manual) Lymphocytes % (Manual) Monocytes % (Manual) Nucleated RBC % Seg Neutrophils # Seg Neutrophils # Man Lymphocytes # (Manual) Monocytes # (Manual) PT INR APTT D-Dimer Heparin Anti-Xa Level 0.11 L POC ABG pH 7.186 L POC ABG pCO2 60.1 H POC ABG pO2 68 L Sodium Potassium Chloride Carbon Dioxide BUN Creatinine Glucose POC Glucose Lactic Acid 4.70 H* Calcium Phosphorus Total Bilirubin C-Reactive Protein NT-Pro-B Natriuret Pep Total Protein Albumin Urine WBC (Auto) Urine Creatinine 07/28/18 07/28/18 07/28/18 06:01 06:01 07:19 WBC 12.5 H RBC 3.51 L Hgb 11.5 L Hct MCV 104 H MCH 33 H MCHC RDW 16.6 H Lymph % (Auto) [place] % (Auto) Lymph # [place] # Seg Neutrophils % Seg Neuts % (Manual) Lymphocytes % (Manual) Monocytes % (Manual) Nucleated RBC % Seg Neutrophils # Seg Neutrophils # Man Lymphocytes # (Manual) Monocytes # (Manual) PT INR APTT D-Dimer Heparin Anti-Xa Level 0.14 L POC ABG pH POC ABG pCO2 POC ABG pO2 Sodium 135 L Potassium 5.1 H Chloride 95.0 L Carbon Dioxide 21 L BUN 54 H Creatinine 2.6 H D Glucose POC Glucose Lactic Acid Calcium Phosphorus Total Bilirubin C-Reactive Protein NT-Pro-B Natriuret Pep Total Protein Albumin Urine WBC (Auto) Urine Creatinine 07/28/18 07/28/18 07/28/18 07:19 09:20 11:06 WBC RBC Hgb Hct MCV MCH MCHC RDW Lymph % (Auto) [place] % (Auto) Lymph # [place] # Seg Neutrophils % Seg Neuts % (Manual) Lymphocytes % (Manual) Monocytes % (Manual) Nucleated RBC % Seg Neutrophils # Seg Neutrophils # Man Lymphocytes # (Manual) Monocytes # (Manual) PT INR APTT D-Dimer Heparin Anti-Xa Level POC ABG pH 7.266 L POC ABG pCO2 49.7 H POC ABG pO2 74 L Sodium Potassium Chloride Carbon Dioxide BUN Creatinine Glucose POC Glucose Lactic Acid 4.00 H* 3.90 H* Calcium Phosphorus Total Bilirubin C-Reactive Protein NT-Pro-B Natriuret Pep Total Protein Albumin Urine WBC (Auto) Urine Creatinine 07/28/18 07/28/18 07/28/18 15:06 20:45 23:36 WBC RBC Hgb Hct MCV MCH MCHC RDW Lymph % (Auto) [place] % (Auto) Lymph # [place] # Seg Neutrophils % Seg Neuts % (Manual) Lymphocytes % (Manual) Monocytes % (Manual) Nucleated RBC % Seg Neutrophils # Seg Neutrophils # Man Lymphocytes # (Manual) Monocytes # (Manual) PT INR APTT D-Dimer Heparin Anti-Xa Level 0.15 L POC ABG pH POC ABG pCO2 POC ABG pO2 Sodium 134 L Potassium 5.2 H Chloride Carbon Dioxide BUN 58 H Creatinine 2.1 H Glucose 110 H POC Glucose 125 H Lactic Acid Calcium Phosphorus Total Bilirubin C-Reactive Protein NT-Pro-B Natriuret Pep Total Protein Albumin Urine WBC (Auto) Urine Creatinine 07/29/18 07/29/18 07/29/18 01:12 04:21 04:21 WBC RBC 3.21 L Hgb 10.8 L Hct 33.0 L MCV 103 H MCH 34 H MCHC RDW 16.4 H Lymph % (Auto) [place] % (Auto) Lymph # [place] # Seg Neutrophils % Seg Neuts % (Manual) Lymphocytes % (Manual) 11.0 L Monocytes % (Manual) Nucleated RBC % Seg Neutrophils # Seg Neutrophils # Man Lymphocytes # (Manual) 1.0 L Monocytes # (Manual) PT INR APTT D-Dimer Heparin Anti-Xa Level 0.21 L POC ABG pH POC ABG pCO2 POC ABG pO2 Sodium Potassium Chloride Carbon Dioxide BUN 48 H Creatinine 1.6 H Glucose 166 H POC Glucose Lactic Acid Calcium Phosphorus Total Bilirubin C-Reactive Protein NT-Pro-B Natriuret Pep Total Protein Albumin Urine WBC (Auto) Urine Creatinine 07/29/18 07/29/18 07/29/18 05:19 08:16 09:24 WBC RBC Hgb Hct MCV MCH MCHC RDW Lymph % (Auto) [place] % (Auto) Lymph # [place] # Seg Neutrophils % Seg Neuts % (Manual) Lymphocytes % (Manual) Monocytes % (Manual) Nucleated RBC % Seg Neutrophils # Seg Neutrophils # Man Lymphocytes # (Manual) Monocytes # (Manual) PT INR APTT D-Dimer Heparin Anti-Xa Level 0.25 L POC ABG pH POC ABG pCO2 POC ABG pO2 Sodium Potassium Chloride Carbon Dioxide BUN Creatinine Glucose POC Glucose 181 H Lactic Acid Calcium Phosphorus Total Bilirubin C-Reactive Protein NT-Pro-B Natriuret Pep Total Protein Albumin Urine WBC (Auto) 29.0 H Urine Creatinine 07/29/18 07/29/18 07/29/18 09:24 10:00 15:03 WBC RBC Hgb Hct MCV MCH MCHC RDW Lymph % (Auto) [place] % (Auto) Lymph # [place] # Seg Neutrophils % Seg Neuts % (Manual) Lymphocytes % (Manual) Monocytes % (Manual) Nucleated RBC % Seg Neutrophils # Seg Neutrophils # Man Lymphocytes # (Manual) Monocytes # (Manual) PT INR APTT D-Dimer Heparin Anti-Xa Level POC ABG pH POC ABG pCO2 POC ABG pO2 Sodium Potassium Chloride Carbon Dioxide BUN Creatinine Glucose POC Glucose 195 H 167 H Lactic Acid Calcium Phosphorus Total Bilirubin C-Reactive Protein NT-Pro-B Natriuret Pep Total Protein Albumin Urine WBC (Auto) Urine Creatinine 72.3 H 07/29/18 07/29/18 07/30/18 17:51 21:32 01:38 WBC RBC Hgb Hct MCV MCH MCHC RDW Lymph % (Auto) [place] % (Auto) Lymph # [place] # Seg Neutrophils % Seg Neuts % (Manual) Lymphocytes % (Manual) Monocytes % (Manual) Nucleated RBC % Seg Neutrophils # Seg Neutrophils # Man Lymphocytes # (Manual) Monocytes # (Manual) PT INR APTT D-Dimer Heparin Anti-Xa Level POC ABG pH POC ABG pCO2 POC ABG pO2 Sodium Potassium Chloride Carbon Dioxide BUN Creatinine Glucose POC Glucose 167 H 217 H 194 H Lactic Acid Calcium Phosphorus Total Bilirubin C-Reactive Protein NT-Pro-B Natriuret Pep Total Protein Albumin Urine WBC (Auto) Urine Creatinine 07/30/18 07/30/18 07/30/18 03:21 05:13 10:18 WBC RBC Hgb Hct MCV MCH MCHC RDW Lymph % (Auto) [place] % (Auto) Lymph # [place] # Seg Neutrophils % Seg Neuts % (Manual) Lymphocytes % (Manual) Monocytes % (Manual) Nucleated RBC % Seg Neutrophils # Seg Neutrophils # Man Lymphocytes # (Manual) Monocytes # (Manual) PT INR APTT D-Dimer Heparin Anti-Xa Level POC ABG pH POC ABG pCO2 50.3 H POC ABG pO2 78 L Sodium Potassium Chloride Carbon Dioxide BUN 41 H Creatinine Glucose 202 H POC Glucose 151 H Lactic Acid Calcium Phosphorus Total Bilirubin C-Reactive Protein NT-Pro-B Natriuret Pep Total Protein Albumin Urine WBC (Auto) Urine Creatinine 07/30/18 07/30/18 07/30/18 11:29 16:28 18:12 WBC RBC Hgb Hct MCV MCH MCHC RDW Lymph % (Auto) [place] % (Auto) Lymph # [place] # Seg Neutrophils % Seg Neuts % (Manual) Lymphocytes % (Manual) Monocytes % (Manual) Nucleated RBC % Seg Neutrophils # Seg Neutrophils # Man Lymphocytes # (Manual) Monocytes # (Manual) PT INR APTT D-Dimer Heparin Anti-Xa Level POC ABG pH 7.326 L POC ABG pCO2 53.2 H POC ABG pO2 70 L Sodium Potassium Chloride Carbon Dioxide BUN Creatinine Glucose POC Glucose 247 H 212 H Lactic Acid Calcium Phosphorus Total Bilirubin C-Reactive Protein NT-Pro-B Natriuret Pep Total Protein Albumin Urine WBC (Auto) Urine Creatinine 07/30/18 07/30/18 07/31/18 20:08 21:52 01:59 WBC RBC Hgb Hct MCV MCH MCHC RDW Lymph % (Auto) [place] % (Auto) Lymph # [place] # Seg Neutrophils % Seg Neuts % (Manual) Lymphocytes % (Manual) Monocytes % (Manual) Nucleated RBC % Seg Neutrophils # Seg Neutrophils # Man Lymphocytes # (Manual) Monocytes # (Manual) PT INR APTT D-Dimer Heparin Anti-Xa Level POC ABG pH POC ABG pCO2 POC ABG pO2 Sodium Potassium Chloride Carbon Dioxide BUN Creatinine Glucose POC Glucose 205 H 215 H 242 H Lactic Acid Calcium Phosphorus Total Bilirubin C-Reactive Protein NT-Pro-B Natriuret Pep Total Protein Albumin Urine WBC (Auto) Urine Creatinine 07/31/18 07/31/18 07/31/18 03:14 03:14 04:55 WBC RBC Hgb 10.6 L Hct 33.2 L MCV MCH MCHC RDW Lymph % (Auto) [place] % (Auto) Lymph # [place] # Seg Neutrophils % Seg Neuts % (Manual) Lymphocytes % (Manual) Monocytes % (Manual) Nucleated RBC % Seg Neutrophils # Seg Neutrophils # Man Lymphocytes # (Manual) Monocytes # (Manual) PT INR APTT D-Dimer Heparin Anti-Xa Level POC ABG pH 7.331 L POC ABG pCO2 67.1 H POC ABG pO2 Sodium Potassium Chloride Carbon Dioxide BUN 36 H Creatinine 0.7 L Glucose 242 H POC Glucose Lactic Acid Calcium 10.3 H Phosphorus 2.30 L Total Bilirubin C-Reactive Protein NT-Pro-B Natriuret Pep Total Protein Albumin Urine WBC (Auto) Urine Creatinine 07/31/18 07/31/18 07/31/18 05:37 10:08 14:07 WBC RBC Hgb Hct MCV MCH MCHC RDW Lymph % (Auto) [place] % (Auto) Lymph # [place] # Seg Neutrophils % Seg Neuts % (Manual) Lymphocytes % (Manual) Monocytes % (Manual) Nucleated RBC % Seg Neutrophils # Seg Neutrophils # Man Lymphocytes # (Manual) Monocytes # (Manual) PT INR APTT D-Dimer Heparin Anti-Xa Level POC ABG pH POC ABG pCO2 POC ABG pO2 Sodium Potassium Chloride Carbon Dioxide BUN Creatinine Glucose POC Glucose 193 H 247 H 225 H Lactic Acid Calcium Phosphorus Total Bilirubin C-Reactive Protein NT-Pro-B Natriuret Pep Total Protein Albumin Urine WBC (Auto) Urine Creatinine 07/31/18 07/31/18 08/01/18 18:12 21:34 02:00 WBC RBC Hgb Hct MCV MCH MCHC RDW Lymph % (Auto) [place] % (Auto) Lymph # [place] # Seg Neutrophils % Seg Neuts % (Manual) Lymphocytes % (Manual) Monocytes % (Manual) Nucleated RBC % Seg Neutrophils # Seg Neutrophils # Man Lymphocytes # (Manual) Monocytes # (Manual) PT INR APTT D-Dimer Heparin Anti-Xa Level POC ABG pH POC ABG pCO2 POC ABG pO2 Sodium Potassium Chloride Carbon Dioxide BUN Creatinine Glucose POC Glucose 197 H 204 H 239 H Lactic Acid Calcium Phosphorus Total Bilirubin C-Reactive Protein NT-Pro-B Natriuret Pep Total Protein Albumin Urine WBC (Auto) Urine Creatinine 08/01/18 08/01/18 08/01/18 04:13 04:37 05:29 WBC RBC Hgb Hct MCV MCH MCHC RDW Lymph % (Auto) [place] % (Auto) Lymph # [place] # Seg Neutrophils % Seg Neuts % (Manual) Lymphocytes % (Manual) Monocytes % (Manual) Nucleated RBC % Seg Neutrophils # Seg Neutrophils # Man Lymphocytes # (Manual) Monocytes # (Manual) PT INR APTT D-Dimer Heparin Anti-Xa Level POC ABG pH 7.296 L POC ABG pCO2 81.9 H POC ABG pO2 190 H Sodium 150 H D Potassium Chloride Carbon Dioxide 37 H D BUN 37 H Creatinine 0.6 L Glucose 223 H POC Glucose 219 H Lactic Acid Calcium Phosphorus Total Bilirubin C-Reactive Protein NT-Pro-B Natriuret Pep Total Protein Albumin Urine WBC (Auto) Urine Creatinine 08/01/18 08/01/18 08/01/18 09:28 11:00 17:36 WBC RBC Hgb Hct MCV MCH MCHC RDW Lymph % (Auto) [place] % (Auto) Lymph # [place] # Seg Neutrophils % Seg Neuts % (Manual) Lymphocytes % (Manual) Monocytes % (Manual) Nucleated RBC % Seg Neutrophils # Seg Neutrophils # Man Lymphocytes # (Manual) Monocytes # (Manual) PT INR APTT D-Dimer Heparin Anti-Xa Level POC ABG pH POC ABG pCO2 61.2 H POC ABG pO2 69 L Sodium Potassium Chloride Carbon Dioxide BUN Creatinine Glucose POC Glucose 185 H 234 H Lactic Acid Calcium Phosphorus Total Bilirubin C-Reactive Protein NT-Pro-B Natriuret Pep Total Protein Albumin Urine WBC (Auto) Urine Creatinine 08/01/18 08/02/18 08/02/18 21:54 00:08 00:44 WBC RBC Hgb Hct MCV MCH MCHC RDW Lymph % (Auto) [place] % (Auto) Lymph # [place] # Seg Neutrophils % Seg Neuts % (Manual) Lymphocytes % (Manual) Monocytes % (Manual) Nucleated RBC % Seg Neutrophils # Seg Neutrophils # Man Lymphocytes # (Manual) Monocytes # (Manual) PT INR APTT D-Dimer Heparin Anti-Xa Level 0.77 H POC ABG pH POC ABG pCO2 66.4 H POC ABG pO2 64 L Sodium Potassium Chloride Carbon Dioxide BUN Creatinine Glucose POC Glucose 242 H Lactic Acid Calcium Phosphorus Total Bilirubin C-Reactive Protein NT-Pro-B Natriuret Pep Total Protein Albumin Urine WBC (Auto) Urine Creatinine 08/02/18 08/02/18 08/02/18 02:46 04:45 04:45 WBC RBC Hgb 10.7 L Hct 33.7 L MCV MCH MCHC RDW Lymph % (Auto) [place] % (Auto) Lymph # [place] # Seg Neutrophils % Seg Neuts % (Manual) Lymphocytes % (Manual) Monocytes % (Manual) Nucleated RBC % Seg Neutrophils # Seg Neutrophils # Man Lymphocytes # (Manual) Monocytes # (Manual) PT INR APTT D-Dimer Heparin Anti-Xa Level POC ABG pH POC ABG pCO2 POC ABG pO2 Sodium 152 H Potassium Chloride 108.1 H Carbon Dioxide 39 H BUN 38 H Creatinine 0.6 L Glucose 226 H POC Glucose 206 H Lactic Acid Calcium Phosphorus Total Bilirubin C-Reactive Protein NT-Pro-B Natriuret Pep Total Protein Albumin Urine WBC (Auto) Urine Creatinine 08/02/18 08/02/18 08/02/18 05:31 09:46 14:23 WBC RBC Hgb Hct MCV MCH MCHC RDW Lymph % (Auto) [place] % (Auto) Lymph # [place] # Seg Neutrophils % Seg Neuts % (Manual) Lymphocytes % (Manual) Monocytes % (Manual) Nucleated RBC % Seg Neutrophils # Seg Neutrophils # Man Lymphocytes # (Manual) Monocytes # (Manual) PT INR APTT D-Dimer Heparin Anti-Xa Level 0.91 H POC ABG pH POC ABG pCO2 POC ABG pO2 Sodium Potassium Chloride Carbon Dioxide BUN Creatinine Glucose POC Glucose 214 H 210 H Lactic Acid Calcium Phosphorus Total Bilirubin C-Reactive Protein NT-Pro-B Natriuret Pep Total Protein Albumin Urine WBC (Auto) Urine Creatinine 08/02/18 08/02/18 08/02/18 15:46 17:56 21:50 WBC RBC Hgb Hct MCV MCH MCHC RDW Lymph % (Auto) [place] % (Auto) Lymph # [place] # Seg Neutrophils % Seg Neuts % (Manual) Lymphocytes % (Manual) Monocytes % (Manual) Nucleated RBC % Seg Neutrophils # Seg Neutrophils # Man Lymphocytes # (Manual) Monocytes # (Manual) PT INR APTT D-Dimer Heparin Anti-Xa Level 0.99 H POC ABG pH POC ABG pCO2 POC ABG pO2 Sodium Potassium Chloride Carbon Dioxide BUN Creatinine Glucose POC Glucose 252 H 222 H Lactic Acid Calcium Phosphorus Total Bilirubin C-Reactive Protein NT-Pro-B Natriuret Pep Total Protein Albumin Urine WBC (Auto) Urine Creatinine 08/03/18 08/03/18 08/03/18 02:18 05:21 05:25 WBC RBC Hgb Hct MCV MCH MCHC RDW Lymph % (Auto) [place] % (Auto) Lymph # [place] # Seg Neutrophils % Seg Neuts % (Manual) Lymphocytes % (Manual) Monocytes % (Manual) Nucleated RBC % Seg Neutrophils # Seg Neutrophils # Man Lymphocytes # (Manual) Monocytes # (Manual) PT INR APTT D-Dimer Heparin Anti-Xa Level POC ABG pH POC ABG pCO2 POC ABG pO2 Sodium 151 H Potassium Chloride 107.3 H Carbon Dioxide 37 H BUN 42 H Creatinine 0.6 L Glucose 263 H POC Glucose 241 H 241 H Lactic Acid Calcium Phosphorus Total Bilirubin C-Reactive Protein NT-Pro-B Natriuret Pep Total Protein Albumin Urine WBC (Auto) Urine Creatinine 08/03/18 08/03/18 08/03/18 09:11 12:20 14:33 WBC RBC Hgb Hct MCV MCH MCHC RDW Lymph % (Auto) [place] % (Auto) Lymph # [place] # Seg Neutrophils % Seg Neuts % (Manual) Lymphocytes % (Manual) Monocytes % (Manual) Nucleated RBC % Seg Neutrophils # Seg Neutrophils # Man Lymphocytes # (Manual) Monocytes # (Manual) PT INR APTT D-Dimer Heparin Anti-Xa Level POC ABG pH POC ABG pCO2 POC ABG pO2 Sodium Potassium Chloride Carbon Dioxide BUN Creatinine Glucose POC Glucose 272 H 234 H 247 H Lactic Acid Calcium Phosphorus Total Bilirubin C-Reactive Protein NT-Pro-B Natriuret Pep Total Protein Albumin Urine WBC (Auto) Urine Creatinine 08/03/18 08/03/18 08/04/18 16:48 21:21 01:56 WBC RBC Hgb Hct MCV MCH MCHC RDW Lymph % (Auto) [place] % (Auto) Lymph # [place] # Seg Neutrophils % Seg Neuts % (Manual) Lymphocytes % (Manual) Monocytes % (Manual) Nucleated RBC % Seg Neutrophils # Seg Neutrophils # Man Lymphocytes # (Manual) Monocytes # (Manual) PT INR APTT D-Dimer Heparin Anti-Xa Level POC ABG pH POC ABG pCO2 POC ABG pO2 Sodium Potassium Chloride Carbon Dioxide BUN Creatinine Glucose POC Glucose 180 H 189 H Lactic Acid Calcium Phosphorus Total Bilirubin C-Reactive Protein 2.30 H NT-Pro-B Natriuret Pep Total Protein Albumin Urine WBC (Auto) Urine Creatinine 08/04/18 08/04/18 08/04/18 01:58 05:05 05:05 WBC 25.5 H RBC 3.31 L Hgb 10.8 L Hct 34.1 L MCV 103 H MCH 33 H MCHC RDW 16.0 H Lymph % (Auto) [place] % (Auto) Lymph # [place] # Seg Neutrophils % Seg Neuts % (Manual) Lymphocytes % (Manual) 8.0 L Monocytes % (Manual) Nucleated RBC % 2.0 H Seg Neutrophils # Seg Neutrophils # Man 16.3 H Lymphocytes # (Manual) Monocytes # (Manual) 1.0 H PT INR APTT D-Dimer Heparin Anti-Xa Level 0.79 H POC ABG pH POC ABG pCO2 POC ABG pO2 Sodium 148 H Potassium Chloride Carbon Dioxide 36 H BUN 35 H Creatinine 0.6 L Glucose 160 H POC Glucose Lactic Acid Calcium Phosphorus Total Bilirubin C-Reactive Protein NT-Pro-B Natriuret Pep Total Protein Albumin Urine WBC (Auto) Urine Creatinine 08/04/18 08/04/18 08/04/18 05:24 05:33 08:46 WBC RBC Hgb Hct MCV MCH MCHC RDW Lymph % (Auto) [place] % (Auto) Lymph # [place] # Seg Neutrophils % Seg Neuts % (Manual) Lymphocytes % (Manual) Monocytes % (Manual) Nucleated RBC % Seg Neutrophils # Seg Neutrophils # Man Lymphocytes # (Manual) Monocytes # (Manual) PT INR APTT D-Dimer Heparin Anti-Xa Level 0.76 H POC ABG pH POC ABG pCO2 65.7 H POC ABG pO2 63 L Sodium Potassium Chloride Carbon Dioxide BUN Creatinine Glucose POC Glucose 159 H Lactic Acid Calcium Phosphorus Total Bilirubin C-Reactive Protein NT-Pro-B Natriuret Pep Total Protein Albumin Urine WBC (Auto) Urine Creatinine 08/04/18 08/04/18 08/04/18 09:12 15:38 18:20 WBC RBC Hgb Hct MCV MCH MCHC RDW Lymph % (Auto) [place] % (Auto) Lymph # [place] # Seg Neutrophils % Seg Neuts % (Manual) Lymphocytes % (Manual) Monocytes % (Manual) Nucleated RBC % Seg Neutrophils # Seg Neutrophils # Man Lymphocytes # (Manual) Monocytes # (Manual) PT INR APTT D-Dimer Heparin Anti-Xa Level POC ABG pH POC ABG pCO2 POC ABG pO2 Sodium Potassium Chloride Carbon Dioxide BUN Creatinine Glucose POC Glucose 140 H 267 H 252 H Lactic Acid Calcium Phosphorus Total Bilirubin C-Reactive Protein NT-Pro-B Natriuret Pep Total Protein Albumin Urine WBC (Auto) Urine Creatinine 08/04/18 08/05/18 08/05/18 21:17 02:51 04:36 WBC RBC Hgb Hct MCV MCH MCHC RDW Lymph % (Auto) [place] % (Auto) Lymph # [place] # Seg Neutrophils % Seg Neuts % (Manual) Lymphocytes % (Manual) Monocytes % (Manual) Nucleated RBC % Seg Neutrophils # Seg Neutrophils # Man Lymphocytes # (Manual) Monocytes # (Manual) PT INR APTT D-Dimer Heparin Anti-Xa Level POC ABG pH POC ABG pCO2 POC ABG pO2 Sodium Potassium Chloride Carbon Dioxide BUN Creatinine Glucose POC Glucose 181 H 240 H 255 H Lactic Acid Calcium Phosphorus Total Bilirubin C-Reactive Protein NT-Pro-B Natriuret Pep Total Protein Albumin Urine WBC (Auto) Urine Creatinine 08/05/18 08/05/18 08/05/18 04:55 10:21 12:39 WBC 21.8 H RBC 3.18 L Hgb 10.3 L Hct 32.6 L MCV 103 H MCH 33 H MCHC RDW 16.3 H Lymph % (Auto) [place] % (Auto) Lymph # [place] # Seg Neutrophils % Seg Neuts % (Manual) 88.0 H Lymphocytes % (Manual) 4.0 L Monocytes % (Manual) Nucleated RBC % Seg Neutrophils # Seg Neutrophils # Man 19.2 H Lymphocytes # (Manual) 0.9 L Monocytes # (Manual) PT INR APTT D-Dimer Heparin Anti-Xa Level POC ABG pH 7.506 H POC ABG pCO2 56.0 H POC ABG pO2 63 L Sodium Potassium Chloride Carbon Dioxide BUN Creatinine Glucose POC Glucose 227 H Lactic Acid Calcium Phosphorus Total Bilirubin C-Reactive Protein NT-Pro-B Natriuret Pep Total Protein Albumin Urine WBC (Auto) Urine Creatinine 08/05/18 08/05/18 08/05/18 12:39 14:10 17:30 WBC RBC Hgb Hct MCV MCH MCHC RDW Lymph % (Auto) [place] % (Auto) Lymph # [place] # Seg Neutrophils % Seg Neuts % (Manual) Lymphocytes % (Manual) Monocytes % (Manual) Nucleated RBC % Seg Neutrophils # Seg Neutrophils # Man Lymphocytes # (Manual) Monocytes # (Manual) PT INR APTT D-Dimer Heparin Anti-Xa Level < 0.10 L POC ABG pH POC ABG pCO2 POC ABG pO2 Sodium Potassium Chloride 96.8 L Carbon Dioxide 38 H BUN 36 H Creatinine 0.6 L Glucose 218 H POC Glucose 221 H Lactic Acid Calcium Phosphorus Total Bilirubin C-Reactive Protein NT-Pro-B Natriuret Pep Total Protein Albumin Urine WBC (Auto) Urine Creatinine 08/05/18 08/05/18 08/06/18 18:32 23:32 02:26 WBC RBC Hgb Hct MCV MCH MCHC RDW Lymph % (Auto) [place] % (Auto) Lymph # [place] # Seg Neutrophils % Seg Neuts % (Manual) Lymphocytes % (Manual) Monocytes % (Manual) Nucleated RBC % Seg Neutrophils # Seg Neutrophils # Man Lymphocytes # (Manual) Monocytes # (Manual) PT INR APTT D-Dimer Heparin Anti-Xa Level POC ABG pH POC ABG pCO2 POC ABG pO2 Sodium Potassium Chloride Carbon Dioxide BUN Creatinine Glucose POC Glucose 253 H 215 H 227 H Lactic Acid Calcium Phosphorus Total Bilirubin C-Reactive Protein NT-Pro-B Natriuret Pep Total Protein Albumin Urine WBC (Auto) Urine Creatinine 08/06/18 08/06/18 08/06/18 05:17 05:17 05:32 WBC 18.9 H RBC 3.06 L Hgb 10.2 L Hct 31.3 L MCV 102 H MCH 33 H MCHC RDW 16.1 H Lymph % (Auto) [place] % (Auto) Lymph # [place] # Seg Neutrophils % Seg Neuts % (Manual) Lymphocytes % (Manual) Monocytes % (Manual) Nucleated RBC % Seg Neutrophils # Seg Neutrophils # Man Lymphocytes # (Manual) Monocytes # (Manual) PT INR APTT D-Dimer Heparin Anti-Xa Level POC ABG pH 7.468 H POC ABG pCO2 59.5 H POC ABG pO2 64 L Sodium Potassium Chloride Carbon Dioxide 37 H BUN 37 H Creatinine 0.5 L Glucose 226 H POC Glucose Lactic Acid Calcium Phosphorus Total Bilirubin C-Reactive Protein NT-Pro-B Natriuret Pep Total Protein Albumin Urine WBC (Auto) Urine Creatinine 08/06/18 08/06/18 08/06/18 10:11 15:03 17:48 WBC RBC Hgb Hct MCV MCH MCHC RDW Lymph % (Auto) [place] % (Auto) Lymph # [place] # Seg Neutrophils % Seg Neuts % (Manual) Lymphocytes % (Manual) Monocytes % (Manual) Nucleated RBC % Seg Neutrophils # Seg Neutrophils # Man Lymphocytes # (Manual) Monocytes # (Manual) PT INR APTT D-Dimer Heparin Anti-Xa Level POC ABG pH POC ABG pCO2 POC ABG pO2 Sodium Potassium Chloride Carbon Dioxide BUN Creatinine Glucose POC Glucose 207 H 229 H 188 H Lactic Acid Calcium Phosphorus Total Bilirubin C-Reactive Protein NT-Pro-B Natriuret Pep Total Protein Albumin Urine WBC (Auto) Urine Creatinine 08/06/18 08/07/18 08/07/18 22:53 01:55 05:30 WBC RBC Hgb Hct MCV MCH MCHC RDW Lymph % (Auto) [place] % (Auto) Lymph # [place] # Seg Neutrophils % Seg Neuts % (Manual) Lymphocytes % (Manual) Monocytes % (Manual) Nucleated RBC % Seg Neutrophils # Seg Neutrophils # Man Lymphocytes # (Manual) Monocytes # (Manual) PT INR APTT D-Dimer Heparin Anti-Xa Level POC ABG pH POC ABG pCO2 69.6 H POC ABG pO2 64 L Sodium Potassium Chloride Carbon Dioxide BUN Creatinine Glucose POC Glucose 146 H 143 H Lactic Acid Calcium Phosphorus Total Bilirubin C-Reactive Protein NT-Pro-B Natriuret Pep Total Protein Albumin Urine WBC (Auto) Urine Creatinine 08/07/18 08/07/18 08/07/18 09:59 14:16 15:08 WBC RBC Hgb 10.3 L Hct 32.2 L MCV MCH MCHC RDW Lymph % (Auto) [place] % (Auto) Lymph # [place] # Seg Neutrophils % Seg Neuts % (Manual) Lymphocytes % (Manual) Monocytes % (Manual) Nucleated RBC % Seg Neutrophils # Seg Neutrophils # Man Lymphocytes # (Manual) Monocytes # (Manual) PT INR APTT D-Dimer Heparin Anti-Xa Level POC ABG pH POC ABG pCO2 POC ABG pO2 Sodium Potassium Chloride Carbon Dioxide BUN Creatinine Glucose POC Glucose 188 H 223 H Lactic Acid Calcium Phosphorus Total Bilirubin C-Reactive Protein NT-Pro-B Natriuret Pep Total Protein Albumin Urine WBC (Auto) Urine Creatinine 08/07/18 08/07/18 08/07/18 15:08 17:39 22:04 WBC RBC Hgb Hct MCV MCH MCHC RDW Lymph % (Auto) [place] % (Auto) Lymph # [place] # Seg Neutrophils % Seg Neuts % (Manual) Lymphocytes % (Manual) Monocytes % (Manual) Nucleated RBC % Seg Neutrophils # Seg Neutrophils # Man Lymphocytes # (Manual) Monocytes # (Manual) PT INR APTT 23.2 L D-Dimer Heparin Anti-Xa Level POC ABG pH POC ABG pCO2 POC ABG pO2 Sodium Potassium Chloride Carbon Dioxide BUN Creatinine Glucose POC Glucose 208 H 163 H Lactic Acid Calcium Phosphorus Total Bilirubin C-Reactive Protein NT-Pro-B Natriuret Pep Total Protein Albumin Urine WBC (Auto) Urine Creatinine 08/07/18 08/08/18 08/08/18 22:30 01:57 02:09 WBC 14.6 H RBC 2.88 L Hgb 9.5 L Hct 29.9 L MCV 104 H MCH 33 H MCHC RDW 16.8 H Lymph % (Auto) [place] % (Auto) Lymph # [place] # Seg Neutrophils % Seg Neuts % (Manual) 73.0 H Lymphocytes % (Manual) 9.0 L Monocytes % (Manual) 10.0 H Nucleated RBC % Seg Neutrophils # Seg Neutrophils # Man 10.7 H Lymphocytes # (Manual) Monocytes # (Manual) 1.5 H PT INR APTT D-Dimer Heparin Anti-Xa Level 0.25 L POC ABG pH POC ABG pCO2 POC ABG pO2 Sodium Potassium Chloride Carbon Dioxide BUN Creatinine Glucose POC Glucose 120 H Lactic Acid Calcium Phosphorus Total Bilirubin C-Reactive Protein NT-Pro-B Natriuret Pep Total Protein Albumin Urine WBC (Auto) Urine Creatinine 08/08/18 08/08/18 08/08/18 02:09 04:58 05:19 WBC RBC Hgb Hct MCV MCH MCHC RDW Lymph % (Auto) [place] % (Auto) Lymph # [place] # Seg Neutrophils % Seg Neuts % (Manual) Lymphocytes % (Manual) Monocytes % (Manual) Nucleated RBC % Seg Neutrophils # Seg Neutrophils # Man Lymphocytes # (Manual) Monocytes # (Manual) PT INR APTT D-Dimer Heparin Anti-Xa Level POC ABG pH 7.461 H POC ABG pCO2 57.3 H POC ABG pO2 62 L Sodium Potassium Chloride Carbon Dioxide 39 H BUN 29 H Creatinine 0.5 L Glucose 124 H POC Glucose 139 H Lactic Acid Calcium Phosphorus Total Bilirubin C-Reactive Protein NT-Pro-B Natriuret Pep Total Protein Albumin Urine WBC (Auto) Urine Creatinine 08/08/18 08/08/18 08/08/18 10:22 14:52 16:12 WBC RBC Hgb Hct MCV MCH MCHC RDW Lymph % (Auto) [place] % (Auto) Lymph # [place] # Seg Neutrophils % Seg Neuts % (Manual) Lymphocytes % (Manual) Monocytes % (Manual) Nucleated RBC % Seg Neutrophils # Seg Neutrophils # Man Lymphocytes # (Manual) Monocytes # (Manual) PT INR APTT D-Dimer Heparin Anti-Xa Level POC ABG pH POC ABG pCO2 POC ABG pO2 Sodium Potassium Chloride Carbon Dioxide BUN Creatinine Glucose POC Glucose 169 H 149 H 136 H Lactic Acid Calcium Phosphorus Total Bilirubin C-Reactive Protein NT-Pro-B Natriuret Pep Total Protein Albumin Urine WBC (Auto) Urine Creatinine 08/09/18 08/09/18 08/09/18 02:26 03:52 03:52 WBC 15.9 H RBC 2.87 L Hgb 9.6 L Hct 30.7 L MCV 107 H MCH 34 H MCHC 31 L RDW 17.8 H Lymph % (Auto) 3.9 L [place] % (Auto) 8.1 H Lymph # 0.6 L [place] # 1.3 H Seg Neutrophils % 87.1 H Seg Neuts % (Manual) Lymphocytes % (Manual) Monocytes % (Manual) Nucleated RBC % Seg Neutrophils # 13.9 H Seg Neutrophils # Man Lymphocytes # (Manual) Monocytes # (Manual) PT INR APTT D-Dimer Heparin Anti-Xa Level 0.25 L POC ABG pH POC ABG pCO2 POC ABG pO2 Sodium Potassium Chloride Carbon Dioxide BUN Creatinine Glucose POC Glucose 126 H Lactic Acid Calcium Phosphorus Total Bilirubin C-Reactive Protein NT-Pro-B Natriuret Pep Total Protein Albumin Urine WBC (Auto) Urine Creatinine 08/09/18 08/09/18 08/09/18 03:52 05:34 06:48 WBC RBC Hgb Hct MCV MCH MCHC RDW Lymph % (Auto) [place] % (Auto) Lymph # [place] # Seg Neutrophils % Seg Neuts % (Manual) Lymphocytes % (Manual) Monocytes % (Manual) Nucleated RBC % Seg Neutrophils # Seg Neutrophils # Man Lymphocytes # (Manual) Monocytes # (Manual) PT INR APTT D-Dimer Heparin Anti-Xa Level POC ABG pH POC ABG pCO2 57.5 H POC ABG pO2 58 L Sodium Potassium Chloride Carbon Dioxide 39 H BUN 26 H Creatinine 0.5 L Glucose 128 H POC Glucose 171 H Lactic Acid Calcium Phosphorus Total Bilirubin C-Reactive Protein NT-Pro-B Natriuret Pep Total Protein Albumin Urine WBC (Auto) Urine Creatinine 08/09/18 08/09/18 08/09/18 09:28 09:36 13:44 WBC RBC Hgb Hct MCV MCH MCHC RDW Lymph % (Auto) [place] % (Auto) Lymph # [place] # Seg Neutrophils % Seg Neuts % (Manual) Lymphocytes % (Manual) Monocytes % (Manual) Nucleated RBC % Seg Neutrophils # Seg Neutrophils # Man Lymphocytes # (Manual) Monocytes # (Manual) PT INR APTT D-Dimer Heparin Anti-Xa Level 0.26 L POC ABG pH POC ABG pCO2 POC ABG pO2 Sodium Potassium Chloride Carbon Dioxide BUN Creatinine Glucose POC Glucose 183 H 184 H Lactic Acid Calcium Phosphorus Total Bilirubin C-Reactive Protein NT-Pro-B Natriuret Pep Total Protein Albumin Urine WBC (Auto) Urine Creatinine 08/09/18 08/10/18 08/10/18 17:55 04:49 05:20 WBC RBC Hgb Hct MCV MCH MCHC RDW Lymph % (Auto) [place] % (Auto) Lymph # [place] # Seg Neutrophils % Seg Neuts % (Manual) Lymphocytes % (Manual) Monocytes % (Manual) Nucleated RBC % Seg Neutrophils # Seg Neutrophils # Man Lymphocytes # (Manual) Monocytes # (Manual) PT INR APTT D-Dimer Heparin Anti-Xa Level POC ABG pH POC ABG pCO2 59.9 H POC ABG pO2 59 L Sodium Potassium Chloride Carbon Dioxide BUN Creatinine Glucose POC Glucose 148 H 59 L Lactic Acid Calcium Phosphorus Total Bilirubin C-Reactive Protein NT-Pro-B Natriuret Pep Total Protein Albumin Urine WBC (Auto) Urine Creatinine 08/10/18 08/10/18 08/10/18 05:53 17:12 21:17 WBC RBC Hgb Hct MCV MCH MCHC RDW Lymph % (Auto) [place] % (Auto) Lymph # [place] # Seg Neutrophils % Seg Neuts % (Manual) Lymphocytes % (Manual) Monocytes % (Manual) Nucleated RBC % Seg Neutrophils # Seg Neutrophils # Man Lymphocytes # (Manual) Monocytes # (Manual) PT INR APTT D-Dimer Heparin Anti-Xa Level POC ABG pH POC ABG pCO2 POC ABG pO2 Sodium Potassium Chloride Carbon Dioxide BUN Creatinine Glucose POC Glucose 128 H 110 H 109 H Lactic Acid Calcium Phosphorus Total Bilirubin C-Reactive Protein NT-Pro-B Natriuret Pep Total Protein Albumin Urine WBC (Auto) Urine Creatinine 08/11/18 08/11/18 08/11/18 00:54 02:28 04:17 WBC RBC Hgb 7.8 L Hct 24.1 L D MCV MCH MCHC RDW Lymph % (Auto) [place] % (Auto) Lymph # [place] # Seg Neutrophils % Seg Neuts % (Manual) Lymphocytes % (Manual) Monocytes % (Manual) Nucleated RBC % Seg Neutrophils # Seg Neutrophils # Man Lymphocytes # (Manual) Monocytes # (Manual) PT INR APTT D-Dimer Heparin Anti-Xa Level 0.19 L POC ABG pH POC ABG pCO2 POC ABG pO2 Sodium Potassium Chloride Carbon Dioxide BUN Creatinine Glucose POC Glucose 124 H Lactic Acid Calcium Phosphorus Total Bilirubin C-Reactive Protein NT-Pro-B Natriuret Pep Total Protein Albumin Urine WBC (Auto) Urine Creatinine 08/11/18 08/11/18 08/11/18 05:10 07:42 10:27 WBC RBC Hgb Hct MCV MCH MCHC RDW Lymph % (Auto) [place] % (Auto) Lymph # [place] # Seg Neutrophils % Seg Neuts % (Manual) Lymphocytes % (Manual) Monocytes % (Manual) Nucleated RBC % Seg Neutrophils # Seg Neutrophils # Man Lymphocytes # (Manual) Monocytes # (Manual) PT INR APTT D-Dimer Heparin Anti-Xa Level 0.20 L POC ABG pH POC ABG pCO2 POC ABG pO2 Sodium Potassium Chloride Carbon Dioxide BUN Creatinine Glucose POC Glucose 150 H 156 H Lactic Acid Calcium Phosphorus Total Bilirubin C-Reactive Protein NT-Pro-B Natriuret Pep Total Protein Albumin Urine WBC (Auto) Urine Creatinine 08/11/18 08/11/18 08/11/18 13:54 15:06 18:13 WBC RBC Hgb Hct MCV MCH MCHC RDW Lymph % (Auto) [place] % (Auto) Lymph # [place] # Seg Neutrophils % Seg Neuts % (Manual) Lymphocytes % (Manual) Monocytes % (Manual) Nucleated RBC % Seg Neutrophils # Seg Neutrophils # Man Lymphocytes # (Manual) Monocytes # (Manual) PT INR APTT D-Dimer Heparin Anti-Xa Level POC ABG pH 7.471 H POC ABG pCO2 45.5 H POC ABG pO2 79 L Sodium Potassium Chloride Carbon Dioxide BUN Creatinine Glucose POC Glucose 177 H 143 H Lactic Acid Calcium Phosphorus Total Bilirubin C-Reactive Protein NT-Pro-B Natriuret Pep Total Protein Albumin Urine WBC (Auto) Urine Creatinine 08/11/18 08/11/18 08/11/18 18:33 21:22 Unknown WBC RBC Hgb Hct MCV MCH MCHC RDW Lymph % (Auto) [place] % (Auto) Lymph # [place] # Seg Neutrophils % Seg Neuts % (Manual) Lymphocytes % (Manual) Monocytes % (Manual) Nucleated RBC % Seg Neutrophils # Seg Neutrophils # Man Lymphocytes # (Manual) Monocytes # (Manual) PT INR APTT D-Dimer Heparin Anti-Xa Level 0.29 L POC ABG pH POC ABG pCO2 POC ABG pO2 Sodium 136 L Potassium Chloride 96.5 L Carbon Dioxide 32 H D BUN Creatinine 0.5 L Glucose 186 H POC Glucose 151 H Lactic Acid Calcium Phosphorus Total Bilirubin C-Reactive Protein NT-Pro-B Natriuret Pep Total Protein Albumin Urine WBC (Auto) Urine Creatinine 08/11/18 08/12/18 08/12/18 Unknown 02:09 05:29 WBC 12.1 H RBC 2.50 L Hgb 8.2 L Hct 25.7 L MCV 103 H MCH 33 H MCHC RDW 17.0 H Lymph % (Auto) 5.1 L [place] % (Auto) 9.5 H Lymph # 0.6 L [place] # 1.2 H Seg Neutrophils % 84.8 H Seg Neuts % (Manual) Lymphocytes % (Manual) Monocytes % (Manual) Nucleated RBC % Seg Neutrophils # 10.3 H Seg Neutrophils # Man Lymphocytes # (Manual) Monocytes # (Manual) PT INR APTT D-Dimer Heparin Anti-Xa Level POC ABG pH POC ABG pCO2 POC ABG pO2 Sodium Potassium Chloride Carbon Dioxide BUN Creatinine Glucose POC Glucose 159 H 136 H Lactic Acid Calcium Phosphorus Total Bilirubin C-Reactive Protein NT-Pro-B Natriuret Pep Total Protein Albumin Urine WBC (Auto) Urine Creatinine 08/12/18 08/12/18 08/12/18 07:33 09:59 13:59 WBC RBC Hgb Hct MCV MCH MCHC RDW Lymph % (Auto) [place] % (Auto) Lymph # [place] # Seg Neutrophils % Seg Neuts % (Manual) Lymphocytes % (Manual) Monocytes % (Manual) Nucleated RBC % Seg Neutrophils # Seg Neutrophils # Man Lymphocytes # (Manual) Monocytes # (Manual) PT INR APTT D-Dimer Heparin Anti-Xa Level POC ABG pH POC ABG pCO2 POC ABG pO2 Sodium Potassium Chloride Carbon Dioxide BUN Creatinine Glucose POC Glucose 138 H 157 H 167 H Lactic Acid Calcium Phosphorus Total Bilirubin C-Reactive Protein NT-Pro-B Natriuret Pep Total Protein Albumin Urine WBC (Auto) Urine Creatinine 08/12/18 08/12/18 08/12/18 14:31 14:56 17:39 WBC RBC Hgb Hct MCV MCH MCHC RDW Lymph % (Auto) [place] % (Auto) Lymph # [place] # Seg Neutrophils % Seg Neuts % (Manual) Lymphocytes % (Manual) Monocytes % (Manual) Nucleated RBC % Seg Neutrophils # Seg Neutrophils # Man Lymphocytes # (Manual) Monocytes # (Manual) PT INR APTT D-Dimer Heparin Anti-Xa Level 1.18 H POC ABG pH 7.466 H POC ABG pCO2 POC ABG pO2 58 L Sodium Potassium Chloride Carbon Dioxide BUN Creatinine Glucose POC Glucose 168 H Lactic Acid Calcium Phosphorus Total Bilirubin C-Reactive Protein NT-Pro-B Natriuret Pep Total Protein Albumin Urine WBC (Auto) Urine Creatinine 08/12/18 08/13/18 08/13/18 21:38 02:17 05:20 WBC RBC Hgb 8.0 L Hct 24.5 L MCV MCH MCHC RDW Lymph % (Auto) [place] % (Auto) Lymph # [place] # Seg Neutrophils % Seg Neuts % (Manual) Lymphocytes % (Manual) Monocytes % (Manual) Nucleated RBC % Seg Neutrophils # Seg Neutrophils # Man Lymphocytes # (Manual) Monocytes # (Manual) PT INR APTT D-Dimer Heparin Anti-Xa Level POC ABG pH POC ABG pCO2 POC ABG pO2 Sodium Potassium Chloride Carbon Dioxide BUN Creatinine Glucose POC Glucose 168 H 157 H Lactic Acid Calcium Phosphorus Total Bilirubin C-Reactive Protein NT-Pro-B Natriuret Pep Total Protein Albumin Urine WBC (Auto) Urine Creatinine 08/13/18 08/13/18 08/13/18 09:28 10:07 14:09 WBC RBC Hgb Hct MCV MCH MCHC RDW Lymph % (Auto) [place] % (Auto) Lymph # [place] # Seg Neutrophils % Seg Neuts % (Manual) Lymphocytes % (Manual) Monocytes % (Manual) Nucleated RBC % Seg Neutrophils # Seg Neutrophils # Man Lymphocytes # (Manual) Monocytes # (Manual) PT INR APTT D-Dimer Heparin Anti-Xa Level POC ABG pH 7.453 H POC ABG pCO2 47.5 H POC ABG pO2 Sodium Potassium Chloride Carbon Dioxide BUN Creatinine Glucose POC Glucose 177 H 178 H Lactic Acid Calcium Phosphorus Total Bilirubin C-Reactive Protein NT-Pro-B Natriuret Pep Total Protein Albumin Urine WBC (Auto) Urine Creatinine 08/13/18 08/13/18 08/14/18 17:33 21:28 01:58 WBC RBC Hgb Hct MCV MCH MCHC RDW Lymph % (Auto) [place] % (Auto) Lymph # [place] # Seg Neutrophils % Seg Neuts % (Manual) Lymphocytes % (Manual) Monocytes % (Manual) Nucleated RBC % Seg Neutrophils # Seg Neutrophils # Man Lymphocytes # (Manual) Monocytes # (Manual) PT INR APTT D-Dimer Heparin Anti-Xa Level POC ABG pH POC ABG pCO2 POC ABG pO2 Sodium Potassium Chloride Carbon Dioxide BUN Creatinine Glucose POC Glucose 130 H 145 H 161 H Lactic Acid Calcium Phosphorus Total Bilirubin C-Reactive Protein NT-Pro-B Natriuret Pep Total Protein Albumin Urine WBC (Auto) Urine Creatinine 08/14/18 08/14/18 08/14/18 05:22 06:10 09:59 WBC RBC Hgb Hct MCV MCH MCHC RDW Lymph % (Auto) [place] % (Auto) Lymph # [place] # Seg Neutrophils % Seg Neuts % (Manual) Lymphocytes % (Manual) Monocytes % (Manual) Nucleated RBC % Seg Neutrophils # Seg Neutrophils # Man Lymphocytes # (Manual) Monocytes # (Manual) PT INR APTT D-Dimer Heparin Anti-Xa Level POC ABG pH POC ABG pCO2 POC ABG pO2 Sodium Potassium Chloride Carbon Dioxide BUN Creatinine 0.5 L Glucose 125 H POC Glucose 117 H 107 H Lactic Acid Calcium Phosphorus Total Bilirubin C-Reactive Protein NT-Pro-B Natriuret Pep Total Protein Albumin Urine WBC (Auto) Urine Creatinine 08/14/18 08/14/18 08/14/18 14:04 17:49 21:27 WBC RBC Hgb Hct MCV MCH MCHC RDW Lymph % (Auto) [place] % (Auto) Lymph # [place] # Seg Neutrophils % Seg Neuts % (Manual) Lymphocytes % (Manual) Monocytes % (Manual) Nucleated RBC % Seg Neutrophils # Seg Neutrophils # Man Lymphocytes # (Manual) Monocytes # (Manual) PT INR APTT D-Dimer Heparin Anti-Xa Level POC ABG pH POC ABG pCO2 POC ABG pO2 Sodium Potassium Chloride Carbon Dioxide BUN Creatinine Glucose POC Glucose 137 H 150 H 149 H Lactic Acid Calcium Phosphorus Total Bilirubin C-Reactive Protein NT-Pro-B Natriuret Pep Total Protein Albumin Urine WBC (Auto) Urine Creatinine 08/14/18 08/15/18 08/15/18 21:55 01:50 03:12 WBC 13.3 H RBC 2.79 L Hgb 9.3 L 8.4 L Hct 28.6 L 25.7 L MCV 102 H MCH 33 H MCHC RDW 16.6 H Lymph % (Auto) [place] % (Auto) Lymph # [place] # Seg Neutrophils % Seg Neuts % (Manual) Lymphocytes % (Manual) Monocytes % (Manual) Nucleated RBC % Seg Neutrophils # Seg Neutrophils # Man Lymphocytes # (Manual) Monocytes # (Manual) PT INR APTT D-Dimer Heparin Anti-Xa Level POC ABG pH POC ABG pCO2 POC ABG pO2 Sodium Potassium Chloride Carbon Dioxide BUN Creatinine Glucose POC Glucose 186 H Lactic Acid Calcium Phosphorus Total Bilirubin C-Reactive Protein NT-Pro-B Natriuret Pep Total Protein Albumin Urine WBC (Auto) Urine Creatinine 08/15/18 08/15/18 08/15/18 09:55 11:45 13:47 WBC RBC 2.38 L Hgb 8.0 L Hct 24.5 L MCV 103 H MCH 34 H MCHC RDW 16.8 H Lymph % (Auto) 4.9 L [place] % (Auto) Lymph # 0.5 L [place] # Seg Neutrophils % 88.1 H Seg Neuts % (Manual) Lymphocytes % (Manual) Monocytes % (Manual) Nucleated RBC % Seg Neutrophils # 9.6 H Seg Neutrophils # Man Lymphocytes # (Manual) Monocytes # (Manual) PT INR APTT D-Dimer Heparin Anti-Xa Level POC ABG pH POC ABG pCO2 POC ABG pO2 Sodium Potassium Chloride Carbon Dioxide BUN Creatinine Glucose POC Glucose 133 H 142 H Lactic Acid Calcium Phosphorus Total Bilirubin C-Reactive Protein NT-Pro-B Natriuret Pep Total Protein Albumin Urine WBC (Auto) Urine Creatinine 08/15/18 08/15/18 08/16/18 17:54 21:58 02:20 WBC RBC Hgb Hct MCV MCH MCHC RDW Lymph % (Auto) [place] % (Auto) Lymph # [place] # Seg Neutrophils % Seg Neuts % (Manual) Lymphocytes % (Manual) Monocytes % (Manual) Nucleated RBC % Seg Neutrophils # Seg Neutrophils # Man Lymphocytes # (Manual) Monocytes # (Manual) PT INR APTT D-Dimer Heparin Anti-Xa Level POC ABG pH POC ABG pCO2 POC ABG pO2 Sodium Potassium Chloride Carbon Dioxide BUN Creatinine Glucose POC Glucose 131 H 157 H 108 H Lactic Acid Calcium Phosphorus Total Bilirubin C-Reactive Protein NT-Pro-B Natriuret Pep Total Protein Albumin Urine WBC (Auto) Urine Creatinine 08/16/18 08/16/18 08/16/18 05:16 10:20 10:23 WBC RBC Hgb Hct MCV MCH MCHC RDW Lymph % (Auto) [place] % (Auto) Lymph # [place] # Seg Neutrophils % Seg Neuts % (Manual) Lymphocytes % (Manual) Monocytes % (Manual) Nucleated RBC % Seg Neutrophils # Seg Neutrophils # Man Lymphocytes # (Manual) Monocytes # (Manual) PT INR APTT D-Dimer Heparin Anti-Xa Level POC ABG pH POC ABG pCO2 POC ABG pO2 63 L Sodium Potassium Chloride Carbon Dioxide BUN Creatinine Glucose POC Glucose 115 H 146 H Lactic Acid Calcium Phosphorus Total Bilirubin C-Reactive Protein NT-Pro-B Natriuret Pep Total Protein Albumin Urine WBC (Auto) Urine Creatinine 08/16/18 08/16/18 08/16/18 11:06 14:05 18:04 WBC RBC 2.82 L Hgb 9.2 L Hct 28.8 L MCV 102 H MCH 33 H MCHC RDW 16.4 H Lymph % (Auto) 3.8 L [place] % (Auto) Lymph # 0.4 L [place] # Seg Neutrophils % 89.5 H Seg Neuts % (Manual) Lymphocytes % (Manual) Monocytes % (Manual) Nucleated RBC % Seg Neutrophils # 9.1 H Seg Neutrophils # Man Lymphocytes # (Manual) Monocytes # (Manual) PT INR APTT D-Dimer Heparin Anti-Xa Level POC ABG pH POC ABG pCO2 POC ABG pO2 Sodium Potassium Chloride Carbon Dioxide BUN Creatinine Glucose POC Glucose 139 H 144 H Lactic Acid Calcium Phosphorus Total Bilirubin C-Reactive Protein NT-Pro-B Natriuret Pep Total Protein Albumin Urine WBC (Auto) Urine Creatinine 08/16/18 08/17/18 08/17/18 21:50 03:51 04:59 WBC RBC Hgb Hct MCV MCH MCHC RDW Lymph % (Auto) [place] % (Auto) Lymph # [place] # Seg Neutrophils % Seg Neuts % (Manual) Lymphocytes % (Manual) Monocytes % (Manual) Nucleated RBC % Seg Neutrophils # Seg Neutrophils # Man Lymphocytes # (Manual) Monocytes # (Manual) PT INR APTT D-Dimer Heparin Anti-Xa Level POC ABG pH POC ABG pCO2 POC ABG pO2 Sodium Potassium Chloride Carbon Dioxide BUN Creatinine 0.5 L Glucose 134 H POC Glucose 147 H 135 H Lactic Acid Calcium Phosphorus Total Bilirubin C-Reactive Protein NT-Pro-B Natriuret Pep Total Protein Albumin Urine WBC (Auto) Urine Creatinine Allied health notes reviewed: RT
[2018-08-17] MEDS: SODIUM CHLORIDE FLUSH SYRINGE 10 ML IV SCH (12:58)
[2018-08-17] MEDS: ELIQUIS PO SCH ×2 (12:59→21:58)
[2018-08-17] MEDS: CORDARONE PO SCH ×2 (13:00→21:59)
[2018-08-17] MEDS: PRAVACHOL PO SCH (13:00)
[2018-08-17] MEDS: VITAMIN B-12 PO SCH (13:05)
[2018-08-17] MEDS: PEPCID PO SCH ×2 (13:12→21:59)
--- NOTE | 2018-08-17 16:58 | Progress Note ---
Assessment and Plan Assessment and plan: Sepsis. Previous Blood cultures reveal Streptococcus anginosus. New sepsis, fever with leucocytosis. ID started empiric IV Cefepime and will assess response Acute kidney injury. Etiology secondary to above. Continue to monitor creatinine. Left lower lobe pneumonia. Continue antibiotics and follow repeat chest x-ray. Sputum culture revealed Pseudomonas and MSSA Acute hypoxemic respiratory failure. Etiology secondary to above. Continue on mechanical ventilation and weaning per pulmonary. Patient is status post trach and PEG on 08/11/18. Patient tolerating CPAP this morning. Atrial fibrillation. Continue amiodarone and diltiazem. Cardiology following. REGAN negative. Cont. Eliquis Acute renal failure due to vasomotor nephropathy, Resolved. COPD exacerbation. Continue bronchodilators/nebulizers. IV steroids. Hypertension. Resume antihypertensive medications as needed. Hyperlipidemia. Peripheral vascular disease. The high probability of a clinically significant, sudden or life threatening deterioration of the [respiratory] system(s) required my full and direct attent ion, intervention and personal management. The aggregate critical care time was [31] minutes. This time is in addition to time spent performing reported procedures but includes the following: [x] Data Review and interpretation [x] Patient assessment and monitoring of vital signs [x] Documentation [x] Medication orders and management History Interval history: No fever for 2 days Hospitalist Physical - Physical exam Narrative exam: GEN: Not in acute distress, HEENT: Normocephalic, atraumatic, Neck: supple, No JVD. Tracheostomy Lungs: Clear to auscultation, no wheeze Heart:S1 and S2 regular, no murmurs, rubs or gallop, Abd:soft, non tender, non distended, normal bowel sounds Ext: No edema, no clubbing or cyanosis Neuro: Opens eyes, - Constitutional Vitals: Temp Pulse Resp BP Pulse Ox 98.3 F 95 H 42 H 139/66 97 08/17/18 12:00 08/17/18 14:00 08/17/18 14:00 08/17/18 14:00 08/17/18 16:44 General appearance: Present: other (intubated on mechanical ventilation) Results - Labs CBC & Chem 7: 08/16/18 11:06 08/17/18 03:51 Labs: Laboratory Last Values WBC 10.1 K/mm3 (4.5-11.0) 08/16/18 11:06 RBC 2.82 M/mm3 (3.65-5.03) L 08/16/18 11:06 Hgb 9.2 gm/dl (11.8-15.2) L 08/16/18 11:06 Hct 28.8 % (35.5-45.6) L 08/16/18 11:06 MCV 102 fl (84-94) H 08/16/18 11:06 MCH 33 pg (28-32) H 08/16/18 11:06 MCHC 32 % (32-34) 08/16/18 11:06 RDW 16.4 % (13.2-15.2) H 08/16/18 11:06 Plt Count 292 K/mm3 (140-440) 08/16/18 11:06 Lymph % (Auto) 3.8 % (13.4-35.0) L 08/16/18 11:06 [place] % (Auto) 5.7 % (0.0-7.3) 08/16/18 11:06 Eos % (Auto) 0.6 % (0.0-4.3) 08/16/18 11:06 Baso % (Auto) 0.4 % (0.0-1.8) 08/16/18 11:06 Lymph # 0.4 K/mm3 (1.2-5.4) L 08/16/18 11:06 [place] # 0.6 K/mm3 (0.0-0.8) 08/16/18 11:06 Eos # 0.1 K/mm3 (0.0-0.4) 08/16/18 11:06 Baso # 0.0 K/mm3 (0.0-0.1) 08/16/18 11:06 Add Manual Diff Complete 08/08/18 02:09 Total Counted 100 08/08/18 02:09 Seg Neutrophils % 89.5 % (40.0-70.0) H 08/16/18 11:06 Seg Neuts % (Manual) 73.0 % (40.0-70.0) H 08/08/18 02:09 Band Neutrophils % 5.0 % 08/08/18 02:09 Lymphocytes % (Manual) 9.0 % (13.4-35.0) L 08/08/18 02:09 Reactive Lymphs % (Man) 0 % 08/08/18 02:09 Monocytes % (Manual) 10.0 % (0.0-7.3) H 08/08/18 02:09 Eosinophils % (Manual) 0 % (0.0-4.3) 08/08/18 02:09 Basophils % (Manual) 0 % (0.0-1.8) 08/08/18 02:09 Metamyelocytes % 3.0 % 08/08/18 02:09 Myelocytes % 0 % 08/08/18 02:09 Promyelocytes % 0 % 08/08/18 02:09 Blast Cells % 0 % 08/08/18 02:09 Nucleated RBC % Not Reportable 08/08/18 02:09 Seg Neutrophils # 9.1 K/mm3 (1.8-7.7) H 08/16/18 11:06 Seg Neutrophils # Man 10.7 K/mm3 (1.8-7.7) H 08/08/18 02:09 Band Neutrophils # 0.7 K/mm3 08/08/18 02:09 Lymphocytes # (Manual) 1.3 K/mm3 (1.2-5.4) 08/08/18 02:09 Abs React Lymphs (Man) 0.0 K/mm3 08/08/18 02:09 Monocytes # (Manual) 1.5 K/mm3 (0.0-0.8) H 08/08/18 02:09 Eosinophils # (Manual) 0.0 K/mm3 (0.0-0.4) 08/08/18 02:09 Basophils # (Manual) 0.0 K/mm3 (0.0-0.1) 08/08/18 02:09 Metamyelocytes # 0.4 K/mm3 08/08/18 02:09 Myelocytes # 0.0 K/mm3 08/08/18 02:09 Promyelocytes # 0.0 K/mm3 08/08/18 02:09 Blast Cells # 0.0 K/mm3 08/08/18 02:09 Pathologist Review 07/28/18 06:01 WBC Morphology Not Reportable 08/08/18 02:09 Hypersegmented Neuts Not Reportable 08/08/18 02:09 Hyposegmented Neuts Not Reportable 08/08/18 02:09 Hypogranular Neuts Not Reportable 08/08/18 02:09 Smudge Cells Not Reportable 08/08/18 02:09 Toxic Granulation Not Reportable 08/08/18 02:09 Toxic Vacuolation Not Reportable 08/08/18 02:09 Dohle Bodies Not Reportable 08/08/18 02:09 Pelger-Huet Anomaly Not Reportable 08/08/18 02:09 Janiya Rods Not Reportable 08/08/18 02:09 Platelet Estimate Appears normal 08/08/18 02:09 Clumped Platelets Not Reportable 08/08/18 02:09 Plt Clumps, EDTA Not Reportable 08/08/18 02:09 Large Platelets Not Reportable 08/08/18 02:09 Giant Platelets Not Reportable 08/08/18 02:09 Platelet Satelliting Not Reportable 08/08/18 02:09 Plt Morphology Comment Not Reportable 08/08/18 02:09 RBC Morphology Not Reportable 08/08/18 02:09 Dimorphic RBCs Not Reportable 08/08/18 02:09 Polychromasia Not Reportable 08/08/18 02:09 Hypochromasia Few 08/08/18 02:09 Poikilocytosis Not Reportable 08/08/18 02:09 Anisocytosis 1+ 08/08/18 02:09 Microcytosis Not Reportable 08/08/18 02:09 Macrocytosis Not Reportable 08/08/18 02:09 Spherocytes Not Reportable 08/08/18 02:09 Pappenheimer Bodies Not Reportable 08/08/18 02:09 Sickle Cells Not Reportable 08/08/18 02:09 Target Cells Not Reportable 08/08/18 02:09 Tear Drop Cells Not Reportable 08/08/18 02:09 Ovalocytes Not Reportable 08/08/18 02:09 Stomatocytes Few 08/08/18 02:09 Helmet Cells Not Reportable 08/08/18 02:09 Lr-[place] Bodies Not Reportable 08/08/18 02:09 [place] Rings Not Reportable 08/08/18 02:09 [place] Cells Not Reportable 08/08/18 02:09 Bite Cells Not Reportable 08/08/18 02:09 Crenated Cell Not Reportable 08/08/18 02:09 Elliptocytes Not Reportable 08/08/18 02:09 Acanthocytes (Spur) Not Reportable 08/08/18 02:09 Rouleaux Not Reportable 08/08/18 02:09 Hemoglobin C Crystals Not Reportable 08/08/18 02:09 Schistocytes Not Reportable 08/08/18 02:09 Malaria parasites Not Reportable 08/08/18 02:09 Jigar Bodies Not Reportable 08/08/18 02:09 Hem Pathologist Commnt No 08/08/18 02:09 PT 13.4 Sec. (12.2-14.9) 08/07/18 15:08 INR 0.98 (0.87-1.13) 08/07/18 15:08 APTT 23.2 Sec. (24.2-36.6) L 08/07/18 15:08 D-Dimer 798.17 ng/mlDDU (0-234) H 07/27/18 15:52 Heparin Anti-Xa Level 1.18 U.I./ml (0.3-0.7) H 08/12/18 14:56 POC ABG pH 7.432 (7.35-7.45) 08/16/18 10:23 POC ABG pCO2 44.9 (35-45) 08/16/18 10:23 POC ABG pO2 63 (80-105) L 08/16/18 10:23 POC ABG HCO3 29.9 08/16/18 10:23 POC ABG Total CO2 31 08/16/18 10:23 POC ABG O2 Sat 92 08/16/18 10:23 POC ABG Base Excess 6 08/16/18 10:23 FiO2 45 % 08/13/18 09:28 Sodium 140 mmol/L (137-145) 08/17/18 03:51 Potassium 4.4 mmol/L (3.6-5.0) 08/17/18 03:51 Chloride 100.9 mmol/L (98-107) 08/17/18 03:51 Carbon Dioxide 30 mmol/L (22-30) 08/17/18 03:51 Anion Gap 14 mmol/L 08/17/18 03:51 BUN 14 mg/dL (9-20) 08/17/18 03:51 Creatinine 0.5 mg/dL (0.8-1.5) L 08/17/18 03:51 Estimated GFR > 60 ml/min 08/17/18 03:51 BUN/Creatinine Ratio 28 % 08/17/18 03:51 Glucose 134 mg/dL (75-100) H 08/17/18 03:51 POC Glucose 160 (70-105) H 08/17/18 12:07 Lactic Acid 1.30 mmol/L (0.7-2.0) 08/03/18 16:48 Calcium 8.9 mg/dL (8.4-10.2) 08/17/18 03:51 Phosphorus 2.80 mg/dL (2.5-4.5) 08/06/18 05:17 Magnesium 2.30 mg/dL (1.7-2.3) 08/06/18 05:17 Total Bilirubin 1.30 mg/dL (0.1-1.2) H 07/27/18 12:59 AST 15 units/L (5-40) 07/27/18 12:59 ALT 16 units/L (7-56) 07/27/18 12:59 Alkaline Phosphatase 62 units/L (35-129) 07/27/18 12:59 Troponin T < 0.010 ng/mL (0.00-0.029) 07/27/18 12:59 C-Reactive Protein 2.30 mg/dL (0.00-1.30) H 08/03/18 16:48 NT-Pro-B Natriuret Pep 3913 pg/mL (0-900) H 07/27/18 12:59 Total Protein 6.2 g/dL (6.3-8.2) L 07/27/18 12:59 Albumin 3.6 g/dL (3.9-5) L 07/27/18 12:59 Albumin/Globulin Ratio 1.4 % 07/27/18 12:59 Triglycerides 64 mg/dL (2-149) 08/08/18 14:02 TSH 1.180 mlU/mL (0.270-4.200) 07/27/18 15:52 Free T4 1.28 ng/dL (0.76-1.46) 07/27/18 15:52 Urine Color Yellow (Yellow) 08/11/18 12:50 Urine Turbidity Clear (Clear) 08/11/18 12:50 Urine pH 6.0 (5.0-7.0) 08/11/18 12:50 Ur Specific [place] 1.015 (1.003-1.030) 08/11/18 12:50 Urine Protein <15 mg/dl mg/dL (Negative) 08/11/18 12:50 Urine Glucose (UA) 50 mg/dL (Negative) 08/11/18 12:50 Urine Ketones Neg mg/dL (Negative) 08/11/18 12:50 Urine Blood Neg (Negative) 08/11/18 12:50 Urine Nitrite Neg (Negative) 08/11/18 12:50 Urine Bilirubin Neg (Negative) 08/11/18 12:50 Urine Urobilinogen 4.0 mg/dL (<2.0) 08/11/18 12:50 Ur Leukocyte Esterase Neg (Negative) 08/11/18 12:50 Urine WBC (Auto) 2.0 /HPF (0.0-6.0) 08/11/18 12:50 Urine RBC (Auto) 2.0 /HPF (0.0-6.0) 08/11/18 12:50 U Epithel Cells (Auto) 2.0 /HPF (0-13.0) 07/29/18 09:24 Urine Bacteria (Auto) 1+ /HPF (Negative) 08/11/18 12:50 Urine Mucus Few /HPF 08/11/18 12:50 Urine Yeast ([place]) 1+ /HPF 07/29/18 09:24 Urine Creatinine 72.3 mg/dL (0.1-20.0) H 07/29/18 09:24 Urine Sodium 12 mmol/L 07/29/18 09:24 Random Vancomycin 9.2 ug/mL (0-40.0) 07/29/18 04:21 Nutrition/Malnutrition Assess - Dietary Evaluation Nutrition/Malnutrition Findings: Nutrition Notes Start: 07/28/18 10:54 Freq: Status: Active Protocol: Document 08/16/18 10:40 OL (Rec: 08/16/18 10:42 OL [facility]-[id number]) Nutrition Notes Initial or Follow up Reassessment Current Diagnoses Acute Kidney Injury COPD Sepsis Hypertension Heart Failure Respiratory Failure Other Pertinent Diagnosis Hx of Skin Cancer Current Diet Nepro at 50ml/hr Labs/Tests Reviewed Medications Reviewed Height 5 ft 8 in Weight 85.1 kg [place] Body Weight (lbs) 154.0 BMI 28.5 Subjective/Other Information Nepro infusing at goal rate of 50mL/hr, well tolerated Burn Absent Trauma Absent #1 Nutrition Diagnoses Inadequate oral intake Diagnosis Progress(for reassessment Continues documentation) Is patient on ventilator? Yes Is Patient Ambulatory and/or Out of Bed No REE-([facility]-confined to bed) [phone] Calculation Used for Recommendations [facility] Additional Notes protein (1.2-2g/kg): 102-170g fluid: 1mL/kcal Nutrition Intervention Change Diet Order: Continue TF Nutrition Support: Nepro at 50mL/hr 250 mL free water flush q4h or per MD. Kcal 2,160 Protein (gm) 97 Fluid (mL) 872 Goal #1 TF tolerance and rate Goal #2 Meet at least 80% of kcal needs and 80-100% of protein needs. Follow-Up By: 08/23/18 Additional Comments f/u: stable TF
--- NOTE | 2018-08-17 18:08 | Progress Note ---
Assessment and Plan Cultures: 07/27/2018 tracheal aspirate culture: Pseudomonas aeruginosa, MSSA 07/28/2018 blood culture: 4 out of 4 bottles positive for Streptococcus anginosus 07/28/2018 fungal blood culture: In progress but no growth thus far 07/29/2018 urine culture: No growth 08/01/2018 blood culture: negative thus far 08/11/2018 blood culture: in process 08/11/2018 urine culture: no growth 08/15/2018 sputum culture: Staph aureus, GNR x 2 A/P: 73-year-old male with COPD, peripheral vascular disease, hypertension, hyperlipidemia, seizure disorder admitted with: 1) New sepsis, fever with leucocytosis secondary to pneumonia: Responding well to IV Cefepime. Follow up final sputum cultures, growing GNRx 2 and Staph. 2) Streptococcus anginosus bacteremia: 4/4 bottles, REGAN was negative. completed treatment. 3) Acute respiratory failure secondary to congestive heart failure and pneumonia: now s/p trach and PEG. 4) CARLEE, present on admission, now resolved. Recs: Continue IV Cefepime WBC and fever improving f/u sputum culture Will follow. Rhea Ro MD [facility] C: [phone] O: [phone] F: [phone] Subjective Date of service: 08/17/18 Principal diagnosis: Acute hypoxemic respiratory failure; A-fib with RVR; Possible CHF; H/O DVT Interval history: No fever. Awake, alert. Trach +. Breathing slowly getting better. No rash. Objective - Exam Narrative Exam: Physical Exam: Constitutional: awake, communicative, lying in bed. Head, Ears, Nose: Normocephalic, atraumatic. External ears, nose normal Eyes: Conjunctivae/corneas clear. No icterus. No ptosis. Neck: trach + Oral:no thrush, no ulcers Cardiovascular: S1, S2 normal Respiratory: b/l scattered rhonchi, no crackles GI: Soft, bowel sounds normal. No peritoneal signs. PEG tube + Musculoskeletal: no pedal edema, no cyanosis. Skin: No rash or abscess Hem/Lymphatic: No palpable cervical or supraclavicular nodes. No lymphangitis Psych: calm Neurological: awake, able to communicate, follow commands - Constitutional Vitals: Vital Signs Temp Pulse Resp BP Pulse Ox 98.3 F 95 H 42 H 139/66 97 08/17/18 12:00 08/17/18 14:00 08/17/18 14:00 08/17/18 14:00 08/17/18 16:44 Temperature -Last 24 Hours Temperature 98.3 F Temperature 99.3 F Temperature 98.7 F Temperature 99 F Temperature 99.6 F - Labs CBC & Chem 7: 08/16/18 11:06 08/17/18 03:51 Labs: Abnormal lab results 08/16/18 08/16/18 08/17/18 Range/Units 18:04 21:50 03:51 Creatinine 0.5 L (0.8-1.5) mg/dL Glucose 134 H (75-100) mg/dL POC Glucose 144 H 147 H (70-105) 08/17/18 08/17/18 Range/Units 04:59 12:07 Creatinine (0.8-1.5) mg/dL Glucose (75-100) mg/dL POC Glucose 135 H 160 H (70-105)
[2018-08-17] MEDS: TYLENOL FEEDTUBE PRN (20:26)
[2018-08-17] MEDS: LANTUS SUB-Q SCH (21:59)
[2018-08-18] MEDS: HumaLOG SUB-Q SCH ×5 (02:21→23:25)
[2018-08-18] MEDS: SODIUM CHLORIDE FLUSH SYRINGE 10 ML IV SCH ×3 (04:52→21:31)
[2018-08-18] MEDS: MAXIPIME/NS 2 GM/100 ML 2 GM/100 ML BAG IV SCH ×3 (05:00→21:08)
--- NOTE | 2018-08-18 08:26 | Progress Note ---
Assessment and Plan Assessment and plan: Sepsis. Previous Blood cultures reveal Streptococcus anginosus. New sepsis, fever with leucocytosis. ID started empiric IV Cefepime and will assess response Acute kidney injury. Etiology secondary to above. Continue to monitor creatinine. Left lower lobe pneumonia. Continue antibiotics and follow repeat chest x-ray. Sputum culture revealed Pseudomonas and MSSA Acute hypoxemic respiratory failure. Etiology secondary to above. Continue on mechanical ventilation and weaning per pulmonary. Patient is status post trach and PEG on 08/11/18. Patient tolerating CPAP this morning. Atrial fibrillation. Continue amiodarone and diltiazem. Cardiology following. REGAN negative. Cont. Eliquis Acute renal failure due to vasomotor nephropathy, Resolved. COPD exacerbation. Continue bronchodilators/nebulizers. IV steroids. Hypertension. Resume antihypertensive medications as needed. Hyperlipidemia. Peripheral vascular disease. Plan is for LTAC placement The high probability of a clinically significant, sudden or life threatening deterioration of the [respiratory] system(s) required my full and direct attention, intervention and personal management. The aggregate critical care t jovan was [32] minutes. This time is in addition to time spent performing reported procedures but includes the following: [x] Data Review and interpretation [x] Patient assessment and monitoring of vital signs [x] Documentation [x] Medication orders and management History Interval history: No fever for 2 days Hospitalist Physical - Physical exam Narrative exam: GEN: Not in acute distress, HEENT: Normocephalic, atraumatic, Neck: supple, No JVD. Tracheostomy Lungs: Clear to auscultation, no wheeze Heart:S1 and S2 regular, no murmurs, rubs or gallop, Abd:soft, non tender, non distended, normal bowel sounds, PEG tube Ext: No edema, no clubbing or cyanosis Neuro: Opens eyes, - Constitutional Vitals: Temp Pulse Resp BP Pulse Ox 98.8 F 80 30 H 118/68 96 08/18/18 04:00 08/18/18 08:00 08/18/18 08:00 08/18/18 08:00 08/18/18 08:00 General appearance: Present: other (intubated on mechanical ventilation) Results - Labs CBC & Chem 7: 08/16/18 11:06 08/17/18 03:51 Labs: Laboratory Last Values WBC 10.1 K/mm3 (4.5-11.0) 08/16/18 11:06 RBC 2.82 M/mm3 (3.65-5.03) L 08/16/18 11:06 Hgb 9.2 gm/dl (11.8-15.2) L 08/16/18 11:06 Hct 28.8 % (35.5-45.6) L 08/16/18 11:06 MCV 102 fl (84-94) H 08/16/18 11:06 MCH 33 pg (28-32) H 08/16/18 11:06 MCHC 32 % (32-34) 08/16/18 11:06 RDW 16.4 % (13.2-15.2) H 08/16/18 11:06 Plt Count 292 K/mm3 (140-440) 08/16/18 11:06 Lymph % (Auto) 3.8 % (13.4-35.0) L 08/16/18 11:06 [place] % (Auto) 5.7 % (0.0-7.3) 08/16/18 11:06 Eos % (Auto) 0.6 % (0.0-4.3) 08/16/18 11:06 Baso % (Auto) 0.4 % (0.0-1.8) 08/16/18 11:06 Lymph # 0.4 K/mm3 (1.2-5.4) L 08/16/18 11:06 [place] # 0.6 K/mm3 (0.0-0.8) 08/16/18 11:06 Eos # 0.1 K/mm3 (0.0-0.4) 08/16/18 11:06 Baso # 0.0 K/mm3 (0.0-0.1) 08/16/18 11:06 Add Manual Diff Complete 08/08/18 02:09 Total Counted 100 08/08/18 02:09 Seg Neutrophils % 89.5 % (40.0-70.0) H 08/16/18 11:06 Seg Neuts % (Manual) 73.0 % (40.0-70.0) H 08/08/18 02:09 Band Neutrophils % 5.0 % 08/08/18 02:09 Lymphocytes % (Manual) 9.0 % (13.4-35.0) L 08/08/18 02:09 Reactive Lymphs % (Man) 0 % 08/08/18 02:09 Monocytes % (Manual) 10.0 % (0.0-7.3) H 08/08/18 02:09 Eosinophils % (Manual) 0 % (0.0-4.3) 08/08/18 02:09 Basophils % (Manual) 0 % (0.0-1.8) 08/08/18 02:09 Metamyelocytes % 3.0 % 08/08/18 02:09 Myelocytes % 0 % 08/08/18 02:09 Promyelocytes % 0 % 08/08/18 02:09 Blast Cells % 0 % 08/08/18 02:09 Nucleated RBC % Not Reportable 08/08/18 02:09 Seg Neutrophils # 9.1 K/mm3 (1.8-7.7) H 08/16/18 11:06 Seg Neutrophils # Man 10.7 K/mm3 (1.8-7.7) H 08/08/18 02:09 Band Neutrophils # 0.7 K/mm3 08/08/18 02:09 Lymphocytes # (Manual) 1.3 K/mm3 (1.2-5.4) 08/08/18 02:09 Abs React Lymphs (Man) 0.0 K/mm3 08/08/18 02:09 Monocytes # (Manual) 1.5 K/mm3 (0.0-0.8) H 08/08/18 02:09 Eosinophils # (Manual) 0.0 K/mm3 (0.0-0.4) 08/08/18 02:09 Basophils # (Manual) 0.0 K/mm3 (0.0-0.1) 08/08/18 02:09 Metamyelocytes # 0.4 K/mm3 08/08/18 02:09 Myelocytes # 0.0 K/mm3 08/08/18 02:09 Promyelocytes # 0.0 K/mm3 08/08/18 02:09 Blast Cells # 0.0 K/mm3 08/08/18 02:09 Pathologist Review 07/28/18 06:01 WBC Morphology Not Reportable 08/08/18 02:09 Hypersegmented Neuts Not Reportable 08/08/18 02:09 Hyposegmented Neuts Not Reportable 08/08/18 02:09 Hypogranular Neuts Not Reportable 08/08/18 02:09 Smudge Cells Not Reportable 08/08/18 02:09 Toxic Granulation Not Reportable 08/08/18 02:09 Toxic Vacuolation Not Reportable 08/08/18 02:09 Dohle Bodies Not Reportable 08/08/18 02:09 Pelger-Huet Anomaly Not Reportable 08/08/18 02:09 Janiya Rods Not Reportable 08/08/18 02:09 Platelet Estimate Appears normal 08/08/18 02:09 Clumped Platelets Not Reportable 08/08/18 02:09 Plt Clumps, EDTA Not Reportable 08/08/18 02:09 Large Platelets Not Reportable 08/08/18 02:09 Giant Platelets Not Reportable 08/08/18 02:09 Platelet Satelliting Not Reportable 08/08/18 02:09 Plt Morphology Comment Not Reportable 08/08/18 02:09 RBC Morphology Not Reportable 08/08/18 02:09 Dimorphic RBCs Not Reportable 08/08/18 02:09 Polychromasia Not Reportable 08/08/18 02:09 Hypochromasia Few 08/08/18 02:09 Poikilocytosis Not Reportable 08/08/18 02:09 Anisocytosis 1+ 08/08/18 02:09 Microcytosis Not Reportable 08/08/18 02:09 Macrocytosis Not Reportable 08/08/18 02:09 Spherocytes Not Reportable 08/08/18 02:09 Pappenheimer Bodies Not Reportable 08/08/18 02:09 Sickle Cells Not Reportable 08/08/18 02:09 Target Cells Not Reportable 08/08/18 02:09 Tear Drop Cells Not Reportable 08/08/18 02:09 Ovalocytes Not Reportable 08/08/18 02:09 Stomatocytes Few 08/08/18 02:09 Helmet Cells Not Reportable 08/08/18 02:09 Lr-[place] Bodies Not Reportable 08/08/18 02:09 [place] Rings Not Reportable 08/08/18 02:09 [place] Cells Not Reportable 08/08/18 02:09 Bite Cells Not Reportable 08/08/18 02:09 Crenated Cell Not Reportable 08/08/18 02:09 Elliptocytes Not Reportable 08/08/18 02:09 Acanthocytes (Spur) Not Reportable 08/08/18 02:09 Rouleaux Not Reportable 08/08/18 02:09 Hemoglobin C Crystals Not Reportable 08/08/18 02:09 Schistocytes Not Reportable 08/08/18 02:09 Malaria parasites Not Reportable 08/08/18 02:09 Jigar Bodies Not Reportable 08/08/18 02:09 Hem Pathologist Commnt No 08/08/18 02:09 PT 13.4 Sec. (12.2-14.9) 08/07/18 15:08 INR 0.98 (0.87-1.13) 08/07/18 15:08 APTT 23.2 Sec. (24.2-36.6) L 08/07/18 15:08 D-Dimer 798.17 ng/mlDDU (0-234) H 07/27/18 15:52 Heparin Anti-Xa Level 1.18 U.I./ml (0.3-0.7) H 08/12/18 14:56 POC ABG pH 7.388 (7.35-7.45) 08/17/18 21:38 POC ABG pCO2 55.6 (35-45) H 08/17/18 21:38 POC ABG pO2 65 (80-105) L 08/17/18 21:38 POC ABG HCO3 33.5 08/17/18 21:38 POC ABG Total CO2 35 08/17/18 21:38 POC ABG O2 Sat 92 08/17/18 21:38 POC ABG Base Excess 9 08/17/18 21:38 FiO2 45 % 08/17/18 21:38 Sodium 140 mmol/L (137-145) 08/17/18 03:51 Potassium 4.4 mmol/L (3.6-5.0) 08/17/18 03:51 Chloride 100.9 mmol/L (98-107) 08/17/18 03:51 Carbon Dioxide 30 mmol/L (22-30) 08/17/18 03:51 Anion Gap 14 mmol/L 08/17/18 03:51 BUN 14 mg/dL (9-20) 08/17/18 03:51 Creatinine 0.5 mg/dL (0.8-1.5) L 08/17/18 03:51 Estimated GFR > 60 ml/min 08/17/18 03:51 BUN/Creatinine Ratio 28 % 08/17/18 03:51 Glucose 134 mg/dL (75-100) H 08/17/18 03:51 POC Glucose 127 (70-105) H 08/18/18 05:42 Lactic Acid 1.30 mmol/L (0.7-2.0) 08/03/18 16:48 Calcium 8.9 mg/dL (8.4-10.2) 08/17/18 03:51 Phosphorus 2.80 mg/dL (2.5-4.5) 08/06/18 05:17 Magnesium 2.30 mg/dL (1.7-2.3) 08/06/18 05:17 Total Bilirubin 1.30 mg/dL (0.1-1.2) H 07/27/18 12:59 AST 15 units/L (5-40) 07/27/18 12:59 ALT 16 units/L (7-56) 07/27/18 12:59 Alkaline Phosphatase 62 units/L (35-129) 07/27/18 12:59 Troponin T < 0.010 ng/mL (0.00-0.029) 07/27/18 12:59 C-Reactive Protein 2.30 mg/dL (0.00-1.30) H 08/03/18 16:48 NT-Pro-B Natriuret Pep 3913 pg/mL (0-900) H 07/27/18 12:59 Total Protein 6.2 g/dL (6.3-8.2) L 07/27/18 12:59 Albumin 3.6 g/dL (3.9-5) L 07/27/18 12:59 Albumin/Globulin Ratio 1.4 % 07/27/18 12:59 Triglycerides 64 mg/dL (2-149) 08/08/18 14:02 TSH 1.180 mlU/mL (0.270-4.200) 07/27/18 15:52 Free T4 1.28 ng/dL (0.76-1.46) 07/27/18 15:52 Urine Color Yellow (Yellow) 08/11/18 12:50 Urine Turbidity Clear (Clear) 08/11/18 12:50 Urine pH 6.0 (5.0-7.0) 08/11/18 12:50 Ur Specific [place] 1.015 (1.003-1.030) 08/11/18 12:50 Urine Protein <15 mg/dl mg/dL (Negative) 08/11/18 12:50 Urine Glucose (UA) 50 mg/dL (Negative) 08/11/18 12:50 Urine Ketones Neg mg/dL (Negative) 08/11/18 12:50 Urine Blood Neg (Negative) 08/11/18 12:50 Urine Nitrite Neg (Negative) 08/11/18 12:50 Urine Bilirubin Neg (Negative) 08/11/18 12:50 Urine Urobilinogen 4.0 mg/dL (<2.0) 08/11/18 12:50 Ur Leukocyte Esterase Neg (Negative) 08/11/18 12:50 Urine WBC (Auto) 2.0 /HPF (0.0-6.0) 08/11/18 12:50 Urine RBC (Auto) 2.0 /HPF (0.0-6.0) 08/11/18 12:50 U Epithel Cells (Auto) 2.0 /HPF (0-13.0) 07/29/18 09:24 Urine Bacteria (Auto) 1+ /HPF (Negative) 08/11/18 12:50 Urine Mucus Few /HPF 08/11/18 12:50 Urine Yeast (Budding) 1+ /HPF 07/29/18 09:24 Urine Creatinine 72.3 mg/dL (0.1-20.0) H 07/29/18 09:24 Urine Sodium 12 mmol/L 07/29/18 09:24 Random Vancomycin 9.2 ug/mL (0-40.0) 07/29/18 04:21 Nutrition/Malnutrition Assess - Dietary Evaluation Nutrition/Malnutrition Findings: Nutrition Notes Start: 07/28/18 10:54 Freq: Status: Active Protocol: Document 08/16/18 10:40 OL (Rec: 08/16/18 10:42 OL [id number]) Nutrition Notes Initial or Follow up Reassessment Current Diagnoses Acute Kidney Injury COPD Sepsis Hypertension Heart Failure Respiratory Failure Other Pertinent Diagnosis Hx of Skin Cancer Current Diet Nepro at 50ml/hr Labs/Tests Reviewed Medications Reviewed Height 5 ft 8 in Weight 85.1 kg [place] Body Weight (lbs) 154.0 BMI 28.5 Subjective/Other Information Nepro infusing at goal rate of 50mL/hr, well tolerated Burn Absent Trauma Absent #1 Nutrition Diagnoses Inadequate oral intake Diagnosis Progress(for reassessment Continues documentation) Is patient on ventilator? Yes Is Patient Ambulatory and/or Out of Bed No REE-([facility]-confined to bed) 4962.070 Calculation Used for Recommendations [facility] Additional Notes protein (1.2-2g/kg): 102-170g fluid: 1mL/kcal Nutrition Intervention Change Diet Order: Continue TF Nutrition Support: Nepro at 50mL/hr 250 mL free water flush q4h or per MD. Kcal 2,160 Protein (gm) 97 Fluid (mL) 872 Goal #1 TF tolerance and rate Goal #2 Meet at least 80% of kcal needs and 80-100% of protein needs. Follow-Up By: 08/23/18 Additional Comments f/u: stable TF - Attestation Statement I have reviewed and agreed w/ Malnutrition eval & tx plan: Yes
[2018-08-18] MEDS: VITAMIN B-12 PO SCH (09:22)
[2018-08-18] MEDS: PRAVACHOL PO SCH (09:23)
[2018-08-18] MEDS: CORDARONE PO SCH ×2 (09:23→21:06)
[2018-08-18] MEDS: ELIQUIS PO SCH ×2 (09:23→21:07)
[2018-08-18] MEDS: PEPCID PO SCH ×2 (09:23→21:07)
[2018-08-18] MEDS: TYLENOL FEEDTUBE PRN (09:28)
--- NOTE | 2018-08-18 09:41 | Progress Note ---
Assessment and Plan Acute hypoxemic respiratory failure, on mechanical ventilatory support. s/p trachesotomy Atrial fibrillation with rapid ventricular response, now sinus. 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 Elevated D-dimer. Leukocytosis Hematuria, resolved. Sepsis Chronic obstructive lung disease-acute exacerbation. Hypertension. Peripheral vascular disease. Mixed acidosis, respiratory and metabolic. Acute kidney injury. Lactic acidosis. Elevated BNP level of 3913. - Conitnue ATP trials, get ABG at the 24 hour surekha to ensure adequate gas exchange -Trach care, airway clearance, secretion management - VAP bundle addressed -Avoid delirium - continue enteric nutrition as tolerated - continue supplemental oxygen to keep sats > 90% - aspiration precautions - continue bronchodilators with pulmonary hygiene per RT -Therapeutic anticoagulation -Stress ulcer prophylaxis -Antibiotics to complete course -Mobility for pressure ulcer prevention Evaluation for LTACH for weaning and low level rehab Updated girlfriend at the bedside FULL CODE CONDITION: CRITICAL PROGNOSIS: GUARDED The high probability of a clinically significant, sudden or life-threatening deterioration of the [respiratory, cardiovascular, renal] system(s) required my full and direct attention, intervention and personal management. The aggregate critical care time was [31] minutes without overlap. Time includes spent on; [x] Data Review and interpretation [x] Patient assessment and monitoring of vital signs [x] Documentation [x] Medication orders and management Subjective Date of service: 08/18/18 Principal diagnosis: Acute hypoxemic respiratory failure; A-fib with RVR; Possible CHF; H/O DVT Interval history: Patient is seen today for: Acute hypoxemic respiratory failure on MVS; Atrial fibrillation with RVR; Possible congestive heart failure with an acute exacerbation; History of deep venous thrombosis; Elevated D-dimer. Seen and examined at bedside; 24hour events reviewed; vitals, labs, medications, chart notes reviewed; nursing and respiratory care staff consulted; no adverse overnight events reported to me; remains on MVS;currently in sinus rhythm; no emesis or overt aspiration and tolerating tube feeds; s/p trachesotomy and PEG placement. Tolerating ATP trials Girlfriend at the bedside Objective Vital Signs - 12hr 08/17/18 08/17/18 08/17/18 22:00 22:17 23:00 Temperature Pulse Rate 83 83 82 Pulse Rate [ From Monitor] Respiratory 28 H 30 H 27 H Rate Blood Pressure 117/58 117/58 120/58 O2 Sat by Pulse 92 91 89 Oximetry O2 Sat by Pulse Oximetry [ Assessment] 08/17/18 08/17/18 08/18/18 23:25 23:39 00:00 Temperature 98.6 F Pulse Rate 87 Pulse Rate [ 97 H From Monitor] Respiratory 33 H Rate Blood Pressure 117/58 O2 Sat by Pulse 94 94 Oximetry O2 Sat by Pulse 92 Oximetry [ Assessment] 08/18/18 08/18/18 08/18/18 00:01 01:01 02:00 Temperature Pulse Rate 100 H 87 86 Pulse Rate [ From Monitor] Respiratory 29 H 30 H 30 H Rate Blood Pressure 114/64 114/64 103/56 O2 Sat by Pulse 90 93 96 Oximetry O2 Sat by Pulse Oximetry [ Assessment] 08/18/18 08/18/18 08/18/18 02:07 03:00 03:26 Temperature Pulse Rate 84 84 81 Pulse Rate [ From Monitor] Respiratory 32 H Rate Blood Pressure 108/56 O2 Sat by Pulse 98 Oximetry O2 Sat by Pulse Oximetry [ Assessment] 08/18/18 08/18/18 08/18/18 04:00 05:00 06:00 Temperature 98.8 F Pulse Rate 88 78 84 Pulse Rate [ 81 From Monitor] Respiratory 30 H 31 H 35 H Rate Blood Pressure 111/66 106/54 107/61 O2 Sat by Pulse 96 89 93 Oximetry O2 Sat by Pulse Oximetry [ Assessment] 08/18/18 08/18/18 08/18/18 07:00 07:50 08:00 Temperature Pulse Rate 85 80 Pulse Rate [ 111 H From Monitor] Respiratory 31 H 30 H 30 H Rate Blood Pressure 128/84 118/68 O2 Sat by Pulse 95 95 96 Oximetry O2 Sat by Pulse Oximetry [ Assessment] Constitutional: appears uncomfortable, other (elderly looking CM, normocephalic and atraumatic with normal respiratory effort) Eyes: non-icteric ENT: oropharynx moist, other (s/p tracheostomy to ATP) Neck: supple, no lymphadenopathy, no JVD, other (No thyromegaly) Effort: mildly labored Ascultation: Bilateral: diminished breath sounds, rhonchi Percussion: Bilateral: not dull Cardiovascular: regular rate and rhythm, other (+ systolic murmur) Gastrointestinal: hypoactive bowel sounds, soft, non-tender, non-distended, other (No palpable HSM, PEG in place) Integumentary: rash, other (upper extremity edema) Extremities: no cyanosis, pink and warm, pulses normal, no ischemia or petechiae Neurologic: normal mental status, non-focal exam (grossly), pupils equal and round, other (moves all extemities, obeys simple commands) Psychiatric: mood appropriate, affect normal CBC and BMP: 08/19/18 04:55 08/19/18 04:55 ABG, PT/INR, D-dimer: ABG POC ABG pH 7.388 (7.35-7.45) 08/17/18 21:38 POC ABG pCO2 55.6 (35-45) H 08/17/18 21:38 POC ABG pO2 65 (80-105) L 08/17/18 21:38 POC ABG HCO3 33.5 08/17/18 21:38 POC ABG Total CO2 35 08/17/18 21:38 POC ABG O2 Sat 92 08/17/18 21:38 PT/INR, D-dimer PT 13.4 Sec. (12.2-14.9) 08/07/18 15:08 INR 0.98 (0.87-1.13) 08/07/18 15:08 D-Dimer 798.17 ng/mlDDU (0-234) H 07/27/18 15:52 Abnormal lab findings: Abnormal Labs 07/27/18 07/27/18 07/27/18 12:59 12:59 12:59 WBC 15.8 H RBC Hgb Hct MCV 104 H MCH 34 H MCHC RDW 16.3 H Lymph % (Auto) [place] % (Auto) Lymph # [place] # Seg Neutrophils % Seg Neuts % (Manual) 88.0 H Lymphocytes % (Manual) 3.0 L Monocytes % (Manual) Nucleated RBC % Seg Neutrophils # Seg Neutrophils # Man 13.9 H Lymphocytes # (Manual) 0.5 L Monocytes # (Manual) PT 17.0 H INR 1.34 H APTT D-Dimer Heparin Anti-Xa Level POC ABG pH POC ABG pCO2 POC ABG pO2 Sodium Potassium Chloride Carbon Dioxide 21 L BUN 38 H Creatinine 1.6 H Glucose POC Glucose Lactic Acid Calcium Phosphorus Total Bilirubin 1.30 H C-Reactive Protein NT-Pro-B Natriuret Pep 3913 H Total Protein 6.2 L Albumin 3.6 L Urine WBC (Auto) Urine Creatinine 07/27/18 07/27/18 07/27/18 15:52 16:12 17:09 WBC RBC Hgb Hct MCV MCH MCHC RDW Lymph % (Auto) [place] % (Auto) Lymph # [place] # Seg Neutrophils % Seg Neuts % (Manual) Lymphocytes % (Manual) Monocytes % (Manual) Nucleated RBC % Seg Neutrophils # Seg Neutrophils # Man Lymphocytes # (Manual) Monocytes # (Manual) PT 16.0 H INR 1.24 H APTT D-Dimer 798.17 H Heparin Anti-Xa Level POC ABG pH POC ABG pCO2 POC ABG pO2 Sodium Potassium Chloride Carbon Dioxide BUN Creatinine Glucose POC Glucose Lactic Acid 5.00 H* Calcium Phosphorus Total Bilirubin C-Reactive Protein NT-Pro-B Natriuret Pep Total Protein Albumin Urine WBC (Auto) Urine Creatinine 07/27/18 07/27/18 07/27/18 17:59 18:07 21:31 WBC RBC Hgb Hct MCV MCH MCHC RDW Lymph % (Auto) [place] % (Auto) Lymph # [place] # Seg Neutrophils % Seg Neuts % (Manual) Lymphocytes % (Manual) Monocytes % (Manual) Nucleated RBC % Seg Neutrophils # Seg Neutrophils # Man Lymphocytes # (Manual) Monocytes # (Manual) PT INR APTT D-Dimer Heparin Anti-Xa Level POC ABG pH 7.344 L POC ABG pCO2 POC ABG pO2 36 L Sodium Potassium Chloride Carbon Dioxide BUN Creatinine Glucose POC Glucose Lactic Acid 5.20 H* 5.00 H* Calcium Phosphorus Total Bilirubin C-Reactive Protein NT-Pro-B Natriuret Pep Total Protein Albumin Urine WBC (Auto) Urine Creatinine 07/27/18 07/27/18 07/27/18 21:57 22:42 23:26 WBC RBC Hgb Hct MCV MCH MCHC RDW Lymph % (Auto) [place] % (Auto) Lymph # [place] # Seg Neutrophils % Seg Neuts % (Manual) Lymphocytes % (Manual) Monocytes % (Manual) Nucleated RBC % Seg Neutrophils # Seg Neutrophils # Man Lymphocytes # (Manual) Monocytes # (Manual) PT INR APTT D-Dimer Heparin Anti-Xa Level POC ABG pH 7.199 L POC ABG pCO2 62.0 H POC ABG pO2 Sodium Potassium Chloride Carbon Dioxide BUN Creatinine Glucose POC Glucose Lactic Acid 4.70 H* 5.00 H* Calcium Phosphorus Total Bilirubin C-Reactive Protein NT-Pro-B Natriuret Pep Total Protein Albumin Urine WBC (Auto) Urine Creatinine 07/28/18 07/28/18 07/28/18 00:45 05:40 05:58 WBC RBC Hgb Hct MCV MCH MCHC RDW Lymph % (Auto) [place] % (Auto) Lymph # [place] # Seg Neutrophils % Seg Neuts % (Manual) Lymphocytes % (Manual) Monocytes % (Manual) Nucleated RBC % Seg Neutrophils # Seg Neutrophils # Man Lymphocytes # (Manual) Monocytes # (Manual) PT INR APTT D-Dimer Heparin Anti-Xa Level 0.11 L POC ABG pH 7.186 L POC ABG pCO2 60.1 H POC ABG pO2 68 L Sodium Potassium Chloride Carbon Dioxide BUN Creatinine Glucose POC Glucose Lactic Acid 4.70 H* Calcium Phosphorus Total Bilirubin C-Reactive Protein NT-Pro-B Natriuret Pep Total Protein Albumin Urine WBC (Auto) Urine Creatinine 07/28/18 07/28/18 07/28/18 06:01 06:01 07:19 WBC 12.5 H RBC 3.51 L Hgb 11.5 L Hct MCV 104 H MCH 33 H MCHC RDW 16.6 H Lymph % (Auto) [place] % (Auto) Lymph # [place] # Seg Neutrophils % Seg Neuts % (Manual) Lymphocytes % (Manual) Monocytes % (Manual) Nucleated RBC % Seg Neutrophils # Seg Neutrophils # Man Lymphocytes # (Manual) Monocytes # (Manual) PT INR APTT D-Dimer Heparin Anti-Xa Level 0.14 L POC ABG pH POC ABG pCO2 POC ABG pO2 Sodium 135 L Potassium 5.1 H Chloride 95.0 L Carbon Dioxide 21 L BUN 54 H Creatinine 2.6 H D Glucose POC Glucose Lactic Acid Calcium Phosphorus Total Bilirubin C-Reactive Protein NT-Pro-B Natriuret Pep Total Protein Albumin Urine WBC (Auto) Urine Creatinine 07/28/18 07/28/18 07/28/18 07:19 09:20 11:06 WBC RBC Hgb Hct MCV MCH MCHC RDW Lymph % (Auto) [place] % (Auto) Lymph # [place] # Seg Neutrophils % Seg Neuts % (Manual) Lymphocytes % (Manual) Monocytes % (Manual) Nucleated RBC % Seg Neutrophils # Seg Neutrophils # Man Lymphocytes # (Manual) Monocytes # (Manual) PT INR APTT D-Dimer Heparin Anti-Xa Level POC ABG pH 7.266 L POC ABG pCO2 49.7 H POC ABG pO2 74 L Sodium Potassium Chloride Carbon Dioxide BUN Creatinine Glucose POC Glucose Lactic Acid 4.00 H* 3.90 H* Calcium Phosphorus Total Bilirubin C-Reactive Protein NT-Pro-B Natriuret Pep Total Protein Albumin Urine WBC (Auto) Urine Creatinine 07/28/18 07/28/18 07/28/18 15:06 20:45 23:36 WBC RBC Hgb Hct MCV MCH MCHC RDW Lymph % (Auto) [place] % (Auto) Lymph # [place] # Seg Neutrophils % Seg Neuts % (Manual) Lymphocytes % (Manual) Monocytes % (Manual) Nucleated RBC % Seg Neutrophils # Seg Neutrophils # Man Lymphocytes # (Manual) Monocytes # (Manual) PT INR APTT D-Dimer Heparin Anti-Xa Level 0.15 L POC ABG pH POC ABG pCO2 POC ABG pO2 Sodium 134 L Potassium 5.2 H Chloride Carbon Dioxide BUN 58 H Creatinine 2.1 H Glucose 110 H POC Glucose 125 H Lactic Acid Calcium Phosphorus Total Bilirubin C-Reactive Protein NT-Pro-B Natriuret Pep Total Protein Albumin Urine WBC (Auto) Urine Creatinine 07/29/18 07/29/18 07/29/18 01:12 04:21 04:21 WBC RBC 3.21 L Hgb 10.8 L Hct 33.0 L MCV 103 H MCH 34 H MCHC RDW 16.4 H Lymph % (Auto) [place] % (Auto) Lymph # [place] # Seg Neutrophils % Seg Neuts % (Manual) Lymphocytes % (Manual) 11.0 L Monocytes % (Manual) Nucleated RBC % Seg Neutrophils # Seg Neutrophils # Man Lymphocytes # (Manual) 1.0 L Monocytes # (Manual) PT INR APTT D-Dimer Heparin Anti-Xa Level 0.21 L POC ABG pH POC ABG pCO2 POC ABG pO2 Sodium Potassium Chloride Carbon Dioxide BUN 48 H Creatinine 1.6 H Glucose 166 H POC Glucose Lactic Acid Calcium Phosphorus Total Bilirubin C-Reactive Protein NT-Pro-B Natriuret Pep Total Protein Albumin Urine WBC (Auto) Urine Creatinine 07/29/18 07/29/18 07/29/18 05:19 08:16 09:24 WBC RBC Hgb Hct MCV MCH MCHC RDW Lymph % (Auto) [place] % (Auto) Lymph # [place] # Seg Neutrophils % Seg Neuts % (Manual) Lymphocytes % (Manual) Monocytes % (Manual) Nucleated RBC % Seg Neutrophils # Seg Neutrophils # Man Lymphocytes # (Manual) Monocytes # (Manual) PT INR APTT D-Dimer Heparin Anti-Xa Level 0.25 L POC ABG pH POC ABG pCO2 POC ABG pO2 Sodium Potassium Chloride Carbon Dioxide BUN Creatinine Glucose POC Glucose 181 H Lactic Acid Calcium Phosphorus Total Bilirubin C-Reactive Protein NT-Pro-B Natriuret Pep Total Protein Albumin Urine WBC (Auto) 29.0 H Urine Creatinine 07/29/18 07/29/18 07/29/18 09:24 10:00 15:03 WBC RBC Hgb Hct MCV MCH MCHC RDW Lymph % (Auto) [place] % (Auto) Lymph # [place] # Seg Neutrophils % Seg Neuts % (Manual) Lymphocytes % (Manual) Monocytes % (Manual) Nucleated RBC % Seg Neutrophils # Seg Neutrophils # Man Lymphocytes # (Manual) Monocytes # (Manual) PT INR APTT D-Dimer Heparin Anti-Xa Level POC ABG pH POC ABG pCO2 POC ABG pO2 Sodium Potassium Chloride Carbon Dioxide BUN Creatinine Glucose POC Glucose 195 H 167 H Lactic Acid Calcium Phosphorus Total Bilirubin C-Reactive Protein NT-Pro-B Natriuret Pep Total Protein Albumin Urine WBC (Auto) Urine Creatinine 72.3 H 07/29/18 07/29/18 07/30/18 17:51 21:32 01:38 WBC RBC Hgb Hct MCV MCH MCHC RDW Lymph % (Auto) [place] % (Auto) Lymph # [place] # Seg Neutrophils % Seg Neuts % (Manual) Lymphocytes % (Manual) Monocytes % (Manual) Nucleated RBC % Seg Neutrophils # Seg Neutrophils # Man Lymphocytes # (Manual) Monocytes # (Manual) PT INR APTT D-Dimer Heparin Anti-Xa Level POC ABG pH POC ABG pCO2 POC ABG pO2 Sodium Potassium Chloride Carbon Dioxide BUN Creatinine Glucose POC Glucose 167 H 217 H 194 H Lactic Acid Calcium Phosphorus Total Bilirubin C-Reactive Protein NT-Pro-B Natriuret Pep Total Protein Albumin Urine WBC (Auto) Urine Creatinine 07/30/18 07/30/18 07/30/18 03:21 05:13 10:18 WBC RBC Hgb Hct MCV MCH MCHC RDW Lymph % (Auto) [place] % (Auto) Lymph # [place] # Seg Neutrophils % Seg Neuts % (Manual) Lymphocytes % (Manual) Monocytes % (Manual) Nucleated RBC % Seg Neutrophils # Seg Neutrophils # Man Lymphocytes # (Manual) Monocytes # (Manual) PT INR APTT D-Dimer Heparin Anti-Xa Level POC ABG pH POC ABG pCO2 50.3 H POC ABG pO2 78 L Sodium Potassium Chloride Carbon Dioxide BUN 41 H Creatinine Glucose 202 H POC Glucose 151 H Lactic Acid Calcium Phosphorus Total Bilirubin C-Reactive Protein NT-Pro-B Natriuret Pep Total Protein Albumin Urine WBC (Auto) Urine Creatinine 07/30/18 07/30/18 07/30/18 11:29 16:28 18:12 WBC RBC Hgb Hct MCV MCH MCHC RDW Lymph % (Auto) [place] % (Auto) Lymph # [place] # Seg Neutrophils % Seg Neuts % (Manual) Lymphocytes % (Manual) Monocytes % (Manual) Nucleated RBC % Seg Neutrophils # Seg Neutrophils # Man Lymphocytes # (Manual) Monocytes # (Manual) PT INR APTT D-Dimer Heparin Anti-Xa Level POC ABG pH 7.326 L POC ABG pCO2 53.2 H POC ABG pO2 70 L Sodium Potassium Chloride Carbon Dioxide BUN Creatinine Glucose POC Glucose 247 H 212 H Lactic Acid Calcium Phosphorus Total Bilirubin C-Reactive Protein NT-Pro-B Natriuret Pep Total Protein Albumin Urine WBC (Auto) Urine Creatinine 07/30/18 07/30/18 07/31/18 20:08 21:52 01:59 WBC RBC Hgb Hct MCV MCH MCHC RDW Lymph % (Auto) [place] % (Auto) Lymph # [place] # Seg Neutrophils % Seg Neuts % (Manual) Lymphocytes % (Manual) Monocytes % (Manual) Nucleated RBC % Seg Neutrophils # Seg Neutrophils # Man Lymphocytes # (Manual) Monocytes # (Manual) PT INR APTT D-Dimer Heparin Anti-Xa Level POC ABG pH POC ABG pCO2 POC ABG pO2 Sodium Potassium Chloride Carbon Dioxide BUN Creatinine Glucose POC Glucose 205 H 215 H 242 H Lactic Acid Calcium Phosphorus Total Bilirubin C-Reactive Protein NT-Pro-B Natriuret Pep Total Protein Albumin Urine WBC (Auto) Urine Creatinine 07/31/18 07/31/18 07/31/18 03:14 03:14 04:55 WBC RBC Hgb 10.6 L Hct 33.2 L MCV MCH MCHC RDW Lymph % (Auto) [place] % (Auto) Lymph # [place] # Seg Neutrophils % Seg Neuts % (Manual) Lymphocytes % (Manual) Monocytes % (Manual) Nucleated RBC % Seg Neutrophils # Seg Neutrophils # Man Lymphocytes # (Manual) Monocytes # (Manual) PT INR APTT D-Dimer Heparin Anti-Xa Level POC ABG pH 7.331 L POC ABG pCO2 67.1 H POC ABG pO2 Sodium Potassium Chloride Carbon Dioxide BUN 36 H Creatinine 0.7 L Glucose 242 H POC Glucose Lactic Acid Calcium 10.3 H Phosphorus 2.30 L Total Bilirubin C-Reactive Protein NT-Pro-B Natriuret Pep Total Protein Albumin Urine WBC (Auto) Urine Creatinine 07/31/18 07/31/18 07/31/18 05:37 10:08 14:07 WBC RBC Hgb Hct MCV MCH MCHC RDW Lymph % (Auto) [place] % (Auto) Lymph # [place] # Seg Neutrophils % Seg Neuts % (Manual) Lymphocytes % (Manual) Monocytes % (Manual) Nucleated RBC % Seg Neutrophils # Seg Neutrophils # Man Lymphocytes # (Manual) Monocytes # (Manual) PT INR APTT D-Dimer Heparin Anti-Xa Level POC ABG pH POC ABG pCO2 POC ABG pO2 Sodium Potassium Chloride Carbon Dioxide BUN Creatinine Glucose POC Glucose 193 H 247 H 225 H Lactic Acid Calcium Phosphorus Total Bilirubin C-Reactive Protein NT-Pro-B Natriuret Pep Total Protein Albumin Urine WBC (Auto) Urine Creatinine 07/31/18 07/31/18 08/01/18 18:12 21:34 02:00 WBC RBC Hgb Hct MCV MCH MCHC RDW Lymph % (Auto) [place] % (Auto) Lymph # [place] # Seg Neutrophils % Seg Neuts % (Manual) Lymphocytes % (Manual) Monocytes % (Manual) Nucleated RBC % Seg Neutrophils # Seg Neutrophils # Man Lymphocytes # (Manual) Monocytes # (Manual) PT INR APTT D-Dimer Heparin Anti-Xa Level POC ABG pH POC ABG pCO2 POC ABG pO2 Sodium Potassium Chloride Carbon Dioxide BUN Creatinine Glucose POC Glucose 197 H 204 H 239 H Lactic Acid Calcium Phosphorus Total Bilirubin C-Reactive Protein NT-Pro-B Natriuret Pep Total Protein Albumin Urine WBC (Auto) Urine Creatinine 08/01/18 08/01/18 08/01/18 04:13 04:37 05:29 WBC RBC Hgb Hct MCV MCH MCHC RDW Lymph % (Auto) [place] % (Auto) Lymph # [place] # Seg Neutrophils % Seg Neuts % (Manual) Lymphocytes % (Manual) Monocytes % (Manual) Nucleated RBC % Seg Neutrophils # Seg Neutrophils # Man Lymphocytes # (Manual) Monocytes # (Manual) PT INR APTT D-Dimer Heparin Anti-Xa Level POC ABG pH 7.296 L POC ABG pCO2 81.9 H POC ABG pO2 190 H Sodium 150 H D Potassium Chloride Carbon Dioxide 37 H D BUN 37 H Creatinine 0.6 L Glucose 223 H POC Glucose 219 H Lactic Acid Calcium Phosphorus Total Bilirubin C-Reactive Protein NT-Pro-B Natriuret Pep Total Protein Albumin Urine WBC (Auto) Urine Creatinine 08/01/18 08/01/18 08/01/18 09:28 11:00 17:36 WBC RBC Hgb Hct MCV MCH MCHC RDW Lymph % (Auto) [place] % (Auto) Lymph # [place] # Seg Neutrophils % Seg Neuts % (Manual) Lymphocytes % (Manual) Monocytes % (Manual) Nucleated RBC % Seg Neutrophils # Seg Neutrophils # Man Lymphocytes # (Manual) Monocytes # (Manual) PT INR APTT D-Dimer Heparin Anti-Xa Level POC ABG pH POC ABG pCO2 61.2 H POC ABG pO2 69 L Sodium Potassium Chloride Carbon Dioxide BUN Creatinine Glucose POC Glucose 185 H 234 H Lactic Acid Calcium Phosphorus Total Bilirubin C-Reactive Protein NT-Pro-B Natriuret Pep Total Protein Albumin Urine WBC (Auto) Urine Creatinine 08/01/18 08/02/18 08/02/18 21:54 00:08 00:44 WBC RBC Hgb Hct MCV MCH MCHC RDW Lymph % (Auto) [place] % (Auto) Lymph # [place] # Seg Neutrophils % Seg Neuts % (Manual) Lymphocytes % (Manual) Monocytes % (Manual) Nucleated RBC % Seg Neutrophils # Seg Neutrophils # Man Lymphocytes # (Manual) Monocytes # (Manual) PT INR APTT D-Dimer Heparin Anti-Xa Level 0.77 H POC ABG pH POC ABG pCO2 66.4 H POC ABG pO2 64 L Sodium Potassium Chloride Carbon Dioxide BUN Creatinine Glucose POC Glucose 242 H Lactic Acid Calcium Phosphorus Total Bilirubin C-Reactive Protein NT-Pro-B Natriuret Pep Total Protein Albumin Urine WBC (Auto) Urine Creatinine 08/02/18 08/02/18 08/02/18 02:46 04:45 04:45 WBC RBC Hgb 10.7 L Hct 33.7 L MCV MCH MCHC RDW Lymph % (Auto) [place] % (Auto) Lymph # [place] # Seg Neutrophils % Seg Neuts % (Manual) Lymphocytes % (Manual) Monocytes % (Manual) Nucleated RBC % Seg Neutrophils # Seg Neutrophils # Man Lymphocytes # (Manual) Monocytes # (Manual) PT INR APTT D-Dimer Heparin Anti-Xa Level POC ABG pH POC ABG pCO2 POC ABG pO2 Sodium 152 H Potassium Chloride 108.1 H Carbon Dioxide 39 H BUN 38 H Creatinine 0.6 L Glucose 226 H POC Glucose 206 H Lactic Acid Calcium Phosphorus Total Bilirubin C-Reactive Protein NT-Pro-B Natriuret Pep Total Protein Albumin Urine WBC (Auto) Urine Creatinine 08/02/18 08/02/18 08/02/18 05:31 09:46 14:23 WBC RBC Hgb Hct MCV MCH MCHC RDW Lymph % (Auto) [place] % (Auto) Lymph # [place] # Seg Neutrophils % Seg Neuts % (Manual) Lymphocytes % (Manual) Monocytes % (Manual) Nucleated RBC % Seg Neutrophils # Seg Neutrophils # Man Lymphocytes # (Manual) Monocytes # (Manual) PT INR APTT D-Dimer Heparin Anti-Xa Level 0.91 H POC ABG pH POC ABG pCO2 POC ABG pO2 Sodium Potassium Chloride Carbon Dioxide BUN Creatinine Glucose POC Glucose 214 H 210 H Lactic Acid Calcium Phosphorus Total Bilirubin C-Reactive Protein NT-Pro-B Natriuret Pep Total Protein Albumin Urine WBC (Auto) Urine Creatinine 08/02/18 08/02/18 08/02/18 15:46 17:56 21:50 WBC RBC Hgb Hct MCV MCH MCHC RDW Lymph % (Auto) [place] % (Auto) Lymph # [place] # Seg Neutrophils % Seg Neuts % (Manual) Lymphocytes % (Manual) Monocytes % (Manual) Nucleated RBC % Seg Neutrophils # Seg Neutrophils # Man Lymphocytes # (Manual) Monocytes # (Manual) PT INR APTT D-Dimer Heparin Anti-Xa Level 0.99 H POC ABG pH POC ABG pCO2 POC ABG pO2 Sodium Potassium Chloride Carbon Dioxide BUN Creatinine Glucose POC Glucose 252 H 222 H Lactic Acid Calcium Phosphorus Total Bilirubin C-Reactive Protein NT-Pro-B Natriuret Pep Total Protein Albumin Urine WBC (Auto) Urine Creatinine 08/03/18 08/03/18 08/03/18 02:18 05:21 05:25 WBC RBC Hgb Hct MCV MCH MCHC RDW Lymph % (Auto) [place] % (Auto) Lymph # [place] # Seg Neutrophils % Seg Neuts % (Manual) Lymphocytes % (Manual) Monocytes % (Manual) Nucleated RBC % Seg Neutrophils # Seg Neutrophils # Man Lymphocytes # (Manual) Monocytes # (Manual) PT INR APTT D-Dimer Heparin Anti-Xa Level POC ABG pH POC ABG pCO2 POC ABG pO2 Sodium 151 H Potassium Chloride 107.3 H Carbon Dioxide 37 H BUN 42 H Creatinine 0.6 L Glucose 263 H POC Glucose 241 H 241 H Lactic Acid Calcium Phosphorus Total Bilirubin C-Reactive Protein NT-Pro-B Natriuret Pep Total Protein Albumin Urine WBC (Auto) Urine Creatinine 08/03/18 08/03/18 08/03/18 09:11 12:20 14:33 WBC RBC Hgb Hct MCV MCH MCHC RDW Lymph % (Auto) [place] % (Auto) Lymph # [place] # Seg Neutrophils % Seg Neuts % (Manual) Lymphocytes % (Manual) Monocytes % (Manual) Nucleated RBC % Seg Neutrophils # Seg Neutrophils # Man Lymphocytes # (Manual) Monocytes # (Manual) PT INR APTT D-Dimer Heparin Anti-Xa Level POC ABG pH POC ABG pCO2 POC ABG pO2 Sodium Potassium Chloride Carbon Dioxide BUN Creatinine Glucose POC Glucose 272 H 234 H 247 H Lactic Acid Calcium Phosphorus Total Bilirubin C-Reactive Protein NT-Pro-B Natriuret Pep Total Protein Albumin Urine WBC (Auto) Urine Creatinine 08/03/18 08/03/18 08/04/18 16:48 21:21 01:56 WBC RBC Hgb Hct MCV MCH MCHC RDW Lymph % (Auto) [place] % (Auto) Lymph # [place] # Seg Neutrophils % Seg Neuts % (Manual) Lymphocytes % (Manual) Monocytes % (Manual) Nucleated RBC % Seg Neutrophils # Seg Neutrophils # Man Lymphocytes # (Manual) Monocytes # (Manual) PT INR APTT D-Dimer Heparin Anti-Xa Level POC ABG pH POC ABG pCO2 POC ABG pO2 Sodium Potassium Chloride Carbon Dioxide BUN Creatinine Glucose POC Glucose 180 H 189 H Lactic Acid Calcium Phosphorus Total Bilirubin C-Reactive Protein 2.30 H NT-Pro-B Natriuret Pep Total Protein Albumin Urine WBC (Auto) Urine Creatinine 08/04/18 08/04/18 08/04/18 01:58 05:05 05:05 WBC 25.5 H RBC 3.31 L Hgb 10.8 L Hct 34.1 L MCV 103 H MCH 33 H MCHC RDW 16.0 H Lymph % (Auto) [place] % (Auto) Lymph # [place] # Seg Neutrophils % Seg Neuts % (Manual) Lymphocytes % (Manual) 8.0 L Monocytes % (Manual) Nucleated RBC % 2.0 H Seg Neutrophils # Seg Neutrophils # Man 16.3 H Lymphocytes # (Manual) Monocytes # (Manual) 1.0 H PT INR APTT D-Dimer Heparin Anti-Xa Level 0.79 H POC ABG pH POC ABG pCO2 POC ABG pO2 Sodium 148 H Potassium Chloride Carbon Dioxide 36 H BUN 35 H Creatinine 0.6 L Glucose 160 H POC Glucose Lactic Acid Calcium Phosphorus Total Bilirubin C-Reactive Protein NT-Pro-B Natriuret Pep Total Protein Albumin Urine WBC (Auto) Urine Creatinine 08/04/18 08/04/18 08/04/18 05:24 05:33 08:46 WBC RBC Hgb Hct MCV MCH MCHC RDW Lymph % (Auto) [place] % (Auto) Lymph # [place] # Seg Neutrophils % Seg Neuts % (Manual) Lymphocytes % (Manual) Monocytes % (Manual) Nucleated RBC % Seg Neutrophils # Seg Neutrophils # Man Lymphocytes # (Manual) Monocytes # (Manual) PT INR APTT D-Dimer Heparin Anti-Xa Level 0.76 H POC ABG pH POC ABG pCO2 65.7 H POC ABG pO2 63 L Sodium Potassium Chloride Carbon Dioxide BUN Creatinine Glucose POC Glucose 159 H Lactic Acid Calcium Phosphorus Total Bilirubin C-Reactive Protein NT-Pro-B Natriuret Pep Total Protein Albumin Urine WBC (Auto) Urine Creatinine 08/04/18 08/04/18 08/04/18 09:12 15:38 18:20 WBC RBC Hgb Hct MCV MCH MCHC RDW Lymph % (Auto) [place] % (Auto) Lymph # [place] # Seg Neutrophils % Seg Neuts % (Manual) Lymphocytes % (Manual) Monocytes % (Manual) Nucleated RBC % Seg Neutrophils # Seg Neutrophils # Man Lymphocytes # (Manual) Monocytes # (Manual) PT INR APTT D-Dimer Heparin Anti-Xa Level POC ABG pH POC ABG pCO2 POC ABG pO2 Sodium Potassium Chloride Carbon Dioxide BUN Creatinine Glucose POC Glucose 140 H 267 H 252 H Lactic Acid Calcium Phosphorus Total Bilirubin C-Reactive Protein NT-Pro-B Natriuret Pep Total Protein Albumin Urine WBC (Auto) Urine Creatinine 08/04/18 08/05/18 08/05/18 21:17 02:51 04:36 WBC RBC Hgb Hct MCV MCH MCHC RDW Lymph % (Auto) [place] % (Auto) Lymph # [place] # Seg Neutrophils % Seg Neuts % (Manual) Lymphocytes % (Manual) Monocytes % (Manual) Nucleated RBC % Seg Neutrophils # Seg Neutrophils # Man Lymphocytes # (Manual) Monocytes # (Manual) PT INR APTT D-Dimer Heparin Anti-Xa Level POC ABG pH POC ABG pCO2 POC ABG pO2 Sodium Potassium Chloride Carbon Dioxide BUN Creatinine Glucose POC Glucose 181 H 240 H 255 H Lactic Acid Calcium Phosphorus Total Bilirubin C-Reactive Protein NT-Pro-B Natriuret Pep Total Protein Albumin Urine WBC (Auto) Urine Creatinine 08/05/18 08/05/18 08/05/18 04:55 10:21 12:39 WBC 21.8 H RBC 3.18 L Hgb 10.3 L Hct 32.6 L MCV 103 H MCH 33 H MCHC RDW 16.3 H Lymph % (Auto) [place] % (Auto) Lymph # [place] # Seg Neutrophils % Seg Neuts % (Manual) 88.0 H Lymphocytes % (Manual) 4.0 L Monocytes % (Manual) Nucleated RBC % Seg Neutrophils # Seg Neutrophils # Man 19.2 H Lymphocytes # (Manual) 0.9 L Monocytes # (Manual) PT INR APTT D-Dimer Heparin Anti-Xa Level POC ABG pH 7.506 H POC ABG pCO2 56.0 H POC ABG pO2 63 L Sodium Potassium Chloride Carbon Dioxide BUN Creatinine Glucose POC Glucose 227 H Lactic Acid Calcium Phosphorus Total Bilirubin C-Reactive Protein NT-Pro-B Natriuret Pep Total Protein Albumin Urine WBC (Auto) Urine Creatinine 08/05/18 08/05/18 08/05/18 12:39 14:10 17:30 WBC RBC Hgb Hct MCV MCH MCHC RDW Lymph % (Auto) [place] % (Auto) Lymph # [place] # Seg Neutrophils % Seg Neuts % (Manual) Lymphocytes % (Manual) Monocytes % (Manual) Nucleated RBC % Seg Neutrophils # Seg Neutrophils # Man Lymphocytes # (Manual) Monocytes # (Manual) PT INR APTT D-Dimer Heparin Anti-Xa Level < 0.10 L POC ABG pH POC ABG pCO2 POC ABG pO2 Sodium Potassium Chloride 96.8 L Carbon Dioxide 38 H BUN 36 H Creatinine 0.6 L Glucose 218 H POC Glucose 221 H Lactic Acid Calcium Phosphorus Total Bilirubin C-Reactive Protein NT-Pro-B Natriuret Pep Total Protein Albumin Urine WBC (Auto) Urine Creatinine 08/05/18 08/05/18 08/06/18 18:32 23:32 02:26 WBC RBC Hgb Hct MCV MCH MCHC RDW Lymph % (Auto) [place] % (Auto) Lymph # [place] # Seg Neutrophils % Seg Neuts % (Manual) Lymphocytes % (Manual) Monocytes % (Manual) Nucleated RBC % Seg Neutrophils # Seg Neutrophils # Man Lymphocytes # (Manual) Monocytes # (Manual) PT INR APTT D-Dimer Heparin Anti-Xa Level POC ABG pH POC ABG pCO2 POC ABG pO2 Sodium Potassium Chloride Carbon Dioxide BUN Creatinine Glucose POC Glucose 253 H 215 H 227 H Lactic Acid Calcium Phosphorus Total Bilirubin C-Reactive Protein NT-Pro-B Natriuret Pep Total Protein Albumin Urine WBC (Auto) Urine Creatinine 08/06/18 08/06/18 08/06/18 05:17 05:17 05:32 WBC 18.9 H RBC 3.06 L Hgb 10.2 L Hct 31.3 L MCV 102 H MCH 33 H MCHC RDW 16.1 H Lymph % (Auto) [place] % (Auto) Lymph # [place] # Seg Neutrophils % Seg Neuts % (Manual) Lymphocytes % (Manual) Monocytes % (Manual) Nucleated RBC % Seg Neutrophils # Seg Neutrophils # Man Lymphocytes # (Manual) Monocytes # (Manual) PT INR APTT D-Dimer Heparin Anti-Xa Level POC ABG pH 7.468 H POC ABG pCO2 59.5 H POC ABG pO2 64 L Sodium Potassium Chloride Carbon Dioxide 37 H BUN 37 H Creatinine 0.5 L Glucose 226 H POC Glucose Lactic Acid Calcium Phosphorus Total Bilirubin C-Reactive Protein NT-Pro-B Natriuret Pep Total Protein Albumin Urine WBC (Auto) Urine Creatinine 08/06/18 08/06/18 08/06/18 10:11 15:03 17:48 WBC RBC Hgb Hct MCV MCH MCHC RDW Lymph % (Auto) [place] % (Auto) Lymph # [place] # Seg Neutrophils % Seg Neuts % (Manual) Lymphocytes % (Manual) Monocytes % (Manual) Nucleated RBC % Seg Neutrophils # Seg Neutrophils # Man Lymphocytes # (Manual) Monocytes # (Manual) PT INR APTT D-Dimer Heparin Anti-Xa Level POC ABG pH POC ABG pCO2 POC ABG pO2 Sodium Potassium Chloride Carbon Dioxide BUN Creatinine Glucose POC Glucose 207 H 229 H 188 H Lactic Acid Calcium Phosphorus Total Bilirubin C-Reactive Protein NT-Pro-B Natriuret Pep Total Protein Albumin Urine WBC (Auto) Urine Creatinine 08/06/18 08/07/18 08/07/18 22:53 01:55 05:30 WBC RBC Hgb Hct MCV MCH MCHC RDW Lymph % (Auto) [place] % (Auto) Lymph # [place] # Seg Neutrophils % Seg Neuts % (Manual) Lymphocytes % (Manual) Monocytes % (Manual) Nucleated RBC % Seg Neutrophils # Seg Neutrophils # Man Lymphocytes # (Manual) Monocytes # (Manual) PT INR APTT D-Dimer Heparin Anti-Xa Level POC ABG pH POC ABG pCO2 69.6 H POC ABG pO2 64 L Sodium Potassium Chloride Carbon Dioxide BUN Creatinine Glucose POC Glucose 146 H 143 H Lactic Acid Calcium Phosphorus Total Bilirubin C-Reactive Protein NT-Pro-B Natriuret Pep Total Protein Albumin Urine WBC (Auto) Urine Creatinine 08/07/18 08/07/18 08/07/18 09:59 14:16 15:08 WBC RBC Hgb 10.3 L Hct 32.2 L MCV MCH MCHC RDW Lymph % (Auto) [place] % (Auto) Lymph # [place] # Seg Neutrophils % Seg Neuts % (Manual) Lymphocytes % (Manual) Monocytes % (Manual) Nucleated RBC % Seg Neutrophils # Seg Neutrophils # Man Lymphocytes # (Manual) Monocytes # (Manual) PT INR APTT D-Dimer Heparin Anti-Xa Level POC ABG pH POC ABG pCO2 POC ABG pO2 Sodium Potassium Chloride Carbon Dioxide BUN Creatinine Glucose POC Glucose 188 H 223 H Lactic Acid Calcium Phosphorus Total Bilirubin C-Reactive Protein NT-Pro-B Natriuret Pep Total Protein Albumin Urine WBC (Auto) Urine Creatinine 08/07/18 08/07/18 08/07/18 15:08 17:39 22:04 WBC RBC Hgb Hct MCV MCH MCHC RDW Lymph % (Auto) [place] % (Auto) Lymph # [place] # Seg Neutrophils % Seg Neuts % (Manual) Lymphocytes % (Manual) Monocytes % (Manual) Nucleated RBC % Seg Neutrophils # Seg Neutrophils # Man Lymphocytes # (Manual) Monocytes # (Manual) PT INR APTT 23.2 L D-Dimer Heparin Anti-Xa Level POC ABG pH POC ABG pCO2 POC ABG pO2 Sodium Potassium Chloride Carbon Dioxide BUN Creatinine Glucose POC Glucose 208 H 163 H Lactic Acid Calcium Phosphorus Total Bilirubin C-Reactive Protein NT-Pro-B Natriuret Pep Total Protein Albumin Urine WBC (Auto) Urine Creatinine 08/07/18 08/08/18 08/08/18 22:30 01:57 02:09 WBC 14.6 H RBC 2.88 L Hgb 9.5 L Hct 29.9 L MCV 104 H MCH 33 H MCHC RDW 16.8 H Lymph % (Auto) [place] % (Auto) Lymph # [place] # Seg Neutrophils % Seg Neuts % (Manual) 73.0 H Lymphocytes % (Manual) 9.0 L Monocytes % (Manual) 10.0 H Nucleated RBC % Seg Neutrophils # Seg Neutrophils # Man 10.7 H Lymphocytes # (Manual) Monocytes # (Manual) 1.5 H PT INR APTT D-Dimer Heparin Anti-Xa Level 0.25 L POC ABG pH POC ABG pCO2 POC ABG pO2 Sodium Potassium Chloride Carbon Dioxide BUN Creatinine Glucose POC Glucose 120 H Lactic Acid Calcium Phosphorus Total Bilirubin C-Reactive Protein NT-Pro-B Natriuret Pep Total Protein Albumin Urine WBC (Auto) Urine Creatinine 08/08/18 08/08/18 08/08/18 02:09 04:58 05:19 WBC RBC Hgb Hct MCV MCH MCHC RDW Lymph % (Auto) [place] % (Auto) Lymph # [place] # Seg Neutrophils % Seg Neuts % (Manual) Lymphocytes % (Manual) Monocytes % (Manual) Nucleated RBC % Seg Neutrophils # Seg Neutrophils # Man Lymphocytes # (Manual) Monocytes # (Manual) PT INR APTT D-Dimer Heparin Anti-Xa Level POC ABG pH 7.461 H POC ABG pCO2 57.3 H POC ABG pO2 62 L Sodium Potassium Chloride Carbon Dioxide 39 H BUN 29 H Creatinine 0.5 L Glucose 124 H POC Glucose 139 H Lactic Acid Calcium Phosphorus Total Bilirubin C-Reactive Protein NT-Pro-B Natriuret Pep Total Protein Albumin Urine WBC (Auto) Urine Creatinine 08/08/18 08/08/18 08/08/18 10:22 14:52 16:12 WBC RBC Hgb Hct MCV MCH MCHC RDW Lymph % (Auto) [place] % (Auto) Lymph # [place] # Seg Neutrophils % Seg Neuts % (Manual) Lymphocytes % (Manual) Monocytes % (Manual) Nucleated RBC % Seg Neutrophils # Seg Neutrophils # Man Lymphocytes # (Manual) Monocytes # (Manual) PT INR APTT D-Dimer Heparin Anti-Xa Level POC ABG pH POC ABG pCO2 POC ABG pO2 Sodium Potassium Chloride Carbon Dioxide BUN Creatinine Glucose POC Glucose 169 H 149 H 136 H Lactic Acid Calcium Phosphorus Total Bilirubin C-Reactive Protein NT-Pro-B Natriuret Pep Total Protein Albumin Urine WBC (Auto) Urine Creatinine 12/25/18 12/25/18 12/25/18 02:26 03:52 03:52 WBC 15.9 H RBC 2.87 L Hgb 9.6 L Hct 30.7 L MCV 107 H MCH 34 H MCHC 31 L RDW 17.8 H Lymph % (Auto) 3.9 L [place] % (Auto) 8.1 H Lymph # 0.6 L [place] # 1.3 H Seg Neutrophils % 87.1 H Seg Neuts % (Manual) Lymphocytes % (Manual) Monocytes % (Manual) Nucleated RBC % Seg Neutrophils # 13.9 H Seg Neutrophils # Man Lymphocytes # (Manual) Monocytes # (Manual) PT INR APTT D-Dimer Heparin Anti-Xa Level 0.25 L POC ABG pH POC ABG pCO2 POC ABG pO2 Sodium Potassium Chloride Carbon Dioxide BUN Creatinine Glucose POC Glucose 126 H Lactic Acid Calcium Phosphorus Total Bilirubin C-Reactive Protein NT-Pro-B Natriuret Pep Total Protein Albumin Urine WBC (Auto) Urine Creatinine 08/09/18 08/09/18 08/09/18 03:52 05:34 06:48 WBC RBC Hgb Hct MCV MCH MCHC RDW Lymph % (Auto) [place] % (Auto) Lymph # [place] # Seg Neutrophils % Seg Neuts % (Manual) Lymphocytes % (Manual) Monocytes % (Manual) Nucleated RBC % Seg Neutrophils # Seg Neutrophils # Man Lymphocytes # (Manual) Monocytes # (Manual) PT INR APTT D-Dimer Heparin Anti-Xa Level POC ABG pH POC ABG pCO2 57.5 H POC ABG pO2 58 L Sodium Potassium Chloride Carbon Dioxide 39 H BUN 26 H Creatinine 0.5 L Glucose 128 H POC Glucose 171 H Lactic Acid Calcium Phosphorus Total Bilirubin C-Reactive Protein NT-Pro-B Natriuret Pep Total Protein Albumin Urine WBC (Auto) Urine Creatinine 08/09/18 08/09/18 08/09/18 09:28 09:36 13:44 WBC RBC Hgb Hct MCV MCH MCHC RDW Lymph % (Auto) [place] % (Auto) Lymph # [place] # Seg Neutrophils % Seg Neuts % (Manual) Lymphocytes % (Manual) Monocytes % (Manual) Nucleated RBC % Seg Neutrophils # Seg Neutrophils # Man Lymphocytes # (Manual) Monocytes # (Manual) PT INR APTT D-Dimer Heparin Anti-Xa Level 0.26 L POC ABG pH POC ABG pCO2 POC ABG pO2 Sodium Potassium Chloride Carbon Dioxide BUN Creatinine Glucose POC Glucose 183 H 184 H Lactic Acid Calcium Phosphorus Total Bilirubin C-Reactive Protein NT-Pro-B Natriuret Pep Total Protein Albumin Urine WBC (Auto) Urine Creatinine 08/09/18 08/10/18 08/10/18 17:55 04:49 05:20 WBC RBC Hgb Hct MCV MCH MCHC RDW Lymph % (Auto) [place] % (Auto) Lymph # [place] # Seg Neutrophils % Seg Neuts % (Manual) Lymphocytes % (Manual) Monocytes % (Manual) Nucleated RBC % Seg Neutrophils # Seg Neutrophils # Man Lymphocytes # (Manual) Monocytes # (Manual) PT INR APTT D-Dimer Heparin Anti-Xa Level POC ABG pH POC ABG pCO2 59.9 H POC ABG pO2 59 L Sodium Potassium Chloride Carbon Dioxide BUN Creatinine Glucose POC Glucose 148 H 59 L Lactic Acid Calcium Phosphorus Total Bilirubin C-Reactive Protein NT-Pro-B Natriuret Pep Total Protein Albumin Urine WBC (Auto) Urine Creatinine 08/10/18 08/10/18 08/10/18 05:53 17:12 21:17 WBC RBC Hgb Hct MCV MCH MCHC RDW Lymph % (Auto) [place] % (Auto) Lymph # [place] # Seg Neutrophils % Seg Neuts % (Manual) Lymphocytes % (Manual) Monocytes % (Manual) Nucleated RBC % Seg Neutrophils # Seg Neutrophils # Man Lymphocytes # (Manual) Monocytes # (Manual) PT INR APTT D-Dimer Heparin Anti-Xa Level POC ABG pH POC ABG pCO2 POC ABG pO2 Sodium Potassium Chloride Carbon Dioxide BUN Creatinine Glucose POC Glucose 128 H 110 H 109 H Lactic Acid Calcium Phosphorus Total Bilirubin C-Reactive Protein NT-Pro-B Natriuret Pep Total Protein Albumin Urine WBC (Auto) Urine Creatinine 08/11/18 08/11/18 08/11/18 00:54 02:28 04:17 WBC RBC Hgb 7.8 L Hct 24.1 L D MCV MCH MCHC RDW Lymph % (Auto) [place] % (Auto) Lymph # [place] # Seg Neutrophils % Seg Neuts % (Manual) Lymphocytes % (Manual) Monocytes % (Manual) Nucleated RBC % Seg Neutrophils # Seg Neutrophils # Man Lymphocytes # (Manual) Monocytes # (Manual) PT INR APTT D-Dimer Heparin Anti-Xa Level 0.19 L POC ABG pH POC ABG pCO2 POC ABG pO2 Sodium Potassium Chloride Carbon Dioxide BUN Creatinine Glucose POC Glucose 124 H Lactic Acid Calcium Phosphorus Total Bilirubin C-Reactive Protein NT-Pro-B Natriuret Pep Total Protein Albumin Urine WBC (Auto) Urine Creatinine 08/11/18 08/11/18 08/11/18 05:10 07:42 10:27 WBC RBC Hgb Hct MCV MCH MCHC RDW Lymph % (Auto) [place] % (Auto) Lymph # [place] # Seg Neutrophils % Seg Neuts % (Manual) Lymphocytes % (Manual) Monocytes % (Manual) Nucleated RBC % Seg Neutrophils # Seg Neutrophils # Man Lymphocytes # (Manual) Monocytes # (Manual) PT INR APTT D-Dimer Heparin Anti-Xa Level 0.20 L POC ABG pH POC ABG pCO2 POC ABG pO2 Sodium Potassium Chloride Carbon Dioxide BUN Creatinine Glucose POC Glucose 150 H 156 H Lactic Acid Calcium Phosphorus Total Bilirubin C-Reactive Protein NT-Pro-B Natriuret Pep Total Protein Albumin Urine WBC (Auto) Urine Creatinine 08/11/18 08/11/18 08/11/18 13:54 15:06 18:13 WBC RBC Hgb Hct MCV MCH MCHC RDW Lymph % (Auto) [place] % (Auto) Lymph # [place] # Seg Neutrophils % Seg Neuts % (Manual) Lymphocytes % (Manual) Monocytes % (Manual) Nucleated RBC % Seg Neutrophils # Seg Neutrophils # Man Lymphocytes # (Manual) Monocytes # (Manual) PT INR APTT D-Dimer Heparin Anti-Xa Level POC ABG pH 7.471 H POC ABG pCO2 45.5 H POC ABG pO2 79 L Sodium Potassium Chloride Carbon Dioxide BUN Creatinine Glucose POC Glucose 177 H 143 H Lactic Acid Calcium Phosphorus Total Bilirubin C-Reactive Protein NT-Pro-B Natriuret Pep Total Protein Albumin Urine WBC (Auto) Urine Creatinine 08/11/18 08/11/18 08/11/18 18:33 21:22 Unknown WBC RBC Hgb Hct MCV MCH MCHC RDW Lymph % (Auto) [place] % (Auto) Lymph # [place] # Seg Neutrophils % Seg Neuts % (Manual) Lymphocytes % (Manual) Monocytes % (Manual) Nucleated RBC % Seg Neutrophils # Seg Neutrophils # Man Lymphocytes # (Manual) Monocytes # (Manual) PT INR APTT D-Dimer Heparin Anti-Xa Level 0.29 L POC ABG pH POC ABG pCO2 POC ABG pO2 Sodium 136 L Potassium Chloride 96.5 L Carbon Dioxide 32 H D BUN Creatinine 0.5 L Glucose 186 H POC Glucose 151 H Lactic Acid Calcium Phosphorus Total Bilirubin C-Reactive Protein NT-Pro-B Natriuret Pep Total Protein Albumin Urine WBC (Auto) Urine Creatinine 12/27/18 12/28/18 12/28/18 Unknown 02:09 05:29 WBC 12.1 H RBC 2.50 L Hgb 8.2 L Hct 25.7 L MCV 103 H MCH 33 H MCHC RDW 17.0 H Lymph % (Auto) 5.1 L [place] % (Auto) 9.5 H Lymph # 0.6 L [place] # 1.2 H Seg Neutrophils % 84.8 H Seg Neuts % (Manual) Lymphocytes % (Manual) Monocytes % (Manual) Nucleated RBC % Seg Neutrophils # 10.3 H Seg Neutrophils # Man Lymphocytes # (Manual) Monocytes # (Manual) PT INR APTT D-Dimer Heparin Anti-Xa Level POC ABG pH POC ABG pCO2 POC ABG pO2 Sodium Potassium Chloride Carbon Dioxide BUN Creatinine Glucose POC Glucose 159 H 136 H Lactic Acid Calcium Phosphorus Total Bilirubin C-Reactive Protein NT-Pro-B Natriuret Pep Total Protein Albumin Urine WBC (Auto) Urine Creatinine 08/12/18 08/12/18 08/12/18 07:33 09:59 13:59 WBC RBC Hgb Hct MCV MCH MCHC RDW Lymph % (Auto) [place] % (Auto) Lymph # [place] # Seg Neutrophils % Seg Neuts % (Manual) Lymphocytes % (Manual) Monocytes % (Manual) Nucleated RBC % Seg Neutrophils # Seg Neutrophils # Man Lymphocytes # (Manual) Monocytes # (Manual) PT INR APTT D-Dimer Heparin Anti-Xa Level POC ABG pH POC ABG pCO2 POC ABG pO2 Sodium Potassium Chloride Carbon Dioxide BUN Creatinine Glucose POC Glucose 138 H 157 H 167 H Lactic Acid Calcium Phosphorus Total Bilirubin C-Reactive Protein NT-Pro-B Natriuret Pep Total Protein Albumin Urine WBC (Auto) Urine Creatinine 08/12/18 08/12/18 08/12/18 14:31 14:56 17:39 WBC RBC Hgb Hct MCV MCH MCHC RDW Lymph % (Auto) [place] % (Auto) Lymph # [place] # Seg Neutrophils % Seg Neuts % (Manual) Lymphocytes % (Manual) Monocytes % (Manual) Nucleated RBC % Seg Neutrophils # Seg Neutrophils # Man Lymphocytes # (Manual) Monocytes # (Manual) PT INR APTT D-Dimer Heparin Anti-Xa Level 1.18 H POC ABG pH 7.466 H POC ABG pCO2 POC ABG pO2 58 L Sodium Potassium Chloride Carbon Dioxide BUN Creatinine Glucose POC Glucose 168 H Lactic Acid Calcium Phosphorus Total Bilirubin C-Reactive Protein NT-Pro-B Natriuret Pep Total Protein Albumin Urine WBC (Auto) Urine Creatinine 08/12/18 08/13/18 08/13/18 21:38 02:17 05:20 WBC RBC Hgb 8.0 L Hct 24.5 L MCV MCH MCHC RDW Lymph % (Auto) [place] % (Auto) Lymph # [place] # Seg Neutrophils % Seg Neuts % (Manual) Lymphocytes % (Manual) Monocytes % (Manual) Nucleated RBC % Seg Neutrophils # Seg Neutrophils # Man Lymphocytes # (Manual) Monocytes # (Manual) PT INR APTT D-Dimer Heparin Anti-Xa Level POC ABG pH POC ABG pCO2 POC ABG pO2 Sodium Potassium Chloride Carbon Dioxide BUN Creatinine Glucose POC Glucose 168 H 157 H Lactic Acid Calcium Phosphorus Total Bilirubin C-Reactive Protein NT-Pro-B Natriuret Pep Total Protein Albumin Urine WBC (Auto) Urine Creatinine 08/13/18 08/13/18 08/13/18 09:28 10:07 14:09 WBC RBC Hgb Hct MCV MCH MCHC RDW Lymph % (Auto) [place] % (Auto) Lymph # [place] # Seg Neutrophils % Seg Neuts % (Manual) Lymphocytes % (Manual) Monocytes % (Manual) Nucleated RBC % Seg Neutrophils # Seg Neutrophils # Man Lymphocytes # (Manual) Monocytes # (Manual) PT INR APTT D-Dimer Heparin Anti-Xa Level POC ABG pH 7.453 H POC ABG pCO2 47.5 H POC ABG pO2 Sodium Potassium Chloride Carbon Dioxide BUN Creatinine Glucose POC Glucose 177 H 178 H Lactic Acid Calcium Phosphorus Total Bilirubin C-Reactive Protein NT-Pro-B Natriuret Pep Total Protein Albumin Urine WBC (Auto) Urine Creatinine 08/13/18 08/13/18 08/14/18 17:33 21:28 01:58 WBC RBC Hgb Hct MCV MCH MCHC RDW Lymph % (Auto) [place] % (Auto) Lymph # [place] # Seg Neutrophils % Seg Neuts % (Manual) Lymphocytes % (Manual) Monocytes % (Manual) Nucleated RBC % Seg Neutrophils # Seg Neutrophils # Man Lymphocytes # (Manual) Monocytes # (Manual) PT INR APTT D-Dimer Heparin Anti-Xa Level POC ABG pH POC ABG pCO2 POC ABG pO2 Sodium Potassium Chloride Carbon Dioxide BUN Creatinine Glucose POC Glucose 130 H 145 H 161 H Lactic Acid Calcium Phosphorus Total Bilirubin C-Reactive Protein NT-Pro-B Natriuret Pep Total Protein Albumin Urine WBC (Auto) Urine Creatinine 08/14/18 08/14/18 08/14/18 05:22 06:10 09:59 WBC RBC Hgb Hct MCV MCH MCHC RDW Lymph % (Auto) [place] % (Auto) Lymph # [place] # Seg Neutrophils % Seg Neuts % (Manual) Lymphocytes % (Manual) Monocytes % (Manual) Nucleated RBC % Seg Neutrophils # Seg Neutrophils # Man Lymphocytes # (Manual) Monocytes # (Manual) PT INR APTT D-Dimer Heparin Anti-Xa Level POC ABG pH POC ABG pCO2 POC ABG pO2 Sodium Potassium Chloride Carbon Dioxide BUN Creatinine 0.5 L Glucose 125 H POC Glucose 117 H 107 H Lactic Acid Calcium Phosphorus Total Bilirubin C-Reactive Protein NT-Pro-B Natriuret Pep Total Protein Albumin Urine WBC (Auto) Urine Creatinine 08/14/18 08/14/18 08/14/18 14:04 17:49 21:27 WBC RBC Hgb Hct MCV MCH MCHC RDW Lymph % (Auto) [place] % (Auto) Lymph # [place] # Seg Neutrophils % Seg Neuts % (Manual) Lymphocytes % (Manual) Monocytes % (Manual) Nucleated RBC % Seg Neutrophils # Seg Neutrophils # Man Lymphocytes # (Manual) Monocytes # (Manual) PT INR APTT D-Dimer Heparin Anti-Xa Level POC ABG pH POC ABG pCO2 POC ABG pO2 Sodium Potassium Chloride Carbon Dioxide BUN Creatinine Glucose POC Glucose 137 H 150 H 149 H Lactic Acid Calcium Phosphorus Total Bilirubin C-Reactive Protein NT-Pro-B Natriuret Pep Total Protein Albumin Urine WBC (Auto) Urine Creatinine 08/14/18 08/15/18 08/15/18 21:55 01:50 03:12 WBC 13.3 H RBC 2.79 L Hgb 9.3 L 8.4 L Hct 28.6 L 25.7 L MCV 102 H MCH 33 H MCHC RDW 16.6 H Lymph % (Auto) [place] % (Auto) Lymph # [place] # Seg Neutrophils % Seg Neuts % (Manual) Lymphocytes % (Manual) Monocytes % (Manual) Nucleated RBC % Seg Neutrophils # Seg Neutrophils # Man Lymphocytes # (Manual) Monocytes # (Manual) PT INR APTT D-Dimer Heparin Anti-Xa Level POC ABG pH POC ABG pCO2 POC ABG pO2 Sodium Potassium Chloride Carbon Dioxide BUN Creatinine Glucose POC Glucose 186 H Lactic Acid Calcium Phosphorus Total Bilirubin C-Reactive Protein NT-Pro-B Natriuret Pep Total Protein Albumin Urine WBC (Auto) Urine Creatinine 08/15/18 08/15/18 08/15/18 09:55 11:45 13:47 WBC RBC 2.38 L Hgb 8.0 L Hct 24.5 L MCV 103 H MCH 34 H MCHC RDW 16.8 H Lymph % (Auto) 4.9 L [place] % (Auto) Lymph # 0.5 L [place] # Seg Neutrophils % 88.1 H Seg Neuts % (Manual) Lymphocytes % (Manual) Monocytes % (Manual) Nucleated RBC % Seg Neutrophils # 9.6 H Seg Neutrophils # Man Lymphocytes # (Manual) Monocytes # (Manual) PT INR APTT D-Dimer Heparin Anti-Xa Level POC ABG pH POC ABG pCO2 POC ABG pO2 Sodium Potassium Chloride Carbon Dioxide BUN Creatinine Glucose POC Glucose 133 H 142 H Lactic Acid Calcium Phosphorus Total Bilirubin C-Reactive Protein NT-Pro-B Natriuret Pep Total Protein Albumin Urine WBC (Auto) Urine Creatinine 08/15/18 08/15/18 08/16/18 17:54 21:58 02:20 WBC RBC Hgb Hct MCV MCH MCHC RDW Lymph % (Auto) [place] % (Auto) Lymph # [place] # Seg Neutrophils % Seg Neuts % (Manual) Lymphocytes % (Manual) Monocytes % (Manual) Nucleated RBC % Seg Neutrophils # Seg Neutrophils # Man Lymphocytes # (Manual) Monocytes # (Manual) PT INR APTT D-Dimer Heparin Anti-Xa Level POC ABG pH POC ABG pCO2 POC ABG pO2 Sodium Potassium Chloride Carbon Dioxide BUN Creatinine Glucose POC Glucose 131 H 157 H 108 H Lactic Acid Calcium Phosphorus Total Bilirubin C-Reactive Protein NT-Pro-B Natriuret Pep Total Protein Albumin Urine WBC (Auto) Urine Creatinine 08/16/18 08/16/18 08/16/18 05:16 10:20 10:23 WBC RBC Hgb Hct MCV MCH MCHC RDW Lymph % (Auto) [place] % (Auto) Lymph # [place] # Seg Neutrophils % Seg Neuts % (Manual) Lymphocytes % (Manual) Monocytes % (Manual) Nucleated RBC % Seg Neutrophils # Seg Neutrophils # Man Lymphocytes # (Manual) Monocytes # (Manual) PT INR APTT D-Dimer Heparin Anti-Xa Level POC ABG pH POC ABG pCO2 POC ABG pO2 63 L Sodium Potassium Chloride Carbon Dioxide BUN Creatinine Glucose POC Glucose 115 H 146 H Lactic Acid Calcium Phosphorus Total Bilirubin C-Reactive Protein NT-Pro-B Natriuret Pep Total Protein Albumin Urine WBC (Auto) Urine Creatinine 08/16/18 08/16/18 08/16/18 11:06 14:05 18:04 WBC RBC 2.82 L Hgb 9.2 L Hct 28.8 L MCV 102 H MCH 33 H MCHC RDW 16.4 H Lymph % (Auto) 3.8 L [place] % (Auto) Lymph # 0.4 L [place] # Seg Neutrophils % 89.5 H Seg Neuts % (Manual) Lymphocytes % (Manual) Monocytes % (Manual) Nucleated RBC % Seg Neutrophils # 9.1 H Seg Neutrophils # Man Lymphocytes # (Manual) Monocytes # (Manual) PT INR APTT D-Dimer Heparin Anti-Xa Level POC ABG pH POC ABG pCO2 POC ABG pO2 Sodium Potassium Chloride Carbon Dioxide BUN Creatinine Glucose POC Glucose 139 H 144 H Lactic Acid Calcium Phosphorus Total Bilirubin C-Reactive Protein NT-Pro-B Natriuret Pep Total Protein Albumin Urine WBC (Auto) Urine Creatinine 08/16/18 08/17/18 08/17/18 21:50 03:51 04:59 WBC RBC Hgb Hct MCV MCH MCHC RDW Lymph % (Auto) [place] % (Auto) Lymph # [place] # Seg Neutrophils % Seg Neuts % (Manual) Lymphocytes % (Manual) Monocytes % (Manual) Nucleated RBC % Seg Neutrophils # Seg Neutrophils # Man Lymphocytes # (Manual) Monocytes # (Manual) PT INR APTT D-Dimer Heparin Anti-Xa Level POC ABG pH POC ABG pCO2 POC ABG pO2 Sodium Potassium Chloride Carbon Dioxide BUN Creatinine 0.5 L Glucose 134 H POC Glucose 147 H 135 H Lactic Acid Calcium Phosphorus Total Bilirubin C-Reactive Protein NT-Pro-B Natriuret Pep Total Protein Albumin Urine WBC (Auto) Urine Creatinine 08/17/18 08/17/18 08/17/18 12:07 18:04 21:38 WBC RBC Hgb Hct MCV MCH MCHC RDW Lymph % (Auto) [place] % (Auto) Lymph # [place] # Seg Neutrophils % Seg Neuts % (Manual) Lymphocytes % (Manual) Monocytes % (Manual) Nucleated RBC % Seg Neutrophils # Seg Neutrophils # Man Lymphocytes # (Manual) Monocytes # (Manual) PT INR APTT D-Dimer Heparin Anti-Xa Level POC ABG pH POC ABG pCO2 55.6 H POC ABG pO2 65 L Sodium Potassium Chloride Carbon Dioxide BUN Creatinine Glucose POC Glucose 160 H 115 H Lactic Acid Calcium Phosphorus Total Bilirubin C-Reactive Protein NT-Pro-B Natriuret Pep Total Protein Albumin Urine WBC (Auto) Urine Creatinine 08/17/18 08/18/18 08/18/18 21:47 01:42 05:42 WBC RBC Hgb Hct MCV MCH MCHC RDW Lymph % (Auto) [place] % (Auto) Lymph # [place] # Seg Neutrophils % Seg Neuts % (Manual) Lymphocytes % (Manual) Monocytes % (Manual) Nucleated RBC % Seg Neutrophils # Seg Neutrophils # Man Lymphocytes # (Manual) Monocytes # (Manual) PT INR APTT D-Dimer Heparin Anti-Xa Level POC ABG pH POC ABG pCO2 POC ABG pO2 Sodium Potassium Chloride Carbon Dioxide BUN Creatinine Glucose POC Glucose 110 H 124 H 127 H Lactic Acid Calcium Phosphorus Total Bilirubin C-Reactive Protein NT-Pro-B Natriuret Pep Total Protein Albumin Urine WBC (Auto) Urine Creatinine Chest x-ray: image reviewed Allied health notes reviewed: RT
[2018-08-18] MEDS: PULMICORT IH SCH ×2 (09:57→20:53)
[2018-08-18] MEDS: BROVANA NEBU IH SCH ×2 (09:58→20:53)
--- NOTE | 2018-08-18 16:44 | Progress Note ---
Assessment and Plan Cultures: 07/27/2018 tracheal aspirate culture: Pseudomonas aeruginosa, MSSA 07/28/2018 blood culture: 4 out of 4 bottles positive for Streptococcus anginosus 07/28/2018 fungal blood culture: In progress but no growth thus far 07/29/2018 urine culture: No growth 08/01/2018 blood culture: negative thus far 08/11/2018 blood culture: in process 08/11/2018 urine culture: no growth 08/15/2018 sputum culture: Staph aureus, E.coli, another GNR pending A/P: 73-year-old male with COPD, peripheral vascular disease, hypertension, hyperlipidemia, seizure disorder admitted with: 1) New sepsis, fever with leucocytosis secondary to pneumonia: Responding well to IV Cefepime. Follow up final sputum cultures, growing E.coli, another GNR and Staph. 2) Streptococcus anginosus bacteremia: 4/4 bottles, REGAN was negative. completed treatment. 3) Acute respiratory failure secondary to congestive heart failure and pneumonia: now s/p trach and PEG. 4) CARLEE, present on admission, now resolved. Recs: Continue IV Cefepime ordered CBC for AM monitor fever f/u sputum culture Will follow. Rhea Ro MD [facility] C: [phone] O: [phone] F: [phone] Subjective Date of service: 08/18/18 Principal diagnosis: Acute hypoxemic respiratory failure; A-fib with RVR; Possible CHF; H/O DVT Interval history: No fever. Feels well. Breathing slowly improving. Denies any complains. trach + Objective - Exam Narrative Exam: Physical Exam: Constitutional: awake, communicative, comfortable, no distress Head, Ears, Nose: Normocephalic, atraumatic. External ears, nose normal Eyes: Conjunctivae/corneas clear. No icterus. No ptosis. Neck: trach + Oral:no thrush, no ulcers Cardiovascular: S1, S2 normal Respiratory: air entry good bilaterally, no crackles GI: Soft, bowel sounds normal. No peritoneal signs. PEG tube + Musculoskeletal: no pedal edema, no cyanosis. Skin: No rash or abscess Hem/Lymphatic: No palpable cervical or supraclavicular nodes. No lymphangitis Psych: calm Neurological: awake, able to communicate, follow commands - Constitutional Vitals: Vital Signs Temp Pulse Resp BP Pulse Ox 98 F 86 17 117/63 98 08/18/18 12:00 08/18/18 16:00 08/18/18 16:00 08/18/18 16:00 08/18/18 16:00 Temperature -Last 24 Hours Temperature 98 F Temperature 98 F Temperature 98.8 F Temperature 98.6 F Temperature 98.7 F - Labs CBC & Chem 7: 08/16/18 11:06 08/17/18 03:51 Labs: Abnormal lab results 08/17/18 08/17/18 08/17/18 Range/Units 18:04 21:38 21:47 POC ABG pCO2 55.6 H (35-45) POC ABG pO2 65 L (80-105) POC Glucose 115 H 110 H (70-105) 08/18/18 08/18/18 08/18/18 Range/Units 01:42 05:42 09:51 POC ABG pCO2 (35-45) POC ABG pO2 (80-105) POC Glucose 124 H 127 H 162 H (70-105) 08/18/18 Range/Units 14:37 POC ABG pCO2 (35-45) POC ABG pO2 (80-105) POC Glucose 130 H (70-105)
[2018-08-18] MEDS: LANTUS SUB-Q SCH (21:08)
[2018-08-19] MEDS: TYLENOL FEEDTUBE PRN ×2 (00:49→14:45)
[2018-08-19] MEDS: MAXIPIME/NS 2 GM/100 ML 2 GM/100 ML BAG IV SCH ×3 (05:01→21:51)
[2018-08-19 05:42] LABS: Hematocrit 28.6 % (35.5-45.6); Hemoglobin 9.4 gm/dl (11.8-15.2); Mean Corpuscular HGB Conc 33 % (32-34); Mean Corpuscular Volume 100 fl (84-94); Platelet Count 301 K/mm3 (140-440); Red Blood Count 2.86 M/mm3 (3.65-5.03); Red Cell Distribution Width 16.6 % (13.2-15.2)
[2018-08-19] MEDS: HumaLOG SUB-Q SCH ×3 (05:43→21:52)
[2018-08-19 06:04] LABS: BUN/Creatinine Ratio 30; Blood Urea Nitrogen 12 mg/dL (9-20); Hemolysis Index 1
[2018-08-19] MEDS: BROVANA NEBU IH SCH ×3 (08:23→21:42)
[2018-08-19] MEDS: PULMICORT IH SCH ×3 (08:24→21:41)
--- NOTE | 2018-08-19 08:59 | Progress Note ---
Assessment and Plan Acute hypoxemic respiratory failure s/p trachesotomy Atrial fibrillation with rapid ventricular response, now sinus. 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 Elevated D-dimer. Leukocytosis Hematuria, resolved. Sepsis Chronic obstructive lung disease-acute exacerbation. Hypertension. Peripheral vascular disease. Mixed acidosis, respiratory and metabolic. Acute kidney injury. Lactic acidosis. Elevated BNP level of 3913. - Continue ATP trials as tolerated, per protocol -Trach care, airway clearance, secretion management -complete antibiotics per ID service - continue enteric nutrition as tolerated - continue supplemental oxygen to keep sats > 90% - aspiration precautions - continue bronchodilators with pulmonary hygiene per RT -Therapeutic anticoagulation -Mobility for pressure ulcer prevention Evaluation for LTACH for weaning and low level rehab Updated girlfriend FULL CODE CONDITION:FAIR PROGNOSIS: FAIR Subjective Date of service: 08/19/18 Principal diagnosis: Acute hypoxemic respiratory failure; A-fib with RVR; Pos sible CHF; H/O DVT Interval history: Patient is seen today for: Acute hypoxemic respiratory failure s/p tracheostomy ; Atrial fibrillation with RVR; Possible congestive heart failure with an acute exacerbation; History of deep venous thrombosis; Elevated D-dimer. Seen and examined at bedside; 24hour events reviewed; vitals, labs, medications, chart notes reviewed; nursing and respiratory care staff consulted; no adverse overnight events reported to me;;currently in sinus rhythm; no emesis or overt aspiration and tolerating tube feeds; tolerating ATP, tolerating PT Objective Vital Signs - 12hr 08/18/18 08/18/18 08/18/18 21:00 21:01 21:03 Temperature Pulse Rate 87 84 Pulse Rate [ 84 Bilateral] Pulse Rate [ From Monitor] Respiratory 21 Rate Respiratory 32 H Rate [Bilateral ] Blood Pressure 131/78 131/78 O2 Sat by Pulse 93 96 Oximetry O2 Sat by Pulse 96 Oximetry [ Assessment] 08/18/18 08/18/18 08/18/18 22:00 23:00 23:44 Temperature Pulse Rate 90 88 87 Pulse Rate [ Bilateral] Pulse Rate [ From Monitor] Respiratory 32 H 35 H 42 H Rate Respiratory Rate [Bilateral ] Blood Pressure 120/59 117/63 117/63 O2 Sat by Pulse 70 L 92 94 Oximetry O2 Sat by Pulse Oximetry [ Assessment] 08/19/18 08/19/18 08/19/18 00:00 00:09 00:15 Temperature 98.7 F Pulse Rate 89 96 H Pulse Rate [ Bilateral] Pulse Rate [ 81 From Monitor] Respiratory 22 Rate Respiratory Rate [Bilateral ] Blood Pressure 124/63 O2 Sat by Pulse 96 93 Oximetry O2 Sat by Pulse Oximetry [ Assessment] 08/19/18 08/19/18 08/19/18 01:00 02:00 03:00 Temperature Pulse Rate 88 85 82 Pulse Rate [ Bilateral] Pulse Rate [ From Monitor] Respiratory 24 29 H 35 H Rate Respiratory Rate [Bilateral ] Blood Pressure 123/58 121/65 127/60 O2 Sat by Pulse 94 95 95 Oximetry O2 Sat by Pulse Oximetry [ Assessment] 08/19/18 08/19/18 08/19/18 04:00 04:17 05:00 Temperature 98.8 F Pulse Rate 81 78 83 Pulse Rate [ Bilateral] Pulse Rate [ 78 From Monitor] Respiratory 24 15 Rate Respiratory Rate [Bilateral ] Blood Pressure 136/65 136/65 O2 Sat by Pulse 96 93 Oximetry O2 Sat by Pulse Oximetry [ Assessment] 08/19/18 08/19/18 08/19/18 06:00 07:00 08:00 Temperature 98.9 F Pulse Rate 81 79 83 Pulse Rate [ Bilateral] Pulse Rate [ From Monitor] Respiratory 25 H 33 H 36 H Rate Respiratory Rate [Bilateral ] Blood Pressure 137/64 130/63 130/63 O2 Sat by Pulse 95 93 92 Oximetry O2 Sat by Pulse Oximetry [ Assessment] 08/19/18 08/19/18 08:12 08:27 Temperature Pulse Rate Pulse Rate [ 86 Bilateral] Pulse Rate [ From Monitor] Respiratory Rate Respiratory 29 H Rate [Bilateral ] Blood Pressure O2 Sat by Pulse 94 Oximetry O2 Sat by Pulse Oximetry [ Assessment] Constitutional: appears uncomfortable, other (elderly looking CM, normocephalic and atraumatic with normal respiratory effort) Eyes: non-icteric ENT: oropharynx moist, other (s/p tracheosomy) Neck: supple, no lymphadenopathy, no JVD, other (No thyromegaly) Effort: mildly labored Ascultation: Bilateral: diminished breath sounds, rhonchi Percussion: Bilateral: not dull Cardiovascular: regular rate and rhythm, irregular rhythm, other (+ systolic murmur) Gastrointestinal: hypoactive bowel sounds, soft, non-tender, non-distended, other (No palpable HSM, PEG in place) Integumentary: rash, other (upper extremity edema) Extremities: no cyanosis, pink and warm, pulses normal, no ischemia or petechiae Neurologic: normal mental status, non-focal exam (grossly), pupils equal and round, other (moves all extemities, obeys commands) Psychiatric: mood appropriate, affect normal CBC and BMP: 08/19/18 04:55 08/19/18 04:55 ABG, PT/INR, D-dimer: ABG POC ABG pH 7.370 (7.35-7.45) 08/19/18 05:16 POC ABG pCO2 57.5 (35-45) H 08/19/18 05:16 POC ABG pO2 65 (80-105) L 08/19/18 05:16 POC ABG HCO3 33.2 08/19/18 05:16 POC ABG Total CO2 35 08/19/18 05:16 POC ABG O2 Sat 91 08/19/18 05:16 PT/INR, D-dimer PT 13.4 Sec. (12.2-14.9) 08/07/18 15:08 INR 0.98 (0.87-1.13) 08/07/18 15:08 D-Dimer 798.17 ng/mlDDU (0-234) H 07/27/18 15:52 Abnormal lab findings: Abnormal Labs 07/27/18 07/27/18 07/27/18 12:59 12:59 12:59 WBC 15.8 H RBC Hgb Hct MCV 104 H MCH 34 H MCHC RDW 16.3 H Lymph % (Auto) [place] % (Auto) Lymph # [place] # Seg Neutrophils % Seg Neuts % (Manual) 88.0 H Lymphocytes % (Manual) 3.0 L Monocytes % (Manual) Nucleated RBC % Seg Neutrophils # Seg Neutrophils # Man 13.9 H Lymphocytes # (Manual) 0.5 L Monocytes # (Manual) PT 17.0 H INR 1.34 H APTT D-Dimer Heparin Anti-Xa Level POC ABG pH POC ABG pCO2 POC ABG pO2 Sodium Potassium Chloride Carbon Dioxide 21 L BUN 38 H Creatinine 1.6 H Glucose POC Glucose Lactic Acid Calcium Phosphorus Total Bilirubin 1.30 H C-Reactive Protein NT-Pro-B Natriuret Pep 3913 H Total Protein 6.2 L Albumin 3.6 L Urine WBC (Auto) Urine Creatinine 12/12/18 12/12/18 12/12/18 15:52 16:12 17:09 WBC RBC Hgb Hct MCV MCH MCHC RDW Lymph % (Auto) [place] % (Auto) Lymph # [place] # Seg Neutrophils % Seg Neuts % (Manual) Lymphocytes % (Manual) Monocytes % (Manual) Nucleated RBC % Seg Neutrophils # Seg Neutrophils # Man Lymphocytes # (Manual) Monocytes # (Manual) PT 16.0 H INR 1.24 H APTT D-Dimer 798.17 H Heparin Anti-Xa Level POC ABG pH POC ABG pCO2 POC ABG pO2 Sodium Potassium Chloride Carbon Dioxide BUN Creatinine Glucose POC Glucose Lactic Acid 5.00 H* Calcium Phosphorus Total Bilirubin C-Reactive Protein NT-Pro-B Natriuret Pep Total Protein Albumin Urine WBC (Auto) Urine Creatinine 07/27/18 07/27/18 07/27/18 17:59 18:07 21:31 WBC RBC Hgb Hct MCV MCH MCHC RDW Lymph % (Auto) [place] % (Auto) Lymph # [place] # Seg Neutrophils % Seg Neuts % (Manual) Lymphocytes % (Manual) Monocytes % (Manual) Nucleated RBC % Seg Neutrophils # Seg Neutrophils # Man Lymphocytes # (Manual) Monocytes # (Manual) PT INR APTT D-Dimer Heparin Anti-Xa Level POC ABG pH 7.344 L POC ABG pCO2 POC ABG pO2 36 L Sodium Potassium Chloride Carbon Dioxide BUN Creatinine Glucose POC Glucose Lactic Acid 5.20 H* 5.00 H* Calcium Phosphorus Total Bilirubin C-Reactive Protein NT-Pro-B Natriuret Pep Total Protein Albumin Urine WBC (Auto) Urine Creatinine 07/27/18 07/27/18 07/27/18 21:57 22:42 23:26 WBC RBC Hgb Hct MCV MCH MCHC RDW Lymph % (Auto) [place] % (Auto) Lymph # [place] # Seg Neutrophils % Seg Neuts % (Manual) Lymphocytes % (Manual) Monocytes % (Manual) Nucleated RBC % Seg Neutrophils # Seg Neutrophils # Man Lymphocytes # (Manual) Monocytes # (Manual) PT INR APTT D-Dimer Heparin Anti-Xa Level POC ABG pH 7.199 L POC ABG pCO2 62.0 H POC ABG pO2 Sodium Potassium Chloride Carbon Dioxide BUN Creatinine Glucose POC Glucose Lactic Acid 4.70 H* 5.00 H* Calcium Phosphorus Total Bilirubin C-Reactive Protein NT-Pro-B Natriuret Pep Total Protein Albumin Urine WBC (Auto) Urine Creatinine 07/28/18 07/28/18 07/28/18 00:45 05:40 05:58 WBC RBC Hgb Hct MCV MCH MCHC RDW Lymph % (Auto) [place] % (Auto) Lymph # [place] # Seg Neutrophils % Seg Neuts % (Manual) Lymphocytes % (Manual) Monocytes % (Manual) Nucleated RBC % Seg Neutrophils # Seg Neutrophils # Man Lymphocytes # (Manual) Monocytes # (Manual) PT INR APTT D-Dimer Heparin Anti-Xa Level 0.11 L POC ABG pH 7.186 L POC ABG pCO2 60.1 H POC ABG pO2 68 L Sodium Potassium Chloride Carbon Dioxide BUN Creatinine Glucose POC Glucose Lactic Acid 4.70 H* Calcium Phosphorus Total Bilirubin C-Reactive Protein NT-Pro-B Natriuret Pep Total Protein Albumin Urine WBC (Auto) Urine Creatinine 07/28/18 07/28/18 07/28/18 06:01 06:01 07:19 WBC 12.5 H RBC 3.51 L Hgb 11.5 L Hct MCV 104 H MCH 33 H MCHC RDW 16.6 H Lymph % (Auto) [place] % (Auto) Lymph # [place] # Seg Neutrophils % Seg Neuts % (Manual) Lymphocytes % (Manual) Monocytes % (Manual) Nucleated RBC % Seg Neutrophils # Seg Neutrophils # Man Lymphocytes # (Manual) Monocytes # (Manual) PT INR APTT D-Dimer Heparin Anti-Xa Level 0.14 L POC ABG pH POC ABG pCO2 POC ABG pO2 Sodium 135 L Potassium 5.1 H Chloride 95.0 L Carbon Dioxide 21 L BUN 54 H Creatinine 2.6 H D Glucose POC Glucose Lactic Acid Calcium Phosphorus Total Bilirubin C-Reactive Protein NT-Pro-B Natriuret Pep Total Protein Albumin Urine WBC (Auto) Urine Creatinine 07/28/18 07/28/18 07/28/18 07:19 09:20 11:06 WBC RBC Hgb Hct MCV MCH MCHC RDW Lymph % (Auto) [place] % (Auto) Lymph # [place] # Seg Neutrophils % Seg Neuts % (Manual) Lymphocytes % (Manual) Monocytes % (Manual) Nucleated RBC % Seg Neutrophils # Seg Neutrophils # Man Lymphocytes # (Manual) Monocytes # (Manual) PT INR APTT D-Dimer Heparin Anti-Xa Level POC ABG pH 7.266 L POC ABG pCO2 49.7 H POC ABG pO2 74 L Sodium Potassium Chloride Carbon Dioxide BUN Creatinine Glucose POC Glucose Lactic Acid 4.00 H* 3.90 H* Calcium Phosphorus Total Bilirubin C-Reactive Protein NT-Pro-B Natriuret Pep Total Protein Albumin Urine WBC (Auto) Urine Creatinine 07/28/18 07/28/18 07/28/18 15:06 20:45 23:36 WBC RBC Hgb Hct MCV MCH MCHC RDW Lymph % (Auto) [place] % (Auto) Lymph # [place] # Seg Neutrophils % Seg Neuts % (Manual) Lymphocytes % (Manual) Monocytes % (Manual) Nucleated RBC % Seg Neutrophils # Seg Neutrophils # Man Lymphocytes # (Manual) Monocytes # (Manual) PT INR APTT D-Dimer Heparin Anti-Xa Level 0.15 L POC ABG pH POC ABG pCO2 POC ABG pO2 Sodium 134 L Potassium 5.2 H Chloride Carbon Dioxide BUN 58 H Creatinine 2.1 H Glucose 110 H POC Glucose 125 H Lactic Acid Calcium Phosphorus Total Bilirubin C-Reactive Protein NT-Pro-B Natriuret Pep Total Protein Albumin Urine WBC (Auto) Urine Creatinine 07/29/18 07/29/18 07/29/18 01:12 04:21 04:21 WBC RBC 3.21 L Hgb 10.8 L Hct 33.0 L MCV 103 H MCH 34 H MCHC RDW 16.4 H Lymph % (Auto) [place] % (Auto) Lymph # [place] # Seg Neutrophils % Seg Neuts % (Manual) Lymphocytes % (Manual) 11.0 L Monocytes % (Manual) Nucleated RBC % Seg Neutrophils # Seg Neutrophils # Man Lymphocytes # (Manual) 1.0 L Monocytes # (Manual) PT INR APTT D-Dimer Heparin Anti-Xa Level 0.21 L POC ABG pH POC ABG pCO2 POC ABG pO2 Sodium Potassium Chloride Carbon Dioxide BUN 48 H Creatinine 1.6 H Glucose 166 H POC Glucose Lactic Acid Calcium Phosphorus Total Bilirubin C-Reactive Protein NT-Pro-B Natriuret Pep Total Protein Albumin Urine WBC (Auto) Urine Creatinine 07/29/18 07/29/18 07/29/18 05:19 08:16 09:24 WBC RBC Hgb Hct MCV MCH MCHC RDW Lymph % (Auto) [place] % (Auto) Lymph # [place] # Seg Neutrophils % Seg Neuts % (Manual) Lymphocytes % (Manual) Monocytes % (Manual) Nucleated RBC % Seg Neutrophils # Seg Neutrophils # Man Lymphocytes # (Manual) Monocytes # (Manual) PT INR APTT D-Dimer Heparin Anti-Xa Level 0.25 L POC ABG pH POC ABG pCO2 POC ABG pO2 Sodium Potassium Chloride Carbon Dioxide BUN Creatinine Glucose POC Glucose 181 H Lactic Acid Calcium Phosphorus Total Bilirubin C-Reactive Protein NT-Pro-B Natriuret Pep Total Protein Albumin Urine WBC (Auto) 29.0 H Urine Creatinine 07/29/18 07/29/18 07/29/18 09:24 10:00 15:03 WBC RBC Hgb Hct MCV MCH MCHC RDW Lymph % (Auto) [place] % (Auto) Lymph # [place] # Seg Neutrophils % Seg Neuts % (Manual) Lymphocytes % (Manual) Monocytes % (Manual) Nucleated RBC % Seg Neutrophils # Seg Neutrophils # Man Lymphocytes # (Manual) Monocytes # (Manual) PT INR APTT D-Dimer Heparin Anti-Xa Level POC ABG pH POC ABG pCO2 POC ABG pO2 Sodium Potassium Chloride Carbon Dioxide BUN Creatinine Glucose POC Glucose 195 H 167 H Lactic Acid Calcium Phosphorus Total Bilirubin C-Reactive Protein NT-Pro-B Natriuret Pep Total Protein Albumin Urine WBC (Auto) Urine Creatinine 72.3 H 07/29/18 07/29/18 07/30/18 17:51 21:32 01:38 WBC RBC Hgb Hct MCV MCH MCHC RDW Lymph % (Auto) [place] % (Auto) Lymph # [place] # Seg Neutrophils % Seg Neuts % (Manual) Lymphocytes % (Manual) Monocytes % (Manual) Nucleated RBC % Seg Neutrophils # Seg Neutrophils # Man Lymphocytes # (Manual) Monocytes # (Manual) PT INR APTT D-Dimer Heparin Anti-Xa Level POC ABG pH POC ABG pCO2 POC ABG pO2 Sodium Potassium Chloride Carbon Dioxide BUN Creatinine Glucose POC Glucose 167 H 217 H 194 H Lactic Acid Calcium Phosphorus Total Bilirubin C-Reactive Protein NT-Pro-B Natriuret Pep Total Protein Albumin Urine WBC (Auto) Urine Creatinine 07/30/18 07/30/18 07/30/18 03:21 05:13 10:18 WBC RBC Hgb Hct MCV MCH MCHC RDW Lymph % (Auto) [place] % (Auto) Lymph # [place] # Seg Neutrophils % Seg Neuts % (Manual) Lymphocytes % (Manual) Monocytes % (Manual) Nucleated RBC % Seg Neutrophils # Seg Neutrophils # Man Lymphocytes # (Manual) Monocytes # (Manual) PT INR APTT D-Dimer Heparin Anti-Xa Level POC ABG pH POC ABG pCO2 50.3 H POC ABG pO2 78 L Sodium Potassium Chloride Carbon Dioxide BUN 41 H Creatinine Glucose 202 H POC Glucose 151 H Lactic Acid Calcium Phosphorus Total Bilirubin C-Reactive Protein NT-Pro-B Natriuret Pep Total Protein Albumin Urine WBC (Auto) Urine Creatinine 07/30/18 07/30/18 07/30/18 11:29 16:28 18:12 WBC RBC Hgb Hct MCV MCH MCHC RDW Lymph % (Auto) [place] % (Auto) Lymph # [place] # Seg Neutrophils % Seg Neuts % (Manual) Lymphocytes % (Manual) Monocytes % (Manual) Nucleated RBC % Seg Neutrophils # Seg Neutrophils # Man Lymphocytes # (Manual) Monocytes # (Manual) PT INR APTT D-Dimer Heparin Anti-Xa Level POC ABG pH 7.326 L POC ABG pCO2 53.2 H POC ABG pO2 70 L Sodium Potassium Chloride Carbon Dioxide BUN Creatinine Glucose POC Glucose 247 H 212 H Lactic Acid Calcium Phosphorus Total Bilirubin C-Reactive Protein NT-Pro-B Natriuret Pep Total Protein Albumin Urine WBC (Auto) Urine Creatinine 07/30/18 07/30/18 07/31/18 20:08 21:52 01:59 WBC RBC Hgb Hct MCV MCH MCHC RDW Lymph % (Auto) [place] % (Auto) Lymph # [place] # Seg Neutrophils % Seg Neuts % (Manual) Lymphocytes % (Manual) Monocytes % (Manual) Nucleated RBC % Seg Neutrophils # Seg Neutrophils # Man Lymphocytes # (Manual) Monocytes # (Manual) PT INR APTT D-Dimer Heparin Anti-Xa Level POC ABG pH POC ABG pCO2 POC ABG pO2 Sodium Potassium Chloride Carbon Dioxide BUN Creatinine Glucose POC Glucose 205 H 215 H 242 H Lactic Acid Calcium Phosphorus Total Bilirubin C-Reactive Protein NT-Pro-B Natriuret Pep Total Protein Albumin Urine WBC (Auto) Urine Creatinine 07/31/18 07/31/18 07/31/18 03:14 03:14 04:55 WBC RBC Hgb 10.6 L Hct 33.2 L MCV MCH MCHC RDW Lymph % (Auto) [place] % (Auto) Lymph # [place] # Seg Neutrophils % Seg Neuts % (Manual) Lymphocytes % (Manual) Monocytes % (Manual) Nucleated RBC % Seg Neutrophils # Seg Neutrophils # Man Lymphocytes # (Manual) Monocytes # (Manual) PT INR APTT D-Dimer Heparin Anti-Xa Level POC ABG pH 7.331 L POC ABG pCO2 67.1 H POC ABG pO2 Sodium Potassium Chloride Carbon Dioxide BUN 36 H Creatinine 0.7 L Glucose 242 H POC Glucose Lactic Acid Calcium 10.3 H Phosphorus 2.30 L Total Bilirubin C-Reactive Protein NT-Pro-B Natriuret Pep Total Protein Albumin Urine WBC (Auto) Urine Creatinine 07/31/18 07/31/18 07/31/18 05:37 10:08 14:07 WBC RBC Hgb Hct MCV MCH MCHC RDW Lymph % (Auto) [place] % (Auto) Lymph # [place] # Seg Neutrophils % Seg Neuts % (Manual) Lymphocytes % (Manual) Monocytes % (Manual) Nucleated RBC % Seg Neutrophils # Seg Neutrophils # Man Lymphocytes # (Manual) Monocytes # (Manual) PT INR APTT D-Dimer Heparin Anti-Xa Level POC ABG pH POC ABG pCO2 POC ABG pO2 Sodium Potassium Chloride Carbon Dioxide BUN Creatinine Glucose POC Glucose 193 H 247 H 225 H Lactic Acid Calcium Phosphorus Total Bilirubin C-Reactive Protein NT-Pro-B Natriuret Pep Total Protein Albumin Urine WBC (Auto) Urine Creatinine 07/31/18 07/31/18 08/01/18 18:12 21:34 02:00 WBC RBC Hgb Hct MCV MCH MCHC RDW Lymph % (Auto) [place] % (Auto) Lymph # [place] # Seg Neutrophils % Seg Neuts % (Manual) Lymphocytes % (Manual) Monocytes % (Manual) Nucleated RBC % Seg Neutrophils # Seg Neutrophils # Man Lymphocytes # (Manual) Monocytes # (Manual) PT INR APTT D-Dimer Heparin Anti-Xa Level POC ABG pH POC ABG pCO2 POC ABG pO2 Sodium Potassium Chloride Carbon Dioxide BUN Creatinine Glucose POC Glucose 197 H 204 H 239 H Lactic Acid Calcium Phosphorus Total Bilirubin C-Reactive Protein NT-Pro-B Natriuret Pep Total Protein Albumin Urine WBC (Auto) Urine Creatinine 08/01/18 08/01/18 08/01/18 04:13 04:37 05:29 WBC RBC Hgb Hct MCV MCH MCHC RDW Lymph % (Auto) [place] % (Auto) Lymph # [place] # Seg Neutrophils % Seg Neuts % (Manual) Lymphocytes % (Manual) Monocytes % (Manual) Nucleated RBC % Seg Neutrophils # Seg Neutrophils # Man Lymphocytes # (Manual) Monocytes # (Manual) PT INR APTT D-Dimer Heparin Anti-Xa Level POC ABG pH 7.296 L POC ABG pCO2 81.9 H POC ABG pO2 190 H Sodium 150 H D Potassium Chloride Carbon Dioxide 37 H D BUN 37 H Creatinine 0.6 L Glucose 223 H POC Glucose 219 H Lactic Acid Calcium Phosphorus Total Bilirubin C-Reactive Protein NT-Pro-B Natriuret Pep Total Protein Albumin Urine WBC (Auto) Urine Creatinine 08/01/18 08/01/18 08/01/18 09:28 11:00 17:36 WBC RBC Hgb Hct MCV MCH MCHC RDW Lymph % (Auto) [place] % (Auto) Lymph # [place] # Seg Neutrophils % Seg Neuts % (Manual) Lymphocytes % (Manual) Monocytes % (Manual) Nucleated RBC % Seg Neutrophils # Seg Neutrophils # Man Lymphocytes # (Manual) Monocytes # (Manual) PT INR APTT D-Dimer Heparin Anti-Xa Level POC ABG pH POC ABG pCO2 61.2 H POC ABG pO2 69 L Sodium Potassium Chloride Carbon Dioxide BUN Creatinine Glucose POC Glucose 185 H 234 H Lactic Acid Calcium Phosphorus Total Bilirubin C-Reactive Protein NT-Pro-B Natriuret Pep Total Protein Albumin Urine WBC (Auto) Urine Creatinine 08/01/18 08/02/18 08/02/18 21:54 00:08 00:44 WBC RBC Hgb Hct MCV MCH MCHC RDW Lymph % (Auto) [place] % (Auto) Lymph # [place] # Seg Neutrophils % Seg Neuts % (Manual) Lymphocytes % (Manual) Monocytes % (Manual) Nucleated RBC % Seg Neutrophils # Seg Neutrophils # Man Lymphocytes # (Manual) Monocytes # (Manual) PT INR APTT D-Dimer Heparin Anti-Xa Level 0.77 H POC ABG pH POC ABG pCO2 66.4 H POC ABG pO2 64 L Sodium Potassium Chloride Carbon Dioxide BUN Creatinine Glucose POC Glucose 242 H Lactic Acid Calcium Phosphorus Total Bilirubin C-Reactive Protein NT-Pro-B Natriuret Pep Total Protein Albumin Urine WBC (Auto) Urine Creatinine 08/02/18 08/02/18 08/02/18 02:46 04:45 04:45 WBC RBC Hgb 10.7 L Hct 33.7 L MCV MCH MCHC RDW Lymph % (Auto) [place] % (Auto) Lymph # [place] # Seg Neutrophils % Seg Neuts % (Manual) Lymphocytes % (Manual) Monocytes % (Manual) Nucleated RBC % Seg Neutrophils # Seg Neutrophils # Man Lymphocytes # (Manual) Monocytes # (Manual) PT INR APTT D-Dimer Heparin Anti-Xa Level POC ABG pH POC ABG pCO2 POC ABG pO2 Sodium 152 H Potassium Chloride 108.1 H Carbon Dioxide 39 H BUN 38 H Creatinine 0.6 L Glucose 226 H POC Glucose 206 H Lactic Acid Calcium Phosphorus Total Bilirubin C-Reactive Protein NT-Pro-B Natriuret Pep Total Protein Albumin Urine WBC (Auto) Urine Creatinine 08/02/18 08/02/18 08/02/18 05:31 09:46 14:23 WBC RBC Hgb Hct MCV MCH MCHC RDW Lymph % (Auto) [place] % (Auto) Lymph # [place] # Seg Neutrophils % Seg Neuts % (Manual) Lymphocytes % (Manual) Monocytes % (Manual) Nucleated RBC % Seg Neutrophils # Seg Neutrophils # Man Lymphocytes # (Manual) Monocytes # (Manual) PT INR APTT D-Dimer Heparin Anti-Xa Level 0.91 H POC ABG pH POC ABG pCO2 POC ABG pO2 Sodium Potassium Chloride Carbon Dioxide BUN Creatinine Glucose POC Glucose 214 H 210 H Lactic Acid Calcium Phosphorus Total Bilirubin C-Reactive Protein NT-Pro-B Natriuret Pep Total Protein Albumin Urine WBC (Auto) Urine Creatinine 08/02/18 08/02/18 08/02/18 15:46 17:56 21:50 WBC RBC Hgb Hct MCV MCH MCHC RDW Lymph % (Auto) [place] % (Auto) Lymph # [place] # Seg Neutrophils % Seg Neuts % (Manual) Lymphocytes % (Manual) Monocytes % (Manual) Nucleated RBC % Seg Neutrophils # Seg Neutrophils # Man Lymphocytes # (Manual) Monocytes # (Manual) PT INR APTT D-Dimer Heparin Anti-Xa Level 0.99 H POC ABG pH POC ABG pCO2 POC ABG pO2 Sodium Potassium Chloride Carbon Dioxide BUN Creatinine Glucose POC Glucose 252 H 222 H Lactic Acid Calcium Phosphorus Total Bilirubin C-Reactive Protein NT-Pro-B Natriuret Pep Total Protein Albumin Urine WBC (Auto) Urine Creatinine 08/03/18 08/03/18 08/03/18 02:18 05:21 05:25 WBC RBC Hgb Hct MCV MCH MCHC RDW Lymph % (Auto) [place] % (Auto) Lymph # [place] # Seg Neutrophils % Seg Neuts % (Manual) Lymphocytes % (Manual) Monocytes % (Manual) Nucleated RBC % Seg Neutrophils # Seg Neutrophils # Man Lymphocytes # (Manual) Monocytes # (Manual) PT INR APTT D-Dimer Heparin Anti-Xa Level POC ABG pH POC ABG pCO2 POC ABG pO2 Sodium 151 H Potassium Chloride 107.3 H Carbon Dioxide 37 H BUN 42 H Creatinine 0.6 L Glucose 263 H POC Glucose 241 H 241 H Lactic Acid Calcium Phosphorus Total Bilirubin C-Reactive Protein NT-Pro-B Natriuret Pep Total Protein Albumin Urine WBC (Auto) Urine Creatinine 08/03/18 08/03/18 08/03/18 09:11 12:20 14:33 WBC RBC Hgb Hct MCV MCH MCHC RDW Lymph % (Auto) [place] % (Auto) Lymph # [place] # Seg Neutrophils % Seg Neuts % (Manual) Lymphocytes % (Manual) Monocytes % (Manual) Nucleated RBC % Seg Neutrophils # Seg Neutrophils # Man Lymphocytes # (Manual) Monocytes # (Manual) PT INR APTT D-Dimer Heparin Anti-Xa Level POC ABG pH POC ABG pCO2 POC ABG pO2 Sodium Potassium Chloride Carbon Dioxide BUN Creatinine Glucose POC Glucose 272 H 234 H 247 H Lactic Acid Calcium Phosphorus Total Bilirubin C-Reactive Protein NT-Pro-B Natriuret Pep Total Protein Albumin Urine WBC (Auto) Urine Creatinine 08/03/18 08/03/18 08/04/18 16:48 21:21 01:56 WBC RBC Hgb Hct MCV MCH MCHC RDW Lymph % (Auto) [place] % (Auto) Lymph # [place] # Seg Neutrophils % Seg Neuts % (Manual) Lymphocytes % (Manual) Monocytes % (Manual) Nucleated RBC % Seg Neutrophils # Seg Neutrophils # Man Lymphocytes # (Manual) Monocytes # (Manual) PT INR APTT D-Dimer Heparin Anti-Xa Level POC ABG pH POC ABG pCO2 POC ABG pO2 Sodium Potassium Chloride Carbon Dioxide BUN Creatinine Glucose POC Glucose 180 H 189 H Lactic Acid Calcium Phosphorus Total Bilirubin C-Reactive Protein 2.30 H NT-Pro-B Natriuret Pep Total Protein Albumin Urine WBC (Auto) Urine Creatinine 08/04/18 08/04/18 08/04/18 01:58 05:05 05:05 WBC 25.5 H RBC 3.31 L Hgb 10.8 L Hct 34.1 L MCV 103 H MCH 33 H MCHC RDW 16.0 H Lymph % (Auto) [place] % (Auto) Lymph # [place] # Seg Neutrophils % Seg Neuts % (Manual) Lymphocytes % (Manual) 8.0 L Monocytes % (Manual) Nucleated RBC % 2.0 H Seg Neutrophils # Seg Neutrophils # Man 16.3 H Lymphocytes # (Manual) Monocytes # (Manual) 1.0 H PT INR APTT D-Dimer Heparin Anti-Xa Level 0.79 H POC ABG pH POC ABG pCO2 POC ABG pO2 Sodium 148 H Potassium Chloride Carbon Dioxide 36 H BUN 35 H Creatinine 0.6 L Glucose 160 H POC Glucose Lactic Acid Calcium Phosphorus Total Bilirubin C-Reactive Protein NT-Pro-B Natriuret Pep Total Protein Albumin Urine WBC (Auto) Urine Creatinine 08/04/18 08/04/18 08/04/18 05:24 05:33 08:46 WBC RBC Hgb Hct MCV MCH MCHC RDW Lymph % (Auto) [place] % (Auto) Lymph # [place] # Seg Neutrophils % Seg Neuts % (Manual) Lymphocytes % (Manual) Monocytes % (Manual) Nucleated RBC % Seg Neutrophils # Seg Neutrophils # Man Lymphocytes # (Manual) Monocytes # (Manual) PT INR APTT D-Dimer Heparin Anti-Xa Level 0.76 H POC ABG pH POC ABG pCO2 65.7 H POC ABG pO2 63 L Sodium Potassium Chloride Carbon Dioxide BUN Creatinine Glucose POC Glucose 159 H Lactic Acid Calcium Phosphorus Total Bilirubin C-Reactive Protein NT-Pro-B Natriuret Pep Total Protein Albumin Urine WBC (Auto) Urine Creatinine 08/04/18 08/04/18 08/04/18 09:12 15:38 18:20 WBC RBC Hgb Hct MCV MCH MCHC RDW Lymph % (Auto) Mcleod % (Auto) Lymph # Mcleod # Seg Neutrophils % Seg Neuts % (Manual) Lymphocytes % (Manual) Monocytes % (Manual) Nucleated RBC % Seg Neutrophils # Seg Neutrophils # Man Lymphocytes # (Manual) Monocytes # (Manual) PT INR APTT D-Dimer Heparin Anti-Xa Level POC ABG pH POC ABG pCO2 POC ABG pO2 Sodium Potassium Chloride Carbon Dioxide BUN Creatinine Glucose POC Glucose 140 H 267 H 252 H Lactic Acid Calcium Phosphorus Total Bilirubin C-Reactive Protein NT-Pro-B Natriuret Pep Total Protein Albumin Urine WBC (Auto) Urine Creatinine 08/04/18 08/05/18 08/05/18 21:17 02:51 04:36 WBC RBC Hgb Hct MCV MCH MCHC RDW Lymph % (Auto) [place] % (Auto) Lymph # [place] # Seg Neutrophils % Seg Neuts % (Manual) Lymphocytes % (Manual) Monocytes % (Manual) Nucleated RBC % Seg Neutrophils # Seg Neutrophils # Man Lymphocytes # (Manual) Monocytes # (Manual) PT INR APTT D-Dimer Heparin Anti-Xa Level POC ABG pH POC ABG pCO2 POC ABG pO2 Sodium Potassium Chloride Carbon Dioxide BUN Creatinine Glucose POC Glucose 181 H 240 H 255 H Lactic Acid Calcium Phosphorus Total Bilirubin C-Reactive Protein NT-Pro-B Natriuret Pep Total Protein Albumin Urine WBC (Auto) Urine Creatinine 08/05/18 08/05/18 08/05/18 04:55 10:21 12:39 WBC 21.8 H RBC 3.18 L Hgb 10.3 L Hct 32.6 L MCV 103 H MCH 33 H MCHC RDW 16.3 H Lymph % (Auto) [place] % (Auto) Lymph # [place] # Seg Neutrophils % Seg Neuts % (Manual) 88.0 H Lymphocytes % (Manual) 4.0 L Monocytes % (Manual) Nucleated RBC % Seg Neutrophils # Seg Neutrophils # Man 19.2 H Lymphocytes # (Manual) 0.9 L Monocytes # (Manual) PT INR APTT D-Dimer Heparin Anti-Xa Level POC ABG pH 7.506 H POC ABG pCO2 56.0 H POC ABG pO2 63 L Sodium Potassium Chloride Carbon Dioxide BUN Creatinine Glucose POC Glucose 227 H Lactic Acid Calcium Phosphorus Total Bilirubin C-Reactive Protein NT-Pro-B Natriuret Pep Total Protein Albumin Urine WBC (Auto) Urine Creatinine 08/05/18 08/05/18 08/05/18 12:39 14:10 17:30 WBC RBC Hgb Hct MCV MCH MCHC RDW Lymph % (Auto) [place] % (Auto) Lymph # [place] # Seg Neutrophils % Seg Neuts % (Manual) Lymphocytes % (Manual) Monocytes % (Manual) Nucleated RBC % Seg Neutrophils # Seg Neutrophils # Man Lymphocytes # (Manual) Monocytes # (Manual) PT INR APTT D-Dimer Heparin Anti-Xa Level < 0.10 L POC ABG pH POC ABG pCO2 POC ABG pO2 Sodium Potassium Chloride 96.8 L Carbon Dioxide 38 H BUN 36 H Creatinine 0.6 L Glucose 218 H POC Glucose 221 H Lactic Acid Calcium Phosphorus Total Bilirubin C-Reactive Protein NT-Pro-B Natriuret Pep Total Protein Albumin Urine WBC (Auto) Urine Creatinine 08/05/18 08/05/18 08/06/18 18:32 23:32 02:26 WBC RBC Hgb Hct MCV MCH MCHC RDW Lymph % (Auto) [place] % (Auto) Lymph # [place] # Seg Neutrophils % Seg Neuts % (Manual) Lymphocytes % (Manual) Monocytes % (Manual) Nucleated RBC % Seg Neutrophils # Seg Neutrophils # Man Lymphocytes # (Manual) Monocytes # (Manual) PT INR APTT D-Dimer Heparin Anti-Xa Level POC ABG pH POC ABG pCO2 POC ABG pO2 Sodium Potassium Chloride Carbon Dioxide BUN Creatinine Glucose POC Glucose 253 H 215 H 227 H Lactic Acid Calcium Phosphorus Total Bilirubin C-Reactive Protein NT-Pro-B Natriuret Pep Total Protein Albumin Urine WBC (Auto) Urine Creatinine 08/06/18 08/06/18 08/06/18 05:17 05:17 05:32 WBC 18.9 H RBC 3.06 L Hgb 10.2 L Hct 31.3 L MCV 102 H MCH 33 H MCHC RDW 16.1 H Lymph % (Auto) [place] % (Auto) Lymph # [place] # Seg Neutrophils % Seg Neuts % (Manual) Lymphocytes % (Manual) Monocytes % (Manual) Nucleated RBC % Seg Neutrophils # Seg Neutrophils # Man Lymphocytes # (Manual) Monocytes # (Manual) PT INR APTT D-Dimer Heparin Anti-Xa Level POC ABG pH 7.468 H POC ABG pCO2 59.5 H POC ABG pO2 64 L Sodium Potassium Chloride Carbon Dioxide 37 H BUN 37 H Creatinine 0.5 L Glucose 226 H POC Glucose Lactic Acid Calcium Phosphorus Total Bilirubin C-Reactive Protein NT-Pro-B Natriuret Pep Total Protein Albumin Urine WBC (Auto) Urine Creatinine 08/06/18 08/06/18 08/06/18 10:11 15:03 17:48 WBC RBC Hgb Hct MCV MCH MCHC RDW Lymph % (Auto) [place] % (Auto) Lymph # [place] # Seg Neutrophils % Seg Neuts % (Manual) Lymphocytes % (Manual) Monocytes % (Manual) Nucleated RBC % Seg Neutrophils # Seg Neutrophils # Man Lymphocytes # (Manual) Monocytes # (Manual) PT INR APTT D-Dimer Heparin Anti-Xa Level POC ABG pH POC ABG pCO2 POC ABG pO2 Sodium Potassium Chloride Carbon Dioxide BUN Creatinine Glucose POC Glucose 207 H 229 H 188 H Lactic Acid Calcium Phosphorus Total Bilirubin C-Reactive Protein NT-Pro-B Natriuret Pep Total Protein Albumin Urine WBC (Auto) Urine Creatinine 08/06/18 08/07/18 08/07/18 22:53 01:55 05:30 WBC RBC Hgb Hct MCV MCH MCHC RDW Lymph % (Auto) [place] % (Auto) Lymph # [place] # Seg Neutrophils % Seg Neuts % (Manual) Lymphocytes % (Manual) Monocytes % (Manual) Nucleated RBC % Seg Neutrophils # Seg Neutrophils # Man Lymphocytes # (Manual) Monocytes # (Manual) PT INR APTT D-Dimer Heparin Anti-Xa Level POC ABG pH POC ABG pCO2 69.6 H POC ABG pO2 64 L Sodium Potassium Chloride Carbon Dioxide BUN Creatinine Glucose POC Glucose 146 H 143 H Lactic Acid Calcium Phosphorus Total Bilirubin C-Reactive Protein NT-Pro-B Natriuret Pep Total Protein Albumin Urine WBC (Auto) Urine Creatinine 08/07/18 08/07/18 08/07/18 09:59 14:16 15:08 WBC RBC Hgb 10.3 L Hct 32.2 L MCV MCH MCHC RDW Lymph % (Auto) [place] % (Auto) Lymph # [place] # Seg Neutrophils % Seg Neuts % (Manual) Lymphocytes % (Manual) Monocytes % (Manual) Nucleated RBC % Seg Neutrophils # Seg Neutrophils # Man Lymphocytes # (Manual) Monocytes # (Manual) PT INR APTT D-Dimer Heparin Anti-Xa Level POC ABG pH POC ABG pCO2 POC ABG pO2 Sodium Potassium Chloride Carbon Dioxide BUN Creatinine Glucose POC Glucose 188 H 223 H Lactic Acid Calcium Phosphorus Total Bilirubin C-Reactive Protein NT-Pro-B Natriuret Pep Total Protein Albumin Urine WBC (Auto) Urine Creatinine 08/07/18 08/07/18 08/07/18 15:08 17:39 22:04 WBC RBC Hgb Hct MCV MCH MCHC RDW Lymph % (Auto) [place] % (Auto) Lymph # [place] # Seg Neutrophils % Seg Neuts % (Manual) Lymphocytes % (Manual) Monocytes % (Manual) Nucleated RBC % Seg Neutrophils # Seg Neutrophils # Man Lymphocytes # (Manual) Monocytes # (Manual) PT INR APTT 23.2 L D-Dimer Heparin Anti-Xa Level POC ABG pH POC ABG pCO2 POC ABG pO2 Sodium Potassium Chloride Carbon Dioxide BUN Creatinine Glucose POC Glucose 208 H 163 H Lactic Acid Calcium Phosphorus Total Bilirubin C-Reactive Protein NT-Pro-B Natriuret Pep Total Protein Albumin Urine WBC (Auto) Urine Creatinine 08/07/18 08/08/18 08/08/18 22:30 01:57 02:09 WBC 14.6 H RBC 2.88 L Hgb 9.5 L Hct 29.9 L MCV 104 H MCH 33 H MCHC RDW 16.8 H Lymph % (Auto) [place] % (Auto) Lymph # [place] # Seg Neutrophils % Seg Neuts % (Manual) 73.0 H Lymphocytes % (Manual) 9.0 L Monocytes % (Manual) 10.0 H Nucleated RBC % Seg Neutrophils # Seg Neutrophils # Man 10.7 H Lymphocytes # (Manual) Monocytes # (Manual) 1.5 H PT INR APTT D-Dimer Heparin Anti-Xa Level 0.25 L POC ABG pH POC ABG pCO2 POC ABG pO2 Sodium Potassium Chloride Carbon Dioxide BUN Creatinine Glucose POC Glucose 120 H Lactic Acid Calcium Phosphorus Total Bilirubin C-Reactive Protein NT-Pro-B Natriuret Pep Total Protein Albumin Urine WBC (Auto) Urine Creatinine 08/08/18 08/08/18 08/08/18 02:09 04:58 05:19 WBC RBC Hgb Hct MCV MCH MCHC RDW Lymph % (Auto) [place] % (Auto) Lymph # [place] # Seg Neutrophils % Seg Neuts % (Manual) Lymphocytes % (Manual) Monocytes % (Manual) Nucleated RBC % Seg Neutrophils # Seg Neutrophils # Man Lymphocytes # (Manual) Monocytes # (Manual) PT INR APTT D-Dimer Heparin Anti-Xa Level POC ABG pH 7.461 H POC ABG pCO2 57.3 H POC ABG pO2 62 L Sodium Potassium Chloride Carbon Dioxide 39 H BUN 29 H Creatinine 0.5 L Glucose 124 H POC Glucose 139 H Lactic Acid Calcium Phosphorus Total Bilirubin C-Reactive Protein NT-Pro-B Natriuret Pep Total Protein Albumin Urine WBC (Auto) Urine Creatinine 08/08/18 08/08/18 08/08/18 10:22 14:52 16:12 WBC RBC Hgb Hct MCV MCH MCHC RDW Lymph % (Auto) [place] % (Auto) Lymph # [place] # Seg Neutrophils % Seg Neuts % (Manual) Lymphocytes % (Manual) Monocytes % (Manual) Nucleated RBC % Seg Neutrophils # Seg Neutrophils # Man Lymphocytes # (Manual) Monocytes # (Manual) PT INR APTT D-Dimer Heparin Anti-Xa Level POC ABG pH POC ABG pCO2 POC ABG pO2 Sodium Potassium Chloride Carbon Dioxide BUN Creatinine Glucose POC Glucose 169 H 149 H 136 H Lactic Acid Calcium Phosphorus Total Bilirubin C-Reactive Protein NT-Pro-B Natriuret Pep Total Protein Albumin Urine WBC (Auto) Urine Creatinine 08/09/18 08/09/18 08/09/18 02:26 03:52 03:52 WBC 15.9 H RBC 2.87 L Hgb 9.6 L Hct 30.7 L MCV 107 H MCH 34 H MCHC 31 L RDW 17.8 H Lymph % (Auto) 3.9 L [place] % (Auto) 8.1 H Lymph # 0.6 L [place] # 1.3 H Seg Neutrophils % 87.1 H Seg Neuts % (Manual) Lymphocytes % (Manual) Monocytes % (Manual) Nucleated RBC % Seg Neutrophils # 13.9 H Seg Neutrophils # Man Lymphocytes # (Manual) Monocytes # (Manual) PT INR APTT D-Dimer Heparin Anti-Xa Level 0.25 L POC ABG pH POC ABG pCO2 POC ABG pO2 Sodium Potassium Chloride Carbon Dioxide BUN Creatinine Glucose POC Glucose 126 H Lactic Acid Calcium Phosphorus Total Bilirubin C-Reactive Protein NT-Pro-B Natriuret Pep Total Protein Albumin Urine WBC (Auto) Urine Creatinine 08/09/18 08/09/18 08/09/18 03:52 05:34 06:48 WBC RBC Hgb Hct MCV MCH MCHC RDW Lymph % (Auto) [place] % (Auto) Lymph # [place] # Seg Neutrophils % Seg Neuts % (Manual) Lymphocytes % (Manual) Monocytes % (Manual) Nucleated RBC % Seg Neutrophils # Seg Neutrophils # Man Lymphocytes # (Manual) Monocytes # (Manual) PT INR APTT D-Dimer Heparin Anti-Xa Level POC ABG pH POC ABG pCO2 57.5 H POC ABG pO2 58 L Sodium Potassium Chloride Carbon Dioxide 39 H BUN 26 H Creatinine 0.5 L Glucose 128 H POC Glucose 171 H Lactic Acid Calcium Phosphorus Total Bilirubin C-Reactive Protein NT-Pro-B Natriuret Pep Total Protein Albumin Urine WBC (Auto) Urine Creatinine 08/09/18 08/09/18 08/09/18 09:28 09:36 13:44 WBC RBC Hgb Hct MCV MCH MCHC RDW Lymph % (Auto) [place] % (Auto) Lymph # [place] # Seg Neutrophils % Seg Neuts % (Manual) Lymphocytes % (Manual) Monocytes % (Manual) Nucleated RBC % Seg Neutrophils # Seg Neutrophils # Man Lymphocytes # (Manual) Monocytes # (Manual) PT INR APTT D-Dimer Heparin Anti-Xa Level 0.26 L POC ABG pH POC ABG pCO2 POC ABG pO2 Sodium Potassium Chloride Carbon Dioxide BUN Creatinine Glucose POC Glucose 183 H 184 H Lactic Acid Calcium Phosphorus Total Bilirubin C-Reactive Protein NT-Pro-B Natriuret Pep Total Protein Albumin Urine WBC (Auto) Urine Creatinine 08/09/18 08/10/18 08/10/18 17:55 04:49 05:20 WBC RBC Hgb Hct MCV MCH MCHC RDW Lymph % (Auto) [place] % (Auto) Lymph # [place] # Seg Neutrophils % Seg Neuts % (Manual) Lymphocytes % (Manual) Monocytes % (Manual) Nucleated RBC % Seg Neutrophils # Seg Neutrophils # Man Lymphocytes # (Manual) Monocytes # (Manual) PT INR APTT D-Dimer Heparin Anti-Xa Level POC ABG pH POC ABG pCO2 59.9 H POC ABG pO2 59 L Sodium Potassium Chloride Carbon Dioxide BUN Creatinine Glucose POC Glucose 148 H 59 L Lactic Acid Calcium Phosphorus Total Bilirubin C-Reactive Protein NT-Pro-B Natriuret Pep Total Protein Albumin Urine WBC (Auto) Urine Creatinine 08/10/18 08/10/18 08/10/18 05:53 17:12 21:17 WBC RBC Hgb Hct MCV MCH MCHC RDW Lymph % (Auto) [place] % (Auto) Lymph # [place] # Seg Neutrophils % Seg Neuts % (Manual) Lymphocytes % (Manual) Monocytes % (Manual) Nucleated RBC % Seg Neutrophils # Seg Neutrophils # Man Lymphocytes # (Manual) Monocytes # (Manual) PT INR APTT D-Dimer Heparin Anti-Xa Level POC ABG pH POC ABG pCO2 POC ABG pO2 Sodium Potassium Chloride Carbon Dioxide BUN Creatinine Glucose POC Glucose 128 H 110 H 109 H Lactic Acid Calcium Phosphorus Total Bilirubin C-Reactive Protein NT-Pro-B Natriuret Pep Total Protein Albumin Urine WBC (Auto) Urine Creatinine 08/11/18 08/11/18 08/11/18 00:54 02:28 04:17 WBC RBC Hgb 7.8 L Hct 24.1 L D MCV MCH MCHC RDW Lymph % (Auto) [place] % (Auto) Lymph # [place] # Seg Neutrophils % Seg Neuts % (Manual) Lymphocytes % (Manual) Monocytes % (Manual) Nucleated RBC % Seg Neutrophils # Seg Neutrophils # Man Lymphocytes # (Manual) Monocytes # (Manual) PT INR APTT D-Dimer Heparin Anti-Xa Level 0.19 L POC ABG pH POC ABG pCO2 POC ABG pO2 Sodium Potassium Chloride Carbon Dioxide BUN Creatinine Glucose POC Glucose 124 H Lactic Acid Calcium Phosphorus Total Bilirubin C-Reactive Protein NT-Pro-B Natriuret Pep Total Protein Albumin Urine WBC (Auto) Urine Creatinine 08/11/18 08/11/18 08/11/18 05:10 07:42 10:27 WBC RBC Hgb Hct MCV MCH MCHC RDW Lymph % (Auto) [place] % (Auto) Lymph # [place] # Seg Neutrophils % Seg Neuts % (Manual) Lymphocytes % (Manual) Monocytes % (Manual) Nucleated RBC % Seg Neutrophils # Seg Neutrophils # Man Lymphocytes # (Manual) Monocytes # (Manual) PT INR APTT D-Dimer Heparin Anti-Xa Level 0.20 L POC ABG pH POC ABG pCO2 POC ABG pO2 Sodium Potassium Chloride Carbon Dioxide BUN Creatinine Glucose POC Glucose 150 H 156 H Lactic Acid Calcium Phosphorus Total Bilirubin C-Reactive Protein NT-Pro-B Natriuret Pep Total Protein Albumin Urine WBC (Auto) Urine Creatinine 08/11/18 08/11/18 08/11/18 13:54 15:06 18:13 WBC RBC Hgb Hct MCV MCH MCHC RDW Lymph % (Auto) [place] % (Auto) Lymph # [place] # Seg Neutrophils % Seg Neuts % (Manual) Lymphocytes % (Manual) Monocytes % (Manual) Nucleated RBC % Seg Neutrophils # Seg Neutrophils # Man Lymphocytes # (Manual) Monocytes # (Manual) PT INR APTT D-Dimer Heparin Anti-Xa Level POC ABG pH 7.471 H POC ABG pCO2 45.5 H POC ABG pO2 79 L Sodium Potassium Chloride Carbon Dioxide BUN Creatinine Glucose POC Glucose 177 H 143 H Lactic Acid Calcium Phosphorus Total Bilirubin C-Reactive Protein NT-Pro-B Natriuret Pep Total Protein Albumin Urine WBC (Auto) Urine Creatinine 08/11/18 08/11/18 08/11/18 18:33 21:22 Unknown WBC RBC Hgb Hct MCV MCH MCHC RDW Lymph % (Auto) [place] % (Auto) Lymph # [place] # Seg Neutrophils % Seg Neuts % (Manual) Lymphocytes % (Manual) Monocytes % (Manual) Nucleated RBC % Seg Neutrophils # Seg Neutrophils # Man Lymphocytes # (Manual) Monocytes # (Manual) PT INR APTT D-Dimer Heparin Anti-Xa Level 0.29 L POC ABG pH POC ABG pCO2 POC ABG pO2 Sodium 136 L Potassium Chloride 96.5 L Carbon Dioxide 32 H D BUN Creatinine 0.5 L Glucose 186 H POC Glucose 151 H Lactic Acid Calcium Phosphorus Total Bilirubin C-Reactive Protein NT-Pro-B Natriuret Pep Total Protein Albumin Urine WBC (Auto) Urine Creatinine 08/11/18 08/12/18 08/12/18 Unknown 02:09 05:29 WBC 12.1 H RBC 2.50 L Hgb 8.2 L Hct 25.7 L MCV 103 H MCH 33 H MCHC RDW 17.0 H Lymph % (Auto) 5.1 L [place] % (Auto) 9.5 H Lymph # 0.6 L [place] # 1.2 H Seg Neutrophils % 84.8 H Seg Neuts % (Manual) Lymphocytes % (Manual) Monocytes % (Manual) Nucleated RBC % Seg Neutrophils # 10.3 H Seg Neutrophils # Man Lymphocytes # (Manual) Monocytes # (Manual) PT INR APTT D-Dimer Heparin Anti-Xa Level POC ABG pH POC ABG pCO2 POC ABG pO2 Sodium Potassium Chloride Carbon Dioxide BUN Creatinine Glucose POC Glucose 159 H 136 H Lactic Acid Calcium Phosphorus Total Bilirubin C-Reactive Protein NT-Pro-B Natriuret Pep Total Protein Albumin Urine WBC (Auto) Urine Creatinine 08/12/18 08/12/18 08/12/18 07:33 09:59 13:59 WBC RBC Hgb Hct MCV MCH MCHC RDW Lymph % (Auto) [place] % (Auto) Lymph # [place] # Seg Neutrophils % Seg Neuts % (Manual) Lymphocytes % (Manual) Monocytes % (Manual) Nucleated RBC % Seg Neutrophils # Seg Neutrophils # Man Lymphocytes # (Manual) Monocytes # (Manual) PT INR APTT D-Dimer Heparin Anti-Xa Level POC ABG pH POC ABG pCO2 POC ABG pO2 Sodium Potassium Chloride Carbon Dioxide BUN Creatinine Glucose POC Glucose 138 H 157 H 167 H Lactic Acid Calcium Phosphorus Total Bilirubin C-Reactive Protein NT-Pro-B Natriuret Pep Total Protein Albumin Urine WBC (Auto) Urine Creatinine 08/12/18 08/12/18 08/12/18 14:31 14:56 17:39 WBC RBC Hgb Hct MCV MCH MCHC RDW Lymph % (Auto) [place] % (Auto) Lymph # [place] # Seg Neutrophils % Seg Neuts % (Manual) Lymphocytes % (Manual) Monocytes % (Manual) Nucleated RBC % Seg Neutrophils # Seg Neutrophils # Man Lymphocytes # (Manual) Monocytes # (Manual) PT INR APTT D-Dimer Heparin Anti-Xa Level 1.18 H POC ABG pH 7.466 H POC ABG pCO2 POC ABG pO2 58 L Sodium Potassium Chloride Carbon Dioxide BUN Creatinine Glucose POC Glucose 168 H Lactic Acid Calcium Phosphorus Total Bilirubin C-Reactive Protein NT-Pro-B Natriuret Pep Total Protein Albumin Urine WBC (Auto) Urine Creatinine 08/12/18 08/13/18 08/13/18 21:38 02:17 05:20 WBC RBC Hgb 8.0 L Hct 24.5 L MCV MCH MCHC RDW Lymph % (Auto) [place] % (Auto) Lymph # [place] # Seg Neutrophils % Seg Neuts % (Manual) Lymphocytes % (Manual) Monocytes % (Manual) Nucleated RBC % Seg Neutrophils # Seg Neutrophils # Man Lymphocytes # (Manual) Monocytes # (Manual) PT INR APTT D-Dimer Heparin Anti-Xa Level POC ABG pH POC ABG pCO2 POC ABG pO2 Sodium Potassium Chloride Carbon Dioxide BUN Creatinine Glucose POC Glucose 168 H 157 H Lactic Acid Calcium Phosphorus Total Bilirubin C-Reactive Protein NT-Pro-B Natriuret Pep Total Protein Albumin Urine WBC (Auto) Urine Creatinine 08/13/18 08/13/18 08/13/18 09:28 10:07 14:09 WBC RBC Hgb Hct MCV MCH MCHC RDW Lymph % (Auto) [place] % (Auto) Lymph # [place] # Seg Neutrophils % Seg Neuts % (Manual) Lymphocytes % (Manual) Monocytes % (Manual) Nucleated RBC % Seg Neutrophils # Seg Neutrophils # Man Lymphocytes # (Manual) Monocytes # (Manual) PT INR APTT D-Dimer Heparin Anti-Xa Level POC ABG pH 7.453 H POC ABG pCO2 47.5 H POC ABG pO2 Sodium Potassium Chloride Carbon Dioxide BUN Creatinine Glucose POC Glucose 177 H 178 H Lactic Acid Calcium Phosphorus Total Bilirubin C-Reactive Protein NT-Pro-B Natriuret Pep Total Protein Albumin Urine WBC (Auto) Urine Creatinine 08/13/18 08/13/18 08/14/18 17:33 21:28 01:58 WBC RBC Hgb Hct MCV MCH MCHC RDW Lymph % (Auto) [place] % (Auto) Lymph # [place] # Seg Neutrophils % Seg Neuts % (Manual) Lymphocytes % (Manual) Monocytes % (Manual) Nucleated RBC % Seg Neutrophils # Seg Neutrophils # Man Lymphocytes # (Manual) Monocytes # (Manual) PT INR APTT D-Dimer Heparin Anti-Xa Level POC ABG pH POC ABG pCO2 POC ABG pO2 Sodium Potassium Chloride Carbon Dioxide BUN Creatinine Glucose POC Glucose 130 H 145 H 161 H Lactic Acid Calcium Phosphorus Total Bilirubin C-Reactive Protein NT-Pro-B Natriuret Pep Total Protein Albumin Urine WBC (Auto) Urine Creatinine 08/14/18 08/14/18 08/14/18 05:22 06:10 09:59 WBC RBC Hgb Hct MCV MCH MCHC RDW Lymph % (Auto) [place] % (Auto) Lymph # [place] # Seg Neutrophils % Seg Neuts % (Manual) Lymphocytes % (Manual) Monocytes % (Manual) Nucleated RBC % Seg Neutrophils # Seg Neutrophils # Man Lymphocytes # (Manual) Monocytes # (Manual) PT INR APTT D-Dimer Heparin Anti-Xa Level POC ABG pH POC ABG pCO2 POC ABG pO2 Sodium Potassium Chloride Carbon Dioxide BUN Creatinine 0.5 L Glucose 125 H POC Glucose 117 H 107 H Lactic Acid Calcium Phosphorus Total Bilirubin C-Reactive Protein NT-Pro-B Natriuret Pep Total Protein Albumin Urine WBC (Auto) Urine Creatinine 08/14/18 08/14/18 08/14/18 14:04 17:49 21:27 WBC RBC Hgb Hct MCV MCH MCHC RDW Lymph % (Auto) [place] % (Auto) Lymph # [place] # Seg Neutrophils % Seg Neuts % (Manual) Lymphocytes % (Manual) Monocytes % (Manual) Nucleated RBC % Seg Neutrophils # Seg Neutrophils # Man Lymphocytes # (Manual) Monocytes # (Manual) PT INR APTT D-Dimer Heparin Anti-Xa Level POC ABG pH POC ABG pCO2 POC ABG pO2 Sodium Potassium Chloride Carbon Dioxide BUN Creatinine Glucose POC Glucose 137 H 150 H 149 H Lactic Acid Calcium Phosphorus Total Bilirubin C-Reactive Protein NT-Pro-B Natriuret Pep Total Protein Albumin Urine WBC (Auto) Urine Creatinine 08/14/18 08/15/18 08/15/18 21:55 01:50 03:12 WBC 13.3 H RBC 2.79 L Hgb 9.3 L 8.4 L Hct 28.6 L 25.7 L MCV 102 H MCH 33 H MCHC RDW 16.6 H Lymph % (Auto) [place] % (Auto) Lymph # [place] # Seg Neutrophils % Seg Neuts % (Manual) Lymphocytes % (Manual) Monocytes % (Manual) Nucleated RBC % Seg Neutrophils # Seg Neutrophils # Man Lymphocytes # (Manual) Monocytes # (Manual) PT INR APTT D-Dimer Heparin Anti-Xa Level POC ABG pH POC ABG pCO2 POC ABG pO2 Sodium Potassium Chloride Carbon Dioxide BUN Creatinine Glucose POC Glucose 186 H Lactic Acid Calcium Phosphorus Total Bilirubin C-Reactive Protein NT-Pro-B Natriuret Pep Total Protein Albumin Urine WBC (Auto) Urine Creatinine 08/15/18 08/15/18 08/15/18 09:55 11:45 13:47 WBC RBC 2.38 L Hgb 8.0 L Hct 24.5 L MCV 103 H MCH 34 H MCHC RDW 16.8 H Lymph % (Auto) 4.9 L [place] % (Auto) Lymph # 0.5 L [place] # Seg Neutrophils % 88.1 H Seg Neuts % (Manual) Lymphocytes % (Manual) Monocytes % (Manual) Nucleated RBC % Seg Neutrophils # 9.6 H Seg Neutrophils # Man Lymphocytes # (Manual) Monocytes # (Manual) PT INR APTT D-Dimer Heparin Anti-Xa Level POC ABG pH POC ABG pCO2 POC ABG pO2 Sodium Potassium Chloride Carbon Dioxide BUN Creatinine Glucose POC Glucose 133 H 142 H Lactic Acid Calcium Phosphorus Total Bilirubin C-Reactive Protein NT-Pro-B Natriuret Pep Total Protein Albumin Urine WBC (Auto) Urine Creatinine 08/15/18 08/15/18 08/16/18 17:54 21:58 02:20 WBC RBC Hgb Hct MCV MCH MCHC RDW Lymph % (Auto) [place] % (Auto) Lymph # [place] # Seg Neutrophils % Seg Neuts % (Manual) Lymphocytes % (Manual) Monocytes % (Manual) Nucleated RBC % Seg Neutrophils # Seg Neutrophils # Man Lymphocytes # (Manual) Monocytes # (Manual) PT INR APTT D-Dimer Heparin Anti-Xa Level POC ABG pH POC ABG pCO2 POC ABG pO2 Sodium Potassium Chloride Carbon Dioxide BUN Creatinine Glucose POC Glucose 131 H 157 H 108 H Lactic Acid Calcium Phosphorus Total Bilirubin C-Reactive Protein NT-Pro-B Natriuret Pep Total Protein Albumin Urine WBC (Auto) Urine Creatinine 08/16/18 08/16/18 08/16/18 05:16 10:20 10:23 WBC RBC Hgb Hct MCV MCH MCHC RDW Lymph % (Auto) [place] % (Auto) Lymph # [place] # Seg Neutrophils % Seg Neuts % (Manual) Lymphocytes % (Manual) Monocytes % (Manual) Nucleated RBC % Seg Neutrophils # Seg Neutrophils # Man Lymphocytes # (Manual) Monocytes # (Manual) PT INR APTT D-Dimer Heparin Anti-Xa Level POC ABG pH POC ABG pCO2 POC ABG pO2 63 L Sodium Potassium Chloride Carbon Dioxide BUN Creatinine Glucose POC Glucose 115 H 146 H Lactic Acid Calcium Phosphorus Total Bilirubin C-Reactive Protein NT-Pro-B Natriuret Pep Total Protein Albumin Urine WBC (Auto) Urine Creatinine 08/16/18 08/16/18 08/16/18 11:06 14:05 18:04 WBC RBC 2.82 L Hgb 9.2 L Hct 28.8 L MCV 102 H MCH 33 H MCHC RDW 16.4 H Lymph % (Auto) 3.8 L [place] % (Auto) Lymph # 0.4 L [place] # Seg Neutrophils % 89.5 H Seg Neuts % (Manual) Lymphocytes % (Manual) Monocytes % (Manual) Nucleated RBC % Seg Neutrophils # 9.1 H Seg Neutrophils # Man Lymphocytes # (Manual) Monocytes # (Manual) PT INR APTT D-Dimer Heparin Anti-Xa Level POC ABG pH POC ABG pCO2 POC ABG pO2 Sodium Potassium Chloride Carbon Dioxide BUN Creatinine Glucose POC Glucose 139 H 144 H Lactic Acid Calcium Phosphorus Total Bilirubin C-Reactive Protein NT-Pro-B Natriuret Pep Total Protein Albumin Urine WBC (Auto) Urine Creatinine 08/16/18 08/17/18 08/17/18 21:50 03:51 04:59 WBC RBC Hgb Hct MCV MCH MCHC RDW Lymph % (Auto) [place] % (Auto) Lymph # [place] # Seg Neutrophils % Seg Neuts % (Manual) Lymphocytes % (Manual) Monocytes % (Manual) Nucleated RBC % Seg Neutrophils # Seg Neutrophils # Man Lymphocytes # (Manual) Monocytes # (Manual) PT INR APTT D-Dimer Heparin Anti-Xa Level POC ABG pH POC ABG pCO2 POC ABG pO2 Sodium Potassium Chloride Carbon Dioxide BUN Creatinine 0.5 L Glucose 134 H POC Glucose 147 H 135 H Lactic Acid Calcium Phosphorus Total Bilirubin C-Reactive Protein NT-Pro-B Natriuret Pep Total Protein Albumin Urine WBC (Auto) Urine Creatinine 08/17/18 08/17/18 08/17/18 12:07 18:04 21:38 WBC RBC Hgb Hct MCV MCH MCHC RDW Lymph % (Auto) [place] % (Auto) Lymph # [place] # Seg Neutrophils % Seg Neuts % (Manual) Lymphocytes % (Manual) Monocytes % (Manual) Nucleated RBC % Seg Neutrophils # Seg Neutrophils # Man Lymphocytes # (Manual) Monocytes # (Manual) PT INR APTT D-Dimer Heparin Anti-Xa Level POC ABG pH POC ABG pCO2 55.6 H POC ABG pO2 65 L Sodium Potassium Chloride Carbon Dioxide BUN Creatinine Glucose POC Glucose 160 H 115 H Lactic Acid Calcium Phosphorus Total Bilirubin C-Reactive Protein NT-Pro-B Natriuret Pep Total Protein Albumin Urine WBC (Auto) Urine Creatinine 08/17/18 08/18/18 08/18/18 21:47 01:42 05:42 WBC RBC Hgb Hct MCV MCH MCHC RDW Lymph % (Auto) [place] % (Auto) Lymph # [place] # Seg Neutrophils % Seg Neuts % (Manual) Lymphocytes % (Manual) Monocytes % (Manual) Nucleated RBC % Seg Neutrophils # Seg Neutrophils # Man Lymphocytes # (Manual) Monocytes # (Manual) PT INR APTT D-Dimer Heparin Anti-Xa Level POC ABG pH POC ABG pCO2 POC ABG pO2 Sodium Potassium Chloride Carbon Dioxide BUN Creatinine Glucose POC Glucose 110 H 124 H 127 H Lactic Acid Calcium Phosphorus Total Bilirubin C-Reactive Protein NT-Pro-B Natriuret Pep Total Protein Albumin Urine WBC (Auto) Urine Creatinine 08/18/18 08/18/18 08/18/18 09:51 14:37 21:37 WBC RBC Hgb Hct MCV MCH MCHC RDW Lymph % (Auto) [place] % (Auto) Lymph # [place]od # Seg Neutrophils % Seg Neuts % (Manual) Lymphocytes % (Manual) Monocytes % (Manual) Nucleated RBC % Seg Neutrophils # Seg Neutrophils # Man Lymphocytes # (Manual) Monocytes # (Manual) PT INR APTT D-Dimer Heparin Anti-Xa Level POC ABG pH POC ABG pCO2 POC ABG pO2 Sodium Potassium Chloride Carbon Dioxide BUN Creatinine Glucose POC Glucose 162 H 130 H 133 H Lactic Acid Calcium Phosphorus Total Bilirubin C-Reactive Protein NT-Pro-B Natriuret Pep Total Protein Albumin Urine WBC (Auto) Urine Creatinine 08/19/18 08/19/18 08/19/18 01:47 04:55 04:55 WBC RBC 2.86 L Hgb 9.4 L Hct 28.6 L MCV 100 H MCH 33 H MCHC RDW 16.6 H Lymph % (Auto) [place]od % (Auto) Lymph # [place] # Seg Neutrophils % Seg Neuts % (Manual) Lymphocytes % (Manual) Monocytes % (Manual) Nucleated RBC % Seg Neutrophils # Seg Neutrophils # Man Lymphocytes # (Manual) Monocytes # (Manual) PT INR APTT D-Dimer Heparin Anti-Xa Level POC ABG pH POC ABG pCO2 POC ABG pO2 Sodium Potassium Chloride 97.8 L Carbon Dioxide 32 H BUN Creatinine 0.4 L Glucose 116 H POC Glucose 136 H Lactic Acid Calcium Phosphorus Total Bilirubin C-Reactive Protein NT-Pro-B Natriuret Pep Total Protein Albumin Urine WBC (Auto) Urine Creatinine 08/19/18 08/19/18 05:16 05:41 WBC RBC Hgb Hct MCV MCH MCHC RDW Lymph % (Auto) [place] % (Auto) Lymph # [place] # Seg Neutrophils % Seg Neuts % (Manual) Lymphocytes % (Manual) Monocytes % (Manual) Nucleated RBC % Seg Neutrophils # Seg Neutrophils # Man Lymphocytes # (Manual) Monocytes # (Manual) PT INR APTT D-Dimer Heparin Anti-Xa Level POC ABG pH POC ABG pCO2 57.5 H POC ABG pO2 65 L Sodium Potassium Chloride Carbon Dioxide BUN Creatinine Glucose POC Glucose 119 H Lactic Acid Calcium Phosphorus Total Bilirubin C-Reactive Protein NT-Pro-B Natriuret Pep Total Protein Albumin Urine WBC (Auto) Urine Creatinine Allied health notes reviewed: RT
[2018-08-19] MEDS: PEPCID PO SCH ×2 (09:25→21:52)
[2018-08-19] MEDS: PRAVACHOL PO SCH (09:25)
[2018-08-19] MEDS: VITAMIN B-12 PO SCH (09:25)
[2018-08-19] MEDS: CORDARONE PO SCH ×2 (09:25→21:52)
[2018-08-19] MEDS: ELIQUIS PO SCH ×2 (09:25→21:52)
[2018-08-19] MEDS: SODIUM CHLORIDE FLUSH SYRINGE 10 ML IV SCH ×2 (09:26→21:53)
--- NOTE | 2018-08-19 10:56 | Progress Note ---
Assessment and Plan Assessment and plan: Sepsis. Previous Blood cultures reveal Streptococcus anginosus. New sepsis, fever with leucocytosis. ID started empiric IV Cefepime and will assess response Acute kidney injury. Etiology secondary to above. Continue to monitor creatinine. Left lower lobe pneumonia. Continue antibiotics and follow repeat chest x-ray. Sputum culture revealed Pseudomonas and MSSA Acute hypoxemic respiratory failure. Etiology secondary to above. Continue on mechanical ventilation and weaning per pulmonary. Patient is status post trach and PEG on 08/11/18. Patient tolerating CPAP this morning. Atrial fibrillation. Continue amiodarone and diltiazem. Cardiology following. REGAN negative. Cont. Eliquis Acute renal failure due to vasomotor nephropathy, Resolved. COPD exacerbation. Continue bronchodilators/nebulizers. IV steroids. Hypertension. Resume antihypertensive medications as needed. Hyperlipidemia. Peripheral vascular disease. Plan is for LTAC placement The high probability of a clinically significant, sudden or life threatening deterioration of the [respiratory] system(s) required my full and direct attention, intervention and personal management. The aggregate critical care t jovan was [31] minutes. This time is in addition to time spent performing reported procedures but includes the following: [x] Data Review and interpretation [x] Patient assessment and monitoring of vital signs [x] Documentation [x] Medication orders and management History Interval history: No new complaints no more fever Hospitalist Physical - Physical exam Narrative exam: GEN: Not in acute distress, HEENT: Normocephalic, atraumatic, Neck: supple, No JVD. Tracheostomy Lungs: Clear to auscultation, no wheeze Heart:S1 and S2 regular, no murmurs, rubs or gallop, Abd:soft, non tender, non distended, normal bowel sounds, PEG tube Ext: No edema, no clubbing or cyanosis Neuro: Opens eyes, - Constitutional Vitals: Temp Pulse Resp BP Pulse Ox 98.9 F 86 29 H 130/63 94 08/19/18 08:00 08/19/18 08:27 08/19/18 08:27 08/19/18 08:00 08/19/18 08:12 General appearance: Present: other (intubated on mechanical ventilation) Results - Labs CBC & Chem 7: 08/19/18 04:55 08/19/18 04:55 Labs: Laboratory Last Values WBC 7.8 K/mm3 (4.5-11.0) 08/19/18 04:55 RBC 2.86 M/mm3 (3.65-5.03) L 08/19/18 04:55 Hgb 9.4 gm/dl (11.8-15.2) L 08/19/18 04:55 Hct 28.6 % (35.5-45.6) L 08/19/18 04:55 MCV 100 fl (84-94) H 08/19/18 04:55 MCH 33 pg (28-32) H 08/19/18 04:55 MCHC 33 % (32-34) 08/19/18 04:55 RDW 16.6 % (13.2-15.2) H 08/19/18 04:55 Plt Count 301 K/mm3 (140-440) 08/19/18 04:55 Lymph % (Auto) 3.8 % (13.4-35.0) L 08/16/18 11:06 Stanley % (Auto) 5.7 % (0.0-7.3) 08/16/18 11:06 Eos % (Auto) 0.6 % (0.0-4.3) 08/16/18 11:06 Baso % (Auto) 0.4 % (0.0-1.8) 08/16/18 11:06 Lymph # 0.4 K/mm3 (1.2-5.4) L 08/16/18 11:06 Stanley # 0.6 K/mm3 (0.0-0.8) 08/16/18 11:06 Eos # 0.1 K/mm3 (0.0-0.4) 08/16/18 11:06 Baso # 0.0 K/mm3 (0.0-0.1) 08/16/18 11:06 Add Manual Diff Complete 08/08/18 02:09 Total Counted 100 08/08/18 02:09 Seg Neutrophils % 89.5 % (40.0-70.0) H 08/16/18 11:06 Seg Neuts % (Manual) 73.0 % (40.0-70.0) H 08/08/18 02:09 Band Neutrophils % 5.0 % 08/08/18 02:09 Lymphocytes % (Manual) 9.0 % (13.4-35.0) L 08/08/18 02:09 Reactive Lymphs % (Man) 0 % 08/08/18 02:09 Monocytes % (Manual) 10.0 % (0.0-7.3) H 08/08/18 02:09 Eosinophils % (Manual) 0 % (0.0-4.3) 08/08/18 02:09 Basophils % (Manual) 0 % (0.0-1.8) 08/08/18 02:09 Metamyelocytes % 3.0 % 08/08/18 02:09 Myelocytes % 0 % 08/08/18 02:09 Promyelocytes % 0 % 08/08/18 02:09 Blast Cells % 0 % 08/08/18 02:09 Nucleated RBC % Not Reportable 08/08/18 02:09 Seg Neutrophils # 9.1 K/mm3 (1.8-7.7) H 08/16/18 11:06 Seg Neutrophils # Man 10.7 K/mm3 (1.8-7.7) H 08/08/18 02:09 Band Neutrophils # 0.7 K/mm3 08/08/18 02:09 Lymphocytes # (Manual) 1.3 K/mm3 (1.2-5.4) 08/08/18 02:09 Abs React Lymphs (Man) 0.0 K/mm3 08/08/18 02:09 Monocytes # (Manual) 1.5 K/mm3 (0.0-0.8) H 08/08/18 02:09 Eosinophils # (Manual) 0.0 K/mm3 (0.0-0.4) 08/08/18 02:09 Basophils # (Manual) 0.0 K/mm3 (0.0-0.1) 08/08/18 02:09 Metamyelocytes # 0.4 K/mm3 08/08/18 02:09 Myelocytes # 0.0 K/mm3 08/08/18 02:09 Promyelocytes # 0.0 K/mm3 08/08/18 02:09 Blast Cells # 0.0 K/mm3 08/08/18 02:09 Pathologist Review 07/28/18 06:01 WBC Morphology Not Reportable 08/08/18 02:09 Hypersegmented Neuts Not Reportable 08/08/18 02:09 Hyposegmented Neuts Not Reportable 08/08/18 02:09 Hypogranular Neuts Not Reportable 08/08/18 02:09 Smudge Cells Not Reportable 08/08/18 02:09 Toxic Granulation Not Reportable 08/08/18 02:09 Toxic Vacuolation Not Reportable 08/08/18 02:09 Dohle Bodies Not Reportable 08/08/18 02:09 Pelger-Huet Anomaly Not Reportable 08/08/18 02:09 Janiya Rods Not Reportable 08/08/18 02:09 Platelet Estimate Appears normal 08/08/18 02:09 Clumped Platelets Not Reportable 08/08/18 02:09 Plt Clumps, EDTA Not Reportable 08/08/18 02:09 Large Platelets Not Reportable 08/08/18 02:09 Giant Platelets Not Reportable 08/08/18 02:09 Platelet Satelliting Not Reportable 08/08/18 02:09 Plt Morphology Comment Not Reportable 08/08/18 02:09 RBC Morphology Not Reportable 08/08/18 02:09 Dimorphic RBCs Not Reportable 08/08/18 02:09 Polychromasia Not Reportable 08/08/18 02:09 Hypochromasia Few 08/08/18 02:09 Poikilocytosis Not Reportable 08/08/18 02:09 Anisocytosis 1+ 08/08/18 02:09 Microcytosis Not Reportable 08/08/18 02:09 Macrocytosis Not Reportable 08/08/18 02:09 Spherocytes Not Reportable 08/08/18 02:09 Pappenheimer Bodies Not Reportable 08/08/18 02:09 Sickle Cells Not Reportable 08/08/18 02:09 Target Cells Not Reportable 08/08/18 02:09 Tear Drop Cells Not Reportable 08/08/18 02:09 Ovalocytes Not Reportable 08/08/18 02:09 Stomatocytes Few 08/08/18 02:09 Helmet Cells Not Reportable 08/08/18 02:09 Lr-[place] Bodies Not Reportable 08/08/18 02:09 [place] Rings Not Reportable 08/08/18 02:09 [place] Cells Not Reportable 08/08/18 02:09 Bite Cells Not Reportable 08/08/18 02:09 Crenated Cell Not Reportable 08/08/18 02:09 Elliptocytes Not Reportable 08/08/18 02:09 Acanthocytes (Spur) Not Reportable 08/08/18 02:09 Rouleaux Not Reportable 08/08/18 02:09 Hemoglobin C Crystals Not Reportable 08/08/18 02:09 Schistocytes Not Reportable 08/08/18 02:09 Malaria parasites Not Reportable 08/08/18 02:09 Jigar Bodies Not Reportable 08/08/18 02:09 Hem Pathologist Commnt No 08/08/18 02:09 PT 13.4 Sec. (12.2-14.9) 08/07/18 15:08 INR 0.98 (0.87-1.13) 08/07/18 15:08 APTT 23.2 Sec. (24.2-36.6) L 08/07/18 15:08 D-Dimer 798.17 ng/mlDDU (0-234) H 07/27/18 15:52 Heparin Anti-Xa Level 1.18 U.I./ml (0.3-0.7) H 08/12/18 14:56 POC ABG pH 7.370 (7.35-7.45) 08/19/18 05:16 POC ABG pCO2 57.5 (35-45) H 08/19/18 05:16 POC ABG pO2 65 (80-105) L 08/19/18 05:16 POC ABG HCO3 33.2 08/19/18 05:16 POC ABG Total CO2 35 08/19/18 05:16 POC ABG O2 Sat 91 08/19/18 05:16 POC ABG Base Excess 8 08/19/18 05:16 FiO2 40 % 08/19/18 05:16 Sodium 140 mmol/L (137-145) 08/19/18 04:55 Potassium 4.3 mmol/L (3.6-5.0) 08/19/18 04:55 Chloride 97.8 mmol/L (98-107) L 08/19/18 04:55 Carbon Dioxide 32 mmol/L (22-30) H 08/19/18 04:55 Anion Gap 15 mmol/L 08/19/18 04:55 BUN 12 mg/dL (9-20) 08/19/18 04:55 Creatinine 0.4 mg/dL (0.8-1.5) L 08/19/18 04:55 Estimated GFR > 60 ml/min 08/19/18 04:55 BUN/Creatinine Ratio 30 % 08/19/18 04:55 Glucose 116 mg/dL (75-100) H 08/19/18 04:55 POC Glucose 119 (70-105) H 08/19/18 05:41 Lactic Acid 1.30 mmol/L (0.7-2.0) 08/03/18 16:48 Calcium 9.0 mg/dL (8.4-10.2) 08/19/18 04:55 Phosphorus 3.30 mg/dL (2.5-4.5) 08/19/18 04:55 Magnesium 2.30 mg/dL (1.7-2.3) 08/19/18 04:55 Total Bilirubin 1.30 mg/dL (0.1-1.2) H 07/27/18 12:59 AST 15 units/L (5-40) 07/27/18 12:59 ALT 16 units/L (7-56) 07/27/18 12:59 Alkaline Phosphatase 62 units/L (35-129) 07/27/18 12:59 Troponin T < 0.010 ng/mL (0.00-0.029) 07/27/18 12:59 C-Reactive Protein 2.30 mg/dL (0.00-1.30) H 08/03/18 16:48 NT-Pro-B Natriuret Pep 3913 pg/mL (0-900) H 07/27/18 12:59 Total Protein 6.2 g/dL (6.3-8.2) L 07/27/18 12:59 Albumin 3.6 g/dL (3.9-5) L 07/27/18 12:59 Albumin/Globulin Ratio 1.4 % 07/27/18 12:59 Triglycerides 64 mg/dL (2-149) 08/08/18 14:02 TSH 1.180 mlU/mL (0.270-4.200) 07/27/18 15:52 Free T4 1.28 ng/dL (0.76-1.46) 07/27/18 15:52 Urine Color Yellow (Yellow) 08/11/18 12:50 Urine Turbidity Clear (Clear) 08/11/18 12:50 Urine pH 6.0 (5.0-7.0) 08/11/18 12:50 Ur Specific [place] 1.015 (1.003-1.030) 08/11/18 12:50 Urine Protein <15 mg/dl mg/dL (Negative) 08/11/18 12:50 Urine Glucose (UA) 50 mg/dL (Negative) 08/11/18 12:50 Urine Ketones Neg mg/dL (Negative) 08/11/18 12:50 Urine Blood Neg (Negative) 08/11/18 12:50 Urine Nitrite Neg (Negative) 08/11/18 12:50 Urine Bilirubin Neg (Negative) 08/11/18 12:50 Urine Urobilinogen 4.0 mg/dL (<2.0) 08/11/18 12:50 Ur Leukocyte Esterase Neg (Negative) 08/11/18 12:50 Urine WBC (Auto) 2.0 /HPF (0.0-6.0) 08/11/18 12:50 Urine RBC (Auto) 2.0 /HPF (0.0-6.0) 08/11/18 12:50 U Epithel Cells (Auto) 2.0 /HPF (0-13.0) 07/29/18 09:24 Urine Bacteria (Auto) 1+ /HPF (Negative) 08/11/18 12:50 Urine Mucus Few /HPF 08/11/18 12:50 Urine Yeast (Budding) 1+ /HPF 07/29/18 09:24 Urine Creatinine 72.3 mg/dL (0.1-20.0) H 07/29/18 09:24 Urine Sodium 12 mmol/L 07/29/18 09:24 Random Vancomycin 9.2 ug/mL (0-40.0) 07/29/18 04:21 Nutrition/Malnutrition Assess - Dietary Evaluation Nutrition/Malnutrition Findings: Nutrition Notes Start: 07/28/18 10:54 Freq: Status: Active Protocol: Document 08/16/18 10:40 OL (Rec: 08/16/18 10:42 OL [id number]) Nutrition Notes Initial or Follow up Reassessment Current Diagnoses Acute Kidney Injury COPD Sepsis Hypertension Heart Failure Respiratory Failure Other Pertinent Diagnosis Hx of Skin Cancer Current Diet Nepro at 50ml/hr Labs/Tests Reviewed Medications Reviewed Height 5 ft 8 in Weight 85.1 kg [place] Body Weight (lbs) 154.0 BMI 28.5 Subjective/Other Information Nepro infusing at goal rate of 50mL/hr, well tolerated Burn Absent Trauma Absent #1 Nutrition Diagnoses Inadequate oral intake Diagnosis Progress(for reassessment Continues documentation) Is patient on ventilator? Yes Is Patient Ambulatory and/or Out of Bed No REE-([facility]-confined to bed) 3499.564 Calculation Used for Recommendations [facility] Additional Notes protein (1.2-2g/kg): 102-170g fluid: 1mL/kcal Nutrition Intervention Change Diet Order: Continue TF Nutrition Support: Nepro at 50mL/hr 250 mL free water flush q4h or per MD. Kcal 2,160 Protein (gm) 97 Fluid (mL) 872 Goal #1 TF tolerance and rate Goal #2 Meet at least 80% of kcal needs and 80-100% of protein needs. Follow-Up By: 08/23/18 Additional Comments f/u: stable TF
--- NOTE | 2018-08-19 11:09 | Progress Note ---
Assessment and Plan Cultures: 07/27/2018 tracheal aspirate culture: Pseudomonas aeruginosa, MSSA 07/28/2018 blood culture: 4 out of 4 bottles positive for Streptococcus anginosus 07/28/2018 fungal blood culture: In progress but no growth thus far 07/29/2018 urine culture: No growth 08/01/2018 blood culture: negative thus far 08/11/2018 blood culture: in process 08/11/2018 urine culture: no growth 08/15/2018 sputum culture: Staph aureus, E.coli, another GNR pending A/P: 73-year-old male with COPD, peripheral vascular disease, hypertension, hyperlipidemia, seizure disorder admitted with: 1) New sepsis, fever with leucocytosis secondary to pneumonia: Responding well to IV Cefepime. Follow up final sputum cultures, growing E.coli, another GNR and Staph. 2) Streptococcus anginosus bacteremia: 4/4 bottles, REGAN was negative. completed treatment. 3) Acute respiratory failure secondary to congestive heart failure and pneumonia: now s/p trach and PEG. 4) CARLEE, present on admission, now resolved. Recs: Continue IV Cefepime Continue to monitor fever f/u sputum culture Subjective Date of service: 08/19/18 Principal diagnosis: Acute hypoxemic respiratory failure; A-fib with RVR; Po ssible CHF; H/O DVT Interval history: Patient seen and examined. No fevers, Sitting up in bed, at bedside. Trach +, reports no complaints. Objective - Exam Narrative Exam: Constitutional: awake, communicative, comfortable, no distress Head, Ears, Nose: Normocephalic, atraumatic. External ears, nose normal Eyes: Conjunctivae/corneas clear. No icterus. No ptosis. Neck: trach + Oral:no thrush, no ulcers Cardiovascular: S1, S2 normal Respiratory: air entry good bilaterally, no crackles GI: Soft, bowel sounds normal. No peritoneal signs. PEG tube + Musculoskeletal: no pedal edema, no cyanosis. Skin: No rash or abscess Hem/Lymphatic: No palpable cervical or supraclavicular nodes. No lymphangitis Psych: calm Neurological: awake, able to communicate, follow commands - Constitutional Vitals: Vital Signs Temp Pulse Resp BP Pulse Ox 98.9 F 86 29 H 130/63 94 08/19/18 08:00 08/19/18 08:27 08/19/18 08:27 08/19/18 08:00 08/19/18 08:12 Temperature -Last 24 Hours Temperature 98.9 F Temperature 98.8 F Temperature 98.7 F Temperature 98.8 F Temperature 98.3 F Temperature 98 F - Labs CBC & Chem 7: 08/19/18 04:55 08/19/18 04:55 Labs: Abnormal lab results 08/18/18 08/18/18 08/19/18 Range/Units 14:37 21:37 01:47 RBC (3.65-5.03) M/mm3 Hgb (11.8-15.2) gm/dl Hct (35.5-45.6) % MCV (84-94) fl MCH (28-32) pg RDW (13.2-15.2) % POC ABG pCO2 (35-45) POC ABG pO2 (80-105) Chloride (98-107) mmol/L Carbon Dioxide (22-30) mmol/L Creatinine (0.8-1.5) mg/dL Glucose (75-100) mg/dL POC Glucose 130 H 133 H 136 H (70-105) 08/19/18 08/19/18 08/19/18 Range/Units 04:55 04:55 05:16 RBC 2.86 L (3.65-5.03) M/mm3 Hgb 9.4 L (11.8-15.2) gm/dl Hct 28.6 L (35.5-45.6) % MCV 100 H (84-94) fl MCH 33 H (28-32) pg RDW 16.6 H (13.2-15.2) % POC ABG pCO2 57.5 H (35-45) POC ABG pO2 65 L (80-105) Chloride 97.8 L (98-107) mmol/L Carbon Dioxide 32 H (22-30) mmol/L Creatinine 0.4 L (0.8-1.5) mg/dL Glucose 116 H (75-100) mg/dL POC Glucose (70-105) 08/19/18 Range/Units 05:41 RBC (3.65-5.03) M/mm3 Hgb (11.8-15.2) gm/dl Hct (35.5-45.6) % MCV (84-94) fl MCH (28-32) pg RDW (13.2-15.2) % POC ABG pCO2 (35-45) POC ABG pO2 (80-105) Chloride (98-107) mmol/L Carbon Dioxide (22-30) mmol/L Creatinine (0.8-1.5) mg/dL Glucose (75-100) mg/dL POC Glucose 119 H (70-105)
[2018-08-19] MEDS: LANTUS SUB-Q SCH (21:52)
[2018-08-20] MEDS: TYLENOL FEEDTUBE PRN ×2 (02:58→22:22)
[2018-08-20] MEDS: SUBLIMAZE IV PRN (04:00)
[2018-08-20] MEDS: HumaLOG SUB-Q SCH ×3 (07:13→22:13)
[2018-08-20] MEDS: MAXIPIME/NS 2 GM/100 ML 2 GM/100 ML BAG IV SCH ×3 (07:52→22:11)
--- NOTE | 2018-08-20 08:35 | Progress Note ---
Assessment and Plan Assessment and plan: Sepsis. Previous Blood cultures reveal Streptococcus anginosus. New sepsis, fever with leucocytosis. ID started empiric IV Cefepime and will assess response Acute kidney injury. Etiology secondary to above. Continue to monitor creatinine. Left lower lobe pneumonia. Continue antibiotics and follow repeat chest x-ray. Sputum culture revealed Pseudomonas and MSSA Acute hypoxemic respiratory failure. Etiology secondary to above. Continue on mechanical ventilation and weaning per pulmonary. Patient is status post trach and PEG on 08/11/18. Atrial fibrillation. Continue Amiodarone and Diltiazem. Cardiology following. REGAN negative. Cont. Eliquis Acute renal failure due to vasomotor nephropathy, Resolved. COPD exacerbation. Continue bronchodilators/nebulizers. IV steroids. Hypertension. Resume antihypertensive medications as needed. Hyperlipidemia. Peripheral vascular disease. Plan is for LTAC placement The high probability of a clinically significant, sudden or life threatening deterioration of the [respiratory] system(s) required my full and direct attention, intervention and personal management. The aggregate critical care time was [32] minutes. This time is in addition to time spent performing reported procedures but includes the following: [x] Data Review and interpretation [x] Patient assessment and monitoring of vital signs [x] Documentation [x] Medication orders and management History Interval history: No new complaints no more fever Hospitalist Physical - Physical exam Narrative exam: GEN: Not in acute distress, HEENT: Normocephalic, atraumatic, Neck: supple, No JVD. Tracheostomy Lungs: Clear to auscultation, no wheeze Heart:S1 and S2 regular, no murmurs, rubs or gallop, Abd:soft, non tender, non distended, normal bowel sounds, PEG tube Ext: No edema, no clubbing or cyanosis Neuro: Opens eyes, - Constitutional Vitals: Temp Pulse Resp BP Pulse Ox 99 F 99 H 16 162/95 51 L 08/20/18 03:04 08/20/18 07:00 08/20/18 07:00 08/20/18 07:00 08/20/18 07:00 General appearance: Present: other (intubated on mechanical ventilation) Results - Labs CBC & Chem 7: 08/19/18 04:55 08/19/18 04:55 Labs: Laboratory Last Values WBC 7.8 K/mm3 (4.5-11.0) 08/19/18 04:55 RBC 2.86 M/mm3 (3.65-5.03) L 08/19/18 04:55 Hgb 9.4 gm/dl (11.8-15.2) L 08/19/18 04:55 Hct 28.6 % (35.5-45.6) L 08/19/18 04:55 MCV 100 fl (84-94) H 08/19/18 04:55 MCH 33 pg (28-32) H 08/19/18 04:55 MCHC 33 % (32-34) 08/19/18 04:55 RDW 16.6 % (13.2-15.2) H 08/19/18 04:55 Plt Count 301 K/mm3 (140-440) 08/19/18 04:55 Lymph % (Auto) 3.8 % (13.4-35.0) L 08/16/18 11:06 [place] % (Auto) 5.7 % (0.0-7.3) 08/16/18 11:06 Eos % (Auto) 0.6 % (0.0-4.3) 08/16/18 11:06 Baso % (Auto) 0.4 % (0.0-1.8) 08/16/18 11:06 Lymph # 0.4 K/mm3 (1.2-5.4) L 08/16/18 11:06 [place] # 0.6 K/mm3 (0.0-0.8) 08/16/18 11:06 Eos # 0.1 K/mm3 (0.0-0.4) 08/16/18 11:06 Baso # 0.0 K/mm3 (0.0-0.1) 08/16/18 11:06 Add Manual Diff Complete 08/08/18 02:09 Total Counted 100 08/08/18 02:09 Seg Neutrophils % 89.5 % (40.0-70.0) H 08/16/18 11:06 Seg Neuts % (Manual) 73.0 % (40.0-70.0) H 08/08/18 02:09 Band Neutrophils % 5.0 % 08/08/18 02:09 Lymphocytes % (Manual) 9.0 % (13.4-35.0) L 08/08/18 02:09 Reactive Lymphs % (Man) 0 % 08/08/18 02:09 Monocytes % (Manual) 10.0 % (0.0-7.3) H 08/08/18 02:09 Eosinophils % (Manual) 0 % (0.0-4.3) 08/08/18 02:09 Basophils % (Manual) 0 % (0.0-1.8) 08/08/18 02:09 Metamyelocytes % 3.0 % 08/08/18 02:09 Myelocytes % 0 % 08/08/18 02:09 Promyelocytes % 0 % 08/08/18 02:09 Blast Cells % 0 % 08/08/18 02:09 Nucleated RBC % Not Reportable 08/08/18 02:09 Seg Neutrophils # 9.1 K/mm3 (1.8-7.7) H 08/16/18 11:06 Seg Neutrophils # Man 10.7 K/mm3 (1.8-7.7) H 08/08/18 02:09 Band Neutrophils # 0.7 K/mm3 08/08/18 02:09 Lymphocytes # (Manual) 1.3 K/mm3 (1.2-5.4) 08/08/18 02:09 Abs React Lymphs (Man) 0.0 K/mm3 08/08/18 02:09 Monocytes # (Manual) 1.5 K/mm3 (0.0-0.8) H 08/08/18 02:09 Eosinophils # (Manual) 0.0 K/mm3 (0.0-0.4) 08/08/18 02:09 Basophils # (Manual) 0.0 K/mm3 (0.0-0.1) 08/08/18 02:09 Metamyelocytes # 0.4 K/mm3 08/08/18 02:09 Myelocytes # 0.0 K/mm3 08/08/18 02:09 Promyelocytes # 0.0 K/mm3 08/08/18 02:09 Blast Cells # 0.0 K/mm3 08/08/18 02:09 Pathologist Review 07/28/18 06:01 WBC Morphology Not Reportable 08/08/18 02:09 Hypersegmented Neuts Not Reportable 08/08/18 02:09 Hyposegmented Neuts Not Reportable 08/08/18 02:09 Hypogranular Neuts Not Reportable 08/08/18 02:09 Smudge Cells Not Reportable 08/08/18 02:09 Toxic Granulation Not Reportable 08/08/18 02:09 Toxic Vacuolation Not Reportable 08/08/18 02:09 Dohle Bodies Not Reportable 08/08/18 02:09 Pelger-Huet Anomaly Not Reportable 08/08/18 02:09 Janiya Rods Not Reportable 08/08/18 02:09 Platelet Estimate Appears normal 08/08/18 02:09 Clumped Platelets Not Reportable 08/08/18 02:09 Plt Clumps, EDTA Not Reportable 08/08/18 02:09 Large Platelets Not Reportable 08/08/18 02:09 Giant Platelets Not Reportable 08/08/18 02:09 Platelet Satelliting Not Reportable 08/08/18 02:09 Plt Morphology Comment Not Reportable 08/08/18 02:09 RBC Morphology Not Reportable 08/08/18 02:09 Dimorphic RBCs Not Reportable 08/08/18 02:09 Polychromasia Not Reportable 08/08/18 02:09 Hypochromasia Few 08/08/18 02:09 Poikilocytosis Not Reportable 08/08/18 02:09 Anisocytosis 1+ 08/08/18 02:09 Microcytosis Not Reportable 08/08/18 02:09 Macrocytosis Not Reportable 08/08/18 02:09 Spherocytes Not Reportable 08/08/18 02:09 Pappenheimer Bodies Not Reportable 08/08/18 02:09 Sickle Cells Not Reportable 08/08/18 02:09 Target Cells Not Reportable 08/08/18 02:09 Tear Drop Cells Not Reportable 08/08/18 02:09 Ovalocytes Not Reportable 08/08/18 02:09 Stomatocytes Few 08/08/18 02:09 Helmet Cells Not Reportable 08/08/18 02:09 Lr-[place] Bodies Not Reportable 08/08/18 02:09 [place] Rings Not Reportable 08/08/18 02:09 [place] Cells Not Reportable 08/08/18 02:09 Bite Cells Not Reportable 08/08/18 02:09 Crenated Cell Not Reportable 08/08/18 02:09 Elliptocytes Not Reportable 08/08/18 02:09 Acanthocytes (Spur) Not Reportable 08/08/18 02:09 Rouleaux Not Reportable 08/08/18 02:09 Hemoglobin C Crystals Not Reportable 08/08/18 02:09 Schistocytes Not Reportable 08/08/18 02:09 Malaria parasites Not Reportable 08/08/18 02:09 Jigar Bodies Not Reportable 08/08/18 02:09 Hem Pathologist Commnt No 08/08/18 02:09 PT 13.4 Sec. (12.2-14.9) 08/07/18 15:08 INR 0.98 (0.87-1.13) 08/07/18 15:08 APTT 23.2 Sec. (24.2-36.6) L 08/07/18 15:08 D-Dimer 798.17 ng/mlDDU (0-234) H 07/27/18 15:52 Heparin Anti-Xa Level 1.18 U.I./ml (0.3-0.7) H 08/12/18 14:56 POC ABG pH 7.370 (7.35-7.45) 08/19/18 05:16 POC ABG pCO2 57.5 (35-45) H 08/19/18 05:16 POC ABG pO2 65 (80-105) L 08/19/18 05:16 POC ABG HCO3 33.2 08/19/18 05:16 POC ABG Total CO2 35 08/19/18 05:16 POC ABG O2 Sat 91 08/19/18 05:16 POC ABG Base Excess 8 08/19/18 05:16 FiO2 40 % 08/19/18 05:16 Sodium 140 mmol/L (137-145) 08/19/18 04:55 Potassium 4.3 mmol/L (3.6-5.0) 08/19/18 04:55 Chloride 97.8 mmol/L (98-107) L 08/19/18 04:55 Carbon Dioxide 32 mmol/L (22-30) H 08/19/18 04:55 Anion Gap 15 mmol/L 08/19/18 04:55 BUN 12 mg/dL (9-20) 08/19/18 04:55 Creatinine 0.4 mg/dL (0.8-1.5) L 08/19/18 04:55 Estimated GFR > 60 ml/min 08/19/18 04:55 BUN/Creatinine Ratio 30 % 08/19/18 04:55 Glucose 116 mg/dL (75-100) H 08/19/18 04:55 POC Glucose 160 (70-105) H 08/20/18 06:03 Lactic Acid 1.30 mmol/L (0.7-2.0) 08/03/18 16:48 Calcium 9.0 mg/dL (8.4-10.2) 08/19/18 04:55 Phosphorus 3.30 mg/dL (2.5-4.5) 08/19/18 04:55 Magnesium 2.30 mg/dL (1.7-2.3) 08/19/18 04:55 Total Bilirubin 1.30 mg/dL (0.1-1.2) H 07/27/18 12:59 AST 15 units/L (5-40) 07/27/18 12:59 ALT 16 units/L (7-56) 07/27/18 12:59 Alkaline Phosphatase 62 units/L (35-129) 07/27/18 12:59 Troponin T < 0.010 ng/mL (0.00-0.029) 07/27/18 12:59 C-Reactive Protein 2.30 mg/dL (0.00-1.30) H 08/03/18 16:48 NT-Pro-B Natriuret Pep 3913 pg/mL (0-900) H 07/27/18 12:59 Total Protein 6.2 g/dL (6.3-8.2) L 07/27/18 12:59 Albumin 3.6 g/dL (3.9-5) L 07/27/18 12:59 Albumin/Globulin Ratio 1.4 % 07/27/18 12:59 Triglycerides 64 mg/dL (2-149) 08/08/18 14:02 TSH 1.180 mlU/mL (0.270-4.200) 07/27/18 15:52 Free T4 1.28 ng/dL (0.76-1.46) 07/27/18 15:52 Urine Color Yellow (Yellow) 08/11/18 12:50 Urine Turbidity Clear (Clear) 08/11/18 12:50 Urine pH 6.0 (5.0-7.0) 08/11/18 12:50 Ur Specific [place] 1.015 (1.003-1.030) 08/11/18 12:50 Urine Protein <15 mg/dl mg/dL (Negative) 08/11/18 12:50 Urine Glucose (UA) 50 mg/dL (Negative) 08/11/18 12:50 Urine Ketones Neg mg/dL (Negative) 08/11/18 12:50 Urine Blood Neg (Negative) 08/11/18 12:50 Urine Nitrite Neg (Negative) 08/11/18 12:50 Urine Bilirubin Neg (Negative) 08/11/18 12:50 Urine Urobilinogen 4.0 mg/dL (<2.0) 08/11/18 12:50 Ur Leukocyte Esterase Neg (Negative) 08/11/18 12:50 Urine WBC (Auto) 2.0 /HPF (0.0-6.0) 08/11/18 12:50 Urine RBC (Auto) 2.0 /HPF (0.0-6.0) 08/11/18 12:50 U Epithel Cells (Auto) 2.0 /HPF (0-13.0) 07/29/18 09:24 Urine Bacteria (Auto) 1+ /HPF (Negative) 08/11/18 12:50 Urine Mucus Few /HPF 08/11/18 12:50 Urine Yeast ([place]) 1+ /HPF 07/29/18 09:24 Urine Creatinine 72.3 mg/dL (0.1-20.0) H 07/29/18 09:24 Urine Sodium 12 mmol/L 07/29/18 09:24 Random Vancomycin 9.2 ug/mL (0-40.0) 07/29/18 04:21 Nutrition/Malnutrition Assess - Dietary Evaluation Nutrition/Malnutrition Findings: Nutrition Notes Start: 07/28/18 10:54 Freq: Status: Active Protocol: Document 08/16/18 10:40 OL (Rec: 08/16/18 10:42 OL [id number]) Nutrition Notes Initial or Follow up Reassessment Current Diagnoses Acute Kidney Injury COPD Sepsis Hypertension Heart Failure Respiratory Failure Other Pertinent Diagnosis Hx of Skin Cancer Current Diet Nepro at 50ml/hr Labs/Tests Reviewed Medications Reviewed Height 5 ft 8 in Weight 85.1 kg [place] Body Weight (lbs) 154.0 BMI 28.5 Subjective/Other Information Nepro infusing at goal rate of 50mL/hr, well tolerated Burn Absent Trauma Absent #1 Nutrition Diagnoses Inadequate oral intake Diagnosis Progress(for reassessment Continues documentation) Is patient on ventilator? Yes Is Patient Ambulatory and/or Out of Bed No REE-([facility]-confined to bed) [phone] Calculation Used for Recommendations [facility] Additional Notes protein (1.2-2g/kg): 102-170g fluid: 1mL/kcal Nutrition Intervention Change Diet Order: Continue TF Nutrition Support: Nepro at 50mL/hr 250 mL free water flush q4h or per MD. Kcal 2,160 Protein (gm) 97 Fluid (mL) 872 Goal #1 TF tolerance and rate Goal #2 Meet at least 80% of kcal needs and 80-100% of protein needs. Follow-Up By: 08/23/18 Additional Comments f/u: stable TF
[2018-08-20] MEDS: BROVANA NEBU IH SCH ×2 (08:36→21:02)
[2018-08-20] MEDS: PULMICORT IH SCH ×2 (08:36→21:02)
[2018-08-20] MEDS: ELIQUIS PO SCH ×2 (09:57→22:12)
[2018-08-20] MEDS: PEPCID PO SCH ×2 (09:57→22:13)
[2018-08-20] MEDS: CORDARONE PO SCH ×2 (09:57→22:12)
[2018-08-20] MEDS: VITAMIN B-12 PO SCH (09:57)
[2018-08-20] MEDS: SODIUM CHLORIDE FLUSH SYRINGE 10 ML IV SCH ×2 (09:57→22:14)
[2018-08-20] MEDS: PRAVACHOL PO SCH (09:57)
--- NOTE | 2018-08-20 14:04 | Progress Note ---
Assessment and Plan Acute hypoxemic respiratory failure, on mechanical ventilatory support. Atrial fibrillation with rapid ventricular response. Possible congestive heart failure with an acute exacerbation. 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 Elevated D-dimer. Leukocytosis. Sepsis syndrome with hypotension and fevers this morning. Chronic obstructive lung disease with an acute exacerbation. Hypernatremia Peripheral vascular disease. Mixed acidosis, respiratory and metabolic. Acute kidney injury. Lactic acidosis. Elevated BNP level of 3913. History of hypertension. History of arthritis. - continue RTC t-piece as tolerated henceforth - continue seroquel at current dose - hypernatremia resolved - continue Lantus insulin with SSI for glycemic control - tapered off solumedrol - PT/OT evaluation ongoing (up in chair daily) - continue enteral nutrition as tolerated - swallow evaluation next 24-48 hours - continue supplemental oxygen to keep sats >/= 90% - continue aspiration precautions - continue bronchodilators with routine trach care and pulmonary hygiene per RT - continue therapeutic anticoagulation - continue stress ulcer prophylaxis - continue Antibiotics to complete course - continue mobility protocol for pressure ulcer prevention - continue pother care per attending / other consultants - d/c planning for LTAC care is appropriate .... re-evaluate in am & prn ... care plan discussed with patient and caregiver in room ..... transfer to [facility] ok FULL CODE STATUS Subjective Date of service: 08/20/18 Principal diagnosis: Acute hypoxemic respiratory failure; A-fib with RVR; Possible CHF; H/O DVT Interval history: Patient is seen today for: Acute hypoxemic respiratory failure on MVS; Atrial fibrillation with RVR; Possible congestive heart failure with an acute exacerbation; History of deep venous thrombosis; Elevated D-dimer. Seen and examined at bedside; 24hour events reviewed; nursing and respiratory care staff consulted; no adverse overnight events reported to me; doing much better; on T-piece; was up in chair; No N/V/F/C Objective Vital Signs - 12hr 08/20/18 08/20/18 08/20/18 03:00 03:04 04:00 Temperature 99 F Pulse Rate 91 H 95 H Pulse Rate [ Anterior Bilateral Throughout] Pulse Rate [ 95 H From Monitor] Respiratory 35 H 27 H Rate Respiratory Rate [Anterior Bilateral Throughout] Blood Pressure 131/74 131/74 O2 Sat by Pulse 92 95 Oximetry O2 Sat by Pulse Oximetry [ Assessment] 08/20/18 08/20/18 08/20/18 05:00 06:00 07:00 Temperature Pulse Rate 89 89 99 H Pulse Rate [ Anterior Bilateral Throughout] Pulse Rate [ From Monitor] Respiratory 15 26 H 16 Rate Respiratory Rate [Anterior Bilateral Throughout] Blood Pressure 162/95 162/95 162/95 O2 Sat by Pulse 51 L Oximetry O2 Sat by Pulse Oximetry [ Assessment] 08/20/18 08/20/18 08/20/18 08:00 08:36 08:46 Temperature 98.6 F Pulse Rate 81 Pulse Rate [ 88 85 Anterior Bilateral Throughout] Pulse Rate [ 93 H From Monitor] Respiratory 34 H Rate Respiratory 32 H 37 H Rate [Anterior Bilateral Throughout] Blood Pressure 131/65 O2 Sat by Pulse 96 95 Oximetry O2 Sat by Pulse 95 Oximetry [ Assessment] 08/20/18 08/20/18 08/20/18 09:00 10:00 11:00 Temperature Pulse Rate 82 86 86 Pulse Rate [ Anterior Bilateral Throughout] Pulse Rate [ From Monitor] Respiratory 35 H 30 H 34 H Rate Respiratory Rate [Anterior Bilateral Throughout] Blood Pressure 140/69 140/69 140/69 O2 Sat by Pulse 92 90 94 Oximetry O2 Sat by Pulse Oximetry [ Assessment] 08/20/18 08/20/18 12:00 13:00 Temperature 97.9 F Pulse Rate 108 H 87 Pulse Rate [ Anterior Bilateral Throughout] Pulse Rate [ 96 H From Monitor] Respiratory 16 24 Rate Respiratory Rate [Anterior Bilateral Throughout] Blood Pressure 138/78 148/64 O2 Sat by Pulse 97 97 Oximetry O2 Sat by Pulse Oximetry [ Assessment] Constitutional: appears uncomfortable, other (elderly looking CM, normocephalic and atraumatic with normal respiratory effort) Eyes: non-icteric ENT: oropharynx moist, other (s/p tracheosomy) Neck: supple, no lymphadenopathy, no JVD, other (No thyromegaly) Effort: mildly labored Ascultation: Bilateral: diminished breath sounds, rhonchi Percussion: Bilateral: not dull Cardiovascular: irregular rhythm, other (+ systolic murmur) Gastrointestinal: normoactive bowel sounds, soft, non-tender, non-distended, other (No palpable HSM) Integumentary: rash, other (upper extremity edema) Extremities: no cyanosis, pink and warm, pulses normal, no ischemia or petechiae Neurologic: normal mental status, non-focal exam (grossly), pupils equal and round, CN II-XII normal, other (moves all extemities) Psychiatric: mood appropriate, affect normal CBC and BMP: 08/19/18 04:55 08/19/18 04:55 ABG, PT/INR, D-dimer: ABG POC ABG pH 7.370 (7.35-7.45) 08/19/18 05:16 POC ABG pCO2 57.5 (35-45) H 08/19/18 05:16 POC ABG pO2 65 (80-105) L 08/19/18 05:16 POC ABG HCO3 33.2 08/19/18 05:16 POC ABG Total CO2 35 08/19/18 05:16 POC ABG O2 Sat 91 08/19/18 05:16 PT/INR, D-dimer PT 13.4 Sec. (12.2-14.9) 08/07/18 15:08 INR 0.98 (0.87-1.13) 08/07/18 15:08 D-Dimer 798.17 ng/mlDDU (0-234) H 07/27/18 15:52 Abnormal lab findings: Abnormal Labs 07/27/18 07/27/18 07/27/18 12:59 12:59 12:59 WBC 15.8 H RBC Hgb Hct MCV 104 H MCH 34 H MCHC RDW 16.3 H Lymph % (Auto) [place] % (Auto) Lymph # [place] # Seg Neutrophils % Seg Neuts % (Manual) 88.0 H Lymphocytes % (Manual) 3.0 L Monocytes % (Manual) Nucleated RBC % Seg Neutrophils # Seg Neutrophils # Man 13.9 H Lymphocytes # (Manual) 0.5 L Monocytes # (Manual) PT 17.0 H INR 1.34 H APTT D-Dimer Heparin Anti-Xa Level POC ABG pH POC ABG pCO2 POC ABG pO2 Sodium Potassium Chloride Carbon Dioxide 21 L BUN 38 H Creatinine 1.6 H Glucose POC Glucose Lactic Acid Calcium Phosphorus Total Bilirubin 1.30 H C-Reactive Protein NT-Pro-B Natriuret Pep 3913 H Total Protein 6.2 L Albumin 3.6 L Urine WBC (Auto) Urine Creatinine 07/27/18 07/27/18 07/27/18 15:52 16:12 17:09 WBC RBC Hgb Hct MCV MCH MCHC RDW Lymph % (Auto) [place] % (Auto) Lymph # [place] # Seg Neutrophils % Seg Neuts % (Manual) Lymphocytes % (Manual) Monocytes % (Manual) Nucleated RBC % Seg Neutrophils # Seg Neutrophils # Man Lymphocytes # (Manual) Monocytes # (Manual) PT 16.0 H INR 1.24 H APTT D-Dimer 798.17 H Heparin Anti-Xa Level POC ABG pH POC ABG pCO2 POC ABG pO2 Sodium Potassium Chloride Carbon Dioxide BUN Creatinine Glucose POC Glucose Lactic Acid 5.00 H* Calcium Phosphorus Total Bilirubin C-Reactive Protein NT-Pro-B Natriuret Pep Total Protein Albumin Urine WBC (Auto) Urine Creatinine 07/27/18 07/27/18 07/27/18 17:59 18:07 21:31 WBC RBC Hgb Hct MCV MCH MCHC RDW Lymph % (Auto) [place] % (Auto) Lymph # [place] # Seg Neutrophils % Seg Neuts % (Manual) Lymphocytes % (Manual) Monocytes % (Manual) Nucleated RBC % Seg Neutrophils # Seg Neutrophils # Man Lymphocytes # (Manual) Monocytes # (Manual) PT INR APTT D-Dimer Heparin Anti-Xa Level POC ABG pH 7.344 L POC ABG pCO2 POC ABG pO2 36 L Sodium Potassium Chloride Carbon Dioxide BUN Creatinine Glucose POC Glucose Lactic Acid 5.20 H* 5.00 H* Calcium Phosphorus Total Bilirubin C-Reactive Protein NT-Pro-B Natriuret Pep Total Protein Albumin Urine WBC (Auto) Urine Creatinine 07/27/18 07/27/18 07/27/18 21:57 22:42 23:26 WBC RBC Hgb Hct MCV MCH MCHC RDW Lymph % (Auto) [place] % (Auto) Lymph # [place] # Seg Neutrophils % Seg Neuts % (Manual) Lymphocytes % (Manual) Monocytes % (Manual) Nucleated RBC % Seg Neutrophils # Seg Neutrophils # Man Lymphocytes # (Manual) Monocytes # (Manual) PT INR APTT D-Dimer Heparin Anti-Xa Level POC ABG pH 7.199 L POC ABG pCO2 62.0 H POC ABG pO2 Sodium Potassium Chloride Carbon Dioxide BUN Creatinine Glucose POC Glucose Lactic Acid 4.70 H* 5.00 H* Calcium Phosphorus Total Bilirubin C-Reactive Protein NT-Pro-B Natriuret Pep Total Protein Albumin Urine WBC (Auto) Urine Creatinine 07/28/18 07/28/18 07/28/18 00:45 05:40 05:58 WBC RBC Hgb Hct MCV MCH MCHC RDW Lymph % (Auto) [place] % (Auto) Lymph # [place] # Seg Neutrophils % Seg Neuts % (Manual) Lymphocytes % (Manual) Monocytes % (Manual) Nucleated RBC % Seg Neutrophils # Seg Neutrophils # Man Lymphocytes # (Manual) Monocytes # (Manual) PT INR APTT D-Dimer Heparin Anti-Xa Level 0.11 L POC ABG pH 7.186 L POC ABG pCO2 60.1 H POC ABG pO2 68 L Sodium Potassium Chloride Carbon Dioxide BUN Creatinine Glucose POC Glucose Lactic Acid 4.70 H* Calcium Phosphorus Total Bilirubin C-Reactive Protein NT-Pro-B Natriuret Pep Total Protein Albumin Urine WBC (Auto) Urine Creatinine 07/28/18 07/28/18 07/28/18 06:01 06:01 07:19 WBC 12.5 H RBC 3.51 L Hgb 11.5 L Hct MCV 104 H MCH 33 H MCHC RDW 16.6 H Lymph % (Auto) [place] % (Auto) Lymph # [place] # Seg Neutrophils % Seg Neuts % (Manual) Lymphocytes % (Manual) Monocytes % (Manual) Nucleated RBC % Seg Neutrophils # Seg Neutrophils # Man Lymphocytes # (Manual) Monocytes # (Manual) PT INR APTT D-Dimer Heparin Anti-Xa Level 0.14 L POC ABG pH POC ABG pCO2 POC ABG pO2 Sodium 135 L Potassium 5.1 H Chloride 95.0 L Carbon Dioxide 21 L BUN 54 H Creatinine 2.6 H D Glucose POC Glucose Lactic Acid Calcium Phosphorus Total Bilirubin C-Reactive Protein NT-Pro-B Natriuret Pep Total Protein Albumin Urine WBC (Auto) Urine Creatinine 07/28/18 07/28/18 07/28/18 07:19 09:20 11:06 WBC RBC Hgb Hct MCV MCH MCHC RDW Lymph % (Auto) [place] % (Auto) Lymph # [place] # Seg Neutrophils % Seg Neuts % (Manual) Lymphocytes % (Manual) Monocytes % (Manual) Nucleated RBC % Seg Neutrophils # Seg Neutrophils # Man Lymphocytes # (Manual) Monocytes # (Manual) PT INR APTT D-Dimer Heparin Anti-Xa Level POC ABG pH 7.266 L POC ABG pCO2 49.7 H POC ABG pO2 74 L Sodium Potassium Chloride Carbon Dioxide BUN Creatinine Glucose POC Glucose Lactic Acid 4.00 H* 3.90 H* Calcium Phosphorus Total Bilirubin C-Reactive Protein NT-Pro-B Natriuret Pep Total Protein Albumin Urine WBC (Auto) Urine Creatinine 07/28/18 07/28/18 07/28/18 15:06 20:45 23:36 WBC RBC Hgb Hct MCV MCH MCHC RDW Lymph % (Auto) [place] % (Auto) Lymph # [place] # Seg Neutrophils % Seg Neuts % (Manual) Lymphocytes % (Manual) Monocytes % (Manual) Nucleated RBC % Seg Neutrophils # Seg Neutrophils # Man Lymphocytes # (Manual) Monocytes # (Manual) PT INR APTT D-Dimer Heparin Anti-Xa Level 0.15 L POC ABG pH POC ABG pCO2 POC ABG pO2 Sodium 134 L Potassium 5.2 H Chloride Carbon Dioxide BUN 58 H Creatinine 2.1 H Glucose 110 H POC Glucose 125 H Lactic Acid Calcium Phosphorus Total Bilirubin C-Reactive Protein NT-Pro-B Natriuret Pep Total Protein Albumin Urine WBC (Auto) Urine Creatinine 07/29/18 07/29/18 07/29/18 01:12 04:21 04:21 WBC RBC 3.21 L Hgb 10.8 L Hct 33.0 L MCV 103 H MCH 34 H MCHC RDW 16.4 H Lymph % (Auto) [place] % (Auto) Lymph # [place] # Seg Neutrophils % Seg Neuts % (Manual) Lymphocytes % (Manual) 11.0 L Monocytes % (Manual) Nucleated RBC % Seg Neutrophils # Seg Neutrophils # Man Lymphocytes # (Manual) 1.0 L Monocytes # (Manual) PT INR APTT D-Dimer Heparin Anti-Xa Level 0.21 L POC ABG pH POC ABG pCO2 POC ABG pO2 Sodium Potassium Chloride Carbon Dioxide BUN 48 H Creatinine 1.6 H Glucose 166 H POC Glucose Lactic Acid Calcium Phosphorus Total Bilirubin C-Reactive Protein NT-Pro-B Natriuret Pep Total Protein Albumin Urine WBC (Auto) Urine Creatinine 07/29/18 07/29/18 07/29/18 05:19 08:16 09:24 WBC RBC Hgb Hct MCV MCH MCHC RDW Lymph % (Auto) [place] % (Auto) Lymph # [place] # Seg Neutrophils % Seg Neuts % (Manual) Lymphocytes % (Manual) Monocytes % (Manual) Nucleated RBC % Seg Neutrophils # Seg Neutrophils # Man Lymphocytes # (Manual) Monocytes # (Manual) PT INR APTT D-Dimer Heparin Anti-Xa Level 0.25 L POC ABG pH POC ABG pCO2 POC ABG pO2 Sodium Potassium Chloride Carbon Dioxide BUN Creatinine Glucose POC Glucose 181 H Lactic Acid Calcium Phosphorus Total Bilirubin C-Reactive Protein NT-Pro-B Natriuret Pep Total Protein Albumin Urine WBC (Auto) 29.0 H Urine Creatinine 07/29/18 07/29/18 07/29/18 09:24 10:00 15:03 WBC RBC Hgb Hct MCV MCH MCHC RDW Lymph % (Auto) [place] % (Auto) Lymph # [place] # Seg Neutrophils % Seg Neuts % (Manual) Lymphocytes % (Manual) Monocytes % (Manual) Nucleated RBC % Seg Neutrophils # Seg Neutrophils # Man Lymphocytes # (Manual) Monocytes # (Manual) PT INR APTT D-Dimer Heparin Anti-Xa Level POC ABG pH POC ABG pCO2 POC ABG pO2 Sodium Potassium Chloride Carbon Dioxide BUN Creatinine Glucose POC Glucose 195 H 167 H Lactic Acid Calcium Phosphorus Total Bilirubin C-Reactive Protein NT-Pro-B Natriuret Pep Total Protein Albumin Urine WBC (Auto) Urine Creatinine 72.3 H 07/29/18 07/29/18 07/30/18 17:51 21:32 01:38 WBC RBC Hgb Hct MCV MCH MCHC RDW Lymph % (Auto) [place] % (Auto) Lymph # [place] # Seg Neutrophils % Seg Neuts % (Manual) Lymphocytes % (Manual) Monocytes % (Manual) Nucleated RBC % Seg Neutrophils # Seg Neutrophils # Man Lymphocytes # (Manual) Monocytes # (Manual) PT INR APTT D-Dimer Heparin Anti-Xa Level POC ABG pH POC ABG pCO2 POC ABG pO2 Sodium Potassium Chloride Carbon Dioxide BUN Creatinine Glucose POC Glucose 167 H 217 H 194 H Lactic Acid Calcium Phosphorus Total Bilirubin C-Reactive Protein NT-Pro-B Natriuret Pep Total Protein Albumin Urine WBC (Auto) Urine Creatinine 07/30/18 07/30/18 07/30/18 03:21 05:13 10:18 WBC RBC Hgb Hct MCV MCH MCHC RDW Lymph % (Auto) [place] % (Auto) Lymph # [place] # Seg Neutrophils % Seg Neuts % (Manual) Lymphocytes % (Manual) Monocytes % (Manual) Nucleated RBC % Seg Neutrophils # Seg Neutrophils # Man Lymphocytes # (Manual) Monocytes # (Manual) PT INR APTT D-Dimer Heparin Anti-Xa Level POC ABG pH POC ABG pCO2 50.3 H POC ABG pO2 78 L Sodium Potassium Chloride Carbon Dioxide BUN 41 H Creatinine Glucose 202 H POC Glucose 151 H Lactic Acid Calcium Phosphorus Total Bilirubin C-Reactive Protein NT-Pro-B Natriuret Pep Total Protein Albumin Urine WBC (Auto) Urine Creatinine 07/30/18 07/30/18 07/30/18 11:29 16:28 18:12 WBC RBC Hgb Hct MCV MCH MCHC RDW Lymph % (Auto) [place] % (Auto) Lymph # [place] # Seg Neutrophils % Seg Neuts % (Manual) Lymphocytes % (Manual) Monocytes % (Manual) Nucleated RBC % Seg Neutrophils # Seg Neutrophils # Man Lymphocytes # (Manual) Monocytes # (Manual) PT INR APTT D-Dimer Heparin Anti-Xa Level POC ABG pH 7.326 L POC ABG pCO2 53.2 H POC ABG pO2 70 L Sodium Potassium Chloride Carbon Dioxide BUN Creatinine Glucose POC Glucose 247 H 212 H Lactic Acid Calcium Phosphorus Total Bilirubin C-Reactive Protein NT-Pro-B Natriuret Pep Total Protein Albumin Urine WBC (Auto) Urine Creatinine 07/30/18 07/30/18 07/31/18 20:08 21:52 01:59 WBC RBC Hgb Hct MCV MCH MCHC RDW Lymph % (Auto) [place] % (Auto) Lymph # [place] # Seg Neutrophils % Seg Neuts % (Manual) Lymphocytes % (Manual) Monocytes % (Manual) Nucleated RBC % Seg Neutrophils # Seg Neutrophils # Man Lymphocytes # (Manual) Monocytes # (Manual) PT INR APTT D-Dimer Heparin Anti-Xa Level POC ABG pH POC ABG pCO2 POC ABG pO2 Sodium Potassium Chloride Carbon Dioxide BUN Creatinine Glucose POC Glucose 205 H 215 H 242 H Lactic Acid Calcium Phosphorus Total Bilirubin C-Reactive Protein NT-Pro-B Natriuret Pep Total Protein Albumin Urine WBC (Auto) Urine Creatinine 07/31/18 07/31/18 07/31/18 03:14 03:14 04:55 WBC RBC Hgb 10.6 L Hct 33.2 L MCV MCH MCHC RDW Lymph % (Auto) [place] % (Auto) Lymph # [place] # Seg Neutrophils % Seg Neuts % (Manual) Lymphocytes % (Manual) Monocytes % (Manual) Nucleated RBC % Seg Neutrophils # Seg Neutrophils # Man Lymphocytes # (Manual) Monocytes # (Manual) PT INR APTT D-Dimer Heparin Anti-Xa Level POC ABG pH 7.331 L POC ABG pCO2 67.1 H POC ABG pO2 Sodium Potassium Chloride Carbon Dioxide BUN 36 H Creatinine 0.7 L Glucose 242 H POC Glucose Lactic Acid Calcium 10.3 H Phosphorus 2.30 L Total Bilirubin C-Reactive Protein NT-Pro-B Natriuret Pep Total Protein Albumin Urine WBC (Auto) Urine Creatinine 07/31/18 07/31/18 07/31/18 05:37 10:08 14:07 WBC RBC Hgb Hct MCV MCH MCHC RDW Lymph % (Auto) [place] % (Auto) Lymph # [place] # Seg Neutrophils % Seg Neuts % (Manual) Lymphocytes % (Manual) Monocytes % (Manual) Nucleated RBC % Seg Neutrophils # Seg Neutrophils # Man Lymphocytes # (Manual) Monocytes # (Manual) PT INR APTT D-Dimer Heparin Anti-Xa Level POC ABG pH POC ABG pCO2 POC ABG pO2 Sodium Potassium Chloride Carbon Dioxide BUN Creatinine Glucose POC Glucose 193 H 247 H 225 H Lactic Acid Calcium Phosphorus Total Bilirubin C-Reactive Protein NT-Pro-B Natriuret Pep Total Protein Albumin Urine WBC (Auto) Urine Creatinine 07/31/18 07/31/18 08/01/18 18:12 21:34 02:00 WBC RBC Hgb Hct MCV MCH MCHC RDW Lymph % (Auto) [place] % (Auto) Lymph # [place] # Seg Neutrophils % Seg Neuts % (Manual) Lymphocytes % (Manual) Monocytes % (Manual) Nucleated RBC % Seg Neutrophils # Seg Neutrophils # Man Lymphocytes # (Manual) Monocytes # (Manual) PT INR APTT D-Dimer Heparin Anti-Xa Level POC ABG pH POC ABG pCO2 POC ABG pO2 Sodium Potassium Chloride Carbon Dioxide BUN Creatinine Glucose POC Glucose 197 H 204 H 239 H Lactic Acid Calcium Phosphorus Total Bilirubin C-Reactive Protein NT-Pro-B Natriuret Pep Total Protein Albumin Urine WBC (Auto) Urine Creatinine 08/01/18 08/01/18 08/01/18 04:13 04:37 05:29 WBC RBC Hgb Hct MCV MCH MCHC RDW Lymph % (Auto) [place] % (Auto) Lymph # [place] # Seg Neutrophils % Seg Neuts % (Manual) Lymphocytes % (Manual) Monocytes % (Manual) Nucleated RBC % Seg Neutrophils # Seg Neutrophils # Man Lymphocytes # (Manual) Monocytes # (Manual) PT INR APTT D-Dimer Heparin Anti-Xa Level POC ABG pH 7.296 L POC ABG pCO2 81.9 H POC ABG pO2 190 H Sodium 150 H D Potassium Chloride Carbon Dioxide 37 H D BUN 37 H Creatinine 0.6 L Glucose 223 H POC Glucose 219 H Lactic Acid Calcium Phosphorus Total Bilirubin C-Reactive Protein NT-Pro-B Natriuret Pep Total Protein Albumin Urine WBC (Auto) Urine Creatinine 08/01/18 08/01/18 08/01/18 09:28 11:00 17:36 WBC RBC Hgb Hct MCV MCH MCHC RDW Lymph % (Auto) [place] % (Auto) Lymph # [place] # Seg Neutrophils % Seg Neuts % (Manual) Lymphocytes % (Manual) Monocytes % (Manual) Nucleated RBC % Seg Neutrophils # Seg Neutrophils # Man Lymphocytes # (Manual) Monocytes # (Manual) PT INR APTT D-Dimer Heparin Anti-Xa Level POC ABG pH POC ABG pCO2 61.2 H POC ABG pO2 69 L Sodium Potassium Chloride Carbon Dioxide BUN Creatinine Glucose POC Glucose 185 H 234 H Lactic Acid Calcium Phosphorus Total Bilirubin C-Reactive Protein NT-Pro-B Natriuret Pep Total Protein Albumin Urine WBC (Auto) Urine Creatinine 08/01/18 08/02/18 08/02/18 21:54 00:08 00:44 WBC RBC Hgb Hct MCV MCH MCHC RDW Lymph % (Auto) [place] % (Auto) Lymph # [place] # Seg Neutrophils % Seg Neuts % (Manual) Lymphocytes % (Manual) Monocytes % (Manual) Nucleated RBC % Seg Neutrophils # Seg Neutrophils # Man Lymphocytes # (Manual) Monocytes # (Manual) PT INR APTT D-Dimer Heparin Anti-Xa Level 0.77 H POC ABG pH POC ABG pCO2 66.4 H POC ABG pO2 64 L Sodium Potassium Chloride Carbon Dioxide BUN Creatinine Glucose POC Glucose 242 H Lactic Acid Calcium Phosphorus Total Bilirubin C-Reactive Protein NT-Pro-B Natriuret Pep Total Protein Albumin Urine WBC (Auto) Urine Creatinine 08/02/18 08/02/18 08/02/18 02:46 04:45 04:45 WBC RBC Hgb 10.7 L Hct 33.7 L MCV MCH MCHC RDW Lymph % (Auto) [place] % (Auto) Lymph # [place] # Seg Neutrophils % Seg Neuts % (Manual) Lymphocytes % (Manual) Monocytes % (Manual) Nucleated RBC % Seg Neutrophils # Seg Neutrophils # Man Lymphocytes # (Manual) Monocytes # (Manual) PT INR APTT D-Dimer Heparin Anti-Xa Level POC ABG pH POC ABG pCO2 POC ABG pO2 Sodium 152 H Potassium Chloride 108.1 H Carbon Dioxide 39 H BUN 38 H Creatinine 0.6 L Glucose 226 H POC Glucose 206 H Lactic Acid Calcium Phosphorus Total Bilirubin C-Reactive Protein NT-Pro-B Natriuret Pep Total Protein Albumin Urine WBC (Auto) Urine Creatinine 08/02/18 08/02/18 08/02/18 05:31 09:46 14:23 WBC RBC Hgb Hct MCV MCH MCHC RDW Lymph % (Auto) [place] % (Auto) Lymph # [place] # Seg Neutrophils % Seg Neuts % (Manual) Lymphocytes % (Manual) Monocytes % (Manual) Nucleated RBC % Seg Neutrophils # Seg Neutrophils # Man Lymphocytes # (Manual) Monocytes # (Manual) PT INR APTT D-Dimer Heparin Anti-Xa Level 0.91 H POC ABG pH POC ABG pCO2 POC ABG pO2 Sodium Potassium Chloride Carbon Dioxide BUN Creatinine Glucose POC Glucose 214 H 210 H Lactic Acid Calcium Phosphorus Total Bilirubin C-Reactive Protein NT-Pro-B Natriuret Pep Total Protein Albumin Urine WBC (Auto) Urine Creatinine 08/02/18 08/02/18 08/02/18 15:46 17:56 21:50 WBC RBC Hgb Hct MCV MCH MCHC RDW Lymph % (Auto) [place] % (Auto) Lymph # [place] # Seg Neutrophils % Seg Neuts % (Manual) Lymphocytes % (Manual) Monocytes % (Manual) Nucleated RBC % Seg Neutrophils # Seg Neutrophils # Man Lymphocytes # (Manual) Monocytes # (Manual) PT INR APTT D-Dimer Heparin Anti-Xa Level 0.99 H POC ABG pH POC ABG pCO2 POC ABG pO2 Sodium Potassium Chloride Carbon Dioxide BUN Creatinine Glucose POC Glucose 252 H 222 H Lactic Acid Calcium Phosphorus Total Bilirubin C-Reactive Protein NT-Pro-B Natriuret Pep Total Protein Albumin Urine WBC (Auto) Urine Creatinine 08/03/18 08/03/18 08/03/18 02:18 05:21 05:25 WBC RBC Hgb Hct MCV MCH MCHC RDW Lymph % (Auto) [place] % (Auto) Lymph # [place] # Seg Neutrophils % Seg Neuts % (Manual) Lymphocytes % (Manual) Monocytes % (Manual) Nucleated RBC % Seg Neutrophils # Seg Neutrophils # Man Lymphocytes # (Manual) Monocytes # (Manual) PT INR APTT D-Dimer Heparin Anti-Xa Level POC ABG pH POC ABG pCO2 POC ABG pO2 Sodium 151 H Potassium Chloride 107.3 H Carbon Dioxide 37 H BUN 42 H Creatinine 0.6 L Glucose 263 H POC Glucose 241 H 241 H Lactic Acid Calcium Phosphorus Total Bilirubin C-Reactive Protein NT-Pro-B Natriuret Pep Total Protein Albumin Urine WBC (Auto) Urine Creatinine 08/03/18 08/03/18 08/03/18 09:11 12:20 14:33 WBC RBC Hgb Hct MCV MCH MCHC RDW Lymph % (Auto) [place] % (Auto) Lymph # [place] # Seg Neutrophils % Seg Neuts % (Manual) Lymphocytes % (Manual) Monocytes % (Manual) Nucleated RBC % Seg Neutrophils # Seg Neutrophils # Man Lymphocytes # (Manual) Monocytes # (Manual) PT INR APTT D-Dimer Heparin Anti-Xa Level POC ABG pH POC ABG pCO2 POC ABG pO2 Sodium Potassium Chloride Carbon Dioxide BUN Creatinine Glucose POC Glucose 272 H 234 H 247 H Lactic Acid Calcium Phosphorus Total Bilirubin C-Reactive Protein NT-Pro-B Natriuret Pep Total Protein Albumin Urine WBC (Auto) Urine Creatinine 08/03/18 08/03/18 08/04/18 16:48 21:21 01:56 WBC RBC Hgb Hct MCV MCH MCHC RDW Lymph % (Auto) [place] % (Auto) Lymph # [place] # Seg Neutrophils % Seg Neuts % (Manual) Lymphocytes % (Manual) Monocytes % (Manual) Nucleated RBC % Seg Neutrophils # Seg Neutrophils # Man Lymphocytes # (Manual) Monocytes # (Manual) PT INR APTT D-Dimer Heparin Anti-Xa Level POC ABG pH POC ABG pCO2 POC ABG pO2 Sodium Potassium Chloride Carbon Dioxide BUN Creatinine Glucose POC Glucose 180 H 189 H Lactic Acid Calcium Phosphorus Total Bilirubin C-Reactive Protein 2.30 H NT-Pro-B Natriuret Pep Total Protein Albumin Urine WBC (Auto) Urine Creatinine 08/04/18 08/04/18 08/04/18 01:58 05:05 05:05 WBC 25.5 H RBC 3.31 L Hgb 10.8 L Hct 34.1 L MCV 103 H MCH 33 H MCHC RDW 16.0 H Lymph % (Auto) [place] % (Auto) Lymph # [place] # Seg Neutrophils % Seg Neuts % (Manual) Lymphocytes % (Manual) 8.0 L Monocytes % (Manual) Nucleated RBC % 2.0 H Seg Neutrophils # Seg Neutrophils # Man 16.3 H Lymphocytes # (Manual) Monocytes # (Manual) 1.0 H PT INR APTT D-Dimer Heparin Anti-Xa Level 0.79 H POC ABG pH POC ABG pCO2 POC ABG pO2 Sodium 148 H Potassium Chloride Carbon Dioxide 36 H BUN 35 H Creatinine 0.6 L Glucose 160 H POC Glucose Lactic Acid Calcium Phosphorus Total Bilirubin C-Reactive Protein NT-Pro-B Natriuret Pep Total Protein Albumin Urine WBC (Auto) Urine Creatinine 08/04/18 08/04/18 08/04/18 05:24 05:33 08:46 WBC RBC Hgb Hct MCV MCH MCHC RDW Lymph % (Auto) [place] % (Auto) Lymph # [place] # Seg Neutrophils % Seg Neuts % (Manual) Lymphocytes % (Manual) Monocytes % (Manual) Nucleated RBC % Seg Neutrophils # Seg Neutrophils # Man Lymphocytes # (Manual) Monocytes # (Manual) PT INR APTT D-Dimer Heparin Anti-Xa Level 0.76 H POC ABG pH POC ABG pCO2 65.7 H POC ABG pO2 63 L Sodium Potassium Chloride Carbon Dioxide BUN Creatinine Glucose POC Glucose 159 H Lactic Acid Calcium Phosphorus Total Bilirubin C-Reactive Protein NT-Pro-B Natriuret Pep Total Protein Albumin Urine WBC (Auto) Urine Creatinine 08/04/18 08/04/18 08/04/18 09:12 15:38 18:20 WBC RBC Hgb Hct MCV MCH MCHC RDW Lymph % (Auto) [place] % (Auto) Lymph # [place] # Seg Neutrophils % Seg Neuts % (Manual) Lymphocytes % (Manual) Monocytes % (Manual) Nucleated RBC % Seg Neutrophils # Seg Neutrophils # Man Lymphocytes # (Manual) Monocytes # (Manual) PT INR APTT D-Dimer Heparin Anti-Xa Level POC ABG pH POC ABG pCO2 POC ABG pO2 Sodium Potassium Chloride Carbon Dioxide BUN Creatinine Glucose POC Glucose 140 H 267 H 252 H Lactic Acid Calcium Phosphorus Total Bilirubin C-Reactive Protein NT-Pro-B Natriuret Pep Total Protein Albumin Urine WBC (Auto) Urine Creatinine 08/04/18 08/05/18 08/05/18 21:17 02:51 04:36 WBC RBC Hgb Hct MCV MCH MCHC RDW Lymph % (Auto) [place] % (Auto) Lymph # [place] # Seg Neutrophils % Seg Neuts % (Manual) Lymphocytes % (Manual) Monocytes % (Manual) Nucleated RBC % Seg Neutrophils # Seg Neutrophils # Man Lymphocytes # (Manual) Monocytes # (Manual) PT INR APTT D-Dimer Heparin Anti-Xa Level POC ABG pH POC ABG pCO2 POC ABG pO2 Sodium Potassium Chloride Carbon Dioxide BUN Creatinine Glucose POC Glucose 181 H 240 H 255 H Lactic Acid Calcium Phosphorus Total Bilirubin C-Reactive Protein NT-Pro-B Natriuret Pep Total Protein Albumin Urine WBC (Auto) Urine Creatinine 08/05/18 08/05/18 08/05/18 04:55 10:21 12:39 WBC 21.8 H RBC 3.18 L Hgb 10.3 L Hct 32.6 L MCV 103 H MCH 33 H MCHC RDW 16.3 H Lymph % (Auto) [place] % (Auto) Lymph # [place] # Seg Neutrophils % Seg Neuts % (Manual) 88.0 H Lymphocytes % (Manual) 4.0 L Monocytes % (Manual) Nucleated RBC % Seg Neutrophils # Seg Neutrophils # Man 19.2 H Lymphocytes # (Manual) 0.9 L Monocytes # (Manual) PT INR APTT D-Dimer Heparin Anti-Xa Level POC ABG pH 7.506 H POC ABG pCO2 56.0 H POC ABG pO2 63 L Sodium Potassium Chloride Carbon Dioxide BUN Creatinine Glucose POC Glucose 227 H Lactic Acid Calcium Phosphorus Total Bilirubin C-Reactive Protein NT-Pro-B Natriuret Pep Total Protein Albumin Urine WBC (Auto) Urine Creatinine 08/05/18 08/05/18 08/05/18 12:39 14:10 17:30 WBC RBC Hgb Hct MCV MCH MCHC RDW Lymph % (Auto) [place] % (Auto) Lymph # [place] # Seg Neutrophils % Seg Neuts % (Manual) Lymphocytes % (Manual) Monocytes % (Manual) Nucleated RBC % Seg Neutrophils # Seg Neutrophils # Man Lymphocytes # (Manual) Monocytes # (Manual) PT INR APTT D-Dimer Heparin Anti-Xa Level < 0.10 L POC ABG pH POC ABG pCO2 POC ABG pO2 Sodium Potassium Chloride 96.8 L Carbon Dioxide 38 H BUN 36 H Creatinine 0.6 L Glucose 218 H POC Glucose 221 H Lactic Acid Calcium Phosphorus Total Bilirubin C-Reactive Protein NT-Pro-B Natriuret Pep Total Protein Albumin Urine WBC (Auto) Urine Creatinine 08/05/18 08/05/18 08/06/18 18:32 23:32 02:26 WBC RBC Hgb Hct MCV MCH MCHC RDW Lymph % (Auto) [place] % (Auto) Lymph # [place] # Seg Neutrophils % Seg Neuts % (Manual) Lymphocytes % (Manual) Monocytes % (Manual) Nucleated RBC % Seg Neutrophils # Seg Neutrophils # Man Lymphocytes # (Manual) Monocytes # (Manual) PT INR APTT D-Dimer Heparin Anti-Xa Level POC ABG pH POC ABG pCO2 POC ABG pO2 Sodium Potassium Chloride Carbon Dioxide BUN Creatinine Glucose POC Glucose 253 H 215 H 227 H Lactic Acid Calcium Phosphorus Total Bilirubin C-Reactive Protein NT-Pro-B Natriuret Pep Total Protein Albumin Urine WBC (Auto) Urine Creatinine 08/06/18 08/06/18 08/06/18 05:17 05:17 05:32 WBC 18.9 H RBC 3.06 L Hgb 10.2 L Hct 31.3 L MCV 102 H MCH 33 H MCHC RDW 16.1 H Lymph % (Auto) [place] % (Auto) Lymph # [place] # Seg Neutrophils % Seg Neuts % (Manual) Lymphocytes % (Manual) Monocytes % (Manual) Nucleated RBC % Seg Neutrophils # Seg Neutrophils # Man Lymphocytes # (Manual) Monocytes # (Manual) PT INR APTT D-Dimer Heparin Anti-Xa Level POC ABG pH 7.468 H POC ABG pCO2 59.5 H POC ABG pO2 64 L Sodium Potassium Chloride Carbon Dioxide 37 H BUN 37 H Creatinine 0.5 L Glucose 226 H POC Glucose Lactic Acid Calcium Phosphorus Total Bilirubin C-Reactive Protein NT-Pro-B Natriuret Pep Total Protein Albumin Urine WBC (Auto) Urine Creatinine 08/06/18 08/06/18 08/06/18 10:11 15:03 17:48 WBC RBC Hgb Hct MCV MCH MCHC RDW Lymph % (Auto) [place] % (Auto) Lymph # [place] # Seg Neutrophils % Seg Neuts % (Manual) Lymphocytes % (Manual) Monocytes % (Manual) Nucleated RBC % Seg Neutrophils # Seg Neutrophils # Man Lymphocytes # (Manual) Monocytes # (Manual) PT INR APTT D-Dimer Heparin Anti-Xa Level POC ABG pH POC ABG pCO2 POC ABG pO2 Sodium Potassium Chloride Carbon Dioxide BUN Creatinine Glucose POC Glucose 207 H 229 H 188 H Lactic Acid Calcium Phosphorus Total Bilirubin C-Reactive Protein NT-Pro-B Natriuret Pep Total Protein Albumin Urine WBC (Auto) Urine Creatinine 08/06/18 08/07/18 08/07/18 22:53 01:55 05:30 WBC RBC Hgb Hct MCV MCH MCHC RDW Lymph % (Auto) [place] % (Auto) Lymph # [place] # Seg Neutrophils % Seg Neuts % (Manual) Lymphocytes % (Manual) Monocytes % (Manual) Nucleated RBC % Seg Neutrophils # Seg Neutrophils # Man Lymphocytes # (Manual) Monocytes # (Manual) PT INR APTT D-Dimer Heparin Anti-Xa Level POC ABG pH POC ABG pCO2 69.6 H POC ABG pO2 64 L Sodium Potassium Chloride Carbon Dioxide BUN Creatinine Glucose POC Glucose 146 H 143 H Lactic Acid Calcium Phosphorus Total Bilirubin C-Reactive Protein NT-Pro-B Natriuret Pep Total Protein Albumin Urine WBC (Auto) Urine Creatinine 08/07/18 08/07/18 08/07/18 09:59 14:16 15:08 WBC RBC Hgb 10.3 L Hct 32.2 L MCV MCH MCHC RDW Lymph % (Auto) [place] % (Auto) Lymph # [place] # Seg Neutrophils % Seg Neuts % (Manual) Lymphocytes % (Manual) Monocytes % (Manual) Nucleated RBC % Seg Neutrophils # Seg Neutrophils # Man Lymphocytes # (Manual) Monocytes # (Manual) PT INR APTT D-Dimer Heparin Anti-Xa Level POC ABG pH POC ABG pCO2 POC ABG pO2 Sodium Potassium Chloride Carbon Dioxide BUN Creatinine Glucose POC Glucose 188 H 223 H Lactic Acid Calcium Phosphorus Total Bilirubin C-Reactive Protein NT-Pro-B Natriuret Pep Total Protein Albumin Urine WBC (Auto) Urine Creatinine 08/07/18 08/07/18 08/07/18 15:08 17:39 22:04 WBC RBC Hgb Hct MCV MCH MCHC RDW Lymph % (Auto) [place] % (Auto) Lymph # [place] # Seg Neutrophils % Seg Neuts % (Manual) Lymphocytes % (Manual) Monocytes % (Manual) Nucleated RBC % Seg Neutrophils # Seg Neutrophils # Man Lymphocytes # (Manual) Monocytes # (Manual) PT INR APTT 23.2 L D-Dimer Heparin Anti-Xa Level POC ABG pH POC ABG pCO2 POC ABG pO2 Sodium Potassium Chloride Carbon Dioxide BUN Creatinine Glucose POC Glucose 208 H 163 H Lactic Acid Calcium Phosphorus Total Bilirubin C-Reactive Protein NT-Pro-B Natriuret Pep Total Protein Albumin Urine WBC (Auto) Urine Creatinine 08/07/18 08/08/18 08/08/18 22:30 01:57 02:09 WBC 14.6 H RBC 2.88 L Hgb 9.5 L Hct 29.9 L MCV 104 H MCH 33 H MCHC RDW 16.8 H Lymph % (Auto) [place] % (Auto) Lymph # [place] # Seg Neutrophils % Seg Neuts % (Manual) 73.0 H Lymphocytes % (Manual) 9.0 L Monocytes % (Manual) 10.0 H Nucleated RBC % Seg Neutrophils # Seg Neutrophils # Man 10.7 H Lymphocytes # (Manual) Monocytes # (Manual) 1.5 H PT INR APTT D-Dimer Heparin Anti-Xa Level 0.25 L POC ABG pH POC ABG pCO2 POC ABG pO2 Sodium Potassium Chloride Carbon Dioxide BUN Creatinine Glucose POC Glucose 120 H Lactic Acid Calcium Phosphorus Total Bilirubin C-Reactive Protein NT-Pro-B Natriuret Pep Total Protein Albumin Urine WBC (Auto) Urine Creatinine 08/08/18 08/08/18 08/08/18 02:09 04:58 05:19 WBC RBC Hgb Hct MCV MCH MCHC RDW Lymph % (Auto) [place] % (Auto) Lymph # [place] # Seg Neutrophils % Seg Neuts % (Manual) Lymphocytes % (Manual) Monocytes % (Manual) Nucleated RBC % Seg Neutrophils # Seg Neutrophils # Man Lymphocytes # (Manual) Monocytes # (Manual) PT INR APTT D-Dimer Heparin Anti-Xa Level POC ABG pH 7.461 H POC ABG pCO2 57.3 H POC ABG pO2 62 L Sodium Potassium Chloride Carbon Dioxide 39 H BUN 29 H Creatinine 0.5 L Glucose 124 H POC Glucose 139 H Lactic Acid Calcium Phosphorus Total Bilirubin C-Reactive Protein NT-Pro-B Natriuret Pep Total Protein Albumin Urine WBC (Auto) Urine Creatinine 08/08/18 08/08/18 08/08/18 10:22 14:52 16:12 WBC RBC Hgb Hct MCV MCH MCHC RDW Lymph % (Auto) [place] % (Auto) Lymph # [place] # Seg Neutrophils % Seg Neuts % (Manual) Lymphocytes % (Manual) Monocytes % (Manual) Nucleated RBC % Seg Neutrophils # Seg Neutrophils # Man Lymphocytes # (Manual) Monocytes # (Manual) PT INR APTT D-Dimer Heparin Anti-Xa Level POC ABG pH POC ABG pCO2 POC ABG pO2 Sodium Potassium Chloride Carbon Dioxide BUN Creatinine Glucose POC Glucose 169 H 149 H 136 H Lactic Acid Calcium Phosphorus Total Bilirubin C-Reactive Protein NT-Pro-B Natriuret Pep Total Protein Albumin Urine WBC (Auto) Urine Creatinine 08/09/18 08/09/18 08/09/18 02:26 03:52 03:52 WBC 15.9 H RBC 2.87 L Hgb 9.6 L Hct 30.7 L MCV 107 H MCH 34 H MCHC 31 L RDW 17.8 H Lymph % (Auto) 3.9 L [place] % (Auto) 8.1 H Lymph # 0.6 L [place] # 1.3 H Seg Neutrophils % 87.1 H Seg Neuts % (Manual) Lymphocytes % (Manual) Monocytes % (Manual) Nucleated RBC % Seg Neutrophils # 13.9 H Seg Neutrophils # Man Lymphocytes # (Manual) Monocytes # (Manual) PT INR APTT D-Dimer Heparin Anti-Xa Level 0.25 L POC ABG pH POC ABG pCO2 POC ABG pO2 Sodium Potassium Chloride Carbon Dioxide BUN Creatinine Glucose POC Glucose 126 H Lactic Acid Calcium Phosphorus Total Bilirubin C-Reactive Protein NT-Pro-B Natriuret Pep Total Protein Albumin Urine WBC (Auto) Urine Creatinine 08/09/18 08/09/18 08/09/18 03:52 05:34 06:48 WBC RBC Hgb Hct MCV MCH MCHC RDW Lymph % (Auto) [place] % (Auto) Lymph # [place] # Seg Neutrophils % Seg Neuts % (Manual) Lymphocytes % (Manual) Monocytes % (Manual) Nucleated RBC % Seg Neutrophils # Seg Neutrophils # Man Lymphocytes # (Manual) Monocytes # (Manual) PT INR APTT D-Dimer Heparin Anti-Xa Level POC ABG pH POC ABG pCO2 57.5 H POC ABG pO2 58 L Sodium Potassium Chloride Carbon Dioxide 39 H BUN 26 H Creatinine 0.5 L Glucose 128 H POC Glucose 171 H Lactic Acid Calcium Phosphorus Total Bilirubin C-Reactive Protein NT-Pro-B Natriuret Pep Total Protein Albumin Urine WBC (Auto) Urine Creatinine 08/09/18 08/09/18 08/09/18 09:28 09:36 13:44 WBC RBC Hgb Hct MCV MCH MCHC RDW Lymph % (Auto) [place] % (Auto) Lymph # [place] # Seg Neutrophils % Seg Neuts % (Manual) Lymphocytes % (Manual) Monocytes % (Manual) Nucleated RBC % Seg Neutrophils # Seg Neutrophils # Man Lymphocytes # (Manual) Monocytes # (Manual) PT INR APTT D-Dimer Heparin Anti-Xa Level 0.26 L POC ABG pH POC ABG pCO2 POC ABG pO2 Sodium Potassium Chloride Carbon Dioxide BUN Creatinine Glucose POC Glucose 183 H 184 H Lactic Acid Calcium Phosphorus Total Bilirubin C-Reactive Protein NT-Pro-B Natriuret Pep Total Protein Albumin Urine WBC (Auto) Urine Creatinine 08/09/18 08/10/18 08/10/18 17:55 04:49 05:20 WBC RBC Hgb Hct MCV MCH MCHC RDW Lymph % (Auto) [place] % (Auto) Lymph # [place] # Seg Neutrophils % Seg Neuts % (Manual) Lymphocytes % (Manual) Monocytes % (Manual) Nucleated RBC % Seg Neutrophils # Seg Neutrophils # Man Lymphocytes # (Manual) Monocytes # (Manual) PT INR APTT D-Dimer Heparin Anti-Xa Level POC ABG pH POC ABG pCO2 59.9 H POC ABG pO2 59 L Sodium Potassium Chloride Carbon Dioxide BUN Creatinine Glucose POC Glucose 148 H 59 L Lactic Acid Calcium Phosphorus Total Bilirubin C-Reactive Protein NT-Pro-B Natriuret Pep Total Protein Albumin Urine WBC (Auto) Urine Creatinine 08/10/18 08/10/18 08/10/18 05:53 17:12 21:17 WBC RBC Hgb Hct MCV MCH MCHC RDW Lymph % (Auto) [place] % (Auto) Lymph # [place] # Seg Neutrophils % Seg Neuts % (Manual) Lymphocytes % (Manual) Monocytes % (Manual) Nucleated RBC % Seg Neutrophils # Seg Neutrophils # Man Lymphocytes # (Manual) Monocytes # (Manual) PT INR APTT D-Dimer Heparin Anti-Xa Level POC ABG pH POC ABG pCO2 POC ABG pO2 Sodium Potassium Chloride Carbon Dioxide BUN Creatinine Glucose POC Glucose 128 H 110 H 109 H Lactic Acid Calcium Phosphorus Total Bilirubin C-Reactive Protein NT-Pro-B Natriuret Pep Total Protein Albumin Urine WBC (Auto) Urine Creatinine 08/11/18 08/11/18 08/11/18 00:54 02:28 04:17 WBC RBC Hgb 7.8 L Hct 24.1 L D MCV MCH MCHC RDW Lymph % (Auto) [place] % (Auto) Lymph # [place] # Seg Neutrophils % Seg Neuts % (Manual) Lymphocytes % (Manual) Monocytes % (Manual) Nucleated RBC % Seg Neutrophils # Seg Neutrophils # Man Lymphocytes # (Manual) Monocytes # (Manual) PT INR APTT D-Dimer Heparin Anti-Xa Level 0.19 L POC ABG pH POC ABG pCO2 POC ABG pO2 Sodium Potassium Chloride Carbon Dioxide BUN Creatinine Glucose POC Glucose 124 H Lactic Acid Calcium Phosphorus Total Bilirubin C-Reactive Protein NT-Pro-B Natriuret Pep Total Protein Albumin Urine WBC (Auto) Urine Creatinine 08/11/18 08/11/18 08/11/18 05:10 07:42 10:27 WBC RBC Hgb Hct MCV MCH MCHC RDW Lymph % (Auto) [place] % (Auto) Lymph # [place] # Seg Neutrophils % Seg Neuts % (Manual) Lymphocytes % (Manual) Monocytes % (Manual) Nucleated RBC % Seg Neutrophils # Seg Neutrophils # Man Lymphocytes # (Manual) Monocytes # (Manual) PT INR APTT D-Dimer Heparin Anti-Xa Level 0.20 L POC ABG pH POC ABG pCO2 POC ABG pO2 Sodium Potassium Chloride Carbon Dioxide BUN Creatinine Glucose POC Glucose 150 H 156 H Lactic Acid Calcium Phosphorus Total Bilirubin C-Reactive Protein NT-Pro-B Natriuret Pep Total Protein Albumin Urine WBC (Auto) Urine Creatinine 08/11/18 08/11/18 08/11/18 13:54 15:06 18:13 WBC RBC Hgb Hct MCV MCH MCHC RDW Lymph % (Auto) [place] % (Auto) Lymph # [place] # Seg Neutrophils % Seg Neuts % (Manual) Lymphocytes % (Manual) Monocytes % (Manual) Nucleated RBC % Seg Neutrophils # Seg Neutrophils # Man Lymphocytes # (Manual) Monocytes # (Manual) PT INR APTT D-Dimer Heparin Anti-Xa Level POC ABG pH 7.471 H POC ABG pCO2 45.5 H POC ABG pO2 79 L Sodium Potassium Chloride Carbon Dioxide BUN Creatinine Glucose POC Glucose 177 H 143 H Lactic Acid Calcium Phosphorus Total Bilirubin C-Reactive Protein NT-Pro-B Natriuret Pep Total Protein Albumin Urine WBC (Auto) Urine Creatinine 08/11/18 08/11/18 08/11/18 18:33 21:22 Unknown WBC RBC Hgb Hct MCV MCH MCHC RDW Lymph % (Auto) [place] % (Auto) Lymph # [place] # Seg Neutrophils % Seg Neuts % (Manual) Lymphocytes % (Manual) Monocytes % (Manual) Nucleated RBC % Seg Neutrophils # Seg Neutrophils # Man Lymphocytes # (Manual) Monocytes # (Manual) PT INR APTT D-Dimer Heparin Anti-Xa Level 0.29 L POC ABG pH POC ABG pCO2 POC ABG pO2 Sodium 136 L Potassium Chloride 96.5 L Carbon Dioxide 32 H D BUN Creatinine 0.5 L Glucose 186 H POC Glucose 151 H Lactic Acid Calcium Phosphorus Total Bilirubin C-Reactive Protein NT-Pro-B Natriuret Pep Total Protein Albumin Urine WBC (Auto) Urine Creatinine 08/11/18 08/12/18 08/12/18 Unknown 02:09 05:29 WBC 12.1 H RBC 2.50 L Hgb 8.2 L Hct 25.7 L MCV 103 H MCH 33 H MCHC RDW 17.0 H Lymph % (Auto) 5.1 L [place] % (Auto) 9.5 H Lymph # 0.6 L [place] # 1.2 H Seg Neutrophils % 84.8 H Seg Neuts % (Manual) Lymphocytes % (Manual) Monocytes % (Manual) Nucleated RBC % Seg Neutrophils # 10.3 H Seg Neutrophils # Man Lymphocytes # (Manual) Monocytes # (Manual) PT INR APTT D-Dimer Heparin Anti-Xa Level POC ABG pH POC ABG pCO2 POC ABG pO2 Sodium Potassium Chloride Carbon Dioxide BUN Creatinine Glucose POC Glucose 159 H 136 H Lactic Acid Calcium Phosphorus Total Bilirubin C-Reactive Protein NT-Pro-B Natriuret Pep Total Protein Albumin Urine WBC (Auto) Urine Creatinine 08/12/18 08/12/18 08/12/18 07:33 09:59 13:59 WBC RBC Hgb Hct MCV MCH MCHC RDW Lymph % (Auto) [place] % (Auto) Lymph # [place] # Seg Neutrophils % Seg Neuts % (Manual) Lymphocytes % (Manual) Monocytes % (Manual) Nucleated RBC % Seg Neutrophils # Seg Neutrophils # Man Lymphocytes # (Manual) Monocytes # (Manual) PT INR APTT D-Dimer Heparin Anti-Xa Level POC ABG pH POC ABG pCO2 POC ABG pO2 Sodium Potassium Chloride Carbon Dioxide BUN Creatinine Glucose POC Glucose 138 H 157 H 167 H Lactic Acid Calcium Phosphorus Total Bilirubin C-Reactive Protein NT-Pro-B Natriuret Pep Total Protein Albumin Urine WBC (Auto) Urine Creatinine 08/12/18 08/12/18 08/12/18 14:31 14:56 17:39 WBC RBC Hgb Hct MCV MCH MCHC RDW Lymph % (Auto) [place] % (Auto) Lymph # [place] # Seg Neutrophils % Seg Neuts % (Manual) Lymphocytes % (Manual) Monocytes % (Manual) Nucleated RBC % Seg Neutrophils # Seg Neutrophils # Man Lymphocytes # (Manual) Monocytes # (Manual) PT INR APTT D-Dimer Heparin Anti-Xa Level 1.18 H POC ABG pH 7.466 H POC ABG pCO2 POC ABG pO2 58 L Sodium Potassium Chloride Carbon Dioxide BUN Creatinine Glucose POC Glucose 168 H Lactic Acid Calcium Phosphorus Total Bilirubin C-Reactive Protein NT-Pro-B Natriuret Pep Total Protein Albumin Urine WBC (Auto) Urine Creatinine 08/12/18 08/13/1818 21:38 02:17 05:20 WBC RBC Hgb 8.0 L Hct 24.5 L MCV MCH MCHC RDW Lymph % (Auto) [place] % (Auto) Lymph # [place] # Seg Neutrophils % Seg Neuts % (Manual) Lymphocytes % (Manual) Monocytes % (Manual) Nucleated RBC % Seg Neutrophils # Seg Neutrophils # Man Lymphocytes # (Manual) Monocytes # (Manual) PT INR APTT D-Dimer Heparin Anti-Xa Level POC ABG pH POC ABG pCO2 POC ABG pO2 Sodium Potassium Chloride Carbon Dioxide BUN Creatinine Glucose POC Glucose 168 H 157 H Lactic Acid Calcium Phosphorus Total Bilirubin C-Reactive Protein NT-Pro-B Natriuret Pep Total Protein Albumin Urine WBC (Auto) Urine Creatinine 08/13/18 08/13/18 08/13/18 09:28 10:07 14:09 WBC RBC Hgb Hct MCV MCH MCHC RDW Lymph % (Auto) [place] % (Auto) Lymph # [place] # Seg Neutrophils % Seg Neuts % (Manual) Lymphocytes % (Manual) Monocytes % (Manual) Nucleated RBC % Seg Neutrophils # Seg Neutrophils # Man Lymphocytes # (Manual) Monocytes # (Manual) PT INR APTT D-Dimer Heparin Anti-Xa Level POC ABG pH 7.453 H POC ABG pCO2 47.5 H POC ABG pO2 Sodium Potassium Chloride Carbon Dioxide BUN Creatinine Glucose POC Glucose 177 H 178 H Lactic Acid Calcium Phosphorus Total Bilirubin C-Reactive Protein NT-Pro-B Natriuret Pep Total Protein Albumin Urine WBC (Auto) Urine Creatinine 08/13/18 08/13/18 08/14/18 17:33 21:28 01:58 WBC RBC Hgb Hct MCV MCH MCHC RDW Lymph % (Auto) [place] % (Auto) Lymph # [place] # Seg Neutrophils % Seg Neuts % (Manual) Lymphocytes % (Manual) Monocytes % (Manual) Nucleated RBC % Seg Neutrophils # Seg Neutrophils # Man Lymphocytes # (Manual) Monocytes # (Manual) PT INR APTT D-Dimer Heparin Anti-Xa Level POC ABG pH POC ABG pCO2 POC ABG pO2 Sodium Potassium Chloride Carbon Dioxide BUN Creatinine Glucose POC Glucose 130 H 145 H 161 H Lactic Acid Calcium Phosphorus Total Bilirubin C-Reactive Protein NT-Pro-B Natriuret Pep Total Protein Albumin Urine WBC (Auto) Urine Creatinine 08/14/18 08/14/18 08/14/18 05:22 06:10 09:59 WBC RBC Hgb Hct MCV MCH MCHC RDW Lymph % (Auto) [place] % (Auto) Lymph # [place] # Seg Neutrophils % Seg Neuts % (Manual) Lymphocytes % (Manual) Monocytes % (Manual) Nucleated RBC % Seg Neutrophils # Seg Neutrophils # Man Lymphocytes # (Manual) Monocytes # (Manual) PT INR APTT D-Dimer Heparin Anti-Xa Level POC ABG pH POC ABG pCO2 POC ABG pO2 Sodium Potassium Chloride Carbon Dioxide BUN Creatinine 0.5 L Glucose 125 H POC Glucose 117 H 107 H Lactic Acid Calcium Phosphorus Total Bilirubin C-Reactive Protein NT-Pro-B Natriuret Pep Total Protein Albumin Urine WBC (Auto) Urine Creatinine 08/14/18 08/14/18 08/14/18 14:04 17:49 21:27 WBC RBC Hgb Hct MCV MCH MCHC RDW Lymph % (Auto) [place] % (Auto) Lymph # [place] # Seg Neutrophils % Seg Neuts % (Manual) Lymphocytes % (Manual) Monocytes % (Manual) Nucleated RBC % Seg Neutrophils # Seg Neutrophils # Man Lymphocytes # (Manual) Monocytes # (Manual) PT INR APTT D-Dimer Heparin Anti-Xa Level POC ABG pH POC ABG pCO2 POC ABG pO2 Sodium Potassium Chloride Carbon Dioxide BUN Creatinine Glucose POC Glucose 137 H 150 H 149 H Lactic Acid Calcium Phosphorus Total Bilirubin C-Reactive Protein NT-Pro-B Natriuret Pep Total Protein Albumin Urine WBC (Auto) Urine Creatinine 08/14/18 08/15/18 08/15/18 21:55 01:50 03:12 WBC 13.3 H RBC 2.79 L Hgb 9.3 L 8.4 L Hct 28.6 L 25.7 L MCV 102 H MCH 33 H MCHC RDW 16.6 H Lymph % (Auto) [place] % (Auto) Lymph # [place] # Seg Neutrophils % Seg Neuts % (Manual) Lymphocytes % (Manual) Monocytes % (Manual) Nucleated RBC % Seg Neutrophils # Seg Neutrophils # Man Lymphocytes # (Manual) Monocytes # (Manual) PT INR APTT D-Dimer Heparin Anti-Xa Level POC ABG pH POC ABG pCO2 POC ABG pO2 Sodium Potassium Chloride Carbon Dioxide BUN Creatinine Glucose POC Glucose 186 H Lactic Acid Calcium Phosphorus Total Bilirubin C-Reactive Protein NT-Pro-B Natriuret Pep Total Protein Albumin Urine WBC (Auto) Urine Creatinine 08/15/18 08/15/18 08/15/18 09:55 11:45 13:47 WBC RBC 2.38 L Hgb 8.0 L Hct 24.5 L MCV 103 H MCH 34 H MCHC RDW 16.8 H Lymph % (Auto) 4.9 L [place] % (Auto) Lymph # 0.5 L [place] # Seg Neutrophils % 88.1 H Seg Neuts % (Manual) Lymphocytes % (Manual) Monocytes % (Manual) Nucleated RBC % Seg Neutrophils # 9.6 H Seg Neutrophils # Man Lymphocytes # (Manual) Monocytes # (Manual) PT INR APTT D-Dimer Heparin Anti-Xa Level POC ABG pH POC ABG pCO2 POC ABG pO2 Sodium Potassium Chloride Carbon Dioxide BUN Creatinine Glucose POC Glucose 133 H 142 H Lactic Acid Calcium Phosphorus Total Bilirubin C-Reactive Protein NT-Pro-B Natriuret Pep Total Protein Albumin Urine WBC (Auto) Urine Creatinine 08/15/18 08/15/18 08/16/18 17:54 21:58 02:20 WBC RBC Hgb Hct MCV MCH MCHC RDW Lymph % (Auto) [place] % (Auto) Lymph # [place] # Seg Neutrophils % Seg Neuts % (Manual) Lymphocytes % (Manual) Monocytes % (Manual) Nucleated RBC % Seg Neutrophils # Seg Neutrophils # Man Lymphocytes # (Manual) Monocytes # (Manual) PT INR APTT D-Dimer Heparin Anti-Xa Level POC ABG pH POC ABG pCO2 POC ABG pO2 Sodium Potassium Chloride Carbon Dioxide BUN Creatinine Glucose POC Glucose 131 H 157 H 108 H Lactic Acid Calcium Phosphorus Total Bilirubin C-Reactive Protein NT-Pro-B Natriuret Pep Total Protein Albumin Urine WBC (Auto) Urine Creatinine 08/16/18 08/16/18 08/16/18 05:16 10:20 10:23 WBC RBC Hgb Hct MCV MCH MCHC RDW Lymph % (Auto) [place] % (Auto) Lymph # [place] # Seg Neutrophils % Seg Neuts % (Manual) Lymphocytes % (Manual) Monocytes % (Manual) Nucleated RBC % Seg Neutrophils # Seg Neutrophils # Man Lymphocytes # (Manual) Monocytes # (Manual) PT INR APTT D-Dimer Heparin Anti-Xa Level POC ABG pH POC ABG pCO2 POC ABG pO2 63 L Sodium Potassium Chloride Carbon Dioxide BUN Creatinine Glucose POC Glucose 115 H 146 H Lactic Acid Calcium Phosphorus Total Bilirubin C-Reactive Protein NT-Pro-B Natriuret Pep Total Protein Albumin Urine WBC (Auto) Urine Creatinine 08/16/18 08/16/1819 11:06 14:05 18:04 WBC RBC 2.82 L Hgb 9.2 L Hct 28.8 L MCV 102 H MCH 33 H MCHC RDW 16.4 H Lymph % (Auto) 3.8 L [place] % (Auto) Lymph # 0.4 L [place] # Seg Neutrophils % 89.5 H Seg Neuts % (Manual) Lymphocytes % (Manual) Monocytes % (Manual) Nucleated RBC % Seg Neutrophils # 9.1 H Seg Neutrophils # Man Lymphocytes # (Manual) Monocytes # (Manual) PT INR APTT D-Dimer Heparin Anti-Xa Level POC ABG pH POC ABG pCO2 POC ABG pO2 Sodium Potassium Chloride Carbon Dioxide BUN Creatinine Glucose POC Glucose 139 H 144 H Lactic Acid Calcium Phosphorus Total Bilirubin C-Reactive Protein NT-Pro-B Natriuret Pep Total Protein Albumin Urine WBC (Auto) Urine Creatinine 08/16/18 08/17/18 08/17/18 21:50 03:51 04:59 WBC RBC Hgb Hct MCV MCH MCHC RDW Lymph % (Auto) [place] % (Auto) Lymph # [place] # Seg Neutrophils % Seg Neuts % (Manual) Lymphocytes % (Manual) Monocytes % (Manual) Nucleated RBC % Seg Neutrophils # Seg Neutrophils # Man Lymphocytes # (Manual) Monocytes # (Manual) PT INR APTT D-Dimer Heparin Anti-Xa Level POC ABG pH POC ABG pCO2 POC ABG pO2 Sodium Potassium Chloride Carbon Dioxide BUN Creatinine 0.5 L Glucose 134 H POC Glucose 147 H 135 H Lactic Acid Calcium Phosphorus Total Bilirubin C-Reactive Protein NT-Pro-B Natriuret Pep Total Protein Albumin Urine WBC (Auto) Urine Creatinine 08/17/18 08/17/18 08/17/18 12:07 18:04 21:38 WBC RBC Hgb Hct MCV MCH MCHC RDW Lymph % (Auto) [place] % (Auto) Lymph # [place] # Seg Neutrophils % Seg Neuts % (Manual) Lymphocytes % (Manual) Monocytes % (Manual) Nucleated RBC % Seg Neutrophils # Seg Neutrophils # Man Lymphocytes # (Manual) Monocytes # (Manual) PT INR APTT D-Dimer Heparin Anti-Xa Level POC ABG pH POC ABG pCO2 55.6 H POC ABG pO2 65 L Sodium Potassium Chloride Carbon Dioxide BUN Creatinine Glucose POC Glucose 160 H 115 H Lactic Acid Calcium Phosphorus Total Bilirubin C-Reactive Protein NT-Pro-B Natriuret Pep Total Protein Albumin Urine WBC (Auto) Urine Creatinine 08/17/18 08/18/18 08/18/18 21:47 01:42 05:42 WBC RBC Hgb Hct MCV MCH MCHC RDW Lymph % (Auto) [place] % (Auto) Lymph # [place] # Seg Neutrophils % Seg Neuts % (Manual) Lymphocytes % (Manual) Monocytes % (Manual) Nucleated RBC % Seg Neutrophils # Seg Neutrophils # Man Lymphocytes # (Manual) Monocytes # (Manual) PT INR APTT D-Dimer Heparin Anti-Xa Level POC ABG pH POC ABG pCO2 POC ABG pO2 Sodium Potassium Chloride Carbon Dioxide BUN Creatinine Glucose POC Glucose 110 H 124 H 127 H Lactic Acid Calcium Phosphorus Total Bilirubin C-Reactive Protein NT-Pro-B Natriuret Pep Total Protein Albumin Urine WBC (Auto) Urine Creatinine 08/18/18 08/18/18 08/18/18 09:51 14:37 21:37 WBC RBC Hgb Hct MCV MCH MCHC RDW Lymph % (Auto) [place] % (Auto) Lymph # [place] # Seg Neutrophils % Seg Neuts % (Manual) Lymphocytes % (Manual) Monocytes % (Manual) Nucleated RBC % Seg Neutrophils # Seg Neutrophils # Man Lymphocytes # (Manual) Monocytes # (Manual) PT INR APTT D-Dimer Heparin Anti-Xa Level POC ABG pH POC ABG pCO2 POC ABG pO2 Sodium Potassium Chloride Carbon Dioxide BUN Creatinine Glucose POC Glucose 162 H 130 H 133 H Lactic Acid Calcium Phosphorus Total Bilirubin C-Reactive Protein NT-Pro-B Natriuret Pep Total Protein Albumin Urine WBC (Auto) Urine Creatinine 08/19/18 08/19/18 08/19/18 01:47 04:55 04:55 WBC RBC 2.86 L Hgb 9.4 L Hct 28.6 L MCV 100 H MCH 33 H MCHC RDW 16.6 H Lymph % (Auto) [place] % (Auto) Lymph # [place] # Seg Neutrophils % Seg Neuts % (Manual) Lymphocytes % (Manual) Monocytes % (Manual) Nucleated RBC % Seg Neutrophils # Seg Neutrophils # Man Lymphocytes # (Manual) Monocytes # (Manual) PT INR APTT D-Dimer Heparin Anti-Xa Level POC ABG pH POC ABG pCO2 POC ABG pO2 Sodium Potassium Chloride 97.8 L Carbon Dioxide 32 H BUN Creatinine 0.4 L Glucose 116 H POC Glucose 136 H Lactic Acid Calcium Phosphorus Total Bilirubin C-Reactive Protein NT-Pro-B Natriuret Pep Total Protein Albumin Urine WBC (Auto) Urine Creatinine 08/19/18 08/19/18 08/19/18 05:16 05:41 11:49 WBC RBC Hgb Hct MCV MCH MCHC RDW Lymph % (Auto) [place] % (Auto) Lymph # [place] # Seg Neutrophils % Seg Neuts % (Manual) Lymphocytes % (Manual) Monocytes % (Manual) Nucleated RBC % Seg Neutrophils # Seg Neutrophils # Man Lymphocytes # (Manual) Monocytes # (Manual) PT INR APTT D-Dimer Heparin Anti-Xa Level POC ABG pH POC ABG pCO2 57.5 H POC ABG pO2 65 L Sodium Potassium Chloride Carbon Dioxide BUN Creatinine Glucose POC Glucose 119 H 143 H Lactic Acid Calcium Phosphorus Total Bilirubin C-Reactive Protein NT-Pro-B Natriuret Pep Total Protein Albumin Urine WBC (Auto) Urine Creatinine 08/19/18 08/19/18 08/20/18 15:13 21:45 06:03 WBC RBC Hgb Hct MCV MCH MCHC RDW Lymph % (Auto) [place] % (Auto) Lymph # [place] # Seg Neutrophils % Seg Neuts % (Manual) Lymphocytes % (Manual) Monocytes % (Manual) Nucleated RBC % Seg Neutrophils # Seg Neutrophils # Man Lymphocytes # (Manual) Monocytes # (Manual) PT INR APTT D-Dimer Heparin Anti-Xa Level POC ABG pH POC ABG pCO2 POC ABG pO2 Sodium Potassium Chloride Carbon Dioxide BUN Creatinine Glucose POC Glucose 155 H 127 H 160 H Lactic Acid Calcium Phosphorus Total Bilirubin C-Reactive Protein NT-Pro-B Natriuret Pep Total Protein Albumin Urine WBC (Auto) Urine Creatinine 08/20/18 12:00 WBC RBC Hgb Hct MCV MCH MCHC RDW Lymph % (Auto) [place] % (Auto) Lymph # [place] # Seg Neutrophils % Seg Neuts % (Manual) Lymphocytes % (Manual) Monocytes % (Manual) Nucleated RBC % Seg Neutrophils # Seg Neutrophils # Man Lymphocytes # (Manual) Monocytes # (Manual) PT INR APTT D-Dimer Heparin Anti-Xa Level POC ABG pH POC ABG pCO2 POC ABG pO2 Sodium Potassium Chloride Carbon Dioxide BUN Creatinine Glucose POC Glucose 143 H Lactic Acid Calcium Phosphorus Total Bilirubin C-Reactive Protein NT-Pro-B Natriuret Pep Total Protein Albumin Urine WBC (Auto) Urine Creatinine Allied health notes reviewed: nursing
[2018-08-20] MEDS: LANTUS SUB-Q SCH (23:12)
[2018-08-21] MEDS: HumaLOG SUB-Q SCH ×2 (05:29→17:51)
[2018-08-21] MEDS: MAXIPIME/NS 2 GM/100 ML 2 GM/100 ML BAG IV SCH ×3 (05:30→22:06)
[2018-08-21] MEDS: PULMICORT IH SCH ×2 (07:51→19:55)
[2018-08-21] MEDS: BROVANA NEBU IH SCH ×2 (07:51→19:55)
[2018-08-21] MEDS: CORDARONE PO SCH ×2 (10:49→22:08)
[2018-08-21] MEDS: ELIQUIS PO SCH ×2 (10:49→22:08)
[2018-08-21] MEDS: PRAVACHOL PO SCH (10:50)
[2018-08-21] MEDS: PEPCID PO SCH ×2 (10:50→22:08)
[2018-08-21] MEDS: VITAMIN B-12 PO SCH (10:51)
[2018-08-21] MEDS: SODIUM CHLORIDE FLUSH SYRINGE 10 ML IV SCH ×2 (10:51→22:07)
--- NOTE | 2018-08-21 12:23 | Progress Note ---
Assessment and Plan Acute hypoxemic respiratory failure, on mechanical ventilatory support. Atrial fibrillation with rapid ventricular response. Possible congestive heart failure with an acute exacerbation. 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 Elevated D-dimer. Leukocytosis. Sepsis syndrome with hypotension and fevers this morning. Chronic obstructive lung disease with an acute exacerbation. Hypernatremia Peripheral vascular disease. Mixed acidosis, respiratory and metabolic. Acute kidney injury. Lactic acidosis. Elevated BNP level of 3913. History of hypertension. History of arthritis. - continue RTC t-piece as tolerated henceforth - continue seroquel at current dose - hypernatremia resolved - continue Lantus insulin with SSI for glycemic control - tapered off solumedrol - PT/OT evaluation ongoing (up in chair daily) - continue enteral nutrition as tolerated - swallow evaluation - continue supplemental oxygen to keep sats >/= 90% - continue aspiration precautions - continue bronchodilators with routine trach care and pulmonary hygiene per RT - continue therapeutic anticoagulation - continue stress ulcer prophylaxis - complete Antibiotics course - continue mobility protocol for pressure ulcer prevention - continue pother care per attending / other consultants - d/c planning for LTAC care is appropriate .... re-evaluate in am & prn ... care plan discussed with patient and caregiver in room FULL CODE STATUS Subjective Date of service: 08/21/18 Principal diagnosis: Acute hypoxemic respiratory failure; A-fib with RVR; Possible CHF; H/O DVT Interval history: Patient is seen today for: Acute hypoxemic respiratory failure on MVS; Atrial fibrillation with RVR; Possible congestive heart failure with an acute exacerbation; History of deep venous thrombosis; Elevated D-dimer. Seen and examined at bedside; 24hour events reviewed; nursing and respiratory care staff consulted; no adverse overnight events reported to me; remains on T- piece; denies acute chest pains or palpitations; No N/V/F/C Objective Vital Signs - 12hr 08/21/18 08/21/18 08/21/18 01:00 02:00 03:00 Temperature Pulse Rate 78 81 77 Pulse Rate [ Bilateral] Pulse Rate [ From Monitor] Respiratory 29 H 21 29 H Rate Respiratory Rate [Bilateral ] Blood Pressure 110/61 111/65 109/59 O2 Sat by Pulse 94 Oximetry 08/21/18 08/21/18 08/21/18 04:00 05:00 06:00 Temperature 98.7 F Pulse Rate 80 71 75 Pulse Rate [ Bilateral] Pulse Rate [ 77 From Monitor] Respiratory 23 26 H 28 H Rate Respiratory Rate [Bilateral ] Blood Pressure 121/65 130/61 134/55 O2 Sat by Pulse 93 93 Oximetry 08/21/18 08/21/18 08/21/18 08:00 08:10 09:43 Temperature Pulse Rate Pulse Rate [ 75 77 Bilateral] Pulse Rate [ From Monitor] Respiratory Rate Respiratory 18 18 Rate [Bilateral ] Blood Pressure O2 Sat by Pulse 97 Oximetry Constitutional: appears uncomfortable, other (elderly looking CM, normocephalic and atraumatic with normal respiratory effort) Eyes: non-icteric ENT: oropharynx moist, other (s/p tracheosomy) Neck: supple, no lymphadenopathy, no JVD, other (No thyromegaly) Effort: mildly labored Ascultation: Bilateral: diminished breath sounds, rhonchi Percussion: Bilateral: not dull Cardiovascular: irregular rhythm, other (+ systolic murmur) Gastrointestinal: normoactive bowel sounds, soft, non-tender, non-distended, other (No palpable HSM) Integumentary: rash, other (upper extremity edema) Extremities: no cyanosis, pink and warm, pulses normal, no ischemia or petechiae Neurologic: normal mental status, non-focal exam (grossly), pupils equal and round, CN II-XII normal, other (moves all extemities) Psychiatric: mood appropriate, affect normal CBC and BMP: 08/23/18 04:37 08/23/18 04:37 ABG, PT/INR, D-dimer: ABG POC ABG pH 7.370 (7.35-7.45) 08/19/18 05:16 POC ABG pCO2 57.5 (35-45) H 08/19/18 05:16 POC ABG pO2 65 (80-105) L 08/19/18 05:16 POC ABG HCO3 33.2 08/19/18 05:16 POC ABG Total CO2 35 08/19/18 05:16 POC ABG O2 Sat 91 08/19/18 05:16 PT/INR, D-dimer PT 13.4 Sec. (12.2-14.9) 08/07/18 15:08 INR 0.98 (0.87-1.13) 08/07/18 15:08 D-Dimer 798.17 ng/mlDDU (0-234) H 07/27/18 15:52 Abnormal lab findings: Abnormal Labs 07/27/18 07/27/18 07/27/18 12:59 12:59 12:59 WBC 15.8 H RBC Hgb Hct MCV 104 H MCH 34 H MCHC RDW 16.3 H Lymph % (Auto) Garza % (Auto) Lymph # Garza # Seg Neutrophils % Seg Neuts % (Manual) 88.0 H Lymphocytes % (Manual) 3.0 L Monocytes % (Manual) Nucleated RBC % Seg Neutrophils # Seg Neutrophils # Man 13.9 H Lymphocytes # (Manual) 0.5 L Monocytes # (Manual) PT 17.0 H INR 1.34 H APTT D-Dimer Heparin Anti-Xa Level POC ABG pH POC ABG pCO2 POC ABG pO2 Sodium Potassium Chloride Carbon Dioxide 21 L BUN 38 H Creatinine 1.6 H Glucose POC Glucose Lactic Acid Calcium Phosphorus Total Bilirubin 1.30 H C-Reactive Protein NT-Pro-B Natriuret Pep 3913 H Total Protein 6.2 L Albumin 3.6 L Urine WBC (Auto) Urine Creatinine 07/27/18 07/27/18 07/27/18 15:52 16:12 17:09 WBC RBC Hgb Hct MCV MCH MCHC RDW Lymph % (Auto) Garza % (Auto) Lymph # Garza # Seg Neutrophils % Seg Neuts % (Manual) Lymphocytes % (Manual) Monocytes % (Manual) Nucleated RBC % Seg Neutrophils # Seg Neutrophils # Man Lymphocytes # (Manual) Monocytes # (Manual) PT 16.0 H INR 1.24 H APTT D-Dimer 798.17 H Heparin Anti-Xa Level POC ABG pH POC ABG pCO2 POC ABG pO2 Sodium Potassium Chloride Carbon Dioxide BUN Creatinine Glucose POC Glucose Lactic Acid 5.00 H* Calcium Phosphorus Total Bilirubin C-Reactive Protein NT-Pro-B Natriuret Pep Total Protein Albumin Urine WBC (Auto) Urine Creatinine 07/27/18 07/27/18 07/27/18 17:59 18:07 21:31 WBC RBC Hgb Hct MCV MCH MCHC RDW Lymph % (Auto) Garza % (Auto) Lymph # Garza # Seg Neutrophils % Seg Neuts % (Manual) Lymphocytes % (Manual) Monocytes % (Manual) Nucleated RBC % Seg Neutrophils # Seg Neutrophils # Man Lymphocytes # (Manual) Monocytes # (Manual) PT INR APTT D-Dimer Heparin Anti-Xa Level POC ABG pH 7.344 L POC ABG pCO2 POC ABG pO2 36 L Sodium Potassium Chloride Carbon Dioxide BUN Creatinine Glucose POC Glucose Lactic Acid 5.20 H* 5.00 H* Calcium Phosphorus Total Bilirubin C-Reactive Protein NT-Pro-B Natriuret Pep Total Protein Albumin Urine WBC (Auto) Urine Creatinine 07/27/18 07/27/18 07/27/18 21:57 22:42 23:26 WBC RBC Hgb Hct MCV MCH MCHC RDW Lymph % (Auto) Garza % (Auto) Lymph # Garza # Seg Neutrophils % Seg Neuts % (Manual) Lymphocytes % (Manual) Monocytes % (Manual) Nucleated RBC % Seg Neutrophils # Seg Neutrophils # Man Lymphocytes # (Manual) Monocytes # (Manual) PT INR APTT D-Dimer Heparin Anti-Xa Level POC ABG pH 7.199 L POC ABG pCO2 62.0 H POC ABG pO2 Sodium Potassium Chloride Carbon Dioxide BUN Creatinine Glucose POC Glucose Lactic Acid 4.70 H* 5.00 H* Calcium Phosphorus Total Bilirubin C-Reactive Protein NT-Pro-B Natriuret Pep Total Protein Albumin Urine WBC (Auto) Urine Creatinine 07/28/18 07/28/18 07/28/18 00:45 05:40 05:58 WBC RBC Hgb Hct MCV MCH MCHC RDW Lymph % (Auto) Garza % (Auto) Lymph # Garza # Seg Neutrophils % Seg Neuts % (Manual) Lymphocytes % (Manual) Monocytes % (Manual) Nucleated RBC % Seg Neutrophils # Seg Neutrophils # Man Lymphocytes # (Manual) Monocytes # (Manual) PT INR APTT D-Dimer Heparin Anti-Xa Level 0.11 L POC ABG pH 7.186 L POC ABG pCO2 60.1 H POC ABG pO2 68 L Sodium Potassium Chloride Carbon Dioxide BUN Creatinine Glucose POC Glucose Lactic Acid 4.70 H* Calcium Phosphorus Total Bilirubin C-Reactive Protein NT-Pro-B Natriuret Pep Total Protein Albumin Urine WBC (Auto) Urine Creatinine 07/28/18 07/28/18 07/28/18 06:01 06:01 07:19 WBC 12.5 H RBC 3.51 L Hgb 11.5 L Hct MCV 104 H MCH 33 H MCHC RDW 16.6 H Lymph % (Auto) Garza % (Auto) Lymph # Garza # Seg Neutrophils % Seg Neuts % (Manual) Lymphocytes % (Manual) Monocytes % (Manual) Nucleated RBC % Seg Neutrophils # Seg Neutrophils # Man Lymphocytes # (Manual) Monocytes # (Manual) PT INR APTT D-Dimer Heparin Anti-Xa Level 0.14 L POC ABG pH POC ABG pCO2 POC ABG pO2 Sodium 135 L Potassium 5.1 H Chloride 95.0 L Carbon Dioxide 21 L BUN 54 H Creatinine 2.6 H D Glucose POC Glucose Lactic Acid Calcium Phosphorus Total Bilirubin C-Reactive Protein NT-Pro-B Natriuret Pep Total Protein Albumin Urine WBC (Auto) Urine Creatinine 07/28/18 07/28/18 07/28/18 07:19 09:20 11:06 WBC RBC Hgb Hct MCV MCH MCHC RDW Lymph % (Auto) Garza % (Auto) Lymph # Garza # Seg Neutrophils % Seg Neuts % (Manual) Lymphocytes % (Manual) Monocytes % (Manual) Nucleated RBC % Seg Neutrophils # Seg Neutrophils # Man Lymphocytes # (Manual) Monocytes # (Manual) PT INR APTT D-Dimer Heparin Anti-Xa Level POC ABG pH 7.266 L POC ABG pCO2 49.7 H POC ABG pO2 74 L Sodium Potassium Chloride Carbon Dioxide BUN Creatinine Glucose POC Glucose Lactic Acid 4.00 H* 3.90 H* Calcium Phosphorus Total Bilirubin C-Reactive Protein NT-Pro-B Natriuret Pep Total Protein Albumin Urine WBC (Auto) Urine Creatinine 07/28/18 07/28/18 07/28/18 15:06 20:45 23:36 WBC RBC Hgb Hct MCV MCH MCHC RDW Lymph % (Auto) Garza % (Auto) Lymph # Garza # Seg Neutrophils % Seg Neuts % (Manual) Lymphocytes % (Manual) Monocytes % (Manual) Nucleated RBC % Seg Neutrophils # Seg Neutrophils # Man Lymphocytes # (Manual) Monocytes # (Manual) PT INR APTT D-Dimer Heparin Anti-Xa Level 0.15 L POC ABG pH POC ABG pCO2 POC ABG pO2 Sodium 134 L Potassium 5.2 H Chloride Carbon Dioxide BUN 58 H Creatinine 2.1 H Glucose 110 H POC Glucose 125 H Lactic Acid Calcium Phosphorus Total Bilirubin C-Reactive Protein NT-Pro-B Natriuret Pep Total Protein Albumin Urine WBC (Auto) Urine Creatinine 07/29/18 07/29/18 07/29/18 01:12 04:21 04:21 WBC RBC 3.21 L Hgb 10.8 L Hct 33.0 L MCV 103 H MCH 34 H MCHC RDW 16.4 H Lymph % (Auto) Garza % (Auto) Lymph # Garza # Seg Neutrophils % Seg Neuts % (Manual) Lymphocytes % (Manual) 11.0 L Monocytes % (Manual) Nucleated RBC % Seg Neutrophils # Seg Neutrophils # Man Lymphocytes # (Manual) 1.0 L Monocytes # (Manual) PT INR APTT D-Dimer Heparin Anti-Xa Level 0.21 L POC ABG pH POC ABG pCO2 POC ABG pO2 Sodium Potassium Chloride Carbon Dioxide BUN 48 H Creatinine 1.6 H Glucose 166 H POC Glucose Lactic Acid Calcium Phosphorus Total Bilirubin C-Reactive Protein NT-Pro-B Natriuret Pep Total Protein Albumin Urine WBC (Auto) Urine Creatinine 07/29/18 07/29/18 07/29/18 05:19 08:16 09:24 WBC RBC Hgb Hct MCV MCH MCHC RDW Lymph % (Auto) Garza % (Auto) Lymph # Garza # Seg Neutrophils % Seg Neuts % (Manual) Lymphocytes % (Manual) Monocytes % (Manual) Nucleated RBC % Seg Neutrophils # Seg Neutrophils # Man Lymphocytes # (Manual) Monocytes # (Manual) PT INR APTT D-Dimer Heparin Anti-Xa Level 0.25 L POC ABG pH POC ABG pCO2 POC ABG pO2 Sodium Potassium Chloride Carbon Dioxide BUN Creatinine Glucose POC Glucose 181 H Lactic Acid Calcium Phosphorus Total Bilirubin C-Reactive Protein NT-Pro-B Natriuret Pep Total Protein Albumin Urine WBC (Auto) 29.0 H Urine Creatinine 07/29/18 07/29/18 07/29/18 09:24 10:00 15:03 WBC RBC Hgb Hct MCV MCH MCHC RDW Lymph % (Auto) Garza % (Auto) Lymph # Garza # Seg Neutrophils % Seg Neuts % (Manual) Lymphocytes % (Manual) Monocytes % (Manual) Nucleated RBC % Seg Neutrophils # Seg Neutrophils # Man Lymphocytes # (Manual) Monocytes # (Manual) PT INR APTT D-Dimer Heparin Anti-Xa Level POC ABG pH POC ABG pCO2 POC ABG pO2 Sodium Potassium Chloride Carbon Dioxide BUN Creatinine Glucose POC Glucose 195 H 167 H Lactic Acid Calcium Phosphorus Total Bilirubin C-Reactive Protein NT-Pro-B Natriuret Pep Total Protein Albumin Urine WBC (Auto) Urine Creatinine 72.3 H 07/29/18 07/29/18 07/30/18 17:51 21:32 01:38 WBC RBC Hgb Hct MCV MCH MCHC RDW Lymph % (Auto) Garza % (Auto) Lymph # Garza # Seg Neutrophils % Seg Neuts % (Manual) Lymphocytes % (Manual) Monocytes % (Manual) Nucleated RBC % Seg Neutrophils # Seg Neutrophils # Man Lymphocytes # (Manual) Monocytes # (Manual) PT INR APTT D-Dimer Heparin Anti-Xa Level POC ABG pH POC ABG pCO2 POC ABG pO2 Sodium Potassium Chloride Carbon Dioxide BUN Creatinine Glucose POC Glucose 167 H 217 H 194 H Lactic Acid Calcium Phosphorus Total Bilirubin C-Reactive Protein NT-Pro-B Natriuret Pep Total Protein Albumin Urine WBC (Auto) Urine Creatinine 07/30/18 07/30/18 07/30/18 03:21 05:13 10:18 WBC RBC Hgb Hct MCV MCH MCHC RDW Lymph % (Auto) Garza % (Auto) Lymph # Garza # Seg Neutrophils % Seg Neuts % (Manual) Lymphocytes % (Manual) Monocytes % (Manual) Nucleated RBC % Seg Neutrophils # Seg Neutrophils # Man Lymphocytes # (Manual) Monocytes # (Manual) PT INR APTT D-Dimer Heparin Anti-Xa Level POC ABG pH POC ABG pCO2 50.3 H POC ABG pO2 78 L Sodium Potassium Chloride Carbon Dioxide BUN 41 H Creatinine Glucose 202 H POC Glucose 151 H Lactic Acid Calcium Phosphorus Total Bilirubin C-Reactive Protein NT-Pro-B Natriuret Pep Total Protein Albumin Urine WBC (Auto) Urine Creatinine 07/30/18 07/30/18 07/30/18 11:29 16:28 18:12 WBC RBC Hgb Hct MCV MCH MCHC RDW Lymph % (Auto) Garza % (Auto) Lymph # Garza # Seg Neutrophils % Seg Neuts % (Manual) Lymphocytes % (Manual) Monocytes % (Manual) Nucleated RBC % Seg Neutrophils # Seg Neutrophils # Man Lymphocytes # (Manual) Monocytes # (Manual) PT INR APTT D-Dimer Heparin Anti-Xa Level POC ABG pH 7.326 L POC ABG pCO2 53.2 H POC ABG pO2 70 L Sodium Potassium Chloride Carbon Dioxide BUN Creatinine Glucose POC Glucose 247 H 212 H Lactic Acid Calcium Phosphorus Total Bilirubin C-Reactive Protein NT-Pro-B Natriuret Pep Total Protein Albumin Urine WBC (Auto) Urine Creatinine 07/30/18 07/30/18 07/31/18 20:08 21:52 01:59 WBC RBC Hgb Hct MCV MCH MCHC RDW Lymph % (Auto) Garza % (Auto) Lymph # Garza # Seg Neutrophils % Seg Neuts % (Manual) Lymphocytes % (Manual) Monocytes % (Manual) Nucleated RBC % Seg Neutrophils # Seg Neutrophils # Man Lymphocytes # (Manual) Monocytes # (Manual) PT INR APTT D-Dimer Heparin Anti-Xa Level POC ABG pH POC ABG pCO2 POC ABG pO2 Sodium Potassium Chloride Carbon Dioxide BUN Creatinine Glucose POC Glucose 205 H 215 H 242 H Lactic Acid Calcium Phosphorus Total Bilirubin C-Reactive Protein NT-Pro-B Natriuret Pep Total Protein Albumin Urine WBC (Auto) Urine Creatinine 07/31/18 07/31/18 07/31/18 03:14 03:14 04:55 WBC RBC Hgb 10.6 L Hct 33.2 L MCV MCH MCHC RDW Lymph % (Auto) Garza % (Auto) Lymph # Garza # Seg Neutrophils % Seg Neuts % (Manual) Lymphocytes % (Manual) Monocytes % (Manual) Nucleated RBC % Seg Neutrophils # Seg Neutrophils # Man Lymphocytes # (Manual) Monocytes # (Manual) PT INR APTT D-Dimer Heparin Anti-Xa Level POC ABG pH 7.331 L POC ABG pCO2 67.1 H POC ABG pO2 Sodium Potassium Chloride Carbon Dioxide BUN 36 H Creatinine 0.7 L Glucose 242 H POC Glucose Lactic Acid Calcium 10.3 H Phosphorus 2.30 L Total Bilirubin C-Reactive Protein NT-Pro-B Natriuret Pep Total Protein Albumin Urine WBC (Auto) Urine Creatinine 07/31/18 07/31/18 07/31/18 05:37 10:08 14:07 WBC RBC Hgb Hct MCV MCH MCHC RDW Lymph % (Auto) Garza % (Auto) Lymph # Garza # Seg Neutrophils % Seg Neuts % (Manual) Lymphocytes % (Manual) Monocytes % (Manual) Nucleated RBC % Seg Neutrophils # Seg Neutrophils # Man Lymphocytes # (Manual) Monocytes # (Manual) PT INR APTT D-Dimer Heparin Anti-Xa Level POC ABG pH POC ABG pCO2 POC ABG pO2 Sodium Potassium Chloride Carbon Dioxide BUN Creatinine Glucose POC Glucose 193 H 247 H 225 H Lactic Acid Calcium Phosphorus Total Bilirubin C-Reactive Protein NT-Pro-B Natriuret Pep Total Protein Albumin Urine WBC (Auto) Urine Creatinine 07/31/18 07/31/18 08/01/18 18:12 21:34 02:00 WBC RBC Hgb Hct MCV MCH MCHC RDW Lymph % (Auto) Garza % (Auto) Lymph # Garza # Seg Neutrophils % Seg Neuts % (Manual) Lymphocytes % (Manual) Monocytes % (Manual) Nucleated RBC % Seg Neutrophils # Seg Neutrophils # Man Lymphocytes # (Manual) Monocytes # (Manual) PT INR APTT D-Dimer Heparin Anti-Xa Level POC ABG pH POC ABG pCO2 POC ABG pO2 Sodium Potassium Chloride Carbon Dioxide BUN Creatinine Glucose POC Glucose 197 H 204 H 239 H Lactic Acid Calcium Phosphorus Total Bilirubin C-Reactive Protein NT-Pro-B Natriuret Pep Total Protein Albumin Urine WBC (Auto) Urine Creatinine 08/01/18 08/01/18 08/01/18 04:13 04:37 05:29 WBC RBC Hgb Hct MCV MCH MCHC RDW Lymph % (Auto) Garza % (Auto) Lymph # Garza # Seg Neutrophils % Seg Neuts % (Manual) Lymphocytes % (Manual) Monocytes % (Manual) Nucleated RBC % Seg Neutrophils # Seg Neutrophils # Man Lymphocytes # (Manual) Monocytes # (Manual) PT INR APTT D-Dimer Heparin Anti-Xa Level POC ABG pH 7.296 L POC ABG pCO2 81.9 H POC ABG pO2 190 H Sodium 150 H D Potassium Chloride Carbon Dioxide 37 H D BUN 37 H Creatinine 0.6 L Glucose 223 H POC Glucose 219 H Lactic Acid Calcium Phosphorus Total Bilirubin C-Reactive Protein NT-Pro-B Natriuret Pep Total Protein Albumin Urine WBC (Auto) Urine Creatinine 08/01/18 08/01/18 08/01/18 09:28 11:00 17:36 WBC RBC Hgb Hct MCV MCH MCHC RDW Lymph % (Auto) Garza % (Auto) Lymph # Garza # Seg Neutrophils % Seg Neuts % (Manual) Lymphocytes % (Manual) Monocytes % (Manual) Nucleated RBC % Seg Neutrophils # Seg Neutrophils # Man Lymphocytes # (Manual) Monocytes # (Manual) PT INR APTT D-Dimer Heparin Anti-Xa Level POC ABG pH POC ABG pCO2 61.2 H POC ABG pO2 69 L Sodium Potassium Chloride Carbon Dioxide BUN Creatinine Glucose POC Glucose 185 H 234 H Lactic Acid Calcium Phosphorus Total Bilirubin C-Reactive Protein NT-Pro-B Natriuret Pep Total Protein Albumin Urine WBC (Auto) Urine Creatinine 08/01/18 08/02/18 08/02/18 21:54 00:08 00:44 WBC RBC Hgb Hct MCV MCH MCHC RDW Lymph % (Auto) Garza % (Auto) Lymph # Garza # Seg Neutrophils % Seg Neuts % (Manual) Lymphocytes % (Manual) Monocytes % (Manual) Nucleated RBC % Seg Neutrophils # Seg Neutrophils # Man Lymphocytes # (Manual) Monocytes # (Manual) PT INR APTT D-Dimer Heparin Anti-Xa Level 0.77 H POC ABG pH POC ABG pCO2 66.4 H POC ABG pO2 64 L Sodium Potassium Chloride Carbon Dioxide BUN Creatinine Glucose POC Glucose 242 H Lactic Acid Calcium Phosphorus Total Bilirubin C-Reactive Protein NT-Pro-B Natriuret Pep Total Protein Albumin Urine WBC (Auto) Urine Creatinine 08/02/18 08/02/18 08/02/18 02:46 04:45 04:45 WBC RBC Hgb 10.7 L Hct 33.7 L MCV MCH MCHC RDW Lymph % (Auto) Garza % (Auto) Lymph # Garza # Seg Neutrophils % Seg Neuts % (Manual) Lymphocytes % (Manual) Monocytes % (Manual) Nucleated RBC % Seg Neutrophils # Seg Neutrophils # Man Lymphocytes # (Manual) Monocytes # (Manual) PT INR APTT D-Dimer Heparin Anti-Xa Level POC ABG pH POC ABG pCO2 POC ABG pO2 Sodium 152 H Potassium Chloride 108.1 H Carbon Dioxide 39 H BUN 38 H Creatinine 0.6 L Glucose 226 H POC Glucose 206 H Lactic Acid Calcium Phosphorus Total Bilirubin C-Reactive Protein NT-Pro-B Natriuret Pep Total Protein Albumin Urine WBC (Auto) Urine Creatinine 08/02/18 08/02/18 08/02/18 05:31 09:46 14:23 WBC RBC Hgb Hct MCV MCH MCHC RDW Lymph % (Auto) Garza % (Auto) Lymph # Garza # Seg Neutrophils % Seg Neuts % (Manual) Lymphocytes % (Manual) Monocytes % (Manual) Nucleated RBC % Seg Neutrophils # Seg Neutrophils # Man Lymphocytes # (Manual) Monocytes # (Manual) PT INR APTT D-Dimer Heparin Anti-Xa Level 0.91 H POC ABG pH POC ABG pCO2 POC ABG pO2 Sodium Potassium Chloride Carbon Dioxide BUN Creatinine Glucose POC Glucose 214 H 210 H Lactic Acid Calcium Phosphorus Total Bilirubin C-Reactive Protein NT-Pro-B Natriuret Pep Total Protein Albumin Urine WBC (Auto) Urine Creatinine 08/02/18 08/02/18 08/02/18 15:46 17:56 21:50 WBC RBC Hgb Hct MCV MCH MCHC RDW Lymph % (Auto) Garza % (Auto) Lymph # Garza # Seg Neutrophils % Seg Neuts % (Manual) Lymphocytes % (Manual) Monocytes % (Manual) Nucleated RBC % Seg Neutrophils # Seg Neutrophils # Man Lymphocytes # (Manual) Monocytes # (Manual) PT INR APTT D-Dimer Heparin Anti-Xa Level 0.99 H POC ABG pH POC ABG pCO2 POC ABG pO2 Sodium Potassium Chloride Carbon Dioxide BUN Creatinine Glucose POC Glucose 252 H 222 H Lactic Acid Calcium Phosphorus Total Bilirubin C-Reactive Protein NT-Pro-B Natriuret Pep Total Protein Albumin Urine WBC (Auto) Urine Creatinine 08/03/18 08/03/18 08/03/18 02:18 05:21 05:25 WBC RBC Hgb Hct MCV MCH MCHC RDW Lymph % (Auto) Garza % (Auto) Lymph # Garza # Seg Neutrophils % Seg Neuts % (Manual) Lymphocytes % (Manual) Monocytes % (Manual) Nucleated RBC % Seg Neutrophils # Seg Neutrophils # Man Lymphocytes # (Manual) Monocytes # (Manual) PT INR APTT D-Dimer Heparin Anti-Xa Level POC ABG pH POC ABG pCO2 POC ABG pO2 Sodium 151 H Potassium Chloride 107.3 H Carbon Dioxide 37 H BUN 42 H Creatinine 0.6 L Glucose 263 H POC Glucose 241 H 241 H Lactic Acid Calcium Phosphorus Total Bilirubin C-Reactive Protein NT-Pro-B Natriuret Pep Total Protein Albumin Urine WBC (Auto) Urine Creatinine 08/03/18 08/03/18 08/03/18 09:11 12:20 14:33 WBC RBC Hgb Hct MCV MCH MCHC RDW Lymph % (Auto) Garza % (Auto) Lymph # Garza # Seg Neutrophils % Seg Neuts % (Manual) Lymphocytes % (Manual) Monocytes % (Manual) Nucleated RBC % Seg Neutrophils # Seg Neutrophils # Man Lymphocytes # (Manual) Monocytes # (Manual) PT INR APTT D-Dimer Heparin Anti-Xa Level POC ABG pH POC ABG pCO2 POC ABG pO2 Sodium Potassium Chloride Carbon Dioxide BUN Creatinine Glucose POC Glucose 272 H 234 H 247 H Lactic Acid Calcium Phosphorus Total Bilirubin C-Reactive Protein NT-Pro-B Natriuret Pep Total Protein Albumin Urine WBC (Auto) Urine Creatinine 08/03/18 08/03/18 08/04/18 16:48 21:21 01:56 WBC RBC Hgb Hct MCV MCH MCHC RDW Lymph % (Auto) Garza % (Auto) Lymph # Garza # Seg Neutrophils % Seg Neuts % (Manual) Lymphocytes % (Manual) Monocytes % (Manual) Nucleated RBC % Seg Neutrophils # Seg Neutrophils # Man Lymphocytes # (Manual) Monocytes # (Manual) PT INR APTT D-Dimer Heparin Anti-Xa Level POC ABG pH POC ABG pCO2 POC ABG pO2 Sodium Potassium Chloride Carbon Dioxide BUN Creatinine Glucose POC Glucose 180 H 189 H Lactic Acid Calcium Phosphorus Total Bilirubin C-Reactive Protein 2.30 H NT-Pro-B Natriuret Pep Total Protein Albumin Urine WBC (Auto) Urine Creatinine 08/04/18 08/04/18 08/04/18 01:58 05:05 05:05 WBC 25.5 H RBC 3.31 L Hgb 10.8 L Hct 34.1 L MCV 103 H MCH 33 H MCHC RDW 16.0 H Lymph % (Auto) Garza % (Auto) Lymph # Garza # Seg Neutrophils % Seg Neuts % (Manual) Lymphocytes % (Manual) 8.0 L Monocytes % (Manual) Nucleated RBC % 2.0 H Seg Neutrophils # Seg Neutrophils # Man 16.3 H Lymphocytes # (Manual) Monocytes # (Manual) 1.0 H PT INR APTT D-Dimer Heparin Anti-Xa Level 0.79 H POC ABG pH POC ABG pCO2 POC ABG pO2 Sodium 148 H Potassium Chloride Carbon Dioxide 36 H BUN 35 H Creatinine 0.6 L Glucose 160 H POC Glucose Lactic Acid Calcium Phosphorus Total Bilirubin C-Reactive Protein NT-Pro-B Natriuret Pep Total Protein Albumin Urine WBC (Auto) Urine Creatinine 08/04/18 08/04/18 08/04/18 05:24 05:33 08:46 WBC RBC Hgb Hct MCV MCH MCHC RDW Lymph % (Auto) Garza % (Auto) Lymph # Garza # Seg Neutrophils % Seg Neuts % (Manual) Lymphocytes % (Manual) Monocytes % (Manual) Nucleated RBC % Seg Neutrophils # Seg Neutrophils # Man Lymphocytes # (Manual) Monocytes # (Manual) PT INR APTT D-Dimer Heparin Anti-Xa Level 0.76 H POC ABG pH POC ABG pCO2 65.7 H POC ABG pO2 63 L Sodium Potassium Chloride Carbon Dioxide BUN Creatinine Glucose POC Glucose 159 H Lactic Acid Calcium Phosphorus Total Bilirubin C-Reactive Protein NT-Pro-B Natriuret Pep Total Protein Albumin Urine WBC (Auto) Urine Creatinine 08/04/18 08/04/18 08/04/18 09:12 15:38 18:20 WBC RBC Hgb Hct MCV MCH MCHC RDW Lymph % (Auto) Garza % (Auto) Lymph # Garza # Seg Neutrophils % Seg Neuts % (Manual) Lymphocytes % (Manual) Monocytes % (Manual) Nucleated RBC % Seg Neutrophils # Seg Neutrophils # Man Lymphocytes # (Manual) Monocytes # (Manual) PT INR APTT D-Dimer Heparin Anti-Xa Level POC ABG pH POC ABG pCO2 POC ABG pO2 Sodium Potassium Chloride Carbon Dioxide BUN Creatinine Glucose POC Glucose 140 H 267 H 252 H Lactic Acid Calcium Phosphorus Total Bilirubin C-Reactive Protein NT-Pro-B Natriuret Pep Total Protein Albumin Urine WBC (Auto) Urine Creatinine 08/04/18 08/05/18 08/05/18 21:17 02:51 04:36 WBC RBC Hgb Hct MCV MCH MCHC RDW Lymph % (Auto) Garza % (Auto) Lymph # Garza # Seg Neutrophils % Seg Neuts % (Manual) Lymphocytes % (Manual) Monocytes % (Manual) Nucleated RBC % Seg Neutrophils # Seg Neutrophils # Man Lymphocytes # (Manual) Monocytes # (Manual) PT INR APTT D-Dimer Heparin Anti-Xa Level POC ABG pH POC ABG pCO2 POC ABG pO2 Sodium Potassium Chloride Carbon Dioxide BUN Creatinine Glucose POC Glucose 181 H 240 H 255 H Lactic Acid Calcium Phosphorus Total Bilirubin C-Reactive Protein NT-Pro-B Natriuret Pep Total Protein Albumin Urine WBC (Auto) Urine Creatinine 08/05/18 08/05/18 08/05/18 04:55 10:21 12:39 WBC 21.8 H RBC 3.18 L Hgb 10.3 L Hct 32.6 L MCV 103 H MCH 33 H MCHC RDW 16.3 H Lymph % (Auto) Garza % (Auto) Lymph # Garza # Seg Neutrophils % Seg Neuts % (Manual) 88.0 H Lymphocytes % (Manual) 4.0 L Monocytes % (Manual) Nucleated RBC % Seg Neutrophils # Seg Neutrophils # Man 19.2 H Lymphocytes # (Manual) 0.9 L Monocytes # (Manual) PT INR APTT D-Dimer Heparin Anti-Xa Level POC ABG pH 7.506 H POC ABG pCO2 56.0 H POC ABG pO2 63 L Sodium Potassium Chloride Carbon Dioxide BUN Creatinine Glucose POC Glucose 227 H Lactic Acid Calcium Phosphorus Total Bilirubin C-Reactive Protein NT-Pro-B Natriuret Pep Total Protein Albumin Urine WBC (Auto) Urine Creatinine 08/05/18 08/05/18 08/05/18 12:39 14:10 17:30 WBC RBC Hgb Hct MCV MCH MCHC RDW Lymph % (Auto) Garza % (Auto) Lymph # Garza # Seg Neutrophils % Seg Neuts % (Manual) Lymphocytes % (Manual) Monocytes % (Manual) Nucleated RBC % Seg Neutrophils # Seg Neutrophils # Man Lymphocytes # (Manual) Monocytes # (Manual) PT INR APTT D-Dimer Heparin Anti-Xa Level < 0.10 L POC ABG pH POC ABG pCO2 POC ABG pO2 Sodium Potassium Chloride 96.8 L Carbon Dioxide 38 H BUN 36 H Creatinine 0.6 L Glucose 218 H POC Glucose 221 H Lactic Acid Calcium Phosphorus Total Bilirubin C-Reactive Protein NT-Pro-B Natriuret Pep Total Protein Albumin Urine WBC (Auto) Urine Creatinine 08/05/18 08/05/18 08/06/18 18:32 23:32 02:26 WBC RBC Hgb Hct MCV MCH MCHC RDW Lymph % (Auto) Garza % (Auto) Lymph # Garza # Seg Neutrophils % Seg Neuts % (Manual) Lymphocytes % (Manual) Monocytes % (Manual) Nucleated RBC % Seg Neutrophils # Seg Neutrophils # Man Lymphocytes # (Manual) Monocytes # (Manual) PT INR APTT D-Dimer Heparin Anti-Xa Level POC ABG pH POC ABG pCO2 POC ABG pO2 Sodium Potassium Chloride Carbon Dioxide BUN Creatinine Glucose POC Glucose 253 H 215 H 227 H Lactic Acid Calcium Phosphorus Total Bilirubin C-Reactive Protein NT-Pro-B Natriuret Pep Total Protein Albumin Urine WBC (Auto) Urine Creatinine 08/06/18 08/06/18 08/06/18 05:17 05:17 05:32 WBC 18.9 H RBC 3.06 L Hgb 10.2 L Hct 31.3 L MCV 102 H MCH 33 H MCHC RDW 16.1 H Lymph % (Auto) Garza % (Auto) Lymph # Garza # Seg Neutrophils % Seg Neuts % (Manual) Lymphocytes % (Manual) Monocytes % (Manual) Nucleated RBC % Seg Neutrophils # Seg Neutrophils # Man Lymphocytes # (Manual) Monocytes # (Manual) PT INR APTT D-Dimer Heparin Anti-Xa Level POC ABG pH 7.468 H POC ABG pCO2 59.5 H POC ABG pO2 64 L Sodium Potassium Chloride Carbon Dioxide 37 H BUN 37 H Creatinine 0.5 L Glucose 226 H POC Glucose Lactic Acid Calcium Phosphorus Total Bilirubin C-Reactive Protein NT-Pro-B Natriuret Pep Total Protein Albumin Urine WBC (Auto) Urine Creatinine 08/06/18 08/06/18 08/06/18 10:11 15:03 17:48 WBC RBC Hgb Hct MCV MCH MCHC RDW Lymph % (Auto) Garza % (Auto) Lymph # Garza # Seg Neutrophils % Seg Neuts % (Manual) Lymphocytes % (Manual) Monocytes % (Manual) Nucleated RBC % Seg Neutrophils # Seg Neutrophils # Man Lymphocytes # (Manual) Monocytes # (Manual) PT INR APTT D-Dimer Heparin Anti-Xa Level POC ABG pH POC ABG pCO2 POC ABG pO2 Sodium Potassium Chloride Carbon Dioxide BUN Creatinine Glucose POC Glucose 207 H 229 H 188 H Lactic Acid Calcium Phosphorus Total Bilirubin C-Reactive Protein NT-Pro-B Natriuret Pep Total Protein Albumin Urine WBC (Auto) Urine Creatinine 08/06/18 08/07/18 08/07/18 22:53 01:55 05:30 WBC RBC Hgb Hct MCV MCH MCHC RDW Lymph % (Auto) Garza % (Auto) Lymph # Garza # Seg Neutrophils % Seg Neuts % (Manual) Lymphocytes % (Manual) Monocytes % (Manual) Nucleated RBC % Seg Neutrophils # Seg Neutrophils # Man Lymphocytes # (Manual) Monocytes # (Manual) PT INR APTT D-Dimer Heparin Anti-Xa Level POC ABG pH POC ABG pCO2 69.6 H POC ABG pO2 64 L Sodium Potassium Chloride Carbon Dioxide BUN Creatinine Glucose POC Glucose 146 H 143 H Lactic Acid Calcium Phosphorus Total Bilirubin C-Reactive Protein NT-Pro-B Natriuret Pep Total Protein Albumin Urine WBC (Auto) Urine Creatinine 08/07/18 08/07/18 08/07/18 09:59 14:16 15:08 WBC RBC Hgb 10.3 L Hct 32.2 L MCV MCH MCHC RDW Lymph % (Auto) Garza % (Auto) Lymph # Garza # Seg Neutrophils % Seg Neuts % (Manual) Lymphocytes % (Manual) Monocytes % (Manual) Nucleated RBC % Seg Neutrophils # Seg Neutrophils # Man Lymphocytes # (Manual) Monocytes # (Manual) PT INR APTT D-Dimer Heparin Anti-Xa Level POC ABG pH POC ABG pCO2 POC ABG pO2 Sodium Potassium Chloride Carbon Dioxide BUN Creatinine Glucose POC Glucose 188 H 223 H Lactic Acid Calcium Phosphorus Total Bilirubin C-Reactive Protein NT-Pro-B Natriuret Pep Total Protein Albumin Urine WBC (Auto) Urine Creatinine 08/07/18 08/07/18 08/07/18 15:08 17:39 22:04 WBC RBC Hgb Hct MCV MCH MCHC RDW Lymph % (Auto) Garza % (Auto) Lymph # Garza # Seg Neutrophils % Seg Neuts % (Manual) Lymphocytes % (Manual) Monocytes % (Manual) Nucleated RBC % Seg Neutrophils # Seg Neutrophils # Man Lymphocytes # (Manual) Monocytes # (Manual) PT INR APTT 23.2 L D-Dimer Heparin Anti-Xa Level POC ABG pH POC ABG pCO2 POC ABG pO2 Sodium Potassium Chloride Carbon Dioxide BUN Creatinine Glucose POC Glucose 208 H 163 H Lactic Acid Calcium Phosphorus Total Bilirubin C-Reactive Protein NT-Pro-B Natriuret Pep Total Protein Albumin Urine WBC (Auto) Urine Creatinine 08/07/18 08/08/18 08/08/18 22:30 01:57 02:09 WBC 14.6 H RBC 2.88 L Hgb 9.5 L Hct 29.9 L MCV 104 H MCH 33 H MCHC RDW 16.8 H Lymph % (Auto) Garza % (Auto) Lymph # Garza # Seg Neutrophils % Seg Neuts % (Manual) 73.0 H Lymphocytes % (Manual) 9.0 L Monocytes % (Manual) 10.0 H Nucleated RBC % Seg Neutrophils # Seg Neutrophils # Man 10.7 H Lymphocytes # (Manual) Monocytes # (Manual) 1.5 H PT INR APTT D-Dimer Heparin Anti-Xa Level 0.25 L POC ABG pH POC ABG pCO2 POC ABG pO2 Sodium Potassium Chloride Carbon Dioxide BUN Creatinine Glucose POC Glucose 120 H Lactic Acid Calcium Phosphorus Total Bilirubin C-Reactive Protein NT-Pro-B Natriuret Pep Total Protein Albumin Urine WBC (Auto) Urine Creatinine 08/08/18 08/08/18 08/08/18 02:09 04:58 05:19 WBC RBC Hgb Hct MCV MCH MCHC RDW Lymph % (Auto) Garza % (Auto) Lymph # Garza # Seg Neutrophils % Seg Neuts % (Manual) Lymphocytes % (Manual) Monocytes % (Manual) Nucleated RBC % Seg Neutrophils # Seg Neutrophils # Man Lymphocytes # (Manual) Monocytes # (Manual) PT INR APTT D-Dimer Heparin Anti-Xa Level POC ABG pH 7.461 H POC ABG pCO2 57.3 H POC ABG pO2 62 L Sodium Potassium Chloride Carbon Dioxide 39 H BUN 29 H Creatinine 0.5 L Glucose 124 H POC Glucose 139 H Lactic Acid Calcium Phosphorus Total Bilirubin C-Reactive Protein NT-Pro-B Natriuret Pep Total Protein Albumin Urine WBC (Auto) Urine Creatinine 08/08/18 08/08/18 08/08/18 10:22 14:52 16:12 WBC RBC Hgb Hct MCV MCH MCHC RDW Lymph % (Auto) Garza % (Auto) Lymph # Garza # Seg Neutrophils % Seg Neuts % (Manual) Lymphocytes % (Manual) Monocytes % (Manual) Nucleated RBC % Seg Neutrophils # Seg Neutrophils # Man Lymphocytes # (Manual) Monocytes # (Manual) PT INR APTT D-Dimer Heparin Anti-Xa Level POC ABG pH POC ABG pCO2 POC ABG pO2 Sodium Potassium Chloride Carbon Dioxide BUN Creatinine Glucose POC Glucose 169 H 149 H 136 H Lactic Acid Calcium Phosphorus Total Bilirubin C-Reactive Protein NT-Pro-B Natriuret Pep Total Protein Albumin Urine WBC (Auto) Urine Creatinine 08/09/18 08/09/18 08/09/18 02:26 03:52 03:52 WBC 15.9 H RBC 2.87 L Hgb 9.6 L Hct 30.7 L MCV 107 H MCH 34 H MCHC 31 L RDW 17.8 H Lymph % (Auto) 3.9 L Garza % (Auto) 8.1 H Lymph # 0.6 L Garza # 1.3 H Seg Neutrophils % 87.1 H Seg Neuts % (Manual) Lymphocytes % (Manual) Monocytes % (Manual) Nucleated RBC % Seg Neutrophils # 13.9 H Seg Neutrophils # Man Lymphocytes # (Manual) Monocytes # (Manual) PT INR APTT D-Dimer Heparin Anti-Xa Level 0.25 L POC ABG pH POC ABG pCO2 POC ABG pO2 Sodium Potassium Chloride Carbon Dioxide BUN Creatinine Glucose POC Glucose 126 H Lactic Acid Calcium Phosphorus Total Bilirubin C-Reactive Protein NT-Pro-B Natriuret Pep Total Protein Albumin Urine WBC (Auto) Urine Creatinine 08/09/18 08/09/18 08/09/18 03:52 05:34 06:48 WBC RBC Hgb Hct MCV MCH MCHC RDW Lymph % (Auto) Garza % (Auto) Lymph # Garza # Seg Neutrophils % Seg Neuts % (Manual) Lymphocytes % (Manual) Monocytes % (Manual) Nucleated RBC % Seg Neutrophils # Seg Neutrophils # Man Lymphocytes # (Manual) Monocytes # (Manual) PT INR APTT D-Dimer Heparin Anti-Xa Level POC ABG pH POC ABG pCO2 57.5 H POC ABG pO2 58 L Sodium Potassium Chloride Carbon Dioxide 39 H BUN 26 H Creatinine 0.5 L Glucose 128 H POC Glucose 171 H Lactic Acid Calcium Phosphorus Total Bilirubin C-Reactive Protein NT-Pro-B Natriuret Pep Total Protein Albumin Urine WBC (Auto) Urine Creatinine 08/09/18 08/09/18 08/09/18 09:28 09:36 13:44 WBC RBC Hgb Hct MCV MCH MCHC RDW Lymph % (Auto) Garza % (Auto) Lymph # Garza # Seg Neutrophils % Seg Neuts % (Manual) Lymphocytes % (Manual) Monocytes % (Manual) Nucleated RBC % Seg Neutrophils # Seg Neutrophils # Man Lymphocytes # (Manual) Monocytes # (Manual) PT INR APTT D-Dimer Heparin Anti-Xa Level 0.26 L POC ABG pH POC ABG pCO2 POC ABG pO2 Sodium Potassium Chloride Carbon Dioxide BUN Creatinine Glucose POC Glucose 183 H 184 H Lactic Acid Calcium Phosphorus Total Bilirubin C-Reactive Protein NT-Pro-B Natriuret Pep Total Protein Albumin Urine WBC (Auto) Urine Creatinine 08/09/18 08/10/18 08/10/18 17:55 04:49 05:20 WBC RBC Hgb Hct MCV MCH MCHC RDW Lymph % (Auto) Garza % (Auto) Lymph # Garza # Seg Neutrophils % Seg Neuts % (Manual) Lymphocytes % (Manual) Monocytes % (Manual) Nucleated RBC % Seg Neutrophils # Seg Neutrophils # Man Lymphocytes # (Manual) Monocytes # (Manual) PT INR APTT D-Dimer Heparin Anti-Xa Level POC ABG pH POC ABG pCO2 59.9 H POC ABG pO2 59 L Sodium Potassium Chloride Carbon Dioxide BUN Creatinine Glucose POC Glucose 148 H 59 L Lactic Acid Calcium Phosphorus Total Bilirubin C-Reactive Protein NT-Pro-B Natriuret Pep Total Protein Albumin Urine WBC (Auto) Urine Creatinine 08/10/18 08/10/18 08/10/18 05:53 17:12 21:17 WBC RBC Hgb Hct MCV MCH MCHC RDW Lymph % (Auto) Garza % (Auto) Lymph # Garza # Seg Neutrophils % Seg Neuts % (Manual) Lymphocytes % (Manual) Monocytes % (Manual) Nucleated RBC % Seg Neutrophils # Seg Neutrophils # Man Lymphocytes # (Manual) Monocytes # (Manual) PT INR APTT D-Dimer Heparin Anti-Xa Level POC ABG pH POC ABG pCO2 POC ABG pO2 Sodium Potassium Chloride Carbon Dioxide BUN Creatinine Glucose POC Glucose 128 H 110 H 109 H Lactic Acid Calcium Phosphorus Total Bilirubin C-Reactive Protein NT-Pro-B Natriuret Pep Total Protein Albumin Urine WBC (Auto) Urine Creatinine 08/11/18 08/11/18 08/11/18 00:54 02:28 04:17 WBC RBC Hgb 7.8 L Hct 24.1 L D MCV MCH MCHC RDW Lymph % (Auto) Garza % (Auto) Lymph # Garza # Seg Neutrophils % Seg Neuts % (Manual) Lymphocytes % (Manual) Monocytes % (Manual) Nucleated RBC % Seg Neutrophils # Seg Neutrophils # Man Lymphocytes # (Manual) Monocytes # (Manual) PT INR APTT D-Dimer Heparin Anti-Xa Level 0.19 L POC ABG pH POC ABG pCO2 POC ABG pO2 Sodium Potassium Chloride Carbon Dioxide BUN Creatinine Glucose POC Glucose 124 H Lactic Acid Calcium Phosphorus Total Bilirubin C-Reactive Protein NT-Pro-B Natriuret Pep Total Protein Albumin Urine WBC (Auto) Urine Creatinine 08/11/18 08/11/18 08/11/18 05:10 07:42 10:27 WBC RBC Hgb Hct MCV MCH MCHC RDW Lymph % (Auto) Garza % (Auto) Lymph # Garza # Seg Neutrophils % Seg Neuts % (Manual) Lymphocytes % (Manual) Monocytes % (Manual) Nucleated RBC % Seg Neutrophils # Seg Neutrophils # Man Lymphocytes # (Manual) Monocytes # (Manual) PT INR APTT D-Dimer Heparin Anti-Xa Level 0.20 L POC ABG pH POC ABG pCO2 POC ABG pO2 Sodium Potassium Chloride Carbon Dioxide BUN Creatinine Glucose POC Glucose 150 H 156 H Lactic Acid Calcium Phosphorus Total Bilirubin C-Reactive Protein NT-Pro-B Natriuret Pep Total Protein Albumin Urine WBC (Auto) Urine Creatinine 08/11/18 08/11/18 08/11/18 13:54 15:06 18:13 WBC RBC Hgb Hct MCV MCH MCHC RDW Lymph % (Auto) Garza % (Auto) Lymph # Garza # Seg Neutrophils % Seg Neuts % (Manual) Lymphocytes % (Manual) Monocytes % (Manual) Nucleated RBC % Seg Neutrophils # Seg Neutrophils # Man Lymphocytes # (Manual) Monocytes # (Manual) PT INR APTT D-Dimer Heparin Anti-Xa Level POC ABG pH 7.471 H POC ABG pCO2 45.5 H POC ABG pO2 79 L Sodium Potassium Chloride Carbon Dioxide BUN Creatinine Glucose POC Glucose 177 H 143 H Lactic Acid Calcium Phosphorus Total Bilirubin C-Reactive Protein NT-Pro-B Natriuret Pep Total Protein Albumin Urine WBC (Auto) Urine Creatinine 08/11/18 08/11/18 08/11/18 18:33 21:22 Unknown WBC RBC Hgb Hct MCV MCH MCHC RDW Lymph % (Auto) Garza % (Auto) Lymph # Garza # Seg Neutrophils % Seg Neuts % (Manual) Lymphocytes % (Manual) Monocytes % (Manual) Nucleated RBC % Seg Neutrophils # Seg Neutrophils # Man Lymphocytes # (Manual) Monocytes # (Manual) PT INR APTT D-Dimer Heparin Anti-Xa Level 0.29 L POC ABG pH POC ABG pCO2 POC ABG pO2 Sodium 136 L Potassium Chloride 96.5 L Carbon Dioxide 32 H D BUN Creatinine 0.5 L Glucose 186 H POC Glucose 151 H Lactic Acid Calcium Phosphorus Total Bilirubin C-Reactive Protein NT-Pro-B Natriuret Pep Total Protein Albumin Urine WBC (Auto) Urine Creatinine 08/11/18 08/12/18 08/12/18 Unknown 02:09 05:29 WBC 12.1 H RBC 2.50 L Hgb 8.2 L Hct 25.7 L MCV 103 H MCH 33 H MCHC RDW 17.0 H Lymph % (Auto) 5.1 L Garza % (Auto) 9.5 H Lymph # 0.6 L Garza # 1.2 H Seg Neutrophils % 84.8 H Seg Neuts % (Manual) Lymphocytes % (Manual) Monocytes % (Manual) Nucleated RBC % Seg Neutrophils # 10.3 H Seg Neutrophils # Man Lymphocytes # (Manual) Monocytes # (Manual) PT INR APTT D-Dimer Heparin Anti-Xa Level POC ABG pH POC ABG pCO2 POC ABG pO2 Sodium Potassium Chloride Carbon Dioxide BUN Creatinine Glucose POC Glucose 159 H 136 H Lactic Acid Calcium Phosphorus Total Bilirubin C-Reactive Protein NT-Pro-B Natriuret Pep Total Protein Albumin Urine WBC (Auto) Urine Creatinine 08/12/18 08/12/18 08/12/18 07:33 09:59 13:59 WBC RBC Hgb Hct MCV MCH MCHC RDW Lymph % (Auto) Garza % (Auto) Lymph # Garza # Seg Neutrophils % Seg Neuts % (Manual) Lymphocytes % (Manual) Monocytes % (Manual) Nucleated RBC % Seg Neutrophils # Seg Neutrophils # Man Lymphocytes # (Manual) Monocytes # (Manual) PT INR APTT D-Dimer Heparin Anti-Xa Level POC ABG pH POC ABG pCO2 POC ABG pO2 Sodium Potassium Chloride Carbon Dioxide BUN Creatinine Glucose POC Glucose 138 H 157 H 167 H Lactic Acid Calcium Phosphorus Total Bilirubin C-Reactive Protein NT-Pro-B Natriuret Pep Total Protein Albumin Urine WBC (Auto) Urine Creatinine 08/12/18 08/12/18 08/12/18 14:31 14:56 17:39 WBC RBC Hgb Hct MCV MCH MCHC RDW Lymph % (Auto) Garza % (Auto) Lymph # Garza # Seg Neutrophils % Seg Neuts % (Manual) Lymphocytes % (Manual) Monocytes % (Manual) Nucleated RBC % Seg Neutrophils # Seg Neutrophils # Man Lymphocytes # (Manual) Monocytes # (Manual) PT INR APTT D-Dimer Heparin Anti-Xa Level 1.18 H POC ABG pH 7.466 H POC ABG pCO2 POC ABG pO2 58 L Sodium Potassium Chloride Carbon Dioxide BUN Creatinine Glucose POC Glucose 168 H Lactic Acid Calcium Phosphorus Total Bilirubin C-Reactive Protein NT-Pro-B Natriuret Pep Total Protein Albumin Urine WBC (Auto) Urine Creatinine 08/12/18 08/13/18 08/13/18 21:38 02:17 05:20 WBC RBC Hgb 8.0 L Hct 24.5 L MCV MCH MCHC RDW Lymph % (Auto) Garza % (Auto) Lymph # Garza # Seg Neutrophils % Seg Neuts % (Manual) Lymphocytes % (Manual) Monocytes % (Manual) Nucleated RBC % Seg Neutrophils # Seg Neutrophils # Man Lymphocytes # (Manual) Monocytes # (Manual) PT INR APTT D-Dimer Heparin Anti-Xa Level POC ABG pH POC ABG pCO2 POC ABG pO2 Sodium Potassium Chloride Carbon Dioxide BUN Creatinine Glucose POC Glucose 168 H 157 H Lactic Acid Calcium Phosphorus Total Bilirubin C-Reactive Protein NT-Pro-B Natriuret Pep Total Protein Albumin Urine WBC (Auto) Urine Creatinine 08/13/18 08/13/18 08/13/18 09:28 10:07 14:09 WBC RBC Hgb Hct MCV MCH MCHC RDW Lymph % (Auto) Garza % (Auto) Lymph # Garza # Seg Neutrophils % Seg Neuts % (Manual) Lymphocytes % (Manual) Monocytes % (Manual) Nucleated RBC % Seg Neutrophils # Seg Neutrophils # Man Lymphocytes # (Manual) Monocytes # (Manual) PT INR APTT D-Dimer Heparin Anti-Xa Level POC ABG pH 7.453 H POC ABG pCO2 47.5 H POC ABG pO2 Sodium Potassium Chloride Carbon Dioxide BUN Creatinine Glucose POC Glucose 177 H 178 H Lactic Acid Calcium Phosphorus Total Bilirubin C-Reactive Protein NT-Pro-B Natriuret Pep Total Protein Albumin Urine WBC (Auto) Urine Creatinine 08/13/18 08/13/18 08/14/18 17:33 21:28 01:58 WBC RBC Hgb Hct MCV MCH MCHC RDW Lymph % (Auto) Garza % (Auto) Lymph # Garza # Seg Neutrophils % Seg Neuts % (Manual) Lymphocytes % (Manual) Monocytes % (Manual) Nucleated RBC % Seg Neutrophils # Seg Neutrophils # Man Lymphocytes # (Manual) Monocytes # (Manual) PT INR APTT D-Dimer Heparin Anti-Xa Level POC ABG pH POC ABG pCO2 POC ABG pO2 Sodium Potassium Chloride Carbon Dioxide BUN Creatinine Glucose POC Glucose 130 H 145 H 161 H Lactic Acid Calcium Phosphorus Total Bilirubin C-Reactive Protein NT-Pro-B Natriuret Pep Total Protein Albumin Urine WBC (Auto) Urine Creatinine 08/14/18 08/14/18 08/14/18 05:22 06:10 09:59 WBC RBC Hgb Hct MCV MCH MCHC RDW Lymph % (Auto) Garza % (Auto) Lymph # Garza # Seg Neutrophils % Seg Neuts % (Manual) Lymphocytes % (Manual) Monocytes % (Manual) Nucleated RBC % Seg Neutrophils # Seg Neutrophils # Man Lymphocytes # (Manual) Monocytes # (Manual) PT INR APTT D-Dimer Heparin Anti-Xa Level POC ABG pH POC ABG pCO2 POC ABG pO2 Sodium Potassium Chloride Carbon Dioxide BUN Creatinine 0.5 L Glucose 125 H POC Glucose 117 H 107 H Lactic Acid Calcium Phosphorus Total Bilirubin C-Reactive Protein NT-Pro-B Natriuret Pep Total Protein Albumin Urine WBC (Auto) Urine Creatinine 08/14/18 08/14/18 08/14/18 14:04 17:49 21:27 WBC RBC Hgb Hct MCV MCH MCHC RDW Lymph % (Auto) Garza % (Auto) Lymph # Garza # Seg Neutrophils % Seg Neuts % (Manual) Lymphocytes % (Manual) Monocytes % (Manual) Nucleated RBC % Seg Neutrophils # Seg Neutrophils # Man Lymphocytes # (Manual) Monocytes # (Manual) PT INR APTT D-Dimer Heparin Anti-Xa Level POC ABG pH POC ABG pCO2 POC ABG pO2 Sodium Potassium Chloride Carbon Dioxide BUN Creatinine Glucose POC Glucose 137 H 150 H 149 H Lactic Acid Calcium Phosphorus Total Bilirubin C-Reactive Protein NT-Pro-B Natriuret Pep Total Protein Albumin Urine WBC (Auto) Urine Creatinine 08/14/18 08/15/18 08/15/18 21:55 01:50 03:12 WBC 13.3 H RBC 2.79 L Hgb 9.3 L 8.4 L Hct 28.6 L 25.7 L MCV 102 H MCH 33 H MCHC RDW 16.6 H Lymph % (Auto) Garza % (Auto) Lymph # Garza # Seg Neutrophils % Seg Neuts % (Manual) Lymphocytes % (Manual) Monocytes % (Manual) Nucleated RBC % Seg Neutrophils # Seg Neutrophils # Man Lymphocytes # (Manual) Monocytes # (Manual) PT INR APTT D-Dimer Heparin Anti-Xa Level POC ABG pH POC ABG pCO2 POC ABG pO2 Sodium Potassium Chloride Carbon Dioxide BUN Creatinine Glucose POC Glucose 186 H Lactic Acid Calcium Phosphorus Total Bilirubin C-Reactive Protein NT-Pro-B Natriuret Pep Total Protein Albumin Urine WBC (Auto) Urine Creatinine 08/15/18 08/15/18 08/15/18 09:55 11:45 13:47 WBC RBC 2.38 L Hgb 8.0 L Hct 24.5 L MCV 103 H MCH 34 H MCHC RDW 16.8 H Lymph % (Auto) 4.9 L Garza % (Auto) Lymph # 0.5 L Garza # Seg Neutrophils % 88.1 H Seg Neuts % (Manual) Lymphocytes % (Manual) Monocytes % (Manual) Nucleated RBC % Seg Neutrophils # 9.6 H Seg Neutrophils # Man Lymphocytes # (Manual) Monocytes # (Manual) PT INR APTT D-Dimer Heparin Anti-Xa Level POC ABG pH POC ABG pCO2 POC ABG pO2 Sodium Potassium Chloride Carbon Dioxide BUN Creatinine Glucose POC Glucose 133 H 142 H Lactic Acid Calcium Phosphorus Total Bilirubin C-Reactive Protein NT-Pro-B Natriuret Pep Total Protein Albumin Urine WBC (Auto) Urine Creatinine 08/15/18 08/15/18 08/16/18 17:54 21:58 02:20 WBC RBC Hgb Hct MCV MCH MCHC RDW Lymph % (Auto) Garza % (Auto) Lymph # Garza # Seg Neutrophils % Seg Neuts % (Manual) Lymphocytes % (Manual) Monocytes % (Manual) Nucleated RBC % Seg Neutrophils # Seg Neutrophils # Man Lymphocytes # (Manual) Monocytes # (Manual) PT INR APTT D-Dimer Heparin Anti-Xa Level POC ABG pH POC ABG pCO2 POC ABG pO2 Sodium Potassium Chloride Carbon Dioxide BUN Creatinine Glucose POC Glucose 131 H 157 H 108 H Lactic Acid Calcium Phosphorus Total Bilirubin C-Reactive Protein NT-Pro-B Natriuret Pep Total Protein Albumin Urine WBC (Auto) Urine Creatinine 08/16/18 08/16/18 08/16/18 05:16 10:20 10:23 WBC RBC Hgb Hct MCV MCH MCHC RDW Lymph % (Auto) Garza % (Auto) Lymph # Garza # Seg Neutrophils % Seg Neuts % (Manual) Lymphocytes % (Manual) Monocytes % (Manual) Nucleated RBC % Seg Neutrophils # Seg Neutrophils # Man Lymphocytes # (Manual) Monocytes # (Manual) PT INR APTT D-Dimer Heparin Anti-Xa Level POC ABG pH POC ABG pCO2 POC ABG pO2 63 L Sodium Potassium Chloride Carbon Dioxide BUN Creatinine Glucose POC Glucose 115 H 146 H Lactic Acid Calcium Phosphorus Total Bilirubin C-Reactive Protein NT-Pro-B Natriuret Pep Total Protein Albumin Urine WBC (Auto) Urine Creatinine 08/16/18 08/16/18 08/16/18 11:06 14:05 18:04 WBC RBC 2.82 L Hgb 9.2 L Hct 28.8 L MCV 102 H MCH 33 H MCHC RDW 16.4 H Lymph % (Auto) 3.8 L Garza % (Auto) Lymph # 0.4 L Garza # Seg Neutrophils % 89.5 H Seg Neuts % (Manual) Lymphocytes % (Manual) Monocytes % (Manual) Nucleated RBC % Seg Neutrophils # 9.1 H Seg Neutrophils # Man Lymphocytes # (Manual) Monocytes # (Manual) PT INR APTT D-Dimer Heparin Anti-Xa Level POC ABG pH POC ABG pCO2 POC ABG pO2 Sodium Potassium Chloride Carbon Dioxide BUN Creatinine Glucose POC Glucose 139 H 144 H Lactic Acid Calcium Phosphorus Total Bilirubin C-Reactive Protein NT-Pro-B Natriuret Pep Total Protein Albumin Urine WBC (Auto) Urine Creatinine 08/16/18 08/17/18 08/17/18 21:50 03:51 04:59 WBC RBC Hgb Hct MCV MCH MCHC RDW Lymph % (Auto) Garza % (Auto) Lymph # Garza # Seg Neutrophils % Seg Neuts % (Manual) Lymphocytes % (Manual) Monocytes % (Manual) Nucleated RBC % Seg Neutrophils # Seg Neutrophils # Man Lymphocytes # (Manual) Monocytes # (Manual) PT INR APTT D-Dimer Heparin Anti-Xa Level POC ABG pH POC ABG pCO2 POC ABG pO2 Sodium Potassium Chloride Carbon Dioxide BUN Creatinine 0.5 L Glucose 134 H POC Glucose 147 H 135 H Lactic Acid Calcium Phosphorus Total Bilirubin C-Reactive Protein NT-Pro-B Natriuret Pep Total Protein Albumin Urine WBC (Auto) Urine Creatinine 08/17/18 08/17/18 08/17/18 12:07 18:04 21:38 WBC RBC Hgb Hct MCV MCH MCHC RDW Lymph % (Auto) Garza % (Auto) Lymph # Garza # Seg Neutrophils % Seg Neuts % (Manual) Lymphocytes % (Manual) Monocytes % (Manual) Nucleated RBC % Seg Neutrophils # Seg Neutrophils # Man Lymphocytes # (Manual) Monocytes # (Manual) PT INR APTT D-Dimer Heparin Anti-Xa Level POC ABG pH POC ABG pCO2 55.6 H POC ABG pO2 65 L Sodium Potassium Chloride Carbon Dioxide BUN Creatinine Glucose POC Glucose 160 H 115 H Lactic Acid Calcium Phosphorus Total Bilirubin C-Reactive Protein NT-Pro-B Natriuret Pep Total Protein Albumin Urine WBC (Auto) Urine Creatinine 08/17/18 08/18/18 08/18/18 21:47 01:42 05:42 WBC RBC Hgb Hct MCV MCH MCHC RDW Lymph % (Auto) Garza % (Auto) Lymph # Garza # Seg Neutrophils % Seg Neuts % (Manual) Lymphocytes % (Manual) Monocytes % (Manual) Nucleated RBC % Seg Neutrophils # Seg Neutrophils # Man Lymphocytes # (Manual) Monocytes # (Manual) PT INR APTT D-Dimer Heparin Anti-Xa Level POC ABG pH POC ABG pCO2 POC ABG pO2 Sodium Potassium Chloride Carbon Dioxide BUN Creatinine Glucose POC Glucose 110 H 124 H 127 H Lactic Acid Calcium Phosphorus Total Bilirubin C-Reactive Protein NT-Pro-B Natriuret Pep Total Protein Albumin Urine WBC (Auto) Urine Creatinine 08/18/18 08/18/18 08/18/18 09:51 14:37 21:37 WBC RBC Hgb Hct MCV MCH MCHC RDW Lymph % (Auto) Garza % (Auto) Lymph # Garza # Seg Neutrophils % Seg Neuts % (Manual) Lymphocytes % (Manual) Monocytes % (Manual) Nucleated RBC % Seg Neutrophils # Seg Neutrophils # Man Lymphocytes # (Manual) Monocytes # (Manual) PT INR APTT D-Dimer Heparin Anti-Xa Level POC ABG pH POC ABG pCO2 POC ABG pO2 Sodium Potassium Chloride Carbon Dioxide BUN Creatinine Glucose POC Glucose 162 H 130 H 133 H Lactic Acid Calcium Phosphorus Total Bilirubin C-Reactive Protein NT-Pro-B Natriuret Pep Total Protein Albumin Urine WBC (Auto) Urine Creatinine 08/19/18 08/19/18 08/19/18 01:47 04:55 04:55 WBC RBC 2.86 L Hgb 9.4 L Hct 28.6 L MCV 100 H MCH 33 H MCHC RDW 16.6 H Lymph % (Auto) Garza % (Auto) Lymph # Garza # Seg Neutrophils % Seg Neuts % (Manual) Lymphocytes % (Manual) Monocytes % (Manual) Nucleated RBC % Seg Neutrophils # Seg Neutrophils # Man Lymphocytes # (Manual) Monocytes # (Manual) PT INR APTT D-Dimer Heparin Anti-Xa Level POC ABG pH POC ABG pCO2 POC ABG pO2 Sodium Potassium Chloride 97.8 L Carbon Dioxide 32 H BUN Creatinine 0.4 L Glucose 116 H POC Glucose 136 H Lactic Acid Calcium Phosphorus Total Bilirubin C-Reactive Protein NT-Pro-B Natriuret Pep Total Protein Albumin Urine WBC (Auto) Urine Creatinine 08/19/18 08/19/18 08/19/18 05:16 05:41 11:49 WBC RBC Hgb Hct MCV MCH MCHC RDW Lymph % (Auto) Garza % (Auto) Lymph # Garza # Seg Neutrophils % Seg Neuts % (Manual) Lymphocytes % (Manual) Monocytes % (Manual) Nucleated RBC % Seg Neutrophils # Seg Neutrophils # Man Lymphocytes # (Manual) Monocytes # (Manual) PT INR APTT D-Dimer Heparin Anti-Xa Level POC ABG pH POC ABG pCO2 57.5 H POC ABG pO2 65 L Sodium Potassium Chloride Carbon Dioxide BUN Creatinine Glucose POC Glucose 119 H 143 H Lactic Acid Calcium Phosphorus Total Bilirubin C-Reactive Protein NT-Pro-B Natriuret Pep Total Protein Albumin Urine WBC (Auto) Urine Creatinine 08/19/18 08/19/18 08/20/18 15:13 21:45 06:03 WBC RBC Hgb Hct MCV MCH MCHC RDW Lymph % (Auto) Garza % (Auto) Lymph # Garza # Seg Neutrophils % Seg Neuts % (Manual) Lymphocytes % (Manual) Monocytes % (Manual) Nucleated RBC % Seg Neutrophils # Seg Neutrophils # Man Lymphocytes # (Manual) Monocytes # (Manual) PT INR APTT D-Dimer Heparin Anti-Xa Level POC ABG pH POC ABG pCO2 POC ABG pO2 Sodium Potassium Chloride Carbon Dioxide BUN Creatinine Glucose POC Glucose 155 H 127 H 160 H Lactic Acid Calcium Phosphorus Total Bilirubin C-Reactive Protein NT-Pro-B Natriuret Pep Total Protein Albumin Urine WBC (Auto) Urine Creatinine 08/20/18 08/20/18 08/21/18 12:00 22:10 05:32 WBC RBC Hgb Hct MCV MCH MCHC RDW Lymph % (Auto) Garza % (Auto) Lymph # Garza # Seg Neutrophils % Seg Neuts % (Manual) Lymphocytes % (Manual) Monocytes % (Manual) Nucleated RBC % Seg Neutrophils # Seg Neutrophils # Man Lymphocytes # (Manual) Monocytes # (Manual) PT INR APTT D-Dimer Heparin Anti-Xa Level POC ABG pH POC ABG pCO2 POC ABG pO2 Sodium Potassium Chloride Carbon Dioxide BUN Creatinine Glucose POC Glucose 143 H 125 H 121 H Lactic Acid Calcium Phosphorus Total Bilirubin C-Reactive Protein NT-Pro-B Natriuret Pep Total Protein Albumin Urine WBC (Auto) Urine Creatinine Allied health notes reviewed: nursing
--- NOTE | 2018-08-21 13:43 | Progress Note ---
Assessment and Plan Assessment and plan: Sepsis. Previous Blood cultures reveal Streptococcus anginosus. New sepsis, fever with leucocytosis. ID started empiric IV Cefepime and will assess response Acute kidney injury. Etiology secondary to above. Continue to monitor creatinine. Left lower lobe pneumonia. Continue antibiotics and follow repeat chest x-ray. Sputum culture revealed Pseudomonas and MSSA Acute hypoxemic respiratory failure. Etiology secondary to above. Continue on mechanical ventilation and weaning per pulmonary. Patient is status post trach and PEG on 08/11/18. Atrial fibrillation. Continue Amiodarone and Diltiazem. Cardiology following. REGAN negative. Cont. Eliquis Acute renal failure due to vasomotor nephropathy, Resolved. COPD exacerbation. Continue bronchodilators/nebulizers. IV steroids. Hypertension. Resume antihypertensive medications as needed. Hyperlipidemia. Peripheral vascular disease. Plan is for LTAC placement The high probability of a clinically significant, sudden or life threatening deterioration of the [respiratory] system(s) required my full and direct attention, intervention and personal management. The aggregate critical care time was [31] minutes. This time is in addition to time spent performing reported procedures but includes the following: [x] Data Review and interpretation [x] Patient assessment and monitoring of vital signs [x] Documentation [x] Medication orders and management History Interval history: No new complaints no more fever Hospitalist Physical - Physical exam Narrative exam: GEN: Not in acute distress, Trach HEENT: Normocephalic, atraumatic, Neck: supple, No JVD. Tracheostomy Lungs: Clear to auscultation, no wheeze Heart:S1 and S2 regular, no murmurs, rubs or gallop, Abd:soft, non tender, non distended, normal bowel sounds, PEG tube Ext: No edema, no clubbing or cyanosis Neuro: Opens eyes, - Constitutional Vitals: Temp Pulse Resp BP Pulse Ox 98.7 F 77 18 134/55 97 08/21/18 04:00 08/21/18 08:10 08/21/18 08:10 08/21/18 06:00 08/21/18 09:43 General appearance: Present: other (intubated on mechanical ventilation) Results - Labs CBC & Chem 7: 08/19/18 04:55 08/19/18 04:55 Labs: Laboratory Last Values WBC 7.8 K/mm3 (4.5-11.0) 08/19/18 04:55 RBC 2.86 M/mm3 (3.65-5.03) L 08/19/18 04:55 Hgb 9.4 gm/dl (11.8-15.2) L 08/19/18 04:55 Hct 28.6 % (35.5-45.6) L 08/19/18 04:55 MCV 100 fl (84-94) H 08/19/18 04:55 MCH 33 pg (28-32) H 08/19/18 04:55 MCHC 33 % (32-34) 08/19/18 04:55 RDW 16.6 % (13.2-15.2) H 08/19/18 04:55 Plt Count 301 K/mm3 (140-440) 08/19/18 04:55 Lymph % (Auto) 3.8 % (13.4-35.0) L 08/16/18 11:06 [place] % (Auto) 5.7 % (0.0-7.3) 08/16/18 11:06 Eos % (Auto) 0.6 % (0.0-4.3) 08/16/18 11:06 Baso % (Auto) 0.4 % (0.0-1.8) 08/16/18 11:06 Lymph # 0.4 K/mm3 (1.2-5.4) L 08/16/18 11:06 [place] # 0.6 K/mm3 (0.0-0.8) 08/16/18 11:06 Eos # 0.1 K/mm3 (0.0-0.4) 08/16/18 11:06 Baso # 0.0 K/mm3 (0.0-0.1) 08/16/18 11:06 Add Manual Diff Complete 08/08/18 02:09 Total Counted 100 08/08/18 02:09 Seg Neutrophils % 89.5 % (40.0-70.0) H 08/16/18 11:06 Seg Neuts % (Manual) 73.0 % (40.0-70.0) H 08/08/18 02:09 Band Neutrophils % 5.0 % 08/08/18 02:09 Lymphocytes % (Manual) 9.0 % (13.4-35.0) L 08/08/18 02:09 Reactive Lymphs % (Man) 0 % 08/08/18 02:09 Monocytes % (Manual) 10.0 % (0.0-7.3) H 08/08/18 02:09 Eosinophils % (Manual) 0 % (0.0-4.3) 08/08/18 02:09 Basophils % (Manual) 0 % (0.0-1.8) 08/08/18 02:09 Metamyelocytes % 3.0 % 08/08/18 02:09 Myelocytes % 0 % 08/08/18 02:09 Promyelocytes % 0 % 08/08/18 02:09 Blast Cells % 0 % 08/08/18 02:09 Nucleated RBC % Not Reportable 08/08/18 02:09 Seg Neutrophils # 9.1 K/mm3 (1.8-7.7) H 08/16/18 11:06 Seg Neutrophils # Man 10.7 K/mm3 (1.8-7.7) H 08/08/18 02:09 Band Neutrophils # 0.7 K/mm3 08/08/18 02:09 Lymphocytes # (Manual) 1.3 K/mm3 (1.2-5.4) 08/08/18 02:09 Abs React Lymphs (Man) 0.0 K/mm3 08/08/18 02:09 Monocytes # (Manual) 1.5 K/mm3 (0.0-0.8) H 08/08/18 02:09 Eosinophils # (Manual) 0.0 K/mm3 (0.0-0.4) 08/08/18 02:09 Basophils # (Manual) 0.0 K/mm3 (0.0-0.1) 08/08/18 02:09 Metamyelocytes # 0.4 K/mm3 08/08/18 02:09 Myelocytes # 0.0 K/mm3 08/08/18 02:09 Promyelocytes # 0.0 K/mm3 08/08/18 02:09 Blast Cells # 0.0 K/mm3 08/08/18 02:09 Pathologist Review 07/28/18 06:01 WBC Morphology Not Reportable 08/08/18 02:09 Hypersegmented Neuts Not Reportable 08/08/18 02:09 Hyposegmented Neuts Not Reportable 08/08/18 02:09 Hypogranular Neuts Not Reportable 08/08/18 02:09 Smudge Cells Not Reportable 08/08/18 02:09 Toxic Granulation Not Reportable 08/08/18 02:09 Toxic Vacuolation Not Reportable 08/08/18 02:09 Dohle Bodies Not Reportable 08/08/18 02:09 Pelger-Huet Anomaly Not Reportable 08/08/18 02:09 Janiya Rods Not Reportable 08/08/18 02:09 Platelet Estimate Appears normal 08/08/18 02:09 Clumped Platelets Not Reportable 08/08/18 02:09 Plt Clumps, EDTA Not Reportable 08/08/18 02:09 Large Platelets Not Reportable 08/08/18 02:09 Giant Platelets Not Reportable 08/08/18 02:09 Platelet Satelliting Not Reportable 08/08/18 02:09 Plt Morphology Comment Not Reportable 08/08/18 02:09 RBC Morphology Not Reportable 08/08/18 02:09 Dimorphic RBCs Not Reportable 08/08/18 02:09 Polychromasia Not Reportable 08/08/18 02:09 Hypochromasia Few 08/08/18 02:09 Poikilocytosis Not Reportable 08/08/18 02:09 Anisocytosis 1+ 08/08/18 02:09 Microcytosis Not Reportable 08/08/18 02:09 Macrocytosis Not Reportable 08/08/18 02:09 Spherocytes Not Reportable 08/08/18 02:09 Pappenheimer Bodies Not Reportable 08/08/18 02:09 Sickle Cells Not Reportable 08/08/18 02:09 Target Cells Not Reportable 08/08/18 02:09 Tear Drop Cells Not Reportable 08/08/18 02:09 Ovalocytes Not Reportable 08/08/18 02:09 Stomatocytes Few 08/08/18 02:09 Helmet Cells Not Reportable 08/08/18 02:09 Lr-[place] Bodies Not Reportable 08/08/18 02:09 [place] Rings Not Reportable 08/08/18 02:09 Armando Cells Not Reportable 08/08/18 02:09 Bite Cells Not Reportable 08/08/18 02:09 Crenated Cell Not Reportable 08/08/18 02:09 Elliptocytes Not Reportable 08/08/18 02:09 Acanthocytes (Spur) Not Reportable 08/08/18 02:09 Rouleaux Not Reportable 08/08/18 02:09 Hemoglobin C Crystals Not Reportable 08/08/18 02:09 Schistocytes Not Reportable 08/08/18 02:09 Malaria parasites Not Reportable 08/08/18 02:09 Jigar Bodies Not Reportable 08/08/18 02:09 Hem Pathologist Commnt No 08/08/18 02:09 PT 13.4 Sec. (12.2-14.9) 08/07/18 15:08 INR 0.98 (0.87-1.13) 08/07/18 15:08 APTT 23.2 Sec. (24.2-36.6) L 08/07/18 15:08 D-Dimer 798.17 ng/mlDDU (0-234) H 07/27/18 15:52 Heparin Anti-Xa Level 1.18 U.I./ml (0.3-0.7) H 08/12/18 14:56 POC ABG pH 7.370 (7.35-7.45) 08/19/18 05:16 POC ABG pCO2 57.5 (35-45) H 08/19/18 05:16 POC ABG pO2 65 (80-105) L 08/19/18 05:16 POC ABG HCO3 33.2 08/19/18 05:16 POC ABG Total CO2 35 08/19/18 05:16 POC ABG O2 Sat 91 08/19/18 05:16 POC ABG Base Excess 8 08/19/18 05:16 FiO2 40 % 08/19/18 05:16 Sodium 140 mmol/L (137-145) 08/19/18 04:55 Potassium 4.3 mmol/L (3.6-5.0) 08/19/18 04:55 Chloride 97.8 mmol/L (98-107) L 08/19/18 04:55 Carbon Dioxide 32 mmol/L (22-30) H 08/19/18 04:55 Anion Gap 15 mmol/L 08/19/18 04:55 BUN 12 mg/dL (9-20) 08/19/18 04:55 Creatinine 0.4 mg/dL (0.8-1.5) L 08/19/18 04:55 Estimated GFR > 60 ml/min 08/19/18 04:55 BUN/Creatinine Ratio 30 % 08/19/18 04:55 Glucose 116 mg/dL (75-100) H 08/19/18 04:55 POC Glucose 121 (70-105) H 08/21/18 05:32 Lactic Acid 1.30 mmol/L (0.7-2.0) 08/03/18 16:48 Calcium 9.0 mg/dL (8.4-10.2) 08/19/18 04:55 Phosphorus 3.30 mg/dL (2.5-4.5) 08/19/18 04:55 Magnesium 2.30 mg/dL (1.7-2.3) 08/19/18 04:55 Total Bilirubin 1.30 mg/dL (0.1-1.2) H 07/27/18 12:59 AST 15 units/L (5-40) 07/27/18 12:59 ALT 16 units/L (7-56) 07/27/18 12:59 Alkaline Phosphatase 62 units/L (35-129) 07/27/18 12:59 Troponin T < 0.010 ng/mL (0.00-0.029) 07/27/18 12:59 C-Reactive Protein 2.30 mg/dL (0.00-1.30) H 08/03/18 16:48 NT-Pro-B Natriuret Pep 3913 pg/mL (0-900) H 07/27/18 12:59 Total Protein 6.2 g/dL (6.3-8.2) L 07/27/18 12:59 Albumin 3.6 g/dL (3.9-5) L 07/27/18 12:59 Albumin/Globulin Ratio 1.4 % 07/27/18 12:59 Triglycerides 64 mg/dL (2-149) 08/08/18 14:02 TSH 1.180 mlU/mL (0.270-4.200) 07/27/18 15:52 Free T4 1.28 ng/dL (0.76-1.46) 07/27/18 15:52 Urine Color Yellow (Yellow) 08/11/18 12:50 Urine Turbidity Clear (Clear) 08/11/18 12:50 Urine pH 6.0 (5.0-7.0) 08/11/18 12:50 Ur Specific [place] 1.015 (1.003-1.030) 08/11/18 12:50 Urine Protein <15 mg/dl mg/dL (Negative) 08/11/18 12:50 Urine Glucose (UA) 50 mg/dL (Negative) 08/11/18 12:50 Urine Ketones Neg mg/dL (Negative) 08/11/18 12:50 Urine Blood Neg (Negative) 08/11/18 12:50 Urine Nitrite Neg (Negative) 08/11/18 12:50 Urine Bilirubin Neg (Negative) 08/11/18 12:50 Urine Urobilinogen 4.0 mg/dL (<2.0) 08/11/18 12:50 Ur Leukocyte Esterase Neg (Negative) 08/11/18 12:50 Urine WBC (Auto) 2.0 /HPF (0.0-6.0) 08/11/18 12:50 Urine RBC (Auto) 2.0 /HPF (0.0-6.0) 08/11/18 12:50 U Epithel Cells (Auto) 2.0 /HPF (0-13.0) 07/29/18 09:24 Urine Bacteria (Auto) 1+ /HPF (Negative) 08/11/18 12:50 Urine Mucus Few /HPF 08/11/18 12:50 Urine Yeast (Budding) 1+ /HPF 07/29/18 09:24 Urine Creatinine 72.3 mg/dL (0.1-20.0) H 07/29/18 09:24 Urine Sodium 12 mmol/L 07/29/18 09:24 Random Vancomycin 9.2 ug/mL (0-40.0) 07/29/18 04:21 Nutrition/Malnutrition Assess - Dietary Evaluation Nutrition/Malnutrition Findings: Nutrition Notes Start: 07/28/18 10:54 Freq: Status: Active Protocol: Document 08/16/18 10:40 OL (Rec: 08/16/18 10:42 OL [id number]) Nutrition Notes Initial or Follow up Reassessment Current Diagnoses Acute Kidney Injury COPD Sepsis Hypertension Heart Failure Respiratory Failure Other Pertinent Diagnosis Hx of Skin Cancer Current Diet Nepro at 50ml/hr Labs/Tests Reviewed Medications Reviewed Height 5 ft 8 in Weight 85.1 kg [place] Body Weight (lbs) 154.0 BMI 28.5 Subjective/Other Information Nepro infusing at goal rate of 50mL/hr, well tolerated Burn Absent Trauma Absent #1 Nutrition Diagnoses Inadequate oral intake Diagnosis Progress(for reassessment Continues documentation) Is patient on ventilator? Yes Is Patient Ambulatory and/or Out of Bed No REE-([facility]-confined to bed) [phone] Calculation Used for Recommendations [facility] Additional Notes protein (1.2-2g/kg): 102-170g fluid: 1mL/kcal Nutrition Intervention Change Diet Order: Continue TF Nutrition Support: Nepro at 50mL/hr 250 mL free water flush q4h or per MD. Kcal 2,160 Protein (gm) 97 Fluid (mL) 872 Goal #1 TF tolerance and rate Goal #2 Meet at least 80% of kcal needs and 80-100% of protein needs. Follow-Up By: 08/23/18 Additional Comments f/u: stable TF
--- NOTE | 2018-08-21 15:36 | Progress Note ---
Assessment and Plan Cultures: 07/27/2018 tracheal aspirate culture: Pseudomonas aeruginosa, MSSA 07/28/2018 blood culture: 4 out of 4 bottles positive for Streptococcus anginosus 07/28/2018 fungal blood culture: In progress but no growth thus far 07/29/2018 urine culture: No growth 08/01/2018 blood culture: negative thus far 08/11/2018 blood culture: in process 08/11/2018 urine culture: no growth 08/15/2018 sputum culture: Staph aureus, E.coli, Pseudomonas A/P: 73-year-old male with COPD, peripheral vascular disease, hypertension, hyperlipidemia, seizure disorder admitted with: 1) New sepsis, fever with leucocytosis secondary to pneumonia: Responding well to IV Cefepime. Follow up final sputum cultures, growing E.coli, Pseudomonas and MSSA, all covered by Cefepime. Complete 7 days of IV cefepime course on 08/22/2018. 2) Streptococcus anginosus bacteremia: 4/4 bottles, REGAN was negative. completed treatment. 3) Acute respiratory failure secondary to congestive heart failure and pneumonia: now s/p trach and PEG. 4) CARLEE, present on admission, now resolved. Recs: Continue IV Cefepime 2 gm q8 hrs x 7 days (last day tomorrow) Will follow. Rhea Ro MD [facility] C: [phone] O: [phone] F: [phone] Subjective Date of service: 08/21/18 Principal diagnosis: Acute hypoxemic respiratory failure; A-fib with RVR; Possible CHF; H/O DVT Interval history: awake, alert, on t-piece. No fever. Feeling well. no complaints. Objective - Exam Narrative Exam: Physical Exam: Constitutional: awake, communicative, no distress Head, Ears, Nose: Normocephalic, atraumatic. External ears, nose normal Eyes: Conjunctivae/corneas clear. No icterus. No ptosis. Neck: trach + Oral:no thrush, no ulcers Cardiovascular: S1, S2 normal Respiratory: air entry good bilaterally, no crackles or wheeze GI: Soft, bowel sounds normal. No peritoneal signs. PEG tube + Musculoskeletal: no pedal edema, no cyanosis. Skin: No rash or abscess Hem/Lymphatic: No palpable cervical or supraclavicular nodes. No lymphangitis Psych: calm Neurological: awake, able to communicate, follow commands - Constitutional Vitals: Vital Signs Temp Pulse Resp BP Pulse Ox 98.7 F 77 18 134/55 97 08/21/18 04:00 08/21/18 08:10 08/21/18 08:10 08/21/18 06:00 08/21/18 09:43 Temperature -Last 24 Hours Temperature 98.7 F Temperature 98.4 F Temperature 99.1 F Temperature 99.1 F - Labs CBC & Chem 7: 08/19/18 04:55 08/19/18 04:55 Labs: Abnormal lab results 08/20/18 08/21/18 Range/Units 22:10 05:32 POC Glucose 125 H 121 H (70-105)
[2018-08-21] MEDS: TYLENOL FEEDTUBE PRN (22:08)
[2018-08-21] MEDS: LANTUS SUB-Q SCH (22:16)
[2018-08-22] MEDS: HumaLOG SUB-Q SCH ×4 (01:03→22:19)
[2018-08-22] MEDS: MAXIPIME/NS 2 GM/100 ML 2 GM/100 ML BAG IV SCH (05:23)
--- NOTE | 2018-08-22 08:49 | Progress Note ---
Assessment and Plan Assessment and plan: patient is 73 yo with H/O COPD, PVD, HTN, HLD, Seizure Disorder, Skin Cancer presented with chest pain, shortness of breath. Pt seen and evaluated in ED and found to have Atrial Fib with RVR refractory to cardizem drip, but improved with Amiodarone Drip, Acute Hypoxemic Respiratory Failure, SIRS. Pt admitted to ICU. He was diagnosed with Sepsis, pneumonia, acute resp failure. he had Trach and PEG 08/11/19. He is hemodynamically stable ,awaiting LTAC placement Sepsis. Previous Blood cultures reveal Streptococcus anginosus. New sepsis, fever with leucocytosis. ID started empiric IV Cefepime and will assess response Acute kidney injury. Etiology secondary to above. Continue to monitor creatin ine. Left lower lobe pneumonia. Continue antibiotics and follow repeat chest x-ray. Sputum culture revealed Pseudomonas and MSSA Acute hypoxemic respiratory failure. Etiology secondary to above. Continue on mechanical ventilation and weaning per pulmonary. Patient is status post trach and PEG on 08/11/18. Atrial fibrillation. Continue Amiodarone and Diltiazem. Cardiology following. REGAN negative. Cont. Eliquis Acute renal failure due to vasomotor nephropathy, Resolved. Hematuria/Urethral stricture. zuniga placed by Urology COPD exacerbation. Continue bronchodilators/nebulizers. IV steroids. Hypertension. Resume antihypertensive medications as needed. Hyperlipidemia. Peripheral vascular disease. Disposition.Plan is for LTAC placement History Interval history: No new complaints no more fever Hospitalist Physical - Physical exam Narrative exam: GEN: Not in acute distress, Trach HEENT: Normocephalic, atraumatic, Neck: supple, No JVD. Tracheostomy Lungs: Clear to auscultation, no wheeze Heart:S1 and S2 regular, no murmurs, rubs or gallop, Abd:soft, non tender, non distended, normal bowel sounds, PEG tube Ext: No edema, no clubbing or cyanosis Neuro: Opens eyes, - Constitutional Vitals: Temp Pulse Resp BP Pulse Ox 98.1 F 72 27 H 119/64 97 08/22/18 04:00 08/22/18 06:00 08/22/18 06:00 08/22/18 06:00 08/22/18 06:00 General appearance: Present: other (intubated on mechanical ventilation) Results - Labs CBC & Chem 7: 08/19/18 04:55 08/19/18 04:55 Labs: Laboratory Last Values WBC 7.8 K/mm3 (4.5-11.0) 08/19/18 04:55 RBC 2.86 M/mm3 (3.65-5.03) L 08/19/18 04:55 Hgb 9.4 gm/dl (11.8-15.2) L 08/19/18 04:55 Hct 28.6 % (35.5-45.6) L 08/19/18 04:55 MCV 100 fl (84-94) H 08/19/18 04:55 MCH 33 pg (28-32) H 08/19/18 04:55 MCHC 33 % (32-34) 08/19/18 04:55 RDW 16.6 % (13.2-15.2) H 08/19/18 04:55 Plt Count 301 K/mm3 (140-440) 08/19/18 04:55 Lymph % (Auto) 3.8 % (13.4-35.0) L 08/16/18 11:06 [place] % (Auto) 5.7 % (0.0-7.3) 08/16/18 11:06 Eos % (Auto) 0.6 % (0.0-4.3) 08/16/18 11:06 Baso % (Auto) 0.4 % (0.0-1.8) 08/16/18 11:06 Lymph # 0.4 K/mm3 (1.2-5.4) L 08/16/18 11:06 [place] # 0.6 K/mm3 (0.0-0.8) 08/16/18 11:06 Eos # 0.1 K/mm3 (0.0-0.4) 08/16/18 11:06 Baso # 0.0 K/mm3 (0.0-0.1) 08/16/18 11:06 Add Manual Diff Complete 08/08/18 02:09 Total Counted 100 08/08/18 02:09 Seg Neutrophils % 89.5 % (40.0-70.0) H 08/16/18 11:06 Seg Neuts % (Manual) 73.0 % (40.0-70.0) H 08/08/18 02:09 Band Neutrophils % 5.0 % 08/08/18 02:09 Lymphocytes % (Manual) 9.0 % (13.4-35.0) L 08/08/18 02:09 Reactive Lymphs % (Man) 0 % 08/08/18 02:09 Monocytes % (Manual) 10.0 % (0.0-7.3) H 08/08/18 02:09 Eosinophils % (Manual) 0 % (0.0-4.3) 08/08/18 02:09 Basophils % (Manual) 0 % (0.0-1.8) 08/08/18 02:09 Metamyelocytes % 3.0 % 08/08/18 02:09 Myelocytes % 0 % 08/08/18 02:09 Promyelocytes % 0 % 08/08/18 02:09 Blast Cells % 0 % 08/08/18 02:09 Nucleated RBC % Not Reportable 08/08/18 02:09 Seg Neutrophils # 9.1 K/mm3 (1.8-7.7) H 08/16/18 11:06 Seg Neutrophils # Man 10.7 K/mm3 (1.8-7.7) H 08/08/18 02:09 Band Neutrophils # 0.7 K/mm3 08/08/18 02:09 Lymphocytes # (Manual) 1.3 K/mm3 (1.2-5.4) 08/08/18 02:09 Abs React Lymphs (Man) 0.0 K/mm3 08/08/18 02:09 Monocytes # (Manual) 1.5 K/mm3 (0.0-0.8) H 08/08/18 02:09 Eosinophils # (Manual) 0.0 K/mm3 (0.0-0.4) 08/08/18 02:09 Basophils # (Manual) 0.0 K/mm3 (0.0-0.1) 08/08/18 02:09 Metamyelocytes # 0.4 K/mm3 08/08/18 02:09 Myelocytes # 0.0 K/mm3 08/08/18 02:09 Promyelocytes # 0.0 K/mm3 08/08/18 02:09 Blast Cells # 0.0 K/mm3 08/08/18 02:09 Pathologist Review 07/28/18 06:01 WBC Morphology Not Reportable 08/08/18 02:09 Hypersegmented Neuts Not Reportable 08/08/18 02:09 Hyposegmented Neuts Not Reportable 08/08/18 02:09 Hypogranular Neuts Not Reportable 08/08/18 02:09 Smudge Cells Not Reportable 08/08/18 02:09 Toxic Granulation Not Reportable 08/08/18 02:09 Toxic Vacuolation Not Reportable 08/08/18 02:09 Dohle Bodies Not Reportable 08/08/18 02:09 Pelger-Huet Anomaly Not Reportable 08/08/18 02:09 Janiya Rods Not Reportable 08/08/18 02:09 Platelet Estimate Appears normal 08/08/18 02:09 Clumped Platelets Not Reportable 08/08/18 02:09 Plt Clumps, EDTA Not Reportable 08/08/18 02:09 Large Platelets Not Reportable 08/08/18 02:09 Giant Platelets Not Reportable 08/08/18 02:09 Platelet Satelliting Not Reportable 08/08/18 02:09 Plt Morphology Comment Not Reportable 08/08/18 02:09 RBC Morphology Not Reportable 08/08/18 02:09 Dimorphic RBCs Not Reportable 08/08/18 02:09 Polychromasia Not Reportable 08/08/18 02:09 Hypochromasia Few 08/08/18 02:09 Poikilocytosis Not Reportable 08/08/18 02:09 Anisocytosis 1+ 08/08/18 02:09 Microcytosis Not Reportable 08/08/18 02:09 Macrocytosis Not Reportable 08/08/18 02:09 Spherocytes Not Reportable 08/08/18 02:09 Pappenheimer Bodies Not Reportable 08/08/18 02:09 Sickle Cells Not Reportable 08/08/18 02:09 Target Cells Not Reportable 08/08/18 02:09 Tear Drop Cells Not Reportable 08/08/18 02:09 Ovalocytes Not Reportable 08/08/18 02:09 Stomatocytes Few 08/08/18 02:09 Helmet Cells Not Reportable 08/08/18 02:09 Lr-[place] Bodies Not Reportable 08/08/18 02:09 [place] Rings Not Reportable 08/08/18 02:09 [place] Cells Not Reportable 08/08/18 02:09 Bite Cells Not Reportable 08/08/18 02:09 Crenated Cell Not Reportable 08/08/18 02:09 Elliptocytes Not Reportable 08/08/18 02:09 Acanthocytes (Spur) Not Reportable 08/08/18 02:09 Rouleaux Not Reportable 08/08/18 02:09 Hemoglobin C Crystals Not Reportable 08/08/18 02:09 Schistocytes Not Reportable 08/08/18 02:09 Malaria parasites Not Reportable 08/08/18 02:09 Jigar Bodies Not Reportable 08/08/18 02:09 Hem Pathologist Commnt No 08/08/18 02:09 PT 13.4 Sec. (12.2-14.9) 08/07/18 15:08 INR 0.98 (0.87-1.13) 08/07/18 15:08 APTT 23.2 Sec. (24.2-36.6) L 08/07/18 15:08 D-Dimer 798.17 ng/mlDDU (0-234) H 07/27/18 15:52 Heparin Anti-Xa Level 1.18 U.I./ml (0.3-0.7) H 08/12/18 14:56 POC ABG pH 7.370 (7.35-7.45) 08/19/18 05:16 POC ABG pCO2 57.5 (35-45) H 08/19/18 05:16 POC ABG pO2 65 (80-105) L 08/19/18 05:16 POC ABG HCO3 33.2 08/19/18 05:16 POC ABG Total CO2 35 08/19/18 05:16 POC ABG O2 Sat 91 08/19/18 05:16 POC ABG Base Excess 8 08/19/18 05:16 FiO2 40 % 08/19/18 05:16 Sodium 140 mmol/L (137-145) 08/19/18 04:55 Potassium 4.3 mmol/L (3.6-5.0) 08/19/18 04:55 Chloride 97.8 mmol/L (98-107) L 08/19/18 04:55 Carbon Dioxide 32 mmol/L (22-30) H 08/19/18 04:55 Anion Gap 15 mmol/L 08/19/18 04:55 BUN 12 mg/dL (9-20) 08/19/18 04:55 Creatinine 0.4 mg/dL (0.8-1.5) L 08/19/18 04:55 Estimated GFR > 60 ml/min 08/19/18 04:55 BUN/Creatinine Ratio 30 % 08/19/18 04:55 Glucose 116 mg/dL (75-100) H 08/19/18 04:55 POC Glucose 147 (70-105) H 08/22/18 05:30 Lactic Acid 1.30 mmol/L (0.7-2.0) 08/03/18 16:48 Calcium 9.0 mg/dL (8.4-10.2) 08/19/18 04:55 Phosphorus 3.30 mg/dL (2.5-4.5) 08/19/18 04:55 Magnesium 2.30 mg/dL (1.7-2.3) 08/19/18 04:55 Total Bilirubin 1.30 mg/dL (0.1-1.2) H 07/27/18 12:59 AST 15 units/L (5-40) 07/27/18 12:59 ALT 16 units/L (7-56) 07/27/18 12:59 Alkaline Phosphatase 62 units/L (35-129) 07/27/18 12:59 Troponin T < 0.010 ng/mL (0.00-0.029) 07/27/18 12:59 C-Reactive Protein 2.30 mg/dL (0.00-1.30) H 08/03/18 16:48 NT-Pro-B Natriuret Pep 3913 pg/mL (0-900) H 07/27/18 12:59 Total Protein 6.2 g/dL (6.3-8.2) L 07/27/18 12:59 Albumin 3.6 g/dL (3.9-5) L 07/27/18 12:59 Albumin/Globulin Ratio 1.4 % 07/27/18 12:59 Triglycerides 64 mg/dL (2-149) 08/08/18 14:02 TSH 1.180 mlU/mL (0.270-4.200) 07/27/18 15:52 Free T4 1.28 ng/dL (0.76-1.46) 07/27/18 15:52 Urine Color Yellow (Yellow) 08/11/18 12:50 Urine Turbidity Clear (Clear) 08/11/18 12:50 Urine pH 6.0 (5.0-7.0) 08/11/18 12:50 Ur Specific [place] 1.015 (1.003-1.030) 08/11/18 12:50 Urine Protein <15 mg/dl mg/dL (Negative) 08/11/18 12:50 Urine Glucose (UA) 50 mg/dL (Negative) 08/11/18 12:50 Urine Ketones Neg mg/dL (Negative) 08/11/18 12:50 Urine Blood Neg (Negative) 08/11/18 12:50 Urine Nitrite Neg (Negative) 08/11/18 12:50 Urine Bilirubin Neg (Negative) 08/11/18 12:50 Urine Urobilinogen 4.0 mg/dL (<2.0) 08/11/18 12:50 Ur Leukocyte Esterase Neg (Negative) 08/11/18 12:50 Urine WBC (Auto) 2.0 /HPF (0.0-6.0) 08/11/18 12:50 Urine RBC (Auto) 2.0 /HPF (0.0-6.0) 08/11/18 12:50 U Epithel Cells (Auto) 2.0 /HPF (0-13.0) 07/29/18 09:24 Urine Bacteria (Auto) 1+ /HPF (Negative) 08/11/18 12:50 Urine Mucus Few /HPF 08/11/18 12:50 Urine Yeast (Bud[place]) 1+ /HPF 07/29/18 09:24 Urine Creatinine 72.3 mg/dL (0.1-20.0) H 07/29/18 09:24 Urine Sodium 12 mmol/L 07/29/18 09:24 Random Vancomycin 9.2 ug/mL (0-40.0) 07/29/18 04:21 Nutrition/Malnutrition Assess - Dietary Evaluation Nutrition/Malnutrition Findings: Nutrition Notes Start: 07/28/18 10:54 Freq: Status: Active Protocol: Document 08/16/18 10:40 OL (Rec: 08/16/18 10:42 OL [id number]) Nutrition Notes Initial or Follow up Reassessment Current Diagnoses Acute Kidney Injury COPD Sepsis Hypertension Heart Failure Respiratory Failure Other Pertinent Diagnosis Hx of Skin Cancer Current Diet Nepro at 50ml/hr Labs/Tests Reviewed Medications Reviewed Height 5 ft 8 in Weight 85.1 kg [place] Body Weight (lbs) 154.0 BMI 28.5 Subjective/Other Information Nepro infusing at goal rate of 50mL/hr, well tolerated Burn Absent Trauma Absent #1 Nutrition Diagnoses Inadequate oral intake Diagnosis Progress(for reassessment Continues documentation) Is patient on ventilator? Yes Is Patient Ambulatory and/or Out of Bed No REE-([facility]-confined to bed) 2344.102 Calculation Used for Recommendations [facility] Additional Notes protein (1.2-2g/kg): 102-170g fluid: 1mL/kcal Nutrition Intervention Change Diet Order: Continue TF Nutrition Support: Nepro at 50mL/hr 250 mL free water flush q4h or per MD. Kcal 2,160 Protein (gm) 97 Fluid (mL) 872 Goal #1 TF tolerance and rate Goal #2 Meet at least 80% of kcal needs and 80-100% of protein needs. Follow-Up By: 08/23/18 Additional Comments f/u: stable TF
[2018-08-22] MEDS: PULMICORT IH SCH ×2 (08:59→20:09)
[2018-08-22] MEDS: BROVANA NEBU IH SCH ×2 (08:59→20:09)
--- NOTE | 2018-08-22 09:01 | Progress Note ---
Assessment and Plan Cultures: 07/27/2018 tracheal aspirate culture: Pseudomonas aeruginosa, MSSA 07/28/2018 blood culture: 4 out of 4 bottles positive for Streptococcus anginosus 07/28/2018 fungal blood culture: In progress but no growth thus far 07/29/2018 urine culture: No growth 08/01/2018 blood culture: negative thus far 08/11/2018 blood culture: in process 08/11/2018 urine culture: no growth 08/15/2018 sputum culture: MSSA, E.coli, Pseudomonas Assessment: 73-year-old male with COPD, peripheral vascular disease, hypertension, hyperlipidemia, seizure disorder admitted with: 1) New sepsis: resolved; secondary to pneumonia. Final sputum cultures, growing E.coli, Pseudomonas and MSSA, all covered by Cefepime. 2) Initial Streptococcus anginosus bacteremia: 4/4 bottles, REGAN was negative. completed treatment. 3) Acute respiratory failure secondary to congestive heart failure and pneumonia: now s/p trach and PEG. 4) CARLEE, present on admission, now resolved. 5) Hematuria on heparin/Uretral striture: s/p cysto and zuniga placement on 08/08/2018 Recs: - Stop IV Cefepime 2 gm q8 hrs x 7 days (last day today) - Monitor off abx - will ask Urology duration of zuniga Will follow. MD Ruth [facility] C: [phone] O: [phone] F: [phone] Subjective Date of service: 08/22/18 Principal diagnosis: Acute hypoxemic respiratory failure; A-fib with RVR; Possible CHF; H/O DVT Interval history: Patient reports feeling ok, on trach collar. No fever reported. Objective - Exam Narrative Exam: Constitutional: alert in NAD pleasant Head, Ears, Nose: Normocephalic, atraumatic. External ears, nose normal Eyes: Conjunctivae/corneas clear. No icterus. No ptosis. Neck: trach + no secretions Oral:limited Cardiovascular: RRR Respiratory: dileep scattered rhonchi GI: Soft, bowel sounds normal. No peritoneal signs. PEG tube + Musculoskeletal: no pedal edema, no cyanosis. Skin: No rash or abscess Hem/Lymphatic: No palpable cervical or supraclavicular nodes. No lymphangitis Psych: calm Neurological: awake, able to communicate, follow commands +Zuniga - Constitutional Vitals: Vital Signs Temp Pulse Resp BP Pulse Ox 98.1 F 76 20 119/64 97 08/22/18 04:00 08/22/18 09:00 08/22/18 09:00 08/22/18 06:00 08/22/18 06:00 Temperature -Last 24 Hours Temperature 98.1 F Temperature 98.4 F Temperature 98.7 F - Labs CBC & Chem 7: 08/19/18 04:55 08/19/18 04:55 Labs: Abnormal lab results 08/21/18 08/21/18 08/22/18 Range/Units 17:37 22:19 05:30 POC Glucose 126 H 129 H 147 H (70-105)
[2018-08-22] MEDS: CORDARONE PO SCH ×2 (09:53→22:02)
[2018-08-22] MEDS: ELIQUIS PO SCH ×2 (09:53→22:02)
[2018-08-22] MEDS: VITAMIN B-12 PO SCH (09:54)
[2018-08-22] MEDS: PEPCID PO SCH ×2 (09:54→22:22)
[2018-08-22] MEDS: SODIUM CHLORIDE FLUSH SYRINGE 10 ML IV SCH ×2 (09:55→22:01)
[2018-08-22] MEDS: PRAVACHOL PO SCH (09:56)
[2018-08-22] MEDS: TYLENOL FEEDTUBE PRN (16:41)
--- NOTE | 2018-08-22 18:04 | Progress Note ---
Assessment and Plan Patient resting on T tube. FIO2 35% O2 saturation 92%. Complaining sore throat. No acute respiratory distress. - Patient Problems (1) Acute respiratory failure Current Visit: Yes Status: Acute Qualifiers: Respiratory failure complication: hypoxia Qualified Code(s): J96.01 - Acute respiratory failure with hypoxia Plan to address problem: T tube FIO2 35%. Brovanna/Budesonide aerosol treatments q 12 hours. Albuterol/atrovent aerosol treatments q 6 hours PRN for shortness of breath. Patient is on Apixaban. Continue famotidine. (2) Atrial fibrillation with RVR Current Visit: Yes Status: Acute Plan to address problem: Patient is on Apixaban. Management as per cardiology. (3) CHF (congestive heart failure) Current Visit: Yes Status: Acute Qualifiers: Heart failure type: systolic Heart failure chronicity: acute Qualified Code(s): I50.21 - Acute systolic (congestive) heart failure Plan to address problem: Management as per primary care and cardiology. (4) Pneumonia Current Visit: Yes Status: Acute Plan to address problem: Patient is on cefepime. (5) COPD (chronic obstructive pulmonary disease) Current Visit: Yes Status: Chronic Plan to address problem: T tube FIO2 35%. Brovanna/Budesonide aerosol treatments q 12 hours. Albuterol/atrovent aerosol treatments q 6 hours PRN for shortness of breath. Patient is on Apixaban. Continue famotidine. (6) Hypertension Current Visit: Yes Status: Chronic Qualifiers: Hypertension type: essential hypertension Qualified Code(s): I10 - Essential (primary) hypertension Plan to address problem: Management as per primary care. Subjective Date of service: 08/22/18 Principal diagnosis: Acute hypoxemic respiratory failure; A-fib with RVR; Possible CHF; H/O DVT Interval history: Patient resting on T tube. FIO2 35% O2 saturation 92%. Complaining sore throat. No acute respiratory distress. Objective Vital Signs - 12hr 08/22/18 08/22/18 08/22/18 06:00 07:00 08:00 Temperature 98.3 F Pulse Rate 72 76 71 Pulse Rate [ Bilateral] Pulse Rate [ 81 From Monitor] Respiratory 27 H 28 H 29 H Rate Respiratory Rate [Bilateral ] Blood Pressure 119/64 119/69 130/61 O2 Sat by Pulse 97 96 91 Oximetry O2 Sat by Pulse Oximetry [ Assessment] 08/22/18 08/22/18 08/22/18 08:59 09:00 09:03 Temperature Pulse Rate 81 Pulse Rate [ 80 76 Bilateral] Pulse Rate [ From Monitor] Respiratory 19 Rate Respiratory 20 20 Rate [Bilateral ] Blood Pressure 118/71 O2 Sat by Pulse 94 93 Oximetry O2 Sat by Pulse 92 Oximetry [ Assessment] 08/22/18 08/22/18 08/22/18 10:00 11:00 12:00 Temperature 98.5 F Pulse Rate 85 82 80 Pulse Rate [ Bilateral] Pulse Rate [ 77 From Monitor] Respiratory 19 16 Rate Respiratory Rate [Bilateral ] Blood Pressure 118/71 119/71 115/72 O2 Sat by Pulse 98 97 Oximetry O2 Sat by Pulse Oximetry [ Assessment] 08/22/18 08/22/18 08/22/18 13:00 14:00 15:00 Temperature Pulse Rate 77 73 78 Pulse Rate [ Bilateral] Pulse Rate [ From Monitor] Respiratory 22 27 H 23 Rate Respiratory Rate [Bilateral ] Blood Pressure 122/69 125/65 131/67 O2 Sat by Pulse 93 94 94 Oximetry O2 Sat by Pulse Oximetry [ Assessment] 08/22/18 16:00 Temperature 97.9 F Pulse Rate 75 Pulse Rate [ Bilateral] Pulse Rate [ From Monitor] Respiratory 29 H Rate Respiratory Rate [Bilateral ] Blood Pressure 123/72 O2 Sat by Pulse 95 Oximetry O2 Sat by Pulse Oximetry [ Assessment] Constitutional: no acute distress, alert, other (elderly looking CM, normocephalic and atraumatic with normal respiratory effort) Eyes: non-icteric ENT: oropharynx moist, other (s/p tracheosomy) Neck: supple, no lymphadenopathy, no JVD, other (No thyromegaly) Effort: mildly labored Ascultation: Bilateral: diminished breath sounds, rhonchi Percussion: Bilateral: not dull Cardiovascular: irregular rhythm, other (+ systolic murmur) Gastrointestinal: normoactive bowel sounds, soft, non-tender, non-distended, other (No palpable HSM) Integumentary: rash, other (upper extremity edema) Extremities: no cyanosis, pink and warm, pulses normal, no ischemia or petechiae Neurologic: normal mental status, non-focal exam (grossly), pupils equal and round, CN II-XII normal, other (moves all extemities) Psychiatric: mood appropriate, affect normal CBC and BMP: 08/23/18 04:37 08/23/18 04:37 ABG, PT/INR, D-dimer: ABG POC ABG pH 7.370 (7.35-7.45) 08/19/18 05:16 POC ABG pCO2 57.5 (35-45) H 08/19/18 05:16 POC ABG pO2 65 (80-105) L 08/19/18 05:16 POC ABG HCO3 33.2 08/19/18 05:16 POC ABG Total CO2 35 08/19/18 05:16 POC ABG O2 Sat 91 08/19/18 05:16 PT/INR, D-dimer PT 13.4 Sec. (12.2-14.9) 08/07/18 15:08 INR 0.98 (0.87-1.13) 08/07/18 15:08 D-Dimer 798.17 ng/mlDDU (0-234) H 07/27/18 15:52 Abnormal lab findings: Abnormal Labs 07/27/18 07/27/18 07/27/18 12:59 12:59 12:59 WBC 15.8 H RBC Hgb Hct MCV 104 H MCH 34 H MCHC RDW 16.3 H Lymph % (Auto) [place] % (Auto) Lymph # [place] # Seg Neutrophils % Seg Neuts % (Manual) 88.0 H Lymphocytes % (Manual) 3.0 L Monocytes % (Manual) Nucleated RBC % Seg Neutrophils # Seg Neutrophils # Man 13.9 H Lymphocytes # (Manual) 0.5 L Monocytes # (Manual) PT 17.0 H INR 1.34 H APTT D-Dimer Heparin Anti-Xa Level POC ABG pH POC ABG pCO2 POC ABG pO2 Sodium Potassium Chloride Carbon Dioxide 21 L BUN 38 H Creatinine 1.6 H Glucose POC Glucose Lactic Acid Calcium Phosphorus Total Bilirubin 1.30 H C-Reactive Protein NT-Pro-B Natriuret Pep 3913 H Total Protein 6.2 L Albumin 3.6 L Urine WBC (Auto) Urine Creatinine 07/27/18 07/27/18 07/27/18 15:52 16:12 17:09 WBC RBC Hgb Hct MCV MCH MCHC RDW Lymph % (Auto) [place] % (Auto) Lymph # [place] # Seg Neutrophils % Seg Neuts % (Manual) Lymphocytes % (Manual) Monocytes % (Manual) Nucleated RBC % Seg Neutrophils # Seg Neutrophils # Man Lymphocytes # (Manual) Monocytes # (Manual) PT 16.0 H INR 1.24 H APTT D-Dimer 798.17 H Heparin Anti-Xa Level POC ABG pH POC ABG pCO2 POC ABG pO2 Sodium Potassium Chloride Carbon Dioxide BUN Creatinine Glucose POC Glucose Lactic Acid 5.00 H* Calcium Phosphorus Total Bilirubin C-Reactive Protein NT-Pro-B Natriuret Pep Total Protein Albumin Urine WBC (Auto) Urine Creatinine 07/27/18 07/27/18 07/27/18 17:59 18:07 21:31 WBC RBC Hgb Hct MCV MCH MCHC RDW Lymph % (Auto) [place] % (Auto) Lymph # [place] # Seg Neutrophils % Seg Neuts % (Manual) Lymphocytes % (Manual) Monocytes % (Manual) Nucleated RBC % Seg Neutrophils # Seg Neutrophils # Man Lymphocytes # (Manual) Monocytes # (Manual) PT INR APTT D-Dimer Heparin Anti-Xa Level POC ABG pH 7.344 L POC ABG pCO2 POC ABG pO2 36 L Sodium Potassium Chloride Carbon Dioxide BUN Creatinine Glucose POC Glucose Lactic Acid 5.20 H* 5.00 H* Calcium Phosphorus Total Bilirubin C-Reactive Protein NT-Pro-B Natriuret Pep Total Protein Albumin Urine WBC (Auto) Urine Creatinine 07/27/18 07/27/18 07/27/18 21:57 22:42 23:26 WBC RBC Hgb Hct MCV MCH MCHC RDW Lymph % (Auto) [place] % (Auto) Lymph # [place] # Seg Neutrophils % Seg Neuts % (Manual) Lymphocytes % (Manual) Monocytes % (Manual) Nucleated RBC % Seg Neutrophils # Seg Neutrophils # Man Lymphocytes # (Manual) Monocytes # (Manual) PT INR APTT D-Dimer Heparin Anti-Xa Level POC ABG pH 7.199 L POC ABG pCO2 62.0 H POC ABG pO2 Sodium Potassium Chloride Carbon Dioxide BUN Creatinine Glucose POC Glucose Lactic Acid 4.70 H* 5.00 H* Calcium Phosphorus Total Bilirubin C-Reactive Protein NT-Pro-B Natriuret Pep Total Protein Albumin Urine WBC (Auto) Urine Creatinine 07/28/18 07/28/18 07/28/18 00:45 05:40 05:58 WBC RBC Hgb Hct MCV MCH MCHC RDW Lymph % (Auto) [place] % (Auto) Lymph # [place] # Seg Neutrophils % Seg Neuts % (Manual) Lymphocytes % (Manual) Monocytes % (Manual) Nucleated RBC % Seg Neutrophils # Seg Neutrophils # Man Lymphocytes # (Manual) Monocytes # (Manual) PT INR APTT D-Dimer Heparin Anti-Xa Level 0.11 L POC ABG pH 7.186 L POC ABG pCO2 60.1 H POC ABG pO2 68 L Sodium Potassium Chloride Carbon Dioxide BUN Creatinine Glucose POC Glucose Lactic Acid 4.70 H* Calcium Phosphorus Total Bilirubin C-Reactive Protein NT-Pro-B Natriuret Pep Total Protein Albumin Urine WBC (Auto) Urine Creatinine 07/28/18 07/28/18 07/28/18 06:01 06:01 07:19 WBC 12.5 H RBC 3.51 L Hgb 11.5 L Hct MCV 104 H MCH 33 H MCHC RDW 16.6 H Lymph % (Auto) [place] % (Auto) Lymph # [place] # Seg Neutrophils % Seg Neuts % (Manual) Lymphocytes % (Manual) Monocytes % (Manual) Nucleated RBC % Seg Neutrophils # Seg Neutrophils # Man Lymphocytes # (Manual) Monocytes # (Manual) PT INR APTT D-Dimer Heparin Anti-Xa Level 0.14 L POC ABG pH POC ABG pCO2 POC ABG pO2 Sodium 135 L Potassium 5.1 H Chloride 95.0 L Carbon Dioxide 21 L BUN 54 H Creatinine 2.6 H D Glucose POC Glucose Lactic Acid Calcium Phosphorus Total Bilirubin C-Reactive Protein NT-Pro-B Natriuret Pep Total Protein Albumin Urine WBC (Auto) Urine Creatinine 07/28/18 07/28/18 07/28/18 07:19 09:20 11:06 WBC RBC Hgb Hct MCV MCH MCHC RDW Lymph % (Auto) [place] % (Auto) Lymph # [place] # Seg Neutrophils % Seg Neuts % (Manual) Lymphocytes % (Manual) Monocytes % (Manual) Nucleated RBC % Seg Neutrophils # Seg Neutrophils # Man Lymphocytes # (Manual) Monocytes # (Manual) PT INR APTT D-Dimer Heparin Anti-Xa Level POC ABG pH 7.266 L POC ABG pCO2 49.7 H POC ABG pO2 74 L Sodium Potassium Chloride Carbon Dioxide BUN Creatinine Glucose POC Glucose Lactic Acid 4.00 H* 3.90 H* Calcium Phosphorus Total Bilirubin C-Reactive Protein NT-Pro-B Natriuret Pep Total Protein Albumin Urine WBC (Auto) Urine Creatinine 07/28/18 07/28/18 07/28/18 15:06 20:45 23:36 WBC RBC Hgb Hct MCV MCH MCHC RDW Lymph % (Auto) [place] % (Auto) Lymph # [place] # Seg Neutrophils % Seg Neuts % (Manual) Lymphocytes % (Manual) Monocytes % (Manual) Nucleated RBC % Seg Neutrophils # Seg Neutrophils # Man Lymphocytes # (Manual) Monocytes # (Manual) PT INR APTT D-Dimer Heparin Anti-Xa Level 0.15 L POC ABG pH POC ABG pCO2 POC ABG pO2 Sodium 134 L Potassium 5.2 H Chloride Carbon Dioxide BUN 58 H Creatinine 2.1 H Glucose 110 H POC Glucose 125 H Lactic Acid Calcium Phosphorus Total Bilirubin C-Reactive Protein NT-Pro-B Natriuret Pep Total Protein Albumin Urine WBC (Auto) Urine Creatinine 07/29/18 07/29/18 07/29/18 01:12 04:21 04:21 WBC RBC 3.21 L Hgb 10.8 L Hct 33.0 L MCV 103 H MCH 34 H MCHC RDW 16.4 H Lymph % (Auto) [place] % (Auto) Lymph # [place] # Seg Neutrophils % Seg Neuts % (Manual) Lymphocytes % (Manual) 11.0 L Monocytes % (Manual) Nucleated RBC % Seg Neutrophils # Seg Neutrophils # Man Lymphocytes # (Manual) 1.0 L Monocytes # (Manual) PT INR APTT D-Dimer Heparin Anti-Xa Level 0.21 L POC ABG pH POC ABG pCO2 POC ABG pO2 Sodium Potassium Chloride Carbon Dioxide BUN 48 H Creatinine 1.6 H Glucose 166 H POC Glucose Lactic Acid Calcium Phosphorus Total Bilirubin C-Reactive Protein NT-Pro-B Natriuret Pep Total Protein Albumin Urine WBC (Auto) Urine Creatinine 07/29/18 07/29/18 07/29/18 05:19 08:16 09:24 WBC RBC Hgb Hct MCV MCH MCHC RDW Lymph % (Auto) [place] % (Auto) Lymph # [place] # Seg Neutrophils % Seg Neuts % (Manual) Lymphocytes % (Manual) Monocytes % (Manual) Nucleated RBC % Seg Neutrophils # Seg Neutrophils # Man Lymphocytes # (Manual) Monocytes # (Manual) PT INR APTT D-Dimer Heparin Anti-Xa Level 0.25 L POC ABG pH POC ABG pCO2 POC ABG pO2 Sodium Potassium Chloride Carbon Dioxide BUN Creatinine Glucose POC Glucose 181 H Lactic Acid Calcium Phosphorus Total Bilirubin C-Reactive Protein NT-Pro-B Natriuret Pep Total Protein Albumin Urine WBC (Auto) 29.0 H Urine Creatinine 07/29/18 07/29/18 07/29/18 09:24 10:00 15:03 WBC RBC Hgb Hct MCV MCH MCHC RDW Lymph % (Auto) [place] % (Auto) Lymph # [place] # Seg Neutrophils % Seg Neuts % (Manual) Lymphocytes % (Manual) Monocytes % (Manual) Nucleated RBC % Seg Neutrophils # Seg Neutrophils # Man Lymphocytes # (Manual) Monocytes # (Manual) PT INR APTT D-Dimer Heparin Anti-Xa Level POC ABG pH POC ABG pCO2 POC ABG pO2 Sodium Potassium Chloride Carbon Dioxide BUN Creatinine Glucose POC Glucose 195 H 167 H Lactic Acid Calcium Phosphorus Total Bilirubin C-Reactive Protein NT-Pro-B Natriuret Pep Total Protein Albumin Urine WBC (Auto) Urine Creatinine 72.3 H 07/29/18 07/29/18 07/30/18 17:51 21:32 01:38 WBC RBC Hgb Hct MCV MCH MCHC RDW Lymph % (Auto) [place] % (Auto) Lymph # [place] # Seg Neutrophils % Seg Neuts % (Manual) Lymphocytes % (Manual) Monocytes % (Manual) Nucleated RBC % Seg Neutrophils # Seg Neutrophils # Man Lymphocytes # (Manual) Monocytes # (Manual) PT INR APTT D-Dimer Heparin Anti-Xa Level POC ABG pH POC ABG pCO2 POC ABG pO2 Sodium Potassium Chloride Carbon Dioxide BUN Creatinine Glucose POC Glucose 167 H 217 H 194 H Lactic Acid Calcium Phosphorus Total Bilirubin C-Reactive Protein NT-Pro-B Natriuret Pep Total Protein Albumin Urine WBC (Auto) Urine Creatinine 07/30/18 07/30/18 07/30/18 03:21 05:13 10:18 WBC RBC Hgb Hct MCV MCH MCHC RDW Lymph % (Auto) [place] % (Auto) Lymph # [place] # Seg Neutrophils % Seg Neuts % (Manual) Lymphocytes % (Manual) Monocytes % (Manual) Nucleated RBC % Seg Neutrophils # Seg Neutrophils # Man Lymphocytes # (Manual) Monocytes # (Manual) PT INR APTT D-Dimer Heparin Anti-Xa Level POC ABG pH POC ABG pCO2 50.3 H POC ABG pO2 78 L Sodium Potassium Chloride Carbon Dioxide BUN 41 H Creatinine Glucose 202 H POC Glucose 151 H Lactic Acid Calcium Phosphorus Total Bilirubin C-Reactive Protein NT-Pro-B Natriuret Pep Total Protein Albumin Urine WBC (Auto) Urine Creatinine 07/30/18 07/30/18 07/30/18 11:29 16:28 18:12 WBC RBC Hgb Hct MCV MCH MCHC RDW Lymph % (Auto) [place] % (Auto) Lymph # [place] # Seg Neutrophils % Seg Neuts % (Manual) Lymphocytes % (Manual) Monocytes % (Manual) Nucleated RBC % Seg Neutrophils # Seg Neutrophils # Man Lymphocytes # (Manual) Monocytes # (Manual) PT INR APTT D-Dimer Heparin Anti-Xa Level POC ABG pH 7.326 L POC ABG pCO2 53.2 H POC ABG pO2 70 L Sodium Potassium Chloride Carbon Dioxide BUN Creatinine Glucose POC Glucose 247 H 212 H Lactic Acid Calcium Phosphorus Total Bilirubin C-Reactive Protein NT-Pro-B Natriuret Pep Total Protein Albumin Urine WBC (Auto) Urine Creatinine 07/30/18 07/30/18 07/31/18 20:08 21:52 01:59 WBC RBC Hgb Hct MCV MCH MCHC RDW Lymph % (Auto) [place] % (Auto) Lymph # [place] # Seg Neutrophils % Seg Neuts % (Manual) Lymphocytes % (Manual) Monocytes % (Manual) Nucleated RBC % Seg Neutrophils # Seg Neutrophils # Man Lymphocytes # (Manual) Monocytes # (Manual) PT INR APTT D-Dimer Heparin Anti-Xa Level POC ABG pH POC ABG pCO2 POC ABG pO2 Sodium Potassium Chloride Carbon Dioxide BUN Creatinine Glucose POC Glucose 205 H 215 H 242 H Lactic Acid Calcium Phosphorus Total Bilirubin C-Reactive Protein NT-Pro-B Natriuret Pep Total Protein Albumin Urine WBC (Auto) Urine Creatinine 07/31/18 07/31/18 07/31/18 03:14 03:14 04:55 WBC RBC Hgb 10.6 L Hct 33.2 L MCV MCH MCHC RDW Lymph % (Auto) [place] % (Auto) Lymph # [place] # Seg Neutrophils % Seg Neuts % (Manual) Lymphocytes % (Manual) Monocytes % (Manual) Nucleated RBC % Seg Neutrophils # Seg Neutrophils # Man Lymphocytes # (Manual) Monocytes # (Manual) PT INR APTT D-Dimer Heparin Anti-Xa Level POC ABG pH 7.331 L POC ABG pCO2 67.1 H POC ABG pO2 Sodium Potassium Chloride Carbon Dioxide BUN 36 H Creatinine 0.7 L Glucose 242 H POC Glucose Lactic Acid Calcium 10.3 H Phosphorus 2.30 L Total Bilirubin C-Reactive Protein NT-Pro-B Natriuret Pep Total Protein Albumin Urine WBC (Auto) Urine Creatinine 07/31/18 07/31/18 07/31/18 05:37 10:08 14:07 WBC RBC Hgb Hct MCV MCH MCHC RDW Lymph % (Auto) [place] % (Auto) Lymph # [place] # Seg Neutrophils % Seg Neuts % (Manual) Lymphocytes % (Manual) Monocytes % (Manual) Nucleated RBC % Seg Neutrophils # Seg Neutrophils # Man Lymphocytes # (Manual) Monocytes # (Manual) PT INR APTT D-Dimer Heparin Anti-Xa Level POC ABG pH POC ABG pCO2 POC ABG pO2 Sodium Potassium Chloride Carbon Dioxide BUN Creatinine Glucose POC Glucose 193 H 247 H 225 H Lactic Acid Calcium Phosphorus Total Bilirubin C-Reactive Protein NT-Pro-B Natriuret Pep Total Protein Albumin Urine WBC (Auto) Urine Creatinine 07/31/18 07/31/18 08/01/18 18:12 21:34 02:00 WBC RBC Hgb Hct MCV MCH MCHC RDW Lymph % (Auto) [place] % (Auto) Lymph # [place] # Seg Neutrophils % Seg Neuts % (Manual) Lymphocytes % (Manual) Monocytes % (Manual) Nucleated RBC % Seg Neutrophils # Seg Neutrophils # Man Lymphocytes # (Manual) Monocytes # (Manual) PT INR APTT D-Dimer Heparin Anti-Xa Level POC ABG pH POC ABG pCO2 POC ABG pO2 Sodium Potassium Chloride Carbon Dioxide BUN Creatinine Glucose POC Glucose 197 H 204 H 239 H Lactic Acid Calcium Phosphorus Total Bilirubin C-Reactive Protein NT-Pro-B Natriuret Pep Total Protein Albumin Urine WBC (Auto) Urine Creatinine 08/01/18 08/01/18 08/01/18 04:13 04:37 05:29 WBC RBC Hgb Hct MCV MCH MCHC RDW Lymph % (Auto) [place] % (Auto) Lymph # [place] # Seg Neutrophils % Seg Neuts % (Manual) Lymphocytes % (Manual) Monocytes % (Manual) Nucleated RBC % Seg Neutrophils # Seg Neutrophils # Man Lymphocytes # (Manual) Monocytes # (Manual) PT INR APTT D-Dimer Heparin Anti-Xa Level POC ABG pH 7.296 L POC ABG pCO2 81.9 H POC ABG pO2 190 H Sodium 150 H D Potassium Chloride Carbon Dioxide 37 H D BUN 37 H Creatinine 0.6 L Glucose 223 H POC Glucose 219 H Lactic Acid Calcium Phosphorus Total Bilirubin C-Reactive Protein NT-Pro-B Natriuret Pep Total Protein Albumin Urine WBC (Auto) Urine Creatinine 08/01/18 08/01/18 08/01/18 09:28 11:00 17:36 WBC RBC Hgb Hct MCV MCH MCHC RDW Lymph % (Auto) [place] % (Auto) Lymph # [place] # Seg Neutrophils % Seg Neuts % (Manual) Lymphocytes % (Manual) Monocytes % (Manual) Nucleated RBC % Seg Neutrophils # Seg Neutrophils # Man Lymphocytes # (Manual) Monocytes # (Manual) PT INR APTT D-Dimer Heparin Anti-Xa Level POC ABG pH POC ABG pCO2 61.2 H POC ABG pO2 69 L Sodium Potassium Chloride Carbon Dioxide BUN Creatinine Glucose POC Glucose 185 H 234 H Lactic Acid Calcium Phosphorus Total Bilirubin C-Reactive Protein NT-Pro-B Natriuret Pep Total Protein Albumin Urine WBC (Auto) Urine Creatinine 08/01/18 08/02/18 08/02/18 21:54 00:08 00:44 WBC RBC Hgb Hct MCV MCH MCHC RDW Lymph % (Auto) [place] % (Auto) Lymph # [place] # Seg Neutrophils % Seg Neuts % (Manual) Lymphocytes % (Manual) Monocytes % (Manual) Nucleated RBC % Seg Neutrophils # Seg Neutrophils # Man Lymphocytes # (Manual) Monocytes # (Manual) PT INR APTT D-Dimer Heparin Anti-Xa Level 0.77 H POC ABG pH POC ABG pCO2 66.4 H POC ABG pO2 64 L Sodium Potassium Chloride Carbon Dioxide BUN Creatinine Glucose POC Glucose 242 H Lactic Acid Calcium Phosphorus Total Bilirubin C-Reactive Protein NT-Pro-B Natriuret Pep Total Protein Albumin Urine WBC (Auto) Urine Creatinine 08/02/18 08/02/18 08/02/18 02:46 04:45 04:45 WBC RBC Hgb 10.7 L Hct 33.7 L MCV MCH MCHC RDW Lymph % (Auto) [place] % (Auto) Lymph # [place] # Seg Neutrophils % Seg Neuts % (Manual) Lymphocytes % (Manual) Monocytes % (Manual) Nucleated RBC % Seg Neutrophils # Seg Neutrophils # Man Lymphocytes # (Manual) Monocytes # (Manual) PT INR APTT D-Dimer Heparin Anti-Xa Level POC ABG pH POC ABG pCO2 POC ABG pO2 Sodium 152 H Potassium Chloride 108.1 H Carbon Dioxide 39 H BUN 38 H Creatinine 0.6 L Glucose 226 H POC Glucose 206 H Lactic Acid Calcium Phosphorus Total Bilirubin C-Reactive Protein NT-Pro-B Natriuret Pep Total Protein Albumin Urine WBC (Auto) Urine Creatinine 12/18/18 12/18/18 12/18/18 05:31 09:46 14:23 WBC RBC Hgb Hct MCV MCH MCHC RDW Lymph % (Auto) [place] % (Auto) Lymph # [place] # Seg Neutrophils % Seg Neuts % (Manual) Lymphocytes % (Manual) Monocytes % (Manual) Nucleated RBC % Seg Neutrophils # Seg Neutrophils # Man Lymphocytes # (Manual) Monocytes # (Manual) PT INR APTT D-Dimer Heparin Anti-Xa Level 0.91 H POC ABG pH POC ABG pCO2 POC ABG pO2 Sodium Potassium Chloride Carbon Dioxide BUN Creatinine Glucose POC Glucose 214 H 210 H Lactic Acid Calcium Phosphorus Total Bilirubin C-Reactive Protein NT-Pro-B Natriuret Pep Total Protein Albumin Urine WBC (Auto) Urine Creatinine 08/02/18 08/02/18 08/02/18 15:46 17:56 21:50 WBC RBC Hgb Hct MCV MCH MCHC RDW Lymph % (Auto) [place] % (Auto) Lymph # [place] # Seg Neutrophils % Seg Neuts % (Manual) Lymphocytes % (Manual) Monocytes % (Manual) Nucleated RBC % Seg Neutrophils # Seg Neutrophils # Man Lymphocytes # (Manual) Monocytes # (Manual) PT INR APTT D-Dimer Heparin Anti-Xa Level 0.99 H POC ABG pH POC ABG pCO2 POC ABG pO2 Sodium Potassium Chloride Carbon Dioxide BUN Creatinine Glucose POC Glucose 252 H 222 H Lactic Acid Calcium Phosphorus Total Bilirubin C-Reactive Protein NT-Pro-B Natriuret Pep Total Protein Albumin Urine WBC (Auto) Urine Creatinine 08/03/18 08/03/18 08/03/18 02:18 05:21 05:25 WBC RBC Hgb Hct MCV MCH MCHC RDW Lymph % (Auto) [place] % (Auto) Lymph # [place] # Seg Neutrophils % Seg Neuts % (Manual) Lymphocytes % (Manual) Monocytes % (Manual) Nucleated RBC % Seg Neutrophils # Seg Neutrophils # Man Lymphocytes # (Manual) Monocytes # (Manual) PT INR APTT D-Dimer Heparin Anti-Xa Level POC ABG pH POC ABG pCO2 POC ABG pO2 Sodium 151 H Potassium Chloride 107.3 H Carbon Dioxide 37 H BUN 42 H Creatinine 0.6 L Glucose 263 H POC Glucose 241 H 241 H Lactic Acid Calcium Phosphorus Total Bilirubin C-Reactive Protein NT-Pro-B Natriuret Pep Total Protein Albumin Urine WBC (Auto) Urine Creatinine 08/03/18 08/03/18 08/03/18 09:11 12:20 14:33 WBC RBC Hgb Hct MCV MCH MCHC RDW Lymph % (Auto) [place] % (Auto) Lymph # [place] # Seg Neutrophils % Seg Neuts % (Manual) Lymphocytes % (Manual) Monocytes % (Manual) Nucleated RBC % Seg Neutrophils # Seg Neutrophils # Man Lymphocytes # (Manual) Monocytes # (Manual) PT INR APTT D-Dimer Heparin Anti-Xa Level POC ABG pH POC ABG pCO2 POC ABG pO2 Sodium Potassium Chloride Carbon Dioxide BUN Creatinine Glucose POC Glucose 272 H 234 H 247 H Lactic Acid Calcium Phosphorus Total Bilirubin C-Reactive Protein NT-Pro-B Natriuret Pep Total Protein Albumin Urine WBC (Auto) Urine Creatinine 08/03/18 08/03/18 08/04/18 16:48 21:21 01:56 WBC RBC Hgb Hct MCV MCH MCHC RDW Lymph % (Auto) [place] % (Auto) Lymph # [place] # Seg Neutrophils % Seg Neuts % (Manual) Lymphocytes % (Manual) Monocytes % (Manual) Nucleated RBC % Seg Neutrophils # Seg Neutrophils # Man Lymphocytes # (Manual) Monocytes # (Manual) PT INR APTT D-Dimer Heparin Anti-Xa Level POC ABG pH POC ABG pCO2 POC ABG pO2 Sodium Potassium Chloride Carbon Dioxide BUN Creatinine Glucose POC Glucose 180 H 189 H Lactic Acid Calcium Phosphorus Total Bilirubin C-Reactive Protein 2.30 H NT-Pro-B Natriuret Pep Total Protein Albumin Urine WBC (Auto) Urine Creatinine 08/04/18 08/04/18 08/04/18 01:58 05:05 05:05 WBC 25.5 H RBC 3.31 L Hgb 10.8 L Hct 34.1 L MCV 103 H MCH 33 H MCHC RDW 16.0 H Lymph % (Auto) [place] % (Auto) Lymph # [place] # Seg Neutrophils % Seg Neuts % (Manual) Lymphocytes % (Manual) 8.0 L Monocytes % (Manual) Nucleated RBC % 2.0 H Seg Neutrophils # Seg Neutrophils # Man 16.3 H Lymphocytes # (Manual) Monocytes # (Manual) 1.0 H PT INR APTT D-Dimer Heparin Anti-Xa Level 0.79 H POC ABG pH POC ABG pCO2 POC ABG pO2 Sodium 148 H Potassium Chloride Carbon Dioxide 36 H BUN 35 H Creatinine 0.6 L Glucose 160 H POC Glucose Lactic Acid Calcium Phosphorus Total Bilirubin C-Reactive Protein NT-Pro-B Natriuret Pep Total Protein Albumin Urine WBC (Auto) Urine Creatinine 08/04/18 08/04/18 08/04/18 05:24 05:33 08:46 WBC RBC Hgb Hct MCV MCH MCHC RDW Lymph % (Auto) [place] % (Auto) Lymph # [place] # Seg Neutrophils % Seg Neuts % (Manual) Lymphocytes % (Manual) Monocytes % (Manual) Nucleated RBC % Seg Neutrophils # Seg Neutrophils # Man Lymphocytes # (Manual) Monocytes # (Manual) PT INR APTT D-Dimer Heparin Anti-Xa Level 0.76 H POC ABG pH POC ABG pCO2 65.7 H POC ABG pO2 63 L Sodium Potassium Chloride Carbon Dioxide BUN Creatinine Glucose POC Glucose 159 H Lactic Acid Calcium Phosphorus Total Bilirubin C-Reactive Protein NT-Pro-B Natriuret Pep Total Protein Albumin Urine WBC (Auto) Urine Creatinine 08/04/18 08/04/18 08/04/18 09:12 15:38 18:20 WBC RBC Hgb Hct MCV MCH MCHC RDW Lymph % (Auto) [place] % (Auto) Lymph # [place] # Seg Neutrophils % Seg Neuts % (Manual) Lymphocytes % (Manual) Monocytes % (Manual) Nucleated RBC % Seg Neutrophils # Seg Neutrophils # Man Lymphocytes # (Manual) Monocytes # (Manual) PT INR APTT D-Dimer Heparin Anti-Xa Level POC ABG pH POC ABG pCO2 POC ABG pO2 Sodium Potassium Chloride Carbon Dioxide BUN Creatinine Glucose POC Glucose 140 H 267 H 252 H Lactic Acid Calcium Phosphorus Total Bilirubin C-Reactive Protein NT-Pro-B Natriuret Pep Total Protein Albumin Urine WBC (Auto) Urine Creatinine 08/04/18 08/05/18 08/05/18 21:17 02:51 04:36 WBC RBC Hgb Hct MCV MCH MCHC RDW Lymph % (Auto) [place] % (Auto) Lymph # [place] # Seg Neutrophils % Seg Neuts % (Manual) Lymphocytes % (Manual) Monocytes % (Manual) Nucleated RBC % Seg Neutrophils # Seg Neutrophils # Man Lymphocytes # (Manual) Monocytes # (Manual) PT INR APTT D-Dimer Heparin Anti-Xa Level POC ABG pH POC ABG pCO2 POC ABG pO2 Sodium Potassium Chloride Carbon Dioxide BUN Creatinine Glucose POC Glucose 181 H 240 H 255 H Lactic Acid Calcium Phosphorus Total Bilirubin C-Reactive Protein NT-Pro-B Natriuret Pep Total Protein Albumin Urine WBC (Auto) Urine Creatinine 08/05/18 08/05/18 08/05/18 04:55 10:21 12:39 WBC 21.8 H RBC 3.18 L Hgb 10.3 L Hct 32.6 L MCV 103 H MCH 33 H MCHC RDW 16.3 H Lymph % (Auto) [place] % (Auto) Lymph # [place] # Seg Neutrophils % Seg Neuts % (Manual) 88.0 H Lymphocytes % (Manual) 4.0 L Monocytes % (Manual) Nucleated RBC % Seg Neutrophils # Seg Neutrophils # Man 19.2 H Lymphocytes # (Manual) 0.9 L Monocytes # (Manual) PT INR APTT D-Dimer Heparin Anti-Xa Level POC ABG pH 7.506 H POC ABG pCO2 56.0 H POC ABG pO2 63 L Sodium Potassium Chloride Carbon Dioxide BUN Creatinine Glucose POC Glucose 227 H Lactic Acid Calcium Phosphorus Total Bilirubin C-Reactive Protein NT-Pro-B Natriuret Pep Total Protein Albumin Urine WBC (Auto) Urine Creatinine 08/05/18 08/05/18 08/05/18 12:39 14:10 17:30 WBC RBC Hgb Hct MCV MCH MCHC RDW Lymph % (Auto) [place] % (Auto) Lymph # [place] # Seg Neutrophils % Seg Neuts % (Manual) Lymphocytes % (Manual) Monocytes % (Manual) Nucleated RBC % Seg Neutrophils # Seg Neutrophils # Man Lymphocytes # (Manual) Monocytes # (Manual) PT INR APTT D-Dimer Heparin Anti-Xa Level < 0.10 L POC ABG pH POC ABG pCO2 POC ABG pO2 Sodium Potassium Chloride 96.8 L Carbon Dioxide 38 H BUN 36 H Creatinine 0.6 L Glucose 218 H POC Glucose 221 H Lactic Acid Calcium Phosphorus Total Bilirubin C-Reactive Protein NT-Pro-B Natriuret Pep Total Protein Albumin Urine WBC (Auto) Urine Creatinine 08/05/18 08/05/18 08/06/18 18:32 23:32 02:26 WBC RBC Hgb Hct MCV MCH MCHC RDW Lymph % (Auto) [place] % (Auto) Lymph # [place] # Seg Neutrophils % Seg Neuts % (Manual) Lymphocytes % (Manual) Monocytes % (Manual) Nucleated RBC % Seg Neutrophils # Seg Neutrophils # Man Lymphocytes # (Manual) Monocytes # (Manual) PT INR APTT D-Dimer Heparin Anti-Xa Level POC ABG pH POC ABG pCO2 POC ABG pO2 Sodium Potassium Chloride Carbon Dioxide BUN Creatinine Glucose POC Glucose 253 H 215 H 227 H Lactic Acid Calcium Phosphorus Total Bilirubin C-Reactive Protein NT-Pro-B Natriuret Pep Total Protein Albumin Urine WBC (Auto) Urine Creatinine 08/06/18 08/06/18 08/06/18 05:17 05:17 05:32 WBC 18.9 H RBC 3.06 L Hgb 10.2 L Hct 31.3 L MCV 102 H MCH 33 H MCHC RDW 16.1 H Lymph % (Auto) [place] % (Auto) Lymph # [place] # Seg Neutrophils % Seg Neuts % (Manual) Lymphocytes % (Manual) Monocytes % (Manual) Nucleated RBC % Seg Neutrophils # Seg Neutrophils # Man Lymphocytes # (Manual) Monocytes # (Manual) PT INR APTT D-Dimer Heparin Anti-Xa Level POC ABG pH 7.468 H POC ABG pCO2 59.5 H POC ABG pO2 64 L Sodium Potassium Chloride Carbon Dioxide 37 H BUN 37 H Creatinine 0.5 L Glucose 226 H POC Glucose Lactic Acid Calcium Phosphorus Total Bilirubin C-Reactive Protein NT-Pro-B Natriuret Pep Total Protein Albumin Urine WBC (Auto) Urine Creatinine 08/06/18 08/06/18 08/06/18 10:11 15:03 17:48 WBC RBC Hgb Hct MCV MCH MCHC RDW Lymph % (Auto) [place] % (Auto) Lymph # [place] # Seg Neutrophils % Seg Neuts % (Manual) Lymphocytes % (Manual) Monocytes % (Manual) Nucleated RBC % Seg Neutrophils # Seg Neutrophils # Man Lymphocytes # (Manual) Monocytes # (Manual) PT INR APTT D-Dimer Heparin Anti-Xa Level POC ABG pH POC ABG pCO2 POC ABG pO2 Sodium Potassium Chloride Carbon Dioxide BUN Creatinine Glucose POC Glucose 207 H 229 H 188 H Lactic Acid Calcium Phosphorus Total Bilirubin C-Reactive Protein NT-Pro-B Natriuret Pep Total Protein Albumin Urine WBC (Auto) Urine Creatinine 08/06/18 08/07/18 08/07/18 22:53 01:55 05:30 WBC RBC Hgb Hct MCV MCH MCHC RDW Lymph % (Auto) [place] % (Auto) Lymph # [place] # Seg Neutrophils % Seg Neuts % (Manual) Lymphocytes % (Manual) Monocytes % (Manual) Nucleated RBC % Seg Neutrophils # Seg Neutrophils # Man Lymphocytes # (Manual) Monocytes # (Manual) PT INR APTT D-Dimer Heparin Anti-Xa Level POC ABG pH POC ABG pCO2 69.6 H POC ABG pO2 64 L Sodium Potassium Chloride Carbon Dioxide BUN Creatinine Glucose POC Glucose 146 H 143 H Lactic Acid Calcium Phosphorus Total Bilirubin C-Reactive Protein NT-Pro-B Natriuret Pep Total Protein Albumin Urine WBC (Auto) Urine Creatinine 08/07/18 08/07/18 08/07/18 09:59 14:16 15:08 WBC RBC Hgb 10.3 L Hct 32.2 L MCV MCH MCHC RDW Lymph % (Auto) [place] % (Auto) Lymph # [place] # Seg Neutrophils % Seg Neuts % (Manual) Lymphocytes % (Manual) Monocytes % (Manual) Nucleated RBC % Seg Neutrophils # Seg Neutrophils # Man Lymphocytes # (Manual) Monocytes # (Manual) PT INR APTT D-Dimer Heparin Anti-Xa Level POC ABG pH POC ABG pCO2 POC ABG pO2 Sodium Potassium Chloride Carbon Dioxide BUN Creatinine Glucose POC Glucose 188 H 223 H Lactic Acid Calcium Phosphorus Total Bilirubin C-Reactive Protein NT-Pro-B Natriuret Pep Total Protein Albumin Urine WBC (Auto) Urine Creatinine 08/07/18 08/07/18 08/07/18 15:08 17:39 22:04 WBC RBC Hgb Hct MCV MCH MCHC RDW Lymph % (Auto) [place] % (Auto) Lymph # [place] # Seg Neutrophils % Seg Neuts % (Manual) Lymphocytes % (Manual) Monocytes % (Manual) Nucleated RBC % Seg Neutrophils # Seg Neutrophils # Man Lymphocytes # (Manual) Monocytes # (Manual) PT INR APTT 23.2 L D-Dimer Heparin Anti-Xa Level POC ABG pH POC ABG pCO2 POC ABG pO2 Sodium Potassium Chloride Carbon Dioxide BUN Creatinine Glucose POC Glucose 208 H 163 H Lactic Acid Calcium Phosphorus Total Bilirubin C-Reactive Protein NT-Pro-B Natriuret Pep Total Protein Albumin Urine WBC (Auto) Urine Creatinine 08/07/18 08/08/18 08/08/18 22:30 01:57 02:09 WBC 14.6 H RBC 2.88 L Hgb 9.5 L Hct 29.9 L MCV 104 H MCH 33 H MCHC RDW 16.8 H Lymph % (Auto) [place] % (Auto) Lymph # [place] # Seg Neutrophils % Seg Neuts % (Manual) 73.0 H Lymphocytes % (Manual) 9.0 L Monocytes % (Manual) 10.0 H Nucleated RBC % Seg Neutrophils # Seg Neutrophils # Man 10.7 H Lymphocytes # (Manual) Monocytes # (Manual) 1.5 H PT INR APTT D-Dimer Heparin Anti-Xa Level 0.25 L POC ABG pH POC ABG pCO2 POC ABG pO2 Sodium Potassium Chloride Carbon Dioxide BUN Creatinine Glucose POC Glucose 120 H Lactic Acid Calcium Phosphorus Total Bilirubin C-Reactive Protein NT-Pro-B Natriuret Pep Total Protein Albumin Urine WBC (Auto) Urine Creatinine 08/08/18 08/08/18 08/08/18 02:09 04:58 05:19 WBC RBC Hgb Hct MCV MCH MCHC RDW Lymph % (Auto) [place] % (Auto) Lymph # [place] # Seg Neutrophils % Seg Neuts % (Manual) Lymphocytes % (Manual) Monocytes % (Manual) Nucleated RBC % Seg Neutrophils # Seg Neutrophils # Man Lymphocytes # (Manual) Monocytes # (Manual) PT INR APTT D-Dimer Heparin Anti-Xa Level POC ABG pH 7.461 H POC ABG pCO2 57.3 H POC ABG pO2 62 L Sodium Potassium Chloride Carbon Dioxide 39 H BUN 29 H Creatinine 0.5 L Glucose 124 H POC Glucose 139 H Lactic Acid Calcium Phosphorus Total Bilirubin C-Reactive Protein NT-Pro-B Natriuret Pep Total Protein Albumin Urine WBC (Auto) Urine Creatinine 08/08/18 08/08/18 08/08/18 10:22 14:52 16:12 WBC RBC Hgb Hct MCV MCH MCHC RDW Lymph % (Auto) [place] % (Auto) Lymph # [place] # Seg Neutrophils % Seg Neuts % (Manual) Lymphocytes % (Manual) Monocytes % (Manual) Nucleated RBC % Seg Neutrophils # Seg Neutrophils # Man Lymphocytes # (Manual) Monocytes # (Manual) PT INR APTT D-Dimer Heparin Anti-Xa Level POC ABG pH POC ABG pCO2 POC ABG pO2 Sodium Potassium Chloride Carbon Dioxide BUN Creatinine Glucose POC Glucose 169 H 149 H 136 H Lactic Acid Calcium Phosphorus Total Bilirubin C-Reactive Protein NT-Pro-B Natriuret Pep Total Protein Albumin Urine WBC (Auto) Urine Creatinine 08/09/18 08/09/18 08/09/18 02:26 03:52 03:52 WBC 15.9 H RBC 2.87 L Hgb 9.6 L Hct 30.7 L MCV 107 H MCH 34 H MCHC 31 L RDW 17.8 H Lymph % (Auto) 3.9 L [place] % (Auto) 8.1 H Lymph # 0.6 L [place] # 1.3 H Seg Neutrophils % 87.1 H Seg Neuts % (Manual) Lymphocytes % (Manual) Monocytes % (Manual) Nucleated RBC % Seg Neutrophils # 13.9 H Seg Neutrophils # Man Lymphocytes # (Manual) Monocytes # (Manual) PT INR APTT D-Dimer Heparin Anti-Xa Level 0.25 L POC ABG pH POC ABG pCO2 POC ABG pO2 Sodium Potassium Chloride Carbon Dioxide BUN Creatinine Glucose POC Glucose 126 H Lactic Acid Calcium Phosphorus Total Bilirubin C-Reactive Protein NT-Pro-B Natriuret Pep Total Protein Albumin Urine WBC (Auto) Urine Creatinine 08/09/18 08/09/18 08/09/18 03:52 05:34 06:48 WBC RBC Hgb Hct MCV MCH MCHC RDW Lymph % (Auto) [place] % (Auto) Lymph # [place] # Seg Neutrophils % Seg Neuts % (Manual) Lymphocytes % (Manual) Monocytes % (Manual) Nucleated RBC % Seg Neutrophils # Seg Neutrophils # Man Lymphocytes # (Manual) Monocytes # (Manual) PT INR APTT D-Dimer Heparin Anti-Xa Level POC ABG pH POC ABG pCO2 57.5 H POC ABG pO2 58 L Sodium Potassium Chloride Carbon Dioxide 39 H BUN 26 H Creatinine 0.5 L Glucose 128 H POC Glucose 171 H Lactic Acid Calcium Phosphorus Total Bilirubin C-Reactive Protein NT-Pro-B Natriuret Pep Total Protein Albumin Urine WBC (Auto) Urine Creatinine 08/09/18 08/09/18 08/09/18 09:28 09:36 13:44 WBC RBC Hgb Hct MCV MCH MCHC RDW Lymph % (Auto) [place] % (Auto) Lymph # [place] # Seg Neutrophils % Seg Neuts % (Manual) Lymphocytes % (Manual) Monocytes % (Manual) Nucleated RBC % Seg Neutrophils # Seg Neutrophils # Man Lymphocytes # (Manual) Monocytes # (Manual) PT INR APTT D-Dimer Heparin Anti-Xa Level 0.26 L POC ABG pH POC ABG pCO2 POC ABG pO2 Sodium Potassium Chloride Carbon Dioxide BUN Creatinine Glucose POC Glucose 183 H 184 H Lactic Acid Calcium Phosphorus Total Bilirubin C-Reactive Protein NT-Pro-B Natriuret Pep Total Protein Albumin Urine WBC (Auto) Urine Creatinine 08/09/18 08/10/18 08/10/18 17:55 04:49 05:20 WBC RBC Hgb Hct MCV MCH MCHC RDW Lymph % (Auto) [place] % (Auto) Lymph # [place] # Seg Neutrophils % Seg Neuts % (Manual) Lymphocytes % (Manual) Monocytes % (Manual) Nucleated RBC % Seg Neutrophils # Seg Neutrophils # Man Lymphocytes # (Manual) Monocytes # (Manual) PT INR APTT D-Dimer Heparin Anti-Xa Level POC ABG pH POC ABG pCO2 59.9 H POC ABG pO2 59 L Sodium Potassium Chloride Carbon Dioxide BUN Creatinine Glucose POC Glucose 148 H 59 L Lactic Acid Calcium Phosphorus Total Bilirubin C-Reactive Protein NT-Pro-B Natriuret Pep Total Protein Albumin Urine WBC (Auto) Urine Creatinine 08/10/18 08/10/18 08/10/18 05:53 17:12 21:17 WBC RBC Hgb Hct MCV MCH MCHC RDW Lymph % (Auto) [place] % (Auto) Lymph # [place] # Seg Neutrophils % Seg Neuts % (Manual) Lymphocytes % (Manual) Monocytes % (Manual) Nucleated RBC % Seg Neutrophils # Seg Neutrophils # Man Lymphocytes # (Manual) Monocytes # (Manual) PT INR APTT D-Dimer Heparin Anti-Xa Level POC ABG pH POC ABG pCO2 POC ABG pO2 Sodium Potassium Chloride Carbon Dioxide BUN Creatinine Glucose POC Glucose 128 H 110 H 109 H Lactic Acid Calcium Phosphorus Total Bilirubin C-Reactive Protein NT-Pro-B Natriuret Pep Total Protein Albumin Urine WBC (Auto) Urine Creatinine 08/11/18 08/11/18 08/11/18 00:54 02:28 04:17 WBC RBC Hgb 7.8 L Hct 24.1 L D MCV MCH MCHC RDW Lymph % (Auto) [place] % (Auto) Lymph # [place] # Seg Neutrophils % Seg Neuts % (Manual) Lymphocytes % (Manual) Monocytes % (Manual) Nucleated RBC % Seg Neutrophils # Seg Neutrophils # Man Lymphocytes # (Manual) Monocytes # (Manual) PT INR APTT D-Dimer Heparin Anti-Xa Level 0.19 L POC ABG pH POC ABG pCO2 POC ABG pO2 Sodium Potassium Chloride Carbon Dioxide BUN Creatinine Glucose POC Glucose 124 H Lactic Acid Calcium Phosphorus Total Bilirubin C-Reactive Protein NT-Pro-B Natriuret Pep Total Protein Albumin Urine WBC (Auto) Urine Creatinine 08/11/18 08/11/18 08/11/18 05:10 07:42 10:27 WBC RBC Hgb Hct MCV MCH MCHC RDW Lymph % (Auto) [place] % (Auto) Lymph # [place] # Seg Neutrophils % Seg Neuts % (Manual) Lymphocytes % (Manual) Monocytes % (Manual) Nucleated RBC % Seg Neutrophils # Seg Neutrophils # Man Lymphocytes # (Manual) Monocytes # (Manual) PT INR APTT D-Dimer Heparin Anti-Xa Level 0.20 L POC ABG pH POC ABG pCO2 POC ABG pO2 Sodium Potassium Chloride Carbon Dioxide BUN Creatinine Glucose POC Glucose 150 H 156 H Lactic Acid Calcium Phosphorus Total Bilirubin C-Reactive Protein NT-Pro-B Natriuret Pep Total Protein Albumin Urine WBC (Auto) Urine Creatinine 08/11/18 08/11/18 08/11/18 13:54 15:06 18:13 WBC RBC Hgb Hct MCV MCH MCHC RDW Lymph % (Auto) [place] % (Auto) Lymph # [place] # Seg Neutrophils % Seg Neuts % (Manual) Lymphocytes % (Manual) Monocytes % (Manual) Nucleated RBC % Seg Neutrophils # Seg Neutrophils # Man Lymphocytes # (Manual) Monocytes # (Manual) PT INR APTT D-Dimer Heparin Anti-Xa Level POC ABG pH 7.471 H POC ABG pCO2 45.5 H POC ABG pO2 79 L Sodium Potassium Chloride Carbon Dioxide BUN Creatinine Glucose POC Glucose 177 H 143 H Lactic Acid Calcium Phosphorus Total Bilirubin C-Reactive Protein NT-Pro-B Natriuret Pep Total Protein Albumin Urine WBC (Auto) Urine Creatinine 08/11/18 08/11/18 08/11/18 18:33 21:22 Unknown WBC RBC Hgb Hct MCV MCH MCHC RDW Lymph % (Auto) [place] % (Auto) Lymph # [place] # Seg Neutrophils % Seg Neuts % (Manual) Lymphocytes % (Manual) Monocytes % (Manual) Nucleated RBC % Seg Neutrophils # Seg Neutrophils # Man Lymphocytes # (Manual) Monocytes # (Manual) PT INR APTT D-Dimer Heparin Anti-Xa Level 0.29 L POC ABG pH POC ABG pCO2 POC ABG pO2 Sodium 136 L Potassium Chloride 96.5 L Carbon Dioxide 32 H D BUN Creatinine 0.5 L Glucose 186 H POC Glucose 151 H Lactic Acid Calcium Phosphorus Total Bilirubin C-Reactive Protein NT-Pro-B Natriuret Pep Total Protein Albumin Urine WBC (Auto) Urine Creatinine 08/11/18 08/12/18 08/12/18 Unknown 02:09 05:29 WBC 12.1 H RBC 2.50 L Hgb 8.2 L Hct 25.7 L MCV 103 H MCH 33 H MCHC RDW 17.0 H Lymph % (Auto) 5.1 L [place] % (Auto) 9.5 H Lymph # 0.6 L [place] # 1.2 H Seg Neutrophils % 84.8 H Seg Neuts % (Manual) Lymphocytes % (Manual) Monocytes % (Manual) Nucleated RBC % Seg Neutrophils # 10.3 H Seg Neutrophils # Man Lymphocytes # (Manual) Monocytes # (Manual) PT INR APTT D-Dimer Heparin Anti-Xa Level POC ABG pH POC ABG pCO2 POC ABG pO2 Sodium Potassium Chloride Carbon Dioxide BUN Creatinine Glucose POC Glucose 159 H 136 H Lactic Acid Calcium Phosphorus Total Bilirubin C-Reactive Protein NT-Pro-B Natriuret Pep Total Protein Albumin Urine WBC (Auto) Urine Creatinine 08/12/18 08/12/18 08/12/18 07:33 09:59 13:59 WBC RBC Hgb Hct MCV MCH MCHC RDW Lymph % (Auto) [place] % (Auto) Lymph # [place] # Seg Neutrophils % Seg Neuts % (Manual) Lymphocytes % (Manual) Monocytes % (Manual) Nucleated RBC % Seg Neutrophils # Seg Neutrophils # Man Lymphocytes # (Manual) Monocytes # (Manual) PT INR APTT D-Dimer Heparin Anti-Xa Level POC ABG pH POC ABG pCO2 POC ABG pO2 Sodium Potassium Chloride Carbon Dioxide BUN Creatinine Glucose POC Glucose 138 H 157 H 167 H Lactic Acid Calcium Phosphorus Total Bilirubin C-Reactive Protein NT-Pro-B Natriuret Pep Total Protein Albumin Urine WBC (Auto) Urine Creatinine 08/12/18 08/12/18 08/12/18 14:31 14:56 17:39 WBC RBC Hgb Hct MCV MCH MCHC RDW Lymph % (Auto) [place] % (Auto) Lymph # [place] # Seg Neutrophils % Seg Neuts % (Manual) Lymphocytes % (Manual) Monocytes % (Manual) Nucleated RBC % Seg Neutrophils # Seg Neutrophils # Man Lymphocytes # (Manual) Monocytes # (Manual) PT INR APTT D-Dimer Heparin Anti-Xa Level 1.18 H POC ABG pH 7.466 H POC ABG pCO2 POC ABG pO2 58 L Sodium Potassium Chloride Carbon Dioxide BUN Creatinine Glucose POC Glucose 168 H Lactic Acid Calcium Phosphorus Total Bilirubin C-Reactive Protein NT-Pro-B Natriuret Pep Total Protein Albumin Urine WBC (Auto) Urine Creatinine 08/12/18 08/13/18 08/13/18 21:38 02:17 05:20 WBC RBC Hgb 8.0 L Hct 24.5 L MCV MCH MCHC RDW Lymph % (Auto) [place] % (Auto) Lymph # [place] # Seg Neutrophils % Seg Neuts % (Manual) Lymphocytes % (Manual) Monocytes % (Manual) Nucleated RBC % Seg Neutrophils # Seg Neutrophils # Man Lymphocytes # (Manual) Monocytes # (Manual) PT INR APTT D-Dimer Heparin Anti-Xa Level POC ABG pH POC ABG pCO2 POC ABG pO2 Sodium Potassium Chloride Carbon Dioxide BUN Creatinine Glucose POC Glucose 168 H 157 H Lactic Acid Calcium Phosphorus Total Bilirubin C-Reactive Protein NT-Pro-B Natriuret Pep Total Protein Albumin Urine WBC (Auto) Urine Creatinine 08/13/18 08/13/18 08/13/18 09:28 10:07 14:09 WBC RBC Hgb Hct MCV MCH MCHC RDW Lymph % (Auto) [place] % (Auto) Lymph # [place] # Seg Neutrophils % Seg Neuts % (Manual) Lymphocytes % (Manual) Monocytes % (Manual) Nucleated RBC % Seg Neutrophils # Seg Neutrophils # Man Lymphocytes # (Manual) Monocytes # (Manual) PT INR APTT D-Dimer Heparin Anti-Xa Level POC ABG pH 7.453 H POC ABG pCO2 47.5 H POC ABG pO2 Sodium Potassium Chloride Carbon Dioxide BUN Creatinine Glucose POC Glucose 177 H 178 H Lactic Acid Calcium Phosphorus Total Bilirubin C-Reactive Protein NT-Pro-B Natriuret Pep Total Protein Albumin Urine WBC (Auto) Urine Creatinine 08/13/18 08/13/18 08/14/18 17:33 21:28 01:58 WBC RBC Hgb Hct MCV MCH MCHC RDW Lymph % (Auto) [place] % (Auto) Lymph # [place] # Seg Neutrophils % Seg Neuts % (Manual) Lymphocytes % (Manual) Monocytes % (Manual) Nucleated RBC % Seg Neutrophils # Seg Neutrophils # Man Lymphocytes # (Manual) Monocytes # (Manual) PT INR APTT D-Dimer Heparin Anti-Xa Level POC ABG pH POC ABG pCO2 POC ABG pO2 Sodium Potassium Chloride Carbon Dioxide BUN Creatinine Glucose POC Glucose 130 H 145 H 161 H Lactic Acid Calcium Phosphorus Total Bilirubin C-Reactive Protein NT-Pro-B Natriuret Pep Total Protein Albumin Urine WBC (Auto) Urine Creatinine 08/14/18 08/14/18 08/14/18 05:22 06:10 09:59 WBC RBC Hgb Hct MCV MCH MCHC RDW Lymph % (Auto) [place] % (Auto) Lymph # [place] # Seg Neutrophils % Seg Neuts % (Manual) Lymphocytes % (Manual) Monocytes % (Manual) Nucleated RBC % Seg Neutrophils # Seg Neutrophils # Man Lymphocytes # (Manual) Monocytes # (Manual) PT INR APTT D-Dimer Heparin Anti-Xa Level POC ABG pH POC ABG pCO2 POC ABG pO2 Sodium Potassium Chloride Carbon Dioxide BUN Creatinine 0.5 L Glucose 125 H POC Glucose 117 H 107 H Lactic Acid Calcium Phosphorus Total Bilirubin C-Reactive Protein NT-Pro-B Natriuret Pep Total Protein Albumin Urine WBC (Auto) Urine Creatinine 08/14/18 08/14/18 08/14/18 14:04 17:49 21:27 WBC RBC Hgb Hct MCV MCH MCHC RDW Lymph % (Auto) [place] % (Auto) Lymph # [place] # Seg Neutrophils % Seg Neuts % (Manual) Lymphocytes % (Manual) Monocytes % (Manual) Nucleated RBC % Seg Neutrophils # Seg Neutrophils # Man Lymphocytes # (Manual) Monocytes # (Manual) PT INR APTT D-Dimer Heparin Anti-Xa Level POC ABG pH POC ABG pCO2 POC ABG pO2 Sodium Potassium Chloride Carbon Dioxide BUN Creatinine Glucose POC Glucose 137 H 150 H 149 H Lactic Acid Calcium Phosphorus Total Bilirubin C-Reactive Protein NT-Pro-B Natriuret Pep Total Protein Albumin Urine WBC (Auto) Urine Creatinine 08/14/18 08/15/18 08/15/18 21:55 01:50 03:12 WBC 13.3 H RBC 2.79 L Hgb 9.3 L 8.4 L Hct 28.6 L 25.7 L MCV 102 H MCH 33 H MCHC RDW 16.6 H Lymph % (Auto) [place] % (Auto) Lymph # [place] # Seg Neutrophils % Seg Neuts % (Manual) Lymphocytes % (Manual) Monocytes % (Manual) Nucleated RBC % Seg Neutrophils # Seg Neutrophils # Man Lymphocytes # (Manual) Monocytes # (Manual) PT INR APTT D-Dimer Heparin Anti-Xa Level POC ABG pH POC ABG pCO2 POC ABG pO2 Sodium Potassium Chloride Carbon Dioxide BUN Creatinine Glucose POC Glucose 186 H Lactic Acid Calcium Phosphorus Total Bilirubin C-Reactive Protein NT-Pro-B Natriuret Pep Total Protein Albumin Urine WBC (Auto) Urine Creatinine 08/15/18 08/15/18 08/15/18 09:55 11:45 13:47 WBC RBC 2.38 L Hgb 8.0 L Hct 24.5 L MCV 103 H MCH 34 H MCHC RDW 16.8 H Lymph % (Auto) 4.9 L [place] % (Auto) Lymph # 0.5 L [place] # Seg Neutrophils % 88.1 H Seg Neuts % (Manual) Lymphocytes % (Manual) Monocytes % (Manual) Nucleated RBC % Seg Neutrophils # 9.6 H Seg Neutrophils # Man Lymphocytes # (Manual) Monocytes # (Manual) PT INR APTT D-Dimer Heparin Anti-Xa Level POC ABG pH POC ABG pCO2 POC ABG pO2 Sodium Potassium Chloride Carbon Dioxide BUN Creatinine Glucose POC Glucose 133 H 142 H Lactic Acid Calcium Phosphorus Total Bilirubin C-Reactive Protein NT-Pro-B Natriuret Pep Total Protein Albumin Urine WBC (Auto) Urine Creatinine 08/15/18 08/15/18 08/16/18 17:54 21:58 02:20 WBC RBC Hgb Hct MCV MCH MCHC RDW Lymph % (Auto) [place] % (Auto) Lymph # [place] # Seg Neutrophils % Seg Neuts % (Manual) Lymphocytes % (Manual) Monocytes % (Manual) Nucleated RBC % Seg Neutrophils # Seg Neutrophils # Man Lymphocytes # (Manual) Monocytes # (Manual) PT INR APTT D-Dimer Heparin Anti-Xa Level POC ABG pH POC ABG pCO2 POC ABG pO2 Sodium Potassium Chloride Carbon Dioxide BUN Creatinine Glucose POC Glucose 131 H 157 H 108 H Lactic Acid Calcium Phosphorus Total Bilirubin C-Reactive Protein NT-Pro-B Natriuret Pep Total Protein Albumin Urine WBC (Auto) Urine Creatinine 08/16/18 08/16/18 08/16/18 05:16 10:20 10:23 WBC RBC Hgb Hct MCV MCH MCHC RDW Lymph % (Auto) [place] % (Auto) Lymph # [place] # Seg Neutrophils % Seg Neuts % (Manual) Lymphocytes % (Manual) Monocytes % (Manual) Nucleated RBC % Seg Neutrophils # Seg Neutrophils # Man Lymphocytes # (Manual) Monocytes # (Manual) PT INR APTT D-Dimer Heparin Anti-Xa Level POC ABG pH POC ABG pCO2 POC ABG pO2 63 L Sodium Potassium Chloride Carbon Dioxide BUN Creatinine Glucose POC Glucose 115 H 146 H Lactic Acid Calcium Phosphorus Total Bilirubin C-Reactive Protein NT-Pro-B Natriuret Pep Total Protein Albumin Urine WBC (Auto) Urine Creatinine 08/16/18 08/16/18 08/16/18 11:06 14:05 18:04 WBC RBC 2.82 L Hgb 9.2 L Hct 28.8 L MCV 102 H MCH 33 H MCHC RDW 16.4 H Lymph % (Auto) 3.8 L [place] % (Auto) Lymph # 0.4 L [place] # Seg Neutrophils % 89.5 H Seg Neuts % (Manual) Lymphocytes % (Manual) Monocytes % (Manual) Nucleated RBC % Seg Neutrophils # 9.1 H Seg Neutrophils # Man Lymphocytes # (Manual) Monocytes # (Manual) PT INR APTT D-Dimer Heparin Anti-Xa Level POC ABG pH POC ABG pCO2 POC ABG pO2 Sodium Potassium Chloride Carbon Dioxide BUN Creatinine Glucose POC Glucose 139 H 144 H Lactic Acid Calcium Phosphorus Total Bilirubin C-Reactive Protein NT-Pro-B Natriuret Pep Total Protein Albumin Urine WBC (Auto) Urine Creatinine 08/16/18 08/17/18 08/17/18 21:50 03:51 04:59 WBC RBC Hgb Hct MCV MCH MCHC RDW Lymph % (Auto) [place] % (Auto) Lymph # [place] # Seg Neutrophils % Seg Neuts % (Manual) Lymphocytes % (Manual) Monocytes % (Manual) Nucleated RBC % Seg Neutrophils # Seg Neutrophils # Man Lymphocytes # (Manual) Monocytes # (Manual) PT INR APTT D-Dimer Heparin Anti-Xa Level POC ABG pH POC ABG pCO2 POC ABG pO2 Sodium Potassium Chloride Carbon Dioxide BUN Creatinine 0.5 L Glucose 134 H POC Glucose 147 H 135 H Lactic Acid Calcium Phosphorus Total Bilirubin C-Reactive Protein NT-Pro-B Natriuret Pep Total Protein Albumin Urine WBC (Auto) Urine Creatinine 08/17/18 08/17/18 08/17/18 12:07 18:04 21:38 WBC RBC Hgb Hct MCV MCH MCHC RDW Lymph % (Auto) [place] % (Auto) Lymph # [place] # Seg Neutrophils % Seg Neuts % (Manual) Lymphocytes % (Manual) Monocytes % (Manual) Nucleated RBC % Seg Neutrophils # Seg Neutrophils # Man Lymphocytes # (Manual) Monocytes # (Manual) PT INR APTT D-Dimer Heparin Anti-Xa Level POC ABG pH POC ABG pCO2 55.6 H POC ABG pO2 65 L Sodium Potassium Chloride Carbon Dioxide BUN Creatinine Glucose POC Glucose 160 H 115 H Lactic Acid Calcium Phosphorus Total Bilirubin C-Reactive Protein NT-Pro-B Natriuret Pep Total Protein Albumin Urine WBC (Auto) Urine Creatinine 08/17/18 08/18/18 08/18/18 21:47 01:42 05:42 WBC RBC Hgb Hct MCV MCH MCHC RDW Lymph % (Auto) [place] % (Auto) Lymph # [place] # Seg Neutrophils % Seg Neuts % (Manual) Lymphocytes % (Manual) Monocytes % (Manual) Nucleated RBC % Seg Neutrophils # Seg Neutrophils # Man Lymphocytes # (Manual) Monocytes # (Manual) PT INR APTT D-Dimer Heparin Anti-Xa Level POC ABG pH POC ABG pCO2 POC ABG pO2 Sodium Potassium Chloride Carbon Dioxide BUN Creatinine Glucose POC Glucose 110 H 124 H 127 H Lactic Acid Calcium Phosphorus Total Bilirubin C-Reactive Protein NT-Pro-B Natriuret Pep Total Protein Albumin Urine WBC (Auto) Urine Creatinine 08/18/18 08/18/18 08/18/18 09:51 14:37 21:37 WBC RBC Hgb Hct MCV MCH MCHC RDW Lymph % (Auto) [place] % (Auto) Lymph # [place] # Seg Neutrophils % Seg Neuts % (Manual) Lymphocytes % (Manual) Monocytes % (Manual) Nucleated RBC % Seg Neutrophils # Seg Neutrophils # Man Lymphocytes # (Manual) Monocytes # (Manual) PT INR APTT D-Dimer Heparin Anti-Xa Level POC ABG pH POC ABG pCO2 POC ABG pO2 Sodium Potassium Chloride Carbon Dioxide BUN Creatinine Glucose POC Glucose 162 H 130 H 133 H Lactic Acid Calcium Phosphorus Total Bilirubin C-Reactive Protein NT-Pro-B Natriuret Pep Total Protein Albumin Urine WBC (Auto) Urine Creatinine 08/19/18 08/19/18 08/19/18 01:47 04:55 04:55 WBC RBC 2.86 L Hgb 9.4 L Hct 28.6 L MCV 100 H MCH 33 H MCHC RDW 16.6 H Lymph % (Auto) [place] % (Auto) Lymph # [place] # Seg Neutrophils % Seg Neuts % (Manual) Lymphocytes % (Manual) Monocytes % (Manual) Nucleated RBC % Seg Neutrophils # Seg Neutrophils # Man Lymphocytes # (Manual) Monocytes # (Manual) PT INR APTT D-Dimer Heparin Anti-Xa Level POC ABG pH POC ABG pCO2 POC ABG pO2 Sodium Potassium Chloride 97.8 L Carbon Dioxide 32 H BUN Creatinine 0.4 L Glucose 116 H POC Glucose 136 H Lactic Acid Calcium Phosphorus Total Bilirubin C-Reactive Protein NT-Pro-B Natriuret Pep Total Protein Albumin Urine WBC (Auto) Urine Creatinine 08/19/18 08/19/18 08/19/18 05:16 05:41 11:49 WBC RBC Hgb Hct MCV MCH MCHC RDW Lymph % (Auto) [place] % (Auto) Lymph # [place] # Seg Neutrophils % Seg Neuts % (Manual) Lymphocytes % (Manual) Monocytes % (Manual) Nucleated RBC % Seg Neutrophils # Seg Neutrophils # Man Lymphocytes # (Manual) Monocytes # (Manual) PT INR APTT D-Dimer Heparin Anti-Xa Level POC ABG pH POC ABG pCO2 57.5 H POC ABG pO2 65 L Sodium Potassium Chloride Carbon Dioxide BUN Creatinine Glucose POC Glucose 119 H 143 H Lactic Acid Calcium Phosphorus Total Bilirubin C-Reactive Protein NT-Pro-B Natriuret Pep Total Protein Albumin Urine WBC (Auto) Urine Creatinine 08/19/18 08/19/18 08/20/18 15:13 21:45 06:03 WBC RBC Hgb Hct MCV MCH MCHC RDW Lymph % (Auto) [place] % (Auto) Lymph # [place] # Seg Neutrophils % Seg Neuts % (Manual) Lymphocytes % (Manual) Monocytes % (Manual) Nucleated RBC % Seg Neutrophils # Seg Neutrophils # Man Lymphocytes # (Manual) Monocytes # (Manual) PT INR APTT D-Dimer Heparin Anti-Xa Level POC ABG pH POC ABG pCO2 POC ABG pO2 Sodium Potassium Chloride Carbon Dioxide BUN Creatinine Glucose POC Glucose 155 H 127 H 160 H Lactic Acid Calcium Phosphorus Total Bilirubin C-Reactive Protein NT-Pro-B Natriuret Pep Total Protein Albumin Urine WBC (Auto) Urine Creatinine 08/20/18 08/20/18 08/21/18 12:00 22:10 05:32 WBC RBC Hgb Hct MCV MCH MCHC RDW Lymph % (Auto) [place] % (Auto) Lymph # [place] # Seg Neutrophils % Seg Neuts % (Manual) Lymphocytes % (Manual) Monocytes % (Manual) Nucleated RBC % Seg Neutrophils # Seg Neutrophils # Man Lymphocytes # (Manual) Monocytes # (Manual) PT INR APTT D-Dimer Heparin Anti-Xa Level POC ABG pH POC ABG pCO2 POC ABG pO2 Sodium Potassium Chloride Carbon Dioxide BUN Creatinine Glucose POC Glucose 143 H 125 H 121 H Lactic Acid Calcium Phosphorus Total Bilirubin C-Reactive Protein NT-Pro-B Natriuret Pep Total Protein Albumin Urine WBC (Auto) Urine Creatinine 08/21/18 08/21/18 08/22/18 17:37 22:19 05:30 WBC RBC Hgb Hct MCV MCH MCHC RDW Lymph % (Auto) [place] % (Auto) Lymph # [place] # Seg Neutrophils % Seg Neuts % (Manual) Lymphocytes % (Manual) Monocytes % (Manual) Nucleated RBC % Seg Neutrophils # Seg Neutrophils # Man Lymphocytes # (Manual) Monocytes # (Manual) PT INR APTT D-Dimer Heparin Anti-Xa Level POC ABG pH POC ABG pCO2 POC ABG pO2 Sodium Potassium Chloride Carbon Dioxide BUN Creatinine Glucose POC Glucose 126 H 129 H 147 H Lactic Acid Calcium Phosphorus Total Bilirubin C-Reactive Protein NT-Pro-B Natriuret Pep Total Protein Albumin Urine WBC (Auto) Urine Creatinine 08/22/18 16:22 WBC RBC Hgb Hct MCV MCH MCHC RDW Lymph % (Auto) [place] % (Auto) Lymph # [place] # Seg Neutrophils % Seg Neuts % (Manual) Lymphocytes % (Manual) Monocytes % (Manual) Nucleated RBC % Seg Neutrophils # Seg Neutrophils # Man Lymphocytes # (Manual) Monocytes # (Manual) PT INR APTT D-Dimer Heparin Anti-Xa Level POC ABG pH POC ABG pCO2 POC ABG pO2 Sodium Potassium Chloride Carbon Dioxide BUN Creatinine Glucose POC Glucose 141 H Lactic Acid Calcium Phosphorus Total Bilirubin C-Reactive Protein NT-Pro-B Natriuret Pep Total Protein Albumin Urine WBC (Auto) Urine Creatinine Chest x-ray: report reviewed (Reported pulmonary infiltrates right upper lobe and left lower lobe.), image reviewed Allied health notes reviewed: nursing
[2018-08-22] MEDS: LANTUS SUB-Q SCH (22:01)
[2018-08-23 05:04] LABS: Hemoglobin 9.7 gm/dl (11.8-15.2); Mean Corpuscular HGB Conc 33 % (32-34); Mean Corpuscular Volume 102 fl (84-94); Platelet Count 509 K/mm3 (140-440); Red Blood Count 2.94 M/mm3 (3.65-5.03)
[2018-08-23 05:25] LABS: BUN/Creatinine Ratio 32; Blood Urea Nitrogen 16 mg/dL (9-20); Calcium 8.8 mg/dL (8.4-10.2); Hemolysis Index 0
[2018-08-23] MEDS: TYLENOL FEEDTUBE PRN ×2 (06:13→22:12)
[2018-08-23] MEDS: HumaLOG SUB-Q SCH ×2 (06:16→22:13)
[2018-08-23] MEDS: PULMICORT IH SCH ×2 (08:30→21:02)
[2018-08-23] MEDS: BROVANA NEBU IH SCH ×2 (08:30→21:02)
--- NOTE | 2018-08-23 09:47 | Progress Note ---
Assessment and Plan Patient alert, awake. Resting on T tube. FIO2 35% O2 saturation 92%. No acute respiratory distress.Patient undergoing bed side physical therapy - Patient Problems (1) Acute respiratory failure Current Visit: Yes Status: Acute Qualifiers: Respiratory failure complication: hypoxia Qualified Code(s): J96.01 - Acute respiratory failure with hypoxia Plan to address problem: T tube FIO2 35%. Brovanna/Budesonide aerosol treatments q 12 hours. Albuterol/atrovent aerosol treatments q 6 hours PRN for shortness of breath. Patient is on Apixaban. Continue famotidine. (2) Atrial fibrillation with RVR Current Visit: Yes Status: Acute Plan to address problem: Patient is on Apixaban. Management as per cardiology. (3) CHF (congestive heart failure) Current Visit: Yes Status: Acute Qualifiers: Heart failure type: systolic Heart failure chronicity: acute Qualified Code(s): I50.21 - Acute systolic (congestive) heart failure Plan to address problem: Management as per primary care and cardiology. (4) Pneumonia Current Visit: Yes Status: Acute Plan to address problem: Finished course of cefepime. (5) COPD (chronic obstructive pulmonary disease) Current Visit: Yes Status: Chronic Plan to address problem: T tube FIO2 35%. Brovanna/Budesonide aerosol treatments q 12 hours. Albuterol/atrovent aerosol treatments q 6 hours PRN for shortness of breath. Patient is on Apixaban. Continue famotidine. (6) Hypertension Current Visit: Yes Status: Chronic Qualifiers: Hypertension type: essential hypertension Qualified Code(s): I10 - Essential (primary) hypertension Plan to address problem: Management as per primary care. Subjective Date of service: 08/23/18 Principal diagnosis: Acute hypoxemic respiratory failure; A-fib with RVR; Possible CHF; H/O DVT Interval history: Patient alert, awake. Resting on T tube. FIO2 35% O2 saturation 92%. No acute respiratory distress.Patient undergoing bed side physical therapy Objective Vital Signs - 12hr 08/22/18 08/22/18 08/22/18 22:00 22:01 23:00 Temperature Pulse Rate 80 80 77 Pulse Rate [ Bilateral] Pulse Rate [ From Monitor] Respiratory 11 L 23 Rate Respiratory Rate [Bilateral ] Blood Pressure 124/71 127/58 O2 Sat by Pulse 91 91 Oximetry O2 Sat by Pulse Oximetry [ Assessment] 08/23/18 08/23/18 08/23/18 00:00 01:01 02:00 Temperature 97.8 F Pulse Rate 79 91 H 75 Pulse Rate [ Bilateral] Pulse Rate [ 78 From Monitor] Respiratory 27 H 26 H 22 Rate Respiratory Rate [Bilateral ] Blood Pressure 111/62 124/74 119/62 O2 Sat by Pulse 92 93 90 Oximetry O2 Sat by Pulse Oximetry [ Assessment] 08/23/18 08/23/18 08/23/18 03:00 04:00 04:01 Temperature 98.6 F Pulse Rate 76 84 Pulse Rate [ Bilateral] Pulse Rate [ 77 From Monitor] Respiratory 29 H 24 16 Rate Respiratory Rate [Bilateral ] Blood Pressure 117/61 120/68 O2 Sat by Pulse 91 95 92 Oximetry O2 Sat by Pulse Oximetry [ Assessment] 08/23/18 08/23/18 08/23/18 05:01 06:01 08:31 Temperature Pulse Rate 77 76 Pulse Rate [ 75 Bilateral] Pulse Rate [ From Monitor] Respiratory 17 16 Rate Respiratory 26 H Rate [Bilateral ] Blood Pressure 120/56 131/68 O2 Sat by Pulse 93 94 Oximetry O2 Sat by Pulse Oximetry [ Assessment] 08/23/18 08/23/18 08:32 08:33 Temperature Pulse Rate Pulse Rate [ Bilateral] Pulse Rate [ From Monitor] Respiratory Rate Respiratory Rate [Bilateral ] Blood Pressure O2 Sat by Pulse 92 Oximetry O2 Sat by Pulse 90 Oximetry [ Assessment] Constitutional: no acute distress, alert, other (elderly looking CM, normocephalic and atraumatic with normal respiratory effort) Eyes: non-icteric ENT: oropharynx moist, other (s/p tracheosomy) Neck: supple, no lymphadenopathy, no JVD, other (No thyromegaly) Effort: mildly labored Ascultation: Bilateral: diminished breath sounds, rhonchi Percussion: Bilateral: not dull Cardiovascular: irregular rhythm, other (+ systolic murmur) Gastrointestinal: normoactive bowel sounds, soft, non-tender, non-distended, other (No palpable HSM) Integumentary: rash, other (upper extremity edema) Extremities: no cyanosis, pink and warm, pulses normal, no ischemia or petechiae Neurologic: normal mental status, non-focal exam (grossly), pupils equal and round, CN II-XII normal, other (moves all extemities) Psychiatric: mood appropriate, affect normal CBC and BMP: 08/23/18 04:37 08/23/18 04:37 ABG, PT/INR, D-dimer: ABG POC ABG pH 7.370 (7.35-7.45) 08/19/18 05:16 POC ABG pCO2 57.5 (35-45) H 08/19/18 05:16 POC ABG pO2 65 (80-105) L 08/19/18 05:16 POC ABG HCO3 33.2 08/19/18 05:16 POC ABG Total CO2 35 08/19/18 05:16 POC ABG O2 Sat 91 08/19/18 05:16 PT/INR, D-dimer PT 13.4 Sec. (12.2-14.9) 08/07/18 15:08 INR 0.98 (0.87-1.13) 08/07/18 15:08 D-Dimer 798.17 ng/mlDDU (0-234) H 07/27/18 15:52 Abnormal lab findings: Abnormal Labs 07/27/18 07/27/18 07/27/18 12:59 12:59 12:59 WBC 15.8 H RBC Hgb Hct MCV 104 H MCH 34 H MCHC RDW 16.3 H Plt Count Lymph % (Auto) [place] % (Auto) Lymph # [place] # Seg Neutrophils % Seg Neuts % (Manual) 88.0 H Lymphocytes % (Manual) 3.0 L Monocytes % (Manual) Nucleated RBC % Seg Neutrophils # Seg Neutrophils # Man 13.9 H Lymphocytes # (Manual) 0.5 L Monocytes # (Manual) PT 17.0 H INR 1.34 H APTT D-Dimer Heparin Anti-Xa Level POC ABG pH POC ABG pCO2 POC ABG pO2 Sodium Potassium Chloride Carbon Dioxide 21 L BUN 38 H Creatinine 1.6 H Glucose POC Glucose Lactic Acid Calcium Phosphorus Total Bilirubin 1.30 H C-Reactive Protein NT-Pro-B Natriuret Pep 3913 H Total Protein 6.2 L Albumin 3.6 L Urine WBC (Auto) Urine Creatinine 07/27/18 07/27/18 07/27/18 15:52 16:12 17:09 WBC RBC Hgb Hct MCV MCH MCHC RDW Plt Count Lymph % (Auto) [place] % (Auto) Lymph # [place] # Seg Neutrophils % Seg Neuts % (Manual) Lymphocytes % (Manual) Monocytes % (Manual) Nucleated RBC % Seg Neutrophils # Seg Neutrophils # Man Lymphocytes # (Manual) Monocytes # (Manual) PT 16.0 H INR 1.24 H APTT D-Dimer 798.17 H Heparin Anti-Xa Level POC ABG pH POC ABG pCO2 POC ABG pO2 Sodium Potassium Chloride Carbon Dioxide BUN Creatinine Glucose POC Glucose Lactic Acid 5.00 H* Calcium Phosphorus Total Bilirubin C-Reactive Protein NT-Pro-B Natriuret Pep Total Protein Albumin Urine WBC (Auto) Urine Creatinine 07/27/18 07/27/18 07/27/18 17:59 18:07 21:31 WBC RBC Hgb Hct MCV MCH MCHC RDW Plt Count Lymph % (Auto) [place] % (Auto) Lymph # [place] # Seg Neutrophils % Seg Neuts % (Manual) Lymphocytes % (Manual) Monocytes % (Manual) Nucleated RBC % Seg Neutrophils # Seg Neutrophils # Man Lymphocytes # (Manual) Monocytes # (Manual) PT INR APTT D-Dimer Heparin Anti-Xa Level POC ABG pH 7.344 L POC ABG pCO2 POC ABG pO2 36 L Sodium Potassium Chloride Carbon Dioxide BUN Creatinine Glucose POC Glucose Lactic Acid 5.20 H* 5.00 H* Calcium Phosphorus Total Bilirubin C-Reactive Protein NT-Pro-B Natriuret Pep Total Protein Albumin Urine WBC (Auto) Urine Creatinine 07/27/18 07/27/18 07/27/18 21:57 22:42 23:26 WBC RBC Hgb Hct MCV MCH MCHC RDW Plt Count Lymph % (Auto) [place] % (Auto) Lymph # [place] # Seg Neutrophils % Seg Neuts % (Manual) Lymphocytes % (Manual) Monocytes % (Manual) Nucleated RBC % Seg Neutrophils # Seg Neutrophils # Man Lymphocytes # (Manual) Monocytes # (Manual) PT INR APTT D-Dimer Heparin Anti-Xa Level POC ABG pH 7.199 L POC ABG pCO2 62.0 H POC ABG pO2 Sodium Potassium Chloride Carbon Dioxide BUN Creatinine Glucose POC Glucose Lactic Acid 4.70 H* 5.00 H* Calcium Phosphorus Total Bilirubin C-Reactive Protein NT-Pro-B Natriuret Pep Total Protein Albumin Urine WBC (Auto) Urine Creatinine 07/28/18 07/28/18 07/28/18 00:45 05:40 05:58 WBC RBC Hgb Hct MCV MCH MCHC RDW Plt Count Lymph % (Auto) [place] % (Auto) Lymph # [place] # Seg Neutrophils % Seg Neuts % (Manual) Lymphocytes % (Manual) Monocytes % (Manual) Nucleated RBC % Seg Neutrophils # Seg Neutrophils # Man Lymphocytes # (Manual) Monocytes # (Manual) PT INR APTT D-Dimer Heparin Anti-Xa Level 0.11 L POC ABG pH 7.186 L POC ABG pCO2 60.1 H POC ABG pO2 68 L Sodium Potassium Chloride Carbon Dioxide BUN Creatinine Glucose POC Glucose Lactic Acid 4.70 H* Calcium Phosphorus Total Bilirubin C-Reactive Protein NT-Pro-B Natriuret Pep Total Protein Albumin Urine WBC (Auto) Urine Creatinine 07/28/18 07/28/18 07/28/18 06:01 06:01 07:19 WBC 12.5 H RBC 3.51 L Hgb 11.5 L Hct MCV 104 H MCH 33 H MCHC RDW 16.6 H Plt Count Lymph % (Auto) [place] % (Auto) Lymph # [place] # Seg Neutrophils % Seg Neuts % (Manual) Lymphocytes % (Manual) Monocytes % (Manual) Nucleated RBC % Seg Neutrophils # Seg Neutrophils # Man Lymphocytes # (Manual) Monocytes # (Manual) PT INR APTT D-Dimer Heparin Anti-Xa Level 0.14 L POC ABG pH POC ABG pCO2 POC ABG pO2 Sodium 135 L Potassium 5.1 H Chloride 95.0 L Carbon Dioxide 21 L BUN 54 H Creatinine 2.6 H D Glucose POC Glucose Lactic Acid Calcium Phosphorus Total Bilirubin C-Reactive Protein NT-Pro-B Natriuret Pep Total Protein Albumin Urine WBC (Auto) Urine Creatinine 07/28/18 07/28/18 07/28/18 07:19 09:20 11:06 WBC RBC Hgb Hct MCV MCH MCHC RDW Plt Count Lymph % (Auto) [place] % (Auto) Lymph # [place] # Seg Neutrophils % Seg Neuts % (Manual) Lymphocytes % (Manual) Monocytes % (Manual) Nucleated RBC % Seg Neutrophils # Seg Neutrophils # Man Lymphocytes # (Manual) Monocytes # (Manual) PT INR APTT D-Dimer Heparin Anti-Xa Level POC ABG pH 7.266 L POC ABG pCO2 49.7 H POC ABG pO2 74 L Sodium Potassium Chloride Carbon Dioxide BUN Creatinine Glucose POC Glucose Lactic Acid 4.00 H* 3.90 H* Calcium Phosphorus Total Bilirubin C-Reactive Protein NT-Pro-B Natriuret Pep Total Protein Albumin Urine WBC (Auto) Urine Creatinine 07/28/18 07/28/18 07/28/18 15:06 20:45 23:36 WBC RBC Hgb Hct MCV MCH MCHC RDW Plt Count Lymph % (Auto) [place] % (Auto) Lymph # [place] # Seg Neutrophils % Seg Neuts % (Manual) Lymphocytes % (Manual) Monocytes % (Manual) Nucleated RBC % Seg Neutrophils # Seg Neutrophils # Man Lymphocytes # (Manual) Monocytes # (Manual) PT INR APTT D-Dimer Heparin Anti-Xa Level 0.15 L POC ABG pH POC ABG pCO2 POC ABG pO2 Sodium 134 L Potassium 5.2 H Chloride Carbon Dioxide BUN 58 H Creatinine 2.1 H Glucose 110 H POC Glucose 125 H Lactic Acid Calcium Phosphorus Total Bilirubin C-Reactive Protein NT-Pro-B Natriuret Pep Total Protein Albumin Urine WBC (Auto) Urine Creatinine 07/29/18 07/29/18 07/29/18 01:12 04:21 04:21 WBC RBC 3.21 L Hgb 10.8 L Hct 33.0 L MCV 103 H MCH 34 H MCHC RDW 16.4 H Plt Count Lymph % (Auto) [place] % (Auto) Lymph # [place] # Seg Neutrophils % Seg Neuts % (Manual) Lymphocytes % (Manual) 11.0 L Monocytes % (Manual) Nucleated RBC % Seg Neutrophils # Seg Neutrophils # Man Lymphocytes # (Manual) 1.0 L Monocytes # (Manual) PT INR APTT D-Dimer Heparin Anti-Xa Level 0.21 L POC ABG pH POC ABG pCO2 POC ABG pO2 Sodium Potassium Chloride Carbon Dioxide BUN 48 H Creatinine 1.6 H Glucose 166 H POC Glucose Lactic Acid Calcium Phosphorus Total Bilirubin C-Reactive Protein NT-Pro-B Natriuret Pep Total Protein Albumin Urine WBC (Auto) Urine Creatinine 07/29/18 07/29/18 07/29/18 05:19 08:16 09:24 WBC RBC Hgb Hct MCV MCH MCHC RDW Plt Count Lymph % (Auto) [place] % (Auto) Lymph # [place] # Seg Neutrophils % Seg Neuts % (Manual) Lymphocytes % (Manual) Monocytes % (Manual) Nucleated RBC % Seg Neutrophils # Seg Neutrophils # Man Lymphocytes # (Manual) Monocytes # (Manual) PT INR APTT D-Dimer Heparin Anti-Xa Level 0.25 L POC ABG pH POC ABG pCO2 POC ABG pO2 Sodium Potassium Chloride Carbon Dioxide BUN Creatinine Glucose POC Glucose 181 H Lactic Acid Calcium Phosphorus Total Bilirubin C-Reactive Protein NT-Pro-B Natriuret Pep Total Protein Albumin Urine WBC (Auto) 29.0 H Urine Creatinine 07/29/18 07/29/18 07/29/18 09:24 10:00 15:03 WBC RBC Hgb Hct MCV MCH MCHC RDW Plt Count Lymph % (Auto) [place] % (Auto) Lymph # [place] # Seg Neutrophils % Seg Neuts % (Manual) Lymphocytes % (Manual) Monocytes % (Manual) Nucleated RBC % Seg Neutrophils # Seg Neutrophils # Man Lymphocytes # (Manual) Monocytes # (Manual) PT INR APTT D-Dimer Heparin Anti-Xa Level POC ABG pH POC ABG pCO2 POC ABG pO2 Sodium Potassium Chloride Carbon Dioxide BUN Creatinine Glucose POC Glucose 195 H 167 H Lactic Acid Calcium Phosphorus Total Bilirubin C-Reactive Protein NT-Pro-B Natriuret Pep Total Protein Albumin Urine WBC (Auto) Urine Creatinine 72.3 H 07/29/18 07/29/18 07/30/18 17:51 21:32 01:38 WBC RBC Hgb Hct MCV MCH MCHC RDW Plt Count Lymph % (Auto) [place] % (Auto) Lymph # [place] # Seg Neutrophils % Seg Neuts % (Manual) Lymphocytes % (Manual) Monocytes % (Manual) Nucleated RBC % Seg Neutrophils # Seg Neutrophils # Man Lymphocytes # (Manual) Monocytes # (Manual) PT INR APTT D-Dimer Heparin Anti-Xa Level POC ABG pH POC ABG pCO2 POC ABG pO2 Sodium Potassium Chloride Carbon Dioxide BUN Creatinine Glucose POC Glucose 167 H 217 H 194 H Lactic Acid Calcium Phosphorus Total Bilirubin C-Reactive Protein NT-Pro-B Natriuret Pep Total Protein Albumin Urine WBC (Auto) Urine Creatinine 07/30/18 07/30/18 07/30/18 03:21 05:13 10:18 WBC RBC Hgb Hct MCV MCH MCHC RDW Plt Count Lymph % (Auto) [place] % (Auto) Lymph # [place] # Seg Neutrophils % Seg Neuts % (Manual) Lymphocytes % (Manual) Monocytes % (Manual) Nucleated RBC % Seg Neutrophils # Seg Neutrophils # Man Lymphocytes # (Manual) Monocytes # (Manual) PT INR APTT D-Dimer Heparin Anti-Xa Level POC ABG pH POC ABG pCO2 50.3 H POC ABG pO2 78 L Sodium Potassium Chloride Carbon Dioxide BUN 41 H Creatinine Glucose 202 H POC Glucose 151 H Lactic Acid Calcium Phosphorus Total Bilirubin C-Reactive Protein NT-Pro-B Natriuret Pep Total Protein Albumin Urine WBC (Auto) Urine Creatinine 07/30/18 07/30/18 07/30/18 11:29 16:28 18:12 WBC RBC Hgb Hct MCV MCH MCHC RDW Plt Count Lymph % (Auto) [place] % (Auto) Lymph # [place] # Seg Neutrophils % Seg Neuts % (Manual) Lymphocytes % (Manual) Monocytes % (Manual) Nucleated RBC % Seg Neutrophils # Seg Neutrophils # Man Lymphocytes # (Manual) Monocytes # (Manual) PT INR APTT D-Dimer Heparin Anti-Xa Level POC ABG pH 7.326 L POC ABG pCO2 53.2 H POC ABG pO2 70 L Sodium Potassium Chloride Carbon Dioxide BUN Creatinine Glucose POC Glucose 247 H 212 H Lactic Acid Calcium Phosphorus Total Bilirubin C-Reactive Protein NT-Pro-B Natriuret Pep Total Protein Albumin Urine WBC (Auto) Urine Creatinine 07/30/18 07/30/18 07/31/18 20:08 21:52 01:59 WBC RBC Hgb Hct MCV MCH MCHC RDW Plt Count Lymph % (Auto) [place] % (Auto) Lymph # [place] # Seg Neutrophils % Seg Neuts % (Manual) Lymphocytes % (Manual) Monocytes % (Manual) Nucleated RBC % Seg Neutrophils # Seg Neutrophils # Man Lymphocytes # (Manual) Monocytes # (Manual) PT INR APTT D-Dimer Heparin Anti-Xa Level POC ABG pH POC ABG pCO2 POC ABG pO2 Sodium Potassium Chloride Carbon Dioxide BUN Creatinine Glucose POC Glucose 205 H 215 H 242 H Lactic Acid Calcium Phosphorus Total Bilirubin C-Reactive Protein NT-Pro-B Natriuret Pep Total Protein Albumin Urine WBC (Auto) Urine Creatinine 07/31/18 07/31/18 07/31/18 03:14 03:14 04:55 WBC RBC Hgb 10.6 L Hct 33.2 L MCV MCH MCHC RDW Plt Count Lymph % (Auto) [place] % (Auto) Lymph # [place] # Seg Neutrophils % Seg Neuts % (Manual) Lymphocytes % (Manual) Monocytes % (Manual) Nucleated RBC % Seg Neutrophils # Seg Neutrophils # Man Lymphocytes # (Manual) Monocytes # (Manual) PT INR APTT D-Dimer Heparin Anti-Xa Level POC ABG pH 7.331 L POC ABG pCO2 67.1 H POC ABG pO2 Sodium Potassium Chloride Carbon Dioxide BUN 36 H Creatinine 0.7 L Glucose 242 H POC Glucose Lactic Acid Calcium 10.3 H Phosphorus 2.30 L Total Bilirubin C-Reactive Protein NT-Pro-B Natriuret Pep Total Protein Albumin Urine WBC (Auto) Urine Creatinine 07/31/18 07/31/18 07/31/18 05:37 10:08 14:07 WBC RBC Hgb Hct MCV MCH MCHC RDW Plt Count Lymph % (Auto) [place] % (Auto) Lymph # [place] # Seg Neutrophils % Seg Neuts % (Manual) Lymphocytes % (Manual) Monocytes % (Manual) Nucleated RBC % Seg Neutrophils # Seg Neutrophils # Man Lymphocytes # (Manual) Monocytes # (Manual) PT INR APTT D-Dimer Heparin Anti-Xa Level POC ABG pH POC ABG pCO2 POC ABG pO2 Sodium Potassium Chloride Carbon Dioxide BUN Creatinine Glucose POC Glucose 193 H 247 H 225 H Lactic Acid Calcium Phosphorus Total Bilirubin C-Reactive Protein NT-Pro-B Natriuret Pep Total Protein Albumin Urine WBC (Auto) Urine Creatinine 07/31/18 07/31/18 08/01/18 18:12 21:34 02:00 WBC RBC Hgb Hct MCV MCH MCHC RDW Plt Count Lymph % (Auto) [place] % (Auto) Lymph # [place] # Seg Neutrophils % Seg Neuts % (Manual) Lymphocytes % (Manual) Monocytes % (Manual) Nucleated RBC % Seg Neutrophils # Seg Neutrophils # Man Lymphocytes # (Manual) Monocytes # (Manual) PT INR APTT D-Dimer Heparin Anti-Xa Level POC ABG pH POC ABG pCO2 POC ABG pO2 Sodium Potassium Chloride Carbon Dioxide BUN Creatinine Glucose POC Glucose 197 H 204 H 239 H Lactic Acid Calcium Phosphorus Total Bilirubin C-Reactive Protein NT-Pro-B Natriuret Pep Total Protein Albumin Urine WBC (Auto) Urine Creatinine 08/01/18 08/01/18 08/01/18 04:13 04:37 05:29 WBC RBC Hgb Hct MCV MCH MCHC RDW Plt Count Lymph % (Auto) [place] % (Auto) Lymph # [place] # Seg Neutrophils % Seg Neuts % (Manual) Lymphocytes % (Manual) Monocytes % (Manual) Nucleated RBC % Seg Neutrophils # Seg Neutrophils # Man Lymphocytes # (Manual) Monocytes # (Manual) PT INR APTT D-Dimer Heparin Anti-Xa Level POC ABG pH 7.296 L POC ABG pCO2 81.9 H POC ABG pO2 190 H Sodium 150 H D Potassium Chloride Carbon Dioxide 37 H D BUN 37 H Creatinine 0.6 L Glucose 223 H POC Glucose 219 H Lactic Acid Calcium Phosphorus Total Bilirubin C-Reactive Protein NT-Pro-B Natriuret Pep Total Protein Albumin Urine WBC (Auto) Urine Creatinine 08/01/18 08/01/18 08/01/18 09:28 11:00 17:36 WBC RBC Hgb Hct MCV MCH MCHC RDW Plt Count Lymph % (Auto) [place] % (Auto) Lymph # [place] # Seg Neutrophils % Seg Neuts % (Manual) Lymphocytes % (Manual) Monocytes % (Manual) Nucleated RBC % Seg Neutrophils # Seg Neutrophils # Man Lymphocytes # (Manual) Monocytes # (Manual) PT INR APTT D-Dimer Heparin Anti-Xa Level POC ABG pH POC ABG pCO2 61.2 H POC ABG pO2 69 L Sodium Potassium Chloride Carbon Dioxide BUN Creatinine Glucose POC Glucose 185 H 234 H Lactic Acid Calcium Phosphorus Total Bilirubin C-Reactive Protein NT-Pro-B Natriuret Pep Total Protein Albumin Urine WBC (Auto) Urine Creatinine 08/01/18 08/02/18 08/02/18 21:54 00:08 00:44 WBC RBC Hgb Hct MCV MCH MCHC RDW Plt Count Lymph % (Auto) [place] % (Auto) Lymph # [place] # Seg Neutrophils % Seg Neuts % (Manual) Lymphocytes % (Manual) Monocytes % (Manual) Nucleated RBC % Seg Neutrophils # Seg Neutrophils # Man Lymphocytes # (Manual) Monocytes # (Manual) PT INR APTT D-Dimer Heparin Anti-Xa Level 0.77 H POC ABG pH POC ABG pCO2 66.4 H POC ABG pO2 64 L Sodium Potassium Chloride Carbon Dioxide BUN Creatinine Glucose POC Glucose 242 H Lactic Acid Calcium Phosphorus Total Bilirubin C-Reactive Protein NT-Pro-B Natriuret Pep Total Protein Albumin Urine WBC (Auto) Urine Creatinine 08/02/18 08/02/18 08/02/18 02:46 04:45 04:45 WBC RBC Hgb 10.7 L Hct 33.7 L MCV MCH MCHC RDW Plt Count Lymph % (Auto) [place] % (Auto) Lymph # [place] # Seg Neutrophils % Seg Neuts % (Manual) Lymphocytes % (Manual) Monocytes % (Manual) Nucleated RBC % Seg Neutrophils # Seg Neutrophils # Man Lymphocytes # (Manual) Monocytes # (Manual) PT INR APTT D-Dimer Heparin Anti-Xa Level POC ABG pH POC ABG pCO2 POC ABG pO2 Sodium 152 H Potassium Chloride 108.1 H Carbon Dioxide 39 H BUN 38 H Creatinine 0.6 L Glucose 226 H POC Glucose 206 H Lactic Acid Calcium Phosphorus Total Bilirubin C-Reactive Protein NT-Pro-B Natriuret Pep Total Protein Albumin Urine WBC (Auto) Urine Creatinine 08/02/18 08/02/18 08/02/18 05:31 09:46 14:23 WBC RBC Hgb Hct MCV MCH MCHC RDW Plt Count Lymph % (Auto) [place] % (Auto) Lymph # [place] # Seg Neutrophils % Seg Neuts % (Manual) Lymphocytes % (Manual) Monocytes % (Manual) Nucleated RBC % Seg Neutrophils # Seg Neutrophils # Man Lymphocytes # (Manual) Monocytes # (Manual) PT INR APTT D-Dimer Heparin Anti-Xa Level 0.91 H POC ABG pH POC ABG pCO2 POC ABG pO2 Sodium Potassium Chloride Carbon Dioxide BUN Creatinine Glucose POC Glucose 214 H 210 H Lactic Acid Calcium Phosphorus Total Bilirubin C-Reactive Protein NT-Pro-B Natriuret Pep Total Protein Albumin Urine WBC (Auto) Urine Creatinine 08/02/18 08/02/18 08/02/18 15:46 17:56 21:50 WBC RBC Hgb Hct MCV MCH MCHC RDW Plt Count Lymph % (Auto) [place] % (Auto) Lymph # [place] # Seg Neutrophils % Seg Neuts % (Manual) Lymphocytes % (Manual) Monocytes % (Manual) Nucleated RBC % Seg Neutrophils # Seg Neutrophils # Man Lymphocytes # (Manual) Monocytes # (Manual) PT INR APTT D-Dimer Heparin Anti-Xa Level 0.99 H POC ABG pH POC ABG pCO2 POC ABG pO2 Sodium Potassium Chloride Carbon Dioxide BUN Creatinine Glucose POC Glucose 252 H 222 H Lactic Acid Calcium Phosphorus Total Bilirubin C-Reactive Protein NT-Pro-B Natriuret Pep Total Protein Albumin Urine WBC (Auto) Urine Creatinine 08/03/18 08/03/18 08/03/18 02:18 05:21 05:25 WBC RBC Hgb Hct MCV MCH MCHC RDW Plt Count Lymph % (Auto) [place] % (Auto) Lymph # [place] # Seg Neutrophils % Seg Neuts % (Manual) Lymphocytes % (Manual) Monocytes % (Manual) Nucleated RBC % Seg Neutrophils # Seg Neutrophils # Man Lymphocytes # (Manual) Monocytes # (Manual) PT INR APTT D-Dimer Heparin Anti-Xa Level POC ABG pH POC ABG pCO2 POC ABG pO2 Sodium 151 H Potassium Chloride 107.3 H Carbon Dioxide 37 H BUN 42 H Creatinine 0.6 L Glucose 263 H POC Glucose 241 H 241 H Lactic Acid Calcium Phosphorus Total Bilirubin C-Reactive Protein NT-Pro-B Natriuret Pep Total Protein Albumin Urine WBC (Auto) Urine Creatinine 08/03/18 08/03/18 08/03/18 09:11 12:20 14:33 WBC RBC Hgb Hct MCV MCH MCHC RDW Plt Count Lymph % (Auto) [place] % (Auto) Lymph # [place] # Seg Neutrophils % Seg Neuts % (Manual) Lymphocytes % (Manual) Monocytes % (Manual) Nucleated RBC % Seg Neutrophils # Seg Neutrophils # Man Lymphocytes # (Manual) Monocytes # (Manual) PT INR APTT D-Dimer Heparin Anti-Xa Level POC ABG pH POC ABG pCO2 POC ABG pO2 Sodium Potassium Chloride Carbon Dioxide BUN Creatinine Glucose POC Glucose 272 H 234 H 247 H Lactic Acid Calcium Phosphorus Total Bilirubin C-Reactive Protein NT-Pro-B Natriuret Pep Total Protein Albumin Urine WBC (Auto) Urine Creatinine 08/03/18 08/03/18 08/04/18 16:48 21:21 01:56 WBC RBC Hgb Hct MCV MCH MCHC RDW Plt Count Lymph % (Auto) [place] % (Auto) Lymph # [place] # Seg Neutrophils % Seg Neuts % (Manual) Lymphocytes % (Manual) Monocytes % (Manual) Nucleated RBC % Seg Neutrophils # Seg Neutrophils # Man Lymphocytes # (Manual) Monocytes # (Manual) PT INR APTT D-Dimer Heparin Anti-Xa Level POC ABG pH POC ABG pCO2 POC ABG pO2 Sodium Potassium Chloride Carbon Dioxide BUN Creatinine Glucose POC Glucose 180 H 189 H Lactic Acid Calcium Phosphorus Total Bilirubin C-Reactive Protein 2.30 H NT-Pro-B Natriuret Pep Total Protein Albumin Urine WBC (Auto) Urine Creatinine 08/04/18 08/04/18 08/04/18 01:58 05:05 05:05 WBC 25.5 H RBC 3.31 L Hgb 10.8 L Hct 34.1 L MCV 103 H MCH 33 H MCHC RDW 16.0 H Plt Count Lymph % (Auto) [place] % (Auto) Lymph # [place] # Seg Neutrophils % Seg Neuts % (Manual) Lymphocytes % (Manual) 8.0 L Monocytes % (Manual) Nucleated RBC % 2.0 H Seg Neutrophils # Seg Neutrophils # Man 16.3 H Lymphocytes # (Manual) Monocytes # (Manual) 1.0 H PT INR APTT D-Dimer Heparin Anti-Xa Level 0.79 H POC ABG pH POC ABG pCO2 POC ABG pO2 Sodium 148 H Potassium Chloride Carbon Dioxide 36 H BUN 35 H Creatinine 0.6 L Glucose 160 H POC Glucose Lactic Acid Calcium Phosphorus Total Bilirubin C-Reactive Protein NT-Pro-B Natriuret Pep Total Protein Albumin Urine WBC (Auto) Urine Creatinine 08/04/18 08/04/18 08/04/18 05:24 05:33 08:46 WBC RBC Hgb Hct MCV MCH MCHC RDW Plt Count Lymph % (Auto) [place] % (Auto) Lymph # [place] # Seg Neutrophils % Seg Neuts % (Manual) Lymphocytes % (Manual) Monocytes % (Manual) Nucleated RBC % Seg Neutrophils # Seg Neutrophils # Man Lymphocytes # (Manual) Monocytes # (Manual) PT INR APTT D-Dimer Heparin Anti-Xa Level 0.76 H POC ABG pH POC ABG pCO2 65.7 H POC ABG pO2 63 L Sodium Potassium Chloride Carbon Dioxide BUN Creatinine Glucose POC Glucose 159 H Lactic Acid Calcium Phosphorus Total Bilirubin C-Reactive Protein NT-Pro-B Natriuret Pep Total Protein Albumin Urine WBC (Auto) Urine Creatinine 08/04/18 08/04/18 08/04/18 09:12 15:38 18:20 WBC RBC Hgb Hct MCV MCH MCHC RDW Plt Count Lymph % (Auto) [place] % (Auto) Lymph # [place] # Seg Neutrophils % Seg Neuts % (Manual) Lymphocytes % (Manual) Monocytes % (Manual) Nucleated RBC % Seg Neutrophils # Seg Neutrophils # Man Lymphocytes # (Manual) Monocytes # (Manual) PT INR APTT D-Dimer Heparin Anti-Xa Level POC ABG pH POC ABG pCO2 POC ABG pO2 Sodium Potassium Chloride Carbon Dioxide BUN Creatinine Glucose POC Glucose 140 H 267 H 252 H Lactic Acid Calcium Phosphorus Total Bilirubin C-Reactive Protein NT-Pro-B Natriuret Pep Total Protein Albumin Urine WBC (Auto) Urine Creatinine 08/04/18 08/05/18 08/05/18 21:17 02:51 04:36 WBC RBC Hgb Hct MCV MCH MCHC RDW Plt Count Lymph % (Auto) [place] % (Auto) Lymph # [place] # Seg Neutrophils % Seg Neuts % (Manual) Lymphocytes % (Manual) Monocytes % (Manual) Nucleated RBC % Seg Neutrophils # Seg Neutrophils # Man Lymphocytes # (Manual) Monocytes # (Manual) PT INR APTT D-Dimer Heparin Anti-Xa Level POC ABG pH POC ABG pCO2 POC ABG pO2 Sodium Potassium Chloride Carbon Dioxide BUN Creatinine Glucose POC Glucose 181 H 240 H 255 H Lactic Acid Calcium Phosphorus Total Bilirubin C-Reactive Protein NT-Pro-B Natriuret Pep Total Protein Albumin Urine WBC (Auto) Urine Creatinine 08/05/18 08/05/18 08/05/18 04:55 10:21 12:39 WBC 21.8 H RBC 3.18 L Hgb 10.3 L Hct 32.6 L MCV 103 H MCH 33 H MCHC RDW 16.3 H Plt Count Lymph % (Auto) [place] % (Auto) Lymph # [place] # Seg Neutrophils % Seg Neuts % (Manual) 88.0 H Lymphocytes % (Manual) 4.0 L Monocytes % (Manual) Nucleated RBC % Seg Neutrophils # Seg Neutrophils # Man 19.2 H Lymphocytes # (Manual) 0.9 L Monocytes # (Manual) PT INR APTT D-Dimer Heparin Anti-Xa Level POC ABG pH 7.506 H POC ABG pCO2 56.0 H POC ABG pO2 63 L Sodium Potassium Chloride Carbon Dioxide BUN Creatinine Glucose POC Glucose 227 H Lactic Acid Calcium Phosphorus Total Bilirubin C-Reactive Protein NT-Pro-B Natriuret Pep Total Protein Albumin Urine WBC (Auto) Urine Creatinine 08/05/18 08/05/18 08/05/18 12:39 14:10 17:30 WBC RBC Hgb Hct MCV MCH MCHC RDW Plt Count Lymph % (Auto) [place] % (Auto) Lymph # [place] # Seg Neutrophils % Seg Neuts % (Manual) Lymphocytes % (Manual) Monocytes % (Manual) Nucleated RBC % Seg Neutrophils # Seg Neutrophils # Man Lymphocytes # (Manual) Monocytes # (Manual) PT INR APTT D-Dimer Heparin Anti-Xa Level < 0.10 L POC ABG pH POC ABG pCO2 POC ABG pO2 Sodium Potassium Chloride 96.8 L Carbon Dioxide 38 H BUN 36 H Creatinine 0.6 L Glucose 218 H POC Glucose 221 H Lactic Acid Calcium Phosphorus Total Bilirubin C-Reactive Protein NT-Pro-B Natriuret Pep Total Protein Albumin Urine WBC (Auto) Urine Creatinine 08/05/18 08/05/18 08/06/18 18:32 23:32 02:26 WBC RBC Hgb Hct MCV MCH MCHC RDW Plt Count Lymph % (Auto) [place] % (Auto) Lymph # [place] # Seg Neutrophils % Seg Neuts % (Manual) Lymphocytes % (Manual) Monocytes % (Manual) Nucleated RBC % Seg Neutrophils # Seg Neutrophils # Man Lymphocytes # (Manual) Monocytes # (Manual) PT INR APTT D-Dimer Heparin Anti-Xa Level POC ABG pH POC ABG pCO2 POC ABG pO2 Sodium Potassium Chloride Carbon Dioxide BUN Creatinine Glucose POC Glucose 253 H 215 H 227 H Lactic Acid Calcium Phosphorus Total Bilirubin C-Reactive Protein NT-Pro-B Natriuret Pep Total Protein Albumin Urine WBC (Auto) Urine Creatinine 08/06/18 08/06/18 08/06/18 05:17 05:17 05:32 WBC 18.9 H RBC 3.06 L Hgb 10.2 L Hct 31.3 L MCV 102 H MCH 33 H MCHC RDW 16.1 H Plt Count Lymph % (Auto) [place] % (Auto) Lymph # [place] # Seg Neutrophils % Seg Neuts % (Manual) Lymphocytes % (Manual) Monocytes % (Manual) Nucleated RBC % Seg Neutrophils # Seg Neutrophils # Man Lymphocytes # (Manual) Monocytes # (Manual) PT INR APTT D-Dimer Heparin Anti-Xa Level POC ABG pH 7.468 H POC ABG pCO2 59.5 H POC ABG pO2 64 L Sodium Potassium Chloride Carbon Dioxide 37 H BUN 37 H Creatinine 0.5 L Glucose 226 H POC Glucose Lactic Acid Calcium Phosphorus Total Bilirubin C-Reactive Protein NT-Pro-B Natriuret Pep Total Protein Albumin Urine WBC (Auto) Urine Creatinine 08/06/18 08/06/18 08/06/18 10:11 15:03 17:48 WBC RBC Hgb Hct MCV MCH MCHC RDW Plt Count Lymph % (Auto) [place] % (Auto) Lymph # [place] # Seg Neutrophils % Seg Neuts % (Manual) Lymphocytes % (Manual) Monocytes % (Manual) Nucleated RBC % Seg Neutrophils # Seg Neutrophils # Man Lymphocytes # (Manual) Monocytes # (Manual) PT INR APTT D-Dimer Heparin Anti-Xa Level POC ABG pH POC ABG pCO2 POC ABG pO2 Sodium Potassium Chloride Carbon Dioxide BUN Creatinine Glucose POC Glucose 207 H 229 H 188 H Lactic Acid Calcium Phosphorus Total Bilirubin C-Reactive Protein NT-Pro-B Natriuret Pep Total Protein Albumin Urine WBC (Auto) Urine Creatinine 08/06/18 08/07/18 08/07/18 22:53 01:55 05:30 WBC RBC Hgb Hct MCV MCH MCHC RDW Plt Count Lymph % (Auto) [place] % (Auto) Lymph # [place] # Seg Neutrophils % Seg Neuts % (Manual) Lymphocytes % (Manual) Monocytes % (Manual) Nucleated RBC % Seg Neutrophils # Seg Neutrophils # Man Lymphocytes # (Manual) Monocytes # (Manual) PT INR APTT D-Dimer Heparin Anti-Xa Level POC ABG pH POC ABG pCO2 69.6 H POC ABG pO2 64 L Sodium Potassium Chloride Carbon Dioxide BUN Creatinine Glucose POC Glucose 146 H 143 H Lactic Acid Calcium Phosphorus Total Bilirubin C-Reactive Protein NT-Pro-B Natriuret Pep Total Protein Albumin Urine WBC (Auto) Urine Creatinine 08/07/18 08/07/18 08/07/18 09:59 14:16 15:08 WBC RBC Hgb 10.3 L Hct 32.2 L MCV MCH MCHC RDW Plt Count Lymph % (Auto) [place] % (Auto) Lymph # [place] # Seg Neutrophils % Seg Neuts % (Manual) Lymphocytes % (Manual) Monocytes % (Manual) Nucleated RBC % Seg Neutrophils # Seg Neutrophils # Man Lymphocytes # (Manual) Monocytes # (Manual) PT INR APTT D-Dimer Heparin Anti-Xa Level POC ABG pH POC ABG pCO2 POC ABG pO2 Sodium Potassium Chloride Carbon Dioxide BUN Creatinine Glucose POC Glucose 188 H 223 H Lactic Acid Calcium Phosphorus Total Bilirubin C-Reactive Protein NT-Pro-B Natriuret Pep Total Protein Albumin Urine WBC (Auto) Urine Creatinine 08/07/18 08/07/18 08/07/18 15:08 17:39 22:04 WBC RBC Hgb Hct MCV MCH MCHC RDW Plt Count Lymph % (Auto) [place] % (Auto) Lymph # [place] # Seg Neutrophils % Seg Neuts % (Manual) Lymphocytes % (Manual) Monocytes % (Manual) Nucleated RBC % Seg Neutrophils # Seg Neutrophils # Man Lymphocytes # (Manual) Monocytes # (Manual) PT INR APTT 23.2 L D-Dimer Heparin Anti-Xa Level POC ABG pH POC ABG pCO2 POC ABG pO2 Sodium Potassium Chloride Carbon Dioxide BUN Creatinine Glucose POC Glucose 208 H 163 H Lactic Acid Calcium Phosphorus Total Bilirubin C-Reactive Protein NT-Pro-B Natriuret Pep Total Protein Albumin Urine WBC (Auto) Urine Creatinine 08/07/18 08/08/18 08/08/18 22:30 01:57 02:09 WBC 14.6 H RBC 2.88 L Hgb 9.5 L Hct 29.9 L MCV 104 H MCH 33 H MCHC RDW 16.8 H Plt Count Lymph % (Auto) [place] % (Auto) Lymph # [place] # Seg Neutrophils % Seg Neuts % (Manual) 73.0 H Lymphocytes % (Manual) 9.0 L Monocytes % (Manual) 10.0 H Nucleated RBC % Seg Neutrophils # Seg Neutrophils # Man 10.7 H Lymphocytes # (Manual) Monocytes # (Manual) 1.5 H PT INR APTT D-Dimer Heparin Anti-Xa Level 0.25 L POC ABG pH POC ABG pCO2 POC ABG pO2 Sodium Potassium Chloride Carbon Dioxide BUN Creatinine Glucose POC Glucose 120 H Lactic Acid Calcium Phosphorus Total Bilirubin C-Reactive Protein NT-Pro-B Natriuret Pep Total Protein Albumin Urine WBC (Auto) Urine Creatinine 08/08/18 08/08/18 08/08/18 02:09 04:58 05:19 WBC RBC Hgb Hct MCV MCH MCHC RDW Plt Count Lymph % (Auto) [place] % (Auto) Lymph # [place] # Seg Neutrophils % Seg Neuts % (Manual) Lymphocytes % (Manual) Monocytes % (Manual) Nucleated RBC % Seg Neutrophils # Seg Neutrophils # Man Lymphocytes # (Manual) Monocytes # (Manual) PT INR APTT D-Dimer Heparin Anti-Xa Level POC ABG pH 7.461 H POC ABG pCO2 57.3 H POC ABG pO2 62 L Sodium Potassium Chloride Carbon Dioxide 39 H BUN 29 H Creatinine 0.5 L Glucose 124 H POC Glucose 139 H Lactic Acid Calcium Phosphorus Total Bilirubin C-Reactive Protein NT-Pro-B Natriuret Pep Total Protein Albumin Urine WBC (Auto) Urine Creatinine 08/08/18 08/08/18 08/08/18 10:22 14:52 16:12 WBC RBC Hgb Hct MCV MCH MCHC RDW Plt Count Lymph % (Auto) [place] % (Auto) Lymph # [place] # Seg Neutrophils % Seg Neuts % (Manual) Lymphocytes % (Manual) Monocytes % (Manual) Nucleated RBC % Seg Neutrophils # Seg Neutrophils # Man Lymphocytes # (Manual) Monocytes # (Manual) PT INR APTT D-Dimer Heparin Anti-Xa Level POC ABG pH POC ABG pCO2 POC ABG pO2 Sodium Potassium Chloride Carbon Dioxide BUN Creatinine Glucose POC Glucose 169 H 149 H 136 H Lactic Acid Calcium Phosphorus Total Bilirubin C-Reactive Protein NT-Pro-B Natriuret Pep Total Protein Albumin Urine WBC (Auto) Urine Creatinine 08/09/18 08/09/18 08/09/18 02:26 03:52 03:52 WBC 15.9 H RBC 2.87 L Hgb 9.6 L Hct 30.7 L MCV 107 H MCH 34 H MCHC 31 L RDW 17.8 H Plt Count Lymph % (Auto) 3.9 L [place] % (Auto) 8.1 H Lymph # 0.6 L [place] # 1.3 H Seg Neutrophils % 87.1 H Seg Neuts % (Manual) Lymphocytes % (Manual) Monocytes % (Manual) Nucleated RBC % Seg Neutrophils # 13.9 H Seg Neutrophils # Man Lymphocytes # (Manual) Monocytes # (Manual) PT INR APTT D-Dimer Heparin Anti-Xa Level 0.25 L POC ABG pH POC ABG pCO2 POC ABG pO2 Sodium Potassium Chloride Carbon Dioxide BUN Creatinine Glucose POC Glucose 126 H Lactic Acid Calcium Phosphorus Total Bilirubin C-Reactive Protein NT-Pro-B Natriuret Pep Total Protein Albumin Urine WBC (Auto) Urine Creatinine 08/09/18 08/09/18 08/09/18 03:52 05:34 06:48 WBC RBC Hgb Hct MCV MCH MCHC RDW Plt Count Lymph % (Auto) [place] % (Auto) Lymph # [place] # Seg Neutrophils % Seg Neuts % (Manual) Lymphocytes % (Manual) Monocytes % (Manual) Nucleated RBC % Seg Neutrophils # Seg Neutrophils # Man Lymphocytes # (Manual) Monocytes # (Manual) PT INR APTT D-Dimer Heparin Anti-Xa Level POC ABG pH POC ABG pCO2 57.5 H POC ABG pO2 58 L Sodium Potassium Chloride Carbon Dioxide 39 H BUN 26 H Creatinine 0.5 L Glucose 128 H POC Glucose 171 H Lactic Acid Calcium Phosphorus Total Bilirubin C-Reactive Protein NT-Pro-B Natriuret Pep Total Protein Albumin Urine WBC (Auto) Urine Creatinine 08/09/18 08/09/18 08/09/18 09:28 09:36 13:44 WBC RBC Hgb Hct MCV MCH MCHC RDW Plt Count Lymph % (Auto) [place] % (Auto) Lymph # [place] # Seg Neutrophils % Seg Neuts % (Manual) Lymphocytes % (Manual) Monocytes % (Manual) Nucleated RBC % Seg Neutrophils # Seg Neutrophils # Man Lymphocytes # (Manual) Monocytes # (Manual) PT INR APTT D-Dimer Heparin Anti-Xa Level 0.26 L POC ABG pH POC ABG pCO2 POC ABG pO2 Sodium Potassium Chloride Carbon Dioxide BUN Creatinine Glucose POC Glucose 183 H 184 H Lactic Acid Calcium Phosphorus Total Bilirubin C-Reactive Protein NT-Pro-B Natriuret Pep Total Protein Albumin Urine WBC (Auto) Urine Creatinine 08/09/18 08/10/18 08/10/18 17:55 04:49 05:20 WBC RBC Hgb Hct MCV MCH MCHC RDW Plt Count Lymph % (Auto) [place] % (Auto) Lymph # [place] # Seg Neutrophils % Seg Neuts % (Manual) Lymphocytes % (Manual) Monocytes % (Manual) Nucleated RBC % Seg Neutrophils # Seg Neutrophils # Man Lymphocytes # (Manual) Monocytes # (Manual) PT INR APTT D-Dimer Heparin Anti-Xa Level POC ABG pH POC ABG pCO2 59.9 H POC ABG pO2 59 L Sodium Potassium Chloride Carbon Dioxide BUN Creatinine Glucose POC Glucose 148 H 59 L Lactic Acid Calcium Phosphorus Total Bilirubin C-Reactive Protein NT-Pro-B Natriuret Pep Total Protein Albumin Urine WBC (Auto) Urine Creatinine 08/10/18 08/10/18 08/10/18 05:53 17:12 21:17 WBC RBC Hgb Hct MCV MCH MCHC RDW Plt Count Lymph % (Auto) [place] % (Auto) Lymph # [place] # Seg Neutrophils % Seg Neuts % (Manual) Lymphocytes % (Manual) Monocytes % (Manual) Nucleated RBC % Seg Neutrophils # Seg Neutrophils # Man Lymphocytes # (Manual) Monocytes # (Manual) PT INR APTT D-Dimer Heparin Anti-Xa Level POC ABG pH POC ABG pCO2 POC ABG pO2 Sodium Potassium Chloride Carbon Dioxide BUN Creatinine Glucose POC Glucose 128 H 110 H 109 H Lactic Acid Calcium Phosphorus Total Bilirubin C-Reactive Protein NT-Pro-B Natriuret Pep Total Protein Albumin Urine WBC (Auto) Urine Creatinine 08/11/18 08/11/18 08/11/18 00:54 02:28 04:17 WBC RBC Hgb 7.8 L Hct 24.1 L D MCV MCH MCHC RDW Plt Count Lymph % (Auto) [place] % (Auto) Lymph # [place] # Seg Neutrophils % Seg Neuts % (Manual) Lymphocytes % (Manual) Monocytes % (Manual) Nucleated RBC % Seg Neutrophils # Seg Neutrophils # Man Lymphocytes # (Manual) Monocytes # (Manual) PT INR APTT D-Dimer Heparin Anti-Xa Level 0.19 L POC ABG pH POC ABG pCO2 POC ABG pO2 Sodium Potassium Chloride Carbon Dioxide BUN Creatinine Glucose POC Glucose 124 H Lactic Acid Calcium Phosphorus Total Bilirubin C-Reactive Protein NT-Pro-B Natriuret Pep Total Protein Albumin Urine WBC (Auto) Urine Creatinine 08/11/18 08/11/18 08/11/18 05:10 07:42 10:27 WBC RBC Hgb Hct MCV MCH MCHC RDW Plt Count Lymph % (Auto) [place] % (Auto) Lymph # [place] # Seg Neutrophils % Seg Neuts % (Manual) Lymphocytes % (Manual) Monocytes % (Manual) Nucleated RBC % Seg Neutrophils # Seg Neutrophils # Man Lymphocytes # (Manual) Monocytes # (Manual) PT INR APTT D-Dimer Heparin Anti-Xa Level 0.20 L POC ABG pH POC ABG pCO2 POC ABG pO2 Sodium Potassium Chloride Carbon Dioxide BUN Creatinine Glucose POC Glucose 150 H 156 H Lactic Acid Calcium Phosphorus Total Bilirubin C-Reactive Protein NT-Pro-B Natriuret Pep Total Protein Albumin Urine WBC (Auto) Urine Creatinine 08/11/18 08/11/18 08/11/18 13:54 15:06 18:13 WBC RBC Hgb Hct MCV MCH MCHC RDW Plt Count Lymph % (Auto) [place] % (Auto) Lymph # [place] # Seg Neutrophils % Seg Neuts % (Manual) Lymphocytes % (Manual) Monocytes % (Manual) Nucleated RBC % Seg Neutrophils # Seg Neutrophils # Man Lymphocytes # (Manual) Monocytes # (Manual) PT INR APTT D-Dimer Heparin Anti-Xa Level POC ABG pH 7.471 H POC ABG pCO2 45.5 H POC ABG pO2 79 L Sodium Potassium Chloride Carbon Dioxide BUN Creatinine Glucose POC Glucose 177 H 143 H Lactic Acid Calcium Phosphorus Total Bilirubin C-Reactive Protein NT-Pro-B Natriuret Pep Total Protein Albumin Urine WBC (Auto) Urine Creatinine 08/11/18 08/11/18 08/11/18 18:33 21:22 Unknown WBC RBC Hgb Hct MCV MCH MCHC RDW Plt Count Lymph % (Auto) [place] % (Auto) Lymph # [place] # Seg Neutrophils % Seg Neuts % (Manual) Lymphocytes % (Manual) Monocytes % (Manual) Nucleated RBC % Seg Neutrophils # Seg Neutrophils # Man Lymphocytes # (Manual) Monocytes # (Manual) PT INR APTT D-Dimer Heparin Anti-Xa Level 0.29 L POC ABG pH POC ABG pCO2 POC ABG pO2 Sodium 136 L Potassium Chloride 96.5 L Carbon Dioxide 32 H D BUN Creatinine 0.5 L Glucose 186 H POC Glucose 151 H Lactic Acid Calcium Phosphorus Total Bilirubin C-Reactive Protein NT-Pro-B Natriuret Pep Total Protein Albumin Urine WBC (Auto) Urine Creatinine 08/11/18 08/12/18 08/12/18 Unknown 02:09 05:29 WBC 12.1 H RBC 2.50 L Hgb 8.2 L Hct 25.7 L MCV 103 H MCH 33 H MCHC RDW 17.0 H Plt Count Lymph % (Auto) 5.1 L [place] % (Auto) 9.5 H Lymph # 0.6 L [place] # 1.2 H Seg Neutrophils % 84.8 H Seg Neuts % (Manual) Lymphocytes % (Manual) Monocytes % (Manual) Nucleated RBC % Seg Neutrophils # 10.3 H Seg Neutrophils # Man Lymphocytes # (Manual) Monocytes # (Manual) PT INR APTT D-Dimer Heparin Anti-Xa Level POC ABG pH POC ABG pCO2 POC ABG pO2 Sodium Potassium Chloride Carbon Dioxide BUN Creatinine Glucose POC Glucose 159 H 136 H Lactic Acid Calcium Phosphorus Total Bilirubin C-Reactive Protein NT-Pro-B Natriuret Pep Total Protein Albumin Urine WBC (Auto) Urine Creatinine 08/12/18 08/12/18 08/12/18 07:33 09:59 13:59 WBC RBC Hgb Hct MCV MCH MCHC RDW Plt Count Lymph % (Auto) [place] % (Auto) Lymph # [place] # Seg Neutrophils % Seg Neuts % (Manual) Lymphocytes % (Manual) Monocytes % (Manual) Nucleated RBC % Seg Neutrophils # Seg Neutrophils # Man Lymphocytes # (Manual) Monocytes # (Manual) PT INR APTT D-Dimer Heparin Anti-Xa Level POC ABG pH POC ABG pCO2 POC ABG pO2 Sodium Potassium Chloride Carbon Dioxide BUN Creatinine Glucose POC Glucose 138 H 157 H 167 H Lactic Acid Calcium Phosphorus Total Bilirubin C-Reactive Protein NT-Pro-B Natriuret Pep Total Protein Albumin Urine WBC (Auto) Urine Creatinine 08/12/18 08/12/18 08/12/18 14:31 14:56 17:39 WBC RBC Hgb Hct MCV MCH MCHC RDW Plt Count Lymph % (Auto) [place] % (Auto) Lymph # [place] # Seg Neutrophils % Seg Neuts % (Manual) Lymphocytes % (Manual) Monocytes % (Manual) Nucleated RBC % Seg Neutrophils # Seg Neutrophils # Man Lymphocytes # (Manual) Monocytes # (Manual) PT INR APTT D-Dimer Heparin Anti-Xa Level 1.18 H POC ABG pH 7.466 H POC ABG pCO2 POC ABG pO2 58 L Sodium Potassium Chloride Carbon Dioxide BUN Creatinine Glucose POC Glucose 168 H Lactic Acid Calcium Phosphorus Total Bilirubin C-Reactive Protein NT-Pro-B Natriuret Pep Total Protein Albumin Urine WBC (Auto) Urine Creatinine 08/12/18 08/13/18 08/13/18 21:38 02:17 05:20 WBC RBC Hgb 8.0 L Hct 24.5 L MCV MCH MCHC RDW Plt Count Lymph % (Auto) [place] % (Auto) Lymph # [place] # Seg Neutrophils % Seg Neuts % (Manual) Lymphocytes % (Manual) Monocytes % (Manual) Nucleated RBC % Seg Neutrophils # Seg Neutrophils # Man Lymphocytes # (Manual) Monocytes # (Manual) PT INR APTT D-Dimer Heparin Anti-Xa Level POC ABG pH POC ABG pCO2 POC ABG pO2 Sodium Potassium Chloride Carbon Dioxide BUN Creatinine Glucose POC Glucose 168 H 157 H Lactic Acid Calcium Phosphorus Total Bilirubin C-Reactive Protein NT-Pro-B Natriuret Pep Total Protein Albumin Urine WBC (Auto) Urine Creatinine 08/13/18 08/13/18 08/13/18 09:28 10:07 14:09 WBC RBC Hgb Hct MCV MCH MCHC RDW Plt Count Lymph % (Auto) [place] % (Auto) Lymph # [place] # Seg Neutrophils % Seg Neuts % (Manual) Lymphocytes % (Manual) Monocytes % (Manual) Nucleated RBC % Seg Neutrophils # Seg Neutrophils # Man Lymphocytes # (Manual) Monocytes # (Manual) PT INR APTT D-Dimer Heparin Anti-Xa Level POC ABG pH 7.453 H POC ABG pCO2 47.5 H POC ABG pO2 Sodium Potassium Chloride Carbon Dioxide BUN Creatinine Glucose POC Glucose 177 H 178 H Lactic Acid Calcium Phosphorus Total Bilirubin C-Reactive Protein NT-Pro-B Natriuret Pep Total Protein Albumin Urine WBC (Auto) Urine Creatinine 08/13/18 08/13/18 08/14/18 17:33 21:28 01:58 WBC RBC Hgb Hct MCV MCH MCHC RDW Plt Count Lymph % (Auto) [place] % (Auto) Lymph # [place] # Seg Neutrophils % Seg Neuts % (Manual) Lymphocytes % (Manual) Monocytes % (Manual) Nucleated RBC % Seg Neutrophils # Seg Neutrophils # Man Lymphocytes # (Manual) Monocytes # (Manual) PT INR APTT D-Dimer Heparin Anti-Xa Level POC ABG pH POC ABG pCO2 POC ABG pO2 Sodium Potassium Chloride Carbon Dioxide BUN Creatinine Glucose POC Glucose 130 H 145 H 161 H Lactic Acid Calcium Phosphorus Total Bilirubin C-Reactive Protein NT-Pro-B Natriuret Pep Total Protein Albumin Urine WBC (Auto) Urine Creatinine 08/14/18 08/14/18 08/14/18 05:22 06:10 09:59 WBC RBC Hgb Hct MCV MCH MCHC RDW Plt Count Lymph % (Auto) [place] % (Auto) Lymph # [place] # Seg Neutrophils % Seg Neuts % (Manual) Lymphocytes % (Manual) Monocytes % (Manual) Nucleated RBC % Seg Neutrophils # Seg Neutrophils # Man Lymphocytes # (Manual) Monocytes # (Manual) PT INR APTT D-Dimer Heparin Anti-Xa Level POC ABG pH POC ABG pCO2 POC ABG pO2 Sodium Potassium Chloride Carbon Dioxide BUN Creatinine 0.5 L Glucose 125 H POC Glucose 117 H 107 H Lactic Acid Calcium Phosphorus Total Bilirubin C-Reactive Protein NT-Pro-B Natriuret Pep Total Protein Albumin Urine WBC (Auto) Urine Creatinine 08/14/18 08/14/18 08/14/18 14:04 17:49 21:27 WBC RBC Hgb Hct MCV MCH MCHC RDW Plt Count Lymph % (Auto) [place] % (Auto) Lymph # [place] # Seg Neutrophils % Seg Neuts % (Manual) Lymphocytes % (Manual) Monocytes % (Manual) Nucleated RBC % Seg Neutrophils # Seg Neutrophils # Man Lymphocytes # (Manual) Monocytes # (Manual) PT INR APTT D-Dimer Heparin Anti-Xa Level POC ABG pH POC ABG pCO2 POC ABG pO2 Sodium Potassium Chloride Carbon Dioxide BUN Creatinine Glucose POC Glucose 137 H 150 H 149 H Lactic Acid Calcium Phosphorus Total Bilirubin C-Reactive Protein NT-Pro-B Natriuret Pep Total Protein Albumin Urine WBC (Auto) Urine Creatinine 08/14/18 08/15/18 08/15/18 21:55 01:50 03:12 WBC 13.3 H RBC 2.79 L Hgb 9.3 L 8.4 L Hct 28.6 L 25.7 L MCV 102 H MCH 33 H MCHC RDW 16.6 H Plt Count Lymph % (Auto) [place] % (Auto) Lymph # [place] # Seg Neutrophils % Seg Neuts % (Manual) Lymphocytes % (Manual) Monocytes % (Manual) Nucleated RBC % Seg Neutrophils # Seg Neutrophils # Man Lymphocytes # (Manual) Monocytes # (Manual) PT INR APTT D-Dimer Heparin Anti-Xa Level POC ABG pH POC ABG pCO2 POC ABG pO2 Sodium Potassium Chloride Carbon Dioxide BUN Creatinine Glucose POC Glucose 186 H Lactic Acid Calcium Phosphorus Total Bilirubin C-Reactive Protein NT-Pro-B Natriuret Pep Total Protein Albumin Urine WBC (Auto) Urine Creatinine 08/15/18 08/15/18 08/15/18 09:55 11:45 13:47 WBC RBC 2.38 L Hgb 8.0 L Hct 24.5 L MCV 103 H MCH 34 H MCHC RDW 16.8 H Plt Count Lymph % (Auto) 4.9 L [place] % (Auto) Lymph # 0.5 L [place] # Seg Neutrophils % 88.1 H Seg Neuts % (Manual) Lymphocytes % (Manual) Monocytes % (Manual) Nucleated RBC % Seg Neutrophils # 9.6 H Seg Neutrophils # Man Lymphocytes # (Manual) Monocytes # (Manual) PT INR APTT D-Dimer Heparin Anti-Xa Level POC ABG pH POC ABG pCO2 POC ABG pO2 Sodium Potassium Chloride Carbon Dioxide BUN Creatinine Glucose POC Glucose 133 H 142 H Lactic Acid Calcium Phosphorus Total Bilirubin C-Reactive Protein NT-Pro-B Natriuret Pep Total Protein Albumin Urine WBC (Auto) Urine Creatinine 08/15/18 08/15/18 08/16/18 17:54 21:58 02:20 WBC RBC Hgb Hct MCV MCH MCHC RDW Plt Count Lymph % (Auto) [place] % (Auto) Lymph # [place] # Seg Neutrophils % Seg Neuts % (Manual) Lymphocytes % (Manual) Monocytes % (Manual) Nucleated RBC % Seg Neutrophils # Seg Neutrophils # Man Lymphocytes # (Manual) Monocytes # (Manual) PT INR APTT D-Dimer Heparin Anti-Xa Level POC ABG pH POC ABG pCO2 POC ABG pO2 Sodium Potassium Chloride Carbon Dioxide BUN Creatinine Glucose POC Glucose 131 H 157 H 108 H Lactic Acid Calcium Phosphorus Total Bilirubin C-Reactive Protein NT-Pro-B Natriuret Pep Total Protein Albumin Urine WBC (Auto) Urine Creatinine 08/16/18 08/16/18 08/16/18 05:16 10:20 10:23 WBC RBC Hgb Hct MCV MCH MCHC RDW Plt Count Lymph % (Auto) [place] % (Auto) Lymph # [place] # Seg Neutrophils % Seg Neuts % (Manual) Lymphocytes % (Manual) Monocytes % (Manual) Nucleated RBC % Seg Neutrophils # Seg Neutrophils # Man Lymphocytes # (Manual) Monocytes # (Manual) PT INR APTT D-Dimer Heparin Anti-Xa Level POC ABG pH POC ABG pCO2 POC ABG pO2 63 L Sodium Potassium Chloride Carbon Dioxide BUN Creatinine Glucose POC Glucose 115 H 146 H Lactic Acid Calcium Phosphorus Total Bilirubin C-Reactive Protein NT-Pro-B Natriuret Pep Total Protein Albumin Urine WBC (Auto) Urine Creatinine 08/16/18 08/16/18 08/16/18 11:06 14:05 18:04 WBC RBC 2.82 L Hgb 9.2 L Hct 28.8 L MCV 102 H MCH 33 H MCHC RDW 16.4 H Plt Count Lymph % (Auto) 3.8 L [place] % (Auto) Lymph # 0.4 L [place] # Seg Neutrophils % 89.5 H Seg Neuts % (Manual) Lymphocytes % (Manual) Monocytes % (Manual) Nucleated RBC % Seg Neutrophils # 9.1 H Seg Neutrophils # Man Lymphocytes # (Manual) Monocytes # (Manual) PT INR APTT D-Dimer Heparin Anti-Xa Level POC ABG pH POC ABG pCO2 POC ABG pO2 Sodium Potassium Chloride Carbon Dioxide BUN Creatinine Glucose POC Glucose 139 H 144 H Lactic Acid Calcium Phosphorus Total Bilirubin C-Reactive Protein NT-Pro-B Natriuret Pep Total Protein Albumin Urine WBC (Auto) Urine Creatinine 08/16/18 08/17/18 08/17/18 21:50 03:51 04:59 WBC RBC Hgb Hct MCV MCH MCHC RDW Plt Count Lymph % (Auto) [place] % (Auto) Lymph # [place] # Seg Neutrophils % Seg Neuts % (Manual) Lymphocytes % (Manual) Monocytes % (Manual) Nucleated RBC % Seg Neutrophils # Seg Neutrophils # Man Lymphocytes # (Manual) Monocytes # (Manual) PT INR APTT D-Dimer Heparin Anti-Xa Level POC ABG pH POC ABG pCO2 POC ABG pO2 Sodium Potassium Chloride Carbon Dioxide BUN Creatinine 0.5 L Glucose 134 H POC Glucose 147 H 135 H Lactic Acid Calcium Phosphorus Total Bilirubin C-Reactive Protein NT-Pro-B Natriuret Pep Total Protein Albumin Urine WBC (Auto) Urine Creatinine 08/17/18 08/17/18 08/17/18 12:07 18:04 21:38 WBC RBC Hgb Hct MCV MCH MCHC RDW Plt Count Lymph % (Auto) [place] % (Auto) Lymph # [place] # Seg Neutrophils % Seg Neuts % (Manual) Lymphocytes % (Manual) Monocytes % (Manual) Nucleated RBC % Seg Neutrophils # Seg Neutrophils # Man Lymphocytes # (Manual) Monocytes # (Manual) PT INR APTT D-Dimer Heparin Anti-Xa Level POC ABG pH POC ABG pCO2 55.6 H POC ABG pO2 65 L Sodium Potassium Chloride Carbon Dioxide BUN Creatinine Glucose POC Glucose 160 H 115 H Lactic Acid Calcium Phosphorus Total Bilirubin C-Reactive Protein NT-Pro-B Natriuret Pep Total Protein Albumin Urine WBC (Auto) Urine Creatinine 08/17/18 08/18/18 08/18/18 21:47 01:42 05:42 WBC RBC Hgb Hct MCV MCH MCHC RDW Plt Count Lymph % (Auto) [place] % (Auto) Lymph # [place] # Seg Neutrophils % Seg Neuts % (Manual) Lymphocytes % (Manual) Monocytes % (Manual) Nucleated RBC % Seg Neutrophils # Seg Neutrophils # Man Lymphocytes # (Manual) Monocytes # (Manual) PT INR APTT D-Dimer Heparin Anti-Xa Level POC ABG pH POC ABG pCO2 POC ABG pO2 Sodium Potassium Chloride Carbon Dioxide BUN Creatinine Glucose POC Glucose 110 H 124 H 127 H Lactic Acid Calcium Phosphorus Total Bilirubin C-Reactive Protein NT-Pro-B Natriuret Pep Total Protein Albumin Urine WBC (Auto) Urine Creatinine 08/18/18 08/18/18 08/18/18 09:51 14:37 21:37 WBC RBC Hgb Hct MCV MCH MCHC RDW Plt Count Lymph % (Auto) [place] % (Auto) Lymph # [place] # Seg Neutrophils % Seg Neuts % (Manual) Lymphocytes % (Manual) Monocytes % (Manual) Nucleated RBC % Seg Neutrophils # Seg Neutrophils # Man Lymphocytes # (Manual) Monocytes # (Manual) PT INR APTT D-Dimer Heparin Anti-Xa Level POC ABG pH POC ABG pCO2 POC ABG pO2 Sodium Potassium Chloride Carbon Dioxide BUN Creatinine Glucose POC Glucose 162 H 130 H 133 H Lactic Acid Calcium Phosphorus Total Bilirubin C-Reactive Protein NT-Pro-B Natriuret Pep Total Protein Albumin Urine WBC (Auto) Urine Creatinine 08/19/18 08/19/18 08/19/18 01:47 04:55 04:55 WBC RBC 2.86 L Hgb 9.4 L Hct 28.6 L MCV 100 H MCH 33 H MCHC RDW 16.6 H Plt Count Lymph % (Auto) [place] % (Auto) Lymph # [place] # Seg Neutrophils % Seg Neuts % (Manual) Lymphocytes % (Manual) Monocytes % (Manual) Nucleated RBC % Seg Neutrophils # Seg Neutrophils # Man Lymphocytes # (Manual) Monocytes # (Manual) PT INR APTT D-Dimer Heparin Anti-Xa Level POC ABG pH POC ABG pCO2 POC ABG pO2 Sodium Potassium Chloride 97.8 L Carbon Dioxide 32 H BUN Creatinine 0.4 L Glucose 116 H POC Glucose 136 H Lactic Acid Calcium Phosphorus Total Bilirubin C-Reactive Protein NT-Pro-B Natriuret Pep Total Protein Albumin Urine WBC (Auto) Urine Creatinine 08/19/18 08/19/18 08/19/18 05:16 05:41 11:49 WBC RBC Hgb Hct MCV MCH MCHC RDW Plt Count Lymph % (Auto) [place] % (Auto) Lymph # [place] # Seg Neutrophils % Seg Neuts % (Manual) Lymphocytes % (Manual) Monocytes % (Manual) Nucleated RBC % Seg Neutrophils # Seg Neutrophils # Man Lymphocytes # (Manual) Monocytes # (Manual) PT INR APTT D-Dimer Heparin Anti-Xa Level POC ABG pH POC ABG pCO2 57.5 H POC ABG pO2 65 L Sodium Potassium Chloride Carbon Dioxide BUN Creatinine Glucose POC Glucose 119 H 143 H Lactic Acid Calcium Phosphorus Total Bilirubin C-Reactive Protein NT-Pro-B Natriuret Pep Total Protein Albumin Urine WBC (Auto) Urine Creatinine 08/19/18 08/19/18 08/20/18 15:13 21:45 06:03 WBC RBC Hgb Hct MCV MCH MCHC RDW Plt Count Lymph % (Auto) [place] % (Auto) Lymph # [place] # Seg Neutrophils % Seg Neuts % (Manual) Lymphocytes % (Manual) Monocytes % (Manual) Nucleated RBC % Seg Neutrophils # Seg Neutrophils # Man Lymphocytes # (Manual) Monocytes # (Manual) PT INR APTT D-Dimer Heparin Anti-Xa Level POC ABG pH POC ABG pCO2 POC ABG pO2 Sodium Potassium Chloride Carbon Dioxide BUN Creatinine Glucose POC Glucose 155 H 127 H 160 H Lactic Acid Calcium Phosphorus Total Bilirubin C-Reactive Protein NT-Pro-B Natriuret Pep Total Protein Albumin Urine WBC (Auto) Urine Creatinine 08/20/18 08/20/18 08/21/18 12:00 22:10 05:32 WBC RBC Hgb Hct MCV MCH MCHC RDW Plt Count Lymph % (Auto) [place] % (Auto) Lymph # [place] # Seg Neutrophils % Seg Neuts % (Manual) Lymphocytes % (Manual) Monocytes % (Manual) Nucleated RBC % Seg Neutrophils # Seg Neutrophils # Man Lymphocytes # (Manual) Monocytes # (Manual) PT INR APTT D-Dimer Heparin Anti-Xa Level POC ABG pH POC ABG pCO2 POC ABG pO2 Sodium Potassium Chloride Carbon Dioxide BUN Creatinine Glucose POC Glucose 143 H 125 H 121 H Lactic Acid Calcium Phosphorus Total Bilirubin C-Reactive Protein NT-Pro-B Natriuret Pep Total Protein Albumin Urine WBC (Auto) Urine Creatinine 08/21/18 08/21/18 08/22/18 17:37 22:19 05:30 WBC RBC Hgb Hct MCV MCH MCHC RDW Plt Count Lymph % (Auto) [place] % (Auto) Lymph # [place] # Seg Neutrophils % Seg Neuts % (Manual) Lymphocytes % (Manual) Monocytes % (Manual) Nucleated RBC % Seg Neutrophils # Seg Neutrophils # Man Lymphocytes # (Manual) Monocytes # (Manual) PT INR APTT D-Dimer Heparin Anti-Xa Level POC ABG pH POC ABG pCO2 POC ABG pO2 Sodium Potassium Chloride Carbon Dioxide BUN Creatinine Glucose POC Glucose 126 H 129 H 147 H Lactic Acid Calcium Phosphorus Total Bilirubin C-Reactive Protein NT-Pro-B Natriuret Pep Total Protein Albumin Urine WBC (Auto) Urine Creatinine 08/22/18 08/22/18 08/23/18 16:22 21:31 04:37 WBC RBC Hgb Hct MCV MCH MCHC RDW Plt Count Lymph % (Auto) [place] % (Auto) Lymph # [place] # Seg Neutrophils % Seg Neuts % (Manual) Lymphocytes % (Manual) Monocytes % (Manual) Nucleated RBC % Seg Neutrophils # Seg Neutrophils # Man Lymphocytes # (Manual) Monocytes # (Manual) PT INR APTT D-Dimer Heparin Anti-Xa Level POC ABG pH POC ABG pCO2 POC ABG pO2 Sodium Potassium Chloride Carbon Dioxide BUN Creatinine 0.5 L Glucose 141 H POC Glucose 141 H 107 H Lactic Acid Calcium Phosphorus Total Bilirubin C-Reactive Protein NT-Pro-B Natriuret Pep Total Protein Albumin Urine WBC (Auto) Urine Creatinine 08/23/18 04:37 WBC RBC 2.94 L Hgb 9.7 L Hct 30.0 L MCV 102 H MCH 33 H MCHC RDW 17.0 H Plt Count 509 H Lymph % (Auto) [place] % (Auto) Lymph # [place] # Seg Neutrophils % Seg Neuts % (Manual) Lymphocytes % (Manual) Monocytes % (Manual) Nucleated RBC % Seg Neutrophils # Seg Neutrophils # Man Lymphocytes # (Manual) Monocytes # (Manual) PT INR APTT D-Dimer Heparin Anti-Xa Level POC ABG pH POC ABG pCO2 POC ABG pO2 Sodium Potassium Chloride Carbon Dioxide BUN Creatinine Glucose POC Glucose Lactic Acid Calcium Phosphorus Total Bilirubin C-Reactive Protein NT-Pro-B Natriuret Pep Total Protein Albumin Urine WBC (Auto) Urine Creatinine Allied health notes reviewed: nursing
--- NOTE | 2018-08-23 10:45 | Progress Note ---
Assessment and Plan Cultures: 07/27/2018 tracheal aspirate culture: Pseudomonas aeruginosa, MSSA 07/28/2018 blood culture: 4 out of 4 bottles positive for Streptococcus anginosus 07/28/2018 fungal blood culture: In progress but no growth thus far 07/29/2018 urine culture: No growth 08/01/2018 blood culture: negative thus far 08/11/2018 blood culture: in process 08/11/2018 urine culture: no growth 08/15/2018 sputum culture: MSSA, E.coli, Pseudomonas Assessment: 73-year-old male with COPD, peripheral vascular disease, hypertension, hyperlipidemia, seizure disorder admitted with: 1) New sepsis: resolved; secondary to pneumonia. Final sputum cultures, growing E.coli, Pseudomonas and MSSA, all covered by Cefepime. 2) Initial Streptococcus anginosus bacteremia: 4/4 bottles, REGAN was negative. completed treatment. 3) Acute respiratory failure secondary to congestive heart failure and pneumonia: now s/p trach and PEG. 4) CARLEE, present on admission, now resolved. 5) Hematuria on heparin/Uretral striture: s/p cysto and zuniga placement on 08/08/2018 Recs: - Monitor off abx - will ask Urology duration of zuniga Will follow. June Mathur MD [facility] C: [phone] O: [phone] F: [phone] Subjective Date of service: 08/23/18 Principal diagnosis: Acute hypoxemic respiratory failure; A-fib with RVR; Possible CHF; H/O DVT Interval history: Patient reports feeling better, alert, following commands on trach collar. No fever reported. Objective - Exam Narrative Exam: Constitutional: alert in NAD pleasant Head, Ears, Nose: Normocephalic, atraumatic. External ears, nose normal Eyes: Conjunctivae/corneas clear. No icterus. No ptosis. Neck: trach + thin secretions Oral:limited Cardiovascular: RRR Respiratory: dileep scattered rhonchi GI: Soft, bowel sounds normal. No peritoneal signs. PEG tube + Musculoskeletal: no pedal edema, no cyanosis. Skin: No rash or abscess Hem/Lymphatic: No palpable cervical or supraclavicular nodes. No lymphangitis Psych: calm Neurological: awake, able to communicate, follow commands +Zuniga - Constitutional Vitals: Vital Signs Temp Pulse Resp BP Pulse Ox 98.6 F 75 26 H 131/68 92 08/23/18 04:00 08/23/18 08:31 08/23/18 08:31 08/23/18 06:01 08/23/18 08:33 Temperature -Last 24 Hours Temperature 98.6 F Temperature 97.8 F Temperature 97.8 F Temperature 97.9 F Temperature 98.5 F - Labs CBC & Chem 7: 08/23/18 04:37 08/23/18 04:37 Labs: Abnormal lab results 08/22/18 08/22/18 08/23/18 Range/Units 16:22 21:31 04:37 RBC (3.65-5.03) M/mm3 Hgb (11.8-15.2) gm/dl Hct (35.5-45.6) % MCV (84-94) fl MCH (28-32) pg RDW (13.2-15.2) % Plt Count (140-440) K/mm3 Creatinine 0.5 L (0.8-1.5) mg/dL Glucose 141 H (75-100) mg/dL POC Glucose 141 H 107 H (70-105) 08/23/18 Range/Units 04:37 RBC 2.94 L (3.65-5.03) M/mm3 Hgb 9.7 L (11.8-15.2) gm/dl Hct 30.0 L (35.5-45.6) % MCV 102 H (84-94) fl MCH 33 H (28-32) pg RDW 17.0 H (13.2-15.2) % Plt Count 509 H (140-440) K/mm3 Creatinine (0.8-1.5) mg/dL Glucose (75-100) mg/dL POC Glucose (70-105)
[2018-08-23] MEDS: ELIQUIS PO SCH ×2 (12:07→22:12)
[2018-08-23] MEDS: PEPCID PO SCH ×2 (12:07→22:12)
[2018-08-23] MEDS: VITAMIN B-12 PO SCH (12:07)
[2018-08-23] MEDS: CORDARONE PO SCH ×2 (12:07→22:12)
[2018-08-23] MEDS: PRAVACHOL PO SCH (12:07)
[2018-08-23] MEDS: SODIUM CHLORIDE FLUSH SYRINGE 10 ML IV SCH ×2 (12:08→22:14)
--- NOTE | 2018-08-23 20:37 | Progress Note ---
Assessment and Plan Assessment and plan: Continue T piece, wean FiO2 as tolerated -ID input appreciated, monitor off antibiotics patient is 73 yo with H/O COPD, PVD, HTN, HLD, Seizure Disorder, Skin Cancer presented with chest pain, shortness of breath. -He presented in A. fib with RVR, he was medically managed and transitioned from IV to oral medications -The patient suffered respiratory failure for which she was on the ventilator wh ich required prolonged weaning, therefore trach and PEG was placed on 08/11/19. The patient is currently on T piece with FiO2 which is being weaned currently 35% -The patient completed a course of antibiotics for treatment of bacteremia due to Streptococcus anginosus -He was medically treated for acute renal failure with IV fluids and that has not resolved -The patient also suffers a urethral stricture with obstruction and therefore we received a Osborne cath that was placed by urology which is not to be removed -He was medically treated for COPD exacerbation, and medications were optimized for his chronic conditions -The patient's is currently awaiting SNIF placement Diagnosis Septicemia Streptococcus anginous is bacteremia Left lower lobe pneumonia Acute hypoxia was a failure on mechanical ventilator greater than 96 hours Atrial fibrillation with RVR Acute renal failure due to vasomotor nephropathy, Hematuria/Urethral stricture. COPD exacerbation. Hypertension. Hyperlipidemia. Peripheral vascular disease. Disposition.Plan is for snf placement, primary insurance does not cover snf, looking into secondary insurance History Interval history: Review of systems Constitutional: No fevers, no malaise, no joint pains CVS: No chest pain, no orthopnea, no dyspnea on exertion, no pedal edema GI: No abdominal pain, no diarrhea, no vomiting, no constipation Respiratory: No shortness of breath, no wheezing, no coughing Hospitalist Physical - Physical exam Narrative exam: General.: Appears well, no distress, nontoxic HEENT: Tracheostomy in place Neck: supple Cardiac: S1-S2 heard Lungs: clear to auscultation bilaterally Abdomen: soft , nontender, nondistended, bowel sounds positive Extremities: no edema clubbing or cyanosis Skin: no rash or lesions Neurologic: no gross focal deficits Psych: calm, and cooperative - Constitutional Vitals: Temp Pulse Resp BP Pulse Ox 98.5 F 72 15 124/70 89 08/23/18 16:00 08/23/18 20:00 08/23/18 20:00 08/23/18 20:00 08/23/18 20:00 General appearance: Present: other (intubated on mechanical ventilation) Results - Labs CBC & Chem 7: 08/23/18 04:37 08/23/18 04:37 Labs: Laboratory Last Values WBC 9.3 K/mm3 (4.5-11.0) 08/23/18 04:37 RBC 2.94 M/mm3 (3.65-5.03) L 08/23/18 04:37 Hgb 9.7 gm/dl (11.8-15.2) L 08/23/18 04:37 Hct 30.0 % (35.5-45.6) L 08/23/18 04:37 MCV 102 fl (84-94) H 08/23/18 04:37 MCH 33 pg (28-32) H 08/23/18 04:37 MCHC 33 % (32-34) 08/23/18 04:37 RDW 17.0 % (13.2-15.2) H 08/23/18 04:37 Plt Count 509 K/mm3 (140-440) H 08/23/18 04:37 Lymph % (Auto) 3.8 % (13.4-35.0) L 08/16/18 11:06 [place] % (Auto) 5.7 % (0.0-7.3) 08/16/18 11:06 Eos % (Auto) 0.6 % (0.0-4.3) 08/16/18 11:06 Baso % (Auto) 0.4 % (0.0-1.8) 08/16/18 11:06 Lymph # 0.4 K/mm3 (1.2-5.4) L 08/16/18 11:06 [place] # 0.6 K/mm3 (0.0-0.8) 08/16/18 11:06 Eos # 0.1 K/mm3 (0.0-0.4) 08/16/18 11:06 Baso # 0.0 K/mm3 (0.0-0.1) 08/16/18 11:06 Add Manual Diff Complete 08/08/18 02:09 Total Counted 100 08/08/18 02:09 Seg Neutrophils % 89.5 % (40.0-70.0) H 08/16/18 11:06 Seg Neuts % (Manual) 73.0 % (40.0-70.0) H 08/08/18 02:09 Band Neutrophils % 5.0 % 08/08/18 02:09 Lymphocytes % (Manual) 9.0 % (13.4-35.0) L 08/08/18 02:09 Reactive Lymphs % (Man) 0 % 08/08/18 02:09 Monocytes % (Manual) 10.0 % (0.0-7.3) H 08/08/18 02:09 Eosinophils % (Manual) 0 % (0.0-4.3) 08/08/18 02:09 Basophils % (Manual) 0 % (0.0-1.8) 08/08/18 02:09 Metamyelocytes % 3.0 % 08/08/18 02:09 Myelocytes % 0 % 08/08/18 02:09 Promyelocytes % 0 % 08/08/18 02:09 Blast Cells % 0 % 08/08/18 02:09 Nucleated RBC % Not Reportable 08/08/18 02:09 Seg Neutrophils # 9.1 K/mm3 (1.8-7.7) H 08/16/18 11:06 Seg Neutrophils # Man 10.7 K/mm3 (1.8-7.7) H 08/08/18 02:09 Band Neutrophils # 0.7 K/mm3 08/08/18 02:09 Lymphocytes # (Manual) 1.3 K/mm3 (1.2-5.4) 08/08/18 02:09 Abs React Lymphs (Man) 0.0 K/mm3 08/08/18 02:09 Monocytes # (Manual) 1.5 K/mm3 (0.0-0.8) H 08/08/18 02:09 Eosinophils # (Manual) 0.0 K/mm3 (0.0-0.4) 08/08/18 02:09 Basophils # (Manual) 0.0 K/mm3 (0.0-0.1) 08/08/18 02:09 Metamyelocytes # 0.4 K/mm3 08/08/18 02:09 Myelocytes # 0.0 K/mm3 08/08/18 02:09 Promyelocytes # 0.0 K/mm3 08/08/18 02:09 Blast Cells # 0.0 K/mm3 08/08/18 02:09 Pathologist Review 07/28/18 06:01 WBC Morphology Not Reportable 08/08/18 02:09 Hypersegmented Neuts Not Reportable 08/08/18 02:09 Hyposegmented Neuts Not Reportable 08/08/18 02:09 Hypogranular Neuts Not Reportable 08/08/18 02:09 Smudge Cells Not Reportable 08/08/18 02:09 Toxic Granulation Not Reportable 08/08/18 02:09 Toxic Vacuolation Not Reportable 08/08/18 02:09 Dohle Bodies Not Reportable 08/08/18 02:09 Pelger-Huet Anomaly Not Reportable 08/08/18 02:09 Janiya Rods Not Reportable 08/08/18 02:09 Platelet Estimate Appears normal 08/08/18 02:09 Clumped Platelets Not Reportable 08/08/18 02:09 Plt Clumps, EDTA Not Reportable 08/08/18 02:09 Large Platelets Not Reportable 08/08/18 02:09 Giant Platelets Not Reportable 08/08/18 02:09 Platelet Satelliting Not Reportable 08/08/18 02:09 Plt Morphology Comment Not Reportable 08/08/18 02:09 RBC Morphology Not Reportable 08/08/18 02:09 Dimorphic RBCs Not Reportable 08/08/18 02:09 Polychromasia Not Reportable 08/08/18 02:09 Hypochromasia Few 08/08/18 02:09 Poikilocytosis Not Reportable 08/08/18 02:09 Anisocytosis 1+ 08/08/18 02:09 Microcytosis Not Reportable 08/08/18 02:09 Macrocytosis Not Reportable 08/08/18 02:09 Spherocytes Not Reportable 08/08/18 02:09 Pappenheimer Bodies Not Reportable 08/08/18 02:09 Sickle Cells Not Reportable 08/08/18 02:09 Target Cells Not Reportable 08/08/18 02:09 Tear Drop Cells Not Reportable 08/08/18 02:09 Ovalocytes Not Reportable 08/08/18 02:09 Stomatocytes Few 08/08/18 02:09 Helmet Cells Not Reportable 08/08/18 02:09 Lr-[place] Bodies Not Reportable 08/08/18 02:09 Voca Rings Not Reportable 08/08/18 02:09 Armando Cells Not Reportable 08/08/18 02:09 Bite Cells Not Reportable 08/08/18 02:09 Crenated Cell Not Reportable 08/08/18 02:09 Elliptocytes Not Reportable 08/08/18 02:09 Acanthocytes (Spur) Not Reportable 08/08/18 02:09 Rouleaux Not Reportable 08/08/18 02:09 Hemoglobin C Crystals Not Reportable 08/08/18 02:09 Schistocytes Not Reportable 08/08/18 02:09 Malaria parasites Not Reportable 08/08/18 02:09 Jigar Bodies Not Reportable 08/08/18 02:09 Hem Pathologist Commnt No 08/08/18 02:09 PT 13.4 Sec. (12.2-14.9) 08/07/18 15:08 INR 0.98 (0.87-1.13) 08/07/18 15:08 APTT 23.2 Sec. (24.2-36.6) L 08/07/18 15:08 D-Dimer 798.17 ng/mlDDU (0-234) H 07/27/18 15:52 Heparin Anti-Xa Level 1.18 U.I./ml (0.3-0.7) H 08/12/18 14:56 POC ABG pH 7.370 (7.35-7.45) 08/19/18 05:16 POC ABG pCO2 57.5 (35-45) H 08/19/18 05:16 POC ABG pO2 65 (80-105) L 08/19/18 05:16 POC ABG HCO3 33.2 08/19/18 05:16 POC ABG Total CO2 35 08/19/18 05:16 POC ABG O2 Sat 91 08/19/18 05:16 POC ABG Base Excess 8 08/19/18 05:16 FiO2 40 % 08/19/18 05:16 Sodium 138 mmol/L (137-145) 08/23/18 04:37 Potassium 4.0 mmol/L (3.6-5.0) 08/23/18 04:37 Chloride 99.0 mmol/L (98-107) 08/23/18 04:37 Carbon Dioxide 30 mmol/L (22-30) 08/23/18 04:37 Anion Gap 13 mmol/L 08/23/18 04:37 BUN 16 mg/dL (9-20) 08/23/18 04:37 Creatinine 0.5 mg/dL (0.8-1.5) L 08/23/18 04:37 Estimated GFR > 60 ml/min 08/23/18 04:37 BUN/Creatinine Ratio 32 % 08/23/18 04:37 Glucose 141 mg/dL (75-100) H 08/23/18 04:37 POC Glucose 103 (70-105) 08/23/18 15:23 Lactic Acid 1.30 mmol/L (0.7-2.0) 08/03/18 16:48 Calcium 8.8 mg/dL (8.4-10.2) 08/23/18 04:37 Phosphorus 3.30 mg/dL (2.5-4.5) 08/19/18 04:55 Magnesium 2.30 mg/dL (1.7-2.3) 08/19/18 04:55 Total Bilirubin 1.30 mg/dL (0.1-1.2) H 07/27/18 12:59 AST 15 units/L (5-40) 07/27/18 12:59 ALT 16 units/L (7-56) 07/27/18 12:59 Alkaline Phosphatase 62 units/L (35-129) 07/27/18 12:59 Troponin T < 0.010 ng/mL (0.00-0.029) 07/27/18 12:59 C-Reactive Protein 2.30 mg/dL (0.00-1.30) H 08/03/18 16:48 NT-Pro-B Natriuret Pep 3913 pg/mL (0-900) H 07/27/18 12:59 Total Protein 6.2 g/dL (6.3-8.2) L 07/27/18 12:59 Albumin 3.6 g/dL (3.9-5) L 07/27/18 12:59 Albumin/Globulin Ratio 1.4 % 07/27/18 12:59 Triglycerides 64 mg/dL (2-149) 08/08/18 14:02 TSH 1.180 mlU/mL (0.270-4.200) 07/27/18 15:52 Free T4 1.28 ng/dL (0.76-1.46) 07/27/18 15:52 Urine Color Yellow (Yellow) 08/11/18 12:50 Urine Turbidity Clear (Clear) 08/11/18 12:50 Urine pH 6.0 (5.0-7.0) 08/11/18 12:50 Ur Specific [place] 1.015 (1.003-1.030) 08/11/18 12:50 Urine Protein <15 mg/dl mg/dL (Negative) 08/11/18 12:50 Urine Glucose (UA) 50 mg/dL (Negative) 08/11/18 12:50 Urine Ketones Neg mg/dL (Negative) 08/11/18 12:50 Urine Blood Neg (Negative) 08/11/18 12:50 Urine Nitrite Neg (Negative) 08/11/18 12:50 Urine Bilirubin Neg (Negative) 08/11/18 12:50 Urine Urobilinogen 4.0 mg/dL (<2.0) 08/11/18 12:50 Ur Leukocyte Esterase Neg (Negative) 08/11/18 12:50 Urine WBC (Auto) 2.0 /HPF (0.0-6.0) 08/11/18 12:50 Urine RBC (Auto) 2.0 /HPF (0.0-6.0) 08/11/18 12:50 U Epithel Cells (Auto) 2.0 /HPF (0-13.0) 07/29/18 09:24 Urine Bacteria (Auto) 1+ /HPF (Negative) 08/11/18 12:50 Urine Mucus Few /HPF 08/11/18 12:50 Urine Yeast (Budding) 1+ /HPF 07/29/18 09:24 Urine Creatinine 72.3 mg/dL (0.1-20.0) H 07/29/18 09:24 Urine Sodium 12 mmol/L 07/29/18 09:24 Random Vancomycin 9.2 ug/mL (0-40.0) 07/29/18 04:21 Nutrition/Malnutrition Assess - Dietary Evaluation Nutrition/Malnutrition Findings: Nutrition Notes Start: 07/28/18 10:54 Freq: Status: Active Protocol: Document 08/23/18 14:09 CT (Rec: 08/23/18 14:53 CT [id number]) Co-Sign 08/23/18 14:09 RM Nutrition Notes Initial or Follow up Reassessment Current Diagnoses Acute Kidney Injury COPD Sepsis Hypertension Heart Failure Respiratory Failure Other Pertinent Diagnosis Hx of Skin Cancer Current Diet Nepro at 50ml/hr Labs/Tests Reviewed Medications Reviewed Height 5 ft 8 in Weight 76 kg [place] Body Weight (lbs) 154.0 BMI 25.4 Weight change and time frame Recorded wt. loss likely d/t fluid change. Subjective/Other Information Nepro infusing at goal rate of 50mL/hr, well tolerated per RN. Burn Absent Trauma Absent #1 Nutrition Diagnoses Inadequate oral intake Diagnosis Progress(for reassessment Continues documentation) Is patient on ventilator? Yes Is Patient Ambulatory and/or Out of Bed No REE-([facility]-confined to bed) [phone] Calculation Used for Recommendations [facility] Additional Notes protein (1.2-2g/kg): 91-152g fluid: 1mL/kcal Nutrition Intervention Change Diet Order: Continue TF Nutrition Support: Nepro at 50mL/hr 250 mL free water flush q4h or per MD. Kcal 2,160 Protein (gm) 97 Fluid (mL) 872 Goal #1 TF tolerance and rate Goal #2 Continue to meet at least 80% of kcal needs and 80-100% of protein needs. Follow-Up By: 08/30/18 Additional Comments F/U: stable TF
[2018-08-23] MEDS: LANTUS SUB-Q SCH (23:35)
[2018-08-24] MEDS: HumaLOG SUB-Q SCH ×4 (03:18→22:44)
--- NOTE | 2018-08-24 07:54 | Progress Note ---
Assessment and Plan Patient sleeping at this time. On T tube. FIO2 40% O2 saturation 92%. No acute respiratory distress.. - Patient Problems (1) Acute respiratory failure Current Visit: Yes Status: Acute Qualifiers: Respiratory failure complication: hypoxia Qualified Code(s): J96.01 - Acute respiratory failure with hypoxia Plan to address problem: T tube FIO2 40%. Brovanna/Budesonide aerosol treatments q 12 hours. Albuterol/atrovent aerosol treatments q 6 hours PRN for shortness of breath. Patient is on Apixaban. Continue famotidine. (2) Atrial fibrillation with RVR Current Visit: Yes Status: Acute Plan to address problem: Patient is on Apixaban. Management as per cardiology. (3) CHF (congestive heart failure) Current Visit: Yes Status: Acute Qualifiers: Heart failure type: systolic Heart failure chronicity: acute Qualified Code(s): I50.21 - Acute systolic (congestive) heart failure Plan to address problem: Management as per primary care and cardiology. (4) Pneumonia Current Visit: Yes Status: Acute Plan to address problem: Finished course of cefepime. Repeating chest xray. (5) COPD (chronic obstructive pulmonary disease) Current Visit: Yes Status: Chronic Plan to address problem: T tube FIO2 40%. Brovanna/Budesonide aerosol treatments q 12 hours. Albuterol/atrovent aerosol treatments q 6 hours PRN for shortness of breath. Patient is on Apixaban. Continue famotidine. (6) Hypertension Current Visit: Yes Status: Chronic Qualifiers: Hypertension type: essential hypertension Qualified Code(s): I10 - Essential (primary) hypertension Plan to address problem: Management as per primary care. Subjective Date of service: 08/24/18 Principal diagnosis: Acute hypoxemic respiratory failure; A-fib with RVR; Possible CHF; H/O DVT Interval history: Patient sleeping at this time. On T tube. FIO2 40% O2 saturation 92%. No acute respiratory distress.. Objective Vital Signs - 12hr 08/23/18 08/23/18 08/23/18 20:00 20:17 20:40 Temperature 98 F Pulse Rate 72 72 Pulse Rate [ 73 Bilateral] Pulse Rate [ 72 From Monitor] Respiratory 17 13 Rate Respiratory 23 Rate [Bilateral ] Blood Pressure 124/70 124/70 O2 Sat by Pulse 94 90 93 Oximetry O2 Sat by Pulse Oximetry [ Assessment] 08/23/18 08/23/18 08/23/18 20:50 21:00 21:49 Temperature Pulse Rate 73 Pulse Rate [ 77 Bilateral] Pulse Rate [ From Monitor] Respiratory 21 Rate Respiratory 23 Rate [Bilateral ] Blood Pressure 138/75 O2 Sat by Pulse 92 Oximetry O2 Sat by Pulse 92 Oximetry [ Assessment] 08/23/18 08/23/18 08/23/18 22:00 22:12 23:01 Temperature Pulse Rate 73 85 Pulse Rate [ Bilateral] Pulse Rate [ From Monitor] Respiratory 27 H 14 26 H Rate Respiratory Rate [Bilateral ] Blood Pressure 127/73 114/64 O2 Sat by Pulse 95 92 Oximetry O2 Sat by Pulse Oximetry [ Assessment] 08/24/18 08/24/18 08/24/18 00:00 00:01 01:00 Temperature 98.1 F Pulse Rate 74 78 Pulse Rate [ Bilateral] Pulse Rate [ 72 From Monitor] Respiratory 24 25 H 23 Rate Respiratory Rate [Bilateral ] Blood Pressure 109/56 109/58 O2 Sat by Pulse 98 93 93 Oximetry O2 Sat by Pulse Oximetry [ Assessment] 08/24/18 08/24/18 08/24/18 02:00 03:00 04:00 Temperature 97.8 F Pulse Rate 73 70 75 Pulse Rate [ Bilateral] Pulse Rate [ From Monitor] Respiratory 27 H 28 H 23 Rate Respiratory Rate [Bilateral ] Blood Pressure 109/65 108/63 108/63 O2 Sat by Pulse 92 93 93 Oximetry O2 Sat by Pulse Oximetry [ Assessment] 08/24/18 08/24/18 08/24/18 05:00 06:00 07:00 Temperature Pulse Rate 69 69 71 Pulse Rate [ Bilateral] Pulse Rate [ From Monitor] Respiratory 25 H 26 H 26 H Rate Respiratory Rate [Bilateral ] Blood Pressure 103/49 115/63 116/56 O2 Sat by Pulse 95 92 90 Oximetry O2 Sat by Pulse Oximetry [ Assessment] Constitutional: no acute distress, alert, other (elderly looking CM, normocephalic and atraumatic with normal respiratory effort) Eyes: non-icteric ENT: oropharynx moist, other (s/p tracheosomy) Neck: supple, no lymphadenopathy, no JVD, other (No thyromegaly) Effort: mildly labored Ascultation: Bilateral: diminished breath sounds, rhonchi Percussion: Bilateral: not dull Cardiovascular: irregular rhythm, other (+ systolic murmur) Gastrointestinal: normoactive bowel sounds, soft, non-tender, non-distended, other (No palpable HSM) Integumentary: rash, other (upper extremity edema) Extremities: no cyanosis, pink and warm, pulses normal, no ischemia or petechiae Neurologic: normal mental status, non-focal exam (grossly), pupils equal and round, CN II-XII normal, other (moves all extemities) Psychiatric: mood appropriate, affect normal CBC and BMP: 08/23/18 04:37 08/23/18 04:37 ABG, PT/INR, D-dimer: ABG POC ABG pH 7.370 (7.35-7.45) 08/19/18 05:16 POC ABG pCO2 57.5 (35-45) H 08/19/18 05:16 POC ABG pO2 65 (80-105) L 08/19/18 05:16 POC ABG HCO3 33.2 08/19/18 05:16 POC ABG Total CO2 35 08/19/18 05:16 POC ABG O2 Sat 91 08/19/18 05:16 PT/INR, D-dimer PT 13.4 Sec. (12.2-14.9) 08/07/18 15:08 INR 0.98 (0.87-1.13) 08/07/18 15:08 D-Dimer 798.17 ng/mlDDU (0-234) H 07/27/18 15:52 Abnormal lab findings: Abnormal Labs 07/27/18 07/27/18 07/27/18 12:59 12:59 12:59 WBC 15.8 H RBC Hgb Hct MCV 104 H MCH 34 H MCHC RDW 16.3 H Plt Count Lymph % (Auto) [place] % (Auto) Lymph # [place] # Seg Neutrophils % Seg Neuts % (Manual) 88.0 H Lymphocytes % (Manual) 3.0 L Monocytes % (Manual) Nucleated RBC % Seg Neutrophils # Seg Neutrophils # Man 13.9 H Lymphocytes # (Manual) 0.5 L Monocytes # (Manual) PT 17.0 H INR 1.34 H APTT D-Dimer Heparin Anti-Xa Level POC ABG pH POC ABG pCO2 POC ABG pO2 Sodium Potassium Chloride Carbon Dioxide 21 L BUN 38 H Creatinine 1.6 H Glucose POC Glucose Lactic Acid Calcium Phosphorus Total Bilirubin 1.30 H C-Reactive Protein NT-Pro-B Natriuret Pep 3913 H Total Protein 6.2 L Albumin 3.6 L Urine WBC (Auto) Urine Creatinine 07/27/18 07/27/18 07/27/18 15:52 16:12 17:09 WBC RBC Hgb Hct MCV MCH MCHC RDW Plt Count Lymph % (Auto) [place] % (Auto) Lymph # [place] # Seg Neutrophils % Seg Neuts % (Manual) Lymphocytes % (Manual) Monocytes % (Manual) Nucleated RBC % Seg Neutrophils # Seg Neutrophils # Man Lymphocytes # (Manual) Monocytes # (Manual) PT 16.0 H INR 1.24 H APTT D-Dimer 798.17 H Heparin Anti-Xa Level POC ABG pH POC ABG pCO2 POC ABG pO2 Sodium Potassium Chloride Carbon Dioxide BUN Creatinine Glucose POC Glucose Lactic Acid 5.00 H* Calcium Phosphorus Total Bilirubin C-Reactive Protein NT-Pro-B Natriuret Pep Total Protein Albumin Urine WBC (Auto) Urine Creatinine 07/27/18 07/27/18 07/27/18 17:59 18:07 21:31 WBC RBC Hgb Hct MCV MCH MCHC RDW Plt Count Lymph % (Auto) [place] % (Auto) Lymph # [place] # Seg Neutrophils % Seg Neuts % (Manual) Lymphocytes % (Manual) Monocytes % (Manual) Nucleated RBC % Seg Neutrophils # Seg Neutrophils # Man Lymphocytes # (Manual) Monocytes # (Manual) PT INR APTT D-Dimer Heparin Anti-Xa Level POC ABG pH 7.344 L POC ABG pCO2 POC ABG pO2 36 L Sodium Potassium Chloride Carbon Dioxide BUN Creatinine Glucose POC Glucose Lactic Acid 5.20 H* 5.00 H* Calcium Phosphorus Total Bilirubin C-Reactive Protein NT-Pro-B Natriuret Pep Total Protein Albumin Urine WBC (Auto) Urine Creatinine 07/27/18 07/27/18 07/27/18 21:57 22:42 23:26 WBC RBC Hgb Hct MCV MCH MCHC RDW Plt Count Lymph % (Auto) [place] % (Auto) Lymph # [place] # Seg Neutrophils % Seg Neuts % (Manual) Lymphocytes % (Manual) Monocytes % (Manual) Nucleated RBC % Seg Neutrophils # Seg Neutrophils # Man Lymphocytes # (Manual) Monocytes # (Manual) PT INR APTT D-Dimer Heparin Anti-Xa Level POC ABG pH 7.199 L POC ABG pCO2 62.0 H POC ABG pO2 Sodium Potassium Chloride Carbon Dioxide BUN Creatinine Glucose POC Glucose Lactic Acid 4.70 H* 5.00 H* Calcium Phosphorus Total Bilirubin C-Reactive Protein NT-Pro-B Natriuret Pep Total Protein Albumin Urine WBC (Auto) Urine Creatinine 07/28/18 07/28/18 07/28/18 00:45 05:40 05:58 WBC RBC Hgb Hct MCV MCH MCHC RDW Plt Count Lymph % (Auto) [place] % (Auto) Lymph # [place] # Seg Neutrophils % Seg Neuts % (Manual) Lymphocytes % (Manual) Monocytes % (Manual) Nucleated RBC % Seg Neutrophils # Seg Neutrophils # Man Lymphocytes # (Manual) Monocytes # (Manual) PT INR APTT D-Dimer Heparin Anti-Xa Level 0.11 L POC ABG pH 7.186 L POC ABG pCO2 60.1 H POC ABG pO2 68 L Sodium Potassium Chloride Carbon Dioxide BUN Creatinine Glucose POC Glucose Lactic Acid 4.70 H* Calcium Phosphorus Total Bilirubin C-Reactive Protein NT-Pro-B Natriuret Pep Total Protein Albumin Urine WBC (Auto) Urine Creatinine 07/28/18 07/28/18 07/28/18 06:01 06:01 07:19 WBC 12.5 H RBC 3.51 L Hgb 11.5 L Hct MCV 104 H MCH 33 H MCHC RDW 16.6 H Plt Count Lymph % (Auto) [place] % (Auto) Lymph # [place] # Seg Neutrophils % Seg Neuts % (Manual) Lymphocytes % (Manual) Monocytes % (Manual) Nucleated RBC % Seg Neutrophils # Seg Neutrophils # Man Lymphocytes # (Manual) Monocytes # (Manual) PT INR APTT D-Dimer Heparin Anti-Xa Level 0.14 L POC ABG pH POC ABG pCO2 POC ABG pO2 Sodium 135 L Potassium 5.1 H Chloride 95.0 L Carbon Dioxide 21 L BUN 54 H Creatinine 2.6 H D Glucose POC Glucose Lactic Acid Calcium Phosphorus Total Bilirubin C-Reactive Protein NT-Pro-B Natriuret Pep Total Protein Albumin Urine WBC (Auto) Urine Creatinine 07/28/18 07/28/18 07/28/18 07:19 09:20 11:06 WBC RBC Hgb Hct MCV MCH MCHC RDW Plt Count Lymph % (Auto) [place] % (Auto) Lymph # [place] # Seg Neutrophils % Seg Neuts % (Manual) Lymphocytes % (Manual) Monocytes % (Manual) Nucleated RBC % Seg Neutrophils # Seg Neutrophils # Man Lymphocytes # (Manual) Monocytes # (Manual) PT INR APTT D-Dimer Heparin Anti-Xa Level POC ABG pH 7.266 L POC ABG pCO2 49.7 H POC ABG pO2 74 L Sodium Potassium Chloride Carbon Dioxide BUN Creatinine Glucose POC Glucose Lactic Acid 4.00 H* 3.90 H* Calcium Phosphorus Total Bilirubin C-Reactive Protein NT-Pro-B Natriuret Pep Total Protein Albumin Urine WBC (Auto) Urine Creatinine 07/28/18 07/28/18 07/28/18 15:06 20:45 23:36 WBC RBC Hgb Hct MCV MCH MCHC RDW Plt Count Lymph % (Auto) [place] % (Auto) Lymph # [place] # Seg Neutrophils % Seg Neuts % (Manual) Lymphocytes % (Manual) Monocytes % (Manual) Nucleated RBC % Seg Neutrophils # Seg Neutrophils # Man Lymphocytes # (Manual) Monocytes # (Manual) PT INR APTT D-Dimer Heparin Anti-Xa Level 0.15 L POC ABG pH POC ABG pCO2 POC ABG pO2 Sodium 134 L Potassium 5.2 H Chloride Carbon Dioxide BUN 58 H Creatinine 2.1 H Glucose 110 H POC Glucose 125 H Lactic Acid Calcium Phosphorus Total Bilirubin C-Reactive Protein NT-Pro-B Natriuret Pep Total Protein Albumin Urine WBC (Auto) Urine Creatinine 07/29/18 07/29/18 07/29/18 01:12 04:21 04:21 WBC RBC 3.21 L Hgb 10.8 L Hct 33.0 L MCV 103 H MCH 34 H MCHC RDW 16.4 H Plt Count Lymph % (Auto) [place] % (Auto) Lymph # [place] # Seg Neutrophils % Seg Neuts % (Manual) Lymphocytes % (Manual) 11.0 L Monocytes % (Manual) Nucleated RBC % Seg Neutrophils # Seg Neutrophils # Man Lymphocytes # (Manual) 1.0 L Monocytes # (Manual) PT INR APTT D-Dimer Heparin Anti-Xa Level 0.21 L POC ABG pH POC ABG pCO2 POC ABG pO2 Sodium Potassium Chloride Carbon Dioxide BUN 48 H Creatinine 1.6 H Glucose 166 H POC Glucose Lactic Acid Calcium Phosphorus Total Bilirubin C-Reactive Protein NT-Pro-B Natriuret Pep Total Protein Albumin Urine WBC (Auto) Urine Creatinine 07/29/18 07/29/18 07/29/18 05:19 08:16 09:24 WBC RBC Hgb Hct MCV MCH MCHC RDW Plt Count Lymph % (Auto) [place] % (Auto) Lymph # [place] # Seg Neutrophils % Seg Neuts % (Manual) Lymphocytes % (Manual) Monocytes % (Manual) Nucleated RBC % Seg Neutrophils # Seg Neutrophils # Man Lymphocytes # (Manual) Monocytes # (Manual) PT INR APTT D-Dimer Heparin Anti-Xa Level 0.25 L POC ABG pH POC ABG pCO2 POC ABG pO2 Sodium Potassium Chloride Carbon Dioxide BUN Creatinine Glucose POC Glucose 181 H Lactic Acid Calcium Phosphorus Total Bilirubin C-Reactive Protein NT-Pro-B Natriuret Pep Total Protein Albumin Urine WBC (Auto) 29.0 H Urine Creatinine 07/29/18 07/29/18 07/29/18 09:24 10:00 15:03 WBC RBC Hgb Hct MCV MCH MCHC RDW Plt Count Lymph % (Auto) [place] % (Auto) Lymph # [place] # Seg Neutrophils % Seg Neuts % (Manual) Lymphocytes % (Manual) Monocytes % (Manual) Nucleated RBC % Seg Neutrophils # Seg Neutrophils # Man Lymphocytes # (Manual) Monocytes # (Manual) PT INR APTT D-Dimer Heparin Anti-Xa Level POC ABG pH POC ABG pCO2 POC ABG pO2 Sodium Potassium Chloride Carbon Dioxide BUN Creatinine Glucose POC Glucose 195 H 167 H Lactic Acid Calcium Phosphorus Total Bilirubin C-Reactive Protein NT-Pro-B Natriuret Pep Total Protein Albumin Urine WBC (Auto) Urine Creatinine 72.3 H 07/29/18 07/29/18 07/30/18 17:51 21:32 01:38 WBC RBC Hgb Hct MCV MCH MCHC RDW Plt Count Lymph % (Auto) [place] % (Auto) Lymph # [place] # Seg Neutrophils % Seg Neuts % (Manual) Lymphocytes % (Manual) Monocytes % (Manual) Nucleated RBC % Seg Neutrophils # Seg Neutrophils # Man Lymphocytes # (Manual) Monocytes # (Manual) PT INR APTT D-Dimer Heparin Anti-Xa Level POC ABG pH POC ABG pCO2 POC ABG pO2 Sodium Potassium Chloride Carbon Dioxide BUN Creatinine Glucose POC Glucose 167 H 217 H 194 H Lactic Acid Calcium Phosphorus Total Bilirubin C-Reactive Protein NT-Pro-B Natriuret Pep Total Protein Albumin Urine WBC (Auto) Urine Creatinine 07/30/18 07/30/18 07/30/18 03:21 05:13 10:18 WBC RBC Hgb Hct MCV MCH MCHC RDW Plt Count Lymph % (Auto) [place] % (Auto) Lymph # [place] # Seg Neutrophils % Seg Neuts % (Manual) Lymphocytes % (Manual) Monocytes % (Manual) Nucleated RBC % Seg Neutrophils # Seg Neutrophils # Man Lymphocytes # (Manual) Monocytes # (Manual) PT INR APTT D-Dimer Heparin Anti-Xa Level POC ABG pH POC ABG pCO2 50.3 H POC ABG pO2 78 L Sodium Potassium Chloride Carbon Dioxide BUN 41 H Creatinine Glucose 202 H POC Glucose 151 H Lactic Acid Calcium Phosphorus Total Bilirubin C-Reactive Protein NT-Pro-B Natriuret Pep Total Protein Albumin Urine WBC (Auto) Urine Creatinine 07/30/18 07/30/18 07/30/18 11:29 16:28 18:12 WBC RBC Hgb Hct MCV MCH MCHC RDW Plt Count Lymph % (Auto) [place] % (Auto) Lymph # [place] # Seg Neutrophils % Seg Neuts % (Manual) Lymphocytes % (Manual) Monocytes % (Manual) Nucleated RBC % Seg Neutrophils # Seg Neutrophils # Man Lymphocytes # (Manual) Monocytes # (Manual) PT INR APTT D-Dimer Heparin Anti-Xa Level POC ABG pH 7.326 L POC ABG pCO2 53.2 H POC ABG pO2 70 L Sodium Potassium Chloride Carbon Dioxide BUN Creatinine Glucose POC Glucose 247 H 212 H Lactic Acid Calcium Phosphorus Total Bilirubin C-Reactive Protein NT-Pro-B Natriuret Pep Total Protein Albumin Urine WBC (Auto) Urine Creatinine 07/30/18 07/30/18 07/31/18 20:08 21:52 01:59 WBC RBC Hgb Hct MCV MCH MCHC RDW Plt Count Lymph % (Auto) [place] % (Auto) Lymph # [place] # Seg Neutrophils % Seg Neuts % (Manual) Lymphocytes % (Manual) Monocytes % (Manual) Nucleated RBC % Seg Neutrophils # Seg Neutrophils # Man Lymphocytes # (Manual) Monocytes # (Manual) PT INR APTT D-Dimer Heparin Anti-Xa Level POC ABG pH POC ABG pCO2 POC ABG pO2 Sodium Potassium Chloride Carbon Dioxide BUN Creatinine Glucose POC Glucose 205 H 215 H 242 H Lactic Acid Calcium Phosphorus Total Bilirubin C-Reactive Protein NT-Pro-B Natriuret Pep Total Protein Albumin Urine WBC (Auto) Urine Creatinine 07/31/18 07/31/18 07/31/18 03:14 03:14 04:55 WBC RBC Hgb 10.6 L Hct 33.2 L MCV MCH MCHC RDW Plt Count Lymph % (Auto) [place] % (Auto) Lymph # [place] # Seg Neutrophils % Seg Neuts % (Manual) Lymphocytes % (Manual) Monocytes % (Manual) Nucleated RBC % Seg Neutrophils # Seg Neutrophils # Man Lymphocytes # (Manual) Monocytes # (Manual) PT INR APTT D-Dimer Heparin Anti-Xa Level POC ABG pH 7.331 L POC ABG pCO2 67.1 H POC ABG pO2 Sodium Potassium Chloride Carbon Dioxide BUN 36 H Creatinine 0.7 L Glucose 242 H POC Glucose Lactic Acid Calcium 10.3 H Phosphorus 2.30 L Total Bilirubin C-Reactive Protein NT-Pro-B Natriuret Pep Total Protein Albumin Urine WBC (Auto) Urine Creatinine 07/31/18 07/31/18 07/31/18 05:37 10:08 14:07 WBC RBC Hgb Hct MCV MCH MCHC RDW Plt Count Lymph % (Auto) [place] % (Auto) Lymph # [place] # Seg Neutrophils % Seg Neuts % (Manual) Lymphocytes % (Manual) Monocytes % (Manual) Nucleated RBC % Seg Neutrophils # Seg Neutrophils # Man Lymphocytes # (Manual) Monocytes # (Manual) PT INR APTT D-Dimer Heparin Anti-Xa Level POC ABG pH POC ABG pCO2 POC ABG pO2 Sodium Potassium Chloride Carbon Dioxide BUN Creatinine Glucose POC Glucose 193 H 247 H 225 H Lactic Acid Calcium Phosphorus Total Bilirubin C-Reactive Protein NT-Pro-B Natriuret Pep Total Protein Albumin Urine WBC (Auto) Urine Creatinine 07/31/18 07/31/18 08/01/18 18:12 21:34 02:00 WBC RBC Hgb Hct MCV MCH MCHC RDW Plt Count Lymph % (Auto) [place] % (Auto) Lymph # [place] # Seg Neutrophils % Seg Neuts % (Manual) Lymphocytes % (Manual) Monocytes % (Manual) Nucleated RBC % Seg Neutrophils # Seg Neutrophils # Man Lymphocytes # (Manual) Monocytes # (Manual) PT INR APTT D-Dimer Heparin Anti-Xa Level POC ABG pH POC ABG pCO2 POC ABG pO2 Sodium Potassium Chloride Carbon Dioxide BUN Creatinine Glucose POC Glucose 197 H 204 H 239 H Lactic Acid Calcium Phosphorus Total Bilirubin C-Reactive Protein NT-Pro-B Natriuret Pep Total Protein Albumin Urine WBC (Auto) Urine Creatinine 08/01/18 08/01/18 08/01/18 04:13 04:37 05:29 WBC RBC Hgb Hct MCV MCH MCHC RDW Plt Count Lymph % (Auto) [place] % (Auto) Lymph # [place] # Seg Neutrophils % Seg Neuts % (Manual) Lymphocytes % (Manual) Monocytes % (Manual) Nucleated RBC % Seg Neutrophils # Seg Neutrophils # Man Lymphocytes # (Manual) Monocytes # (Manual) PT INR APTT D-Dimer Heparin Anti-Xa Level POC ABG pH 7.296 L POC ABG pCO2 81.9 H POC ABG pO2 190 H Sodium 150 H D Potassium Chloride Carbon Dioxide 37 H D BUN 37 H Creatinine 0.6 L Glucose 223 H POC Glucose 219 H Lactic Acid Calcium Phosphorus Total Bilirubin C-Reactive Protein NT-Pro-B Natriuret Pep Total Protein Albumin Urine WBC (Auto) Urine Creatinine 08/01/18 08/01/18 08/01/18 09:28 11:00 17:36 WBC RBC Hgb Hct MCV MCH MCHC RDW Plt Count Lymph % (Auto) [place] % (Auto) Lymph # [place] # Seg Neutrophils % Seg Neuts % (Manual) Lymphocytes % (Manual) Monocytes % (Manual) Nucleated RBC % Seg Neutrophils # Seg Neutrophils # Man Lymphocytes # (Manual) Monocytes # (Manual) PT INR APTT D-Dimer Heparin Anti-Xa Level POC ABG pH POC ABG pCO2 61.2 H POC ABG pO2 69 L Sodium Potassium Chloride Carbon Dioxide BUN Creatinine Glucose POC Glucose 185 H 234 H Lactic Acid Calcium Phosphorus Total Bilirubin C-Reactive Protein NT-Pro-B Natriuret Pep Total Protein Albumin Urine WBC (Auto) Urine Creatinine 08/01/18 08/02/18 08/02/18 21:54 00:08 00:44 WBC RBC Hgb Hct MCV MCH MCHC RDW Plt Count Lymph % (Auto) [place] % (Auto) Lymph # [place] # Seg Neutrophils % Seg Neuts % (Manual) Lymphocytes % (Manual) Monocytes % (Manual) Nucleated RBC % Seg Neutrophils # Seg Neutrophils # Man Lymphocytes # (Manual) Monocytes # (Manual) PT INR APTT D-Dimer Heparin Anti-Xa Level 0.77 H POC ABG pH POC ABG pCO2 66.4 H POC ABG pO2 64 L Sodium Potassium Chloride Carbon Dioxide BUN Creatinine Glucose POC Glucose 242 H Lactic Acid Calcium Phosphorus Total Bilirubin C-Reactive Protein NT-Pro-B Natriuret Pep Total Protein Albumin Urine WBC (Auto) Urine Creatinine 08/02/18 08/02/18 08/02/18 02:46 04:45 04:45 WBC RBC Hgb 10.7 L Hct 33.7 L MCV MCH MCHC RDW Plt Count Lymph % (Auto) [place] % (Auto) Lymph # [place] # Seg Neutrophils % Seg Neuts % (Manual) Lymphocytes % (Manual) Monocytes % (Manual) Nucleated RBC % Seg Neutrophils # Seg Neutrophils # Man Lymphocytes # (Manual) Monocytes # (Manual) PT INR APTT D-Dimer Heparin Anti-Xa Level POC ABG pH POC ABG pCO2 POC ABG pO2 Sodium 152 H Potassium Chloride 108.1 H Carbon Dioxide 39 H BUN 38 H Creatinine 0.6 L Glucose 226 H POC Glucose 206 H Lactic Acid Calcium Phosphorus Total Bilirubin C-Reactive Protein NT-Pro-B Natriuret Pep Total Protein Albumin Urine WBC (Auto) Urine Creatinine 08/02/18 08/02/18 08/02/18 05:31 09:46 14:23 WBC RBC Hgb Hct MCV MCH MCHC RDW Plt Count Lymph % (Auto) [place] % (Auto) Lymph # [place] # Seg Neutrophils % Seg Neuts % (Manual) Lymphocytes % (Manual) Monocytes % (Manual) Nucleated RBC % Seg Neutrophils # Seg Neutrophils # Man Lymphocytes # (Manual) Monocytes # (Manual) PT INR APTT D-Dimer Heparin Anti-Xa Level 0.91 H POC ABG pH POC ABG pCO2 POC ABG pO2 Sodium Potassium Chloride Carbon Dioxide BUN Creatinine Glucose POC Glucose 214 H 210 H Lactic Acid Calcium Phosphorus Total Bilirubin C-Reactive Protein NT-Pro-B Natriuret Pep Total Protein Albumin Urine WBC (Auto) Urine Creatinine 08/02/18 08/02/18 08/02/18 15:46 17:56 21:50 WBC RBC Hgb Hct MCV MCH MCHC RDW Plt Count Lymph % (Auto) [place] % (Auto) Lymph # [place] # Seg Neutrophils % Seg Neuts % (Manual) Lymphocytes % (Manual) Monocytes % (Manual) Nucleated RBC % Seg Neutrophils # Seg Neutrophils # Man Lymphocytes # (Manual) Monocytes # (Manual) PT INR APTT D-Dimer Heparin Anti-Xa Level 0.99 H POC ABG pH POC ABG pCO2 POC ABG pO2 Sodium Potassium Chloride Carbon Dioxide BUN Creatinine Glucose POC Glucose 252 H 222 H Lactic Acid Calcium Phosphorus Total Bilirubin C-Reactive Protein NT-Pro-B Natriuret Pep Total Protein Albumin Urine WBC (Auto) Urine Creatinine 08/03/18 08/03/18 08/03/18 02:18 05:21 05:25 WBC RBC Hgb Hct MCV MCH MCHC RDW Plt Count Lymph % (Auto) [place] % (Auto) Lymph # [place] # Seg Neutrophils % Seg Neuts % (Manual) Lymphocytes % (Manual) Monocytes % (Manual) Nucleated RBC % Seg Neutrophils # Seg Neutrophils # Man Lymphocytes # (Manual) Monocytes # (Manual) PT INR APTT D-Dimer Heparin Anti-Xa Level POC ABG pH POC ABG pCO2 POC ABG pO2 Sodium 151 H Potassium Chloride 107.3 H Carbon Dioxide 37 H BUN 42 H Creatinine 0.6 L Glucose 263 H POC Glucose 241 H 241 H Lactic Acid Calcium Phosphorus Total Bilirubin C-Reactive Protein NT-Pro-B Natriuret Pep Total Protein Albumin Urine WBC (Auto) Urine Creatinine 08/03/18 08/03/18 08/03/18 09:11 12:20 14:33 WBC RBC Hgb Hct MCV MCH MCHC RDW Plt Count Lymph % (Auto) [place] % (Auto) Lymph # [place] # Seg Neutrophils % Seg Neuts % (Manual) Lymphocytes % (Manual) Monocytes % (Manual) Nucleated RBC % Seg Neutrophils # Seg Neutrophils # Man Lymphocytes # (Manual) Monocytes # (Manual) PT INR APTT D-Dimer Heparin Anti-Xa Level POC ABG pH POC ABG pCO2 POC ABG pO2 Sodium Potassium Chloride Carbon Dioxide BUN Creatinine Glucose POC Glucose 272 H 234 H 247 H Lactic Acid Calcium Phosphorus Total Bilirubin C-Reactive Protein NT-Pro-B Natriuret Pep Total Protein Albumin Urine WBC (Auto) Urine Creatinine 08/03/18 08/03/18 08/04/18 16:48 21:21 01:56 WBC RBC Hgb Hct MCV MCH MCHC RDW Plt Count Lymph % (Auto) [place] % (Auto) Lymph # [place] # Seg Neutrophils % Seg Neuts % (Manual) Lymphocytes % (Manual) Monocytes % (Manual) Nucleated RBC % Seg Neutrophils # Seg Neutrophils # Man Lymphocytes # (Manual) Monocytes # (Manual) PT INR APTT D-Dimer Heparin Anti-Xa Level POC ABG pH POC ABG pCO2 POC ABG pO2 Sodium Potassium Chloride Carbon Dioxide BUN Creatinine Glucose POC Glucose 180 H 189 H Lactic Acid Calcium Phosphorus Total Bilirubin C-Reactive Protein 2.30 H NT-Pro-B Natriuret Pep Total Protein Albumin Urine WBC (Auto) Urine Creatinine 08/04/18 08/04/18 08/04/18 01:58 05:05 05:05 WBC 25.5 H RBC 3.31 L Hgb 10.8 L Hct 34.1 L MCV 103 H MCH 33 H MCHC RDW 16.0 H Plt Count Lymph % (Auto) [place] % (Auto) Lymph # [place] # Seg Neutrophils % Seg Neuts % (Manual) Lymphocytes % (Manual) 8.0 L Monocytes % (Manual) Nucleated RBC % 2.0 H Seg Neutrophils # Seg Neutrophils # Man 16.3 H Lymphocytes # (Manual) Monocytes # (Manual) 1.0 H PT INR APTT D-Dimer Heparin Anti-Xa Level 0.79 H POC ABG pH POC ABG pCO2 POC ABG pO2 Sodium 148 H Potassium Chloride Carbon Dioxide 36 H BUN 35 H Creatinine 0.6 L Glucose 160 H POC Glucose Lactic Acid Calcium Phosphorus Total Bilirubin C-Reactive Protein NT-Pro-B Natriuret Pep Total Protein Albumin Urine WBC (Auto) Urine Creatinine 08/04/18 08/04/18 08/04/18 05:24 05:33 08:46 WBC RBC Hgb Hct MCV MCH MCHC RDW Plt Count Lymph % (Auto) [place] % (Auto) Lymph # [place] # Seg Neutrophils % Seg Neuts % (Manual) Lymphocytes % (Manual) Monocytes % (Manual) Nucleated RBC % Seg Neutrophils # Seg Neutrophils # Man Lymphocytes # (Manual) Monocytes # (Manual) PT INR APTT D-Dimer Heparin Anti-Xa Level 0.76 H POC ABG pH POC ABG pCO2 65.7 H POC ABG pO2 63 L Sodium Potassium Chloride Carbon Dioxide BUN Creatinine Glucose POC Glucose 159 H Lactic Acid Calcium Phosphorus Total Bilirubin C-Reactive Protein NT-Pro-B Natriuret Pep Total Protein Albumin Urine WBC (Auto) Urine Creatinine 08/04/18 08/04/18 08/04/18 09:12 15:38 18:20 WBC RBC Hgb Hct MCV MCH MCHC RDW Plt Count Lymph % (Auto) [place] % (Auto) Lymph # [place] # Seg Neutrophils % Seg Neuts % (Manual) Lymphocytes % (Manual) Monocytes % (Manual) Nucleated RBC % Seg Neutrophils # Seg Neutrophils # Man Lymphocytes # (Manual) Monocytes # (Manual) PT INR APTT D-Dimer Heparin Anti-Xa Level POC ABG pH POC ABG pCO2 POC ABG pO2 Sodium Potassium Chloride Carbon Dioxide BUN Creatinine Glucose POC Glucose 140 H 267 H 252 H Lactic Acid Calcium Phosphorus Total Bilirubin C-Reactive Protein NT-Pro-B Natriuret Pep Total Protein Albumin Urine WBC (Auto) Urine Creatinine 08/04/18 08/05/18 08/05/18 21:17 02:51 04:36 WBC RBC Hgb Hct MCV MCH MCHC RDW Plt Count Lymph % (Auto) [place] % (Auto) Lymph # [place] # Seg Neutrophils % Seg Neuts % (Manual) Lymphocytes % (Manual) Monocytes % (Manual) Nucleated RBC % Seg Neutrophils # Seg Neutrophils # Man Lymphocytes # (Manual) Monocytes # (Manual) PT INR APTT D-Dimer Heparin Anti-Xa Level POC ABG pH POC ABG pCO2 POC ABG pO2 Sodium Potassium Chloride Carbon Dioxide BUN Creatinine Glucose POC Glucose 181 H 240 H 255 H Lactic Acid Calcium Phosphorus Total Bilirubin C-Reactive Protein NT-Pro-B Natriuret Pep Total Protein Albumin Urine WBC (Auto) Urine Creatinine 08/05/18 08/05/18 08/05/18 04:55 10:21 12:39 WBC 21.8 H RBC 3.18 L Hgb 10.3 L Hct 32.6 L MCV 103 H MCH 33 H MCHC RDW 16.3 H Plt Count Lymph % (Auto) [place] % (Auto) Lymph # [place] # Seg Neutrophils % Seg Neuts % (Manual) 88.0 H Lymphocytes % (Manual) 4.0 L Monocytes % (Manual) Nucleated RBC % Seg Neutrophils # Seg Neutrophils # Man 19.2 H Lymphocytes # (Manual) 0.9 L Monocytes # (Manual) PT INR APTT D-Dimer Heparin Anti-Xa Level POC ABG pH 7.506 H POC ABG pCO2 56.0 H POC ABG pO2 63 L Sodium Potassium Chloride Carbon Dioxide BUN Creatinine Glucose POC Glucose 227 H Lactic Acid Calcium Phosphorus Total Bilirubin C-Reactive Protein NT-Pro-B Natriuret Pep Total Protein Albumin Urine WBC (Auto) Urine Creatinine 08/05/18 08/05/18 08/05/18 12:39 14:10 17:30 WBC RBC Hgb Hct MCV MCH MCHC RDW Plt Count Lymph % (Auto) [place] % (Auto) Lymph # [place] # Seg Neutrophils % Seg Neuts % (Manual) Lymphocytes % (Manual) Monocytes % (Manual) Nucleated RBC % Seg Neutrophils # Seg Neutrophils # Man Lymphocytes # (Manual) Monocytes # (Manual) PT INR APTT D-Dimer Heparin Anti-Xa Level < 0.10 L POC ABG pH POC ABG pCO2 POC ABG pO2 Sodium Potassium Chloride 96.8 L Carbon Dioxide 38 H BUN 36 H Creatinine 0.6 L Glucose 218 H POC Glucose 221 H Lactic Acid Calcium Phosphorus Total Bilirubin C-Reactive Protein NT-Pro-B Natriuret Pep Total Protein Albumin Urine WBC (Auto) Urine Creatinine 08/05/18 08/05/18 08/06/18 18:32 23:32 02:26 WBC RBC Hgb Hct MCV MCH MCHC RDW Plt Count Lymph % (Auto) [place] % (Auto) Lymph # [place] # Seg Neutrophils % Seg Neuts % (Manual) Lymphocytes % (Manual) Monocytes % (Manual) Nucleated RBC % Seg Neutrophils # Seg Neutrophils # Man Lymphocytes # (Manual) Monocytes # (Manual) PT INR APTT D-Dimer Heparin Anti-Xa Level POC ABG pH POC ABG pCO2 POC ABG pO2 Sodium Potassium Chloride Carbon Dioxide BUN Creatinine Glucose POC Glucose 253 H 215 H 227 H Lactic Acid Calcium Phosphorus Total Bilirubin C-Reactive Protein NT-Pro-B Natriuret Pep Total Protein Albumin Urine WBC (Auto) Urine Creatinine 08/06/18 08/06/18 08/06/18 05:17 05:17 05:32 WBC 18.9 H RBC 3.06 L Hgb 10.2 L Hct 31.3 L MCV 102 H MCH 33 H MCHC RDW 16.1 H Plt Count Lymph % (Auto) [place] % (Auto) Lymph # [place] # Seg Neutrophils % Seg Neuts % (Manual) Lymphocytes % (Manual) Monocytes % (Manual) Nucleated RBC % Seg Neutrophils # Seg Neutrophils # Man Lymphocytes # (Manual) Monocytes # (Manual) PT INR APTT D-Dimer Heparin Anti-Xa Level POC ABG pH 7.468 H POC ABG pCO2 59.5 H POC ABG pO2 64 L Sodium Potassium Chloride Carbon Dioxide 37 H BUN 37 H Creatinine 0.5 L Glucose 226 H POC Glucose Lactic Acid Calcium Phosphorus Total Bilirubin C-Reactive Protein NT-Pro-B Natriuret Pep Total Protein Albumin Urine WBC (Auto) Urine Creatinine 08/06/18 08/06/18 08/06/18 10:11 15:03 17:48 WBC RBC Hgb Hct MCV MCH MCHC RDW Plt Count Lymph % (Auto) [place] % (Auto) Lymph # [place] # Seg Neutrophils % Seg Neuts % (Manual) Lymphocytes % (Manual) Monocytes % (Manual) Nucleated RBC % Seg Neutrophils # Seg Neutrophils # Man Lymphocytes # (Manual) Monocytes # (Manual) PT INR APTT D-Dimer Heparin Anti-Xa Level POC ABG pH POC ABG pCO2 POC ABG pO2 Sodium Potassium Chloride Carbon Dioxide BUN Creatinine Glucose POC Glucose 207 H 229 H 188 H Lactic Acid Calcium Phosphorus Total Bilirubin C-Reactive Protein NT-Pro-B Natriuret Pep Total Protein Albumin Urine WBC (Auto) Urine Creatinine 08/06/18 08/07/18 08/07/18 22:53 01:55 05:30 WBC RBC Hgb Hct MCV MCH MCHC RDW Plt Count Lymph % (Auto) [place] % (Auto) Lymph # [place] # Seg Neutrophils % Seg Neuts % (Manual) Lymphocytes % (Manual) Monocytes % (Manual) Nucleated RBC % Seg Neutrophils # Seg Neutrophils # Man Lymphocytes # (Manual) Monocytes # (Manual) PT INR APTT D-Dimer Heparin Anti-Xa Level POC ABG pH POC ABG pCO2 69.6 H POC ABG pO2 64 L Sodium Potassium Chloride Carbon Dioxide BUN Creatinine Glucose POC Glucose 146 H 143 H Lactic Acid Calcium Phosphorus Total Bilirubin C-Reactive Protein NT-Pro-B Natriuret Pep Total Protein Albumin Urine WBC (Auto) Urine Creatinine 08/07/18 08/07/18 08/07/18 09:59 14:16 15:08 WBC RBC Hgb 10.3 L Hct 32.2 L MCV MCH MCHC RDW Plt Count Lymph % (Auto) [place] % (Auto) Lymph # [place] # Seg Neutrophils % Seg Neuts % (Manual) Lymphocytes % (Manual) Monocytes % (Manual) Nucleated RBC % Seg Neutrophils # Seg Neutrophils # Man Lymphocytes # (Manual) Monocytes # (Manual) PT INR APTT D-Dimer Heparin Anti-Xa Level POC ABG pH POC ABG pCO2 POC ABG pO2 Sodium Potassium Chloride Carbon Dioxide BUN Creatinine Glucose POC Glucose 188 H 223 H Lactic Acid Calcium Phosphorus Total Bilirubin C-Reactive Protein NT-Pro-B Natriuret Pep Total Protein Albumin Urine WBC (Auto) Urine Creatinine 08/07/18 08/07/18 08/07/18 15:08 17:39 22:04 WBC RBC Hgb Hct MCV MCH MCHC RDW Plt Count Lymph % (Auto) [place] % (Auto) Lymph # [place] # Seg Neutrophils % Seg Neuts % (Manual) Lymphocytes % (Manual) Monocytes % (Manual) Nucleated RBC % Seg Neutrophils # Seg Neutrophils # Man Lymphocytes # (Manual) Monocytes # (Manual) PT INR APTT 23.2 L D-Dimer Heparin Anti-Xa Level POC ABG pH POC ABG pCO2 POC ABG pO2 Sodium Potassium Chloride Carbon Dioxide BUN Creatinine Glucose POC Glucose 208 H 163 H Lactic Acid Calcium Phosphorus Total Bilirubin C-Reactive Protein NT-Pro-B Natriuret Pep Total Protein Albumin Urine WBC (Auto) Urine Creatinine 08/07/18 08/08/18 08/08/18 22:30 01:57 02:09 WBC 14.6 H RBC 2.88 L Hgb 9.5 L Hct 29.9 L MCV 104 H MCH 33 H MCHC RDW 16.8 H Plt Count Lymph % (Auto) [place] % (Auto) Lymph # [place] # Seg Neutrophils % Seg Neuts % (Manual) 73.0 H Lymphocytes % (Manual) 9.0 L Monocytes % (Manual) 10.0 H Nucleated RBC % Seg Neutrophils # Seg Neutrophils # Man 10.7 H Lymphocytes # (Manual) Monocytes # (Manual) 1.5 H PT INR APTT D-Dimer Heparin Anti-Xa Level 0.25 L POC ABG pH POC ABG pCO2 POC ABG pO2 Sodium Potassium Chloride Carbon Dioxide BUN Creatinine Glucose POC Glucose 120 H Lactic Acid Calcium Phosphorus Total Bilirubin C-Reactive Protein NT-Pro-B Natriuret Pep Total Protein Albumin Urine WBC (Auto) Urine Creatinine 08/08/18 08/08/18 08/08/18 02:09 04:58 05:19 WBC RBC Hgb Hct MCV MCH MCHC RDW Plt Count Lymph % (Auto) [place] % (Auto) Lymph # [place] # Seg Neutrophils % Seg Neuts % (Manual) Lymphocytes % (Manual) Monocytes % (Manual) Nucleated RBC % Seg Neutrophils # Seg Neutrophils # Man Lymphocytes # (Manual) Monocytes # (Manual) PT INR APTT D-Dimer Heparin Anti-Xa Level POC ABG pH 7.461 H POC ABG pCO2 57.3 H POC ABG pO2 62 L Sodium Potassium Chloride Carbon Dioxide 39 H BUN 29 H Creatinine 0.5 L Glucose 124 H POC Glucose 139 H Lactic Acid Calcium Phosphorus Total Bilirubin C-Reactive Protein NT-Pro-B Natriuret Pep Total Protein Albumin Urine WBC (Auto) Urine Creatinine 08/08/18 08/08/18 08/08/18 10:22 14:52 16:12 WBC RBC Hgb Hct MCV MCH MCHC RDW Plt Count Lymph % (Auto) [place] % (Auto) Lymph # [place] # Seg Neutrophils % Seg Neuts % (Manual) Lymphocytes % (Manual) Monocytes % (Manual) Nucleated RBC % Seg Neutrophils # Seg Neutrophils # Man Lymphocytes # (Manual) Monocytes # (Manual) PT INR APTT D-Dimer Heparin Anti-Xa Level POC ABG pH POC ABG pCO2 POC ABG pO2 Sodium Potassium Chloride Carbon Dioxide BUN Creatinine Glucose POC Glucose 169 H 149 H 136 H Lactic Acid Calcium Phosphorus Total Bilirubin C-Reactive Protein NT-Pro-B Natriuret Pep Total Protein Albumin Urine WBC (Auto) Urine Creatinine 08/09/18 08/09/18 08/09/18 02:26 03:52 03:52 WBC 15.9 H RBC 2.87 L Hgb 9.6 L Hct 30.7 L MCV 107 H MCH 34 H MCHC 31 L RDW 17.8 H Plt Count Lymph % (Auto) 3.9 L [place] % (Auto) 8.1 H Lymph # 0.6 L [place] # 1.3 H Seg Neutrophils % 87.1 H Seg Neuts % (Manual) Lymphocytes % (Manual) Monocytes % (Manual) Nucleated RBC % Seg Neutrophils # 13.9 H Seg Neutrophils # Man Lymphocytes # (Manual) Monocytes # (Manual) PT INR APTT D-Dimer Heparin Anti-Xa Level 0.25 L POC ABG pH POC ABG pCO2 POC ABG pO2 Sodium Potassium Chloride Carbon Dioxide BUN Creatinine Glucose POC Glucose 126 H Lactic Acid Calcium Phosphorus Total Bilirubin C-Reactive Protein NT-Pro-B Natriuret Pep Total Protein Albumin Urine WBC (Auto) Urine Creatinine 08/09/18 08/09/18 08/09/18 03:52 05:34 06:48 WBC RBC Hgb Hct MCV MCH MCHC RDW Plt Count Lymph % (Auto) [place] % (Auto) Lymph # [place] # Seg Neutrophils % Seg Neuts % (Manual) Lymphocytes % (Manual) Monocytes % (Manual) Nucleated RBC % Seg Neutrophils # Seg Neutrophils # Man Lymphocytes # (Manual) Monocytes # (Manual) PT INR APTT D-Dimer Heparin Anti-Xa Level POC ABG pH POC ABG pCO2 57.5 H POC ABG pO2 58 L Sodium Potassium Chloride Carbon Dioxide 39 H BUN 26 H Creatinine 0.5 L Glucose 128 H POC Glucose 171 H Lactic Acid Calcium Phosphorus Total Bilirubin C-Reactive Protein NT-Pro-B Natriuret Pep Total Protein Albumin Urine WBC (Auto) Urine Creatinine 08/09/18 08/09/18 08/09/18 09:28 09:36 13:44 WBC RBC Hgb Hct MCV MCH MCHC RDW Plt Count Lymph % (Auto) [place] % (Auto) Lymph # [place] # Seg Neutrophils % Seg Neuts % (Manual) Lymphocytes % (Manual) Monocytes % (Manual) Nucleated RBC % Seg Neutrophils # Seg Neutrophils # Man Lymphocytes # (Manual) Monocytes # (Manual) PT INR APTT D-Dimer Heparin Anti-Xa Level 0.26 L POC ABG pH POC ABG pCO2 POC ABG pO2 Sodium Potassium Chloride Carbon Dioxide BUN Creatinine Glucose POC Glucose 183 H 184 H Lactic Acid Calcium Phosphorus Total Bilirubin C-Reactive Protein NT-Pro-B Natriuret Pep Total Protein Albumin Urine WBC (Auto) Urine Creatinine 08/09/18 08/10/18 08/10/18 17:55 04:49 05:20 WBC RBC Hgb Hct MCV MCH MCHC RDW Plt Count Lymph % (Auto) [place] % (Auto) Lymph # [place] # Seg Neutrophils % Seg Neuts % (Manual) Lymphocytes % (Manual) Monocytes % (Manual) Nucleated RBC % Seg Neutrophils # Seg Neutrophils # Man Lymphocytes # (Manual) Monocytes # (Manual) PT INR APTT D-Dimer Heparin Anti-Xa Level POC ABG pH POC ABG pCO2 59.9 H POC ABG pO2 59 L Sodium Potassium Chloride Carbon Dioxide BUN Creatinine Glucose POC Glucose 148 H 59 L Lactic Acid Calcium Phosphorus Total Bilirubin C-Reactive Protein NT-Pro-B Natriuret Pep Total Protein Albumin Urine WBC (Auto) Urine Creatinine 08/10/18 08/10/18 08/10/18 05:53 17:12 21:17 WBC RBC Hgb Hct MCV MCH MCHC RDW Plt Count Lymph % (Auto) [place] % (Auto) Lymph # [place] # Seg Neutrophils % Seg Neuts % (Manual) Lymphocytes % (Manual) Monocytes % (Manual) Nucleated RBC % Seg Neutrophils # Seg Neutrophils # Man Lymphocytes # (Manual) Monocytes # (Manual) PT INR APTT D-Dimer Heparin Anti-Xa Level POC ABG pH POC ABG pCO2 POC ABG pO2 Sodium Potassium Chloride Carbon Dioxide BUN Creatinine Glucose POC Glucose 128 H 110 H 109 H Lactic Acid Calcium Phosphorus Total Bilirubin C-Reactive Protein NT-Pro-B Natriuret Pep Total Protein Albumin Urine WBC (Auto) Urine Creatinine 08/11/18 08/11/18 08/11/18 00:54 02:28 04:17 WBC RBC Hgb 7.8 L Hct 24.1 L D MCV MCH MCHC RDW Plt Count Lymph % (Auto) [place] % (Auto) Lymph # [place] # Seg Neutrophils % Seg Neuts % (Manual) Lymphocytes % (Manual) Monocytes % (Manual) Nucleated RBC % Seg Neutrophils # Seg Neutrophils # Man Lymphocytes # (Manual) Monocytes # (Manual) PT INR APTT D-Dimer Heparin Anti-Xa Level 0.19 L POC ABG pH POC ABG pCO2 POC ABG pO2 Sodium Potassium Chloride Carbon Dioxide BUN Creatinine Glucose POC Glucose 124 H Lactic Acid Calcium Phosphorus Total Bilirubin C-Reactive Protein NT-Pro-B Natriuret Pep Total Protein Albumin Urine WBC (Auto) Urine Creatinine 08/11/18 08/11/18 08/11/18 05:10 07:42 10:27 WBC RBC Hgb Hct MCV MCH MCHC RDW Plt Count Lymph % (Auto) [place] % (Auto) Lymph # [place] # Seg Neutrophils % Seg Neuts % (Manual) Lymphocytes % (Manual) Monocytes % (Manual) Nucleated RBC % Seg Neutrophils # Seg Neutrophils # Man Lymphocytes # (Manual) Monocytes # (Manual) PT INR APTT D-Dimer Heparin Anti-Xa Level 0.20 L POC ABG pH POC ABG pCO2 POC ABG pO2 Sodium Potassium Chloride Carbon Dioxide BUN Creatinine Glucose POC Glucose 150 H 156 H Lactic Acid Calcium Phosphorus Total Bilirubin C-Reactive Protein NT-Pro-B Natriuret Pep Total Protein Albumin Urine WBC (Auto) Urine Creatinine 08/11/18 08/11/18 08/11/18 13:54 15:06 18:13 WBC RBC Hgb Hct MCV MCH MCHC RDW Plt Count Lymph % (Auto) [place] % (Auto) Lymph # [place] # Seg Neutrophils % Seg Neuts % (Manual) Lymphocytes % (Manual) Monocytes % (Manual) Nucleated RBC % Seg Neutrophils # Seg Neutrophils # Man Lymphocytes # (Manual) Monocytes # (Manual) PT INR APTT D-Dimer Heparin Anti-Xa Level POC ABG pH 7.471 H POC ABG pCO2 45.5 H POC ABG pO2 79 L Sodium Potassium Chloride Carbon Dioxide BUN Creatinine Glucose POC Glucose 177 H 143 H Lactic Acid Calcium Phosphorus Total Bilirubin C-Reactive Protein NT-Pro-B Natriuret Pep Total Protein Albumin Urine WBC (Auto) Urine Creatinine 08/11/18 08/11/18 08/11/18 18:33 21:22 Unknown WBC RBC Hgb Hct MCV MCH MCHC RDW Plt Count Lymph % (Auto) [place] % (Auto) Lymph # [place] # Seg Neutrophils % Seg Neuts % (Manual) Lymphocytes % (Manual) Monocytes % (Manual) Nucleated RBC % Seg Neutrophils # Seg Neutrophils # Man Lymphocytes # (Manual) Monocytes # (Manual) PT INR APTT D-Dimer Heparin Anti-Xa Level 0.29 L POC ABG pH POC ABG pCO2 POC ABG pO2 Sodium 136 L Potassium Chloride 96.5 L Carbon Dioxide 32 H D BUN Creatinine 0.5 L Glucose 186 H POC Glucose 151 H Lactic Acid Calcium Phosphorus Total Bilirubin C-Reactive Protein NT-Pro-B Natriuret Pep Total Protein Albumin Urine WBC (Auto) Urine Creatinine 08/11/18 08/12/18 08/12/18 Unknown 02:09 05:29 WBC 12.1 H RBC 2.50 L Hgb 8.2 L Hct 25.7 L MCV 103 H MCH 33 H MCHC RDW 17.0 H Plt Count Lymph % (Auto) 5.1 L [place] % (Auto) 9.5 H Lymph # 0.6 L [place] # 1.2 H Seg Neutrophils % 84.8 H Seg Neuts % (Manual) Lymphocytes % (Manual) Monocytes % (Manual) Nucleated RBC % Seg Neutrophils # 10.3 H Seg Neutrophils # Man Lymphocytes # (Manual) Monocytes # (Manual) PT INR APTT D-Dimer Heparin Anti-Xa Level POC ABG pH POC ABG pCO2 POC ABG pO2 Sodium Potassium Chloride Carbon Dioxide BUN Creatinine Glucose POC Glucose 159 H 136 H Lactic Acid Calcium Phosphorus Total Bilirubin C-Reactive Protein NT-Pro-B Natriuret Pep Total Protein Albumin Urine WBC (Auto) Urine Creatinine 08/12/18 08/12/18 08/12/18 07:33 09:59 13:59 WBC RBC Hgb Hct MCV MCH MCHC RDW Plt Count Lymph % (Auto) [place] % (Auto) Lymph # [place] # Seg Neutrophils % Seg Neuts % (Manual) Lymphocytes % (Manual) Monocytes % (Manual) Nucleated RBC % Seg Neutrophils # Seg Neutrophils # Man Lymphocytes # (Manual) Monocytes # (Manual) PT INR APTT D-Dimer Heparin Anti-Xa Level POC ABG pH POC ABG pCO2 POC ABG pO2 Sodium Potassium Chloride Carbon Dioxide BUN Creatinine Glucose POC Glucose 138 H 157 H 167 H Lactic Acid Calcium Phosphorus Total Bilirubin C-Reactive Protein NT-Pro-B Natriuret Pep Total Protein Albumin Urine WBC (Auto) Urine Creatinine 08/12/18 08/12/18 08/12/18 14:31 14:56 17:39 WBC RBC Hgb Hct MCV MCH MCHC RDW Plt Count Lymph % (Auto) [place] % (Auto) Lymph # [place] # Seg Neutrophils % Seg Neuts % (Manual) Lymphocytes % (Manual) Monocytes % (Manual) Nucleated RBC % Seg Neutrophils # Seg Neutrophils # Man Lymphocytes # (Manual) Monocytes # (Manual) PT INR APTT D-Dimer Heparin Anti-Xa Level 1.18 H POC ABG pH 7.466 H POC ABG pCO2 POC ABG pO2 58 L Sodium Potassium Chloride Carbon Dioxide BUN Creatinine Glucose POC Glucose 168 H Lactic Acid Calcium Phosphorus Total Bilirubin C-Reactive Protein NT-Pro-B Natriuret Pep Total Protein Albumin Urine WBC (Auto) Urine Creatinine 08/12/18 08/13/18 08/13/18 21:38 02:17 05:20 WBC RBC Hgb 8.0 L Hct 24.5 L MCV MCH MCHC RDW Plt Count Lymph % (Auto) [place] % (Auto) Lymph # [place] # Seg Neutrophils % Seg Neuts % (Manual) Lymphocytes % (Manual) Monocytes % (Manual) Nucleated RBC % Seg Neutrophils # Seg Neutrophils # Man Lymphocytes # (Manual) Monocytes # (Manual) PT INR APTT D-Dimer Heparin Anti-Xa Level POC ABG pH POC ABG pCO2 POC ABG pO2 Sodium Potassium Chloride Carbon Dioxide BUN Creatinine Glucose POC Glucose 168 H 157 H Lactic Acid Calcium Phosphorus Total Bilirubin C-Reactive Protein NT-Pro-B Natriuret Pep Total Protein Albumin Urine WBC (Auto) Urine Creatinine 08/13/18 08/13/18 08/13/18 09:28 10:07 14:09 WBC RBC Hgb Hct MCV MCH MCHC RDW Plt Count Lymph % (Auto) [place] % (Auto) Lymph # [place] # Seg Neutrophils % Seg Neuts % (Manual) Lymphocytes % (Manual) Monocytes % (Manual) Nucleated RBC % Seg Neutrophils # Seg Neutrophils # Man Lymphocytes # (Manual) Monocytes # (Manual) PT INR APTT D-Dimer Heparin Anti-Xa Level POC ABG pH 7.453 H POC ABG pCO2 47.5 H POC ABG pO2 Sodium Potassium Chloride Carbon Dioxide BUN Creatinine Glucose POC Glucose 177 H 178 H Lactic Acid Calcium Phosphorus Total Bilirubin C-Reactive Protein NT-Pro-B Natriuret Pep Total Protein Albumin Urine WBC (Auto) Urine Creatinine 08/13/18 08/13/18 08/14/18 17:33 21:28 01:58 WBC RBC Hgb Hct MCV MCH MCHC RDW Plt Count Lymph % (Auto) [place] % (Auto) Lymph # [place] # Seg Neutrophils % Seg Neuts % (Manual) Lymphocytes % (Manual) Monocytes % (Manual) Nucleated RBC % Seg Neutrophils # Seg Neutrophils # Man Lymphocytes # (Manual) Monocytes # (Manual) PT INR APTT D-Dimer Heparin Anti-Xa Level POC ABG pH POC ABG pCO2 POC ABG pO2 Sodium Potassium Chloride Carbon Dioxide BUN Creatinine Glucose POC Glucose 130 H 145 H 161 H Lactic Acid Calcium Phosphorus Total Bilirubin C-Reactive Protein NT-Pro-B Natriuret Pep Total Protein Albumin Urine WBC (Auto) Urine Creatinine 08/14/18 08/14/18 08/14/18 05:22 06:10 09:59 WBC RBC Hgb Hct MCV MCH MCHC RDW Plt Count Lymph % (Auto) [place] % (Auto) Lymph # [place] # Seg Neutrophils % Seg Neuts % (Manual) Lymphocytes % (Manual) Monocytes % (Manual) Nucleated RBC % Seg Neutrophils # Seg Neutrophils # Man Lymphocytes # (Manual) Monocytes # (Manual) PT INR APTT D-Dimer Heparin Anti-Xa Level POC ABG pH POC ABG pCO2 POC ABG pO2 Sodium Potassium Chloride Carbon Dioxide BUN Creatinine 0.5 L Glucose 125 H POC Glucose 117 H 107 H Lactic Acid Calcium Phosphorus Total Bilirubin C-Reactive Protein NT-Pro-B Natriuret Pep Total Protein Albumin Urine WBC (Auto) Urine Creatinine 08/14/18 08/14/18 08/14/18 14:04 17:49 21:27 WBC RBC Hgb Hct MCV MCH MCHC RDW Plt Count Lymph % (Auto) [place] % (Auto) Lymph # [place] # Seg Neutrophils % Seg Neuts % (Manual) Lymphocytes % (Manual) Monocytes % (Manual) Nucleated RBC % Seg Neutrophils # Seg Neutrophils # Man Lymphocytes # (Manual) Monocytes # (Manual) PT INR APTT D-Dimer Heparin Anti-Xa Level POC ABG pH POC ABG pCO2 POC ABG pO2 Sodium Potassium Chloride Carbon Dioxide BUN Creatinine Glucose POC Glucose 137 H 150 H 149 H Lactic Acid Calcium Phosphorus Total Bilirubin C-Reactive Protein NT-Pro-B Natriuret Pep Total Protein Albumin Urine WBC (Auto) Urine Creatinine 08/14/18 08/15/18 08/15/18 21:55 01:50 03:12 WBC 13.3 H RBC 2.79 L Hgb 9.3 L 8.4 L Hct 28.6 L 25.7 L MCV 102 H MCH 33 H MCHC RDW 16.6 H Plt Count Lymph % (Auto) [place] % (Auto) Lymph # [place] # Seg Neutrophils % Seg Neuts % (Manual) Lymphocytes % (Manual) Monocytes % (Manual) Nucleated RBC % Seg Neutrophils # Seg Neutrophils # Man Lymphocytes # (Manual) Monocytes # (Manual) PT INR APTT D-Dimer Heparin Anti-Xa Level POC ABG pH POC ABG pCO2 POC ABG pO2 Sodium Potassium Chloride Carbon Dioxide BUN Creatinine Glucose POC Glucose 186 H Lactic Acid Calcium Phosphorus Total Bilirubin C-Reactive Protein NT-Pro-B Natriuret Pep Total Protein Albumin Urine WBC (Auto) Urine Creatinine 08/15/18 08/15/18 08/15/18 09:55 11:45 13:47 WBC RBC 2.38 L Hgb 8.0 L Hct 24.5 L MCV 103 H MCH 34 H MCHC RDW 16.8 H Plt Count Lymph % (Auto) 4.9 L [place] % (Auto) Lymph # 0.5 L [place] # Seg Neutrophils % 88.1 H Seg Neuts % (Manual) Lymphocytes % (Manual) Monocytes % (Manual) Nucleated RBC % Seg Neutrophils # 9.6 H Seg Neutrophils # Man Lymphocytes # (Manual) Monocytes # (Manual) PT INR APTT D-Dimer Heparin Anti-Xa Level POC ABG pH POC ABG pCO2 POC ABG pO2 Sodium Potassium Chloride Carbon Dioxide BUN Creatinine Glucose POC Glucose 133 H 142 H Lactic Acid Calcium Phosphorus Total Bilirubin C-Reactive Protein NT-Pro-B Natriuret Pep Total Protein Albumin Urine WBC (Auto) Urine Creatinine 08/15/18 08/15/18 08/16/18 17:54 21:58 02:20 WBC RBC Hgb Hct MCV MCH MCHC RDW Plt Count Lymph % (Auto) [place] % (Auto) Lymph # [place] # Seg Neutrophils % Seg Neuts % (Manual) Lymphocytes % (Manual) Monocytes % (Manual) Nucleated RBC % Seg Neutrophils # Seg Neutrophils # Man Lymphocytes # (Manual) Monocytes # (Manual) PT INR APTT D-Dimer Heparin Anti-Xa Level POC ABG pH POC ABG pCO2 POC ABG pO2 Sodium Potassium Chloride Carbon Dioxide BUN Creatinine Glucose POC Glucose 131 H 157 H 108 H Lactic Acid Calcium Phosphorus Total Bilirubin C-Reactive Protein NT-Pro-B Natriuret Pep Total Protein Albumin Urine WBC (Auto) Urine Creatinine 08/16/18 08/16/18 08/16/18 05:16 10:20 10:23 WBC RBC Hgb Hct MCV MCH MCHC RDW Plt Count Lymph % (Auto) [place] % (Auto) Lymph # [place] # Seg Neutrophils % Seg Neuts % (Manual) Lymphocytes % (Manual) Monocytes % (Manual) Nucleated RBC % Seg Neutrophils # Seg Neutrophils # Man Lymphocytes # (Manual) Monocytes # (Manual) PT INR APTT D-Dimer Heparin Anti-Xa Level POC ABG pH POC ABG pCO2 POC ABG pO2 63 L Sodium Potassium Chloride Carbon Dioxide BUN Creatinine Glucose POC Glucose 115 H 146 H Lactic Acid Calcium Phosphorus Total Bilirubin C-Reactive Protein NT-Pro-B Natriuret Pep Total Protein Albumin Urine WBC (Auto) Urine Creatinine 08/16/18 08/16/18 08/16/18 11:06 14:05 18:04 WBC RBC 2.82 L Hgb 9.2 L Hct 28.8 L MCV 102 H MCH 33 H MCHC RDW 16.4 H Plt Count Lymph % (Auto) 3.8 L [place] % (Auto) Lymph # 0.4 L [place] # Seg Neutrophils % 89.5 H Seg Neuts % (Manual) Lymphocytes % (Manual) Monocytes % (Manual) Nucleated RBC % Seg Neutrophils # 9.1 H Seg Neutrophils # Man Lymphocytes # (Manual) Monocytes # (Manual) PT INR APTT D-Dimer Heparin Anti-Xa Level POC ABG pH POC ABG pCO2 POC ABG pO2 Sodium Potassium Chloride Carbon Dioxide BUN Creatinine Glucose POC Glucose 139 H 144 H Lactic Acid Calcium Phosphorus Total Bilirubin C-Reactive Protein NT-Pro-B Natriuret Pep Total Protein Albumin Urine WBC (Auto) Urine Creatinine 08/16/18 08/17/18 08/17/18 21:50 03:51 04:59 WBC RBC Hgb Hct MCV MCH MCHC RDW Plt Count Lymph % (Auto) [place] % (Auto) Lymph # [place] # Seg Neutrophils % Seg Neuts % (Manual) Lymphocytes % (Manual) Monocytes % (Manual) Nucleated RBC % Seg Neutrophils # Seg Neutrophils # Man Lymphocytes # (Manual) Monocytes # (Manual) PT INR APTT D-Dimer Heparin Anti-Xa Level POC ABG pH POC ABG pCO2 POC ABG pO2 Sodium Potassium Chloride Carbon Dioxide BUN Creatinine 0.5 L Glucose 134 H POC Glucose 147 H 135 H Lactic Acid Calcium Phosphorus Total Bilirubin C-Reactive Protein NT-Pro-B Natriuret Pep Total Protein Albumin Urine WBC (Auto) Urine Creatinine 08/17/18 08/17/18 08/17/18 12:07 18:04 21:38 WBC RBC Hgb Hct MCV MCH MCHC RDW Plt Count Lymph % (Auto) Cecil % (Auto) Lymph # Cecil # Seg Neutrophils % Seg Neuts % (Manual) Lymphocytes % (Manual) Monocytes % (Manual) Nucleated RBC % Seg Neutrophils # Seg Neutrophils # Man Lymphocytes # (Manual) Monocytes # (Manual) PT INR APTT D-Dimer Heparin Anti-Xa Level POC ABG pH POC ABG pCO2 55.6 H POC ABG pO2 65 L Sodium Potassium Chloride Carbon Dioxide BUN Creatinine Glucose POC Glucose 160 H 115 H Lactic Acid Calcium Phosphorus Total Bilirubin C-Reactive Protein NT-Pro-B Natriuret Pep Total Protein Albumin Urine WBC (Auto) Urine Creatinine 08/17/18 08/18/18 08/18/18 21:47 01:42 05:42 WBC RBC Hgb Hct MCV MCH MCHC RDW Plt Count Lymph % (Auto) Cecil % (Auto) Lymph # Cecil # Seg Neutrophils % Seg Neuts % (Manual) Lymphocytes % (Manual) Monocytes % (Manual) Nucleated RBC % Seg Neutrophils # Seg Neutrophils # Man Lymphocytes # (Manual) Monocytes # (Manual) PT INR APTT D-Dimer Heparin Anti-Xa Level POC ABG pH POC ABG pCO2 POC ABG pO2 Sodium Potassium Chloride Carbon Dioxide BUN Creatinine Glucose POC Glucose 110 H 124 H 127 H Lactic Acid Calcium Phosphorus Total Bilirubin C-Reactive Protein NT-Pro-B Natriuret Pep Total Protein Albumin Urine WBC (Auto) Urine Creatinine 08/18/18 08/18/18 08/18/18 09:51 14:37 21:37 WBC RBC Hgb Hct MCV MCH MCHC RDW Plt Count Lymph % (Auto) [place] % (Auto) Lymph # [place] # Seg Neutrophils % Seg Neuts % (Manual) Lymphocytes % (Manual) Monocytes % (Manual) Nucleated RBC % Seg Neutrophils # Seg Neutrophils # Man Lymphocytes # (Manual) Monocytes # (Manual) PT INR APTT D-Dimer Heparin Anti-Xa Level POC ABG pH POC ABG pCO2 POC ABG pO2 Sodium Potassium Chloride Carbon Dioxide BUN Creatinine Glucose POC Glucose 162 H 130 H 133 H Lactic Acid Calcium Phosphorus Total Bilirubin C-Reactive Protein NT-Pro-B Natriuret Pep Total Protein Albumin Urine WBC (Auto) Urine Creatinine 08/19/18 08/19/18 08/19/18 01:47 04:55 04:55 WBC RBC 2.86 L Hgb 9.4 L Hct 28.6 L MCV 100 H MCH 33 H MCHC RDW 16.6 H Plt Count Lymph % (Auto) [place] % (Auto) Lymph # [place] # Seg Neutrophils % Seg Neuts % (Manual) Lymphocytes % (Manual) Monocytes % (Manual) Nucleated RBC % Seg Neutrophils # Seg Neutrophils # Man Lymphocytes # (Manual) Monocytes # (Manual) PT INR APTT D-Dimer Heparin Anti-Xa Level POC ABG pH POC ABG pCO2 POC ABG pO2 Sodium Potassium Chloride 97.8 L Carbon Dioxide 32 H BUN Creatinine 0.4 L Glucose 116 H POC Glucose 136 H Lactic Acid Calcium Phosphorus Total Bilirubin C-Reactive Protein NT-Pro-B Natriuret Pep Total Protein Albumin Urine WBC (Auto) Urine Creatinine 08/19/18 08/19/18 08/19/18 05:16 05:41 11:49 WBC RBC Hgb Hct MCV MCH MCHC RDW Plt Count Lymph % (Auto) [place] % (Auto) Lymph # [place] # Seg Neutrophils % Seg Neuts % (Manual) Lymphocytes % (Manual) Monocytes % (Manual) Nucleated RBC % Seg Neutrophils # Seg Neutrophils # Man Lymphocytes # (Manual) Monocytes # (Manual) PT INR APTT D-Dimer Heparin Anti-Xa Level POC ABG pH POC ABG pCO2 57.5 H POC ABG pO2 65 L Sodium Potassium Chloride Carbon Dioxide BUN Creatinine Glucose POC Glucose 119 H 143 H Lactic Acid Calcium Phosphorus Total Bilirubin C-Reactive Protein NT-Pro-B Natriuret Pep Total Protein Albumin Urine WBC (Auto) Urine Creatinine 08/19/18 08/19/18 08/20/18 15:13 21:45 06:03 WBC RBC Hgb Hct MCV MCH MCHC RDW Plt Count Lymph % (Auto) [place] % (Auto) Lymph # [place] # Seg Neutrophils % Seg Neuts % (Manual) Lymphocytes % (Manual) Monocytes % (Manual) Nucleated RBC % Seg Neutrophils # Seg Neutrophils # Man Lymphocytes # (Manual) Monocytes # (Manual) PT INR APTT D-Dimer Heparin Anti-Xa Level POC ABG pH POC ABG pCO2 POC ABG pO2 Sodium Potassium Chloride Carbon Dioxide BUN Creatinine Glucose POC Glucose 155 H 127 H 160 H Lactic Acid Calcium Phosphorus Total Bilirubin C-Reactive Protein NT-Pro-B Natriuret Pep Total Protein Albumin Urine WBC (Auto) Urine Creatinine 08/20/18 08/20/18 08/21/18 12:00 22:10 05:32 WBC RBC Hgb Hct MCV MCH MCHC RDW Plt Count Lymph % (Auto) [place] % (Auto) Lymph # [place] # Seg Neutrophils % Seg Neuts % (Manual) Lymphocytes % (Manual) Monocytes % (Manual) Nucleated RBC % Seg Neutrophils # Seg Neutrophils # Man Lymphocytes # (Manual) Monocytes # (Manual) PT INR APTT D-Dimer Heparin Anti-Xa Level POC ABG pH POC ABG pCO2 POC ABG pO2 Sodium Potassium Chloride Carbon Dioxide BUN Creatinine Glucose POC Glucose 143 H 125 H 121 H Lactic Acid Calcium Phosphorus Total Bilirubin C-Reactive Protein NT-Pro-B Natriuret Pep Total Protein Albumin Urine WBC (Auto) Urine Creatinine 08/21/18 08/21/18 08/22/18 17:37 22:19 05:30 WBC RBC Hgb Hct MCV MCH MCHC RDW Plt Count Lymph % (Auto) [place] % (Auto) Lymph # [place] # Seg Neutrophils % Seg Neuts % (Manual) Lymphocytes % (Manual) Monocytes % (Manual) Nucleated RBC % Seg Neutrophils # Seg Neutrophils # Man Lymphocytes # (Manual) Monocytes # (Manual) PT INR APTT D-Dimer Heparin Anti-Xa Level POC ABG pH POC ABG pCO2 POC ABG pO2 Sodium Potassium Chloride Carbon Dioxide BUN Creatinine Glucose POC Glucose 126 H 129 H 147 H Lactic Acid Calcium Phosphorus Total Bilirubin C-Reactive Protein NT-Pro-B Natriuret Pep Total Protein Albumin Urine WBC (Auto) Urine Creatinine 08/22/18 08/22/18 08/23/18 16:22 21:31 04:37 WBC RBC Hgb Hct MCV MCH MCHC RDW Plt Count Lymph % (Auto) [place] % (Auto) Lymph # [place] # Seg Neutrophils % Seg Neuts % (Manual) Lymphocytes % (Manual) Monocytes % (Manual) Nucleated RBC % Seg Neutrophils # Seg Neutrophils # Man Lymphocytes # (Manual) Monocytes # (Manual) PT INR APTT D-Dimer Heparin Anti-Xa Level POC ABG pH POC ABG pCO2 POC ABG pO2 Sodium Potassium Chloride Carbon Dioxide BUN Creatinine 0.5 L Glucose 141 H POC Glucose 141 H 107 H Lactic Acid Calcium Phosphorus Total Bilirubin C-Reactive Protein NT-Pro-B Natriuret Pep Total Protein Albumin Urine WBC (Auto) Urine Creatinine 08/23/18 04:37 WBC RBC 2.94 L Hgb 9.7 L Hct 30.0 L MCV 102 H MCH 33 H MCHC RDW 17.0 H Plt Count 509 H Lymph % (Auto) [place] % (Auto) Lymph # [place] # Seg Neutrophils % Seg Neuts % (Manual) Lymphocytes % (Manual) Monocytes % (Manual) Nucleated RBC % Seg Neutrophils # Seg Neutrophils # Man Lymphocytes # (Manual) Monocytes # (Manual) PT INR APTT D-Dimer Heparin Anti-Xa Level POC ABG pH POC ABG pCO2 POC ABG pO2 Sodium Potassium Chloride Carbon Dioxide BUN Creatinine Glucose POC Glucose Lactic Acid Calcium Phosphorus Total Bilirubin C-Reactive Protein NT-Pro-B Natriuret Pep Total Protein Albumin Urine WBC (Auto) Urine Creatinine Allied health notes reviewed: nursing
--- NOTE | 2018-08-24 08:40 | XRay Report ---
AP CHEST: HISTORY: Followup on pneumonia There is slightly better aeration of both lungs since 08/15/18. Patchy infiltration in the right perihilar region and left lower lung have nearly resolved. Underlying chronic interstitial changes are stable. Pleural thickening at the right apex is stable. Heart size is within normal limits. The tracheostomy remains in good position. IMPRESSION: Near resolution of the bilateral lung opacities. Chronic findings as described above.
[2018-08-24] MEDS: BROVANA NEBU IH SCH ×2 (09:03→21:21)
[2018-08-24] MEDS: PULMICORT IH SCH ×2 (09:03→21:21)
[2018-08-24] MEDS: VITAMIN B-12 PO SCH (09:56)
[2018-08-24] MEDS: CORDARONE PO SCH ×2 (09:56→22:46)
[2018-08-24] MEDS: PRAVACHOL PO SCH (09:56)
[2018-08-24] MEDS: SODIUM CHLORIDE FLUSH SYRINGE 10 ML IV SCH ×2 (09:57→22:47)
[2018-08-24] MEDS: ELIQUIS PO SCH ×2 (09:57→22:46)
[2018-08-24] MEDS: PEPCID PO SCH ×2 (09:57→22:46)
[2018-08-24] MEDS: TYLENOL FEEDTUBE PRN ×2 (14:18→23:50)
--- NOTE | 2018-08-24 15:19 | Progress Note ---
Assessment and Plan Cultures: 07/27/2018 tracheal aspirate culture: Pseudomonas aeruginosa, MSSA 07/28/2018 blood culture: 4 out of 4 bottles positive for Streptococcus anginosus 07/28/2018 fungal blood culture: In progress but no growth thus far 07/29/2018 urine culture: No growth 08/01/2018 blood culture: negative thus far 08/11/2018 blood culture: in process 08/11/2018 urine culture: no growth 08/15/2018 sputum culture: MSSA, E.coli, Pseudomonas Assessment: 73-year-old male with COPD, peripheral vascular disease, hypertension, hyperlipidemia, seizure disorder admitted with: 1) New sepsis: resolved; secondary to pneumonia. Final sputum cultures, growing E.coli, Pseudomonas and MSSA, all covered by Cefepime. 2) Initial Streptococcus anginosus bacteremia: 4/4 bottles, REGAN was negative. completed treatment. 3) Acute respiratory failure secondary to congestive heart failure and pneumonia: now s/p trach and PEG. 4) CARLEE, present on admission, now resolved. 5) Hematuria on heparin/Uretral striture: s/p cysto and zuniga placement on 08/08/2018 Recs: - Monitor off abx I am signing off MD [facility] C: [phone] O: [phone] F: [phone] Subjective Date of service: 08/24/18 Principal diagnosis: Acute hypoxemic respiratory failure; A-fib with RVR; Possible CHF; H/O DVT Interval history: Patient reports great, alert, following commands on trach collar. No fever reported. Objective - Exam Narrative Exam: Constitutional: alert in NAD pleasant Head, Ears, Nose: Normocephalic, atraumatic. External ears, nose normal Eyes: Conjunctivae/corneas clear. No icterus. No ptosis. Neck: trach + thin secretions Oral:limited Cardiovascular: RRR Respiratory: dileep scattered rhonchi GI: Soft, bowel sounds normal. No peritoneal signs. PEG tube + Musculoskeletal: no pedal edema, no cyanosis. Skin: No rash or abscess Hem/Lymphatic: No palpable cervical or supraclavicular nodes. No lymphangitis Psych: calm Neurological: awake, able to communicate, follow commands +Zuniga - Constitutional Vitals: Vital Signs Temp Pulse Resp BP Pulse Ox 98.4 F 75 14 134/64 93 08/24/18 12:00 08/24/18 15:00 08/24/18 15:00 08/24/18 15:00 08/24/18 15:00 Temperature -Last 24 Hours Temperature 98.4 F Temperature 97.6 F Temperature 97.8 F Temperature 98.1 F Temperature 98 F Temperature 98.5 F - Labs CBC & Chem 7: 08/23/18 04:37 08/23/18 04:37 Labs: Abnormal lab results 08/24/18 Range/Units 05:31 POC Glucose 136 H (70-105)
--- NOTE | 2018-08-24 16:17 | Progress Note ---
Assessment and Plan Assessment and plan: Continue T piece, wean FiO2 as tolerated -ID input appreciated, monitor off antibiotics patient is 73 yo with H/O COPD, PVD, HTN, HLD, Seizure Disorder, Skin Cancer presented with chest pain, shortness of breath. -He presented in A. fib with RVR, he was medically managed and transitioned from IV to oral medications -The patient suffered respiratory failure for which she was on the ventilator wh ich required prolonged weaning, therefore trach and PEG was placed on 08/11/19. The patient is currently on T piece with FiO2 which is being weaned currently 35% -The patient completed a course of antibiotics for treatment of bacteremia due to Streptococcus anginosus -He was medically treated for acute renal failure with IV fluids and that has not resolved -The patient also suffers a urethral stricture with obstruction and therefore we received a Osborne cath that was placed by urology which is not to be removed -He was medically treated for COPD exacerbation, and medications were optimized for his chronic conditions -The patient's is currently awaiting SNIF placement Diagnosis Septicemia Streptococcus anginous is bacteremia Left lower lobe pneumonia Acute hypoxia was a failure on mechanical ventilator greater than 96 hours Atrial fibrillation with RVR Acute renal failure due to vasomotor nephropathy, Hematuria/Urethral stricture. COPD exacerbation. Hypertension. Hyperlipidemia. Peripheral vascular disease. Disposition.Plan is for snf placement, primary insurance does not cover snf, looking into secondary insurance History Interval history: Review of systems Constitutional: No fevers, no malaise, no joint pains CVS: No chest pain, no orthopnea, no dyspnea on exertion, no pedal edema GI: No abdominal pain, no diarrhea, no vomiting, no constipation Respiratory: No shortness of breath, no wheezing, no coughing Hospitalist Physical - Physical exam Narrative exam: General.: Appears well, no distress, nontoxic HEENT: Tracheostomy in place Neck: supple Cardiac: S1-S2 heard Lungs: clear to auscultation bilaterally Abdomen: soft , nontender, nondistended, bowel sounds positive Extremities: no edema clubbing or cyanosis Skin: no rash or lesions Neurologic: no gross focal deficits Psych: calm, and cooperative - Constitutional Vitals: Temp Pulse Resp BP Pulse Ox 98.4 F 75 14 134/64 93 08/24/18 12:00 08/24/18 15:00 08/24/18 15:00 08/24/18 15:00 08/24/18 15:00 General appearance: Present: other (intubated on mechanical ventilation) Results - Labs CBC & Chem 7: 08/23/18 04:37 08/23/18 04:37 Labs: Laboratory Last Values WBC 9.3 K/mm3 (4.5-11.0) 08/23/18 04:37 RBC 2.94 M/mm3 (3.65-5.03) L 08/23/18 04:37 Hgb 9.7 gm/dl (11.8-15.2) L 08/23/18 04:37 Hct 30.0 % (35.5-45.6) L 08/23/18 04:37 MCV 102 fl (84-94) H 08/23/18 04:37 MCH 33 pg (28-32) H 08/23/18 04:37 MCHC 33 % (32-34) 08/23/18 04:37 RDW 17.0 % (13.2-15.2) H 08/23/18 04:37 Plt Count 509 K/mm3 (140-440) H 08/23/18 04:37 Lymph % (Auto) 3.8 % (13.4-35.0) L 08/16/18 11:06 [place] % (Auto) 5.7 % (0.0-7.3) 08/16/18 11:06 Eos % (Auto) 0.6 % (0.0-4.3) 08/16/18 11:06 Baso % (Auto) 0.4 % (0.0-1.8) 08/16/18 11:06 Lymph # 0.4 K/mm3 (1.2-5.4) L 08/16/18 11:06 [place] # 0.6 K/mm3 (0.0-0.8) 08/16/18 11:06 Eos # 0.1 K/mm3 (0.0-0.4) 08/16/18 11:06 Baso # 0.0 K/mm3 (0.0-0.1) 08/16/18 11:06 Add Manual Diff Complete 08/08/18 02:09 Total Counted 100 08/08/18 02:09 Seg Neutrophils % 89.5 % (40.0-70.0) H 08/16/18 11:06 Seg Neuts % (Manual) 73.0 % (40.0-70.0) H 08/08/18 02:09 Band Neutrophils % 5.0 % 08/08/18 02:09 Lymphocytes % (Manual) 9.0 % (13.4-35.0) L 08/08/18 02:09 Reactive Lymphs % (Man) 0 % 08/08/18 02:09 Monocytes % (Manual) 10.0 % (0.0-7.3) H 08/08/18 02:09 Eosinophils % (Manual) 0 % (0.0-4.3) 08/08/18 02:09 Basophils % (Manual) 0 % (0.0-1.8) 08/08/18 02:09 Metamyelocytes % 3.0 % 08/08/18 02:09 Myelocytes % 0 % 08/08/18 02:09 Promyelocytes % 0 % 08/08/18 02:09 Blast Cells % 0 % 08/08/18 02:09 Nucleated RBC % Not Reportable 08/08/18 02:09 Seg Neutrophils # 9.1 K/mm3 (1.8-7.7) H 08/16/18 11:06 Seg Neutrophils # Man 10.7 K/mm3 (1.8-7.7) H 08/08/18 02:09 Band Neutrophils # 0.7 K/mm3 08/08/18 02:09 Lymphocytes # (Manual) 1.3 K/mm3 (1.2-5.4) 08/08/18 02:09 Abs React Lymphs (Man) 0.0 K/mm3 08/08/18 02:09 Monocytes # (Manual) 1.5 K/mm3 (0.0-0.8) H 08/08/18 02:09 Eosinophils # (Manual) 0.0 K/mm3 (0.0-0.4) 08/08/18 02:09 Basophils # (Manual) 0.0 K/mm3 (0.0-0.1) 08/08/18 02:09 Metamyelocytes # 0.4 K/mm3 08/08/18 02:09 Myelocytes # 0.0 K/mm3 08/08/18 02:09 Promyelocytes # 0.0 K/mm3 08/08/18 02:09 Blast Cells # 0.0 K/mm3 08/08/18 02:09 Pathologist Review 07/28/18 06:01 WBC Morphology Not Reportable 08/08/18 02:09 Hypersegmented Neuts Not Reportable 08/08/18 02:09 Hyposegmented Neuts Not Reportable 08/08/18 02:09 Hypogranular Neuts Not Reportable 08/08/18 02:09 Smudge Cells Not Reportable 08/08/18 02:09 Toxic Granulation Not Reportable 08/08/18 02:09 Toxic Vacuolation Not Reportable 08/08/18 02:09 Dohle Bodies Not Reportable 08/08/18 02:09 Pelger-Huet Anomaly Not Reportable 08/08/18 02:09 Janiya Rods Not Reportable 08/08/18 02:09 Platelet Estimate Appears normal 08/08/18 02:09 Clumped Platelets Not Reportable 08/08/18 02:09 Plt Clumps, EDTA Not Reportable 08/08/18 02:09 Large Platelets Not Reportable 08/08/18 02:09 Giant Platelets Not Reportable 08/08/18 02:09 Platelet Satelliting Not Reportable 08/08/18 02:09 Plt Morphology Comment Not Reportable 08/08/18 02:09 RBC Morphology Not Reportable 08/08/18 02:09 Dimorphic RBCs Not Reportable 08/08/18 02:09 Polychromasia Not Reportable 08/08/18 02:09 Hypochromasia Few 08/08/18 02:09 Poikilocytosis Not Reportable 08/08/18 02:09 Anisocytosis 1+ 08/08/18 02:09 Microcytosis Not Reportable 08/08/18 02:09 Macrocytosis Not Reportable 08/08/18 02:09 Spherocytes Not Reportable 08/08/18 02:09 Pappenheimer Bodies Not Reportable 08/08/18 02:09 Sickle Cells Not Reportable 08/08/18 02:09 Target Cells Not Reportable 08/08/18 02:09 Tear Drop Cells Not Reportable 08/08/18 02:09 Ovalocytes Not Reportable 08/08/18 02:09 Stomatocytes Few 08/08/18 02:09 Helmet Cells Not Reportable 08/08/18 02:09 Lr-Parmelee Bodies Not Reportable 08/08/18 02:09 Mandan Rings Not Reportable 08/08/18 02:09 Armando Cells Not Reportable 08/08/18 02:09 Bite Cells Not Reportable 08/08/18 02:09 Crenated Cell Not Reportable 08/08/18 02:09 Elliptocytes Not Reportable 08/08/18 02:09 Acanthocytes (Spur) Not Reportable 08/08/18 02:09 Rouleaux Not Reportable 08/08/18 02:09 Hemoglobin C Crystals Not Reportable 08/08/18 02:09 Schistocytes Not Reportable 08/08/18 02:09 Malaria parasites Not Reportable 08/08/18 02:09 Jigar Bodies Not Reportable 08/08/18 02:09 Hem Pathologist Commnt No 08/08/18 02:09 PT 13.4 Sec. (12.2-14.9) 08/07/18 15:08 INR 0.98 (0.87-1.13) 08/07/18 15:08 APTT 23.2 Sec. (24.2-36.6) L 08/07/18 15:08 D-Dimer 798.17 ng/mlDDU (0-234) H 07/27/18 15:52 Heparin Anti-Xa Level 1.18 U.I./ml (0.3-0.7) H 08/12/18 14:56 POC ABG pH 7.370 (7.35-7.45) 08/19/18 05:16 POC ABG pCO2 57.5 (35-45) H 08/19/18 05:16 POC ABG pO2 65 (80-105) L 08/19/18 05:16 POC ABG HCO3 33.2 08/19/18 05:16 POC ABG Total CO2 35 08/19/18 05:16 POC ABG O2 Sat 91 08/19/18 05:16 POC ABG Base Excess 8 08/19/18 05:16 FiO2 40 % 08/19/18 05:16 Sodium 138 mmol/L (137-145) 08/23/18 04:37 Potassium 4.0 mmol/L (3.6-5.0) 08/23/18 04:37 Chloride 99.0 mmol/L (98-107) 08/23/18 04:37 Carbon Dioxide 30 mmol/L (22-30) 08/23/18 04:37 Anion Gap 13 mmol/L 08/23/18 04:37 BUN 16 mg/dL (9-20) 08/23/18 04:37 Creatinine 0.5 mg/dL (0.8-1.5) L 08/23/18 04:37 Estimated GFR > 60 ml/min 08/23/18 04:37 BUN/Creatinine Ratio 32 % 08/23/18 04:37 Glucose 141 mg/dL (75-100) H 08/23/18 04:37 POC Glucose 136 (70-105) H 08/24/18 05:31 Lactic Acid 1.30 mmol/L (0.7-2.0) 08/03/18 16:48 Calcium 8.8 mg/dL (8.4-10.2) 08/23/18 04:37 Phosphorus 3.30 mg/dL (2.5-4.5) 08/19/18 04:55 Magnesium 2.30 mg/dL (1.7-2.3) 08/19/18 04:55 Total Bilirubin 1.30 mg/dL (0.1-1.2) H 07/27/18 12:59 AST 15 units/L (5-40) 07/27/18 12:59 ALT 16 units/L (7-56) 07/27/18 12:59 Alkaline Phosphatase 62 units/L (35-129) 07/27/18 12:59 Troponin T < 0.010 ng/mL (0.00-0.029) 07/27/18 12:59 C-Reactive Protein 2.30 mg/dL (0.00-1.30) H 08/03/18 16:48 NT-Pro-B Natriuret Pep 3913 pg/mL (0-900) H 07/27/18 12:59 Total Protein 6.2 g/dL (6.3-8.2) L 07/27/18 12:59 Albumin 3.6 g/dL (3.9-5) L 07/27/18 12:59 Albumin/Globulin Ratio 1.4 % 07/27/18 12:59 Triglycerides 64 mg/dL (2-149) 08/08/18 14:02 TSH 1.180 mlU/mL (0.270-4.200) 07/27/18 15:52 Free T4 1.28 ng/dL (0.76-1.46) 07/27/18 15:52 Urine Color Yellow (Yellow) 08/11/18 12:50 Urine Turbidity Clear (Clear) 08/11/18 12:50 Urine pH 6.0 (5.0-7.0) 08/11/18 12:50 Ur Specific [place] 1.015 (1.003-1.030) 08/11/18 12:50 Urine Protein <15 mg/dl mg/dL (Negative) 08/11/18 12:50 Urine Glucose (UA) 50 mg/dL (Negative) 08/11/18 12:50 Urine Ketones Neg mg/dL (Negative) 08/11/18 12:50 Urine Blood Neg (Negative) 08/11/18 12:50 Urine Nitrite Neg (Negative) 08/11/18 12:50 Urine Bilirubin Neg (Negative) 08/11/18 12:50 Urine Urobilinogen 4.0 mg/dL (<2.0) 08/11/18 12:50 Ur Leukocyte Esterase Neg (Negative) 08/11/18 12:50 Urine WBC (Auto) 2.0 /HPF (0.0-6.0) 08/11/18 12:50 Urine RBC (Auto) 2.0 /HPF (0.0-6.0) 08/11/18 12:50 U Epithel Cells (Auto) 2.0 /HPF (0-13.0) 07/29/18 09:24 Urine Bacteria (Auto) 1+ /HPF (Negative) 08/11/18 12:50 Urine Mucus Few /HPF 08/11/18 12:50 Urine Yeast (Budding) 1+ /HPF 07/29/18 09:24 Urine Creatinine 72.3 mg/dL (0.1-20.0) H 07/29/18 09:24 Urine Sodium 12 mmol/L 07/29/18 09:24 Random Vancomycin 9.2 ug/mL (0-40.0) 07/29/18 04:21 Nutrition/Malnutrition Assess - Dietary Evaluation Nutrition/Malnutrition Findings: Nutrition Notes Start: 07/28/18 10:54 Freq: Status: Active Protocol: Document 08/23/18 14:09 CT (Rec: 08/23/18 14:53 CT [id number]) Co-Sign 08/23/18 14:09 RM Nutrition Notes Initial or Follow up Reassessment Current Diagnosis Acute Kidney Injury COPD Sepsis Hypertension Heart Failure Respiratory Failure Other Pertinent Diagnosis Hx of Skin Cancer Current Diet Nepro at 50ml/hr Labs/Tests Reviewed Pertinent Medications Reviewed Height 5 ft 8 in Weight 76 kg [place] Body Weight (lbs) 154.0 BMI 25.4 Weight change and time frame Recorded wt. loss likely d/t fluid change. Subjective/Other Information Nepro infusing at goal rate of 50mL/hr, well tolerated per RN. Burn Absent Trauma Absent #1 Nutrition Diagnosis Inadequate oral intake Diagnosis Progress(for reassessment Continues documentation) Is patient on ventilator? Yes Is Patient Ambulatory and/or Out of Bed No REE-([facility]-confined to bed) [phone] Calculation [facility]ations [facility] Additional Notes protein (1.2-2g/kg): 91-152g fluid: 1mL/kcal Nutrition Intervention Change Diet Order: Continue TF Nutrition Support: Nepro at 50mL/hr 250 mL free water flush q4h or per MD. Kcal 2,160 Protein (gm) 97 Fluid (mL) 872 Goal #1 TF tolerance and rate Goal #2 Continue to meet at least 80% of kcal needs and 80-100% of protein needs. Follow-Up By: 08/30/18 Additional Comments F/U: stable TF
[2018-08-24] MEDS: LANTUS SUB-Q SCH (22:47)
[2018-08-25] MEDS: HumaLOG SUB-Q SCH ×3 (06:00→23:46)
[2018-08-25] MEDS: PULMICORT IH SCH ×2 (08:20→21:30)
[2018-08-25] MEDS: BROVANA NEBU IH SCH ×2 (08:20→21:30)
[2018-08-25] MEDS: TYLENOL FEEDTUBE PRN (10:58)
[2018-08-25] MEDS: PRAVACHOL PO SCH (10:59)
[2018-08-25] MEDS: SODIUM CHLORIDE FLUSH SYRINGE 10 ML IV SCH ×2 (10:59→23:57)
[2018-08-25] MEDS: CORDARONE PO SCH ×2 (10:59→23:55)
[2018-08-25] MEDS: ELIQUIS PO SCH ×2 (10:59→23:55)
[2018-08-25] MEDS: PEPCID PO SCH ×2 (10:59→23:55)
--- NOTE | 2018-08-25 14:43 | Progress Note ---
Assessment and Plan Assessment and plan: Continue T piece, wean FiO2 as tolerated -ID input appreciated, monitor off antibiotics patient is 73 yo with H/O COPD, PVD, HTN, HLD, Seizure Disorder, Skin Cancer presented with chest pain, shortness of breath. -He presented in A. fib with RVR, he was medically managed and transitioned from IV to oral medications -The patient suffered respiratory failure for which she was on the ventilator wh ich required prolonged weaning, therefore trach and PEG was placed on 08/11/19. The patient is currently on T piece with FiO2 which is being weaned currently 35% -The patient completed a course of antibiotics for treatment of bacteremia due to Streptococcus anginosus -He was medically treated for acute renal failure with IV fluids and that has not resolved -The patient also suffers a urethral stricture with obstruction and therefore we received a Osborne cath that was placed by urology which is not to be removed -He was medically treated for COPD exacerbation, and medications were optimized for his chronic conditions -The patient's is currently awaiting SNIF placement Diagnosis Septicemia Streptococcus anginous is bacteremia Left lower lobe pneumonia Acute hypoxia was a failure on mechanical ventilator greater than 96 hours Atrial fibrillation with RVR Acute renal failure due to vasomotor nephropathy, Hematuria/Urethral stricture. COPD exacerbation. Hypertension. Hyperlipidemia. Peripheral vascular disease. Disposition.Plan is for snf placement, primary insurance does not cover snf, looking into secondary insurance History Interval history: Review of systems Constitutional: No fevers, no malaise, no joint pains CVS: No chest pain, no orthopnea, no dyspnea on exertion, no pedal edema GI: No abdominal pain, no diarrhea, no vomiting, no constipation Respiratory: No shortness of breath, no wheezing, no coughing Hospitalist Physical - Physical exam Narrative exam: General.: Appears well, no distress, nontoxic HEENT: Tracheostomy in place Neck: supple Cardiac: S1-S2 heard Lungs: clear to auscultation bilaterally Abdomen: soft , nontender, nondistended, bowel sounds positive Extremities: no edema clubbing or cyanosis Skin: no rash or lesions Neurologic: no gross focal deficits Psych: calm, and cooperative - Constitutional Vitals: Temp Pulse Resp BP Pulse Ox 97.9 F 69 22 133/68 95 08/25/18 12:02 08/25/18 12:02 08/25/18 12:02 08/25/18 12:02 08/25/18 14:29 General appearance: Present: other (intubated on mechanical ventilation) Results - Labs CBC & Chem 7: 08/23/18 04:37 08/23/18 04:37 Labs: Laboratory Last Values WBC 9.3 K/mm3 (4.5-11.0) 08/23/18 04:37 RBC 2.94 M/mm3 (3.65-5.03) L 08/23/18 04:37 Hgb 9.7 gm/dl (11.8-15.2) L 08/23/18 04:37 Hct 30.0 % (35.5-45.6) L 08/23/18 04:37 MCV 102 fl (84-94) H 08/23/18 04:37 MCH 33 pg (28-32) H 08/23/18 04:37 MCHC 33 % (32-34) 08/23/18 04:37 RDW 17.0 % (13.2-15.2) H 08/23/18 04:37 Plt Count 509 K/mm3 (140-440) H 08/23/18 04:37 Lymph % (Auto) 3.8 % (13.4-35.0) L 08/16/18 11:06 [place] % (Auto) 5.7 % (0.0-7.3) 08/16/18 11:06 Eos % (Auto) 0.6 % (0.0-4.3) 08/16/18 11:06 Baso % (Auto) 0.4 % (0.0-1.8) 08/16/18 11:06 Lymph # 0.4 K/mm3 (1.2-5.4) L 08/16/18 11:06 [place] # 0.6 K/mm3 (0.0-0.8) 08/16/18 11:06 Eos # 0.1 K/mm3 (0.0-0.4) 08/16/18 11:06 Baso # 0.0 K/mm3 (0.0-0.1) 08/16/18 11:06 Add Manual Diff Complete 08/08/18 02:09 Total Counted 100 08/08/18 02:09 Seg Neutrophils % 89.5 % (40.0-70.0) H 08/16/18 11:06 Seg Neuts % (Manual) 73.0 % (40.0-70.0) H 08/08/18 02:09 Band Neutrophils % 5.0 % 08/08/18 02:09 Lymphocytes % (Manual) 9.0 % (13.4-35.0) L 08/08/18 02:09 Reactive Lymphs % (Man) 0 % 08/08/18 02:09 Monocytes % (Manual) 10.0 % (0.0-7.3) H 08/08/18 02:09 Eosinophils % (Manual) 0 % (0.0-4.3) 08/08/18 02:09 Basophils % (Manual) 0 % (0.0-1.8) 08/08/18 02:09 Metamyelocytes % 3.0 % 08/08/18 02:09 Myelocytes % 0 % 08/08/18 02:09 Promyelocytes % 0 % 08/08/18 02:09 Blast Cells % 0 % 08/08/18 02:09 Nucleated RBC % Not Reportable 08/08/18 02:09 Seg Neutrophils # 9.1 K/mm3 (1.8-7.7) H 08/16/18 11:06 Seg Neutrophils # Man 10.7 K/mm3 (1.8-7.7) H 08/08/18 02:09 Band Neutrophils # 0.7 K/mm3 08/08/18 02:09 Lymphocytes # (Manual) 1.3 K/mm3 (1.2-5.4) 08/08/18 02:09 Abs React Lymphs (Man) 0.0 K/mm3 08/08/18 02:09 Monocytes # (Manual) 1.5 K/mm3 (0.0-0.8) H 08/08/18 02:09 Eosinophils # (Manual) 0.0 K/mm3 (0.0-0.4) 08/08/18 02:09 Basophils # (Manual) 0.0 K/mm3 (0.0-0.1) 08/08/18 02:09 Metamyelocytes # 0.4 K/mm3 08/08/18 02:09 Myelocytes # 0.0 K/mm3 08/08/18 02:09 Promyelocytes # 0.0 K/mm3 08/08/18 02:09 Blast Cells # 0.0 K/mm3 08/08/18 02:09 Pathologist Review 07/28/18 06:01 WBC Morphology Not Reportable 08/08/18 02:09 Hypersegmented Neuts Not Reportable 08/08/18 02:09 Hyposegmented Neuts Not Reportable 08/08/18 02:09 Hypogranular Neuts Not Reportable 08/08/18 02:09 Smudge Cells Not Reportable 08/08/18 02:09 Toxic Granulation Not Reportable 08/08/18 02:09 Toxic Vacuolation Not Reportable 08/08/18 02:09 Dohle Bodies Not Reportable 08/08/18 02:09 Pelger-Huet Anomaly Not Reportable 08/08/18 02:09 Janiya Rods Not Reportable 08/08/18 02:09 Platelet Estimate Appears normal 08/08/18 02:09 Clumped Platelets Not Reportable 08/08/18 02:09 Plt Clumps, EDTA Not Reportable 08/08/18 02:09 Large Platelets Not Reportable 08/08/18 02:09 Giant Platelets Not Reportable 08/08/18 02:09 Platelet Satelliting Not Reportable 08/08/18 02:09 Plt Morphology Comment Not Reportable 08/08/18 02:09 RBC Morphology Not Reportable 08/08/18 02:09 Dimorphic RBCs Not Reportable 08/08/18 02:09 Polychromasia Not Reportable 08/08/18 02:09 Hypochromasia Few 08/08/18 02:09 Poikilocytosis Not Reportable 08/08/18 02:09 Anisocytosis 1+ 08/08/18 02:09 Microcytosis Not Reportable 08/08/18 02:09 Macrocytosis Not Reportable 08/08/18 02:09 Spherocytes Not Reportable 08/08/18 02:09 Pappenheimer Bodies Not Reportable 08/08/18 02:09 Sickle Cells Not Reportable 08/08/18 02:09 Target Cells Not Reportable 08/08/18 02:09 Tear Drop Cells Not Reportable 08/08/18 02:09 Ovalocytes Not Reportable 08/08/18 02:09 Stomatocytes Few 08/08/18 02:09 Helmet Cells Not Reportable 08/08/18 02:09 Lr-[place] Bodies Not Reportable 08/08/18 02:09 [place] Rings Not Reportable 08/08/18 02:09 [place] Cells Not Reportable 08/08/18 02:09 Bite Cells Not Reportable 08/08/18 02:09 Crenated Cell Not Reportable 08/08/18 02:09 Elliptocytes Not Reportable 08/08/18 02:09 Acanthocytes (Spur) Not Reportable 08/08/18 02:09 Rouleaux Not Reportable 08/08/18 02:09 Hemoglobin C Crystals Not Reportable 08/08/18 02:09 Schistocytes Not Reportable 08/08/18 02:09 Malaria parasites Not Reportable 08/08/18 02:09 Jigar Bodies Not Reportable 08/08/18 02:09 Hem Pathologist Commnt No 08/08/18 02:09 PT 13.4 Sec. (12.2-14.9) 08/07/18 15:08 INR 0.98 (0.87-1.13) 08/07/18 15:08 APTT 23.2 Sec. (24.2-36.6) L 08/07/18 15:08 D-Dimer 798.17 ng/mlDDU (0-234) H 07/27/18 15:52 Heparin Anti-Xa Level 1.18 U.I./ml (0.3-0.7) H 08/12/18 14:56 POC ABG pH 7.370 (7.35-7.45) 08/19/18 05:16 POC ABG pCO2 57.5 (35-45) H 08/19/18 05:16 POC ABG pO2 65 (80-105) L 08/19/18 05:16 POC ABG HCO3 33.2 08/19/18 05:16 POC ABG Total CO2 35 08/19/18 05:16 POC ABG O2 Sat 91 08/19/18 05:16 POC ABG Base Excess 8 08/19/18 05:16 FiO2 40 % 08/19/18 05:16 Sodium 138 mmol/L (137-145) 08/23/18 04:37 Potassium 4.0 mmol/L (3.6-5.0) 08/23/18 04:37 Chloride 99.0 mmol/L (98-107) 08/23/18 04:37 Carbon Dioxide 30 mmol/L (22-30) 08/23/18 04:37 Anion Gap 13 mmol/L 08/23/18 04:37 BUN 16 mg/dL (9-20) 08/23/18 04:37 Creatinine 0.5 mg/dL (0.8-1.5) L 08/23/18 04:37 Estimated GFR > 60 ml/min 08/23/18 04:37 BUN/Creatinine Ratio 32 % 08/23/18 04:37 Glucose 141 mg/dL (75-100) H 08/23/18 04:37 POC Glucose 92 (70-105) 08/25/18 14:40 Lactic Acid 1.30 mmol/L (0.7-2.0) 08/03/18 16:48 Calcium 8.8 mg/dL (8.4-10.2) 08/23/18 04:37 Phosphorus 3.30 mg/dL (2.5-4.5) 08/19/18 04:55 Magnesium 2.30 mg/dL (1.7-2.3) 08/19/18 04:55 Total Bilirubin 1.30 mg/dL (0.1-1.2) H 07/27/18 12:59 AST 15 units/L (5-40) 07/27/18 12:59 ALT 16 units/L (7-56) 07/27/18 12:59 Alkaline Phosphatase 62 units/L (35-129) 07/27/18 12:59 Troponin T < 0.010 ng/mL (0.00-0.029) 07/27/18 12:59 C-Reactive Protein 2.30 mg/dL (0.00-1.30) H 08/03/18 16:48 NT-Pro-B Natriuret Pep 3913 pg/mL (0-900) H 07/27/18 12:59 Total Protein 6.2 g/dL (6.3-8.2) L 07/27/18 12:59 Albumin 3.6 g/dL (3.9-5) L 07/27/18 12:59 Albumin/Globulin Ratio 1.4 % 07/27/18 12:59 Triglycerides 64 mg/dL (2-149) 08/08/18 14:02 TSH 1.180 mlU/mL (0.270-4.200) 07/27/18 15:52 Free T4 1.28 ng/dL (0.76-1.46) 07/27/18 15:52 Urine Color Yellow (Yellow) 08/11/18 12:50 Urine Turbidity Clear (Clear) 08/11/18 12:50 Urine pH 6.0 (5.0-7.0) 08/11/18 12:50 Ur Specific [place] 1.015 (1.003-1.030) 08/11/18 12:50 Urine Protein <15 mg/dl mg/dL (Negative) 08/11/18 12:50 Urine Glucose (UA) 50 mg/dL (Negative) 08/11/18 12:50 Urine Ketones Neg mg/dL (Negative) 08/11/18 12:50 Urine Blood Neg (Negative) 08/11/18 12:50 Urine Nitrite Neg (Negative) 08/11/18 12:50 Urine Bilirubin Neg (Negative) 08/11/18 12:50 Urine Urobilinogen 4.0 mg/dL (<2.0) 08/11/18 12:50 Ur Leukocyte Esterase Neg (Negative) 08/11/18 12:50 Urine WBC (Auto) 2.0 /HPF (0.0-6.0) 08/11/18 12:50 Urine RBC (Auto) 2.0 /HPF (0.0-6.0) 08/11/18 12:50 U Epithel Cells (Auto) 2.0 /HPF (0-13.0) 07/29/18 09:24 Urine Bacteria (Auto) 1+ /HPF (Negative) 08/11/18 12:50 Urine Mucus Few /HPF 08/11/18 12:50 Urine Yeast (Budding) 1+ /HPF 07/29/18 09:24 Urine Creatinine 72.3 mg/dL (0.1-20.0) H 07/29/18 09:24 Urine Sodium 12 mmol/L 07/29/18 09:24 Random Vancomycin 9.2 ug/mL (0-40.0) 07/29/18 04:21 Nutrition/Malnutrition Assess - Dietary Evaluation Nutrition/Malnutrition Findings: Nutrition Notes Start: 07/28/18 10:54 Freq: Status: Active Protocol: Document 08/23/18 14:09 CT (Rec: 08/23/18 14:53 CT [id number]) Co-Sign 08/23/18 14:09 RM Nutrition Notes Initial or Follow up Reassessment Current Diagnosis Acute Kidney Injury COPD Sepsis Hypertension Heart Failure Respiratory Failure Other Pertinent Diagnosis Hx of Skin Cancer Current Diet Nepro at 50ml/hr Labs/Tests Reviewed Pertinent Medications Reviewed Height 5 ft 8 in Weight 76 kg [place] Body Weight (lbs) 154.0 BMI 25.4 Weight change and time frame Recorded wt. loss likely d/t fluid change. Subjective/Other Information Nepro infusing at goal rate of 50mL/hr, well tolerated per RN. Burn Absent Trauma Absent #1 Nutrition Diagnosis Inadequate oral intake Diagnosis Progress(for reassessment Continues documentation) Is patient on ventilator? Yes Is Patient Ambulatory and/or Out of Bed No REE-([facility]-confined to bed) 5501.422 Calculation Used for Recommendations [facility] Additional Notes protein (1.2-2g/kg): 91-152g fluid: 1mL/kcal Nutrition Intervention Change Diet Order: Continue TF Nutrition Support: Nepro at 50mL/hr 250 mL free water flush q4h or per MD. Kcal 2,160 Protein (gm) 97 Fluid (mL) 872 Goal #1 TF tolerance and rate Goal #2 Continue to meet at least 80% of kcal needs and 80-100% of protein needs. Follow-Up By: 08/30/18 Additional Comments F/U: stable TF
[2018-08-25] MEDS: VITAMIN B-12 PO SCH (16:38)
[2018-08-25] MEDS: LANTUS SUB-Q SCH (23:47)
[2018-08-26] MEDS: HumaLOG SUB-Q SCH ×3 (06:00→22:00)
--- NOTE | 2018-08-26 07:47 | Progress Note ---
Assessment and Plan Assessment and plan: Continue T piece, wean FiO2 as tolerated -ID input appreciated, monitor off antibiotics patient is 73 yo with H/O COPD, PVD, HTN, HLD, Seizure Disorder, Skin Cancer presented with chest pain, shortness of breath. -He presented in A. fib with RVR, he was medically managed and transitioned from IV to oral medications -The patient suffered respiratory failure for which she was on the ventilator wh ich required prolonged weaning, therefore trach and PEG was placed on 08/11/19. The patient is currently on T piece with FiO2 which is being weaned currently 35% -The patient completed a course of antibiotics for treatment of bacteremia due to Streptococcus anginosus -He was medically treated for acute renal failure with IV fluids and that has not resolved -The patient also suffers a urethral stricture with obstruction and therefore we received a Osborne cath that was placed by urology which is not to be removed -He was medically treated for COPD exacerbation, and medications were optimized for his chronic conditions -The patient's is currently awaiting SNIF placement Diagnosis Septicemia Streptococcus anginous is bacteremia Left lower lobe pneumonia Acute hypoxia was a failure on mechanical ventilator greater than 96 hours Atrial fibrillation with RVR Acute renal failure due to vasomotor nephropathy, Hematuria/Urethral stricture. COPD exacerbation. Hypertension. Hyperlipidemia. Peripheral vascular disease. Disposition.Plan is acute placement, auth in progress History Interval history: Review of systems Constitutional: No fevers, no malaise, no joint pains CVS: No chest pain, no orthopnea, no dyspnea on exertion, no pedal edema GI: No abdominal pain, no diarrhea, no vomiting, no constipation Respiratory: No shortness of breath, no wheezing, no coughing Hospitalist Physical - Physical exam Narrative exam: General.: Appears well, no distress, nontoxic HEENT: Tracheostomy in place Neck: supple Cardiac: S1-S2 heard Lungs: clear to auscultation bilaterally Abdomen: soft , nontender, nondistended, bowel sounds positive Extremities: no edema clubbing or cyanosis Skin: no rash or lesions Neurologic: no gross focal deficits Psych: calm, and cooperative - Constitutional Vitals: Temp Pulse Resp BP Pulse Ox 98.1 F 80 28 H 137/70 98 08/26/18 04:59 08/26/18 04:59 08/26/18 04:59 08/26/18 04:59 08/26/18 04:59 General appearance: Present: other (intubated on mechanical ventilation) Results - Labs CBC & Chem 7: 08/23/18 04:37 08/23/18 04:37 Labs: Laboratory Last Values WBC 9.3 K/mm3 (4.5-11.0) 08/23/18 04:37 RBC 2.94 M/mm3 (3.65-5.03) L 08/23/18 04:37 Hgb 9.7 gm/dl (11.8-15.2) L 08/23/18 04:37 Hct 30.0 % (35.5-45.6) L 08/23/18 04:37 MCV 102 fl (84-94) H 08/23/18 04:37 MCH 33 pg (28-32) H 08/23/18 04:37 MCHC 33 % (32-34) 08/23/18 04:37 RDW 17.0 % (13.2-15.2) H 08/23/18 04:37 Plt Count 509 K/mm3 (140-440) H 08/23/18 04:37 Lymph % (Auto) 3.8 % (13.4-35.0) L 08/16/18 11:06 [place] % (Auto) 5.7 % (0.0-7.3) 08/16/18 11:06 Eos % (Auto) 0.6 % (0.0-4.3) 08/16/18 11:06 Baso % (Auto) 0.4 % (0.0-1.8) 08/16/18 11:06 Lymph # 0.4 K/mm3 (1.2-5.4) L 08/16/18 11:06 [place] # 0.6 K/mm3 (0.0-0.8) 08/16/18 11:06 Eos # 0.1 K/mm3 (0.0-0.4) 08/16/18 11:06 Baso # 0.0 K/mm3 (0.0-0.1) 08/16/18 11:06 Add Manual Diff Complete 08/08/18 02:09 Total Counted 100 08/08/18 02:09 Seg Neutrophils % 89.5 % (40.0-70.0) H 08/16/18 11:06 Seg Neuts % (Manual) 73.0 % (40.0-70.0) H 08/08/18 02:09 Band Neutrophils % 5.0 % 08/08/18 02:09 Lymphocytes % (Manual) 9.0 % (13.4-35.0) L 08/08/18 02:09 Reactive Lymphs % (Man) 0 % 08/08/18 02:09 Monocytes % (Manual) 10.0 % (0.0-7.3) H 08/08/18 02:09 Eosinophils % (Manual) 0 % (0.0-4.3) 08/08/18 02:09 Basophils % (Manual) 0 % (0.0-1.8) 08/08/18 02:09 Metamyelocytes % 3.0 % 08/08/18 02:09 Myelocytes % 0 % 08/08/18 02:09 Promyelocytes % 0 % 08/08/18 02:09 Blast Cells % 0 % 08/08/18 02:09 Nucleated RBC % Not Reportable 08/08/18 02:09 Seg Neutrophils # 9.1 K/mm3 (1.8-7.7) H 08/16/18 11:06 Seg Neutrophils # Man 10.7 K/mm3 (1.8-7.7) H 08/08/18 02:09 Band Neutrophils # 0.7 K/mm3 08/08/18 02:09 Lymphocytes # (Manual) 1.3 K/mm3 (1.2-5.4) 08/08/18 02:09 Abs React Lymphs (Man) 0.0 K/mm3 08/08/18 02:09 Monocytes # (Manual) 1.5 K/mm3 (0.0-0.8) H 08/08/18 02:09 Eosinophils # (Manual) 0.0 K/mm3 (0.0-0.4) 08/08/18 02:09 Basophils # (Manual) 0.0 K/mm3 (0.0-0.1) 08/08/18 02:09 Metamyelocytes # 0.4 K/mm3 08/08/18 02:09 Myelocytes # 0.0 K/mm3 08/08/18 02:09 Promyelocytes # 0.0 K/mm3 08/08/18 02:09 Blast Cells # 0.0 K/mm3 08/08/18 02:09 Pathologist Review 07/28/18 06:01 WBC Morphology Not Reportable 08/08/18 02:09 Hypersegmented Neuts Not Reportable 08/08/18 02:09 Hyposegmented Neuts Not Reportable 08/08/18 02:09 Hypogranular Neuts Not Reportable 08/08/18 02:09 Smudge Cells Not Reportable 08/08/18 02:09 Toxic Granulation Not Reportable 08/08/18 02:09 Toxic Vacuolation Not Reportable 08/08/18 02:09 Dohle Bodies Not Reportable 08/08/18 02:09 Pelger-Huet Anomaly Not Reportable 08/08/18 02:09 Janiya Rods Not Reportable 08/08/18 02:09 Platelet Estimate Appears normal 08/08/18 02:09 Clumped Platelets Not Reportable 08/08/18 02:09 Plt Clumps, EDTA Not Reportable 08/08/18 02:09 Large Platelets Not Reportable 08/08/18 02:09 Giant Platelets Not Reportable 08/08/18 02:09 Platelet Satelliting Not Reportable 08/08/18 02:09 Plt Morphology Comment Not Reportable 08/08/18 02:09 RBC Morphology Not Reportable 08/08/18 02:09 Dimorphic RBCs Not Reportable 08/08/18 02:09 Polychromasia Not Reportable 08/08/18 02:09 Hypochromasia Few 08/08/18 02:09 Poikilocytosis Not Reportable 08/08/18 02:09 Anisocytosis 1+ 08/08/18 02:09 Microcytosis Not Reportable 08/08/18 02:09 Macrocytosis Not Reportable 08/08/18 02:09 Spherocytes Not Reportable 08/08/18 02:09 Pappenheimer Bodies Not Reportable 08/08/18 02:09 Sickle Cells Not Reportable 08/08/18 02:09 Target Cells Not Reportable 08/08/18 02:09 Tear Drop Cells Not Reportable 08/08/18 02:09 Ovalocytes Not Reportable 08/08/18 02:09 Stomatocytes Few 08/08/18 02:09 Helmet Cells Not Reportable 08/08/18 02:09 Lr-[place] Bodies Not Reportable 08/08/18 02:09 [place] Rings Not Reportable 08/08/18 02:09 [place] Cells Not Reportable 08/08/18 02:09 Bite Cells Not Reportable 08/08/18 02:09 Crenated Cell Not Reportable 08/08/18 02:09 Elliptocytes Not Reportable 08/08/18 02:09 Acanthocytes (Spur) Not Reportable 08/08/18 02:09 Rouleaux Not Reportable 08/08/18 02:09 Hemoglobin C Crystals Not Reportable 08/08/18 02:09 Schistocytes Not Reportable 08/08/18 02:09 Malaria parasites Not Reportable 08/08/18 02:09 Jigar Bodies Not Reportable 08/08/18 02:09 Hem Pathologist Commnt No 08/08/18 02:09 PT 13.4 Sec. (12.2-14.9) 08/07/18 15:08 INR 0.98 (0.87-1.13) 08/07/18 15:08 APTT 23.2 Sec. (24.2-36.6) L 08/07/18 15:08 D-Dimer 798.17 ng/mlDDU (0-234) H 07/27/18 15:52 Heparin Anti-Xa Level 1.18 U.I./ml (0.3-0.7) H 08/12/18 14:56 POC ABG pH 7.370 (7.35-7.45) 08/19/18 05:16 POC ABG pCO2 57.5 (35-45) H 08/19/18 05:16 POC ABG pO2 65 (80-105) L 08/19/18 05:16 POC ABG HCO3 33.2 08/19/18 05:16 POC ABG Total CO2 35 08/19/18 05:16 POC ABG O2 Sat 91 08/19/18 05:16 POC ABG Base Excess 8 08/19/18 05:16 FiO2 40 % 08/19/18 05:16 Sodium 138 mmol/L (137-145) 08/23/18 04:37 Potassium 4.0 mmol/L (3.6-5.0) 08/23/18 04:37 Chloride 99.0 mmol/L (98-107) 08/23/18 04:37 Carbon Dioxide 30 mmol/L (22-30) 08/23/18 04:37 Anion Gap 13 mmol/L 08/23/18 04:37 BUN 16 mg/dL (9-20) 08/23/18 04:37 Creatinine 0.5 mg/dL (0.8-1.5) L 08/23/18 04:37 Estimated GFR > 60 ml/min 08/23/18 04:37 BUN/Creatinine Ratio 32 % 08/23/18 04:37 Glucose 141 mg/dL (75-100) H 08/23/18 04:37 POC Glucose 94 (70-105) 08/25/18 21:31 Lactic Acid 1.30 mmol/L (0.7-2.0) 08/03/18 16:48 Calcium 8.8 mg/dL (8.4-10.2) 08/23/18 04:37 Phosphorus 3.30 mg/dL (2.5-4.5) 08/19/18 04:55 Magnesium 2.30 mg/dL (1.7-2.3) 08/19/18 04:55 Total Bilirubin 1.30 mg/dL (0.1-1.2) H 07/27/18 12:59 AST 15 units/L (5-40) 07/27/18 12:59 ALT 16 units/L (7-56) 07/27/18 12:59 Alkaline Phosphatase 62 units/L (35-129) 07/27/18 12:59 Troponin T < 0.010 ng/mL (0.00-0.029) 07/27/18 12:59 C-Reactive Protein 2.30 mg/dL (0.00-1.30) H 08/03/18 16:48 NT-Pro-B Natriuret Pep 3913 pg/mL (0-900) H 07/27/18 12:59 Total Protein 6.2 g/dL (6.3-8.2) L 07/27/18 12:59 Albumin 3.6 g/dL (3.9-5) L 07/27/18 12:59 Albumin/Globulin Ratio 1.4 % 07/27/18 12:59 Triglycerides 64 mg/dL (2-149) 08/08/18 14:02 TSH 1.180 mlU/mL (0.270-4.200) 07/27/18 15:52 Free T4 1.28 ng/dL (0.76-1.46) 07/27/18 15:52 Urine Color Yellow (Yellow) 08/11/18 12:50 Urine Turbidity Clear (Clear) 08/11/18 12:50 Urine pH 6.0 (5.0-7.0) 08/11/18 12:50 Ur Specific [place] 1.015 (1.003-1.030) 08/11/18 12:50 Urine Protein <15 mg/dl mg/dL (Negative) 08/11/18 12:50 Urine Glucose (UA) 50 mg/dL (Negative) 08/11/18 12:50 Urine Ketones Neg mg/dL (Negative) 08/11/18 12:50 Urine Blood Neg (Negative) 08/11/18 12:50 Urine Nitrite Neg (Negative) 08/11/18 12:50 Urine Bilirubin Neg (Negative) 08/11/18 12:50 Urine Urobilinogen 4.0 mg/dL (<2.0) 08/11/18 12:50 Ur Leukocyte Esterase Neg (Negative) 08/11/18 12:50 Urine WBC (Auto) 2.0 /HPF (0.0-6.0) 08/11/18 12:50 Urine RBC (Auto) 2.0 /HPF (0.0-6.0) 08/11/18 12:50 U Epithel Cells (Auto) 2.0 /HPF (0-13.0) 07/29/18 09:24 Urine Bacteria (Auto) 1+ /HPF (Negative) 08/11/18 12:50 Urine Mucus Few /HPF 08/11/18 12:50 Urine Yeast (Budding) 1+ /HPF 07/29/18 09:24 Urine Creatinine 72.3 mg/dL (0.1-20.0) H 07/29/18 09:24 Urine Sodium 12 mmol/L 07/29/18 09:24 Random Vancomycin 9.2 ug/mL (0-40.0) 07/29/18 04:21 Nutrition/Malnutrition Assess - Dietary Evaluation Nutrition/Malnutrition Findings: Nutrition Notes Start: 07/28/18 10:54 Freq: Status: Active Protocol: Document 08/23/18 14:09 CT (Rec: 08/23/18 14:53 CT [id number]) Co-Sign 08/23/18 14:09 RM Nutrition Notes Initial or Follow up Reassessment Current Diagnosis Acute Kidney Injury COPD Sepsis Hypertension Heart Failure Respiratory Failure Other Pertinent Diagnosis Hx of Skin Cancer Current Diet Nepro at 50ml/hr Labs/Tests Reviewed Pertinent Medications Reviewed Height 5 ft 8 in Weight 76 kg [place] Body Weight (lbs) 154.0 BMI 25.4 Weight change and time frame Recorded wt. loss likely d/t fluid change. Subjective/Other Information Nepro infusing at goal rate of 50mL/hr, well tolerated per RN. Burn Absent Trauma Absent #1 Nutrition Diagnosis Inadequate oral intake Diagnosis Progress(for reassessment Continues documentation) Is patient on ventilator? Yes Is Patient Ambulatory and/or Out of Bed No REE-([facility]-confined to bed) 2728.605 Calculation Used for Recommendations [facility] Additional Notes protein (1.2-2g/kg): 91-152g fluid: 1mL/kcal Nutrition Intervention Change Diet Order: Continue TF Nutrition Support: Nepro at 50mL/hr 250 mL free water flush q4h or per MD. Kcal 2,160 Protein (gm) 97 Fluid (mL) 872 Goal #1 TF tolerance and rate Goal #2 Continue to meet at least 80% of kcal needs and 80-100% of protein needs. Follow-Up By: 08/30/18 Additional Comments F/U: stable TF
[2018-08-26] MEDS: BROVANA NEBU IH SCH ×2 (08:02→21:09)
[2018-08-26] MEDS: PULMICORT IH SCH ×2 (08:02→21:09)
[2018-08-26] MEDS: VITAMIN B-12 PO SCH (11:29)
[2018-08-26] MEDS: PEPCID PO SCH ×2 (11:30→23:01)
[2018-08-26] MEDS: ELIQUIS PO SCH ×2 (11:30→23:02)
[2018-08-26] MEDS: PRAVACHOL PO SCH (11:31)
[2018-08-26] MEDS: CORDARONE PO SCH ×2 (11:32→23:01)
[2018-08-26] MEDS: SODIUM CHLORIDE FLUSH SYRINGE 10 ML IV SCH ×2 (11:33→22:29)
--- NOTE | 2018-08-26 12:50 | Progress Note ---
Assessment and Plan Acute hypoxemic respiratory failure, on mechanical ventilatory support. Atrial fibrillation with rapid ventricular response. Possible congestive heart failure with an acute exacerbation. 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 Elevated D-dimer. Leukocytosis. Sepsis syndrome with hypotension and fevers this morning. Chronic obstructive lung disease with an acute exacerbation. Hypernatremia Peripheral vascular disease. Mixed acidosis, respiratory and metabolic. Acute kidney injury. Lactic acidosis. Elevated BNP level of 3913. History of hypertension. History of arthritis. - continue RTC t-piece as tolerated - continue seroquel at current dose (will taper slowly) - hypernatremia resolved - continue Lantus insulin with SSI for glycemic control - tapered off solumedrol - PT/OT exercises as tolerated - advance diet per swallow av specialist - continue supplemental oxygen to keep sats >/= 90% - continue aspiration precautions - continue bronchodilators with routine trach care and pulmonary hygiene per RT - continue therapeutic anticoagulation - continue stress ulcer prophylaxis - complete Antibiotics course - continue other care per attending / other consultants - d/c planning ongoing .... re-evaluate in am & prn FULL CODE STATUS Subjective Date of service: 08/26/18 Principal diagnosis: Acute hypoxemic respiratory failure; A-fib with RVR; Possible CHF; H/O DVT Interval history: Patient is seen today for: Acute hypoxemic respiratory failure on MVS; Atrial fibrillation with RVR; Possible congestive heart failure with an acute exacerbation; History of deep venous thrombosis; Elevated D-dimer. Seen and examined at bedside; 24hour events reviewed; nursing and respiratory care staff consulted; no adverse overnight events reported to me; tolerating PT/OT very well; remains on supplemental oxygen; denies acute chest pains or palpitations; no emesis or overt aspiration Objective Vital Signs - 12hr 08/26/18 08/26/18 08/26/18 04:24 04:59 08:02 Temperature 98.1 F Pulse Rate 80 Pulse Rate [ 77 Bilateral] Respiratory 28 H Rate Respiratory 18 Rate [Bilateral ] Blood Pressure 137/70 O2 Sat by Pulse 95 98 Oximetry O2 Sat by Pulse Oximetry [ Assessment] 08/26/18 08/26/18 08/26/18 08:12 08:23 08:25 Temperature Pulse Rate Pulse Rate [ 79 Bilateral] Respiratory Rate Respiratory 18 Rate [Bilateral ] Blood Pressure O2 Sat by Pulse 94 Oximetry O2 Sat by Pulse 94 Oximetry [ Assessment] Constitutional: appears uncomfortable, other (elderly looking CM, normocephalic and atraumatic with normal respiratory effort) Eyes: non-icteric ENT: oropharynx moist, other (s/p tracheosomy) Neck: supple, no lymphadenopathy, no JVD, other (No thyromegaly) Effort: mildly labored Ascultation: Bilateral: diminished breath sounds, rhonchi Percussion: Bilateral: not dull Cardiovascular: irregular rhythm, other (+ systolic murmur) Gastrointestinal: normoactive bowel sounds, soft, non-tender, non-distended, other (No palpable HSM) Integumentary: rash, other (upper extremity edema) Extremities: no cyanosis, pink and warm, pulses normal, no ischemia or petechiae Neurologic: normal mental status, non-focal exam (grossly), pupils equal and round, CN II-XII normal, other (moves all extemities) Psychiatric: mood appropriate, affect normal CBC and BMP: 08/23/18 04:37 08/23/18 04:37 ABG, PT/INR, D-dimer: ABG POC ABG pH 7.370 (7.35-7.45) 08/19/18 05:16 POC ABG pCO2 57.5 (35-45) H 08/19/18 05:16 POC ABG pO2 65 (80-105) L 08/19/18 05:16 POC ABG HCO3 33.2 08/19/18 05:16 POC ABG Total CO2 35 08/19/18 05:16 POC ABG O2 Sat 91 08/19/18 05:16 PT/INR, D-dimer PT 13.4 Sec. (12.2-14.9) 08/07/18 15:08 INR 0.98 (0.87-1.13) 08/07/18 15:08 D-Dimer 798.17 ng/mlDDU (0-234) H 07/27/18 15:52 Abnormal lab findings: Abnormal Labs 07/27/18 07/27/18 07/27/18 12:59 12:59 12:59 WBC 15.8 H RBC Hgb Hct MCV 104 H MCH 34 H MCHC RDW 16.3 H Plt Count Lymph % (Auto) [place] % (Auto) Lymph # [place] # Seg Neutrophils % Seg Neuts % (Manual) 88.0 H Lymphocytes % (Manual) 3.0 L Monocytes % (Manual) Nucleated RBC % Seg Neutrophils # Seg Neutrophils # Man 13.9 H Lymphocytes # (Manual) 0.5 L Monocytes # (Manual) PT 17.0 H INR 1.34 H APTT D-Dimer Heparin Anti-Xa Level POC ABG pH POC ABG pCO2 POC ABG pO2 Sodium Potassium Chloride Carbon Dioxide 21 L BUN 38 H Creatinine 1.6 H Glucose POC Glucose Lactic Acid Calcium Phosphorus Total Bilirubin 1.30 H C-Reactive Protein NT-Pro-B Natriuret Pep 3913 H Total Protein 6.2 L Albumin 3.6 L Urine WBC (Auto) Urine Creatinine 07/27/18 07/27/18 07/27/18 15:52 16:12 17:09 WBC RBC Hgb Hct MCV MCH MCHC RDW Plt Count Lymph % (Auto) [place] % (Auto) Lymph # [place] # Seg Neutrophils % Seg Neuts % (Manual) Lymphocytes % (Manual) Monocytes % (Manual) Nucleated RBC % Seg Neutrophils # Seg Neutrophils # Man Lymphocytes # (Manual) Monocytes # (Manual) PT 16.0 H INR 1.24 H APTT D-Dimer 798.17 H Heparin Anti-Xa Level POC ABG pH POC ABG pCO2 POC ABG pO2 Sodium Potassium Chloride Carbon Dioxide BUN Creatinine Glucose POC Glucose Lactic Acid 5.00 H* Calcium Phosphorus Total Bilirubin C-Reactive Protein NT-Pro-B Natriuret Pep Total Protein Albumin Urine WBC (Auto) Urine Creatinine 07/27/18 07/27/18 07/27/18 17:59 18:07 21:31 WBC RBC Hgb Hct MCV MCH MCHC RDW Plt Count Lymph % (Auto) [place] % (Auto) Lymph # [place] # Seg Neutrophils % Seg Neuts % (Manual) Lymphocytes % (Manual) Monocytes % (Manual) Nucleated RBC % Seg Neutrophils # Seg Neutrophils # Man Lymphocytes # (Manual) Monocytes # (Manual) PT INR APTT D-Dimer Heparin Anti-Xa Level POC ABG pH 7.344 L POC ABG pCO2 POC ABG pO2 36 L Sodium Potassium Chloride Carbon Dioxide BUN Creatinine Glucose POC Glucose Lactic Acid 5.20 H* 5.00 H* Calcium Phosphorus Total Bilirubin C-Reactive Protein NT-Pro-B Natriuret Pep Total Protein Albumin Urine WBC (Auto) Urine Creatinine 07/27/18 07/27/18 07/27/18 21:57 22:42 23:26 WBC RBC Hgb Hct MCV MCH MCHC RDW Plt Count Lymph % (Auto) [place] % (Auto) Lymph # [place] # Seg Neutrophils % Seg Neuts % (Manual) Lymphocytes % (Manual) Monocytes % (Manual) Nucleated RBC % Seg Neutrophils # Seg Neutrophils # Man Lymphocytes # (Manual) Monocytes # (Manual) PT INR APTT D-Dimer Heparin Anti-Xa Level POC ABG pH 7.199 L POC ABG pCO2 62.0 H POC ABG pO2 Sodium Potassium Chloride Carbon Dioxide BUN Creatinine Glucose POC Glucose Lactic Acid 4.70 H* 5.00 H* Calcium Phosphorus Total Bilirubin C-Reactive Protein NT-Pro-B Natriuret Pep Total Protein Albumin Urine WBC (Auto) Urine Creatinine 07/28/18 07/28/18 07/28/18 00:45 05:40 05:58 WBC RBC Hgb Hct MCV MCH MCHC RDW Plt Count Lymph % (Auto) [place] % (Auto) Lymph # [place] # Seg Neutrophils % Seg Neuts % (Manual) Lymphocytes % (Manual) Monocytes % (Manual) Nucleated RBC % Seg Neutrophils # Seg Neutrophils # Man Lymphocytes # (Manual) Monocytes # (Manual) PT INR APTT D-Dimer Heparin Anti-Xa Level 0.11 L POC ABG pH 7.186 L POC ABG pCO2 60.1 H POC ABG pO2 68 L Sodium Potassium Chloride Carbon Dioxide BUN Creatinine Glucose POC Glucose Lactic Acid 4.70 H* Calcium Phosphorus Total Bilirubin C-Reactive Protein NT-Pro-B Natriuret Pep Total Protein Albumin Urine WBC (Auto) Urine Creatinine 07/28/18 07/28/18 07/28/18 06:01 06:01 07:19 WBC 12.5 H RBC 3.51 L Hgb 11.5 L Hct MCV 104 H MCH 33 H MCHC RDW 16.6 H Plt Count Lymph % (Auto) [place] % (Auto) Lymph # [place] # Seg Neutrophils % Seg Neuts % (Manual) Lymphocytes % (Manual) Monocytes % (Manual) Nucleated RBC % Seg Neutrophils # Seg Neutrophils # Man Lymphocytes # (Manual) Monocytes # (Manual) PT INR APTT D-Dimer Heparin Anti-Xa Level 0.14 L POC ABG pH POC ABG pCO2 POC ABG pO2 Sodium 135 L Potassium 5.1 H Chloride 95.0 L Carbon Dioxide 21 L BUN 54 H Creatinine 2.6 H D Glucose POC Glucose Lactic Acid Calcium Phosphorus Total Bilirubin C-Reactive Protein NT-Pro-B Natriuret Pep Total Protein Albumin Urine WBC (Auto) Urine Creatinine 07/28/18 07/28/18 07/28/18 07:19 09:20 11:06 WBC RBC Hgb Hct MCV MCH MCHC RDW Plt Count Lymph % (Auto) [place] % (Auto) Lymph # [place] # Seg Neutrophils % Seg Neuts % (Manual) Lymphocytes % (Manual) Monocytes % (Manual) Nucleated RBC % Seg Neutrophils # Seg Neutrophils # Man Lymphocytes # (Manual) Monocytes # (Manual) PT INR APTT D-Dimer Heparin Anti-Xa Level POC ABG pH 7.266 L POC ABG pCO2 49.7 H POC ABG pO2 74 L Sodium Potassium Chloride Carbon Dioxide BUN Creatinine Glucose POC Glucose Lactic Acid 4.00 H* 3.90 H* Calcium Phosphorus Total Bilirubin C-Reactive Protein NT-Pro-B Natriuret Pep Total Protein Albumin Urine WBC (Auto) Urine Creatinine 07/28/18 07/28/18 07/28/18 15:06 20:45 23:36 WBC RBC Hgb Hct MCV MCH MCHC RDW Plt Count Lymph % (Auto) [place] % (Auto) Lymph # [place] # Seg Neutrophils % Seg Neuts % (Manual) Lymphocytes % (Manual) Monocytes % (Manual) Nucleated RBC % Seg Neutrophils # Seg Neutrophils # Man Lymphocytes # (Manual) Monocytes # (Manual) PT INR APTT D-Dimer Heparin Anti-Xa Level 0.15 L POC ABG pH POC ABG pCO2 POC ABG pO2 Sodium 134 L Potassium 5.2 H Chloride Carbon Dioxide BUN 58 H Creatinine 2.1 H Glucose 110 H POC Glucose 125 H Lactic Acid Calcium Phosphorus Total Bilirubin C-Reactive Protein NT-Pro-B Natriuret Pep Total Protein Albumin Urine WBC (Auto) Urine Creatinine 07/29/18 07/29/18 07/29/18 01:12 04:21 04:21 WBC RBC 3.21 L Hgb 10.8 L Hct 33.0 L MCV 103 H MCH 34 H MCHC RDW 16.4 H Plt Count Lymph % (Auto) [place] % (Auto) Lymph # [place] # Seg Neutrophils % Seg Neuts % (Manual) Lymphocytes % (Manual) 11.0 L Monocytes % (Manual) Nucleated RBC % Seg Neutrophils # Seg Neutrophils # Man Lymphocytes # (Manual) 1.0 L Monocytes # (Manual) PT INR APTT D-Dimer Heparin Anti-Xa Level 0.21 L POC ABG pH POC ABG pCO2 POC ABG pO2 Sodium Potassium Chloride Carbon Dioxide BUN 48 H Creatinine 1.6 H Glucose 166 H POC Glucose Lactic Acid Calcium Phosphorus Total Bilirubin C-Reactive Protein NT-Pro-B Natriuret Pep Total Protein Albumin Urine WBC (Auto) Urine Creatinine 07/29/18 07/29/18 07/29/18 05:19 08:16 09:24 WBC RBC Hgb Hct MCV MCH MCHC RDW Plt Count Lymph % (Auto) [place] % (Auto) Lymph # [place] # Seg Neutrophils % Seg Neuts % (Manual) Lymphocytes % (Manual) Monocytes % (Manual) Nucleated RBC % Seg Neutrophils # Seg Neutrophils # Man Lymphocytes # (Manual) Monocytes # (Manual) PT INR APTT D-Dimer Heparin Anti-Xa Level 0.25 L POC ABG pH POC ABG pCO2 POC ABG pO2 Sodium Potassium Chloride Carbon Dioxide BUN Creatinine Glucose POC Glucose 181 H Lactic Acid Calcium Phosphorus Total Bilirubin C-Reactive Protein NT-Pro-B Natriuret Pep Total Protein Albumin Urine WBC (Auto) 29.0 H Urine Creatinine 07/29/18 07/29/18 07/29/18 09:24 10:00 15:03 WBC RBC Hgb Hct MCV MCH MCHC RDW Plt Count Lymph % (Auto) [place] % (Auto) Lymph # [place] # Seg Neutrophils % Seg Neuts % (Manual) Lymphocytes % (Manual) Monocytes % (Manual) Nucleated RBC % Seg Neutrophils # Seg Neutrophils # Man Lymphocytes # (Manual) Monocytes # (Manual) PT INR APTT D-Dimer Heparin Anti-Xa Level POC ABG pH POC ABG pCO2 POC ABG pO2 Sodium Potassium Chloride Carbon Dioxide BUN Creatinine Glucose POC Glucose 195 H 167 H Lactic Acid Calcium Phosphorus Total Bilirubin C-Reactive Protein NT-Pro-B Natriuret Pep Total Protein Albumin Urine WBC (Auto) Urine Creatinine 72.3 H 07/29/18 07/29/18 07/30/18 17:51 21:32 01:38 WBC RBC Hgb Hct MCV MCH MCHC RDW Plt Count Lymph % (Auto) [place] % (Auto) Lymph # [place] # Seg Neutrophils % Seg Neuts % (Manual) Lymphocytes % (Manual) Monocytes % (Manual) Nucleated RBC % Seg Neutrophils # Seg Neutrophils # Man Lymphocytes # (Manual) Monocytes # (Manual) PT INR APTT D-Dimer Heparin Anti-Xa Level POC ABG pH POC ABG pCO2 POC ABG pO2 Sodium Potassium Chloride Carbon Dioxide BUN Creatinine Glucose POC Glucose 167 H 217 H 194 H Lactic Acid Calcium Phosphorus Total Bilirubin C-Reactive Protein NT-Pro-B Natriuret Pep Total Protein Albumin Urine WBC (Auto) Urine Creatinine 07/30/18 07/30/18 07/30/18 03:21 05:13 10:18 WBC RBC Hgb Hct MCV MCH MCHC RDW Plt Count Lymph % (Auto) [place] % (Auto) Lymph # [place] # Seg Neutrophils % Seg Neuts % (Manual) Lymphocytes % (Manual) Monocytes % (Manual) Nucleated RBC % Seg Neutrophils # Seg Neutrophils # Man Lymphocytes # (Manual) Monocytes # (Manual) PT INR APTT D-Dimer Heparin Anti-Xa Level POC ABG pH POC ABG pCO2 50.3 H POC ABG pO2 78 L Sodium Potassium Chloride Carbon Dioxide BUN 41 H Creatinine Glucose 202 H POC Glucose 151 H Lactic Acid Calcium Phosphorus Total Bilirubin C-Reactive Protein NT-Pro-B Natriuret Pep Total Protein Albumin Urine WBC (Auto) Urine Creatinine 07/30/18 07/30/18 07/30/18 11:29 16:28 18:12 WBC RBC Hgb Hct MCV MCH MCHC RDW Plt Count Lymph % (Auto) [place] % (Auto) Lymph # [place] # Seg Neutrophils % Seg Neuts % (Manual) Lymphocytes % (Manual) Monocytes % (Manual) Nucleated RBC % Seg Neutrophils # Seg Neutrophils # Man Lymphocytes # (Manual) Monocytes # (Manual) PT INR APTT D-Dimer Heparin Anti-Xa Level POC ABG pH 7.326 L POC ABG pCO2 53.2 H POC ABG pO2 70 L Sodium Potassium Chloride Carbon Dioxide BUN Creatinine Glucose POC Glucose 247 H 212 H Lactic Acid Calcium Phosphorus Total Bilirubin C-Reactive Protein NT-Pro-B Natriuret Pep Total Protein Albumin Urine WBC (Auto) Urine Creatinine 07/30/18 07/30/18 07/31/18 20:08 21:52 01:59 WBC RBC Hgb Hct MCV MCH MCHC RDW Plt Count Lymph % (Auto) [place] % (Auto) Lymph # [place] # Seg Neutrophils % Seg Neuts % (Manual) Lymphocytes % (Manual) Monocytes % (Manual) Nucleated RBC % Seg Neutrophils # Seg Neutrophils # Man Lymphocytes # (Manual) Monocytes # (Manual) PT INR APTT D-Dimer Heparin Anti-Xa Level POC ABG pH POC ABG pCO2 POC ABG pO2 Sodium Potassium Chloride Carbon Dioxide BUN Creatinine Glucose POC Glucose 205 H 215 H 242 H Lactic Acid Calcium Phosphorus Total Bilirubin C-Reactive Protein NT-Pro-B Natriuret Pep Total Protein Albumin Urine WBC (Auto) Urine Creatinine 07/31/18 07/31/18 07/31/18 03:14 03:14 04:55 WBC RBC Hgb 10.6 L Hct 33.2 L MCV MCH MCHC RDW Plt Count Lymph % (Auto) [place] % (Auto) Lymph # [place] # Seg Neutrophils % Seg Neuts % (Manual) Lymphocytes % (Manual) Monocytes % (Manual) Nucleated RBC % Seg Neutrophils # Seg Neutrophils # Man Lymphocytes # (Manual) Monocytes # (Manual) PT INR APTT D-Dimer Heparin Anti-Xa Level POC ABG pH 7.331 L POC ABG pCO2 67.1 H POC ABG pO2 Sodium Potassium Chloride Carbon Dioxide BUN 36 H Creatinine 0.7 L Glucose 242 H POC Glucose Lactic Acid Calcium 10.3 H Phosphorus 2.30 L Total Bilirubin C-Reactive Protein NT-Pro-B Natriuret Pep Total Protein Albumin Urine WBC (Auto) Urine Creatinine 07/31/18 07/31/18 07/31/18 05:37 10:08 14:07 WBC RBC Hgb Hct MCV MCH MCHC RDW Plt Count Lymph % (Auto) [place] % (Auto) Lymph # [place] # Seg Neutrophils % Seg Neuts % (Manual) Lymphocytes % (Manual) Monocytes % (Manual) Nucleated RBC % Seg Neutrophils # Seg Neutrophils # Man Lymphocytes # (Manual) Monocytes # (Manual) PT INR APTT D-Dimer Heparin Anti-Xa Level POC ABG pH POC ABG pCO2 POC ABG pO2 Sodium Potassium Chloride Carbon Dioxide BUN Creatinine Glucose POC Glucose 193 H 247 H 225 H Lactic Acid Calcium Phosphorus Total Bilirubin C-Reactive Protein NT-Pro-B Natriuret Pep Total Protein Albumin Urine WBC (Auto) Urine Creatinine 07/31/18 07/31/18 08/01/18 18:12 21:34 02:00 WBC RBC Hgb Hct MCV MCH MCHC RDW Plt Count Lymph % (Auto) [place] % (Auto) Lymph # [place] # Seg Neutrophils % Seg Neuts % (Manual) Lymphocytes % (Manual) Monocytes % (Manual) Nucleated RBC % Seg Neutrophils # Seg Neutrophils # Man Lymphocytes # (Manual) Monocytes # (Manual) PT INR APTT D-Dimer Heparin Anti-Xa Level POC ABG pH POC ABG pCO2 POC ABG pO2 Sodium Potassium Chloride Carbon Dioxide BUN Creatinine Glucose POC Glucose 197 H 204 H 239 H Lactic Acid Calcium Phosphorus Total Bilirubin C-Reactive Protein NT-Pro-B Natriuret Pep Total Protein Albumin Urine WBC (Auto) Urine Creatinine 08/01/18 08/01/18 08/01/18 04:13 04:37 05:29 WBC RBC Hgb Hct MCV MCH MCHC RDW Plt Count Lymph % (Auto) [place] % (Auto) Lymph # [place] # Seg Neutrophils % Seg Neuts % (Manual) Lymphocytes % (Manual) Monocytes % (Manual) Nucleated RBC % Seg Neutrophils # Seg Neutrophils # Man Lymphocytes # (Manual) Monocytes # (Manual) PT INR APTT D-Dimer Heparin Anti-Xa Level POC ABG pH 7.296 L POC ABG pCO2 81.9 H POC ABG pO2 190 H Sodium 150 H D Potassium Chloride Carbon Dioxide 37 H D BUN 37 H Creatinine 0.6 L Glucose 223 H POC Glucose 219 H Lactic Acid Calcium Phosphorus Total Bilirubin C-Reactive Protein NT-Pro-B Natriuret Pep Total Protein Albumin Urine WBC (Auto) Urine Creatinine 08/01/18 08/01/18 08/01/18 09:28 11:00 17:36 WBC RBC Hgb Hct MCV MCH MCHC RDW Plt Count Lymph % (Auto) [place] % (Auto) Lymph # [place] # Seg Neutrophils % Seg Neuts % (Manual) Lymphocytes % (Manual) Monocytes % (Manual) Nucleated RBC % Seg Neutrophils # Seg Neutrophils # Man Lymphocytes # (Manual) Monocytes # (Manual) PT INR APTT D-Dimer Heparin Anti-Xa Level POC ABG pH POC ABG pCO2 61.2 H POC ABG pO2 69 L Sodium Potassium Chloride Carbon Dioxide BUN Creatinine Glucose POC Glucose 185 H 234 H Lactic Acid Calcium Phosphorus Total Bilirubin C-Reactive Protein NT-Pro-B Natriuret Pep Total Protein Albumin Urine WBC (Auto) Urine Creatinine 08/01/18 08/02/18 08/02/18 21:54 00:08 00:44 WBC RBC Hgb Hct MCV MCH MCHC RDW Plt Count Lymph % (Auto) [place] % (Auto) Lymph # [place] # Seg Neutrophils % Seg Neuts % (Manual) Lymphocytes % (Manual) Monocytes % (Manual) Nucleated RBC % Seg Neutrophils # Seg Neutrophils # Man Lymphocytes # (Manual) Monocytes # (Manual) PT INR APTT D-Dimer Heparin Anti-Xa Level 0.77 H POC ABG pH POC ABG pCO2 66.4 H POC ABG pO2 64 L Sodium Potassium Chloride Carbon Dioxide BUN Creatinine Glucose POC Glucose 242 H Lactic Acid Calcium Phosphorus Total Bilirubin C-Reactive Protein NT-Pro-B Natriuret Pep Total Protein Albumin Urine WBC (Auto) Urine Creatinine 08/02/18 08/02/18 08/02/18 02:46 04:45 04:45 WBC RBC Hgb 10.7 L Hct 33.7 L MCV MCH MCHC RDW Plt Count Lymph % (Auto) [place] % (Auto) Lymph # [place] # Seg Neutrophils % Seg Neuts % (Manual) Lymphocytes % (Manual) Monocytes % (Manual) Nucleated RBC % Seg Neutrophils # Seg Neutrophils # Man Lymphocytes # (Manual) Monocytes # (Manual) PT INR APTT D-Dimer Heparin Anti-Xa Level POC ABG pH POC ABG pCO2 POC ABG pO2 Sodium 152 H Potassium Chloride 108.1 H Carbon Dioxide 39 H BUN 38 H Creatinine 0.6 L Glucose 226 H POC Glucose 206 H Lactic Acid Calcium Phosphorus Total Bilirubin C-Reactive Protein NT-Pro-B Natriuret Pep Total Protein Albumin Urine WBC (Auto) Urine Creatinine 08/02/18 08/02/18 08/02/18 05:31 09:46 14:23 WBC RBC Hgb Hct MCV MCH MCHC RDW Plt Count Lymph % (Auto) [place] % (Auto) Lymph # [place] # Seg Neutrophils % Seg Neuts % (Manual) Lymphocytes % (Manual) Monocytes % (Manual) Nucleated RBC % Seg Neutrophils # Seg Neutrophils # Man Lymphocytes # (Manual) Monocytes # (Manual) PT INR APTT D-Dimer Heparin Anti-Xa Level 0.91 H POC ABG pH POC ABG pCO2 POC ABG pO2 Sodium Potassium Chloride Carbon Dioxide BUN Creatinine Glucose POC Glucose 214 H 210 H Lactic Acid Calcium Phosphorus Total Bilirubin C-Reactive Protein NT-Pro-B Natriuret Pep Total Protein Albumin Urine WBC (Auto) Urine Creatinine 08/02/18 08/02/18 08/02/18 15:46 17:56 21:50 WBC RBC Hgb Hct MCV MCH MCHC RDW Plt Count Lymph % (Auto) [place] % (Auto) Lymph # [place] # Seg Neutrophils % Seg Neuts % (Manual) Lymphocytes % (Manual) Monocytes % (Manual) Nucleated RBC % Seg Neutrophils # Seg Neutrophils # Man Lymphocytes # (Manual) Monocytes # (Manual) PT INR APTT D-Dimer Heparin Anti-Xa Level 0.99 H POC ABG pH POC ABG pCO2 POC ABG pO2 Sodium Potassium Chloride Carbon Dioxide BUN Creatinine Glucose POC Glucose 252 H 222 H Lactic Acid Calcium Phosphorus Total Bilirubin C-Reactive Protein NT-Pro-B Natriuret Pep Total Protein Albumin Urine WBC (Auto) Urine Creatinine 08/03/18 08/03/18 08/03/18 02:18 05:21 05:25 WBC RBC Hgb Hct MCV MCH MCHC RDW Plt Count Lymph % (Auto) [place] % (Auto) Lymph # [place] # Seg Neutrophils % Seg Neuts % (Manual) Lymphocytes % (Manual) Monocytes % (Manual) Nucleated RBC % Seg Neutrophils # Seg Neutrophils # Man Lymphocytes # (Manual) Monocytes # (Manual) PT INR APTT D-Dimer Heparin Anti-Xa Level POC ABG pH POC ABG pCO2 POC ABG pO2 Sodium 151 H Potassium Chloride 107.3 H Carbon Dioxide 37 H BUN 42 H Creatinine 0.6 L Glucose 263 H POC Glucose 241 H 241 H Lactic Acid Calcium Phosphorus Total Bilirubin C-Reactive Protein NT-Pro-B Natriuret Pep Total Protein Albumin Urine WBC (Auto) Urine Creatinine 08/03/18 08/03/18 08/03/18 09:11 12:20 14:33 WBC RBC Hgb Hct MCV MCH MCHC RDW Plt Count Lymph % (Auto) [place] % (Auto) Lymph # [place] # Seg Neutrophils % Seg Neuts % (Manual) Lymphocytes % (Manual) Monocytes % (Manual) Nucleated RBC % Seg Neutrophils # Seg Neutrophils # Man Lymphocytes # (Manual) Monocytes # (Manual) PT INR APTT D-Dimer Heparin Anti-Xa Level POC ABG pH POC ABG pCO2 POC ABG pO2 Sodium Potassium Chloride Carbon Dioxide BUN Creatinine Glucose POC Glucose 272 H 234 H 247 H Lactic Acid Calcium Phosphorus Total Bilirubin C-Reactive Protein NT-Pro-B Natriuret Pep Total Protein Albumin Urine WBC (Auto) Urine Creatinine 08/03/18 08/03/18 08/04/18 16:48 21:21 01:56 WBC RBC Hgb Hct MCV MCH MCHC RDW Plt Count Lymph % (Auto) [place] % (Auto) Lymph # [place] # Seg Neutrophils % Seg Neuts % (Manual) Lymphocytes % (Manual) Monocytes % (Manual) Nucleated RBC % Seg Neutrophils # Seg Neutrophils # Man Lymphocytes # (Manual) Monocytes # (Manual) PT INR APTT D-Dimer Heparin Anti-Xa Level POC ABG pH POC ABG pCO2 POC ABG pO2 Sodium Potassium Chloride Carbon Dioxide BUN Creatinine Glucose POC Glucose 180 H 189 H Lactic Acid Calcium Phosphorus Total Bilirubin C-Reactive Protein 2.30 H NT-Pro-B Natriuret Pep Total Protein Albumin Urine WBC (Auto) Urine Creatinine 08/04/18 08/04/18 08/04/18 01:58 05:05 05:05 WBC 25.5 H RBC 3.31 L Hgb 10.8 L Hct 34.1 L MCV 103 H MCH 33 H MCHC RDW 16.0 H Plt Count Lymph % (Auto) [place] % (Auto) Lymph # [place] # Seg Neutrophils % Seg Neuts % (Manual) Lymphocytes % (Manual) 8.0 L Monocytes % (Manual) Nucleated RBC % 2.0 H Seg Neutrophils # Seg Neutrophils # Man 16.3 H Lymphocytes # (Manual) Monocytes # (Manual) 1.0 H PT INR APTT D-Dimer Heparin Anti-Xa Level 0.79 H POC ABG pH POC ABG pCO2 POC ABG pO2 Sodium 148 H Potassium Chloride Carbon Dioxide 36 H BUN 35 H Creatinine 0.6 L Glucose 160 H POC Glucose Lactic Acid Calcium Phosphorus Total Bilirubin C-Reactive Protein NT-Pro-B Natriuret Pep Total Protein Albumin Urine WBC (Auto) Urine Creatinine 08/04/18 08/04/18 08/04/18 05:24 05:33 08:46 WBC RBC Hgb Hct MCV MCH MCHC RDW Plt Count Lymph % (Auto) [place] % (Auto) Lymph # [place] # Seg Neutrophils % Seg Neuts % (Manual) Lymphocytes % (Manual) Monocytes % (Manual) Nucleated RBC % Seg Neutrophils # Seg Neutrophils # Man Lymphocytes # (Manual) Monocytes # (Manual) PT INR APTT D-Dimer Heparin Anti-Xa Level 0.76 H POC ABG pH POC ABG pCO2 65.7 H POC ABG pO2 63 L Sodium Potassium Chloride Carbon Dioxide BUN Creatinine Glucose POC Glucose 159 H Lactic Acid Calcium Phosphorus Total Bilirubin C-Reactive Protein NT-Pro-B Natriuret Pep Total Protein Albumin Urine WBC (Auto) Urine Creatinine 08/04/18 08/04/18 08/04/18 09:12 15:38 18:20 WBC RBC Hgb Hct MCV MCH MCHC RDW Plt Count Lymph % (Auto) [place] % (Auto) Lymph # [place] # Seg Neutrophils % Seg Neuts % (Manual) Lymphocytes % (Manual) Monocytes % (Manual) Nucleated RBC % Seg Neutrophils # Seg Neutrophils # Man Lymphocytes # (Manual) Monocytes # (Manual) PT INR APTT D-Dimer Heparin Anti-Xa Level POC ABG pH POC ABG pCO2 POC ABG pO2 Sodium Potassium Chloride Carbon Dioxide BUN Creatinine Glucose POC Glucose 140 H 267 H 252 H Lactic Acid Calcium Phosphorus Total Bilirubin C-Reactive Protein NT-Pro-B Natriuret Pep Total Protein Albumin Urine WBC (Auto) Urine Creatinine 08/04/18 08/05/18 08/05/18 21:17 02:51 04:36 WBC RBC Hgb Hct MCV MCH MCHC RDW Plt Count Lymph % (Auto) [place] % (Auto) Lymph # [place] # Seg Neutrophils % Seg Neuts % (Manual) Lymphocytes % (Manual) Monocytes % (Manual) Nucleated RBC % Seg Neutrophils # Seg Neutrophils # Man Lymphocytes # (Manual) Monocytes # (Manual) PT INR APTT D-Dimer Heparin Anti-Xa Level POC ABG pH POC ABG pCO2 POC ABG pO2 Sodium Potassium Chloride Carbon Dioxide BUN Creatinine Glucose POC Glucose 181 H 240 H 255 H Lactic Acid Calcium Phosphorus Total Bilirubin C-Reactive Protein NT-Pro-B Natriuret Pep Total Protein Albumin Urine WBC (Auto) Urine Creatinine 08/05/18 08/05/18 08/05/18 04:55 10:21 12:39 WBC 21.8 H RBC 3.18 L Hgb 10.3 L Hct 32.6 L MCV 103 H MCH 33 H MCHC RDW 16.3 H Plt Count Lymph % (Auto) [place] % (Auto) Lymph # [place] # Seg Neutrophils % Seg Neuts % (Manual) 88.0 H Lymphocytes % (Manual) 4.0 L Monocytes % (Manual) Nucleated RBC % Seg Neutrophils # Seg Neutrophils # Man 19.2 H Lymphocytes # (Manual) 0.9 L Monocytes # (Manual) PT INR APTT D-Dimer Heparin Anti-Xa Level POC ABG pH 7.506 H POC ABG pCO2 56.0 H POC ABG pO2 63 L Sodium Potassium Chloride Carbon Dioxide BUN Creatinine Glucose POC Glucose 227 H Lactic Acid Calcium Phosphorus Total Bilirubin C-Reactive Protein NT-Pro-B Natriuret Pep Total Protein Albumin Urine WBC (Auto) Urine Creatinine 08/05/18 08/05/18 08/05/18 12:39 14:10 17:30 WBC RBC Hgb Hct MCV MCH MCHC RDW Plt Count Lymph % (Auto) [place] % (Auto) Lymph # [place] # Seg Neutrophils % Seg Neuts % (Manual) Lymphocytes % (Manual) Monocytes % (Manual) Nucleated RBC % Seg Neutrophils # Seg Neutrophils # Man Lymphocytes # (Manual) Monocytes # (Manual) PT INR APTT D-Dimer Heparin Anti-Xa Level < 0.10 L POC ABG pH POC ABG pCO2 POC ABG pO2 Sodium Potassium Chloride 96.8 L Carbon Dioxide 38 H BUN 36 H Creatinine 0.6 L Glucose 218 H POC Glucose 221 H Lactic Acid Calcium Phosphorus Total Bilirubin C-Reactive Protein NT-Pro-B Natriuret Pep Total Protein Albumin Urine WBC (Auto) Urine Creatinine 08/05/18 08/05/18 08/06/18 18:32 23:32 02:26 WBC RBC Hgb Hct MCV MCH MCHC RDW Plt Count Lymph % (Auto) [place] % (Auto) Lymph # [place] # Seg Neutrophils % Seg Neuts % (Manual) Lymphocytes % (Manual) Monocytes % (Manual) Nucleated RBC % Seg Neutrophils # Seg Neutrophils # Man Lymphocytes # (Manual) Monocytes # (Manual) PT INR APTT D-Dimer Heparin Anti-Xa Level POC ABG pH POC ABG pCO2 POC ABG pO2 Sodium Potassium Chloride Carbon Dioxide BUN Creatinine Glucose POC Glucose 253 H 215 H 227 H Lactic Acid Calcium Phosphorus Total Bilirubin C-Reactive Protein NT-Pro-B Natriuret Pep Total Protein Albumin Urine WBC (Auto) Urine Creatinine 08/06/18 08/06/18 08/06/18 05:17 05:17 05:32 WBC 18.9 H RBC 3.06 L Hgb 10.2 L Hct 31.3 L MCV 102 H MCH 33 H MCHC RDW 16.1 H Plt Count Lymph % (Auto) [place] % (Auto) Lymph # [place] # Seg Neutrophils % Seg Neuts % (Manual) Lymphocytes % (Manual) Monocytes % (Manual) Nucleated RBC % Seg Neutrophils # Seg Neutrophils # Man Lymphocytes # (Manual) Monocytes # (Manual) PT INR APTT D-Dimer Heparin Anti-Xa Level POC ABG pH 7.468 H POC ABG pCO2 59.5 H POC ABG pO2 64 L Sodium Potassium Chloride Carbon Dioxide 37 H BUN 37 H Creatinine 0.5 L Glucose 226 H POC Glucose Lactic Acid Calcium Phosphorus Total Bilirubin C-Reactive Protein NT-Pro-B Natriuret Pep Total Protein Albumin Urine WBC (Auto) Urine Creatinine 08/06/18 08/06/18 08/06/18 10:11 15:03 17:48 WBC RBC Hgb Hct MCV MCH MCHC RDW Plt Count Lymph % (Auto) [place] % (Auto) Lymph # [place] # Seg Neutrophils % Seg Neuts % (Manual) Lymphocytes % (Manual) Monocytes % (Manual) Nucleated RBC % Seg Neutrophils # Seg Neutrophils # Man Lymphocytes # (Manual) Monocytes # (Manual) PT INR APTT D-Dimer Heparin Anti-Xa Level POC ABG pH POC ABG pCO2 POC ABG pO2 Sodium Potassium Chloride Carbon Dioxide BUN Creatinine Glucose POC Glucose 207 H 229 H 188 H Lactic Acid Calcium Phosphorus Total Bilirubin C-Reactive Protein NT-Pro-B Natriuret Pep Total Protein Albumin Urine WBC (Auto) Urine Creatinine 08/06/18 08/07/18 08/07/18 22:53 01:55 05:30 WBC RBC Hgb Hct MCV MCH MCHC RDW Plt Count Lymph % (Auto) [place] % (Auto) Lymph # [place] # Seg Neutrophils % Seg Neuts % (Manual) Lymphocytes % (Manual) Monocytes % (Manual) Nucleated RBC % Seg Neutrophils # Seg Neutrophils # Man Lymphocytes # (Manual) Monocytes # (Manual) PT INR APTT D-Dimer Heparin Anti-Xa Level POC ABG pH POC ABG pCO2 69.6 H POC ABG pO2 64 L Sodium Potassium Chloride Carbon Dioxide BUN Creatinine Glucose POC Glucose 146 H 143 H Lactic Acid Calcium Phosphorus Total Bilirubin C-Reactive Protein NT-Pro-B Natriuret Pep Total Protein Albumin Urine WBC (Auto) Urine Creatinine 08/07/18 08/07/18 08/07/18 09:59 14:16 15:08 WBC RBC Hgb 10.3 L Hct 32.2 L MCV MCH MCHC RDW Plt Count Lymph % (Auto) [place] % (Auto) Lymph # [place] # Seg Neutrophils % Seg Neuts % (Manual) Lymphocytes % (Manual) Monocytes % (Manual) Nucleated RBC % Seg Neutrophils # Seg Neutrophils # Man Lymphocytes # (Manual) Monocytes # (Manual) PT INR APTT D-Dimer Heparin Anti-Xa Level POC ABG pH POC ABG pCO2 POC ABG pO2 Sodium Potassium Chloride Carbon Dioxide BUN Creatinine Glucose POC Glucose 188 H 223 H Lactic Acid Calcium Phosphorus Total Bilirubin C-Reactive Protein NT-Pro-B Natriuret Pep Total Protein Albumin Urine WBC (Auto) Urine Creatinine 08/07/18 08/07/1808/07/18 15:08 17:39 22:04 WBC RBC Hgb Hct MCV MCH MCHC RDW Plt Count Lymph % (Auto) [place] % (Auto) Lymph # [place] # Seg Neutrophils % Seg Neuts % (Manual) Lymphocytes % (Manual) Monocytes % (Manual) Nucleated RBC % Seg Neutrophils # Seg Neutrophils # Man Lymphocytes # (Manual) Monocytes # (Manual) PT INR APTT 23.2 L D-Dimer Heparin Anti-Xa Level POC ABG pH POC ABG pCO2 POC ABG pO2 Sodium Potassium Chloride Carbon Dioxide BUN Creatinine Glucose POC Glucose 208 H 163 H Lactic Acid Calcium Phosphorus Total Bilirubin C-Reactive Protein NT-Pro-B Natriuret Pep Total Protein Albumin Urine WBC (Auto) Urine Creatinine 08/07/18 08/08/18 08/08/18 22:30 01:57 02:09 WBC 14.6 H RBC 2.88 L Hgb 9.5 L Hct 29.9 L MCV 104 H MCH 33 H MCHC RDW 16.8 H Plt Count Lymph % (Auto) [place] % (Auto) Lymph # [place] # Seg Neutrophils % Seg Neuts % (Manual) 73.0 H Lymphocytes % (Manual) 9.0 L Monocytes % (Manual) 10.0 H Nucleated RBC % Seg Neutrophils # Seg Neutrophils # Man 10.7 H Lymphocytes # (Manual) Monocytes # (Manual) 1.5 H PT INR APTT D-Dimer Heparin Anti-Xa Level 0.25 L POC ABG pH POC ABG pCO2 POC ABG pO2 Sodium Potassium Chloride Carbon Dioxide BUN Creatinine Glucose POC Glucose 120 H Lactic Acid Calcium Phosphorus Total Bilirubin C-Reactive Protein NT-Pro-B Natriuret Pep Total Protein Albumin Urine WBC (Auto) Urine Creatinine 08/08/18 08/08/18 08/08/18 02:09 04:58 05:19 WBC RBC Hgb Hct MCV MCH MCHC RDW Plt Count Lymph % (Auto) [place] % (Auto) Lymph # [place] # Seg Neutrophils % Seg Neuts % (Manual) Lymphocytes % (Manual) Monocytes % (Manual) Nucleated RBC % Seg Neutrophils # Seg Neutrophils # Man Lymphocytes # (Manual) Monocytes # (Manual) PT INR APTT D-Dimer Heparin Anti-Xa Level POC ABG pH 7.461 H POC ABG pCO2 57.3 H POC ABG pO2 62 L Sodium Potassium Chloride Carbon Dioxide 39 H BUN 29 H Creatinine 0.5 L Glucose 124 H POC Glucose 139 H Lactic Acid Calcium Phosphorus Total Bilirubin C-Reactive Protein NT-Pro-B Natriuret Pep Total Protein Albumin Urine WBC (Auto) Urine Creatinine 08/08/18 08/08/18 08/08/18 10:22 14:52 16:12 WBC RBC Hgb Hct MCV MCH MCHC RDW Plt Count Lymph % (Auto) [place] % (Auto) Lymph # [place] # Seg Neutrophils % Seg Neuts % (Manual) Lymphocytes % (Manual) Monocytes % (Manual) Nucleated RBC % Seg Neutrophils # Seg Neutrophils # Man Lymphocytes # (Manual) Monocytes # (Manual) PT INR APTT D-Dimer Heparin Anti-Xa Level POC ABG pH POC ABG pCO2 POC ABG pO2 Sodium Potassium Chloride Carbon Dioxide BUN Creatinine Glucose POC Glucose 169 H 149 H 136 H Lactic Acid Calcium Phosphorus Total Bilirubin C-Reactive Protein NT-Pro-B Natriuret Pep Total Protein Albumin Urine WBC (Auto) Urine Creatinine 08/09/18 08/09/18 08/09/18 02:26 03:52 03:52 WBC 15.9 H RBC 2.87 L Hgb 9.6 L Hct 30.7 L MCV 107 H MCH 34 H MCHC 31 L RDW 17.8 H Plt Count Lymph % (Auto) 3.9 L [place] % (Auto) 8.1 H Lymph # 0.6 L [place] # 1.3 H Seg Neutrophils % 87.1 H Seg Neuts % (Manual) Lymphocytes % (Manual) Monocytes % (Manual) Nucleated RBC % Seg Neutrophils # 13.9 H Seg Neutrophils # Man Lymphocytes # (Manual) Monocytes # (Manual) PT INR APTT D-Dimer Heparin Anti-Xa Level 0.25 L POC ABG pH POC ABG pCO2 POC ABG pO2 Sodium Potassium Chloride Carbon Dioxide BUN Creatinine Glucose POC Glucose 126 H Lactic Acid Calcium Phosphorus Total Bilirubin C-Reactive Protein NT-Pro-B Natriuret Pep Total Protein Albumin Urine WBC (Auto) Urine Creatinine 08/09/18 08/09/18 08/09/18 03:52 05:34 06:48 WBC RBC Hgb Hct MCV MCH MCHC RDW Plt Count Lymph % (Auto) [place] % (Auto) Lymph # [place] # Seg Neutrophils % Seg Neuts % (Manual) Lymphocytes % (Manual) Monocytes % (Manual) Nucleated RBC % Seg Neutrophils # Seg Neutrophils # Man Lymphocytes # (Manual) Monocytes # (Manual) PT INR APTT D-Dimer Heparin Anti-Xa Level POC ABG pH POC ABG pCO2 57.5 H POC ABG pO2 58 L Sodium Potassium Chloride Carbon Dioxide 39 H BUN 26 H Creatinine 0.5 L Glucose 128 H POC Glucose 171 H Lactic Acid Calcium Phosphorus Total Bilirubin C-Reactive Protein NT-Pro-B Natriuret Pep Total Protein Albumin Urine WBC (Auto) Urine Creatinine 08/09/18 08/09/18 08/09/18 09:28 09:36 13:44 WBC RBC Hgb Hct MCV MCH MCHC RDW Plt Count Lymph % (Auto) [place] % (Auto) Lymph # [place] # Seg Neutrophils % Seg Neuts % (Manual) Lymphocytes % (Manual) Monocytes % (Manual) Nucleated RBC % Seg Neutrophils # Seg Neutrophils # Man Lymphocytes # (Manual) Monocytes # (Manual) PT INR APTT D-Dimer Heparin Anti-Xa Level 0.26 L POC ABG pH POC ABG pCO2 POC ABG pO2 Sodium Potassium Chloride Carbon Dioxide BUN Creatinine Glucose POC Glucose 183 H 184 H Lactic Acid Calcium Phosphorus Total Bilirubin C-Reactive Protein NT-Pro-B Natriuret Pep Total Protein Albumin Urine WBC (Auto) Urine Creatinine 08/09/18 08/10/18 08/10/18 17:55 04:49 05:20 WBC RBC Hgb Hct MCV MCH MCHC RDW Plt Count Lymph % (Auto) [place] % (Auto) Lymph # [place] # Seg Neutrophils % Seg Neuts % (Manual) Lymphocytes % (Manual) Monocytes % (Manual) Nucleated RBC % Seg Neutrophils # Seg Neutrophils # Man Lymphocytes # (Manual) Monocytes # (Manual) PT INR APTT D-Dimer Heparin Anti-Xa Level POC ABG pH POC ABG pCO2 59.9 H POC ABG pO2 59 L Sodium Potassium Chloride Carbon Dioxide BUN Creatinine Glucose POC Glucose 148 H 59 L Lactic Acid Calcium Phosphorus Total Bilirubin C-Reactive Protein NT-Pro-B Natriuret Pep Total Protein Albumin Urine WBC (Auto) Urine Creatinine 08/10/18 08/10/18 08/10/18 05:53 17:12 21:17 WBC RBC Hgb Hct MCV MCH MCHC RDW Plt Count Lymph % (Auto) [place] % (Auto) Lymph # [place] # Seg Neutrophils % Seg Neuts % (Manual) Lymphocytes % (Manual) Monocytes % (Manual) Nucleated RBC % Seg Neutrophils # Seg Neutrophils # Man Lymphocytes # (Manual) Monocytes # (Manual) PT INR APTT D-Dimer Heparin Anti-Xa Level POC ABG pH POC ABG pCO2 POC ABG pO2 Sodium Potassium Chloride Carbon Dioxide BUN Creatinine Glucose POC Glucose 128 H 110 H 109 H Lactic Acid Calcium Phosphorus Total Bilirubin C-Reactive Protein NT-Pro-B Natriuret Pep Total Protein Albumin Urine WBC (Auto) Urine Creatinine 08/11/18 08/11/18 08/11/18 00:54 02:28 04:17 WBC RBC Hgb 7.8 L Hct 24.1 L D MCV MCH MCHC RDW Plt Count Lymph % (Auto) [place] % (Auto) Lymph # [place] # Seg Neutrophils % Seg Neuts % (Manual) Lymphocytes % (Manual) Monocytes % (Manual) Nucleated RBC % Seg Neutrophils # Seg Neutrophils # Man Lymphocytes # (Manual) Monocytes # (Manual) PT INR APTT D-Dimer Heparin Anti-Xa Level 0.19 L POC ABG pH POC ABG pCO2 POC ABG pO2 Sodium Potassium Chloride Carbon Dioxide BUN Creatinine Glucose POC Glucose 124 H Lactic Acid Calcium Phosphorus Total Bilirubin C-Reactive Protein NT-Pro-B Natriuret Pep Total Protein Albumin Urine WBC (Auto) Urine Creatinine 08/11/18 08/11/18 08/11/18 05:10 07:42 10:27 WBC RBC Hgb Hct MCV MCH MCHC RDW Plt Count Lymph % (Auto) [place] % (Auto) Lymph # [place] # Seg Neutrophils % Seg Neuts % (Manual) Lymphocytes % (Manual) Monocytes % (Manual) Nucleated RBC % Seg Neutrophils # Seg Neutrophils # Man Lymphocytes # (Manual) Monocytes # (Manual) PT INR APTT D-Dimer Heparin Anti-Xa Level 0.20 L POC ABG pH POC ABG pCO2 POC ABG pO2 Sodium Potassium Chloride Carbon Dioxide BUN Creatinine Glucose POC Glucose 150 H 156 H Lactic Acid Calcium Phosphorus Total Bilirubin C-Reactive Protein NT-Pro-B Natriuret Pep Total Protein Albumin Urine WBC (Auto) Urine Creatinine 08/11/18 08/11/18 08/11/18 13:54 15:06 18:13 WBC RBC Hgb Hct MCV MCH MCHC RDW Plt Count Lymph % (Auto) [place] % (Auto) Lymph # [place] # Seg Neutrophils % Seg Neuts % (Manual) Lymphocytes % (Manual) Monocytes % (Manual) Nucleated RBC % Seg Neutrophils # Seg Neutrophils # Man Lymphocytes # (Manual) Monocytes # (Manual) PT INR APTT D-Dimer Heparin Anti-Xa Level POC ABG pH 7.471 H POC ABG pCO2 45.5 H POC ABG pO2 79 L Sodium Potassium Chloride Carbon Dioxide BUN Creatinine Glucose POC Glucose 177 H 143 H Lactic Acid Calcium Phosphorus Total Bilirubin C-Reactive Protein NT-Pro-B Natriuret Pep Total Protein Albumin Urine WBC (Auto) Urine Creatinine 08/11/18 08/11/18 08/11/18 18:33 21:22 Unknown WBC RBC Hgb Hct MCV MCH MCHC RDW Plt Count Lymph % (Auto) [place] % (Auto) Lymph # [place] # Seg Neutrophils % Seg Neuts % (Manual) Lymphocytes % (Manual) Monocytes % (Manual) Nucleated RBC % Seg Neutrophils # Seg Neutrophils # Man Lymphocytes # (Manual) Monocytes # (Manual) PT INR APTT D-Dimer Heparin Anti-Xa Level 0.29 L POC ABG pH POC ABG pCO2 POC ABG pO2 Sodium 136 L Potassium Chloride 96.5 L Carbon Dioxide 32 H D BUN Creatinine 0.5 L Glucose 186 H POC Glucose 151 H Lactic Acid Calcium Phosphorus Total Bilirubin C-Reactive Protein NT-Pro-B Natriuret Pep Total Protein Albumin Urine WBC (Auto) Urine Creatinine 08/11/18 08/12/18 08/12/18 Unknown 02:09 05:29 WBC 12.1 H RBC 2.50 L Hgb 8.2 L Hct 25.7 L MCV 103 H MCH 33 H MCHC RDW 17.0 H Plt Count Lymph % (Auto) 5.1 L [place] % (Auto) 9.5 H Lymph # 0.6 L [place] # 1.2 H Seg Neutrophils % 84.8 H Seg Neuts % (Manual) Lymphocytes % (Manual) Monocytes % (Manual) Nucleated RBC % Seg Neutrophils # 10.3 H Seg Neutrophils # Man Lymphocytes # (Manual) Monocytes # (Manual) PT INR APTT D-Dimer Heparin Anti-Xa Level POC ABG pH POC ABG pCO2 POC ABG pO2 Sodium Potassium Chloride Carbon Dioxide BUN Creatinine Glucose POC Glucose 159 H 136 H Lactic Acid Calcium Phosphorus Total Bilirubin C-Reactive Protein NT-Pro-B Natriuret Pep Total Protein Albumin Urine WBC (Auto) Urine Creatinine 08/12/18 08/12/18 08/12/18 07:33 09:59 13:59 WBC RBC Hgb Hct MCV MCH MCHC RDW Plt Count Lymph % (Auto) [place] % (Auto) Lymph # [place] # Seg Neutrophils % Seg Neuts % (Manual) Lymphocytes % (Manual) Monocytes % (Manual) Nucleated RBC % Seg Neutrophils # Seg Neutrophils # Man Lymphocytes # (Manual) Monocytes # (Manual) PT INR APTT D-Dimer Heparin Anti-Xa Level POC ABG pH POC ABG pCO2 POC ABG pO2 Sodium Potassium Chloride Carbon Dioxide BUN Creatinine Glucose POC Glucose 138 H 157 H 167 H Lactic Acid Calcium Phosphorus Total Bilirubin C-Reactive Protein NT-Pro-B Natriuret Pep Total Protein Albumin Urine WBC (Auto) Urine Creatinine 08/12/18 08/12/18 08/12/18 14:31 14:56 17:39 WBC RBC Hgb Hct MCV MCH MCHC RDW Plt Count Lymph % (Auto) [place] % (Auto) Lymph # [place] # Seg Neutrophils % Seg Neuts % (Manual) Lymphocytes % (Manual) Monocytes % (Manual) Nucleated RBC % Seg Neutrophils # Seg Neutrophils # Man Lymphocytes # (Manual) Monocytes # (Manual) PT INR APTT D-Dimer Heparin Anti-Xa Level 1.18 H POC ABG pH 7.466 H POC ABG pCO2 POC ABG pO2 58 L Sodium Potassium Chloride Carbon Dioxide BUN Creatinine Glucose POC Glucose 168 H Lactic Acid Calcium Phosphorus Total Bilirubin C-Reactive Protein NT-Pro-B Natriuret Pep Total Protein Albumin Urine WBC (Auto) Urine Creatinine 08/12/18 08/13/18 08/13/18 21:38 02:17 05:20 WBC RBC Hgb 8.0 L Hct 24.5 L MCV MCH MCHC RDW Plt Count Lymph % (Auto) [place] % (Auto) Lymph # [place] # Seg Neutrophils % Seg Neuts % (Manual) Lymphocytes % (Manual) Monocytes % (Manual) Nucleated RBC % Seg Neutrophils # Seg Neutrophils # Man Lymphocytes # (Manual) Monocytes # (Manual) PT INR APTT D-Dimer Heparin Anti-Xa Level POC ABG pH POC ABG pCO2 POC ABG pO2 Sodium Potassium Chloride Carbon Dioxide BUN Creatinine Glucose POC Glucose 168 H 157 H Lactic Acid Calcium Phosphorus Total Bilirubin C-Reactive Protein NT-Pro-B Natriuret Pep Total Protein Albumin Urine WBC (Auto) Urine Creatinine 08/13/18 08/13/18 08/13/18 09:28 10:07 14:09 WBC RBC Hgb Hct MCV MCH MCHC RDW Plt Count Lymph % (Auto) [place] % (Auto) Lymph # [place] # Seg Neutrophils % Seg Neuts % (Manual) Lymphocytes % (Manual) Monocytes % (Manual) Nucleated RBC % Seg Neutrophils # Seg Neutrophils # Man Lymphocytes # (Manual) Monocytes # (Manual) PT INR APTT D-Dimer Heparin Anti-Xa Level POC ABG pH 7.453 H POC ABG pCO2 47.5 H POC ABG pO2 Sodium Potassium Chloride Carbon Dioxide BUN Creatinine Glucose POC Glucose 177 H 178 H Lactic Acid Calcium Phosphorus Total Bilirubin C-Reactive Protein NT-Pro-B Natriuret Pep Total Protein Albumin Urine WBC (Auto) Urine Creatinine 08/13/18 08/13/18 08/14/18 17:33 21:28 01:58 WBC RBC Hgb Hct MCV MCH MCHC RDW Plt Count Lymph % (Auto) [place] % (Auto) Lymph # [place] # Seg Neutrophils % Seg Neuts % (Manual) Lymphocytes % (Manual) Monocytes % (Manual) Nucleated RBC % Seg Neutrophils # Seg Neutrophils # Man Lymphocytes # (Manual) Monocytes # (Manual) PT INR APTT D-Dimer Heparin Anti-Xa Level POC ABG pH POC ABG pCO2 POC ABG pO2 Sodium Potassium Chloride Carbon Dioxide BUN Creatinine Glucose POC Glucose 130 H 145 H 161 H Lactic Acid Calcium Phosphorus Total Bilirubin C-Reactive Protein NT-Pro-B Natriuret Pep Total Protein Albumin Urine WBC (Auto) Urine Creatinine 08/14/18 08/14/18 08/14/18 05:22 06:10 09:59 WBC RBC Hgb Hct MCV MCH MCHC RDW Plt Count Lymph % (Auto) [place] % (Auto) Lymph # [place] # Seg Neutrophils % Seg Neuts % (Manual) Lymphocytes % (Manual) Monocytes % (Manual) Nucleated RBC % Seg Neutrophils # Seg Neutrophils # Man Lymphocytes # (Manual) Monocytes # (Manual) PT INR APTT D-Dimer Heparin Anti-Xa Level POC ABG pH POC ABG pCO2 POC ABG pO2 Sodium Potassium Chloride Carbon Dioxide BUN Creatinine 0.5 L Glucose 125 H POC Glucose 117 H 107 H Lactic Acid Calcium Phosphorus Total Bilirubin C-Reactive Protein NT-Pro-B Natriuret Pep Total Protein Albumin Urine WBC (Auto) Urine Creatinine 08/14/18 08/14/18 08/14/18 14:04 17:49 21:27 WBC RBC Hgb Hct MCV MCH MCHC RDW Plt Count Lymph % (Auto) [place] % (Auto) Lymph # [place] # Seg Neutrophils % Seg Neuts % (Manual) Lymphocytes % (Manual) Monocytes % (Manual) Nucleated RBC % Seg Neutrophils # Seg Neutrophils # Man Lymphocytes # (Manual) Monocytes # (Manual) PT INR APTT D-Dimer Heparin Anti-Xa Level POC ABG pH POC ABG pCO2 POC ABG pO2 Sodium Potassium Chloride Carbon Dioxide BUN Creatinine Glucose POC Glucose 137 H 150 H 149 H Lactic Acid Calcium Phosphorus Total Bilirubin C-Reactive Protein NT-Pro-B Natriuret Pep Total Protein Albumin Urine WBC (Auto) Urine Creatinine 08/14/18 08/15/18 08/15/18 21:55 01:50 03:12 WBC 13.3 H RBC 2.79 L Hgb 9.3 L 8.4 L Hct 28.6 L 25.7 L MCV 102 H MCH 33 H MCHC RDW 16.6 H Plt Count Lymph % (Auto) [place] % (Auto) Lymph # [place] # Seg Neutrophils % Seg Neuts % (Manual) Lymphocytes % (Manual) Monocytes % (Manual) Nucleated RBC % Seg Neutrophils # Seg Neutrophils # Man Lymphocytes # (Manual) Monocytes # (Manual) PT INR APTT D-Dimer Heparin Anti-Xa Level POC ABG pH POC ABG pCO2 POC ABG pO2 Sodium Potassium Chloride Carbon Dioxide BUN Creatinine Glucose POC Glucose 186 H Lactic Acid Calcium Phosphorus Total Bilirubin C-Reactive Protein NT-Pro-B Natriuret Pep Total Protein Albumin Urine WBC (Auto) Urine Creatinine 08/15/18 08/15/18 08/15/18 09:55 11:45 13:47 WBC RBC 2.38 L Hgb 8.0 L Hct 24.5 L MCV 103 H MCH 34 H MCHC RDW 16.8 H Plt Count Lymph % (Auto) 4.9 L [place] % (Auto) Lymph # 0.5 L [place] # Seg Neutrophils % 88.1 H Seg Neuts % (Manual) Lymphocytes % (Manual) Monocytes % (Manual) Nucleated RBC % Seg Neutrophils # 9.6 H Seg Neutrophils # Man Lymphocytes # (Manual) Monocytes # (Manual) PT INR APTT D-Dimer Heparin Anti-Xa Level POC ABG pH POC ABG pCO2 POC ABG pO2 Sodium Potassium Chloride Carbon Dioxide BUN Creatinine Glucose POC Glucose 133 H 142 H Lactic Acid Calcium Phosphorus Total Bilirubin C-Reactive Protein NT-Pro-B Natriuret Pep Total Protein Albumin Urine WBC (Auto) Urine Creatinine 08/15/18 08/15/18 08/16/18 17:54 21:58 02:20 WBC RBC Hgb Hct MCV MCH MCHC RDW Plt Count Lymph % (Auto) [place] % (Auto) Lymph # [place] # Seg Neutrophils % Seg Neuts % (Manual) Lymphocytes % (Manual) Monocytes % (Manual) Nucleated RBC % Seg Neutrophils # Seg Neutrophils # Man Lymphocytes # (Manual) Monocytes # (Manual) PT INR APTT D-Dimer Heparin Anti-Xa Level POC ABG pH POC ABG pCO2 POC ABG pO2 Sodium Potassium Chloride Carbon Dioxide BUN Creatinine Glucose POC Glucose 131 H 157 H 108 H Lactic Acid Calcium Phosphorus Total Bilirubin C-Reactive Protein NT-Pro-B Natriuret Pep Total Protein Albumin Urine WBC (Auto) Urine Creatinine 08/16/18 08/16/18 08/16/18 05:16 10:20 10:23 WBC RBC Hgb Hct MCV MCH MCHC RDW Plt Count Lymph % (Auto) [place] % (Auto) Lymph # [place] # Seg Neutrophils % Seg Neuts % (Manual) Lymphocytes % (Manual) Monocytes % (Manual) Nucleated RBC % Seg Neutrophils # Seg Neutrophils # Man Lymphocytes # (Manual) Monocytes # (Manual) PT INR APTT D-Dimer Heparin Anti-Xa Level POC ABG pH POC ABG pCO2 POC ABG pO2 63 L Sodium Potassium Chloride Carbon Dioxide BUN Creatinine Glucose POC Glucose 115 H 146 H Lactic Acid Calcium Phosphorus Total Bilirubin C-Reactive Protein NT-Pro-B Natriuret Pep Total Protein Albumin Urine WBC (Auto) Urine Creatinine 08/16/18 08/16/18 08/16/18 11:06 14:05 18:04 WBC RBC 2.82 L Hgb 9.2 L Hct 28.8 L MCV 102 H MCH 33 H MCHC RDW 16.4 H Plt Count Lymph % (Auto) 3.8 L [place] % (Auto) Lymph # 0.4 L [place] # Seg Neutrophils % 89.5 H Seg Neuts % (Manual) Lymphocytes % (Manual) Monocytes % (Manual) Nucleated RBC % Seg Neutrophils # 9.1 H Seg Neutrophils # Man Lymphocytes # (Manual) Monocytes # (Manual) PT INR APTT D-Dimer Heparin Anti-Xa Level POC ABG pH POC ABG pCO2 POC ABG pO2 Sodium Potassium Chloride Carbon Dioxide BUN Creatinine Glucose POC Glucose 139 H 144 H Lactic Acid Calcium Phosphorus Total Bilirubin C-Reactive Protein NT-Pro-B Natriuret Pep Total Protein Albumin Urine WBC (Auto) Urine Creatinine 08/16/18 08/17/18 08/17/18 21:50 03:51 04:59 WBC RBC Hgb Hct MCV MCH MCHC RDW Plt Count Lymph % (Auto) [place] % (Auto) Lymph # [place] # Seg Neutrophils % Seg Neuts % (Manual) Lymphocytes % (Manual) Monocytes % (Manual) Nucleated RBC % Seg Neutrophils # Seg Neutrophils # Man Lymphocytes # (Manual) Monocytes # (Manual) PT INR APTT D-Dimer Heparin Anti-Xa Level POC ABG pH POC ABG pCO2 POC ABG pO2 Sodium Potassium Chloride Carbon Dioxide BUN Creatinine 0.5 L Glucose 134 H POC Glucose 147 H 135 H Lactic Acid Calcium Phosphorus Total Bilirubin C-Reactive Protein NT-Pro-B Natriuret Pep Total Protein Albumin Urine WBC (Auto) Urine Creatinine 08/17/18 08/17/18 08/17/18 12:07 18:04 21:38 WBC RBC Hgb Hct MCV MCH MCHC RDW Plt Count Lymph % (Auto) [place] % (Auto) Lymph # [place] # Seg Neutrophils % Seg Neuts % (Manual) Lymphocytes % (Manual) Monocytes % (Manual) Nucleated RBC % Seg Neutrophils # Seg Neutrophils # Man Lymphocytes # (Manual) Monocytes # (Manual) PT INR APTT D-Dimer Heparin Anti-Xa Level POC ABG pH POC ABG pCO2 55.6 H POC ABG pO2 65 L Sodium Potassium Chloride Carbon Dioxide BUN Creatinine Glucose POC Glucose 160 H 115 H Lactic Acid Calcium Phosphorus Total Bilirubin C-Reactive Protein NT-Pro-B Natriuret Pep Total Protein Albumin Urine WBC (Auto) Urine Creatinine 08/17/18 08/18/18 08/18/18 21:47 01:42 05:42 WBC RBC Hgb Hct MCV MCH MCHC RDW Plt Count Lymph % (Auto) [place] % (Auto) Lymph # [place] # Seg Neutrophils % Seg Neuts % (Manual) Lymphocytes % (Manual) Monocytes % (Manual) Nucleated RBC % Seg Neutrophils # Seg Neutrophils # Man Lymphocytes # (Manual) Monocytes # (Manual) PT INR APTT D-Dimer Heparin Anti-Xa Level POC ABG pH POC ABG pCO2 POC ABG pO2 Sodium Potassium Chloride Carbon Dioxide BUN Creatinine Glucose POC Glucose 110 H 124 H 127 H Lactic Acid Calcium Phosphorus Total Bilirubin C-Reactive Protein NT-Pro-B Natriuret Pep Total Protein Albumin Urine WBC (Auto) Urine Creatinine 08/18/18 08/18/18 08/18/18 09:51 14:37 21:37 WBC RBC Hgb Hct MCV MCH MCHC RDW Plt Count Lymph % (Auto) [place] % (Auto) Lymph # [place] # Seg Neutrophils % Seg Neuts % (Manual) Lymphocytes % (Manual) Monocytes % (Manual) Nucleated RBC % Seg Neutrophils # Seg Neutrophils # Man Lymphocytes # (Manual) Monocytes # (Manual) PT INR APTT D-Dimer Heparin Anti-Xa Level POC ABG pH POC ABG pCO2 POC ABG pO2 Sodium Potassium Chloride Carbon Dioxide BUN Creatinine Glucose POC Glucose 162 H 130 H 133 H Lactic Acid Calcium Phosphorus Total Bilirubin C-Reactive Protein NT-Pro-B Natriuret Pep Total Protein Albumin Urine WBC (Auto) Urine Creatinine 08/19/18 08/19/18 08/19/18 01:47 04:55 04:55 WBC RBC 2.86 L Hgb 9.4 L Hct 28.6 L MCV 100 H MCH 33 H MCHC RDW 16.6 H Plt Count Lymph % (Auto) [place] % (Auto) Lymph # [place] # Seg Neutrophils % Seg Neuts % (Manual) Lymphocytes % (Manual) Monocytes % (Manual) Nucleated RBC % Seg Neutrophils # Seg Neutrophils # Man Lymphocytes # (Manual) Monocytes # (Manual) PT INR APTT D-Dimer Heparin Anti-Xa Level POC ABG pH POC ABG pCO2 POC ABG pO2 Sodium Potassium Chloride 97.8 L Carbon Dioxide 32 H BUN Creatinine 0.4 L Glucose 116 H POC Glucose 136 H Lactic Acid Calcium Phosphorus Total Bilirubin C-Reactive Protein NT-Pro-B Natriuret Pep Total Protein Albumin Urine WBC (Auto) Urine Creatinine 08/19/18 08/19/18 08/19/18 05:16 05:41 11:49 WBC RBC Hgb Hct MCV MCH MCHC RDW Plt Count Lymph % (Auto) [place] % (Auto) Lymph # [place] # Seg Neutrophils % Seg Neuts % (Manual) Lymphocytes % (Manual) Monocytes % (Manual) Nucleated RBC % Seg Neutrophils # Seg Neutrophils # Man Lymphocytes # (Manual) Monocytes # (Manual) PT INR APTT D-Dimer Heparin Anti-Xa Level POC ABG pH POC ABG pCO2 57.5 H POC ABG pO2 65 L Sodium Potassium Chloride Carbon Dioxide BUN Creatinine Glucose POC Glucose 119 H 143 H Lactic Acid Calcium Phosphorus Total Bilirubin C-Reactive Protein NT-Pro-B Natriuret Pep Total Protein Albumin Urine WBC (Auto) Urine Creatinine 08/19/18 08/19/18 08/20/18 15:13 21:45 06:03 WBC RBC Hgb Hct MCV MCH MCHC RDW Plt Count Lymph % (Auto) [place] % (Auto) Lymph # [place] # Seg Neutrophils % Seg Neuts % (Manual) Lymphocytes % (Manual) Monocytes % (Manual) Nucleated RBC % Seg Neutrophils # Seg Neutrophils # Man Lymphocytes # (Manual) Monocytes # (Manual) PT INR APTT D-Dimer Heparin Anti-Xa Level POC ABG pH POC ABG pCO2 POC ABG pO2 Sodium Potassium Chloride Carbon Dioxide BUN Creatinine Glucose POC Glucose 155 H 127 H 160 H Lactic Acid Calcium Phosphorus Total Bilirubin C-Reactive Protein NT-Pro-B Natriuret Pep Total Protein Albumin Urine WBC (Auto) Urine Creatinine 08/20/18 08/20/18 08/21/18 12:00 22:10 05:32 WBC RBC Hgb Hct MCV MCH MCHC RDW Plt Count Lymph % (Auto) [place] % (Auto) Lymph # [place] # Seg Neutrophils % Seg Neuts % (Manual) Lymphocytes % (Manual) Monocytes % (Manual) Nucleated RBC % Seg Neutrophils # Seg Neutrophils # Man Lymphocytes # (Manual) Monocytes # (Manual) PT INR APTT D-Dimer Heparin Anti-Xa Level POC ABG pH POC ABG pCO2 POC ABG pO2 Sodium Potassium Chloride Carbon Dioxide BUN Creatinine Glucose POC Glucose 143 H 125 H 121 H Lactic Acid Calcium Phosphorus Total Bilirubin C-Reactive Protein NT-Pro-B Natriuret Pep Total Protein Albumin Urine WBC (Auto) Urine Creatinine 08/21/18 08/21/18 08/22/18 17:37 22:19 05:30 WBC RBC Hgb Hct MCV MCH MCHC RDW Plt Count Lymph % (Auto) [place] % (Auto) Lymph # [place] # Seg Neutrophils % Seg Neuts % (Manual) Lymphocytes % (Manual) Monocytes % (Manual) Nucleated RBC % Seg Neutrophils # Seg Neutrophils # Man Lymphocytes # (Manual) Monocytes # (Manual) PT INR APTT D-Dimer Heparin Anti-Xa Level POC ABG pH POC ABG pCO2 POC ABG pO2 Sodium Potassium Chloride Carbon Dioxide BUN Creatinine Glucose POC Glucose 126 H 129 H 147 H Lactic Acid Calcium Phosphorus Total Bilirubin C-Reactive Protein NT-Pro-B Natriuret Pep Total Protein Albumin Urine WBC (Auto) Urine Creatinine 08/22/18 08/22/18 08/23/18 16:22 21:31 04:37 WBC RBC Hgb Hct MCV MCH MCHC RDW Plt Count Lymph % (Auto) [place] % (Auto) Lymph # [place] # Seg Neutrophils % Seg Neuts % (Manual) Lymphocytes % (Manual) Monocytes % (Manual) Nucleated RBC % Seg Neutrophils # Seg Neutrophils # Man Lymphocytes # (Manual) Monocytes # (Manual) PT INR APTT D-Dimer Heparin Anti-Xa Level POC ABG pH POC ABG pCO2 POC ABG pO2 Sodium Potassium Chloride Carbon Dioxide BUN Creatinine 0.5 L Glucose 141 H POC Glucose 141 H 107 H Lactic Acid Calcium Phosphorus Total Bilirubin C-Reactive Protein NT-Pro-B Natriuret Pep Total Protein Albumin Urine WBC (Auto) Urine Creatinine 08/23/18 08/24/18 08/24/18 04:37 05:31 13:56 WBC RBC 2.94 L Hgb 9.7 L Hct 30.0 L MCV 102 H MCH 33 H MCHC RDW 17.0 H Plt Count 509 H Lymph % (Auto) [place] % (Auto) Lymph # [place] # Seg Neutrophils % Seg Neuts % (Manual) Lymphocytes % (Manual) Monocytes % (Manual) Nucleated RBC % Seg Neutrophils # Seg Neutrophils # Man Lymphocytes # (Manual) Monocytes # (Manual) PT INR APTT D-Dimer Heparin Anti-Xa Level POC ABG pH POC ABG pCO2 POC ABG pO2 Sodium Potassium Chloride Carbon Dioxide BUN Creatinine Glucose POC Glucose 136 H 143 H Lactic Acid Calcium Phosphorus Total Bilirubin C-Reactive Protein NT-Pro-B Natriuret Pep Total Protein Albumin Urine WBC (Auto) Urine Creatinine 08/24/18 08/25/18 08/26/18 21:42 06:35 07:59 WBC RBC Hgb Hct MCV MCH MCHC RDW Plt Count Lymph % (Auto) [place] % (Auto) Lymph # [place] # Seg Neutrophils % Seg Neuts % (Manual) Lymphocytes % (Manual) Monocytes % (Manual) Nucleated RBC % Seg Neutrophils # Seg Neutrophils # Man Lymphocytes # (Manual) Monocytes # (Manual) PT INR APTT D-Dimer Heparin Anti-Xa Level POC ABG pH POC ABG pCO2 POC ABG pO2 Sodium Potassium Chloride Carbon Dioxide BUN Creatinine Glucose POC Glucose 107 H 119 H 125 H Lactic Acid Calcium Phosphorus Total Bilirubin C-Reactive Protein NT-Pro-B Natriuret Pep Total Protein Albumin Urine WBC (Auto) Urine Creatinine 08/26/18 12:23 WBC RBC Hgb Hct MCV MCH MCHC RDW Plt Count Lymph % (Auto) [place] % (Auto) Lymph # [place] # Seg Neutrophils % Seg Neuts % (Manual) Lymphocytes % (Manual) Monocytes % (Manual) Nucleated RBC % Seg Neutrophils # Seg Neutrophils # Man Lymphocytes # (Manual) Monocytes # (Manual) PT INR APTT D-Dimer Heparin Anti-Xa Level POC ABG pH POC ABG pCO2 POC ABG pO2 Sodium Potassium Chloride Carbon Dioxide BUN Creatinine Glucose POC Glucose 126 H Lactic Acid Calcium Phosphorus Total Bilirubin C-Reactive Protein NT-Pro-B Natriuret Pep Total Protein Albumin Urine WBC (Auto) Urine Creatinine Allied health notes reviewed: nursing
[2018-08-26] MEDS: TYLENOL FEEDTUBE PRN (13:34)
[2018-08-26] MEDS: LANTUS SUB-Q SCH (22:28)
[2018-08-27] MEDS: TYLENOL FEEDTUBE PRN (05:36)
[2018-08-27] MEDS: HumaLOG SUB-Q SCH ×3 (06:28→22:50)
[2018-08-27] MEDS: PULMICORT IH SCH ×2 (09:35→19:46)
[2018-08-27] MEDS: BROVANA NEBU IH SCH ×2 (09:44→19:46)
[2018-08-27] MEDS: VITAMIN B-12 PO SCH (11:11)
[2018-08-27] MEDS: ELIQUIS PO SCH ×2 (11:12→22:58)
[2018-08-27] MEDS: PEPCID PO SCH ×2 (11:12→22:57)
[2018-08-27] MEDS: PRAVACHOL PO SCH (11:12)
[2018-08-27] MEDS: SODIUM CHLORIDE FLUSH SYRINGE 10 ML IV SCH ×2 (11:13→22:58)
[2018-08-27] MEDS: CORDARONE PO SCH ×2 (11:13→22:57)
[2018-08-27] MEDS: LANTUS SUB-Q SCH (22:58)
--- NOTE | 2018-08-27 23:43 | Progress Note ---
Assessment and Plan Patient sleeping at this time. On T tube. FIO2 35% O2 saturation 93%. No acute respiratory distress.. - Patient Problems (1) Acute respiratory failure Current Visit: Yes Status: Acute Qualifiers: Respiratory failure complication: hypoxia Qualified Code(s): J96.01 - Acute respiratory failure with hypoxia Plan to address problem: T tube FIO2 35%. Brovanna/Budesonide aerosol treatments q 12 hours. Albuterol/atrovent aerosol treatments q 6 hours PRN for shortness of breath. Patient is on Apixaban. Continue famotidine. (2) Atrial fibrillation with RVR Current Visit: Yes Status: Acute Plan to address problem: Patient is on Apixaban. Management as per cardiology. (3) CHF (congestive heart failure) Current Visit: Yes Status: Acute Qualifiers: Heart failure type: systolic Heart failure chronicity: acute Qualified Code(s): I50.21 - Acute systolic (congestive) heart failure Plan to address problem: Management as per primary care and cardiology. (4) Pneumonia Current Visit: Yes Status: Acute Plan to address problem: Finished course of cefepime. (5) COPD (chronic obstructive pulmonary disease) Current Visit: Yes Status: Chronic Plan to address problem: T tube FIO2 35%. Brovanna/Budesonide aerosol treatments q 12 hours. Albuterol/atrovent aerosol treatments q 6 hours PRN for shortness of breath. Patient is on Apixaban. Continue famotidine. (6) Hypertension Current Visit: Yes Status: Chronic Qualifiers: Hypertension type: essential hypertension Qualified Code(s): I10 - Essential (primary) hypertension Plan to address problem: Management as per primary care. Subjective Date of service: 08/27/18 Principal diagnosis: Acute hypoxemic respiratory failure; A-fib with RVR; Possible CHF; H/O DVT Interval history: Patient sleeping at this time. On T tube. FIO2 35% O2 saturation 93%. No acute respiratory distress.. Objective Vital Signs - 12hr 08/27/18 08/27/18 08/27/18 12:00 17:14 17:20 Temperature 99.0 F 97.8 F Pulse Rate 82 Pulse Rate [ Bilateral] Respiratory 20 20 Rate Respiratory Rate [Bilateral ] Blood Pressure 127/71 O2 Sat by Pulse 94 Oximetry O2 Sat by Pulse 96 Oximetry [ Assessment] 01/12/19 01/12/19 01/12/19 19:47 20:02 20:17 Temperature Pulse Rate Pulse Rate [ 74 76 Bilateral] Respiratory 20 Rate Respiratory 18 18 Rate [Bilateral ] Blood Pressure O2 Sat by Pulse 93 Oximetry O2 Sat by Pulse Oximetry [ Assessment] 08/27/18 23:27 Temperature Pulse Rate Pulse Rate [ Bilateral] Respiratory Rate Respiratory Rate [Bilateral ] Blood Pressure O2 Sat by Pulse Oximetry O2 Sat by Pulse 91 Oximetry [ Assessment] Constitutional: no acute distress, asleep, other (elderly looking CM, normocephalic and atraumatic with normal respiratory effort) Eyes: non-icteric ENT: oropharynx moist, other (s/p tracheosomy) Neck: supple, no lymphadenopathy, no JVD, other (No thyromegaly) Effort: mildly labored Ascultation: Bilateral: diminished breath sounds, rhonchi Percussion: Bilateral: not dull Cardiovascular: irregular rhythm, other (+ systolic murmur) Gastrointestinal: normoactive bowel sounds, soft, non-tender, non-distended, other (No palpable HSM) Integumentary: rash, other (upper extremity edema) Extremities: no cyanosis, pink and warm, pulses normal, no ischemia or petechiae Neurologic: normal mental status, non-focal exam (grossly), pupils equal and round, CN II-XII normal, other (moves all extemities) Psychiatric: mood appropriate, affect normal CBC and BMP: 08/23/18 04:37 08/23/18 04:37 ABG, PT/INR, D-dimer: ABG POC ABG pH 7.370 (7.35-7.45) 08/19/18 05:16 POC ABG pCO2 57.5 (35-45) H 08/19/18 05:16 POC ABG pO2 65 (80-105) L 08/19/18 05:16 POC ABG HCO3 33.2 08/19/18 05:16 POC ABG Total CO2 35 08/19/18 05:16 POC ABG O2 Sat 91 08/19/18 05:16 PT/INR, D-dimer PT 13.4 Sec. (12.2-14.9) 08/07/18 15:08 INR 0.98 (0.87-1.13) 08/07/18 15:08 D-Dimer 798.17 ng/mlDDU (0-234) H 07/27/18 15:52 Abnormal lab findings: Abnormal Labs 07/27/18 07/27/18 07/27/18 12:59 12:59 12:59 WBC 15.8 H RBC Hgb Hct MCV 104 H MCH 34 H MCHC RDW 16.3 H Plt Count Lymph % (Auto) [place] % (Auto) Lymph # [place] # Seg Neutrophils % Seg Neuts % (Manual) 88.0 H Lymphocytes % (Manual) 3.0 L Monocytes % (Manual) Nucleated RBC % Seg Neutrophils # Seg Neutrophils # Man 13.9 H Lymphocytes # (Manual) 0.5 L Monocytes # (Manual) PT 17.0 H INR 1.34 H APTT D-Dimer Heparin Anti-Xa Level POC ABG pH POC ABG pCO2 POC ABG pO2 Sodium Potassium Chloride Carbon Dioxide 21 L BUN 38 H Creatinine 1.6 H Glucose POC Glucose Lactic Acid Calcium Phosphorus Total Bilirubin 1.30 H C-Reactive Protein NT-Pro-B Natriuret Pep 3913 H Total Protein 6.2 L Albumin 3.6 L Urine WBC (Auto) Urine Creatinine 07/27/18 07/27/18 07/27/18 15:52 16:12 17:09 WBC RBC Hgb Hct MCV MCH MCHC RDW Plt Count Lymph % (Auto) [place] % (Auto) Lymph # [place] # Seg Neutrophils % Seg Neuts % (Manual) Lymphocytes % (Manual) Monocytes % (Manual) Nucleated RBC % Seg Neutrophils # Seg Neutrophils # Man Lymphocytes # (Manual) Monocytes # (Manual) PT 16.0 H INR 1.24 H APTT D-Dimer 798.17 H Heparin Anti-Xa Level POC ABG pH POC ABG pCO2 POC ABG pO2 Sodium Potassium Chloride Carbon Dioxide BUN Creatinine Glucose POC Glucose Lactic Acid 5.00 H* Calcium Phosphorus Total Bilirubin C-Reactive Protein NT-Pro-B Natriuret Pep Total Protein Albumin Urine WBC (Auto) Urine Creatinine 07/27/18 07/27/18 07/27/18 17:59 18:07 21:31 WBC RBC Hgb Hct MCV MCH MCHC RDW Plt Count Lymph % (Auto) [place] % (Auto) Lymph # [place] # Seg Neutrophils % Seg Neuts % (Manual) Lymphocytes % (Manual) Monocytes % (Manual) Nucleated RBC % Seg Neutrophils # Seg Neutrophils # Man Lymphocytes # (Manual) Monocytes # (Manual) PT INR APTT D-Dimer Heparin Anti-Xa Level POC ABG pH 7.344 L POC ABG pCO2 POC ABG pO2 36 L Sodium Potassium Chloride Carbon Dioxide BUN Creatinine Glucose POC Glucose Lactic Acid 5.20 H* 5.00 H* Calcium Phosphorus Total Bilirubin C-Reactive Protein NT-Pro-B Natriuret Pep Total Protein Albumin Urine WBC (Auto) Urine Creatinine 07/27/18 07/27/18 07/27/18 21:57 22:42 23:26 WBC RBC Hgb Hct MCV MCH MCHC RDW Plt Count Lymph % (Auto) [place] % (Auto) Lymph # [place] # Seg Neutrophils % Seg Neuts % (Manual) Lymphocytes % (Manual) Monocytes % (Manual) Nucleated RBC % Seg Neutrophils # Seg Neutrophils # Man Lymphocytes # (Manual) Monocytes # (Manual) PT INR APTT D-Dimer Heparin Anti-Xa Level POC ABG pH 7.199 L POC ABG pCO2 62.0 H POC ABG pO2 Sodium Potassium Chloride Carbon Dioxide BUN Creatinine Glucose POC Glucose Lactic Acid 4.70 H* 5.00 H* Calcium Phosphorus Total Bilirubin C-Reactive Protein NT-Pro-B Natriuret Pep Total Protein Albumin Urine WBC (Auto) Urine Creatinine 07/28/18 07/28/18 07/28/18 00:45 05:40 05:58 WBC RBC Hgb Hct MCV MCH MCHC RDW Plt Count Lymph % (Auto) [place] % (Auto) Lymph # [place] # Seg Neutrophils % Seg Neuts % (Manual) Lymphocytes % (Manual) Monocytes % (Manual) Nucleated RBC % Seg Neutrophils # Seg Neutrophils # Man Lymphocytes # (Manual) Monocytes # (Manual) PT INR APTT D-Dimer Heparin Anti-Xa Level 0.11 L POC ABG pH 7.186 L POC ABG pCO2 60.1 H POC ABG pO2 68 L Sodium Potassium Chloride Carbon Dioxide BUN Creatinine Glucose POC Glucose Lactic Acid 4.70 H* Calcium Phosphorus Total Bilirubin C-Reactive Protein NT-Pro-B Natriuret Pep Total Protein Albumin Urine WBC (Auto) Urine Creatinine 07/28/18 07/28/18 07/28/18 06:01 06:01 07:19 WBC 12.5 H RBC 3.51 L Hgb 11.5 L Hct MCV 104 H MCH 33 H MCHC RDW 16.6 H Plt Count Lymph % (Auto) [place] % (Auto) Lymph # [place] # Seg Neutrophils % Seg Neuts % (Manual) Lymphocytes % (Manual) Monocytes % (Manual) Nucleated RBC % Seg Neutrophils # Seg Neutrophils # Man Lymphocytes # (Manual) Monocytes # (Manual) PT INR APTT D-Dimer Heparin Anti-Xa Level 0.14 L POC ABG pH POC ABG pCO2 POC ABG pO2 Sodium 135 L Potassium 5.1 H Chloride 95.0 L Carbon Dioxide 21 L BUN 54 H Creatinine 2.6 H D Glucose POC Glucose Lactic Acid Calcium Phosphorus Total Bilirubin C-Reactive Protein NT-Pro-B Natriuret Pep Total Protein Albumin Urine WBC (Auto) Urine Creatinine 07/28/18 07/28/18 07/28/18 07:19 09:20 11:06 WBC RBC Hgb Hct MCV MCH MCHC RDW Plt Count Lymph % (Auto) [place] % (Auto) Lymph # [place] # Seg Neutrophils % Seg Neuts % (Manual) Lymphocytes % (Manual) Monocytes % (Manual) Nucleated RBC % Seg Neutrophils # Seg Neutrophils # Man Lymphocytes # (Manual) Monocytes # (Manual) PT INR APTT D-Dimer Heparin Anti-Xa Level POC ABG pH 7.266 L POC ABG pCO2 49.7 H POC ABG pO2 74 L Sodium Potassium Chloride Carbon Dioxide BUN Creatinine Glucose POC Glucose Lactic Acid 4.00 H* 3.90 H* Calcium Phosphorus Total Bilirubin C-Reactive Protein NT-Pro-B Natriuret Pep Total Protein Albumin Urine WBC (Auto) Urine Creatinine 07/28/18 07/28/18 07/28/18 15:06 20:45 23:36 WBC RBC Hgb Hct MCV MCH MCHC RDW Plt Count Lymph % (Auto) [place] % (Auto) Lymph # [place] # Seg Neutrophils % Seg Neuts % (Manual) Lymphocytes % (Manual) Monocytes % (Manual) Nucleated RBC % Seg Neutrophils # Seg Neutrophils # Man Lymphocytes # (Manual) Monocytes # (Manual) PT INR APTT D-Dimer Heparin Anti-Xa Level 0.15 L POC ABG pH POC ABG pCO2 POC ABG pO2 Sodium 134 L Potassium 5.2 H Chloride Carbon Dioxide BUN 58 H Creatinine 2.1 H Glucose 110 H POC Glucose 125 H Lactic Acid Calcium Phosphorus Total Bilirubin C-Reactive Protein NT-Pro-B Natriuret Pep Total Protein Albumin Urine WBC (Auto) Urine Creatinine 07/29/18 07/29/18 07/29/18 01:12 04:21 04:21 WBC RBC 3.21 L Hgb 10.8 L Hct 33.0 L MCV 103 H MCH 34 H MCHC RDW 16.4 H Plt Count Lymph % (Auto) [place] % (Auto) Lymph # [place] # Seg Neutrophils % Seg Neuts % (Manual) Lymphocytes % (Manual) 11.0 L Monocytes % (Manual) Nucleated RBC % Seg Neutrophils # Seg Neutrophils # Man Lymphocytes # (Manual) 1.0 L Monocytes # (Manual) PT INR APTT D-Dimer Heparin Anti-Xa Level 0.21 L POC ABG pH POC ABG pCO2 POC ABG pO2 Sodium Potassium Chloride Carbon Dioxide BUN 48 H Creatinine 1.6 H Glucose 166 H POC Glucose Lactic Acid Calcium Phosphorus Total Bilirubin C-Reactive Protein NT-Pro-B Natriuret Pep Total Protein Albumin Urine WBC (Auto) Urine Creatinine 07/29/18 07/29/18 07/29/18 05:19 08:16 09:24 WBC RBC Hgb Hct MCV MCH MCHC RDW Plt Count Lymph % (Auto) [place] % (Auto) Lymph # [place] # Seg Neutrophils % Seg Neuts % (Manual) Lymphocytes % (Manual) Monocytes % (Manual) Nucleated RBC % Seg Neutrophils # Seg Neutrophils # Man Lymphocytes # (Manual) Monocytes # (Manual) PT INR APTT D-Dimer Heparin Anti-Xa Level 0.25 L POC ABG pH POC ABG pCO2 POC ABG pO2 Sodium Potassium Chloride Carbon Dioxide BUN Creatinine Glucose POC Glucose 181 H Lactic Acid Calcium Phosphorus Total Bilirubin C-Reactive Protein NT-Pro-B Natriuret Pep Total Protein Albumin Urine WBC (Auto) 29.0 H Urine Creatinine 07/29/18 07/29/18 07/29/18 09:24 10:00 15:03 WBC RBC Hgb Hct MCV MCH MCHC RDW Plt Count Lymph % (Auto) [place] % (Auto) Lymph # [place] # Seg Neutrophils % Seg Neuts % (Manual) Lymphocytes % (Manual) Monocytes % (Manual) Nucleated RBC % Seg Neutrophils # Seg Neutrophils # Man Lymphocytes # (Manual) Monocytes # (Manual) PT INR APTT D-Dimer Heparin Anti-Xa Level POC ABG pH POC ABG pCO2 POC ABG pO2 Sodium Potassium Chloride Carbon Dioxide BUN Creatinine Glucose POC Glucose 195 H 167 H Lactic Acid Calcium Phosphorus Total Bilirubin C-Reactive Protein NT-Pro-B Natriuret Pep Total Protein Albumin Urine WBC (Auto) Urine Creatinine 72.3 H 07/29/18 07/29/18 07/30/18 17:51 21:32 01:38 WBC RBC Hgb Hct MCV MCH MCHC RDW Plt Count Lymph % (Auto) [place] % (Auto) Lymph # [place] # Seg Neutrophils % Seg Neuts % (Manual) Lymphocytes % (Manual) Monocytes % (Manual) Nucleated RBC % Seg Neutrophils # Seg Neutrophils # Man Lymphocytes # (Manual) Monocytes # (Manual) PT INR APTT D-Dimer Heparin Anti-Xa Level POC ABG pH POC ABG pCO2 POC ABG pO2 Sodium Potassium Chloride Carbon Dioxide BUN Creatinine Glucose POC Glucose 167 H 217 H 194 H Lactic Acid Calcium Phosphorus Total Bilirubin C-Reactive Protein NT-Pro-B Natriuret Pep Total Protein Albumin Urine WBC (Auto) Urine Creatinine 07/30/18 07/30/18 07/30/18 03:21 05:13 10:18 WBC RBC Hgb Hct MCV MCH MCHC RDW Plt Count Lymph % (Auto) [place] % (Auto) Lymph # [place] # Seg Neutrophils % Seg Neuts % (Manual) Lymphocytes % (Manual) Monocytes % (Manual) Nucleated RBC % Seg Neutrophils # Seg Neutrophils # Man Lymphocytes # (Manual) Monocytes # (Manual) PT INR APTT D-Dimer Heparin Anti-Xa Level POC ABG pH POC ABG pCO2 50.3 H POC ABG pO2 78 L Sodium Potassium Chloride Carbon Dioxide BUN 41 H Creatinine Glucose 202 H POC Glucose 151 H Lactic Acid Calcium Phosphorus Total Bilirubin C-Reactive Protein NT-Pro-B Natriuret Pep Total Protein Albumin Urine WBC (Auto) Urine Creatinine 07/30/18 07/30/18 07/30/18 11:29 16:28 18:12 WBC RBC Hgb Hct MCV MCH MCHC RDW Plt Count Lymph % (Auto) [place] % (Auto) Lymph # [place] # Seg Neutrophils % Seg Neuts % (Manual) Lymphocytes % (Manual) Monocytes % (Manual) Nucleated RBC % Seg Neutrophils # Seg Neutrophils # Man Lymphocytes # (Manual) Monocytes # (Manual) PT INR APTT D-Dimer Heparin Anti-Xa Level POC ABG pH 7.326 L POC ABG pCO2 53.2 H POC ABG pO2 70 L Sodium Potassium Chloride Carbon Dioxide BUN Creatinine Glucose POC Glucose 247 H 212 H Lactic Acid Calcium Phosphorus Total Bilirubin C-Reactive Protein NT-Pro-B Natriuret Pep Total Protein Albumin Urine WBC (Auto) Urine Creatinine 07/30/18 07/30/18 07/31/18 20:08 21:52 01:59 WBC RBC Hgb Hct MCV MCH MCHC RDW Plt Count Lymph % (Auto) [place] % (Auto) Lymph # [place] # Seg Neutrophils % Seg Neuts % (Manual) Lymphocytes % (Manual) Monocytes % (Manual) Nucleated RBC % Seg Neutrophils # Seg Neutrophils # Man Lymphocytes # (Manual) Monocytes # (Manual) PT INR APTT D-Dimer Heparin Anti-Xa Level POC ABG pH POC ABG pCO2 POC ABG pO2 Sodium Potassium Chloride Carbon Dioxide BUN Creatinine Glucose POC Glucose 205 H 215 H 242 H Lactic Acid Calcium Phosphorus Total Bilirubin C-Reactive Protein NT-Pro-B Natriuret Pep Total Protein Albumin Urine WBC (Auto) Urine Creatinine 07/31/18 07/31/18 07/31/18 03:14 03:14 04:55 WBC RBC Hgb 10.6 L Hct 33.2 L MCV MCH MCHC RDW Plt Count Lymph % (Auto) [place] % (Auto) Lymph # [place] # Seg Neutrophils % Seg Neuts % (Manual) Lymphocytes % (Manual) Monocytes % (Manual) Nucleated RBC % Seg Neutrophils # Seg Neutrophils # Man Lymphocytes # (Manual) Monocytes # (Manual) PT INR APTT D-Dimer Heparin Anti-Xa Level POC ABG pH 7.331 L POC ABG pCO2 67.1 H POC ABG pO2 Sodium Potassium Chloride Carbon Dioxide BUN 36 H Creatinine 0.7 L Glucose 242 H POC Glucose Lactic Acid Calcium 10.3 H Phosphorus 2.30 L Total Bilirubin C-Reactive Protein NT-Pro-B Natriuret Pep Total Protein Albumin Urine WBC (Auto) Urine Creatinine 07/31/18 07/31/18 07/31/18 05:37 10:08 14:07 WBC RBC Hgb Hct MCV MCH MCHC RDW Plt Count Lymph % (Auto) [place] % (Auto) Lymph # [place] # Seg Neutrophils % Seg Neuts % (Manual) Lymphocytes % (Manual) Monocytes % (Manual) Nucleated RBC % Seg Neutrophils # Seg Neutrophils # Man Lymphocytes # (Manual) Monocytes # (Manual) PT INR APTT D-Dimer Heparin Anti-Xa Level POC ABG pH POC ABG pCO2 POC ABG pO2 Sodium Potassium Chloride Carbon Dioxide BUN Creatinine Glucose POC Glucose 193 H 247 H 225 H Lactic Acid Calcium Phosphorus Total Bilirubin C-Reactive Protein NT-Pro-B Natriuret Pep Total Protein Albumin Urine WBC (Auto) Urine Creatinine 07/31/18 07/31/18 08/01/18 18:12 21:34 02:00 WBC RBC Hgb Hct MCV MCH MCHC RDW Plt Count Lymph % (Auto) [place] % (Auto) Lymph # [place] # Seg Neutrophils % Seg Neuts % (Manual) Lymphocytes % (Manual) Monocytes % (Manual) Nucleated RBC % Seg Neutrophils # Seg Neutrophils # Man Lymphocytes # (Manual) Monocytes # (Manual) PT INR APTT D-Dimer Heparin Anti-Xa Level POC ABG pH POC ABG pCO2 POC ABG pO2 Sodium Potassium Chloride Carbon Dioxide BUN Creatinine Glucose POC Glucose 197 H 204 H 239 H Lactic Acid Calcium Phosphorus Total Bilirubin C-Reactive Protein NT-Pro-B Natriuret Pep Total Protein Albumin Urine WBC (Auto) Urine Creatinine 08/01/18 08/01/18 08/01/18 04:13 04:37 05:29 WBC RBC Hgb Hct MCV MCH MCHC RDW Plt Count Lymph % (Auto) [place] % (Auto) Lymph # [place] # Seg Neutrophils % Seg Neuts % (Manual) Lymphocytes % (Manual) Monocytes % (Manual) Nucleated RBC % Seg Neutrophils # Seg Neutrophils # Man Lymphocytes # (Manual) Monocytes # (Manual) PT INR APTT D-Dimer Heparin Anti-Xa Level POC ABG pH 7.296 L POC ABG pCO2 81.9 H POC ABG pO2 190 H Sodium 150 H D Potassium Chloride Carbon Dioxide 37 H D BUN 37 H Creatinine 0.6 L Glucose 223 H POC Glucose 219 H Lactic Acid Calcium Phosphorus Total Bilirubin C-Reactive Protein NT-Pro-B Natriuret Pep Total Protein Albumin Urine WBC (Auto) Urine Creatinine 08/01/18 08/01/18 08/01/18 09:28 11:00 17:36 WBC RBC Hgb Hct MCV MCH MCHC RDW Plt Count Lymph % (Auto) [place] % (Auto) Lymph # [place] # Seg Neutrophils % Seg Neuts % (Manual) Lymphocytes % (Manual) Monocytes % (Manual) Nucleated RBC % Seg Neutrophils # Seg Neutrophils # Man Lymphocytes # (Manual) Monocytes # (Manual) PT INR APTT D-Dimer Heparin Anti-Xa Level POC ABG pH POC ABG pCO2 61.2 H POC ABG pO2 69 L Sodium Potassium Chloride Carbon Dioxide BUN Creatinine Glucose POC Glucose 185 H 234 H Lactic Acid Calcium Phosphorus Total Bilirubin C-Reactive Protein NT-Pro-B Natriuret Pep Total Protein Albumin Urine WBC (Auto) Urine Creatinine 1208/02/18 08/02/18 21:54 00:08 00:44 WBC RBC Hgb Hct MCV MCH MCHC RDW Plt Count Lymph % (Auto) [place] % (Auto) Lymph # [place] # Seg Neutrophils % Seg Neuts % (Manual) Lymphocytes % (Manual) Monocytes % (Manual) Nucleated RBC % Seg Neutrophils # Seg Neutrophils # Man Lymphocytes # (Manual) Monocytes # (Manual) PT INR APTT D-Dimer Heparin Anti-Xa Level 0.77 H POC ABG pH POC ABG pCO2 66.4 H POC ABG pO2 64 L Sodium Potassium Chloride Carbon Dioxide BUN Creatinine Glucose POC Glucose 242 H Lactic Acid Calcium Phosphorus Total Bilirubin C-Reactive Protein NT-Pro-B Natriuret Pep Total Protein Albumin Urine WBC (Auto) Urine Creatinine 08/02/18 08/02/18 08/02/18 02:46 04:45 04:45 WBC RBC Hgb 10.7 L Hct 33.7 L MCV MCH MCHC RDW Plt Count Lymph % (Auto) [place] % (Auto) Lymph # [place] # Seg Neutrophils % Seg Neuts % (Manual) Lymphocytes % (Manual) Monocytes % (Manual) Nucleated RBC % Seg Neutrophils # Seg Neutrophils # Man Lymphocytes # (Manual) Monocytes # (Manual) PT INR APTT D-Dimer Heparin Anti-Xa Level POC ABG pH POC ABG pCO2 POC ABG pO2 Sodium 152 H Potassium Chloride 108.1 H Carbon Dioxide 39 H BUN 38 H Creatinine 0.6 L Glucose 226 H POC Glucose 206 H Lactic Acid Calcium Phosphorus Total Bilirubin C-Reactive Protein NT-Pro-B Natriuret Pep Total Protein Albumin Urine WBC (Auto) Urine Creatinine 08/02/18 08/02/18 08/02/18 05:31 09:46 14:23 WBC RBC Hgb Hct MCV MCH MCHC RDW Plt Count Lymph % (Auto) [place] % (Auto) Lymph # [place] # Seg Neutrophils % Seg Neuts % (Manual) Lymphocytes % (Manual) Monocytes % (Manual) Nucleated RBC % Seg Neutrophils # Seg Neutrophils # Man Lymphocytes # (Manual) Monocytes # (Manual) PT INR APTT D-Dimer Heparin Anti-Xa Level 0.91 H POC ABG pH POC ABG pCO2 POC ABG pO2 Sodium Potassium Chloride Carbon Dioxide BUN Creatinine Glucose POC Glucose 214 H 210 H Lactic Acid Calcium Phosphorus Total Bilirubin C-Reactive Protein NT-Pro-B Natriuret Pep Total Protein Albumin Urine WBC (Auto) Urine Creatinine 08/02/18 08/02/18 08/02/18 15:46 17:56 21:50 WBC RBC Hgb Hct MCV MCH MCHC RDW Plt Count Lymph % (Auto) [place] % (Auto) Lymph # [place] # Seg Neutrophils % Seg Neuts % (Manual) Lymphocytes % (Manual) Monocytes % (Manual) Nucleated RBC % Seg Neutrophils # Seg Neutrophils # Man Lymphocytes # (Manual) Monocytes # (Manual) PT INR APTT D-Dimer Heparin Anti-Xa Level 0.99 H POC ABG pH POC ABG pCO2 POC ABG pO2 Sodium Potassium Chloride Carbon Dioxide BUN Creatinine Glucose POC Glucose 252 H 222 H Lactic Acid Calcium Phosphorus Total Bilirubin C-Reactive Protein NT-Pro-B Natriuret Pep Total Protein Albumin Urine WBC (Auto) Urine Creatinine 08/03/18 08/03/18 08/03/18 02:18 05:21 05:25 WBC RBC Hgb Hct MCV MCH MCHC RDW Plt Count Lymph % (Auto) [place] % (Auto) Lymph # [place] # Seg Neutrophils % Seg Neuts % (Manual) Lymphocytes % (Manual) Monocytes % (Manual) Nucleated RBC % Seg Neutrophils # Seg Neutrophils # Man Lymphocytes # (Manual) Monocytes # (Manual) PT INR APTT D-Dimer Heparin Anti-Xa Level POC ABG pH POC ABG pCO2 POC ABG pO2 Sodium 151 H Potassium Chloride 107.3 H Carbon Dioxide 37 H BUN 42 H Creatinine 0.6 L Glucose 263 H POC Glucose 241 H 241 H Lactic Acid Calcium Phosphorus Total Bilirubin C-Reactive Protein NT-Pro-B Natriuret Pep Total Protein Albumin Urine WBC (Auto) Urine Creatinine 08/03/18 08/03/18 08/03/18 09:11 12:20 14:33 WBC RBC Hgb Hct MCV MCH MCHC RDW Plt Count Lymph % (Auto) [place] % (Auto) Lymph # [place] # Seg Neutrophils % Seg Neuts % (Manual) Lymphocytes % (Manual) Monocytes % (Manual) Nucleated RBC % Seg Neutrophils # Seg Neutrophils # Man Lymphocytes # (Manual) Monocytes # (Manual) PT INR APTT D-Dimer Heparin Anti-Xa Level POC ABG pH POC ABG pCO2 POC ABG pO2 Sodium Potassium Chloride Carbon Dioxide BUN Creatinine Glucose POC Glucose 272 H 234 H 247 H Lactic Acid Calcium Phosphorus Total Bilirubin C-Reactive Protein NT-Pro-B Natriuret Pep Total Protein Albumin Urine WBC (Auto) Urine Creatinine 08/03/18 08/03/18 08/04/18 16:48 21:21 01:56 WBC RBC Hgb Hct MCV MCH MCHC RDW Plt Count Lymph % (Auto) [place] % (Auto) Lymph # [place] # Seg Neutrophils % Seg Neuts % (Manual) Lymphocytes % (Manual) Monocytes % (Manual) Nucleated RBC % Seg Neutrophils # Seg Neutrophils # Man Lymphocytes # (Manual) Monocytes # (Manual) PT INR APTT D-Dimer Heparin Anti-Xa Level POC ABG pH POC ABG pCO2 POC ABG pO2 Sodium Potassium Chloride Carbon Dioxide BUN Creatinine Glucose POC Glucose 180 H 189 H Lactic Acid Calcium Phosphorus Total Bilirubin C-Reactive Protein 2.30 H NT-Pro-B Natriuret Pep Total Protein Albumin Urine WBC (Auto) Urine Creatinine 08/04/18 08/04/18 08/04/18 01:58 05:05 05:05 WBC 25.5 H RBC 3.31 L Hgb 10.8 L Hct 34.1 L MCV 103 H MCH 33 H MCHC RDW 16.0 H Plt Count Lymph % (Auto) [place] % (Auto) Lymph # [place] # Seg Neutrophils % Seg Neuts % (Manual) Lymphocytes % (Manual) 8.0 L Monocytes % (Manual) Nucleated RBC % 2.0 H Seg Neutrophils # Seg Neutrophils # Man 16.3 H Lymphocytes # (Manual) Monocytes # (Manual) 1.0 H PT INR APTT D-Dimer Heparin Anti-Xa Level 0.79 H POC ABG pH POC ABG pCO2 POC ABG pO2 Sodium 148 H Potassium Chloride Carbon Dioxide 36 H BUN 35 H Creatinine 0.6 L Glucose 160 H POC Glucose Lactic Acid Calcium Phosphorus Total Bilirubin C-Reactive Protein NT-Pro-B Natriuret Pep Total Protein Albumin Urine WBC (Auto) Urine Creatinine 08/04/18 08/04/18 08/04/18 05:24 05:33 08:46 WBC RBC Hgb Hct MCV MCH MCHC RDW Plt Count Lymph % (Auto) [place] % (Auto) Lymph # [place] # Seg Neutrophils % Seg Neuts % (Manual) Lymphocytes % (Manual) Monocytes % (Manual) Nucleated RBC % Seg Neutrophils # Seg Neutrophils # Man Lymphocytes # (Manual) Monocytes # (Manual) PT INR APTT D-Dimer Heparin Anti-Xa Level 0.76 H POC ABG pH POC ABG pCO2 65.7 H POC ABG pO2 63 L Sodium Potassium Chloride Carbon Dioxide BUN Creatinine Glucose POC Glucose 159 H Lactic Acid Calcium Phosphorus Total Bilirubin C-Reactive Protein NT-Pro-B Natriuret Pep Total Protein Albumin Urine WBC (Auto) Urine Creatinine 08/04/18 08/04/18 08/04/18 09:12 15:38 18:20 WBC RBC Hgb Hct MCV MCH MCHC RDW Plt Count Lymph % (Auto) [place] % (Auto) Lymph # [place] # Seg Neutrophils % Seg Neuts % (Manual) Lymphocytes % (Manual) Monocytes % (Manual) Nucleated RBC % Seg Neutrophils # Seg Neutrophils # Man Lymphocytes # (Manual) Monocytes # (Manual) PT INR APTT D-Dimer Heparin Anti-Xa Level POC ABG pH POC ABG pCO2 POC ABG pO2 Sodium Potassium Chloride Carbon Dioxide BUN Creatinine Glucose POC Glucose 140 H 267 H 252 H Lactic Acid Calcium Phosphorus Total Bilirubin C-Reactive Protein NT-Pro-B Natriuret Pep Total Protein Albumin Urine WBC (Auto) Urine Creatinine 08/04/18 08/05/18 08/05/18 21:17 02:51 04:36 WBC RBC Hgb Hct MCV MCH MCHC RDW Plt Count Lymph % (Auto) [place] % (Auto) Lymph # [place] # Seg Neutrophils % Seg Neuts % (Manual) Lymphocytes % (Manual) Monocytes % (Manual) Nucleated RBC % Seg Neutrophils # Seg Neutrophils # Man Lymphocytes # (Manual) Monocytes # (Manual) PT INR APTT D-Dimer Heparin Anti-Xa Level POC ABG pH POC ABG pCO2 POC ABG pO2 Sodium Potassium Chloride Carbon Dioxide BUN Creatinine Glucose POC Glucose 181 H 240 H 255 H Lactic Acid Calcium Phosphorus Total Bilirubin C-Reactive Protein NT-Pro-B Natriuret Pep Total Protein Albumin Urine WBC (Auto) Urine Creatinine 08/05/18 08/05/18 08/05/18 04:55 10:21 12:39 WBC 21.8 H RBC 3.18 L Hgb 10.3 L Hct 32.6 L MCV 103 H MCH 33 H MCHC RDW 16.3 H Plt Count Lymph % (Auto) [place] % (Auto) Lymph # [place] # Seg Neutrophils % Seg Neuts % (Manual) 88.0 H Lymphocytes % (Manual) 4.0 L Monocytes % (Manual) Nucleated RBC % Seg Neutrophils # Seg Neutrophils # Man 19.2 H Lymphocytes # (Manual) 0.9 L Monocytes # (Manual) PT INR APTT D-Dimer Heparin Anti-Xa Level POC ABG pH 7.506 H POC ABG pCO2 56.0 H POC ABG pO2 63 L Sodium Potassium Chloride Carbon Dioxide BUN Creatinine Glucose POC Glucose 227 H Lactic Acid Calcium Phosphorus Total Bilirubin C-Reactive Protein NT-Pro-B Natriuret Pep Total Protein Albumin Urine WBC (Auto) Urine Creatinine 08/05/18 08/05/18 08/05/18 12:39 14:10 17:30 WBC RBC Hgb Hct MCV MCH MCHC RDW Plt Count Lymph % (Auto) [place] % (Auto) Lymph # [place] # Seg Neutrophils % Seg Neuts % (Manual) Lymphocytes % (Manual) Monocytes % (Manual) Nucleated RBC % Seg Neutrophils # Seg Neutrophils # Man Lymphocytes # (Manual) Monocytes # (Manual) PT INR APTT D-Dimer Heparin Anti-Xa Level < 0.10 L POC ABG pH POC ABG pCO2 POC ABG pO2 Sodium Potassium Chloride 96.8 L Carbon Dioxide 38 H BUN 36 H Creatinine 0.6 L Glucose 218 H POC Glucose 221 H Lactic Acid Calcium Phosphorus Total Bilirubin C-Reactive Protein NT-Pro-B Natriuret Pep Total Protein Albumin Urine WBC (Auto) Urine Creatinine 08/05/18 08/05/18 08/06/18 18:32 23:32 02:26 WBC RBC Hgb Hct MCV MCH MCHC RDW Plt Count Lymph % (Auto) [place] % (Auto) Lymph # [place] # Seg Neutrophils % Seg Neuts % (Manual) Lymphocytes % (Manual) Monocytes % (Manual) Nucleated RBC % Seg Neutrophils # Seg Neutrophils # Man Lymphocytes # (Manual) Monocytes # (Manual) PT INR APTT D-Dimer Heparin Anti-Xa Level POC ABG pH POC ABG pCO2 POC ABG pO2 Sodium Potassium Chloride Carbon Dioxide BUN Creatinine Glucose POC Glucose 253 H 215 H 227 H Lactic Acid Calcium Phosphorus Total Bilirubin C-Reactive Protein NT-Pro-B Natriuret Pep Total Protein Albumin Urine WBC (Auto) Urine Creatinine 08/06/18 08/06/18 08/06/18 05:17 05:17 05:32 WBC 18.9 H RBC 3.06 L Hgb 10.2 L Hct 31.3 L MCV 102 H MCH 33 H MCHC RDW 16.1 H Plt Count Lymph % (Auto) [place] % (Auto) Lymph # [place] # Seg Neutrophils % Seg Neuts % (Manual) Lymphocytes % (Manual) Monocytes % (Manual) Nucleated RBC % Seg Neutrophils # Seg Neutrophils # Man Lymphocytes # (Manual) Monocytes # (Manual) PT INR APTT D-Dimer Heparin Anti-Xa Level POC ABG pH 7.468 H POC ABG pCO2 59.5 H POC ABG pO2 64 L Sodium Potassium Chloride Carbon Dioxide 37 H BUN 37 H Creatinine 0.5 L Glucose 226 H POC Glucose Lactic Acid Calcium Phosphorus Total Bilirubin C-Reactive Protein NT-Pro-B Natriuret Pep Total Protein Albumin Urine WBC (Auto) Urine Creatinine 08/06/18 08/06/18 08/06/18 10:11 15:03 17:48 WBC RBC Hgb Hct MCV MCH MCHC RDW Plt Count Lymph % (Auto) [place] % (Auto) Lymph # [place] # Seg Neutrophils % Seg Neuts % (Manual) Lymphocytes % (Manual) Monocytes % (Manual) Nucleated RBC % Seg Neutrophils # Seg Neutrophils # Man Lymphocytes # (Manual) Monocytes # (Manual) PT INR APTT D-Dimer Heparin Anti-Xa Level POC ABG pH POC ABG pCO2 POC ABG pO2 Sodium Potassium Chloride Carbon Dioxide BUN Creatinine Glucose POC Glucose 207 H 229 H 188 H Lactic Acid Calcium Phosphorus Total Bilirubin C-Reactive Protein NT-Pro-B Natriuret Pep Total Protein Albumin Urine WBC (Auto) Urine Creatinine 08/06/18 08/07/18 08/07/18 22:53 01:55 05:30 WBC RBC Hgb Hct MCV MCH MCHC RDW Plt Count Lymph % (Auto) [place] % (Auto) Lymph # [place] # Seg Neutrophils % Seg Neuts % (Manual) Lymphocytes % (Manual) Monocytes % (Manual) Nucleated RBC % Seg Neutrophils # Seg Neutrophils # Man Lymphocytes # (Manual) Monocytes # (Manual) PT INR APTT D-Dimer Heparin Anti-Xa Level POC ABG pH POC ABG pCO2 69.6 H POC ABG pO2 64 L Sodium Potassium Chloride Carbon Dioxide BUN Creatinine Glucose POC Glucose 146 H 143 H Lactic Acid Calcium Phosphorus Total Bilirubin C-Reactive Protein NT-Pro-B Natriuret Pep Total Protein Albumin Urine WBC (Auto) Urine Creatinine 08/07/18 08/07/18 08/07/18 09:59 14:16 15:08 WBC RBC Hgb 10.3 L Hct 32.2 L MCV MCH MCHC RDW Plt Count Lymph % (Auto) [place] % (Auto) Lymph # [place] # Seg Neutrophils % Seg Neuts % (Manual) Lymphocytes % (Manual) Monocytes % (Manual) Nucleated RBC % Seg Neutrophils # Seg Neutrophils # Man Lymphocytes # (Manual) Monocytes # (Manual) PT INR APTT D-Dimer Heparin Anti-Xa Level POC ABG pH POC ABG pCO2 POC ABG pO2 Sodium Potassium Chloride Carbon Dioxide BUN Creatinine Glucose POC Glucose 188 H 223 H Lactic Acid Calcium Phosphorus Total Bilirubin C-Reactive Protein NT-Pro-B Natriuret Pep Total Protein Albumin Urine WBC (Auto) Urine Creatinine 08/07/18 08/07/18 08/07/18 15:08 17:39 22:04 WBC RBC Hgb Hct MCV MCH MCHC RDW Plt Count Lymph % (Auto) [place] % (Auto) Lymph # [place] # Seg Neutrophils % Seg Neuts % (Manual) Lymphocytes % (Manual) Monocytes % (Manual) Nucleated RBC % Seg Neutrophils # Seg Neutrophils # Man Lymphocytes # (Manual) Monocytes # (Manual) PT INR APTT 23.2 L D-Dimer Heparin Anti-Xa Level POC ABG pH POC ABG pCO2 POC ABG pO2 Sodium Potassium Chloride Carbon Dioxide BUN Creatinine Glucose POC Glucose 208 H 163 H Lactic Acid Calcium Phosphorus Total Bilirubin C-Reactive Protein NT-Pro-B Natriuret Pep Total Protein Albumin Urine WBC (Auto) Urine Creatinine 08/07/18 08/08/18 08/08/18 22:30 01:57 02:09 WBC 14.6 H RBC 2.88 L Hgb 9.5 L Hct 29.9 L MCV 104 H MCH 33 H MCHC RDW 16.8 H Plt Count Lymph % (Auto) [place] % (Auto) Lymph # [place] # Seg Neutrophils % Seg Neuts % (Manual) 73.0 H Lymphocytes % (Manual) 9.0 L Monocytes % (Manual) 10.0 H Nucleated RBC % Seg Neutrophils # Seg Neutrophils # Man 10.7 H Lymphocytes # (Manual) Monocytes # (Manual) 1.5 H PT INR APTT D-Dimer Heparin Anti-Xa Level 0.25 L POC ABG pH POC ABG pCO2 POC ABG pO2 Sodium Potassium Chloride Carbon Dioxide BUN Creatinine Glucose POC Glucose 120 H Lactic Acid Calcium Phosphorus Total Bilirubin C-Reactive Protein NT-Pro-B Natriuret Pep Total Protein Albumin Urine WBC (Auto) Urine Creatinine 08/08/18 08/08/18 08/08/18 02:09 04:58 05:19 WBC RBC Hgb Hct MCV MCH MCHC RDW Plt Count Lymph % (Auto) [place] % (Auto) Lymph # [place] # Seg Neutrophils % Seg Neuts % (Manual) Lymphocytes % (Manual) Monocytes % (Manual) Nucleated RBC % Seg Neutrophils # Seg Neutrophils # Man Lymphocytes # (Manual) Monocytes # (Manual) PT INR APTT D-Dimer Heparin Anti-Xa Level POC ABG pH 7.461 H POC ABG pCO2 57.3 H POC ABG pO2 62 L Sodium Potassium Chloride Carbon Dioxide 39 H BUN 29 H Creatinine 0.5 L Glucose 124 H POC Glucose 139 H Lactic Acid Calcium Phosphorus Total Bilirubin C-Reactive Protein NT-Pro-B Natriuret Pep Total Protein Albumin Urine WBC (Auto) Urine Creatinine 08/08/18 08/08/18 08/08/18 10:22 14:52 16:12 WBC RBC Hgb Hct MCV MCH MCHC RDW Plt Count Lymph % (Auto) [place] % (Auto) Lymph # [place] # Seg Neutrophils % Seg Neuts % (Manual) Lymphocytes % (Manual) Monocytes % (Manual) Nucleated RBC % Seg Neutrophils # Seg Neutrophils # Man Lymphocytes # (Manual) Monocytes # (Manual) PT INR APTT D-Dimer Heparin Anti-Xa Level POC ABG pH POC ABG pCO2 POC ABG pO2 Sodium Potassium Chloride Carbon Dioxide BUN Creatinine Glucose POC Glucose 169 H 149 H 136 H Lactic Acid Calcium Phosphorus Total Bilirubin C-Reactive Protein NT-Pro-B Natriuret Pep Total Protein Albumin Urine WBC (Auto) Urine Creatinine 08/09/18 08/09/18 08/09/18 02:26 03:52 03:52 WBC 15.9 H RBC 2.87 L Hgb 9.6 L Hct 30.7 L MCV 107 H MCH 34 H MCHC 31 L RDW 17.8 H Plt Count Lymph % (Auto) 3.9 L [place] % (Auto) 8.1 H Lymph # 0.6 L [place] # 1.3 H Seg Neutrophils % 87.1 H Seg Neuts % (Manual) Lymphocytes % (Manual) Monocytes % (Manual) Nucleated RBC % Seg Neutrophils # 13.9 H Seg Neutrophils # Man Lymphocytes # (Manual) Monocytes # (Manual) PT INR APTT D-Dimer Heparin Anti-Xa Level 0.25 L POC ABG pH POC ABG pCO2 POC ABG pO2 Sodium Potassium Chloride Carbon Dioxide BUN Creatinine Glucose POC Glucose 126 H Lactic Acid Calcium Phosphorus Total Bilirubin C-Reactive Protein NT-Pro-B Natriuret Pep Total Protein Albumin Urine WBC (Auto) Urine Creatinine 08/09/18 08/09/18 08/09/18 03:52 05:34 06:48 WBC RBC Hgb Hct MCV MCH MCHC RDW Plt Count Lymph % (Auto) [place] % (Auto) Lymph # [place] # Seg Neutrophils % Seg Neuts % (Manual) Lymphocytes % (Manual) Monocytes % (Manual) Nucleated RBC % Seg Neutrophils # Seg Neutrophils # Man Lymphocytes # (Manual) Monocytes # (Manual) PT INR APTT D-Dimer Heparin Anti-Xa Level POC ABG pH POC ABG pCO2 57.5 H POC ABG pO2 58 L Sodium Potassium Chloride Carbon Dioxide 39 H BUN 26 H Creatinine 0.5 L Glucose 128 H POC Glucose 171 H Lactic Acid Calcium Phosphorus Total Bilirubin C-Reactive Protein NT-Pro-B Natriuret Pep Total Protein Albumin Urine WBC (Auto) Urine Creatinine 08/09/18 08/09/18 08/09/18 09:28 09:36 13:44 WBC RBC Hgb Hct MCV MCH MCHC RDW Plt Count Lymph % (Auto) [place] % (Auto) Lymph # [place] # Seg Neutrophils % Seg Neuts % (Manual) Lymphocytes % (Manual) Monocytes % (Manual) Nucleated RBC % Seg Neutrophils # Seg Neutrophils # Man Lymphocytes # (Manual) Monocytes # (Manual) PT INR APTT D-Dimer Heparin Anti-Xa Level 0.26 L POC ABG pH POC ABG pCO2 POC ABG pO2 Sodium Potassium Chloride Carbon Dioxide BUN Creatinine Glucose POC Glucose 183 H 184 H Lactic Acid Calcium Phosphorus Total Bilirubin C-Reactive Protein NT-Pro-B Natriuret Pep Total Protein Albumin Urine WBC (Auto) Urine Creatinine 08/09/18 08/10/18 08/10/18 17:55 04:49 05:20 WBC RBC Hgb Hct MCV MCH MCHC RDW Plt Count Lymph % (Auto) [place] % (Auto) Lymph # [place] # Seg Neutrophils % Seg Neuts % (Manual) Lymphocytes % (Manual) Monocytes % (Manual) Nucleated RBC % Seg Neutrophils # Seg Neutrophils # Man Lymphocytes # (Manual) Monocytes # (Manual) PT INR APTT D-Dimer Heparin Anti-Xa Level POC ABG pH POC ABG pCO2 59.9 H POC ABG pO2 59 L Sodium Potassium Chloride Carbon Dioxide BUN Creatinine Glucose POC Glucose 148 H 59 L Lactic Acid Calcium Phosphorus Total Bilirubin C-Reactive Protein NT-Pro-B Natriuret Pep Total Protein Albumin Urine WBC (Auto) Urine Creatinine 08/10/18 08/10/18 08/10/18 05:53 17:12 21:17 WBC RBC Hgb Hct MCV MCH MCHC RDW Plt Count Lymph % (Auto) [place] % (Auto) Lymph # [place] # Seg Neutrophils % Seg Neuts % (Manual) Lymphocytes % (Manual) Monocytes % (Manual) Nucleated RBC % Seg Neutrophils # Seg Neutrophils # Man Lymphocytes # (Manual) Monocytes # (Manual) PT INR APTT D-Dimer Heparin Anti-Xa Level POC ABG pH POC ABG pCO2 POC ABG pO2 Sodium Potassium Chloride Carbon Dioxide BUN Creatinine Glucose POC Glucose 128 H 110 H 109 H Lactic Acid Calcium Phosphorus Total Bilirubin C-Reactive Protein NT-Pro-B Natriuret Pep Total Protein Albumin Urine WBC (Auto) Urine Creatinine 08/11/18 08/11/18 08/11/18 00:54 02:28 04:17 WBC RBC Hgb 7.8 L Hct 24.1 L D MCV MCH MCHC RDW Plt Count Lymph % (Auto) [place] % (Auto) Lymph # [place] # Seg Neutrophils % Seg Neuts % (Manual) Lymphocytes % (Manual) Monocytes % (Manual) Nucleated RBC % Seg Neutrophils # Seg Neutrophils # Man Lymphocytes # (Manual) Monocytes # (Manual) PT INR APTT D-Dimer Heparin Anti-Xa Level 0.19 L POC ABG pH POC ABG pCO2 POC ABG pO2 Sodium Potassium Chloride Carbon Dioxide BUN Creatinine Glucose POC Glucose 124 H Lactic Acid Calcium Phosphorus Total Bilirubin C-Reactive Protein NT-Pro-B Natriuret Pep Total Protein Albumin Urine WBC (Auto) Urine Creatinine 08/11/18 08/11/18 08/11/18 05:10 07:42 10:27 WBC RBC Hgb Hct MCV MCH MCHC RDW Plt Count Lymph % (Auto) [place] % (Auto) Lymph # [place] # Seg Neutrophils % Seg Neuts % (Manual) Lymphocytes % (Manual) Monocytes % (Manual) Nucleated RBC % Seg Neutrophils # Seg Neutrophils # Man Lymphocytes # (Manual) Monocytes # (Manual) PT INR APTT D-Dimer Heparin Anti-Xa Level 0.20 L POC ABG pH POC ABG pCO2 POC ABG pO2 Sodium Potassium Chloride Carbon Dioxide BUN Creatinine Glucose POC Glucose 150 H 156 H Lactic Acid Calcium Phosphorus Total Bilirubin C-Reactive Protein NT-Pro-B Natriuret Pep Total Protein Albumin Urine WBC (Auto) Urine Creatinine 08/11/18 08/11/18 08/11/18 13:54 15:06 18:13 WBC RBC Hgb Hct MCV MCH MCHC RDW Plt Count Lymph % (Auto) [place] % (Auto) Lymph # [place] # Seg Neutrophils % Seg Neuts % (Manual) Lymphocytes % (Manual) Monocytes % (Manual) Nucleated RBC % Seg Neutrophils # Seg Neutrophils # Man Lymphocytes # (Manual) Monocytes # (Manual) PT INR APTT D-Dimer Heparin Anti-Xa Level POC ABG pH 7.471 H POC ABG pCO2 45.5 H POC ABG pO2 79 L Sodium Potassium Chloride Carbon Dioxide BUN Creatinine Glucose POC Glucose 177 H 143 H Lactic Acid Calcium Phosphorus Total Bilirubin C-Reactive Protein NT-Pro-B Natriuret Pep Total Protein Albumin Urine WBC (Auto) Urine Creatinine 08/11/18 08/11/18 08/11/18 18:33 21:22 Unknown WBC RBC Hgb Hct MCV MCH MCHC RDW Plt Count Lymph % (Auto) [place] % (Auto) Lymph # [place] # Seg Neutrophils % Seg Neuts % (Manual) Lymphocytes % (Manual) Monocytes % (Manual) Nucleated RBC % Seg Neutrophils # Seg Neutrophils # Man Lymphocytes # (Manual) Monocytes # (Manual) PT INR APTT D-Dimer Heparin Anti-Xa Level 0.29 L POC ABG pH POC ABG pCO2 POC ABG pO2 Sodium 136 L Potassium Chloride 96.5 L Carbon Dioxide 32 H D BUN Creatinine 0.5 L Glucose 186 H POC Glucose 151 H Lactic Acid Calcium Phosphorus Total Bilirubin C-Reactive Protein NT-Pro-B Natriuret Pep Total Protein Albumin Urine WBC (Auto) Urine Creatinine 08/11/18 08/12/18 08/12/18 Unknown 02:09 05:29 WBC 12.1 H RBC 2.50 L Hgb 8.2 L Hct 25.7 L MCV 103 H MCH 33 H MCHC RDW 17.0 H Plt Count Lymph % (Auto) 5.1 L [place] % (Auto) 9.5 H Lymph # 0.6 L [place] # 1.2 H Seg Neutrophils % 84.8 H Seg Neuts % (Manual) Lymphocytes % (Manual) Monocytes % (Manual) Nucleated RBC % Seg Neutrophils # 10.3 H Seg Neutrophils # Man Lymphocytes # (Manual) Monocytes # (Manual) PT INR APTT D-Dimer Heparin Anti-Xa Level POC ABG pH POC ABG pCO2 POC ABG pO2 Sodium Potassium Chloride Carbon Dioxide BUN Creatinine Glucose POC Glucose 159 H 136 H Lactic Acid Calcium Phosphorus Total Bilirubin C-Reactive Protein NT-Pro-B Natriuret Pep Total Protein Albumin Urine WBC (Auto) Urine Creatinine 08/12/18 08/12/18 08/12/18 07:33 09:59 13:59 WBC RBC Hgb Hct MCV MCH MCHC RDW Plt Count Lymph % (Auto) [place] % (Auto) Lymph # [place] # Seg Neutrophils % Seg Neuts % (Manual) Lymphocytes % (Manual) Monocytes % (Manual) Nucleated RBC % Seg Neutrophils # Seg Neutrophils # Man Lymphocytes # (Manual) Monocytes # (Manual) PT INR APTT D-Dimer Heparin Anti-Xa Level POC ABG pH POC ABG pCO2 POC ABG pO2 Sodium Potassium Chloride Carbon Dioxide BUN Creatinine Glucose POC Glucose 138 H 157 H 167 H Lactic Acid Calcium Phosphorus Total Bilirubin C-Reactive Protein NT-Pro-B Natriuret Pep Total Protein Albumin Urine WBC (Auto) Urine Creatinine 08/12/18 08/12/18 08/12/18 14:31 14:56 17:39 WBC RBC Hgb Hct MCV MCH MCHC RDW Plt Count Lymph % (Auto) [place] % (Auto) Lymph # [place] # Seg Neutrophils % Seg Neuts % (Manual) Lymphocytes % (Manual) Monocytes % (Manual) Nucleated RBC % Seg Neutrophils # Seg Neutrophils # Man Lymphocytes # (Manual) Monocytes # (Manual) PT INR APTT D-Dimer Heparin Anti-Xa Level 1.18 H POC ABG pH 7.466 H POC ABG pCO2 POC ABG pO2 58 L Sodium Potassium Chloride Carbon Dioxide BUN Creatinine Glucose POC Glucose 168 H Lactic Acid Calcium Phosphorus Total Bilirubin C-Reactive Protein NT-Pro-B Natriuret Pep Total Protein Albumin Urine WBC (Auto) Urine Creatinine 08/12/18 08/13/18 08/13/18 21:38 02:17 05:20 WBC RBC Hgb 8.0 L Hct 24.5 L MCV MCH MCHC RDW Plt Count Lymph % (Auto) [place] % (Auto) Lymph # [place] # Seg Neutrophils % Seg Neuts % (Manual) Lymphocytes % (Manual) Monocytes % (Manual) Nucleated RBC % Seg Neutrophils # Seg Neutrophils # Man Lymphocytes # (Manual) Monocytes # (Manual) PT INR APTT D-Dimer Heparin Anti-Xa Level POC ABG pH POC ABG pCO2 POC ABG pO2 Sodium Potassium Chloride Carbon Dioxide BUN Creatinine Glucose POC Glucose 168 H 157 H Lactic Acid Calcium Phosphorus Total Bilirubin C-Reactive Protein NT-Pro-B Natriuret Pep Total Protein Albumin Urine WBC (Auto) Urine Creatinine 08/13/18 08/13/18 08/13/18 09:28 10:07 14:09 WBC RBC Hgb Hct MCV MCH MCHC RDW Plt Count Lymph % (Auto) [place] % (Auto) Lymph # [place] # Seg Neutrophils % Seg Neuts % (Manual) Lymphocytes % (Manual) Monocytes % (Manual) Nucleated RBC % Seg Neutrophils # Seg Neutrophils # Man Lymphocytes # (Manual) Monocytes # (Manual) PT INR APTT D-Dimer Heparin Anti-Xa Level POC ABG pH 7.453 H POC ABG pCO2 47.5 H POC ABG pO2 Sodium Potassium Chloride Carbon Dioxide BUN Creatinine Glucose POC Glucose 177 H 178 H Lactic Acid Calcium Phosphorus Total Bilirubin C-Reactive Protein NT-Pro-B Natriuret Pep Total Protein Albumin Urine WBC (Auto) Urine Creatinine 08/13/18 08/13/18 08/14/18 17:33 21:28 01:58 WBC RBC Hgb Hct MCV MCH MCHC RDW Plt Count Lymph % (Auto) [place] % (Auto) Lymph # [place] # Seg Neutrophils % Seg Neuts % (Manual) Lymphocytes % (Manual) Monocytes % (Manual) Nucleated RBC % Seg Neutrophils # Seg Neutrophils # Man Lymphocytes # (Manual) Monocytes # (Manual) PT INR APTT D-Dimer Heparin Anti-Xa Level POC ABG pH POC ABG pCO2 POC ABG pO2 Sodium Potassium Chloride Carbon Dioxide BUN Creatinine Glucose POC Glucose 130 H 145 H 161 H Lactic Acid Calcium Phosphorus Total Bilirubin C-Reactive Protein NT-Pro-B Natriuret Pep Total Protein Albumin Urine WBC (Auto) Urine Creatinine 08/14/18 08/14/18 08/14/18 05:22 06:10 09:59 WBC RBC Hgb Hct MCV MCH MCHC RDW Plt Count Lymph % (Auto) [place] % (Auto) Lymph # [place] # Seg Neutrophils % Seg Neuts % (Manual) Lymphocytes % (Manual) Monocytes % (Manual) Nucleated RBC % Seg Neutrophils # Seg Neutrophils # Man Lymphocytes # (Manual) Monocytes # (Manual) PT INR APTT D-Dimer Heparin Anti-Xa Level POC ABG pH POC ABG pCO2 POC ABG pO2 Sodium Potassium Chloride Carbon Dioxide BUN Creatinine 0.5 L Glucose 125 H POC Glucose 117 H 107 H Lactic Acid Calcium Phosphorus Total Bilirubin C-Reactive Protein NT-Pro-B Natriuret Pep Total Protein Albumin Urine WBC (Auto) Urine Creatinine 08/14/18 08/14/18 08/14/18 14:04 17:49 21:27 WBC RBC Hgb Hct MCV MCH MCHC RDW Plt Count Lymph % (Auto) [place] % (Auto) Lymph # [place] # Seg Neutrophils % Seg Neuts % (Manual) Lymphocytes % (Manual) Monocytes % (Manual) Nucleated RBC % Seg Neutrophils # Seg Neutrophils # Man Lymphocytes # (Manual) Monocytes # (Manual) PT INR APTT D-Dimer Heparin Anti-Xa Level POC ABG pH POC ABG pCO2 POC ABG pO2 Sodium Potassium Chloride Carbon Dioxide BUN Creatinine Glucose POC Glucose 137 H 150 H 149 H Lactic Acid Calcium Phosphorus Total Bilirubin C-Reactive Protein NT-Pro-B Natriuret Pep Total Protein Albumin Urine WBC (Auto) Urine Creatinine 08/14/18 08/15/18 08/15/18 21:55 01:50 03:12 WBC 13.3 H RBC 2.79 L Hgb 9.3 L 8.4 L Hct 28.6 L 25.7 L MCV 102 H MCH 33 H MCHC RDW 16.6 H Plt Count Lymph % (Auto) [place] % (Auto) Lymph # [place] # Seg Neutrophils % Seg Neuts % (Manual) Lymphocytes % (Manual) Monocytes % (Manual) Nucleated RBC % Seg Neutrophils # Seg Neutrophils # Man Lymphocytes # (Manual) Monocytes # (Manual) PT INR APTT D-Dimer Heparin Anti-Xa Level POC ABG pH POC ABG pCO2 POC ABG pO2 Sodium Potassium Chloride Carbon Dioxide BUN Creatinine Glucose POC Glucose 186 H Lactic Acid Calcium Phosphorus Total Bilirubin C-Reactive Protein NT-Pro-B Natriuret Pep Total Protein Albumin Urine WBC (Auto) Urine Creatinine 08/15/18 08/15/18 08/15/18 09:55 11:45 13:47 WBC RBC 2.38 L Hgb 8.0 L Hct 24.5 L MCV 103 H MCH 34 H MCHC RDW 16.8 H Plt Count Lymph % (Auto) 4.9 L [place] % (Auto) Lymph # 0.5 L [place] # Seg Neutrophils % 88.1 H Seg Neuts % (Manual) Lymphocytes % (Manual) Monocytes % (Manual) Nucleated RBC % Seg Neutrophils # 9.6 H Seg Neutrophils # Man Lymphocytes # (Manual) Monocytes # (Manual) PT INR APTT D-Dimer Heparin Anti-Xa Level POC ABG pH POC ABG pCO2 POC ABG pO2 Sodium Potassium Chloride Carbon Dioxide BUN Creatinine Glucose POC Glucose 133 H 142 H Lactic Acid Calcium Phosphorus Total Bilirubin C-Reactive Protein NT-Pro-B Natriuret Pep Total Protein Albumin Urine WBC (Auto) Urine Creatinine 08/15/18 08/15/18 08/16/18 17:54 21:58 02:20 WBC RBC Hgb Hct MCV MCH MCHC RDW Plt Count Lymph % (Auto) [place] % (Auto) Lymph # [place] # Seg Neutrophils % Seg Neuts % (Manual) Lymphocytes % (Manual) Monocytes % (Manual) Nucleated RBC % Seg Neutrophils # Seg Neutrophils # Man Lymphocytes # (Manual) Monocytes # (Manual) PT INR APTT D-Dimer Heparin Anti-Xa Level POC ABG pH POC ABG pCO2 POC ABG pO2 Sodium Potassium Chloride Carbon Dioxide BUN Creatinine Glucose POC Glucose 131 H 157 H 108 H Lactic Acid Calcium Phosphorus Total Bilirubin C-Reactive Protein NT-Pro-B Natriuret Pep Total Protein Albumin Urine WBC (Auto) Urine Creatinine 08/16/18 08/16/18 08/16/18 05:16 10:20 10:23 WBC RBC Hgb Hct MCV MCH MCHC RDW Plt Count Lymph % (Auto) [place] % (Auto) Lymph # [place] # Seg Neutrophils % Seg Neuts % (Manual) Lymphocytes % (Manual) Monocytes % (Manual) Nucleated RBC % Seg Neutrophils # Seg Neutrophils # Man Lymphocytes # (Manual) Monocytes # (Manual) PT INR APTT D-Dimer Heparin Anti-Xa Level POC ABG pH POC ABG pCO2 POC ABG pO2 63 L Sodium Potassium Chloride Carbon Dioxide BUN Creatinine Glucose POC Glucose 115 H 146 H Lactic Acid Calcium Phosphorus Total Bilirubin C-Reactive Protein NT-Pro-B Natriuret Pep Total Protein Albumin Urine WBC (Auto) Urine Creatinine 08/16/18 08/16/18 08/16/18 11:06 14:05 18:04 WBC RBC 2.82 L Hgb 9.2 L Hct 28.8 L MCV 102 H MCH 33 H MCHC RDW 16.4 H Plt Count Lymph % (Auto) 3.8 L [place] % (Auto) Lymph # 0.4 L [place] # Seg Neutrophils % 89.5 H Seg Neuts % (Manual) Lymphocytes % (Manual) Monocytes % (Manual) Nucleated RBC % Seg Neutrophils # 9.1 H Seg Neutrophils # Man Lymphocytes # (Manual) Monocytes # (Manual) PT INR APTT D-Dimer Heparin Anti-Xa Level POC ABG pH POC ABG pCO2 POC ABG pO2 Sodium Potassium Chloride Carbon Dioxide BUN Creatinine Glucose POC Glucose 139 H 144 H Lactic Acid Calcium Phosphorus Total Bilirubin C-Reactive Protein NT-Pro-B Natriuret Pep Total Protein Albumin Urine WBC (Auto) Urine Creatinine 08/16/18 08/17/18 08/17/18 21:50 03:51 04:59 WBC RBC Hgb Hct MCV MCH MCHC RDW Plt Count Lymph % (Auto) [place] % (Auto) Lymph # [place] # Seg Neutrophils % Seg Neuts % (Manual) Lymphocytes % (Manual) Monocytes % (Manual) Nucleated RBC % Seg Neutrophils # Seg Neutrophils # Man Lymphocytes # (Manual) Monocytes # (Manual) PT INR APTT D-Dimer Heparin Anti-Xa Level POC ABG pH POC ABG pCO2 POC ABG pO2 Sodium Potassium Chloride Carbon Dioxide BUN Creatinine 0.5 L Glucose 134 H POC Glucose 147 H 135 H Lactic Acid Calcium Phosphorus Total Bilirubin C-Reactive Protein NT-Pro-B Natriuret Pep Total Protein Albumin Urine WBC (Auto) Urine Creatinine 08/17/18 08/17/18 08/17/18 12:07 18:04 21:38 WBC RBC Hgb Hct MCV MCH MCHC RDW Plt Count Lymph % (Auto) [place] % (Auto) Lymph # [place] # Seg Neutrophils % Seg Neuts % (Manual) Lymphocytes % (Manual) Monocytes % (Manual) Nucleated RBC % Seg Neutrophils # Seg Neutrophils # Man Lymphocytes # (Manual) Monocytes # (Manual) PT INR APTT D-Dimer Heparin Anti-Xa Level POC ABG pH POC ABG pCO2 55.6 H POC ABG pO2 65 L Sodium Potassium Chloride Carbon Dioxide BUN Creatinine Glucose POC Glucose 160 H 115 H Lactic Acid Calcium Phosphorus Total Bilirubin C-Reactive Protein NT-Pro-B Natriuret Pep Total Protein Albumin Urine WBC (Auto) Urine Creatinine 08/17/18 08/18/18 08/18/18 21:47 01:42 05:42 WBC RBC Hgb Hct MCV MCH MCHC RDW Plt Count Lymph % (Auto) [place] % (Auto) Lymph # [place] # Seg Neutrophils % Seg Neuts % (Manual) Lymphocytes % (Manual) Monocytes % (Manual) Nucleated RBC % Seg Neutrophils # Seg Neutrophils # Man Lymphocytes # (Manual) Monocytes # (Manual) PT INR APTT D-Dimer Heparin Anti-Xa Level POC ABG pH POC ABG pCO2 POC ABG pO2 Sodium Potassium Chloride Carbon Dioxide BUN Creatinine Glucose POC Glucose 110 H 124 H 127 H Lactic Acid Calcium Phosphorus Total Bilirubin C-Reactive Protein NT-Pro-B Natriuret Pep Total Protein Albumin Urine WBC (Auto) Urine Creatinine 08/18/18 08/18/18 08/18/18 09:51 14:37 21:37 WBC RBC Hgb Hct MCV MCH MCHC RDW Plt Count Lymph % (Auto) [place] % (Auto) Lymph # [place] # Seg Neutrophils % Seg Neuts % (Manual) Lymphocytes % (Manual) Monocytes % (Manual) Nucleated RBC % Seg Neutrophils # Seg Neutrophils # Man Lymphocytes # (Manual) Monocytes # (Manual) PT INR APTT D-Dimer Heparin Anti-Xa Level POC ABG pH POC ABG pCO2 POC ABG pO2 Sodium Potassium Chloride Carbon Dioxide BUN Creatinine Glucose POC Glucose 162 H 130 H 133 H Lactic Acid Calcium Phosphorus Total Bilirubin C-Reactive Protein NT-Pro-B Natriuret Pep Total Protein Albumin Urine WBC (Auto) Urine Creatinine 08/19/18 08/19/18 08/19/18 01:47 04:55 04:55 WBC RBC 2.86 L Hgb 9.4 L Hct 28.6 L MCV 100 H MCH 33 H MCHC RDW 16.6 H Plt Count Lymph % (Auto) [place] % (Auto) Lymph # [place] # Seg Neutrophils % Seg Neuts % (Manual) Lymphocytes % (Manual) Monocytes % (Manual) Nucleated RBC % Seg Neutrophils # Seg Neutrophils # Man Lymphocytes # (Manual) Monocytes # (Manual) PT INR APTT D-Dimer Heparin Anti-Xa Level POC ABG pH POC ABG pCO2 POC ABG pO2 Sodium Potassium Chloride 97.8 L Carbon Dioxide 32 H BUN Creatinine 0.4 L Glucose 116 H POC Glucose 136 H Lactic Acid Calcium Phosphorus Total Bilirubin C-Reactive Protein NT-Pro-B Natriuret Pep Total Protein Albumin Urine WBC (Auto) Urine Creatinine 08/19/18 08/19/18 08/19/18 05:16 05:41 11:49 WBC RBC Hgb Hct MCV MCH MCHC RDW Plt Count Lymph % (Auto) [place] % (Auto) Lymph # [place] # Seg Neutrophils % Seg Neuts % (Manual) Lymphocytes % (Manual) Monocytes % (Manual) Nucleated RBC % Seg Neutrophils # Seg Neutrophils # Man Lymphocytes # (Manual) Monocytes # (Manual) PT INR APTT D-Dimer Heparin Anti-Xa Level POC ABG pH POC ABG pCO2 57.5 H POC ABG pO2 65 L Sodium Potassium Chloride Carbon Dioxide BUN Creatinine Glucose POC Glucose 119 H 143 H Lactic Acid Calcium Phosphorus Total Bilirubin C-Reactive Protein NT-Pro-B Natriuret Pep Total Protein Albumin Urine WBC (Auto) Urine Creatinine 08/19/18 08/19/18 08/20/18 15:13 21:45 06:03 WBC RBC Hgb Hct MCV MCH MCHC RDW Plt Count Lymph % (Auto) [place] % (Auto) Lymph # [place] # Seg Neutrophils % Seg Neuts % (Manual) Lymphocytes % (Manual) Monocytes % (Manual) Nucleated RBC % Seg Neutrophils # Seg Neutrophils # Man Lymphocytes # (Manual) Monocytes # (Manual) PT INR APTT D-Dimer Heparin Anti-Xa Level POC ABG pH POC ABG pCO2 POC ABG pO2 Sodium Potassium Chloride Carbon Dioxide BUN Creatinine Glucose POC Glucose 155 H 127 H 160 H Lactic Acid Calcium Phosphorus Total Bilirubin C-Reactive Protein NT-Pro-B Natriuret Pep Total Protein Albumin Urine WBC (Auto) Urine Creatinine 08/20/18 08/20/18 08/21/18 12:00 22:10 05:32 WBC RBC Hgb Hct MCV MCH MCHC RDW Plt Count Lymph % (Auto) [place] % (Auto) Lymph # [place] # Seg Neutrophils % Seg Neuts % (Manual) Lymphocytes % (Manual) Monocytes % (Manual) Nucleated RBC % Seg Neutrophils # Seg Neutrophils # Man Lymphocytes # (Manual) Monocytes # (Manual) PT INR APTT D-Dimer Heparin Anti-Xa Level POC ABG pH POC ABG pCO2 POC ABG pO2 Sodium Potassium Chloride Carbon Dioxide BUN Creatinine Glucose POC Glucose 143 H 125 H 121 H Lactic Acid Calcium Phosphorus Total Bilirubin C-Reactive Protein NT-Pro-B Natriuret Pep Total Protein Albumin Urine WBC (Auto) Urine Creatinine 08/21/18 08/21/18 08/22/18 17:37 22:19 05:30 WBC RBC Hgb Hct MCV MCH MCHC RDW Plt Count Lymph % (Auto) [place] % (Auto) Lymph # [place] # Seg Neutrophils % Seg Neuts % (Manual) Lymphocytes % (Manual) Monocytes % (Manual) Nucleated RBC % Seg Neutrophils # Seg Neutrophils # Man Lymphocytes # (Manual) Monocytes # (Manual) PT INR APTT D-Dimer Heparin Anti-Xa Level POC ABG pH POC ABG pCO2 POC ABG pO2 Sodium Potassium Chloride Carbon Dioxide BUN Creatinine Glucose POC Glucose 126 H 129 H 147 H Lactic Acid Calcium Phosphorus Total Bilirubin C-Reactive Protein NT-Pro-B Natriuret Pep Total Protein Albumin Urine WBC (Auto) Urine Creatinine 08/22/18 08/22/18 08/23/18 16:22 21:31 04:37 WBC RBC Hgb Hct MCV MCH MCHC RDW Plt Count Lymph % (Auto) [place] % (Auto) Lymph # [place] # Seg Neutrophils % Seg Neuts % (Manual) Lymphocytes % (Manual) Monocytes % (Manual) Nucleated RBC % Seg Neutrophils # Seg Neutrophils # Man Lymphocytes # (Manual) Monocytes # (Manual) PT INR APTT D-Dimer Heparin Anti-Xa Level POC ABG pH POC ABG pCO2 POC ABG pO2 Sodium Potassium Chloride Carbon Dioxide BUN Creatinine 0.5 L Glucose 141 H POC Glucose 141 H 107 H Lactic Acid Calcium Phosphorus Total Bilirubin C-Reactive Protein NT-Pro-B Natriuret Pep Total Protein Albumin Urine WBC (Auto) Urine Creatinine 08/23/18 08/24/18 08/24/18 04:37 05:31 13:56 WBC RBC 2.94 L Hgb 9.7 L Hct 30.0 L MCV 102 H MCH 33 H MCHC RDW 17.0 H Plt Count 509 H Lymph % (Auto) [place] % (Auto) Lymph # [place] # Seg Neutrophils % Seg Neuts % (Manual) Lymphocytes % (Manual) Monocytes % (Manual) Nucleated RBC % Seg Neutrophils # Seg Neutrophils # Man Lymphocytes # (Manual) Monocytes # (Manual) PT INR APTT D-Dimer Heparin Anti-Xa Level POC ABG pH POC ABG pCO2 POC ABG pO2 Sodium Potassium Chloride Carbon Dioxide BUN Creatinine Glucose POC Glucose 136 H 143 H Lactic Acid Calcium Phosphorus Total Bilirubin C-Reactive Protein NT-Pro-B Natriuret Pep Total Protein Albumin Urine WBC (Auto) Urine Creatinine 08/24/18 08/25/18 08/26/18 21:42 06:35 07:59 WBC RBC Hgb Hct MCV MCH MCHC RDW Plt Count Lymph % (Auto) [place] % (Auto) Lymph # [place] # Seg Neutrophils % Seg Neuts % (Manual) Lymphocytes % (Manual) Monocytes % (Manual) Nucleated RBC % Seg Neutrophils # Seg Neutrophils # Man Lymphocytes # (Manual) Monocytes # (Manual) PT INR APTT D-Dimer Heparin Anti-Xa Level POC ABG pH POC ABG pCO2 POC ABG pO2 Sodium Potassium Chloride Carbon Dioxide BUN Creatinine Glucose POC Glucose 107 H 119 H 125 H Lactic Acid Calcium Phosphorus Total Bilirubin C-Reactive Protein NT-Pro-B Natriuret Pep Total Protein Albumin Urine WBC (Auto) Urine Creatinine 08/26/18 08/26/18 08/26/18 12:23 17:06 21:26 WBC RBC Hgb Hct MCV MCH MCHC RDW Plt Count Lymph % (Auto) [place] % (Auto) Lymph # [place] # Seg Neutrophils % Seg Neuts % (Manual) Lymphocytes % (Manual) Monocytes % (Manual) Nucleated RBC % Seg Neutrophils # Seg Neutrophils # Man Lymphocytes # (Manual) Monocytes # (Manual) PT INR APTT D-Dimer Heparin Anti-Xa Level POC ABG pH POC ABG pCO2 POC ABG pO2 Sodium Potassium Chloride Carbon Dioxide BUN Creatinine Glucose POC Glucose 126 H 123 H 112 H Lactic Acid Calcium Phosphorus Total Bilirubin C-Reactive Protein NT-Pro-B Natriuret Pep Total Protein Albumin Urine WBC (Auto) Urine Creatinine 08/27/18 08/27/18 08/27/18 07:38 15:29 21:17 WBC RBC Hgb Hct MCV MCH MCHC RDW Plt Count Lymph % (Auto) [place] % (Auto) Lymph # [place] # Seg Neutrophils % Seg Neuts % (Manual) Lymphocytes % (Manual) Monocytes % (Manual) Nucleated RBC % Seg Neutrophils # Seg Neutrophils # Man Lymphocytes # (Manual) Monocytes # (Manual) PT INR APTT D-Dimer Heparin Anti-Xa Level POC ABG pH POC ABG pCO2 POC ABG pO2 Sodium Potassium Chloride Carbon Dioxide BUN Creatinine Glucose POC Glucose 162 H 141 H 125 H Lactic Acid Calcium Phosphorus Total Bilirubin C-Reactive Protein NT-Pro-B Natriuret Pep Total Protein Albumin Urine WBC (Auto) Urine Creatinine Chest x-ray: report reviewed (Near complete resolution of bilateral pulmonary infiltrates.) Allied health notes reviewed: nursing
[2018-08-28] MEDS: HumaLOG SUB-Q SCH ×3 (06:47→21:55)
[2018-08-28] MEDS: PULMICORT IH SCH ×2 (08:21→19:26)
[2018-08-28] MEDS: BROVANA NEBU IH SCH ×2 (08:21→19:26)
--- NOTE | 2018-08-28 10:16 | Progress Note ---
Assessment and Plan Assessment and plan: Continue T piece, wean FiO2 as tolerated -ID input appreciated, monitor off antibiotics patient is 73 yo with H/O COPD, PVD, HTN, HLD, Seizure Disorder, Skin Cancer presented with chest pain, shortness of breath. -He presented in A. fib with RVR, he was medically managed and transitioned from IV to oral medications -The patient suffered respiratory failure for which she was on the ventilator wh ich required prolonged weaning, therefore trach and PEG was placed on 08/11/19. The patient is currently on T piece with FiO2 which is being weaned currently 35% -The patient completed a course of antibiotics for treatment of bacteremia due to Streptococcus anginosus -He was medically treated for acute renal failure with IV fluids and that has not resolved -The patient also suffers a urethral stricture with obstruction and therefore we received a Osborne cath that was placed by urology which is not to be removed -He was medically treated for COPD exacerbation, and medications were optimized for his chronic conditions -The patient's is currently awaiting SNIF placement Diagnosis Septicemia Streptococcus anginous is bacteremia Left lower lobe pneumonia Acute hypoxia was a failure on mechanical ventilator greater than 96 hours Atrial fibrillation with RVR Acute renal failure due to vasomotor nephropathy, Hematuria/Urethral stricture. COPD exacerbation. Hypertension. Hyperlipidemia. Peripheral vascular disease. Disposition.Plan is acute placement, auth in progress History Interval history: Review of systems Constitutional: No fevers, no malaise, no joint pains CVS: No chest pain, no orthopnea, no dyspnea on exertion, no pedal edema GI: No abdominal pain, no diarrhea, no vomiting, no constipation Respiratory: No shortness of breath, no wheezing, no coughing Hospitalist Physical - Physical exam Narrative exam: General.: Appears well, no distress, nontoxic HEENT: Tracheostomy in place Neck: supple Cardiac: S1-S2 heard Lungs: clear to auscultation bilaterally Abdomen: soft , nontender, nondistended, bowel sounds positive Extremities: no edema clubbing or cyanosis Skin: no rash or lesions Neurologic: no gross focal deficits Psych: calm, and cooperative - Constitutional Vitals: Temp Pulse Resp BP Pulse Ox 97.7 F 74 20 127/67 94 08/28/18 05:52 08/28/18 08:45 08/28/18 08:45 08/28/18 05:52 08/28/18 08:46 General appearance: Present: other (intubated on mechanical ventilation) Results - Labs CBC & Chem 7: 08/23/18 04:37 08/23/18 04:37 Labs: Laboratory Last Values WBC 9.3 K/mm3 (4.5-11.0) 08/23/18 04:37 RBC 2.94 M/mm3 (3.65-5.03) L 08/23/18 04:37 Hgb 9.7 gm/dl (11.8-15.2) L 08/23/18 04:37 Hct 30.0 % (35.5-45.6) L 08/23/18 04:37 MCV 102 fl (84-94) H 08/23/18 04:37 MCH 33 pg (28-32) H 08/23/18 04:37 MCHC 33 % (32-34) 08/23/18 04:37 RDW 17.0 % (13.2-15.2) H 08/23/18 04:37 Plt Count 509 K/mm3 (140-440) H 08/23/18 04:37 Lymph % (Auto) 3.8 % (13.4-35.0) L 08/16/18 11:06 [place] % (Auto) 5.7 % (0.0-7.3) 08/16/18 11:06 Eos % (Auto) 0.6 % (0.0-4.3) 08/16/18 11:06 Baso % (Auto) 0.4 % (0.0-1.8) 08/16/18 11:06 Lymph # 0.4 K/mm3 (1.2-5.4) L 08/16/18 11:06 [place] # 0.6 K/mm3 (0.0-0.8) 08/16/18 11:06 Eos # 0.1 K/mm3 (0.0-0.4) 08/16/18 11:06 Baso # 0.0 K/mm3 (0.0-0.1) 08/16/18 11:06 Add Manual Diff Complete 08/08/18 02:09 Total Counted 100 08/08/18 02:09 Seg Neutrophils % 89.5 % (40.0-70.0) H 08/16/18 11:06 Seg Neuts % (Manual) 73.0 % (40.0-70.0) H 08/08/18 02:09 Band Neutrophils % 5.0 % 08/08/18 02:09 Lymphocytes % (Manual) 9.0 % (13.4-35.0) L 08/08/18 02:09 Reactive Lymphs % (Man) 0 % 08/08/18 02:09 Monocytes % (Manual) 10.0 % (0.0-7.3) H 08/08/18 02:09 Eosinophils % (Manual) 0 % (0.0-4.3) 08/08/18 02:09 Basophils % (Manual) 0 % (0.0-1.8) 08/08/18 02:09 Metamyelocytes % 3.0 % 08/08/18 02:09 Myelocytes % 0 % 08/08/18 02:09 Promyelocytes % 0 % 08/08/18 02:09 Blast Cells % 0 % 08/08/18 02:09 Nucleated RBC % Not Reportable 08/08/18 02:09 Seg Neutrophils # 9.1 K/mm3 (1.8-7.7) H 08/16/18 11:06 Seg Neutrophils # Man 10.7 K/mm3 (1.8-7.7) H 08/08/18 02:09 Band Neutrophils # 0.7 K/mm3 08/08/18 02:09 Lymphocytes # (Manual) 1.3 K/mm3 (1.2-5.4) 08/08/18 02:09 Abs React Lymphs (Man) 0.0 K/mm3 08/08/18 02:09 Monocytes # (Manual) 1.5 K/mm3 (0.0-0.8) H 08/08/18 02:09 Eosinophils # (Manual) 0.0 K/mm3 (0.0-0.4) 08/08/18 02:09 Basophils # (Manual) 0.0 K/mm3 (0.0-0.1) 08/08/18 02:09 Metamyelocytes # 0.4 K/mm3 08/08/18 02:09 Myelocytes # 0.0 K/mm3 08/08/18 02:09 Promyelocytes # 0.0 K/mm3 08/08/18 02:09 Blast Cells # 0.0 K/mm3 08/08/18 02:09 Pathologist Review 07/28/18 06:01 WBC Morphology Not Reportable 08/08/18 02:09 Hypersegmented Neuts Not Reportable 08/08/18 02:09 Hyposegmented Neuts Not Reportable 08/08/18 02:09 Hypogranular Neuts Not Reportable 08/08/18 02:09 Smudge Cells Not Reportable 08/08/18 02:09 Toxic Granulation Not Reportable 08/08/18 02:09 Toxic Vacuolation Not Reportable 08/08/18 02:09 Dohle Bodies Not Reportable 08/08/18 02:09 Pelger-Huet Anomaly Not Reportable 08/08/18 02:09 Janiya Rods Not Reportable 08/08/18 02:09 Platelet Estimate Appears normal 08/08/18 02:09 Clumped Platelets Not Reportable 08/08/18 02:09 Plt Clumps, EDTA Not Reportable 08/08/18 02:09 Large Platelets Not Reportable 08/08/18 02:09 Giant Platelets Not Reportable 08/08/18 02:09 Platelet Satelliting Not Reportable 08/08/18 02:09 Plt Morphology Comment Not Reportable 08/08/18 02:09 RBC Morphology Not Reportable 08/08/18 02:09 Dimorphic RBCs Not Reportable 08/08/18 02:09 Polychromasia Not Reportable 08/08/18 02:09 Hypochromasia Few 08/08/18 02:09 Poikilocytosis Not Reportable 08/08/18 02:09 Anisocytosis 1+ 08/08/18 02:09 Microcytosis Not Reportable 08/08/18 02:09 Macrocytosis Not Reportable 08/08/18 02:09 Spherocytes Not Reportable 08/08/18 02:09 Pappenheimer Bodies Not Reportable 08/08/18 02:09 Sickle Cells Not Reportable 08/08/18 02:09 Target Cells Not Reportable 08/08/18 02:09 Tear Drop Cells Not Reportable 08/08/18 02:09 Ovalocytes Not Reportable 08/08/18 02:09 Stomatocytes Few 08/08/18 02:09 Helmet Cells Not Reportable 08/08/18 02:09 Lr-Goss Bodies Not Reportable 08/08/18 02:09 [place] Rings Not Reportable 08/08/18 02:09 Armando Cells Not Reportable 08/08/18 02:09 Bite Cells Not Reportable 08/08/18 02:09 Crenated Cell Not Reportable 08/08/18 02:09 Elliptocytes Not Reportable 08/08/18 02:09 Acanthocytes (Spur) Not Reportable 08/08/18 02:09 Rouleaux Not Reportable 08/08/18 02:09 Hemoglobin C Crystals Not Reportable 08/08/18 02:09 Schistocytes Not Reportable 08/08/18 02:09 Malaria parasites Not Reportable 08/08/18 02:09 Jigar Bodies Not Reportable 08/08/18 02:09 Hem Pathologist Commnt No 08/08/18 02:09 PT 13.4 Sec. (12.2-14.9) 08/07/18 15:08 INR 0.98 (0.87-1.13) 08/07/18 15:08 APTT 23.2 Sec. (24.2-36.6) L 08/07/18 15:08 D-Dimer 798.17 ng/mlDDU (0-234) H 07/27/18 15:52 Heparin Anti-Xa Level 1.18 U.I./ml (0.3-0.7) H 08/12/18 14:56 POC ABG pH 7.370 (7.35-7.45) 08/19/18 05:16 POC ABG pCO2 57.5 (35-45) H 08/19/18 05:16 POC ABG pO2 65 (80-105) L 08/19/18 05:16 POC ABG HCO3 33.2 08/19/18 05:16 POC ABG Total CO2 35 08/19/18 05:16 POC ABG O2 Sat 91 08/19/18 05:16 POC ABG Base Excess 8 08/19/18 05:16 FiO2 40 % 08/19/18 05:16 Sodium 138 mmol/L (137-145) 08/23/18 04:37 Potassium 4.0 mmol/L (3.6-5.0) 08/23/18 04:37 Chloride 99.0 mmol/L (98-107) 08/23/18 04:37 Carbon Dioxide 30 mmol/L (22-30) 08/23/18 04:37 Anion Gap 13 mmol/L 08/23/18 04:37 BUN 16 mg/dL (9-20) 08/23/18 04:37 Creatinine 0.5 mg/dL (0.8-1.5) L 08/23/18 04:37 Estimated GFR > 60 ml/min 08/23/18 04:37 BUN/Creatinine Ratio 32 % 08/23/18 04:37 Glucose 141 mg/dL (75-100) H 08/23/18 04:37 POC Glucose 130 (70-105) H 08/28/18 05:56 Lactic Acid 1.30 mmol/L (0.7-2.0) 08/03/18 16:48 Calcium 8.8 mg/dL (8.4-10.2) 08/23/18 04:37 Phosphorus 3.30 mg/dL (2.5-4.5) 08/19/18 04:55 Magnesium 2.30 mg/dL (1.7-2.3) 08/19/18 04:55 Total Bilirubin 1.30 mg/dL (0.1-1.2) H 07/27/18 12:59 AST 15 units/L (5-40) 07/27/18 12:59 ALT 16 units/L (7-56) 07/27/18 12:59 Alkaline Phosphatase 62 units/L (35-129) 07/27/18 12:59 Troponin T < 0.010 ng/mL (0.00-0.029) 07/27/18 12:59 C-Reactive Protein 2.30 mg/dL (0.00-1.30) H 08/03/18 16:48 NT-Pro-B Natriuret Pep 3913 pg/mL (0-900) H 07/27/18 12:59 Total Protein 6.2 g/dL (6.3-8.2) L 07/27/18 12:59 Albumin 3.6 g/dL (3.9-5) L 07/27/18 12:59 Albumin/Globulin Ratio 1.4 % 07/27/18 12:59 Triglycerides 64 mg/dL (2-149) 08/08/18 14:02 TSH 1.180 mlU/mL (0.270-4.200) 07/27/18 15:52 Free T4 1.28 ng/dL (0.76-1.46) 07/27/18 15:52 Urine Color Yellow (Yellow) 08/11/18 12:50 Urine Turbidity Clear (Clear) 08/11/18 12:50 Urine pH 6.0 (5.0-7.0) 08/11/18 12:50 Ur Specific [place] 1.015 (1.003-1.030) 08/11/18 12:50 Urine Protein <15 mg/dl mg/dL (Negative) 08/11/18 12:50 Urine Glucose (UA) 50 mg/dL (Negative) 08/11/18 12:50 Urine Ketones Neg mg/dL (Negative) 08/11/18 12:50 Urine Blood Neg (Negative) 08/11/18 12:50 Urine Nitrite Neg (Negative) 08/11/18 12:50 Urine Bilirubin Neg (Negative) 08/11/18 12:50 Urine Urobilinogen 4.0 mg/dL (<2.0) 08/11/18 12:50 Ur Leukocyte Esterase Neg (Negative) 08/11/18 12:50 Urine WBC (Auto) 2.0 /HPF (0.0-6.0) 08/11/18 12:50 Urine RBC (Auto) 2.0 /HPF (0.0-6.0) 08/11/18 12:50 U Epithel Cells (Auto) 2.0 /HPF (0-13.0) 07/29/18 09:24 Urine Bacteria (Auto) 1+ /HPF (Negative) 08/11/18 12:50 Urine Mucus Few /HPF 08/11/18 12:50 Urine Yeast ([place]) 1+ /HPF 07/29/18 09:24 Urine Creatinine 72.3 mg/dL (0.1-20.0) H 07/29/18 09:24 Urine Sodium 12 mmol/L 07/29/18 09:24 Random Vancomycin 9.2 ug/mL (0-40.0) 07/29/18 04:21 Nutrition/Malnutrition Assess - Dietary Evaluation Nutrition/Malnutrition Findings: Nutrition Notes Start: 07/28/18 10:54 Freq: Status: Active Protocol: Document 08/23/18 14:09 CT (Rec: 08/23/18 14:53 CT [id number]) Co-Sign 08/23/18 14:09 RM Nutrition Notes Initial or Follow up Reassessment Current Diagnosis Acute Kidney Injury COPD Sepsis Hypertension Heart Failure Respiratory Failure Other Pertinent Diagnosis Hx of Skin Cancer Current Diet Nepro at 50ml/hr Labs/Tests Reviewed Pertinent Medications Reviewed Height 5 ft 8 in Weight 76 kg [place] Body Weight (lbs) 154.0 BMI 25.4 Weight change and time frame Recorded wt. loss likely d/t fluid change. Subjective/Other Information Nepro infusing at goal rate of 50mL/hr, well tolerated per RN. Burn Absent Trauma Absent #1 Nutrition Diagnosis Inadequate oral intake Diagnosis Progress(for reassessment Continues documentation) Is patient on ventilator? Yes Is Patient Ambulatory and/or Out of Bed No REE-([facility]-confined to bed) 1657.804 Calculation Used for Recommendations [facility] Additional Notes protein (1.2-2g/kg): 91-152g fluid: 1mL/kcal Nutrition Intervention Change Diet Order: Continue TF Nutrition Support: Nepro at 50mL/hr 250 mL free water flush q4h or per MD. Kcal 2,160 Protein (gm) 97 Fluid (mL) 872 Goal #1 TF tolerance and rate Goal #2 Continue to meet at least 80% of kcal needs and 80-100% of protein needs. Follow-Up By: 08/30/18 Additional Comments F/U: stable TF
[2018-08-28] MEDS: ELIQUIS PO SCH ×2 (10:19→21:54)
[2018-08-28] MEDS: PRAVACHOL PO SCH (10:19)
[2018-08-28] MEDS: PEPCID PO SCH ×2 (10:19→21:54)
[2018-08-28] MEDS: CORDARONE PO SCH ×2 (10:19→21:43)
[2018-08-28] MEDS: VITAMIN B-12 PO SCH (10:19)
[2018-08-28] MEDS: SODIUM CHLORIDE FLUSH SYRINGE 10 ML IV SCH ×2 (10:20→21:54)
[2018-08-28] MEDS: TYLENOL FEEDTUBE PRN (10:24)
--- NOTE | 2018-08-28 15:33 | Progress Note ---
Assessment and Plan Patient alert, awake and resting on T tube. FIO2 35% O2 saturation 96%. No acute respiratory distress.Patient having slight increase in respiratory secretions - Patient Problems (1) Acute respiratory failure Current Visit: Yes Status: Acute Qualifiers: Respiratory failure complication: hypoxia Qualified Code(s): J96.01 - Acute respiratory failure with hypoxia Plan to address problem: T tube FIO2 35%. Brovanna/Budesonide aerosol treatments q 12 hours. Albuterol/atrovent aerosol treatments q 6 hours PRN for shortness of breath. Patient is on Apixaban. Continue famotidine. Respiratory suction as needed. (2) Atrial fibrillation with RVR Current Visit: Yes Status: Acute Plan to address problem: Patient is on Apixaban. Management as per cardiology. (3) CHF (congestive heart failure) Current Visit: Yes Status: Acute Qualifiers: Heart failure type: systolic Heart failure chronicity: acute Qualified Code(s): I50.21 - Acute systolic (congestive) heart failure Plan to address problem: Management as per primary care and cardiology. (4) Pneumonia Current Visit: Yes Status: Acute Plan to address problem: Finished course of cefepime. (5) COPD (chronic obstructive pulmonary disease) Current Visit: Yes Status: Chronic Plan to address problem: T tube FIO2 35%. Brovanna/Budesonide aerosol treatments q 12 hours. Albuterol/atrovent aerosol treatments q 6 hours PRN for shortness of breath. Patient is on Apixaban. Continue famotidine. Respiratory suctioning as needed. (6) Hypertension Current Visit: Yes Status: Chronic Qualifiers: Hypertension type: essential hypertension Qualified Code(s): I10 - Essential (primary) hypertension Plan to address problem: Management as per primary care. Subjective Date of service: 08/28/18 Principal diagnosis: Acute hypoxemic respiratory failure; A-fib with RVR; Possible CHF; H/O DVT Interval history: Patient alert, awake and resting on T tube. FIO2 35% O2 saturation 96%. No acute respiratory distress.Patient having slight increase in respiratory secretions.. Objective Vital Signs - 12hr 08/28/18 08/28/18 08/28/18 05:52 08:21 08:45 Temperature 97.7 F Pulse Rate 71 Pulse Rate [ 74 74 Bilateral] Respiratory 16 Rate Respiratory 18 20 Rate [Bilateral ] Blood Pressure 127/67 O2 Sat by Pulse 92 93 Oximetry O2 Sat by Pulse Oximetry [ Assessment] 08/28/18 08/28/18 08/28/18 08:46 14:33 14:34 Temperature Pulse Rate Pulse Rate [ Bilateral] Respiratory Rate Respiratory Rate [Bilateral ] Blood Pressure O2 Sat by Pulse 95 Oximetry O2 Sat by Pulse 94 95 Oximetry [ Assessment] Constitutional: no acute distress, alert, other (elderly looking CM, normocephalic and atraumatic with normal respiratory effort) Eyes: non-icteric ENT: oropharynx moist, other (s/p tracheosomy) Neck: supple, no lymphadenopathy, no JVD, other (No thyromegaly) Effort: mildly labored Ascultation: Bilateral: diminished breath sounds, rhonchi Percussion: Bilateral: not dull Cardiovascular: irregular rhythm, other (+ systolic murmur) Gastrointestinal: normoactive bowel sounds, soft, non-tender, non-distended, other (No palpable HSM) Integumentary: rash, other (upper extremity edema) Extremities: no cyanosis, pink and warm, pulses normal, no ischemia or petechiae Neurologic: normal mental status, non-focal exam (grossly), pupils equal and round, CN II-XII normal, other (moves all extemities) Psychiatric: mood appropriate, affect normal CBC and BMP: 08/23/18 04:37 08/23/18 04:37 ABG, PT/INR, D-dimer: ABG POC ABG pH 7.370 (7.35-7.45) 08/19/18 05:16 POC ABG pCO2 57.5 (35-45) H 08/19/18 05:16 POC ABG pO2 65 (80-105) L 08/19/18 05:16 POC ABG HCO3 33.2 08/19/18 05:16 POC ABG Total CO2 35 08/19/18 05:16 POC ABG O2 Sat 91 08/19/18 05:16 PT/INR, D-dimer PT 13.4 Sec. (12.2-14.9) 08/07/18 15:08 INR 0.98 (0.87-1.13) 08/07/18 15:08 D-Dimer 798.17 ng/mlDDU (0-234) H 07/27/18 15:52 Abnormal lab findings: Abnormal Labs 07/27/18 07/27/18 07/27/18 12:59 12:59 12:59 WBC 15.8 H RBC Hgb Hct MCV 104 H MCH 34 H MCHC RDW 16.3 H Plt Count Lymph % (Auto) [place] % (Auto) Lymph # [place] # Seg Neutrophils % Seg Neuts % (Manual) 88.0 H Lymphocytes % (Manual) 3.0 L Monocytes % (Manual) Nucleated RBC % Seg Neutrophils # Seg Neutrophils # Man 13.9 H Lymphocytes # (Manual) 0.5 L Monocytes # (Manual) PT 17.0 H INR 1.34 H APTT D-Dimer Heparin Anti-Xa Level POC ABG pH POC ABG pCO2 POC ABG pO2 Sodium Potassium Chloride Carbon Dioxide 21 L BUN 38 H Creatinine 1.6 H Glucose POC Glucose Lactic Acid Calcium Phosphorus Total Bilirubin 1.30 H C-Reactive Protein NT-Pro-B Natriuret Pep 3913 H Total Protein 6.2 L Albumin 3.6 L Urine WBC (Auto) Urine Creatinine 07/27/18 07/27/18 07/27/18 15:52 16:12 17:09 WBC RBC Hgb Hct MCV MCH MCHC RDW Plt Count Lymph % (Auto) [place] % (Auto) Lymph # [place] # Seg Neutrophils % Seg Neuts % (Manual) Lymphocytes % (Manual) Monocytes % (Manual) Nucleated RBC % Seg Neutrophils # Seg Neutrophils # Man Lymphocytes # (Manual) Monocytes # (Manual) PT 16.0 H INR 1.24 H APTT D-Dimer 798.17 H Heparin Anti-Xa Level POC ABG pH POC ABG pCO2 POC ABG pO2 Sodium Potassium Chloride Carbon Dioxide BUN Creatinine Glucose POC Glucose Lactic Acid 5.00 H* Calcium Phosphorus Total Bilirubin C-Reactive Protein NT-Pro-B Natriuret Pep Total Protein Albumin Urine WBC (Auto) Urine Creatinine 07/27/18 07/27/18 07/27/18 17:59 18:07 21:31 WBC RBC Hgb Hct MCV MCH MCHC RDW Plt Count Lymph % (Auto) [place] % (Auto) Lymph # [place] # Seg Neutrophils % Seg Neuts % (Manual) Lymphocytes % (Manual) Monocytes % (Manual) Nucleated RBC % Seg Neutrophils # Seg Neutrophils # Man Lymphocytes # (Manual) Monocytes # (Manual) PT INR APTT D-Dimer Heparin Anti-Xa Level POC ABG pH 7.344 L POC ABG pCO2 POC ABG pO2 36 L Sodium Potassium Chloride Carbon Dioxide BUN Creatinine Glucose POC Glucose Lactic Acid 5.20 H* 5.00 H* Calcium Phosphorus Total Bilirubin C-Reactive Protein NT-Pro-B Natriuret Pep Total Protein Albumin Urine WBC (Auto) Urine Creatinine 07/27/18 07/27/18 07/27/18 21:57 22:42 23:26 WBC RBC Hgb Hct MCV MCH MCHC RDW Plt Count Lymph % (Auto) [place] % (Auto) Lymph # [place] # Seg Neutrophils % Seg Neuts % (Manual) Lymphocytes % (Manual) Monocytes % (Manual) Nucleated RBC % Seg Neutrophils # Seg Neutrophils # Man Lymphocytes # (Manual) Monocytes # (Manual) PT INR APTT D-Dimer Heparin Anti-Xa Level POC ABG pH 7.199 L POC ABG pCO2 62.0 H POC ABG pO2 Sodium Potassium Chloride Carbon Dioxide BUN Creatinine Glucose POC Glucose Lactic Acid 4.70 H* 5.00 H* Calcium Phosphorus Total Bilirubin C-Reactive Protein NT-Pro-B Natriuret Pep Total Protein Albumin Urine WBC (Auto) Urine Creatinine 07/28/18 07/28/18 07/28/18 00:45 05:40 05:58 WBC RBC Hgb Hct MCV MCH MCHC RDW Plt Count Lymph % (Auto) [place] % (Auto) Lymph # [place] # Seg Neutrophils % Seg Neuts % (Manual) Lymphocytes % (Manual) Monocytes % (Manual) Nucleated RBC % Seg Neutrophils # Seg Neutrophils # Man Lymphocytes # (Manual) Monocytes # (Manual) PT INR APTT D-Dimer Heparin Anti-Xa Level 0.11 L POC ABG pH 7.186 L POC ABG pCO2 60.1 H POC ABG pO2 68 L Sodium Potassium Chloride Carbon Dioxide BUN Creatinine Glucose POC Glucose Lactic Acid 4.70 H* Calcium Phosphorus Total Bilirubin C-Reactive Protein NT-Pro-B Natriuret Pep Total Protein Albumin Urine WBC (Auto) Urine Creatinine 07/28/18 07/28/18 07/28/18 06:01 06:01 07:19 WBC 12.5 H RBC 3.51 L Hgb 11.5 L Hct MCV 104 H MCH 33 H MCHC RDW 16.6 H Plt Count Lymph % (Auto) [place] % (Auto) Lymph # [place] # Seg Neutrophils % Seg Neuts % (Manual) Lymphocytes % (Manual) Monocytes % (Manual) Nucleated RBC % Seg Neutrophils # Seg Neutrophils # Man Lymphocytes # (Manual) Monocytes # (Manual) PT INR APTT D-Dimer Heparin Anti-Xa Level 0.14 L POC ABG pH POC ABG pCO2 POC ABG pO2 Sodium 135 L Potassium 5.1 H Chloride 95.0 L Carbon Dioxide 21 L BUN 54 H Creatinine 2.6 H D Glucose POC Glucose Lactic Acid Calcium Phosphorus Total Bilirubin C-Reactive Protein NT-Pro-B Natriuret Pep Total Protein Albumin Urine WBC (Auto) Urine Creatinine 07/28/18 07/28/18 07/28/18 07:19 09:20 11:06 WBC RBC Hgb Hct MCV MCH MCHC RDW Plt Count Lymph % (Auto) [place] % (Auto) Lymph # [place] # Seg Neutrophils % Seg Neuts % (Manual) Lymphocytes % (Manual) Monocytes % (Manual) Nucleated RBC % Seg Neutrophils # Seg Neutrophils # Man Lymphocytes # (Manual) Monocytes # (Manual) PT INR APTT D-Dimer Heparin Anti-Xa Level POC ABG pH 7.266 L POC ABG pCO2 49.7 H POC ABG pO2 74 L Sodium Potassium Chloride Carbon Dioxide BUN Creatinine Glucose POC Glucose Lactic Acid 4.00 H* 3.90 H* Calcium Phosphorus Total Bilirubin C-Reactive Protein NT-Pro-B Natriuret Pep Total Protein Albumin Urine WBC (Auto) Urine Creatinine 07/28/18 07/28/18 07/28/18 15:06 20:45 23:36 WBC RBC Hgb Hct MCV MCH MCHC RDW Plt Count Lymph % (Auto) [place] % (Auto) Lymph # [place] # Seg Neutrophils % Seg Neuts % (Manual) Lymphocytes % (Manual) Monocytes % (Manual) Nucleated RBC % Seg Neutrophils # Seg Neutrophils # Man Lymphocytes # (Manual) Monocytes # (Manual) PT INR APTT D-Dimer Heparin Anti-Xa Level 0.15 L POC ABG pH POC ABG pCO2 POC ABG pO2 Sodium 134 L Potassium 5.2 H Chloride Carbon Dioxide BUN 58 H Creatinine 2.1 H Glucose 110 H POC Glucose 125 H Lactic Acid Calcium Phosphorus Total Bilirubin C-Reactive Protein NT-Pro-B Natriuret Pep Total Protein Albumin Urine WBC (Auto) Urine Creatinine 07/29/18 07/29/18 07/29/18 01:12 04:21 04:21 WBC RBC 3.21 L Hgb 10.8 L Hct 33.0 L MCV 103 H MCH 34 H MCHC RDW 16.4 H Plt Count Lymph % (Auto) [place] % (Auto) Lymph # [place] # Seg Neutrophils % Seg Neuts % (Manual) Lymphocytes % (Manual) 11.0 L Monocytes % (Manual) Nucleated RBC % Seg Neutrophils # Seg Neutrophils # Man Lymphocytes # (Manual) 1.0 L Monocytes # (Manual) PT INR APTT D-Dimer Heparin Anti-Xa Level 0.21 L POC ABG pH POC ABG pCO2 POC ABG pO2 Sodium Potassium Chloride Carbon Dioxide BUN 48 H Creatinine 1.6 H Glucose 166 H POC Glucose Lactic Acid Calcium Phosphorus Total Bilirubin C-Reactive Protein NT-Pro-B Natriuret Pep Total Protein Albumin Urine WBC (Auto) Urine Creatinine 07/29/18 07/29/18 07/29/18 05:19 08:16 09:24 WBC RBC Hgb Hct MCV MCH MCHC RDW Plt Count Lymph % (Auto) [place] % (Auto) Lymph # [place] # Seg Neutrophils % Seg Neuts % (Manual) Lymphocytes % (Manual) Monocytes % (Manual) Nucleated RBC % Seg Neutrophils # Seg Neutrophils # Man Lymphocytes # (Manual) Monocytes # (Manual) PT INR APTT D-Dimer Heparin Anti-Xa Level 0.25 L POC ABG pH POC ABG pCO2 POC ABG pO2 Sodium Potassium Chloride Carbon Dioxide BUN Creatinine Glucose POC Glucose 181 H Lactic Acid Calcium Phosphorus Total Bilirubin C-Reactive Protein NT-Pro-B Natriuret Pep Total Protein Albumin Urine WBC (Auto) 29.0 H Urine Creatinine 07/29/18 07/29/18 07/29/18 09:24 10:00 15:03 WBC RBC Hgb Hct MCV MCH MCHC RDW Plt Count Lymph % (Auto) [place] % (Auto) Lymph # [place] # Seg Neutrophils % Seg Neuts % (Manual) Lymphocytes % (Manual) Monocytes % (Manual) Nucleated RBC % Seg Neutrophils # Seg Neutrophils # Man Lymphocytes # (Manual) Monocytes # (Manual) PT INR APTT D-Dimer Heparin Anti-Xa Level POC ABG pH POC ABG pCO2 POC ABG pO2 Sodium Potassium Chloride Carbon Dioxide BUN Creatinine Glucose POC Glucose 195 H 167 H Lactic Acid Calcium Phosphorus Total Bilirubin C-Reactive Protein NT-Pro-B Natriuret Pep Total Protein Albumin Urine WBC (Auto) Urine Creatinine 72.3 H 07/29/18 07/29/18 07/30/18 17:51 21:32 01:38 WBC RBC Hgb Hct MCV MCH MCHC RDW Plt Count Lymph % (Auto) [place] % (Auto) Lymph # [place] # Seg Neutrophils % Seg Neuts % (Manual) Lymphocytes % (Manual) Monocytes % (Manual) Nucleated RBC % Seg Neutrophils # Seg Neutrophils # Man Lymphocytes # (Manual) Monocytes # (Manual) PT INR APTT D-Dimer Heparin Anti-Xa Level POC ABG pH POC ABG pCO2 POC ABG pO2 Sodium Potassium Chloride Carbon Dioxide BUN Creatinine Glucose POC Glucose 167 H 217 H 194 H Lactic Acid Calcium Phosphorus Total Bilirubin C-Reactive Protein NT-Pro-B Natriuret Pep Total Protein Albumin Urine WBC (Auto) Urine Creatinine 07/30/18 07/30/18 07/30/18 03:21 05:13 10:18 WBC RBC Hgb Hct MCV MCH MCHC RDW Plt Count Lymph % (Auto) [place] % (Auto) Lymph # [place] # Seg Neutrophils % Seg Neuts % (Manual) Lymphocytes % (Manual) Monocytes % (Manual) Nucleated RBC % Seg Neutrophils # Seg Neutrophils # Man Lymphocytes # (Manual) Monocytes # (Manual) PT INR APTT D-Dimer Heparin Anti-Xa Level POC ABG pH POC ABG pCO2 50.3 H POC ABG pO2 78 L Sodium Potassium Chloride Carbon Dioxide BUN 41 H Creatinine Glucose 202 H POC Glucose 151 H Lactic Acid Calcium Phosphorus Total Bilirubin C-Reactive Protein NT-Pro-B Natriuret Pep Total Protein Albumin Urine WBC (Auto) Urine Creatinine 07/30/18 07/30/18 07/30/18 11:29 16:28 18:12 WBC RBC Hgb Hct MCV MCH MCHC RDW Plt Count Lymph % (Auto) [place] % (Auto) Lymph # [place] # Seg Neutrophils % Seg Neuts % (Manual) Lymphocytes % (Manual) Monocytes % (Manual) Nucleated RBC % Seg Neutrophils # Seg Neutrophils # Man Lymphocytes # (Manual) Monocytes # (Manual) PT INR APTT D-Dimer Heparin Anti-Xa Level POC ABG pH 7.326 L POC ABG pCO2 53.2 H POC ABG pO2 70 L Sodium Potassium Chloride Carbon Dioxide BUN Creatinine Glucose POC Glucose 247 H 212 H Lactic Acid Calcium Phosphorus Total Bilirubin C-Reactive Protein NT-Pro-B Natriuret Pep Total Protein Albumin Urine WBC (Auto) Urine Creatinine 07/30/18 07/30/18 07/31/18 20:08 21:52 01:59 WBC RBC Hgb Hct MCV MCH MCHC RDW Plt Count Lymph % (Auto) [place] % (Auto) Lymph # [place] # Seg Neutrophils % Seg Neuts % (Manual) Lymphocytes % (Manual) Monocytes % (Manual) Nucleated RBC % Seg Neutrophils # Seg Neutrophils # Man Lymphocytes # (Manual) Monocytes # (Manual) PT INR APTT D-Dimer Heparin Anti-Xa Level POC ABG pH POC ABG pCO2 POC ABG pO2 Sodium Potassium Chloride Carbon Dioxide BUN Creatinine Glucose POC Glucose 205 H 215 H 242 H Lactic Acid Calcium Phosphorus Total Bilirubin C-Reactive Protein NT-Pro-B Natriuret Pep Total Protein Albumin Urine WBC (Auto) Urine Creatinine 07/31/18 07/31/18 07/31/18 03:14 03:14 04:55 WBC RBC Hgb 10.6 L Hct 33.2 L MCV MCH MCHC RDW Plt Count Lymph % (Auto) [place] % (Auto) Lymph # [place] # Seg Neutrophils % Seg Neuts % (Manual) Lymphocytes % (Manual) Monocytes % (Manual) Nucleated RBC % Seg Neutrophils # Seg Neutrophils # Man Lymphocytes # (Manual) Monocytes # (Manual) PT INR APTT D-Dimer Heparin Anti-Xa Level POC ABG pH 7.331 L POC ABG pCO2 67.1 H POC ABG pO2 Sodium Potassium Chloride Carbon Dioxide BUN 36 H Creatinine 0.7 L Glucose 242 H POC Glucose Lactic Acid Calcium 10.3 H Phosphorus 2.30 L Total Bilirubin C-Reactive Protein NT-Pro-B Natriuret Pep Total Protein Albumin Urine WBC (Auto) Urine Creatinine 07/31/18 07/31/18 07/31/18 05:37 10:08 14:07 WBC RBC Hgb Hct MCV MCH MCHC RDW Plt Count Lymph % (Auto) [place] % (Auto) Lymph # [place] # Seg Neutrophils % Seg Neuts % (Manual) Lymphocytes % (Manual) Monocytes % (Manual) Nucleated RBC % Seg Neutrophils # Seg Neutrophils # Man Lymphocytes # (Manual) Monocytes # (Manual) PT INR APTT D-Dimer Heparin Anti-Xa Level POC ABG pH POC ABG pCO2 POC ABG pO2 Sodium Potassium Chloride Carbon Dioxide BUN Creatinine Glucose POC Glucose 193 H 247 H 225 H Lactic Acid Calcium Phosphorus Total Bilirubin C-Reactive Protein NT-Pro-B Natriuret Pep Total Protein Albumin Urine WBC (Auto) Urine Creatinine 07/31/18 07/31/18 08/01/18 18:12 21:34 02:00 WBC RBC Hgb Hct MCV MCH MCHC RDW Plt Count Lymph % (Auto) [place] % (Auto) Lymph # [place] # Seg Neutrophils % Seg Neuts % (Manual) Lymphocytes % (Manual) Monocytes % (Manual) Nucleated RBC % Seg Neutrophils # Seg Neutrophils # Man Lymphocytes # (Manual) Monocytes # (Manual) PT INR APTT D-Dimer Heparin Anti-Xa Level POC ABG pH POC ABG pCO2 POC ABG pO2 Sodium Potassium Chloride Carbon Dioxide BUN Creatinine Glucose POC Glucose 197 H 204 H 239 H Lactic Acid Calcium Phosphorus Total Bilirubin C-Reactive Protein NT-Pro-B Natriuret Pep Total Protein Albumin Urine WBC (Auto) Urine Creatinine 08/01/18 08/01/18 08/01/18 04:13 04:37 05:29 WBC RBC Hgb Hct MCV MCH MCHC RDW Plt Count Lymph % (Auto) [place] % (Auto) Lymph # [place] # Seg Neutrophils % Seg Neuts % (Manual) Lymphocytes % (Manual) Monocytes % (Manual) Nucleated RBC % Seg Neutrophils # Seg Neutrophils # Man Lymphocytes # (Manual) Monocytes # (Manual) PT INR APTT D-Dimer Heparin Anti-Xa Level POC ABG pH 7.296 L POC ABG pCO2 81.9 H POC ABG pO2 190 H Sodium 150 H D Potassium Chloride Carbon Dioxide 37 H D BUN 37 H Creatinine 0.6 L Glucose 223 H POC Glucose 219 H Lactic Acid Calcium Phosphorus Total Bilirubin C-Reactive Protein NT-Pro-B Natriuret Pep Total Protein Albumin Urine WBC (Auto) Urine Creatinine 08/01/18 08/01/18 08/01/18 09:28 11:00 17:36 WBC RBC Hgb Hct MCV MCH MCHC RDW Plt Count Lymph % (Auto) [place] % (Auto) Lymph # [place] # Seg Neutrophils % Seg Neuts % (Manual) Lymphocytes % (Manual) Monocytes % (Manual) Nucleated RBC % Seg Neutrophils # Seg Neutrophils # Man Lymphocytes # (Manual) Monocytes # (Manual) PT INR APTT D-Dimer Heparin Anti-Xa Level POC ABG pH POC ABG pCO2 61.2 H POC ABG pO2 69 L Sodium Potassium Chloride Carbon Dioxide BUN Creatinine Glucose POC Glucose 185 H 234 H Lactic Acid Calcium Phosphorus Total Bilirubin C-Reactive Protein NT-Pro-B Natriuret Pep Total Protein Albumin Urine WBC (Auto) Urine Creatinine 08/01/18 08/02/18 08/02/18 21:54 00:08 00:44 WBC RBC Hgb Hct MCV MCH MCHC RDW Plt Count Lymph % (Auto) [place] % (Auto) Lymph # [place] # Seg Neutrophils % Seg Neuts % (Manual) Lymphocytes % (Manual) Monocytes % (Manual) Nucleated RBC % Seg Neutrophils # Seg Neutrophils # Man Lymphocytes # (Manual) Monocytes # (Manual) PT INR APTT D-Dimer Heparin Anti-Xa Level 0.77 H POC ABG pH POC ABG pCO2 66.4 H POC ABG pO2 64 L Sodium Potassium Chloride Carbon Dioxide BUN Creatinine Glucose POC Glucose 242 H Lactic Acid Calcium Phosphorus Total Bilirubin C-Reactive Protein NT-Pro-B Natriuret Pep Total Protein Albumin Urine WBC (Auto) Urine Creatinine 08/02/18 08/02/18 08/02/18 02:46 04:45 04:45 WBC RBC Hgb 10.7 L Hct 33.7 L MCV MCH MCHC RDW Plt Count Lymph % (Auto) [place] % (Auto) Lymph # [place] # Seg Neutrophils % Seg Neuts % (Manual) Lymphocytes % (Manual) Monocytes % (Manual) Nucleated RBC % Seg Neutrophils # Seg Neutrophils # Man Lymphocytes # (Manual) Monocytes # (Manual) PT INR APTT D-Dimer Heparin Anti-Xa Level POC ABG pH POC ABG pCO2 POC ABG pO2 Sodium 152 H Potassium Chloride 108.1 H Carbon Dioxide 39 H BUN 38 H Creatinine 0.6 L Glucose 226 H POC Glucose 206 H Lactic Acid Calcium Phosphorus Total Bilirubin C-Reactive Protein NT-Pro-B Natriuret Pep Total Protein Albumin Urine WBC (Auto) Urine Creatinine 08/02/18 08/02/18 08/02/18 05:31 09:46 14:23 WBC RBC Hgb Hct MCV MCH MCHC RDW Plt Count Lymph % (Auto) [place] % (Auto) Lymph # [place] # Seg Neutrophils % Seg Neuts % (Manual) Lymphocytes % (Manual) Monocytes % (Manual) Nucleated RBC % Seg Neutrophils # Seg Neutrophils # Man Lymphocytes # (Manual) Monocytes # (Manual) PT INR APTT D-Dimer Heparin Anti-Xa Level 0.91 H POC ABG pH POC ABG pCO2 POC ABG pO2 Sodium Potassium Chloride Carbon Dioxide BUN Creatinine Glucose POC Glucose 214 H 210 H Lactic Acid Calcium Phosphorus Total Bilirubin C-Reactive Protein NT-Pro-B Natriuret Pep Total Protein Albumin Urine WBC (Auto) Urine Creatinine 08/02/18 08/02/18 08/02/18 15:46 17:56 21:50 WBC RBC Hgb Hct MCV MCH MCHC RDW Plt Count Lymph % (Auto) [place] % (Auto) Lymph # [place] # Seg Neutrophils % Seg Neuts % (Manual) Lymphocytes % (Manual) Monocytes % (Manual) Nucleated RBC % Seg Neutrophils # Seg Neutrophils # Man Lymphocytes # (Manual) Monocytes # (Manual) PT INR APTT D-Dimer Heparin Anti-Xa Level 0.99 H POC ABG pH POC ABG pCO2 POC ABG pO2 Sodium Potassium Chloride Carbon Dioxide BUN Creatinine Glucose POC Glucose 252 H 222 H Lactic Acid Calcium Phosphorus Total Bilirubin C-Reactive Protein NT-Pro-B Natriuret Pep Total Protein Albumin Urine WBC (Auto) Urine Creatinine 08/03/18 08/03/18 08/03/18 02:18 05:21 05:25 WBC RBC Hgb Hct MCV MCH MCHC RDW Plt Count Lymph % (Auto) [place] % (Auto) Lymph # [place] # Seg Neutrophils % Seg Neuts % (Manual) Lymphocytes % (Manual) Monocytes % (Manual) Nucleated RBC % Seg Neutrophils # Seg Neutrophils # Man Lymphocytes # (Manual) Monocytes # (Manual) PT INR APTT D-Dimer Heparin Anti-Xa Level POC ABG pH POC ABG pCO2 POC ABG pO2 Sodium 151 H Potassium Chloride 107.3 H Carbon Dioxide 37 H BUN 42 H Creatinine 0.6 L Glucose 263 H POC Glucose 241 H 241 H Lactic Acid Calcium Phosphorus Total Bilirubin C-Reactive Protein NT-Pro-B Natriuret Pep Total Protein Albumin Urine WBC (Auto) Urine Creatinine 08/03/18 08/03/18 08/03/18 09:11 12:20 14:33 WBC RBC Hgb Hct MCV MCH MCHC RDW Plt Count Lymph % (Auto) [place] % (Auto) Lymph # [place] # Seg Neutrophils % Seg Neuts % (Manual) Lymphocytes % (Manual) Monocytes % (Manual) Nucleated RBC % Seg Neutrophils # Seg Neutrophils # Man Lymphocytes # (Manual) Monocytes # (Manual) PT INR APTT D-Dimer Heparin Anti-Xa Level POC ABG pH POC ABG pCO2 POC ABG pO2 Sodium Potassium Chloride Carbon Dioxide BUN Creatinine Glucose POC Glucose 272 H 234 H 247 H Lactic Acid Calcium Phosphorus Total Bilirubin C-Reactive Protein NT-Pro-B Natriuret Pep Total Protein Albumin Urine WBC (Auto) Urine Creatinine 08/03/18 08/03/18 08/04/18 16:48 21:21 01:56 WBC RBC Hgb Hct MCV MCH MCHC RDW Plt Count Lymph % (Auto) [place] % (Auto) Lymph # [place] # Seg Neutrophils % Seg Neuts % (Manual) Lymphocytes % (Manual) Monocytes % (Manual) Nucleated RBC % Seg Neutrophils # Seg Neutrophils # Man Lymphocytes # (Manual) Monocytes # (Manual) PT INR APTT D-Dimer Heparin Anti-Xa Level POC ABG pH POC ABG pCO2 POC ABG pO2 Sodium Potassium Chloride Carbon Dioxide BUN Creatinine Glucose POC Glucose 180 H 189 H Lactic Acid Calcium Phosphorus Total Bilirubin C-Reactive Protein 2.30 H NT-Pro-B Natriuret Pep Total Protein Albumin Urine WBC (Auto) Urine Creatinine 08/04/18 08/04/18 08/04/18 01:58 05:05 05:05 WBC 25.5 H RBC 3.31 L Hgb 10.8 L Hct 34.1 L MCV 103 H MCH 33 H MCHC RDW 16.0 H Plt Count Lymph % (Auto) [place] % (Auto) Lymph # [place] # Seg Neutrophils % Seg Neuts % (Manual) Lymphocytes % (Manual) 8.0 L Monocytes % (Manual) Nucleated RBC % 2.0 H Seg Neutrophils # Seg Neutrophils # Man 16.3 H Lymphocytes # (Manual) Monocytes # (Manual) 1.0 H PT INR APTT D-Dimer Heparin Anti-Xa Level 0.79 H POC ABG pH POC ABG pCO2 POC ABG pO2 Sodium 148 H Potassium Chloride Carbon Dioxide 36 H BUN 35 H Creatinine 0.6 L Glucose 160 H POC Glucose Lactic Acid Calcium Phosphorus Total Bilirubin C-Reactive Protein NT-Pro-B Natriuret Pep Total Protein Albumin Urine WBC (Auto) Urine Creatinine 08/04/18 08/04/18 08/04/18 05:24 05:33 08:46 WBC RBC Hgb Hct MCV MCH MCHC RDW Plt Count Lymph % (Auto) [place] % (Auto) Lymph # [place] # Seg Neutrophils % Seg Neuts % (Manual) Lymphocytes % (Manual) Monocytes % (Manual) Nucleated RBC % Seg Neutrophils # Seg Neutrophils # Man Lymphocytes # (Manual) Monocytes # (Manual) PT INR APTT D-Dimer Heparin Anti-Xa Level 0.76 H POC ABG pH POC ABG pCO2 65.7 H POC ABG pO2 63 L Sodium Potassium Chloride Carbon Dioxide BUN Creatinine Glucose POC Glucose 159 H Lactic Acid Calcium Phosphorus Total Bilirubin C-Reactive Protein NT-Pro-B Natriuret Pep Total Protein Albumin Urine WBC (Auto) Urine Creatinine 08/04/18 08/04/18 08/04/18 09:12 15:38 18:20 WBC RBC Hgb Hct MCV MCH MCHC RDW Plt Count Lymph % (Auto) [place] % (Auto) Lymph # [place] # Seg Neutrophils % Seg Neuts % (Manual) Lymphocytes % (Manual) Monocytes % (Manual) Nucleated RBC % Seg Neutrophils # Seg Neutrophils # Man Lymphocytes # (Manual) Monocytes # (Manual) PT INR APTT D-Dimer Heparin Anti-Xa Level POC ABG pH POC ABG pCO2 POC ABG pO2 Sodium Potassium Chloride Carbon Dioxide BUN Creatinine Glucose POC Glucose 140 H 267 H 252 H Lactic Acid Calcium Phosphorus Total Bilirubin C-Reactive Protein NT-Pro-B Natriuret Pep Total Protein Albumin Urine WBC (Auto) Urine Creatinine 08/04/18 08/05/18 08/05/18 21:17 02:51 04:36 WBC RBC Hgb Hct MCV MCH MCHC RDW Plt Count Lymph % (Auto) [place] % (Auto) Lymph # [place] # Seg Neutrophils % Seg Neuts % (Manual) Lymphocytes % (Manual) Monocytes % (Manual) Nucleated RBC % Seg Neutrophils # Seg Neutrophils # Man Lymphocytes # (Manual) Monocytes # (Manual) PT INR APTT D-Dimer Heparin Anti-Xa Level POC ABG pH POC ABG pCO2 POC ABG pO2 Sodium Potassium Chloride Carbon Dioxide BUN Creatinine Glucose POC Glucose 181 H 240 H 255 H Lactic Acid Calcium Phosphorus Total Bilirubin C-Reactive Protein NT-Pro-B Natriuret Pep Total Protein Albumin Urine WBC (Auto) Urine Creatinine 08/05/18 08/05/18 08/05/18 04:55 10:21 12:39 WBC 21.8 H RBC 3.18 L Hgb 10.3 L Hct 32.6 L MCV 103 H MCH 33 H MCHC RDW 16.3 H Plt Count Lymph % (Auto) [place] % (Auto) Lymph # [place] # Seg Neutrophils % Seg Neuts % (Manual) 88.0 H Lymphocytes % (Manual) 4.0 L Monocytes % (Manual) Nucleated RBC % Seg Neutrophils # Seg Neutrophils # Man 19.2 H Lymphocytes # (Manual) 0.9 L Monocytes # (Manual) PT INR APTT D-Dimer Heparin Anti-Xa Level POC ABG pH 7.506 H POC ABG pCO2 56.0 H POC ABG pO2 63 L Sodium Potassium Chloride Carbon Dioxide BUN Creatinine Glucose POC Glucose 227 H Lactic Acid Calcium Phosphorus Total Bilirubin C-Reactive Protein NT-Pro-B Natriuret Pep Total Protein Albumin Urine WBC (Auto) Urine Creatinine 08/05/18 08/05/18 08/05/18 12:39 14:10 17:30 WBC RBC Hgb Hct MCV MCH MCHC RDW Plt Count Lymph % (Auto) [place] % (Auto) Lymph # [place] # Seg Neutrophils % Seg Neuts % (Manual) Lymphocytes % (Manual) Monocytes % (Manual) Nucleated RBC % Seg Neutrophils # Seg Neutrophils # Man Lymphocytes # (Manual) Monocytes # (Manual) PT INR APTT D-Dimer Heparin Anti-Xa Level < 0.10 L POC ABG pH POC ABG pCO2 POC ABG pO2 Sodium Potassium Chloride 96.8 L Carbon Dioxide 38 H BUN 36 H Creatinine 0.6 L Glucose 218 H POC Glucose 221 H Lactic Acid Calcium Phosphorus Total Bilirubin C-Reactive Protein NT-Pro-B Natriuret Pep Total Protein Albumin Urine WBC (Auto) Urine Creatinine 08/05/18 08/05/18 08/06/18 18:32 23:32 02:26 WBC RBC Hgb Hct MCV MCH MCHC RDW Plt Count Lymph % (Auto) [place] % (Auto) Lymph # [place] # Seg Neutrophils % Seg Neuts % (Manual) Lymphocytes % (Manual) Monocytes % (Manual) Nucleated RBC % Seg Neutrophils # Seg Neutrophils # Man Lymphocytes # (Manual) Monocytes # (Manual) PT INR APTT D-Dimer Heparin Anti-Xa Level POC ABG pH POC ABG pCO2 POC ABG pO2 Sodium Potassium Chloride Carbon Dioxide BUN Creatinine Glucose POC Glucose 253 H 215 H 227 H Lactic Acid Calcium Phosphorus Total Bilirubin C-Reactive Protein NT-Pro-B Natriuret Pep Total Protein Albumin Urine WBC (Auto) Urine Creatinine 08/06/18 08/06/18 08/06/18 05:17 05:17 05:32 WBC 18.9 H RBC 3.06 L Hgb 10.2 L Hct 31.3 L MCV 102 H MCH 33 H MCHC RDW 16.1 H Plt Count Lymph % (Auto) [place] % (Auto) Lymph # [place] # Seg Neutrophils % Seg Neuts % (Manual) Lymphocytes % (Manual) Monocytes % (Manual) Nucleated RBC % Seg Neutrophils # Seg Neutrophils # Man Lymphocytes # (Manual) Monocytes # (Manual) PT INR APTT D-Dimer Heparin Anti-Xa Level POC ABG pH 7.468 H POC ABG pCO2 59.5 H POC ABG pO2 64 L Sodium Potassium Chloride Carbon Dioxide 37 H BUN 37 H Creatinine 0.5 L Glucose 226 H POC Glucose Lactic Acid Calcium Phosphorus Total Bilirubin C-Reactive Protein NT-Pro-B Natriuret Pep Total Protein Albumin Urine WBC (Auto) Urine Creatinine 08/06/18 08/06/18 08/06/18 10:11 15:03 17:48 WBC RBC Hgb Hct MCV MCH MCHC RDW Plt Count Lymph % (Auto) [place] % (Auto) Lymph # [place] # Seg Neutrophils % Seg Neuts % (Manual) Lymphocytes % (Manual) Monocytes % (Manual) Nucleated RBC % Seg Neutrophils # Seg Neutrophils # Man Lymphocytes # (Manual) Monocytes # (Manual) PT INR APTT D-Dimer Heparin Anti-Xa Level POC ABG pH POC ABG pCO2 POC ABG pO2 Sodium Potassium Chloride Carbon Dioxide BUN Creatinine Glucose POC Glucose 207 H 229 H 188 H Lactic Acid Calcium Phosphorus Total Bilirubin C-Reactive Protein NT-Pro-B Natriuret Pep Total Protein Albumin Urine WBC (Auto) Urine Creatinine 08/06/18 08/07/18 08/07/18 22:53 01:55 05:30 WBC RBC Hgb Hct MCV MCH MCHC RDW Plt Count Lymph % (Auto) [place] % (Auto) Lymph # [place] # Seg Neutrophils % Seg Neuts % (Manual) Lymphocytes % (Manual) Monocytes % (Manual) Nucleated RBC % Seg Neutrophils # Seg Neutrophils # Man Lymphocytes # (Manual) Monocytes # (Manual) PT INR APTT D-Dimer Heparin Anti-Xa Level POC ABG pH POC ABG pCO2 69.6 H POC ABG pO2 64 L Sodium Potassium Chloride Carbon Dioxide BUN Creatinine Glucose POC Glucose 146 H 143 H Lactic Acid Calcium Phosphorus Total Bilirubin C-Reactive Protein NT-Pro-B Natriuret Pep Total Protein Albumin Urine WBC (Auto) Urine Creatinine 08/07/18 08/07/18 08/07/18 09:59 14:16 15:08 WBC RBC Hgb 10.3 L Hct 32.2 L MCV MCH MCHC RDW Plt Count Lymph % (Auto) [place] % (Auto) Lymph # [place] # Seg Neutrophils % Seg Neuts % (Manual) Lymphocytes % (Manual) Monocytes % (Manual) Nucleated RBC % Seg Neutrophils # Seg Neutrophils # Man Lymphocytes # (Manual) Monocytes # (Manual) PT INR APTT D-Dimer Heparin Anti-Xa Level POC ABG pH POC ABG pCO2 POC ABG pO2 Sodium Potassium Chloride Carbon Dioxide BUN Creatinine Glucose POC Glucose 188 H 223 H Lactic Acid Calcium Phosphorus Total Bilirubin C-Reactive Protein NT-Pro-B Natriuret Pep Total Protein Albumin Urine WBC (Auto) Urine Creatinine 08/07/18 08/07/18 08/07/18 15:08 17:39 22:04 WBC RBC Hgb Hct MCV MCH MCHC RDW Plt Count Lymph % (Auto) [place] % (Auto) Lymph # [place] # Seg Neutrophils % Seg Neuts % (Manual) Lymphocytes % (Manual) Monocytes % (Manual) Nucleated RBC % Seg Neutrophils # Seg Neutrophils # Man Lymphocytes # (Manual) Monocytes # (Manual) PT INR APTT 23.2 L D-Dimer Heparin Anti-Xa Level POC ABG pH POC ABG pCO2 POC ABG pO2 Sodium Potassium Chloride Carbon Dioxide BUN Creatinine Glucose POC Glucose 208 H 163 H Lactic Acid Calcium Phosphorus Total Bilirubin C-Reactive Protein NT-Pro-B Natriuret Pep Total Protein Albumin Urine WBC (Auto) Urine Creatinine 08/07/18 08/08/18 08/08/18 22:30 01:57 02:09 WBC 14.6 H RBC 2.88 L Hgb 9.5 L Hct 29.9 L MCV 104 H MCH 33 H MCHC RDW 16.8 H Plt Count Lymph % (Auto) [place] % (Auto) Lymph # [place] # Seg Neutrophils % Seg Neuts % (Manual) 73.0 H Lymphocytes % (Manual) 9.0 L Monocytes % (Manual) 10.0 H Nucleated RBC % Seg Neutrophils # Seg Neutrophils # Man 10.7 H Lymphocytes # (Manual) Monocytes # (Manual) 1.5 H PT INR APTT D-Dimer Heparin Anti-Xa Level 0.25 L POC ABG pH POC ABG pCO2 POC ABG pO2 Sodium Potassium Chloride Carbon Dioxide BUN Creatinine Glucose POC Glucose 120 H Lactic Acid Calcium Phosphorus Total Bilirubin C-Reactive Protein NT-Pro-B Natriuret Pep Total Protein Albumin Urine WBC (Auto) Urine Creatinine 08/08/18 08/08/18 08/08/18 02:09 04:58 05:19 WBC RBC Hgb Hct MCV MCH MCHC RDW Plt Count Lymph % (Auto) [place] % (Auto) Lymph # [place] # Seg Neutrophils % Seg Neuts % (Manual) Lymphocytes % (Manual) Monocytes % (Manual) Nucleated RBC % Seg Neutrophils # Seg Neutrophils # Man Lymphocytes # (Manual) Monocytes # (Manual) PT INR APTT D-Dimer Heparin Anti-Xa Level POC ABG pH 7.461 H POC ABG pCO2 57.3 H POC ABG pO2 62 L Sodium Potassium Chloride Carbon Dioxide 39 H BUN 29 H Creatinine 0.5 L Glucose 124 H POC Glucose 139 H Lactic Acid Calcium Phosphorus Total Bilirubin C-Reactive Protein NT-Pro-B Natriuret Pep Total Protein Albumin Urine WBC (Auto) Urine Creatinine 08/08/18 08/08/18 08/08/18 10:22 14:52 16:12 WBC RBC Hgb Hct MCV MCH MCHC RDW Plt Count Lymph % (Auto) [place] % (Auto) Lymph # [place] # Seg Neutrophils % Seg Neuts % (Manual) Lymphocytes % (Manual) Monocytes % (Manual) Nucleated RBC % Seg Neutrophils # Seg Neutrophils # Man Lymphocytes # (Manual) Monocytes # (Manual) PT INR APTT D-Dimer Heparin Anti-Xa Level POC ABG pH POC ABG pCO2 POC ABG pO2 Sodium Potassium Chloride Carbon Dioxide BUN Creatinine Glucose POC Glucose 169 H 149 H 136 H Lactic Acid Calcium Phosphorus Total Bilirubin C-Reactive Protein NT-Pro-B Natriuret Pep Total Protein Albumin Urine WBC (Auto) Urine Creatinine 08/09/18 08/09/18 08/09/18 02:26 03:52 03:52 WBC 15.9 H RBC 2.87 L Hgb 9.6 L Hct 30.7 L MCV 107 H MCH 34 H MCHC 31 L RDW 17.8 H Plt Count Lymph % (Auto) 3.9 L [place] % (Auto) 8.1 H Lymph # 0.6 L [place] # 1.3 H Seg Neutrophils % 87.1 H Seg Neuts % (Manual) Lymphocytes % (Manual) Monocytes % (Manual) Nucleated RBC % Seg Neutrophils # 13.9 H Seg Neutrophils # Man Lymphocytes # (Manual) Monocytes # (Manual) PT INR APTT D-Dimer Heparin Anti-Xa Level 0.25 L POC ABG pH POC ABG pCO2 POC ABG pO2 Sodium Potassium Chloride Carbon Dioxide BUN Creatinine Glucose POC Glucose 126 H Lactic Acid Calcium Phosphorus Total Bilirubin C-Reactive Protein NT-Pro-B Natriuret Pep Total Protein Albumin Urine WBC (Auto) Urine Creatinine 08/09/18 08/09/18 08/09/18 03:52 05:34 06:48 WBC RBC Hgb Hct MCV MCH MCHC RDW Plt Count Lymph % (Auto) [place] % (Auto) Lymph # [place] # Seg Neutrophils % Seg Neuts % (Manual) Lymphocytes % (Manual) Monocytes % (Manual) Nucleated RBC % Seg Neutrophils # Seg Neutrophils # Man Lymphocytes # (Manual) Monocytes # (Manual) PT INR APTT D-Dimer Heparin Anti-Xa Level POC ABG pH POC ABG pCO2 57.5 H POC ABG pO2 58 L Sodium Potassium Chloride Carbon Dioxide 39 H BUN 26 H Creatinine 0.5 L Glucose 128 H POC Glucose 171 H Lactic Acid Calcium Phosphorus Total Bilirubin C-Reactive Protein NT-Pro-B Natriuret Pep Total Protein Albumin Urine WBC (Auto) Urine Creatinine 08/09/18 08/09/18 08/09/18 09:28 09:36 13:44 WBC RBC Hgb Hct MCV MCH MCHC RDW Plt Count Lymph % (Auto) [place] % (Auto) Lymph # [place] # Seg Neutrophils % Seg Neuts % (Manual) Lymphocytes % (Manual) Monocytes % (Manual) Nucleated RBC % Seg Neutrophils # Seg Neutrophils # Man Lymphocytes # (Manual) Monocytes # (Manual) PT INR APTT D-Dimer Heparin Anti-Xa Level 0.26 L POC ABG pH POC ABG pCO2 POC ABG pO2 Sodium Potassium Chloride Carbon Dioxide BUN Creatinine Glucose POC Glucose 183 H 184 H Lactic Acid Calcium Phosphorus Total Bilirubin C-Reactive Protein NT-Pro-B Natriuret Pep Total Protein Albumin Urine WBC (Auto) Urine Creatinine 08/09/18 08/10/18 08/10/18 17:55 04:49 05:20 WBC RBC Hgb Hct MCV MCH MCHC RDW Plt Count Lymph % (Auto) [place] % (Auto) Lymph # [place] # Seg Neutrophils % Seg Neuts % (Manual) Lymphocytes % (Manual) Monocytes % (Manual) Nucleated RBC % Seg Neutrophils # Seg Neutrophils # Man Lymphocytes # (Manual) Monocytes # (Manual) PT INR APTT D-Dimer Heparin Anti-Xa Level POC ABG pH POC ABG pCO2 59.9 H POC ABG pO2 59 L Sodium Potassium Chloride Carbon Dioxide BUN Creatinine Glucose POC Glucose 148 H 59 L Lactic Acid Calcium Phosphorus Total Bilirubin C-Reactive Protein NT-Pro-B Natriuret Pep Total Protein Albumin Urine WBC (Auto) Urine Creatinine 08/10/18 08/10/18 08/10/18 05:53 17:12 21:17 WBC RBC Hgb Hct MCV MCH MCHC RDW Plt Count Lymph % (Auto) [place] % (Auto) Lymph # [place] # Seg Neutrophils % Seg Neuts % (Manual) Lymphocytes % (Manual) Monocytes % (Manual) Nucleated RBC % Seg Neutrophils # Seg Neutrophils # Man Lymphocytes # (Manual) Monocytes # (Manual) PT INR APTT D-Dimer Heparin Anti-Xa Level POC ABG pH POC ABG pCO2 POC ABG pO2 Sodium Potassium Chloride Carbon Dioxide BUN Creatinine Glucose POC Glucose 128 H 110 H 109 H Lactic Acid Calcium Phosphorus Total Bilirubin C-Reactive Protein NT-Pro-B Natriuret Pep Total Protein Albumin Urine WBC (Auto) Urine Creatinine 08/11/18 08/11/18 08/11/18 00:54 02:28 04:17 WBC RBC Hgb 7.8 L Hct 24.1 L D MCV MCH MCHC RDW Plt Count Lymph % (Auto) [place] % (Auto) Lymph # [place] # Seg Neutrophils % Seg Neuts % (Manual) Lymphocytes % (Manual) Monocytes % (Manual) Nucleated RBC % Seg Neutrophils # Seg Neutrophils # Man Lymphocytes # (Manual) Monocytes # (Manual) PT INR APTT D-Dimer Heparin Anti-Xa Level 0.19 L POC ABG pH POC ABG pCO2 POC ABG pO2 Sodium Potassium Chloride Carbon Dioxide BUN Creatinine Glucose POC Glucose 124 H Lactic Acid Calcium Phosphorus Total Bilirubin C-Reactive Protein NT-Pro-B Natriuret Pep Total Protein Albumin Urine WBC (Auto) Urine Creatinine 08/11/18 08/11/18 08/11/18 05:10 07:42 10:27 WBC RBC Hgb Hct MCV MCH MCHC RDW Plt Count Lymph % (Auto) [place] % (Auto) Lymph # [place] # Seg Neutrophils % Seg Neuts % (Manual) Lymphocytes % (Manual) Monocytes % (Manual) Nucleated RBC % Seg Neutrophils # Seg Neutrophils # Man Lymphocytes # (Manual) Monocytes # (Manual) PT INR APTT D-Dimer Heparin Anti-Xa Level 0.20 L POC ABG pH POC ABG pCO2 POC ABG pO2 Sodium Potassium Chloride Carbon Dioxide BUN Creatinine Glucose POC Glucose 150 H 156 H Lactic Acid Calcium Phosphorus Total Bilirubin C-Reactive Protein NT-Pro-B Natriuret Pep Total Protein Albumin Urine WBC (Auto) Urine Creatinine 08/11/18 08/11/18 08/11/18 13:54 15:06 18:13 WBC RBC Hgb Hct MCV MCH MCHC RDW Plt Count Lymph % (Auto) [place] % (Auto) Lymph # [place] # Seg Neutrophils % Seg Neuts % (Manual) Lymphocytes % (Manual) Monocytes % (Manual) Nucleated RBC % Seg Neutrophils # Seg Neutrophils # Man Lymphocytes # (Manual) Monocytes # (Manual) PT INR APTT D-Dimer Heparin Anti-Xa Level POC ABG pH 7.471 H POC ABG pCO2 45.5 H POC ABG pO2 79 L Sodium Potassium Chloride Carbon Dioxide BUN Creatinine Glucose POC Glucose 177 H 143 H Lactic Acid Calcium Phosphorus Total Bilirubin C-Reactive Protein NT-Pro-B Natriuret Pep Total Protein Albumin Urine WBC (Auto) Urine Creatinine 08/11/18 08/11/18 08/11/18 18:33 21:22 Unknown WBC RBC Hgb Hct MCV MCH MCHC RDW Plt Count Lymph % (Auto) [place] % (Auto) Lymph # [place] # Seg Neutrophils % Seg Neuts % (Manual) Lymphocytes % (Manual) Monocytes % (Manual) Nucleated RBC % Seg Neutrophils # Seg Neutrophils # Man Lymphocytes # (Manual) Monocytes # (Manual) PT INR APTT D-Dimer Heparin Anti-Xa Level 0.29 L POC ABG pH POC ABG pCO2 POC ABG pO2 Sodium 136 L Potassium Chloride 96.5 L Carbon Dioxide 32 H D BUN Creatinine 0.5 L Glucose 186 H POC Glucose 151 H Lactic Acid Calcium Phosphorus Total Bilirubin C-Reactive Protein NT-Pro-B Natriuret Pep Total Protein Albumin Urine WBC (Auto) Urine Creatinine 08/11/18 08/12/18 08/12/18 Unknown 02:09 05:29 WBC 12.1 H RBC 2.50 L Hgb 8.2 L Hct 25.7 L MCV 103 H MCH 33 H MCHC RDW 17.0 H Plt Count Lymph % (Auto) 5.1 L [place] % (Auto) 9.5 H Lymph # 0.6 L [place] # 1.2 H Seg Neutrophils % 84.8 H Seg Neuts % (Manual) Lymphocytes % (Manual) Monocytes % (Manual) Nucleated RBC % Seg Neutrophils # 10.3 H Seg Neutrophils # Man Lymphocytes # (Manual) Monocytes # (Manual) PT INR APTT D-Dimer Heparin Anti-Xa Level POC ABG pH POC ABG pCO2 POC ABG pO2 Sodium Potassium Chloride Carbon Dioxide BUN Creatinine Glucose POC Glucose 159 H 136 H Lactic Acid Calcium Phosphorus Total Bilirubin C-Reactive Protein NT-Pro-B Natriuret Pep Total Protein Albumin Urine WBC (Auto) Urine Creatinine 08/12/18 08/12/18 08/12/18 07:33 09:59 13:59 WBC RBC Hgb Hct MCV MCH MCHC RDW Plt Count Lymph % (Auto) [place] % (Auto) Lymph # [place] # Seg Neutrophils % Seg Neuts % (Manual) Lymphocytes % (Manual) Monocytes % (Manual) Nucleated RBC % Seg Neutrophils # Seg Neutrophils # Man Lymphocytes # (Manual) Monocytes # (Manual) PT INR APTT D-Dimer Heparin Anti-Xa Level POC ABG pH POC ABG pCO2 POC ABG pO2 Sodium Potassium Chloride Carbon Dioxide BUN Creatinine Glucose POC Glucose 138 H 157 H 167 H Lactic Acid Calcium Phosphorus Total Bilirubin C-Reactive Protein NT-Pro-B Natriuret Pep Total Protein Albumin Urine WBC (Auto) Urine Creatinine 08/12/18 08/12/18 08/12/18 14:31 14:56 17:39 WBC RBC Hgb Hct MCV MCH MCHC RDW Plt Count Lymph % (Auto) [place] % (Auto) Lymph # [place] # Seg Neutrophils % Seg Neuts % (Manual) Lymphocytes % (Manual) Monocytes % (Manual) Nucleated RBC % Seg Neutrophils # Seg Neutrophils # Man Lymphocytes # (Manual) Monocytes # (Manual) PT INR APTT D-Dimer Heparin Anti-Xa Level 1.18 H POC ABG pH 7.466 H POC ABG pCO2 POC ABG pO2 58 L Sodium Potassium Chloride Carbon Dioxide BUN Creatinine Glucose POC Glucose 168 H Lactic Acid Calcium Phosphorus Total Bilirubin C-Reactive Protein NT-Pro-B Natriuret Pep Total Protein Albumin Urine WBC (Auto) Urine Creatinine 08/12/18 08/13/18 08/13/18 21:38 02:17 05:20 WBC RBC Hgb 8.0 L Hct 24.5 L MCV MCH MCHC RDW Plt Count Lymph % (Auto) [place] % (Auto) Lymph # [place] # Seg Neutrophils % Seg Neuts % (Manual) Lymphocytes % (Manual) Monocytes % (Manual) Nucleated RBC % Seg Neutrophils # Seg Neutrophils # Man Lymphocytes # (Manual) Monocytes # (Manual) PT INR APTT D-Dimer Heparin Anti-Xa Level POC ABG pH POC ABG pCO2 POC ABG pO2 Sodium Potassium Chloride Carbon Dioxide BUN Creatinine Glucose POC Glucose 168 H 157 H Lactic Acid Calcium Phosphorus Total Bilirubin C-Reactive Protein NT-Pro-B Natriuret Pep Total Protein Albumin Urine WBC (Auto) Urine Creatinine 08/13/18 08/13/18 08/13/18 09:28 10:07 14:09 WBC RBC Hgb Hct MCV MCH MCHC RDW Plt Count Lymph % (Auto) [place] % (Auto) Lymph # [place] # Seg Neutrophils % Seg Neuts % (Manual) Lymphocytes % (Manual) Monocytes % (Manual) Nucleated RBC % Seg Neutrophils # Seg Neutrophils # Man Lymphocytes # (Manual) Monocytes # (Manual) PT INR APTT D-Dimer Heparin Anti-Xa Level POC ABG pH 7.453 H POC ABG pCO2 47.5 H POC ABG pO2 Sodium Potassium Chloride Carbon Dioxide BUN Creatinine Glucose POC Glucose 177 H 178 H Lactic Acid Calcium Phosphorus Total Bilirubin C-Reactive Protein NT-Pro-B Natriuret Pep Total Protein Albumin Urine WBC (Auto) Urine Creatinine 08/13/18 08/13/18 08/14/18 17:33 21:28 01:58 WBC RBC Hgb Hct MCV MCH MCHC RDW Plt Count Lymph % (Auto) [place] % (Auto) Lymph # [place] # Seg Neutrophils % Seg Neuts % (Manual) Lymphocytes % (Manual) Monocytes % (Manual) Nucleated RBC % Seg Neutrophils # Seg Neutrophils # Man Lymphocytes # (Manual) Monocytes # (Manual) PT INR APTT D-Dimer Heparin Anti-Xa Level POC ABG pH POC ABG pCO2 POC ABG pO2 Sodium Potassium Chloride Carbon Dioxide BUN Creatinine Glucose POC Glucose 130 H 145 H 161 H Lactic Acid Calcium Phosphorus Total Bilirubin C-Reactive Protein NT-Pro-B Natriuret Pep Total Protein Albumin Urine WBC (Auto) Urine Creatinine 08/14/18 08/14/18 08/14/18 05:22 06:10 09:59 WBC RBC Hgb Hct MCV MCH MCHC RDW Plt Count Lymph % (Auto) [place] % (Auto) Lymph # [place] # Seg Neutrophils % Seg Neuts % (Manual) Lymphocytes % (Manual) Monocytes % (Manual) Nucleated RBC % Seg Neutrophils # Seg Neutrophils # Man Lymphocytes # (Manual) Monocytes # (Manual) PT INR APTT D-Dimer Heparin Anti-Xa Level POC ABG pH POC ABG pCO2 POC ABG pO2 Sodium Potassium Chloride Carbon Dioxide BUN Creatinine 0.5 L Glucose 125 H POC Glucose 117 H 107 H Lactic Acid Calcium Phosphorus Total Bilirubin C-Reactive Protein NT-Pro-B Natriuret Pep Total Protein Albumin Urine WBC (Auto) Urine Creatinine 12/08/14/18 08/14/18 14:04 17:49 21:27 WBC RBC Hgb Hct MCV MCH MCHC RDW Plt Count Lymph % (Auto) [place] % (Auto) Lymph # [place] # Seg Neutrophils % Seg Neuts % (Manual) Lymphocytes % (Manual) Monocytes % (Manual) Nucleated RBC % Seg Neutrophils # Seg Neutrophils # Man Lymphocytes # (Manual) Monocytes # (Manual) PT INR APTT D-Dimer Heparin Anti-Xa Level POC ABG pH POC ABG pCO2 POC ABG pO2 Sodium Potassium Chloride Carbon Dioxide BUN Creatinine Glucose POC Glucose 137 H 150 H 149 H Lactic Acid Calcium Phosphorus Total Bilirubin C-Reactive Protein NT-Pro-B Natriuret Pep Total Protein Albumin Urine WBC (Auto) Urine Creatinine 08/14/18 08/15/18 08/15/18 21:55 01:50 03:12 WBC 13.3 H RBC 2.79 L Hgb 9.3 L 8.4 L Hct 28.6 L 25.7 L MCV 102 H MCH 33 H MCHC RDW 16.6 H Plt Count Lymph % (Auto) [place] % (Auto) Lymph # [place] # Seg Neutrophils % Seg Neuts % (Manual) Lymphocytes % (Manual) Monocytes % (Manual) Nucleated RBC % Seg Neutrophils # Seg Neutrophils # Man Lymphocytes # (Manual) Monocytes # (Manual) PT INR APTT D-Dimer Heparin Anti-Xa Level POC ABG pH POC ABG pCO2 POC ABG pO2 Sodium Potassium Chloride Carbon Dioxide BUN Creatinine Glucose POC Glucose 186 H Lactic Acid Calcium Phosphorus Total Bilirubin C-Reactive Protein NT-Pro-B Natriuret Pep Total Protein Albumin Urine WBC (Auto) Urine Creatinine 08/15/18 08/15/18 08/15/18 09:55 11:45 13:47 WBC RBC 2.38 L Hgb 8.0 L Hct 24.5 L MCV 103 H MCH 34 H MCHC RDW 16.8 H Plt Count Lymph % (Auto) 4.9 L [place] % (Auto) Lymph # 0.5 L [place] # Seg Neutrophils % 88.1 H Seg Neuts % (Manual) Lymphocytes % (Manual) Monocytes % (Manual) Nucleated RBC % Seg Neutrophils # 9.6 H Seg Neutrophils # Man Lymphocytes # (Manual) Monocytes # (Manual) PT INR APTT D-Dimer Heparin Anti-Xa Level POC ABG pH POC ABG pCO2 POC ABG pO2 Sodium Potassium Chloride Carbon Dioxide BUN Creatinine Glucose POC Glucose 133 H 142 H Lactic Acid Calcium Phosphorus Total Bilirubin C-Reactive Protein NT-Pro-B Natriuret Pep Total Protein Albumin Urine WBC (Auto) Urine Creatinine 08/15/18 08/15/18 08/16/18 17:54 21:58 02:20 WBC RBC Hgb Hct MCV MCH MCHC RDW Plt Count Lymph % (Auto) [place] % (Auto) Lymph # [place] # Seg Neutrophils % Seg Neuts % (Manual) Lymphocytes % (Manual) Monocytes % (Manual) Nucleated RBC % Seg Neutrophils # Seg Neutrophils # Man Lymphocytes # (Manual) Monocytes # (Manual) PT INR APTT D-Dimer Heparin Anti-Xa Level POC ABG pH POC ABG pCO2 POC ABG pO2 Sodium Potassium Chloride Carbon Dioxide BUN Creatinine Glucose POC Glucose 131 H 157 H 108 H Lactic Acid Calcium Phosphorus Total Bilirubin C-Reactive Protein NT-Pro-B Natriuret Pep Total Protein Albumin Urine WBC (Auto) Urine Creatinine 08/16/18 08/16/18 08/16/18 05:16 10:20 10:23 WBC RBC Hgb Hct MCV MCH MCHC RDW Plt Count Lymph % (Auto) [place] % (Auto) Lymph # [place] # Seg Neutrophils % Seg Neuts % (Manual) Lymphocytes % (Manual) Monocytes % (Manual) Nucleated RBC % Seg Neutrophils # Seg Neutrophils # Man Lymphocytes # (Manual) Monocytes # (Manual) PT INR APTT D-Dimer Heparin Anti-Xa Level POC ABG pH POC ABG pCO2 POC ABG pO2 63 L Sodium Potassium Chloride Carbon Dioxide BUN Creatinine Glucose POC Glucose 115 H 146 H Lactic Acid Calcium Phosphorus Total Bilirubin C-Reactive Protein NT-Pro-B Natriuret Pep Total Protein Albumin Urine WBC (Auto) Urine Creatinine 08/16/18 08/16/18 08/16/18 11:06 14:05 18:04 WBC RBC 2.82 L Hgb 9.2 L Hct 28.8 L MCV 102 H MCH 33 H MCHC RDW 16.4 H Plt Count Lymph % (Auto) 3.8 L [place] % (Auto) Lymph # 0.4 L [place] # Seg Neutrophils % 89.5 H Seg Neuts % (Manual) Lymphocytes % (Manual) Monocytes % (Manual) Nucleated RBC % Seg Neutrophils # 9.1 H Seg Neutrophils # Man Lymphocytes # (Manual) Monocytes # (Manual) PT INR APTT D-Dimer Heparin Anti-Xa Level POC ABG pH POC ABG pCO2 POC ABG pO2 Sodium Potassium Chloride Carbon Dioxide BUN Creatinine Glucose POC Glucose 139 H 144 H Lactic Acid Calcium Phosphorus Total Bilirubin C-Reactive Protein NT-Pro-B Natriuret Pep Total Protein Albumin Urine WBC (Auto) Urine Creatinine 08/16/18 08/17/18 08/17/18 21:50 03:51 04:59 WBC RBC Hgb Hct MCV MCH MCHC RDW Plt Count Lymph % (Auto) [place] % (Auto) Lymph # [place] # Seg Neutrophils % Seg Neuts % (Manual) Lymphocytes % (Manual) Monocytes % (Manual) Nucleated RBC % Seg Neutrophils # Seg Neutrophils # Man Lymphocytes # (Manual) Monocytes # (Manual) PT INR APTT D-Dimer Heparin Anti-Xa Level POC ABG pH POC ABG pCO2 POC ABG pO2 Sodium Potassium Chloride Carbon Dioxide BUN Creatinine 0.5 L Glucose 134 H POC Glucose 147 H 135 H Lactic Acid Calcium Phosphorus Total Bilirubin C-Reactive Protein NT-Pro-B Natriuret Pep Total Protein Albumin Urine WBC (Auto) Urine Creatinine 08/17/18 08/17/18 08/17/18 12:07 18:04 21:38 WBC RBC Hgb Hct MCV MCH MCHC RDW Plt Count Lymph % (Auto) [place] % (Auto) Lymph # [place] # Seg Neutrophils % Seg Neuts % (Manual) Lymphocytes % (Manual) Monocytes % (Manual) Nucleated RBC % Seg Neutrophils # Seg Neutrophils # Man Lymphocytes # (Manual) Monocytes # (Manual) PT INR APTT D-Dimer Heparin Anti-Xa Level POC ABG pH POC ABG pCO2 55.6 H POC ABG pO2 65 L Sodium Potassium Chloride Carbon Dioxide BUN Creatinine Glucose POC Glucose 160 H 115 H Lactic Acid Calcium Phosphorus Total Bilirubin C-Reactive Protein NT-Pro-B Natriuret Pep Total Protein Albumin Urine WBC (Auto) Urine Creatinine 08/17/18 08/18/18 08/18/18 21:47 01:42 05:42 WBC RBC Hgb Hct MCV MCH MCHC RDW Plt Count Lymph % (Auto) [place] % (Auto) Lymph # [place] # Seg Neutrophils % Seg Neuts % (Manual) Lymphocytes % (Manual) Monocytes % (Manual) Nucleated RBC % Seg Neutrophils # Seg Neutrophils # Man Lymphocytes # (Manual) Monocytes # (Manual) PT INR APTT D-Dimer Heparin Anti-Xa Level POC ABG pH POC ABG pCO2 POC ABG pO2 Sodium Potassium Chloride Carbon Dioxide BUN Creatinine Glucose POC Glucose 110 H 124 H 127 H Lactic Acid Calcium Phosphorus Total Bilirubin C-Reactive Protein NT-Pro-B Natriuret Pep Total Protein Albumin Urine WBC (Auto) Urine Creatinine 08/18/18 08/18/18 08/18/18 09:51 14:37 21:37 WBC RBC Hgb Hct MCV MCH MCHC RDW Plt Count Lymph % (Auto) [place] % (Auto) Lymph # [place] # Seg Neutrophils % Seg Neuts % (Manual) Lymphocytes % (Manual) Monocytes % (Manual) Nucleated RBC % Seg Neutrophils # Seg Neutrophils # Man Lymphocytes # (Manual) Monocytes # (Manual) PT INR APTT D-Dimer Heparin Anti-Xa Level POC ABG pH POC ABG pCO2 POC ABG pO2 Sodium Potassium Chloride Carbon Dioxide BUN Creatinine Glucose POC Glucose 162 H 130 H 133 H Lactic Acid Calcium Phosphorus Total Bilirubin C-Reactive Protein NT-Pro-B Natriuret Pep Total Protein Albumin Urine WBC (Auto) Urine Creatinine 08/19/18 08/19/18 08/19/18 01:47 04:55 04:55 WBC RBC 2.86 L Hgb 9.4 L Hct 28.6 L MCV 100 H MCH 33 H MCHC RDW 16.6 H Plt Count Lymph % (Auto) [place] % (Auto) Lymph # [place] # Seg Neutrophils % Seg Neuts % (Manual) Lymphocytes % (Manual) Monocytes % (Manual) Nucleated RBC % Seg Neutrophils # Seg Neutrophils # Man Lymphocytes # (Manual) Monocytes # (Manual) PT INR APTT D-Dimer Heparin Anti-Xa Level POC ABG pH POC ABG pCO2 POC ABG pO2 Sodium Potassium Chloride 97.8 L Carbon Dioxide 32 H BUN Creatinine 0.4 L Glucose 116 H POC Glucose 136 H Lactic Acid Calcium Phosphorus Total Bilirubin C-Reactive Protein NT-Pro-B Natriuret Pep Total Protein Albumin Urine WBC (Auto) Urine Creatinine 08/19/18 08/19/18 08/19/18 05:16 05:41 11:49 WBC RBC Hgb Hct MCV MCH MCHC RDW Plt Count Lymph % (Auto) [place] % (Auto) Lymph # [place] # Seg Neutrophils % Seg Neuts % (Manual) Lymphocytes % (Manual) Monocytes % (Manual) Nucleated RBC % Seg Neutrophils # Seg Neutrophils # Man Lymphocytes # (Manual) Monocytes # (Manual) PT INR APTT D-Dimer Heparin Anti-Xa Level POC ABG pH POC ABG pCO2 57.5 H POC ABG pO2 65 L Sodium Potassium Chloride Carbon Dioxide BUN Creatinine Glucose POC Glucose 119 H 143 H Lactic Acid Calcium Phosphorus Total Bilirubin C-Reactive Protein NT-Pro-B Natriuret Pep Total Protein Albumin Urine WBC (Auto) Urine Creatinine 08/19/18 08/19/18 08/20/18 15:13 21:45 06:03 WBC RBC Hgb Hct MCV MCH MCHC RDW Plt Count Lymph % (Auto) [place] % (Auto) Lymph # [place] # Seg Neutrophils % Seg Neuts % (Manual) Lymphocytes % (Manual) Monocytes % (Manual) Nucleated RBC % Seg Neutrophils # Seg Neutrophils # Man Lymphocytes # (Manual) Monocytes # (Manual) PT INR APTT D-Dimer Heparin Anti-Xa Level POC ABG pH POC ABG pCO2 POC ABG pO2 Sodium Potassium Chloride Carbon Dioxide BUN Creatinine Glucose POC Glucose 155 H 127 H 160 H Lactic Acid Calcium Phosphorus Total Bilirubin C-Reactive Protein NT-Pro-B Natriuret Pep Total Protein Albumin Urine WBC (Auto) Urine Creatinine 08/20/18 08/20/18 08/21/18 12:00 22:10 05:32 WBC RBC Hgb Hct MCV MCH MCHC RDW Plt Count Lymph % (Auto) [place] % (Auto) Lymph # [place] # Seg Neutrophils % Seg Neuts % (Manual) Lymphocytes % (Manual) Monocytes % (Manual) Nucleated RBC % Seg Neutrophils # Seg Neutrophils # Man Lymphocytes # (Manual) Monocytes # (Manual) PT INR APTT D-Dimer Heparin Anti-Xa Level POC ABG pH POC ABG pCO2 POC ABG pO2 Sodium Potassium Chloride Carbon Dioxide BUN Creatinine Glucose POC Glucose 143 H 125 H 121 H Lactic Acid Calcium Phosphorus Total Bilirubin C-Reactive Protein NT-Pro-B Natriuret Pep Total Protein Albumin Urine WBC (Auto) Urine Creatinine 08/21/18 08/21/18 08/22/18 17:37 22:19 05:30 WBC RBC Hgb Hct MCV MCH MCHC RDW Plt Count Lymph % (Auto) [place] % (Auto) Lymph # [place] # Seg Neutrophils % Seg Neuts % (Manual) Lymphocytes % (Manual) Monocytes % (Manual) Nucleated RBC % Seg Neutrophils # Seg Neutrophils # Man Lymphocytes # (Manual) Monocytes # (Manual) PT INR APTT D-Dimer Heparin Anti-Xa Level POC ABG pH POC ABG pCO2 POC ABG pO2 Sodium Potassium Chloride Carbon Dioxide BUN Creatinine Glucose POC Glucose 126 H 129 H 147 H Lactic Acid Calcium Phosphorus Total Bilirubin C-Reactive Protein NT-Pro-B Natriuret Pep Total Protein Albumin Urine WBC (Auto) Urine Creatinine 08/22/18 08/22/18 08/23/18 16:22 21:31 04:37 WBC RBC Hgb Hct MCV MCH MCHC RDW Plt Count Lymph % (Auto) [place] % (Auto) Lymph # [place] # Seg Neutrophils % Seg Neuts % (Manual) Lymphocytes % (Manual) Monocytes % (Manual) Nucleated RBC % Seg Neutrophils # Seg Neutrophils # Man Lymphocytes # (Manual) Monocytes # (Manual) PT INR APTT D-Dimer Heparin Anti-Xa Level POC ABG pH POC ABG pCO2 POC ABG pO2 Sodium Potassium Chloride Carbon Dioxide BUN Creatinine 0.5 L Glucose 141 H POC Glucose 141 H 107 H Lactic Acid Calcium Phosphorus Total Bilirubin C-Reactive Protein NT-Pro-B Natriuret Pep Total Protein Albumin Urine WBC (Auto) Urine Creatinine 08/23/18 08/24/18 08/24/18 04:37 05:31 13:56 WBC RBC 2.94 L Hgb 9.7 L Hct 30.0 L MCV 102 H MCH 33 H MCHC RDW 17.0 H Plt Count 509 H Lymph % (Auto) [place] % (Auto) Lymph # [place] # Seg Neutrophils % Seg Neuts % (Manual) Lymphocytes % (Manual) Monocytes % (Manual) Nucleated RBC % Seg Neutrophils # Seg Neutrophils # Man Lymphocytes # (Manual) Monocytes # (Manual) PT INR APTT D-Dimer Heparin Anti-Xa Level POC ABG pH POC ABG pCO2 POC ABG pO2 Sodium Potassium Chloride Carbon Dioxide BUN Creatinine Glucose POC Glucose 136 H 143 H Lactic Acid Calcium Phosphorus Total Bilirubin C-Reactive Protein NT-Pro-B Natriuret Pep Total Protein Albumin Urine WBC (Auto) Urine Creatinine 08/24/18 08/25/18 08/26/18 21:42 06:35 07:59 WBC RBC Hgb Hct MCV MCH MCHC RDW Plt Count Lymph % (Auto) [place] % (Auto) Lymph # [place] # Seg Neutrophils % Seg Neuts % (Manual) Lymphocytes % (Manual) Monocytes % (Manual) Nucleated RBC % Seg Neutrophils # Seg Neutrophils # Man Lymphocytes # (Manual) Monocytes # (Manual) PT INR APTT D-Dimer Heparin Anti-Xa Level POC ABG pH POC ABG pCO2 POC ABG pO2 Sodium Potassium Chloride Carbon Dioxide BUN Creatinine Glucose POC Glucose 107 H 119 H 125 H Lactic Acid Calcium Phosphorus Total Bilirubin C-Reactive Protein NT-Pro-B Natriuret Pep Total Protein Albumin Urine WBC (Auto) Urine Creatinine 08/26/18 08/26/18 08/26/18 12:23 17:06 21:26 WBC RBC Hgb Hct MCV MCH MCHC RDW Plt Count Lymph % (Auto) [place] % (Auto) Lymph # [place] # Seg Neutrophils % Seg Neuts % (Manual) Lymphocytes % (Manual) Monocytes % (Manual) Nucleated RBC % Seg Neutrophils # Seg Neutrophils # Man Lymphocytes # (Manual) Monocytes # (Manual) PT INR APTT D-Dimer Heparin Anti-Xa Level POC ABG pH POC ABG pCO2 POC ABG pO2 Sodium Potassium Chloride Carbon Dioxide BUN Creatinine Glucose POC Glucose 126 H 123 H 112 H Lactic Acid Calcium Phosphorus Total Bilirubin C-Reactive Protein NT-Pro-B Natriuret Pep Total Protein Albumin Urine WBC (Auto) Urine Creatinine 08/27/18 08/27/18 08/27/18 07:38 15:29 21:17 WBC RBC Hgb Hct MCV MCH MCHC RDW Plt Count Lymph % (Auto) [place] % (Auto) Lymph # [place] # Seg Neutrophils % Seg Neuts % (Manual) Lymphocytes % (Manual) Monocytes % (Manual) Nucleated RBC % Seg Neutrophils # Seg Neutrophils # Man Lymphocytes # (Manual) Monocytes # (Manual) PT INR APTT D-Dimer Heparin Anti-Xa Level POC ABG pH POC ABG pCO2 POC ABG pO2 Sodium Potassium Chloride Carbon Dioxide BUN Creatinine Glucose POC Glucose 162 H 141 H 125 H Lactic Acid Calcium Phosphorus Total Bilirubin C-Reactive Protein NT-Pro-B Natriuret Pep Total Protein Albumin Urine WBC (Auto) Urine Creatinine 08/28/18 08/28/18 05:56 14:05 WBC RBC Hgb Hct MCV MCH MCHC RDW Plt Count Lymph % (Auto) [place] % (Auto) Lymph # [place] # Seg Neutrophils % Seg Neuts % (Manual) Lymphocytes % (Manual) Monocytes % (Manual) Nucleated RBC % Seg Neutrophils # Seg Neutrophils # Man Lymphocytes # (Manual) Monocytes # (Manual) PT INR APTT D-Dimer Heparin Anti-Xa Level POC ABG pH POC ABG pCO2 POC ABG pO2 Sodium Potassium Chloride Carbon Dioxide BUN Creatinine Glucose POC Glucose 130 H 117 H Lactic Acid Calcium Phosphorus Total Bilirubin C-Reactive Protein NT-Pro-B Natriuret Pep Total Protein Albumin Urine WBC (Auto) Urine Creatinine Allied health notes reviewed: nursing
[2018-08-28] MEDS: LANTUS SUB-Q SCH (22:02)
[2018-08-29] MEDS: PULMICORT IH SCH ×2 (07:12→21:08)
[2018-08-29] MEDS: BROVANA NEBU IH SCH ×2 (07:12→21:08)
[2018-08-29] MEDS: PEPCID PO SCH ×2 (10:47→21:33)
[2018-08-29] MEDS: CORDARONE PO SCH ×2 (10:47→21:32)
[2018-08-29] MEDS: PRAVACHOL PO SCH (10:47)
[2018-08-29] MEDS: ELIQUIS PO SCH ×2 (10:47→21:32)
[2018-08-29] MEDS: VITAMIN B-12 PO SCH (10:47)
[2018-08-29] MEDS: TYLENOL FEEDTUBE PRN (10:48)
[2018-08-29] MEDS: SODIUM CHLORIDE FLUSH SYRINGE 10 ML IV SCH ×2 (10:48→21:33)
[2018-08-29] MEDS: HumaLOG SUB-Q SCH ×3 (12:59→23:09)
--- NOTE | 2018-08-29 13:23 | Progress Note ---
Assessment and Plan Assessment and plan: patient is 73 yo with H/O COPD, PVD, HTN, HLD, Seizure Disorder, Skin Cancer presented with chest pain, shortness of breath. -He presented in A. fib with RVR, he was medically managed and transitioned from IV to oral medications -The patient suffered respiratory failure for which she was on the ventilator which required prolonged weaning, therefore trach and PEG was placed on 08/11/19. The patient is currently on Trache collar with FiO2 of 50% , oxygen is being weaned -The patient completed a course of antibiotics for treatment of bacteremia due to Streptococcus anginosus -He was medically treated for acute renal failure with IV fluids and that has now resolved -The patient also suffers a urethral stricture with obstruction and therefore we received a Osborne cath that was placed by urology which is not to be removed -He was medically treated for COPD exacerbation, and medications were optimized for his chronic conditions -The patient's is currently awaiting Acute rehab placement in IRU on 3rd floor Diagnosis Septicemia Streptococcus anginous is bacteremia Left lower lobe pneumonia Acute hypoxia was a failure on mechanical ventilator greater than 96 hours Atrial fibrillation with RVR Acute renal failure due to vasomotor nephropathy, Hematuria/Urethral stricture. COPD exacerbation. Hypertension. Hyperlipidemia. Peripheral vascular disease. Disposition.Plan is acute rehab placement, auth in progress History Interval history: Review of systems Constitutional: No fevers, no malaise, no joint pains CVS: No chest pain, no orthopnea, no dyspnea on exertion, no pedal edema GI: No abdominal pain, no diarrhea, no vomiting, no constipation Respiratory: No shortness of breath, no wheezing, no coughing Hospitalist Physical - Physical exam Narrative exam: General.: Appears well, no distress, nontoxic HEENT: Tracheostomy in place Neck: supple Cardiac: S1-S2 heard Lungs: clear to auscultation bilaterally Abdomen: soft , nontender, nondistended, bowel sounds positive Extremities: no edema clubbing or cyanosis Skin: no rash or lesions Neurologic: no gross focal deficits Psych: calm, and cooperative - Constitutional Vitals: Temp Pulse Resp BP Pulse Ox 98.1 F 90 20 128/66 97 08/29/18 12:04 08/29/18 07:14 08/29/18 12:04 08/29/18 12:04 08/29/18 08:18 General appearance: Present: other (intubated on mechanical ventilation) Results - Labs CBC & Chem 7: 08/23/18 04:37 08/23/18 04:37 Labs: Laboratory Last Values WBC 9.3 K/mm3 (4.5-11.0) 08/23/18 04:37 RBC 2.94 M/mm3 (3.65-5.03) L 08/23/18 04:37 Hgb 9.7 gm/dl (11.8-15.2) L 08/23/18 04:37 Hct 30.0 % (35.5-45.6) L 08/23/18 04:37 MCV 102 fl (84-94) H 08/23/18 04:37 MCH 33 pg (28-32) H 08/23/18 04:37 MCHC 33 % (32-34) 08/23/18 04:37 RDW 17.0 % (13.2-15.2) H 08/23/18 04:37 Plt Count 509 K/mm3 (140-440) H 08/23/18 04:37 Lymph % (Auto) 3.8 % (13.4-35.0) L 08/16/18 11:06 [place] % (Auto) 5.7 % (0.0-7.3) 08/16/18 11:06 Eos % (Auto) 0.6 % (0.0-4.3) 08/16/18 11:06 Baso % (Auto) 0.4 % (0.0-1.8) 08/16/18 11:06 Lymph # 0.4 K/mm3 (1.2-5.4) L 08/16/18 11:06 [place] # 0.6 K/mm3 (0.0-0.8) 08/16/18 11:06 Eos # 0.1 K/mm3 (0.0-0.4) 08/16/18 11:06 Baso # 0.0 K/mm3 (0.0-0.1) 08/16/18 11:06 Add Manual Diff Complete 08/08/18 02:09 Total Counted 100 08/08/18 02:09 Seg Neutrophils % 89.5 % (40.0-70.0) H 08/16/18 11:06 Seg Neuts % (Manual) 73.0 % (40.0-70.0) H 08/08/18 02:09 Band Neutrophils % 5.0 % 08/08/18 02:09 Lymphocytes % (Manual) 9.0 % (13.4-35.0) L 08/08/18 02:09 Reactive Lymphs % (Man) 0 % 08/08/18 02:09 Monocytes % (Manual) 10.0 % (0.0-7.3) H 08/08/18 02:09 Eosinophils % (Manual) 0 % (0.0-4.3) 08/08/18 02:09 Basophils % (Manual) 0 % (0.0-1.8) 08/08/18 02:09 Metamyelocytes % 3.0 % 08/08/18 02:09 Myelocytes % 0 % 08/08/18 02:09 Promyelocytes % 0 % 08/08/18 02:09 Blast Cells % 0 % 08/08/18 02:09 Nucleated RBC % Not Reportable 08/08/18 02:09 Seg Neutrophils # 9.1 K/mm3 (1.8-7.7) H 08/16/18 11:06 Seg Neutrophils # Man 10.7 K/mm3 (1.8-7.7) H 08/08/18 02:09 Band Neutrophils # 0.7 K/mm3 08/08/18 02:09 Lymphocytes # (Manual) 1.3 K/mm3 (1.2-5.4) 08/08/18 02:09 Abs React Lymphs (Man) 0.0 K/mm3 08/08/18 02:09 Monocytes # (Manual) 1.5 K/mm3 (0.0-0.8) H 08/08/18 02:09 Eosinophils # (Manual) 0.0 K/mm3 (0.0-0.4) 08/08/18 02:09 Basophils # (Manual) 0.0 K/mm3 (0.0-0.1) 08/08/18 02:09 Metamyelocytes # 0.4 K/mm3 08/08/18 02:09 Myelocytes # 0.0 K/mm3 08/08/18 02:09 Promyelocytes # 0.0 K/mm3 08/08/18 02:09 Blast Cells # 0.0 K/mm3 08/08/18 02:09 Pathologist Review 07/28/18 06:01 WBC Morphology Not Reportable 08/08/18 02:09 Hypersegmented Neuts Not Reportable 08/08/18 02:09 Hyposegmented Neuts Not Reportable 08/08/18 02:09 Hypogranular Neuts Not Reportable 08/08/18 02:09 Smudge Cells Not Reportable 08/08/18 02:09 Toxic Granulation Not Reportable 08/08/18 02:09 Toxic Vacuolation Not Reportable 08/08/18 02:09 Dohle Bodies Not Reportable 08/08/18 02:09 Pelger-Huet Anomaly Not Reportable 08/08/18 02:09 Janiya Rods Not Reportable 08/08/18 02:09 Platelet Estimate Appears normal 08/08/18 02:09 Clumped Platelets Not Reportable 08/08/18 02:09 Plt Clumps, EDTA Not Reportable 08/08/18 02:09 Large Platelets Not Reportable 08/08/18 02:09 Giant Platelets Not Reportable 08/08/18 02:09 Platelet Satelliting Not Reportable 08/08/18 02:09 Plt Morphology Comment Not Reportable 08/08/18 02:09 RBC Morphology Not Reportable 08/08/18 02:09 Dimorphic RBCs Not Reportable 08/08/18 02:09 Polychromasia Not Reportable 08/08/18 02:09 Hypochromasia Few 08/08/18 02:09 Poikilocytosis Not Reportable 08/08/18 02:09 Anisocytosis 1+ 08/08/18 02:09 Microcytosis Not Reportable 08/08/18 02:09 Macrocytosis Not Reportable 08/08/18 02:09 Spherocytes Not Reportable 08/08/18 02:09 Pappenheimer Bodies Not Reportable 08/08/18 02:09 Sickle Cells Not Reportable 08/08/18 02:09 Target Cells Not Reportable 08/08/18 02:09 Tear Drop Cells Not Reportable 08/08/18 02:09 Ovalocytes Not Reportable 08/08/18 02:09 Stomatocytes Few 08/08/18 02:09 Helmet Cells Not Reportable 08/08/18 02:09 Lr-Mauldin Bodies Not Reportable 08/08/18 02:09 [place] Rings Not Reportable 08/08/18 02:09 [place] Cells Not Reportable 08/08/18 02:09 Bite Cells Not Reportable 08/08/18 02:09 Crenated Cell Not Reportable 08/08/18 02:09 Elliptocytes Not Reportable 08/08/18 02:09 Acanthocytes (Spur) Not Reportable 08/08/18 02:09 Rouleaux Not Reportable 08/08/18 02:09 Hemoglobin C Crystals Not Reportable 08/08/18 02:09 Schistocytes Not Reportable 08/08/18 02:09 Malaria parasites Not Reportable 08/08/18 02:09 Jigar Bodies Not Reportable 08/08/18 02:09 Hem Pathologist Commnt No 08/08/18 02:09 PT 13.4 Sec. (12.2-14.9) 08/07/18 15:08 INR 0.98 (0.87-1.13) 08/07/18 15:08 APTT 23.2 Sec. (24.2-36.6) L 08/07/18 15:08 D-Dimer 798.17 ng/mlDDU (0-234) H 07/27/18 15:52 Heparin Anti-Xa Level 1.18 U.I./ml (0.3-0.7) H 08/12/18 14:56 POC ABG pH 7.370 (7.35-7.45) 08/19/18 05:16 POC ABG pCO2 57.5 (35-45) H 08/19/18 05:16 POC ABG pO2 65 (80-105) L 08/19/18 05:16 POC ABG HCO3 33.2 08/19/18 05:16 POC ABG Total CO2 35 08/19/18 05:16 POC ABG O2 Sat 91 08/19/18 05:16 POC ABG Base Excess 8 08/19/18 05:16 FiO2 40 % 08/19/18 05:16 Sodium 138 mmol/L (137-145) 08/23/18 04:37 Potassium 4.0 mmol/L (3.6-5.0) 08/23/18 04:37 Chloride 99.0 mmol/L (98-107) 08/23/18 04:37 Carbon Dioxide 30 mmol/L (22-30) 08/23/18 04:37 Anion Gap 13 mmol/L 08/23/18 04:37 BUN 16 mg/dL (9-20) 08/23/18 04:37 Creatinine 0.5 mg/dL (0.8-1.5) L 08/23/18 04:37 Estimated GFR > 60 ml/min 08/23/18 04:37 BUN/Creatinine Ratio 32 % 08/23/18 04:37 Glucose 141 mg/dL (75-100) H 08/23/18 04:37 POC Glucose 160 (70-105) H 08/29/18 12:04 Lactic Acid 1.30 mmol/L (0.7-2.0) 08/03/18 16:48 Calcium 8.8 mg/dL (8.4-10.2) 08/23/18 04:37 Phosphorus 3.30 mg/dL (2.5-4.5) 08/19/18 04:55 Magnesium 2.30 mg/dL (1.7-2.3) 08/19/18 04:55 Total Bilirubin 1.30 mg/dL (0.1-1.2) H 07/27/18 12:59 AST 15 units/L (5-40) 07/27/18 12:59 ALT 16 units/L (7-56) 07/27/18 12:59 Alkaline Phosphatase 62 units/L (35-129) 07/27/18 12:59 Troponin T < 0.010 ng/mL (0.00-0.029) 07/27/18 12:59 C-Reactive Protein 2.30 mg/dL (0.00-1.30) H 08/03/18 16:48 NT-Pro-B Natriuret Pep 3913 pg/mL (0-900) H 07/27/18 12:59 Total Protein 6.2 g/dL (6.3-8.2) L 07/27/18 12:59 Albumin 3.6 g/dL (3.9-5) L 07/27/18 12:59 Albumin/Globulin Ratio 1.4 % 07/27/18 12:59 Triglycerides 64 mg/dL (2-149) 08/08/18 14:02 TSH 1.180 mlU/mL (0.270-4.200) 07/27/18 15:52 Free T4 1.28 ng/dL (0.76-1.46) 07/27/18 15:52 Urine Color Yellow (Yellow) 08/11/18 12:50 Urine Turbidity Clear (Clear) 08/11/18 12:50 Urine pH 6.0 (5.0-7.0) 08/11/18 12:50 Ur Specific [place] 1.015 (1.003-1.030) 08/11/18 12:50 Urine Protein <15 mg/dl mg/dL (Negative) 08/11/18 12:50 Urine Glucose (UA) 50 mg/dL (Negative) 08/11/18 12:50 Urine Ketones Neg mg/dL (Negative) 08/11/18 12:50 Urine Blood Neg (Negative) 08/11/18 12:50 Urine Nitrite Neg (Negative) 08/11/18 12:50 Urine Bilirubin Neg (Negative) 08/11/18 12:50 Urine Urobilinogen 4.0 mg/dL (<2.0) 08/11/18 12:50 Ur Leukocyte Esterase Neg (Negative) 08/11/18 12:50 Urine WBC (Auto) 2.0 /HPF (0.0-6.0) 08/11/18 12:50 Urine RBC (Auto) 2.0 /HPF (0.0-6.0) 08/11/18 12:50 U Epithel Cells (Auto) 2.0 /HPF (0-13.0) 07/29/18 09:24 Urine Bacteria (Auto) 1+ /HPF (Negative) 08/11/18 12:50 Urine Mucus Few /HPF 08/11/18 12:50 Urine Yeast ([place]) 1+ /HPF 07/29/18 09:24 Urine Creatinine 72.3 mg/dL (0.1-20.0) H 07/29/18 09:24 Urine Sodium 12 mmol/L 07/29/18 09:24 Random Vancomycin 9.2 ug/mL (0-40.0) 07/29/18 04:21 Nutrition/Malnutrition Assess - Dietary Evaluation Nutrition/Malnutrition Findings: Nutrition Notes Start: 07/28/18 10:54 Freq: Status: Active Protocol: Document 08/23/18 14:09 CT (Rec: 08/23/18 14:53 CT [id number]) Co-Sign 08/23/18 14:09 RM Nutrition Notes Initial or Follow up Reassessment Current Diagnosis Acute Kidney Injury COPD Sepsis Hypertension Heart Failure Respiratory Failure Other Pertinent Diagnosis Hx of Skin Cancer Current Diet Nepro at 50ml/hr Labs/Tests Reviewed Pertinent Medications Reviewed Height 5 ft 8 in Weight 76 kg [place] Body Weight (lbs) 154.0 BMI 25.4 Weight change and time frame Recorded wt. loss likely d/t fluid change. Subjective/Other Information Nepro infusing at goal rate of 50mL/hr, well tolerated per RN. Burn Absent Trauma Absent #1 Nutrition Diagnosis Inadequate oral intake Diagnosis Progress(for reassessment Continues documentation) Is patient on ventilator? Yes Is Patient Ambulatory and/or Out of Bed No REE-([facility]-confined to bed) [phone] Calculation Used for Recommendations [facility] Additional Notes protein (1.2-2g/kg): 91-152g fluid: 1mL/kcal Nutrition Intervention Change Diet Order: Continue TF Nutrition Support: Nepro at 50mL/hr 250 mL free water flush q4h or per MD. Kcal 2,160 Protein (gm) 97 Fluid (mL) 872 Goal #1 TF tolerance and rate Goal #2 Continue to meet at least 80% of kcal needs and 80-100% of protein needs. Follow-Up By: 08/30/18 Additional Comments F/U: stable TF
--- NOTE | 2018-08-29 20:40 | Progress Note ---
Assessment and Plan Patient alert, awake and resting on T tube.Patients O2 requirements went up. FIO2 60% O2 saturation 96%. No acute respiratory distress.Patient having slight increase in respiratory secretions.Recommend frequent respiratory suctioning. - Patient Problems (1) Acute respiratory failure Current Visit: Yes Status: Acute Qualifiers: Respiratory failure complication: hypoxia Qualified Code(s): J96.01 - Acute respiratory failure with hypoxia Plan to address problem: T tube FIO2 60%. Brovanna/Budesonide aerosol treatments q 12 hours. Albuterol/atrovent aerosol treatments q 6 hours PRN for shortness of breath. Patient is on Apixaban. Continue famotidine. Frequent Respiratory suctioning. (2) Atrial fibrillation with RVR Current Visit: Yes Status: Acute Plan to address problem: Patient is on Apixaban. Management as per cardiology. (3) CHF (congestive heart failure) Current Visit: Yes Status: Acute Qualifiers: Heart failure type: systolic Heart failure chronicity: acute Qualified Code(s): I50.21 - Acute systolic (congestive) heart failure Plan to address problem: Management as per primary care and cardiology. (4) Pneumonia Current Visit: Yes Status: Acute Plan to address problem: Finished course of cefepime. (5) COPD (chronic obstructive pulmonary disease) Current Visit: Yes Status: Chronic Plan to address problem: T tube FIO2 60%. Brovanna/Budesonide aerosol treatments q 12 hours. Albuterol/atrovent aerosol treatments q 6 hours PRN for shortness of breath. Patient is on Apixaban. Continue famotidine. Frequent Respiratory suctioning (6) Hypertension Current Visit: Yes Status: Chronic Qualifiers: Hypertension type: essential hypertension Qualified Code(s): I10 - Essential (primary) hypertension Plan to address problem: Management as per primary care. Subjective Date of service: 08/29/18 Principal diagnosis: Acute hypoxemic respiratory failure; A-fib with RVR; Possible CHF; H/O DVT Interval history: Patient alert, awake and resting on T tube.Patients O2 requirements went up. FIO2 60% O2 saturation 96%. No acute respiratory distress.Patient having slight increase in respiratory secretions.Recommend frequent respiratory suctioning. Objective Vital Signs - 12hr 08/29/18 08/29/18 08/29/18 10:00 12:04 16:50 Temperature 98.1 F 97.8 F Pulse Rate 80 Respiratory 16 20 20 Rate Blood Pressure 128/66 126/67 O2 Sat by Pulse 95 88 Oximetry O2 Sat by Pulse Oximetry [ Assessment] 08/29/18 17:30 Temperature Pulse Rate Respiratory Rate Blood Pressure O2 Sat by Pulse Oximetry O2 Sat by Pulse 96 Oximetry [ Assessment] Constitutional: no acute distress, alert, other (elderly looking CM, normocephalic and atraumatic with normal respiratory effort) Eyes: non-icteric ENT: oropharynx moist, other (s/p tracheosomy) Neck: supple, no lymphadenopathy, no JVD, other (No thyromegaly) Effort: mildly labored Ascultation: Bilateral: diminished breath sounds, rhonchi Percussion: Bilateral: not dull Cardiovascular: irregular rhythm, other (+ systolic murmur) Gastrointestinal: normoactive bowel sounds, soft, non-tender, non-distended, other (No palpable HSM) Integumentary: rash, other (upper extremity edema) Extremities: no cyanosis, pink and warm, pulses normal, no ischemia or petechiae Neurologic: normal mental status, non-focal exam (grossly), pupils equal and round, CN II-XII normal, other (moves all extemities) Psychiatric: mood appropriate, affect normal CBC and BMP: 08/23/18 04:37 08/23/18 04:37 ABG, PT/INR, D-dimer: ABG POC ABG pH 7.370 (7.35-7.45) 08/19/18 05:16 POC ABG pCO2 57.5 (35-45) H 08/19/18 05:16 POC ABG pO2 65 (80-105) L 08/19/18 05:16 POC ABG HCO3 33.2 08/19/18 05:16 POC ABG Total CO2 35 08/19/18 05:16 POC ABG O2 Sat 91 08/19/18 05:16 PT/INR, D-dimer PT 13.4 Sec. (12.2-14.9) 08/07/18 15:08 INR 0.98 (0.87-1.13) 08/07/18 15:08 D-Dimer 798.17 ng/mlDDU (0-234) H 07/27/18 15:52 Abnormal lab findings: Abnormal Labs 07/27/18 07/27/1807/27/18 12:59 12:59 12:59 WBC 15.8 H RBC Hgb Hct MCV 104 H MCH 34 H MCHC RDW 16.3 H Plt Count Lymph % (Auto) [place] % (Auto) Lymph # [place] # Seg Neutrophils % Seg Neuts % (Manual) 88.0 H Lymphocytes % (Manual) 3.0 L Monocytes % (Manual) Nucleated RBC % Seg Neutrophils # Seg Neutrophils # Man 13.9 H Lymphocytes # (Manual) 0.5 L Monocytes # (Manual) PT 17.0 H INR 1.34 H APTT D-Dimer Heparin Anti-Xa Level POC ABG pH POC ABG pCO2 POC ABG pO2 Sodium Potassium Chloride Carbon Dioxide 21 L BUN 38 H Creatinine 1.6 H Glucose POC Glucose Lactic Acid Calcium Phosphorus Total Bilirubin 1.30 H C-Reactive Protein NT-Pro-B Natriuret Pep 3913 H Total Protein 6.2 L Albumin 3.6 L Urine WBC (Auto) Urine Creatinine 07/27/18 07/27/18 07/27/18 15:52 16:12 17:09 WBC RBC Hgb Hct MCV MCH MCHC RDW Plt Count Lymph % (Auto) [place] % (Auto) Lymph # [place] # Seg Neutrophils % Seg Neuts % (Manual) Lymphocytes % (Manual) Monocytes % (Manual) Nucleated RBC % Seg Neutrophils # Seg Neutrophils # Man Lymphocytes # (Manual) Monocytes # (Manual) PT 16.0 H INR 1.24 H APTT D-Dimer 798.17 H Heparin Anti-Xa Level POC ABG pH POC ABG pCO2 POC ABG pO2 Sodium Potassium Chloride Carbon Dioxide BUN Creatinine Glucose POC Glucose Lactic Acid 5.00 H* Calcium Phosphorus Total Bilirubin C-Reactive Protein NT-Pro-B Natriuret Pep Total Protein Albumin Urine WBC (Auto) Urine Creatinine 07/27/18 07/27/18 07/27/18 17:59 18:07 21:31 WBC RBC Hgb Hct MCV MCH MCHC RDW Plt Count Lymph % (Auto) [place] % (Auto) Lymph # [place] # Seg Neutrophils % Seg Neuts % (Manual) Lymphocytes % (Manual) Monocytes % (Manual) Nucleated RBC % Seg Neutrophils # Seg Neutrophils # Man Lymphocytes # (Manual) Monocytes # (Manual) PT INR APTT D-Dimer Heparin Anti-Xa Level POC ABG pH 7.344 L POC ABG pCO2 POC ABG pO2 36 L Sodium Potassium Chloride Carbon Dioxide BUN Creatinine Glucose POC Glucose Lactic Acid 5.20 H* 5.00 H* Calcium Phosphorus Total Bilirubin C-Reactive Protein NT-Pro-B Natriuret Pep Total Protein Albumin Urine WBC (Auto) Urine Creatinine 07/27/18 07/27/18 07/27/18 21:57 22:42 23:26 WBC RBC Hgb Hct MCV MCH MCHC RDW Plt Count Lymph % (Auto) [place] % (Auto) Lymph # [place] # Seg Neutrophils % Seg Neuts % (Manual) Lymphocytes % (Manual) Monocytes % (Manual) Nucleated RBC % Seg Neutrophils # Seg Neutrophils # Man Lymphocytes # (Manual) Monocytes # (Manual) PT INR APTT D-Dimer Heparin Anti-Xa Level POC ABG pH 7.199 L POC ABG pCO2 62.0 H POC ABG pO2 Sodium Potassium Chloride Carbon Dioxide BUN Creatinine Glucose POC Glucose Lactic Acid 4.70 H* 5.00 H* Calcium Phosphorus Total Bilirubin C-Reactive Protein NT-Pro-B Natriuret Pep Total Protein Albumin Urine WBC (Auto) Urine Creatinine 07/28/18 07/28/18 07/28/18 00:45 05:40 05:58 WBC RBC Hgb Hct MCV MCH MCHC RDW Plt Count Lymph % (Auto) [place] % (Auto) Lymph # [place] # Seg Neutrophils % Seg Neuts % (Manual) Lymphocytes % (Manual) Monocytes % (Manual) Nucleated RBC % Seg Neutrophils # Seg Neutrophils # Man Lymphocytes # (Manual) Monocytes # (Manual) PT INR APTT D-Dimer Heparin Anti-Xa Level 0.11 L POC ABG pH 7.186 L POC ABG pCO2 60.1 H POC ABG pO2 68 L Sodium Potassium Chloride Carbon Dioxide BUN Creatinine Glucose POC Glucose Lactic Acid 4.70 H* Calcium Phosphorus Total Bilirubin C-Reactive Protein NT-Pro-B Natriuret Pep Total Protein Albumin Urine WBC (Auto) Urine Creatinine 07/28/18 07/28/18 07/28/18 06:01 06:01 07:19 WBC 12.5 H RBC 3.51 L Hgb 11.5 L Hct MCV 104 H MCH 33 H MCHC RDW 16.6 H Plt Count Lymph % (Auto) [place] % (Auto) Lymph # [place] # Seg Neutrophils % Seg Neuts % (Manual) Lymphocytes % (Manual) Monocytes % (Manual) Nucleated RBC % Seg Neutrophils # Seg Neutrophils # Man Lymphocytes # (Manual) Monocytes # (Manual) PT INR APTT D-Dimer Heparin Anti-Xa Level 0.14 L POC ABG pH POC ABG pCO2 POC ABG pO2 Sodium 135 L Potassium 5.1 H Chloride 95.0 L Carbon Dioxide 21 L BUN 54 H Creatinine 2.6 H D Glucose POC Glucose Lactic Acid Calcium Phosphorus Total Bilirubin C-Reactive Protein NT-Pro-B Natriuret Pep Total Protein Albumin Urine WBC (Auto) Urine Creatinine 07/28/18 07/28/18 07/28/18 07:19 09:20 11:06 WBC RBC Hgb Hct MCV MCH MCHC RDW Plt Count Lymph % (Auto) [place] % (Auto) Lymph # [place] # Seg Neutrophils % Seg Neuts % (Manual) Lymphocytes % (Manual) Monocytes % (Manual) Nucleated RBC % Seg Neutrophils # Seg Neutrophils # Man Lymphocytes # (Manual) Monocytes # (Manual) PT INR APTT D-Dimer Heparin Anti-Xa Level POC ABG pH 7.266 L POC ABG pCO2 49.7 H POC ABG pO2 74 L Sodium Potassium Chloride Carbon Dioxide BUN Creatinine Glucose POC Glucose Lactic Acid 4.00 H* 3.90 H* Calcium Phosphorus Total Bilirubin C-Reactive Protein NT-Pro-B Natriuret Pep Total Protein Albumin Urine WBC (Auto) Urine Creatinine 07/28/18 07/28/18 07/28/18 15:06 20:45 23:36 WBC RBC Hgb Hct MCV MCH MCHC RDW Plt Count Lymph % (Auto) [place] % (Auto) Lymph # [place] # Seg Neutrophils % Seg Neuts % (Manual) Lymphocytes % (Manual) Monocytes % (Manual) Nucleated RBC % Seg Neutrophils # Seg Neutrophils # Man Lymphocytes # (Manual) Monocytes # (Manual) PT INR APTT D-Dimer Heparin Anti-Xa Level 0.15 L POC ABG pH POC ABG pCO2 POC ABG pO2 Sodium 134 L Potassium 5.2 H Chloride Carbon Dioxide BUN 58 H Creatinine 2.1 H Glucose 110 H POC Glucose 125 H Lactic Acid Calcium Phosphorus Total Bilirubin C-Reactive Protein NT-Pro-B Natriuret Pep Total Protein Albumin Urine WBC (Auto) Urine Creatinine 07/29/18 07/29/18 07/29/18 01:12 04:21 04:21 WBC RBC 3.21 L Hgb 10.8 L Hct 33.0 L MCV 103 H MCH 34 H MCHC RDW 16.4 H Plt Count Lymph % (Auto) [place] % (Auto) Lymph # [place] # Seg Neutrophils % Seg Neuts % (Manual) Lymphocytes % (Manual) 11.0 L Monocytes % (Manual) Nucleated RBC % Seg Neutrophils # Seg Neutrophils # Man Lymphocytes # (Manual) 1.0 L Monocytes # (Manual) PT INR APTT D-Dimer Heparin Anti-Xa Level 0.21 L POC ABG pH POC ABG pCO2 POC ABG pO2 Sodium Potassium Chloride Carbon Dioxide BUN 48 H Creatinine 1.6 H Glucose 166 H POC Glucose Lactic Acid Calcium Phosphorus Total Bilirubin C-Reactive Protein NT-Pro-B Natriuret Pep Total Protein Albumin Urine WBC (Auto) Urine Creatinine 07/29/18 07/29/18 07/29/18 05:19 08:16 09:24 WBC RBC Hgb Hct MCV MCH MCHC RDW Plt Count Lymph % (Auto) [place] % (Auto) Lymph # [place] # Seg Neutrophils % Seg Neuts % (Manual) Lymphocytes % (Manual) Monocytes % (Manual) Nucleated RBC % Seg Neutrophils # Seg Neutrophils # Man Lymphocytes # (Manual) Monocytes # (Manual) PT INR APTT D-Dimer Heparin Anti-Xa Level 0.25 L POC ABG pH POC ABG pCO2 POC ABG pO2 Sodium Potassium Chloride Carbon Dioxide BUN Creatinine Glucose POC Glucose 181 H Lactic Acid Calcium Phosphorus Total Bilirubin C-Reactive Protein NT-Pro-B Natriuret Pep Total Protein Albumin Urine WBC (Auto) 29.0 H Urine Creatinine 07/29/18 07/29/18 07/29/18 09:24 10:00 15:03 WBC RBC Hgb Hct MCV MCH MCHC RDW Plt Count Lymph % (Auto) [place] % (Auto) Lymph # [place] # Seg Neutrophils % Seg Neuts % (Manual) Lymphocytes % (Manual) Monocytes % (Manual) Nucleated RBC % Seg Neutrophils # Seg Neutrophils # Man Lymphocytes # (Manual) Monocytes # (Manual) PT INR APTT D-Dimer Heparin Anti-Xa Level POC ABG pH POC ABG pCO2 POC ABG pO2 Sodium Potassium Chloride Carbon Dioxide BUN Creatinine Glucose POC Glucose 195 H 167 H Lactic Acid Calcium Phosphorus Total Bilirubin C-Reactive Protein NT-Pro-B Natriuret Pep Total Protein Albumin Urine WBC (Auto) Urine Creatinine 72.3 H 07/29/18 07/29/18 07/30/18 17:51 21:32 01:38 WBC RBC Hgb Hct MCV MCH MCHC RDW Plt Count Lymph % (Auto) [place] % (Auto) Lymph # [place] # Seg Neutrophils % Seg Neuts % (Manual) Lymphocytes % (Manual) Monocytes % (Manual) Nucleated RBC % Seg Neutrophils # Seg Neutrophils # Man Lymphocytes # (Manual) Monocytes # (Manual) PT INR APTT D-Dimer Heparin Anti-Xa Level POC ABG pH POC ABG pCO2 POC ABG pO2 Sodium Potassium Chloride Carbon Dioxide BUN Creatinine Glucose POC Glucose 167 H 217 H 194 H Lactic Acid Calcium Phosphorus Total Bilirubin C-Reactive Protein NT-Pro-B Natriuret Pep Total Protein Albumin Urine WBC (Auto) Urine Creatinine 07/30/18 07/30/18 07/30/18 03:21 05:13 10:18 WBC RBC Hgb Hct MCV MCH MCHC RDW Plt Count Lymph % (Auto) [place] % (Auto) Lymph # [place] # Seg Neutrophils % Seg Neuts % (Manual) Lymphocytes % (Manual) Monocytes % (Manual) Nucleated RBC % Seg Neutrophils # Seg Neutrophils # Man Lymphocytes # (Manual) Monocytes # (Manual) PT INR APTT D-Dimer Heparin Anti-Xa Level POC ABG pH POC ABG pCO2 50.3 H POC ABG pO2 78 L Sodium Potassium Chloride Carbon Dioxide BUN 41 H Creatinine Glucose 202 H POC Glucose 151 H Lactic Acid Calcium Phosphorus Total Bilirubin C-Reactive Protein NT-Pro-B Natriuret Pep Total Protein Albumin Urine WBC (Auto) Urine Creatinine 07/30/18 07/30/18 07/30/18 11:29 16:28 18:12 WBC RBC Hgb Hct MCV MCH MCHC RDW Plt Count Lymph % (Auto) [place] % (Auto) Lymph # [place] # Seg Neutrophils % Seg Neuts % (Manual) Lymphocytes % (Manual) Monocytes % (Manual) Nucleated RBC % Seg Neutrophils # Seg Neutrophils # Man Lymphocytes # (Manual) Monocytes # (Manual) PT INR APTT D-Dimer Heparin Anti-Xa Level POC ABG pH 7.326 L POC ABG pCO2 53.2 H POC ABG pO2 70 L Sodium Potassium Chloride Carbon Dioxide BUN Creatinine Glucose POC Glucose 247 H 212 H Lactic Acid Calcium Phosphorus Total Bilirubin C-Reactive Protein NT-Pro-B Natriuret Pep Total Protein Albumin Urine WBC (Auto) Urine Creatinine 07/30/18 07/30/18 07/31/18 20:08 21:52 01:59 WBC RBC Hgb Hct MCV MCH MCHC RDW Plt Count Lymph % (Auto) [place] % (Auto) Lymph # [place] # Seg Neutrophils % Seg Neuts % (Manual) Lymphocytes % (Manual) Monocytes % (Manual) Nucleated RBC % Seg Neutrophils # Seg Neutrophils # Man Lymphocytes # (Manual) Monocytes # (Manual) PT INR APTT D-Dimer Heparin Anti-Xa Level POC ABG pH POC ABG pCO2 POC ABG pO2 Sodium Potassium Chloride Carbon Dioxide BUN Creatinine Glucose POC Glucose 205 H 215 H 242 H Lactic Acid Calcium Phosphorus Total Bilirubin C-Reactive Protein NT-Pro-B Natriuret Pep Total Protein Albumin Urine WBC (Auto) Urine Creatinine 07/31/18 07/31/18 07/31/18 03:14 03:14 04:55 WBC RBC Hgb 10.6 L Hct 33.2 L MCV MCH MCHC RDW Plt Count Lymph % (Auto) [place] % (Auto) Lymph # [place] # Seg Neutrophils % Seg Neuts % (Manual) Lymphocytes % (Manual) Monocytes % (Manual) Nucleated RBC % Seg Neutrophils # Seg Neutrophils # Man Lymphocytes # (Manual) Monocytes # (Manual) PT INR APTT D-Dimer Heparin Anti-Xa Level POC ABG pH 7.331 L POC ABG pCO2 67.1 H POC ABG pO2 Sodium Potassium Chloride Carbon Dioxide BUN 36 H Creatinine 0.7 L Glucose 242 H POC Glucose Lactic Acid Calcium 10.3 H Phosphorus 2.30 L Total Bilirubin C-Reactive Protein NT-Pro-B Natriuret Pep Total Protein Albumin Urine WBC (Auto) Urine Creatinine 07/31/18 07/31/18 07/31/18 05:37 10:08 14:07 WBC RBC Hgb Hct MCV MCH MCHC RDW Plt Count Lymph % (Auto) [place] % (Auto) Lymph # [place] # Seg Neutrophils % Seg Neuts % (Manual) Lymphocytes % (Manual) Monocytes % (Manual) Nucleated RBC % Seg Neutrophils # Seg Neutrophils # Man Lymphocytes # (Manual) Monocytes # (Manual) PT INR APTT D-Dimer Heparin Anti-Xa Level POC ABG pH POC ABG pCO2 POC ABG pO2 Sodium Potassium Chloride Carbon Dioxide BUN Creatinine Glucose POC Glucose 193 H 247 H 225 H Lactic Acid Calcium Phosphorus Total Bilirubin C-Reactive Protein NT-Pro-B Natriuret Pep Total Protein Albumin Urine WBC (Auto) Urine Creatinine 07/31/18 07/31/18 08/01/18 18:12 21:34 02:00 WBC RBC Hgb Hct MCV MCH MCHC RDW Plt Count Lymph % (Auto) [place] % (Auto) Lymph # [place] # Seg Neutrophils % Seg Neuts % (Manual) Lymphocytes % (Manual) Monocytes % (Manual) Nucleated RBC % Seg Neutrophils # Seg Neutrophils # Man Lymphocytes # (Manual) Monocytes # (Manual) PT INR APTT D-Dimer Heparin Anti-Xa Level POC ABG pH POC ABG pCO2 POC ABG pO2 Sodium Potassium Chloride Carbon Dioxide BUN Creatinine Glucose POC Glucose 197 H 204 H 239 H Lactic Acid Calcium Phosphorus Total Bilirubin C-Reactive Protein NT-Pro-B Natriuret Pep Total Protein Albumin Urine WBC (Auto) Urine Creatinine 08/01/18 08/01/18 08/01/18 04:13 04:37 05:29 WBC RBC Hgb Hct MCV MCH MCHC RDW Plt Count Lymph % (Auto) [place] % (Auto) Lymph # [place] # Seg Neutrophils % Seg Neuts % (Manual) Lymphocytes % (Manual) Monocytes % (Manual) Nucleated RBC % Seg Neutrophils # Seg Neutrophils # Man Lymphocytes # (Manual) Monocytes # (Manual) PT INR APTT D-Dimer Heparin Anti-Xa Level POC ABG pH 7.296 L POC ABG pCO2 81.9 H POC ABG pO2 190 H Sodium 150 H D Potassium Chloride Carbon Dioxide 37 H D BUN 37 H Creatinine 0.6 L Glucose 223 H POC Glucose 219 H Lactic Acid Calcium Phosphorus Total Bilirubin C-Reactive Protein NT-Pro-B Natriuret Pep Total Protein Albumin Urine WBC (Auto) Urine Creatinine 08/01/18 08/01/18 08/01/18 09:28 11:00 17:36 WBC RBC Hgb Hct MCV MCH MCHC RDW Plt Count Lymph % (Auto) [place] % (Auto) Lymph # [place] # Seg Neutrophils % Seg Neuts % (Manual) Lymphocytes % (Manual) Monocytes % (Manual) Nucleated RBC % Seg Neutrophils # Seg Neutrophils # Man Lymphocytes # (Manual) Monocytes # (Manual) PT INR APTT D-Dimer Heparin Anti-Xa Level POC ABG pH POC ABG pCO2 61.2 H POC ABG pO2 69 L Sodium Potassium Chloride Carbon Dioxide BUN Creatinine Glucose POC Glucose 185 H 234 H Lactic Acid Calcium Phosphorus Total Bilirubin C-Reactive Protein NT-Pro-B Natriuret Pep Total Protein Albumin Urine WBC (Auto) Urine Creatinine 08/01/18 08/02/18 08/02/18 21:54 00:08 00:44 WBC RBC Hgb Hct MCV MCH MCHC RDW Plt Count Lymph % (Auto) [place] % (Auto) Lymph # [place] # Seg Neutrophils % Seg Neuts % (Manual) Lymphocytes % (Manual) Monocytes % (Manual) Nucleated RBC % Seg Neutrophils # Seg Neutrophils # Man Lymphocytes # (Manual) Monocytes # (Manual) PT INR APTT D-Dimer Heparin Anti-Xa Level 0.77 H POC ABG pH POC ABG pCO2 66.4 H POC ABG pO2 64 L Sodium Potassium Chloride Carbon Dioxide BUN Creatinine Glucose POC Glucose 242 H Lactic Acid Calcium Phosphorus Total Bilirubin C-Reactive Protein NT-Pro-B Natriuret Pep Total Protein Albumin Urine WBC (Auto) Urine Creatinine 08/02/18 08/02/18 08/02/18 02:46 04:45 04:45 WBC RBC Hgb 10.7 L Hct 33.7 L MCV MCH MCHC RDW Plt Count Lymph % (Auto) [place] % (Auto) Lymph # [place] # Seg Neutrophils % Seg Neuts % (Manual) Lymphocytes % (Manual) Monocytes % (Manual) Nucleated RBC % Seg Neutrophils # Seg Neutrophils # Man Lymphocytes # (Manual) Monocytes # (Manual) PT INR APTT D-Dimer Heparin Anti-Xa Level POC ABG pH POC ABG pCO2 POC ABG pO2 Sodium 152 H Potassium Chloride 108.1 H Carbon Dioxide 39 H BUN 38 H Creatinine 0.6 L Glucose 226 H POC Glucose 206 H Lactic Acid Calcium Phosphorus Total Bilirubin C-Reactive Protein NT-Pro-B Natriuret Pep Total Protein Albumin Urine WBC (Auto) Urine Creatinine 08/02/18 08/02/18 08/02/18 05:31 09:46 14:23 WBC RBC Hgb Hct MCV MCH MCHC RDW Plt Count Lymph % (Auto) [place] % (Auto) Lymph # [place] # Seg Neutrophils % Seg Neuts % (Manual) Lymphocytes % (Manual) Monocytes % (Manual) Nucleated RBC % Seg Neutrophils # Seg Neutrophils # Man Lymphocytes # (Manual) Monocytes # (Manual) PT INR APTT D-Dimer Heparin Anti-Xa Level 0.91 H POC ABG pH POC ABG pCO2 POC ABG pO2 Sodium Potassium Chloride Carbon Dioxide BUN Creatinine Glucose POC Glucose 214 H 210 H Lactic Acid Calcium Phosphorus Total Bilirubin C-Reactive Protein NT-Pro-B Natriuret Pep Total Protein Albumin Urine WBC (Auto) Urine Creatinine 08/02/18 08/02/18 08/02/18 15:46 17:56 21:50 WBC RBC Hgb Hct MCV MCH MCHC RDW Plt Count Lymph % (Auto) [place] % (Auto) Lymph # [place] # Seg Neutrophils % Seg Neuts % (Manual) Lymphocytes % (Manual) Monocytes % (Manual) Nucleated RBC % Seg Neutrophils # Seg Neutrophils # Man Lymphocytes # (Manual) Monocytes # (Manual) PT INR APTT D-Dimer Heparin Anti-Xa Level 0.99 H POC ABG pH POC ABG pCO2 POC ABG pO2 Sodium Potassium Chloride Carbon Dioxide BUN Creatinine Glucose POC Glucose 252 H 222 H Lactic Acid Calcium Phosphorus Total Bilirubin C-Reactive Protein NT-Pro-B Natriuret Pep Total Protein Albumin Urine WBC (Auto) Urine Creatinine 08/03/18 08/03/18 08/03/18 02:18 05:21 05:25 WBC RBC Hgb Hct MCV MCH MCHC RDW Plt Count Lymph % (Auto) [place] % (Auto) Lymph # [place] # Seg Neutrophils % Seg Neuts % (Manual) Lymphocytes % (Manual) Monocytes % (Manual) Nucleated RBC % Seg Neutrophils # Seg Neutrophils # Man Lymphocytes # (Manual) Monocytes # (Manual) PT INR APTT D-Dimer Heparin Anti-Xa Level POC ABG pH POC ABG pCO2 POC ABG pO2 Sodium 151 H Potassium Chloride 107.3 H Carbon Dioxide 37 H BUN 42 H Creatinine 0.6 L Glucose 263 H POC Glucose 241 H 241 H Lactic Acid Calcium Phosphorus Total Bilirubin C-Reactive Protein NT-Pro-B Natriuret Pep Total Protein Albumin Urine WBC (Auto) Urine Creatinine 08/03/18 08/03/18 08/03/18 09:11 12:20 14:33 WBC RBC Hgb Hct MCV MCH MCHC RDW Plt Count Lymph % (Auto) [place] % (Auto) Lymph # [place] # Seg Neutrophils % Seg Neuts % (Manual) Lymphocytes % (Manual) Monocytes % (Manual) Nucleated RBC % Seg Neutrophils # Seg Neutrophils # Man Lymphocytes # (Manual) Monocytes # (Manual) PT INR APTT D-Dimer Heparin Anti-Xa Level POC ABG pH POC ABG pCO2 POC ABG pO2 Sodium Potassium Chloride Carbon Dioxide BUN Creatinine Glucose POC Glucose 272 H 234 H 247 H Lactic Acid Calcium Phosphorus Total Bilirubin C-Reactive Protein NT-Pro-B Natriuret Pep Total Protein Albumin Urine WBC (Auto) Urine Creatinine 08/03/18 08/03/18 08/04/18 16:48 21:21 01:56 WBC RBC Hgb Hct MCV MCH MCHC RDW Plt Count Lymph % (Auto) [place] % (Auto) Lymph # [place] # Seg Neutrophils % Seg Neuts % (Manual) Lymphocytes % (Manual) Monocytes % (Manual) Nucleated RBC % Seg Neutrophils # Seg Neutrophils # Man Lymphocytes # (Manual) Monocytes # (Manual) PT INR APTT D-Dimer Heparin Anti-Xa Level POC ABG pH POC ABG pCO2 POC ABG pO2 Sodium Potassium Chloride Carbon Dioxide BUN Creatinine Glucose POC Glucose 180 H 189 H Lactic Acid Calcium Phosphorus Total Bilirubin C-Reactive Protein 2.30 H NT-Pro-B Natriuret Pep Total Protein Albumin Urine WBC (Auto) Urine Creatinine 08/04/18 08/04/18 08/04/18 01:58 05:05 05:05 WBC 25.5 H RBC 3.31 L Hgb 10.8 L Hct 34.1 L MCV 103 H MCH 33 H MCHC RDW 16.0 H Plt Count Lymph % (Auto) [place] % (Auto) Lymph # [place] # Seg Neutrophils % Seg Neuts % (Manual) Lymphocytes % (Manual) 8.0 L Monocytes % (Manual) Nucleated RBC % 2.0 H Seg Neutrophils # Seg Neutrophils # Man 16.3 H Lymphocytes # (Manual) Monocytes # (Manual) 1.0 H PT INR APTT D-Dimer Heparin Anti-Xa Level 0.79 H POC ABG pH POC ABG pCO2 POC ABG pO2 Sodium 148 H Potassium Chloride Carbon Dioxide 36 H BUN 35 H Creatinine 0.6 L Glucose 160 H POC Glucose Lactic Acid Calcium Phosphorus Total Bilirubin C-Reactive Protein NT-Pro-B Natriuret Pep Total Protein Albumin Urine WBC (Auto) Urine Creatinine 08/04/18 08/04/18 08/04/18 05:24 05:33 08:46 WBC RBC Hgb Hct MCV MCH MCHC RDW Plt Count Lymph % (Auto) [place] % (Auto) Lymph # [place] # Seg Neutrophils % Seg Neuts % (Manual) Lymphocytes % (Manual) Monocytes % (Manual) Nucleated RBC % Seg Neutrophils # Seg Neutrophils # Man Lymphocytes # (Manual) Monocytes # (Manual) PT INR APTT D-Dimer Heparin Anti-Xa Level 0.76 H POC ABG pH POC ABG pCO2 65.7 H POC ABG pO2 63 L Sodium Potassium Chloride Carbon Dioxide BUN Creatinine Glucose POC Glucose 159 H Lactic Acid Calcium Phosphorus Total Bilirubin C-Reactive Protein NT-Pro-B Natriuret Pep Total Protein Albumin Urine WBC (Auto) Urine Creatinine 08/04/18 08/04/18 08/04/18 09:12 15:38 18:20 WBC RBC Hgb Hct MCV MCH MCHC RDW Plt Count Lymph % (Auto) [place] % (Auto) Lymph # [place] # Seg Neutrophils % Seg Neuts % (Manual) Lymphocytes % (Manual) Monocytes % (Manual) Nucleated RBC % Seg Neutrophils # Seg Neutrophils # Man Lymphocytes # (Manual) Monocytes # (Manual) PT INR APTT D-Dimer Heparin Anti-Xa Level POC ABG pH POC ABG pCO2 POC ABG pO2 Sodium Potassium Chloride Carbon Dioxide BUN Creatinine Glucose POC Glucose 140 H 267 H 252 H Lactic Acid Calcium Phosphorus Total Bilirubin C-Reactive Protein NT-Pro-B Natriuret Pep Total Protein Albumin Urine WBC (Auto) Urine Creatinine 08/04/18 08/05/18 08/05/18 21:17 02:51 04:36 WBC RBC Hgb Hct MCV MCH MCHC RDW Plt Count Lymph % (Auto) [place] % (Auto) Lymph # [place] # Seg Neutrophils % Seg Neuts % (Manual) Lymphocytes % (Manual) Monocytes % (Manual) Nucleated RBC % Seg Neutrophils # Seg Neutrophils # Man Lymphocytes # (Manual) Monocytes # (Manual) PT INR APTT D-Dimer Heparin Anti-Xa Level POC ABG pH POC ABG pCO2 POC ABG pO2 Sodium Potassium Chloride Carbon Dioxide BUN Creatinine Glucose POC Glucose 181 H 240 H 255 H Lactic Acid Calcium Phosphorus Total Bilirubin C-Reactive Protein NT-Pro-B Natriuret Pep Total Protein Albumin Urine WBC (Auto) Urine Creatinine 08/05/18 08/05/18 08/05/18 04:55 10:21 12:39 WBC 21.8 H RBC 3.18 L Hgb 10.3 L Hct 32.6 L MCV 103 H MCH 33 H MCHC RDW 16.3 H Plt Count Lymph % (Auto) [place] % (Auto) Lymph # [place] # Seg Neutrophils % Seg Neuts % (Manual) 88.0 H Lymphocytes % (Manual) 4.0 L Monocytes % (Manual) Nucleated RBC % Seg Neutrophils # Seg Neutrophils # Man 19.2 H Lymphocytes # (Manual) 0.9 L Monocytes # (Manual) PT INR APTT D-Dimer Heparin Anti-Xa Level POC ABG pH 7.506 H POC ABG pCO2 56.0 H POC ABG pO2 63 L Sodium Potassium Chloride Carbon Dioxide BUN Creatinine Glucose POC Glucose 227 H Lactic Acid Calcium Phosphorus Total Bilirubin C-Reactive Protein NT-Pro-B Natriuret Pep Total Protein Albumin Urine WBC (Auto) Urine Creatinine 08/05/18 08/05/18 08/05/18 12:39 14:10 17:30 WBC RBC Hgb Hct MCV MCH MCHC RDW Plt Count Lymph % (Auto) [place] % (Auto) Lymph # [place] # Seg Neutrophils % Seg Neuts % (Manual) Lymphocytes % (Manual) Monocytes % (Manual) Nucleated RBC % Seg Neutrophils # Seg Neutrophils # Man Lymphocytes # (Manual) Monocytes # (Manual) PT INR APTT D-Dimer Heparin Anti-Xa Level < 0.10 L POC ABG pH POC ABG pCO2 POC ABG pO2 Sodium Potassium Chloride 96.8 L Carbon Dioxide 38 H BUN 36 H Creatinine 0.6 L Glucose 218 H POC Glucose 221 H Lactic Acid Calcium Phosphorus Total Bilirubin C-Reactive Protein NT-Pro-B Natriuret Pep Total Protein Albumin Urine WBC (Auto) Urine Creatinine 08/05/18 08/05/18 08/06/18 18:32 23:32 02:26 WBC RBC Hgb Hct MCV MCH MCHC RDW Plt Count Lymph % (Auto) [place] % (Auto) Lymph # [place] # Seg Neutrophils % Seg Neuts % (Manual) Lymphocytes % (Manual) Monocytes % (Manual) Nucleated RBC % Seg Neutrophils # Seg Neutrophils # Man Lymphocytes # (Manual) Monocytes # (Manual) PT INR APTT D-Dimer Heparin Anti-Xa Level POC ABG pH POC ABG pCO2 POC ABG pO2 Sodium Potassium Chloride Carbon Dioxide BUN Creatinine Glucose POC Glucose 253 H 215 H 227 H Lactic Acid Calcium Phosphorus Total Bilirubin C-Reactive Protein NT-Pro-B Natriuret Pep Total Protein Albumin Urine WBC (Auto) Urine Creatinine 08/06/18 08/06/18 08/06/18 05:17 05:17 05:32 WBC 18.9 H RBC 3.06 L Hgb 10.2 L Hct 31.3 L MCV 102 H MCH 33 H MCHC RDW 16.1 H Plt Count Lymph % (Auto) [place] % (Auto) Lymph # [place] # Seg Neutrophils % Seg Neuts % (Manual) Lymphocytes % (Manual) Monocytes % (Manual) Nucleated RBC % Seg Neutrophils # Seg Neutrophils # Man Lymphocytes # (Manual) Monocytes # (Manual) PT INR APTT D-Dimer Heparin Anti-Xa Level POC ABG pH 7.468 H POC ABG pCO2 59.5 H POC ABG pO2 64 L Sodium Potassium Chloride Carbon Dioxide 37 H BUN 37 H Creatinine 0.5 L Glucose 226 H POC Glucose Lactic Acid Calcium Phosphorus Total Bilirubin C-Reactive Protein NT-Pro-B Natriuret Pep Total Protein Albumin Urine WBC (Auto) Urine Creatinine 08/06/18 08/06/18 08/06/18 10:11 15:03 17:48 WBC RBC Hgb Hct MCV MCH MCHC RDW Plt Count Lymph % (Auto) [place] % (Auto) Lymph # [place] # Seg Neutrophils % Seg Neuts % (Manual) Lymphocytes % (Manual) Monocytes % (Manual) Nucleated RBC % Seg Neutrophils # Seg Neutrophils # Man Lymphocytes # (Manual) Monocytes # (Manual) PT INR APTT D-Dimer Heparin Anti-Xa Level POC ABG pH POC ABG pCO2 POC ABG pO2 Sodium Potassium Chloride Carbon Dioxide BUN Creatinine Glucose POC Glucose 207 H 229 H 188 H Lactic Acid Calcium Phosphorus Total Bilirubin C-Reactive Protein NT-Pro-B Natriuret Pep Total Protein Albumin Urine WBC (Auto) Urine Creatinine 08/06/18 08/07/18 08/07/18 22:53 01:55 05:30 WBC RBC Hgb Hct MCV MCH MCHC RDW Plt Count Lymph % (Auto) [place] % (Auto) Lymph # [place] # Seg Neutrophils % Seg Neuts % (Manual) Lymphocytes % (Manual) Monocytes % (Manual) Nucleated RBC % Seg Neutrophils # Seg Neutrophils # Man Lymphocytes # (Manual) Monocytes # (Manual) PT INR APTT D-Dimer Heparin Anti-Xa Level POC ABG pH POC ABG pCO2 69.6 H POC ABG pO2 64 L Sodium Potassium Chloride Carbon Dioxide BUN Creatinine Glucose POC Glucose 146 H 143 H Lactic Acid Calcium Phosphorus Total Bilirubin C-Reactive Protein NT-Pro-B Natriuret Pep Total Protein Albumin Urine WBC (Auto) Urine Creatinine 08/07/18 08/07/18 08/07/18 09:59 14:16 15:08 WBC RBC Hgb 10.3 L Hct 32.2 L MCV MCH MCHC RDW Plt Count Lymph % (Auto) [place] % (Auto) Lymph # [place] # Seg Neutrophils % Seg Neuts % (Manual) Lymphocytes % (Manual) Monocytes % (Manual) Nucleated RBC % Seg Neutrophils # Seg Neutrophils # Man Lymphocytes # (Manual) Monocytes # (Manual) PT INR APTT D-Dimer Heparin Anti-Xa Level POC ABG pH POC ABG pCO2 POC ABG pO2 Sodium Potassium Chloride Carbon Dioxide BUN Creatinine Glucose POC Glucose 188 H 223 H Lactic Acid Calcium Phosphorus Total Bilirubin C-Reactive Protein NT-Pro-B Natriuret Pep Total Protein Albumin Urine WBC (Auto) Urine Creatinine 08/07/18 08/07/18 08/07/18 15:08 17:39 22:04 WBC RBC Hgb Hct MCV MCH MCHC RDW Plt Count Lymph % (Auto) [place] % (Auto) Lymph # [place] # Seg Neutrophils % Seg Neuts % (Manual) Lymphocytes % (Manual) Monocytes % (Manual) Nucleated RBC % Seg Neutrophils # Seg Neutrophils # Man Lymphocytes # (Manual) Monocytes # (Manual) PT INR APTT 23.2 L D-Dimer Heparin Anti-Xa Level POC ABG pH POC ABG pCO2 POC ABG pO2 Sodium Potassium Chloride Carbon Dioxide BUN Creatinine Glucose POC Glucose 208 H 163 H Lactic Acid Calcium Phosphorus Total Bilirubin C-Reactive Protein NT-Pro-B Natriuret Pep Total Protein Albumin Urine WBC (Auto) Urine Creatinine 08/07/18 08/08/18 08/08/18 22:30 01:57 02:09 WBC 14.6 H RBC 2.88 L Hgb 9.5 L Hct 29.9 L MCV 104 H MCH 33 H MCHC RDW 16.8 H Plt Count Lymph % (Auto) [place] % (Auto) Lymph # [place] # Seg Neutrophils % Seg Neuts % (Manual) 73.0 H Lymphocytes % (Manual) 9.0 L Monocytes % (Manual) 10.0 H Nucleated RBC % Seg Neutrophils # Seg Neutrophils # Man 10.7 H Lymphocytes # (Manual) Monocytes # (Manual) 1.5 H PT INR APTT D-Dimer Heparin Anti-Xa Level 0.25 L POC ABG pH POC ABG pCO2 POC ABG pO2 Sodium Potassium Chloride Carbon Dioxide BUN Creatinine Glucose POC Glucose 120 H Lactic Acid Calcium Phosphorus Total Bilirubin C-Reactive Protein NT-Pro-B Natriuret Pep Total Protein Albumin Urine WBC (Auto) Urine Creatinine 08/08/18 08/08/18 08/08/18 02:09 04:58 05:19 WBC RBC Hgb Hct MCV MCH MCHC RDW Plt Count Lymph % (Auto) [place] % (Auto) Lymph # [place] # Seg Neutrophils % Seg Neuts % (Manual) Lymphocytes % (Manual) Monocytes % (Manual) Nucleated RBC % Seg Neutrophils # Seg Neutrophils # Man Lymphocytes # (Manual) Monocytes # (Manual) PT INR APTT D-Dimer Heparin Anti-Xa Level POC ABG pH 7.461 H POC ABG pCO2 57.3 H POC ABG pO2 62 L Sodium Potassium Chloride Carbon Dioxide 39 H BUN 29 H Creatinine 0.5 L Glucose 124 H POC Glucose 139 H Lactic Acid Calcium Phosphorus Total Bilirubin C-Reactive Protein NT-Pro-B Natriuret Pep Total Protein Albumin Urine WBC (Auto) Urine Creatinine 08/08/18 08/08/18 08/08/18 10:22 14:52 16:12 WBC RBC Hgb Hct MCV MCH MCHC RDW Plt Count Lymph % (Auto) [place] % (Auto) Lymph # [place] # Seg Neutrophils % Seg Neuts % (Manual) Lymphocytes % (Manual) Monocytes % (Manual) Nucleated RBC % Seg Neutrophils # Seg Neutrophils # Man Lymphocytes # (Manual) Monocytes # (Manual) PT INR APTT D-Dimer Heparin Anti-Xa Level POC ABG pH POC ABG pCO2 POC ABG pO2 Sodium Potassium Chloride Carbon Dioxide BUN Creatinine Glucose POC Glucose 169 H 149 H 136 H Lactic Acid Calcium Phosphorus Total Bilirubin C-Reactive Protein NT-Pro-B Natriuret Pep Total Protein Albumin Urine WBC (Auto) Urine Creatinine 08/09/18 08/09/18 08/09/18 02:26 03:52 03:52 WBC 15.9 H RBC 2.87 L Hgb 9.6 L Hct 30.7 L MCV 107 H MCH 34 H MCHC 31 L RDW 17.8 H Plt Count Lymph % (Auto) 3.9 L [place] % (Auto) 8.1 H Lymph # 0.6 L [place] # 1.3 H Seg Neutrophils % 87.1 H Seg Neuts % (Manual) Lymphocytes % (Manual) Monocytes % (Manual) Nucleated RBC % Seg Neutrophils # 13.9 H Seg Neutrophils # Man Lymphocytes # (Manual) Monocytes # (Manual) PT INR APTT D-Dimer Heparin Anti-Xa Level 0.25 L POC ABG pH POC ABG pCO2 POC ABG pO2 Sodium Potassium Chloride Carbon Dioxide BUN Creatinine Glucose POC Glucose 126 H Lactic Acid Calcium Phosphorus Total Bilirubin C-Reactive Protein NT-Pro-B Natriuret Pep Total Protein Albumin Urine WBC (Auto) Urine Creatinine 08/09/18 08/09/18 08/09/18 03:52 05:34 06:48 WBC RBC Hgb Hct MCV MCH MCHC RDW Plt Count Lymph % (Auto) [place] % (Auto) Lymph # [place] # Seg Neutrophils % Seg Neuts % (Manual) Lymphocytes % (Manual) Monocytes % (Manual) Nucleated RBC % Seg Neutrophils # Seg Neutrophils # Man Lymphocytes # (Manual) Monocytes # (Manual) PT INR APTT D-Dimer Heparin Anti-Xa Level POC ABG pH POC ABG pCO2 57.5 H POC ABG pO2 58 L Sodium Potassium Chloride Carbon Dioxide 39 H BUN 26 H Creatinine 0.5 L Glucose 128 H POC Glucose 171 H Lactic Acid Calcium Phosphorus Total Bilirubin C-Reactive Protein NT-Pro-B Natriuret Pep Total Protein Albumin Urine WBC (Auto) Urine Creatinine 08/09/18 08/09/18 08/09/18 09:28 09:36 13:44 WBC RBC Hgb Hct MCV MCH MCHC RDW Plt Count Lymph % (Auto) [place] % (Auto) Lymph # [place] # Seg Neutrophils % Seg Neuts % (Manual) Lymphocytes % (Manual) Monocytes % (Manual) Nucleated RBC % Seg Neutrophils # Seg Neutrophils # Man Lymphocytes # (Manual) Monocytes # (Manual) PT INR APTT D-Dimer Heparin Anti-Xa Level 0.26 L POC ABG pH POC ABG pCO2 POC ABG pO2 Sodium Potassium Chloride Carbon Dioxide BUN Creatinine Glucose POC Glucose 183 H 184 H Lactic Acid Calcium Phosphorus Total Bilirubin C-Reactive Protein NT-Pro-B Natriuret Pep Total Protein Albumin Urine WBC (Auto) Urine Creatinine 08/09/18 08/10/18 08/10/18 17:55 04:49 05:20 WBC RBC Hgb Hct MCV MCH MCHC RDW Plt Count Lymph % (Auto) [place] % (Auto) Lymph # [place] # Seg Neutrophils % Seg Neuts % (Manual) Lymphocytes % (Manual) Monocytes % (Manual) Nucleated RBC % Seg Neutrophils # Seg Neutrophils # Man Lymphocytes # (Manual) Monocytes # (Manual) PT INR APTT D-Dimer Heparin Anti-Xa Level POC ABG pH POC ABG pCO2 59.9 H POC ABG pO2 59 L Sodium Potassium Chloride Carbon Dioxide BUN Creatinine Glucose POC Glucose 148 H 59 L Lactic Acid Calcium Phosphorus Total Bilirubin C-Reactive Protein NT-Pro-B Natriuret Pep Total Protein Albumin Urine WBC (Auto) Urine Creatinine 08/10/18 08/10/18 08/10/18 05:53 17:12 21:17 WBC RBC Hgb Hct MCV MCH MCHC RDW Plt Count Lymph % (Auto) [place] % (Auto) Lymph # [place] # Seg Neutrophils % Seg Neuts % (Manual) Lymphocytes % (Manual) Monocytes % (Manual) Nucleated RBC % Seg Neutrophils # Seg Neutrophils # Man Lymphocytes # (Manual) Monocytes # (Manual) PT INR APTT D-Dimer Heparin Anti-Xa Level POC ABG pH POC ABG pCO2 POC ABG pO2 Sodium Potassium Chloride Carbon Dioxide BUN Creatinine Glucose POC Glucose 128 H 110 H 109 H Lactic Acid Calcium Phosphorus Total Bilirubin C-Reactive Protein NT-Pro-B Natriuret Pep Total Protein Albumin Urine WBC (Auto) Urine Creatinine 08/11/18 08/11/18 08/11/18 00:54 02:28 04:17 WBC RBC Hgb 7.8 L Hct 24.1 L D MCV MCH MCHC RDW Plt Count Lymph % (Auto) [place] % (Auto) Lymph # [place] # Seg Neutrophils % Seg Neuts % (Manual) Lymphocytes % (Manual) Monocytes % (Manual) Nucleated RBC % Seg Neutrophils # Seg Neutrophils # Man Lymphocytes # (Manual) Monocytes # (Manual) PT INR APTT D-Dimer Heparin Anti-Xa Level 0.19 L POC ABG pH POC ABG pCO2 POC ABG pO2 Sodium Potassium Chloride Carbon Dioxide BUN Creatinine Glucose POC Glucose 124 H Lactic Acid Calcium Phosphorus Total Bilirubin C-Reactive Protein NT-Pro-B Natriuret Pep Total Protein Albumin Urine WBC (Auto) Urine Creatinine 08/11/18 08/11/18 08/11/18 05:10 07:42 10:27 WBC RBC Hgb Hct MCV MCH MCHC RDW Plt Count Lymph % (Auto) [place] % (Auto) Lymph # [place] # Seg Neutrophils % Seg Neuts % (Manual) Lymphocytes % (Manual) Monocytes % (Manual) Nucleated RBC % Seg Neutrophils # Seg Neutrophils # Man Lymphocytes # (Manual) Monocytes # (Manual) PT INR APTT D-Dimer Heparin Anti-Xa Level 0.20 L POC ABG pH POC ABG pCO2 POC ABG pO2 Sodium Potassium Chloride Carbon Dioxide BUN Creatinine Glucose POC Glucose 150 H 156 H Lactic Acid Calcium Phosphorus Total Bilirubin C-Reactive Protein NT-Pro-B Natriuret Pep Total Protein Albumin Urine WBC (Auto) Urine Creatinine 08/11/18 08/11/18 08/11/18 13:54 15:06 18:13 WBC RBC Hgb Hct MCV MCH MCHC RDW Plt Count Lymph % (Auto) [place] % (Auto) Lymph # [place] # Seg Neutrophils % Seg Neuts % (Manual) Lymphocytes % (Manual) Monocytes % (Manual) Nucleated RBC % Seg Neutrophils # Seg Neutrophils # Man Lymphocytes # (Manual) Monocytes # (Manual) PT INR APTT D-Dimer Heparin Anti-Xa Level POC ABG pH 7.471 H POC ABG pCO2 45.5 H POC ABG pO2 79 L Sodium Potassium Chloride Carbon Dioxide BUN Creatinine Glucose POC Glucose 177 H 143 H Lactic Acid Calcium Phosphorus Total Bilirubin C-Reactive Protein NT-Pro-B Natriuret Pep Total Protein Albumin Urine WBC (Auto) Urine Creatinine 08/11/18 08/11/18 08/11/18 18:33 21:22 Unknown WBC RBC Hgb Hct MCV MCH MCHC RDW Plt Count Lymph % (Auto) [place] % (Auto) Lymph # [place] # Seg Neutrophils % Seg Neuts % (Manual) Lymphocytes % (Manual) Monocytes % (Manual) Nucleated RBC % Seg Neutrophils # Seg Neutrophils # Man Lymphocytes # (Manual) Monocytes # (Manual) PT INR APTT D-Dimer Heparin Anti-Xa Level 0.29 L POC ABG pH POC ABG pCO2 POC ABG pO2 Sodium 136 L Potassium Chloride 96.5 L Carbon Dioxide 32 H D BUN Creatinine 0.5 L Glucose 186 H POC Glucose 151 H Lactic Acid Calcium Phosphorus Total Bilirubin C-Reactive Protein NT-Pro-B Natriuret Pep Total Protein Albumin Urine WBC (Auto) Urine Creatinine 08/11/18 08/12/18 08/12/18 Unknown 02:09 05:29 WBC 12.1 H RBC 2.50 L Hgb 8.2 L Hct 25.7 L MCV 103 H MCH 33 H MCHC RDW 17.0 H Plt Count Lymph % (Auto) 5.1 L [place] % (Auto) 9.5 H Lymph # 0.6 L [place] # 1.2 H Seg Neutrophils % 84.8 H Seg Neuts % (Manual) Lymphocytes % (Manual) Monocytes % (Manual) Nucleated RBC % Seg Neutrophils # 10.3 H Seg Neutrophils # Man Lymphocytes # (Manual) Monocytes # (Manual) PT INR APTT D-Dimer Heparin Anti-Xa Level POC ABG pH POC ABG pCO2 POC ABG pO2 Sodium Potassium Chloride Carbon Dioxide BUN Creatinine Glucose POC Glucose 159 H 136 H Lactic Acid Calcium Phosphorus Total Bilirubin C-Reactive Protein NT-Pro-B Natriuret Pep Total Protein Albumin Urine WBC (Auto) Urine Creatinine 08/12/18 08/12/18 08/12/18 07:33 09:59 13:59 WBC RBC Hgb Hct MCV MCH MCHC RDW Plt Count Lymph % (Auto) [place] % (Auto) Lymph # [place] # Seg Neutrophils % Seg Neuts % (Manual) Lymphocytes % (Manual) Monocytes % (Manual) Nucleated RBC % Seg Neutrophils # Seg Neutrophils # Man Lymphocytes # (Manual) Monocytes # (Manual) PT INR APTT D-Dimer Heparin Anti-Xa Level POC ABG pH POC ABG pCO2 POC ABG pO2 Sodium Potassium Chloride Carbon Dioxide BUN Creatinine Glucose POC Glucose 138 H 157 H 167 H Lactic Acid Calcium Phosphorus Total Bilirubin C-Reactive Protein NT-Pro-B Natriuret Pep Total Protein Albumin Urine WBC (Auto) Urine Creatinine 08/12/18 08/12/18 08/12/18 14:31 14:56 17:39 WBC RBC Hgb Hct MCV MCH MCHC RDW Plt Count Lymph % (Auto) [place] % (Auto) Lymph # [place] # Seg Neutrophils % Seg Neuts % (Manual) Lymphocytes % (Manual) Monocytes % (Manual) Nucleated RBC % Seg Neutrophils # Seg Neutrophils # Man Lymphocytes # (Manual) Monocytes # (Manual) PT INR APTT D-Dimer Heparin Anti-Xa Level 1.18 H POC ABG pH 7.466 H POC ABG pCO2 POC ABG pO2 58 L Sodium Potassium Chloride Carbon Dioxide BUN Creatinine Glucose POC Glucose 168 H Lactic Acid Calcium Phosphorus Total Bilirubin C-Reactive Protein NT-Pro-B Natriuret Pep Total Protein Albumin Urine WBC (Auto) Urine Creatinine 08/12/18 08/13/18 08/13/18 21:38 02:17 05:20 WBC RBC Hgb 8.0 L Hct 24.5 L MCV MCH MCHC RDW Plt Count Lymph % (Auto) [place] % (Auto) Lymph # [place] # Seg Neutrophils % Seg Neuts % (Manual) Lymphocytes % (Manual) Monocytes % (Manual) Nucleated RBC % Seg Neutrophils # Seg Neutrophils # Man Lymphocytes # (Manual) Monocytes # (Manual) PT INR APTT D-Dimer Heparin Anti-Xa Level POC ABG pH POC ABG pCO2 POC ABG pO2 Sodium Potassium Chloride Carbon Dioxide BUN Creatinine Glucose POC Glucose 168 H 157 H Lactic Acid Calcium Phosphorus Total Bilirubin C-Reactive Protein NT-Pro-B Natriuret Pep Total Protein Albumin Urine WBC (Auto) Urine Creatinine 08/13/18 08/13/1808/13/18 09:28 10:07 14:09 WBC RBC Hgb Hct MCV MCH MCHC RDW Plt Count Lymph % (Auto) [place] % (Auto) Lymph # [place] # Seg Neutrophils % Seg Neuts % (Manual) Lymphocytes % (Manual) Monocytes % (Manual) Nucleated RBC % Seg Neutrophils # Seg Neutrophils # Man Lymphocytes # (Manual) Monocytes # (Manual) PT INR APTT D-Dimer Heparin Anti-Xa Level POC ABG pH 7.453 H POC ABG pCO2 47.5 H POC ABG pO2 Sodium Potassium Chloride Carbon Dioxide BUN Creatinine Glucose POC Glucose 177 H 178 H Lactic Acid Calcium Phosphorus Total Bilirubin C-Reactive Protein NT-Pro-B Natriuret Pep Total Protein Albumin Urine WBC (Auto) Urine Creatinine 08/13/18 08/13/18 08/14/18 17:33 21:28 01:58 WBC RBC Hgb Hct MCV MCH MCHC RDW Plt Count Lymph % (Auto) [place] % (Auto) Lymph # [place] # Seg Neutrophils % Seg Neuts % (Manual) Lymphocytes % (Manual) Monocytes % (Manual) Nucleated RBC % Seg Neutrophils # Seg Neutrophils # Man Lymphocytes # (Manual) Monocytes # (Manual) PT INR APTT D-Dimer Heparin Anti-Xa Level POC ABG pH POC ABG pCO2 POC ABG pO2 Sodium Potassium Chloride Carbon Dioxide BUN Creatinine Glucose POC Glucose 130 H 145 H 161 H Lactic Acid Calcium Phosphorus Total Bilirubin C-Reactive Protein NT-Pro-B Natriuret Pep Total Protein Albumin Urine WBC (Auto) Urine Creatinine 08/14/18 08/14/18 08/14/18 05:22 06:10 09:59 WBC RBC Hgb Hct MCV MCH MCHC RDW Plt Count Lymph % (Auto) [place] % (Auto) Lymph # [place] # Seg Neutrophils % Seg Neuts % (Manual) Lymphocytes % (Manual) Monocytes % (Manual) Nucleated RBC % Seg Neutrophils # Seg Neutrophils # Man Lymphocytes # (Manual) Monocytes # (Manual) PT INR APTT D-Dimer Heparin Anti-Xa Level POC ABG pH POC ABG pCO2 POC ABG pO2 Sodium Potassium Chloride Carbon Dioxide BUN Creatinine 0.5 L Glucose 125 H POC Glucose 117 H 107 H Lactic Acid Calcium Phosphorus Total Bilirubin C-Reactive Protein NT-Pro-B Natriuret Pep Total Protein Albumin Urine WBC (Auto) Urine Creatinine 08/14/18 08/14/18 08/14/18 14:04 17:49 21:27 WBC RBC Hgb Hct MCV MCH MCHC RDW Plt Count Lymph % (Auto) [place] % (Auto) Lymph # [place] # Seg Neutrophils % Seg Neuts % (Manual) Lymphocytes % (Manual) Monocytes % (Manual) Nucleated RBC % Seg Neutrophils # Seg Neutrophils # Man Lymphocytes # (Manual) Monocytes # (Manual) PT INR APTT D-Dimer Heparin Anti-Xa Level POC ABG pH POC ABG pCO2 POC ABG pO2 Sodium Potassium Chloride Carbon Dioxide BUN Creatinine Glucose POC Glucose 137 H 150 H 149 H Lactic Acid Calcium Phosphorus Total Bilirubin C-Reactive Protein NT-Pro-B Natriuret Pep Total Protein Albumin Urine WBC (Auto) Urine Creatinine 08/14/18 08/15/18 08/15/18 21:55 01:50 03:12 WBC 13.3 H RBC 2.79 L Hgb 9.3 L 8.4 L Hct 28.6 L 25.7 L MCV 102 H MCH 33 H MCHC RDW 16.6 H Plt Count Lymph % (Auto) [place] % (Auto) Lymph # [place] # Seg Neutrophils % Seg Neuts % (Manual) Lymphocytes % (Manual) Monocytes % (Manual) Nucleated RBC % Seg Neutrophils # Seg Neutrophils # Man Lymphocytes # (Manual) Monocytes # (Manual) PT INR APTT D-Dimer Heparin Anti-Xa Level POC ABG pH POC ABG pCO2 POC ABG pO2 Sodium Potassium Chloride Carbon Dioxide BUN Creatinine Glucose POC Glucose 186 H Lactic Acid Calcium Phosphorus Total Bilirubin C-Reactive Protein NT-Pro-B Natriuret Pep Total Protein Albumin Urine WBC (Auto) Urine Creatinine 08/15/18 08/15/18 08/15/18 09:55 11:45 13:47 WBC RBC 2.38 L Hgb 8.0 L Hct 24.5 L MCV 103 H MCH 34 H MCHC RDW 16.8 H Plt Count Lymph % (Auto) 4.9 L [place] % (Auto) Lymph # 0.5 L [place] # Seg Neutrophils % 88.1 H Seg Neuts % (Manual) Lymphocytes % (Manual) Monocytes % (Manual) Nucleated RBC % Seg Neutrophils # 9.6 H Seg Neutrophils # Man Lymphocytes # (Manual) Monocytes # (Manual) PT INR APTT D-Dimer Heparin Anti-Xa Level POC ABG pH POC ABG pCO2 POC ABG pO2 Sodium Potassium Chloride Carbon Dioxide BUN Creatinine Glucose POC Glucose 133 H 142 H Lactic Acid Calcium Phosphorus Total Bilirubin C-Reactive Protein NT-Pro-B Natriuret Pep Total Protein Albumin Urine WBC (Auto) Urine Creatinine 08/15/18 08/15/18 08/16/18 17:54 21:58 02:20 WBC RBC Hgb Hct MCV MCH MCHC RDW Plt Count Lymph % (Auto) [place] % (Auto) Lymph # [place] # Seg Neutrophils % Seg Neuts % (Manual) Lymphocytes % (Manual) Monocytes % (Manual) Nucleated RBC % Seg Neutrophils # Seg Neutrophils # Man Lymphocytes # (Manual) Monocytes # (Manual) PT INR APTT D-Dimer Heparin Anti-Xa Level POC ABG pH POC ABG pCO2 POC ABG pO2 Sodium Potassium Chloride Carbon Dioxide BUN Creatinine Glucose POC Glucose 131 H 157 H 108 H Lactic Acid Calcium Phosphorus Total Bilirubin C-Reactive Protein NT-Pro-B Natriuret Pep Total Protein Albumin Urine WBC (Auto) Urine Creatinine 08/16/18 08/16/18 08/16/18 05:16 10:20 10:23 WBC RBC Hgb Hct MCV MCH MCHC RDW Plt Count Lymph % (Auto) [place] % (Auto) Lymph # [place] # Seg Neutrophils % Seg Neuts % (Manual) Lymphocytes % (Manual) Monocytes % (Manual) Nucleated RBC % Seg Neutrophils # Seg Neutrophils # Man Lymphocytes # (Manual) Monocytes # (Manual) PT INR APTT D-Dimer Heparin Anti-Xa Level POC ABG pH POC ABG pCO2 POC ABG pO2 63 L Sodium Potassium Chloride Carbon Dioxide BUN Creatinine Glucose POC Glucose 115 H 146 H Lactic Acid Calcium Phosphorus Total Bilirubin C-Reactive Protein NT-Pro-B Natriuret Pep Total Protein Albumin Urine WBC (Auto) Urine Creatinine 08/16/18 08/16/18 08/16/18 11:06 14:05 18:04 WBC RBC 2.82 L Hgb 9.2 L Hct 28.8 L MCV 102 H MCH 33 H MCHC RDW 16.4 H Plt Count Lymph % (Auto) 3.8 L [place] % (Auto) Lymph # 0.4 L [place] # Seg Neutrophils % 89.5 H Seg Neuts % (Manual) Lymphocytes % (Manual) Monocytes % (Manual) Nucleated RBC % Seg Neutrophils # 9.1 H Seg Neutrophils # Man Lymphocytes # (Manual) Monocytes # (Manual) PT INR APTT D-Dimer Heparin Anti-Xa Level POC ABG pH POC ABG pCO2 POC ABG pO2 Sodium Potassium Chloride Carbon Dioxide BUN Creatinine Glucose POC Glucose 139 H 144 H Lactic Acid Calcium Phosphorus Total Bilirubin C-Reactive Protein NT-Pro-B Natriuret Pep Total Protein Albumin Urine WBC (Auto) Urine Creatinine 08/16/18 08/17/18 08/17/18 21:50 03:51 04:59 WBC RBC Hgb Hct MCV MCH MCHC RDW Plt Count Lymph % (Auto) [place] % (Auto) Lymph # [place] # Seg Neutrophils % Seg Neuts % (Manual) Lymphocytes % (Manual) Monocytes % (Manual) Nucleated RBC % Seg Neutrophils # Seg Neutrophils # Man Lymphocytes # (Manual) Monocytes # (Manual) PT INR APTT D-Dimer Heparin Anti-Xa Level POC ABG pH POC ABG pCO2 POC ABG pO2 Sodium Potassium Chloride Carbon Dioxide BUN Creatinine 0.5 L Glucose 134 H POC Glucose 147 H 135 H Lactic Acid Calcium Phosphorus Total Bilirubin C-Reactive Protein NT-Pro-B Natriuret Pep Total Protein Albumin Urine WBC (Auto) Urine Creatinine 08/17/18 08/17/18 08/17/18 12:07 18:04 21:38 WBC RBC Hgb Hct MCV MCH MCHC RDW Plt Count Lymph % (Auto) [place] % (Auto) Lymph # [place] # Seg Neutrophils % Seg Neuts % (Manual) Lymphocytes % (Manual) Monocytes % (Manual) Nucleated RBC % Seg Neutrophils # Seg Neutrophils # Man Lymphocytes # (Manual) Monocytes # (Manual) PT INR APTT D-Dimer Heparin Anti-Xa Level POC ABG pH POC ABG pCO2 55.6 H POC ABG pO2 65 L Sodium Potassium Chloride Carbon Dioxide BUN Creatinine Glucose POC Glucose 160 H 115 H Lactic Acid Calcium Phosphorus Total Bilirubin C-Reactive Protein NT-Pro-B Natriuret Pep Total Protein Albumin Urine WBC (Auto) Urine Creatinine 08/17/18 08/18/18 08/18/18 21:47 01:42 05:42 WBC RBC Hgb Hct MCV MCH MCHC RDW Plt Count Lymph % (Auto) [place] % (Auto) Lymph # [place] # Seg Neutrophils % Seg Neuts % (Manual) Lymphocytes % (Manual) Monocytes % (Manual) Nucleated RBC % Seg Neutrophils # Seg Neutrophils # Man Lymphocytes # (Manual) Monocytes # (Manual) PT INR APTT D-Dimer Heparin Anti-Xa Level POC ABG pH POC ABG pCO2 POC ABG pO2 Sodium Potassium Chloride Carbon Dioxide BUN Creatinine Glucose POC Glucose 110 H 124 H 127 H Lactic Acid Calcium Phosphorus Total Bilirubin C-Reactive Protein NT-Pro-B Natriuret Pep Total Protein Albumin Urine WBC (Auto) Urine Creatinine 08/18/18 08/18/18 08/18/18 09:51 14:37 21:37 WBC RBC Hgb Hct MCV MCH MCHC RDW Plt Count Lymph % (Auto) [place] % (Auto) Lymph # [place] # Seg Neutrophils % Seg Neuts % (Manual) Lymphocytes % (Manual) Monocytes % (Manual) Nucleated RBC % Seg Neutrophils # Seg Neutrophils # Man Lymphocytes # (Manual) Monocytes # (Manual) PT INR APTT D-Dimer Heparin Anti-Xa Level POC ABG pH POC ABG pCO2 POC ABG pO2 Sodium Potassium Chloride Carbon Dioxide BUN Creatinine Glucose POC Glucose 162 H 130 H 133 H Lactic Acid Calcium Phosphorus Total Bilirubin C-Reactive Protein NT-Pro-B Natriuret Pep Total Protein Albumin Urine WBC (Auto) Urine Creatinine 08/19/18 08/19/18 08/19/18 01:47 04:55 04:55 WBC RBC 2.86 L Hgb 9.4 L Hct 28.6 L MCV 100 H MCH 33 H MCHC RDW 16.6 H Plt Count Lymph % (Auto) [place] % (Auto) Lymph # [place] # Seg Neutrophils % Seg Neuts % (Manual) Lymphocytes % (Manual) Monocytes % (Manual) Nucleated RBC % Seg Neutrophils # Seg Neutrophils # Man Lymphocytes # (Manual) Monocytes # (Manual) PT INR APTT D-Dimer Heparin Anti-Xa Level POC ABG pH POC ABG pCO2 POC ABG pO2 Sodium Potassium Chloride 97.8 L Carbon Dioxide 32 H BUN Creatinine 0.4 L Glucose 116 H POC Glucose 136 H Lactic Acid Calcium Phosphorus Total Bilirubin C-Reactive Protein NT-Pro-B Natriuret Pep Total Protein Albumin Urine WBC (Auto) Urine Creatinine 08/19/18 08/19/18 08/19/18 05:16 05:41 11:49 WBC RBC Hgb Hct MCV MCH MCHC RDW Plt Count Lymph % (Auto) [place] % (Auto) Lymph # [place] # Seg Neutrophils % Seg Neuts % (Manual) Lymphocytes % (Manual) Monocytes % (Manual) Nucleated RBC % Seg Neutrophils # Seg Neutrophils # Man Lymphocytes # (Manual) Monocytes # (Manual) PT INR APTT D-Dimer Heparin Anti-Xa Level POC ABG pH POC ABG pCO2 57.5 H POC ABG pO2 65 L Sodium Potassium Chloride Carbon Dioxide BUN Creatinine Glucose POC Glucose 119 H 143 H Lactic Acid Calcium Phosphorus Total Bilirubin C-Reactive Protein NT-Pro-B Natriuret Pep Total Protein Albumin Urine WBC (Auto) Urine Creatinine 08/19/18 08/19/18 08/20/18 15:13 21:45 06:03 WBC RBC Hgb Hct MCV MCH MCHC RDW Plt Count Lymph % (Auto) [place] % (Auto) Lymph # [place] # Seg Neutrophils % Seg Neuts % (Manual) Lymphocytes % (Manual) Monocytes % (Manual) Nucleated RBC % Seg Neutrophils # Seg Neutrophils # Man Lymphocytes # (Manual) Monocytes # (Manual) PT INR APTT D-Dimer Heparin Anti-Xa Level POC ABG pH POC ABG pCO2 POC ABG pO2 Sodium Potassium Chloride Carbon Dioxide BUN Creatinine Glucose POC Glucose 155 H 127 H 160 H Lactic Acid Calcium Phosphorus Total Bilirubin C-Reactive Protein NT-Pro-B Natriuret Pep Total Protein Albumin Urine WBC (Auto) Urine Creatinine 08/20/18 08/20/18 08/21/18 12:00 22:10 05:32 WBC RBC Hgb Hct MCV MCH MCHC RDW Plt Count Lymph % (Auto) [place] % (Auto) Lymph # [place] # Seg Neutrophils % Seg Neuts % (Manual) Lymphocytes % (Manual) Monocytes % (Manual) Nucleated RBC % Seg Neutrophils # Seg Neutrophils # Man Lymphocytes # (Manual) Monocytes # (Manual) PT INR APTT D-Dimer Heparin Anti-Xa Level POC ABG pH POC ABG pCO2 POC ABG pO2 Sodium Potassium Chloride Carbon Dioxide BUN Creatinine Glucose POC Glucose 143 H 125 H 121 H Lactic Acid Calcium Phosphorus Total Bilirubin C-Reactive Protein NT-Pro-B Natriuret Pep Total Protein Albumin Urine WBC (Auto) Urine Creatinine 08/21/18 08/21/18 08/22/18 17:37 22:19 05:30 WBC RBC Hgb Hct MCV MCH MCHC RDW Plt Count Lymph % (Auto) [place] % (Auto) Lymph # [place] # Seg Neutrophils % Seg Neuts % (Manual) Lymphocytes % (Manual) Monocytes % (Manual) Nucleated RBC % Seg Neutrophils # Seg Neutrophils # Man Lymphocytes # (Manual) Monocytes # (Manual) PT INR APTT D-Dimer Heparin Anti-Xa Level POC ABG pH POC ABG pCO2 POC ABG pO2 Sodium Potassium Chloride Carbon Dioxide BUN Creatinine Glucose POC Glucose 126 H 129 H 147 H Lactic Acid Calcium Phosphorus Total Bilirubin C-Reactive Protein NT-Pro-B Natriuret Pep Total Protein Albumin Urine WBC (Auto) Urine Creatinine 08/22/18 08/22/18 08/23/18 16:22 21:31 04:37 WBC RBC Hgb Hct MCV MCH MCHC RDW Plt Count Lymph % (Auto) [place] % (Auto) Lymph # [place] # Seg Neutrophils % Seg Neuts % (Manual) Lymphocytes % (Manual) Monocytes % (Manual) Nucleated RBC % Seg Neutrophils # Seg Neutrophils # Man Lymphocytes # (Manual) Monocytes # (Manual) PT INR APTT D-Dimer Heparin Anti-Xa Level POC ABG pH POC ABG pCO2 POC ABG pO2 Sodium Potassium Chloride Carbon Dioxide BUN Creatinine 0.5 L Glucose 141 H POC Glucose 141 H 107 H Lactic Acid Calcium Phosphorus Total Bilirubin C-Reactive Protein NT-Pro-B Natriuret Pep Total Protein Albumin Urine WBC (Auto) Urine Creatinine 08/23/18 08/24/18 08/24/18 04:37 05:31 13:56 WBC RBC 2.94 L Hgb 9.7 L Hct 30.0 L MCV 102 H MCH 33 H MCHC RDW 17.0 H Plt Count 509 H Lymph % (Auto) [place] % (Auto) Lymph # [place] # Seg Neutrophils % Seg Neuts % (Manual) Lymphocytes % (Manual) Monocytes % (Manual) Nucleated RBC % Seg Neutrophils # Seg Neutrophils # Man Lymphocytes # (Manual) Monocytes # (Manual) PT INR APTT D-Dimer Heparin Anti-Xa Level POC ABG pH POC ABG pCO2 POC ABG pO2 Sodium Potassium Chloride Carbon Dioxide BUN Creatinine Glucose POC Glucose 136 H 143 H Lactic Acid Calcium Phosphorus Total Bilirubin C-Reactive Protein NT-Pro-B Natriuret Pep Total Protein Albumin Urine WBC (Auto) Urine Creatinine 08/24/18 08/25/18 08/26/18 21:42 06:35 07:59 WBC RBC Hgb Hct MCV MCH MCHC RDW Plt Count Lymph % (Auto) [place] % (Auto) Lymph # [place] # Seg Neutrophils % Seg Neuts % (Manual) Lymphocytes % (Manual) Monocytes % (Manual) Nucleated RBC % Seg Neutrophils # Seg Neutrophils # Man Lymphocytes # (Manual) Monocytes # (Manual) PT INR APTT D-Dimer Heparin Anti-Xa Level POC ABG pH POC ABG pCO2 POC ABG pO2 Sodium Potassium Chloride Carbon Dioxide BUN Creatinine Glucose POC Glucose 107 H 119 H 125 H Lactic Acid Calcium Phosphorus Total Bilirubin C-Reactive Protein NT-Pro-B Natriuret Pep Total Protein Albumin Urine WBC (Auto) Urine Creatinine 08/26/18 08/26/18 08/26/18 12:23 17:06 21:26 WBC RBC Hgb Hct MCV MCH MCHC RDW Plt Count Lymph % (Auto) [place] % (Auto) Lymph # [place] # Seg Neutrophils % Seg Neuts % (Manual) Lymphocytes % (Manual) Monocytes % (Manual) Nucleated RBC % Seg Neutrophils # Seg Neutrophils # Man Lymphocytes # (Manual) Monocytes # (Manual) PT INR APTT D-Dimer Heparin Anti-Xa Level POC ABG pH POC ABG pCO2 POC ABG pO2 Sodium Potassium Chloride Carbon Dioxide BUN Creatinine Glucose POC Glucose 126 H 123 H 112 H Lactic Acid Calcium Phosphorus Total Bilirubin C-Reactive Protein NT-Pro-B Natriuret Pep Total Protein Albumin Urine WBC (Auto) Urine Creatinine 08/27/18 08/27/18 08/27/18 07:38 15:29 21:17 WBC RBC Hgb Hct MCV MCH MCHC RDW Plt Count Lymph % (Auto) [place] % (Auto) Lymph # [place] # Seg Neutrophils % Seg Neuts % (Manual) Lymphocytes % (Manual) Monocytes % (Manual) Nucleated RBC % Seg Neutrophils # Seg Neutrophils # Man Lymphocytes # (Manual) Monocytes # (Manual) PT INR APTT D-Dimer Heparin Anti-Xa Level POC ABG pH POC ABG pCO2 POC ABG pO2 Sodium Potassium Chloride Carbon Dioxide BUN Creatinine Glucose POC Glucose 162 H 141 H 125 H Lactic Acid Calcium Phosphorus Total Bilirubin C-Reactive Protein NT-Pro-B Natriuret Pep Total Protein Albumin Urine WBC (Auto) Urine Creatinine 08/28/18 08/28/18 08/28/18 05:56 14:05 21:47 WBC RBC Hgb Hct MCV MCH MCHC RDW Plt Count Lymph % (Auto) [place] % (Auto) Lymph # [place] # Seg Neutrophils % Seg Neuts % (Manual) Lymphocytes % (Manual) Monocytes % (Manual) Nucleated RBC % Seg Neutrophils # Seg Neutrophils # Man Lymphocytes # (Manual) Monocytes # (Manual) PT INR APTT D-Dimer Heparin Anti-Xa Level POC ABG pH POC ABG pCO2 POC ABG pO2 Sodium Potassium Chloride Carbon Dioxide BUN Creatinine Glucose POC Glucose 130 H 117 H 112 H Lactic Acid Calcium Phosphorus Total Bilirubin C-Reactive Protein NT-Pro-B Natriuret Pep Total Protein Albumin Urine WBC (Auto) Urine Creatinine 08/29/18 12:04 WBC RBC Hgb Hct MCV MCH MCHC RDW Plt Count Lymph % (Auto) [place] % (Auto) Lymph # [place] # Seg Neutrophils % Seg Neuts % (Manual) Lymphocytes % (Manual) Monocytes % (Manual) Nucleated RBC % Seg Neutrophils # Seg Neutrophils # Man Lymphocytes # (Manual) Monocytes # (Manual) PT INR APTT D-Dimer Heparin Anti-Xa Level POC ABG pH POC ABG pCO2 POC ABG pO2 Sodium Potassium Chloride Carbon Dioxide BUN Creatinine Glucose POC Glucose 160 H Lactic Acid Calcium Phosphorus Total Bilirubin C-Reactive Protein NT-Pro-B Natriuret Pep Total Protein Albumin Urine WBC (Auto) Urine Creatinine Allied health notes reviewed: nursing
[2018-08-29] MEDS: LANTUS SUB-Q SCH (21:42)
[2018-08-30] MEDS: HumaLOG SUB-Q SCH ×2 (07:26→14:47)
[2018-08-30] MEDS: PULMICORT IH SCH (08:50)
[2018-08-30] MEDS: BROVANA NEBU IH SCH (08:50)
[2018-08-30] MEDS: CORDARONE PO SCH (11:00)
[2018-08-30] MEDS: PEPCID PO SCH (11:00)
[2018-08-30] MEDS: VITAMIN B-12 PO SCH (11:00)
[2018-08-30] MEDS: PRAVACHOL PO SCH (11:00)
[2018-08-30] MEDS: SODIUM CHLORIDE FLUSH SYRINGE 10 ML IV SCH (11:01)
[2018-08-30] MEDS: ELIQUIS PO SCH (11:01)
--- NOTE | 2018-08-30 11:54 | Progress Note ---
Assessment and Plan Assessment and plan: patient is 73 yo with H/O COPD, PVD, HTN, HLD, Seizure Disorder, Skin Cancer presented with chest pain, shortness of breath. -He presented in A. fib with RVR, he was medically managed and transitioned from IV to oral medications -The patient suffered respiratory failure for which she was on the ventilator which required prolonged weaning, therefore trach and PEG was placed on 08/11/19. The patient is currently on Trache collar with FiO2 of 50% , oxygen is being weaned -The patient completed a course of antibiotics for treatment of bacteremia due to Streptococcus anginosus -He was medically treated for acute renal failure with IV fluids and that has now resolved -The patient also suffers a urethral stricture with obstruction and therefore we received a Osborne cath that was placed by urology which is not to be removed -He was medically treated for COPD exacerbation, and medications were optimized for his chronic conditions -The patient's is currently awaiting Acute rehab placement in IRU on 3rd floor Diagnosis Septicemia Streptococcus anginous is bacteremia Left lower lobe pneumonia Acute hypoxia was a failure on mechanical ventilator greater than 96 hours Atrial fibrillation with RVR Acute renal failure due to vasomotor nephropathy, Hematuria/Urethral stricture. COPD exacerbation. Hypertension. Hyperlipidemia. Peripheral vascular disease. Disposition.Plan is acute rehab placement, auth in progress History Interval history: Review of systems Constitutional: No fevers, no malaise, no joint pains CVS: No chest pain, no orthopnea, no dyspnea on exertion, no pedal edema GI: No abdominal pain, no diarrhea, no vomiting, no constipation Respiratory: No shortness of breath, no wheezing, no coughing Hospitalist Physical - Physical exam Narrative exam: General.: Appears well, no distress, nontoxic HEENT: Tracheostomy in place Neck: supple Cardiac: S1-S2 heard Lungs: clear to auscultation bilaterally Abdomen: soft , nontender, nondistended, bowel sounds positive Extremities: no edema clubbing or cyanosis Skin: no rash or lesions Neurologic: no gross focal deficits Psych: calm, and cooperative - Constitutional Vitals: Temp Pulse Resp BP Pulse Ox 99.5 F 73 20 129/73 92 08/30/18 05:51 08/30/18 09:06 08/30/18 09:06 08/30/18 05:51 08/30/18 09:08 General appearance: Present: other (intubated on mechanical ventilation) Results - Labs CBC & Chem 7: 08/23/18 04:37 08/23/18 04:37 Labs: Laboratory Last Values WBC 9.3 K/mm3 (4.5-11.0) 08/23/18 04:37 RBC 2.94 M/mm3 (3.65-5.03) L 08/23/18 04:37 Hgb 9.7 gm/dl (11.8-15.2) L 08/23/18 04:37 Hct 30.0 % (35.5-45.6) L 08/23/18 04:37 MCV 102 fl (84-94) H 08/23/18 04:37 MCH 33 pg (28-32) H 08/23/18 04:37 MCHC 33 % (32-34) 08/23/18 04:37 RDW 17.0 % (13.2-15.2) H 08/23/18 04:37 Plt Count 509 K/mm3 (140-440) H 08/23/18 04:37 Lymph % (Auto) 3.8 % (13.4-35.0) L 08/16/18 11:06 [place] % (Auto) 5.7 % (0.0-7.3) 08/16/18 11:06 Eos % (Auto) 0.6 % (0.0-4.3) 08/16/18 11:06 Baso % (Auto) 0.4 % (0.0-1.8) 08/16/18 11:06 Lymph # 0.4 K/mm3 (1.2-5.4) L 08/16/18 11:06 [place] # 0.6 K/mm3 (0.0-0.8) 08/16/18 11:06 Eos # 0.1 K/mm3 (0.0-0.4) 08/16/18 11:06 Baso # 0.0 K/mm3 (0.0-0.1) 08/16/18 11:06 Add Manual Diff Complete 08/08/18 02:09 Total Counted 100 08/08/18 02:09 Seg Neutrophils % 89.5 % (40.0-70.0) H 08/16/18 11:06 Seg Neuts % (Manual) 73.0 % (40.0-70.0) H 08/08/18 02:09 Band Neutrophils % 5.0 % 08/08/18 02:09 Lymphocytes % (Manual) 9.0 % (13.4-35.0) L 08/08/18 02:09 Reactive Lymphs % (Man) 0 % 08/08/18 02:09 Monocytes % (Manual) 10.0 % (0.0-7.3) H 08/08/18 02:09 Eosinophils % (Manual) 0 % (0.0-4.3) 08/08/18 02:09 Basophils % (Manual) 0 % (0.0-1.8) 08/08/18 02:09 Metamyelocytes % 3.0 % 08/08/18 02:09 Myelocytes % 0 % 08/08/18 02:09 Promyelocytes % 0 % 08/08/18 02:09 Blast Cells % 0 % 08/08/18 02:09 Nucleated RBC % Not Reportable 08/08/18 02:09 Seg Neutrophils # 9.1 K/mm3 (1.8-7.7) H 08/16/18 11:06 Seg Neutrophils # Man 10.7 K/mm3 (1.8-7.7) H 08/08/18 02:09 Band Neutrophils # 0.7 K/mm3 08/08/18 02:09 Lymphocytes # (Manual) 1.3 K/mm3 (1.2-5.4) 08/08/18 02:09 Abs React Lymphs (Man) 0.0 K/mm3 08/08/18 02:09 Monocytes # (Manual) 1.5 K/mm3 (0.0-0.8) H 08/08/18 02:09 Eosinophils # (Manual) 0.0 K/mm3 (0.0-0.4) 08/08/18 02:09 Basophils # (Manual) 0.0 K/mm3 (0.0-0.1) 08/08/18 02:09 Metamyelocytes # 0.4 K/mm3 08/08/18 02:09 Myelocytes # 0.0 K/mm3 08/08/18 02:09 Promyelocytes # 0.0 K/mm3 08/08/18 02:09 Blast Cells # 0.0 K/mm3 08/08/18 02:09 Pathologist Review 07/28/18 06:01 WBC Morphology Not Reportable 08/08/18 02:09 Hypersegmented Neuts Not Reportable 08/08/18 02:09 Hyposegmented Neuts Not Reportable 08/08/18 02:09 Hypogranular Neuts Not Reportable 08/08/18 02:09 Smudge Cells Not Reportable 08/08/18 02:09 Toxic Granulation Not Reportable 08/08/18 02:09 Toxic Vacuolation Not Reportable 08/08/18 02:09 Dohle Bodies Not Reportable 08/08/18 02:09 Pelger-Huet Anomaly Not Reportable 08/08/18 02:09 Janiya Rods Not Reportable 08/08/18 02:09 Platelet Estimate Appears normal 08/08/18 02:09 Clumped Platelets Not Reportable 08/08/18 02:09 Plt Clumps, EDTA Not Reportable 08/08/18 02:09 Large Platelets Not Reportable 08/08/18 02:09 Giant Platelets Not Reportable 08/08/18 02:09 Platelet Satelliting Not Reportable 08/08/18 02:09 Plt Morphology Comment Not Reportable 08/08/18 02:09 RBC Morphology Not Reportable 08/08/18 02:09 Dimorphic RBCs Not Reportable 08/08/18 02:09 Polychromasia Not Reportable 08/08/18 02:09 Hypochromasia Few 08/08/18 02:09 Poikilocytosis Not Reportable 08/08/18 02:09 Anisocytosis 1+ 08/08/18 02:09 Microcytosis Not Reportable 08/08/18 02:09 Macrocytosis Not Reportable 08/08/18 02:09 Spherocytes Not Reportable 08/08/18 02:09 Pappenheimer Bodies Not Reportable 08/08/18 02:09 Sickle Cells Not Reportable 08/08/18 02:09 Target Cells Not Reportable 08/08/18 02:09 Tear Drop Cells Not Reportable 08/08/18 02:09 Ovalocytes Not Reportable 08/08/18 02:09 Stomatocytes Few 08/08/18 02:09 Helmet Cells Not Reportable 08/08/18 02:09 Lr-Dish Bodies Not Reportable 08/08/18 02:09 [place] Rings Not Reportable 08/08/18 02:09 [place] Cells Not Reportable 08/08/18 02:09 Bite Cells Not Reportable 08/08/18 02:09 Crenated Cell Not Reportable 08/08/18 02:09 Elliptocytes Not Reportable 08/08/18 02:09 Acanthocytes (Spur) Not Reportable 08/08/18 02:09 Rouleaux Not Reportable 08/08/18 02:09 Hemoglobin C Crystals Not Reportable 08/08/18 02:09 Schistocytes Not Reportable 08/08/18 02:09 Malaria parasites Not Reportable 08/08/18 02:09 Jigar Bodies Not Reportable 08/08/18 02:09 Hem Pathologist Commnt No 08/08/18 02:09 PT 13.4 Sec. (12.2-14.9) 08/07/18 15:08 INR 0.98 (0.87-1.13) 08/07/18 15:08 APTT 23.2 Sec. (24.2-36.6) L 08/07/18 15:08 D-Dimer 798.17 ng/mlDDU (0-234) H 07/27/18 15:52 Heparin Anti-Xa Level 1.18 U.I./ml (0.3-0.7) H 08/12/18 14:56 POC ABG pH 7.370 (7.35-7.45) 08/19/18 05:16 POC ABG pCO2 57.5 (35-45) H 08/19/18 05:16 POC ABG pO2 65 (80-105) L 08/19/18 05:16 POC ABG HCO3 33.2 08/19/18 05:16 POC ABG Total CO2 35 08/19/18 05:16 POC ABG O2 Sat 91 08/19/18 05:16 POC ABG Base Excess 8 08/19/18 05:16 FiO2 40 % 08/19/18 05:16 Sodium 138 mmol/L (137-145) 08/23/18 04:37 Potassium 4.0 mmol/L (3.6-5.0) 08/23/18 04:37 Chloride 99.0 mmol/L (98-107) 08/23/18 04:37 Carbon Dioxide 30 mmol/L (22-30) 08/23/18 04:37 Anion Gap 13 mmol/L 08/23/18 04:37 BUN 16 mg/dL (9-20) 08/23/18 04:37 Creatinine 0.5 mg/dL (0.8-1.5) L 08/23/18 04:37 Estimated GFR > 60 ml/min 08/23/18 04:37 BUN/Creatinine Ratio 32 % 08/23/18 04:37 Glucose 141 mg/dL (75-100) H 08/23/18 04:37 POC Glucose 118 (70-105) H 08/30/18 07:28 Lactic Acid 1.30 mmol/L (0.7-2.0) 08/03/18 16:48 Calcium 8.8 mg/dL (8.4-10.2) 08/23/18 04:37 Phosphorus 3.30 mg/dL (2.5-4.5) 08/19/18 04:55 Magnesium 2.30 mg/dL (1.7-2.3) 08/19/18 04:55 Total Bilirubin 1.30 mg/dL (0.1-1.2) H 07/27/18 12:59 AST 15 units/L (5-40) 07/27/18 12:59 ALT 16 units/L (7-56) 07/27/18 12:59 Alkaline Phosphatase 62 units/L (35-129) 07/27/18 12:59 Troponin T < 0.010 ng/mL (0.00-0.029) 07/27/18 12:59 C-Reactive Protein 2.30 mg/dL (0.00-1.30) H 08/03/18 16:48 NT-Pro-B Natriuret Pep 3913 pg/mL (0-900) H 07/27/18 12:59 Total Protein 6.2 g/dL (6.3-8.2) L 07/27/18 12:59 Albumin 3.6 g/dL (3.9-5) L 07/27/18 12:59 Albumin/Globulin Ratio 1.4 % 07/27/18 12:59 Triglycerides 64 mg/dL (2-149) 08/08/18 14:02 TSH 1.180 mlU/mL (0.270-4.200) 07/27/18 15:52 Free T4 1.28 ng/dL (0.76-1.46) 07/27/18 15:52 Urine Color Yellow (Yellow) 08/11/18 12:50 Urine Turbidity Clear (Clear) 08/11/18 12:50 Urine pH 6.0 (5.0-7.0) 08/11/18 12:50 Ur Specific [place] 1.015 (1.003-1.030) 08/11/18 12:50 Urine Protein <15 mg/dl mg/dL (Negative) 08/11/18 12:50 Urine Glucose (UA) 50 mg/dL (Negative) 08/11/18 12:50 Urine Ketones Neg mg/dL (Negative) 08/11/18 12:50 Urine Blood Neg (Negative) 08/11/18 12:50 Urine Nitrite Neg (Negative) 08/11/18 12:50 Urine Bilirubin Neg (Negative) 08/11/18 12:50 Urine Urobilinogen 4.0 mg/dL (<2.0) 08/11/18 12:50 Ur Leukocyte Esterase Neg (Negative) 08/11/18 12:50 Urine WBC (Auto) 2.0 /HPF (0.0-6.0) 08/11/18 12:50 Urine RBC (Auto) 2.0 /HPF (0.0-6.0) 08/11/18 12:50 U Epithel Cells (Auto) 2.0 /HPF (0-13.0) 07/29/18 09:24 Urine Bacteria (Auto) 1+ /HPF (Negative) 08/11/18 12:50 Urine Mucus Few /HPF 08/11/18 12:50 Urine Yeast (Bud[place]) 1+ /HPF 07/29/18 09:24 Urine Creatinine 72.3 mg/dL (0.1-20.0) H 07/29/18 09:24 Urine Sodium 12 mmol/L 07/29/18 09:24 Random Vancomycin 9.2 ug/mL (0-40.0) 07/29/18 04:21 Nutrition/Malnutrition Assess - Dietary Evaluation Nutrition/Malnutrition Findings: Nutrition Notes Start: 07/28/18 10:54 Freq: Status: Active Protocol: Document 08/23/18 14:09 CT (Rec: 08/23/18 14:53 CT [id number]) Co-Sign 08/23/18 14:09 RM Nutrition Notes Initial or Follow up Reassessment Current Diagnosis Acute Kidney Injury COPD Sepsis Hypertension Heart Failure Respiratory Failure Other Pertinent Diagnosis Hx of Skin Cancer Current Diet Nepro at 50ml/hr Labs/Tests Reviewed Pertinent Medications Reviewed Height 5 ft 8 in Weight 76 kg [place] Body Weight (lbs) 154.0 BMI 25.4 Weight change and time frame Recorded wt. loss likely d/t fluid change. Subjective/Other Information Nepro infusing at goal rate of 50mL/hr, well tolerated per RN. Burn Absent Trauma Absent #1 Nutrition Diagnosis Inadequate oral intake Diagnosis Progress(for reassessment Continues documentation) Is patient on ventilator? Yes Is Patient Ambulatory and/or Out of Bed No REE-([facility]-confined to bed) 0229.167 Calculation Used for Recommendations [facility] Additional Notes protein (1.2-2g/kg): 91-152g fluid: 1mL/kcal Nutrition Intervention Change Diet Order: Continue TF Nutrition Support: Nepro at 50mL/hr 250 mL free water flush q4h or per MD. Kcal 2,160 Protein (gm) 97 Fluid (mL) 872 Goal #1 TF tolerance and rate Goal #2 Continue to meet at least 80% of kcal needs and 80-100% of protein needs. Follow-Up By: 08/30/18 Additional Comments F/U: stable TF
--- NOTE | 2018-08-30 14:46 | Discharge Summary ---
Providers - Providers Date of Admission: 07/27/18 15:59 Attending physician: NIKA PALMER MD 08/23/18 16:31 Speech Therapy Eval for Passy-Lance Valve [CONS] Routine Reason For Exam: Pt cleared for PMV 08/26/18 10:08 Occupational Therapy Evaluate and Treat [CONS] Routine Comment: Reason For Exam: pna/VENT/DECONDITIONED 08/27/18 18:09 Consult to Case Management [CONS] Routine Services Needed at Discharge: Other Notified:: CASE MANAGEMENT Phone number called:: [phone] Was contact made?: Yes If yes, spoke with:: ZION MARCUS Time called:: 12:30 Comment:: need IRU placement 07/27/18 16:06 Consult to Physician [CONS] Routine Comment: LEFT MESSAGE ON DR ADALID JIMENEZ Consulting Provider: ELIZA KENNEDY Physician Instructions: Reason For Exam: CHF, A fib on amiodarone drip 07/27/18 20:10 Consult to Dietitian/Nutrition [CONS] Routine Physician Instructions: Reason For Exam: Reason for Consult: Evaluate nutritional intake 07/28/18 12:57 Consult to Physician [CONS] Routine Comment: Consulting Provider: ADELINA DUKE Physician Instructions: Reason For Exam: arf 08/01/18 10:41 Consult to Physician [CONS] Routine Comment: Consulting Provider: COLTON DOWNS Physician Instructions: Reason For Exam: antibiotic management 08/01/18 13:50 Physical Therapy Evaluation and Treat [CONS] Routine Comment: up in cardiac chair daily please Reason For Exam: evaluate and treat 08/05/18 10:15 Consult to Physician [CONS] Routine Comment: Consulting Provider: JOMAR ROBERTS Physician Instructions: Reason For Exam: hematuria 08/06/18 09:23 Consult to Physician [CONS] Routine Comment: Consulting Provider: ANIKA SOTO Physician Instructions: Reason For Exam: trachesotomy placement Primary care physician: WINDOWS [employer] DEVELOPER Hospitalization Condition: Fair Hospital course: patient is 73 yo with H/O COPD, PVD, HTN, HLD, Seizure Disorder, Skin Cancer presented with chest pain, shortness of breath. -He presented in A. fib with RVR, he was medically managed and transitioned from IV to oral medications -The patient suffered respiratory failure for which she was on the ventilator which required prolonged weaning, therefore trach and PEG was placed on 08/11/19. The patient is currently on Trache collar with FiO2 of 50% , oxygen is being weaned -The patient completed a course of antibiotics for treatment of bacteremia due to Streptococcus anginosus -He was medically treated for acute renal failure with IV fluids and that has now resolved -The patient also suffers a urethral stricture with obstruction and therefore we received a Osborne cath that was placed by urology which is not to be removed -He was medically treated for COPD exacerbation, and medications were optimized for his chronic conditions -The patient's was dc to Acute rehab Diagnosis Septicemia Streptococcus anginous is bacteremia Left lower lobe pneumonia Acute hypoxia was a failure on mechanical ventilator greater than 96 hours Atrial fibrillation with RVR Acute renal failure due to vasomotor nephropathy, Hematuria/Urethral stricture. COPD exacerbation. Hypertension. Hyperlipidemia. Peripheral vascular disease. Disposition.Plan is acute rehab placement, auth in progress Disposition: [id number] IN REHAB FACILITY Time spent for discharge: 33 mins Core Measure Documentation - Palliative Care Palliative Care/ Comfort Measures: Not Applicable - Core Measures Any of the following diagnoses?: none Exam - Physical Exam Narrative exam: General.: Appears well, no distress, nontoxic HEENT: Tracheostomy in place Neck: supple Cardiac: S1-S2 heard Lungs: clear to auscultation bilaterally Abdomen: soft , nontender, nondistended, bowel sounds positive Extremities: no edema clubbing or cyanosis Skin: no rash or lesions Neurologic: no gross focal deficits Psych: calm, and cooperative - Constitutional Vitals: Temp Pulse Resp BP Pulse Ox 97.9 F 85 20 120/67 95 08/30/18 12:21 08/30/18 12:21 08/30/18 12:21 08/30/18 12:21 08/30/18 12:21 Plan Follow up with: PRIMARY CARE, [Primary Care Provider] - 3-5 Days Prescriptions: Quetiapine Fumarate [Seroquel] 100 mg PO HS #30 tablet
[2018-08-30 16:30] VITALS: BP 136/69
[2018-08-30] MEDS: TYLENOL FEEDTUBE PRN (17:14)
--- NOTE | 2018-08-30 20:10 | Progress Note ---
Assessment and Plan Patient discharged. Not seen the patient today.. - Patient Problems (1) Acute respiratory failure Status: Acute Qualifiers: Respiratory failure complication: hypoxia Qualified Code(s): J96.01 - Acute respiratory failure with hypoxia Plan to address problem: T (2) Atrial fibrillation with RVR Status: Acute (3) CHF (congestive heart failure) Status: Acute Qualifiers: Heart failure type: systolic Heart failure chronicity: acute Qualified Code(s): I50.21 - Acute systolic (congestive) heart failure (4) Pneumonia Status: Acute Plan to address problem: (5) COPD (chronic obstructive pulmonary disease) Status: Chronic (6) Hypertension Status: Chronic Qualifiers: Hypertension type: essential hypertension Qualified Code(s): I10 - Essential (primary) hypertension Subjective Date of service: 08/30/18 Principal diagnosis: Acute hypoxemic respiratory failure; A-fib with RVR; Possible CHF; H/O DVT Interval history: Patient discharged. Not seen the patient to day. Objective Vital Signs - 12hr 08/30/18 08/30/18 08/30/18 08:51 09:06 09:07 Temperature Pulse Rate Pulse Rate [ 75 73 Bilateral] Respiratory Rate Respiratory 20 20 Rate [Bilateral ] Blood Pressure O2 Sat by Pulse 92 Oximetry O2 Sat by Pulse Oximetry [ Assessment] 08/30/18 08/30/18 08/30/18 09:08 12:21 16:23 Temperature 97.9 F 98.6 F Pulse Rate 85 83 Pulse Rate [ Bilateral] Respiratory 20 20 Rate Respiratory Rate [Bilateral ] Blood Pressure 120/67 136/69 O2 Sat by Pulse 95 93 Oximetry O2 Sat by Pulse 92 Oximetry [ Assessment] Effort: mildly labored CBC and BMP: 08/23/18 04:37 08/23/18 04:37 ABG, PT/INR, D-dimer: ABG POC ABG pH 7.370 (7.35-7.45) 08/19/18 05:16 POC ABG pCO2 57.5 (35-45) H 08/19/18 05:16 POC ABG pO2 65 (80-105) L 08/19/18 05:16 POC ABG HCO3 33.2 08/19/18 05:16 POC ABG Total CO2 35 08/19/18 05:16 POC ABG O2 Sat 91 08/19/18 05:16 PT/INR, D-dimer PT 13.4 Sec. (12.2-14.9) 08/07/18 15:08 INR 0.98 (0.87-1.13) 08/07/18 15:08 D-Dimer 798.17 ng/mlDDU (0-234) H 07/27/18 15:52 Abnormal lab findings: Abnormal Labs 07/27/18 07/27/18 07/27/18 12:59 12:59 12:59 WBC 15.8 H RBC Hgb Hct MCV 104 H MCH 34 H MCHC RDW 16.3 H Plt Count Lymph % (Auto) [place] % (Auto) Lymph # [place] # Seg Neutrophils % Seg Neuts % (Manual) 88.0 H Lymphocytes % (Manual) 3.0 L Monocytes % (Manual) Nucleated RBC % Seg Neutrophils # Seg Neutrophils # Man 13.9 H Lymphocytes # (Manual) 0.5 L Monocytes # (Manual) PT 17.0 H INR 1.34 H APTT D-Dimer Heparin Anti-Xa Level POC ABG pH POC ABG pCO2 POC ABG pO2 Sodium Potassium Chloride Carbon Dioxide 21 L BUN 38 H Creatinine 1.6 H Glucose POC Glucose Lactic Acid Calcium Phosphorus Total Bilirubin 1.30 H C-Reactive Protein NT-Pro-B Natriuret Pep 3913 H Total Protein 6.2 L Albumin 3.6 L Urine WBC (Auto) Urine Creatinine 07/27/18 07/27/18 07/27/18 15:52 16:12 17:09 WBC RBC Hgb Hct MCV MCH MCHC RDW Plt Count Lymph % (Auto) [place] % (Auto) Lymph # [place] # Seg Neutrophils % Seg Neuts % (Manual) Lymphocytes % (Manual) Monocytes % (Manual) Nucleated RBC % Seg Neutrophils # Seg Neutrophils # Man Lymphocytes # (Manual) Monocytes # (Manual) PT 16.0 H INR 1.24 H APTT D-Dimer 798.17 H Heparin Anti-Xa Level POC ABG pH POC ABG pCO2 POC ABG pO2 Sodium Potassium Chloride Carbon Dioxide BUN Creatinine Glucose POC Glucose Lactic Acid 5.00 H* Calcium Phosphorus Total Bilirubin C-Reactive Protein NT-Pro-B Natriuret Pep Total Protein Albumin Urine WBC (Auto) Urine Creatinine 07/27/18 07/27/18 07/27/18 17:59 18:07 21:31 WBC RBC Hgb Hct MCV MCH MCHC RDW Plt Count Lymph % (Auto) [place] % (Auto) Lymph # [place] # Seg Neutrophils % Seg Neuts % (Manual) Lymphocytes % (Manual) Monocytes % (Manual) Nucleated RBC % Seg Neutrophils # Seg Neutrophils # Man Lymphocytes # (Manual) Monocytes # (Manual) PT INR APTT D-Dimer Heparin Anti-Xa Level POC ABG pH 7.344 L POC ABG pCO2 POC ABG pO2 36 L Sodium Potassium Chloride Carbon Dioxide BUN Creatinine Glucose POC Glucose Lactic Acid 5.20 H* 5.00 H* Calcium Phosphorus Total Bilirubin C-Reactive Protein NT-Pro-B Natriuret Pep Total Protein Albumin Urine WBC (Auto) Urine Creatinine 07/27/18 07/27/18 07/27/18 21:57 22:42 23:26 WBC RBC Hgb Hct MCV MCH MCHC RDW Plt Count Lymph % (Auto) [place] % (Auto) Lymph # [place] # Seg Neutrophils % Seg Neuts % (Manual) Lymphocytes % (Manual) Monocytes % (Manual) Nucleated RBC % Seg Neutrophils # Seg Neutrophils # Man Lymphocytes # (Manual) Monocytes # (Manual) PT INR APTT D-Dimer Heparin Anti-Xa Level POC ABG pH 7.199 L POC ABG pCO2 62.0 H POC ABG pO2 Sodium Potassium Chloride Carbon Dioxide BUN Creatinine Glucose POC Glucose Lactic Acid 4.70 H* 5.00 H* Calcium Phosphorus Total Bilirubin C-Reactive Protein NT-Pro-B Natriuret Pep Total Protein Albumin Urine WBC (Auto) Urine Creatinine 07/28/18 07/28/18 07/28/18 00:45 05:40 05:58 WBC RBC Hgb Hct MCV MCH MCHC RDW Plt Count Lymph % (Auto) [place] % (Auto) Lymph # [place] # Seg Neutrophils % Seg Neuts % (Manual) Lymphocytes % (Manual) Monocytes % (Manual) Nucleated RBC % Seg Neutrophils # Seg Neutrophils # Man Lymphocytes # (Manual) Monocytes # (Manual) PT INR APTT D-Dimer Heparin Anti-Xa Level 0.11 L POC ABG pH 7.186 L POC ABG pCO2 60.1 H POC ABG pO2 68 L Sodium Potassium Chloride Carbon Dioxide BUN Creatinine Glucose POC Glucose Lactic Acid 4.70 H* Calcium Phosphorus Total Bilirubin C-Reactive Protein NT-Pro-B Natriuret Pep Total Protein Albumin Urine WBC (Auto) Urine Creatinine 07/28/18 07/28/18 07/28/18 06:01 06:01 07:19 WBC 12.5 H RBC 3.51 L Hgb 11.5 L Hct MCV 104 H MCH 33 H MCHC RDW 16.6 H Plt Count Lymph % (Auto) [place] % (Auto) Lymph # [place] # Seg Neutrophils % Seg Neuts % (Manual) Lymphocytes % (Manual) Monocytes % (Manual) Nucleated RBC % Seg Neutrophils # Seg Neutrophils # Man Lymphocytes # (Manual) Monocytes # (Manual) PT INR APTT D-Dimer Heparin Anti-Xa Level 0.14 L POC ABG pH POC ABG pCO2 POC ABG pO2 Sodium 135 L Potassium 5.1 H Chloride 95.0 L Carbon Dioxide 21 L BUN 54 H Creatinine 2.6 H D Glucose POC Glucose Lactic Acid Calcium Phosphorus Total Bilirubin C-Reactive Protein NT-Pro-B Natriuret Pep Total Protein Albumin Urine WBC (Auto) Urine Creatinine 07/28/18 07/28/18 07/28/18 07:19 09:20 11:06 WBC RBC Hgb Hct MCV MCH MCHC RDW Plt Count Lymph % (Auto) [place] % (Auto) Lymph # [place] # Seg Neutrophils % Seg Neuts % (Manual) Lymphocytes % (Manual) Monocytes % (Manual) Nucleated RBC % Seg Neutrophils # Seg Neutrophils # Man Lymphocytes # (Manual) Monocytes # (Manual) PT INR APTT D-Dimer Heparin Anti-Xa Level POC ABG pH 7.266 L POC ABG pCO2 49.7 H POC ABG pO2 74 L Sodium Potassium Chloride Carbon Dioxide BUN Creatinine Glucose POC Glucose Lactic Acid 4.00 H* 3.90 H* Calcium Phosphorus Total Bilirubin C-Reactive Protein NT-Pro-B Natriuret Pep Total Protein Albumin Urine WBC (Auto) Urine Creatinine 07/28/18 07/28/18 07/28/18 15:06 20:45 23:36 WBC RBC Hgb Hct MCV MCH MCHC RDW Plt Count Lymph % (Auto) [place] % (Auto) Lymph # [place] # Seg Neutrophils % Seg Neuts % (Manual) Lymphocytes % (Manual) Monocytes % (Manual) Nucleated RBC % Seg Neutrophils # Seg Neutrophils # Man Lymphocytes # (Manual) Monocytes # (Manual) PT INR APTT D-Dimer Heparin Anti-Xa Level 0.15 L POC ABG pH POC ABG pCO2 POC ABG pO2 Sodium 134 L Potassium 5.2 H Chloride Carbon Dioxide BUN 58 H Creatinine 2.1 H Glucose 110 H POC Glucose 125 H Lactic Acid Calcium Phosphorus Total Bilirubin C-Reactive Protein NT-Pro-B Natriuret Pep Total Protein Albumin Urine WBC (Auto) Urine Creatinine 07/29/18 07/29/18 07/29/18 01:12 04:21 04:21 WBC RBC 3.21 L Hgb 10.8 L Hct 33.0 L MCV 103 H MCH 34 H MCHC RDW 16.4 H Plt Count Lymph % (Auto) [place] % (Auto) Lymph # [place] # Seg Neutrophils % Seg Neuts % (Manual) Lymphocytes % (Manual) 11.0 L Monocytes % (Manual) Nucleated RBC % Seg Neutrophils # Seg Neutrophils # Man Lymphocytes # (Manual) 1.0 L Monocytes # (Manual) PT INR APTT D-Dimer Heparin Anti-Xa Level 0.21 L POC ABG pH POC ABG pCO2 POC ABG pO2 Sodium Potassium Chloride Carbon Dioxide BUN 48 H Creatinine 1.6 H Glucose 166 H POC Glucose Lactic Acid Calcium Phosphorus Total Bilirubin C-Reactive Protein NT-Pro-B Natriuret Pep Total Protein Albumin Urine WBC (Auto) Urine Creatinine 07/29/18 07/29/18 07/29/18 05:19 08:16 09:24 WBC RBC Hgb Hct MCV MCH MCHC RDW Plt Count Lymph % (Auto) [place] % (Auto) Lymph # [place] # Seg Neutrophils % Seg Neuts % (Manual) Lymphocytes % (Manual) Monocytes % (Manual) Nucleated RBC % Seg Neutrophils # Seg Neutrophils # Man Lymphocytes # (Manual) Monocytes # (Manual) PT INR APTT D-Dimer Heparin Anti-Xa Level 0.25 L POC ABG pH POC ABG pCO2 POC ABG pO2 Sodium Potassium Chloride Carbon Dioxide BUN Creatinine Glucose POC Glucose 181 H Lactic Acid Calcium Phosphorus Total Bilirubin C-Reactive Protein NT-Pro-B Natriuret Pep Total Protein Albumin Urine WBC (Auto) 29.0 H Urine Creatinine 07/29/18 07/29/18 07/29/18 09:24 10:00 15:03 WBC RBC Hgb Hct MCV MCH MCHC RDW Plt Count Lymph % (Auto) [place] % (Auto) Lymph # [place] # Seg Neutrophils % Seg Neuts % (Manual) Lymphocytes % (Manual) Monocytes % (Manual) Nucleated RBC % Seg Neutrophils # Seg Neutrophils # Man Lymphocytes # (Manual) Monocytes # (Manual) PT INR APTT D-Dimer Heparin Anti-Xa Level POC ABG pH POC ABG pCO2 POC ABG pO2 Sodium Potassium Chloride Carbon Dioxide BUN Creatinine Glucose POC Glucose 195 H 167 H Lactic Acid Calcium Phosphorus Total Bilirubin C-Reactive Protein NT-Pro-B Natriuret Pep Total Protein Albumin Urine WBC (Auto) Urine Creatinine 72.3 H 07/29/18 07/29/18 07/30/18 17:51 21:32 01:38 WBC RBC Hgb Hct MCV MCH MCHC RDW Plt Count Lymph % (Auto) [place] % (Auto) Lymph # [place] # Seg Neutrophils % Seg Neuts % (Manual) Lymphocytes % (Manual) Monocytes % (Manual) Nucleated RBC % Seg Neutrophils # Seg Neutrophils # Man Lymphocytes # (Manual) Monocytes # (Manual) PT INR APTT D-Dimer Heparin Anti-Xa Level POC ABG pH POC ABG pCO2 POC ABG pO2 Sodium Potassium Chloride Carbon Dioxide BUN Creatinine Glucose POC Glucose 167 H 217 H 194 H Lactic Acid Calcium Phosphorus Total Bilirubin C-Reactive Protein NT-Pro-B Natriuret Pep Total Protein Albumin Urine WBC (Auto) Urine Creatinine 07/30/18 07/30/18 07/30/18 03:21 05:13 10:18 WBC RBC Hgb Hct MCV MCH MCHC RDW Plt Count Lymph % (Auto) [place] % (Auto) Lymph # [place] # Seg Neutrophils % Seg Neuts % (Manual) Lymphocytes % (Manual) Monocytes % (Manual) Nucleated RBC % Seg Neutrophils # Seg Neutrophils # Man Lymphocytes # (Manual) Monocytes # (Manual) PT INR APTT D-Dimer Heparin Anti-Xa Level POC ABG pH POC ABG pCO2 50.3 H POC ABG pO2 78 L Sodium Potassium Chloride Carbon Dioxide BUN 41 H Creatinine Glucose 202 H POC Glucose 151 H Lactic Acid Calcium Phosphorus Total Bilirubin C-Reactive Protein NT-Pro-B Natriuret Pep Total Protein Albumin Urine WBC (Auto) Urine Creatinine 07/30/18 07/30/18 07/30/18 11:29 16:28 18:12 WBC RBC Hgb Hct MCV MCH MCHC RDW Plt Count Lymph % (Auto) [place] % (Auto) Lymph # [place] # Seg Neutrophils % Seg Neuts % (Manual) Lymphocytes % (Manual) Monocytes % (Manual) Nucleated RBC % Seg Neutrophils # Seg Neutrophils # Man Lymphocytes # (Manual) Monocytes # (Manual) PT INR APTT D-Dimer Heparin Anti-Xa Level POC ABG pH 7.326 L POC ABG pCO2 53.2 H POC ABG pO2 70 L Sodium Potassium Chloride Carbon Dioxide BUN Creatinine Glucose POC Glucose 247 H 212 H Lactic Acid Calcium Phosphorus Total Bilirubin C-Reactive Protein NT-Pro-B Natriuret Pep Total Protein Albumin Urine WBC (Auto) Urine Creatinine 07/30/18 07/30/18 07/31/18 20:08 21:52 01:59 WBC RBC Hgb Hct MCV MCH MCHC RDW Plt Count Lymph % (Auto) [place] % (Auto) Lymph # [place] # Seg Neutrophils % Seg Neuts % (Manual) Lymphocytes % (Manual) Monocytes % (Manual) Nucleated RBC % Seg Neutrophils # Seg Neutrophils # Man Lymphocytes # (Manual) Monocytes # (Manual) PT INR APTT D-Dimer Heparin Anti-Xa Level POC ABG pH POC ABG pCO2 POC ABG pO2 Sodium Potassium Chloride Carbon Dioxide BUN Creatinine Glucose POC Glucose 205 H 215 H 242 H Lactic Acid Calcium Phosphorus Total Bilirubin C-Reactive Protein NT-Pro-B Natriuret Pep Total Protein Albumin Urine WBC (Auto) Urine Creatinine 07/31/18 07/31/18 07/31/18 03:14 03:14 04:55 WBC RBC Hgb 10.6 L Hct 33.2 L MCV MCH MCHC RDW Plt Count Lymph % (Auto) [place] % (Auto) Lymph # [place] # Seg Neutrophils % Seg Neuts % (Manual) Lymphocytes % (Manual) Monocytes % (Manual) Nucleated RBC % Seg Neutrophils # Seg Neutrophils # Man Lymphocytes # (Manual) Monocytes # (Manual) PT INR APTT D-Dimer Heparin Anti-Xa Level POC ABG pH 7.331 L POC ABG pCO2 67.1 H POC ABG pO2 Sodium Potassium Chloride Carbon Dioxide BUN 36 H Creatinine 0.7 L Glucose 242 H POC Glucose Lactic Acid Calcium 10.3 H Phosphorus 2.30 L Total Bilirubin C-Reactive Protein NT-Pro-B Natriuret Pep Total Protein Albumin Urine WBC (Auto) Urine Creatinine 07/31/18 07/31/18 07/31/18 05:37 10:08 14:07 WBC RBC Hgb Hct MCV MCH MCHC RDW Plt Count Lymph % (Auto) [place] % (Auto) Lymph # [place] # Seg Neutrophils % Seg Neuts % (Manual) Lymphocytes % (Manual) Monocytes % (Manual) Nucleated RBC % Seg Neutrophils # Seg Neutrophils # Man Lymphocytes # (Manual) Monocytes # (Manual) PT INR APTT D-Dimer Heparin Anti-Xa Level POC ABG pH POC ABG pCO2 POC ABG pO2 Sodium Potassium Chloride Carbon Dioxide BUN Creatinine Glucose POC Glucose 193 H 247 H 225 H Lactic Acid Calcium Phosphorus Total Bilirubin C-Reactive Protein NT-Pro-B Natriuret Pep Total Protein Albumin Urine WBC (Auto) Urine Creatinine 07/31/18 07/31/18 08/01/18 18:12 21:34 02:00 WBC RBC Hgb Hct MCV MCH MCHC RDW Plt Count Lymph % (Auto) [place] % (Auto) Lymph # [place] # Seg Neutrophils % Seg Neuts % (Manual) Lymphocytes % (Manual) Monocytes % (Manual) Nucleated RBC % Seg Neutrophils # Seg Neutrophils # Man Lymphocytes # (Manual) Monocytes # (Manual) PT INR APTT D-Dimer Heparin Anti-Xa Level POC ABG pH POC ABG pCO2 POC ABG pO2 Sodium Potassium Chloride Carbon Dioxide BUN Creatinine Glucose POC Glucose 197 H 204 H 239 H Lactic Acid Calcium Phosphorus Total Bilirubin C-Reactive Protein NT-Pro-B Natriuret Pep Total Protein Albumin Urine WBC (Auto) Urine Creatinine 08/01/18 08/01/18 08/01/18 04:13 04:37 05:29 WBC RBC Hgb Hct MCV MCH MCHC RDW Plt Count Lymph % (Auto) [place] % (Auto) Lymph # [place] # Seg Neutrophils % Seg Neuts % (Manual) Lymphocytes % (Manual) Monocytes % (Manual) Nucleated RBC % Seg Neutrophils # Seg Neutrophils # Man Lymphocytes # (Manual) Monocytes # (Manual) PT INR APTT D-Dimer Heparin Anti-Xa Level POC ABG pH 7.296 L POC ABG pCO2 81.9 H POC ABG pO2 190 H Sodium 150 H D Potassium Chloride Carbon Dioxide 37 H D BUN 37 H Creatinine 0.6 L Glucose 223 H POC Glucose 219 H Lactic Acid Calcium Phosphorus Total Bilirubin C-Reactive Protein NT-Pro-B Natriuret Pep Total Protein Albumin Urine WBC (Auto) Urine Creatinine 08/01/18 08/01/18 08/01/18 09:28 11:00 17:36 WBC RBC Hgb Hct MCV MCH MCHC RDW Plt Count Lymph % (Auto) [place] % (Auto) Lymph # [place] # Seg Neutrophils % Seg Neuts % (Manual) Lymphocytes % (Manual) Monocytes % (Manual) Nucleated RBC % Seg Neutrophils # Seg Neutrophils # Man Lymphocytes # (Manual) Monocytes # (Manual) PT INR APTT D-Dimer Heparin Anti-Xa Level POC ABG pH POC ABG pCO2 61.2 H POC ABG pO2 69 L Sodium Potassium Chloride Carbon Dioxide BUN Creatinine Glucose POC Glucose 185 H 234 H Lactic Acid Calcium Phosphorus Total Bilirubin C-Reactive Protein NT-Pro-B Natriuret Pep Total Protein Albumin Urine WBC (Auto) Urine Creatinine 08/01/18 08/02/18 08/02/18 21:54 00:08 00:44 WBC RBC Hgb Hct MCV MCH MCHC RDW Plt Count Lymph % (Auto) [place] % (Auto) Lymph # [place] # Seg Neutrophils % Seg Neuts % (Manual) Lymphocytes % (Manual) Monocytes % (Manual) Nucleated RBC % Seg Neutrophils # Seg Neutrophils # Man Lymphocytes # (Manual) Monocytes # (Manual) PT INR APTT D-Dimer Heparin Anti-Xa Level 0.77 H POC ABG pH POC ABG pCO2 66.4 H POC ABG pO2 64 L Sodium Potassium Chloride Carbon Dioxide BUN Creatinine Glucose POC Glucose 242 H Lactic Acid Calcium Phosphorus Total Bilirubin C-Reactive Protein NT-Pro-B Natriuret Pep Total Protein Albumin Urine WBC (Auto) Urine Creatinine 08/02/18 08/02/18 08/02/18 02:46 04:45 04:45 WBC RBC Hgb 10.7 L Hct 33.7 L MCV MCH MCHC RDW Plt Count Lymph % (Auto) [place] % (Auto) Lymph # [place] # Seg Neutrophils % Seg Neuts % (Manual) Lymphocytes % (Manual) Monocytes % (Manual) Nucleated RBC % Seg Neutrophils # Seg Neutrophils # Man Lymphocytes # (Manual) Monocytes # (Manual) PT INR APTT D-Dimer Heparin Anti-Xa Level POC ABG pH POC ABG pCO2 POC ABG pO2 Sodium 152 H Potassium Chloride 108.1 H Carbon Dioxide 39 H BUN 38 H Creatinine 0.6 L Glucose 226 H POC Glucose 206 H Lactic Acid Calcium Phosphorus Total Bilirubin C-Reactive Protein NT-Pro-B Natriuret Pep Total Protein Albumin Urine WBC (Auto) Urine Creatinine 08/02/18 08/02/18 08/02/18 05:31 09:46 14:23 WBC RBC Hgb Hct MCV MCH MCHC RDW Plt Count Lymph % (Auto) [place] % (Auto) Lymph # [place] # Seg Neutrophils % Seg Neuts % (Manual) Lymphocytes % (Manual) Monocytes % (Manual) Nucleated RBC % Seg Neutrophils # Seg Neutrophils # Man Lymphocytes # (Manual) Monocytes # (Manual) PT INR APTT D-Dimer Heparin Anti-Xa Level 0.91 H POC ABG pH POC ABG pCO2 POC ABG pO2 Sodium Potassium Chloride Carbon Dioxide BUN Creatinine Glucose POC Glucose 214 H 210 H Lactic Acid Calcium Phosphorus Total Bilirubin C-Reactive Protein NT-Pro-B Natriuret Pep Total Protein Albumin Urine WBC (Auto) Urine Creatinine 08/02/18 08/02/18 08/02/18 15:46 17:56 21:50 WBC RBC Hgb Hct MCV MCH MCHC RDW Plt Count Lymph % (Auto) [place] % (Auto) Lymph # [place] # Seg Neutrophils % Seg Neuts % (Manual) Lymphocytes % (Manual) Monocytes % (Manual) Nucleated RBC % Seg Neutrophils # Seg Neutrophils # Man Lymphocytes # (Manual) Monocytes # (Manual) PT INR APTT D-Dimer Heparin Anti-Xa Level 0.99 H POC ABG pH POC ABG pCO2 POC ABG pO2 Sodium Potassium Chloride Carbon Dioxide BUN Creatinine Glucose POC Glucose 252 H 222 H Lactic Acid Calcium Phosphorus Total Bilirubin C-Reactive Protein NT-Pro-B Natriuret Pep Total Protein Albumin Urine WBC (Auto) Urine Creatinine 08/03/18 08/03/18 08/03/18 02:18 05:21 05:25 WBC RBC Hgb Hct MCV MCH MCHC RDW Plt Count Lymph % (Auto) [place] % (Auto) Lymph # [place] # Seg Neutrophils % Seg Neuts % (Manual) Lymphocytes % (Manual) Monocytes % (Manual) Nucleated RBC % Seg Neutrophils # Seg Neutrophils # Man Lymphocytes # (Manual) Monocytes # (Manual) PT INR APTT D-Dimer Heparin Anti-Xa Level POC ABG pH POC ABG pCO2 POC ABG pO2 Sodium 151 H Potassium Chloride 107.3 H Carbon Dioxide 37 H BUN 42 H Creatinine 0.6 L Glucose 263 H POC Glucose 241 H 241 H Lactic Acid Calcium Phosphorus Total Bilirubin C-Reactive Protein NT-Pro-B Natriuret Pep Total Protein Albumin Urine WBC (Auto) Urine Creatinine 08/03/18 08/03/18 08/03/18 09:11 12:20 14:33 WBC RBC Hgb Hct MCV MCH MCHC RDW Plt Count Lymph % (Auto) [place] % (Auto) Lymph # [place] # Seg Neutrophils % Seg Neuts % (Manual) Lymphocytes % (Manual) Monocytes % (Manual) Nucleated RBC % Seg Neutrophils # Seg Neutrophils # Man Lymphocytes # (Manual) Monocytes # (Manual) PT INR APTT D-Dimer Heparin Anti-Xa Level POC ABG pH POC ABG pCO2 POC ABG pO2 Sodium Potassium Chloride Carbon Dioxide BUN Creatinine Glucose POC Glucose 272 H 234 H 247 H Lactic Acid Calcium Phosphorus Total Bilirubin C-Reactive Protein NT-Pro-B Natriuret Pep Total Protein Albumin Urine WBC (Auto) Urine Creatinine 08/03/18 08/03/18 08/04/18 16:48 21:21 01:56 WBC RBC Hgb Hct MCV MCH MCHC RDW Plt Count Lymph % (Auto) [place] % (Auto) Lymph # [place] # Seg Neutrophils % Seg Neuts % (Manual) Lymphocytes % (Manual) Monocytes % (Manual) Nucleated RBC % Seg Neutrophils # Seg Neutrophils # Man Lymphocytes # (Manual) Monocytes # (Manual) PT INR APTT D-Dimer Heparin Anti-Xa Level POC ABG pH POC ABG pCO2 POC ABG pO2 Sodium Potassium Chloride Carbon Dioxide BUN Creatinine Glucose POC Glucose 180 H 189 H Lactic Acid Calcium Phosphorus Total Bilirubin C-Reactive Protein 2.30 H NT-Pro-B Natriuret Pep Total Protein Albumin Urine WBC (Auto) Urine Creatinine 08/04/18 08/04/18 08/04/18 01:58 05:05 05:05 WBC 25.5 H RBC 3.31 L Hgb 10.8 L Hct 34.1 L MCV 103 H MCH 33 H MCHC RDW 16.0 H Plt Count Lymph % (Auto) [place] % (Auto) Lymph # [place] # Seg Neutrophils % Seg Neuts % (Manual) Lymphocytes % (Manual) 8.0 L Monocytes % (Manual) Nucleated RBC % 2.0 H Seg Neutrophils # Seg Neutrophils # Man 16.3 H Lymphocytes # (Manual) Monocytes # (Manual) 1.0 H PT INR APTT D-Dimer Heparin Anti-Xa Level 0.79 H POC ABG pH POC ABG pCO2 POC ABG pO2 Sodium 148 H Potassium Chloride Carbon Dioxide 36 H BUN 35 H Creatinine 0.6 L Glucose 160 H POC Glucose Lactic Acid Calcium Phosphorus Total Bilirubin C-Reactive Protein NT-Pro-B Natriuret Pep Total Protein Albumin Urine WBC (Auto) Urine Creatinine 08/04/18 08/04/18 08/04/18 05:24 05:33 08:46 WBC RBC Hgb Hct MCV MCH MCHC RDW Plt Count Lymph % (Auto) [place] % (Auto) Lymph # [place] # Seg Neutrophils % Seg Neuts % (Manual) Lymphocytes % (Manual) Monocytes % (Manual) Nucleated RBC % Seg Neutrophils # Seg Neutrophils # Man Lymphocytes # (Manual) Monocytes # (Manual) PT INR APTT D-Dimer Heparin Anti-Xa Level 0.76 H POC ABG pH POC ABG pCO2 65.7 H POC ABG pO2 63 L Sodium Potassium Chloride Carbon Dioxide BUN Creatinine Glucose POC Glucose 159 H Lactic Acid Calcium Phosphorus Total Bilirubin C-Reactive Protein NT-Pro-B Natriuret Pep Total Protein Albumin Urine WBC (Auto) Urine Creatinine 08/04/18 08/04/18 08/04/18 09:12 15:38 18:20 WBC RBC Hgb Hct MCV MCH MCHC RDW Plt Count Lymph % (Auto) [place] % (Auto) Lymph # [place] # Seg Neutrophils % Seg Neuts % (Manual) Lymphocytes % (Manual) Monocytes % (Manual) Nucleated RBC % Seg Neutrophils # Seg Neutrophils # Man Lymphocytes # (Manual) Monocytes # (Manual) PT INR APTT D-Dimer Heparin Anti-Xa Level POC ABG pH POC ABG pCO2 POC ABG pO2 Sodium Potassium Chloride Carbon Dioxide BUN Creatinine Glucose POC Glucose 140 H 267 H 252 H Lactic Acid Calcium Phosphorus Total Bilirubin C-Reactive Protein NT-Pro-B Natriuret Pep Total Protein Albumin Urine WBC (Auto) Urine Creatinine 08/04/18 08/05/18 08/05/18 21:17 02:51 04:36 WBC RBC Hgb Hct MCV MCH MCHC RDW Plt Count Lymph % (Auto) [place] % (Auto) Lymph # [place] # Seg Neutrophils % Seg Neuts % (Manual) Lymphocytes % (Manual) Monocytes % (Manual) Nucleated RBC % Seg Neutrophils # Seg Neutrophils # Man Lymphocytes # (Manual) Monocytes # (Manual) PT INR APTT D-Dimer Heparin Anti-Xa Level POC ABG pH POC ABG pCO2 POC ABG pO2 Sodium Potassium Chloride Carbon Dioxide BUN Creatinine Glucose POC Glucose 181 H 240 H 255 H Lactic Acid Calcium Phosphorus Total Bilirubin C-Reactive Protein NT-Pro-B Natriuret Pep Total Protein Albumin Urine WBC (Auto) Urine Creatinine 08/05/18 08/05/18 08/05/18 04:55 10:21 12:39 WBC 21.8 H RBC 3.18 L Hgb 10.3 L Hct 32.6 L MCV 103 H MCH 33 H MCHC RDW 16.3 H Plt Count Lymph % (Auto) [place] % (Auto) Lymph # [place] # Seg Neutrophils % Seg Neuts % (Manual) 88.0 H Lymphocytes % (Manual) 4.0 L Monocytes % (Manual) Nucleated RBC % Seg Neutrophils # Seg Neutrophils # Man 19.2 H Lymphocytes # (Manual) 0.9 L Monocytes # (Manual) PT INR APTT D-Dimer Heparin Anti-Xa Level POC ABG pH 7.506 H POC ABG pCO2 56.0 H POC ABG pO2 63 L Sodium Potassium Chloride Carbon Dioxide BUN Creatinine Glucose POC Glucose 227 H Lactic Acid Calcium Phosphorus Total Bilirubin C-Reactive Protein NT-Pro-B Natriuret Pep Total Protein Albumin Urine WBC (Auto) Urine Creatinine 08/05/18 08/05/18 08/05/18 12:39 14:10 17:30 WBC RBC Hgb Hct MCV MCH MCHC RDW Plt Count Lymph % (Auto) [place] % (Auto) Lymph # [place] # Seg Neutrophils % Seg Neuts % (Manual) Lymphocytes % (Manual) Monocytes % (Manual) Nucleated RBC % Seg Neutrophils # Seg Neutrophils # Man Lymphocytes # (Manual) Monocytes # (Manual) PT INR APTT D-Dimer Heparin Anti-Xa Level < 0.10 L POC ABG pH POC ABG pCO2 POC ABG pO2 Sodium Potassium Chloride 96.8 L Carbon Dioxide 38 H BUN 36 H Creatinine 0.6 L Glucose 218 H POC Glucose 221 H Lactic Acid Calcium Phosphorus Total Bilirubin C-Reactive Protein NT-Pro-B Natriuret Pep Total Protein Albumin Urine WBC (Auto) Urine Creatinine 08/05/18 08/05/18 08/06/18 18:32 23:32 02:26 WBC RBC Hgb Hct MCV MCH MCHC RDW Plt Count Lymph % (Auto) [place] % (Auto) Lymph # [place] # Seg Neutrophils % Seg Neuts % (Manual) Lymphocytes % (Manual) Monocytes % (Manual) Nucleated RBC % Seg Neutrophils # Seg Neutrophils # Man Lymphocytes # (Manual) Monocytes # (Manual) PT INR APTT D-Dimer Heparin Anti-Xa Level POC ABG pH POC ABG pCO2 POC ABG pO2 Sodium Potassium Chloride Carbon Dioxide BUN Creatinine Glucose POC Glucose 253 H 215 H 227 H Lactic Acid Calcium Phosphorus Total Bilirubin C-Reactive Protein NT-Pro-B Natriuret Pep Total Protein Albumin Urine WBC (Auto) Urine Creatinine 08/06/18 08/06/18 08/06/18 05:17 05:17 05:32 WBC 18.9 H RBC 3.06 L Hgb 10.2 L Hct 31.3 L MCV 102 H MCH 33 H MCHC RDW 16.1 H Plt Count Lymph % (Auto) [place] % (Auto) Lymph # [place] # Seg Neutrophils % Seg Neuts % (Manual) Lymphocytes % (Manual) Monocytes % (Manual) Nucleated RBC % Seg Neutrophils # Seg Neutrophils # Man Lymphocytes # (Manual) Monocytes # (Manual) PT INR APTT D-Dimer Heparin Anti-Xa Level POC ABG pH 7.468 H POC ABG pCO2 59.5 H POC ABG pO2 64 L Sodium Potassium Chloride Carbon Dioxide 37 H BUN 37 H Creatinine 0.5 L Glucose 226 H POC Glucose Lactic Acid Calcium Phosphorus Total Bilirubin C-Reactive Protein NT-Pro-B Natriuret Pep Total Protein Albumin Urine WBC (Auto) Urine Creatinine 08/06/18 08/06/18 08/06/18 10:11 15:03 17:48 WBC RBC Hgb Hct MCV MCH MCHC RDW Plt Count Lymph % (Auto) [place] % (Auto) Lymph # [place] # Seg Neutrophils % Seg Neuts % (Manual) Lymphocytes % (Manual) Monocytes % (Manual) Nucleated RBC % Seg Neutrophils # Seg Neutrophils # Man Lymphocytes # (Manual) Monocytes # (Manual) PT INR APTT D-Dimer Heparin Anti-Xa Level POC ABG pH POC ABG pCO2 POC ABG pO2 Sodium Potassium Chloride Carbon Dioxide BUN Creatinine Glucose POC Glucose 207 H 229 H 188 H Lactic Acid Calcium Phosphorus Total Bilirubin C-Reactive Protein NT-Pro-B Natriuret Pep Total Protein Albumin Urine WBC (Auto) Urine Creatinine 08/06/18 08/07/18 08/07/18 22:53 01:55 05:30 WBC RBC Hgb Hct MCV MCH MCHC RDW Plt Count Lymph % (Auto) [place] % (Auto) Lymph # [place] # Seg Neutrophils % Seg Neuts % (Manual) Lymphocytes % (Manual) Monocytes % (Manual) Nucleated RBC % Seg Neutrophils # Seg Neutrophils # Man Lymphocytes # (Manual) Monocytes # (Manual) PT INR APTT D-Dimer Heparin Anti-Xa Level POC ABG pH POC ABG pCO2 69.6 H POC ABG pO2 64 L Sodium Potassium Chloride Carbon Dioxide BUN Creatinine Glucose POC Glucose 146 H 143 H Lactic Acid Calcium Phosphorus Total Bilirubin C-Reactive Protein NT-Pro-B Natriuret Pep Total Protein Albumin Urine WBC (Auto) Urine Creatinine 08/07/18 08/07/18 08/07/18 09:59 14:16 15:08 WBC RBC Hgb 10.3 L Hct 32.2 L MCV MCH MCHC RDW Plt Count Lymph % (Auto) [place] % (Auto) Lymph # [place] # Seg Neutrophils % Seg Neuts % (Manual) Lymphocytes % (Manual) Monocytes % (Manual) Nucleated RBC % Seg Neutrophils # Seg Neutrophils # Man Lymphocytes # (Manual) Monocytes # (Manual) PT INR APTT D-Dimer Heparin Anti-Xa Level POC ABG pH POC ABG pCO2 POC ABG pO2 Sodium Potassium Chloride Carbon Dioxide BUN Creatinine Glucose POC Glucose 188 H 223 H Lactic Acid Calcium Phosphorus Total Bilirubin C-Reactive Protein NT-Pro-B Natriuret Pep Total Protein Albumin Urine WBC (Auto) Urine Creatinine 08/07/18 08/07/18 08/07/18 15:08 17:39 22:04 WBC RBC Hgb Hct MCV MCH MCHC RDW Plt Count Lymph % (Auto) [place] % (Auto) Lymph # [place] # Seg Neutrophils % Seg Neuts % (Manual) Lymphocytes % (Manual) Monocytes % (Manual) Nucleated RBC % Seg Neutrophils # Seg Neutrophils # Man Lymphocytes # (Manual) Monocytes # (Manual) PT INR APTT 23.2 L D-Dimer Heparin Anti-Xa Level POC ABG pH POC ABG pCO2 POC ABG pO2 Sodium Potassium Chloride Carbon Dioxide BUN Creatinine Glucose POC Glucose 208 H 163 H Lactic Acid Calcium Phosphorus Total Bilirubin C-Reactive Protein NT-Pro-B Natriuret Pep Total Protein Albumin Urine WBC (Auto) Urine Creatinine 08/07/18 08/08/18 08/08/18 22:30 01:57 02:09 WBC 14.6 H RBC 2.88 L Hgb 9.5 L Hct 29.9 L MCV 104 H MCH 33 H MCHC RDW 16.8 H Plt Count Lymph % (Auto) [place] % (Auto) Lymph # [place] # Seg Neutrophils % Seg Neuts % (Manual) 73.0 H Lymphocytes % (Manual) 9.0 L Monocytes % (Manual) 10.0 H Nucleated RBC % Seg Neutrophils # Seg Neutrophils # Man 10.7 H Lymphocytes # (Manual) Monocytes # (Manual) 1.5 H PT INR APTT D-Dimer Heparin Anti-Xa Level 0.25 L POC ABG pH POC ABG pCO2 POC ABG pO2 Sodium Potassium Chloride Carbon Dioxide BUN Creatinine Glucose POC Glucose 120 H Lactic Acid Calcium Phosphorus Total Bilirubin C-Reactive Protein NT-Pro-B Natriuret Pep Total Protein Albumin Urine WBC (Auto) Urine Creatinine 08/08/18 08/08/18 08/08/18 02:09 04:58 05:19 WBC RBC Hgb Hct MCV MCH MCHC RDW Plt Count Lymph % (Auto) [place] % (Auto) Lymph # [place] # Seg Neutrophils % Seg Neuts % (Manual) Lymphocytes % (Manual) Monocytes % (Manual) Nucleated RBC % Seg Neutrophils # Seg Neutrophils # Man Lymphocytes # (Manual) Monocytes # (Manual) PT INR APTT D-Dimer Heparin Anti-Xa Level POC ABG pH 7.461 H POC ABG pCO2 57.3 H POC ABG pO2 62 L Sodium Potassium Chloride Carbon Dioxide 39 H BUN 29 H Creatinine 0.5 L Glucose 124 H POC Glucose 139 H Lactic Acid Calcium Phosphorus Total Bilirubin C-Reactive Protein NT-Pro-B Natriuret Pep Total Protein Albumin Urine WBC (Auto) Urine Creatinine 08/08/18 08/08/18 08/08/18 10:22 14:52 16:12 WBC RBC Hgb Hct MCV MCH MCHC RDW Plt Count Lymph % (Auto) [place] % (Auto) Lymph # [place] # Seg Neutrophils % Seg Neuts % (Manual) Lymphocytes % (Manual) Monocytes % (Manual) Nucleated RBC % Seg Neutrophils # Seg Neutrophils # Man Lymphocytes # (Manual) Monocytes # (Manual) PT INR APTT D-Dimer Heparin Anti-Xa Level POC ABG pH POC ABG pCO2 POC ABG pO2 Sodium Potassium Chloride Carbon Dioxide BUN Creatinine Glucose POC Glucose 169 H 149 H 136 H Lactic Acid Calcium Phosphorus Total Bilirubin C-Reactive Protein NT-Pro-B Natriuret Pep Total Protein Albumin Urine WBC (Auto) Urine Creatinine 08/09/18 08/09/18 08/09/18 02:26 03:52 03:52 WBC 15.9 H RBC 2.87 L Hgb 9.6 L Hct 30.7 L MCV 107 H MCH 34 H MCHC 31 L RDW 17.8 H Plt Count Lymph % (Auto) 3.9 L [place] % (Auto) 8.1 H Lymph # 0.6 L [place] # 1.3 H Seg Neutrophils % 87.1 H Seg Neuts % (Manual) Lymphocytes % (Manual) Monocytes % (Manual) Nucleated RBC % Seg Neutrophils # 13.9 H Seg Neutrophils # Man Lymphocytes # (Manual) Monocytes # (Manual) PT INR APTT D-Dimer Heparin Anti-Xa Level 0.25 L POC ABG pH POC ABG pCO2 POC ABG pO2 Sodium Potassium Chloride Carbon Dioxide BUN Creatinine Glucose POC Glucose 126 H Lactic Acid Calcium Phosphorus Total Bilirubin C-Reactive Protein NT-Pro-B Natriuret Pep Total Protein Albumin Urine WBC (Auto) Urine Creatinine 08/09/18 08/09/18 08/09/18 03:52 05:34 06:48 WBC RBC Hgb Hct MCV MCH MCHC RDW Plt Count Lymph % (Auto) [place] % (Auto) Lymph # [place] # Seg Neutrophils % Seg Neuts % (Manual) Lymphocytes % (Manual) Monocytes % (Manual) Nucleated RBC % Seg Neutrophils # Seg Neutrophils # Man Lymphocytes # (Manual) Monocytes # (Manual) PT INR APTT D-Dimer Heparin Anti-Xa Level POC ABG pH POC ABG pCO2 57.5 H POC ABG pO2 58 L Sodium Potassium Chloride Carbon Dioxide 39 H BUN 26 H Creatinine 0.5 L Glucose 128 H POC Glucose 171 H Lactic Acid Calcium Phosphorus Total Bilirubin C-Reactive Protein NT-Pro-B Natriuret Pep Total Protein Albumin Urine WBC (Auto) Urine Creatinine 08/09/18 08/09/18 08/09/18 09:28 09:36 13:44 WBC RBC Hgb Hct MCV MCH MCHC RDW Plt Count Lymph % (Auto) [place] % (Auto) Lymph # [place] # Seg Neutrophils % Seg Neuts % (Manual) Lymphocytes % (Manual) Monocytes % (Manual) Nucleated RBC % Seg Neutrophils # Seg Neutrophils # Man Lymphocytes # (Manual) Monocytes # (Manual) PT INR APTT D-Dimer Heparin Anti-Xa Level 0.26 L POC ABG pH POC ABG pCO2 POC ABG pO2 Sodium Potassium Chloride Carbon Dioxide BUN Creatinine Glucose POC Glucose 183 H 184 H Lactic Acid Calcium Phosphorus Total Bilirubin C-Reactive Protein NT-Pro-B Natriuret Pep Total Protein Albumin Urine WBC (Auto) Urine Creatinine 08/09/18 08/10/18 08/10/18 17:55 04:49 05:20 WBC RBC Hgb Hct MCV MCH MCHC RDW Plt Count Lymph % (Auto) [place] % (Auto) Lymph # [place] # Seg Neutrophils % Seg Neuts % (Manual) Lymphocytes % (Manual) Monocytes % (Manual) Nucleated RBC % Seg Neutrophils # Seg Neutrophils # Man Lymphocytes # (Manual) Monocytes # (Manual) PT INR APTT D-Dimer Heparin Anti-Xa Level POC ABG pH POC ABG pCO2 59.9 H POC ABG pO2 59 L Sodium Potassium Chloride Carbon Dioxide BUN Creatinine Glucose POC Glucose 148 H 59 L Lactic Acid Calcium Phosphorus Total Bilirubin C-Reactive Protein NT-Pro-B Natriuret Pep Total Protein Albumin Urine WBC (Auto) Urine Creatinine 08/10/18 08/10/18 08/10/18 05:53 17:12 21:17 WBC RBC Hgb Hct MCV MCH MCHC RDW Plt Count Lymph % (Auto) [place] % (Auto) Lymph # [place] # Seg Neutrophils % Seg Neuts % (Manual) Lymphocytes % (Manual) Monocytes % (Manual) Nucleated RBC % Seg Neutrophils # Seg Neutrophils # Man Lymphocytes # (Manual) Monocytes # (Manual) PT INR APTT D-Dimer Heparin Anti-Xa Level POC ABG pH POC ABG pCO2 POC ABG pO2 Sodium Potassium Chloride Carbon Dioxide BUN Creatinine Glucose POC Glucose 128 H 110 H 109 H Lactic Acid Calcium Phosphorus Total Bilirubin C-Reactive Protein NT-Pro-B Natriuret Pep Total Protein Albumin Urine WBC (Auto) Urine Creatinine 08/11/18 08/11/18 08/11/18 00:54 02:28 04:17 WBC RBC Hgb 7.8 L Hct 24.1 L D MCV MCH MCHC RDW Plt Count Lymph % (Auto) [place] % (Auto) Lymph # [place] # Seg Neutrophils % Seg Neuts % (Manual) Lymphocytes % (Manual) Monocytes % (Manual) Nucleated RBC % Seg Neutrophils # Seg Neutrophils # Man Lymphocytes # (Manual) Monocytes # (Manual) PT INR APTT D-Dimer Heparin Anti-Xa Level 0.19 L POC ABG pH POC ABG pCO2 POC ABG pO2 Sodium Potassium Chloride Carbon Dioxide BUN Creatinine Glucose POC Glucose 124 H Lactic Acid Calcium Phosphorus Total Bilirubin C-Reactive Protein NT-Pro-B Natriuret Pep Total Protein Albumin Urine WBC (Auto) Urine Creatinine 08/11/18 08/11/18 08/11/18 05:10 07:42 10:27 WBC RBC Hgb Hct MCV MCH MCHC RDW Plt Count Lymph % (Auto) [place] % (Auto) Lymph # [place] # Seg Neutrophils % Seg Neuts % (Manual) Lymphocytes % (Manual) Monocytes % (Manual) Nucleated RBC % Seg Neutrophils # Seg Neutrophils # Man Lymphocytes # (Manual) Monocytes # (Manual) PT INR APTT D-Dimer Heparin Anti-Xa Level 0.20 L POC ABG pH POC ABG pCO2 POC ABG pO2 Sodium Potassium Chloride Carbon Dioxide BUN Creatinine Glucose POC Glucose 150 H 156 H Lactic Acid Calcium Phosphorus Total Bilirubin C-Reactive Protein NT-Pro-B Natriuret Pep Total Protein Albumin Urine WBC (Auto) Urine Creatinine 08/11/18 08/11/18 08/11/18 13:54 15:06 18:13 WBC RBC Hgb Hct MCV MCH MCHC RDW Plt Count Lymph % (Auto) [place] % (Auto) Lymph # [place] # Seg Neutrophils % Seg Neuts % (Manual) Lymphocytes % (Manual) Monocytes % (Manual) Nucleated RBC % Seg Neutrophils # Seg Neutrophils # Man Lymphocytes # (Manual) Monocytes # (Manual) PT INR APTT D-Dimer Heparin Anti-Xa Level POC ABG pH 7.471 H POC ABG pCO2 45.5 H POC ABG pO2 79 L Sodium Potassium Chloride Carbon Dioxide BUN Creatinine Glucose POC Glucose 177 H 143 H Lactic Acid Calcium Phosphorus Total Bilirubin C-Reactive Protein NT-Pro-B Natriuret Pep Total Protein Albumin Urine WBC (Auto) Urine Creatinine 08/11/18 08/11/18 08/11/18 18:33 21:22 Unknown WBC RBC Hgb Hct MCV MCH MCHC RDW Plt Count Lymph % (Auto) [place] % (Auto) Lymph # [place] # Seg Neutrophils % Seg Neuts % (Manual) Lymphocytes % (Manual) Monocytes % (Manual) Nucleated RBC % Seg Neutrophils # Seg Neutrophils # Man Lymphocytes # (Manual) Monocytes # (Manual) PT INR APTT D-Dimer Heparin Anti-Xa Level 0.29 L POC ABG pH POC ABG pCO2 POC ABG pO2 Sodium 136 L Potassium Chloride 96.5 L Carbon Dioxide 32 H D BUN Creatinine 0.5 L Glucose 186 H POC Glucose 151 H Lactic Acid Calcium Phosphorus Total Bilirubin C-Reactive Protein NT-Pro-B Natriuret Pep Total Protein Albumin Urine WBC (Auto) Urine Creatinine 08/11/18 08/12/18 08/12/18 Unknown 02:09 05:29 WBC 12.1 H RBC 2.50 L Hgb 8.2 L Hct 25.7 L MCV 103 H MCH 33 H MCHC RDW 17.0 H Plt Count Lymph % (Auto) 5.1 L [place] % (Auto) 9.5 H Lymph # 0.6 L [place] # 1.2 H Seg Neutrophils % 84.8 H Seg Neuts % (Manual) Lymphocytes % (Manual) Monocytes % (Manual) Nucleated RBC % Seg Neutrophils # 10.3 H Seg Neutrophils # Man Lymphocytes # (Manual) Monocytes # (Manual) PT INR APTT D-Dimer Heparin Anti-Xa Level POC ABG pH POC ABG pCO2 POC ABG pO2 Sodium Potassium Chloride Carbon Dioxide BUN Creatinine Glucose POC Glucose 159 H 136 H Lactic Acid Calcium Phosphorus Total Bilirubin C-Reactive Protein NT-Pro-B Natriuret Pep Total Protein Albumin Urine WBC (Auto) Urine Creatinine 08/12/18 08/12/18 08/12/18 07:33 09:59 13:59 WBC RBC Hgb Hct MCV MCH MCHC RDW Plt Count Lymph % (Auto) [place] % (Auto) Lymph # [place] # Seg Neutrophils % Seg Neuts % (Manual) Lymphocytes % (Manual) Monocytes % (Manual) Nucleated RBC % Seg Neutrophils # Seg Neutrophils # Man Lymphocytes # (Manual) Monocytes # (Manual) PT INR APTT D-Dimer Heparin Anti-Xa Level POC ABG pH POC ABG pCO2 POC ABG pO2 Sodium Potassium Chloride Carbon Dioxide BUN Creatinine Glucose POC Glucose 138 H 157 H 167 H Lactic Acid Calcium Phosphorus Total Bilirubin C-Reactive Protein NT-Pro-B Natriuret Pep Total Protein Albumin Urine WBC (Auto) Urine Creatinine 08/12/18 08/12/18 08/12/18 14:31 14:56 17:39 WBC RBC Hgb Hct MCV MCH MCHC RDW Plt Count Lymph % (Auto) [place] % (Auto) Lymph # [place] # Seg Neutrophils % Seg Neuts % (Manual) Lymphocytes % (Manual) Monocytes % (Manual) Nucleated RBC % Seg Neutrophils # Seg Neutrophils # Man Lymphocytes # (Manual) Monocytes # (Manual) PT INR APTT D-Dimer Heparin Anti-Xa Level 1.18 H POC ABG pH 7.466 H POC ABG pCO2 POC ABG pO2 58 L Sodium Potassium Chloride Carbon Dioxide BUN Creatinine Glucose POC Glucose 168 H Lactic Acid Calcium Phosphorus Total Bilirubin C-Reactive Protein NT-Pro-B Natriuret Pep Total Protein Albumin Urine WBC (Auto) Urine Creatinine 08/12/18 08/13/18 08/13/18 21:38 02:17 05:20 WBC RBC Hgb 8.0 L Hct 24.5 L MCV MCH MCHC RDW Plt Count Lymph % (Auto) [place] % (Auto) Lymph # [place] # Seg Neutrophils % Seg Neuts % (Manual) Lymphocytes % (Manual) Monocytes % (Manual) Nucleated RBC % Seg Neutrophils # Seg Neutrophils # Man Lymphocytes # (Manual) Monocytes # (Manual) PT INR APTT D-Dimer Heparin Anti-Xa Level POC ABG pH POC ABG pCO2 POC ABG pO2 Sodium Potassium Chloride Carbon Dioxide BUN Creatinine Glucose POC Glucose 168 H 157 H Lactic Acid Calcium Phosphorus Total Bilirubin C-Reactive Protein NT-Pro-B Natriuret Pep Total Protein Albumin Urine WBC (Auto) Urine Creatinine 08/13/18 08/13/18 08/13/18 09:28 10:07 14:09 WBC RBC Hgb Hct MCV MCH MCHC RDW Plt Count Lymph % (Auto) [place] % (Auto) Lymph # [place] # Seg Neutrophils % Seg Neuts % (Manual) Lymphocytes % (Manual) Monocytes % (Manual) Nucleated RBC % Seg Neutrophils # Seg Neutrophils # Man Lymphocytes # (Manual) Monocytes # (Manual) PT INR APTT D-Dimer Heparin Anti-Xa Level POC ABG pH 7.453 H POC ABG pCO2 47.5 H POC ABG pO2 Sodium Potassium Chloride Carbon Dioxide BUN Creatinine Glucose POC Glucose 177 H 178 H Lactic Acid Calcium Phosphorus Total Bilirubin C-Reactive Protein NT-Pro-B Natriuret Pep Total Protein Albumin Urine WBC (Auto) Urine Creatinine 08/13/18 08/13/18 08/14/18 17:33 21:28 01:58 WBC RBC Hgb Hct MCV MCH MCHC RDW Plt Count Lymph % (Auto) [place] % (Auto) Lymph # [place] # Seg Neutrophils % Seg Neuts % (Manual) Lymphocytes % (Manual) Monocytes % (Manual) Nucleated RBC % Seg Neutrophils # Seg Neutrophils # Man Lymphocytes # (Manual) Monocytes # (Manual) PT INR APTT D-Dimer Heparin Anti-Xa Level POC ABG pH POC ABG pCO2 POC ABG pO2 Sodium Potassium Chloride Carbon Dioxide BUN Creatinine Glucose POC Glucose 130 H 145 H 161 H Lactic Acid Calcium Phosphorus Total Bilirubin C-Reactive Protein NT-Pro-B Natriuret Pep Total Protein Albumin Urine WBC (Auto) Urine Creatinine 08/14/18 08/14/18 08/14/18 05:22 06:10 09:59 WBC RBC Hgb Hct MCV MCH MCHC RDW Plt Count Lymph % (Auto) [place] % (Auto) Lymph # [place] # Seg Neutrophils % Seg Neuts % (Manual) Lymphocytes % (Manual) Monocytes % (Manual) Nucleated RBC % Seg Neutrophils # Seg Neutrophils # Man Lymphocytes # (Manual) Monocytes # (Manual) PT INR APTT D-Dimer Heparin Anti-Xa Level POC ABG pH POC ABG pCO2 POC ABG pO2 Sodium Potassium Chloride Carbon Dioxide BUN Creatinine 0.5 L Glucose 125 H POC Glucose 117 H 107 H Lactic Acid Calcium Phosphorus Total Bilirubin C-Reactive Protein NT-Pro-B Natriuret Pep Total Protein Albumin Urine WBC (Auto) Urine Creatinine 08/14/18 08/14/18 08/14/18 14:04 17:49 21:27 WBC RBC Hgb Hct MCV MCH MCHC RDW Plt Count Lymph % (Auto) [place] % (Auto) Lymph # [place] # Seg Neutrophils % Seg Neuts % (Manual) Lymphocytes % (Manual) Monocytes % (Manual) Nucleated RBC % Seg Neutrophils # Seg Neutrophils # Man Lymphocytes # (Manual) Monocytes # (Manual) PT INR APTT D-Dimer Heparin Anti-Xa Level POC ABG pH POC ABG pCO2 POC ABG pO2 Sodium Potassium Chloride Carbon Dioxide BUN Creatinine Glucose POC Glucose 137 H 150 H 149 H Lactic Acid Calcium Phosphorus Total Bilirubin C-Reactive Protein NT-Pro-B Natriuret Pep Total Protein Albumin Urine WBC (Auto) Urine Creatinine 08/14/18 08/15/18 08/15/18 21:55 01:50 03:12 WBC 13.3 H RBC 2.79 L Hgb 9.3 L 8.4 L Hct 28.6 L 25.7 L MCV 102 H MCH 33 H MCHC RDW 16.6 H Plt Count Lymph % (Auto) [place] % (Auto) Lymph # [place] # Seg Neutrophils % Seg Neuts % (Manual) Lymphocytes % (Manual) Monocytes % (Manual) Nucleated RBC % Seg Neutrophils # Seg Neutrophils # Man Lymphocytes # (Manual) Monocytes # (Manual) PT INR APTT D-Dimer Heparin Anti-Xa Level POC ABG pH POC ABG pCO2 POC ABG pO2 Sodium Potassium Chloride Carbon Dioxide BUN Creatinine Glucose POC Glucose 186 H Lactic Acid Calcium Phosphorus Total Bilirubin C-Reactive Protein NT-Pro-B Natriuret Pep Total Protein Albumin Urine WBC (Auto) Urine Creatinine 08/15/18 08/15/18 08/15/18 09:55 11:45 13:47 WBC RBC 2.38 L Hgb 8.0 L Hct 24.5 L MCV 103 H MCH 34 H MCHC RDW 16.8 H Plt Count Lymph % (Auto) 4.9 L [place] % (Auto) Lymph # 0.5 L [place] # Seg Neutrophils % 88.1 H Seg Neuts % (Manual) Lymphocytes % (Manual) Monocytes % (Manual) Nucleated RBC % Seg Neutrophils # 9.6 H Seg Neutrophils # Man Lymphocytes # (Manual) Monocytes # (Manual) PT INR APTT D-Dimer Heparin Anti-Xa Level POC ABG pH POC ABG pCO2 POC ABG pO2 Sodium Potassium Chloride Carbon Dioxide BUN Creatinine Glucose POC Glucose 133 H 142 H Lactic Acid Calcium Phosphorus Total Bilirubin C-Reactive Protein NT-Pro-B Natriuret Pep Total Protein Albumin Urine WBC (Auto) Urine Creatinine 08/15/18 08/15/18 08/16/18 17:54 21:58 02:20 WBC RBC Hgb Hct MCV MCH MCHC RDW Plt Count Lymph % (Auto) [place] % (Auto) Lymph # [place] # Seg Neutrophils % Seg Neuts % (Manual) Lymphocytes % (Manual) Monocytes % (Manual) Nucleated RBC % Seg Neutrophils # Seg Neutrophils # Man Lymphocytes # (Manual) Monocytes # (Manual) PT INR APTT D-Dimer Heparin Anti-Xa Level POC ABG pH POC ABG pCO2 POC ABG pO2 Sodium Potassium Chloride Carbon Dioxide BUN Creatinine Glucose POC Glucose 131 H 157 H 108 H Lactic Acid Calcium Phosphorus Total Bilirubin C-Reactive Protein NT-Pro-B Natriuret Pep Total Protein Albumin Urine WBC (Auto) Urine Creatinine 08/16/18 08/16/18 08/16/18 05:16 10:20 10:23 WBC RBC Hgb Hct MCV MCH MCHC RDW Plt Count Lymph % (Auto) [place] % (Auto) Lymph # [place] # Seg Neutrophils % Seg Neuts % (Manual) Lymphocytes % (Manual) Monocytes % (Manual) Nucleated RBC % Seg Neutrophils # Seg Neutrophils # Man Lymphocytes # (Manual) Monocytes # (Manual) PT INR APTT D-Dimer Heparin Anti-Xa Level POC ABG pH POC ABG pCO2 POC ABG pO2 63 L Sodium Potassium Chloride Carbon Dioxide BUN Creatinine Glucose POC Glucose 115 H 146 H Lactic Acid Calcium Phosphorus Total Bilirubin C-Reactive Protein NT-Pro-B Natriuret Pep Total Protein Albumin Urine WBC (Auto) Urine Creatinine 08/16/18 08/16/18 08/16/18 11:06 14:05 18:04 WBC RBC 2.82 L Hgb 9.2 L Hct 28.8 L MCV 102 H MCH 33 H MCHC RDW 16.4 H Plt Count Lymph % (Auto) 3.8 L [place] % (Auto) Lymph # 0.4 L [place] # Seg Neutrophils % 89.5 H Seg Neuts % (Manual) Lymphocytes % (Manual) Monocytes % (Manual) Nucleated RBC % Seg Neutrophils # 9.1 H Seg Neutrophils # Man Lymphocytes # (Manual) Monocytes # (Manual) PT INR APTT D-Dimer Heparin Anti-Xa Level POC ABG pH POC ABG pCO2 POC ABG pO2 Sodium Potassium Chloride Carbon Dioxide BUN Creatinine Glucose POC Glucose 139 H 144 H Lactic Acid Calcium Phosphorus Total Bilirubin C-Reactive Protein NT-Pro-B Natriuret Pep Total Protein Albumin Urine WBC (Auto) Urine Creatinine 08/16/18 08/17/18 08/17/18 21:50 03:51 04:59 WBC RBC Hgb Hct MCV MCH MCHC RDW Plt Count Lymph % (Auto) [place] % (Auto) Lymph # [place] # Seg Neutrophils % Seg Neuts % (Manual) Lymphocytes % (Manual) Monocytes % (Manual) Nucleated RBC % Seg Neutrophils # Seg Neutrophils # Man Lymphocytes # (Manual) Monocytes # (Manual) PT INR APTT D-Dimer Heparin Anti-Xa Level POC ABG pH POC ABG pCO2 POC ABG pO2 Sodium Potassium Chloride Carbon Dioxide BUN Creatinine 0.5 L Glucose 134 H POC Glucose 147 H 135 H Lactic Acid Calcium Phosphorus Total Bilirubin C-Reactive Protein NT-Pro-B Natriuret Pep Total Protein Albumin Urine WBC (Auto) Urine Creatinine 08/17/18 08/17/18 08/17/18 12:07 18:04 21:38 WBC RBC Hgb Hct MCV MCH MCHC RDW Plt Count Lymph % (Auto) [place] % (Auto) Lymph # [place] # Seg Neutrophils % Seg Neuts % (Manual) Lymphocytes % (Manual) Monocytes % (Manual) Nucleated RBC % Seg Neutrophils # Seg Neutrophils # Man Lymphocytes # (Manual) Monocytes # (Manual) PT INR APTT D-Dimer Heparin Anti-Xa Level POC ABG pH POC ABG pCO2 55.6 H POC ABG pO2 65 L Sodium Potassium Chloride Carbon Dioxide BUN Creatinine Glucose POC Glucose 160 H 115 H Lactic Acid Calcium Phosphorus Total Bilirubin C-Reactive Protein NT-Pro-B Natriuret Pep Total Protein Albumin Urine WBC (Auto) Urine Creatinine 08/17/18 08/18/18 08/18/18 21:47 01:42 05:42 WBC RBC Hgb Hct MCV MCH MCHC RDW Plt Count Lymph % (Auto) [place] % (Auto) Lymph # [place] # Seg Neutrophils % Seg Neuts % (Manual) Lymphocytes % (Manual) Monocytes % (Manual) Nucleated RBC % Seg Neutrophils # Seg Neutrophils # Man Lymphocytes # (Manual) Monocytes # (Manual) PT INR APTT D-Dimer Heparin Anti-Xa Level POC ABG pH POC ABG pCO2 POC ABG pO2 Sodium Potassium Chloride Carbon Dioxide BUN Creatinine Glucose POC Glucose 110 H 124 H 127 H Lactic Acid Calcium Phosphorus Total Bilirubin C-Reactive Protein NT-Pro-B Natriuret Pep Total Protein Albumin Urine WBC (Auto) Urine Creatinine 08/18/18 08/18/18 08/18/18 09:51 14:37 21:37 WBC RBC Hgb Hct MCV MCH MCHC RDW Plt Count Lymph % (Auto) [place] % (Auto) Lymph # [place] # Seg Neutrophils % Seg Neuts % (Manual) Lymphocytes % (Manual) Monocytes % (Manual) Nucleated RBC % Seg Neutrophils # Seg Neutrophils # Man Lymphocytes # (Manual) Monocytes # (Manual) PT INR APTT D-Dimer Heparin Anti-Xa Level POC ABG pH POC ABG pCO2 POC ABG pO2 Sodium Potassium Chloride Carbon Dioxide BUN Creatinine Glucose POC Glucose 162 H 130 H 133 H Lactic Acid Calcium Phosphorus Total Bilirubin C-Reactive Protein NT-Pro-B Natriuret Pep Total Protein Albumin Urine WBC (Auto) Urine Creatinine 08/19/18 08/19/18 08/19/18 01:47 04:55 04:55 WBC RBC 2.86 L Hgb 9.4 L Hct 28.6 L MCV 100 H MCH 33 H MCHC RDW 16.6 H Plt Count Lymph % (Auto) [place] % (Auto) Lymph # [place] # Seg Neutrophils % Seg Neuts % (Manual) Lymphocytes % (Manual) Monocytes % (Manual) Nucleated RBC % Seg Neutrophils # Seg Neutrophils # Man Lymphocytes # (Manual) Monocytes # (Manual) PT INR APTT D-Dimer Heparin Anti-Xa Level POC ABG pH POC ABG pCO2 POC ABG pO2 Sodium Potassium Chloride 97.8 L Carbon Dioxide 32 H BUN Creatinine 0.4 L Glucose 116 H POC Glucose 136 H Lactic Acid Calcium Phosphorus Total Bilirubin C-Reactive Protein NT-Pro-B Natriuret Pep Total Protein Albumin Urine WBC (Auto) Urine Creatinine 08/19/18 08/19/18 08/19/18 05:16 05:41 11:49 WBC RBC Hgb Hct MCV MCH MCHC RDW Plt Count Lymph % (Auto) [place] % (Auto) Lymph # [place] # Seg Neutrophils % Seg Neuts % (Manual) Lymphocytes % (Manual) Monocytes % (Manual) Nucleated RBC % Seg Neutrophils # Seg Neutrophils # Man Lymphocytes # (Manual) Monocytes # (Manual) PT INR APTT D-Dimer Heparin Anti-Xa Level POC ABG pH POC ABG pCO2 57.5 H POC ABG pO2 65 L Sodium Potassium Chloride Carbon Dioxide BUN Creatinine Glucose POC Glucose 119 H 143 H Lactic Acid Calcium Phosphorus Total Bilirubin C-Reactive Protein NT-Pro-B Natriuret Pep Total Protein Albumin Urine WBC (Auto) Urine Creatinine 08/19/18 08/19/18 08/20/18 15:13 21:45 06:03 WBC RBC Hgb Hct MCV MCH MCHC RDW Plt Count Lymph % (Auto) [place] % (Auto) Lymph # [place] # Seg Neutrophils % Seg Neuts % (Manual) Lymphocytes % (Manual) Monocytes % (Manual) Nucleated RBC % Seg Neutrophils # Seg Neutrophils # Man Lymphocytes # (Manual) Monocytes # (Manual) PT INR APTT D-Dimer Heparin Anti-Xa Level POC ABG pH POC ABG pCO2 POC ABG pO2 Sodium Potassium Chloride Carbon Dioxide BUN Creatinine Glucose POC Glucose 155 H 127 H 160 H Lactic Acid Calcium Phosphorus Total Bilirubin C-Reactive Protein NT-Pro-B Natriuret Pep Total Protein Albumin Urine WBC (Auto) Urine Creatinine 08/20/18 08/20/18 08/21/18 12:00 22:10 05:32 WBC RBC Hgb Hct MCV MCH MCHC RDW Plt Count Lymph % (Auto) [place] % (Auto) Lymph # [place] # Seg Neutrophils % Seg Neuts % (Manual) Lymphocytes % (Manual) Monocytes % (Manual) Nucleated RBC % Seg Neutrophils # Seg Neutrophils # Man Lymphocytes # (Manual) Monocytes # (Manual) PT INR APTT D-Dimer Heparin Anti-Xa Level POC ABG pH POC ABG pCO2 POC ABG pO2 Sodium Potassium Chloride Carbon Dioxide BUN Creatinine Glucose POC Glucose 143 H 125 H 121 H Lactic Acid Calcium Phosphorus Total Bilirubin C-Reactive Protein NT-Pro-B Natriuret Pep Total Protein Albumin Urine WBC (Auto) Urine Creatinine 08/21/18 08/21/18 08/22/18 17:37 22:19 05:30 WBC RBC Hgb Hct MCV MCH MCHC RDW Plt Count Lymph % (Auto) [place] % (Auto) Lymph # [place] # Seg Neutrophils % Seg Neuts % (Manual) Lymphocytes % (Manual) Monocytes % (Manual) Nucleated RBC % Seg Neutrophils # Seg Neutrophils # Man Lymphocytes # (Manual) Monocytes # (Manual) PT INR APTT D-Dimer Heparin Anti-Xa Level POC ABG pH POC ABG pCO2 POC ABG pO2 Sodium Potassium Chloride Carbon Dioxide BUN Creatinine Glucose POC Glucose 126 H 129 H 147 H Lactic Acid Calcium Phosphorus Total Bilirubin C-Reactive Protein NT-Pro-B Natriuret Pep Total Protein Albumin Urine WBC (Auto) Urine Creatinine 08/22/18 08/22/18 08/23/18 16:22 21:31 04:37 WBC RBC Hgb Hct MCV MCH MCHC RDW Plt Count Lymph % (Auto) [place] % (Auto) Lymph # [place] # Seg Neutrophils % Seg Neuts % (Manual) Lymphocytes % (Manual) Monocytes % (Manual) Nucleated RBC % Seg Neutrophils # Seg Neutrophils # Man Lymphocytes # (Manual) Monocytes # (Manual) PT INR APTT D-Dimer Heparin Anti-Xa Level POC ABG pH POC ABG pCO2 POC ABG pO2 Sodium Potassium Chloride Carbon Dioxide BUN Creatinine 0.5 L Glucose 141 H POC Glucose 141 H 107 H Lactic Acid Calcium Phosphorus Total Bilirubin C-Reactive Protein NT-Pro-B Natriuret Pep Total Protein Albumin Urine WBC (Auto) Urine Creatinine 08/23/18 08/24/18 08/24/18 04:37 05:31 13:56 WBC RBC 2.94 L Hgb 9.7 L Hct 30.0 L MCV 102 H MCH 33 H MCHC RDW 17.0 H Plt Count 509 H Lymph % (Auto) [place] % (Auto) Lymph # [place] # Seg Neutrophils % Seg Neuts % (Manual) Lymphocytes % (Manual) Monocytes % (Manual) Nucleated RBC % Seg Neutrophils # Seg Neutrophils # Man Lymphocytes # (Manual) Monocytes # (Manual) PT INR APTT D-Dimer Heparin Anti-Xa Level POC ABG pH POC ABG pCO2 POC ABG pO2 Sodium Potassium Chloride Carbon Dioxide BUN Creatinine Glucose POC Glucose 136 H 143 H Lactic Acid Calcium Phosphorus Total Bilirubin C-Reactive Protein NT-Pro-B Natriuret Pep Total Protein Albumin Urine WBC (Auto) Urine Creatinine 08/24/18 08/25/18 08/26/18 21:42 06:35 07:59 WBC RBC Hgb Hct MCV MCH MCHC RDW Plt Count Lymph % (Auto) [place] % (Auto) Lymph # [place] # Seg Neutrophils % Seg Neuts % (Manual) Lymphocytes % (Manual) Monocytes % (Manual) Nucleated RBC % Seg Neutrophils # Seg Neutrophils # Man Lymphocytes # (Manual) Monocytes # (Manual) PT INR APTT D-Dimer Heparin Anti-Xa Level POC ABG pH POC ABG pCO2 POC ABG pO2 Sodium Potassium Chloride Carbon Dioxide BUN Creatinine Glucose POC Glucose 107 H 119 H 125 H Lactic Acid Calcium Phosphorus Total Bilirubin C-Reactive Protein NT-Pro-B Natriuret Pep Total Protein Albumin Urine WBC (Auto) Urine Creatinine 08/26/18 08/26/18 08/26/18 12:23 17:06 21:26 WBC RBC Hgb Hct MCV MCH MCHC RDW Plt Count Lymph % (Auto) [place] % (Auto) Lymph # [place] # Seg Neutrophils % Seg Neuts % (Manual) Lymphocytes % (Manual) Monocytes % (Manual) Nucleated RBC % Seg Neutrophils # Seg Neutrophils # Man Lymphocytes # (Manual) Monocytes # (Manual) PT INR APTT D-Dimer Heparin Anti-Xa Level POC ABG pH POC ABG pCO2 POC ABG pO2 Sodium Potassium Chloride Carbon Dioxide BUN Creatinine Glucose POC Glucose 126 H 123 H 112 H Lactic Acid Calcium Phosphorus Total Bilirubin C-Reactive Protein NT-Pro-B Natriuret Pep Total Protein Albumin Urine WBC (Auto) Urine Creatinine 08/27/18 08/27/18 08/27/18 07:38 15:29 21:17 WBC RBC Hgb Hct MCV MCH MCHC RDW Plt Count Lymph % (Auto) [place] % (Auto) Lymph # [place] # Seg Neutrophils % Seg Neuts % (Manual) Lymphocytes % (Manual) Monocytes % (Manual) Nucleated RBC % Seg Neutrophils # Seg Neutrophils # Man Lymphocytes # (Manual) Monocytes # (Manual) PT INR APTT D-Dimer Heparin Anti-Xa Level POC ABG pH POC ABG pCO2 POC ABG pO2 Sodium Potassium Chloride Carbon Dioxide BUN Creatinine Glucose POC Glucose 162 H 141 H 125 H Lactic Acid Calcium Phosphorus Total Bilirubin C-Reactive Protein NT-Pro-B Natriuret Pep Total Protein Albumin Urine WBC (Auto) Urine Creatinine 08/28/18 08/28/18 08/28/18 05:56 14:05 21:47 WBC RBC Hgb Hct MCV MCH MCHC RDW Plt Count Lymph % (Auto) [place] % (Auto) Lymph # [place] # Seg Neutrophils % Seg Neuts % (Manual) Lymphocytes % (Manual) Monocytes % (Manual) Nucleated RBC % Seg Neutrophils # Seg Neutrophils # Man Lymphocytes # (Manual) Monocytes # (Manual) PT INR APTT D-Dimer Heparin Anti-Xa Level POC ABG pH POC ABG pCO2 POC ABG pO2 Sodium Potassium Chloride Carbon Dioxide BUN Creatinine Glucose POC Glucose 130 H 117 H 112 H Lactic Acid Calcium Phosphorus Total Bilirubin C-Reactive Protein NT-Pro-B Natriuret Pep Total Protein Albumin Urine WBC (Auto) Urine Creatinine 08/29/18 08/29/18 08/30/18 12:04 21:44 07:28 WBC RBC Hgb Hct MCV MCH MCHC RDW Plt Count Lymph % (Auto) [place] % (Auto) Lymph # [place] # Seg Neutrophils % Seg Neuts % (Manual) Lymphocytes % (Manual) Monocytes % (Manual) Nucleated RBC % Seg Neutrophils # Seg Neutrophils # Man Lymphocytes # (Manual) Monocytes # (Manual) PT INR APTT D-Dimer Heparin Anti-Xa Level POC ABG pH POC ABG pCO2 POC ABG pO2 Sodium Potassium Chloride Carbon Dioxide BUN Creatinine Glucose POC Glucose 160 H 115 H 118 H Lactic Acid Calcium Phosphorus Total Bilirubin C-Reactive Protein NT-Pro-B Natriuret Pep Total Protein Albumin Urine WBC (Auto) Urine Creatinine Allied health notes reviewed: nursing
== END 2018-08-30 18:30 | DRG 4 ==
LOC: ED 11:45 → CC1 15:59 → IMCU 08-20 16:54 → 3A 08-24 15:59
PROVIDERS: ADMIT Internal Medicine; ATTEND Internal Medicine
PROC: 5A1955Z Respiratory Ventilation, Greater than 96 Consecutive Hours (ICD-10-PCS; principal; 2018-07-27)
PROC: 0BH17EZ Insertion of Endotracheal Airway into Trachea, Via Natural or Artificial Opening (ICD-10-PCS; 2018-07-27)
PROC: 4A033R1 Measurement of Arterial Saturation, Peripheral, Percutaneous Approach (ICD-10-PCS; 2018-07-27)
PROC: 0TJB8ZZ Inspection of Bladder, Via Natural or Artificial Opening Endoscopic (ICD-10-PCS; 2018-08-05)
PROC: BT1B1ZZ Fluoroscopy of Bladder and Urethra using Low Osmolar Contrast (ICD-10-PCS; 2018-08-05)
PROC: 0B113F4 Bypass Trachea to Cutaneous with Tracheostomy Device, Percutaneous Approach (ICD-10-PCS; 2018-08-10)
PROC: 0DH63UZ Insertion of Feeding Device into Stomach, Percutaneous Approach (ICD-10-PCS; 2018-08-10)
PROC: 0B978ZZ Drainage of Left Main Bronchus, Via Natural or Artificial Opening Endoscopic (ICD-10-PCS; 2018-08-10)
PROC: 0B938ZZ Drainage of Right Main Bronchus, Via Natural or Artificial Opening Endoscopic (ICD-10-PCS; 2018-08-10)
DX: A40.8 Other streptococcal sepsis (principal); J96.01 Acute respiratory failure with hypoxia; N17.0 Acute kidney failure with tubular necrosis; J18.1 Lobar pneumonia, unspecified organism; I50.21 Acute systolic (congestive) heart failure; J44.1 Chronic obstructive pulmonary disease with (acute) exacerbation; I48.1 Persistent atrial fibrillation; E87.4 Mixed disorder of acid-base balance; E87.0 Hyperosmolality and hypernatremia; D62 Acute posthemorrhagic anemia; N35.919 Unspecified urethral stricture, male, unspecified site; G40.909 Epilepsy, unspecified, not intractable, without status epilepticus; Z85.828 Personal history of other malignant neoplasm of skin; Z79.82 Long term (current) use of aspirin; Z79.899 Other long term (current) drug therapy; I11.0 Hypertensive heart disease with heart failure; Z99.81 Dependence on supplemental oxygen; I25.10 Atherosclerotic heart disease of native coronary artery without angina pectoris; E78.2 Mixed hyperlipidemia; E87.5 Hyperkalemia; Z86.718 Personal history of other venous thrombosis and embolism; M19.90 Unspecified osteoarthritis, unspecified site; Z87.891 Personal history of nicotine dependence; I70.219 Atherosclerosis of native arteries of extremities with intermittent claudication, unspecified extremity; R31.0 Gross hematuria; Z78.1 Physical restraint status
CPT/HCPCS: 36415; 36600; 71045; 74018; 74430; 76770; 80048; 80053; 80202; 81001; 82140; 82570; 82803; 82962; 83735; 83880; 84100; 84300; 84439; 84443; 84478; 84484; 85007; 85014; 85018; 85025; 85027; 85049; 85379; 85520; 85610; 85730; 86140; 87040; 87070; 87076; 87086; 87103; 87186; 87205; 93005; 93010; 93312; 93320; 93325; 94002; 94003; 94640; 94760; G0378; A4217; A9270-GY; G8978-GP; G8979-GP; J0282; J0330; J0456; J0692; J0696; J1205; J1630; J1644; J1815; J1940; J2370; J2704; J2920; J3010; J3370; J7030; J7040; J7050; J7060; J7512; Q9967

== ENCOUNTER 2018-08-30 15:26 | Inpatient (IN) | payer BC, MEDICARE ==
[2018-08-30] MEDS ORDERED: D50W (25GM) Syringe IV PRN (16:23)
[2018-08-30] MEDS ORDERED: SODIUM BICARBONATE FEEDTUBE PRN (16:43)
[2018-08-30] MEDS ORDERED: PANCREAZE DR 10,500 UNIT FEEDTUBE PRN ×2 (16:43→16:54)
[2018-08-30] MEDS ORDERED: SIMPLE SYRUP FEEDTUBE PRN ×2 (16:43)
[2018-08-30] MEDS ORDERED: ARTIFICIAL TEARS OPHTH OINT OU PRN (16:54)
[2018-08-30] MEDS ORDERED: VASELINE LIP THERAPY TP PRN (16:54)
--- NOTE | 2018-08-30 19:02 | History and Physical Report ---
History of Present Illness Date: 08/30/18 Referring Facility: [facility] Chief Complaint: Debility History of present illness: 73-year-old male who experienced two days of shortness of breath and palpitations prior to reporting to the his ward aide. After evaluation by his ward aide he was admitted to [facility]. He was found to have atrial fibrillation with RVR, which was refractory to Cardizem drip but improved with amiodarone drip. He developed an acute hypoxemic respiratory failure and was admitted to the ICU and intubated. Patient had a complicated course which included the need for trach/PEG. He developed sepsis and pneumonia which were treated with antibiotics. Osborne was inserted by urology due to obstructive uropathy and a urethral stricture and is to remain in place. He remains on trach with blow by O2. After he was stabilized he was transferred for further rehab on 08/30/2018. was present for evaluation. All questions were answered. Past History Past Medical History: cancer, COPD, hypertension, PVD Past Surgical History: Other (PV bypass and stents) Social history: , lives with family, other (Former EtOH and Tobacco, denies illicits. Independent, working, driving.) Family history: cancer, diabetes, stroke Medications and Allergies Allergies Allergy/AdvReac Type Severity Reaction Status Date / Time No Known Allergies Allergy Verified 12/12/13 06:46 Home Medications Medication Instructions Recorded Confirmed Last Taken Type Pravastatin Sodium 40 mg PO DAILY 12/12/13 07/27/18 07/27/18 History Fluticasone/Salmeterol [Advair 1 puff IH BID 12/31/15 07/27/18 07/27/18 History Diskus 250-50 mcg] ALBUTEROL Inhaler (OR & NICU) 2 puff IH QID PRN 07/27/18 07/27/18 Unknown History [ProAir HFA Inhaler] Aspirin [Aspirin BABY CHEW TAB] 81 mg PO DAILY 07/27/18 07/27/18 07/27/18 History Cyanocobalamin (Vitamin B-12) 2,500 mcg PO DAILY 07/27/18 07/27/18 07/27/18 History [Vitamin B12] [place]-3S/Dha/Epa/Fish Oil/D3 [Fish 1 each PO DAILY 07/27/18 07/27/18 07/27/18 History Wom-Wqtor-6-Vit D Softgel] Amiodarone [Cordarone 200 MG TAB] 200 mg PO BID tablet 08/30/18 Unknown Rx Apixaban [Eliquis] 5 mg PO Q12HR tablet 08/30/18 Unknown Rx Arformoterol Nebu [Brovana Nebu] 15 mcg IH Q12HRT ml 08/30/18 Unknown Rx Budesonide [Pulmicort Respules] 0.5 mg IH Q12HRT nebu 08/30/18 Unknown Rx Cyanocobalamin [Vitamin B-12] 2,500 mcg PO QDAY tablet 08/30/18 Unknown Rx Famotidine [Pepcid] 20 mg PO BID tablet 08/30/18 Unknown Rx Insulin Glargine [Lantus VIAL] 20 units SUB-Q QHS units 08/30/18 Unknown Rx Lipase/Protease/Amylase [Pancreaze 1 each FEEDTUBE PRN PRN capsule 08/30/18 Unknown Rx 10,500 Unit] Lispro Insulin [Humalog] 0 unit SUB-Q Q8HR units 08/30/18 Unknown Rx Min Oil/Petrolatum [Artificial 1 applic OU Q4HR PRN tube 08/30/18 Unknown Rx Tears Ophth Oint] Petrolatum,White [Vaseline Lip 1 applic TP Q2HR PRN tube 08/30/18 Unknown Rx Therapy] Quetiapine Fumarate [Seroquel] 100 mg PO HS #30 tablet 08/30/18 Unknown Rx Active Meds: Active Medications Amiodarone HCl (Cordarone) 200 mg FEEDTUBE BID IGNACIO Lipase/Protease/Amylase (Pancreaze Dr 10,500 Unit) 1 each FEEDTUBE PRN PRN PRN Reason: For Clogged Feeding Tube Apixaban (Eliquis) 5 mg FEEDTUBE Q12HR IGNACIO; Protocol Arformoterol Tartrate (Brovana Nebu) 15 mcg IH Q12HRT IGNACIO Budesonide (Pulmicort) 0.5 mg IH Q12HRT IGNACIO Cyanocobalamin (Vitamin B-12) 2,000 mcg FEEDTUBE QDAY IGNACIO Dextrose (D50w (25gm) Syringe) 50 ml IV PRN PRN PRN Reason: Hypoglycemia Famotidine (Pepcid) 20 mg FEEDTUBE BID IGNACIO Hydrophilic Ointment (Vaseline Lip Therapy) 1 applic TP Q2HR PRN PRN Reason: Dry Lips Insulin Glargine (Lantus) 20 units SUB-Q QHS IGNACIO Insulin Human Lispro (Humalog) 0 unit SUB-Q Q6HR IGNACIO; Protocol Multi-Ingred Cream/Lotion/Oil/Oint (Artificial Tears Ophth Oint) 1 applic OU Q4HR PRN PRN Reason: Dry Eye(s) Pravastatin Sodium (Pravachol) 40 mg FEEDTUBE DAILY IGNACIO Quetiapine Fumarate (Seroquel) 100 mg FEEDTUBE HS IGNACIO Simple Syrup (Simple Syrup) 15 ml FEEDTUBE PRN PRN PRN Reason: Hypoglycemia Simple Syrup (Simple Syrup) 30 ml FEEDTUBE PRN PRN PRN Reason: Hypoglycemia Sodium Bicarbonate (Sodium Bicarbonate) 325 mg FEEDTUBE PRN PRN PRN Reason: For Clogged Feeding Tube Review of Systems All systems: negative (10 systems reviewed and NEG except as noted) Constitutional: fatigue, weakness Ears, nose, mouth and throat: hoarseness, voice changes, other (Trach with PMV) Cardiovascular: dyspnea on exertion Respiratory: cough, congestion Gastrointestinal: other (PEG, NPO) Genitourinary Male: other (Osborne) Musculoskeletal: gait dysfunction Exam - Exam Narrative exam: MUSCULOSKELETAL SPECIALTY EXAM Constitutional: Well developed, well nourished, appropriately groomed Lymphatic: No appreciable abnormalities palpable in neck EENT: Visual brooks full to confrontation. EOMI. Trach in place with PMV. Hearing intact to finger rustle Respiratory: Rhonchi on ascultation bilaterally, no increased work of breathing, on T tube. Cardiovascular Regular Rate/ Rhythm, no swelling edema or tenderness in all 4 extremities. Puls es palpable in all 4 extremities. All 4 extremities warm. GI : + bowel sounds, soft, NTTP, nondistended, PEG : Osborne INTEGUMENTARY Normal in all 4 extremities, scars on LE Musuloskeletal BUE and BLE normal without defect, crepitus, sublux, effusion, or TTP. BUE and BLE 4-/5, adequate ROM with normal tone. NEURO: CN 2-12 grossly intact. Sensation intact in all extremities. Reflexes 2+ at biceps, brachioradialis and patella. No clonus. Coordination intact. No tremor noted. POSTURE and GAIT: Examined in bed. Deferred until examined with therapy for safety. PSYCH: Alert, orientated x3, affect appears normal. Insight appears intact. Assessment and Plan Assessment and plan: Patient was assessed and evaluated for Acute Inpatient Rehab Unit. Due to the patients above-mentioned medical complexity, along with decreased functional mobility and self care, this patient continues to require and be appropriate for a comprehensive, multidisciplinary [id number] rehabilitation program. These needs cannot be met in an outpatient or other less intensive setting. The patient would continue to benefit from skilled therapy intervention for at least 3 hours per day, five days a week, with techniques specific to the needs of the patient to improve function, activities of daily living, and reintegration into the community. The patient continues to require: -- OT to improve ROM, self-care, and learn use of adaptive equipment -- PT to improve strength and balance, functional transfers, and ambulation -- [employer]TER to evaluate and treat cognitive decline and dysphagia -- 24 hour RN to ensure and prevent skin breakdown, promote progressive independence while ensuring safety, ensure education regarding medications, and incorporation of the rehabilitation at the bedside -- 24 hour Rn Mds Coordinator to coordinate this interdisciplinary program, and to manage/prevent complications as a result of the patients medical comorbidities. -Plan of care by day 4 -Weekly team conferences With such a program, there is a reasonable certainty that the goals individualized for this patient can be achieved within the specified length of s campos. Z73.6 ADL dysfunction: OT will work on improving ability to perform ADLs (including assistive devices) to increase independence and decrease caregiver burden and improve functional transfers and mobility training. R26.2 Difficulty walking: PT will work on gait training and proper use of assistive devices and advance as appropriate to use of stairs and outside ambulation on uneven surfaces. R26.81 Unsteadiness on feet: PT will work on improving static and dynamic sitting and standing balance as well as proper use of assistive devices to decrease risk of falls. R26.89 Abnormality of gait: PT will work to improve safety and efficiency of gait through neuromotor training and gait training along with instruction on proper use of assistive devices. M62.81 Muscle weakness: PT & OT will work on strengthening exercises to improve functional strength including mixture of closed and open kinetic chain exercises. R53.81 Debility: PT & OT will work on improving overall functional status to im prove participation with ADLs, mobility and social involvement. R53.83 Fatigue: PT & OT will work on improving endurance through aerobic exercises and therapeutic activity while monitoring patients tolerance for activity and vital signs as needed. I10 Hypertension:Monitor BP and adjust medications as needed for normotension E78.5 Hyperlipidemia: continue statin J96.91 Respiratory failure: Continue trach care and RT treatments, monitor I48.91 AFib: Continue medications, monitor I50.9 CHF: continue daily weight, medications and monitor J44.9 COPD: Continue Inhalers and monitor DVT ppx: on Eliquis Pain: Continue physical modalities in therapy and pain medications as needed to achieve functional pain control. Sleep: Monitor and address as needed. Bowel: Monitor and address as needed. Appetite: Monitor and address as needed when appropriate. NPO, cont TF Discharge planning: Pending therapy progress and care plan meeting. Will continue discussion with therapy team, SW, patient and family. Restrictions/ Precautions: Falls, aspiration WB status: FWB Functional Hx: ADLs: Independent and working Cognition: Independent Mobility: independent Consults: Hospitalist for medical management Pulmonology for Pulm/Trach management Barriers to Discharge: Decreased mobility and ability to perform self care, weakness, balance deficits Estimated Length of Stay: 14-21 days Discharge Destination: Home with family POST ADMISSION PHYSICIAN EVALUATION I have examined the patient and find that his functional status, medical condition and appropriateness for IRF admission are essentially unchanged from those described in the preadmission screening. Will monitor for worsening respiratory function, worsening renal function, complications due to hypertension, electrolyte and cardiac abnormalities. Will attempt to avoid occurrence of these issues or treat them if they present themselves.
[2018-08-30] MEDS ORDERED: CORDARONE PO SCH (22:00)
[2018-08-30] MEDS ORDERED: PEPCID PO SCH (22:00)
[2018-08-30] MEDS ORDERED: ELIQUIS PO SCH (22:00)
[2018-08-30] MEDS: BROVANA NEBU IH SCH (23:05)
[2018-08-30] MEDS: PULMICORT IH SCH (23:05)
[2018-08-30] MEDS: ELIQUIS FEEDTUBE SCH (23:09)
[2018-08-30] MEDS: PEPCID FEEDTUBE SCH (23:09)
[2018-08-30] MEDS: HumaLOG SUB-Q SCH (23:10)
[2018-08-30] MEDS: CORDARONE FEEDTUBE SCH (23:11)
[2018-08-31] MEDS ORDERED: PRAVACHOL PO SCH (10:00)
[2018-08-31] MEDS ORDERED: VITAMIN B-12 PO SCH (10:00)
[2018-08-31] MEDS: PEPCID FEEDTUBE SCH ×2 (10:01→22:16)
[2018-08-31] MEDS: CORDARONE FEEDTUBE SCH ×2 (10:01→22:17)
[2018-08-31] MEDS: ELIQUIS FEEDTUBE SCH ×2 (10:02→22:17)
[2018-08-31] MEDS: PRAVACHOL FEEDTUBE SCH (10:02)
[2018-08-31] MEDS: BROVANA NEBU IH SCH ×2 (11:16→20:38)
[2018-08-31] MEDS: PULMICORT IH SCH ×2 (11:16→20:38)
[2018-08-31] MEDS ORDERED: PANCREAZE DR 10,500 UNIT FEEDTUBE PRN (11:55)
[2018-08-31] MEDS ORDERED: SODIUM BICARBONATE FEEDTUBE PRN (11:55)
[2018-08-31] MEDS ORDERED: SIMPLE SYRUP FEEDTUBE PRN ×2 (11:55)
[2018-08-31] MEDS: TYLENOL FEEDTUBE PRN ×2 (12:17→18:26)
[2018-08-31] MEDS: HumaLOG SUB-Q SCH ×2 (12:30→18:37)
--- NOTE | 2018-08-31 15:26 | Consultation ---
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 In ED, He was found to have AFib with RVR and treated initially with iv Cardizem then iv amiodarone drip, iv heparin and admitted to ICU. He developed an acute hypoxemic respiratory failure and was intubated. He also was treated for bacteremia due to Streptococcus anginosus. Patient also found to have urethral stricture with obstruction and a Osborne cath was placed by Urology, which is not to be removed. He was also found to have ARF. He was unable to be weaned from the Mechanical ventilator; therefore tracheostomy and PEG tube was placed on 08/11/19. He was discharged to inpatient rehab on 08/30/2018. Hospitalist has been consulted for medical management/evaluation for hypertension and DM. Past Medical History: cancer, COPD, hypertension, PVD Past Surgical History: Other (PV bypass and stents), now trach and peg Social history: , lives with family, other (Former EtOH and Tobacco, denies illicits. Independent, working, driving.) Family history: cancer, diabetes, stroke ROS: Constitutional: denies: fever ENT: denies: throat or neck pain Respiratory: denies: cough, shortness of breath Cardiovascular: denies: chest pain Endocrine: denies unexplained weight loss or gain Gastrointestinal: denies: abdominal pain, nausea Genitourinary: denies: dysuria Rectal: denies no incontinence, no bleeding, no itching, no discharge Musculoskeletal: denies swelling, myaglia, muscle weakness Skin: denies: rash Neurological: denies: headache Hematological/Lymphatic: denies: easy bleeding or easy bruising Allergic/Immunologic: no urticaria, no allergic rhinitis, no anaphylaxis Psych: denies sadness or hopelessness, SI/HI Past History Past Medical History: cancer, COPD, hypertension, PVD Past Surgical History: Other (PV bypass and stents) Social history: , lives with family, other (Former EtOH and Tobacco, denies illicits. Independent, working, driving.) Family history: cancer, diabetes, stroke Medications and Allergies Allergies Allergy/AdvReac Type Severity Reaction Status Date / Time No Known Allergies Allergy Verified 12/12/13 06:46 Home Medications Medication Instructions Recorded Confirmed Last Taken Type Pravastatin Sodium 40 mg PO DAILY 12/12/13 07/27/18 07/27/18 History Fluticasone/Salmeterol [Advair 1 puff IH BID 12/31/15 07/27/18 07/27/18 History Diskus 250-50 mcg] ALBUTEROL Inhaler (OR & NICU) 2 puff IH QID PRN 07/27/18 07/27/18 Unknown History [ProAir HFA Inhaler] Aspirin [Aspirin BABY CHEW TAB] 81 mg PO DAILY 07/27/18 07/27/18 07/27/18 History Cyanocobalamin (Vitamin B-12) 2,500 mcg PO DAILY 07/27/18 07/27/18 07/27/18 History [Vitamin B12] [place]-3S/Dha/Epa/Fish Oil/D3 [Fish 1 each PO DAILY 07/27/18 07/27/18 07/27/18 History Brx-Uwfeh-4-Vit D Softgel] Amiodarone [Cordarone 200 MG TAB] 200 mg PO BID tablet 08/30/18 Unknown Rx Apixaban [Eliquis] 5 mg PO Q12HR tablet 08/30/18 Unknown Rx Arformoterol Nebu [Brovana Nebu] 15 mcg IH Q12HRT ml 08/30/18 Unknown Rx Budesonide [Pulmicort Respules] 0.5 mg IH Q12HRT nebu 08/30/18 Unknown Rx Cyanocobalamin [Vitamin B-12] 2,500 mcg PO QDAY tablet 08/30/18 Unknown Rx Famotidine [Pepcid] 20 mg PO BID tablet 08/30/18 Unknown Rx Insulin Glargine [Lantus VIAL] 20 units SUB-Q QHS units 08/30/18 Unknown Rx Lipase/Protease/Amylase [Pancreaze 1 each FEEDTUBE PRN PRN capsule 08/30/[address] 10,500 Unit] Lispro Insulin [Humalog] 0 unit SUB-Q Q8HR units 08/30/18 Unknown Rx Min Oil/Petrolatum [Artificial 1 applic OU Q4HR PRN tube 08/30/18 Unknown Rx Tears Ophth Oint] Petrolatum,White [Vaseline Lip 1 applic TP Q2HR PRN tube 08/30/18 Unknown Rx Therapy] Quetiapine Fumarate [Seroquel] 100 mg PO HS #30 tablet 08/30/18 Unknown Rx Active Meds: Active Medications Acetaminophen (Tylenol) 650 mg FEEDTUBE Q6H PRN PRN Reason: Pain, Mild (1-3) Last Admin: 08/31/18 12:17 Dose: 650 mg Documented by: Amiodarone HCl (Cordarone) 200 mg FEEDTUBE BID [facility] Last Admin: 08/31/18 10:01 Dose: 200 mg Documented by: Lipase/Protease/Amylase (Sergo Mccarthy 10,500 Unit) 1 each FEEDTUBE PRN PRN PRN Reason: For Clogged Feeding Tube Apixaban (Eliquis) 5 mg FEEDTUBE Q12HR [facility]; Protocol Last Admin: 08/31/18 10:02 Dose: 5 mg Documented by: Arformoterol Tartrate (Brovana Nebu) 15 mcg IH Q12HRT [facility] Last Admin: 08/31/18 11:16 Dose: 15 mcg Documented by: Budesonide (Pulmicort) 0.5 mg IH Q12HRT [facility] Last Admin: 08/31/18 11:16 Dose: 0.5 mg Documented by: Cyanocobalamin (Vitamin B-12) 2,000 mcg FEEDTUBE QDAY [facility] Dextrose (D50w (25gm) Syringe) 50 ml IV PRN PRN PRN Reason: Hypoglycemia Famotidine (Pepcid) 20 mg FEEDTUBE BID [facility] Last Admin: 08/31/18 10:01 Dose: 20 mg Documented by: Hydrophilic Ointment (Vaseline Lip Therapy) 1 applic TP Q2HR PRN PRN Reason: Dry Lips Insulin Glargine (Lantus) 20 units SUB-Q QHS [facility] Insulin Human Lispro (Humalog) 0 unit SUB-Q Q6HR [facility]; Protocol Last Admin: 08/31/18 12:30 Dose: Not Given Documented by: Multi-Ingred Cream/Lotion/Oil/Oint (Artificial Tears Ophth Oint) 1 applic OU Q4HR PRN PRN Reason: Dry Eye(s) Pravastatin Sodium (Pravachol) 40 mg FEEDTUBE DAILY [facility] Last Admin: 08/31/18 10:02 Dose: 40 mg Documented by: Quetiapine Fumarate (Seroquel) 100 mg FEEDTUBE HS [facility] Last Admin: 08/30/18 23:09 Dose: 100 mg Documented by: Simple Syrup (Simple Syrup) 15 ml FEEDTUBE PRN PRN PRN Reason: Hypoglycemia Simple Syrup (Simple Syrup) 30 ml FEEDTUBE PRN PRN PRN Reason: Hypoglycemia Sodium Bicarbonate (Sodium Bicarbonate) 325 mg FEEDTUBE PRN PRN PRN Reason: For Clogged Feeding Tube Exam - Physical Exam Narrative exam: Gen: thin frail NAD, Awake, Alert, Orientated x 3, talking via passive jaguar valve HEENT: NCAT, EOMI, PERRL, OP Clear, nose tip deformity Neck: supple, no adenopathy, no thyromegaly, no JVD CVS/Heart: RRR, normal S1S2, pulses present bilaterally Chest/Lungs: CTA B, Symmetrical chest expansion, good air entry bilaterally GI/Abdomen: soft, NTND, good bowel sounds, no guarding or rebound /Bladder: no suprapubic tenderness, no CVA or paraspinal tenderness Extermity/Skin: no c/c/e, no obvious rash MSK: FROM x 4 Neuro: CN 2-12 grossly intact, no new focal deficits Psych: calm - Constitutional Vitals: Temp Pulse Resp BP Pulse Ox 97.7 F 88 18 116/66 86 08/31/18 12:39 08/31/18 12:39 08/31/18 12:39 08/31/18 12:39 08/31/18 12:39 Results - Labs Labs: Abnormal lab results 08/31/18 08/31/18 Range/Units 06:31 12:50 POC Glucose 129 H 144 H (70-105) Assessment and Plan Hospitalist Computer Discovery Teacher for medical management hypertension and DM Patient is 73 yo man with a plethora of co-morbidities including COPD on home O2, PVD, HTN, HLD and suspected nose Skin Cancer presented to [facility] ED on 07/27/2018 with chest pains, shortness of breath and 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 In ED, He was found to have AFib with RVR and treated initially with iv Cardizem then iv amiodarone drip, iv heparin and admitted to ICU. He developed an acute hypoxemic respiratory failure and was intubated. He also was treated for bacteremia due to Streptococcus anginosus. Patient also found to have urethral stricture with obstruction and a Osborne cath was placed by Urology, which is not to be removed. He was also found to have ARF. He was unable to be weaned from the Mechanical ventilator; therefore tracheostomy and PEG tube was placed on 08/11/19. He was discharged to inpatient rehab on 08/30/2018. Hospitalist has been consulted for medical management/evaluation for hypertension and DM. -Hypertension: tube feeding, bp running borderline low without medication, continue to monitor -Suspected new onset DM on sq lantus: check A1c, check electrolytes, accuchecks -Afib/PVD: consider consulting Cardiology to manage if need be -Chronic respiratory failure, tracheostomy dependent/COPD: consider consulting Pulm to manage -Dysphagia: consider consulting Senior Marketing Data Analyst and speech therapy
--- NOTE | 2018-08-31 17:05 | Consultation ---
History of Present Illness Consult date: 08/31/18 Reason for consult: COPD History of present illness: PULMONARY CONSULTATION. DR. FINNEY THANK YOU FOR ASKING US TO PARTICIPATE IN THE CARE OF THIS PATIENT. 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 After evaluation by his flatcar whacker he was admitted to [facility]. He was found to have atrial fibrillation with RVR, which was refractory to Cardizem drip but improved with amiodarone drip. He developed an acute hypoxemic respiratory failure and was admitted to the ICU and intubated. Patient had a complicated course which included the need for trach/PEG. He developed sepsis and pneumonia which were treated with antibiotics. Osborne was inserted by urology due to obstructive uropathy and a urethral stricture and is to remain in place. Patient has history of COPD. P Patient has heavy history of smoking 3 packs a day for 55 years. Stopped smoking 2011. 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 No known drug allergies. O2 90% on trach collar, FIO2 35% Past History Past Medical History: cancer, COPD, hypertension, PVD Past Surgical History: Other (PV bypass and stents) Social history: , lives with family, other (Former EtOH and Tobacco, denies illicits. Independent, working, driving.) Family history: cancer, diabetes, stroke Medications and Allergies Allergies Allergy/AdvReac Type Severity Reaction Status Date / Time No Known Allergies Allergy Verified 12/12/13 06:46 Home Medications Medication Instructions Recorded Confirmed Last Taken Type Pravastatin Sodium 40 mg PO DAILY 12/12/13 07/27/18 07/27/18 History Fluticasone/Salmeterol [Advair 1 puff IH BID 12/31/15 07/27/18 07/27/18 History Diskus 250-50 mcg] ALBUTEROL Inhaler (OR & NICU) 2 puff IH QID PRN 07/27/18 07/27/18 Unknown History [ProAir HFA Inhaler] Aspirin [Aspirin BABY CHEW TAB] 81 mg PO DAILY 07/27/18 07/27/18 07/27/18 History Cyanocobalamin (Vitamin B-12) 2,500 mcg PO DAILY 07/27/18 07/27/18 07/27/18 History [Vitamin B12] [place]-3S/Dha/Epa/Fish Oil/D3 [Fish 1 each PO DAILY 07/27/18 07/27/18 07/27/18 History Iqe-Beguc-7-Vit D Softgel] Amiodarone [Cordarone 200 MG TAB] 200 mg PO BID tablet 08/30/18 Unknown Rx Apixaban [Eliquis] 5 mg PO Q12HR tablet 08/30/18 Unknown Rx Arformoterol Nebu [Brovana Nebu] 15 mcg IH Q12HRT ml 08/30/18 Unknown Rx Budesonide [Pulmicort Respules] 0.5 mg IH Q12HRT nebu 08/30/18 Unknown Rx Cyanocobalamin [Vitamin B-12] 2,500 mcg PO QDAY tablet 08/30/18 Unknown Rx Famotidine [Pepcid] 20 mg PO BID tablet 08/30/18 Unknown Rx Insulin Glargine [Lantus VIAL] 20 units SUB-Q QHS units 08/30/18 Unknown Rx Lipase/Protease/Amylase [Pancreaze 1 each FEEDTUBE PRN PRN capsule 08/30/18 Unknown Rx 10,500 Unit] Lispro Insulin [Humalog] 0 unit SUB-Q Q8HR units 08/30/18 Unknown Rx Min Oil/Petrolatum [Artificial 1 applic OU Q4HR PRN tube 08/30/18 Unknown Rx Tears Ophth Oint] Petrolatum,White [Vaseline Lip 1 applic TP Q2HR PRN tube 08/30/18 Unknown Rx Therapy] Quetiapine Fumarate [Seroquel] 100 mg PO HS #30 tablet 08/30/18 Unknown Rx Active Meds: Active Medications Acetaminophen (Tylenol) 650 mg FEEDTUBE Q6H PRN PRN Reason: Pain, Mild (1-3) Last Admin: 08/31/18 12:17 Dose: 650 mg Documented by: Amiodarone HCl (Cordarone) 200 mg FEEDTUBE BID [facility] Last Admin: 08/31/18 10:01 Dose: 200 mg Documented by: Lipase/Protease/Amylase (Pancreaze 10,500 Unit) 1 each FEEDTUBE PRN PRN PRN Reason: For Clogged Feeding Tube Apixaban (Eliquis) 5 mg FEEDTUBE Q12HR [facility]; Protocol Last Admin: 08/31/18 10:02 Dose: 5 mg Documented by: Arformoterol Tartrate (Brovana Nebu) 15 mcg IH Q12HRT [facility] Last Admin: 08/31/18 11:16 Dose: 15 mcg Documented by: Budesonide (Pulmicort) 0.5 mg IH Q12HRT [facility] Last Admin: 08/31/18 11:16 Dose: 0.5 mg Documented by: Cyanocobalamin (Vitamin B-12) 2,000 mcg FEEDTUBE QDAY [facility] Dextrose (D50w (25gm) Syringe) 50 ml IV PRN PRN PRN Reason: Hypoglycemia Famotidine (Pepcid) 20 mg FEEDTUBE BID [facility] Last Admin: 08/31/18 10:01 Dose: 20 mg Documented by: Hydrophilic Ointment (Vaseline Lip Therapy) 1 applic TP Q2HR PRN PRN Reason: Dry Lips Insulin Glargine (Lantus) 20 units SUB-Q QHS [facility] Insulin Human Lispro (Humalog) 0 unit SUB-Q Q6HR [facility]; Protocol Last Admin: 08/31/18 12:30 Dose: Not Given Documented by: Multi-Ingred Cream/Lotion/Oil/Oint (Artificial Tears Ophth Oint) 1 applic OU Q4HR PRN PRN Reason: Dry Eye(s) Pravastatin Sodium (Pravachol) 40 mg FEEDTUBE DAILY [facility] Last Admin: 08/31/18 10:02 Dose: 40 mg Documented by: Quetiapine Fumarate (Seroquel) 100 mg FEEDTUBE HS [facility] Last Admin: 08/30/18 23:09 Dose: 100 mg Documented by: Simple Syrup (Simple Syrup) 15 ml FEEDTUBE PRN PRN PRN Reason: Hypoglycemia Simple Syrup (Simple Syrup) 30 ml FEEDTUBE PRN PRN PRN Reason: Hypoglycemia Sodium Bicarbonate (Sodium Bicarbonate) 325 mg FEEDTUBE PRN PRN PRN Reason: For Clogged Feeding Tube Review of Systems ROS unobtainable: due to endotracheal tube All systems: negative Physical Examination Vital signs: Vital Signs Pulse Ox 95 08/30/18 21:50 General appearance: no acute distress, alert Eyes: non-icteric ENT: oropharynx moist Neck: supple, no JVD, other (Tracheostomy.) Effort: normal Ascultation: Bilateral: rhonchi Cardiovascular: regular rate and rhythm Gastrointestinal: normoactive bowel sounds, soft, non-tender Integumentary: normal Extremities: no cyanosis, no edema Musculoskeletal: no deformities normal mental status, non-focal exam, pupils equal and round, CN II-XII normal mood appropriate Results - Laboratory Findings Abnormal lab findings: Abnormal Labs 08/31/18 08/31/18 06:31 12:50 POC Glucose 129 H 144 H Assessment and Plan 3-year-old male who experienced two days of shortness of breath and palpitations prior to reporting to the his flatcar whacker. After evaluation by his flatcar whacker he was admitted to [facility]. He was found to have atrial fibrillation with RVR, which was refractory to Cardizem drip but improved with amiodarone drip. He developed an acute hypoxemic respiratory failure and was admitted to the ICU and intubated. Patient had a complicated course which included the need for trach/PEG. He developed sepsis and pneumonia which were treated with antibiotics. Osborne was inserted by urology due to obstructive uropathy and a urethral stricture and is to remain in place. Patient has history of COPD. P Patient has heavy history of smoking 3 packs a day for 55 years. Stopped smoking 2011. 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 No known drug allergies. O2 90% on trach collar, FIO2 35% - Patient Problems (1) Acute respiratory failure Current Visit: No Status: Acute Qualifiers: Respiratory failure complication: hypoxia Qualified Code(s): J96.01 - Acute respiratory failure with hypoxia Plan to address problem: Continue trach collar , FIO2 35%. Brovanna/Budesonide aerosol treatments q 12 hours. Patient is on Apixaban. Continue famotidine. (2) ARF (acute renal failure) with tubular necrosis Current Visit: No Status: Acute Plan to address problem: Management as per nephrology. (3) Atrial fibrillation with RVR Current Visit: No Status: Acute Plan to address problem: Management as per cardiology. Patient is on Apixaban. (4) CHF (congestive heart failure) Current Visit: No Status: Acute Qualifiers: Heart failure type: systolic Heart failure chronicity: acute Qualified Code(s): I50.21 - Acute systolic (congestive) heart failure Plan to address problem: Mangemet as per cardiology. (5) COPD exacerbation Current Visit: No Status: Acute Plan to address problem: Continue trach collar , FIO2 35%. Brovanna/Budesonide aerosol treatments q 12 hours. Patient is on Apixaban. Continue famotidine
[2018-08-31] MEDS: LANTUS SUB-Q SCH (21:15)
[2018-09-01] MEDS: HumaLOG SUB-Q SCH ×5 (00:55→20:20)
[2018-09-01 04:59] LABS: Hematocrit 34.7 % (35.5-45.6); Hemoglobin 11.3 gm/dl (11.8-15.2); Mean Corpuscular HGB Conc 33 % (32-34); Mean Corpuscular Volume 102 fl (84-94); Platelet Count 439 K/mm3 (140-440); Red Blood Count 3.41 M/mm3 (3.65-5.03); Red Cell Distribution Width 18.2 % (13.2-15.2)
[2018-09-01 05:23] LABS: BUN/Creatinine Ratio 30; Blood Urea Nitrogen 15 mg/dL (9-20); Calcium 9.4 mg/dL (8.4-10.2); Hemolysis Index 5
[2018-09-01] MEDS: TYLENOL FEEDTUBE PRN ×2 (06:49→16:46)
[2018-09-01] MEDS: PEPCID FEEDTUBE SCH ×2 (08:55→23:29)
[2018-09-01] MEDS: CORDARONE FEEDTUBE SCH ×2 (08:55→23:29)
[2018-09-01] MEDS: VITAMIN B-12 FEEDTUBE SCH (08:55)
[2018-09-01] MEDS: ELIQUIS FEEDTUBE SCH ×2 (09:12→23:29)
[2018-09-01] MEDS: PRAVACHOL FEEDTUBE SCH (09:12)
[2018-09-01] MEDS: PULMICORT IH SCH ×2 (09:25→21:15)
[2018-09-01] MEDS: BROVANA NEBU IH SCH ×2 (09:25→21:15)
--- NOTE | 2018-09-01 09:43 | Progress Note ---
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 Some shortness of breath, strong cough. No diarrhea, no chest pain. Objective - Exam Narrative Exam: Gen: thin frail NAD, Awake, Alert, Orientated x 3, talking via passive jaguar valve HEENT: NCAT, EOMI, PERRL, OP Clear, nose tip deformity Neck: supple, no adenopathy, no thyromegaly, no JVD CVS/Heart: RRR, normal S1S2, pulses present bilaterally Chest/Lungs: CTA B, Symmetrical chest expansion, good air entry bilaterally GI/Abdomen: soft, NTND, good bowel sounds, no guarding or rebound /Bladder: no suprapubic tenderness, no CVA or paraspinal tenderness Extermity/Skin: no c/c/e, no obvious rash MSK: FROM x 4 Neuro: CN 2-12 grossly intact, no new focal deficits Psych: calm Vital Signs - 12hr 08/31/18 08/31/18 08/31/18 22:00 22:07 22:59 Temperature 98.4 F Pulse Rate 78 Respiratory 19 16 Rate Blood Pressure 126/72 [Left] O2 Sat by Pulse 93 93 Oximetry O2 Sat by Pulse 94 Oximetry [ Assessment] 09/01/18 09/01/18 09/01/18 01:46 05:14 06:08 Temperature 98.5 F 98.5 F Pulse Rate 83 83 Respiratory 19 19 Rate Blood Pressure 120/72 138/76 [Left] O2 Sat by Pulse 93 95 Oximetry O2 Sat by Pulse 94 Oximetry [ Assessment] 09/01/18 09/01/18 09/01/18 06:42 06:49 07:49 Temperature Pulse Rate Respiratory 17 17 Rate Blood Pressure [Left] O2 Sat by Pulse Oximetry O2 Sat by Pulse 95 Oximetry [ Assessment] Constitutional: no acute distress, alert Eyes: non-icteric ENT: oropharynx moist Neck: supple, no JVD, other (Tracheostomy.) Effort: normal Ascultation: Bilateral: rhonchi Cardiovascular: regular rate and rhythm Gastrointestinal: normoactive bowel sounds, soft, non-tender Integumentary: normal Extremities: no cyanosis, no edema Neurologic: normal mental status, non-focal exam, pupils equal and round, CN II- XII normal Psychiatric: mood appropriate CBC and BMP: 09/01/18 04:28 09/01/18 04:28 Abnormal lab findings: Abnormal Labs 08/31/18 08/31/18 08/31/18 06:31 12:50 16:31 RBC Hgb Hct MCV MCH RDW Chloride Carbon Dioxide Creatinine Glucose POC Glucose 129 H 144 H Hemoglobin A1c 6.9 H 08/31/18 08/31/18 09/01/18 17:10 22:17 01:54 RBC Hgb Hct MCV MCH RDW Chloride Carbon Dioxide Creatinine Glucose POC Glucose 133 H 140 H 133 H Hemoglobin A1c 09/01/18 09/01/18 09/01/18 04:28 04:28 06:18 RBC 3.41 L Hgb 11.3 L Hct 34.7 L MCV 102 H MCH 33 H RDW 18.2 H Chloride 94.8 L Carbon Dioxide 33 H Creatinine 0.5 L Glucose 130 H POC Glucose 130 H Hemoglobin A1c Allied health notes reviewed: PT
--- NOTE | 2018-09-01 11:39 | XRay Report ---
ROUTINE CHEST, TWO VIEWS: HISTORY: Respiratory failure, status post tracheostomy. The tracheostomy appears in good position. No evidence for pneumothorax or pneumomediastinum. Chronic changes in both lungs appear relatively stable. Partial atelectasis is suspected in the left lower lobe which is unchanged. No infiltrate or large pleural effusion. IMPRESSION: No acute cardiopulmonary process.
--- NOTE | 2018-09-01 12:36 | Progress Note ---
Subjective Date of service: 09/01/18 Principal diagnosis: Debility Interval history: 73-year-old male who experienced two days of shortness of breath and palpitations prior to reporting to the his hand model. After evaluation by his hand model he was admitted to [facility]. He was found to have atrial fibrillation with RVR, which was refractory to Cardizem drip but improved with amiodarone drip. He developed an acute hypoxemic respiratory failure and was admitted to the ICU and intubated. Patient had a complicated course which included the need for trach/PEG. He developed sepsis and pneumonia which were treated with antibiotics. Osborne was inserted by urology due to obstructive uropathy and a urethral stricture and is to remain in place. He remains on trach with blow by O2. Patient is participating with therapy and making fair progress. +BM. Pain is controlled. Cough seems to settle down from admission exam. PEG tube is ok. No other issues per patient, nursing or therapy. Vital signs are stable. Hemoglobin is improving. Lantus is being held and we may need to DC it in the near future and just cover with sliding scale. Continue to monitor that. Discussed with RT the possibility of downsizing the trach, we'll defer to vice president underwriting and appreciate their assistance. We'll continue the Osborne and I will recheck up to the urologist to see if they want to change any management at some point prior to discharge or if they still prefer for the patient to follow- up. We'll place a order for COMMUNITY DEVELOPMENT SPECIALIST. No further issues from patient, nursing, or therapist. All available medical records, therapy notes, vitals and labs were reviewed. Objective - Exam Narrative Exam: MUSCULOSKELETAL SPECIALTY EXAM Constitutional: Well developed, well nourished, appropriately groomed EENT: EOMI. Trach in place with PMV. Hearing intact to finger rustle Respiratory: Rhonchi on ascultation bilaterally, no increased work of breathing, on T tube. Cardiovascular Regular Rate/ Rhythm, no swelling edema or tenderness in all 4 extremities. All 4 extremities warm. GI : + bowel sounds, soft, NTTP, nondistended, PEG : Osborne INTEGUMENTARY Normal in all 4 extremities, scars on LE Musuloskeletal BUE and BLE normal without defect, crepitus, sublux, effusion, or TTP. BUE and BLE 4-/5, adequate ROM with normal tone. NEURO: CN 2-12 grossly intact. Sensation intact in all extremities. No tremor noted. POSTURE and GAIT: Examined in bed. Deferred until examined with therapy for safety. PSYCH: Alert, orientated x3, affect appears normal. Insight appears intact. - Constitutional Vitals: Vital Signs - 12hr 09/01/18 09/01/18 09/01/18 01:46 05:14 06:08 Temperature 36.9 C 36.9 C Pulse Rate 83 83 Respiratory 19 19 Rate Blood Pressure Blood Pressure 120/72 138/76 [Left] O2 Sat by Pulse 93 95 Oximetry O2 Sat by Pulse 94 Oximetry [ Assessment] 09/01/18 09/01/18 09/01/18 06:42 06:49 07:49 Temperature Pulse Rate Respiratory 17 17 Rate Blood Pressure Blood Pressure [Left] O2 Sat by Pulse Oximetry O2 Sat by Pulse 95 Oximetry [ Assessment] 09/01/18 09/01/18 09/01/18 08:32 08:33 08:40 Temperature 36.8 C Pulse Rate 84 82 Respiratory 18 Rate Blood Pressure 127/72 Blood Pressure [Left] O2 Sat by Pulse 92 91 92 Oximetry O2 Sat by Pulse Oximetry [ Assessment] 09/01/18 09/01/18 10:00 12:24 Temperature Pulse Rate 81 Respiratory Rate Blood Pressure Blood Pressure [Left] O2 Sat by Pulse 95 94 Oximetry O2 Sat by Pulse Oximetry [ Assessment] - Allied health notes Allied health notes reviewed: nursing, PT, OT, RT FIMS assessment as documented by PT/OT/ST: Grooming Patient cleans teeth/dentures: Yes: gums Patient heck/brushes hair: Yes Patient washes, rinses and Yes dries face: Patient washes, rinses and Yes dries hands: Patient shaves: No Patient performs (no make-up/ 4/4 (100%) shaving): Grooming FIM Score 5. Supervision ([place] applies toothpaste or opens containers.) Toileting Toileting Device Commode over Toilet Patient able to: Adjust clothes before,Clean self,Adjust clothes after Patient able to perform: 3/3 (100%) Toileting FIM Score 4. Minimal Assistance (Patient = 75% or more. Needs touching.) Social interaction/Memory/Problem solving Social Interaction FIM Score 7. Complete Goodman (Interacts appropriately. Controls temper.) Memory FIM Score 6. Modified Goodman(Mild difficulty remembering people/routines.) Problem Solving FIM Score 5. Supervision (Needs cueing <10% to solve routine problems.) Transfers Mode of Locomotion: Wheelchair Bed/Chair/Wheelchair Transfers 3. Moderate Assistance (Patient = 50% or more. FIM Score Some lifting.) Toilet Transfers FIM Score 4. Minimal Assistance (Patient = 75% or more. Needs touching.) Shower Transfers FIM Score 4. Minimal Assistance (Patient = 75% or more. Needs touching.) Locomotion- Stairs Stairs FIM Score 0. Activity does not occur Locomotion- walk/wheelchair Most Frequent Mode of Walking Locomotion: Ambulation Distance 15 Walking FIM Score 4. Minimal Assistance (Patient = 75% or more. Minimum of 150 ft.) Wheelchair Propulsion Distance 150 Wheelchair FIM Score 5. Supervision (Minimum 150 ft. supv./cues or 50 ft. independently.) Eating Eating FIM Score 0. Activity does not occur (Does not eat and no tube feeding.) Dressing-Upper body Patient retrieves clothing No items: Patient applies/removes UE n/a prosthesis or orthosis: Upper Body Dressing FIM Score 5. Supv./Set-Up ([place] sets out clothes or applies pros./orth.) Dressing-lower body Patient retrieves clothing No items: Patient applies/removes LE n/a prosthesis or orthosis: Lower Body Dressing FIM Score 4. Minimal Assistance (Patient = 75% or more. Needs touching.) - Labs CBC & Chem 7: 09/01/18 04:28 09/01/18 04:28 Labs: Laboratory Results - last 72 hr 08/31/18 08/31/18 08/31/18 06:31 12:50 16:31 WBC RBC Hgb Hct MCV MCH MCHC RDW Plt Count POC ABG pH POC ABG pCO2 POC ABG pO2 POC ABG HCO3 POC ABG Total CO2 POC ABG O2 Sat POC ABG Base Excess FiO2 Sodium Potassium Chloride Carbon Dioxide Anion Gap BUN Creatinine Estimated GFR BUN/Creatinine Ratio Glucose POC Glucose 129 H 144 H Hemoglobin A1c 6.9 H Calcium 08/31/18 08/31/18 09/01/18 17:10 22:17 01:54 WBC RBC Hgb Hct MCV MCH MCHC RDW Plt Count POC ABG pH POC ABG pCO2 POC ABG pO2 POC ABG HCO3 POC ABG Total CO2 POC ABG O2 Sat POC ABG Base Excess FiO2 Sodium Potassium Chloride Carbon Dioxide Anion Gap BUN Creatinine Estimated GFR BUN/Creatinine Ratio Glucose POC Glucose 133 H 140 H 133 H Hemoglobin A1c Calcium 09/01/18 09/01/18 09/01/18 04:28 04:28 06:18 WBC 8.3 RBC 3.41 L Hgb 11.3 L Hct 34.7 L MCV 102 H MCH 33 H MCHC 33 RDW 18.2 H Plt Count 439 POC ABG pH POC ABG pCO2 POC ABG pO2 POC ABG HCO3 POC ABG Total CO2 POC ABG O2 Sat POC ABG Base Excess FiO2 Sodium 137 Potassium 4.3 Chloride 94.8 L Carbon Dioxide 33 H Anion Gap 14 BUN 15 Creatinine 0.5 L Estimated GFR > 60 BUN/Creatinine Ratio 30 Glucose 130 H POC Glucose 130 H Hemoglobin A1c Calcium 9.4 09/01/18 11:52 WBC RBC Hgb Hct MCV MCH MCHC RDW Plt Count POC ABG pH 7.417 POC ABG pCO2 50.7 H POC ABG pO2 53 L POC ABG HCO3 32.6 POC ABG Total CO2 34 POC ABG O2 Sat 87 POC ABG Base Excess 8 FiO2 35 Sodium Potassium Chloride Carbon Dioxide Anion Gap BUN Creatinine Estimated GFR BUN/Creatinine Ratio Glucose POC Glucose Hemoglobin A1c Calcium Assessment and Plan Z73.6 ADL dysfunction: OT will work on improving ability to perform ADLs (including assistive devices) to increase independence and decrease caregiver burden and improve functional transfers and mobility training. R26.2 Difficulty walking: PT will work on gait training and proper use of assistive devices and advance as appropriate to use of stairs and outside ambulation on uneven surfaces. R26.81 Unsteadiness on feet: PT will work on improving static and dynamic sitting and standing balance as well as proper use of assistive devices to decre ase risk of falls. R26.89 Abnormality of gait: PT will work to improve safety and efficiency of gait through neuromotor training and gait training along with instruction on proper use of assistive devices. M62.81 Muscle weakness: PT & OT will work on strengthening exercises to improve functional strength including mixture of closed and open kinetic chain exercises. R53.81 Debility: PT & OT will work on improving overall functional status to improve participation with ADLs, mobility and social involvement. R53.83 Fatigue: PT & OT will work on improving endurance through aerobic exercises and therapeutic activity while monitoring patients tolerance for activity and vital signs as needed. Hypertension, Hyperlipidemia, Respiratory failure, AFib, CHF, COPD DVT ppx: on Eliquis Pain: Continue physical modalities in therapy and pain medications as needed to achieve functional pain control. Sleep: Monitor and address as needed. Bowel: Monitor and address as needed. Appetite: Monitor and address as needed when appropriate. NPO, cont TF Discharge planning: Pending therapy progress and care plan meeting. Will continue discussion with therapy team, SW, patient and family. Restrictions/ Precautions: Falls, aspiration WB status: FWB Functional Hx: ADLs: Independent and working Cognition: Independent Mobility: independent Consults: Hospitalist for medical management Pulmonology for Pulm/Trach management Appreciate assistance Barriers to Discharge: Decreased mobility and ability to perform self care, weakness, balance deficits Estimated Length of Stay: 14-21 days Discharge Destination: Home with family
--- NOTE | 2018-09-01 17:15 | Progress Note ---
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 In ED, He was found to have AFib with RVR and treated initially with iv Cardizem then iv amiodarone drip, iv heparin and admitted to ICU. He developed an acute hypoxemic respiratory failure and was intubated. He also was treated for bacteremia due to Streptococcus anginosus. Patient also found to have urethral stricture with obstruction and a Osborne cath was placed by Urology, which is not to be removed. He was also found to have ARF. He was unable to be weaned from the Mechanical ventilator; therefore tracheostomy and PEG tube was placed on 08/11/19. He was discharged to inpatient rehab on 08/30/2018. Hospitalist has been consulted for medical management/evaluation for hypertension and DM. 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 History Interval history: Patient was seen and examined. Follow-up on current diagnosis of hypertension and DM. Overnight uneventful. Patient denies any chest pain, shortness breath, nausea/vomiting or severe headaches. Imaging, nursing note, chart, labs and old chart reviewed. Discussed with patient. Hospitalist Physical - Physical exam Narrative exam: Gen: thin frail NAD, Awake, Alert, Orientated x 3, talking via passive jaguar valve HEENT: NCAT, EOMI, PERRL, OP Clear, nose tip deformity Neck: supple, no adenopathy, no thyromegaly, no JVD CVS/Heart: RRR, normal S1S2, pulses present bilaterally Chest/Lungs: CTA B, Symmetrical chest expansion, good air entry bilaterally GI/Abdomen: soft, NTND, good bowel sounds, no guarding or rebound /Bladder: no suprapubic tenderness, no CVA or paraspinal tenderness Extermity/Skin: no c/c/e, no obvious rash MSK: FROM x 4 Neuro: CN 2-12 grossly intact, no new focal deficits Psych: calm - Constitutional Vitals: Temp Pulse Resp BP Pulse Ox 98.2 F 85 20 127/72 90 09/01/18 16:00 09/01/18 16:36 09/01/18 16:46 09/01/18 16:00 09/01/18 16:36 Results - Labs CBC & Chem 7: 09/01/18 04:28 09/01/18 04:28 Labs: Laboratory Last Values WBC 8.3 K/mm3 (4.5-11.0) 09/01/18 04:28 RBC 3.41 M/mm3 (3.65-5.03) L 09/01/18 04:28 Hgb 11.3 gm/dl (11.8-15.2) L 09/01/18 04:28 Hct 34.7 % (35.5-45.6) L 09/01/18 04:28 MCV 102 fl (84-94) H 09/01/18 04:28 MCH 33 pg (28-32) H 09/01/18 04:28 MCHC 33 % (32-34) 09/01/18 04:28 RDW 18.2 % (13.2-15.2) H 09/01/18 04:28 Plt Count 439 K/mm3 (140-440) 09/01/18 04:28 POC ABG pH 7.417 (7.35-7.45) 09/01/18 11:52 POC ABG pCO2 50.7 (35-45) H 09/01/18 11:52 POC ABG pO2 53 (80-105) L 09/01/18 11:52 POC ABG HCO3 32.6 09/01/18 11:52 POC ABG Total CO2 34 09/01/18 11:52 POC ABG O2 Sat 87 09/01/18 11:52 POC ABG Base Excess 8 09/01/18 11:52 FiO2 35 % 09/01/18 11:52 Sodium 137 mmol/L (137-145) 09/01/18 04:28 Potassium 4.3 mmol/L (3.6-5.0) 09/01/18 04:28 Chloride 94.8 mmol/L (98-107) L 09/01/18 04:28 Carbon Dioxide 33 mmol/L (22-30) H 09/01/18 04:28 Anion Gap 14 mmol/L 09/01/18 04:28 BUN 15 mg/dL (9-20) 09/01/18 04:28 Creatinine 0.5 mg/dL (0.8-1.5) L 09/01/18 04:28 Estimated GFR > 60 ml/min 09/01/18 04:28 BUN/Creatinine Ratio 30 % 09/01/18 04:28 Glucose 130 mg/dL (75-100) H 09/01/18 04:28 POC Glucose 142 (70-105) H 09/01/18 16:37 Hemoglobin A1c 6.9 % (4-6) H 08/31/18 16:31 Calcium 9.4 mg/dL (8.4-10.2) 09/01/18 04:28 Nutrition/Malnutrition Assess - Dietary Evaluation Nutrition/Malnutrition Findings: Nutrition Notes Start: 08/31/18 11:02 Freq: Status: Active Protocol: Document 08/31/18 11:02 LM (Rec: 08/31/18 11:55 LM [id number]) Co-Sign 08/31/18 11:02 LP Nutrition Notes Need for Assessment generated from: MD Order Initial or Follow up Assessment Current Diagnosis COPD Hypertension Other Pertinent Diagnosis PVD, Ca Current Diet NPO Labs/Tests Reviewed Pertinent Medications Reviewed Height 5 ft 8 in Weight 74.9 kg Usual Body Weight 73.36 kg [place] Body Weight (lbs) 154.0 BMI 25.1 Intake Prior to Admission Excellent Subjective/Other Information Consult for TF. Pt statd that he noticed he has lost some weight but could not recall how much. Pt has trach collar and PEG. Noticed Jevity 1.2 hanging in room. Not running at time of visit. Burn Absent Trauma Absent #1 Nutrition Diagnosis Inadequate oral intake Etiology Dyphagia As Evidenced by Signs and Symptoms PEG, Trach collar Is patient on ventilator? No Is Patient Ambulatory and/or Out of Bed No REE-([facility]-confined to bed) 8386.500 Calculation Used for Recommendations Yonis Main Additional Notes Protein: 75-90 g (1-1.2 g/kg) Fluids: 1 mL/kcal Nutrition Intervention Change Diet Order: TF Nutrition Support: Jevity 1.2 at 60 mL/hr Flush 100 mL q4hr Kcal 1,728 Protein (gm) 80 Fluid (mL) 1,162 Goal #1 Meet at least 75% of energy and protein needs Anticipated Discharge Needs: TF Follow-Up By: 09/02/18 Additional Comments F/U for TF tolerance and rate
[2018-09-01] MEDS: LANTUS SUB-Q SCH (23:38)
[2018-09-02] MEDS: HumaLOG SUB-Q SCH ×4 (00:49→18:55)
[2018-09-02] MEDS: PULMICORT IH SCH ×2 (08:39→21:03)
[2018-09-02] MEDS: BROVANA NEBU IH SCH ×2 (08:39→21:03)
[2018-09-02] MEDS: TYLENOL FEEDTUBE PRN ×3 (09:07→22:17)
[2018-09-02] MEDS: CORDARONE FEEDTUBE SCH ×2 (09:08→22:16)
[2018-09-02] MEDS: PEPCID FEEDTUBE SCH ×2 (09:08→22:17)
[2018-09-02] MEDS: VITAMIN B-12 FEEDTUBE SCH (09:08)
--- NOTE | 2018-09-02 12:11 | Progress Note ---
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 sq lantus -Afib/PVD -Dysphagia s/p PEG -Downsize trachesotomy to size #6 damián mabryless -Start capping trials per protocol -Bronchodilators per protocol -Supplemental oxygen to keep O2 sats>99% -Continue PT/OT -Continue all current supportive care per Rehab team Subjective Date of service: 09/02/18 Principal diagnosis: Debility Interval history: Patient is seen today for: Chronic respiratory failure, s/p trachesotomy Seen and examined at bedside; 24hour events reviewed; nursing and respiratory care staff consulted; no adverse overnight events reported to me; Size #8 tracheostomy with PMV in place. Ambulating in [address] with PT, wheelchair and a gait belt. Phonating well Objective - Exam Narrative Exam: Gen: thin frail NAD, Awake, Alert, Orientated x 3, talking via passive jaguar valve HEENT: NCAT, EOMI, PERRL, OP Clear, nose tip deformity Neck: supple, no adenopathy, no thyromegaly, no JVD CVS/Heart: RRR, normal S1S2, pulses present bilaterally Chest/Lungs: CTA B, Symmetrical chest expansion, good air entry bilaterally GI/Abdomen: soft, NTND, good bowel sounds, no guarding or rebound /Bladder: no suprapubic tenderness, no CVA or paraspinal tenderness Extermity/Skin: no c/c/e, no obvious rash MSK: FROM x 4 Neuro: CN 2-12 grossly intact, no new focal deficits Psych: calm Vital Signs - 12hr 09/02/18 09/02/18 09/02/18 04:51 05:15 07:38 Temperature 98.5 F Pulse Rate 79 79 Pulse Rate [ Bilateral Throughout] Respiratory 20 Rate Respiratory Rate [Bilateral Throughout] Blood Pressure 125/70 125/72 O2 Sat by Pulse 91 89 Oximetry O2 Sat by Pulse 92 Oximetry [ Assessment] 09/02/18 09/02/18 09/02/18 07:40 08:40 08:51 Temperature Pulse Rate 92 H Pulse Rate [ 80 85 Bilateral Throughout] Respiratory Rate Respiratory 18 18 Rate [Bilateral Throughout] Blood Pressure 105/64 O2 Sat by Pulse 93 Oximetry O2 Sat by Pulse Oximetry [ Assessment] 09/02/18 08:52 Temperature Pulse Rate Pulse Rate [ Bilateral Throughout] Respiratory Rate Respiratory Rate [Bilateral Throughout] Blood Pressure O2 Sat by Pulse 92 Oximetry O2 Sat by Pulse Oximetry [ Assessment] Constitutional: no acute distress, alert Eyes: non-icteric ENT: oropharynx moist Neck: supple, no JVD, other (Tracheostomy.) Effort: normal Ascultation: Bilateral: rhonchi Cardiovascular: regular rate and rhythm Gastrointestinal: normoactive bowel sounds, soft, non-tender Integumentary: normal Extremities: no cyanosis, no edema Neurologic: normal mental status, non-focal exam, pupils equal and round, CN II- XII normal Psychiatric: mood appropriate, affect normal CBC and BMP: 09/01/18 04:28 09/01/18 04:28 ABG, PT/INR, D-dimer: ABG POC ABG pH 7.417 (7.35-7.45) 09/01/18 11:52 POC ABG pCO2 50.7 (35-45) H 09/01/18 11:52 POC ABG pO2 53 (80-105) L 09/01/18 11:52 POC ABG HCO3 32.6 09/01/18 11:52 POC ABG Total CO2 34 09/01/18 11:52 POC ABG O2 Sat 87 09/01/18 11:52 Abnormal lab findings: Abnormal Labs 08/31/18 08/31/18 08/31/18 06:31 12:50 16:31 RBC Hgb Hct MCV MCH RDW POC ABG pCO2 POC ABG pO2 Chloride Carbon Dioxide Creatinine Glucose POC Glucose 129 H 144 H Hemoglobin A1c 6.9 H 08/31/18 08/31/18 09/01/18 17:10 22:17 01:54 RBC Hgb Hct MCV MCH RDW POC ABG pCO2 POC ABG pO2 Chloride Carbon Dioxide Creatinine Glucose POC Glucose 133 H 140 H 133 H Hemoglobin A1c 09/01/18 09/01/18 09/01/18 04:28 04:28 06:18 RBC 3.41 L Hgb 11.3 L Hct 34.7 L MCV 102 H MCH 33 H RDW 18.2 H POC ABG pCO2 POC ABG pO2 Chloride 94.8 L Carbon Dioxide 33 H Creatinine 0.5 L Glucose 130 H POC Glucose 130 H Hemoglobin A1c 09/01/18 09/01/18 09/01/18 11:52 14:24 16:37 RBC Hgb Hct MCV MCH RDW POC ABG pCO2 50.7 H POC ABG pO2 53 L Chloride Carbon Dioxide Creatinine Glucose POC Glucose 168 H 142 H Hemoglobin A1c 09/01/18 09/02/18 09/02/18 23:40 06:48 11:41 RBC Hgb Hct MCV MCH RDW POC ABG pCO2 POC ABG pO2 Chloride Carbon Dioxide Creatinine Glucose POC Glucose 129 H 135 H 144 H Hemoglobin A1c
[2018-09-02] MEDS: PRAVACHOL FEEDTUBE SCH (12:41)
[2018-09-02] MEDS: ELIQUIS FEEDTUBE SCH ×2 (12:41→22:17)
--- NOTE | 2018-09-02 14:01 | Fluoroscopy Report ---
MODIFIED BARIUM SWALLOW History: dysphagia. Findings: Video radiography was provided by the radiologist for speech therapy to assess the swallowing mechanism. 1 fluoroscopic image was captured. Silent aspiration was witnessed with thin liquids. Please correlate with the report by speech therapy. Impression: Successful modified barium swallow.
[2018-09-02] MEDS ORDERED: TYLENOL ONE (14:14)
--- NOTE | 2018-09-02 19:38 | IRU Plan of Care ---
Interdisciplinary Plan of Care - IP IRU INTERDISCIPLINARY PLAN: [facility] Inpatient Rehab Unit Plan of Care IRU Interdisciplinary Care Plan Start: 08/30/18 21:12 Freq: Admission then PRN Status: Active Protocol: Document 09/02/18 12:02 TH (Rec: 09/02/18 12:07 TH [id number]) Interdisciplinary Problem List Interdisciplinary Problem List Interdisciplinary Problem List Impaired Eating/Swallowing Query Text:Answers will Trigger Problems Impaired Bathing/Grooming and Outcomes on Worklist. Impaired Dressing Impaired Mobility Impaired Transfers Impaired Toileting Impaired Home Management Impaired Safety IRU Interdisciplinary Care Plan Therapy Services Therapy Services Will Include: Physical Therapy Query Text:Patient will be seen for a Occupational Therapy minimum of 3 hours of daily therapy 5 out of 7 days a week. Therapy intensity may be adjusted within a 7 consecutive day period to effectively serve the individual needs of the patient. Treatment Frequency/Intensity/Duration Treatment Frequency 5 dys/week Treatment Intensity 3hrs/day Treatment Duration 14-21 days Problem Area: Eating/Swallowing Eating/Swallowing Outcomes Consume Least Restrictive Diet Eating/Swallowing Interventions Dysphagia Training Patient/Caregiver Education Problem Area: Bathing/Grooming Bathing/Grooming Outcomes Improve Arthur w/ Grooming Improve Arthur w/ Bathing Bathing/Grooming Interventions ADL Training Therapeutic Exercise Therapeutic Activity Neuromuscular Re-Education Balance Work Activity Tolerance Work Patient/Caregiver Education Problem Area: Dressing Dressing Outcomes Improve Arthur w/ UB Dressing Improve Arthur w/ LB Dressing Dressing Interventions ADL Training Neuromuscular Re-Education Therapeutic Exercise Balance Work Patient/Caregiver Education Problem Area: Mobility Mobility Outcomes Improve Arthur w/ Bed Mobility Improve Arthur w/ Ambulation Improve Arthur w/ Stairs /Curb Improve Arthur w/ Wheelchair Mobility Interventions Therapeutic Exercise Neuromuscular Re-Ed. Activity Tolerance Work Use of Assistive Devices Patient/Caregiver Education Bed Mobility Work Gait Training W/C Mobility Work Problem Area: Transfers Transfers Outcomes Improve Arthur w/ Bed Transfers Improve Arthur w/ Toilet Transfers Improve Arthur w/ Tub/ Shower Transfers Improve Arthur w/ Car Transfers Transfers Interventions Transfer Training Therapeutic Exercise Neuromuscular Re-Education Activity Tolerance Work Use of Assistive Devices Patient/Caregiver Education Problem Area: Bowel/Bladder Managment Bowel/Bladder Outcomes Bowel/Bladder Interventions Problem Area: Toileting Toileting Outcomes Improve Arthur w/ Toileting Toileting Interventions ADL Training Balance Work Use of Assistive Devices Patient/Caregiver Education Problem Area: Nutrition Nutrition Outcomes Nutrition Interventions Problem Area: Comprehension Comprehension Outcomes Comprehension Interventions Problem Area: Expression Expression Outcomes Expression Interventions Problem Area: Problem Solving Problem Solving Outcomes Problem Solving Interventions Problem Area: Memory Memory Outcomes Memory Interventions Problem Area: Pain Management Pain Management Outcomes Pain Management Interventions Problem Area: Knowledge Deficits Knowledge Deficits Outcomes Knowledge Deficits Interventions Problem Area: Skin/Tissue Integrity Skin/Tissue Integrity Outcomes Demonstrate Understanding of Pressure Relief Skin/Tissue Integrity Interventions Pressure Relief Instruction Positioning/Turning Problem Area: Social Interaction Social Interaction Outcomes Social Interaction Interventions Problem Area: Adjustment to Disability Adjustment to Disability Outcomes Adjustment to Disability Interventions Problem Area: Discharge Concerns Discharge Concerns Outcomes Discharge w/ Necessary Equipment Have Home Health/Outpatient Services Discharge Concerns Interventions Discharge Planning Family/Caregiver Conference Family/Caregiver Training Problem Area: Community Reintegration Community Reintegration Outcomes Community Reintegration Interventions Problem Area: Home Management Home Management Outcomes Improve Arthur w/ Home Management Home Management Interventions Meal Preparation Clothing Care Activity Tolerance Work Patient/Caregiver Education Problem Area: Safety Safety Outcomes Provide Safe Environment Perform Selfcare Safely Demonstrate Good Safety w/ Transfers/Mobility Safety Interventions Olar Pt. to Environment Reduce Environmental Hazards Implement Mechanical Devices, i.e. Chair Alarm (Post Fall Update) Re-Educate Patient/Caregiver for Safety (Post Fall Update) Problem Area: Medication Education Medication Education Outcomes Patient/Caregiver will Verbalize Understanding of Medications Medication Education Interventions Explain Administration/Side Effects/Interactions Problem Area: Diabetes Education Diabetes Education Outcomes Diabetes Education Interventions Problem Area: Oxygenation Oxygenation Outcomes Maintain Adequate Oxygenation Oxygenation Interventions Assess Respiratory Status Monitor Diagnostic Results Encourage Coughing and Deep Breathing Elevate Head of Bed Problem Area: Cardiovascular Cardiovascular Outcomes Maintain or Improve Cardiovascular Status Cardiovascular Interventions Assess Vital Signs at least Every 4 hours Physician Only Medical Prognosis and Rehabilitation Potential (Completed by Physician) Fair prognosis. Monitor cardiac function. Downsize trach when able. Will need extensive medical guidance to improve. Good rehab potential This plan of care has been developed based on the findings from the pre- admission assessment, post admission physician evaluation, information gathered from the assessments from all therapy disciplines and other pertinent clinicians. The plan of care has been reviewed and discussed in collaboration w ith the interdisciplinary team. The plan of care will be reviewed and updated at least weekly.
[2018-09-02] MEDS: LANTUS SUB-Q SCH (20:50)
[2018-09-02] MEDS: XOPENEX IH SCH (21:04)
--- NOTE | 2018-09-03 05:59 | Progress Note ---
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 sq lantus -Afib/PVD -Dysphagia s/p PEG -Downsized trachesotomy to size #6 shirosa, cuffless -Tolerating capping trials per protocol -Bronchodilators per protocol -Supplemental oxygen to keep O2 sats>99% -Continue PT/OT -Plan to de-canulated prior to discharge if he conitnues to tolerate capping trials -Continue all current supportive care per Rehab team Subjective Date of service: 09/03/18 Principal diagnosis: Debility Interval history: Patient is seen today for: Chronic respiratory failure, s/p trachesotomy Seen and examined at bedside; 24hour events reviewed; nursing and respiratory care staff consulted; no adverse overnight events reported to me; Size #6 tracheostomy , capped Phonating well, not in any distress Objective Vital Signs - 12hr 09/02/18 09/02/18 09/02/18 20:01 21:04 21:17 Temperature 98.3 F Pulse Rate 79 Pulse Rate [ 78 Bilateral Throughout] Respiratory 20 Rate Respiratory 18 Rate [Bilateral Throughout] Respiratory Rate [Head] Blood Pressure 113/68 O2 Sat by Pulse 93 95 Oximetry O2 Sat by Pulse Oximetry [ Assessment] 09/02/18 09/02/18 09/02/18 21:18 21:44 22:00 Temperature Pulse Rate Pulse Rate [ 77 Bilateral Throughout] Respiratory 19 Rate Respiratory 18 Rate [Bilateral Throughout] Respiratory 18 Rate [Head] Blood Pressure O2 Sat by Pulse 97 Oximetry O2 Sat by Pulse Oximetry [ Assessment] 09/02/18 09/02/18 09/03/18 22:17 23:52 00:16 Temperature 97.8 F Pulse Rate 87 Pulse Rate [ Bilateral Throughout] Respiratory 18 20 Rate Respiratory Rate [Bilateral Throughout] Respiratory Rate [Head] Blood Pressure 110/61 O2 Sat by Pulse 92 Oximetry O2 Sat by Pulse 96 Oximetry [ Assessment] Constitutional: no acute distress, alert Eyes: non-icteric ENT: oropharynx moist Neck: supple, no JVD, other (Tracheostomy.) Effort: normal Ascultation: Bilateral: rhonchi Cardiovascular: regular rate and rhythm Gastrointestinal: normoactive bowel sounds, soft, non-tender Integumentary: normal Extremities: no cyanosis, no edema Neurologic: normal mental status, non-focal exam, pupils equal and round, CN II- XII normal Psychiatric: mood appropriate, affect normal CBC and BMP: 09/01/18 04:28 09/01/18 04:28 ABG, PT/INR, D-dimer: ABG POC ABG pH 7.417 (7.35-7.45) 09/01/18 11:52 POC ABG pCO2 50.7 (35-45) H 09/01/18 11:52 POC ABG pO2 53 (80-105) L 09/01/18 11:52 POC ABG HCO3 32.6 09/01/18 11:52 POC ABG Total CO2 34 09/01/18 11:52 POC ABG O2 Sat 87 09/01/18 11:52 Abnormal lab findings: Abnormal Labs 08/31/18 08/31/18 08/31/18 06:31 12:50 16:31 RBC Hgb Hct MCV MCH RDW POC ABG pCO2 POC ABG pO2 Chloride Carbon Dioxide Creatinine Glucose POC Glucose 129 H 144 H Hemoglobin A1c 6.9 H 08/31/18 08/31/18 09/01/18 17:10 22:17 01:54 RBC Hgb Hct MCV MCH RDW POC ABG pCO2 POC ABG pO2 Chloride Carbon Dioxide Creatinine Glucose POC Glucose 133 H 140 H 133 H Hemoglobin A1c 09/01/18 09/01/18 09/01/18 04:28 04:28 06:18 RBC 3.41 L Hgb 11.3 L Hct 34.7 L MCV 102 H MCH 33 H RDW 18.2 H POC ABG pCO2 POC ABG pO2 Chloride 94.8 L Carbon Dioxide 33 H Creatinine 0.5 L Glucose 130 H POC Glucose 130 H Hemoglobin A1c 09/01/18 09/01/18 09/01/18 11:52 14:24 16:37 RBC Hgb Hct MCV MCH RDW POC ABG pCO2 50.7 H POC ABG pO2 53 L Chloride Carbon Dioxide Creatinine Glucose POC Glucose 168 H 142 H Hemoglobin A1c 09/01/18 09/02/18 09/02/18 23:40 06:48 11:41 RBC Hgb Hct MCV MCH RDW POC ABG pCO2 POC ABG pO2 Chloride Carbon Dioxide Creatinine Glucose POC Glucose 129 H 135 H 144 H Hemoglobin A1c 09/02/18 09/03/18 17:29 00:11 RBC Hgb Hct MCV MCH RDW POC ABG pCO2 POC ABG pO2 Chloride Carbon Dioxide Creatinine Glucose POC Glucose 114 H 143 H Hemoglobin A1c
[2018-09-03] MEDS: HumaLOG SUB-Q SCH ×4 (06:32→18:45)
--- NOTE | 2018-09-03 08:22 | Progress Note ---
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 After evaluation by his lance crewmember he was admitted to [facility]. He was found to have atrial fibrillation with RVR, which was refractory to Cardizem drip but improved with amiodarone drip. He developed an acute hypoxemic respiratory failure and was admitted to the ICU and intubated. Patient had a complicated course which included the need for trach/PEG. He developed sepsis and pneumonia which were treated with antibiotics. Osborne was inserted by urology due to obstructive uropathy and a urethral stricture and is to remain in place. He remains on trach with blow by O2. Patient is participating with therapy and making fair progress. +BM. Pain is controlled. PEG tube is ok. Right shoulder pain since using bike, worse with use and better with rest, ty lenol helps somewhat. Requesting Voltaren gel from pharmacy. Vital signs are stable. Hemoglobin is improving. Lantus and sliding scale being held. D/c lantus. Assistant Professor Of Spanish downsized trach, appreciate their assistance. We'll continue the Osborne and I will recheck with the urologist to see if they want to change any management at some point prior to discharge or if they still prefer for the patient to follow-up. CERTIFIED FINANCIAL PLANNER performed MBSS and noted some silent aspiration - rec diet and supervised eating for next week then reassess for independent eating. No further issues from patient, nursing, or therapist. Hospitalist has signed off. All available medical records, therapy notes, vitals and labs were reviewed. Objective - Exam Narrative Exam: MUSCULOSKELETAL SPECIALTY EXAM Constitutional: Well developed, well nourished, appropriately groomed EENT: EOMI. Trach in place with PMV. Hearing intact to finger rustle Respiratory: Rhonchi on ascultation bilaterally, no increased work of breathing, on NC. Cardiovascular Regular Rate/ Rhythm, no swelling edema or tenderness in all 4 extremities. All 4 extremities warm. GI : + bowel sounds, soft, NTTP, nondistended, PEG : Osborne INTEGUMENTARY: Normal in all 4 extremities, scars on LE Musuloskeletal: BUE and BLE normal without defect, crepitus, sublux, effusion, or TTP. BUE and BLE 4-/5, adequate ROM with normal tone. Pain in Right shoulder, POS Fierro, mild TTP over anterior aspect NEURO: CN 2-12 grossly intact. Sensation intact in all extremities. No tremor noted. POSTURE and GAIT: Examined in bed. Deferred until examined with therapy for safety. PSYCH: Alert, orientated x3, affect appears normal. Insight appears intact. - Constitutional Vitals: Vital Signs - 12hr 09/02/18 09/02/18 09/02/18 21:04 21:17 21:18 Temperature Pulse Rate Pulse Rate [ 78 77 Bilateral Throughout] Respiratory Rate Respiratory 18 18 Rate [Bilateral Throughout] Respiratory Rate [Head] Blood Pressure O2 Sat by Pulse 95 Oximetry O2 Sat by Pulse Oximetry [ Assessment] 09/02/18 09/02/18 09/02/18 21:44 22:00 22:17 Temperature Pulse Rate Pulse Rate [ Bilateral Throughout] Respiratory 19 18 Rate Respiratory Rate [Bilateral Throughout] Respiratory 18 Rate [Head] Blood Pressure O2 Sat by Pulse 97 Oximetry O2 Sat by Pulse Oximetry [ Assessment] 09/02/18 09/03/18 09/03/18 23:52 00:16 05:01 Temperature 36.6 C 36.6 C Pulse Rate 87 79 Pulse Rate [ Bilateral Throughout] Respiratory 20 18 Rate Respiratory Rate [Bilateral Throughout] Respiratory Rate [Head] Blood Pressure 110/61 131/71 O2 Sat by Pulse 92 93 Oximetry O2 Sat by Pulse 96 Oximetry [ Assessment] 09/03/18 06:59 Temperature 36.7 C Pulse Rate 79 Pulse Rate [ Bilateral Throughout] Respiratory 20 Rate Respiratory Rate [Bilateral Throughout] Respiratory Rate [Head] Blood Pressure 123/65 O2 Sat by Pulse 92 Oximetry O2 Sat by Pulse Oximetry [ Assessment] - Allied health notes Allied health notes reviewed: nursing, PT, ST, OT, RT FIMS assessment as documented by PT/OT/ST: Grooming Patient cleans teeth/dentures: Yes: gums Patient heck/brushes hair: Yes Patient washes, rinses and Yes dries face: Patient washes, rinses and Yes dries hands: Patient shaves: No Patient performs (no make-up/ 11/17 (100%) shaving): Grooming FIM Score 5. Supervision ([place] applies toothpaste or opens containers.) Toileting Toileting Device Commode over Toilet Patient able to: Adjust clothes before,Clean self,Adjust clothes after Patient able to perform: 3/3 (100%) Toileting FIM Score 4. Minimal Assistance (Patient = 75% or more. Needs touching.) Social interaction/Memory/Problem solving Social Interaction FIM Score 7. Complete [place] (Interacts appropriately. Controls temper.) Memory FIM Score 7. Complete [place] (Remembers people and routines.) Problem Solving FIM Score 7. Complete [place] (Solves complex problems. Self corrects.) Transfers Mode of Locomotion: Wheelchair Bed/Chair/Wheelchair Transfers 3. Moderate Assistance (Patient = 50% or more. FIM Score Some lifting.) Toilet Transfers FIM Score 4. Minimal Assistance (Patient = 75% or more. Needs touching.) Shower Transfers FIM Score 4. Minimal Assistance (Patient = 75% or more. Needs touching.) Locomotion- Stairs Device used on Stairs Handrail/s Number of Stairs Ascended/ 11 Descended Patient used handrail/support: Yes Stairs FIM Score 0. Activity does not occur Locomotion- walk/wheelchair Most Frequent Mode of Walking Locomotion: Ambulation Distance 340 Walking FIM Score 4. Minimal Assistance (Patient = 75% or more. Minimum of 150 ft.) Wheelchair Propulsion Distance 350 Wheelchair FIM Score 6. Modified [place] (Wheels a minimum of 150 ft.) Eating Eating FIM Score 0. Activity does not occur (Does not eat and no tube feeding.) Dressing-Upper body Patient retrieves clothing No items: Patient applies/removes UE n/a prosthesis or orthosis: Upper Body Dressing FIM Score 5. Supv./Set-Up ([place] sets out clothes or applies pros./orth.) Dressing-lower body Patient retrieves clothing No items: Patient applies/removes LE n/a prosthesis or orthosis: Lower Body Dressing FIM Score 4. Minimal Assistance (Patient = 75% or more. Needs touching.) - Labs CBC & Chem 7: 09/01/18 04:28 09/01/18 04:28 Labs: Laboratory Results - last 72 hr 08/31/18 08/31/18 08/31/18 12:50 16:31 17:10 WBC RBC Hgb Hct MCV MCH MCHC RDW Plt Count POC ABG pH POC ABG pCO2 POC ABG pO2 POC ABG HCO3 POC ABG Total CO2 POC ABG O2 Sat POC ABG Base Excess FiO2 Sodium Potassium Chloride Carbon Dioxide Anion Gap BUN Creatinine Estimated GFR BUN/Creatinine Ratio Glucose POC Glucose 144 H 133 H Hemoglobin A1c 6.9 H Calcium 08/31/18 09/01/18 09/01/18 22:17 01:54 04:28 WBC 8.3 RBC 3.41 L Hgb 11.3 L Hct 34.7 L MCV 102 H MCH 33 H MCHC 33 RDW 18.2 H Plt Count 439 POC ABG pH POC ABG pCO2 POC ABG pO2 POC ABG HCO3 POC ABG Total CO2 POC ABG O2 Sat POC ABG Base Excess FiO2 Sodium Potassium Chloride Carbon Dioxide Anion Gap BUN Creatinine Estimated GFR BUN/Creatinine Ratio Glucose POC Glucose 140 H 133 H Hemoglobin A1c Calcium 09/01/18 09/01/18 09/01/18 04:28 06:18 11:52 WBC RBC Hgb Hct MCV MCH MCHC RDW Plt Count POC ABG pH 7.417 POC ABG pCO2 50.7 H POC ABG pO2 53 L POC ABG HCO3 32.6 POC ABG Total CO2 34 POC ABG O2 Sat 87 POC ABG Base Excess 8 FiO2 35 Sodium 137 Potassium 4.3 Chloride 94.8 L Carbon Dioxide 33 H Anion Gap 14 BUN 15 Creatinine 0.5 L Estimated GFR > 60 BUN/Creatinine Ratio 30 Glucose 130 H POC Glucose 130 H Hemoglobin A1c Calcium 9.4 09/01/18 09/01/18 09/01/18 14:24 16:37 23:40 WBC RBC Hgb Hct MCV MCH MCHC RDW Plt Count POC ABG pH POC ABG pCO2 POC ABG pO2 POC ABG HCO3 POC ABG Total CO2 POC ABG O2 Sat POC ABG Base Excess FiO2 Sodium Potassium Chloride Carbon Dioxide Anion Gap BUN Creatinine Estimated GFR BUN/Creatinine Ratio Glucose POC Glucose 168 H 142 H 129 H Hemoglobin A1c Calcium 09/02/18 09/02/18 09/02/18 06:48 11:41 17:29 WBC RBC Hgb Hct MCV MCH MCHC RDW Plt Count POC ABG pH POC ABG pCO2 POC ABG pO2 POC ABG HCO3 POC ABG Total CO2 POC ABG O2 Sat POC ABG Base Excess FiO2 Sodium Potassium Chloride Carbon Dioxide Anion Gap BUN Creatinine Estimated GFR BUN/Creatinine Ratio Glucose POC Glucose 135 H 144 H 114 H Hemoglobin A1c Calcium 09/03/18 09/03/18 00:11 05:56 WBC RBC Hgb Hct MCV MCH MCHC RDW Plt Count POC ABG pH POC ABG pCO2 POC ABG pO2 POC ABG HCO3 POC ABG Total CO2 POC ABG O2 Sat POC ABG Base Excess FiO2 Sodium Potassium Chloride Carbon Dioxide Anion Gap BUN Creatinine Estimated GFR BUN/Creatinine Ratio Glucose POC Glucose 143 H 161 H Hemoglobin A1c Calcium Assessment and Plan Z73.6 ADL dysfunction: OT will work on improving ability to perform ADLs (including assistive devices) to increase independence and decrease caregiver burden and improve functional transfers and mobility training. R26.2 Difficulty walking: PT will work on gait training and proper use of assistive devices and advance as appropriate to use of stairs and outside ambulation on uneven surfaces. R26.81 Unsteadiness on feet: PT will work on improving static and dynamic sitting and standing balance as well as proper use of assistive devices to decrease risk of falls. R26.89 Abnormality of gait: PT will work to improve safety and efficiency of gait through neuromotor training and gait training along with instruction on proper use of assistive devices. M62.81 Muscle weakness: PT & OT will work on strengthening exercises to improve functional strength including mixture of closed and open kinetic chain exercises. R53.81 Debility: PT & OT will work on improving overall functional status to improve participation with ADLs, mobility and social involvement. R53.83 Fatigue: PT & OT will work on improving endurance through aerobic exercises and therapeutic activity while monitoring patients tolerance for activity and vital signs as needed. I10 Hypertension: Cont to monitor, not on anti hypertensives E78.5 Hyperlipidemia: cont statin I48.91 AFib: Continue amiodarone, monitor I50.9 CHF: Continue to monitor, mild. BP and HR would not likely tolerate BB - also on amiodarone. Will discuss with cardiology for input M25.511 R shoulder pain: Cont tylenol, heat in therapy. Requesting voltaren gel from pharmacy Respiratory failure, COPD DVT ppx: on Eliquis Pain: Continue physical modalities in therapy and pain medications as needed to achieve functional pain control. Sleep: Monitor and address as needed. Bowel: Monitor and address as needed. Appetite: Monitor and address as needed when appropriate. NPO, cont TF, supervised feeding with CERTIFIED FINANCIAL PLANNER Discharge planning: Pending therapy progress and care plan meeting. Will continue discussion with therapy team, SW, patient and family. Restrictions/ Precautions: Falls, aspiration WB status: FWB Functional Hx: ADLs: Independent and working Cognition: Independent Mobility: independent Consults: Hospitalist signed off Pulmonology for Pulm/Trach management Appreciate assistance Barriers to Discharge: Decreased mobility and ability to perform self care, weakness, balance deficits Estimated Length of Stay: 14-21 days Discharge Destination: Home with family
[2018-09-03] MEDS: CORDARONE FEEDTUBE SCH ×2 (09:01→21:06)
[2018-09-03] MEDS: VITAMIN B-12 FEEDTUBE SCH (09:01)
[2018-09-03] MEDS: ELIQUIS FEEDTUBE SCH ×2 (09:01→21:06)
[2018-09-03] MEDS: PEPCID FEEDTUBE SCH ×2 (09:02→21:06)
[2018-09-03] MEDS: PRAVACHOL FEEDTUBE SCH (09:02)
[2018-09-03] MEDS: TYLENOL FEEDTUBE PRN ×2 (09:03→20:48)
[2018-09-03] MEDS: PULMICORT IH SCH ×2 (11:08→20:15)
[2018-09-03] MEDS: BROVANA NEBU IH SCH ×2 (11:08→20:15)
[2018-09-03] MEDS: XOPENEX IH SCH ×3 (11:08→20:16)
[2018-09-03] MEDS: LANTUS SUB-Q SCH (22:51)
[2018-09-04] MEDS: HumaLOG SUB-Q SCH ×4 (01:14→18:19)
[2018-09-04] MEDS: XOPENEX IH SCH ×3 (04:44→14:00)
[2018-09-04] MEDS: PULMICORT IH SCH ×2 (07:30→19:42)
[2018-09-04] MEDS: BROVANA NEBU IH SCH ×2 (07:30→19:42)
[2018-09-04] MEDS: PEPCID FEEDTUBE SCH ×2 (08:29→23:38)
[2018-09-04] MEDS: CORDARONE FEEDTUBE SCH ×2 (08:29→23:38)
[2018-09-04] MEDS: VITAMIN B-12 FEEDTUBE SCH (08:29)
[2018-09-04] MEDS: ELIQUIS FEEDTUBE SCH ×3 (08:30→23:38)
[2018-09-04] MEDS: PRAVACHOL FEEDTUBE SCH ×2 (08:30→09:47)
[2018-09-04] MEDS: TYLENOL FEEDTUBE PRN ×2 (08:30→22:35)
--- NOTE | 2018-09-04 14:35 | Progress Note ---
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 sq lantus -Afib/PVD -Dysphagia s/p PEG -Downsized trachesotomy to size #6 shirosa, cuffless -Tolerating capping trials per protocol -Bronchodilators per protocol -Supplemental oxygen to keep O2 sats>99% -Continue PT/OT -Plan to de-canulated prior to discharge if he continues to tolerate capping trials -Continue all current supportive care per Rehab team Subjective Date of service: 09/04/18 Principal diagnosis: Debility Interval history: Patient is seen today for: Chronic respiratory failure, s/p trachesotomy Seen and examined at bedside; 24hour events reviewed; nursing and respiratory care staff consulted; no adverse overnight events reported to me; Size #6 tracheostomy , capped Phonating well, not in any distress Objective Vital Signs - 12hr 09/04/18 09/04/18 09/04/18 07:30 07:35 07:40 Temperature 98.0 F Pulse Rate 81 Pulse Rate [ 95 H 96 H Bilateral Throughout] Respiratory 18 Rate Respiratory 18 18 Rate [Bilateral Throughout] Blood Pressure 113/65 O2 Sat by Pulse 89 Oximetry O2 Sat by Pulse Oximetry [ Assessment] 09/04/18 09/04/18 09/04/18 07:50 08:30 10:00 Temperature Pulse Rate Pulse Rate [ Bilateral Throughout] Respiratory 22 Rate Respiratory Rate [Bilateral Throughout] Blood Pressure O2 Sat by Pulse 95 95 Oximetry O2 Sat by Pulse 95 Oximetry [ Assessment] 09/04/18 09/04/18 10:57 11:00 Temperature 98.0 F Pulse Rate 78 Pulse Rate [ Bilateral Throughout] Respiratory 22 Rate Respiratory Rate [Bilateral Throughout] Blood Pressure 113/62 O2 Sat by Pulse 89 94 Oximetry O2 Sat by Pulse Oximetry [ Assessment] Constitutional: no acute distress, alert Eyes: non-icteric ENT: oropharynx moist Neck: supple, no JVD, other (Tracheostomy.) Effort: normal Ascultation: Bilateral: rhonchi Cardiovascular: regular rate and rhythm Gastrointestinal: normoactive bowel sounds, soft, non-tender Integumentary: normal Extremities: no cyanosis, no edema Neurologic: normal mental status, non-focal exam, pupils equal and round, CN II- XII normal Psychiatric: mood appropriate, affect normal CBC and BMP: 09/01/18 04:28 09/01/18 04:28 ABG, PT/INR, D-dimer: ABG POC ABG pH 7.417 (7.35-7.45) 09/01/18 11:52 POC ABG pCO2 50.7 (35-45) H 09/01/18 11:52 POC ABG pO2 53 (80-105) L 09/01/18 11:52 POC ABG HCO3 32.6 09/01/18 11:52 POC ABG Total CO2 34 09/01/18 11:52 POC ABG O2 Sat 87 09/01/18 11:52 Abnormal lab findings: Abnormal Labs 08/31/18 08/31/18 08/31/18 06:31 12:50 16:31 RBC Hgb Hct MCV MCH RDW POC ABG pCO2 POC ABG pO2 Chloride Carbon Dioxide Creatinine Glucose POC Glucose 129 H 144 H Hemoglobin A1c 6.9 H 08/31/18 08/31/18 09/01/18 17:10 22:17 01:54 RBC Hgb Hct MCV MCH RDW POC ABG pCO2 POC ABG pO2 Chloride Carbon Dioxide Creatinine Glucose POC Glucose 133 H 140 H 133 H Hemoglobin A1c 09/01/18 09/01/18 09/01/18 04:28 04:28 06:18 RBC 3.41 L Hgb 11.3 L Hct 34.7 L MCV 102 H MCH 33 H RDW 18.2 H POC ABG pCO2 POC ABG pO2 Chloride 94.8 L Carbon Dioxide 33 H Creatinine 0.5 L Glucose 130 H POC Glucose 130 H Hemoglobin A1c 09/01/18 09/01/18 09/01/18 11:52 14:24 16:37 RBC Hgb Hct MCV MCH RDW POC ABG pCO2 50.7 H POC ABG pO2 53 L Chloride Carbon Dioxide Creatinine Glucose POC Glucose 168 H 142 H Hemoglobin A1c 09/01/18 09/02/18 09/02/18 23:40 06:48 11:41 RBC Hgb Hct MCV MCH RDW POC ABG pCO2 POC ABG pO2 Chloride Carbon Dioxide Creatinine Glucose POC Glucose 129 H 135 H 144 H Hemoglobin A1c 09/02/18 09/03/18 09/03/18 17:29 00:11 05:56 RBC Hgb Hct MCV MCH RDW POC ABG pCO2 POC ABG pO2 Chloride Carbon Dioxide Creatinine Glucose POC Glucose 114 H 143 H 161 H Hemoglobin A1c 09/03/18 09/03/18 09/03/18 11:25 17:25 22:47 RBC Hgb Hct MCV MCH RDW POC ABG pCO2 POC ABG pO2 Chloride Carbon Dioxide Creatinine Glucose POC Glucose 125 H 125 H 112 H Hemoglobin A1c Allied health notes reviewed: PT
[2018-09-04] MEDS: LANTUS SUB-Q SCH (23:39)
[2018-09-05] MEDS: HumaLOG SUB-Q SCH ×4 (04:15→18:00)
[2018-09-05] MEDS: XOPENEX IH SCH ×3 (08:10→20:00)
[2018-09-05] MEDS: BROVANA NEBU IH SCH ×2 (08:10→19:26)
[2018-09-05] MEDS: PULMICORT IH SCH ×2 (08:10→19:26)
[2018-09-05] MEDS: TYLENOL FEEDTUBE PRN ×3 (08:47→22:17)
[2018-09-05] MEDS: VITAMIN B-12 FEEDTUBE SCH (08:49)
[2018-09-05] MEDS: ELIQUIS FEEDTUBE SCH ×3 (08:50→22:14)
[2018-09-05] MEDS: PEPCID FEEDTUBE SCH ×2 (08:50→22:14)
[2018-09-05] MEDS: PRAVACHOL FEEDTUBE SCH ×2 (08:51→10:00)
--- NOTE | 2018-09-05 14:26 | Progress Note ---
Assessment and Plan Patient alert, awake. Says feeling better and breathing better.No complaint of chest pain or shortness of breath at rest. Trach tube is capped. On 2 litres O2, O2 saturation 92%. Continue rehabilitation. - Patient Problems (1) Acute respiratory failure Current Visit: No Status: Acute Qualifiers: Respiratory failure complication: hypoxia Qualified Code(s): J96.01 - Acute respiratory failure with hypoxia Plan to address problem: CAP trach tube as tolerated. O2 2 litres via nasal canula. Brovanna/Budesonide aerosol treatments q 12 hours. Xopenx aerosol treatments q 8 hours prn for shortness of breath. Patient is on Apixaban. Continue famotidine. (2) ARF (acute renal failure) with tubular necrosis Current Visit: No Status: Acute Plan to address problem: Management as per nephrology. (3) Atrial fibrillation with RVR Current Visit: No Status: Acute Plan to address problem: Management as per cardiology. Patient is on Apixaban. (4) CHF (congestive heart failure) Current Visit: No Status: Acute Qualifiers: Heart failure type: systolic Heart failure chronicity: acute Qualified Code(s): I50.21 - Acute systolic (congestive) heart failure Plan to address problem: Mangemet as per cardiology. (5) COPD exacerbation Current Visit: No Status: Acute Plan to address problem: AP trach tube as tolerated. O2 2 litres via nasal canula. Brovanna/Budesonide aerosol treatments q 12 hours. Xopenx aerosol treatments q 8 hours prn for shortness of breath. Patient is on Apixaban. Continue famotidine Subjective Date of service: 09/05/18 Principal diagnosis: Debility Interval history: Patient alert, awake. Says feeling better and breathing better.No complaint of chest pain or shortness of breath at rest. Trach tube is capped. On 2 litres O2, O2 saturation 92%. Continue rehabilitation. Objective Vital Signs - 12hr 09/05/18 09/05/18 09/05/18 04:08 07:39 07:40 Temperature 97.8 F Pulse Rate 85 84 Pulse Rate [ Bilateral Throughout] Respiratory 18 Rate Respiratory Rate [Bilateral Throughout] Blood Pressure 125/66 Blood Pressure [Left] O2 Sat by Pulse 96 82 L 84 Oximetry O2 Sat by Pulse Oximetry [ Assessment] 09/05/18 09/05/18 09/05/18 08:10 08:20 11:55 Temperature 97.2 F L Pulse Rate 87 Pulse Rate [ 88 92 H Bilateral Throughout] Respiratory 19 Rate Respiratory 18 18 Rate [Bilateral Throughout] Blood Pressure Blood Pressure 127/67 [Left] O2 Sat by Pulse 94 95 Oximetry O2 Sat by Pulse 94 Oximetry [ Assessment] Constitutional: no acute distress, alert Eyes: non-icteric ENT: oropharynx moist Neck: supple, no JVD, other (Tracheostomy and trach tube is capped.) Effort: normal Ascultation: Bilateral: diminished breath sounds Cardiovascular: regular rate and rhythm Gastrointestinal: normoactive bowel sounds, soft, non-tender Integumentary: normal Extremities: no cyanosis, no edema Neurologic: normal mental status, non-focal exam, pupils equal and round, CN II- XII normal Psychiatric: mood appropriate, affect normal CBC and BMP: 09/01/18 04:28 09/01/18 04:28 ABG, PT/INR, D-dimer: ABG POC ABG pH 7.417 (7.35-7.45) 09/01/18 11:52 POC ABG pCO2 50.7 (35-45) H 09/01/18 11:52 POC ABG pO2 53 (80-105) L 09/01/18 11:52 POC ABG HCO3 32.6 09/01/18 11:52 POC ABG Total CO2 34 09/01/18 11:52 POC ABG O2 Sat 87 09/01/18 11:52 Abnormal lab findings: Abnormal Labs 08/31/18 08/31/18 08/31/18 06:31 12:50 16:31 RBC Hgb Hct MCV MCH RDW POC ABG pCO2 POC ABG pO2 Chloride Carbon Dioxide Creatinine Glucose POC Glucose 129 H 144 H Hemoglobin A1c 6.9 H 08/31/18 08/31/18 09/01/18 17:10 22:17 01:54 RBC Hgb Hct MCV MCH RDW POC ABG pCO2 POC ABG pO2 Chloride Carbon Dioxide Creatinine Glucose POC Glucose 133 H 140 H 133 H Hemoglobin A1c 09/01/18 09/01/18 09/01/18 04:28 04:28 06:18 RBC 3.41 L Hgb 11.3 L Hct 34.7 L MCV 102 H MCH 33 H RDW 18.2 H POC ABG pCO2 POC ABG pO2 Chloride 94.8 L Carbon Dioxide 33 H Creatinine 0.5 L Glucose 130 H POC Glucose 130 H Hemoglobin A1c 09/01/18 09/01/18 09/01/18 11:52 14:24 16:37 RBC Hgb Hct MCV MCH RDW POC ABG pCO2 50.7 H POC ABG pO2 53 L Chloride Carbon Dioxide Creatinine Glucose POC Glucose 168 H 142 H Hemoglobin A1c 09/01/18 09/02/18 09/02/18 23:40 06:48 11:41 RBC Hgb Hct MCV MCH RDW POC ABG pCO2 POC ABG pO2 Chloride Carbon Dioxide Creatinine Glucose POC Glucose 129 H 135 H 144 H Hemoglobin A1c 09/02/18 09/03/18 09/03/18 17:29 00:11 05:56 RBC Hgb Hct MCV MCH RDW POC ABG pCO2 POC ABG pO2 Chloride Carbon Dioxide Creatinine Glucose POC Glucose 114 H 143 H 161 H Hemoglobin A1c 09/03/18 09/03/18 09/03/18 11:25 17:25 22:47 RBC Hgb Hct MCV MCH RDW POC ABG pCO2 POC ABG pO2 Chloride Carbon Dioxide Creatinine Glucose POC Glucose 125 H 125 H 112 H Hemoglobin A1c 09/04/18 09/04/18 09/04/18 11:02 17:43 22:23 RBC Hgb Hct MCV MCH RDW POC ABG pCO2 POC ABG pO2 Chloride Carbon Dioxide Creatinine Glucose POC Glucose 143 H 169 H 114 H Hemoglobin A1c 09/05/18 11:29 RBC Hgb Hct MCV MCH RDW POC ABG pCO2 POC ABG pO2 Chloride Carbon Dioxide Creatinine Glucose POC Glucose 130 H Hemoglobin A1c Chest x-ray: report reviewed (No acute cardiopulmonary process.), image reviewed Allied health notes reviewed: PT
[2018-09-05] MEDS: CORDARONE FEEDTUBE SCH ×2 (17:28→22:14)
[2018-09-05] MEDS: LANTUS SUB-Q SCH (22:15)
[2018-09-06] MEDS: HumaLOG SUB-Q SCH ×4 (01:09→18:06)
[2018-09-06] MEDS: XOPENEX IH SCH ×4 (02:35→19:35)
[2018-09-06] MEDS: TYLENOL FEEDTUBE PRN ×3 (07:58→21:20)
--- NOTE | 2018-09-06 08:00 | Progress Note ---
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 After evaluation by his society editor he was admitted to [facility]. He was found to have atrial fibrillation with RVR, which was refractory to Cardizem drip but improved with amiodarone drip. He developed an acute hypoxemic respiratory failure and was admitted to the ICU and intubated. Patient had a complicated course which included the need for trach/PEG. He developed sepsis and pneumonia which were treated with antibiotics. Osborne was inserted by urology due to obstructive uropathy and a urethral stricture and is to remain in place. He remains on trach with blow by O2. Patient is participating with therapy and making fair progress. +BM. Pain is controlled. PEG tube is ok. Eating PO. Right shoulder pain since using bike, worse with use and better with rest, tylenol helps somewhat. Requesting Voltaren gel from pharmacy. Vital signs are stable. Hemoglobin is improving. GLU in good range, continue to cover with SSI and monitor We'll continue the Osborne and I will recheck with the urologist to see if they want to change any management at some point prior to discharge or if they still prefer for the patient to follow-up. No further issues from patient, nursing, or therapist. Discussed in Team Conference All available medical records, therapy notes, vitals and labs were reviewed. Objective - Exam Narrative Exam: MUSCULOSKELETAL SPECIALTY EXAM Constitutional: Well developed, well nourished, appropriately groomed EENT: EOMI. Trach in place with PMV. Hearing intact to voice Respiratory: Clear to ascultation bilaterally, decreased at bases, no increased work of rubi athing, on NC. Cardiovascular Regular Rate/ Rhythm, no swelling edema or tenderness in all 4 extremities. All 4 extremities warm. GI : + bowel sounds, soft, NTTP, nondistended, PEG : Osborne INTEGUMENTARY: Normal in all 4 extremities, scars on LE Musuloskeletal: BUE and BLE normal without defect, crepitus, sublux, effusion, or TTP. BUE and BLE 4-/5, adequate ROM with normal tone. Pain in Right shoulder, mild TTP over anterior aspect NEURO: CN 2-12 grossly intact. Sensation intact in all extremities. No tremor noted. POSTURE and GAIT: Examined in bed. Deferred until examined with therapy for safety. PSYCH: Alert, orientated x3, affect appears normal. Insight appears intact. - Constitutional Vitals: Vital Signs - 12hr 09/06/18 09/06/18 09/06/18 00:30 03:25 03:56 Temperature 36.3 C L 36.8 C Pulse Rate 74 72 Respiratory 18 18 Rate Blood Pressure 124/66 121/69 O2 Sat by Pulse 92 93 Oximetry O2 Sat by Pulse 94 Oximetry [ Assessment] - Allied health notes Allied health notes reviewed: nursing, PT, ST, OT FIMS assessment as documented by PT/OT/ST: Grooming Patient cleans teeth/dentures: Yes: gums Patient heck/brushes hair: Yes Patient washes, rinses and Yes dries face: Patient washes, rinses and Yes dries hands: Patient shaves: No Patient performs (no make-up/ 4/4 (100%) shaving): Grooming FIM Score 5. Supervision ([place] applies toothpaste or opens containers.) Toileting Toileting Device Commode over Toilet Patient able to: Adjust clothes before,Clean self,Adjust clothes after Patient able to perform: 3/3 (100%) Toileting FIM Score 4. Minimal Assistance (Patient = 75% or more. Needs touching.) Social interaction/Memory/Problem solving Social Interaction FIM Score 7. Complete Yell (Interacts appropriately. Controls temper.) Memory FIM Score 7. Complete Yell (Remembers people and routines.) Problem Solving FIM Score 7. Complete Yell (Solves complex problems. Self corrects.) Transfers Mode of Locomotion: Wheelchair Bed/Chair/Wheelchair Transfers 3. Moderate Assistance (Patient = 50% or more. FIM Score Some lifting.) Toilet Transfers FIM Score 3. Moderate Assistance (Patient = 50% or more. Some lifting.) Shower Transfers FIM Score 4. Minimal Assistance (Patient = 75% or more. Needs touching.) Locomotion- Stairs Device used on Stairs Handrail/s Number of Stairs Ascended/ 11 Descended Patient used handrail/support: Yes Stairs FIM Score 4. Minimal Assistance (Patient = 75% or more, touching. 12-14 stairs.) Locomotion- walk/wheelchair Most Frequent Mode of Walking Locomotion: Ambulation Distance 725 Walking FIM Score 5. Supervision (Minimum 150 ft. supv./cues or 50 ft. independently.) Wheelchair Propulsion Distance 350 Wheelchair FIM Score 6. Modified Yell (Wheels a minimum of 150 ft.) Eating Eating FIM Score 5. Supervision/Set-Up (Needs help w/ containers, cutting meat, etc.) Dressing-Upper body Patient retrieves clothing No items: Patient applies/removes UE n/a prosthesis or orthosis: Upper Body Dressing FIM Score 5. Supv./Set-Up (Graton sets out clothes or applies pros./orth.) Dressing-lower body Patient retrieves clothing No items: Patient applies/removes LE n/a prosthesis or orthosis: Lower Body Dressing FIM Score 4. Minimal Assistance (Patient = 75% or more. Needs touching.) - Labs CBC & Chem 7: 09/01/18 04:28 09/01/18 04:28 Labs: Laboratory Results - last 72 hr 09/03/18 09/03/18 09/03/18 11:25 17:25 22:47 POC Glucose 125 H 125 H 112 H 09/04/18 09/04/18 09/04/18 06:03 11:02 17:43 POC Glucose 104 143 H 169 H 09/04/18 09/05/18 09/05/18 22:23 05:48 11:29 POC Glucose 114 H 93 130 H 09/05/18 09/06/18 09/06/18 17:56 01:08 07:03 POC Glucose 137 H 108 H 105 Assessment and Plan Z73.6 ADL dysfunction: OT will work on improving ability to perform ADLs (including assistive devices) to increase independence and decrease caregiver burden and improve functional transfers and mobility training. R26.2 Difficulty walking: PT will work on gait training and proper use of assistive devices and advance as appropriate to use of stairs and outside ambulation on uneven surfaces. R26.81 Unsteadiness on feet: PT will work on improving static and dynamic sitting and standing balance as well as proper use of assistive devices to decrease risk of falls. R26.89 Abnormality of gait: PT will work to improve safety and efficiency of gait through neuromotor training and gait training along with instruction on proper use of assistive devices. M62.81 Muscle weakness: PT & OT will work on strengthening exercises to improve functional strength including mixture of closed and open kinetic chain exercises. R53.81 Debility: PT & OT will work on improving overall functional status to improve participation with ADLs, mobility and social involvement. R53.83 Fatigue: PT & OT will work on improving endurance through aerobic exerci ses and therapeutic activity while monitoring patients tolerance for activity and vital signs as needed. I10 Hypertension: Cont to monitor, not on anti hypertensives E78.5 Hyperlipidemia: cont statin I48.91 AFib: reduce amiodarone per cardiology, monitor CHF: Discussed with cardiology - diastolic dysfunction, no need for BB M25.511 R shoulder pain: Cont tylenol, heat in therapy. Requesting voltaren gel from pharmacy Respiratory failure, COPD DVT ppx: on Eliquis Pain: Continue physical modalities in therapy and pain medications as needed to achieve functional pain control. Sleep: Monitor and address as needed. Bowel: Monitor and address as needed. Appetite: Monitor and address as needed when appropriate. NPO, cont TF, supervised feeding with [employer] Discharge planning: Pending therapy progress and care plan meeting. Will continue discussion with therapy team, SW, patient and family. Restrictions/ Precautions: Falls, aspiration WB status: FWB Functional Hx: ADLs: Independent and working Cognition: Independent Mobility: independent Consults: Pulmonology for Pulm/Trach management Appreciate assistance Barriers to Discharge: Decreased mobility and ability to perform self care, weakness, balance deficits Estimated Length of Stay: 14-21 days Discharge Destination: Home with family
[2018-09-06] MEDS: PEPCID FEEDTUBE SCH ×2 (08:10→21:18)
[2018-09-06] MEDS: VITAMIN B-12 FEEDTUBE SCH (08:10)
[2018-09-06] MEDS: CORDARONE FEEDTUBE SCH (08:10)
[2018-09-06] MEDS: BROVANA NEBU IH SCH ×2 (09:32→19:35)
[2018-09-06] MEDS: PULMICORT IH SCH ×2 (09:32→19:35)
[2018-09-06] MEDS: ELIQUIS FEEDTUBE SCH ×2 (10:52→21:18)
[2018-09-06] MEDS: PRAVACHOL FEEDTUBE SCH (10:53)
--- NOTE | 2018-09-06 14:45 | Progress Note ---
Assessment and Plan Patient alert, awake.Sitting up in chair. Says feeling better and breathing better. No complaint of chest pain or shortness of breath at rest. Trach tube is capped. On 2 litres O2, O2 saturation 94%. Continue rehabilitation. - Patient Problems (1) Acute respiratory failure Current Visit: No Status: Acute Qualifiers: Respiratory failure complication: hypoxia Qualified Code(s): J96.01 - Acute respiratory failure with hypoxia Plan to address problem: CAP trach tube as tolerated. O2 2 litres via nasal canula. Brovanna/Budesonide aerosol treatments q 12 hours. Xopenx aerosol treatments q 8 hours prn for shortness of breath. Patient is on Apixaban. Continue famotidine. (2) ARF (acute renal failure) with tubular necrosis Current Visit: No Status: Acute Plan to address problem: Management as per nephrology. (3) Atrial fibrillation with RVR Current Visit: No Status: Acute Plan to address problem: Management as per cardiology. Patient is on Apixaban. (4) CHF (congestive heart failure) Current Visit: No Status: Acute Qualifiers: Heart failure type: systolic Heart failure chronicity: acute Qualified Code(s): I50.21 - Acute systolic (congestive) heart failure Plan to address problem: Mangemet as per cardiology. (5) COPD exacerbation Current Visit: No Status: Acute Plan to address problem: AP trach tube as tolerated. O2 2 litres via nasal canula. Brovanna/Budesonide aerosol treatments q 12 hours. Xopenx aerosol treatments q 8 hours prn for shortness of breath. Patient is on Apixaban. Continue famotidine Subjective Date of service: 09/06/18 Principal diagnosis: Debility Interval history: Patient alert, awake.Sitting up in chair. Says feeling better and breathing better. No complaint of chest pain or shortness of breath at rest. Trach tube is capped. On 2 litres O2, O2 saturation 94%. Continue rehabilitation. Objective Vital Signs - 12hr 09/06/18 09/06/18 09/06/18 03:25 03:56 07:38 Temperature 98.2 F 97.8 F Pulse Rate 72 77 Respiratory 18 18 Rate Blood Pressure 121/69 127/69 Blood Pressure [Left] O2 Sat by Pulse 93 91 Oximetry O2 Sat by Pulse 94 Oximetry [ Assessment] 09/06/18 09/06/18 09/06/18 10:00 12:00 14:34 Temperature 97.8 F Pulse Rate 76 Respiratory 18 Rate Blood Pressure Blood Pressure 124/68 [Left] O2 Sat by Pulse 97 95 Oximetry O2 Sat by Pulse 97 Oximetry [ Assessment] 09/06/18 14:38 Temperature Pulse Rate Respiratory Rate Blood Pressure Blood Pressure [Left] O2 Sat by Pulse 97 Oximetry O2 Sat by Pulse Oximetry [ Assessment] Constitutional: no acute distress, alert Eyes: non-icteric ENT: oropharynx moist Neck: supple, no JVD, other (Tracheostomy and trach tube is capped.) Effort: normal Ascultation: Bilateral: diminished breath sounds, rhonchi Cardiovascular: regular rate and rhythm Gastrointestinal: normoactive bowel sounds, soft, non-tender Integumentary: normal Extremities: no cyanosis, no edema Neurologic: normal mental status, non-focal exam, pupils equal and round, CN II- XII normal Psychiatric: mood appropriate, affect normal CBC and BMP: 09/01/18 04:28 09/01/18 04:28 ABG, PT/INR, D-dimer: ABG POC ABG pH 7.417 (7.35-7.45) 09/01/18 11:52 POC ABG pCO2 50.7 (35-45) H 09/01/18 11:52 POC ABG pO2 53 (80-105) L 09/01/18 11:52 POC ABG HCO3 32.6 09/01/18 11:52 POC ABG Total CO2 34 09/01/18 11:52 POC ABG O2 Sat 87 09/01/18 11:52 Abnormal lab findings: Abnormal Labs 08/31/18 08/31/18 08/31/18 06:31 12:50 16:31 RBC Hgb Hct MCV MCH RDW POC ABG pCO2 POC ABG pO2 Chloride Carbon Dioxide Creatinine Glucose POC Glucose 129 H 144 H Hemoglobin A1c 6.9 H 08/31/18 08/31/18 09/01/18 17:10 22:17 01:54 RBC Hgb Hct MCV MCH RDW POC ABG pCO2 POC ABG pO2 Chloride Carbon Dioxide Creatinine Glucose POC Glucose 133 H 140 H 133 H Hemoglobin A1c 09/01/18 09/01/18 09/01/18 04:28 04:28 06:18 RBC 3.41 L Hgb 11.3 L Hct 34.7 L MCV 102 H MCH 33 H RDW 18.2 H POC ABG pCO2 POC ABG pO2 Chloride 94.8 L Carbon Dioxide 33 H Creatinine 0.5 L Glucose 130 H POC Glucose 130 H Hemoglobin A1c 09/01/18 09/01/18 09/01/18 11:52 14:24 16:37 RBC Hgb Hct MCV MCH RDW POC ABG pCO2 50.7 H POC ABG pO2 53 L Chloride Carbon Dioxide Creatinine Glucose POC Glucose 168 H 142 H Hemoglobin A1c 09/01/18 09/02/18 09/02/18 23:40 06:48 11:41 RBC Hgb Hct MCV MCH RDW POC ABG pCO2 POC ABG pO2 Chloride Carbon Dioxide Creatinine Glucose POC Glucose 129 H 135 H 144 H Hemoglobin A1c 09/02/18 09/03/18 09/03/18 17:29 00:11 05:56 RBC Hgb Hct MCV MCH RDW POC ABG pCO2 POC ABG pO2 Chloride Carbon Dioxide Creatinine Glucose POC Glucose 114 H 143 H 161 H Hemoglobin A1c 09/03/18 09/03/18 09/03/18 11:25 17:25 22:47 RBC Hgb Hct MCV MCH RDW POC ABG pCO2 POC ABG pO2 Chloride Carbon Dioxide Creatinine Glucose POC Glucose 125 H 125 H 112 H Hemoglobin A1c 09/04/18 09/04/18 09/04/18 11:02 17:43 22:23 RBC Hgb Hct MCV MCH RDW POC ABG pCO2 POC ABG pO2 Chloride Carbon Dioxide Creatinine Glucose POC Glucose 143 H 169 H 114 H Hemoglobin A1c 09/05/18 09/05/18 09/06/18 11:29 17:56 01:08 RBC Hgb Hct MCV MCH RDW POC ABG pCO2 POC ABG pO2 Chloride Carbon Dioxide Creatinine Glucose POC Glucose 130 H 137 H 108 H Hemoglobin A1c Allied health notes reviewed: PT
[2018-09-06] MEDS ORDERED: XOPENEX IH ONE (15:35)
[2018-09-06] MEDS: LANTUS SUB-Q SCH (21:20)
[2018-09-07] MEDS: HumaLOG SUB-Q SCH ×4 (00:02→22:51)
[2018-09-07] MEDS: XOPENEX IH SCH ×4 (02:14→20:27)
[2018-09-07] MEDS: TYLENOL FEEDTUBE PRN ×3 (06:37→23:12)
[2018-09-07 07:08] LABS: Hematocrit 34.8 % (35.5-45.6); Hemoglobin 11.2 gm/dl (11.8-15.2); Mean Corpuscular HGB Conc 32 % (32-34); Mean Corpuscular Volume 102 fl (84-94); Platelet Count 394 K/mm3 (140-440); Red Blood Count 3.41 M/mm3 (3.65-5.03); Red Cell Distribution Width 18.9 % (13.2-15.2)
[2018-09-07 07:26] LABS: BUN/Creatinine Ratio 22; Blood Urea Nitrogen 13 mg/dL (9-20); Calcium 9.3 mg/dL (8.4-10.2); Hemolysis Index 1
[2018-09-07] MEDS: PULMICORT IH SCH ×2 (08:12→20:27)
[2018-09-07] MEDS: BROVANA NEBU IH SCH ×2 (08:12→20:27)
[2018-09-07] MEDS: PEPCID FEEDTUBE SCH ×2 (10:56→23:12)
[2018-09-07] MEDS: VITAMIN B-12 FEEDTUBE SCH (10:56)
[2018-09-07] MEDS: PRAVACHOL FEEDTUBE SCH (10:56)
[2018-09-07] MEDS: ELIQUIS FEEDTUBE SCH ×2 (10:57→23:12)
[2018-09-07] MEDS: CORDARONE FEEDTUBE SCH (10:57)
--- NOTE | 2018-09-07 18:57 | Progress Note ---
Assessment and Plan Patient alert, awake.Resting in bed. Says feeling better and breathing better. No complaint of chest pain or shortness of breath at rest. Trach tube is capped. On 2 litres O2, O2 saturation 93%. Continue rehabilitation. - Patient Problems (1) Acute respiratory failure Current Visit: No Status: Acute Qualifiers: Respiratory failure complication: hypoxia Qualified Code(s): J96.01 - Acute respiratory failure with hypoxia Plan to address problem: CAP trach tube as tolerated. O2 2 litres via nasal canula. Brovanna/Budesonide aerosol treatments q 12 hours. Xopenx aerosol treatments q 8 hours prn for shortness of breath. Patient is on Apixaban. Continue famotidine. (2) ARF (acute renal failure) with tubular necrosis Current Visit: No Status: Acute Plan to address problem: Management as per nephrology. (3) Atrial fibrillation with RVR Current Visit: No Status: Acute Plan to address problem: Management as per cardiology. Patient is on Apixaban. (4) CHF (congestive heart failure) Current Visit: No Status: Acute Qualifiers: Heart failure type: systolic Heart failure chronicity: acute Qualified Code(s): I50.21 - Acute systolic (congestive) heart failure Plan to address problem: Mangemet as per cardiology. (5) COPD exacerbation Current Visit: No Status: Acute Plan to address problem: AP trach tube as tolerated. O2 2 litres via nasal canula. Brovanna/Budesonide aerosol treatments q 12 hours. Xopenx aerosol treatments q 8 hours prn for shortness of breath. Patient is on Apixaban. Continue famotidine Subjective Date of service: 09/07/18 Principal diagnosis: Debility Interval history: Patient alert, awake.Resting in bed. Says feeling better and breathing better. No complaint of chest pain or shortness of breath at rest. Trach tube is capped. On 2 litres O2, O2 saturation 93%. Continue rehabilitation. Objective Vital Signs - 12hr 09/07/18 09/07/18 09/07/18 07:00 07:21 08:13 Temperature 98.8 F Pulse Rate 72 74 Pulse Rate [ 82 Bilateral Throughout] Respiratory 18 Rate Respiratory 18 Rate [Bilateral Throughout] Blood Pressure 125/60 [Left] O2 Sat by Pulse 95 Oximetry O2 Sat by Pulse Oximetry [ Assessment] 09/07/18 09/07/18 09/07/18 08:15 08:33 12:00 Temperature 98.7 F Pulse Rate 73 Pulse Rate [ 78 Bilateral Throughout] Respiratory 18 Rate Respiratory 20 Rate [Bilateral Throughout] Blood Pressure 134/66 [Left] O2 Sat by Pulse 95 Oximetry O2 Sat by Pulse Oximetry [ Assessment] 09/07/18 09/07/18 09/07/18 13:45 13:59 14:03 Temperature Pulse Rate Pulse Rate [ 83 81 Bilateral Throughout] Respiratory Rate Respiratory 18 20 Rate [Bilateral Throughout] Blood Pressure [Left] O2 Sat by Pulse Oximetry O2 Sat by Pulse 93 Oximetry [ Assessment] 09/07/18 09/07/18 14:42 16:00 Temperature 97.4 F L Pulse Rate 82 84 Pulse Rate [ Bilateral Throughout] Respiratory 18 Rate Respiratory Rate [Bilateral Throughout] Blood Pressure 115/61 [Left] O2 Sat by Pulse 92 Oximetry O2 Sat by Pulse Oximetry [ Assessment] Constitutional: no acute distress, alert Eyes: non-icteric ENT: oropharynx moist Neck: supple, no JVD, other (Tracheostomy and trach tube is capped.) Effort: normal Ascultation: Bilateral: diminished breath sounds, rhonchi Cardiovascular: regular rate and rhythm Gastrointestinal: normoactive bowel sounds, soft, non-tender Integumentary: normal Extremities: no cyanosis, no edema Neurologic: normal mental status, non-focal exam, pupils equal and round, CN II- XII normal Psychiatric: mood appropriate, affect normal CBC and BMP: 09/07/18 06:40 09/07/18 06:40 ABG, PT/INR, D-dimer: ABG POC ABG pH 7.417 (7.35-7.45) 09/01/18 11:52 POC ABG pCO2 50.7 (35-45) H 09/01/18 11:52 POC ABG pO2 53 (80-105) L 09/01/18 11:52 POC ABG HCO3 32.6 09/01/18 11:52 POC ABG Total CO2 34 09/01/18 11:52 POC ABG O2 Sat 87 09/01/18 11:52 Abnormal lab findings: Abnormal Labs 08/31/18 08/31/18 08/31/18 06:31 12:50 16:31 RBC Hgb Hct MCV MCH RDW POC ABG pCO2 POC ABG pO2 Chloride Carbon Dioxide Creatinine Glucose POC Glucose 129 H 144 H Hemoglobin A1c 6.9 H 08/31/18 08/31/18 09/01/18 17:10 22:17 01:54 RBC Hgb Hct MCV MCH RDW POC ABG pCO2 POC ABG pO2 Chloride Carbon Dioxide Creatinine Glucose POC Glucose 133 H 140 H 133 H Hemoglobin A1c 09/01/18 09/01/18 09/01/18 04:28 04:28 06:18 RBC 3.41 L Hgb 11.3 L Hct 34.7 L MCV 102 H MCH 33 H RDW 18.2 H POC ABG pCO2 POC ABG pO2 Chloride 94.8 L Carbon Dioxide 33 H Creatinine 0.5 L Glucose 130 H POC Glucose 130 H Hemoglobin A1c 09/01/18 09/01/18 09/01/18 11:52 14:24 16:37 RBC Hgb Hct MCV MCH RDW POC ABG pCO2 50.7 H POC ABG pO2 53 L Chloride Carbon Dioxide Creatinine Glucose POC Glucose 168 H 142 H Hemoglobin A1c 09/01/18 09/02/18 09/02/18 23:40 06:48 11:41 RBC Hgb Hct MCV MCH RDW POC ABG pCO2 POC ABG pO2 Chloride Carbon Dioxide Creatinine Glucose POC Glucose 129 H 135 H 144 H Hemoglobin A1c 09/02/18 09/03/18 09/03/18 17:29 00:11 05:56 RBC Hgb Hct MCV MCH RDW POC ABG pCO2 POC ABG pO2 Chloride Carbon Dioxide Creatinine Glucose POC Glucose 114 H 143 H 161 H Hemoglobin A1c 09/03/18 09/03/18 09/03/18 11:25 17:25 22:47 RBC Hgb Hct MCV MCH RDW POC ABG pCO2 POC ABG pO2 Chloride Carbon Dioxide Creatinine Glucose POC Glucose 125 H 125 H 112 H Hemoglobin A1c 09/04/18 09/04/18 09/04/18 11:02 17:43 22:23 RBC Hgb Hct MCV MCH RDW POC ABG pCO2 POC ABG pO2 Chloride Carbon Dioxide Creatinine Glucose POC Glucose 143 H 169 H 114 H Hemoglobin A1c 09/05/18 09/05/18 09/06/18 11:29 17:56 01:08 RBC Hgb Hct MCV MCH RDW POC ABG pCO2 POC ABG pO2 Chloride Carbon Dioxide Creatinine Glucose POC Glucose 130 H 137 H 108 H Hemoglobin A1c 09/07/18 09/07/18 06:40 06:40 RBC 3.41 L Hgb 11.2 L Hct 34.8 L MCV 102 H MCH 33 H RDW 18.9 H POC ABG pCO2 POC ABG pO2 Chloride Carbon Dioxide Creatinine 0.6 L Glucose 105 H POC Glucose Hemoglobin A1c Allied health notes reviewed: PT
[2018-09-07] MEDS: LANTUS SUB-Q SCH (22:51)
[2018-09-08] MEDS: HumaLOG SUB-Q SCH ×4 (02:05→17:25)
[2018-09-08] MEDS: XOPENEX IH SCH ×4 (02:25→20:17)
[2018-09-08] MEDS: TYLENOL FEEDTUBE PRN ×3 (08:08→22:27)
[2018-09-08] MEDS: PEPCID FEEDTUBE SCH ×2 (08:08→22:20)
[2018-09-08] MEDS: ELIQUIS FEEDTUBE SCH ×3 (08:09→22:20)
[2018-09-08] MEDS: PRAVACHOL FEEDTUBE SCH ×2 (08:09→10:00)
[2018-09-08] MEDS: VITAMIN B-12 FEEDTUBE SCH (08:10)
--- NOTE | 2018-09-08 08:54 | Progress Note ---
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 After evaluation by his insurance agency sales manager he was admitted to [facility]. He was found to have atrial fibrillation with RVR, which was refractory to Cardizem drip but improved with amiodarone drip. He developed an acute hypoxemic respiratory failure and was admitted to the ICU and intubated. Patient had a complicated course which included the need for trach/PEG. He developed sepsis and pneumonia which were treated with antibiotics. Osborne was inserted by urology due to obstructive uropathy and a urethral stricture and is to remain in place. He remains on trach with blow by O2. Patient is participating with therapy and making fair progress. +BM. Pain is controlled. PEG tube is ok. Eating PO. Right shoulder pain since using bike, worse with use and better with rest, tylenol helps somewhat. Will use heat with therapy. Better today. Vital signs are stable. GLU in good range, continue to cover with SSI and monitor We'll continue the Osborne and I will recheck with the urologist to see if they want to change any management at some point prior to discharge or if they still prefer for the patient to follow-up. No further issues from patient, nursing, or therapist. All available medical records, therapy notes, vitals and labs were reviewed. Objective - Exam Narrative Exam: MUSCULOSKELETAL SPECIALTY EXAM Constitutional: Well developed, well nourished, appropriately groomed EENT: EOMI. Trach in place with PMV. Hearing intact to voice Respiratory: Clear to ascultation bilaterally, decreased at bases, no increased work of breathing, on NC. Cardiovascular Regular Rate/ Rhythm, no swelling edema or tenderness in all 4 extremities. All 4 extremities warm. GI : + bowel sounds, soft, NTTP, nondistended, PEG : Osborne INTEGUMENTARY: Normal in all 4 extremities, scars on LE Musuloskeletal: BUE and BLE normal without defect, crepitus, sublux, effusion, or TTP. BUE and BLE 4-/5, adequate ROM with normal tone. Pain in Right shoulder, mild TTP over anterior aspect NEURO: CN 2-12 grossly intact. Sensation intact in all extremities. No tremor noted. POSTURE and GAIT: Examined in bed. Deferred until examined with therapy for safety. PSYCH: Alert, orientated x3, affect appears normal. Insight appears intact. - Constitutional Vitals: Vital Signs - 12hr 09/08/18 07:56 Temperature 36.6 C Pulse Rate 73 Respiratory 18 Rate Blood Pressure 105/60 [Left] - Allied health notes Allied health notes reviewed: nursing, PT, ST, OT FIMS assessment as documented by PT/OT/ST: Grooming Patient cleans teeth/dentures: Yes: gums Patient heck/brushes hair: Yes Patient washes, rinses and Yes dries face: Patient washes, rinses and Yes dries hands: Patient shaves: No Patient performs (no make-up/ 11/17 (100%) shaving): Grooming FIM Score 5. Supervision ([place] applies toothpaste or opens containers.) Toileting Toileting Device Commode over Toilet Patient able to: Adjust clothes before,Clean self,Adjust clothes after Patient able to perform: 3/3 (100%) Toileting FIM Score 4. Minimal Assistance (Patient = 75% or more. Needs touching.) Social interaction/Memory/Problem solving Social Interaction FIM Score 7. Complete [place] (Interacts appropriately. Controls temper.) Memory FIM Score 7. Complete [place] (Remembers people and routines.) Problem Solving FIM Score 7. Complete [place] (Solves complex problems. Self corrects.) Transfers Mode of Locomotion: Wheelchair Bed/Chair/Wheelchair Transfers 6. Modified [place] (Uses device, sliding FIM Score board, prosth./orth.) Toilet Transfers FIM Score 3. Moderate Assistance (Patient = 50% or more. Some lifting.) Shower Transfers FIM Score 4. Minimal Assistance (Patient = 75% or more. Needs touching.) Locomotion- Stairs Device used on Stairs Handrail/s Number of Stairs Ascended/ 22 Descended Patient used handrail/support: Yes Stairs FIM Score 5. Supervision (12-14 stairs w/ supv. 4-6 stairs independently.) Locomotion- walk/wheelchair Most Frequent Mode of Walking Locomotion: Ambulation Distance 340 Walking FIM Score 5. Supervision (Minimum 150 ft. supv./cues or 50 ft. independently.) Wheelchair Propulsion Distance 350 Wheelchair FIM Score 6. Modified [place] (Wheels a minimum of 150 ft.) Eating Eating FIM Score 5. Supervision/Set-Up (Needs help w/ containers, cutting meat, etc.) Dressing-Upper body Patient retrieves clothing No items: Patient applies/removes UE n/a prosthesis or orthosis: Upper Body Dressing FIM Score 5. Supv./Set-Up ([place] sets out clothes or applies pros./orth.) Dressing-lower body Patient retrieves clothing No items: Patient applies/removes LE n/a prosthesis or orthosis: Lower Body Dressing FIM Score 4. Minimal Assistance (Patient = 75% or more. Needs touching.) - Labs CBC & Chem 7: 09/07/18 06:40 09/07/18 06:40 Labs: Laboratory Results - last 72 hr 09/05/18 09/05/18 09/06/18 11:29 17:56 01:08 WBC RBC Hgb Hct MCV MCH MCHC RDW Plt Count Sodium Potassium Chloride Carbon Dioxide Anion Gap BUN Creatinine Estimated GFR BUN/Creatinine Ratio Glucose POC Glucose 130 H 137 H 108 H Calcium 09/06/18 09/07/18 09/07/18 07:03 06:18 06:40 WBC 8.7 RBC 3.41 L Hgb 11.2 L Hct 34.8 L MCV 102 H MCH 33 H MCHC 32 RDW 18.9 H Plt Count 394 Sodium Potassium Chloride Carbon Dioxide Anion Gap BUN Creatinine Estimated GFR BUN/Creatinine Ratio Glucose POC Glucose 105 97 Calcium 09/07/18 09/07/18 09/07/18 06:40 12:19 22:22 WBC RBC Hgb Hct MCV MCH MCHC RDW Plt Count Sodium 141 Potassium 4.2 Chloride 100.7 Carbon Dioxide 29 Anion Gap 16 BUN 13 Creatinine 0.6 L Estimated GFR > 60 BUN/Creatinine Ratio 22 Glucose 105 H POC Glucose 99 113 H Calcium 9.3 Assessment and Plan Z73.6 ADL dysfunction: OT will work on improving ability to perform ADLs (including assistive devices) to increase independence and decrease caregiver burden and improve functional transfers and mobility training. R26.2 Difficulty walking: PT will work on gait training and proper use of assistive devices and advance as appropriate to use of stairs and outside ambulation on uneven surfaces. R26.81 Unsteadiness on feet: PT will work on improving static and dynamic sitting and standing balance as well as proper use of assistive devices to decrease risk of falls. R26.89 Abnormality of gait: PT will work to improve safety and efficiency of gait through neuromotor training and gait training along with instruction on proper use of assistive devices. M62.81 Muscle weakness: PT & OT will work on strengthening exercises to improve functional strength including mixture of closed and open kinetic chain exercises. R53.81 Debility: PT & OT will work on improving overall functional status to improve participation with ADLs, mobility and social involvement. R53.83 Fatigue: PT & OT will work on improving endurance through aerobic exercises and therapeutic activity while monitoring patients tolerance for activity and vital signs as needed. I10 Hypertension: Cont to monitor, not on anti hypertensives E78.5 Hyperlipidemia: cont statin I48.91 AFib: Continue amiodarone, monitor M25.511 R shoulder pain: Cont tylenol, heat in therapy. Requesting voltaren gel from pharmacy Respiratory failure, COPD DVT ppx: on Eliquis Pain: Continue physical modalities in therapy and pain medications as needed to achieve functional pain control. Sleep: Monitor and address as needed. Bowel: Monitor and address as needed. Appetite: Monitor and address as needed when appropriate. Discharge planning: Pending therapy progress and care plan meeting. Will contin ue discussion with therapy team, SW, patient and family. Restrictions/ Precautions: Falls, aspiration WB status: FWB Functional Hx: ADLs: Independent and working Cognition: Independent Mobility: independent Consults: Pulmonology for Pulm/Trach management Appreciate assistance Barriers to Discharge: Decreased mobility and ability to perform self care, weakness, balance deficits Estimated Length of Stay: 14-21 days Discharge Destination: Home with family
[2018-09-08] MEDS: PULMICORT IH SCH ×2 (09:45→20:17)
[2018-09-08] MEDS: BROVANA NEBU IH SCH ×2 (09:45→20:17)
[2018-09-08] MEDS: CORDARONE FEEDTUBE SCH (09:46)
--- NOTE | 2018-09-08 10:37 | Progress Note ---
Assessment and Plan Chronic respiratory failure, s/p tracheostomy Hypertension Suspected new onset DM type 2 on sq lantus Afib/PVD Dysphagia s/p PEG - Downsized trachesotomy to size #6 shiley, cuffless - continue capping RTC as tolerated; I have asked RT to document RTC capping over the weekend with plans for tentative decanulation on wednesday. - continue Bronchodilators per protocol - continue Supplemental oxygen to keep O2 sats>99% - Continue PT/OT - Continue all current supportive care per Rehab team ... re-evaluate in am & prn Subjective Date of service: 09/08/18 Principal diagnosis: Debility Interval history: Patient is seen today for: Acute on Chronic Hypoxemic Respiratory failure; AE- COPD; s/p trachesotomy Seen and examined at bedside; 24hour events reviewed; nursing and respiratory care staff consulted; no adverse overnight events reported to me; up in chair; has remained capped RTC without distress; denies acute chest pains or palpitations; remains on supplemental oxygen; No N/V/F/C and tolerating rehabilitation well so far Objective Vital Signs - 12hr 09/08/18 07:56 Temperature 97.8 F Pulse Rate 73 Respiratory 18 Rate Blood Pressure 105/60 [Left] Constitutional: no acute distress, alert Eyes: non-icteric ENT: oropharynx moist Neck: supple, no JVD, other (Tracheostomy and trach tube is capped.) Effort: normal Ascultation: Bilateral: diminished breath sounds, rhonchi (scant) Percussion: Bilateral: not dull Cardiovascular: regular rate and rhythm Gastrointestinal: normoactive bowel sounds, soft, non-tender, non-distended Integumentary: normal Extremities: no cyanosis, no edema, pink and warm, pulses normal, no ischemia or petechiae Neurologic: normal mental status, non-focal exam, pupils equal and round, CN II- XII normal Psychiatric: mood appropriate, affect normal CBC and BMP: 09/07/18 06:40 09/07/18 06:40 ABG, PT/INR, D-dimer: ABG POC ABG pH 7.417 (7.35-7.45) 09/01/18 11:52 POC ABG pCO2 50.7 (35-45) H 09/01/18 11:52 POC ABG pO2 53 (80-105) L 09/01/18 11:52 POC ABG HCO3 32.6 09/01/18 11:52 POC ABG Total CO2 34 09/01/18 11:52 POC ABG O2 Sat 87 09/01/18 11:52 Abnormal lab findings: Abnormal Labs 08/31/18 08/31/18 08/31/18 06:31 12:50 16:31 RBC Hgb Hct MCV MCH RDW POC ABG pCO2 POC ABG pO2 Chloride Carbon Dioxide Creatinine Glucose POC Glucose 129 H 144 H Hemoglobin A1c 6.9 H 08/31/18 08/31/18 09/01/18 17:10 22:17 01:54 RBC Hgb Hct MCV MCH RDW POC ABG pCO2 POC ABG pO2 Chloride Carbon Dioxide Creatinine Glucose POC Glucose 133 H 140 H 133 H Hemoglobin A1c 09/01/18 09/01/18 09/01/18 04:28 04:28 06:18 RBC 3.41 L Hgb 11.3 L Hct 34.7 L MCV 102 H MCH 33 H RDW 18.2 H POC ABG pCO2 POC ABG pO2 Chloride 94.8 L Carbon Dioxide 33 H Creatinine 0.5 L Glucose 130 H POC Glucose 130 H Hemoglobin A1c 09/01/18 09/01/18 09/01/18 11:52 14:24 16:37 RBC Hgb Hct MCV MCH RDW POC ABG pCO2 50.7 H POC ABG pO2 53 L Chloride Carbon Dioxide Creatinine Glucose POC Glucose 168 H 142 H Hemoglobin A1c 09/01/18 09/02/18 09/02/18 23:40 06:48 11:41 RBC Hgb Hct MCV MCH RDW POC ABG pCO2 POC ABG pO2 Chloride Carbon Dioxide Creatinine Glucose POC Glucose 129 H 135 H 144 H Hemoglobin A1c 09/02/18 09/03/18 09/03/18 17:29 00:11 05:56 RBC Hgb Hct MCV MCH RDW POC ABG pCO2 POC ABG pO2 Chloride Carbon Dioxide Creatinine Glucose POC Glucose 114 H 143 H 161 H Hemoglobin A1c 09/03/18 09/03/18 09/03/18 11:25 17:25 22:47 RBC Hgb Hct MCV MCH RDW POC ABG pCO2 POC ABG pO2 Chloride Carbon Dioxide Creatinine Glucose POC Glucose 125 H 125 H 112 H Hemoglobin A1c 09/04/18 09/04/18 09/04/18 11:02 17:43 22:23 RBC Hgb Hct MCV MCH RDW POC ABG pCO2 POC ABG pO2 Chloride Carbon Dioxide Creatinine Glucose POC Glucose 143 H 169 H 114 H Hemoglobin A1c 09/05/18 09/05/18 09/06/18 11:29 17:56 01:08 RBC Hgb Hct MCV MCH RDW POC ABG pCO2 POC ABG pO2 Chloride Carbon Dioxide Creatinine Glucose POC Glucose 130 H 137 H 108 H Hemoglobin A1c 09/07/18 09/07/18 09/07/18 06:40 06:40 22:22 RBC 3.41 L Hgb 11.2 L Hct 34.8 L MCV 102 H MCH 33 H RDW 18.9 H POC ABG pCO2 POC ABG pO2 Chloride Carbon Dioxide Creatinine 0.6 L Glucose 105 H POC Glucose 113 H Hemoglobin A1c Allied health notes reviewed: PT
[2018-09-08] MEDS: LANTUS SUB-Q SCH (22:48)
[2018-09-09] MEDS: HumaLOG SUB-Q SCH ×4 (00:10→18:05)
[2018-09-09] MEDS: XOPENEX IH SCH ×4 (03:41→22:19)
[2018-09-09] MEDS: BROVANA NEBU IH SCH ×2 (07:48→21:40)
[2018-09-09] MEDS: PULMICORT IH SCH ×2 (07:48→21:40)
[2018-09-09] MEDS: PEPCID FEEDTUBE SCH ×2 (07:50→21:22)
[2018-09-09] MEDS: PRAVACHOL FEEDTUBE SCH (07:50)
[2018-09-09] MEDS: TYLENOL FEEDTUBE PRN ×3 (08:07→21:22)
[2018-09-09] MEDS: VITAMIN B-12 FEEDTUBE SCH (08:08)
[2018-09-09] MEDS: ELIQUIS FEEDTUBE SCH ×3 (08:10→21:22)
[2018-09-09] MEDS: CORDARONE FEEDTUBE SCH ×2 (08:10→10:00)
--- NOTE | 2018-09-09 12:32 | Progress Note ---
Assessment and Plan Chronic respiratory failure, s/p tracheostomy Hypertension Suspected new onset DM type 2 on sq lantus Afib/PVD Dysphagia s/p PEG - Downsized trachesotomy to size #6 shiley, cuffless - continue capping RTC as tolerated (I have asked RT to document RTC capping over the weekend with plans for tentative decanulation on wednesday.) - continue Bronchodilators per protocol with pulmonary hygiene per RT - continue inhaled corticosteroids - continue Supplemental oxygen to keep O2 sats>99% - Continue PT/OT - Continue all current supportive care per Rehab team ... re-evaluate in am & prn Subjective Date of service: 09/09/18 Principal diagnosis: Acute on Chronic Hypoxemic Respiratory failure; AE-COPD; s/p trachesotomy Interval history: Patient is seen today for: Acute on Chronic Hypoxemic Respiratory failure; AE- COPD; s/p trachesotomy Seen and examined at bedside; 24hour events reviewed; nursing and respiratory care staff consulted; no adverse overnight events reported to me; up in chair; still tolerating capping; denies acute chest pains or palpitations; No N/V/F/C Objective Vital Signs - 12hr 09/09/18 09/09/18 09/09/18 07:27 07:48 07:49 Temperature 97.5 F L Pulse Rate 78 Pulse Rate [ 79 Bilateral Throughout] Respiratory 22 Rate Respiratory 19 Rate [Bilateral Throughout] Blood Pressure 128/65 O2 Sat by Pulse 92 93 Oximetry O2 Sat by Pulse 93 Oximetry [ Assessment] Constitutional: no acute distress, alert Eyes: non-icteric ENT: oropharynx moist Neck: supple, no JVD, other (Tracheostomy and trach tube is capped.) Effort: normal Ascultation: Bilateral: diminished breath sounds, rhonchi (scant) Percussion: Bilateral: not dull Cardiovascular: regular rate and rhythm Gastrointestinal: normoactive bowel sounds, soft, non-tender, non-distended Integumentary: normal Extremities: no cyanosis, no edema, pink and warm, pulses normal, no ischemia or petechiae Neurologic: normal mental status, non-focal exam, pupils equal and round, CN II- XII normal Psychiatric: mood appropriate, affect normal CBC and BMP: 09/07/18 06:40 09/07/18 06:40 ABG, PT/INR, D-dimer: ABG POC ABG pH 7.417 (7.35-7.45) 09/01/18 11:52 POC ABG pCO2 50.7 (35-45) H 09/01/18 11:52 POC ABG pO2 53 (80-105) L 09/01/18 11:52 POC ABG HCO3 32.6 09/01/18 11:52 POC ABG Total CO2 34 09/01/18 11:52 POC ABG O2 Sat 87 09/01/18 11:52 Abnormal lab findings: Abnormal Labs 08/31/18 08/31/18 08/31/18 06:31 12:50 16:31 RBC Hgb Hct MCV MCH RDW POC ABG pCO2 POC ABG pO2 Chloride Carbon Dioxide Creatinine Glucose POC Glucose 129 H 144 H Hemoglobin A1c 6.9 H 08/31/18 08/31/18 09/01/18 17:10 22:17 01:54 RBC Hgb Hct MCV MCH RDW POC ABG pCO2 POC ABG pO2 Chloride Carbon Dioxide Creatinine Glucose POC Glucose 133 H 140 H 133 H Hemoglobin A1c 09/01/18 09/01/18 09/01/18 04:28 04:28 06:18 RBC 3.41 L Hgb 11.3 L Hct 34.7 L MCV 102 H MCH 33 H RDW 18.2 H POC ABG pCO2 POC ABG pO2 Chloride 94.8 L Carbon Dioxide 33 H Creatinine 0.5 L Glucose 130 H POC Glucose 130 H Hemoglobin A1c 09/01/18 09/01/18 09/01/18 11:52 14:24 16:37 RBC Hgb Hct MCV MCH RDW POC ABG pCO2 50.7 H POC ABG pO2 53 L Chloride Carbon Dioxide Creatinine Glucose POC Glucose 168 H 142 H Hemoglobin A1c 09/01/18 09/02/18 09/02/18 23:40 06:48 11:41 RBC Hgb Hct MCV MCH RDW POC ABG pCO2 POC ABG pO2 Chloride Carbon Dioxide Creatinine Glucose POC Glucose 129 H 135 H 144 H Hemoglobin A1c 09/02/18 09/03/18 09/03/18 17:29 00:11 05:56 RBC Hgb Hct MCV MCH RDW POC ABG pCO2 POC ABG pO2 Chloride Carbon Dioxide Creatinine Glucose POC Glucose 114 H 143 H 161 H Hemoglobin A1c 09/03/18 09/03/18 09/03/18 11:25 17:25 22:47 RBC Hgb Hct MCV MCH RDW POC ABG pCO2 POC ABG pO2 Chloride Carbon Dioxide Creatinine Glucose POC Glucose 125 H 125 H 112 H Hemoglobin A1c 09/04/18 09/04/18 09/04/18 11:02 17:43 22:23 RBC Hgb Hct MCV MCH RDW POC ABG pCO2 POC ABG pO2 Chloride Carbon Dioxide Creatinine Glucose POC Glucose 143 H 169 H 114 H Hemoglobin A1c 09/05/18 09/05/18 09/06/18 11:29 17:56 01:08 RBC Hgb Hct MCV MCH RDW POC ABG pCO2 POC ABG pO2 Chloride Carbon Dioxide Creatinine Glucose POC Glucose 130 H 137 H 108 H Hemoglobin A1c 09/07/18 09/07/18 09/07/18 06:40 06:40 22:22 RBC 3.41 L Hgb 11.2 L Hct 34.8 L MCV 102 H MCH 33 H RDW 18.9 H POC ABG pCO2 POC ABG pO2 Chloride Carbon Dioxide Creatinine 0.6 L Glucose 105 H POC Glucose 113 H Hemoglobin A1c 09/08/18 09/08/18 09/08/18 11:59 17:23 22:12 RBC Hgb Hct MCV MCH RDW POC ABG pCO2 POC ABG pO2 Chloride Carbon Dioxide Creatinine Glucose POC Glucose 141 H 127 H 111 H Hemoglobin A1c Allied health notes reviewed: PT
[2018-09-09] MEDS: LANTUS SUB-Q SCH (23:01)
[2018-09-10] MEDS: HumaLOG SUB-Q SCH ×4 (01:13→17:07)
[2018-09-10] MEDS: XOPENEX IH SCH ×4 (03:18→21:45)
[2018-09-10] MEDS: TYLENOL FEEDTUBE PRN ×3 (06:47→22:35)
[2018-09-10] MEDS: PEPCID FEEDTUBE SCH ×2 (09:02→22:34)
[2018-09-10] MEDS: ELIQUIS FEEDTUBE SCH ×2 (09:02→22:34)
[2018-09-10] MEDS: PRAVACHOL FEEDTUBE SCH (09:02)
[2018-09-10] MEDS: CORDARONE FEEDTUBE SCH (09:02)
[2018-09-10] MEDS: VITAMIN B-12 FEEDTUBE SCH (09:02)
[2018-09-10] MEDS: PULMICORT IH SCH ×2 (09:22→21:43)
[2018-09-10] MEDS: BROVANA NEBU IH SCH ×2 (09:22→21:43)
--- NOTE | 2018-09-10 11:46 | Progress Note ---
Assessment and Plan Chronic respiratory failure, s/p tracheostomy Hypertension Suspected new onset DM type 2 on sq lantus Afib/PVD Dysphagia s/p PEG - Downsized trachesotomy to size #6 shiley, cuffless - continue capping RTC as tolerated (I have asked RT to document RTC capping over the weekend with plans for tentative decanulation on wednesday.) - continue Bronchodilators per protocol with pulmonary hygiene per RT - continue inhaled corticosteroids - continue Supplemental oxygen to keep O2 sats>99% - Continue PT/OT - Continue all current supportive care per Rehab team ... re-evaluate in am & prn Subjective Date of service: 09/10/18 Principal diagnosis: Acute on Chronic Hypoxemic Respiratory failure; AE-COPD; s/p trachesotomy Interval history: Patient is seen today for: Acute on Chronic Hypoxemic Respiratory failure; AE- COPD; s/p trachesotomy Seen and examined at bedside; 24hour events reviewed; nursing and respiratory care staff consulted; no adverse overnight events reported to me; up in chair; still tolerating capping; No N/V/F/C Objective Vital Signs - 12hr 09/10/18 09/10/18 09/10/18 07:00 07:43 07:45 Temperature 98.1 F Pulse Rate 76 78 Pulse Rate [ Bilateral Throughout] Respiratory 18 Rate Respiratory Rate [Bilateral Throughout] Blood Pressure 131/68 [Left] O2 Sat by Pulse 96 96 Oximetry O2 Sat by Pulse 93 Oximetry [ Assessment] 09/10/18 09/10/18 09/10/18 09:15 09:26 09:29 Temperature Pulse Rate Pulse Rate [ 73 78 Bilateral Throughout] Respiratory Rate Respiratory 18 16 Rate [Bilateral Throughout] Blood Pressure [Left] O2 Sat by Pulse 92 Oximetry O2 Sat by Pulse Oximetry [ Assessment] Constitutional: no acute distress, alert Eyes: non-icteric ENT: oropharynx moist Neck: supple, no JVD, other (Tracheostomy and trach tube is capped.) Effort: normal Ascultation: Bilateral: diminished breath sounds, rhonchi (scant) Percussion: Bilateral: not dull Cardiovascular: regular rate and rhythm Gastrointestinal: normoactive bowel sounds, soft, non-tender, non-distended Integumentary: normal Extremities: no cyanosis, no edema, pink and warm, pulses normal, no ischemia or petechiae Neurologic: normal mental status, non-focal exam, pupils equal and round, CN II- XII normal Psychiatric: mood appropriate, affect normal CBC and BMP: 09/07/18 06:40 09/07/18 06:40 ABG, PT/INR, D-dimer: ABG POC ABG pH 7.417 (7.35-7.45) 09/01/18 11:52 POC ABG pCO2 50.7 (35-45) H 09/01/18 11:52 POC ABG pO2 53 (80-105) L 09/01/18 11:52 POC ABG HCO3 32.6 09/01/18 11:52 POC ABG Total CO2 34 09/01/18 11:52 POC ABG O2 Sat 87 09/01/18 11:52 Abnormal lab findings: Abnormal Labs 08/31/18 08/31/18 08/31/18 06:31 12:50 16:31 RBC Hgb Hct MCV MCH RDW POC ABG pCO2 POC ABG pO2 Chloride Carbon Dioxide Creatinine Glucose POC Glucose 129 H 144 H Hemoglobin A1c 6.9 H 08/31/18 08/31/18 09/01/18 17:10 22:17 01:54 RBC Hgb Hct MCV MCH RDW POC ABG pCO2 POC ABG pO2 Chloride Carbon Dioxide Creatinine Glucose POC Glucose 133 H 140 H 133 H Hemoglobin A1c 09/01/18 09/01/18 09/01/18 04:28 04:28 06:18 RBC 3.41 L Hgb 11.3 L Hct 34.7 L MCV 102 H MCH 33 H RDW 18.2 H POC ABG pCO2 POC ABG pO2 Chloride 94.8 L Carbon Dioxide 33 H Creatinine 0.5 L Glucose 130 H POC Glucose 130 H Hemoglobin A1c 09/01/18 09/01/18 09/01/18 11:52 14:24 16:37 RBC Hgb Hct MCV MCH RDW POC ABG pCO2 50.7 H POC ABG pO2 53 L Chloride Carbon Dioxide Creatinine Glucose POC Glucose 168 H 142 H Hemoglobin A1c 09/01/18 09/02/18 09/02/18 23:40 06:48 11:41 RBC Hgb Hct MCV MCH RDW POC ABG pCO2 POC ABG pO2 Chloride Carbon Dioxide Creatinine Glucose POC Glucose 129 H 135 H 144 H Hemoglobin A1c 09/02/18 09/03/18 09/03/18 17:29 00:11 05:56 RBC Hgb Hct MCV MCH RDW POC ABG pCO2 POC ABG pO2 Chloride Carbon Dioxide Creatinine Glucose POC Glucose 114 H 143 H 161 H Hemoglobin A1c 09/03/18 09/03/18 09/03/18 11:25 17:25 22:47 RBC Hgb Hct MCV MCH RDW POC ABG pCO2 POC ABG pO2 Chloride Carbon Dioxide Creatinine Glucose POC Glucose 125 H 125 H 112 H Hemoglobin A1c 09/04/18 09/04/18 09/04/18 11:02 17:43 22:23 RBC Hgb Hct MCV MCH RDW POC ABG pCO2 POC ABG pO2 Chloride Carbon Dioxide Creatinine Glucose POC Glucose 143 H 169 H 114 H Hemoglobin A1c 09/05/18 09/05/18 09/06/18 11:29 17:56 01:08 RBC Hgb Hct MCV MCH RDW POC ABG pCO2 POC ABG pO2 Chloride Carbon Dioxide Creatinine Glucose POC Glucose 130 H 137 H 108 H Hemoglobin A1c 09/07/18 09/07/18 09/07/18 06:40 06:40 22:22 RBC 3.41 L Hgb 11.2 L Hct 34.8 L MCV 102 H MCH 33 H RDW 18.9 H POC ABG pCO2 POC ABG pO2 Chloride Carbon Dioxide Creatinine 0.6 L Glucose 105 H POC Glucose 113 H Hemoglobin A1c 09/08/18 09/08/18 09/08/18 11:59 17:23 22:12 RBC Hgb Hct MCV MCH RDW POC ABG pCO2 POC ABG pO2 Chloride Carbon Dioxide Creatinine Glucose POC Glucose 141 H 127 H 111 H Hemoglobin A1c 09/09/18 09/09/18 09/09/18 12:23 17:14 23:01 RBC Hgb Hct MCV MCH RDW POC ABG pCO2 POC ABG pO2 Chloride Carbon Dioxide Creatinine Glucose POC Glucose 113 H 114 H 122 H Hemoglobin A1c Allied health notes reviewed: PT
--- NOTE | 2018-09-10 12:12 | Progress Note ---
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 He was found to have atrial fibrillation with RVR, which was refractory to Cardizem drip but improved with amiodarone drip. He developed an acute hypoxemic respiratory failure and was admitted to the ICU and intubated. Patient had a complicated course which included the need for trach/PEG. He developed sepsis and pneumonia which were treated with antibiotics. Osborne was inserted by urology due to obstructive uropathy and a urethral stricture and is to remain in place. He remains on trach with blow by O2. Patient is participating with therapy and making fair progress. Endurance and balance improving. Still having some issues with attention to task/distraction. +BM. Pain is controlled. PEG tube is ok. Eating PO. Vital signs are stable. GLU in good range, continue to cover with SSI and monitor We'll continue the Osborne and I will recheck with the urologist to see if they want to change any management at some point prior to discharge or if they still prefer for the patient to follow-up. No further issues from patient, nursing, or therapist. All available medical records, therapy notes, vitals and labs were reviewed. Objective - Exam Narrative Exam: MUSCULOSKELETAL SPECIALTY EXAM Constitutional: Well developed, well nourished, appropriately groomed EENT: EOMI. Trach in place with PMV. Hearing intact to voice Respiratory: Clear to ascultation bilaterally, decreased at bases, no increased work of breathing, on NC. Cardiovascular Regular Rate/ Rhythm, no swelling edema or tenderness in all 4 extremities. All 4 extremities warm. GI : + bowel sounds, soft, NTTP, nondistended, PEG : Osborne INTEGUMENTARY: Normal in all 4 extremities, scars on LE Musuloskeletal: BUE and BLE normal without defect, crepitus, sublux, effusion, or TTP. BUE and BLE 4-/5, adequate ROM with normal tone. Pain in Right shoulder, mild TTP over anterior aspect NEURO: CN 2-12 grossly intact. Sensation intact in all extremities. No tremor noted. POSTURE and GAIT: Posture good, gait slow with occ LOB PSYCH: Alert, orientated x3, affect appears normal. Insight appears intact. - Constitutional Vitals: Vital Signs - 12hr 09/10/18 09/10/18 09/10/18 07:00 07:43 07:45 Temperature 36.7 C Pulse Rate 76 78 Pulse Rate [ Bilateral Throughout] Respiratory 18 Rate Respiratory Rate [Bilateral Throughout] Blood Pressure 131/68 [Left] O2 Sat by Pulse 96 96 Oximetry O2 Sat by Pulse 93 Oximetry [ Assessment] 09/10/18 09/10/18 09/10/18 09:15 09:26 09:29 Temperature Pulse Rate Pulse Rate [ 73 78 Bilateral Throughout] Respiratory Rate Respiratory 18 16 Rate [Bilateral Throughout] Blood Pressure [Left] O2 Sat by Pulse 92 Oximetry O2 Sat by Pulse Oximetry [ Assessment] - Allied health notes Allied health notes reviewed: nursing, PT, ST, OT FIMS assessment as documented by PT/OT/ST: Grooming Patient cleans teeth/dentures: Yes: gums Patient heck/brushes hair: Yes Patient washes, rinses and Yes dries face: Patient washes, rinses and Yes dries hands: Patient shaves: No Patient performs (no make-up/ 4/4 (100%) shaving): Grooming FIM Score 5. Supervision (Frakes applies toothpaste or opens containers.) Toileting Toileting Device Commode over Toilet Patient able to: Adjust clothes before,Clean self,Adjust clothes after Patient able to perform: 3/3 (100%) Toileting FIM Score 4. Minimal Assistance (Patient = 75% or more. Needs touching.) Social interaction/Memory/Problem solving Social Interaction FIM Score 7. Complete [place] (Interacts appropriately. Controls temper.) Memory FIM Score 7. Complete [place] (Remembers people and routines.) Problem Solving FIM Score 7. Complete [place] (Solves complex problems. Self corrects.) Transfers Mode of Locomotion: Wheelchair Bed/Chair/Wheelchair Transfers 6. Modified [place] (Uses device, sliding FIM Score board, prosth./orth.) Toilet Transfers FIM Score 3. Moderate Assistance (Patient = 50% or more. Some lifting.) Shower Transfers FIM Score 4. Minimal Assistance (Patient = 75% or more. Needs touching.) Locomotion- Stairs Device used on Stairs Handrail/s Number of Stairs Ascended/ 20 Descended Patient used handrail/support: Yes Stairs FIM Score 5. Supervision (12-14 stairs w/ supv. 4-6 stairs independently.) Locomotion- walk/wheelchair Most Frequent Mode of Walking Locomotion: Ambulation Distance 725 Walking FIM Score 5. Supervision (Minimum 150 ft. supv./cues or 50 ft. independently.) Wheelchair Propulsion Distance 350 Wheelchair FIM Score 6. Modified [place] (Wheels a minimum of 150 ft.) Eating Eating FIM Score 5. Supervision/Set-Up (Needs help w/ containers, cutting meat, etc.) Dressing-Upper body Patient retrieves clothing No items: Patient applies/removes UE n/a prosthesis or orthosis: Upper Body Dressing FIM Score 5. Supv./Set-Up (Frakes sets out clothes or applies pros./orth.) Dressing-lower body Patient retrieves clothing No items: Patient applies/removes LE n/a prosthesis or orthosis: Lower Body Dressing FIM Score 4. Minimal Assistance (Patient = 75% or more. Needs touching.) - Labs CBC & Chem 7: 09/07/18 06:40 09/07/18 06:40 Labs: Laboratory Results - last 72 hr 09/07/18 09/07/18 09/08/18 12:19 22:22 11:59 POC Glucose 99 113 H 141 H 09/08/18 09/08/18 09/09/18 17:23 22:12 06:03 POC Glucose 127 H 111 H 99 09/09/18 09/09/18 09/09/18 12:23 17:14 23:01 POC Glucose 113 H 114 H 122 H 09/10/18 06:14 POC Glucose 92 Assessment and Plan Z73.6 ADL dysfunction: OT will work on improving ability to perform ADLs (including assistive devices) to increase independence and decrease caregiver burden and improve functional transfers and mobility training. R26.2 Difficulty walking: PT will work on gait training and proper use of assistive devices and advance as appropriate to use of stairs and outside ambulation on uneven surfaces. R26.81 Unsteadiness on feet: PT will work on improving static and dynamic sitting and standing balance as well as proper use of assistive devices to decrease risk of falls. R26.89 Abnormality of gait: PT will work to improve safety and efficiency of gait through neuromotor training and gait training along with instruction on proper use of assistive devices. M62.81 Muscle weakness: PT & OT will work on strengthening exercises to improve functional strength including mixture of closed and open kinetic chain exer cises. R53.81 Debility: PT & OT will work on improving overall functional status to improve participation with ADLs, mobility and social involvement. R53.83 Fatigue: PT & OT will work on improving endurance through aerobic exercises and therapeutic activity while monitoring patients tolerance for a ctivity and vital signs as needed. I10 Hypertension: Cont to monitor, not on anti hypertensives E78.5 Hyperlipidemia: cont statin I48.91 AFib: Continue amiodarone, monitor R13.13 Dysphagia: Continue [employer] and advance as able. FEES or MBSS as needed. Tolerating PO diet (mech soft/ground/nectar) Respiratory failure, COPD DVT ppx: on Eliquis Pain: Continue physical modalities in therapy and pain medications as needed to achieve functional pain control. Sleep: Monitor and address as needed. Bowel: Monitor and address as needed. Appetite: Monitor and address as needed when appropriate. Discharge planning: Pending therapy progress and care plan meeting. Will continue discussion with therapy team, SW, patient and family. Restrictions/ Precautions: Falls, aspiration WB status: FWB Functional Hx: ADLs: Independent and working Cognition: Independent Mobility: independent Consults: Pulmonology for Pulm/Trach management Appreciate assistance Barriers to Discharge: Decreased mobility and ability to perform self care, weakness, balance deficits Estimated Length of Stay: 14-21 days Discharge Destination: Home with family
[2018-09-10] MEDS: LANTUS SUB-Q SCH (22:00)
[2018-09-11] MEDS: XOPENEX IH SCH ×4 (02:06→19:14)
[2018-09-11] MEDS: HumaLOG SUB-Q SCH ×4 (06:00→17:47)
[2018-09-11] MEDS: TYLENOL FEEDTUBE PRN ×3 (07:47→22:56)
[2018-09-11] MEDS: BROVANA NEBU IH SCH ×2 (08:48→19:14)
[2018-09-11] MEDS: PULMICORT IH SCH ×2 (08:48→19:14)
[2018-09-11] MEDS: VITAMIN B-12 FEEDTUBE SCH (09:13)
[2018-09-11] MEDS: PRAVACHOL FEEDTUBE SCH (09:13)
[2018-09-11] MEDS: CORDARONE FEEDTUBE SCH (09:14)
[2018-09-11] MEDS: ELIQUIS FEEDTUBE SCH ×2 (09:14→22:56)
[2018-09-11] MEDS: PEPCID FEEDTUBE SCH ×2 (09:14→22:56)
--- NOTE | 2018-09-11 12:30 | Progress Note ---
Assessment and Plan Chronic respiratory failure, s/p tracheostomy Hypertension Suspected new onset DM type 2 on sq lantus Afib/PVD Dysphagia s/p PEG - Downsized trachesotomy to size #6 shiley, cuffless - continue capping RTC as tolerated (he has tolerated RTC capping so far and will tentatively be decannulated in am) - continue Bronchodilators per protocol with pulmonary hygiene per RT - continue inhaled corticosteroids - continue Supplemental oxygen to keep O2 sats>99% - Continue PT/OT - Continue all current supportive care per Rehab team ... re-evaluate in am & prn Subjective Date of service: 09/11/18 Principal diagnosis: Acute on Chronic Hypoxemic Respiratory failure; AE-COPD; s/p trachesotomy Interval history: Patient is seen today for: Acute on Chronic Hypoxemic Respiratory failure; AE- COPD; s/p trachesotomy Seen and examined at bedside; 24hour events reviewed; nursing and respiratory care staff consulted; no adverse overnight events reported to me; up in chair; still tolerating capping; tolerating rehab exercises' denies acute chest pains or palpitations Objective Vital Signs - 12hr 09/11/18 09/11/18 09/11/18 00:56 07:34 08:48 Temperature 97.3 F L 98.0 F Pulse Rate 87 82 Pulse Rate [ 80 Bilateral Throughout] Respiratory 19 20 Rate Respiratory 20 Rate [Bilateral Throughout] Blood Pressure 107/55 127/60 O2 Sat by Pulse 91 91 Oximetry O2 Sat by Pulse Oximetry [ Assessment] 09/11/18 09/11/18 09/11/18 08:52 09:00 11:17 Temperature 97.7 F Pulse Rate 74 Pulse Rate [ 85 Bilateral Throughout] Respiratory 20 Rate Respiratory 20 Rate [Bilateral Throughout] Blood Pressure 112/61 O2 Sat by Pulse 95 93 94 Oximetry O2 Sat by Pulse 95 Oximetry [ Assessment] Constitutional: no acute distress, alert Eyes: non-icteric ENT: oropharynx moist Neck: supple, no JVD, other (Tracheostomy and trach tube is capped.) Effort: normal Ascultation: Bilateral: diminished breath sounds, rhonchi (scant) Percussion: Bilateral: not dull Cardiovascular: regular rate and rhythm Gastrointestinal: normoactive bowel sounds, soft, non-tender, non-distended Integumentary: normal Extremities: no cyanosis, no edema, pink and warm, pulses normal, no ischemia or petechiae Neurologic: normal mental status, non-focal exam, pupils equal and round, CN II- XII normal Psychiatric: mood appropriate, affect normal CBC and BMP: 09/07/18 06:40 09/07/18 06:40 ABG, PT/INR, D-dimer: ABG POC ABG pH 7.417 (7.35-7.45) 09/01/18 11:52 POC ABG pCO2 50.7 (35-45) H 09/01/18 11:52 POC ABG pO2 53 (80-105) L 09/01/18 11:52 POC ABG HCO3 32.6 09/01/18 11:52 POC ABG Total CO2 34 09/01/18 11:52 POC ABG O2 Sat 87 09/01/18 11:52 Abnormal lab findings: Abnormal Labs 08/31/18 08/31/18 08/31/18 06:31 12:50 16:31 RBC Hgb Hct MCV MCH RDW POC ABG pCO2 POC ABG pO2 Chloride Carbon Dioxide Creatinine Glucose POC Glucose 129 H 144 H Hemoglobin A1c 6.9 H 08/31/18 08/31/18 09/01/18 17:10 22:17 01:54 RBC Hgb Hct MCV MCH RDW POC ABG pCO2 POC ABG pO2 Chloride Carbon Dioxide Creatinine Glucose POC Glucose 133 H 140 H 133 H Hemoglobin A1c 09/01/18 09/01/18 09/01/18 04:28 04:28 06:18 RBC 3.41 L Hgb 11.3 L Hct 34.7 L MCV 102 H MCH 33 H RDW 18.2 H POC ABG pCO2 POC ABG pO2 Chloride 94.8 L Carbon Dioxide 33 H Creatinine 0.5 L Glucose 130 H POC Glucose 130 H Hemoglobin A1c 09/01/18 09/01/18 09/01/18 11:52 14:24 16:37 RBC Hgb Hct MCV MCH RDW POC ABG pCO2 50.7 H POC ABG pO2 53 L Chloride Carbon Dioxide Creatinine Glucose POC Glucose 168 H 142 H Hemoglobin A1c 09/01/18 09/02/18 09/02/18 23:40 06:48 11:41 RBC Hgb Hct MCV MCH RDW POC ABG pCO2 POC ABG pO2 Chloride Carbon Dioxide Creatinine Glucose POC Glucose 129 H 135 H 144 H Hemoglobin A1c 09/02/18 09/03/18 09/03/18 17:29 00:11 05:56 RBC Hgb Hct MCV MCH RDW POC ABG pCO2 POC ABG pO2 Chloride Carbon Dioxide Creatinine Glucose POC Glucose 114 H 143 H 161 H Hemoglobin A1c 09/03/18 09/03/18 09/03/18 11:25 17:25 22:47 RBC Hgb Hct MCV MCH RDW POC ABG pCO2 POC ABG pO2 Chloride Carbon Dioxide Creatinine Glucose POC Glucose 125 H 125 H 112 H Hemoglobin A1c 09/04/18 09/04/18 09/04/18 11:02 17:43 22:23 RBC Hgb Hct MCV MCH RDW POC ABG pCO2 POC ABG pO2 Chloride Carbon Dioxide Creatinine Glucose POC Glucose 143 H 169 H 114 H Hemoglobin A1c 09/05/18 09/05/18 09/06/18 11:29 17:56 01:08 RBC Hgb Hct MCV MCH RDW POC ABG pCO2 POC ABG pO2 Chloride Carbon Dioxide Creatinine Glucose POC Glucose 130 H 137 H 108 H Hemoglobin A1c 09/07/18 09/07/18 09/07/18 06:40 06:40 22:22 RBC 3.41 L Hgb 11.2 L Hct 34.8 L MCV 102 H MCH 33 H RDW 18.9 H POC ABG pCO2 POC ABG pO2 Chloride Carbon Dioxide Creatinine 0.6 L Glucose 105 H POC Glucose 113 H Hemoglobin A1c 09/08/18 09/08/18 09/08/18 11:59 17:23 22:12 RBC Hgb Hct MCV MCH RDW POC ABG pCO2 POC ABG pO2 Chloride Carbon Dioxide Creatinine Glucose POC Glucose 141 H 127 H 111 H Hemoglobin A1c 09/09/18 09/09/18 09/09/18 12:23 17:14 23:01 RBC Hgb Hct MCV MCH RDW POC ABG pCO2 POC ABG pO2 Chloride Carbon Dioxide Creatinine Glucose POC Glucose 113 H 114 H 122 H Hemoglobin A1c 09/10/18 09/10/18 09/10/18 12:22 16:53 23:30 RBC Hgb Hct MCV MCH RDW POC ABG pCO2 POC ABG pO2 Chloride Carbon Dioxide Creatinine Glucose POC Glucose 146 H 118 H 140 H Hemoglobin A1c 09/11/18 06:21 RBC Hgb Hct MCV MCH RDW POC ABG pCO2 POC ABG pO2 Chloride Carbon Dioxide Creatinine Glucose POC Glucose 106 H Hemoglobin A1c Allied health notes reviewed: PT
[2018-09-11] MEDS: LANTUS SUB-Q SCH (22:00)
[2018-09-12] MEDS: HumaLOG SUB-Q SCH ×5 (00:05→16:40)
[2018-09-12] MEDS: XOPENEX IH SCH ×4 (02:03→14:37)
[2018-09-12] MEDS: TYLENOL FEEDTUBE PRN ×3 (06:50→22:25)
[2018-09-12] MEDS: PULMICORT IH SCH ×2 (08:46→09:28)
[2018-09-12] MEDS: BROVANA NEBU IH SCH ×2 (08:46→09:28)
[2018-09-12] MEDS: CORDARONE FEEDTUBE SCH (09:51)
[2018-09-12] MEDS: ELIQUIS FEEDTUBE SCH ×2 (09:51→22:25)
[2018-09-12] MEDS: PRAVACHOL FEEDTUBE SCH (09:51)
[2018-09-12] MEDS: PEPCID FEEDTUBE SCH ×2 (09:51→22:25)
--- NOTE | 2018-09-12 10:40 | Progress Note ---
Subjective Date of service: 09/12/18 Principal diagnosis: Acute on Chronic Hypoxemic Respiratory failure; AE-COPD; s/p trachesotomy Interval history: 73-year-old male who experienced two days of shortness of breath and palpitations prior to reporting to the his pulverizer operator. After evaluation by his pulverizer operator he was admitted to [facility]. He was found to have atrial fibrillation with RVR, which was refractory to Cardizem drip but improved with amiodarone drip. He developed an acute hypoxemic respiratory failure and was admitted to the ICU and intubated. Patient had a complicated course which included the need for trach/PEG. He developed sepsis and pneumonia which were treated with antibiotics. Osborne was inserted by urology due to obstructive uropathy and a urethral stricture and is to remain in place. He remains on trach with blow by O2. Patient is participating with therapy and making fair progress. Endurance and balance improving. +BM. Pain is controlled. PEG tube is ok. Eating PO. Vital signs are stable. GLU in good range, continue to cover with SSI and monitor We'll continue the Osborne and awaiting return call from urologist to see if they want to change any management at some point prior to discharge or if they still prefer for the patient to follow-up. Possible decannulation per pulm soon. No further issues from patient, nursing, or therapist. Discussed in team conference. All available medical records, therapy notes, vitals and labs were reviewed. Objective - Exam Narrative Exam: MUSCULOSKELETAL SPECIALTY EXAM Constitutional: Well developed, well nourished, appropriately groomed EENT: EOMI. Trach in place with PMV. Hearing intact to voice Respiratory: Clear to ascultation bilaterally, decreased at bases, no increased work of breathing, on NC. Cardiovascular Regular Rate/ Rhythm, no swelling edema or tenderness in all 4 extremities. All 4 extremities warm. GI : + bowel sounds, soft, NTTP, nondistended, PEG : Osborne INTEGUMENTARY: Normal in all 4 extremities, scars on LE Musuloskeletal: BUE and BLE normal without defect, crepitus, sublux, effusion, or TTP. BUE and BLE 4-/5, adequate ROM with normal tone. NEURO: CN 2-12 grossly intact. Sensation intact in all extremities. No tremor noted. POSTURE and GAIT: Posture good, gait slow with occ LOB, managing lines ok PSYCH: Alert, orientated x3, affect appears normal. Insight appears intact. - Constitutional Vitals: Vital Signs - 12hr 09/11/18 09/12/18 09/12/18 23:13 03:47 07:34 Temperature 36.9 C 36.9 C 37.1 C Pulse Rate 80 73 70 Pulse Rate [ Bilateral Throughout] Respiratory 18 18 18 Rate Respiratory Rate [Bilateral Throughout] Blood Pressure 126/75 121/68 Blood Pressure 121/68 [Left] O2 Sat by Pulse 93 95 93 Oximetry 09/12/18 09/12/18 09/12/18 09:29 09:31 09:51 Temperature Pulse Rate Pulse Rate [ 93 H 83 Bilateral Throughout] Respiratory Rate Respiratory 20 20 Rate [Bilateral Throughout] Blood Pressure Blood Pressure [Left] O2 Sat by Pulse 96 Oximetry - Allied health notes Allied health notes reviewed: nursing, PT, ST, OT, RT FIMS assessment as documented by PT/OT/ST: Grooming Patient cleans teeth/dentures: Yes: gums Patient heck/brushes hair: Yes Patient washes, rinses and Yes dries face: Patient washes, rinses and Yes dries hands: Patient shaves: No Patient performs (no make-up/ / (100%) shaving): Grooming FIM Score 5. Supervision (Maceo applies toothpaste or opens containers.) Toileting Toileting Device Commode over Toilet Patient able to: Adjust clothes before,Clean self,Adjust clothes after Patient able to perform: 3/3 (100%) Toileting FIM Score 4. Minimal Assistance (Patient = 75% or more. Needs touching.) Social interaction/Memory/Problem solving Social Interaction FIM Score 7. Complete [place] (Interacts appropriately. Controls temper.) Memory FIM Score 7. Complete [place] (Remembers people and routines.) Problem Solving FIM Score 7. Complete [place] (Solves complex problems. Self corrects.) Transfers Mode of Locomotion: Wheelchair Bed/Chair/Wheelchair Transfers 6. Modified [place] (Uses device, sliding FIM Score board, prosth./orth.) Toilet Transfers FIM Score 3. Moderate Assistance (Patient = 50% or more. Some lifting.) Shower Transfers FIM Score 4. Minimal Assistance (Patient = 75% or more. Needs touching.) Locomotion- Stairs Device used on Stairs Handrail/s Number of Stairs Ascended/ 20 Descended Patient used handrail/support: Yes Stairs FIM Score 5. Supervision (12-14 stairs w/ supv. 4-6 stairs independently.) Locomotion- walk/wheelchair Most Frequent Mode of Walking Locomotion: Ambulation Distance 725 Walking FIM Score 5. Supervision (Minimum 150 ft. supv./cues or 50 ft. independently.) Wheelchair Propulsion Distance 350 Wheelchair FIM Score 6. Modified [place] (Wheels a minimum of 150 ft.) Eating Eating FIM Score 5. Supervision/Set-Up (Needs help w/ containers, cutting meat, etc.) Dressing-Upper body Patient retrieves clothing No items: Patient applies/removes UE n/a prosthesis or orthosis: Upper Body Dressing FIM Score 5. Supv./Set-Up (Maceo sets out clothes or applies pros./orth.) Dressing-lower body Patient retrieves clothing No items: Patient applies/removes LE n/a prosthesis or orthosis: Lower Body Dressing FIM Score 4. Minimal Assistance (Patient = 75% or more. Needs touching.) - Labs CBC & Chem 7: 09/07/18 06:40 09/07/18 06:40 Labs: Laboratory Results - last 72 hr 09/09/18 09/09/18 09/09/18 12:23 17:14 23:01 POC Glucose 113 H 114 H 122 H 09/10/18 09/10/18 09/10/18 06:14 12:22 16:53 POC Glucose 92 146 H 118 H 09/10/18 09/11/18 09/11/18 23:30 06:21 11:20 POC Glucose 140 H 106 H 101 09/11/18 09/11/18 09/12/18 16:30 21:57 06:55 POC Glucose 124 H 121 H 98 - Imaging and cardiology Chest x-ray: pending Assessment and Plan Z73.6 ADL dysfunction: OT will work on improving ability to perform ADLs (including assistive devices) to increase independence and decrease caregiver burden and improve functional transfers and mobility training. R26.2 Difficulty walking: PT will work on gait training and proper use of assistive devices and advance as appropriate to use of stairs and outside ambulation on uneven surfaces. R26.81 Unsteadiness on feet: PT will work on improving static and dynamic sitting and standing balance as well as proper use of assistive devices to decrease risk of falls. R26.89 Abnormality of gait: PT will work to improve safety and efficiency of gait through neuromotor training and gait training along with instruction on proper use of assistive devices. M62.81 Muscle weakness: PT & OT will work on strengthening exercises to improve functional strength including mixture of closed and open kinetic chain exercises. R53.81 Debility: PT & OT will work on improving overall functional status to improve participation with ADLs, mobility and social involvement. R53.83 Fatigue: PT & OT will work on improving endurance through aerobic exercises and therapeutic activity while monitoring patients tolerance for activity and vital signs as needed. I10 Hypertension: Cont to monitor, not on anti hypertensives E78.5 Hyperlipidemia: cont statin I48.91 AFib: Continue amiodarone, monitor R13.13 Dysphagia: Continue MANAGER CARDIAC and advance as able. FEES or MBSS as needed. Tolerating PO diet (mech soft/ground/nectar) CXR to follow up with atelectasis for resolution. Respiratory failure, COPD DVT ppx: on Eliquis Pain: Continue physical modalities in therapy and pain medications as needed to achieve functional pain control. Sleep: Monitor and address as needed. Bowel: Monitor and address as needed. Appetite: Monitor and address as needed when appropriate. Discharge planning: Pending therapy progress and care plan meeting. Bradley lomasinue discussion with therapy team, SW, patient and family. Restrictions/ Precautions: Falls, aspiration WB status: FWB Functional Hx: ADLs: Independent and working Cognition: Independent Mobility: independent Consults: Pulmonology for Pulm/Trach management Appreciate assistance Barriers to Discharge: Decreased mobility and ability to perform self care, weakness, balance deficits Estimated Length of Stay: 14-21 days Discharge Destination: Home with family
--- NOTE | 2018-09-12 12:47 | XRay Report ---
CHEST 2 VIEWS INDICATION: Followup for resolution, diminished bases. COMPARISON: 09/01/2018 FINDINGS: Frontal and lateral chest radiographs demonstrate improved left lung base opacity/aeration with left hemidiaphragm better delineated. Subtle left lower lung haziness may though remain with slight residual left lateral costophrenic angle blunting/fluid. Right hemidiaphragm approximately 3 cm higher than the left. Normal cardiomediastinal silhouette. Stable tracheostomy tube and probable chronic right apical opacity/pleural thickening with right apical cavitation described on 03/25/2015 chest CTA report. Intact bones with mild spinal degenerative spurring. CONCLUSION: Improving left basilar aeration/opacity with various other incidental findings, as above. Please correlate. Thank you for the opportunity to participate in this patient's care.
--- NOTE | 2018-09-12 14:03 | Progress Note ---
Assessment and Plan Patient alert, awake.Resting in bed. Says feeling better and breathing better. No complaint of chest pain or shortness of breath at rest. Trach tube is capped. On 2 litres O2, O2 saturation 93%. Planning to decanulate tomorrow. - Patient Problems (1) Acute respiratory failure Current Visit: No Status: Acute Qualifiers: Respiratory failure complication: hypoxia Qualified Code(s): J96.01 - Acute respiratory failure with hypoxia Plan to address problem: CAP trach tube as tolerated. O2 2 litres via nasal canula. Brovanna/Budesonide aerosol treatments q 12 hours. Xopenx aerosol treatments q 8 hours prn for shortness of breath. Patient is on Apixaban. Continue famotidine. (2) ARF (acute renal failure) with tubular necrosis Current Visit: No Status: Acute Plan to address problem: Management as per nephrology. (3) Atrial fibrillation with RVR Current Visit: No Status: Acute Plan to address problem: Management as per cardiology. Patient is on Apixaban. (4) CHF (congestive heart failure) Current Visit: No Status: Acute Qualifiers: Heart failure type: systolic Heart failure chronicity: acute Qualified Code(s): I50.21 - Acute systolic (congestive) heart failure Plan to address problem: Mangemet as per cardiology. (5) COPD exacerbation Current Visit: No Status: Acute Plan to address problem: AP trach tube as tolerated. O2 2 litres via nasal canula. Brovanna/Budesonide aerosol treatments q 12 hours. Xopenx aerosol treatments q 8 hours prn for shortness of breath. Patient is on Apixaban. Continue famotidine Subjective Date of service: 09/12/18 Principal diagnosis: Acute on Chronic Hypoxemic Respiratory failure; AE-COPD; s /p trachesotomy Interval history: Patient alert, awake.Resting in bed. Says feeling better and breathing better. No complaint of chest pain or shortness of breath at rest. Trach tube is capped. On 2 litres O2, O2 saturation 93%. Planning to decanulate tomorrow. Objective Vital Signs - 12hr 09/12/18 09/12/18 09/12/18 03:47 07:34 09:29 Temperature 98.4 F 98.7 F Pulse Rate 73 70 Pulse Rate [ 93 H Bilateral Throughout] Respiratory 18 18 Rate Respiratory 20 Rate [Bilateral Throughout] Blood Pressure 121/68 Blood Pressure 121/68 [Left] O2 Sat by Pulse 95 93 Oximetry 09/12/18 09/12/18 09:31 09:51 Temperature Pulse Rate Pulse Rate [ 83 Bilateral Throughout] Respiratory Rate Respiratory 20 Rate [Bilateral Throughout] Blood Pressure Blood Pressure [Left] O2 Sat by Pulse 96 Oximetry Constitutional: no acute distress, alert Eyes: non-icteric ENT: oropharynx moist Neck: supple, no JVD, other (Tracheostomy and trach tube is capped.) Effort: normal Ascultation: Bilateral: diminished breath sounds, rhonchi (scant) Percussion: Bilateral: not dull Cardiovascular: regular rate and rhythm Gastrointestinal: normoactive bowel sounds, soft, non-tender, non-distended Integumentary: normal Extremities: no cyanosis, no edema, pink and warm, pulses normal, no ischemia or petechiae Neurologic: normal mental status, non-focal exam, pupils equal and round, CN II- XII normal Psychiatric: mood appropriate, affect normal CBC and BMP: 09/07/18 06:40 09/07/18 06:40 ABG, PT/INR, D-dimer: ABG POC ABG pH 7.417 (7.35-7.45) 09/01/18 11:52 POC ABG pCO2 50.7 (35-45) H 09/01/18 11:52 POC ABG pO2 53 (80-105) L 09/01/18 11:52 POC ABG HCO3 32.6 09/01/18 11:52 POC ABG Total CO2 34 09/01/18 11:52 POC ABG O2 Sat 87 09/01/18 11:52 Abnormal lab findings: Abnormal Labs 08/31/18 08/31/18 08/31/18 06:31 12:50 16:31 RBC Hgb Hct MCV MCH RDW POC ABG pCO2 POC ABG pO2 Chloride Carbon Dioxide Creatinine Glucose POC Glucose 129 H 144 H Hemoglobin A1c 6.9 H 08/31/18 08/31/18 09/01/18 17:10 22:17 01:54 RBC Hgb Hct MCV MCH RDW POC ABG pCO2 POC ABG pO2 Chloride Carbon Dioxide Creatinine Glucose POC Glucose 133 H 140 H 133 H Hemoglobin A1c 09/01/18 09/01/18 09/01/18 04:28 04:28 06:18 RBC 3.41 L Hgb 11.3 L Hct 34.7 L MCV 102 H MCH 33 H RDW 18.2 H POC ABG pCO2 POC ABG pO2 Chloride 94.8 L Carbon Dioxide 33 H Creatinine 0.5 L Glucose 130 H POC Glucose 130 H Hemoglobin A1c 09/01/18 09/01/18 09/01/18 11:52 14:24 16:37 RBC Hgb Hct MCV MCH RDW POC ABG pCO2 50.7 H POC ABG pO2 53 L Chloride Carbon Dioxide Creatinine Glucose POC Glucose 168 H 142 H Hemoglobin A1c 09/01/18 09/02/18 09/02/18 23:40 06:48 11:41 RBC Hgb Hct MCV MCH RDW POC ABG pCO2 POC ABG pO2 Chloride Carbon Dioxide Creatinine Glucose POC Glucose 129 H 135 H 144 H Hemoglobin A1c 09/02/18 09/03/18 09/03/18 17:29 00:11 05:56 RBC Hgb Hct MCV MCH RDW POC ABG pCO2 POC ABG pO2 Chloride Carbon Dioxide Creatinine Glucose POC Glucose 114 H 143 H 161 H Hemoglobin A1c 09/03/18 09/03/18 09/03/18 11:25 17:25 22:47 RBC Hgb Hct MCV MCH RDW POC ABG pCO2 POC ABG pO2 Chloride Carbon Dioxide Creatinine Glucose POC Glucose 125 H 125 H 112 H Hemoglobin A1c 09/04/18 09/04/18 09/04/18 11:02 17:43 22:23 RBC Hgb Hct MCV MCH RDW POC ABG pCO2 POC ABG pO2 Chloride Carbon Dioxide Creatinine Glucose POC Glucose 143 H 169 H 114 H Hemoglobin A1c 09/05/18 09/05/18 09/06/18 11:29 17:56 01:08 RBC Hgb Hct MCV MCH RDW POC ABG pCO2 POC ABG pO2 Chloride Carbon Dioxide Creatinine Glucose POC Glucose 130 H 137 H 108 H Hemoglobin A1c 09/07/18 09/07/18 09/07/18 06:40 06:40 22:22 RBC 3.41 L Hgb 11.2 L Hct 34.8 L MCV 102 H MCH 33 H RDW 18.9 H POC ABG pCO2 POC ABG pO2 Chloride Carbon Dioxide Creatinine 0.6 L Glucose 105 H POC Glucose 113 H Hemoglobin A1c 09/08/18 09/08/18 09/08/18 11:59 17:23 22:12 RBC Hgb Hct MCV MCH RDW POC ABG pCO2 POC ABG pO2 Chloride Carbon Dioxide Creatinine Glucose POC Glucose 141 H 127 H 111 H Hemoglobin A1c 09/09/18 09/09/18 09/09/18 12:23 17:14 23:01 RBC Hgb Hct MCV MCH RDW POC ABG pCO2 POC ABG pO2 Chloride Carbon Dioxide Creatinine Glucose POC Glucose 113 H 114 H 122 H Hemoglobin A1c 09/10/18 09/10/18 09/10/18 12:22 16:53 23:30 RBC Hgb Hct MCV MCH RDW POC ABG pCO2 POC ABG pO2 Chloride Carbon Dioxide Creatinine Glucose POC Glucose 146 H 118 H 140 H Hemoglobin A1c 09/11/18 09/11/18 09/11/18 06:21 16:30 21:57 RBC Hgb Hct MCV MCH RDW POC ABG pCO2 POC ABG pO2 Chloride Carbon Dioxide Creatinine Glucose POC Glucose 106 H 124 H 121 H Hemoglobin A1c Chest x-ray: report reviewed, image reviewed (Improving left basilar infiltrate.) Allied health notes reviewed: PT
--- NOTE | 2018-09-12 17:51 | Event Note ---
Date: 09/12/18 I have asked RT to decannulate him in the morning
[2018-09-12] MEDS: VITAMIN B-12 FEEDTUBE SCH (22:25)
[2018-09-12] MEDS: LANTUS SUB-Q SCH (23:00)
[2018-09-13] MEDS: BROVANA NEBU IH SCH ×3 (03:27→20:24)
[2018-09-13] MEDS: PULMICORT IH SCH ×3 (03:27→20:24)
[2018-09-13] MEDS: XOPENEX IH SCH ×4 (03:29→15:05)
[2018-09-13] MEDS: TYLENOL FEEDTUBE PRN ×3 (07:25→21:50)
[2018-09-13] MEDS: PRAVACHOL FEEDTUBE SCH ×2 (08:00→16:54)
[2018-09-13] MEDS: PEPCID FEEDTUBE SCH ×2 (08:00→21:50)
[2018-09-13] MEDS: ELIQUIS FEEDTUBE SCH ×3 (08:00→21:50)
[2018-09-13] MEDS: CORDARONE FEEDTUBE SCH ×2 (08:01→16:53)
[2018-09-13] MEDS: VITAMIN B-12 FEEDTUBE SCH (08:01)
[2018-09-13] MEDS: HumaLOG SUB-Q SCH ×3 (08:07→18:08)
--- NOTE | 2018-09-13 12:07 | Consultation ---
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 After evaluation by his dot etcher apprentice he was admitted to [facility]. He was found to have atrial fibrillation with RVR, which was refractory to Cardizem drip but improved with amiodarone drip. He developed an acute hypoxemic respiratory failure and was admitted to the ICU and intubated. Patient had a complicated course which included the need for trach/PEG. He developed sepsis and pneumonia which were treated with antibiotics. Zuniga was inserted by by ks 08-05-18 due to obstructive uropathy and a urethral stricture. He remains on trach with blow by O2. After he was stabilized he was transferred for further rehab on 08/30/2018. discussed with Dr. Stout up in chair abd soft paraphimosis reduced removed zuniga (noon) A/P BPH Stricture phimosis dc zuniga done may need circ in future obs Past History Past Medical History: cancer, COPD, hypertension, PVD Past Surgical History: Other (PV bypass and stents) Social history: , lives with family, other (Former EtOH and Tobacco, denies illicits. Independent, working, driving.) Family history: cancer, diabetes, stroke Medications and Allergies Allergies Allergy/AdvReac Type Severity Reaction Status Date / Time No Known Allergies Allergy Verified 12/12/13 06:46 Home Medications Medication Instructions Recorded Confirmed Last Taken Type Pravastatin Sodium 40 mg PO DAILY 12/12/13 07/27/18 07/27/18 History Fluticasone/Salmeterol [Advair 1 puff IH BID 12/31/15 07/27/18 07/27/18 History Diskus 250-50 mcg] ALBUTEROL Inhaler (OR & NICU) 2 puff IH QID PRN 07/27/18 07/27/18 Unknown History [ProAir HFA Inhaler] Aspirin [Aspirin BABY CHEW TAB] 81 mg PO DAILY 07/27/18 07/27/18 07/27/18 History Cyanocobalamin (Vitamin B-12) 2,500 mcg PO DAILY 07/27/18 07/27/18 07/27/18 History [Vitamin B12] [place]-3S/Dha/Epa/Fish Oil/D3 [Fish 1 each PO DAILY 07/27/18 07/27/18 07/27/18 History Oqa-Rzjxm-6-Vit D Softgel] Amiodarone [Cordarone 200 MG TAB] 200 mg PO BID tablet 08/30/18 Unknown Rx Apixaban [Eliquis] 5 mg PO Q12HR tablet 08/30/18 Unknown Rx Arformoterol Nebu [Brovana Nebu] 15 mcg IH Q12HRT ml 08/30/18 Unknown Rx Budesonide [Pulmicort Respules] 0.5 mg IH Q12HRT nebu 08/30/18 Unknown Rx Cyanocobalamin [Vitamin B-12] 2,500 mcg PO QDAY tablet 08/30/18 Unknown Rx Famotidine [Pepcid] 20 mg PO BID tablet 08/30/18 Unknown Rx Insulin Glargine [Lantus VIAL] 20 units SUB-Q QHS units 08/30/18 Unknown Rx Lipase/Protease/Amylase [Pancreaze 1 each FEEDTUBE PRN PRN capsule 08/30/18 Unknown Rx 10,500 Unit] Lispro Insulin [Humalog] 0 unit SUB-Q Q8HR units 08/30/18 Unknown Rx Min Oil/Petrolatum [Artificial 1 applic OU Q4HR PRN tube 08/30/18 Unknown Rx Tears Ophth Oint] Petrolatum,White [Vaseline Lip 1 applic TP Q2HR PRN tube 08/30/18 Unknown Rx Therapy] Quetiapine Fumarate [Seroquel] 100 mg PO HS #30 tablet 08/30/18 Unknown Rx Active Meds: Active Medications Acetaminophen (Tylenol) 650 mg FEEDTUBE Q6H PRN PRN Reason: Pain, Mild (1-3) Last Admin: 09/13/18 07:25 Dose: 650 mg Documented by: Amiodarone HCl (Cordarone) 200 mg FEEDTUBE DAILY IGNCAIO Last Admin: 09/13/18 08:01 Dose: 200 mg Documented by: Lipase/Protease/Amylase (Pancreaze 10,500 Unit) 1 each FEEDTUBE PRN PRN PRN Reason: For Clogged Feeding Tube Apixaban (Eliquis) 5 mg FEEDTUBE Q12HR IGNACIO; Protocol Last Admin: 09/13/18 08:00 Dose: 5 mg Documented by: Arformoterol Tartrate (Brovana Nebu) 15 mcg IH Q12HRT [facility] Last Admin: 09/13/18 10:44 Dose: 15 mcg Documented by: Budesonide (Pulmicort) 0.5 mg IH Q12HRT [facility] Last Admin: 09/13/18 10:44 Dose: 0.5 mg Documented by: Cyanocobalamin (Vitamin B-12) 2,000 mcg FEEDTUBE QDAY [facility] Last Admin: 09/13/18 08:01 Dose: 2,000 mcg Documented by: Dextrose (D50w (25gm) Syringe) 50 ml IV PRN PRN PRN Reason: Hypoglycemia Famotidine (Pepcid) 20 mg FEEDTUBE BID [facility] Last Admin: 09/13/18 08:00 Dose: 20 mg Documented by: Hydrophilic Ointment (Vaseline Lip Therapy) 1 applic TP Q2HR PRN PRN Reason: Dry Lips Insulin Glargine (Lantus) 20 units SUB-Q QHS [facility] Last Admin: 09/12/18 23:00 Dose: Not Given Documented by: Insulin Human Lispro (Humalog) 0 unit SUB-Q Q6HR [facility]; Protocol Last Admin: 09/13/18 08:07 Dose: Not Given Documented by: Levalbuterol HCl (Xopenex) 0.63 mg IH Q6HRT [facility] Last Admin: 09/13/18 10:44 Dose: 0.63 mg Documented by: Multi-Ingred Cream/Lotion/Oil/Oint (Artificial Tears Ophth Oint) 1 applic OU Q4HR PRN PRN Reason: Dry Eye(s) Pravastatin Sodium (Pravachol) 40 mg FEEDTUBE DAILY [facility] Last Admin: 09/13/18 08:00 Dose: 40 mg Documented by: Quetiapine Fumarate (Seroquel) 100 mg FEEDTUBE HS [facility] Last Admin: 09/12/18 22:25 Dose: 100 mg Documented by: Simple Syrup (Simple Syrup) 15 ml FEEDTUBE PRN PRN PRN Reason: Hypoglycemia Simple Syrup (Simple Syrup) 30 ml FEEDTUBE PRN PRN PRN Reason: Hypoglycemia Sodium Bicarbonate (Sodium Bicarbonate) 325 mg FEEDTUBE PRN PRN PRN Reason: For Clogged Feeding Tube Exam - Constitutional Vitals: Temp Pulse Resp BP Pulse Ox 98.0 F 90 22 111/64 95 09/13/18 11:31 09/13/18 11:31 09/13/18 11:31 09/13/18 11:31 09/13/18 11:31 Results - Labs CBC & Chem 7: 09/07/18 06:40 09/07/18 06:40 Labs: Abnormal lab results 09/12/18 09/12/18 Range/Units 12:53 16:38 POC Glucose 108 H 114 H (70-105)
--- NOTE | 2018-09-13 14:04 | Progress Note ---
Assessment and Plan Patient alert, awake. Patient is De canulated this morning.Tolerating de canulation good. Patient is on 2 litres O2.O2 saturation 95%. Patient sitting up in chair.No acute respiratory distress. - Patient Problems (1) Acute respiratory failure Current Visit: No Status: Acute Qualifiers: Respiratory failure complication: hypoxia Qualified Code(s): J96.01 - Acute respiratory failure with hypoxia Plan to address problem: Patient de canulated. O2 2 litres via nasal canula. Brovanna/Budesonide aerosol treatments q 12 hours. Xopenx aerosol treatments q 8 hours prn for shortness of breath. Patient is on Apixaban. Continue famotidine. (2) ARF (acute renal failure) with tubular necrosis Current Visit: No Status: Acute Plan to address problem: Management as per nephrology. (3) Atrial fibrillation with RVR Current Visit: No Status: Acute Plan to address problem: Management as per cardiology. Patient is on Apixaban. (4) CHF (congestive heart failure) Current Visit: No Status: Acute Qualifiers: Heart failure type: systolic Heart failure chronicity: acute Qualified Code(s): I50.21 - Acute systolic (congestive) heart failure Plan to address problem: Mangemet as per cardiology. (5) COPD exacerbation Current Visit: No Status: Acute Plan to address problem: Patient decanulated. O2 2 litres via nasal canula. Brovanna/Budesonide aerosol treatments q 12 hours. Xopenx aerosol treatments q 8 hours prn for shortness of breath. Patient is on Apixaban. Continue famotidine Subjective Date of service: 09/13/18 Principal diagnosis: Acute on Chronic Hypoxemic Respiratory failure; AE-COPD; s/p trachesotomy Interval history: Patient alert, awake. Patient is De canulated this morning.Tolerating de canulation good. Patient is on 2 litres O2.O2 saturation 95%. Patient sitting up in chair.No acute respiratory distress. Objective Vital Signs - 12hr 09/13/18 09/13/18 09/13/18 02:00 06:45 07:24 Temperature 98.2 F 98.2 F Pulse Rate 80 Pulse Rate [ 84 Bilateral Throughout] Pulse Rate [ Throughout] Respiratory 24 Rate Respiratory 20 Rate [Bilateral Throughout] Blood Pressure 137/67 O2 Sat by Pulse 92 Oximetry 09/13/18 09/13/18 10:45 11:31 Temperature 98.0 F Pulse Rate 90 Pulse Rate [ 78 Bilateral Throughout] Pulse Rate [ 75 Throughout] Respiratory 22 Rate Respiratory 18 Rate [Bilateral Throughout] Blood Pressure 111/64 O2 Sat by Pulse 95 Oximetry Constitutional: no acute distress, alert Eyes: non-icteric ENT: oropharynx moist Neck: supple, no JVD, other (Tracheostomy and trach tube is capped.) Effort: normal Ascultation: Bilateral: diminished breath sounds, rhonchi (scant) Percussion: Bilateral: not dull Cardiovascular: regular rate and rhythm Gastrointestinal: normoactive bowel sounds, soft, non-tender, non-distended Integumentary: normal Extremities: no cyanosis, no edema, pink and warm, pulses normal, no ischemia or petechiae Neurologic: normal mental status, non-focal exam, pupils equal and round, CN II- XII normal Psychiatric: mood appropriate, affect normal CBC and BMP: 09/07/18 06:40 09/07/18 06:40 ABG, PT/INR, D-dimer: ABG POC ABG pH 7.417 (7.35-7.45) 09/01/18 11:52 POC ABG pCO2 50.7 (35-45) H 09/01/18 11:52 POC ABG pO2 53 (80-105) L 09/01/18 11:52 POC ABG HCO3 32.6 09/01/18 11:52 POC ABG Total CO2 34 09/01/18 11:52 POC ABG O2 Sat 87 09/01/18 11:52 Abnormal lab findings: Abnormal Labs 08/31/18 08/31/18 08/31/18 06:31 12:50 16:31 RBC Hgb Hct MCV MCH RDW POC ABG pCO2 POC ABG pO2 Chloride Carbon Dioxide Creatinine Glucose POC Glucose 129 H 144 H Hemoglobin A1c 6.9 H 08/31/18 08/31/18 09/01/18 17:10 22:17 01:54 RBC Hgb Hct MCV MCH RDW POC ABG pCO2 POC ABG pO2 Chloride Carbon Dioxide Creatinine Glucose POC Glucose 133 H 140 H 133 H Hemoglobin A1c 09/01/18 09/01/18 09/01/18 04:28 04:28 06:18 RBC 3.41 L Hgb 11.3 L Hct 34.7 L MCV 102 H MCH 33 H RDW 18.2 H POC ABG pCO2 POC ABG pO2 Chloride 94.8 L Carbon Dioxide 33 H Creatinine 0.5 L Glucose 130 H POC Glucose 130 H Hemoglobin A1c 09/01/18 09/01/18 09/01/18 11:52 14:24 16:37 RBC Hgb Hct MCV MCH RDW POC ABG pCO2 50.7 H POC ABG pO2 53 L Chloride Carbon Dioxide Creatinine Glucose POC Glucose 168 H 142 H Hemoglobin A1c 09/01/18 09/02/18 09/02/18 23:40 06:48 11:41 RBC Hgb Hct MCV MCH RDW POC ABG pCO2 POC ABG pO2 Chloride Carbon Dioxide Creatinine Glucose POC Glucose 129 H 135 H 144 H Hemoglobin A1c 09/02/18 09/03/18 09/03/18 17:29 00:11 05:56 RBC Hgb Hct MCV MCH RDW POC ABG pCO2 POC ABG pO2 Chloride Carbon Dioxide Creatinine Glucose POC Glucose 114 H 143 H 161 H Hemoglobin A1c 09/03/18 09/03/18 09/03/18 11:25 17:25 22:47 RBC Hgb Hct MCV MCH RDW POC ABG pCO2 POC ABG pO2 Chloride Carbon Dioxide Creatinine Glucose POC Glucose 125 H 125 H 112 H Hemoglobin A1c 09/04/18 09/04/18 09/04/18 11:02 17:43 22:23 RBC Hgb Hct MCV MCH RDW POC ABG pCO2 POC ABG pO2 Chloride Carbon Dioxide Creatinine Glucose POC Glucose 143 H 169 H 114 H Hemoglobin A1c 09/05/18 09/05/18 09/06/18 11:29 17:56 01:08 RBC Hgb Hct MCV MCH RDW POC ABG pCO2 POC ABG pO2 Chloride Carbon Dioxide Creatinine Glucose POC Glucose 130 H 137 H 108 H Hemoglobin A1c 09/07/18 09/07/18 09/07/18 06:40 06:40 22:22 RBC 3.41 L Hgb 11.2 L Hct 34.8 L MCV 102 H MCH 33 H RDW 18.9 H POC ABG pCO2 POC ABG pO2 Chloride Carbon Dioxide Creatinine 0.6 L Glucose 105 H POC Glucose 113 H Hemoglobin A1c 09/08/18 09/08/18 09/08/18 11:59 17:23 22:12 RBC Hgb Hct MCV MCH RDW POC ABG pCO2 POC ABG pO2 Chloride Carbon Dioxide Creatinine Glucose POC Glucose 141 H 127 H 111 H Hemoglobin A1c 09/09/18 09/09/18 09/09/18 12:23 17:14 23:01 RBC Hgb Hct MCV MCH RDW POC ABG pCO2 POC ABG pO2 Chloride Carbon Dioxide Creatinine Glucose POC Glucose 113 H 114 H 122 H Hemoglobin A1c 09/10/18 09/10/18 09/10/18 12:22 16:53 23:30 RBC Hgb Hct MCV MCH RDW POC ABG pCO2 POC ABG pO2 Chloride Carbon Dioxide Creatinine Glucose POC Glucose 146 H 118 H 140 H Hemoglobin A1c 09/11/18 09/11/18 09/11/18 06:21 16:30 21:57 RBC Hgb Hct MCV MCH RDW POC ABG pCO2 POC ABG pO2 Chloride Carbon Dioxide Creatinine Glucose POC Glucose 106 H 124 H 121 H Hemoglobin A1c 09/12/18 09/12/18 09/13/18 12:53 16:38 12:27 RBC Hgb Hct MCV MCH RDW POC ABG pCO2 POC ABG pO2 Chloride Carbon Dioxide Creatinine Glucose POC Glucose 108 H 114 H 132 H Hemoglobin A1c Allied health notes reviewed: PT
[2018-09-14] MEDS: HumaLOG SUB-Q SCH ×4 (00:52→18:06)
[2018-09-14] MEDS: LANTUS SUB-Q SCH ×2 (00:53→22:10)
[2018-09-14] MEDS: XOPENEX IH SCH ×4 (00:57→20:53)
[2018-09-14] MEDS: TYLENOL FEEDTUBE PRN ×3 (08:02→21:59)
[2018-09-14] MEDS: ELIQUIS FEEDTUBE SCH ×3 (08:51→21:29)
[2018-09-14] MEDS: CORDARONE FEEDTUBE SCH ×2 (08:52→10:00)
[2018-09-14] MEDS: VITAMIN B-12 FEEDTUBE SCH (08:53)
[2018-09-14] MEDS: PEPCID FEEDTUBE SCH ×2 (08:53→21:29)
[2018-09-14] MEDS: PRAVACHOL FEEDTUBE SCH ×2 (08:53→10:00)
[2018-09-14] MEDS: BROVANA NEBU IH SCH ×2 (09:25→20:54)
[2018-09-14] MEDS: PULMICORT IH SCH ×2 (09:26→20:53)
--- NOTE | 2018-09-14 20:57 | Progress Note ---
Subjective Date of service: 09/14/18 Principal diagnosis: Acute on Chronic Hypoxemic Respiratory failure; AE-COPD; s/p trachesotomy Interval history: 73-year-old male who experienced two days of shortness of breath and palpitations prior to reporting to the his associate financial planner. After evaluation by his associate financial planner he was admitted to [facility]. He was found to have atrial fibrillation with RVR, which was refractory to Cardizem drip but improved with amiodarone drip. He developed an acute hypoxemic respiratory failure and was admitted to the ICU and intubated. Patient had a complicated course which included the need for trach/PEG. He developed sepsis and pneumonia which were treated with antibiotics. Zuniga was inserted by by [place] 08-05-18 due to obstructive uropathy and a urethral stricture. He remains on trach with blow by O2. After he was stabilized he was transferred for further rehab on 08/30/2018. unable to urinate - nurse reinserted zuniga up in chair at bedside abd soft A/P retention BPH Stricture phimosis --continue zuniga several days --start flomax 1qd Objective - Constitutional Vitals: Vital Signs - 12hr 09/14/18 09/14/18 09/14/18 09:20 09:25 09:35 Temperature Pulse Rate Pulse Rate [ 78 88 Bilateral Throughout] Respiratory Rate Respiratory 20 20 Rate [Bilateral Throughout] Blood Pressure O2 Sat by Pulse 96 Oximetry 09/14/18 09/14/18 09/14/18 15:30 15:48 16:44 Temperature 98.3 F Pulse Rate 62 Pulse Rate [ 90 88 Bilateral Throughout] Respiratory 22 Rate Respiratory 18 20 Rate [Bilateral Throughout] Blood Pressure 115/60 O2 Sat by Pulse 89 Oximetry - Labs CBC & Chem 7: 09/07/18 06:40 09/07/18 06:40 Labs: Abnormal lab results 09/13/18 09/14/18 Range/Units 22:25 18:45 POC Glucose 114 H 122 H (70-105) Medications & Allergies - Medications Allergies/Adverse Reactions: Allergies No Known Allergies Allergy (Verified 12/12/13 06:46) Home Medications: Home Medications Medication Instructions Recorded Confirmed Last Taken Type Pravastatin Sodium 40 mg PO DAILY 12/12/13 09/14/18 07/27/18 History Fluticasone/Salmeterol [Advair 1 puff IH BID 12/31/15 09/14/18 07/27/18 History Diskus 250-50 mcg] ALBUTEROL Inhaler (OR & NICU) 2 puff IH QID PRN 07/27/18 09/14/18 Unknown History [ProAir HFA Inhaler] Aspirin [Aspirin BABY CHEW TAB] 81 mg PO DAILY 07/27/18 09/14/18 07/27/18 History Cyanocobalamin (Vitamin B-12) 2,500 mcg PO DAILY 07/27/18 09/14/18 07/27/18 History [Vitamin B12] Sheldon-3S/Dha/Epa/Fish Oil/D3 [Fish 1 each PO DAILY 07/27/18 09/14/18 07/27/18 History Fhk-Ylomx-8-Vit D Softgel] Amiodarone [Cordarone 200 MG TAB] 200 mg PO BID tablet 08/30/18 09/14/18 Unknown Rx Apixaban [Eliquis] 5 mg PO Q12HR tablet 08/30/18 09/14/18 Unknown Rx Arformoterol Nebu [Brovana Nebu] 15 mcg IH Q12HRT ml 08/30/18 09/14/18 Unknown Rx Budesonide [Pulmicort Respules] 0.5 mg IH Q12HRT nebu 08/30/18 09/14/18 Unknown Rx Cyanocobalamin [Vitamin B-12] 2,500 mcg PO QDAY tablet 08/30/18 09/14/18 Unknown Rx Famotidine [Pepcid] 20 mg PO BID tablet 08/30/18 09/14/18 Unknown Rx Insulin Glargine [Lantus VIAL] 20 units SUB-Q QHS units 08/30/18 09/14/18 Unknown Rx Lipase/Protease/Amylase [Pancreaze 1 each FEEDTUBE PRN PRN capsule 08/30/18 09/14/[address] 10,500 Unit] Lispro Insulin [Humalog] 0 unit SUB-Q Q8HR units 08/30/18 09/14/18 Unknown Rx Min Oil/Petrolatum [Artificial 1 applic OU Q4HR PRN tube 08/30/18 09/14/18 Unknown Rx Tears Ophth Oint] Petrolatum,White [Vaseline Lip 1 applic TP Q2HR PRN tube 08/30/18 09/14/18 Unknown Rx Therapy] Quetiapine Fumarate [Seroquel] 100 mg PO HS #30 tablet 08/30/18 09/14/18 Unknown Rx Active Medications: Generic Name Dose Route Start Last Admin Trade Name Freq PRN Reason Stop Dose Admin Acetaminophen 650 mg 08/31/18 11:14 09/14/18 15:59 Tylenol FEEDTUBE 650 mg Q6H PRN Administration Pain, Mild (1-3) Amiodarone HCl 200 mg 09/07/18 10:00 09/14/18 10:00 Cordarone FEEDTUBE Not Given DAILY IGNACIO Lipase/Protease/Amylase 1 each 08/31/18 11:55 Pancreazchava Mccarthy 10,500 Unit FEEDTUBE PRN PRN For Clogged Feeding Tube Apixaban 5 mg 08/30/18 22:00 09/14/18 10:00 Eliquis FEEDTUBE Not Given Q12HR [facility] Protocol Arformoterol Tartrate 15 mcg 08/30/18 20:00 09/14/18 20:54 Brovana Nebu IH 15 mcg Q12HRT IGNACIO Administration Budesonide 0.5 mg 08/30/18 20:00 09/14/18 20:53 Pulmicort IH 0.5 mg Q12HRT IGNACIO Administration Cyanocobalamin 2,000 mcg 08/31/18 10:00 09/14/18 08:53 Vitamin B-12 FEEDTUBE 2,000 mcg QDAY IGNACIO Administration Dextrose 50 ml 08/30/18 16:23 D50w (25gm) Syringe IV PRN PRN Hypoglycemia Famotidine 20 mg 08/30/18 22:00 09/14/18 08:53 Pepcid FEEDTUBE 20 mg BID IGNACIO Administration Hydrophilic Ointment 1 applic 08/30/18 16:54 Vaseline Lip Therapy TP Q2HR PRN Dry Lips Insulin Glargine 20 units 08/30/18 22:00 09/14/18 00:53 Lantus SUB-Q Not Given QHS IGNACIO Insulin Human Lispro 0 unit 08/30/18 18:00 09/14/18 18:06 Humalog SUB-Q Not Given Q6HR [facility] Protocol Levalbuterol HCl 0.63 mg 09/14/18 00:00 09/14/18 20:53 Xopenex IH 0.63 mg Q8HRT IGNACIO Administration Multi-Ingred Cream/Lotion/Oil/Oint 1 applic 08/30/18 16:54 Artificial Tears Ophth Oint OU Q4HR PRN Dry Eye(s) Pravastatin Sodium 40 mg 08/31/18 10:00 09/14/18 10:00 Pravachol FEEDTUBE Not Given DAILY IGNACIO Quetiapine Fumarate 100 mg 08/30/18 22:00 09/13/18 21:50 Seroquel FEEDTUBE 100 mg HS IGNACIO Administration Simple Syrup 15 ml 08/31/18 11:55 Simple Syrup FEEDTUBE PRN PRN Hypoglycemia Simple Syrup 30 ml 08/31/18 11:55 Simple Syrup FEEDTUBE PRN PRN Hypoglycemia Sodium Bicarbonate 325 mg 08/31/18 11:55 Sodium Bicarbonate FEEDTUBE PRN PRN For Clogged Feeding Tube
--- NOTE | 2018-09-14 21:30 | Progress Note ---
Assessment and Plan Patient alert, awake. Patient is De canulated yesterday.Tolerating de canulation good. Patient is on 2 litres O2.O2 saturation 97%. No acute respiratory distress. - Patient Problems (1) Acute respiratory failure Current Visit: No Status: Acute Qualifiers: Respiratory failure complication: hypoxia Qualified Code(s): J96.01 - Acute respiratory failure with hypoxia Plan to address problem: Patient de canulated. O2 2 litres via nasal canula. Brovanna/Budesonide aerosol treatments q 12 hours. Xopenx aerosol treatments q 8 hours prn for shortness of breath. Patient is on Apixaban. Continue famotidine. (2) ARF (acute renal failure) with tubular necrosis Current Visit: No Status: Acute Plan to address problem: Management as per nephrology. (3) Atrial fibrillation with RVR Current Visit: No Status: Acute Plan to address problem: Management as per cardiology. Patient is on Apixaban. (4) CHF (congestive heart failure) Current Visit: No Status: Acute Qualifiers: Heart failure type: systolic Heart failure chronicity: acute Qualified C ode(s): I50.21 - Acute systolic (congestive) heart failure Plan to address problem: Mangemet as per cardiology. (5) COPD exacerbation Current Visit: No Status: Acute Plan to address problem: Patient decanulated. O2 2 litres via nasal canula. Brovanna/Budesonide aerosol treatments q 12 hours. Xopenx aerosol treatments q 8 hours prn for shortness of breath. Patient is on Apixaban. Continue famotidine Subjective Date of service: 09/14/18 Principal diagnosis: Acute on Chronic Hypoxemic Respiratory failure; AE-COPD; s/p trachesotomy Interval history: Patient alert, awake. Patient is De canulated yesterday.Tolerating de canulation good. Patient is on 2 litres O2.O2 saturation 97%. No acute respiratory distress. Objective Vital Signs - 12hr 09/14/18 09/14/18 09/14/18 09:35 15:30 15:48 Temperature Pulse Rate Pulse Rate [ 88 90 88 Bilateral Throughout] Respiratory Rate Respiratory 20 18 20 Rate [Bilateral Throughout] Blood Pressure O2 Sat by Pulse Oximetry 09/14/18 09/14/18 09/14/18 16:44 20:54 20:55 Temperature 98.3 F Pulse Rate 62 Pulse Rate [ 86 Bilateral Throughout] Respiratory 22 Rate Respiratory 20 Rate [Bilateral Throughout] Blood Pressure 115/60 O2 Sat by Pulse 89 97 Oximetry 09/14/18 20:57 Temperature Pulse Rate Pulse Rate [ 84 Bilateral Throughout] Respiratory Rate Respiratory 20 Rate [Bilateral Throughout] Blood Pressure O2 Sat by Pulse Oximetry Constitutional: no acute distress, alert Eyes: non-icteric ENT: oropharynx moist Neck: supple, no JVD, other (Tracheostomy and trach tube is capped.) Effort: normal Ascultation: Bilateral: diminished breath sounds, rhonchi (scant) Percussion: Bilateral: not dull Cardiovascular: regular rate and rhythm Gastrointestinal: normoactive bowel sounds, soft, non-tender, non-distended Integumentary: normal Extremities: no cyanosis, no edema, pink and warm, pulses normal, no ischemia or petechiae Neurologic: normal mental status, non-focal exam, pupils equal and round, CN II- XII normal Psychiatric: mood appropriate, affect normal CBC and BMP: 09/07/18 06:40 09/07/18 06:40 ABG, PT/INR, D-dimer: ABG POC ABG pH 7.417 (7.35-7.45) 09/01/18 11:52 POC ABG pCO2 50.7 (35-45) H 09/01/18 11:52 POC ABG pO2 53 (80-105) L 09/01/18 11:52 POC ABG HCO3 32.6 09/01/18 11:52 POC ABG Total CO2 34 09/01/18 11:52 POC ABG O2 Sat 87 09/01/18 11:52 Abnormal lab findings: Abnormal Labs 08/31/18 08/31/18 08/31/18 06:31 12:50 16:31 RBC Hgb Hct MCV MCH RDW POC ABG pCO2 POC ABG pO2 Chloride Carbon Dioxide Creatinine Glucose POC Glucose 129 H 144 H Hemoglobin A1c 6.9 H 08/31/18 08/31/18 09/01/18 17:10 22:17 01:54 RBC Hgb Hct MCV MCH RDW POC ABG pCO2 POC ABG pO2 Chloride Carbon Dioxide Creatinine Glucose POC Glucose 133 H 140 H 133 H Hemoglobin A1c 09/01/18 09/01/18 09/01/18 04:28 04:28 06:18 RBC 3.41 L Hgb 11.3 L Hct 34.7 L MCV 102 H MCH 33 H RDW 18.2 H POC ABG pCO2 POC ABG pO2 Chloride 94.8 L Carbon Dioxide 33 H Creatinine 0.5 L Glucose 130 H POC Glucose 130 H Hemoglobin A1c 09/01/18 09/01/18 09/01/18 11:52 14:24 16:37 RBC Hgb Hct MCV MCH RDW POC ABG pCO2 50.7 H POC ABG pO2 53 L Chloride Carbon Dioxide Creatinine Glucose POC Glucose 168 H 142 H Hemoglobin A1c 09/01/18 09/02/18 09/02/18 23:40 06:48 11:41 RBC Hgb Hct MCV MCH RDW POC ABG pCO2 POC ABG pO2 Chloride Carbon Dioxide Creatinine Glucose POC Glucose 129 H 135 H 144 H Hemoglobin A1c 09/02/18 09/03/18 09/03/18 17:29 00:11 05:56 RBC Hgb Hct MCV MCH RDW POC ABG pCO2 POC ABG pO2 Chloride Carbon Dioxide Creatinine Glucose POC Glucose 114 H 143 H 161 H Hemoglobin A1c 09/03/18 09/03/18 09/03/18 11:25 17:25 22:47 RBC Hgb Hct MCV MCH RDW POC ABG pCO2 POC ABG pO2 Chloride Carbon Dioxide Creatinine Glucose POC Glucose 125 H 125 H 112 H Hemoglobin A1c 09/04/18 09/04/18 09/04/18 11:02 17:43 22:23 RBC Hgb Hct MCV MCH RDW POC ABG pCO2 POC ABG pO2 Chloride Carbon Dioxide Creatinine Glucose POC Glucose 143 H 169 H 114 H Hemoglobin A1c 09/05/18 09/05/18 09/06/18 11:29 17:56 01:08 RBC Hgb Hct MCV MCH RDW POC ABG pCO2 POC ABG pO2 Chloride Carbon Dioxide Creatinine Glucose POC Glucose 130 H 137 H 108 H Hemoglobin A1c 09/07/18 09/07/18 09/07/18 06:40 06:40 22:22 RBC 3.41 L Hgb 11.2 L Hct 34.8 L MCV 102 H MCH 33 H RDW 18.9 H POC ABG pCO2 POC ABG pO2 Chloride Carbon Dioxide Creatinine 0.6 L Glucose 105 H POC Glucose 113 H Hemoglobin A1c 09/08/18 09/08/18 09/08/18 11:59 17:23 22:12 RBC Hgb Hct MCV MCH RDW POC ABG pCO2 POC ABG pO2 Chloride Carbon Dioxide Creatinine Glucose POC Glucose 141 H 127 H 111 H Hemoglobin A1c 09/09/18 09/09/18 09/09/18 12:23 17:14 23:01 RBC Hgb Hct MCV MCH RDW POC ABG pCO2 POC ABG pO2 Chloride Carbon Dioxide Creatinine Glucose POC Glucose 113 H 114 H 122 H Hemoglobin A1c 09/10/18 09/10/18 09/10/18 12:22 16:53 23:30 RBC Hgb Hct MCV MCH RDW POC ABG pCO2 POC ABG pO2 Chloride Carbon Dioxide Creatinine Glucose POC Glucose 146 H 118 H 140 H Hemoglobin A1c 09/11/18 09/11/18 09/11/18 06:21 16:30 21:57 RBC Hgb Hct MCV MCH RDW POC ABG pCO2 POC ABG pO2 Chloride Carbon Dioxide Creatinine Glucose POC Glucose 106 H 124 H 121 H Hemoglobin A1c 09/12/18 09/12/18 09/13/18 12:53 16:38 12:27 RBC Hgb Hct MCV MCH RDW POC ABG pCO2 POC ABG pO2 Chloride Carbon Dioxide Creatinine Glucose POC Glucose 108 H 114 H 132 H Hemoglobin A1c 09/13/18 09/13/18 09/14/18 16:24 22:25 18:45 RBC Hgb Hct MCV MCH RDW POC ABG pCO2 POC ABG pO2 Chloride Carbon Dioxide Creatinine Glucose POC Glucose 130 H 114 H 122 H Hemoglobin A1c Allied health notes reviewed: PT
[2018-09-15] MEDS: XOPENEX IH SCH ×3 (00:06→16:58)
[2018-09-15] MEDS: HumaLOG SUB-Q SCH ×5 (01:58→18:00)
[2018-09-15 05:25] LABS: BUN/Creatinine Ratio 17; Blood Urea Nitrogen 10 mg/dL (9-20); Calcium 9.2 mg/dL (8.4-10.2); Hemolysis Index 0
[2018-09-15 06:01] LABS: Basophils # (Auto) 0.1 K/mm3 (0.0-0.1); Eosinophils # (Auto) 0.3 K/mm3 (0.0-0.4); Eosinophils % (Auto) 5.6 % (0.0-4.3); Hematocrit 29.7 % (35.5-45.6); Hemoglobin 9.7 gm/dl (11.8-15.2); Lymphocytes # (Auto) 1.3 K/mm3 (1.2-5.4); Lymphocytes % (Auto) 22.9 % (13.4-35.0); Mean Corpuscular HGB Conc 33 % (32-34); Mean Corpuscular Volume 101 fl (84-94); Monocytes # (Auto) 0.5 K/mm3 (0.0-0.8); Monocytes % (Auto) 8.5 % (0.0-7.3); Platelet Count 293 K/mm3 (140-440); Red Blood Count 2.95 M/mm3 (3.65-5.03); Red Cell Distribution Width 18.2 % (13.2-15.2)
[2018-09-15 06:26] LABS: Basophils % (Auto) 1.3 % (0.0-1.8)
[2018-09-15] MEDS: PULMICORT IH SCH ×2 (08:48→20:52)
[2018-09-15] MEDS: BROVANA NEBU IH SCH ×2 (08:48→20:52)
[2018-09-15] MEDS ORDERED: XOPENEX IH ONE ×2 (09:00→16:57)
--- NOTE | 2018-09-15 09:08 | Progress Note ---
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 sq lantus -Afib/PVD -Dysphagia s/p PEG -Bronchodilators per protocol -Tracheal stomal care -Supplemental oxygen to keep O2 sats>99% -Continue PT/OT -Continue all current supportive care per Rehab team Subjective Date of service: 09/15/18 Principal diagnosis: Acute on Chronic Hypoxemic Respiratory failure; AE-COPD; s/p trachesotomy Interval history: Patient is seen today for: Chronic respiratory failure, s/p trachesotomy Seen and examined at bedside; 24hour events reviewed; nursing and respiratory care staff consulted; no adverse overnight events reported to me; Decanulated 48 hours ago Phonating well, not in any distress Objective Vital Signs - 12hr 09/14/18 09/14/18 09/14/18 21:27 21:28 22:18 Temperature 97.7 F Pulse Rate 74 75 Pulse Rate [ Bilateral Throughout] Respiratory 18 Rate Respiratory Rate [Bilateral Throughout] Blood Pressure 143/65 O2 Sat by Pulse 91 90 96 Oximetry 09/15/18 09/15/18 09/15/18 04:39 05:15 08:19 Temperature 98.1 F Pulse Rate 75 75 Pulse Rate [ Bilateral Throughout] Respiratory 18 18 Rate Respiratory Rate [Bilateral Throughout] Blood Pressure 118/66 108/66 O2 Sat by Pulse 83 L 92 92 Oximetry 09/15/18 08:53 Temperature Pulse Rate Pulse Rate [ 73 Bilateral Throughout] Respiratory Rate Respiratory 18 Rate [Bilateral Throughout] Blood Pressure O2 Sat by Pulse 94 Oximetry Constitutional: no acute distress, alert Eyes: non-icteric ENT: oropharynx moist Neck: supple, no JVD, other (Tracheostomy and trach tube is capped.) Effort: normal Ascultation: Bilateral: diminished breath sounds, rhonchi (scant) Percussion: Bilateral: not dull Cardiovascular: regular rate and rhythm Gastrointestinal: normoactive bowel sounds, soft, non-tender, non-distended Integumentary: normal Extremities: no cyanosis, no edema, pink and warm, pulses normal, no ischemia or petechiae Neurologic: normal mental status, non-focal exam, pupils equal and round, CN II- XII normal Psychiatric: mood appropriate, affect normal CBC and BMP: 09/15/18 04:50 09/15/18 04:50 ABG, PT/INR, D-dimer: ABG POC ABG pH 7.417 (7.35-7.45) 09/01/18 11:52 POC ABG pCO2 50.7 (35-45) H 09/01/18 11:52 POC ABG pO2 53 (80-105) L 09/01/18 11:52 POC ABG HCO3 32.6 09/01/18 11:52 POC ABG Total CO2 34 09/01/18 11:52 POC ABG O2 Sat 87 09/01/18 11:52 Abnormal lab findings: Abnormal Labs 08/31/18 08/31/18 08/31/18 06:31 12:50 16:31 RBC Hgb Hct MCV MCH RDW [place] % (Auto) Eos % (Auto) POC ABG pCO2 POC ABG pO2 Chloride Carbon Dioxide Creatinine Glucose POC Glucose 129 H 144 H Hemoglobin A1c 6.9 H 08/31/18 08/31/18 09/01/18 17:10 22:17 01:54 RBC Hgb Hct MCV MCH RDW [place] % (Auto) Eos % (Auto) POC ABG pCO2 POC ABG pO2 Chloride Carbon Dioxide Creatinine Glucose POC Glucose 133 H 140 H 133 H Hemoglobin A1c 09/01/18 09/01/18 09/01/18 04:28 04:28 06:18 RBC 3.41 L Hgb 11.3 L Hct 34.7 L MCV 102 H MCH 33 H RDW 18.2 H [place] % (Auto) Eos % (Auto) POC ABG pCO2 POC ABG pO2 Chloride 94.8 L Carbon Dioxide 33 H Creatinine 0.5 L Glucose 130 H POC Glucose 130 H Hemoglobin A1c 09/01/18 09/01/18 09/01/18 11:52 14:24 16:37 RBC Hgb Hct MCV MCH RDW [place] % (Auto) Eos % (Auto) POC ABG pCO2 50.7 H POC ABG pO2 53 L Chloride Carbon Dioxide Creatinine Glucose POC Glucose 168 H 142 H Hemoglobin A1c 09/01/18 09/02/18 09/02/18 23:40 06:48 11:41 RBC Hgb Hct MCV MCH RDW [place] % (Auto) Eos % (Auto) POC ABG pCO2 POC ABG pO2 Chloride Carbon Dioxide Creatinine Glucose POC Glucose 129 H 135 H 144 H Hemoglobin A1c 09/02/18 09/03/18 09/03/18 17:29 00:11 05:56 RBC Hgb Hct MCV MCH RDW [place] % (Auto) Eos % (Auto) POC ABG pCO2 POC ABG pO2 Chloride Carbon Dioxide Creatinine Glucose POC Glucose 114 H 143 H 161 H Hemoglobin A1c 09/03/18 09/03/18 09/03/18 11:25 17:25 22:47 RBC Hgb Hct MCV MCH RDW [place] % (Auto) Eos % (Auto) POC ABG pCO2 POC ABG pO2 Chloride Carbon Dioxide Creatinine Glucose POC Glucose 125 H 125 H 112 H Hemoglobin A1c 09/04/18 09/04/18 09/04/18 11:02 17:43 22:23 RBC Hgb Hct MCV MCH RDW [place] % (Auto) Eos % (Auto) POC ABG pCO2 POC ABG pO2 Chloride Carbon Dioxide Creatinine Glucose POC Glucose 143 H 169 H 114 H Hemoglobin A1c 09/05/18 09/05/18 09/06/18 11:29 17:56 01:08 RBC Hgb Hct MCV MCH RDW [place] % (Auto) Eos % (Auto) POC ABG pCO2 POC ABG pO2 Chloride Carbon Dioxide Creatinine Glucose POC Glucose 130 H 137 H 108 H Hemoglobin A1c 09/07/18 09/07/18 09/07/18 06:40 06:40 22:22 RBC 3.41 L Hgb 11.2 L Hct 34.8 L MCV 102 H MCH 33 H RDW 18.9 H [place] % (Auto) Eos % (Auto) POC ABG pCO2 POC ABG pO2 Chloride Carbon Dioxide Creatinine 0.6 L Glucose 105 H POC Glucose 113 H Hemoglobin A1c 09/08/18 09/08/18 09/08/18 11:59 17:23 22:12 RBC Hgb Hct MCV MCH RDW [place] % (Auto) Eos % (Auto) POC ABG pCO2 POC ABG pO2 Chloride Carbon Dioxide Creatinine Glucose POC Glucose 141 H 127 H 111 H Hemoglobin A1c 09/09/18 09/09/18 09/09/18 12:23 17:14 23:01 RBC Hgb Hct MCV MCH RDW [place] % (Auto) Eos % (Auto) POC ABG pCO2 POC ABG pO2 Chloride Carbon Dioxide Creatinine Glucose POC Glucose 113 H 114 H 122 H Hemoglobin A1c 09/10/18 09/10/18 09/10/18 12:22 16:53 23:30 RBC Hgb Hct MCV MCH RDW [place] % (Auto) Eos % (Auto) POC ABG pCO2 POC ABG pO2 Chloride Carbon Dioxide Creatinine Glucose POC Glucose 146 H 118 H 140 H Hemoglobin A1c 09/11/18 09/11/18 09/11/18 06:21 16:30 21:57 RBC Hgb Hct MCV MCH RDW [place] % (Auto) Eos % (Auto) POC ABG pCO2 POC ABG pO2 Chloride Carbon Dioxide Creatinine Glucose POC Glucose 106 H 124 H 121 H Hemoglobin A1c 09/12/18 09/12/18 09/13/18 12:53 16:38 12:27 RBC Hgb Hct MCV MCH RDW [place] % (Auto) Eos % (Auto) POC ABG pCO2 POC ABG pO2 Chloride Carbon Dioxide Creatinine Glucose POC Glucose 108 H 114 H 132 H Hemoglobin A1c 09/13/18 09/13/18 09/14/18 16:24 22:25 18:45 RBC Hgb Hct MCV MCH RDW [place] % (Auto) Eos % (Auto) POC ABG pCO2 POC ABG pO2 Chloride Carbon Dioxide Creatinine Glucose POC Glucose 130 H 114 H 122 H Hemoglobin A1c 09/14/18 09/15/18 09/15/18 21:52 04:50 04:50 RBC 2.95 L Hgb 9.7 L Hct 29.7 L MCV 101 H MCH 33 H RDW 18.2 H [place] % (Auto) 8.5 H Eos % (Auto) 5.6 H POC ABG pCO2 POC ABG pO2 Chloride Carbon Dioxide 31 H Creatinine 0.6 L Glucose 102 H POC Glucose 115 H Hemoglobin A1c Allied health notes reviewed: PT
[2018-09-15] MEDS: VITAMIN B-12 FEEDTUBE SCH (09:50)
[2018-09-15] MEDS: CORDARONE FEEDTUBE SCH (09:51)
[2018-09-15] MEDS: FLOMAX PO SCH (09:51)
[2018-09-15] MEDS: PEPCID FEEDTUBE SCH ×2 (09:51→22:40)
[2018-09-15] MEDS: ELIQUIS FEEDTUBE SCH ×2 (09:59→22:40)
[2018-09-15] MEDS: TYLENOL FEEDTUBE PRN ×2 (10:00→19:13)
[2018-09-15] MEDS: PRAVACHOL FEEDTUBE SCH (10:06)
--- NOTE | 2018-09-15 11:43 | Progress Note ---
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 After evaluation by his oil field equipment mechanic he was admitted to [facility]. He was found to have atrial fibrillation with RVR, which was refractory to Cardizem drip but improved with amiodarone drip. He developed an acute hypoxemic respiratory failure and was admitted to the ICU and intubated. Patient had a complicated course which included the need for trach/PEG. He developed sepsis and pneumonia which were treated with antibiotics. Osborne was inserted by urology due to obstructive uropathy and a urethral stricture and is to remain in place. He remains on trach with blow by O2. Patient is participating with therapy and making fair progress. Endurance and balance improving. +BM. Pain is controlled. PEG tube is ok. Eating PO. Vital signs are stable. GLU in good range, continue to cover with SSI and monitor Urology attempted bladder trial but had to reinsert due to no output. Flomax started and will re-attempt Wednesday. Decannulation, no issues. Seems to be swallowing easier per patient. CHIEF WELLNESS OFFICER looking to do MBS - ordered. Anemia worse since admission. MCV elevated. Vit B12 level ordered, along with iron panel and folate. No further issues from patient, nursing, or therapist. Look to d/c Wednesday 09/20 All available medical records, therapy notes, vitals and labs were reviewed. Objective - Exam Narrative Exam: MUSCULOSKELETAL SPECIALTY EXAM Constitutional: Well developed, well nourished, appropriately groomed EENT: EOMI. Trach stoma covered. Hearing intact to voice. Vocal quality improved Respiratory: Clear to ascultation bilaterally, decreased at bases, no increased work of breathing, on NC. Cardiovascular Regular Rate/ Rhythm, no swelling edema or tenderness in all 4 extremities. All 4 extremities warm. GI : + bowel sounds, soft, NTTP, nondistended, PEG : Osborne INTEGUMENTARY: Normal in all 4 extremities, scars on LE Musuloskeletal: BUE and BLE normal without defect, crepitus, sublux, effusion, or TTP. BUE and BLE 4-/5, adequate ROM with normal tone. NEURO: CN 2-12 grossly intact. Sensation intact in all extremities. No tremor noted. POSTURE and GAIT: Posture good, gait slow with occ LOB but improved, managing lines ok PSYCH: Alert, orientated x3, affect appears normal. Insight appears intact. - Constitutional Vitals: Vital Signs - 12hr 09/15/18 09/15/18 09/15/18 04:39 05:15 08:19 Temperature 36.7 C Pulse Rate 75 75 Pulse Rate [ Bilateral Throughout] Respiratory 18 18 Rate Respiratory Rate [Bilateral Throughout] Blood Pressure 118/66 108/66 O2 Sat by Pulse 83 L 92 92 Oximetry 09/15/18 09/15/18 08:53 09:09 Temperature Pulse Rate Pulse Rate [ 73 81 Bilateral Throughout] Respiratory Rate Respiratory 18 18 Rate [Bilateral Throughout] Blood Pressure O2 Sat by Pulse 94 Oximetry - Allied health notes Allied health notes reviewed: nursing, PT, ST, OT FIMS assessment as documented by PT/OT/ST: Grooming Patient cleans teeth/dentures: Yes: gums Patient heck/brushes hair: Yes Patient washes, rinses and Yes dries face: Patient washes, rinses and Yes dries hands: Patient shaves: No Patient performs (no make-up/ / (100%) shaving): Grooming FIM Score 5. Supervision ([place] applies toothpaste or opens containers.) Toileting Toileting Device Commode over Toilet Patient able to: Adjust clothes before,Clean self,Adjust clothes after Patient able to perform: 3/3 (100%) Toileting FIM Score 4. Minimal Assistance (Patient = 75% or more. Needs touching.) Social interaction/Memory/Problem solving Social Interaction FIM Score 7. Complete [place] (Interacts appropriately. Controls temper.) Memory FIM Score 7. Complete [place] (Remembers people and routines.) Problem Solving FIM Score 7. Complete [place] (Solves complex problems. Self corrects.) Transfers Mode of Locomotion: Wheelchair Bed/Chair/Wheelchair Transfers 6. Modified [place] (Uses device, sliding FIM Score board, prosth./orth.) Toilet Transfers FIM Score 3. Moderate Assistance (Patient = 50% or more. Some lifting.) Shower Transfers FIM Score 4. Minimal Assistance (Patient = 75% or more. Needs touching.) Locomotion- Stairs Device used on Stairs Handrail/s Number of Stairs Ascended/ 20 Descended Patient used handrail/support: Yes Stairs FIM Score 5. Supervision (12-14 stairs w/ supv. 4-6 stairs independently.) Locomotion- walk/wheelchair Most Frequent Mode of Walking Locomotion: Ambulation Distance 900 Walking FIM Score 5. Supervision (Minimum 150 ft. supv./cues or 50 ft. independently.) Wheelchair Propulsion Distance 350 Wheelchair FIM Score 6. Modified [place] (Wheels a minimum of 150 ft.) Eating Eating FIM Score 5. Supervision/Set-Up (Needs help w/ containers, cutting meat, etc.) Dressing-Upper body Patient retrieves clothing No items: Patient applies/removes UE n/a prosthesis or orthosis: Upper Body Dressing FIM Score 5. Supv./Set-Up ([place] sets out clothes or applies pros./orth.) Dressing-lower body Patient retrieves clothing No items: Patient applies/removes LE n/a prosthesis or orthosis: Lower Body Dressing FIM Score 4. Minimal Assistance (Patient = 75% or more. Needs touching.) - Labs CBC & Chem 7: 09/15/18 04:50 09/15/18 04:50 Labs: Laboratory Results - last 72 hr 09/12/18 09/12/18 09/13/18 12:53 16:38 06:17 WBC RBC Hgb Hct MCV MCH MCHC RDW Plt Count Lymph % (Auto) [place] % (Auto) Eos % (Auto) Baso % (Auto) Lymph # [place] # Eos # Baso # Seg Neutrophils % Seg Neutrophils # Sodium Potassium Chloride Carbon Dioxide Anion Gap BUN Creatinine Estimated GFR BUN/Creatinine Ratio Glucose POC Glucose 108 H 114 H 96 Calcium 09/13/18 09/13/18 09/13/18 12:27 16:24 22:25 WBC RBC Hgb Hct MCV MCH MCHC RDW Plt Count Lymph % (Auto) [place] % (Auto) Eos % (Auto) Baso % (Auto) Lymph # [place] # Eos # Baso # Seg Neutrophils % Seg Neutrophils # Sodium Potassium Chloride Carbon Dioxide Anion Gap BUN Creatinine Estimated GFR BUN/Creatinine Ratio Glucose POC Glucose 132 H 130 H 114 H Calcium 09/14/18 09/14/18 09/14/18 06:45 12:12 18:45 WBC RBC Hgb Hct MCV MCH MCHC RDW Plt Count Lymph % (Auto) [place] % (Auto) Eos % (Auto) Baso % (Auto) Lymph # [place] # Eos # Baso # Seg Neutrophils % Seg Neutrophils # Sodium Potassium Chloride Carbon Dioxide Anion Gap BUN Creatinine Estimated GFR BUN/Creatinine Ratio Glucose POC Glucose 102 99 122 H Calcium 09/14/18 09/15/18 09/15/18 21:52 04:50 04:50 WBC 5.8 RBC 2.95 L Hgb 9.7 L Hct 29.7 L MCV 101 H MCH 33 H MCHC 33 RDW 18.2 H Plt Count 293 Lymph % (Auto) 22.9 [place] % (Auto) 8.5 H Eos % (Auto) 5.6 H Baso % (Auto) 1.3 Lymph # 1.3 [place] # 0.5 Eos # 0.3 Baso # 0.1 Seg Neutrophils % 61.7 Seg Neutrophils # 3.6 Sodium 141 Potassium 3.9 Chloride 103.3 Carbon Dioxide 31 H Anion Gap 11 BUN 10 Creatinine 0.6 L Estimated GFR > 60 BUN/Creatinine Ratio 17 Glucose 102 H POC Glucose 115 H Calcium 9.2 09/15/18 05:31 WBC RBC Hgb Hct MCV MCH MCHC RDW Plt Count Lymph % (Auto) [place] % (Auto) Eos % (Auto) Baso % (Auto) Lymph # [place] # Eos # Baso # Seg Neutrophils % Seg Neutrophils # Sodium Potassium Chloride Carbon Dioxide Anion Gap BUN Creatinine Estimated GFR BUN/Creatinine Ratio Glucose POC Glucose 101 Calcium Assessment and Plan Z73.6 ADL dysfunction: OT will work on improving ability to perform ADLs (including assistive devices) to increase independence and decrease caregiver burden and improve functional transfers and mobility training. R26.2 Difficulty walking: PT will work on gait training and proper use of assistive devices and advance as appropriate to use of stairs and outside ambulation on uneven surfaces. R26.81 Unsteadiness on feet: PT will work on improving static and dynamic sitting and standing balance as well as proper use of assistive devices to decrease risk of falls. R26.89 Abnormality of gait: PT will work to improve safety and efficiency of gait through neuromotor training and gait training along with instruction on proper use of assistive devices. M62.81 Muscle weakness: PT & OT will work on strengthening exercises to improve functional strength including mixture of closed and open kinetic chain exercises. R53.81 Debility: PT & OT will work on improving overall functional status to improve participation with ADLs, mobility and social involvement. R53.83 Fatigue: PT & OT will work on improving endurance through aerobic exercises and therapeutic activity while monitoring patients tolerance for activity and vital signs as needed. I10 Hypertension: Cont to monitor, not on anti hypertensives E78.5 Hyperlipidemia: cont statin I48.91 AFib: Continue amiodarone, monitor R13.13 Dysphagia: Continue CHIEF WELLNESS OFFICER and advance as able. FEES or MBSS as needed. Tolerating PO diet (mech soft/ground/nectar) D64.9 Anemia: workup ordered, replace as needed COPD DVT ppx: on Eliquis Pain: Continue physical modalities in therapy and pain medications as needed to achieve functional pain control. Sleep: Monitor and address as needed. Bowel: Monitor and address as needed. Appetite: Monitor and address as needed when appropriate. Discharge planning: Pending therapy progress and care plan meeting. Will continue discussion with therapy team, SW, patient and family. Restrictions/ Precautions: Falls, aspiration WB status: FWB Functional Hx: ADLs: Independent and working Cognition: Independent Mobility: independent Consults: Pulmonology for Pulm management Appreciate assistance Barriers to Discharge: Decreased mobility and ability to perform self care, weakness, balance deficits Estimated Length of Stay: 14-21 days - look to d/c Wednesday Discharge Destination: Home with family
[2018-09-15 17:12] LABS: Iron 50 ug/dL (49-181); Total Iron Binding Capacity 267 mcg/dL (250-450)
[2018-09-15] MEDS: LANTUS SUB-Q SCH (22:00)
[2018-09-16] MEDS: TYLENOL FEEDTUBE PRN ×3 (07:01→22:05)
[2018-09-16] MEDS: BROVANA NEBU IH SCH ×2 (09:39→20:34)
[2018-09-16] MEDS: PULMICORT IH SCH ×2 (09:39→20:34)
[2018-09-16] MEDS: XOPENEX IH SCH (09:39)
[2018-09-16] MEDS: ELIQUIS FEEDTUBE SCH ×2 (10:04→22:06)
[2018-09-16] MEDS: VITAMIN B-12 FEEDTUBE SCH (10:04)
[2018-09-16] MEDS: CORDARONE FEEDTUBE SCH (10:05)
[2018-09-16] MEDS: PRAVACHOL FEEDTUBE SCH (10:05)
[2018-09-16] MEDS: FLOMAX PO SCH (10:05)
[2018-09-16] MEDS: PEPCID FEEDTUBE SCH ×2 (10:05→22:07)
--- NOTE | 2018-09-16 10:41 | Fluoroscopy Report ---
MODIFIED BARIUM SWALLOW INDICATION: Dysphagia. COMPARISON: None similar. IMAGES/CINE CLIPS: 1 FINDINGS: Fluoroscopy with video provided by radiologist for speech therapist to assess the swallowing mechanism. Food items of various consistencies given. No aspiration or penetration noted. Multilevel advanced cervical spondylosis. Edentulous jaw. IMPRESSION: Successful modified barium swallow. Please refer to detailed report from speech pathologist. Thank you for the opportunity to participate in this patient's care.
[2018-09-16] MEDS: HumaLOG SUB-Q SCH ×2 (12:00→18:08)
[2018-09-16] MEDS ORDERED: DULCOLAX PR PRN (18:47)
[2018-09-16] MEDS: LANTUS SUB-Q SCH (22:07)
[2018-09-16] MEDS: MIRALAX 3350 PO SCH (22:08)
[2018-09-17] MEDS: XOPENEX IH SCH
[2018-09-17] MEDS: HumaLOG SUB-Q SCH ×3 (00:56→22:01)
[2018-09-17] MEDS ORDERED: HumaLOG SUB-Q SCH (07:00)
[2018-09-17] MEDS: PULMICORT IH SCH ×2 (07:15→20:05)
[2018-09-17] MEDS: BROVANA NEBU IH SCH ×2 (07:15→20:05)
--- NOTE | 2018-09-17 09:55 | Progress Note ---
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 After evaluation by his word processing machine operator he was admitted to [facility]. He was found to have atrial fibrillation with RVR, which was refractory to Cardizem drip but improved with amiodarone drip. He developed an acute hypoxemic respiratory failure and was admitted to the ICU and intubated. Patient had a complicated course which included the need for trach/PEG. He developed sepsis and pneumonia which were treated with antibiotics. Zuniga was inserted by urology due to obstructive uropathy and a urethral stricture and is to remain in place. He remains on trach with blow by O2. Patient is participating with therapy and making good progress. Endurance and balance improving. +BM. Pain is controlled. PEG tube is ok. Eating PO, advanced to reg/thins after MBS. Vital signs are stable. GLU in good range, continue to cover with SSI and monitor. On 2LNC at home Urology attempted bladder trial but had to reinsert due to no output. Flomax started and will re-attempt Wednesday. Encouraged to drink plenty of water after Zuniga is removed Decannulation, no issues, stoma almost closed, asked nursing to place xeroform over stoma to improve closure.. Seems to be swallowing easier per patient. [place] improving. Anemia worse since admission - components all WNL but Fe on lower side, will replace for short time to see if Hgb improves. No further issues from patient, nursing, or therapist. Look to d/c Wednesday 09/20 All available medical records, therapy notes, vitals and labs were reviewed. Objective - Exam Narrative Exam: MUSCULOSKELETAL SPECIALTY EXAM Constitutional: Well developed, well nourished, appropriately groomed EENT: EOMI. Trach stoma covered, some phlegm on bandage. Hearing intact to voice. Vocal quality improved Respiratory: Clear to ascultation bilaterally, decreased at bases, no increased work of b reathing, on NC. Cardiovascular Regular Rate/ Rhythm, no swelling edema or tenderness in all 4 extremities. All 4 extremities warm. GI : + bowel sounds, soft, NTTP, nondistended, PEG : Zuniga INTEGUMENTARY: Normal in all 4 extremities, scars on LE Musuloskeletal: BUE and BLE normal without defect, crepitus, sublux, effusion, or TTP. BUE and BLE 4-/5, adequate ROM with normal tone. NEURO: CN 2-12 grossly intact. Sensation intact in all extremities. No tremor noted. POSTURE and GAIT: Posture good, gait slow with occ LOB but improved, managing lines ok PSYCH: Alert, orientated x3, affect appears normal. Insight appears intact. - Constitutional Vitals: Vital Signs - 12hr 09/16/18 09/16/18 09/17/18 22:01 22:42 05:38 Temperature 36.3 C L 36.6 C Pulse Rate 75 76 Pulse Rate [ Bilateral Throughout] Respiratory 17 17 17 Rate Respiratory Rate [Bilateral Throughout] Blood Pressure 126/75 119/60 [Left] O2 Sat by Pulse 94 95 94 Oximetry 09/17/18 09/17/18 09/17/18 07:15 07:25 07:28 Temperature 36.8 C Pulse Rate 80 Pulse Rate [ 75 77 Bilateral Throughout] Respiratory 19 Rate Respiratory 16 16 Rate [Bilateral Throughout] Blood Pressure 125/69 [Left] O2 Sat by Pulse 94 94 Oximetry - Allied health notes Allied health notes reviewed: nursing, PT, ST, OT FIMS assessment as documented by PT/OT/ST: Grooming Patient cleans teeth/dentures: Yes Patient heck/brushes hair: Yes Patient washes, rinses and Yes dries face: Patient washes, rinses and Yes dries hands: Patient shaves: No Patient applies make-up: No Patient performs (no make-up/ 4/4 (100%) shaving): Patient performs (w/ make-up/ 0/5 (0%) shaving): Grooming FIM Score 6. Modified [place] (Needs equipment/device . Extra time.) Toileting Toileting Device Commode over Toilet Patient able to: Adjust clothes before,Clean self,Adjust clothes after Patient able to perform: 3/3 (100%) Toileting FIM Score 4. Minimal Assistance (Patient = 75% or more. Needs touching.) Social interaction/Memory/Problem solving Social Interaction FIM Score 7. Complete [place] (Interacts appropriately. Controls temper.) Memory FIM Score 7. Complete [place] (Remembers people and routines.) Problem Solving FIM Score 7. Complete [place] (Solves complex problems. Self corrects.) Transfers Mode of Locomotion: Walking Bed/Chair/Wheelchair Transfers 6. Modified [place] (Uses device, sliding FIM Score board, prosth./orth.) Toilet Transfers FIM Score 5. Supervision (Needs supervision or cueing.) Patient transferred to: Shower Tub Transfers FIM Score 0. Activity does not occur Shower Transfers FIM Score 5. Supervision (Needs supv. or set-up with device.) Locomotion- Stairs Device used on Stairs Straight Cane Number of Stairs Ascended/ 20 Descended Patient used handrail/support: Yes Stairs FIM Score 5. Supervision (12-14 stairs w/ supv. 4-6 stairs independently.) Locomotion- walk/wheelchair Most Frequent Mode of Walking Locomotion: Ambulation Distance 725 Walking FIM Score 5. Supervision (Minimum 150 ft. supv./cues or 50 ft. independently.) Wheelchair Propulsion Distance 350 Wheelchair FIM Score 6. Modified [place] (Wheels a minimum of 150 ft.) Eating Eating FIM Score 5. Supervision/Set-Up (Needs help w/ containers, cutting meat, etc.) Dressing-Upper body Patient retrieves clothing Yes items: Patient applies/removes UE No prosthesis or orthosis: Upper Body Dressing FIM Score 7. Complete [place] (Dresses self. Gets own clothes.) Dressing-lower body Patient retrieves clothing Yes items: Patient applies/removes LE No prosthesis or orthosis: Lower Body Dressing FIM Score 6. Modified [place] (Needs equipment, velcro or pros./orth.) - Labs CBC & Chem 7: 09/15/18 04:50 09/15/18 04:50 Labs: Laboratory Results - last 72 hr 09/14/18 09/14/18 09/14/18 12:12 18:45 21:52 WBC RBC Hgb Hct MCV MCH MCHC RDW Plt Count Lymph % (Auto) [place] % (Auto) Eos % (Auto) Baso % (Auto) Lymph # [place] # Eos # Baso # Seg Neutrophils % Seg Neutrophils # Sodium Potassium Chloride Carbon Dioxide Anion Gap BUN Creatinine Estimated GFR BUN/Creatinine Ratio Glucose POC Glucose 99 122 H 115 H Calcium Iron TIBC Vitamin B12 Folate 09/15/18 09/15/18 09/15/18 04:50 04:50 05:31 WBC 5.8 RBC 2.95 L Hgb 9.7 L Hct 29.7 L MCV 101 H MCH 33 H MCHC 33 RDW 18.2 H Plt Count 293 Lymph % (Auto) 22.9 [place] % (Auto) 8.5 H Eos % (Auto) 5.6 H Baso % (Auto) 1.3 Lymph # 1.3 [place] # 0.5 Eos # 0.3 Baso # 0.1 Seg Neutrophils % 61.7 Seg Neutrophils # 3.6 Sodium 141 Potassium 3.9 Chloride 103.3 Carbon Dioxide 31 H Anion Gap 11 BUN 10 Creatinine 0.6 L Estimated GFR > 60 BUN/Creatinine Ratio 17 Glucose 102 H POC Glucose 101 Calcium 9.2 Iron TIBC Vitamin B12 Folate 09/15/18 09/15/18 09/15/18 16:22 16:24 16:24 WBC RBC Hgb Hct MCV MCH MCHC RDW Plt Count Lymph % (Auto) [place] % (Auto) Eos % (Auto) Baso % (Auto) Lymph # [place] # Eos # Baso # Seg Neutrophils % Seg Neutrophils # Sodium Potassium Chloride Carbon Dioxide Anion Gap BUN Creatinine Estimated GFR BUN/Creatinine Ratio Glucose POC Glucose 110 H Calcium Iron 50 TIBC 267 Vitamin B12 1839 H Folate 09/15/18 09/15/18 09/16/18 16:24 22:40 07:13 WBC RBC Hgb Hct MCV MCH MCHC RDW Plt Count Lymph % (Auto) [place] % (Auto) Eos % (Auto) Baso % (Auto) Lymph # [place] # Eos # Baso # Seg Neutrophils % Seg Neutrophils # Sodium Potassium Chloride Carbon Dioxide Anion Gap BUN Creatinine Estimated GFR BUN/Creatinine Ratio Glucose POC Glucose 132 H 101 Calcium Iron TIBC Vitamin B12 Folate 16.84 09/16/18 09/16/18 17:46 21:59 WBC RBC Hgb Hct MCV MCH MCHC RDW Plt Count Lymph % (Auto) [place] % (Auto) Eos % (Auto) Baso % (Auto) Lymph # [place] # Eos # Baso # Seg Neutrophils % Seg Neutrophils # Sodium Potassium Chloride Carbon Dioxide Anion Gap BUN Creatinine Estimated GFR BUN/Creatinine Ratio Glucose POC Glucose 127 H 106 H Calcium Iron TIBC Vitamin B12 Folate Assessment and Plan Z73.6 ADL dysfunction: OT will work on improving ability to perform ADLs (including assistive devices) to increase independence and decrease caregiver burden and improve functional transfers and mobility training. R26.2 Difficulty walking: PT will work on gait training and proper use of assistive devices and advance as appropriate to use of stairs and outside ambulation on uneven surfaces. R26.81 Unsteadiness on feet: PT will work on improving static and dynamic sitting and standing balance as well as proper use of assistive devices to decrease risk of falls. R26.89 Abnormality of gait: PT will work to improve safety and efficiency of gait through neuromotor training and gait training along with instruction on proper use of assistive devices. M62.81 Muscle weakness: PT & OT will work on strengthening exercises to improve functional strength including mixture of closed and open kinetic chain exercises. R53.81 Debility: PT & OT will work on improving overall functional status to improve participation with ADLs, mobility and social involvement. R53.83 Fatigue: PT & OT will work on improving endurance through aerobic exercises and therapeutic activity while monitoring patients tolerance for activity and vital signs as needed. I10 Hypertension: Cont to monitor, not on anti hypertensives E78.5 Hyperlipidemia: cont statin I48.91 AFib: Continue amiodarone, monitor R13.13 Dysphagia: Continue HOUSING COUNSELOR and advance as able. FEES or MBSS as needed. Tolerating PO diet (Reg/thins) D64.9 Anemia: workup ordered, replace as needed COPD DVT ppx: on Eliquis Pain: Continue physical modalities in therapy and pain medications as needed to achieve functional pain control. Sleep: Monitor and address as needed. Bowel: Monitor and address as needed. Appetite: Monitor and address as needed when appropriate. Discharge planning: Pending therapy progress and care plan meeting. Will continue discussion with therapy team, SW, patient and family. Restrictions/ Precautions: Falls, aspiration WB status: FWB Functional Hx: ADLs: Independent and working Cognition: Independent Mobility: independent Consults: Pulmonology for Pulm management Urology for stricture/zuniga removal Appreciate assistance Barriers to Discharge: Decreased mobility and ability to perform self care, weakness, balance deficits Estimated Length of Stay: 14-21 days - look to d/c Wednesday Discharge Destination: Home with family
[2018-09-17] MEDS: TYLENOL FEEDTUBE PRN ×2 (10:58→20:36)
[2018-09-17] MEDS: FLOMAX PO SCH (10:59)
[2018-09-17] MEDS: PEPCID FEEDTUBE SCH ×2 (11:00→21:58)
[2018-09-17] MEDS: CORDARONE FEEDTUBE SCH (11:00)
[2018-09-17] MEDS: VITAMIN B-12 FEEDTUBE SCH (11:00)
[2018-09-17] MEDS: PRAVACHOL FEEDTUBE SCH (11:00)
[2018-09-17] MEDS: ELIQUIS FEEDTUBE SCH ×2 (11:01→21:57)
[2018-09-17] MEDS: MIRALAX 3350 PO SCH (11:05)
--- NOTE | 2018-09-17 21:57 | Progress Note ---
Assessment and Plan Patient alert, awake. Patient is De canulated .Tolerating de canulation good. Patient is on 2 litres O2.O2 saturation 93%. No acute respiratory distress. - Patient Problems (1) Acute respiratory failure Current Visit: No Status: Acute Qualifiers: Respiratory failure complication: hypoxia Qualified Code(s): J96.01 - Acute respiratory failure with hypoxia Plan to address problem: Patient de canulated. O2 2 litres via nasal canula. Brovanna/Budesonide aerosol treatments q 12 hours. Xopenx aerosol treatments q 8 hours prn for shortness of breath. Patient is on Apixaban. Continue famotidine. (2) ARF (acute renal failure) with tubular necrosis Current Visit: No Status: Acute Plan to address problem: Management as per nephrology. (3) Atrial fibrillation with RVR Current Visit: No Status: Acute Plan to address problem: Management as per cardiology. Patient is on Apixaban. (4) CHF (congestive heart failure) Current Visit: No Status: Acute Qualifiers: Heart failure type: systolic Heart failure chronicity: acute Qualified Code(s): I50.21 - Acute systolic (congestive) heart failure Plan to address problem: Mangemet as per cardiology. (5) COPD exacerbation Current Visit: No Status: Acute Plan to address problem: Patient decanulated. O2 2 litres via nasal canula. Brovanna/Budesonide aerosol treatments q 12 hours. Xopenx aerosol treatments q 8 hours prn for shortness of breath. Patient is on Apixaban. Continue famotidine Subjective Date of service: 09/17/18 Principal diagnosis: Acute on Chronic Hypoxemic Respiratory failure; AE-COPD; s/p trachesotomy Interval history: Patient alert, awake. Patient is De canulated .Tolerating de canulation good. Patient is on 2 litres O2.O2 saturation 93%. No acute respiratory distress. Objective Vital Signs - 12hr 09/17/18 09/17/18 09/17/18 12:15 15:40 19:50 Temperature 98.7 F 98.7 F Pulse Rate 63 80 Pulse Rate [ 70 Bilateral Throughout] Respiratory 19 19 Rate Respiratory 20 Rate [Bilateral Throughout] Blood Pressure Blood Pressure 115/65 108/63 [Left] O2 Sat by Pulse 93 922 H Oximetry 09/17/18 09/17/18 20:05 20:49 Temperature 97.7 F Pulse Rate 79 Pulse Rate [ 76 Bilateral Throughout] Respiratory 18 Rate Respiratory 16 Rate [Bilateral Throughout] Blood Pressure 124/79 Blood Pressure [Left] O2 Sat by Pulse 93 93 Oximetry Constitutional: no acute distress, alert Eyes: non-icteric ENT: oropharynx moist Neck: supple, no JVD, other (Tracheostomy and trach tube is capped.) Effort: normal Ascultation: Bilateral: diminished breath sounds, rhonchi (scant) Percussion: Bilateral: not dull Cardiovascular: regular rate and rhythm Gastrointestinal: normoactive bowel sounds, soft, non-tender, non-distended Integumentary: normal Extremities: no cyanosis, no edema, pink and warm, pulses normal, no ischemia or petechiae Neurologic: normal mental status, non-focal exam, pupils equal and round, CN II- XII normal Psychiatric: mood appropriate, affect normal CBC and BMP: 09/15/18 04:50 09/15/18 04:50 ABG, PT/INR, D-dimer: ABG POC ABG pH 7.417 (7.35-7.45) 09/01/18 11:52 POC ABG pCO2 50.7 (35-45) H 09/01/18 11:52 POC ABG pO2 53 (80-105) L 09/01/18 11:52 POC ABG HCO3 32.6 09/01/18 11:52 POC ABG Total CO2 34 09/01/18 11:52 POC ABG O2 Sat 87 09/01/18 11:52 Abnormal lab findings: Abnormal Labs 08/31/18 08/31/18 08/31/18 06:31 12:50 16:31 RBC Hgb Hct MCV MCH RDW [place] % (Auto) Eos % (Auto) POC ABG pCO2 POC ABG pO2 Chloride Carbon Dioxide Creatinine Glucose POC Glucose 129 H 144 H Hemoglobin A1c 6.9 H Vitamin B12 08/31/18 08/31/18 09/01/18 17:10 22:17 01:54 RBC Hgb Hct MCV MCH RDW [place] % (Auto) Eos % (Auto) POC ABG pCO2 POC ABG pO2 Chloride Carbon Dioxide Creatinine Glucose POC Glucose 133 H 140 H 133 H Hemoglobin A1c Vitamin B12 09/01/18 09/01/18 09/01/18 04:28 04:28 06:18 RBC 3.41 L Hgb 11.3 L Hct 34.7 L MCV 102 H MCH 33 H RDW 18.2 H [place] % (Auto) Eos % (Auto) POC ABG pCO2 POC ABG pO2 Chloride 94.8 L Carbon Dioxide 33 H Creatinine 0.5 L Glucose 130 H POC Glucose 130 H Hemoglobin A1c Vitamin B12 09/01/18 09/01/18 09/01/18 11:52 14:24 16:37 RBC Hgb Hct MCV MCH RDW [place] % (Auto) Eos % (Auto) POC ABG pCO2 50.7 H POC ABG pO2 53 L Chloride Carbon Dioxide Creatinine Glucose POC Glucose 168 H 142 H Hemoglobin A1c Vitamin B12 09/01/18 09/02/18 09/02/18 23:40 06:48 11:41 RBC Hgb Hct MCV MCH RDW [place] % (Auto) Eos % (Auto) POC ABG pCO2 POC ABG pO2 Chloride Carbon Dioxide Creatinine Glucose POC Glucose 129 H 135 H 144 H Hemoglobin A1c Vitamin B12 09/02/18 09/03/18 09/03/18 17:29 00:11 05:56 RBC Hgb Hct MCV MCH RDW [place] % (Auto) Eos % (Auto) POC ABG pCO2 POC ABG pO2 Chloride Carbon Dioxide Creatinine Glucose POC Glucose 114 H 143 H 161 H Hemoglobin A1c Vitamin B12 09/03/18 09/03/18 09/03/18 11:25 17:25 22:47 RBC Hgb Hct MCV MCH RDW [place] % (Auto) Eos % (Auto) POC ABG pCO2 POC ABG pO2 Chloride Carbon Dioxide Creatinine Glucose POC Glucose 125 H 125 H 112 H Hemoglobin A1c Vitamin B12 09/04/18 09/04/18 09/04/18 11:02 17:43 22:23 RBC Hgb Hct MCV MCH RDW [place] % (Auto) Eos % (Auto) POC ABG pCO2 POC ABG pO2 Chloride Carbon Dioxide Creatinine Glucose POC Glucose 143 H 169 H 114 H Hemoglobin A1c Vitamin B12 09/05/18 09/05/18 09/06/18 11:29 17:56 01:08 RBC Hgb Hct MCV MCH RDW [place] % (Auto) Eos % (Auto) POC ABG pCO2 POC ABG pO2 Chloride Carbon Dioxide Creatinine Glucose POC Glucose 130 H 137 H 108 H Hemoglobin A1c Vitamin B12 09/07/18 09/07/18 09/07/18 06:40 06:40 22:22 RBC 3.41 L Hgb 11.2 L Hct 34.8 L MCV 102 H MCH 33 H RDW 18.9 H [place] % (Auto) Eos % (Auto) POC ABG pCO2 POC ABG pO2 Chloride Carbon Dioxide Creatinine 0.6 L Glucose 105 H POC Glucose 113 H Hemoglobin A1c Vitamin B12 09/08/18 09/08/18 09/08/18 11:59 17:23 22:12 RBC Hgb Hct MCV MCH RDW [place] % (Auto) Eos % (Auto) POC ABG pCO2 POC ABG pO2 Chloride Carbon Dioxide Creatinine Glucose POC Glucose 141 H 127 H 111 H Hemoglobin A1c Vitamin B12 09/09/18 09/09/18 09/09/18 12:23 17:14 23:01 RBC Hgb Hct MCV MCH RDW [place] % (Auto) Eos % (Auto) POC ABG pCO2 POC ABG pO2 Chloride Carbon Dioxide Creatinine Glucose POC Glucose 113 H 114 H 122 H Hemoglobin A1c Vitamin B12 09/10/18 09/10/18 09/10/18 12:22 16:53 23:30 RBC Hgb Hct MCV MCH RDW [place] % (Auto) Eos % (Auto) POC ABG pCO2 POC ABG pO2 Chloride Carbon Dioxide Creatinine Glucose POC Glucose 146 H 118 H 140 H Hemoglobin A1c Vitamin B12 09/11/18 09/11/18 09/11/18 06:21 16:30 21:57 RBC Hgb Hct MCV MCH RDW [place] % (Auto) Eos % (Auto) POC ABG pCO2 POC ABG pO2 Chloride Carbon Dioxide Creatinine Glucose POC Glucose 106 H 124 H 121 H Hemoglobin A1c Vitamin B12 09/12/18 09/12/18 09/13/18 12:53 16:38 12:27 RBC Hgb Hct MCV MCH RDW [place] % (Auto) Eos % (Auto) POC ABG pCO2 POC ABG pO2 Chloride Carbon Dioxide Creatinine Glucose POC Glucose 108 H 114 H 132 H Hemoglobin A1c Vitamin B12 09/13/18 09/13/18 09/14/18 16:24 22:25 18:45 RBC Hgb Hct MCV MCH RDW [place] % (Auto) Eos % (Auto) POC ABG pCO2 POC ABG pO2 Chloride Carbon Dioxide Creatinine Glucose POC Glucose 130 H 114 H 122 H Hemoglobin A1c Vitamin B12 09/14/18 09/15/18 09/15/18 21:52 04:50 04:50 RBC 2.95 L Hgb 9.7 L Hct 29.7 L MCV 101 H MCH 33 H RDW 18.2 H [place] % (Auto) 8.5 H Eos % (Auto) 5.6 H POC ABG pCO2 POC ABG pO2 Chloride Carbon Dioxide 31 H Creatinine 0.6 L Glucose 102 H POC Glucose 115 H Hemoglobin A1c Vitamin B12 09/15/18 09/15/18 09/15/18 16:22 16:24 22:40 RBC Hgb Hct MCV MCH RDW [place] % (Auto) Eos % (Auto) POC ABG pCO2 POC ABG pO2 Chloride Carbon Dioxide Creatinine Glucose POC Glucose 110 H 132 H Hemoglobin A1c Vitamin B12 1839 H 09/16/18 09/16/18 09/17/18 17:46 21:59 11:27 RBC Hgb Hct MCV MCH RDW [place] % (Auto) Eos % (Auto) POC ABG pCO2 POC ABG pO2 Chloride Carbon Dioxide Creatinine Glucose POC Glucose 127 H 106 H 133 H Hemoglobin A1c Vitamin B12 Allied health notes reviewed: PT
[2018-09-18] MEDS: XOPENEX IH SCH (06:50)
[2018-09-18] MEDS: BROVANA NEBU IH SCH ×2 (07:30→19:28)
[2018-09-18] MEDS: PULMICORT IH SCH ×2 (07:30→19:28)
[2018-09-18] MEDS: PRAVACHOL FEEDTUBE SCH (11:45)
[2018-09-18] MEDS: ELIQUIS FEEDTUBE SCH ×2 (11:45→22:35)
[2018-09-18] MEDS: CORDARONE FEEDTUBE SCH (11:45)
[2018-09-18] MEDS: VITAMIN B-12 FEEDTUBE SCH (11:45)
[2018-09-18] MEDS: MIRALAX 3350 PO SCH (11:45)
[2018-09-18] MEDS: FLOMAX PO SCH (11:45)
[2018-09-18] MEDS: PEPCID FEEDTUBE SCH ×2 (11:45→22:35)
--- NOTE | 2018-09-18 17:55 | Progress Note ---
Assessment and Plan Patient sleeping at this time. Patient is De canulated .Tolerating de canulation good. Patient is on 2 litres O2.O2 saturation 93%. No acute respiratory distress. - Patient Problems (1) Acute respiratory failure Current Visit: No Status: Acute Qualifiers: Respiratory failure complication: hypoxia Qualified Code(s): J96.01 - Acute respiratory failure with hypoxia Plan to address problem: Patient de canulated. O2 2 litres via nasal canula. Brovanna/Budesonide aerosol treatments q 12 hours. Xopenx aerosol treatments q 8 hours prn for shortness of breath. Patient is on Apixaban. Continue famotidine. (2) ARF (acute renal failure) with tubular necrosis Current Visit: No Status: Acute Plan to address problem: Management as per nephrology. (3) Atrial fibrillation with RVR Current Visit: No Status: Acute Plan to address problem: Management as per cardiology. Patient is on Apixaban. (4) CHF (congestive heart failure) Current Visit: No Status: Acute Qualifiers: Heart failure type: systolic Heart failure chronicity: acute Qualified Code(s): I50.21 - Acute systolic (congestive) heart failure Plan to address problem: Mangemet as per cardiology. (5) COPD exacerbation Current Visit: No Status: Acute Plan to address problem: Patient decanulated. O2 2 litres via nasal canula. Brovanna/Budesonide aerosol treatments q 12 hours. Xopenx aerosol treatments q 8 hours prn for shortness of breath. Patient is on Apixaban. Continue famotidine Subjective Date of service: 09/18/18 Principal diagnosis: Acute on Chronic Hypoxemic Respiratory failure; AE-COPD; s/p trachesotomy Interval history: Patient sleeping at this time. Patient is De canulated .Tolerating de canulation good. Patient is on 2 litres O2.O2 saturation 93%. No acute respiratory distress. Objective Vital Signs - 12hr 09/18/18 09/18/18 09/18/18 07:30 07:38 09:00 Temperature 97.7 F Pulse Rate 83 Pulse Rate [ 100 H 98 H Bilateral Throughout] Respiratory 20 Rate Respiratory 18 18 Rate [Bilateral Throughout] Blood Pressure 116/65 [Left] O2 Sat by Pulse 95 93 Oximetry Constitutional: no acute distress, alert Eyes: non-icteric ENT: oropharynx moist Neck: supple, no JVD, other (Tracheostomy and trach tube is capped.) Effort: normal Ascultation: Bilateral: diminished breath sounds, rhonchi (scant) Percussion: Bilateral: not dull Cardiovascular: regular rate and rhythm Gastrointestinal: normoactive bowel sounds, soft, non-tender, non-distended Integumentary: normal Extremities: no cyanosis, no edema, pink and warm, pulses normal, no ischemia or petechiae Neurologic: normal mental status, non-focal exam, pupils equal and round, CN II- XII normal Psychiatric: mood appropriate, affect normal CBC and BMP: 09/15/18 04:50 09/15/18 04:50 ABG, PT/INR, D-dimer: ABG POC ABG pH 7.417 (7.35-7.45) 09/01/18 11:52 POC ABG pCO2 50.7 (35-45) H 09/01/18 11:52 POC ABG pO2 53 (80-105) L 09/01/18 11:52 POC ABG HCO3 32.6 09/01/18 11:52 POC ABG Total CO2 34 09/01/18 11:52 POC ABG O2 Sat 87 09/01/18 11:52 Abnormal lab findings: Abnormal Labs 08/31/18 08/31/18 08/31/18 06:31 12:50 16:31 RBC Hgb Hct MCV MCH RDW [place] % (Auto) Eos % (Auto) POC ABG pCO2 POC ABG pO2 Chloride Carbon Dioxide Creatinine Glucose POC Glucose 129 H 144 H Hemoglobin A1c 6.9 H Vitamin B12 08/31/18 08/31/18 09/01/18 17:10 22:17 01:54 RBC Hgb Hct MCV MCH RDW [place] % (Auto) Eos % (Auto) POC ABG pCO2 POC ABG pO2 Chloride Carbon Dioxide Creatinine Glucose POC Glucose 133 H 140 H 133 H Hemoglobin A1c Vitamin B12 09/01/18 09/01/18 09/01/18 04:28 04:28 06:18 RBC 3.41 L Hgb 11.3 L Hct 34.7 L MCV 102 H MCH 33 H RDW 18.2 H [place] % (Auto) Eos % (Auto) POC ABG pCO2 POC ABG pO2 Chloride 94.8 L Carbon Dioxide 33 H Creatinine 0.5 L Glucose 130 H POC Glucose 130 H Hemoglobin A1c Vitamin B12 09/01/18 09/01/18 09/01/18 11:52 14:24 16:37 RBC Hgb Hct MCV MCH RDW [place] % (Auto) Eos % (Auto) POC ABG pCO2 50.7 H POC ABG pO2 53 L Chloride Carbon Dioxide Creatinine Glucose POC Glucose 168 H 142 H Hemoglobin A1c Vitamin B12 09/01/18 09/02/18 09/02/18 23:40 06:48 11:41 RBC Hgb Hct MCV MCH RDW [place] % (Auto) Eos % (Auto) POC ABG pCO2 POC ABG pO2 Chloride Carbon Dioxide Creatinine Glucose POC Glucose 129 H 135 H 144 H Hemoglobin A1c Vitamin B12 09/02/18 09/03/18 09/03/18 17:29 00:11 05:56 RBC Hgb Hct MCV MCH RDW [place] % (Auto) Eos % (Auto) POC ABG pCO2 POC ABG pO2 Chloride Carbon Dioxide Creatinine Glucose POC Glucose 114 H 143 H 161 H Hemoglobin A1c Vitamin B12 09/03/18 09/03/18 09/03/18 11:25 17:25 22:47 RBC Hgb Hct MCV MCH RDW [place] % (Auto) Eos % (Auto) POC ABG pCO2 POC ABG pO2 Chloride Carbon Dioxide Creatinine Glucose POC Glucose 125 H 125 H 112 H Hemoglobin A1c Vitamin B12 09/04/18 09/04/18 09/04/18 11:02 17:43 22:23 RBC Hgb Hct MCV MCH RDW [place] % (Auto) Eos % (Auto) POC ABG pCO2 POC ABG pO2 Chloride Carbon Dioxide Creatinine Glucose POC Glucose 143 H 169 H 114 H Hemoglobin A1c Vitamin B12 09/05/18 09/05/18 09/06/18 11:29 17:56 01:08 RBC Hgb Hct MCV MCH RDW [place] % (Auto) Eos % (Auto) POC ABG pCO2 POC ABG pO2 Chloride Carbon Dioxide Creatinine Glucose POC Glucose 130 H 137 H 108 H Hemoglobin A1c Vitamin B12 09/07/18 09/07/18 09/07/18 06:40 06:40 22:22 RBC 3.41 L Hgb 11.2 L Hct 34.8 L MCV 102 H MCH 33 H RDW 18.9 H [place] % (Auto) Eos % (Auto) POC ABG pCO2 POC ABG pO2 Chloride Carbon Dioxide Creatinine 0.6 L Glucose 105 H POC Glucose 113 H Hemoglobin A1c Vitamin B12 0109/08/18 09/08/18 11:59 17:23 22:12 RBC Hgb Hct MCV MCH RDW [place] % (Auto) Eos % (Auto) POC ABG pCO2 POC ABG pO2 Chloride Carbon Dioxide Creatinine Glucose POC Glucose 141 H 127 H 111 H Hemoglobin A1c Vitamin B12 09/09/18 09/09/18 09/09/18 12:23 17:14 23:01 RBC Hgb Hct MCV MCH RDW [place] % (Auto) Eos % (Auto) POC ABG pCO2 POC ABG pO2 Chloride Carbon Dioxide Creatinine Glucose POC Glucose 113 H 114 H 122 H Hemoglobin A1c Vitamin B12 09/10/18 09/10/18 09/10/18 12:22 16:53 23:30 RBC Hgb Hct MCV MCH RDW [place] % (Auto) Eos % (Auto) POC ABG pCO2 POC ABG pO2 Chloride Carbon Dioxide Creatinine Glucose POC Glucose 146 H 118 H 140 H Hemoglobin A1c Vitamin B12 09/11/18 09/11/18 09/11/18 06:21 16:30 21:57 RBC Hgb Hct MCV MCH RDW [place] % (Auto) Eos % (Auto) POC ABG pCO2 POC ABG pO2 Chloride Carbon Dioxide Creatinine Glucose POC Glucose 106 H 124 H 121 H Hemoglobin A1c Vitamin B12 09/12/18 09/12/18 09/13/18 12:53 16:38 12:27 RBC Hgb Hct MCV MCH RDW [place] % (Auto) Eos % (Auto) POC ABG pCO2 POC ABG pO2 Chloride Carbon Dioxide Creatinine Glucose POC Glucose 108 H 114 H 132 H Hemoglobin A1c Vitamin B12 09/13/18 09/13/18 09/14/18 16:24 22:25 18:45 RBC Hgb Hct MCV MCH RDW [place] % (Auto) Eos % (Auto) POC ABG pCO2 POC ABG pO2 Chloride Carbon Dioxide Creatinine Glucose POC Glucose 130 H 114 H 122 H Hemoglobin A1c Vitamin B12 09/14/18 09/15/18 09/15/18 21:52 04:50 04:50 RBC 2.95 L Hgb 9.7 L Hct 29.7 L MCV 101 H MCH 33 H RDW 18.2 H [place] % (Auto) 8.5 H Eos % (Auto) 5.6 H POC ABG pCO2 POC ABG pO2 Chloride Carbon Dioxide 31 H Creatinine 0.6 L Glucose 102 H POC Glucose 115 H Hemoglobin A1c Vitamin B12 09/15/18 09/15/18 09/15/18 16:22 16:24 22:40 RBC Hgb Hct MCV MCH RDW [place] % (Auto) Eos % (Auto) POC ABG pCO2 POC ABG pO2 Chloride Carbon Dioxide Creatinine Glucose POC Glucose 110 H 132 H Hemoglobin A1c Vitamin B12 1839 H 09/16/18 09/16/18 09/17/18 17:46 21:59 11:27 RBC Hgb Hct MCV MCH RDW [place] % (Auto) Eos % (Auto) POC ABG pCO2 POC ABG pO2 Chloride Carbon Dioxide Creatinine Glucose POC Glucose 127 H 106 H 133 H Hemoglobin A1c Vitamin B12 Allied health notes reviewed: PT
[2018-09-18] MEDS: TYLENOL FEEDTUBE PRN (20:21)
[2018-09-19] MEDS: XOPENEX IH SCH ×5 (01:50→15:05)
[2018-09-19] MEDS: ELIQUIS FEEDTUBE SCH ×3 (08:13→21:38)
[2018-09-19] MEDS: TYLENOL FEEDTUBE PRN ×3 (08:13→22:57)
[2018-09-19] MEDS: VITAMIN B-12 FEEDTUBE SCH (08:14)
[2018-09-19] MEDS: PRAVACHOL FEEDTUBE SCH ×2 (08:14→10:00)
[2018-09-19] MEDS: FLOMAX PO SCH (08:15)
[2018-09-19] MEDS: PEPCID FEEDTUBE SCH ×2 (08:15→21:38)
[2018-09-19] MEDS: MIRALAX 3350 PO SCH (08:15)
[2018-09-19] MEDS: CORDARONE FEEDTUBE SCH ×2 (08:15→10:00)
[2018-09-19] MEDS: BROVANA NEBU IH SCH (08:23)
[2018-09-19] MEDS: PULMICORT IH SCH (08:23)
--- NOTE | 2018-09-19 19:21 | Progress Note ---
Assessment and Plan Patient awake and well oriented.. Patient is De canulated .Tolerating de canulation good. Patient is on 2 litres O2.O2 saturation 93%. No acute respiratory distress. - Patient Problems (1) Acute respiratory failure Current Visit: No Status: Acute Qualifiers: Respiratory failure complication: hypoxia Qualified Code(s): J96.01 - Acute respiratory failure with hypoxia Plan to address problem: Patient de canulated. O2 2 litres via nasal canula. Brovanna/Budesonide aerosol treatments q 12 hours. Xopenx aerosol treatments q 8 hours prn for shortness of breath. Patient is on Apixaban. Continue famotidine. (2) ARF (acute renal failure) with tubular necrosis Current Visit: No Status: Acute Plan to address problem: Management as per nephrology. (3) Atrial fibrillation with RVR Current Visit: No Status: Acute Plan to address problem: Management as per cardiology. Patient is on Apixaban. (4) CHF (congestive heart failure) Current Visit: No Status: Acute Qualifiers: Heart failure type: systolic Heart failure chronicity: acute Qualified Code(s): I50.21 - Acute systolic (congestive) heart failure Plan to address problem: Mangemet as per cardiology. (5) COPD exacerbation Current Visit: No Status: Acute Plan to address problem: Patient decanulated. O2 2 litres via nasal canula. Brovanna/Budesonide aerosol treatments q 12 hours. Xopenx aerosol treatments q 8 hours prn for shortness of breath. Patient is on Apixaban. Continue famotidine Continue physical therapy. Subjective Date of service: 09/19/18 Principal diagnosis: Acute on Chronic Hypoxemic Respiratory failure; AE-COPD; s/p trachesotomy Interval history: Patient awake and well oriented.. Patient is De canulated .Tolerating de canulation good. Patient is on 2 litres O2.O2 saturation 93%. No acute respiratory distress. Objective Vital Signs - 12hr 09/19/18 09/19/18 09/19/18 08:18 08:23 08:33 Temperature 97.5 F L Pulse Rate 97 H Pulse Rate [ 95 H 96 H Bilateral Throughout] Respiratory 18 Rate Respiratory 18 18 Rate [Bilateral Throughout] Blood Pressure 134/71 [Left] O2 Sat by Pulse 94 Oximetry 09/19/18 09/19/18 09/19/18 08:49 15:05 15:20 Temperature Pulse Rate Pulse Rate [ 78 82 Bilateral Throughout] Respiratory Rate Respiratory 20 20 Rate [Bilateral Throughout] Blood Pressure [Left] O2 Sat by Pulse 93 Oximetry Constitutional: no acute distress, alert Eyes: non-icteric ENT: oropharynx moist Neck: supple, no JVD, other (Tracheostomy and trach tube is capped.) Effort: normal Ascultation: Bilateral: diminished breath sounds, rhonchi (scant) Percussion: Bilateral: not dull Cardiovascular: regular rate and rhythm Gastrointestinal: normoactive bowel sounds, soft, non-tender, non-distended Integumentary: normal Extremities: no cyanosis, no edema, pink and warm, pulses normal, no ischemia or petechiae Neurologic: normal mental status, non-focal exam, pupils equal and round, CN II- XII normal Psychiatric: mood appropriate, affect normal CBC and BMP: 09/15/18 04:50 09/15/18 04:50 ABG, PT/INR, D-dimer: ABG POC ABG pH 7.417 (7.35-7.45) 09/01/18 11:52 POC ABG pCO2 50.7 (35-45) H 09/01/18 11:52 POC ABG pO2 53 (80-105) L 09/01/18 11:52 POC ABG HCO3 32.6 09/01/18 11:52 POC ABG Total CO2 34 09/01/18 11:52 POC ABG O2 Sat 87 09/01/18 11:52 Abnormal lab findings: Abnormal Labs 08/31/18 08/31/18 08/31/18 06:31 12:50 16:31 RBC Hgb Hct MCV MCH RDW [place] % (Auto) Eos % (Auto) POC ABG pCO2 POC ABG pO2 Chloride Carbon Dioxide Creatinine Glucose POC Glucose 129 H 144 H Hemoglobin A1c 6.9 H Vitamin B12 08/31/18 08/31/18 09/01/18 17:10 22:17 01:54 RBC Hgb Hct MCV MCH RDW [place] % (Auto) Eos % (Auto) POC ABG pCO2 POC ABG pO2 Chloride Carbon Dioxide Creatinine Glucose POC Glucose 133 H 140 H 133 H Hemoglobin A1c Vitamin B12 09/01/18 09/01/18 09/01/18 04:28 04:28 06:18 RBC 3.41 L Hgb 11.3 L Hct 34.7 L MCV 102 H MCH 33 H RDW 18.2 H [place] % (Auto) Eos % (Auto) POC ABG pCO2 POC ABG pO2 Chloride 94.8 L Carbon Dioxide 33 H Creatinine 0.5 L Glucose 130 H POC Glucose 130 H Hemoglobin A1c Vitamin B12 09/01/18 09/01/18 09/01/18 11:52 14:24 16:37 RBC Hgb Hct MCV MCH RDW [place] % (Auto) Eos % (Auto) POC ABG pCO2 50.7 H POC ABG pO2 53 L Chloride Carbon Dioxide Creatinine Glucose POC Glucose 168 H 142 H Hemoglobin A1c Vitamin B12 09/01/18 09/02/18 09/02/18 23:40 06:48 11:41 RBC Hgb Hct MCV MCH RDW [place] % (Auto) Eos % (Auto) POC ABG pCO2 POC ABG pO2 Chloride Carbon Dioxide Creatinine Glucose POC Glucose 129 H 135 H 144 H Hemoglobin A1c Vitamin B12 09/02/18 09/03/18 09/03/18 17:29 00:11 05:56 RBC Hgb Hct MCV MCH RDW [place] % (Auto) Eos % (Auto) POC ABG pCO2 POC ABG pO2 Chloride Carbon Dioxide Creatinine Glucose POC Glucose 114 H 143 H 161 H Hemoglobin A1c Vitamin B12 09/03/18 09/03/18 09/03/18 11:25 17:25 22:47 RBC Hgb Hct MCV MCH RDW [place] % (Auto) Eos % (Auto) POC ABG pCO2 POC ABG pO2 Chloride Carbon Dioxide Creatinine Glucose POC Glucose 125 H 125 H 112 H Hemoglobin A1c Vitamin B12 09/04/18 09/04/18 09/04/18 11:02 17:43 22:23 RBC Hgb Hct MCV MCH RDW [place] % (Auto) Eos % (Auto) POC ABG pCO2 POC ABG pO2 Chloride Carbon Dioxide Creatinine Glucose POC Glucose 143 H 169 H 114 H Hemoglobin A1c Vitamin B12 09/05/18 09/05/18 09/06/18 11:29 17:56 01:08 RBC Hgb Hct MCV MCH RDW [place] % (Auto) Eos % (Auto) POC ABG pCO2 POC ABG pO2 Chloride Carbon Dioxide Creatinine Glucose POC Glucose 130 H 137 H 108 H Hemoglobin A1c Vitamin B12 09/07/18 09/07/18 09/07/18 06:40 06:40 22:22 RBC 3.41 L Hgb 11.2 L Hct 34.8 L MCV 102 H MCH 33 H RDW 18.9 H [place] % (Auto) Eos % (Auto) POC ABG pCO2 POC ABG pO2 Chloride Carbon Dioxide Creatinine 0.6 L Glucose 105 H POC Glucose 113 H Hemoglobin A1c Vitamin B12 09/08/18 09/08/18 09/08/18 11:59 17:23 22:12 RBC Hgb Hct MCV MCH RDW [place] % (Auto) Eos % (Auto) POC ABG pCO2 POC ABG pO2 Chloride Carbon Dioxide Creatinine Glucose POC Glucose 141 H 127 H 111 H Hemoglobin A1c Vitamin B12 09/09/18 09/09/18 09/09/18 12:23 17:14 23:01 RBC Hgb Hct MCV MCH RDW [place] % (Auto) Eos % (Auto) POC ABG pCO2 POC ABG pO2 Chloride Carbon Dioxide Creatinine Glucose POC Glucose 113 H 114 H 122 H Hemoglobin A1c Vitamin B12 09/10/18 09/10/18 09/10/18 12:22 16:53 23:30 RBC Hgb Hct MCV MCH RDW [place] % (Auto) Eos % (Auto) POC ABG pCO2 POC ABG pO2 Chloride Carbon Dioxide Creatinine Glucose POC Glucose 146 H 118 H 140 H Hemoglobin A1c Vitamin B12 09/11/18 09/11/18 09/11/18 06:21 16:30 21:57 RBC Hgb Hct MCV MCH RDW [place] % (Auto) Eos % (Auto) POC ABG pCO2 POC ABG pO2 Chloride Carbon Dioxide Creatinine Glucose POC Glucose 106 H 124 H 121 H Hemoglobin A1c Vitamin B12 09/12/18 09/12/18 09/13/18 12:53 16:38 12:27 RBC Hgb Hct MCV MCH RDW [place] % (Auto) Eos % (Auto) POC ABG pCO2 POC ABG pO2 Chloride Carbon Dioxide Creatinine Glucose POC Glucose 108 H 114 H 132 H Hemoglobin A1c Vitamin B12 09/13/18 09/13/18 09/14/18 16:24 22:25 18:45 RBC Hgb Hct MCV MCH RDW [place] % (Auto) Eos % (Auto) POC ABG pCO2 POC ABG pO2 Chloride Carbon Dioxide Creatinine Glucose POC Glucose 130 H 114 H 122 H Hemoglobin A1c Vitamin B12 09/14/18 09/15/18 09/15/18 21:52 04:50 04:50 RBC 2.95 L Hgb 9.7 L Hct 29.7 L MCV 101 H MCH 33 H RDW 18.2 H [place] % (Auto) 8.5 H Eos % (Auto) 5.6 H POC ABG pCO2 POC ABG pO2 Chloride Carbon Dioxide 31 H Creatinine 0.6 L Glucose 102 H POC Glucose 115 H Hemoglobin A1c Vitamin B12 09/15/18 09/15/18 09/15/18 16:22 16:24 22:40 RBC Hgb Hct MCV MCH RDW [place] % (Auto) Eos % (Auto) POC ABG pCO2 POC ABG pO2 Chloride Carbon Dioxide Creatinine Glucose POC Glucose 110 H 132 H Hemoglobin A1c Vitamin B12 1839 H 09/16/18 09/16/18 09/17/18 17:46 21:59 11:27 RBC Hgb Hct MCV MCH RDW [place] % (Auto) Eos % (Auto) POC ABG pCO2 POC ABG pO2 Chloride Carbon Dioxide Creatinine Glucose POC Glucose 127 H 106 H 133 H Hemoglobin A1c Vitamin B12 Allied health notes reviewed: PT
[2018-09-20] MEDS: PULMICORT IH SCH ×2 (06:55→08:52)
[2018-09-20] MEDS: XOPENEX IH SCH ×2 (06:55→08:52)
[2018-09-20] MEDS: BROVANA NEBU IH SCH ×2 (06:55→08:52)
[2018-09-20] MEDS: TYLENOL FEEDTUBE PRN (07:05)
[2018-09-20 07:46] VITALS: BP 130/78
[2018-09-20] MEDS: CORDARONE FEEDTUBE SCH ×2 (08:30→10:40)
[2018-09-20] MEDS: FLOMAX PO SCH (08:30)
[2018-09-20] MEDS: VITAMIN B-12 FEEDTUBE SCH (08:30)
[2018-09-20] MEDS: ELIQUIS FEEDTUBE SCH ×2 (08:30→10:42)
[2018-09-20] MEDS: MIRALAX 3350 PO SCH (08:30)
[2018-09-20] MEDS: PEPCID FEEDTUBE SCH (08:30)
[2018-09-20] MEDS: PRAVACHOL FEEDTUBE SCH ×2 (08:31→10:43)
--- NOTE | 2018-09-20 09:10 | Progress Note ---
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 After evaluation by his paper gluing operator he was admitted to [facility]. He was found to have atrial fibrillation with RVR, which was refractory to Cardizem drip but improved with amiodarone drip. He developed an acute hypoxemic respiratory failure and was admitted to the ICU and intubated. Patient had a complicated course which included the need for trach/PEG. He developed sepsis and pneumonia which were treated with antibiotics. Zuniga was inserted by by vt 08-05-18 due to obstructive uropathy and a urethral stricture. He remains on trach with blow by O2. After he was stabilized he was transferred for further rehab on 08/30/2018. up in chair zuniga clear urine abd soft A/P retention BPH Stricture phimosis --dc zuniga now --reinsert if can't urinate by 3pm --continue flomax 1qd Objective - Constitutional Vitals: Vital Signs - 12hr 09/19/18 09/20/18 09/20/18 21:33 07:44 08:45 Temperature 97.9 F 98.1 F Pulse Rate 78 89 Pulse Rate [ 84 Bilateral Throughout] Respiratory 18 22 Rate Respiratory 18 Rate [Bilateral Throughout] Blood Pressure 128/78 Blood Pressure 130/78 [Left] O2 Sat by Pulse 90 94 Oximetry 09/20/18 09/20/18 08:54 08:55 Temperature Pulse Rate Pulse Rate [ 84 Bilateral Throughout] Respiratory Rate Respiratory 18 Rate [Bilateral Throughout] Blood Pressure Blood Pressure [Left] O2 Sat by Pulse 94 Oximetry - Labs CBC & Chem 7: 09/15/18 04:50 09/15/18 04:50 Medications & Allergies - Medications Allergies/Adverse Reactions: Allergies No Known Allergies Allergy (Verified 12/12/13 06:46) Home Medications: Home Medications Medication Instructions Recorded Confirmed Last Taken Type Pravastatin Sodium 40 mg PO DAILY 12/12/13 09/14/18 07/27/18 History Fluticasone/Salmeterol [Advair 1 puff IH BID 12/31/15 09/14/18 07/27/18 History Diskus 250-50 mcg] ALBUTEROL Inhaler (OR & NICU) 2 puff IH QID PRN 07/27/18 09/14/18 Unknown History [ProAir HFA Inhaler] Aspirin [Aspirin BABY CHEW TAB] 81 mg PO DAILY 07/27/18 09/14/18 07/27/18 History Cyanocobalamin (Vitamin B-12) 2,500 mcg PO DAILY 07/27/18 09/14/18 07/27/18 History [Vitamin B12] [place]-3S/Dha/Epa/Fish Oil/D3 [Fish 1 each PO DAILY 07/27/18 09/14/18 07/27/18 History Zka-[id number]-Vit D Softgel] Amiodarone [Cordarone 200 MG TAB] 200 mg PO BID tablet 08/30/18 09/14/18 Unknown Rx Apixaban [Eliquis] 5 mg PO Q12HR tablet 08/30/18 09/14/18 Unknown Rx Arformoterol Nebu [Brovana Nebu] 15 mcg IH Q12HRT ml 08/30/18 09/14/18 Unknown Rx Budesonide [Pulmicort Respules] 0.5 mg IH Q12HRT nebu 08/30/18 09/14/18 Unknown Rx Cyanocobalamin [Vitamin B-12] 2,500 mcg PO QDAY tablet 08/30/18 09/14/18 Unknown Rx Famotidine [Pepcid] 20 mg PO BID tablet 08/30/18 09/14/18 Unknown Rx Insulin Glargine [Lantus VIAL] 20 units SUB-Q QHS units 08/30/18 09/14/18 Unknown Rx Lipase/Protease/Amylase [Pancreaze 1 each FEEDTUBE PRN PRN capsule 08/30/18 09/14/[address] 10,500 Unit] Lispro Insulin [Humalog] 0 unit SUB-Q Q8HR units 08/30/18 09/14/18 Unknown Rx Min Oil/Petrolatum [Artificial 1 applic OU Q4HR PRN tube 08/30/18 09/14/18 Unknown Rx Tears Ophth Oint] Petrolatum,White [Vaseline Lip 1 applic TP Q2HR PRN tube 08/30/18 09/14/18 Unknown Rx Therapy] Quetiapine Fumarate [Seroquel] 100 mg PO HS #30 tablet 08/30/18 09/14/18 Unknown Rx Active Medications: Generic Name Dose Route Start Last Admin Trade Name Freq PRN Reason Stop Dose Admin Acetaminophen 650 mg 08/31/18 11:14 09/20/18 07:05 Tylenol FEEDTUBE 650 mg Q6H PRN Administration Pain, Mild (1-3) Amiodarone HCl 200 mg 09/07/18 10:00 09/20/18 08:30 Cordarone FEEDTUBE 200 mg DAILY IGNACIO Administration Lipase/Protease/Amylase 1 each 08/31/18 11:[address] 10,500 Unit FEEDTUBE PRN PRN For Clogged Feeding Tube Apixaban 5 mg 08/30/18 22:00 09/20/18 08:30 Eliquis FEEDTUBE 5 mg Q12HR IGNACIO Administration Protocol Arformoterol Tartrate 15 mcg 08/30/18 20:00 09/20/18 08:52 Brovana Nebu IH 15 mcg Q12HRT IGNACIO Administration Bisacodyl 10 mg 09/16/18 18:47 Dulcolax ID QDAY PRN Constipation Budesonide 0.5 mg 08/30/18 20:00 09/20/18 08:52 Pulmicort IH 0.5 mg Q12HRT IGNACIO Administration Cyanocobalamin 2,000 mcg 08/31/18 10:00 09/20/18 08:30 Vitamin B-12 FEEDTUBE 2,000 mcg QDAY IGNACIO Administration Famotidine 20 mg 08/30/18 22:00 09/20/18 08:30 Pepcid FEEDTUBE 20 mg BID IGNACIO Administration Hydrophilic Ointment 1 applic 08/30/18 16:54 Vaseline Lip Therapy TP Q2HR PRN Dry Lips Levalbuterol HCl 0.63 mg 09/20/18 14:00 Xopenex IH TIDRT IGNACIO Multi-Ingred Cream/Lotion/Oil/Oint 1 applic 08/30/18 16:54 Artificial Tears Ophth Oint OU Q4HR PRN Dry Eye(s) Polyethylene Glycol 17 gm 09/16/18 20:00 09/20/18 08:30 Miralax 3350 PO 17 gm QDAY IGNACIO Administration Pravastatin Sodium 40 mg 08/31/18 10:00 09/20/18 08:31 Pravachol FEEDTUBE 40 mg DAILY IGNACIO Administration Quetiapine Fumarate 100 mg 08/30/18 22:00 09/19/18 21:39 Seroquel FEEDTUBE 100 mg HS IGNACIO Administration Sodium Bicarbonate 325 mg 08/31/18 11:55 Sodium Bicarbonate FEEDTUBE PRN PRN For Clogged Feeding Tube Tamsulosin HCl 0.4 mg 09/15/18 08:00 09/20/18 08:30 Flomax PO 0.4 mg QDAY@0800 IGNACIO Administration
[2018-09-20] MEDS ORDERED: XOPENEX IH SCH (14:00)
[2018-09-20] MEDS ORDERED: XOPENEX IH PRN (14:03)
--- NOTE | 2018-09-20 14:39 | Progress Note ---
Assessment and Plan Patient awake and sitting up in chair. On 2 litres o2. O2 saturation 94%. No acute respiratory distress. Patient going home to day. Patient already has home Oxygen.Patient going to follow with Dr. BEE for pulmonary problems. - Patient Problems (1) Acute respiratory failure Current Visit: No Status: Acute Qualifiers: Respiratory failure complication: hypoxia Qualified Code(s): J96.01 - Acute respiratory failure with hypoxia Plan to address problem: Patient de canulated. O2 2 litres via nasal canula. Brovanna/Budesonide aerosol treatments q 12 hours. Xopenx aerosol treatments q 8 hours prn for shortness of breath. Patient is on Apixaban. Continue famotidine. (2) ARF (acute renal failure) with tubular necrosis Current Visit: No Status: Acute Plan to address problem: Management as per nephrology. (3) Atrial fibrillation with RVR Current Visit: No Status: Acute Plan to address problem: Management as per cardiology. Patient is on Apixaban. (4) CHF (congestive heart failure) Current Visit: No Status: Acute Qualifiers: Heart failure type: systolic Heart failure chronicity: acute Qualified Code(s): I50.21 - Acute systolic (congestive) heart failure Plan to address problem: Mangemet as per cardiology. (5) COPD exacerbation Current Visit: No Status: Acute Plan to address problem: Patient decanulated. O2 2 litres via nasal canula. Brovanna/Budesonide aerosol treatments q 12 hours. Xopenx aerosol treatments q 8 hours prn for shortness of breath. Patient is on Apixaban. Continue famotidine Continue physical therapy. Subjective Date of service: 09/20/18 Principal diagnosis: Acute on Chronic Hypoxemic Respiratory failure; AE-COPD; s/p trachesotomy Interval history: Patient awake and sitting up in chair. On 2 litres o2. O2 saturation 94%. No acute respiratory distress. Patient going home to day. Patient already has home Oxygen.Patient going to follow with Dr. BEE for pulmonary problems. Objective Vital Signs - 12hr 09/20/18 09/20/18 09/20/18 07:44 08:45 08:54 Temperature 98.1 F Pulse Rate 89 Pulse Rate [ 84 84 Bilateral Throughout] Respiratory 22 Rate Respiratory 18 18 Rate [Bilateral Throughout] Blood Pressure 130/78 [Left] O2 Sat by Pulse 94 Oximetry 09/20/18 08:55 Temperature Pulse Rate Pulse Rate [ Bilateral Throughout] Respiratory Rate Respiratory Rate [Bilateral Throughout] Blood Pressure [Left] O2 Sat by Pulse 94 Oximetry Constitutional: no acute distress, alert Eyes: non-icteric ENT: oropharynx moist Neck: supple, no JVD, other (Tracheostomy and trach tube is capped.) Effort: normal Ascultation: Bilateral: diminished breath sounds Percussion: Bilateral: not dull Cardiovascular: regular rate and rhythm Gastrointestinal: normoactive bowel sounds, soft, non-tender, non-distended Integumentary: normal Extremities: no cyanosis, no edema, pink and warm, pulses normal, no ischemia or petechiae Neurologic: normal mental status, non-focal exam, pupils equal and round, CN II- XII normal Psychiatric: mood appropriate, affect normal CBC and BMP: 09/15/18 04:50 09/15/18 04:50 ABG, PT/INR, D-dimer: ABG POC ABG pH 7.417 (7.35-7.45) 09/01/18 11:52 POC ABG pCO2 50.7 (35-45) H 09/01/18 11:52 POC ABG pO2 53 (80-105) L 09/01/18 11:52 POC ABG HCO3 32.6 09/01/18 11:52 POC ABG Total CO2 34 09/01/18 11:52 POC ABG O2 Sat 87 09/01/18 11:52 Abnormal lab findings: Abnormal Labs 08/31/18 08/31/18 08/31/18 06:31 12:50 16:31 RBC Hgb Hct MCV MCH RDW Curry % (Auto) Eos % (Auto) POC ABG pCO2 POC ABG pO2 Chloride Carbon Dioxide Creatinine Glucose POC Glucose 129 H 144 H Hemoglobin A1c 6.9 H Vitamin B12 08/31/18 08/31/18 09/01/18 17:10 22:17 01:54 RBC Hgb Hct MCV MCH RDW Curry % (Auto) Eos % (Auto) POC ABG pCO2 POC ABG pO2 Chloride Carbon Dioxide Creatinine Glucose POC Glucose 133 H 140 H 133 H Hemoglobin A1c Vitamin B12 09/01/18 09/01/18 09/01/18 04:28 04:28 06:18 RBC 3.41 L Hgb 11.3 L Hct 34.7 L MCV 102 H MCH 33 H RDW 18.2 H Curry % (Auto) Eos % (Auto) POC ABG pCO2 POC ABG pO2 Chloride 94.8 L Carbon Dioxide 33 H Creatinine 0.5 L Glucose 130 H POC Glucose 130 H Hemoglobin A1c Vitamin B12 09/01/18 09/01/18 09/01/18 11:52 14:24 16:37 RBC Hgb Hct MCV MCH RDW Curry % (Auto) Eos % (Auto) POC ABG pCO2 50.7 H POC ABG pO2 53 L Chloride Carbon Dioxide Creatinine Glucose POC Glucose 168 H 142 H Hemoglobin A1c Vitamin B12 09/01/18 09/02/18 09/02/18 23:40 06:48 11:41 RBC Hgb Hct MCV MCH RDW Curry % (Auto) Eos % (Auto) POC ABG pCO2 POC ABG pO2 Chloride Carbon Dioxide Creatinine Glucose POC Glucose 129 H 135 H 144 H Hemoglobin A1c Vitamin B12 09/02/18 09/03/18 09/03/18 17:29 00:11 05:56 RBC Hgb Hct MCV MCH RDW Curry % (Auto) Eos % (Auto) POC ABG pCO2 POC ABG pO2 Chloride Carbon Dioxide Creatinine Glucose POC Glucose 114 H 143 H 161 H Hemoglobin A1c Vitamin B12 09/03/18 09/03/18 09/03/18 11:25 17:25 22:47 RBC Hgb Hct MCV MCH RDW Curry % (Auto) Eos % (Auto) POC ABG pCO2 POC ABG pO2 Chloride Carbon Dioxide Creatinine Glucose POC Glucose 125 H 125 H 112 H Hemoglobin A1c Vitamin B12 09/04/18 09/04/18 09/04/18 11:02 17:43 22:23 RBC Hgb Hct MCV MCH RDW Curry % (Auto) Eos % (Auto) POC ABG pCO2 POC ABG pO2 Chloride Carbon Dioxide Creatinine Glucose POC Glucose 143 H 169 H 114 H Hemoglobin A1c Vitamin B12 09/05/18 09/05/18 09/06/18 11:29 17:56 01:08 RBC Hgb Hct MCV MCH RDW Curry % (Auto) Eos % (Auto) POC ABG pCO2 POC ABG pO2 Chloride Carbon Dioxide Creatinine Glucose POC Glucose 130 H 137 H 108 H Hemoglobin A1c Vitamin B12 09/07/18 09/07/18 09/07/18 06:40 06:40 22:22 RBC 3.41 L Hgb 11.2 L Hct 34.8 L MCV 102 H MCH 33 H RDW 18.9 H Curry % (Auto) Eos % (Auto) POC ABG pCO2 POC ABG pO2 Chloride Carbon Dioxide Creatinine 0.6 L Glucose 105 H POC Glucose 113 H Hemoglobin A1c Vitamin B12 09/08/18 09/08/18 09/08/18 11:59 17:23 22:12 RBC Hgb Hct MCV MCH RDW Curry % (Auto) Eos % (Auto) POC ABG pCO2 POC ABG pO2 Chloride Carbon Dioxide Creatinine Glucose POC Glucose 141 H 127 H 111 H Hemoglobin A1c Vitamin B12 09/09/18 09/09/18 09/09/18 12:23 17:14 23:01 RBC Hgb Hct MCV MCH RDW Curry % (Auto) Eos % (Auto) POC ABG pCO2 POC ABG pO2 Chloride Carbon Dioxide Creatinine Glucose POC Glucose 113 H 114 H 122 H Hemoglobin A1c Vitamin B12 09/10/18 09/10/18 09/10/18 12:22 16:53 23:30 RBC Hgb Hct MCV MCH RDW Curry % (Auto) Eos % (Auto) POC ABG pCO2 POC ABG pO2 Chloride Carbon Dioxide Creatinine Glucose POC Glucose 146 H 118 H 140 H Hemoglobin A1c Vitamin B12 09/11/18 09/11/18 09/11/18 06:21 16:30 21:57 RBC Hgb Hct MCV MCH RDW Curry % (Auto) Eos % (Auto) POC ABG pCO2 POC ABG pO2 Chloride Carbon Dioxide Creatinine Glucose POC Glucose 106 H 124 H 121 H Hemoglobin A1c Vitamin B12 09/12/18 09/12/18 09/13/18 12:53 16:38 12:27 RBC Hgb Hct MCV MCH RDW Curry % (Auto) Eos % (Auto) POC ABG pCO2 POC ABG pO2 Chloride Carbon Dioxide Creatinine Glucose POC Glucose 108 H 114 H 132 H Hemoglobin A1c Vitamin B12 09/13/18 09/13/18 09/14/18 16:24 22:25 18:45 RBC Hgb Hct MCV MCH RDW Curry % (Auto) Eos % (Auto) POC ABG pCO2 POC ABG pO2 Chloride Carbon Dioxide Creatinine Glucose POC Glucose 130 H 114 H 122 H Hemoglobin A1c Vitamin B12 09/14/18 09/15/18 09/15/18 21:52 04:50 04:50 RBC 2.95 L Hgb 9.7 L Hct 29.7 L MCV 101 H MCH 33 H RDW 18.2 H Curry % (Auto) 8.5 H Eos % (Auto) 5.6 H POC ABG pCO2 POC ABG pO2 Chloride Carbon Dioxide 31 H Creatinine 0.6 L Glucose 102 H POC Glucose 115 H Hemoglobin A1c Vitamin B12 09/15/18 09/15/18 09/15/18 16:22 16:24 22:40 RBC Hgb Hct MCV MCH RDW Curry % (Auto) Eos % (Auto) POC ABG pCO2 POC ABG pO2 Chloride Carbon Dioxide Creatinine Glucose POC Glucose 110 H 132 H Hemoglobin A1c Vitamin B12 1839 H 09/16/18 09/16/18 09/17/18 17:46 21:59 11:27 RBC Hgb Hct MCV MCH RDW Curry % (Auto) Eos % (Auto) POC ABG pCO2 POC ABG pO2 Chloride Carbon Dioxide Creatinine Glucose POC Glucose 127 H 106 H 133 H Hemoglobin A1c Vitamin B12 Allied health notes reviewed: PT
--- NOTE | 2018-09-20 14:54 | Discharge Summary ---
Providers - Providers Date of Admission: 08/30/18 16:24 Date of discharge: 09/20/18 Attending physician: DIOMEDES JOINER III, MD 08/30/18 16:23 Consult to Dietitian/Nutrition [CONS] Routine Physician Instructions: Reason For Exam: Reason for Consult: Write/Manage Tube Feeding Consult to Physician [CONS] Routine Comment: CONSULT COMPLETED Consulting Provider: DAVID HILLIARD Physician Instructions: Reason For Exam: Medical Management Occupational Therapy Evaluate and Treat [CONS] Routine Comment: Reason For Exam: Eval and treat for ADL dysfunction Physical Therapy Evaluation and Treat [CONS] Routine Comment: Reason For Exam: Eval and treat fro mobility dysfunction 08/30/18 16:36 Consult to Case Management [CONS] Routine Services Needed at Discharge: Home Health Services DME Equipment Home O2 Notified:: GAMBLING CASHIER 08/30/18 16:44 Consult to Dietitian/Nutrition [CONS] Routine Physician Instructions: Assess nutrtn needs, initiate, modify, manage TF Reason For Exam: Reason for Consult: Write/Manage Tube Feeding Reason for Consult: Write/Manage Tube Feeding 08/31/18 09:42 Consult to Physician [CONS] Routine Comment: Consulting Provider: ELIZA KENNEDY Physician Instructions: Reason For Exam: tracheostomy and pulmonary management 09/01/18 16:03 Speech Therapy Evaluation and Treat [CONS] Routine Reason For Exam: Eval & Treat for swallow eval 09/12/18 13:12 Consult to Physician [CONS] Routine Comment: Consulting Provider: JOMAR LOCKWOOD Physician Instructions: Please eval for possible Osborne d/c Reason For Exam: Osborne/stricture Primary care physician: DIRECTOR PROCESS Hospitalization Reason for admission: Debility due to Afib and acute hypoxemic respiratory failure Condition: Fair Pertinent studies: 08/30/2018 MBSS - no aspiration or penetration noted Procedures: Prior to admission for rehabilitation the patient: - Had a Osborne placed by Dr. Lockwood and underwent a cystogram on 08/05/2018. Osborne has since been removed and the patient has been able to urinate multiple times prior to discharge. - Had a PEG tube placed on 08/10/[address] Lakisha Stewart. The PEG tube should remain in place for between 6-8 weeks prior to removal and this has been communicated with the patient and family. He can have the PEG tube removed at his PCPs office, by the inserting surgeon, or possibly at the ER. - Had a tracheostomy placed by Dr. Alaina Palacio. This has subsequently been removed and the trach stoma is healing well. Hospital course: 73-year-old male who experienced two days of shortness of breath and palpitations prior to reporting to the his pharmacovigilance safety expert. After evaluation by his pharmacovigilance safety expert he was admitted to [facility]. He was found to have atrial fibrillation with RVR, which was refractory to Cardizem drip but improved with amiodarone drip. He developed an acute hypoxemic respiratory failure and was admitted to the ICU and intubated. Patient had a complicated course which included the need for trach/PEG. He developed sepsis and pneumonia which were treated with antibiotics. Osborne was inserted by urology due to obstructive uropathy and a urethral stricture and is to remain in place. He remains on trach with blow by O2. He progressed well with therapy and is able to perform most tasks with very little issue and slight loss of balance. His trach was downsized until he could be decannulated. He remains on supplemental oxygen by nasal cannula which she was on prior to admission. As stated above PEG tube will need to remain in place until it is been in for 6-8 weeks at which point he can then be removed safely. After his first Osborne removal he was unable to urinate and was placed on Flomax for several days prior to a second removal at this point was able to urinate without problem. He'll need a follow- up with pulmonology and he states that he is currently looking for a new PCP and I will try giving them several names to refer to. There was questionable consideration of heart failure early in his stay however upon speaking with cardiology and they're review of his testing it was determined that he does not have heart failure. At that time they also confirmed the ability to decrease amiodarone to once daily dosing. He will need to either follow up with his primary care physician or a pharmacovigilance safety expert for further management of atrial fibrillation. He'll need to recheck his hemoglobin A1c which was a little high during this admission but could have been elevated due to his condition and tube feeds. His blood sugar since starting on regular food has been in the normal range. Blood pressures also been a normal range without medications since being on the rehabilitation floor. Follow-up with PCP would be advised for monitoring going forward. Disposition: DC-01 TO HOME OR SELFCARE Time spent for discharge: >30 mins 19 minutes face to face counseling and coordinating care - Discharge Diagnoses (1) Debility Status: Acute (2) COPD (chronic obstructive pulmonary disease) Status: Chronic (3) Hyperlipemia Status: Chronic Qualifiers: Hyperlipidemia type: Mixed hyperlipidemia (4) Hypertension Status: Chronic Qualifiers: Hypertension type: essential hypertension Qualified Code(s): I10 - Essential (primary) hypertension (5) Atrial fibrillation Status: Resolved Qualifiers: Atrial fibrillation type: persistent Qualified Code(s): I48.1 - Persistent atrial fibrillation Core Measure Documentation - Palliative Care Palliative Care/ Comfort Measures: Not Applicable - Core Measures Any of the following diagnoses?: none Exam - Physical Exam Narrative exam: MUSCULOSKELETAL SPECIALTY EXAM Constitutional: Well developed, well nourished, appropriately groomed EENT: EOMI. Trach stoma covered. Hearing intact to voice. Vocal quality improved Respiratory: Clear to ascultation bilaterally, decreased at bases, no increased work of breathing, on NC. Cardiovascular Regular Rate/ Rhythm, no swelling edema or tenderness in all 4 extremities. All 4 extremities warm. GI : + bowel sounds, soft, NTTP, nondistended, PEG : Osborne d/c'd and has urinated several times INTEGUMENTARY: Normal in all 4 extremities, scars on LE Musuloskeletal: BUE and BLE normal without defect, crepitus, sublux, effusion, or TTP. BUE and BLE 4-/5, adequate ROM with normal tone. NEURO: CN 2-12 grossly intact. Sensation intact in all extremities. No tremor noted. POSTURE and GAIT: Posture good, gait slow with occ LOB but improved PSYCH: Alert, orientated x3, affect appears normal. Insight appears intact. - Constitutional Vitals: Temp Pulse Resp BP Pulse Ox 36.7 C 84 18 130/78 94 09/20/18 07:44 09/20/18 08:54 09/20/18 08:54 09/20/18 07:44 09/20/18 08:55 - Allied Health Allied health notes reviewed: nursing, PT, OT, RT Plan Activity: advance as tolerated, fall precautions Weight Bearing Status: Full Weight Bearing Diet: regular Wound: change dressing (daily until trach stoma is healed) Special Instructions: follow up in rehab, other (follow up to remove PEG in 6-8 wks from insertion date of 08/10/2018 (PCP, ER, or with Dr Lakisha Stewart)) Durable Medical Equipment Needed Upon Discharge: Cane, Oxygen (2L NC previously, continue) Follow up with: PRIMARY CAREMD [Primary Care Provider] - 7 Days MARGE BEE MD [Referring] - 7 Days Prescriptions: Amiodarone [Cordarone 200 MG TAB] 200 mg PO DAILY #30 tablet Apixaban [Eliquis] 5 mg PO Q12HR #60 tablet Arformoterol Nebu [Brovana Nebu] 15 mcg IH Q12HRT 30 Days #30 ml Budesonide [Pulmicort Respules] 0.5 mg IH Q12HRT 30 Days nebu Famotidine [Pepcid] 20 mg PO BID #60 tablet Polyethylene Glycol 3350 [Miralax 3350] 17 gm PO QDAY 30 Days powd.pack Pravastatin [Pravachol] 40 mg PO HS #30 tablet Quetiapine Fumarate [Seroquel] 100 mg PO HS #30 tablet Tamsulosin [Flomax] 0.4 mg PO QDAY@0800 #30 capsule Levalbuterol [Xopenex] 0.63 mg IH TIDRT 30 Days nebu Other Discharge Orders: Occupational Therapy (Amb) Location: None Selected Physicial Therapy (Amb) Location: None Selected
== END 2018-09-20 15:50 | disposition home or self-care (01) | DRG 189 ==
LOC: 3A 15:26 → UNDOADMIN 15:26 → 3B 16:24
PROVIDERS: ADMIT Physical Medicine & Rehabilitation; ATTEND Physical Medicine & Rehabilitation
PROC: BD15YZZ Fluoroscopy of Upper GI using Other Contrast (ICD-10-PCS; principal; 2018-09-16)
DX: J96.21 Acute and chronic respiratory failure with hypoxia (principal); J44.1 Chronic obstructive pulmonary disease with (acute) exacerbation; R53.81 Other malaise; R26.2 Difficulty in walking, not elsewhere classified; I48.91 Unspecified atrial fibrillation; M62.81 Muscle weakness (generalized); R26.89 Other abnormalities of gait and mobility; I11.0 Hypertensive heart disease with heart failure; N40.0 Benign prostatic hyperplasia without lower urinary tract symptoms; E78.5 Hyperlipidemia, unspecified; R13.10 Dysphagia, unspecified; G40.909 Epilepsy, unspecified, not intractable, without status epilepticus; E11.51 Type 2 diabetes mellitus with diabetic peripheral angiopathy without gangrene; Z85.9 Personal history of malignant neoplasm, unspecified; Z83.3 Family history of diabetes mellitus; Z82.3 Family history of stroke; Z80.9 Family history of malignant neoplasm, unspecified; Z93.0 Tracheostomy status; Z99.81 Dependence on supplemental oxygen; Z87.891 Personal history of nicotine dependence
CPT/HCPCS: 36415; 36600; 71046; 74230; 80048; 82607; 82747; 82803; 82962; 83036; 83550; 85025; 85027; 94640; 94760; G0378; A9270-GY; J1815

== ENCOUNTER 2018-12-07 15:10 | Outpatient (CLI) | payer BC, MEDICARE ==
[2018-12-07 15:41] LABS: Bacteria,Urine 1+ /HPF (Negative); Bilirubin,Urine NEG (Negative); Blood,Urine NEG (Negative); Color,Urine Yellow (Yellow); Mucus,Urine FEW /HPF; Protein,Urine <15 mg/dL mg/dL (Negative); Urobilinogen,Urine < 2.0 mg/dL (<2.0)
== END 2018-12-07 15:11 | disposition home or self-care (01) ==
LOC: LAB 15:10
PROVIDERS: ATTEND Internal Medicine
DX: N39.0 Urinary tract infection, site not specified (principal); I11.0 Hypertensive heart disease with heart failure; I50.9 Heart failure, unspecified; I73.9 Peripheral vascular disease, unspecified; E78.00 Pure hypercholesterolemia, unspecified; K21.9 Gastro-esophageal reflux disease without esophagitis; M19.90 Unspecified osteoarthritis, unspecified site; Z87.891 Personal history of nicotine dependence
CPT/HCPCS: 81001

== ENCOUNTER 2018-12-07 15:37 | Outpatient (CLI) | payer BC, MEDICARE ==
--- NOTE | 2018-12-07 16:35 | XRay Report ---
PROCEDURE: XR CHEST ROUTINE 2V TECHNIQUE: Chest radiograph , PA and lateral views. HISTORY: CHRONIC OBSTRUCTIVE PULMONARY DISEASE COMPARISONS: CXR 09/12/2018 . FINDINGS: Heart: Normal. Mediastinum/Vessels: Normal. Lungs/Pleural space: There is mild infiltrate in the left base with air bronchograms suspicious for p neumonia, likely in the lingula. Apical pleural thickening on the right is again noted. Bony thorax: No acute osseous abnormality. Life support devices: None. IMPRESSION: Mild infiltrate in the lingula. Chronic pleural thickening in the right apex is stable. This document is electronically signed by Christie Meehan MD., December 07 2018 04:33:44 PM ET
== END 2018-12-07 15:38 | disposition home or self-care (01) ==
LOC: XRAY 15:37
PROVIDERS: ATTEND Internal Medicine
DX: J44.9 Chronic obstructive pulmonary disease, unspecified (principal); R91.8 Other nonspecific abnormal finding of lung field; E78.5 Hyperlipidemia, unspecified; I73.9 Peripheral vascular disease, unspecified; I48.91 Unspecified atrial fibrillation; I11.0 Hypertensive heart disease with heart failure; I50.9 Heart failure, unspecified; I25.10 Atherosclerotic heart disease of native coronary artery without angina pectoris; K21.9 Gastro-esophageal reflux disease without esophagitis; Z87.891 Personal history of nicotine dependence
CPT/HCPCS: 71046

== ENCOUNTER 2018-12-12 11:22 | Outpatient (CLI) | payer BC, MEDICARE | END 2018-12-12 11:23 | disposition home or self-care (01) | LOC: LAB 11:22 | PROVIDERS: ATTEND Internal Medicine | DX: Z13.1 Encounter for screening for diabetes mellitus (principal); N39.9 Disorder of urinary system, unspecified; I11.0 Hypertensive heart disease with heart failure; I50.9 Heart failure, unspecified; E78.00 Pure hypercholesterolemia, unspecified; J44.9 Chronic obstructive pulmonary disease, unspecified; K21.9 Gastro-esophageal reflux disease without esophagitis; E78.5 Hyperlipidemia, unspecified; I48.91 Unspecified atrial fibrillation; Z87.891 Personal history of nicotine dependence | CPT/HCPCS: 36415; 82607; 83036; 84153 ==

== ENCOUNTER 2018-12-26 16:06 | Outpatient (CLI) | payer BC, MEDICARE ==
--- NOTE | 2018-12-26 22:05 | Magnetic Resonance Report ---
PROCEDURE: MR LE JOINT RT WO CON HISTORY: OSTEONECROSIS, RT HIP PAIN(GROIN AREA) & LEG PAIN. FINDINGS: MRI of the bony pelvis was performed using coronal T1, coronal inversion recovery, coronal proton density, axial proton density images of the pelvis and both hips, as well as thin section axia l proton density, sagittal T1 and coronal proton density images of the right hip only. These images demonstrate osseous metastatic disease. Lesion in the medial aspect of the right femoral head and neck measures approximately 3.7 x 2.6 cm. L esion in the right proximal femoral diaphysis measures approximately 1.7 cm. Lesion in the lateral left femoral neck extending into the superior aspect of the intertrochanteric r egion measures 3.8 x 2.9 cm. The lesion in the right pubis measures 1.8 cm. There are multiple lesions in both iliac bones, the sacrum, as well as lesions within L4 and L5. The patient's primary tumor is not clearly identified. There is no MR evidence of avascular necrosis. There is moderate bilateral hip osteoarthritis. There is a small right hip joint effusion. There is some stranding of the insertion both right and left glu teus medius tendons, likely gluteus medius strain and/or tendinopathy. No fracture is seen. Given the patient has bilateral femoral neck metastasis, however, the patient is at risk for pathologic fracture. IMPRESSION: Widespread osseous metastatic disease This document is electronically signed by Fortunato Overton MD., Dec 26 2018 10:04:04 PM ET
== END 2018-12-26 16:07 | disposition home or self-care (01) ==
LOC: MRI 16:06
PROVIDERS: ATTEND Internal Medicine
DX: M87.9 Osteonecrosis, unspecified (principal); M25.551 Pain in right hip; I11.0 Hypertensive heart disease with heart failure; I50.9 Heart failure, unspecified; E78.00 Pure hypercholesterolemia, unspecified; K21.9 Gastro-esophageal reflux disease without esophagitis
CPT/HCPCS: 73721

== ENCOUNTER 2018-12-28 09:19 | Inpatient (IN) | payer BC, MEDICARE ==
[2018-12-28] MEDS ORDERED: DILAUDID IV ONE ×4 (09:58→13:44)
--- NOTE | 2018-12-28 10:08 | Emergency Department Report ---
ED Lower Extremity HPI - General Chief Complaint: Extremity Injury, Lower Stated Complaint: GLF/RT HIP PAIN Time Seen by Provider: 12/28/18 09:56 Source: patient, family, EMS Mode of arrival: Stretcher Limitations: Physical Limitation - History of Present Illness Initial Comments: Patient is a 73-year-old male Emergency room with complaints of right hip pain. Patient states he fell in the bathtub this morning. Patient denies hitting his head. Patient denies LOC. Patient states the pain is a 10 out of 10. Patient states the pain is radiating from his right hip to his right foot. Patient states the pain is worse with movement and better with rest. MD Complaint: hip injury -: Sudden Injury: Hip: Right Type of Injury: blunt Place: home Severity: severe Severity scale (0 -10): 10 Improves With: rest Worsens With: weight bearing, movement, palpation Context: fall, direct blow Associated Symptoms: snap/pop sensation Treatments Prior to Arrival: other - Related Data Home Medications Medication Instructions Recorded Confirmed Last Taken Cyclobenzaprine HCl [Flexeril 5 MG 5 mg PO TID PRN 12/28/18 12/28/18 Unknown TAB] Diclofenac 1% 1 applic TP DAILY 12/28/18 12/28/18 Unknown Famotidine [Pepcid] 20 mg PO HS 12/28/18 12/28/18 Unknown Metoprolol Xl [Metoprolol 25 mg PO QDAY 12/28/18 12/28/18 Unknown SUCCINATE ER TAB] oxyCODONE /ACETAMINOPHEN [Percocet 1 tab PO Q6HR PRN 12/28/18 12/28/18 Unknown 5/325] traMADol [Ultram] 50 mg PO Q6HR PRN 12/28/18 12/28/18 Unknown Previous Rx's Medication Instructions Recorded Last Taken Type Apixaban [Eliquis] 5 mg PO Q12HR #60 tablet 09/20/18 Unknown Rx Arformoterol Nebu [Brovana Nebu] 15 mcg IH Q12HRT 30 Days #30 ml 09/20/18 Unknown Rx Aspirin [Aspirin BABY CHEW TAB] 81 mg PO DAILY #30 09/20/18 07/27/18 Rx Budesonide [Pulmicort Respules] 0.5 mg IH Q12HRT 30 Days nebu 09/20/18 Unknown Rx Allergies Allergy/AdvReac Type Severity Reaction Status Date / Time No Known Allergies Allergy Verified 12/12/13 06:46 ED Review of Systems ROS: Stated complaint: GLF/RT HIP PAIN Other details as noted in HPI Constitutional: denies: chills, fever Eyes: denies: eye pain, eye discharge, vision change ENT: denies: ear pain, throat pain Respiratory: denies: cough, shortness of breath, wheezing Cardiovascular: denies: chest pain, palpitations Endocrine: no symptoms reported Gastrointestinal: denies: abdominal pain, nausea, diarrhea Genitourinary: denies: urgency, dysuria Musculoskeletal: denies: back pain, joint swelling, arthralgia Skin: denies: rash, lesions Neurological: denies: headache, weakness, paresthesias Psychiatric: denies: anxiety, depression Hematological/Lymphatic: denies: easy bleeding, easy bruising ED Past Medical Hx - Past Medical History Previous Medical History?: Yes Hx Hypertension: Yes Hx Heart Attack/AMI: No Hx Congestive Heart Failure: Yes Hx Deep Vein Thrombosis: Yes Hx Liver Disease: No Hx Renal Disease: No Hx Sickle Cell Disease: No Hx Arthritis: Yes Hx Seizures: No Hx Asthma: No Hx COPD: Yes Additional medical history: Skin cancer - Surgical History Past Surgical History?: Yes Hx Pacemaker: No Hx Internal Defibrillator: No Additional Surgical History: Vein bypass- Right Leg - Family History Family history: no significant - Social History Smoking Status: Never Smoker Substance Use Type: None - Medications Home Medications: Home Medications Medication Instructions Recorded Confirmed Last Taken Type Apixaban [Eliquis] 5 mg PO Q12HR #60 tablet 09/20/18 12/28/18 Unknown Rx Arformoterol Nebu [Brovana Nebu] 15 mcg IH Q12HRT 30 Days #30 ml 09/20/18 12/28/18 Unknown Rx Aspirin [Aspirin BABY CHEW TAB] 81 mg PO DAILY #30 09/20/18 12/28/18 07/27/18 Rx Budesonide [Pulmicort Respules] 0.5 mg IH Q12HRT 30 Days nebu 09/20/18 12/28/18 Unknown Rx Cyclobenzaprine HCl [Flexeril 5 MG 5 mg PO TID PRN 12/28/18 12/28/18 Unknown History TAB] Diclofenac 1% 1 applic TP DAILY 12/28/18 12/28/18 Unknown History Famotidine [Pepcid] 20 mg PO HS 12/28/18 12/28/18 Unknown History Metoprolol Xl [Metoprolol 25 mg PO QDAY 12/28/18 12/28/18 Unknown History SUCCINATE ER TAB] oxyCODONE /ACETAMINOPHEN [Percocet 1 tab PO Q6HR PRN 12/28/18 12/28/18 Unknown History 5/325] traMADol [Ultram] 50 mg PO Q6HR PRN 12/28/18 12/28/18 Unknown History ED Physical Exam - General Limitations: Physical Limitation General appearance: alert, in no apparent distress - Head Head exam: Present: atraumatic, normocephalic - Eye Eye exam: Present: normal appearance - ENT ENT exam: Present: mucous membranes moist - Neck Neck exam: Present: normal inspection - Respiratory Respiratory exam: Present: normal lung sounds bilaterally. Absent: respiratory distress - Cardiovascular Cardiovascular Exam: Present: regular rate, normal rhythm. Absent: systolic murmur, diastolic murmur, rubs, gallop - GI/Abdominal GI/Abdominal exam: Present: soft, normal bowel sounds - Rectal Rectal exam: Present: deferred - Extremities Exam Extremities exam: Present: normal inspection (except for right lower extremity.), tenderness, other (right lower extremity laterally rotated and right hip tenderness to palpation) - Back Exam Back exam: Present: normal inspection - Neurological Exam Neurological exam: Present: alert, oriented X3 - Psychiatric Psychiatric exam: Present: normal affect, normal mood - Skin Skin exam: Present: warm, dry, intact, normal color. Absent: rash ED Course Vital Signs 12/28/18 12/28/18 12/28/18 09:27 09:31 09:34 Temperature 98 F Pulse Rate 84 Respiratory 16 Rate Blood Pressure 151/76 137/82 Blood Pressure 151/76 [Right] O2 Sat by Pulse 96 94 Oximetry 12/28/18 12/28/18 12/28/18 09:45 10:00 10:13 Temperature Pulse Rate Respiratory 18 Rate Blood Pressure 137/82 146/84 Blood Pressure [Right] O2 Sat by Pulse 92 94 Oximetry 12/28/18 12/28/18 12/28/18 10:15 10:30 10:45 Temperature Pulse Rate Respiratory Rate Blood Pressure 146/84 154/81 154/81 Blood Pressure [Right] O2 Sat by Pulse 94 92 92 Oximetry 12/28/18 12/28/18 12/28/18 11:00 11:15 11:30 Temperature Pulse Rate Respiratory Rate Blood Pressure 153/77 153/77 148/81 Blood Pressure [Right] O2 Sat by Pulse 92 92 93 Oximetry 12/28/18 12/28/18 12/28/18 11:35 11:45 12:01 Temperature Pulse Rate Respiratory 16 Rate Blood Pressure 148/81 138/79 Blood Pressure [Right] O2 Sat by Pulse 92 90 Oximetry 12/28/18 12/28/18 12:15 12:30 Temperature Pulse Rate Respiratory Rate Blood Pressure 138/79 156/82 Blood Pressure [Right] O2 Sat by Pulse 91 91 Oximetry - Reevaluation(s) Reevaluation #1: Evaluation done. X-rays pending. We'll do labs. Patient in significant pain and will be given more pain meds. 12/28/18 10:07 Discussed results and plan of care with patient. Patient agrees with plan. Patient to be admitted to the hospitalist service. 12/28/18 11:25 - Consultations Consultation #1: Dr. Fischer consulted. Dr. Fischer, ortho wants patient admitted to the ospitalist service and he will operate on patient tomorrow. 12/28/18 11:15 Consultation #2: Hospitalist consultation for admission. Hospitalist to admit patient and assume care of patient. 12/28/18 11:21 ED Lower Extremity MDM - Lab Data Result diagrams: 12/28/18 14:51 12/28/18 10:55 - Radiology Data Radiology results: report reviewed, image reviewed interpreted by me: fem neck fx RIGHT HIP, 2 views: History: Hip pain, deformity. Findings: Compared to 12/21/18. A transverse fracture through the mid right femoral neck is identified on today's exam. There is mild superior and lateral displacement of the proximal femur. The right femoral head and right acetabulum are unremarkable. Diffuse vascular calcifications are noted. IMPRESSION: Right femoral neck fracture. - Medical Decision Making Patient is a 73-year-old male that presents to emergency room with right hip p ain. Patient had a fall in the bathroom. Patient found to have a right femoral head fracture. Patient will be admitted to the hospitalist service. Orthopedics consulted and will see the patient. Labs unremarkable. X-ray shows fracture. - Differential Diagnosis hip pain. Hip dislocation. Fracture. Contusion strain sprain Critical Care Time: Yes Critical care attestation.: If time is entered above; I have spent that time in minutes in the direct care of this critically ill patient, excluding procedure time. Critical Care Time: 35 minutes ED Disposition Clinical Impression: Hip pain Qualifiers: Laterality: right Qualified Code(s): M25.551 - Pain in right hip Hip fracture Qualifiers: Encounter type: initial encounter Fracture type: closed Laterality: right Qualified Code(s): S72.001A - Fracture of unspecified part of neck of right femur, initial encounter for closed fracture Hypertension Qualifiers: Hypertension type: essential hypertension Qualified Code(s): I10 - Essential (primary) hypertension Femoral neck fracture Qualifiers: Encounter type: initial encounter Fracture type: closed Laterality: right Qualified Code(s): S72.001A - Fracture of unspecified part of neck of right femur, initial encounter for closed fracture Disposition: DC-09 OP ADMIT IP TO THIS HOSP Is pt being admited?: Yes Does the pt Need Aspirin: No Condition: Critical Time of Disposition: 11:24
--- NOTE | 2018-12-28 10:15 | XRay Report ---
RIGHT HIP, 2 views: History: Hip pain, deformity. Findings: Compared to 12/21/18. A transverse fracture through the mid right femoral neck is identified on today's exam. There is mild superior and lateral displacement of the proximal femur. The right femoral head and right acetabulum are unremarkable. Diffuse vascular calcifications are noted. IMPRESSION: Right femoral neck fracture.
[2018-12-28 11:08] LABS: Hematocrit 34.6 % (35.5-45.6); Hemoglobin 11.2 gm/dl (11.8-15.2); Mean Corpuscular HGB Conc 32 % (32-34); Mean Corpuscular Volume 94 fl (84-94); Platelet Count 378 K/mm3 (140-440); Red Cell Distribution Width 17.2 % (13.2-15.2)
[2018-12-28 11:32] LABS: BUN/Creatinine Ratio 23; Blood Urea Nitrogen 18 mg/dL (9-20); Calcium 9.8 mg/dL (8.4-10.2); Hemolysis Index 8
[2018-12-28] MEDS ORDERED: TYLENOL PO PRN (11:41)
[2018-12-28] MEDS ORDERED: SODIUM CHLORIDE FLUSH SYRINGE 10 ML IV PRN (11:41)
[2018-12-28] MEDS ORDERED: ZOFRAN IV PRN (11:41)
--- NOTE | 2018-12-28 11:48 | History and Physical Report ---
History of Present Illness Chief complaint: My hip hurts History of present illness: 73 YO Male with H/O COPD, PVD, HTN, HLD, Seizure Disorder, Skin Cancer, Atrial Fib on Therapeutic Anticoagulation, CHF, OA presents to ED for evaluation. Pt states that he slipped while getting into his bathtub this morning, and exper ienced a fall. Pt states that he developed severe pain in his right hip and was unable to stand and bear weight on his hip immediately after the fall. Pt states that pain is 10/10, constant, worsened with movement. EMS notified, and upon arrival the patient was found to be in distress. Pt transported to [facility]. Pt seen and evaluated in ED and found to have a suspected Pathologic Right hip fracture. Pt admitted to Surgical floor. Ortho surgery consulted in ED. Pt is pending surgical intervention when medically optimized. Cardiology consulted in ED. Pt denies fever, chills, CP, Palpitations, NVD, Syncope, Seizure, hemoptysis, skin rash, ,or known recent ill contacts. Pt denies head trauma. Oncology consulted in ED. Pulmonary consulted in ED. Past History Past Medical History: acute [place], cancer, COPD, heart failure, hypertension, PVD Past Surgical History: Other (Right leg) Social history: single. denies: smoking, alcohol abuse, prescription drug abuse Family history: hypertension Medications and Allergies Allergies Allergy/AdvReac Type Severity Reaction Status Date / Time No Known Allergies Allergy Verified 12/12/13 06:46 Home Medications Medication Instructions Recorded Confirmed Last Taken Type Apixaban [Eliquis] 5 mg PO Q12HR #60 tablet 09/20/18 12/28/18 Unknown Rx Arformoterol Nebu [Brovana Nebu] 15 mcg IH Q12HRT 30 Days #30 ml 09/20/18 12/28/18 Unknown Rx Aspirin [Aspirin BABY CHEW TAB] 81 mg PO DAILY #30 09/20/18 12/28/18 07/27/18 Rx Budesonide [Pulmicort Respules] 0.5 mg IH Q12HRT 30 Days nebu 09/20/18 12/28/18 Unknown Rx Cyclobenzaprine HCl [Flexeril 5 MG 5 mg PO TID PRN 12/28/18 12/28/18 Unknown History TAB] Diclofenac 1% 1 applic TP DAILY 12/28/18 12/28/18 Unknown History Famotidine [Pepcid] 20 mg PO HS 12/28/18 12/28/18 Unknown History Metoprolol Xl [Metoprolol 25 mg PO QDAY 12/28/18 12/28/18 Unknown History SUCCINATE ER TAB] oxyCODONE /ACETAMINOPHEN [Percocet 1 tab PO Q6HR PRN 12/28/18 12/28/18 Unknown History 5/325] traMADol [Ultram] 50 mg PO Q6HR PRN 12/28/18 12/28/18 Unknown History Review of Systems Constitutional: no weight loss, no weight gain, no fever, no chills Ears, nose, mouth and throat: no ear pain, no ear discharge, no tinnitis, no decreased hearing, no nose pain Cardiovascular: no chest pain, no orthopnea, no palpitations, no rapid/irregular heart beat, no edema Respiratory: no cough with sputum, no excessive sputum, no hemoptysis Gastrointestinal: no nausea, no vomiting, no diarrhea, no constipation Genitourinary Male: no hematuria, no flank pain, no discharge, no urinary frequency, no urinary hesitancy Rectal: no pain, no incontinence, no bleeding Musculoskeletal: no neck stiffness, no neck pain, no shooting arm pain, no arm numbness/tingling, no low back pain Integumentary: no rash, no pruritis, no redness, no sores, no wounds Neurological: no transient paralysis, no paralysis, no weakness, no parathesias, no numbness, no tingling Psychiatric: no anxiety, no memory loss, no change in sleep habits, no sleep disturbances, no insomnia, no hypersomnia, no change in appetite, no change in libido Endocrine: no cold intolerance, no heat intolerance, no polyphagia, no excessive thirst, no polydipsia, no polyuria Hematologic/Lymphatic: no easy bruising, no easy bleeding, no lymphadenopathy Allergic/Immunologic: no urticaria, no allergic rhinitis, no wheezing Exam - Constitutional Vitals: Temp Pulse Resp BP Pulse Ox 98 F 84 18 151/76 94 12/28/18 09:34 12/28/18 09:34 12/28/18 10:13 12/28/18 09:34 12/28/18 09:34 General appearance: Present: mild distress - EENT Eyes: Present: PERRL ENT: hearing intact, clear oral mucosa - Neck Neck: Present: supple, normal ROM - Respiratory Respiratory effort: normal Respiratory: bilateral: diminished, rhonchi - Cardiovascular Heart Sounds: Present: S1 & S2. Absent: rub, click - Extremities Extremities: pulses symmetrical, No edema, abnormal (Right hip pain.) Peripheral Pulses: within normal limits - Abdominal General gastrointestinal: Present: soft, non-tender, non-distended, normal bowel sounds Male genitourinary: Present: normal - Integumentary Integumentary: Present: clear, warm, dry - Musculoskeletal Musculoskeletal: gait normal, strength equal bilaterally - Psychiatric Psychiatric: appropriate mood/affect, intact judgment & insight - Neurologic Neurologic: CNII-XII intact, moves all extremities Results - Labs CBC & Chem 7: 12/28/18 10:55 12/28/18 10:55 Labs: Abnormal lab results 12/28/18 12/28/18 Range/Units 10:55 10:55 WBC 14.1 H (4.5-11.0) K/mm3 Hgb 11.2 L (11.8-15.2) gm/dl Hct 34.6 L (35.5-45.6) % RDW 17.2 H (13.2-15.2) % Glucose 145 H (75-100) mg/dL Assessment and Plan - Patient Problems (1) Hip fracture Status: Acute Qualifiers: Encounter type: initial encounter Fracture type: closed Laterality: right Qualified Code(s): S72.001A - Fracture of unspecified part of neck of right femur, initial encounter for closed fracture Plan to address problem: Ortho consulted in ED, for surgical intervention and bone biopsy for pathologic bone fracture S/P fall, (2) COPD (chronic obstructive pulmonary disease) Status: Acute Plan to address problem: Supplemental oxygen, pulse oximetry, IV antibiotic therapy, chest x ray, incentive spirometry, pulmonary toilet, Pulmonology consulted in ED. CT chest ordered (3) Heart failure Status: Acute Plan to address problem: Echo, Cardiology consulted, BNP, strict I/O, daily weight, afterload reduction, pulse oximetry, (4) SIRS (systemic inflammatory response syndrome) Status: Acute Plan to address problem: Empiric Iv antibiotic therapy, chest x ray, urinalysis, blood cultures., CT Chest/Abdomen/Pelvis, (5) Atrial fibrillation Status: Acute Qualifiers: Atrial fibrillation type: persistent Qualified Code(s): I48.1 - Persistent atrial fibrillation Plan to address problem: Rate control with amiodarone, heprain drip, hold eliquis preoperatively, (6) HTN (hypertension) Status: Acute Qualifiers: Hypertension type: essential hypertension Qualified Code(s): I10 - Essential (primary) hypertension Plan to address problem: Monitor BP q shift, pain control, (7) DVT prophylaxis Status: Acute Plan to address problem: SCD to BLE while in bed, hold therapeutic anticoagulation for now. Pending surgical intervention in AM. Initiate heparin
[2018-12-28] MEDS ORDERED: PERCOCET 5/325 ONE (12:27)
[2018-12-28] MEDS ORDERED: DILAUDID ONE ×2 (12:27→13:35)
--- NOTE | 2018-12-28 12:35 | XRay Report ---
AP CHEST :12/28/18 11:41:00 CLINICAL: Dyspnea COMPARISON:12/07/18 FINDINGS: The lungs are underexpanded.Stable elevation of the right hemidiaphragm. Increased opacity in the left lower lobe and new silhouetting of the left hemidiaphragm. The left upper lobe is clear and the right lung is clear. Stable right apical pleural thickening. The heart is normal size. Large central pulmonary arteries. IMPRESSION: Increased left lower lobe opacification which is suspicious for either atelectasis or pneumonia. COPD and pulmonary artery hypertension.No CHF.
[2018-12-28] MEDS ORDERED: PERCOCET 5/325 PO ONE (12:40)
[2018-12-28] MEDS: ROCEPHIN/NS 1 GM/50 ML 1 GM/50 ML BAG IV SCH (12:54)
[2018-12-28] MEDS ORDERED: ROCEPHIN/NS 1 GM/50 ML 1 GM/50 ML BAG IV ONE (12:54)
[2018-12-28] MEDS ORDERED: NON-FORMULARY (Cyclobenzaprine Hcl [Flexeril 5 Mg Tab] 5 MG) PO PRN (13:10)
[2018-12-28] MEDS ORDERED: ULTRAM PO PRN (13:10)
--- NOTE | 2018-12-28 13:10 | Consultation ---
History of Present Illness Consult date: 12/28/18 Requesting physician: NARCISA MEJIA Consult reason: known to you, pre op evaluation History of present illness: The pt is a 73 YO male with a past medical history of paroxysmal atrial fibrillation, anticoagulated on Eliquis at home, PVD, COPD, on O2, respiratory failure s/p trach (trach removed in 09/2018), nonobstructive CAD, HTN, HLP. He is followed in our office by Dr. Bender. He presented for evaluation of hip and leg pain following a mechanical fall at home. Pt states that he slipped while getting into his bathtub and experienced a fall. Pt states that he developed severe pain in his right hip and was unable to stand and bear weight on his hip immediately after the fall. Pt states that pain is 10/10, constant, worsened with movement. Following arrival, pt was found to have a right femoral neck fracture and is tentatively scheduled for orthopedic surgery. Cardiology has been consulted to provide preoperative risk stratification. Pt denies any current cardiac complaints and states he has been feeling well until suffering this fall. LHC done 12/2015 showed nonobstructive CAD, LAD calcified mid 60%, Diagonal 1 patent with mild LI, circ and OM2 patent, OM1 ostial 60% lesion, RCA mid 30% tortuosity, normal LV function. Treat medically. Echo done 07/27/2018 showed EF 60-65%, asymmetric septal hypertrophy, mild TR. Echo done 05/2017 showed EF 55-60%, grade 1 diastolic dysfunction, mild TR, RVSP 22mmHg. Past History Past Medical History: cancer, COPD, hypertension, PVD Past Surgical History: Other (Right leg) Social history: single. denies: smoking, alcohol abuse, prescription drug abuse Family history: hypertension Medications and Allergies Allergies Allergy/AdvReac Type Severity Reaction Status Date / Time No Known Allergies Allergy Verified 12/12/13 06:46 Home Medications Medication Instructions Recorded Confirmed Last Taken Type Apixaban [Eliquis] 5 mg PO Q12HR #60 tablet 09/20/18 12/28/18 Unknown Rx Arformoterol Nebu [Brovana Nebu] 15 mcg IH Q12HRT 30 Days #30 ml 09/20/18 Unknown Rx Aspirin [Aspirin BABY CHEW TAB] 81 mg PO DAILY #30 02/01/0112/28/18 07/27/18 Rx Budesonide [Pulmicort Respules] 0.5 mg IH Q12HRT 30 Days nebu 09/20/18 12/28/18 Unknown Rx Cyclobenzaprine HCl [Flexeril 5 MG 5 mg PO TID PRN 12/28/18 12/28/18 Unknown History TAB] Diclofenac 1% 1 applic TP DAILY 12/28/18 12/28/18 Unknown History Famotidine [Pepcid] 20 mg PO HS 12/28/18 12/28/18 Unknown History Metoprolol Xl [Metoprolol 25 mg PO QDAY 12/28/18 12/28/18 Unknown History SUCCINATE ER TAB] oxyCODONE /ACETAMINOPHEN [Percocet 1 tab PO Q6HR PRN 12/28/18 12/28/18 Unknown History 5/325] traMADol [Ultram] 50 mg PO Q6HR PRN 12/28/18 12/28/18 Unknown History Active Meds: Active Medications Acetaminophen (Tylenol) 650 mg PO Q4H PRN PRN Reason: Pain MILD(1-3)/Fever >100.5/SKINNER Amiodarone HCl (Cordarone) 200 mg PO DAILY [facility] Arformoterol Tartrate (Brovana Nebu) 15 mcg IH Q12HRT [facility] Budesonide (Pulmicort) 0.5 mg IH Q12HRT [facility] Famotidine (Pepcid) 20 mg PO BID [facility] Ceftriaxone Sodium (Rocephin/Ns 1 Gm/50 Ml) 1 gm in 50 mls @ 100 mls/hr IV Q24HR [facility]; Protocol Last Admin: 12/28/18 12:54 Dose: 100 mls/hr Documented by: Levalbuterol HCl (Xopenex) 0.63 mg IH TIDRT [facility] Miscellaneous Medication (Cyanocobalamin (Vitamin B-12) [Vitamin B12]) 2,500 mcg PO DAILY [facility] Morphine Sulfate (Morphine) 2 mg IV Q4H PRN PRN Reason: Pain, Moderate (4-6) Ondansetron HCl (Zofran) 4 mg IV Q8H PRN PRN Reason: Nausea And Vomiting Oxycodone/Acetaminophen (Percocet 5/325) 1 tab PO Q6H PRN PRN Reason: Pain, Moderate (4-6) Polyethylene Glycol (Miralax 3350) 17 gm PO QDAY [facility] Pravastatin Sodium (Pravachol) 40 mg PO HS [facility] Quetiapine Fumarate (Seroquel) 100 mg PO HS [facility] Sodium Chloride (Sodium Chloride Flush Syringe 10 Ml) 10 ml IV BID [facility] Sodium Chloride (Sodium Chloride Flush Syringe 10 Ml) 10 ml IV PRN PRN PRN Reason: LINE FLUSH Tamsulosin HCl (Flomax) 0.4 mg PO QDAY@0800 [facility] Review of Systems All systems: negative (right hip and leg pain) Cardiovascular: no chest pain, no orthopnea, no palpitations, no rapid/irregular heart beat, no edema, no syncope, no lightheadedness, no shortness of breath, no dyspnea on exertion, no leg edema, no decreased exercise tolerance Physical Examination Vital Signs BP 151/76 12/28/18 09:27 General appearance: no acute distress HEENT: Positive: PERRL, Normocephaly, Mucus Membranes Moist Neck: Positive: neck supple, trachea midline Cardiac: Positive: Reg Rate and Rhythm, S1/S2 Lungs: Positive: Decreased Breath Sounds Neuro: Positive: Grossly Intact Abdomen: Positive: Soft. Negative: Tender Skin: Negative: Rash Musculoskeletal: other (right hip and RLE pain) Extremities: Absent: edema Results 12/28/18 10:55 12/28/18 10:55 CBC 12/28/18 Range/Units 10:55 WBC 14.1 H (4.5-11.0) K/mm3 RBC 3.70 (3.65-5.03) M/mm3 Hgb 11.2 L (11.8-15.2) gm/dl Hct 34.6 L (35.5-45.6) % Plt Count 378 (140-440) K/mm3 Comprehensive Metabolic Panel 12/28/18 Range/Units 10:55 Sodium 140 (137-145) mmol/L Potassium 4.1 (3.6-5.0) mmol/L Chloride 99.9 (98-107) mmol/L Carbon Dioxide 26 (22-30) mmol/L BUN 18 (9-20) mg/dL Creatinine 0.8 (0.8-1.5) mg/dL Glucose 145 H (75-100) mg/dL Calcium 9.8 (8.4-10.2) mg/dL - Imaging and Cardiology Echo: report reviewed (07/27/2018 showed EF 60-65%, asymmetric septal hypertrophy, mild TR. Echo done 05/2017 showed EF 55-60%, grade 1 diastolic dysfunction, mild TR, RVSP 22mmHg. 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 Treat medically. ) EKG: report reviewed, image reviewed EKG interpretations - Telemetry EKG Rhythm: Sinus Rhythm - EKG Sinus rhythms and dysrhythmias: sinus rhythm AV and intraventricular conduction: right bundle branch block Assessment and Plan Pt presented with right hip fx s/p mechanical fall at home, no syncope. He denies any current cardiac complaints. Currently stable cardiac status. Pt is currently at moderate cardiovascular risk for contemplated orthopedic surgery. There are no immediate cardiac contraindications to proceeding with orthopedic surgery at this time. Hold home Eliquis. Otherwise, cont home cardiac regimen. The patient has been seen in conjunction with Dr. Jo who agrees with the assessment and plan of care. - Patient Problems (1) Hip fracture Current Visit: No Status: Acute Qualifiers: Encounter type: initial encounter Fracture type: closed Laterality: right Qualified Code(s): S72.001A - Fracture of unspecified part of neck of right femur, initial encounter for closed fracture (2) Nonobstructive atherosclerosis of coronary artery Current Visit: No Status: Chronic (3) Paroxysmal atrial fibrillation Current Visit: No Status: Chronic (4) COPD (chronic obstructive pulmonary disease) Current Visit: No Status: Chronic (5) Hypertension Current Visit: No Status: Chronic Qualifiers: Hypertension type: essential hypertension Qualified Code(s): I10 - Essential (primary) hypertension (6) Hyperlipemia Current Visit: No Status: Chronic Qualifiers: Hyperlipidemia type: Mixed hyperlipidemia (7) Peripheral vascular disease Current Visit: No Status: Chronic
[2018-12-28] MEDS ORDERED: HEPARIN/ 0.45% NACL-25,000 UNIT/500 ML 25,000 UNIT/500 ML BAG IV SCH (14:00)
--- NOTE | 2018-12-28 14:46 | Cat Scan Report ---
CT ABDOMEN PELVIS WITH AND WITHOUT CONTRAST: HISTORY: Dyspnea. COMPARISON: none. TECHNIQUE: Helical CT in 1.25mm intervals before and after IV contrast. Sagittal and coronal reconstructions. FINDINGS: Liver: Normal. Biliary system: Normal. Pancreas: Normal. Spleen: Normal. Kidneys/ureters/bladder: Normal. Adrenal glands: Normal. Aorta: Moderate distal calcifications. No aneurysm. Intestines: Limited without oral contrast. There is no evidence for bowel obstruction or focal inflammation. Appendix: Not confidently identified. Pelvic viscera: Normal. Ascites: None. Adenopathy: None. Musculoskeletal: Mild osteopenia. There are multiple ill-defined lytic bony lesions throughout the thoracolumbar spine and pelvis and bilateral proximal femurs. Right femoral neck fracture appears to be pathologic due to an underlying lytic lesion.. IMPRESSION: Multiple lytic bony lesions as described above concerning for a metastatic process or multiple myeloma. Pathologic right femoral neck fracture.
--- NOTE | 2018-12-28 14:50 | Cat Scan Report ---
CT CHEST WITH CONTRAST: HISTORY: Dyspnea. COMPARISON: AP chest performed the same day. TECHNIQUE: Helical CT in 1.25mm intervals following IV contrast. Sagittal and coronal reformatted images. FINDINGS: Thyroid gland: Normal. Tracheobronchial tree: Within normal limits. Esophagus: Normal. Heart: The heart is normal size. Moderate three-vessel coronary artery calcifications are noted. Pericardium: Normal. Mediastinum: There appear to be a few mildly enlarged lymph nodes at the right hilum measuring up to 1.7 cm. Lung Stephens: Moderate to severe centrilobular and paraseptal emphysematous changes are identified in the upper lung zones. There is mild right apical scarring. An ill-defined opacity is seen just posterior to the right hilum measuring 2.8 x 2.3 cm in axial plane. It is unclear if this represents a mass, infiltrate or scarring. There is also mild subpleural atelectatic changes in the lower lung zones, right greater than left. No dominant pulmonary mass. Pleural Spaces: Normal. Musculoskeletal: Multiple lytic lesions are identified throughout the thoracic cage, scapula and proximal humeri. IMPRESSION: Emphysema. Atelectatic changes in the lower lung zones and right apical scarring. Questionable right perihilar density as described. Mildly enlarged right hilar lymph nodes. Multiple lytic bony lesions consistent with a metastatic process or multiple myeloma.
[2018-12-28 15:13] LABS: Hemoglobin 10.8 gm/dl (11.8-15.2)
[2018-12-28 15:25] LABS: INR 1.13 (0.87-1.13)
[2018-12-28 15:26] LABS: Partial Thromboplastin Time 38.9 Sec. (24.2-36.6)
[2018-12-28 15:29] LABS: Hematocrit 33.2 % (35.5-45.6)
[2018-12-28] MEDS: MORPHINE IV PRN ×2 (16:48→20:29)
--- NOTE | 2018-12-28 17:12 | Consultation ---
History of Present Illness - [facility] Consult date: 12/28/18 Consult reason: fracture History of present illness: 73 YO Male with H/O COPD, PVD, HTN, HLD, Seizure Disorder, Skin Cancer, Atrial Fib on Therapeutic Anticoagulation, CHF, OA presents to ED for evaluation. Pt states that he slipped while getting into his bathtub this morning, and experienced a fall. Pt states that he developed severe pain in his right hip and was unable to stand and bear weight on his hip immediately after the fall. He was seen in the emergency department where x-rays were taken revealing a displaced right femoral neck fracture Past History Past Medical History: cancer, COPD, hypertension, PVD Past Surgical History: Other (Right leg) Social history: single. denies: smoking, alcohol abuse, prescription drug abuse Family history: hypertension Medications and Allergies Allergies Allergy/AdvReac Type Severity Reaction Status Date / Time No Known Allergies Allergy Verified 12/12/13 06:46 Home Medications Medication Instructions Recorded Confirmed Last Taken Type Apixaban [Eliquis] 5 mg PO Q12HR #60 tablet 09/20/18 12/28/18 Unknown Rx Arformoterol Nebu [Brovana Nebu] 15 mcg IH Q12HRT 30 Days #30 ml 09/20/18 12/28/18 Unknown Rx Aspirin [Aspirin BABY CHEW TAB] 81 mg PO DAILY #30 09/20/18 12/28/18 07/27/18 Rx Budesonide [Pulmicort Respules] 0.5 mg IH Q12HRT 30 Days nebu 09/20/18 12/28/18 Unknown Rx Cyclobenzaprine HCl [Flexeril 5 MG 5 mg PO TID PRN 12/28/18 12/28/18 Unknown History TAB] Diclofenac 1% 1 applic TP DAILY 12/28/18 12/28/18 Unknown History Famotidine [Pepcid] 20 mg PO HS 12/28/18 12/28/18 Unknown History Metoprolol Xl [Metoprolol 25 mg PO QDAY 12/28/18 12/28/18 Unknown History SUCCINATE ER TAB] oxyCODONE /ACETAMINOPHEN [Percocet 1 tab PO Q6HR PRN 12/28/18 12/28/18 Unknown History 5/325] traMADol [Ultram] 50 mg PO Q6HR PRN 12/28/18 12/28/18 Unknown History Active Meds: Active Medications Acetaminophen (Tylenol) 650 mg PO Q4H PRN PRN Reason: Pain MILD(1-3)/Fever >100.5/SKINNER Arformoterol Tartrate (Brovana Nebu) 15 mcg IH Q12HRT [facility] Budesonide (Pulmicort) 0.5 mg IH Q12HRT [facility] Cyclobenzaprine HCl (Flexeril) 5 mg PO Q8H PRN PRN Reason: Muscle Spasm Famotidine (Pepcid) 20 mg PO BID [facility] Famotidine (Pepcid) 20 mg PO HS [facility] Ceftriaxone Sodium (Rocephin/Ns 1 Gm/50 Ml) 1 gm in 50 mls @ 100 mls/hr IV Q24HR [facility]; Protocol Last Infusion: 12/28/18 16:39 Dose: Infused Documented by: Heparin Sodium/Sodium Chloride (Heparin/ 0.45% Nacl-25,000 Unit/500 Ml) 25,000 unit in 500 mls @ 24 mls/hr IV TITR [facility]; Protocol Levalbuterol HCl (Xopenex) 0.63 mg IH TIDRT [facility] Metoprolol Succinate (Toprol Xl) 25 mg PO QDAY [facility] Morphine Sulfate (Morphine) 2 mg IV Q4H PRN PRN Reason: Pain, Moderate (4-6) Last Admin: 12/28/18 16:48 Dose: 2 mg Documented by: Ondansetron HCl (Zofran) 4 mg IV Q8H PRN PRN Reason: Nausea And Vomiting Last Admin: 12/28/18 16:49 Dose: 4 mg Documented by: Oxycodone/Acetaminophen (Percocet 5/325) 1 tab PO Q6H PRN PRN Reason: Pain, Moderate (4-6) Polyethylene Glycol (Miralax 3350) 17 gm PO QDAY [facility] Pravastatin Sodium (Pravachol) 40 mg PO HS [facility] Quetiapine Fumarate (Seroquel) 100 mg PO HS [facility] Sodium Chloride (Sodium Chloride Flush Syringe 10 Ml) 10 ml IV BID [facility] Sodium Chloride (Sodium Chloride Flush Syringe 10 Ml) 10 ml IV PRN PRN PRN Reason: LINE FLUSH Tamsulosin HCl (Flomax) 0.4 mg PO QDAY@0800 [facility] Tramadol HCl (Ultram) 50 mg PO Q6HR PRN PRN Reason: Pain Physical Examination - Physical exam Narrative exam: On physical examination significant musculoskeletal findings relates to the lower extremity on the right patient is noted to have shortening and external rotation he was tender about the right groin area there is decreased passive range of motion secondary to pain distal neurovascular status is intact Plain x-rays taken today in the emergency department were reviewed by me and show a displaced right femoral neck fracture Assessment and Plan Displaced right femoral neck fracture Recommendations patient will require operative fixation with bipolar hip replacement
--- NOTE | 2018-12-28 19:17 | Consultation ---
History of Present Illness Consult date: 12/28/18 Reason for consult: COPD History of present illness: PULMONARY AND CRITICAL CARE CONSULTATION DR. MEJIA THANK YOU FOR ASKING US TO PARTICIPATE IN THE CARE OF THIS PATIENT. 73 YO Male with H/O COPD, PVD, HTN, HLD, Seizure Disorder, Skin Cancer, Atrial Fib on Therapeutic Anticoagulation, CHF, OA presents to ED for evaluation. Pt states that he slipped while getting into his bathtub this morning, and experienced a fall. Pt states that he developed severe pain in his right hip and was unable to stand and bear weight on his hip immediately after the fall. Pt states that pain is 10/10, constant, worsened with movement. EMS notified, and upon arrival the patient was found to be in distress. Pt transported to [facility]. Pt seen and evaluated in ED and found to have a suspected Pathologic Right hip fracture. Pt admitted to Surgical floor. Ortho surgery consulted in ED. Pt is pending surgical intervention when medically optimized. Cardiology consulted in ED. Pt denies fever, chills, CP, Palpitations, NVD, Syncope, Seizure, hemoptysis, skin rash, ,or known recent ill contacts. Pt denies head trauma. Oncology consulted in ED. Patient has heavy history of smoking. 3 packs x 50 years. Stopped smoking since 2011. Denies alcohol or drug abuse. Patient has history of COPD and Hypertension. H/O pneumonia in the past. Not . Has no children. No known drug allergies. 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 Resting on 4 litres O2. O2 saturation 93%. Patient had CT of chest 12/28/18 IMPRESSION: Emphysema. Atelectatic changes in the lower lung zones and right apical scarring. Questionable right perihilar density as described. Mildly enlarged right hilar lymph nodes. Multiple lytic bony lesions consistent with a metastatic process or multiple myeloma. Recommend ABGs on O2. Bedside spirometry. Albuterol/atrovent aerosol treatments q 6 hours. Incentive spirometry. Patient is on I/V Heparin. Recommend to stop Heparin 6 to eight hours before surgery and coags before surgery. Past History Past Medical History: cancer, COPD, hypertension, PVD Past Surgical History: Other (Right leg) Social history: single. denies: smoking, alcohol abuse, prescription drug abuse Family history: hypertension Medications and Allergies Allergies Allergy/AdvReac Type Severity Reaction Status Date / Time No Known Allergies Allergy Verified 12/12/13 06:46 Home Medications Medication Instructions Recorded Confirmed Last Taken Type Apixaban [Eliquis] 5 mg PO Q12HR #60 tablet 09/20/18 12/28/18 Unknown Rx Arformoterol Nebu [Brovana Nebu] 15 mcg IH Q12HRT 30 Days #30 ml 09/20/18 12/28/18 Unknown Rx Aspirin [Aspirin BABY CHEW TAB] 81 mg PO DAILY #30 09/20/18 12/28/18 07/27/18 Rx Budesonide [Pulmicort Respules] 0.5 mg IH Q12HRT 30 Days nebu 09/20/18 12/28/18 Unknown Rx Cyclobenzaprine HCl [Flexeril 5 MG 5 mg PO TID PRN 12/28/18 12/28/18 Unknown History TAB] Diclofenac 1% 1 applic TP DAILY 12/28/18 12/28/18 Unknown History Famotidine [Pepcid] 20 mg PO HS 12/28/18 12/28/18 Unknown History Metoprolol Xl [Metoprolol 25 mg PO QDAY 12/28/18 12/28/18 Unknown History SUCCINATE ER TAB] oxyCODONE /ACETAMINOPHEN [Percocet 1 tab PO Q6HR PRN 12/28/18 12/28/18 Unknown History 5/325] traMADol [Ultram] 50 mg PO Q6HR PRN 12/28/18 12/28/18 Unknown History Active Meds: Active Medications Acetaminophen (Tylenol) 650 mg PO Q4H PRN PRN Reason: Pain MILD(1-3)/Fever >100.5/SKINNER Arformoterol Tartrate (Brovana Nebu) 15 mcg IH Q12HRT [facility] Budesonide (Pulmicort) 0.5 mg IH Q12HRT [facility] Cyclobenzaprine HCl (Flexeril) 5 mg PO Q8H PRN PRN Reason: Muscle Spasm Famotidine (Pepcid) 20 mg PO BID [facility] Famotidine (Pepcid) 20 mg PO HS [facility] Ceftriaxone Sodium (Rocephin/Ns 1 Gm/50 Ml) 1 gm in 50 mls @ 100 mls/hr IV Q24HR [facility]; Protocol Last Infusion: 12/28/18 16:39 Dose: Infused Documented by: Heparin Sodium/Sodium Chloride (Heparin/ 0.45% Nacl-25,000 Unit/500 Ml) 25,000 unit in 500 mls @ 24 mls/hr IV TITR [facility]; Protocol Levalbuterol HCl (Xopenex) 0.63 mg IH TIDRT [facility] Metoprolol Succinate (Toprol Xl) 25 mg PO QDAY [facility] Morphine Sulfate (Morphine) 2 mg IV Q4H PRN PRN Reason: Pain, Moderate (4-6) Last Admin: 12/28/18 16:48 Dose: 2 mg Documented by: Ondansetron HCl (Zofran) 4 mg IV Q8H PRN PRN Reason: Nausea And Vomiting Last Admin: 12/28/18 16:49 Dose: 4 mg Documented by: Oxycodone/Acetaminophen (Percocet 5/325) 1 tab PO Q6H PRN PRN Reason: Pain, Moderate (4-6) Polyethylene Glycol (Miralax 3350) 17 gm PO QDAY [facility] Pravastatin Sodium (Pravachol) 40 mg PO HS [facility] Quetiapine Fumarate (Seroquel) 100 mg PO HS [facility] Sodium Chloride (Sodium Chloride Flush Syringe 10 Ml) 10 ml IV BID [facility] Sodium Chloride (Sodium Chloride Flush Syringe 10 Ml) 10 ml IV PRN PRN PRN Reason: LINE FLUSH Tamsulosin HCl (Flomax) 0.4 mg PO QDAY@0800 [facility] Tramadol HCl (Ultram) 50 mg PO Q6HR PRN PRN Reason: Pain Review of Systems All systems: negative Physical Examination Vital signs: Vital Signs BP 151/76 12/28/18 09:27 General appearance: no acute distress, alert Eyes: non-icteric ENT: oropharynx moist Neck: supple, no JVD Ascultation: Bilateral: diminished breath sounds Cardiovascular: irregular rhythm Gastrointestinal: normoactive bowel sounds, soft, non-tender Integumentary: normal Extremities: no cyanosis, no edema Gait: other ( and right femoral fracture.) normal mental status, pupils equal and round mood appropriate Results - Laboratory Findings CBC and BMP: 12/28/18 14:51 12/28/18 10:55 PT/INR, D-dimer PT 15.2 Sec. (12.2-14.9) H 12/28/18 14:51 INR 1.13 (0.87-1.13) 12/28/18 14:51 Abnormal lab findings: Abnormal Labs 12/28/18 12/28/18 12/28/18 10:55 10:55 14:51 WBC 14.1 H Hgb 11.2 L 10.8 L Hct 34.6 L 33.2 L RDW 17.2 H PT APTT Glucose 145 H 12/28/18 14:51 WBC Hgb Hct RDW PT 15.2 H APTT 38.9 H Glucose - Diagnostic Findings CT scan - chest: report reviewed, image reviewed Additional studies: CAT SCAN OF CHEST done on 12/28/18 IMPRESSION: Emphysema. Atelectatic changes in the lower lung zones and right apical scarring. Questionable right perihilar density as described. Mildly enlarged right hilar lymph nodes. Multiple lytic bony lesions consistent with a metastatic process or multiple myeloma. Assessment and Plan 73 YO Male with H/O COPD, PVD, HTN, HLD, Seizure Disorder, Skin Cancer, Atrial Fib on Therapeutic Anticoagulation, CHF, OA presents to ED for evaluation. Pt states that he slipped while getting into his bathtub this morning, and experienced a fall. Pt states that he developed severe pain in his right hip and was unable to stand and bear weight on his hip immediately after the fall. Pt states that pain is 10/10, constant, worsened with movement. EMS notified, and upon arrival the patient was found to be in distress. Pt transported to [facility]. Pt seen and evaluated in ED and found to have a suspected Pathologic Right hip fracture. Pt admitted to Surgical floor. Ortho surgery consulted in ED. Pt is pending surgical intervention when medically optimized. Cardiology consulted in ED. Pt denies fever, chills, CP, Palpitations, NVD, Syncope, Seizure, hemoptysis, skin rash, ,or known recent ill contacts. Pt denies head trauma. Oncology consulted in ED. Patient has heavy history of smoking. 3 packs x 50 years. Stopped smoking since 2011. Denies alcohol or drug abuse. Patient has history of COPD and Hypertension. H/O pneumonia in the past. Not . Has no children. No known drug allergies. 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 Resting on 4 litres O2. O2 saturation 93%. Patient had CT of chest 12/28/18 IMPRESSION: Emphysema. Atelectatic changes in the lower lung zones and right apical scarring. Questionable right perihilar density as described. Mildly enlarged right hilar lymph nodes. Multiple lytic bony lesions consistent with a metastatic process or multiple myeloma. Recommend ABGs on O2. Bedside spirometry. Albuterol/atrovent aerosol treatments q 6 hours. Incentive spirometry. Patient is on I/V Heparin. Recommend to stop Heparin 6 to eight hours before surgery and coags before surgery. - Patient Problems (1) Acute respiratory failure Current Visit: No Status: Acute Qualifiers: Respiratory failure complication: hypoxia Qualified Code(s): J96.01 - Acute respiratory failure with hypoxia Plan to address problem: O2 4 litres via nasal canula. Albuterol/atrovent aerosol treatments q 6 hours. Patient is on I/V heparin. Patient is on ceftrioxone. Continue famotidine. (2) Atrial fibrillation Current Visit: No Status: Acute Qualifiers: Atrial fibrillation type: persistent Qualified Code(s): I48.1 - Persistent atrial fibrillation Plan to address problem: Patient is on I/V Heparin. Management as per cardiology. (3) Femoral neck fracture Current Visit: Yes Status: Acute Qualifiers: Encounter type: initial encounter Fracture type: closed Laterality: right Qualified Code(s): S72.001A - Fracture of unspecified part of neck of right femur, initial encounter for closed fracture Plan to address problem: Orthopedics consulted. (4) HTN (hypertension) Current Visit: Yes Status: Acute Qualifiers: Hypertension type: essential hypertension Qualified Code(s): I10 - Ess ential (primary) hypertension Plan to address problem: Management as per primary care. (5) Hip fracture Current Visit: Yes Status: Acute Qualifiers: Encounter type: initial encounter Fracture type: closed Laterality: right Qualified Code(s): S72.001A - Fracture of unspecified part of neck of right femur, initial encounter for closed fracture Plan to address problem: Orthopedics consulted. (6) ARF (acute renal failure) with tubular necrosis Current Visit: No Status: Acute Plan to address problem: Management as per nephrology. (7) COPD exacerbation Current Visit: No Status: Acute Plan to address problem: O2 4 litres via nasal canula. Albuterol/atrovent aerosol treatments q 6 hours. desinide aerosol treatments q 12 hours. Patient is on I/V heparin. Patient is on ceftrioxone. Continue famotidine. (8) Cavitary lesion of lung Current Visit: No Status: Acute Plan to address problem: CTof chst done 12/28/18 reported Emphysema. Atelectatic changes in the lower lung zones and right apical scarring. Questionable right perihilar density . Mildly enlarged right hilar lymph nodes. Multiple lytic bony lesions consistent with a metastatic process or multiple myeloma.
[2018-12-28 19:24] LABS: Bilirubin,Urine NEG (Negative); Blood,Urine NEG (Negative); Color,Urine Yellow (Yellow); Mucus,Urine 2+ /HPF; Protein,Urine <15 mg/dL mg/dL (Negative); Urobilinogen,Urine < 2.0 mg/dL (<2.0)
[2018-12-28] MEDS: PRAVACHOL PO SCH (21:17)
[2018-12-28] MEDS: PEPCID PO SCH (21:18)
[2018-12-28] MEDS: PERCOCET 5/325 PO PRN (21:19)
[2018-12-28] MEDS: SODIUM CHLORIDE FLUSH SYRINGE 10 ML IV SCH (21:23)
[2018-12-28] MEDS: PULMICORT IH SCH (21:27)
[2018-12-28] MEDS: BROVANA NEBU IH SCH (21:27)
[2018-12-28] MEDS: XOPENEX IH SCH ×2 (21:27→22:22)
--- NOTE | 2018-12-29 08:32 | Event Note ---
Date: 12/29/18 [id number]
[2018-12-29] MEDS ORDERED: NON-FORMULARY (Cyanocobalamin (Vitamin B-12) [Vitamin B12] 2,500 MCG) PO SCH (10:00)
[2018-12-29] MEDS ORDERED: CORDARONE PO SCH (10:00)
[2018-12-29] MEDS ORDERED: VITAMIN B-12 PO SCH ×2 (10:00)
[2018-12-29] MEDS: DICLOFENAC 1% TP SCH (10:08)
[2018-12-29] MEDS: PEPCID PO SCH ×4 (10:34→23:52)
[2018-12-29] MEDS: TOPROL XL PO SCH (10:34)
[2018-12-29] MEDS: MIRALAX 3350 PO SCH (10:34)
[2018-12-29] MEDS: FLOMAX PO SCH (10:34)
--- NOTE | 2018-12-29 10:46 | Consultation ---
REFERRING PHYSICIAN: Dr. Birmingham. REASON FOR CONSULTATION: Bone lesion. HISTORY OF PRESENT ILLNESS: I saw the patient, a 73-year-old male, in the medical floor. The patient has history of COPD, peripheral vascular disease, hypertension, hyperlipidemia, facial skin cancer, atrial fibrillation, on anticoagulation, CHF, arthritis. I had seen him in the clinic setting 2 days ago. He has been having hip pain for a few weeks. Dr. Rahman, his primary, had done radiology, which showed multiple bone lesions and also lesions in the hips. The patient was referred to the ER at [facility] and was discharged. At home, he was having a shower and as he was coming out, he fell down. He was brought to the hospital and was found to have a right hip fracture. I have been asked to evaluate the patient in view of the bone lesions. There is a plan for surgery. Pulmonary team is also seeing the patient. In the recent past, the patient was admitted for pneumonia and treated. At this time, no headache, no visual disturbances, no ear discharge. Slightly short of breath, on oxygen. No abdominal pain, no vomiting, no diarrhea. Pain in the right hip. No seizure, syncope or loss of consciousness. PAST MEDICAL HISTORY: As above. PAST SURGICAL HISTORY: None significant. SOCIAL HISTORY: He is single, has a caregiver. No history of tobacco or alcohol usage. Worked until June 2018. FAMILY HISTORY: Hypertension. ALLERGIES: None. HOME MEDICATIONS: Include Eliquis, aspirin, cyclobenzaprine, Pepcid, tramadol, oxycodone. PHYSICAL EXAMINATION: VITAL SIGNS: Temperature 98.6, pulse 95, respirations 18, BP 131/69. HEENT: No pallor, no icterus. NECK: No neck lymph nodes. HEART: S1, S2. LUNGS: Clear to auscultation anteriorly. ABDOMEN: Soft. EXTREMITIES: Right hip fracture, pain present. NEUROLOGIC: Alert, awake, oriented. LABORATORY DATA: White cell 14, hemoglobin 11, MCV 94, platelets 378. Potassium 4.1, creatinine 0.8, calcium 9.8. Serum iron in August was 50, bilirubin 1.3 in July, B12 more than 2000 in November. TSH 1.1, folate 16. In the clinic setting, PSA was normal. RADIOLOGY: CT chest, abdomen and pelvis was done. It shows a few mildly enlarged lymph nodes, right hilum, 1.7 cm and an ill-defined opacity posterior to the right hilum measuring 2.8 cm. Multiple bone lesions, lytic. Liver was normal. Spleen was normal. ASSESSMENT: Bone lesions. Radiologist suggests metastatic disease versus myeloma. There are no lesions in liver, kidneys, or pancreas. 1. Hilar lymph node present, lung opacity present. 2. For hip fracture, surgery planned. 3. We will do myeloma investigation. 4. Mild anemia. 5. The patient will need anticoagulation with Eliquis for atrial fibrillation issues. 6. History of hypertension. 7. History of heart failure. 8. History of chronic obstructive pulmonary disease. 9. History of facial skin cancers. 10. We will await the pathology report from hip surgery and follow the patient. 11. We will do tumor markers. PSA in the clinic was normal. JOB# [id number] NM/NTS
--- NOTE | 2018-12-29 11:06 | Progress Note ---
Assessment and Plan Pt presented with right hip fx s/p mechanical fall at home, no syncope. He denies any current cardiac complaints. Currently stable cardiac status. Pt is currently at moderate cardiovascular risk for contemplated orthopedic surgery. There are no immediate cardiac contraindications to proceeding with orthopedic surgery at this time. Hold home Eliquis. Otherwise, cont home cardiac regimen. The patient has been seen in conjunction with Dr. Jo who agrees with the assessment and plan of care. - Patient Problems (1) Hip fracture Current Visit: Yes Status: Acute Qualifiers: Encounter type: initial encounter Fracture type: closed Laterality: right Qualified Code(s): S72.001A - Fracture of unspecified part of neck of right femur, initial encounter for closed fracture (2) Nonobstructive atherosclerosis of coronary artery Current Visit: No Status: Chronic (3) Paroxysmal atrial fibrillation Current Visit: No Status: Chronic (4) COPD (chronic obstructive pulmonary disease) Current Visit: No Status: Chronic (5) Hypertension Current Visit: No Status: Chronic Qualifiers: Hypertension type: essential hypertension Qualified Code(s): I10 - Essential (primary) hypertension (6) Hyperlipemia Current Visit: No Status: Chronic Qualifiers: Hyperlipidemia type: Mixed hyperlipidemia (7) Peripheral vascular disease Current Visit: No Status: Chronic Subjective Date of service: 12/29/18 Principal diagnosis: hip fx Interval history: pt resting in bed, no current cardiac complaints. c/o right hip pain. for surgery today. at bedside. Objective Last Vital Signs Temp 98.6 F 12/29/18 07:30 Pulse 95 H 12/29/18 07:30 Resp 18 12/29/18 07:30 BP 131/69 12/29/18 07:30 Pulse Ox 91 12/29/18 07:30 - Physical Examination General: No Apparent Distress HEENT: Positive: PERRL, Normocephaly, Mucus Membranes Moist Neck: Positive: neck supple, trachea midline Cardiac: Positive: Reg Rate and Rhythm, S1/S2 Lungs: Positive: Decreased Breath Sounds Neuro: Positive: Grossly Intact Abdomen: Positive: Soft. Negative: Tender Skin: Negative: Rash Musculoskeletal: other (right hip and RLE pain) Extremities: Absent: edema - Labs and Meds Coagulation 12/28/18 Range/Units 14:51 PT 15.2 H (12.2-14.9) Sec. INR 1.13 (0.87-1.13) APTT 38.9 H (24.2-36.6) Sec. CBC 12/28/18 12/28/18 Range/Units 10:55 14:51 WBC 14.1 H (4.5-11.0) K/mm3 RBC 3.70 (3.65-5.03) M/mm3 Hgb 11.2 L 10.8 L (11.8-15.2) gm/dl Hct 34.6 L 33.2 L (35.5-45.6) % Plt Count 378 406 (140-440) K/mm3 Comprehensive Metabolic Panel 12/28/18 Range/Units 10:55 Sodium 140 (137-145) mmol/L Potassium 4.1 (3.6-5.0) mmol/L Chloride 99.9 (98-107) mmol/L Carbon Dioxide 26 (22-30) mmol/L BUN 18 (9-20) mg/dL Creatinine 0.8 (0.8-1.5) mg/dL Glucose 145 H (75-100) mg/dL Calcium 9.8 (8.4-10.2) mg/dL - Imaging and Cardiology EKG: report reviewed, image reviewed Echo: report reviewed (07/27/2018 showed EF 60-65%, asymmetric septal hypertrophy, mild TR. Echo done 05/2017 showed EF 55-60%, grade 1 diastolic dysfunction, mild TR, RVSP 22mmHg. 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 Treat medically. ) - EKG Sinus rhythms and dysrhythmias: sinus rhythm AV and intraventricular conduction: right bundle branch block
[2018-12-29] MEDS ORDERED: DIPRIVAN 10 MG/ML IV ONE ×2 (11:09→12:53)
[2018-12-29] MEDS ORDERED: SUBLIMAZE ONE (11:09)
[2018-12-29] MEDS ORDERED: ZEMURON IV ONE (11:09)
[2018-12-29] MEDS ORDERED: DECADRON ONE ×2 (11:10→13:42)
[2018-12-29] MEDS ORDERED: ZOFRAN ONE ×2 (11:10→13:42)
[2018-12-29] MEDS ORDERED: TORADOL ONE ×2 (11:10→12:14)
[2018-12-29] MEDS ORDERED: XYLOCAINE MPF 2% ONE (11:10)
--- NOTE | 2018-12-29 11:20 | Progress Note ---
Assessment and Plan Assessment and plan: 73 man who presents sp [facility] fall at home with R hip pain and inability to walk R Hip fracture Sp arthroplasty 12/29 PAF Rate control per cardiology, eliquis on hold Multiple bony lesions, MM vs metastases Oncology input appreciated, check spep and upep, outpatient fup LLL pna Abx COPD HLD Htn Hx of skin cancer of face sp resection History Interval history: Review of systems Constitutional: No fevers, no joint pains CVS: No chest pain, no orthopnea, no dyspnea on exertion, no pedal edema GI: No abdominal pain, no diarrhea, no vomiting, no constipation Respiratory: no wheezing, no coughing Hospitalist Physical - Physical exam Narrative exam: General.: Appears well, no distress, nontoxic HEENT: Moist mucous membranes, extraocular muscles intact, no lymphadenopathy Neck: supple Cardiac: S1-S2 heard Lungs: clear to auscultation bilaterally Abdomen: soft , nontender, nondistended, bowel sounds positive Extremities: no edema clubbing or cyanosis Skin: no rash or lesions Neurologic: no gross focal deficits Psych: calm, and cooperative - Constitutional Vitals: Temp Pulse Resp BP Pulse Ox 98.6 F 95 H 18 131/69 91 12/29/18 07:30 12/29/18 07:30 12/29/18 07:30 12/29/18 07:30 12/29/18 07:30 General appearance: Present: no acute distress Results - Labs CBC & Chem 7: 12/30/18 04:06 12/31/18 04:14 Labs: Laboratory Last Values WBC 14.1 K/mm3 (4.5-11.0) H 12/28/18 10:55 RBC 3.70 M/mm3 (3.65-5.03) 12/28/18 10:55 Hgb 10.8 gm/dl (11.8-15.2) L 12/28/18 14:51 Hct 33.2 % (35.5-45.6) L 12/28/18 14:51 MCV 94 fl (84-94) 12/28/18 10:55 MCH 30 pg (28-32) 12/28/18 10:55 MCHC 32 % (32-34) 12/28/18 10:55 RDW 17.2 % (13.2-15.2) H 12/28/18 10:55 Plt Count 406 K/mm3 (140-440) 12/28/18 14:51 PT 15.2 Sec. (12.2-14.9) H 12/28/18 14:51 INR 1.13 (0.87-1.13) 12/28/18 14:51 APTT 38.9 Sec. (24.2-36.6) H 12/28/18 14:51 Sodium 140 mmol/L (137-145) 12/28/18 10:55 Potassium 4.1 mmol/L (3.6-5.0) 12/28/18 10:55 Chloride 99.9 mmol/L (98-107) 12/28/18 10:55 Carbon Dioxide 26 mmol/L (22-30) 12/28/18 10:55 18 mmol/L 12/28/18 10:55 BUN 18 mg/dL (9-20) 12/28/18 10:55 0.8 mg/dL (0.8-1.5) 12/28/18 10:55 Estimated GFR > 60 ml/min 12/28/18 10:55 23 % 12/28/18 10:55 Glucose 145 mg/dL (75-100) H 12/28/18 10:55 Calcium 9.8 mg/dL (8.4-10.2) 12/28/18 10:55 NT-Pro-B Natriuret Pep 153.7 pg/mL (0-900) 12/28/18 10:55 Yellow (Yellow) 12/28/18 19:00 Clear (Clear) 12/28/18 19:00 5.0 (5.0-7.0) 12/28/18 19:00 Ur Specific [place] 1.045 (1.003-1.030) H 12/28/18 19:00 <15 mg/dl mg/dL (Negative) 12/28/18 19:00 Neg mg/dL (Negative) 12/28/18 19:00 Tr mg/dL (Negative) 12/28/18 19:00 Neg (Negative) 12/28/18 19:00 Neg (Negative) 12/28/18 19:00 Neg (Negative) 12/28/18 19:00 < 2.0 mg/dL (<2.0) 12/28/18 19:00 Ur Leukocyte Esterase Tr (Negative) 12/28/18 19:00 6.0 /HPF (0.0-6.0) 12/28/18 19:00 2.0 /HPF (0.0-6.0) 12/28/18 19:00 U Epithel Cells (Auto) < 1.0 /HPF (0-13.0) 12/28/18 19:00 2+ /HPF 12/28/18 19:00 Active Medications - Current Medications Current Medications: Generic Name Dose Route Start Last Admin Trade Name Freq PRN Reason Stop Dose Admin Acetaminophen 650 mg 12/28/18 11:41 Tylenol PO Q4H PRN Pain MILD(1-3)/Fever >100.5/SKINNER Arformoterol Tartrate 15 mcg 12/28/18 20:00 12/28/18 21:27 Brovana Nebu IH 15 mcg Q12HRT [facility] Administration Budesonide 0.5 mg 12/28/18 20:00 12/28/18 21:27 Pulmicort IH 0.5 mg Q12HRT [facility] Administration Cyclobenzaprine HCl 5 mg 12/28/18 14:37 Flexeril PO Q8H PRN Muscle Spasm Famotidine 20 mg 12/28/18 22:00 12/29/18 10:34 Pepcid PO Not Given BID [facility] Famotidine 20 mg 12/28/18 22:00 Pepcid PO HS [facility] [place] Ceftriaxone Sodium 1 gm in 50 mls @ 100 mls/hr 12/28/18 12:00 12/28/18 16:39 Rocephin/Ns 1 Gm/50 Ml IV Infused Q24HR [facility] Infusion Protocol Heparin Sodium/Sodium Chloride 25,000 unit in 500 mls @ 24 mls/hr 12/28/18 14:00 Heparin/ 0.45% Nacl-25,000 Unit/500 Ml IV TITR [facility]NA[facility] Protocol 1,200 UNITS/HR Levalbuterol HCl 0.63 mg 12/28/18 14:00 12/28/18 22:22 Xopenex IH Not Given TIDRT [facility] [place] Metoprolol Succinate 25 mg 12/29/18 10:00 12/29/18 10:34 Toprol Xl PO Not Given QDAY [facility] Morphine Sulfate 2 mg 12/28/18 11:41 12/28/18 20:29 Morphine IV 2 mg Q4H PRN Administration Pain, Moderate (4-6) Ondansetron HCl 4 mg 12/28/18 11:41 12/28/18 16:49 Zofran IV 4 mg Q8H PRN Administration Nausea And Vomiting Oxycodone/Acetaminophen 1 tab 12/28/18 11:41 12/28/18 21:19 Percocet 5/325 PO 1 tab Q6H PRN Administration Pain, Moderate (4-6) Polyethylene Glycol 17 gm 12/29/18 10:00 12/29/18 10:34 Miralax 3350 PO Not Given QDAY [facility] Pravastatin Sodium 40 mg 12/28/18 22:00 12/28/18 21:17 Pravachol PO 40 mg HS [facility] Administration Quetiapine Fumarate 100 mg 12/28/18 22:00 12/28/18 21:17 Seroquel PO 100 mg HS [facility] Administration Sodium Chloride 10 ml 12/28/18 22:00 12/28/18 21:23 Sodium Chloride Flush Syringe 10 Ml IV 10 ml BID [facility] Administration Sodium Chloride 10 ml 12/28/18 11:41 Sodium Chloride Flush Syringe 10 Ml IV PRN PRN LINE FLUSH Tamsulosin HCl 0.4 mg 12/29/18 08:00 12/29/18 10:34 Flomax PO Not Given QDAY@0800 [facility] Tramadol HCl 50 mg 12/28/18 13:10 Ultram PO Q6HR PRN Pain
[2018-12-29] MEDS ORDERED: MARCAINE 0.5% INFILTRATI ONE ×2 (12:13→12:29)
[2018-12-29] MEDS ORDERED: TRANEXAMIC ACID ONE (12:14)
[2018-12-29] MEDS ORDERED: MORPHINE ONE (12:14)
[2018-12-29] MEDS ORDERED: NACL 0.9% 100 ML ONE (12:15)
[2018-12-29] MEDS ORDERED: NACL 0.9% 1000 ML 1,000 ML ONE (12:17)
[2018-12-29] MEDS ORDERED: WATER FOR IRRIG STERILE IR ONE (12:29)
[2018-12-29] MEDS ORDERED: NACL 0.9% IV ONE (12:29)
[2018-12-29] MEDS ORDERED: MORPHINE IM ONE (12:29)
[2018-12-29] MEDS ORDERED: TORADOL IM ONE (12:29)
[2018-12-29] MEDS ORDERED: TRANEXAMIC ACID IV ONE (12:29)
[2018-12-29] MEDS ORDERED: NACL 0.9% IR ONE ×2 (12:29)
[2018-12-29] MEDS ORDERED: ACD-A 500 ML IV ONE (13:07)
[2018-12-29] MEDS ORDERED: NEO SYNEPHRINE ONE (13:16)
[2018-12-29] MEDS ORDERED: MORPHINE IV PRN (14:10)
--- NOTE | 2018-12-29 14:18 | Procedure Note ---
Date of procedure: 12/29/18 Pre-op diagnosis: displaced right femoral neck fracture Post-op diagnosis: same Procedure: Right Bipolar Hemiarthroplasty Procedure The patient was brought to the OR and placed on the OR table in supine position following induction and intubation by anesthesia the patient was placed in the left lateral decubitus position The right hip was then prepped and draped in the usual sterile manner a timeout procedure was done to identify the patient and the correct operative site. Next a lateral incision was made along the proximal femur was taken down sharply through skin and subcutaneous the fascia otto was seen and incised. A Charnley retractor was placed deep within the wound next the anterior capsule was entered the femoral neck fracture was seen the remaining portion of the femoral neck was then osteotomized in line with a stem template The femoral head was retrieved using a corkscrew device measuring the size of the femoral head and a 55 mm diameter was chosen, followed by reaming and broaching to a #5 stem utilizing a neutral neck and a 28 mm head and the construct was then reduced the hip was taken through a range of motion and was found to be stable. All components were removed. Final components were assembled and inserted the hip was then reduced and taken through a range of motion and again it was found to be stable next the wound was copiously irrigated a cocktail mixture of Toradol and morphine. Again and saline was injected into the surrounding soft tissue for postop pain management following this the wound was closed in a standard routine fashion. Dressings were applied the patient tolerated the procedure there were no complications and he was sent to post anesthesia recovery Anesthesia: ALBERT Surgeon: DERRICK VICENTE [employer] Inspector: DENISSE REYES Estimated blood loss: other (300 mL) Pathology: list (right femoral head and neck) Specimen disposition: to lab Condition: stable Disposition: PACU
[2018-12-29] MEDS: XOPENEX IH SCH ×4 (14:45→20:41)
--- NOTE | 2018-12-29 14:48 | Progress Note ---
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 Elevated D-dimer. Peripheral vascular disease. Abnormal CT chest - continue bronchodilators with pulmonary hygiene per RT - continue supplemental oxygen to keep sats >/= 90% - PT/OT exercises as tolerated - continue aspiration precautions - continue stress ulcer prophylaxis - continue other care per attending / other consultants - d/c planning ongoing .... re-evaluate in am & prn FULL CODE STATUS Subjective Date of service: 12/29/18 Principal diagnosis: Ac on Ch hypoxemic resp failure; R. Hip Fracture; A-fib; AE-COPD Interval history: Patient is seen today for: Acute on Chronic hypoxemic respiratory failure; Right Hip Fracture; H/O A-fib; AE-COPD; H/O DVT; Peripheral vascular disease; Abnormal CT chest Seen and examined at bedside; 24hour events reviewed; nursing and respiratory care staff consulted; no adverse overnight events reported to me; resting peacefully in bed; in good spirits; denies acute chest pains or palpitations; No N/V/F/C Objective Vital Signs - 12hr 12/29/18 12/29/18 04:45 07:30 Temperature 98.1 F 98.6 F Pulse Rate 89 95 H Respiratory 20 18 Rate Blood Pressure 139/74 131/69 O2 Sat by Pulse 92 91 Oximetry Constitutional: no acute distress, alert Eyes: non-icteric ENT: oropharynx moist Neck: supple, no JVD Ascultation: Bilateral: diminished breath sounds Percussion: Bilateral: not dull Cardiovascular: irregular rhythm Gastrointestinal: normoactive bowel sounds, soft, non-tender Integumentary: normal Extremities: no cyanosis, no edema Neurologic: normal mental status, pupils equal and round Psychiatric: mood appropriate CBC and BMP: 01/04/19 11:01 01/04/19 11:01 ABG, PT/INR, D-dimer: PT/INR, D-dimer PT 15.2 Sec. (12.2-14.9) H 12/28/18 14:51 INR 1.13 (0.87-1.13) 12/28/18 14:51 Abnormal lab findings: Abnormal Labs 12/28/18 12/28/18 12/28/18 10:55 10:55 14:51 WBC 14.1 H Hgb 11.2 L 10.8 L Hct 34.6 L 33.2 L RDW 17.2 H PT APTT Glucose 145 H Ur Specific [place] 12/28/18 12/28/18 14:51 19:00 WBC Hgb Hct RDW PT 15.2 H APTT 38.9 H Glucose Ur Specific [place] 1.045 H Chest x-ray: image reviewed (RLL infiltrate with chronic component) Allied health notes reviewed: nursing
[2018-12-29] MEDS ORDERED: SODIUM CHLORIDE FLUSH SYRINGE 10 ML IV NR (15:00)
[2018-12-29] MEDS: BROVANA NEBU IH SCH ×2 (16:01→20:41)
[2018-12-29] MEDS: PULMICORT IH SCH ×2 (16:01→20:41)
[2018-12-29] MEDS: ROCEPHIN/NS 1 GM/50 ML 1 GM/50 ML BAG IV SCH (16:38)
[2018-12-29] MEDS: NACL 0.9% 1000 ML 1,000 ML IV SCH (16:39)
[2018-12-29] MEDS: SODIUM CHLORIDE FLUSH SYRINGE 10 ML IV SCH (17:07)
--- NOTE | 2018-12-29 17:31 | Anesthesia Day of Surgery ---
Anesthesia Day of Surgery - Day of Surgery Patient Examined: Yes Patient H&P Reviewed: Yes Patient is NPO: Yes
--- NOTE | 2018-12-29 17:31 | Anesthesia Consultation ---
Anesthesia Consult and Med Hx - Airway Anesthetic Teeth Evaluation: Poor ROM Head & Neck: Adequate Mental/Hyoid Distance: Adequate Mallampati Class: Class II Intubation Access Assessment: Good - Pulmonary Exam CTA: Yes - Cardiac Exam Cardiac Exam: RRR - Pre-Operative Health Status ASA Pre-Surgery Classification: ASA3 Proposed Anesthetic Plan: General - Pulmonary Hx Smoking: Yes (Quit 2011) Hx Asthma: No Hx Respiratory Symptoms: No SOB: Yes COPD: Yes Hx Pneumonia: Yes (03/2014, currently also, per POA) Hx Sleep Apnea: No - Cardiovascular System Hx Hypertension: Yes Hx Coronary Artery Disease: No Hx Heart Attack/AMI: No Hx Angina: No Hx Percutaneous Transluminal Coronary Angioplasty (PTCA): No Hx Cardia Arrhythmia: No Hx Pacemaker: No Hx Internal Defibrillator: No Hx Valvular Heart Disease: Yes (moderate TR) Hx Heart Murmur: No Hx Peripheral Vascular Disease: Yes (lower extremities) - Central Nervous System Hx Neuromuscular Disorder: No Hx Seizures: No CVA: No Hx Back Pain: No Hx Psychiatric Problems: No - Gastrointestinal Hx Ulcer: No Hx Gastroesophageal Reflux Disease: Yes (food related) - Endocrine Hx Renal Disease: No Hx End Stage Renal Disease: No Hx Cirrhosis: No Hx Liver Disease: No Hx Insulin Dependent Diabetes: No Hx Non-Insulin Dependent Diabetes: No Hx Thyroid Disease: No Hx Hypothyroidism: No Hx Hyperthyroidism: No - Hematic Hx Anemia: No Hx Sickle Cell Disease: No - Other Systems Hx Alcohol Use: Yes Hx Substance Use: No Hx Cancer: Yes (SKIN(FACE,CHIN, NECK, NOSE, ARMS) REMOVED) Hx Obesity: No
--- NOTE | 2018-12-29 17:31 | Post Anesthesia Evaluation ---
- Post Anesthesia Evaluation Patient Participated: Yes Airway Patent: Yes Stable Respiratory Function: Yes Nausea/Vomiting: No Temp > 96.8F: Yes Pain Manageable: Yes Adequeate Hydration: Yes Anesthesia Complications: No Block Receding Appropriately: Not Applicable Patient on Ventilator: Yes
[2018-12-29] MEDS: PRAVACHOL PO SCH (22:57)
[2018-12-30 05:48] LABS: Hematocrit 32.2 % (35.5-45.6); Hemoglobin 10.4 gm/dl (11.8-15.2)
[2018-12-30] MEDS: NACL 0.9% 1000 ML 1,000 ML IV SCH (06:05)
[2018-12-30] MEDS: SODIUM CHLORIDE FLUSH SYRINGE 10 ML IV SCH (06:08)
--- NOTE | 2018-12-30 07:44 | Hem/Onc Progress Note ---
Assessment and Plan Bone lesions. Radiologist suggests metastatic disease versus myeloma. There are no lesions in liver, kidneys, or pancreas. 1. Hilar lymph node present, lung opacity present. 2. For hip fracture, surgery planned. 3. myeloma investigation. 4. Mild anemia. 5. anticoagulation with Eliquis for atrial fibrillation issues. 6. History of hypertension. 7. History of heart failure. 8. History of chronic obstructive pulmonary disease. 9. History of facial skin cancers. 10. We will await the pathology report from hip surgery and follow the patient. 11. tumor markers. PSA in the clinic was normal. 12/30 - s/p rt hip sx - Patient Problems (1) Lytic bone lesions on xray Current Visit: Yes Status: Acute Subjective Date of service: 12/30/18 Principal diagnosis: bone mets - hip fracture Interval history: s/p sx rt hip Objective - Constitutional Vitals: Last Vital Signs Temp 98.5 F 12/30/18 04:34 Pulse 83 12/30/18 04:34 Resp 18 12/30/18 04:34 BP 124/70 12/30/18 04:34 Pulse Ox 92 12/30/18 04:34 Pain Intensity (0-10): 1/10 (due to sx) General appearance: no acute distress Performance status: 3-limited selfcare - EENT Eyes: PERRL, EOM intact ENT: clear oral mucosa Lymph node exam: negative cervical - Neck Neck: normal ROM - Respiratory Respiratory effort: Positive: normal Respiratory: bilateral: diminished - Cardiovascular Heart Sounds: Present: S1 & S2 Extremities: No edema, normal temperature - Gastrointestinal General gastrointestinal: Present: soft, non-tender Rectal Exam: deferred - Genitourinary Male genitourinary: Present: deferred - Integumentary Integumentary: warm - Musculoskeletal Musculoskeletal: other (s/p rt hip sx) - Neurologic Neurologic: other (AAOx3) - Labs Lab Results: Laboratory Results - last 24 hr 12/30/18 04:06 Hgb 10.4 L Hct 32.2 L Plt Count 349 Medications & Allergies - Medications Allergies/Adverse Reactions: Allergies No Known Allergies Allergy (Verified 12/12/13 06:46) Home Medications: Home Medications Medication Instructions Recorded Confirmed Last Taken Type RX: Apixaban [Eliquis] 5 mg PO Q12HR #60 tablet 09/20/18 12/28/18 Unknown Rx RX: Arformoterol Nebu [Brovana 15 mcg IH Q12HRT 30 Days #30 ml 09/20/18 12/28/18 Unknown Rx Nebu] RX: Aspirin [Aspirin BABY CHEW TAB] 81 mg PO DAILY #30 09/20/18 12/28/18 07/27/18 Rx RX: Budesonide [Pulmicort Respules] 0.5 mg IH Q12HRT 30 Days nebu 09/20/18 12/28/18 Unknown Rx Cyclobenzaprine HCl [Flexeril 5 MG 5 mg PO TID PRN 12/28/18 12/28/18 Unknown History TAB] Famotidine [Pepcid] 20 mg PO HS 12/28/18 12/28/18 Unknown History Metoprolol Xl [Metoprolol 25 mg PO QDAY 12/28/18 12/28/18 Unknown History SUCCINATE ER TAB] RX: Diclofenac 1% [Diclofenac 1% 1 applic TP DAILY 12/28/18 12/28/18 Unknown History topical gel] oxyCODONE /ACETAMINOPHEN [Percocet 1 tab PO Q6HR PRN 12/28/18 12/28/18 Unknown History 5/325] traMADol [Ultram] 50 mg PO Q6HR PRN 12/28/18 12/28/18 Unknown History Active Medications: Generic Name Dose Route Start Last Admin Trade Name Freq PRN Reason Stop Dose Admin Acetaminophen 650 mg 12/28/18 11:41 Tylenol PO Q4H PRN Pain MILD(1-3)/Fever >100.5/SKINNER Arformoterol Tartrate 15 mcg 12/28/18 20:00 12/29/18 20:41 Brovana Nebu IH Not Given Q12HRT IGNACIO Budesonide 0.5 mg 12/28/18 20:00 12/29/18 20:41 Pulmicort IH Not Given Q12HRT IGNACIO Cyclobenzaprine HCl 5 mg 12/28/18 14:37 Flexeril PO Q8H PRN Muscle Spasm Enoxaparin Sodium 40 mg 12/30/18 10:00 Lovenox SUB-Q QDAY IGNACIO Famotidine 20 mg 12/28/18 22:00 12/29/18 23:52 Pepcid PO Not Given BID IGNACIO Famotidine 20 mg 12/28/18 22:00 05/16/19 23:44 Pepcid PO Not Given HS [facility] Ceftriaxone Sodium 1 gm in 50 mls @ 100 mls/hr 12/28/18 12:00 12/29/18 23:54 Rocephin/Ns 1 Gm/50 Ml IV Infused Q24HR IGNACIO Infusion Protocol Sodium Chloride 1,000 mls @ 100 mls/hr 12/29/18 12:30 12/30/18 06:05 Nacl 0.9% 1000 Ml IV 100 mls/hr DIRECT IGNACIO Administration Levalbuterol HCl 0.63 mg 12/28/18 14:00 12/29/18 20:41 Xopenex IH Not Given TIDRT IGNACIO Metoprolol Succinate 25 mg 12/29/18 10:00 12/29/18 10:34 Toprol Xl PO Not Given QDAY [facility] Morphine Sulfate 2 mg 12/28/18 11:41 12/28/18 20:29 Morphine IV 2 mg Q4H PRN Administration Pain, Moderate (4-6) Morphine Sulfate 4 mg 12/29/18 14:10 Morphine IV Q4H PRN Pain , Severe (7-10) Ondansetron HCl 4 mg 12/28/18 11:41 12/28/18 16:49 Zofran IV 4 mg Q8H PRN Administration Nausea And Vomiting Oxycodone/Acetaminophen 1 tab 12/28/18 11:41 12/28/18 21:19 Percocet 5/325 PO 1 tab Q6H PRN Administration Pain, Moderate (4-6) Oxycodone/Acetaminophen 1 tab 12/29/18 14:10 Percocet 5/325 PO Q6H PRN Pain, Moderate (4-6) Polyethylene Glycol 17 gm 12/29/18 10:00 12/29/18 10:34 Miralax 3350 PO Not Given QDAY IGNACIO Pravastatin Sodium 40 mg 12/28/18 22:00 12/29/18 22:57 Pravachol PO Not Given HS [facility] Quetiapine Fumarate 100 mg 12/28/18 22:00 12/29/18 22:58 Seroquel PO Not Given HS [facility] Sodium Chloride 10 ml 12/28/18 22:00 12/30/18 06:08 Sodium Chloride Flush Syringe 10 Ml IV 10 ml BID IGNACIO Administration Sodium Chloride 10 ml 12/28/18 11:41 Sodium Chloride Flush Syringe 10 Ml IV PRN PRN LINE FLUSH Sodium Chloride 10 ml 12/29/18 15:00 Sodium Chloride Flush Syringe 10 Ml IV 12/30/18 14:59 PRN NR Tamsulosin HCl 0.4 mg 12/29/18 08:00 12/29/18 10:34 Flomax PO Not Given QDAY@0800 [facility]NA[facility] Tramadol HCl 50 mg 12/28/18 13:10 Ultram PO Q6HR PRN Pain
[2018-12-30] MEDS: ROCEPHIN/NS 1 GM/50 ML 1 GM/50 ML BAG IV SCH (09:18)
[2018-12-30] MEDS: LOVENOX SUB-Q SCH (09:18)
[2018-12-30] MEDS: FLOMAX PO SCH (09:18)
[2018-12-30] MEDS: PERCOCET 5/325 PO PRN (09:19)
[2018-12-30] MEDS: TOPROL XL PO SCH (09:19)
[2018-12-30] MEDS: MIRALAX 3350 PO SCH (09:20)
[2018-12-30] MEDS: BROVANA NEBU IH SCH ×2 (09:58→19:31)
[2018-12-30] MEDS: XOPENEX IH SCH ×3 (09:59→20:13)
[2018-12-30] MEDS: PULMICORT IH SCH ×2 (09:59→19:31)
--- NOTE | 2018-12-30 10:13 | Progress Note ---
Assessment and Plan Pt s/p hip surgery. Currently stable cardiac status. Resume home Eliquis if/when okay per orthopedic surgery. Cont all other home cardiac regimen. F/u heme/onc recs. Nothing further to add from cardiac perspective at this time. Will sign off. Recommend follow up in our office with Dr. Bender within 1-2 weeks of hospital discharge ([phone]). The patient has been seen in conjunction with Dr. Jo who agrees with the assessment and plan of care. - Patient Problems (1) Hip fracture Current Visit: Yes Status: Acute Qualifiers: Encounter type: initial encounter Fracture type: closed Laterality: right Qualified Code(s): S72.001A - Fracture of unspecified part of neck of right femur, initial encounter for closed fracture (2) Bone lesion Current Visit: Yes Status: Acute (3) Nonobstructive atherosclerosis of coronary artery Current Visit: No Status: Chronic (4) Paroxysmal atrial fibrillation Current Visit: No Status: Chronic (5) COPD (chronic obstructive pulmonary disease) Current Visit: No Status: Chronic (6) Hypertension Current Visit: No Status: Chronic Qualifiers: Hypertension type: essential hypertension Qualified Code(s): I10 - Essential (primary) hypertension (7) Hyperlipemia Current Visit: No Status: Chronic Qualifiers: Hyperlipidemia type: Mixed hyperlipidemia (8) Peripheral vascular disease Current Visit: No Status: Chronic Subjective Date of service: 12/30/18 Principal diagnosis: bone mets - hip fracture Interval history: pt resting in bed, no current cardiac complaints. s/p hip surgery yesterday. at bedside. Objective Last Vital Signs Temp 98.4 F 12/30/18 07:34 Pulse 92 H 12/30/18 07:34 Resp 18 12/30/18 07:34 BP 140/71 12/30/18 07:33 Pulse Ox 86 12/30/18 07:34 - Physical Examination General: No Apparent Distress HEENT: Positive: PERRL, Normocephaly, Mucus Membranes Moist Neck: Positive: neck supple, trachea midline Cardiac: Positive: Reg Rate and Rhythm, S1/S2 Lungs: Positive: Decreased Breath Sounds Neuro: Positive: Grossly Intact Abdomen: Positive: Soft. Negative: Tender Skin: Negative: Rash Musculoskeletal: other (right hip and RLE pain) Extremities: Absent: edema - Labs and Meds CBC 12/30/18 Range/Units 04:06 Hgb 10.4 L (11.8-15.2) gm/dl Hct 32.2 L (35.5-45.6) % Plt Count 349 (140-440) K/mm3 - Imaging and Cardiology EKG: report reviewed, image reviewed Echo: report reviewed (07/27/2018 showed EF 60-65%, asymmetric septal hypertrophy, mild TR. Echo done 05/2017 showed EF 55-60%, grade 1 diastolic dysfunction, mild TR, RVSP 22mmHg. 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 Treat medically. ) - EKG Sinus rhythms and dysrhythmias: sinus rhythm AV and intraventricular conduction: right bundle branch block
[2018-12-30] MEDS: DICLOFENAC 1% TP SCH (10:53)
[2018-12-30] MEDS: PEPCID PO SCH ×2 (10:59→22:28)
[2018-12-30] MEDS: MORPHINE IV PRN ×2 (11:41→20:26)
--- NOTE | 2018-12-30 11:54 | Progress Note ---
Assessment and Plan Assessment and plan: 73 man who presents sp [facility] fall at home with R hip pain and inability to walk R Hip fracture Sp arthroplasty 12/29 PAF Rate control per cardiology, eliquis on hold Multiple bony lesions, MM vs metastases Oncology input appreciated, check spep and upep, outpatient fup LLL pna Abx COPD HLD Htn Hx of skin cancer of face sp resection DVt ppx lovenox History Interval history: Review of systems Constitutional: No fevers, no joint pains CVS: No chest pain, no orthopnea, no dyspnea on exertion, no pedal edema GI: No abdominal pain, no diarrhea, no vomiting, no constipation Respiratory: no wheezing, no coughing Hospitalist Physical - Physical exam Narrative exam: General.: Appears well, no distress, nontoxic HEENT: Moist mucous membranes, extraocular muscles intact, no lymphadenopathy Neck: supple Cardiac: S1-S2 heard Lungs: clear to auscultation bilaterally Abdomen: soft , nontender, nondistended, bowel sounds positive Extremities: no edema clubbing or cyanosis Skin: no rash or lesions Neurologic: no gross focal deficits Psych: calm, and cooperative - Constitutional Vitals: Temp Pulse Resp BP Pulse Ox 98.4 F 92 H 18 140/71 86 12/30/18 07:34 12/30/18 07:34 12/30/18 07:34 12/30/18 07:33 12/30/18 07:34 General appearance: Present: no acute distress Results - Labs CBC & Chem 7: 01/01/19 04:39 12/31/18 04:14 Labs: Laboratory Last Values WBC 14.1 K/mm3 (4.5-11.0) H 12/28/18 10:55 RBC 3.70 M/mm3 (3.65-5.03) 12/28/18 10:55 Hgb 10.4 gm/dl (11.8-15.2) L 12/30/18 04:06 Hct 32.2 % (35.5-45.6) L 12/30/18 04:06 MCV 94 fl (84-94) 12/28/18 10:55 MCH 30 pg (28-32) 12/28/18 10:55 MCHC 32 % (32-34) 12/28/18 10:55 RDW 17.2 % (13.2-15.2) H 12/28/18 10:55 Plt Count 349 K/mm3 (140-440) 12/30/18 04:06 PT 15.2 Sec. (12.2-14.9) H 12/28/18 14:51 INR 1.13 (0.87-1.13) 12/28/18 14:51 APTT 38.9 Sec. (24.2-36.6) H 12/28/18 14:51 Sodium 140 mmol/L (137-145) 12/28/18 10:55 Potassium 4.1 mmol/L (3.6-5.0) 12/28/18 10:55 Chloride 99.9 mmol/L (98-107) 12/28/18 10:55 Carbon Dioxide 26 mmol/L (22-30) 12/28/18 10:55 18 mmol/L 12/28/18 10:55 BUN 18 mg/dL (9-20) 12/28/18 10:55 0.8 mg/dL (0.8-1.5) 12/28/18 10:55 Estimated GFR > 60 ml/min 12/28/18 10:55 23 % 12/28/18 10:55 Glucose 145 mg/dL (75-100) H 12/28/18 10:55 Calcium 9.8 mg/dL (8.4-10.2) 12/28/18 10:55 NT-Pro-B Natriuret Pep 153.7 pg/mL (0-900) 12/28/18 10:55 Yellow (Yellow) 12/28/18 19:00 Clear (Clear) 12/28/18 19:00 5.0 (5.0-7.0) 12/28/18 19:00 Ur Specific [place] 1.045 (1.003-1.030) H 12/28/18 19:00 <15 mg/dl mg/dL (Negative) 12/28/18 19:00 Neg mg/dL (Negative) 12/28/18 19:00 Tr mg/dL (Negative) 12/28/18 19:00 Neg (Negative) 12/28/18 19:00 Neg (Negative) 12/28/18 19:00 Neg (Negative) 12/28/18 19:00 < 2.0 mg/dL (<2.0) 12/28/18 19:00 Ur Leukocyte Esterase Tr (Negative) 12/28/18 19:00 6.0 /HPF (0.0-6.0) 12/28/18 19:00 2.0 /HPF (0.0-6.0) 12/28/18 19:00 U Epithel Cells (Auto) < 1.0 /HPF (0-13.0) 12/28/18 19:00 2+ /HPF 12/28/18 19:00 Active Medications - Current Medications Current Medications: Generic Name Dose Route Start Last Admin Trade Name Freq PRN Reason Stop Dose Admin Acetaminophen 650 mg 12/28/18 11:41 Tylenol PO Q4H PRN Pain MILD(1-3)/Fever >100.5/SKINNER Arformoterol Tartrate 15 mcg 12/28/18 20:00 12/30/18 09:58 Brovana Nebu IH Not Given Q12HRT IGNACIO Budesonide 0.5 mg 12/28/18 20:00 12/30/18 09:59 Pulmicort IH Not Given Q12HRT [facility]NA[facility]IO Cyclobenzaprine HCl 5 mg 12/28/18 14:37 Flexeril PO Q8H PRN Muscle Spasm Enoxaparin Sodium 40 mg 12/30/18 10:00 12/30/18 09:18 Lovenox SUB-Q 40 mg QDAY IGNACIO Administration Famotidine 20 mg 12/28/18 22:00 12/29/18 23:52 Pepcid PO Not Given BID IGNACIO Famotidine 20 mg 12/28/18 22:00 12/29/18 23:44 Pepcid PO Not Given HS [facility] Ceftriaxone Sodium 1 gm in 50 mls @ 100 mls/hr 12/28/18 12:00 12/30/18 09:18 Rocephin/Ns 1 Gm/50 Ml IV 100 mls/hr Q24HR IGNACIO Administration Protocol Sodium Chloride 1,000 mls @ 100 mls/hr 12/29/18 12:30 12/30/18 06:05 Nacl 0.9% 1000 Ml IV 100 mls/hr DIRECT IGNACIO Administration Levalbuterol HCl 0.63 mg 12/28/18 14:00 12/30/18 09:59 Xopenex IH Not Given TIDRT IGNACIO Metoprolol Succinate 25 mg 12/29/18 10:00 12/30/18 09:19 Toprol Xl PO 25 mg QDAY IGNACIO Administration Morphine Sulfate 2 mg 12/28/18 11:41 12/30/18 11:41 Morphine IV 2 mg Q4H PRN Administration Pain, Moderate (4-6) Morphine Sulfate 4 mg 12/29/18 14:10 Morphine IV Q4H PRN Pain , Severe (7-10) Ondansetron HCl 4 mg 12/28/18 11:41 12/28/18 16:49 Zofran IV 4 mg Q8H PRN Administration Nausea And Vomiting Oxycodone/Acetaminophen 1 tab 12/28/18 11:41 12/30/18 09:19 Percocet 5/325 PO 1 tab Q6H PRN Administration Pain, Moderate (4-6) Oxycodone/Acetaminophen 1 tab 12/29/18 14:10 Percocet 5/325 PO Q6H PRN Pain, Moderate (4-6) Polyethylene Glycol 17 gm 12/29/18 10:00 12/30/18 09:20 Miralax 3350 PO 17 gm QDAY IGNACIO Administration Pravastatin Sodium 40 mg 12/28/18 22:00 12/29/18 22:57 Pravachol PO Not Given HS IGNACIO Quetiapine Fumarate 100 mg 12/28/18 22:00 12/29/18 22:58 Seroquel PO Not Given HS [facility] Sodium Chloride 10 ml 12/28/18 22:00 12/30/18 06:08 Sodium Chloride Flush Syringe 10 Ml IV 10 ml BID IGNACIO Administration Sodium Chloride 10 ml 12/28/18 11:41 Sodium Chloride Flush Syringe 10 Ml IV PRN PRN LINE FLUSH Sodium Chloride 10 ml 12/29/18 15:00 Sodium Chloride Flush Syringe 10 Ml IV 12/30/18 14:59 PRN NR Tamsulosin HCl 0.4 mg 12/29/18 08:00 12/30/18 09:18 Flomax PO 0.4 mg QDAY@0800 IGNACIO Administration Tramadol HCl 50 mg 12/28/18 13:10 Ultram PO Q6HR PRN Pain
--- NOTE | 2018-12-30 15:15 | Progress Note ---
Assessment and Plan s/p bipolar hip replacement doing well continue PT and observation Subjective Date of service: 12/30/18 Principal diagnosis: bone mets - hip fracture Interval history: no c/o's noted doing well resting comfortably in bed PT started... Objective Vital signs: Vital Signs - 12hr 12/30/18 12/30/18 12/30/18 04:34 04:35 07:33 Temperature 98.5 F Pulse Rate 83 85 89 Pulse Rate [ Anterior Upper Lobe] Respiratory 18 Rate Respiratory Rate [Anterior Upper Lobe] Blood Pressure 124/70 140/71 Blood Pressure [Right] O2 Sat by Pulse 92 90 86 Oximetry 12/30/18 12/30/18 12/30/18 07:34 12:00 12:14 Temperature 98.4 F 98 F Pulse Rate 92 H 91 H 88 Pulse Rate [ Anterior Upper Lobe] Respiratory 18 18 Rate Respiratory Rate [Anterior Upper Lobe] Blood Pressure Blood Pressure 106/63 [Right] O2 Sat by Pulse 86 96 Oximetry 12/30/18 12/30/18 12/30/18 13:29 13:30 13:46 Temperature Pulse Rate Pulse Rate [ 89 90 Anterior Upper Lobe] Respiratory Rate Respiratory 18 16 Rate [Anterior Upper Lobe] Blood Pressure Blood Pressure [Right] O2 Sat by Pulse 92 Oximetry Incision: clean and dry Weight bearing status: as tolerated - Labs CBC & BMP: 12/30/18 04:06 12/28/18 10:55 Labs: Abnormal lab results 12/30/18 Range/Units 04:06 Hgb 10.4 L (11.8-15.2) gm/dl Hct 32.2 L (35.5-45.6) %
--- NOTE | 2018-12-30 15:45 | Progress Note ---
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 Elevated D-dimer. Peripheral vascular disease. Abnormal CT chest - oncology evaluation ongoing re: ? metastatic disease / pathologic fracture - outpatient pulmonary clinic f/up post discharge - continue bronchodilators with pulmonary hygiene per RT - continue supplemental oxygen to keep sats >/= 90% - PT/OT exercises as tolerated - continue aspiration precautions - continue stress ulcer prophylaxis - continue other care per attending / other consultants - d/c planning ongoing .... re-evaluate in am & prn FULL CODE STATUS Subjective Date of service: 12/30/18 Principal diagnosis: Ac on Ch hypoxemic resp failure; R. Hip Fracture; A-fib; AE-COPD Interval history: Patient is seen today for: Acute on Chronic hypoxemic respiratory failure; Right Hip Fracture; H/O A-fib; AE-COPD; H/O DVT; Peripheral vascular disease; Abnormal CT chest Seen and examined at bedside; 24hour events reviewed; nursing and respiratory care staff consulted; no adverse overnight events reported to me; resting peacefully in bed; in good spirits; denies acute chest pains or palpitations; No N/V/F/C Objective Vital Signs - 12hr 12/30/18 12/30/18 12/30/18 04:34 04:35 07:33 Temperature 98.5 F Pulse Rate 83 85 89 Pulse Rate [ Anterior Upper Lobe] Respiratory 18 Rate Respiratory Rate [Anterior Upper Lobe] Blood Pressure 124/70 140/71 Blood Pressure [Right] O2 Sat by Pulse 92 90 86 Oximetry 12/30/18 12/30/18 12/30/18 07:34 12:00 12:14 Temperature 98.4 F 98 F Pulse Rate 92 H 91 H 88 Pulse Rate [ Anterior Upper Lobe] Respiratory 18 18 Rate Respiratory Rate [Anterior Upper Lobe] Blood Pressure Blood Pressure 106/63 [Right] O2 Sat by Pulse 86 96 Oximetry 12/30/18 12/30/18 12/30/18 13:29 13:30 13:46 Temperature Pulse Rate Pulse Rate [ 89 90 Anterior Upper Lobe] Respiratory Rate Respiratory 18 16 Rate [Anterior Upper Lobe] Blood Pressure Blood Pressure [Right] O2 Sat by Pulse 92 Oximetry Constitutional: no acute distress, alert Eyes: non-icteric ENT: oropharynx moist Neck: supple, no JVD Ascultation: Bilateral: diminished breath sounds Cardiovascular: irregular rhythm Gastrointestinal: normoactive bowel sounds, soft, non-tender Integumentary: normal Extremities: no cyanosis, no edema Neurologic: normal mental status, pupils equal and round Psychiatric: mood appropriate CBC and BMP: 01/04/19 11:01 01/04/19 11:01 ABG, PT/INR, D-dimer: PT/INR, D-dimer PT 15.2 Sec. (12.2-14.9) H 12/28/18 14:51 INR 1.13 (0.87-1.13) 12/28/18 14:51 Abnormal lab findings: Abnormal Labs 12/28/18 12/28/18 12/28/18 10:55 10:55 14:51 WBC 14.1 H Hgb 11.2 L 10.8 L Hct 34.6 L 33.2 L RDW 17.2 H PT APTT Glucose 145 H Ur Specific [place] 12/28/18 12/28/18 12/30/18 14:51 19:00 04:06 WBC Hgb 10.4 L Hct 32.2 L RDW PT 15.2 H APTT 38.9 H Glucose Ur Specific [place] 1.045 H
[2018-12-30] MEDS: PRAVACHOL PO SCH (22:28)
[2018-12-31 05:23] LABS: Alanine Aminotransferase 30 units/L (7-56); Albumin 2.8 g/dL (3.9-5); BUN/Creatinine Ratio 26; Blood Urea Nitrogen 18 mg/dL (9-20); Calcium 9.3 mg/dL (8.4-10.2); Hemolysis Index 1
[2018-12-31 05:32] LABS: Bilirubin,Direct < 0.2 mg/dL (0-0.2)
[2018-12-31] MEDS: BROVANA NEBU IH SCH (07:37)
[2018-12-31] MEDS: PULMICORT IH SCH (07:37)
[2018-12-31] MEDS: XOPENEX IH SCH ×2 (07:39→13:34)
[2018-12-31] MEDS: FLOMAX PO SCH (08:01)
[2018-12-31] MEDS: PERCOCET 5/325 PO PRN ×3 (08:01→23:49)
[2018-12-31] MEDS: LOVENOX SUB-Q SCH (08:01)
[2018-12-31] MEDS: FLEXERIL PO PRN ×3 (08:05→23:49)
--- NOTE | 2018-12-31 11:40 | Progress Note ---
Assessment and Plan s/p bipolar hip replacement doing well continue PT and observation Subjective Date of service: 12/31/18 Principal diagnosis: bone mets - hip fracture Interval history: No complaints today resting comfortably in bed visitor at bedside Objective Vital signs: Vital Signs - 12hr 12/31/18 12/31/18 12/31/18 00:15 00:30 04:35 Temperature 97.8 F 97.8 F 98.4 F Pulse Rate 89 103 H 90 Pulse Rate [ Anterior Upper Lobe] Respiratory 17 17 18 Rate Respiratory Rate [Anterior Upper Lobe] Blood Pressure 137/67 141/73 Blood Pressure 137/67 [Right] O2 Sat by Pulse 90 90 90 Oximetry 12/31/18 12/31/18 12/31/18 07:25 07:30 07:39 Temperature 99.1 F Pulse Rate 95 H Pulse Rate [ 85 Anterior Upper Lobe] Respiratory 18 18 Rate Respiratory 18 Rate [Anterior Upper Lobe] Blood Pressure Blood Pressure 131/71 [Right] O2 Sat by Pulse 88 87 96 Oximetry 12/31/18 07:46 Temperature Pulse Rate Pulse Rate [ 88 Anterior Upper Lobe] Respiratory Rate Respiratory 18 Rate [Anterior Upper Lobe] Blood Pressure Blood Pressure [Right] O2 Sat by Pulse Oximetry Incision: clean and dry Weight bearing status: as tolerated - Labs CBC & BMP: 12/30/18 04:06 12/31/18 04:14 Labs: Abnormal lab results 12/31/18 Range/Units 04:14 Creatinine 0.7 L (0.8-1.5) mg/dL Glucose 125 H (75-100) mg/dL Albumin 2.8 L (3.9-5) g/dL
[2018-12-31] MEDS: NACL 0.9% 1000 ML 1,000 ML IV SCH ×2 (12:39→23:52)
--- NOTE | 2018-12-31 12:45 | Progress Note ---
Assessment and Plan Assessment and plan: 73 man who presents sp [facility] fall at home with R hip pain and inability to walk R Hip fracture Sp arthroplasty 12/29 PAF Rate control per cardiology, eliquis on hold Multiple bony lesions, MM vs metastases Oncology input appreciated, check spep and upep, outpatient fup LLL pna Abx COPD HLD Htn Hx of skin cancer of face sp resection DVt ppx lovenox History Interval history: Review of systems Constitutional: No fevers, no joint pains CVS: No chest pain, no orthopnea, no dyspnea on exertion, no pedal edema GI: No abdominal pain, no diarrhea, no vomiting, no constipation Respiratory: no wheezing, no coughing Hospitalist Physical - Physical exam Narrative exam: General.: Appears well, no distress, nontoxic HEENT: Moist mucous membranes, extraocular muscles intact, no lymphadenopathy Neck: supple Cardiac: S1-S2 heard Lungs: clear to auscultation bilaterally Abdomen: soft , nontender, nondistended, bowel sounds positive Extremities: no edema clubbing or cyanosis Skin: no rash or lesions Neurologic: no gross focal deficits Psych: calm, and cooperative - Constitutional Vitals: Temp Pulse Resp BP Pulse Ox 98.4 F 92 H 18 134/76 89 12/31/18 11:35 12/31/18 11:35 12/31/18 11:35 12/31/18 11:35 12/31/18 11:35 General appearance: Present: no acute distress Results - Labs CBC & Chem 7: 01/01/19 04:39 12/31/18 04:14 Labs: Laboratory Last Values WBC 14.1 K/mm3 (4.5-11.0) H 12/28/18 10:55 RBC 3.70 M/mm3 (3.65-5.03) 12/28/18 10:55 Hgb 10.4 gm/dl (11.8-15.2) L 12/30/18 04:06 Hct 32.2 % (35.5-45.6) L 12/30/18 04:06 MCV 94 fl (84-94) 12/28/18 10:55 MCH 30 pg (28-32) 12/28/18 10:55 MCHC 32 % (32-34) 12/28/18 10:55 RDW 17.2 % (13.2-15.2) H 12/28/18 10:55 Plt Count 349 K/mm3 (140-440) 12/30/18 04:06 PT 15.2 Sec. (12.2-14.9) H 12/28/18 14:51 INR 1.13 (0.87-1.13) 12/28/18 14:51 APTT 38.9 Sec. (24.2-36.6) H 12/28/18 14:51 Sodium 140 mmol/L (137-145) 12/31/18 04:14 Potassium 4.6 mmol/L (3.6-5.0) 12/31/18 04:14 Chloride 101.2 mmol/L (98-107) 12/31/18 04:14 Carbon Dioxide 28 mmol/L (22-30) 12/31/18 04:14 15 mmol/L 12/31/18 04:14 BUN 18 mg/dL (9-20) 12/31/18 04:14 0.7 mg/dL (0.8-1.5) L 12/31/18 04:14 Estimated GFR > 60 ml/min 12/31/18 04:14 26 % 12/31/18 04:14 Glucose 125 mg/dL (75-100) H 12/31/18 04:14 Calcium 9.3 mg/dL (8.4-10.2) 12/31/18 04:14 0.50 mg/dL (0.1-1.2) 12/31/18 04:14 < 0.2 mg/dL (0-0.2) 12/31/18 04:14 0.3 mg/dL 12/31/18 04:14 AST 38 units/L (5-40) 12/31/18 04:14 ALT 30 units/L (7-56) 12/31/18 04:14 114 units/L (35-129) 12/31/18 04:14 NT-Pro-B Natriuret Pep 153.7 pg/mL (0-900) 12/28/18 10:55 6.8 g/dL (6.3-8.2) 12/31/18 04:14 2.8 g/dL (3.9-5) L 12/31/18 04:14 0.7 % 12/31/18 04:14 Yellow (Yellow) 12/28/18 19:00 Clear (Clear) 12/28/18 19:00 5.0 (5.0-7.0) 12/28/18 19:00 Ur Specific [place] 1.045 (1.003-1.030) H 12/28/18 19:00 <15 mg/dl mg/dL (Negative) 12/28/18 19:00 Neg mg/dL (Negative) 12/28/18 19:00 Tr mg/dL (Negative) 12/28/18 19:00 Neg (Negative) 12/28/18 19:00 Neg (Negative) 12/28/18 19:00 Neg (Negative) 12/28/18 19:00 < 2.0 mg/dL (<2.0) 12/28/18 19:00 Ur Leukocyte Esterase Tr (Negative) 12/28/18 19:00 6.0 /HPF (0.0-6.0) 12/28/18 19:00 2.0 /HPF (0.0-6.0) 12/28/18 19:00 U Epithel Cells (Auto) < 1.0 /HPF (0-13.0) 12/28/18 19:00 2+ /HPF 12/28/18 19:00 Active Medications - Current Medications Current Medications: Generic Name Dose Route Start Last Admin Trade Name Freq PRN Reason Stop Dose Admin Acetaminophen 650 mg 12/28/18 11:41 Tylenol PO Q4H PRN Pain MILD(1-3)/Fever >100.5/SKINNER Arformoterol Tartrate 15 mcg 12/28/18 20:00 12/31/18 07:37 Brovana Nebu IH 15 mcg Q12HRT IGNACIO Administration Budesonide 0.5 mg 12/28/18 20:00 12/31/18 07:37 Pulmicort IH 0.5 mg Q12HRT IGNACIO Administration Cyclobenzaprine HCl 5 mg 12/28/18 14:37 12/31/18 08:05 Flexeril PO 5 mg Q8H PRN Administration Muscle Spasm Enoxaparin Sodium 40 mg 12/30/18 10:00 12/31/18 08:01 Lovenox SUB-Q 40 mg QDAY IGNACIO Administration Famotidine 20 mg 12/28/18 22:00 12/30/18 22:28 Pepcid PO 20 mg BID IGNACIO Administration Ceftriaxone Sodium 1 gm in 50 mls @ 100 mls/hr 12/28/18 12:00 12/30/18 09:18 Rocephin/Ns 1 Gm/50 Ml IV 100 mls/hr Q24HR IGNACIO Administration Protocol Sodium Chloride 1,000 mls @ 100 mls/hr 12/29/18 12:30 12/31/18 12:39 Nacl 0.9% 1000 Ml IV 100 mls/hr DIRECT IGNACIO Administration Levalbuterol HCl 0.63 mg 12/28/18 14:00 12/31/18 07:39 Xopenex IH Not Given TIDRT IGNACIO Metoprolol Succinate 25 mg 12/29/18 10:00 12/30/18 09:19 Toprol Xl PO 25 mg QDAY IGNACIO Administration Morphine Sulfate 2 mg 12/28/18 11:41 12/30/18 20:26 Morphine IV 2 mg Q4H PRN Administration Pain, Moderate (4-6) Morphine Sulfate 4 mg 12/29/18 14:10 Morphine IV Q4H PRN Pain , Severe (7-10) Ondansetron HCl 4 mg 12/28/18 11:41 12/28/18 16:49 Zofran IV 4 mg Q8H PRN Administration Nausea And Vomiting Oxycodone/Acetaminophen 1 tab 12/29/18 14:10 12/31/18 08:01 Percocet 5/325 PO 1 tab Q6H PRN Administration Pain, Moderate (4-6) Polyethylene Glycol 17 gm 12/29/18 10:00 12/30/18 09:20 Miralax 3350 PO 17 gm QDAY IGNACIO Administration Pravastatin Sodium 40 mg 12/28/18 22:00 12/30/18 22:28 Pravachol PO 40 mg HS IGNACIO Administration Quetiapine Fumarate 100 mg 12/28/18 22:00 12/30/18 22:28 Seroquel PO 100 mg HS IGNACIO Administration Sodium Chloride 10 ml 12/28/18 22:00 12/30/18 06:08 Sodium Chloride Flush Syringe 10 Ml IV 10 ml BID IGNACIO Administration Sodium Chloride 10 ml 12/28/18 11:41 Sodium Chloride Flush Syringe 10 Ml IV PRN PRN LINE FLUSH Tamsulosin HCl 0.4 mg 12/29/18 08:00 12/31/18 08:01 Flomax PO 0.4 mg QDAY@0800 IGNACIO Administration Tramadol HCl 50 mg 12/28/18 13:10 Ultram PO Q6HR PRN Pain
[2018-12-31] MEDS: PEPCID PO SCH ×2 (14:25→21:10)
[2018-12-31] MEDS: MIRALAX 3350 PO SCH (14:25)
[2018-12-31] MEDS: ROCEPHIN/NS 1 GM/50 ML 1 GM/50 ML BAG IV SCH (14:26)
[2018-12-31] MEDS: TOPROL XL PO SCH (14:33)
[2018-12-31] MEDS: DICLOFENAC 1% TP SCH (17:27)
--- NOTE | 2018-12-31 19:34 | Progress Note ---
Assessment and Plan 73 YO Male with H/O COPD, PVD, HTN, HLD, Seizure Disorder, Skin Cancer, Atrial Fib on Therapeutic Anticoagulation, CHF, OA presents to ED for evaluation. Pt states that he slipped while getting into his bathtub this morning, and experienced a fall. Pt states that he developed severe pain in his right hip and was unable to stand and bear weight on his hip immediately after the fall. Pt states that pain is 10/10, constant, worsened with movement. EMS notified, and upon arrival the patient was found to be in distress. Pt transported to [facility]. Pt seen and evaluated in ED and found to have a suspected Pathologic Right hip fracture. Pt admitted to Surgical floor. Ortho surgery consulted in ED. Pt is pending surgical intervention when medically optimized. Cardiology consulted in ED. Pt denies fever, chills, CP, Palpitations, NVD, Syncope, Seizure, hemoptysis, skin rash, ,or known recent ill contacts. Pt denies head trauma. Oncology consulted in ED. Patient has heavy history of smoking. 3 packs x 50 years. Stopped smoking since 2011. Denies alcohol or drug abuse. Patient has history of COPD and Hypertension. H/O pneumonia in the past. Not . Has no children. No known drug allergies. 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 Resting on 4 litres O2. O2 saturation 93%. Patient had CT of chest 12/28/18 IMPRESSION: Emphysema. Atelectatic changes in the lower lung zones and right apical scarring. Questionable right perihilar density as described. Mildly enlarged right hilar lymph nodes. Multiple lytic bony lesions consistent with a metastatic process or multiple myeloma. Recommend ABGs on O2. Bedside spirometry. Albuterol/atrovent aerosol treatments q 6 hours. Incentive spirometry. Patient is on I/V Heparin. Recommend to stop Heparin 6 to eight hours before surgery and coags before surgery. 12/31/18 Patient post right leg surgery, resting in bed. Patient undergone bipolar hip replacement.on 3 litres O2. O2 saturation 92%. No acute respiratory distress. No complaint of chest pain, cough or shortness of breath. - Patient Problems (1) Acute respiratory failure Current Visit: No Status: Acute Qualifiers: Respiratory failure complication: hypoxia Qualified Code(s): J96.01 - Acute respiratory failure with hypoxia Plan to address problem: O2 4 litres via nasal canula. Albuterol/atrovent aerosol treatments q 6 hours. Patient is on S/C Lovenox. Patient is on ceftrioxone. Continue famotidine. (2) Atrial fibrillation Current Visit: No Status: Acute Qualifiers: Atrial fibrillation type: persistent Qualified Code(s): I48.1 - Persistent atrial fibrillation Plan to address problem: Patient is on S/C Lovenox at this time. Management as per cardiology. (3) Femoral neck fracture Current Visit: Yes Status: Acute Qualifiers: Encounter type: initial encounter Fracture type: closed Laterality: right Qualified Code(s): S72.001A - Fracture of unspecified part of neck of right femur, initial encounter for closed fracture Plan to address problem: Patient undergone Bipolar hip replacement. (4) HTN (hypertension) Current Visit: Yes Status: Acute Qualifiers: Hypertension type: essential hypertension Qualified Code(s): I10 - Essential (primary) hypertension Plan to address problem: Management as per primary care. (5) Hip fracture Current Visit: Yes Status: Acute Qualifiers: Encounter type: initial encounter Fracture type: closed Laterality: right Qualified Code(s): S72.001A - Fracture of unspecified part of neck of right femur, initial encounter for closed fracture Plan to address problem: Patient undergone bipolar hip replacement. (6) ARF (acute renal failure) with tubular necrosis Current Visit: No Status: Acute Plan to address problem: Management as per nephrology. (7) COPD exacerbation Current Visit: No Status: Acute Plan to address problem: O2 4 litres via nasal canula. Albuterol/atrovent aerosol treatments q 6 hours. desinide aerosol treatments q 12 hours. Patient is on I/V heparin. Patient is on ceftrioxone. Continue famotidine. (8) Cavitary lesion of lung Current Visit: No Status: Acute Plan to address problem: CTof chst done 12/28/18 reported Emphysema. Atelectatic changes in the lower lung zones and right apical scarring. Questionable right perihilar density . Mildly enlarged right hilar lymph nodes. Multiple lytic bony lesions consistent with a metastatic process or multiple myeloma. Subjective Date of service: 12/31/18 Principal diagnosis: bone mets - hip fracture Interval history: Patient post right leg surgery, resting in bed. Patient under gone BIpolar hip replacement. on 3 litres O2. O2 saturation 92%. No acute respiratory distress. No complaint of chest pain, cough or shortness of breath Objective Vital Signs - 12hr 12/31/18 12/31/18 12/31/18 07:39 07:46 11:35 Temperature 98.4 F Pulse Rate 92 H Pulse Rate [ 85 88 Anterior Upper Lobe] Respiratory 18 Rate Respiratory 18 18 Rate [Anterior Upper Lobe] Blood Pressure Blood Pressure 134/76 [Right] O2 Sat by Pulse 96 89 Oximetry 12/31/18 12/31/18 15:55 19:27 Temperature 98.1 F 98.1 F Pulse Rate 92 H 99 H Pulse Rate [ Anterior Upper Lobe] Respiratory 19 18 Rate Respiratory Rate [Anterior Upper Lobe] Blood Pressure 140/70 Blood Pressure 141/73 [Right] O2 Sat by Pulse 91 92 Oximetry Constitutional: no acute distress, alert Eyes: non-icteric ENT: oropharynx moist Neck: supple, no JVD Ascultation: Bilateral: diminished breath sounds Cardiovascular: irregular rhythm Gastrointestinal: normoactive bowel sounds, soft, non-tender Integumentary: normal Extremities: no cyanosis, no edema, other (S/P repair of right leg fracture.) Neurologic: normal mental status, pupils equal and round Psychiatric: mood appropriate CBC and BMP: 12/30/18 04:06 12/31/18 04:14 ABG, PT/INR, D-dimer: PT/INR, D-dimer PT 15.2 Sec. (12.2-14.9) H 12/28/18 14:51 INR 1.13 (0.87-1.13) 12/28/18 14:51 Abnormal lab findings: Abnormal Labs 12/28/18 12/28/18 12/28/18 10:55 10:55 14:51 WBC 14.1 H Hgb 11.2 L 10.8 L Hct 34.6 L 33.2 L RDW 17.2 H PT APTT Creatinine Glucose 145 H Albumin Ur Specific [place] 12/28/18 12/28/18 12/30/18 14:51 19:00 04:06 WBC Hgb 10.4 L Hct 32.2 L RDW PT 15.2 H APTT 38.9 H Creatinine Glucose Albumin Ur Specific [place] 1.045 H 12/31/18 04:14 WBC Hgb Hct RDW PT APTT Creatinine 0.7 L Glucose 125 H Albumin 2.8 L Ur Specific [place]
[2018-12-31] MEDS: PRAVACHOL PO SCH (21:09)
[2018-12-31] MEDS: SODIUM CHLORIDE FLUSH SYRINGE 10 ML IV SCH (21:10)
[2019-01-01 04:56] LABS: Hematocrit 26.5 % (35.5-45.6); Hemoglobin 8.8 gm/dl (11.8-15.2)
--- NOTE | 2019-01-01 08:31 | Hem/Onc Progress Note ---
Assessment and Plan Bone lesions. Radiologist suggests metastatic disease versus myeloma. There are no lesions in liver, kidneys, or pancreas. 1. Hilar lymph node present, lung opacity present. 2. For hip fracture, surgery planned. 3. myeloma investigation. 4. Mild anemia. 5. anticoagulation with Eliquis for atrial fibrillation issues. 6. History of hypertension. 7. History of heart failure. 8. History of chronic obstructive pulmonary disease. 9. History of facial skin cancers. 10. We will await the pathology report from hip surgery and follow the patient. 11. tumor markers. PSA in the clinic was normal. 12/30 - s/p rt hip sx 01/01 - ambulating minimally path pending - Patient Problems (1) Lytic bone lesions on xray Current Visit: Yes Status: Acute Subjective Date of service: 01/01/19 Principal diagnosis: bone lesions Interval history: ambulating minimally Objective - Constitutional Vitals: Last Vital Signs Temp 98.9 F 01/01/19 07:45 Pulse 72 01/01/19 07:45 Resp 16 01/01/19 07:45 BP 121/65 01/01/19 07:45 Pulse Ox 97 01/01/19 07:45 Pain Intensity (0-10): denies any pain General appearance: no acute distress Performance status: 3-limited selfcare - EENT Eyes: PERRL, EOM intact ENT: clear oral mucosa Lymph node exam: negative cervical - Neck Neck: normal ROM - Respiratory Respiratory effort: Positive: normal Respiratory: bilateral: CTA - Cardiovascular Heart Sounds: Present: S1 & S2 Extremities: No edema - Gastrointestinal General gastrointestinal: Present: soft, non-tender Rectal Exam: deferred - Genitourinary Male genitourinary: Present: deferred - Integumentary Integumentary: warm - Musculoskeletal Musculoskeletal: generalized weakness - Neurologic Neurologic: moves all extremities - Labs Lab Results: Laboratory Results - last 24 hr 01/01/19 04:39 Hgb 8.8 L Hct 26.5 L Plt Count 336 Medications & Allergies - Medications Allergies/Adverse Reactions: Allergies No Known Allergies Allergy (Verified 12/12/13 06:46) Home Medications: Home Medications Medication Instructions Recorded Confirmed Last Taken Type Apixaban [Eliquis] 5 mg PO Q12HR #60 tablet 09/20/18 12/28/18 Unknown Rx Arformoterol Nebu [Brovana Nebu] 15 mcg IH Q12HRT 30 Days #30 ml 09/20/18 12/28/18 Unknown Rx Aspirin [Aspirin BABY CHEW TAB] 81 mg PO DAILY #30 09/20/18 12/28/18 07/27/18 Rx Budesonide [Pulmicort Respules] 0.5 mg IH Q12HRT 30 Days nebu 09/20/18 12/28/18 Unknown Rx Cyclobenzaprine HCl [Flexeril 5 MG 5 mg PO TID PRN 12/28/18 12/28/18 Unknown History TAB] Diclofenac 1% [Diclofenac 1% 1 applic TP DAILY 12/28/18 12/28/18 Unknown History topical gel] Famotidine [Pepcid] 20 mg PO HS 12/28/18 12/28/18 Unknown History Metoprolol Xl [Metoprolol 25 mg PO QDAY 12/28/18 12/28/18 Unknown History SUCCINATE ER TAB] oxyCODONE /ACETAMINOPHEN [Percocet 1 tab PO Q6HR PRN 12/28/18 12/28/18 Unknown History 5/325] traMADol [Ultram] 50 mg PO Q6HR PRN 12/28/18 12/28/18 Unknown History Active Medications: Generic Name Dose Route Start Last Admin Trade Name Freq PRN Reason Stop Dose Admin Acetaminophen 650 mg 12/28/18 11:41 Tylenol PO Q4H PRN Pain MILD(1-3)/Fever >100.5/SKINNER Arformoterol Tartrate 15 mcg 12/28/18 20:00 12/31/18 07:37 Brovana Nebu IH 15 mcg Q12HRT IGNACIO Administration Budesonide 0.5 mg 12/28/18 20:00 12/31/18 07:37 Pulmicort IH 0.5 mg Q12HRT IGNACIO Administration Cyclobenzaprine HCl 5 mg 12/28/18 14:37 12/31/18 23:49 Flexeril PO 5 mg Q8H PRN Administration Muscle Spasm Enoxaparin Sodium 40 mg 12/30/18 10:00 12/31/18 08:01 Lovenox SUB-Q 40 mg QDAY IGNACIO Administration Famotidine 20 mg 12/28/18 22:00 12/31/18 21:10 Pepcid PO 20 mg BID IGNACIO Administration Ceftriaxone Sodium 1 gm in 50 mls @ 100 mls/hr 12/28/18 12:00 12/31/18 14:26 Rocephin/Ns 1 Gm/50 Ml IV 100 mls/hr Q24HR IGNACIO Administration Protocol Sodium Chloride 1,000 mls @ 100 mls/hr 12/29/18 12:30 12/31/18 23:52 Nacl 0.9% 1000 Ml IV 100 mls/hr DIRECT IGNACIO Administration Levalbuterol HCl 0.63 mg 12/28/18 14:00 12/31/18 13:34 Xopenex IH Not Given TIDRT IGNACIO Metoprolol Succinate 25 mg 12/29/18 10:00 12/31/18 14:33 Toprol Xl PO 25 mg QDAY IGNACIO Administration Morphine Sulfate 2 mg 12/28/18 11:41 12/30/18 20:26 Morphine IV 2 mg Q4H PRN Administration Pain, Moderate (4-6) Morphine Sulfate 4 mg 12/29/18 14:10 Morphine IV Q4H PRN Pain , Severe (7-10) Ondansetron HCl 4 mg 12/28/18 11:41 12/28/18 16:49 Zofran IV 4 mg Q8H PRN Administration Nausea And Vomiting Oxycodone/Acetaminophen 1 tab 12/29/18 14:10 12/31/18 23:49 Percocet 5/325 PO 1 tab Q6H PRN Administration Pain, Moderate (4-6) Polyethylene Glycol 17 gm 12/29/18 10:00 12/31/18 14:25 Miralax 3350 PO 17 gm QDAY IGNACIO Administration Pravastatin Sodium 40 mg 12/28/18 22:00 12/31/18 21:09 Pravachol PO 40 mg HS IGNACIO Administration Quetiapine Fumarate 100 mg 12/28/18 22:00 12/31/18 21:09 Seroquel PO 100 mg HS IGNACIO Administration Sodium Chloride 10 ml 12/28/18 22:00 12/31/18 21:10 Sodium Chloride Flush Syringe 10 Ml IV 10 ml BID IGNACIO Administration Sodium Chloride 10 ml 12/28/18 11:41 Sodium Chloride Flush Syringe 10 Ml IV PRN PRN LINE FLUSH Tamsulosin HCl 0.4 mg 12/29/18 08:00 12/31/18 08:01 Flomax PO 0.4 mg QDAY@0800 IGNACIO Administration Tramadol HCl 50 mg 12/28/18 13:10 Ultram PO Q6HR PRN Pain
[2019-01-01] MEDS: LOVENOX SUB-Q SCH ×2 (09:05→10:20)
[2019-01-01] MEDS: TOPROL XL PO SCH (09:06)
[2019-01-01] MEDS: FLOMAX PO SCH (09:06)
[2019-01-01] MEDS: MIRALAX 3350 PO SCH (09:07)
[2019-01-01] MEDS: PEPCID PO SCH ×2 (09:07→21:55)
[2019-01-01] MEDS: PULMICORT IH SCH ×3 (09:08→20:52)
[2019-01-01] MEDS: BROVANA NEBU IH SCH ×3 (09:08→20:52)
[2019-01-01] MEDS: XOPENEX IH SCH ×4 (09:08→20:52)
[2019-01-01] MEDS: ROCEPHIN/NS 1 GM/50 ML 1 GM/50 ML BAG IV SCH (09:08)
[2019-01-01] MEDS: PERCOCET 5/325 PO PRN (10:10)
[2019-01-01] MEDS: SODIUM CHLORIDE FLUSH SYRINGE 10 ML IV SCH ×2 (10:19→21:55)
[2019-01-01] MEDS: DICLOFENAC 1% TP SCH (12:16)
[2019-01-01] MEDS: FLEXERIL PO PRN (12:53)
--- NOTE | 2019-01-01 14:09 | Progress Note ---
Assessment and Plan Assessment and plan: 73 man who presents sp [facility] fall at home with R hip pain and inability to walk R Hip fracture Sp arthroplasty 12/29 le us neg for dvt on 01/01 PAF Rate control per cardiology, eliquis on hold Multiple bony lesions, MM vs metastases Oncology input appreciated, check spep and upep, outpatient fup LLL pna Abx COPD HLD Htn Hx of skin cancer of face sp resection DVt ppx lovenox History Interval history: Review of systems Constitutional: No fevers, no joint pains CVS: No chest pain, no orthopnea, no dyspnea on exertion, no pedal edema GI: No abdominal pain, no diarrhea, no vomiting, no constipation Respiratory: no wheezing, no coughing Hospitalist Physical - Physical exam Narrative exam: General.: Appears well, no distress, nontoxic HEENT: Moist mucous membranes, extraocular muscles intact, no lymphadenopathy Neck: supple Cardiac: S1-S2 heard Lungs: clear to auscultation bilaterally Abdomen: soft , nontender, nondistended, bowel sounds positive Extremities: no edema clubbing or cyanosis Skin: no rash or lesions Neurologic: no gross focal deficits Psych: calm, and cooperative - Constitutional Vitals: Temp Pulse Resp BP Pulse Ox 98.1 F 100 H 22 119/68 93 01/01/19 12:00 01/01/19 12:00 01/01/19 12:00 01/01/19 12:00 01/01/19 12:00 General appearance: Present: no acute distress Results - Labs CBC & Chem 7: 01/01/19 04:39 12/31/18 04:14 Labs: Laboratory Last Values WBC 14.1 K/mm3 (4.5-11.0) H 12/28/18 10:55 RBC 3.70 M/mm3 (3.65-5.03) 12/28/18 10:55 Hgb 8.8 gm/dl (11.8-15.2) L 01/01/19 04:39 Hct 26.5 % (35.5-45.6) L 01/01/19 04:39 MCV 94 fl (84-94) 12/28/18 10:55 MCH 30 pg (28-32) 12/28/18 10:55 MCHC 32 % (32-34) 12/28/18 10:55 RDW 17.2 % (13.2-15.2) H 12/28/18 10:55 Plt Count 336 K/mm3 (140-440) 01/01/19 04:39 PT 15.2 Sec. (12.2-14.9) H 12/28/18 14:51 INR 1.13 (0.87-1.13) 12/28/18 14:51 APTT 38.9 Sec. (24.2-36.6) H 12/28/18 14:51 Sodium 140 mmol/L (137-145) 12/31/18 04:14 Potassium 4.6 mmol/L (3.6-5.0) 12/31/18 04:14 Chloride 101.2 mmol/L (98-107) 12/31/18 04:14 Carbon Dioxide 28 mmol/L (22-30) 12/31/18 04:14 15 mmol/L 12/31/18 04:14 BUN 18 mg/dL (9-20) 12/31/18 04:14 0.7 mg/dL (0.8-1.5) L 12/31/18 04:14 Estimated GFR > 60 ml/min 12/31/18 04:14 26 % 12/31/18 04:14 Glucose 125 mg/dL (75-100) H 12/31/18 04:14 Calcium 9.3 mg/dL (8.4-10.2) 12/31/18 04:14 0.50 mg/dL (0.1-1.2) 12/31/18 04:14 < 0.2 mg/dL (0-0.2) 12/31/18 04:14 0.3 mg/dL 12/31/18 04:14 AST 38 units/L (5-40) 12/31/18 04:14 ALT 30 units/L (7-56) 12/31/18 04:14 114 units/L (35-129) 12/31/18 04:14 NT-Pro-B Natriuret Pep 153.7 pg/mL (0-900) 12/28/18 10:55 6.8 g/dL (6.3-8.2) 12/31/18 04:14 2.8 g/dL (3.9-5) L 12/31/18 04:14 0.7 % 12/31/18 04:14 Yellow (Yellow) 12/28/18 19:00 Clear (Clear) 12/28/18 19:00 5.0 (5.0-7.0) 12/28/18 19:00 Ur Specific [place] 1.045 (1.003-1.030) H 12/28/18 19:00 <15 mg/dl mg/dL (Negative) 12/28/18 19:00 Neg mg/dL (Negative) 12/28/18 19:00 Tr mg/dL (Negative) 12/28/18 19:00 Neg (Negative) 12/28/18 19:00 Neg (Negative) 12/28/18 19:00 Neg (Negative) 12/28/18 19:00 < 2.0 mg/dL (<2.0) 12/28/18 19:00 Ur Leukocyte Esterase Tr (Negative) 12/28/18 19:00 6.0 /HPF (0.0-6.0) 12/28/18 19:00 2.0 /HPF (0.0-6.0) 12/28/18 19:00 U Epithel Cells (Auto) < 1.0 /HPF (0-13.0) 12/28/18 19:00 2+ /HPF 12/28/18 19:00 Active Medications - Current Medications Current Medications: Generic Name Dose Route Start Last Admin Trade Name Freq PRN Reason Stop Dose Admin Acetaminophen 650 mg 12/28/18 11:41 Tylenol PO Q4H PRN Pain MILD(1-3)/Fever >100.5/SKINNER Arformoterol Tartrate 15 mcg 12/28/18 20:00 01/01/19 09:08 Brovana Nebu IH 15 mcg Q12HRT IGNACIO Administration Budesonide 0.5 mg 12/28/18 20:00 01/01/19 09:08 Pulmicort IH 0.5 mg Q12HRT IGNACIO Administration Cyclobenzaprine HCl 5 mg 12/28/18 14:37 01/01/19 12:53 Flexeril PO 5 mg Q8H PRN Administration Muscle Spasm Enoxaparin Sodium 40 mg 12/30/18 10:00 01/01/19 10:20 Lovenox SUB-Q Not Given QDAY IGNACIO Famotidine 20 mg 12/28/18 22:00 01/01/19 09:07 Pepcid PO 20 mg BID IGNACIO Administration Ceftriaxone Sodium 1 gm in 50 mls @ 100 mls/hr 12/28/18 12:00 01/01/19 09:08 Rocephin/Ns 1 Gm/50 Ml IV 100 mls/hr Q24HR IGNACIO Administration Protocol Levalbuterol HCl 0.63 mg 12/28/18 14:00 01/01/19 09:08 Xopenex IH 0.63 mg TIDRT IGNACIO Administration Metoprolol Succinate 25 mg 12/29/18 10:00 01/01/19 09:06 Toprol Xl PO 25 mg QDAY IGNACIO Administration Morphine Sulfate 2 mg 12/28/18 11:41 12/30/18 20:26 Morphine IV 2 mg Q4H PRN Administration Pain, Moderate (4-6) Morphine Sulfate 4 mg 12/29/18 14:10 Morphine IV Q4H PRN Pain , Severe (7-10) Ondansetron HCl 4 mg 12/28/18 11:41 12/28/18 16:49 Zofran IV 4 mg Q8H PRN Administration Nausea And Vomiting Oxycodone/Acetaminophen 1 tab 12/29/18 14:10 01/01/19 10:10 Percocet 5/325 PO 1 tab Q6H PRN Administration Pain, Moderate (4-6) Polyethylene Glycol 17 gm 12/29/18 10:00 01/01/19 09:07 Miralax 3350 PO 17 gm QDAY IGNACIO Administration Pravastatin Sodium 40 mg 12/28/18 22:00 12/31/18 21:09 Pravachol PO 40 mg HS IGNACIO Administration Quetiapine Fumarate 100 mg 12/28/18 22:00 12/31/18 21:09 Seroquel PO 100 mg HS IGNACIO Administration Sodium Chloride 10 ml 12/28/18 22:00 01/01/19 10:19 Sodium Chloride Flush Syringe 10 Ml IV Not Given BID IGNACIO Sodium Chloride 10 ml 12/28/18 11:41 Sodium Chloride Flush Syringe 10 Ml IV PRN PRN LINE FLUSH Tamsulosin HCl 0.4 mg 12/29/18 08:00 01/01/19 09:06 Flomax PO 0.4 mg QDAY@0800 IGNACIO Administration Tramadol HCl 50 mg 12/28/18 13:10 Ultram PO Q6HR PRN Pain
--- NOTE | 2019-01-01 16:10 | Vascular Lab Report ---
PROCEDURE: VL VENOUS DUPLEX LE BILAT HISTORY: LE edema COMPARISONS: FINDINGS: Real-time ultrasound the right leg and left leg was performed using grayscale and color Dop pler images. These images demonstrate no evidence of deep venous thrombus in the right or left common femoral vein , superficial femoral vein, popliteal vein or posterior tibial vein. IMPRESSION: No DVT in either leg This document is electronically signed by Fortunato Overton MD., Jan 01 2019 04:08:01 PM ET
--- NOTE | 2019-01-01 21:38 | Progress Note ---
Assessment and Plan Patient post right leg surgery, resting in bed. Patient under gone BIpolar hip replacement. on 34 litres O2. O2 saturation 92%. No acute respiratory distress. No complaint of chest pain, cough or shortness of breath. Patient has venous dop pler studies of legs reported negative for DVT. - Patient Problems (1) Acute respiratory failure Current Visit: No Status: Acute Qualifiers: Respiratory failure complication: hypoxia Qualified Code(s): J96.01 - Acute respiratory failure with hypoxia Plan to address problem: O2 4 litres via nasal canula. Albuterol/atrovent aerosol treatments q 6 hours. Patient is on S/C Lovenox. Patient is on ceftrioxone. Continue famotidine. (2) Atrial fibrillation Current Visit: No Status: Acute Qualifiers: Atrial fibrillation type: persistent Qualified Code(s): I48.1 - Persistent atrial fibrillation Plan to address problem: Patient is on S/C Lovenox at this time. Management as per cardiology. (3) Femoral neck fracture Current Visit: Yes Status: Acute Qualifiers: Encounter type: initial encounter Fracture type: closed Laterality: right Qualified Code(s): S72.001A - Fracture of unspecified part of neck of right femur, initial encounter for closed fracture Plan to address problem: Patient undergone Bipolar hip replacement. (4) HTN (hypertension) Current Visit: Yes Status: Acute Qualifiers: Hypertension type: essential hypertension Qualified Code(s): I10 - Essential (primary) hypertension Plan to address problem: Management as per primary care. (5) Hip fracture Current Visit: Yes Status: Acute Qualifiers: Encounter type: initial encounter Fracture type: closed Laterality: right Qualified Code(s): S72.001A - Fracture of unspecified part of neck of right femur, initial encounter for closed fracture Plan to address problem: Patient undergone bipolar hip replacement. (6) ARF (acute renal failure) with tubular necrosis Current Visit: No Status: Acute Plan to address problem: Management as per nephrology. (7) COPD exacerbation Current Visit: No Status: Acute Plan to address problem: O2 4 litres via nasal canula. Albuterol/atrovent aerosol treatments q 6 hours. desinide aerosol treatments q 12 hours. Patient is on I/V heparin. Patient is on ceftrioxone. Continue famotidine. (8) Cavitary lesion of lung Current Visit: No Status: Acute Plan to address problem: CTof chst done 12/28/18 reported Emphysema. Atelectatic changes in the lower lung zones and right apical scarring. Questionable right perihilar density . Mildly enlarged right hilar lymph nodes. Multiple lytic bony lesions consistent with a metastatic process or multiple myeloma. Subjective Date of service: 01/01/19 Principal diagnosis: bone mets - hip fracture Interval history: Patient post right leg surgery, resting in bed. Patient under gone BIpolar hip replacement. on 34 litres O2. O2 saturation 92%. No acute respiratory distress. No complaint of chest pain, cough or shortness of breath. Patient has venous doppler studies of legs reported negative for DVT. Objective Vital Signs - 12hr 01/01/19 01/01/19 01/01/19 10:33 11:48 12:00 Temperature 98.0 F 98.1 F Pulse Rate 100 H Pulse Rate [ Anterior Bilateral Throughout] Pulse Rate [ Anterior Upper Lobe] Respiratory 16 22 22 Rate Respiratory Rate [Anterior Bilateral Throughout] Respiratory Rate [Anterior Upper Lobe] Blood Pressure 119/68 Blood Pressure 119/68 [Right] O2 Sat by Pulse 97 93 Oximetry 01/01/19 01/01/19 01/01/19 15:04 15:16 16:00 Temperature 97.1 F L Pulse Rate 92 H Pulse Rate [ Anterior Bilateral Throughout] Pulse Rate [ 92 H 94 H Anterior Upper Lobe] Respiratory 20 Rate Respiratory Rate [Anterior Bilateral Throughout] Respiratory 20 20 Rate [Anterior Upper Lobe] Blood Pressure Blood Pressure 141/70 [Right] O2 Sat by Pulse 92 Oximetry 01/01/19 01/01/19 01/01/19 19:18 20:56 21:08 Temperature 98.7 F Pulse Rate 94 H Pulse Rate [ 100 H 98 H Anterior Bilateral Throughout] Pulse Rate [ Anterior Upper Lobe] Respiratory 19 Rate Respiratory 20 20 Rate [Anterior Bilateral Throughout] Respiratory Rate [Anterior Upper Lobe] Blood Pressure 126/54 Blood Pressure [Right] O2 Sat by Pulse 76 L Oximetry 01/01/19 21:11 Temperature Pulse Rate Pulse Rate [ Anterior Bilateral Throughout] Pulse Rate [ Anterior Upper Lobe] Respiratory Rate Respiratory Rate [Anterior Bilateral Throughout] Respiratory Rate [Anterior Upper Lobe] Blood Pressure Blood Pressure [Right] O2 Sat by Pulse 93 Oximetry Constitutional: no acute distress, alert Eyes: non-icteric ENT: oropharynx moist Neck: supple, no JVD Ascultation: Bilateral: diminished breath sounds Cardiovascular: irregular rhythm Gastrointestinal: normoactive bowel sounds, soft, non-tender Integumentary: normal Extremities: no cyanosis, no edema, other (S/P repair of right leg fracture.) Neurologic: normal mental status, pupils equal and round Psychiatric: mood appropriate CBC and BMP: 01/01/19 04:39 12/31/18 04:14 ABG, PT/INR, D-dimer: PT/INR, D-dimer PT 15.2 Sec. (12.2-14.9) H 12/28/18 14:51 INR 1.13 (0.87-1.13) 12/28/18 14:51 Abnormal lab findings: Abnormal Labs 12/28/18 12/28/18 12/28/18 10:55 10:55 14:51 WBC 14.1 H Hgb 11.2 L 10.8 L Hct 34.6 L 33.2 L RDW 17.2 H PT APTT Creatinine Glucose 145 H Albumin Ur Specific [place] 12/28/18 12/28/18 12/30/18 14:51 19:00 04:06 WBC Hgb 10.4 L Hct 32.2 L RDW PT 15.2 H APTT 38.9 H Creatinine Glucose Albumin Ur Specific [place] 1.045 H 12/31/18 01/01/19 04:14 04:39 WBC Hgb 8.8 L Hct 26.5 L RDW PT APTT Creatinine 0.7 L Glucose 125 H Albumin 2.8 L Ur Specific [place] Prior PFT's, U/S of legs: report reviewed (Reported no DVT in either leg.)
[2019-01-01] MEDS: PRAVACHOL PO SCH (21:55)
[2019-01-01 22:20] LABS: Abnormal Protein Band 1 1.1 g/dL; Albumin 2.7 g/dL (3.8-4.8); Gamma Globulin 0.7 g/dL (0.8-1.7)
[2019-01-01] MEDS: ELIQUIS PO SCH (22:55)
[2019-01-02] MEDS: FLEXERIL PO PRN (03:42)
[2019-01-02] MEDS: PERCOCET 5/325 PO PRN ×3 (03:42→22:44)
[2019-01-02 06:52] LABS: BUN/Creatinine Ratio 18; Blood Urea Nitrogen 11 mg/dL (9-20); Calcium 9.2 mg/dL (8.4-10.2); Hemolysis Index 5
--- NOTE | 2019-01-02 06:56 | Hem/Onc Progress Note ---
Assessment and Plan Bone lesions. Radiologist suggests metastatic disease versus myeloma. There are no lesions in liver, kidneys, or pancreas. 1. Hilar lymph node present, lung opacity present. 2. For hip fracture, surgery planned. 3. myeloma investigation. 4. Mild anemia. 5. anticoagulation with Eliquis for atrial fibrillation issues. 6. History of hypertension. 7. History of heart failure. 8. History of chronic obstructive pulmonary disease. 9. History of facial skin cancers. 10. We will await the pathology report from hip surgery and follow the patient. 11. tumor markers. PSA in the clinic was normal. 12/30 - s/p rt hip sx 01/02 - rt hip pain abn M spike 1 - path pending PSA not elevated - Patient Problems (1) Lytic bone lesions on xray Current Visit: Yes Status: Acute Subjective Date of service: 01/02/19 Principal diagnosis: bone lesions Interval history: rt hip pain Objective - Constitutional Vitals: Last Vital Signs Temp 99.2 F 01/02/19 04:28 Pulse 90 01/02/19 04:28 Resp 20 01/02/19 04:28 BP 158/76 01/02/19 04:28 Pulse Ox 93 01/02/19 04:28 Pain Intensity (0-10): 2/10 (rt hip) General appearance: mild distress (sec to pain) Performance status: 3-limited selfcare - EENT Eyes: PERRL, EOM intact ENT: hearing intact Lymph node exam: negative cervical - Neck Neck: supple, normal ROM - Respiratory Respiratory effort: Positive: normal Respiratory: bilateral: CTA - Cardiovascular Heart Sounds: Present: S1 & S2 Extremities: abnormal (rt hip pain) - Gastrointestinal General gastrointestinal: Present: soft, non-tender Rectal Exam: deferred - Genitourinary Male genitourinary: Present: deferred - Integumentary Integumentary: warm - Neurologic Neurologic: other (rt hip pain) - Labs Lab Results: Laboratory Results - last 24 hr 12/29/18 01/02/19 08:33 05:35 Sodium 137 Potassium 4.4 Chloride 98.8 Carbon Dioxide 25 Anion Gap 18 BUN 11 Creatinine 0.6 L Estimated GFR > 60 BUN/Creatinine Ratio 18 Glucose 141 H Calcium 9.2 Serum Total Protein 6.7 Albumin 2.7 L Xhaok-8-Kzkliujob 0.5 H Eauub-3-Ekfhncfix 1.2 H Beta Globulins 1.1 H Gamma Globulins 0.7 L Abnorm Protein Band 1 1.1 H PEP Interpretation see below H Medications & Allergies - Medications Allergies/Adverse Reactions: Allergies No Known Allergies Allergy (Verified 12/12/13 06:46) Home Medications: Home Medications Medication Instructions Recorded Confirmed Last Taken Type Apixaban [Eliquis] 5 mg PO Q12HR #60 tablet 09/20/18 12/28/18 Unknown Rx Arformoterol Nebu [Brovana Nebu] 15 mcg IH Q12HRT 30 Days #30 ml 09/20/18 12/28/18 Unknown Rx Aspirin [Aspirin BABY CHEW TAB] 81 mg PO DAILY #30 09/20/18 12/28/18 07/27/18 Rx Budesonide [Pulmicort Respules] 0.5 mg IH Q12HRT 30 Days nebu 09/20/18 12/28/18 Unknown Rx Cyclobenzaprine HCl [Flexeril 5 MG 5 mg PO TID PRN 12/28/18 12/28/18 Unknown History TAB] Diclofenac 1% [Diclofenac 1% 1 applic TP DAILY 12/28/18 12/28/18 Unknown History topical gel] Famotidine [Pepcid] 20 mg PO HS 12/28/18 12/28/18 Unknown History Metoprolol Xl [Metoprolol 25 mg PO QDAY 12/28/18 12/28/18 Unknown History SUCCINATE ER TAB] oxyCODONE /ACETAMINOPHEN [Percocet 1 tab PO Q6HR PRN 12/28/18 12/28/18 Unknown History 5/325] traMADol [Ultram] 50 mg PO Q6HR PRN 12/28/18 12/28/18 Unknown History Active Medications: Generic Name Dose Route Start Last Admin Trade Name Freq PRN Reason Stop Dose Admin Acetaminophen 650 mg 12/28/18 11:41 Tylenol PO Q4H PRN Pain MILD(1-3)/Fever >100.5/SKINNER Apixaban 5 mg 01/01/19 23:45 01/01/19 22:55 Eliquis PO Not Given Q12HR IGNACIO Protocol Arformoterol Tartrate 15 mcg 12/28/18 20:00 01/01/19 20:52 Brovana Nebu IH 15 mcg Q12HRT IGNACIO Administration Budesonide 0.5 mg 12/28/18 20:00 01/01/19 20:52 Pulmicort IH 0.5 mg Q12HRT IGNACIO Administration Cyclobenzaprine HCl 5 mg 12/28/18 14:37 01/02/19 03:42 Flexeril PO 5 mg Q8H PRN Administration Muscle Spasm Famotidine 20 mg 12/28/18 22:00 01/01/19 21:55 Pepcid PO 20 mg BID IGNACIO Administration Ceftriaxone Sodium 1 gm in 50 mls @ 100 mls/hr 12/28/18 12:00 01/01/19 09:08 Rocephin/Ns 1 Gm/50 Ml IV 100 mls/hr Q24HR IGNACIO Administration Protocol Levalbuterol HCl 0.63 mg 12/28/18 14:00 01/01/19 20:52 Xopenex IH Not Given TIDRT IGNACIO Metoprolol Succinate 25 mg 12/29/18 10:00 01/01/19 09:06 Toprol Xl PO 25 mg QDAY IGNACIO Administration Morphine Sulfate 2 mg 12/28/18 11:41 12/30/18 20:26 Morphine IV 2 mg Q4H PRN Administration Pain, Moderate (4-6) Morphine Sulfate 4 mg 12/29/18 14:10 Morphine IV Q4H PRN Pain , Severe (7-10) Ondansetron HCl 4 mg 12/28/18 11:41 12/28/18 16:49 Zofran IV 4 mg Q8H PRN Administration Nausea And Vomiting Oxycodone/Acetaminophen 1 tab 12/29/18 14:10 01/02/19 03:42 Percocet 5/325 PO 1 tab Q6H PRN Administration Pain, Moderate (4-6) Polyethylene Glycol 17 gm 12/29/18 10:00 01/01/19 09:07 Miralax 3350 PO 17 gm QDAY IGNACIO Administration Pravastatin Sodium 40 mg 12/28/18 22:00 01/01/19 21:55 Pravachol PO 40 mg HS IGNACIO Administration Quetiapine Fumarate 100 mg 12/28/18 22:00 01/01/19 21:55 Seroquel PO 100 mg HS IGNACIO Administration Sodium Chloride 10 ml 12/28/18 22:00 01/01/19 21:55 Sodium Chloride Flush Syringe 10 Ml IV 10 ml BID IGNACIO Administration Sodium Chloride 10 ml 12/28/18 11:41 Sodium Chloride Flush Syringe 10 Ml IV PRN PRN LINE FLUSH Tamsulosin HCl 0.4 mg 12/29/18 08:00 01/01/19 09:06 Flomax PO 0.4 mg QDAY@0800 IGNACIO Administration Tramadol HCl 50 mg 12/28/18 13:10 Ultram PO Q6HR PRN Pain
[2019-01-02 07:02] LABS: Basophils % (Auto) 0.4 % (0.0-1.8); Eosinophils # (Auto) 0.1 K/mm3 (0.0-0.4); Eosinophils % (Auto) 0.7 % (0.0-4.3); Hematocrit 29.6 % (35.5-45.6); Hemoglobin 9.7 gm/dl (11.8-15.2); Lymphocytes # (Auto) 0.7 K/mm3 (1.2-5.4); Lymphocytes % (Auto) 7.2 % (13.4-35.0); Mean Corpuscular HGB Conc 33 % (32-34); Mean Corpuscular Volume 92 fl (84-94); Monocytes # (Auto) 0.9 K/mm3 (0.0-0.8); Monocytes % (Auto) 9.3 % (0.0-7.3); Platelet Count 373 K/mm3 (140-440); Red Blood Count 3.23 M/mm3 (3.65-5.03); Red Cell Distribution Width 17.1 % (13.2-15.2)
--- NOTE | 2019-01-02 07:54 | Progress Note ---
Assessment and Plan Assessment and plan: 73 man who presents sp [facility] fall at home with R hip pain and inability to walk R Hip fracture Sp arthroplasty 12/29 le us neg for dvt on 01/01 PAF Rate control per cardiology, eliquis restarted on 01/01 Multiple bony lesions, MM vs metastases Oncology input appreciated, check spep and upep, outpatient fup LLL pna Abx COPD HLD Htn Hx of skin cancer of face sp resection DVt ppx fully anticoagulated dispo to IRU History Interval history: Review of systems Constitutional: No fevers, no joint pains CVS: No chest pain, no orthopnea, no dyspnea on exertion, no pedal edema GI: No abdominal pain, no diarrhea, no vomiting, no constipation Respiratory: no wheezing, no coughing Hospitalist Physical - Physical exam Narrative exam: General.: Appears well, no distress, nontoxic HEENT: Moist mucous membranes, extraocular muscles intact, no lymphadenopathy Neck: supple Cardiac: S1-S2 heard Lungs: clear to auscultation bilaterally Abdomen: soft , nontender, nondistended, bowel sounds positive Extremities: no edema clubbing or cyanosis Skin: no rash or lesions Neurologic: no gross focal deficits Psych: calm, and cooperative - Constitutional Vitals: Temp Pulse Resp BP Pulse Ox 98.1 F 90 20 153/81 92 01/02/19 07:45 01/02/19 07:45 01/02/19 07:45 01/02/19 07:45 01/02/19 07:45 General appearance: Present: no acute distress Results - Labs CBC & Chem 7: 01/02/19 05:35 01/02/19 05:35 Labs: Laboratory Last Values WBC 10.1 K/mm3 (4.5-11.0) 01/02/19 05:35 RBC 3.23 M/mm3 (3.65-5.03) L 01/02/19 05:35 Hgb 9.7 gm/dl (11.8-15.2) L 01/02/19 05:35 Hct 29.6 % (35.5-45.6) L 01/02/19 05:35 MCV 92 fl (84-94) 01/02/19 05:35 MCH 30 pg (28-32) 01/02/19 05:35 MCHC 33 % (32-34) 01/02/19 05:35 RDW 17.1 % (13.2-15.2) H 01/02/19 05:35 Plt Count 373 K/mm3 (140-440) 01/02/19 05:35 Lymph % (Auto) 7.2 % (13.4-35.0) L 01/02/19 05:35 [place] % (Auto) 9.3 % (0.0-7.3) H 01/02/19 05:35 Eos % (Auto) 0.7 % (0.0-4.3) 01/02/19 05:35 Baso % (Auto) 0.4 % (0.0-1.8) 01/02/19 05:35 Lymph # 0.7 K/mm3 (1.2-5.4) L 01/02/19 05:35 [place] # 0.9 K/mm3 (0.0-0.8) H 01/02/19 05:35 Eos # 0.1 K/mm3 (0.0-0.4) 01/02/19 05:35 Baso # 0.0 K/mm3 (0.0-0.1) 01/02/19 05:35 Seg Neutrophils % 82.4 % (40.0-70.0) H 01/02/19 05:35 Seg Neutrophils # 8.3 K/mm3 (1.8-7.7) H 01/02/19 05:35 PT 15.2 Sec. (12.2-14.9) H 12/28/18 14:51 INR 1.13 (0.87-1.13) 12/28/18 14:51 APTT 38.9 Sec. (24.2-36.6) H 12/28/18 14:51 Sodium 137 mmol/L (137-145) 01/02/19 05:35 Potassium 4.4 mmol/L (3.6-5.0) 01/02/19 05:35 Chloride 98.8 mmol/L (98-107) 01/02/19 05:35 Carbon Dioxide 25 mmol/L (22-30) 01/02/19 05:35 18 mmol/L 01/02/19 05:35 BUN 11 mg/dL (9-20) 01/02/19 05:35 0.6 mg/dL (0.8-1.5) L 01/02/19 05:35 Estimated GFR > 60 ml/min 01/02/19 05:35 18 % 01/02/19 05:35 Glucose 141 mg/dL (75-100) H 01/02/19 05:35 Calcium 9.2 mg/dL (8.4-10.2) 01/02/19 05:35 0.50 mg/dL (0.1-1.2) 12/31/18 04:14 < 0.2 mg/dL (0-0.2) 12/31/18 04:14 0.3 mg/dL 12/31/18 04:14 AST 38 units/L (5-40) 12/31/18 04:14 ALT 30 units/L (7-56) 12/31/18 04:14 114 units/L (35-129) 12/31/18 04:14 NT-Pro-B Natriuret Pep 153.7 pg/mL (0-900) 12/28/18 10:55 6.7 g/dL (6.1-8.1) 12/29/18 08:33 6.8 g/dL (6.3-8.2) 12/31/18 04:14 2.8 g/dL (3.9-5) L 12/31/18 04:14 0.7 % 12/31/18 04:14 0.5 g/dL (0.2-0.3) H 12/29/18 08:33 1.2 g/dL (0.5-0.9) H 12/29/18 08:33 1.1 g/dL (0.2-0.5) H 12/29/18 08:33 0.7 g/dL (0.8-1.7) L 12/29/18 08:33 Abnorm Protein Band 1 1.1 g/dL H 12/29/18 08:33 PEP Interpretation see below H 12/29/18 08:33 Yellow (Yellow) 12/28/18 19:00 Clear (Clear) 12/28/18 19:00 5.0 (5.0-7.0) 12/28/18 19:00 Ur Specific [place] 1.045 (1.003-1.030) H 12/28/18 19:00 <15 mg/dl mg/dL (Negative) 12/28/18 19:00 Neg mg/dL (Negative) 12/28/18 19:00 Tr mg/dL (Negative) 12/28/18 19:00 Neg (Negative) 12/28/18 19:00 Neg (Negative) 12/28/18 19:00 Neg (Negative) 12/28/18 19:00 < 2.0 mg/dL (<2.0) 12/28/18 19:00 Ur Leukocyte Esterase Tr (Negative) 12/28/18 19:00 6.0 /HPF (0.0-6.0) 12/28/18 19:00 2.0 /HPF (0.0-6.0) 12/28/18 19:00 U Epithel Cells (Auto) < 1.0 /HPF (0-13.0) 12/28/18 19:00 2+ /HPF 12/28/18 19:00 Active Medications - Current Medications Current Medications: Generic Name Dose Route Start Last Admin Trade Name Freq PRN Reason Stop Dose Admin Acetaminophen 650 mg 12/28/18 11:41 Tylenol PO Q4H PRN Pain MILD(1-3)/Fever >100.5/SKINNER Apixaban 5 mg 01/01/19 23:45 01/01/19 22:55 Eliquis PO Not Given Q12HR IGNACIO Protocol Arformoterol Tartrate 15 mcg 12/28/18 20:00 01/01/19 20:52 Brovana Nebu IH 15 mcg Q12HRT IGNACIO Administration Budesonide 0.5 mg 12/28/18 20:00 01/01/19 20:52 Pulmicort IH 0.5 mg Q12HRT IGNACIO Administration Cyclobenzaprine HCl 5 mg 12/28/18 14:37 01/02/19 03:42 Flexeril PO 5 mg Q8H PRN Administration Muscle Spasm Famotidine 20 mg 12/28/18 22:00 01/01/19 21:55 Pepcid PO 20 mg BID IGNACIO Administration Ceftriaxone Sodium 1 gm in 50 mls @ 100 mls/hr 12/28/18 12:00 01/01/19 09:08 Rocephin/Ns 1 Gm/50 Ml IV 100 mls/hr Q24HR IGNACIO Administration Protocol Levalbuterol HCl 0.63 mg 12/28/18 14:00 01/01/19 20:52 Xopenex IH Not Given TIDRT IGNACIO Metoprolol Succinate 25 mg 12/29/18 10:00 01/01/19 09:06 Toprol Xl PO 25 mg QDAY IGNACIO Administration Morphine Sulfate 2 mg 12/28/18 11:41 12/30/18 20:26 Morphine IV 2 mg Q4H PRN Administration Pain, Moderate (4-6) Morphine Sulfate 4 mg 12/29/18 14:10 Morphine IV Q4H PRN Pain , Severe (7-10) Ondansetron HCl 4 mg 12/28/18 11:41 12/28/18 16:49 Zofran IV 4 mg Q8H PRN Administration Nausea And Vomiting Oxycodone/Acetaminophen 1 tab 12/29/18 14:10 01/02/19 03:42 Percocet 5/325 PO 1 tab Q6H PRN Administration Pain, Moderate (4-6) Polyethylene Glycol 17 gm 12/29/18 10:00 01/01/19 09:07 Miralax 3350 PO 17 gm QDAY IGNACIO Administration Pravastatin Sodium 40 mg 12/28/18 22:00 01/01/19 21:55 Pravachol PO 40 mg HS IGNACIO Administration Quetiapine Fumarate 100 mg 12/28/18 22:00 01/01/19 21:55 Seroquel PO 100 mg HS IGNACIO Administration Sodium Chloride 10 ml 12/28/18 22:00 01/01/19 21:55 Sodium Chloride Flush Syringe 10 Ml IV 10 ml BID IGNACIO Administration Sodium Chloride 10 ml 12/28/18 11:41 Sodium Chloride Flush Syringe 10 Ml IV PRN PRN LINE FLUSH Tamsulosin HCl 0.4 mg 12/29/18 08:00 01/01/19 09:06 Flomax PO 0.4 mg QDAY@0800 IGNACIO Administration Tramadol HCl 50 mg 12/28/18 13:10 Ultram PO Q6HR PRN Pain
--- NOTE | 2019-01-02 09:22 | XRay Report ---
RIGHT HIP, 2 VIEWS History: Postop evaluation. Findings: Right hip arthroplasty has been performed since 12/28/16. Alignment is anatomic at the right hip. No fracture is appreciated. Diffuse soft tissue swelling is noted. Impression: Stable appearance of the right hip prosthesis.
[2019-01-02] MEDS: SODIUM CHLORIDE FLUSH SYRINGE 10 ML IV SCH ×4 (10:00→22:47)
[2019-01-02] MEDS: MIRALAX 3350 PO SCH (12:23)
[2019-01-02] MEDS: ELIQUIS PO SCH ×2 (12:29→22:44)
[2019-01-02] MEDS: PEPCID PO SCH ×2 (12:29→22:44)
[2019-01-02] MEDS: DICLOFENAC 1% TP SCH (12:30)
[2019-01-02] MEDS: ROCEPHIN/NS 1 GM/50 ML 1 GM/50 ML BAG IV SCH (12:31)
[2019-01-02] MEDS: TOPROL XL PO SCH (12:31)
[2019-01-02] MEDS: FLOMAX PO SCH (12:46)
[2019-01-02] MEDS: XOPENEX IH SCH ×2 (17:52→23:40)
[2019-01-02] MEDS: PULMICORT IH SCH ×2 (17:52→20:46)
[2019-01-02] MEDS: BROVANA NEBU IH SCH ×2 (17:52→20:46)
--- NOTE | 2019-01-02 19:17 | Progress Note ---
Assessment and Plan Patient post right leg surgery, resting in bed. Patient under gone BIpolar hip replacement. on 4 litres O2. O2 saturation 95%. No acute respiratory distress. Patient has venous doppler studies of legs reported negative for DVT. - Patient Problems (1) Acute respiratory failure Current Visit: No Status: Acute Qualifiers: Respiratory failure complication: hypoxia Qualified Code(s): J96.01 - Acute respiratory failure with hypoxia Plan to address problem: O2 4 litres via nasal canula. Albuterol/atrovent aerosol treatments q 6 hours. Patient is on S/C Lovenox. Patient is on ceftrioxone. Continue famotidine. (2) Atrial fibrillation Current Visit: No Status: Acute Qualifiers: Atrial fibrillation type: persistent Qualified Code(s): I48.1 - Persistent atrial fibrillation Plan to address problem: Patient is on S/C Lovenox at this time. Management as per cardiology. (3) Femoral neck fracture Current Visit: Yes Status: Acute Qualifiers: Encounter type: initial encounter Fracture type: closed Laterality: right Qualified Code(s): S72.001A - Fracture of unspecified part of neck of right femur, initial encounter for closed fracture Plan to address problem: Patient undergone Bipolar hip replacement. (4) HTN (hypertension) Current Visit: Yes Status: Acute Qualifiers: Hypertension type: essential hypertension Qualified Code(s): I10 - Essential (primary) hypertension Plan to address problem: Management as per primary care. (5) Hip fracture Current Visit: Yes Status: Acute Qualifiers: Encounter type: initial encounter Fracture type: closed Laterality: right Qualified Code(s): S72.001A - Fracture of unspecified part of neck of right femur, initial encounter for closed fracture Plan to address problem: Patient undergone bipolar hip replacement. (6) ARF (acute renal failure) with tubular necrosis Current Visit: No Status: Acute Plan to address problem: Management as per nephrology. (7) COPD exacerbation Current Visit: No Status: Acute Plan to address problem: O2 4 litres via nasal canula. Albuterol/atrovent aerosol treatments q 6 hours. desinide aerosol treatments q 12 hours. Patient is on I/V heparin. Patient is on ceftrioxone. Continue famotidine. (8) Cavitary lesion of lung Current Visit: No Status: Acute Plan to address problem: CTof chst done 12/28/18 reported Emphysema. Atelectatic changes in the lower lung zones and right apical scarring. Questionable right perihilar density . Mildly enlarged right hilar lymph nodes. Multiple lytic bony lesions consistent with a metastatic process or multiple myeloma. Subjective Date of service: 01/02/19 Principal diagnosis: bone lesions Interval history: Patient post right leg surgery. Patient sleeping at this time. Patient under gone BIpolar hip replacement. on 4 litres O2. O2 saturation 95%. No acute respiratory distress. Patient has venous doppler studies of legs reported negative for DVT. Objective Vital Signs - 12hr 01/02/19 01/02/19 01/02/19 07:45 10:00 12:00 Temperature 98.1 F 98.4 F Pulse Rate 90 92 H Respiratory 20 22 Rate Blood Pressure Blood Pressure 153/81 146/77 [Right] O2 Sat by Pulse 92 94 92 Oximetry 01/02/19 01/02/19 01/02/19 12:31 15:16 16:00 Temperature 98.0 F 98 F Pulse Rate 90 104 H Respiratory 18 18 Rate Blood Pressure 153/81 103/61 Blood Pressure 103/61 [Right] O2 Sat by Pulse 95 Oximetry Constitutional: no acute distress, asleep Eyes: non-icteric ENT: oropharynx moist Neck: supple, no JVD Ascultation: Bilateral: diminished breath sounds Cardiovascular: irregular rhythm Gastrointestinal: normoactive bowel sounds, soft, non-tender Integumentary: normal Extremities: no cyanosis, no edema, other (S/P repair of right leg fracture.) Neurologic: normal mental status, pupils equal and round Psychiatric: mood appropriate CBC and BMP: 01/02/19 05:35 01/02/19 05:35 ABG, PT/INR, D-dimer: PT/INR, D-dimer PT 15.2 Sec. (12.2-14.9) H 12/28/18 14:51 INR 1.13 (0.87-1.13) 12/28/18 14:51 Abnormal lab findings: Abnormal Labs 12/28/18 12/28/18 12/28/18 10:55 10:55 14:51 WBC 14.1 H RBC Hgb 11.2 L 10.8 L Hct 34.6 L 33.2 L RDW 17.2 H Lymph % (Auto) [place] % (Auto) Lymph # Arthur # Seg Neutrophils % Seg Neutrophils # PT APTT Creatinine Glucose 145 H Albumin Ylzjp-8-Dcsdfspkq Nscyl-2-Xfeaffoxr Beta Globulins Gamma Globulins Abnorm Protein Band 1 PEP Interpretation Ur Specific [place] 12/28/18 12/28/18 12/29/18 14:51 19:00 08:33 WBC RBC Hgb Hct RDW Lymph % (Auto) [place] % (Auto) Lymph # [place] # Seg Neutrophils % Seg Neutrophils # PT 15.2 H APTT 38.9 H Creatinine Glucose Albumin 2.7 L Traxt-5-Jkleoinme 0.5 H Qgugg-4-Vlvzxeawh 1.2 H Beta Globulins 1.1 H Gamma Globulins 0.7 L Abnorm Protein Band 1 1.1 H PEP Interpretation see below H Ur Specific [place] 1.045 H 12/30/18 12/31/18 01/01/19 04:06 04:14 04:39 WBC RBC Hgb 10.4 L 8.8 L Hct 32.2 L 26.5 L RDW Lymph % (Auto) [place] % (Auto) Lymph # [place] # Seg Neutrophils % Seg Neutrophils # PT APTT Creatinine 0.7 L Glucose 125 H Albumin 2.8 L Dzfif-4-Ktnpjuylx Iubkx-1-Dwkascori Beta Globulins Gamma Globulins Abnorm Protein Band 1 PEP Interpretation Ur Specific [place] 01/02/19 01/02/19 05:35 05:35 WBC RBC 3.23 L Hgb 9.7 L Hct 29.6 L RDW 17.1 H Lymph % (Auto) 7.2 L [place] % (Auto) 9.3 H Lymph # 0.7 L [place] # 0.9 H Seg Neutrophils % 82.4 H Seg Neutrophils # 8.3 H PT APTT Creatinine 0.6 L Glucose 141 H Albumin Qzjhi-2-Nbiymrfvc Oosva-2-Bylzkbxxt Beta Globulins Gamma Globulins Abnorm Protein Band 1 PEP Interpretation Ur Specific [place]
[2019-01-02] MEDS: PRAVACHOL PO SCH (22:44)
[2019-01-03 05:21] LABS: Basophils # (Auto) 0.1 K/mm3 (0.0-0.1); Basophils % (Auto) 0.6 % (0.0-1.8); Eosinophils # (Auto) 0.1 K/mm3 (0.0-0.4); Eosinophils % (Auto) 1.1 % (0.0-4.3); Hematocrit 30.2 % (35.5-45.6); Hemoglobin 9.9 gm/dl (11.8-15.2); Lymphocytes % (Auto) 10.5 % (13.4-35.0); Mean Corpuscular HGB Conc 33 % (32-34); Mean Corpuscular Volume 92 fl (84-94); Monocytes % (Auto) 10.3 % (0.0-7.3); Platelet Count 380 K/mm3 (140-440); Red Blood Count 3.29 M/mm3 (3.65-5.03); Red Cell Distribution Width 17.2 % (13.2-15.2)
[2019-01-03 05:43] LABS: BUN/Creatinine Ratio 19; Blood Urea Nitrogen 13 mg/dL (9-20); Calcium 9.5 mg/dL (8.4-10.2); Hemolysis Index 1
[2019-01-03] MEDS: BROVANA NEBU IH SCH ×2 (10:02→21:02)
[2019-01-03] MEDS: PULMICORT IH SCH ×2 (10:02→21:02)
[2019-01-03] MEDS: XOPENEX IH SCH ×3 (10:03→21:02)
[2019-01-03] MEDS: FLOMAX PO SCH (10:47)
[2019-01-03] MEDS: PEPCID PO SCH ×2 (10:48→21:54)
[2019-01-03] MEDS: PERCOCET 5/325 PO PRN ×2 (10:48→21:54)
[2019-01-03] MEDS: ELIQUIS PO SCH ×2 (10:49→21:54)
[2019-01-03] MEDS: TOPROL XL PO SCH (10:50)
[2019-01-03] MEDS: MIRALAX 3350 PO SCH (10:51)
[2019-01-03] MEDS: DICLOFENAC 1% TP SCH (10:53)
--- NOTE | 2019-01-03 11:12 | Progress Note ---
Assessment and Plan Assessment and plan: Assessment and plan: 73 man who presents sp [facility] fall at home with R hip pain and inability to walk R Hip fracture Sp arthroplasty 12/29 le us neg for dvt on 01/01 PAF Rate control per cardiology, eliquis restarted on 01/01 Multiple bony lesions, MM vs metastases Oncology input appreciated, check spep and upep, outpatient fup Discussed with Dr. Calvin, to follow as outpatient LLL pna Abx COPD HLD Htn Hx of skin cancer of face sp resection DVt ppx fully anticoagulated patient stable to discharge home with home health. called by manager case management later that he is appealing discharge History Interval history: right hip fracture, post fall Hospitalist Physical - Physical exam Narrative exam: Gen: Not in acute distress, lying in bed, HEENT: Normocephalic, atraumatic Neck: supple, no JVD Heart: S1 and S2 reg, no murmurs, rubs or gallop Lungs: Clear, no crackles, no wheeze Abd: soft, non tender, non distended, normal BS Ext:No edema, no clubbing, no cyanosis, dressing over right hip Neuro: Awake,alert, oriented x 3, moves all ext, non focal Psych:Normal mood - Constitutional Vitals: Temp Pulse Resp BP Pulse Ox 97.9 F 101 H 18 139/77 90 01/03/19 07:10 01/03/19 10:50 01/03/19 07:10 01/03/19 10:50 01/03/19 07:10 General appearance: Present: no acute distress Results - Labs CBC & Chem 7: 01/03/19 04:09 01/03/19 04:09 Labs: Laboratory Last Values WBC 9.6 K/mm3 (4.5-11.0) 01/03/19 04:09 RBC 3.29 M/mm3 (3.65-5.03) L 01/03/19 04:09 Hgb 9.9 gm/dl (11.8-15.2) L 01/03/19 04:09 Hct 30.2 % (35.5-45.6) L 01/03/19 04:09 MCV 92 fl (84-94) 01/03/19 04:09 MCH 30 pg (28-32) 01/03/19 04:09 MCHC 33 % (32-34) 01/03/19 04:09 RDW 17.2 % (13.2-15.2) H 01/03/19 04:09 Plt Count 380 K/mm3 (140-440) 01/03/19 04:09 Lymph % (Auto) 10.5 % (13.4-35.0) L 01/03/19 04:09 [place] % (Auto) 10.3 % (0.0-7.3) H 01/03/19 04:09 Eos % (Auto) 1.1 % (0.0-4.3) 01/03/19 04:09 Baso % (Auto) 0.6 % (0.0-1.8) 01/03/19 04:09 Lymph # 1.0 K/mm3 (1.2-5.4) L 01/03/19 04:09 [place] # 1.0 K/mm3 (0.0-0.8) H 01/03/19 04:09 Eos # 0.1 K/mm3 (0.0-0.4) 01/03/19 04:09 Baso # 0.1 K/mm3 (0.0-0.1) 01/03/19 04:09 Seg Neutrophils % 77.5 % (40.0-70.0) H 01/03/19 04:09 Seg Neutrophils # 7.4 K/mm3 (1.8-7.7) 01/03/19 04:09 PT 15.2 Sec. (12.2-14.9) H 12/28/18 14:51 INR 1.13 (0.87-1.13) 12/28/18 14:51 APTT 38.9 Sec. (24.2-36.6) H 12/28/18 14:51 Sodium 137 mmol/L (137-145) 01/03/19 04:09 Potassium 4.6 mmol/L (3.6-5.0) 01/03/19 04:09 Chloride 98.4 mmol/L (98-107) 01/03/19 04:09 Carbon Dioxide 28 mmol/L (22-30) 01/03/19 04:09 15 mmol/L 01/03/19 04:09 BUN 13 mg/dL (9-20) 01/03/19 04:09 0.7 mg/dL (0.8-1.5) L 01/03/19 04:09 Estimated GFR > 60 ml/min 01/03/19 04:09 19 % 01/03/19 04:09 Glucose 134 mg/dL (75-100) H 01/03/19 04:09 Calcium 9.5 mg/dL (8.4-10.2) 01/03/19 04:09 0.50 mg/dL (0.1-1.2) 12/31/18 04:14 < 0.2 mg/dL (0-0.2) 12/31/18 04:14 0.3 mg/dL 12/31/18 04:14 AST 38 units/L (5-40) 12/31/18 04:14 ALT 30 units/L (7-56) 12/31/18 04:14 114 units/L (35-129) 12/31/18 04:14 NT-Pro-B Natriuret Pep 153.7 pg/mL (0-900) 12/28/18 10:55 6.7 g/dL (6.1-8.1) 12/29/18 08:33 6.8 g/dL (6.3-8.2) 12/31/18 04:14 2.8 g/dL (3.9-5) L 12/31/18 04:14 0.7 % 12/31/18 04:14 0.5 g/dL (0.2-0.3) H 12/29/18 08:33 1.2 g/dL (0.5-0.9) H 12/29/18 08:33 1.1 g/dL (0.2-0.5) H 12/29/18 08:33 0.7 g/dL (0.8-1.7) L 12/29/18 08:33 Abnorm Protein Band 1 1.1 g/dL H 12/29/18 08:33 PEP Interpretation see below H 12/29/18 08:33 6 U/mL (<34) 12/29/18 08:33 Yellow (Yellow) 12/28/18 19:00 Clear (Clear) 12/28/18 19:00 5.0 (5.0-7.0) 12/28/18 19:00 Ur Specific [place] 1.045 (1.003-1.030) H 12/28/18 19:00 <15 mg/dl mg/dL (Negative) 12/28/18 19:00 Neg mg/dL (Negative) 12/28/18 19:00 Tr mg/dL (Negative) 12/28/18 19:00 Neg (Negative) 12/28/18 19:00 Neg (Negative) 12/28/18 19:00 Neg (Negative) 12/28/18 19:00 < 2.0 mg/dL (<2.0) 12/28/18 19:00 Ur Leukocyte Esterase Tr (Negative) 12/28/18 19:00 6.0 /HPF (0.0-6.0) 12/28/18 19:00 2.0 /HPF (0.0-6.0) 12/28/18 19:00 U Epithel Cells (Auto) < 1.0 /HPF (0-13.0) 12/28/18 19:00 2+ /HPF 12/28/18 19:00 Active Medications - Current Medications Current Medications: Generic Name Dose Route Start Last Admin Trade Name Freq PRN Reason Stop Dose Admin Acetaminophen 650 mg 12/28/18 11:41 Tylenol PO Q4H PRN Pain MILD(1-3)/Fever >100.5/SKINNER Apixaban 5 mg 01/01/19 23:45 01/03/19 10:49 Eliquis PO 5 mg Q12HR IGNACIO Administration Protocol Arformoterol Tartrate 15 mcg 12/28/18 20:00 01/03/19 10:02 Brovana Nebu IH 15 mcg Q12HRT IGNACIO Administration Budesonide 0.5 mg 12/28/18 20:00 01/03/19 10:02 Pulmicort IH 0.5 mg Q12HRT IGNACIO Administration Cyclobenzaprine HCl 5 mg 12/28/18 14:37 01/02/19 03:42 Flexeril PO 5 mg Q8H PRN Administration Muscle Spasm Famotidine 20 mg 12/28/18 22:00 01/03/19 10:48 Pepcid PO 20 mg BID IGNACIO Administration Ceftriaxone Sodium 1 gm in 50 mls @ 100 mls/hr 12/28/18 12:00 01/02/19 22:48 Rocephin/Ns 1 Gm/50 Ml IV Infused Q24HR IGNACIO Infusion Protocol Levalbuterol HCl 0.63 mg 12/28/18 14:00 01/03/19 10:03 Xopenex IH Not Given TIDRT IGNACIO Metoprolol Succinate 25 mg 12/29/18 10:00 01/03/19 10:50 Toprol Xl PO 25 mg QDAY IGNACIO Administration Morphine Sulfate 2 mg 12/28/18 11:41 12/30/18 20:26 Morphine IV 2 mg Q4H PRN Administration Pain, Moderate (4-6) Morphine Sulfate 4 mg 12/29/18 14:10 Morphine IV Q4H PRN Pain , Severe (7-10) Ondansetron HCl 4 mg 12/28/18 11:41 12/28/18 16:49 Zofran IV 4 mg Q8H PRN Administration Nausea And Vomiting Oxycodone/Acetaminophen 1 tab 12/29/18 14:10 01/03/19 10:48 Percocet 5/325 PO 1 tab Q6H PRN Administration Pain, Moderate (4-6) Polyethylene Glycol 17 gm 12/29/18 10:00 01/03/19 10:51 Miralax 3350 PO 17 gm QDAY IGNACIO Administration Pravastatin Sodium 40 mg 12/28/18 22:00 01/02/19 22:44 Pravachol PO 40 mg HS IGNACIO Administration Quetiapine Fumarate 100 mg 12/28/18 22:00 01/02/19 22:44 Seroquel PO 100 mg HS IGNACIO Administration Sodium Chloride 10 ml 12/28/18 22:00 01/02/19 22:47 Sodium Chloride Flush Syringe 10 Ml IV 10 ml BID IGNACIO Administration Sodium Chloride 10 ml 12/28/18 11:41 Sodium Chloride Flush Syringe 10 Ml IV PRN PRN LINE FLUSH Tamsulosin HCl 0.4 mg 12/29/18 08:00 01/03/19 10:47 Flomax PO 0.4 mg QDAY@0800 IGNACIO Administration Tramadol HCl 50 mg 12/28/18 13:10 Ultram PO Q6HR PRN Pain
--- NOTE | 2019-01-03 11:33 | Hem/Onc Progress Note ---
Assessment and Plan Bone lesions. Radiologist suggests metastatic disease versus myeloma. There are no lesions in liver, kidneys, or pancreas. 1. Hilar lymph node present, lung opacity present. 2. For hip fracture, surgery planned. 3. myeloma investigation. 4. Mild anemia. 5. anticoagulation with Eliquis for atrial fibrillation issues. 6. History of hypertension. 7. History of heart failure. 8. History of chronic obstructive pulmonary disease. 9. History of facial skin cancers. 10. We will await the pathology report from hip surgery and follow the patient. 11. tumor markers. PSA in the clinic was normal. 12/30 - s/p rt hip sx 01/03 - rt hip pain abn M spike 1 - path pending - d/w pathologist PSA not elevated OP follow up an option - Patient Problems (1) Lytic bone lesions on xray Current Visit: Yes Status: Acute Subjective Date of service: 01/03/19 Principal diagnosis: bone lesions Interval history: d/w path team reg the path report pt sitting still has rt leg pain Objective - Constitutional Vitals: Last Vital Signs Temp 97.9 F 01/03/19 07:10 Pulse 101 H 01/03/19 10:50 Resp 18 01/03/19 07:10 BP 139/77 01/03/19 10:50 Pulse Ox 90 01/03/19 07:10 Pain Intensity (0-10): denies any pain (at rest - pain at movement) General appearance: no acute distress Performance status: 3-limited selfcare - EENT Eyes: EOM intact ENT: clear oral mucosa Lymph node exam: negative cervical - Neck Neck: normal ROM - Respiratory Respiratory effort: Positive: normal Respiratory: bilateral: CTA - Cardiovascular Heart Sounds: Present: S1 & S2 Extremities: normal temperature - Gastrointestinal General gastrointestinal: Present: soft, non-tender Rectal Exam: deferred - Genitourinary Male genitourinary: Present: deferred - Integumentary Integumentary: warm - Musculoskeletal Musculoskeletal: other (rt leg pain ) - Neurologic Neurologic: other (alert awake) - Labs Lab Results: Laboratory Results - last 24 hr 01/03/19 01/03/19 04:09 04:09 WBC 9.6 RBC 3.29 L Hgb 9.9 L Hct 30.2 L MCV 92 MCH 30 MCHC 33 RDW 17.2 H Plt Count 380 Lymph % (Auto) 10.5 L [place] % (Auto) 10.3 H Eos % (Auto) 1.1 Baso % (Auto) 0.6 Lymph # 1.0 L [place] # 1.0 H Eos # 0.1 Baso # 0.1 Seg Neutrophils % 77.5 H Seg Neutrophils # 7.4 Sodium 137 Potassium 4.6 Chloride 98.4 Carbon Dioxide 28 Anion Gap 15 BUN 13 Creatinine 0.7 L Estimated GFR > 60 BUN/Creatinine Ratio 19 Glucose 134 H Calcium 9.5 Medications & Allergies - Medications Allergies/Adverse Reactions: Allergies No Known Allergies Allergy (Verified 12/12/13 06:46) Home Medications: Home Medications Medication Instructions Recorded Confirmed Last Taken Type Apixaban [Eliquis] 5 mg PO Q12HR #60 tablet 09/20/18 12/28/18 Unknown Rx Arformoterol Nebu [Brovana Nebu] 15 mcg IH Q12HRT 30 Days #30 ml 09/20/18 12/28/18 Unknown Rx Aspirin [Aspirin BABY CHEW TAB] 81 mg PO DAILY #30 09/20/18 12/28/18 07/27/18 Rx Budesonide [Pulmicort Respules] 0.5 mg IH Q12HRT 30 Days nebu 09/20/18 12/28/18 Unknown Rx Cyclobenzaprine HCl [Flexeril 5 MG 5 mg PO TID PRN 12/28/18 12/28/18 Unknown H istory TAB] Diclofenac 1% [Diclofenac 1% 1 applic TP DAILY 12/28/18 12/28/18 Unknown History topical gel] Famotidine [Pepcid] 20 mg PO HS 12/28/18 12/28/18 Unknown History Metoprolol Xl [Metoprolol 25 mg PO QDAY 12/28/18 12/28/18 Unknown History SUCCINATE ER TAB] Pravastatin [Pravachol] 40 mg PO HS tablet 01/03/19 Unknown Rx QUEtiapine [SEROquel] 100 mg PO HS tablet 01/03/19 Unknown Rx Tamsulosin [Flomax] 0.4 mg PO QDAY@0800 capsule 01/03/19 Unknown Rx oxyCODONE /ACETAMINOPHEN [Percocet 1 tab PO Q6HR PRN #10 tablet 01/03/19 Unknown Rx 5/325 mg] Active Medications: Generic Name Dose Route Start Last Admin Trade Name Freq PRN Reason Stop Dose Admin Acetaminophen 650 mg 12/28/18 11:41 Tylenol PO Q4H PRN Pain MILD(1-3)/Fever >100.5/SKINNER Apixaban 5 mg 01/01/19 23:45 01/03/19 10:49 Eliquis PO 5 mg Q12HR IGNACIO Administration Protocol Arformoterol Tartrate 15 mcg 12/28/18 20:00 01/03/19 10:02 Brovana Nebu IH 15 mcg Q12HRT IGNACIO Administration Budesonide 0.5 mg 12/28/18 20:00 01/03/19 10:02 Pulmicort IH 0.5 mg Q12HRT IGNACIO Administration Cyclobenzaprine HCl 5 mg 12/28/18 14:37 01/02/19 03:42 Flexeril PO 5 mg Q8H PRN Administration Muscle Spasm Famotidine 20 mg 12/28/18 22:00 01/03/19 10:48 Pepcid PO 20 mg BID IGNACIO Administration Ceftriaxone Sodium 1 gm in 50 mls @ 100 mls/hr 12/28/18 12:00 01/02/19 22:48 Rocephin/Ns 1 Gm/50 Ml IV Infused Q24HR [facility] Infusion Protocol Levalbuterol HCl 0.63 mg 12/28/18 14:00 01/03/19 10:03 Xopenex IH Not Given TIDRT [facility] Metoprolol Succinate 25 mg 12/29/18 10:00 01/03/19 10:50 Toprol Xl PO 25 mg QDAY IGNACIO Administration Morphine Sulfate 2 mg 12/28/18 11:41 12/30/18 20:26 Morphine IV 2 mg Q4H PRN Administration Pain, Moderate (4-6) Morphine Sulfate 4 mg 12/29/18 14:10 Morphine IV Q4H PRN Pain , Severe (7-10) Ondansetron HCl 4 mg 12/28/18 11:41 12/28/18 16:49 Zofran IV 4 mg Q8H PRN Administration Nausea And Vomiting Oxycodone/Acetaminophen 1 tab 12/29/18 14:10 01/03/19 10:48 Percocet 5/325 PO 1 tab Q6H PRN Administration Pain, Moderate (4-6) Polyethylene Glycol 17 gm 12/29/18 10:00 01/03/19 10:51 Miralax 3350 PO 17 gm QDAY IGNACIO Administration Pravastatin Sodium 40 mg 12/28/18 22:00 01/02/19 22:44 Pravachol PO 40 mg HS IGNACIO Administration Quetiapine Fumarate 100 mg 12/28/18 22:00 01/02/19 22:44 Seroquel PO 100 mg HS IGNACIO Administration Sodium Chloride 10 ml 12/28/18 22:00 01/02/19 22:47 Sodium Chloride Flush Syringe 10 Ml IV 10 ml BID IGNACIO Administration Sodium Chloride 10 ml 12/28/18 11:41 Sodium Chloride Flush Syringe 10 Ml IV PRN PRN LINE FLUSH Tamsulosin HCl 0.4 mg 12/29/18 08:00 01/03/19 10:47 Flomax PO 0.4 mg QDAY@0800 IGNACIO Administration Tramadol HCl 50 mg 12/28/18 13:10 Ultram PO Q6HR PRN Pain
[2019-01-03] MEDS: ROCEPHIN/NS 1 GM/50 ML 1 GM/50 ML BAG IV SCH (13:34)
[2019-01-03] MEDS: SODIUM CHLORIDE FLUSH SYRINGE 10 ML IV SCH ×2 (13:36→13:37)
--- NOTE | 2019-01-03 16:10 | Discharge Summary ---
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 Additional Physician Instructions: Send out for rehab placement Consult to Physician [CONS] Routine Comment: Consulting Provider: KYLEE CALVIN Physician Instructions: Reason For Exam: bone mass Physical Therapy Evaluation and Treat [CONS] Routine Comment: Reason For Exam: weakness 12/28/18 13:01 Consult to Physician [CONS] Routine Comment: Consulting Provider: JACKSON BANERJEE Physician Instructions: Reason For Exam: COPD 12/29/18 14:14 Physical Therapy Evaluation and Treat [CONS] Routine Comment: Reason For Exam: postoperative evaluation Weight bearing status?: Full wt bearing Assistive devices?: Yes If so list: Walker 01/02/19 11:53 Occupational Therapy Evaluate and Treat [CONS] Urgent Comment: Reason For Exam: generalized weakness Primary care physician: WIRE BENDER Hospitalization Condition: Fair Hospital course: Patient is 73 YO Male with COPD, PVD, HTN, HLD, Seizure Disorder, Skin Cancer, Atrial Fib on Therapeutic Anticoagulation, CHF, OA presented to ED for evaluation. Pt stated that he slipped while getting into his bathtub, and fell. He complained of severe pain in his right hip and was unable to stand and bear weight on his hip immediately after the fall. He was seen and evaluated in ED and found to have a suspected Pathologic Right hip fracture. Pt admitted to Surgical floor. He had right bipolar hemiarthroplasty by Dr. Fischer on 12/29/2018. CT revealed multiple lytic lesions in thoracolumbar spine, pelvis,femurs and pathologic fracture right hip. He is admitted evaluated by pulmonology cardiology and oncology. Oncologist statedpicture likely multiple enema or bone metastases. He recommended outpatient follow-up. Patient was subsequently discharged on 01/04/2019 to follow as an outpatient. Total time spent on discharge, 35 mins Disposition: [id number] HOME UNDER HOME HLTH - Discharge Diagnoses (1) Bone lesion Status: Acute (2) COPD (chronic obstructive pulmonary disease) Status: Acute (3) Debility Status: Acute (4) Femoral neck fracture Status: Acute Qualifiers: Encounter type: initial encounter Fracture type: closed Laterality: right Qualified Code(s): S72.001A - Fracture of unspecified part of neck of right femur, initial encounter for closed fracture (5) HTN (hypertension) Status: Acute Qualifiers: Hypertension type: essential hypertension Qualified Code(s): I10 - Essential (primary) hypertension (6) PAF (paroxysmal atrial fibrillation) Status: Acute (7) Hypertension Status: Acute (8) Pneumonia Status: Acute (9) Malignancy Status: Acute Core Measure Documentation - Palliative Care Palliative Care/ Comfort Measures: Not Applicable - Core Measures Any of the following diagnoses?: none Exam - Constitutional Vitals: Temp Pulse Resp BP Pulse Ox 98.1 F 92 H 18 97/58 96 01/03/19 11:25 01/03/19 15:17 01/03/19 15:17 01/03/19 11:25 01/03/19 11:25 Plan Activity: advance as tolerated Diet: low fat, low cholesterol, low salt Special Instructions: physical therapy, home health RN Additional Instructions: 1.Follow up with PCP in 1 week. 2.Follow up with Dr. Fischer,. Ortho in 1 week. 3.Follow up with Dr. Calvin, Oncology in 1 week. 4.Follow up with Dr. Bender in 1 week Follow up with: PRIMARY CARE, [Primary Care Provider] - 7 Days Prescriptions: oxyCODONE /ACETAMINOPHEN [Percocet 5/325 mg] 1 tab PO Q6HR PRN #10 tablet PRN Reason: Pain
[2019-01-03] MEDS: PRAVACHOL PO SCH (21:54)
[2019-01-04] MEDS: SODIUM CHLORIDE FLUSH SYRINGE 10 ML IV SCH ×2 (04:01→11:18)
--- NOTE | 2019-01-04 07:39 | Hem/Onc Progress Note ---
Assessment and Plan Bone lesions. Radiologist suggests metastatic disease versus myeloma. There are no lesions in liver, kidneys, or pancreas. 1. Hilar lymph node present, lung opacity present. 2. For hip fracture, surgery planned. 3. myeloma investigation. 4. Mild anemia. 5. anticoagulation with Eliquis for atrial fibrillation issues. 6. History of hypertension. 7. History of heart failure. 8. History of chronic obstructive pulmonary disease. 9. History of facial skin cancers. 10. We will await the pathology report from hip surgery and follow the patient. 11. tumor markers. PSA in the clinic was normal. 12/30 - s/p rt hip sx 01/04 - rt hip pain abn M spike 1 - path pending PSA not elevated OP follow up an option 01/04 - path called to say - no plasmacytoma - but needs to be tested for myeloma - Patient Problems (1) Lytic bone lesions on xray Status: Acute Subjective Date of service: 01/04/19 Principal diagnosis: bone lesions Interval history: trying to walk with walker Objective - Constitutional Vitals: Last Vital Signs Temp 97.6 F 01/04/19 04:01 Pulse 96 H 01/04/19 04:01 Resp 17 01/04/19 04:01 BP 120/65 01/04/19 04:01 Pulse Ox 90 01/04/19 04:01 Pain Intensity (0-10): 1/10 (rt hip) General appearance: no acute distress Performance status: 3-limited selfcare - EENT Eyes: PERRL, EOM intact ENT: clear oral mucosa Lymph node exam: negative cervical - Neck Neck: supple, normal ROM - Respiratory Respiratory effort: Positive: normal Respiratory: bilateral: CTA - Cardiovascular Heart Sounds: Present: S1 & S2 Extremities: normal temperature - Gastrointestinal General gastrointestinal: Present: soft, non-tender Rectal Exam: deferred - Genitourinary Male genitourinary: Present: deferred - Integumentary Integumentary: warm - Musculoskeletal Musculoskeletal: other (rt hip pain ) - Neurologic Neurologic: moves all extremities (rt leg pain +) - Psychiatric Psychiatric: appropriate mood/affect Medications & Allergies - Medications Allergies/Adverse Reactions: Allergies No Known Allergies Allergy (Verified 12/12/13 06:46) Home Medications: Home Medications Medication Instructions Recorded Confirmed Last Taken Type Apixaban [Eliquis] 5 mg PO Q12HR #60 tablet 09/20/18 12/28/18 Unknown Rx Arformoterol Nebu [Brovana Nebu] 15 mcg IH Q12HRT 30 Days #30 ml 09/20/18 12/28/18 Unknown Rx Aspirin [Aspirin BABY CHEW TAB] 81 mg PO DAILY #30 09/20/18 12/28/18 07/27/18 Rx Budesonide [Pulmicort Respules] 0.5 mg IH Q12HRT 30 Days nebu 09/20/18 12/28/18 Unknown Rx Cyclobenzaprine HCl [Flexeril 5 MG 5 mg PO TID PRN 12/28/18 12/28/18 Unknown History TAB] Diclofenac 1% [Diclofenac 1% 1 applic TP DAILY 12/28/18 12/28/18 Unknown History topical gel] Famotidine [Pepcid] 20 mg PO HS 12/28/18 12/28/18 Unknown History Metoprolol Xl [Metoprolol 25 mg PO QDAY 12/28/18 12/28/18 Unknown History SUCCINATE ER TAB] Pravastatin [Pravachol] 40 mg PO HS tablet 01/03/19 Unknown Rx QUEtiapine [SEROquel] 100 mg PO HS tablet 01/03/19 Unknown Rx Tamsulosin [Flomax] 0.4 mg PO QDAY@0800 capsule 01/03/19 Unknown Rx oxyCODONE /ACETAMINOPHEN [Percocet 1 tab PO Q6HR PRN #10 tablet 01/03/19 Unknown Rx 5/325 mg] Active Medications: Generic Name Dose Route Start Last Admin Trade Name Freq PRN Reason Stop Dose Admin Acetaminophen 650 mg 12/28/18 11:41 Tylenol PO Q4H PRN Pain MILD(1-3)/Fever >100.5/SKINNER Apixaban 5 mg 01/01/19 23:45 01/03/19 21:54 Eliquis PO 5 mg Q12HR IGNACIO Administration Protocol Arformoterol Tartrate 15 mcg 12/28/18 20:00 01/03/19 21:02 Brovana Nebu IH 15 mcg Q12HRT IGNACIO Administration Budesonide 0.5 mg 12/28/18 20:00 01/03/19 21:02 Pulmicort IH 0.5 mg Q12HRT IGNACIO Administration Cyclobenzaprine HCl 5 mg 12/28/18 14:37 01/02/19 03:42 Flexeril PO 5 mg Q8H PRN Administration Muscle Spasm Famotidine 20 mg 12/28/18 22:00 01/03/19 21:54 Pepcid PO 20 mg BID IGNACIO Administration Ceftriaxone Sodium 1 gm in 50 mls @ 100 mls/hr 12/28/18 12:00 01/03/19 13:34 Rocephin/Ns 1 Gm/50 Ml IV 100 mls/hr Q24HR IGNACIO Administration Protocol Levalbuterol HCl 0.63 mg 12/28/18 14:00 01/03/19 21:02 Xopenex IH Not Given TIDRT IGNACIO Metoprolol Succinate 25 mg 12/29/18 10:00 01/03/19 10:50 Toprol Xl PO 25 mg QDAY IGNACIO Administration Morphine Sulfate 2 mg 12/28/18 11:41 12/30/18 20:26 Morphine IV 2 mg Q4H PRN Administration Pain, Moderate (4-6) Morphine Sulfate 4 mg 12/29/18 14:10 Morphine IV Q4H PRN Pain , Severe (7-10) Ondansetron HCl 4 mg 12/28/18 11:41 12/28/18 16:49 Zofran IV 4 mg Q8H PRN Administration Nausea And Vomiting Oxycodone/Acetaminophen 1 tab 12/29/18 14:10 01/03/19 21:54 Percocet 5/325 PO 1 tab Q6H PRN Administration Pain, Moderate (4-6) Polyethylene Glycol 17 gm 12/29/18 10:00 01/03/19 10:51 Miralax 3350 PO 17 gm QDAY IGNACIO Administration Pravastatin Sodium 40 mg 12/28/18 22:00 01/03/19 21:54 Pravachol PO 40 mg HS IGNACIO Administration Quetiapine Fumarate 100 mg 12/28/18 22:00 01/03/19 21:54 Seroquel PO 100 mg HS IGNACIO Administration Sodium Chloride 10 ml 12/28/18 22:00 01/04/19 04:01 Sodium Chloride Flush Syringe 10 Ml IV 10 ml BID IGNACIO Administration Sodium Chloride 10 ml 12/28/18 11:41 Sodium Chloride Flush Syringe 10 Ml IV PRN PRN LINE FLUSH Tamsulosin HCl 0.4 mg 12/29/18 08:00 01/03/19 10:47 Flomax PO 0.4 mg QDAY@0800 IGNACIO Administration Tramadol HCl 50 mg 12/28/18 13:10 Ultram PO Q6HR PRN Pain
[2019-01-04] MEDS: PULMICORT IH SCH (09:30)
[2019-01-04] MEDS: BROVANA NEBU IH SCH (09:30)
--- NOTE | 2019-01-04 10:06 | Event Note ---
Date: 01/04/19 Patient discharge today. I have seen and examined him.
[2019-01-04] MEDS: PERCOCET 5/325 PO PRN (11:13)
[2019-01-04] MEDS: ELIQUIS PO SCH (11:14)
[2019-01-04] MEDS: PEPCID PO SCH (11:14)
[2019-01-04] MEDS: TOPROL XL PO SCH (11:15)
[2019-01-04] MEDS: MIRALAX 3350 PO SCH (11:16)
[2019-01-04] MEDS: ROCEPHIN/NS 1 GM/50 ML 1 GM/50 ML BAG IV SCH (11:16)
[2019-01-04] MEDS: DICLOFENAC 1% TP SCH (11:17)
[2019-01-04 11:18] LABS: Basophils # (Auto) 0.1 K/mm3 (0.0-0.1); Basophils % (Auto) 0.8 % (0.0-1.8); Eosinophils % (Auto) 0.2 % (0.0-4.3); Hematocrit 33.4 % (35.5-45.6); Hemoglobin 10.7 gm/dl (11.8-15.2); Lymphocytes # (Auto) 0.9 K/mm3 (1.2-5.4); Lymphocytes % (Auto) 6.8 % (13.4-35.0); Mean Corpuscular HGB Conc 32 % (32-34); Mean Corpuscular Volume 93 fl (84-94); Monocytes # (Auto) 1.2 K/mm3 (0.0-0.8); Monocytes % (Auto) 9.2 % (0.0-7.3); Platelet Count 495 K/mm3 (140-440); Red Cell Distribution Width 17.6 % (13.2-15.2)
[2019-01-04] MEDS: FLOMAX PO SCH (11:21)
[2019-01-04 11:50] LABS: BUN/Creatinine Ratio 23; Blood Urea Nitrogen 21 mg/dL (9-20); Calcium 9.8 mg/dL (8.4-10.2); Hemolysis Index 13
[2019-01-04] MEDS: XOPENEX IH SCH ×2 (15:34→17:15)
[2019-01-04 16:42] VITALS: BP 120/72
--- NOTE | 2019-01-04 17:45 | Progress Note ---
Assessment and Plan Patient status post right leg surgery. Patient under gone BIpolar hip replacement. on 4 litres O2. O2 saturation 95%. No acute respiratory distress. Patient has venous doppler studies of legs reported negative for DVT. Patient going home with home health and rehab. Patient is on home O2 4 litres via nasal canula. Recommend to come to my office in 2 or 3 weeks for pulmonary follow up. - Patient Problems (1) Acute respiratory failure Current Visit: No Status: Acute Qualifiers: Respiratory failure complication: hypoxia Qualified Code(s): J96.01 - Acute respiratory failure with hypoxia Plan to address problem: O2 4 litres via nasal canula. Albuterol/atrovent aerosol treatments q 6 hours. Patient is going home on eliquis. Patient is on ceftrioxone. Continue famotidine. (2) Atrial fibrillation Current Visit: No Status: Acute Qualifiers: Atrial fibrillation type: persistent Qualified Code(s): I48.1 - Persistent atrial fibrillation Plan to address problem: Patient going home on eliquis.. Management as per cardiology. (3) Femoral neck fracture Current Visit: Yes Status: Acute Qualifiers: Encounter type: initial encounter Fracture type: closed Laterality: right Qualified Code(s): S72.001A - Fracture of unspecified part of neck of right femur, initial encounter for closed fracture Plan to address problem: Patient undergone Bipolar hip replacement. (4) HTN (hypertension) Current Visit: Yes Status: Acute Qualifiers: Hypertension type: essential hypertension Qualified Code(s): I10 - Essential (primary) hypertension Plan to address problem: Management as per primary care. (5) Hip fracture Current Visit: Yes Status: Acute Qualifiers: Encounter type: initial encounter Fracture type: closed Laterality: right Qualified Code(s): S72.001A - Fracture of unspecified part of neck of right femur, initial encounter for closed fracture Plan to address problem: Patient undergone bipolar hip replacement. (6) ARF (acute renal failure) with tubular necrosis Current Visit: No Status: Acute Plan to address problem: Management as per nephrology. (7) COPD exacerbation Current Visit: No Status: Acute Plan to address problem: O2 4 litres via nasal canula. Albuterol/atrovent aerosol treatments q 6 hours. desinide aerosol treatments q 12 hours. Patient is on Apixaban Patient is on ceftrioxone. Continue famotidine. (8) Cavitary lesion of lung Current Visit: No Status: Acute Plan to address problem: CTof chst done 12/28/18 reported Emphysema. Atelectatic changes in the lower lung zones and right apical scarring. Questionable right perihilar density . Mildly enlarged right hilar lymph nodes. Multiple lytic bony lesions consistent with a metastatic process or multiple myeloma. Subjective Date of service: 01/04/19 Principal diagnosis: bone lesions Interval history: Patient status post right leg surgery. Patient under gone BIpolar hip replacement. on 4 litres O2. O2 saturation 95%. No acute respiratory distress. Patient has venous doppler studies of legs reported negative for DVT. Patient going home with home health and rehab. Patient is on home O2 4 litres via nasal canula. Recommend to come to my office in 2 or 3 weeks for pulmonary follow up. Objective Vital Signs - 12hr 01/04/19 01/04/19 01/04/19 08:48 09:24 09:25 Temperature Pulse Rate 114 H Pulse Rate [ 96 H Anterior Bilateral Throughout] Respiratory Rate Respiratory 19 Rate [Anterior Bilateral Throughout] Blood Pressure O2 Sat by Pulse 91 95 Oximetry 01/04/19 01/04/19 01/04/19 09:40 11:13 15:28 Temperature 98.3 F Pulse Rate 95 H Pulse Rate [ 95 H Anterior Bilateral Throughout] Respiratory 17 18 Rate Respiratory 16 Rate [Anterior Bilateral Throughout] Blood Pressure 120/72 O2 Sat by Pulse 95 Oximetry 01/04/19 01/04/19 17:16 17:27 Temperature Pulse Rate Pulse Rate [ 99 H 101 H Anterior Bilateral Throughout] Respiratory Rate Respiratory 19 20 Rate [Anterior Bilateral Throughout] Blood Pressure O2 Sat by Pulse Oximetry Constitutional: no acute distress, alert Eyes: non-icteric ENT: oropharynx moist Neck: supple, no JVD Ascultation: Bilateral: diminished breath sounds Cardiovascular: irregular rhythm Gastrointestinal: normoactive bowel sounds, soft, non-tender Integumentary: normal Extremities: no cyanosis, no edema, other (S/P repair of right leg fracture.) Neurologic: normal mental status, pupils equal and round Psychiatric: mood appropriate CBC and BMP: 01/04/19 11:01 01/04/19 11:01 ABG, PT/INR, D-dimer: PT/INR, D-dimer PT 15.2 Sec. (12.2-14.9) H 12/28/18 14:51 INR 1.13 (0.87-1.13) 12/28/18 14:51 Abnormal lab findings: Abnormal Labs 12/28/18 12/28/18 12/28/18 10:55 10:55 14:51 WBC 14.1 H RBC Hgb 11.2 L 10.8 L Hct 34.6 L 33.2 L RDW 17.2 H Plt Count Lymph % (Auto) Wallace % (Auto) Lymph # Wallace # Seg Neutrophils % Seg Neutrophils # PT APTT Chloride BUN Creatinine Glucose 145 H Albumin Kevns-0-Vjrozvlyr Eusny-3-Uecfzaqss Beta Globulins Gamma Globulins Abnorm Protein Band 1 PEP Interpretation Ur Specific Ringle Immunofix Electrophor 12/28/18 12/28/18 12/29/18 14:51 19:00 08:33 WBC RBC Hgb Hct RDW Plt Count Lymph % (Auto) Wallace % (Auto) Lymph # Wallace # Seg Neutrophils % Seg Neutrophils # PT 15.2 H APTT 38.9 H Chloride BUN Creatinine Glucose Albumin Ytixm-1-Kxkqhkohi Hiwbo-3-Wsrsvwewa Beta Globulins Gamma Globulins Abnorm Protein Band 1 PEP Interpretation Ur Specific Ringle 1.045 H Immunofix Electrophor see below H 12/29/18 12/30/18 12/31/18 08:33 04:06 04:14 WBC RBC Hgb 10.4 L Hct 32.2 L RDW Plt Count Lymph % (Auto) Wallace % (Auto) Lymph # Wallace # Seg Neutrophils % Seg Neutrophils # PT APTT Chloride BUN Creatinine 0.7 L Glucose 125 H Albumin 2.7 L 2.8 L Irefc-0-Afdtxctvt 0.5 H Gwtiy-6-Udvqyacti 1.2 H Beta Globulins 1.1 H Gamma Globulins 0.7 L Abnorm Protein Band 1 1.1 H PEP Interpretation see below H Ur Specific Ringle Immunofix Electrophor 01/01/19 01/02/19 01/02/19 04:39 05:35 05:35 WBC RBC 3.23 L Hgb 8.8 L 9.7 L Hct 26.5 L 29.6 L RDW 17.1 H Plt Count Lymph % (Auto) 7.2 L Wallace % (Auto) 9.3 H Lymph # 0.7 L Wallace # 0.9 H Seg Neutrophils % 82.4 H Seg Neutrophils # 8.3 H PT APTT Chloride BUN Creatinine 0.6 L Glucose 141 H Albumin Aftrz-2-Vyqyvaikg Ksldz-6-Vkbnphhkq Beta Globulins Gamma Globulins Abnorm Protein Band 1 PEP Interpretation Ur Specific Ringle Immunofix Electrophor 01/03/19 01/03/19 01/04/19 04:09 04:09 11:01 WBC 12.6 H RBC 3.29 L 3.60 L Hgb 9.9 L 10.7 L Hct 30.2 L 33.4 L RDW 17.2 H 17.6 H Plt Count 495 H Lymph % (Auto) 10.5 L 6.8 L Wallace % (Auto) 10.3 H 9.2 H Lymph # 1.0 L 0.9 L Wallace # 1.0 H 1.2 H Seg Neutrophils % 77.5 H 83.0 H Seg Neutrophils # 10.5 H PT APTT Chloride BUN Creatinine 0.7 L Glucose 134 H Albumin Jaehs-0-Ryvbslqwg Barwr-1-Ckvzisdcf Beta Globulins Gamma Globulins Abnorm Protein Band 1 PEP Interpretation Ur Specific Ringle Immunofix Electrophor 01/04/19 11:01 WBC RBC Hgb Hct RDW Plt Count Lymph % (Auto) Wallace % (Auto) Lymph # Wallace # Seg Neutrophils % Seg Neutrophils # PT APTT Chloride 95.3 L BUN 21 H Creatinine Glucose 138 H Albumin Lvqrj-4-Wltznxlsu Iseap-1-Bckahskmb Beta Globulins Gamma Globulins Abnorm Protein Band 1 PEP Interpretation Ur Specific Ringle Immunofix Electrophor
[2019-01-05 08:41] LABS: Abnormal Protein Band 1 SEE SCANNED RESULT; Abnormal Protein Band 2 SEE SCANNED RESULT; Albumin SEE SCANNED RESULT; Creatinine, Random Urine SEE SCANNED RESULT; Gamma Globulin SEE SCANNED RESULT; Interpretation SEE SCANNED RESULT; Protein/Creatinine Ratio SEE SCANNED RESULT
== END 2019-01-04 18:30 | disposition home health service (06) | DRG 469 ==
LOC: ED 09:19 → 3B-SURG 11:41
PROVIDERS: ADMIT Internal Medicine; ATTEND Internal Medicine
PROC: 0SRR0JZ Replacement of Right Hip Joint, Femoral Surface with Synthetic Substitute, Open Approach (ICD-10-PCS; principal; 2018-12-29)
DX: S72.001A Fracture of unspecified part of neck of right femur, initial encounter for closed fracture (principal); J96.01 Acute respiratory failure with hypoxia; N17.0 Acute kidney failure with tubular necrosis; J18.1 Lobar pneumonia, unspecified organism; I48.1 Persistent atrial fibrillation; R65.10 Systemic inflammatory response syndrome (SIRS) of non-infectious origin without acute organ dysfunction; C90.00 Multiple myeloma not having achieved remission; K21.9 Gastro-esophageal reflux disease without esophagitis; I11.0 Hypertensive heart disease with heart failure; I73.9 Peripheral vascular disease, unspecified; G40.909 Epilepsy, unspecified, not intractable, without status epilepticus; M19.90 Unspecified osteoarthritis, unspecified site; I50.9 Heart failure, unspecified; W01.0XXA Fall on same level from slipping, tripping and stumbling without subsequent striking against object, initial encounter; E78.5 Hyperlipidemia, unspecified; J43.9 Emphysema, unspecified; R91.1 Solitary pulmonary nodule; M89.9 Disorder of bone, unspecified; D64.9 Anemia, unspecified; Z87.891 Personal history of nicotine dependence; Z72.89 Other problems related to lifestyle; Z85.828 Personal history of other malignant neoplasm of skin; Z79.01 Long term (current) use of anticoagulants; I25.2 Old myocardial infarction; Z82.49 Family history of ischemic heart disease and other diseases of the circulatory system; Z79.899 Other long term (current) drug therapy; Z79.82 Long term (current) use of aspirin; Z86.718 Personal history of other venous thrombosis and embolism; Y93.89 Activity, other specified; Y92.091 Bathroom in other non-institutional residence as the place of occurrence of the external cause; Y99.8 Other external cause status
CPT/HCPCS: 36415; 71045; 71270; 74178; 80048; 80076; 81001; 82378; 83880; 84154; 84165; 84166; 85014; 85018; 85025; 85027; 85049; 85610; 85730; 86301; 86334; 87040; 88305; 88307; 88311; 88313; 88341; 88342; 93005; 93010; 93970; 94640; 94760; 96374; 96376; 99291; G0378; A4217; A9270-GY; C1776; J0696; J1100; J1170; J1650; J1885; J2270; J2370; J2405; J2704; J3010; J3246; J7030; Q9967

== ENCOUNTER 2019-01-26 11:38 | Outpatient (CLI) | payer BC, MEDICARE ==
--- NOTE | 2019-01-27 11:05 | PET Report ---
PET/CT:01/26/19 11:38:00 CLINICAL: Bone metastases RADIOPHARMACEUTICAL: 13.745mCi F18-FDG. COMPARISON: CT CAP 12/28/18 TECHNIQUE- Following intravenous injection of F-18 FDG and an approximately 60 minute uptake period, CT and PET images from the mid skull to the upper thighs were acquired with the patient in the fasted state. No contrast was administered. The CT protocol used for this PET CT study is designed for attenuation correction and anatomic localization of PET abnormalities. This production control planner CT is not desired to produce and cannot replace, aswya-mb-ipp-art diagnostic CT scans with specific imaging protocols for different body parts and indications. Plasma glucose at the time of this test: 147g/dl. The standardized uptake values (SUV) are normalized to patient body weight and indicate the highest activity concentration (SUV max) in a given disease site. FINDINGS: Brain--Physiologic FDG uptake in the visualized regions of the brain. Neck--Bilateral inferior FDG avid jugular chain lymph nodes. The largest is on the right and measures 1.5 x 0.9 cm with SUV 9.7. At the same level, a 1 cm FDG avid left lower cervical lymph node with SUV 5.7. Physiologic FDG uptake in mucosal structures. Chest--Physiologic FDG uptake in mediastinal blood pool and myocardium. Lungs--Severe emphysema. An FDG avid right suprahilar mass contiguous to the medial pleura measures approximately 3.2 x 2.0 cm with SUV 5.8. An FDG avid right middle lobe lung nodule measures 1.8 x 1.1 cm with SUV 5.2. No other lung nodule or mass. Pleura/pericardium--No abnormal uptake. A small left pleural effusion. Thoracic nodes--Multiple FDG avid mediastinal and right hilar lymph nodes. A superior mediastinal pretracheal lymph node with SUV 6.7. A precarinal lymph node with SUV 8.0. Right hilar lymph nodes with SUV 5.5, 6.6 and 6.6. Hepatobiliary--A single focus of suspicious FDG uptake in the inferior right hepatic lobe with SUV 5.2. No distinct lesion is identified on CT. Liver background SUV mean, as a reference for comparing FDG studies, is 3.9 . Spleen--No abnormal uptake. Pancreas--No abnormal uptake. Adrenal Glands--a right adrenal mass measures 1.7 x 1.2 cm with SUV 11.7. Kidneys/Ureters/Bladder--No abnormal uptake. Abdominopelvic Nodes--No abnormal uptake. Bowel/Peritoneum/Mesentery--No abnormal uptake. Pelvic organs--No abnormal uptake. Bones/Soft Tissues--2 numerous to count FDG avid lytic skeletal lesions involving the cervical, thoracic and lumbar spine, bilateral ribs,, clavicles, scapulae, right humerus, pelvic bones and left femoral neck. A large FDG avid lytic lesion of the left femoral neck suggests a high risk for fracture. In addition, lytic destruction of right pedicles at T11 and T5. No apparent spinal canal encroachment. IMPRESSION- 1. 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 2. A large lytic metastasis of the left femoral neck with a high risk for impending fracture. 3. Lytic destruction of the right pedicles at T11 and T5 but no obvious extension into the spinal canal.
== END 2019-01-26 11:39 | disposition home or self-care (01) ==
LOC: PET 11:38
PROVIDERS: ATTEND Internal Medicine Hematology & Oncology
DX: C79.51 Secondary malignant neoplasm of bone (principal); C78.00 Secondary malignant neoplasm of unspecified lung; J90 Pleural effusion, not elsewhere classified; J43.9 Emphysema, unspecified; I11.0 Hypertensive heart disease with heart failure; I50.9 Heart failure, unspecified; E78.00 Pure hypercholesterolemia, unspecified; K21.9 Gastro-esophageal reflux disease without esophagitis
CPT/HCPCS: 78815; 82962; A9552

== ENCOUNTER 2019-01-27 13:32 | Emergency (ER) | payer BC, MEDICARE ==
--- NOTE | 2019-01-27 13:43 | Event Note ---
ED Screening Note ED Screening Note: SENT BY MD MCDONALD PET YESTERDAY SEE IMAGE CONCERN FOR HIP LESION This initial assessment/diagnostic orders/clinical plan/treatment(s) is/are subject to change based on patients health status, clinical progression and re- assessment by fellow clinical providers in the ED. Further treatment and workup at subsequent clinical providers discretion. Patient/guardian urged not to elope from the ED as their condition may be serious if not clinically assessed and managed. Initial orders include: TO MAIN LABS LIKELY ADMIT
[2019-01-27 14:36] LABS: Hematocrit 30.5 % (35.5-45.6); Hemoglobin 9.8 gm/dl (11.8-15.2); Mean Corpuscular HGB Conc 32 % (32-34); Mean Corpuscular Volume 94 fl (84-94); Platelet Count 434 K/mm3 (140-440); Red Blood Count 3.24 M/mm3 (3.65-5.03)
[2019-01-27 14:44] LABS: Alanine Aminotransferase 11 units/L (7-56); Albumin 2.6 g/dL (3.9-5); BUN/Creatinine Ratio 23; Blood Urea Nitrogen 16 mg/dL (9-20); Calcium 8.4 mg/dL (8.4-10.2); Hemolysis Index 17; Red Cell Distribution Width 20.1 % (13.2-15.2)
--- NOTE | 2019-01-27 16:27 | Emergency Department Report ---
ED General Adult HPI - General Chief complaint: Extremity Problem,Nontraumatic Stated complaint: (L) HIP PAIN/SENT BY Time Seen by Provider: 01/27/19 13:41 Source: patient Mode of arrival: Ambulatory Limitations: No Limitations - History of Present Illness Initial comments: 73 yo M with hx of metastatic cancer sent to the ED for left hip mass. Pt had PET scan yesterday, states oncologist, Dr Cottrell, advised hime to come to ED b/c scan showed large lytic lesion of left femoral neck with high risk for impending fracture. Pt recently had fracture of right hip and subsequent hip replacement after fall on that hip which also had a tumor. Pt states this time, left hip pain is not as bad as the right hip was previously. Pt able to ambulate with cane. Location: left, lower extremity Severity scale (0 -10): 7 Quality: aching Consistency: intermittent Associated Symptoms: denies other symptoms - Related Data Home Medications Medication Instructions Recorded Confirmed Last Taken Cyclobenzaprine HCl [Flexeril 5 MG 5 mg PO TID PRN 12/28/18 12/28/18 Unknown TAB] Diclofenac 1% [Diclofenac 1% 1 applic TP DAILY 12/28/18 01/27/19 Unknown topical gel] Famotidine [Pepcid] 20 mg PO HS 12/28/18 01/27/19 Unknown Metoprolol Xl [Metoprolol 25 mg PO QDAY 12/28/18 01/27/19 Unknown SUCCINATE ER TAB] Previous Rx's Medication Instructions Recorded Last Taken Type Apixaban [Eliquis] 5 mg PO Q12HR #60 tablet 09/20/18 Unknown Rx Arformoterol Nebu [Brovana Nebu] 15 mcg IH Q12HRT 30 Days #30 ml 09/20/18 Unknown Rx Aspirin [Aspirin BABY CHEW TAB] 81 mg PO DAILY #30 09/20/18 07/27/18 Rx Budesonide [Pulmicort Respules] 0.5 mg IH Q12HRT 30 Days nebu 09/20/18 Unknown Rx Pravastatin [Pravachol] 40 mg PO HS tablet 01/03/19 Unknown Rx QUEtiapine [SEROquel] 100 mg PO HS tablet 01/03/19 Unknown Rx Tamsulosin [Flomax] 0.4 mg PO QDAY@0800 capsule 01/03/19 Unknown Rx oxyCODONE /ACETAMINOPHEN [Percocet 1 tab PO Q6HR PRN #10 tablet 01/03/19 Unknown Rx 5/325 mg] Allergies Allergy/AdvReac Type Severity Reaction Status Date / Time No Known Allergies Allergy Verified 12/12/13 06:46 ED Review of Systems ROS: Stated complaint: (L) HIP PAIN/SENT BY Other details as noted in HPI Comment: All other systems reviewed and negative Musculoskeletal: arthralgia ED Past Medical Hx - Past Medical History Hx Hypertension: Yes Hx Heart Attack/AMI: No Hx Congestive Heart Failure: Yes Hx Deep Vein Thrombosis: Yes Hx Liver Disease: No Hx Renal Disease: No Hx Sickle Cell Disease: No Hx Arthritis: Yes Hx Seizures: No Hx Asthma: No Hx COPD: Yes Additional medical history: Skin cancer - Surgical History Hx Pacemaker: No Hx Internal Defibrillator: No Additional Surgical History: Vein bypass- Right Leg - Social History Smoking Status: Former Smoker - Medications Home Medications: Home Medications Medication Instructions Recorded Confirmed Last Taken Type Apixaban [Eliquis] 5 mg PO Q12HR #60 tablet 09/20/18 01/27/19 Unknown Rx Arformoterol Nebu [Brovana Nebu] 15 mcg IH Q12HRT 30 Days #30 ml 09/20/18 12/28/18 Unknown Rx Aspirin [Aspirin BABY CHEW TAB] 81 mg PO DAILY #30 09/20/18 01/27/19 07/27/18 Rx Budesonide [Pulmicort Respules] 0.5 mg IH Q12HRT 30 Days nebu 09/20/18 12/28/18 Unknown Rx Cyclobenzaprine HCl [Flexeril 5 MG 5 mg PO TID PRN 12/28/18 12/28/18 Unknown History TAB] Diclofenac 1% [Diclofenac 1% 1 applic TP DAILY 12/28/18 01/27/19 Unknown History topical gel] Famotidine [Pepcid] 20 mg PO HS 12/28/18 01/27/19 Unknown History Metoprolol Xl [Metoprolol 25 mg PO QDAY 12/28/18 01/27/19 Unknown History SUCCINATE ER TAB] Pravastatin [Pravachol] 40 mg PO HS tablet 01/03/19 01/27/19 Unknown Rx QUEtiapine [SEROquel] 100 mg PO HS tablet 01/03/19 Unknown Rx Tamsulosin [Flomax] 0.4 mg PO QDAY@0800 capsule 01/03/19 01/27/19 Unknown Rx oxyCODONE /ACETAMINOPHEN [Percocet 1 tab PO Q6HR PRN #10 tablet 01/03/19 01/27/19 Unknown Rx 5/325 mg] ED Physical Exam - General Limitations: No Limitations General appearance: alert, in no apparent distress - Head Head exam: Present: atraumatic, normocephalic - Eye Eye exam: Present: normal appearance - ENT ENT exam: Present: mucous membranes moist - Neck Neck exam: Present: normal inspection - Respiratory Respiratory exam: Present: normal lung sounds bilaterally. Absent: respiratory distress - Cardiovascular Cardiovascular Exam: Present: regular rate, normal rhythm - GI/Abdominal GI/Abdominal exam: Absent: distended - Extremities Exam Extremities exam: Present: normal inspection - Neurological Exam Neurological exam: Present: alert, oriented X3 - Psychiatric Psychiatric exam: Present: normal affect, normal mood - Skin Skin exam: Present: warm, dry, intact, normal color ED Course Vital Signs 01/27/19 01/27/19 13:42 17:33 Temperature 97.8 F Pulse Rate 96 H 88 Respiratory 20 20 Rate Blood Pressure 116/58 135/70 [Right] O2 Sat by Pulse 85 Oximetry - Consultations Consultation #1: 01/27/19 16:20 Spoke w/ Dr Fischer, who performed pt's previous surgery. States pt can foloow up in his office. No emergent surgical intervention necessary at this time. ED Medical Decision Making - Lab Data Result diagrams: 01/27/19 14:01 01/27/19 14:01 - Radiology Data Radiology results: report reviewed - Medical Decision Making Pt advised to be very careful so as to avoid falling and possibly fracturing left hip. Advised to f/u with Dr Fischer next week. - Differential Diagnosis bone mass Critical care attestation.: If time is entered above; I have spent that time in minutes in the direct care of this critically ill patient, excluding procedure time. ED Disposition Clinical Impression: Bone lesion Disposition: - TO HOME OR SELFCARE Is pt being admited?: No Condition: Stable Referrals: DERRICK FISCHER MD [Staff Physician] - 3-5 Days Time of Disposition: 16:23
[2019-01-27 17:34] VITALS: BP 135/70
== END 2019-01-27 17:33 | disposition home or self-care (01) ==
LOC: ED 13:32
DX: M89.9 Disorder of bone, unspecified (principal); I11.0 Hypertensive heart disease with heart failure; I50.9 Heart failure, unspecified; M19.90 Unspecified osteoarthritis, unspecified site; J44.9 Chronic obstructive pulmonary disease, unspecified; Z87.891 Personal history of nicotine dependence
CPT/HCPCS: 36415; 80053; 85027

== ENCOUNTER 2019-02-14 13:23 | Emergency (ER) | payer BC, MEDICARE ==
[2019-02-14] MEDS ORDERED: PERCOCET 5/325 PO ONE (13:51)
--- NOTE | 2019-02-14 13:55 | Emergency Department Report ---
ED Fall HPI - General Chief Complaint: Fall Stated Complaint: RT HIP PAIN Time Seen by Provider: 02/14/19 13:48 Source: patient, EMS Mode of arrival: Stretcher - History of Present Illness Initial Comments: Mrs. Avitia is a 73 yo male with hx of dyslipidemia, peripheral vascular disease, hypertension, COPD, metastatic lung cancer, atrial fibrillation, congestive heart failure who presents with right hip pain after fall last night. He fell while walking in his bedroom. In the middle the night, approximately 2 AM, he developed severe right hip pain. In December he underwent hip surgery for pathologic right hip fracture. Home medications include Advair Pro-air Spiriva Eliquis ASA Diclofenac Gel Acetaminophen famotidine Metoprolol Percocet Pravastatin Tamsulosin Vit B12 Cyclobenzaprine Vit D Calcium Complaint: fall -: Last night Fall From: standing When Fall Occurred: other (yesterday evening) Fall Witnessed: no Place Fall Occurred: home Loss of Consciousness: none Prolonged Down Time?: no Location - Extremities: Right: Thigh Severity: severe Context: tripped/slipped Associated Symptoms: other (skin tears on the left arm) - Related Data Home Medications Medication Instructions Recorded Confirmed Last Taken Cyclobenzaprine HCl [Flexeril 5 MG 5 mg PO TID PRN 12/28/18 02/01/19 Unknown TAB] Diclofenac 1% [Diclofenac 1% 1 applic TP DAILY 12/28/18 02/01/19 Unknown topical gel] Famotidine [Pepcid] 20 mg PO HS 12/28/18 02/01/19 Unknown Metoprolol Xl [Metoprolol 25 mg PO QDAY 12/28/18 02/01/19 Unknown SUCCINATE ER TAB] ALBUTEROL Inhaler (OR & NICU) 2 puff IH QID PRN 02/01/19 02/01/19 Unknown [Proair] Fluticasone/Salmeterol [Advair 1 puff IH BID 02/01/19 02/01/19 Unknown Diskus 100-50 mcg] Tamsulosin [Flomax] 0.4 mg PO DAILY 02/01/19 02/01/19 Unknown Previous Rx's Medication Instructions Recorded Last Taken Type Apixaban [Eliquis] 5 mg PO Q12HR #60 tablet 09/20/18 Unknown Rx Arformoterol Nebu [Brovana Nebu] 15 mcg IH Q12HRT 30 Days #30 ml 09/20/18 Unknown Rx Aspirin [Aspirin BABY CHEW TAB] 81 mg PO DAILY #30 09/20/18 07/27/18 Rx Budesonide [Pulmicort Respules] 0.5 mg IH Q12HRT 30 Days nebu 09/20/18 Unknown Rx Pravastatin [Pravachol] 40 mg PO HS tablet 01/03/19 Unknown Rx QUEtiapine [SEROquel] 100 mg PO HS tablet 01/03/19 Unknown Rx oxyCODONE /ACETAMINOPHEN [Percocet 1 tab PO Q6HR PRN #10 tablet 01/03/19 Unknown Rx 5/325 mg] Allergies Allergy/AdvReac Type Severity Reaction Status Date / Time No Known Allergies Allergy Verified 12/12/13 06:46 ED Review of Systems ROS: Stated complaint: RT HIP PAIN Other details as noted in HPI Comment: All other systems reviewed and negative Constitutional: denies: fever, malaise Cardiovascular: denies: chest pain Musculoskeletal: arthralgia Skin: rash ED Past Medical Hx - Past Medical History Hx Hypertension: Yes Hx Heart Attack/AMI: No Hx Congestive Heart Failure: Yes Hx Deep Vein Thrombosis: Yes Hx GERD: Yes Hx Liver Disease: No Hx Renal Disease: No Hx Sickle Cell Disease: No Hx Arthritis: Yes Hx Seizures: Yes Hx Asthma: No Hx COPD: Yes (DAILY INHALERS) Hx HIV: No Additional medical history: Skin cancer - Surgical History Hx Pacemaker: No Hx Internal Defibrillator: No Additional Surgical History: Vein bypass- Right Leg - Social History Smoking Status: Former Smoker - Medications Home Medications: Home Medications Medication Instructions Recorded Confirmed Last Taken Type Apixaban [Eliquis] 5 mg PO Q12HR #60 tablet 09/20/18 02/01/19 Unknown Rx Arformoterol Nebu [Brovana Nebu] 15 mcg IH Q12HRT 30 Days #30 ml 09/20/18 02/01/19 Unknown Rx Aspirin [Aspirin BABY CHEW TAB] 81 mg PO DAILY #30 09/20/18 02/01/19 07/27/18 Rx Budesonide [Pulmicort Respules] 0.5 mg IH Q12HRT 30 Days nebu 09/20/18 02/01/19 Unknown Rx Cyclobenzaprine HCl [Flexeril 5 MG 5 mg PO TID PRN 12/28/18 02/01/19 Unknown History TAB] Diclofenac 1% [Diclofenac 1% 1 applic TP DAILY 12/28/18 02/01/19 Unknown History topical gel] Famotidine [Pepcid] 20 mg PO HS 12/28/18 02/01/19 Unknown History Metoprolol Xl [Metoprolol 25 mg PO QDAY 12/28/18 02/01/19 Unknown History SUCCINATE ER TAB] Pravastatin [Pravachol] 40 mg PO HS tablet 01/03/19 02/01/19 Unknown Rx QUEtiapine [SEROquel] 100 mg PO HS tablet 01/03/19 02/01/19 Unknown Rx oxyCODONE /ACETAMINOPHEN [Percocet 1 tab PO Q6HR PRN #10 tablet 01/03/19 02/01/19 Unknown Rx 5/325 mg] ALBUTEROL Inhaler (OR & NICU) 2 puff IH QID PRN 02/01/19 02/01/19 Unknown History [Proair] Fluticasone/Salmeterol [Advair 1 puff IH BID 02/01/19 02/01/19 Unknown History Diskus 100-50 mcg] Tamsulosin [Flomax] 0.4 mg PO DAILY 02/01/19 02/01/19 Unknown History ED Physical Exam - General Limitations: No Limitations General appearance: alert, in no apparent distress, other (pleasant jovial and talkative appears comfortable) - Head Head exam: Present: atraumatic, normocephalic - Eye Eye exam: Present: normal appearance - ENT ENT exam: Present: mucous membranes moist - Neck Neck exam: Present: normal inspection, full ROM - Respiratory Respiratory exam: Present: normal lung sounds bilaterally. Absent: respiratory distress, wheezes, rales, rhonchi - Cardiovascular Cardiovascular Exam: Present: regular rate, normal rhythm, normal heart sounds. Absent: systolic murmur, diastolic murmur, rubs, gallop - GI/Abdominal GI/Abdominal exam: Present: soft, normal bowel sounds. Absent: distended, tenderness, guarding, rebound - Extremities Exam Extremities exam: Present: other (patient is most comfortable with right lower extremity abducted and externally rotated and flexed at the knee, patient is able to move the extremity without difficulty or pain) - Back Exam Back exam: Present: normal inspection - Neurological Exam Neurological exam: Present: alert, oriented X3 - Psychiatric Psychiatric exam: Present: normal affect, normal mood - Skin Skin exam: Present: warm, dry, intact, normal color. Absent: rash ED Course Vital Signs 02/14/19 02/14/19 13:30 13:58 Temperature 97.4 F L Pulse Rate 98 H Respiratory 18 Rate Blood Pressure 123/72 O2 Sat by Pulse 86 96 Oximetry ED Medical Decision Making - Radiology Data Radiology results: report reviewed Right hip prosthesis in place without dislocation, no pelvis fracture or hip fracture according to my interpretation 4 views of pelvis radiographs - Medical Decision Making Mr. Harvey presents with right hip pain after fall. Recent hip surgery 6 weeks ago. I encouraged Mr. Avitia to take oxycodone and Flexeril more frequently if necessary. He was given reassurance. Discharged home in stable condition. No evidence of new fracture or dislocation. Critical care attestation.: If time is entered above; I have spent that time in minutes in the direct care of this critically ill patient, excluding procedure time. ED Disposition Clinical Impression: Hip pain, right, Fall, Presence of hip joint prosthesis Disposition: - TO HOME OR SELFCARE Is pt being admited?: No Does the pt Need Aspirin: No Condition: Stable Referrals: DERRICK VICENTE MD [Staff Physician] - as needed
--- NOTE | 2019-02-14 15:34 | XRay Report ---
Right hip-4 views INDICATION: Acute generalized right hip pain. COMPARISON: None. IMPRESSION: Rotated arthroplasty in satisfactory alignment with no complication identified. 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 Advanced atherosclerotic disease is seen in the arteries of the pelvis and thighs. Signer Name: Henrik Mercedes MD Signed: 02/14/2019 2:30 PM Workstation Name: [id number]
[2019-02-14 16:13] VITALS: BP 127/52
== END 2019-02-14 16:13 | disposition home or self-care (01) ==
LOC: ED 13:23
DX: M25.551 Pain in right hip (principal); I11.0 Hypertensive heart disease with heart failure; I50.9 Heart failure, unspecified; K21.0 Gastro-esophageal reflux disease with esophagitis; M19.90 Unspecified osteoarthritis, unspecified site; J44.9 Chronic obstructive pulmonary disease, unspecified; Z96.641 Presence of right artificial hip joint; Z86.718 Personal history of other venous thrombosis and embolism; Z85.828 Personal history of other malignant neoplasm of skin; Z98.890 Other specified postprocedural states; Z87.891 Personal history of nicotine dependence; Z79.82 Long term (current) use of aspirin; Z79.899 Other long term (current) drug therapy; W01.0XXA Fall on same level from slipping, tripping and stumbling without subsequent striking against object, initial encounter; Y93.01 Activity, walking, marching and hiking; Y92.092 Bedroom in other non-institutional residence as the place of occurrence of the external cause; Y99.8 Other external cause status
CPT/HCPCS: 99283

== ENCOUNTER 2019-02-28 11:39 | Outpatient (CLI) | payer BC, MEDICARE ==
--- NOTE | 2019-02-28 12:45 | XRay Report ---
LEFT SHOULDER, 3 VIEWS INDICATION: PAIN IN LEFT SHOULDER (M25.512.). COMPARISON: None. IMPRESSION: A nondisplaced fracture is identified in the distal third of the left clavicle. There is mild calcified callus near the fracture although the fracture lines remain evident. This has the michael earance of a subacute, healing fracture. The scapula and proximal left humerus are intact. Mild osteo arthritic changes are identified at the acromioclavicular joint. The soft tissues are unremarkable. Signer Name: Ray Soares Jr, MD Signed: 02/28/2019 12:40 PM Workstation Name: [id number]
== END 2019-02-28 11:40 | disposition home or self-care (01) ==
LOC: XRAY 11:39
PROVIDERS: ATTEND Internal Medicine
DX: S42.035A Nondisplaced fracture of lateral end of left clavicle, initial encounter for closed fracture (principal); I11.0 Hypertensive heart disease with heart failure; I50.9 Heart failure, unspecified; E78.00 Pure hypercholesterolemia, unspecified; J44.9 Chronic obstructive pulmonary disease, unspecified; K21.9 Gastro-esophageal reflux disease without esophagitis; X58.XXXA Exposure to other specified factors, initial encounter; Y93.89 Activity, other specified; Y92.89 Other specified places as the place of occurrence of the external cause; Y99.8 Other external cause status

== ENCOUNTER 2019-05-07 20:52 | Emergency (ER) | payer MEDICARE ==
[2019-05-07] MEDS ORDERED: SODIUM CHLORIDE 0.9% 1000 ML 1,000 ML ONE (21:01)
[2019-05-07] MEDS ORDERED: EPINEPHrine 1:1000 8 MG in SODIUM CHLORIDE 0.9% 250ML 242 ML IV ONE ×2 (21:02→22:00)
[2019-05-07] MEDS ORDERED: SODIUM CHLORIDE 0.9% 1000 ML 1,000 ML IV ONE (21:06)
[2019-05-07] MEDS ORDERED: CEFEPIME/NS 2 GM/100 ML 2 GM/100 ML BAG IV ONE (21:08)
--- NOTE | 2019-05-07 21:09 | Emergency Department Report ---
ED CPR HPI - General Stated Complaint: CARDIAC ARREST Time Seen by Provider: 05/07/19 20:52 Source: EMS Mode of arrival: Stretcher Limitations: Altered Mental Status, Physical Limitation - History of Present Illness Initial Comments: Patient is a 74-year-old male that presents emergency room for a cardiac arrest. Patient had a DO NOT RESUSCITATE but the family overrode to DO NOT RESUSCITATE and EMS started CPR. Patient was intubated and had multiple rounds of epi and CPR. Report received from EMS. Patient had a spontaneous return of circulation in the field just prior to arrival. MD Complaint: found unresponsive -: minute(s) Place: home Bystander CPR Performed: No AED Applied by Bystander/Tower Foreman: No Shock Advised: No Initial Findings in the Field: unresponsive, no respirations, no pulse ROSC in the Field: Yes Associated Injuries: No Associated Symptoms: other Treatments Prior to Arrival: intubation, chest compressions, epinephrine mgs # - Related Data Home Medications Medication Instructions Recorded Confirmed Last Taken Cyclobenzaprine HCl [Flexeril 5 MG 5 mg PO TID PRN 12/28/18 02/01/19 Unknown TAB] Diclofenac 1% [Diclofenac 1% 1 applic TP DAILY 12/28/18 02/01/19 Unknown topical gel] Famotidine [Pepcid] 20 mg PO HS 12/28/18 02/01/19 Unknown Metoprolol Xl [Metoprolol 25 mg PO QDAY 12/28/18 02/01/19 Unknown SUCCINATE ER TAB] ALBUTEROL Inhaler (OR & NICU) 2 puff IH QID PRN 02/01/19 02/01/19 Unknown [Proair] Fluticasone/Salmeterol [Advair 1 puff IH BID 02/01/19 02/01/19 Unknown Diskus 100-50 mcg] Tamsulosin [Flomax] 0.4 mg PO DAILY 02/01/19 02/01/19 Unknown Previous Rx's Medication Instructions Recorded Last Taken Type Apixaban [Eliquis] 5 mg PO Q12HR #60 tablet 09/20/18 Unknown Rx Arformoterol Nebu [Brovana Nebu] 15 mcg IH Q12HRT 30 Days #30 ml 09/20/18 Unknown Rx Aspirin [Aspirin BABY CHEW TAB] 81 mg PO DAILY #30 09/20/18 07/27/18 Rx Budesonide [Pulmicort Respules] 0.5 mg IH Q12HRT 30 Days nebu 09/20/18 Unknown Rx Pravastatin [Pravachol] 40 mg PO HS tablet 01/03/19 Unknown Rx QUEtiapine [SEROquel] 100 mg PO HS tablet 01/03/19 Unknown Rx oxyCODONE /ACETAMINOPHEN [Percocet 1 tab PO Q6HR PRN #10 tablet 01/03/19 Unknown Rx 5/325 mg] Allergies Allergy/AdvReac Type Severity Reaction Status Date / Time No Known Allergies Allergy Verified 12/12/13 06:46 ED Review of Systems ROS: Stated complaint: CARDIAC ARREST Other details as noted in HPI Comment: Unobtainable due to pts medical conditions ED Past Medical Hx - Past Medical History Hx Hypertension: Yes Hx Heart Attack/AMI: No Hx Congestive Heart Failure: Yes Hx Deep Vein Thrombosis: Yes Hx GERD: Yes Hx Liver Disease: No Hx Renal Disease: No Hx Sickle Cell Disease: No Hx Arthritis: Yes Hx Seizures: Yes Hx Asthma: No Hx COPD: Yes (DAILY INHALERS) Hx HIV: No Additional medical history: Skin cancer - Surgical History Hx Pacemaker: No Hx Internal Defibrillator: No Additional Surgical History: Vein bypass- Right Leg - Social History Smoking Status: Former Smoker - Medications Home Medications: Home Medications Medication Instructions Recorded Confirmed Last Taken Type Apixaban [Eliquis] 5 mg PO Q12HR #60 tablet 09/20/18 02/01/19 Unknown Rx Arformoterol Nebu [Brovana Nebu] 15 mcg IH Q12HRT 30 Days #30 ml 09/20/18 02/01/19 Unknown Rx Aspirin [Aspirin BABY CHEW TAB] 81 mg PO DAILY #30 09/20/18 02/01/19 07/27/18 Rx Budesonide [Pulmicort Respules] 0.5 mg IH Q12HRT 30 Days nebu 09/20/18 02/01/19 Unknown Rx Cyclobenzaprine HCl [Flexeril 5 MG 5 mg PO TID PRN 12/28/18 02/01/19 Unknown History TAB] Diclofenac 1% [Diclofenac 1% 1 applic TP DAILY 12/28/18 02/01/19 Unknown History topical gel] Famotidine [Pepcid] 20 mg PO HS 12/28/18 02/01/19 Unknown History Metoprolol Xl [Metoprolol 25 mg PO QDAY 12/28/18 02/01/19 Unknown History SUCCINATE ER TAB] Pravastatin [Pravachol] 40 mg PO HS tablet 01/03/19 02/01/19 Unknown Rx QUEtiapine [SEROquel] 100 mg PO HS tablet 01/03/19 02/01/19 Unknown Rx oxyCODONE /ACETAMINOPHEN [Percocet 1 tab PO Q6HR PRN #10 tablet 01/03/19 02/01/19 Unknown Rx 5/325 mg] ALBUTEROL Inhaler (OR & NICU) 2 puff IH QID PRN 02/01/19 02/01/19 Unknown History [Proair] Fluticasone/Salmeterol [Advair 1 puff IH BID 02/01/19 02/01/19 Unknown History Diskus 100-50 mcg] Tamsulosin [Flomax] 0.4 mg PO DAILY 02/01/19 02/01/19 Unknown History ED Physical Exam - General Limitations: Altered Mental Status, Physical Limitation General appearance: obtunded - Head Head exam: Present: atraumatic, normocephalic - Eye Eye exam: Present: other (pupils fixed and dilated) - ENT ENT exam: Present: other (pt intubated) - Neck Neck exam: Present: normal inspection - Respiratory Respiratory exam: Present: other (bilateral breath sounds noted. Patient is intubated.) - Cardiovascular Cardiovascular Exam: Present: regular rate, normal rhythm - GI/Abdominal GI/Abdominal exam: Present: soft. Absent: distended - Rectal Rectal exam: Present: deferred - Extremities Exam Extremities exam: Present: normal inspection - Skin Skin exam: Present: warm, dry, intact, normal color. Absent: rash ED Course Vital Signs 05/07/19 05/07/19 05/07/19 21:18 21:59 22:00 Temperature 97.5 F L Pulse Rate 92 H 108 H 107 H Respiratory 16 18 18 Rate Blood Pressure 112/28 71/30 69/30 O2 Sat by Pulse 82 L 83 L Oximetry 05/07/19 05/07/19 05/07/19 22:01 22:02 22:03 Temperature Pulse Rate 106 H 106 H 106 H Respiratory 18 18 18 Rate Blood Pressure 67/30 68/29 67/30 O2 Sat by Pulse Oximetry 05/07/19 05/07/19 05/07/19 22:04 22:05 22:06 Temperature Pulse Rate 106 H 105 H 105 H Respiratory 18 18 18 Rate Blood Pressure 67/29 65/29 66/28 O2 Sat by Pulse Oximetry 05/07/19 05/07/19 05/07/19 22:07 22:08 22:09 Temperature Pulse Rate 105 H 104 H 104 H Respiratory 18 18 18 Rate Blood Pressure 67/28 63/31 67/30 O2 Sat by Pulse Oximetry 05/07/19 05/07/19 05/07/19 22:10 22:11 22:12 Temperature Pulse Rate 104 H 104 H 104 H Respiratory 18 18 18 Rate Blood Pressure 65/31 66/29 67/29 O2 Sat by Pulse Oximetry 05/07/19 05/07/19 05/07/19 22:13 22:14 22:15 Temperature Pulse Rate 107 H 106 H 110 H Respiratory 18 18 17 Rate Blood Pressure 98/36 98/36 114/39 O2 Sat by Pulse Oximetry 05/07/19 05/07/19 05/07/19 22:16 22:17 22:18 Temperature Pulse Rate 112 H 113 H 113 H Respiratory 16 18 18 Rate Blood Pressure 106/35 100/33 92/31 O2 Sat by Pulse 98 97 Oximetry 05/07/19 05/07/19 05/07/19 22:19 22:20 22:21 Temperature Pulse Rate 113 H 113 H 112 H Respiratory 15 18 19 Rate Blood Pressure 86/31 84/29 81/27 O2 Sat by Pulse 96 93 89 Oximetry 05/07/19 05/07/19 05/07/19 22:22 22:23 22:24 Temperature Pulse Rate 112 H 112 H 111 H Respiratory 22 18 21 Rate Blood Pressure 77/29 76/28 71/29 O2 Sat by Pulse 82 L 78 L 76 L Oximetry 05/07/19 05/07/19 05/07/19 22:25 22:26 22:27 Temperature Pulse Rate 111 H 111 H 111 H Respiratory 20 20 21 Rate Blood Pressure 73/29 74/31 72/27 O2 Sat by Pulse 75 L 80 L 93 Oximetry 05/07/19 05/07/19 05/07/19 22:28 22:29 22:30 Temperature Pulse Rate 110 H 112 H 111 H Respiratory 20 24 22 Rate Blood Pressure 70/27 72/28 69/28 O2 Sat by Pulse 95 93 91 Oximetry 05/07/19 05/07/19 05/07/19 22:31 22:32 22:33 Temperature Pulse Rate 111 H 110 H 111 H Respiratory 24 21 23 Rate Blood Pressure 70/29 70/28 68/26 O2 Sat by Pulse 91 89 87 Oximetry 05/07/19 05/07/19 05/07/19 22:34 22:35 22:36 Temperature Pulse Rate 110 H 110 H 110 H Respiratory 23 24 24 Rate Blood Pressure 64/27 63/27 61/26 O2 Sat by Pulse 81 L 75 L 68 L Oximetry 05/07/19 05/07/19 05/07/19 22:37 22:38 22:39 Temperature Pulse Rate 109 H 109 H 110 H Respiratory 22 24 21 Rate Blood Pressure 60/24 58/27 57/27 O2 Sat by Pulse 65 L 63 L 49 L Oximetry 05/07/19 05/07/19 05/07/19 22:40 22:41 22:42 Temperature Pulse Rate 109 H 107 H 105 H Respiratory 21 26 H 24 Rate Blood Pressure 56/22 59/25 57/26 O2 Sat by Pulse 80 L 70 L 70 L Oximetry 05/07/19 05/07/19 05/07/19 22:43 22:44 22:45 Temperature Pulse Rate 104 H 103 H 103 H Respiratory 22 21 17 Rate Blood Pressure 62/26 61/26 62/26 O2 Sat by Pulse 61 L 54 L 47 L Oximetry 05/07/19 05/07/19 05/07/19 22:46 22:47 22:49 Temperature Pulse Rate 102 H 94 H 43 L Respiratory 20 18 0 L Rate Blood Pressure 57/26 47/20 47/20 O2 Sat by Pulse 26 L Oximetry - Reevaluation(s) Reevaluation #1: Patient arrives with EMS. Initial evaluation done. Patient had spontaneous return of circulation just prior to arrival. Report received from EMS. Patient has a DO NOT RESUSCITATE but the family overrode DO NOT RESUSCITATE. 05/07/19 20:52 Reevaluation #2: pt went to cardiac arrest again. 05/07/19 21:01 Patient had spontaneous return of circulation. Patient placed on epi drip. Patient given fluids. code ran in accordance with ACLS guidelines. See code note. 05/07/19 21:03 0 Reevaluation #3: Blood pressure stilll low, will start patient on dopamine 05/07/19 21:30 Reevaluation #4: Blood pressure still low we will start patient on Levophed and place a central line. I discussed with family and family wants everything done. 05/07/19 22:00 Reevaluation #5: cvl line placed. See procedure note. 05/07/19 22:20 Patient's family has decided to withdraw care, /poa states they do not want anymore done. DO NOT RESUSCITATE order signed by POA/ and witnessed by myself and nurse. Drips will be stopped and an patient will be extubated. 05/07/19 22:29 Patient . Family support given. 05/07/19 22:52 - Central Line Placement Left Femoral Consent Obtained: emergent situation Time Out Performed: Yes Patient Placed on Monitor/Pulse Ox: Yes Prep: mask, gown, gloves Central Line Prep: Chlorhexidine scrub, sterile drapes applied Ultrasound Used for Placement: Yes Central Line Lumen Inserted: triple Bloods Obtained for Lab: Yes Central Line Position: good blood return, all ports aspirated, flus, sutured in place with 2-0 Dressing Applied: Tegaderm Patient Tolerated Procedure: well, no complications Complications: none ED Medical Decision Making - Lab Data Result diagrams: 05/07/19 21:47 05/07/19 21:47 - EKG Data -: EKG Interpreted by Me EKG shows normal: sinus rhythm, intervals, QRS complexes, ST-T waves Rate: bradycardia - EKG Data Interpretation: other (abnormal axis.) - Radiology Data Radiology results: report reviewed, image reviewed - Medical Decision Making patient is a 74-year-old male that presents emergency room of cardiac arrest. Patient was a DO NOT RESUSCITATE however the family DO NOT RESUSCITATE to EMS and EMS initiated resuscitation. Patient had spontaneous circulation prior to arrival. Patient then went back into cardiac arrest in the ER and again spontaneous return of circulation. Patient was then placed on epi drip. Patient remained hypotensive and then was placed on a dopamine drip patient continued to have hypotension was eventually placed on Levophed. A central line was placed for IV access and for pressors. After the central line was placed the family decided they didn't want anymore done. The power of electric distribution checker/ signed the withdrawal of care and DO NOT RESUSCITATE form. The original DO NOT RESUSCITATE and withdrawal form placed on chart. Patient shortly after the withdraw of drips and ET tube. - Differential Diagnosis cardiac arrest Critical Care Time: Yes Critical care attestation.: If time is entered above; I have spent that time in minutes in the direct care of this critically ill patient, excluding procedure time. Critical Care Time: 80 minutes ED Disposition Clinical Impression: Cardiac arrest Hypotension Qualifiers: Hypotension type: unspecified hypotension type Qualified Code(s): I95.9 - Hypotension, unspecified Disposition: DC-20 Is pt being admited?: No Does the pt Need Aspirin: No Condition: Undetermined Time of Disposition: 22:55
[2019-05-07] MEDS ORDERED: DOPamine/D5W 800 MG/250 ML 800 MG/250 ML BAG IV ONE (21:41)
[2019-05-07] MEDS ORDERED: VASOPRESSIN 20 UNIT in SODIUM CHLORIDE 0.9% 100 ML IV ONE (22:00)
[2019-05-07] MEDS ORDERED: NORepinephrine/NS 4 MG-250 ML 4 MG/250 ML BAG IV ONE (22:06)
[2019-05-07 22:24] LABS: INR 2.17 (0.87-1.13); Partial Thromboplastin Time 40.9 Sec. (24.2-36.6)
[2019-05-07 22:36] LABS: Creatine Kinase MB 10.8 ng/mL (0.0-4.0)
[2019-05-07 22:38] LABS: Albumin 2.4 g/dL (3.9-5); Hemoglobin 8.1 gm/dl (11.8-15.2); Red Blood Count 2.75 M/mm3 (3.65-5.03)
[2019-05-07 22:39] LABS: Mean Corpuscular HGB Conc 27 % (32-34); Mean Corpuscular Volume 109 fl (84-94); Platelet Count 299 K/mm3 (140-440); Red Cell Distribution Width 25.9 % (13.2-15.2)
[2019-05-07 22:52] VITALS: BP 47/20
[2019-05-07] MEDS ORDERED: NORepinephrine/NS 4 MG-250 ML 4 MG/250 ML BAG IV SCH (23:00)
[2019-05-07 23:10] LABS: Band Neutrophils # (Manual) 8.2 K/mm3; Basophils % (Manual) 0 % (0.0-1.8); Eosinophils % (Manual) 0 % (0.0-4.3); Total Cells Counted 100
[2019-05-07 23:11] LABS: Anisocytosis 2+; Poikilocytosis 1+
[2019-05-07 23:16] LABS: Large Platelets Few
[2019-05-07 23:17] LABS: Burr Cells 1+; Giant Platelets Few; Ovalocytes 1+; Platelet Estimate Consistent w Auto
[2019-05-07 23:18] LABS: Hypochromasia 1+
--- NOTE | 2019-05-07 23:29 | XRay Report ---
CHEST 1 VIEW 05/07/2019 9:22 PM INDICATION / CLINICAL INFORMATION: cardia arrest. COMPARISON: Chest x-ray on 12/28/2018. FINDINGS: SUPPORT DEVICES: ET tube has been placed with the tip projecting about 1 cm above the madi. NG tube is seen extending below the diaphragm. HEART / MEDIASTINUM: Stable normal heart size. LUNGS / PLEURA: Increased bilateral perihilar opacities likely reflecting pulmonary edema. No pneumot horax. ADDITIONAL FINDINGS: No significant additional findings. IMPRESSION: 1. ET tube tip is about 1 cm above the madi. Retraction should be considered. 2. Bilateral perihilar opacities likely reflecting development of mild pulmonary edema since the prio r study. Signer Name: Jim Lomeli MD Signed: 05/07/2019 11:24 PM Workstation Name: [id number]
[2019-05-08] MEDS ORDERED: SODIUM BICARB 8.4% 50 MEQ/50 ML SYRINGE IV ONE (10:38)
[2019-05-08] MEDS ORDERED: EPINEPHrine 1:10,000 1 MG/10 ML SYRINGE ONE (10:38)
== END 2019-05-08 00:50 ==
LOC: ED 20:52
DX: I46.9 Cardiac arrest, cause unspecified (principal); I95.9 Hypotension, unspecified; I11.0 Hypertensive heart disease with heart failure; I50.9 Heart failure, unspecified; K21.9 Gastro-esophageal reflux disease without esophagitis; M19.90 Unspecified osteoarthritis, unspecified site; J44.9 Chronic obstructive pulmonary disease, unspecified; Z86.718 Personal history of other venous thrombosis and embolism; Z87.891 Personal history of nicotine dependence; Z79.82 Long term (current) use of aspirin; Z79.899 Other long term (current) drug therapy
CPT/HCPCS: 36415; 36556; 71045; 80053; 82550; 82553; 82962; 84484; 85007; 85025; 85610; 85730; 86850; 86900; 86901; 92950; 93005; 93010; 96365; 96367; 96368; 99291; 99292; J0171; J0692; J7030; J7050; 94002